=== PATIENT | male | born 1950 | race Caucasian/White ===

== ENCOUNTER → 2018-04-07 13:11 | Outpatient (BNVA) | payer MEDICARE, SELFPAY | PROVIDERS: PCP Specialist/Technologist Athletic Trainer; Referring Provider Specialist/Technologist Athletic Trainer; Visit Provider Physical Therapy Assistant | DX: Z12.11 Encounter for screening for malignant neoplasm of colon (principal); I10 Essential (primary) hypertension ==

== ENCOUNTER 2018-04-28 10:07 | Day surgery (SDC) | payer MEDICARE, SELFPAY ==
--- NOTE | 2018-04-28 06:53 | W.COLOREPORT ---
Date of service: 04/28/18 Time of Service: 11:44 Colonoscopy Report Date of procedure: 04/28/18 Pre-op diagnosis general: Colon Cancer Screening Post-op diagnosis procedure note: other (colorectal polyps) Procedure: Colonoscopy with polypectomy by forceps and hot snare Surgeon: Marta Mejia Anesthesia proc note operative: MAC ([place], FL[employer]ANGING [employer]BER/ ASA 3) Estimated blood loss (mL): 5 Pathology: other (ascending polyps x2, rectal polyp x2) Complications: None Disposition: same day Indications: Mr. Marquez is a pleasant 67 year old male who was seen in the office for a screening colonoscopy. Risks, benefits and complications have been reviewed. Complications include but are not limited to bleeding, pain, perforation, missed small lesion/polyp, sore throat, aspiration and adverse reaction to the medications. Questions were entertained and answered to their satisfaction and they wished to proceed. No guarantees were given or implied. Prep: Miralax/Dulcolax Procedure Start Time: 11:44 Procedure End Time: 12:15 Retraction Time: 24 Findings: 1. Ascending colon polyps x 2 2. proximal rectal polyp x1 3/ distal rectal polyp x1 Procedure Description: After informed consent was obtained the patient was taken to the procedure room and placed in a left decubitous position. Monitors were applied and a time out was done. The patients name, date of , procedure, allergies to medications and metal in their body was reviewed. The patient was then sedated. Once sedated and comfortable a rectal exam was done. External exam was normal. Internal exam revealed a normal sphincter tone and no palpable masses. The prostate was smooth. The scope was then introduced and retro-flexed. No internal hemorrhoids were identified. The scope was then advanced to the cecum without difficulty. The TI and appendiceal orifice were identified. The prep was good. The scope was then slowly retracted over 24 minutes back into the rectum. Polyps were removed in the ascending colon x2 with cold forceps, one in the proximal rectum with hot snare and one in the distal rectum with cold forceps. The scope was removed and the patient was woken up and taken back to Same day surgery in stable condition. The patient tolerated the procedure well and there were no immediate complications. Follow up: The patient should follow up in 3-5 years unless they develop changes in bowel habits or other new gastrointestinal complaints.
--- NOTE | 2018-04-28 06:56 | PDOC.DSDIS_ITS ---
Discharge Plan Disposition Patient Disposition: HOME Condition: Good Discharge Details Reason For Visit: colon Cancer Screening Attending Provider: Marta Mejia Primary Care Provider: Morales Back Home Meds and New Rx's Prescriptions: Continued prednisone 1 mg tablet,delayed release (DR/EC) 1 mg PO DAILY RF: 0 omeprazole 20 mg capsule,delayed release(DR/EC) 20 mg PO DAILY RF: 0 hydroxychloroquine 200 mg tablet 200 mg PO BID RF: 0 Breo Ellipta 100-25 mcg/dose blister with device 1 inh IH DAILY RF: 0 Chantix 0.5 mg tablet 0.5 mg PO DAILY RF: 0 lisinopril 10 MG tablet 10 mg PO QAM RF: 0 bupropion HCl 150 MG tablet extended release 12 hr 1 tab PO BID RF: 0 aspirin [Aspir-81] 81 MG tablet,delayed release (DR/EC) 1 tab PO DAILY RF: 0 cholecalciferol (vitamin D3) 1,000 UNITS tablet 1 tab PO DAILY RF: 0 naproxen sodium [Aleve] 220 MG capsule 2 cap PO BID RF: 0 Discontinued bisacodyl [Dulcolax (bisacodyl)] 5 mg tablet,delayed release (DR/EC) 5 mg PO ONCE Qty: 4 RF: 0 polyethylene glycol 3350 17 gram/dose powder 255 g PO ONCE Qty: 255 RF: 0 Discharge Instructions Instructions: Colonoscopy (DC), Colorectal Polyps (DC) Additional Instructions: Findings: 4 polyps Follow up: 3-5 years Please call if you develop: fevers >101.5 Nausea or Vomiting Abdominal pain that is not transient DAY SURGERY UNIT POST COLONOSCOPY INSTRUCTIONS 1. Because there will be medication in your system for the next 24 hours, you may feel a little sleepy. Your coordination will be affected. Therefore: a. Do not drive or operate dangerous equipment for 24 hours. b. Do not drink alcohol beverages for 24 hours (not even beer). c. Plan to go home and rest for the day. 2. Generally there are no restrictions on your activity after a day or so has gone by, but you may feel a bit fatigued for a few days. 3 After you arrive home you may have a light meal and return to a normal diet as you can tolerate it without feeling sick to your stomach. 4. After surgery, you may feel pain or discomfort. This should be only transie nt, but if it persists please contact your doctor. 5. If there are any questions regarding the findings of your procedure, please feel free to contact your doctor. 6. If you are unable to contact your doctor with a problem, contact the hospital at [phone]. 7. Continue all your regular medications unless directed otherwise. I understand the above instructions and have no questions. Signature of Patient or Responsible Adult Escort Date/Time Name of Responsible Adult Escort Signature of Nurse Date/Time Activity:: Activity as Tolerated Diet:: As Tolerated Discharge Orders Discharge Orders: Discharge Order (Routine); Ordered 04/28/18 Ordered By: Marta Mejia DS: Diagnosis Discharge Diagnosis (1) S/P colonoscopy: Status: Acute (2) Colorectal polyp detected on colonoscopy: Status: Acute
[2018-04-28 10:43] VITALS: BP 158/85; PULSE 61; RESP 16; TEMP 36.6; O2SAT 96
[2018-04-28] MEDS: Lactated Ringers 1,000 ML 80 ML IV (11:07)
--- NOTE | 2018-04-28 11:53 | BOWEL_PTH ---
PATIENT: Rajan Marquez LOC: [facility] U#:[id number] AGE/SX: 67/M ROOM: RE04/28/[address]: Marta Mejia MD : 1950 BED: DIS: 04/28/2018 SPEC #: [id number] RECD: 04/28/18 13:12 STATUS: STACIA RE #: [id number] ARIANE: 04/28/18 11:[address]: Marta Mejia DEPT: Surgical Specimen RECD BY: Elaine Paul ENTERED: 04/28/18 13:14 SP TYPE: Bowel OTHR DR: Morales Back Tissues: 1 - BIOPSY BOWEL 2 - BIOPSY BOWEL 3 - BIOPSY BOWEL Procedures: GROSS AND MICRO LEVEL 4 Comments: [id number]
[2018-04-28 12:49] VITALS: BP 138/70; PULSE 58; RESP 16; TEMP 35.5; O2SAT 98
== END 2018-04-28 13:13 | disposition home or self-care (01) ==
LOC: SUR 10:08
PROVIDERS: PCP Specialist/Technologist Athletic Trainer; Visit Provider Surgery
PROC: 0DJD8ZZ Inspection of Lower Intestinal Tract, Via Natural or Artificial Opening Endoscopic (ICD-10-PCS; CPT 45378; principal; 2018-04-28 10:30)
DX: Z12.11 Encounter for screening for malignant neoplasm of colon (principal); D12.2 Benign neoplasm of ascending colon; D12.8 Benign neoplasm of rectum; K21.9 Gastro-esophageal reflux disease without esophagitis; I10 Essential (primary) hypertension; F17.210 Nicotine dependence, cigarettes, uncomplicated
CPT/HCPCS: 45385; 45380; 88305

== ENCOUNTER 2018-12-12 13:19 | Outpatient (CLI) | payer MEDICARE, SELFPAY ==
[2018-12-12 13:43] LABS: HCT 42.4 % (40.0-50.0); HGB 14.5 g/dL (13.5-17.5)
[2018-12-12 14:20] LABS: Anion Gap 13.5 mmol/L (3-11); BUN 27 mg/dL (7-18); CO2 23.5 mmol/L (21.0-32.0); CREATININE 1.16 mg/dL (0.70-1.30); Calcium 9.5 mg/dL (8.5-10.1); Chloride 104 mmol/L (98-107); Glucose 80 mg/dL (70-100); Potassium 4.1 mmol/L (3.5-5.1); Sodium 141 mmol/L (136-145)
== END 2018-12-12 13:39 ==
PROVIDERS: PCP Specialist/Technologist Athletic Trainer; Visit Provider Specialist/Technologist Athletic Trainer
DX: I10 Essential (primary) hypertension (principal)
CPT/HCPCS: 36415; 80048; 85014; 85018

== ENCOUNTER 2019-09-18 02:08 | Outpatient (CLI) | payer OTHER, SELFPAY ==
--- NOTE | 2019-09-18 10:45 | DI.CTLCSR_ITS ---
EXAM: CT CHEST LUNG CANCER SCREEN CLINICAL HISTORY: The patient reportedly has a History of Smoking 30 pack years and presently smokes or has quit the past 15 years. TECHNIQUE: Imaging Protocol: Axial computed tomography images with coronal and sagittal reformatted images were created and reviewed. Low-dose screening protocol. COMPARISON: No exams were available for comparison FINDINGS: Tracheobronchial tree: Patent where visualized. Mediastinum and Jana: No dominant adenopathy or fluid collection. Pulmonary parenchyma: No consolidation or dominant measurable mass. No architectural distortion. Lung Nodules: 5 millimeter circumscribed nodule left lower lobe. Pleura: No effusion or pneumothorax. Heart: The heart is not dilated. No coronary artery calcifications are seen. Aorta: Thoracic aorta non-dilated. Mild calcification. Upper abdomen: Unremarkable. Bones: Mild degenerative disc changes in the spine.. Soft Tissues: Unremarkable. IMPRESSION: 5 millimeter left lower lobe nodule. Lung RADS Cat 2 - Benign Appearance / Behavior: Nodules with a very low likelihood of becoming a clin ically active cancer due to size or lack of growth Lung-RADS 1.0 CATEGORIES: Category 0 - Prior chest CT exam(s) being located for comparison. Category 1 - Annual screening in 12 months. No nodules or definitely benign nodules. Category 2 - Annual screening in 12 months. Benign appearance. Nodules with low likelihood of becomin g active cancer. Category 3 - 6-month follow-up. Probably benign. Short-term follow-up suggested. Nodules with low lik elihood of becoming active cancer. Category 4A - 3-month follow-up and CT/PET if >8 mm in size. Suspicious finding. Findings which requi re additional testing. Category 4B - Findings which require additional testing and tissue sampling. Suspicious finding. C Added to Any of the Above - History of prior lung cancer screening. S Added to Any of the Above - Significant unexpected other finding. RADIATION DOSE DELIVERED: 95.81mGy.cm Total DLP DATA REPOSITORY: All CT scans at this facility are submitted to the National Radiology Data Registry (NRDR) Dose Index Registry (DIR) with the [employer] (ACR). RADIATION OPTIMIZATION: All CT scans at this facility use at least one of these dose optimization te chniques: automated exposure control; mA and/or kV adjustment per patient size (includes targeted exa ms where dose is matched to clinical indication); or iterative reconstruction.
== END 2019-09-18 02:28 ==
PROVIDERS: PCP Specialist/Technologist Athletic Trainer; Visit Provider Internal Medicine
DX: Z12.2 Encounter for screening for malignant neoplasm of respiratory organs (principal); F17.210 Nicotine dependence, cigarettes, uncomplicated; R91.1 Solitary pulmonary nodule
CPT/HCPCS: G0297

== ENCOUNTER 2020-05-18 09:39 | Outpatient (REF) | payer OTHER, SELFPAY ==
--- OUTSIDE RECORDS SUMMARY | 2020-05-18 09:51 | XMS_ITS ---
:1950 Author Care Team Providers Name Role Phone [facility] Primary Care Provider [phone] Allergies Code Code System Name Reaction Severity Status Onset NKDA ? Medications Name Status Start Date Stop Date ? ? Breo Ellipta 200 mcg-25 mcg/dose powder for inhalation Active ? Not available Inhale 1 puff every day by inhalation route. Flomax 0.4 mg capsule,extended release Active ? Not available Take 1 capsule every day by oral route. fluticasone furoate 100 mcg-vilanterol 25 mcg/dose inhalation po wder Active ? Not available Inhale 1 puff every day by inhalation route. hydroxychloroquine 200 mg tablet Active ? Not available Take 1 tablet every day by oral route. lisinopril 20 mg tablet Active ? Not avai lable Take 1 tablet every day by oral route. Low Dose Aspirin 81 mg tablet,delayed release Active ? Not available Take 1 tablet every day by oral route. omeprazole 20 mg capsule,delayed release Active ? Not available Take 1 capsule every day by oral route. Proair Digihaler 90 mcg/actuation aerosol powder breath act, sen sor Active ? Not available Inhale 2 puffs every 4 hours by inhalation route. sildenafil 50 mg tablet Active ? Not avai lable Take 1 tablet every day by oral route. Vitamin D Active ? Not available Wellbutrin SR 150 mg tablet, 12 hr sustained-release Active ? Not available Take 1 tablet twice a day by oral route. Problems Name Status Onset Date Source ? Adenomatous Polyp of Colon Active 09/08/2019 ? Anxiety Active 09/08/2019 ? Alcohol Abuse Active 09/08/2019 ? Nicotine Dependence Active 09/08/2019 ? Depressive Disorder Active 09/08/2019 ? Attention Deficit Hyperactivity Disorder Active 020 ? Cataract Active 09/08/2019 ? Hearing Loss Active 09/08/2019 ? Hypertensive Disorder Active 09/08/2019 ? Coronary Arteriosclerosis Active 09/08/2019 ? Chronic Obstructive Lung Disease Active 09/08/2019 ? Benign Prostatic Hyperplasia Active 09/08/2019 ? Procedures Date Name Performed by ? 09/10/2019 LDCT, Chest, for Lung Cancer Xray [facility] [address] [place], [place] [address] ([address]) 10/16/2019 LDCT, Chest, for Lung Cancer Xray [facility] [address] [place], [place] [address] (Work [address]) Results Lab Results None recorded. Past Encounters 10/16/2019 Chronic Obstructive Lung Disease; Smoker Kasie Marcus MD: [address] [place] [address] Dr javed [address] [phone], Ph. 09/10/2019 Chronic Obstructive Lung Disease; Smoker Kasie Marcus MD: [address] [place] [address] Dr javed [address] [phone], Ph. Social History Tobacco Smoking Status Heavy Tobacco Smoker (1 PPD) Vaccine List Vaccine Type influenza, injectable, quadrivalent 05/28/2019 pneumococcal conjugate PCV 13 12/08/2015 pneumococcal polysaccharide PPV23 12/27/2011 Tdap 12/27/2011 Plan of Care Reminders Provider Appointments None ? ? recorded. Lab None ? ? recorded. Referral None ? ? recorded. Procedures None ? ? recorded. Surgeries None ? ? recorded. Imaging None ? ? recorded. Vitals 10/16/2019 09:00AM Office 15 Height Weight BMI Blood Pressure 172.72 cm 94 kg 31.5 kg/m2 120/70 mm[Hg] 09/10/2019 10:45AM Office 15 Height Weight BMI Blood Pressure 172.72 cm 97 kg 32.5 kg/m2 130/82 mm[Hg]
[2020-05-18 17:09] LABS: Anion Gap 12.1 mmol/L (3-11); BUN 28 mg/dL (7-18); CO2 24.9 mmol/L (21.0-32.0); CREATININE 1.3 mg/dL (0.70-1.30); Calcium 9.5 mg/dL (8.5-10.1); Calculated LDL 88 mg/dL (<100); Chloride 103 mmol/L (98-107); Cholesterol 148 mg/dL (<200); Estimated GFR 54.57 (mL/min/1.73m2); Glucose 95 mg/dL (74-106); HDL Cholesterol 51 mg/dL (40-60); Potassium 4.4 mmol/L (3.5-5.1); Sodium 140 mmol/L (136-145); Triglyceride 49 mg/dL (<150)
== END 2020-05-18 09:40 | disposition home or self-care (01) ==
LOC: NCHCN 09:39
PROVIDERS: PCP Specialist/Technologist Athletic Trainer; Visit Provider Nurse Practitioner Family
DX: I10 Essential (primary) hypertension (principal); F17.200 Nicotine dependence, unspecified, uncomplicated
CPT/HCPCS: 80048; 80061

== ENCOUNTER 2020-12-02 20:30 | Outpatient (REF) | payer OTHER, SELFPAY ==
[2020-12-02 19:39] LABS: Anion Gap 8.7 mmol/L (3-11); BUN 24 mg/dL (7-18); CO2 26.3 mmol/L (21.0-32.0); Chloride 107 mmol/L (98-107); Glucose 79 mg/dL (74-106); Sodium 142 mmol/L (136-145)
== END 2020-12-02 20:31 | disposition home or self-care (01) ==
LOC: NCHCN 20:30
PROVIDERS: PCP Specialist/Technologist Athletic Trainer; Visit Provider Nurse Practitioner Family
DX: J44.9 Chronic obstructive pulmonary disease, unspecified (principal); I10 Essential (primary) hypertension; R79.89 Other specified abnormal findings of blood chemistry; F17.200 Nicotine dependence, unspecified, uncomplicated
CPT/HCPCS: 80048

== ENCOUNTER 2020-12-23 00:29 | Outpatient (CLI) | payer OTHER, MEDICARE, SELFPAY ==
--- NOTE | 2020-12-23 | DI.CTLCSR_ITS ---
Exam(s) CT CHEST LUNG CANCER SCREEN EXAM: CT CHEST LUNG CANCER SCREEN CLINICAL HISTORY: SCREENING FOR LUNG CA, CURRENT SMOKER, F17.210 TECHNIQUE: Imaging Protocol: Axial computed tomography images with coronal and sagittal reformatted images were created and reviewed COMPARISON: CT CT CHEST LUNG CANCER SCREEN from 09/18/2019 FINDINGS: Tracheobronchial tree: Patent where visualized. Mediastinum and Jana: No dominant adenopathy or fluid collection. Pulmonary parenchyma: No consolidation . Lung Nodules: 2.2 x 2.1 x 2.8 centimeter spiculated mass in the medial left upper lobe. Spicules kristina ear to extend to the pleura which may be mildly thickened medially. Stable 5 millimeter left lower l obe nodule. Pleura: No effusion or pneumothorax. Heart: The heart is not dilated. No coronary artery calcifications are seen. Aorta: Thoracic aorta non-dilated. Upper abdomen: Unremarkable. Bones: Unremarkable for age. Soft Tissues: Unremarkable. IMPRESSION: 2.8 centimeter maximum dimension spiculated mass medial left upper lobe suspicious for lung carcinoma . Category Lung RADS Cat 4B - Suspicious: Findings for which additional diagnostic testing and/or tissu e sampling is recommended Lung-RADS 1.0 CATEGORIES: Category 0 - Prior chest CT exam(s) being located for comparison. Category 1 - Annual screening in 12 months. No nodules or definitely benign nodules. Category 2 - Annual screening in 12 months. Benign appearance. Nodules with low likelihood of becomin g active cancer. Category 3 - 6-month follow-up. Probably benign. Short-term follow-up suggested. Nodules with low lik elihood of becoming active cancer. Category 4A - 3-month follow-up and CT/PET if >8 mm in size. Suspicious finding. Findings which requi re additional testing. Category 4B - Findings which require additional testing and tissue sampling. Modifier S- Potentially clinically significant findings (non lung cancer) RADIATION DOSE DELIVERED: 85mGy.cm Total DLP 1.84mGy CTDIvol DATA REPOSITORY: All CT scans at this facility are submitted to the National Radiology Data Registry (NRDR) Dose Index Registry (DIR) with the [employer] (ACR). RADIATION OPTIMIZATION: All CT scans at this facility use at least one of these dose optimization te chniques: automated exposure control; mA and/or kV adjustment per patient size (includes targeted exa ms where dose is matched to clinical indication); or iterative reconstruction.
== END 2020-12-23 00:49 ==
PROVIDERS: PCP Nurse Practitioner Family; Visit Provider Nurse Practitioner Family
DX: Z12.2 Encounter for screening for malignant neoplasm of respiratory organs (principal); F17.210 Nicotine dependence, cigarettes, uncomplicated; R91.8 Other nonspecific abnormal finding of lung field; J98.4 Other disorders of lung
CPT/HCPCS: 71271

== ENCOUNTER 2021-07-07 01:26 | Outpatient (RCR) | payer MEDICARE, SELFPAY ==
--- NOTE | 2021-07-07 10:50 | HOLTER_ITS ---
APPROVED REPORT Conclusion This is a 48-hour Holter monitor ordered for an irregular heart rate Average heart rate overall was 74, minimum 55, maximum 129 Atrial fibrillation was present 37 percent of the time of the recording. Maximum rate in atrial fibr illation was 137 There was no high-grade AV block, no pauses greater than 3 seconds There were no significant ventricular dysrhythmia There were no apparent patient symptoms
== END 2021-07-08 23:59 | disposition home or self-care (01) ==
LOC: RT 01:26
PROVIDERS: PCP Nurse Practitioner Family; Visit Provider Nurse Practitioner Family
DX: I49.8 Other specified cardiac arrhythmias (principal)
CPT/HCPCS: 93225

== ENCOUNTER 2021-07-13 | Outpatient (RCR) | payer MEDICARE, SELFPAY | END 2021-07-17 12:52 | disposition home or self-care (01) | LOC: RT | PROVIDERS: PCP Nurse Practitioner Family; Referring Provider Nurse Practitioner Family; Visit Provider Internal Medicine Cardiovascular Disease | DX: I49.8 Other specified cardiac arrhythmias (principal); I48.91 Unspecified atrial fibrillation | CPT/HCPCS: 93227; 93226 ==

== ENCOUNTER 2021-07-20 11:54 | Outpatient (REF) | payer MEDICARE, SELFPAY ==
[2021-07-20 19:09] LABS: Abs Immature Grans 0.03 10^3/uL (0.0-0.06); Absolute Basophil Count 0.02 10^3/uL (0.0-0.2); Absolute Lymphocyte Count 1.33 10^3/uL (1.2-3.4); Absolute Neutrophil Count 7.75 10^3/uL (1.2-6.7); Basophils % 0.2; HCT 41.3 % (40.0-50.0); HGB 13.6 g/dL (13.5-17.5); Immature Grans % 0.3; Lymphocytes % 12.8; MCH 29.4 pg (27.0-33.0); MCHC 32.9 % (32.0-36.0); MCV 89 fL (80-95); MPV 9.9 fL (8.0-11.0); Monocytes % 12.5; Neutrophils % 74.2; Platelet Count 342 10^3/uL (130-400); RBC 4.62 10^6/uL (4.36-5.78); RDW 12.3 % (11.8-14.1); RDW-SD 40.2 fL; WBC 10.43 10^3/uL (4.4-10.8)
[2021-07-20 19:31] LABS: ALT 32 U/L (16-63); AST 32 U/L (15-37); Albumin 3.2 g/dL (3.4-5.0); Alkaline Phosphatase 62 U/L (46-116); Anion Gap 12.9 mmol/L (3-11); BUN 17 mg/dL (7-18); Bilirubin, Direct 0.2 mg/dL (0.0-0.2); Bilirubin, Total 0.6 mg/dL (0.2-1.0); CO2 23.1 mmol/L (21.0-32.0); Calcium 9.1 mg/dL (8.5-10.1); Chloride 98 mmol/L (98-107); Glucose 75 mg/dL (74-106); Potassium 4.4 mmol/L (3.5-5.1); Sodium 134 mmol/L (136-145); TSH (W/Ref FT4) 1.05 uIU/mL (0.36-3.74); Total Protein 6.9 g/dL (6.4-8.2)
== END 2021-07-20 11:55 | disposition home or self-care (01) ==
LOC: NCHCN 11:54
PROVIDERS: PCP Nurse Practitioner Family; Visit Provider Nurse Practitioner Family
DX: I48.91 Unspecified atrial fibrillation (principal)
CPT/HCPCS: 80048; 80076; 84443; 85025

== ENCOUNTER 2021-08-10 19:27 | Outpatient (REF) | payer MEDICARE, SELFPAY ==
[2021-08-10 22:30] LABS: PSA, Screening 4.7 ng/mL (<=6.5)
== END 2021-08-10 19:28 | disposition home or self-care (01) ==
LOC: NCHCN 19:27
PROVIDERS: PCP Nurse Practitioner Family; Visit Provider Nurse Practitioner Family
DX: Z12.5 Encounter for screening for malignant neoplasm of prostate (principal); Z00.00 Encounter for general adult medical examination without abnormal findings
CPT/HCPCS: 84153

== ENCOUNTER 2021-09-01 02:37 | Outpatient (CLI) | payer MEDICARE, SELFPAY ==
[2021-09-01] MEDS: Albuterol HFA 18 GM 200 PUFF INH IH (14:08)
[2021-09-01] MEDS: Inhaler, Assist Device 1 EACH MC (14:09)
--- NOTE | 2021-09-01 16:51 | W.PFT ---
Date of service: 09/01/21 Time of Service: 13:05 Pulmonary Function Test Result Requesting Provider Tami Paz Indications: COPD Interpretation Spirometry: Although the FEV1/FVC ratio is normal, mild airflow limitation may be suggested by the flow volume loop and volume time curve. There is no significant bronchodilator response. Lung Volumes: Normal lung volumes Diffusion Capacity: Normal diffusion Airway Pressure: Normal airways resistance. Impression Likely mild airflow obstruction. Clinical Correlation therefore is recommended.
== END 2021-09-01 02:38 | disposition home or self-care (01) ==
LOC: RT 02:38
PROVIDERS: PCP Nurse Practitioner Family; Visit Provider Nurse Practitioner Family
DX: J44.9 Chronic obstructive pulmonary disease, unspecified (principal); R94.2 Abnormal results of pulmonary function studies; R06.09 Other forms of dyspnea; Z86.16 Personal history of COVID-19; F17.210 Nicotine dependence, cigarettes, uncomplicated
CPT/HCPCS: 94060; 94726; 94729

== ENCOUNTER 2021-09-08 00:53 | Outpatient (CLI) | payer MEDICARE, SELFPAY ==
--- NOTE | 2021-09-08 | DI.US_ITS ---
APPROVED REPORT EXAM: Comprehensive 2D, Doppler, and color-flow Echocardiogram Patient Location: Out-Patient Dental Assistant Instructor: Jocelyn Rincon RDCS (AE) Indications: Atrial Fibrillation Other Information Study Quality: Adequate Conclusion Normal left ventricular wall thickness and chamber size. Estimated ejection fraction is 60%. Wall m otion is normal Normal right ventricular size and systolic function Both atria are normal in size There is no structural or hemodynamically significant valvular disease Mildly dilated ascending aorta measuring 3.66 cm Estimated right ventricular systolic pressure is normal at 28 mmHg Wall motion Left Ventricle The left ventricle is normal size. The left ventricular systolic function is normal. The left ventric ular ejection fraction is within the normal range. There is normal left ventricular wall thickness. T here is normal LV segmental wall motion. There is no ventricular septal defect visualized. LVEF is 60 %. Right Ventricle The right ventricle is normal size. The right ventricular systolic function is normal. Atria The left atrium size is normal. The right atrium size is normal. The interatrial septum is intact wit h no evidence for an atrial septal defect. Aortic Valve The aortic valve is normal in structure. Aortic valve is trileaflet. There is no aortic valvular sten osis. No aortic regurgitation is present. Mitral Valve The mitral valve is normal in structure. No evidence of mitral valve stenosis. Trace to mild mitral r egurgitation. Tricuspid Valve The tricuspid valve is normal in structure. There is no tricuspid valve stenosis. Trace tricuspid reg urgitation. Pulmonic Valve The pulmonary valve is normal in structure. There is no pulmonic valvular stenosis. Trace to mild pul hoda regurgitation. Great Vessels The aortic root is normal in size. The ascending aorta is mildly dilated. Aortic arch is normal in ca liber. IVC is normal in size and collapses >50% with inspiration. Pericardium There is no pericardial effusion. 2D Dimensions IVSD d PLAX 1.00 cm M: 0.6-1.2 LV Vol A2C d MOD 92.9 mL LVPW d PLAX 1.03 cm M: 0.6 - 1.2 LV Vol A4C d MOD 115.9 mL LVID d PLAX 5.36 cm M: 4.2 - 5.8 LA vol/ BSA A2C s A-L 18.7 mL/m2 LVDs 3.45 cm M: 2.5 - 4.0 LA vol/ BSA A4C s A-L 18.1 mL/m2 Ao Root d 3.58 cm M: 3.1 - 3.7 LA Vol/ BSA Biplane s A-L 19.0 mL/m2 RA Area A4C 13.96 cm2 LA Area A4C s MOD 13.15 cm2 RA Vol/ BSA A4C s A-L 18.0 mL/m2 LA Area A2C s MOD 13.76 cm2 Ao Asc Diam d 3.66 cm M: 2.6 - 3.4 LV EF A4C MOD 62.4 % LV EF Teichholz 64.1 % LV EF A2C MOD 61.1 % LVEF (Braun's) 59.93 % M: 52 - 72 LV EF Biplane MOD 59.9 % LV Volume 79.38 mL M: 62 - 150 SV 62.52 mL LV Volume Index 41.56 mL/m2 M: 34 - 74 SV Index 32.62 mL/m2 LV Vol Biplane MOD 104.3 mL FS 35.25 % M-Mode TAPSE 2.44 cm (M/F) >1.7 LV Diastology MV E' medial 0.077 (>0.07 m/s) E/A Ratio 0.8 LV E/e MED 8.10 (<14) MV E Vmax 0.63 (0.4-1.3 m/s) MV E' lateral 0.080 (>0.1 m/s) MV A Vmax 0.80 (0.4-1.3 m/s) LV E/e LAT 7.80 (<14) MV E/A Ratio 0.76 MV E/E' medial 8.12 MV E/E' lateral 7.83 Aortic Valve LVOT Area 3.11 cm2 AoV Area Vmax 1.93 cm2 LVOT Vmax 1.01 m/s AoV Area/ BSA (Vmax) 1.00 cm2/m2 LVOT Mean Deepak. 0.67 m/s SENDY Mean Deepak. 1.84 cm2 LVOT Peak Grad 4.1 mmHg SENDY Mean Deepak. Index 0.96 cm2/m2 LVOT Mean Grad 2.1 mmHg LVOT VTI 0.181 m LVOT Diam s 1.95 cm AoV Vmax 1.63 m/s Velocity Ratio 0.61 AoV Mean Depeak. 1.14 m/s AoV Peak Grad 10.6 mmHg LVOT SV 56.28 mL AoV Mean Grad 6.0 mmHg AoV VTI 0.316 m AoV Area VTI 1.78 cm2 AoV Area/ BSA (VTI) 0.93 cm/m2 Mitral Valve MV DT 285 (160-240 msec) MV PHT 83 msec MV Area PHT 2.67 cm2 MV VTI 0.262 m MV Area VTI 2.15 (4.0-6.0 cm2) Pulmonary Valve PV Vmax 1.01 (0.5-1.5 m/s) RVOT Peak Gr. 1.82 mmHg PV Peak Grad 4.1 mmHg RVOT Mean Gr. 0.90 mmHg PV Mean Grad 2.3 mmHg RVOT VTI 0.130 m PV VTI 0.193 m RVOT Vmax 0.68 m/s Tricuspid Valve TR Peak Grad 23.6 mmHg TR Vmax 2.43 m/s
== END 2021-09-08 01:13 ==
PROVIDERS: PCP Nurse Practitioner Family; Visit Provider Nurse Practitioner Family
DX: I48.91 Unspecified atrial fibrillation (principal)
CPT/HCPCS: 93306

== ENCOUNTER → 2021-09-15 09:03 | Outpatient (BNVA) | payer MEDICARE, SELFPAY | PROVIDERS: PCP Nurse Practitioner Family; Referring Provider Nurse Practitioner Family; Visit Provider Internal Medicine Cardiovascular Disease | DX: I48.91 Unspecified atrial fibrillation (principal); I10 Essential (primary) hypertension; C34.92 Malignant neoplasm of unspecified part of left bronchus or lung; R42 Dizziness and giddiness; R00.2 Palpitations | CPT/HCPCS: 93005; 99203 ==

== ENCOUNTER 2021-09-28 11:30 | Outpatient (REF) | payer MEDICARE, SELFPAY ==
[2021-09-28 22:40] LABS: PSA, Diagnostic 2.4 ng/mL (<=6.5)
== END 2021-09-28 11:31 | disposition home or self-care (01) ==
LOC: NCHCN 11:30
PROVIDERS: PCP Nurse Practitioner Family; Visit Provider Nurse Practitioner Family
DX: N40.0 Benign prostatic hyperplasia without lower urinary tract symptoms (principal)
CPT/HCPCS: 84153

== ENCOUNTER → 2021-10-13 12:43 | Outpatient (BNVA) | payer MEDICARE, SELFPAY | PROVIDERS: PCP Nurse Practitioner Family; Referring Provider Nurse Practitioner Family; Visit Provider Internal Medicine Cardiovascular Disease | DX: Z79.01 Long term (current) use of anticoagulants (principal); Z87.891 Personal history of nicotine dependence; I48.91 Unspecified atrial fibrillation; I10 Essential (primary) hypertension | CPT/HCPCS: 99213 ==

== ENCOUNTER 2021-12-05 03:09 | Outpatient (CLI) | payer MEDICARE, SELFPAY ==
[2021-12-07 10:02] LABS: TB Interpretation Negative (Negative); TB1 Ag minus Nil 0.01 IU/ml; TB2 Ag minus Nil 0.01 IU/mL
== END 2021-12-05 03:10 | disposition home or self-care (01) ==
LOC: LBO 03:09
PROVIDERS: PCP Nurse Practitioner Family; Visit Provider Student in an Organized Health Care Education/Training Program
DX: J90 Pleural effusion, not elsewhere classified (principal); C34.92 Malignant neoplasm of unspecified part of left bronchus or lung; Z87.891 Personal history of nicotine dependence
CPT/HCPCS: 36415; 86480

== ENCOUNTER 2021-12-07 02:58 | Outpatient (CLI) | payer MEDICARE, SELFPAY ==
--- NOTE | 2021-12-07 08:15 | DI.RAD_ITS ---
Exam(s) XR CHEST 2V PA LATERAL EXAM: XR CHEST 2V PA LATERAL CLINICAL HISTORY: assess pleural effusion, recurrent,j90 TECHNIQUE: 2D digital imaging was performed of the chest. Two images were obtained. PA and lateral views were obtained. FINDINGS: MEDIASTINUM: Normal. HEART: Normal. PULMONARY VASCULATURE: Normal. LUNGS: Clear. PLEURAL SPACE: There is a persistent left pleural effusion. Its appearance raises a question of a lo culated collection. No right pleural effusion is seen. No pneumothorax is present. BONE:Within normal limits for the patient's age. OTHER FINDINGS:Normal. IMPRESSION: Persistent left pleural effusion which may be loculated. DATA REPOSITORY: RADIATION DOSE DELIVERED:
== END 2021-12-07 03:18 ==
LOC: DI 02:59
PROVIDERS: PCP Nurse Practitioner Family; Visit Provider Student in an Organized Health Care Education/Training Program
DX: J90 Pleural effusion, not elsewhere classified (principal)
CPT/HCPCS: 71046

== ENCOUNTER 2021-12-11 08:59 | Day surgery (SDC) | payer MEDICARE, SELFPAY ==
[2021-12-11 09:30] VITALS: BP 133/74; PULSE 54; RESP 18; TEMP 36.7; O2SAT 100
[2021-12-11] MEDS: Lidocaine 1% Pres-Free 5 ML VIAL IJ (10:47)
--- NOTE | 2021-12-11 10:54 | PAPNONF_PTH ---
PATIENT: Rajan Marquez LOC: [facility] U#:[id number] AGE/SX: 70/M ROOM: RE12/11/[address]: Josephine Sotomayor MD : 1950 BED: DIS: 12/11/2021 SPEC #: [id number] RECD: 12/11/21 12:46 STATUS: STACIA REQ #: [id number] ARIANE: 12/11/21 10:[address]: Josephine Sotomayor [facility]PT: [facility] Cytology RECD BY: Elaine Paul ENTERED: 12/11/21 12:47 SP TYPE: JAMEL ROBERTSON DR: Tami Olivia Tissues: 1 - BODY FLUID CYTO(NOT S/U/N/EM)[facility] Procedures: BODY FLUID CYTO(NOT SPU/UR/NIP/ENDOM)[facility] Comments: [id number] (TOTAL VOLUME = 50 ml, SENT FRESH)
[2021-12-11 11:09] VITALS: BP 147/76; PULSE 55; RESP 18; TEMP 36.5; O2SAT 100
--- NOTE | 2021-12-11 11:15 | DI.RAD_ITS ---
Exam(s) XR PORTABLE CHEST AP EXAM: XR PORTABLE CHEST AP CLINICAL HISTORY: s/p left thoracentesis, trapped lung? TECHNIQUE: 2D digital imaging was performed. CR XR CHEST 2V PA LATERAL from 12/07/2021 FINDINGS: No change in appearance of loculated left pleural effusion and left-sided postsurgical volume loss. Heart size is normal. Right lung is clear. No pneumothorax. IMPRESSION: Stable appearance of loculated left pleural effusion. DATA REPOSITORY: RADIATION DOSE DELIVERED:
--- NOTE | 2021-12-11 11:27 | W.PM.OP ---
Date of service: 12/11/21 Time of Service: 10:30 Operative Note Operative Note PRE-OP DIAGNOSIS: Loculated pleural effusion PROCEDURE: Left Thoracentesis Local 1% Lidocaine, 6cc in total used Procedure Description: Thoracentesis The patient gave written informed consent for the procedure after risks and benefits were explained to him. Patient was brought to the procedure room where his vital signs were taken and were all within normal limits. A complete and OR compliant time out was performed indicating correct patient, site and procedure. Patient was positioned sitting over the side of the bed, leaning forward on a table. I completed an ultrasound of the left lung and found a complex, loculated pleural effusion with small to moderate sized pockets. A decently sized pocket was found and the site was marked. The area was cleaned and draped in normal sterile fashion. The site was anesthetized with 6cc of lidocaine effectively. The catheter was inserted (noting the lung was approximately 5cm from skin) without complication. Pleural fluid was withdrawn that was yellow and transparent with some visible cellularity in appearance. 50cc of fluid was collected in a syringe and an additional 200cc was collected for cytopathology into appropriate bottles. Once the drainage began to slow, the catheter was removed while patient was humming. Pulse ox after the procedure was 97%. The case was terminated and the patient was brought back to [facility] in stable condition. Post procedure chest x-ray was negative for a pneumothorax by my read, but pending radiology read before the patient with be discharged home. Specimens collected: 250cc of pleural fluid of the left lung Tests ordered: Cell diff, bacterial culture, fungal culture, glucose, ldh, flow cytometry, protein, cytopathology Josephine Sotomayor MD Pulmonary & Critical Care
[2021-12-11 11:33] LABS: Clarity Clear; Nucleated Cells 601 uL (0); Source Pleural
[2021-12-11 11:38] LABS: Mononuclear Cells 100 %; Polynuclear Cells 0 %
[2021-12-11 18:49] LABS: Glucose, Fluid 38 mg/dL (See Note)
[2021-12-12 13:22] LABS: Lactate Dehydrogenase (LD), BF 136 U/L
[2021-12-13 10:04] LABS: Protein,Total, BF 2.6 g/dL
[2021-12-13 10:15] LABS: Leukemia/Lymphoma by FC (Blood (See below)
[2022-01-08 10:48] LABS: Fungus Smear No Fungi Seen
== END 2021-12-11 13:00 | disposition home or self-care (01) ==
LOC: SUR 09:02
PROVIDERS: PCP Nurse Practitioner Family; Visit Provider Student in an Organized Health Care Education/Training Program
PROC: (CPT 32554; principal; 2021-12-11 10:30)
DX: J90 Pleural effusion, not elsewhere classified (principal); J94.8 Other specified pleural conditions
CPT/HCPCS: 32554; 87102; 87206; 88185; 71045; 81373; 83615; 84155; 84157; 87070; 87075; 87205; 88104; 88184; 88189; 89051

== ENCOUNTER 2022-01-03 02:00 | Outpatient (CLI) | payer MEDICARE, SELFPAY ==
--- NOTE | 2022-01-03 07:45 | DI.CT_ITS ---
Exam(s) CT CHEST W EXAM: CT CHEST W CLINICAL HISTORY: assess loculated pleural effusion,J90 TECHNIQUE: CT examination of the chest was performed with intravenous infusion of 70 cc of Omnipaque 350. FINDINGS: There is reportedly been a prior left upper lobectomy for lung carcinoma. There is a large left pleu ral effusion, grossly unchanged in appearance comparison with prior examination of October 30 from [facility].. No new pulmonary consolidation or mass. Previously described component of pneumo thorax on the left is no longer visible. There is no evidence of pulmonary embolic disease. There is unremarkable appearance of the thoracic aorta and major branches with no evidence of aneurysm or dissection. There is no mediastinal or hilar adenopathy. Tracheobronchial tree appears intact. No axillary or supraclavicular adenopathy. Visualized portions of the liver, spleen, and kidneys are unremarkable, note is again made of bilater al adrenal nodularity, unchanged from prior study period. IMPRESSION: Stable appearance of left pleural effusion, moderate size .. RADIATION DOSE DELIVERED: 555.87mGy.cm Total DLP 555.87mGy.cm Total DLP !Error CTDIvol DATA REPOSITORY: All CT scans at this facility are submitted to the National Radiology Data Registry (NRDR) Dose Index Registry (DIR) with the [employer] (ACR). RADIATION OPTIMIZATION: All CT scans at this facility use at least one of these dose optimization te chniques: automated exposure control; mA and/or kV adjustment per patient size (includes targeted exa ms where dose is matched to clinical indication); or iterative reconstruction.
[2022-01-03 13:23] LABS: CREATININE 1.2 mg/dL (0.70-1.30); Estimated GFR 64.25 (mL/min/1.73m2)
[2022-01-03] MEDS: Omnipaque 350 MG/ML 500 ML BTL-Imaging package 70 ML IJ (13:47)
[2022-01-03] MEDS: Normal Saline Flush 10 ML SYR IVP (13:48)
== END 2022-01-03 02:20 ==
LOC: DI 02:00
PROVIDERS: PCP Nurse Practitioner Family; Visit Provider Student in an Organized Health Care Education/Training Program
DX: J90 Pleural effusion, not elsewhere classified (principal)
CPT/HCPCS: 71260; 82565

== ENCOUNTER → 2022-01-08 12:46 | Outpatient (BNVA) | payer MEDICARE, SELFPAY | PROVIDERS: PCP Nurse Practitioner Family; Referring Provider Nurse Practitioner Family; Visit Provider Surgery | DX: Z86.010 Personal history of colon polyps (principal); Z12.11 Encounter for screening for malignant neoplasm of colon ==

== ENCOUNTER 2022-01-22 10:45 | Day surgery (SDC) | payer MEDICARE, SELFPAY ==
--- NOTE | 2022-01-22 06:26 | W.COLOREPORT ---
Date of service: 01/22/22 Time of Service: 11:54 Colonoscopy Report Date of procedure: 01/22/22 Pre-op diagnosis general: screening and Hx of polyps Post-op diagnosis procedure note: other (polyps and diverticulosis) Procedure: Colonoscopy with polypectomy Surgeon: Marta Mejia Anesthesia Type: General:No Airway Estimated blood loss (mL): 2 Pathology: other (ascending and descending colon polyp) Complications: None Disposition: same day Indications: It was very nice to meet Konstantin in the office today to discuss his next colonoscopy.? His last one was about 3 years ago when he was diagnosed with 4 tubular adenomas.? In the interim, he has been doing well, with no major changes in his GI history. Risks, benefits and complications have been reviewed. Complications include but are not limited to bleeding, pain, perforation, missed small lesion/polyp, sore throat, aspiration and adverse reaction to the medications. Questions were entertained and answered to their satisfaction and they wished to proceed. No guarantees were given or implied. Prep: Miralax/Dulcolax Procedure Start Time: :54 Procedure End Time: 12:18 Retraction Time: 12 minutes Findings: 2 small polyps mild sigmoid diverticulosis Procedure Description: After informed consent was obtained the patient was taken to the procedure room and placed in a left decubitous position. Monitors were applied and a time out was done. The patients name, date of , procedure, allergies to medications and metal in their body was reviewed. The patient was then sedated. Once sedated and comfortable a rectal exam was done. External exam was normal. Internal exam revealed a normal sphincter tone and no palpable masses. The prostate felt smooth and enlarged. The scope was then introduced and retro-flexed. No internal hemorrhoids, polyps or masses were identified on retro-flexion. The scope was then advanced to the cecum without difficulty. The ileocecal vlave and appendiceal orifice were identified. The prep was good. The scope was then slowly retracted over 12 minutes back into the rectum. Polyps were removed with snare in the descending colon and with forceps in the ascending colon. There was mild sigmoid diverticulosis noted. The scope was removed and the patient was woken up and taken back to Same day surgery in stable condition. The patient tolerated the procedure well and there were no immediate complications.
--- NOTE | 2022-01-22 06:27 | W.PM.DSUDISC ---
Date of service: 01/22/22 Time of Service: 12:28 Discharge Plan Disposition Patient Disposition: HOME Condition: Good Discharge Details Reason For Visit: colonoscopy Attending Provider: Marta Mejia Primary Care Provider: Tami Olivia Home Meds and New Rx's Prescriptions: Continued hydroxychloroquine 200 mg tablet 200 mg PO BID metoprolol succinate 25 mg tablet extended release 24 hr 25 mg PO DAILY Qty: 90 3RF albuterol sulfate [ProAir HFA] 90 mcg/actuation HFA aerosol inhaler 2 puff inhalation Q6H PRN lisinopril 20 mg tablet 20 mg PO DAILY bupropion HCl 150 mg tablet sustained-release 12 hr 150 mg PO QAM tamsulosin 0.4 mg capsule 0.4 mg PO DAILY Spiriva Respimat 2.5 mcg/actuation mist 2 inh inhalation QAM Qty: 12 3RF Xarelto 20 mg tablet 1 tab PO DAILY sildenafil 50 mg tablet 50 tab PO PRN PRN Label Comments: TAKE 1/2 TO 1 TABLET BY MOUTH 30 MINUTES PRIOR TO SEXUAL ACTIVITY NEEDED. MAXIMUM DAILY DOSE 2 Discontinued bisacodyl [Dulcolax (bisacodyl)] 5 mg tablet,delayed release (DR/EC) 5 mg PO ONCE Qty: 4 0RF Rx Instructions: Take according to provider's instructions for colonoscopy prep. polyethylene glycol 3350 17 gram/dose powder 17 g PO ONCE Qty: 238 0RF Rx Instructions: To be taken as directed by prescriber's office for colonoscopy prep. Discharge Instructions Instructions: Colorectal Polyps (DC), Diverticulosis (DC) Additional Instructions: Findings: 2 polyps Diverticulosis Follow up: 3-5 years Please call if you develop: fevers >101.5 Nausea or Vomiting Abdominal pain that is not transient Rectal bleeding that is more then a tbsp A hard abdomen and inability to pass gas DAY SURGERY UNIT POST ENDOSCOPY INSTRUCTIONS Instructions for everyone who is given Anesthesia: For your safety, please do the following for the next 24 Hours: a. Do not drive or operate dangerous equipment b. Do not drink alcohol beverages or use any recreational drugs for the first 24 hours or while taking pain medications. The medications in your body may have a reaction that can be dangerous. c. Do not make any important decisions or sign any important papers 1. Generally there are no restrictions on your activity after a day or so has gone by, but you may feel a bit fatigued for a few days. 2. After you arrive home you may have a light meal and return to a normal diet as you can tolerate it without feeling sick to your stomach. 3. After surgery, you may feel pain or discomfort. This should be only transient, but if it persists please contact your doctor. 4. If there are any questions regarding the findings of your procedure, please feel free to contact your doctor. 6. If you are unable to contact your doctor with a problem, contact the hospital at [phone]. 7. Continue all your regular medications unless directed otherwise. I understand the above instructions and have no questions. Signature of Patient or Responsible Adult Escort Date/Time Name of Responsible Adult Escort Signature of Nurse Date/Time Activity:: Activity as Tolerated Diet:: high fiber diet Discharge Orders Discharge Orders: Discharge Order (Routine); Ordered 01/22/22 Ordered By: Marta Mejia
[2022-01-22 11:15] VITALS: BP 133/96; PULSE 61; RESP 16; TEMP 36.4; O2SAT 99
[2022-01-22] MEDS: Lactated Ringers 1,000 ML 80 ML IV (11:25)
--- NOTE | 2022-01-22 11:29 | W.ANESPRE ---
General Info Date of Service Date Performed: 01/22/22 Height: 5 ft 8 in Weight: 74.8 kg Body Mass Index (BMI): 25.0 Surgical Procedure: Operation Date: 01/22/22 12:20 Proposed Procedure Side Surgeon deven Mejia MD Meds Allergies and Home Medications Allergies Allergy/AdvReac Type Severity Reaction Status Date / Time No Known Allergies Allergy Verified 01/08/22 12:48 Home Medication Medication Instructions Recorded hydroxychloroquine 200 mg tablet 200 mg PO BID 04/04/18 albuterol sulfate 90 mcg/actuation 2 puff inhalation Q6H PRN 05/24/21 aerosol inhaler (ProAir HFA) bupropion HCl 150 mg tablet,12 hr 150 mg PO QAM 05/24/21 sustained-release lisinopril 20 mg tablet 20 mg PO DAILY 05/24/21 tamsulosin 0.4 mg capsule 0.4 mg PO DAILY 05/24/21 metoprolol succinate 25 mg 25 mg PO DAILY #90 tabs 09/15/21 tablet,extended release 24 hr rivaroxaban 20 mg tablet (Xarelto) 1 tab PO DAILY 12/11/21 bisacodyl 5 mg tablet,delayed 5 mg PO ONCE #4 tabs 01/08/22 release (Dulcolax (bisacodyl)) polyethylene glycol 3350 17 17 g PO ONCE #238 grams 01/08/22 gram/dose oral powder tiotropium bromide 2.5 2 inh inhalation QAM #12 grams 01/15/22 mcg/actuation mist for inhalation (Spiriva Respimat) sildenafil 50 mg tablet 50 tab PO PRN PRN 01/19/22 Current Visit Medications: Current Medications Generic Name Dose Route Start Last Admin Trade Name Freq PRN Reason Stop Dose Admin Hyoscyamine Sulfate 0.125 mg 01/22/22 06:28 Hyoscyamine 0.125 Mg Sl/Oral/Chew SL DIRECTED PRN Ringer's Solution 1,000 mls @ 80 mls/hr 01/22/22 06:00 IV 02/18/22 23:59 INFUSION EAGLE IV Miscellaneous Supplies 1 each 01/22/22 06:00 Iv Access IV 02/18/22 23:59 DIRECTED EAGLE Ondansetron HCl 4 mg 01/22/22 06:28 Ondansetron 4 Mg/2 Ml Vial IVP Q4H PRN PRN Nausea / Vomiting Sodium Chloride 0 ml 01/22/22 06:00 Normal Saline Flush 10 Ml Syr IV 02/18/22 23:59 PRN PRN Sodium Chloride 0 ml 01/22/22 06:00 Normal Saline 10 Ml Vial IJ 02/18/22 23:59 DIRECTED PRN Sterile Water 0 ml 01/22/22 06:00 Water,Injection,Sterile 10 Ml Vial IJ 02/18/22 23:59 DIRECTED PRN PFSH Active Problems Active Problems: Problem Status Onset Code Loculated pleural effusion J90 ADHD F90.9 Panic disorder F41.0 Alcohol abuse F10.10 Depression F32.9 Hypertension I10 Smoker F17.200 Encounter for screening colonoscopy Z12.11 S/P colonoscopy ~04/28/18 Z98.890 Colorectal polyp detected on colonoscopy ~04/28/18 K63.5 Retinal hemorrhage H35.60 Non-small cell carcinoma of lung C34.90 Emphysema lung J43.9 COPD (chronic obstructive pulmonary disease) J44.9 Personal history of nicotine dependence Z87.891 Pleural effusion J90 Medical History Medical History Afib BPH (benign prostatic hyperplasia) Cataract Coronary artery disease COVID-19 Elevated serum creatinine Hearing loss, bilateral Nicotine dependence, cigarettes, uncomplicated Oral pharyngeal candidiasis Pain in right wrist Positive DEJON (antinuclear antibody) 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 Gutiérrez 03/2021 lung CA RH Tobacco Smoking/Tobacco Use Status: Former Tobacco Use Alcohol Alcohol Intake: former Substance Use Substance use: Rarely Substance use type: marijuana Vital Signs and Lab Results Vital Signs Most Recent Vital Signs in EMR: Most Recent Vital Signs Temp Pulse Resp BP Pulse Ox 36.4 C L 61 16 133/96 H 99 01/22/22 11:15 01/22/22 11:15 01/22/22 11:15 01/22/22 11:15 01/22/22 11:15 Lab Results Blood Type / Crossmatch: No Data to Display Complete Blood Count: No Data to Display Complete Metabolic Panel: Creatinine 1.2 mg/dL (0.70-1.30) 01/03/22 13:05 Est GFR (CKD-EPI 2020) 64.25 (mL/min/1.73m2) 01/03/22 13:05 Liver Function Panel: No Data to Display Coagulation Panel: No Data to Display Cardiac Panel: No Data to Display Arterial Blood Gas: No Data to Display Venous Blood Gas: No Data to Display Pancreas Panel: No Data to Display Thyroid Panel: No Data to Display Infectious Disease: No Data to Display Blood Cultures: No Data to Display Toxicology Panel: No Data to Display Imaging and Studies Imaging and Studies Study information below may be from another EMR and interpreted by another provider. Please see original notes in EMR for more complete details. EKG Summary: 09/15/2021: Exam: Resting ECG Reason for Exam: afib Patient Location: O HR:87 bpm ECG Measurements Heart Rate 87 AXIS WA 149 P 78 QRSd 99 QRS 58 QT 324 T14 QTc 390 Conclusion Sinus rhythm with premature atrial contractions LVH voltage Late transition Echocardiogram Summary: 09/08/2021: EXAM: Comprehensive 2D, Doppler, and color-flow Echocardiogram Patient Location: Out-Patient Sales And Merchandising Associate: Jocelyn Rincon RDCS (AE) Indications: Atrial Fibrillation Other Information Study Quality: Adequate Conclusion Normal left ventricular wall thickness and chamber size. Estimated ejection fraction is 60%. Wall motion is normal Normal right ventricular size and systolic function Both atria are normal in size There is no structural or hemodynamically significant valvular disease Mildly dilated ascending aorta measuring 3.66 cm Estimated right ventricular systolic pressure is normal at 28 mmHg Pulmonary Function Summary: 09/01/21: Pulmonary Function Test Result Requesting Provider Tami Paz Indications: COPD Interpretation Spirometry: Although the FEV1/FVC ratio is normal, mild airflow limitation may be suggested by the flow volume loop and volume time curve. There is no significant bronchodilator response. Lung Volumes: Normal lung volumes Diffusion Capacity: Normal diffusion Airway Pressure: Normal airways resistance. Impression Likely mild airflow obstruction. Clinical Correlation therefore is recommended Anesthesia Assessment and Plan Anesthesia History Personal History: No History of Anesthesia Complications Family History: No Family History of Anesthesia Complications Exercise Tolerance Exercise Tolerance: Metabolic Equivalents>4 Cardiac & Pulmonary Exam Cardiac Exam: Normal S1/S2 Heart Sounds Pulmonary Exam: Clear Bilateral Breath Sounds Implantable Cardiac Device Does patient have a Pacemaker or an ICD?: No Airway Exam Known Difficult Airway: No Mallampati Class: 2 Mouth Opening: Normal (> 3cm) Thyromental Distance: Greater than 3 cm Facial Hair: Full Ocampo (partial) Neck Range of Motion: Full ROM Neck Circumference: Normal Teeth Condition: Edentulous ASA Classification ASA Score: ASA 3 Emergency Case?: No NPO Status NPO Status: NPO Clears >2 hours, Solids >8 hours Anesthesia Plan Resuscitation Status: Full Code Anesthesia Technique: General Anesthesia Airway Planned: Natural Airway Monitors Used: Standard Monitors
[2022-01-22 11:34] VITALS: BMI 25.0
--- NOTE | 2022-01-22 12:00 | BOWEL_PTH ---
PATIENT: Rajan Marquez LOC: [facility] U#:[id number] AGE/SX: 71/M ROOM: RE01/22/[address]: Marta Mejia MD : 1950 BED: DIS: 01/22/2022 SPEC #: [id number] RECD: 01/22/22 13:04 STATUS: STACIA RANGEL #: [id number] ARIANE: 01/22/22 12:[address]: Marta Mejia DEPT: Surgical Specimen RECD BY: Elaine Paul ENTERED: 01/22/22 13:05 SP TYPE: Bowel OTHR DR: Tami Olivia Tissues: 1 - BIOPSY BOWEL 2 - BIOPSY BOWEL Procedures: GROSS AND MICRO LEVEL 4 Comments: [id number]
[2022-01-22 12:21] VITALS: BP 90/60; PULSE 60; RESP 16; TEMP 36.3; O2SAT 95
[2022-01-22 12:45] VITALS: BP 141/72; PULSE 50; RESP 16; TEMP 36.3; O2SAT 98
--- NOTE | 2022-01-22 13:18 | W.ANESPOSTOP ---
Postoperative Evaluation Date, Time and Location Date Performed: 01/22/22 Time Performed: 12:22 Patient Location: Day Surgery Unit Vital Signs Most Recent Imported Vital Signs: Most Recent Vital Signs Temp Pulse Resp BP Pulse Ox 36.3 C L 60 16 90/60 L 95 01/22/22 12:21 01/22/22 12:21 01/22/22 12:21 01/22/22 12:21 01/22/22 12:21 Pain Score Most Recent Pain Score: Most Recent Pain Score Pain Level 0 01/22/22 12:21 Assessment Mental Status: Awake (Alert & Oriented to Patient Baseline) Airway and Respiratory Function: Patent airway with normal (patient baseline) respiratory exam Cardiovascular Function: Hemodynamically Stable Hydration Status: Adequately Hydrated Nausea & Vomiting: No Nausea or Vomiting Pain: Pt. Denies Any Pain Peripheral Nerve Block: Patient did not receive a nerve block
== END 2022-01-22 13:00 | disposition home or self-care (01) ==
PROVIDERS: PCP Nurse Practitioner Family; Visit Provider Surgery
PROC: 0DJD8ZZ Inspection of Lower Intestinal Tract, Via Natural or Artificial Opening Endoscopic (ICD-10-PCS; CPT 45378; principal; 2022-01-22 12:15)
DX: Z12.11 Encounter for screening for malignant neoplasm of colon (principal); K63.5 Polyp of colon; Z86.010 Personal history of colon polyps; K57.30 Diverticulosis of large intestine without perforation or abscess without bleeding
CPT/HCPCS: 45385; 88305

== ENCOUNTER 2022-02-05 01:42 | Outpatient (CLI) | payer MEDICARE, SELFPAY ==
--- NOTE | 2022-02-05 | DI.US_ITS ---
Exam(s) US THYROID EXAM: US THYROID CLINICAL HISTORY: RT THYROID NODULE E04.1, SEEN ON CT DONE AT [facility] 10/30/21. TECHNIQUE: Ultrasound thyroid performed using standard protocol. FINDINGS: ISTHMUS: 4 mm RIGHT LOBE: Size: 4.9 x 1.5 x 1.6 cm Echogenicity: Normal. Vascularity: Normal. Nodules: 12 millimeter colloid cyst mid right lobe. TR 1. LEFT LOBE: Size: 3.7 x 1.4 x 2 cm Echogenicity: Normal. Vascularity: Normal. Nodules: 12 millimeter spongiform nodule lower left lobe. TR 1. OTHER FINDINGS: None. IMPRESSION: No suspicious thyroid nodules. DATA REPOSITORY:
== END 2022-02-05 02:02 ==
LOC: DI 01:42
PROVIDERS: PCP Nurse Practitioner Family; Visit Provider Nurse Practitioner Family
DX: E04.1 Nontoxic single thyroid nodule (principal)
CPT/HCPCS: 76536

== ENCOUNTER → 2022-03-29 10:47 | Outpatient (BNVA) | payer MEDICARE, SELFPAY | PROVIDERS: PCP Nurse Practitioner Family; Visit Provider Internal Medicine Cardiovascular Disease | DX: I10 Essential (primary) hypertension; I48.92 Unspecified atrial flutter; J90 Pleural effusion, not elsewhere classified; Z79.01 Long term (current) use of anticoagulants | CPT/HCPCS: 93005; 99214 ==

== ENCOUNTER 2022-03-29 11:06 | Outpatient (CLI) | payer MEDICARE, SELFPAY ==
--- NOTE | 2022-03-29 11:00 | RT.EKG_ITS ---
APPROVED REPORT Exam: Resting ECG Reason for Exam: on amiodorone Patient Location: O HR:119 bpm ECG Measurements Heart Rate 119 AXIS AL [id number] P [id number] QRSd 104 QRS 65 QT 341 T 54 QTc 480 Conclusion Atrial flutter with 2:1 AV block...A-rate 245, V-rate> 99 Borderline low voltage, extremity leads...all extremity leads <0.6mV LVH with secondary repolarization abnormality...multi-LVH criteria, abnrm ST-T Borderline prolonged QT interval...QTc >475mS
== END 2022-03-29 11:07 | disposition home or self-care (01) ==
LOC: DI.CARD 11:07
PROVIDERS: PCP Nurse Practitioner Family; Visit Provider Internal Medicine Cardiovascular Disease
DX: I48.91 Unspecified atrial fibrillation (principal); R94.31 Abnormal electrocardiogram [ECG] [EKG]
CPT/HCPCS: 93010

== ENCOUNTER 2022-06-22 16:40 | Outpatient (REF) | payer MEDICARE, SELFPAY ==
--- NOTE | 2022-06-22 13:20 | SKI_PTH ---
PATIENT: Rajan Marquez LOC: [facility] U#:[id number] AGE/SX: 71/M ROOM: RE06/22/[address]: Mandeep Licona DO : 1950 BED: DIS: 06/22/2022 SPEC #: [id number] RECD: 06/25/22 11:37 STATUS: STACIA REQ #: [id number] ARIANE: 06/22/22 13:[address]: Mandeep Licona DEPT: Surgical Specimen RECD BY: Elaine Paul ENTERED: 06/25/22 11:38 SP TYPE: SKI OTHR DR: Tami Olivia Tissues: 1 - SKIN BIOPSY(SHAVE/PUNCH) Procedures: SKIN LEVEL 4 Comments: [id number]
== END 2022-06-22 16:41 | disposition home or self-care (01) ==
LOC: LBN 16:40
PROVIDERS: PCP Nurse Practitioner Family; Visit Provider Otolaryngology Otolaryngology/Facial Plastic Surgery
DX: D49.2 Neoplasm of unspecified behavior of bone, soft tissue, and skin (principal)
CPT/HCPCS: 88305

== ENCOUNTER 2022-06-26 08:46 | Outpatient (CLI) | payer MEDICARE, SELFPAY | END 2022-06-26 08:47 | disposition home or self-care (01) | LOC: ORDER INT 13:12 | PROVIDERS: PCP Nurse Practitioner Family; Referring Provider Nurse Practitioner Family; Visit Provider Internal Medicine Cardiovascular Disease | DX: J43.9 Emphysema, unspecified (principal); J90 Pleural effusion, not elsewhere classified; Z87.891 Personal history of nicotine dependence; Z98.890 Other specified postprocedural states | CPT/HCPCS: 99214 ==

== ENCOUNTER 2022-06-29 02:55 | Outpatient (CLI) | payer MEDICARE, SELFPAY ==
--- NOTE | 2022-06-29 15:12 | PFT_ITS ---
Date of service: 06/29/22 Time of Service: 14:25 Pulmonary Function Test Result Indications: COPD Note: 6 Minute Walk Test Distance walked:600 feet Desaturations: Desaturation to 86% at 4 minutes. Required 3LPM to maintain s aturation >87%. Heart rate changes: No significant changes with walking, patient tachycardic throughout (102-108) Recommendation: 3LPM required with exertion Josephine Sotomayor MD Pulmonary & Critical Care Medicine Clinical Correlation therefore is recommended.
== END 2022-06-29 02:56 | disposition home or self-care (01) ==
LOC: RT 02:56
PROVIDERS: PCP Nurse Practitioner Family; Visit Provider Physician Assistant Surgical
DX: J44.9 Chronic obstructive pulmonary disease, unspecified (principal)
CPT/HCPCS: 94618; 94762

== ENCOUNTER 2022-07-30 11:42 | Inpatient (IN) | payer MEDICARE, SELFPAY ==
[2022-07-30] VITALS (9 sets, daily range): BP systolic 97–133; BP diastolic 57–88; PULSE 93–107; RESP 8–17; TEMP 36.6–37.3; O2SAT 95–99
--- NOTE | 2022-07-30 12:15 | RT.EKG_ITS ---
APPROVED REPORT Exam: Resting ECG Reason for Exam: shortness of breath Patient Location: E HR:104 bpm ECG Measurements Heart Rate 104 AXIS LA 138 P 0 QRSd 120 QRS 110 QT 390 T -45 QTc 512 Conclusion Sinus tachycardia with irregular rate...V-rate 66-114, variation>10% Left atrial enlargement...P, P'>60mS, <-0.15mV V1 Nonspecific intraventricular conduction delay...QRSd >115mS, not LBBB/RBBB Anterior infarct, old...Q >40mS, abnormal ST-T, V2-V5
--- NOTE | 2022-07-30 12:15 | DI.CT_ITS ---
Exam(s) CT HEAD WO EXAM: CT HEAD WO CLINICAL HISTORY: dizziness. TECHNIQUE: Imaging Protocol: Axial computed tomography images with coronal and sagittal reformatted images were created and reviewed COMPARISON: No exams were available for comparison FINDINGS: Ventricles and Extra axial spaces: Normal in size and morphology for the patient's age. Hemorrhage: None. Cerebral parenchyma: There is no evidence of a an acute territorial infarct. There are areas of decr eased attenuation in the white matter consistent with small vessel ischemic disease. Midline shift: None. Brainstem/Cerebellum: Normal. Calvarium: Normal. Visualized Paranasal sinuses/Mastoids: Clear. Soft Tissues: Unremarkable. IMPRESSION: 1. No acute intracranial process. 2. Findings were discussed with the emergency department at 3:44 p.m. on 07/30/2022. RADIATION DOSE DELIVERED: 839.68mGy.cm Total DLP DATA REPOSITORY: All CT scans at this facility are submitted to the National Radiology Data Registry (NRDR) Dose Index Registry (DIR) with the [employer] ([employer]). RADIATION OPTIMIZATION: All CT scans at this facility use at least one of these dose optimization te chniques: automated exposure control; mA and/or kV adjustment per patient size (includes targeted exa ms where dose is matched to clinical indication); or iterative reconstruction.
[2022-07-30 12:23] LABS: Abs Immature Grans 0.02 10^3/uL (0.0-0.06); Absolute Basophil Count 0.03 10^3/uL (0.0-0.2); Absolute Eosinophil Count 0.06 10^3/uL (0.0-0.7); Absolute Lymphocyte Count 0.91 10^3/uL (1.2-3.4); Absolute Monocyte Count 0.66 10^3/uL (0.1-0.8); Absolute Neutrophil Count 6.05 10^3/uL (1.2-6.7); Basophils % 0.4; Eosinophils % 0.8; HCT 46.6 % (40.0-50.0); HGB 14.4 g/dL (13.5-17.5); Immature Grans % 0.3; Lymphocytes % 11.8; MCH 27.4 pg (27.0-33.0); MCHC 30.9 % (32.0-36.0); MCV 89 fL (80-95); MPV 9.3 fL (8.0-11.0); Monocytes % 8.5; Neutrophils % 78.2; Platelet Count 238 10^3/uL (130-400); RBC 5.26 10^6/uL (4.36-5.78); RDW 16.1 % (11.8-14.1); WBC 7.73 10^3/uL (4.4-10.8)
--- NOTE | 2022-07-30 12:24 | ED.GENADUL_ITS ---
Discharge Plan Disposition Patient Disposition: Admit to [facility] Discharge Details Clinical Impression: Pleural effusion, Weakness, Hypoxemia Primary Care Provider: Tami Olivia ED Provider: Yovany Recio Home Meds and New Rx's Prescriptions: No Action albuterol sulfate 0.63 mg/3 mL solution for nebulization 0.63 mg inhalation QID PRN (Reason: shortness of breath or wheezing) Qty: 90 12RF Spiriva Respimat 2.5 mcg/actuation mist 2 inh inhalation QAM Qty: 12 3RF amiodarone 200 mg tablet 200 mg PO DAILY calcium carbonate-vitamin D3 600 mg-20 mcg (800 unit) tablet 1 tab PO DAILY cholecalciferol (vitamin D3) 25 mcg (1,000 unit) capsule 25 mcg PO DAILY acetaminophen [Tylenol Arthritis Pain] 650 mg tablet extended release 1,300 mg PO DAILY metoprolol succinate 50 mg tablet extended release 24 hr 100 mg PO DAILY Qty: 90 3RF albuterol sulfate [ProAir HFA] 90 mcg/actuation HFA aerosol inhaler 2 puff inhalation Q6H PRN bupropion HCl 150 mg tablet sustained-release 12 hr 150 mg PO QAM tamsulosin 0.4 mg capsule 0.4 mg PO DAILY hydroxychloroquine 200 mg tablet 200 mg PO DAILY ferrous sulfate 28 mg iron Tablet 28 mg PO DAILY Spiriva Respimat 2.5 mcg/actuation mist INHALATION Xarelto 20 mg tablet 1 tab PO DAILY sildenafil 50 mg tablet 50 tab PO PRN PRN Patient Comments: TAKE 1/2 TO 1 TABLET BY MOUTH 30 MINUTES PRIOR TO SEXUAL ACTIVITY NEEDED. MAXIMUM DAILY DOSE 2 Medical Decision Making 71-year-old gentleman with history of COPD on home O2 at 3 L nasal cannula, previous squamous cell carcinoma of the lung status post left upper lobe lobectomy at [facility] in 03/2021, loculated pleural effusion status post left thoracotomy and total pulmonary decortication on 05/18/2022, atrial flutter on Xarelto, former smoker, hypertension, hyperlipidemia who is now presenting with weakness. Differential is broad. Certainly this could be from deconditioning from patient's multiple recurrent illnesses and recent hospitalization for large surgical procedure. Other reversible causes remain in the differential. We will check CBC to look for anemia. We will get broad labs look for electrolyte or metabolic cause of the patient's symptoms. I do not think that there is a neurologic cause of the patient's symptoms given the duration of his symptoms and no focal neurologic deficits but given his history of cancer will get CT head to rule out large space occupying lesion in the brain. No chest pain or shortness of breath but will check EKG and cardiac enzymes to look for cardiac causes of the patient's weakness. Will get chest x-ray to rule out pneumonia or pneumothorax. Doubt other cause of the patient's symptoms at present. Will await initial testing and reevaluate. Medical Records Medical records reviewed: Yes I reviewed the patient's medical records. Imaging Data Radiologic Study: Attestation: I personally reviewed and interpreted this imaging study as follows: Imaging: CT Scan Radiologist's impression: ct chest IMPRESSION: 1. No evidence of a pulmonary embolism or thoracic aortic aneurysm. 2. New moderately large right pleural effusion and subjacent infiltrate which may represent atelectasis or pneumonia. 3. Persistent in capsulated left pleural fluid collection.? There is now air within the fluid collection.? Please correlate with patient's procedural/surgical history. 4. New left axillary adenopathy.? Metastatic disease should be considered. 5. Cardiomegaly and findings suggestive of heart right heart failure. 6. Findings were discussed with Dr. Hue Recio at 3:55 p.m. on 07/30/2022. Radiologic Study #2: Attestation: I personally reviewed and interpreted this imaging study as follows: Imaging: CT Scan My impression: ct head unremarkable. Radiologist's impression: ct head unremarkbale Lab Data Lab results reviewed: Yes I reviewed the patient's lab results. Labs: Labs grossly unremarkable ECG Data Attestation: I personally reviewed and interpreted this ECG (s) as follows: (Atrial fibrillation and otherwise unremarkable EKG) Prior ECG tracings: available for review HPI General Date/Time Provider Initiated Documentation: 07/30/22 11:55 . Limitations to Documentation: no limitations . Information obtained by: patient and EMS . HPI Narrative: This is a 71-year-old gentleman with history of COPD on home O2 at 3 L nasal cannula, previous squamous cell carcinoma of the lung status post left upper lobe lobectomy at [facility] in 03/2021, loculated pleural effusion status post left thoracotomy and total pulmonary decortication on 05/18/2022, atrial flutter on Xarelto, former smoker, hypertension, hyperlipidemia who is now presenting with weakness. Says has been getting worse over the last 1 to 2 months and really ever since he had the procedures done at [facility]. Apparently does not feel that his provider at home [facility] can take care of him adequately on his own. He says he always feels short of breath and says this has not gotten worse since his procedure and has actually improved. Says he feels very shaky and weak when standing. No chest pain or new shortness of breath. No abdominal pain, nausea, vomiting. No diarrhea or constipation or any black or bloody stools. Denying any other complaints. Related Data Home Medications Medication Instructions Recorded Confirmed albuterol sulfate 90 mcg/actuation 2 puff inhalation Q6H PRN 05/24/21 07/27/22 aerosol inhaler (ProAir HFA) bupropion HCl 150 mg tablet,12 hr 150 mg PO QAM 05/24/21 07/30/22 sustained-release tamsulosin 0.4 mg capsule 0.4 mg PO DAILY 05/24/21 07/30/22 rivaroxaban 20 mg tablet (Xarelto) 1 tab PO DAILY 12/11/21 07/30/22 sildenafil 50 mg tablet 50 tab PO PRN PRN 01/19/22 07/27/22 hydroxychloroquine 200 mg tablet 200 mg PO DAILY 02/06/22 07/30/22 acetaminophen 650 mg 1,300 mg PO DAILY 03/29/22 07/27/22 tablet,extended release (Tylenol Arthritis Pain) amiodarone 200 mg tablet 200 mg PO DAILY 03/29/22 07/30/22 calcium carbonate 600 mg-vitamin 1 tab PO DAILY 03/29/22 07/27/22 D3 20 mcg (800 unit) tablet cholecalciferol (vitamin D3) 25 25 mcg PO DAILY 03/29/22 07/30/22 mcg (1,000 unit) capsule albuterol sulfate 0.63 mg/3 mL 0.63 mg (3 mL) inhalation QID PRN 06/26/22 07/27/22 solution for nebulization shortness of breath or wheezing #90 mL tiotropium bromide 2.5 2 inh inhalation QAM #12 grams 06/27/22 07/27/22 mcg/actuation mist for inhalation (Spiriva Respimat) metoprolol succinate 50 mg 100 mg PO DAILY #90 tabs 07/27/22 07/30/22 tablet,extended release 24 hr ferrous sulfate 28 mg iron tablet 28 mg PO DAILY 07/30/22 07/30/22 tiotropium bromide 2.5 inhalation 07/30/22 07/30/22 mcg/actuation mist for inhalation (Spiriva Respimat) Previous Rx's Medication Instructions Recorded albuterol sulfate 0.63 mg/3 mL 0.63 mg (3 mL) inhalation QID PRN 06/26/22 solution for nebulization shortness of breath or wheezing #90 mL tiotropium bromide 2.5 2 inh inhalation QAM #12 grams 06/27/22 mcg/actuation mist for inhalation (Spiriva Respimat) metoprolol succinate 50 mg 100 mg PO DAILY #90 tabs 07/27/22 tablet,extended release 24 hr Allergies Allergy/AdvReac Type Severity Reaction Status Date / Time seasonal Allergy Uncoded 07/30/22 12:03 General Stated Complaint: GenMedical NICCI: 3 Review of Systems Constitutional Constitutional: Denies chills, Denies fever(s), Denies headache(s) and Reports weakness Eyes Eyes: Denies change in vision ENT Ears, Nose, Mouth, and Throat: Denies headache(s) and Denies odynophagia Cardiovascular Cardiovascular: Denies chest pain and Denies dyspnea Respiratory Respiratory: Denies dyspnea Gastrointestinal Gastrointestinal: Denies abdominal pain, Denies diarrhea, Denies nausea, Denies odynophagia and Denies vomiting Genitourinary Genitourinary: Denies dysuria Musculoskeletal Musculoskeletal: Denies myalgias Integumentary/Breasts Skin/Breast: Denies changing lesions Neurologic Neurologic: Denies behavioral changes, Denies headache(s) and Reports weakness Psychiatric Psychiatric: Denies behavioral changes Endocrine Endocrine: Denies heat intolerance Hematologic/Lymphatic Hematologic/Lymphatic: Denies lymphadenopathy PFSH All Active Problems (Updated 07/30/22 @ 16:25 by Yovany Recio MD) Pleural effusion (Acute) Weakness (Acute) Hypoxemia (Acute) Alcohol use (Acute) Weakness (Acute) Caregiver stress (Acute) History of lung cancer (Acute) Supplemental oxygen dependent (Acute) Frequent falls (Acute) Advanced care planning/counseling discussion (Acute) Palliative care encounter (Acute) Tachycardia (Acute) Dyspnea and respiratory abnormalities (Acute) S/P thoracotomy (Acute) Atrial flutter (Acute) Loculated pleural effusion (Acute) ADHD (Chronic) Panic disorder (Chronic) Alcohol abuse (Chronic) Depression (Chronic) Hypertension (Chronic) Smoker (Acute) Encounter for screening colonoscopy (Acute) S/P colonoscopy (Acute ~04/28/18) Colorectal polyp detected on colonoscopy (Acute ~04/28/18) Tubular adenoma Retinal hemorrhage (Acute) Emphysema lung (Acute) COPD (chronic obstructive pulmonary disease) (Chronic) Personal history of nicotine dependence (Acute) Pleural effusion (Acute) Medical History Afib Anemia BPH (benign prostatic hyperplasia) Carcinoma of left lung Cataract Chronic pain of right wrist Coronary artery disease COVID-19 Elevated antinuclear antibody (DEJON) level Elevated PSA Elevated serum creatinine Erectile dysfunction Essential tremor Fibrothorax Hearing loss Hearing loss, bilateral History of depression History of elevated antinuclear antibody (DEJON) Long-term use of high-risk medication Lung cancer Nicotine dependence, cigarettes, uncomplicated Non-small cell carcinoma of lung Oral pharyngeal candidiasis Pain in right wrist Pleural effusion, left Positive DEJON (antinuclear antibody) 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) Skin lesion of scalp Squamous cell carcinoma Squamous cell carcinoma of left lung Stool guaiac positive IFOB Thyroid nodule Tobacco dependence Tubular adenoma Tubular adenoma of colon Unintentional weight loss Surgical History History of appendectomy History of colonoscopy (~01/2022) S/P partial lobectomy of lung [facility]ACEL[facility]adi Gutiérrez 03/2021 lung [facility] Social History Smoking/Tobacco Use Status: Former Tobacco Use Quit Date: 12/09/21 Smoking risk assessment performed?: Yes Alcohol Intake: former Drug use: Rarely Substance use type: marijuana Do you feel safe at home: Yes Do you feel safe in your relationship?: Yes Exam Const General: cooperative Nutritional Appearance: average body habitus Orientation: alert, awake and oriented x3 HENMT Head: normal to inspection Ears: external ears normal Mouth: moist mucous membranes Eyes Pupils: PERRL EOM: EOM intact bilaterally and No nystagmus Neck Neck: full ROM and no tracheal deviation Chest Chest: normal inspection of the chest Resp Auscultation: clear to auscultation bilaterally Cardio Rate: regular rate Rhythm: regular rhythm GI Inspection: normal to inspection Palpation: soft, no guarding, not rigid and nontender Back/Spine/Pelvis Back: No no CVA tenderness Thoracic/Lumbar Spine: thoracic and lumbar spine normal to inspection Skin General skin exam: no rashes or lesions noted Neuro General: patient alert, patient awake and patient oriented x3 Cranial Nerves: CN's II-XI intact bilaterally, PERRL and no nystagmus Cognition: normal cognition Motor: muscle tone normal throughout and strength 5/5 throughout Sensory Exam: no sensory deficits noted Extrem General: normal to inspection Course Reevaluation(s) Time: 16:23 Reevaluation: CT head unremarkable and labs and EKG grossly unremarkable. Has a new large right pleural effusion. No hypoxemia that is new at rest. Still on his home 3 L nasal cannula. I had physical therapy evaluate him due to his severe weakness and he has a 1 person assist and cannot go home due to his weakness as he does not have any supports at home. During ambulation it was also noted that he desatted into the 60s but improved on 6 L nasal cannula and then when he was back in bed and resting there was no desaturations. Suspect this may be related to the new right pleural effusion. No role for thoracentesis at this time and certainly suspect that some of this could be due to malignancy. Also has some left axillary lymph nodes concerning for malignancy. Has a small amount of air seen on the left but could be from his surgical procedure chest 2 months ago at [facility]. Do not think that this represents pneumothorax and certainly small enough that it does not need any emergent intervention. Given the significant hypoxemia with ambulation and new right pleural effusion will admit to the hospitalist service for further treatment and monitoring. Dr. vogel accepting. Vital Signs Vital signs: Vital Signs Temperature 36.6 C 07/30/22 11:57 Pulse 94 H 07/30/22 11:57 Respiratory Rate 8 L 07/30/22 11:57 Blood Pressure 133/79 07/30/22 11:57 Pulse Oximetry 96 07/30/22 11:57 Temperature 36.6 C 07/30/22 11:57 Temperature Source Oral 07/30/22 11:57 Pulse 94 H 07/30/22 11:57 Respiratory Rate 8 L 07/30/22 11:57 Respiratory Effort Normal, Incrsd Work of Breathing 07/30/22 12:08 Blood Pressure 133/79 07/30/22 11:57 Blood Pressure Position Supine 07/30/22 11:57 Pulse Oximetry 96 07/30/22 12:08 Oxygen Delivery Method Nasal Cannula 07/30/22 12:08 Oxygen Flow Rate 3 07/30/22 12:08 Pain Level 10 07/30/22 11:57 Lab/Test Results Lab/Test Results: Laboratory Tests Range/Units 07/30/22 07/30/22 07/30/22 12:00 12:00 12:00 WBC (4.4-10.8) 10^3/uL 7.73 RBC (4.36-5.78) 10^6/uL 5.26 Hgb (13.5-17.5) g/dL 14.4 Hct (40.0-50.0) % 46.6 MCV (80-95) fL 89 MCH (27.0-33.0) pg 27.4 MCHC (32.0-36.0) % 30.9 L RDW (11.8-14.1) % 16.1 H Plt Count (130-400) 10^3/uL 238 MPV (8.0-11.0) fL 9.3 Immature Gran % 0.3 Neutrophils % 78.2 Lymphocytes % 11.8 Monocytes % 8.5 Eosinophils % 0.8 Basophils % 0.4 Nucleated RBC % (0.0-0.3) % 0.0 Absolute Neutrophils (1.2-6.7) 10^3/uL 6.05 Absolute Lymphocytes (1.2-3.4) 10^3/uL 0.91 L Absolute Monocytes (0.1-0.8) 10^3/uL 0.66 Absolute Eosinophils (0.0-0.7) 10^3/uL 0.06 Absolute Basophils (0.0-0.2) 10^3/uL 0.03 D-Dimer Cancelled Sodium (136-145) mmol/L 136 Potassium (3.5-5.1) mmol/L 3.8 Chloride (98-107) mmol/L 99 Carbon Dioxide (21.0-32.0) mmol/L 29.2 Anion Gap (3-11) mmol/L 7.8 BUN (7-18) mg/dL 19 H Creatinine (0.70-1.30) mg/dL 1.0 Est GFR (CKD-EPI 2020) (mL/min/1.73m2) 79.97 Glucose (74-106) mg/dL 91 Calcium (8.5-10.1) mg/dL 9.4 Phosphorus (2.6-4.7) mg/dL Magnesium (1.8-2.4) mg/dL 1.9 Total Bilirubin (0.2-1.0) mg/dL 0.9 AST (15-37) U/L 50 H ALT (16-63) U/L 93 H Alkaline Phosphatase (46-116) U/L 97 Creatine Kinase Cancelled Troponin I (<or=60) ng/L < 50 Total Protein (6.4-8.2) g/dL 7.7 Albumin (3.4-5.0) g/dL 3.5 TSH (0.36-3.74) uIU/mL Free T4 (0.76-1.46) ng/dL Add-On Test Request Range/Units 07/30/22 07/30/22 07/30/22 12:00 12:00 12:00 WBC (4.4-10.8) 10^3/uL RBC (4.36-5.78) 10^6/uL Hgb (13.5-17.5) g/dL Hct (40.0-50.0) % MCV (80-95) fL MCH (27.0-33.0) pg MCHC (32.0-36.0) % RDW (11.8-14.1) % Plt Count (130-400) 10^3/uL MPV (8.0-11.0) fL Immature Gran % Neutrophils % Lymphocytes % Monocytes % Eosinophils % Basophils % Nucleated RBC % (0.0-0.3) % Absolute Neutrophils (1.2-6.7) 10^3/uL Absolute Lymphocytes (1.2-3.4) 10^3/uL Absolute Monocytes (0.1-0.8) 10^3/uL Absolute Eosinophils (0.0-0.7) 10^3/uL Absolute Basophils (0.0-0.2) 10^3/uL D-Dimer Sodium (136-145) mmol/L Potassium (3.5-5.1) mmol/L Chloride (98-107) mmol/L Carbon Dioxide (21.0-32.0) mmol/L Anion Gap (3-11) mmol/L BUN (7-18) mg/dL Creatinine (0.70-1.30) mg/dL Est GFR (CKD-EPI 2020) (mL/min/1.73m2) Glucose (74-106) mg/dL Calcium (8.5-10.1) mg/dL Phosphorus (2.6-4.7) mg/dL 2.5 L Magnesium (1.8-2.4) mg/dL Total Bilirubin (0.2-1.0) mg/dL AST (15-37) U/L ALT (16-63) U/L Alkaline Phosphatase (46-116) U/L Creatine Kinase Troponin I (<or=60) ng/L Total Protein (6.4-8.2) g/dL Albumin (3.4-5.0) g/dL TSH (0.36-3.74) uIU/mL 6.02 H Free T4 (0.76-1.46) ng/dL 1.30 Add-On Test Request DONE DONE Range/Units 07/30/22 07/30/22 12:54 13:23 WBC (4.4-10.8) 10^3/uL RBC (4.36-5.78) 10^6/uL Hgb (13.5-17.5) g/dL Hct (40.0-50.0) % MCV (80-95) fL MCH (27.0-33.0) pg MCHC (32.0-36.0) % RDW (11.8-14.1) % Plt Count (130-400) 10^3/uL MPV (8.0-11.0) fL Immature Gran % Neutrophils % Lymphocytes % Monocytes % Eosinophils % Basophils % Nucleated RBC % (0.0-0.3) % Absolute Neutrophils (1.2-6.7) 10^3/uL Absolute Lymphocytes (1.2-3.4) 10^3/uL Absolute Monocytes (0.1-0.8) 10^3/uL Absolute Eosinophils (0.0-0.7) 10^3/uL Absolute Basophils (0.0-0.2) 10^3/uL D-Dimer 1300 H Sodium (136-145) mmol/L Potassium (3.5-5.1) mmol/L Chloride (98-107) mmol/L Carbon Dioxide (21.0-32.0) mmol/L Anion Gap (3-11) mmol/L BUN (7-18) mg/dL Creatinine (0.70-1.30) mg/dL Est GFR (CKD-EPI 2020) (mL/min/1.73m2) Glucose (74-106) mg/dL Calcium (8.5-10.1) mg/dL Phosphorus (2.6-4.7) mg/dL Magnesium (1.8-2.4) mg/dL Total Bilirubin (0.2-1.0) mg/dL AST (15-37) U/L ALT (16-63) U/L Alkaline Phosphatase (46-116) U/L Creatine Kinase Cancelled Troponin I (<or=60) ng/L Total Protein (6.4-8.2) g/dL Albumin (3.4-5.0) g/dL TSH (0.36-3.74) uIU/mL Free T4 (0.76-1.46) ng/dL Add-On Test Request
[2022-07-30 12:46] LABS: ALT 93 U/L (16-63); AST 50 U/L (15-37); Albumin 3.5 g/dL (3.4-5.0); Alkaline Phosphatase 97 U/L (46-116); Anion Gap 7.8 mmol/L (3-11); BUN 19 mg/dL (7-18); Bilirubin, Total 0.9 mg/dL (0.2-1.0); CO2 29.2 mmol/L (21.0-32.0); Calcium 9.4 mg/dL (8.5-10.1); Chloride 99 mmol/L (98-107); Estimated GFR 79.97 (mL/min/1.73m2); Glucose 91 mg/dL (74-106); Magnesium 1.9 mg/dL (1.8-2.4); Potassium 3.8 mmol/L (3.5-5.1); Sodium 136 mmol/L (136-145); Total Protein 7.7 g/dL (6.4-8.2); Troponin I < 50 ng/L (<or=60)
[2022-07-30 13:29] LABS: D-Dimer 1300 ng/mlFEU (<500)
--- NOTE | 2022-07-30 13:30 | DI.CT_ITS ---
Exam(s) CT CHEST PE CTA EXAM: CT CHEST PE CTA CLINICAL HISTORY: shortness of breath.pe suspected, positive d dimer. TECHNIQUE: Imaging Protocol: Axial CT angiography was performed with multi-slice acquisition and mu lti-planar and/or 3D reconstructions. CONTRAST MATERIAL: Intravenous: Omnipaque 350 contrast volume:62 mL COMPARISON: CT CT CHEST W from 01/03/2022 FINDINGS: Tracheobronchial tree: Patent where visualized. The patient appears to have undergone a left lobectom y. Pulmonary parenchyma: No consolidation or dominant measurable mass. No architectural distortion. Sinc e the prior examination, there has developed a moderately large right pleural effusion. There is a s ubjacent infiltrate in the right lower lobe which may represent atelectasis or pneumonia. In the lef t lung, there is again seen a pleural effusion which should be is in capsulated. There is now air-fl uid level in the left loculated fluid collection. The left fluid collection has shown some decrease in size compared to the prior examination. Atelectasis or pneumonia is seen in the left lung. Pulmonary Arteries: No evidence of filling defect to suggest pulmonary emboli. Mediastinum and Jana: No dominant adenopathy or fluid collection. The esophagus is unremarkable. Lymph nodes: There now enlarged left supraclavicular and axillary lymph nodes. The largest lymph nod e measures 2.4 cm. Visualized thyroid gland: Unremarkable. Pleura: No right pneumothorax. Heart: Cardiomegaly. No coronary artery calcifications are seen. No pericardial effusion. Aorta: Thoracic aorta non-dilated. The thoracic aorta is not well opacified for evaluation for dissec tion. Atherosclerosis is present. Upper abdomen: There is contrast seen within the IVC and hepatic veins. This can be seen with right heart failure. Soft tissues: Unremarkable. Bones: Within normal limits for the patient's age.Postsurgical changes are seen in the left ribs. IMPRESSION: 1. No evidence of a pulmonary embolism or thoracic aortic aneurysm. 2. New moderately large right pleural effusion and subjacent infiltrate which may represent atelectas is or pneumonia. 3. Persistent in capsulated left pleural fluid collection. There is now air within the fluid collect ion. Please correlate with patient's procedural/surgical history. 4. New left axillary adenopathy. Metastatic disease should be considered. 5. Cardiomegaly and findings suggestive of heart right heart failure. 6. Findings were discussed with Dr. Hue Recio at 3:55 p.m. on 07/30/2022. RADIATION DOSE DELIVERED: 530.32mGy.cm Total DLP DATA REPOSITORY: All CT scans at this facility are submitted to the National Radiology Data Registry (NRDR) Dose Index Registry (DIR) with the [employer] ([employer]). RADIATION OPTIMIZATION: All CT scans at this facility use at least one of these dose optimization te chniques: automated exposure control; mA and/or kV adjustment per patient size (includes targeted exa ms where dose is matched to clinical indication); or iterative reconstruction.
[2022-07-30 13:41] LABS: Lab Add On Test DONE
[2022-07-30 14:08] LABS: PHOSPHORUS 2.5 mg/dL (2.6-4.7); TSH (W/Ref FT4) 6.02 uIU/mL (0.36-3.74)
[2022-07-30] MEDS: Omnipaque 350 MG/ML 100 ML BTL IJ (15:23)
[2022-07-30] MEDS: Normal Saline - Diluent 50 ML VIAL IJ (15:24)
--- NOTE | 2022-07-30 16:30 | NUR.NOTE ---
Physical Therapy and this tech had pt up walking. pt dropped to 78% on 3L. pt was bumped up to 6L by RN. pt went back up to stating at 96%. Nursing Note:
--- NOTE | 2022-07-30 16:38 | W.PM.HP.N ---
Date of service: 07/30/22 Time of Service: 17:43 Assessment and Plan Assessment and plan (1) Pleural effusion: Status: Acute Assessment and plan: Dr Sotomayor, pulmonary/journeyman pipefitter, consulted and performed bedside POCUS exam. Decreased EF noted. Elevated BNP. Likely a transudate that is secondary to heart failure. Diuresing with lasix. Possible thoracentesis on Thurs if necessary. Formal echocardiogram when available. (2) Caregiver stress: Status: Acute Assessment and plan: He does not feel that his provider at home Eleaonr can take care of him adequately on his own. This is d/t his progressive weakness, shortness of air. Care managment will be involved and we will be working with him on options of care at time of d/c. (3) Atrial flutter: Status: Acute Assessment and plan: Holding Xarelto in anticipation of a possible thoracentesis on Thurs. Cont metoprolol for rate control. (4) COVID-19: Assessment and plan: H/O Covid in May of this year. (5) Non-small cell carcinoma of lung: Assessment and plan: S/P left upper lobe lobectomy. 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 Holding currently d/t QTc prolongation on admission CT. Evaluate QT on telemetry and restart if appropriate. (7) Trapped lung: Status: Acute Assessment and plan: Secondary to mechanical decortication and pleurodesis in May of this year at [facility]. Pulmonary consulted, Dr Sotomayor, and mentions he now has hydropneumothorax that is of little significance. History of Present Illness History of Present Illness Chief Complaint: Weakness Narrative: This is a 71 yo male with a PMH of stage IA3 ARACELI NSCLC, s/p ARACELI lobectomy at [facility] 03/2021, COVID then hospitalized in May at [facility] with loculated L pleural effusion and underwent L thoracotomy and tot. pulmonary decortication, aflutter on Xarelto, HTN, HLD, prev. tobacco abuse disorder. He states progressive weakness since decortication in May. Worsening shortness of air. Denied CP/palpitations, N/V/abd pain, F/C. ED evaluation showed a normal WBC count and Hgb normal. Lytes normal. Creatinine 1.0. CT chest: 1. No evidence of a pulmonary embolism or thoracic aortic aneurysm. 2. New moderately large right pleural effusion and subjacent infiltrate which may represent atelectasis or pneumonia. 3. Persistent in capsulated left pleural fluid collection.? There is now air within the fluid collection.? Please correlate with patient's procedural/surgical history. 4. New left axillary adenopathy.? Metastatic disease should be considered. 5. Cardiomegaly and findings suggestive of heart right heart failure. Admitted for further workup and pulmonary medicine consult. [facility] All Active Problems (Updated 07/31/22 @ 07:01 by Josephine Sotomayor MD) Trapped lung (Acute) Respiratory failure with hypoxia (Acute) Pleural effusion (Acute) Weakness (Acute) Hypoxemia (Acute) Alcohol use (Acute) Weakness (Acute) Caregiver stress (Acute) History of lung cancer (Acute) Supplemental oxygen dependent (Acute) Frequent falls (Acute) Advanced care planning/counseling discussion (Acute) Palliative care encounter (Acute) Tachycardia (Acute) Dyspnea and respiratory abnormalities (Acute) S/P thoracotomy (Acute) Atrial flutter (Acute) Loculated pleural effusion (Acute) ADHD (Chronic) Panic disorder (Chronic) Alcohol abuse (Chronic) Depression (Chronic) Hypertension (Chronic) Smoker (Acute) Encounter for screening colonoscopy (Acute) S/P colonoscopy (Acute ~04/28/18) Colorectal polyp detected on colonoscopy (Acute ~04/28/18) Tubular adenoma Retinal hemorrhage (Acute) Emphysema lung (Acute) COPD (chronic obstructive pulmonary disease) (Chronic) Personal history of nicotine dependence (Acute) Pleural effusion (Acute) Medical History Afib Anemia BPH (benign prostatic hyperplasia) Carcinoma of left lung Cataract Chronic pain of right wrist Coronary artery disease COVID-19 Elevated antinuclear antibody (DEJON) level Elevated PSA Elevated serum creatinine Erectile dysfunction Essential tremor Fibrothorax Hearing loss Hearing loss, bilateral History of depression History of elevated antinuclear antibody (DEJON) Long-term use of high-risk medication Lung cancer Nicotine dependence, cigarettes, uncomplicated Non-small cell carcinoma of lung Oral pharyngeal candidiasis Pain in right wrist Pleural effusion, left Positive DEJON (antinuclear antibody) 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 Gutiérrez 03/2021 lung CA RH Social History Smoking/Tobacco Use Status: Former Tobacco Use Quit Date: 12/09/21 Smoking risk assessment performed?: Yes Alcohol Intake: former Drug use: Rarely Substance use type: marijuana Do you feel safe at home: Yes Do you feel safe in your relationship?: Yes Meds Allergies and Home Medications Allergies Allergy/AdvReac Type Severity Reaction Status Date / Time seasonal Allergy Uncoded 07/30/22 12:03 Home Medications Medication Instructions Recorded Confirmed Type albuterol sulfate 90 mcg/actuation 2 puff inhalation Q6H PRN 05/24/21 07/27/22 History aerosol inhaler (ProAir HFA) bupropion HCl 150 mg tablet,12 hr 150 mg PO QAM 05/24/21 07/30/22 History sustained-release tamsulosin 0.4 mg capsule 0.4 mg PO DAILY 05/24/21 07/30/22 History rivaroxaban 20 mg tablet (Xarelto) 1 tab PO DAILY 12/11/21 07/30/22 History sildenafil 50 mg tablet 50 tab PO PRN PRN 01/19/22 07/27/22 History hydroxychloroquine 200 mg tablet 200 mg PO DAILY 02/06/22 07/30/22 History acetaminophen 650 mg 1,300 mg PO DAILY 03/29/22 07/27/22 History tablet,extended release (Tylenol Arthritis Pain) amiodarone 200 mg tablet 200 mg PO DAILY 03/29/22 07/30/22 History calcium carbonate 600 mg-vitamin 1 tab PO DAILY 03/29/22 07/27/22 History D3 20 mcg (800 unit) tablet cholecalciferol (vitamin D3) 25 25 mcg PO DAILY 03/29/22 07/30/22 History mcg (1,000 unit) capsule albuterol sulfate 0.63 mg/3 mL 0.63 mg (3 mL) inhalation QID PRN 06/26/22 07/27/22 Rx solution for nebulization shortness of breath or wheezing #90 mL tiotropium bromide 2.5 2 inh inhalation QAM #12 grams 06/27/22 07/27/22 Rx mcg/actuation mist for inhalation (Spiriva Respimat) metoprolol succinate 50 mg 100 mg PO DAILY #90 tabs 07/27/22 07/30/22 Rx tablet,extended release 24 hr ferrous sulfate 28 mg iron tablet 28 mg PO DAILY 07/30/22 07/30/22 History tiotropium bromide 2.5 inhalation 07/30/22 07/30/22 History mcg/actuation mist for inhalation (Spiriva Respimat) Exam Narrative Exam Narrative: Gen: NAD, normal respiratory effort, thin. Pleasant and conversant HENT: sclera clear. MMM. Chest: No respiratory distress, normal appearance of chest, bilateral crackles Heart: regular rate and rhythym, no murmur Abdomen: Soft, NT, ND. Extremities: No edema, calf tenderness. Neuro: AAOx3 , Esteban. Psych: speech clear, affect normal. Results Labs 07/30/22 12:00 07/31/22 05:58 Labs: Laboratory Results - last 24 hr 07/30/22 07/30/22 07/30/22 12:00 12:00 12:00 WBC 7.73 RBC 5.26 Hgb 14.4 Hct 46.6 MCV 89 MCH 27.4 MCHC 30.9 L RDW 16.1 H Plt Count 238 MPV 9.3 Immature Gran % 0.3 Neutrophils % 78.2 Lymphocytes % 11.8 Monocytes % 8.5 Eosinophils % 0.8 Basophils % 0.4 Nucleated RBC % 0.0 Absolute Neutrophils 6.05 Absolute Lymphocytes 0.91 L Absolute Monocytes 0.66 Absolute Eosinophils 0.06 Absolute Basophils 0.03 D-Dimer Cancelled Sodium 136 Potassium 3.8 Chloride 99 Carbon Dioxide 29.2 Anion Gap 7.8 BUN 19 H Creatinine 1.0 Est GFR (CKD-EPI 2020) 79.97 Glucose 91 Calcium 9.4 Phosphorus Magnesium 1.9 Total Bilirubin 0.9 AST 50 H ALT 93 H Alkaline Phosphatase 97 Creatine Kinase Cancelled Troponin I < 50 Total Protein 7.7 Albumin 3.5 TSH Free T4 Add-On Test Request 07/30/22 07/30/22 07/30/22 12:00 12:00 12:00 WBC RBC Hgb Hct MCV MCH MCHC RDW Plt Count MPV Immature Gran % Neutrophils % Lymphocytes % Monocytes % Eosinophils % Basophils % Nucleated RBC % Absolute Neutrophils Absolute Lymphocytes Absolute Monocytes Absolute Eosinophils Absolute Basophils D-Dimer Sodium Potassium Chloride Carbon Dioxide Anion Gap BUN Creatinine Est GFR (CKD-EPI 2020) Glucose Calcium Phosphorus 2.5 L Magnesium Total Bilirubin AST ALT Alkaline Phosphatase Creatine Kinase Troponin I Total Protein Albumin TSH 6.02 H Free T4 1.30 Add-On Test Request DONE DONE 07/30/22 07/30/22 12:54 13:23 WBC RBC Hgb Hct MCV MCH MCHC RDW Plt Count MPV Immature Gran % Neutrophils % Lymphocytes % Monocytes % Eosinophils % Basophils % Nucleated RBC % Absolute Neutrophils Absolute Lymphocytes Absolute Monocytes Absolute Eosinophils Absolute Basophils D-Dimer 1300 H Sodium Potassium Chloride Carbon Dioxide Anion Gap BUN Creatinine Est GFR (CKD-EPI 2020) Glucose Calcium Phosphorus Magnesium Total Bilirubin AST ALT Alkaline Phosphatase Creatine Kinase Cancelled Troponin I Cancelled Total Protein Albumin TSH Free T4 Add-On Test Request Last Vital Signs Temp 36.6 C 07/30/22 11:57 Pulse 94 H 07/30/22 11:57 Resp 8 L 07/30/22 11:57 BP 133/79 07/30/22 11:57 Pulse Ox 96 07/30/22 12:08 Time Spent Time spent with Patient: 40-54 minutes Time was spent: preparing to see the patient(eg.review tests), obtaining and/or reviewing separately otained hiistory, ordering medications,tests, procedures, referring, communicating with other health caregivers homecare and indepentently interpreting results
--- NOTE | 2022-07-30 16:43 | NUR.NOTE ---
Pt ambulatory using walker with PT
--- NOTE | 2022-07-30 16:59 | IN_ITS ---
Date of service: 07/30/22 Time of Service: 15:38 PT Notes Visit Reasons: [facility] Inpatient Initial Evaluation Date: 07/30/2022 Referring Doctor: Yovany Recio MD PT Orders: PT CONSULT: Safety consult for D/C Precautions: Fall. Standard. Activity as tolerated. Patient Profile/Admitting Diagnosis: Patient admitted to the ED for assessment of pleural effusion, generalized weakness, and hypoxemia with referral to physical therapy for safety consult for discharge. PMHX: All Active Problems?(Updated 07/30/22 @ 16:25 by Yovany Recio MD) Pleural effusion (Acute) Weakness (Acute) Hypoxemia (Acute) Alcohol use (Acute) Weakness (Acute) Caregiver stress (Acute) History of lung cancer (Acute) Supplemental oxygen dependent (Acute) Frequent falls (Acute) Advanced care planning/counseling discussion (Acute) Palliative care encounter (Acute) Tachycardia (Acute) Dyspnea and respiratory abnormalities (Acute) S/P thoracotomy (Acute) Atrial flutter (Acute) Loculated pleural effusion (Acute) ADHD (Chronic) Panic disorder (Chronic) Alcohol abuse (Chronic) Depression (Chronic) Hypertension (Chronic) Smoker (Acute) Encounter for screening colonoscopy (Acute) S/P colonoscopy (Acute ~04/28/18) Colorectal polyp detected on colonoscopy (Acute ~04/28/18) Tubular adenoma Retinal hemorrhage (Acute) Emphysema lung (Acute) COPD (chronic obstructive pulmonary disease) (Chronic) Personal history of nicotine dependence (Acute) Pleural effusion (Acute) Medical History? Afib Anemia BPH (benign prostatic hyperplasia) Carcinoma of left lung Cataract Chronic pain of right wrist Coronary artery disease COVID-19 Elevated antinuclear antibody (DEJON) level Elevated PSA Elevated serum creatinine Erectile dysfunction Essential tremor Fibrothorax Hearing loss Hearing loss, bilateral History of depression History of elevated antinuclear antibody (DEJON) Long-term use of high-risk medication Lung cancer Nicotine dependence, cigarettes, uncomplicated Non-small cell carcinoma of lung Oral pharyngeal candidiasis Pain in right wrist Pleural effusion, left Positive DEJON (antinuclear antibody) 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 History of appendectomy History of colonoscopy (~01/2022) S/P partial lobectomy of lung [facility]ACELI Dr. Gutiérrez 03/2021 lung CA RH Social History/Home Situation: Lives with a caregiver who, patient and patient's friend says, is trying to get out of the house. This caregiver has done meal preparation, laundry, and all house chores on top of providing needed physical assist for patient prior to today's admission. Equipment Owned/DME: FWW Subjective: Patient admits that he has not been doing too much as he easily gets out of breath and fatigued with smallest of movement, leading to further mobility decline and decubitus. States that his balance has been declining as well which has contributed to his not wanting to stand up and move. Short of breath and felt unstable during ambulation activity. reports pain in bottom where pressure is. Objective: General Observation: Supine in bed. O2 supp at 3 L/min via NC. Mental Status: Alert and oriented as to person, place, time, and purpose. Able to pay attention, focus, and respond appropriately. Pain: 3-4/10 in sacral area at site of tissue injury Vital Signs: Desaturated to as low as 66% on 3 L with ambulation of about 75 feet using FWW ROM: Right Upper Extremity: Shoulder Flexion WFL. Shoulder abduction WFL. Elbow flexion WFL. Wrist flexion WFL. Functional opening and closing of hand WFL. Left Upper Extremity: Shoulder Flexion WFL. Shoulder abduction WFL. Elbow flexion WFL. Wrist flexion WFL. Functional opening and closing of hand WFL. Right Lower Extremity: Hip flexion WFL. Hip abduction WFL. Knee flexion WFL. Ankle dorsiflexion WFL. Ankle plantarflexion WFL. Left Lower Extremity: Hip flexion WFL. Hip abduction WFL. Knee flexion WFL. Ankle dorsiflexion WFL. Ankle plantarflexion WFL. Strength: Right Upper Extremity: Shoulder flexors 4-/5. Shoulder abductors 4-/5. Elbow flexors 4-/5. Elbow extensors 4-/5. Serging Machine Operator strong. Left Upper Extremity: Shoulder flexors 4-/5. Shoulder abductors 4-/5. Elbow flexors 4-/5. Elbow extensors 4-/5. Serging Machine Operator strong. Right Lower Extremity: Hip flexors 3+/5. Hip abductors 3+/5. Knee flexors 4-/5. Knee extensors 4-/5. Ankle dorsiflexors 4-/5. Ankle plantarflexors 4-/5. Left Lower Extremity: Hip flexors 3+/5. Hip abductors 3+/5. Knee flexors 4-/5. Knee extensors 4-/5. Ankle dorsiflexors 4-/5. Ankle plantarflexors 4-/5. Bed Mobility/Transfers: Rolling with moderate assist Supine to sit moderate assist Sit to supine moderate assist Sit to stand moderate assist Stand to sit moderate assist Gait: Instructed patient with level surface ambulation of 75 feet + 75 feet requiring minimal assist. Anjali decreased. Step height and length decreased and asymmetric. Tended to lag behind FWW, felt like he was going to fall forward. Moderately short of breath. Desaturated to 66% on 3 L and needed to be bumped up to 6 L per recommendation of Nurse Carolynn which was able to re-saturate patient back up to above 90%. Balance: Static Sitting: Fair Dynamic Sitting: Fair Static Standing: Fair Dynamic Standing: Fair Special Tests: Mobility Limitations Standardized Measure [facility] AM-PAC 6 clicks Basic Mobility Inpatient Short Form: Raw Score: 12 CMS Score: 69% deficit 4-Stage Balance Test: Unable to maintain any of the 4 positions for 10 seconds indicating high fall risk without assistive device and caregiver assistance Informed Consent/Education: Patient was instructed in purpose of PT consult. DR. Recio and LACEY Mullins apprised about patient's mobility limitations and caregiver needs. Assessment: Patient demonstrates increased risk for falls, generalized weakness, and increased dependence in mobility level which decrease his ability to thrive at home alone. he currently has some caregiving availability issue which will limit his ability to safely stay at home. Patient presents with clinical signs and symptoms consistent with current/admitting diagnoses that have resulted to mobility limitations, gait instability, generalized weakness, and overall ADL decline as demonstrated by the following impairment level findings: 1. Decreased strength to B UE/LE major muscle groups 2. Impaired standing balance 3. Impaired activity tolerance 4. Shortness of breath 5. Need for continuous oxygen 6. Decubitus in gluteal/sacral area Impairments are contributing to the following functional limitations: 1. Decline in bed mobility skills 2. Decline in transfer skills 3. Difficulty with ambulation without assistive device and physical assistance 4. Increased completion time for mobility ADL performance 5. Increased risk for falls 6. Difficulty with managing steps alone safely Patient is assessed as a 11853 moderate complexity based on the following: History: [id number] with past medical history as indicated above Examination: Demonstrable impairment in strength, balance, and mobility level with underlying impairments and functional limitations as exhibited above as well as deficit score of 69% utilizing the [facility] Mobility Inpatient Short Form Presentation: Evolving Decision Makin moderate complexity Goals: N/A. PT evaluation and 1 treatment session only for functional mobility retraining. Plan of Care/Treatment Plan: N/A. PT evaluation and 1 treatment session only for functional mobility retraining. DISCHARGE RECOMMENDATIONS: Home with no services [] [] Home with services [specify] [] Home with outpatient PT [] [] SNF for continued rehabilitation [] [] Care Home Care [] [] SNF versus LTC based on ability to participate and progress [] [X] SNF vs. supervised home setting vs. HHPT based on ability to progress towards goals TREATMENT CODE/TIME: 63984 x 20 minutes, 85278 x 21 minutes beginning at 15:38 PM. Thank you for the opportunity to participate in the care of this patient. Hyacinth Stanley PT, DPT, CLT [facility] [place], [place]
[2022-07-30] MEDS: Rivaroxaban 10 MG TABLET 20 MG PO (18:50)
[2022-07-30 18:59] LABS: Lab Add On Test DONE
[2022-07-30 19:32] LABS: NT-proBNP 19946 pg/mL (<300)
[2022-07-30 19:58] LABS: Procalcitonin 0.1 ng/mL
[2022-07-30] MEDS: Normal Saline Flush 10 ML SYR IVP (20:59)
[2022-07-30] MEDS: Polyethylene Glycol 3350 17 GM PACKET PO (20:59)
[2022-07-31] VITALS (58 sets, daily range): BP systolic 94–126; BP diastolic 64–102; PULSE 74–115; RESP 13–30; TEMP 36.8–37.1; O2SAT 93–99
[2022-07-31] MEDS: Furosemide 100 MG/10 ML VIAL 80 MG IVP ×2 (06:44→16:12)
[2022-07-31] MEDS: Normal Saline Flush 10 ML SYR IVP ×3 (06:45→21:37)
--- NOTE | 2022-07-31 06:52 | W.PULMCON ---
General Date Of Service Date of service: 07/31/22 Time of Service: 06:54 Reason for Consult: Pleural Effusion Assessment and Plan Assessment and plan (1) Pleural effusion: Status: Acute (2) History of lung cancer: Status: Acute (3) Respiratory failure with hypoxia: Status: Acute (4) Trapped lung: Status: Acute (5) Atrial flutter: Status: Acute Assessment and plan: This is a 71 yo admitted for progressive weakness and a new large right sided pleural effusion. On CT scan the pleural space appears simple - similar to the small right sided effusion seen at his last clinic visit. He does have a left trapped lung with hydropneumothorax s/p decortication - completed by his thoracic surgeon Dr. Gutiérrez at [facility]. On POCUS today his EF looks decreased with hypokinesis to akinesis of the septal wall with a generously sized RV. His IVC is plethoric and large. His last echo at [facility] (05/03) was unable to accurately comment on EF due to his tachyarrythmia, but an echo from 09/2021 did not find a decreased EF, which makes me think this is a recent event. Given the focal wall issues, I do worry if he had an ischemic even which lead to this. On assessment of the effusion it appears simple and is certainly amenable to thoracentesis, however I do think it is related to his diminished EF and since he is on Xarelto, any thoracentesis should be delayed for now (given his clinical stability). I recommend continuing to hold his Xarelto and work on diuresis. If the effusion is still large and affecting him clinically, I am willing to do a diagnostic and therapeutic thoracentesis on . Right pleural effusion - hold Xarelto - I am willing to do thoracentesis if needed - decreased EF on POCUS, effusion is likely transdudative with a cardiac etiology Left trapped lung - s/p mechanical decortication and pleurodesis at [facility] - now with hydropneumothorax of little significance A. flutter - again continue to hold Xarelto for now - continue rate control History of Present Illness Narrative: This is a 71 yo whom I see in pulmonary clinic for mild COPD, ARACELI NSCLC s/p lobectomy with recurrent left pleural effusion s/p left decortication with Dr. Gutiérrez at [facility]. On the left he has a trapped lung with hydropneumothorax. He was last seen in my clinic on 06/26/22 and had a POCUS at that time which did find a small right sided effusion, however today he is found to have a large right pleural effusion. He is in respiratory failure, but only requiring 1LPM. He has had an echo 02/2022 that was unable to quantify EF due to tachyarrythmia. His chest CT 04/2022 did demonstrated the hydropneumothorax, so this is chronic. He is still feeling weak but is improved from when he came in. He does have some difficulty breathing. Review of Systems All systems reviewed & are unremarkable except as noted in HPI and below PFSH All Active Problems (Updated 07/31/22 @ 07:01 by Josephine Sotomayor MD) Trapped lung (Acute) Respiratory failure with hypoxia (Acute) Pleural effusion (Acute) Weakness (Acute) Hypoxemia (Acute) Alcohol use (Acute) Weakness (Acute) Caregiver stress (Acute) History of lung cancer (Acute) Supplemental oxygen dependent (Acute) Frequent falls (Acute) Advanced care planning/counseling discussion (Acute) Palliative care encounter (Acute) Tachycardia (Acute) Dyspnea and respiratory abnormalities (Acute) S/P thoracotomy (Acute) Atrial flutter (Acute) Loculated pleural effusion (Acute) ADHD (Chronic) Panic disorder (Chronic) Alcohol abuse (Chronic) Depression (Chronic) Hypertension (Chronic) Smoker (Acute) Encounter for screening colonoscopy (Acute) S/P colonoscopy (Acute ~04/28/18) Colorectal polyp detected on colonoscopy (Acute ~04/28/18) Tubular adenoma Retinal hemorrhage (Acute) Emphysema lung (Acute) COPD (chronic obstructive pulmonary disease) (Chronic) Personal history of nicotine dependence (Acute) Pleural effusion (Acute) Medical History Afib Anemia BPH (benign prostatic hyperplasia) Carcinoma of left lung Cataract Chronic pain of right wrist Coronary artery disease COVID-19 Elevated antinuclear antibody (DEJON) level Elevated PSA Elevated serum creatinine Erectile dysfunction Essential tremor Fibrothorax Hearing loss Hearing loss, bilateral History of depression History of elevated antinuclear antibody (DEJON) Long-term use of high-risk medication Lung cancer Nicotine dependence, cigarettes, uncomplicated Non-small cell carcinoma of lung Oral pharyngeal candidiasis Pain in right wrist Pleural effusion, left Positive DEJON (antinuclear antibody) 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 Gutiérrez 03/2021 lung CA RH Social History Smoking/Tobacco Use Status: Former Tobacco Use Quit Date: 12/09/21 Smoking risk assessment performed?: Yes Alcohol Intake: former Drug use: Rarely Substance use type: marijuana Do you feel safe at home: Yes Do you feel safe in your relationship?: Yes Visit Medication and Allergies Active Medications Generic Name Dose Route Start Last Admin Trade Name Freq PRN Reason Stop Dose Admin Acetaminophen 0 mg 07/30/22 16:43 Acetaminophen 325 Mg Tab PO Q4H PRN PRN Al Hydrox/Mg Hydrox/Simethicone 30 ml 07/30/22 16:43 Mylanta Suspension 30 Ml Cup PO Q2H PRN PRN Albuterol Sulfate 2.5 mg 07/30/22 16:38 Albuterol 2.5 Mg/3 Ml Inh Soln Vial UPD Q2H PRN PRN Amiodarone HCl 200 mg 07/31/22 08:30 Amiodarone 200 Mg Tab PO DAILY EAGLE Bupropion HCl 150 mg 07/31/22 08:30 Bupropion-Cr 150 Mg Tabcr PO QAM EAGLE Cholecalciferol 1,000 units 07/31/22 08:30 Cholecalciferol (Vitamin D3) 1,000 Unit Tab PO DAILY EAGLE Dimethicone/Zinc Oxide 0 gm 07/30/22 16:38 Brittany Protect Cream 142 Gm Tube TP PRN PRN Furosemide 80 mg 07/31/22 06:25 07/31/22 06:44 Furosemide 100 Mg/10 Ml Vial IVP 80 mg BID@0800,1600 EAGLE Administration Iohexol 100 ml 07/30/22 15:30 07/30/22 15:23 Omnipaque 350 Mg/Ml 100 Ml Btl IJ 08/29/22 23:59 100 ml DIRECTED EAGLE Administration Metoprolol Succinate 100 mg 07/31/22 08:30 Metoprolol Cr 50 Mg Tabcr PO DAILY EAGLE Polyethylene Glycol 17 gm 07/30/22 16:38 07/30/22 20:59 Polyethylene Glycol 3350 17 Gm Packet PO 17 gm DAILY PRN PRN Administration Constipation Rivaroxaban 20 mg 07/30/22 17:00 07/30/22 18:50 Rivaroxaban 10 Mg Tablet PO 20 mg DAILY@1700 EAGLE Administration Sodium Chloride 50 ml 07/30/22 15:30 07/30/22 15:24 Normal Saline - Diluent 50 Ml Vial IJ 50 ml .FOR DI USE EAGLE Administration Sodium Chloride 0 ml 07/30/22 20:20 07/31/22 06:45 Normal Saline Flush 10 Ml Syr IVP 20 ml PRN PRN Administration Tamsulosin HCl 0.4 mg 07/31/22 08:30 Tamsulosin 0.4 Mg Capcr PO DAILY EAGLE Tiotropium [place] 1 puff 07/31/22 08:30 Tiotropium [place]-Respimat 10 Puff Inh IH DAILY EAGLE Allergies seasonal Allergy (Uncoded 07/30/22 12:03) Exam Narrative Exam Narrative: Gen: NAD, normal respiratory effort, thin HENT: PERRL Chest: No respiratory distress, normal appearance of chest, bilateral crackles Heart: regular rate and rhythym, no murmurs, rubs or gallops Abdomen: Non-distended, soft, non tender Extremities: No clubbing, edema, cyanosis, rashes Neuro: AAOx3 , non focal Psych: cooperative, appropriate mental affect Results Last Vital Signs Temp 36.9 C 07/31/22 04:05 Pulse 108 H 07/31/22 04:05 Resp 21 07/31/22 04:05 BP 107/79 07/31/22 04:05 Pulse Ox 97 07/31/22 04:05 Labs 07/30/22 12:00 07/31/22 05:58 Labs: Laboratory Results - last 24 hr 07/30/22 07/30/22 07/30/22 12:00 12:00 12:00 WBC 7.73 RBC 5.26 Hgb 14.4 Hct 46.6 MCV 89 MCH 27.4 MCHC 30.9 L RDW 16.1 H Plt Count 238 MPV 9.3 Immature Gran % 0.3 Neutrophils % 78.2 Lymphocytes % 11.8 Monocytes % 8.5 Eosinophils % 0.8 Basophils % 0.4 Nucleated RBC % 0.0 Absolute Neutrophils 6.05 Absolute Lymphocytes 0.91 L Absolute Monocytes 0.66 Absolute Eosinophils 0.06 Absolute Basophils 0.03 D-Dimer Cancelled Sodium 136 Potassium 3.8 Chloride 99 Carbon Dioxide 29.2 Anion Gap 7.8 BUN 19 H Creatinine 1.0 Est GFR (CKD-EPI 2020) 79.97 Glucose 91 Calcium 9.4 Phosphorus Magnesium 1.9 Total Bilirubin 0.9 AST 50 H ALT 93 H Alkaline Phosphatase 97 Creatine Kinase Cancelled Troponin I < 50 NT-Pro-B Natriuret Pep Total Protein 7.7 Albumin 3.5 Procalcitonin TSH Free T4 Add-On Test Request 07/30/22 07/30/22 07/30/22 12:00 12:00 12:00 WBC RBC Hgb Hct MCV MCH MCHC RDW Plt Count MPV Immature Gran % Neutrophils % Lymphocytes % Monocytes % Eosinophils % Basophils % Nucleated RBC % Absolute Neutrophils Absolute Lymphocytes Absolute Monocytes Absolute Eosinophils Absolute Basophils D-Dimer Sodium Potassium Chloride Carbon Dioxide Anion Gap BUN Creatinine Est GFR (CKD-EPI 2020) Glucose Calcium Phosphorus 2.5 L Magnesium Total Bilirubin AST ALT Alkaline Phosphatase Creatine Kinase Troponin I NT-Pro-B Natriuret Pep Total Protein Albumin Procalcitonin TSH 6.02 H Free T4 1.30 Add-On Test Request DONE DONE 07/30/22 07/30/22 07/30/22 12:54 13:23 18:50 WBC RBC Hgb Hct MCV MCH MCHC RDW Plt Count MPV Immature Gran % Neutrophils % Lymphocytes % Monocytes % Eosinophils % Basophils % Nucleated RBC % Absolute Neutrophils Absolute Lymphocytes Absolute Monocytes Absolute Eosinophils Absolute Basophils D-Dimer 1300 H Sodium Potassium Chloride Carbon Dioxide Anion Gap BUN Creatinine Est GFR (CKD-EPI 2020) Glucose Calcium Phosphorus Magnesium Total Bilirubin AST ALT Alkaline Phosphatase Creatine Kinase Cancelled Troponin I Cancelled NT-Pro-B Natriuret Pep Total Protein Albumin Procalcitonin TSH Free T4 Add-On Test Request DONE 07/30/22 07/30/22 18:50 18:50 WBC RBC Hgb Hct MCV MCH MCHC RDW Plt Count MPV Immature Gran % Neutrophils % Lymphocytes % Monocytes % Eosinophils % Basophils % Nucleated RBC % Absolute Neutrophils Absolute Lymphocytes Absolute Monocytes Absolute Eosinophils Absolute Basophils D-Dimer Sodium Potassium Chloride Carbon Dioxide Anion Gap BUN Creatinine Est GFR (CKD-EPI 2020) Glucose Calcium Phosphorus Magnesium Total Bilirubin AST ALT Alkaline Phosphatase Creatine Kinase Troponin I NT-Pro-B Natriuret Pep H Total Protein Albumin Procalcitonin 0.1 TSH Free T4 Add-On Test Request Pocus Exam Limited Cardiac Exam DATE OF EXAM: 07/31/22 TIME OF EXAM: 07:30 PROVIDER THAT PERFORMED THE STUDY: Josephine Sotomayor IS THIS A REPEAT EXAM DURING THIS ENCOUNTER: no REASON FOR EXAM: Dyspnea and Evaluation of LV function VISUALIZED STRUCTURES: four chambers, left atrium, left ventricle, LVOT, right atrium, right ventricle, aortic valve, mitral valve, Interventricular septum and IVC VIEW OBTAINED: Apical 4-Chamber, Parasternal long-axis, Parasternal short-axis and Subxiphoid PERTINENT FINDINGS/IMPRESSION: LV dysfunction, Pericardial effusion (small, non circumferential), Plethoric IVC and RV dilation DIFFERENTIAL DIAGNOSES: CHF exacerbation, HFrEF, past ischemic event? Exam complete Limited Thoracic Lung Exam DATE OF EXAM: 07/31/22 TIME OF EXAM: 07:30 IS THIS A REPEAT EXAM DURING THIS ENCOUNTER: No REASON FOR EXAM: Hypoxia and Other indication: pleural effusion VISUALIZED STRUCTURES: right posterior PERTINENT FINDINGS/IMPRESSION: B-lines/right side and Right pleural effusion (simple appearing) Exam complete
[2022-07-31 07:15] LABS: ALT 67 U/L (16-63); AST 36 U/L (15-37); Albumin 2.8 g/dL (3.4-5.0); Alkaline Phosphatase 80 U/L (46-116); Anion Gap 6.1 mmol/L (3-11); BUN 21 mg/dL (7-18); Bilirubin, Total 0.8 mg/dL (0.2-1.0); CO2 30.9 mmol/L (21.0-32.0); CREATININE 1.1 mg/dL (0.70-1.30); Calcium 8.7 mg/dL (8.5-10.1); Chloride 101 mmol/L (98-107); Estimated GFR 71.32 (mL/min/1.73m2); Glucose 91 mg/dL (74-106); Potassium 4.1 mmol/L (3.5-5.1); Sodium 138 mmol/L (136-145); Total Protein 6.2 g/dL (6.4-8.2)
[2022-07-31 07:49] LABS: INR 1.7 (0.9-1.1); Prothrombin Time 16.8 sec (9.3-11.0)
[2022-07-31] MEDS: Tiotropium Bromide-Respimat 10 PUFF INH 2 PUFF IH (08:22)
--- NOTE | 2022-07-31 08:33 | INITIAL_ITS ---
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 He has a grown daughter who lives in [facility] and 2 grandchildren, ages 16 and 21. Rajan is retired but worked at [employer] for 28 years. He has been ill since March with several hospitalizations and has become weak and deconditioned. He needs some assistance with AFDLs which Eleanor provides. He does not receive any community services. CURRENT FUNCTIONAL STATUS:: Rajan was sitting up in bed when CM met with him. He was polite and agreeable to conversation. Rajan shared that he has been getting progressively weaker, particularly in the last month. He stated that his balance is off and he has fallen. He stated I just can't walk. He informed CM that he is looking forward to PT and would be willing to have home health PT at discharge. Rajan stated that he is not interested in rehab at this time. He feels he can still manage at home with Eleanor's help. ADVANCE DIRECTIVES:: none on file Has patient been provided with info about the portal/API?: Yes Did the patient sign up for the portal?: No CODE STATUS:: Full Code INSURANCE COVERAGE / FINANCIAL ISSUES:: [facility] Medicare Replacement CURRENT HOME/COMMUNITY SERVICES/EQUIPMENT:: none PRIMARY CARE PHYSICIAN:: Tami Paz POTENTIAL DISCHARGE NEEDS:: follow up with community providers and plan of care PATIENT/FAMILY EDUCATION NEEDS:: Review of discharge instructions, limitations, follow up plan, medications, discuss Ask Me Three TRANSPORTATION:: to be determined by disposition PLAN:: Anticipate Rajan will return home with new home health services for nursing and PT. He will follow up with his providers both locally and [place] [facility] [place] transport with a friend. CM will follow and assess for discharge needs. PFSH All Active Problems (Updated 07/31/22 @ 07:01 by Josephine Sotomayor MD) Trapped lung (Acute) Respiratory failure with hypoxia (Acute) Pleural effusion (Acute) Weakness (Acute) Hypoxemia (Acute) Alcohol use (Acute) Weakness (Acute) Caregiver stress (Acute) History of lung cancer (Acute) Supplemental oxygen dependent (Acute) Frequent falls (Acute) Advanced care planning/counseling discussion (Acute) Palliative care encounter (Acute) Tachycardia (Acute) Dyspnea and respiratory abnormalities (Acute) S/P thoracotomy (Acute) Atrial flutter (Acute) Loculated pleural effusion (Acute) ADHD (Chronic) Panic disorder (Chronic) Alcohol abuse (Chronic) Depression (Chronic) Hypertension (Chronic) Smoker (Acute) Encounter for screening colonoscopy (Acute) S/P colonoscopy (Acute ~04/28/18) Colorectal polyp detected on colonoscopy (Acute ~04/28/18) Tubular adenoma Retinal hemorrhage (Acute) Emphysema lung (Acute) COPD (chronic obstructive pulmonary disease) (Chronic) Personal history of nicotine dependence (Acute) Pleural effusion (Acute) Medical History Afib Anemia BPH (benign prostatic hyperplasia) Carcinoma of left lung Cataract Chronic pain of right wrist Coronary artery disease COVID-19 Elevated antinuclear antibody (DEJON) level Elevated PSA Elevated serum creatinine Erectile dysfunction Essential tremor Fibrothorax Hearing loss Hearing loss, bilateral History of depression History of elevated antinuclear antibody (DEJON) Long-term use of high-risk medication Lung cancer Nicotine dependence, cigarettes, uncomplicated Non-small cell carcinoma of lung Oral pharyngeal candidiasis Pain in right wrist Pleural effusion, left Positive DEJON (antinuclear antibody) 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 Gutiérrez 03/2021 lung CA Social History Smoking/Tobacco Use Status: Former Tobacco Use Quit Date: 12/09/21 Smoking risk assessment performed?: Yes Alcohol Intake: former Drug use: Rarely Substance use type: marijuana Do you feel safe at home: Yes Do you feel safe in your relationship?: Yes
[2022-07-31] MEDS: Tamsulosin 0.4 MG CAPCR PO (09:02)
[2022-07-31] MEDS: Cholecalciferol (Vitamin D3) 1,000 UNIT TAB 1000 UNITS PO (09:02)
[2022-07-31] MEDS: Amiodarone 200 MG TAB PO (09:02)
[2022-07-31] MEDS: buPROPion-CR 150 MG TABCR PO (09:02)
[2022-07-31] MEDS: Metoprolol CR 50 MG TABCR 100 MG PO (09:03)
--- NOTE | 2022-07-31 16:33 | PGE_ITS ---
Date of Service Date of service: 07/31/22 Time of Service: 16:33 Assessment and Plan Assessment and plan (1) Pleural effusion: Status: Acute Assessment and plan: Dr Sotomayor, pulmonary/bow maker gift wrapping, consulted and performed bedside POCUS exam. Decreased EF noted. Elevated BNP. Likely a transudate that is secondary to heart failure. Diuresing with lasix. Has diuresed 6+L. LIkely decrease lasix dose in AM. Possible thoracentesis on Thurs if necessary. Formal echocardiogram when available. (2) Caregiver stress: Status: Acute Assessment and plan: He does not feel that his provider at home Eleanor can take care of him adequately on his own. This is d/t his progressive weakness, shortness of air. Care managment will be involved and we will be working with him on options of care at time of d/c. (3) Atrial flutter: Status: Acute Assessment and plan: Holding Xarelto in anticipation of a possible thoracentesis on Thurs. Cont metoprolol for rate control. (4) COVID-19: Assessment and plan: H/O Covid in May of this year. (5) Non-small cell carcinoma of lung: Assessment and plan: S/P left upper lobe lobectomy. 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 Holding currently d/t QTc prolongation on admission CT. Evaluate QT on telemetry and restart if appropriate. (7) Trapped lung: Status: Acute Assessment and plan: Secondary to mechanical decortication and pleurodesis in May of this year at [facility] [place] [place]. Pulmonary consulted, Dr Sotomayor, and mentions he now has hydropneumothorax that is of little significance. Subjective Subjective Patient reports: no new complaints, feels better, tolerating a regular diet and shortness of breath (Improved.); denies nausea or vomiting Exam Narrative Exam Narrative: Gen: NAD, normal respiratory effort, thin. Pleasant and conversant. Lying in bed. HENT: sclera clear. MMM. Chest: No respiratory distress, normal appearance of chest, bilateral crackles Heart: regular rate and rhythym, no murmur Abdomen: Soft, NT, ND. Extremities: No edema, calf tenderness. Neuro: AAOx3 , Esteban. Psych: speech clear, affect normal. Objective Last Vital Signs Temp 37.1 C 07/31/22 16:00 Pulse 87 07/31/22 16:03 Resp 24 07/31/22 16:00 BP 95/71 L 07/31/22 16:03 Pulse Ox 97 07/31/22 16:00 Laboratory Results - last 24 hr 07/30/22 07/30/22 07/30/22 18:50 18:50 18:50 PT INR Sodium Potassium Chloride Carbon Dioxide Anion Gap BUN Creatinine Est GFR (CKD-EPI 2020) Glucose Calcium Total Bilirubin AST ALT Alkaline Phosphatase NT-Pro-B Natriuret Pep 88134 H Total Protein Albumin Procalcitonin 0.1 Add-On Test Request DONE 07/31/22 07/31/22 05:58 07:25 PT 16.8 H INR 1.7 H Sodium 138 Potassium 4.1 Chloride 101 Carbon Dioxide 30.9 Anion Gap 6.1 BUN 21 H Creatinine 1.1 Est GFR (CKD-EPI 2020) 71.32 Glucose 91 Calcium 8.7 Total Bilirubin 0.8 AST 36 ALT 67 H Alkaline Phosphatase 80 NT-Pro-B Natriuret Pep Total Protein 6.2 L Albumin 2.8 L Procalcitonin Add-On Test Request PAWSS Have you Been Recently Intoxicated or Drunk Within the Last 30 days?: No Have you Ever Experienced Previous Episodes of Alcohol Withdrawal?: No Have you ever Experienced Withdrawal Seizures?: No Have you ever Experienced Delirium Tremens(DT)s?: No Have you ever undergone Alcohol Rehabilitation Treatment (i.e, inpt ot outpatient treatment programs)?: No Have you ever Experienced Blackouts?: No Have you ever Combined Alcohol with other Downers within the last 90 days?: No Have you ever Combined Alcohol with any other Substance of Abuse during the last 90 days?: Yes Positive Blood Alcohol level on Presentation? [PCS.BAL]: No Evidence of Increased Autonomic Activity (i.e. HR>120, tremor, sweating, agitation, nausea)?: No Result: 2 Time Spent with Patient Time Spent with Patient: 25-34 minutes Time was spent: preparing to see the patient(eg.review tests), ordering medications,tests, procedures, referring, communicating with other health early breastfeeding care specialist, indepentently interpreting results and counseling the patient
--- NOTE | 2022-07-31 17:06 | CHAPLAIN ---
Rajan was in bed when I visited. His friend Eleanor was with him. I explained my role and offered support.
[2022-07-31] MEDS: Potassium Chloride 20 MEQ TABCR PO (21:37)
[2022-08-01] VITALS (10 sets, daily range): BP systolic 102–110; BP diastolic 58–93; PULSE 60–109; RESP 16–20; TEMP 36.4–36.7; O2SAT 94–99
[2022-08-01 07:22] LABS: Anion Gap 5.2 mmol/L (3-11); BUN 25 mg/dL (7-18); CO2 33.8 mmol/L (21.0-32.0); CREATININE 1.3 mg/dL (0.70-1.30); Chloride 102 mmol/L (98-107); Estimated GFR 58.37 (mL/min/1.73m2); Glucose 116 mg/dL (74-106); Magnesium 1.7 mg/dL (1.8-2.4); Sodium 141 mmol/L (136-145)
[2022-08-01 07:27] LABS: Potassium 2.9 mmol/L (3.5-5.1)
[2022-08-01] MEDS: Cholecalciferol (Vitamin D3) 1,000 UNIT TAB 1000 UNITS PO (07:37)
[2022-08-01] MEDS: Potassium Chloride 20 MEQ TABCR PO ×2 (07:37→21:16)
[2022-08-01] MEDS: buPROPion-CR 150 MG TABCR PO (07:37)
[2022-08-01] MEDS: Tamsulosin 0.4 MG CAPCR PO (07:37)
[2022-08-01] MEDS: Metoprolol CR 50 MG TABCR 100 MG PO (07:37)
[2022-08-01] MEDS: Amiodarone 200 MG TAB PO (07:38)
[2022-08-01] MEDS: Furosemide 40 MG TAB PO (07:40)
[2022-08-01] MEDS: Normal Saline Flush 10 ML SYR IVP ×2 (08:34→10:32)
[2022-08-01] MEDS: POTASSIUM CHLORIDE 20 MEQ/100 ML BAG 50 MEQ IVPB (08:36)
--- NOTE | 2022-08-01 09:14 | NUR.NOTE ---
Potassium replacement: 20 mEqu ; pt unable to tolerate recommended rate, had to reduce to 5mEqu/hr. Nursing Note:
[2022-08-01] MEDS: Tiotropium Bromide-Respimat 10 PUFF INH 2 PUFF IH (09:25)
[2022-08-01] MEDS: POTASSIUM CHLORIDE 20 MEQ/100 ML BAG 25 MEQ IVPB (11:59)
--- NOTE | 2022-08-01 12:33 | PDOC.CMPRO ---
Date of service: 08/01/22 Time of Service: 12:33 Care Management Progress Note Progress Note Text Progress Note Text: S/O: Rajan was lying in bed watching TV when CM met with him. He is pleasant and easy to engage in conversation. Pulmonology is consulted and a thoracentesis is being considered tomorrow, if needed. PT recommends SNF vs. supervised home setting vs. HHPT based on ability to progress towards goals. Pt is agreeable to SNF for STR and shares that his goal is to get strong enough to mow his lawn and work around his house. SNF referrals are pending. A: 71 year old male admitted to [facility] on 07/30/22 for Pleural Effusion, Atrial Flutter P: PT recommends SNF vs. supervised home setting vs. HHPT based on ability to progress towards goals. Anticipate, Rajan will discharge to SNF for STR vs return home with new [facility] RN/PT/OT/FIRE EQUIPMENT OPERATOR services. He will follow up with his providers both locally and at [facility] [place] and will transport with a friend. CM will follow and assess for discharge needs.
--- NOTE | 2022-08-01 16:06 | W.PM.PROGNOT ---
Date of Service Date of service: 08/01/22 Time of Service: 16:06 Assessment and Plan Assessment and plan (1) Pleural effusion: Status: Acute Assessment and plan: Dr Sotomayor, pulmonary/computer forensic examiner, consulted and performed bedside POCUS exam. Decreased EF noted. Elevated BNP. Likely a transudate that is secondary to heart failure. Diuresing well with lasix. Has diuresed 10+L. Changed to po lasix 40mg daily. Possible thoracentesis on Th if necessary. Formal echocardiogram when available. (2) Caregiver stress: Status: Acute Assessment and plan: He does not feel that his provider at home [facility] can take care of him adequately on his own. This is d/t his progressive weakness, shortness of air. Care managment will be involved and we will be working with him on options of care at time of d/c. (3) Atrial flutter: Status: Acute Assessment and plan: Holding Xarelto in anticipation of a possible thoracentesis on Th. Cont metoprolol for rate control. (4) COVID-19: Assessment and plan: H/O Covid in May of this year. (5) Non-small cell carcinoma of lung: Assessment and plan: S/P left upper lobe lobectomy. 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 Holding currently d/t QTc prolongation on admission CT. Evaluate QT on telemetry and restart if appropriate. (7) Trapped lung: Status: Acute Assessment and plan: Secondary to mechanical decortication and pleurodesis in May of this year at [facility]. Pulmonary consulted, Dr Sotomayor, and mentions he now has hydropneumothorax that is of little significance. Subjective Subjective Patient reports: no new complaints, feels better, tolerating a regular diet and afebrile; denies nausea, vomiting or shortness of breath Exam Narrative Exam Narrative: Gen: NAD, normal respiratory effort, thin. Pleasant and conversant. Lying in bed. HENT: sclera clear. MMM. Chest: No respiratory distress, normal appearance of chest, bilateral crackles. Diminished breath sounds on left. Heart: regular rate and rhythm, no murmur Abdomen: Soft, NT, ND. Extremities: No edema, calf tenderness. Neuro: AAOx3 , Esteban. Psych: speech clear, affect normal. Objective Last Vital Signs Temp 36.6 C 08/01/22 15:20 Pulse 109 H 08/01/22 15:20 Resp 18 08/01/22 15:20 BP 106/75 08/01/22 15:20 Pulse Ox 97 08/01/22 15:20 Laboratory Results - last 24 hr 08/01/22 06:25 Sodium 141 Potassium 2.9 L D Chloride 102 Carbon Dioxide 33.8 H Anion Gap 5.2 BUN 25 H Creatinine 1.3 Est GFR (CKD-EPI 2020) 58.37 Glucose 116 H Calcium 9.0 Magnesium 1.7 L PAWSS Have you Been Recently Intoxicated or Drunk Within the Last 30 days?: No Have you Ever Experienced Previous Episodes of Alcohol Withdrawal?: No Have you ever Experienced Withdrawal Seizures?: No Have you ever Experienced Delirium Tremens(DT)s?: No Have you ever undergone Alcohol Rehabilitation Treatment (i.e, inpt ot outpatient treatment programs)?: No Have you ever Experienced Blackouts?: No Have you ever Combined Alcohol with other Downers within the last 90 days?: No Have you ever Combined Alcohol with any other Substance of Abuse during the last 90 days?: Yes Positive Blood Alcohol level on Presentation? [PCS.BAL]: No Evidence of Increased Autonomic Activity (i.e. HR>120, tremor, sweating, agitation, nausea)?: No Result: 2 Time Spent with Patient Time Spent with Patient: 25-34 minutes Time was spent: preparing to see the patient(eg.review tests), ordering medications,tests, procedures, referring, communicating with other health patient care coordinator, indepentently interpreting results and care coordination
[2022-08-01] MEDS: Magnesium Oxide 400 MG TAB PO (21:16)
[2022-08-02] VITALS (7 sets, daily range): BP systolic 98–113; BP diastolic 59–77; PULSE 89–114; RESP 14–20; TEMP 35.3–36.6; O2SAT 96–99
[2022-08-02 06:55] LABS: Anion Gap 5.6 mmol/L (3-11); BUN 27 mg/dL (7-18); CO2 32.4 mmol/L (21.0-32.0); CREATININE 1.2 mg/dL (0.70-1.30); Calcium 8.9 mg/dL (8.5-10.1); Chloride 102 mmol/L (98-107); Estimated GFR 64.25 (mL/min/1.73m2); Glucose 103 mg/dL (74-106); Magnesium 1.7 mg/dL (1.8-2.4); Potassium 3.6 mmol/L (3.5-5.1); Sodium 140 mmol/L (136-145)
--- NOTE | 2022-08-02 07:00 | DI.RAD_ITS ---
Exam(s) XR CHEST 2V PA LATERAL EXAM: XR CHEST 2V PA LATERAL CLINICAL HISTORY: Pleural effusion TECHNIQUE: 2D digital imaging was performed of the chest. Two images were obtained. PA and lateral views were obtained. COMPARISON: CR XR CHEST 2V PA LATERAL from 12/07/[address] CHEST PE CTA from 07/30/2022 FINDINGS: MEDIASTINUM: Normal. HEART: Normal. PULMONARY VASCULATURE: Normal. LUNGS: The right lung is clear. Patchy opacities are seen in the left lung which may represent atele ctasis or infiltrate. PLEURAL SPACE: There is a persistent left effusion. There is a air-fluid level seen in the left renetta thorax. This has a similar appearance to the CT scan of the chest from 07/30/2022. There is blunting of the right costophrenic angle which may represent a tiny right pleural effusion. BONE:Within normal limits for the patient's age. Postsurgical changes are seen of the left ribs. OTHER FINDINGS:Normal. IMPRESSION: 1. Persistent air-fluid collection in the left hemithorax. The patient has known in capsulated left fluid collections. 2. Probable small right pleural effusion. 3. Patchy opacities in the left lung which may represent atelectasis or infiltrate. DATA REPOSITORY: RADIATION DOSE DELIVERED:
--- NOTE | 2022-08-02 07:05 | W.PULMPROG ---
Assessment and Plan Assessment and plan (1) Pleural effusion: Status: Acute (2) History of lung cancer: Status: Acute (3) Respiratory failure with hypoxia: Status: Acute (4) Trapped lung: Status: Acute (5) Atrial flutter: Status: Acute Assessment and plan: This is a 71 yo admitted for progressive weakness and a new large right sided pleural effusion. On CT scan the pleural space appears simple - similar to the small right sided effusion seen at his last clinic visit. He does have a left trapped lung with hydropneumothorax s/p decortication - completed by his thoracic surgeon Dr. Gutiérrez at [facility]. On admission POCUS his EF looked decreased with hypokinesis to akinesis of the septal wall with a generously sized RV. His IVC was plethoric and large. His last echo at [facility] (05/03) was unable to accurately comment on EF due to his tachyarrythmia, but an echo from 09/2021 did not find a decreased EF, which makes me think this is a recent event. Given the focal wall issues, I do worry if he had an ischemic event which lead to this. On my initial assessment of the effusion it appeared simple and was certainly amenable to thoracentesis, however I did think it was related to his diminished EF and since he was on A/C and clinically stable, I opted to recommend diuresis and not perform thoracentesis. On POCUS assessment today of the effusion, it is significantly smaller in size. I do think he should be discharged on a diuretic and have a formal echo completed to confirm my prior POCUS imaging. I recommend he restart his Xarelto as he does not need a thoracentesis at this time. Right pleural effusion - ok to restart Xarelto - effusion has decreased in size - decreased EF on POCUS, effusion is likely transdudative with a cardiac etiology Left trapped lung - s/p mechanical decortication and pleurodesis at [facility] - now with hydropneumothorax of little significance A. flutter - restart Xarelto as above - continue rate control General Date Of Service Date of service: 08/02/22 Time of Service: 07:05 Reason for Consult: Pleural Effusion Subjective Note Note: Walker is feeling well but does complain of sacral pain. He wants to go to rehab to gain his strength and function back. He has been diuresed significantly. Exam Narrative Exam Narrative: Gen: NAD, normal respiratory effort, well-nourished HENT: PERRL Chest: No respiratory distress, normal appearance of chest, clear to auscultation bilaterally, no crackles or wheezes, normal inspiratory effort Heart: regular rate and rhythym, no murmurs, rubs or gallops Abdomen: Non-distended, soft, non tender Extremities: No clubbing, edema Neuro: AAOx3 , non focal Psych: cooperative, appropriate mental affect Objective Last Vital Signs Temp 36.6 C 08/02/22 00:00 Pulse 89 08/02/22 00:00 Resp 20 08/02/22 00:00 BP 98/59 L 08/02/22 00:00 Pulse Ox 96 08/02/22 00:00 Laboratory Results - last 24 hr 08/01/22 06:25 Sodium 141 Potassium 2.9 L D Chloride 102 Carbon Dioxide 33.8 H Anion Gap 5.2 BUN 25 H Creatinine 1.3 Est GFR (CKD-EPI 2020) 58.37 Glucose 116 H Calcium 9.0 Magnesium 1.7 L Results Medications Medications: Active Medications Generic Name Dose Route Start Last Admin Trade Name Freq PRN Reason Stop Dose Admin Acetaminophen 0 mg 07/30/22 16:43 Acetaminophen 325 Mg Tab PO Q4H PRN PRN Al Hydrox/Mg Hydrox/Simethicone 30 ml 07/30/22 16:43 Mylanta Suspension 30 Ml Cup PO Q2H PRN PRN Albuterol Sulfate 2.5 mg 07/30/22 16:38 Albuterol 2.5 Mg/3 Ml Inh Soln Vial UPD Q2H PRN PRN Amiodarone HCl 200 mg 07/31/22 08:30 08/01/22 07:38 Amiodarone 200 Mg Tab PO 200 mg DAILY EAGLE Administration Bupropion HCl 150 mg 07/31/22 08:30 08/01/22 07:37 Bupropion-Cr 150 Mg Tabcr PO 150 mg QAM EAGLE Administration Cholecalciferol 1,000 units 07/31/22 08:30 08/01/22 07:37 Cholecalciferol (Vitamin D3) 1,000 Unit Tab PO 1,000 units DAILY EAGLE Administration Dimethicone/Zinc Oxide 0 gm 07/30/22 16:38 Brittany Protect Cream 142 Gm Tube TP PRN PRN Furosemide 40 mg 08/01/22 08:30 08/01/22 07:40 Furosemide 40 Mg Tab PO 40 mg DAILY EAGLE Administration Magnesium Oxide 400 mg 08/01/22 22:00 08/01/22 21:16 Magnesium Oxide 400 Mg Tab PO 400 mg HS EAGLE Administration Metoprolol Succinate 100 mg 07/31/22 08:30 08/01/22 07:37 Metoprolol Cr 50 Mg Tabcr PO 100 mg DAILY EAGLE Administration Polyethylene Glycol 17 gm 07/30/22 16:38 07/30/22 20:59 Polyethylene Glycol 3350 17 Gm Packet PO 17 gm DAILY PRN PRN Administration Constipation Potassium Chloride 20 meq 07/31/22 20:00 08/01/22 21:16 Potassium Chloride 20 Meq Tabcr PO 20 meq BID EAGLE Administration Sodium Chloride 0 ml 07/30/22 20:20 08/01/22 10:32 Normal Saline Flush 10 Ml Syr IVP 10 ml PRN PRN Administration Tamsulosin HCl 0.4 mg 07/31/22 08:30 08/01/22 07:37 Tamsulosin 0.4 Mg Capcr PO 0.4 mg DAILY EAGLE Administration Tiotropium [place] 2 puff 07/31/22 08:30 08/01/22 09:25 Tiotropium [place]-Respimat 10 Puff Inh IH 2 puffs DAILY EAGLE Administration Allergies seasonal Allergy (Uncoded 07/30/22 12:03) Labs 07/30/22 12:00 08/02/22 06:25 Labs: Laboratory Tests Range/Units 07/30/22 07/30/22 07/30/22 12:00 12:00 12:00 WBC (4.4-10.8) 10^3/uL 7.73 RBC (4.36-5.78) 10^6/uL 5.26 Hgb (13.5-17.5) g/dL 14.4 Hct (40.0-50.0) % 46.6 MCV (80-95) fL 89 MCH (27.0-33.0) pg 27.4 MCHC (32.0-36.0) % 30.9 L RDW (11.8-14.1) % 16.1 H Plt Count (130-400) 10^3/uL 238 MPV (8.0-11.0) fL 9.3 Immature Gran % 0.3 Neutrophils % 78.2 Lymphocytes % 11.8 Monocytes % 8.5 Eosinophils % 0.8 Basophils % 0.4 Nucleated RBC % (0.0-0.3) % 0.0 Absolute Neutrophils (1.2-6.7) 10^3/uL 6.05 Absolute Lymphocytes (1.2-3.4) 10^3/uL 0.91 L Absolute Monocytes (0.1-0.8) 10^3/uL 0.66 Absolute Eosinophils (0.0-0.7) 10^3/uL 0.06 Absolute Basophils (0.0-0.2) 10^3/uL 0.03 PT (9.3-11.0) sec INR (0.9-1.1) D-Dimer Cancelled Sodium (136-145) mmol/L 136 Potassium (3.5-5.1) mmol/L 3.8 Chloride (98-107) mmol/L 99 Carbon Dioxide (21.0-32.0) mmol/L 29.2 Anion Gap (3-11) mmol/L 7.8 BUN (7-18) mg/dL 19 H Creatinine (0.70-1.30) mg/dL 1.0 Est GFR (CKD-EPI 2020) (mL/min/1.73m2) 79.97 Glucose (74-106) mg/dL 91 Calcium (8.5-10.1) mg/dL 9.4 Phosphorus (2.6-4.7) mg/dL Magnesium (1.8-2.4) mg/dL 1.9 Total Bilirubin (0.2-1.0) mg/dL 0.9 AST (15-37) U/L 50 H ALT (16-63) U/L 93 H Alkaline Phosphatase (46-116) U/L 97 Creatine Kinase Cancelled Troponin I (<or=60) ng/L < 50 NT-Pro-B Natriuret Pep (<300) pg/mL Total Protein (6.4-8.2) g/dL 7.7 Albumin (3.4-5.0) g/dL 3.5 Procalcitonin ng/mL TSH (0.36-3.74) uIU/mL Free T4 (0.76-1.46) ng/dL Add-On Test Request Range/Units 0507/30/22 07/30/22 12:00 12:00 12:00 WBC (4.4-10.8) 10^3/uL RBC (4.36-5.78) 10^6/uL Hgb (13.5-17.5) g/dL Hct (40.0-50.0) % MCV (80-95) fL MCH (27.0-33.0) pg MCHC (32.0-36.0) % RDW (11.8-14.1) % Plt Count (130-400) 10^3/uL MPV (8.0-11.0) fL Immature Gran % Neutrophils % Lymphocytes % Monocytes % Eosinophils % Basophils % Nucleated RBC % (0.0-0.3) % Absolute Neutrophils (1.2-6.7) 10^3/uL Absolute Lymphocytes (1.2-3.4) 10^3/uL Absolute Monocytes (0.1-0.8) 10^3/uL Absolute Eosinophils (0.0-0.7) 10^3/uL Absolute Basophils (0.0-0.2) 10^3/uL PT (9.3-11.0) sec INR (0.9-1.1) D-Dimer Sodium (136-145) mmol/L Potassium (3.5-5.1) mmol/L Chloride (98-107) mmol/L Carbon Dioxide (21.0-32.0) mmol/L Anion Gap (3-11) mmol/L BUN (7-18) mg/dL Creatinine (0.70-1.30) mg/dL Est GFR (CKD-EPI 2020) (mL/min/1.73m2) Glucose (74-106) mg/dL Calcium (8.5-10.1) mg/dL Phosphorus (2.6-4.7) mg/dL 2.5 L Magnesium (1.8-2.4) mg/dL Total Bilirubin (0.2-1.0) mg/dL AST (15-37) U/L ALT (16-63) U/L Alkaline Phosphatase (46-116) U/L Creatine Kinase Troponin I (<or=60) ng/L NT-Pro-B Natriuret Pep (<300) pg/mL Total Protein (6.4-8.2) g/dL Albumin (3.4-5.0) g/dL Procalcitonin ng/mL TSH (0.36-3.74) uIU/mL 6.02 H Free T4 (0.76-1.46) ng/dL 1.30 Add-On Test Request DONE DONE Range/Units 07/30/22 07/30/22 07/30/22 12:54 13:23 18:50 WBC (4.4-10.8) 10^3/uL RBC (4.36-5.78) 10^6/uL Hgb (13.5-17.5) g/dL Hct (40.0-50.0) % MCV (80-95) fL MCH (27.0-33.0) pg MCHC (32.0-36.0) % RDW (11.8-14.1) % Plt Count (130-400) 10^3/uL MPV (8.0-11.0) fL Immature Gran % Neutrophils % Lymphocytes % Monocytes % Eosinophils % Basophils % Nucleated RBC % (0.0-0.3) % Absolute Neutrophils (1.2-6.7) 10^3/uL Absolute Lymphocytes (1.2-3.4) 10^3/uL Absolute Monocytes (0.1-0.8) 10^3/uL Absolute Eosinophils (0.0-0.7) 10^3/uL Absolute Basophils (0.0-0.2) 10^3/uL PT (9.3-11.0) sec INR (0.9-1.1) D-Dimer 1300 H Sodium (136-145) mmol/L Potassium (3.5-5.1) mmol/L Chloride (98-107) mmol/L Carbon Dioxide (21.0-32.0) mmol/L Anion Gap (3-11) mmol/L BUN (7-18) mg/dL Creatinine (0.70-1.30) mg/dL Est GFR (CKD-EPI 2020) (mL/min/1.73m2) Glucose (74-106) mg/dL Calcium (8.5-10.1) mg/dL Phosphorus (2.6-4.7) mg/dL Magnesium (1.8-2.4) mg/dL Total Bilirubin (0.2-1.0) mg/dL AST (15-37) U/L ALT (16-63) U/L Alkaline Phosphatase (46-116) U/L Creatine Kinase Cancelled Troponin I (<or=60) ng/L Cancelled NT-Pro-B Natriuret Pep (<300) pg/mL Total Protein (6.4-8.2) g/dL Albumin (3.4-5.0) g/dL Procalcitonin ng/mL TSH (0.36-3.74) uIU/mL Free T4 (0.76-1.46) ng/dL Add-On Test Request DONE Range/Units 07/30/22 07/30/22 07/31/22 18:50 18:50 05:58 WBC (4.4-10.8) 10^3/uL RBC (4.36-5.78) 10^6/uL Hgb (13.5-17.5) g/dL Hct (40.0-50.0) % MCV (80-95) fL MCH (27.0-33.0) pg MCHC (32.0-36.0) % RDW (11.8-14.1) % Plt Count (130-400) 10^3/uL MPV (8.0-11.0) fL Immature Gran % Neutrophils % Lymphocytes % Monocytes % Eosinophils % Basophils % Nucleated RBC % (0.0-0.3) % Absolute Neutrophils (1.2-6.7) 10^3/uL Absolute Lymphocytes (1.2-3.4) 10^3/uL Absolute Monocytes (0.1-0.8) 10^3/uL Absolute Eosinophils (0.0-0.7) 10^3/uL Absolute Basophils (0.0-0.2) 10^3/uL PT (9.3-11.0) sec INR (0.9-1.1) D-Dimer Sodium (136-145) mmol/L 138 Potassium (3.5-5.1) mmol/L 4.1 Chloride (98-107) mmol/L 101 Carbon Dioxide (21.0-32.0) mmol/L 30.9 Anion Gap (3-11) mmol/L 6.1 BUN (7-18) mg/dL 21 H Creatinine (0.70-1.30) mg/dL 1.1 Est GFR (CKD-EPI 2020) (mL/min/1.73m2) 71.32 Glucose (74-106) mg/dL 91 Calcium (8.5-10.1) mg/dL 8.7 Phosphorus (2.6-4.7) mg/dL Magnesium (1.8-2.4) mg/dL Total Bilirubin (0.2-1.0) mg/dL 0.8 AST (15-37) U/L 36 ALT (16-63) U/L 67 H Alkaline Phosphatase (46-116) U/L 80 Creatine Kinase Troponin I (<or=60) ng/L NT-Pro-B Natriuret Pep (<300) pg/mL H Total Protein (6.4-8.2) g/dL 6.2 L Albumin (3.4-5.0) g/dL 2.8 L Procalcitonin ng/mL 0.1 TSH (0.36-3.74) uIU/mL Free T4 (0.76-1.46) ng/dL Add-On Test Request Range/Units 07/31/22 08/01/22 07:25 06:25 WBC (4.4-10.8) 10^3/uL RBC (4.36-5.78) 10^6/uL Hgb (13.5-17.5) g/dL Hct (40.0-50.0) % MCV (80-95) fL MCH (27.0-33.0) pg MCHC (32.0-36.0) % RDW (11.8-14.1) % Plt Count (130-400) 10^3/uL MPV (8.0-11.0) fL Immature Gran % Neutrophils % Lymphocytes % Monocytes % Eosinophils % Basophils % Nucleated RBC % (0.0-0.3) % Absolute Neutrophils (1.2-6.7) 10^3/uL Absolute Lymphocytes (1.2-3.4) 10^3/uL Absolute Monocytes (0.1-0.8) 10^3/uL Absolute Eosinophils (0.0-0.7) 10^3/uL Absolute Basophils (0.0-0.2) 10^3/uL PT (9.3-11.0) sec 16.8 H INR (0.9-1.1) 1.7 H D-Dimer Sodium (136-145) mmol/L 141 Potassium (3.5-5.1) mmol/L 2.9 L D Chloride (98-107) mmol/L 102 Carbon Dioxide (21.0-32.0) mmol/L 33.8 H Anion Gap (3-11) mmol/L 5.2 BUN (7-18) mg/dL 25 H Creatinine (0.70-1.30) mg/dL 1.3 Est GFR (CKD-EPI 2020) (mL/min/1.73m2) 58.37 Glucose (74-106) mg/dL 116 H Calcium (8.5-10.1) mg/dL 9.0 Phosphorus (2.6-4.7) mg/dL Magnesium (1.8-2.4) mg/dL 1.7 L Total Bilirubin (0.2-1.0) mg/dL AST (15-37) U/L ALT (16-63) U/L Alkaline Phosphatase (46-116) U/L Creatine Kinase Troponin I (<or=60) ng/L NT-Pro-B Natriuret Pep (<300) pg/mL Total Protein (6.4-8.2) g/dL Albumin (3.4-5.0) g/dL Procalcitonin ng/mL TSH (0.36-3.74) uIU/mL Free T4 (0.76-1.46) ng/dL Add-On Test Request Pocus Exam Limited Thoracic Lung Exam DATE OF EXAM: 08/02/22 TIME OF EXAM: 08:45 PROVIDER THAT PERFORMED THE STUDY: Josephine Sotomayor IS THIS A REPEAT EXAM DURING THIS ENCOUNTER: Yes Same provider (reassess effusion size) REASON FOR EXAM: Other indication: pleural effusion VISUALIZED STRUCTURES: right posterior PERTINENT FINDINGS/IMPRESSION: Right pleural effusion (decreased in size from prior study) Exam complete
[2022-08-02] MEDS: Tiotropium Bromide-Respimat 10 PUFF INH 2 PUFF IH (07:53)
[2022-08-02] MEDS: Potassium Chloride 20 MEQ TABCR PO ×2 (09:00→20:41)
[2022-08-02] MEDS: Furosemide 40 MG TAB PO (09:00)
[2022-08-02] MEDS: MAGNESIUM SULFATE 2 GM/50 ML BAG IVPB (09:00)
[2022-08-02] MEDS: Tamsulosin 0.4 MG CAPCR PO (09:00)
[2022-08-02] MEDS: buPROPion-CR 150 MG TABCR PO (09:01)
[2022-08-02] MEDS: Cholecalciferol (Vitamin D3) 1,000 UNIT TAB 1000 UNITS PO (09:01)
[2022-08-02] MEDS: Amiodarone 200 MG TAB PO (09:01)
[2022-08-02] MEDS: Metoprolol CR 50 MG TABCR 100 MG PO (09:01)
--- NOTE | 2022-08-02 09:50 | PDOC.CMPRO ---
Date of service: 08/02/22 Time of Service: 09:50 Care Management Progress Note Progress Note Text Progress Note Text: S/O:? Rajan was sitting up in a chair when CM met with him. He was pleasant and engaged easily with CM. Rajan informed CM that he is feeling much better than when he was first admitted. He stated that he is now agreeable to going to rehab. He feels that if he is to be able to walk again, he will have the best opportunity by doing so. Clinically, he is felling better and the pleural effusion has decreased. Anticipate he will be ready for discharge soon. A: 71 year old male admitted to [facility] on 07/30/22 for Pleural Effusion, Atrial Flutter P: PT recommends SNF vs. supervised home setting vs. HHPT based on ability to progress towards goals. Anticipate, Rajan will discharge to SNF for STR vs return home with new [facility] RN/PT/OT/[employer] services. He will follow up with his providers both locally and [place] [facility] [place] transport with a friend. CM will follow and assess for discharge needs.
--- NOTE | 2022-08-02 15:09 | PHA.REVIEW2 ---
Pharmacy Admission Review - Admission Clinical Review (Last Reviewed 07/30/22 @ 12:40 by Yovany Recio MD) Trapped lung (Acute) Respiratory failure with hypoxia (Acute) Pleural effusion (Acute) Weakness (Acute) Hypoxemia (Acute) Caregiver stress (Acute) History of lung cancer (Acute) Atrial flutter (Acute) seasonal Allergy (Uncoded 07/30/22 12:03) Resuscitation Status Full Code Height 5 ft 8 in Weight 67.812 kg - Renal Dosing Renal Dosing: BUN 27 mg/dL (7-18) H 08/02/22 06:25 Creatinine 1.2 mg/dL (0.70-1.30) 08/02/22 06:25 Medications needing adjustments: Reviewed List of meds needing interventions: eCrCl 53.4 ml/min, all current orders dosed appropriately - Anticoagulation Anticoagulation: Hgb 14.4 g/dL (13.5-17.5) 07/30/22 12:00 Hct 46.6 % (40.0-50.0) 07/30/22 12:00 Plt Count 238 10^3/uL (130-400) 07/30/22 12:00 INR 1.7 (0.9-1.1) H 07/31/22 07:25 Creatinine 1.2 mg/dL (0.70-1.30) 08/02/22 06:25 Therapeutic Anticoagulation: Intervened Medications: Rivaroxaban (restarted xarelto per Dr. Sotomayor as thoracentesis was no longer happening) - Opiate Usage Evaluate Pain Scale/Pains Meds: N/A - Relevant Labs Sodium 140 mmol/L (136-145) 08/02/22 06:25 Potassium 3.6 mmol/L (3.5-5.1) 08/02/22 06:25 Chloride 102 mmol/L (98-107) 08/02/22 06:25 Phosphorus 2.5 mg/dL (2.6-4.7) L 07/30/22 12:00 Magnesium 1.7 mg/dL (1.8-2.4) L 08/02/22 06:25 Electrolytes, C-Reactive P, ESR: Reviewed (po mag ordered) - DM Control DM Control: Glucose 103 mg/dL (74-106) 08/02/22 06:25 DM Control: N/A - Cardiac Review Cardiac Review: Troponin I Cancelled 07/30/22 13:23 NT-Pro-B Natriuret Pep 76713 pg/mL (<300) H 07/30/22 18:50 BP, HR, EF%: Reviewed List meds needing interventions: decreased EF, metoprolol er 100mg ordered (was only on 50mg at home per recent cardio note) - Qtc Review QTc: Reviewed If Elevated, List meds needing intervention: QTc 512 on admission -- hydroxychloroquine was held on admission, patient has been on both amiodarone and hydroxychloroquine at home - IV to PO Switch IV Medications: Reviewed - Home Meds Home Med List reviewed: Reviewed - Current meds Current Medication Order Review: Reviewed
--- NOTE | 2022-08-02 16:33 | W.PM.PROGNOT ---
Date of Service Date of service: 08/02/22 Time of Service: 16:33 Assessment and Plan Assessment and plan (1) Pleural effusion: Status: Acute Assessment and plan: In setting of decreased LVEF and the intraventricular septum was not moving well, per Dr Sotomayor. Likely transudative due to heart failure. No formal echocardiography available at [facility] until 08/06/22. Continue PO furosemide. Formal echocardiogram as outpatient. (2) Atrial flutter: Status: Acute Assessment and plan: Continue metoprolol, xarelto. (3) Non-small cell carcinoma of lung: Assessment and plan: S/P left upper lobe lobectomy. F/u as outpatient. 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 His current QTc is 0.48. Resume plaquenil. (5) COVID-19: Assessment and plan: Not on this admission. H/O Covid in May of this year. (6) Trapped lung: Status: Acute Assessment and plan: L lung. h/[place] [facility] Not related to R-sided pleural effusion. F/u as outpatient. (7) Discharge planning issues: Status: Acute Assessment and plan: Full code. C/s PT. Patient has concerns about being able to be taken care of at home. Could be medically dischargeable as early as tomorrow. Discussed with Dr Sotomayor. (8) DVT prophylaxis: Status: Acute Assessment and plan: On therapeutic xarelto. Subjective Subjective Interval history since last seen: Mr Marquez states that he is feeling better. He is on 2 L of O2 by NC saturating 99%. He was on 3L at home. Denies dizziness, chest pain, shortness of breath, nausea. States he hasn't been walking. We agreed I would consult PT. Exam Narrative Exam Narrative: General: pleasant elderly male who is seated in a chair, watching TV HEENT: EOMI, MMM Heart: RRR, no m/r/g Lungs: diminished breath sounds at B bases, R>L Abdomen: soft, nontender, nondistended Extremities: no edema BLEs Objective Last Vital Signs Temp 35.3 C L 08/02/22 14:53 Pulse 107 H 08/02/22 14:53 Resp 18 08/02/22 14:53 BP 100/70 08/02/22 14:53 Pulse Ox 99 08/02/22 14:53 Laboratory Results - last 24 hr 08/02/22 06:25 Sodium 140 Potassium 3.6 Chloride 102 Carbon Dioxide 32.4 H Anion Gap 5.6 BUN 27 H Creatinine 1.2 Est GFR (CKD-EPI 2020) 64.25 Glucose 103 Calcium 8.9 Magnesium 1.7 L PAWSS Have you Been Recently Intoxicated or Drunk Within the Last 30 days?: No Have you Ever Experienced Previous Episodes of Alcohol Withdrawal?: No Have you ever Experienced Withdrawal Seizures?: No Have you ever Experienced Delirium Tremens(DT)s?: No Have you ever undergone Alcohol Rehabilitation Treatment (i.e, inpt ot outpatient treatment programs)?: No Have you ever Experienced Blackouts?: No Have you ever Combined Alcohol with other Downers within the last 90 days?: No Have you ever Combined Alcohol with any other Substance of Abuse during the last 90 days?: Yes Positive Blood Alcohol level on Presentation? [PCS.BAL]: No Evidence of Increased Autonomic Activity (i.e. HR>120, tremor, sweating, agitation, nausea)?: No Result: 2 Time Spent with Patient Time Spent with Patient: 25-34 minutes Time was spent: preparing to see the patient(eg.review tests), obtaining and/or reviewing separately otained hiistory, ordering medications,tests, procedures, referring, communicating with other health career consultant, indepentently interpreting results, counseling the patient and care coordination
[2022-08-02] MEDS: Rivaroxaban 10 MG TABLET 20 MG PO (17:12)
[2022-08-02] MEDS: Hydroxychloroquine 200 MG TAB PO (18:28)
[2022-08-02] MEDS: Normal Saline Flush 10 ML SYR IVP (20:41)
[2022-08-02] MEDS: Magnesium Oxide 400 MG TAB PO (22:04)
[2022-08-03 03:25] VITALS: BP 99/65; PULSE 108; RESP 18; TEMP 36.6; O2SAT 96
[2022-08-03 06:23] LABS: Abs Immature Grans 0.03 10^3/uL (0.0-0.06); Absolute Basophil Count 0.05 10^3/uL (0.0-0.2); Absolute Eosinophil Count 0.32 10^3/uL (0.0-0.7); Absolute Lymphocyte Count 1.32 10^3/uL (1.2-3.4); Absolute Monocyte Count 0.79 10^3/uL (0.1-0.8); Absolute Neutrophil Count 5.46 10^3/uL (1.2-6.7); Basophils % 0.6; HCT 40.2 % (40.0-50.0); HGB 12.9 g/dL (13.5-17.5); Immature Grans % 0.4; Lymphocytes % 16.6; MCH 27.4 pg (27.0-33.0); MCHC 32.1 % (32.0-36.0); MCV 85 fL (80-95); MPV 9.5 fL (8.0-11.0); Monocytes % 9.9; Neutrophils % 68.5; Platelet Count 181 10^3/uL (130-400); RBC 4.71 10^6/uL (4.36-5.78); RDW 15.8 % (11.8-14.1); RDW-SD 49.7 fL; WBC 7.97 10^3/uL (4.4-10.8)
[2022-08-03 06:52] LABS: Anion Gap 6.3 mmol/L (3-11); BUN 27 mg/dL (7-18); C-Reactive Protein 1.23 mg/dL (0.0-0.3); CO2 29.7 mmol/L (21.0-32.0); Calcium 9.1 mg/dL (8.5-10.1); Chloride 100 mmol/L (98-107); Estimated GFR 79.97 (mL/min/1.73m2); Glucose 92 mg/dL (74-106); Magnesium 1.8 mg/dL (1.8-2.4); Potassium 3.9 mmol/L (3.5-5.1); Sodium 136 mmol/L (136-145)
[2022-08-03 07:00] VITALS: PULSE 102
--- NOTE | 2022-08-03 07:13 | W.PULMPROG ---
Assessment and Plan Assessment and plan (1) Pleural effusion: Status: Acute (2) History of lung cancer: Status: Acute (3) Respiratory failure with hypoxia: Status: Acute (4) Trapped lung: Status: Acute (5) Atrial flutter: Status: Acute Assessment and plan: This is a 71 yo admitted for progressive weakness and a new large right sided pleural effusion. On CT scan the pleural space appears simple - similar to the small right sided effusion seen at his last clinic visit. He does have a left trapped lung with hydropneumothorax s/p decortication - completed by his thoracic surgeon Dr. Gutiérrez at [facility]. On admission POCUS his EF looked decreased with hypokinesis to akinesis of the septal wall with a generously sized RV. His IVC was plethoric and large. His last echo at [facility] (05/03) was unable to accurately comment on EF due to his tachyarrythmia, but an echo from 09/2021 did not find a decreased EF, which makes me think this is a recent event. Given the focal wall issues, I do worry if he had an ischemic event which lead to this. On my initial assessment of the effusion it appeared simple and was certainly amenable to thoracentesis, however I did think it was related to his diminished EF and since he was on A/C and clinically stable, I opted to recommend diuresis and not perform thoracentesis. On POCUS assessment today of the effusion, it is significantly smaller in size. I do think he should be discharged on a diuretic and have a formal echo completed to confirm my prior POCUS imaging. If the EF on formal echo is returned to normal, the low EF likely was reflective of a volume overloaded state. Right pleural effusion - effusion has decreased in size - decreased EF on POCUS, effusion is likely transudative with a cardiac etiology - would cut back on diuretic dose given extreme negative balance yesterday - O2 can likely be discontinued Left trapped lung - s/p mechanical decortication and pleurodesis at [facility] - now with hydropneumothorax of little significance A. flutter - Xarelto - continue rate control General Date Of Service Date of service: 08/03/22 Time of Service: 07:13 Reason for Consult: Pleural Effusion Subjective Note Note: Rajan is feeling well and is wondering if it is time for him to go home. He has reservations about his strength and ability to care for himself without assistance at home. I removed his O2 this morning and his O2 sats stayed well over 95%. Exam Narrative Exam Narrative: Gen: NAD, normal respiratory effort, well-nourished HENT: PERRL Chest: No respiratory distress, normal appearance of chest, clear to auscultation bilaterally, no crackles or wheezes, normal inspiratory effort Heart: regular rate and rhythym, no murmurs, rubs or gallops Abdomen: Non-distended, soft, non tender Extremities: No clubbing, edema Neuro: AAOx3 , non focal Psych: cooperative, appropriate mental affect Objective Last Vital Signs Temp 36.6 C 08/03/22 03:25 Pulse 108 H 08/03/22 03:25 Resp 18 08/03/22 03:25 BP 99/65 L 08/03/22 03:25 Pulse Ox 96 08/03/22 03:25 Laboratory Results - last 24 hr 08/02/22 08/03/22 08/03/22 06:25 05:55 05:55 WBC 7.97 RBC 4.71 Hgb 12.9 L Hct 40.2 MCV 85 D MCH 27.4 MCHC 32.1 RDW 15.8 H Plt Count 181 MPV 9.5 Immature Gran % 0.4 Neutrophils % 68.5 Lymphocytes % 16.6 Monocytes % 9.9 Eosinophils % 4.0 Basophils % 0.6 Nucleated RBC % 0.0 Absolute Neutrophils 5.46 Absolute Lymphocytes 1.32 Absolute Monocytes 0.79 Absolute Eosinophils 0.32 Absolute Basophils 0.05 Sodium 140 136 Potassium 3.6 3.9 Chloride 102 100 Carbon Dioxide 32.4 H 29.7 Anion Gap 5.6 6.3 BUN 27 H 27 H Creatinine 1.2 1.0 Est GFR (CKD-EPI 2020) 64.25 79.97 Glucose 103 92 Calcium 8.9 9.1 Magnesium 1.7 L 1.8 C-Reactive Protein 1.23 H Results Medications Medications: Active Medications Generic Name Dose Route Start Last Admin Trade Name Freq PRN Reason Stop Dose Admin Acetaminophen 0 mg 07/30/22 16:43 Acetaminophen 325 Mg Tab PO Q4H PRN PRN Al Hydrox/Mg Hydrox/Simethicone 30 ml 07/30/22 16:43 Mylanta Suspension 30 Ml Cup PO Q2H PRN PRN Albuterol Sulfate 2.5 mg 07/30/22 16:38 Albuterol 2.5 Mg/3 Ml Inh Soln Vial UPD Q2H PRN PRN Amiodarone HCl 200 mg 07/31/22 08:30 08/02/22 09:01 Amiodarone 200 Mg Tab PO 200 mg DAILY [facility] Administration Bupropion HCl 150 mg 07/31/22 08:30 08/02/22 09:01 Bupropion-Cr 150 Mg Tabcr PO 150 mg QAM [facility] Administration Cholecalciferol 1,000 units 07/31/22 08:30 08/02/22 09:01 Cholecalciferol (Vitamin D3) 1,000 Unit Tab PO 1,000 units DAILY [facility] Administration Dimethicone/Zinc Oxide 0 gm 07/30/22 16:38 Brittany Protect Cream 142 Gm Tube TP PRN PRN Furosemide 40 mg 08/01/22 08:30 08/02/22 09:00 Furosemide 40 Mg Tab PO 40 mg DAILY [facility] Administration Hydroxychloroquine Sulfate 200 mg 08/02/22 18:00 08/02/22 18:28 Hydroxychloroquine 200 Mg Tab PO 200 mg DAILY [facility] Administration Magnesium Oxide 400 mg 08/01/22 22:00 08/02/22 22:04 Magnesium Oxide 400 Mg Tab PO 400 mg HS [facility] Administration Metoprolol Succinate 100 mg 07/31/22 08:30 08/02/22 09:01 Metoprolol Cr 50 Mg Tabcr PO 100 mg DAILY [facility] Administration Polyethylene Glycol 17 gm 07/30/22 16:38 07/30/22 20:59 Polyethylene Glycol 3350 17 Gm Packet PO 17 gm DAILY PRN PRN Administration Constipation Potassium Chloride 20 meq 07/31/22 20:00 08/02/22 20:41 Potassium Chloride 20 Meq Tabcr PO 20 meq BID [facility] Administration Rivaroxaban 20 mg 08/02/22 17:00 08/02/22 17:12 Rivaroxaban 10 Mg Tablet PO 20 mg DAILY@1700 [facility] Administration Sodium Chloride 0 ml 07/30/22 20:20 08/02/22 20:41 Normal Saline Flush 10 Ml Syr IVP 10 ml PRN PRN Administration Tamsulosin HCl 0.4 mg 07/31/22 08:30 08/02/22 09:00 Tamsulosin 0.4 Mg Capcr PO 0.4 mg DAILY [facility] Administration Tiotropium Beatrice 2 puff 07/31/22 08:30 08/02/22 07:53 Tiotropium Beatrice-Respimat 10 Puff Inh IH 2 puffs DAILY [facility] Administration Allergies seasonal Allergy (Uncoded 07/30/22 12:03) Labs 08/03/22 05:55 08/03/22 05:55 Labs: Laboratory Tests Range/Units 07/30/22 07/30/22 07/30/22 12:00 12:00 12:00 WBC (4.4-10.8) 10^3/uL 7.73 RBC (4.36-5.78) 10^6/uL 5.26 Hgb (13.5-17.5) g/dL 14.4 Hct (40.0-50.0) % 46.6 MCV (80-95) fL 89 MCH (27.0-33.0) pg 27.4 MCHC (32.0-36.0) % 30.9 L RDW (11.8-14.1) % 16.1 H Plt Count (130-400) 10^3/uL 238 MPV (8.0-11.0) fL 9.3 Immature Gran % 0.3 Neutrophils % 78.2 Lymphocytes % 11.8 Monocytes % 8.5 Eosinophils % 0.8 Basophils % 0.4 Nucleated RBC % (0.0-0.3) % 0.0 Absolute Neutrophils (1.2-6.7) 10^3/uL 6.05 Absolute Lymphocytes (1.2-3.4) 10^3/uL 0.91 L Absolute Monocytes (0.1-0.8) 10^3/uL 0.66 Absolute Eosinophils (0.0-0.7) 10^3/uL 0.06 Absolute Basophils (0.0-0.2) 10^3/uL 0.03 PT (9.3-11.0) sec INR (0.9-1.1) D-Dimer Cancelled Sodium (136-145) mmol/L 136 Potassium (3.5-5.1) mmol/L 3.8 Chloride (98-107) mmol/L 99 Carbon Dioxide (21.0-32.0) mmol/L 29.2 Anion Gap (3-11) mmol/L 7.8 BUN (7-18) mg/dL 19 H Creatinine (0.70-1.30) mg/dL 1.0 Est GFR (CKD-EPI 2020) (mL/min/1.73m2) 79.97 Glucose (74-106) mg/dL 91 Calcium (8.5-10.1) mg/dL 9.4 Phosphorus (2.6-4.7) mg/dL Magnesium (1.8-2.4) mg/dL 1.9 Total Bilirubin (0.2-1.0) mg/dL 0.9 AST (15-37) U/L 50 H ALT (16-63) U/L 93 H Alkaline Phosphatase (46-116) U/L 97 Creatine Kinase Cancelled Troponin I (<or=60) ng/L < 50 C-Reactive Protein (0.0-0.3) mg/dL NT-Pro-B Natriuret Pep (<300) pg/mL Total Protein (6.4-8.2) g/dL 7.7 Albumin (3.4-5.0) g/dL 3.5 Procalcitonin ng/mL TSH (0.36-3.74) uIU/mL Free T4 (0.76-1.46) ng/dL Add-On Test Request Range/Units 07/30/22 07/30/22 07/30/22 12:00 12:00 12:00 WBC (4.4-10.8) 10^3/uL RBC (4.36-5.78) 10^6/uL Hgb (13.5-17.5) g/dL Hct (40.0-50.0) % MCV (80-95) fL MCH (27.0-33.0) pg MCHC (32.0-36.0) % RDW (11.8-14.1) % Plt Count (130-400) 10^3/uL MPV (8.0-11.0) fL Immature Gran % Neutrophils % Lymphocytes % Monocytes % Eosinophils % Basophils % Nucleated RBC % (0.0-0.3) % Absolute Neutrophils (1.2-6.7) 10^3/uL Absolute Lymphocytes (1.2-3.4) 10^3/uL Absolute Monocytes (0.1-0.8) 10^3/uL Absolute Eosinophils (0.0-0.7) 10^3/uL Absolute Basophils (0.0-0.2) 10^3/uL PT (9.3-11.0) sec INR (0.9-1.1) D-Dimer Sodium (136-145) mmol/L Potassium (3.5-5.1) mmol/L Chloride (98-107) mmol/L Carbon Dioxide (21.0-32.0) mmol/L Anion Gap (3-11) mmol/L BUN (7-18) mg/dL Creatinine (0.70-1.30) mg/dL Est GFR (CKD-EPI 2020) (mL/min/1.73m2) Glucose (74-106) mg/dL Calcium (8.5-10.1) mg/dL Phosphorus (2.6-4.7) mg/dL 2.5 L Magnesium (1.8-2.4) mg/dL Total Bilirubin (0.2-1.0) mg/dL AST (15-37) U/L ALT (16-63) U/L Alkaline Phosphatase (46-116) U/L Creatine Kinase Troponin I (<or=60) ng/L C-Reactive Protein (0.0-0.3) mg/dL NT-Pro-B Natriuret Pep (<300) pg/mL Total Protein (6.4-8.2) g/dL Albumin (3.4-5.0) g/dL Procalcitonin ng/mL TSH (0.36-3.74) uIU/mL 6.02 H Free T4 (0.76-1.46) ng/dL 1.30 Add-On Test Request DONE DONE Range/Units 07/30/22 07/30/22 07/30/22 12:54 13:23 18:50 WBC (4.4-10.8) 10^3/uL RBC (4.36-5.78) 10^6/uL Hgb (13.5-17.5) g/dL Hct (40.0-50.0) % MCV (80-95) fL MCH (27.0-33.0) pg MCHC (32.0-36.0) % RDW (11.8-14.1) % Plt Count (130-400) 10^3/uL MPV (8.0-11.0) fL Immature Gran % Neutrophils % Lymphocytes % Monocytes % Eosinophils % Basophils % Nucleated RBC % (0.0-0.3) % Absolute Neutrophils (1.2-6.7) 10^3/uL Absolute Lymphocytes (1.2-3.4) 10^3/uL Absolute Monocytes (0.1-0.8) 10^3/uL Absolute Eosinophils (0.0-0.7) 10^3/uL Absolute Basophils (0.0-0.2) 10^3/uL PT (9.3-11.0) sec INR (0.9-1.1) D-Dimer 1300 H Sodium (136-145) mmol/L Potassium (3.5-5.1) mmol/L Chloride (98-107) mmol/L Carbon Dioxide (21.0-32.0) mmol/L Anion Gap (3-11) mmol/L BUN (7-18) mg/dL Creatinine (0.70-1.30) mg/dL Est GFR (CKD-EPI 2020) (mL/min/1.73m2) Glucose (74-106) mg/dL Calcium (8.5-10.1) mg/dL Phosphorus (2.6-4.7) mg/dL Magnesium (1.8-2.4) mg/dL Total Bilirubin (0.2-1.0) mg/dL AST (15-37) U/L ALT (16-63) U/L Alkaline Phosphatase (46-116) U/L Creatine Kinase Cancelled Troponin I (<or=60) ng/L Cancelled C-Reactive Protein (0.0-0.3) mg/dL NT-Pro-B Natriuret Pep (<300) pg/mL Total Protein (6.4-8.2) g/dL Albumin (3.4-5.0) g/dL Procalcitonin ng/mL TSH (0.36-3.74) uIU/mL Free T4 (0.76-1.46) ng/dL Add-On Test Request DONE Range/Units 07/30/22 07/30/22 07/31/22 18:50 18:50 05:58 WBC (4.4-10.8) 10^3/uL RBC (4.36-5.78) 10^6/uL Hgb (13.5-17.5) g/dL Hct (40.0-50.0) % MCV (80-95) fL MCH (27.0-33.0) pg MCHC (32.0-36.0) % RDW (11.8-14.1) % Plt Count (130-400) 10^3/uL MPV (8.0-11.0) fL Immature Gran % Neutrophils % Lymphocytes % Monocytes % Eosinophils % Basophils % Nucleated RBC % (0.0-0.3) % Absolute Neutrophils (1.2-6.7) 10^3/uL Absolute Lymphocytes (1.2-3.4) 10^3/uL Absolute Monocytes (0.1-0.8) 10^3/uL Absolute Eosinophils (0.0-0.7) 10^3/uL Absolute Basophils (0.0-0.2) 10^3/uL PT (9.3-11.0) sec INR (0.9-1.1) D-Dimer Sodium (136-145) mmol/L 138 Potassium (3.5-5.1) mmol/L 4.1 Chloride (98-107) mmol/L 101 Carbon Dioxide (21.0-32.0) mmol/L 30.9 Anion Gap (3-11) mmol/L 6.1 BUN (7-18) mg/dL 21 H Creatinine (0.70-1.30) mg/dL 1.1 Est GFR (CKD-EPI 2020) (mL/min/1.73m2) 71.32 Glucose (74-106) mg/dL 91 Calcium (8.5-10.1) mg/dL 8.7 Phosphorus (2.6-4.7) mg/dL Magnesium (1.8-2.4) mg/dL Total Bilirubin (0.2-1.0) mg/dL 0.8 AST (15-37) U/L 36 ALT (16-63) U/L 67 H Alkaline Phosphatase (46-116) U/L 80 Creatine Kinase Troponin I (<or=60) ng/L C-Reactive Protein (0.0-0.3) mg/dL NT-Pro-B Natriuret Pep (<300) pg/mL H Total Protein (6.4-8.2) g/dL 6.2 L Albumin (3.4-5.0) g/dL 2.8 L Procalcitonin ng/mL 0.1 TSH (0.36-3.74) uIU/mL Free T4 (0.76-1.46) ng/dL Add-On Test Request Range/Units 07/31/22 08/01/22 08/02/22 07:25 06:25 06:25 WBC (4.4-10.8) 10^3/uL RBC (4.36-5.78) 10^6/uL Hgb (13.5-17.5) g/dL Hct (40.0-50.0) % MCV (80-95) fL MCH (27.0-33.0) pg MCHC (32.0-36.0) % RDW (11.8-14.1) % Plt Count (130-400) 10^3/uL MPV (8.0-11.0) fL Immature Gran % Neutrophils % Lymphocytes % Monocytes % Eosinophils % Basophils % Nucleated RBC % (0.0-0.3) % Absolute Neutrophils (1.2-6.7) 10^3/uL Absolute Lymphocytes (1.2-3.4) 10^3/uL Absolute Monocytes (0.1-0.8) 10^3/uL Absolute Eosinophils (0.0-0.7) 10^3/uL Absolute Basophils (0.0-0.2) 10^3/uL PT (9.3-11.0) sec 16.8 H INR (0.9-1.1) 1.7 H D-Dimer Sodium (136-145) mmol/L 141 140 Potassium (3.5-5.1) mmol/L 2.9 L D 3.6 Chloride (98-107) mmol/L 102 102 Carbon Dioxide (21.0-32.0) mmol/L 33.8 H 32.4 H Anion Gap (3-11) mmol/L 5.2 5.6 BUN (7-18) mg/dL 25 H 27 H Creatinine (0.70-1.30) mg/dL 1.3 1.2 Est GFR (CKD-EPI 2020) (mL/min/1.73m2) 58.37 64.25 Glucose (74-106) mg/dL 116 H 103 Calcium (8.5-10.1) mg/dL 9.0 8.9 Phosphorus (2.6-4.7) mg/dL Magnesium (1.8-2.4) mg/dL 1.7 L 1.7 L Total Bilirubin (0.2-1.0) mg/dL AST (15-37) U/L ALT (16-63) U/L Alkaline Phosphatase (46-116) U/L Creatine Kinase Troponin I (<or=60) ng/L C-Reactive Protein (0.0-0.3) mg/dL NT-Pro-B Natriuret Pep (<300) pg/mL Total Protein (6.4-8.2) g/dL Albumin (3.4-5.0) g/dL Procalcitonin ng/mL TSH (0.36-3.74) uIU/mL Free T4 (0.76-1.46) ng/dL Add-On Test Request Range/Units 08/03/22 08/03/22 05:55 05:55 WBC (4.4-10.8) 10^3/uL 7.97 RBC (4.36-5.78) 10^6/uL 4.71 Hgb (13.5-17.5) g/dL 12.9 L Hct (40.0-50.0) % 40.2 MCV (80-95) fL 85 D MCH (27.0-33.0) pg 27.4 MCHC (32.0-36.0) % 32.1 RDW (11.8-14.1) % 15.8 H Plt Count (130-400) 10^3/uL 181 MPV (8.0-11.0) fL 9.5 Immature Gran % 0.4 Neutrophils % 68.5 Lymphocytes % 16.6 Monocytes % 9.9 Eosinophils % 4.0 Basophils % 0.6 Nucleated RBC % (0.0-0.3) % 0.0 Absolute Neutrophils (1.2-6.7) 10^3/uL 5.46 Absolute Lymphocytes (1.2-3.4) 10^3/uL 1.32 Absolute Monocytes (0.1-0.8) 10^3/uL 0.79 Absolute Eosinophils (0.0-0.7) 10^3/uL 0.32 Absolute Basophils (0.0-0.2) 10^3/uL 0.05 PT (9.3-11.0) sec INR (0.9-1.1) D-Dimer Sodium (136-145) mmol/L 136 Potassium (3.5-5.1) mmol/L 3.9 Chloride (98-107) mmol/L 100 Carbon Dioxide (21.0-32.0) mmol/L 29.7 Anion Gap (3-11) mmol/L 6.3 BUN (7-18) mg/dL 27 H Creatinine (0.70-1.30) mg/dL 1.0 Est GFR (CKD-EPI 2020) (mL/min/1.73m2) 79.97 Glucose (74-106) mg/dL 92 Calcium (8.5-10.1) mg/dL 9.1 Phosphorus (2.6-4.7) mg/dL Magnesium (1.8-2.4) mg/dL 1.8 Total Bilirubin (0.2-1.0) mg/dL AST (15-37) U/L ALT (16-63) U/L Alkaline Phosphatase (46-116) U/L Creatine Kinase Troponin I (<or=60) ng/L C-Reactive Protein (0.0-0.3) mg/dL 1.23 H NT-Pro-B Natriuret Pep (<300) pg/mL Total Protein (6.4-8.2) g/dL Albumin (3.4-5.0) g/dL Procalcitonin ng/mL TSH (0.36-3.74) uIU/mL Free T4 (0.76-1.46) ng/dL Add-On Test Request
[2022-08-03] MEDS: Tiotropium Bromide-Respimat 10 PUFF INH 2 PUFF IH (07:40)
[2022-08-03 07:42] VITALS: O2SAT 98
[2022-08-03 07:48] VITALS: BP 100/72; PULSE 109; RESP 20; TEMP 36.5; O2SAT 97
[2022-08-03] MEDS: Metoprolol CR 50 MG TABCR 100 MG PO (08:37)
[2022-08-03] MEDS: Potassium Chloride 20 MEQ TABCR PO (08:37)
[2022-08-03] MEDS: Cholecalciferol (Vitamin D3) 1,000 UNIT TAB 1000 UNITS PO (08:37)
[2022-08-03] MEDS: Hydroxychloroquine 200 MG TAB PO (08:37)
[2022-08-03] MEDS: Amiodarone 200 MG TAB PO (08:37)
[2022-08-03] MEDS: buPROPion-CR 150 MG TABCR PO (08:37)
[2022-08-03] MEDS: Tamsulosin 0.4 MG CAPCR PO (08:38)
--- NOTE | 2022-08-03 09:07 | CMPROGNOTE_ITS ---
Date of service: 08/03/22 Time of Service: 09:07 Care Management Progress Note Progress Note Text Progress Note Text: S/O:? Rajan was sitting up in a chair when CM met with him. He was pleasant and engaged easily with CM. Rajan stated that he is feeling better and would like to be discharged home. Yesterday Rajan stated that he would like to go to a SNF for short term rehab prior to returning home. While in the ED Rajan was evaluated by PT and they recommended SNF vs home health PT. PT had not seen him as an inpatient as they just received the referral for inpatient assessment yesterday. When they did his evaluation today, the recommendation was for home health PT. A: 71 year old male admitted to [facility] on 07/30/22 for Pleural Effusion, Atrial Flutter P: PT recommended SNF vs. supervised home setting vs. HHPT based on ability to progress towards goals when they evaluated Raajn in the ED. When evaluated again today they recommended home health PT. Rajan will likely discharge home with home health services for nursing and PT. He will follow up with his providers both locally and at [facility] and will transport with a friend. CM will follow and assess for discharge needs.
--- NOTE | 2022-08-03 11:20 | RESPIRATORY ---
Patient wears home oxygen @ 3LPM through [facility].
[2022-08-03 11:24] VITALS: BP 99/70; PULSE 87; RESP 18; TEMP 36.3; O2SAT 97
[2022-08-03 13:05] VITALS: PULSE 103; PULSE 107; O2SAT 94; O2SAT 96; O2SAT 97
--- NOTE | 2022-08-03 14:59 | DSE_ITS ---
Date of service: 08/03/22 Time of Service: 15:03 DS: Diagnosis Discharge Diagnosis (1) Respiratory failure with hypoxia: Status: Resolved (2) CHF (congestive heart failure): Status: Suspected Asessment and Plan: Suspected reduced LVEF based on POCUS; formal echocardiography ordered as outpatient. (3) Pleural effusion: Status: Acute Asessment and Plan: right sided (4) History of lung cancer: Status: Acute (5) Trapped lung: Status: Acute (6) Atrial flutter: Status: Chronic (7) Weakness: Status: Acute Discharge Plan Disposition Patient Disposition: Home W/Home Health Services Condition: Improving Discharge Details Reason For Visit: Pleural Effusion,Acute on Chron Hypoxic Resp Failu Admit Date/Time: 07/30/22 16:38 Admit Provider: Jose Cespedes Attending Provider: Jose Cespedes Primary Care Provider: Tami Olivia [facility] Course Hospital Course: Mr Marquez is a 71 year old male with PMHx of non-small cell lung cancer s/p lobectomy with recurrent L pleural effusions requiring left decortication with residual hydro-pneumothorax and trapped lung, as well as H/o mild COPD (unclear if the patient is on oxygen - he is not sure), atrial flutter on xarelto, amiodarone, who was admitted to [facility] hospitalist service on 07/30/22 with acute hypoxic respiratory failure requiring up to 3L of O2 by CO. He was evaluated by Dr Sotomayor of pulmonology for findings of a new large right pleural effusion, who at the time recommended diuresis and planned for a possible thoracenthesis, holding his xarelto. His POCUS ultrasound of the heart showed a reduced ejection fraction and septal wall hypokinesis, suggesting a possible cardiac etiology to the pleural effusion. Formal echocardiography was not available in our facility this week. The patient responded so well to the diuretic therapy that he had an almost 19 L net negative fluid balance. He is euvolemic today, not requiring oxygen on ambulation, though he may still use it for comfort if he indeed has it at home (our RT is verifying this right now, but that information is not available to me at the time of discharge). He is being discharged home with a p rescription for furosemide 20 mg only if he notices that he has gained 3 lbs in 3 days. He does have a digital scale at home and verbalized understanding of instructions of weighing himself every day and keeping a log of his weights. He is being discharged with a referral for an echocardiogram. He is being ordered new home health nursing to help monitor his volume and respiratory status at home. 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 He should follow up with his PCP in 1-2 weeks and with pulmonology. He should ambulate with a walker. Home health nursing are to draw bloodwork in 1 week (BMP, magnesium); results are to go to the patient's PCP. He is medically stable for discharge home today with above instructions. Care for patient as well as completion of his discharge summary on day of discharge took 60 minutes. Home Meds and New Rx's Prescriptions: New magnesium oxide 400 mg (241.3 mg magnesium) Tablet 400 mg PO HS Qty: 10 0RF potassium chloride [Klor-Con M20] 20 mEq Tablet,Er Particles/Crystals 20 meq PO DIRECTED Qty: 10 0RF Rx Instructions: take 1 tab on days that you take your as needed furosemide furosemide 20 mg tablet 20 mg PO DIRECTED Qty: 10 0RF Rx Instructions: Take 1 tab if you have noticed that you have gained 3 lbs in 3 days. (Also take your potassium on these days). Continued albuterol sulfate 0.63 mg/3 mL solution for nebulization 0.63 mg inhalation QID PRN (Reason: shortness of breath or wheezing) Qty: 90 12RF Spiriva Respimat 2.5 mcg/actuation mist 2 inh inhalation QAM Qty: 12 3RF amiodarone 200 mg tablet 200 mg PO DAILY calcium carbonate-vitamin D3 600 mg-20 mcg (800 unit) tablet 1 tab PO DAILY cholecalciferol (vitamin D3) 25 mcg (1,000 unit) capsule 25 mcg PO DAILY acetaminophen [Tylenol Arthritis Pain] 650 mg tablet extended release 1,300 mg PO DAILY metoprolol succinate 50 mg tablet extended release 24 hr 100 mg PO DAILY Qty: 90 3RF albuterol sulfate [ProAir HFA] 90 mcg/actuation HFA aerosol inhaler 2 puff inhalation Q6H PRN bupropion HCl 150 mg tablet sustained-release 12 hr 150 mg PO QAM tamsulosin 0.4 mg capsule 0.4 mg PO DAILY hydroxychloroquine 200 mg tablet 200 mg PO DAILY ferrous sulfate 28 mg iron Tablet 28 mg PO DAILY Xarelto 20 mg tablet 1 tab PO DAILY sildenafil 50 mg tablet 50 tab PO PRN PRN Patient Comments: TAKE 1/2 TO 1 TABLET BY MOUTH 30 MINUTES PRIOR TO SEXUAL ACTIVITY NEEDED. MAXIMUM DAILY DOSE 2 Discharge Instructions Instructions: Furosemide (By mouth), Heart Failure (DC), Pleural Effusion (DC), Low-Sodium Diet (DC) Additional Instructions: Return to the hospital with any fever, bleeding, chest pain, or worsening shortness of breath. Follow a low sodium diet. Weigh yourself daily and keep a log of your weights. Weigh yourself at the same time every day wearing the same amount of clothes (which could be no clothes). If you have gained 3 lbs in 3 days, take a dose of furosemide 20 mg daily. Take a potassium pill every time you take a dose of furosemide. Ambulate with a walker. Follow up with your PCP in 1-2 weeks. Follow up with your heavy media operator at [facility]. Follow up for an echocardiogram. 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 Home health nursing: bloodwork on 08/10/22: BMP, magnesium. Results to Dr Tami Olivia. Stand Alone Forms: Nursing Discharge Form Referrals: [facility] Diagnosic Imaging [Other] (Please call Saturday to make an appointment for Echocardiogram.) PULMONOLOGY,[facility] [OTHER] - (Please call Saturday to make a follow up appointment with your Pulmonolgist.) Tami Olivia [Primary Care Provider] - 08/16/22 1:00 pm (Your appoitment for 2:30pm on this day has be canceled please go to the 1:00pm appointment) Activity:: Activity as Tolerated Equipment/Supplies:: No Equipment Needed Diet:: Low Sodium Discharge Orders Discharge Orders: Discharge Order (Routine); Ordered 08/03/22 Ordered By: Linda Alicea Other Ambulatory Orders: US echocardiogram (Routine) Timeframe: 1 Week Facility: [facility] - Location: DIAGNOSTIC IMAGING Ordered By: Linda Alicea DS: Summary Time Spent with Patient providing and/or coordinating discharge services: Greater than 30 minutes Status at Discharge Functional status at discharge: uses cane/walker Overall status at discharge: patient is back to baseline Mental Status: mental status grossly normal Speech and Movement: speech and movement normal Mood: congruent mood Affect: normal affect Exam Narrative Exam Narrative: General: pleasant elderly male who is in bed, awake, A&Ox3, appears forgetful HEENT: EOMI, MMM Heart: RRR, no m/r/g, mildly tachycardic (low 100s). Lungs: Improved aeration B - CTAB Abdomen: soft, nontender, nondistended Extremities: no edema BLEs Psych Mental Status: mental status grossly normal Speech and Movement: speech and movement normal Mood: congruent mood Affect: normal affect DS: Data Vitals/I&O Vitals and I&O: Vital Signs Temperature 36.3 C L 08/03/22 11:24 Temperature Source Tympanic 08/03/22 11:24 Pulse 87 08/03/22 11:24 Pulse Rhythm Irregular 08/03/22 07:50 Pulse 96 H 07/31/22 16:00 Respiratory Rate 18 08/03/22 11:24 Respiratory Effort Normal 08/03/22 07:50 Respiratory Depth Shallow 08/03/22 07:50 Respiratory Pattern Normal 08/03/22 07:50 Blood Pressure 99/70 L 08/03/22 11:24 Blood Pressure Mean 98 08/01/22 00:56 Blood Pressure Position Supine 07/31/22 16:00 Pulse Oximetry 97 08/03/22 11:24 Oxygen Delivery Method Room Air 08/03/22 11:24 Oxygen Flow Rate 0 08/03/22 11:24 Pain Level 0 08/03/22 11:24 Comment 1 08/01/22 15:20 Intake & Output 08/02/22 08/03/22 08/03/22 23:59 11:59 23:59 Intake Total 50 / 280 240 / 240 Output Total 7320 / 7820 1375 / 1375 Balance -7270 / -7540 -1135 / -1135 Intake: IV 50 / 100 Oral 240 / 240 Output: Urine 7320 / 7820 1375 / 1375 Other: Urine Color Yellow Straw Urine Appearance Cloudy Clear Urine Odor Normal None Stool Size Large Stool Characteristics Formed Voiding Methods Urinal Diaper Incontinent Data Completed and Pending Completed studies during hospitalization [Text1]: CT head 07/30/22: 1. No acute intracranial process.? CTA cjest 07/30/22: 1. No evidence of a pulmonary embolism or thoracic aortic aneurysm. 2. New moderately large right pleural effusion and subjacent infiltrate which may represent atelectasis or pneumonia. 3. Persistent in capsulated left pleural fluid collection.? There is now air within the fluid collection.? Please correlate with patient's procedural/surgical history. 4. New left axillary adenopathy.? Metastatic disease should be considered. 5. Cardiomegaly and findings suggestive of heart right heart failure. CXR 08/02/22: 1. Persistent air-fluid collection in the left hemithorax.? The patient has known in capsulated left fluid collections. 2. Probable small right pleural effusion. 3. Patchy opacities in the left lung which may represent atelectasis or infiltrate.? Labs on day of discharge: Labs from last 24 hours 08/03/22 08/03/22 05:55 05:55 WBC 7.97 RBC 4.71 Hgb 12.9 L Hct 40.2 MCV 85 D MCH 27.4 MCHC 32.1 RDW 15.8 H Plt Count 181 MPV 9.5 Immature Gran % 0.4 Neutrophils % 68.5 Lymphocytes % 16.6 Monocytes % 9.9 Eosinophils % 4.0 Basophils % 0.6 Nucleated RBC % 0.0 Absolute Neutrophils 5.46 Absolute Lymphocytes 1.32 Absolute Monocytes 0.79 Absolute Eosinophils 0.32 Absolute Basophils 0.05 Sodium 136 Potassium 3.9 Chloride 100 Carbon Dioxide 29.7 Anion Gap 6.3 BUN 27 H Creatinine 1.0 Est GFR (CKD-EPI 2020) 79.97 Glucose 92 Calcium 9.1 Magnesium 1.8 C-Reactive Protein 1.23 H PFSH All Active Problems (Updated 08/03/22 @ 15:46 by Linda Alicea MD) DVT prophylaxis (Acute) Discharge planning issues (Acute) Trapped lung (Acute) Pleural effusion (Acute) Weakness (Acute) Hypoxemia (Acute) Alcohol use (Acute) Weakness (Acute) Caregiver stress (Acute) History of lung cancer (Acute) Supplemental oxygen dependent (Acute) Frequent falls (Acute) Advanced care planning/counseling discussion (Acute) Palliative care encounter (Acute) Tachycardia (Acute) Dyspnea and respiratory abnormalities (Acute) S/P thoracotomy (Acute) Atrial flutter (Chronic) Loculated pleural effusion (Acute) ADHD (Chronic) Panic disorder (Chronic) Alcohol abuse (Chronic) Depression (Chronic) Hypertension (Chronic) Smoker (Acute) Encounter for screening colonoscopy (Acute) S/P colonoscopy (Acute ~04/28/18) Colorectal polyp detected on colonoscopy (Acute ~04/28/18) Tubular adenoma Retinal hemorrhage (Acute) Emphysema lung (Acute) COPD (chronic obstructive pulmonary disease) (Chronic) Personal history of nicotine dependence (Acute) Pleural effusion (Acute) Medical History Afib Anemia BPH (benign prostatic hyperplasia) Carcinoma of left lung Cataract Chronic pain of right wrist Coronary artery disease COVID-19 Elevated antinuclear antibody (DEJON) level Elevated PSA Elevated serum creatinine Erectile dysfunction Essential tremor Fibrothorax Hearing loss Hearing loss, bilateral History of depression History of elevated antinuclear antibody (DEJON) Long-term use of high-risk medication Lung cancer Nicotine dependence, cigarettes, uncomplicated Non-small cell carcinoma of lung Oral pharyngeal candidiasis Pain in right wrist Pleural effusion, left Positive DEJON (antinuclear antibody) 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 Gutiérrez 03/2021 lung CA RH Social History Smoking/Tobacco Use Status: Former Tobacco Use Quit Date: 12/09/21 Smoking risk assessment performed?: Yes Alcohol Intake: former Drug use: Rarely Substance use type: marijuana Do you feel safe at home: Yes Do you feel safe in your relationship?: Yes Time Spent with Patient Time Spent with Patient: 45-69 minutes Time was spent: preparing to see the patient(eg.review tests), obtaining and/or reviewing separately otained hiistory, ordering medications,tests, procedures, referring, communicating with other health healthcare architect, indepentently interpreting results, counseling the patient and care coordination
--- NOTE | 2022-08-03 14:59 | PDOC.HHF2F_ITS ---
Home Health Referral Home Health Orders Clinical synopsis of why skilled professionals are needed: Patient admitted with a pleural effusion, responded to diuresis, felt to be due to CHF. Going home with instructions for daily weights and diuretics if he has gained 3 lbs in 3 days. Nursing to monitor weights, respiratory status. Medical diagnosis necessitation home health referral: CHF, pleural effusion. Registered Nurse: Check all that apply Instruct on new or changed medication(s)/assess compliance: Ordered Assess for exacerbation of medical condition, instruct patient/caregivers on signs and symptoms to report for early detection: Ordered Physical Therapist: Check all that apply Increase strength & endurance for safe mobility at home: Ordered To design/establish home maintenance program: Ordered Fall reduction therapy program for patient with history of frequent falls: Ordered Home safety evaluation and teaching/gait training including stair management (if applicable): Ordered Occupational Therapist: Evaluate and treat for patient unable to perform ADL/IADL/self-care: Ordered Preparation Department Supervisor: Assist with community resources: Ordered Assist with computer terminal operator care planning: Ordered Home Bound Status Requires the aid of supportive device (check all that apply): Walker Describe why leaving home would require a considerable and taxing effort: Requires frequent rest periods Encounter Date and Reason: I certify that a FTF encounter for this patient was performed on August 03, 2022 and that such encounter was related to the primary reason the patient requires home health services. The encounter was conducted in the following manner: * By me as the certifying physician, PRODUCT LISTER, PA or * By an inpatient physician, PRODUCT LISTER or PA during an inpatient stay who communicated findings to me, Certification And Authentication I certify that I composed the above information based on my clinical judgment relating to this patient's medical condition and, if applicable, clinical findings communicated to me by the NPP or inpatient physician who performed the FTF encounter. Name of Provider that will be monitoring home health services: Tami Paz
--- NOTE | 2022-08-10 16:27 | IN_ITS ---
Date of service: 08/03/22 Time of Service: 12:45 PT Notes Visit Reasons: Pleural Effusion,Acute on Chron Hypoxic Resp Failu Physical Therapy Inpatient Initial Evaluation Date: 08/03/2022 Referring Doctor: Linda Alicea MD PT Orders: PT CONSULT: Limited ability Precautions: Fall. Standard. Activity as tolerated. Patient Profile/Admitting Diagnosis:? Patient admitted for assessment of pleural effusion, generalized weakness, and hypoxemia with referral to physical therapy for safety consult for discharge. PMHX: All Active Problems?(Updated 07/30/22 @ 16:25 by Yovany Recio MD) Pleural effusion (Acute) Weakness (Acute) Hypoxemia (Acute) Alcohol use (Acute) Weakness (Acute) Caregiver stress (Acute) History of lung cancer (Acute) Supplemental oxygen dependent (Acute) Frequent falls (Acute) Advanced care planning/counseling discussion (Acute) Palliative care encounter (Acute) Tachycardia (Acute) Dyspnea and respiratory abnormalities (Acute) S/P thoracotomy (Acute) Atrial flutter (Acute) Loculated pleural effusion (Acute) ADHD (Chronic) Panic disorder (Chronic) Alcohol abuse (Chronic) Depression (Chronic) Hypertension (Chronic) Smoker (Acute) Encounter for screening colonoscopy (Acute) S/P colonoscopy (Acute ~04/28/18) Colorectal polyp detected on colonoscopy (Acute ~04/28/18) Tubular adenoma Retinal hemorrhage (Acute) Emphysema lung (Acute) COPD (chronic obstructive pulmonary disease) (Chronic) Personal history of nicotine dependence (Acute) Pleural effusion (Acute) Medical History? Afib Anemia BPH (benign prostatic hyperplasia) Carcinoma of left lung Cataract Chronic pain of right wrist Coronary artery disease COVID-19 Elevated antinuclear antibody (DEJON) level Elevated PSA Elevated serum creatinine Erectile dysfunction Essential tremor Fibrothorax Hearing loss Hearing loss, bilateral History of depression History of elevated antinuclear antibody (DEJON) Long-term use of high-risk medication Lung cancer Nicotine dependence, cigarettes, uncomplicated Non-small cell carcinoma of lung Oral pharyngeal candidiasis Pain in right wrist Pleural effusion, left Positive DEJON (antinuclear antibody) 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 History of appendectomy History of colonoscopy (~01/2022) S/P partial lobectomy of lung [facility] Dr. Gutiérrez 03/2021 lung CA RH Social History/Home Situation: Lives with a caregiver who, patient and patient's friend says, is trying to get out of the house.? This caregiver has done meal preparation,? laundry, and all house chores on top of providing needed physical assist for patient prior to today's admission. Equipment Owned/DME: FWW Subjective: Feels much more confident about going home with services today. Will have caregiver Eleanor providing needed support at home. Agreeable with PT services. Objective: General Observation: Supine in bed.? Mental Status: Alert and oriented as to person, place, time, and purpose. Able to pay attention, focus, and respond appropriately. Pain: Denies Vital Signs: WNL as closley monitored by nursing staff ROM: Right Upper Extremity: ? Shoulder Flexion WFL. Shoulder abduction WFL. Elbow flexion WFL. Wrist flexion WFL. Functional opening and closing of hand WFL. Left Upper Extremity:? Shoulder Flexion WFL. Shoulder abduction WFL. Elbow flexion WFL. Wrist flexion WFL. Functional opening and closing of hand WFL. Right Lower Extremity: Hip flexion WFL. Hip abduction WFL. Knee flexion WFL. Ankle dorsiflexion WFL. Ankle plantarflexion WFL. Left Lower Extremity: Hip flexion WFL. Hip abduction WFL. Knee flexion WFL. Ankle dorsiflexion WFL. Ankle plantarflexion WFL. Strength: Right Upper Extremity: Shoulder flexors 4-/5. Shoulder abductors 4-/5. Elbow flexors 4-/5. Elbow extensors 4-/5. [employer] Consultant strong. Left Upper Extremity: Shoulder flexors 4-/5. Shoulder abductors 4-/5. Elbow flexors 4-/5. Elbow extensors 4-/5. [employer] Consultant strong. Right Lower Extremity: Hip flexors 3+/5. Hip abductors 3+/5. Knee flexors 4-/5. Knee extensors 4-/5. Ankle dorsiflexors 4-/5. Ankle plantarflexors 4-/5. Left Lower Extremity: Hip flexors 3+/5. Hip abductors 3+/5. Knee flexors 4-/5. Knee extensors 4-/5. Ankle dorsiflexors 4-/5. Ankle plantarflexors 4-/5. Bed Mobility/Transfers: Rolling with moderate assist Supine to sit moderate assist Sit to supine moderate assist Sit to stand moderate assist Stand to sit moderate assist Gait: Instructed patient with level surface ambulation of 300 feet requiring stand by assist. Anjali decreased. Step height and length decreased and asymmetric.? Cues provided for walker management.? Balance: Static Sitting: Normal Dynamic Sitting: Normal Static Standing: Fair Dynamic Standing: Fair Special Tests: Mobility Limitations Standardized Measure [facility] 6 clicks Basic Mobility Inpatient Short Form: Raw Score: 22 ? CMS Score: 21% deficit? ? ? 4-Stage Balance Test: Able to maintain feet together for 10 seconds but not so with any of the 3 positions indicating fall risk without assistive device Informed Consent/Education:? Patient was instructed in purpose of PT consult.? Assessment: Patient presents with clinical signs and symptoms consistent with current/admitting diagnoses that have resulted to mobility limitations, gait instability, generalized weakness, and overall ADL decline as demonstrated by the following impairment level findings: 1.? Decreased strength to B UE/LE major muscle groups 2.? Impaired standing balance 3.? Impaired activity tolerance 4.? Decubitus in gluteal/sacral area Impairments are contributing to the following functional limitations: 1.? Difficulty with ambulation without assistive device 2.? Increased completion time for mobility ADL performance 3.? Increased risk for falls 4.? Difficulty with managing steps alone safely Patient is assessed as a 23718 moderate complexity based on the following: History: [id number] with past medical history as indicated above Examination: Demonstrable impairment in strength, balance, and mobility level with underlying impairments and functional limitations as exhibited above as well as deficit score of 21% utilizing the [facility] Mobility Inpatient Short Form Presentation: Evolving Decision Makin moderate complexity Goals: N/A.? PT evaluation and 1 treatment session only for functional mobility retraining. Plan of Care/Treatment Plan: N/A.? PT evaluation and 1 treatment session only for functional mobility retraining. DISCHARGE RECOMMENDATIONS: []?? Home with no services [] [X] ?Home with services. Patient will benefit from home health PT services in order to progress mobility level using least restrictive assistive ambulatory device, assess home safety, identify additional equipment needs, and establish a functional maintenance program that will increase ability of patient to remain at home. [] ? Home with outpatient PT [] [] ? SNF for continued rehabilitation [] [] ? [facility] [] [] ? SNF versus LTC based on ability to participate and progress [] TREATMENT CODE/TIME: 94249 x 27 minutes beginning at 12:45 PM. Thank you for the opportunity to participate in the care of this patient. Hyacinth Stanley PT, DPT, CLT [facility] [place], [place]
== END 2022-08-03 16:38 | disposition home health service (06) | DRG 291 ==
LOC: ER 17:07 → ICU 17:50 → MS 08-01 04:36
PROVIDERS: Internal Medicine; Student in an Organized Health Care Education/Training Program; Admitting Provider Family Medicine; Emergency Provider Student in an Organized Health Care Education/Training Program; PCP Nurse Practitioner Family; Visit Provider Family Medicine
DX: I11.0 Hypertensive heart disease with heart failure (principal); I50.21 Acute systolic (congestive) heart failure; J96.01 Acute respiratory failure with hypoxia; I48.92 Unspecified atrial flutter; J94.8 Other specified pleural conditions; E78.5 Hyperlipidemia, unspecified; R53.1 Weakness; R29.6 Repeated falls; R00.0 Tachycardia, unspecified; F41.0 Panic disorder [episodic paroxysmal anxiety]; F10.10 Alcohol abuse, uncomplicated; J43.9 Emphysema, unspecified; D64.9 Anemia, unspecified; N40.0 Benign prostatic hyperplasia without lower urinary tract symptoms; I25.10 Atherosclerotic heart disease of native coronary artery without angina pectoris; Z90.2 Acquired absence of lung [part of]; Z99.81 Dependence on supplemental oxygen; Z87.891 Personal history of nicotine dependence; Z79.01 Long term (current) use of anticoagulants; Z85.118 Personal history of other malignant neoplasm of bronchus and lung; M65.88 Other synovitis and tenosynovitis, other site; R59.0 Localized enlarged lymph nodes; Z86.16 Personal history of COVID-19
CPT/HCPCS: 36415; 71275; 76604; 80048; 80053; 82550; 84145; 93005; 93308; 94618; 94640; 97162; 97530; 70450; 71046; 83735; 83880; 84100; 84439; 84443; 84484; 85025; 85379; 85610; 86140; 93010; 94664; 94760; 99223; 99232; 99233; 99239; J1940; J3480; J3490

== ENCOUNTER 2022-08-10 00:50 | Outpatient (CLI) | payer MEDICARE, SELFPAY ==
--- NOTE | 2022-08-10 08:00 | DI.US_ITS ---
APPROVED REPORT EXAM: Comprehensive 2D, Doppler, and color-flow Echocardiogram Patient Location: Out-Patient Jig Builder: Lionel Christopher RDMS, RVT Indications: CHF, Pleural effusion Other Information Study Quality: Fair. Technically limited study due to body habitus. Conclusion Normal left ventricular wall thickness. Volume is top normal. There is moderate to severe left vent ricular dysfunction, EF 30 to 35% with global hypokinesis Right ventricle is borderline dilated, appears mildly hypocontractile Both atria are borderline dilated Aortic valve is trileaflet and mildly thickened without stenosis or regurgitation Mildly thickened mitral leaflets, moderate mitral regurgitation Normal tricuspid valve with mild regurgitation. Estimated right ventricular systolic pressure is 25 mmHg Wall motion Left Ventricle The left ventricle is top normal in size. Left ventricular systolic function is moderately to severel y decreased. There is normal left ventricular wall thickness. There is global hypokinesis of the left ventricle. There is no ventricular septal defect visualized. LVEF is 30-35 %. Right Ventricle Right ventricle is borderline dilated. Right ventricle is mildly hypokinetic. The RVSP is 25.0_ mmHg. Atria Left atrium is borderline dilated. Right atrium is borderline dilated. The interatrial septum is inta ct with no evidence for an atrial septal defect. Aortic Valve The aortic valve is mildly thickened Aortic valve is trileaflet. There is no aortic valvular stenosis . No aortic regurgitation is present. Mitral Valve Mildly thickened mitral leaflets No evidence of mitral valve stenosis. Moderate mitral regurgitation . Tricuspid Valve The tricuspid valve is normal in structure. There is no tricuspid valve stenosis. Mild tricuspid regu rgitation. Pulmonic Valve The pulmonary valve is normal in structure. There is no pulmonic valvular stenosis. Mild pulmonic reg urgitation. Great Vessels The aortic root is normal in size. Ascending aorta is not well visualized. Aortic arch is not well vi sualized. IVC is normal in size and collapses >50% with inspiration. Pericardium Trace pericardial effusion. 2D Dimensions IVSD d PLAX 0.95 cm M: 0.6-1.2 LV Vol A4C d MOD 166.2 mL LVPW d PLAX 0.95 cm M: 0.6 - 1.2 LV EF A4C MOD 46.0 % LVID d PLAX 5.53 cm M: 4.2 - 5.8 LVDs 4.55 cm M: 2.5 - 4.0 Ao Root d 3.58 cm M: 3.1 - 3.7 RA Area A4C 19.40 cm2 RA Vol/ BSA A4C s A-L 36.5 mL/m2 LV EF Teichholz 34.7 % LV Volume Index 91.64 mL/m2 M: 34 - 74 FS 16.75 % M-Mode TAPSE 1.54 cm (M/F) >1.7 LV Diastology MV E Vmax 0.86 (0.4-1.3 m/s) Aortic Valve LVOT Area 3.80 cm2 AoV Area Vmax 2.48 cm2 LVOT Vmax 0.53 m/s AoV Area/ BSA (Vmax) 1.37 cm2/m2 LVOT Mean Deepak. 0.42 m/s SENDY Mean Deepak. 2.57 cm2 LVOT Peak Grad 1.1 mmHg SENDY Mean Deepak. Index 1.42 cm2/m2 LVOT Mean Grad 0.7 mmHg LVOT VTI 0.073 m LVOT Diam s 2.15 cm AoV Vmax 0.82 m/s Velocity Ratio 0.65 AoV Mean Deepak. 0.62 m/s AoV Peak Grad 2.7 mmHg LVOT SV 27.79 mL AoV Mean Grad 1.7 mmHg AoV VTI 0.113 m AoV Area VTI 2.46 cm2 AoV Area/ BSA (VTI) 1.35 cm/m2 Mitral Valve MV DT 126 (160-240 msec) MV PHT 37 msec MV Area PHT 6.02 cm2 MV VTI 0.156 m MV Area VTI 1.78 (4.0-6.0 cm2) Pulmonary Valve PV Vmax 0.64 (0.5-1.5 m/s) RVOT Peak Gr. 0.38 mmHg PV Peak Grad 1.6 mmHg RVOT Mean Gr. 0.20 mmHg PV Mean Grad 1.0 mmHg RVOT VTI 0.037 m PV VTI 0.102 m RVOT Vmax 0.31 m/s Tricuspid Valve TR Peak Grad 22.0 mmHg TR Vmax 2.35 m/s RA Pressure 3.00 mmHg RVSP (TR) 25.0 mmHg
== END 2022-08-10 01:10 ==
PROVIDERS: PCP Nurse Practitioner Family; Visit Provider Internal Medicine
DX: I50.9 Heart failure, unspecified (principal); J90 Pleural effusion, not elsewhere classified
CPT/HCPCS: 93306

== ENCOUNTER 2022-08-19 15:25 | Outpatient (REF) | payer MEDICARE, SELFPAY ==
[2022-08-19 17:03] LABS: BUN 24 mg/dL (7-18); CREATININE 0.9 mg/dL (0.70-1.30); Calcium 8.6 mg/dL (8.5-10.1); Chloride 104 mmol/L (98-107); Estimated GFR 90.74 (mL/min/1.73m2); Glucose 83 mg/dL (74-106); NT-proBNP 17193 pg/mL (<300); Potassium 4.1 mmol/L (3.5-5.1); Sodium 139 mmol/L (136-145)
== END 2022-08-19 15:26 | disposition home or self-care (01) ==
LOC: NCHCN 15:25
PROVIDERS: PCP Nurse Practitioner Family; Visit Provider Nurse Practitioner Family
DX: I50.9 Heart failure, unspecified (principal); J96.21 Acute and chronic respiratory failure with hypoxia
CPT/HCPCS: 80048; 83880

== ENCOUNTER 2022-09-04 11:27 | Outpatient (REF) | payer MEDICARE, SELFPAY ==
[2022-09-04 14:52] LABS: Anion Gap 9.4 mmol/L (3-11); BUN 23 mg/dL (7-18); CO2 27.6 mmol/L (21.0-32.0); CREATININE 1.3 mg/dL (0.70-1.30); Calcium 8.9 mg/dL (8.5-10.1); Chloride 104 mmol/L (98-107); Estimated GFR 58.37 (mL/min/1.73m2); Glucose 113 mg/dL (74-106); Potassium 4.3 mmol/L (3.5-5.1); Sodium 141 mmol/L (136-145)
== END 2022-09-04 11:28 | disposition home or self-care (01) ==
LOC: NCHCN 11:27
PROVIDERS: PCP Nurse Practitioner Family; Visit Provider Nurse Practitioner Family
DX: I50.9 Heart failure, unspecified (principal)
CPT/HCPCS: 80048

== ENCOUNTER 2022-09-12 18:34 | Outpatient (REF) | payer MEDICARE, SELFPAY ==
[2022-09-12 19:11] LABS: Anion Gap 9.6 mmol/L (3-11); BUN 27 mg/dL (7-18); CO2 29.4 mmol/L (21.0-32.0); CREATININE 1.4 mg/dL (0.70-1.30); Calcium 9.2 mg/dL (8.5-10.1); Chloride 104 mmol/L (98-107); Glucose 90 mg/dL (74-106); Potassium 4.4 mmol/L (3.5-5.1); Sodium 143 mmol/L (136-145)
== END 2022-09-12 18:35 | disposition home or self-care (01) ==
LOC: NCHCN 18:34
PROVIDERS: PCP Nurse Practitioner Family; Visit Provider Nurse Practitioner Family
DX: I50.9 Heart failure, unspecified (principal)
CPT/HCPCS: 80048

== ENCOUNTER → 2022-09-25 08:39 | Outpatient (BNVA) | payer MEDICARE, SELFPAY | PROVIDERS: PCP Nurse Practitioner Family; Visit Provider Internal Medicine Cardiovascular Disease | DX: I50.9 Heart failure, unspecified (principal); Z79.01 Long term (current) use of anticoagulants; I48.91 Unspecified atrial fibrillation | CPT/HCPCS: 99214 ==

== ENCOUNTER → 2022-09-25 12:52 | Outpatient (BNVA) | payer MEDICARE, SELFPAY | PROVIDERS: PCP Nurse Practitioner Family; Referring Provider Nurse Practitioner Family; Visit Provider Psychiatry & Neurology Neurology | DX: G62.9 Polyneuropathy, unspecified (principal); G25.0 Essential tremor; I10 Essential (primary) hypertension | CPT/HCPCS: 99214 ==

== ENCOUNTER 2022-09-26 17:56 | Outpatient (REF) | payer MEDICARE, SELFPAY ==
[2022-09-26 18:26] LABS: Anion Gap 11.1 mmol/L (3-11); BUN 32 mg/dL (7-18); CO2 24.9 mmol/L (21.0-32.0); CREATININE 1.6 mg/dL (0.70-1.30); Calcium 9.3 mg/dL (8.5-10.1); Chloride 106 mmol/L (98-107); Glucose 79 mg/dL (74-106); Sodium 142 mmol/L (136-145)
[2022-09-26 19:40] LABS: Vitamin B12 360 pg/mL (193-986)
[2022-09-28 13:58] LABS: Albumin 54.6 % (55.8-66.1); Albumin g/dL 3.9 g/dL (3.6-5.2); Total Protein 7.2 g/dL (6.3-8.2)
== END 2022-09-26 17:57 | disposition home or self-care (01) ==
LOC: NCHCN 17:56
PROVIDERS: Psychiatry & Neurology Neurology; PCP Nurse Practitioner Family; Visit Provider Nurse Practitioner Family
DX: I50.9 Heart failure, unspecified (principal)
CPT/HCPCS: 80048; 82607; 84165

== ENCOUNTER 2022-10-09 17:07 | Outpatient (REF) | payer MEDICARE, SELFPAY ==
[2022-10-09 13:40] LABS: Anion Gap 8.8 mmol/L (3-11); BUN 27 mg/dL (7-18); CO2 27.2 mmol/L (21.0-32.0); CREATININE 1.3 mg/dL (0.70-1.30); Chloride 101 mmol/L (98-107); Estimated GFR 58.37 (mL/min/1.73m2); Glucose 103 mg/dL (74-106); Potassium 4.6 mmol/L (3.5-5.1); Sodium 137 mmol/L (136-145)
== END 2022-10-09 17:08 | disposition home or self-care (01) ==
LOC: NCHCN 17:07
PROVIDERS: PCP Nurse Practitioner Family; Visit Provider Nurse Practitioner Family
DX: R79.89 Other specified abnormal findings of blood chemistry (principal)
CPT/HCPCS: 80048

== ENCOUNTER 2022-10-10 08:04 | Outpatient (CLI) | payer MEDICARE, SELFPAY ==
--- NOTE | 2022-10-10 08:00 | RT.EKG_ITS ---
APPROVED REPORT Exam: Resting ECG Reason for Exam: a flutter, tachycardia Patient Location: O HR:90 bpm ECG Measurements Heart Rate 90 AXIS TN [id number] P [id number] QRSd 106 QRS 95 QT 406 T -69 QTc 497 Conclusion Atrial flutter...A-rate 230 Left posterior fascicular block...trm axis(110,210), init force sup Consider left ventricular hypertrophy...(R aVL+S V3) >2.80mV Borderline T abnormalities, inferior leads...T flat/neg, II III aVF Borderline prolonged QT interval...QTc >475mS
== END 2022-10-10 08:05 | disposition home or self-care (01) ==
LOC: DI.CARD 08:05
PROVIDERS: PCP Nurse Practitioner Family; Visit Provider Internal Medicine Cardiovascular Disease
DX: I48.92 Unspecified atrial flutter (principal); R00.0 Tachycardia, unspecified
CPT/HCPCS: 93010

== ENCOUNTER → 2022-10-10 11:21 | Outpatient (BNVA) | payer MEDICARE, SELFPAY | PROVIDERS: PCP Nurse Practitioner Family; Referring Provider Internal Medicine Cardiovascular Disease; Visit Provider Internal Medicine Cardiovascular Disease | DX: I48.91 Unspecified atrial fibrillation (principal); Z79.01 Long term (current) use of anticoagulants; I48.92 Unspecified atrial flutter | CPT/HCPCS: 93005; 99214 ==

== ENCOUNTER → 2022-11-06 01:10 | Outpatient (CLI) | payer MEDICARE, SELFPAY ==
--- NOTE | 2022-11-06 14:05 | DI.US_ITS ---
Exam(s) US RENAL EXAM: US RENAL CLINICAL HISTORY: ELEVATED SERUM CREATININE, R79.89. TECHNIQUE: Veras scale, color and spectral Doppler were used. COMPARISON: CT CT CHEST PE CTA from 07/30/2022 FINDINGS: Renal size in cm: Right: 8.9. Left: 0.7. Echogenicity: Normal. Hydronephrosis: No. Cyst or mass: There is a simple 1.2 x 1.2 x 1.3 cm right renal cyst. No follow-up is recommended. Nephrolithiasis: No. Other findings: None. Bladder:Normal. Ureteral jets: Right: Visualized and unremarkable. Left: Visualized and unremarkable. Prevoid vol:61 cc Postvoid vol:49 cc Prostate: 17 cc Renal color flow: Symmetric and within normal limits. IMPRESSION: Small postvoid urinary bladder residual. DATA REPOSITORY:
== END ==
PROVIDERS: PCP Nurse Practitioner Family; Visit Provider Nurse Practitioner Family
DX: R79.89 Other specified abnormal findings of blood chemistry (principal)
CPT/HCPCS: 76770

== ENCOUNTER → 2022-11-15 13:14 | Outpatient (BNVA) | payer MEDICARE, SELFPAY | PROVIDERS: PCP Nurse Practitioner Family; Referring Provider Nurse Practitioner Family; Visit Provider Psychiatry & Neurology Neurology | DX: G62.9 Polyneuropathy, unspecified (principal); G25.0 Essential tremor; R26.89 Other abnormalities of gait and mobility | CPT/HCPCS: 95908; 99214 ==

== ENCOUNTER → 2022-12-06 02:32 | Outpatient (CLI) | payer MEDICARE, SELFPAY ==
--- NOTE | 2022-12-06 09:15 | DI.MRI_ITS ---
Exam(s) MR CERVICAL SPINE WO EXAM: MR CERVICAL SPINE WO CLINICAL HISTORY: ?myelopathy,imbalance,r26.89 TECHNIQUE: Multiplanar multisequence MRI of the cervical spine was performed without intravenous con trast. COMPARISON: No exams were available for comparison FINDINGS: CERVICOMEDULLARY JUNCTION: Intact with no evidence of cerebellar tonsillar ectopia. No obvious abnor mality of the odontoid process. No evidence of Chiari 1 malformation. CERVICAL SPINAL CORD: There is no abnormal signal in the cervical spinal cord and no evidence of foca l cord atrophy nor focal cord swelling. OSSEOUS:There are no cervical fractures evident. No significant osseous lesions in the cervical vert ebrae. INDIVIDUAL LEVELS: C2-3: No disc herniation nor central canal stenosis. No foraminal stenosis. No facet arthropathy. C3-4: Moderately decreased disc height. There is a subligamentous posterior disc protrusion which ex tends posteriorly 2 millimeters, flattening the thecal sac and contacting the cervical cord. There i s no abnormal cervical cord signal at this level. Mild central spinal canal stenosis. AP measuremen t of the canal is 9 mm at this level.Mild facet degenerative changes. There are no Luschka joint ost eophytes. There is mild bilateral foraminal stenosis. C4-5: Relatively preserved disc height. No disc herniation. Central canal dimensions are lower norm al.There are minimal degenerative changes in the facet joints at this level. No significant foramina l stenosis. C5-6: Mild disc space narrowing. Posteriorly there is small posterolateral right disc protrusion ext ending posteriorly 1 mm and approximately 4 mm wide.. Central canal dimensions are lower normal. AP measurement of the canal at this level is 11 mm. There is some flattening of the thecal sac but not the spinal cord. There are mild degenerative changes in the facet joints. No foraminal stenosis on the left side. Minimal foraminal stenosis on the right side. C6-7: This level exhibits chronic advanced disc space narrowing. Mild annular bulging but without a dominant disc herniation. Central canal dimensions lower normal with AP measurement 10 mm. Facet edie ints exhibit minimal degenerative changes. No significant foraminal stenosis on either side. No Luisana chka joint osteophytes. C7-T1: No disc herniation nor central canal stenosis. No facet arthropathy.No foraminal stenosis. IMPRESSION: 1. Multilevel chronic degenerative disc disease as described above. There is a posterior disc protru soraya at C3-4 level and mild central canal stenosis at this level. Small right-sided disc protrusion at C5-6 level. 2. There is only minimal foraminal narrowing in the cervical spine. No prominent foraminal stenosis. 3. There is no abnormal signal in the cervical spinal cord and no evidence of focal cord swelling nor focal cord atrophy. DATA REPOSITORY:
== END ==
PROVIDERS: PCP Nurse Practitioner Family; Visit Provider Psychiatry & Neurology Neurology
DX: R26.89 Other abnormalities of gait and mobility (principal)
CPT/HCPCS: 72141

== ENCOUNTER 2022-12-12 08:08 | Outpatient (CLI) | payer MEDICARE, SELFPAY ==
--- NOTE | 2022-12-12 08:00 | RT.EKG_ITS ---
APPROVED REPORT Exam: Resting ECG Reason for Exam: afib Patient Location: O HR:50 bpm ECG Measurements Heart Rate 50 AXIS MO 192 P 23 QRSd 107 QRS 83 QT 491 T 74 QTc 448 Conclusion Sinus rhythm...normal P axis, V-rate 50- 99 Borderline right axis deviation...QRS axis ( 81, 90)
== END 2022-12-12 08:09 | disposition home or self-care (01) ==
LOC: DI.CARD 08:09
PROVIDERS: PCP Nurse Practitioner Family; Visit Provider Internal Medicine Cardiovascular Disease
DX: R00.0 Tachycardia, unspecified
CPT/HCPCS: 93010

== ENCOUNTER → 2022-12-12 08:18 | Outpatient (BNVA) | payer MEDICARE, SELFPAY | PROVIDERS: PCP Nurse Practitioner Family; Referring Provider Nurse Practitioner Family; Visit Provider Internal Medicine Cardiovascular Disease | DX: I48.92 Unspecified atrial flutter (principal); I10 Essential (primary) hypertension | CPT/HCPCS: 93005; 99213 ==

== ENCOUNTER → 2022-12-25 08:31 | Outpatient (BNVA) | payer MEDICARE, SELFPAY | PROVIDERS: PCP Nurse Practitioner Family; Visit Provider Internal Medicine Cardiovascular Disease | DX: Z79.01 Long term (current) use of anticoagulants (principal); I11.0 Hypertensive heart disease with heart failure; I50.9 Heart failure, unspecified; I48.92 Unspecified atrial flutter | CPT/HCPCS: 99213 ==

== ENCOUNTER → 2022-12-27 09:26 | Outpatient (BNVA) | payer MEDICARE, SELFPAY | PROVIDERS: PCP Nurse Practitioner Family; Referring Provider Nurse Practitioner Family; Visit Provider Psychiatry & Neurology Neurology | DX: G62.9 Polyneuropathy, unspecified (principal); G25.0 Essential tremor; R26.89 Other abnormalities of gait and mobility; I10 Essential (primary) hypertension; J44.9 Chronic obstructive pulmonary disease, unspecified | CPT/HCPCS: 99213 ==

== ENCOUNTER → 2023-02-27 11:00 | Outpatient (BNVA) | payer MEDICARE, SELFPAY | PROVIDERS: PCP Nurse Practitioner Family; Referring Provider Nurse Practitioner Family; Visit Provider Physician Assistant Surgical | DX: J44.9 Chronic obstructive pulmonary disease, unspecified (principal); J90 Pleural effusion, not elsewhere classified; I50.9 Heart failure, unspecified; J98.19 Other pulmonary collapse; J96.91 Respiratory failure, unspecified with hypoxia; J94.8 Other specified pleural conditions; Z87.891 Personal history of nicotine dependence | CPT/HCPCS: 99214 ==

== ENCOUNTER 2023-03-05 03:33 | Outpatient (CLI) | payer MEDICARE, SELFPAY ==
[2023-03-05 10:11] LABS: ALT 22 U/L (16-63); AST 28 U/L (15-37); Albumin 3.7 g/dL (3.4-5.0); Alkaline Phosphatase 63 U/L (46-116); Anion Gap 10.8 mmol/L (3-11); BUN 18 mg/dL (7-18); Bilirubin, Total 0.6 mg/dL (0.2-1.0); CO2 26.2 mmol/L (21.0-32.0); CREATININE 1.8 mg/dL (0.70-1.30); Calcium 9.4 mg/dL (8.5-10.1); Chloride 103 mmol/L (98-107); Estimated GFR 39.25 (mL/min/1.73m2); Glucose 99 mg/dL (74-106); Potassium 3.9 mmol/L (3.5-5.1); Sodium 140 mmol/L (136-145); TSH (W/Ref FT4) 2.03 uIU/mL (0.36-3.74); Total Protein 7.9 g/dL (6.4-8.2)
== END 2023-03-05 03:34 | disposition home or self-care (01) ==
LOC: LBO 03:34
PROVIDERS: PCP Nurse Practitioner Family; Visit Provider Internal Medicine Cardiovascular Disease
DX: I48.91 Unspecified atrial fibrillation (principal); Z79.899 Other long term (current) drug therapy
CPT/HCPCS: 36415; 80053; 84443

== ENCOUNTER 2023-03-14 12:11 | Outpatient (REF) | payer MEDICARE, SELFPAY ==
[2023-03-14 16:39] LABS: Anion Gap 10.8 mmol/L (3-11); BUN 22 mg/dL (7-18); CO2 25.2 mmol/L (21.0-32.0); CREATININE 1.8 mg/dL (0.70-1.30); Calcium 9.5 mg/dL (8.5-10.1); Chloride 102 mmol/L (98-107); Estimated GFR 39.25 (mL/min/1.73m2); Glucose 96 mg/dL (74-106); Potassium 4.1 mmol/L (3.5-5.1); Sodium 138 mmol/L (136-145)
== END 2023-03-14 12:12 | disposition home or self-care (01) ==
LOC: NCHCN 12:11
PROVIDERS: PCP Nurse Practitioner Family; Visit Provider Nurse Practitioner Family
DX: R79.89 Other specified abnormal findings of blood chemistry (principal); I50.9 Heart failure, unspecified
CPT/HCPCS: 80048

== ENCOUNTER 2023-04-01 16:23 | Outpatient (REF) | payer MEDICARE, SELFPAY ==
[2023-04-01 16:44] LABS: Calcium 10.4 mg/dL (8.5-10.1); Chloride 101 mmol/L (98-107); Potassium 4.5 mmol/L (3.5-5.1); Sodium 138 mmol/L (136-145)
[2023-04-01 17:17] LABS: BUN 23 mg/dL (7-18); CREATININE 1.8 mg/dL (0.70-1.30); Estimated GFR 39.25 (mL/min/1.73m2); Glucose 96 mg/dL (74-106)
[2023-04-01 18:11] LABS: COMMENT (LAB VIEW ONLY) 21.38 mg/dL; Microalb ug/mg Crea 22.9 ug/mg Cr
== END 2023-04-01 16:24 | disposition home or self-care (01) ==
LOC: NCHCN 16:23
PROVIDERS: PCP Nurse Practitioner Family; Visit Provider Nurse Practitioner Family
DX: R94.4 Abnormal results of kidney function studies (principal); R79.89 Other specified abnormal findings of blood chemistry
CPT/HCPCS: 80048; 82043; 82570

== ENCOUNTER 2023-06-12 08:17 | Outpatient (CLI) | payer MEDICARE, SELFPAY ==
--- NOTE | 2023-06-12 08:45 | RT.EKG_ITS ---
APPROVED REPORT Exam: Resting ECG Reason for Exam: EKG Check up Patient Location: O HR:71 bpm ECG Measurements Heart Rate 71 AXIS [place] 186 P -26 QRSd 105 QRS 92 QT 423 T 55 QTc 460 Conclusion Sinus rhythm...normal P axis, V-rate 50- 99 Supraventricular bigeminy...bigeminy string>4 w/ SV complexes Right axis deviation...QRS axis ( 91,269) Consider left ventricular hypertrophy...(R aVL+S V3) >2.80mV
== END 2023-06-12 08:18 | disposition home or self-care (01) ==
LOC: DI.CARD 08:54
PROVIDERS: PCP Nurse Practitioner Family; Visit Provider Internal Medicine Cardiovascular Disease
DX: J44.9 Chronic obstructive pulmonary disease, unspecified
CPT/HCPCS: 93010

== ENCOUNTER → 2023-06-12 08:17 | Outpatient (BNVA) | payer MEDICARE, SELFPAY | PROVIDERS: PCP Nurse Practitioner Family; Referring Provider Nurse Practitioner Family; Visit Provider Internal Medicine Cardiovascular Disease | DX: I48.92 Unspecified atrial flutter (principal); Z79.899 Other long term (current) drug therapy | CPT/HCPCS: 93005; 99214 ==

== ENCOUNTER → 2023-07-04 02:54 | Outpatient (CLI) | payer MEDICARE, SELFPAY ==
--- NOTE | 2023-07-04 08:00 | DI.US_ITS ---
APPROVED REPORT EXAM: Comprehensive 2D, Doppler, and color-flow Echocardiogram Patient Location: Out-Patient Generator Man: Jocelyn Rincon RDCS (AE) Indications: History of CHF, Severely reduced LVEF, Heart failure, Cardiomyopathy Other Information Study Quality: Adequate. Technically limited study due to body habitus. Conclusion Mild concentric left ventricular hypertrophy. Ejection fraction biplane is 45%. Visually it appears 50 to 55%, no segmental wall motion abnormalities Normal right ventricular size and function Both atria are normal in size There are no structural valvular abnormalities Mild mitral regurgitation Mildly dilated aortic root (3.82 cm) and ascending aorta (3.48 cm) Wall motion Left Ventricle The left ventricle is normal size. Left ventricular systolic function is mild to moderately decreased . Mild concentric left ventricular hypertrophy. There is global hypokinesis of the left ventricle. Th ere is no ventricular septal defect visualized. LVEF is 45%. Right Ventricle Right ventricle is grossly normal in size. Right ventricle is mildly hypokinetic. Atria The left atrium size is normal. The right atrium size is normal. The interatrial septum is intact wit h no evidence for an atrial septal defect. Aortic Valve The aortic valve is normal in structure. Aortic valve is trileaflet. There is no aortic valvular sten osis. No aortic regurgitation is present. Mitral Valve The mitral valve is normal in structure. No evidence of mitral valve stenosis. Mild mitral regurgita tion. Tricuspid Valve The tricuspid valve is normal in structure. There is no tricuspid valve stenosis. Trace tricuspid reg urgitation. Unable to assess PA pressure. Pulmonic Valve The pulmonary valve is normal in structure. There is no pulmonic valvular stenosis. Trace pulmonic re gurgitation. Great Vessels Aortic root is mildly dilated. The ascending aorta is mildly dilated. IVC is normal in size and ray apses >50% with inspiration. Pericardium There is no pericardial effusion. 2D Dimensions IVSD d PLAX 1.32 cm M: 0.6-1.2 Ao Root d 3.82 cm M: 3.1 - 3.7 LVPW d PLAX 1.31 cm M: 0.6 - 1.2 Ao Asc Diam d 3.48 cm M: 2.6 - 3.4 LVID d PLAX 4.99 cm M: 4.2 - 5.8 LVDs 3.87 cm M: 2.5 - 4.0 LV EF Teichholz 45.1 % FS 22.47 % LV EDV (Teich) 117.9 mL LV ESV (Teich) 64.8 mL M-Mode TAPSE 2.92 cm (M/F) >1.7 Auto EF LV EDV A4C 121.7 mL LV EDV A2C 145.3 mL LV EDV BP 131.7 mL LV ESV A4C 66.6 mL LV ESV A2C 79.6 mL LV ESV BP 71.5 mL LVEF(%) A4C 45.3 % LVEF(%) A2C 45.2 % LVEF(%) BP 45.7 % LV SV A4C 55.1 ml LV SV A2C 65.7 ml LV SV BP 60.2 ml LV CO A4C 3.3 L/min LV CO A2C 3.7 L/min LV CO BP 3.5 L/min HR A4C 59.02 BPM HR A2C 55.99 BPM LV EDV Index (BP) LA Volume LA Length A4C 5.1 cm LA Length A2C 5.5 cm LA Area A4C s 18.89 cm2 LA Area A2C s 21.26 cm2 LA Vol A4C A-L 59.53 mL LA Vol A2C A-L 69.67 mL LA Vol Biplane A-L 67.0 mL LA Vol/BSA A4C A-L LA Vol/BSA A2C A-L LA Vol/BSA BP A-L 33.2 mL/m2 LA Vol A4C MOD 55.1 mL LA Vol A2C MOD 67.0 mL LA Vol BP MOD 63.0 mL RA Volume RA Area A4C 16.2 cm2 RA ESV A4C (A-L) 42.2mL RA Vol/BSA A4C A-L RA Length A4C 5.3 cm RA ESV A4C (MOD) 39.0mL LV Diastology MV E' medial 0.046 (>0.07 m/s) MV E Vmax 0.61 (0.4-1.3 m/s) MV E/E' MED 13.20 (<14) MV A Vmax 0.75 (0.4-1.3 m/s) MV E' lateral 0.087 (>0.1 m/s) E/A Ratio 0.8 MV E/E' LAT 6.98 (<14) MV E' Average 0.067 m/s MV E/E'(average) 9.13 Aortic Valve AoV Vmax 1.10 m/s LVOT Vmax 0.90 m/s AoV Peak Grad 4.8 mmHg LVOT Peak Grad 3.2 mmHg AoV Area (Vmax) 2.92 cm2 LVOT VTI 0.174 m AoV VTI 0.247 m LVOT Mean Grad 1.8 mmHg AoV Mean Deepak. 0.68 m/s LVOT SV 62.19 mL AoV Mean Grad 2.3 mmHg LVOT Diam s 2.10 cm AoV Area (VTI) 2.51 cm2 Velocity Ratio 0.82 Mitral Valve MV DT 409 (160-240 msec) MV Vmax TIPS 0.73 m/s MV Mean Grad 0.7 (<2mmHg) MV VTI 0.222 m Pulmonary Valve PV Vmax 0.90 (0.5-1.5 m/s) RVOT Vmax 0.66 m/s PV Peak Grad 3.2 mmHg RVOT Peak Gr. 1.8 mmHg PV Mean Deepak 0.67 m/s RVOT VTI 0.157 m PV Mean Grad 2.0 mmHg RVOT Mean Gr. 1.0 mmHg Tricuspid Valve RA Pressure 3.00 mmHg TV S' 0.18 m/s
== END ==
PROVIDERS: PCP Nurse Practitioner Family; Visit Provider Internal Medicine Cardiovascular Disease
DX: I42.9 Cardiomyopathy, unspecified (principal); I50.9 Heart failure, unspecified; Z86.79 Personal history of other diseases of the circulatory system
CPT/HCPCS: 93306

== ENCOUNTER 2023-12-11 08:22 | Outpatient (CLI) | payer MEDICARE, SELFPAY ==
--- NOTE | 2023-12-11 08:30 | RT.EKG_ITS ---
APPROVED REPORT Exam: Resting ECG Reason for Exam: On amiodarone therapy Patient Location: O HR:159 bpm ECG Measurements Heart Rate [address] [id number] P [id number] QRSd 96 QRS 103 QT 299 T -27 QTc 487 Conclusion Atrial fibrillation with rapid V-rate...A-rate 313 Right axis deviation...QRS axis ( 91,269) Borderline T abnormalities, inferior leads...T flat/neg, II III aVF
== END 2023-12-11 08:23 | disposition home or self-care (01) ==
LOC: DI.CARD 08:35
PROVIDERS: PCP Nurse Practitioner Family; Visit Provider Internal Medicine Cardiovascular Disease
DX: Z79.899 Other long term (current) drug therapy (principal)
CPT/HCPCS: 93010

== ENCOUNTER → 2023-12-11 08:22 | Outpatient (BNVA) | payer MEDICARE, SELFPAY | PROVIDERS: PCP Nurse Practitioner Family; Referring Provider Nurse Practitioner Family; Visit Provider Internal Medicine Cardiovascular Disease | DX: R00.0 Tachycardia, unspecified (principal); I50.9 Heart failure, unspecified | CPT/HCPCS: 93005; 99214 ==

== ENCOUNTER 2023-12-11 17:08 | Inpatient (IN) | payer MEDICARE, SELFPAY ==
[2023-12-11] VITALS (145 sets, daily range): BP systolic 97–172; BP diastolic 52–129; PULSE 90–163; RESP 3–46; TEMP 36.7–36.8; O2SAT 77–99
--- NOTE | 2023-12-11 17:15 | DI.RAD_ITS ---
Exam(s) XR PORTABLE CHEST AP EXAM: XR PORTABLE CHEST AP CLINICAL HISTORY: shortness of breath TECHNIQUE: 2D digital imaging was performed of the chest. One image was obtained. An AP view was ob tained. COMPARISON: CR XR CHEST 2V PA LATERAL from 08/02/2022 FINDINGS: Portions of the left lung are obscured by overlying monitoring equipment. MEDIASTINUM: Normal. HEART: Upper limits of normal in size. PULMONARY VASCULATURE: Normal. LUNGS: There is persistent pleural thickening in left hemithorax. No focal consolidating infiltrates are seen. PLEURAL SPACE: Stable left pleural thickening. No pleural effusion or pneumothorax. BONE:Within normal limits for the patient's age. Stable prior rib resections. OTHER FINDINGS:Normal. IMPRESSION: No acute change in appearance of the chest. No focal consolidating infiltrates are present. DATA REPOSITORY: RADIATION DOSE DELIVERED:
--- NOTE | 2023-12-11 17:15 | RT.EKG_ITS ---
APPROVED REPORT Exam: Resting ECG Reason for Exam: afib Patient Location: E HR:158 bpm ECG Measurements Heart Rate 158 AXIS LA 80 P 0 QRSd 94 QRS 98 QT 293 T -60 QTc 475 Conclusion Atrial fibrillation with RVR, rate 158 No STEMI
[2023-12-11] MEDS: Metoprolol 5 MG/5 ML VIAL IVP ×3 (17:26→17:53)
--- OUTSIDE RECORDS SUMMARY | 2023-12-11 17:32 | XMS_ITS | Encounter Summary ---
Author Organization [facility] [place] [address] Care Team Providers Care Dinkey Engine Operator Name Role Phone [email or web address] Primary Care Provider [phone] Reason for Referral * Diagnostic Test (Routine) - New Request Specialty Diagnoses / Procedures Referred By Bert gautam Referred To Contact Cardiology Diagnoses Persistent atrial fibrillation Procedures Transesophageal Echocardiogram (HARSH) Sekou Canales MD [facility] [place] [address] [facility] [place] [address] Referral ID Status Reason Start Date Expiration Date Visits Requested Visits Authorized [id number] New Request Specialty Service Requested 12/11/2023 12/10/2024 1 1 * Diagnostic Test (Routine) - New Request Specialty Diagnoses / Procedures Referred By Bert gautam Referred To Contact Cardiology Diagnoses Persistent atrial fibrillation Procedures Trans Echo (HARSH) with Cardioversion Sekou Canales MD [facility] [place] [address] [facility] [place] [address] Referral ID Status Reason Start Date Expiration Date Visits Requested Visits Authorized [id number] New Request Specialty Service Requested 12/11/2023 12/10/2024 1 1 Encounter Details Date Type Department Care Team (Late st Contact Info) Description 12/11/2023 Orders Only Cardiology at [address] [place] [address] Sekou Canales MD [facility] [place] [address] Persistent atrial fibrillation Social History Tobacco Use Types Packs/Day Years Used Date Smoking Tobacco: Former Cigarettes Smokeless Tobacco: Never Comments:1 ppd for the past year Alcohol Use Standard Drinks/Week Comments Not Currently 0 (1 standard drink = 0.6 oz pur e alcohol) IPV Inpatient Questions Answer Date Recorded Does Anyone Try to Keep You From Having Contact with Others or Doing Things Outside Your Home? no 11/08/2022 Feels Threatened by Someone no 10/11 Feels Unsafe at Home or Work/School no 11/08/2022 Physical Signs of Abuse Present no 11/08/2022 Sex and Gender Information Value Date Recorded Sex Assigned at Not on file Gender Identity Not on file Sexual Orientation Not on file documented as of this encounter Plan of Treatment Scheduled Orders Name Type Priority Associated Diagnoses Order Schedule Trans Echo (HARSH) with Cardioversion Echocardiography Routine Persistent atrial fibrillation Expected: 12/11/2023 (Approximate), Expires: 06/11/2024 SURGICAL CASE REQUEST NO POSTOP PAIN: CARDIOVERSION-ELECTIVE (WRVU 2), TRANSESOPHAGEAL ECHOCARDIOGRAM (WRVU 2.3) Procedures Routine One Time for 1 Occurrences starting 12/11/2023 until 12/11/2023 Transesophageal Echocardiogram (HARSH) Echocardiography Routine Persistent atrial fibrillation Expected: 12/11/2023 (Approximate), Expires: 06/11/2024 Electrophysiology Procedure: ELECTROPHYSIOLOGY PROCEDURE Electrophysiology Routine Persistent atrial fibrillation Ordered: 12/11/2023 Scheduled Procedures Name Priority Associated Diagnoses Date/Ti me ELECTROPHYSIOLOGY PROCEDURE Persistent atrial fibrillation CARDIOVERSION-ELECTIVE (WRVU 2) persistent atrial fibrillation TRANSESOPHAGEAL ECHOCARDIOGR AM (WRVU 2.3) persistent atrial fibrillation documented as of this encounter Visit Diagnoses Diagnosis Persistent atrial fibrillation Atrial fibrillation documented in this encounter Care Teams Dinkey Engine Operator Relationship Specialty Start Date End Date Tami Olivia [address] [place] [address] PCP - General Family Medicine 12/30/20 documented as of this encounter
--- OUTSIDE RECORDS SUMMARY | 2023-12-11 17:32 | XMS_ITS | Clinical Summary ---
Author Organization [facility] Address [facility] [place] [address] Care Team Providers Care Heating Unit Installer Name Role Phone SudhakarJacksonTami Primary Care Provider Allergies Active Allergy Reactions Criticality Noted Date Comments Cat Dander 12/07/2020 Runny eyes and nose Dog Dander 12/07/2020 Runny eyes and nose Medications Medication Sig Dispensed Refills Start Date End Date Status bupropion HCl (WELLBUTRIN ORAL) Take 150 mg by mouth daily. Active tamsulosin (Flomax) 0.4 mg Capsule Take 0.4 mg by mouth daily. Active hydrOXYchloroQUINE (Plaquenil) 200 mg Tablet Take 200 mg by mouth Daily. 04/04/2018 Active albuterol sulfate (Proair Digihaler) 90 mcg/actuation aero powdr breath act w/sensor 4 times daily as needed. Active cholecalciferol, Vitamin D3, (Vitamin D3) 1,000 unit Tablet Take 1 tablet by mouth daily. 11/01/2014 Active UNABLE TO FIND Cbd gummies to help with smoking cessation. Active sildenafiL (VIAGRA) 50 mg Tablet TAKE 1/2 TO 1 TABLET BY MOUTH 30 MINUTES PRIOR TO SEXUAL ACTIVITY NEEDED. MAXIMUM DAILY DOSE 2 10/09/2021 Active acetaminophen (Tylenol) 500 mg Tablet Take 2 tablets by mouth every 6 hours. 30 tablet 1 02/10/2022 Active Spiriva Respimat 2.5 mcg/actuation Mist 01/26/2022 Active AMIOdarone (Paceron) 200 mg Tablet Take 1 tablet by mouth daily. 30 tablet 11 03/05/2022 Active calcium carbonate-vitamin D3 600 mg-20 mcg (800 unit) Tablet Take 1 tablet by mouth daily. 03/29/2022 Active cyanocobalamin, Vitamin B-12, (Vitamin B-12) 1,000 mcg tablet Take 1,000 mcg by mouth daily. Active metoprolol succinate XL (Toprol-XL) 25 mg ER 24 hr tabletIndications:Typi armond atrial flutter,Nonischemic cardiomyopathy Take 1 tablet by mouth daily. 30 tablet 12 12/12/2022 Active rivaroxaban (Xarelto) 15 mg tabletIndications:Pers istent atrial fibrillation Take 1 tablet by mouth daily. 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 Atrial flutter 02/17/2022 Pleural effusion 02/08/2022 Mass of upper lobe of left lung 02/27/2021 ADHD 11/05/2019 COPD (chronic obstructive pulmonary disease) Depression 11/05/2019 Lupus anticoagulant positive 11/05/2019 Palpitations 11/05/2019 Tobacco abuse 11/05/2019 Unspecified osteoarthritis, unspecified site Encounters Date Type Department Care Team Description 12/11/2023 Orders Only Cardiology at [address] [phone] Sekou Canales MD Persistent atrial fibrillation from Last 3 Months Family History Medical History Relation Comments Myocardial Infarction Father Relation Status Comments Father Social History Tobacco Use Types Packs/Day Years Used Date Smoking Tobacco: Former Cigarettes Smokeless Tobacco: Never Tobacco Cessation:Counseling Given: Not Answered Comments:1 ppd for the past year Alcohol Use Standard Drinks/Week Comments Not Currently 0 (1 standard drink = 0.6 oz pur e alcohol) [facility] Inpatient Questions Answer Date Recorded Does Anyone [...] on file Sexual Orientation Not on file Last Filed Vital Signs Vital Sign Reading Time Taken Comments Blood Pressure 113/71 11/08/2022 1:45 PM EDT Pulse 57 11/08/2022 1:45 PM EDT Temperature 36.2 ??C (97.2 ??F) 11/08/2022 1:31 PM ED T Respiratory Rate 16 11/08/2022 1:45 PM EDT Oxygen Saturation 100% 11/08/2022 1:45 PM EDT Inhaled Oxygen Concentration - - Weight 73.1 kg (161 lb 3.2 oz) 11/08/2022 11:10 AM EDT Height 172.7 cm (5' 8) 11/08/2022 11:10 AM EDT Body Mass Index 24.51 11/08/2022 11:10 AM EDT Plan of Treatment Scheduled Procedures Name Priority Associated Diagnoses Date/Ti me ELECTROPHYSIOLOGY PROCEDURE Persistent atrial fibrillation CARDIOVERSION-ELECTIVE (WRVU 2) persistent atrial fibrillation TRANSESOPHAGEAL ECHOCARDIOGR AM (WRVU 2.3) persistent atrial fibrillation Health Maintenance Due Date Last Done Comments CT Colonography 1949 Colonoscopy 1950 Colorectal Cancer Screening 1949 FIT DNA 1949 FIT 1950 Sigmoidoscopy (10 year) with FIT yearly 1949 Sigmoidoscopy 1950 Pneumoccocal Vaccine: 65+ (1 of 2 - PCV) 12/25/1955 Hepatitis C Screening 12/25/1967 Lipid Screening 12/25/1967 Tetanus/Diphtheria/Pertussis Vaccines (1 - Tdap) 12/24 Zoster vaccine (1 of 2) 12/25/1999 Advance Directive 2004 AAA Screen 2014 Covid-19 Vaccine (1 - season) 2023 Influenza (Flu) vaccine (1 o f 1 - Influenza standard series) 11/10/2023 Medical Devices Implanted Type Area Brake Repair Supervisor Device Identifier Shelf Expiration Date Model / Serial / Lot Patch Vascular [id number] Straight Abd Soft Conformable ([id number]) (Aut[employer]) - [id number] Implanted:Qty: 1 on 05/18/2022 by Gilmer Gutiérrez MD at [facility] IMPLANTS Left: Chest Wall [employer] [id number] 12/04/2026 [id number] / [id number] / NA Advance Directives * Attempt Cardiopulmonary Resuscitation - Inpatient (Latest Code Status on File) Date Activated Date Inactivated Comments 11/08/2022 11:53 AM 11/08/2022 4:06 PM Question Answer Comments Code Status decision made by: Patient * Attempt Cardiopulmonary Resuscitation - Inpatient Date Activated Date Inactivated Comments 05/18/2022 2:12 PM 05/24/2022 5:01 PM Question Answer Comments Code Status decision made by: Patient * Attempt Cardiopulmonary Resuscitation - Inpatient Date Activated Date Inactivated Comments 05/18/2022 7:27 AM 05/18/2022 2:12 PM Question Answer Comments Code Status decision made by: Patient * Attempt Cardiopulmonary Resuscitation - Inpatient Date Activated Date Inactivated Comments 02/17/2022 6:51 PM 02/21/2022 3:09 PM Question Answer Comments Code Status decision made by: Patient * Attempt Cardiopulmonary Resuscitation - Inpatient Date Activated Date Inactivated Comments 02/08/2022 3:41 PM 02/10/2022 3:30 PM Question Answer Comments Code Status decision made by: Patient Care Teams Heating Unit Installer Relationship Specialty Start Date End Date Tami Olivia [address] [place] [address] PCP - General Family Medicine 12/30/20
--- OUTSIDE RECORDS SUMMARY | 2023-12-11 17:32 | XMS_ITS | Encounter Summary ---
Author Organization [facility] [place] [address] Care Team Providers Care Cloth Washer Name Role Phone Tami Olivia Primary Care Provider [phone] Reason for Visit * Auth/Cert (Routine) Specialty Diagnoses / Procedures Referred By Bert t Referred To Contact Diagnoses Atrial flutter atrial flutter Procedures PRO CARDIOVERSION ELECTIVE ARRHYTHMIA EXTERNAL CARDIOVERSION-ELECTIVE (WRVU 2) Sekou Canales MD [facility] [place] [address] [facility] Referral ID Status Reason Start Date Expiration Date Visits Re quested Visits Authorized [id number] 1 1 Encounter Details Date Type Department Care Team (Latest Contact Info) Description 11/08/2022 9:15 AM EDT Laboratory Appointment Lab [address] [place] [address] Encounter for monitoring amiodarone therapy; Longstanding persistent atrial fibrillation Social History Tobacco Use Types Packs/Day Years Used Date Smoking Tobacco: Former Cigarettes Smokeless Tobacco: Never Comments:1 ppd for the past year Alcohol Use Standard Drinks/Week Comments Not Currently 0 (1 standard drink = 0.6 oz pur e alcohol) [facility] Inpatient Questions Answer Date Recorded Does [...] of this encounter Plan of Treatment Scheduled Procedures Name Priority Associated Diagnoses Date/Ti tn ELECTROPHYSIOLOGY PROCEDURE Persistent atrial fibrillation CARDIOVERSION-ELECTIVE (WRVU 2) persistent atrial fibrillation TRANSESOPHAGEAL ECHOCARDIOGR AM (WRVU 2.3) persistent atrial fibrillation documented as of this encounter Procedures Procedure Name Priority Date/Time Associated Diagnosis Comments TSH CASCADE Routine 11/08/2022 9:17 AM EDT Encounter for monitoring amiodarone therapy Longstanding persistent atrial fibrillation MAGNESIUM Routine 11/08/2022 9:17 AM EDT Encounter for monitoring amiodarone therapy Longstanding persistent atrial fibrillation COMPREHENSIVE METABOLIC PANEL Routine 11/08/2022 9:17 AM EDT Encounter for monitoring amiodarone therapy Longstanding persistent atrial fibrillation documented in this encounter Results * (ABNORMAL) Comprehensive metabolic panel (non-fasting) (11/08/2022 9:17 AM EDT) Glucose 81 65 - 199 mg/dL [facility] Comment:Diabetes: >=200 mg/d L plus symptoms Blood Urea Nitrogen 25(H) 10 - 20 mg/dL [facility] Creatinine 1.58(H) 0.80 - 1.50 mg/dL [facility] Sodium 138 135 - 145 mmol/L [facility] Potassium 4.5 3.5 - 5.0 mmol/L [facility] Comment: Please note: ??Patients with WBC >100,000 may have falsely elevated Potassium levels. ??For accurate Potassium quantification in these patients send serum separator tube (gold top) for subsequent determinations. ??Contact the Clinical Chemistry Laboratory if there are any questions. Chloride 101 98 - 107 mmol/L [facility] Carbon Dioxide 25 22 - 31 mmol/L [facility] Anion Gap 12 5 - 15 mmol/L [facility] Calcium 9.6 8.5 - 10.5 mg/dL [facility] Protein, Total 7.5 6.1 - 8.0 g/dL [facility] Albumin 4.2 3.2 - 5.2 g/dL [facility] Aspartate Aminotransferase 33 0 - 39 unit/L [facility] Alanine Aminotransferase 32 0 - 55 unit/L [facility] Alkaline Phosphatase 104 40 - 130 unit/L [facility] Bilirubin, Total 0.6 0.2 - 1.3 mg/dL [facility] Est Glomerular Filtration Rate 46(L) >=60 mL/min/1. 73 m?? [facility] Comment: This patient's estimated GFR was calculated using the 2020 CKD-EPI equation. The estimated GFR can vary from the measured GFR by up to 30% in the absence of rapidly changing kidney function. Assessment of the estimated GFR is not appropriate when creatinine concentrations are rapidly changing. For clinical situations in which a more precise estimate of GFR is necessary, consider alternative methods of GFR estimation such as a 24-hour urine creatinine clearance. Assignment of CKD stage 1-5 for patients with an eGFR near the transition point between stages may be based on clinical assessment of muscle mass and symptoms in addition to eGFR. Blood 11/08/2022 9:17 AM EDT 11/08/2022 9:24 AM EDT Narrative Resulting Agency Comment Spec In Lab Sekou Canales MD CHEMISTRY ORDERABLES Performing Organization Address City/[facility] Co de Phone Number [facility] [place] [address] * Magnesium (11/08/2022 9:17 AM EDT) Magnesium 0.90 0.69 - 1.07 mmol/L [facility] Blood 11/08/2022 9:17 AM EDT 11/08/2022 9:24 AM EDT Narrative Resulting Agency Comment Spec In Lab Sekou Canales MD CHEMISTRY ORDERABLES Performing Organization Address [facility] Co de Phone Number [facility] [place] [address] * TSH [place] (11/08/2022 9:17 AM EDT) Thyroid Stimulating Hormone 3.91 0.27 - 4.20 mcIU/mL [facility] Comment: Reference Interval (mcIU/mL): Females: ??First Trimester: 0.23-3.88 ??Second Trimester: 0.22-3.90 ??Third Trimester: 0.44-4.66 Blood 11/08/2022 9:17 AM EDT 11/08/2022 9:24 AM EDT Narrative Resulting Agency Comment Spec In Lab Sekou Canales MD CHEMISTRY ORDERABLES Performing Organization Address City/State/[facility] Co de Phone Number [facility] [place] [address] documented in this encounter Visit Diagnoses Diagnosis Encounter for monitoring amiodarone therapy Encounter for therapeutic drug monitoring Longstanding persistent atrial fibrillation documented in this encounter Care Teams Cloth Washer Relationship Specialty Start Date End Date Tami Olivia [address] [place] [address] PCP - General Family Medicine 12/30/20 documented as of this encounter
--- OUTSIDE RECORDS SUMMARY | 2023-12-11 17:32 | XMS_ITS | Encounter Summary ---
Author Organization [facility] Address [facility] [place] [address] Care Team Providers Care Shipwright Supervisor Name Role Phone Tami Olivia Primary Care Provider [phone] Reason for Visit * Auth/Cert (Routine) Specialty Diagnoses / Procedures Referred By Bert t Referred To Contact Diagnoses Atrial flutter atrial flutter Procedures PRO CARDIOVERSION ELECTIVE ARRHYTHMIA EXTERNAL CARDIOVERSION-ELECTIVE (WRVU 2) Sekou Canales MD [facility] [place] [address] [facility] Referral ID Status Reason Start Date Expiration Date Visits Re quested Visits Authorized [id number] 1 1 Encounter Details Date Type Department Care Team (Late st Contact Info) Description 11/08/2022 11:00 AM EDT Office Visit Cardiology at [address] [place] [address] Elizabet Otero PA [facility] [place] [address] Encounter for monitoring amiodarone therapy; Longstanding persistent atrial fibrillation Social History Tobacco Use Types Packs/Day Years Used Date Smoking Tobacco: Former Cigarettes Smokeless Tobacco: Never Tobacco Cessation:Counseling Given: Not Answered Comments:1 ppd for the past year Alcohol Use Standard Drinks/Week Comments Not Currently 0 (1 standard drink = 0.6 oz pur e alcohol) [facility] Inpatient Questions Answer Date Recorded Does Anyone [...] on file documented as of this encounter Last Filed Vital Signs Vital Sign Reading Time Taken Comments Blood Pressure 120/64 11/08/2022 11:10 AM EDT Pulse 90 11/08/2022 11:10 AM EDT Temperature - - Respiratory Rate - - Oxygen Saturation 100% 11/08/2022 11:10 AM EDT Inhaled Oxygen Concentration - - Weight 73.1 kg (161 lb 3.2 oz) 11/08/2022 11:10 AM EDT Height 172.7 cm (5' 8) 11/08/2022 11:10 AM EDT Body Mass Index 24.51 11/08/2022 11:10 AM EDT documented in this encounter Progress Notes * Elizabet Otero PA - 11/08/2022 10:30 AM EDT Day of Cardioversion History and Physical Subjective: Patient ID: Rajan Marquez is a 71 y.o. male. CC: Presents for pre-cardioversion evaluation HPI: 71 y.o. male with past medical history of ASCVD, persistent atrial fibrillation on Xarelto, HTN, COPD, lung CA s/p left upper lobectomy in March 2021 complicated by pleural effusions s/p chesttube placement and s/p open left thoracotomy and total decortication in May 2022, former smoker, depression, GERD, and BPH, followed by Dr. Sekou Canales, who presents today for elective cardioversion. he has been NPO since 11/07/22 at 18:00. he is anticoagulated with Xarelto (is adamant there have been no missed doses in the last 3 weeks). AC: Xarelto Rate control: Metoprolol succinate 100mg daily Rhythm control: Amiodarone 200mg daily Mr. Marquez met with Dr. Canales in [facility] on 10/10/2022 for evaluation and management of atrial fibrillation and atrial flutter, noting that these are associated with CHF sx and reduced LVEF. Therefore, amiodarone was restarted and plans were made to pursue DCCV. Live independently in [place], [place]. Enjoys riding [employer]. Patient Active Problem List Diagnosis Fibrothorax Atrial flutter Pleural effusion Mass of upper lobe of left lung ADHD COPD (chronic obstructive pulmonary disease) Depression Lupus anticoagulant positive Palpitations Tobacco abuse Unspecified osteoarthritis, unspecified site Medications: Current Outpatient Medications Medication Sig Dispense Refill calcium carbonate-vitamin D3 600 mg-20 mcg (800 unit) Tablet Take 1 tablet by mouth daily. cyanocobalamin, Vitamin B-12, (Vitamin B-12) 1,000 mcg tablet Take 1,000 mcg by mouth daily. AMIOdarone (Paceron) 200 mg Tablet Take 1 tablet by mouth daily. 30 tablet 11 Spiriva Respimat 2.5 mcg/actuation Mist acetaminophen (Tylenol) 500 mg Tablet Take 2 tablets by mouth every 6 hours. 30 tablet 1 rivaroxaban (Xarelto) 20 mg Tablet Take 20 mg by mouth daily. metoprolol succinate XL (Toprol-XL) 25 mg Tablet Sustained Release 24 hr Take 100 mg by mouth daily. sildenafiL (VIAGRA) 50 mg Tablet TAKE 1/2 TO 1 TABLET BY MOUTH 30 MINUTES PRIOR TO SEXUAL ACTIVITY NEEDED. MAXIMUM DAILY DOSE 2 UNABLE TO FIND Cbd gummies to help with smoking cessation. bupropion HCl (WELLBUTRIN ORAL) Take 150 mg by mouth daily. tamsulosin (Flomax) 0.4 mg Capsule Take 0.4 mg by mouth daily. hydrOXYchloroQUINE (Plaquenil) 200 mg Tablet Take 200 mg by mouth Daily. albuterol sulfate (Proair Digihaler) 90 mcg/actuation aero powdr breath act w/sensor 4 times daily as needed. cholecalciferol, Vitamin D3, (Vitamin D3) 1,000 unit Tablet Take 1 tablet by mouth daily. Allergies Allergies Allergen Reactions Cat Dander Runny eyes and nose Dog Dander Runny eyes and nose Objective: Vitals: Vitals: 11/08/22 1110 BP: 120/64 BP Location (NBP): Left arm Patient Position: Sitting BP Cuff Sizes: Adult (25-34 cm) Pulse: 90 SpO2: 100% Weight: 73.1 kg (161 lb 3.2 oz) Height: 172.7 cm (5' 8) Physical Exam: General- No acute distress, sitting comfortably in exam room chair Skin- Warm and dry Cardiovascular- S1/S2, regular rate and irregularly irregular rhythm. Lungs- Clear to auscultation bilaterally Extremities- Pulses equal bilaterally. No edema noted Neuro- A&Ox3 ECG in office today shows atrial flutter vs. coarse atrial fibrillation with a ventricular rate of 89 bpm, QRS 106ms, QT 400ms, QTc 486ms Lab data: Recent Labs 11/08/22 0917 NA 138 K 4.5 CL 101 CO2 25 BUN 25* CREATININE 1.58* GLUCOSE 81 Lab Results Component Value Date MAGNESIUM 0.90 11/08/2022 Lab Results Component Value Date ALT 32 11/08/2022 AST 33 11/08/2022 ALKPHOS 104 11/08/2022 BILITOT 0.6 11/08/2022 Lab Results Component Value Date TSH 3.91 11/08/2022 Assessment and Plan: 71 y.o. male with past medical history of ASCVD, persistent atrial fibrillation on Xarelto, HTN, COPD, lung CA s/p left upper lobectomy in March 2021 complicated by pleural effusions s/p chest tubeplacement and s/p open left thoracotomy and total decortication in May 2022, former smoker, depression, GERD, and BPH, followed by Dr. Sekou Canales, who presents today for elective cardioversion. No contraindication to planned cardioversion today. Plan: 1. The cardioversion procedure was discussed and questions answered. We discussed possible risks including but not limited to: skin irritation or vieira, bradycardia or rhythm abnormalities (arrhythmia), stroke(CVA), aspiration, cardiac arrest. Written consent was obtained and given to Same Day staff for chart placement. 2. Code Status: FULL COD 3. Patient to proceed to Same Day Program 4. Follow up with Dr. Canales in [facility] I appreciate the opportunity to be involved with Mr. Marquez's care. Please do not hesitate to contactEP with any further questions (pager [phone]). STEVE Manley Pager: [phone] documented in this encounter Plan of Treatment Scheduled Procedures Name Priority Associated Diagnoses Date/Ti me ELECTROPHYSIOLOGY PROCEDURE Persistent atrial fibrillation CARDIOVERSION-ELECTIVE (WRVU 2) persistent atrial fibrillation TRANSESOPHAGEAL ECHOCARDIOGR AM (WRVU 2.3) persistent atrial fibrillation documented as of this encounter Procedures Procedure Name Priority Date/Time Associated Diagnosis Comments EKG 12-LEAD Routine 11/08/2022 11:19 AM EDT Encounter for monitoring amiodarone therapy Longstanding persistent atrial fibrillation documented in this encounter Results * EKG 12 Lead (11/08/2022 11:19 AM EDT) Pathologist [facility] Ventricular rate 89 BPM MUSE SYSTEM Atrial Rate 227 BPM MUSE SYSTEM QRS Duration 106 ms MUSE SYSTEM Q-T Interval 400 ms MUSE SYSTEM QTC Calculated (Bezet) 486 ms MUSE SYSTEM Calculated R Gamaliel 101 degrees MUSE SYSTEM Calculated T Gamaliel 60 degrees MUSE SYSTEM INTERPRETATION Atrial flutter with variable A-V block Rightward axis Minimal voltage criteria for LVH, may be normal variant ( Yash product ) Prolonged QT Abnormal ECG When compared with ECG of 21-MAY-2022 07:36, Atrial flutter has replaced Sinus rhythm Inverted T waves have replaced nonspecific T wave abnormality in Inferior leads Confirmed by MD Bob, Sloan ([id number]) on 11/10/2022 3:58:39 PM MUSE SYSTEM 11/08/2022 11:1 9 AM EDT 11/10/2022 3:58 PM EDT Sekou Canales MD ECG ORDERABLES MUSE SYSTEM * TSH [place] (11/08/2022 9:17 AM EDT) Pathologist [facility] Thyroid Stimulating Hormone 3.91 0.27 - 4.20 mcIU/mL [facility] Comment: Reference Interval (mcIU/mL): Females: ??First Trimester: 0.23-3.88 ??Second Trimester: 0.22-3.90 ??Third Trimester: 0.44-4.66 Blood 11/08/2022 9:17 AM EDT 11/08/2022 9:24 AM EDT Narrative Resulting Agency Comment Spec In Lab Sekou Canales MD CHEMISTRY ORDERABLES [facility] [address] * Magnesium (11/08/2022 9:17 AM EDT) Pathologist [facility] Magnesium 0.90 0.69 - 1.07 mmol/L [facility] Blood 11/08/2022 9:17 AM EDT 11/08/2022 9:24 AM EDT Narrative Resulting Agency Comment Spec In Lab Sekou Canales MD CHEMISTRY ORDERABLES [facility] [address] [facility] [address] [place] [address] * (ABNORMAL) Comprehensive metabolic panel (non-fasting) (11/08/2022 9:17 AM EDT) Glucose 81 65 - 199 mg/dL [facility] Comment:Diabetes: >=200 mg/d L plus symptoms Blood Urea Nitrogen 25(H) 10 - 20 mg/dL [facility] Creatinine 1.58(H) 0.80 - 1.50 mg/dL [facility] Sodium 138 135 - 145 mmol/L [facility] Potassium 4.5 3.5 - 5.0 mmol/L [facility] Comment: Please note: ??Patients with WBC >100,000 may have falsely elevated Potassium levels. ??For accurate Potassium quantification in these patients send serum separator tube (gold top) for subsequent determinations. ??Contact the Clinical Chemistry Laboratory if there are any questions. Chloride 101 98 - 107 mmol/L [facility] Carbon Dioxide 25 22 - 31 mmol/L [facility] Anion Gap 12 5 - 15 mmol/L [facility] Calcium 9.6 8.5 - 10.5 mg/dL [facility] Protein, Total 7.5 6.1 - 8.0 g/dL [facility] Albumin 4.2 3.2 - 5.2 g/dL [facility] Aspartate Aminotransferase 33 0 - 39 unit/L [facility] Alanine Aminotransferase 32 0 - 55 unit/L [facility] Alkaline Phosphatase 104 40 - 130 unit/L [facility] Bilirubin, Total 0.6 0.2 - 1.3 mg/dL [facility] Est Glomerular Filtration Rate 46(L) >=60 mL/min/1. 73 m?? [facility] Comment: This patient's estimated GFR was [...] In Lab Sekou Canales MD CHEMISTRY [place] [address] documented in this encounter Visit Diagnoses Diagnosis Encounter for monitoring amiodarone therapy Encounter for therapeutic drug monitoring Longstanding persistent atrial fibrillation documented in this encounter Care Teams Shipwright Supervisor Relationship Specialty Start Date End Date Tami Olivia [address] [place] [address] PCP - General Family Medicine 12/30/20 documented as of this encounter
--- OUTSIDE RECORDS SUMMARY | 2023-12-11 17:32 | XMS_ITS | Encounter Summary ---
Author Organization [facility] [place] [address] Care Team Providers Care Home Health Care Case Manager Name Role Phone Tami Olivia Primary Care Provider [phone] Reason for Visit * Auth/Cert (Routine) Specialty Diagnoses / Procedures Referred By Bert t Referred To Contact Diagnoses Atrial flutter atrial flutter Procedures PRO CARDIOVERSION ELECTIVE ARRHYTHMIA EXTERNAL CARDIOVERSION-ELECTIVE (WRVU 2) Sekou Canales MD [facility] [place] [address] [facility] Referral ID Status Reason Start Date Expiration Date Visits Re quested Visits Authorized [id number] 1 1 Encounter Details Date Type Department Care Team (Late st Contact Info) Description 11/08/2022 12:37 PM EDT Anesthesia [place] [address] Mary Wagoner MD [facility] [place] [address] Shashank Chung MD [facility] [place] [address] Anesthesia Record Procedure Summary Procedure Name Responsible Anesthesiologist Anesthesia Start Time Anesthesia Stop Time CARDIOVERSION-ELECT FIDEL (WRVU 2) Mary Wagoner MD 11/08/22 1237 11/08/22 1257 Events Date Time Event Comment 11/08/2022 1237 AN Verify 1237 Start 1237 An Start Data 1240 Anesthesia Ready 1243 AN Defib Cardioverted wi th 200 joules. Bite block in place for cardioversion. Converted to sinus bradycardia. 1251 an stop data 1255 Recovery or ICU Handoff Lucy ent care was transferred to the destination unit staff after review of the patient's medical history, current anesthetic/surgical status and plan, according to the Provider Handoff Checklist. 1257 Stop 1332 Meds Name Total Propofol 80 mg lactated ringers infusion 100 mL * Agents Name O2 Air N2O O2 Auxiliary Flowmeter 1 * Blood No blood administrations on file. Lines, Drains, and Airways Type Details Placement Removal Incision 05/18/22; 1000; Left ; back; transverse 05/18/22 1000 by Sanket Murphy, RN Chest Tube 05/18/22; 1318; Left ; 28Fr straight 05/18/22 1318 by Sanket Murphy, CHRISTINA (RETIRED) Peripheral IV Line - Single Lumen 11/08/22; 1221; median vein (underside of arm), left; ecte-thf-rcphws catheter system; Anatomical Landmarks; 20 gauge, 1 in length; wbarlow; intradermal injection, tolerated well; 11/08/22; 1405 11/08/22 1221 by Shahram Self RN 11/08/22 1405 by Brittney Austin RN documented in this encounter Social History Tobacco Use Types Packs/Day Years [...] on file documented as of this encounter OR Notes * Anesthesia Postprocedure Evaluation - Mary Wagoner MD - 11/08/2022 1:29 PM EDT Department of Anesthesiology Post-procedure Note Patient: Rajan Marquez Procedure Summary Date: 11/08/22 Room / Location: [facility] MINOR SURGERY 2 / [facility] MAIN OR Anesthesia Start: 1237 Anesthesia Stop: 1257 Procedure: CARDIOVERSION-ELECTIVE (WRVU 2) Diagnosis: (atrial flutter) Surgeons: Sekou Canales MD Responsible Provider: Mary Wagoner MD Anesthesia Type: MAC ASA Status: 3 All Anesthesia Providers: Anesthesiologist: Mray Wagoner MD CO FOUNDER AND CTO: Yosef Cantu CRNA Vitals Value Taken Time BP 98/58 11/08/22 1300 Temp 36.3 ??C (97.3 ??F) 11/08/22 1256 Pulse 56 11/08/22 1328 Resp 14 11/08/22 1328 SpO2 100 % 11/08/22 1328 Pain Level Vitals shown include unvalidated device data. [facility] Level of Consciousness: Conscious but Sleepy Pain Management: Satisfactory Analgesia PONV: None Cardiovascular Status: At Baseline and Hemodynamically Stable Respiratory Status: Stable Respiratory Status and Supplemental O2 (NC or FM) Postoperative Fluid Status: Intravascular EUvolemia Possible Anesthetic Complications: NONE apparent at time of evaluation Final Primary Anesthesia Type: MAC (The anesthetic type performed was the same as planned.) Comments: * Anesthesia Preprocedure Evaluation - Mary Wagoner MD - 11/08/2022 11:00 AM EDT Pre-Anesthesia Evaluation for: Rajan Marquez a 71 y.o. male. Procedure(s): CARDIOVERSION-ELECTIVE (WRVU 2) Patient Active Problem List Diagnosis Date Noted ??? 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 Atrial flutter 02/17/2022 ??? Pleural effusion 02/08/2022 ??? Mass of upper lobe of left lung 02/27/2021 ??? ADHD 11/05/2019 ??? COPD (chronic obstructive pulmonary disease) 11/05/2019 ??? Depression 11/05/2019 ??? Lupus anticoagulant positive 11/05/2019 ??? Palpitations 11/05/2019 ??? Tobacco abuse 11/05/2019 ??? Unspecified osteoarthritis, unspecified site 11/05/2019 Past Medical History: Diagnosis Date ??? BPH (benign prostatic hyperplasia) ??? COPD (chronic obstructive pulmonary disease) ??? Coronary artery disease ??? GERD (gastroesophageal reflux disease) ??? Hypertension ??? Synovitis Past Surgical History: Procedure Laterality Date ??? APPENDECTOMY ??? IR THORACENTESIS LEFT 11/08/2021 IR Thoracentesis Left 11/08/2021 ForRamírez caldera MD [facility] INTERVENTIONL RAD ??? PRO BRONCHOSCOPY, DIAGNOSTIC N/A 03/29/2021 BRONCHOSCOPY, DIAGNOSTIC (WRVU 2.78) performed by Gilmer Gutiérrez MD at [facility] OR ??? PRO BRONCHOSCOPY, DIAGNOSTIC N/A 02/08/2022 BRONCHOSCOPY, DIAGNOSTIC (WRVU 2.78) performed by Gilmer Gtuiérrez MD at [facility] OR ??? PRO BRONCHOSCOPY, DIAGNOSTIC N/A 05/18/2022 BRONCHOSCOPY, DIAGNOSTIC (WRVU 2.53) performed by Gilmer Gutiérrez MD at [facility] OR ??? PRO DECORTICATION, PULMONARY, TOTAL Left 05/18/2022 @THORACOTOMY,DECORTICATION, PULMONARY, TOTAL (WRVU 26.65) performed by Gilmer Gutiérrez MD [facility] OR ? ? PRO INJECTION ANES AGENT &/ STEROID INTERCOSTAL NERVE SINGLE LEVEL Left 03/29/2021 NERVE BLOCK, INTERCOSTAL NERVE (WRVU 1.18) performed by Gilmer Gutiérrez MD at [facility] OR ??? PRO RECONSTRUCT INJURED CHEST Left 05/18/2022 @MAJOR RECONSTRUCTION, CHEST WALL (WRVU 22.51) performed by Gilmer Gutiérrez MD at [facility] OR ??? PRO THORACOSCOPY SURG LOBECTOMY Left 03/29/2021 @THORACOSCOPY,SURGICAL,W\LOBECTOMY,TOTAL OR SEGMENTAL (WRVU 24.64) performed by Johana Gutiérrez MD at [facility] OR ??? PRO THORACOSCOPY WITH BIOPSY OF PLEURA Left 02/08/2022 THORACOSCOPY; WITH BIOPSY(IES) OF PLEURA (WRVU 4.58) performed by Gilmer Gutiérrez MD at [facility] OR ??? PRO THORACOSCOPY WITH MEDIASTINAL AND REGIONAL LYMPHADENECTOMY 03/29/2021 @THORACOSCOPY, SURG; W/MEDIASTINAL& REGIONAL LYMPHADENECTOMY (WRVU 4.12) performed by Gilmer Gutiérrez MD at [facility] MAIN OR ??? PRO THORACOSCOPY WITH WEDGE RESECTION AND ANATOMIC LUNG RESECTN Left 03/29/2021 @THORACOSCOPY, SURG; W/DX WEDGE RESC W/ANATOMIC LUNG RESC (WRVU 3) performed by Johana Gutiérrez MD at [facility] MAIN OR Social History Tobacco Use ??? Smoking status: Former Years: 50.00 Types: Cigarettes ??? Smokeless tobacco: Never ??? Tobacco comments: 1 ppd for the past year Substance Use Topics ??? Alcohol use: Not Currently Social History Substance and Sexual Activity Drug Use Yes ??? Types: Marijuana Comment: OCC Allergies Allergen Reactions ??? Cat Dander Runny eyes and nose ??? Dog Dander Runny eyes and nose Medications: MAR and/or home medications have been reviewed. Physical Exam: Preprocedure Vitals Current as of 11/08/22 1100 No BP, pulse, respiration, SpO2, or temperature recorded. Height: Weight: BMI: IBW: Airway Assessment: Mallampati: II TM distance: >3 FB Neck ROM: full Cardiovascular Assessment: Rhythm: irregular system normal Pulmonary Assessment: unlabored breathing Dental Assessment: Misc Assessment: IV access: Peripheral line Last Filed Perioperative Cognitive Screening Value Time User 4AT TOTAL Score: 1 05/22/2022 9:41 PM Sandro Newton RN Anesthesia Plan: ASA 3 MAC, with a(n) intravenous induction 71 y.o. male s/f cardioversion PMHx: CAD, AFib (amiodarone, rivaroxaban, metoprolol), HTN, COPD (albuterol), mood (bupropion) Allergies: -- Cat Dander -- Runny eyes and nose -- Dog Dander -- Runny eyes and nose Social Hx: no EtOH, daily 1/3 ppd Tobacco, no Marijuana Physical activity: can walk without issue ROS negative for GERD, CP, dizziness. Notes and labs reviewed. Patient personally seen and examined. We discussed benefits, indications, and risks of anesthesia (including but not limited to sore throat, dental injury, nerve injury, possible/prolonged intubation, cardiac, pulmonary, or neurologic event). Risk and benefits of sedation discussed with patient. All efforts will be made to keep patient comfortable and in an unaware sedated state; however, due to the nature of sedation it is possible to hear people talking during the procedure and to be aware of surroundings. Patient instructed to informour team of any needs or discomforts while with us today. Plan MAC, standard ASA monitors, adequate PIV access. Mary Wagoner MD Region - Other Informed Consent: Anesthetic plan and risks discussed with patient. Plan discussed with CO FOUNDER AND CTO and attending. Anesthesia Screening documented in this encounter Plan of Treatment Scheduled Procedures Name Priority Associated Diagnoses Date/Ti me ELECTROPHYSIOLOGY PROCEDURE Persistent atrial fibrillation CARDIOVERSION-ELECTIVE (WRVU 2) persistent atrial fibrillation TRANSESOPHAGEAL ECHOCARDIOGR AM (WRVU 2.3) persistent atrial fibrillation documented as of this encounter Visit Diagnoses Not on filedocumented in this encounter Administered Medications Inactive Administered Medications - up to 3 most recent administrations Medication Order MAR Action Action Date Dose Rate Site lactated ringers infusion 1,000 mL, at 100 mL/hr, Intravenous, CONTINUOUS, Starting on Stephanie 11/08/22 at 1230, Until Stephanie 11/08/22 at 1355, Day of Surgery (Day of Procedure) Restarted 11/08/2022 12:37 PM EDT New Bag 11/08/2022 12:22 PM EDT 1,000 mLs 100 mL/hr propofoL (Diprivan) 10 mg/mL bolus injection (Anesthesia) Intravenous, PRN, Starting on Stephanie 11/08/22 at 1241, Until Stephanie 11/08/22 at 1329, Anesthesia Intra-op Given 11/08/2022 12:43 PM EDT 20 mg Given 11/08/2022 12:41 PM EDT 60 mg documented in this encounter Care Teams Home Health Care Case Manager Relationship Specialty Start Date End Date Tami Olivia [address] [place] [address] PCP - General Family Medicine 12/30/20 documented as of this encounter
--- OUTSIDE RECORDS SUMMARY | 2023-12-11 17:32 | XMS_ITS | Encounter Summary ---
Author Organization [facility] [place] [address] Care Team Providers Care Vice Principal Name Role Phone Tami Olivia Primary Care Provider [phone] Encounter Details Date Type Department Care Team (Late st Contact Info) Description 11/09/2022 Telephone Cardiology at [address] [id number] Jaquelin Murdock Social History Tobacco Use Types Packs/Day Years Used Date Smoking Tobacco: Former Cigarettes Smokeless Tobacco: Never Comments:1 ppd for the past year Alcohol Use Standard Drinks/Week Comments Not Currently 0 (1 standard drink = 0.6 oz pur e alcohol) [facility] Inpatient Questions Answer Date Recorded Does Anyone [...] on file documented as of this encounter Miscellaneous Notes * Telephone Encounter - Jaquelin Murdock - 11/09/2022 3:50 PM EDT Email sent to Hailey Cavanaugh at [facility] asking for pt to be scheduled there for f/up with Dr. Canales. Jaquelin Murdock Sr. Clinical Procedure Grounds Caretaker/EP documented in this encounter Plan of Treatment Scheduled Procedures Name Priority Associated Diagnoses Date/Ti me ELECTROPHYSIOLOGY PROCEDURE Persistent atrial fibrillation CARDIOVERSION-ELECTIVE (WRVU 2) persistent atrial fibrillation TRANSESOPHAGEAL ECHOCARDIOGR AM (WRVU 2.3) persistent atrial fibrillation documented as of this encounter Visit Diagnoses Not on filedocumented in this encounter Care Teams Vice Principal Relationship Specialty Start Date End Date Tami Olivia [address] [place] [address] PCP - General Family Medicine 12/30/20 documented as of this encounter
--- OUTSIDE RECORDS SUMMARY | 2023-12-11 17:32 | XMS_ITS | Encounter Summary ---
Author Organization [facility] Address [facility] [place] [address] Care Team Providers Care Kick Boxer Name Role Phone Tami Olivia Primary Care Provider [phone] Encounter Details Date Type Department Care Team (Latest Contact Info) Description 11/08/2022 Travel Social History Tobacco Use Types Packs/Day Years [...] on filedocumented in this encounter Care Teams Kick Boxer Relationship Specialty Start Date End Date Tami Olivia [address] [place] [address] PCP - General Family Medicine 12/30/20 documented as of this encounter
--- OUTSIDE RECORDS SUMMARY | 2023-12-11 17:32 | XMS_ITS | Encounter Summary ---
Author Organization [facility] Address [facility] [place] [address] Care Team Providers Care Crisis Specialist Name Role Phone Tami Olivia Primary Care Provider [phone] Encounter Details Date Type Department Care Team (Late st Contact Info) Description 12/12/2022 Orders Only Cardiology at [address] [place] [address] Sekou Canales MD [facility] [place] [address] Typical atrial flutter; Nonischemic cardiomyopathy Social History Tobacco Use Types Packs/Day Years Used Date Smoking Tobacco: Former Cigarettes Smokeless Tobacco: Never Comments:1 ppd for the past year Alcohol Use Standard Drinks/Week Comments Not Currently 0 (1 standard drink = 0.6 oz pur e alcohol) [facility] Inpatient Questions Answer Date Recorded Does Anyone [...] Scheduled Procedures Name Priority Associated Diagnoses Date/Ti nj ELECTROPHYSIOLOGY PROCEDURE Persistent atrial fibrillation CARDIOVERSION-ELECTIVE (WRVU 2) persistent atrial fibrillation TRANSESOPHAGEAL ECHOCARDIOGR AM (WRVU 2.3) persistent atrial fibrillation documented as of this encounter Visit Diagnoses Diagnosis Typical atrial flutter Atrial flutter Nonischemic cardiomyopathy Other primary cardiomyopathies documented in this encounter Care Teams Crisis Specialist Relationship Specialty Start Date End Date Tami Olivia [address] [place] [address] PCP - General Family Medicine 12/30/20 documented as of this encounter
--- OUTSIDE RECORDS SUMMARY | 2023-12-11 17:32 | XMS_ITS | Encounter Summary ---
Author Organization [facility] Address [facility] [place] [address] Care Team Providers Care Security Consultant Name Role Phone Tami Olivia Primary Care Provider [phone] Encounter Details Date Type Department Care Team (Late st Contact Info) Description 06/12/2023 Orders Only Cardiology at [address] [place] [address] Sekou Canales MD [facility] [place] [address] Persistent atrial fibrillation Social History Tobacco Use [...] fibrillation documented in this encounter Care Teams Security Consultant Relationship Specialty Start Date End Date Tami Olivia [address] [place] [address] PCP - General Family Medicine 12/30/20 documented as of this encounter
--- OUTSIDE RECORDS SUMMARY | 2023-12-11 17:33 | XMS_ITS | Encounter Summary ---
Author Organization [facility] Address [facility] [place] [address] Care Team Providers Care Laser Set Up Operator Name Role Phone Tami Olivia Primary Care Provider Encounter Details Date Type Department Care Team (Late st Contact Info) Description 10/10/2022 Orders Only Cardiology at [address] [place] [address] Sekou Canales MD [facility] [address] [place] [id number] Typical atrial flutter Social History Tobacco Use Types Packs/Day Years Used Date Smoking Tobacco: Former Cigarettes Smokeless Tobacco: Never Comments:1 ppd for the past year Alcohol Use Standard Drinks/Week Comments Not Currently 0 (1 standard drink = 0.6 oz pur e alcohol) Sex and Gender Information Value Date Recorded Sex Assigned at Not on file Gender Identity Not on file Sexual Orientation Not on file documented as of this encounter Plan of Treatment Scheduled Procedures Name Priority Associated Diagnoses Date/Ti wv ELECTROPHYSIOLOGY PROCEDURE Persistent atrial fibrillation CARDIOVERSION-ELECTIVE (WRVU 2) persistent atrial fibrillation TRANSESOPHAGEAL ECHOCARDIOGR AM (WRVU 2.3) persistent atrial fibrillation documented as of this encounter Visit Diagnoses Diagnosis Typical atrial flutter Atrial flutter documented in this encounter Care Teams Laser Set Up Operator Relationship Specialty Start Date End Date Tami Olivia [address] [place] [address] PCP - General Family Medicine 12/30/20 documented as of this encounter
--- OUTSIDE RECORDS SUMMARY | 2023-12-11 17:33 | XMS_ITS | Encounter Summary ---
Author Organization [facility] Address [facility] [place] [address] Care Team Providers Care Decorating Supervisor Name Role Phone Tami Olivia Primary Care Provider [phone] Reason for Referral * Rehabilitation (Urgent) - Closed Specialty Diagnoses / Procedures Referred By Bert gautam Referred To Contact Rehabilitation Diagnoses Status post lung surgery Camilo Stevenson PA [facility] [place] [address] [facility] [place] [address] Referral ID Status Reason Start Date Expiration Date V isits Requested Visits Authorized [id number] Closed Evaluate and Treat 05/24/2022 05/24/2023 1 1 Reason for Visit * Auth/Cert (Routine) Specialty Diagnoses / Procedures Referred By Bert gautam Referred To Contact Diagnoses 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 Procedures PRO THORACOSCOPY SURG TOT PULM DECORT @ROBOT XI THORACOSCOPY,SURG; W TOTAL DECORTICATION (WRVU 29.13) Gilmer Foster MD [facility] [place] [address] [facility] Referral ID Status Reason Start Date Expiration Date Visits Re quested Visits Authorized [id number] 1 1 Encounter Details Date Type Department Care Team (Latest Contact Info) Description 05/18/2022 6:09 AM EST - 05/24/2022 3:00 PM EDT Hospital Encounter Surgical Unit Level [address] [place] [address] Gilmer Foster MD [facility] [place] [address] Status post lobectomy of lung; Atrial fibrillation, unspecified type; Tachycardia; Status post lung surgery Discharge Disposition: Home Social History Tobacco Use Types Packs/Day Years [...] Sign Reading Time Taken Comments Blood Pressure 122/83 05/24/2022 1:44 PM EDT Pulse 117 05/24/2022 12:44 PM EDT 120 with activity, 117 at end Temperature 36.4 ??C (97.5 ??F) 05/24/2022 1 :44 PM EDT Respiratory Rate 16 05/24/2022 1:44 PM EDT Oxygen Saturation 99% 05/24/2022 1:4 4 PM EDT Inhaled Oxygen Concentration - - Weight 70.6 kg (155 lb 10.3 oz) 05/24/2022 5:45 AM EDT Height 172.7 cm (5' 8) 05/18/2022 7:07 AM EST Body Mass Index 23.67 05/18/2022 7:07 AM EST documented in this encounter Discharge Summaries * Camilo Stevenson PA - 05/24/2022 12:16 PM EDT Images from the original note were not included. Department of Thoracic Surgery - Discharge Summary Patient Name: Rajan Marquez Patient Age: 71 y.o. Birthdate: 1950 Admit date: 05/18/2022 Discharge date: 05/24/2022 Attending Physician: Gilmer Foster MD Discharge Diagnoses (Hospital Problems) and Secondary Diagnoses (Chronic Problems): Active Hospital Problems Diagnosis ??? Fibrothorax Resolved Hospital Problems No resolved problems to display. Active Non-Hospital Problems Diagnosis ??? Atrial flutter ??? Pleural effusion ??? Mass of upper lobe of left lung ??? ADHD ??? COPD (chronic obstructive pulmonary disease) ??? Depression ??? Lupus anticoagulant positive ??? Palpitations ??? Tobacco abuse ??? Unspecified osteoarthritis, unspecified site Operations/Major Procedures: Operations: Case Date: 05/18/2022 Surgeon: Surgeon(s) and Role: * Gilmer Foster MD - Primary * Linda Mustafa PA - Physician Engraver Rubber * Renu Donald PA - Physician Engraver [employer]ber * Morales Armas MD - Resident Procedure: Procedure(s): @THORACOTOMY,DECORTICATION, PULMONARY, TOTAL (WRVU 26.65) BRONCHOSCOPY, DIAGNOSTIC (WRVU 2.53) MODIFIER RIB RESECTION @MAJOR RECONSTRUCTION, CHEST WALL (WRVU 22.51) Other Major Procedures: n/a History of Presentation: Rajan Marquez is a 71 y.o. male just over 1 year removed from a thoracoscopic left upper lobectomy,with a subsequent pleural effusion and now apparent fibrothorax. Hospital Course: Rajan Marquez was admitted to [facility] on 05/18/2022 via the Same Day Program. He was brought to the operating room on 05/18/[address] Gilmer Foster performed surgery as described above. He tolerated the procedure well and was brought to the Post Anesthesia Care Unit for recovery. After a brief period of time he was transferred to the floor for continued rehabilitation. His postoperative course was notable for persistent sinus tachycardia inthe setting of h/o SVT/a fib with baseline HR in the 120s (EKG on POD3 revealed sinus tach) and acute postoperative blood loss anemia with likely hemodilutional component. The left chest tube was disc ontinued on post operative day # 6. A chest Xray after this demonstrated unchanged loculated hydropnemothorax. By postoperative day # 6 he had met all criteria for discharge to home. Pain was controlled on oral medications. He had walked 5 minutes. He was tolerating a regular diet and passing flatus. He voided appropriately after matt removal. Patient reports he has a follow up appointment with cardiology, PCP and pulmonology in the coming weeks. He is aware he needs to maintain those appointments. Vital signs: Vital Signs Temp: 36.7 ??C (98.1 ??F) Temp src: Oral Heart Rate from SpO2: (Abnormal) 122 bpm Heart Rate: (Abnormal) 124 (115 after walking, 123 end at rest, RN aware of vitals.) Heart Rate Source: Monitor Resp: 15 BP: 119/82 MAP (NBP): 94 mmHg BP Method: Automatic Patient Position: Lying SpO2: 94 % O2 Flow Rate (L/min): 1 L/min O2 Device: None (Room air) Admission Wt: 71.53 kg Last Wt: Wt Readings from Last 3 Encounters: 05/24/22 70.6 kg (155 lb 10.3 oz) 04/30/22 72.1 kg (158 lb 15.2 oz) 04/16/22 70.6 kg (155 lb 10.3 oz) Pertinent physical exam findings prior to discharge: Gen: NAD, pleasant, sitting in bed HEENT: normocephalic, atraumatic, EOMI, sclerae anicteric Neck: supple, trachea midline Card: tachycardic on monitor (baseline of 100-110s), no M/R/G appreciated Pulm: CTAB, no wheeze/ronchi/rales appreciated, non-labored breathing on RA Abd: soft, NT, BS+ Ext: warm, dry, no edema Neuro: A&Ox3, CN II-XII grossly intact, nonfocal, conversant Incisions: Left thoracotomy c/d/i, chest tube dressing c/d/i Important Lab Data: Lab Results Component Value Date WBC 6.7 05/24/2022 HGB 8.1 (L) 05/24/2022 HCT 25.8 (L) 05/24/2022 MCV 83.2 05/24/2022 Lab Results Component Value Date NA 138 05/24/2022 K 3.6 05/24/2022 CL 104 05/24/2022 CO2 25 05/24/2022 Lab Results Component Value Date CREATININE 0.91 05/24/2022 Lab Results Component Value Date BUN 18 05/24/2022 No results found for: PREALBUMIN No results for input(s): PT, PTT, INR in the last 168 hours. Studies: Results for orders placed or performed during the hospital encounter of 05/18/22 XR Chest One View (Exam End: 05/18/2022 4:01 PM) Impression Loculated small to moderate left hydropneumothorax with thickened left pleural reflection and new left subcutaneous emphysema. Thank you for letting us participate in the care of this patient. If you are a health care provider and have any questions regarding this report, please contact the number below. For patients who have questions please contact the health critical care unit manager that requested your imaging first. Electronically signed by: Maryann Magallanes MD, [facility] ([phone]), at 05/18/2022 4:02 PM XR Chest PA & Lateral (Generic) (Exam End: 05/19/2022 11:06 AM) Impression Similar partially loculated moderate left hydropneumothorax. Thank you for letting us participate in the care of this patient. If you are a health care provider and have any questions regarding this report, please contact the number below. For patients who have questions please contact the health critical care unit manager that requested your imaging first. Electronically signed by: Savanah Suazo MD, [facility] ([phone]), at 05/19/2022 11:16 AM XR Chest PA & Lateral (Generic) (Exam End: 05/23/2022 7:00 AM) Impression * Apically directed left chest tube in unchanged position with the side-hole projecting external to the rib cage. * Improved air component of left hydropneumothorax. * Persistent diffuse hazy opacification of the left lung. Thank you for letting us participate in the care of this patient. If you are a health care provider and have any questions regarding this report, please contact the number below. For patients who have questions please contact the health critical care unit manager that requested your imaging first. Electronically signed by: Philip Church MD, [facility] ([phone]), at 05/23/2022 7:33 AM XR Chest PA & Lateral (Generic) (Exam End: 05/24/2022 5:35 AM) Impression Unchanged moderate left hydropneumothorax. Hazy opacity at the right lung base and in the left lung likely represents atelectasis. I have personally reviewed the image(s) and the resident's interpretation and agree with the findings, Marcus Edwards MD at 05/24/2022 8:58 AM Thank you for letting us participate in the care of this patient. If you are a health care provider and have any questions regarding this report, please contact the number below. For patients who have questions please contact the health critical care unit manager that requested your imaging first. Electronically signed by: Marcus Edwards MD, [facility] ([phone]), at 05/24/2022 8:58 AM XR Chest PA & Lateral (Generic) (Exam End: 05/24/2022 8:44 AM) Impression 1. Interval removal of the left chest tube with unchanged loculated hydropneumothorax along the left peripheral hemithorax. I have personally reviewed the image(s) and the resident's interpretation and agree with the findings, Marcus Edwards MD at 05/24/2022 10:06 AM Thank you for letting us participate in the care of this patient. If you are a health care provider and have any questions regarding this report, please contact the number below. For patients who have questions please contact the health critical care unit manager that requested your imaging first. Electronically signed by: Marcus Edawrds MD, [facility] ([phone]), at 05/24/2022 10:06 AM Pending Studies and Lab Data: No current labs Discharge Conditions/Prognosis: Stable Discharge to: Home with supervision patient has multiple walkers at home Discharge Medications: Your Medications New Medications Dose Details docusate sodium 100 mg capsule Commonly known as: Colace Take 1 capsule by mouth 3 times daily for 10 days. 100 mg Quantity: 20 capsule Refills: PRN oxyCODONE 5 mg tablet Commonly known as: Roxicodone Take 1 tablet by mouth every 6 hours as needed for Pain. 5 mg Quantity: 30 tablet Refills: 0 senna 8.6 mg tablet Commonly known as: Senokot Take 2 tablets by mouth every evening. 2 tablet Quantity: 60 tablet Refills: PRN Continued medications, unchanged Dose Details acetaminophen 500 mg tablet Commonly known as: Tylenol Take 2 tablets by mouth every 6 hours. 1,000 mg Quantity: 30 tablet Refills: 1 AMIOdarone 200 mg tablet Commonly known as: Pacerone Take 1 tablet by mouth daily. 200 mg Quantity: 30 tablet Refills: 11 cholecalciferol 1,000 unit tablet Commonly known as: Vitamin D3 Take 1 tablet by mouth daily. 1 tablet Refills: 0 hydrOXYchloroQUINE 200 mg tablet Commonly known as: Plaquenil Take 200 mg by mouth Daily. 200 mg Refills: 0 metoprolol succinate XL 25 mg ER 24 hr tablet Commonly known as: Toprol-XL Take 25 mg by mouth daily. 25 mg Refills: 0 Proair Digihaler 90 mcg/actuation Aebs 4 times daily as needed. Generic drug: albuterol sulfate Refills: 0 rivaroxaban 20 mg tablet Commonly known as: Xarelto Take 20 mg by mouth daily. 20 mg Refills: 0 sildenafiL 50 mg tablet Commonly known as: Viagra TAKE 1/2 TO 1 TABLET BY MOUTH 30 MINUTES PRIOR TO SEXUAL ACTIVITY NEEDED. MAXIMUM DAILY DOSE 2 Refills: 0 Spiriva Respimat 2.5 mcg/actuation Mist Generic drug: tiotropium bromide Refills: 0 tamsulosin 0.4 mg Cap Commonly known as: Flomax Take 0.4 mg by mouth daily. 0.4 mg Refills: 0 UNABLE TO FIND Cbd gummies to help with smoking cessation. Refills: 0 WELLBUTRIN ORAL Take 150 mg by mouth daily. 150 mg Refills: 0 Updated Allergies/ADRs: Allergies Allergen Reactions ??? Cat Dander Runny eyes and nose ??? Dog Dander Runny eyes and nose Instructions Given to Patient at Discharge: Patient Instructions Call if you have a fever of greater than 101 degrees, shaking chills, pain not controlled by the medications you were prescribed, develop redness or drainage from your incision site(s), or if you have questions. During normal business hours, Saturday- Saturday 8:00 a.m.-5:00 p.m., please call to speak to a nurse in the Thoracic Clinic at [phone]. After hours or on weekends or holidays please call: [phone] and ask to speak to the Thoracic Surgeon telephone surveyor. Exercise & Activity Level: As you recover from surgery exercise at least 30 minutes a day. Thiscan be broken up into several times a day to achieve this goal at first, but you will be able to work up to doing all 30 minutes at once. Walking, treadmill, stationary bike, elliptical machine or there stationary exercise equipment is appropriate. Take your incentive spirometer home with you. You should use this every hour while awake, 10 times each. This helps you to exercise your respiratory muscles and to breathe deeply. Taking purposeful deep breaths can be just as effective. Do not lift more than 10 pounds for 6-8 weeks (nothing heavier than a gallon of milk) unless otherwise instructed by Thoracic Surgery. Don???t exhaust yourself. Rest between activities as you recoverfrom your procedure. Please keep you Left arm in the sling when you are up and out of bed. Please continue using the sling until your follow up with Dr Foster in 2 weeks. Diet: You should follow a regular, healthy diet. Smoking: If you are a smoker, please avoid smoking. If you are a smoker who needs help quitting, please call the thoracic surgery clinic at [phone]. Driving: No driving for 1 week or while taking narcotic pain medication. Home Medications: Please continue to hold your Xarelto. You may restart your Xarelto starting Saturday05/28/22. New Medications: Oxycodone for break-through pain not controlled by tylenol Shower/Bath: You may shower daily starting 2 days after chest tube removal, no soaking in a bath tub or swimming until your follow-up appointment. Incision care: Wash your incision(s) daily with soap and rinse well, pat dry. Assess for any signs of infection such as increased redness, pain, warmth or drainage. If you had a chest tube, you may remove the dressing over the chest tube site in 2 days after the chest tube was removed and leave it open to the air if it is not draining. Otherwise change the dressing twice a day and as needed. The dressing may remain off once there is no drainage. Drainage from the incision sites: Clear yellow drainage from the incision sites, specifically the chest tube site, is normal. However, if this become larger volume, requiring 5 or more dressing changes in 1-2 hours, you should call to discuss this with one of the thoracic nurses. If you notices worsening pain at the incision sites, redness, swelling, or white/milky/cloudy drainage, please call the office immediately. If you have steri-strips over an incision site, these will remain in place for 7-10 days. You may shower with them, and they will fall off naturally in 7-10 days. If they do not fall off by 10 days, you may remove them. Cough: A dry cough after lung surgery is normal. You may cough up a small amount of blood or blood tinges sputum. This should resolve in 24-48 hours. If it does not or you cough up bright red blood, especially more than a 1-2 tablespoons, please call our office immediately. Pain: Pain after surgery is normal. The goal is for you to be able to tolerate pain so you can complete your daily activities. You may notice a burning or numbness on the side of your incision that may include your breast area. This should improve over time but there may be areas that remain numb. You may use a heating pad set on low or medium, over your incision to help relax the muscles in the area and decrease discomfort. Please take your medication as prescribed. If you are not having good pain control, please call and speak to the nurse in the Thoracic Clinic or the Thoracic Surgeon telephone surveyor after hours. Please take over the counter Tylenol 1000mg every 6 hours and Ibuprofen 600mg every 6 hours, together as instructed, for baseline pain coverage. DO NOT exceed that maximum dosing as listed on the labels. Take the Oxycodone, as prescribed, for pain not controlled by the Tylenol. If your pain is not well controlled with these medications, please call our office. If you take sleep medications or medications for anxiety, you should not take these while taking narcotic pain medications as this can potentially cause decreased breathing. We are unable to refill narcotics after 5 pm or on weekends or holidays. If you need more pain medication please call us before you run out of pills. Please allow 3 days for us to mail a refill for pain medication to you. Narcotic medication is intended for your use only. Do not share with others. If you are given a prescription for narcotics please keep these in a safe place and dispose of properly when you no longerneed these pills. Madelyn Labels 05/18/2022 03/29/2021 Opioid PDMP Section Header. No data exists in this row. [place] PDMP Query Date 05/24/2022 04/01/2021 [place] PDMP Query Date 05/24/2022 04/01/2021 [place] PDMP Query Date 05/24/2022 04/01/2021 Multiple values from one day are sorted in reverse-chronological order Rajan Marquez is being prescribed a prescription opioid for the treatment of acute post-operative pain related to surgery. Rajan Marquez has been advised to take the smallest dose possible to controltheir pain and as their pain improves to take smaller doses and increase the time between doses. In addition to this medication, non-opioid medications have been prescribed for adjunct treatment of their pain. Non-pharmacological treatment such as ice, elevation and activity modification have been recommended as appropriate. The Acute Opioid Therapy Informed Consent form has been completed and sent to medical records for scanning to chart. Please take your medication exactly as prescribed. Read all instructions that come with your medication. ?? Using narcotic pain medication (such as oxycodone, hydromorphone (Dilaudid), morphine, fentanyl,or tramadol) may cause addiction. While addiction is more common in people with a personal or family history of addiction, it can occur in anyone. ?? Taking more than the prescribed amount of medication or using with alcohol or other drugs can cause you to stop breathing resulting in coma, brain damage, or . ?? Opioids (oxycodone, hydromorphone/Dilaudid, morphine, fentanyl, tramadol) can slow reaction time, cause drowsiness, or cloud judgement. It is unsafe for you to drive or operate heavy machinery while taking this medication. ?? Opioids (oxycodone, hydromorphone/Dilaudid, morphine, fentanyl, tramadol) are at risk of being diverted by anyone with access to your home. Opioids should be stored in a safe and secure place, such as a locked cabinet or safe. ?? Unused opioids (oxycodone, hydromorphone/Dilaudid, morphine, fentanyl, tramadol) should be disposed of according to the label or patient information. If there are no specific instructions, medications may be returned to a take- back location or mixed with a small amount of water and an undesirable waste substance such as coffee grounds or cat litter. Sleep: Try to establish normal sleep patterns. Long naps during the day may make it hard for you tosleep at night. Use the pain medication at bedtime for the first week at home if needed. Bowel Movements: After surgery, your bowel movements may not be regular for you, but you should be able to get back to your daily routine quickly. Please make sure to take the stool softeners or mildlaxatives as prescribed to get back to your normal routine. If you do not have a bowel movement formore than 2 days or begin to experience moderate to severe abdominal pain, please call the office. Follow up appointments: You will see Dr Foster in 2 weeks with a chest Xray within one hour of the appointment. A letter will be mailed to you confirming your appointment information. No future appointments. General Instructions None Future Appointments and Orders Future Orders Complete By Expires XR Chest PA & Lateral (Generic) [[id number] Custom] 06/07/2022 12/07/2022 Process Instructions: Scheduling Instructions: Questions: Reason for exam and clinical history: s/p left thoracotomy and decortication Clinical information / bryan questions for radiologist: eval for effusion and/or ptx Where will study be performed?: [facility] Radiology Portable exam?: Stat read required?: Date of injury if applicable: Requested Time: Referral to Pulmonary Rehab [DIF174 Custom] As directed Process Instructions: Scheduling Instructions: Questions: May include the following tests: Breathing Retraining: Diaphragmatic Techniques Provider Contact Information: Primary Care Provider: Tami Olivia [phone] Discharge References/Attachments: Discharge References/Attachments None For questions regarding this document or issues relating to this hospitalization on the Thoracic Surgery Service, please contact Dr. Foster's office at . Signed: STEVE Black 05/24/2022 CC: PCP: Tami Olivia Referring: No referring provider defined for this encounter. documented in this encounter Discharge Instructions * Patient Instructions* Camilo Stevenson PA - 05/23/2022 10:47 AM EDT Images from the original note were not included. Call if you have a fever of greater than 101 degrees, shaking chills, pain not controlled by the medications you were prescribed, develop redness or drainage from your incision site(s), or if you have questions. During normal business hours, Saturday- Saturday 8:00 a.m.-5:00 p.m., please call to speak to a nurse in the Thoracic Clinic at [phone]. After hours or on weekends or holidays please call: [phone] and ask to speak to the Thoracic Surgeon telephone surveyor. Exercise & Activity Level: As you recover from surgery exercise at least 30 minutes a day. Thiscan be broken up into several times a day to achieve this goal at first, but you will be able to work up to doing all 30 minutes at once. Walking, treadmill, stationary bike, elliptical machine or there stationary exercise equipment is appropriate. Take your incentive spirometer home with you. You should use this every hour while awake, 10 times each. This helps you to exercise your respiratory muscles and to breathe deeply. Taking purposeful deep breaths can be just as effective. Do not lift more than 10 pounds for 6-8 weeks (nothing heavier than a gallon of milk) unless otherwise instructed by Thoracic Surgery. Don???t exhaust yourself. Rest between activities as you recoverfrom your procedure. Please keep you Left arm in the sling when you are up and out of bed. Please continue using the sling until your follow up with Dr Foster in 2 weeks. Diet: You should follow a regular, healthy diet. Smoking: If you are a smoker, please avoid smoking. If you are a smoker who needs help quitting, please call the thoracic surgery clinic at [phone]. Driving: No driving for 1 week or while taking narcotic pain medication. Home Medications: Please continue to hold your Xarelto. You may restart your Xarelto starting Saturday05/28/22. New Medications: Oxycodone for break-through pain not controlled by tylenol Shower/Bath: You may shower daily starting 2 days after chest tube removal, no soaking in a bath tub or swimming until your follow-up appointment. Incision care: Wash your incision(s) daily with soap and rinse well, pat dry. Assess for any signs of infection such as increased redness, pain, warmth or drainage. If you had a chest tube, you may remove the dressing over the chest tube site in 2 days after the chest tube was removed and leave it open to the air if it is not draining. Otherwise change the dressing twice a day and as needed. The dressing may remain off once there is no drainage. Drainage from the incision sites: Clear yellow drainage from the incision sites, specifically the chest tube site, is normal. However, if this become larger volume, requiring 5 or more dressing changes in 1-2 hours, you should call to discuss this with one of the thoracic nurses. If you notices worsening pain at the incision sites, redness, swelling, or white/milky/cloudy drainage, please call the office immediately. If you have steri-strips over an incision site, these will remain in place for 7-10 days. You may shower with them, and they will fall off naturally in 7-10 days. If they do not fall off by 10 days, you may remove them. Cough: A dry cough after lung surgery is normal. You may cough up a small amount of blood or blood tinges sputum. This should resolve in 24-48 hours. If it does not or you cough up bright red blood, especially more than a 1-2 tablespoons, please call our office immediately. Pain: Pain after surgery is normal. The goal is for you to be able to tolerate pain so you can complete your daily activities. You may notice a burning or numbness on the side of your incision that may include your breast area. This should improve over time but there may be areas that remain numb. You may use a heating pad set on low or medium, over your incision to help relax the muscles in the area and decrease discomfort. Please take your medication as prescribed. If you are not having good pain control, please call and speak to the nurse in the Thoracic Clinic or the Thoracic Surgeon telephone surveyor after hours. Please take over the counter Tylenol 1000mg every 6 hours and Ibuprofen 600mg every 6 hours, together as instructed, for baseline pain coverage. DO NOT exceed that maximum dosing as listed on the labels. Take the Oxycodone, as prescribed, for pain not controlled by the Tylenol. If your pain is not well controlled with these medications, please call our office. If you take sleep medications or medications for anxiety, you should not take these while taking narcotic pain medications as this can potentially cause decreased breathing. We are unable to refill narcotics after 5 pm or on weekends or holidays. If you need more pain medication please call us before you run out of pills. Please allow 3 days for us to mail a refill for pain medication to you. Narcotic medication is intended for your use only. Do not share with others. If you are given a prescription for narcotics please keep these in a safe place and dispose of properly when you no longerneed these pills. Row Labels 05/18/2022 03/29/2021 Opioid PDMP Section Header. No data exists in this row. [place] PDMP Query Date 05/24/2022 04/01/2021 [place] PDMP Query Date 05/24/2022 04/01/2021 [place] PDMP Query Date 05/24/2022 04/01/2021 Multiple values from one day are sorted in reverse-chronological order Rajan Marquez is being prescribed a prescription opioid for the treatment of acute post-operative pain related to surgery. Rajan Marquez has been advised to take the smallest dose possible to controltheir pain and as their pain improves to take smaller doses and increase the time between doses. In addition to this medication, non-opioid medications have been prescribed for adjunct treatment of their pain. Non-pharmacological treatment such as ice, elevation and activity modification have been recommended as appropriate. The Acute Opioid Therapy Informed Consent form has been completed and sent to medical records for scanning to chart. Please take your medication exactly as prescribed. Read all instructions that come with your medication. Using narcotic pain medication (such as oxycodone, hydromorphone (Dilaudid), morphine, fentanyl, ortramadol) may cause addiction. While addiction is more common in people with a personal or family history of addiction, it can occur in anyone. Taking more than the prescribed amount of medication or using with alcohol or other drugs can causeyou to stop breathing resulting in coma, brain damage, or . Opioids (oxycodone, hydromorphone/Dilaudid, morphine, fentanyl, tramadol) can slow reaction time, cause drowsiness, or cloud judgement. It is unsafe for you to drive or operate heavy machinery while taking this medication. Opioids (oxycodone, hydromorphone/Dilaudid, morphine, fentanyl, tramadol) are at risk of being diverted by anyone with access to your home. Opioids should be stored in a safe and secure place, such as a locked cabinet or safe. Unused opioids (oxycodone, hydromorphone/Dilaudid, morphine, fentanyl, tramadol) should be disposedof according to the label or patient information. If there are no specific instructions, medications may be returned to a take-back location or mixed with a small amount of water and an undesirable waste substance such as coffee grounds or cat litter. Sleep: Try to establish normal sleep patterns. Long naps during the day may make it hard for you tosleep at night. Use the pain medication at bedtime for the first week at home if needed. Bowel Movements: After surgery, your bowel movements may not be regular for you, but you should be able to get back to your daily routine quickly. Please make sure to take the stool softeners or mildlaxatives as prescribed to get back to your normal routine. If you do not have a bowel movement formore than 2 days or begin to experience moderate to severe abdominal pain, please call the office. Follow up appointments: You will see Dr Foster in 2 weeks with a chest Xray within one hour of the appointment. A letter will be mailed to you confirming your appointment information. No future appointments. documented in this encounter Medications at Time of Discharge Medication Sig Dispensed Refills Start Date End Date calcium carbonate-vitamin D3 600 mg-20 mcg (800 unit) Tablet Take 1 tablet by mouth daily. 03/29/2022 AMIOdarone (Paceron) 200 mg Tablet Take 1 tablet by mouth daily. 30 tablet 11 03/05/2022 Spiriva Respimat 2.5 mcg/actuation Mist 01/26/2022 acetaminophen (Tylenol) 500 mg Tablet Take 2 tablets by mouth every 6 hours. 30 tablet 1 02/10/2022 sildenafiL (VIAGRA) 50 mg Tablet TAKE 1/2 TO 1 TABLET BY MOUTH 30 MINUTES PRIOR TO SEXUAL ACTIVITY NEEDED. MAXIMUM DAILY DOSE 2 10/09/2021 UNABLE TO FIND Cbd gummies to help with smoking cessation. bupropion HCl (WELLBUTRIN ORAL) Take 150 mg by mouth daily. tamsulosin (Flomax) 0.4 mg Capsule Take 0.4 mg by mouth daily. hydrOXYchloroQUINE (Plaquenil) 200 mg Tablet Take 200 mg by mouth Daily. 04/04/2018 albuterol sulfate (Proair Digihaler) 90 mcg/actuation aero powdr breath act w/sensor 4 times daily as needed. cholecalciferol, Vitamin D3, (Vitamin D3) 1,000 unit Tablet Take 1 tablet by mouth daily. 11/01/2014 docusate sodium (Colace) 100 mg capsule Take 1 capsule by mouth 3 times daily for 10 days. 20 capsule 05/24/2022 06/03/2022 senna (Senokot) 8.6 mg tablet Take 2 tablets by mouth every evening. 60 tablet 05/24/2022 06/11/2022 oxyCODONE (Roxicodone) 5 mg tablet Take 1 tablet by mouth every 6 hours as needed for Pain. 30 tablet 05/24/2022 11/07/2022 rivaroxaban (Xarelto) 20 mg Tablet Take 20 mg by mouth daily. 06/12/2023 metoprolol succinate XL (Toprol-XL) 25 mg Tablet Sustained Release 24 hr Take 100 mg by mouth daily. 12/12/2022 documented as of this encounter Progress Notes * Cori Motta, RN - 05/24/2022 2:46 PM EDT Pt d/c to home per md order. Patient AOx4 hrr, lung sounds clear, no n/v sob or chest pain at time of discharge. +bs, voiding clear yellow urine. Patient ambulating with cane at this time. Pain well controlled with tylenol. All LDA's removed. All belongings home with patient. Prescriptions sent to pharmacy, all discharge instructions reviewed with patient. All questions answered. Please see flowsheet for full assessment. CORI MOTTA RN * Luis Miguel Perez, PT - 05/24/2022 12:44 PM EDT Physical Therapy Note Treatment Number PT: 3 Patient profile: Rajan Marquez is a 71 y.o. male admitted on 05/18/2022. Pt presented to same day surgery with history of left upper lobectomy ~ 1 year ago, with a chronic left pleural effusion with evidence of lung trapping and a previous biopsy suggesting a fibrothorax per review of MD notes. He underwent 05/18/22: Procedure(s) (LRB): @THORACOTOMY,DECORTICATION, PULMONARY, TOTAL ??(WRVU 26.65) (Left) BRONCHOSCOPY, DIAGNOSTIC ??(WRVU 2.53) (N/A) MODIFIER RIB RESECTION (Left) @MAJOR RECONSTRUCTION, CHEST WALL ??(WRVU 22.51) (Left). ?? He is being managed on , and he has had issues with tachycardia post op, also matt replaced overnight 05/20/22 due to clogging. He has had an air leak in left chest tube and Chest tube remained connected to continuous suction as of 05/21/22. Chest tube to water seat 05/23/22 Interval History: still with tachycardia, chest tube removed today. It was also brought to PT's attention that patient has nursing communication order for Arm in sling when OOB ; asked MD team to clarify orders (WB and ROM) prior to d/c- RN reports team to put orders in d/c summary for activity, ROM, and WB restrictions (as there were no orders in chart). Per d/c summary: As you recover from surgery exercise at least 30 minutes a day. This can be broken up into several times a day to achieve this goal at first, but you will be able to work up to doing all 30 minutes at once. Walking, treadmill, stationary bike, elliptical machine or there stationary exercise equipment is appropriate. Take your incentive spirometer home with you. You should use this every hour while awake, 10 times each. This helps you to exercise your respiratory muscles and to breathe deeply. Taking purposeful deep breaths can be just as effective. ?? Do not lift more than 10 pounds for 6-8 weeks (nothing heavier than a gallon of milk) unless otherwise instructed by Thoracic Surgery. Don???t exhaust yourself. Rest between activities as you recoverfrom your procedure. ?? Please keep you Left arm in the sling when you are up and out of bed. Please continue using the sling until your follow up with Dr Foster in 2 weeks. ?? Social History: Home set-up: Lives in a ranch style home with a basement and his partner. Bathroom Set-up: Walk in or tub shower on the main level, usually uses the tub shower. Stairs: ramp to enter. Baseline Mobility: hasn't been driving recently and has been using a cane for ~ 2 weeks. 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 Enjoys 4-wheeling, kayaking and yard work. Equipment at home: a rolling walker, a rollator walker, 2 canes, shower chair Fall history: 2 falls in the last year- 1 outside when he tripped and 1 inside when he was hurrying. ?? Precautions/Special Considerations: decreased safety awareness with lines and tubes, fall risk. neworder noted for Arm in sling when OOB; asked for ROM and WB clarifications that were to be put in d/c summary (see above)- pt educated to wait for ROM and use of UE until follow up with MD. Activity Orders: ambulate 4x/day, up for meals. Arm in sling when OOB Diet: Regular diet. Mobility and Positioning Recommendations: ?? Pt. To ambulate with cane in right hand with supervision to contact guard. Sling on LUE today. ?? RUE ROM and breathing ther-ex, educated to wait until MD visit for LUE ROM or ther-ex, and use sling when OOB on LUE ?? Please encourage up to chair for meal times as able. Subjective: She will be home, regarding if partner will be home with him. Objective: Patient seen for physical therapy and demonstrated the following: Pain: Reports left side sore at times. Vital Signs: Heart Rate: (!) 117 (120 with activity, 117 at end) BP: (see RN flow sheets) SpO2: 100 % (after walking 92%, end session 99% on RA) O2 Device: None (Room air) ?? Pt in the recliner and dressed when PT arrived, finishing nebulizer treatment; has spoke with Yusef WILSON regarding pt's status and need for updated activity orders; pt educated to avoid strain or use of LUE until MD follow up at this time, and also educated on use of sling when OOB. Pt verbalized understanding. ?? Pt able to hiren left sling in sitting with supervision. ?? Sit to stand with supervision and cues for safety. ?? Supine<->Sit to/from right side of bed with supervision. ?? Pt ambulated 200 ft with cane in right with contact guard to supervision, occ sway with distraction. ?? Stand to sit with supervision and cues for safety. ?? Sitting IS use to 1500ml with cues, AROM of RUE with deep breathing, and sitting ankle pumps, hip flexion, and knee extension. ?? Left in recliner with all needs in reach and aware to call for staff analyst assistance with all mobility. Education: Pt educated on ther-ex, breathing, LUE precautions and sling use- and to wait for LUE activity and ROM progression until MD follow, and to have supervision of staff analyst or family for safetywith all mobility Assessment: Rajan Marquez was seen today for physical therapy [facility] Pt friendly and pleasant and was educated on LUE sling use and limited use of LUE until MD follow up. He demonstrated awareness of sling use and this precaution. He still needs supervision to contact guard with ambulation with a cane in right hand at this time. He plans to d/c home with significant other later today. Recommend supervision with all mobility, and recommended home PT for safetyand mobility progression at home. Team updated on pt's status. Pt expected to d/c home with 01/10 support later today and home services set up. Pt will benefit from ongoing therapeutic interventions to achieve therapy goals. Discharge Recommendations: Based on the current findings, Anticipated Discharge Disposition (PT): home with home health, home with supervision (partner will be home with him) when medically ready for hospital discharge. Consult Recommendations: No other consults recommended at this time. Equipment needs: Anticipated Equipment Needs at Discharge (PT): (to use cane at home, and needs to use sling on LUE when up or OOB.) Physical Therapy Goals: To be achieved by 05/31/22:- (to continue with home PT) 1. Pt. to demonstrate knowledge of safety limitations and precautions and will appropriately request assistance for functional activities and to mobilize. 2. Pt. to demonstrate understanding of AROM and breathing exercises. 3. Pt. to perform bed mobility with modified independence. 4. Pt. to perform Sit<->stand and Stand Pivot transfers with modified independence using least restrictive device. 5. Pt. to ambulate 250 feet with modified independence using least restrictive device. 6. Pt. to ambulate up/down 3 step/stairs using one rail with supervision to prepare for a safe return to the community with support. 7. Family or caregiver to demonstrate understanding of therapeutic interventions to support the care of the patient. Plan: Therapy Frequency (PT): (d/c today with family support and home PT and RN recommended.) Time IN / OUT: 1212 to 1244 Total Minutes, Physical Therapy: 32 ; Billing Code: functional mobility, education, and d/c planning. LUIS MIGUEL PEREZ, PT Pager:[phone] Physical Therapy Inpatient Rehabilitation Department * Radha Cifuentes OTA - 05/24/2022 10:45 AM EDT Occupational Therapy Treatment Note Treatment Number OT: 3 Patient Dx: Patient profile: Rajan Marquez is a 71 y.o. 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 ?? Past Medical History Past Medical History: Diagnosis Date ??? BPH (benign prostatic hyperplasia) ? COPD (chronic obstructive pulmonary disease) ? Coronary artery disease ? GERD (gastroesophageal reflux disease) ? Hypertension ? Synovitis ? Past Surgical History Past Surgical History: Procedure Laterality Date ??? APPENDECTOMY ? IR THORACENTESIS LEFT ?? 11/08/2021 ?? IR Thoracentesis Left 11/08/2021 Forauer, Ramírez Ziegler MD [facility] INTERVENTIONL RAD ??? PRO BRONCHOSCOPY, DIAGNOSTIC N/A 03/29/2021 ?? BRONCHOSCOPY, DIAGNOSTIC (WRVU 2.78) performed by Gilmer Foster MD at [facility] MAIN OR ??? PRO BRONCHOSCOPY, DIAGNOSTIC N/A 02/08/2022 ?? BRONCHOSCOPY, DIAGNOSTIC (WRVU 2.78) performed by Gilmer Foster MD at [facility] MAIN OR ??? PRO BRONCHOSCOPY, DIAGNOSTIC N/A 05/18/2022 ?? BRONCHOSCOPY, DIAGNOSTIC (WRVU 2.53) performed by Gilmer Foster MD at [facility] OR ??? PRO DECORTICATION, PULMONARY, TOTAL Left 05/18/2022 ?? @THORACOTOMY,DECORTICATION, PULMONARY, TOTAL (WRVU 26.65) performed by [facility] OR ? ? PRO INJECTION ANES AGENT &/ STEROID INTERCOSTAL NERVE SINGLE LEVEL Left 03/29/2021 ?? NERVE BLOCK, INTERCOSTAL NERVE (WRVU 1.18) performed by Gilmer Foster MD at [facility] OR ??? PRO RECONSTRUCT INJURED CHEST Left 05/18/2022 ?? @MAJOR RECONSTRUCTION, CHEST WALL (WRVU 22.51) performed by Gilmer Foster MD at [facility] OR ??? PRO THORACOSCOPY SURG LOBECTOMY Left 03/29/2021 ?? @THORACOSCOPY,SURGICAL,W\LOBECTOMY,TOTAL OR SEGMENTAL (WRVU 24.64) performed by Gilmer Foster MD at [facility] OR ??? PRO THORACOSCOPY WITH BIOPSY OF PLEURA Left 02/08/2022 ?? THORACOSCOPY; WITH BIOPSY(IES) OF PLEURA (WRVU 4.58) performed by Gilmer Foster MD at [facility] OR ??? PRO THORACOSCOPY WITH MEDIASTINAL AND REGIONAL LYMPHADENECTOMY ?? 03/29/2021 ?? @THORACOSCOPY, SURG; W/MEDIASTINAL& REGIONAL LYMPHADENECTOMY (WRVU 4.12) performed by Gilmer Foster MD at [facility] OR ??? PRO THORACOSCOPY WITH WEDGE RESECTION AND ANATOMIC LUNG RESECTN Left 03/29/2021 ?? @THORACOSCOPY, SURG; W/DX WEDGE RESC W/ANATOMIC LUNG RESC (WRVU 3) performed by Gilmer Foster MD at [facility] OR ? Social History: Patient lives with significant other, 3 rambunctious pugs and 2 cats Home Setup: Single lvl home, ramp to enter, walk in shower DME: Shower chair, hand held shower, cane, rollator Baseline ADL/Mobility: Mod I w cane, Independent w ADLs. IADLs done by significant other (pt reports she drives, shops, cooks and cleans the house ?? Precautions/Special Considerations: Full code, fall risk, bilateral hard of hearing, LUE sling whenOOB for chest wall reconstruction Interval History: Epidural, matt and chest tube removed S: I'm going home today O: Patient seen for skilled OT treatment, and demonstrated the following: ?? Cognition: ?? Behavior / Mood: alert and cooperative ?? Alert and oriented to: person, place, time and situation ?? Follows commands: multi step ?? Attention: WFL ?? Safety awareness: decreased insight into deficits Self-Care: ?? Donned pants and underwear with setup assist. Able to stand and hike without LOB ?? Donned t-shirt with setup assist ?? Donned socks using figure 4 and donned shoes with setup assist ?? Educated on donning/doffing LUE sling Functional Mobility: ?? Independent supine to sit with increased effort. Pt states he plans to sleep in his recliner chair once he returns home ?? Sit to stand from bed with supervision ?? Ambulated bed to recliner with supervision and no AD, no LOB noted ?? Sit to stand from recliner x2 with supervision ?? Ambulated a household distance using cane in R hand, LUE supported in sling with no LOB. Verbal cues provided for pacing mobility tasks ?? Pt left resting in recliner chair at end of session with all needs within reach. Pt took phone call at end of session therefore therapist excused self Vitals: Stable on RA Pain: Reporting soreness, but no pain Education: Pt/family/caregiver education ongoing regarding: ADL, Exercise, Safety, Functional Mobility, Home Management, Recommendations and Discharge planning. Staff Communication: Patient status, treatment, and mobility recommendations discussed with nursing/other staff. ASSESSMENT: Pt seen today for OT treatment per POC. Performed dressing tasks, sit to stands and functional mobility tasks today. Pt states he has a supportive significant other at home and has a shower chair that he will use. Recommend pt return home with home health when medically ready. Pt will benefit from ongoing therapeutic interventions to achieve pt's and therapy goals Equipment needs at discharge: None Anticipated Discharge Disposition: home with supervision, home with home health Daily schedule / Staff Recommendations: ?? Transfer to recliner chair as appropriate with cane X2 (1 close supervision, 1 for line management) ?? Encourage participation in ADL's by providing set up A on tray table ?? Ambulate around unit with cane X2 for line management Occupational Therapy Goals: To be achieved by 06/04/22. Pt will be Mod I with toileting routine w LRAD Pt will be Independent with sling management Pt will recall and utilize compensatory breathing strategies PRN when engaged in functional tasks Pt will recall 3/3 energy conservation strategies (plan, pace, prioritize) Pt will participate in 2 grooming tasks while standing at sink Therapy Frequency (OT): 1-3 more times Total Minutes, Occupational Therapy: 25 (oh x2 ([id number]) Pager: [phone] GRAEME Velasco 05/24/2022 Occupational Therapy Rehabilitation Department * Katie Molina MD - 05/24/2022 9:00 AM EDT Acute Pain Medicine Service - Epidural Daily Management VITAL SIGNS: Visit Vitals BP 119/82 (BP Location (NBP): Left arm, Patient Position: Lying) Pulse (!) 124 Comment: 115 after walking, 123 end at rest, RN aware of vitals. Temp 36.7 ??C (98.1 ??F) (Oral) Resp 15 Ht 172.7 cm (5' 8) Wt 70.6 kg (155 lb 10.3 oz) SpO2 94% BMI 23.67 kg/m?? Body mass index is 23.67 kg/m??. Labs: WBC Date Value Ref Range Status 05/24/2022 6.7 4.0 - 9.5 x10(3)/mcL Final Hemoglobin Date Value Ref Range Status 05/24/2022 8.1 (L) 13.7 - 16.5 g/dL Final Hematocrit Date Value Ref Range Status 05/24/2022 25.8 (L) 40.5 - 48.5 % Final Platelets Date Value Ref Range Status 05/24/2022 262 145 - 357 x10(3)/mcL Final Operative Procedures: Procedure(s): @THORACOTOMY,DECORTICATION, PULMONARY, TOTAL (WRVU 26.65) BRONCHOSCOPY, DIAGNOSTIC (WRVU 2.53) MODIFIER RIB RESECTION @MAJOR RECONSTRUCTION, CHEST WALL (WRVU 22.51) APS Opioid Administration Hx All administrations since 05/23/2022 are shown below each listed medication. Other Order Route Rate Dose Action Date HYDROmorphone (pf) (10 mcg/mL), BUpivacaine (pf) 0.1% in sodium chloride 0.9% 250 mL epidural Epidural 250 mL Continued Bag 05/24/2022 HYDROmorphone (pf) (10 mcg/mL), BUpivacaine (pf) 0.1% in sodium chloride 0.9% 250 mL epidural Epidural 250 mL New Bag 05/23/2022 APMS EPIDURAL ROUNDIN05/24/2022 9:00 AM Average Numeric Rating Pain Score (0-10): 0 Post-Op Day: 6 Epidural Day: 7 Epidural Infusion (solution): HYDROmorphone 10 mcg/mL and BUpivacaine 0.1% Epidural Infusion Rate: 0 mL per hour PCEA Dose: 3 mL every 20 minutes PRN Out of Bed: Yes Ambulation: Yes Able to Use Incentive Spirometry: Yes Escalation of Care: No Tolerating Regular Diet: Yes Ileus: No Epidural Catheter Removed (Intact unless noted in Comments): Yes 05/24/2022 9:01 AM Mr. Marquez has had his chest tube removed and has tolerated the epidural wean. We removed the epidural without complication. APMA will sign off at this time. IOJ RN, have performed the documentation for this encounter in the presence of and acting as a scribe for Dr. Molina. [facility] Nurse: Oj Don RN Attending Physician:: Katie Molina MD I performed the above scribed service and agree with the accuracy of the note. KATIE MOLINA MD * Luis Miguel Perez, PT - 05/23/2022 1:04 PM EDT Physical Therapy Note Treatment Number PT: 2 Patient profile: Rajan Marquez is a 71 y.o. male admitted on 05/18/2022. Pt presented to same day surgery with history of left upper lobectomy ~ 1 year ago, with a chronic left pleural effusion with evidence of lung trapping and a previous biopsy suggesting a fibrothorax per review of MD notes. He underwent 05/18/22: Procedure(s) (LRB): @THORACOTOMY,DECORTICATION, PULMONARY, TOTAL ??(WRVU 26.65) (Left) BRONCHOSCOPY, DIAGNOSTIC ??(WRVU 2.53) (N/A) MODIFIER RIB RESECTION (Left) @MAJOR RECONSTRUCTION, CHEST WALL ??(WRVU 22.51) (Left). ?? He is being managed on -west, and he has had issues with tachycardia post op, also matt replaced overnight 05/20/22 due to clogging. He has had an air leak in left chest tube and Chest tube remained connected to continuous suction as of 05/21/22. Chest tube to water seat 05/23/22 Interval History: still with tachycardia, chest tube to water seal Social History: Home set-up: Lives in a ranch style home with a basement and his partner. Bathroom Set-up: Walk in or tub shower on the main level, usually uses the tub shower. Stairs: ramp to enter. Baseline Mobility: hasn't been driving recently and has been using a cane for ~ 2 weeks. 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 Enjoys 4-wheeling, kayaking and yard work. Equipment at home: a rolling walker, a rollator walker, 2 canes, shower chair Fall history: 2 falls in the last year- 1 outside when he tripped and 1 inside when he was hurrying. ?? Precautions/Special Considerations: decreased safety awareness with lines and tubes, fall risk. Lines: IV BUEs, epidural, left CT. Matt catheter. Activity Orders: ambulate 4x/day, up for meals. Diet: Regular diet. Mobility and Positioning Recommendations: ?? Pt. To ambulate with rolling walker with contact guard and assist with IV pole and cues for direction. ?? Encourage ROM and breathing ther-ex and more walks with staff daily. ?? Please encourage up to chair for meal times as able. Subjective: Until I feet steadier I am going to use the walker. Objective: Patient seen for physical therapy and demonstrated the following: Pain: No report of pain. Vital Signs: Heart Rate: (!) 124 (115 after walking, 123 end at rest, RN aware of vitals.) BP: (per RN during session 110/77) SpO2: 96 % (97% end post walk.) O2 Device: None (Room air) ?? Pt in the recliner and eager to mobilize after lunch. ?? Sit to stand with supervision and cues for safety. ?? Pt ambulated 200 ft with rolling walker with contact guard, assist with IV pole and cues for gait and not to get too close to rolling walker. ?? Stand to sit with supervision and cues for line management. ?? Sitting IS use to 1500ml with cues, AROM of UEs with deep breathing, and sitting ankle pumps andknee extension. ?? Left in recliner with all needs in reach and aware to call for staff analyst assistance with all mobility. Education: Pt educated on ther-ex, breathing, and to call for assistance with all mobility Assessment: Rajan Marquez was seen today for physical [facility] Pt friendly and agreeable to mobilize with encouragement, but needs assistance with line and tube management and cues for safety. He may be getting chest tube d/c'd tomorrow. He is aware to callfor assistance with mobility, and staff analyst aware of his status. Expect d/c to home with supports inplace when medically stable. Will continue PT to safely progress his mobility and function while heremains in-house. Pt will benefit from ongoing therapeutic interventions to achieve therapy goals. Discharge Recommendations: Based on the current findings, Anticipated Discharge Disposition (PT): home with home health, home with supervision when medically ready for hospital discharge. Consult Recommendations: No other consults recommended at this time. Equipment needs: Anticipated Equipment Needs at Discharge (PT): to be determined Physical Therapy Goals: To be achieved by 05/31/22:-The BELOW GOALS remain ONGOING- ?? 1. Pt. to demonstrate knowledge of safety limitations and precautions and will appropriately request assistance for functional activities and to mobilize. 2. Pt. to demonstrate understanding of AROM and breathing exercises. 3. Pt. to perform bed mobility with modified independence. 4. Pt. to perform Sit<->stand and Stand Pivot transfers with modified independence using least restrictive device. 5. Pt. to ambulate 250 feet with modified independence using least restrictive device. 6. Pt. to ambulate up/down 3 step/stairs using one rail with supervision to prepare for a safe return to the community with support. 7. Family or caregiver to demonstrate understanding of therapeutic interventions to support the care of the patient. Plan: Therapy Frequency (PT): 2-4 times/wk for as outlined in initial evaluation. Time IN / OUT: 1240 to 1304 Total Minutes, Physical Therapy: 24 ; Billing Code: functional mobility LUIS MIGUEL PEREZ, PT Pager:[phone] Physical Therapy Inpatient Rehabilitation Department * Messi Dooley, OT - 05/23/2022 11:50 AM EDT Occupational Therapy Treatment Note Treatment Number OT: 2 Patient Dx: Patient profile: Rajan Marquez is a 71 y.o. 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 ?? Past Medical History Past Medical History: Diagnosis Date ??? BPH (benign prostatic hyperplasia) ? COPD (chronic obstructive pulmonary disease) ? Coronary artery disease ? GERD (gastroesophageal reflux disease) ? Hypertension ? Synovitis ? Past Surgical History Past Surgical History: Procedure Laterality Date ??? APPENDECTOMY ? IR THORACENTESIS LEFT ?? 11/08/2021 ?? IR Thoracentesis Left 11/08/2021 Ramírez Ramirez MD [facility] INTERVENTIONL RAD ??? PRO BRONCHOSCOPY, DIAGNOSTIC N/A 03/29/2021 ?? BRONCHOSCOPY, DIAGNOSTIC (WRVU 2.78) performed by Gilmer Foster MD at [facility] MAIN OR ??? PRO BRONCHOSCOPY, DIAGNOSTIC N/A 02/08/2022 ?? BRONCHOSCOPY, DIAGNOSTIC (WRVU 2.78) performed by Gilmer Foster MD at [facility] MAIN OR ??? PRO BRONCHOSCOPY, DIAGNOSTIC N/A 05/18/2022 ?? BRONCHOSCOPY, DIAGNOSTIC (WRVU 2.53) performed by Gilmer Foster MD at [facility] MAIN OR ??? PRO DECORTICATION, PULMONARY, TOTAL Left 05/18/2022 ?? @THORACOTOMY,DECORTICATION, PULMONARY, TOTAL (WRVU 26.65) performed by Gilmer Foster MDat [facility] MAIN OR ? ? PRO INJECTION ANES AGENT &/ STEROID INTERCOSTAL NERVE SINGLE LEVEL Left 03/29/2021 ?? NERVE BLOCK, INTERCOSTAL NERVE (WRVU 1.18) performed by Gilmer Foster MD at [facility] MAIN OR ??? PRO RECONSTRUCT INJURED CHEST Left 05/18/2022 ?? @MAJOR RECONSTRUCTION, CHEST WALL (WRVU 22.51) performed by Gilmer Foster MD at [facility] OR ??? PRO THORACOSCOPY SURG LOBECTOMY Left 03/29/2021 ?? @THORACOSCOPY,SURGICAL,W\LOBECTOMY,TOTAL OR SEGMENTAL (WRVU 24.64) performed by Gilmer Foster MD at [facility] OR ??? PRO THORACOSCOPY WITH BIOPSY OF PLEURA Left 02/08/2022 ?? THORACOSCOPY; WITH BIOPSY(IES) OF PLEURA (WRVU 4.58) performed by Gilmer Foster MD at [facility] OR ??? PRO THORACOSCOPY WITH MEDIASTINAL AND REGIONAL LYMPHADENECTOMY ?? 03/29/2021 ?? @THORACOSCOPY, SURG; W/MEDIASTINAL& REGIONAL LYMPHADENECTOMY (WRVU 4.12) performed by Gilmer Foster MD at [facility] OR ??? PRO THORACOSCOPY WITH WEDGE RESECTION AND ANATOMIC LUNG RESECTN Left 03/29/2021 ?? @THORACOSCOPY, SURG; W/DX WEDGE RESC W/ANATOMIC LUNG RESC (WRVU 3) performed by iGlmer Foster MD at [facility] OR ? Social History: Patient lives with significant other, 3 rambunctious pugs and 2 cats Home Setup: Single lvl home, ramp to enter, walk in shower DME: Shower chair, hand held shower, cane, rollator Baseline ADL/Mobility: Mod I w cane, Independent w ADLs. IADLs done by significant other (pt reports she drives, shops, cooks and cleans the house ?? Precautions/Special Considerations: Full code, fall risk, chest tube with suction, epidural cath, urethral cath, bilateral hard of hearing Interval History: NSEO S: I slept well last night O: Patient seen for skilled OT treatment, and demonstrated the following: ?? Self-care: ?? Grooming: Supervision (pt brushed teeth and washed face while sitting EOB) ?? Bathing: Supervision (pt washed UB and LB with CHG wipes while sitting EOB) ?? Dressing: Min A (pt donned and doffed hospital gown with assistance for line management) ?? Functional Mobility: ?? Supine to sit: Supervision (pt utilized bed controls independently) ?? Sit to stand: Supervision w FWW ?? Ambulation: Close Supervision w FWW and assistance for line management ?? Stand to sit: Supervision w FWW and verbal cues for safety ?? Cognition: ?? Behavior / Mood: alert and cooperative ?? Alert and oriented to: person, place, time and situation ?? Follows commands: multi step ?? Attention: WFL ?? Safety awareness: decreased insight into deficits ?? Vitals: VSS on RA Pain: Pt reports no pain throughout session Education: Pt/family/caregiver education ongoing regarding: ADL, Exercise, Safety, Functional Mobility, Home Management, Recommendations and Discharge planning. Staff Communication: Patient status, treatment, and mobility recommendations discussed with nursing/other staff. ASSESSMENT: Pt seen for continuation of POC. Pt progressing towards goals but pt continues to require cues for safety d/t lines. RN reports catheter and chest tube to be removed tomorrow which will significantly improve independence. Pt will benefit from ongoing therapeutic interventions to achievept's and therapy goals Equipment needs at discharge: to be determined Anticipated Discharge Disposition: home with home health, home with supervision ??? Daily schedule / Staff Recommendations: Transfer to recliner chair as appropriate with cane X2 (1 close supervision, 1 for line management) ??? Encourage participation in ADL's by providing set up A on tray table Ambulate around unit with cane X2 for line management Occupational Therapy Goals: To be achieved by 06/04/22. Pt will be Mod I with toileting routine w LRAD Pt will be Independent with sling management Pt will recall and utilize compensatory breathing strategies PRN when engaged in functional tasks Pt will recall 3/3 energy conservation strategies (plan, pace, prioritize) Pt will participate in 2 grooming tasks while standing at sink Therapy Frequency (OT): 1-3 more times Total Minutes, Occupational Therapy: 34 ([facility] X2 ([id number])) Pager: [phone] Messi Dooley, OT 05/23/2022 Occupational Therapy Rehabilitation Department * Katie Molina MD - 05/23/2022 10:41 AM EDT Acute Pain Medicine Service - Epidural Daily Management VITAL SIGNS: Visit Vitals BP 119/85 (BP Location (NBP): Left arm, Patient Position: Lying) Pulse (!) 121 Temp 37.1 ??C (98.8 ??F) (Oral) Resp 14 Ht 172.7 cm (5' 8) Wt 73.1 kg (161 lb 2.5 oz) SpO2 94% BMI 24.50 kg/m?? Body mass index is 24.5 kg/m??. Labs: WBC Date Value Ref Range Status 05/23/2022 6.8 4.0 - 9.5 x10(3)/mcL Final Hemoglobin Date Value Ref Range Status 05/23/2022 8.2 (L) 13.7 - 16.5 g/dL Final Hematocrit Date Value Ref Range Status 05/23/2022 26.5 (L) 40.5 - 48.5 % Final Platelets Date Value Ref Range Status 05/23/2022 256 145 - 357 x10(3)/mcL Final Operative Procedures: Procedure(s): @THORACOTOMY,DECORTICATION, PULMONARY, TOTAL (WRVU 26.65) BRONCHOSCOPY, DIAGNOSTIC (WRVU 2.53) MODIFIER RIB RESECTION @MAJOR RECONSTRUCTION, CHEST WALL (WRVU 22.51) APMS EPIDURAL ROUNDIN05/23/2022 10:41 AM Average Numeric Rating Pain Score (0-10): 0 Post-Op Day: 5 Epidural Day: 6 Epidural Infusion (solution): HYDROmorphone 10 mcg/mL and BUpivacaine 0.1% Epidural Infusion Rate: 3 mL per hour PCEA Dose: 3 mL every 20 minutes PRN Out of Bed: Yes Ambulation: Yes Able to Use Incentive Spirometry: Yes Escalation of Care: No Tolerating Regular Diet: Yes Ileus: No Epidural Catheter Removed (Intact unless noted in Comments): No Rajan continues to deny pain and has not used his PCEA in the last 24 hours. He does have some nausea that is intermittent. He is tolerating a diet and endorses ROBF. The epidural dressing is intactand is free from signs of infection. ?? We made no changes to his epidural today and will plan to remove it once the CT has been removed, likely 05/24. Plan was discussed with the surgical team and patient. ?? I, OJ DON RN, have performed the documentation for this encounter in the presence of and acting as a scribe for Dr. Molina. [facility] Nurse: Oj Don RN Resident:: Jakob Dickerson DO Attending Physician:: Katie Molina MD I performed the above scribed service and agree with the accuracy of the note. KATIE MOLINA MD * Camilo Stevenson PA - 05/23/2022 9:19 AM EDT [facility] Department of Thoracic Surgery Inpatient Progress Note Patient Name: Rajan Marquez Patient : 1950 Patient Patient Location: [address] [place] [address] Attending Surgeon: GILMER FOSTER ID: Rajan Marquez is a 71 y.o. male who is 5 Days Post-Op s/p open left thoracotomy and total decortication. 24 Hr Events: - Persistent tachycardia 100s-110s, stable BP, asymptomatic - Hgb stable at 8.2 - No acute events overnight Subjective: Feeling well this morning. No complaints. Pain well controlled. Denies lightheadedness/dizziness, chest pain, back pain, shortness of breath, N/V, abdominal pain, or numbness/weakness of extremities. Passing flatus. Tolerating diet. Has been OOB to chair and walked around the unit yesterday without issue. Vitals: Temp: [36.6 ??C (97.9 ??F)-37.1 ??C (98.8 ??F)] Heart Rate: [121] Resp: [14-19] BP: (109-125)/(77-85) SpO2: [94 %-96 %] Heart Rate from SpO2: [107 bpm-122 bpm] Wt & BMI By Encounter Date Flowsheet Row Admission (Current) from 05/18/2022 in Surgical Unit Level 3 Wing D at [facility] Office Visit from 04/30/2022 in Thoracic [facility] [place] [facility] Weight 73.1 kilograms, or 161 pounds 2.5 ounces 1 05/23/2022 0600 72.1 kilograms, or 158 pounds 15.2 ounces 1 04/30/2022 1533 BMI 23.98 1 05/18/2022 0707 23.98 1 04/30/2022 1533 Physical Exam: General: Laying in bed. NAD. Pleasant. Neuro: Awake and alert. Speech clear and appropriate. Moves all extremities with equal strength, nofocal deficit. Lungs: CTA bilaterally, no wheezes, crackles, rhonchi. Resp effort good, non- labored on RA. Heart: RRR, S1S2, no murmurs, rubs, or gallops. Abdomen: Soft, NTND. Ext: Warm, well perfused. No peripheral edema. 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 No surrounding erythema, tenderness, drainage, or crepitus. Tubes/Lines/Drains: L Pleural CT, Matt, PIV, epidural I/O: I/O last 3 completed shifts: In: 1212.3 [P.O.:1100; I.V.:5; Other:107.3] Out: 3050 [Urine:2700; Other:350] L CT: 230cc/24hr, 80cc/12hr, SS, no air leak, -20 suction Labs: Last 3 wbc, hgb, hct plt Recent Labs 05/23/22 0352 05/22/22 0347 05/21/22 0409 WBC 6.8 7.3 6.7 HGB 8.2* 7.6* 7.9* HCT 26.5* 24.3* 25.6* PLATELET 256 236 226 Last 3 Lytes Recent Labs 05/23/22 0352 05/22/22 0347 05/21/22 0409 NA 135 137 137 K 3.6 3.8 3.5 CL 100 102 103 CO2 27 26 27 BUN 14 14 7* CREATININE 0.94 0.90 0.71* Diagnostics: CXR 05/23/22: Apically directed left chest tube in unchanged position with the side-hole projecting external to the rib cage. Improved air component of left hydropneumothorax. Persistent diffuse hazy opacification of the left lung. ?? Micro: Lung tissue culture (05/18/22): NGTD Assessment: Rajan Marquez is a 71 y.o. male who is 5 Days Post-Op s/p left thoracotomy and total decortication.He has been tachycardic this admission, currently in NSR. He continues to recover well postoperatively with good pain control via epidural (ASP managing). Plan is to remove epidural once chest tube removed. He has been unmotivated to ambulate and spend time out of bed, will heavily encourage that today. Will keep chest tube in place today on water seal given output. Plan: Neuro: Epidural w/ PCEA per APS recommendations. Tylenol, Bupropion CV: Metop, Amio, HDS, monitor vitals Pulm: wean NC as tolerated to maintain SpO >90%, pulm toilet, coughing/DB/IS 10x/hr while awake,albuterol nebs, Spiriva, transition CT to water seal GI: Regular diet, RBOs, Zofran PRN : continue matt, monitor I/Os Heme: SQH ID: periop abx complete, SHELLEY Endo: SHELLEY Rheum: Plaquenil PPx: SQH, SCDs, compression stockings, early ambulation, LUE sling when OOB for chest wall reconstruction Dispo: Floor status, Full code All plans formulated in discussion with and directed by attending thoracic surgeon Dr. Foster. STEVE Black 05/23/2022 Thoracic Surgery Service Pager [phone] * Katie Molina MD - 05/22/2022 9:34 AM EDT Acute Pain Medicine Service - Epidural Daily Management VITAL SIGNS: Visit Vitals BP 118/82 (BP Location (NBP): Left arm, Patient Position: Lying) Pulse (!) 115 Temp 36.5 ??C (97.7 ??F) (Oral) Resp 18 Ht 172.7 cm (5' 8) Wt 77 kg (169 lb 11.2 oz) Comment: bed scale SpO2 93% BMI 25.80 kg/m?? Body mass index is 25.8 kg/m??. Labs: WBC Date Value Ref Range Status 05/22/2022 7.3 4.0 - 9.5 x10(3)/mcL Final Hemoglobin Date Value Ref Range Status 05/22/2022 7.6 (L) 13.7 - 16.5 g/dL Final Hematocrit Date Value Ref Range Status 05/22/2022 24.3 (L) 40.5 - 48.5 % Final Platelets Date Value Ref Range Status 05/22/2022 236 145 - 357 x10(3)/mcL Final Operative Procedures: Procedure(s): @THORACOTOMY,DECORTICATION, PULMONARY, TOTAL (WRVU 26.65) BRONCHOSCOPY, DIAGNOSTIC (WRVU 2.53) MODIFIER RIB RESECTION @MAJOR RECONSTRUCTION, CHEST WALL (WRVU 22.51) [facility] EPIDURAL ROUNDIN05/22/2022 9:34 AM Average Numeric Rating Pain Score (0-10): 0 Post-Op Day: 4 Epidural Day: 5 Epidural Infusion (solution): HYDROmorphone 10 mcg/mL and BUpivacaine 0.1% Epidural Infusion Rate: 3 mL per hour PCEA Dose: 3 mL every 20 minutes PRN Out of Bed: Yes Ambulation: Yes Able to Use Incentive Spirometry: Yes Escalation of Care: No Tolerating Regular Diet: Yes Ileus: No Epidural Catheter Removed (Intact unless noted in Comments): No Rajan continues to deny pain and has not used his PCEA in the last 24 hours. He does have some nausea that is intermittent. He is tolerating a diet and endorses ROBF. The epidural dressing was reinforced on rounds but is free from signs of infection. We made no changes to his epidural today and will plan to remove it once the CT has been removed, likely Tuesday 05/23. Plan was discussed with the surgical team and patient. IOJ RN, have performed the documentation for this encounter in the presence of and acting as a scribe for Dr. Molina. [facility] Nurse: Oj Don RN Resident:: Jakob Dickerson DO Attending Physician:: Katie Molina MD I performed the above scribed service and agree with the accuracy of the note. KATIE MOLINA MD * Renu Donald PA - 05/22/2022 6:40 AM EDT Images from the original note were not included. [facility] Department of Thoracic Surgery Inpatient Progress Note Patient Name: Rajan Marquez Patient : 1950 Patient Patient Location: [address] [place] [address] Attending Surgeon: GILMER FOSTER ID: Rajan Marquez is a 71 y.o. male who is 4 Days Post-Op s/p open left thoracotomy and total decortication. 24 Hr Events: - Persistent tachycardia 100s-110s, stable BP, asymptomatic - Drifting Hgb (7.6), asymptomatic - No acute events overnight Subjective: Feeling well this morning. No complaints. Pain well controlled. Denies lightheadedness/dizziness, chest pain, back pain, shortness of breath, N/V, abdominal pain, or numbness/weakness of extremities. Passing flatus. BM+. Tolerating diet. Has been OOB to chair. Has ambulated around unit w/ PT once yesterday. Vitals: Temp: [36.5 ??C (97.7 ??F)-37 ??C (98.6 ??F)] Heart Rate: [115] Resp: [16-18] BP: (104-121)/(76-85) SpO2: [92 %-96 %] Heart Rate from SpO2: [89 bpm-119 bpm] Wt & BMI By Encounter Date Flowsheet Row Admission (Current) from 05/18/2022 in Surgical Unit Level 3 Wing D at [facility] Office Visit from 04/30/2022 in Thoracic Surgery [place] [facility] Weight 77 kg (169 lb 11.2 oz) [bed scale] 1 05/22/2022 0557 72.1 kg (158 lb 15.2 oz) 1 04/30/2022 1533 BMI 23.98 1 05/18/2022 0707 23.98 1 04/30/2022 1533 Physical Exam: General: Laying in bed. NAD. Pleasant. Neuro: Awake and alert. Speech clear and appropriate. Moves all extremities with equal strength, nofocal deficit. Lungs: CTA bilaterally, no wheezes, crackles, rhonchi. Resp effort good, non- labored on RA. Heart: RRR, S1S2, no murmurs, rubs, or gallops. Abdomen: Soft, NTND. Ext: Warm, well perfused. No peripheral edema. 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 No surrounding erythema, tenderness, drainage, or crepitus. Tubes/Lines/Drains: L Pleural CT, Matt, PIV, epidural I/O: I/O last 3 completed shifts: In: 3374.2 [P.O.:1708; I.V.:1560; Other:106.2] Out: 3940 [Urine:3450; Other:490] L CT: 290cc/24hr, 120cc/12hr, 400cc/previous day, SS, no air leak, -20 suction Labs: Last 3 wbc, hgb, hct plt Recent Labs 05/22/22 0347 05/21/22 0409 05/20/22 0408 WBC 7.3 6.7 7.5 HGB 7.6* 7.9* 8.0* HCT 24.3* 25.6* 25.9* PLATELET 236 226 207 Last 3 Lytes Recent Labs 05/22/22 0347 05/21/22 0409 05/20/22 0408 NA 137 137 133* K 3.8 3.5 3.8 CL 102 103 102 CO2 26 27 23 BUN 14 7* 11 CREATININE 0.90 0.71* 0.79* Diagnostics: No new imaging Micro: Lung tissue culture (05/18/22): NGTD Assessment: Rajan Marquez is a 71 y.o. male who is 4 Days Post-Op s/p left thoracotomy and total decortication.He has been tachycardic this admission, currently in NSR. His left CT has had an intermittent air leak, but that is now resolved. He continues to recover well postoperatively with good pain control via epidural (ASP managing). Plan is to remove epidural once chest tube removed. Slowly drifting hemoglobin, possibly due to net positive fluid balance over the past day and overall admission. Will continue to monitor. He has been unmotivated to ambulate and spend time out of bed, will heavily encourage that today. Keep CT to -20 suction x24 hrs now that air leak resolved. Evaluate with AM CXR tomorrow. Wean O2 as tolerated to maintain SpO2 >90% Heavily encourage patient to mobilize, ambulate, OOB to chair. Work with PT/OT Epidural per APS - HOLD 0600 SQH tomorrow for anticipated removal Maintain matt until epidural removed Lasix 20 IV x1 w/ 20mEq K Acute postoperative blood loss anemia likely with hemodilution component, asymptomatic when ambulating, continue to monitor closely Micro cultures have not been updated since 05/19 - will call micro today to f/u Pulmonary toilet - DB/IS 10x/hr while awake LUE sling when OOB for chest wall reconstruction Plan: Neuro: Epidural w/ PCEA per APS recommendations. Tylenol, Bupropion CV: Metop, Amio, HDS, monitor vitals Pulm: wean NC as tolerated to maintain SpO >90%, pulm toilet, coughing/DB/IS 10x/hr while awake,albuterol nebs, Spiriva, CT to -20 sxn GI: Regular diet, RBOs, Zofran PRN : maintain Matt, monitor I/Os Renal: k prn, lasix 20 IV x1 Heme: SQH, ?resume home Xarelto ID: periop abx complete, SHELLEY Endo: SHELLEY Rheum: Plaquenil PPx: SQH, SCDs, compression stockings, early ambulation Dispo: Floor status, Full code All plans formulated in discussion with and directed by attending thoracic surgeon Dr. Foster. STEVE Patel 05/22/2022 Thoracic Surgery Service Pager [phone] * Devorah Rivera RN - 05/22/2022 4:40 AM EDT OUTCOME EVALUATION NOTE: OUTCOME SUMMARY: Pt A&Ox4, pleasant and cooperative with care. Delirium precautions maintained. Complaints of pain to L CT site- scheduled pain medications and epidural infusion in place. Pain well controlled. Nocomplaints of SOB/PETERSON tolerating RA. CT to continuous sx -20 with continuous air leak, MD aware. Output recorded in eflowsheets. No complaints of N/V. Matt draining selma colored urine. No BM overnight. .Masimo monitoring in place. Pt intermittently tachycardic. Other VSSS. Fall safety precautionsmaintained. Bed alarm on for safety. Call within reach. Hourly rounding performed. PLAN MOVING FORWARD: Pain Control Mobilize CT monitoring INDIVIDUALIZED FALL PREVENTION INTERVENTIONS: Patient-specific fall risk factors per assessment: [current deficits]: Hospital Environment, Pain, Medications Assistance [level of assistance required for transfers and ambulation]: X1 assist with cane Supervision [direct monitoring required during toileting and ADLs]: Eyes on Hands on Surveillance [continuous indirect monitoring]: Marlys, Patient Safety Rounding * Luis Miguel Perez, PT - 05/21/2022 5:48 PM EDT Physical Therapy Evaluation Patient profile: Rajan Marquez is a 71 y.o. male admitted on 05/18/2022. Pt presented to same day surgery with history of left upper lobectomy ~ 1 year ago, with a chronic left pleural effusion with evidence of lung trapping and a previous biopsy suggesting a fibrothorax per review of MD notes. He underwent 05/18/22: Procedure(s) (LRB): @THORACOTOMY,DECORTICATION, PULMONARY, TOTAL (WRVU 26.65) (Left) BRONCHOSCOPY, DIAGNOSTIC (WRVU 2.53) (N/A) MODIFIER RIB RESECTION (Left) @MAJOR RECONSTRUCTION, CHEST WALL (WRVU 22.51) (Left). He is being managed on , and he has had issues with tachycardia post op, also matt replaced overnight 05/20/22 due to clogging. He has had an air leak in left chest tube and Chest tube remainsconnected to continuous suction. Patient with the following active problems: Past Medical History: Diagnosis Date ??? BPH (benign prostatic hyperplasia) ??? COPD (chronic obstructive pulmonary disease) ??? Coronary artery disease ??? GERD (gastroesophageal reflux disease) ??? Hypertension ??? Synovitis Active Non-Hospital Problems Diagnosis ??? Atrial flutter ??? Pleural effusion ??? Mass of upper lobe of left lung ??? ADHD ??? COPD (chronic obstructive pulmonary disease) ??? Depression ??? Lupus anticoagulant positive ??? Palpitations ??? Tobacco abuse ??? Unspecified osteoarthritis, unspecified site Past Surgical History: Procedure Laterality Date ??? APPENDECTOMY ??? IR THORACENTESIS LEFT 11/08/2021 IR Thoracentesis Left 11/08/2021 ForRamírez caldera MD [facility] INTERVENTIONL RAD ??? PRO BRONCHOSCOPY, DIAGNOSTIC N/A 03/29/2021 BRONCHOSCOPY, DIAGNOSTIC (WRVU 2.78) performed by Gilmer Foster MD at [facility] OR ??? PRO BRONCHOSCOPY, DIAGNOSTIC N/A 02/08/2022 BRONCHOSCOPY, DIAGNOSTIC (WRVU 2.78) performed by Gilmer Foster MD at [facility] OR ??? PRO BRONCHOSCOPY, DIAGNOSTIC N/A 05/18/2022 BRONCHOSCOPY, DIAGNOSTIC (WRVU 2.53) performed by Gilmer Foster MD at [facility] OR ??? PRO DECORTICATION, PULMONARY, TOTAL Left 05/18/2022 @THORACOTOMY,DECORTICATION, PULMONARY, TOTAL (WRVU 26.65) performed by Gilmer Foster MD [facility] OR ? ? PRO INJECTION ANES AGENT &/ STEROID INTERCOSTAL NERVE SINGLE LEVEL Left 03/29/2021 NERVE BLOCK, INTERCOSTAL NERVE (WRVU 1.18) performed by Gilmer Foster MD at [facility] OR ??? PRO RECONSTRUCT INJURED CHEST Left 05/18/2022 @MAJOR RECONSTRUCTION, CHEST WALL (WRVU 22.51) performed by Gilmer Foster MD at [facility] OR ??? PRO THORACOSCOPY SURG LOBECTOMY Left 03/29/2021 @THORACOSCOPY,SURGICAL,W\LOBECTOMY,TOTAL OR SEGMENTAL (WRVU 24.64) performed by Johana Foster MD at [facility] OR ??? PRO THORACOSCOPY WITH BIOPSY OF PLEURA Left 02/08/2022 THORACOSCOPY; WITH BIOPSY(IES) OF PLEURA (WRVU 4.58) performed by Gilmer Foster MD at [facility] OR ??? PRO THORACOSCOPY WITH MEDIASTINAL AND REGIONAL LYMPHADENECTOMY 03/29/2021 @THORACOSCOPY, SURG; W/MEDIASTINAL& REGIONAL LYMPHADENECTOMY (WRVU 4.12) performed by Gilmer Foster MD at [facility] MAIN OR ??? PRO THORACOSCOPY WITH WEDGE RESECTION AND ANATOMIC LUNG RESECTN Left 03/29/2021 @THORACOSCOPY, SURG; W/DX WEDGE RESC W/ANATOMIC LUNG RESC (WRVU 3) performed by Johana Foster MD at [facility] MAIN OR Social History: Home set-up: Lives in a ranch style home with a basement and his partner. Bathroom Set-up: Walk in or tub shower on the main level, usually uses the tub shower. Stairs: ramp to enter. Baseline Mobility: hasn't been driving recently and has been using a cane for ~ 2 weeks. 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 Enjoys 4-wheeling, kayaking and yard work. Equipment at home: a rolling walker, a rollator walker, 2 canes, shower chair Fall history: 2 falls in the last year- 1 outside when he tripped and 1 inside when he was hurrying. Precautions/Special Considerations: decreased safety awareness with lines and tubes, fall risk. Lines: IV BUEs, epidural, left CT to suction continuously. Matt catheter. Activity Orders: ambulate 4x/day, up for meals. Diet: Regular diet. Mobility and Positioning Recommendations: ?? Pt. to utilize rolling walker and cues and contact guard of one for ambulation and a 2nd to assist with lines for ambulation and transfers with staff. ?? Please encourage up to chair for meal times as able. ?? Pt encouraged to ambulate frequently with staff, getting into the bathroom for toileting and walking out in the soto >/= 3 times daily as able. Subjective: ???I only have pain if I move.?? Objective: Pt seen for evaluation today. Pain: No pain at rest, and no reports of pain with activity today. Vital Signs: Heart Rate: (108-114 at rest, up to 120's with walking) BP: 111/78 SpO2: 96 % (after rest and walking 98% on RA) O2 Device: None (Room air) Mental Status: alert, oriented to person, place, and time and some cues needed for safety with linemanagement. Vision: reports no need for glasses. Skin: thoracotomy incision was dry, IVs BUEs, matt catheter, CT to suction left side, epidural Musculoskeletal: ROM: AROM of BUEs and BLEs WFLs. Strength: not tested, but appears functional Sensation: intact to light touch. Bed Mobility: Supine to Sit: to right side of bed via rolling with contact guard and assist with lines. Sit to Supine: left sitting EOB eating dinner- so not done- bed alarm on, and RN monitoring. Transfers: Sit to Stand: with contact guard and cues for safety and lines. Stand to Sit: with contact guard and cues Gait: Distance: 200 ft Device used: rolling walker Level of assist: Contact guard and 2nd to assist with lines, verbal cues for direction and safety. Gait mechanics: step to gait, with cues for direction, unsteady with turns. Stairs: not done. Balance: Sitting Static: steady Standing Static: steady with walker Standing Dynamic / Gait: Contact guard with sway with turns. Education: patient has educated on Bed mobility, Transfers, Assistive device/technique, Exercise, Breathing exercises, Positioning, Safety , Precautions/protocol, Equipment use, Gait , Activity pacing/Energy conservation, Home program, Role of therapy, Balance, Discharge planning and to call for staff analyst assistance with all mobility and needs reinforcement. Patient status, treatment, and mobility recommendations discussed with nursing. Ther-ex: AROM reviewed, and IS use to 2000ml with cues. Assessment: Rajan Marquez was seen today for physical therapy evaluation. Patient presenting friendly and cooperative with many lines and tubes in place, he needed cues for safety and assist with line management today. He needed 2 assist with walker for safety with mobility and line management today. He desires to return home with his partner when medically stable and expect steady gains in his mobility and function as he recovers post operatively. Will continue PT to safely progress patient's mobility and function while he remains in-house working toward a safe d/c plan. Discharge Recommendations: Based on the current findings, Anticipated Discharge Disposition (PT): home with supervision, home with home health when medically ready for hospital discharge. Consult Recommendations: No other consults recommended at this time. Equipment needs: Anticipated Equipment Needs at Discharge (PT): to be determined Goals: To be achieved by 05/31/22: 1. Pt. to demonstrate knowledge of safety limitations and precautions and will appropriately request assistance for functional activities and to mobilize. 2. Pt. to demonstrate understanding of AROM and breathing exercises. 3. Pt. to perform bed mobility with modified independence. 4. Pt. to perform Sit<->stand and Stand Pivot transfers with modified independence using least restrictive device. 5. Pt. to ambulate 250 feet with modified independence using least restrictive device. 6. Pt. to ambulate up/down 3 step/stairs using one rail with supervision to prepare for a safe return to the community with support. 7. Family or caregiver to demonstrate understanding of therapeutic interventions to support the care of the patient. Plan: Therapy Frequency (PT): 2-4 times/wk for therapy including balance training, bed mobility training, gait training, home exercise program, manual therapy techniques, motor coordination training,neuromuscular re-education, patient/family education, postural re-education, range of motion, stairtraining, strengthening, stretching, transfer training and d/c planning, functional mobility training, selfcare and home management training. 2017 PT Evaluation Code Rationale: ?? Diagnosis & Pertinent Co-Morbidities, personal factors, and present illness affecting Plan of Care: (see above); Additional personal factors or co- morbidities that impact plan: ?? Total # of Factors: 0 1-2 3+ x ?? Examination of body system impairments, functional limitations and behaviors, and/or participation restrictions. Addressing 1-2 elements Addressing 3 + elements x Addressing 4 + elements ?? Clinical presentation: See assessment above. Stable/Uncomplicated Evolving/Fluctuating Symptoms Unstable/Unpredictable x ?? Clinical decision making of moderate complexity based on pt's functional performance as outlinedin this evaluation. Time IN / OUT: 1717 to 1748 Total Minutes, Physical Therapy: 31 Billing Code: evaluation LUIS MIGUEL PEREZ, PT Pager: [phone] Physical Therapy Inpatient Rehabilitation Department * Karri Ellis MD - 05/21/2022 9:38 AM EDT Acute Pain Medicine Service - Epidural Daily Management VITAL SIGNS: Visit Vitals BP 124/83 (BP Location (NBP): Left arm, Patient Position: Lying) Pulse (!) 109 Temp 36.6 ??C (97.9 ??F) (Oral) Resp 18 Ht 172.7 cm (5' 8) Wt 77.3 kg (170 lb 8 oz) Comment: bed; pt declined getting up at this time SpO2 95% BMI 25.92 kg/m?? Body mass index is 25.92 kg/m??. Labs: WBC Date Value Ref Range Status 05/21/2022 6.7 4.0 - 9.5 x10(3)/mcL Final Hemoglobin Date Value Ref Range Status 05/21/2022 7.9 (L) 13.7 - 16.5 g/dL Final Hematocrit Date Value Ref Range Status 05/21/2022 25.6 (L) 40.5 - 48.5 % Final Platelets Date Value Ref Range Status 05/21/2022 226 145 - 357 x10(3)/mcL Final Operative Procedures: Procedure(s): @THORACOTOMY,DECORTICATION, PULMONARY, TOTAL (WRVU 26.65) BRONCHOSCOPY, DIAGNOSTIC (WRVU 2.53) MODIFIER RIB RESECTION @MAJOR RECONSTRUCTION, CHEST WALL (WRVU 22.51) APS Opioid Administration Hx All administrations since 05/20/2022 are shown below each listed medication. Other Order Route Rate Dose Action Date HYDROmorphone (pf) (10 mcg/mL), BUpivacaine (pf) 0.1% in sodium chloride 0.9% 250 mL epidural Epidural 250 mL New Bag 05/20/2022 Epidural Rate/Dose Change 05/20/2022 APMS EPIDURAL ROUNDIN05/21/2022 9:38 AM Average Numeric Rating Pain Score (0-10): 0 Post-Op Day: 3 Epidural Day: 4 Epidural Infusion (solution): HYDROmorphone 10 mcg/mL and BUpivacaine 0.1% Epidural Infusion Rate: 3 mL per hour PCEA Dose: 3 mL every 20 minutes PRN PIEB Dose: 0 mL every minutes Out of Bed: Yes Ambulation: Yes Able to Use Incentive Spirometry: Yes Escalation of Care: No Tolerating Regular Diet: Yes Ileus: No Epidural Catheter Removed (Intact unless noted in Comments): No Rajan is doing very well. His pain has been well-controlled overnight and he has used his PCEA minimally (3 of 4 doses received in the last 24 hours). Rajan is tolerating a diet and endorses passing flatus. He has also ambulated and OT is working with him now. The epidural insertion site is free from signs of infection and the dressing remains occlusive. Plan: We made no changes to the epidural regimen today and will plan to remove the catheter when his chest tube is removed. I, MESSI HANLEY RN, have performed the documentation for this encounter in the presence of andacting as a scribe for Dr. Karri Ellis. Anesthesia Staff ([facility]) Patient seen and examined on daily rounds. I agree with the above assessment and plan. APMA Nurse: Messi Hanley RN Resident:: Jakob Dickerson DO Attending Physician:: Karri Ellis MD * Renu Donald PA - 05/21/2022 8:11 AM EDT Images from the original note were not included. [facility] Department of Thoracic Surgery Inpatient Progress Note Patient Name: Rajan Marquez Patient : 1950 Patient Patient Location: [address] [place] [address] Attending Surgeon: GILMER FOSTER ID: Rajan Marquez is a 71 y.o. male who is 3 Days Post-Op s/p open left thoracotomy and total decortication. 24hrs/Subjective: - Matt replaced overnight 2/2 clogging; making adequate urine - Continues to be tachycardic 100s-110s; EKG sinus tachycardia - otherwise hemodynamically normal Patient feels well this morning with minimal pain. Reports he hasn't been using his PCEA as it was causing him nausea. Ambulated yesterday. +Flatus/-BM. Vitals: Temp: [36.4 ??C (97.5 ??F)-37.1 ??C (98.8 ??F)] Heart Rate: -- Resp: [16-18] BP: (118-132)/(72-83) SpO2: [93 %-98 %] Heart Rate from SpO2: [99 bpm-118 bpm] Wt & BMI By Encounter Date Flowsheet Row Admission (Current) from 05/18/2022 in Surgical Unit Level 3 Wing D at [facility] Office Visit from 04/30/2022 in Thoracic Surgery at [facility] Weight 77.3 kg (170 lb 8 oz) [bed, pt declined getting up at this time] 1 05/21/2022 0600 72.1 kg (158 lb 15.2 oz) 1 04/30/2022 1533 BMI 23.98 1 05/18/2022 0707 23.98 1 04/30/2022 1533 Physical Exam: Gen: NAD, pleasant, laying in bed HEENT: normocephalic, atraumatic, EOMI, sclerae anicteric Card: Tachycardic, regular rhythm, no M/G/R Pulm: CTAB, non-labored breathing on RA, L CT to -20 with 1 column intermittent airleak appreciated, secured to skin Abd: soft, NT, ND : matt draining CYU Ext: warm, dry, no edema Neuro: A&Ox3, CN II-XII grossly intact, nonfocal, conversant Wounds/Incisions: Left thoracotomy CDI with steri strips. I/O: I/O last 3 completed shifts: In: 3392.4 [P.O.:1150; I.V.:2076.7; Other:165.8] Out: 3655 [Urine:3125; Other:530] CT: Left, 400cc past 24 hours / 320cc day prior Labs: Recent Results (from the past 72 hour(s)) POCT Glucose Result Value Ref Range POC Glucose 93 65 - 199 mg/dL EKG 12 Lead Result Value Ref Range Ventricular rate 115 BPM Atrial Rate 115 BPM P-R Interval 176 ms QRS Duration 106 ms Q-T Interval 356 ms QTC Calculated (Bezet) 492 ms Calculated P [place] 106 degrees Calculated R [place] 71 degrees Calculated T [place] -169 degrees INTERPRETATION Sinus tachycardia Incomplete left bundle block Minimal voltage criteria for LVH, may be normal variant ( Yash product ) Nonspecific ST and T wave abnormality Abnormal ECG When compared with ECG of 21-FEB-2022 06:21, Sinus rhythm has replaced Atrial flutter Incomplete left bundle block is now Present BLOOD GAS 2 ARTERIAL Result Value Ref Range pH Art 7.36 7.35 - 7.45 pCO2 Art 42 35 - 45 mmHg pO2 Art 226 (H) 85 - 104 mmHg HCO3 Art 22.9 20.0 - 26.0 mmol/L BE Art -2.6 -3.0 - 3.0 mmol/L Hgb Blood Gas 9.5 (L) 13.7 - 16.5 g/dL O2HB Art 98.5 (H) 94.0 - 97.0 % COHB Art 1.0 % METHB Art 0.3 <=1.5 % Na Whole Blood 133 (L) 135 - 145 mmol/L K Whole Blood 3.8 3.5 - 5.0 mmol/L ICa Whole Blood 1.18 1.15 - 1.33 mmol/L CL Whole Blood 104 98 - 107 mmol/L Gluc Whole Bld 107 65 - 199 mg/dL Lactate WB 1.5 0.5 - 2.2 mmol/L Tissue culture Specimen: Lung Left pleural grumous Result Value Ref Range Tissue Culture No growth to date. Gram Stain Few Neutrophils seen No microorganisms seen. Anaerobic Culture Specimen: Lung Left pleural grumous Result Value Ref Range Anaerobic Culture No anaerobic organisms isolated to date Surgical Pathology Report Result Value Ref Range Surgical Pathology Report [id number] Location: OR; OR11; A The signing pathologist has (i) examined the relevant preparation(s) for the specimen(s) and (ii) rendered or confirmed the diagnosis(es). . Frozen Section FROZEN SECTION DIAGNOSIS CFS - VISCERAL PLEURAL RIND. FROZEN, excision for frozen section Inflamed pleura, no evidence of malignancy (healthcare sales representative sample) 05/18/22 11:27 Electronically signed by: Malia Lacy MD Verified: 05/18/2022 11:29 Pathologist Performed at: -[facility] Dept. of Pathology, [place] [address] Healthcare Advisory Services Manager: Maria Ines Marrufo MD, GILMA, CARLITOS Certificate: [id number] This intraoperative consultation should be interpreted as a preliminary diagnosis pending review of the entire specimen and special studies, if any. A final Surgical Pathology report will follow this preliminary Frozen Section report(s). Frozen Section FROZEN SECTION DIAGNOSIS AFS - Left pleural rind, excision for frozen section : Chronic pleuritis and fibrin, negative for malignancy 05/18/22 11:20 Electronically signed by: Malia Lacy MD Verified: 05/18/2022 11:25 Pathologist Performed at: [facility] Dept. of Pathology, [place] [address] Healthcare Advisory Services Manager: Maria Ines Marrufo MD, GILMA, [facility] Certificate: [id number] This intraoperative consultation should be interpreted as a preliminary diagnosis pending review of the entire specimen and special studies, if any. A final Surgical Pathology report will follow this preliminary Frozen Section report(s). BLOOD GAS 2 ARTERIAL Result Value Ref Range pH Art 7.34 (L) 7.35 - 7.45 pCO2 Art 42 35 - 45 mmHg pO2 Art 290 (H) 85 - 104 mmHg HCO3 Art 22.2 20.0 - 26.0 mmol/L BE Art -3.5 (L) -3.0 - 3.0 mmol/L Hgb Blood Gas 9.2 (L) 13.7 - 16.5 g/dL O2HB Art 98.5 (H) 94.0 - 97.0 % COHB Art 1.2 % METHB Art 0.3 <=1.5 % Na Whole Blood 133 (L) 135 - 145 mmol/L K Whole Blood 4.2 3.5 - 5.0 mmol/L ICa Whole Blood 1.16 1.15 - 1.33 mmol/L CL Whole Blood 104 98 - 107 mmol/L Gluc Whole Bld 130 65 - 199 mg/dL Lactate WB 1.0 0.5 - 2.2 mmol/L FIO2 Art 50 % Flow Art 1.0 LPM PF Ratio Art 580 ABO/Rh Typing Result Value Ref Range ABORh Type A Pos Antibody screen Result Value Ref Range Ab Screen Interp Negative Expires at 2359 on: 05/21/2022 ABORH Recheck Status Result Value Ref Range ABORH Recheck Order Order Placed ABORH Type Recheck Complete Type and Screen Validity Result Value Ref Range T&S only valid at [facility] Basic Metabolic Panel (non-fasting) Result Value Ref Range Glucose Lvl 117 65 - 199 mg/dL BUN 15 10 - 20 mg/dL Creatinine 0.96 0.80 - 1.50 mg/dL Sodium 138 135 - 145 mmol/L Potassium 4.4 3.5 - 5.0 mmol/L Chloride 106 98 - 107 mmol/L CO2 22 22 - 31 mmol/L Anion Gap 10 5 - 15 mmol/L Calcium 8.3 (L) 8.5 - 10.5 mg/dL Estimated GFR 84 >=60 mL/min/1.73 m?? Hemogram Result Value Ref Range WBC 11.4 (H) 4.0 - 9.5 x10(3)/mcL RBC 3.19 (L) 4.58 - 5.54 x10(6)/mcL Hemoglobin 8.4 (L) 13.7 - 16.5 g/dL Hematocrit 26.5 (L) 40.5 - 48.5 % MCV 83.1 82.9 - 93.1 fL MCH 26.3 (L) 27.5 - 32.1 pg MCHC 31.7 (L) 32.0 - 35.7 g/dL Platelets 289 145 - 357 x10(3)/mcL RDWSD 52.3 (H) 36.0 - 45.0 fL RDWCV 17.2 (H) 11.4 - 13.8 % MPV 8.4 7.6 - 12.9 fL nRBC % Auto 0.0 % nRBC Abs Auto 0.000 0.000 - 0.000 x10(3)/mcL Differential, Automated Result Value Ref Range Neutrophils % 85.2 % Neutr Abs (ANC) 9.74 (H) 1.70 - 6.10 x10(3)/mcL Lymphocytes % 7.3 % Lymphocytes Abs 0.8 (L) 0.9 - 3.2 x10(3)/mcL Monocytes % 6.8 % Monocyte Abs 0.8 0.3 - 0.9 x10(3)/mcL Eosinophils % 0.2 % Eosinophils Abs 0.0 0.0 - 0.4 x10(3)/mcL Basophils % 0.2 % Basophils Abs 0.0 0.0 - 0.1 x10(3)/mcL Immature Gran % 0.30 % Kecia Gran Abs 0.04 0.00 - 0.04 x10(3)/mcL Basic Metabolic Panel (non-fasting) Result Value Ref Range Glucose Lvl 111 65 - 199 mg/dL BUN 13 10 - 20 mg/dL Creatinine 0.93 0.80 - 1.50 mg/dL Sodium 135 135 - 145 mmol/L Potassium 4.8 3.5 - 5.0 mmol/L Chloride 102 98 - 107 mmol/L CO2 24 22 - 31 mmol/L Anion Gap 9 5 - 15 mmol/L Calcium 8.5 8.5 - 10.5 mg/dL Estimated GFR 87 >=60 mL/min/1.73 m?? Hemogram Result Value Ref Range WBC 11.1 (H) 4.0 - 9.5 x10(3)/mcL RBC 3.23 (L) 4.58 - 5.54 x10(6)/mcL Hemoglobin 8.5 (L) 13.7 - 16.5 g/dL Hematocrit 26.8 (L) 40.5 - 48.5 % MCV 83.0 82.9 - 93.1 fL MCH 26.3 (L) 27.5 - 32.1 pg MCHC 31.7 (L) 32.0 - 35.7 g/dL Platelets 245 145 - 357 x10(3)/mcL RDWSD 52.6 (H) 36.0 - 45.0 fL RDWCV 17.3 (H) 11.4 - 13.8 % MPV 8.4 7.6 - 12.9 fL nRBC % Auto 0.0 % nRBC Abs Auto 0.000 0.000 - 0.000 x10(3)/mcL Differential, Automated Result Value Ref Range Neutrophils % 80.9 % Neutr Abs (ANC) 8.95 (H) 1.70 - 6.10 x10(3)/mcL Lymphocytes % 9.3 % Lymphocytes Abs 1.0 0.9 - 3.2 x10(3)/mcL Monocytes % 9.2 % Monocyte Abs 1.0 (H) 0.3 - 0.9 x10(3)/mcL Eosinophils % 0.0 % Eosinophils Abs 0.0 0.0 - 0.4 x10(3)/mcL Basophils % 0.1 % Basophils Abs 0.0 0.0 - 0.1 x10(3)/mcL Immature Gran % 0.50 % Kecia Gran Abs 0.05 (H) 0.00 - 0.04 x10(3)/mcL Basic Metabolic Panel (non-fasting) Result Value Ref Range Glucose Lvl 99 65 - 199 mg/dL BUN 11 10 - 20 mg/dL Creatinine 0.79 (L) 0.80 - 1.50 mg/dL Sodium 133 (L) 135 - 145 mmol/L Potassium 3.8 3.5 - 5.0 mmol/L Chloride 102 98 - 107 mmol/L CO2 23 22 - 31 mmol/L Anion Gap 8 5 - 15 mmol/L Calcium 8.3 (L) 8.5 - 10.5 mg/dL Estimated GFR 94 >=60 mL/min/1.73 m?? Hemogram Result Value Ref Range WBC 7.5 4.0 - 9.5 x10(3)/mcL RBC 3.07 (L) 4.58 - 5.54 x10(6)/mcL Hemoglobin 8.0 (L) 13.7 - 16.5 g/dL Hematocrit 25.9 (L) 40.5 - 48.5 % MCV 84.4 82.9 - 93.1 fL MCH 26.1 (L) 27.5 - 32.1 pg MCHC 30.9 (L) 32.0 - 35.7 g/dL Platelets 207 145 - 357 x10(3)/mcL RDWSD 53.7 (H) 36.0 - 45.0 fL RDWCV 17.4 (H) 11.4 - 13.8 % MPV 8.7 7.6 - 12.9 fL nRBC % Auto 0.0 % nRBC Abs Auto 0.000 0.000 - 0.000 x10(3)/mcL Differential, Automated Result Value Ref Range Neutrophils % 74.7 % Neutr Abs (ANC) 5.59 1.70 - 6.10 x10(3)/mcL Lymphocytes % 12.6 % Lymphocytes Abs 0.9 0.9 - 3.2 x10(3)/mcL Monocytes % 11.9 % Monocyte Abs 0.9 0.3 - 0.9 x10(3)/mcL Eosinophils % 0.0 % Eosinophils Abs 0.0 0.0 - 0.4 x10(3)/mcL Basophils % 0.3 % Basophils Abs 0.0 0.0 - 0.1 x10(3)/mcL Immature Gran % 0.50 % Kecia Gran Abs 0.04 0.00 - 0.04 x10(3)/mcL Basic Metabolic Panel (non-fasting) Result Value Ref Range Glucose Lvl 84 65 - 199 mg/dL BUN 7 (L) 10 - 20 mg/dL Creatinine 0.71 (L) 0.80 - 1.50 mg/dL Sodium 137 135 - 145 mmol/L Potassium 3.5 3.5 - 5.0 mmol/L Chloride 103 98 - 107 mmol/L CO2 27 22 - 31 mmol/L Anion Gap 7 5 - 15 mmol/L Calcium 8.7 8.5 - 10.5 mg/dL Estimated GFR 97 >=60 mL/min/1.73 m?? Hemogram Result Value Ref Range WBC 6.7 4.0 - 9.5 x10(3)/mcL RBC 3.01 (L) 4.58 - 5.54 x10(6)/mcL Hemoglobin 7.9 (L) 13.7 - 16.5 g/dL Hematocrit 25.6 (L) 40.5 - 48.5 % MCV 85.0 82.9 - 93.1 fL MCH 26.2 (L) 27.5 - 32.1 pg MCHC 30.9 (L) 32.0 - 35.7 g/dL Platelets 226 145 - 357 x10(3)/mcL RDWSD 53.6 (H) 36.0 - 45.0 fL RDWCV 17.3 (H) 11.4 - 13.8 % MPV 9.1 7.6 - 12.9 fL nRBC % Auto 0.0 % nRBC Abs Auto 0.000 0.000 - 0.000 x10(3)/mcL Differential, Automated Result Value Ref Range Neutrophils % 72.4 % Neutr Abs (ANC) 4.83 1.70 - 6.10 x10(3)/mcL Lymphocytes % 14.5 % Lymphocytes Abs 1.0 0.9 - 3.2 x10(3)/mcL Monocytes % 12.3 % Monocyte Abs 0.8 0.3 - 0.9 x10(3)/mcL Eosinophils % 0.1 % Eosinophils Abs 0.0 0.0 - 0.4 x10(3)/mcL Basophils % 0.4 % Basophils Abs 0.0 0.0 - 0.1 x10(3)/mcL Immature Gran % 0.30 % Kecia Gran Abs 0.02 0.00 - 0.04 x10(3)/mcL EKG 12 Lead Result Value Ref Range Ventricular rate 118 BPM Atrial Rate 118 BPM P-R Interval 216 ms QRS Duration 106 ms Q-T Interval 324 ms QTC Calculated (Bezet) 454 ms Calculated R [place] 82 degrees Calculated T [place] -102 degrees INTERPRETATION Sinus tachycardia with 1st degree A-V block Minimal voltage criteria for LVH, may be normal variant ( Yash product ) Nonspecific T wave abnormality Abnormal ECG When compared with ECG of 18-MAY-2022 08:00, (unconfirmed) Sinus rhythm has replaced Atrial flutter Incomplete left bundle block is no longer Present Diagnostics: No new imaging Micro: Lung tissue culture (05/18/22): NGTD Assessment: Rajan Marquez is a 71 y.o. male who is 3 Days Post-Op s/p left thoracotomy and total decortication.He has been tachycardic this admission, currently in NSR. He continues to have an intermittent air leak in his left chest tube. Plan: Neuro: Epidural w/ PCEA per APS recommendations. Tylenol, COMMUNITY HEALTH COORDINATOR Bupropion Card: May consider increasing Metoprolol to 25mg BID, amiodarone (200mg daily) Pulm: IS/cough/deep breathe/OOB/ambulate. Continue left CT to -20 suction, monitor output. COMMUNITY HEALTH COORDINATOR spiriva, albuterol FENGI: Stop IVF, Regular diet. RBOs Renal/: Matt in place - will keep until epidural out, monitor UOP Heme: SQH, holding home Xarelto ID: SHELLEY Endo: SHELLEY MSK: COMMUNITY HEALTH COORDINATOR hydroxychloroquine for synovitis PPx: scds; SQH, Ambulate 4x a day. OOB. Other: Left arm in sling when OOB Dispo: full code, floor status All plans formulated in discussion with and directed by attending thoracic surgeon Dr. Foster. STEVE Peñaloza 05/21/2022 Thoracic Surgery Service Pager [phone] * Devorah Rivera RN - 05/21/2022 4:15 AM EDT OUTCOME EVALUATION NOTE: OUTCOME SUMMARY: Pt A&Ox4, pleasant and cooperative with care. Delirium precautions maintained. Complaints of pain to L CT site- scheduled pain medications and epidural infusion in place. Pain well controlled. Nocomplaints of SOB/PETERSON tolerating RA. CT to continuous sx -20 with continuous air leak, aware. Output recorded in eflowsheets. Intermittent nausea at start of shift- prn compazine given with good effect. Overnight patient complaining of bladder feeling full even with matt catheter in place. Bladder scanned for >800 cc; attempted to advance/ adjust catheter; repeat bladder scan 649. paged and ok to exchange catheter. Matt catheter exchanged with goodUO and relief of symptoms. No BM; however patient passing gas- bowel regimen administered will CTM. IVF infusing as ordered.Masimo monitoring in place. Pt intermittently tachycardic. Other VSSS. Fall safety precautions maintained. Bedalarm on for safety. Call within reach. Hourly rounding performed. PLAN MOVING FORWARD: Pain Control Mobilize CT monitoring INDIVIDUALIZED FALL PREVENTION INTERVENTIONS: Patient-specific fall risk factors per assessment: [current deficits]: Hospital Environment, Pain, Medications Assistance [level of assistance required for transfers and ambulation]: X1 assist with cane Supervision [direct monitoring required during toileting and ADLs]: Eyes on Hands on Surveillance [continuous indirect monitoring]: Masimo, Patient Safety Rounding * Karri Ellis MD - 05/20/2022 8:32 AM EDT Acute Pain Medicine Service - Epidural Daily Management VITAL SIGNS: Visit Vitals BP 108/72 (BP Location (NBP): Left arm, Patient Position: Lying) Pulse (!) 109 Temp 36.9 ??C (98.4 ??F) (Oral) Resp 18 Ht 172.7 cm (5' 8) Wt 75.4 kg (166 lb 3.2 oz) SpO2 95% BMI 25.27 kg/m?? Body mass index is 25.27 kg/m??. Labs: WBC Date Value Ref Range Status 05/20/2022 7.5 4.0 - 9.5 x10(3)/mcL Final Hemoglobin Date Value Ref Range Status 05/20/2022 8.0 (L) 13.7 - 16.5 g/dL Final Hematocrit Date Value Ref Range Status 05/20/2022 25.9 (L) 40.5 - 48.5 % Final Platelets Date Value Ref Range Status 05/20/2022 207 145 - 357 x10(3)/mcL Final Operative Procedures: Procedure(s): @THORACOTOMY,DECORTICATION, PULMONARY, TOTAL (WRVU 26.65) BRONCHOSCOPY, DIAGNOSTIC (WRVU 2.53) MODIFIER RIB RESECTION @MAJOR RECONSTRUCTION, CHEST WALL (WRVU 22.51) APS Opioid Administration Hx All administrations since 05/19/2022 are shown below each listed medication. Other Order Route Rate Dose Action Date HYDROmorphone (pf) (10 mcg/mL), BUpivacaine (pf) 0.1% in sodium chloride 0.9% 250 mL epidural Epidural 250 mL New Bag 05/19/2022 APMS EPIDURAL ROUNDING: Average Numeric Rating Pain Score (0-10): 1 Post-Op Day: 2 Epidural Day: 3 Epidural Infusion (solution): HYDROmorphone 10 mcg/mL and BUpivacaine 0.1% Epidural Infusion Rate: 6 mL per hour PCEA Dose: 3 mL every 20 minutes PRN Out of Bed: No Ambulation: No Able to Use Incentive Spirometry: Yes Escalation of Care: No Tolerating Regular Diet: Yes Pain is well controlled. Epidural puncture site is without signs of infection. We will continue current epidural settings given rib resection x [address] indwelling. * Vaughn Davis MD - 05/20/2022 7:39 AM EDT [facility] Department of Thoracic Surgery Inpatient Progress Note Patient Name: Rajan Marquez Patient : 1950 Patient Patient Location: [address] [place] [address] Attending Surgeon: GILMER FOSTER ID: Rajan Marquez is a 71 y.o. male who is 2 Days Post-Op s/p open left thoracotomy and total decortication. 24hrs/Subjective: Pain is well-controlled with epidural, reports that his breathing is improved compared to pre-op. - NAEO - CT w/ 320 cc output (down from 570 previously) - No complaints this morning, nausea reportedly resolved. Vitals: Temp: [36.4 ??C (97.5 ??F)-36.7 ??C (98.1 ??F)] Heart Rate: [109-110] Resp: [16-18] BP: (82-107)/(51-71) SpO2: [97 %-100 %] Heart Rate from SpO2: [78 bpm-110 bpm] Wt & BMI By Encounter Date Flowsheet Row Admission (Current) from 05/18/2022 in Surgical Unit Level 3 Wing D at [facility] Office Visit from 04/30/2022 in Thoracic Surgery [place] [facility] Weight 75.4 kg (166 lb 3.2 oz) 1 05/20/2022 0527 72.1 kg (158 lb 15.2 oz) 1 04/30/2022 1533 BMI 23.98 1 05/18/2022 0707 23.98 1 04/30/2022 1533 Physical Exam: Gen: NAD, pleasant, laying in bed HEENT: normocephalic, atraumatic, EOMI, sclerae anicteric Card: RRR, gallop Pulm: no audible wheeze, non-labored breathing on RA, L CT to -20 with 1 column near-continuous/intermittent airleak appreciated, incision dressing c/d/i Abd: soft, NT, BS+ : matt draining CYU Ext: warm, dry, no edema Neuro: A&Ox3, CN II-XII grossly intact, nonfocal, conversant I/O: I/O last 3 completed shifts: In: 3137.6 [P.O.:600; I.V.:2361; Other:176.6] Out: 1740 [Urine:1100; Other:640] Labs: Recent Results (from the past 72 hour(s)) POCT Glucose Result Value Ref Range POC Glucose 93 65 - 199 mg/dL EKG 12 Lead Result Value Ref Range Ventricular rate 115 BPM Atrial Rate 115 BPM P-R Interval 176 ms QRS Duration 106 ms Q-T Interval 356 ms QTC Calculated (Bezet) 492 ms Calculated P [place] 106 degrees Calculated R [place] 71 degrees Calculated T [place] -169 degrees INTERPRETATION Sinus tachycardia Incomplete left bundle block Minimal voltage criteria for LVH, may be normal variant ( Yash product ) Nonspecific ST and T wave abnormality Abnormal ECG When compared with ECG of 21-FEB-2022 06:21, Sinus rhythm has replaced Atrial flutter Incomplete left bundle block is now Present BLOOD GAS 2 ARTERIAL Result Value Ref Range pH Art 7.36 7.35 - 7.45 pCO2 Art 42 35 - 45 mmHg pO2 Art 226 (H) 85 - 104 mmHg HCO3 Art 22.9 20.0 - 26.0 mmol/L BE Art -2.6 -3.0 - 3.0 mmol/L Hgb Blood Gas 9.5 (L) 13.7 - 16.5 g/dL O2HB Art 98.5 (H) 94.0 - 97.0 % COHB Art 1.0 % METHB Art 0.3 <=1.5 % Na Whole Blood 133 (L) 135 - 145 mmol/L K Whole Blood 3.8 3.5 - 5.0 mmol/L ICa Whole Blood 1.18 1.15 - 1.33 mmol/L CL Whole Blood 104 98 - 107 mmol/L Gluc Whole Bld 107 65 - 199 mg/dL Lactate WB 1.5 0.5 - 2.2 mmol/L Tissue culture Specimen: Lung Left pleural grumous Result Value Ref Range Tissue Culture No growth to date. Gram Stain Few Neutrophils seen No microorganisms seen. Anaerobic Culture Specimen: Lung Left pleural grumous Result Value Ref Range Anaerobic Culture No anaerobic organisms isolated to date Surgical Pathology Report Result Value Ref Range Surgical Pathology Report [id number] Location: OR; OR11; A The signing pathologist has (i) examined the relevant preparation(s) for the specimen(s) and (ii) rendered or confirmed the diagnosis(es). . Frozen Section FROZEN SECTION DIAGNOSIS CFS - VISCERAL PLEURAL RIND. FROZEN, excision for frozen section Inflamed pleura, no evidence of malignancy (healthcare sales representative sample) 05/18/22 11:27 Electronically signed by: Malia Lacy MD Verified: 05/18/2022 11:29 Pathologist Performed at: -[facility] Dept. [place]ology, [place] [address] Healthcare Advisory Services Manager: Maria Ines Marrufo MD, GILMA, CLIA Certificate: [id number] This intraoperative consultation should be interpreted as a preliminary diagnosis pending review of the entire specimen and special studies, if any. A final Surgical Pathology report will follow this preliminary Frozen Section report(s). Frozen Section FROZEN SECTION DIAGNOSIS AFS - Left pleural rind, excision for frozen section : Chronic pleuritis and fibrin, negative for malignancy 05/18/22 11:20 Electronically signed by: Malia Lacy MD Verified: 05/18/2022 11:25 Pathologist Performed at: [facility] Dept. of Pathology, [place] [address] Healthcare Advisory Services Manager: Maria Ines Marrufo MD, GILMA, CLIA Certificate: [id number] This intraoperative consultation should be interpreted as a preliminary diagnosis pending review of the entire specimen and special studies, if any. A final Surgical Pathology report will follow this preliminary Frozen Section report(s). BLOOD GAS 2 ARTERIAL Result Value Ref Range pH Art 7.34 (L) 7.35 - 7.45 pCO2 Art 42 35 - 45 mmHg pO2 Art 290 (H) 85 - 104 mmHg HCO3 Art 22.2 20.0 - 26.0 mmol/L BE Art -3.5 (L) -3.0 - 3.0 mmol/L Hgb Blood Gas 9.2 (L) 13.7 - 16.5 g/dL O2HB Art 98.5 (H) 94.0 - 97.0 % COHB Art 1.2 % METHB Art 0.3 <=1.5 % Na Whole Blood 133 (L) 135 - 145 mmol/L K Whole Blood 4.2 3.5 - 5.0 mmol/L ICa Whole Blood 1.16 1.15 - 1.33 mmol/L CL Whole Blood 104 98 - 107 mmol/L Gluc Whole Bld 130 65 - 199 mg/dL Lactate WB 1.0 0.5 - 2.2 mmol/L FIO2 Art 50 % Flow Art 1.0 LPM PF Ratio Art 580 ABO/Rh Typing Result Value Ref Range ABORh Type A Pos Antibody screen Result Value Ref Range Ab Screen Interp Negative Expires at 2359 on: 05/21/2022 ABORH Recheck Status Result Value Ref Range ABORH Recheck Order Order Placed ABORH Type Recheck Complete Type and Screen Validity Result Value Ref Range T&S only valid at [facility] Basic Metabolic Panel (non-fasting) Result Value Ref Range Glucose Lvl 117 65 - 199 mg/dL BUN 15 10 - 20 mg/dL Creatinine 0.96 0.80 - 1.50 mg/dL Sodium 138 135 - 145 mmol/L Potassium 4.4 3.5 - 5.0 mmol/L Chloride 106 98 - 107 mmol/L CO2 22 22 - 31 mmol/L Anion Gap 10 5 - 15 mmol/L Calcium 8.3 (L) 8.5 - 10.5 mg/dL Estimated GFR 84 >=60 mL/min/1.73 m?? Hemogram Result Value Ref Range WBC 11.4 (H) 4.0 - 9.5 x10(3)/mcL RBC 3.19 (L) 4.58 - 5.54 x10(6)/mcL Hemoglobin 8.4 (L) 13.7 - 16.5 g/dL Hematocrit 26.5 (L) 40.5 - 48.5 % MCV 83.1 82.9 - 93.1 fL MCH 26.3 (L) 27.5 - 32.1 pg MCHC 31.7 (L) 32.0 - 35.7 g/dL Platelets 289 145 - 357 x10(3)/mcL RDWSD 52.3 (H) 36.0 - 45.0 fL RDWCV 17.2 (H) 11.4 - 13.8 % MPV 8.4 7.6 - 12.9 fL nRBC % Auto 0.0 % nRBC Abs Auto 0.000 0.000 - 0.000 x10(3)/mcL Differential, Automated Result Value Ref Range Neutrophils % 85.2 % Neutr Abs (ANC) 9.74 (H) 1.70 - 6.10 x10(3)/mcL Lymphocytes % 7.3 % Lymphocytes Abs 0.8 (L) 0.9 - 3.2 x10(3)/mcL Monocytes % 6.8 % Monocyte Abs 0.8 0.3 - 0.9 x10(3)/mcL Eosinophils % 0.2 % Eosinophils Abs 0.0 0.0 - 0.4 x10(3)/mcL Basophils % 0.2 % Basophils Abs 0.0 0.0 - 0.1 x10(3)/mcL Immature Gran % 0.30 % Kecia Gran Abs 0.04 0.00 - 0.04 x10(3)/mcL Basic Metabolic Panel (non-fasting) Result Value Ref Range Glucose Lvl 111 65 - 199 mg/dL BUN 13 10 - 20 mg/dL Creatinine 0.93 0.80 - 1.50 mg/dL Sodium 135 135 - 145 mmol/L Potassium 4.8 3.5 - 5.0 mmol/L Chloride 102 98 - 107 mmol/L CO2 24 22 - 31 mmol/L Anion Gap 9 5 - 15 mmol/L Calcium 8.5 8.5 - 10.5 mg/dL Estimated GFR 87 >=60 mL/min/1.73 m?? Hemogram Result Value Ref Range WBC 11.1 (H) 4.0 - 9.5 x10(3)/mcL RBC 3.23 (L) 4.58 - 5.54 x10(6)/mcL Hemoglobin 8.5 (L) 13.7 - 16.5 g/dL Hematocrit 26.8 (L) 40.5 - 48.5 % MCV 83.0 82.9 - 93.1 fL MCH 26.3 (L) 27.5 - 32.1 pg MCHC 31.7 (L) 32.0 - 35.7 g/dL Platelets 245 145 - 357 x10(3)/mcL RDWSD 52.6 (H) 36.0 - 45.0 fL RDWCV 17.3 (H) 11.4 - 13.8 % MPV 8.4 7.6 - 12.9 fL nRBC % Auto 0.0 % nRBC Abs Auto 0.000 0.000 - 0.000 x10(3)/mcL Differential, Automated Result Value Ref Range Neutrophils % 80.9 % Neutr Abs (ANC) 8.95 (H) 1.70 - 6.10 x10(3)/mcL Lymphocytes % 9.3 % Lymphocytes Abs 1.0 0.9 - 3.2 x10(3)/mcL Monocytes % 9.2 % Monocyte Abs 1.0 (H) 0.3 - 0.9 x10(3)/mcL Eosinophils % 0.0 % Eosinophils Abs 0.0 0.0 - 0.4 x10(3)/mcL Basophils % 0.1 % Basophils Abs 0.0 0.0 - 0.1 x10(3)/mcL Immature Gran % 0.50 % Kecia Gran Abs 0.05 (H) 0.00 - 0.04 x10(3)/mcL Basic Metabolic Panel (non-fasting) Result Value Ref Range Glucose Lvl 99 65 - 199 mg/dL BUN 11 10 - 20 mg/dL Creatinine 0.79 (L) 0.80 - 1.50 mg/dL Sodium 133 (L) 135 - 145 mmol/L Potassium 3.8 3.5 - 5.0 mmol/L Chloride 102 98 - 107 mmol/L CO2 23 22 - 31 mmol/L Anion Gap 8 5 - 15 mmol/L Calcium 8.3 (L) 8.5 - 10.5 mg/dL Estimated GFR 94 >=60 mL/min/1.73 m?? Hemogram Result Value Ref Range WBC 7.5 4.0 - 9.5 x10(3)/mcL RBC 3.07 (L) 4.58 - 5.54 x10(6)/mcL Hemoglobin 8.0 (L) 13.7 - 16.5 g/dL Hematocrit 25.9 (L) 40.5 - 48.5 % MCV 84.4 82.9 - 93.1 fL MCH 26.1 (L) 27.5 - 32.1 pg MCHC 30.9 (L) 32.0 - 35.7 g/dL Platelets 207 145 - 357 x10(3)/mcL RDWSD 53.7 (H) 36.0 - 45.0 fL RDWCV 17.4 (H) 11.4 - 13.8 % MPV 8.7 7.6 - 12.9 fL nRBC % Auto 0.0 % nRBC Abs Auto 0.000 0.000 - 0.000 x10(3)/mcL Differential, Automated Result Value Ref Range Neutrophils % 74.7 % Neutr Abs (ANC) 5.59 1.70 - 6.10 x10(3)/mcL Lymphocytes % 12.6 % Lymphocytes Abs 0.9 0.9 - 3.2 x10(3)/mcL Monocytes % 11.9 % Monocyte Abs 0.9 0.3 - 0.9 x10(3)/mcL Eosinophils % 0.0 % Eosinophils Abs 0.0 0.0 - 0.4 x10(3)/mcL Basophils % 0.3 % Basophils Abs 0.0 0.0 - 0.1 x10(3)/mcL Immature Gran % 0.50 % Kecia Gran Abs 0.04 0.00 - 0.04 x10(3)/mcL Diagnostics: XR Chest One View Result Date: 05/18/2022 EXAMINATION: XR CHEST ONE VIEW CLINICAL HISTORY: s/p thoracotomy and total decortication evaluate for lung expansion TECHNIQUE: 1 view of the chest COMPARISON: CT scan of the chest April 16, 2022 FINDINGS: Thickened left pleural reflection. Loculated small to moderate left hydropneumothorax. New left subcutaneous emphysema. Left chest tube in place. Chronic left lung volume loss. Right lung clear. Cardiomediastinal silhouette unchanged. Loculated small to moderate left hydropneumothorax with thickened left pleural reflection and new left subcutaneous emphysema. Thank you for letting us participate in the care of this patient. If youare a health care provider and have any questions regarding this report, please contact the number below. For patients who have questions please contact the health critical care unit manager that requested your imaging first. Electronically signed by: Maryann Magallanes MD, [facility] ([phone]), at 05/18/2022 4:02 PM Assessment: Rajan Marquez is a 71 y.o. male who is 2 Days Post-Op s/p robotic, converted to open left thoracotomy and total decortication. He is currently in stable condition and recovering well postoperatively. Maintain posterior CT strict suction and use a sling when OOB for left arm. OOB today x3 with pulmonary toilet. PT consulted. Plan: Neuro: Epidural w/ PCEA. COMMUNITY HEALTH COORDINATOR bupropion Card: HDS, COMMUNITY HEALTH COORDINATOR metoprolol, amiodarone (200mg daily) Pulm: IS/cough/deep breathe/OOB/ambulate. Continue left CT to -20 suction, monitor output. COMMUNITY HEALTH COORDINATOR spiriva, albuterol FENGI: LR @100 ml/hr, Regular diet. RBOs Renal/: Matt in place, monitor UOP Heme: SQH ID: SHELLEY Endo: SHELLEY MSK: COMMUNITY HEALTH COORDINATOR hydroxychloroquine for synovitis PPx: scds; SQH, Ambulate 4x a day. OOB. Dispo: full code, floor status Vaughn Davis MD 05/20/2022 Thoracic Surgery Service Pager [phone] * Karri Ellis MD - 05/19/2022 9:31 AM EST Acute Pain Medicine Service - Epidural Daily Management VITAL SIGNS: Visit Vitals BP (!) 88/64 (BP Location (NBP): Left arm, Patient Position: Lying) Comment: notified Pulse (!) 104 Temp 36.4 ??C (97.5 ??F) (Oral) Resp 18 Ht 172.7 cm (5' 8) Wt 71.5 kg (157 lb 11.2 oz) SpO2 99% BMI 23.98 kg/m?? Body mass index is 23.98 kg/m??. Labs: WBC Date Value Ref Range Status 05/19/2022 11.1 (H) 4.0 - 9.5 x10(3)/mcL Final Hemoglobin Date Value Ref Range Status 05/19/2022 8.5 (L) 13.7 - 16.5 g/dL Final Hematocrit Date Value Ref Range Status 05/19/2022 26.8 (L) 40.5 - 48.5 % Final Platelets Date Value Ref Range Status 05/19/2022 245 145 - 357 x10(3)/mcL Final Operative Procedures: Procedure(s): @THORACOTOMY,DECORTICATION, PULMONARY, TOTAL (WRVU 26.65) BRONCHOSCOPY, DIAGNOSTIC (WRVU 2.53) MODIFIER RIB RESECTION @MAJOR RECONSTRUCTION, CHEST WALL (WRVU 22.51) APS Opioid Administration Hx All administrations since 05/18/2022 are shown below each listed medication. Other Order Route Rate Dose Action Date HYDROmorphone (pf) (10 mcg/mL), BUpivacaine (pf) 0.1% in sodium chloride 0.9% 250 mL epidural Epidural 250 mL New Bag 05/19/2022 Epidural 6 mL/hr New Bag 05/18/2022 HYDROmorphone (pf) (10 mcg/mL), BUpivacaine (pf) 0.1% in sodium chloride 0.9% 250 mL epidural Epidural New Bag 05/18/2022 HYDROmorphone (Dilaudid) (2 mg/mL) injection solution 0.2 mg Epidural 0.2 mg Given 05/18/2022 fentaNYL (PF) (50 mcg/mL) injection 12.5-50 mcg Intravenous 50 mcg Given 05/18/2022 Intravenous 50 mcg Given 05/18/2022 APMS EPIDURAL ROUNDING: Average Numeric Rating Pain Score (0-10): 2 Post-Op Day: 1 Epidural Day: 2 Epidural Infusion (solution): HYDROmorphone 10 mcg/mL and BUpivacaine 0.1% Epidural Infusion Rate: 6 mL per hour PCEA Dose: 3 mL every 20 minutes PRN Out of Bed: No Ambulation: No Able to Use Incentive Spirometry: Yes Escalation of Care: No Tolerating Regular Diet: No Ileus: No Patient had an uneventful night. Epidural catheter insertion site is without signs of infection. Wewill continue current settings. * Morales Armas MD - 05/19/2022 8:15 AM EST [facility] Department of Thoracic Surgery Inpatient Progress Note Patient Name: Rajan Marquez Patient : 1950 Patient Patient Location: [address] [place] [address] Attending Surgeon: GILMER FOSTER ID: Rajan Marquez is a 71 y.o. male who is 1 Day Post-Op s/p open left thoracotomy and total decortication. 24hrs/Subjective: Pain is well-controlled with epidural, reports that his breathing is improved compared to pre-op. - UOP adequate overnight 30-50cc/kg/hr, WBC count and hgb stable - high chest tube output as expected following extensive decortication Vitals: Temp: [36.4 ??C (97.5 ??F)-36.8 ??C (98.2 ??F)] Heart Rate: [104-106] Resp: [13-21] BP: (88-107)/(64-76) SpO2: [94 %-100 %] Heart Rate from SpO2: [87 bpm-110 bpm] Wt & BMI By Encounter Date Flowsheet Row Admission (Current) from 05/18/2022 in Surgical Unit Level 3 Wing D at [facility] Office Visit from 04/30/2022 in Thoracic Surgery [place] [facility] Weight 71.5 kg (157 lb 11.2 oz) 1 05/18/2022 0707 72.1 kg (158 lb 15.2 oz) 1 04/30/2022 1533 BMI 23.98 1 05/18/2022 0707 23.98 1 04/30/2022 1533 Physical Exam: Gen: NAD, pleasant, laying in bed HEENT: normocephalic, atraumatic, EOMI, sclerae anicteric Card: RRR, gallop Pulm: no audible wheeze, non-labored breathing on 2L NC, L CT to -20 with 1 column near-continuous/intermittent airleak appreciated, incision dressing c/d/i Abd: soft, NT, BS+ : matt draining CYU Ext: warm, dry, no edema Neuro: A&Ox3, CN II-XII grossly intact, nonfocal, conversant I/O: I/O last 3 completed shifts: In: 4700.6 [P.O.:200; I.V.:4361; Other:39.6; IV Piggyback:100] Out: 2185 [Urine:1015; Other:570; Blood:600] Labs: Recent Results (from the past 72 hour(s)) POCT Glucose Result Value Ref Range POC Glucose 93 65 - 199 mg/dL EKG 12 Lead Result Value Ref Range Ventricular rate 115 BPM Atrial Rate 115 BPM P-R Interval 176 ms QRS Duration 106 ms Q-T Interval 356 ms QTC Calculated (Bezet) 492 ms Calculated P [place] 106 degrees Calculated R [place] 71 degrees Calculated T [place] -169 degrees INTERPRETATION Sinus tachycardia Incomplete left bundle block Minimal voltage criteria for LVH, may be normal variant ( Yash product ) Nonspecific ST and T wave abnormality Abnormal ECG When compared with ECG of 21-FEB-2022 06:21, Sinus rhythm has replaced Atrial flutter Incomplete left bundle block is now Present BLOOD GAS 2 ARTERIAL Result Value Ref Range pH Art 7.36 7.35 - 7.45 pCO2 Art 42 35 - 45 mmHg pO2 Art 226 (H) 85 - 104 mmHg HCO3 Art 22.9 20.0 - 26.0 mmol/L BE Art -2.6 -3.0 - 3.0 mmol/L Hgb Blood Gas 9.5 (L) 13.7 - 16.5 g/dL O2HB Art 98.5 (H) 94.0 - 97.0 % COHB Art 1.0 % METHB Art 0.3 <=1.5 % Na Whole Blood 133 (L) 135 - 145 mmol/L K Whole Blood 3.8 3.5 - 5.0 mmol/L ICa Whole Blood 1.18 1.15 - 1.33 mmol/L CL Whole Blood 104 98 - 107 mmol/L Gluc Whole Bld 107 65 - 199 mg/dL Lactate WB 1.5 0.5 - 2.2 mmol/L Tissue culture Specimen: Lung Left pleural grumous Result Value Ref Range Tissue Culture No growth to date. Gram Stain Few Neutrophils seen No microorganisms seen. Surgical Pathology Report Result Value Ref Range Surgical Pathology Report [id number] Location: OR; OR11; A The signing pathologist has (i) examined the relevant preparation(s) for the specimen(s) and (ii) rendered or confirmed the diagnosis(es). . Frozen Section FROZEN SECTION DIAGNOSIS CFS - VISCERAL PLEURAL RIND. FROZEN, excision for frozen section Inflamed pleura, no evidence of malignancy (healthcare sales representative sample) 05/18/22 11:27 Electronically signed by: Malia Lacy MD Verified: 05/18/2022 11:29 Pathologist Performed at: [facility] Dept. of Pathology, [place] [address] Healthcare Advisory Services Manager: Maria Ines Marrufo MD, FCLESLY, CLIA Certificate: [id number] This intraoperative consultation should be interpreted as a preliminary diagnosis pending review of the entire specimen and special studies, if any. A final Surgical Pathology report will follow this preliminary Frozen Section report(s). Frozen Section FROZEN SECTION DIAGNOSIS AFS - Left pleural rind, excision for frozen section : Chronic pleuritis and fibrin, negative for malignancy 05/18/22 11:20 Electronically signed by: Malia Lacy MD Verified: 05/18/2022 11:25 Pathologist Performed at: -[facility] [place]. of [place]ology, [place] [address] Healthcare Advisory Services Manager: Maria Ines Marrufo MD, FCAP, CLIA Certificate: [id number] This intraoperative consultation should be interpreted as a preliminary diagnosis pending review of the entire specimen and special studies, if any. A final Surgical Pathology report will follow this preliminary Frozen Section report(s). BLOOD GAS 2 ARTERIAL Result Value Ref Range pH Art 7.34 (L) 7.35 - 7.45 pCO2 Art 42 35 - 45 mmHg pO2 Art 290 (H) 85 - 104 mmHg HCO3 Art 22.2 20.0 - 26.0 mmol/L BE Art -3.5 (L) -3.0 - 3.0 mmol/L Hgb Blood Gas 9.2 (L) 13.7 - 16.5 g/dL O2HB Art 98.5 (H) 94.0 - 97.0 % COHB Art 1.2 % METHB Art 0.3 <=1.5 % Na Whole Blood 133 (L) 135 - 145 mmol/L K Whole Blood 4.2 3.5 - 5.0 mmol/L ICa Whole Blood 1.16 1.15 - 1.33 mmol/L CL Whole Blood 104 98 - 107 mmol/L Gluc Whole Bld 130 65 - 199 mg/dL Lactate WB 1.0 0.5 - 2.2 mmol/L FIO2 Art 50 % Flow Art 1.0 LPM PF Ratio Art 580 ABO/Rh Typing Result Value Ref Range ABORh Type A Pos Antibody screen Result Value Ref Range Ab Screen Interp Negative Expires at 2359 on: 05/21/2022 ABORH Recheck Status Result Value Ref Range ABORH Recheck Order Order Placed ABORH Type Recheck Complete Type and Screen Validity Result Value Ref Range T&S only valid at [facility] Basic Metabolic Panel (non-fasting) Result Value Ref Range Glucose Lvl 117 65 - 199 mg/dL BUN 15 10 - 20 mg/dL Creatinine 0.96 0.80 - 1.50 mg/dL Sodium 138 135 - 145 mmol/L Potassium 4.4 3.5 - 5.0 mmol/L Chloride 106 98 - 107 mmol/L CO2 22 22 - 31 mmol/L Anion Gap 10 5 - 15 mmol/L Calcium 8.3 (L) 8.5 - 10.5 mg/dL Estimated GFR 84 >=60 mL/min/1.73 m?? Hemogram Result Value Ref Range WBC 11.4 (H) 4.0 - 9.5 x10(3)/mcL RBC 3.19 (L) 4.58 - 5.54 x10(6)/mcL Hemoglobin 8.4 (L) 13.7 - 16.5 g/dL Hematocrit 26.5 (L) 40.5 - 48.5 % MCV 83.1 82.9 - 93.1 fL MCH 26.3 (L) 27.5 - 32.1 pg MCHC 31.7 (L) 32.0 - 35.7 g/dL Platelets 289 145 - 357 x10(3)/mcL RDWSD 52.3 (H) 36.0 - 45.0 fL RDWCV 17.2 (H) 11.4 - 13.8 % MPV 8.4 7.6 - 12.9 fL nRBC % Auto 0.0 % nRBC Abs Auto 0.000 0.000 - 0.000 x10(3)/mcL Differential, Automated Result Value Ref Range Neutrophils % 85.2 % Neutr Abs (ANC) 9.74 (H) 1.70 - 6.10 x10(3)/mcL Lymphocytes % 7.3 % Lymphocytes Abs 0.8 (L) 0.9 - 3.2 x10(3)/mcL Monocytes % 6.8 % Monocyte Abs 0.8 0.3 - 0.9 x10(3)/mcL Eosinophils % 0.2 % Eosinophils Abs 0.0 0.0 - 0.4 x10(3)/mcL Basophils % 0.2 % Basophils Abs 0.0 0.0 - 0.1 x10(3)/mcL Immature Gran % 0.30 % Kecia Gran Abs 0.04 0.00 - 0.04 x10(3)/mcL Basic Metabolic Panel (non-fasting) Result Value Ref Range Glucose Lvl 111 65 - 199 mg/dL BUN 13 10 - 20 mg/dL Creatinine 0.93 0.80 - 1.50 mg/dL Sodium 135 135 - 145 mmol/L Potassium 4.8 3.5 - 5.0 mmol/L Chloride 102 98 - 107 mmol/L CO2 24 22 - 31 mmol/L Anion Gap 9 5 - 15 mmol/L Calcium 8.5 8.5 - 10.5 mg/dL Estimated GFR 87 >=60 mL/min/1.73 m?? Hemogram Result Value Ref Range WBC 11.1 (H) 4.0 - 9.5 x10(3)/mcL RBC 3.23 (L) 4.58 - 5.54 x10(6)/mcL Hemoglobin 8.5 (L) 13.7 - 16.5 g/dL Hematocrit 26.8 (L) 40.5 - 48.5 % MCV 83.0 82.9 - 93.1 fL MCH 26.3 (L) 27.5 - 32.1 pg MCHC 31.7 (L) 32.0 - 35.7 g/dL Platelets 245 145 - 357 x10(3)/mcL RDWSD 52.6 (H) 36.0 - 45.0 fL RDWCV 17.3 (H) 11.4 - 13.8 % MPV 8.4 7.6 - 12.9 fL nRBC % Auto 0.0 % nRBC Abs Auto 0.000 0.000 - 0.000 x10(3)/mcL Differential, Automated Result Value Ref Range Neutrophils % 80.9 % Neutr Abs (ANC) 8.95 (H) 1.70 - 6.10 x10(3)/mcL Lymphocytes % 9.3 % Lymphocytes Abs 1.0 0.9 - 3.2 x10(3)/mcL Monocytes % 9.2 % Monocyte Abs 1.0 (H) 0.3 - 0.9 x10(3)/mcL Eosinophils % 0.0 % Eosinophils Abs 0.0 0.0 - 0.4 x10(3)/mcL Basophils % 0.1 % Basophils Abs 0.0 0.0 - 0.1 x10(3)/mcL Immature Gran % 0.50 % Kecia Gran Abs 0.05 (H) 0.00 - 0.04 x10(3)/mcL Diagnostics: XR Chest One View Result Date: 05/18/2022 EXAMINATION: XR CHEST ONE VIEW CLINICAL HISTORY: s/p thoracotomy and total decortication evaluate for lung expansion TECHNIQUE: 1 view of the chest COMPARISON: CT scan of the chest April 16, 2022 FINDINGS: Thickened left pleural reflection. Loculated small to moderate left hydropneumothorax. New left subcutaneous emphysema. Left chest tube in place. Chronic left lung volume loss. Right lung clear. Cardiomediastinal silhouette unchanged. Loculated small to moderate left hydropneumothorax with thickened left pleural reflection and new left subcutaneous emphysema. Thank you for letting us participate in the care of this patient. If youare a health care provider and have any questions regarding this report, please contact the number below. For patients who have questions please contact the health critical care unit manager that requested your imaging first. Electronically signed by: Maryann Magallanes MD, [facility] ([phone]), at 05/18/2022 4:02 PM Assessment: Rajan Marquez is a 71 y.o. male who is 1 Day Post-Op s/p robotic, converted to open left thoracotomy and total decortication. He is currently in stable condition and recovering well postoperatively. Maintain posterior CT strict suction and use a sling when OOB for left arm. Will DC fluids in the afternoon depending on UOP and HR (will also get metop this AM) OOB today x3 with pulmonary toilet. PT consulted. Plan: Neuro: Epidural w/ PCEA. COMMUNITY HEALTH COORDINATOR bupropion Card: HDS, COMMUNITY HEALTH COORDINATOR metoprolol, amiodarone (200mg daily) Pulm: IS/cough/deep breathe/OOB/ambulate. Continue left CT to -20 suction, monitor output. COMMUNITY HEALTH COORDINATOR spiriva, albuterol FENGI: LR @100 ml/hr, Regular diet. RBOs Renal/: Matt in place, monitor UOP Heme: SQH ID: SHELLEY Endo: SHELLEY MSK: COMMUNITY HEALTH COORDINATOR hydroxychloroquine for synovitis PPx: scds; SQH, Ambulate 4x a day. OOB. Dispo: full code, floor status Morales Armas MD 05/19/2022 Thoracic Surgery Service Pager [phone] * Morales Armas MD - 05/18/2022 3:27 PM EST [facility] Department of Thoracic Surgery Inpatient Post Op Check Patient Name: Rajan Marquez Patient : 1950 Patient Patient Location: [address] Attending Surgeon: GILMER FOSTER ID: Rajan Marquez is a 71 y.o. male who is Day of Surgery s/p converted to open left thoracotomy and total decortication. Subjective: No nausea/vomiting, chest pain, SOB, pain well controlled, offers no complaints Vitals: Temp: [36.4 ??C (97.5 ??F)-36.5 ??C (97.7 ??F)] Heart Rate: [105-115] Resp: [17-97] BP: (92-115)/(65-75) SpO2: [96 %-100 %] Heart Rate from SpO2: [105 bpm-107 bpm] Wt & BMI By Encounter Date Flowsheet Row Admission (Current) from 05/18/2022 in PACU at [facility] OfficeVisit from 04/30/2022 in Thoracic Surgery at [facility] Weight 71.5 kg (157 lb 11.2 oz) 1 05/18/2022 0707 72.1 kg (158 lb 15.2 oz) 1 04/30/2022 1533 BMI 23.98 1 05/18/2022 0707 23.98 1 04/30/2022 1533 Physical Exam: Gen: NAD, pleasant, laying in bed HEENT: normocephalic, atraumatic, EOMI, sclerae anicteric Card: RRR on monitor Pulm: no audible wheeze, non-labored breathing on 3L NC, L CT to -20 with 1 column intermittent airleak appreciated, incision dressing c/d/i Abd: soft, NT, BS+ : matt draining CYU Ext: warm, dry, no edema Neuro: A&Ox3, CN II-XII grossly intact, nonfocal, conversant I/O: No intake/output data recorded. Labs: Recent Results (from the past 72 hour(s)) POCT Glucose Result Value Ref Range POC Glucose 93 65 - 199 mg/dL EKG 12 Lead Result Value Ref Range Ventricular rate 115 BPM Atrial Rate 115 BPM P-R Interval 176 ms QRS Duration 106 ms Q-T Interval 356 ms QTC Calculated (Bezet) 492 ms Calculated P [place] 106 degrees Calculated R [place] 71 degrees Calculated T [place] -169 degrees INTERPRETATION Sinus tachycardia Incomplete left bundle block Minimal voltage criteria for LVH, may be normal variant ( Yash product ) Nonspecific ST and T wave abnormality Abnormal ECG When compared with ECG of 21-FEB-2022 06:21, Sinus rhythm has replaced Atrial flutter Incomplete left bundle block is now Present Tissue culture Specimen: Lung Left pleural grumous Result Value Ref Range Gram Stain Few Neutrophils seen No microorganisms seen. Surgical Pathology Report Result Value Ref Range Surgical Pathology Report [id number] Location: OR; OR11; A The signing pathologist has (i) examined the relevant preparation(s) for the specimen(s) and (ii) rendered or confirmed the diagnosis(es). . Frozen Section FROZEN SECTION DIAGNOSIS CFS - VISCERAL PLEURAL RIND. FROZEN, excision for frozen section Inflamed pleura, no evidence of malignancy (healthcare sales representative sample) 05/18/22 11:27 Electronically signed by: Malia Lacy MD Verified: 05/18/2022 11:29 Pathologist Performed at: -[facility] Dept. of Pathology, [place] [id number] Healthcare Advisory Services Manager: Maria Ines Marrufo MD, FCAP, CLIA Certificate: [id number] This intraoperative consultation should be interpreted as a preliminary diagnosis pending review of the entire specimen and special studies, if any. A final Surgical Pathology report will follow this preliminary Frozen Section report(s). Frozen Section FROZEN SECTION DIAGNOSIS AFS - Left pleural rind, excision for frozen section : Chronic pleuritis and fibrin, negative for malignancy 05/18/22 11:20 Electronically signed by: Malia Lacy MD Verified: 05/18/2022 11:25 Pathologist Performed at: -[facility] Dept. of Pathology, [place] [address] Healthcare Advisory Services Manager: Maria Ines Marrufo MD, AP, [place] Certificate: [id number] This intraoperative consultation should be interpreted as a preliminary diagnosis pending review of the entire specimen and special studies, if any. A final Surgical Pathology report will follow this preliminary Frozen Section report(s). ABO/Rh Typing Result Value Ref Range ABORh Type A Pos Antibody screen Result Value Ref Range Ab Screen Interp Negative Expires at 2359 on: 05/21/2022 ABORH Recheck Status Result Value Ref Range ABORH Recheck Order Order Placed ABORH Type Recheck Complete Type and Screen Validity Result Value Ref Range T&S only valid at [facility] H[facility] Basic Metabolic Panel (non-fasting) Result Value Ref Range Glucose Lvl 117 65 - 199 mg/dL BUN 15 10 - 20 mg/dL Creatinine 0.96 0.80 - 1.50 mg/dL Sodium 138 135 - 145 mmol/L Potassium 4.4 3.5 - 5.0 mmol/L Chloride 106 98 - 107 mmol/L CO2 22 22 - 31 mmol/L Anion Gap 10 5 - 15 mmol/L Calcium 8.3 (L) 8.5 - 10.5 mg/dL Estimated GFR 84 >=60 mL/min/1.73 m?? Hemogram Result Value Ref Range WBC 11.4 (H) 4.0 - 9.5 x10(3)/mcL RBC 3.19 (L) 4.58 - 5.54 x10(6)/mcL Hemoglobin 8.4 (L) 13.7 - 16.5 g/dL Hematocrit 26.5 (L) 40.5 - 48.5 % MCV 83.1 82.9 - 93.1 fL MCH 26.3 (L) 27.5 - 32.1 pg MCHC 31.7 (L) 32.0 - 35.7 g/dL Platelets 289 145 - 357 x10(3)/mcL RDWSD 52.3 (H) 36.0 - 45.0 fL RDWCV 17.2 (H) 11.4 - 13.8 % MPV 8.4 7.6 - 12.9 fL nRBC % Auto 0.0 % nRBC Abs Auto 0.000 0.000 - 0.000 x10(3)/mcL Differential, Automated Result Value Ref Range Neutrophils % 85.2 % Neutr Abs (ANC) 9.74 (H) 1.70 - 6.10 x10(3)/mcL Lymphocytes % 7.3 % Lymphocytes Abs 0.8 (L) 0.9 - 3.2 x10(3)/mcL Monocytes % 6.8 % Monocyte Abs 0.8 0.3 - 0.9 x10(3)/mcL Eosinophils % 0.2 % Eosinophils Abs 0.0 0.0 - 0.4 x10(3)/mcL Basophils % 0.2 % Basophils Abs 0.0 0.0 - 0.1 x10(3)/mcL Immature Gran % 0.30 % Kecia Gran Abs 0.04 0.00 - 0.04 x10(3)/mcL Diagnostics: XR Chest One View Result Date: 05/18/2022 EXAMINATION: XR CHEST ONE VIEW CLINICAL HISTORY: s/p thoracotomy and total decortication evaluate for lung expansion TECHNIQUE: 1 view of the chest COMPARISON: CT scan of the chest April 16, 2022 FINDINGS: Thickened left pleural reflection. Loculated small to moderate left hydropneumothorax. New left subcutaneous emphysema. Left chest tube in place. Chronic left lung volume loss. Right lung clear. Cardiomediastinal silhouette unchanged. Loculated small to moderate left hydropneumothorax with thickened left pleural reflection and new left subcutaneous emphysema. Thank you for letting us participate in the care of this patient. If youare a health care provider and have any questions regarding this report, please contact the number below. For patients who have questions please contact the health critical care unit manager that requested your imaging first. Electronically signed by: Maryann Magallanes MD, [facility] ([phone]), at 05/18/2022 4:02 PM Assessment: Rajan Marquez is a 71 y.o. male who is Day of Surgery s/p robotic, converted to open left thoracotomy and total decortication. He is currently in stable condition and recovering well postoperatively.Post op CXR and labs reviewed. Maintain posterior CT strict suction and use a sling when OOB for left arm Plan: Neuro: Epidural w/ PCEA. COMMUNITY HEALTH COORDINATOR bupropion Card: HDS, COMMUNITY HEALTH COORDINATOR metoprolol, amiodarone (200mg daily) Pulm: IS/cough/deep breathe/OOB/ambulate. Continue left CT to -20 suction, monitor output. COMMUNITY HEALTH COORDINATOR spiriva, albuterol FENGI: LR @100 ml/hr, Regular diet. RBOs Renal/: Matt in place, monitor UOP Heme: SQH ID: SHELLEY Endo: SHELLEY MSK: COMMUNITY HEALTH COORDINATOR hydroxychloroquine for synovitis PPx: scds; SQH, Ambulate 4x a day. OOB. Dispo: full code, floor status Vauhgn Davis MD 05/18/2022 Thoracic Surgery Service Pager [phone] * Missy Abdi RN - 05/18/2022 2:31 PM EST Arrived without call out Looked up pnt Came with epidural catheter Gtt not hooked up [address] lai from anesthesia Would like to start Epidural At least at a low level Report from Thoracic Team Strict suction to chest tube 1435 Epidural GTT only started at 3cc Seen also by APS RN Will check in later 1535 Called for CXR 1600 [place] removed Phase II met Feels better After second bolus Seen by Dr Sampson from anesthesia Epidural put to regular settings in light of stable bp and rib removal 1900 comfortable Waiting in line of six rooms that are all dirty 1999 neb tx given Having coffee 2039 report to Mena rm 326 is cleaning When room ready, RN from PACU to travel with documented in this encounter H&P Notes * Linda Mustafa PA - 05/18/2022 7:03 AM EST Patient Name: Rajan Marquez Patient Age: 71 y.o. Birthdate: 1950 Admit date: 05/18/2022 Attending Physician: Gilmer Foster MD Thoracic Surgery Preop NAME: Rajan Marquez DATE: 05/18/22 SURGEON: GILMER FOSTER PROCEDURE: Bronchoscopy, L VATS, robot assisted decortication, possible thoracotomy BRIEF HISTORY: Rajan Marquez is a 71 y.o. male just over 1 year removed from a thoracoscopic left upper lobectomy, with a subsequent pleural effusion and now apparent fibrothorax. He last took his Xarelto (afib) on Saturday05/14/22. He notes new tremors in his b/l UE over the last year for which he has not yet sought out evaluation. There has been no interval medical illness or hospitalizations. Questions have been addressed. Smoking HX: Social History Tobacco Use Smoking Status Former ??? Years: 50.00 ??? Types: Cigarettes Smokeless Tobacco Never Tobacco Comments 1 ppd for the past year PMH: Patient Active Problem List Diagnosis Date Noted ??? Atrial flutter 02/17/2022 ??? Pleural effusion 02/08/2022 ??? Mass of upper lobe of left lung 02/27/2021 ??? ADHD 11/05/2019 ??? COPD (chronic obstructive pulmonary disease) 11/05/2019 ??? Depression 11/05/2019 ??? Lupus anticoagulant positive 11/05/2019 ??? Palpitations 11/05/2019 ??? Tobacco abuse 11/05/2019 ??? Unspecified osteoarthritis, unspecified site 11/05/2019 PSH: Past Surgical History: Procedure Laterality Date ??? APPENDECTOMY ??? IR THORACENTESIS LEFT 11/08/2021 IR Thoracentesis Left 11/08/2021 Ramírez Ramirez MD [facility] INTERVENTIONL RAD ??? PRO BRONCHOSCOPY, DIAGNOSTIC N/A 03/29/2021 BRONCHOSCOPY, DIAGNOSTIC (WRVU 2.78) performed by Gilmer Foster MD at [facility] MAIN OR ??? PRO BRONCHOSCOPY, DIAGNOSTIC N/A 02/08/2022 BRONCHOSCOPY, DIAGNOSTIC (WRVU 2.78) performed by Gilmer Foster MD at [facility] MAIN OR ? ? PRO INJECTION ANES AGENT &/ STEROID INTERCOSTAL NERVE SINGLE LEVEL Left 03/29/2021 NERVE BLOCK, INTERCOSTAL NERVE (WRVU 1.18) performed by Glimer Foster MD at [facility] MAIN OR ??? PRO THORACOSCOPY SURG LOBECTOMY Left 03/29/2021 @THORACOSCOPY,SURGICAL,W\LOBECTOMY,TOTAL OR SEGMENTAL (WRVU 24.64) performed by Johana Foster MD at [facility] MAIN OR ??? PRO THORACOSCOPY WITH BIOPSY OF PLEURA Left 02/08/2022 THORACOSCOPY; WITH BIOPSY(IES) OF PLEURA (WRVU 4.58) [facility]?? PRO THORACOSCOPY WITH MEDIASTINAL AND REGIONAL LYMPHADENECTOMY 03/29/2021 @THORACOSCOPY, SURG; W/MEDIASTINAL& REGIONAL LYMPHADENECTOMY (WRVU 4.12) performed by Gilmer Foster MD at [facility] MAIN OR ??? PRO THORACOSCOPY WITH WEDGE RESECTION AND ANATOMIC LUNG RESECTN Left 03/29/2021 @THORACOSCOPY, SURG; W/DX WEDGE RESC W/ANATOMIC LUNG RESC (WRVU 3) performed by Johana Foster MD at [facility] MAIN OR MEDS: No current facility-administered medications on file prior to encounter. Current Outpatient Medications on File Prior to Encounter Medication Sig Dispense Refill ??? AMIOdarone (Paceron) 200 mg Tablet Take 1 tablet by mouth daily. 30 tablet 11 ??? Spiriva Respimat 2.5 mcg/actuation Mist ??? acetaminophen (Tylenol) 500 mg Tablet Take 2 tablets by mouth every 6 hours. 30 tablet 1 ??? rivaroxaban (Xarelto) 20 mg Tablet Take 20 mg by mouth daily. ??? metoprolol succinate XL (Toprol-XL) 25 mg Tablet Sustained Release 24 hr Take 25 mg by mouth daily. ??? bupropion HCl (WELLBUTRIN ORAL) Take 150 mg by mouth daily. ??? tamsulosin (Flomax) 0.4 mg Capsule Take 0.4 mg by mouth daily. ??? hydrOXYchloroQUINE (Plaquenil) 200 mg Tablet Take 200 mg by mouth Daily. ??? cholecalciferol, Vitamin D3, (Vitamin D3) 1,000 unit Tablet Take 1 tablet by mouth daily. ??? sildenafiL (VIAGRA) 50 mg Tablet TAKE 1/2 TO 1 TABLET BY MOUTH 30 MINUTES PRIOR TO SEXUAL ACTIVITY NEEDED. MAXIMUM DAILY DOSE 2 ??? UNABLE TO FIND Cbd gummies to help with smoking cessation. ??? albuterol sulfate (Proair Digihaler) 90 mcg/actuation aero powdr breath act w/sensor 4 times daily as needed. ALL: Allergies Allergen Reactions ??? Cat Dander Runny eyes and nose ??? Dog Dander Runny eyes and nose Physical Exam Patient Vitals for the past 24 hrs: Temp Pulse Resp BP SpO2 O2 Device 05/18/22 0707 36.5 ??C (97.7 ??F) (Abnormal) 115 (Abnormal) 97 115/75 96 % RA Gen: NAD, pleasant, sitting up in bed HEENT: normocephalic, atraumatic, EOMI, sclerae anicteric. Anisocoria noted (R pupil> L) Neck: supple, trachea midline Card: tachy rate, irregularly irregular rhythm, no M/R/G appreciated Pulm: decreased left base, right base coarse with wheeze that peterson not fully clear with cough, non-labored breathing on RA Abd: soft, NT Ext: warm, dry, no edema- b/l UE tremor Neuro: A&Ox3, CN II-XII grossly intact, nonfocal, conversant LABS: Lab Results Component Value Date WBC 7.8 04/16/2022 RBC 4.54 (L) 04/16/2022 HGB 11.5 (L) 04/16/2022 HCT 36.9 (L) 04/16/2022 MCV 81.3 (L) 04/16/2022 MCH 25.3 (L) 04/16/2022 MCHC 31.2 (L) 04/16/2022 PLATELET 364 (H) 04/16/2022 RDWCV 16.6 (H) 04/16/2022 Lab Results Component Value Date/Time NA 135 04/16/2022 02:10 PM K 4.8 04/16/2022 02:10 PM CL 97 (L) 04/16/2022 02:10 PM CO2 25 04/16/2022 02:10 PM BUN 19 04/16/2022 02:10 PM CREATININE 1.20 04/16/2022 02:10 PM FILM ON PACS: CT chest CONSENT: Yes/EMR - Yes Assessment/Plan: Rajan Marquez is a 71 y.o. male presenting today for planned bronchoscopy, L VATS robotic decortication, likely thoracotomy due to fibrothorax in the setting of prior LULobecotmy with subsequent pleural effusion. Consent signed and confirmed in chart. Questions addressed. Will proce ed with planned surgery. STEVE Sethi 05/18/2022 Thoracic Surgery Service Pager [phone] documented in this encounter Miscellaneous Notes * Care Management Discharge - Kenia Sepulveda RN - 05/24/2022 1:13 PM EDT CARE MANAGEMENT FINAL DISCHARGE NOTE Chart reviewed, care reviewed with primary team and at interdisciplinary rounds. Patient is medically ready for discharge to home w/o services, no needs. Needs for Transition of Care: Plan for discharge is: Home w/o Services Outpatient Agency/Support Group Needs: None Transportation: family or friend will provide Functional status prior to admission: Assistive Equipment Home Environment: Others in the home: significant other, pet(s) (3 small dogs (pugs), 2 cats). Current Living Arrangements: home/apartment/condo. Accessibility Concerns:single story house w/ramp. Current Functional Ability: Independent DME used at home: cane - straight DME Needed at Discharge: none Patient is insured through: Primary Insurance: [facility] MANA[employer]ED MEDICARE Payor: [facility] [employer]IC[employer] / Plan: [facility] MA[employer]ED [employer]IC[facility] COMPLETE / Product Type: *No Producttype* / Secondary Insurance: N/A Prescription Coverage: Yes This plan was formulated with input from patient and team. All are in agreement with plan. Kenia Sepulveda RN-BSN-CM Pager: [phone] * Plan of Care - Raquel Hoffmann - 05/24/2022 7:37 AM EDT OUTCOME EVALUATION NOTE: OUTCOME SUMMARY: Pt A&O x 4, VSS on RA w/ intermittent tachycardia. Last BM was on 05/21/2022. Pt has matt in place. Chest tube water sealed; dressing clean, dry, and intact; dressing changed. Pt's pain controlled with scheduled and PRN pain medication. Epidural continuous; dressing is clean, dry, and intact. Pt cooperative with care and resting between care. Went to x-ray this morning. No adverse events thisshift. Will continue to monitor and help patient reach d/c goals. PLAN MOVING FORWARD: Epidural Chest tube Matt Pain control Mobilize D/c planning INDIVIDUALIZED FALL PREVENTION: Patient is currently a high risk to Fall. Patient educated on bed/chair alarm, demonstrates proper use of call and verbalizes understanding of fall preventions implemented. Patient-specific fall risk factors per assessment: [current deficits]: Chest tube, Matt, IV Sites,Pain, Medications, Hospital Environment. Assistance [level of assistance required for transfers and ambulation]: 1 assist w/ FWW Supervision [direct monitoring required during toileting and ADLs]: Eyes on per unit protocol when OOB/with ADL's Surveillance [continuous indirect monitoring]: Bed Alarm, Masimo, Purposeful Rounding, Nurse Knowledge Exchange Raquel Hoffmann * Plan of Care - Maribell Farias RN - 05/23/2022 6:56 PM EDT OUTCOME EVALUATION NOTE: OUTCOME SUMMARY: Patient's pain controlled with scheduled pain medication and epidural. Patient cooperative with care and resting between care. No adverse events this shift. VS WDL. Patient worked with PT and OT, walked the unit and up to the chair for most of the day. Chest tube atrium exchanged. Chest tube transitioned to water seal. Repeat CXR tomorrow. PLAN MOVING FORWARD: Pain control Mobilize D/c planning INDIVIDUALIZED FALL PREVENTION: Patient is currently a high risk to Fall. Patient educated on bed/chair alarm, demonstrates proper use of call and verbalizes understanding of fall preventions implemented. Patient-specific fall risk factors per assessment: [current deficits]: Pain, Medications, Hospital Environment. Assistance [level of assistance required for transfers and ambulation]: SBA w/ FWW, assistance withdevices. Supervision [direct monitoring required during toileting and ADLs]: Eyes on per unit protocol when OOB/with ADL's, purposeful rounding Surveillance [continuous indirect monitoring]: Masimo * Plan of Care - Sandro Newton RN - 05/23/2022 7:33 AM EDT OUTCOME EVALUATION NOTE: OUTCOME SUMMARY: Pt A&O x 4, VSS on RA, intermittent Tachycardia. Pt matt draining CYU. Pt chest tube draining serosanguinous drainage. Pt's pain controlled with scheduled and PRN pain medication. Pt cooperativewith care and resting between care. No adverse events this shift. Will continue to monitor and helppatient reach d/c goals. PLAN MOVING FORWARD: Epidural Chest xray in AM Chest tube to water seal Amtt care Pain control Mobilize D/c planning INDIVIDUALIZED FALL PREVENTION: Patient is currently a high risk to Fall. Patient educated on bed/chair alarm, demonstrates proper use of call and verbalizes understanding of fall preventions implemented. Patient-specific fall risk factors per assessment: [current deficits]: Chest tube, IV Sites, Pain, Medications, Hospital Environment. Assistance [level of assistance required for transfers and ambulation]: SBA w/ FWW Supervision [direct monitoring required during toileting and ADLs]: Eyes on per unit protocol when OOB/with ADL's Surveillance [continuous indirect monitoring]: Bed Alarm, Masimo, Purposeful Rounding, Nurse Knowledge Exchange Sandro Newton RN * Plan of Care - Maribell Farias RN - 05/22/2022 5:46 PM EDT OUTCOME EVALUATION NOTE: OUTCOME SUMMARY: Patient's pain controlled with scheduled medications and epidural. Patient slept into the afternoon, patient walked to the elevators then back to bed. Patient did not want to get in the chair today. Patient nauseous and had emesis x1, zofran and compazine given with most relief from compazine. Patient cooperative with care and resting between care. No adverse events this shift. VS WDL except intermittent tachycardia when moving around. Plan to DC chest tube and epidural tomorrow. PLAN MOVING FORWARD: Pain control Mobilize D/c planning INDIVIDUALIZED FALL PREVENTION: Patient is currently a high risk to Fall. Patient educated on bed/chair alarm, demonstrates proper use of call and verbalizes understanding of fall preventions implemented. Patient-specific fall risk factors per assessment: [current deficits]: Pain, Medications, Hospital Environment. Assistance [level of assistance required for transfers and ambulation]: SBA w/ FWW, assistance for drain/devices. Supervision [direct monitoring required during toileting and ADLs]: Eyes on per unit protocol when OOB/with ADL's, purposeful rounding Surveillance [continuous indirect monitoring]: Marlys * Plan of Care - Maribell Farias RN - 05/21/2022 5:54 PM EDT OUTCOME EVALUATION NOTE: OUTCOME SUMMARY: Patient's pain controlled with scheduled and PRN pain medication. Patient cooperative with care andresting between care. No adverse events this shift. VS WDL. Patient up to the chair, walked the unit with PT. Had a large BM. PLAN MOVING FORWARD: Pain control Mobilize D/c planning INDIVIDUALIZED FALL PREVENTION: Patient is currently a high risk to Fall. Patient educated on bed/chair alarm, demonstrates proper use of call and verbalizes understanding of fall preventions implemented. Patient-specific fall risk factors per assessment: [current deficits]: Pain, Medications, Hospital Environment. Assistance [level of assistance required for transfers and ambulation]: X1 w/ FWW Supervision [direct monitoring required during toileting and ADLs]: Eyes on per unit protocol when OOB/with ADL's, purposeful rounding Surveillance [continuous indirect monitoring]: Marlys * Initial Assessments - Kenia Sepulveda RN - 05/21/2022 1:46 PM EDT Office of Care Management Initial Assessment Kenia A Taylor, RN reviewed record and discussed patient with Care Team. Source of Information: Team, bedside nurse, medical record, and Patient Introduced self/reviewed role; services accepted. Reason for Hospitalization: left thoracotomy and total decortication Covid Vaccination Status: 1st, 2nd & booster Last COVID test: Lab Results Component Value Date COVID19 Not Detected 03/26/2021 Past medical History: Past Medical History: Diagnosis Date ??? BPH (benign prostatic hyperplasia) ??? COPD (chronic obstructive pulmonary disease) ??? Coronary artery disease ??? GERD (gastroesophageal reflux disease) ??? Hypertension ??? Synovitis Hospitalizations Within the Past 30 Days: no previous admission in last 30 days Current Decision-Making Capacity: Self If AD's have not been completed the following surrogate would be surrogate decision maker per [place] decision making law. (Only good for 180 days) Any patient receiving care in [place] must abide by [place] law. The hierarchy for surrogate decision making is: (a) Patient???s spouse, or civil union partner or common law spouse unless there is a divorce proceeding, separation agreement, or restraining order limiting that person???s relationship with the patient. (b) Any adult son or daughter of the patient. (c) Either parent of the patient. (d) Any adult brother or sister of the patient. (e) Any adult grandchild of the patient. (f) Any grandparent of the patient. (g) Any adult aunt, uncle, niece, or nephew of the patient. (h) A close friend of the patient. (i) The agent with financial power of leasing coordinator or a conservator appointed in accordance with RSA 464-A. (j) The guardian of the patient???s estate. Advance Care Planning: Attempt Cardiopulmonary Resuscitation - Inpatient <no information> -Advanced Directive: No, declines Current Coping/Education/Information Needs: denies needs at this time Current Functional Ability: Assistive Equipment and Assistive Person Functional Status Prior to Admission: Assistive Equipment Prior ADLs & IADLs: Independent with all ADLs & IADLs Home Environment: Others in the home: significant other, pet(s) (3 small dogs (pugs), 2 cats). Current Living Arrangements: home/apartment/condo. Accessibility Concerns:single story house w/ramp. Resource / Environmental Concerns: Resource/Environmental Concerns: none Current DME: cane - straight Home Address confirmed as: [address] [facility] [address] Social & Family Supports: All names listed below confirmed with patient as current and correct Extended Emergency Contact Information Primary Emergency Contact: DAVIN PRADO Mobile Relation: Significant Other Current Care Provided by: self Provides Primary Care For: pet(s) Caregiver if needed: significant other Quality of Family relationships: helpful, involved, supportive Community Resources being provided currently: none Behavioral Health History: none Substance Use/Abuse listed: Social History Tobacco Use Smoking Status Former ??? Years: 50.00 ??? Types: Cigarettes Smokeless Tobacco Never Tobacco Comments 1 ppd for the past year 0 No problems reported 1-2 Low level 3-5 Moderate level 6-8 Substantial level 9- 10 Severe level 0 to 7 points: Low risk 8 to 15 points: Medium risk 16 to 19 points: High risk 20 to 40 points: Addiction likely Other Pertinent/Service Specific Information: none Health/Prescription Coverage: Primary Insurance: [email or web address] MEDICARE Payor: [email or web address] MEDICARE / Plan: [facility] MANAGED MEDICARE COMPLETE / Product Type: *No Producttype* / Secondary Insurance: N/A ; Prescription Coverage: Yes Preferred Pharmacy: [email or web address] [address] Status: Patient is a : No Primary Care Provider confirmed: Tami Olivia [phone] Patient/Caregiver Goals of Treatment: discharge home Potential Needs for Transition of Care: home health care Agency Referrals: I have met with the patient to: ?? discuss discharge planning needs. ?? provide the [facility], Office of Care Management letter from the Healthcare Advisory Services Manager pertaining to rehabreferrals. ?? provide a letter describing our affiliations within the [facility] and educate about their right to choose where referrals are sent. ?? provide a list of Home Health Agencies / Durable Medical Equipment vendors which serve their preferred geographic area. ?? provided patient with [facility] Star Quality Rating handout. They have requested referrals to: [facility] [employer]. [address] [place] [address] Note routed to a Bumper Straightener who will communicate referrals to facilities and provide any required information. Transportation: no concerns Transportation Anticipated: family or friend will provide Concerns to be Addressed: denies needs/concerns at this time Assessment: Patient is admitted to Thoracic service for left thoracotomy and total decortication Plan: continuing CT to [facility]WS r/t air leak and epidural w/Matt. Currently anticipated to d/c Saturday,possibly needing VNA for mini atrium. A member of the Care Management team will continue to monitor progress, follow for continuity of care and assist with transition of care planning. Kenia Sepulveda RN-BSN-CM Pager: [phone] * Initial Assessments - Messi Dooley, OT - 05/21/2022 9:35 AM EDT Occupational Therapy Evaluation Patient profile: Rajan Marquez is a 71 y.o. 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 Past Medical History: Diagnosis Date ??? BPH (benign prostatic hyperplasia) ??? COPD (chronic obstructive pulmonary disease) ??? Coronary artery disease ??? GERD (gastroesophageal reflux disease) ??? Hypertension ??? Synovitis Past Surgical History: Procedure Laterality Date ??? APPENDECTOMY ??? IR THORACENTESIS LEFT 11/08/2021 IR Thoracentesis Left 11/08/2021 Ramírez Ramirez MD [facility] INTERVENTIONL RAD ??? PRO BRONCHOSCOPY, DIAGNOSTIC N/A 03/29/2021 BRONCHOSCOPY, DIAGNOSTIC (WRVU 2.78) performed by Gilmer Foster MD at [facility] MAIN OR ??? PRO BRONCHOSCOPY, DIAGNOSTIC N/A 02/08/2022 BRONCHOSCOPY, DIAGNOSTIC (WRVU 2.78) performed by Gilmer Foster MD at [facility] MAIN OR ??? PRO BRONCHOSCOPY, DIAGNOSTIC N/A 05/18/2022 BRONCHOSCOPY, DIAGNOSTIC (WRVU 2.53) performed by Gilmer Foster MD at [facility] MAIN OR ??? PRO DECORTICATION, PULMONARY, TOTAL Left 05/18/2022 @THORACOTOMY,DECORTICATION, PULMONARY, TOTAL (WRVU 26.65) performed by Gilmer Foster MD [facility] MAIN OR ? ? PRO INJECTION ANES AGENT &/ STEROID INTERCOSTAL NERVE SINGLE LEVEL Left 03/29/2021 NERVE BLOCK, INTERCOSTAL NERVE (WRVU 1.18) performed by Gilmer Foster MD at [facility] MAIN OR ??? PRO RECONSTRUCT INJURED CHEST Left 05/18/2022 @MAJOR RECONSTRUCTION, CHEST WALL (WRVU 22.51) performed by Gilmer Foster MD at [facility] MAIN OR ??? PRO THORACOSCOPY SURG LOBECTOMY Left 03/29/2021 @THORACOSCOPY,SURGICAL,W\LOBECTOMY,TOTAL OR SEGMENTAL (WRVU 24.64) performed by Johana Foster MD at [facility] MAIN OR ??? PRO THORACOSCOPY WITH BIOPSY OF PLEURA Left 02/08/2022 THORACOSCOPY; WITH BIOPSY(IES) OF PLEURA (WRVU 4.58) [facility]?? PRO THORACOSCOPY WITH MEDIASTINAL AND REGIONAL LYMPHADENECTOMY 03/29/2021 @THORACOSCOPY, SURG; W/MEDIASTINAL& REGIONAL LYMPHADENECTOMY (WRVU 4.12) performed by Gilmer Foster MD at [facility] MAIN OR ??? PRO THORACOSCOPY WITH WEDGE RESECTION AND ANATOMIC LUNG RESECTN Left 03/29/2021 @THORACOSCOPY, SURG; W/DX WEDGE RESC W/ANATOMIC LUNG RESC (WRVU 3) performed by Johana Foster MD at [facility] MAIN OR Social History: Patient lives with significant other, 3 rambunctious pugs and 2 cats Home Setup: Single lvl home, ramp to enter, walk in shower DME: Shower chair, hand held shower, cane, rollator Baseline ADL/Mobility: Mod I w cane, Independent w ADLs. IADLs done by significant other (pt reports she drives, shops, cooks and cleans the house Precautions/Special Considerations: Full code, fall risk, chest tube with suction, epidural cath, urethral cath, bilateral hard of hearing Subjective: My significant other is home all the time and takes care of everything in the house. Objective: Seen today for OT evaluation. Cognitive Status/Behavior: ?? Behavior / Mood: alert and cooperative ?? Alert and oriented to: person, place, time and situation ?? Follows commands: multi step ?? Attention: WFL ?? Safety awareness: decreased insight into deficits Vision & Perception: ?? WNL / WFL Communication: WFL B [place] (pt reports hearing aids are no longer working) Range of motion, strength, coordination: Hand dominance: right Bilateral UE: R UE strength 5/5 throughout, L UE 5/5 elbow flx/ext, L UE shoulder flx NA d/t precautions LE limitations: WFL Sensation: Grossly intact Activities of Daily Living: Self-feeding: Independent (pt drink water from cup) Grooming: SUA (pt washed faced and brushed teeth sitting in recliner) Dressing: SBA LB dressing (pt able to don and doff socks sitting EOB) Sling: Total A for donning sling L UE Functional Mobility: Supine to sit: NA Sit to stand: SBA X w cane Ambulation: SBA w cane (pt ambulated to recliner ~6ft from bedside, no LOB noted) Stand to sit: SBA X2 w cane Sit to supine: NA Balance: Sitting balance: Good + Standing balance: Good - Vitals: VSS on RA HR in low 120s throughout asymptomatic Pain: Pt reports discomfort when moving, no numerical value given Skin: R UE IV, Epidural catheter thoracic, incision L chest, incision L lateral abdomen Education: patient have been educated on Role of occupational therapy/rehabilitation, Transfers, ADL, Positioning, Safety, Functional Mobility, Recommendations and Discharge planning and verbalize and demonstrate understanding. Patient status, treatment, and mobility recommendations discussed with nursing. Assessment: Pt has been seen for occupational therapy evaluation. Rajan Marquez presents with the following performance skill deficits and client factors: increased pain, decreased activity tolerance, decreased sitting / standing balance and deconditioning. These performance deficits have led to activity limitations and participation restrictions in the following areas of occupation: dressing, transfers / mobility and leisure. Pt would benefit from further inpatient OT interventions to address performance deficits and maximize participation and independence with occupations of daily living. Equipment needs at discharge: to be determined Anticipated Discharge Dispostion: home with supervision Other Recommendations: ?? Transfer to recliner chair as appropriate with cane X2 (1 close supervision, 1 for line management) ?? Encourage participation in ADL's by providing set up A on tray table ?? Ambulate around unit with cane X2 for line management Other Recommendations: No other consults recommended at this time. Goals: To be achieved by 06/04/22. Pt will be Mod I with toileting routine w LRAD Pt will be Independent with sling management Pt will recall and utilize compensatory breathing strategies PRN when engaged in functional tasks Pt will recall 3/3 energy conservation strategies (plan, pace, prioritize) Pt will participate in 2 grooming tasks while standing at sink Plan: OT: Therapy Frequency (OT): 1-3 more times Planned OT interventions: Adaptive equipment training, ADL, Exercise, Breathing exercises, Functional Mobility, Activity pacing/Energy conservation, Balance, Recommendations and Discharge planning. Total Minutes, Occupational Therapy: 40 (Eval (2537-2033)) 2017 OT Evaluation Code Rationale: ?? Diagnosis & Pertinent Co-Morbidities affecting Plan of Care: see PMHx ?? Occupational Profile & Client History: Brief Expanded Extensive X ?? Assessment of Occupational Performance: 1-3 performance deficits 3-5 performance deficits X 5 + performance deficits ?? Clinical Decision Making: Low Moderate High X Clinical decision making of moderate complexity using standardized patient assessment instrument and measurable assessment of functional outcome. Pager: [phone] Messi Dooley OT 05/21/2022 Occupational Therapy Rehabilitation Department * Plan of Care - Maribell Farias RN - 05/20/2022 6:39 PM EDT OUTCOME EVALUATION NOTE: OUTCOME SUMMARY: This morning patient disoriented to time, re-orientation provided, AAOx4 for the rest of the shift.Patient's pain controlled with epidural. Patient cooperative with care and resting between care. Noadverse events this shift. VS WDL. Patient walked the soto once and was a little unsteady towards the end of the walk. Patient refused a walk this afternoon, encouragement provided. Patient C/O nausea most of the day resulting in poor appetite, zofran given. Chest tube has continuous air leak, aware. Leaking at chest tube insertion site, dressing changed x1. Matt in place. PLAN MOVING FORWARD: Pain control Mobilize D/c planning INDIVIDUALIZED FALL PREVENTION: Patient is currently a high risk to Fall. Patient educated on bed/chair alarm, demonstrates proper use of call and verbalizes understanding of fall preventions implemented. Patient-specific fall risk factors per assessment: [current deficits]: Pain, Medications, Hospital Environment. Assistance [level of assistance required for transfers and ambulation]: X1 w/ cane, left arm sling OOB Supervision [direct monitoring required during toileting and ADLs]: Eyes on per unit protocol when OOB/with ADL's, purposeful rounding Surveillance [continuous indirect monitoring]: Masimo * Care Management - Jose Manuel Salinas RN - 05/20/2022 3:37 PM EDT Weekend RN/CM attempted IA today. Pt with Epidural in for pain mgmt. Not feeling well to discuss dc planning. Pending PT/OT to see patient. Service RN/CM to f/u for IA on 05/21/2022. Jose Manuel Salinas RN RN/CM - Cellphone: [phone] Pager: [phone] Covering Service RN/CM * Plan of Care - Mamta Mccullough RN - 05/19/2022 4:19 PM EST OUTCOME EVALUATION NOTE: OUTCOME SUMMARY: VSS BPs soft (250ml Bolus given) on 2L NC-coughing w/ mild PETERSON; denies CP/N/V; pain well managed with epidural -04/20; dressings intact no HEEL SLUGGER known air leak; making adeq urine; tolerating PO; sling bedside; promoted rest PLAN MOVING FORWARD: Monitor Resp status/Wean O2/RA sat checks CT drain care w/ orders for Strict SUCTION Sling to Left arm OOB Remove matt Pain mgmt DC planning INDIVIDUALIZED FALL PREVENTION INTERVENTIONS: High fall risk Patient-specific fall risk factors per assessment: [current deficits]: Dilaudid epidural; Tubing; Weakness Assistance [level of assistance required for transfers and ambulation]: 1 assist Supervision [direct monitoring required during toileting and ADLs]: Eyes on Surveillance [continuous indirect monitoring]: Masimo; hourly rounding; NKE Patient-specific fall prevention interventions for sensory deficits provided, if applicable: [X] No CARE PLAN GOAL OUTCOME EVALUATION: * Plan of Care - Mena Boyle RN - 05/19/2022 2:10 AM EST OUTCOME EVALUATION NOTE: OUTCOME SUMMARY: Pt arrived VSS BPs stable/soft on 2L NC-coughing w/ mild PETERSON; denies CP/N/V; pain well managed with epidural -04/20; dressings intact no HEEL SLUGGER known air leak; making adeq urine; tolerating PO; sling bedside; promoted rest PLAN MOVING FORWARD: Monitor Resp status/Wean O2/RA sat checks CT drain care w/ orders for Strict SUCTION Sling to Left arm OOB Remove matt Pain mgmt DC planning INDIVIDUALIZED FALL PREVENTION INTERVENTIONS: High fall risk Patient-specific fall risk factors per assessment: [current deficits]: Dilaudid epidural; Tubing; Weakness Assistance [level of assistance required for transfers and ambulation]: 1 assist Supervision [direct monitoring required during toileting and ADLs]: Eyes on Surveillance [continuous indirect monitoring]: Masimo; hourly rounding; NKE Patient-specific fall prevention interventions for sensory deficits provided, if applicable: [X] No CARE PLAN GOAL OUTCOME EVALUATION: * Op Note - Gilmer Foster MD - 05/18/2022 3:42 PM EST [facility] Operative Note Patient Name: Rajan Marquez : [id number] MR#: [id number] Case Date: 05/18/2022 Surgeon: Surgeon(s) and Role: * Gilmer Foster MD - Primary * Linda Mustafa PA - Physician Engraver Rubber * Renu Donald PA - Physician Engraver [employer]ber * Morales Armas MD - Resident Preoperative diagnosis: fibrothorax Postoperative diagnosis: fibrothorax Procedure(s) (LRB): @THORACOTOMY,DECORTICATION, PULMONARY, TOTAL (WRVU 26.65) (Left) BRONCHOSCOPY, DIAGNOSTIC (WRVU 2.53) (N/A) MODIFIER RIB RESECTION (Left) @MAJOR RECONSTRUCTION, CHEST WALL (WRVU 22.51) (Left) Findings: Fibrothorax Anesthesia: General Estimated Blood Loss: 600 mL Specimens removed during surgery: Order Name Source Comment Collection Info Order Time SPECIMEN TO PATHOLOGY fibrothorax Fragments of rib excision 05/18/2022 10:19 AM Number of tissue samples (in container) 1 Time specimen removed from patient: 10:18 AM SPECIMEN TO PATHOLOGY fibrothorax Left pleural rind excision YES, Please perform frozen section 05/18/2022 10:36 AM Number of tissue samples (in container) 1 Time specimen removed from patient: 10:35 AM SPECIMEN TO PATHOLOGY fibrothorax Left pleural rind excision 05/18/2022 10:36 AM Number of tissue samples (in container) 1 Time specimen removed from patient: 10:36 AM SPECIMEN TO PATHOLOGY fibrothorax Left pleural grumous excision 05/18/2022 10:37 AM Number of tissue samples (in container) 1 Time specimen removed from patient: 10:36 [place] [address]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 [place] excision YES, Please perform frozen section No 05/18/2022 10:55 AM Number of tissue samples (in container) 1 Time specimen removed from patient: 10:55 AM Biospecimen to store? No PATHOLOGY ORDER UPDATE 05/18/2022 11:20 AM Additional information: Additional Info Enter requested changes: Left PARIETAL pleural rind eD-H Order Id number [id number] SPECIMEN TO PATHOLOGY fibrothorax Left visceral pleural rind excision 05/18/2022 11:21 AM Number of tissue samples (in container) 1 Time specimen removed from patient: 11:20 AM Drains: 28 [place] chest tube, left Surgical Closure: Primary Closure - skin incision is closed but with open spaces for wires, felipa, drains or other devices Disposition: awakened from anesthesia, extubated and taken to the recovery room in a stable condition, having suffered no apparent untoward event. Condition: doing well without problems (Please see the Surgical Encounter Summary for any Implant and Specimen details pertinent to this patient.) HPI/Surgical Indications: 71-year-old man just over 1 year removed from a left upper lobectomy, with a chronic left pleural effusion with evidence of lung trapping and a previous biopsy suggesting a fibrothorax Procedure Description: The patient was brought to the operating room and placed on the table in supine position. General anesthesia was induced and a double- lumen endotracheal tube was placed. The position of the tube was confirmed bronchoscopically, and diagnostic bronchoscopy was performed. On the right, the examined airways were anatomically normal without endobronchial lesions or excessive secretions. On the left, the upper lobe was surgically absent and the bronchial stump was intact. The lower lobe was patent with some evidence of extrinsic compression. I judged that it was safe and appropriate to proceed with the planned operation. The patient was positioned in the right lateral decub itus, left side up position and the chest was prepped and draped in the standard sterile fashion. [facility] confirmed the patient's identity and the nature and laterality of the procedure to be performed. The chest wall was carefully palpated and the intercostal spaces noted to be markedly contracted, and it was only with difficulty that we were able to pass a finder needle in between ribs at about the posterior axillary line. Significant resistance was encountered and no pleural fluid could be aspirated. I judged that because of the tight rib spaces and inability to aspirate pleural fluid or air that a minimally invasive approach would not be possible. Therefore, a left posterior lateral thoracotomy was made. This was accomplished by placing an incision about a fingerbreadth below the tip of the left scapula and carrying it through the latissimus dorsi muscle. Flaps were raised below the latissimus dorsi and the serratus fascia was then incised. A scapular retractor was placed under the scapula and it was elevated. As expected, the intercostal spaces were so tight that the ribs appear to be touching. We counted about the sixth interspace. The electrocautery wasused to incise the intercostal muscle above and below the sixth rib and this was carried down underneath the rib. The pleural space could not readily be entered because of the thick pleural rind. We made the decision to resect a portion of the sixth rib. The rib was cleared of its muscular attachments and divided with the sliding cribbing setter and then excised in pieces with a rongeur. Through this approach we were able to create adequate space to enter the left hemithorax. The parietal pleura wasthickened and leathery, at least a centimeter thick imparts. Pieces of the parietal pleura were sent for histologic analysis and no malignancy was diagnosed. We carried our dissection through the parietal pleura and into a space posterior to the left lung which contained serrato-colored odorless pleural grumous. Pieces of this material was sent for culture and histology. By debriding the disorganizedtissue in this area we were able to identify what appeared to be a space posterior and lateral to the trapped lower lobe of the left lung. The visceral pleura was thickened and serrato-colored, and even with Valsalva is on the left side no movement of the left lung could be visualized. We judged that it would be necessary to resect a second rib to afford access to the left hemithorax, and so the fifth rib was cleared of its muscular attachments and divided with the sliding cribbing setter. This maneuverpermitted a Finochietto rib blade sharpener to be placed. The remainder of the fibrinous debris was irrigated and suctioned free from the pleural space, and the thick leathery visceral pleura was then incised sharply with a #15 blade scalpel. Through this maneuver we were able to come down to lung parenchyma. We then began a meticulous process of peeling the thickened leathery rind off the visceral surface of the lung. This was accomplished through a combination of sharp dissection and cautery dissection, using the aqua mantis device for hemostasis. We worked posteriorly until we were able to come into a gutter between the posterior aspect of the lower lobe of the left lung and the thoracic aorta.We carried this dissection superiorly until we appeared to reach the top of the lower lobe of the lung. Anteriorly, the visceral pleura was fused to the mediastinal pleura and we carefully decorticate d this way. The view inferiorly was poor. Accordingly, a small incision was made at the proposed chest tube site to permit placement of a thoracoscope. Using the thoracoscope for guidance we were able to continue the dissection of fibrinous debris and pleural rind inferiorly down to the diaphragm. Once the visible portions of the lower lobe of the lung had been totally decorticated we determined that no further dissection was appropriate. The remaining thickened portions of the visceral pleura were incised with the cautery and places to permit better expansion of the lung, and with positive pressure the left lower lobe did appear to expand significantly. A 28 [place] chest tube was placed thr ough the camera port and advanced to the apex of the hemithorax and secured. We assessed the defectmade by resection of the fifth and sixth ribs. Because of the concern for scapular trapping, we elected to patch this defect. A piece of [place] patch was selected and was secured to the fourth and seventh ribs using interrupted 0 Ethibond sutures. The serratus anterior fascia was then reapproximated with 0 Vicryl, and the latissimus dorsi muscle reapproximated in 2 layers with 0 Vicryl. The additional soft tissue layers were closed subcutaneously and a dressing was applied. The patient was then allowed to emerge from anesthesia and was extubated in the operating room without incident. He was transported to the recovery area in stable condition. All of the sponge, needle and instrument counts were correct, and as the attending surgeon I was present and scrubbed at the bedside throughout the case. Due to the absence of a qualified general surgery resident for the majority of this case Iwas assisted by STEVE Brand and STEVE Merrill MD * Brief Op Note - Renu Donald PA - 05/18/2022 2:01 PM EST Brief Operative Note Patient Name: Rajan Marquez : [id number] MR#: [id number] Case Date: 05/18/2022 Surgeon: Surgeon(s) and Role: * Gilmer Foster MD - Primary * Linda Mustafa PA - Physician Engraver Rubber * Renu Donald PA - Physician Engraver Rubber * Morales Armas - Resident Preoperative diagnosis: fibrothorax Postoperative diagnosis: fibrothorax Procedure(s) (LRB): @THORACOTOMY,DECORTICATION, PULMONARY, TOTAL (WRVU 26.65) (Left) BRONCHOSCOPY, DIAGNOSTIC (WRVU 2.53) (N/A) MODIFIER RIB RESECTION (Left) @MAJOR RECONSTRUCTION, CHEST WALL (WRVU 22.51) (Left) Anesthesia: General Findings: Diagnostic bronchoscopy with moderate amount of thick secretions and no evidence of mass or lesion. Attempted to place a robotic port, however the patient's rib spaces were too small and restricted to accommodate a trochar, so VATS was not feasible. A left thoracotomy was performed and a portion of two ribs were excised to provide visibility. This revealed a thick parietal pleural rind and a large amount of grumous which was removed. A total decortication was performed. A sample of visceral pleural rind was sent for frozen section which was consistent with fibrous tissue; no evidence of malignancy. The chest was irrigated with saline and a 28 Fr chest tube was placed into the leftposterior pleural space. Hemostasis was achieved. 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 [place] excision YES, Please perform frozen section No 05/18/2022 10:55 AM Number of tissue samples (in container) 1 Time specimen removed from patient: 10:55 AM Biospecimen to store? 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 Condition: doing well without problems (Please see the Surgical Encounter Summary for any Implant and Specimen details pertinent to this patient.) Surgical Infection Prevention Bundle Used? No STEVE Peñaloza 05/18/22 documented in this encounter Plan of Treatment Scheduled Procedures Name Priority Associated Diagnoses Date/Ti me ELECTROPHYSIOLOGY PROCEDURE Persistent atrial fibrillation CARDIOVERSION-ELECTIVE (WRVU 2) persistent atrial fibrillation TRANSESOPHAGEAL ECHOCARDIOGR AM (WRVU 2.3) persistent atrial fibrillation Scheduled Referrals Name Type Priority Associated Diagnoses Orde r Schedule Referral to Pulmonary Rehab Outpatient Referral Routine Status post lung surgery Ordered: 05/24/2022 documented as of this encounter Procedures Procedure Name Priority Date/Time Associated Diagnosis Comments IMPLANTABLE DEVICES SCAN 05/29/2022 2:19 PM EDT XR CHEST PA AND LATERAL Routine 05/24/2022 8:44 AM EDT XR CHEST PA AND LATERAL Routine 05/24/2022 5:35 AM EDT HEMOGRAM Routine 05/24/2022 3:36 AM EDT DIFFERENTIAL, AUTOMATED Routine 05/24/2022 3:36 AM EDT HC CBC,PLT & AUTO DIFF Routine 05/24/2022 3:36 AM EDT BASIC METABOLIC PANEL Routine 05/24/2022 3:36 AM EDT XR CHEST PA AND LATERAL Routine 05/23/2022 7:00 AM EDT HEMOGRAM Routine 05/23/2022 3:52 AM EDT DIFFERENTIAL, AUTOMATED Routine 05/23/2022 3:52 AM EDT HC CBC,PLT & AUTO DIFF Routine 05/23/2022 3:52 AM EDT BASIC METABOLIC PANEL Routine 05/23/2022 3:52 AM EDT HEMOGRAM Routine 05/22/2022 3:47 AM EDT DIFFERENTIAL, AUTOMATED Routine 05/22/2022 3:47 AM EDT HC CBC,PLT & AUTO DIFF Routine 05/22/2022 3:47 AM EDT BASIC METABOLIC PANEL Routine 05/22/2022 3:47 AM EDT EKG 12-LEAD Routine 05/21/2022 7:36 AM EDT Tachycardia HEMOGRAM Routine 05/21/2022 4:09 AM EDT DIFFERENTIAL, AUTOMATED Routine 05/21/2022 4:09 AM EDT HC VENIPUNCTURE Routine 05/21/2022 4:09 AM EDT BASIC METABOLIC PANEL Routine 05/21/2022 4:09 AM EDT HEMOGRAM Routine 05/20/2022 4:08 AM EDT DIFFERENTIAL, AUTOMATED Routine 05/20/2022 4:08 AM EDT HC VENIPUNCTURE Routine 05/20/2022 4:08 AM EDT BASIC METABOLIC PANEL Routine 05/20/2022 4:08 AM EDT XR CHEST PA AND LATERAL Routine 05/19/2022 11:06 AM EST HEMOGRAM Routine 05/19/2022 3:31 AM EST DIFFERENTIAL, AUTOMATED Routine 05/19/2022 3:31 AM EST HC CBC,PLT & AUTO DIFF Routine 05/19/2022 3:31 AM EST BASIC METABOLIC PANEL Routine 05/19/2022 3:31 AM EST XR CHEST ONE VIEW STAT 05/18/2022 4:0 1 PM EST HEMOGRAM STAT 05/18/2022 2:18 PM EST DIFFERENTIAL, AUTOMATED STAT 05/18/2022 2:18 PM EST HC CBC,PLT & AUTO DIFF STAT 05/18/2022 2:18 PM EST BASIC METABOLIC PANEL STAT 05/18/2022 2:18 PM EST TYPE AND SCREEN VALIDITY STAT 05/18/2022 1:37 PM EST ABORH RECHECK STATUS STAT 05/18/2022 1:37 PM EST ABO/RH TYPING STAT 05/18/2022 1:37 PM EST ANTIBODY SCREEN STAT 05/18/2022 1:37 PM EST TYPE AND SCREEN ([facility]/MARY) STAT 05/18/2022 1:37 PM EST @MAJOR RECONSTRUCTION, CHEST WALL Routine 05/18/2022 1:26 PM EST Status post lobectomy of lung BLOOD GAS ARTERIAL POC Routine 05/18/2022 12:41 PM EST THORACOTOMY,DECORTICA TION, PULMONARY, TOTAL Routine 05/18/2022 11:24 AM EST Status post lobectomy of lung BRONCHOSCOPY,DIAGNOST IC Routine 05/18/2022 11:24 AM EST Status post lobectomy of lung SPECIMEN TO PATHOLOGY Routine 05/18/2022 11:21 AM EST SPECIMEN TO PATHOLOGY STAT 05/18/2022 10:56 AM EST SPECIMEN TO PATHOLOGY Routine 05/18/2022 10:37 AM EST SPECIMEN TO PATHOLOGY Routine 05/18/2022 10:36 AM EST SPECIMEN TO PATHOLOGY STAT 05/18/2022 10:36 AM EST ANAEROBIC CULTURE Routine 05/18/2022 10: 35 AM EST HC TISSUE CULTURE Routine 05/18/2022 10: 35 AM EST TISSUE CULTURE Routine 05/18/2022 10:35 AM EST SURGICAL PATHOLOGY REPORT Routine 05/18/2022 10:19 AM EST SPECIMEN TO PATHOLOGY Routine 05/18/2022 10:19 AM EST BLOOD GAS ARTERIAL POC Routine 05/18/2022 10:17 AM EST Reconstruct Injured Chest ([id number]) 05/18/2022 9:19 AM EST Status post lobectomy of lung MODIFIER RIB RESECTION 05/18/2022 9:19 AM EST Status post lobectomy of lung Bronchoscopy, Diagnostic ([id number]) 05/18/2022 9:19 AM EST Status post lobectomy of lung Decortication, Pulmonary, Total ([id number]) 05/18/2022 9:19 AM EST Status post lobectomy of lung XR FLUORO NO RAD <1HR - OR USE Routine 05/18/2022 9:16 AM EST EKG 12-LEAD STAT 05/18/2022 8:00 AM EST Atrial fibrillation, unspecified type POCT GLUCOSE Routine 05/18/2022 7:29 AM EST documented in this encounter Results * XR Chest PA & Lateral (Generic) (06/11/2022 2:23 PM EDT) Anatomical Region Laterality Modality Chest N/A Digital Radiogra phy Impressions 06/11/2022 4:12 PM EDT 1. ??Similar loculated left hydropneumothorax. 2. ??Pulmonary vascular congestion and interstitial pulmonary edema. I have personally reviewed the image(s) and the resident's interpretation and agree with the findings, Savanah Suazo MD at 06/11/2022 4:12 PM Thank you for letting us participate in the care of this patient. ??If you are a health care provider and have any questions regarding this report, please contact the number below. ??For patients who have questions please contact the health critical care unit manager that requested your imaging first. ? Electronically signed by: Savanah Suazo MD, [facility] ([phone]), at 06/11/2022 4:12 PM Narrative 06/11/2022 4:12 PM EDT EXAMINATION: XR CHEST PA AND LATERAL (GENERIC) CLINICAL HISTORY: s/p left thoracotomy and decortication eval for effusion and/or ptx TECHNIQUE: PA and lateral views of the chest COMPARISON: Chest radiograph 05/24/2022 FINDINGS: Similar loculated left hydropneumothorax along the lateral margin of the left hemithorax. Left lung volume loss with crowding of the bronchovascular markings and ill-defined hazy opacity. On the right there are prominent and somewhat indistinct pulmonary vascular markings and increased right infrahilar opacity. No right pneumothorax or pleural effusion. The cardiomediastinal silhouette is within normal limits. No acute osseous abnormality. Unchanged appearance of posterior left sixth rib resection. Procedure Note Savanah Paredes MD - 06/11/2022 EXAMINATION: XR CHEST PA AND LATERAL (GENERIC) CLINICAL HISTORY: s/p left thoracotomy and decortication eval for effusion and/or ptx TECHNIQUE: PA and lateral views of the chest COMPARISON: Chest radiograph 05/24/2022 FINDINGS: Similar loculated left hydropneumothorax along the lateral margin of theleft hemithorax. Left lung volume loss with crowding of the bronchovascularmarkings and ill-defined hazy opacity. On the right there are prominent andsomewhat indistinct pulmonary vascular markings and increased right infrahilaropacity. No right pneumothorax or pleural effusion. The cardiomediastinalsilhouette is within normal limits. No acute osseous abnormality. Unchanged appearanceof posterior left sixth rib resection. IMPRESSION 1. Similar loculated left hydropneumothorax. 2. Pulmonary vascular congestion and interstitial pulmonary edema. I have personally reviewed the image(s) and the resident's interpretationand agree with the findings, Savanah Suazo MD at 06/11/2022 4:12PM Thank you for letting us participate in the care of this patient. If youare a health care provider and have any questions regarding this report,please contact the number below. For patients who have questions please contactthe health critical care unit manager that requested your imaging first. Electronically signed by: Savanah Suazo MD, [facility] ([phone]), at 06/11/2022 4:12 PM Gilmer Foster MD IMG DX ORDERABLE S * SCAN DOC: IMPLANTABLE DEVICES (05/29/2022 2:19 PM EDT) Narrative 05/29/2022 2:19 PM EDT Ordered by an unspecified provider. Scanning Provider MEDIA MGR SCAN EXT O RDR/RSLT * XR Chest PA & Lateral (Generic) (05/24/2022 8:44 AM EDT) Anatomical Region Laterality Modality Chest N/A Digital Radiogra phy Impressions 05/24/2022 10:06 AM EDT 1. ??Interval removal of the left chest tube with unchanged loculated hydropneumothorax along the left peripheral hemithorax. I have personally reviewed the image(s) and the resident's interpretation and agree with the findings, Marcus Edwards MD at 05/24/2022 10:06 AM Thank you for letting us participate in the care of this patient. ??If you are a health care provider and have any questions regarding this report, please contact the number below. ??For patients who have questions please contact the health critical care unit manager that requested your imaging first. ? Electronically signed by: Marcus Edwards MD, [facility] ([phone]), at 05/24/2022 10:06 AM Narrative 05/24/2022 10:06 AM EDT EXAMINATION: XR CHEST PA AND LATERAL (GENERIC) CLINICAL HISTORY: s/p left thoracotomy and decortication, interval removal of chest tube eval for effusion or ptx TECHNIQUE: PA and lateral views of the chest COMPARISON: Chest radiographs 05/24/2022 0531 FINDINGS: Epidural catheter is in unchanged position. Interval removal of the left pleural catheter with unchanged peripherally loculated hydropneumothorax. No right pneumothorax or pleural effusion. Interval decreased hazy opacity in the right lung base with persistent small region remaining. Cardiomediastinal contours are within normal limits. Unchanged appearance of the left posterior sixth rib resection. No interval osseous findings. Stable small volume of subcutaneous emphysema along the left lateral chest wall. Procedure Note Marcus Edwards MD - 05/24/2022 EXAMINATION: XR CHEST PA AND LATERAL (GENERIC) CLINICAL HISTORY: s/p left thoracotomy and decortication, interval removalof chest tube eval for effusion or ptx TECHNIQUE: PA and lateral views of the chest COMPARISON: Chest radiographs 05/24/2022 0531 FINDINGS: Epidural catheter is in unchanged position. Interval removal of the leftpleural catheter with unchanged peripherally loculated hydropneumothorax. Noright pneumothorax or pleural effusion. Interval decreased hazy opacity in theright lung base with persistent small region remaining. Cardiomediastinalcontours are within normal limits. Unchanged appearance of the left posterior sixthrib resection. No interval osseous findings. Stable small volume ofsubcutaneous emphysema along the left lateral chest wall. IMPRESSION 1. Interval removal of the left chest tube with unchanged loculated hydropneumothorax along the left peripheral hemithorax. I have personally reviewed the image(s) and the resident's interpretationand agree with the findings, Marcus Edwards MD at 05/24/2022 10:06 AM Thank you for letting us participate in the care of this patient. If youare a health care provider and have any questions regarding this report,please contact the number below. For patients who have questions please contactthe health critical care unit manager that requested your imaging first. Electronically signed by: Marcus Edwards MD, [facility]([phone]), at 05/24/2022 10:06 AM Gilmer Foster MD IMG DX ORDERABLE S * XR Chest PA & Lateral (Generic) (05/24/2022 5:35 AM EDT) Anatomical Region Laterality Modality Chest N/A Digital Radiogra phy Impressions 05/24/2022 8:58 AM EDT Unchanged moderate left hydropneumothorax. Hazy opacity at the right lung base and in the left lung likely represents atelectasis. I have personally reviewed the image(s) and the resident's interpretation and agree with the findings, Marcus Edwards MD at 05/24/2022 8:58 AM Thank you for letting us participate in the care of this patient. ??If you are a health care provider and have any questions regarding this report, please contact the number below. ??For patients who have questions please contact the health critical care unit manager that requested your imaging first. ? Electronically signed by: Marcus Edwards MD, [facility] ([phone]), at 05/24/2022 8:58 AM Narrative 05/24/2022 8:58 AM EDT EXAMINATION: XR CHEST PA AND LATERAL (GENERIC) CLINICAL HISTORY: chest tube transitioned to water seal 05/23/2022, please eval for ptx, effusion, interval change TECHNIQUE: AP and lateral views of the chest, 2 images COMPARISON: Chest radiograph 05/23/2022, 05/19/2022, 05/18/2022 FINDINGS: A left apically directed chest tube is present. Epidural catheter is present. The cardiac, mediastinal, and hilar contours are normal. Unchanged hazy opacity of the left lung. Unchanged moderate left hydropneumothorax. Hazy opacity at the right base, unchanged. Unchanged appearance of left rib resection. No interval osseous findings. Procedure Note Marcus Edwards MD - 05/24/2022 EXAMINATION: XR CHEST PA AND LATERAL (GENERIC) CLINICAL HISTORY: chest tube transitioned to water seal 05/23/2022, pleaseeval for ptx, effusion, interval change TECHNIQUE: AP and lateral views of the chest, 2 images COMPARISON: Chest radiograph 05/23/2022, 05/19/2022, 05/18/2022 FINDINGS: A left apically directed chest tube is present. Epidural catheter ispresent. The cardiac, mediastinal, and hilar contours are normal. Unchanged hazyopacity of the left lung. Unchanged moderate left hydropneumothorax. Hazy opacityat the right base, unchanged. Unchanged appearance of left rib resection. Nointerval osseous findings. IMPRESSION Unchanged moderate left hydropneumothorax. Hazy opacity at the right lung base and in the left lung likelyrepresents atelectasis. I have personally reviewed the image(s) and the resident's interpretationand agree with the findings, Marcus Edwards MD at 05/24/2022 8:58 AM Thank you for letting us participate in the care of this patient. If youare a health care provider and have any questions regarding this report,please contact the number below. For patients who have questions please contactthe health critical care unit manager that requested your imaging first. Electronically signed by: Marcus Edwards MD, [facility]([phone]), at 05/24/2022 8:58 AM Gilmer Foster MD IMG DX ORDERABLE S * Differential, Automated (05/24/2022 3:36 AM EDT) Neutrophil % 69.4 % [facility] Neutrophil Absolute 4.63 1.70 - 6.10 x10(3)/[facility] Lymph % 17.4 % [facility] Lymphocytes Abs 1.2 0.9 - 3.2 x10(3)/[facility] Monocyte % 11.1 % [facility] Monocyte Abs 0.7 0.3 - 0.9 x10(3)/[facility] Eos % 1.3 % [facility] Eosinophils Abs 0.1 0.0 - 0.4 x10(3)/[facility] Basophil % 0.7 % [facility] Baso Absolute 0.0 0.0 - 0.1 x10(3)/[facility] Immature Gran % 0.10 % [facility] Comment: Immature granulocytes(IG's)percentage and absolute count will include metamyelocytes, myelocytes, and promyelocytes. Blood smears from CBCs yielding IG's will be scanned manually for concordance. If this scan disagrees with the automated IG or if promyelocytes are noted, a manual differential will be performed. Immature Gran Absolute 0.01 0.00 - 0.04 x10(3)/[facility] Blood 05/24/2022 3:36 AM EDT 05/24/2022 4:02 AM EDT Narrative Resulting Agency Comment Spec In Lab Morales Armas MD HEMATOLOGY ORDERABLE S [facility] [address] * (ABNORMAL) Hemogram (05/24/2022 3:36 AM EDT) White Blood Cell 6.7 4.0 - 9.5 x10(3)/mc L [facility] Red Blood Cell 3.10(L) 4.58 - 5.54 x10(6)/mc L [facility] Hemoglobin 8.1(L) 13.7 - 16.5 g/dL [facility] Hematocrit 25.8(L) 40.5 - 48.5 % [facility] Mean Cell Volume 83.2 82.9 - 93.1 fL [facility] Mean Cell Hemoglobin 26.1(L) 27.5 - 32.1 pg [facility] Mean Cell Hemoglobin Concentration 31.4(L) 32.0 - 35.7 g/dL [facility] Platelet 262 145 - 357 x10(3)/mc L [facility] RDW Standard Deviation 54.4(H) 36.0 - 45.0 fL [facility] RDW coefficient of variation 18.2(H) 11.4 - 13.8 % [facility] Mean Platelet Volume 8.3 7.6 - 12.9 fL [facility] NRBC% auto 0.0 % [facility] NRBC Absolute 0.000 0.000 - 0.000 x10(3)/mc L [facility] Blood 05/24/2022 3:36 AM EDT 05/24/2022 4:02 AM EDT Narrative Resulting Agency Comment Spec In Lab Morales Armas MD HEMATOLOGY ORDERABLE S [facility] [address] * (ABNORMAL) Basic Metabolic Panel (non-fasting) (05/24/2022 3:36 AM EDT) Glucose 99 65 - 199 mg/dL [facility] Comment:Diabetes: >=200 mg/d L plus symptoms Blood Urea Nitrogen 18 10 - 20 mg/dL [facility] Creatinine 0.91 0.80 - 1.50 mg/dL [facility] Sodium 138 135 - 145 mmol/L [facility] Potassium 3.6 3.5 - 5.0 mmol/L [facility] Comment: Please note: ??Patients with WBC >100,000 may have falsely elevated Potassium levels. ??For accurate Potassium quantification in these patients send serum separator tube (gold top) for subsequent determinations. ??Contact the Clinical Chemistry Laboratory if there are any questions. Chloride 104 98 - 107 mmol/L [facility] Carbon Dioxide 25 22 - 31 mmol/L [facility] Anion Gap 9 5 - 15 mmol/L [facility] Calcium 8.3(L) 8.5 - 10.5 mg/dL [facility] Est Glomerular Filtration Rate 90 >=60 mL/min/1. 73 m?? [facility] Comment: This patient's estimated GFR was [...] and symptoms in addition to eGFR. Blood 05/24/2022 3:36 AM EDT 05/24/2022 4:02 AM EDT Narrative Resulting Agency Comment Spec In Lab Gilmer Foster MD CHEMISTRY ORDERA BLES [facility] [address] * XR Chest PA & Lateral (Generic) (05/23/2022 7:00 AM EDT) Anatomical Region Laterality Modality Chest N/A Digital Radiogra phy Impressions 05/23/2022 7:33 AM EDT * ??Apically directed left chest tube in unchanged position with the side-hole projecting external to the rib cage. * ??Improved air component of left hydropneumothorax. * ??Persistent diffuse hazy opacification of the left lung. Thank you for letting us participate in the care of this patient. ??If you are a health care provider and have any questions regarding this report, please contact the number below. ??For patients who have questions please contact the health critical care unit manager that requested your imaging first. ? Electronically signed by: Philip Church MD, [facility] ([phone]), at 05/23/2022 7:33 AM Narrative 05/23/2022 7:33 AM EDT EXAMINATION: XR CHEST PA AND LATERAL (GENERIC) CLINICAL HISTORY: s/p L thoracotomy for total decortication pneumo, effusions, interval changes TECHNIQUE: AP and lateral views of the chest. 3 images COMPARISON: Chest x-ray 05/19/2022 FINDINGS: Apically directed left chest tube in unchanged position with the side-hole projecting external to the rib cage. Improved air component of left hydropneumothorax. Persistent diffuse hazy opacification of the left lung. Unchanged cardiomediastinal silhouette and osseous structures. Unremarkable upper abdomen. Epidural catheter in similar position. Procedure Note Atiya Church MD - 05/23/2022 EXAMINATION: XR CHEST PA AND LATERAL (GENERIC) CLINICAL HISTORY: s/p L thoracotomy for total decortication pneumo, effusions, interval changes TECHNIQUE: AP and lateral views of the chest. 3 images COMPARISON: Chest x-ray 05/19/2022 FINDINGS: Apically directed left chest tube in unchanged position with theside-hole projecting external to the rib cage. Improved air component of left hydropneumothorax. Persistent diffuse hazy opacification of the leftlung. Unchanged cardiomediastinal silhouette and osseous structures.Unremarkable upper abdomen. Epidural catheter in similar position. IMPRESSION * Apically directed left chest tube in unchanged position with theside-hole projecting external to the rib cage. * Improved air component of left hydropneumothorax. * Persistent diffuse hazy opacification of the left lung. Thank you for letting us participate in the care of this patient. If youare a health care provider and have any questions regarding this report,please contact the number below. For patients who have questions please contactthe health critical care unit manager that requested your imaging first. Electronically signed by: Philip Church [facility]([phone]), at 05/23/2022 7:33 AM Gilmer Foster MD IMG DX ORDERABLE S * Differential, Automated (05/23/2022 3:52 AM EDT) Neutrophil % 69.8 % [facility] Neutrophil Absolute 4.74 1.70 - 6.10 x10(3)/[facility] Lymph % 18.7 % [facility] Lymphocytes Abs 1.3 0.9 - 3.2 x10(3)/[facility] Monocyte % 10.2 % [facility] Monocyte Abs 0.7 0.3 - 0.9 x10(3)/[facility] Eos % 0.6 % [facility] Eosinophils Abs 0.0 0.0 - 0.4 x10(3)/[facility] Basophil % 0.4 % [facility] Baso Absolute 0.0 0.0 - 0.1 x10(3)/[facility] Immature Gran % 0.30 % [facility] Comment: Immature granulocytes(IG's)percentage and absolute count will include metamyelocytes, myelocytes, and promyelocytes. Blood smears from CBCs yielding IG's will be scanned manually for concordance. If this scan disagrees with the automated IG or if promyelocytes are noted, a manual differential will be performed. Immature Gran Absolute 0.02 0.00 - 0.04 x10(3)/[facility] Blood 05/23/2022 3:52 AM EDT 05/23/2022 4:08 AM EDT Narrative Resulting Agency Comment Spec In Lab Morales Armas MD HEMATOLOGY ORDERABLE S [facility] [address] * (ABNORMAL) Hemogram (05/23/2022 3:52 AM EDT) White Blood Cell 6.8 4.0 - 9.5 x10(3)/mc L [facility] Red Blood Cell 3.13(L) 4.58 - 5.54 x10(6)/[facility] Hemoglobin 8.2(L) 13.7 - 16.5 g/dL [facility] Hematocrit 26.5(L) 40.5 - 48.5 % [facility] Mean Cell Volume 84.7 82.9 - 93.1 fL [facility] Mean Cell Hemoglobin 26.2(L) 27.5 - 32.1 pg [facility] Mean Cell Hemoglobin Concentration 30.9(L) 32.0 - 35.7 g/dL [facility] Platelet 256 145 - 357 x10(3)/mc L [facility] RDW Standard Deviation 55.4(H) 36.0 - 45.0 fL [facility] RDW coefficient of variation 17.9(H) 11.4 - 13.8 % [facility] Mean Platelet Volume 8.3 7.6 - 12.9 fL [facility] NRBC% auto 0.0 % [facility] NRBC Absolute 0.000 0.000 - 0.000 x10(3)/mc L [facility] Blood 05/23/2022 3:52 AM EDT 05/23/2022 4:08 AM EDT Narrative Resulting Agency Comment Spec In Lab Morales Armas MD HEMATOLOGY ORDERABLE S Performing Organization Address City/State/[facility] Co de Phone Number [facility] [place] [address] * Basic Metabolic Panel (non-fasting) (05/23/2022 3:52 AM EDT) Glucose 99 65 - 199 mg/dL [facility] Comment:Diabetes: >=200 mg/d L plus symptoms Blood Urea Nitrogen 14 10 - 20 mg/dL [facility] Creatinine 0.94 0.80 - 1.50 mg/dL [facility] Sodium 135 135 - 145 mmol/L [facility] Potassium 3.6 3.5 - 5.0 mmol/L [facility] Comment: Please note: ??Patients with WBC >100,000 may have falsely elevated Potassium levels. ??For accurate Potassium quantification in these patients send serum separator tube (gold top) for subsequent determinations. ??Contact the Clinical Chemistry Laboratory if there are any questions. Chloride 100 98 - 107 mmol/L [facility] Carbon Dioxide 27 22 - 31 mmol/L [facility] Anion Gap 8 5 - 15 mmol/L [facility] Calcium 8.6 8.5 - 10.5 mg/dL [facility] Est Glomerular Filtration Rate 86 >=60 mL/min/1. 73 m?? [facility] Comment: This patient's estimated GFR was [...] and symptoms in addition to eGFR. Blood 05/23/2022 3:52 AM EDT 05/23/2022 4:08 AM EDT Narrative Resulting Agency Comment Spec In Lab Gilmer Foster MD CHEMISTRY ORDERA BLES [facility] [address] * Differential, Automated (05/22/2022 3:47 AM EDT) Neutrophil % 72.4 % [facility] Neutrophil Absolute 5.30 1.70 - 6.10 x10(3)/[facility] Lymph % 15.2 % [facility] Lymphocytes Abs 1.1 0.9 - 3.2 x10(3)/[facility] Monocyte % 11.1 % [facility] Monocyte Abs 0.8 0.3 - 0.9 x10(3)/[facility] Eos % 0.5 % [facility] Eosinophils Abs 0.0 0.0 - 0.4 x10(3)/[facility] Basophil % 0.4 % [facility] Baso Absolute 0.0 0.0 - 0.1 x10(3)/[facility] Immature Gran % 0.40 % [facility] Comment: Immature granulocytes(IG's)percentage and absolute count will include metamyelocytes, myelocytes, and promyelocytes. Blood smears from CBCs yielding IG's will be scanned manually for concordance. If this scan disagrees with the automated IG or if promyelocytes are noted, a manual differential will be performed. Immature Gran Absolute 0.03 0.00 - 0.04 x10(3)/mcL [facility] Blood 05/22/2022 3:47 AM EDT 05/22/2022 4:15 AM EDT Narrative Resulting Agency Comment Spec In Lab Morales Armas MD HEMATOLOGY ORDERABLE S [facility] [address] * (ABNORMAL) Hemogram (05/22/2022 3:47 AM EDT) White Blood Cell 7.3 4.0 - 9.5 x10(3)/mc L [facility] Red Blood Cell 2.93(L) 4.58 - 5.54 x10(6)/mc L [facility] Hemoglobin 7.6(L) 13.7 - 16.5 g/dL [facility] Hematocrit 24.3(L) 40.5 - 48.5 % [facility] Mean Cell Volume 82.9 82.9 - 93.1 fL [facility] Mean Cell Hemoglobin 25.9(L) 27.5 - 32.1 pg [facility] Mean Cell Hemoglobin Concentration 31.3(L) 32.0 - 35.7 g/dL [facility] Platelet 236 145 - 357 x10(3)/mc L [facility] RDW Standard Deviation 53.4(H) 36.0 - 45.0 fL [facility] RDW coefficient of variation 17.5(H) 11.4 - 13.8 % [facility] Mean Platelet Volume 8.6 7.6 - 12.9 fL [facility] NRBC% auto 0.0 % [facility] NRBC Absolute 0.000 0.000 - 0.000 x10(3)/mc L [facility] Blood 05/22/2022 3:47 AM EDT 05/22/2022 4:15 AM EDT Narrative Resulting Agency Comment Spec In Lab Morales Armas MD HEMATOLOGY ORDERABLE S [facility] [address] * Basic Metabolic Panel (non-fasting) (05/22/2022 3:47 AM EDT) Glucose 101 65 - 199 mg/dL [facility] Comment:Diabetes: >=200 mg/d L plus symptoms Blood Urea Nitrogen 14 10 - 20 mg/dL [facility] Comment:result rechecked-bm Creatinine 0.90 0.80 - 1.50 mg/dL [facility] Sodium 137 135 - 145 mmol/L [facility] Potassium 3.8 3.5 - 5.0 mmol/L [facility] Comment: Please note: ??Patients with WBC >100,000 may have falsely elevated Potassium levels. ??For accurate Potassium quantification in these patients send serum separator tube (gold top) for subsequent determinations. ??Contact the Clinical Chemistry Laboratory if there are any questions. Chloride 102 98 - 107 mmol/L [facility] Carbon Dioxide 26 22 - 31 mmol/L [facility] Anion Gap 9 5 - 15 mmol/L [facility] Calcium 8.5 8.5 - 10.5 mg/dL [facility] Est Glomerular Filtration Rate 91 >=60 mL/min/1. 73 m?? [facility] Comment: This patient's estimated GFR was [...] and symptoms in addition to eGFR. Blood 05/22/2022 3:47 AM EDT 05/22/2022 4:15 AM EDT Narrative Resulting Agency Comment Spec In Lab Gilmer Foster MD CHEMISTRY ORDERA BLES [facility] [place] [address] * EKG 12 Lead (05/21/2022 7:36 AM EDT) Ventricular rate 118 BPM MUSE SYSTEM Atrial Rate 118 BPM MUSE SYSTEM P-R Interval 216 ms MUSE SYSTEM QRS Duration 106 ms MUSE SYSTEM Q-T Interval 324 ms MUSE SYSTEM QTC Calculated (Bezet) 454 ms MUSE SYSTEM Calculated R [place] 82 degrees MUSE SYSTEM Calculated T [place] -102 degrees MUSE SYSTEM INTERPRETATION Sinus tachycardia with 1st degree A-V block Minimal voltage criteria for LVH, may be normal variant ( Crane product ) Nonspecific T wave abnormality Abnormal ECG When compared with ECG of 18-MAY-2022 08:00, (unconfirmed) Sinus rhythm has replaced Atrial flutter Incomplete left bundle block is no longer Present Confirmed by MD Stacy, Kyrie ([id number]) on 05/21/2022 1:03:09 PM MUSE SYSTEM 05/21/2022 7:36 AM EDT 05/21/2022 1:03 PM EDT Gilmer Foster MD ECG ORDERABLES MUSE SYSTEM * Differential, Automated (05/21/2022 4:09 AM EDT) Pathologist [facility] Neutrophil % 72.4 % [facility] Neutrophil Absolute 4.83 1.70 - 6.10 x10(3)/[facility] Lymph % 14.5 % [facility] Lymphocytes Abs 1.0 0.9 - 3.2 x10(3)/[facility] Monocyte % 12.3 % [facility] Monocyte Abs 0.8 0.3 - 0.9 x10(3)/[facility] Eos % 0.1 % [facility] Eosinophils Abs 0.0 0.0 - 0.4 x10(3)/[facility] Basophil % 0.4 % [facility] Baso Absolute 0.0 0.0 - 0.1 x10(3)/[facility] Immature Gran % 0.30 % [facility] Comment: Immature granulocytes(IG's)percentage and absolute count will include metamyelocytes, myelocytes, and promyelocytes. Blood smears from CBCs yielding IG's will be scanned manually for concordance. If this scan disagrees with the automated IG or if promyelocytes are noted, a manual differential will be performed. Immature Gran Absolute 0.02 0.00 - 0.04 x10(3)/mcL [facility] Blood 05/21/2022 4:09 AM EDT 05/21/2022 5:00 AM EDT Narrative Resulting Agency Comment Spec In Lab Morales Armas MD HEMATOLOGY ORDERABLE S [facility] [address] * (ABNORMAL) Hemogram (05/21/2022 4:09 AM EDT) White Blood Cell 6.7 4.0 - 9.5 x10(3)/mc L [facility] Red Blood Cell 3.01(L) 4.58 - 5.54 x10(6)/mc L [facility] Hemoglobin 7.9(L) 13.7 - 16.5 g/dL [facility] Hematocrit 25.6(L) 40.5 - 48.5 % [facility] Mean Cell Volume 85.0 82.9 - 93.1 fL [facility] Mean Cell Hemoglobin 26.2(L) 27.5 - 32.1 pg [facility] Mean Cell Hemoglobin Concentration 30.9(L) 32.0 - 35.7 g/dL [facility] Platelet 226 145 - 357 x10(3)/mc L [facility] RDW Standard Deviation 53.6(H) 36.0 - 45.0 fL [facility] RDW coefficient of variation 17.3(H) 11.4 - 13.8 % [facility] Mean Platelet Volume 9.1 7.6 - 12.9 fL [facility] NRBC% auto 0.0 % [facility] NRBC Absolute 0.000 0.000 - 0.000 x10(3)/mc L [facility] Blood 05/21/2022 4:09 AM EDT 05/21/2022 5:00 AM EDT Narrative Resulting Agency Comment Spec In Lab Morales Armas MD HEMATOLOGY ORDERABLE S [facility] [address] * (ABNORMAL) Basic Metabolic Panel (non-fasting) (05/21/2022 4:09 AM EDT) Glucose 84 65 - 199 mg/dL [facility] Comment:Diabetes: >=200 mg/d L plus symptoms Blood Urea Nitrogen 7(L) 10 - 20 mg/dL [facility] Creatinine 0.71(L) 0.80 - 1.50 mg/dL [facility] Sodium 137 135 - 145 mmol/L [facility] Potassium 3.5 3.5 - 5.0 mmol/L [facility] Comment: Please note: ??Patients with WBC >100,000 may have falsely elevated Potassium levels. ??For accurate Potassium quantification in these patients send serum separator tube (gold top) for subsequent determinations. ??Contact the Clinical Chemistry Laboratory if there are any questions. Chloride 103 98 - 107 mmol/L [facility] Carbon Dioxide 27 22 - 31 mmol/L [facility] Anion Gap 7 5 - 15 mmol/L [facility] Calcium 8.7 8.5 - 10.5 mg/dL [facility] Est Glomerular Filtration Rate 97 >=60 mL/min/1. 73 m?? [facility] Comment: This patient's estimated GFR was [...] and symptoms in addition to eGFR. Blood 05/21/2022 4:09 AM EDT 05/21/2022 5:00 AM EDT Narrative Resulting Agency Comment Spec In Lab Gilmer Foster MD CHEMISTRY ORDERA BLES Performing Organization Address City/[facility]/ZIP Co de Phone Number [facility] [address] * Differential, Automated (05/20/2022 4:08 AM EDT) Neutrophil % 74.7 % [facility] Neutrophil Absolute 5.59 1.70 - 6.10 x10(3)/[facility] Lymph % 12.6 % [facility] Lymphocytes Abs 0.9 0.9 - 3.2 x10(3)/[facility] Monocyte % 11.9 % [facility] Monocyte Abs 0.9 0.3 - 0.9 x10(3)/[facility] Eos % 0.0 % [facility] Eosinophils Abs 0.0 0.0 - 0.4 x10(3)/[facility] Basophil % 0.3 % [facility] Baso Absolute 0.0 0.0 - 0.1 x10(3)/[facility] Immature Gran % 0.50 % [facility] Comment: Immature granulocytes(IG's)percentage and absolute count will include metamyelocytes, myelocytes, and promyelocytes. Blood smears from CBCs yielding IG's will be scanned manually for concordance. If this scan disagrees with the automated IG or if promyelocytes are noted, a manual differential will be performed. Immature Gran Absolute 0.04 0.00 - 0.04 x10(3)/[facility] Blood 05/20/2022 4:08 AM EDT 05/20/2022 4:48 AM EDT Narrative Resulting Agency Comment Spec In Lab Morales Armas MD HEMATOLOGY ORDERABLE S Performing Organization Address [facility]/[place] [address] * (ABNORMAL) Hemogram (05/20/2022 4:08 AM EDT) White Blood Cell 7.5 4.0 - 9.5 x10(3)/mc L [facility] Red Blood Cell 3.07(L) 4.58 - 5.54 x10(6)/mc L [facility] Hemoglobin 8.0(L) 13.7 - 16.5 g/dL [facility] Hematocrit 25.9(L) 40.5 - 48.5 % [facility] Mean Cell Volume 84.4 82.9 - 93.1 fL [facility] Mean Cell Hemoglobin 26.1(L) 27.5 - 32.1 pg [facility] Mean Cell Hemoglobin Concentration 30.9(L) 32.0 - 35.7 g/dL [facility] Platelet 207 145 - 357 x10(3)/mc L [facility] RDW Standard Deviation 53.7(H) 36.0 - 45.0 fL [facility] RDW coefficient of variation 17.4(H) 11.4 - 13.8 % [facility] Mean Platelet Volume 8.7 7.6 - 12.9 fL [facility] NRBC% auto 0.0 % [facility] NRBC Absolute 0.000 0.000 - 0.000 x10(3)/ L [facility] Blood 05/20/2022 4:08 AM EDT 05/20/2022 4:48 AM EDT Narrative Resulting Agency Comment Spec In Lab Morales Armas MD HEMATOLOGY ORDERABLE S Performing Organization Address City/State/[facility] Co de Phone Number [facility] [address] * (ABNORMAL) Basic Metabolic Panel (non-fasting) (05/20/2022 4:08 AM EDT) Glucose 99 65 - 199 mg/dL [facility] Comment:Diabetes: >=200 mg/d L plus symptoms Blood Urea Nitrogen 11 10 - 20 mg/dL [facility] Creatinine 0.79(L) 0.80 - 1.50 mg/dL [facility] Sodium 133(L) 135 - 145 mmol/L [facility] Potassium 3.8 3.5 - 5.0 mmol/L [facility] Comment: Please note: ??Patients with WBC >100,000 may have falsely elevated Potassium levels. ??For accurate Potassium quantification in these patients send serum separator tube (gold top) for subsequent determinations. ??Contact the Clinical Chemistry Laboratory if there are any questions. Chloride 102 98 - 107 mmol/L [facility] Carbon Dioxide 23 22 - 31 mmol/L [facility] Anion Gap 8 5 - 15 mmol/L [facility] Calcium 8.3(L) 8.5 - 10.5 mg/dL [facility] Est Glomerular Filtration Rate 94 >=60 mL/min/1. 73 m?? [facility] Comment: This patient's estimated GFR was [...] and symptoms in addition to eGFR. Blood 05/20/2022 4:08 AM EDT 05/20/2022 4:48 AM EDT Narrative Resulting Agency Comment Spec In Lab Gilmer Foster MD CHEMISTRY ORDERA [facility] Performing Organization Address City/State/[facility] Co de Phone Number [facility] [address] * XR Chest PA & Lateral (Generic) (05/19/2022 11:06 AM EST) Anatomical Region Laterality Modality Chest N/A Digital Radiogra phy Impressions 05/19/2022 11:16 AM EST Similar partially loculated moderate left hydropneumothorax. Thank you for letting us participate in the care of this patient. ??If you are a health care provider and have any questions regarding this report, please contact the number below. ??For patients who have questions please contact the health critical care unit manager that requested your imaging first. ? Electronically signed by: Savanah Suazo MD, [facility] ([phone]), at 05/19/2022 11:16 AM Narrative 05/19/2022 11:16 AM EST EXAMINATION: XR CHEST PA AND LATERAL (GENERIC) CLINICAL HISTORY: s/p left thoracotomy and total decortication TECHNIQUE: AP and lateral views of the chest COMPARISON: 05/18/2022. FINDINGS: Stable left-sided chest tube. Persistent moderate left hydropneumothorax and mild subcutaneous emphysema. Right lung remains clear. Normal size of the heart and normal width of the mediastinum. Epidural catheter ends in projection onto the thoracic spine. Procedure Note Savanah Paredes MD - 05/19/2022 EXAMINATION: XR CHEST PA AND LATERAL (GENERIC) CLINICAL HISTORY: s/p left thoracotomy and total decortication TECHNIQUE: AP and lateral views of the chest COMPARISON: 05/18/2022. FINDINGS: Stable left-sided chest tube. Persistent moderate left hydropneumothoraxand mild subcutaneous emphysema. Right lung remains clear. Normal size of the heart and normal width ofthe mediastinum. Epidural catheter ends in projection onto the thoracicspine. IMPRESSION Similar partially loculated moderate left hydropneumothorax. Thank you for letting us participate in the care of this patient. If youare a health care provider and have any questions regarding this report,please contact the number below. For patients who have questions please contactthe health critical care unit manager that requested your imaging first. Electronically signed by: Savanah Suazo MD, [facility] ([phone]), at 05/19/2022 11:16 AM Gilmer Foster MD IMG DX ORDERABLE S * (ABNORMAL) Differential, Automated (05/19/2022 3:31 AM EST) [facility] Neutrophil % 80.9 % [facility] Neutrophil Absolute 8.95(H) 1.70 - 6.10 x10(3)/mc L [facility] Lymph % 9.3 % [facility] Lymphocytes Abs 1.0 0.9 - 3.2 x10(3)/mc L [facility] Monocyte % 9.2 % [facility] Monocyte Abs 1.0(H) 0.3 - 0.9 x10(3)/mc L [facility] Eos % 0.0 % [facility] Eosinophils Abs 0.0 0.0 - 0.4 x10(3)/mc L [facility] Basophil % 0.1 % [facility] Baso Absolute 0.0 0.0 - 0.1 x10(3)/mc L [facility] Immature Gran % 0.50 % [facility] Comment: Immature granulocytes(IG's)percentage and absolute count will include metamyelocytes, myelocytes, and promyelocytes. Blood smears from CBCs yielding IG's will be scanned manually for concordance. If this scan disagrees with the automated IG or if promyelocytes are noted, a manual differential will be performed. Immature Gran Absolute 0.05(H) 0.00 - 0.04 x10(3)/mc L [facility] Blood 05/19/2022 3:31 AM EST 05/19/2022 3:56 AM EST Narrative Resulting Agency Comment Spec In Lab Morales Armas MD HEMATOLOGY ORDERABLE S Performing Organization Address City/State/[facility] Co de Phone Number [facility] [address] * (ABNORMAL) Hemogram (05/19/2022 3:31 AM EST) White Blood Cell 11.1(H) 4.0 - 9.5 x10(3)/mc L [facility] Red Blood Cell 3.23(L) 4.58 - 5.54 x10(6)/mc L [facility] Hemoglobin 8.5(L) 13.7 - 16.5 g/dL [facility] Hematocrit 26.8(L) 40.5 - 48.5 % [facility] Mean Cell Volume 83.0 82.9 - 93.1 fL [facility] Mean Cell Hemoglobin 26.3(L) 27.5 - 32.1 pg [facility] Mean Cell Hemoglobin Concentration 31.7(L) 32.0 - 35.7 g/dL [facility] Platelet 245 145 - 357 x10(3)/mc L [facility] RDW Standard Deviation 52.6(H) 36.0 - 45.0 fL [facility] RDW coefficient of variation 17.3(H) 11.4 - 13.8 % [facility] Mean Platelet Volume 8.4 7.6 - 12.9 fL [facility] NRBC% auto 0.0 % [facility] NRBC Absolute 0.000 0.000 - 0.000 x10(3)/mc L [facility] Blood 05/19/2022 3:31 AM EST 05/19/2022 3:56 AM EST Narrative Resulting Agency Comment Spec In Lab Morales Armas MD HEMATOLOGY ORDERABLE S [facility] [place] [address] * Basic Metabolic Panel (non-fasting) (05/19/2022 3:31 AM EST) Glucose 111 65 - 199 mg/dL [facility] Comment:Diabetes: >=200 mg/d L plus symptoms Blood Urea Nitrogen 13 10 - 20 mg/dL [facility] Creatinine 0.93 0.80 - 1.50 mg/dL [facility] Sodium 135 135 - 145 mmol/L [facility] Potassium 4.8 3.5 - 5.0 mmol/L [facility] Comment: Please note: ??Patients with WBC >100,000 may have falsely elevated Potassium levels. ??For accurate Potassium quantification in these patients send serum separator tube (gold top) for subsequent determinations. ??Contact the Clinical Chemistry Laboratory if there are any questions. Chloride 102 98 - 107 mmol/L [facility] Carbon Dioxide 24 22 - 31 mmol/L [facility] Anion Gap 9 5 - 15 mmol/L [facility] Calcium 8.5 8.5 - 10.5 mg/dL [facility] Est Glomerular Filtration Rate 87 >=60 mL/min/1. 73 m?? [facility] Comment: This patient's estimated GFR was [...] and symptoms in addition to eGFR. Blood 05/19/2022 3:31 AM EST 05/19/2022 3:56 AM EST Narrative Resulting Agency Comment Spec In Lab Gilmer Foster MD CHEMISTRY ORDERA JOSIE [facility] [address] * XR Chest One View (05/18/2022 4:01 PM EST) Anatomical Region Laterality Modality Chest N/A Digital Radiogra phy Impressions 05/18/2022 4:02 PM EST Loculated small to moderate left hydropneumothorax with thickened left pleural reflection and new left subcutaneous emphysema. Thank you for letting us participate in the care of this patient. ??If you are a health care provider and have any questions regarding this report, please contact the number below. ??For patients who have questions please contact the health critical care unit manager that requested your imaging first. ? Electronically signed by: Maryann Magallanes MD, [facility] ([phone]), at 05/18/2022 4:02 PM Narrative 05/18/2022 4:02 PM EST EXAMINATION: XR CHEST ONE VIEW CLINICAL HISTORY: s/p thoracotomy and total decortication evaluate for lung expansion TECHNIQUE: 1 view of the chest COMPARISON: CT scan of the chest April 16, 2022 FINDINGS: Thickened left pleural reflection. Loculated small to moderate left hydropneumothorax. New left subcutaneous emphysema. Left chest tube in place. Chronic left lung volume loss. Right lung clear. Cardiomediastinal silhouette unchanged. Procedure Note Maryann Magallanes MD - 05/18/2022 EXAMINATION: XR CHEST ONE VIEW CLINICAL HISTORY: s/p thoracotomy and total decortication evaluate forlung expansion TECHNIQUE: 1 view of the chest COMPARISON: CT scan of the chest April 16, 2022 FINDINGS: Thickened left pleural reflection. Loculated small to moderate left hydropneumothorax. New left subcutaneous emphysema. Left chest tube inplace. Chronic left lung volume loss. Right lung clear. Cardiomediastinalsilhouette unchanged. IMPRESSION Loculated small to moderate left hydropneumothorax with thickened leftpleural reflection and new left subcutaneous emphysema. Thank you for letting us participate in the care of this patient. If youare a health care provider and have any questions regarding this report,please contact the number below. For patients who have questions please contactthe health critical care unit manager that requested your imaging first. Electronically signed by: Maryann Magallanes MD, [facility]([phone]), at 05/18/2022 4:02 PM Gilmer Foster MD IMG DX ORDERABLE S * (ABNORMAL) Differential, Automated (05/18/2022 2:18 PM EST) Neutrophil % 85.2 % [facility] Neutrophil Absolute 9.74(H) 1.70 - 6.10 x10(3)/mc L [facility] Lymph % 7.3 % [facility] Lymphocytes Abs 0.8(L) 0.9 - 3.2 x10(3)/mc L [facility] Monocyte % 6.8 % [facility] Monocyte Abs 0.8 0.3 - 0.9 x10(3)/mc L [facility] Eos % 0.2 % [facility] Eosinophils Abs 0.0 0.0 - 0.4 x10(3)/mc L [facility] Basophil % 0.2 % [facility] Baso Absolute 0.0 0.0 - 0.1 x10(3)/mc L [facility] Immature Gran % 0.30 % [facility] Comment: Immature granulocytes(IG's)percentage and absolute count will include metamyelocytes, myelocytes, and promyelocytes. Blood smears from CBCs yielding IG's will be scanned manually for concordance. If this scan disagrees with the automated IG or if promyelocytes are noted, a manual differential will be performed. Immature Gran Absolute 0.04 0.00 - 0.04 x10(3)/ L [facility] Blood 05/18/2022 2:18 PM EST 05/18/2022 2:30 PM EST Narrative Resulting Agency Comment Spec In Lab Morales Armas MD HEMATOLOGY ORDERABLE S [facility] [address] * (ABNORMAL) Hemogram (05/18/2022 2:18 PM EST) White Blood Cell 11.4(H) 4.0 - 9.5 x10(3)/mc L [facility] Red Blood Cell 3.19(L) 4.58 - 5.54 x10(6)/mc L [facility] Hemoglobin 8.4(L) 13.7 - 16.5 g/dL [facility] Hematocrit 26.5(L) 40.5 - 48.5 % [facility] Mean Cell Volume 83.1 82.9 - 93.1 fL [facility] Mean Cell Hemoglobin 26.3(L) 27.5 - 32.1 pg [facility] Mean Cell Hemoglobin Concentration 31.7(L) 32.0 - 35.7 g/dL [facility] Platelet 289 145 - 357 x10(3)/mc L [facility] RDW Standard Deviation 52.3(H) 36.0 - 45.0 fL [facility] RDW coefficient of variation 17.2(H) 11.4 - 13.8 % [facility] Mean Platelet Volume 8.4 7.6 - 12.9 fL [facility] NRBC% auto 0.0 % [facility] NRBC Absolute 0.000 0.000 - 0.000 x10(3)/mc L [facility] Blood 05/18/2022 2:18 PM EST 05/18/2022 2:30 PM EST Narrative Resulting Agency Comment Spec In Lab Morales Armas MD HEMATOLOGY ORDERABLE S [facility] [place] [address] * (ABNORMAL) Basic Metabolic Panel (non-fasting) (05/18/2022 2:18 PM EST) Glucose 117 65 - 199 mg/dL [facility] Comment:Diabetes: >=200 mg/d L plus symptoms Blood Urea Nitrogen 15 10 - 20 mg/dL [facility] Creatinine 0.96 0.80 - 1.50 mg/dL [facility] Sodium 138 135 - 145 mmol/L [facility] Potassium 4.4 3.5 - 5.0 mmol/L [facility] Comment: Please note: ??Patients with WBC >100,000 may have falsely elevated Potassium levels. ??For accurate Potassium quantification in these patients send serum separator tube (gold top) for subsequent determinations. ??Contact the Clinical Chemistry Laboratory if there are any questions. Chloride 106 98 - 107 mmol/L [facility] Carbon Dioxide 22 22 - 31 mmol/L [facility] Anion Gap 10 5 - 15 mmol/L [facility] Calcium 8.3(L) 8.5 - 10.5 mg/dL [facility] Est Glomerular Filtration Rate 84 >=60 mL/min/1. 73 m?? [facility] Comment: This patient's estimated GFR was [...] and symptoms in addition to eGFR. Blood 05/18/2022 2:18 PM EST 05/18/2022 2:30 PM EST Narrative Resulting Agency Comment Spec In Lab Gilmer Foster MD CHEMISTRY ORDERA BLES Performing Organization Address City/[facility]/ZIP Co de Phone Number [facility] [address] * Type and Screen Validity (05/18/2022 1:37 PM EST) T&S only valid at Count includes the [facility] Comment:This Type and Screen result is only valid at the [facility] Blood 05/18/2022 1:37 PM EST 05/18/2022 1:48 PM EST Narrative Resulting Agency Comment Spec In Lab Gilmer Foster MD BLOOD BANK LAB O RDERABLES Performing Organization Address [facility] Co de Phone Number [facility] [address] * ABORH Recheck Status (05/18/2022 1:37 PM EST) ABORH Recheck Order Order Placed [facility] ABORH Type Recheck Complete [facility] Blood 05/18/2022 1:37 PM EST 05/18/2022 1:48 PM EST Narrative Resulting Agency Comment Spec In Lab Gilmer Foster MD BLOOD BANK LAB O RDERABLES Performing Organization Address City/[facility] Co de Phone Number [facility] [address] * Antibody screen (05/18/2022 1:37 PM EST) Ab Screen Interp Negative [facility] Expires at [id number] on: 05/21/2022 [facility] Blood 05/18/2022 1:37 PM EST 05/18/2022 1:48 PM EST Narrative Resulting Agency Comment Spec In Lab Gilmer Foster MD BLOOD BANK LAB O RDERAJOSIE Performing Organization Address City/[facility]/ZIP Co de Phone Number [facility] [address] * ABO/Rh Typing (05/18/2022 1:37 PM EST) ABORH Type A Pos [facility] Blood 05/18/2022 1:37 PM EST 05/18/2022 1:48 PM EST Narrative Resulting Agency Comment Spec In Lab Gilmer Foster MD BLOOD BANK LAB O SMITH Performing Organization Address [facility] Co de Phone Number [facility] [address] * (ABNORMAL) BLOOD GAS 2 ARTERIAL (05/18/2022 12:41 PM EST) pH, Arterial 7.34(L) 7.35 - 7.45 [facility] PCO2, Arterial 42 35 - 45 mmHg [facility] PO2, Arterial 290(H) 85 - 104 mmHg [facility] Bicarbonate, Arterial 22.2 20.0 - 26.0 mmol/L [facility] Base Excess, Arterial -3.5(L) -3.0 - 3.0 mmol/L [facility] Hgb Blood Gas 9.2(L) 13.7 - 16.5 g/dL [facility] Oxyhemoglobin, Arterial 98.5(H) 94.0 - 97.0 % [facility] Carboxyhemoglob in, Arterial 1.2 % [facility] Comment: Nonsmokers: 0.5-1.5% COHB Smokers: Variable, but usually less than 10% Toxic: 20-30% COHB Lethal: Greater than 60% COHB Methemoglobin, Arterial 0.3 <=1.5 % [facility] Na Whole Blood 133(L) 135 - 145 mmol/L [facility] K Whole Blood 4.2 3.5 - 5.0 mmol/L [facility] Comment: Please note: Patients with WBC >100,000 may have falsely elevated Potassium levels. Contact the Clinical Chemistry Laboratory if there are any questions. ICa Whole Blood 1.16 1.15 - 1.33 mmol/L [facility] Comment: Note: ??Total bilirubin higher than 20 mg/dL may lead to falsely low ionized calcium. CL Whole Blood 104 98 - 107 mmol/L [facility] Gluc Whole Bld 130 65 - 199 mg/dL [facility] Comment:Diabetes: >=200 mg/d L plus symptoms. Lactate WB 1.0 0.5 - 2.2 mmol/L [facility] FIO2 Art 50 % [facility] Flow Art 1.0 LPM [facility] PF Ratio Art 580 [facility] Blood 05/18/2022 12:4 1 PM EST 05/18/2022 12:41 PM EST Gilmer Foster MD POINT OF CARE TE ST ORDERABLES Performing Organization Address [facility] Co de Phone Number [facility] [address] * Specimen to Pathology (05/18/2022 11:21 AM EST) AP Specimen 05/18/2022 11:2 1 AM EST 05/18/2022 11:21 AM EST Narrative [facility] - 05/18/2022 11:21 AM EST Specimen requisition ordered. ??Separate Pathology report to follow Gilmer Foster MD PATHOLOGY/CYTOLO GY ORDERABLES Performing Organization Address [facility] [place] [address] * Specimen to Pathology (05/18/2022 10:56 AM EST) AP Specimen 05/18/2022 10:5 6 AM EST 05/18/2022 10:56 AM EST Narrative [facility] - 05/18/2022 10:56 AM EST Specimen requisition ordered. ??Separate Pathology report to follow Gilmer Foster MD PATHOLOGY/CYTOLO GY ORDERABLES Performing Organization Address [facility] Co de Phone Number [facility] [address] * Specimen to Pathology (05/18/2022 10:37 AM EST) AP Specimen 05/18/2022 10:3 7 AM EST 05/18/2022 10:37 AM EST Narrative [facility] - 05/18/2022 10:37 AM EST Specimen requisition ordered. ??Separate Pathology report to follow Gilmer Foster MD PATHOLOGY/CYTOLO GY ORDERABLES Performing Organization Address [facility] Co de Phone Number [facility] [address] * Specimen to Pathology (05/18/2022 10:36 AM EST) AP Specimen 05/18/2022 10:3 6 AM EST 05/18/2022 10:36 AM EST Narrative [facility] - 05/18/2022 10:36 AM EST Specimen requisition ordered. ??Separate Pathology report to follow Gilmer Foster MD PATHOLOGY/CYTOLO GY ORDERABLES Performing Organization Address [facility] Co de Phone Number [facility] [address] * Specimen to Pathology (05/18/2022 10:36 AM EST) AP Specimen 05/18/2022 10:3 6 AM EST 05/18/2022 10:36 AM EST Narrative [facility] - 05/18/2022 10:36 AM EST Specimen requisition ordered. ??Separate Pathology report to follow Gilmer Foster MD PATHOLOGY/CYTOLO GY ORDERABLES Performing Organization Address [facility] Co de Phone Number [facility] [address] * Anaerobic Culture (05/18/2022 10:35 AM EST) Anaerobic Culture No anaerobic organisms isolated [facility] Lung 05/18/2022 10:3 5 AM EST 05/18/2022 2:17 PM EST Comment:Left pleural grumous Narrative Resulting Agency Comment Spec In Lab Gilmer Foster MD MICROBIOLOGY - G ENERAL ORDERABLES Performing Organization Address City/[facility]/ZIP Co de Phone Number [facility] [address] * Tissue culture (05/18/2022 10:35 AM EST) Tissue Culture No growth [facility] Gram Stain Few Neutrophils seen No microorganisms seen. [facility] Lung 05/18/2022 10:3 5 AM EST 05/18/2022 2:17 PM EST Comment:Left pleural grumous Narrative Resulting Agency Comment Spec In Lab Gilmer Foster MD MICROBIOLOGY - G ENERAL ORDERABLES Performing Organization Address [facility] Co de Phone Number [facility] [address] * Surgical Pathology Report (05/18/2022 10:19 AM EST) Final Diagnosis [id number] ? Location: L3WD; 0326; B The signing pathologist has (i) examined the relevant preparation(s) for the specimen(s) and (ii) rendered or confirmed the diagnosis(es). . ?Surgical Pathology DIAGNOSIS A - Left pleural rind, excision: - Fibrinous and sclerotic pleural rind with associated ?chronic inflammation. - ??There is no evidence of malignancy. B - Left pleural grumous, excision: - Fibrinous and necrotic debris. - ??There is no evidence of malignancy. C - Visceral pleural rind, excision: - Sclerotic pleural rind. - ??There is no evidence of malignancy. D - Fragments of rib, excision: - Bone with maturing trilineage hematopoiesis. - ??There is no evidence of malignancy. E - Left PARIETAL pleural rind, excision: - Fibrinous and sclerotic pleural rind with associated ?chronic inflammation. - ??There is no evidence of malignancy. F - Left visceral pleural rind, excision: - Fibrinous and sclerotic pleural rind with associated ?chronic inflammation. - ??There is no evidence of malignancy. Electronically signed by: ?MD Stephan, Dov Soriano Verified: ??06/04/2022 14:52 ??Pathologist Performed at: ??-[facility] [place], [place] [address] Healthcare Advisory Services Manager: Maria Ines Marrufo MD, AP, ??CLIA Certificate: [id number] SPECIMEN(S) SUBMITTED A - Left pleural rind, excision ?? for frozen section (1) B - Left pleural grumous, excision (1) C - VISCERAL PLEURAL RIND. FROZEN, excision ?for frozen section (1) D - Fragments of rib, excision (1) E - Left PARIETAL pleural rind, excision (1) F - Left visceral pleural rind, excision (1) CLINICAL INFORMATION Fibrothorax SPECIMEN PROCESSING A - Labeled/Fixative: Left pleural rind, fresh for frozen section. Quantity/Size: Fragments, 4.5 x 2.6 x 1.5 cm. Tissue Description: Multiple fragments of emerson-white fibromembranous tissue and adipose tissue. . SPECIMEN PROCESSING Sections/Processin g: The following tissue is submitted for frozen section: A1. Linecasting Machine Keyboard Operator sections in 3 cassettes as follows: ?A1: ??Frozen section remnant ?A2-A3: ??[employer] Machine Keyboard Operator sections B - Labeled/Fixative: Left pleural grumous, fresh. Quantity/Size: Fragments, 7.0 x 5.0 x 1.0 cm in aggregate. Tissue Description: Multiple soft rubbery fragments of white tissue. Sections/Processin g: Linecasting Machine Keyboard Operator sections in 2 cassettes labeled B1-B2. C - Labeled/Fixative: Visceral pleural rind. Frozen, fresh for frozen section. Quantity/Size: Single, 2.7 x 1.9 x 0.2 cm. Tissue Description: Serrato-white membranous soft tissue. Sections/Processin g: The following tissue is submitted for frozen section: C1. [employer]casting Machine Keyboard Operator sections in 2 cassettes as follows: ?C1: ??Frozen section remnant ?C2: ??[employer]casting Machine Keyboard Operator sections D - Labeled/Fixative: Fragments of rib, fresh. Quantity/Size: Fragments, 9.0 x 9.0 x 2.0 cm in aggregate. Tissue Description: Multiple fragments of rib and surrounding connective tissue. Sections/Processin g: Blocks submitted for decalcification: D1. Linecasting Machine Keyboard Operator sections in 1 cassette labeled D1. E - Labeled/Fixative: Left parietal pleural rind, fresh. Quantity/Size: Fragments, 12.5 x 12.5 x 2.0 cm in aggregate. Tissue Description: Multiple fragments of firm rubbery serrato-white tissue with surrounding adipose tissue. Sections/Processin g: Linecasting Machine Keyboard Operator sections in 2 cassettes labeled E1-E2. F - Labeled/Fixative: Left visceral pleural rind, fresh. Quantity/Size: Fragments, 9.0 x 5.0 x 2.0 cm in aggregate. Tissue Description: Fragments of firm rubbery serrato-white tissue. Sections/Processin g: Linecasting Machine Keyboard Operator sections in 2 cassettes labeled F1-F2. ??jnk ?Frozen Section FROZEN SECTION DIAGNOSIS CFS - VISCERAL PLEURAL RIND. FROZEN, excision ?for frozen section Inflamed ??pleura, no evidence of malignancy (healthcare sales representative sample) 05/18/22 11:27 Electronically signed by: ?Malia Lacy MD Verified: ??05/18/2022 11:29 ??Pathologist Performed at: ??-[facility] [place], [place] [address] Healthcare Advisory Services Manager: Maria Ines Marrufo MD, AP, ??CLIA Certificate: [id number] This intraoperative consultation should be interpreted as a preliminary diagnosis pending review of the entire specimen and special studies, if any. A final Surgical Pathology report will follow this preliminary Frozen Section report(s). ?Frozen Section FROZEN SECTION DIAGNOSIS AFS - Left pleural rind, excision ?? for frozen section : Chronic pleuritis and fibrin, negative for malignancy . FROZEN SECTION DIAGNOSIS 05/18/22 11:20 Electronically signed by: ?Malia Lacy MD Verified: ??05/18/2022 11:25 ??Pathologist Performed at: ??-[facility] [place]ology, [place] [address] Healthcare Advisory Services Manager: Maria Ines Marrufo MD, AP, ??CLIA Certificate: [id number] This intraoperative consultation should be interpreted as a preliminary diagnosis pending review of the entire specimen and special studies, if any. A final Surgical Pathology report will follow this preliminary Frozen Section report(s). 06/04/2022 2:52 PM EDT [facility] Frozen Specimen 05/18/2022 1 0:19 AM EST 05/18/2022 10:19 AM EST Pleura 05/18/2022 10:1 9 AM EST 05/18/2022 10:19 AM EST Frozen Specimen 05/18/2022 1 0:19 AM EST 05/18/2022 10:19 AM EST BONE STRUCTURE / Unknown 05/18/2022 10:19 AM EST 05/18/2022 10:19 AM EST Pleura 05/18/2022 10:1 9 AM EST 05/18/2022 10:19 AM EST Pleura 05/18/2022 10:1 9 AM EST 05/18/2022 10:19 AM EST Gilmer Fosetr MD PATHOLOGY/CYTOLO GY ORDERABLES [facility] [address] [place] [address] * Specimen to Pathology (05/18/2022 10:19 AM EST) AP Specimen 05/18/2022 10:1 9 AM EST 05/18/2022 10:19 AM EST Narrative [facility] - 05/18/2022 10:19 AM EST Specimen requisition ordered. ??Separate Pathology report to follow Gilmer Foster MD PATHOLOGY/CYTOLO GY ORDERABLES [facility] [address] * (ABNORMAL) BLOOD GAS 2 ARTERIAL (05/18/2022 10:17 AM EST) pH, Arterial 7.36 7.35 - 7.45 [facility] PCO2, Arterial 42 35 - 45 mmHg [facility] PO2, Arterial 226(H) 85 - 104 mmHg [facility] Bicarbonate, Arterial 22.9 20.0 - 26.0 mmol/L [facility] Base Excess, Arterial -2.6 -3.0 - 3.0 mmol/L [facility] Hgb Blood Gas 9.5(L) 13.7 - 16.5 g/dL [facility] Oxyhemoglobin, Arterial 98.5(H) 94.0 - 97.0 % [facility] Carboxyhemoglob in, Arterial 1.0 % [facility] Comment: Nonsmokers: 0.5-1.5% COHB Smokers: Variable, but usually less than 10% Toxic: 20-30% COHB Lethal: Greater than 60% COHB Methemoglobin, Arterial 0.3 <=1.5 % [facility] Na Whole Blood 133(L) 135 - 145 mmol/L [facility] K Whole Blood 3.8 3.5 - 5.0 mmol/L [facility] Comment: Please note: Patients with WBC >100,000 may have falsely elevated Potassium levels. Contact the Clinical Chemistry Laboratory if there are any questions. ICa Whole Blood 1.18 1.15 - 1.33 mmol/L [facility] Comment: Note: ??Total bilirubin higher than 20 mg/dL may lead to falsely low ionized calcium. CL Whole Blood 104 98 - 107 mmol/L [facility] Gluc Whole Bld 107 65 - 199 mg/dL [facility] Comment:Diabetes: >=200 mg/d L plus symptoms. Lactate WB 1.5 0.5 - 2.2 mmol/L [facility] Blood 05/18/2022 10:1 7 AM EST 05/18/2022 10:17 AM EST Gilmer Foster MD POINT OF CARE TE ST ORDERABLES [facility] [address] * XR Fluoro No Rad <1Hr - OR Use (05/18/2022 9:16 AM EST) Narrative Dicom, Auditing User - 05/18/2022 9:17 AM EST This exam is auto-finalizing. No interpretation was done. Gilmer Foster MD IMG FLUORO ORDER PHILOMENA * EKG 12 Lead (05/18/2022 8:00 AM EST) Ventricular rate 115 BPM MUSE SYSTEM P-R Interval 176 ms MUSE SYSTEM QRS Duration 106 ms MUSE SYSTEM Q-T Interval 356 ms MUSE SYSTEM QTC Calculated (Bezet) 492 ms MUSE SYSTEM Calculated P [place] 106 degrees MUSE SYSTEM Calculated R [place] 71 degrees MUSE SYSTEM Calculated T [place] -169 degrees MUSE SYSTEM INTERPRETATION Atrial flutter Non-specific intra-ventricular conduction delay Minimal voltage criteria for LVH, may be normal variant ( Crane product ) Nonspecific ST and T wave abnormality Abnormal ECG When compared with ECG of 21-FEB-2022 06:21, No significant change was found I personally reviewed the tracing and edited the fellows interpretation Confirmed by fellow Rudi Guzmán ([id number]) on 05/21/2022 4:25:34 AM Confirmed by MD RUST SALVATORE ([id number]) on 05/21/2022 10:56:00 AM MUSE SYSTEM 05/18/2022 8:00 AM EST 05/21/2022 10:56 AM EDT Gilmer Foster MD ECG ORDERABLES MUSE SYSTEM * POCT Glucose (05/18/2022 7:29 AM EST) Glucose, POC 93 65 - 199 mg/dL [facility] Comment: Supplemental ranges: <140 mg/dL before meals <180 mg/dL all other times of the day Blood 05/18/2022 7:29 AM EST 05/18/2022 7:29 AM EST Gilmer Foster MD POINT OF CARE TE ST ORDERABLES [facility] [place] [address] documented in this encounter 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 Other postprocedural status Atrial fibrillation, unspecified type Tachycardia Tachycardia, unspecified Status post lung surgery Other postprocedural status Status post lung surgery Other postprocedural status documented in this encounter Admitting Diagnoses Diagnosis Fibrothorax Pleurisy without mention of effusion or current tuberculosis documented in this encounter Administered Medications Inactive Administered Medications - up to 3 most recent administrations Medication Order MAR Action Action Date Dose Rate Site acetaminophen (Tylenol) tablet 1,000 mg 1,000 mg, Oral, EVERY 6 HOURS SCHEDULED, First dose on Sat05/18/22 at 2000, Until Discontinued, Maximum dose of acetaminophen is 4000 mg from all sources in 24 hours. When ordered for pain, acetaminophen should be given even when other ordered pain medications are indicated., Recovery (Recovery-Hospital Unit), Routine Given 05/24/2022 12:01 PM EDT 1,000 mg Given 05/24/2022 5:45 AM EDT 1,000 mg Given 05/24/2022 12:30 AM EDT 1,000 mg acetaminophen (Tylenol) tablet 975 mg 975 mg, Oral, ONCE, 1 dose, On Sat05/18/22 at 0730, Maximum dose of acetaminophen is 4,000 mg from all sources in 24 hours. When ordered for pain, acetaminophen should be given even when other ordered pain medications are indicated. , Day of Surgery (Day of Procedure), Routine Given 05/18/2022 7:34 AM EST 975 mg albuteroL (Proventil, Ventolin) (2.5 mg/3 mL) (0.083 %) nebulizer solution 2.5 mg 2.5 mg, Nebulization, EVERY 6 HOURS, First dose on Sat05/18/22 at 2000, Until Discontinued, Routine Given 05/24/2022 12:01 PM EDT 2.5 mg Given 05/24/2022 5:45 AM EDT 2.5 mg Given 05/24/2022 12:31 AM EDT 2.5 mg AMIOdarone (Paceron) tablet 200 mg 200 mg, Oral, DAILY, First dose on Sat05/19/22 at 0900, Until Discontinued, Routine Given 05/24/2022 9:01 AM EDT 200 mg Given 05/23/2022 10:14 AM EDT 200 mg Given 05/22/2022 9:38 AM EDT 200 mg buPROPion (Wellbutrin) tablet 150 mg 150 mg, Oral, DAILY, First dose on Sat05/19/22 at 0900, Until Discontinued, Routine Given 05/24/2022 9:01 AM EDT 150 mg Given 05/23/2022 10:14 AM EDT 150 mg Given 05/22/2022 9:38 AM EDT 150 mg docusate sodium (Colace) capsule 100 mg 100 mg, Oral, 3 TIMES DAILY, First dose on Sat05/18/22 at 2100, Until Discontinued, Routine Given 05/24/2022 9:01 AM EDT 100 mg Given 05/23/2022 9:32 PM EDT 100 mg Given 05/23/2022 5:05 PM EDT 100 mg fentaNYL (PF) (50 mcg/mL) injection 12.5-50 mcg 12.5-50 mcg, Intravenous, EVERY 1 MIN PRN, Starting on Sat05/18/22 at 0626, Until Sat05/18/22 at 0917, Pain, for epidural placement only, Start dose 25 mcg (Reduce dose to 12.5 mcg if history of sedation sensitivity). Titration dose: 12.5-50 mcg IV (based on patient response) Intravenous (IV), every 3 minutes to maintain procedural pain less than 2 per pain scale. Maximum dose 50mcg per dose, 250mcg/hour., Routine Given 05/18/2022 9:01 AM EST 50 mcg Given 05/18/2022 8:47 AM EST 50 mcg furosemide (Lasix) (10 mg/mL) injection 20 mg 20 mg, Intravenous, ONCE, 1 dose, On Sat05/22/22 at 0815 Given 05/22/2022 7:50 AM EDT 20 mg heparin (porcine) (5,000 units/1 mL) subcutaneous injection 5,000 Units 5,000 Units, Subcutaneous, INFORMATION SYSTEMS SUPERVISOR TO O.R., 1 dose, On Sat05/18/22 at 0700, May be given without time restriction AFTER placement of an epidural. If administered prior to epidural placement WAIT 6 hours before [address] the epidural., Day of Surgery (Day of Procedure), STAT Given 05/18/2022 9:16 AM EST 5,000 Units Left Arm heparin (porcine) (5,000 units/1 mL) subcutaneous injection 5,000 Units 5,000 Units, Subcutaneous, EVERY 8 HOURS SCHEDULED, First dose on Sat05/18/22 at 2200, Until Discontinued, Routine Given 05/22/2022 5:55 AM EDT 5,000 Units Given 05/21/2022 9:00 PM EDT 5,000 Units Given 05/21/2022 1:03 PM EDT 5,000 Units heparin (porcine) (5,000 units/1 mL) subcutaneous injection 5,000 Units 5,000 Units, Subcutaneous, EVERY 8 HOURS SCHEDULED, 2 doses, First dose (after last modification) on Sat05/22/22 at 1400, Last dose on Sat05/22/22 at 2200, Routine Given 05/22/2022 9:42 PM EDT 5,000 Units Given 05/22/2022 2:03 PM EDT 5,000 Units heparin (porcine) (5,000 units/1 mL) subcutaneous injection 5,000 Units 5,000 Units, Subcutaneous, EVERY 8 HOURS SCHEDULED, 2 doses, First dose (after last modification) on Sat05/23/22 at 1400, Last dose on Sat05/23/22 at 2200, Routine Given 05/23/2022 9:32 PM EDT 5,000 Units Given 05/23/2022 1:09 PM EDT 5,000 Units HYDROmorphone (Dilaudid) (2 mg/mL) injection solution 0.2 mg 0.2 mg, Epidural, ONCE, 1 dose, On Sat05/18/22 at 0645, Routine Given 05/18/2022 9:16 AM EST 0.2 mg HYDROmorphone (pf) (10 mcg/mL), BUpivacaine (pf) 0.1% in sodium chloride 0.9% 250 mL epidural Epidural, Epidural Type: Continuous + PCEA, Continuous Rate: 3 mL/hr, PCEA Dose: 3 mL, PCEA Frequency: Every 20 minutes, Maximum rate for continuous infusion is 16 mL per hour Maximum intermittent bolus is 15 mL Maximum total dose is 30 mL per hour Continuous = basal rate for epidural infusion PCEA (Patient Controlled Epidural Analgesia) = bolus from infusion delivered after patient presses demand button PIEB (Programmed Intermittent Epidural Bolus) = bolus from infusion delivered on a programmed frequency , Recovery (Recovery-Hospital Unit) New Bag 05/18/2022 3:15 PM EST HYDROmorphone (pf) (10 mcg/mL), BUpivacaine (pf) 0.1% in sodium chloride 0.9% 250 mL epidural Epidural, Epidural Type: Continuous + PCEA, Continuous Rate: 6 mL/hr, PCEA Dose: 3 mL, PCEA Frequency: Every 20 minutes, Maximum rate for continuous infusion is 16 mL per hour Maximum intermittent bolus is 15 mL Maximum total dose is 30 mL per hour Continuous = basal rate for epidural infusion PCEA (Patient Controlled Epidural Analgesia) = bolus from infusion delivered after patient presses demand button PIEB (Programmed Intermittent Epidural Bolus) = bolus from infusion delivered on a programmed frequency , Recovery (Recovery-Hospital Unit) New Bag 05/19/2022 7:18 AM EST 250 mLs Bag 05/18/2022 5:00 PM EST 6 mL/hr HYDROmorphone (pf) (10 mcg/mL), BUpivacaine (pf) 0.1% in sodium chloride 0.9% 250 mL epidural Epidural, Epidural Type: Continuous + PCEA, Continuous Rate: 3 mL/hr, PCEA Dose: 3 mL, PCEA Frequency: Every 20 minutes, Maximum rate for continuous infusion is 16 mL per hour Maximum intermittent bolus is 15 mL Maximum total dose is 30 mL per hour Continuous = basal rate for epidural infusion PCEA (Patient Controlled Epidural Analgesia) = bolus from infusion delivered after patient presses demand button PIEB (Programmed Intermittent Epidural Bolus) = bolus from infusion delivered on a programmed frequency , Recovery (Recovery-Hospital Unit) New Bag 05/23/2022 9:29 PM EDT 250 mLs 05/20/2022 11:33 PM EDT 250 mLs Rate/Dose Change 05/20/2022 10:00 AM EDT HYDROmorphone (pf) (10 mcg/mL), BUpivacaine (pf) 0.1% in sodium chloride 0.9% 250 mL epidural Epidural, Epidural Type: PCEA Only, PCEA Dose: 3 mL, PCEA Frequency: Every 20 minutes, Maximum rate for continuous infusion is 16 mL per hour Maximum intermittent bolus is 15 mL Maximum total dose is 30 mL per hour Continuous = basal rate for epidural infusion PCEA (Patient Controlled Epidural Analgesia) = bolus from infusion delivered after patient presses demand button PIEB (Programmed Intermittent Epidural Bolus) = bolus from infusion delivered on a programmed frequency , Recovery (Recovery-Hospital Unit) Continued Bag 05/24/2022 7:37 AM EDT 2 50 mLs hydrOXYchloroQUINE (Plaquenil) tablet 200 mg 200 mg, Oral, DAILY, First dose on 05/19/22 at 0900, Until Discontinued, Routine Given 05/24/2022 9:02 AM EDT 200 mg Given 05/23/2022 10:14 AM EDT 200 mg Given 05/22/2022 9:38 AM EDT 200 mg ibuprofen (Advil) tablet 600 mg 600 mg, Oral, EVERY 6 HOURS PRN, Starting on Stephanie 05/24/22 at 0902, Until Stephanie 05/24/22 at 1701, Pain, Administer orally with milk or food to minimize GI irritation. Maximum dose of 3,200 mg from all sources in 24 hours, Routine lactated Ringers 250 mL IV bolus Intravenous, ONCE, 1 dose, On 05/19/22 at 1630 New Bag 05/19/2022 4:30 PM EST lactated ringers infusion 1,000 mL, at 100 mL/hr, Intravenous, CONTINUOUS, Starting on Sat05/18/22 at 1430, Until Sat05/21/22 at 0722, Recovery (Recovery-Hospital Unit) New Bag 05/20/2022 2:13 PM EDT 1,000 mLs 100 mL/hr New Bag 05/20/2022 6:30 AM EDT 1,000 mLs 100 mL/hr Rate/Dose Verify 05/20/2022 5:00 AM EDT 100 mL/ hr lidocaine (Glydo) 2 % gel 6 mL 6 mL, INTRA-URETHRAL, ONCE, 1 dose, On Sat05/21/22 at 0200, 11 mL for intra-urethral use only, Routine Given 05/21/2022 1:30 AM EDT 6 mLs metoprolol succinate XL (Toprol-XL) tablet 25 mg 25 mg, Oral, DAILY, First dose on Sat05/19/22 at 0900, Until Discontinued, Hold for systolic BP < 90, Routine Given 05/20/2022 9:22 AM EDT 25 mg metoproloL tartrate (Lopressor) tablet 25 mg 25 mg, Oral, EVERY 12 HOURS SCHEDULED (2 times per day), First dose on Sat05/21/22 at 0915, Until Discontinued, Routine Given 05/24/2022 9:01 AM EDT 25 mg Given 05/23/2022 9:32 PM EDT 25 mg Given 05/23/2022 10:14 AM EDT 25 mg midazolam (pf) (Versed) (1 mg/mL) injection 0.5-2 mg 0.5-2 mg, Intravenous, EVERY 1 MIN PRN, Starting on Sat05/18/22 at 0626, Until Sat05/18/22 at 0917, epidural placement only, Start dose 1 mg (Reduce dose to 0.5 mg if history of sedation sensitivity). Titration dose: 0.5 mg-2 mg IV (based on patient response) Intravenous (IV), every 3 minutes PRN to obtain RASS score of -2. Maximum dose 2 mg per dose, 10 mg/hour., Routine Given 05/18/2022 9:01 AM EST 1 mg Given 05/18/2022 8:47 AM EST 2 mg ondansetron (pf) (Zofran) (2 mg/mL) injection 4 mg 4 mg, Intravenous, EVERY 8 HOURS PRN, Starting on 05/19/22 at 1149, Until Stephanie 05/24/22 at 1701, Nausea Given 05/22/2022 7:44 AM EDT 4 mg Given 05/20/2022 11:50 AM EDT 4 mg oxyCODONE (Roxicodone) tablet 5 mg 5 mg, Oral, EVERY 6 HOURS PRN, Starting on Stephanie 05/24/22 at 0902, Until Stephanie 05/24/22 at 1701, Pain, Routine potassium chloride ER (Klor-Con M) tablet 20 mEq 20 mEq, Oral, ONCE, 1 dose, On Sat05/22/22 at 0815, 20 mEq tablet may be dissolved in water for administration, Routine Given 05/22/2022 9:38 AM EDT 20 mEq prochlorperazine (Compazine) (5 mg/mL) injection 10 mg 10 mg, Intravenous, EVERY 6 HOURS PRN, Starting on Sat05/22/22 at 1345, Until Stephanie 05/24/22 at 1701, Nausea, Routine Given 05/22/2022 2:03 PM EDT 10 mg prochlorperazine (Compazine) (5 mg/mL) injection 5 mg 5 mg, Intravenous, ONCE PRN, 1 dose, Starting on 05/19/22 at 0500, Until 05/19/22 at 0512, Nausea, Routine Given 05/19/2022 5:12 AM EST 5 mg prochlorperazine (Compazine) (5 mg/mL) injection 5 mg 5 mg, Intravenous, ONCE PRN, 1 dose, Starting on 05/20/22 at 1850, Until 05/20/22 at 1956, Nausea, Routine Given 05/20/2022 7:56 PM EDT 5 mg senna (Senokot) tablet 17.2 mg 17.2 mg, Oral, EVERY EVENING, First dose on 05/19/22 at 1700, Until Discontinued, Routine Given 05/23/2022 5:05 PM EDT 17.2 mg Given 05/20/2022 6:25 PM EDT 17.2 mg sodium chloride 0.9 % (flush) (BD PosiFlush Normal Saline 0.9) flush 5 mL 5 mL, Intravenous, 2 TIMES DAILY, First dose on Sat05/18/22 at 2100, Until Discontinued, Recovery (Recovery-Hospital Unit), Routine Given 05/24/2022 9:08 AM EDT 5 mLs Given 05/23/2022 9:34 PM EDT 5 mLs Given 05/23/2022 10:14 AM EDT 5 mLs tamsulosin (Flomax) capsule 0.4 mg 0.4 mg, Oral, DAILY, First dose on 05/19/22 at 0900, Until Discontinued, DO NOT CRUSH OR OPEN, Routine Given 05/24/2022 9:02 AM EDT 0.4 mg Given 05/23/2022 10:14 AM EDT 0.4 mg Given 05/22/2022 9:38 AM EDT 0.4 mg tiotropium bromide (Spiriva Respimat) 2.5 mcg/actuation inhaler 2 puff 2 puff, Inhalation, DAILY, First dose on Sat05/18/22 at 2000, Until Discontinued, Must be primed prior to first administration, Routine Given 05/24/2022 9:07 AM EDT 2 puffs Given 05/23/2022 10:14 AM EDT 2 puffs Given 05/22/2022 9:38 AM EDT 2 puffs documented in this encounter Active and Recently Administered Medications Times are shown in EDT. Scheduled Medication Order 05/22/2022 05/23/2022 05/24/2022 acetaminophen (Tylenol) tablet 1,000 mg 1,000 mg, Oral, EVERY 6 HOURS SCHEDULED, First dose on Sat05/18/22 at 2000, Until Discontinued, Maximum dose of acetaminophen is 4000 mg from all sources in 24 hours. When ordered for pain, acetaminophen should be given even when other ordered pain medications are indicated., Recovery (Recovery-Hospital Unit), Routine 0554 (Given - Provider: Devorah Rivera RN)1156 (Not Given - Provider: Maribell Farias RN - Reason: Patient/family refused)1758 (Given - Provider: Maribell Farias RN) 0000 (Not Given - Provider: Sandro Newton RN - Reason: Patient/family refused)0557 (Given - Provider: Sandro Newton RN)1310 (Given - Provider: Maribell Farias RN)1705 (Given - Provider: Maribell Farias RN) 0030 (Given - Provider: Raquel Hoffmann)0545 (Given - Provider: Raquel Hoffmann)1201 (Given - Provider: Cori Motta RN) albuteroL (Proventil, Ventolin) (2.5 mg/3 mL) (0.083 %) nebulizer solution 2.5 mg 2.5 mg, Nebulization, EVERY 6 HOURS, First dose on Sat05/18/22 at 2000, Until Discontinued, Routine 0200 (Not Given - Provider: Devorah Rivera RN - Reason: Patient/family refused)0750 (Given - Provider: Maribell Farias RN)1403 (Given - Provider: Maribell Farias RN)2142 (Given - Provider: Sandro Newton RN) 0557 (Given - Provider: Sandro Newton RN)1309 (Given - Provider: Maribell Farias RN)1706 (Given - Provider: Maribell Farias RN) 0031 (Given - Provider: Raquel Hoffmann)0545 (Given - Provider: Raquel Hoffmann)1201 (Given - Provider: Cori Motta RN) AMIOdarone (Paceron) tablet 200 mg 200 mg, Oral, DAILY, First dose on Sat05/19/22 at 0900, Until Discontinued, Routine 0938 (Given - Provider: Maribell Farias RN) 1014 (Given - Provider: Maribell Farias RN) 0901 (Given - Provider: Cori Motta RN) buPROPion (Wellbutrin) tablet 150 mg 150 mg, Oral, DAILY, First dose on Sat05/19/22 at 0900, Until Discontinued, Routine 0938 (Given - Provider: Maribell Farias RN) 1014 (Given - Provider: Maribell Farias RN) 0901 (Given - Provider: Cori Motta RN) docusate sodium (Colace) capsule 100 mg 100 mg, Oral, 3 TIMES DAILY, First dose on Sat05/18/22 at 2100, Until Discontinued, Routine 0938 (Given - Provider: Maribell Farias RN)1403 (Given - Provider: Maribell Farias RN)2142 (Given - Provider: Sandro Newton RN) 1014 (Given - Provider: Maribell Farias RN)1705 (Given - Provider: Maribell Farias RN)2132 (Given - Provider: Raquel Hoffmann) 0901 (Given - Provider: Cori Motta RN)1500 (Due) furosemide (Lasix) (10 mg/mL) injection 20 mg (COMPLETED) 20 mg, Intravenous, ONCE, 1 dose, On Sat05/22/22 at 0815 0750 (Given - Provider: Maribell Farias RN) heparin (porcine) (5,000 units/1 mL) subcutaneous injection 5,000 Units (CANCELED) 5,000 Units, Subcutaneous, EVERY 8 HOURS SCHEDULED, First dose on Sat05/18/22 at 2200, Until Discontinued, Routine 0555 (Given - Provider: Devorah Rivera RN) heparin (porcine) (5,000 units/1 mL) subcutaneous injection 5,000 Units (COMPLETED) 5,000 Units, Subcutaneous, EVERY 8 HOURS SCHEDULED, 2 doses, First dose (after last modification) on Sat05/22/22 at 1400, Last dose on Sat05/22/22 at 2200, Routine 1403 (Given - Provider: Maribell Farias RN)2141 (Given - Provider: Sandro Newton RN) heparin (porcine) (5,000 units/1 mL) subcutaneous injection 5,000 Units (COMPLETED) 5,000 Units, Subcutaneous, EVERY 8 HOURS SCHEDULED, 2 doses, First dose (after last modification) on Sat05/23/22 at 1400, Last dose on Sat05/23/22 at 2200, Routine 1309 (Given - Provider: Maribell Farias RN)2131 (Given - Provider: Raquel Hoffmann) hydrOXYchloroQUINE (Plaquenil) tablet 200 mg 200 mg, Oral, DAILY, First dose on Sat05/19/22 at 0900, Until Discontinued, Routine 0938 (Given - Provider: Maribell Farias RN) 1014 (Given - Provider: Maribell Farias RN) 0902 (Given - Provider: Cori Motta RN) metoproloL tartrate (Lopressor) tablet 25 mg 25 mg, Oral, EVERY 12 HOURS SCHEDULED (2 times per day), First dose on Sat05/21/22 at 0915, Until Discontinued, Routine 0938 (Given - Provider: Maribell Farias RN)2142 (Given - Provider: Sandro Newton RN) 101 (Given - Provider: Maribell Farias RN)2131 (Given - Provider: Raquel Hoffmann) 0901 (Given - Provider: Cori Motta RN) potassium chloride ER (Klor-Con M) tablet 20 mEq (COMPLETED) 20 mEq, Oral, ONCE, 1 dose, On Sat05/22/22 at 0815, 20 mEq tablet may be dissolved in water for administration, Routine 0938 (Given - Provider: Maribell Farias RN) senna (Senokot) tablet 17.2 mg 17.2 mg, Oral, EVERY EVENING, First dose on Sat05/19/22 at 1700, Until Discontinued, Routine 1747 (Not Given - Provider: Maribell Farias RN - Reason: Patient/family refused) 1705 (Given - Provider: Maribell Farias RN) sodium chloride 0.9 % (flush) (BD PosiFlush Normal Saline 0.9) flush 5 mL 5 mL, Intravenous, 2 TIMES DAILY, First dose on Sat05/18/22 at 2100, Until Discontinued, Recovery (Recovery-Hospital Unit), Routine 0939 (Given - Provider: Maribell Farias RN)2144 (Given - Provider: Sandro Newton, CHRISTINA) 101 (Given - Provider: Maribell Farias, CHRISTINA)2133 (Given - Provider: Raquel Hoffmann) 0908 (Given - Provider: Cori Motta, RN) tamsulosin (Flomax) capsule 0.4 mg 0.4 mg, Oral, DAILY, First dose on Sat05/19/22 at 0900, Until Discontinued, DO NOT CRUSH OR OPEN, Routine 0938 (Given - Provider: Maribell Farias RN) 101 (Given - Provider: Maribell Farias RN) 09 (Given - Provider: Cori Motta, CHRISTINA) tiotropium bromide (Spiriva Respimat) 2.5 mcg/actuation inhaler 2 puff 2 puff, Inhalation, DAILY, First dose on Sat05/18/22 at 2000, Until Discontinued, Must be primed prior to first administration, Routine 0938 (Given - Provider: Maribell Farias RN) 101 (Given - Provider: Maribell Farias RN) 0907 (Given - Provider: Cori Motta, CHRISTINA) Continuous Medication Order 05/22/2022 05/23/2022 05/24/2022 HYDROmorphone (pf) (10 mcg/mL), BUpivacaine (pf) 0.1% in sodium chloride 0.9% 250 mL epidural (CANCELED) Epidural, Epidural Type: Continuous + PCEA, Continuous Rate: 3 mL/hr, PCEA Dose: 3 mL, PCEA Frequency: Every 20 minutes, Maximum rate for continuous infusion is 16 mL per hour Maximum intermittent bolus is 15 mL Maximum total dose is 30 mL per hour Continuous = basal rate for epidural infusion PCEA (Patient Controlled Epidural Analgesia) = bolus from infusion delivered after patient presses demand button PIEB (Programmed Intermittent Epidural Bolus) = bolus from infusion delivered on a programmed frequency , Recovery (Recovery-Hospital Unit) 2128 (New Bag - Provider: Sandro Newton RN) HYDROmorphone (pf) (10 mcg/mL), BUpivacaine (pf) 0.1% in sodium chloride 0.9% 250 mL epidural (CANCELED)(Linked Group 1) Epidural, Epidural Type: PCEA Only, PCEA Dose: 3 mL, PCEA Frequency: Every 20 minutes, Maximum rate for continuous infusion is 16 mL per hour Maximum intermittent bolus is 15 mL Maximum total dose is 30 mL per hour Continuous = basal rate for epidural infusion PCEA (Patient Controlled Epidural Analgesia) = bolus from infusion delivered after patient presses demand button PIEB (Programmed Intermittent Epidural Bolus) = bolus from infusion delivered on a programmed frequency , Recovery (Recovery-Hospital Unit) 0737 (Continued Bag - Provider: Cori Motta RN - Comment: d/c continuous PCEA only)0847 (Stopped - Provider: Kerry Orozco RN) PRN Medication Order 05/22/2022 05/23/2022 05/24/2022 ibuprofen (Advil) tablet 600 mg 600 mg, Oral, EVERY 6 HOURS PRN, Starting on Stephanie 05/24/22 at 0902, Until Stephanie 05/24/22 at 1701, Pain, Administer orally with milk or food to minimize GI irritation. Maximum dose of 3,200 mg from all sources in 24 hours, Routine lidocaine (Xylocaine) 1% (10 mg/mL) injection 3 mg 3 mg (0.3 mL), Subcutaneous, ONCE PRN, 1 dose, Starting on 05/18/22 at 1932, Until Stephanie 05/24/22 at 1701, for discomfort with PIV insertion, Recovery (Recovery-Hospital Unit), Routine ondansetron (pf) (Zofran) (2 mg/mL) injection 4 mg 4 mg, Intravenous, EVERY 8 HOURS PRN, Starting on 05/19/22 at 1149, Until Stephanie 05/24/22 at 1701, Nausea 0744 (Given - Provider: Maribell Farias RN) oxyCODONE (Roxicodone) tablet 5 mg 5 mg, Oral, EVERY 6 HOURS PRN, Starting on Stephanie 05/24/22 at 0902, Until Stephanie 05/24/22 at 1701, Pain, Routine prochlorperazine (Compazine) (5 mg/mL) injection 10 mg 10 mg, Intravenous, EVERY 6 HOURS PRN, Starting on 05/22/22 at 1345, Until Stephanie 05/24/22 at 1701, Nausea, Routine 1403 (Given - Provider: Maribell Farias RN) sodium chloride 0.9 % (flush) (BD PosiFlush Normal Saline 0.9) flush 5-20 mL 5-20 mL, Intravenous, EVERY 1 MIN PRN, Starting on Sat05/18/22 at 1932, Until Stephanie 05/24/22 at 1701, flush, Flush pertains to all indwelling lines. Flush per protocol found in the job aid using the link provided on this medication record., Recovery (Recovery-Hospital Unit), Routine Linked Groups Order Group 1: HYDROmorphone (pf) (10 mcg/mL), BUpivacaine (pf) 0.1% in sodium chloride 0.9% 250 mL epidural (CANCELED)Jump to med Epidural, Epidural Type: PCEA Only, PCEA Dose: 3 mL, PCEA Frequency: Every 20 minutes, Maximum rate for continuous infusion is 16 mL per hour Maximum intermittent bolus is 15 mL Maximum total dose is 30 mL per hour Continuous = basal rate for epidural infusion PCEA (Patient Controlled Epidural Analgesia) = bolus from infusion delivered after patient presses demand button PIEB (Programmed Intermittent Epidural Bolus) = bolus from infusion delivered on a programmed frequency , Recovery (Recovery[facility]Hospital Unit) And Neuraxial shift total and Settings verification (CANCELED) Epidural, 2 Times Daily- Neuraxial Shift Total, First dose (after last modification) on Stephanie 05/24/22 at 1800, Until Discontinued, Recovery (Recovery[facility]Hospital Unit) And Neuraxial (Epidural) bryan (CANCELED) Epidural, CONTINUOUS PRN, Starting on Stephanie 05/24/22 at 0657, Until Stephanie 05/24/22 at 0847, Recovery (Recovery-Hospital Unit) documented in this encounter Care Teams Decorating Supervisor Relationship Specialty Start Date End Date Tami Olivia [address] [place] [address] PCP - General Family Medicine 12/30/20 documented as of this encounter
--- OUTSIDE RECORDS SUMMARY | 2023-12-11 17:33 | XMS_ITS | Encounter Summary ---
Author Organization [facility] [address] [facility] [place] [address] Care Team Providers Care Burlap Man Name Role Phone Tami Olivia Primary Care Provider [phone] Reason for Visit * Reason Onset Date Comments Pre Procedure Call 11/06/2022 Encounter Details Date Type Department Care Team (Late st Contact Info) Description 11/06/2022 Telephone Cardiology at [address] [phone] Jacqueline Henry RN Pre Procedure Call Social History Tobacco Use Types Packs/Day Years [...] encounter Miscellaneous Notes * Telephone Encounter - Jacqueline Henry RN - 11/06/2022 12:42 PM EDTSummary: Pre Procedure Call: Cardioversion REECE RN CARDIOVERSION/DRUG LOAD CHECKLIST Patient Name: Rajan Marquez Patient Providers: Elizabet Otero / Sekou Canales Date Scheduled: 11/08/22 Arrival Time/ Case Time: 9:30 am lab work / 10:30 am appt / 12:30 pm CV Date Patient was Called: 11/06/22 Procedure: Cardioversion Med Instructions: Anticoag Type: Xarelto (rivaroxaban) - confirmed pt taking appropriately & no missed doses within past 21 days DM: N/A Coming from an assisted living facility?: No Special Considerations/Notes: Clear liquids (water, apple juice, luis joe, black coffee/tea) OK up until 2 hrs prior to procedure. NPO after midnight. 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 documented in this encounter Plan of Treatment Scheduled Procedures Name Priority Associated Diagnoses Date/Ti me ELECTROPHYSIOLOGY PROCEDURE Persistent atrial fibrillation CARDIOVERSION-ELECTIVE (WRVU 2) persistent atrial fibrillation TRANSESOPHAGEAL ECHOCARDIOGR AM (WRVU 2.3) persistent atrial fibrillation documented as of this encounter Visit Diagnoses Not on filedocumented in this encounter Care Teams Burlap Man Relationship Specialty Start Date End Date Tami Olivia [address] [place] [address] PCP - General Family Medicine 12/30/20 documented as of this encounter
--- OUTSIDE RECORDS SUMMARY | 2023-12-11 17:33 | XMS_ITS | Encounter Summary ---
Author Organization [facility] Address [facility] [place] [address] Care Team Providers Care News Video Editor Name Role Phone Tami Olivia Primary Care Provider [phone] Encounter Details Date Type Department Care Team (Late st Contact Info) Description 05/25/2022 Telephone Thoracic Surgery at [facility] [place] [phone] Megan Reza, RN Social History Tobacco Use Types Packs/Day Years [...] encounter Miscellaneous Notes * Telephone Encounter - Megan Reza, RN - 05/25/2022 2:46 PM EDTSummary: post op call Thoracic Surgery Nursing Post-operative Follow up: Hx: s/p Bronchoscopy, Left Thoracotomy, total decortication on 05/18/2022, discharged on 05/24/2022with sling to LUE, no heavy lifting 10 lbs, and ROM until FUV, restart XARELTO on Sat05/28/22. POD#: 7 General statement: I am doing ok. We had to change the dressing where that tube was because the dressing was soaked, but we put a dry gauze on it. I am using that sling on my left arm, and I am not lifting anything. Pain: taking extra strength tylenol 1000 mg every 6 hours scheduled and oxycodone 5 mg every 6 hours, if pain is not well controlled by tylenol. Reviewed that he should take his oxycodone on a full stomach to prevent some nausea. HE verbalized understanding. GI: appetite: good Diet: regular Hydration: good Voiding: without any difficulty BM: without any difficulty - LBM 05/24/22 - What is the Bowel regimen: will start taking colace - reviewed that will not go longer than 2 days between BM's, verbalized understanding and read back instructions. Respiratory: using IS as directed, pulling 1500 SOB: denies Difficulty breathing: denies Coughing with or without sputum: denies Oxygen needs: denies Activity: up and about without any difficulty, denies any dizziness or lightheadedness Integumentary: Incisions without any redness, swelling, drainage, fevers, chills, sweats, site hot to touch, bruising and bleeding. Dressings changed due to drainage. Has not showered yet will remove tomorrow , wash with soap and water rinse well and pat dry. Keep open to air, unless drainage noted then use just a dry gauze dressing. Plan: RTC on 06/11/2022 CXR 06/11/2022 Dr. Gutiérrez 06/11/2022 Rajan Marquez is aware of appointments and know to call with any changes, questions or concerns. Plan to call on Saturday05/28/2022. documented in this encounter Plan of Treatment Scheduled Procedures Name Priority Associated Diagnoses Date/Ti me ELECTROPHYSIOLOGY PROCEDURE Persistent atrial fibrillation CARDIOVERSION-ELECTIVE (WRVU 2) persistent atrial fibrillation TRANSESOPHAGEAL ECHOCARDIOGR AM (WRVU 2.3) persistent atrial fibrillation documented as of this encounter Visit Diagnoses Not on filedocumented in this encounter Care Teams News Video Editor Relationship Specialty Start Date End Date Tami Olivia [address] [place] [address] PCP - General Family Medicine 12/30/20 documented as of this encounter
--- OUTSIDE RECORDS SUMMARY | 2023-12-11 17:33 | XMS_ITS | Encounter Summary ---
Author Organization [facility] Address [facility] [place] [address] Care Team Providers Care Home Health Clinical Liaison Name Role Phone Tami Olivia Primary Care Provider [phone] Encounter Details Date Type Department Care Team (Late st Contact Info) Description 06/07/2022 Telephone Thoracic [facility] [place] [phone] Megan Reza, RN Social History Tobacco Use [...] Telephone Encounter - Megan Reza, RN - 06/07/2022 3:11 PM EDT TC to Mr. Marquez Hx:??s/p Bronchoscopy, Left Thoracotomy, total decortication on 05/18/2022, discharged on 05/24/2022 with sling to LUE, no heavy lifting 10 lbs, and ROM until FUV, restart XARELTO??on Sat05/28/22. Unable to reach Mr. Marquez, left a message requesting call back to discuss pain and need for oxycodone. Awaiting call back TC back from Mr. Jimmy Marquez is stating that he is doing well, but continues to have some difficulty at nighttime. He is only taking tylenol 1000 mg every 6 hours and has not tried ibuprofen 600 mg. Reviewed that he shall trial ibuprofen 600 mg together with the tylenol for the rest of the day today as he currently has oxycodone 5 mg , 3 tablets left and he is using them for bedtime. Will call tomorrow to see if he h as any relief with the ibuprofen. documented in this encounter Plan of Treatment Scheduled Procedures Name Priority Associated Diagnoses Date/Ti me ELECTROPHYSIOLOGY PROCEDURE Persistent atrial fibrillation CARDIOVERSION-ELECTIVE (WRVU 2) persistent atrial fibrillation TRANSESOPHAGEAL ECHOCARDIOGR AM (WRVU 2.3) persistent atrial fibrillation documented as of this encounter Visit Diagnoses Not on filedocumented in this encounter Care Teams Home Health Clinical Liaison Relationship Specialty Start Date End Date Tami Olivia [address] [place] [address] PCP - General Family Medicine 12/30/20 documented as of this encounter
--- OUTSIDE RECORDS SUMMARY | 2023-12-11 17:33 | XMS_ITS | Encounter Summary ---
Author Organization [facility] Address [facility] [place] [address] Care Team Providers Care Putty And Patch Worker Name Role Phone Tami Olivia Primary Care Provider [phone] Encounter Details Date Type Department Care Team (Late st Contact Info) Description 05/19/2022 11:59 PM EST Anesthesia Event Surgical Unit Level 3 [place] [phone] Caleb, Karri Sharp MD [facility] [place] [address] Anesthesia Record Procedure Summary Procedure Name Responsible Anesthesiologist Anesthesia Start Time Anesthesia Stop Time Acute Pain Medicine Service (consult) Events No events on file. Meds * Agents No agents on file. * Blood No blood administrations on file. Lines, Drains, and Airways No LDAs on file. documented in this encounter Social History Tobacco [...] on filedocumented in this encounter Care Teams Putty And Patch Worker Relationship Specialty Start Date End Date Tami Olivia [address] [place] [address] PCP - General Family Medicine 12/30/20 documented as of this encounter
--- OUTSIDE RECORDS SUMMARY | 2023-12-11 17:33 | XMS_ITS | Encounter Summary ---
Author Organization [facility] Address [facility] [place] [address] Care Team Providers Care Slots Manager Name Role Phone Tami Olivia Primary Care Provider [phone] Reason for Visit * Auth/Cert (Routine) Specialty Diagnoses / Procedures Referred By Bert t Referred To Contact Diagnoses Atrial flutter atrial flutter Procedures PRO CARDIOVERSION ELECTIVE ARRHYTHMIA EXTERNAL CARDIOVERSION-ELECTIVE (WRVU 2) Sekou Canales MD [facility] [place] [address] [facility] Referral ID Status Reason Start Date Expiration Date Visits Re quested Visits Authorized [id number] 1 1 Encounter Details Date Type Department Care Team (Latest Contact Info) Description 11/08/2022 11:41 AM EDT - 11/08/2022 2:06 PM EDT Hospital Encounter [place] [address] Sekou Canales MD [facility] [place] [address] Typical atrial flutter; Atrial fibrillation, unspecified type Discharge Disposition: Home Social History Tobacco Use Types Packs/Day Years Used Date Smoking Tobacco: Former Cigarettes Smokeless Tobacco: Never Comments:1 ppd for the past year Alcohol Use Standard Drinks/Week Comments Not Currently 0 (1 standard drink = 0.6 oz pur e alcohol) [facility] Inpatient Questions Answer Date Recorded Does [...] EDT Inhaled Oxygen Concentration - - Weight - - Height - - Body Mass Index - - documented in this encounter Discharge Instructions * Discharge Instructions* Brittney Austin RN - 11/08/2022 1:29 PM EDT Images from the original note were not included. CARDIOVERSION INFORMATION What are the risks of cardioversion? Cardioversion is a frequently performed procedure with a low risk of serious side effects. Serious complications occur in less than one out of a hundred patients. These complications include: A very slow heartbeat (bradycardia) A very fast heartbeat (tachycardia) Stroke Pneumonia You may have redness, burning, stinging, or itching on the skin where the pads were placed. If you go home and are uncomfortable, there are several ointments that you can purchase over the counter touse on your skin. For example: Anesthetic ointment, such as Lanacaine Hydrocortisone 1% (steroid) cream in the form of Cortaid or Kericort Some patients report that applying ice packs to the pad sites decreases the discomfort. Call the cardiologists who performed the test if you need a prescription for a stronger medication. What instructions should I follow for the next few days after the cardioversion? Activity: Rest after the procedure. You may be sleepy for several hours. Be careful on the stairs during the remainder of the day; you may be unsteady on your feet. Do not smoke at home if you are alone for 24 hours following your procedure. Do not drive, operate machinery, drink alcoholic beverages, or make important decisions for 24 hours. The medications may change your reaction time or judgment without your awareness. Diet: Follow your regular diet as tolerated. If nausea occurs, start with clear liquids, and progress slowly to your regular diet. Medications: Your heart medications may not be the same after your cardioversion. Check with your doctor about what medicines to take. Follow-up care: If you have return of the symptoms associated with your abnormal heartbeat, contact your doctor. If you need a stronger medicine to treat your skin where the adhesive pads were placed, call the signal apprentice contracts intern at . We will schedule a follow-up appointment with the signal apprentice here, or you will be scheduled to see your local doctor soon. Any specific instructions that apply to you will be given to you prior to discharge from the hospital. If you have any questions about this procedure, call the Cardiology Department at: Saturday through Saturday 8:00 a.m. to 4:30 p.m. documented in this encounter Medications at Time of Discharge Medication Sig Dispensed Refills Start Date End Date calcium carbonate-vitamin D3 600 mg-20 mcg (800 unit) Tablet Take 1 tablet by mouth daily. 03/29/2022 cyanocobalamin, Vitamin B-12, (Vitamin B-12) 1,000 mcg [...] Take 1 tablet by mouth daily. 11/01/2014 rivaroxaban (Xarelto) 20 mg Tablet Take 20 mg by mouth daily. 06/12/2023 metoprolol succinate XL (Toprol-XL) 25 mg Tablet Sustained Release 24 hr Take 100 mg by mouth daily. 12/12/2022 documented as of this encounter Progress Notes * Srini Zhang RN - 11/08/2022 1:02 PM EDT 1255 Pt arrived to SDP recovery via stretcher S/P cardio version. VSS stable, Pt sinus delfina with occasional SVBP's. Pt BP hypotensive, 85/57. Fluids increased by anesthesia. Will continue to monitorpatient. Will notify anesthesia if patient becomes more hypotensive. documented in this encounter H&P Notes * Elizabet Otero PA - 11/08/2022 11:53 AM EDT Patient Name: Rajan Marquez Patient Age: 71 y.o. Birthdate: 1950 Admit date: 11/08/2022 Attending Physician: Sekou Canales MD Please see Elizabet Otero' 11/08/22 clinic note. Patient is anticoagulated with Xarelto, has not missed any doses in at least 3 weeks. Consent signed. No contraindications to today's planned DCCV. AC: Xarelto 20mg nightly Rate control: Metoprolol succinate 100mg daily Rhythm control: Amiodarone 200mg daily STEVE Manley 11:54 AM 11/08/22 documented in this encounter Procedure Notes * Sekou Canales MD - 11/08/2022 12:46 PM EDTAssociated Order(s): CARDIOVERSION-OR Direct Current Cardioversion Procedure Note: Date of Procedure: 11/08/2022 Attending: Sekou Canales MD PA: none Indication: symptomatic, persistent atrial fibrillation Patient Active Problem List Diagnosis Fibrothorax Atrial flutter Pleural effusion Mass of upper lobe of left lung ADHD COPD (chronic obstructive pulmonary disease) Depression Lupus anticoagulant positive Palpitations Tobacco abuse Unspecified osteoarthritis, unspecified site The patient was brought to the procedure room in the fasting state with an intravenous line in place. A time-out was conducted just before the start of the procedure to verify the correct patient andprocedure, and relevant critical information, including allergies. Uninterrupted anticoagulation for the past 3 weeks was confirmed with the patient. After answering all of the patient's questions and assuring informed consent, and with the anesthesiology service assisting with sedation and airway management, the patient transiently was anesthetized. The electrode pads were placed in the following position: ([]) Right anterior, left scapular ([]) Left anterior, left scapular ([]) Right upper parasternal and apical ([X]) Other: AP The patient received #1 synchronized, biphasic discharge(s) at 200 Joules. NSR restored successfully: ([X]) Yes ([]) Yes, but with early relapse ([]) No Complications: The patient subsequently awoke with no memory of the cardioversion, and there were no apparent complications. Provider Instructions: A follow up 12-lead ECG will be obtained. Sekou Canales MD S Cardiac Electrophysiology 11/08/2022 12:47 PM documented in this encounter Miscellaneous Notes * Op Note - Sekou Canales MD - 11/08/2022 12:41 PM EDT Refer to procedure note documented in this encounter Plan of Treatment Scheduled Orders Name Type Priority Associated Diagnoses Orde r Schedule EKG 12 Lead ECG Routine Typical atrial flutter One Time for 1 Occurrences starting 11/08/2022 until 11/08/2022 Scheduled Procedures Name Priority Associated Diagnoses Date/Ti me ELECTROPHYSIOLOGY PROCEDURE Persistent atrial fibrillation CARDIOVERSION-ELECTIVE (WRVU 2) persistent atrial fibrillation TRANSESOPHAGEAL ECHOCARDIOGR AM (WRVU 2.3) persistent atrial fibrillation documented as of this encounter Procedures Procedure Name Priority Date/Time Associated Diagnosis Comments EKG 12-LEAD STAT 11/08/2022 1:18 PM EDT Atrial fibrillation, unspecified type CARDIOVERSION-OR Routine 11/08/2022 12:4 6 PM EDT Cardioversion Elective Arrhythmia External ([id number]) 11/08/2022 12:38 PM EDT atrial flutter documented in this encounter Results * EKG 12 Lead (11/08/2022 1:18 PM EDT) Ventricular rate 47 BPM MUSE SYSTEM Atrial Rate 47 BPM MUSE SYSTEM P-R Interval 210 ms MUSE SYSTEM QRS Duration 104 ms MUSE SYSTEM Q-T Interval 476 ms MUSE SYSTEM QTC Calculated (Bezet) 421 ms MUSE SYSTEM Calculated P [place] 71 degrees MUSE SYSTEM Calculated R [place] 91 degrees MUSE SYSTEM Calculated T [place] 59 degrees MUSE SYSTEM INTERPRETATION Sinus bradycardia with 1st degree A-V block with Premature atrial complexes Rightward axis Borderline ECG When compared with ECG of 08-NOV-2022 11:19, Sinus rhythm has replaced Atrial flutter Vent. rate has decreased BY ??42 BPM QT has shortened Confirmed by MD Bob, Sloan ([id number]) on 11/10/2022 3:59:25 PM MUSE SYSTEM 11/08/2022 1:18 PM EDT 11/10/2022 3:59 PM EDT Sekou Canales MD ECG ORDERABLES MUSE SYSTEM * CARDIOVERSION-OR (11/08/2022 12:46 PM EDT) Narrative Sekou Canales MD - 11/08/2022 12:46 PM EDT Sekou Canales MD ? 11/08/2022 12:47 PM Direct Current Cardioversion Procedure Note: Date of Procedure: 11/08/2022 Attending: Sekou Canales MD PA: none Indication: symptomatic, persistent atrial fibrillation Patient Active Problem List Diagnosis Fibrothorax Atrial flutter Pleural effusion Mass of upper lobe of left lung ADHD COPD (chronic obstructive pulmonary disease) Depression Lupus anticoagulant positive Palpitations Tobacco abuse Unspecified osteoarthritis, unspecified site The patient was brought to the procedure room in the fasting state with an intravenous line in place. A time-out was conducted just before the start of the procedure to verify the correct patient and procedure, and relevant critical information, including allergies. Uninterrupted anticoagulation for the past 3 weeks was confirmed with the patient. After answering all of the patient's questions and assuring informed consent, and with the anesthesiology service assisting with sedation and airway management, the patient transiently was anesthetized. The electrode pads were placed in the following position: ([]) Right anterior, left scapular ([]) Left anterior, left scapular ([]) Right upper parasternal and apical ([X]) Other: AP ? The patient received #1 synchronized, biphasic discharge(s) at 200 Joules. NSR restored successfully: ([X]) Yes ([]) Yes, but with early relapse ([]) No Complications: The patient subsequently awoke with no memory of the cardioversion, and there were no apparent complications. Provider Instructions: A follow up 12-lead ECG will be obtained. Sekou Canales MD [facility] Cardiac Electrophysiology 11/08/2022 12:47 PM Sekou Canales MD GENSURG ORDERS NO PO STOP PAIN QUESTION documented in this encounter Visit Diagnoses Diagnosis Typical atrial flutter Atrial flutter Atrial fibrillation, unspecified type documented in this encounter Administered Medications Inactive [...] 12:22 PM EDT 1,000 mLs 100 mL/hr documented in this encounter Active and Recently Administered Medications Times are shown in EDT. Continuous Medication Order 11/06/2022 11/07/2022 11/08/2022 lactated ringers infusion (CANCELED) 1,000 mL, at 100 mL/hr, Intravenous, CONTINUOUS, Starting on Stephanie 11/08/22 at 1230, Until Stephanie 11/08/22 at 1355, Day of Surgery (Day of Procedure) 1222 (New Bag - Prov ider: Shahram Self RN)1236 (Paused - Provider: Yosef Cantu CRNA - Comment: Switch to gravity)1237 (Restarted - Provider: Yosef Cantu CRNA)1246 (Anesthesia Volume Adjustment - Provider: Yosef Cantu CRNA) documented in this encounter Care Teams Slots Manager Relationship Specialty Start Date End Date Tami Olivia [address] [place] [address] PCP - General Family Medicine 12/30/20 documented as of this encounter
--- OUTSIDE RECORDS SUMMARY | 2023-12-11 17:33 | XMS_ITS | Encounter Summary ---
Author Organization [facility] Address [facility] [place] [address] Care Team Providers Care Slunk Skin Curer Name Role Phone Tami Olivia Primary Care Provider [phone] Reason for Visit * Reason Onset Date Comments Other 05/28/2022 Encounter Details Date Type Department Care Team (Late st Contact Info) Description 05/28/2022 Telephone Thoracic Surgery at [facility] [place] [phone] Megan Reza, RN Other Social History Tobacco Use Types Packs/Day Years [...] Miscellaneous Notes * Telephone Encounter - Megan Reza RN - 05/28/2022 2:24 PM EDTSummary: call to check in TC to Mr. Marquez Hx: s/p Bronchoscopy, Left Thoracotomy, total decortication on 05/18/2022, discharged on 05/24/2022with sling to LUE, no heavy lifting 10 lbs, and ROM until FUV, restart XARELTO on Sat05/28/22. Unable to reach Mr. Marquez, left a message on an identifiable voicemail requesting call back to checkin. Awaiting call back. TC to Mr. Jimmy Marquez is doing much better today. He was able to have a BM with colace. He removed all of his dressings and there is no redness, swelling, drainage. His nausea has subsided as well. He knows to call with any changes, questions or concerns. documented in this encounter Plan of Treatment Scheduled Procedures Name Priority Associated Diagnoses Date/Ti me ELECTROPHYSIOLOGY PROCEDURE Persistent atrial fibrillation CARDIOVERSION-ELECTIVE (WRVU 2) persistent atrial fibrillation TRANSESOPHAGEAL ECHOCARDIOGR AM (WRVU 2.3) persistent atrial fibrillation documented as of this encounter Visit Diagnoses Not on filedocumented in this encounter Care Teams Slunk Skin Curer Relationship Specialty Start Date End Date Tami Olivia [address] [place] [address] PCP - General Family Medicine 12/30/20 documented as of this encounter
--- OUTSIDE RECORDS SUMMARY | 2023-12-11 17:33 | XMS_ITS | Encounter Summary ---
Author Organization [facility] Address [facility] [address] [place] [id number] Care Team Providers Care Liner Assembler Name Role Phone Tami Olivia Primary Care Provider [phone] Reason for Visit * Auth/Cert (Routine) Specialty Diagnoses / Procedures Referred By Bert t Referred To Contact Diagnoses Atrial flutter atrial flutter Procedures PRO CARDIOVERSION ELECTIVE ARRHYTHMIA EXTERNAL CARDIOVERSION-ELECTIVE (WRVU 2) Sekou Canales MD [facility] [place] [address] [facility] Referral ID Status Reason Start Date Expiration Date Visits Re quested Visits Authorized [id number] 1 1 Encounter Details Date Type Department Care Team (Late st Contact Info) Description 11/08/2022 12:30 PM EDT - 11/08/2022 1:00 PM EDT Surgery [place] [address] Sekou Canales MD [facility] [place] [address] CARDIOVERSION-ELECTIVE (WRVU 2) Social History Tobacco Use Types Packs/Day Years Used Date Smoking Tobacco: Former Cigarettes Smokeless Tobacco: Never Comments:1 ppd for the past year Alcohol Use Standard Drinks/Week Comments Not Currently 0 (1 standard drink = 0.6 oz pur e alcohol) [facility] Inpatient Questions Answer Date Recorded Does Anyone [...] Sign Reading Time Taken Comments Blood Pressure 98/58 11/08/2022 1:00 PM EDT Pulse 51 11/08/2022 1:00 PM EDT Temperature 36.3 ??C (97.3 ??F) 11/08/2022 12:56 PM E DT Respiratory Rate 23 11/08/2022 1:00 PM EDT Oxygen Saturation 98% 11/08/2022 1:00 PM EDT Inhaled Oxygen Concentration - - [...] the adhesive pads were placed, call the java web application developer telephone coin box collector at . We will schedule a follow-up appointment with the java web application developer here, or you will be scheduled to [...] 1:02 PM EDT 1255 Pt arrived to [facility] recovery via stretcher S/P cardio version. VSS [...] MD [facility] Cardiac Electrophysiology 11/08/2022 12:47 PM documented in [...] Scheduled Procedures Name Priority Associated Diagnoses Date/Ti ms ELECTROPHYSIOLOGY PROCEDURE Persistent atrial fibrillation CARDIOVERSION-ELECTIVE (WRVU 2) persistent atrial fibrillation TRANSESOPHAGEAL ECHOCARDIOGR AM (WRVU 2.3) persistent atrial fibrillation documented as of this encounter Procedures Procedure Name Priority Date/Time Associated Diagnosis Comments EKG 12-LEAD STAT 11/08/2022 1:18 PM EDT Atrial fibrillation, unspecified type CARDIOVERSION-OR Routine 11/08/2022 12:4 6 PM EDT Cardioversion Elective Arrhythmia External (04109) 11/08/2022 12:38 PM EDT atrial flutter documented in this encounter Results * EKG 12 Lead (11/08/2022 1:18 PM EDT) Ventricular rate 47 BPM MUSE SYSTEM Atrial Rate 47 BPM MUSE SYSTEM P-R Interval 210 ms MUSE SYSTEM QRS Duration 104 ms MUSE SYSTEM Q-T Interval 476 ms MUSE SYSTEM QTC Calculated (Bezet) 421 ms MUSE SYSTEM Calculated P [place] 71 degrees MUSE SYSTEM Calculated R [place] 91 degrees MUSE SYSTEM Calculated T [place] 59 degrees MUSE SYSTEM INTERPRETATION Sinus bradycardia with 1st degree A-V block with Premature atrial complexes Rightward axis Borderline ECG When compared with ECG of 08-NOV-2022 11:19, Sinus rhythm has replaced Atrial flutter Vent. rate has decreased BY ??42 BPM QT has shortened Confirmed by MD Rojas David ([id number]) on 11/10/2022 3:59:25 PM MUSE SYSTEM 11/08/2022 [...] MD S Cardiac Electrophysiology 11/08/2022 12:47 PM Sekou Canales MD GENSURG ORDERS NO PO STOP PAIN QUESTION documented in this encounter Visit Diagnoses Not on filedocumented [...] CRNA) documented in this encounter Care Teams Liner Assembler Relationship Specialty Start Date End Date Tami Olivia [address] [place] [address] PCP - General Family Medicine 12/30/20 documented as of this encounter
--- OUTSIDE RECORDS SUMMARY | 2023-12-11 17:33 | XMS_ITS | Encounter Summary ---
Author [facility] [place] [address] Care Team Providers Care Room Cooler Installer Name Role Phone Tami Olivia Primary Care Provider Encounter Details Date Type Department Care Team (Late st Contact Info) Description 06/08/2022 Telephone [place] [phone] Megan Reza RN Social History Tobacco Use Types Packs/Day [...] on filedocumented in this encounter Care Teams Room Cooler Installer Relationship Specialty Start Date End Date Tami Olivia [address] [place] [address] PCP - General Family Medicine 12/30/20 documented as of this encounter
--- OUTSIDE RECORDS SUMMARY | 2023-12-11 17:33 | XMS_ITS | Encounter Summary ---
Author Organization [facility] Address [facility] [place] [address] Care Team Providers Care Magnet Placer Name Role Phone Tami Olivia Primary Care Provider Encounter Details Date Type Department Care Team (Latest Contact Info) Description 06/11/2022 2:15 PM EDT - 06/11/2022 11:59 PM EDT Hospital Encounter XRay at [address] [place] [place] [address] [facility] [place] [address] Status post lung surgery Discharge Disposition: Home [...] on file documented as of this encounter Medications at Time of Discharge [...] Take 1 tablet by mouth daily. 11/01/2014 oxyCODONE (Roxicodone) 5 mg tablet Take 1 tablet by mouth every 6 hours as needed for Pain. 30 tablet 05/24/2022 11/07/2022 rivaroxaban (Xarelto) 20 mg Tablet Take 20 mg by mouth daily. 06/12/2023 metoprolol succinate XL (Toprol-XL) 25 mg Tablet Sustained Release 24 hr Take 100 mg by mouth daily. 12/12/2022 documented as of this encounter Plan of Treatment Scheduled Procedures Name Priority Associated Diagnoses Date/Ti me ELECTROPHYSIOLOGY PROCEDURE Persistent atrial fibrillation CARDIOVERSION-ELECTIVE (WRVU 2) persistent atrial fibrillation TRANSESOPHAGEAL ECHOCARDIOGR AM (WRVU 2.3) persistent atrial fibrillation documented as of this encounter Procedures Procedure Name Priority Date/Time Associated Diagnosis Comments XR CHEST PA AND LATERAL Routine 06/11/2022 2:23 PM EDT Status post lung surgery documented in this encounter Results * XR [...] who have questions please contact the health healthcare business analyst that requested your imaging first. ? Narrative 06/11/2022 4:12 PM EDT EXAMINATION: XR [...] patients who have questions please contactthe health healthcare business analyst that requested your imaging first. Gilmer Gutiérrez MD IMG DX ORDERABLE S documented in this encounter Visit Diagnoses Diagnosis Status post lung surgery Other postprocedural status documented in this encounter Care Teams Magnet Placer Relationship Specialty Start Date End Date Tami Olivia [address] [place] [address] PCP - General Family Medicine 12/30/20 documented as of this encounter
--- OUTSIDE RECORDS SUMMARY | 2023-12-11 17:33 | XMS_ITS | Encounter Summary ---
Author Organization [facility] [place] [address] Care Team Providers Care Maxillofacial Pathology Name Role Phone Tami Olivia Primary Care Provider [phone] Encounter Details Date Type Department Care Team (Late st Contact Info) Description 08/17/[address] [facility] [place] [phone] Annabella Gustafson RT Social History Tobacco Use Types Packs/Day Years [...] encounter Miscellaneous Notes * Telephone Encounter - Annabella Gustafson RT - 08/17/2022 10:13 AM EDT I called Rajan Marquez and informed him we received a referral for Pulmonary Rehabilitation at [facility]. I inquired about his familiarity with Pulmonary Rehabilitation. He stated they aren't familiar. I informed him Pulmonary Rehabilitation occurs two-three days per week consisting of exercise and education with a goal of decreasing shortness of breath and increasing strength and endurance. He stated he just started having PT come to his home two-three days per week. And anticipates the visit with continue for two weeks. I inquired about his interest in me inquiring about his interest in pulmonary rehab after completion of PT. He was in agreement with this plan. RT Jennifer documented in this encounter Plan of Treatment Scheduled Procedures Name Priority Associated Diagnoses Date/Ti me ELECTROPHYSIOLOGY PROCEDURE Persistent atrial fibrillation CARDIOVERSION-ELECTIVE (WRVU 2) persistent atrial fibrillation TRANSESOPHAGEAL ECHOCARDIOGR AM (WRVU 2.3) persistent atrial fibrillation documented as of this encounter Visit Diagnoses Not on filedocumented in this encounter Care Teams Maxillofacial Pathology Relationship Specialty Start Date End Date Tami Olivia [address] [place] [address] PCP - General Family Medicine 12/30/20 documented as of this encounter
--- OUTSIDE RECORDS SUMMARY | 2023-12-11 17:33 | XMS_ITS | Encounter Summary ---
Author Organization [facility] Address [facility] [place] [address] Care Team Providers Care Damper Worker Name Role Phone Tami Olivia Primary Care Provider [phone] Encounter Details Date Type Department Care Team (Late st Contact Info) Description 05/18/2022 Interpretation Only Radiology [address] [facility] [address] Unknown None Social History Tobacco Use Types Packs/Day Years [...] Procedure Name Priority Date/Time Associated Diagnosis Comments DH OR ENDOSCOPY Routine 05/18/2022 documented in this encounter Results * DH OR Endoscopy (05/18/2022) Anatomical Region Laterality Modality Other 05/18/2022 Narrative 05/18/2022 12:00 AM EST Photographs - Images Procedure Note Unknown - 05/21/2022 Photographs - Images Unknown EA IMAGES documented in this encounter Visit Diagnoses Not on filedocumented in this encounter Care Teams Damper Worker Relationship Specialty Start Date End Date Tami Olivia [address] [place] [address] PCP - General Family Medicine 12/30/20 documented as of this encounter
--- OUTSIDE RECORDS SUMMARY | 2023-12-11 17:33 | XMS_ITS | Encounter Summary ---
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 Pleural effusion Procedures CT Chest w Contrast Gilmer Gutiérrez MD [facility] [place] [address] [facility] [place] [address] Referral ID Status Reason Start Date Expiration Date Visits Requested Visits Authorized [id number] New Request Specialty Service Requested 06/12/2022 12/12/2023 1 1 Encounter Details Date Type Department Care Team (Late st Contact Info) Description 06/11/2022 3:45 PM EDT Office [place] [address] Gilmer Gutiérrez MD [facility] [place] [address] 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; Status post lobectomy of lung; Pleural effusion Social History Tobacco Use Types Packs/Day Years [...] Sign Reading Time Taken Comments Blood Pressure 132/90 06/11/2022 3:02 PM EDT Pulse 122 06/11/2022 3:02 PM EDT Temperature 36.5 ??C (97.7 ??F) 06/11/2022 3:02 PM ED T Respiratory Rate 20 06/11/2022 3:02 PM EDT Oxygen Saturation 98% 06/11/2022 3:02 PM EDT Inhaled Oxygen Concentration - - Weight 70.6 kg (155 lb 10.3 oz) 06/11/2022 3:02 PM EDT Height 172.7 cm (5' 7.99) 06/11/2022 3:02 PM ED T Body Mass Index 23.67 06/11/2022 3:02 PM EDT documented in this encounter Patient Instructions * Patient Instructions* Megan Reza RN - 06/11/2022 3:45 PM EDT Thank you for visiting Dr. Gutiérrez in clinic 06/11/22 Dr. Gutiérrez would like to see you back in clinic in July [address] scan of your chestwith IV contrast. You will receive a letter in the mail/ receive a call to schedule this appointment. Exercise each day for 30 minutes or longer. Daily aerobic exercise for at least 30 minutes will help improve your endurance and improve the breathing capacity of your lungs. This means that you are breathing hard, your heart is beating fast and that you are sweating. Examples of this include walking, biking, swimming, and using a treadmill or stationary bike. Please call Thoracic surgery at with any questions or concerns. documented in this encounter Progress Notes * Gilmer Gutiérrez MD - 06/11/2022 3:45 PM EDT Thoracic surgery Hospital check Chief complaint: Follow-up left thoracotomy and decortication History of present illness: Mr. Marquez is a 71-year-old man who underwent thoracoscopic left upper lobectomy on March 19, 2021 but subsequently developed a loculated pleural effusion. Pleural biopsieson February 08 demonstrated a benign inflammatory process with trapped lung. Ultimately on May 18 we performed a left thoracotomy and total pulmonary decortication. This was a long, difficult operation characterized by the presence of trapped lung and a very thick visceral and parietal pleural rind. He was ultimately discharged home on postoperative day 6 and comes in today for scheduled follow-up. His postoperative pain is largely resolved although he has a persistent area of discomfort and numbness at his incision site. His breathing is modestly improved from preoperative status, although his activity level remains somewhat limited. Overall he is happy with his progress. He denies any infectious symptoms. Current Outpatient Medications on File Prior to Visit Medication Sig Dispense Refill ??? oxyCODONE (Roxicodone) 5 mg tablet Take 1 tablet by mouth every 6 hours as needed for Pain. 30 tablet 0 ??? AMIOdarone (Paceron) 200 mg Tablet Take [...] Take 25 mg by mouth daily. ??? sildenafiL (VIAGRA) 50 mg Tablet TAKE 1/2 TO 1 TABLET BY MOUTH 30 MINUTES PRIOR TO SEXUAL ACTIVITY NEEDED. MAXIMUM DAILY DOSE 2 ??? UNABLE TO FIND Cbd gummies to help with smoking cessation. ??? bupropion HCl (WELLBUTRIN ORAL) Take 150 mg by mouth daily. ??? tamsulosin (Flomax) 0.4 mg Capsule Take 0.4 mg by mouth daily. ??? hydrOXYchloroQUINE (Plaquenil) 200 mg Tablet Take 200 mg by mouth Daily. ??? albuterol sulfate (Proair Digihaler) 90 mcg/actuation aero powdr breath act w/sensor 4 times daily as needed. ??? cholecalciferol, Vitamin D3, (Vitamin D3) 1,000 unit Tablet Take 1 tablet by mouth daily. No current facility-administered medications on file prior to visit. BP 132/90 (BP Location (NBP): Left arm) Pulse (!) 122 Temp 36.5 ??C (97.7 ??F) (Temporal) Resp 20 Ht 172.7 cm (5' 7.99) Wt 70.6 kg (155 lb 10.3 oz) SpO2 98% BMI 23.67 kg/m?? Physical exam: He appears comfortable. His breathing is not obviously labored. He is alert, oriented and in no distress. His lungs are clear with diminished breath sounds at the left base, and his thoracotomy incision is healing well. Imaging: A PA and lateral chest radiograph today demonstrated a persistent loculated pleural effusion, smaller than his preoperative imaging Pathology: I reviewed the patient's pathology results with him. 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 I advised him that continued physical exercise was critical to his ongoing recovery and recommended referral to pulmonary rehab. We will continue oncologic surveillance and he will therefore return for a chest CT in about 3 months. 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 Status post lobectomy of lung Pleural effusion Expected: 07/09/2022 (Approximate), Expires: 12/12/2023 Scheduled Procedures Name Priority Associated Diagnoses Date/Ti me ELECTROPHYSIOLOGY PROCEDURE Persistent atrial fibrillation CARDIOVERSION-ELECTIVE (WRVU 2) persistent atrial fibrillation TRANSESOPHAGEAL ECHOCARDIOGR AM (WRVU 2.3) persistent atrial fibrillation documented as of this encounter Visit Diagnoses Diagnosis 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
--- OUTSIDE RECORDS SUMMARY | 2023-12-11 17:33 | XMS_ITS | Encounter Summary ---
Author Organization [facility] Address [facility] [place] [address] Care Team Providers Care Power Generation Plant Operator Name Role Phone Tami Olivia Primary Care Provider [phone] Reason for Visit * Reason Onset Date Comments Appointment 08/22/2022 CT Encounter Details Date Type Department Care Team (Late st Contact Info) Description 08/22/2022 Telephone [facility] [place] [phone] Ramon Schneider, RN Appointment (CT) Social History Tobacco Use Types Packs/Day Years [...] encounter Miscellaneous Notes * Telephone Encounter - Ramon Schneider RN - 08/22/2022 4:09 PM EDT Spoke to patient and discussed scheduling his CT imaging and follow-up appointment. Patient was provided the contact number to thoracic surgery and then transferred to schedule these appointments. documented in this encounter Plan of Treatment Scheduled Procedures Name Priority Associated Diagnoses Date/Ti vt ELECTROPHYSIOLOGY PROCEDURE Persistent atrial fibrillation CARDIOVERSION-ELECTIVE (WRVU 2) persistent atrial fibrillation TRANSESOPHAGEAL ECHOCARDIOGR AM (WRVU 2.3) persistent atrial fibrillation documented as of this encounter Visit Diagnoses Not on filedocumented in this encounter Care Teams Power Generation Plant Operator Relationship Specialty Start Date End Date Tami Olivia [address] [place] [address] PCP - General Family Medicine 12/30/20 documented as of this encounter
--- OUTSIDE RECORDS SUMMARY | 2023-12-11 17:33 | XMS_ITS | Encounter Summary ---
Author Organization [facility] Address [facility] [place] [address] Care Team Providers Care Recruiting Operations Consultant Name Role Phone Tami Olivia Primary Care Provider [phone] Encounter Details Date Type Department Care Team (Latest Contact Info) Description 06/11/2022 Travel Social History Tobacco Use Types Packs/Day [...] on filedocumented in this encounter Care Teams Recruiting Operations Consultant Relationship Specialty Start Date End Date Tami Olivia [address] [place] [address] PCP - General Family Medicine 12/30/20 documented as of this encounter
--- OUTSIDE RECORDS SUMMARY | 2023-12-11 17:33 | XMS_ITS | Encounter Summary ---
Author Organization [facility] [place] [address] Care Team Providers Care Hide Sorter Name Role Phone Tami Olivia Primary Care Provider [phone] Reason for Referral * Consultation (Routine) - Closed Specialty Diagnoses / Procedures Referred By Contact Referred To Contact Electrophysiology / Cardiology Diagnoses Atrial flutter, unspecified type AFL, on Amio but HR not controlled. Discuss AFL ablation Basilia Joseph MD [address] [place], [place] [id number] [place] [address] Cardiology 1 [place] [address] Referral ID Status Reason Start Date Expiration Date V isits Requested Visits Authorized [id number] Closed Consult, Test & Treat PCP Updated and/or Approved 06/26/2022 06/26/2023 1 1 Encounter Details Date Type Department Care Team (Latest Contact Info) Description 06/26/2022 Transcribe Orders eDH Incoming Referrals [phone] Basilia Joseph MD Atrial flutter, unspecified type Social History Tobacco Use Types Packs/Day Years [...] Scheduled Referrals Name Type Priority Associated Diagnoses Order Schedule Referral to Cardiac Electrophysiology Outpatient Referral Routine Atrial flutter, unspecified type Ordered: 06/26/2022 documented as of this encounter Visit Diagnoses Diagnosis Atrial flutter, unspecified type documented in this encounter Care Teams Hide Sorter Relationship Specialty Start Date End Date Tami Olivia [address] [place] [address] PCP - General Family Medicine 12/30/20 documented as of this encounter
--- OUTSIDE RECORDS SUMMARY | 2023-12-11 17:34 | XMS_ITS | Encounter Summary ---
Author Organization [facility] Address [facility] [place] [address] Care Team Providers Care Copy Technician Name Role Phone Tami Olivia Primary Care Provider [phone] Reason for Visit * Reason Onset Date Comments Post Procedure Call 02/26/2022 Encounter Details Date Type Department Care Team (Late st Contact Info) Description 02/26/2022 Telephone [place] [phone] Megan Reza, RN Post Procedure Call Social History Tobacco Use Types [...] Telephone Encounter - Megan Reza, RN - 02/26/2022 10:31 AM ESTSummary: post op call Thoracic Surgery Nursing Post-operative Follow up: Hx: s/p L VATS Pleura biopsy 02/08/2022, air leak, Xarelto for afib, readmission for malfunctioning mini-atrium and a-fib with RVR on Cardiology service and s/p chest tube removal on 02/19/2022, discharged on 02/20/2022. Unable to reach Mr. Marquez, left a message on identifiable voicemail requesting a call back. Awaitingcall back. TC to Mr. Jimmy Marquez is sore but doing ok. He feels achy more at nighttime. Denies any SOB, difficulty breathing. Notes some cough with very little production. HR was 123 this am while sitting in a chair. I lost my appetite but I am drinking liquids without any difficulty. He has not removed his dressings, but reviewed at length to remove the dressing, get in the shower wash with soap and water rinse well and pat dry. Keep open to air. He verbalized understanding and read back instructions. He denies anyfevers, or chills, redness, swelling or drainage. He is not using his IS and reviewed that he needsto start using this 10 breaths every hour he is awake. I will try. He knows to call with any questions or concerns. documented in this encounter Plan of Treatment Scheduled Procedures Name Priority Associated Diagnoses Date/Ti me ELECTROPHYSIOLOGY PROCEDURE Persistent atrial fibrillation CARDIOVERSION-ELECTIVE (WRVU 2) persistent atrial fibrillation TRANSESOPHAGEAL ECHOCARDIOGR AM (WRVU 2.3) persistent atrial fibrillation documented as of this encounter Visit Diagnoses Not on filedocumented in this encounter Care Teams Copy Technician Relationship Specialty Start Date End Date Tami Olivia [address] [place] [address] PCP - General Family Medicine 12/30/20 documented as of this encounter
--- OUTSIDE RECORDS SUMMARY | 2023-12-11 17:34 | XMS_ITS | Encounter Summary ---
Author Organization [facility] Address [facility] [place] [address] Care Team Providers Care Resource Efficiency Manager Name Role Phone Tami Olivia Primary Care Provider [phone] Encounter Details Date Type Department Care Team (Late st Contact Info) Description 02/22/2022 Telephone Thoracic Surgery at [facility] [place] [phone] Megan Reza, RN Social History Tobacco Use [...] Telephone Encounter - Megan Reza, RN - 02/22/2022 3:45 PM EST Thoracic Surgery Nursing Post-operative Follow up: Hx: s/p L VATS Pleura biopsy 02/08/2022, air leak, Xarelto for afib, readmission for malfunctioning mini-atrium and a-fib with RVR on Cardiology service and s/p chest tube removal on 02/19/2022, discharged on 02/20/2022. Unable to reach Mr. Marquez, left a message requesting call back to check in. Will call tomorrow. documented in this encounter Plan of Treatment Scheduled Procedures Name Priority Associated Diagnoses Date/Ti me ELECTROPHYSIOLOGY PROCEDURE Persistent atrial fibrillation CARDIOVERSION-ELECTIVE (WRVU 2) persistent atrial fibrillation TRANSESOPHAGEAL ECHOCARDIOGR AM (WRVU 2.3) persistent atrial fibrillation documented as of this encounter Visit Diagnoses Not on filedocumented in this encounter Care Teams Resource Efficiency Manager Relationship Specialty Start Date End Date Tami Olivia [address] [place] [address] PCP - General Family Medicine 12/30/20 documented as of this encounter
--- OUTSIDE RECORDS SUMMARY | 2023-12-11 17:34 | XMS_ITS | Encounter Summary ---
Author Organization [facility] Address [facility] [place] [address] Care Team Providers Care Coffee Shop Attendant Name Role Phone Tami Olivia Primary Care Provider [phone] Encounter Details Date Type Department Care Team (Latest Contact Info) Description 04/16/2022 Travel Social History Tobacco Use Types Packs/Day [...] on filedocumented in this encounter Care Teams Coffee Shop Attendant Relationship Specialty Start Date End Date Tami Olivia [address] [place] [address] PCP - General Family Medicine 12/30/20 documented as of this encounter
--- OUTSIDE RECORDS SUMMARY | 2023-12-11 17:34 | XMS_ITS | Encounter Summary ---
Author Organization [facility] Address [facility] [place] [address] Care Team Providers Care Skip Locator Name Role Phone AldairKarleeTami Primary Care Provider [phone] Encounter Details Date Type Department Care Team (Latest Contact Info) Description 03/06/2022 11:37 AM EST - 03/06/2022 11:59 PM [facility] Hospital Encounter XRay at [address] [place] [address] Squamous cell carcinoma of left lung Discharge Disposition: Home Social History Tobacco Use [...] Sig Dispensed Refills Start Date End Date AMIOdarone (Paceron) 200 mg Tablet Take 1 [...] Take 100 mg by mouth daily. 12/12/2022 omeprazole (PriLOSEC) 20 mg Capsule, Delayed Release(E.C.) Take 20 mg by mouth daily. 03/12/2018 05/17/2022 documented as of this encounter Plan of Treatment Scheduled Procedures Name Priority Associated Diagnoses Date/Ti me ELECTROPHYSIOLOGY PROCEDURE Persistent atrial fibrillation CARDIOVERSION-ELECTIVE (WRVU 2) persistent atrial fibrillation TRANSESOPHAGEAL ECHOCARDIOGR AM (WRVU 2.3) persistent atrial fibrillation documented as of this encounter Procedures Procedure Name Priority Date/Time Associated Diagnosis Comments XR CHEST PA AND LATERAL Routine 03/06/2022 11:47 AM EST Squamous cell carcinoma of left lung documented in this encounter Results * XR Chest PA & Lateral (Generic) (03/06/2022 11:47 AM EST) Anatomical Region Laterality Modality Chest N/A Digital Radiogra phy Impressions 03/06/2022 2:27 PM EST Loculated left-sided hydropneumothorax. The air component has increased. Loculated left-sided pleural effusion. New small right pleural effusion. Thank you for letting us participate in the care of this patient. ??If you are a health care provider and have any questions regarding this report, please contact the number below. ??For patients who have questions please contact the health child care leader that requested your imaging first. ? Narrative 03/06/2022 2:27 PM EST EXAMINATION: XR CHEST PA AND LATERAL (GENERIC) CLINICAL HISTORY: s/p left VATS pleural biopsy ?interval change TECHNIQUE: PA and lateral views of the chest COMPARISON: February 20, 2022 FINDINGS: There is overall volume loss in the left hemithorax which is unchanged. A loculated hydropneumothorax is present in the superior portion of the left hemithorax. The size of the component of air has increased. Also present is pleural fluid with a loculated component in the lower aspect of the left hemithorax. There is new slight blunting of the posterior right costophrenic angle. The heart size is normal. Procedure Note Marcus Edwards MD - 03/06/2022 EXAMINATION: XR CHEST PA AND LATERAL (GENERIC) CLINICAL HISTORY: s/p left VATS pleural biopsy ?interval change TECHNIQUE: PA and lateral views of the chest COMPARISON: February 20, 2022 FINDINGS: There is overall volume loss in the left hemithorax which is unchanged.A loculated hydropneumothorax is present in the superior portion of theleft hemithorax. The size of the component of air has increased. Also presentis pleural fluid with a loculated component in the lower aspect of the left hemithorax. There is new slight blunting of the posterior right costophrenic angle. The heart size is normal. IMPRESSION Loculated left-sided hydropneumothorax. The air component has increased. Loculated left-sided pleural effusion. New small right pleural effusion. Thank you for letting us participate in the care of this patient. If youare a health care provider and have any questions regarding this report,please contact the number below. For patients who have questions please contactthe health child care leader that requested your imaging first. Gilmer Gutiérrez MD IMG DX ORDERABLE S documented in this encounter Visit Diagnoses Diagnosis Squamous cell carcinoma of left lung documented in this encounter Care Teams Skip Locator Relationship Specialty Start Date End Date AldairKarleeTami [address] [place] [address] PCP - General Family Medicine 12/30/20 documented as of this encounter
--- OUTSIDE RECORDS SUMMARY | 2023-12-11 17:34 | XMS_ITS | Encounter Summary ---
Author Organization [facility] Address [facility] [place] [address] Care Team Providers Care Brand Engineer Name Role Phone Tami Olivia Primary Care Provider [phone] Reason for Referral * Diagnostic Test (Routine) - Closed Specialty Diagnoses / Procedures Referred By Bert gautam Referred To Contact Radiology Diagnoses Pleural effusion 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 Procedures CT Chest w Contrast Gilmer Gutiérrez MD [facility] [place] [address] [facility] [place] [address] Referral ID Status Reason Start Date Expiration Date V isits Requested Visits Authorized [id number] Closed Specialty Service Requested 03/06/2022 09/05/2023 1 1 Reason for Visit * Reason Comments Follow-up Encounter Details Date Type Department Care Team (Late st Contact Info) Description 03/06/2022 1:00 PM EST Office [place] [address] Gilmer Gutiérrez MD [facility] [place] [address] Pleural effusion; Squamous cell carcinoma of left lung; Status post lobectomy of lung Social History Tobacco Use Types Packs/Day Years [...] Sign Reading Time Taken Comments Blood Pressure 109/74 03/06/2022 12:25 PM EST Pulse 121 03/06/2022 12:25 PM EST Temperature 36.1 ??C (97 ??F) 03/06/2022 12:25 PM EST Respiratory Rate 17 03/06/2022 12:25 PM EST Oxygen Saturation 98% 03/06/2022 12:25 PM EST Inhaled Oxygen Concentration - - Weight 72 kg (158 lb 11.7 oz) 03/06/2022 12:25 P M EST Height 173.3 cm (5' 8.23) 03/06/2022 12:[address] Body Mass Index 23.97 03/06/2022 12:25 PM EST documented in this encounter Patient Instructions * Patient Instructions* Megan Reza RN - 03/06/2022 1:00 PM EST Thank you for visiting Dr. Gutiérrez in clinic 03/06/22 Dr. Gutiérrez would like to see you back in clinic in 4 weeks with a recent CT scan of your chest with IV contrast. You will receive a letter [...] Progress Notes * Gilmer Gutiérrez MD - 03/06/2022 1:00 PM EST Thoracic surgery follow-up visit Chief complaint: Follow-up left pleural effusion, pleural biopsy History of present illness: Mr. Marquez is a 71-year-old man who underwent thoracoscopic left upper lobectomy on March 29, 2021. He developed a recurrent left pleural effusion and on February 08 we obtained a series of pleural biopsies. He had a thick fibrinous rind encasing the left lung. He was disc harged on February 10, but readmitted February 19 to with tachycardia. His chest tube was removedduring this admission and he comes in for follow-up. He continues to experience exertional dyspnea but denies any fevers, chills, chest pain or other concerns Current Outpatient Medications on File Prior to Visit Medication Sig Dispense Refill ??? AMIOdarone (Paceron) [...] ACTIVITY NEEDED. MAXIMUM DAILY DOSE 2 ??? bupropion HCl (WELLBUTRIN ORAL) Take 150 mg by mouth daily. ??? tamsulosin (Flomax) 0.4 mg Capsule Take 0.4 mg by mouth daily. ??? hydrOXYchloroQUINE (Plaquenil) 200 mg Tablet Take 200 mg by mouth Daily. ??? cholecalciferol, Vitamin D3, (Vitamin D3) 1,000 unit Tablet Take 1 tablet by mouth daily. ??? [DISCONTINUED] AMIOdarone (Paceron) 200 mg Tablet Take 2 tablets by mouth 2 times daily for 5 days, THEN 2 tablets daily for 7 days. 34 tablet 0 ??? UNABLE TO FIND Cbd gummies to help with smoking cessation. ??? omeprazole (PriLOSEC) 20 mg Capsule, Delayed Release(E.C.) Take 20 mg by mouth daily. ??? albuterol sulfate (Proair Digihaler) 90 mcg/actuation aero powdr breath act w/sensor 4 times daily as needed. No current facility-administered medications on file prior to visit. BP 109/74 (Patient Position: Sitting) Pulse (!) 121 Temp 36.1 ??C (97 ??F) (Temporal) Resp 17 Ht 173.3 cm (5' 8.23) Wt 72 kg (158 lb 11.7 oz) SpO2 98% BMI 23.97 kg/m?? Imaging: I reviewed with the patient his chest CT dated March 06. This demonstrates a persistentloculated left hydropneumothorax Pathology: I reviewed with the patient his pathology results dated February 08. These demonstrated granulation tissue with mesothelial cells and necrosis without evidence of malignancy Assessment: 71-year-old man with a recurrent left pleural effusion almost 1 year after thoracoscopic left upper lobectomy. I advised him that no clear evidence of malignancy was present and that the most likely explanation for these findings were the sequelae of a previous lung infection. We discussed the fact that his lung was trapped by relatively dense pleural material and that thoracoscopic decortication was unlikely to improve his breathing further. We discussed the options of continuing efforts at improving his conditioning with left thoracotomy and total pulmonary decortication. I recommended he continue to work on exercise for the next 3 to 4 weeks and return in 4 weeks for an IV con trast chest CT. Plan: Return to clinic in 4 weeks for IV contrast chest CT, continue conditioning and pulmonary toilet GILMER GUTIÉRREZ MD documented in this encounter Plan of Treatment Scheduled Procedures Name Priority Associated Diagnoses Date/Ti me ELECTROPHYSIOLOGY PROCEDURE Persistent atrial fibrillation CARDIOVERSION-ELECTIVE (WRVU 2) persistent atrial fibrillation TRANSESOPHAGEAL ECHOCARDIOGR AM (WRVU 2.3) persistent atrial fibrillation documented as of this encounter Results * CT Chest w Contrast (04/16/2022 3:33 PM EST) Anatomical Region Laterality Modality Chest Computed Tomogra phy Impressions 04/16/2022 7:31 PM EST 1. ??Ex vacuo left hydropneumothorax trapped in thickened left pleural rind. 2. ??New right lung geographic groundglass opacities may reflect evolving infectious or inflammatory process. Thank you for letting us participate in the care of this patient. ??If you are a health care provider and have any questions regarding this report, please contact the number below. ??For patients who have questions please contact the health animal care provider that requested your imaging first. ? Electronically signed by: Maryann Magallanes MD, [facility] ([phone]), at 04/16/2022 7:31 PM Narrative 04/16/2022 7:31 PM EST EXAMINATION: CT CHEST W CONTRAST CLINICAL HISTORY: Pleural effusion hx of LULobectomy on 03/29/2021 for Squamous Cell Carcinoma, now s/p L VATS pleural biopsy on 02/08/22, please eval for changes, effusions, other findings TECHNIQUE: Helical CT of the chest after the intravenous administration of contrast, Administered 60.0 ml of OMNIPAQUE 350.00 mg/ml. Thin-section reconstructions as well as coronal and sagittal reformatted images were generated. COMPARISON: January 29, 2022 FINDINGS: Pulmonary parenchyma: Status post left upper lobectomy. Scarring and architectural distortion in the residual left lower lobe. Geographic scattered new groundglass opacities in the right lung. Airways: No central endobronchial abnormality. Pleura: Thickened left pleural rind with chronic left pleural effusion and extra vacuo left apical hydropneumothorax and scattered air bubbles likely representing trapped air-fluid level following chest tube removal. Lymph nodes: Small mediastinal and axillary lymph nodes persist. Heart and vasculature: Normal size of the heart. No significant pericardial effusion. Normal caliber of the thoracic aorta. Other mediastinal structures: Stable leftward shift. Upper abdomen: Stable hyperplastic enlargement of both adrenal glands. Skeletal structures: No significant findings. Procedure Note Maryann Magallanes MD - 04/16/2022 EXAMINATION: CT CHEST W CONTRAST CLINICAL HISTORY: Pleural effusion hx of LULobectomy on 03/29/2021 for Squamous Cell Carcinoma, now s/p LVATS pleural biopsy on 02/08/22, please eval for changes, effusions, otherfindings TECHNIQUE: Helical CT of the chest after the intravenous administrationof contrast, Administered 60.0 ml of OMNIPAQUE 350.00 mg/ml. Thin-section reconstructions as well as coronal and sagittal reformatted images were generated. COMPARISON: January 29, 2022 FINDINGS: Pulmonary parenchyma: Status post left upper lobectomy. Scarring and architectural distortion in the residual left lower lobe. Geographicscattered new groundglass opacities in the right lung. Airways: No central endobronchial abnormality. Pleura: Thickened left pleural rind with chronic left pleural effusion andextra vacuo left apical hydropneumothorax and scattered air bubbles likely representing trapped air-fluid level following chest tube removal. Lymph nodes: Small mediastinal and axillary lymph nodes persist. Heart and vasculature: Normal size of the heart. No significantpericardial effusion. Normal caliber of the thoracic aorta. Other mediastinal structures: Stable leftward shift. Upper abdomen: Stable hyperplastic enlargement of both adrenal glands. Skeletal structures: No significant findings. IMPRESSION 1. Ex vacuo left hydropneumothorax trapped in thickened left pleuralrind. 2. New right lung geographic groundglass opacities may reflect evolving infectious or inflammatory process. Thank you for letting us participate in the care of this patient. If youare a health care provider and have any questions regarding this report,please contact the number below. For patients who have questions please contactthe health animal care provider that requested your imaging first. Gilmer Gutiérrez MD IMG CT ORDERABLE S documented in this encounter Visit Diagnoses Diagnosis Pleural effusion Unspecified pleural effusion 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 Other postprocedural status Pleural effusion Unspecified pleural effusion 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 Other postprocedural status documented in this encounter Care Teams Brand Engineer Relationship Specialty Start Date End Date Tami Olivia [address] [place] [address] PCP - General Family Medicine 12/30/20 documented as of this encounter
--- OUTSIDE RECORDS SUMMARY | 2023-12-11 17:34 | XMS_ITS | Encounter Summary ---
Author Organization [facility] Address [facility] [place] [address] Care Team Providers Care Technology Infusion Specialist Name Role Phone Tami Olivia Primary Care Provider [phone] Encounter Details Date Type Department Care Team (Late st Contact Info) Description 04/16/2022 3:45 PM EST Office Visit Thoracic Surgery at [facility] [place] [address] Gilmer Gutiérrez MD [facility] [place] [address] Pleural effusion; Squamous cell carcinoma of left [...] Sign Reading Time Taken Comments Blood Pressure 95/66 04/16/2022 3:46 PM EST Pulse 114 04/16/2022 3:46 PM EST Temperature 35.9 ??C (96.7 ??F) 04/16/2022 3:46 PM ES T Respiratory Rate 20 04/16/2022 3:46 PM EST Oxygen Saturation 98% 04/16/2022 3:46 PM EST Inhaled Oxygen Concentration - - Weight 70.6 kg (155 lb 10.3 oz) 04/16/2022 3:46 PM EST Height - - Body Mass Index 23.51 03/06/2022 12:25 PM EST documented in this encounter Progress Notes * Yosef Butcher PA - 04/16/2022 3:45 PM EST Thoracic Surgery Outpatient Consultation Note MD Yosef Blanco. ASHLEY Butcher [place], [place] [address] Reason for Visit: Follow up HPI: Rajan Marquez is a 71 y.o. male who is s/p Left VATS ARACELI lobectomy on 03/29/2021, then developed a recurrent Left pleural effusion requiring Left VATS pleural biopsies on 02/08/2022. He was last seen on 03/06/2022, at which time he was recovering well, and since then has been feeling well overall, other than continued fatigue, SOB / PRIEST, cough, as well as some weight loss. Pain has been well controlled. Patient denies fevers, chills, sweats, chest pain, hemoptysis, nausea, vomiting, abdominal pain, edema. Physical Exam: Patient Vitals for the past 24 hrs: Temp Pulse Resp BP SpO2 04/16/22 1546 35.9 ??C (96.7 ??F) (!) 114 20 95/66 98 % Gen: NAD, pleasant, sitting up in chair HEENT: normocephalic, atraumatic, EOMI, sclerae anicteric Neck: supple, trachea midline Card: slightly tachycardic rate, irregular rhythm, no M/R/G appreciated Pulm: diminished throughout on Left, CTA on Right, no wheeze/ronchi/rales appreciated, non-labored breathing on RA Abd: soft, NT, ND, BS+ Ext: warm, dry, no edema Neuro: A&Ox3, nonfocal, conversant Imaging: CT Chest (04/16/2022): Awaiting final read per radiology Assessment: Rajan Marquez is a 71 y.o. male who is s/p Left VATS ARACELI lobectomy on 03/29/2021, then developed a recurrent Left pleural effusion requiring Left VATS pleural biopsies on 02/08/2022. Now with recurrenteffusion on imaging. Plan as outlined below: Plan: 1. Will plan to proceed with robot assisted Left VATS total decortication, possible thoracotomy 2. Will obtain repeat PFTs 3. Recommend minimum of 30 minutes of exercise daily 4. Please call with any questions or concerns at any time Patient was seen and evaluated in conjunction with Dr. Gutiérrez. 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 Marquez is a 71-year-old man who underwent thoracoscopic left upper lobectomy on March 29, 2021, and subsequently developed a loculated left pleural effusion with thoracoscopic pleural biopsies performed on February 08, 2022. The biopsies revealed a benign inflammatory process but the patient's effusion persisted and he remains significantly dyspneic. He comes in today having completed a chest CT. His symptoms are unchanged. Current Outpatient Medications on File Prior to [...] Take 1 tablet by mouth daily. ??? UNABLE TO FIND Cbd gummies to help with smoking cessation. ??? omeprazole (PriLOSEC) 20 mg Capsule, Delayed Release(E.C.) Take 20 mg by mouth daily. Current Facility-Administered Medications on File Prior to Visit Medication Dose Route Frequency Provider Last Rate Last Admin ??? [COMPLETED] iohexoL (Omnipaque) (350 mg/mL) solution 0-200 mL 0-200 mL Intravenous Once PRN Fan March MD 60 mL at 04/16/22 1533 BP 95/66 (BP Location (NBP): Left arm, Patient Position: Sitting) Pulse (!) 114 Temp 35.9 ??C (96.7 ??F) (Temporal) Resp 20 Wt 70.6 kg (155 lb 10.3 oz) SpO2 98% BMI 23.51 kg/m?? Physical exam: His breathing does not appear labored at rest. His right lung is clear whereas the left is diminished. His thoracoscopy incisions have healed acceptably. Imaging: I reviewed the patient's chest CT dated April 16. 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 Iadvised the patient that although this may not be progressive it was unlikely to resolve without surgical intervention. We discussed options including an attempt at palliative Pleurx catheter placement, continued supportive care and formal decortication. The patient's preference is to proceed with surgery. I advised him that although a minimally invasive approach could be attempted, that a thoracotomy was likely to be necessary. We will obtain new pulmonary function testing in anticipation of this procedure. Plan: PFTs, attempted robotic decortication with likely left thoracotomy decortication IGLMER GUTIÉRREZ MD documented in this encounter Plan of Treatment Scheduled Procedures Name Priority Associated Diagnoses Date/Ti ne ELECTROPHYSIOLOGY PROCEDURE Persistent atrial fibrillation CARDIOVERSION-ELECTIVE (WRVU 2) persistent atrial fibrillation TRANSESOPHAGEAL ECHOCARDIOGR AM (WRVU 2.3) persistent atrial fibrillation documented as of this encounter Results * Pulmonary Function Testing (04/30/2022 2:44 PM EST) FVC Actual Pre-BD 2.62 L COMPAS PFT FVC Pre-BD % of Predicted 68 % COMPAS PFT FVC Predicted 3.84 L COMPAS PFT FVC Pre-BD Z-Score -1.99 COMPAS PFT FVC Lower Limits of Normal 2.83 L COMPAS PFT FEV1 Actual Pre-BD 1.94 L COMPAS PFT FEV1 Pre-BD % of Predicted 67 % COMPAS PFT FEV1 Predicted 2.91 L COMPAS PFT FEV1 Pre-BD Z-Score -1.91 COMPAS PFT FEV1 Lower Limits of Normal 2.08 L COMPAS PFT FEV1 / FVC Actual Pre-BD 74 % COMPAS PFT FEV1/FVC Pre-BD Z-Score -0.25 COMPAS PFT FEV1 / FVC LLN 62 % COMPAS PFT [id number] Actual Pre-BD 1.42 L/s COMPAS PFT [id number] Pre-BD % of Predicted 64 % COMPAS PFT GEV28-68 Predicted 2.21 L/s COMPAS PFT LDH22-02 Pre-BD Z-Score -0.94 COMPAS PFT DLCO Hb Actual Pre-BD 16.48 mL/min/mmHg COMPAS PFT DLCO Hb Pre-BD % of Predicted 69 % COMPAS PFT DLCO Hb Pre-BD Z-Score -1.93 COMPAS PFT DLCO Hb Predicted 23.77 mL/min/mmHg COMPAS PFT DLCO UNC ACT PRE-BD 14.83 mL/min/mmHg COMPAS PFT DLCO UNC PRE-BD % of PRED 62 % COMPAS PFT DLCO UNC PRE-BD Z-SCORE -2.43 % COMPAS PFT DLCO UNC Predicted 23.77 mL/min/mmHg COMPAS PFT DLCO/VA Actual Pre-BD 3.35 mL/min/mmHg /L COMPAS PFT DLCO/VA Pre-BD % of Predicted 82 % COMPAS PFT DLCO/VA Pre-BD Z-Score -1.11 COMPAS PFT DLCO/VA Predicted 4.08 mL/min/mmHg /L COMPAS PFT Narrative COMPAS PFT - 04/30/2022 2:44 PM EST FINDINGS: FEV1 and FVC are reduced, FEV1/VC is normal. Diffusion capacity is reduced even when adjusted for hemoglobin of 11.5 g/dL. IMPRESSION: Spirometry suggests a moderate restrictive defect which can be confirmed by measurement of lung volumes, if clinically indicated. ??The decreased diffusing capacity is a nonspecific finding consistent with a variety of cardiopulmonary disorders. ??Compared to the last study on 02/13/21, the FVC decreased by 1.71 L, the FEV1 decreased by 1.51 L and the DLCO decreased by 46%. Procedure Note NEW, GLATT - 05/02/2022 FINDINGS: FEV1 and FVC are reduced, FEV1/VC is normal. Diffusion capacityis reduced even when adjusted for hemoglobin of 11.5 g/dL. IMPRESSION: Spirometry suggests amoderate restrictive defect which can be confirmed by measurement of lung volumes, ifclinically indicated. The decreased diffusing capacity is a nonspecific finding consistent with avariety of cardiopulmonary disorders. Compared to the last study on 02/13/21, the FVCdecreased by 1.71 L, the FEV1 decreased by 1.51 L and the DLCO decreased by 46%. Gilmer Gutiérrez MD PFT ORDERABLES COMPAS PFT documented in this encounter Visit Diagnoses Diagnosis Pleural effusion Unspecified pleural effusion 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 Other postprocedural status Pleural effusion Unspecified pleural effusion 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 Other postprocedural status documented in this encounter Care Teams Technology Infusion Specialist Relationship Specialty Start Date End Date Aldair-Tami Paz [address] [place] [address] PCP - General Family Medicine 12/30/20 documented as of this encounter
--- OUTSIDE RECORDS SUMMARY | 2023-12-11 17:34 | XMS_ITS | Encounter Summary ---
Author Organization [facility] [place] [address] Care Team Providers Care Bank Consultant Name Role Phone Tami Olivia Primary Care Provider [phone] Encounter Details Date Type Department Care Team (Latest Contact Info) Description 04/16/2022 1:30 PM EST Laboratory Appointment Lab [facility]L [facility] [place] [address] Pleural effusion; Squamous cell carcinoma of left [...] Procedure Name Priority Date/Time Associated Diagnosis Comments HEMOGRAM Routine 04/16/2022 2:10 PM EST Pleural effusion Squamous cell carcinoma of left lung DIFFERENTIAL, AUTOMATED Routine 04/16/2022 2:10 PM EST Pleural effusion Squamous cell carcinoma of left lung HC CBC,PLT & AUTO DIFF Routine 04/16/2022 2:10 PM EST Pleural effusion Squamous cell carcinoma of left lung HC VENIPUNCTURE Routine 04/16/2022 2:10 PM EST Pleural effusion Squamous cell carcinoma of left lung documented in this encounter Results * (ABNORMAL) Differential, Automated (04/16/2022 2:10 PM EST) Neutrophil % 70.5 % [facility] Neutrophil Absolute 5.46 1.70 - 6.10 x10(3)/mc L [facility] Lymph % 16.6 % [facility] Lymphocytes Abs 1.3 0.9 - 3.2 x10(3)/mc L [facility] Monocyte % 11.4 % [facility] Monocyte Abs 0.9 0.3 - 0.9 x10(3)/mc L [facility] Eos % 0.1 % [facility] Eosinophils Abs 0.0 0.0 - 0.4 x10(3)/[facility] Basophil % 0.6 % [facility] Baso Absolute 0.0 0.0 - 0.1 x10(3)/[facility] Immature Gran % 0.80 % [facility] Comment: Immature granulocytes(IG's)percentage and absolute count will include metamyelocytes, myelocytes, and promyelocytes. Blood smears from CBCs yielding IG's will be scanned manually for concordance. If this scan disagrees with the automated IG or if promyelocytes are noted, a manual differential will be performed. Immature Gran Absolute 0.06(H) 0.00 - 0.04 x10(3)/ L [facility] Blood 04/16/2022 2:10 PM EST 04/16/2022 2:21 PM EST Narrative Resulting Agency Comment Spec In Lab Gilmer Gutiérrez MD HEMATOLOGY ORDER PHILOMENA [facility] [place] [address] * (ABNORMAL) Hemogram (04/16/2022 2:10 PM EST) White Blood Cell 7.8 4.0 - 9.5 x10(3)/ L [facility] Red Blood Cell 4.54(L) 4.58 - 5.54 x10(6)/mc L [facility] Hemoglobin 11.5(L) 13.7 - 16.5 g/dL [facility] Hematocrit 36.9(L) 40.5 - 48.5 % [facility] Mean Cell Volume 81.3(L) 82.9 - 93.1 fL [facility] Mean Cell Hemoglobin 25.3(L) 27.5 - 32.1 pg [facility] Mean Cell Hemoglobin Concentration 31.2(L) 32.0 - 35.7 g/dL [facility] Platelet 364(H) 145 - 357 x10(3)/mc L [facility] RDW Standard Deviation 48.6(H) 36.0 - 45.0 fL [facility] RDW coefficient of variation 16.6(H) 11.4 - 13.8 % [facility] Mean Platelet Volume 8.6 7.6 - 12.9 fL [facility] NRBC% auto 0.0 % [facility] NRBC Absolute 0.000 0.000 - 0.000 x10(3)/[facility] Blood 04/16/2022 2:10 PM EST 04/16/2022 2:21 PM EST Narrative Resulting Agency Comment Spec In Lab Gilmer Gutiérrez MD HEMATOLOGY ORDER PHILOMENA [facility] [place] [address] * (ABNORMAL) Comprehensive metabolic panel (non-fasting) (04/16/2022 2:10 PM EST) Glucose 98 65 - 199 mg/dL [facility] Comment:Diabetes: >=200 mg/d L plus symptoms Blood Urea Nitrogen 19 10 - 20 mg/dL [facility] Creatinine 1.20 0.80 - 1.50 mg/dL [facility] Sodium 135 135 - 145 mmol/L [facility] Potassium 4.8 3.5 - 5.0 mmol/L [facility] Comment: Please note: ??Patients with WBC >100,000 may have falsely elevated Potassium levels. ??For accurate Potassium quantification in these patients send serum separator tube (gold top) for subsequent determinations. ??Contact the Clinical Chemistry Laboratory if there are any questions. Chloride 97(L) 98 - 107 mmol/L [facility] Carbon Dioxide 25 22 - 31 mmol/L [facility] Anion Gap 13 5 - 15 mmol/L [facility] Calcium 10.7(H) 8.5 - 10.5 mg/dL [facility] Protein, Total 7.3 6.1 - 8.0 g/dL [facility] Albumin 3.8 3.2 - 5.2 g/dL [facility] Aspartate Aminotransferase 11 0 - 39 unit/L [facility] Alanine Aminotransferase 13 0 - 55 unit/L [facility] Alkaline Phosphatase 202(H) 40 - 130 unit/L [facility] Bilirubin, Total 0.5 0.2 - 1.3 mg/dL [facility] Est Glomerular Filtration Rate 64 >=60 mL/min/1. 73 m?? [facility] Comment: This patient's estimated GFR [...] and symptoms in addition to eGFR. Blood 04/16/2022 2:10 PM EST 04/16/2022 2:21 PM EST Narrative Resulting Agency Comment Spec In Lab Gilmer Gutiérrez MD CHEMISTRY ORDERA BLES [facility] [place] [address] documented in this encounter Visit Diagnoses Diagnosis Pleural effusion Unspecified pleural effusion 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 Other postprocedural status documented in this encounter Care Teams Bank Consultant Relationship Specialty Start Date End Date Tami Olivia [address] [place] [address] PCP - General Family Medicine 12/30/20 documented as of this encounter
--- OUTSIDE RECORDS SUMMARY | 2023-12-11 17:34 | XMS_ITS | Encounter Summary ---
Author Organization [facility] Address [facility] [place] [address] Care Team Providers Care Mammography Technologist Name Role Phone Tami Olivia Primary Care Provider [phone] Encounter Details Date Type Department Care Team (Latest Contact Info) Description 04/30/2022 Travel Social History Tobacco Use Types Packs/Day [...] on filedocumented in this encounter Care Teams Mammography Technologist Relationship Specialty Start Date End Date Tami Olivia [address] [place] [address] PCP - General Family Medicine 12/30/20 documented as of this encounter
--- OUTSIDE RECORDS SUMMARY | 2023-12-11 17:34 | XMS_ITS | Encounter Summary ---
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 Procedures CT Chest w Contrast Gilmer Gutiérrez MD [facility] [place] [address] [place] [address] Referral ID Status Reason Start Date Expiration Date V isits Requested Visits Authorized [id number] Closed Specialty Service Requested 03/06/2022 09/05/2023 1 1 Reason for Visit * Diagnostic Test (Routine) - Closed Specialty Diagnoses / Procedures Referred By Bert gautam Referred To Contact Radiology Diagnoses Pleural effusion 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 Procedures CT Chest w Contrast Gilmer Gutiérrez MD [facility] [address] [place] [address] [place] [address] Referral ID Status Reason Start Date Expiration Date V isits Requested Visits Authorized [id number] Closed Specialty Service Requested 03/06/2022 09/05/2023 1 1 Encounter Details Date Type Department Care Team (Latest Contact Info) Description 04/16/2022 2:16 PM EST - 04/16/2022 11:59 PM EST Hospital [place] [id number] Gilmer Gutiérrez MD [facility] [address] [place] [address] Pleural effusion; Squamous cell carcinoma of left lung; Status post lobectomy of lung Discharge Disposition: Home Social History Tobacco [...] Procedure Name Priority Date/Time Associated Diagnosis Comments CT CHEST W CONTRAST Routine 04/16/2022 3 :33 PM EST Pleural effusion 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 ? Electronically signed by: Maryann Magallanes MD, [facility] ([phone]), at 04/16/2022 7:31 PM Narrative 04/16/2022 7:31 [...] patients who have questions please contactthe health day care assistant that requested your imaging first. Electronically signed by: Maryann Magallanes MD, [facility]([phone]), at 04/16/2022 7:31 PM Gilmer Gutiérrez MD IMG CT ORDERABLE S documented in this encounter Visit Diagnoses Diagnosis Pleural effusion Unspecified pleural effusion 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 Other postprocedural status documented in this encounter Administered Medications Inactive Administered Medications - up to 3 most recent administrations Medication Order MAR Action Action Date Dose Rate Site iohexoL (Omnipaque) (350 mg/mL) solution 0-200 mL 0-200 mL, Intravenous, ONCE PRN, 1 dose, Starting on Sat04/16/22 at 1533, Until Sat04/16/22 at 1533, Per Protocol, Warning Vesicant/Irritant Medication , Radiology Contrast, Routine Given 04/16/2022 3:33 PM EST 60 mLs documented in this encounter Care Teams X Ray Equipment Tester Relationship Specialty Start Date End Date Tami Olivia [address] [place] [address] PCP - General Family Medicine 12/30/20 documented as of this encounter
--- OUTSIDE RECORDS SUMMARY | 2023-12-11 17:34 | XMS_ITS | Encounter Summary ---
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 Procedures PRO THORACOSCOPY SURG TOT PULM DECORT @ROBOT XI THORACOSCOPY,SURG; W TOTAL DECORTICATION (WRVU 29.13) Gilmer Gutiérrez MD [facility] [place] [address] [facility] Referral ID Status Reason Start Date Expiration Date Visits Re quested Visits Authorized [id number] 1 1 Encounter Details Date Type Department Care Team (Late st Contact Info) Description 05/18/2022 9:21 AM EST Anesthesia [place] [address] Mary Wagoner MD [facility] [place] [address] Jakob Dickerson DO [facility] [place] [address] Anesthesia Record Procedure Summary Procedure Name Responsible Anesthesiologist Anesthesia Start Time Anesthesia Stop Time @THORACOTOMY,DECORT ICATION, PULMONARY, TOTAL (WRVU 26.65) (Left: Chest) Mary Wagoner MD 05/18/22 0921 05/18/22 1408 Events Date Time Event Comment 05/18/2022 0921 AN Verify 0921 Start 0921 An Start Data 0926 An Induction 0935 An Intubation 0937 Anesthesia Ready 0941 FO Bronchoscopy 0941 An one lung vent 1225 Quick Note Pt found to hav e slipped into a more prone position. We airplaned the OR table left and the nursing team re-secured his left arm to the suspension device. 1342 Extubation/LMA Out 1408 an stop data 1408 Recovery or ICU Handoff Lucy ent care was transferred to the destination unit staff after review of the patient's medical history, current anesthetic/surgical status and plan, according to the Provider Handoff Checklist. 1408 Stop 1513 Meds Name Total Propofol 120 mg Rocuronium 70 mg PHENYLephrine 560 mcg Ondansetron 4 mg PHENYLephrine INF 18,740 mcg Vasopressin 5 Units Ketamine 10 mg/mL 50 mg ceFAZolin (Ancef) 2 g vial a ttach to sodium chloride 0.9% 100 mL Mini-Bag Plus 2 g Esmolol 50 mg Sugammadex 200 mg Lactated Ringers 3,000 mL * Agents Name O2 * Blood No blood administrations on file. Lines, Drains, and Airways Type Details Placement Removal Incision 05/18/22; 1000; Left ; back; transverse 05/18/22 1000 by Sanket Murphy, CHRISTINA Chest Tube 05/18/22; 1318; Left ; 28Fr straight 05/18/22 1318 by Sanket Murphy RN Incision 02/08/22; 1240; Left ; chest; laparoscopic puncture; LDA not present upon assessment; 05/22/22; 0700 02/08/22 1240 by Judie Carrasco RN 05/22/22 0700 by Maribell Farias RN (RETIRED) Peripheral IV Line - Single Lumen 05/18/22; 0733; median cubital vein (antecubital fossa), right; fygv-ovl-pelgxz catheter system; Anatomical Landmarks; 22 gauge; Beth Rodriguez RN; tolerated well; site symptomatic; 05/22/22; 2200 05/18/22 0733 by Nancy Young RN 05/22/22 2200 by Sandro Newton RN Epidural 05/18/22; 0847; thoracic; loss 6, tip T5, 15+cm skin; Dr. Ellis and Dr. Rosenberg; analgesia, continuous infusion; catheter intact, removed with ease; Catheter intact, No complications; 05/24/22; 0848 05/18/22 0847 by Isis Don RN 05/24/22 0848 by Kerry Orozco RN ETT Mask Ventilation: Adjunct (2); ETT Type: Cuffed, Oral; Double Lumen: 41 Fr; Mac Blade: 4; Notes: Asleep, Pre-O2, Stylette; Attempts: 1; Laryngoscopy Grade: 1; ETT Placement Verified By: Capnometry, Visual; Inserted by: jagruti; Removal Date: 05/18/22; Removal Time: 1342 05/18/22 0935 by Sloan Rosa MD 05/18/22 1342 by Sloan Rosa MD Urethral Catheter 05/18/22; 0936; Surg ashia longer than 2 hours; indwelling double lumen catheter; hydrophilic coated; 14; inserted at this facility; 1; 5; 10; (Pt under general anesthesia prior to catheter placement); drainage bag to dependent drainage; 05/24/22; 0800 05/18/22 0936 by Sanket Murphy RN 05/24/22 0800 by Debbie Traore LNA (RETIRED) Peripheral IV Line - Single Lumen 05/18/22; 0936; dorsal arch vein (top of hand), left; csnt-rbn-gmpdto catheter system; Anatomical Landmarks; 16 gauge; nickie; 05/24/22; 1457 05/18/22 0936 by Sloan Rosa MD 05/24/22 1457 by Cori Motta RN documented in this encounter Social History [...] OR Notes * Anesthesia Postprocedure Evaluation - Sloan Rosa MD - 05/18/2022 2:23 PM EST Department of Anesthesiology Post-procedure Note Patient: Rajan Marquez Procedure Summary Date: 05/18/22 Room / Location: [facility] OR [facility] MAIN OR Anesthesia Start: 920 Anesthesia Stop: 1407 Procedures: @THORACOTOMY,DECORTICATION, PULMONARY, TOTAL (WRVU 26.65) (Left: Chest) BRONCHOSCOPY, DIAGNOSTIC (WRVU 2.53) MODIFIER RIB RESECTION (Left) @MAJOR RECONSTRUCTION, CHEST WALL (WRVU 22.51) (Left: Chest) Diagnosis: Status post lobectomy of lung (fibrothorax) Surgeons: Gilmer Gutiérrez MD Responsible Provider: Mary Wagoner MD Anesthesia Type: general ASA Status: 3 All Anesthesia Providers: Anesthesiologist: Mary Wagoner MD Senior Instructor: Sloan Rosa MD Vitals Value Taken Time BP Temp Pulse Resp SpO2 Pain Level Patient Location: PACU/[facility] Level of Consciousness: Awake and Alert Pain Management: Satisfactory Analgesia PONV: None Cardiovascular Status: At Baseline and Hemodynamically Stable Respiratory Status: At Baseline and Supplemental O2 (NC or FM) Postoperative Fluid Status: Possible Anesthetic Complications: NONE apparent at time of evaluation Final Primary Anesthesia Type: General (The anesthetic type performed was the same as planned.) Comments: Sloan Rosa MD * Anesthesia Procedure Notes - Karri Ellis MD - 05/18/2022 9:52 AM EST Associated Order(s): Neuraxial Block Procedure: Neuraxial Block Post-op Pain Control Post-op pain management at the request of surgeon. Type: Epidural The patient was greeted. The sedation plan, its benefits, risks and alternatives were discussed with the patient. The patient has consented to the procedure. The medical history and chart were reviewed. The timeout was performed. Start time: 05/18/2022 8:43 AM End time: 05/18/2022 9:19 AM Baseline Information ([id number] entry for database use): HTN: Yes Patient Prep Position: Prone Prep: Hand Hygiene, Hat, Mask, Sterile Gloves, Gown, Chlorhexidine and Patient Draped Injection technique: continuous Skin Anesthetic Lidocaine 1% 8 ml Procedure Technique Level of needle insertion: L1-2 Needle approach: paramedian Needle Type: Tuohy Gauge: 17 Needle length: 3.5 in Needle insertion depth when CLARE achieved: 6 cm Technique for Loss of Resistance: CLARE saline A 19 guage catheter introduced into the space. Catheter at skin depth: 15 cm Dressing/Secured with: Chlorhexidine Tegaderm, Tegaderm and Tape Number of attempts: 2 Medications: Date/Time: 05/18/2022 8:43 AM Events/Notes Imaging: epidurogram obtained and fluoroscopy guided Level of Epidural Tip via Fluoroscopy: T6-7 Iohexol 300 mgI/mL, 5 mL Events: unable to thread epidural catheter, Initial catheter curled in epidural space, unable to pull back so catheter and tuohy removed. Additional Notes: Patient tolerated procedure well. Initial attempt to thread catheter and catheterkinked thus tuohy and catheter removed. Second attempt at different level and catheter threaded with ease and reassuring AP/lateral epidurogram obtained. Patient was [facility] to [facility] by resident services director in stable condition. Geometry Professor (Caleb) Georgette was present for the entire procedure. PA and Lateral dye study confirmed correct epidural location. Resident/ELECTRONICS ASSEMBLER AND TESTER: Second Resident/ELECTRONICS ASSEMBLER AND TESTER: SRNA: Fellow: Belkis Rosenberg MD Attending Physician: Karri Ellis MD ~~~~~~~~~~~~~~~~~~~~~~~~~~~~~~~~~~~~~~~~~~~~~~~~~~~~~~~~~~~~ * Anesthesia Preprocedure Evaluation - Sloan Rosa MD - 05/17/2022 6:26 PM EST Pre-Anesthesia Evaluation for: Rajan Marquez a 71 y.o. male. Procedure(s): @ROBOT XI THORACOSCOPY,SURG; W TOTAL DECORTICATION (WRVU 29.13) MODIFIER ROBOT,DAVINCI XI Patient Active Problem List Diagnosis Date Noted [...] IR Thoracentesis Left 11/08/2021 Ramírez Ramirez MD [facility] INTERVENTIONL RAD ??? PRO BRONCHOSCOPY, DIAGNOSTIC N/A 03/29/2021 BRONCHOSCOPY, DIAGNOSTIC (WRVU 2.78) performed by Gilmer Gutiérrez MD at [facility] MAIN OR ??? PRO BRONCHOSCOPY, DIAGNOSTIC N/A 02/08/2022 BRONCHOSCOPY, DIAGNOSTIC (WRVU 2.78) performed by Gilmer Gutiérrez MD at [facility] OR ? ? PRO INJECTION ANES AGENT &/ STEROID INTERCOSTAL NERVE SINGLE LEVEL Left 03/29/2021 NERVE BLOCK, INTERCOSTAL NERVE (WRVU 1.18) performed by Gilmer Gutiérrez MD at [facility] MAIN OR ??? PRO THORACOSCOPY SURG LOBECTOMY Left 03/29/2021 @THORACOSCOPY,SURGICAL,W\LOBECTOMY,TOTAL OR SEGMENTAL (WRVU 24.64) performed by Johana Gutiérrez MD at [facility] MAIN OR ??? PRO THORACOSCOPY WITH BIOPSY OF PLEURA Left 02/08/2022 THORACOSCOPY; WITH BIOPSY(IES) OF PLEURA (WRVU 4.58) performed by Gilmer Gutiérrez MD at [facility] OR ??? PRO THORACOSCOPY WITH MEDIASTINAL AND REGIONAL LYMPHADENECTOMY 03/29/2021 @THORACOSCOPY, SURG; W/MEDIASTINAL& REGIONAL LYMPHADENECTOMY (WRVU 4.12) performed by Gilmer Gutiérrez MD at [facility] MAIN OR ??? PRO THORACOSCOPY WITH WEDGE RESECTION AND ANATOMIC LUNG RESECTN Left 03/29/2021 @THORACOSCOPY, SURG; W/DX WEDGE RESC W/ANATOMIC LUNG RESC (WRVU 3) performed by Johana Gutiérrez MD at [facility] MAIN OR Social History Tobacco Use ??? [...] Physical Exam: Preprocedure Vitals Current as of 05/17/221825 No BP, pulse, respiration, SpO2, or temperature recorded. Height: Weight: BMI: IBW: Airway Assessment: Mallampati: II TM distance: >3 FB Neck ROM: full Cardiovascular Assessment: Rhythm: irregular system normal Pulmonary Assessment: unlabored breathing Dental Assessment: Misc Assessment: IV access: Peripheral line Last Filed Perioperative Cognitive Screening Value Time User 4AT TOTAL Score: 0 03/29/2021 8:00 PM Vanessa Salcedo RN Anesthesia Plan: ASA 3 general, with a(n) intravenous induction 71 y.o. male s/p L VATS lobectomy with subsequent persistent pleural effusion (s/p multiple thoracenteses) and fibrothorax, scheduled for robotic left total decortication with potential thoracotomy. Medical History: SCCa s/p L VATS lobectomy, Atrial flutter (amiodarone and rivaroxaban), COPD, CAD,HTN, GERD, BPH Anesthetic History: tolerated GA before; grade 1 DL, 41F double lumen Allergies reviewed Labs reviewed TTE 02/2022: Interpretation Summary Patient is in 2:1 atrial flutter. Left ventricle is normal in size with mild hypertrophy and sigmoid septum. There is probably normal global systolic function; cannot accurately quantify due to signficant tachyarrhythmia. Right ventricle is normal in size and function. Normal left atrial size. No hemodynamically significant valve disease. IVC is non-dilated and non-plethoric. PFT 04/2022: FINDINGS: FEV1 and FVC are reduced, FEV1/VC is normal. Diffusion capacity is reduced even when adjusted for hemoglobin of 11.5 g/dL. IMPRESSION: Spirometry suggests a moderate restrictive defect which can be confirmed by measurement of lung volumes, if clinically indicated. The decreased diffusing capacity is a nonspecific finding consistent with a variety of cardiopulmonary disorders. Compared to the last study on 02/13/21, the FVC decreased by 1.71 L, the FEV1 decreased by 1.51 L and the DLCO decreased by 46%. Anesthetic Plan: GA w/ ETT, arterial line, 2 IVs Jerrod Rosa MD 05/17/2022 Region - Intrathoracic Non-Cardiac Informed Consent: Anesthesia Screening documented in this encounter Miscellaneous Notes * Addendum Note - Sloan Rosa MD - 05/19/2022 8:38 AM EST Addendum created 05/19/22 0838 by Sloan Rosa MD Intraprocedure Meds edited * Addendum Note - Dorys Sampson - 05/18/2022 4:34 PM EST Addendum created 05/18/22 1634 by Dorys Sampson MD Order list changed documented in this encounter Plan of Treatment Scheduled Procedures Name Priority Associated Diagnoses Date/Ti me ELECTROPHYSIOLOGY PROCEDURE Persistent atrial fibrillation CARDIOVERSION-ELECTIVE (WRVU 2) persistent atrial fibrillation TRANSESOPHAGEAL ECHOCARDIOGR AM (WRVU 2.3) persistent atrial fibrillation documented as of this encounter Procedures Procedure Name Priority Date/Time Associated Diagnosis Comments [id number] ONLY Routine 05/18/2022 8:43 AM EST documented in this encounter Results * [id number] ONLY (05/18/2022 8:43 AM EST) Narrative Karri Ellis MD - 05/18/2022 8:43 AM EST Karri Ellis MD ? 05/18/2022 12:59 PM Procedure: ?? Neuraxial Block Post-op Pain Control Post-op pain management at the request of surgeon. Type: Epidural The patient was greeted. The sedation plan, its benefits, risks and alternatives were discussed with the patient. ??The patient has consented to the procedure. ??The medical history and chart were reviewed. ??The timeout was performed. Start time: 05/18/2022 8:43 AM End time: 05/18/2022 9:19 AM Baseline Information (TXQK-[id number]-[id number] entry for database use): HTN: ??Yes Patient Prep Position: Prone Prep: Hand Hygiene, Hat, Mask, Sterile Gloves, Gown, Chlorhexidine and Patient Draped Injection technique: continuous Skin Anesthetic Lidocaine 1% ??8 ml Procedure Technique Level of needle insertion: L1-2 Needle approach: paramedian Needle Type: Tuohy Gauge: 17 Needle length: 3.5 in Needle insertion depth when CLARE achieved: 6 cm Technique for Loss of Resistance: CLARE saline A 19 guage catheter introduced into the space. Catheter at skin depth: 15 cm Dressing/Secured with: Chlorhexidine Tegaderm, Tegaderm and Tape Number of attempts: 2 Medications: Date/Time: ??05/18/2022 8:43 AM Events/Notes Imaging: ??epidurogram obtained and fluoroscopy guided Level of Epidural Tip via Fluoroscopy: T6-7 Iohexol 300 mgI/mL, 5 mL Events: ??unable to thread epidural catheter, Initial catheter curled in epidural space, unable to pull back so catheter and tuohy removed. Additional Notes: ??Patient tolerated procedure well. Initial attempt to thread catheter and catheter kinked thus tuohy and catheter removed. Second attempt at different level and catheter threaded with ease and reassuring AP/lateral epidurogram obtained. Patient was transported to neighboring OR for their procedure by resident services director in stable condition. Geometry Professor (Sites) I was present for the entire procedure. PA and Lateral dye study confirmed correct epidural location. ?? Resident/ELECTRONICS ASSEMBLER AND TESTER: ? Second Resident/ELECTRONICS ASSEMBLER AND TESTER: SRNA: ? Fellow: ?Belkis Rosenberg MD Attending Physician: ? Caleb, Karri Sharp MD ~~~~~~~~~~~~~~~~~~~~~~~~~~~~~~~~~~~~~~~~~~~~~~~~~~~~~~~~~~~~ Karri Sharp [facility] [employer] MANAGER [employer] documented in this encounter Visit Diagnoses Not on filedocumented in this encounter Administered Medications Inactive Administered Medications - up to 3 most recent administrations Medication Order MAR Action Action Date Dose Rate Site ceFAZolin (Ancef) 2 g vial attach to sodium chloride 0.9% 100 mL Mini-Bag Plus 2 g, Intravenous, FIBRE OPTIC CABLE SPLICER TO O.R., 1 dose, On Sat05/18/22 at 0745, Administer over 30 Minutes, Intra-Operative (Intra-Procedure), Indication for (Active or Suspected): Prophylaxis New Bag 05/18/2022 9:40 AM EST 2 g esmoloL (Brevibloc) (10 mg/mL) injection Intravenous, PRN, Starting on Sat05/18/22 at 0934, Until Sat05/18/22 at 1408, Anesthesia Intra-op, Routine Given 05/18/2022 9:34 AM EST 50 mg ketamine (Ketalar) (10 mg/mL) IV bolus injection (Anesthesia) Intravenous, PRN, Starting on Sat05/18/22 at 0957, Until Sat05/18/22 at 1408, Anesthesia Intra-op Given 05/18/2022 10:44 AM EST 20 mg Given 05/18/2022 9:57 AM EST 30 mg lactated ringers infusion Intravenous, CONTINUOUS PRN, Starting on Sat05/18/22 at 0921, Until Sat05/18/22 at 1408, Anesthesia Intra-op New Bag 05/18/2022 9:21 AM EST ondansetron (pf) (Zofran) (2 mg/mL) injection Intravenous, PRN, Starting on Sat05/18/22 at 1336, Until Sat05/18/22 at 1409, Anesthesia Intra-op, Routine Given 05/18/2022 1:36 PM EST 4 mg PHENYLephrine (Maninder-Synephrine) (80 mcg/mL) in sodium chloride 0.9% 250 mL infusion Intravenous, CONTINUOUS PRN, Starting on Sat05/18/22 at 0935, Until Sat05/18/22 at 1408, Anesthesia Intra-op, Routine Rate/Dose Change 05/18/2022 9:48 AM EST 80 mcg/min 60 mL/hr Rate/Dose Change 05/18/2022 9:43 AM EST 60 mcg/min 45 mL/h r Rate/Dose Change 05/18/2022 9:39 AM EST 30 mcg/min 22.5 mL /hr PHENYLephrine in NS (PF) (MANINDER-SYNEPHRINE) 0.8 mg/10 mL (80 mcg/mL) multi-dose injection Syrg Intravenous, PRN, Starting on Sat05/18/22 at 0933, Until Sat05/18/22 at 1408, Anesthesia Intra-op, Routine Given 05/18/2022 9:43 AM EST 160 mcg Given 05/18/2022 9:40 AM EST 160 mcg Given 05/18/2022 9:37 AM EST 160 mcg propofoL (Diprivan) 10 mg/mL bolus injection (Anesthesia) Intravenous, PRN, Starting on Sat05/18/22 at 0930, Until Sat05/18/22 at 1408, Anesthesia Intra-op Given 05/18/2022 9:30 AM EST 120 mg rocuronium (Zemuron) (10 mg/mL) multi-dose injection Intravenous, PRN, Starting on Sat05/18/22 at 0930, Until Sat05/18/22 at 1408, Anesthesia Intra-op, Routine Given 05/18/2022 11:44 AM EST 20 mg Given 05/18/2022 9:30 AM EST 50 mg sugammadex (Bridion) 100 mg/mL injection Intravenous, PRN, Starting on Sat05/18/22 at 1338, Until Sat05/18/22 at 1409, Anesthesia Intra-op, Routine Given 05/18/2022 1:38 PM EST 200 mg vasopressin (Vasostrict) injection Intravenous, PRN, Starting on Sat05/18/22 at 0947, Until Sat05/18/22 at 1408, Anesthesia Intra-op, Routine Given 05/18/2022 12:11 PM EST 1 Units Given 05/18/2022 11:44 AM EST 1 Units Given 05/18/2022 11:09 AM EST 1 Units documented in this encounter Care Teams Lathe Turner Relationship Specialty Start Date End Date Tami Olivia [address] [place] [address] PCP - General Family Medicine 12/30/20 documented as of this encounter
--- OUTSIDE RECORDS SUMMARY | 2023-12-11 17:34 | XMS_ITS | Encounter Summary ---
Author Organization [facility] Address [facility] [place] [address] Care Team Providers Care Research Associate Quality Control Qc Name Role Phone Tami Olivia Primary Care Provider [phone] Encounter Details Date Type Department Care Team (Latest Contact Info) Description 03/06/2022 Travel Social History Tobacco Use Types Packs/Day [...] on filedocumented in this encounter Care Teams Research Associate Quality Control Qc Relationship Specialty Start Date End Date Tami Olivia [address] [place] [address] PCP - General Family Medicine 12/30/20 documented as of this encounter
--- OUTSIDE RECORDS SUMMARY | 2023-12-11 17:34 | XMS_ITS | Encounter Summary ---
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 Procedures PRO THORACOSCOPY SURG TOT PULM DECORT @ROBOT XI THORACOSCOPY,SURG; W TOTAL DECORTICATION (WRVU 29.13) Parth Foster MD [facility] [place] [address] [facility] Referral ID Status Reason Start Date Expiration Date Visits Re quested Visits Authorized [id number] 1 1 Encounter Details Date Type Department Care Team (Late st Contact Info) Description 05/18/2022 8:30 AM EST - 05/18/2022 2:15 PM EST Surgery [place] [address] Parth Foster MD [facility] [place] [address] @THORACOTOMY,DECORTICA TION, PULMONARY, TOTAL (WRVU 26.65) Social History Tobacco Use Types Packs/Day Years [...] Sign Reading Time Taken Comments Blood Pressure 98/65 05/18/2022 2:15 PM EST Pulse 105 05/18/2022 2:15 PM EST Temperature 36.4 ??C (97.5 ??F) 05/18/2022 1:57 PM ES T Respiratory Rate 21 05/18/2022 2:15 PM EST Oxygen Saturation 100% 05/18/2022 2:15 PM EST Inhaled Oxygen Concentration - - Weight 71.5 kg (157 lb 11.2 oz) 05/18/2022 7:07 AM EST Height 172.7 cm (5' 8) 05/18/2022 7:07 [...] date: 05/18/2022 Discharge date: 05/24/2022 Attending Physician: Parth Foster MD Discharge Diagnoses (Hospital Problems) and [...] Date: 05/18/2022 Surgeon: Surgeon(s) and Role: * Parth Foster MD - Primary * Linda Mustafa PA - Physician Groundsman * Renu Donald PA - Physician Groundsman * Morales Armas MD - Resident Procedure: [...] Hospital Course: Rajan Marquez was admitted to [facility] on 05/18/2022 via the Same Day Program. He was brought to the operating room on 05/18/[address] Parth Foster performed surgery as described above. He [...] who have questions please contact the health medicare compliance auditor that requested your imaging first. Electronically signed by: Maryann Magallanes MD, [facility] ([phone]), at 05/18/2022 4:02 PM XR Chest PA & Lateral (Generic) (Exam End: 05/19/2022 11:06 AM) Impression Similar partially loculated moderate left hydropneumothorax. Thank you for letting us participate in the care of this patient. If you are a health care provider and have any questions regarding this report, please contact the number below. For patients who have questions please contact the health medicare compliance auditor that requested your imaging first. Electronically signed by: Savanah Suazo MD, [facility] ([phone]), at 05/19/2022 11:16 AM XR Chest PA [...] who have questions please contact the health medicare compliance auditor that requested your imaging first. Electronically signed by: Philip Church MD, [facility] ([phone]), at 05/23/2022 7:33 AM XR Chest PA [...] who have questions please contact the health medicare compliance auditor that requested your imaging first. Electronically signed by: Marcus Edwards MD, [facility] ([phone]), at 05/24/2022 8:58 AM XR Chest PA [...] who have questions please contact the health medicare compliance auditor that requested your imaging first. Electronically signed by: Marcus Edwards MD, [facility] ([phone]), at 05/24/2022 10:06 AM Pending Studies and [...] a nurse in the Thoracic Clinic at [phone]. After hours or on weekends or holidays please call: [phone] and ask to speak to the Thoracic Surgeon veterinary practitioner. Exercise & Activity Level: As you recover [...] please call the thoracic surgery clinic at [phone]. Driving: No driving for 1 week or [...] the Thoracic Clinic or the Thoracic Surgeon veterinary practitioner after hours. Please take over the counter [...] Expires XR Chest PA & Lateral (Generic) [10890 [id number] Custom] 06/07/2022 12/07/2022 Process Instructions: Scheduling Instructions: Questions: Reason for exam and clinical history: s/p left thoracotomy and decortication Clinical information / bryan questions for radiologist: eval for effusion and/or ptx Where will study be performed?: [facility] Radiology Portable exam?: Stat read required?: Date of injury if applicable: Requested Time: Referral to Pulmonary Rehab [DHD010 Custom] As directed Process Instructions: Scheduling Instructions: Questions: May include the following tests: Breathing Retraining: Diaphragmatic Techniques Provider Contact Information: Primary Care Provider: Tami Olivia [phone] Discharge References/Attachments: Discharge References/Attachments None For questions [...] a nurse in the Thoracic Clinic at [phone]. After hours or on weekends or holidays please call: [phone] and ask to speak to the Thoracic Surgeon veterinary practitioner. Exercise & Activity Level: As you recover [...] please call the thoracic surgery clinic at [phone]. Driving: No driving for 1 week or [...] the Thoracic Clinic or the Thoracic Surgeon veterinary practitioner after hours. Please take over the counter [...] as of this encounter Progress Notes * Deysi Motta, RN - 05/24/2022 2:46 PM EDT [...] answered. Please see flowsheet for full assessment. DEYSI MOTTA RN * Luis Miguel Perez, PT [...] (Left). ?? He is being managed on 3-west, and he has had issues with tachycardia [...] cane for ~ 2 weeks. 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 Enjoys 4-wheeling, kayaking and [...] reach and aware to call for staff services manager assistance with all mobility. Education: Pt educated on ther-ex, breathing, LUE precautions and sling use- and to wait for LUE activity and ROM progression until MD follow, and to have supervision of staff services manager or family for safetywith all mobility Assessment: Rajan Marquez was seen today for physical therapy treatment session for continuation ofPO. Pt friendly and pleasant and was educated [...] status. Pt expected to d/c home with / support later today and home services set [...] and d/c planning. LUIS MIGUEL PEREZ, PT Pager:[phone] Physical Therapy Inpatient Rehabilitation Department * Radha [...] Thoracentesis Left 11/08/2021 Forauer, Ramírez Ziegler MD [facility] INTERVENTIONL RAD ??? PRO BRONCHOSCOPY, DIAGNOSTIC N/A 03/29/2021 ?? BRONCHOSCOPY, DIAGNOSTIC (WRVU 2.78) performed by Parth Foster MD at [facility] OR ??? PRO BRONCHOSCOPY, DIAGNOSTIC N/A 02/08/2022 ?? BRONCHOSCOPY, DIAGNOSTIC (WRVU 2.78) performed by Parth Foster MD at [facility] OR ??? PRO BRONCHOSCOPY, DIAGNOSTIC N/A 05/18/2022 ?? BRONCHOSCOPY, DIAGNOSTIC (WRVU 2.53) performed by Parth Foster MD at [facility] OR ??? PRO DECORTICATION, PULMONARY, TOTAL Left 05/18/2022 ?? @THORACOTOMY,DECORTICATION, PULMONARY, TOTAL (WRVU 26.65) performed by Parth Foster MDat [facility] OR ? ? PRO INJECTION ANES AGENT &/ STEROID INTERCOSTAL NERVE SINGLE LEVEL Left 03/29/2021 ?? NERVE BLOCK, INTERCOSTAL NERVE (WRVU 1.18) performed by Parth Foster MD at [facility] OR ??? PRO RECONSTRUCT INJURED CHEST Left 05/18/2022 ?? @MAJOR RECONSTRUCTION, CHEST WALL (WRVU 22.51) performed by Parth Foster MD at [facility] MAIN OR ??? PRO THORACOSCOPY SURG LOBECTOMY Left 03/29/2021 ?? @THORACOSCOPY,SURGICAL,W\LOBECTOMY,TOTAL OR SEGMENTAL (WRVU 24.64) performed by Parth Foster MD at [facility] MAIN OR ??? PRO THORACOSCOPY WITH BIOPSY OF PLEURA Left 02/08/2022 ?? THORACOSCOPY; WITH BIOPSY(IES) OF PLEURA (WRVU 4.58) performed by Parth Foster MD at [facility] MAIN OR ??? PRO THORACOSCOPY WITH MEDIASTINAL AND REGIONAL LYMPHADENECTOMY ?? 03/29/2021 ?? @THORACOSCOPY, SURG; W/MEDIASTINAL& REGIONAL LYMPHADENECTOMY (WRVU 4.12) performed by Parth Foster MD at [facility] MAIN OR ??? PRO THORACOSCOPY WITH WEDGE RESECTION AND ANATOMIC LUNG RESECTN Left 03/29/2021 ?? @THORACOSCOPY, SURG; W/DX WEDGE RESC W/ANATOMIC LUNG RESC (WRVU 3) performed by Parth Foster MD at [facility] MAIN OR ? Social History: Patient lives with [...] more times Total Minutes, Occupational Therapy: 25 (id [phone]) Pager: [phone] GRAEEM Velasco 05/24/2022 Occupational Therapy Rehabilitation Department * [...] wean. We removed the epidural without complication. APMS will sign off at this time. IOJ RN, have performed the documentation for this encounter in the presence of and acting as a scribe for Dr. Molina. APMS Nurse: Oj Don RN Attending Physician:: Katie [...] (Left). ?? He is being managed on -, and he has had issues with tachycardia [...] cane for ~ 2 weeks. 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 Enjoys 4-wheeling, kayaking and [...] reach and aware to call for staff services manager assistance with all mobility. Education: Pt educated on ther-ex, breathing, and to call for assistance with all mobility Assessment: Rajan Marquez was seen today for physical therapy treatment session for continuation ofPOC. Pt friendly and agreeable to mobilize with encouragement, but needs assistance with line and tube management and cues for safety. He may be getting chest tube d/c'd tomorrow. He is aware to callfor assistance with mobility, and staff services manager aware of his status. Expect d/c to [...] Code: functional mobility LUIS MIGUEL PEREZ, PT Pager:[phone] Physical Therapy Inpatient Rehabilitation Department * Messi [...] ?? 11/08/2021 ?? IR Thoracentesis Left 11/08/2021 Forwerner, Ramírez Ziegler MD [facility] INTERVENTIONL RAD ??? PRO BRONCHOSCOPY, DIAGNOSTIC N/A 03/29/2021 ?? BRONCHOSCOPY, DIAGNOSTIC (WRVU 2.78) performed by Parth Foster MD at [facility] OR ??? PRO BRONCHOSCOPY, DIAGNOSTIC N/A 02/08/2022 ?? BRONCHOSCOPY, DIAGNOSTIC (WRVU 2.78) performed by Parth Foster MD at [facility] OR ??? PRO BRONCHOSCOPY, DIAGNOSTIC N/A 05/18/2022 ?? BRONCHOSCOPY, DIAGNOSTIC (WRVU 2.53) performed by Parth Foster MD at [facility] OR ??? PRO DECORTICATION, PULMONARY, TOTAL Left 05/18/2022 ?? @THORACOTOMY,DECORTICATION, PULMONARY, TOTAL (WRVU 26.65) performed by [facility] OR ? ? PRO INJECTION ANES AGENT &/ STEROID INTERCOSTAL NERVE SINGLE LEVEL Left 03/29/2021 ?? NERVE BLOCK, INTERCOSTAL NERVE (WRVU 1.18) performed by Parth Foster MD at [facility] OR ??? PRO RECONSTRUCT INJURED CHEST Left 05/18/2022 ?? @MAJOR RECONSTRUCTION, CHEST WALL (WRVU 22.51) performed by Parth Foster MD at [facility] OR ??? PRO THORACOSCOPY SURG LOBECTOMY Left 03/29/2021 ?? @THORACOSCOPY,SURGICAL,W\LOBECTOMY,TOTAL OR SEGMENTAL (WRVU 24.64) performed by Parth Foster MD at [facility] OR ??? PRO THORACOSCOPY WITH BIOPSY OF PLEURA Left 02/08/2022 ?? THORACOSCOPY; WITH BIOPSY(IES) OF PLEURA (WRVU 4.58) performed by Parth Foster MD at [facility] MAIN OR ??? PRO THORACOSCOPY WITH MEDIASTINAL AND REGIONAL LYMPHADENECTOMY ?? 03/29/2021 ?? @THORACOSCOPY, SURG; W/MEDIASTINAL& REGIONAL LYMPHADENECTOMY (WRVU 4.12) performed by Parth Foster MD at [facility] MAIN OR ??? PRO THORACOSCOPY WITH WEDGE RESECTION AND ANATOMIC LUNG RESECTN Left 03/29/2021 ?? @THORACOSCOPY, SURG; W/DX WEDGE RESC W/ANATOMIC LUNG RESC (WRVU 3) performed by Parth Foster MD at [facility] MAIN OR ? Social History: Patient lives with [...] sitting EOB) ?? Dressing: Min A (pt [facility] with assistance for line management) ?? Functional [...] more times Total Minutes, Occupational Therapy: 34 ([facility] X2 [phone])) Pager: [phone] Messi Dooley OT 05/23/2022 Occupational Therapy Rehabilitation Department * [...] acting as a scribe for Dr. Molina. [facility] Nurse: Oj Don RN Resident:: Jakob Dickerson DO Attending Physician:: Katie Molina MD I performed the above scribed service and agree with the accuracy of the note. KATIE MOLINA MD * Camilo Stevenson PA - 05/23/2022 9:19 AM EDT [facility] Department of Thoracic Surgery Inpatient Progress Note Patient Name: Rajan Marquez Patient : 1950 Patient Patient Location: [facility]326- Attending Surgeon: PARTH FOSTER ID: Rajan Marquez is a 71 [...] Surgical Unit Level 3 Wing D at [facility] Office Visit from 04/30/2022 in Thoracic Surgery at [facility] Weight 73.1 kilograms, or 161 pounds 2.5 [...] peripheral edema. Incisions: LEFT posterolateral thoracotomy incision GRAEME with sterip strips intact. No surrounding erythema, tenderness, drainage, or crepitus. Tubes/Lines/Drains: L Pleural CT, Matt, PIV, epidural I/O: I/O last 3 completed shifts: In: 1212.3 [P.O.:1100; I.V.:5; Other:107.3] Out: 3050 [Urine:2700; Other:350] L CT: 230cc/24hr, 80cc/12hr, SS, no air leak, -20 suction Labs: Last 3 wbc, hgb, hct plt Recent Labs 05/23/22 0352 05/22/22 03405/21/22 0409 WBC 6.8 7.3 6.7 HGB 8.2* [...] STEVE Black 05/23/2022 Thoracic Surgery Service Pager [phone] * Katie Molina MD - 05/22/2022 9:34 [...] RECONSTRUCTION, CHEST WALL (WRVU 22.51) APMS EPIDURAL ROUNDIN05/22/2022 9:34 AM Average Numeric Rating [...] acting as a scribe for Dr. Molina. [facility] Nurse: Oj Don RN Resident:: Jakob Dickerson DO Attending Physician:: Katie Molina MD I performed the above scribed service and agree with the accuracy of the note. KATIE MOLINA MD * Renu Donald PA - 05/22/2022 6:40 AM EDT Images from the original note were not included. [facility] Department of Thoracic Surgery Inpatient Progress Note Patient Name: Rajan Marquez Patient : 1950 [facility] Attending Surgeon: PARTH FOSTER ID: Rajan Marquez is a 71 [...] Surgical Unit Level 3 Wing D at [facility] Office Visit from 04/30/2022 in Thoracic Surgery at [facility] Weight 77 kg (169 lb 11.2 oz) [...] peripheral edema. Incisions: LEFT posterolateral thoracotomy incision GRAEME with sterip strips intact. No surrounding erythema, [...] 207 Last 3 Lytes Recent Labs 05/22/22 03405/21/22 0409 05/20/22 0408 NA 137 137 133* [...] STEVE Patel 05/22/2022 Thoracic Surgery Service Pager [phone] * Devorah Rivera RN - 05/22/2022 4:40 [...] indirect monitoring]: Masimo, Patient Safety Rounding * Luis Miguel Perez, [...] IR Thoracentesis Left 11/08/2021 Ramírez Ramirez MD [facility] INTERVENTIONL RAD ??? PRO BRONCHOSCOPY, DIAGNOSTIC N/A 03/29/2021 BRONCHOSCOPY, DIAGNOSTIC (WRVU 2.78) performed by Parth Foster MD at [facility] MAIN OR ??? PRO BRONCHOSCOPY, DIAGNOSTIC N/A 02/08/2022 BRONCHOSCOPY, DIAGNOSTIC (WRVU 2.78) performed by Parth Foster MD at [facility] MAIN OR ??? PRO BRONCHOSCOPY, DIAGNOSTIC N/A 05/18/2022 BRONCHOSCOPY, DIAGNOSTIC (WRVU 2.53) performed by Parth Foster MD at [facility] MAIN OR ??? PRO DECORTICATION, PULMONARY, TOTAL Left 05/18/2022 @THORACOTOMY,DECORTICATION, PULMONARY, TOTAL (WRVU 26.65) performed by Parth Foster MD [facility] MAIN OR ? ? PRO INJECTION ANES AGENT &/ STEROID INTERCOSTAL NERVE SINGLE LEVEL Left 03/29/2021 NERVE BLOCK, INTERCOSTAL NERVE (WRVU 1.18) performed by Parth Foster MD at [facility] MAIN OR ??? PRO RECONSTRUCT INJURED CHEST Left 05/18/2022 @MAJOR RECONSTRUCTION, CHEST WALL (WRVU 22.51) performed by Parth Foster MD at [facility] MAIN OR ??? PRO THORACOSCOPY SURG LOBECTOMY Left 03/29/2021 @THORACOSCOPY,SURGICAL,W\LOBECTOMY,TOTAL OR SEGMENTAL (WRVU 24.64) performed by Johana Foster MD at [facility] MAIN OR ??? PRO THORACOSCOPY WITH BIOPSY OF PLEURA Left 02/08/2022 THORACOSCOPY; WITH BIOPSY(IES) OF PLEURA (WRVU 4.58) [facility]?? PRO THORACOSCOPY WITH MEDIASTINAL AND REGIONAL LYMPHADENECTOMY 03/29/2021 @THORACOSCOPY, SURG; W/MEDIASTINAL& REGIONAL LYMPHADENECTOMY (WRVU 4.12) performed by Parth Foster MD at [facility] MAIN OR ??? PRO THORACOSCOPY WITH WEDGE RESECTION AND ANATOMIC LUNG RESECTN Left 03/29/2021 @THORACOSCOPY, SURG; W/DX WEDGE RESC W/ANATOMIC LUNG RESC (WRVU 3) performed by Johana Foster MD at [facility] MAIN OR Social History: Home set-up: Lives in a ranch style home with a basement and his partner. Bathroom Set-up: Walk in or tub shower on the main level, usually uses the tub shower. Stairs: ramp to enter. Baseline Mobility: hasn't been driving recently and has been using a cane for ~ 2 weeks. 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 Enjoys 4-wheeling, kayaking and yard work. Equipment [...] Discharge planning and to call for staff services manager assistance with all mobility and needs reinforcement. [...] Code: evaluation LUIS MIGUEL PEREZ, PT Pager: [phone] Physical Therapy Inpatient Rehabilitation Department * Sites, Karri Sharp MD - 05/21/2022 9:38 AM EDT Acute [...] catheter when his chest tube is removed. IMESSI RN, have performed the documentation for this encounter in the presence of andacting as a scribe for Dr. Karri Ellis. Anesthesia Staff ([facility]) Patient seen and examined on daily rounds. I agree with the above assessment and plan. [facility] Nurse: Messi Vieira RN Resident:: Jakob Dickerson DO Attending Physician:: Karri Ellis MD * Renu Donald PA - 05/21/2022 8:11 AM EDT Images from the original note were not included. [facility] Department of Thoracic Surgery Inpatient Progress Note Patient Name: Rajan Marquez Patient : 1950 [facility] Attending Surgeon: PARTH FOSTER ID: Rajan Marquez is a 71 [...] Surgical Unit Level 3 Wing D at [facility] Office Visit from 04/30/2022 in Thoracic Surgery at [facility] Weight 77.3 kg (170 lb 8 oz) [...] QTC Calculated (Bezet) 492 ms Calculated P Florence 106 degrees Calculated R Florence 71 degrees Calculated T Florence -169 degrees INTERPRETATION Sinus tachycardia Incomplete left bundle block Minimal voltage criteria for LVH, may be normal variant ( Lambert product ) Nonspecific ST and T wave [...] Result Value Ref Range Surgical Pathology Report [id number] Location: OR; OR11; A The signing pathologist has (i) examined the relevant preparation(s) for the specimen(s) and (ii) rendered or confirmed the diagnosis(es). . Frozen Section FROZEN SECTION DIAGNOSIS CFS - VISCERAL PLEURAL RIND. FROZEN, excision for frozen section Inflamed pleura, no evidence of malignancy (route sales representative sample) 05/18/22 11:27 Electronically signed by: Malia Lacy MD Verified: 05/18/2022 11:29 Pathologist Performed at: -[facility] Dept. of Pathology, [place] [address] Groundsman: Maria Ines Marrufo MD, FCAP, CLIA Certificate: [id number] This intraoperative consultation should be interpreted as [...] MD Verified: 05/18/2022 11:25 Pathologist Performed at: -[facility] Dept. of Pathology, [place] [address] Groundsman: Maria Ines Marrufo MD, FCAP, CLIA Certificate: [id number] This intraoperative consultation should be interpreted as [...] Value Ref Range T&S only valid at [facility] Basic Metabolic Panel (non-fasting) Result Value Ref [...] QTC Calculated (Bezet) 454 ms Calculated R Florence 82 degrees Calculated T Florence -102 degrees INTERPRETATION Sinus tachycardia with 1st [...] Epidural w/ PCEA per APS recommendations. Tylenol, ASSOCIATE DIRECTOR OF BIOSTATISTICS Bupropion Card: May consider increasing Metoprolol to 25mg BID, amiodarone (200mg daily) Pulm: IS/cough/deep breathe/OOB/ambulate. Continue left CT to -20 suction, monitor output. ASSOCIATE DIRECTOR OF BIOSTATISTICS spiriva, albuterol FENGI: Stop IVF, Regular diet. RBOs Renal/: Matt in place - will keep until epidural out, monitor UOP Heme: SQH, holding home Xarelto ID: SHELLEY Endo: SHELLEY MSK: ASSOCIATE DIRECTOR OF BIOSTATISTICS hydroxychloroquine for synovitis PPx: scds; SQH, Ambulate 4x a day. OOB. Other: Left arm in sling when OOB Dispo: full code, floor status All plans formulated in discussion with and directed by attending thoracic surgeon Dr. Foster. STEVE Peñaloza 05/21/2022 Thoracic Surgery Service Pager [phone] * Devorah Rivera RN - 05/21/2022 4:15 AM EDT OUTCOME EVALUATION NOTE: OUTCOME SUMMARY: Pt A&Ox4, pleasant and cooperative with care. Delirium precautions maintained. Complaints of pain to L CT site- scheduled pain medications and epidural infusion in place. Pain well controlled. Nocomplaints of SOB/PETERSON tolerating RA. CT to continuous sx -20 with continuous air leak, MD aware. Output recorded in eflowsheets. Intermittent nausea [...] on Hands on Surveillance [continuous indirect monitoring]: Masaakash, Patient Safety Rounding * Karri Ellis MD [...] Davis MD - 05/20/2022 7:39 AM EDT [facility] Department of Thoracic Surgery Inpatient Progress Note Patient Name: Rajan Marquez Patient : 1950 Patient Patient Location: [address] [place] [address] Attending Surgeon: PARTH FOSTER ID: Rajan Marquez is a 71 [...] Surgical Unit Level 3 Wing D at [facility] Office Visit from 04/30/2022 in Thoracic Surgery at [facility] Weight 75.4 kg (166 lb 3.2 oz) [...] QTC Calculated (Bezet) 492 ms Calculated P Florence 106 degrees Calculated R Florence 71 degrees Calculated T Florence -169 degrees INTERPRETATION Sinus tachycardia Incomplete left bundle block Minimal voltage criteria for LVH, may be normal variant ( Lambert product ) Nonspecific ST and T wave [...] Result Value Ref Range Surgical Pathology Report [id number] Location: OR; OR11; A The signing pathologist has (i) examined the relevant preparation(s) for the specimen(s) and (ii) rendered or confirmed the diagnosis(es). . Frozen Section FROZEN SECTION DIAGNOSIS CFS - VISCERAL PLEURAL RIND. FROZEN, excision for frozen section Inflamed pleura, no evidence of malignancy (route sales representative sample) 05/18/22 11:27 Electronically signed by: Malia Lacy MD Verified: 05/18/2022 11:29 Pathologist Performed at: -[facility] Dept. of Pathology, [place] [address] Groundsman: Maria Ines Marrufo MD, FCLESLY, CLIA Certificate: [id number] This intraoperative consultation should be interpreted as [...] MD Verified: 05/18/2022 11:25 Pathologist Performed at: -[facility] Dept. of Pathology, [place] [address] Groundsman: Maria Ines Marrufo MD, AP, CLIA Certificate: [id number] This intraoperative consultation should be interpreted as [...] Value Ref Range T&S only valid at [facility] Hosp Basic Metabolic Panel (non-fasting) Result Value [...] who have questions please contact the health medicare compliance auditor that requested your imaging first. Electronically signed by: Maryann Magallanes MD, [facility] ([phone]), at 05/18/2022 4:02 PM Assessment: Rajan Marquez [...] PT consulted. Plan: Neuro: Epidural w/ PCEA. ASSOCIATE DIRECTOR OF BIOSTATISTICS bupropion Card: HDS, ASSOCIATE DIRECTOR OF BIOSTATISTICS metoprolol, amiodarone (200mg daily) Pulm: IS/cough/deep breathe/OOB/ambulate. Continue left CT to -20 suction, monitor output. ASSOCIATE DIRECTOR OF BIOSTATISTICS spiriva, albuterol FENGI: LR @100 ml/hr, Regular diet. RBOs Renal/: Matt in place, monitor UOP Heme: SQH ID: SHELLEY Endo: SHELLEY MSK: ASSOCIATE DIRECTOR OF BIOSTATISTICS hydroxychloroquine for synovitis PPx: scds; SQH, Ambulate 4x a day. OOB. Dispo: full code, floor status Vaughn Davis MD 05/20/2022 Thoracic Surgery Service Pager [phone] * Karri Ellis MD - 05/19/2022 9:31 AM EST Acute Pain Medicine Service - Epidural Daily Management VITAL SIGNS: Visit Vitals BP (!) 88/64 (BP Location (NBP): Left arm, Patient Position: Lying) Comment: MD notified Pulse (!) 104 Temp 36.4 ??C [...] Armas MD - 05/19/2022 8:15 AM EST [facility] Department of Thoracic Surgery Inpatient Progress Note Patient Name: Rajan Marquez Patient : 1950 Patient Patient Location: [address] [place] [address] Attending Surgeon: PARTH FOSTER ID: Rajan Marquez is a 71 [...] Surgical Unit Level 3 Wing D at [facility] Office Visit from 04/30/2022 in Thoracic Surgery at [facility] Weight 71.5 kg (157 lb 11.2 oz) [...] QTC Calculated (Bezet) 492 ms Calculated P [place] 106 degrees Calculated R [place] 71 degrees Calculated T [place] -169 degrees INTERPRETATION Sinus tachycardia Incomplete left [...] Result Value Ref Range Surgical Pathology Report [id number] Location: OR; OR11; A The signing pathologist has (i) examined the relevant preparation(s) for the specimen(s) and (ii) rendered or confirmed the diagnosis(es). . Frozen Section FROZEN SECTION DIAGNOSIS CFS - VISCERAL PLEURAL RIND. FROZEN, excision for frozen section Inflamed pleura, no evidence of malignancy (route sales representative sample) 05/18/22 11:27 Electronically signed by: Malia Lacy MD Verified: 05/18/2022 11:29 Pathologist Performed at: -[facility] Dept. of Pathology, [place] [address] Groundsman: Maria Ines Marrufo MD, FCAP, [place] Certificate: [id number] This intraoperative consultation should be interpreted as a preliminary diagnosis pending review of the entire specimen and special studies, if any. A final Surgical Pathology report will follow this preliminary Frozen Section report(s). Frozen Section FROZEN SECTION DIAGNOSIS AFS - Left pleural rind, excision for frozen section : Chronic pleuritis and fibrin, negative for malignancy 05/18/22 11:20 Electronically signed by: Regino FLORES, Malia Swann Verified: 05/18/2022 11:25 Pathologist Performed at: -[facility] Dept. of Pathology, [place] [id number] Groundsman: Maria Ines Marrufo MD, [facility] Certificate: [id number] This intraoperative consultation should be interpreted as [...] Value Ref Range T&S only valid at [facility] Hosp Basic Metabolic Panel (non-fasting) Result Value [...] who have questions please contact the health medicare compliance auditor that requested your imaging first. Electronically signed by: Maryann Magallanes MD, [facility] ([phone]), at 05/18/2022 4:02 PM Assessment: Rajan Marquez [...] PT consulted. Plan: Neuro: Epidural w/ PCEA. ASSOCIATE DIRECTOR OF BIOSTATISTICS bupropion Card: HDS, ASSOCIATE DIRECTOR OF BIOSTATISTICS metoprolol, amiodarone (200mg daily) Pulm: IS/cough/deep breathe/OOB/ambulate. Continue left CT to -20 suction, monitor output. ASSOCIATE DIRECTOR OF BIOSTATISTICS spiriva, albuterol FENGI: LR @100 ml/hr, Regular diet. RBOs Renal/: Matt in place, monitor UOP Heme: SQH ID: SHELLEY Endo: SHELLEY MSK: ASSOCIATE DIRECTOR OF BIOSTATISTICS hydroxychloroquine for synovitis PPx: scds; SQH, Ambulate 4x a day. OOB. Dispo: full code, floor status Morales Armas MD 05/19/2022 Thoracic Surgery Service Pager [phone] * Morales Armas MD - 05/18/2022 3:27 PM EST [facility] Department of Thoracic Surgery Inpatient Post Op Check Patient Name: Rajan Marquez Patient : 1950 Patient Patient Location: [address] Attending Surgeon: PARTH FOSTER ID: Rajan Marquez is a 71 [...] Admission (Current) from 05/18/2022 in PACU at [facility] OfficeVisit from 04/30/2022 in Thoracic Surgery at [facility] Weight 71.5 kg (157 lb 11.2 oz) [...] QTC Calculated (Bezet) 492 ms Calculated P Florence 106 degrees Calculated R [place] 71 degrees Calculated T Florence -169 degrees INTERPRETATION Sinus tachycardia Incomplete left bundle block Minimal voltage criteria for LVH, may be normal variant ( Lambert product ) Nonspecific ST and T wave abnormality Abnormal ECG When compared with ECG of 21-FEB-2022 06:21, Sinus rhythm has replaced Atrial flutter Incomplete left bundle block is now Present Tissue culture Specimen: Lung Left pleural grumous Result Value Ref Range Gram Stain Few Neutrophils seen No microorganisms seen. Surgical Pathology Report Result Value Ref Range Surgical Pathology Report [id number] Location: OR; OR11; A The signing pathologist has (i) examined the relevant preparation(s) for the specimen(s) and (ii) rendered or confirmed the diagnosis(es). . Frozen Section FROZEN SECTION DIAGNOSIS CFS - VISCERAL PLEURAL RIND. FROZEN, excision for frozen section Inflamed pleura, no evidence of malignancy (route sales representative sample) 05/18/22 11:27 Electronically signed by: Malia Lacy MD Verified: 05/18/2022 11:29 Pathologist Performed at: -[facility] Dept. of Pathology, [place] [address] Groundsman: Maria Ines Marrufo MD, FCLESLY, CLIA Certificate: [id number] This intraoperative consultation should be interpreted as [...] MD Verified: 05/18/2022 11:25 Pathologist Performed at: -[facility] Dept. of Pathology, [place] [address] Groundsman: Maria Ines Marrufo MD, FCAP, CLIA Certificate: [id number] This intraoperative consultation should be interpreted as a preliminary diagnosis pending review of the entire specimen and special studies, if any. A final Surgical Pathology report will follow this preliminary Frozen Section report(s). ABO/Rh Typing Result Value Ref Range ABORh Type A Pos Antibody screen Result Value Ref Range Ab Screen Interp Negative Expires at 7669 on: 05/21/2022 ABORH Recheck Status Result Value Ref Range ABORH Recheck Order Order Placed ABORH Type Recheck Complete Type and Screen Validity Result Value Ref Range T&S only valid at [facility] Basic Metabolic Panel (non-fasting) Result Value Ref [...] who have questions please contact the health medicare compliance auditor that requested your imaging first. Assessment: Rajan Marquez is a 71 y.o. male who is Day of Surgery s/p robotic, converted to open left thoracotomy and total decortication. He is currently in stable condition and recovering well postoperatively.Post op CXR and labs reviewed. Maintain posterior CT strict suction and use a sling when OOB for left arm Plan: Neuro: Epidural w/ PCEA. ASSOCIATE DIRECTOR OF BIOSTATISTICS bupropion Card: HDS, ASSOCIATE DIRECTOR OF BIOSTATISTICS metoprolol, amiodarone (200mg daily) Pulm: IS/cough/deep breathe/OOB/ambulate. Continue left CT to -20 suction, monitor output. ASSOCIATE DIRECTOR OF BIOSTATISTICS spiriva, albuterol FENGI: LR @100 ml/hr, Regular diet. RBOs Renal/: Matt in place, monitor UOP Heme: SQH ID: SHELLEY Endo: SHELLEY MSK: ASSOCIATE DIRECTOR OF BIOSTATISTICS hydroxychloroquine for synovitis PPx: scds; SQH, Ambulate 4x a day. OOB. Dispo: full code, floor status Vaughn Davis MD 05/18/2022 Thoracic Surgery Service Pager [phone] * Missy Abdi RN - 05/18/2022 2:31 [...] in later 1535 Called for CXR [address] [place] removed Phase II met Feels better After second bolus Seen by Dr Sampson from anesthesia Epidural put to regular settings in light of stable bp and rib removal 1900 comfortable Waiting in line of six rooms that are all dirty 1999 neb tx given Having coffee 2039 report to [facility] 326 is cleaning When room ready, RN from PACU to travel with documented in this encounter H&P Notes * Linda Mustafa PA - 05/18/2022 7:03 AM EST Patient Name: Rajan Marquez Patient Age: 71 y.o. Birthdate: 1950 Admit date: 05/18/2022 Attending Physician: Parth Foster MD Thoracic Surgery Preop NAME: Rajan Marquez DATE: 05/18/22 SURGEON: PARTH FOSTER PROCEDURE: Bronchoscopy, L VATS, robot assisted [...] IR Thoracentesis Left 11/08/2021 Ramírez Ramirez MD [facility] INTERVENTIONL RAD ??? PRO BRONCHOSCOPY, DIAGNOSTIC N/A 03/29/2021 BRONCHOSCOPY, DIAGNOSTIC (WRVU 2.78) performed by Parth Foster MD at [facility] OR ??? PRO BRONCHOSCOPY, DIAGNOSTIC N/A 02/08/2022 BRONCHOSCOPY, DIAGNOSTIC (WRVU 2.78) performed by Parth Foster MD at [facility] OR ? ? PRO INJECTION ANES AGENT &/ STEROID INTERCOSTAL NERVE SINGLE LEVEL Left 03/29/2021 NERVE BLOCK, INTERCOSTAL NERVE (WRVU 1.18) performed by Parth Foster MD at [facility] MAIN OR ??? PRO THORACOSCOPY SURG LOBECTOMY Left 03/29/2021 @THORACOSCOPY,SURGICAL,W\LOBECTOMY,TOTAL OR SEGMENTAL (WRVU 24.64) performed by Johana Foster MD at [facility] MAIN OR ??? PRO THORACOSCOPY WITH BIOPSY OF PLEURA Left 02/08/2022 THORACOSCOPY; WITH BIOPSY(IES) OF PLEURA (WRVU 4.58) performed by Parth Foster MD at [facility] OR ??? PRO THORACOSCOPY WITH MEDIASTINAL AND REGIONAL LYMPHADENECTOMY 03/29/2021 @THORACOSCOPY, SURG; W/MEDIASTINAL& REGIONAL LYMPHADENECTOMY (WRVU 4.12) performed by Parth Foster MD at [facility] MAIN OR ??? PRO THORACOSCOPY WITH WEDGE RESECTION AND ANATOMIC LUNG RESECTN Left 03/29/2021 @THORACOSCOPY, SURG; W/DX WEDGE RESC W/ANATOMIC LUNG RESC (WRVU 3) performed by Johana Foster MD at [facility] MAIN OR MEDS: No current facility-administered medications [...] STEVE Sethi 05/18/2022 Thoracic Surgery Service Pager [phone] documented in this encounter Miscellaneous Notes * [...] none Patient is insured through: Primary Insurance: [employer] MANAGED MEDICARE Payor: AAR MANAGED MEDICARE / Plan: [facility] MA[facility]ICARE COMPLETE / Product Type: *No Producttype* / Secondary Insurance: N/A Prescription Coverage: Yes This plan was formulated with input from patient and team. All are in agreement with plan. Kenia Sepulveda RN-BSN-CM Pager: [phone] * Plan of Care - Raquel Hoffmann [...] Masimo, Purposeful Rounding, Nurse Knowledge Exchange Raquel Loaizaviki * Plan of Care - Maribell Farias [...] in AM Chest tube to water seal Matt care Pain control Mobilize D/c planning INDIVIDUALIZED [...] monitoring]: Masimo * Plan of Care - Maribell Farias [...] Office of Care Management Initial Assessment Kenia Sepulveda RN reviewed record and discussed patient with [...] surrogate would be surrogate decision maker per [place] surrogate decision making law. (Only good for 180 days) Any patient receiving care in [place] must abide by [place] law. The hierarchy for surrogate decision making [...] (i) The agent with financial power of ladle pourer or a conservator appointed in accordance with [...] Environmental Concerns: Resource/Environmental Concerns: none Current DME: [facility] Home Address confirmed as: [address] [place] [id number] Social & Family Supports: All names listed [...] Specific Information: none Health/Prescription Coverage: Primary Insurance: AAR MANAGED MEDICARE Payor: AARP MANAGED MEDICARE / Plan: AARP HMO MANAGED MEDICARE COMPLETE / Product Type: *No Producttype* / Secondary Insurance: N/A ; Prescription Coverage: Yes Preferred Pharmacy: [id number] [address] Status: Patient is a : No Primary Care Provider confirmed: Tami Olivia [phone] Patient/Caregiver Goals of Treatment: discharge home Potential Needs for Transition of Care: home health care Agency Referrals: I have met with the patient to: ?? discuss discharge planning needs. ?? provide the [facility], Office of Care Management letter from the Groundsman pertaining to rehabreferrals. ?? provide a letter describing our affiliations within the [facility] and educate about their right to choose where referrals are sent. ?? provide a list of Home Health Agencies / Durable Medical Equipment vendors which serve their preferred geographic area. ?? provided patient with [facility] Star Quality Rating handout. They have requested referrals to: [facility]. [address] [place] [phone] Note routed to a Medicare Compliance Auditor who will communicate referrals to facilities and [...] of care planning. Kenia Sepulveda RN-BSN-CM Pager: [phone] * Initial Assessments - Messi Dooley, OT [...] THORACENTESIS LEFT 11/08/2021 IR Thoracentesis Left 11/08/2021 Forauer, Ramírez Ziegler MD [facility] INTERVENTIONL RAD ??? PRO BRONCHOSCOPY, DIAGNOSTIC N/A 03/29/2021 BRONCHOSCOPY, DIAGNOSTIC (WRVU 2.78) performed by Parth Foster MD at [facility] MAIN OR ??? PRO BRONCHOSCOPY, DIAGNOSTIC N/A 02/08/2022 BRONCHOSCOPY, DIAGNOSTIC (WRVU 2.78) performed by Parth Foster MD at [facility] MAIN OR ??? PRO BRONCHOSCOPY, DIAGNOSTIC N/A 05/18/2022 BRONCHOSCOPY, DIAGNOSTIC (WRVU 2.53) performed by Parth Foster MD at [facility] MAIN OR ??? PRO DECORTICATION, PULMONARY, TOTAL Left 05/18/2022 @THORACOTOMY,DECORTICATION, PULMONARY, TOTAL (WRVU 26.65) performed by Parth Foster MD [facility] OR ? ? PRO INJECTION ANES AGENT &/ STEROID INTERCOSTAL NERVE SINGLE LEVEL Left 03/29/2021 NERVE BLOCK, INTERCOSTAL NERVE (WRVU 1.18) performed by Parth Foster MD at [facility] OR ??? PRO RECONSTRUCT INJURED CHEST Left 05/18/2022 @MAJOR RECONSTRUCTION, CHEST WALL (WRVU 22.51) performed by Parth Foster MD at [facility] OR ??? PRO THORACOSCOPY SURG LOBECTOMY Left 03/29/2021 @THORACOSCOPY,SURGICAL,W\LOBECTOMY,TOTAL OR SEGMENTAL (WRVU 24.64) performed by Johana Foster MD at [facility] MAIN OR ??? PRO THORACOSCOPY WITH BIOPSY OF PLEURA Left 02/08/2022 THORACOSCOPY; WITH BIOPSY(IES) OF PLEURA (WRVU 4.58) [facility] ??? PRO THORACOSCOPY WITH MEDIASTINAL AND REGIONAL LYMPHADENECTOMY 03/29/2021 @THORACOSCOPY, SURG; W/MEDIASTINAL& REGIONAL LYMPHADENECTOMY (WRVU 4.12) performed by Parth Foster MD at [facility] MAIN OR ??? PRO THORACOSCOPY WITH WEDGE RESECTION AND ANATOMIC LUNG RESECTN Left 03/29/2021 @THORACOSCOPY, SURG; W/DX WEDGE RESC W/ANATOMIC LUNG RESC (WRVU 3) performed by Johana Foster MD at [facility] MAIN OR Social History: Patient lives with [...] ?? WNL / WFL Communication: WFL B [place] (pt reports hearing aids are no longer [...] Discharge planning. Total Minutes, Occupational Therapy: 40 (Tomi ([id number])) 2017 OT Evaluation Code Rationale: ?? Diagnosis [...] and measurable assessment of functional outcome. Pager: [phone] Messi Dooley OT 05/21/2022 Occupational Therapy Rehabilitation [...] given. Chest tube has continuous air leak, MD aware. Leaking at chest tube insertion site, [...] Jose Manuel Salinas RN RN/CM - Cellphone: [phone] Pager: [phone] Covering Service RN/CM * Plan of Care - Mamta Mccullough RN - 05/19/2022 4:19 PM EST OUTCOME EVALUATION NOTE: OUTCOME SUMMARY: VSS BPs soft (250ml Bolus given) on 2L NC-coughing w/ mild PETERSON; denies CP/N/V; pain well managed with epidural 1-2; dressings intact no BIGHT MAKER known air leak; making adeq urine; tolerating [...] denies CP/N/V; pain well managed with epidural 1-2; dressings intact no BIGHT MAKER known air leak; making adeq urine; tolerating [...] GOAL OUTCOME EVALUATION: * Op Note - Parth Foster MD - 05/18/2022 3:42 PM EST [facility] Operative Note Patient Name: Rajan Marqeuz : [id number] MR#: [id number] Case Date: 05/18/2022 Surgeon: Surgeon(s) and Role: * Parth Foster MD - Primary * Linda Mustafa PA - Physician Groundsman * Renu Donald PA - Physician Groundsman * Morales Armas MD - Resident Preoperative [...] 10: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 [facility] surgical timeout confirmed the patient's identity and [...] muscular attachments and divided with the sliding advertising material distributor and then excised in pieces with a [...] muscular attachments and divided with the sliding advertising material distributor. This maneuverpermitted a Finochietto rib waxer tender to be placed. The remainder of the [...] sharp dissection and cautery dissection, using the Stunablea mantis device for hemostasis. We worked posteriorly [...] did appear to expand significantly. A 28 Macanese chest tube was placed thr ough the camera port and advanced to the apex of the hemithorax and secured. We assessed the defectmade by resection of the fifth and sixth ribs. Because of the concern for scapular trapping, we elected to patch this defect. 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 ? Electronically signed by: Savanah Suazo MD, [facility] ([phone]), at 06/11/2022 4:12 PM Narrative 06/11/2022 4:12 [...] patients who have questions please contactthe health medicare compliance auditor that requested your imaging first. Parth Foster MD IMG DX ORDERABLE S * [...] who have questions please contact the health medicare compliance auditor that requested your imaging first. ? Electronically signed by: Marcus Edwards MD, [facility] ([phone]), at 05/24/2022 10:06 AM Narrative 05/24/2022 10:06 [...] patients who have questions please contactthe health medicare compliance auditor that requested your imaging first. Electronically signed by: Marcus Edwards MD, [facility]([phone]), at 05/24/2022 10:06 AM Parth Foster MD IMG DX ORDERABLE S * [...] who have questions please contact the health medicare compliance auditor that requested your imaging first. ? Electronically signed by: Marcus Edwards MD, [facility] ([phone]), at 05/24/2022 8:58 AM Narrative 05/24/2022 8:58 [...] patients who have questions please contactthe health medicare compliance auditor that requested your imaging first. Electronically signed by: Marcus Edwards MD, [facility]([phone]), at 05/24/2022 8:58 AM Parth Foster MD IMG DX ORDERABLE S * Differential, Automated (05/24/2022 3:36 AM EDT) Neutrophil % 69.4 % [facility] Neutrophil Absolute 4.63 1.70 - 6.10 x10(3)/[facility] LAB[facility] Lymph % 17.4 % [facility] Lymphocytes Abs 1.2 0.9 - 3.2 x10(3)/[facility] LABOR[facility]ORY Monocyte % 11.1 % [facility] Monocyte Abs 0.7 0.3 - 0.9 x10(3)/[facility] LABOR[facility]ORY Eos % 1.3 % [facility] Eosinophils Abs 0.1 0.0 - 0.4 x10(3)/[facility] LABOR[facility]ORY Basophil % 0.7 % [facility] Baso Absolute 0.0 0.0 - 0.1 x10(3)/[facility] LABORATORY Immature Gran % 0.10 % [facility] Comment: Immature granulocytes(IG's)percentage and absolute count will include metamyelocytes, myelocytes, and promyelocytes. Blood smears from CBCs yielding IG's will be scanned manually for concordance. If this scan disagrees with the automated IG or if promyelocytes are noted, a manual differential will be performed. Immature Gran Absolute 0.01 0.00 - 0.04 x10(3)/[facility] LABOR[facility] Blood 05/24/2022 3:36 AM EDT 05/24/2022 4:02 AM EDT Narrative Resulting Agency Comment Spec In Lab Morales Armas MD HEMATOLOGY ORDERABLE S [facility] [place] [address] * (ABNORMAL) Hemogram (05/24/2022 3:36 AM EDT) White Blood Cell 6.7 4.0 - 9.5 x10(3)/mc L [facility] Red Blood Cell 3.10(L) 4.58 - 5.54 x10(6)/mc [facility] Hemoglobin 8.1(L) 13.7 - 16.5 g/dL [facility] Hematocrit 25.8(L) 40.5 - 48.5 % [facility] Mean Cell Volume 83.2 82.9 - 93.1 fL [facility] Mean Cell Hemoglobin 26.1(L) 27.5 - 32.1 pg [facility] Mean Cell Hemoglobin Concentration 31.4(L) 32.0 - 35.7 g/dL [facility] Platelet 262 145 - 357 x10(3)/[facility] LABORATORY RDW Standard Deviation 54.4(H) 36.0 - 45.0 fL [facility] RDW coefficient of variation 18.2(H) 11.4 - 13.8 % [facility] Mean Platelet Volume 8.3 7.6 - 12.9 fL [facility] NRBC% auto 0.0 % [facility] NRBC Absolute 0.000 0.000 - 0.000 x10(3)/ L [facility] Blood 05/24/2022 3:36 AM EDT 05/24/2022 4:02 AM EDT Narrative Resulting Agency Comment Spec In Lab Morales Armas MD HEMATOLOGY ORDERABLE S [facility] [place] [address] * (ABNORMAL) Basic Metabolic Panel (non-fasting) (05/24/2022 3:36 AM EDT) Glucose 99 65 - 199 mg/dL [facility] Comment:Diabetes: >=200 mg/d L plus symptoms Blood Urea Nitrogen 18 10 - 20 mg/dL [facility] Creatinine 0.91 0.80 - 1.50 mg/dL [facility] Sodium 138 135 - 145 mmol/L [facility] Potassium 3.6 3.5 - 5.0 mmol/L [facility] Comment: Please note: ??Patients with WBC >100,000 may have falsely elevated Potassium levels. ??For accurate Potassium quantification in these patients send serum separator tube (gold top) for subsequent determinations. ??Contact the Clinical Chemistry Laboratory if there are any questions. Chloride 104 98 - 107 mmol/L [facility] Carbon Dioxide 25 22 - 31 mmol/L [facility] Anion Gap 9 5 - 15 mmol/L [facility] Calcium 8.3(L) 8.5 - 10.5 mg/dL [facility] Est Glomerular Filtration Rate 90 >=60 mL/min/1. 73 m?? [facility] Comment: This patient's estimated GFR [...] Narrative Resulting Agency Comment Spec In Lab Parth Foster MD CHEMISTRY CARMEN GALINDO [facility] [place] [place] [address] * XR Chest PA & Lateral (Generic) [...] who have questions please contact the health medicare compliance auditor that requested your imaging first. ? Electronically signed by: Philip Church MD, [facility] ([phone]), at 05/23/2022 7:33 AM Narrative 05/23/2022 7:33 [...] patients who have questions please contactthe health medicare compliance auditor that requested your imaging first. Parth Foster MD IMG DX ORDERABLE S * Differential, Automated (05/23/2022 3:52 AM EDT) Neutrophil % 69.8 % [facility] [facility] Neutrophil Absolute 4.74 1.70 - 6.10 x10(3)/[facility] LABORATORY Lymph % 18.7 % [facility] Lymphocytes Abs 1.3 0.9 - 3.2 x10(3)/[facility] LABORATORY Monocyte % 10.2 % [facility] Monocyte Abs 0.7 0.3 - 0.9 x10(3)/[facility] LABORATORY Eos % 0.6 % [facility] Eosinophils Abs 0.0 0.0 - 0.4 x10(3)/[facility] LABORATORY Basophil % 0.4 % [facility] Baso Absolute 0.0 0.0 - 0.1 x10(3)/[facility] LABORATORY Immature Gran % 0.30 % [facility] Comment: Immature granulocytes(IG's)percentage and absolute count will include metamyelocytes, myelocytes, and promyelocytes. Blood smears from CBCs yielding IG's will be scanned manually for concordance. If this scan disagrees with the automated IG or if promyelocytes are noted, a manual differential will be performed. Immature Gran Absolute 0.02 0.00 - 0.04 x10(3)/[facility] LABORATORY Blood 05/23/2022 3:52 AM EDT 05/23/2022 4:08 AM EDT Narrative Resulting Agency Comment Spec In Lab Morales Armas MD HEMATOLOGY ORDERABLE S [facility] [place] [address] * (ABNORMAL) Hemogram (05/23/2022 3:52 AM EDT) White Blood Cell 6.8 4.0 - 9.5 x10(3)/mc L [facility] Red Blood Cell 3.13(L) 4.58 - 5.54 x10(6)/mc L [facility] Hemoglobin 8.2(L) 13.7 - 16.5 g/dL [facility] Hematocrit 26.5(L) 40.5 - 48.5 % [facility] Mean Cell Volume 84.7 82.9 - 93.1 fL [facility] Mean Cell Hemoglobin 26.2(L) 27.5 - 32.1 pg [facility] Mean Cell Hemoglobin Concentration 30.9(L) 32.0 - 35.7 g/dL [facility] Platelet 256 145 - 357 x10(3)/mc L [facility] RDW Standard Deviation 55.4(H) 36.0 - 45.0 fL [facility] RDW coefficient of variation 17.9(H) 11.4 - 13.8 % [facility] Mean Platelet Volume 8.3 7.6 - 12.9 fL [facility] NRBC% auto 0.0 % [facility] NRBC Absolute 0.000 0.000 - 0.000 x10(3)/mc L [facility] Blood 05/23/2022 3:52 AM EDT 05/23/2022 4:08 AM EDT Narrative Resulting Agency Comment Spec In Lab Morales Armas MD HEMATOLOGY ORDERABLE S [facility] [place] [address] * Basic Metabolic Panel (non-fasting) (05/23/2022 3:52 AM EDT) Glucose 99 65 - 199 mg/dL [facility] Comment:Diabetes: >=200 mg/d L plus symptoms Blood Urea Nitrogen 14 10 - 20 mg/dL [facility] Creatinine 0.94 0.80 - 1.50 mg/dL [facility] Sodium 135 135 - 145 mmol/L [facility] Potassium 3.6 3.5 - 5.0 mmol/L [facility] Comment: Please note: ??Patients with WBC >100,000 may have falsely elevated Potassium levels. ??For accurate Potassium quantification in these patients send serum separator tube (gold top) for subsequent determinations. ??Contact the Clinical Chemistry Laboratory if there are any questions. Chloride 100 98 - 107 mmol/L [facility] Carbon Dioxide 27 22 - 31 mmol/L [facility] Anion Gap 8 5 - 15 mmol/L [facility] Calcium 8.6 8.5 - 10.5 mg/dL [facility] Est Glomerular Filtration Rate 86 >=60 mL/min/1. 73 m?? [facility] Comment: This patient's estimated GFR [...] Narrative Resulting Agency Comment Spec In Lab Parth Foster MD CHEMISTRY ORDERA BLES Performing Organization Address City/[facility]/ZIP Co de Phone Number [facility] [place] [address] * Differential, Automated (05/22/2022 3:47 AM EDT) Neutrophil % 72.4 % [facility] Neutrophil Absolute 5.30 1.70 - 6.10 x10(3)/[facility] LABORATORY Lymph % 15.2 % [facility] Lymphocytes Abs 1.1 0.9 - 3.2 x10(3)/[facility] LABORATORY Monocyte % 11.1 % [facility] Monocyte Abs 0.8 0.3 - 0.9 x10(3)/[facility] LABORATORY Eos % 0.5 % [facility] Eosinophils Abs 0.0 0.0 - 0.4 x10(3)/[facility] LABORATORY Basophil % 0.4 % [facility] Baso Absolute 0.0 0.0 - 0.1 x10(3)/[facility] LABORATORY Immature Gran % 0.40 % [facility] Comment: Immature granulocytes(IG's)percentage and absolute count will include metamyelocytes, myelocytes, and promyelocytes. Blood smears from CBCs yielding IG's will be scanned manually for concordance. If this scan disagrees with the automated IG or if promyelocytes are noted, a manual differential will be performed. Immature Gran Absolute 0.03 0.00 - 0.04 x10(3)/[facility] LABORATORY Blood 05/22/2022 3:47 AM EDT 05/22/2022 4:15 AM EDT Narrative Resulting Agency Comment Spec In Lab Morales Armas MD HEMATOLOGY ORDERABLE S Performing Organization Address [facility] Co de Phone Number [facility] [place] [address] * (ABNORMAL) Hemogram (05/22/2022 3:47 AM EDT) White Blood Cell 7.3 4.0 - 9.5 x10(3)/mc L [facility] Red Blood Cell 2.93(L) 4.58 - 5.54 x10(6)/mc L [facility] Hemoglobin 7.6(L) 13.7 - 16.5 g/dL [facility] Hematocrit 24.3(L) 40.5 - 48.5 % [facility] Mean Cell Volume 82.9 82.9 - 93.1 fL [facility] Mean Cell Hemoglobin 25.9(L) 27.5 - 32.1 pg [facility] Mean Cell Hemoglobin Concentration 31.3(L) 32.0 - 35.7 g/dL [facility] Platelet 236 145 - 357 x10(3)/mc L [facility] RDW Standard Deviation 53.4(H) 36.0 - 45.0 fL [facility] RDW coefficient of variation 17.5(H) 11.4 - 13.8 % [facility] Mean Platelet Volume 8.6 7.6 - 12.9 fL [facility] NRBC% auto 0.0 % [facility] NRBC Absolute 0.000 0.000 - 0.000 x10(3)/ L [facility] Blood 05/22/2022 3:47 AM EDT 05/22/2022 4:15 AM EDT Narrative Resulting Agency Comment Spec In Lab Morales Armas MD HEMATOLOGY ORDERABLE S Performing Organization Address City/State/[facility] Co de Phone Number [facility] [place] [address] * Basic Metabolic Panel (non-fasting) (05/22/2022 3:47 AM EDT) Glucose 101 65 - 199 mg/dL [facility] Comment:Diabetes: >=200 mg/d L plus symptoms Blood Urea Nitrogen 14 10 - 20 mg/dL [facility] Comment:result rechecked-bm Creatinine 0.90 0.80 - 1.50 mg/dL [facility] Sodium 137 135 - 145 mmol/L [facility] Potassium 3.8 3.5 - 5.0 mmol/L [facility] Comment: Please note: ??Patients with WBC >100,000 may have falsely elevated Potassium levels. ??For accurate Potassium quantification in these patients send serum separator tube (gold top) for subsequent determinations. ??Contact the Clinical Chemistry Laboratory if there are any questions. Chloride 102 98 - 107 mmol/L [facility] Carbon Dioxide 26 22 - 31 mmol/L [facility] Anion Gap 9 5 - 15 mmol/L [facility] Calcium 8.5 8.5 - 10.5 mg/dL [facility] Est Glomerular Filtration Rate 91 >=60 mL/min/1. 73 m?? [facility] Comment: This patient's estimated GFR [...] Narrative Resulting Agency Comment Spec In Lab Parth Foster MD CHEMISTRY ORDERA [facility] [place] [address] * EKG 12 Lead (05/21/2022 7:36 AM EDT) Ventricular rate 118 BPM MUSE SYSTEM Atrial Rate 118 BPM MUSE SYSTEM P-R Interval 216 ms MUSE SYSTEM QRS Duration 106 ms MUSE SYSTEM Q-T Interval 324 ms MUSE SYSTEM QTC Calculated (Bezet) 454 ms MUSE SYSTEM Calculated R [place] 82 degrees MUSE SYSTEM Calculated T [place] -102 degrees MUSE SYSTEM INTERPRETATION Sinus tachycardia with 1st degree A-V block Minimal voltage criteria for LVH, may be normal variant ( Lambert product ) Nonspecific T wave abnormality Abnormal ECG When compared with ECG of 18-MAY-2022 08:00, (unconfirmed) Sinus rhythm has replaced Atrial flutter Incomplete left bundle block is no longer Present Confirmed by MD Stacy, Kyrie ([id number]) on 05/21/2022 1:03:09 PM MUSE SYSTEM 05/21/2022 7:36 AM EDT 05/21/2022 1:03 PM EDT Parth Foster MD ECG ORDERABLES MUSE SYSTEM * Differential, Automated (05/21/2022 4:09 AM EDT) Neutrophil % 72.4 % [facility] Neutrophil Absolute 4.83 1.70 - 6.10 x10(3)/[facility] LABORATORY Lymph % 14.5 % [facility] Lymphocytes Abs 1.0 0.9 - 3.2 x10(3)/[facility] LABORATORY Monocyte % 12.3 % [facility] Monocyte Abs 0.8 0.3 - 0.9 x10(3)/[facility] LABORATORY Eos % 0.1 % [facility] Eosinophils Abs 0.0 0.0 - 0.4 x10(3)/[facility] LABORATORY Basophil % 0.4 % [facility] Baso Absolute 0.0 0.0 - 0.1 x10(3)/[facility] LABORATORY Immature Gran % 0.30 % [facility] Comment: Immature granulocytes(IG's)percentage and absolute count will include metamyelocytes, myelocytes, and promyelocytes. Blood smears from CBCs yielding IG's will be scanned manually for concordance. If this scan disagrees with the automated IG or if promyelocytes are noted, a manual differential will be performed. Immature Gran Absolute 0.02 0.00 - 0.04 x10(3)/[facility] LABORATORY Blood 05/21/2022 4:09 AM EDT 05/21/2022 5:00 AM EDT Narrative Resulting Agency Comment Spec In Lab Morales Armas MD HEMATOLOGY ORDERABLE S [facility] [place] [address] * (ABNORMAL) Hemogram (05/21/2022 4:09 AM EDT) White Blood Cell 6.7 4.0 - 9.5 x10(3)/mc L [facility] Red Blood Cell 3.01(L) 4.58 - 5.54 x10(6)/mc L [facility] Hemoglobin 7.9(L) 13.7 - 16.5 g/dL [facility] Hematocrit 25.6(L) 40.5 - 48.5 % [facility] Mean Cell Volume 85.0 82.9 - 93.1 fL [facility] Mean Cell Hemoglobin 26.2(L) 27.5 - 32.1 pg [facility] Mean Cell Hemoglobin Concentration 30.9(L) 32.0 - 35.7 g/dL [facility] Platelet 226 145 - 357 x10(3)/mc L [facility] RDW Standard Deviation 53.6(H) 36.0 - 45.0 fL [facility] RDW coefficient of variation 17.3(H) 11.4 - 13.8 % [facility] Mean Platelet Volume 9.1 7.6 - 12.9 fL [facility] NRBC% auto 0.0 % [facility] IT[facility] LAB[facility]ATORY NRBC Absolute 0.000 0.000 - 0.000 x10(3)/ L [facility] Blood 05/21/2022 4:09 AM EDT 05/21/2022 5:00 AM EDT Narrative Resulting Agency Comment Spec In Lab Morales Armas MD HEMATOLOGY ORDERABLE S [facility] [place] [address] * (ABNORMAL) Basic Metabolic Panel (non-fasting) (05/21/2022 4:09 AM EDT) Pathologist [facility] Glucose 84 65 - 199 mg/dL [facility] Comment:Diabetes: >=200 mg/d L plus symptoms Blood Urea Nitrogen 7(L) 10 - 20 mg/dL [facility] Creatinine 0.71(L) 0.80 - 1.50 mg/dL [facility] Sodium 137 135 - 145 mmol/L [facility] Potassium 3.5 3.5 - 5.0 mmol/L [facility] Comment: Please note: ??Patients with WBC >100,000 may have falsely elevated Potassium levels. ??For accurate Potassium quantification in these patients send serum separator tube (gold top) for subsequent determinations. ??Contact the Clinical Chemistry Laboratory if there are any questions. Chloride 103 98 - 107 mmol/L [facility] Carbon Dioxide 27 22 - 31 mmol/L [facility] Anion Gap 7 5 - 15 mmol/L [facility] Calcium 8.7 8.5 - 10.5 mg/dL [facility] Est Glomerular Filtration Rate 97 >=60 mL/min/1. 73 m?? [facility] Comment: This patient's estimated GFR [...] Narrative Resulting Agency Comment Spec In Lab Parth Foster MD CHEMISTRY ORDERA [facility] [place] [address] * Differential, Automated (05/20/2022 4:08 AM EDT) Neutrophil % 74.7 % [facility] Neutrophil Absolute 5.59 1.70 - 6.10 x10(3)/[facility] LABORATORY Lymph % 12.6 % [facility] Lymphocytes Abs 0.9 0.9 - 3.2 x10(3)/[facility] LABORATORY Monocyte % 11.9 % [facility] Monocyte Abs 0.9 0.3 - 0.9 x10(3)/[facility] LABORATORY Eos % 0.0 % [facility] Eosinophils Abs 0.0 0.0 - 0.4 x10(3)/[facility] LABORATORY Basophil % 0.3 % [facility] IT[facility] LABORATORY Baso Absolute 0.0 0.0 - 0.1 x10(3)/[facility] LABORATORY Immature Gran % 0.50 % [facility] Comment: Immature granulocytes(IG's)percentage and absolute count will include metamyelocytes, myelocytes, and promyelocytes. Blood smears from CBCs yielding IG's will be scanned manually for concordance. If this scan disagrees with the automated IG or if promyelocytes are noted, a manual differential will be performed. Immature Gran Absolute 0.04 0.00 - 0.04 x10(3)/[facility] LABORATORY Blood 05/20/2022 4:08 AM EDT 05/20/2022 4:48 AM EDT Narrative Resulting Agency Comment Spec In Lab Morales Armas MD HEMATOLOGY ORDERABLE S [facility] [place] [address] * (ABNORMAL) Hemogram (05/20/2022 4:08 AM EDT) White Blood Cell 7.5 4.0 - 9.5 x10(3)/mc L [facility] Red Blood Cell 3.07(L) 4.58 - 5.54 x10(6)/mc L [facility] Hemoglobin 8.0(L) 13.7 - 16.5 g/dL [facility] Hematocrit 25.9(L) 40.5 - 48.5 % [facility] Mean Cell Volume 84.4 82.9 - 93.1 fL [facility] Mean Cell Hemoglobin 26.1(L) 27.5 - 32.1 pg [facility] Mean Cell Hemoglobin Concentration 30.9(L) 32.0 - 35.7 g/dL [facility] Platelet 207 145 - 357 x10(3)/mc L [facility] RDW Standard Deviation 53.7(H) 36.0 - 45.0 fL [facility] RDW coefficient of variation 17.4(H) 11.4 - 13.8 % [facility] Mean Platelet Volume 8.7 7.6 - 12.9 fL [facility] NRBC% auto 0.0 % [facility] ITAL LAB[facility]AT[facility] NRBC Absolute 0.000 0.000 - 0.000 x10(3)/mc L [facility] Blood 05/20/2022 4:08 AM EDT 05/20/2022 4:48 AM EDT Narrative Resulting Agency Comment Spec In Lab Morales Armas MD HEMATOLOGY ORDERABLE S [facility] [address] [facility] [place] [address] * (ABNORMAL) Basic Metabolic Panel (non-fasting) (05/20/2022 4:08 AM EDT) Glucose 99 65 - 199 mg/dL [facility] Comment:Diabetes: >=200 mg/d L plus symptoms Blood Urea Nitrogen 11 10 - 20 mg/dL [facility] Creatinine 0.79(L) 0.80 - 1.50 mg/dL [facility] Sodium 133(L) 135 - 145 mmol/L [facility] Potassium 3.8 3.5 - 5.0 mmol/L [facility] Comment: Please note: ??Patients with WBC >100,000 may have falsely elevated Potassium levels. ??For accurate Potassium quantification in these patients send serum separator tube (gold top) for subsequent determinations. ??Contact the Clinical Chemistry Laboratory if there are any questions. Chloride 102 98 - 107 mmol/L [facility] Carbon Dioxide 23 22 - 31 mmol/L [facility] Anion Gap 8 5 - 15 mmol/L [facility] Calcium 8.3(L) 8.5 - 10.5 mg/dL [facility] Est Glomerular Filtration Rate 94 >=60 mL/min/1. 73 m?? [facility] Comment: This patient's estimated GFR [...] Narrative Resulting Agency Comment Spec In Lab Parth Foster MD CHEMISTRY CARMEN GALINDO [facility] [place] [address] * XR Chest PA & Lateral (Generic) [...] who have questions please contact the health medicare compliance auditor that requested your imaging first. ? Narrative 05/19/2022 11:16 AM EST EXAMINATION: XR [...] patients who have questions please contactthe health medicare compliance auditor that requested your imaging first. Parth Foster MD IMG DX ORDERABLE S * (ABNORMAL) Differential, Automated (05/19/2022 3:31 AM EST) Neutrophil % 80.9 % [facility] Neutrophil Absolute 8.95(H) 1.70 - 6.10 x10(3)/mc L [facility] Lymph % 9.3 % [facility] Lymphocytes Abs 1.0 0.9 - 3.2 x10(3)/mc L [facility] Monocyte % 9.2 % [facility] Monocyte Abs 1.0(H) 0.3 - 0.9 x10(3)/mc L [facility] Eos % 0.0 % [facility] Eosinophils Abs 0.0 0.0 - 0.4 x10(3)/mc L [facility] Basophil % 0.1 % [facility] Baso Absolute 0.0 0.0 - 0.1 x10(3)/mc L [facility] Immature Gran % 0.50 % [facility] Comment: Immature granulocytes(IG's)percentage and absolute count will include metamyelocytes, myelocytes, and promyelocytes. Blood smears from CBCs yielding IG's will be scanned manually for concordance. If this scan disagrees with the automated IG or if promyelocytes are noted, a manual differential will be performed. Immature Gran Absolute 0.05(H) 0.00 - 0.04 x10(3)/mc L [facility] Blood 05/19/2022 3:31 AM EST 05/19/2022 3:56 AM EST Narrative Resulting Agency Comment Spec In Lab Morales Armas MD HEMATOLOGY ORDERABLE S [facility] [place] [address] * (ABNORMAL) Hemogram (05/19/2022 3:31 AM EST) White Blood Cell 11.1(H) 4.0 - 9.5 x10(3)/mc L [facility] Red Blood Cell 3.23(L) 4.58 - 5.54 x10(6)/ L [facility] Hemoglobin 8.5(L) 13.7 - 16.5 g/dL [facility] Hematocrit 26.8(L) 40.5 - 48.5 % [facility] Mean Cell Volume 83.0 82.9 - 93.1 fL [facility] Mean Cell Hemoglobin 26.3(L) 27.5 - 32.1 pg [facility] Mean Cell Hemoglobin Concentration 31.7(L) 32.0 - 35.7 g/dL [facility] Platelet 245 145 - 357 x10(3)/mc L [facility] RDW Standard Deviation 52.6(H) 36.0 - 45.0 fL [facility] RDW coefficient of variation 17.3(H) 11.4 - 13.8 % [facility] Mean Platelet Volume 8.4 7.6 - 12.9 fL [facility] NRBC% auto 0.0 % [facility] ITAL [facility] NRBC Absolute 0.000 0.000 - 0.000 x10(3)/mc L [facility] Blood 05/19/2022 3:31 AM EST 05/19/2022 3:56 AM EST Narrative Resulting Agency Comment Spec In Lab Morales Armas MD HEMATOLOGY ORDERABLE S [facility] [place] [address] * Basic Metabolic Panel (non-fasting) (05/19/2022 3:31 AM EST) Glucose 111 65 - 199 mg/dL [facility] Comment:Diabetes: >=200 mg/d L plus symptoms Blood Urea Nitrogen 13 10 - 20 mg/dL [facility] Creatinine 0.93 0.80 - 1.50 mg/dL [facility] Sodium 135 135 - 145 mmol/L [facility] Potassium 4.8 3.5 - 5.0 mmol/L [facility] Comment: Please note: ??Patients with WBC >100,000 may have falsely elevated Potassium levels. ??For accurate Potassium quantification in these patients send serum separator tube (gold top) for subsequent determinations. ??Contact the Clinical Chemistry Laboratory if there are any questions. Chloride 102 98 - 107 mmol/L [facility] Carbon Dioxide 24 22 - 31 mmol/L [facility] Anion Gap 9 5 - 15 mmol/L [facility] Calcium 8.5 8.5 - 10.5 mg/dL [facility] Est Glomerular Filtration Rate 87 >=60 mL/min/1. 73 m?? [facility] Comment: This patient's estimated GFR [...] Narrative Resulting Agency Comment Spec In Lab Parth Foster MD CHEMISTRY CARMEN GALINDO [facility] [place] [address] * XR Chest One View (05/18/2022 4:01 [...] who have questions please contact the health medicare compliance auditor that requested your imaging first. ? Electronically signed by: Mayrann Magallanes MD, [facility] ([phone]), at 05/18/2022 4:02 PM Narrative 05/18/2022 4:02 [...] patients who have questions please contactthe health medicare compliance auditor that requested your imaging first. Parth Foster MD IMG DX ORDERABLE S * (ABNORMAL) Differential, Automated (05/18/2022 2:18 PM EST) Neutrophil % 85.2 % [facility] Neutrophil Absolute 9.74(H) 1.70 - 6.10 x10(3)/mc L [facility] Lymph % 7.3 % [facility] Lymphocytes Abs 0.8(L) 0.9 - 3.2 x10(3)/mc L [facility] Monocyte % 6.8 % [facility] Monocyte Abs 0.8 0.3 - 0.9 x10(3)/mc L [facility] Eos % 0.2 % [facility] Eosinophils Abs 0.0 0.0 - 0.4 x10(3)/mc L [facility] Basophil % 0.2 % [facility] Baso Absolute 0.0 0.0 - 0.1 x10(3)/mc L [facility] Immature Gran % 0.30 % [facility] Comment: Immature granulocytes(IG's)percentage and absolute count will include metamyelocytes, myelocytes, and promyelocytes. Blood smears from CBCs yielding IG's will be scanned manually for concordance. If this scan disagrees with the automated IG or if promyelocytes are noted, a manual differential will be performed. Immature Gran Absolute 0.04 0.00 - 0.04 x10(3)/mc L [facility] Blood 05/18/2022 2:18 PM EST 05/18/2022 2:30 PM EST Narrative Resulting Agency Comment Spec In Lab Morales Armas MD HEMATOLOGY ORDERABLE S [facility] [place] [address] * (ABNORMAL) Hemogram (05/18/2022 2:18 PM EST) White Blood Cell 11.4(H) 4.0 - 9.5 x10(3)/mc L [facility] Red Blood Cell 3.19(L) 4.58 - 5.54 x10(6)/mc L [facility] Hemoglobin 8.4(L) 13.7 - 16.5 g/dL [facility] Hematocrit 26.5(L) 40.5 - 48.5 % [facility] Mean Cell Volume 83.1 82.9 - 93.1 fL [facility] Mean Cell Hemoglobin 26.3(L) 27.5 - 32.1 pg [facility] Mean Cell Hemoglobin Concentration 31.7(L) 32.0 - 35.7 g/dL [facility] Platelet 289 145 - 357 x10(3)/mc L [facility] RDW Standard Deviation 52.3(H) 36.0 - 45.0 fL [facility] RDW coefficient of variation 17.2(H) 11.4 - 13.8 % [facility] Mean Platelet Volume 8.4 7.6 - 12.9 fL [facility] NRBC% auto 0.0 % [facility] NRBC Absolute 0.000 0.000 - 0.000 x10(3)/mc L [facility] Blood 05/18/2022 2:18 PM EST 05/18/2022 2:30 PM EST Narrative Resulting Agency Comment Spec In Lab Morales Armas MD HEMATOLOGY ORDERABLE S Performing Organization Address City/[facility]/ZIP Co de Phone Number [facility] [place] [address] * (ABNORMAL) Basic Metabolic Panel (non-fasting) (05/18/2022 2:18 PM EST) Glucose 117 65 - 199 mg/dL [facility] Comment:Diabetes: >=200 mg/d L plus symptoms Blood Urea Nitrogen 15 10 - 20 mg/dL [facility] Creatinine 0.96 0.80 - 1.50 mg/dL [facility] Sodium 138 135 - 145 mmol/L [facility] Potassium 4.4 3.5 - 5.0 mmol/L [facility] Comment: Please note: ??Patients with WBC >100,000 may have falsely elevated Potassium levels. ??For accurate Potassium quantification in these patients send serum separator tube (gold top) for subsequent determinations. ??Contact the Clinical Chemistry Laboratory if there are any questions. Chloride 106 98 - 107 mmol/L [facility] Carbon Dioxide 22 22 - 31 mmol/L [facility] Anion Gap 10 5 - 15 mmol/L [facility] Calcium 8.3(L) 8.5 - 10.5 mg/dL [facility] Est Glomerular Filtration Rate 84 >=60 mL/min/1. 73 m?? [facility] Comment: This patient's estimated GFR [...] Narrative Resulting Agency Comment Spec In Lab Parth Foster MD CHEMISTRY ORDERA JOSIE [facility] [place] [address] * Type and Screen Validity (05/18/2022 1:37 PM EST) T&S only valid at [facility] Comment:This Type and Screen result is only valid at the [facility] Blood 05/18/2022 1:37 PM EST 05/18/2022 1:48 PM EST Narrative Resulting Agency Comment Spec In Lab Parth Foster MD BLOOD BANK LAB O RDERABLES Performing Organization Address City/[facility]/ZIP Co de Phone Number [facility] [place] [address] * ABORH Recheck Status (05/18/2022 1:37 PM EST) ABORH Recheck Order Order Placed [facility] ABORH Type Recheck Complete [facility] Blood 05/18/2022 1:37 PM EST 05/18/2022 1:48 PM EST Narrative Resulting Agency Comment Spec In Lab Parth Foster MD BLOOD BANK LAB O RDERABLES Performing Organization Address [facility] Co de Phone Number [facility] [place] [address] * Antibody screen (05/18/2022 1:37 PM EST) Ab Screen Interp Negative [facility] Expires at [id number] on: 05/21/2022 [facility] Blood 05/18/2022 1:37 PM EST 05/18/2022 1:48 PM EST Narrative Resulting Agency Comment Spec In Lab Parth Foster MD BLOOD BANK LAB O RDERABLES Performing Organization Address City/[facility]/ZIP Co de Phone Number [facility] [place] [address] * ABO/Rh Typing (05/18/2022 1:37 PM EST) ABORH Type A Pos [facility] Blood 05/18/2022 1:37 PM EST 05/18/2022 1:48 PM EST Narrative Resulting Agency Comment Spec In Lab Parth Foster MD BLOOD BANK LAB O RDERABLES [facility] [place] [address] * (ABNORMAL) BLOOD GAS 2 ARTERIAL (05/18/2022 12:41 PM EST) pH, Arterial 7.34(L) 7.35 - 7.45 [facility] PCO2, Arterial 42 35 - 45 mmHg [facility] PO2, Arterial 290(H) 85 - 104 mmHg [facility] Bicarbonate, Arterial 22.2 20.0 - 26.0 mmol/L [facility] Base Excess, Arterial -3.5(L) -3.0 - 3.0 mmol/L [facility] Hgb Blood Gas 9.2(L) 13.7 - 16.5 g/dL [facility] Oxyhemoglobin, Arterial 98.5(H) 94.0 - 97.0 % [facility] Carboxyhemoglob in, Arterial 1.2 % [facility] Comment: Nonsmokers: 0.5-1.5% COHB Smokers: Variable, but usually less than 10% Toxic: 20-30% COHB Lethal: Greater than 60% COHB Methemoglobin, Arterial 0.3 <=1.5 % [facility] Na Whole Blood 133(L) 135 - 145 mmol/L [facility] K Whole Blood 4.2 3.5 - 5.0 mmol/L [facility] Comment: Please note: Patients with WBC >100,000 may have falsely elevated Potassium levels. Contact the Clinical Chemistry Laboratory if there are any questions. ICa Whole Blood 1.16 1.15 - 1.33 mmol/L [facility] Comment: Note: ??Total bilirubin higher than 20 mg/dL may lead to falsely low ionized calcium. CL Whole Blood 104 98 - 107 mmol/L [facility] Gluc Whole Bld 130 65 - 199 mg/dL [facility] Comment:Diabetes: >=200 mg/d L plus symptoms. Lactate WB 1.0 0.5 - 2.2 mmol/L [facility] FIO2 Art 50 % [facility] Flow Art 1.0 LPM [facility] PF Ratio Art 580 [facility] Blood 05/18/2022 12:4 1 PM EST 05/18/2022 12:41 PM EST Parth Foster MD POINT OF CARE TE ST ORDERABLES [facility] [place] [address] * Specimen to Pathology (05/18/2022 11:21 AM EST) AP Specimen 05/18/2022 11:2 1 AM EST 05/18/2022 11:21 AM EST Narrative [facility] - 05/18/2022 11:21 AM EST Specimen requisition ordered. ??Separate Pathology report to follow Parth Foster MD PATHOLOGY/CYTOLO GY ORDERABLES Performing Organization Address City/[facility]/ZIP Co de Phone Number [facility] [place] [address] * Specimen to Pathology (05/18/2022 10:56 AM EST) AP Specimen 05/18/2022 10:5 6 AM EST 05/18/2022 10:56 AM EST Narrative [facility] - 05/18/2022 10:56 AM EST Specimen requisition ordered. ??Separate Pathology report to follow Parth Foster MD PATHOLOGY/CYTOLO GY ORDERABLES Performing Organization Address [facility] [place] [address] * Specimen to Pathology (05/18/2022 10:37 AM EST) AP Specimen 05/18/2022 10:3 7 AM EST 05/18/2022 10:37 AM EST Narrative [facility] - 05/18/2022 10:37 AM EST Specimen requisition ordered. ??Separate Pathology report to follow Parth Foster MD PATHOLOGY/CYTOLO GY ORDERABLES Performing Organization Address City/[facility] Co de Phone Number [facility] [place] [address] * Specimen to Pathology (05/18/2022 10:36 AM EST) AP Specimen 05/18/2022 10:3 6 AM EST 05/18/2022 10:36 AM EST Narrative [facility] - 05/18/2022 10:36 AM EST Specimen requisition ordered. ??Separate Pathology report to follow Parth Foster MD PATHOLOGY/CYTOLO GY ORDERABLES Performing Organization Address [facility] Co de Phone Number [facility] [place] [address] * Specimen to Pathology (05/18/2022 10:36 AM EST) AP Specimen 05/18/2022 10:3 6 AM EST 05/18/2022 10:36 AM EST Narrative [facility] - 05/18/2022 10:36 AM EST Specimen requisition ordered. ??Separate Pathology report to follow Parth Foster MD PATHOLOGY/CYTOLO GY ORDERABLES Performing Organization Address [facility] Co de Phone Number [facility] [place] [address] * Anaerobic Culture (05/18/2022 10:35 AM EST) Anaerobic Culture No anaerobic organisms isolated [facility] Lung 05/18/2022 10:3 5 AM EST 05/18/2022 2:17 PM EST Comment:Left pleural grumous Narrative Resulting Agency Comment Spec In Lab Parth Foster MD MICROBIOLOGY - G ENERAL ORDERABLES Performing Organization Address [facility] Co de Phone Number [facility] [place] [address] * Tissue culture (05/18/2022 10:35 AM EST) Tissue Culture No growth [facility] Gram Stain Few Neutrophils seen No microorganisms seen. [facility] Lung 05/18/2022 10:3 5 AM EST 05/18/2022 2:17 PM EST Comment:Left pleural grumous Narrative Resulting Agency Comment Spec In Lab Parth Foster MD MICROBIOLOGY - G ENERAL ORDERABLES Performing Organization Address [facility] Co de Phone Number [facility] [place] [address] * Surgical Pathology Report (05/18/2022 10:19 AM EST) Final Diagnosis [id number] ? Location: [id number]; 0326; B The signing [...] evidence of malignancy. Electronically signed by: ?MD Stephna, Dov Soriano Verified: ??06/04/2022 14:52 ??Pathologist Performed at: ??-[facility] Dept. of Pathology, [place] [address] Groundsman: Maria Ines Marrufo MD, FCAP, ??CLIA Certificate: [id number] SPECIMEN(S) SUBMITTED A - Left pleural rind, [...] tissue is submitted for frozen section: A1. [place] [employer] Work[employer] sections in 3 cassettes as follows: ?A1: ??Frozen section remnant ?A2-A3: ??[place] [employer] sections B - Labeled/Fixative: Left pleural grumous, fresh. Quantity/Size: Fragments, 7.0 x 5.0 x 1.0 cm in aggregate. Tissue Description: Multiple soft rubbery fragments of white tissue. Sections/Processin g: [place] Work[employer] sections in 2 cassettes labeled B1-B2. C - Labeled/Fixative: Visceral pleural rind. Frozen, fresh for frozen section. Quantity/Size: Single, 2.7 x 1.9 x 0.2 cm. Tissue Description: Serrato-white membranous soft tissue. Sections/Processin g: The following tissue is submitted for frozen section: C1. [place] Work[employer] sections in 2 cassettes as follows: ?C1: ??Frozen section remnant ?C2: ??[place] Work[employer] sections D - Labeled/Fixative: Fragments of rib, fresh. Quantity/Size: Fragments, 9.0 x 9.0 x 2.0 cm in aggregate. Tissue Description: Multiple fragments of rib and surrounding connective tissue. Sections/Processin g: Blocks submitted for decalcification: D1. [place] Work[employer] sections in 1 cassette labeled D1. E - Labeled/Fixative: Left parietal pleural rind, fresh. Quantity/Size: Fragments, 12.5 x 12.5 x 2.0 cm in aggregate. Tissue Description: Multiple fragments of firm rubbery serrato-white tissue with surrounding adipose tissue. Sections/Processin g: [place] Work[employer] sections in 2 cassettes labeled E1-E2. F - Labeled/Fixative: Left visceral pleural rind, fresh. Quantity/Size: Fragments, 9.0 x 5.0 x 2.0 cm in aggregate. Tissue Description: Fragments of firm rubbery serrato-white tissue. Sections/Processin g: [place] Work[employer] sections in 2 cassettes labeled F1-F2. ??jnk ?Frozen Section FROZEN SECTION DIAGNOSIS CFS - VISCERAL PLEURAL RIND. FROZEN, excision ?for frozen section Inflamed ??pleura, no evidence of malignancy (route sales representative sample) 05/18/22 11:27 Electronically signed by: ?Malia Lacy MD Verified: ??05/18/2022 11:29 ??Pathologist Performed at: ??-[facility] Dept. of Pathology, [place] [address] Groundsman: Maria Ines Marrufo MD, FCAP, ??CLIA Certificate: [id number] This intraoperative consultation should be interpreted as [...] MD Verified: ??05/18/2022 11:25 ??Pathologist Performed at: ??-[facility] Dept. of Pathology, [place] [address] Groundsman: Maria Ines Marrufo MD, FCAP, ??CLIA Certificate: [id number] This intraoperative consultation should be interpreted as [...] 9 AM EST 05/18/2022 10:19 AM EST Parth Foster MD PATHOLOGY/CYTOLO GY ORDERABLES [facility] [place] [address] [facility] [address] * Specimen to Pathology (05/18/2022 10:19 AM EST) AP Specimen 05/18/2022 10:1 9 AM EST 05/18/2022 10:19 AM EST Narrative [facility] - 05/18/2022 10:19 AM EST Specimen requisition ordered. ??Separate Pathology report to follow Parth Foster MD PATHOLOGY/CYTOLO GY ORDERABLES Performing Organization Address City/[facility]/ZIP Co de Phone Number [facility] [place] [address] * (ABNORMAL) BLOOD GAS 2 ARTERIAL (05/18/2022 10:17 AM EST) pH, Arterial 7.36 7.35 - 7.45 [facility] PCO2, Arterial 42 35 - 45 mmHg [facility] PO2, Arterial 226(H) 85 - 104 mmHg [facility] Bicarbonate, Arterial 22.9 20.0 - 26.0 mmol/L [facility] Base Excess, Arterial -2.6 -3.0 - 3.0 mmol/L [facility] Hgb Blood Gas 9.5(L) 13.7 - 16.5 g/dL [facility] Oxyhemoglobin, Arterial 98.5(H) 94.0 - 97.0 % [facility] Carboxyhemoglob in, Arterial 1.0 % [facility] Comment: Nonsmokers: 0.5-1.5% COHB Smokers: Variable, but usually less than 10% Toxic: 20-30% COHB Lethal: Greater than 60% COHB Methemoglobin, Arterial 0.3 <=1.5 % [facility] Na Whole Blood 133(L) 135 - 145 mmol/L [facility] K Whole Blood 3.8 3.5 - 5.0 mmol/L [facility] Comment: Please note: Patients with WBC >100,000 may have falsely elevated Potassium levels. Contact the Clinical Chemistry Laboratory if there are any questions. ICa Whole Blood 1.18 1.15 - 1.33 mmol/L [facility] Comment: Note: ??Total bilirubin higher than 20 mg/dL may lead to falsely low ionized calcium. CL Whole Blood 104 98 - 107 mmol/L [facility] Gluc Whole Bld 107 65 - 199 mg/dL [facility] Comment:Diabetes: >=200 mg/d L plus symptoms. Lactate WB 1.5 0.5 - 2.2 mmol/L [facility] Blood 05/18/2022 10:1 7 AM EST 05/18/2022 10:17 AM EST Parth Foster MD POINT OF CARE TE ST ORDERABLES Performing Organization Address City/State/[facility] Co de Phone Number [facility] [place] [phone] * XR Fluoro No Rad <1Hr - OR Use (05/18/2022 9:16 AM EST) Narrative Dicom, Auditing User - 05/18/2022 9:17 AM EST This exam is auto-finalizing. No interpretation was done. Parth Foster MD IMG FLUORO ORDER PHILOMENA * EKG 12 Lead (05/18/2022 8:00 AM EST) Ventricular rate 115 BPM MUSE SYSTEM P-R Interval 176 ms MUSE SYSTEM QRS Duration 106 ms MUSE SYSTEM Q-T Interval 356 ms MUSE SYSTEM QTC Calculated (Bezet) 492 ms MUSE SYSTEM Calculated P [place] 106 degrees MUSE SYSTEM Calculated R [place] 71 degrees MUSE SYSTEM Calculated T [place] -169 degrees MUSE SYSTEM INTERPRETATION Atrial flutter Non-specific intra-ventricular conduction delay Minimal voltage criteria for LVH, may be normal variant ( Yash product ) Nonspecific ST and T wave abnormality Abnormal ECG When compared with ECG of 21-FEB-2022 06:21, No significant change was found I personally reviewed the tracing and edited the fellows interpretation Confirmed by fellow Rudi Guzmán ([id number]) on 05/21/2022 4:25:34 AM Confirmed by MD RUST SALVATORE ([id number]) on 05/21/2022 10:56:00 AM MUSE SYSTEM 05/18/2022 8:00 AM EST 05/21/2022 10:56 AM EDT Parth Foster MD ECG ORDERABLES MUSE SYSTEM * POCT Glucose (05/18/2022 7:29 AM EST) Glucose, POC 93 65 - 199 mg/dL [facility] Comment: Supplemental ranges: <140 mg/dL before meals <180 mg/dL all other times of the day Blood 05/18/2022 7:29 AM EST 05/18/2022 7:29 AM EST Parth Foster MD POINT OF CARE TE ST ORDERABLES [facility] [place] [address] documented in this encounter 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 Other postprocedural status Atrial fibrillation, unspecified type Tachycardia Tachycardia, unspecified Status post lung surgery Other postprocedural status Status post lobectomy of lung Other postprocedural status Status post lung surgery [...] Given 05/24/2022 12:30 AM EDT 1,000 mg albuteroL (Proventil, Ventolin) (2.5 mg/3 mL) [...] Given 05/23/2022 5:05 PM EDT 100 mg hydrOXYchloroQUINE (Plaquenil) tablet 200 mg 200 mg, Oral, DAILY, First dose on Sat05/19/22 at 0900, Until Discontinued, Routine Given 05/24/2022 9:02 AM EDT 200 mg Given 05/23/2022 10:14 AM EDT 200 mg Given 05/22/2022 9:38 AM EDT 200 mg ibuprofen (Advil) tablet 600 mg 600 mg, Oral, EVERY 6 HOURS PRN, Starting on Stephanie 05/24/22 at 0902, Until Sat05/24/22 at 1701, Pain, Administer orally with milk or food to minimize GI irritation. Maximum dose of 3,200 mg from all sources in 24 hours, Routine metoproloL tartrate (Lopressor) tablet 25 mg 25 mg, Oral, EVERY 12 HOURS SCHEDULED (2 times per day), First dose on Sat05/21/22 at 0915, Until Discontinued, Routine Given 05/24/2022 9:01 AM EDT 25 mg Given 05/23/2022 9:32 PM EDT 25 mg Given 05/23/2022 10:14 AM EDT 25 mg ondansetron (pf) (Zofran) (2 mg/mL) injection 4 mg 4 mg, Intravenous, EVERY 8 HOURS PRN, Starting on Sat05/19/22 at 1149, Until Sat05/24/22 at 1701, Nausea Given 05/22/2022 7:44 AM EDT 4 mg Given 05/20/2022 11:50 AM EDT 4 mg oxyCODONE (Roxicodone) tablet 5 mg 5 mg, Oral, EVERY 6 HOURS PRN, Starting on Sat05/24/22 at 0902, Until Sat05/24/22 at 1701, Pain, Routine prochlorperazine (Compazine) (5 mg/mL) injection 10 mg 10 mg, Intravenous, EVERY 6 HOURS PRN, Starting on Sat05/22/22 at 1345, Until Sat05/24/22 at 1701, Nausea, Routine Given 05/22/2022 2:03 PM EDT 10 mg senna (Senokot) tablet 17.2 mg 17.2 mg, Oral, EVERY EVENING, First dose on Sat05/19/22 at 1700, Until Discontinued, Routine Given 05/23/2022 [...] - Provider: Raquel Hoffmann)1201 (Given - Provider: Deysi Motta RN) albuteroL (Proventil, Ventolin) (2.5 mg/3 mL) (0.083 %) nebulizer solution 2.5 mg 2.5 mg, Nebulization, EVERY 6 HOURS, First dose on Sat05/18/22 at 2000, Until Discontinued, Routine 0200 (Not Given - Provider: Devorah Rivera RN - Reason: Patient/family refused)0750 (Given - Provider: Maribell Farias RN)1403 (Given - Provider: Maribell Farias RN)2142 (Given - Provider: Snadro Newton RN) 0557 (Given - Provider: Sandro Newton RN)1309 (Given - Provider: Maribell Farias RN)1706 (Given - Provider: Maribell Farias RN) 0031 (Given - Provider: Raquel Hoffmann)0545 (Given - Provider: Raquel Hoffmann)1201 (Given - Provider: Deysi Motta RN) AMIOdarone (Paceron) tablet 200 mg 200 mg, Oral, DAILY, First dose on Sat05/19/22 at 0900, Until Discontinued, Routine 0938 (Given - Provider: Marbiell Farias RN) 1014 (Given - Provider: Maribell Farias RN) 0901 (Given - Provider: Deysi Motta RN) buPROPion (Wellbutrin) tablet 150 mg 150 mg, Oral, DAILY, First dose on Sat05/19/22 at 0900, Until Discontinued, Routine 0938 (Given - Provider: Maribell Farias RN) 1014 (Given - Provider: Maribell Farias RN) 0901 (Given - Provider: Deysi Motta RN) docusate sodium (Colace) capsule 100 mg 100 mg, Oral, 3 TIMES DAILY, First dose on Sat05/18/22 at 2100, Until Discontinued, Routine 0938 (Given - Provider: aMribell Farias RN)1403 (Given - Provider: Maribell Farias RN)2142 (Given - Provider: Sandro Newton RN) 1014 (Given - Provider: Maribell Farias RN)1705 (Given - Provider: Maribell Farias RN)2132 (Given - Provider: Raquel Hoffmann) 0901 (Given - Provider: Deysi Motta RN)1500 (Due) furosemide (Lasix) (10 mg/mL) [...] Routine 1403 (Given - Provider: Maribell Farias RN)2142 (Given - Provider: Sandro Newton RN) heparin [...] Maribell Farias RN) 0902 (Given - Provider: Deysi Motta RN) metoproloL tartrate (Lopressor) tablet 25 mg 25 mg, Oral, EVERY 12 HOURS SCHEDULED (2 times per day), First dose on Sat05/21/22 at 0915, Until Discontinued, Routine 09 (Given - Provider: Maribell Farias RN)2141 (Given - Provider: Sandro Newton RN) 1013 (Given - Provider: Maribell Farias RN)2131 (Given - Provider: Raquel Hoffmann) 09 (Given - Provider: Deysi Motta, CHRISTINA) potassium chloride ER (Klor-Con M) tablet 20 mEq (COMPLETED) 20 mEq, Oral, ONCE, 1 dose, On Sat05/22/22 at 0815, 20 mEq tablet may be dissolved in water for administration, Routine 937 (Given - Provider: Maribell Farias RN) senna (Senokot) tablet 17.2 mg 17.2 mg, Oral, EVERY EVENING, First dose on 05/19/22 at 1700, Until Discontinued, Routine 1747 (Not Given - Provider: Maribell Farias RN - Reason: Patient/family refused) 170 (Given - Provider: Maribell Farias RN) sodium chloride 0.9 % (flush) (BD PosiFlush Normal Saline 0.9) flush 5 mL 5 mL, Intravenous, 2 TIMES DAILY, First dose on Sat05/18/22 at 2100, Until Discontinued, Recovery (Recovery-Hospital Unit), Routine 0939 (Given - Provider: Maribell Farias RN)2144 (Given - Provider: Sandro Newton RN) 1013 (Given - Provider: Maribell Farias RN)2133 (Given - Provider: Raquel Hoffmann) 09 (Given - Provider: Deysi Motta, CHRISTINA) tamsulosin (Flomax) capsule 0.4 mg 0.4 mg, Oral, DAILY, First dose on 05/19/22 at 0900, Until Discontinued, DO NOT CRUSH OR OPEN, Routine 09 (Given - Provider: Maribell Farias RN) 1013 (Given - Provider: Maribell Farias RN) 09 (Given - Provider: Deysi Motta, CHRISTINA) tiotropium bromide (Spiriva Respimat) 2.5 mcg/actuation inhaler 2 puff 2 puff, Inhalation, DAILY, First dose on Sat05/18/22 at 2000, Until Discontinued, Must be primed prior to first administration, Routine 0938 (Given - Provider: Maribell Farias RN) 1014 (Given - Provider: Maribell Farias RN) 0907 (Given - Provider: Deysi Motta RN) Continuous Medication Order 05/22/2022 05/23/2022 05/24/2022 HYDROmorphone [...] (Recovery-Hospital Unit) 0737 (Continued Bag - Provider: Deysi Motta RN - Comment: d/c continuous PCEA only)0883 (Stopped - Provider: Kerry Orozco RN) PRN [...] Subcutaneous, ONCE PRN, 1 dose, Starting on Sat05/18/22 at 1932, Until Stephanie [...] Unit) documented in this encounter Care Teams Account Support Specialist Relationship Specialty Start Date End Date Tami Olivia [address] [place] [address] PCP - General Family Medicine 12/30/20 documented as of this encounter
--- OUTSIDE RECORDS SUMMARY | 2023-12-11 17:34 | XMS_ITS | Encounter Summary ---
Author Organization [facility] Address [facility] [place] [address] Care Team Providers Care Psych Coordinator Name Role Phone Tami Olivia Primary Care Provider Encounter Details Date Type Department Care Team (Late st Contact Info) Description 04/24/2022 Orders [place] [address] Gilmer Gutiérrez MD [facility] [place] [address] Status post lobectomy of lung Social History [...] as of this encounter Visit Diagnoses Diagnosis Status post lobectomy of lung Other postprocedural status documented in this encounter Care Teams Psych Coordinator Relationship Specialty Start Date End Date Tami Olivia [address] [place] [address] PCP - General Family Medicine 12/30/20 documented as of this encounter
--- OUTSIDE RECORDS SUMMARY | 2023-12-11 17:34 | XMS_ITS | Encounter Summary ---
Author Organization [facility] Address [facility] [place] [address] Care Team Providers Care Fish Cutter Name Role Phone Tami Olivia Primary Care Provider [phone] Encounter Details Date Type Department Care Team (Late st Contact Info) Description 04/27/[address] [facility] [place] [phone] Anayeli Brown Social History Tobacco Use Types Packs/Day Years [...] encounter Miscellaneous Notes * Telephone Encounter - Anayeli Brown - 04/27/2022 11:31 AM EST Copied from [facility] #[id number]. Topic: Specialty Dept CRMs - Generic Call >> Apr 27, 2022 10:25 AM Yas Barclay wrote: Specialist: Dr Gutiérrez Relationship (if other than patient-full name): Jen/thorasic Reason for Call: Sched pft 04/30 @230 pm basic bundle/cancer/gino. Pt aware dtl documented in this encounter Plan of Treatment Scheduled Procedures Name Priority Associated Diagnoses Date/Ti me ELECTROPHYSIOLOGY PROCEDURE Persistent atrial fibrillation CARDIOVERSION-ELECTIVE (WRVU 2) persistent atrial fibrillation TRANSESOPHAGEAL ECHOCARDIOGR AM (WRVU 2.3) persistent atrial fibrillation documented as of this encounter Visit Diagnoses Not on filedocumented in this encounter Care Teams Fish Cutter Relationship Specialty Start Date End Date Tami Olivia [address] [place] [address] PCP - General Family Medicine 12/30/20 documented as of this encounter
--- OUTSIDE RECORDS SUMMARY | 2023-12-11 17:34 | XMS_ITS | Encounter Summary ---
Author Organization [facility] Address [facility] [place] [address] Care Team Providers Care Torpedo Shooter Name Role Phone Tami Olivia Primary Care Provider [phone] Reason for Visit * Reason Comments Follow-up Encounter Details Date Type Department Care Team (Late st Contact Info) Description 04/30/2022 3:00 PM EST Office [place] [address] Gilmer Gutiérrez MD 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 Social History Tobacco Use Types Packs/Day [...] Sign Reading Time Taken Comments Blood Pressure 110/80 04/30/2022 3:33 PM EST Pulse 116 04/30/2022 3:33 PM EST Temperature 36.7 ??C (98.1 ??F) 04/30/2022 3:33 PM ES T Respiratory Rate 18 04/30/2022 3:33 PM EST Oxygen Saturation 98% 04/30/2022 3:33 PM EST Inhaled Oxygen Concentration - - Weight 72.1 kg (158 lb 15.2 oz) 04/30/2022 3:33 PM EST Height 173.4 cm (5' 8.27) 04/30/2022 3:33 PM ES T Body Mass Index 23.98 04/30/2022 3:33 PM EST documented in this encounter Patient Instructions * Patient Instructions* Megan Reza, RN - 04/30/2022 3:00 PM EST Thank you for seeing Dr. Gutiérrez in clinic 04/30/22 Dr. Gutiérrez would like you to have a Robotic Decortication of your lung performed. Your procedure is scheduled for Saturday. You will receive a phone call from the OR nurses on May after 2pm through 6 pm. They will confirm your arrival time, reviewwhat medications to take and when to stop eating and drinking We will send you to for preadmission testing. Your procedure will take place in . Bronchoscopy is the term for a procedure in which a scope (thin tube with a light source on the end), is placed through your mouth or nose and into your trachea and large airways. A small amount of tissue from the surface of the area is removed. The removal of the tissue is called a biopsy. Decortication of the lung involves the surgical removal of tough fibrous tissue that has developed around the lung, This tough fibrous rind of tissue makes it difficult for the lung to fully inflate. A video-assisted thoracoscopic surgery, or VATS, involves a range of technologies to enable the removal of tissue through several small cuts in the chest. A tiny camera, light supply and surgical tools are inserted in the incisions and through the body to the surgical site. In RVATS or robot-assisted video-assisted thoracic surgery, the surgeon controls the camera, light source and surgical tools from a console, with the same degree of flexibility and dexterity as if they were held in the surgeon's hand. The tiny size of the instruments and the precision movement of the robotic arms allow the surgeon to operate in small and coin-jo-fkatn places in the chest cavity, and to move carefully around sensitive blood vessels, tissues and organs, enabling more difficult procedures to be performed with RVATS versus open surgery. Before your Surgery: PLEASE WASH WITH EITHER DIAL SOAP or the HIBICLENS SOAP included in this package. You may shower either the night before or the morning of surgery and please place clean clothes on after your shower Exercise: Daily aerobic exercise for at least 30 minutes will help improve your endurance and improve the breathing capacity of your lungs. This means that you are breathing hard, your heart is beating fast and that you are sweating. Examples of this include walking, biking, swimming, and using a treadmill or stationary bike. You will be expected to exercise after surgery as well. Incentive Spirometer: Place the Incentive spirometer in your mouth when you are ready to take a slow deep breath in through your mouth (sucking motion, DO NOT BLOW into the device). Use your incentive spirometer as you were shown in clinic: 6 times daily/10 breaths each time. It is a sucking motion when you take a slow deep breath in, DO NOT BLOW INTO THIS MACHINE You may also bundle the use of the incentive spirometer as well - 30 breaths in the morning and 30 breaths at night. Please keep your incentive spirometer near your favorite chair so that in between commercials you can remember to use it! Take a slow, deep breath in through your mouth. While the piston rises, the indicator on the right should move upwards. It should stay between the 2 arrows for 2 to 4 seconds with each breath. If theindicator does not stay between the arrows, you are breathing either too fast or too slowly. The incentive spirometer will help you expand your lungs and encourage you to breathe deeply and fully. You will use the incentive spirometer as part of your recovery process and to prevent complications such as pneumonia. You take the medication XARELTO. Please take your last dose of XARELTO on Saturday. Starting on Saturday, Please DO NOT TAKE your XARELTO and continue to NOT TAKE your XARELTO until after your procedure. Saturday Saturday Saturday May Saturday Last dose for XARELTO DO NOT TAKE XARELTO DO NOT TAKE XARELTO DO NOT TAKE XARELTO DO NOT TAKE XARELTO If you take a baby aspirin, please continue to take this medication. Please do not take any vitamin supplements, fish oil for 7 days prior to your surgery. Things to bring to your hospital stay. You may bring your cellphone, and assistant research scientist, pajama pants and shirts, under garments, comfy clothes for the ride home (a button down shirt may be the easiest to put on), sneakers or slippers with rubber soles, any toiletries that you prefer over hospital supplied toothbrush, toothpaste, deodorant. Some things to expect during your surgery and while you are in the hospital: You will have a chest tube placed while you are in surgery. A Chest tube is a flexible tube that isused to drain blood, fluid and air from around your lungs after surgery. The tube enters your body between your ribs and goes into the space where the piece of lung was removed. The chest tube will come out a day after surgery, if there is no air leak in your lung. If there is an air leak, the chest tube will stay in until it stops. The nurse and doctor will be watching for the air leak to clear up regularly throughout the day. Post Surgery Instructions at home for bowel regimen: Bowel regimen while at home. Please obtain senna (Senokot) tablets, colace tablets, and Miralax powder. You will need to take senna once a day, colace three times a day and miralax once a day to keep your bowels moving. If you do not have a bowel movement in 2 days you will need to call the office as you will need to obtain either Milk of Magnesia (MOM), Magnesium Citrate, a Fleet's enema or glycerinsuppositories. If you are having diarrhea, then you may back off on the bowel medications. If you are taking narcotics, you need to continue the bowel medications while you are taking the narcotics. Post Surgery Instructions at home for pain medication: Example of what you will be taking for pain control after your surgery. Please make sure that you have Extra strength Tylenol (acetaminophen) and Motrin (ibuprofen) at home before you are discharged Extra strength acetaminophen 1000 mg alternate with ibuprofen 200 mg (2-3 tabs) take both medications together every 6 hours: ex. Schedule - Extra strength acetaminophen 1000 mg and Ibuprofen 200 mg (2-3 tabs) at 8am,then Extra strength acetaminophen 1000 mg and Ibuprofen 200 mg (2-3 tabs) at 2 pm,Extra strength acetaminophen 1000 mg and Ibuprofen 200 mg (2-3 tabs) at 8pm. PLEASE AVOID SOAKING IN ANY BATH TUBS, POOLS, HOT TUBS, Oceans, Lakes, Ponds, Muller or any other device with water for 3 months after your surgery. PLEASE DO NOT FLY FOR AT LEAST 3 weeks to 2 MONTHS after your surgery as well. No heavy lifting greater than 10 pounds for at least 6 weeks after surgery. Please do not go to the chiropractor for at least 3 months after surgery. 's team will see you twice per day while you are in the hospital. Two weeks after you leave the hospital, you will be scheduled to see Dr. Gutiérrez in his clinic and will also have a chest x-ray before you see him on this day. Please call the Thoracic Surgery nurse if you have any questions before or after your surgery at . documented in this encounter Progress Notes * Mendy Moreland PA - 04/30/2022 3:00 PM EST Images from the original note were not included. Thoracic Surgery Attending Outpatient Follow Up Note MD Mendy Fischer PA-C [place] [id number] Reason for Visit: Follow up after PFTs HPI: Rajan Marquez is a 71 y.o. male who is s/p L VATS LULobectomy on March 29 2021, and subsequent LEFT VATS pleural biopsies on February 08 2022 for a recurrent loculated left pleural effusion. Hewas last seen in the thoracic surgery clinic on 04/16/[address] Chest that revealed Ex vacuo left hyd ropneumothorax trapped in thickened left pleural rind. His breathing is unchanged. He continues to feel limited in his daily activities due to his breathing, spending most of the day in a recliner. He does not offer any new complaints and further denies fever/chills, weight loss, cough, hemoptysis, dyspnea at rest, or chest pain. Medications: Current Outpatient Medications on File Prior to [...] Take 0.4 mg by mouth daily. ??? omeprazole (PriLOSEC) 20 mg Capsule, Delayed Release(E.C.) Take 20 mg by mouth daily. ??? hydrOXYchloroQUINE (Plaquenil) 200 mg Tablet Take 200 mg by mouth Daily. ??? albuterol sulfate (Proair Digihaler) 90 mcg/actuation aero powdr breath act w/sensor 4 times daily as needed. ??? cholecalciferol, Vitamin D3, (Vitamin D3) 1,000 unit Tablet Take 1 tablet by mouth daily. No current facility-administered medications on file prior to visit. Physical Exam: There were no vitals taken for this visit. General Appearance: Alert, pleasant, no distress Lungs: Clear to auscultation bilaterally, though diminished throughout on the left. Respirations unlabored, no wheezes, crackles or ronchi. Heart: Tachycardic, regular rate and rhythm, S1 and S2 normal, no murmur, rub, or gallop Extremities: Extremities normal, atraumatic, no cyanosis or edema Wound/Incision: L VATS incisions clean, dry, and intact with evidence of good wound healing Imaging: I have independently visualized the following studies: PFTs (04/30/22) Assessment: Rajan Marquez is a 71 y.o. male who is s/p L VATS LULobectomy on March 29 2021, and subsequent L VATS w/ pleural biopsies on February 08 2022 for a loculated left pleural effusion. At his previous office visit, we discussed options to improve his breathing. These included palliative Pleurx catheter placement, supportive care, or robotic assisted L VATS (likely thoracotomy) for total decortication. His preference at that time was to proceed with surgery, and he has reaffirmed that today. He is aware that a minimally invasive approach will be attempted but it is likely that a thoracotomy will be necessary to complete the surgery. Plan: 1. Plan for robotic assisted LEFT VATS total decortication, likely conversion to open thoracotomy given surgical history on that side. Tentatively scheduled for May 18 2022. 2. Call with any questions or concerns All plans formulated in discussion with and directed by attending thoracic surgeon Dr. Gutiérrez, who the patient was seen in conjunction with in clinic today. Mendy Moreland PA-C 04/30/22 Dept of Thoracic Surgery [facility] * Gilmer Gutiérrez MD - 04/30/2022 3:00 PM EST Thoracic surgery follow-up visit I saw and examined Mr. Marquez with Mendy Moreland and agree with her findings, assessment and plan. Inbrief: Chief complaint: Trapped lung following a left upper lobectomy History of present illness: Mr. Marquez is a 71-year-old man who underwent thoracoscopic left upper lobectomy on March 19, 2021. He developed radiographic evidence of a loculated left pleural effusion and pleural biopsies on February 08, 2022 confirmed a benign inflammatory process with significant trapped lung. His course was complicated by a prolonged air leak. He has significant dyspnea as a result of this finding, and is being evaluated for possible total decortication. At my last visit I recommended pulmonary function testing and he comes in today having completed this study. He reports no changes in his breathing. Current Outpatient Medications on File Prior to Visit Medication Sig Dispense Refill ??? AMIOdarone (Paceron) 200 mg Tablet Take 1 tablet by mouth daily. 30 tablet 11 ??? acetaminophen (Tylenol) 500 mg Tablet Take 2 tablets by mouth every 6 hours. 30 tablet 1 ??? rivaroxaban (Xarelto) 20 mg Tablet Take 20 mg by mouth daily. ??? metoprolol succinate XL (Toprol-XL) 25 mg Tablet Sustained Release 24 hr Take 25 mg by mouth daily. ??? UNABLE TO FIND Cbd gummies to help with smoking cessation. ??? bupropion HCl (WELLBUTRIN ORAL) Take 150 mg by mouth daily. ??? tamsulosin (Flomax) 0.4 mg Capsule Take 0.4 mg by mouth daily. ??? omeprazole (PriLOSEC) 20 mg Capsule, Delayed Release(E.C.) Take 20 mg by mouth daily. ??? hydrOXYchloroQUINE (Plaquenil) 200 mg Tablet Take 200 mg by mouth Daily. ??? albuterol sulfate (Proair Digihaler) 90 mcg/actuation aero powdr breath act w/sensor 4 times daily as needed. ??? cholecalciferol, Vitamin D3, (Vitamin D3) 1,000 unit Tablet Take 1 tablet by mouth daily. ??? Spiriva Respimat 2.5 mcg/actuation Mist ??? sildenafiL (VIAGRA) 50 mg Tablet TAKE 1/2 TO 1 TABLET BY MOUTH 30 MINUTES PRIOR TO SEXUAL ACTIVITY NEEDED. MAXIMUM DAILY DOSE 2 No current facility-administered medications on file prior to visit. BP 110/80 (Patient Position: Sitting) Pulse (!) 116 Temp 36.7 ??C (98.1 ??F) (Temporal) Resp 18 Ht 173.4 cm (5' 8.27) Wt 72.1 kg (158 lb 15.2 oz) SpO2 98% BMI 23.98 kg/m?? Physical exam: He appears comfortable. His breath sounds are diminished on the left. Pulmonary function testing: PFTs dated April 12, 2022 are notable for an FVC of 2.62 (68% predicted) and an FEV1 to FVC ratio 97% predicted. His DLCO is 82% corrected for alveolar volume. Of note, his preoperative FVC was 110% predicted Assessment: 71-year-old man now just over 1 year removed from a thoracoscopic left upper lobectomy,with a subsequent pleural effusion and now apparent fibrothorax. The pattern on his pulmonary function testing show a restrictive deficit consistent with his trapped left lung. I recommended proceeding with an attempt at thoracoscopic decortication with possible conversion to thoracotomy if needed Plan: Robotic left total decortication with potential thoracotomy. 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
--- OUTSIDE RECORDS SUMMARY | 2023-12-11 17:34 | XMS_ITS | Encounter Summary ---
Author Organization [facility] Address [facility] [place] [address] Care Team Providers Care Nps Name Role Phone Tami Olivia Primary Care Provider [phone] Encounter Details Date Type Department Care Team (Late st Contact Info) Description 05/15/2022 Telephone Thoracic Surgery at [facility] [place] [phone] Megan Reza RN Social History Tobacco Use [...] Telephone Encounter - Megan Reza RN - 05/15/2022 10:27 AM ESTSummary: Xarelto hold TC to Mr. Marquez Hx: L VATS LULobectomy on March 29 2021, now with recurrent loculated left pleural effusion scheduled for Thoracoscopic, possible thoracotomy with total decortication on Saturday05/18/2022 on XARELTO. Mr. Marquez is doing well. He has confirmed that his last dose of Xarelto was Saturday. Starting today Saturday he will not take his Xarelto and continue through until after his procedure on Saturday. He knows to call with any questions or concerns. documented in this encounter Plan of Treatment Scheduled Procedures Name Priority Associated Diagnoses Date/Ti me ELECTROPHYSIOLOGY PROCEDURE Persistent atrial fibrillation CARDIOVERSION-ELECTIVE (WRVU 2) persistent atrial fibrillation TRANSESOPHAGEAL ECHOCARDIOGR AM (WRVU 2.3) persistent atrial fibrillation documented as of this encounter Visit Diagnoses Not on filedocumented in this encounter Care Teams Nps Relationship Specialty Start Date End Date Tami Olivia [address] [place] [address] PCP - General Family Medicine 12/30/20 documented as of this encounter
--- OUTSIDE RECORDS SUMMARY | 2023-12-11 17:34 | XMS_ITS | Encounter Summary ---
Author Organization [facility] Address [facility] [place] [address] Care Team Providers Care Cooperative Education Coordinator Name Role Phone Tami Olivia Primary Care Provider Encounter Details Date Type Department Care Team (Late st Contact Info) Description 05/01/2022 Orders Only [facility] [place] [address] Megan Reza, RN Social History Tobacco Use [...] on filedocumented in this encounter Care Teams Cooperative Education Coordinator Relationship Specialty Start Date End Date Tami Olivia [address] [place] [address] PCP - General Family Medicine 12/30/20 documented as of this encounter
--- OUTSIDE RECORDS SUMMARY | 2023-12-11 17:34 | XMS_ITS | Encounter Summary ---
Author Organization [facility] Address [facility] [place] [address] Care Team Providers Care Dining Car Steward Name Role Phone Tami Olivia Primary Care Provider Encounter Details Date Type Department Care Team (Latest Contact Info) Description 04/30/2022 1:50 PM EST - 04/30/2022 11:59 PM EST Hospital Encounter Pulmonology at [facility] [place] [phone] Pleural effusion; Squamous cell carcinoma of left [...] Procedure Name Priority Date/Time Associated Diagnosis Comments COMMON PULMONARY FUNCTION TEST Routine 04/30/2022 2:44 PM EST Pleural effusion 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 documented in this encounter Results * Pulmonary Function Testing [...] / FVC LLN 62 % COMPAS PFT [id number] Actual Pre-BD 1.42 L/s COMPAS PFT [id number] Pre-BD % of Predicted 64 % COMPAS PFT [id number] Predicted 2.21 L/s COMPAS PFT [id number] Pre-BD Z-Score -0.94 COMPAS PFT DLCO Hb [...] DLCO decreased by 46%. Procedure Note NEW, JENNIFER - 05/02/2022 FINDINGS: FEV1 and FVC are [...] status documented in this encounter Care Teams Dining Car Steward Relationship Specialty Start Date End Date Tami Olivia [address] [place] [address] PCP - General Family Medicine 12/30/20 documented as of this encounter
--- OUTSIDE RECORDS SUMMARY | 2023-12-11 17:35 | XMS_ITS | Encounter Summary ---
Author Organization [facility] Address [facility] jenna [place] [id number] Care Team Providers Care Shell Molding Roller Blast Operator Name Role Phone Tami Olivia Primary Care Provider [phone] Reason for Visit * Auth/Cert (Routine) Specialty Diagnoses / Procedures Referred By Bert t Referred To Contact Diagnoses Pleural effusion, not elsewhere classified Malignant neoplasm of unspecified part of left bronchus or lung pleural effusion Procedures PRO THORACOSCOPY WITH BIOPSY OF PLEURA PRO BRONCHOSCOPY, DIAGNOSTIC THORACOSCOPY; WITH BIOPSY(IES) OF PLEURA (WRVU 4.58) BRONCHOSCOPY, DIAGNOSTIC (WRVU 2.78) Gilmer Gutiérrez MD [facility] [place] [address] [facility] Referral ID Status Reason Start Date Expiration Date Visits Re quested Visits Authorized [id number] 1 1 Encounter Details Date Type Department Care Team (Late st Contact Info) Description 02/08/2022 12:01 PM EST Anesthesia [place] [id number] Keerthi Rice MD [facility] [place] [address] Tita Raza MD [facility] [place] [address] Anesthesia Record Procedure Summary Procedure Name Responsible Anesthesiologist Anesthesia Start Time Anesthesia Stop Time THORACOSCOPY; WITH BIOPSY(IES) OF PLEURA (WRVU 4.58) (Left: Chest) Keerthi Rice MD 02/08/22 1201 02/08/22 1401 Events Date Time Event Comment 02/08/2022 1128 1201 AN Verify 1201 Start 1201 An Start Data 1207 An Induction 1212 An Intubation 1217 FO Bronchoscopy 1223 Anesthesia Ready 1223 An one lung vent 1228 An Data Art Pulse ox malpos itioned on patient's finger 1239 Procedure Start 1329 An Dual Lung Vent 1348 Extubation/LMA Out 1351 an stop data 1401 Recovery or ICU Handoff Lucy ent care was transferred to the destination unit staff after review of the patient's medical history, current anesthetic/surgical status and plan, according to the Provider Handoff Checklist. 1401 Stop Meds Name Total fentaNYL 50 mcg Propofol 150 mg Rocuronium 50 mg PHENYLephrine 160 mcg ePHEDrine 20 mg Dexamethasone 8 mg Ondansetron 4 mg Neostigmine 4 mg Glycopyrrolate 0.6 mg Dexmedetomidine 16 mcg PHENYLephrine INF 1,400 mcg ceFAZolin 2 g Succinylcholine 100 mg Lactated Ringers 900 mL * Agents Name O2 Air N2O Sevoflurane (et) * Blood No blood administrations on file. Lines, Drains, and Airways Type Details Placement Removal (RETIRED) Peripheral IV Line - Single Lumen 02/08/22; 1132; brachial vein, right; [id number] catheter system; Anatomical Landmarks; 20 gauge; Kendall VASQUEZ; no longer indicated, catheter/device intact, site care per policy/procedure; 02/10/22; 1258 02/08/22 1132 by Marcus Kong RN 02/10/22 1258 by Malia Paredes RN ETT Mask Ventilation: Adjunct (2); ETT Type: Cuffed; Double Lumen: 41 Fr; Mac Blade: 4; Attempts: 1; Laryngoscopy Grade: 1; ETT Placement Verified By: Auscultation, Capnometry, Visual; Inserted by: MD Ry; Removal Date: 02/08/22; Removal Time: 1348 02/08/22 1217 by Tita Raza MD 02/08/22 1348 by Tita Raza MD Incision 02/08/22; 1240; Left ; chest; laparoscopic puncture; LDA not present upon assessment; 05/22/22; 0700 02/08/22 1240 by Judie Carrasco RN 05/22/22 0700 by Maribell Farias RN Chest Tube 02/08/22; 1329; Left ; lateral; 28 Fr; 02/19/22; 1200 (BY cardio thoracis) 02/08/22 1329 by Judie Carrasco RN 02/19/22 1200 by Naomie Monteiro RN documented in this encounter Social History Tobacco Use Types Packs/Day Years Used Date Smoking Tobacco: Some Days Cigarettes Smokeless Tobacco: Never Comments:1 ppd for the past year Sex and Gender Information Value Date Recorded Sex Assigned at Not on file Gender Identity Not on file Sexual Orientation Not on file documented as of this encounter OR Notes * Anesthesia Postprocedure Evaluation - Tita Raza MD - 02/08/2022 2:01 PM EST Department of Anesthesiology Post-procedure Note Patient: Rajan Marquez Procedure Summary Date: 02/08/22 Room / Location: [facility] OR [address] [place] [address] MAIN OR Anesthesia Start: 1201 Anesthesia Stop: 1401 Procedures: THORACOSCOPY; WITH BIOPSY(IES) OF PLEURA (WRVU 4.58) (Left: Chest) BRONCHOSCOPY, DIAGNOSTIC (WRVU 2.78) Diagnosis: Pleural effusion 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 Patient Location: PACU/[facility] Level of Consciousness: Awake and Alert Pain Management: Satisfactory Analgesia PONV: None Cardiovascular Status: At Baseline and Hemodynamically Stable Respiratory Status: Supplemental O2 (NC or FM) Postoperative Fluid Status: Intravascular EUvolemia Possible Anesthetic Complications: NONE apparent at time of evaluation Final Primary Anesthesia Type: General (The anesthetic type performed was the same as planned.) Comments: Patient awake and conversant on transfer to PACU. Tita Raza MD * Anesthesia Preprocedure Evaluation - Keerthi Rice MD - 02/07/2022 3:48 PM EST Pre-Anesthesia Evaluation for: Rajan Marquez a 71 y.o. male. Procedure(s): THORACOSCOPY; WITH BIOPSY(IES) OF PLEURA (WRVU 4.58) BRONCHOSCOPY, DIAGNOSTIC (WRVU 2.78) Patient Active Problem List Diagnosis Date Noted ??? Mass of upper lobe of left [...] IR Thoracentesis Left 11/08/2021 Ramírez Ramirez MD [facility] INTERVENTIONL RAD ??? PRO BRONCHOSCOPY, DIAGNOSTIC N/A 03/29/2021 BRONCHOSCOPY, DIAGNOSTIC (WRVU 2.78) performed by Gilmer Gutiérrez MD at [facility] MAIN OR ? ? PRO INJECTION ANES AGENT &/ STEROID INTERCOSTAL NERVE SINGLE LEVEL Left 03/29/2021 NERVE BLOCK, INTERCOSTAL NERVE (WRVU 1.18) performed by Gilmer Gutiérrez MD at [facility] MAIN OR ??? PRO THORACOSCOPY SURG LOBECTOMY Left 03/29/2021 @THORACOSCOPY,SURGICAL,W\LOBECTOMY,TOTAL OR SEGMENTAL (WRVU 24.64) performed by Johana Gutiérrez MD at [facility] MAIN OR ??? PRO THORACOSCOPY WITH MEDIASTINAL AND REGIONAL LYMPHADENECTOMY 03/29/2021 @THORACOSCOPY, SURG; W/MEDIASTINAL& REGIONAL LYMPHADENECTOMY (WRVU 4.12) performed by Gilmer Gutiérrez MD at [facility] MAIN OR ??? PRO THORACOSCOPY WITH WEDGE RESECTION AND ANATOMIC LUNG RESECTN Left 03/29/2021 @THORACOSCOPY, SURG; W/DX WEDGE RESC W/ANATOMIC LUNG RESC (WRVU 3) performed by Johana Gutiérrez MD at [facility] MAIN OR Social History Tobacco Use ??? Smoking status: Former Packs/day: 2.00 Years: 50.00 Pack years: 100.00 Types: Cigarettes Quit date: 02/14/2021 Years since quittin.9 ??? Smokeless tobacco: Never ??? Tobacco comments: 1 ppd for the past year Substance Use Topics ??? Alcohol use: Not on file Social History Substance and Sexual Activity Drug Use Not on file Allergies Allergen Reactions ??? Cat Dander Runny eyes and nose ??? Dog Dander Runny eyes and nose Medications: MAR and/or home medications have been reviewed. Physical Exam: Preprocedure Vitals Current as of 02/07/22 1548 No BP, pulse, respiration, SpO2, or temperature recorded. Height: 174.8 cm (5' 8.82) (01/29/22) Weight: 73.5 kg (162 lb 0.6 oz) (01/29/22) BMI: 24.05 IBW: 70.3 kg (154 lb 15.2 oz) Airway Assessment: Mallampati: II TM distance: >3 FB Neck ROM: full Cardiovascular Assessment: Rhythm: regular system normal Pulmonary Assessment: breath sounds clear to auscultation (+) decreased breath sounds pulmonary exam normal Dental Assessment: (+) edentulous, upper dentures and lower dentures Misc Assessment: IV access: Peripheral line Last Filed Perioperative Cognitive Screening Value Time User 4AT TOTAL Score: 0 03/29/2021 8:00 PM Vanessa Salcedo RN Anesthesia Plan: ASA 3 general, with a(n) intravenous induction Preliminary Note prior to patient interview Rajan Marquez is a 71 y.o. male with SCCa of lung s/p DAYSI lobectomy, now with with L pleural effusion s/p thoracentesis x2 presenting for L pleural biopsy with thorascopy and bronchoscopy. PMHx: SCCa s/p L VATS lobectomy, COPD, CAD (on Xarelto, no further information in records), HTN, GERD, BPH Smoking - former smoker, quit 02/2021 - 100 pack-year, Alcohol use - denies , Drug use - denies BMI 24, Ht 174 cm, Wt 73.5 kg Medications: No current facility-administered medications for this encounter. ??? rivaroxaban (Xarelto) 20 mg Tablet ??? metoprolol succinate XL (Toprol-XL) 25 mg Tablet Sustained Release 24 hr ??? sildenafiL (VIAGRA) 50 mg Tablet ??? lisinopriL (Zestril) 10 mg Tablet ??? UNABLE TO FIND ??? bupropion HCl (WELLBUTRIN ORAL) ??? tamsulosin (Flomax) 0.4 mg Capsule ??? omeprazole (PriLOSEC) 20 mg Capsule, Delayed Release(E.C.) ??? hydrOXYchloroQUINE (Plaquenil) 200 mg Tablet ??? fluticasone furoate-vilanteroL (Breo Ellipta) 200-25 mcg/dose Disk with Device ??? albuterol sulfate (Proair Digihaler) 90 mcg/actuation aero powdr breath act w/sensor ??? cholecalciferol, Vitamin D3, (Vitamin D3) 1,000 unit Tablet Allergies: ??? Cat Dander Runny eyes and nose ??? Dog Dander Runny eyes and nose NPO adequate. No other recent illnesses/fevers. Anesthesia Hx: Past airway: previous intubation with multiple attempts - G2V - G4V with Mac 3 -4, Diaz 2 with GENNY . No prior issues with anesthesia. Labs -no recent labs Cardiac studies: EKG 02/2021 - NSR, PACs Stress Test 02/2021 - 4.6 METS with frequent PVCs, PACs - no scar or ischemia PFTs 02/13/21 - normal FEV1, FVC and FEV1/FVC. Normal DLCO Plan is for GA with double lumen ETT, +/- arterial line, standard ASA monitors, and adequate venousaccess. Tita Raza MD 02/07/2022 decorator consultant (Dwayne): chart reviewed, patient interviewed and examined in SDA prior to surgery. Case and Plan discussed. Pt npo>8h, no complications with prior anesthetic. Agree with resident assessment, plan GA with GENNY. Previous surgery comments regarding the airway noted, will have backup fiberoptic and VL available. Region - Intrathoracic Non-Cardiac Informed Consent: Anesthetic plan and risks discussed with patient. Plan discussed with resident. Anesthesia Screening documented in this encounter Plan of Treatment Scheduled Procedures Name Priority Associated Diagnoses Date/Ti ak ELECTROPHYSIOLOGY PROCEDURE Persistent atrial fibrillation CARDIOVERSION-ELECTIVE (WRVU 2) persistent atrial fibrillation TRANSESOPHAGEAL ECHOCARDIOGR AM (WRVU 2.3) persistent atrial fibrillation documented as of this encounter Visit Diagnoses Not on filedocumented in this encounter Administered Medications Inactive Administered Medications - up to 3 most recent administrations Medication Order MAR Action Action Date Dose Rate Site ceFAZolin (Ancef) 1 g in dextrose 5% 50 mL infusion Intravenous, PRN, Starting on Stephanie 02/08/22 at 1234, Until Stephanie 02/08/22 at 1401, Administer over 30 Minutes, Anesthesia Intra-op Given 02/08/2022 12:34 PM EST 2 g dexAMETHasone (Decadron) injection Intravenous, PRN, Starting on Stephanie 02/08/22 at 1223, Until Stephanie 02/08/22 at 1401, Anesthesia Intra-op, Routine Given 02/08/2022 12:23 PM EST 8 mg dexmedeTOMIDine (Precedex) (4 mcg/mL) bolus injection (Anesthsia) Intravenous, PRN, Starting on Stephanie 02/08/22 at 1157, Until Stephanie 02/08/22 at 1401, Anesthesia Intra-op, Routine Given 02/08/2022 12:57 PM EST 8 mcg Given 02/08/2022 11:57 AM EST 8 mcg ePHEDrine sulfate (5 mg/mL) multi-dose injection Intravenous, PRN, Starting on Stephanie 02/08/22 at 1234, Until Stephanie 02/08/22 at 1401, Anesthesia Intra-op, Routine Given 02/08/2022 1:19 PM EST 5 mg Given 02/08/2022 12:42 PM EST 10 mg Given 02/08/2022 12:34 PM EST 5 mg fentaNYL (pf) (50 mcg/mL) multi-dose injection Intravenous, PRN, Starting on Stephanie 02/08/22 at 1217, Until Stephanie 02/08/22 at 1401, Anesthesia Intra-op, Routine Given 02/08/2022 12:07 PM EST 50 mcg glycopyrrolate (Robinul) (0.2 mg/mL) multi-dose injection Intravenous, PRN, Starting on Stephanie 02/08/22 at 1344, Until Stephanie 02/08/22 at 1401, Anesthesia Intra-op, Routine Given 02/08/2022 1:46 PM EST 0.2 mg Given 02/08/2022 1:44 PM EST 0.4 mg lactated ringers infusion Intravenous, CONTINUOUS PRN, Starting on Stephanie 02/08/22 at 1201, Until Stephanie 02/08/22 at 1401, Anesthesia Intra-op New Bag 02/08/2022 12:01 PM EST neostigmine (Bloxiver) (1 mg/mL) injection Intravenous, PRN, Starting on Stephanie 02/08/22 at 1344, Until Stephanie 02/08/22 at 1401, Anesthesia Intra-op, Routine Given 02/08/2022 1:46 PM EST 1 mg Given 02/08/2022 1:44 PM EST 3 mg ondansetron (pf) (Zofran) (2 mg/mL) injection Intravenous, PRN, Starting on Stephanie 02/08/22 at 1348, Until Stephanie 02/08/22 at 1401, Anesthesia Intra-op, Routine Given 02/08/2022 1:48 PM EST 4 mg PHENYLephrine (Maninder-Synephrine) (80 mcg/mL) in sodium chloride 0.9% 250 mL infusion Intravenous, CONTINUOUS PRN, Starting on Stephanie 02/08/22 at 1243, Until Stephanie 02/08/22 at 1401, Anesthesia Intra-op, Routine Rate/Dose Change 02/08/2022 1:15 PM EST 40 mcg/min 30 mL/hr Restarted 02/08/2022 1:05 PM EST 20 mcg/min 15 mL/hr New Bag 02/08/2022 12:43 PM EST 20 mcg/min 15 mL/hr PHENYLephrine in NS (PF) (MANINDER-SYNEPHRINE) 0.8 mg/10 mL (80 mcg/mL) multi-dose injection Syrg Intravenous, PRN, Starting on Stephanie 02/08/22 at 1306, Until Stephanie 02/08/22 at 1401, Anesthesia Intra-op, Routine Given 02/08/2022 1:24 PM EST 80 mcg Given 02/08/2022 1:06 PM EST 80 mcg propofoL (Diprivan) 10 mg/mL bolus injection (Anesthesia) Intravenous, PRN, Starting on Stephanie 02/08/22 at 1207, Until Stephanie 02/08/22 at 1401, Anesthesia Intra-op Given 02/08/2022 12:07 PM EST 150 mg rocuronium (Zemuron) (10 mg/mL) multi-dose injection Intravenous, PRN, Starting on Stephanie 02/08/22 at 1218, Until Stephanie 02/08/22 at 1401, Anesthesia Intra-op, Routine Given 02/08/2022 12:18 PM EST 50 mg succinylcholine (Anectine;Quelicin) (20 mg/mL) injection Intravenous, PRN, Starting on Stephanie 02/08/22 at 1210, Until Stephanie 02/08/22 at 1401, Anesthesia Intra-op, Routine Given 02/08/2022 12:10 PM EST 100 mg documented in this encounter Care Teams Shell Molding Roller Blast Operator Relationship Specialty Start Date End Date Tami Olivia [address] [place] [address] PCP - General Family Medicine 12/30/20 documented as of this encounter
--- OUTSIDE RECORDS SUMMARY | 2023-12-11 17:35 | XMS_ITS | Encounter Summary ---
[facility] [place] [address] Care Team Providers Care Sexton Helper Name Role Phone Tami Olivia Primary Care Provider [phone] Encounter Details Date Type Department Care Team (Latest Contact Info) Description 02/17/2022 Travel Social History Tobacco Use Types Packs/Day [...] on filedocumented in this encounter Care Teams Sexton Helper Relationship Specialty Start Date End Date Tami Olivia [address] [place] [address] PCP - General Family Medicine 12/30/20 documented as of this encounter
--- OUTSIDE RECORDS SUMMARY | 2023-12-11 17:35 | XMS_ITS | Encounter Summary ---
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 Procedures CT Chest w Contrast Gilmer Gutiérrez MD [facility] [place] [address] [facility] [place] [address] Referral ID Status Reason Start Date Expiration Date V isits Requested Visits Authorized [id number] Closed Specialty Service Requested 11/14/2021 05/15/2023 1 1 Reason for Visit * Diagnostic Test (Routine) - Closed Specialty Diagnoses / Procedures Referred By Bert gautam Referred To Contact Radiology Diagnoses 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 12/12/2022 lisinopriL (Zestril) 10 mg Tablet Take 10 mg by mouth daily. 02/21/2022 omeprazole (PriLOSEC) 20 mg Capsule, Delayed Release(E.C.) Take 20 mg by mouth daily. 03/12/2018 05/17/2022 fluticasone furoate-vilanteroL (Breo Ellipta) 200-25 mcg/dose Disk with Device Inhale 1 puff into the lungs Daily. 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 ??If you are a health care provider and have any questions regarding this report, please contact the number below. ??For patients who have questions please contact the health residential child care counselor that requested your imaging first. ? Electronically signed by: Ludivina Cummings MD, [facility] ([phone]), at 01/29/2022 3:05 PM Narrative 01/29/2022 3:05 PM EST EXAMINATION: CT CHEST W CONTRAST CLINICAL HISTORY: Non-small cell lung cancer, post treatment, no evidence of disease hx of LULobectomy on 03/29/2021 for Squamous Cell Carcinoma, please eval for changes, evidence of disease/recurrence TECHNIQUE: : Helical CT of the chest after the intravenous administration of contrast, Administered 60.0 ml of OMNIPAQUE 350.00 mg/ml. Thin-section reconstructions as well as coronal and sagittal reformatted images were generated. COMPARISON: 01/03/2022 and 10/31/2019 FINDINGS: Pulmonary parenchyma stable postsurgical changes LEFT hemithorax status post LEFT upper lobectomy with mild atelectasis due to the pleural effusion. The RIGHT lung is clear Airways: No central endobronchial abnormality. Pleura: Unchanged moderate LEFT effusion. No pneumothorax Lymph nodes: No lymphadenopathy. Heart and vasculature: Normal size of the heart. No significant pericardial effusion. Normal caliber of the thoracic aorta. Other mediastinal structures: No significant findings. Upper abdomen: Unchanged bilateral diffuse adrenal enlargement Skeletal structures: No significant findings. Procedure Note Ludivina Cummings MD - 01/29/2022 EXAMINATION: CT CHEST W CONTRAST CLINICAL HISTORY: Non-small cell lung cancer, post treatment, no evidenceof disease hx of LULobectomy on 03/29/2021 for Squamous Cell Carcinoma, please evalfor changes, evidence of disease/recurrence TECHNIQUE: : Helical CT of the chest after the intravenous administrationof contrast, Administered 60.0 ml of OMNIPAQUE 350.00 mg/ml. Thin-section reconstructions as well as coronal and sagittal reformatted images were generated. COMPARISON: 01/03/2022 and 10/31/2019 FINDINGS: Pulmonary parenchyma stable postsurgical changes LEFT hemithorax statuspost LEFT upper lobectomy with mild atelectasis due to the pleural effusion.The RIGHT lung is clear Airways: No central endobronchial abnormality. Pleura: Unchanged moderate LEFT effusion. No pneumothorax Lymph nodes: No lymphadenopathy. Heart and vasculature: Normal size of the heart. No significantpericardial effusion. Normal caliber of the thoracic aorta. Other mediastinal structures: No significant findings. Upper abdomen: Unchanged bilateral diffuse adrenal enlargement Skeletal structures: No significant findings. IMPRESSION No evidence recurrence Stable moderate pleural effusion Thank you for letting us participate in the care of this patient. If youare a health care provider and have any questions regarding this report,please contact the number below. For patients who have questions please contactthe health residential child care counselor that requested your imaging first. 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 documented in this encounter Administered Medications Inactive Administered Medications - up to 3 most recent administrations Medication Order MAR Action Action Date Dose Rate Site iohexoL (Omnipaque) (350 mg/mL) solution 0-200 mL 0-200 mL, Intravenous, ONCE PRN, 1 dose, Starting on Sat01/29/22 at 1235, Until Sat01/29/22 at 1235, Per Protocol, Warning Vesicant/Irritant Medication , Radiology Contrast, Routine Given 01/29/2022 12:35 PM EST 60 mLs documented in this encounter Care Teams Tripe Washer Relationship Specialty Start Date End Date Tami Olivia [address] [place] [address] PCP - General Family Medicine 12/30/20 documented as of this encounter
--- OUTSIDE RECORDS SUMMARY | 2023-12-11 17:35 | XMS_ITS | Encounter Summary ---
Author Organization [facility] Address [facility] [place] [address] Care Team Providers Care Bucket Chucker Name Role Phone Tami Olivia Primary Care Provider Encounter Details Date Type Department Care Team (Late st Contact Info) Description 11/08/2021 Orders [place] [address] Renu Donald PA [facility] DR [place] [address] Pleural effusion (Primary Dx) Social History Tobacco Use Types Packs/Day Years [...] as of this encounter Visit Diagnoses Diagnosis Pleural effusion- Primary Unspecified pleural effusion documented in this encounter Care Teams Bucket Chucker Relationship Specialty Start Date End Date Tami Olivia [address] [place] [address] PCP - General Family Medicine 12/30/20 documented as of this encounter
--- OUTSIDE RECORDS SUMMARY | 2023-12-11 17:35 | XMS_ITS | Encounter Summary ---
Author Organization [facility] Address [facility] [place] [address] Care Team Providers Care Production Repairer Name Role Phone Tami Olivia Primary Care Provider [phone] [phone] Encounter Details Date Type Department Care Team (Late st Contact Info) Description 01/30/2022 Telephone Thoracic Surgery at [facility] [place] [phone] Amy Corbett, RN Social History Tobacco Use Types Packs/Day Years Used Date Smoking Tobacco: Former Cigarettes 2 50 1 04/17/1970 - 02/14/2021 Smokeless Tobacco: Never Comments:1 ppd for the past year Sex and Gender Information Value Date Recorded Sex Assigned at Not on file Gender Identity Not on file Sexual Orientation Not on file documented as of this encounter Miscellaneous Notes * Telephone Encounter - Amy Corbett RN - 01/30/2022 1:21 PM EST Phone call to patient to schedule his procedure with Dr. Gutiérrez. Reviewed Xarelto hold for 3 full days prior to surgery. He verbalizes understanding. White box mailed with pre-op wash, IS and instructions. They will call when they receive the box with any questions. documented in this encounter Plan of Treatment Scheduled Procedures Name Priority Associated Diagnoses Date/Ti me ELECTROPHYSIOLOGY PROCEDURE Persistent atrial fibrillation CARDIOVERSION-ELECTIVE (WRVU 2) persistent atrial fibrillation TRANSESOPHAGEAL ECHOCARDIOGR AM (WRVU 2.3) persistent atrial fibrillation documented as of this encounter Visit Diagnoses Not on filedocumented in this encounter Care Teams Production Repairer Relationship Specialty Start Date End Date Tami Olivia [address] [place] [address] PCP - General Family Medicine 12/30/20 documented as of this encounter
--- OUTSIDE RECORDS SUMMARY | 2023-12-11 17:35 | XMS_ITS | Encounter Summary ---
Author Organization [facility] Address 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 Pleural effusion Procedures IR Thoracentesis Left Gilmer Gutiérrez MD [facility] [place] [address] [place] [address] Referral ID Status Reason Start Date Expiration Date V isits Requested Visits Authorized [id number] Closed Specialty Service Requested 10/30/2021 05/02/2023 1 1 Reason for Visit * Diagnostic Test (Routine) - Closed Specialty Diagnoses / Procedures Referred By Bert gautam Referred To Contact Radiology Diagnoses 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 Pleural effusion Procedures IR Thoracentesis Left Gilmer Gutiérrez MD [facility] [place] [place] [address] [place] [address] Referral ID Status Reason Start Date Expiration Date V isits Requested Visits Authorized [id number] Closed Specialty Service Requested 10/30/2021 05/02/2023 1 1 Encounter Details Date Type Department Care Team (Latest Contact Info) Description 11/08/2021 10:32 AM EDT - 11/08/2021 11:59 PM EDT Hospital Encounter Radiology at [facility] [place] [address] Gilmer Gutiérrez MD [facility] [place] [address] Squamous cell carcinoma of left lung; Status post lobectomy of lung; Pleural effusion Discharge Disposition: Home Social History Tobacco Use [...] Sign Reading Time Taken Comments Blood Pressure 160/65 11/08/2021 12:25 PM EDT Pulse 58 11/08/2021 12:20 PM EDT Temperature 36.5 ??C (97.7 ??F) 11/08/2021 11:23 AM E DT Respiratory Rate 12 11/08/2021 12:34 PM EDT Oxygen Saturation 97% 11/08/2021 12:25 PM EDT Inhaled Oxygen Concentration - - Weight - - Height - - Body Mass Index - - documented in this encounter Discharge Instructions * Discharge Instructions* Nely Canela RN - 11/08/2021 12:33 PM EDT [facility] Vascular and Interventional Radiology Discharge Instructions Following Your Thoracentesis (drainage of the fluid around your lung) Activity and Diet: Go home and rest quietly for the remainder of the day. You may resume your normal activities tomorrow. You may have received medication during your procedure to help with pain and keep you comfortable. These medications affect judgment and reaction time. Because of the sedation, be careful on stairs, as you may be unsteady on your feet. We recommend that you do not drive, operate equipment, sign any important documents, or smoke unattended for 24 hours following your procedure. Resume your usual diet after the procedure. Bandage: There is a sterile dressing over the puncture site consisting of a small gauze with a clear dressing (Tegaderm). This dressing should be left in place for 24 hours. If the clear dressing becomes loose, you should place tape over the edges to secure it in place. Bathing: Do not take a shower until 24 hours after your procedure; after this time you may shower with the dressing in place, then remove it and pat your skin dry. You may use a bandaid to cover the site if there is any drainage. When to call your healthcare provider: *If you notice bleeding or a bulge from the puncture site. You should apply firm pressure over the site for 10-15 minutes, keeping the site covered. If you are still bleeding after 10-15 minutes, reapply pressure, and have someone drive you to the nearest Emergency Department, or call 911. *If you develop chest pain that is not normal to you, shoulder or back, of if you develop shortnessof breath which is new, or worse than is normal for you, call 911 or go to the Emergency Departmentclosest to you. *If you develop pain, redness, drainage or swelling at or around the puncture site. *If you develop fever equal to or greater than 101F and/or shaking chills. *It is normal for your intravenous site to be slightly tender and red. You may use a warm compress to help with the symptoms. If tenderness or redness persists, or increases, or you notice drainage from the site, please contact your healthcare provider. When to call the Interventional Radiology Department: Please call with any questions or concerns. If it is during regular office hours, please call [phone]. If it is after regular office hours, or on weekends or holidays, please call [phone] and ask to speak to the [employer] television news photographer for Interventional Radiology. Revised 09/05/16 documented in this encounter Medications at Time of Discharge Medication Sig Dispensed Refills Start Date End Date sildenafiL (VIAGRA) 50 mg Tablet TAKE 1/2 [...] Daily. 02/17/2022 documented as of this encounter Progress Notes * Jose Ramon Leigh RN - 11/03/2021 5:44 PM EDT [facility] Name: RAJAN MARQUEZ Date of : 1950 AGE: 70 y.o. Address: [address] [place] [id number] Phone: [phone] (home) Mobile: Telephone Information: Referring Provider: Gilmer Gutiérrez REASON FOR VISIT: Order Questions Answers Where will study be performed? [facility] Radiology [120] What is the purpose of the study? Therapeutic and Diagnostic Reason for exam and clinical history: hx of Left upper Lobectomy for Squamous Cell Carcinoma on 03/29/2021, now with pleural effusion on Left, please perform thoracentesis for pathology/cytology and therapeutic Clinical information / bryan questions for radiologist: hx of Left upper Lobectomy for Squamous Cell Carcinoma on 03/29/2021, now with pleural effusion on Left, please perform thoracentesis for pathology/cytology and therapeutic Is the patient on anticoagulant / antiplatelet therapy ? Other Other meds: RIVAROXABAN Planned procedure: Left thoracentesis Labs to be performed day of procedure: Hemogram Sedation: Fentanyl only Prophylactic antibiotic : None Contrast: No contrast Additional medications for procedure: Lidocaine Consent: Pending Medications to discontinue (and days held): None Case Urgency:: G- Other (non E or F elective cases) Allergies Allergen Reactions ??? Cat Dander Runny eyes and nose ??? Dog Dander Runny eyes and nose Pertinent PMH: Patient Active Problem List Diagnosis Code ??? Mass of upper lobe of left lung R91.8 Date/Procedure Meds Given/Comments 11/08/21 Thoracentesis: 200 mL Fentanyl 100 mcg, IV. Lidocaine 1% local. Laboratory Results: Lab Results Component Value Date CREATININE 1.01 10/30/2021 Lab Results Component Value Date K 4.3 04/01/2021 Lab Results Component Value Date PLATELET 176 04/01/2021 documented in this encounter Plan of Treatment Scheduled Procedures Name Priority Associated Diagnoses Date/Ti me ELECTROPHYSIOLOGY PROCEDURE Persistent atrial fibrillation CARDIOVERSION-ELECTIVE (WRVU 2) persistent atrial fibrillation TRANSESOPHAGEAL ECHOCARDIOGR AM (WRVU 2.3) persistent atrial fibrillation documented as of this encounter Procedures Procedure Name Priority Date/Time Associated Diagnosis Comments IR THORACENTESIS LEFT Routine 11/08/2021 12:32 PM EDT 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 Pleural effusion NON-REMOTE COMPUTER TERMINAL OPERATOR FINAL REPORT Routine 11/08/2021 12:23 PM EDT CELL COUNT BODY FLUID Routine 11/08/2021 12:23 PM EDT CYTOPATHOLOGY NON-GYNECOLOGICAL Routine 11/08/2021 11:09 AM EDT documented in this encounter Results * IR Thoracentesis Left (11/08/2021 12:32 PM EDT) Anatomical Region Laterality Modality Chest Left X-Ray Angiograph y Narrative 11/08/2021 12:32 PM EDT IR Procedure Note Procedure: ?? US guided left thoracentesis History/indication: 70 yr old m patient, s/p left upper VATS lobectomy of stage IA3 mass in March 2021 (squamous cell Ca). Follow-up CT showed a small left effusion. Left thoracentesis is requested. Technique: ?After obtaining informed consent, the left posterior chest was examined with US. A small volume of pleural fluid is present. The posterolateral aspect was prepped and draped in a sterile fashion. 1% lidocaine (<10 cc) was used as local anesthesia. The patient received split doses of intravenous fentanyl from the IR nurse while pulse, pressure, end tidal CO2 parameters and oxygen saturation were continuously monitored. Under US guidance, a 21 gauge needle was advanced into the pleural space with spontaneous return of thin, yellow pleural fluid. Over a 0.018 wire, a 3 Fr inner micropuncture dilator with coaxial mounted Mondecaeh catheter was advanced. A total of 200 cc was removed by syringe aspiration and sent for the requested lab studies. A petroleum dressing was applied after removing the catheter. The patient tolerated the procedure well. Complications: ?None immediate; ??EBL=0 Medications: ??1% lidocaine (<10 cc); fentanyl 100 mcg Findings: 1. ??Small left pleural effusion by US evaluation 2. US guided thoracentesis with removal of 200 cc as above. Attending: ?Ronit Ramirez MD ? I was present during the intraservice time as documented by the IR Nurse. Gilmer Gutiérrez MD IMG IR ORDERABLE S * Non-Account Service Representative Final Report (11/08/2021 12:23 PM EDT) Diagnosis Discussion [id number] ? Location: [facility] The signing pathologist has (i) examined the relevant preparation(s) for the specimen(s) and (ii) rendered or confirmed the diagnosis(es). . ? Non-Account Service Representative Final DIAGNOSIS See Discussion Electronically signed by: ?Rory Sterling MD Verified: ??11/11/2021 11:10 ??Cytopathologis t Performed at: ??-[facility] Dept. of Pathology, [place], [place] DISCUSSION Pleural fluid: left (thoracentesis) - The sample consists predominantly of small lymphocytes and fibrin. Negative for metastatic carcinoma. No cytologically malignant cells seen. (Cell block was examined.) CLINICAL INFORMATION Specimen Source : Pleural fluid: left (thoracentesis) Pertinent Clinical Data and Significant Therapy: Squamous cell carcinoma of lung s/p lobectomy with new pleural fluid Clinical Impression : Pleural fluid Pertinent Radiologic Findings ??: (not provided) Gross Description: Received ??fresh, approximately 180 mL total volume of ?? cloudy, yellow fluid. Total Preparation: Liquid-Based Prep 1; Cell Block 1. 11/11/2021 11:10 AM EDT [facility] LEFT PLEURAL FLUID / Unknown 11/08/2021 12:23 PM EDT 11/08/2021 12:23 PM EDT Gilmer Gutiérrez MD PATHOLOGY/CYTOLO GY ORDERABLES [facility] [place] [address] * Cell Count Body Fluid (11/08/2021 12:23 PM EDT) Body Fluid Source Pleural Fl M [facility] Color, Fld Yellow [facility] Appearance, Fld Clear [facility] WBC Count, Fld 455 <=499 /mcl [facility] Comment: All body fluid results should always be interpreted in light of the total clinical presentation of the patient, including clinical history, data from additional tests and other appropriate information. Polymorphonuclear cells BF % 4 % [facility] Comment: Polymorphonuclear cell percent and absolute values may contain Neutrophils, Eosinophils, and Basophils. Body fluid smear will be scanned manually for concordance. Mononuclear cells BF % 451 % [facility] Comment: Mononuclear cell percent and absolute values may contain Lymphocytes and Monocytes. Body fluid smear will be scanned manually for concordance. Polymorphonuclear cells BF ABS 1 /[facility] Comment: Polymorphonuclear cell percent and absolute values may contain Neutrophils, Eosinophils, and Basophils. Body fluid smear will be scanned manually for concordance. Mononuclear cells BF ABS 99 /[facility] Comment: Mononuclear cell percent and absolute values may contain Lymphocytes and Monocytes. Body fluid smear will be scanned manually for concordance. Pleural Fluid Other / Unknown 11/08/2021 12:23 PM EDT 11/08/2021 1:33 PM EDT Narrative Resulting Agency Comment Spec In Lab Renu WILSON BODY FLUIDS AND STO OLS ORDERABLES Performing Organization Address City/[facility]/ZIP Co de Phone Number [facility] [place] [address] * Cytopathology Non-Gynecological (11/08/2021 11:09 AM EDT) AP Specimen 11/08/2021 11:0 9 AM EDT 11/08/2021 11:09 AM EDT Narrative [facility] - 11/08/2021 11:09 AM EDT Specimen requisition ordered. ??Separate Pathology report to follow Sloan Parker DO PATHOLOGY/CYTOLOGY O RDERABLES Performing Organization Address City/[facility]/ZIP Co de Phone Number [facility] [place] [address] documented in this encounter Visit Diagnoses Diagnosis 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 Other postprocedural status Pleural effusion Unspecified pleural effusion documented in this encounter Administered Medications Inactive Administered Medications - up to 3 most recent administrations Medication Order MAR Action Action Date Dose Rate Site fentaNYL (pf) (50 mcg/mL) multi-dose injection 25-50 mcg 25-50 mcg, Intravenous, EVERY 3 MIN PRN, Starting on Sat11/08/21 at 1133, Until Sat11/08/21 at 1252, Pain, per unit protocol, - Start dose 50 mcg (reduce dose to 25 mcg if history of sedation sensitivity). - Titration dose 25-50 mcg IV, (based on patient response) every 3 minutes PRN, to maintain procedural pain less than 2 per pain Scale. Maximum dose: 50 mcg/dose, 250 mcg/hour For use in Interventional Radiology (IR) only for procedural sedation with direct provider supervision and verbal order., Angio/IR (Day of Procedure), Routine Given 11/08/2021 12:16 PM EDT 25 mcg Given 11/08/2021 12:12 PM EDT 25 mcg Given 11/08/2021 12:07 PM EDT 50 mcg lidocaine (Xylocaine) 1% (10 mg/mL) injection 10 mg 10 mg, Subcutaneous, ONCE, 1 dose, On Sat11/08/21 at 1200, For use in Interventional Radiology (IR) only for procedure with direct provider supervision and verbal order., Angio/IR (Day of Procedure), Routine Given 11/08/2021 12:09 PM EDT 10 mg documented in this encounter Care Teams Customer Solutions Specialist Relationship Specialty Start Date End Date Tami Olivia [address] [place] [address] PCP - General Family Medicine 12/30/20 documented as of this encounter
--- OUTSIDE RECORDS SUMMARY | 2023-12-11 17:35 | XMS_ITS | Encounter Summary ---
Author Organization [facility] [place] [address] Care Team Providers Care Utility Mechanic Supervisor Name Role Phone Tami Olivia Primary Care Provider Reason for Visit * Reason Onset Date Comments Other 11/03/2021 Encounter Details Date Type Department Care Team (Late st Contact Info) Description 11/03/2021 Telephone [place] [phone] Megan Reza RN Other Social History Tobacco Use Types [...] Telephone Encounter - Megan Reza RN - 11/03/2021 2:17 PM EDT TC to Mr. Jimmy Marquez is scheduled for his IR thoracentesis for 11/08/2021 at 10:30 am arrival in radiology receptionist area . He is aware and in agreement with this plan. documented in this encounter Plan of Treatment Scheduled Procedures Name Priority Associated Diagnoses Date/Ti me ELECTROPHYSIOLOGY PROCEDURE Persistent atrial fibrillation CARDIOVERSION-ELECTIVE (WRVU 2) persistent atrial fibrillation TRANSESOPHAGEAL ECHOCARDIOGR AM (WRVU 2.3) persistent atrial fibrillation documented as of this encounter Visit Diagnoses Not on filedocumented in this encounter Care Teams Utility Mechanic Supervisor Relationship Specialty Start Date End Date Tami Olivia [address] [place] [address] PCP - General Family Medicine 12/30/20 documented as of this encounter
--- OUTSIDE RECORDS SUMMARY | 2023-12-11 17:35 | XMS_ITS | Encounter Summary ---
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 Procedures CT Chest w Contrast Gilmer Gutiérrez MD [facility] [address] [facility] [place] [address] Referral ID Status Reason Start Date Expiration Date V isits Requested Visits Authorized [id number] Closed Specialty Service Requested 11/14/2021 05/15/2023 1 1 Encounter Details Date Type Department Care Team (Late st Contact Info) Description 11/14/2021 Orders [place] [address] Gilmer Gutiérrez MD [facility] [place] [address] Status post lobectomy of lung; Primary squamous [...] who have questions please contact the health personal care service provider that requested your imaging first. ? Electronically signed by: Ludivina Cummings MD, [facility] ([phone]), at 01/29/2022 3:05 PM Narrative 01/29/2022 3:05 [...] patients who have questions please contactthe health personal care service provider that requested your imaging first. Electronically signed by: Ludivina Cummings MD, [facility]([phone]), at 01/29/2022 3:05 PM Gilmer Gutiérrez MD IMG CT ORDERABLE S * Creatinine (01/29/2022 11:45 AM EST) Creatinine 1.11 0.80 - 1.50 mg/dL [facility] Est Glomerular Filtration Rate 71 >=60 mL/min/1. 73 m?? [facility] Comment: This patient's estimated GFR [...] and symptoms in addition to eGFR. 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
--- OUTSIDE RECORDS SUMMARY | 2023-12-11 17:35 | XMS_ITS | Encounter Summary ---
Author Organization [facility] Address [facility] [place] [address] Care Team Providers Care Director Pharmaceutical Name Role Phone Tami Olivia Primary Care Provider [phone]- [phone] Reason for Visit * Reason Onset Date Comments Other 02/13/2022 Encounter Details Date Type Department Care Team (Late st Contact Info) Description 02/13/2022 Telephone Thoracic Surgery at [facility] [place] [phone] Megan Reza, RN Other Social History Tobacco [...] Telephone Encounter - Megan Reza RN - 02/13/2022 10:06 AM ESTSummary: post op call TC to Mr. Marquez Hx: s/p L VATS Pleura biopsy 02/08/2022, air leak, Xarelto for afib Unable to reach Mr. Marquez, left a message requesting a call back to check in. Awaiting call back. TC back to Mr. Jimmy Marquez and his friend are doing well. He still has an air leak noted I saw many bubbles. He denies any pain, fevers, chills, sweats, redness, swelling or drainage. He is using his IS more as directed yesterday and pulling [phone]. VNA returning on 02/15/22. Will check in and he will continue to check for his air leak. They knows to call with any questions or concerns. documented in this encounter Plan of Treatment Scheduled Procedures Name Priority Associated Diagnoses Date/Ti me ELECTROPHYSIOLOGY PROCEDURE Persistent atrial fibrillation CARDIOVERSION-ELECTIVE (WRVU 2) persistent atrial fibrillation TRANSESOPHAGEAL ECHOCARDIOGR AM (WRVU 2.3) persistent atrial fibrillation documented as of this encounter Visit Diagnoses Not on filedocumented in this encounter Care Teams Director Pharmaceutical Relationship Specialty Start Date End Date Tami Olivia [address] [place] [address] PCP - General Family Medicine 12/30/20 documented as of this encounter
--- OUTSIDE RECORDS SUMMARY | 2023-12-11 17:35 | XMS_ITS | Encounter Summary ---
Author Organization [facility] [place] [address] Care Team Providers Care Weigher And Crusher Name Role Phone Tami Olivia Primary Care Provider [phone]- [phone] Encounter Details Date Type Department Care Team (Late st Contact Info) Description 02/19/2022 Telephone Thoracic Surgery at [facility] [place] [phone] Megan Reza RN Social History Tobacco Use [...] Telephone Encounter - Megan Reza RN - 02/19/2022 7:31 AM EST Entered in error documented in this encounter Plan of Treatment Scheduled Procedures Name Priority Associated Diagnoses Date/Ti wi ELECTROPHYSIOLOGY PROCEDURE Persistent atrial fibrillation CARDIOVERSION-ELECTIVE (WRVU 2) persistent atrial fibrillation TRANSESOPHAGEAL ECHOCARDIOGR AM (WRVU 2.3) persistent atrial fibrillation documented as of this encounter Visit Diagnoses Not on filedocumented in this encounter Care Teams Weigher And Crusher Relationship Specialty Start Date End Date Tami Olivia [address] [place] [address] PCP - General Family Medicine 12/30/20 documented as of this encounter
--- OUTSIDE RECORDS SUMMARY | 2023-12-11 17:35 | XMS_ITS | Encounter Summary ---
Author Organization [facility] Address [facility] [place] [address] Care Team Providers Care Head Of Mobile Name Role Phone Tami Olivia Primary Care Provider Encounter Details Date Type Department Care Team (Late st Contact Info) Description 01/03/2022 Ancillary Procedure Radiology Library at [facility] KAITLYNN Bright [id number] Gilmer Gutiérrez MD [facility] [place] [address] Social History Tobacco Use Types Packs/Day Years [...] Procedure Name Priority Date/Time Associated Diagnosis Comments FILM LIBRARY STORAGE ONLY CT CHEST Routine 01/03/2022 12:00 AM EDT documented in this encounter Results * Film Library- Storage Only CT Chest (01/03/2022 12:00 AM EDT) Narrative [facility] - 01/04/2022 7:48 PM EDT This exam is auto-finalizing. It's purpose is for storage only. Gilmer Gutiérrez MD IMG FILM LIBRARY ORDERABLES DH RAD [place], [place] documented in this encounter Visit Diagnoses Not on filedocumented in this encounter Care Teams Head Of Mobile Relationship Specialty Start Date End Date Tami Olivia [address] [place] [address] PCP - General Family Medicine 12/30/20 documented as of this encounter
--- OUTSIDE RECORDS SUMMARY | 2023-12-11 17:35 | XMS_ITS | Encounter Summary ---
Author Organization [facility] [place] [address] Care Team Providers Care Contract Graphic Designer Name Role Phone Tami Olivia Primary Care Provider [phone] Encounter Details Date Type Department Care Team (Late st Contact Info) Description 02/12/2022 Telephone Thoracic Surgery at [facility] [place] [id number] Megan Reza, RN Social History Tobacco Use [...] Telephone Encounter - Megan Reza RN - 02/12/2022 2:11 PM EST TC from Basilia VASQUEZ with SHAUNNA Cui is stating that Mr. Marquez was having an irregular heart rate when she first arrived for her visit. HR 140-145, then down to 80. His BP was 94/54 but feeling great. She changed his dressing on hischest tube without any difficulty. He is on metoprolol and rivaroxaban. Will check in tomorrow but he knows to go to the emergency room if he becomes symptomatic. documented in this encounter Plan of Treatment Scheduled Procedures Name Priority Associated Diagnoses Date/Ti tn ELECTROPHYSIOLOGY PROCEDURE Persistent atrial fibrillation CARDIOVERSION-ELECTIVE (WRVU 2) persistent atrial fibrillation TRANSESOPHAGEAL ECHOCARDIOGR AM (WRVU 2.3) persistent atrial fibrillation documented as of this encounter Visit Diagnoses Not on filedocumented in this encounter Care Teams Contract Graphic Designer Relationship Specialty Start Date End Date Tami Olivia [address] [place] [address] PCP - General Family Medicine 12/30/20 documented as of this encounter
--- OUTSIDE RECORDS SUMMARY | 2023-12-11 17:35 | XMS_ITS | Encounter Summary ---
Author Organization [facility] Address [facility] [place] [address] Care Team Providers Care Food Aide Name Role Phone Tami Olivia Primary Care Provider [phone] Encounter Details Date Type Department Care Team (Late st Contact Info) Description 02/19/2022 11:59 PM EST Anesthesia Event [place] [address] Verna Anton MD [facility] DR [place] [address] Anesthesia Record Procedure Summary Procedure Name Responsible Anesthesiologist Anesthesia Start Time Anesthesia Stop Time CARDIOVERSION-ELECT FIDEL (WRVU 2) Events No events on file. Meds * Agents No agents on file. * Blood No blood administrations on file. Lines, Drains, and Airways Type Details Placement Removal Incision 05/18/22; 1000; Left ; back; transverse 05/18/22 1000 by Sanket Murphy, RN Chest Tube 05/18/22; 1318; Left ; 28Fr straight 05/18/22 1318 by Sanket Murphy, RN documented in this encounter Social History [...] of this encounter OR Notes * Anesthesia Preprocedure Evaluation - Verna Anton MD - 02/19/2022 11:51 AM EST Pre-Anesthesia Evaluation for: Rajan Marquez a 71 y.o. male. Procedure(s): CARDIOVERSION-ELECTIVE (WRVU 2.25) Patient Active Problem List Diagnosis Date Noted ??? *Atrial flutter 02/17/2022 ??? Pleural effusion 02/08/2022 ??? [...] Thoracentesis Left 11/08/2021 Forauer, Ramírez Ziegler MD [facility] INTERVENTIONL RAD ??? PRO BRONCHOSCOPY, DIAGNOSTIC N/A 03/29/2021 BRONCHOSCOPY, DIAGNOSTIC (WRVU 2.78) performed by Gilmer Gutiérrez MD at [facility] MAIN OR ??? PRO BRONCHOSCOPY, DIAGNOSTIC N/A 02/08/2022 BRONCHOSCOPY, DIAGNOSTIC (WRVU 2.78) performed by Gilmer Gutiérrez MD at [facility] MAIN OR ? ? PRO INJECTION ANES AGENT &/ STEROID INTERCOSTAL NERVE SINGLE LEVEL Left 03/29/2021 NERVE BLOCK, INTERCOSTAL NERVE (WRVU 1.18) performed by Gilmer Gutiérrez MD at [facility] MAIN OR ??? PRO THORACOSCOPY SURG LOBECTOMY Left 03/29/2021 @THORACOSCOPY,SURGICAL,W\LOBECTOMY,TOTAL OR SEGMENTAL (WRVU 24.64) performed by Johaan Gtuiérrez MD at [facility] MAIN OR ??? PRO THORACOSCOPY WITH BIOPSY OF PLEURA Left 02/08/2022 THORACOSCOPY; WITH BIOPSY(IES) OF PLEURA (WRVU 4.58) [facility] ??? PRO THORACOSCOPY WITH MEDIASTINAL AND REGIONAL LYMPHADENECTOMY 03/29/2021 @THORACOSCOPY, SURG; W/MEDIASTINAL& REGIONAL LYMPHADENECTOMY (WRVU 4.12) performed by Gilmer Gutiérrez MD at [facility] MAIN OR ??? PRO THORACOSCOPY WITH WEDGE RESECTION AND ANATOMIC LUNG RESECTN Left 03/29/2021 @THORACOSCOPY, SURG; W/DX WEDGE RESC W/ANATOMIC LUNG RESC (WRVU 3) performed by Johana Gutiérrez MD at [facility] MAIN OR Social History Tobacco Use [...] Physical Exam: Preprocedure Vitals Current as of 02/19/22 1151 BP: 97/63 Pulse: Resp: 18 SpO2: 98 Temp: Height: 172.7 cm (5' 7.99) (02/18/22) Weight: 72.5 kg (159 lb 13.3 oz) (02/19/22) BMI: 24.31 IBW: 68.4 kg (150 lb 12.1 oz) Last edited 02/19/22 1034 by NF Currently displaying vitals information from multiple entries within 180 minutes of most recent vitals. Anesthesia Physical Exam Last Filed Perioperative Cognitive Screening Value Time User 4AT TOTAL Score: 0 03/29/2021 8:00 PM Vanessa Salcedo RN Anesthesia Plan: ASA 3 general, with a(n) intravenous induction Rajan Marquez is a 71 y.o. patient presenting for cardioversion. 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 Stress Test 02/2021 - 4.6 METS with frequent PVCs, PACs - no scar or ischemia ?? PFTs 02/13/21 - normal FEV1, FVC and FEV1/FVC. Normal DLCO TTE 02/18/2022: Patient is in 2:1 atrial flutter. Left ventricle is normal in size with mild hypertrophy and sigmoid septum. There is probably normal global systolic function; cannot accurately quantify due to signficant tachyarrhythmia. Right ventricle is normal in size and function. Normal left atrial size. No hemodynamically significant valve disease. IVC is non-dilated and non-plethoric. ?? Anesthesia history: 2 handed mask with oral airway, grade 1 view DL with MAC 4. Plan: GA with [place] airway with possible LMA, given history of difficult mask. The patient was informed of the risks, benefits and alternatives of anesthesia. These risks included, but were not limited to, post-operative nausea and/or vomiting, pain, sore throat, dental/lip injury, and other rare but serious complications such as cardiac instability/arrest, neurologic event, awareness, severe allergic reactions, position-related nerve injuries, and need blood transfusions. All questions sought and answered. Region - Other Informed Consent: Anesthetic plan and risks discussed with patient. Use of blood products discussed with patient who consented to blood products. Plan discussed with attending. Anesthesia Screening documented in this encounter Plan of Treatment Scheduled Procedures Name Priority Associated Diagnoses Date/Ti me ELECTROPHYSIOLOGY PROCEDURE Persistent atrial fibrillation CARDIOVERSION-ELECTIVE (WRVU 2) persistent atrial fibrillation TRANSESOPHAGEAL ECHOCARDIOGR AM (WRVU 2.3) persistent atrial fibrillation documented as of this encounter Visit Diagnoses Not on filedocumented in this encounter Care Teams Food Aide Relationship Specialty Start Date End Date Tami Olivia [address] [place] [address] PCP - General Family Medicine 12/30/20 documented as of this encounter
--- OUTSIDE RECORDS SUMMARY | 2023-12-11 17:35 | XMS_ITS | Encounter Summary ---
Author Organization [facility] Address [facility] [place] [address] Care Team Providers Care Detail Supervisor Name Role Phone Tami Olivia Primary Care Provider Encounter Details Date Type Department Care Team (Latest Contact Info) Description 01/29/2022 Travel Social History Tobacco Use Types Packs/Day [...] on filedocumented in this encounter Care Teams Detail Supervisor Relationship Specialty Start Date End Date Tami Olivia [address] [place] [address] PCP - General Family Medicine 12/30/20 documented as of this encounter
--- OUTSIDE RECORDS SUMMARY | 2023-12-11 17:35 | XMS_ITS | Encounter Summary ---
Author Organization [facility] [place] [address] Care Team Providers Care Gem Setter Name Role Phone Tami Olivia Primary Care Provider [phone] Reason for Referral * Home Health Care (Routine) - Closed Specialty Diagnoses / Procedures Referred By Bert gautam Referred To Contact Diagnoses Mass of upper lobe of left lung Tami Olivia [address] [place] [address] [facility] [address] [place] [address] Referral ID Status Reason Start Date Expiration Date V isits Requested Visits Authorized [id number] Closed Consult, Test & Treat 02/19/2022 08/18/2022 999 999 Reason for Visit * Reason Comments Wound Check (Drain problem) * Auth/Cert (Routine) Specialty Diagnoses / Procedures Referred By Bert gautam Referred To Contact Diagnoses Atrial flutter Procedures EMERGENCY Casa Rm MD [facility] [place] [address] [facility] Referral ID Status Reason Start Date Expiration Date Visits Re quested Visits Authorized [id number] 1 1 Encounter Details Date Type Department Care Team (Latest Contact Info) Description 02/17/2022 12:56 PM EST - 02/21/2022 1:04 PM EST Hospital Encounter Intermediate [place] [id number] Sommer Pryor MD [facility] [place] [address] Casa Alarcon MD [facility] [place] [address] Ramon Garcia MD [facility] [place] [address] Atrial flutter (Primary Dx); Mass of upper lobe of left lung Discharge Disposition: Home with VNA Social History Tobacco Use Types Packs/Day Years [...] Sign Reading Time Taken Comments Blood Pressure 108/71 02/21/2022 11:33 AM EST Pulse 125 02/21/2022 11:33 AM EST Temperature 37 ??C (98.6 ??F) 02/21/2022 11: 33 AM EST Respiratory Rate 18 02/21/2022 11:3 3 AM EST Oxygen Saturation 99% 02/21/2022 11: 33 AM EST Inhaled Oxygen Concentration - - Weight 72.9 kg (160 lb 11.5 oz) 02/21/2022 4:21 AM EST Height 172.7 cm (5' 7.99) 02/18/2022 5:00 AM ES T Body Mass Index 24.44 02/18/2022 5:00 AM EST documented in this encounter Discharge Summaries * Rosalie Champagne PA - 02/21/2022 9:52 AM EST Images from the original note were not included. Discharge Summary Patient Name: Rajan Faulkner Patient Age: 71 y.o. Language: Swazi Race: White Ethnicity: Not nor Admit date: 02/17/2022 Discharge date and time: 02/19/2022 Attending Physician: Ramon Garcia MD Discharge Physician: Ramon Garcia MD Follow-up Recommendations for Providers: Rajan Faulkner is a 71 y.o. male who presented to the emergency department for evaluation of his poorly draining left-sided chest tube. He was found to be in asymptomatic atrial flutter with 2:1 conduction with heart rates in the 120s-140s. #Atrial flutter with rapid ventricular response #History of paroxysmal atrial fibrillation -Transthoracic echocardiogram on 02/18/2022 showed likely normal ejection fraction (difficult to assess given tachyarrhythmia) and was without wall motion abnormalities. -Self converted to NSR with PACs on 02/19/22 -Reverted to Aflutter/Afib RVR on 02/19/22 -S/p IV Amiodarone infusion and PO Amiodarone taper on discharge -Discharged with RVR rates 120bpm though patient completely asymptomatic -Continue metoprolol succinate 25mg daily. Continue home Xarelto 20mg daily. -May restart home Lisinopril as an outpatient if blood pressure is hypertensive #Hydropneumothorax -Known to Thoracic Surgery at [facility] -Chest tube removed on 02/19/22 -Follow up with Thoracic Surgery in 2 weeks for repeat CXR Inpatient Provider Contact Information: MD Eren Flores PA-C Elise Bishop-Rimmer, PA-C Cardiovascular Medicine [phone] Discharge Diagnoses (Hospital Problems) and Secondary Diagnoses (Chronic Problems): Active Hospital Problems Diagnosis ??? Atrial flutter Resolved Hospital Problems No resolved problems to display. Active Non-Hospital Problems Diagnosis ??? Pleural effusion ??? Mass of upper lobe of left lung ??? ADHD ??? COPD (chronic obstructive pulmonary disease) ??? Depression ??? Lupus anticoagulant positive ??? Palpitations ??? Tobacco abuse ??? Unspecified osteoarthritis, unspecified site Pertinent Radiographic/Diagnostic Results: Transthoracic Echocardiogram 02/18/2022 Interpretation Summary Patient is in 2:1 atrial flutter. Left ventricle is normal in size with mild hypertrophy and sigmoid septum. There is probably normalglobal systolic function; cannot accurately quantify due to signficant tachyarrhythmia. Right ventricle is normal in size and function. Normal left atrial size. No hemodynamically significant valve disease. IVC is non-dilated and non-plethoric. History of Presentation: Rajan Faulkner is a 71 y.o. male with PMH of ASCVD, Afib ( on Xarelto), HTN, COPD, lung cancer s/p ARACELI resection in 03/2021 c/b pleural effusion, s/p left sided chest tube on 02/08 for recurrent pleural effusion , former smoker, depression, RS3PE, GERD, BPH who presented to the ED for evaluation for chest tube. ?? As per pt he was doing fine since discharged from the hospital on 02/10. His chest tube was draininguntil last night. His fiance try to irrigate and suction it but it didn't work. He called thoracic surgery in the morning who advised him to come to the hospital. Besides the chest tube not draining,he denies chest pain but noticed a lump at the site of chest pain. No fever, chills, chest pain, palpitations, orthopnea, PND or pedal edema reported. ?? In the ED pt was afebrile, HR 140s, BP 120/70-100, 100% on RA. Labs with wbc 10, H&H 11/33, Gsc700, BUN 16, Cr 1. EKG Aflutter with RVR with HR in 140s. ?? Pt received metoprolol 5 mg IV x3 but he remained in Aflutter with 2:1 block. ?? At the time of my evaluation, he denies palpitations, dizziness, lightheadedness, chest pain, shortness of breath, fever, chills. Off note pt held his xarelto for 4 days before surgery on 02/08. Hospital Course: Atrial flutter with RVR History of paroxysmal atrial fibrillation Rajan Faulkner is a 71 y.o. male who was admitted to the cardiology service for evaluation and management of asympomatic atrial flutter with rapid ventricular response. He underwent a rapid bedside echocardiogram where he was originally thought to have a reduced LVEF of ~35%. His heart rates remained in the 120-140s despite IV beta blockade and digitalis loading. Admission ProBNP ~3,000 without appearing in overt heart failure. TSH 1.36. Held his home Xarelto and was placed on therapeutic anticoagulation via IV heparin infusion. Given his lack of symptoms and lack of therapeutic response to rate control, he was admitted to the cardiology service for optimization while awaiting cardioversion. Transthoracic echocardiogram was performed on 02/18/2022 which showed a likely normal ejection fraction (difficult to assess given tachyarrhythmia) and was without wall motion abnormalities. Secondary to reported lapses in his therapeutic anticoagulation surrounding a recent procedure (4 days around 02/08) he was planned for HARSH with cardioversion. On 02/19/22 he self-converted to NSR briefly. Unfortunately he quickly reverted to Afib RVR and intermittent Aflutter RVR with rates persistently 160bpm. As patient self-converted and reverted he underwent anti-arrhythmic strategy with Amiodarone. He was given IV Amiodarone infusion 02/20-02/21 and started on a PO Amiodarone taper on discharge. Hewas instructed to completed Amiodarone 400mg BID x 7 days ; 400mg daily x 7 days ; 200mg daily thereafter. He was discharged with rates 120-130bpm. As he was completely asymptomatic and hemodynamically stable it was determined he would continue his Amiodarone loading at home. If he remains in Aflutter he should undergo cardioversion post Amiodarone load. He was arranged to follow up with Dr. Neeru Vasquez [facility]. He will follow up with his PCP Discharged on Amiodarone tape as above, Toprol 25mg daily, Xarelto 20mg daily, home Lisinopril on hold unless hypertensive as outpatient. ?? Hx of ARACELI lung cancer s/p VATS with recurrent pleural effusion Patient with a history of lung cancer s/p left upper lobectomy in March 2021 complicated by recurrent pleural effusion now s/p chest tube placement on 02/08. He presented to the Emergency Departmentrequesting evaluation of his??dry seal??atrium, as it has not been draining for 1 day prior to admission. Chest tube was placed to a regular atrium on water seal.Thoracic surgery followed for chest tube and effusion management throughout his stay. Interval CXRs ordered as directed by the thoracic team. His chest tube was removed on 02/19/22. He will follow up with the Thoracic Surgery team in 2 weeks for a repeat Chest X-Ray. HTN Remained hemodynamically stable since presentation, despite rapid heart rates. Metoprolol was up-titrated to 12.5mg every 6hrs. His home lisinopril was held to secure more blood pressure room. This remained on hold on discharged. He was continued on his home Toprol 25mg daily ?? Anxiety Continued on his home Wellbutrin. ?? COPD Hx of smoking Quit 1 yr ago, encouraged continued cessation. He was ordered as needed nebulizer for wheezing. Continued home spiriva. ?? BPH: Continued home tamsulosin. GERD: Continued PPI. RS3PE: Continued plaquenil. Functional and Cognitive Status: Baseline Important Studies and Lab Data: Labs: Lab Results Component Value Date WBC 12.3 (H) 02/21/2022 HGB 10.0 (L) 02/21/2022 HCT 30.2 (L) 02/21/2022 PLATELET 310 02/21/2022 No results for input(s): INR in the last 168 hours. Lab Results Component Value Date NA 135 02/21/2022 K 4.0 02/21/2022 CL 101 02/21/2022 CO2 24 02/21/2022 BUN 16 02/21/2022 CREATININE 1.04 02/21/2022 Recent Labs 02/17/22 1350 TSH 1.36 No results for input(s): HA1C in the last 7068 hours. No results for input(s): CK, TROPONINT in the last 168 hours. Pending Studies and Lab Data: None Discharge Conditions/Prognosis: Stable Discharge to: Home Updated Allergies/ADRs: Allergies Allergen Reactions ??? Cat Dander Runny eyes and nose ??? Dog Dander Runny eyes and nose Immunizations Given this Hospitalization: There is no immunization history on file for this patient. Discharge Medications: Your Medications New Medications Dose Details * AMIOdarone 200 mg Tab Commonly known as: Paceron Take 2 tablets by mouth 2 times daily for 5 days, THEN 2 tablets daily for 7 days. Start taking on: February 21, 2022 Quantity: 34 tablet Refills: 0 * AMIOdarone 200 mg Tab Commonly known as: Paceron Take 1 tablet by mouth daily. Start taking on: March 05, 2022 200 mg Quantity: 30 tablet Refills: 11 * This list has 2 medication(s) that are the same as other medications prescribed for you. Read thedirections carefully, and ask your doctor or other care provider to review them with you. Continued medications, unchanged Dose Details acetaminophen 500 mg Tab Commonly known as: Tylenol Take 2 tablets by mouth every 6 hours. 1,000 mg Quantity: 30 tablet Refills: 1 cholecalciferol 1,000 unit Tab Commonly known as: Vitamin D3 Take 1 tablet by mouth daily. 1 tablet Refills: 0 hydrOXYchloroQUINE 200 mg Tab Commonly known as: Plaquenil Take 200 mg by mouth Daily. 200 mg Refills: 0 metoprolol succinate XL 25 mg Tablet sr Commonly known as: Toprol-XL Take 25 mg by mouth daily. 25 mg Refills: 0 omeprazole 20 mg Cpdr Commonly known as: PriLOSEC Take 20 mg by mouth daily. 20 mg Refills: 0 Proair Digihaler 90 mcg/actuation Aebs 4 times daily as needed. Generic drug: albuterol sulfate Refills: 0 rivaroxaban 20 mg Tab Commonly known as: Xarelto Take 20 mg by mouth daily. 20 mg Refills: 0 sildenafiL 50 mg Tab Commonly known as: VIAGRA TAKE 1/2 TO 1 TABLET BY MOUTH [...] by mouth daily. 150 mg Refills: 0 STOPPED Medications docusate sodium 100 mg Cap Commonly known as: Colace fluticasone furoate-vilanteroL 200-25 mcg/dose Dsdv Commonly known as: Breo Ellipta lisinopriL 10 mg Tab Commonly known as: Zestril senna 8.6 mg Tab Commonly known as: Senokot Smoking Status at Discharge: Social History Tobacco Use Smoking Status Former ??? Years: 50.00 ??? Types: Cigarettes Smokeless Tobacco Never Tobacco Comments 1 ppd for the past year Instructions Given to Patient at Discharge: Patient Instructions You were hospitalized for evaluation of your irregular heart rhythm called atrial flutter. Treatingthis condition is important for several reasons. It can cause blood clots, which can travel from your heart to your brain and cause a stroke. If you have a fast heartbeat, you may experience chest pain, shortness of breath, lightheadedness, or an overall weakness. An irregular heartbeat can also increase your risk for heart failure. Your home dose of metoprolol, a medication to slow down your heart beat, was temporarily increased.We held your home Xarelto and started you on a blood thinner called heparin to help prevent blood clots from forming in your heart. You may continue your home Xarelto on discharge. You must continue on Xarelto and it is very important you do not miss any doses. Your community support worker will decide if you should stay on this medication. If you have certain risk factors that put you at higher risk of stroke, it is likely you will continue on this medication life-long. Call your doctor if: Chest pain, dyspnea, pain or swelling in legs occurs, or for weight gain of 2 pounds overnight or 5pounds in 5 days. If you have non-emergent questions, prior to your follow-up visit call: Saturday-Saturday between the hours of 8AM-5PM please call the Cardiology Clinic [phone] to speak with a nurse. All other hours please call the Hospital Service Attendant [phone] and ask to speak to the cable weaver on-call. Follow up Appointments: Doctor Where Phone # Date Time PCP Tami Triana [address] [place] [address] 03/01/22 At 3:30pm Director Of Content Marketing - Dr. [facility] Cardiology [phone] 03/29/22 At 11:00AM Home oxygen therapy: N/A Arrangements for VNA/home care: Yes 1. Please follow up with your Thoracic Surgery team in 2 weeks for a repeat chest X-Ray 2. Please Take Amiodarone 400mg Twice a day for 5 more days. Then take Amiodarone 400mg once per day for 7 days. Then take Amiodarone 200mg once per day until your doctor instructs you to stop this medication. 3. Please do not take your Lisinopril until your doctor tells you to restart this General Instructions Thoracic Surgery Call if you have a fever of greater than 101 degrees, shaking chills, develop redness or drainage from your incision site(s), or if you have questions. During normal business hours, Saturday- Saturday 8:00 a.m.-5:00 p.m., please call to speak to a nurse in the Thoracic Clinic at [phone]. After hours or on weekends or holidays please call: [phone] and ask to speak to the Thoracic Surgeon on c all. Shower/Bath: You may shower daily starting 2 days after chest tube removal, no bathing or swimming until your follow-up appointment. Incision [...] remain off once there is no drainage. If you have steri-strips over an incision site, these will remain in place for 7-10 days. You may shower with them, and they will fall off naturally in 7-10 days. If they do not fall off by 10 days, you may remove them. Future Appointments and Orders Future Appointments and Orders Future Appointments Provider Department Dept Phone 03/06/2022 12:[address] [facility] XRAY ROOM 1 XRay at [facility] Arrive at: Chief Legal Officer Area Please go to Chief Legal Officer Area 3 ([facility] Location). 03/06/2022 1:00 PM Gilmer Foster MD Thoracic Surgery at [facility] Arrive at: Chief Legal Officer Area [phone] Future Orders Complete By Expires Referral to Home Health [REF34 Custom] As directed Process Instructions: If no progress note charted, please enter Clinical details in comments. Scheduling Instructions: Comments: Please evaluate Rajan Faulkner for admission to Home Health. [address] [facility] [address] (home) Date of : 1950 DOCUMENTATION FOR VNA SERVICES (INCLUDING THOSE PATIENTS WITH MEDICARE COVERAGE REQUIRING HOME VNA SERVICES AND/OR HOSPICE SERVICES) PATIENT'S LOCATION: Rajan Faulkner [address] [facility] [address] (home) Cell: Telephone Information: Instructor Industrial Design's Name: Eleanor Prado In discussion with the attending physician, it is certified that this patient is under their care and that they, or a Nurse Practitioner,Clinical Nurse specialist or Physician Junior Accountant who is working directly with them, had a face to face encounter that meets the physician face to face encounter requirements with this patient on 02/19/22 (MD please enter DC date here) The encounter with the patient was in whole, or in part, for the following medical condition, whichis the primary reason for home health care services: atrial fibrillation/aflutter, lung cancer In discussion with the provider, it is certified that, based on their findings, the following services are medically necessary for home health services. To provide the following care/treatments with the clinical findings supporting the need for services as follows: HOME CARE ORDERS: RN ORDERS:Assess chest tube drainage- amount and characteristics. Assess respiratory status. Resumeprevious services. HOME HEALTH CARE AGENCY: [facility]. [address] [place] [address] PHONE: [phone] FAX: [phone] Start of care: 24-48 hours following discharge FOR MEDICARE ONLY: (please delete this section if not Medicare) In discussion with the attending physician, it is certified that the clinical findings support thatthis patient is homebound because absences from home require considerable and taxing effort due to:Medically contraindicated due to infected, draining or complicated wound- chest tube in place. Please note that any additional orders needs or changes will need to be obtained from this patient's PCP: Tami Olivia [address] / [place] [address] All VNA agencies which cover the area of patient's residence have been reviewed, either verbally crow writing, and patient/family have chosen the home health care agency noted Questions: Disciplines Requested: Nursing Discharge References/Attachments None Rosalie Champagne PA-C 02/21/2022 [id number] documented in this encounter Discharge Instructions * Discharge Instructions* Renu Donald PA - 02/19/2022 2:34 PM EST Thoracic Surgery Call if you have a fever of greater than 101 degrees, shaking chills, develop redness or drainage from your incision site(s), or if you have questions. During normal business hours, Saturday- Saturday 8:00 a.m.-5:00 p.m., please call to speak to a nurse in the Thoracic Clinic at [phone]. After hours or on weekends or holidays please call: [phone] and ask to speak to the Thoracic Surgeon on c all. Shower/Bath: You may shower daily starting 2 days after chest tube removal, no bathing or swimming until your follow-up appointment. Incision [...] remain off once there is no drainage. If you have steri-strips over an incision site, these will remain in place for 7-10 days. You may shower with them, and they will fall off naturally in 7-10 days. If they do not fall off by 10 days, you may remove them. * Patient Instructions* Rosalie Champagne PA - 02/18/2022 5:00 PM EST You were hospitalized for evaluation of your irregular heart rhythm called atrial flutter. Treatingthis condition is important for several reasons. It can cause blood clots, which can travel from your heart to your brain and cause a stroke. If you have a fast heartbeat, you may experience chest pain, shortness of breath, lightheadedness, or an overall weakness. An irregular heartbeat can also increase your risk for heart failure. Your home dose of metoprolol, a medication to slow down your heart beat, was temporarily increased.We held your home Xarelto and started you on a blood thinner called heparin to help prevent blood clots from forming in your heart. You may continue your home Xarelto on discharge. You must continue on Xarelto and it is very important you do not miss any doses. Your community support worker will decide if you should stay on this medication. If you have certain risk factors that put you at higher risk of stroke, it is likely you will continue on this medication life-long. Call your doctor if: Chest pain, dyspnea, pain or swelling in legs occurs, or for weight gain of 2 pounds overnight or 5pounds in 5 days. If you have non-emergent questions, prior to your follow-up visit call: Saturday-Saturday between the hours of 8AM-5PM please call the Cardiology Clinic [phone] to speak with a nurse. All other hours please call the Hospital Service Attendant [phone] and ask to speak to the cable weaver on-call. Follow up Appointments: Doctor Where Phone # Date Time PCP Tami Olivia [address] [place] [address] 03/01/22 At 3:30pm Director Of Content Marketing - Dr. [facility] Cardiology [phone] 03/29/22 At 11:00AM Home oxygen therapy: N/A Arrangements for VNA/home care: Yes Please follow up with your Thoracic Surgery team in 2 weeks for a repeat chest X-Ray 2. Please Take Amiodarone 400mg Twice a day for 5 more days. Then take Amiodarone 400mg once per day for 7 days. Then take Amiodarone 200mg once per day until your doctor instructs you to stop this medication. 3. Please do not take your Lisinopril until your doctor tells you to restart this documented in this encounter Medications at Time [...] Take 1 tablet by mouth daily. 11/01/2014 AMIOdarone (Paceron) 200 mg Tablet Take 2 tablets by mouth 2 times daily for 5 days, THEN 2 tablets daily for 7 days. 34 tablet 02/21/2022 03/06/2022 rivaroxaban (Xarelto) 20 mg Tablet Take 20 mg by mouth daily. 06/12/2023 metoprolol succinate XL (Toprol-XL) 25 mg Tablet Sustained Release 24 hr Take 100 mg by mouth daily. 12/12/2022 omeprazole (PriLOSEC) 20 mg Capsule, Delayed Release(E.C.) Take 20 mg by mouth daily. 03/12/2018 05/17/2022 documented as of this encounter Progress Notes * Rosalie Champagne PA - 02/21/2022 7:15 AM EST Inpatient Cardiology Progress Note Patient Name: Rajan Faulkner Service: PAPER MACHINE BACKTENDER / PA Responsible Attending: Ramon Garcia MD Reason for continued hospitalization: Atrial flutter with rapid ventricular response, s/p self-conversion Management of left sided chest tube, removed 02/19/22 Active Problems: Active Hospital Problems Diagnosis ??? Atrial flutter Resolved Hospital Problems No resolved problems to display. Interval History: No acute events overnight. Continues to feel well and would like to go home. No symptoms this morning. No infectious symptoms. Rates remain 120bpm though he is completely asymptomatic. Will plan for discharge to home today. Review of Systems: Review of Systems Constitutional: Positive for fatigue (improved). Negative for chills, diaphoresis and fever. Respiratory: Negative for shortness of breath. Cardiovascular: Negative for chest pain, palpitations and leg swelling. Gastrointestinal: Negative for constipation, diarrhea, nausea and vomiting. Neurological: Negative for dizziness, syncope, speech difficulty and light-headedness. Psychiatric/Behavioral: Negative for agitation and confusion. The patient is not nervous/anxious. All other systems reviewed and are negative. Telemetry: Aflutter rates 120-130bpm Meds: Scheduled Meds: ??? AMIOdarone 400 mg Oral BID ??? metoproloL tartrate 12.5 mg Oral Q6H [place] ??? rivaroxaban 20 mg Oral Daily with dinner ??? acetaminophen 1,000 mg Oral Q6H ??? hydrOXYchloroQUINE 200 mg Oral Daily ??? pantoprazole EC 20 mg Oral Daily ??? tiotropium bromide 2 puff Inhalation Daily ??? tamsulosin 0.4 mg Oral Daily ??? sodium chloride 0.9 % (flush) 5 mL Intravenous BID ??? buPROPion SR 150 mg Oral Daily Continuous Infusions: ??? AMIOdarone 0.501 mg/min (02/21/22 0109) PRN Meds:sodium chloride 0.9 % (flush), lidocaine, nitroGLYcerin, ipratropium-albuteroL Physical Exam: Vital Signs: Last value Range last 12 hrs Temperature Temp: 36.8 ??C (98.2 ??F) Temp: [36.6 ??C (97.9 ??F)-37.1 ??C (98.8 ??F)] Heart Rate Heart Rate: (!) 124 Heart Rate: [124-125] Blood Pressure BP: 109/75 BP: (100-109)/(63-75) Respiratory Rate Resp: 17 Resp: [16-18] SpO2 SpO2: 100 % SpO2: [98 %-100 %] Physical Exam Vitals and nursing note reviewed. Constitutional: General: He is not in acute distress. Appearance: Normal appearance. Eyes: General: Right eye: No discharge. Left eye: No discharge. Extraocular Movements: Extraocular movements intact. Conjunctiva/sclera: Conjunctivae normal. Cardiovascular: Rate and Rhythm: Regular rhythm. Tachycardia present. Pulses: Normal pulses. Heart sounds: No murmur heard. No friction rub. No gallop. Pulmonary: Effort: Pulmonary effort is normal. Breath sounds: No wheezing. Comments: Diminished left sided breath sounds Abdominal: General: Bowel sounds are normal. Palpations: Abdomen is soft. Tenderness: There is no abdominal tenderness. There is no guarding. Musculoskeletal: Right lower leg: No edema. Left lower leg: No edema. Comments: Chest tube dressing site c/d/i ; no erythema or ttp Skin: General: Skin is warm and dry. Neurological: General: No focal deficit present. Mental Status: He is alert and oriented to person, place, and time. Psychiatric: Mood and Affect: Mood normal. Behavior: Behavior normal. Lab Comments: Recent Labs 02/21/22 0356 02/20/22 0429 02/19/22 0401 WBC 12.3* 9.8* 10.9* HGB 10.0* 10.6* 11.7* HCT 30.2* 31.6* 35.4* PLATELET 310 295 279 No results for input(s): INR in the last 168 hours. Recent Labs 02/21/226 02/20/229 02/19/22 0401 NA 135 137 137 K 4.0 3.9 4.3 CL 101 103 101 CO2 24 23 23 BUN 16 20 19 CREATININE 1.04 1.01 1.07 Recent Labs 02/19/22 0401 02/17/22 1350 AST Not Perf 18 ALT 13 12 ALKPHOS 72 67 BILITOT 0.4 0.3 BILIDIR 0.1 -- Recent Labs 02/21/22 0356 02/20/2242802/19/22 0401 02/18/22 0413 02/17/22 1350 CALCIUM 8.9 8.7 9.4 < > 9.6 MAGNESIUM 0.85 0.87 0.82 < > 0.74 PHOS -- -- -- -- 2.8 < > = values in this interval not displayed. No results for input(s): CK, TROPONINT in the last 168 hours. Pertinent Radiographic/Diagnostic Results: Transthoracic Echocardiogram 02/18/2022 Interpretation Summary Patient is in 2:1 atrial flutter. Left ventricle is normal in size with mild hypertrophy and sigmoid septum. There is probably normal global systolic function; cannot accurately quantify due to signficant tachyarrhythmia. Right ventricle is normal in size and function. Normal left atrial size. No hemodynamically significant valve disease. IVC is non-dilated and non-plethoric. ?? Assessment: Rajan Faulkner is a 71 y.o. male with PMH of ASCVD, paroxysmal atrial fibrillation (on Xarelto), history of lung cancer s/p ARACELI resection (03/2021) c/b recurrent pleural effusions (negativecytologyx2) s/p left sided chest tube (02/08/2022), RS3PE, GERD, BPH, COPD, hx of smoking (recently quit 1yr ago), and anxiety who was admitted to the cardiology service for evaluation and management of asympomatic atrial flutter with rapid ventricular response. In the ER POCUS TTE with estimated LVEF of ~35%; on formal TTE 02/18/22 LVEF likely normal global systolic function. Initially planned for HARSH/DCCV on 02/19/22 however he self-converted to NSR briefly though quickly reverted back to Afib/flutter with RVR. Given paroxysmal nature of his arrhythmia amiodarone loading initiated on 02/19/22. Persistently high rates though asymptomatic now s/p IV amiodarone infusion 02/20/-02/21, with rates improving to 120bpm. As he is asymptomatic and hemodynamically stable plan to discharge today 02/21/22. Additionally, his original presentation was secondary to his chest tube not draining properly. Drainage system changed in the ED. Thoracic surgery team following. Chest tube removed 02/19/22, he willfollow up with the thoracic surgery clinic in 2 weeks. Plan: Atrial flutter with RVR History of paroxysmal atrial fibrillation Telemetry monitoring Chest pain protocol Daily weights, monitor I/Os ProBNP ~3,000 S/p metoprolol 5 mg IV x 3 with no significant effect on HR S/p dig load, 250 mcg x1, 125 mcg q6h x 2 doses now discontinued Continue metoprolol 12.5mg Q6hrs TSH 1.36 Defer HARSH/DCCV as paroxysmal D/c heparin gtt 02/19 Continue home Xarelto nightly Cont Amiodarone 400mg BID x 1 week; then 400mg daily x 1 week ; then 200mg daily S/p IV amio infusion 02/20-02/21 (defer bolus 2/2 soft BP) Baseline QtC 435msec in NSR 02/19/22 ?? Hx of ARACELI lung cancer s/p VATS with recurrent pleural effusion Drainage system changed in the ED Thoracic surgery following Interval CXR 02/19 without change Chest tube pulled 02/19/22 Follow up with Thoracic Surg in 2 weeks ?? HTN Hemodynamically stable Continue metoprolol 12.5mg Q6hrs Transition to home Toprol 25mg daily on discharge Holding home lisinopril on discharge ?? Anxiety Continue home Wellbutrin ?? COPD Hx of smoking Quit 1 yr ago, encouraged continued cessation. Nebs prn Continue spiriva ?? BPH: Continue home tamsulosin GERD: Continue PPI RS3PE: Continue plaquenil ; monitor QtC daily Code Status: Full code DVT Prophylaxis: Xarelto Diet: Cardiac Discussed with MD Rosalie Floreshop-Elfego, PA-C 02/21/2022 [id number] Associated attestation - Ramon Garcia MD - 02/21/2022 2:01 PM EST I have seen and examined the patient, have reviewed labs, pertinent images, and EKGs. I agree with the H&P, formulation, and plan as directed by the Rosalie Champagne Patient with improved rate on amiodarone, though still tachycardic. He is without symptoms attributable. Based on this as well as preserved LV function, it would be reasonable to continue amiodarone load at home, and if still with uncontrolled HR, can consider DCCV at that time. Appropriate for discharge today * Nancy Fleming RN - 02/21/2022 6:32 AM EST OUTCOME EVALUATION NOTE: OUTCOME SUMMARY: Pt. Had an uneventful shift. AOx4, no reports of CP or SOB. Denies pain. Remains on RA O2. Stands at bedside to void,. Afib/flutter on tele rates 125-135. See scanned docs. Amiodarone drip running at0.5mg/min. Drsg to left chest Incisions C/D/I. PLAN MOVING FORWARD: . Continue to actively monitor. D/C planning as appropriate INDIVIDUALIZED FALL PREVENTION INTERVENTIONS: Patient-specific fall risk factors per assessment: [current deficits]: tele wires, unfamiliar environment, IV tubing Assistance [level of assistance required for transfers and ambulation]: ind Supervision [direct monitoring required during toileting and ADLs]: ind Surveillance [continuous indirect monitoring]: Tele, vs, labs, I/O Patient-specific fall prevention interventions for sensory deficits provided, if applicable: Room near RN station, Door open, non-skid socks on when OOB. Lighting adjusted for specific tasks/activities. Bed in lowest locked position. CARE PLAN GOAL OUTCOME EVALUATION: Ongoing * Mk Stanford RN - 02/20/2022 7:38 PM EST SHIFT EVALUATION NOTE: SHIFT SUMMARY: Pt AAO x 4 VSS on RA. Pt denies CP or SOB. A-flutter on tele. see scanned documents. XB=[id number], Amiodarone gtt started, Mg+ & K+ repleted. See flowsheet for I/O. Safety precaution applied while in bed/OOB. Call w/in reach. PLAN MOVING FORWARD: D/C home tomorrow Continue to monitor per protocol Discharge planning as appropriate * Malia Nieto MD - 02/20/2022 8:31 AM EST [facility] Department of Thoracic Surgery Inpatient Consultation Note [facility] [address] [place] [address] FAX: Patient Name: Rajan Faulkner Patient : 1950 Patient Patient Location: [address] [place] [address] This consultation request was made by: SOMMER PRYOR, RAMON MEADOWS Consulting thoracic surgery attending: GILMER FOSTER MD HPI: Rajan Faulkner is a 71 y.o. male PMH afib on xarleto (last dose 12 PM), HTN, COPD, lung cancer s/pleft upper lobectomy in March 2021 complicated by recurrent pleural effusion now s/p chest tube placement on 02/08. He presents to the Emergency Department requesting evaluation of his dry seal atrium, as it has not been draining since last night. Per the patient's at bedside, the chest tube has been draining into the atrium, however she has been unable to empty the atrium through the syringe port today, causing backup of fluid into the atrium. The patient has had a persistent air leak since the chest tube was placed, he reports. The ED team changed patient to a regular atrium prior to thoracic surgery eval which showed no evidence of air leak even with provocative maneuvers. No rash,pain, swelling, or drainage from chest tube insertion site. Upon presentation to the ED the patientwas found to be tachycardic to the 140s and in aflutter. The patient denies any complaint of chest pain, shortness of breath, palpitations; no recent fevers, chills, nausea, vomiting, abdominal pain.The patient take metoprolol and Xarelto for his history of paroxysmal atrial fibrillation, denies any missed doses recently. Subjective/ 24 hour: - No acute overnight events - Chest tube removed yesterday Mr. Faulkner reports feeling well this morning. His pain is adequately controlled and feels improved overall with the chest tube removed. He is tolerating a diet without nausea/vomiting. Denies chest pain, shortness of breath, fevers, dizziness. Past Medical History: Patient Active Problem List Diagnosis Date Noted [...] ??? Hypertension ??? Synovitis Past Surgical History: Past Surgical History: Procedure Laterality Date ??? APPENDECTOMY ??? IR THORACENTESIS LEFT 11/08/2021 IR Thoracentesis Left 11/08/[address] [facility] INTERVENTIONL RAD ??? PRO BRONCHOSCOPY, DIAGNOSTIC N/A 03/29/2021 BRONCHOSCOPY, DIAGNOSTIC (WRVU 2.78) performed by Gilmer Foster MD at [facility] MAIN OR ??? PRO BRONCHOSCOPY, DIAGNOSTIC N/A 02/08/2022 BRONCHOSCOPY, DIAGNOSTIC (WRVU 2.78) performed by Gilmer Foster MD at [facility] MAIN OR ? ? PRO INJECTION ANES AGENT &/ STEROID INTERCOSTAL NERVE SINGLE LEVEL Left 03/29/2021 NERVE BLOCK, INTERCOSTAL NERVE (WRVU 1.18) performed by Gilmer Foster MD at [facility] MAIN OR ??? PRO THORACOSCOPY SURG LOBECTOMY Left 03/29/2021 @THORACOSCOPY,SURGICAL,W\LOBECTOMY,TOTAL OR SEGMENTAL (WRVU 24.64) performed by Johana Foster MD at [facility] MAIN OR ??? PRO THORACOSCOPY WITH BIOPSY OF PLEURA Left 02/08/2022 THORACOSCOPY; WITH BIOPSY(IES) OF PLEURA (WRVU 4.58) [facility] ??? PRO THORACOSCOPY WITH MEDIASTINAL AND REGIONAL LYMPHADENECTOMY 03/29/2021 @THORACOSCOPY, SURG; W/MEDIASTINAL& REGIONAL LYMPHADENECTOMY (WRVU 4.12) performed by Gilmer Foster MD at [facility] MAIN OR ??? PRO THORACOSCOPY WITH WEDGE RESECTION AND ANATOMIC LUNG RESECTN Left 03/29/2021 @THORACOSCOPY, SURG; W/DX WEDGE RESC W/ANATOMIC LUNG RESC (WRVU 3) performed by Johana Foster MD at [facility] MAIN OR Medications: Outpatient Medications Marked as Taking for the 02/17/22 encounter (Hospital Encounter) Medication Sig Dispense Refill ??? Spiriva Respimat 2.5 mcg/actuation Mist ??? acetaminophen (Tylenol) 500 mg Tablet Take 2 tablets by mouth every 6 hours. 30 tablet 1 ??? rivaroxaban (Xarelto) 20 mg Tablet Take 20 mg by mouth daily. ??? metoprolol succinate XL (Toprol-XL) 25 mg Tablet Sustained Release 24 hr Take 25 mg by mouth daily. ??? lisinopriL (Zestril) 10 mg Tablet Take 10 mg by mouth daily. ??? bupropion HCl [...] Tablet Take 1 tablet by mouth daily. Allergies: Allergies Allergen Reactions ??? Cat Dander Runny eyes and nose ??? Dog Dander Runny eyes and nose Family History: Family History Problem Relation Age of Onset ??? Myocardial Infarction Father Social History: Social History Socioeconomic History ??? Marital status: Spouse name: Not on file ??? Number of children: Not on file ??? Years of education: Not on file ??? Highest education level: Not on file Occupational History ??? Not on file Tobacco Use ??? Smoking status: Former Years: 50.00 Types: Cigarettes ??? Smokeless tobacco: Never ??? Tobacco comments: 1 ppd for the past year Vaping Use ??? Vaping Use: Never used Substance and Sexual Activity ??? Alcohol use: Not Currently ??? Drug use: Yes Types: Marijuana Comment: OCC ??? Sexual activity: Not Currently Other Topics Concern ??? Not on file Social History Narrative ??? Not on file Social Determinants of Health Financial Resource Strain: Not on file Food Insecurity: Not on file Transportation Needs: Not on file Physical Activity: Not on file Housing Stability: Not on file Review of Systems: Patient denies RI/stroke/TIA/DVT/PE/cancer, problems with kidneys/liver/bleeding/anesthesia, fevers, chills, sweats, weight loss, fatigue, headaches, dizziness, lightheadedness, changes in vision or hearing, chest pain, palpitations, orthopnea, cough, productive cough, hemoptysis, SOB, dyspnea, PRIEST, pleurisy, wheezing, sore throat, dysphagia, odynophagia, nausea, vomiting, hematemesis, abdominal pain, constipation, diarrhea, BRBPR, melena, dysuria, burning, hematuria, paresthesias, cyanosis, edema. Vitals: Temp: [36.7 ??C (98.1 ??F)-37.1 ??C (98.8 ??F)] Heart Rate: [112-139] Resp: [16-18] BP: (95-114)/(51-71) SpO2: [92 %-99 %] Heart Rate from SpO2: [70 bpm-154 bpm] Wt & BMI By Encounter Date Flowsheet Row ED to Hosp-Admission (Current) from 02/17/2022 in Intermediate Cardiac Care Unit [facility] Admission (Discharged) from 02/08/2022 in Short Stay Unit at [facility] Weight 72.7 kg (160 lb 4.4 oz) 1 02/20/2022 0347 73.3 kg (161 lb 9.6 oz) 1 02/10/2022 0531 BMI 24.56 1 02/18/2022 0500 25.39 1 02/08/2022 1110 Physical Exam: Gen: NAD, A0x3 CVS: Irregularly irregular. Pulm: Non-labored breathing on RA. L chest tube dressing in place with minimal drainage. GI: nontender; nondistended MSK: WWP, no edema Neuro: moving all 4 extremities spontaneously, nonfocal Wounds/Incisions: Left VATS incisions CDI with evidence of good wound healing. I/O: I/O last 3 completed shifts: In: 1446.6 [P.O.:890; I.V.:556.6] Out: 1426 [Urine:1375; Other:51] Labs: Recent Results (from the past 72 hour(s)) EKG 12 Lead Result Value Ref Range Ventricular rate 142 BPM Atrial Rate 284 BPM QRS Duration 96 ms Q-T Interval 324 ms QTC Calculated (Bezet) 498 ms Calculated P [place] -101 degrees Calculated R [place] 75 degrees Calculated T [place] -88 degrees INTERPRETATION Atrial flutter with 2:1 A-V conduction Minimal voltage criteria for LVH, may be normal variant ( Pryor product ) Abnormal ECG When compared with ECG of 13-FEB-2021 15:15, Atrial flutter has replaced Sinus rhythm Vent. rate has increased BY [address] now depressed in Inferior leads T wave inversion now evident in Inferior leads Nonspecific T wave abnormality now evident in Lateral leads Confirmed by MD Glenda, Rodger ([id number]) on 02/18/2022 4:23:20 PM Comprehensive metabolic panel (non-fasting) Result Value Ref Range Glucose Lvl 95 65 - 199 mg/dL BUN 16 10 - 20 mg/dL Creatinine 1.04 0.80 - 1.50 mg/dL Sodium 138 135 - 145 mmol/L Potassium 4.2 3.5 - 5.0 mmol/L Chloride 104 98 - 107 mmol/L CO2 23 22 - 31 mmol/L Anion Gap 11 5 - 15 mmol/L Calcium 9.6 8.5 - 10.5 mg/dL Total Protein 6.8 6.1 - 8.0 g/dL Albumin 3.5 3.2 - 5.2 g/dL AST 18 0 - 39 unit/L ALT 12 0 - 55 unit/L Alk Phos 67 40 - 130 unit/L Total Bilirubin 0.3 0.2 - 1.3 mg/dL Estimated GFR 76 >=60 mL/min/1.73 m?? Phosphorus Result Value Ref Range Phosphorus 2.8 2.5 - 4.5 mg/dL Magnesium Result Value Ref Range Magnesium 0.74 0.69 - 1.07 mmol/L Hemogram Result Value Ref Range WBC 10.2 (H) 4.0 - 9.5 x10(3)/mcL RBC 3.99 (L) 4.58 - 5.54 x10(6)/mcL Hemoglobin 11.0 (L) 13.7 - 16.5 g/dL Hematocrit 33.6 (L) 40.5 - 48.5 % MCV 84.2 82.9 - 93.1 fL MCH 27.6 27.5 - 32.1 pg MCHC 32.7 32.0 - 35.7 g/dL Platelets 314 145 - 357 x10(3)/mcL RDWSD 43.4 36.0 - 45.0 fL RDWCV 14.0 (H) 11.4 - 13.8 % MPV 9.2 7.6 - 12.9 fL nRBC % Auto 0.0 % nRBC Abs Auto 0.000 0.000 - 0.000 x10(3)/mcL Differential, Automated Result Value Ref Range Neutrophils % 74.6 % Neutr Abs (ANC) 7.60 (H) 1.70 - 6.10 x10(3)/mcL Lymphocytes % 13.6 % Lymphocytes Abs 1.4 0.9 - 3.2 x10(3)/mcL Monocytes % 10.8 % Monocyte Abs 1.1 (H) 0.3 - 0.9 x10(3)/mcL Eosinophils % 0.3 % Eosinophils Abs 0.0 0.0 - 0.4 x10(3)/mcL Basophils % 0.3 % Basophils Abs 0.0 0.0 - 0.1 x10(3)/mcL Immature Gran % 0.40 % Kecia Gran Abs 0.04 0.00 - 0.04 x10(3)/mcL pro-Brain Natriuretic Peptide Result Value Ref Range ProBNP 3,033 (H) <=124 pg/mL TSH Result Value Ref Range TSH 1.36 0.27 - 4.20 mcIU/mL BMP w/fasting Glucose Result Value Ref Range Glucose Fasting 83 65 - 99 mg/dL BUN 15 10 - 20 mg/dL Creatinine 0.96 0.80 - 1.50 mg/dL Sodium 135 135 - 145 mmol/L Potassium 4.2 3.5 - 5.0 mmol/L Chloride 103 98 - 107 mmol/L CO2 20 (L) 22 - 31 mmol/L Anion Gap 12 5 - 15 mmol/L Calcium 9.3 8.5 - 10.5 mg/dL Estimated GFR 84 >=60 mL/min/1.73 m?? Magnesium Result Value Ref Range Magnesium 0.77 0.69 - 1.07 mmol/L Heparin (unfractionated) Level Result Value Ref Range Heparin UFH Level 0.12 IU/mL Hemogram Result Value Ref Range WBC 9.5 4.0 - 9.5 x10(3)/mcL RBC 4.18 (L) 4.58 - 5.54 x10(6)/mcL Hemoglobin 11.7 (L) 13.7 - 16.5 g/dL Hematocrit 35.8 (L) 40.5 - 48.5 % MCV 85.6 82.9 - 93.1 fL MCH 28.0 27.5 - 32.1 pg MCHC 32.7 32.0 - 35.7 g/dL Platelets 280 145 - 357 x10(3)/mcL RDWSD 43.3 36.0 - 45.0 fL RDWCV 14.0 (H) 11.4 - 13.8 % MPV 9.4 7.6 - 12.9 fL nRBC % Auto 0.0 % nRBC Abs Auto 0.000 0.000 - 0.000 x10(3)/mcL Differential, Automated Result Value Ref Range Neutrophils % 69.7 % Neutr Abs (ANC) 6.60 (H) 1.70 - 6.10 x10(3)/mcL Lymphocytes % 18.0 % Lymphocytes Abs 1.7 0.9 - 3.2 x10(3)/mcL Monocytes % 11.2 % Monocyte Abs 1.1 (H) 0.3 - 0.9 x10(3)/mcL Eosinophils % 0.3 % Eosinophils Abs 0.0 0.0 - 0.4 x10(3)/mcL Basophils % 0.5 % Basophils Abs 0.0 0.0 - 0.1 x10(3)/mcL Immature Gran % 0.30 % Kecia Gran Abs 0.03 0.00 - 0.04 x10(3)/mcL EKG 12 Lead Result Value Ref Range Ventricular rate 145 BPM Atrial Rate 290 BPM QRS Duration 92 ms Q-T Interval 354 ms QTC Calculated (Bezet) 549 ms Calculated P [place] 89 degrees Calculated R [place] 73 degrees Calculated T [place] -131 degrees INTERPRETATION Atrial flutter with 2:1 A-V conduction Minimal voltage criteria for LVH, may be normal variant Abnormal ECG When compared with ECG of 17-FEB-2022 13:18, (unconfirmed) No significant change was found Confirmed by MD Garcia Daniel ([id number]) on 02/18/2022 1:36:02 PM Echocardiogram Transthoracic Result Value Ref Range EF 52 Heparin (unfractionated) Level Result Value Ref Range Heparin UFH Level 0.16 IU/mL Heparin (unfractionated) Level Result Value Ref Range Heparin UFH Level 0.06 IU/mL BMP w/fasting Glucose Result Value Ref Range Glucose Fasting 96 65 - 99 mg/dL BUN 19 10 - 20 mg/dL Creatinine 1.07 0.80 - 1.50 mg/dL Sodium 137 135 - 145 mmol/L Potassium 4.3 3.5 - 5.0 mmol/L Chloride 101 98 - 107 mmol/L CO2 23 22 - 31 mmol/L Anion Gap 13 5 - 15 mmol/L Calcium 9.4 8.5 - 10.5 mg/dL Estimated GFR 74 >=60 mL/min/1.73 m?? Magnesium Result Value Ref Range Magnesium 0.82 0.69 - 1.07 mmol/L Heparin (unfractionated) Level Result Value Ref Range Heparin UFH Level 0.19 IU/mL Hemogram Result Value Ref Range WBC 10.9 (H) 4.0 - 9.5 x10(3)/mcL RBC 4.19 (L) 4.58 - 5.54 x10(6)/mcL Hemoglobin 11.7 (L) 13.7 - 16.5 g/dL Hematocrit 35.4 (L) 40.5 - 48.5 % MCV 84.5 82.9 - 93.1 fL MCH 27.9 27.5 - 32.1 pg MCHC 33.1 32.0 - 35.7 g/dL Platelets 279 145 - 357 x10(3)/mcL RDWSD 43.1 36.0 - 45.0 fL RDWCV 14.0 (H) 11.4 - 13.8 % MPV 10.1 7.6 - 12.9 fL nRBC % Auto 0.0 % nRBC Abs Auto 0.000 0.000 - 0.000 x10(3)/mcL Differential, Automated Result Value Ref Range Neutrophils % 70.0 % Neutr Abs (ANC) 7.63 (H) 1.70 - 6.10 x10(3)/mcL Lymphocytes % 17.6 % Lymphocytes Abs 1.9 0.9 - 3.2 x10(3)/mcL Monocytes % 11.2 % Monocyte Abs 1.2 (H) 0.3 - 0.9 x10(3)/mcL Eosinophils % 0.4 % Eosinophils Abs 0.0 0.0 - 0.4 x10(3)/mcL Basophils % 0.4 % Basophils Abs 0.0 0.0 - 0.1 x10(3)/mcL Immature Gran % 0.40 % Kecia Gran Abs 0.04 0.00 - 0.04 x10(3)/mcL Hepatic Function Panel Result Value Ref Range Total Protein 6.7 6.1 - 8.0 g/dL Albumin 3.3 3.2 - 5.2 g/dL AST Not Perf 0 - 39 ALT 13 0 - 55 unit/L Alk Phos 72 40 - 130 unit/L Total Bilirubin 0.4 0.2 - 1.3 mg/dL Bili, Direct 0.1 0.0 - 0.3 mg/dL EKG 12 Lead Result Value Ref Range Ventricular rate 144 BPM Atrial Rate 300 BPM QRS Duration 90 ms Q-T Interval 332 ms QTC Calculated (Bezet) 514 ms Calculated R [place] 71 degrees Calculated T [place] -130 degrees INTERPRETATION Atrial flutter with variable A-V block Minimal voltage criteria for LVH, may be normal variant ( Yash product ) Abnormal ECG When compared with ECG of 18-FEB-2022 06:25, ST no longer depressed in Inferior leads Nonspecific T wave abnormality, improved in Anterolateral leads EKG 12 Lead Result Value Ref Range Ventricular rate 78 BPM QRS Duration 98 ms Q-T Interval 382 ms QTC Calculated (Bezet) 435 ms Calculated R [place] 90 degrees Calculated T [place] 72 degrees INTERPRETATION Atrial fibrillation Rightward axis Possible Anterior infarct , age undetermined Abnormal ECG When compared with ECG of 19-FEB-2022 06:14, (unconfirmed) Atrial fibrillation has replaced Atrial flutter Vent. rate has decreased BY 66 BPM Nonspecific T wave abnormality no longer evident in Inferior leads T wave inversion now evident in Anterior leads EKG 12 Lead Result Value Ref Range Ventricular rate 121 BPM QRS Duration 108 ms Q-T Interval 326 ms QTC Calculated (Bezet) 462 ms Calculated R [place] 78 degrees Calculated T [place] -112 degrees INTERPRETATION Atrial fibrillation with rapid ventricular response Minimal voltage criteria for LVH, may be normal variant ( Yash product ) Nonspecific T wave abnormality Abnormal ECG When compared with ECG of 19-FEB-2022 09:38, (unconfirmed) Atrial fibrillation has replaced Sinus rhythm Vent. rate has increased BY 43 BPM Nonspecific T wave abnormality now evident in Inferior leads Nonspecific T wave abnormality has replaced inverted T waves in Anterior leads Confirmed by MD Aric, Emre [id number]) on 02/19/2022 2:57:08 PM Heparin (unfractionated) Level Result Value Ref Range Heparin UFH Level 0.22 IU/mL BMP w/fasting Glucose Result Value Ref Range Glucose Fasting 108 (H) 65 - 99 mg/dL BUN 20 10 - 20 mg/dL Creatinine 1.01 0.80 - 1.50 mg/dL Sodium 137 135 - 145 mmol/L Potassium 3.9 3.5 - 5.0 mmol/L Chloride 103 98 - 107 mmol/L CO2 23 22 - 31 mmol/L Anion Gap 11 5 - 15 mmol/L Calcium 8.7 8.5 - 10.5 mg/dL Estimated GFR 79 >=60 mL/min/1.73 m?? Magnesium Result Value Ref Range Magnesium 0.87 0.69 - 1.07 mmol/L Hemogram Result Value Ref Range WBC 9.8 (H) 4.0 - 9.5 x10(3)/mcL RBC 3.80 (L) 4.58 - 5.54 x10(6)/mcL Hemoglobin 10.6 (L) 13.7 - 16.5 g/dL Hematocrit 31.6 (L) 40.5 - 48.5 % MCV 83.2 82.9 - 93.1 fL MCH 27.9 27.5 - 32.1 pg MCHC 33.5 32.0 - 35.7 g/dL Platelets 295 145 - 357 x10(3)/mcL RDWSD 42.9 36.0 - 45.0 fL RDWCV 14.0 (H) 11.4 - 13.8 % MPV 9.2 7.6 - 12.9 fL nRBC % Auto 0.0 % nRBC Abs Auto 0.000 0.000 - 0.000 x10(3)/mcL Differential, Automated Result Value Ref Range Neutrophils % 71.7 % Neutr Abs (ANC) 7.04 (H) 1.70 - 6.10 x10(3)/mcL Lymphocytes % 15.7 % Lymphocytes Abs 1.5 0.9 - 3.2 x10(3)/mcL Monocytes % 11.9 % Monocyte Abs 1.2 (H) 0.3 - 0.9 x10(3)/mcL Eosinophils % 0.2 % Eosinophils Abs 0.0 0.0 - 0.4 x10(3)/mcL Basophils % 0.3 % Basophils Abs 0.0 0.0 - 0.1 x10(3)/mcL Immature Gran % 0.20 % Kecia Gran Abs 0.02 0.00 - 0.04 x10(3)/mcL EKG 12 Lead Result Value Ref Range Ventricular rate 140 BPM Atrial Rate 140 BPM P-R Interval 176 ms QRS Duration 98 ms Q-T Interval 328 ms QTC Calculated (Bezet) 500 ms Calculated R [place] 93 degrees Calculated T [place] -81 degrees INTERPRETATION Sinus tachycardia Rightward axis Minimal voltage criteria for LVH, may be normal variant ( Yash product ) Cannot rule out Inferior infarct , age undetermined Abnormal ECG When compared with ECG of 19-FEB-2022 10:55, Sinus rhythm has replaced Atrial fibrillation ST elevation now present in Inferior leads Diagnostics: Results for orders placed or performed during the hospital encounter of 02/17/22 XR Chest PA & Lateral (Generic) (Exam End: 02/17/2022 2:05 PM) Impression 1. Left chest tube remains in position. 2. There is a small left pneumothorax which has diminished in size. 3. Moderate size left pleural effusion/hemothorax is not significantly changed. Thank you for letting us participate in the care of this patient. If you are a health care provider and have any questions regarding this report, please contact the number below. For patients who have questions please contact the health rn acute care that requested your imaging first. Chest PA & Lateral (Generic) (Exam End: 02/18/2022 6:15 AM) Impression Stable examination with stable position of the left chest tube and no significant interval change of the left hydropneumothorax. I have personally reviewed the image(s) and the resident's interpretation and agree with the findings, Sheeba Woods MD at 02/18/2022 6:41 AM Thank you for letting us participate in the care of this patient. If you are a health care provider and have any questions regarding this report, please contact the number below. For patients who have questions please contact the health rn acute care that requested your imaging first. Chest PA & Lateral (Generic) (Exam End: 02/19/2022 4:53 AM) Impression Stable examination with unchanged size of the left hydropneumothorax. Thank you for letting us participate in the care of this patient. If you are a health care provider and have any questions regarding this report, please contact the number below. For patients who have questions please contact the health rn acute care that requested your imaging first. Micro: None Assessment: Rajan Faulkner is a 71 y.o. male with a PMH afib on xarleto (last dose 02/16 PM), HTN, COPD, lung cancer s/p left upper lobectomy in March 2021 complicated by recurrent pleural effusion now s/p chesttube placement on 02/08. He presented to the Emergency Department with a clogged mini atrium and wasfound to be in afib with RVR. He is now s/p removal of his left chest tube on 02/19/22. Recommendations: 1. Plan for follow up with Dr. Foster in two weeks with a repeat CXR. 2. Keep occlusive chest tube dressing in place for 48 hours, at which point it may be removed and left open to air. Discharge instructions updated. 3. Rest of care per primary team. Thoracic surgery will remain available for questions and concerns. All plans formulated in discussion with and directed by attending thoracic surgeon Dr. Foster. Malia Nieto MD 02/20/2022 Thoracic Surgery Service Pager [phone] * Rosalie Champagne PA - 02/20/2022 7:05 AM EST Images from the original note were not included. Inpatient Cardiology Progress Note Patient Name: Rajan Faulkner Service: PAPER MACHINE BACKTENDER / PA Responsible Attending: Ramon Garcia MD Reason for continued hospitalization: Atrial flutter with rapid ventricular response, awaiting HARSH/DCCV Management of left sided chest tube Active Problems: Active Hospital Problems Diagnosis ??? Atrial flutter Resolved Hospital Problems No resolved problems to display. Interval History: No acute overnight events. Remains in Afib RVR/flutter with rates averaging 140-150bpm at rest. No symptoms. He would like to go home today. No difficulty breathing, SOB, cough, hypoxia. Review of Systems: Review of Systems Constitutional: Positive for fatigue (improved). Negative for chills, diaphoresis and fever. Respiratory: Negative for shortness of breath. Cardiovascular: Negative for chest pain, palpitations and leg swelling. Gastrointestinal: Negative for constipation, diarrhea, nausea and vomiting. Neurological: Negative for dizziness, syncope, speech difficulty and light-headedness. Psychiatric/Behavioral: Negative for agitation and confusion. The patient is not nervous/anxious. All other systems reviewed and are negative. Telemetry: Afib RVR/Atrial flutter with RVR rates 130-150bpm consistently Meds: Scheduled Meds: ??? AMIOdarone 400 mg Oral BID ??? metoproloL tartrate 12.5 mg Oral Q6H EAGLE ??? rivaroxaban 20 mg Oral Daily with dinner ??? acetaminophen 1,000 mg Oral Q6H ??? hydrOXYchloroQUINE 200 mg Oral Daily ??? pantoprazole EC 20 mg Oral Daily ??? tiotropium bromide 2 puff Inhalation Daily ??? tamsulosin 0.4 mg Oral Daily ??? sodium chloride 0.9 % (flush) 5 mL Intravenous BID ??? buPROPion SR 150 mg Oral Daily Continuous Infusions: ??? AMIOdarone PRN Meds:sodium chloride 0.9 % (flush), lidocaine, nitroGLYcerin, ipratropium-albuteroL Physical Exam: Vital Signs: Last value Range last 12 hrs Temperature Temp: 37 ??C (98.6 ??F) Temp: [36.8 ??C (98.2 ??F)-37 ??C (98.6 ??F)] Heart Rate Heart Rate: (!) 139 Heart Rate: [112-139] Blood Pressure BP: 99/59 BP: (95-114)/(59-71) Respiratory Rate Resp: 16 Resp: [16] SpO2 SpO2: 99 % SpO2: [92 %-99 %] Physical Exam Vitals and nursing note reviewed. Constitutional: General: He is not in acute distress. Appearance: Normal appearance. Eyes: General: Right eye: No discharge. Left eye: No discharge. Extraocular Movements: Extraocular movements intact. Conjunctiva/sclera: Conjunctivae normal. Cardiovascular: Rate and Rhythm: Regular rhythm. Tachycardia present. Pulses: Normal pulses. Heart sounds: No murmur heard. No friction rub. No gallop. Pulmonary: Effort: Pulmonary effort is normal. Breath sounds: No wheezing. Comments: Diminished left sided breath sounds Abdominal: General: Bowel sounds are normal. Palpations: Abdomen is soft. Tenderness: There is no abdominal tenderness. There is no guarding. Musculoskeletal: Right lower leg: No edema. Left lower leg: No edema. Skin: General: Skin is warm and dry. Neurological: General: No focal deficit present. Mental Status: He is alert and oriented to person, place, and time. Psychiatric: Mood and Affect: Mood normal. Behavior: Behavior normal. Lab Comments: Recent Labs 02/20/2242802/19/2240002/18/22412 WBC 9.8* 10.9* 9.5 HGB 10.6* 11.7* 11.7* HCT 31.6* 35.4* 35.8* PLATELET 295 279 280 No results for input(s): INR in the last 168 hours. Recent Labs 02/20/2242802/19/22400 02/18/22 0413 NA 137 137 135 K 3.9 4.3 4.2 CL 103 101 103 CO2 23 23 20* BUN 20 19 15 CREATININE 1.01 1.07 0.96 Recent Labs 02/19/22 0401 02/17/22 1350 AST Not Perf 18 ALT 13 12 ALKPHOS 72 67 BILITOT 0.4 0.3 BILIDIR 0.1 -- Recent Labs 02/20/229 02/19/221 02/18/22 0413 02/17/22 1350 CALCIUM 8.7 9.4 9.3 9.6 MAGNESIUM 0.87 0.82 0.77 0.74 PHOS -- -- -- 2.8 No results for input(s): CK, TROPONINT in the last 168 hours. Pertinent Radiographic/Diagnostic Results: Transthoracic Echocardiogram 02/18/2022 Interpretation Summary Patient is in 2:1 atrial flutter. Left ventricle is normal in size with mild hypertrophy and sigmoid septum. There is probably normal global systolic function; cannot accurately quantify due to signficant tachyarrhythmia. Right ventricle is normal in size and function. Normal left atrial size. No hemodynamically significant valve disease. IVC is non-dilated and non-plethoric. ?? Assessment: Rajan Faulkner is a 71 y.o. male with PMH of ASCVD, paroxysmal atrial fibrillation (on Xarelto), history of lung cancer s/p ARACELI resection (03/2021) c/b recurrent pleural effusions (negativecytologyx2) s/p left sided chest tube (02/08/2022), RS3PE, GERD, BPH, COPD, hx of smoking (recently quit 1yr ago), and anxiety who was admitted to the cardiology service for evaluation and management of asympomatic atrial flutter with rapid ventricular response. In the ER POCUS TTE with estimated LVEF of ~35%; on formal TTE 02/18/22 LVEF likely normal global systolic function. Initially planned for HARSH/DCCV on 02/19/22 however he self-converted to NSR briefly though quickly reverted back to Afib/flutter with RVR. Given paroxysmal nature of his arrhythmia amiodarone loading initiated on 02/19/22. Persistently high rates overnight, will plan for IV amiodarone infusion today, and possible discharge to home 02/21/22. Additionally, his original presentation was secondary to his chest tube not draining properly. Drainage system changed in the ED. Thoracic surgery team following. Chest tube removed 02/19/22, he willfollow up with the thoracic surgery clinic in 2 weeks. Plan: Atrial flutter with RVR History of paroxysmal atrial fibrillation Telemetry monitoring Chest pain protocol Daily weights, monitor I/Os ProBNP ~3,000 S/p metoprolol 5 mg IV x 3 with no significant effect on HR S/p dig load, 250 mcg x1, 125 mcg q6h x 2 doses now discontinued Continue metoprolol 12.5mg Q6hrs TSH 1.36 Defer HARSH/DCCV as paroxysmal D/c heparin gtt 02/19 Continue home Xarelto nightly Cont Amiodarone 400mg BID ; start IV amio infusion 02/20 (defer bolus 2/2 soft BP) Baseline QtC 435msec in NSR 02/19/22 ?? Hx of ARACELI lung cancer s/p VATS with recurrent pleural effusion Drainage system changed in the ED Thoracic surgery following Interval CXR 02/19 without change Chest tube pulled 02/19/22 Follow up with Thoracic Surg in 2 weeks ?? HTN Hemodynamically stable Continue metoprolol 12.5mg Q6hrs Holding home lisinopril ?? Anxiety Continue home Wellbutrin ?? COPD Hx of smoking Quit 1 yr ago, encouraged continued cessation. Nebs prn Continue spiriva ?? BPH: Continue home tamsulosin GERD: Continue PPI RS3PE: Continue plaquenil ; monitor QtC daily Code Status: Full code DVT Prophylaxis: Xarelto Diet: Cardiac Discussed with MD Rosalie Flores, PA-C 02/20/2022 [id number] Associated attestation - Ramon Garcia MD - 02/20/2022 1:54 PM EST I have seen and examined the patient, have reviewed labs, pertinent images, and EKGs. I agree with the H&P, formulation, and plan as directed by the Rosalie Champagne Patient continues with non-rate controlled atrial flutter. He is rather asymptomatic. CXR continuesto demonstrate hydropneumothorax. Will IV load with amiodarone today. Because of his asymptomatic status, it would be reasonable to complete the rest of the amiodarone load at home. Once loaded, DCCV can be attempted Anticipate discharge tomorrow * Nancy Fleming RN - 02/20/2022 5:50 AM EST OUTCOME EVALUATION NOTE: OUTCOME SUMMARY: Pt. Had an uneventful shift. AOx4, no reports of CP or SOB. Denies pain. Remains on RA O2. AFIB Rates up to 150 on tele. See scanned docs. PLAN MOVING FORWARD: . Continue to actively monitor. D/C planning as appropriate INDIVIDUALIZED FALL PREVENTION INTERVENTIONS: Patient-specific fall risk factors per assessment: [current deficits]: tele wires, unfamiliar environment Assistance [level of assistance required for transfers and ambulation]: SBA Supervision [direct monitoring required during toileting and ADLs]: SBA Surveillance [continuous indirect monitoring]: Tele, vs, I/O Patient-specific fall prevention interventions for sensory deficits provided, if applicable: Room near RN station, Door open, non-skid socks on when OOB. Lighting adjusted for specific tasks/activities. Bed in lowest locked position. CARE PLAN GOAL OUTCOME EVALUATION: Ongoing * Nancy Fleming RN - 02/19/2022 7:23 AM EST OUTCOME EVALUATION NOTE: OUTCOME SUMMARY: Pt. Had an uneventful shift. AOx4,Pt c/o chest pain see flow sheet. ECG done. Remains on RA O2. Ambulated to bathroom. Aflutter 2:1 rates 136-155 on tele. See scanned docs. heparin running, see mar/results for UFH, titration of heparin drip.NPO for possible cardioversion procedure. Chest tube to left chest to water seal, no leak noted- see flowsheet for output PLAN MOVING FORWARD: . Continue to actively monitor. D/C planning as appropriate INDIVIDUALIZED FALL PREVENTION INTERVENTIONS: Patient-specific fall risk factors per assessment: [current deficits]: Pulse ox, weakness tele wires, unfamiliar environment Assistance [level of assistance required for transfers and ambulation]: sba Supervision [direct monitoring required during toileting and ADLs]: sba Surveillance [continuous indirect monitoring]: Tele,pulse ox, vs, labs, Chest tube Patient-specific fall prevention interventions for sensory deficits provided, if applicable: Room near RN station, Door open, non-skid socks on when OOB. Lighting adjusted for specific tasks/activities. Bed in lowest locked position. CARE PLAN GOAL OUTCOME EVALUATION: Ongoing * Rosalie Champagne PA - 02/19/2022 7:09 AM EST Images from the original note were not included. Inpatient Cardiology Progress Note Patient Name: Rajan Faulkner Service: PAPER MACHINE BACKTENDER / PA Responsible Attending: Ramon Garcia MD Reason for continued hospitalization: Atrial flutter with rapid ventricular response, awaiting HARSH/DCCV Management of left sided chest tube Active Problems: Active Hospital Problems Diagnosis ??? Atrial flutter Resolved Hospital Problems No resolved problems to display. Interval History: No acute events overnight. Remains in Aflutter rates 150bpm. Remains hemodynamically stable. CXR this AM without change in hydropneumothorax. Remains NPO for HARSH/DCCV today. Addendum: self converted into NSR +PACs at approximately 9:30AM. Plan to uptitrate beta blockade, touch base with Thoracic surgery and likely discharge to home this afternoon. Review of Systems: Review of Systems Constitutional: Positive for fatigue. Negative for chills, diaphoresis and fever. Respiratory: Negative for shortness of breath. Cardiovascular: Negative for chest pain, palpitations and leg swelling. Gastrointestinal: Negative for constipation, diarrhea, nausea and vomiting. Neurological: Negative for dizziness, syncope, speech difficulty and light-headedness. Psychiatric/Behavioral: Negative for agitation and confusion. The patient is nervous/anxious. All other systems reviewed and are negative. Telemetry: Atrial flutter with RVR rates 150bpm consistently Meds: Scheduled Meds: ??? metoproloL tartrate 12.5 mg Oral Q6H EAGLE ??? acetaminophen 1,000 mg Oral Q6H ??? hydrOXYchloroQUINE 200 mg Oral Daily ??? pantoprazole EC 20 mg Oral Daily ??? tiotropium bromide 2 puff Inhalation Daily ??? tamsulosin 0.4 mg Oral Daily ??? sodium chloride 0.9 % (flush) 5 mL Intravenous BID ??? buPROPion SR 150 mg Oral Daily Continuous Infusions: ??? heparin (porcine) infusion 1,850 Units/hr (02/19/22 0534) PRN Meds:metoprolol, sodium chloride 0.9 % (flush), lidocaine, nitroGLYcerin, ipratropium-albuteroL, heparin (porcine) infusion AND heparin (porcine) Physical Exam: Vital Signs: Last value Range last 12 hrs Temperature Temp: 36.7 ??C (98.1 ??F) Temp: [36.7 ??C (98.1 ??F)-36.9 ??C (98.4 ??F)] Heart Rate Heart Rate: (!) 153 Heart Rate: [150-153] Blood Pressure BP: (!) 123/100 BP: (90-123)/(71-100) Respiratory Rate Resp: 16 Resp: [16-17] SpO2 SpO2: 99 % SpO2: [97 %-99 %] Physical Exam Vitals and nursing note reviewed. Constitutional: General: He is not in acute distress. Appearance: Normal appearance. Eyes: General: Right eye: No discharge. Left eye: No discharge. Extraocular Movements: Extraocular movements intact. Conjunctiva/sclera: Conjunctivae normal. Cardiovascular: Rate and Rhythm: Regular rhythm. Tachycardia present. Pulses: Normal pulses. Heart sounds: No murmur heard. No friction rub. No gallop. Pulmonary: Effort: Pulmonary effort is normal. Breath sounds: No wheezing. Comments: Diminished left sided breath sounds Abdominal: General: Bowel sounds are normal. Palpations: Abdomen is soft. Tenderness: There is no abdominal tenderness. There is no guarding. Musculoskeletal: Right lower leg: No edema. Left lower leg: No edema. Skin: General: Skin is warm and dry. Neurological: General: No focal deficit present. Mental Status: He is alert and oriented to person, place, and time. Psychiatric: Mood and Affect: Mood normal. Behavior: Behavior normal. Lab Comments: Recent Labs 02/19/22 0401 02/18/22 0413 02/17/22 1350 WBC 10.9* 9.5 10.2* HGB 11.7* 11.7* 11.0* HCT 35.4* 35.8* 33.6* PLATELET 279 280 314 No results for input(s): INR in the last 168 hours. Recent Labs 02/19/22 0401 02/18/22 0413 02/17/22 1350 NA 137 135 138 K 4.3 4.2 4.2 CL 101 103 104 CO2 23 20* 23 BUN 19 15 16 CREATININE 1.07 0.96 1.04 Recent Labs 02/17/22 1350 AST 18 ALT 12 ALKPHOS 67 BILITOT 0.3 Recent Labs 02/19/22 0401 02/18/22 0413 02/17/22 1350 CALCIUM 9.4 9.3 9.6 MAGNESIUM 0.82 0.77 0.74 PHOS -- -- 2.8 No results for input(s): CK, TROPONINT in the last 168 hours. Pertinent Radiographic/Diagnostic Results: Transthoracic Echocardiogram 02/18/2022 Awaiting study Assessment: Rajan Faulkner is a 71 y.o. male with PMH of ASCVD, paroxysmal atrial fibrillation (on Xarelto), history of lung cancer s/p ARACELI resection (03/2021) c/b recurrent pleural effusions (negativecytologyx2) s/p left sided chest tube (02/08/2022), RS3PE, GERD, BPH, COPD, hx of smoking (recently quit 1yr ago), and anxiety who was admitted to the cardiology service for evaluation and management of asympomatic atrial flutter with rapid ventricular response. He underwent a rapid bedside echocardiogram with estimated LVEF of ~35%; will perform formal echocardiogram today. ProBNP ~3,000. Secondary to lapses in his therapeutic anticoagulation, he must undergo CARROLL assessment prior to potential ca rdioversion. Denies any symptoms of this rhythm since presentation. Plan for HARSH/cardioversion; attempting to optimize rate control in the interim. Additionally, his original presentation was secondary to his chest tube not draining properly. Drainage system changed in the ED. Thoracic surgery team following for management of this. CXR this morning with stable hydropneumothorax. Patient converted to NSR this morning and shortly after reverted back to afib RVR. Plan to start Amiodarone for rhythm control. Plan: Atrial flutter with RVR History of paroxysmal atrial fibrillation Telemetry monitoring Chest pain protocol Daily weights, monitor I/Os ProBNP ~3,000 S/p metoprolol 5 mg IV x 3 with no significant effect on HR S/p dig load, 250 mcg x1, 125 mcg q6h x 2 doses. Continue metoprolol 12.5mg Q6hrs TSH 1.36 Defer HARSH/DCCV as paroxysmal Continue heparin gtt -> start Xarelto tonight Start Amiodarone 400mg BID today Baseline QtC 435msec in NSR 02/19/22 ?? Hx of ARACELI lung cancer s/p VATS with recurrent pleural effusion Drainage system changed in the ED Thoracic surgery following Interval CXR 02/19 without change in hydropneumothorax ?? HTN Hemodynamically stable Continue metoprolol 12.5mg Q6hrs Holding home lisinopril ?? Anxiety Continue home Wellbutrin ?? COPD Hx of smoking Quit 1 yr ago, encouraged continued cessation. Nebs prn Continue spiriva ?? BPH: Continue home tamsulosin GERD: Continue PPI RS3PE: Continue plaquenil ; monitor QtC daily Code Status: Full code DVT Prophylaxis: Heparin infusion Diet: Cardiac Discussed with MD Rosalie Flores PA-C 02/19/2022 [id number] Associated attestation - Ramon Garcia MD - 02/19/2022 12:55 PM EST I have seen and examined the patient, have reviewed labs, pertinent images, and EKGs. I agree with the H&P, formulation, and plan as directed by the Rosalie Champagne Patient had remained in 2:1 atrial flutter overnight, without significant issue. He converted himself this AM, but then went into atrial fibrillation with RVR. Because he is paroxysmally in the atrial dysrhythmia, DCCV is not indicated. However, we can now start amiodarone for rate/rhythm control Anticipate home tomorrow * Nancy Fleming RN - 02/19/2022 5:39 AM EST UFH 0.19 see MAR for Heparin drip rate change and PRN heparin bolus * Nancy Fleming RN - 02/19/2022 5:07 AM EST Images from the original note were not included. * Nancy Fleming RN - 02/19/2022 2:10 AM EST Images from the original note were not included. * Naomie Monteiro RN - 02/18/2022 11:46 AM EST 02/18/22 1134 02/18/22 1137 Adult Vital Signs Temp 36.5 ??C (97.7 ??F) -- Temp src Oral -- Heart Rate from SpO2 (!) 155 bpm (asymptomatic) (!) 153 bpm Heart Rate Source -- Monitor BP 94/68 109/67 MAP (NBP) 71 mmHg 75 mmHg BP Method Automatic Automatic BP Location (NBP) Right arm Right arm Patient Position Sitting Sitting Cardiac Rhythm Atrial flutter (2:1) -- Resp 18 -- SpO2 98 % -- Visual Checks Awake;In bed -- Oxygen Therapy O2 Device RA -- Metoprolol PRN not given, order parameters to give not met, Eren Cesar PA Notified, no neworders given, per provider plan is for NPO after MN w/ DCCV tmrw . Naomie Monteiro RN * Eren Cesar PA - 02/18/2022 10:13 AM EST Images from the original note were not included. Inpatient Cardiology Progress Note Patient Name: Rajan Faulkner Service: PAPER MACHINE BACKTENDER / PA Responsible Attending: Ramon Garcia MD Reason for continued hospitalization: Atrial flutter with rapid ventricular response, awaiting HARSH/DCCV Management of left sided chest tube Active Problems: Active Hospital Problems Diagnosis ??? Atrial flutter Resolved Hospital Problems No resolved problems to display. Interval History: Rajan Faulkner arrived to the cardiology service overnight for evaluation and management of atrial flutter with rapid ventricular response. There were lapses in his therapeutic anticoagulation which would warrant CARROLL assessment prior to potential cardioversion. Denies chest pain, dyspnea, and palpitations. Agreeable for continued hospitalization for rate and rhythm management. Review of Systems: Review of Systems Constitutional: Positive for fatigue. Negative for chills, diaphoresis and fever. Respiratory: Negative for shortness of breath. Cardiovascular: Negative for chest pain, palpitations and leg swelling. Gastrointestinal: Negative for constipation, diarrhea, nausea and vomiting. Neurological: Negative for dizziness, syncope, speech difficulty and light-headedness. Psychiatric/Behavioral: Negative for agitation and confusion. The patient is nervous/anxious. All other systems reviewed and are negative. Telemetry: Atrial flutter with rapid ventricular response HR: 120s-140s Meds: Scheduled Meds: ??? metoproloL tartrate 12.5 mg Oral Q6H EAGLE ??? acetaminophen 1,000 mg Oral Q6H ??? hydrOXYchloroQUINE 200 mg Oral Daily ??? pantoprazole EC 20 mg Oral Daily ??? tiotropium bromide 2 puff Inhalation Daily ??? tamsulosin 0.4 mg Oral Daily ??? sodium chloride 0.9 % (flush) 5 mL Intravenous BID ??? buPROPion SR 150 mg Oral Daily Continuous Infusions: ??? heparin (porcine) infusion 1,250 Units/hr (02/18/22 0840) PRN Meds:metoprolol, sodium chloride 0.9 % (flush), lidocaine, nitroGLYcerin, ipratropium-albuteroL, heparin (porcine) infusion AND heparin (porcine) Physical Exam: Vital Signs: Last value Range last 12 hrs Temperature Temp: 36.8 ??C (98.2 ??F) Temp: [36.7 ??C (98.1 ??F)-36.8 ??C (98.2 ??F)] Heart Rate Heart Rate: (!) 146 Heart Rate: [135-146] Blood Pressure BP: 126/62 BP: (102-126)/(58-74) Respiratory Rate Resp: 19 Resp: [16-19] SpO2 SpO2: 97 % SpO2: [97 %-99 %] Physical Exam Vitals and nursing note reviewed. Constitutional: General: He is not in acute distress. Appearance: Normal appearance. Eyes: General: Right eye: No discharge. Left eye: No discharge. Extraocular Movements: Extraocular movements intact. Conjunctiva/sclera: Conjunctivae normal. Cardiovascular: Rate and Rhythm: Regular rhythm. Tachycardia present. Pulses: Normal pulses. Heart sounds: No murmur heard. No friction rub. No gallop. Pulmonary: Effort: Pulmonary effort is normal. Breath sounds: No wheezing. Comments: Diminished left sided breath sounds Abdominal: General: Bowel sounds are normal. Palpations: Abdomen is soft. Tenderness: There is no abdominal tenderness. There is no guarding. Musculoskeletal: Right lower leg: No edema. Left lower leg: No edema. Skin: General: Skin is warm and dry. Neurological: General: No focal deficit present. Mental Status: He is alert and oriented to person, place, and time. Psychiatric: Mood and Affect: Mood normal. Behavior: Behavior normal. Lab Comments: Recent Labs 02/18/22 0413 02/17/22 1350 WBC 9.5 10.2* HGB 11.7* 11.0* HCT 35.8* 33.6* PLATELET 280 314 No results for input(s): INR in the last 168 hours. Recent Labs 02/18/22 0413 02/17/22 1350 NA 135 138 K 4.2 4.2 CL 103 104 CO2 20* 23 BUN 15 16 CREATININE 0.96 1.04 Recent Labs 02/17/22 1350 AST 18 ALT 12 ALKPHOS 67 BILITOT 0.3 Recent Labs 02/18/22 0413 02/17/22 1350 CALCIUM 9.3 9.6 MAGNESIUM 0.77 0.74 PHOS -- 2.8 No results for input(s): CK, TROPONINT in the last 168 hours. Pertinent Radiographic/Diagnostic Results: Transthoracic Echocardiogram 02/18/2022 Awaiting study Assessment: Rajan Faulkner is a 71 y.o. male with PMH of ASCVD, paroxysmal atrial fibrillation (on Xarelto), history of lung cancer s/p ARACELI resection (03/2021) c/b recurrent pleural effusions (negativecytologyx2) s/p left sided chest tube (02/08/2022), RS3PE, GERD, BPH, COPD, hx of smoking (recently quit 1yr ago), and anxiety who was admitted to the cardiology service for evaluation and management of asympomatic atrial flutter with rapid ventricular response. He underwent a rapid bedside echocardiogram with estimated LVEF of ~35%; will perform formal echocardiogram today. ProBNP ~3,000. Secondary to lapses in his therapeutic anticoagulation, he must undergo CARROLL assessment prior to potential ca rdioversion. Denies any symptoms of this rhythm since presentation. Plan for HARSH/cardioversion; will optimize rate control in the interim. Additionally, his original presentation was secondary to his chest tube not draining properly. Drainage system changed in the ED. Thoracic surgery team following for management of this. Plan: Atrial flutter with RVR History of paroxysmal atrial fibrillation Telemetry monitoring Chest pain protocol Daily weights, monitor I/Os ProBNP ~3,000 S/p metoprolol 5 mg IV x 3 with no significant effect on HR S/p dig load, 250 mcg x1, 125 mcg q6h x 2 doses. Continue metoprolol 12.5mg Q6hrs TSH 1.36 Plan for HARSH/DCCV secondary to missed doses of DOAC Holding home Xarelto, starting heparin drip ?? Hx of ARACELI lung cancer s/p VATS with recurrent pleural effusion Drainage system changed in the ED Thoracic surgery following Interval CXR tomorrow morning (02/19), as directed by the thoracic team ?? HTN Hemodynamically stable Continue metoprolol 12.5mg Q6hrs Holding home lisinopril ?? Anxiety Continue home Wellbutrin ?? COPD Hx of smoking Quit 1 yr ago, encouraged continued cessation. Nebs prn Continue spiriva ?? BPH: Continue home tamsulosin GERD: Continue PPI RS3PE: Continue plaquenil Code Status: Full code DVT Prophylaxis: Heparin infusion Discussed with MD Eren Flores PA-C Pager [phone] 02/18/2022 Associated attestation - Ramon Garcia MD - 02/18/2022 12:42 PM EST I have seen and examined the patient, have reviewed labs, pertinent images, and EKGs. I agree with the H&P, formulation, and plan as directed by the Eren Cesar Asymptomatic of atrial flutter. Echocardiography likely with normal function, though difficult to discern with tachyarrhythmia. Proceed with HARSH/DCCV tomorrow (had to hold xarelto for chest tube placement a couple days ago) documented in this encounter H&P Notes * Sarah Barnes MD - 02/17/2022 5:43 PM EST Cardiology History and Physical Patient Name: Rajan Faulkner Date of : 1950 Age: 71 y.o. Hospital Admit Date: 02/17/2022 Inpatient Attending: Dr. Garcia PCP: Tami Olivia Presenting Diagnosis/Chief Complaint: Aflutter with RVR/Chest tube malfunction History of Present Illness: Rajan Faulkner is a 71 y.o. male with PMH of ASCVD, Afib ( on Xarelto), HTN, COPD, lung cancer s/p ARACELI resection in 03/2021 c/b pleural effusion, s/p left sided chest tube on 02/08 for recurrent pleural effusion , former smoker, depression, RS3PE, GERD, BPH who presented to the ED for evaluation for chest tube. As per pt he was doing fine since discharged from the hospital on 02/10. His chest tube was draininguntil last night. His fiance try to irrigate and suction it but it didn't work. He called thoracic surgery in the morning who advised him to come to the hospital. Besides the chest tube not draining,he denies chest pain but noticed a lump at the site of chest pain. No fever, chills, chest pain, palpitations, orthopnea, PND or pedal edema reported. In the ED pt was afebrile, HR 140s, BP 120/70-100, 100% on RA. Labs with wbc 10, H&H 11/33, [id number], BUN 16, Cr 1. EKG Aflutter with RVR with HR in 140s. Pt received metoprolol 5 mg IV x3 but he remained in Aflutter with 2:1 block. At the time of my evaluation, he denies palpitations, dizziness, lightheadedness, chest pain, shortness of breath, fever, chills. Off note pt held his xarelto for 4 days before surgery on 02/08. REVIEW OF SYSTEMS: Constitutional: weight loss, fatigue, weakness. Psychological: Anxiety / Depression Ophthalmic: blurred vision or watery or red eyes. ENT: Negative for ear discharge or running nose or cold or throat swelling. Allergy: negative for itchy/watery eyes Heme: Negative for bleeding, bruising, fatigue, jaundice, night sweats Endocrine: negative for polydipsia/polyuria/ heat intolerance Respiratory: As as HPI CVS: As in HPI GI: No abd pain, change in bowel habits, or black or bloody stools Genitourinary: No dysuria, trouble voiding, or hematuria Neurological: Negative for dizziness, seizures, syncope, facial asymmetry, speech difficulty, light-headedness, numbness and headaches. Hematological: Negative. MSK: negative for joint pain, joint stiffness or joint swelling Psychiatric/Behavioral: Negative. Previous Diagnostics: Stress: 02/2021 IMPRESSION Normal perfusion imaging. No ischemia or scar. Left ventricular function is normal. ?? Echo: Past Medical History: Past Medical History: Diagnosis Date ??? BPH (benign prostatic hyperplasia) ??? COPD (chronic obstructive pulmonary disease) ??? Coronary artery disease ??? GERD (gastroesophageal reflux disease) ??? Hypertension ??? Synovitis Surgical History/Problems: Past Surgical History: Procedure Laterality Date ??? APPENDECTOMY ??? IR THORACENTESIS LEFT 11/08/2021 IR Thoracentesis Left 11/08/[address] [facility] INTERVENTIONL RAD ??? PRO BRONCHOSCOPY, DIAGNOSTIC N/A 03/29/2021 BRONCHOSCOPY, DIAGNOSTIC (WRVU 2.78) performed by Gilmer Foster MD at [facility] MAIN OR ??? PRO BRONCHOSCOPY, DIAGNOSTIC N/A 02/08/2022 BRONCHOSCOPY, DIAGNOSTIC (WRVU 2.78) performed by Gilmer Foster MD at [facility] MAIN OR ? ? PRO INJECTION ANES AGENT &/ STEROID INTERCOSTAL NERVE SINGLE LEVEL Left 03/29/2021 NERVE BLOCK, INTERCOSTAL NERVE (WRVU 1.18) performed by Gilmer Foster MD at [facility] MAIN OR ??? PRO THORACOSCOPY SURG LOBECTOMY Left 03/29/2021 @THORACOSCOPY,SURGICAL,W\LOBECTOMY,TOTAL OR SEGMENTAL (WRVU 24.64) performed by Johana Foster MD at [facility] MAIN OR ??? PRO THORACOSCOPY WITH BIOPSY OF PLEURA Left 02/08/2022 THORACOSCOPY; WITH BIOPSY(IES) OF PLEURA (WRVU 4.58) [facility] ??? PRO THORACOSCOPY WITH MEDIASTINAL AND REGIONAL LYMPHADENECTOMY 03/29/2021 @THORACOSCOPY, SURG; W/MEDIASTINAL& REGIONAL LYMPHADENECTOMY (WRVU 4.12) performed by Gilmer Foster MD at [facility] MAIN OR ??? PRO THORACOSCOPY WITH WEDGE RESECTION AND ANATOMIC LUNG RESECTN Left 03/29/2021 @THORACOSCOPY, SURG; W/DX WEDGE RESC W/ANATOMIC LUNG RESC (WRVU 3) performed by Johana Foster MD at [facility] MAIN OR Significant Family History: Family History Problem Relation Age of Onset ??? Myocardial Infarction Father Social History: Social History Socioeconomic History ??? Marital status: Spouse name: Not on file ??? Number of children: Not on file ??? Years of education: Not on file ??? Highest education level: Not on file Occupational History ??? Not on file Tobacco Use ??? Smoking status: Former Years: 50.00 Types: Cigarettes ??? Smokeless tobacco: Never ??? Tobacco comments: 1 ppd for the past year Vaping Use ??? Vaping Use: Never used Substance and Sexual Activity ??? Alcohol use: Not on file ??? Drug use: Yes Types: Marijuana Comment: OCC ??? Sexual activity: Not on file Other Topics Concern ??? Not on file Social History Narrative ??? Not on file Social Determinants of Health Financial Resource Strain: Not on file Food Insecurity: Not on file Transportation Needs: Not on file Physical Activity: Not on file Housing Stability: Not on file PHYSICAL EXAM: Last set of vital signs: BP 113/84 (BP Location (NBP): Left arm, Patient Position: Lying) Pulse (!) 135 Temp 36.8 ??C (98.2 ??F) (Oral) Resp 22 Ht 172.7 cm (5' 8) Wt 74.8 kg (165 lb) SpO2 97% BMI 25.09 kg/m?? Gen/Constitutional: Comfortable, NAD HEENT: NELLIE, EOMI, No conjunctival pallor or scleral icterus, JVP not elevated Cardiac/CVS: Tachycardic, normal S1/S2. No S3 or S4, no m/g/r Pulm/Chest: CTAB, no wheezing or crackles Abd/GI: Soft., non tender, non distended, BS+ Musculoskeletal: No pitting edema, Pulses palpable B/L, no calf tenderness, swelling, or erythema. Neuro/ATHLETIC TRAINING INTERNSHIP: AAO x 3, No gross motor deficits. No sensory loss. No gait ataxia. Skin/Integumentary: No ulcer or rash Diagnostics: EKG: Aflutter with RVR with 2:1 conduction, HR in the 140s, no other acute changes. No current facility-administered medications on file prior to encounter. Current Outpatient Medications on File Prior to Encounter Medication Sig Dispense Refill ??? Spiriva Respimat 2.5 mcg/actuation Mist ??? acetaminophen (Tylenol) 500 mg Tablet Take 2 tablets by mouth every 6 hours. 30 tablet 1 ??? rivaroxaban (Xarelto) 20 mg Tablet Take 20 mg by mouth daily. ??? metoprolol succinate XL (Toprol-XL) 25 mg Tablet Sustained Release 24 hr Take 25 mg by mouth daily. ??? lisinopriL (Zestril) 10 mg Tablet Take 10 mg by mouth daily. ??? bupropion HCl [...] 1 tablet by mouth daily. ??? [DISCONTINUED] docusate sodium (Colace) 100 mg Capsule Take 1 capsule by mouth 3 times daily for 10 days. 20 capsule 0 ??? [DISCONTINUED] senna (Senokot) 8.6 mg Tablet Take 1 tablet by mouth every evening. 60 tablet 11 ??? sildenafiL (VIAGRA) 50 mg Tablet TAKE 1/2 TO 1 TABLET BY MOUTH 30 MINUTES PRIOR TO SEXUAL ACTIVITY NEEDED. MAXIMUM DAILY DOSE 2 ??? UNABLE TO FIND Cbd gummies to help with smoking cessation. ??? albuterol sulfate (Proair Digihaler) 90 mcg/actuation aero powdr breath act w/sensor 4 times daily as needed. ??? [DISCONTINUED] fluticasone furoate-vilanteroL (Breo Ellipta) 200-25 mcg/dose Disk with Device Inhale 1 puff into the lungs Daily. LABS: Recent Results (from the past 24 hour(s)) Comprehensive metabolic panel (non-fasting) Result Value Ref Range Glucose Lvl 95 65 - 199 mg/dL BUN 16 10 - 20 mg/dL Creatinine 1.04 0.80 - 1.50 mg/dL Sodium 138 135 - 145 mmol/L Potassium 4.2 3.5 - 5.0 mmol/L Chloride 104 98 - 107 mmol/L CO2 23 22 - 31 mmol/L Anion Gap 11 5 - 15 mmol/L Calcium 9.6 8.5 - 10.5 mg/dL Total Protein 6.8 6.1 - 8.0 g/dL Albumin 3.5 3.2 - 5.2 g/dL AST 18 0 - 39 unit/L ALT 12 0 - 55 unit/L Alk Phos 67 40 - 130 unit/L Total Bilirubin 0.3 0.2 - 1.3 mg/dL Estimated GFR 76 >=60 mL/min/1.73 m?? Phosphorus Result Value Ref Range Phosphorus 2.8 2.5 - 4.5 mg/dL Magnesium Result Value Ref Range Magnesium 0.74 0.69 - 1.07 mmol/L Hemogram Result Value Ref Range WBC 10.2 (H) 4.0 - 9.5 x10(3)/mcL RBC 3.99 (L) 4.58 - 5.54 x10(6)/mcL Hemoglobin 11.0 (L) 13.7 - 16.5 g/dL Hematocrit 33.6 (L) 40.5 - 48.5 % MCV 84.2 82.9 - 93.1 fL MCH 27.6 27.5 - 32.1 pg MCHC 32.7 32.0 - 35.7 g/dL Platelets 314 145 - 357 x10(3)/mcL RDWSD 43.4 36.0 - 45.0 fL RDWCV 14.0 (H) 11.4 - 13.8 % MPV 9.2 7.6 - 12.9 fL nRBC % Auto 0.0 % nRBC Abs Auto 0.000 0.000 - 0.000 x10(3)/mcL Differential, Automated Result Value Ref Range Neutrophils % 74.6 % Neutr Abs (ANC) 7.60 (H) 1.70 - 6.10 x10(3)/mcL Lymphocytes % 13.6 % Lymphocytes Abs 1.4 0.9 - 3.2 x10(3)/mcL Monocytes % 10.8 % Monocyte Abs 1.1 (H) 0.3 - 0.9 x10(3)/mcL Eosinophils % 0.3 % Eosinophils Abs 0.0 0.0 - 0.4 x10(3)/mcL Basophils % 0.3 % Basophils Abs 0.0 0.0 - 0.1 x10(3)/mcL Immature Gran % 0.40 % Kecia Gran Abs 0.04 0.00 - 0.04 x10(3)/mcL Assessment and plan: Rajan Faulkner is a 71 y.o. male with PMH of ASCVD, Afib ( on Xarelto), HTN, COPD, lung cancer s/p ARACELI resection in 03/2021 c/b pleural effusion, s/p left sided chest tube on 02/08 for recurrent pleural effusion , former smoker, depression, RS3PE, GERD, BPH who presented to the ED with chest tube not draining. Pt was found to have Aflutter with RVR, otherwise asymptomatic and hemodynamically stable. He will be admitted to cardiology for rate+/- rhythm control. Pt is currently asymptomatic. #Aflutter with RVR: Asymptomatic #Hx of PAF: #? HFrEF: Possibly tachymyopathy. -admit to cardiology -monitor on Tele -s/p metoprolol 5 mg IV x 3 with no significant effect on HR -Given bedside echo showing EF in the 35%-40% range, will try to minimize negative ionotropes -clinically not in heart failure -start dig load, 250 mcg x1, 125 mcg q6h x 2 doses. -continue metoprolol with increase dose -TTE -check TSH -consider non invasive ischemic evaluation once heart rate improves -NPO for possible HARSH/DCCV -hold Xarelto, starting heparin drip -monitor BP #Hx of ARACELI lung cancer s/p VATS with recurrent pleural effusion, now s/p left sided chest pain -appreciate thoracic surgery -drainage system was changed in the ED #HTN: -BP is stable -Hold lisinopril #Anxiety: -continue Wellbutrin #COPD: #Long standing hx of smoking: quit about 1 year ago -nebs prn -continue spiriva #BPH: -continue flomax #GERD: -continue PPI #RS3PE: -continue plaquenil #Code Status: Full #Diet: NPO after midnight #DVT PPx: Hold Xarelto, start heparin drip Sarah Barnes MD 02/17/2022 Pager # [phone] documented in this encounter ED Notes * Belkis Romo RN - 02/17/2022 5:15 PM EST Pts chest tube dressing changed due to being loose. 2 nurses assisted with dressing change, dressing had serous drainage present, moderate amount. Chest tube insertion site noted to have erythema, swelling and tenderness. Pt reports increased pain with dressing removal. Provider Ben called into room to evaluate the insertion site, photographs obtained for chart at this time. Insertion site cleansed using sterile technique, covered with drain sponges and Occlusive dressing. Pt reports the insertion site does not look right, it looks like its coming out. Pt reassured that per the Xray imaging taken today, the chest tube is in place. Thoracic Surgery notified by . Pt transferred to a hospital bed for comfort. * Belkis Romo RN - 02/17/2022 2:59 PM EST Plan of care to involve Cardiology due to elevated HR communicated with patient and spouse. In reviewing patients chart, pt noted to have a HR of 140-145 on 02/12/22 from the visiting nurses. * Belkis Romo RN - 02/17/2022 2:30 PM EST Pt had 3 doses of Metoprolol five minutes apart his heart rate is 137 at this time. * Belkis Romo RN - 02/17/2022 1:47 PM EST Pts reports patient typically has 150-180ml of out per day from his chest tube. Pt confirmed with provider he did take his Metoprolol this morning. * Michelle Contreras MD - 02/17/2022 1:16 PM EST Images from the original note were not included. ED Resident Note HPI: Rajan Faulkner is a 71 y.o. male with recent history of thoracoscopy with pleural biopsy for recurrent left pleural effusion s/p left upper lobectomy for lung cancer who presents to the Emergency Department requesting evaluation of his dry seal atrium, as it has not been draining today. Per the patient's at bedside, the chest tube has been draining into the atrium, however she has been unableto empty the atrium through the syringe port today, causing backup of fluid into the atrium. The patient has had a persistent air leak since the chest tube was placed, he reports. No rash, pain, swelling, or drainage from chest tube insertion site. [facility] page was activated on patient's arrival due to heart rate in the 150s in triage. The patient denies any complaint of chest pain, shortness of breath, palpitations; no recent fevers, chills, nausea, vomiting, abdominal pain. The patient take metoprolol and Xarelto for his history of paroxysmal atrial fibrillation, denies any missed doses recently. There are no other complaints at this time. Pt was seen under the supervision of an attending physician. Review of Systems Constitutional: Negative for chills and fatigue. Respiratory: Negative for shortness of breath. Cardiovascular: Negative for chest pain and palpitations. Gastrointestinal: Negative for nausea and vomiting. Skin: Negative for rash. All other systems reviewed and are negative. Pertinent positives and negatives are included in the HPI, otherwise at least ten systems were reviewed and negative. Past Medical and Surgical Histories, Social History, Medications, Allergies were reviewed in the chart. Vitals: ED Triage Vitals [02/17/22 1253] BP: (!) 125/100 Heart Rate: (!) 142 Resp: 18 Temp: 36.2 ??C (97.1 ??F) Temp src: Temporal SpO2: 100 % O2 Device: RA O2 Flow Rate (L/min): n/a Physical Exam Vitals and nursing note reviewed. Constitutional: General: He is not in acute distress. Appearance: Normal appearance. HENT: Head: Normocephalic and atraumatic. Mouth/Throat: Mouth: Mucous membranes are moist. Eyes: General: No scleral icterus. Cardiovascular: Rate and Rhythm: Regular rhythm. Tachycardia present. Pulses: Normal pulses. Heart sounds: Normal heart sounds. No murmur heard. No friction rub. No gallop. Pulmonary: Effort: Pulmonary effort is normal. No respiratory distress. Breath sounds: No wheezing, rhonchi or rales. Comments: Left chest tube with overlying dressing, small amount of serous drainage on dressing. Tube is sutured in place, slight erythema, exudate at opening; significant induration at site, no fluctuance, no fluid expressed with palpation. Dry seal atrium with ~200 mL serosanguinous appearing fluid, serous fluid tidaling in tube. Abdominal: General: There is no distension. Palpations: Abdomen is soft. Tenderness: There is no abdominal tenderness. There is no guarding or rebound. Musculoskeletal: Right lower leg: No edema. Left lower leg: No edema. Skin: General: Skin is warm and dry. Neurological: General: No focal deficit present. Mental Status: He is alert and oriented to person, place, and time. ED Course: I have reviewed labs and imaging, images and available reports, and they are significant for: Mild leukocytosis 10.2, anemia 11.0, normal platelet count 314. Chemistry, electrolytes unremarkable. Last 3 wbc, hgb, hct plt Recent Labs 02/17/22 1350 11/08/21 1027 WBC 10.2* 8.8 HGB 11.0* 13.1* HCT 33.6* 38.3* PLATELET 314 287 Last 3 Lytes Recent Labs 02/17/22 1350 01/29/22 1145 10/30/21 1301 NA 138 -- -- K 4.2 -- -- CL 104 -- -- CO2 23 -- -- BUN 16 -- -- CREATININE 1.04 1.11 1.01 GLUCOSE 95 -- -- Last Ca, Mg, Phos Recent Labs 02/17/22 1350 CALCIUM 9.6 PHOS 2.8 MAGNESIUM 0.74 EKG atrial flutter with 2:1 conduction rate 142 bpm; QTc 498 ms. No acute ischemic changes noted. XR Chest PA & Lateral (Generic) Final Result 1. Left chest tube remains in position. 2. There is a small left pneumothorax which has diminished in size. 3. Moderate size left pleural effusion/hemothorax is not significantly changed. Course as of 02/17/22 1902 Sat Feb 17, 2022 1430 Patient remains tachycardic to 140s s/p three doses 5 mg metoprolol. Per records, patient was tachycardic to this same range during home health visits this week. Plan for cardiology involvement to discuss further management. 1515 Surgery air intercept controller supervisor for Thoracic will see the patient in the emergency department; they may be able to get the patient a mini-atrium for discharge. Procedures Assessment and Plan: 71 y.o. male with history of lung cancer s/p left upper lobectomy with recurrent pleural effusion presenting from home for mini atrium malfunction following recent thoracoscopy on 02/08. On exam, thepatient was overall well-appearing, in no distress, equal breath sounds bilaterally. On exam, the patient's mini atrium had approximately 200 mL of serosanguinous fluid; the luer lock port on the atri um appeared to be broken and would not draw. The chamber was replaced with a standard sized atrium with immediate output of approximately 10 mL of serous appearing fluid. Chest x-ray showed appropriate positioning of the chest tube, slight decrease in size to pneumothorax compared to prior x-rays, and similar appearance to pleural effusion compared to prior. General Surgery, air intercept controller supervisor for Thoracic Surgery, examined the patient in the ED. They will follow the patient during his admission. The patient was noted to be tachycardic to 150 bpm on arrival, though the patient had no symptoms including chest pain, shortness of breath, palpitations, dizziness. EKG was remarkable for atrial flutter with 2:1 conduction, rate 142 bpm, no ischemic changes noted. There was no change to the patient's heart rate with exchange of his dry seal atrium. He was given three doses of 5 mg Lopressor fiveminutes apart without any change to his heart rate. Per records, the patient was noted to be tachycardic to the 140s at home during nursing visits at home this week, denied any symptoms during this period. Cardiology was consulted regarding the patient's persistent atrial flutter with rates in the 140s. Reviewed bedside echo findings with cardiology at bedside; given concern for diminished EF in setting of tachyarrhythmia, plan for admission for rate/rhythm control. Will plan for formal TTE tomorrow. The patient and his are agreeable with the plan for admission. The visit findings, diagnosis, and care plan were discussed with the patient. Michelle Contreras MD Resident 02/17/221901 Associated attestation - Sommer Pryor MD - 02/19/2022 7:41 AM EST ED ATTENDING ATTESTATION NOTE The patient was seen in conjunction with the resident physician. I have independently performed thekey portions of the history and physical exam. I have reviewed the nursing notes, vital signs, and all diagnostic studies personally including labs, imaging studies and EKGs. I have discussed the details of the case with the resident and agree with the assessment and plan as described in the resident note unless noted otherwise. * Belkis Romo RN - 02/17/2022 1:02 PM EST Provider Ben at bedside, pts heart rate is 143 on ECG, he denies chest pain, denies feeling his heart goes fast. Pt has history of AFIB. Pt reports his dry Seal Chest tube drain is not draining as it should. Visiting nurses changed his dressing last. Pt denies SOB, chills or fever, Pt denies abdominal pain. Per pt he is on the drain due to air leak, he had one lobe removed for Cancer. documented in this encounter Miscellaneous Notes * Plan of Care - Radha Gunn RN - 02/21/2022 12:14 PM EST OUTCOME EVALUATION NOTE: OUTCOME SUMMARY: Patient A&OX3. OOB independently. HR continues to elevate to 130-140's with activity. Denies dizziness/pressure/sob. Amio drip infusing until time of discharge. S.O at bedside. Reviewed dischargepaperwork. IV dc'd. Tele off. Ride home via private car. Summary faxed to [facility] and report called to RN Problem: Adult Inpatient Plan of Care Goal: Plan of Care Review Outcome: Outcome (s) achieved Goal: Patient-Specific Goal (Individualized) Outcome: Outcome (s) achieved Goal: Absence of Hospital-Acquired Illness or Injury Outcome: Outcome (s) achieved Goal: Optimal Comfort and Wellbeing Outcome: Outcome (s) achieved Goal: Readiness for Transition of Care Outcome: Outcome (s) achieved Problem: Dysrhythmia Goal: Normalized Cardiac Rhythm Outcome: Outcome (s) achieved * Care Management Discharge - Gwyn Wellington RN - 02/21/2022 9:54 AM EST CARE MANAGEMENT FINAL DISCHARGE NOTE Chart reviewed, care reviewed with primary team and at interdisciplinary rounds. Patient is medically ready for discharge to home. Needs for Transition of Care: Plan for discharge is: Home w/ Services Home Health Services: Registered Nurse Agency Referrals & Follow-up Care: Contact information for follow-up [facility] [address] [place] [address] [facility] [place] [address] [facility] [id number] Transportation: family/friend (Eleanor) Functional status prior to admission: Independent, Patient Drives Self Home Environment: Others in the home: significant other. Current Living Arrangements: home/apartment/condo. Accessibility Concerns:one level- front porch with two steps to get in. Has a wheelchair ramp from his mother living with him.. Current Functional Ability: Independent DME used at home: none DME Needed at Discharge: none Patient is insured through: Primary Insurance: [employer] MANAGED MEDICARE Payor: AAR MANAGED MEDICARE / [facility] / Product Type: *No Producttype* / Secondary Insurance: N/A Prescription Coverage: Yes This plan was formulated with input from patient, and team. All are in agreement with plan. I have verbally reviewed Medicare Discharge Rights with patient. Patient verbalizes understanding of right to appeal this discharge if feeling not medically ready. Offered a copy of this letter. Gwyn Wellington RN * Plan of Care - Mk Stanford RN - 02/20/2022 7:36 PM EST Problem: Adult Inpatient Plan of Care Goal: Plan of Care Review Outcome: Ongoing (Interventions Implemented as Appropriate) Goal: Patient-Specific Goal (Individualized) Outcome: Ongoing (Interventions Implemented as Appropriate) Goal: Absence of Hospital-Acquired Illness or Injury Outcome: Ongoing (Interventions Implemented as Appropriate) Goal: Optimal Comfort and Wellbeing Outcome: Ongoing (Interventions Implemented as Appropriate) Goal: Readiness for Transition of Care Outcome: Ongoing (Interventions Implemented as Appropriate) Problem: Dysrhythmia Goal: Normalized Cardiac Rhythm Outcome: Ongoing (Interventions Implemented as Appropriate) * Consult Note - Renu Donald PA - 02/19/2022 2:25 PM EST [facility] Department of Thoracic Surgery Inpatient Consultation Note [place] [address] FAX: Patient Name: Rajan Faulkner Patient : 1950 Patient Patient Location: [address] [place] [address] This consultation request was made by: SOMMER PRYOR, RAMON MEADOWS Consulting thoracic surgery attending: GILMER FOSTER MD HPI: Rajan Faulkner is a 71 y.o. male PMH afib on xarleto (last dose 02/16 PM), HTN, COPD, lung cancer s/pleft upper lobectomy in March 2021 complicated by recurrent pleural effusion now s/p chest tube placement on 02/08. He presents to the Emergency Department requesting evaluation of his dry seal atrium, as it has not been draining since last night. Per the patient's at bedside, the chest tube has been draining into the atrium, however she has been unable to empty the atrium through the syringe port today, causing backup of fluid into the atrium. The patient has had a persistent air leak since the chest tube was placed, he reports. The ED team changed patient to a regular atrium prior to thoracic surgery eval which showed no evidence of air leak even with provocative maneuvers. No rash,pain, swelling, or drainage from chest tube insertion site. Upon presentation to the ED the patientwas found to be tachycardic to the 140s and in aflutter. The patient denies any complaint of chest pain, shortness of breath, palpitations; no recent fevers, chills, nausea, vomiting, abdominal pain.The patient take metoprolol and Xarelto for his history of paroxysmal atrial fibrillation, denies any missed doses recently. Subjective/ 24 hour: - Self converted to sinus and then back to afib. Patient ate so did not cardiovert today Patient feels well overall with pain well controlled. Denies n/v, cp, sob, abdominal pain. Past Medical History: Patient Active Problem List Diagnosis Date Noted [...] ??? Hypertension ??? Synovitis Past Surgical History: Past Surgical History: Procedure Laterality Date ??? APPENDECTOMY ??? IR THORACENTESIS LEFT 11/08/2021 IR Thoracentesis Left 11/08/2021 Forauer, Ramírez Ziegler MD [facility] INTERVENTIONL RAD ??? PRO BRONCHOSCOPY, DIAGNOSTIC N/A 03/29/2021 BRONCHOSCOPY, DIAGNOSTIC (WRVU 2.78) performed by Gilmer Foster MD at [facility] OR ??? PRO BRONCHOSCOPY, DIAGNOSTIC N/A 02/08/2022 BRONCHOSCOPY, DIAGNOSTIC (WRVU 2.78) performed by Gilmer Foster MD at [facility] OR ? ? PRO INJECTION ANES AGENT &/ STEROID INTERCOSTAL NERVE SINGLE LEVEL Left 03/29/2021 NERVE BLOCK, INTERCOSTAL NERVE (WRVU 1.18) performed by Gilmer Foster MD at [facility] OR ??? PRO THORACOSCOPY SURG LOBECTOMY Left 03/29/2021 @THORACOSCOPY,SURGICAL,W\LOBECTOMY,TOTAL OR SEGMENTAL (WRVU 24.64) performed by Johana Foster MD at [facility] OR ??? PRO THORACOSCOPY WITH BIOPSY OF PLEURA Left 02/08/2022 THORACOSCOPY; WITH BIOPSY(IES) OF PLEURA (WRVU 4.58) performed by Gilmer Foster MD at [facility] OR ??? PRO THORACOSCOPY WITH MEDIASTINAL AND REGIONAL LYMPHADENECTOMY 03/29/2021 @THORACOSCOPY, SURG; W/MEDIASTINAL& REGIONAL LYMPHADENECTOMY (WRVU 4.12) performed by Gilmer Foster MD at [facility] OR ??? PRO THORACOSCOPY WITH WEDGE RESECTION AND ANATOMIC LUNG RESECTN Left 03/29/2021 @THORACOSCOPY, SURG; W/DX WEDGE RESC W/ANATOMIC LUNG RESC (WRVU 3) performed by Johana Foster MD at [facility] Medications: Outpatient Medications Marked as Taking for the 02/17/22 encounter (Hospital Encounter) Medication Sig Dispense Refill ??? Spiriva Respimat 2.5 mcg/actuation Mist ??? acetaminophen (Tylenol) 500 mg Tablet Take 2 tablets by mouth every 6 hours. 30 tablet 1 ??? rivaroxaban (Xarelto) 20 mg Tablet Take 20 mg by mouth daily. ??? metoprolol succinate XL (Toprol-XL) 25 mg Tablet Sustained Release 24 hr Take 25 mg by mouth daily. ??? lisinopriL (Zestril) 10 mg Tablet Take 10 mg by mouth daily. ??? bupropion HCl [...] Tablet Take 1 tablet by mouth daily. Allergies: Allergies Allergen Reactions ??? Cat Dander Runny eyes and nose ??? Dog Dander Runny eyes and nose Family History: Family History Problem Relation Age of Onset ??? Myocardial Infarction Father Social History: Social History Socioeconomic History ??? Marital status: Spouse name: Not on file ??? Number of children: Not on file ??? Years of education: Not on file ??? Highest education level: Not on file Occupational History ??? Not on file Tobacco Use ??? Smoking status: Former Years: 50.00 Types: Cigarettes ??? Smokeless tobacco: Never ??? Tobacco comments: 1 ppd for the past year Vaping Use ??? Vaping Use: Never used Substance and Sexual Activity ??? Alcohol use: Not Currently ??? Drug use: Yes Types: Marijuana Comment: OCC ??? Sexual activity: Not Currently Other Topics Concern ??? Not on file Social History Narrative ??? Not on file Social Determinants of Health Financial Resource Strain: Not on file Food Insecurity: Not on file Transportation Needs: Not on file Physical Activity: Not on file Housing Stability: Not on file Review of Systems: Patient denies RI/stroke/TIA/DVT/PE/cancer, problems with kidneys/liver/bleeding/anesthesia, fevers, chills, sweats, weight loss, fatigue, headaches, dizziness, lightheadedness, changes in vision or hearing, chest pain, palpitations, orthopnea, cough, productive cough, hemoptysis, SOB, dyspnea, PRIEST, pleurisy, wheezing, sore throat, dysphagia, odynophagia, nausea, vomiting, hematemesis, abdominal pain, constipation, diarrhea, BRBPR, melena, dysuria, burning, hematuria, paresthesias, cyanosis, edema. Vitals: Temp: [36.7 ??C (98.1 ??F)-37 ??C (98.6 ??F)] Heart Rate: [150-153] Resp: [16-18] BP: (90-123)/(59-100) SpO2: [97 %-100 %] Heart Rate from SpO2: [83 bpm-154 bpm] Wt & BMI By Encounter Date Flowsheet Row ED to Hosp-Admission (Current) from 02/17/2022 in Intermediate Cardiac Care Unit [facility] Admission (Discharged) from 02/08/2022 in Short Stay Unit at [facility] Weight 72.5 kg (159 lb 13.3 oz) 1 02/19/2022 0349 73.3 kg (161 lb 9.6 oz) 1 02/10/2022 0531 BMI 24.56 1 02/18/2022 0500 25.39 1 02/08/2022 1110 Physical Exam: Gen: NAD, A0x3 CVS: Regular rate, irregular rhythm Pulm: Non-labored breathing on RA. L chest tube with no air leak on waterseal, thin ss output. Erythema surrounding chest tube insertion site. GI: nontender; nondistended MSK: WWP, no edema Neuro: moving all 4 extremities spontaneously, nonfocal Wounds/Incisions: Left VATS incisions CDI with evidence of good wound healing. I/O: I/O last 3 completed shifts: In: 1023.7 [P.O.:550; I.V.:473.7] Out: 3177 [Urine:2950; Other:227] Chest tube: left, 226cc total, 51 cc overnight Labs: Recent Results (from the past 72 hour(s)) EKG 12 Lead Result Value Ref Range Ventricular rate 142 BPM Atrial Rate 284 BPM QRS Duration 96 ms Q-T Interval 324 ms QTC Calculated (Bezet) 498 ms Calculated P [place] -101 degrees Calculated R [place] 75 degrees Calculated T [place] -88 degrees INTERPRETATION Atrial flutter with 2:1 A-V conduction Minimal voltage criteria for LVH, may be normal variant ( Yash product ) Abnormal ECG When compared with ECG of 13-FEB-2021 15:15, Atrial flutter has replaced Sinus rhythm Vent. rate has increased BY [address] now depressed in Inferior leads T wave inversion now evident in Inferior leads Nonspecific T wave abnormality now evident in Lateral leads Confirmed by MD Glenda, Rodger ([id number]) on 02/18/2022 4:23:20 PM Comprehensive metabolic panel (non-fasting) Result Value Ref Range Glucose Lvl 95 65 - 199 mg/dL BUN 16 10 - 20 mg/dL Creatinine 1.04 0.80 - 1.50 mg/dL Sodium 138 135 - 145 mmol/L Potassium 4.2 3.5 - 5.0 mmol/L Chloride 104 98 - 107 mmol/L CO2 23 22 - 31 mmol/L Anion Gap 11 5 - 15 mmol/L Calcium 9.6 8.5 - 10.5 mg/dL Total Protein 6.8 6.1 - 8.0 g/dL Albumin 3.5 3.2 - 5.2 g/dL AST 18 0 - 39 unit/L ALT 12 0 - 55 unit/L Alk Phos 67 40 - 130 unit/L Total Bilirubin 0.3 0.2 - 1.3 mg/dL Estimated GFR 76 >=60 mL/min/1.73 m?? Phosphorus Result Value Ref Range Phosphorus 2.8 2.5 - 4.5 mg/dL Magnesium Result Value Ref Range Magnesium 0.74 0.69 - 1.07 mmol/L Hemogram Result Value Ref Range WBC 10.2 (H) 4.0 - 9.5 x10(3)/mcL RBC 3.99 (L) 4.58 - 5.54 x10(6)/mcL Hemoglobin 11.0 (L) 13.7 - 16.5 g/dL Hematocrit 33.6 (L) 40.5 - 48.5 % MCV 84.2 82.9 - 93.1 fL MCH 27.6 27.5 - 32.1 pg MCHC 32.7 32.0 - 35.7 g/dL Platelets 314 145 - 357 x10(3)/mcL RDWSD 43.4 36.0 - 45.0 fL RDWCV 14.0 (H) 11.4 - 13.8 % MPV 9.2 7.6 - 12.9 fL nRBC % Auto 0.0 % nRBC Abs Auto 0.000 0.000 - 0.000 x10(3)/mcL Differential, Automated Result Value Ref Range Neutrophils % 74.6 % Neutr Abs (ANC) 7.60 (H) 1.70 - 6.10 x10(3)/mcL Lymphocytes % 13.6 % Lymphocytes Abs 1.4 0.9 - 3.2 x10(3)/mcL Monocytes % 10.8 % Monocyte Abs 1.1 (H) 0.3 - 0.9 x10(3)/mcL Eosinophils % 0.3 % Eosinophils Abs 0.0 0.0 - 0.4 x10(3)/mcL Basophils % 0.3 % Basophils Abs 0.0 0.0 - 0.1 x10(3)/mcL Immature Gran % 0.40 % Kecia Gran Abs 0.04 0.00 - 0.04 x10(3)/mcL pro-Brain Natriuretic Peptide Result Value Ref Range ProBNP 3,033 (H) <=124 pg/mL TSH Result Value Ref Range TSH 1.36 0.27 - 4.20 mcIU/mL BMP w/fasting Glucose Result Value Ref Range Glucose Fasting 83 65 - 99 mg/dL BUN 15 10 - 20 mg/dL Creatinine 0.96 0.80 - 1.50 mg/dL Sodium 135 135 - 145 mmol/L Potassium 4.2 3.5 - 5.0 mmol/L Chloride 103 98 - 107 mmol/L CO2 20 (L) 22 - 31 mmol/L Anion Gap 12 5 - 15 mmol/L Calcium 9.3 8.5 - 10.5 mg/dL Estimated GFR 84 >=60 mL/min/1.73 m?? Magnesium Result Value Ref Range Magnesium 0.77 0.69 - 1.07 mmol/L Heparin (unfractionated) Level Result Value Ref Range Heparin UFH Level 0.12 IU/mL Hemogram Result Value Ref Range WBC 9.5 4.0 - 9.5 x10(3)/mcL RBC 4.18 (L) 4.58 - 5.54 x10(6)/mcL Hemoglobin 11.7 (L) 13.7 - 16.5 g/dL Hematocrit 35.8 (L) 40.5 - 48.5 % MCV 85.6 82.9 - 93.1 fL MCH 28.0 27.5 - 32.1 pg MCHC 32.7 32.0 - 35.7 g/dL Platelets 280 145 - 357 x10(3)/mcL RDWSD 43.3 36.0 - 45.0 fL RDWCV 14.0 (H) 11.4 - 13.8 % MPV 9.4 7.6 - 12.9 fL nRBC % Auto 0.0 % nRBC Abs Auto 0.000 0.000 - 0.000 x10(3)/mcL Differential, Automated Result Value Ref Range Neutrophils % 69.7 % Neutr Abs (ANC) 6.60 (H) 1.70 - 6.10 x10(3)/mcL Lymphocytes % 18.0 % Lymphocytes Abs 1.7 0.9 - 3.2 x10(3)/mcL Monocytes % 11.2 % Monocyte Abs 1.1 (H) 0.3 - 0.9 x10(3)/mcL Eosinophils % 0.3 % Eosinophils Abs 0.0 0.0 - 0.4 x10(3)/mcL Basophils % 0.5 % Basophils Abs 0.0 0.0 - 0.1 x10(3)/mcL Immature Gran % 0.30 % Kecia Gran Abs 0.03 0.00 - 0.04 x10(3)/mcL EKG 12 Lead Result Value Ref Range Ventricular rate 145 BPM Atrial Rate 290 BPM QRS Duration 92 ms Q-T Interval 354 ms QTC Calculated (Bezet) 549 ms Calculated P [place] 89 degrees Calculated R [place] 73 degrees Calculated T [place] -131 degrees INTERPRETATION Atrial flutter with 2:1 A-V conduction Minimal voltage criteria for LVH, may be normal variant Abnormal ECG When compared with ECG of 17-FEB-2022 13:18, (unconfirmed) No significant change was found Confirmed by MD Garcia Daniel ([id number]) on 02/18/2022 1:36:02 PM Echocardiogram Transthoracic Result Value Ref Range EF 52 Heparin (unfractionated) Level Result Value Ref Range Heparin UFH Level 0.16 IU/mL Heparin (unfractionated) Level Result Value Ref Range Heparin UFH Level 0.06 IU/mL BMP w/fasting Glucose Result Value Ref Range Glucose Fasting 96 65 - 99 mg/dL BUN 19 10 - 20 mg/dL Creatinine 1.07 0.80 - 1.50 mg/dL Sodium 137 135 - 145 mmol/L Potassium 4.3 3.5 - 5.0 mmol/L Chloride 101 98 - 107 mmol/L CO2 23 22 - 31 mmol/L Anion Gap 13 5 - 15 mmol/L Calcium 9.4 8.5 - 10.5 mg/dL Estimated GFR 74 >=60 mL/min/1.73 m?? Magnesium Result Value Ref Range Magnesium 0.82 0.69 - 1.07 mmol/L Heparin (unfractionated) Level Result Value Ref Range Heparin UFH Level 0.19 IU/mL Hemogram Result Value Ref Range WBC 10.9 (H) 4.0 - 9.5 x10(3)/mcL RBC 4.19 (L) 4.58 - 5.54 x10(6)/mcL Hemoglobin 11.7 (L) 13.7 - 16.5 g/dL Hematocrit 35.4 (L) 40.5 - 48.5 % MCV 84.5 82.9 - 93.1 fL MCH 27.9 27.5 - 32.1 pg MCHC 33.1 32.0 - 35.7 g/dL Platelets 279 145 - 357 x10(3)/mcL RDWSD 43.1 36.0 - 45.0 fL RDWCV 14.0 (H) 11.4 - 13.8 % MPV 10.1 7.6 - 12.9 fL nRBC % Auto 0.0 % nRBC Abs Auto 0.000 0.000 - 0.000 x10(3)/mcL Differential, Automated Result Value Ref Range Neutrophils % 70.0 % Neutr Abs (ANC) 7.63 (H) 1.70 - 6.10 x10(3)/mcL Lymphocytes % 17.6 % Lymphocytes Abs 1.9 0.9 - 3.2 x10(3)/mcL Monocytes % 11.2 % Monocyte Abs 1.2 (H) 0.3 - 0.9 x10(3)/mcL Eosinophils % 0.4 % Eosinophils Abs 0.0 0.0 - 0.4 x10(3)/mcL Basophils % 0.4 % Basophils Abs 0.0 0.0 - 0.1 x10(3)/mcL Immature Gran % 0.40 % Kecia Gran Abs 0.04 0.00 - 0.04 x10(3)/mcL Hepatic Function Panel Result Value Ref Range Total Protein 6.7 6.1 - 8.0 g/dL Albumin 3.3 3.2 - 5.2 g/dL AST Not Perf 0 - 39 ALT 13 0 - 55 unit/L Alk Phos 72 40 - 130 unit/L Total Bilirubin 0.4 0.2 - 1.3 mg/dL Bili, Direct 0.1 0.0 - 0.3 mg/dL EKG 12 Lead Result Value Ref Range Ventricular rate 144 BPM Atrial Rate 300 BPM QRS Duration 90 ms Q-T Interval 332 ms QTC Calculated (Bezet) 514 ms Calculated R [place] 71 degrees Calculated T [place] -130 degrees INTERPRETATION Atrial flutter with variable A-V block Minimal voltage criteria for LVH, may be normal variant ( Yash product ) Abnormal ECG When compared with ECG of 18-FEB-2022 06:25, ST no longer depressed in Inferior leads Nonspecific T wave abnormality, improved in Anterolateral leads EKG 12 Lead Result Value Ref Range Ventricular rate 78 BPM QRS Duration 98 ms Q-T Interval 382 ms QTC Calculated (Bezet) 435 ms Calculated R [place] 90 degrees Calculated T [place] 72 degrees INTERPRETATION Atrial fibrillation Rightward axis Possible Anterior infarct , age undetermined Abnormal ECG When compared with ECG of 19-FEB-2022 06:14, (unconfirmed) Atrial fibrillation has replaced Atrial flutter Vent. rate has decreased BY 66 BPM Nonspecific T wave abnormality no longer evident in Inferior leads T wave inversion now evident in Anterior leads EKG 12 Lead Result Value Ref Range Ventricular rate 121 BPM QRS Duration 108 ms Q-T Interval 326 ms QTC Calculated (Bezet) 462 ms Calculated R [place] 78 degrees Calculated T [place] -112 degrees INTERPRETATION Atrial fibrillation with rapid ventricular response Minimal voltage criteria for LVH, may be normal variant ( Pryor product ) Nonspecific T wave abnormality Abnormal ECG When compared with ECG of 19-FEB-2022 09:38, (unconfirmed) Atrial fibrillation has replaced Sinus rhythm Vent. rate has increased BY 43 BPM Nonspecific T wave abnormality now evident in Inferior leads Nonspecific T wave abnormality has replaced inverted T waves in Anterior leads Heparin (unfractionated) Level Result Value Ref Range Heparin UFH Level 0.22 IU/mL Diagnostics: Results for orders placed or performed during the hospital encounter of 02/17/22 XR Chest PA & Lateral (Generic) (Exam End: 02/17/2022 2:05 PM) Impression 1. Left chest tube remains in position. 2. There is a small left pneumothorax which has diminished in size. 3. Moderate size left pleural effusion/hemothorax is not significantly changed. Thank you for letting us participate in the care of this patient. If you are a health care provider and have any questions regarding this report, please contact the number below. For patients who have questions please contact the health rn acute care that requested your imaging first. Chest PA & Lateral (Generic) (Exam End: 02/18/2022 6:15 AM) Impression Stable examination with stable position of the left chest tube and no significant interval change of the left hydropneumothorax. I have personally reviewed the image(s) and the resident's interpretation and agree with the findings, Sheeba Woods MD at 02/18/2022 6:41 AM Thank you for letting us participate in the care of this patient. If you are a health care provider and have any questions regarding this report, please contact the number below. For patients who have questions please contact the health rn acute care that requested your imaging first. Chest PA & Lateral (Generic) (Exam End: 02/19/2022 4:53 AM) Impression Stable examination with unchanged size of the left hydropneumothorax. Thank you for letting us participate in the care of this patient. If you are a health care provider and have any questions regarding this report, please contact the number below. For patients who have questions please contact the health rn acute care that requested your imaging first. Micro: None Assessment: Rajan Faulkner is a 71 y.o. male with a PMH afib on xarleto (last dose 02/16 PM), HTN, COPD, lung cancer s/p left upper lobectomy in March 2021 complicated by recurrent pleural effusion now s/p chesttube placement on 02/08. He presented to the Emergency Department with a clogged mini atrium and wasfound to be in afib with RVR. The patient self converted to sinus rhythm today briefly but soon after went back into afib. He hadeaten lunch so cardioversion was deferred. He continues to have no air leak on water seal and minimal output from his chest tube. Recommendations: 1. We will remove chest tube today 2. Keep occlusive chest tube dressing in place for 48 hours, at which point it may be removed and left open to air. Discharge instructions updated. 3. Rest of care per primary team. All plans formulated in discussion with and directed by attending thoracic surgeon Dr. Foster. STEVE Peñaloza 02/19/2022 Thoracic Surgery Service Pager [phone] Associated attestation - Gilmer Foster MD - 02/20/2022 2:52 PM EST I saw and examined the patient with the residents and agree with the findings, assessment and plan.In brief, this 71-year-old man had a persistent air leak after a pleural biopsy. I advised him thathis pathology was negative for malignancy and we removed his chest tube. He will follow-up with me in 2 weeks for a wound check and PA and lateral chest x-ray. GILMER FOSTER MD * Care Management - Gwyn Wellington RN - 02/19/2022 1:56 PM EST OFFICE OF CARE MANAGEMENT PROGRESS NOTE LOS: Hospital Day 2 days Chart reviewed, care reviewed with primary team and at interdisciplinary rounds. Patient continues to meet inpatient level of care related to: Atrial Flutter Decision Maker: Self Functional status prior to admission: Independent, Patient Drives Self Home Environment: Others in the home: significant other. Current Living Arrangements: home/apartment/condo. Accessibility Concerns: one level- front porch with two steps to get in. Has a wheelchair ramp fromhis mother living with him.. Current Functional Ability: Independent DME used at home: none DME Needed at Discharge: TBD Patient is insured through: Primary Insurance: [facility] MANAGED MEDICARE Payor: [facility] MANAGED MEDICARE / Plan: [facility]TE / Product Type: *No Producttype* / Secondary Insurance: N/A Last Physical Therapy Recommendation: with Last Occupational Therapy Recommendation: with Plan for discharge is: Home with family; services to be determined Agency Referrals: Suha ZAMUDIO Transportation: family Barriers to discharge: Discharge planning Plan going forward: Care Management will continue to follow and assist with discharge planning and coordination of care as indicated. Anticipated Date of Discharge: 02/20/2022 Gwyn Wellington RN * Plan of Care - Rosalie Champagne PA - 02/19/2022 8:34 AM EST Images from the original note were not included. HARSH Pre Procedure Note The indications, expected benefits and potential risks of HARSH were reviewed in detail with the patient. The potential for damage to the esophagus,including perforation; aspiration; rarely ; infection; allergic reaction to medications including nausea,vomiting, or rash; bleeding; changes in heart rate or rhythm requiring treatment; changes in breathing requiring treatment, including spasm of the vocal cords or airway passages; decreased level of oxygen in the blood or congestive heart failure; angina pectoris; sore throat; damage to teeth. After a discussion about the above, and having answered all questions posed, the patient was provided with a consent which was reviewed and signed. ASA: 2: Patient with mild systemic disease Mallampati: II: tonsillar pillars are blocked by the tongue Sedation Plan: moderate (conscious sedation) Assessment and Plan: Proceed with HARSH, see progress note from today for further details. STEVE Johnson 02/19/2022 Pager [phone] * Plan of Funmi - Eren Cesar PA - 02/18/2022 3:56 PM EST Images from the original note were not included. HARSH Pre Procedure Note The indications, expected benefits and potential risks of HARSH were reviewed in detail with the patient. The potential for damage to the esophagus,including perforation; aspiration; rarely ; infection; allergic reaction to medications including nausea,vomiting, or rash; bleeding; changes in heart rate or rhythm requiring treatment; changes in breathing requiring treatment, including spasm of the vocal cords or airway passages; decreased level of oxygen in the blood or congestive heart failure; angina pectoris; sore throat; damage to teeth. After a discussion about the above, and having answered all questions posed, the patient was provided with a consent which was reviewed and signed. ASA: 3: Patient with severe systemic disease Mallampati: II: tonsillar pillars are blocked by the tongue Sedation Plan: moderate (conscious sedation) Assessment and Plan: Proceed with HARSH, see progress note from today for further details. STEVE Mack 02/18/2022 Pager [phone] * Initial Assessments - Isa Lew RN - 02/18/2022 2:08 PM EST Office of Care Management Initial Assessment ISA LEW RN reviewed record and discussed patient with Care Team. Source of Information: Team, bedside nurse, medical record, and Patient Introduced self/reviewed role; services accepted. Reason for Hospitalization: issues with his chest tube at home came to hospital to have the issues addressed and he was diagnosed with Atrial flutter with rapid ventricular response, awaiting HARSH/DCCV Management of left sided chest tube- patient had atrium at home that stopped draining. Covid Vaccination Status: 1st, 2nd & booster Last COVID test: Lab Results Component Value Date COVID19 Not Detected 03/26/2021 Past medical History: Past Medical History: Diagnosis Date ??? BPH (benign prostatic hyperplasia) ??? COPD (chronic obstructive pulmonary disease) ??? Coronary artery disease ??? GERD (gastroesophageal reflux disease) ??? Hypertension ??? Synovitis Hospitalizations Within the Past 30 Days: current reason for admission unrelated to previous admission Current Decision-Making Capacity: Self Patient is aware that his significant other would not be the DPOA-H unless he completed ADs. According to the surrogacy law, his daughter would be the DPOA. He is aware of the need to complete the documents if he wanted Eleanor, his significant other as his DPOA. If AD's have not been completed the following surrogate would be surrogate decision maker per [place] surrogate decision making law. (Only good for 180 days) Any patient receiving care in [place] must abide by [place] law. The hierarchy for surrogate decision making [...] (i) The agent with financial power of metal buildings assembler or a conservator appointed in accordance with RSA 464-A. (j) The guardian of the patient???s estate. Advance Care Planning: Attempt Cardiopulmonary Resuscitation - Inpatient <no information> -Advanced Directive: No, declines Current Coping/Education/Information Needs: Current Functional Ability: Independent Functional Status Prior to Admission: Independent, Patient Drives Self Prior ADLs & IADLs: Independent with all ADLs & IADLs Home Environment: Others in the home: significant other. Current Living Arrangements: home/apartment/condo. Accessibility Concerns:one level- front porch with two steps to get in. Has a wheelchair ramp from his mother living with him.. Resource / Environmental Concerns: Resource/Environmental Concerns: none Current DME: none Home Address confirmed as: [address] [place] [phone] Social & Family Supports: All names listed below confirmed with patient as current and correct Extended Emergency Contact Information Primary Emergency Contact: ELEANOR PRADO Mobile Relation: Significant Other Current Care Provided by: spouse/significant other (she helps with chest tube.) Provides Primary Care For: no one Quality of Family relationships: supportive, helpful Community Resources being provided currently: homecare agency- followed by [facility] [place] [address] PHONE: [phone] FAX: [phone] Behavioral Health History: none discussed Substance Use/Abuse listed: Social History Tobacco Use Smoking Status Former ??? Years: 50.00 ??? Types: Cigarettes Smokeless Tobacco Never Tobacco Comments 1 ppd for the past year In the past year have you used an illegal drug or used a prescription medication for non-medical reasons?: No 0 No problems reported 1-2 Low level 3-5 Moderate level 6-8 Substantial level 9- 10 Severe level In the past year have you had 5 or more drinks a day containing alcohol?: No 0 to 7 points: Low risk 8 to 15 points: Medium risk 16 to 19 points: High risk 20 to 40 points: Addiction likely Other Pertinent/Service Specific Information: Health/Prescription Coverage: Primary Insurance: [facility] MANAGED MEDICARE Payor: [facility] MANAGED MEDICARE / Plan: [facility] COMPLETE / Product Type: *No Producttype* / Secondary Insurance: N/A ONLY if patient has Medicare A&B - Does this patient have secondary insurance?: Yes ; Prescription Coverage: Yes Preferred Pharmacy: [id number] - [address] [address] Status: Patient is a : No Primary Care Provider confirmed: Tami Olivia [phone] Patient/Caregiver Goals of Treatment: Potential Needs for Transition of Care: home health care Agency Referrals: Resumption of services with: [facility]. [address] [facility] [address] PHONE: [phone] FAX: [phone] He gets RN services for his atrium. Transportation: no concerns Transportation Anticipated: family or friend will provide Concerns to be Addressed: discharge planning Assessment: Patient is admitted to Cardiology service for Atrial flutter with rapid ventricular response, awaiting HARSH/DCCV Management of left sided chest tube Plan: Send note to RS to upload referral to [facility] for resumption of services. A member of the Care Management team will continue to monitor progress, follow for continuity of care and assist with transition of care planning. Covering pager #[phone] for today. * Consult Note - Bi Baez MD - 02/18/2022 10:08 AM EST [facility] Department of Thoracic Surgery Inpatient Consultation Note [facility] [address] [facility] [address] [place], [place] [address] FAX: Patient Name: Rajan Faulkner Patient : 1950 Patient Patient Location: [address] [place] [address] This consultation request was made by: SOMMER PRYOR, RAMON MEADOWS Consulting thoracic surgery attending: Dr. Tanner HPI: Rajan Faulkner is a 71 y.o. male PMH afib on xarleto (last dose 02/16 PM), HTN, COPD, lung cancer s/pleft upper lobectomy in March 2021 complicated by recurrent pleural effusion now s/p chest tube placement on 02/08. He presents to the Emergency Department requesting evaluation of his dry seal atrium, as it has not been draining since last night. Per the patient's at bedside, the chest tube has been draining into the atrium, however she has been unable to empty the atrium through the syringe port today, causing backup of fluid into the atrium. The patient has had a persistent air leak since the chest tube was placed, he reports. The ED team changed patient to a regular atrium prior to thoracic surgery eval which showed no evidence of air leak even with provocative maneuvers. No rash,pain, swelling, or drainage from chest tube insertion site. Upon presentation to the ED the patientwas found to be tachycardic to the 140s and in aflutter. The patient denies any complaint of chest pain, shortness of breath, palpitations; no recent fevers, chills, nausea, vomiting, abdominal pain.The patient take metoprolol and Xarelto for his history of paroxysmal atrial fibrillation, denies any missed doses recently. Subjective/ 24 hour: - A-fib non responsive to metoprolol. Started on digoxin load and metop contined. Cardiology plans for TTE - Feels well otherwise, Denies fevers, chills, cough, SOB, chest pain, abdominal pain, N/V, diarrhea/ constipation or any other concerns at this time. Past Medical History: Patient Active Problem List Diagnosis Date Noted [...] ??? Hypertension ??? Synovitis Past Surgical History: Past Surgical History: Procedure Laterality Date ??? APPENDECTOMY ??? IR THORACENTESIS LEFT 11/08/2021 IR Thoracentesis Left 11/08/[address] [facility] INTERVENTIONL RAD ??? PRO BRONCHOSCOPY, DIAGNOSTIC N/A 03/29/2021 BRONCHOSCOPY, DIAGNOSTIC (WRVU 2.78) performed by Gilmer Foster MD at [facility] MA[facility] OR ??? PRO BRONCHOSCOPY, DIAGNOSTIC N/A 02/08/2022 BRONCHOSCOPY, DIAGNOSTIC (WRVU 2.78) performed by Gilmer Foster MD at [facility] OR ? ? PRO INJECTION ANES AGENT &/ STEROID INTERCOSTAL NERVE SINGLE LEVEL Left 03/29/2021 NERVE BLOCK, INTERCOSTAL NERVE (WRVU 1.18) performed by Gilmer Foster MD at [facility] OR ??? PRO THORACOSCOPY SURG LOBECTOMY Left 03/29/2021 @THORACOSCOPY,SURGICAL,W\LOBECTOMY,TOTAL OR SEGMENTAL (WRVU 24.64) performed by Johana Foster MD at [facility] MAIN OR ??? PRO THORACOSCOPY WITH BIOPSY OF PLEURA Left 02/08/2022 THORACOSCOPY; WITH BIOPSY(IES) OF PLEURA (WRVU 4.58) performed by Gilmer Foster MD at [facility] OR ??? PRO THORACOSCOPY WITH MEDIASTINAL AND REGIONAL LYMPHADENECTOMY 03/29/2021 @THORACOSCOPY, SURG; W/MEDIASTINAL& REGIONAL LYMPHADENECTOMY (WRVU 4.12) performed by Gilmer Foster MD at [facility] MA[facility] OR ??? PRO THORACOSCOPY WITH WEDGE RESECTION AND ANATOMIC LUNG RESECTN Left 03/29/2021 @THORACOSCOPY, SURG; W/DX WEDGE RESC W/ANATOMIC LUNG RESC (WRVU 3) performed by Johana Foster MD at [facility] MA[facility] OR Medications: Outpatient Medications Marked as Taking for the 02/17/22 encounter (Hospital Encounter) Medication Sig Dispense Refill ??? Spiriva Respimat 2.5 mcg/actuation Mist ??? acetaminophen (Tylenol) 500 mg Tablet Take 2 tablets by mouth every 6 hours. 30 tablet 1 ??? rivaroxaban (Xarelto) 20 mg Tablet Take 20 mg by mouth daily. ??? metoprolol succinate XL (Toprol-XL) 25 mg Tablet Sustained Release 24 hr Take 25 mg by mouth daily. ??? lisinopriL (Zestril) 10 mg Tablet Take 10 mg by mouth daily. ??? bupropion HCl [...] Tablet Take 1 tablet by mouth daily. Allergies: Allergies Allergen Reactions ??? Cat Dander Runny eyes and nose ??? Dog Dander Runny eyes and nose Family History: Family History Problem Relation Age of Onset ??? Myocardial Infarction Father Social History: Social History Socioeconomic History ??? Marital status: Spouse name: Not on file ??? Number of children: Not on file ??? Years of education: Not on file ??? Highest education level: Not on file Occupational History ??? Not on file Tobacco Use ??? Smoking status: Former Years: 50.00 Types: Cigarettes ??? Smokeless tobacco: Never ??? Tobacco comments: 1 ppd for the past year Vaping Use ??? Vaping Use: Never used Substance and Sexual Activity ??? Alcohol use: Not Currently ??? Drug use: Yes Types: Marijuana Comment: OCC ??? Sexual activity: Not Currently Other Topics Concern ??? Not on file Social History Narrative ??? Not on file Social Determinants of Health Financial Resource Strain: Not on file Food Insecurity: Not on file Transportation Needs: Not on file Physical Activity: Not on file Housing Stability: Not on file Review of Systems: Patient denies RI/stroke/TIA/DVT/PE/cancer, problems with kidneys/liver/bleeding/anesthesia, fevers, chills, sweats, weight loss, fatigue, headaches, dizziness, lightheadedness, changes in vision or hearing, chest pain, palpitations, orthopnea, cough, productive cough, hemoptysis, SOB, dyspnea, PRIEST, pleurisy, wheezing, sore throat, dysphagia, odynophagia, nausea, vomiting, hematemesis, abdominal pain, constipation, diarrhea, BRBPR, melena, dysuria, burning, hematuria, paresthesias, cyanosis, edema. Vitals: Temp: [36.2 ??C (97.1 ??F)-37 ??C (98.6 ??F)] Heart Rate: [135-146] Resp: [13-30] BP: (94-125)/(58-100) SpO2: [96 %-100 %] Heart Rate from SpO2: [123 bpm-144 bpm] Wt & BMI By Encounter Date Flowsheet Row ED to Hosp-Admission (Current) from 02/17/2022 in Intermediate Cardiac Care Unit [facility] Admission (Discharged) from 02/08/2022 in Short Stay Unit at [facility] Weight 73.3 kg (161 lb 8 oz) 1 02/18/2022 0500 73.3 kg (161 lb 9.6 oz) 1 02/10/2022 0531 BMI 24.56 1 02/18/2022 0500 25.39 1 02/08/2022 1110 Physical Exam: Gen: NAD, A0x3 CVS: Tachycardic, irregular rhythm Pulm: decreased sounds at L lung base, otherwise breathing comfortably on RA; L chest tube with no air leak on waterseal, thin ss output. Tube palpable under skin at rib insertion site, slight erythema at suture location GI: nontender; nondistended MSK: WWP, no edema Neuro: moving all 4 extremities spontaneously, nonfoca I/O: I/O last 3 completed shifts: In: 0 Out: 1311 [Urine:1275; Other:36] Chest tube: left, 36cc total, 1 cc overnight Labs: Recent Results (from the past 72 hour(s)) EKG 12 Lead Result Value Ref Range Ventricular rate 142 BPM Atrial Rate 284 BPM QRS Duration 96 ms Q-T Interval 324 ms QTC Calculated (Bezet) 498 ms Calculated P [place] -101 degrees Calculated R [place] 75 degrees Calculated T [place] -88 degrees INTERPRETATION Atrial flutter with 2:1 A-V conduction Minimal voltage criteria for LVH, may be normal variant ( Yash product ) Abnormal ECG When compared with ECG of 13-FEB-2021 15:15, Atrial flutter has replaced Sinus rhythm Vent. rate has increased BY [address] now depressed in Inferior leads T wave inversion now evident in Inferior leads Nonspecific T wave abnormality now evident in Lateral leads Comprehensive metabolic panel (non-fasting) Result Value Ref Range Glucose Lvl 95 65 - 199 mg/dL BUN 16 10 - 20 mg/dL Creatinine 1.04 0.80 - 1.50 mg/dL Sodium 138 135 - 145 mmol/L Potassium 4.2 3.5 - 5.0 mmol/L Chloride 104 98 - 107 mmol/L CO2 23 22 - 31 mmol/L Anion Gap 11 5 - 15 mmol/L Calcium 9.6 8.5 - 10.5 mg/dL Total Protein 6.8 6.1 - 8.0 g/dL Albumin 3.5 3.2 - 5.2 g/dL AST 18 0 - 39 unit/L ALT 12 0 - 55 unit/L Alk Phos 67 40 - 130 unit/L Total Bilirubin 0.3 0.2 - 1.3 mg/dL Estimated GFR 76 >=60 mL/min/1.73 m?? Phosphorus Result Value Ref Range Phosphorus 2.8 2.5 - 4.5 mg/dL Magnesium Result Value Ref Range Magnesium 0.74 0.69 - 1.07 mmol/L Hemogram Result Value Ref Range WBC 10.2 (H) 4.0 - 9.5 x10(3)/mcL RBC 3.99 (L) 4.58 - 5.54 x10(6)/mcL Hemoglobin 11.0 (L) 13.7 - 16.5 g/dL Hematocrit 33.6 (L) 40.5 - 48.5 % MCV 84.2 82.9 - 93.1 fL MCH 27.6 27.5 - 32.1 pg MCHC 32.7 32.0 - 35.7 g/dL Platelets 314 145 - 357 x10(3)/mcL RDWSD 43.4 36.0 - 45.0 fL RDWCV 14.0 (H) 11.4 - 13.8 % MPV 9.2 7.6 - 12.9 fL nRBC % Auto 0.0 % nRBC Abs Auto 0.000 0.000 - 0.000 x10(3)/mcL Differential, Automated Result Value Ref Range Neutrophils % 74.6 % Neutr Abs (ANC) 7.60 (H) 1.70 - 6.10 x10(3)/mcL Lymphocytes % 13.6 % Lymphocytes Abs 1.4 0.9 - 3.2 x10(3)/mcL Monocytes % 10.8 % Monocyte Abs 1.1 (H) 0.3 - 0.9 x10(3)/mcL Eosinophils % 0.3 % Eosinophils Abs 0.0 0.0 - 0.4 x10(3)/mcL Basophils % 0.3 % Basophils Abs 0.0 0.0 - 0.1 x10(3)/mcL Immature Gran % 0.40 % Kecia Gran Abs 0.04 0.00 - 0.04 x10(3)/mcL pro-Brain Natriuretic Peptide Result Value Ref Range ProBNP 3,033 (H) <=124 pg/mL TSH Result Value Ref Range TSH 1.36 0.27 - 4.20 mcIU/mL BMP w/fasting Glucose Result Value Ref Range Glucose Fasting 83 65 - 99 mg/dL BUN 15 10 - 20 mg/dL Creatinine 0.96 0.80 - 1.50 mg/dL Sodium 135 135 - 145 mmol/L Potassium 4.2 3.5 - 5.0 mmol/L Chloride 103 98 - 107 mmol/L CO2 20 (L) 22 - 31 mmol/L Anion Gap 12 5 - 15 mmol/L Calcium 9.3 8.5 - 10.5 mg/dL Estimated GFR 84 >=60 mL/min/1.73 m?? Magnesium Result Value Ref Range Magnesium 0.77 0.69 - 1.07 mmol/L Heparin (unfractionated) Level Result Value Ref Range Heparin UFH Level 0.12 IU/mL Hemogram Result Value Ref Range WBC 9.5 4.0 - 9.5 x10(3)/mcL RBC 4.18 (L) 4.58 - 5.54 x10(6)/mcL Hemoglobin 11.7 (L) 13.7 - 16.5 g/dL Hematocrit 35.8 (L) 40.5 - 48.5 % MCV 85.6 82.9 - 93.1 fL MCH 28.0 27.5 - 32.1 pg MCHC 32.7 32.0 - 35.7 g/dL Platelets 280 145 - 357 x10(3)/mcL RDWSD 43.3 36.0 - 45.0 fL RDWCV 14.0 (H) 11.4 - 13.8 % MPV 9.4 7.6 - 12.9 fL nRBC % Auto 0.0 % nRBC Abs Auto 0.000 0.000 - 0.000 x10(3)/mcL Differential, Automated Result Value Ref Range Neutrophils % 69.7 % Neutr Abs (ANC) 6.60 (H) 1.70 - 6.10 x10(3)/mcL Lymphocytes % 18.0 % Lymphocytes Abs 1.7 0.9 - 3.2 x10(3)/mcL Monocytes % 11.2 % Monocyte Abs 1.1 (H) 0.3 - 0.9 x10(3)/mcL Eosinophils % 0.3 % Eosinophils Abs 0.0 0.0 - 0.4 x10(3)/mcL Basophils % 0.5 % Basophils Abs 0.0 0.0 - 0.1 x10(3)/mcL Immature Gran % 0.30 % Kecia Gran Abs 0.03 0.00 - 0.04 x10(3)/mcL EKG 12 Lead Result Value Ref Range Ventricular rate 145 BPM Atrial Rate 290 BPM QRS Duration 92 ms Q-T Interval 354 ms QTC Calculated (Bezet) 549 ms Calculated P [place] 89 degrees Calculated R [place] 73 degrees Calculated T [place] -131 degrees INTERPRETATION Atrial flutter with 2:1 A-V conduction Minimal voltage criteria for LVH, may be normal variant ( Pryor product ) Nonspecific ST and T wave abnormality Abnormal ECG When compared with ECG of 17-FEB-2022 13:18, (unconfirmed) Nonspecific T wave abnormality, worse in Anterolateral leads Diagnostics: Results for orders placed or performed during the hospital encounter of 02/17/22 XR Chest PA & Lateral (Generic) (Exam End: 02/17/2022 2:05 PM) Impression 1. Left chest tube remains in position. 2. There is a small left pneumothorax which has diminished in size. 3. Moderate size left pleural effusion/hemothorax is not significantly changed. Thank you for letting us participate in the care of this patient. If you are a health care provider and have any questions regarding this report, please contact the number below. For patients who have questions please contact the health rn acute care that requested your imaging first. Chest PA & Lateral (Generic) (Exam End: 02/18/2022 6:15 AM) Impression Stable examination with stable position of the left chest tube and no significant interval change of the left hydropneumothorax. I have personally reviewed the image(s) and the resident's interpretation and agree with the findings, Sheeba Woods MD at 02/18/2022 6:41 AM Thank you for letting us participate in the care of this patient. If you are a health care provider and have any questions regarding this report, please contact the number below. For patients who have questions please contact the health rn acute care that requested your imaging first. Micro: None Assessment: Rajan Faulkner is a 71 y.o. male with a PMH afib on xarleto (last dose 02/16 PM), HTN, COPD, lung cancer s/p left upper lobectomy in March 2021 complicated by recurrent pleural effusion now s/p chesttube placement on 02/08. He presented to the Emergency Department requesting evaluation of his dry seal atrium, as it has not been draining for 1 day prior to admission. Chest tube was placed to a regu lar atrium on water seal. He was unfortunately found to be in afib with RVR up to the 140s. Patientadmitted to cardiology. Thoracic surgery will continue to follow and manage chest tube while in house. Recommendations: 1. Continue chest tube to water seal, plan to remove as early as tomorrow since small air leak has resolved 2. Recommend am PA/ Lateral CXR tomorrow (~0500) 2. Thoracic surgery will continue to follow or chest tube management 3. Rest of care per primary team All plans formulated in discussion with and directed by attending thoracic surgeon Dr. Tanner. Bi Baez MD 02/18/2022 Thoracic Surgery Service Pager [phone] Associated attestation - Anthony Tanner MD - 02/23/2022 9:34 AM EST I have seen the patient in person and reviewed the resident's above history and I agree with the details as written. The assessment and plan were formulated in discussion with me and I agree with them as documented. Plan: Seen by me on morning rounds. Still undergoing evaluation by cardiology. No leak in the chesttubes. Awaiting decrease in output. Anthony Tanner MD Thoracic Surgery * Plan of Care - Jakob Hogan MD - 02/17/2022 5:54 PM EST Brief Plan of Care Note Mr. Faulkner is a pleasant 71yo M with history of atrial fibrillation on Xarelto, lung cancer s/p partial pneumonectomy and VATS with recurrent pleural effusions s/p left sided chest tube placement (discharged 02/10) who presented to the ED due to chest tube malfunction where he was incidentally found to be in atrial flutter at a rate of 140 bpm. He was given 3x 5mg IVP doses of lopressor without effect after which cardiology was consulted. A bedside echo performed by the ED resident (good acoustic windows) showed likely a depressed EF to 35%, though endocardium could not be well visualized on this machine. This raised concern for tachymyopathy iso rapid atrial flutter and implied the need for admission, rate/rhythm control, and formal echocardiogram. Notably, he is warm and well perfused without evidence of acute decompensation or volume overload. Recommendations for now: - Digoxin load - Low dose lopressor PO - Xarelto for AC - Formal TTE in AM - Perhaps reasonable to pursue HARSH DCCV + pharmacologic rhythm control strategy Jakob Hogan MD Clinical Specialty Rep [id number] * Consult Note - Lacy Rosario MD - 02/17/2022 1:25 PM EST [facility] Department of Surgery Inpatient Consult Note Consultation Requested by: Ramon Garcia MD History of Present Illness: Rajan Faulkner is a 71 y.o. male PMH afib on xarleto (last dose 02/16 PM), HTN, COPD, lung cancer s/p left upper lobectomy in March 2021 complicated by recurrent pleural effusion now s/p chest tube placement on 02/08. He presents to the Emergency Department requesting evaluation of his dry seal atrium, as it has not been draining since last night. Per the patient's wifeat bedside, the chest tube has been draining into the atrium, however she has been unable to empty the atrium through the syringe port today, causing backup of fluid into the atrium. The patient has had a persistent air leak since the chest tube was placed, he reports. The ED team changed patient to a regular atrium prior to thoracic surgery eval which showed no evidence of air leak even with provocative maneuvers. No rash, pain, swelling, or drainage from chest tube insertion site. Upon presentation to the ED the patient was found to be tachycardic to the 140s and in aflutter. The patient denies any complaint of chest pain, shortness of breath, palpitations; no recent fevers, chills, nausea, vomiting, abdominal pain. The patient take metoprolol and Xarelto for his history of paroxysmal atrial fibrillation, denies any missed doses recently. PMH/PSH: Past Medical History: Diagnosis Date ??? BPH (benign prostatic hyperplasia) ??? COPD (chronic obstructive pulmonary disease) ??? Coronary artery disease ??? GERD (gastroesophageal reflux disease) ??? Hypertension ??? Synovitis Past Surgical History: Procedure Laterality Date ??? APPENDECTOMY ??? IR THORACENTESIS LEFT 11/08/2021 IR Thoracentesis Left 11/08/2021 [address] MD [facility] INTERVENTIONL RAD ??? PRO BRONCHOSCOPY, DIAGNOSTIC N/A 03/29/2021 BRONCHOSCOPY, DIAGNOSTIC (WRVU 2.78) performed by Gilmer Foster MD at [facility] MAIN OR ??? PRO BRONCHOSCOPY, DIAGNOSTIC N/A 02/08/2022 BRONCHOSCOPY, DIAGNOSTIC (WRVU 2.78) performed by Gilmer Foster MD at [facility] MA[facility] OR ? ? PRO INJECTION ANES AGENT &/ STEROID INTERCOSTAL NERVE SINGLE LEVEL Left 03/29/2021 NERVE BLOCK, INTERCOSTAL NERVE (WRVU 1.18) performed by Gilmer Foster MD at [facility] MAIN OR ??? PRO THORACOSCOPY SURG LOBECTOMY Left 03/29/2021 @THORACOSCOPY,SURGICAL,W\LOBECTOMY,TOTAL OR SEGMENTAL (WRVU 24.64) performed by Johana Foster MD at [facility] MAIN OR ??? PRO THORACOSCOPY WITH BIOPSY OF PLEURA Left 02/08/2022 THORACOSCOPY; WITH BIOPSY(IES) OF PLEURA (WRVU 4.58) [facility] ??? PRO THORACOSCOPY WITH MEDIASTINAL AND REGIONAL LYMPHADENECTOMY 03/29/2021 @THORACOSCOPY, SURG; W/MEDIASTINAL& REGIONAL LYMPHADENECTOMY (WRVU 4.12) performed by Gilmer Foster MD at [facility] OR ??? PRO THORACOSCOPY WITH WEDGE RESECTION AND ANATOMIC LUNG RESECTN Left 03/29/2021 @THORACOSCOPY, SURG; W/DX WEDGE RESC W/ANATOMIC LUNG RESC (WRVU 3) performed by Johana Foster MD at [facility] OR Medications No current facility-administered medications on file prior to encounter. Current Outpatient Medications on File Prior to Encounter Medication Sig Dispense Refill ??? Spiriva Respimat 2.5 mcg/actuation Mist ??? acetaminophen (Tylenol) 500 mg Tablet Take 2 tablets by mouth every 6 hours. 30 tablet 1 ??? rivaroxaban (Xarelto) 20 mg Tablet Take 20 mg by mouth daily. ??? metoprolol succinate XL (Toprol-XL) 25 mg Tablet Sustained Release 24 hr Take 25 mg by mouth daily. ??? lisinopriL (Zestril) 10 mg Tablet Take 10 mg by mouth daily. ??? bupropion HCl [...] act w/sensor 4 times daily as needed. Allergies Allergies Allergen Reactions ??? Cat Dander Runny eyes and nose ??? Dog Dander Runny eyes and nose Family History: Family History Problem Relation Age of Onset ??? Myocardial Infarction Father Social History: Social History Socioeconomic History ??? Marital status: Spouse name: Not on file ??? Number of children: Not on file ??? Years of education: Not on file ??? Highest education level: Not on file Occupational History ??? Not on file Tobacco Use ??? Smoking status: Former Years: 50.00 Types: Cigarettes ??? Smokeless tobacco: Never ??? Tobacco comments: 1 ppd for the past year Vaping Use ??? Vaping Use: Never used Substance and Sexual Activity ??? Alcohol use: Not Currently ??? Drug use: Yes Types: Marijuana Comment: OCC ??? Sexual activity: Not Currently Other Topics Concern ??? Not on file Social History Narrative ??? Not on file Social Determinants of Health Financial Resource Strain: Not on file Food Insecurity: Not on file Transportation Needs: Not on file Physical Activity: Not on file Housing Stability: Not on file Review of Systems: As stated above, otherwise ten system review negative Physical Exam: Temp: [36.2 ??C (97.1 ??F)-37 ??C (98.6 ??F)] Heart Rate: [135-144] Resp: [13-30] BP: (94-125)/(63-100) SpO2: [96 %-100 %] Heart Rate from SpO2: [140 bpm-144 bpm] Gen: NAD, A0x3 CVS: Tachycardic, irregular rhythm Pulm: L lung with crackles and decreased sounds at L lung base, otherwise breathing comfortably on RA; L chest tube with no air leak, 30 cc serous drainage in new atrium, on waterseal GI: nontender; nondistended MSK: WWP, no edema Neuro: moving all 4 extremities spontaneously, nonfocal Data independently reviewed: Recent Results (from the past 24 hour(s)) Comprehensive metabolic panel (non-fasting) Result Value Ref Range Glucose Lvl 95 65 - 199 mg/dL BUN 16 10 - 20 mg/dL Creatinine 1.04 0.80 - 1.50 mg/dL Sodium 138 135 - 145 mmol/L Potassium 4.2 3.5 - 5.0 mmol/L Chloride 104 98 - 107 mmol/L CO2 23 22 - 31 mmol/L Anion Gap 11 5 - 15 mmol/L Calcium 9.6 8.5 - 10.5 mg/dL Total Protein 6.8 6.1 - 8.0 g/dL Albumin 3.5 3.2 - 5.2 g/dL AST 18 0 - 39 unit/L ALT 12 0 - 55 unit/L Alk Phos 67 40 - 130 unit/L Total Bilirubin 0.3 0.2 - 1.3 mg/dL Estimated GFR 76 >=60 mL/min/1.73 m?? Phosphorus Result Value Ref Range Phosphorus 2.8 2.5 - 4.5 mg/dL Magnesium Result Value Ref Range Magnesium 0.74 0.69 - 1.07 mmol/L Hemogram Result Value Ref Range WBC 10.2 (H) 4.0 - 9.5 x10(3)/mcL RBC 3.99 (L) 4.58 - 5.54 x10(6)/mcL Hemoglobin 11.0 (L) 13.7 - 16.5 g/dL Hematocrit 33.6 (L) 40.5 - 48.5 % MCV 84.2 82.9 - 93.1 fL MCH 27.6 27.5 - 32.1 pg MCHC 32.7 32.0 - 35.7 g/dL Platelets 314 145 - 357 x10(3)/mcL RDWSD 43.4 36.0 - 45.0 fL RDWCV 14.0 (H) 11.4 - 13.8 % MPV 9.2 7.6 - 12.9 fL nRBC % Auto 0.0 % nRBC Abs Auto 0.000 0.000 - 0.000 x10(3)/mcL Differential, Automated Result Value Ref Range Neutrophils % 74.6 % Neutr Abs (ANC) 7.60 (H) 1.70 - 6.10 x10(3)/mcL Lymphocytes % 13.6 % Lymphocytes Abs 1.4 0.9 - 3.2 x10(3)/mcL Monocytes % 10.8 % Monocyte Abs 1.1 (H) 0.3 - 0.9 x10(3)/mcL Eosinophils % 0.3 % Eosinophils Abs 0.0 0.0 - 0.4 x10(3)/mcL Basophils % 0.3 % Basophils Abs 0.0 0.0 - 0.1 x10(3)/mcL Immature Gran % 0.40 % [place] Gran Abs 0.04 0.00 - 0.04 x10(3)/mcL pro-Brain Natriuretic Peptide Result Value Ref Range ProBNP 3,033 (H) <=124 pg/mL TSH Result Value Ref Range TSH 1.36 0.27 - 4.20 mcIU/mL Imaging: CXR (02/17/22): 1. Left chest tube remains in position. 2. There is a small left pneumothorax which has diminished in size. 3. Moderate size left pleural effusion/hemothorax is not significantly changed. Impression: Rajan Faulkner is a 71 y.o. male PMH afib on xarleto (last dose 02/16 PM), HTN, COPD, lung cancer s/p left upper lobectomy in March 2021 complicated by recurrent pleural effusion now s/p chest tube placement on 02/08. He presents to the Emergency Department requesting evaluation of his dry seal atrium, as it has not been draining since last night. After changing to a new regular sized a trium patient had not issues with chest tube. He was unfortunately found to be in afib with RVR up to the 140s. He received x3 doses of 5 mg IV metop in the ED with transient response. Patient admitted to cardiology. Thoracic surgery will continue to follow and manage chest tube while in house. Agree with keeping chest tube to waterseal, will continue to monitor output for possibility of chest tube removal. Plan for PA/lateral CXR in AM. Plan discussed with thoracic surgery attending, Dr. Tanner. Thank you for this consult. If you have any questions, please page [phone]. [X] Consult service to continue to follow [] Consult service to sign off Lacy Rosario MD 02/18/2022 General Surgery [phone] Associated attestation - Anthony Tanner MD - 02/23/2022 9:33 AM EST I have seen the patient in person and reviewed the resident's above history and I agree with the details as written. The assessment and plan were formulated in discussion with me and I agree with them as documented. Pertinent History: 71y/o male presenting with a malfunctioning mini-atrium. Upon presentation he was found to be in afib with RVR. Pertinent Exam: Older gentleman in NAD. Breathing non-labored. Irregularly irregular. Chest tube inplace. Major issues addressed: Need for admission Plan: Will plan to admit to cardiology for work-up of his aflutter. Chest tube will go to a pleurovac for now. We appreciate the recommendations form our cardiology colleagues. Anthony Tanner MD Thoracic Surgery * ED Triage - Liseth Deshpande RN - 02/17/2022 12:54 PM EST Pt here for chest drain that has air leak and was told to come in for them to change out the drain.Pt denies pain, pt has red drainage in container. Pt tachy to 145 in triage. documented in this encounter Plan of Treatment Scheduled Procedures Name Priority Associated Diagnoses Date/Ti me ELECTROPHYSIOLOGY PROCEDURE Persistent atrial fibrillation CARDIOVERSION-ELECTIVE (WRVU 2) persistent atrial fibrillation TRANSESOPHAGEAL ECHOCARDIOGR AM (WRVU 2.3) persistent atrial fibrillation Scheduled Referrals Name Type Priority Associated Diagnoses Orde r Schedule Referral to Home Health Outpatient Referral Routine Mass of upper lobe of left lung Ordered: 02/19/2022 documented as of this encounter Procedures Procedure Name Priority Date/Time Associated Diagnosis Comments EKG 12-LEAD Routine 02/21/2022 6:21 AM EST Atrial flutter HC VENIPUNCTURE Routine 02/21/2022 3:56 AM EST SCAN, PERIPHERAL BLOOD Routine 3:56 AM EST HEMOGRAM Routine 02/21/2022 3:56 AM EST DIFFERENTIAL, AUTOMATED Routine 02/22/20 3:56 AM EST HC CBC,PLT & AUTO DIFF Routine 3:56 AM EST HC MAGNESIUM, SERUM Routine 02/21/2022 3 :56 AM EST EKG 12-LEAD Routine 02/20/2022 7:59 AM EST Atrial flutter XR CHEST PA AND LATERAL Timed 02/21/20 6:14 AM EST HC VENIPUNCTURE Routine 02/20/2022 4:29 AM EST HEMOGRAM Routine 02/20/2022 4:29 AM EST DIFFERENTIAL, AUTOMATED Routine 02/21/20 4:29 AM EST HC CBC,PLT & AUTO DIFF Routine 4:29 AM EST HC MAGNESIUM, SERUM Routine 02/20/2022 4 :29 AM EST HC UNFRACTIONATED HEPARIN (HEP UFH) Timed 02/19/2022 12:35 PM EST EKG 12-LEAD Routine 02/19/2022 10:55 AM EST Atrial flutter EKG 12-LEAD Routine 02/19/2022 9:38 AM EST Atrial flutter EKG 12-LEAD STAT 02/19/2022 6:14 AM EST Atrial flutter XR CHEST PA AND LATERAL Routine 02/20/20 4:53 AM EST HC UNFRACTIONATED HEPARIN (HEP UFH) Routine 02/19/2022 4:01 AM EST HC VENIPUNCTURE Routine 02/19/2022 4:01 AM EST HEMOGRAM Routine 02/19/2022 4:01 AM EST DIFFERENTIAL, AUTOMATED Routine 02/20/20 4:01 AM EST HC CBC,PLT & AUTO DIFF Routine 4:01 AM EST HC MAGNESIUM, SERUM Routine 02/19/2022 4 :01 AM EST HEPATIC FUNCTION PANEL Routine 4:01 AM EST EKG 12-LEAD STAT 02/19/2022 1:17 AM EST Atrial flutter HC VENIPUNCTURE Timed 02/18/2022 7:08 PM EST HC UNFRACTIONATED HEPARIN (HEP UFH) Timed 02/18/2022 11:26 AM EST ECHO COMPLETE W CONTRAST Routine 02/18/2022 10:31 AM EST Atrial flutter EKG 12-LEAD Routine 02/18/2022 6:25 AM EST Atrial flutter XR CHEST PA AND LATERAL STAT 02/19/20 6:15 AM EST HC VENIPUNCTURE Timed 02/18/2022 4:13 AM EST BMP W/FASTING GLUCOSE Routine 02/18/2022 4:13 AM EST HEMOGRAM Routine 02/18/2022 4:13 AM EST DIFFERENTIAL, AUTOMATED Routine 02/19/20 4:13 AM EST HC CBC,PLT & AUTO DIFF Routine 2 4:13 AM EST HC MAGNESIUM, SERUM Routine 02/18/2022 4 :13 AM EST US CARDIAC (SYNC) Routine 02/17/2022 4:5 1 PM EST XR CHEST PA AND LATERAL STAT 02/18/20 2:05 PM EST HEMOGRAM STAT 02/17/2022 1:50 PM EST DIFFERENTIAL, AUTOMATED STAT 02/18/20 1:50 PM EST HC CBC,PLT & AUTO DIFF STAT 2 1:50 PM EST TSH STAT 02/17/2022 1:50 PM EST HC PHOSPHORUS, SERUM STAT 02/17/2022 1:50 PM EST PRO-BRAIN NATRIURETIC PEPTIDE STAT 02/17/2022 1:50 PM EST HC MAGNESIUM, SERUM STAT 02/17/2022 1 :50 PM EST COMPREHENSIVE METABOLIC PANEL STAT 02/17/2022 1:50 PM EST EKG 12-LEAD STAT 02/17/2022 1:18 PM EST documented in this encounter Results * EKG 12 Lead (02/21/2022 6:21 AM EST) Ventricular rate 124 BPM MUSE SYSTEM Atrial Rate 248 BPM MUSE SYSTEM QRS Duration 104 ms MUSE SYSTEM Q-T Interval 340 ms MUSE SYSTEM QTC Calculated (Bezet) 488 ms MUSE SYSTEM Calculated P [place] 131 degrees MUSE SYSTEM Calculated R [place] 71 degrees MUSE SYSTEM Calculated T [place] -83 degrees MUSE SYSTEM INTERPRETATION Atrial flutter with 2:1 A-V conduction Minimal voltage criteria for LVH, may be normal variant ( Pryor product ) Nonspecific ST abnormality Abnormal ECG When compared with ECG of 20-FEB-2022 07:59, (unconfirmed) No significant change was found I personally reviewed the tracing and edited the fellows interpretation Confirmed by fellow Rudi Guzmán ([id number]) on 02/22/2022 7:13:33 AM Confirmed by MD Rojas David ([id number]) on 02/24/2022 4:32:44 PM MUSE SYSTEM 02/21/2022 6:21 AM EST 02/24/2022 4:32 PM EST Sarah Barnes MD ECG ORDERABLES MUSE SYSTEM * Scan, Peripheral Blood (02/21/2022 3:56 AM EST) Pathologist [facility] Plat estimate Normal [facility] RBC Morphology Abnormal [facility] Ovalocytes 1-5 /HPF [facility] Blood 02/21/2022 3:56 AM EST 02/21/2022 4:30 AM EST Narrative Resulting Agency Comment Spec In Lab Sarah Barnes MD HEMATOLOGY ORDERABLE S Performing Organization Address City/[facility]/ZIP Co de Phone Number [facility] [place] [address] * (ABNORMAL) Differential, Automated (02/21/2022 3:56 AM EST) Neutrophil % 73.9 % [facility] Neutrophil Absolute 9.07(H) 1.70 - 6.10 x10(3)/mc L [facility] Lymph % 12.0 % [facility] Lymphocytes Abs 1.5 0.9 - 3.2 x10(3)/mc L [facility] Monocyte % 13.1 % [facility] Monocyte Abs 1.6(H) 0.3 - 0.9 x10(3)/mc L [facility] Eos % 0.2 % [facility] Eosinophils Abs 0.0 0.0 - 0.4 x10(3)/mc L [facility] Basophil % 0.3 % [facility] Baso Absolute 0.0 0.0 - 0.1 x10(3)/mc L [facility] Immature Gran % 0.50 % [facility] Comment: Immature granulocytes(IG's)percentage and absolute count will include metamyelocytes, myelocytes, and promyelocytes. Blood smears from CBCs yielding IG's will be scanned manually for concordance. If this scan disagrees with the automated IG or if promyelocytes are noted, a manual differential will be performed. Immature Gran Absolute 0.06(H) 0.00 - 0.04 x10(3)/mc L [facility] Blood 02/21/2022 3:56 AM EST 02/21/2022 4:30 AM EST Narrative Resulting Agency Comment Spec In Lab Sarah Barnes MD HEMATOLOGY ORDERABLE S Performing Organization Address City/State/[facility] Co de Phone Number [facility] [place] [address] * (ABNORMAL) Hemogram (02/21/2022 3:56 AM EST) White Blood Cell 12.3(H) 4.0 - 9.5 x10(3)/mc L [facility] Red Blood Cell 3.59(L) 4.58 - 5.54 x10(6)/mc L [facility] Hemoglobin 10.0(L) 13.7 - 16.5 g/dL [facility] Hematocrit 30.2(L) 40.5 - 48.5 % [facility] Mean Cell Volume 84.1 82.9 - 93.1 fL [facility] Mean Cell Hemoglobin 27.9 27.5 - 32.1 pg [facility] Mean Cell Hemoglobin Concentration 33.1 32.0 - 35.7 g/dL [facility] Platelet 310 145 - 357 x10(3)/mc L [facility] RDW Standard Deviation 43.2 36.0 - 45.0 fL [facility] RDW coefficient of variation 13.9(H) 11.4 - 13.8 % [facility] Mean Platelet Volume 9.2 7.6 - 12.[address] [facility] NRBC% auto 0.0 % [facility] NRBC Absolute 0.000 0.000 - 0.000 x10(3)/mc L [facility] Blood 02/21/2022 3:56 AM EST 02/21/2022 4:30 AM EST Narrative Resulting Agency Comment Spec In Lab Sarah Barnes MD HEMATOLOGY ORDERABLE S Performing Organization Address [facility] Co de Phone Number [facility] [place] [address] * Magnesium (02/21/2022 3:56 AM EST) Magnesium 0.85 0.69 - 1.07 mmol/L [facility] Blood 02/21/2022 3:56 AM EST 02/21/2022 4:30 AM EST Narrative Resulting Agency Comment Spec In Lab Sarah Barnes MD CHEMISTRY ORDERABLES Performing Organization Address [facility] de Phone Number [facility] [place] [address] * (ABNORMAL) BMP w/fasting Glucose (02/21/2022 3:56 AM EST) Glucose Fasting 110(H) 65 - 99 mg/dL [facility] Comment: ?Fasting* Glucose Interpretive Criteria Normal ?65-99 mg/dL Impaired Fasting glucose ?100-125 mg/dL Consistent with Diabetes Mellitus ? >or= 126 mg/dL *Fasting is defined as no caloric intake for at least 8 hours In the absence of unequivocal hyperglycemia a plasma glucose value of >or= 126 mg/dL should be repeated on a subsequent day. Diagnosis and Classification of Diabetes Mellitus, Position Statement from the [place] [employer]. ??Diabetes Care, Volume 33, Supplement 1, Mar 2009 Blood Urea Nitrogen 16 10 - 20 mg/dL [facility] Creatinine 1.04 0.80 - 1.50 mg/dL [facility] Sodium 135 135 - 145 mmol/L [facility] Potassium 4.0 3.5 - 5.0 mmol/L [facility] Comment: Please note: ??Patients with WBC >100,000 may have falsely elevated Potassium levels. ??For accurate Potassium quantification in these patients send serum separator tube (gold top) for subsequent determinations. ??Contact the Clinical Chemistry Laboratory if there are any questions. Chloride 101 98 - 107 mmol/L [facility] Carbon Dioxide 24 22 - 31 mmol/L [facility] Anion Gap 10 5 - 15 mmol/L [facility] Calcium 8.9 8.5 - 10.5 mg/dL [facility] Est Glomerular Filtration Rate 76 >=60 mL/min/1. 73 m?? [facility] Comment: This patient's estimated GFR was [...] and symptoms in addition to eGFR. Blood 02/21/2022 3:56 AM EST 02/21/2022 4:30 AM EST Narrative Resulting Agency Comment Spec In Lab Sarah Barnes MD CHEMISTRY ORDERABLES Performing Organization Address City/State/[facility] Co de Phone Number [facility] [place] [address] * EKG 12 Lead (02/20/2022 7:59 AM EST) Ventricular rate 140 BPM MUSE SYSTEM Atrial Rate 140 BPM MUSE SYSTEM P-R Interval 176 ms MUSE SYSTEM QRS Duration 98 ms MUSE SYSTEM Q-T Interval 328 ms MUSE SYSTEM QTC Calculated (Bezet) 500 ms MUSE SYSTEM Calculated R [place] 93 degrees MUSE SYSTEM Calculated T [place] -81 degrees MUSE SYSTEM INTERPRETATION Atrial flutter with 2:1 A-V conduction Left posterior fascicular block Minimal voltage criteria for LVH, may be normal variant ( Pryor product ) Abnormal ECG When compared with ECG of 19-FEB-2022 10:55, Atrial flutter has replaced Atrial fibrillation I personally reviewed the tracing and edited the fellows interpretation Confirmed by fellow Rudi Guzmán ([id number]) on 02/20/2022 4:12:13 PM Confirmed by Cindy Walker ([id number]) on 02/21/2022 7:41:04 AM MUSE SYSTEM 02/20/2022 7:59 AM EST 02/21/2022 7:41 AM EST Ramon Garcia MD ECG ORDERABLES MUSE SYSTEM * XR Chest PA & Lateral (Generic) (02/20/2022 6:14 AM EST) Anatomical Region Laterality Modality Chest N/A Digital Radiogra phy Impressions 02/20/2022 8:52 AM EST 1. ??Redemonstration of left-sided hydropneumothorax with increased small quantity of layering fluid and unchanged small air component. 2. ??Additional unchanged loculated [id number] left pleural effusion. 3. ??Unchanged left lung atelectasis. Thank you for letting us participate in the care of this patient. ??If you are a health care provider and have any questions regarding this report, please contact the number below. ??For patients who have questions please contact the health rn acute care that requested your imaging first. ? Narrative 02/20/2022 8:52 AM EST EXAMINATION: XR CHEST PA AND LATERAL (GENERIC) CLINICAL HISTORY: s/p chest tube removal TECHNIQUE: PA and lateral views of the chest, 2 images COMPARISON: Chest radiograph 02/19/2022 FINDINGS: Status post removal of left-sided chest tube. EKG leads project over the thorax. No focal consolidation in the right lung. Unchanged reticular hazy opacities throughout the left lung. Redemonstration of the hydropneumothorax at the left lung apex with increased fluid component compared to the prior exam with unchanged small air component. Additional unchanged superimposed small to moderate left pleural effusion with basilar and lateral components. Normal size of the cardiomediastinal silhouette and bilateral edy. There is calcification of the aortic arch. Subacute left lateral rib fractures. Procedure Note Yosef Earl MD - 02/20/2022 EXAMINATION: XR CHEST PA AND LATERAL (GENERIC) CLINICAL HISTORY: s/p chest tube removal TECHNIQUE: PA and lateral views of the chest, 2 images COMPARISON: Chest radiograph 02/19/2022 FINDINGS: Status post removal of left-sided chest tube. EKG leads project over the thorax. No focal consolidation in the right lung. Unchanged reticular hazyopacities throughout the left lung. Redemonstration of the hydropneumothorax at theleft lung apex with increased fluid component compared to the prior exam with unchanged small air component. Additional unchanged superimposed smallto moderate left pleural effusion with basilar and lateral components. Normalsize of the cardiomediastinal silhouette and bilateral edy. There iscalcification of the aortic arch. Subacute left lateral rib fractures. IMPRESSION 1. Redemonstration of left-sided hydropneumothorax with increased small quantity of layering fluid and unchanged small air component. 2. Additional unchanged loculated [id number] left pleuraleffusion. 3. Unchanged left lung atelectasis. Thank you for letting us participate in the care of this patient. If youare a health care provider and have any questions regarding this report,please contact the number below. For patients who have questions please contactthe health rn acute care that requested your imaging first. Ramon Garcia MD IMG DX ORDERABLES * (ABNORMAL) Differential, Automated (02/20/2022 4:29 AM EST) Neutrophil % 71.7 % [facility] Neutrophil Absolute 7.04(H) 1.70 - 6.10 x10(3)/ L [facility] Lymph % 15.7 % [facility] Lymphocytes Abs 1.5 0.9 - 3.2 x10(3)/ L [facility] Monocyte % 11.9 % [facility] Monocyte Abs 1.2(H) 0.3 - 0.9 x10(3)/[facility] Eos % 0.2 % [facility] Eosinophils Abs 0.0 0.0 - 0.4 x10(3)/[facility] Basophil % 0.3 % [facility] Baso Absolute 0.0 0.0 - 0.1 x10(3)/[facility] Immature Gran % 0.20 % [facility] Comment: Immature granulocytes(IG's)percentage and absolute count will include metamyelocytes, myelocytes, and promyelocytes. Blood smears from CBCs yielding IG's will be scanned manually for concordance. If this scan disagrees with the automated IG or if promyelocytes are noted, a manual differential will be performed. Immature Gran Absolute 0.02 0.00 - 0.04 x10(3)/[facility] Blood 02/20/2022 4:29 AM EST 02/20/2022 4:47 AM EST Narrative Resulting Agency Comment Spec In Lab Sarah Barnes MD HEMATOLOGY ORDERABLE S [facility] [place] [address] * (ABNORMAL) Hemogram (02/20/2022 4:29 AM EST) White Blood Cell 9.8(H) 4.0 - 9.5 x10(3)/[facility] Red Blood Cell 3.80(L) 4.58 - 5.54 x10(6)/[facility] Hemoglobin 10.6(L) 13.7 - 16.5 g/dL [facility] Hematocrit 31.6(L) 40.5 - 48.5 % [facility] Mean Cell Volume 83.2 82.9 - 93.[address] [facility] Mean Cell Hemoglobin 27.9 27.5 - 32.1 pg [facility] Mean Cell Hemoglobin Concentration 33.5 32.0 - 35.7 g/dL [facility] Platelet 295 145 - 357 x10(3)/mc L [facility] RDW Standard Deviation 42.9 36.0 - 45.0 fL [facility] RDW coefficient of variation 14.0(H) 11.4 - 13.8 % [facility] Mean Platelet Volume 9.2 7.6 - 12.[address] [facility] NRBC% auto 0.0 % [facility] NRBC Absolute 0.000 0.000 - 0.000 x10(3)/ L [facility] Blood 02/20/2022 4:29 AM EST 02/20/2022 4:47 AM EST Narrative Resulting Agency Comment Spec In Lab Sarah Barnes MD HEMATOLOGY ORDERABLE S Performing Organization Address [facility] Co de Phone Number [facility] [place] [address] * Magnesium (02/20/2022 4:29 AM EST) Magnesium 0.87 0.69 - 1.07 mmol/L [facility] Blood 02/20/2022 4:29 AM EST 02/20/2022 4:47 AM EST Narrative Resulting Agency Comment Spec In Lab Sarah Barnes MD CHEMISTRY ORDERABLES Performing Organization Address [facility] de Phone Number [facility] [place] [address] * (ABNORMAL) BMP w/fasting Glucose (02/20/2022 4:29 AM EST) Glucose Fasting 108(H) 65 - 99 mg/dL [facility] Comment: ?Fasting* Glucose Interpretive Criteria Normal ?65-99 mg/dL Impaired Fasting glucose ?100-125 mg/dL Consistent with Diabetes Mellitus ? >or= 126 mg/dL *Fasting is defined as no caloric intake for at least 8 hours In the absence of unequivocal hyperglycemia a plasma glucose value of >or= 126 mg/dL should be repeated on a subsequent day. Diagnosis and Classification of Diabetes Mellitus, Position Statement from the [place] [employer]. ??Diabetes Care, Volume 33, Supplement 1, Mar 2009 Blood Urea Nitrogen 20 10 - 20 mg/dL [facility] Creatinine 1.01 0.80 - 1.50 mg/dL [facility] Sodium 137 135 - 145 mmol/L [facility] Potassium 3.9 3.5 - 5.0 mmol/L [facility] Comment: Please note: ??Patients with WBC >100,000 may have falsely elevated Potassium levels. ??For accurate Potassium quantification in these patients send serum separator tube (gold top) for subsequent determinations. ??Contact the Clinical Chemistry Laboratory if there are any questions. Chloride 103 98 - 107 mmol/L [facility] Carbon Dioxide 23 22 - 31 mmol/L [facility] Anion Gap 11 5 - 15 mmol/L [facility] Calcium 8.7 8.5 - 10.5 mg/dL [facility] Est Glomerular Filtration Rate 79 >=60 mL/min/1. 73 m?? [facility] Comment: This patient's estimated GFR was [...] and symptoms in addition to eGFR. Blood 02/20/2022 4:29 AM EST 02/20/2022 4:47 AM EST Narrative Resulting Agency Comment Spec In Lab Sarah Barnes MD CHEMISTRY ORDERABLES Performing Organization Address City/[facility] Co de Phone Number [facility] [place] [address] * Heparin (unfractionated) Level (02/19/2022 12:35 PM EST) Pathologist [facility] UF Heparin 0.22 IU/mL [facility] Comment: Heparin (anti-Xa) levels should be determined in a plasma sample that has been drawn 6 hours after a dose change to approximate steady-state for continuous heparin infusions. Indication specific Heparin (anti-Xa) levels based on order set selection: Acute DVT or PE treatment: 0.3 ? 0.7 IU/mL Thrombosis Prevention (eg. atrial fibrillation, yvonne-procedural bridging, mechanical valves): 0.3 ? 0.7 IU/mL Acute Coronary Syndrome: 0.3 ? 0.7 IU/mL Stroke Indications: 0.3 ? 0.5 IU/mL Ultra-low intensity (select indications in cardiac surgery): 0.1 ? 0.3 IU/mL Blood 02/19/2022 12:3 5 PM EST 02/19/2022 12:56 PM EST Narrative Resulting Agency Comment Spec In Lab Ramon Garcia MD HEMATOLOGY ORDERABLE S Performing Organization Address [facility] Co de Phone Number [facility] [place] [address] * EKG 12 Lead (02/19/2022 10:55 AM EST) Pathologist [facility] Ventricular rate 121 BPM MUSE SYSTEM QRS Duration 108 ms MUSE SYSTEM Q-T Interval 326 ms MUSE SYSTEM QTC Calculated (Bezet) 462 ms MUSE SYSTEM Calculated R [place] 78 degrees MUSE SYSTEM Calculated T [place] -112 degrees MUSE SYSTEM INTERPRETATION Atrial fibrillation with rapid ventricular response Minimal voltage criteria for LVH, may be normal variant ( Pryor product ) Nonspecific T wave abnormality Abnormal ECG When compared with ECG of 19-FEB-2022 09:38, (unconfirmed) Atrial fibrillation has replaced Sinus rhythm Vent. rate has increased BY ??43 BPM Nonspecific T wave abnormality now evident in Inferior leads Nonspecific T wave abnormality has replaced inverted T waves in Anterior leads Confirmed by MD Aric, Emre ([id number]) on 02/19/2022 2:57:08 PM MUSE SYSTEM 02/19/2022 10:5 5 AM EST 02/19/2022 2:57 PM EST Ramon Garcia MD ECG ORDERABLES Performing Organization Address [facility] Phone Number MUSE SYSTEM * EKG 12 Lead (02/19/2022 9:38 AM EST) Ventricular rate 78 BPM MUSE SYSTEM QRS Duration 98 ms MUSE SYSTEM Q-T Interval 382 ms MUSE SYSTEM QTC Calculated (Bezet) 435 ms MUSE SYSTEM Calculated R [place] 90 degrees MUSE SYSTEM Calculated T [place] 72 degrees MUSE SYSTEM INTERPRETATION Likely Normal sinus rhythm with frequent Premature atrial complexes Rightward axis Abnormal ECG When compared with ECG of 19-FEB-2022 06:14, (unconfirmed ) Patient is now in sinus rhythm Vent. rate has decreased BY ??66 BPM T wave inversion now evident in Anterior leads Confirmed by fellow MD Nielsen Daniel ([id number]) on 02/19/2022 10:47:28 AM Confirmed by MD Corbett Eric ([id number]) on 02/20/2022 9:04:52 AM MUSE SYSTEM 02/19/2022 9:38 AM EST 02/20/2022 9:04 AM EST Sarah Barnes MD ECG ORDERABLES Performing Organization Address [facility] de Phone Number MUSE SYSTEM * EKG 12 Lead (02/19/2022 6:14 AM EST) Ventricular rate 144 BPM MUSE SYSTEM Atrial Rate 300 BPM MUSE SYSTEM QRS Duration 90 ms MUSE SYSTEM Q-T Interval 332 ms MUSE SYSTEM QTC Calculated (Bezet) 514 ms MUSE SYSTEM Calculated R [place] 71 degrees MUSE SYSTEM Calculated T [place] -130 degrees MUSE SYSTEM INTERPRETATION Atrial flutter with variable A-V block Minimal voltage criteria for LVH, may be normal variant ( Pryor product ) Abnormal ECG When compared with ECG of 19-FEB-2022 01:17, (unconfirmed) No significant change was found Confirmed by fellow MD Nielsen Daniel ([id number]) on 02/19/2022 10:45:05 AM Confirmed by MD Corbett Eric ([id number]) on 02/20/2022 9:04:43 AM MUSE SYSTEM 02/19/2022 6:14 AM EST 02/20/2022 9:04 AM EST Ramon Garcia MD ECG ORDERABLES MUSE SYSTEM * XR Chest PA & Lateral (Generic) (02/19/2022 4:53 AM EST) Anatomical Region Laterality Modality Chest N/A Digital Radiogra phy Impressions 02/19/2022 6:55 AM EST Stable examination with unchanged size of the left hydropneumothorax. Thank you for letting us participate in the care of this patient. ??If you are a health care provider and have any questions regarding this report, please contact the number below. ??For patients who have questions please contact the health rn acute care that requested your imaging first. ? Narrative 02/19/2022 6:55 AM EST EXAMINATION: XR CHEST PA AND LATERAL (GENERIC) CLINICAL HISTORY: Left sided chest tube in place. TECHNIQUE: PA and lateral views of the chest COMPARISON: Chest x-ray, February 18, 2022 FINDINGS: The apically direct a left chest tube has tip in unchanged position. Stable left hydropneumothorax, with no appreciable interval change in the air or fluid volume in the left hemithorax. Similar degree left lung volume loss with patchy subsegmental and dependent opacities as before. Right lung remains clear. Cardiac mediastinal silhouette is stable. No interval osseous changes. Procedure Note Sheeba Woods MD - 02/19/2022 EXAMINATION: XR CHEST PA AND LATERAL (GENERIC) CLINICAL HISTORY: Left sided chest tube in place. TECHNIQUE: PA and lateral views of the chest COMPARISON: Chest x-ray, February 18, 2022 FINDINGS: The apically direct a left chest tube has tip in unchanged position.Stable left hydropneumothorax, with no appreciable interval change in the air orfluid volume in the left hemithorax. Similar degree left lung volume loss withpatchy subsegmental and dependent opacities as before. Right lung remainsclear. Cardiac mediastinal silhouette is stable. No interval osseous changes. IMPRESSION Stable examination with unchanged size of the left hydropneumothorax. Thank you for letting us participate in the care of this patient. If youare a health care provider and have any questions regarding this report,please contact the number below. For patients who have questions please contactthe health rn acute care that requested your imaging first. Ramon Garcia MD IMG DX ORDERABLES * Hepatic Function Panel (02/19/2022 4:01 AM EST) Protein, Total 6.7 6.1 - 8.0 g/dL [facility] Albumin 3.3 3.2 - 5.2 g/dL [facility] Aspartate Aminotransferase Not Perf 0 - 39 [facility] Comment: Called by: MM, Read back by: Naomie Monteiro, Date/Time:02/19/22 11:59. Unable to quantitate due to sample hemolysis. ??Sample redraw suggested. Alanine Aminotransferase 13 0 - 55 unit/L [facility] Alkaline Phosphatase 72 40 - 130 unit/L [facility] Bilirubin, Total 0.4 0.2 - 1.3 mg/dL [facility] Bilirubin, Direct 0.1 0.0 - 0.3 mg/dL [facility] Blood Venous Draw / Unknown 02/19/2022 4:01 AM EST 02/19/2022 5:01 AM EST Narrative Resulting Agency Comment Spec In Lab Rosalie WILSON CHEMISTRY ORDER [place] [facility] [place] [address] * (ABNORMAL) Differential, Automated (02/19/2022 4:01 AM EST) Neutrophil % 70.0 % [facility] Neutrophil Absolute 7.63(H) 1.70 - 6.10 x10(3)/mc L [facility] Lymph % 17.6 % [facility] Lymphocytes Abs 1.9 0.9 - 3.2 x10(3)/mc L [facility] Monocyte % 11.2 % [facility] Monocyte Abs 1.2(H) 0.3 - 0.9 x10(3)/ L [facility] Eos % 0.4 % [facility] Eosinophils Abs 0.0 0.0 - 0.4 x10(3)/ L [facility] Basophil % 0.4 % [facility] Baso Absolute 0.0 0.0 - 0.1 x10(3)/ L [facility] Immature Gran % 0.40 % [facility] Comment: Immature granulocytes(IG's)percentage and absolute count will include metamyelocytes, myelocytes, and promyelocytes. Blood smears from CBCs yielding IG's will be scanned manually for concordance. If this scan disagrees with the automated IG or if promyelocytes are noted, a manual differential will be performed. Immature Gran Absolute 0.04 0.00 - 0.04 x10(3)/ L [facility] Blood 02/19/2022 4:01 AM EST 02/19/2022 5:00 AM EST Narrative Resulting Agency Comment Spec In Lab Sarah Barnes MD HEMATOLOGY ORDERABLE S Performing Organization Address City/[facility]/[place] [address] * (ABNORMAL) Hemogram (02/19/2022 4:01 AM EST) White Blood Cell 10.9(H) 4.0 - 9.5 x10(3)/mc L [facility] Red Blood Cell 4.19(L) 4.58 - 5.54 x10(6)/mc L [facility] Hemoglobin 11.7(L) 13.7 - 16.5 g/dL [facility] Hematocrit 35.4(L) 40.5 - 48.5 % [facility] Mean Cell Volume 84.5 82.9 - 93.1 fL [facility] Mean Cell Hemoglobin 27.9 27.5 - 32.1 pg [facility] Mean Cell Hemoglobin Concentration 33.1 32.0 - 35.7 g/dL [facility] Platelet 279 145 - 357 x10(3)/mc L [facility] RDW Standard Deviation 43.1 36.0 - 45.0 fL [facility] RDW coefficient of variation 14.0(H) 11.4 - 13.8 % [facility] Mean Platelet Volume 10.1 7.6 - 12.9 fL [facility] NRBC% auto 0.0 % [facility] NRBC Absolute 0.000 0.000 - 0.000 x10(3)/ L [facility] Blood 02/19/2022 4:01 AM EST 02/19/2022 5:00 AM EST Narrative Resulting Agency Comment Spec In Lab Sarah Barnes MD HEMATOLOGY ORDERABLE S Performing Organization Address City/State/[facility] Co de Phone Number [facility] [place] [address] * Heparin (unfractionated) Level (02/19/2022 4:01 AM EST) UF Heparin 0.19 IU/mL [facility] Comment: Specimen drawn more than one hour prior to testing. Results may not be reliable for heparin monitoring. Result may be falsely low. Heparin (anti-Xa) levels should be determined in a plasma sample that has been drawn 6 hours after a dose change to approximate steady-state for continuous heparin infusions. Indication specific Heparin (anti-Xa) levels based on order set selection: Acute DVT or PE treatment: 0.3 ? 0.7 IU/mL Thrombosis Prevention (eg. atrial fibrillation, yvonne-procedural bridging, mechanical valves): 0.3 ? 0.7 IU/mL Acute Coronary Syndrome: 0.3 ? 0.7 IU/mL Stroke Indications: 0.3 ? 0.5 IU/mL Ultra-low intensity (select indications in cardiac surgery): 0.1 ? 0.3 IU/mL Blood 02/19/2022 4:01 AM EST 02/19/2022 5:00 AM EST Narrative Resulting Agency Comment Spec In Lab Sarah Barnes MD HEMATOLOGY ORDERABLE S Performing Organization Address [facility] de Phone Number [facility] [place] [address] * Magnesium (02/19/2022 4:01 AM EST) Magnesium 0.82 0.69 - 1.07 mmol/L [facility] Blood 02/19/2022 4:01 AM EST 02/19/2022 5:00 AM EST Narrative Resulting Agency Comment Spec In Lab Sarah Barnes MD CHEMISTRY ORDERABLES Performing Organization Address [facility] de Phone Number [facility] [place] [address] * BMP w/fasting Glucose (02/19/2022 4:01 AM EST) Glucose Fasting 96 65 - 99 mg/dL [facility] Comment: ?Fasting* Glucose Interpretive Criteria Normal ?65-99 mg/dL Impaired Fasting glucose ?100-125 mg/dL Consistent with Diabetes Mellitus ? >or= 126 mg/dL *Fasting is defined as no caloric intake for at least 8 hours In the absence of unequivocal hyperglycemia a plasma glucose value of >or= 126 mg/dL should be repeated on a subsequent day. Diagnosis and Classification of Diabetes Mellitus, Position Statement from the [place] [employer]. ??Diabetes Care, Volume 33, Supplement 1, Mar 2009 Blood Urea Nitrogen 19 10 - 20 mg/dL [facility] Creatinine 1.07 0.80 - 1.50 mg/dL [facility] Sodium 137 135 - 145 mmol/L [facility] Potassium 4.3 3.5 - 5.0 mmol/L [facility] Comment: Please note: ??Patients with WBC >100,000 may have falsely elevated Potassium levels. ??For accurate Potassium quantification in these patients send serum separator tube (gold top) for subsequent determinations. ??Contact the Clinical Chemistry Laboratory if there are any questions. Chloride 101 98 - 107 mmol/L [facility] Carbon Dioxide 23 22 - 31 mmol/L [facility] Anion Gap 13 5 - 15 mmol/L [facility] Calcium 9.4 8.5 - 10.5 mg/dL [facility] Est Glomerular Filtration Rate 74 >=60 mL/min/1. 73 m?? [facility] Comment: This patient's estimated GFR was [...] and symptoms in addition to eGFR. Blood 02/19/2022 4:01 AM EST 02/19/2022 5:01 AM EST Narrative Resulting Agency Comment Spec In Lab Sarah Barnes MD CHEMISTRY ORDERABLES [facility] [place] [address] * EKG 12 Lead (02/19/2022 1:17 AM EST) Ventricular rate 137 BPM MUSE SYSTEM Atrial Rate 300 BPM MUSE SYSTEM QRS Duration 96 ms MUSE SYSTEM Q-T Interval 260 ms MUSE SYSTEM QTC Calculated (Bezet) 392 ms MUSE SYSTEM Calculated P [place] 116 degrees MUSE SYSTEM Calculated R [place] 83 degrees MUSE SYSTEM Calculated T [place] -124 degrees MUSE SYSTEM INTERPRETATION Atrial flutter with variable A-V block Nonspecific ST and T wave abnormality Abnormal ECG When compared with ECG of 18-FEB-2022 06:25, No significant change was found Confirmed by fellow MD Nielsen Daniel ([id number]) on 02/19/2022 10:44:39 AM Confirmed by MD Aric, Emre ([id number]) on 02/20/2022 9:04:38 AM MUSE SYSTEM 02/19/2022 1:17 AM EST 02/20/2022 9:04 AM EST Sarah Barnes MD ECG ORDERABLES Performing Organization Address City/[facility]/ZIP Co de Phone Number MUSE SYSTEM * Heparin (unfractionated) Level (02/18/2022 7:08 PM EST) UF Heparin 0.06 IU/mL [facility] Comment: Heparin (anti-Xa) levels should be determined in a plasma sample that has been drawn 6 hours after a dose change to approximate steady-state for continuous heparin infusions. Indication specific Heparin (anti-Xa) levels based on order set selection: Acute DVT or PE treatment: 0.3 ? 0.7 IU/mL Thrombosis Prevention (eg. atrial fibrillation, yvonne-procedural bridging, mechanical valves): 0.3 ? 0.7 IU/mL Acute Coronary Syndrome: 0.3 ? 0.7 IU/mL Stroke Indications: 0.3 ? 0.5 IU/mL Ultra-low intensity (select indications in cardiac surgery): 0.1 ? 0.3 IU/mL Blood 02/18/2022 7:08 PM EST 02/18/2022 7:19 PM EST Narrative Resulting Agency Comment Spec In Lab Ramon Garcia MD HEMATOLOGY ORDERABLE S Performing Organization Address City/[facility]/ZIP Co de Phone Number [facility] [place] [address] * Heparin (unfractionated) Level (02/18/2022 11:26 AM EST) UF Heparin 0.16 IU/mL [facility] Comment: Heparin (anti-Xa) levels should be determined in a plasma sample that has been drawn 6 hours after a dose change to approximate steady-state for continuous heparin infusions. Indication specific Heparin (anti-Xa) levels based on order set selection: Acute DVT or PE treatment: 0.3 ? 0.7 IU/mL Thrombosis Prevention (eg. atrial fibrillation, yvonne-procedural bridging, mechanical valves): 0.3 ? 0.7 IU/mL Acute Coronary Syndrome: 0.3 ? 0.7 IU/mL Stroke Indications: 0.3 ? 0.5 IU/mL Ultra-low intensity (select indications in cardiac surgery): 0.1 ? 0.3 IU/mL Blood 02/18/2022 11:2 6 AM EST 02/18/2022 11:41 AM EST Narrative Resulting Agency Comment Spec In Lab Ramon Garcia MD HEMATOLOGY ORDERABLE S Performing Organization Address City/State/[facility] Co de Phone Number [facility] [place] [address] * ECHO COMPLETE W CONTRAST (02/18/2022 10:31 AM EST) EF 52 HEARTLAB SYSTEM Anatomical Region Laterality Modality Cardiac Other 02/18/2022 9:15 AM EST Narrative 02/18/2022 11:39 AM EST ? Version 2 ? Echocardiogram Report Name: RAJAN FAULKNER W ?Study Date: 02/18/2022 09:15 AMBP: 126/62 mmHg ? Patient Location: [facility] 0[facility] A : 1950 ? Height: 173 cm ? Account: [id number] Age: 71 yrs ? Weight: 73 kg Gender: Male ?BSA: 1.9 m2 Ordering Physician: SARAH BARNES Performed By: CONNOR Rankin Reason For Study: Atrial Flutter Exam Location: [facility]. Interpretation Summary Patient is in 2:1 atrial flutter. Left ventricle is normal in size with mild hypertrophy and sigmoid septum. There is probably normal global systolic function; cannot accurately quantify due to signficant tachyarrhythmia. Right ventricle is normal in size and function. Normal left atrial size. No hemodynamically significant valve disease. IVC is non-dilated and non-plethoric. Procedure Complete-32630. Image enhancement Optison was used for left ventricular opacification. Suboptimal quality. This study is limited because the patient was unable to turn. Tachycardia. Left Ventricle Left ventricle is of normal size. Wall thickness is mildly increased. Moderately increased thickness of the basal septum with no obstruction to LV outflow. There is no ventricular septal defect. Left ventricular systolic function is normal. Left ventricular ejection fraction is estimated visually at 50-55%. There are no segmental wall motion abnormalities. Right Ventricle The right ventricle is probably normal in size. Right ventricular function is probably normal. Left Atrium The left atrium is probably normal. There is no evidence for a patent foramen ovale. Right Atrium The right atrium is not well visualized. Aortic Valve The aortic valve is tricuspid. The aortic valve is mildly thickened. The aortic valve is mildly calcified. There is calcification of the aortic annulus. There is no aortic stenosis. There is trace aortic regurgitation. Mitral Valve Mild thickening of the mitral leaflets. There is no mitral stenosis. There is trace mitral regurgitation. Tricuspid Valve The tricuspid valve is structurally normal. There is no tricuspid stenosis. There is trace tricuspid regurgitation. Pulmonic Valve The pulmonic valve appears to be structurally normal. There is no valvular pulmonic stenosis. There is mild pulmonic valve regurgitation. Great Arteries The aortic root at the level of the sinuses of Valsalva is mildly dilated. The diameter at the level of the sinuses of Valsalva is 4.0 cm. The ascending aorta is mildly dilated. The maximum diameter of the proximal ascending aorta is 3.7 cm. Venous Inferior vena cava is normal in size. Inferior vena cava collapse greater than 50% with respiration. Pericardium/Pleural There is no pericardial effusion. Hemodynamics Pulmonary artery hypertension could not be assessed due to inadequate tricuspid regurgitation jet. The estimated right atrial pressure is 3mmHg. Ejection Fraction ?2D Measurements ? Volumes LV Biplane EF: 47.5 % ? IVSd: 1.6 cm ? EDV Biplane: 68.0 ml ?LVIDd: 4.4 cm ?EDV Biplane Index: 36.5 ?LVIDs: 3.3 cm ?ESV Biplane: 35.7 ml ?LVPWd: 1.3 cm ?ESV Biplane Index: 19.2 ?LV mass(C)d: 255.2 grams ?LV mass(C)dI: 136.8 grams/m2 ?Ao root diam: 4.0 cm ?Ao root diam index: 2.2 ?asc Aorta Diam: 3.7 cm ?LVOT diam: 2.2 cm I ?WMSI = 1.00 ? % Normal = 100 ?Segments ??Size X - Cannot ?? 1 - Normal ?? 2 - ? 3 - Akinetic 4 - ?1-2 ? small Interpret ? Hypokinetic ?Dyskinetic ?? 3-5 ? moderate 5 - ? 6-14 ?large Aneurysmal ?15-16 ?? diffuse Procedure Note Ramon Garcia MD - 02/18/2022 Version 2 Echocardiogram Report Name: RAJAN FAULKNER Study Date: 209:15 AMBP: 126/62 mmHg Patient Location: [id number] A : 1950 Height: 173 cm Account: [id number] Age: 71 yrs Weight: 73 kg Gender: Male BSA: 1.9 m2 Ordering Physician: SARAH BARNES Performed By: CONNOR Rankin Reason For Study: Atrial Flutter Exam Location: [facility]. Interpretation Summary Patient is in 2:1 atrial flutter. Left ventricle is normal in size with mild hypertrophy and sigmoid septum.There is probably normal global systolic function; cannot accurately quantifydue to signficant tachyarrhythmia. Right ventricle is normal in size and function. Normal left atrial size. No hemodynamically significant valve disease. IVC is non-dilated and non-plethoric. Procedure Complete-91197. Image enhancement Optison was used for left ventricular opacification. Suboptimal quality. This study is limited because thepatient was unable to turn. Tachycardia. Left Ventricle Left ventricle is of normal size. Wall thickness is mildly increased.Moderately increased thickness of the basal septum with no obstruction to LV outflow.There is no ventricular septal defect. Left ventricular systolic function isnormal. Left ventricular ejection fraction is estimated visually at 50-55%. Thereare no segmental wall motion abnormalities. Right Ventricle The right ventricle is probably normal in size. Right ventricular functionis probably normal. Left Atrium The left atrium is probably normal. There is no evidence for a patentforamen ovale. Right Atrium The right atrium is not well visualized. Aortic Valve The aortic valve is tricuspid. The aortic valve is mildly thickened. Theaortic valve is mildly calcified. There is calcification of the aortic annulus.There is no aortic stenosis. There is trace aortic regurgitation. Mitral Valve Mild thickening of the mitral leaflets. There is no mitral stenosis. Thereis trace mitral regurgitation. Tricuspid Valve The tricuspid valve is structurally normal. There is no tricuspidstenosis. There is trace tricuspid regurgitation. Pulmonic Valve The pulmonic valve appears to be structurally normal. There is novalvular pulmonic stenosis. There is mild pulmonic valve regurgitation. Great Arteries The aortic root at the level of the sinuses of Valsalva is mildly dilated.The diameter at the level of the sinuses of Valsalva is 4.0 cm. The ascendingaorta is mildly dilated. The maximum diameter of the proximal ascending aorta is3.7 cm. Venous Inferior vena cava is normal in size. Inferior vena cava collapse greaterthan 50% with respiration. Pericardium/Pleural There is no pericardial effusion. Hemodynamics Pulmonary artery hypertension could not be assessed due to inadequatetricuspid regurgitation jet. The estimated right atrial pressure is 3mmHg. Ejection Fraction 2D Measurements Volumes LV Biplane EF: 47.5 % IVSd: 1.6 cm EDV Biplane: 68.0ml LVIDd: 4.4 cm EDV BiplaneIndex: 36.5 LVIDs: 3.3 cm ESV Biplane: 35.7ml LVPWd: 1.3 cm ESV BiplaneIndex: 19.2 LV mass(C)d: 255.2 grams LV mass(C)dI: 136.8 grams/m2 Ao root diam: 4.0 cm Ao root diam index: 2.2 asc Aorta Diam: 3.7 cm LVOT diam: 2.2 cm I WMSI = 1.00 % Normal = 100 SegmentsSize X - Cannot 1 - Normal 2 - 3 - Akinetic 4 - 1-2small Interpret Hypokinetic Dyskinetic 3-5moderate 5 - 6-14large Aneurysmal 15-16diffuse Sarah Barnes MD ECHO ORDERABLES * EKG 12 Lead (02/18/2022 6:25 AM EST) Ventricular rate 145 BPM MUSE SYSTEM Atrial Rate 290 BPM MUSE SYSTEM QRS Duration 92 ms MUSE SYSTEM Q-T Interval 354 ms MUSE SYSTEM QTC Calculated (Bezet) 549 ms MUSE SYSTEM Calculated P [place] 89 degrees MUSE SYSTEM Calculated R [place] 73 degrees MUSE SYSTEM Calculated T [place] -131 degrees MUSE SYSTEM INTERPRETATION Atrial flutter with 2:1 A-V conduction Minimal voltage criteria for LVH, may be normal variant Abnormal ECG When compared with ECG of 17-FEB-2022 13:18, (unconfirmed) No significant change was found Confirmed by MD Garcia Daniel ([id number]) on 02/18/2022 1:36:02 PM MUSE SYSTEM 02/18/2022 6:25 AM EST 02/18/2022 1:36 PM EST Sarah Barnes MD ECG ORDERABLES MUSE SYSTEM * XR Chest PA & Lateral (Generic) (02/18/2022 6:15 AM EST) Anatomical Region Laterality Modality Chest N/A Digital Radiogra phy Impressions 02/18/2022 6:41 AM EST Stable examination with stable position of the left chest tube and no significant interval change of the left hydropneumothorax. I have personally reviewed the image(s) and the resident's interpretation and agree with the findings, Sheeba Woods MD at 02/18/2022 6:41 AM Thank you for letting us participate in the care of this patient. ??If you are a health care provider and have any questions regarding this report, please contact the number below. ??For patients who have questions please contact the health rn acute care that requested your imaging first. ? Narrative 02/18/2022 6:41 AM EST EXAMINATION: XR CHEST PA AND LATERAL (GENERIC) CLINICAL HISTORY: eval chest tube and progression of effusion TECHNIQUE: PA and lateral views of the chest COMPARISON: 02/17/22, chest radiograph FINDINGS: The apically directed left chest has tip oriented towards the left apex. No appreciable interval change in air or fluid component within the left hydropneumothorax. Mild left atelectasis, also unchanged. Right lung is clear. The cardiomediastinal silhouette is stable. Pulmonary vasculature is within normal limits. No interval osseous changes. Procedure Note Sheeba Woods MD - 02/18/2022 EXAMINATION: XR CHEST PA AND LATERAL (GENERIC) CLINICAL HISTORY: eval chest tube and progression of effusion TECHNIQUE: PA and lateral views of the chest COMPARISON: 02/17/22, chest radiograph FINDINGS: The apically directed left chest has tip oriented towards the left apex. No appreciable interval change in air or fluid component within the left hydropneumothorax. Mild left atelectasis, also unchanged. Right lung isclear. The cardiomediastinal silhouette is stable. Pulmonary vasculature iswithin normal limits. No interval osseous changes. IMPRESSION Stable examination with stable position of the left chest tube and no significant interval change of the left hydropneumothorax. I have personally reviewed the image(s) and the resident's interpretationand agree with the findings, Sheeba Woods MD at 02/18/2022 6:41 AM Thank you for letting us participate in the care of this patient. If youare a health care provider and have any questions regarding this report,please contact the number below. For patients who have questions please contactthe health rn acute care that requested your imaging first. Ramon Garcia MD IMG DX ORDERABLES * (ABNORMAL) Differential, Automated (02/18/2022 4:13 AM EST) Neutrophil % 69.7 % [facility] Neutrophil Absolute 6.60(H) 1.70 - 6.10 x10(3)/mc L [facility] Lymph % 18.0 % [facility] Lymphocytes Abs 1.7 0.9 - 3.2 x10(3)/[facility] Monocyte % 11.2 % [facility] Monocyte Abs 1.1(H) 0.3 - 0.9 x10(3)/[facility] Eos % 0.3 % [facility] Eosinophils Abs 0.0 0.0 - 0.4 x10(3)/[facility] Basophil % 0.5 % [facility] Baso Absolute 0.0 0.0 - 0.1 x10(3)/[facility] Immature Gran % 0.30 % [facility] Comment: Immature granulocytes(IG's)percentage and absolute count will include metamyelocytes, myelocytes, and promyelocytes. Blood smears from CBCs yielding IG's will be scanned manually for concordance. If this scan disagrees with the automated IG or if promyelocytes are noted, a manual differential will be performed. Immature Gran Absolute 0.03 0.00 - 0.04 x10(3)/[facility] Blood 02/18/2022 4:13 AM EST 02/18/2022 4:29 AM EST Narrative Resulting Agency Comment Spec In Lab Sarah Barnes MD HEMATOLOGY ORDERABLE S Performing Organization Address City/State/[facility] Co de Phone Number [facility] [place] [address] * (ABNORMAL) Hemogram (02/18/2022 4:13 AM EST) White Blood Cell 9.5 4.0 - 9.5 x10(3)/[facility] Red Blood Cell 4.18(L) 4.58 - 5.54 x10(6)/[facility] Hemoglobin 11.7(L) 13.7 - 16.5 g/dL [facility] Hematocrit 35.8(L) 40.5 - 48.5 % [facility] Mean Cell Volume 85.6 82.9 - 93.1 fL [facility] Mean Cell Hemoglobin 28.0 27.5 - 32.[address] [facility] Mean Cell Hemoglobin Concentration 32.7 32.0 - 35.7 g/dL [facility] Platelet 280 145 - 357 x10(3)/mc L [facility] RDW Standard Deviation 43.3 36.0 - 45.[address] [facility] RDW coefficient of variation 14.0(H) 11.4 - 13.8 % [facility] Mean Platelet Volume 9.4 7.6 - 12.[address] [facility] NRBC% auto 0.0 % [facility] NRBC Absolute 0.000 0.000 - 0.000 x10(3)/mc L [facility] Blood 02/18/2022 4:13 AM EST 02/18/2022 4:29 AM EST Narrative Resulting Agency Comment Spec In Lab Sarah Barnes MD HEMATOLOGY ORDERABLE S Performing Organization Address City/[facility] Co de Phone Number [facility] [place] [address] * Magnesium (02/18/2022 4:13 AM EST) Magnesium 0.77 0.69 - 1.07 mmol/L [facility] Blood 02/18/2022 4:13 AM EST 02/18/2022 4:29 AM EST Narrative Resulting Agency Comment Spec In Lab Sarah Barnes MD CHEMISTRY ORDERABLES Performing Organization Address [facility] de Phone Number [facility] [place] [address] * (ABNORMAL) BMP w/fasting Glucose (02/18/2022 4:13 AM EST) Glucose Fasting 83 65 - 99 mg/dL [facility] Comment: ?Fasting* Glucose Interpretive Criteria Normal ?65-99 mg/dL Impaired Fasting glucose ?100-125 mg/dL Consistent with Diabetes Mellitus ? >or= 126 mg/dL *Fasting is defined as no caloric intake for at least 8 hours In the absence of unequivocal hyperglycemia a plasma glucose value of >or= 126 mg/dL should be repeated on a subsequent day. Diagnosis and Classification of Diabetes Mellitus, Position Statement from the [place] [employer]. ??Diabetes Care, Volume 33, Supplement 1, Mar 2009 Blood Urea Nitrogen 15 10 - 20 mg/dL [facility] Creatinine 0.96 0.80 - 1.50 mg/dL [facility] Sodium 135 135 - 145 mmol/L [facility] Potassium 4.2 3.5 - 5.0 mmol/L [facility] Comment: Please note: ??Patients with WBC >100,000 may have falsely elevated Potassium levels. ??For accurate Potassium quantification in these patients send serum separator tube (gold top) for subsequent determinations. ??Contact the Clinical Chemistry Laboratory if there are any questions. Chloride 103 98 - 107 mmol/L [facility] Carbon Dioxide 20(L) 22 - 31 mmol/L [facility] Anion Gap 12 5 - 15 mmol/L [facility] Calcium 9.3 8.5 - 10.5 mg/dL [facility] Est Glomerular Filtration Rate 84 >=60 mL/min/1. 73 m?? [facility] Comment: This patient's estimated GFR was [...] and symptoms in addition to eGFR. Blood 02/18/2022 4:13 AM EST 02/18/2022 4:29 AM EST Narrative Resulting Agency Comment Spec In Lab Sarah Barnes MD CHEMISTRY ORDERABLES [facility] [place] [address] * Heparin (unfractionated) Level (02/18/2022 4:13 AM EST) UF Heparin 0.12 IU/mL [facility] Comment: Heparin (anti-Xa) levels should be determined in a plasma sample that has been drawn 6 hours after a dose change to approximate steady-state for continuous heparin infusions. Indication specific Heparin (anti-Xa) levels based on order set selection: Acute DVT or PE treatment: 0.3 ? 0.7 IU/mL Thrombosis Prevention (eg. atrial fibrillation, yvonne-procedural bridging, mechanical valves): 0.3 ? 0.7 IU/mL Acute Coronary Syndrome: 0.3 ? 0.7 IU/mL Stroke Indications: 0.3 ? 0.5 IU/mL Ultra-low intensity (select indications in cardiac surgery): 0.1 ? 0.3 IU/mL Blood 02/18/2022 4:13 AM EST 02/18/2022 4:29 AM EST Narrative Resulting Agency Comment Spec In Lab Ramon Garcia MD HEMATOLOGY ORDERABLE S Performing Organization Address City/State/[facility] Co de Phone Number [facility] [place] [address] * US Cardiac (POCUS) (02/17/2022 4:51 PM EST) Anatomical Region Laterality Modality Cardiac Other 02/17/2022 4:51 PM EST Narrative 02/17/2022 4:03 PM EST Exam Information A focused ultrasound exam of the heart was performed to evaluate for pericardial effusion, tamponade, right ventricular strain, severe hypovolemia, as well as gross abnormalities of cardiac anatomy and systolic function.: Indication(s) The ultrasound was performed with the following indications: : Arrhythmia Views The pericardial sac, myocardium, and 4 chambers were identified using the following views: : Parasternal long-axis ,Parasternal short-axis ,Apical 4-chamber Findings LV function:: Moderate Dysfunction (LVEF 30-50%) E-Point Septal Separation (EPSS): ??mm RV function:: Tricuspid Annular Plane Systolic Excursion (TAPSE): ??mm Pericardial effusion: : Absent IVC size:: Window not obtained IVC collapsibility:: Window not obtained Aortic root diameter (measured in PSLX):: Aortic root measurment:: : ??cm Other findings:: Impression Impression:: Decreased EF Other impression:: Confirmatory Study What confirmatory study was done:: Not applicable Results:: CPT Code 47478:Limited Basic Cardiac (50134) Electronically Signed by the following Performing: ?on 16:03 Attending: ?on 16:03 PDF Procedure Note Sommer Pryor MD - 02/21/2022 Exam Information A focused ultrasound exam of the heart was performed to evaluate forpericardial effusion, tamponade, right ventricular strain, severe hypovolemia, as well as grossabnormalities of cardiac anatomy and systolic function.: Indication(s) The ultrasound was performed with the following indications: :Arrhythmia Views The pericardial sac, myocardium, and 4 chambers were identified using thefollowing views: : Parasternal long-axis ,Parasternal short-axis ,Apical 4-chamber Findings LV function:: Moderate Dysfunction (LVEF 30-50%) E-Point Septal Separation (EPSS): mm RV function:: Tricuspid Annular Plane Systolic Excursion (TAPSE): mm Pericardial effusion: : Absent IVC size:: Window not obtained IVC collapsibility:: Window not obtained Aortic root diameter (measured in PSLX):: Aortic root measurment:: : cm Other findings:: Impression Impression:: Decreased EF Other impression:: Confirmatory Study What confirmatory study was done:: Not applicable Results:: CPT Code 36306:Limited Basic Cardiac (09098) Electronically Signed by the following Performing: on 16:03Attending: on 16:03 PDF Sommer Pryor MD EA IMAGES * XR Chest PA & Lateral (Generic) (02/17/2022 2:05 PM EST) Anatomical Region Laterality Modality Chest N/A Digital Radiogra phy Impressions 02/17/2022 2:16 PM EST 1. Left chest tube remains in position. 2. There is a small left pneumothorax which has diminished in size. 3. Moderate size left pleural effusion/hemothorax is not significantly changed. Thank you for letting us participate in the care of this patient. ??If you are a health care provider and have any questions regarding this report, please contact the number below. ??For patients who have questions please contact the health rn acute care that requested your imaging first. ? Narrative 02/17/2022 2:16 PM EST EXAMINATION: XR CHEST PA AND LATERAL (GENERIC) CLINICAL HISTORY: left chest tube, tachycardic TECHNIQUE: AP and lateral upright views of the chest COMPARISON: February 10, 2022 FINDINGS: The right lung remains clear and well-expanded. Left chest tube remains in position with the tip posterior lateral to the aortic arch. Pleural fluid collection remains from the apex to the costophrenic angles. Free air collection has diminished in size. No significant opacity is seen in the left lung. Heart and pulmonary vasculature are not increased. No acute osseous finding. Procedure Note Matias Mata MD - 02/17/2022 EXAMINATION: XR CHEST PA AND LATERAL (GENERIC) CLINICAL HISTORY: left chest tube, tachycardic TECHNIQUE: AP and lateral upright views of the chest COMPARISON: February 10, 2022 FINDINGS: The right lung remains clear and well-expanded. Left chest tube remains in position with the tip posterior lateral to theaortic arch. Pleural fluid collection remains from the apex to the costophrenicangles. Free air collection has diminished in size. No significant opacity is seenin the left lung. Heart and pulmonary vasculature are not increased. No acute osseousfinding. IMPRESSION 1. Left chest tube remains in position. 2. There is a small left pneumothorax which has diminished in size. 3. Moderate size left pleural effusion/hemothorax is not significantlychanged. Thank you for letting us participate in the care of this patient. If youare a health care provider and have any questions regarding this report,please contact the number below. For patients who have questions please contactthe health rn acute care that requested your imaging first. Sommer Pryor MD IMG DX ORDERABLES * TSH (02/17/2022 1:50 PM EST) Pathologist [facility] Thyroid Stimulating Hormone 1.36 0.27 - 4.20 mcIU/mL [facility] Comment: Reference Interval (mcIU/mL): Females: ??First Trimester: 0.23-3.88 ??Second Trimester: 0.22-3.90 ??Third Trimester: 0.44-4.66 Blood Venous Draw / Unknown 02/17/2022 1:50 PM EST 02/17/2022 1:59 PM EST Narrative Resulting Agency Comment Spec In Lab Sarah Barnes MD CHEMISTRY ORDERABLES [facility] [place] [address] * (ABNORMAL) pro-Brain Natriuretic Peptide (02/17/2022 1:50 PM EST) [facility] NT-proBNP 3,033(H) <=124 pg/mL [facility] Blood Venous Draw / Unknown 02/17/2022 1:50 PM EST 02/17/2022 1:59 PM EST Narrative Resulting Agency Comment Spec In Lab Sarah Barnes MD CHEMISTRY ORDERABLES [facility] [place] [address] * (ABNORMAL) Differential, Automated (02/17/2022 1:50 PM EST) Pathologist [facility] Neutrophil % 74.6 % [facility] Neutrophil Absolute 7.60(H) 1.70 - 6.10 x10(3)/mc L [facility] Lymph % 13.6 % [facility] Lymphocytes Abs 1.4 0.9 - 3.2 x10(3)/mc L [facility] Monocyte % 10.8 % [facility] Monocyte Abs 1.1(H) 0.3 - 0.9 x10(3)/ L [facility] Eos % 0.3 % [facility] Eosinophils Abs 0.0 0.0 - 0.4 x10(3)/ L [facility] Basophil % 0.3 % [facility] Baso Absolute 0.0 0.0 - 0.1 x10(3)/ L [facility] Immature Gran % 0.40 % [facility] Comment: Immature granulocytes(IG's)percentage and absolute count will include metamyelocytes, myelocytes, and promyelocytes. Blood smears from CBCs yielding IG's will be scanned manually for concordance. If this scan disagrees with the automated IG or if promyelocytes are noted, a manual differential will be performed. Immature Gran Absolute 0.04 0.00 - 0.04 x10(3)/ L [facility] Blood 02/17/2022 1:50 PM EST 02/17/2022 1:58 PM EST Narrative Resulting Agency Comment Spec In Lab Michelle Contreras MD HEMATOLOGY ORDERABLE S [facility] [place] [address] * (ABNORMAL) Hemogram (02/17/2022 1:50 PM EST) White Blood Cell 10.2(H) 4.0 - 9.5 x10(3)/mc L [facility] Red Blood Cell 3.99(L) 4.58 - 5.54 x10(6)/ L [facility] Hemoglobin 11.0(L) 13.7 - 16.5 g/dL [facility] Hematocrit 33.6(L) 40.5 - 48.5 % [facility] Mean Cell Volume 84.2 82.9 - 93.1 fL [facility] Mean Cell Hemoglobin 27.6 27.5 - 32.1 pg [facility] Mean Cell Hemoglobin Concentration 32.7 32.0 - 35.7 g/dL [facility] Platelet 314 145 - 357 x10(3)/mc L [facility] RDW Standard Deviation 43.4 36.0 - 45.[address] [facility] RDW coefficient of variation 14.0(H) 11.4 - 13.8 % [facility] Mean Platelet Volume 9.2 7.6 - 12.[address] [facility] NRBC% auto 0.0 % [facility] NRBC Absolute 0.000 0.000 - 0.000 x10(3)/mc L [facility] Blood 02/17/2022 1:50 PM EST 02/17/2022 1:58 PM EST Narrative Resulting Agency Comment Spec In Lab Michelle Contreras MD HEMATOLOGY ORDERABLE S Performing Organization Address City/[facility]/ZIP Co de Phone Number [facility] [place] [place] [address] * Magnesium (02/17/2022 1:50 PM EST) Magnesium 0.74 0.69 - 1.07 mmol/L [facility] Blood 02/17/2022 1:50 PM EST 02/17/2022 1:58 PM EST Narrative Resulting Agency Comment Spec In Lab Sommer Pryor MD CHEMISTRY ORDERABLE S Performing Organization Address City/[facility]/ZIP Co de Phone Number [facility] [place] [address] * Phosphorus (02/17/2022 1:50 PM EST) Phosphorus 2.8 2.5 - 4.5 mg/dL [facility] Blood 02/17/2022 1:50 PM EST 02/17/2022 1:58 PM EST Narrative Resulting Agency Comment Spec In Lab Sommer Pryor MD CHEMISTRY ORDERABLE S [facility] [place] [address] * Comprehensive metabolic panel (non-fasting) (02/17/2022 1:50 PM EST) Glucose 95 65 - 199 mg/dL [facility] Comment:Diabetes: >=200 mg/d L plus symptoms Blood Urea Nitrogen 16 10 - 20 mg/dL [facility] Creatinine 1.04 0.80 - 1.50 mg/dL [facility] Sodium 138 135 - 145 mmol/L [facility] Potassium 4.2 3.5 - 5.0 mmol/L [facility] Comment: Please note: ??Patients with WBC >100,000 may have falsely elevated Potassium levels. ??For accurate Potassium quantification in these patients send serum separator tube (gold top) for subsequent determinations. ??Contact the Clinical Chemistry Laboratory if there are any questions. Chloride 104 98 - 107 mmol/L [facility] Carbon Dioxide 23 22 - 31 mmol/L [facility] Anion Gap 11 5 - 15 mmol/L [facility] Calcium 9.6 8.5 - 10.5 mg/dL [facility] Protein, Total 6.8 6.1 - 8.0 g/dL [facility] Albumin 3.5 3.2 - 5.2 g/dL [facility] Aspartate Aminotransferase 18 0 - 39 unit/L [facility] Alanine Aminotransferase 12 0 - 55 unit/L [facility] Alkaline Phosphatase 67 40 - 130 unit/L [facility] Bilirubin, Total 0.3 0.2 - 1.3 mg/dL [facility] Est Glomerular Filtration Rate 76 >=60 mL/min/1. 73 m?? [facility] Comment: This patient's estimated GFR was [...] and symptoms in addition to eGFR. Blood 02/17/2022 1:50 PM EST 02/17/2022 1:58 PM EST Narrative Resulting Agency Comment Spec In Lab Sommer Pryor MD CHEMISTRY ORDERABLE S [facility] [place] [address] * EKG 12 Lead (02/17/2022 1:18 PM EST) Ventricular rate 142 BPM MUSE SYSTEM Atrial Rate 284 BPM MUSE SYSTEM QRS Duration 96 ms MUSE SYSTEM Q-T Interval 324 ms MUSE SYSTEM QTC Calculated (Bezet) 498 ms MUSE SYSTEM Calculated P [place] -101 degrees MUSE SYSTEM Calculated R [place] 75 degrees MUSE SYSTEM Calculated T [place] -88 degrees MUSE SYSTEM INTERPRETATION Atrial flutter with 2:1 A-V conduction Minimal voltage criteria for LVH, may be normal variant ( Pryor product ) Abnormal ECG When compared with ECG of 13-FEB-2021 15:15, Atrial flutter has replaced Sinus rhythm Vent. rate has increased BY ??[address] now depressed in Inferior leads T wave inversion now evident in Inferior leads Nonspecific T wave abnormality now evident in Lateral leads Confirmed by MD Glenda, [facility] ([id number]) on 02/18/2022 4:23:20 PM MUSE SYSTEM 02/17/2022 1:18 PM EST 02/18/2022 4:23 PM EST Sommer Pryor MD ECG ORDERABLES Performing Organization Address [facility] Co de Phone Number MUSE SYSTEM documented in this encounter Visit Diagnoses Diagnosis Atrial flutter- Primary Atrial flutter Mass of upper lobe of left lung documented in this encounter Admitting Diagnoses Diagnosis Atrial flutter documented in this encounter Administered Medications Inactive Administered Medications - up to 3 most recent administrations Medication Order MAR Action Action Date Dose Rate Site acetaminophen (Tylenol) tablet 1,000 mg 1,000 mg, Oral, EVERY 6 HOURS, First dose on 02/17/22 at 2115, Until Discontinued, Maximum dose of acetaminophen is 4000 mg from all sources in 24 hours. When ordered for pain, acetaminophen should be given even when other ordered pain medications are indicated. , Routine Given 02/21/2022 9:14 AM EST 1,000 mg Given 02/21/2022 4:16 AM EST 1,000 mg Given 02/20/2022 9:13 PM EST 1,000 mg AMIOdarone (Nexterone) (1.8 mg/mL) in dextrose (iso-osmotic) infusion 1 mg/min (33.3333 mL/hr, rounded to 33.3 mL/hr), Intravenous, CONTINUOUS, Starting on Sat02/20/22 at 0900, Until Sat02/21/22 at 1509, 1 mg/min for 6 hrs, then 0.5 mg/min for 18 hrs. After first 24 hours, order maintenance dose 0.5 mg/min. Use in-line filter. Warning Vesicant/Irritant Medication New Bag 02/21/2022 1:09 AM EST 0.501 mg/min 16.7 mL/hr Rate/Dose Change 02/20/2022 7:08 PM EST 0.5 mg/min 16.7 mL /hr New Bag 02/20/2022 4:37 PM EST 1 mg/min 33.3 mL/hr AMIOdarone (Paceron) tablet 400 mg 400 mg, Oral, 2 TIMES DAILY, First dose on Sat02/19/22 at 1230, Until Discontinued, Routine Given 02/19/2022 9:00 PM EST 400 mg Given 02/19/2022 11:50 AM EST 400 mg AMIOdarone (Paceron) tablet 400 mg 400 mg, Oral, 2 TIMES DAILY, First dose on Sat02/20/22 at 0930, Until Discontinued, Routine Given 02/21/2022 9:14 AM EST 400 mg Given 02/20/2022 9:13 PM EST 400 mg Given 02/20/2022 8:52 AM EST 400 mg buPROPion SR (Wellbutrin SR) tablet 150 mg 150 mg, Oral, DAILY, First dose on Sat02/18/22 at 0900, Until Discontinued, DO NOT CRUSH OR OPEN, Routine Given 02/21/2022 9:14 AM EST 150 mg Given 02/20/2022 8:19 AM EST 150 mg Given 02/19/2022 9:14 AM EST 150 mg digoxin (LANOXIN) injection 125 mcg 125 mcg, Intravenous, EVERY 6 HOURS, 2 doses, First dose on Sat02/18/22 at 0000, Last dose on Sat02/18/22 at 0600, Routine Given 02/18/2022 6:28 AM ES T 125 mcg Given 02/18/2022 12:29 AM EST 125 mcg digoxin (LANOXIN) injection 250 mcg 250 mcg, Intravenous, ONCE, 1 dose, On 02/17/22 at 1802, Routine Given 02/17/2022 6:52 PM EST 250 mcg heparin (porcine) (1,000 units/mL) injection 0-8,000 Units 0-8,000 Units, Intravenous, BOLUS PER HEPARIN PROTOCOL, Starting on 02/17/22 at 2042, Until Tu02/20/22 at 0638, Per Protocol, START ADJUSTMENT SCHEDULE 6 HOURS AFTER STARTING INFUSION Bolus doses are rounded to the nearest 100 units. If Heparin UFH Level is: - Less than 0.1 international unit/mL: Bolus 70 units/kg (Maximum of 8,000 units) = Bolus 5,200 units - 0.1 - 0.19 International unit/mL: Bolus 35 units/kg (Maximum of 4,000 units) = Bolus 2,600 units - Equal to or greater than 0.2 international unit/mL: No Bolus, Routine Given 02/19/2022 5:35 AM EST 2,600 Units Given 02/18/2022 9:51 PM EST 5,200 Units Given 02/18/2022 12:02 PM EST 2,600 Units heparin (porcine) 50 units/mL in sodium chloride 0.45% 500 mL infusion 0-5,000 Units/hr (0-100 mL/hr), Intravenous, CONTINUOUS, Starting on 02/17/22 at 2130, Until Sat02/19/22 at 1700, Begin infusion at 1,100 units per hr (15 units/kg/hr). Maximum initial infusion rate is 2,000 units/hr Infusion doses are rounded to the nearest 50 units. Target Heparin UFH Level (anti-Xa activity) = 0.3 - 0.7 international unit/mL Start adjustment schedule 6 hours after starting infusion. If Heparin UFH Level is: - Less than 0.1 international unit/mL: Administer PRN bolus and increase rate by 300 units per hr (4 units/kg/hr) - 0.1 - 0.19 international unit/mL: Administer PRN bolus and increase rate by 150 units per hr (2 units/kg/hr) - 0.2 - 0.29 international unit/mL: NO BOLUS and increase rate by 150 units per hr (2 units/kg/hr) - 0.3 - 0.7 international unit/mL: No change - 0.71 - 0.79 international unit/mL: NO BOLUS and decrease rate by 50 units per hr (1 units/kg/hr) - 0.8 - 0.99 international unit/mL: NO BOLUS and decrease rate by 150 units per hr (2 units/kg/hr) - Greater than or equal to 1.00 international unit/mL: Hold infusion for 60 minutes then decrease rate by 200 units per hour (3 units/kg/hr) Repeat Heparin UFH Level 6 hours after initiating heparin. Then 6 hours after each dose adjustment. When 2 consecutive Heparin UFH Level within target range of 0.3 - 0.7 international unit/mL, change Heparin UFH Level to once every 24 hours with A.M. labs while on heparin. RN to order required Heparin UFH Level - Per Protocol, Routine Rate/Dose Change 02/19/2022 1:37 PM EST 2,000 Units/hr 40 mL/hr New Bag 02/19/2022 12:51 PM EST 1,850 Units/hr 37 mL/hr Rate/Dose Verify 02/19/2022 9:13 AM EST 1,850 Units/hr 37 mL/hr hydrOXYchloroQUINE (Plaquenil) tablet 200 mg 200 mg, Oral, DAILY, First dose on Sat02/18/22 at 0900, Until Discontinued, Routine Given 02/21/2022 9:1 4 AM EST 200 mg Given 02/20/2022 8:19 AM EST 200 mg Given 02/19/2022 9:14 AM EST 200 mg ipratropium-albuteroL (Duoneb) 0.5 mg-3 mg(2.5 mg base)/3 mL nebulizer solution 3 mL 3 mL, Nebulization, EVERY 6 HOURS PRN, Starting on 02/17/22 at 2030, Until Sat02/21/22 at 1509, Wheezing, Routine magnesium sulfate 2 g in sterile water 50 mL infusion 2 g, Intravenous, ONCE, 1 dose, On 02/19/22 at 0700, Administer over 120 Minutes New Bag 02/19/2022 6:36 AM EST 2 g 25 mL/hr magnesium sulfate 2 g in sterile water 50 mL infusion 2 g, Intravenous, ONCE, 1 dose, On Sat02/20/22 at 0745, Administer over 120 Minutes New Bag 02/20/2022 8:20 AM EST 2 g 25 mL/hr magnesium sulfate 2 g in sterile water 50 mL infusion 2 g, Intravenous, ONCE, 1 dose, On Sat02/21/22 at 0715, Administer over 120 Minutes New Bag 02/21/2022 6:54 AM EST 2 g 25 mL/hr metoprolol (LOPRESSOR) injection 5 mg 5 mg, Intravenous, EVERY 5 MIN PRN, Starting on 02/17/22 at 1354, Until 02/19/22 at 1010, Elevated Heart Rate, for HR >120 bpm, Hold for BP <110 mmHg systolic Given 02/17/2022 2:26 PM EST 5 mg Given 02/17/2022 2:18 PM EST 5 mg Given 02/17/2022 2:08 PM EST 5 mg metoprolol tartrate (Lopressor) tablet 12.5 mg 12.5 mg, Oral, EVERY 12 HOURS SCHEDULED (2 times per day), First dose on 02/17/22 at 2115, Until Discontinued, Hold for SBP <90 or HR <60, Routine Given 02/17/2022 9:47 PM EST 12.5 mg metoprolol tartrate (Lopressor) tablet 12.5 mg 12.5 mg, Oral, EVERY 6 HOURS SCHEDULED, First dose (after last modification) on 02/18/22 at 0745, Until Discontinued, Hold for SBP <90 or HR <60, Routine Given 02/19/2022 9:14 AM EST 12.5 mg Given 02/19/2022 3:49 AM EST 12.5 mg Given 02/18/2022 9:48 PM EST 12.5 mg metoprolol tartrate (Lopressor) tablet 12.5 mg 12.5 mg, Oral, EVERY 6 HOURS SCHEDULED, First dose (after last modification) on 02/19/22 at 1500, Until Discontinued, Hold if SBP < 90mmHg, Routine Given 02/21/2022 12:51 PM EST 12.5 mg Given 02/21/2022 5:17 AM EST 12.5 mg Given 02/21/2022 12:14 AM EST 12.5 mg pantoprazole EC (Protonix) tablet 20 mg 20 mg, Oral, DAILY, First dose on 02/18/22 at 0900, Until Discontinued Given 02/21/2022 9:13 AM EST 20 mg Given 02/20/2022 8:19 AM EST 20 mg Given 02/19/2022 9:14 AM EST 20 mg perflutren protein-A microsphers (Optison) (0.22 mg/mL) injection 3 mL 3 mL, Intravenous, ONCE PRN, 1 dose, Starting on Sat02/18/22 at 1031, Until 02/18/22 at 1031, prn, Routine Given 02/18/2022 10:31 AM EST 3 mLs potassium chloride ER (K-Dur/Klor-Con) tablet 20 mEq 20 mEq, Oral, ONCE, 1 dose, On Sat02/20/22 at 0815, 20 mEq tablet may be dissolved in water for administration, Routine Given 02/20/2022 8:19 AM EST 20 mEq rivaroxaban (Xarelto) tablet 20 mg 20 mg, Oral, DAILY WITH DINNER, First dose on Sat02/19/22 at 1700, Until Discontinued, Routine, Restricted anticoagulant, choose the most appropriate response: Approved indication of non-valvular atrial fibrillation Given 02/20/2022 4:37 PM EST 20 mg Given 02/19/2022 4:32 PM EST 20 mg sodium chloride 0.9 % (flush) (BD PosiFlush Normal Saline 0.9) flush 5 mL 5 mL, Intravenous, 2 TIMES DAILY, First dose on 02/17/22 at 2115, Until Discontinued, Routine Given 02/21/2022 9:15 AM EST 5 mLs Given 02/20/2022 9:13 PM EST 5 mLs Given 02/20/2022 8:53 AM EST 5 mLs tamsulosin (Flomax) capsule 0.4 mg 0.4 mg, Oral, DAILY, First dose on 02/18/22 at 0900, Until Discontinued, DO NOT CRUSH OR OPEN, Routine Given 02/21/2022 9:14 AM EST 0.4 mg Given 02/20/2022 8:19 AM EST 0.4 mg Given 02/19/2022 9:14 AM EST 0.4 mg tiotropium bromide (Spiriva Respimat) 2.5 mcg/actuation inhaler 2 puff 2 puff, Inhalation, DAILY, First dose on Sun 11/22 at 0900, Until Discontinued, Must be primed prior to first administration, Routine Given 02/21/2022 9:13 AM EST 2 puffs Given 02/20/2022 8:19 AM EST 2 puffs Given 02/19/2022 9:14 AM EST 2 puffs documented in this encounter Active and Recently Administered Medications Times are shown in EST. Scheduled Medication Order 02/19/2022 02/20/2022 02/21/2022 acetaminophen (Tylenol) tablet 1,000 mg 1,000 mg, Oral, EVERY 6 HOURS, First dose on Sat02/17/22 at 2115, Until Discontinued, Maximum dose of acetaminophen is 4000 mg from all sources in 24 hours. When ordered for pain, acetaminophen should be given even when other ordered pain medications are indicated. , Routine 0349 (Given - Provider: Nancy Fleming RN)0914 (Given - Provider: Naomie Monteiro RN)1630 (Given - Provider: Naomie Monteiro RN)2100 (Given - Provider: Nancy Fleming RN) 0345 (Given - Provider: Nancy Fleming RN)0819 (Given - Provider: Mk Stanford RN)1515 (Not Given - Provider: Mk Stanford RN - Reason: Patient/family refused)2112 (Given - Provider: Nancy Fleming RN) 0416 (Given - Provider: Nancy Fleming RN)0914 (Given - Provider: Mk Stanford RN) AMIOdarone (Paceron) tablet 400 mg (CANCELED) 400 mg, Oral, 2 TIMES DAILY, First dose on Sat02/19/22 at 1230, Until Discontinued, Routine 1150 (Given - Provider: Naomie Monteiro RN)2100 (Given - Provider: Nancy Fleming RN) AMIOdarone (Paceron) tablet 400 mg 400 mg, Oral, 2 TIMES DAILY, First dose on Sat02/20/22 at 0930, Until Discontinued, Routine 0852 (Given - Provider: Mk Stanford RN)211 (Given - Provider: Nancy Fleming RN) 0914 (Given - Provider: Mk Stanford RN) buPROPion SR (Wellbutrin SR) tablet 150 mg 150 mg, Oral, DAILY, First dose on Sat02/18/22 at 0900, Until Discontinued, DO NOT CRUSH OR OPEN, Routine 09 (Given - Provider: Naomie Monteiro RN) 0819 (Given - Provider: Mk Stanford RN) 0914 (Given - Provider: Mk Stanford RN) hydrOXYchloroQUINE (Plaquenil) tablet 200 mg 200 mg, Oral, DAILY, First dose on Sat02/18/22 at 0900, Until Discontinued, Routine 09 (Given - Provider: Naomie Monteiro RN) 08 (Given - Provider: Mk Stanford RN) 0914 (Given - Provider: Mk Stanford RN) magnesium sulfate 2 g in sterile water 50 mL infusion (COMPLETED) 2 g, Intravenous, ONCE, 1 dose, On Sat02/19/22 at 0700, Administer over 120 Minutes 0636 (New Bag - Provider: Nancy Fleming RN)0836 (Stopped - Provider: Naomie Monteiro RN) magnesium sulfate 2 g in sterile water 50 mL infusion (COMPLETED) 2 g, Intravenous, ONCE, 1 dose, On Sat02/20/22 at 0745, Administer over 120 Minutes 0820 (New Bag - Provider: Mk Stanford RN)1020 (Stopped - Provider: Mk Stanford RN) magnesium sulfate 2 g in sterile water 50 mL infusion (COMPLETED) 2 g, Intravenous, ONCE, 1 dose, On Sat02/21/22 at 0715, Administer over 120 Minutes 0654 (New Bag - Provider: Nancy Fleming RN)0854 (Stopped - Provider: Mk Stanford RN) metoprolol tartrate (Lopressor) tablet 12.5 mg (CANCELED) 12.5 mg, Oral, EVERY 6 HOURS SCHEDULED, First dose (after last modification) on Sat02/18/22 at 0745, Until Discontinued, Hold for SBP <90 or HR <60, Routine 0349 (Given - Provider: Nancy Fleming RN)09 (Given - Provider: Naomie Monteiro RN) metoprolol tartrate (Lopressor) tablet 12.5 mg 12.5 mg, Oral, EVERY 6 HOURS SCHEDULED, First dose (after last modification) on Sat02/19/22 at 1500, Until Discontinued, Hold if SBP < 90mmHg, Routine 1630 (Given - Provider: Naomie Monteiro RN) 0009 (Given - Provider: Nancy Fleming RN)0531 (Given - Provider: Nancy Fleming RN)1134 (Given - Provider: Mk Stanford RN)1839 (Given - Provider: Mk Stanford RN) 0014 (Given - Provider: Nancy Fleming RN)0517 (Given - Provider: Nancy Fleming RN)1251 (Given - Provider: Radha Gunn, CHRISTINA) pantoprazole EC (Protonix) tablet 20 mg 20 mg, Oral, DAILY, First dose on Sat02/18/22 at 0900, Until Discontinued 0914 (Given - Provider: Naomie Monteiro RN) 0819 (Given - Provider: Mk Stanford RN) 0913 (Given - Provider: Mk Stanford RN) potassium chloride ER (K-Dur/Klor-Con) tablet 20 mEq (COMPLETED) 20 mEq, Oral, ONCE, 1 dose, On Sat02/20/22 at 0815, 20 mEq tablet may be dissolved in water for administration, Routine 0819 (Given - Provider: Mk Stanford RN) rivaroxaban (Xarelto) tablet 20 mg 20 mg, Oral, DAILY WITH DINNER, First dose on Sat02/19/22 at 1700, Until Discontinued, Routine, Restricted anticoagulant, choose the most appropriate response: Approved indication of non-valvular atrial fibrillation 1632 (Given - Provider: Naomie Monteiro RN) 1637 (Given - Provider: Mk Stanford RN) sodium chloride 0.9 % (flush) (BD PosiFlush Normal Saline 0.9) flush 5 mL 5 mL, Intravenous, 2 TIMES DAILY, First dose on 02/17/22 at 2115, Until Discontinued, Routine 0915 (Given - Provider: Naomie Monteiro RN)210 (Given - Provider: Nancy Fleming RN) 0853 (Given - Provider: kM Stanford RN)211 (Given - Provider: Nancy Fleming RN) 0915 (Given - Provider: Mk Stanford RN) tamsulosin (Flomax) capsule 0.4 mg 0.4 mg, Oral, DAILY, First dose on 02/18/22 at 0900, Until Discontinued, DO NOT CRUSH OR OPEN, Routine 913 (Given - Provider: Naomie Monteiro RN) 08 (Given - Provider: Mk Stanford RN) 913 (Given - Provider: Mk Stanford RN) tiotropium bromide (Spiriva Respimat) 2.5 mcg/actuation inhaler 2 puff 2 puff, Inhalation, DAILY, First dose on 02/18/22 at 0900, Until Discontinued, Must be primed prior to first administration, Routine 913 (Given - Provider: Naomie Monteiro RN) 818 (Given - Provider: Mk Stanford RN) 912 (Given - Provider: Mk Stanford RN) Continuous Medication Order 02/19/2022 02/20/2022 02/21/2022 AMIOdarone (Nexterone) (1.8 mg/mL) in dextrose (iso-osmotic) infusion 1 mg/min (33.3333 mL/hr, rounded to 33.3 mL/hr), Intravenous, CONTINUOUS, Starting on Sat02/20/22 at 0900, Until Sat02/21/22 at 1509, 1 mg/min for 6 hrs, then 0.5 mg/min for 18 hrs. After first 24 hours, order maintenance dose 0.5 mg/min. Use in-line filter. Warning Vesicant/Irritant Medication 1134 (New Bag - Provider: Mk Stanford RN)1637 (New Bag - Provider: Mk Stanford RN)1908 (Rate/Dose Change - Provider: Mk Stanford RN) 0109 (New Bag - Provider: Nancy Fleming RN)1213 (Stopped - Provider: Radha Gunn RN - Comment: per Dr. Garcia) heparin (porcine) 50 units/mL in sodium chloride 0.45% 500 mL infusion (CANCELED)(Linked Group 1) 0-5,000 Units/hr (0-100 mL/hr), Intravenous, CONTINUOUS, Starting on 02/17/22 at 2130, Until 02/19/22 at 1700, Begin infusion at 1,100 units per hr (15 units/kg/hr). Maximum initial infusion rate is 2,000 units/hr Infusion doses are rounded to the nearest 50 units. Target Heparin UFH Level (anti-Xa activity) = 0.3 - 0.7 international unit/mL Start adjustment schedule 6 hours after starting infusion. If Heparin UFH Level is: - Less than 0.1 international unit/mL: Administer PRN bolus and increase rate by 300 units per hr (4 units/kg/hr) - 0.1 - 0.19 international unit/mL: Administer PRN bolus and increase rate by 150 units per hr (2 units/kg/hr) - 0.2 - 0.29 international unit/mL: NO BOLUS and increase rate by 150 units per hr (2 units/kg/hr) - 0.3 - 0.7 international unit/mL: No change - 0.71 - 0.79 international unit/mL: NO BOLUS and decrease rate by 50 units per hr (1 units/kg/hr) - 0.8 - 0.99 international unit/mL: NO BOLUS and decrease rate by 150 units per hr (2 units/kg/hr) - Greater than or equal to 1.00 international unit/mL: Hold infusion for 60 minutes then decrease rate by 200 units per hour (3 units/kg/hr) Repeat Heparin UFH Level 6 hours after initiating heparin. Then 6 hours after each dose adjustment. When 2 consecutive Heparin UFH Level within target range of 0.3 - 0.7 international unit/mL, change Heparin UFH Level to once every 24 hours with A.M. labs while on heparin. RN to order required Heparin UFH Level - Per Protocol, Routine 0534 (New Bag - Provider: Nancy Fleming RN)0913 (Rate/Dose Verify - Provider: Naomie Monteiro RN)1251 (New Bag - Provider: Naomie Monteiro RN)1337 (Rate/Dose Change - Provider: Naomie Monteiro RN)1633 (Stopped - Provider: Naomie Monteiro RN) PRN Medication Order 02/19/2022 02/20/2022 02/21/2022 heparin (porcine) (1,000 units/mL) injection 0-8,000 Units (CANCELED)(Linked Group 1) 0-8,000 Units, Intravenous, BOLUS PER HEPARIN PROTOCOL, Starting on 02/17/22 at 2042, Until Sat02/20/22 at 0638, Per Protocol, START ADJUSTMENT SCHEDULE 6 HOURS AFTER STARTING INFUSION Bolus doses are rounded to the nearest 100 units. If Heparin UFH Level is: - Less than 0.1 international unit/mL: Bolus 70 units/kg (Maximum of 8,000 units) = Bolus 5,200 units - 0.1 - 0.19 International unit/mL: Bolus 35 units/kg (Maximum of 4,000 units) = Bolus 2,600 units - Equal to or greater than 0.2 international unit/mL: No Bolus, Routine 0535 (Given - Provider: Nancy Fleming RN) ipratropium-albuteroL (Duoneb) 0.5 mg-3 mg(2.5 mg base)/3 mL nebulizer solution 3 mL 3 mL, Nebulization, EVERY 6 HOURS PRN, Starting on 02/17/22 at 2030, Until Sat02/21/22 at 1509, Wheezing, Routine lidocaine (Xylocaine) 1% (10 mg/mL) injection 3 mg 3 mg (0.3 mL), Subcutaneous, ONCE PRN, 1 dose, Starting on 02/17/22 at 2022, Until Sat02/21/22 at 1509, for discomfort with PIV insertion, Routine nitroGLYcerin (Nitrostat) disintegrating tablet 0.4 mg 0.4 mg, Sublingual, EVERY 5 MIN PRN, Starting on 02/17/22 at 2022, Until Sat02/21/22 at 1509, Chest pain, May repeat every 5 minutes for a total of three doses. Notify provider if chest pain not relieved with nitroglycerin. Do not administer nitroglycerin if the patient has received or taken phosphodiesterase (PDE-5) inhibitors such as sildenafil, tadalafil or vardenafil within the last 24 to 72 hours., Routine sodium chloride 0.9 % (flush) (BD PosiFlush Normal Saline 0.9) flush 5-20 mL 5-20 mL, Intravenous, EVERY 1 MIN PRN, Starting on 02/17/22 at 2022, Until Sat02/21/22 at 1509, flush, Flush pertains to all indwelling lines. Flush per protocol found in the job aid using the link provided on this medication record., Routine Linked Groups Order Group 1: heparin (porcine) 50 units/mL in sodium chloride 0.45% 500 mL infusion (CANCELED)Jump to med 0-5,000 Units/hr (0-100 mL/hr), Intravenous, CONTINUOUS, Starting on 02/17/22 at 2130, Until 02/19/22 at 1700, Begin infusion at 1,100 units per hr (15 units/kg/hr). Maximum initial infusion rate is 2,000 units/hr Infusion doses are rounded to the nearest 50 units. Target Heparin UFH Level (anti-Xa activity) = 0.3 - 0.7 international unit/mL Start adjustment schedule 6 hours after starting infusion. If Heparin UFH Level is: - Less than 0.1 international unit/mL: Administer PRN bolus and increase rate by 300 units per hr (4 units/kg/hr) - 0.1 - 0.19 international unit/mL: Administer PRN bolus and increase rate by 150 units per hr (2 units/kg/hr) - 0.2 - 0.29 international unit/mL: NO BOLUS and increase rate by 150 units per hr (2 units/kg/hr) - 0.3 - 0.7 international unit/mL: No change - 0.71 - 0.79 international unit/mL: NO BOLUS and decrease rate by 50 units per hr (1 units/kg/hr) - 0.8 - 0.99 international unit/mL: NO BOLUS and decrease rate by 150 units per hr (2 units/kg/hr) - Greater than or equal to 1.00 international unit/mL: Hold infusion for 60 minutes then decrease rate by 200 units per hour (3 units/kg/hr) Repeat Heparin UFH Level 6 hours after initiating heparin. Then 6 hours after each dose adjustment. When 2 consecutive Heparin UFH Level within target range of 0.3 - 0.7 international unit/mL, change Heparin UFH Level to once every 24 hours with A.M. labs while on heparin. RN to order required Heparin UFH Level - Per Protocol, Routine And heparin (porcine) (1,000 units/mL) injection 0-8,000 Units (CANCELED)Jump to med 0-8,000 Units, Intravenous, BOLUS PER HEPARIN PROTOCOL, Starting on 02/17/22 at 2042, Until 02/20/22 at 0638, Per Protocol, START ADJUSTMENT SCHEDULE 6 HOURS AFTER STARTING INFUSION Bolus doses are rounded to the nearest 100 units. If Heparin UFH Level is: - Less than 0.1 international unit/mL: Bolus 70 units/kg (Maximum of 8,000 units) = Bolus 5,200 units - 0.1 - 0.19 International unit/mL: Bolus 35 units/kg (Maximum of 4,000 units) = Bolus 2,600 units - Equal to or greater than 0.2 international unit/mL: No Bolus, Routine documented in this encounter Care Teams Gem Setter Relationship Specialty Start Date End Date Tami Olivia [address] [place] [address] PCP - General Family Medicine 12/30/20 documented as of this encounter
--- OUTSIDE RECORDS SUMMARY | 2023-12-11 17:35 | XMS_ITS | Encounter Summary ---
Author Organization [facility] Address [facility] [place] [address] Care Team Providers Care Food Taster Name Role Phone Tami Olivia Primary Care Provider [phone] Reason for Visit * Reason Onset Date Comments Post Procedure Call 02/12/2022 Encounter Details Date Type Department Care Team (Late st Contact Info) Description 02/12/2022 Telephone Thoracic Surgery at [facility] [place] [phone] Megan Reza, RN Post Procedure Call Social [...] Telephone Encounter - Megan Reza, RN - 02/12/2022 12:03 PM ESTSummary: post op call Thoracic Surgery Nursing Post-operative Follow up: Hx: s/p L VATS Pleura biopsy 02/08/2022 POD#: 4 General statement: I am doing well. I did see bubbles on Saturday but did not see any bubbles yesterday in this tube thing. Pain: denies any pain, and not currently taking any medications. GI: appetite: good Diet: regular Hydration: good Voiding: without any difficulty BM: without any difficulty - LBM back to normal - What is the Bowel regimen: not takingany medications - reviewed that will not go longer than 2 days between BM's, verbalized understanding and readback instructions. Respiratory: not using IS as directed, reviewed at length to increase use to 10 breaths every hour while awake. He verbalized and read back instructions. SOB: denies Difficulty breathing: denies Coughing with or without sputum: denies Activity: up and about without any difficulty, denies any dizziness or lightheadedness Integumentary: Incisions without any redness, swelling, drainage, fevers, chills, sweats, site hot to touch, bruising and bleeding. Dressings changed due to drainage. Shower, wash with soap and water rinse well and pat dry. Keep open to air, unless drainage noted. [facility]/Pneumostat: ? Air leak: check for an air leak - Mr. Marquez did not understand how to check for an air leak and reviewed at length how to check. He saw many bubbles with both three coughing and three valsalva maneuvers. He will now check for his air leak at least three times a day. OUTPUT: 150 mls total - removed 60 mls in preparation for his air leak check. Plan: RTC on TBD CXR TBD Dr. Marla Nino Jimmy is aware of appointments and know to call with any questions or concerns. documented in this encounter Plan of Treatment Scheduled Procedures Name Priority Associated Diagnoses Date/Ti me ELECTROPHYSIOLOGY PROCEDURE Persistent atrial fibrillation CARDIOVERSION-ELECTIVE (WRVU 2) persistent atrial fibrillation TRANSESOPHAGEAL ECHOCARDIOGR AM (WRVU 2.3) persistent atrial fibrillation documented as of this encounter Visit Diagnoses Not on filedocumented in this encounter Care Teams Food Taster Relationship Specialty Start Date End Date Tami Olivia [address] [place] [address] PCP - General Family Medicine 12/30/20 documented as of this encounter
--- OUTSIDE RECORDS SUMMARY | 2023-12-11 17:35 | XMS_ITS | Encounter Summary ---
Author Organization [facility] [place] [address] Care Team Providers Care Embedded Software Manager Name Role Phone Tami Olivia Primary Care Provider Encounter Details Date Type Department Care Team (Latest Contact Info) Description 11/08/2021 10:25 AM EDT Laboratory Appointment Lab [address] [place] [address] Squamous cell carcinoma of left lung Social History Tobacco Use [...] Procedure Name Priority Date/Time Associated Diagnosis Comments HC HEMOGRAM Routine 11/08/2021 10:27 AM EDT Squamous cell carcinoma of left lung documented in this encounter Results * (ABNORMAL) Hemogram (11/08/2021 10:27 AM EDT) White Blood Cell 8.8 4.0 - 9.5 x10(3)/mc L [facility] Red Blood Cell 4.28(L) 4.58 - 5.54 x10(6)/mc L [facility] Hemoglobin 13.1(L) 13.7 - 16.5 g/dL [facility] Hematocrit 38.3(L) 40.5 - 48.5 % [facility] Mean Cell Volume 89.5 82.9 - 93.1 fL [facility] Mean Cell Hemoglobin 30.6 27.5 - 32.1 pg [facility] Mean Cell Hemoglobin Concentration 34.2 32.0 - 35.7 g/dL [facility] Platelet 287 145 - 357 x10(3)/mc L [facility] RDW Standard Deviation 43.4 36.0 - 45.0 fL [facility] RDW coefficient of variation 13.2 11.4 - 13.8 % [facility] Mean Platelet Volume 9.3 7.6 - 12.9 [facility] NRBC% auto 0.0 % [facility] NRBC Absolute 0.000 0.000 - 0.000 x10(3)/mc L [facility] Blood 11/08/2021 10:2 7 AM EDT 11/08/2021 10:31 AM EDT Narrative Resulting Agency Comment Spec In Lab Sloan Parker DO HEMATOLOGY ORDERABLE S [facility] [place] [address] documented in this encounter Visit Diagnoses Diagnosis Squamous cell carcinoma of left lung documented in this encounter Care Teams Embedded Software Manager Relationship Specialty Start Date End Date Tami Olivia [address] [place] [address] PCP - General Family Medicine 12/30/20 documented as of this encounter
--- OUTSIDE RECORDS SUMMARY | 2023-12-11 17:35 | XMS_ITS | Encounter Summary ---
Author Organization [facility] Address [facility] [address] [place] [id number] Care Team Providers Care Ironing Machine Operator Name Role Phone Tami Olivia Primary Care Provider [phone] Reason for Visit * Auth/Cert (Routine) Specialty Diagnoses / Procedures Referred By Bert gautam Referred To Contact Diagnoses Pleural effusion, not elsewhere classified Malignant neoplasm of unspecified part of left bronchus or lung pleural effusion Procedures PRO THORACOSCOPY WITH BIOPSY OF PLEURA PRO BRONCHOSCOPY, DIAGNOSTIC THORACOSCOPY; WITH BIOPSY(IES) OF PLEURA (WRVU 4.58) BRONCHOSCOPY, DIAGNOSTIC (WRVU 2.78) Gilmer Foster MD [facility] [place] [address] [facility] Referral ID Status Reason Start Date Expiration Date Visits Re quested Visits Authorized [id number] 1 1 Encounter Details Date Type Department Care Team (Late st Contact Info) Description 02/08/2022 12:15 PM EST - 02/08/2022 3:16 PM EST [place] [address] Gilmer Foster MD [facility] [address] THORACOSCOPY; WITH BIOPSY(IES) OF PLEURA (WRVU 4.58) Social History Tobacco Use Types Packs/Day Years Used Date Smoking Tobacco: Some Days Cigarettes Smokeless Tobacco: Never Tobacco Cessation:Ready to Q uit: Not Asked; Counseling Given: Not Answered Comments:1 ppd for the past year Sex and Gender Information Value Date Recorded Sex Assigned at Not on file Gender Identity Not on file Sexual Orientation Not on file documented as of this encounter Last Filed Vital Signs Vital Sign Reading Time Taken Comments Blood Pressure 135/73 02/08/2022 3:15 PM EST Pulse 60 02/08/2022 3:15 PM EST Temperature 36.8 ??C (98.2 ??F) 02/08/2022 1:56 PM ES T Respiratory Rate 16 02/08/2022 3:15 PM EST Oxygen Saturation 100% 02/08/2022 3:15 PM EST Inhaled Oxygen Concentration - - Weight 75.8 kg (167 lb) 02/08/2022 11:10 AM EST Height 172.7 cm (5' 8) 02/08/2022 11:10 AM EST Body Mass Index 24.57 02/08/2022 11:10 AM EST documented in this encounter Discharge Summaries * Camilo Stevenson PA - 02/10/2022 8:19 AM EST Department of Thoracic Surgery - Discharge Summary Patient Name: Rajan Marquez Patient Age: 71 y.o. Birthdate: 1950 Admit date: 02/08/2022 Discharge date: 02/10/2022 Attending Physician: Gilmer Foster MD Discharge Diagnoses (Hospital Problems) and Secondary Diagnoses (Chronic Problems): Active Hospital Problems Diagnosis ??? Pleural effusion Resolved Hospital Problems No resolved problems to display. Active Non-Hospital Problems Diagnosis ??? Mass of upper lobe of left lung ??? ADHD ??? COPD (chronic obstructive pulmonary disease) ??? Depression ??? Lupus anticoagulant positive ??? Palpitations ??? Tobacco abuse ??? Unspecified osteoarthritis, unspecified site Operations/Major Procedures: Operations: Case Date: 02/08/2022 Surgeon: Surgeon(s) and Role: * Gilmer Foster MD - Primary * Malia Nieto MD - Resident Procedure: Procedure(s): THORACOSCOPY; WITH BIOPSY(IES) OF PLEURA (WRVU 4.58) BRONCHOSCOPY, DIAGNOSTIC (WRVU 2.78) Other Major Procedures: n/a History of Presentation: Rajan Marquez is a 71 y.o. male who underwent thoracoscopic left upper lobectomy who has developed a new left sided pleural effusion. ??This is subsequently been drained twice with negative cytology but has recurred on each occasion. Hospital Course: Rajan Marquez was admitted to [facility] on 02/08/2022 via the SD. He was brought to the operating room on 02/08/[address] Gilmer Foster performed surgery as described above. He tolerated the procedure well and was brought to the Post Anesthesia Care Unit for recovery. After a brief period of time he was transferred to the floor for continued rehabilitation. The right chest tube was noted to have an intermittent 1 column air leak post-operatively. On POD1 the chest tube was placed to water seal. A chest x-ray the following morning on POD2 revealed enlarging left hydropneumothorax. The right chest tube was placed to a mini-atrium on POD2. By postoperative day # 2 he had met all criteria for discharge to home. Pain was controlled on oral medications. He had walked 5 minutes. He was tolerating a regular diet and was passing gas. Vital signs: Vital Signs Temp: 36.7 ??C (98.1 ??F) Temp src: Oral Heart Rate from SpO2: 62 bpm Heart Rate: 64 Heart Rate Source: Monitor Resp: 16 BP: 133/84 MAP (NBP): 84 mmHg BP Method: Automatic Patient Position: Lying SpO2: 96 % O2 Flow Rate (L/min): 5 L/min O2 Device: None (Room air) Admission Wt: 75.75 kg Last Wt: Wt Readings from Last 3 Encounters: 02/10/22 73.3 kg (161 lb 9.6 oz) 01/29/22 73.5 kg (162 lb 0.6 oz) 10/30/21 75.4 kg (166 lb 3.2 oz) Pertinent physical exam findings prior to discharge: Gen: NAD, pleasant, sitting HEENT: normocephalic, atraumatic, EOMI, sclerae anicteric Card: RRR Pulm: CTAB, no wheeze/ronchi/rales appreciated, non-labored breathing on RA, left CT connected to mini-atrium with 1 column intermittent air leak with valsalva Abd: soft, NT, BS+ Ext: warm, dry, no edema Neuro: A&Ox3, CN II-XII grossly intact, nonfocal, conversant Important Lab Data: Lab Results Component Value Date WBC 8.8 11/08/2021 HGB 13.1 (L) 11/08/2021 HCT 38.3 (L) 11/08/2021 MCV 89.5 11/08/2021 Lab Results Component Value Date NA 137 04/01/2021 K 4.3 04/01/2021 CL 104 04/01/2021 CO2 21 (L) 04/01/2021 Lab Results Component Value Date CREATININE 1.11 01/29/2022 Lab Results Component Value Date BUN 22 (H) 04/01/2021 No results found for: PREALBUMIN No results for input(s): PT, PTT, INR in the last 168 hours. Studies: Results for orders placed or performed during the hospital encounter of 02/08/22 XR Chest One View (Exam End: 02/08/2022 2:37 PM) Impression Left-sided chest tube with expected position, moderate left-sided hydropneumothorax, overall volume of fluid is similar to the prior comparison CT. Thank you for letting us participate in the care of this patient. If you are a health care provider and have any questions regarding this report, please contact the number below. For patients who have questions please contact the health pet care associate that requested your imaging first. Chest PA & Lateral (Generic) (Exam End: 02/10/2022 5:23 AM) Impression Enlarging left hydropneumothorax. Thank you for letting us participate in the care of this patient. If you are a health care provider and have any questions regarding this report, please contact the number below. For patients who have questions please contact the health pet care associate that requested your imaging first. Electronically signed by: Maryann Magallanes MD, [facility] ([phone]), at 02/10/2022 8:05 AM Pending Studies and Lab Data: No current labs Discharge Conditions/Prognosis: Stable Discharge to: Home Discharge Medications: Your Medications New Medications Dose Details acetaminophen 500 mg Tab Commonly known as: Tylenol Take 2 tablets by mouth every 6 hours. 1,000 mg Quantity: 30 tablet Refills: 1 docusate sodium 100 mg Cap Commonly known as: Colace Take 1 capsule by mouth 3 times daily for 10 days. 100 mg Quantity: 20 capsule Refills: 0 senna 8.6 mg Tab Commonly known as: Senokot Take 1 tablet by mouth every evening. 1 tablet Quantity: 60 tablet Refills: 11 Continued medications, unchanged Dose Details cholecalciferol 1,000 unit Tab Commonly known as: Vitamin D3 Take 1 tablet by mouth daily. 1 tablet Refills: 0 fluticasone furoate-vilanteroL 200-25 mcg/dose Dsdv Commonly known as: Breo Ellipta Inhale 1 puff into the lungs Daily. 1 puff Refills: 0 hydrOXYchloroQUINE 200 mg Tab Commonly known as: Plaquenil Take 200 mg by mouth Daily. 200 mg Refills: 0 lisinopriL 10 mg Tab Commonly known as: Zestril Take 10 mg by mouth daily. 10 mg Refills: 0 metoprolol succinate XL 25 [...] NEEDED. MAXIMUM DAILY DOSE 2 Refills: 0 tamsulosin 0.4 mg Cap Commonly [...] a nurse in the Thoracic Clinic at [phone]. After hours or on weekends or holidays please call: [phone] and ask to speak to the Thoracic Surgeon on c all. Exercise & Activity Level: As you recover [...] between activities as you recoverfrom your procedure. Diet: You should follow a regular diet. Smoking: If you are a smoker, please avoid smoking. If you are a smoker who needs help quitting, please call the thoracic surgery clinic at [phone]. Driving: No driving for 1 week or while taking narcotic pain medication. New Medications: No new medications. Please continue to take your home medications as prescribed. Take scheduled tylenol for pain. Shower/Bath: You may shower daily starting 2 [...] by 10 days, you may remove them. Pain: Pain after surgery is normal. The [...] the Thoracic Clinic or the Thoracic Surgeon circulation supervisor after hours. Please take over the counter Tylenol 1000mg every 6 hours for baseline pain coverage. Do not exceedmaximum dose on bottle. I If you were not prescribed narcotic pain medication and your pain is not well controlled with Tylenol please call our office during business hours. Non-pharmacological treatment such as ice, elevation and activity modification have been recommended as appropriate. Sleep: Try to establish normal sleep patterns. [...] have a bowel movement formore than 2 days, please call the office. Follow up appointments: Please call the Thoracic Surgery Office once the air leak has resolved in your chest tube. Call our office if you have any questions. [phone] Future Appointments Date Time Provider Department Center 02/10/2022 5:00 AM [facility] DX ROOM 9 Xray [facility] Rad General Instructions Keep the Express Mini in an upright position and make sure the tubing stays firmly attached to the end of your chest tube. If it becomes disconnected you will need to reconnect it immediately and tape it securely. If you cannot get it reconnected you will need to go to the Emergency Room at [facility] immediately. Be sure to not let the tube become kinked as this will makeit impossible for the air in your chest to escape safely via the tube. Check the Atrium Express Mini 500 daily for an air leak by tipping it up and observing for bubbles in the top left corner, as demonstrated while you were in the hospital. If you need to remove the drainage from the Express Mini you can either follow the instructions on the brochure provided with the Mini and empty via the tubing, or use a Leur-lock syringe to empty the chamber. This can be done every several days or daily if necessary. Do not allow the collection chamber to completely fill withfluid or it may start to leak out. Please record the amount removed and contact Dr. Gilmer Cardozo office at [phone] if the amount increases by 200 cc or more from one day to the next.Please contact the surgeon's office if the air leak has stopped prior to your scheduled appointment. You will need to have the chest tube dressings changed every other day and as needed. The visiting nurse can assist you with this. To shower you must keep the Atrium Express Mini collection device OUT of the shower and water. Remove all the dressings at the chest tube insertion site and shower as usual, cleansing around this area with soap and water, rinse well. You should be careful to not pull or tug on the tube. After your shower, dry the insertion area well and apply a fresh dressing. You will likely need a family memberor the VN to help you with the fresh dressing. Date: Time: Drainage Amount: Air leak YES OR NO If the drainage character changes and becomes thick green or yellow, or if the device has come off the chest tube and you have had to replace it, contact the Thoracic Surgery office promptly at [phone]. Opioid PDMP 02/13/2021 [place] PDMP Query Date 04/01/2021 [place] PDMP Query Date 04/01/2021 [place] PDMP Query Date 04/01/2021 Rajan Marquez is being prescribed a prescription [...] to medical records for scanning to chart. Future Appointments and Orders Future Orders Complete By Expires XR Chest PA & Lateral (Generic) [[id number] Custom] 02/23/2022 08/25/2022 Process Instructions: Scheduling Instructions: Questions: Reason for exam and clinical history: s/p left VATS pleural biopsy Clinical information / bryan questions for radiologist: ?interval change Where will study be performed?: [facility] Radiology Portable exam?: Stat read required?: Date of injury if applicable: Requested Time: XR Chest PA & Lateral (Generic) [[id number] Custom] 02/24/2022 (Approximate) 08/26/2022 Process Instructions: Scheduling Instructions: Questions: Reason for exam and clinical history: s/p left vats pleural biopsy Clinical information / bryan questions for radiologist: eval for ptx and or effusion Where will study be performed?: [facility] Radiology Portable exam?: Stat read required?: Date of injury if applicable: Requested Time: Referral to Home Health [REF34 Custom] As directed Process Instructions: If no progress note charted, please enter Clinical details in comments. Scheduling Instructions: Comments: Please evaluate Rajan Marquez for admission to Home Health. [address] [facility] [address] Phone Number: Date of : 1950 Inpatient DOCUMENTATION FOR VNA SERVICES (INCLUDING THOSE PATIENTS WITH MEDICARE COVERAGE REQUIRING HOME VNA SERVICES AND/OR HOSPICE SERVICES) PATIENT'S LOCATION: Rajan Marquez [address] [facility] [address] Geochemical Laboratory Technician's Name: self/family In discussion with the attending physician, it is certified that this patient is under their care and that they, or a Nurse Practitioner,Clinical Nurse specialist or Physician Crabbing Machine Operator who is working directly with them, had a face to face encounter that meets the physician face to face encounter requirements with this patient on 02/10/22 The encounter with the patient was in whole, or in part, for the following medical condition, whichis the primary reason for home health care services: Mini Atrium Service In discussion with the provider, it is certified that, based on their findings, the following services are medically necessary for home health services. To provide the following care/treatments with the clinical findings supporting the need for services as follows: HOME CARE ORDERS: RN ORDERS: Assess wound or incision, vital signs, cardiopulmonary status, nutrition, hydration, elimination, meds effectiveness and management; reinforce education re health issues Express Mini Care: Keep the Express Mini in an upright position and make sure the tubing stays firmly attached to the end of your chest tube. If it becomes disconnected you will need to reconnect it immediately and tape it securely. If you cannot get it reconnected you will need to go to the local Emergency Room or the Emergency Room at [facility] immediately. Check the Atrium Express Mini 500 daily for an air leak by tipping it up and observing for bubbles in the top left corner, as demonstrated while you were in the hospital. If you need to remove the drainage from the Express Mini you can either follow the instructions on the brochure provided with the Mini and empty via the tubing, or use a Leur-lock syringe to empty the chamber. This can be done every several days or daily if necessary. Do not allow the collection chamber to completely fill with fluid or it may start to leak out. Please record the amount removed and contact Dr. Foster's office at if the amount increases by 200cc or more from one day to the next. Please contact his office if the air leak has stopped prior to your scheduled appointment. HOME HEALTH CARE AGENCY: [facility] [address] [facility] [address] PHONE: [phone] FAX: [phone] Start of care: within 24 to 48 hours of discharge Please note that any additional orders needs or changes will need to be obtained from this patient's PCP: Tami ALTMAN [address] / [place] [id number] All VNA agencies which cover the area of patient's residence have been reviewed, either verbally crow writing, and patient/family have chosen the home health care agency noted Questions: Disciplines Requested: Nursing Provider Contact Information: Primary Care Provider: Tami Olivia [phone] Discharge References/Attachments: Discharge References/Attachments None For questions regarding this document or issues relating to this hospitalization on the Thoracic Surgery Service, please contact Dr. Foster's office at . Signed: STEVE Black 02/10/2022 Thoracic Surgery [facility] CC: PCP: Tami Olivia Referring: Tami Olivia [address] [place] [address] documented in this encounter Discharge Instructions * Discharge Instructions* Camilo Stevenson PA - 02/10/2022 8:30 AM EST Keep the Express Mini in an upright position and make sure the tubing stays firmly attached to the end of your chest tube. If it becomes disconnected you will need to reconnect it immediately and tape it securely. If you cannot get it reconnected you will need to go to the Emergency Room at [facility] immediately. Be sure to not let the tube become kinked as this will makeit impossible for the air in your chest to escape safely via the tube. Check the Atrium Express Mini 500 daily for an air leak by tipping it up and observing for bubbles in the top left corner, as demonstrated while you were in the hospital. If you need to remove the drainage from the Express Mini you can either follow the instructions on the brochure provided with the Mini and empty via the tubing, or use a Leur-lock syringe to empty the chamber. This can be done every several days or daily if necessary. Do not allow the collection chamber to completely fill withfluid or it may start to leak out. Please record the amount removed and contact Dr. Gilmer Fosters office at if the amount increases by 200 cc or more from one day to the next.Please contact the surgeon's office if the air leak has stopped prior to your scheduled appointment. You will need to have the chest tube dressings changed every other day and as needed. The visiting nurse can assist you with this. To shower you must keep the Atrium Express Mini collection device OUT of the shower and water. Remove all the dressings at the chest tube insertion site and shower as usual, cleansing around this area with soap and water, rinse well. You should be careful to not pull or tug on the tube. After your shower, dry the insertion area well and apply a fresh dressing. You will likely need a family memberor the VN to help you with the fresh dressing. Date: Time: Drainage Amount: Air leak YES OR NO If the drainage character changes and becomes thick green or yellow, or if the device has come off the chest tube and you have had to replace it, contact the Thoracic Surgery office promptly at [phone]. * Patient Instructions* Camilo Stevenson PA - 02/09/2022 11:12 AM EST Call if you have a fever of greater than 101 degrees, shaking chills, develop redness or drainage from your incision site(s), or if you have questions. During normal business hours, Saturday- Saturday 8:00 a.m.-5:00 p.m., please call to speak to a nurse in the Thoracic Clinic at [phone]. After hours or on weekends or holidays please call: [phone] and ask to speak to the Thoracic Surgeon on c all. Exercise & Activity Level: As you recover [...] between activities as you recoverfrom your procedure. Diet: You should follow a regular diet. Smoking: If you are a smoker, please avoid smoking. If you are a smoker who needs help quitting, please call the thoracic surgery clinic at [phone]. Driving: No driving for 1 week or while taking narcotic pain medication. New Medications: No new medications. Please continue to take your home medications as prescribed. Take scheduled tylenol for pain. Shower/Bath: You may shower daily starting 2 [...] by 10 days, you may remove them. Pain: Pain after surgery is normal. The [...] the Thoracic Clinic or the Thoracic Surgeon circulation supervisor after hours. Please take over the counter Tylenol 1000mg every 6 hours for baseline pain coverage. Do not exceedmaximum dose on bottle. I If you were not prescribed narcotic pain medication and your pain is not well controlled with Tylenol please call our office during business hours. Non-pharmacological treatment such as ice, elevation and activity modification have been recommended as appropriate. Sleep: Try to establish normal sleep patterns. [...] have a bowel movement formore than 2 days, please call the office. Follow up appointments: Please call the Thoracic Surgery Office once the air leak has resolved in your chest tube. Call our office if you have any questions. [phone] Future Appointments Date Time Provider Department Center 02/10/2022 5:00 AM [facility] DX ROOM 9 Xray [facility] Rad documented in this encounter Medications at Time of Discharge Medication Sig Dispensed Refills Start Date End Date Spiriva Respimat 2.5 mcg/actuation Mist 01/26/2022 acetaminophen [...] daily. 11/01/2014 docusate sodium (Colace) 100 mg Capsule Take 1 capsule by mouth 3 times daily for 10 days. 20 capsule 02/10/2022 02/17/2022 senna (Senokot) 8.6 mg Tablet Take 1 tablet by mouth every evening. 60 tablet 11 02/10/2022 02/17/2022 rivaroxaban (Xarelto) 20 mg Tablet Take 20 [...] as of this encounter Progress Notes * Malia Paredes RN - 02/10/2022 1:16 PM EST [facility] Short Stay Unit Discharge Note All relevant discharge milestones have been met by the patent. After Visit Summary and discharge teaching reviewed with the patient. IV access has been discontinued. All personal belongings have been returned to the patient/family upon their departure from the unit. Patient has been discharged to home The patient has been discharged without VNA services. * Juidth Del Angel RN - 02/09/2022 11:04 AM EST Report from Debbie. Arrived to room. CT to water seal with small, known, intermittent air leak. CT dressing with scant sanguineous drainage, L back dsg c/d/i. Oriented to room and placed on monitoring system. Awaiting lunch meal. WC. * Bi Baez MD - 02/09/2022 8:53 AM EST [facility] Department of Thoracic Surgery Inpatient Progress Note Patient Name: Rajan Marquez Patient : 1950 Patient Patient Location: [address] Attending Surgeon: GILMER FOSTER ID: Rajan Marquez is a 71 y.o. male who is 1 Day Post-Op s/p LEFT VATS pleural biopsy 24 Hour Events / Subjective: - NAEON - Chest tube with stable intermittent 1 column air leak - Doing well, does not wish to d/c with chest tube in and likely will stay through tomrorrow Vitals: Temp: [36.6 ??C (97.9 ??F)-36.9 ??C (98.4 ??F)] Heart Rate: [51-60] Resp: [12-20] BP: (114-154)/(61-76) SpO2: [96 %-100 %] Heart Rate from SpO2: [52 bpm-64 bpm] Wt & BMI By Encounter Date Flowsheet Row Admission (Current) from 02/08/2022 [facility] OfficeVisit from 01/29/2022 in Thoracic Surgery at [facility] Weight 75.8 kg (167 lb) 1 02/08/2022 1110 73.5 kg (162 lb 0.6 oz) 1 01/29/2022 1410 BMI 25.39 1 02/08/2022 1110 24.05 1 01/29/2022 1410 Physical Exam: Gen: NAD, pleasant, sitting HEENT: normocephalic, atraumatic, EOMI, sclerae anicteric Card: RRR Pulm: CTAB, no wheeze/ronchi/rales appreciated, non-labored breathing on RA, left CT: to -20 sxn with intermittent 1 column airleak appreciated, serosang output Abd: soft, NT, BS+ Ext: warm, dry, no edema Neuro: A&Ox3, CN II-XII grossly intact, nonfocal, conversant I/O: I/O last 3 completed shifts: In: 1120 [P.O.:220; I.V.:900] Out: 1624 [Urine:1450; Other:162; Blood:12] Chest tube: left side, 162cc total, 127 cc overnight, n/a from yesterday Labs: Recent Results (from the past 72 hour(s)) Fungus culture Pleural Fluid Specimen: Pleural Fluid Pleural fluid Result Value Ref Range Fungus Culture No Fungus isolated to date Body Fluid Culture, Aerobic Specimen: Pleural Fluid Pleural fluid Result Value Ref Range Body Fluid Culture No growth to date. Gram Stain Cytocentrifuge Gram Stain performed No Neutrophils seen. No microorganisms seen. Surgical Pathology Report Result Value Ref Range Surgical Pathology Report [id number] Location: OR; OR22; A The signing pathologist has (i) examined the relevant preparation(s) for the specimen(s) and (ii) rendered or confirmed the diagnosis(es). . Frozen Section FROZEN SECTION DIAGNOSIS AFS - Left pleural biopsy, for frozen section (2 blocks): Atypical cells, cannot exclude malignancy, defer to permanent. 02/08/22 13:26 Electronically signed by: Malia Lacy MD Verified: 02/08/2022 13:50 Pathologist Performed at: -[facility] [place] Dept[place], [place] [address] Help Desk Operator: Maria Ines Marrufo MD, FCAP, CLIA Certificate: [id number] This intraoperative consultation should be interpreted as a preliminary diagnosis pending review of the entire specimen and special studies, if any. A final Surgical Pathology report will follow this preliminary Frozen Section report(s). Diagnostics: Results for orders placed or performed during the hospital encounter of 02/08/22 XR Chest One View (Exam End: 02/08/2022 2:37 PM) Impression Left-sided chest tube with expected position, moderate left-sided hydropneumothorax, overall volume of fluid is similar to the prior comparison CT. Thank you for letting us participate in the care of this patient. If you are a health care provider and have any questions regarding this report, please contact the number below. For patients who have questions please contact the health pet care associate that requested your imaging first. Micro: Procedure Component Value Units Date/Time Fungus culture Pleural Fluid [[id number]] Collected: 02/08/22 1254 Lab Status: Preliminary result Specimen: Pleural Fluid Updated: 02/09/22 0817 Fungus Culture No Fungus isolated to date Body Fluid Culture, Aerobic & Anaerobic Pleural Fluid [[id number]] Collected: 02/08/22 1254 Lab Status: Preliminary result Specimen: Pleural Fluid Updated: 02/09/22 0743 Body Fluid Culture, Aerobic [[id number]] Collected: 02/08/22 1254 Lab Status: Preliminary result Specimen: Pleural Fluid Updated: 02/09/22742 Body Fluid Culture No growth to date. Gram Stain -- Cytocentrifuge Gram Stain performed No Neutrophils seen. No microorganisms seen. Assessment: Rajan Marquez is a 71 y.o. male who is 1 Day Post-Op s/p LEFT VATS pleural biopsy. Doing well post-operatively. Chest tube to water seal on 02/09. Does not wish to d/c with chest tube in and likely will stay through tomorrow, will evaluate chest tube output and air leak throughout the course of today and tomorrow. Plan: Neuro: Tylenol kenrick Card: Toprolol XL 25', Lisinopril 10mg, Monitor vital signs Pulm: OOB, ambulation, ISC, cough, deep breathing, CT to waterseal FENGI: regular diet, bowel regimen, protonix Renal/: monitor urine output, Flomax Heme: Plaquenil ID: SHELLEY Endo: SHELLEY Other: N/A PPx: SCDs Dispo: TBD, possible discharge 02/10. May need VNA for [facility] if air leak not resolved Bi Baez MD 02/09/2022 Thoracic Surgery Service Pager [phone] * Debbie Pride RN - 02/09/2022 8:44 AM EST 0700: Report received from CHRISTINA Mcneal. Pt resting in bed, reporting no pain or nausea. Chest tube to water seal- air leak present. Chest tube dressing with moist serosanguinous drainage, dressing reinforced and team made aware. Pt walked 2 laps around pacu with this RN with no adverse s/s. VSS. 0930: Pt walking unit independently. 1030: Thoracic resident at bedside. No new orders. Report called to CHRISTINA Del Angel. * Elizabet Enrique RN - 02/08/2022 10:32 PM EST 2200: Report received from CHRISTINA Zapien. Pt A&Ox4, VSS on RA. Left CT to -20 LCWS; intermittent airleak. 0630: Pt resting comfortably overnight. Pain well controlled with PO Tylenol. Left CT to -20 LCWS, dressing is CDI. 0700: Report given to REFINING STILL OPERATORDebbie VASQUEZ. Care assumed. * Juanita Sotomayor RN - 02/08/2022 5:45 PM EST 17:45 Break coverage. Pt reports he is comfortable and has no needs at this time. Awaiting inpatient assignment. documented in this encounter H&P Notes * Malia Nieto MD - 02/08/2022 11:30 AM EST Thoracic Surgery Preop NAME: Rajan Maruqez DATE: 02/08/22 SURGEON: GILMER FOSTER PROCEDURE: Left VATS pleural biopsy, possible pleurodesis, bronchoscopy BRIEF HISTORY: Rajan Marquez is a 71 y.o. male who underwent thoracoscopic left upper lobectomy whohas developed a new left sided pleural effusion. This is subsequently been drained twice with negative cytology but has recurred on each occasion. The patient reports no interval change. There has been no interval medical illness or hospitalizations. Questions have been addressed. Smoking HX: Social History Tobacco Use Smoking Status Some Days ??? Years: 50.00 ??? Types: Cigarettes Smokeless [...] IR Thoracentesis Left 11/08/2021 Ramírez Ramirez MD [facility] INTERVENTIONL RAD ??? PRO BRONCHOSCOPY, DIAGNOSTIC N/A 03/29/2021 BRONCHOSCOPY, DIAGNOSTIC (WRVU 2.78) performed by Gilmer Foster MD at [facility] MAIN OR ? ? PRO INJECTION ANES AGENT &/ STEROID INTERCOSTAL NERVE SINGLE LEVEL Left 03/29/2021 NERVE BLOCK, INTERCOSTAL NERVE (WRVU 1.18) performed by Gilmer Foster MD at [facility] OR ??? PRO THORACOSCOPY SURG LOBECTOMY Left 03/29/2021 @THORACOSCOPY,SURGICAL,W\LOBECTOMY,TOTAL OR SEGMENTAL (WRVU 24.64) performed by Johana Foster MD at [facility] OR ??? PRO THORACOSCOPY WITH MEDIASTINAL AND REGIONAL LYMPHADENECTOMY 03/29/2021 @THORACOSCOPY, SURG; W/MEDIASTINAL& REGIONAL LYMPHADENECTOMY (WRVU 4.12) performed by Gilmer Foster MD at [facility] OR ??? PRO THORACOSCOPY WITH WEDGE RESECTION AND ANATOMIC LUNG RESECTN Left 03/29/2021 @THORACOSCOPY, SURG; W/DX WEDGE RESC W/ANATOMIC LUNG RESC (WRVU 3) performed by Johana Foster MD at [facility] OR MEDS: No current facility-administered medications on file prior to encounter. Current Outpatient Medications on File Prior to Encounter Medication Sig Dispense Refill ??? rivaroxaban (Xarelto) 20 mg Tablet Take [...] Take 200 mg by mouth Daily. ??? sildenafiL (VIAGRA) 50 mg Tablet TAKE 1/2 TO 1 TABLET BY MOUTH 30 MINUTES PRIOR TO SEXUAL ACTIVITY NEEDED. MAXIMUM DAILY DOSE 2 ??? UNABLE TO FIND Cbd gummies to help with smoking cessation. ??? fluticasone furoate-vilanteroL (Breo Ellipta) 200-25 mcg/dose Disk with Device Inhale 1 puff into the lungs Daily. ??? albuterol sulfate (Proair Digihaler) 90 mcg/actuation aero powdr breath act w/sensor 4 times daily as needed. ??? cholecalciferol, Vitamin D3, (Vitamin D3) 1,000 unit Tablet Take 1 tablet by mouth daily. ALL: Allergies Allergen Reactions ??? Cat Dander Runny eyes and nose ??? Dog Dander Runny eyes and nose Physical Exam Patient Vitals for the past 24 hrs: Temp Pulse Resp BP SpO2 O2 Device 02/08/22 1110 36.6 ??C (97.9 ??F) 60 18 154/76 100 % RA Gen: NAD, pleasant, sitting up in bed HEENT: normocephalic, atraumatic, EOMI, sclerae anicteric Neck: supple, trachea midline Card: RRR, no M/R/G appreciated Pulm: CTAB, no wheeze/ronchi/rales appreciated, non-labored breathing on RA Abd: soft, NT, BS+ Ext: warm, dry, no edema Neuro: A&Ox3, CN II-XII grossly intact, nonfocal, conversant Site marking: LEFT chest LABS: Lab Results Component Value Date WBC 8.8 11/08/2021 RBC 4.28 (L) 11/08/2021 HGB 13.1 (L) 11/08/2021 HCT 38.3 (L) 11/08/2021 MCV 89.5 11/08/2021 MCH 30.6 11/08/2021 MCHC 34.2 11/08/2021 PLATELET 287 11/08/2021 RDWCV 13.2 11/08/2021 Lab Results Component Value Date/Time NA 137 04/01/2021 03:59 AM K 4.3 04/01/2021 03:59 AM CL 104 04/01/2021 03:59 AM CO2 21 (L) 04/01/2021 03:59 AM BUN 22 (H) 04/01/2021 03:59 AM CREATININE 1.11 01/29/2022 11:45 AM Assessment/Plan: Rajan Marquez is a 71 y.o. male presenting today for planned LEFT VATS pleural biopsy, possible pleurodesis and bronchoscopy. Consent signed and confirmed in chart. Questions addressed. Will proceed with planned surgery. Malia Nieto MD 02/08/2022 Thoracic Surgery Service Pager [phone] documented in this encounter Miscellaneous Notes * Care Management Discharge - Gilmer Sims RN - 02/10/2022 8:32 AM EST CARE MANAGEMENT FINAL DISCHARGE NOTE Chart reviewed, care reviewed with primary team and at interdisciplinary rounds. Patient is medically ready for discharge to home. Needs for Transition of Care: Plan for discharge is: Home w/ Services Outpatient Agency/Support Group Needs: None Home Health Services: Registered Nurse, Wound care, Home with [facility]. Agency Referrals & Follow-up Care: Contact information for follow-up Home Health & Hospice, [address] [facility] [address] Transportation: family or friend will provide Wheelchair van/Ambulance? No Functional status prior to admission: Independent Home Environment: Others in the home: significant other. Current Living Arrangements: home/apartment/condo. Accessibility Concerns:none noted. Current Functional Ability: DME used at home: none DME Needed at Discharge: [facility] Patient is insured through: Primary Insurance: [employer] MANAGED MEDICARE Payor: AAR MANAGED MEDICARE / Plan: [facility] / Product Type: *No Producttype* / Secondary Insurance: N/A Prescription Coverage: Yes This plan was formulated with input from patient, and team. All are in agreement with plan. Natanael Sims RN, BSN Case Management [phone] * Care Management - Melania Salinas RN - 02/09/2022 2:26 PM EST RN/CM has reviewed with provider team. Admit: 02/08/2022 with anticipated discharge: 02/10/2022. Pt remains OBS status at this time. Pending review later today. Christie Pascal) CHRISTINA Salinas RN/CM - Cellphone: [phone] Pager: [phone] Covering Service RN/LACEY * Initial Assessments - Melania Salinas RN - 02/09/2022 7:56 AM EST Office of Care Management Initial Assessment Melania Salinas RN reviewed record and discussed patient with Care Team. Source of Information: Team, bedside nurse, medical record, Patient and Chart Review Introduced self/reviewed role; services accepted. Reason for Hospitalization: Admit Dx: Pleural effusion Surgery date: 02/08 s/p Thoracoscopy and Bronch; loculated pleural effusion Covid Vaccination Status: Last COVID test: Lab Results Component Value [...] surrogate would be surrogate decision maker per [place] surrogate decision making law. (Only good for 180 days) Any patient receiving care in [place] must abide by [place] law. The hierarchy for surrogate decision making [...] (i) The agent with financial power of deputy prosecuting attorney or a conservator appointed in accordance with RSA 464-A. (j) The guardian of the patient???s estate. Advance Care Planning: Attempt Cardiopulmonary Resuscitation - Inpatient <no information> -Advanced Directive: Other (Surrogacy: Eleanor Prado (Significant)) Current Coping/Education/Information Needs: post-op care; dc planning Current Functional Ability: unable to assess (not out of bed yet) Functional Status Prior to Admission: Independent Prior ADLs & IADLs: Independent with all ADLs & IADLs Home Environment: Others in the home: significant other. Current Living Arrangements: home/apartment/condo. Accessibility Concerns:none noted. Resource / Environmental Concerns: Resource/Environmental Concerns: none Current DME: none Home Address confirmed as: [address] [place] [phone] Social & Family Supports: All names listed below confirmed with patient as current and correct Extended Emergency Contact Information Primary Emergency Contact: ELEANOR PRADO Mobile Relation: Significant Other Current Care Provided by: self Provides Primary Care For: no one Caregiver if needed: significant other Quality of Family relationships: supportive Community Resources being provided currently: none Behavioral Health History: Depression Substance Use/Abuse listed: Social History Tobacco Use Smoking Status Some Days ??? Years: 50.00 ??? Types: Cigarettes Smokeless Tobacco Never Tobacco Comments 1 ppd for the past year 0 No problems reported 1-2 Low level 3-5 Moderate level 6-8 Substantial level 9- 10 Severe level 0 to 7 points: Low risk 8 to 15 points: Medium risk 16 to 19 points: High risk 20 to 40 points: Addiction likely Health/Prescription Coverage: Primary Insurance: [facility] MANAGED MEDICARE Payor: AARP MANAGED MEDICARE / Plan: [facility] MANAGED MEDICARE COMPLETE / Product Type: *No Producttype* / Secondary Insurance: N/A ; Prescription Coverage: Yes Preferred Pharmacy: [id number] - [place], [place] - [address] [place] [id number] [place] Status: Patient is a : No Primary Care Provider listed: Tami Olivia [phone] Patient/Caregiver Goals of Treatment: Return home with VNA services - RN and [facility] - if needs to be dc'd with CT in place. Potential Needs for Transition of Care: home health care Agency Referrals: The Patient has been provided a list of Home Health Agencies/DME vendors which serve their preferred geographic area. A letter describing our affiliations was reviewed with them and they were educated about their right to choose where referrals are placed. Patient requests referral to : [facility] [place] [address] PHONE: [phone] FAX: [phone] Expected date of discharge: 02/09/2022 vs 02/10/2022 Referral routed to the Shirring Machine Operator for matching with agency/vendor and to provide any required information. Transportation: no concerns Transportation Anticipated: family or friend will provide Concerns to be Addressed: discharge planning Assessment: Patient is admitted to Thoracic service for surgery Plan: A member of the Care Management team will continue to monitor progress, follow for continuityof care and assist with transition of care planningCecilia Salinas RN (Jonas) RN/CM - Cellphone: [phone] Pager: [phone] Covering Service RN/CM * Op Note - Gilmer Foster MD - 02/08/2022 12:40 PM EST [facility] [place] Note Patient Name: Rajan Marquez : [id number] MR#: [id number] Case Date: 02/08/2022 Surgeon: Surgeon(s) and Role: * Gilmer Foster MD - Primary * Malia Nieto MD - Resident Preoperative diagnosis: pleural effusion Postoperative diagnosis: pleural effusion Procedure(s) (LRB): THORACOSCOPY; WITH BIOPSY(IES) OF PLEURA (WRVU 4.58) (Left) BRONCHOSCOPY, DIAGNOSTIC (WRVU 2.78) (N/A) Findings: Dense pleural rind with associated loculated pleural effusion Anesthesia: General Estimated Blood Loss: 12 mL Specimens removed during surgery: Order Name Source Comment Collection Info Order Time SPECIMEN TO PATHOLOGY Left pleural biopsy OR 22 [id number] pleural effusion Left pleural biopsy biopsy YES, Please perform frozen section 02/08/2022 1:01 PM Number of tissue samples (in container) 1 Time specimen removed from patient: 1:00 PM CYTOPATHOLOGY NON-GYNECOLOGICAL Left pleural fluid OR 22 [id number] 02/08/2022 1:10 PM Pertinent clinical data and significant therapy: pleural effusion Clinical impression: pleural effusion Procedure Type: Other (please specify in Comments Field below) Specimen Type: Pleural fluid (thoracentesis) Description and source of specimen: Left pleural fluid SPECIMEN TO PATHOLOGY Left pleural biopsy OR 22 [id number] pleural effusion Left pleural biopsy biopsy 02/08/2022 1:15 PM Time specimen removed from patient: 1:15 PM Number of tissue samples (in container) 1 Drains: 28 Chadian chest tube, left Surgical Closure: Primary Closure [...] to this patient.) HPI/Surgical Indications: 71-year-old man with a recurrent pleural effusion almost 1 year after thoracoscopic left upper lobectomy Procedure Description: The patient was brought to the operating room and placed on the table in supine position. General anesthesia was induced and he was endotracheally intubated with a double-lumenendotracheal tube. The position of the tube was confirmed bronchoscopically, and diagnostic bronchoscopy was performed. On the right the examined airway was anatomically normal without endobronchial lesions or excessive secretions. On the left, the upper lobe was surgically absent with an intact bronchial stump. The lower lobe airway was anatomically normal. I judged that it was safe and appropriate to proceed with the planned operation. The patient was positioned in the right lateral decubitus, left side up position and the chest was prepped and draped in the standard sterile fashion. A hardstop surgical timeout confirmed the patient's identity as well as the nature and laterality of the procedure to be performed. A finder needle was used to identify a rib space posteriorly several centimeters superior to his previous retraction port where serous fluid could be aspirated. This rib space was anesthetized with lidocaine and an approximately 15 mm incision made and carried down to the ribs. The rib space was tight and the ribs were firmly retracted, and it was only with some difficulty we were able to enter the left hemithorax. Abundant slightly blood-tinged serous fluid was encountered and sent for cytology and cultures. We were then ultimately able to place an 11 mm port through this incision, and then to place the thoracoscope. There was a dense white rind on the parietal pleural surface, whereas the visceral pleural surface had a more friable serrato gelatinous rind and debris coating it. White fibrinous loculations were present. The loculations were broken up with the thoracoscope and the lung gently mobilized to permit placement of a second port anteriorly. The camera was shifted to this port, and visceral and parietal pleural biopsies were obtained. The parietal pleura was incised with the electrocautery to permit a generous biopsy of parietal pleural peel to be removed. Finally, the chest cavity was irrigated copiously with warm normal saline. A 28 Chadian chest tube was placed through the anterior port site and advanced to the apex of the hemithorax. The left lung was ventilated and partially expanded. The incisions were then closed in layers with absorbable suture. The patient was allowed to emerge from anesthesia before being extubated in the operating room without incident and transported to the recovery area in stable condition. All of the relevant counts for the case were correct, and as the attending surgeon I was present and scrubbed at the bedside throughout. GILMER FOSTER MD documented in this encounter Plan of Treatment Scheduled Procedures Name Priority Associated Diagnoses Date/Ti ut ELECTROPHYSIOLOGY PROCEDURE Persistent atrial fibrillation CARDIOVERSION-ELECTIVE (WRVU 2) persistent atrial fibrillation TRANSESOPHAGEAL ECHOCARDIOGR AM (WRVU 2.3) persistent atrial fibrillation Scheduled Referrals Name Type Priority Associated Diagnoses Orde r Schedule Referral to Home Health Outpatient Referral Routine Mass of upper lobe of left lung Ordered: 02/10/2022 documented as of this encounter Procedures Procedure Name Priority Date/Time Associated Diagnosis Comments XR CHEST PA AND LATERAL Routine 02/11/20 5:23 AM EST XR CHEST ONE VIEW STAT 02/08/2022 2:3 7 PM EST SPECIMEN TO PATHOLOGY Routine 02/08/2022 1:15 PM EST NON-TRAVELING SALES REPRESENTATIVE FINAL REPORT Routine 02/08/2022 1:10 PM EST CYTOPATHOLOGY NON-GYNECOLOGICAL Routine 02/08/2022 1:10 PM EST SURGICAL PATHOLOGY REPORT Routine 2021 1:01 PM EST SPECIMEN TO PATHOLOGY STAT 02/08/2022 1:01 PM EST IMMUNOPHENOTYPING FLOW CYTOMETRY (BLOOD) Routine 02/08/2022 12:54 PM EST FLOW CYTOMETRY REPORT Routine 02/08/2022 12:54 PM EST HC CONC. FOR INFECTIOUS AGENTS Routine 02/08/2022 12:54 PM EST HC MYCOBACTERIA CULTURE Routine 02/09/20 12:54 PM EST BODY FLUID CULTURE, AEROBIC Routine 02/08/2022 12:54 PM EST HC FUNGUS CULTURE, MISC SOURCE Routine 02/08/2022 12:54 PM EST Bronchoscopy, Diagnostic ([id number]) 02/08/2022 12:00 PM EST Pleural effusion Squamous cell carcinoma of left lung Thoracoscopy With Biopsy of Pleura 02/08/2022 12:00 PM EST Pleural effusion Squamous cell carcinoma of left lung THORACOSCOPY; WITH BIOPSY(IES) OF PLEURA Routine 02/08/2022 7:07 AM EST Pleural effusion Squamous cell carcinoma of left lung BRONCHOSCOPY,DIAGNOSTIC Routine 02/09/20 7:07 AM EST Pleural effusion Squamous cell carcinoma of [...] who have questions please contact the health pet care associate that requested your imaging first. ? Electronically signed by: Marcus Edwards MD, [facility] ([phone]), at 03/06/2022 2:27 PM Narrative 03/06/2022 2:27 PM EST EXAMINATION: XR [...] patients who have questions please contactthe health pet care associate that requested your imaging first. Electronically signed by: Marcus Edwards MD, [facility]([phone]), at 03/06/2022 2:27 PM Gilmer Foster MD IMG DX ORDERABLE S * XR Chest PA & Lateral (Generic) (02/10/2022 5:23 AM EST) Anatomical Region Laterality Modality Chest N/A Digital Radiogra phy Impressions 02/10/2022 8:05 AM EST Enlarging left hydropneumothorax. Thank you for letting us participate in the care of this patient. ??If you are a health care provider and have any questions regarding this report, please contact the number below. ??For patients who have questions please contact the health pet care associate that requested your imaging first. ? Electronically signed by: Maryann Magallanes MD, [facility] ([phone]), at 02/10/2022 8:05 AM Narrative 02/10/2022 8:05 AM EST EXAMINATION: XR CHEST PA AND LATERAL (GENERIC) CLINICAL HISTORY: s/p left VATS pleural bx ?interval change TECHNIQUE: PA and lateral views of the chest COMPARISON: Chest x-ray December 11 and February 08, 2022 FINDINGS: Solitary posterior apically directed left chest tube remains in satisfactory position. Enlarging left hydrocele pneumothorax. Right lung is clear. Cardiac, mediastinal and hilar contours normal. Procedure Note Maryann Magallanes MD - 02/10/2022 EXAMINATION: XR CHEST PA AND LATERAL (GENERIC) CLINICAL HISTORY: s/p left VATS pleural bx ?interval change TECHNIQUE: PA and lateral views of the chest COMPARISON: Chest x-ray December 11 and February 08, 2022 FINDINGS: Solitary posterior apically directed left chest tube remains insatisfactory position. Enlarging left hydrocele pneumothorax. Right lung is clear.Cardiac, mediastinal and hilar contours normal. IMPRESSION Enlarging left hydropneumothorax. Thank you for letting us participate in the care of this patient. If youare a health care provider and have any questions regarding this report,please contact the number below. For patients who have questions please contactthe health pet care associate that requested your imaging first. Electronically signed by: Maryann Magallanes MD, [facility]([phone]), at 02/10/2022 8:05 AM Gilmer Foster MD IMG DX ORDERABLE S * XR Chest One View (02/08/2022 2:37 PM EST) Anatomical Region Laterality Modality Chest N/A Digital Radiogra phy Impressions 02/08/2022 2:57 PM EST Left-sided chest tube with expected position, moderate left-sided hydropneumothorax, overall volume of fluid is similar to the prior comparison CT. Thank you for letting us participate in the care of this patient. ??If you are a health care provider and have any questions regarding this report, please contact the number below. ??For patients who have questions please contact the health pet care associate that requested your imaging first. ? Narrative 02/08/2022 2:57 PM EST EXAMINATION: XR CHEST ONE VIEW CLINICAL HISTORY: s/p left VATS pleural biopsy, assess for postoperative changes and pneumothorax TECHNIQUE: 1 view of the chest COMPARISON: CT 01/29/2022 FINDINGS: Interval development of hydropneumothorax on the left, air component is small. Overall similar size of the pleural effusion seen on the prior CT. Left apically directed chest tube, tip overlies the left fourth posterior rib. Moderate left-sided thoracic volume loss also similar to prior. Right lung is well expanded and clear. Cardiac and mediastinal contours within normal limits. No central pulmonary vascular congestion. No acute bony abnormality. Procedure Note Jose Aaron MD - 02/08/2022 EXAMINATION: XR CHEST ONE VIEW CLINICAL HISTORY: s/p left VATS pleural biopsy, assess for postoperativechanges and pneumothorax TECHNIQUE: 1 view of the chest COMPARISON: CT 01/29/2022 FINDINGS: Interval development of hydropneumothorax on the left, air component issmall. Overall similar size of the pleural effusion seen on the prior CT. Leftapically directed chest tube, tip overlies the left fourth posterior rib.Moderate left-sided thoracic volume loss also similar to prior. Right lung is well expanded and clear. Cardiac and mediastinal contours within normal limits. No centralpulmonary vascular congestion. No acute bony abnormality. IMPRESSION Left-sided chest tube with expected position, moderate left-sided hydropneumothorax, overall volume of fluid is similar to the priorcomparison CT. Thank you for letting us participate in the care of this patient. If youare a health care provider and have any questions regarding this report,please contact the number below. For patients who have questions please contactthe health pet care associate that requested your imaging first. Gilmer Foster MD IMG DX ORDERABLE S * Specimen to Pathology (02/08/2022 1:15 PM EST) AP Specimen 02/08/2022 1:15 PM EST 02/08/2022 1:15 PM EST [facility] LABORATORY - 02/08/2022 1:15 PM EST Specimen requisition ordered. ??Separate Pathology report to follow Gilmer Foster MD PATHOLOGY/CYTOLO GY ORDERABLES [facility] [place] [address] * Non-Primary Care Nurse Practitioner Final Report (02/08/2022 1:10 PM EST) Diagnosis Discussion [id number] ? Location: [facility]; [facility]; The signing pathologist has (i) examined the relevant preparation(s) for the specimen(s) and (ii) rendered or confirmed the diagnosis(es). . ? Non-Primary Care Nurse Practitioner Final DIAGNOSIS See Discussion Electronically signed by: ?Asher FLORES, Rory Swann Verified: ??02/10/2022 17:36 ??Cytopathologis t Performed at: ??-[facility] Dept. of [place]ology, [place] [address] Help Desk Operator: Maria Ines Marrufo MD, AP, ??CLIA Certificate: [id number] DISCUSSION Pleural fluid: left (thoracentesis) - Predominantly small lymphocytes and fibrin. No cytologically malignant cells seen. (Cell block was examined.) CLINICAL INFORMATION Specimen Source : Pleural fluid: left (thoracentesis) Pertinent Clinical Data and Significant Therapy: Pleural effusion Clinical Impression : Pleural effusion Pertinent Radiologic Findings ??: (not provided) Gross Description: Received ??fresh, approximately 29 mL total volume of cloudy, red fluid, with clots. Total Preparation: Liquid-Based Prep 1; Cell Block 1. 02/10/2022 5:36 PM EST [facility] LABORATORY LEFT PLEURAL FLUID / Unknown 02/08/2022 1:10 PM EST 02/08/2022 1:10 PM EST Gilmer Foster MD PATHOLOGY/CYTOLO GY ORDERABLES Performing Organization Address [facility] Co de Phone Number [facility] [place] [address] * Cytopathology Non-Gynecological (02/08/2022 1:10 PM EST) AP Specimen 02/08/2022 1:10 PM EST 02/08/2022 1:10 PM EST Narrative [facility] LABORATORY - 02/08/2022 1:10 PM EST Specimen requisition ordered. ??Separate Pathology report to follow Gilmer Foster MD PATHOLOGY/CYTOLO GY ORDERABLES Performing Organization Address [facility] Co [place] [address] * Surgical Pathology Report (02/08/2022 1:01 PM EST) Final Diagnosis [id number] ? Location: [facility]; [address] The signing pathologist has (i) examined the relevant preparation(s) for the specimen(s) and (ii) rendered or confirmed the diagnosis(es). . ?Surgical Pathology DIAGNOSIS A - Left pleural biopsy ?? for frozen section - Granulation ??tissue, reactive-type mesothelial cells, necrosis and fibrin, ?(see Discussion.) B - Left pleural biopsy, biopsy ??- Chronic inflammation, fibrous and fibrinous pleuritis. Electronically signed by: ?Marleny Parra DO Verified: ??02/16/2022 10:09 ??Pathologist Performed at: ??-[facility] Dept. of [place]ology, [place] [address] Help Desk Operator: Maria Iens Marrufo MD, FCAP, ??CLIA Certificate: [id number] DISCUSSION No malignancy is identified. ??The morphology of the small vessels appears compatible with granulation type tissue with degenerative changes. ??A vascular neoplasm was considered but appears inconsistent with the appearance. ??An infectious process is a consideration. Clinical correlation required. Dr Rothman, Gita and Regino have reviewed the case and concur. ADDITIONAL STUDIES Immunohistochemistry Studies: Formalin-fixed, paraffin-embedded tissue sections are studied using the polymer technique with appropriate positive and negative controls. ?These IHC studies provide the pathologist with adjunctive diagnostic information. Antibody specificity has been verified by testing antibodies on a series of in-house tissues with known immunohistochemical performance characteristics. The clinical interpretation of any antibody positive staining or its absence is evaluated within the context of clinical presentation, morphology, histopathological criteria and other diagnostic tests. Block ? Antibody ?Result (Positive/Negative) A2 ?FLi1 ?Positive in vessels A2 ?CD31 ?Positive in vessels A2 ?CD34 ?Positive in vessels A2 ?CK7 ? Rare faint cell A2 ?CKAE1/3 ? Rare faint cells. A2 ?CK20 ?Negative A2 ?CDX2 ?Negative A2 ?SOE6sfzw ?Negative A2 ?Calretinin ?Rare positive cell (high background) A2 ?P40 ? Negative SPECIMEN(S) SUBMITTED A - Left pleural biopsy, biopsy (1) ?? for frozen section B - Left pleural biopsy, biopsy (1) CLINICAL INFORMATION Pleural effusion . SPECIMEN PROCESSING A - Labeled/Fixative: Left pleural biopsy, fresh for frozen section. Quantity/Size: ??Multiple, 2.0 x 2.0 x 0.7 cm in aggregate Tissue Description: Soft, serrato-pink tissues Sections/Processing: The specimen is totally submitted for frozen section in 2 cassettes labeled A1-A2. B - Labeled/Fixative: Left pleural biopsy, fresh. Quantity/Size: Multiple, 5.5 x 3.0 x 2.5 cm. Tissue Description: Aggregate of soft, pink-white membranous tissue fragments. Sections/Processing: Infrastructure Design Engineer sections in 2 cassettes labeled B1-B2. ??sns ?Frozen Section FROZEN SECTION DIAGNOSIS AFS - Left pleural biopsy, ?? for frozen section (2 blocks): Atypical cells, cannot exclude malignancy, defer to permanent. 02/08/22 13:26 Electronically signed by: ?Regino FLORES, Malia Swann Verified: ??02/08/2022 13:50 ??Pathologist Performed at: ??-[facility] Dept. of Pathology, [place] [address] Help Desk Operator: Maria Ines Marrufo MD, [facility], ??CLIA Certificate: [id number] This intraoperative consultation should be interpreted as a preliminary diagnosis pending review of the entire specimen and special studies, if any. A final Surgical Pathology report will follow this preliminary Frozen Section report(s). 02/16/2022 10:09 AM EST [facility] LABORATORY Frozen Specimen 02/08/2022 1 :01 PM EST 02/08/2022 1:01 PM EST Pleura 02/08/2022 1:01 PM EST 02/08/2022 1:01 PM EST Gilmer Foster MD PATHOLOGY/CYTOLO GY ORDERABLES [facility] LABORAT[facility] [place] [id number] [facility] [place] [address] * Specimen to Pathology (02/08/2022 1:01 PM EST) AP Specimen 02/08/2022 1:01 PM EST 02/08/2022 1:01 PM EST Narrative [facility] LABORATORY - 02/08/2022 1:01 PM EST Specimen requisition ordered. ??Separate Pathology report to follow Gilmer Foster MD PATHOLOGY/CYTOLO GY ORDERABLES [facility] [place] [address] * Flow Cytometry Report (02/08/2022 12:54 PM EST) Flow Cytometry Report [id number] ? Location: [facility]; [facility]; The signing pathologist has (i) examined the relevant preparation(s) for the specimen(s) and (ii) rendered or confirmed the diagnosis(es). . ?Flow Cytometry DIAGNOSIS Flow cytometric diagnosis: ?? Normal immunophenotyping results. No monotypic B-cell population or phenotypically abnormal T-cell population or increase in blasts is detected. Please see surgical morphology report for final delineation. NOTE: Carcinomas and some lymphomas are not detected by flow analysis. Electronically signed by: ?Mena FLORES, Ruddy Verified: ??02/09/2022 16:30 ??Hematopathologist Performed at: ??-[facility] Dept. of Pathology, [place] [address] Help Desk Operator: Maria Ines Marrufo MD, AP, ??CLIA Certificate: [id number] DISCUSSION Blasts based on CD45 expression and orthogonal light scatter, are not increased. The CD19 positive B-cells have a polytypic expression of surface immunoglobulin light chain ([place]:Lambda ratio at 1.7). The T-cells are an admixture of CD4+ and CD8+ T lymphocytes (ratio of 1.6). No loss or atypical intensity distributions are seen for any nixon T antigen (CD2, 3, 4+8, 5, 7). There is no increase in WY41-fvzyeqoi/CD3-ne g NK cells. Flow analysis is an ancillary study. A definite diagnosis requires correlation with the morphologic features of this process and if necessary, correlation with other ancillary studies like immunohistochemistry , enzyme cytochemistry and/or cyto/ molecular genetics. This test was developed and its performance characteristics determined by the Clinical Flow Cytometry Laboratory at [facility]. It has not been cleared or approved by the U.S. Food and Drug Administration. ??The FDA has determined that such clearance or approval is not necessary. ??This test is used for clinical purposes. ??It should not be regarded as investigational or for research. This laboratory is certified under the Clinical Laboratory Improvement Act of 1988 (CLIA) as qualified to perform high complexity clinical laboratory testing. SPECIMEN PROCESSING [id number] Cells for immunophenotypic analysis were derived from pleural fluid. CD45 vs side scatter gating was utilized to identify a lymphoid analysis region that comprises approximately 58-70% of all cells. The following markers were assessed: CD2, CD3, CD4, CD5, CD7, CD8, CD10, CD19, CD45, CD56, kappa light chain, and lambda light chain. CLINICAL INFORMATION 71 year old ?man ??who underwent thoracoscopic left upper lobectomy who has developed a new left sided pleural effusion ??, which has been drained twice with negative cytology but has ??recurred on each occasion. [facility] LABORATORY 02/08/2022 12:5 4 PM EST Gilmer Foster MD PATHOLOGY/CYTOLO GY ORDERABLES [facility] [place] [address] * Body Fluid Culture, Aerobic (02/08/2022 12:54 PM EST) Body Fluid Culture No growth [facility] Gram Stain Cytocentrifuge Gram Stain performed No Neutrophils seen. No microorganisms seen. [facility] Pleural Fluid 02/08/2022 12: 54 PM EST 02/08/2022 2:17 PM EST Comment:Pleural fluid Narrative Resulting Agency Comment Spec In Lab Gilmer Foster MD MICROBIOLOGY - G ENERAL ORDERABLES Performing Organization Address [place]/[facility] Co de Phone Number [facility] [place] [address] * Immunophenotyping Flow Cytometry (02/08/2022 12:54 PM EST) Immunophenotyping Flow See Comment [facility] Comment: When completed by the Pathologist, the Flow Cytometry Report ([id number]) will display under the Pathology Results section within [facility]. Other 02/08/2022 12:5 4 PM EST 02/08/2022 2:07 PM EST Narrative Resulting Agency Comment Spec In Lab Gilmer Foster MD HEMATOLOGY ORDER PHILOMENA Performing Organization Address [facility] Co de Phone Number [facility] [place] [address] * AFB culture Pleural Fluid (02/08/2022 12:54 PM EST) Acid Fast Bacilli Culture No Acid Fast Bacilli isolated If active tuberculosis is suspected, the patient should be on [employer]. Call Infection Prevention for assistance if needed. [facility] Acid Fast Stain No Acid Fast Bacilli seen [facility] Pleural Fluid 02/08/2022 12: 54 PM EST 02/08/2022 2:17 PM EST Comment:Pleural fluid Narrative Resulting Agency Comment Spec In Lab Gilmer Foster MD MICROBIOLOGY - G ENERAL ORDERABLES Performing Organization Address [place]/[facility] Co de Phone Number [facility] [place] [address] * Fungus culture Pleural Fluid (02/08/2022 12:54 PM EST) Fungus Culture No Fungus isolated [facility] Pleural Fluid 02/08/2022 12: 54 PM EST 02/08/2022 2:17 PM EST Comment:Pleural fluid Narrative Resulting Agency Comment Spec In Lab Gilmer Foster MD MICROBIOLOGY - G ENERAL ORDERABLES [facility] [address] [place] [address] documented in this encounter Visit Diagnoses Diagnosis Pleural effusion- Primary Unspecified pleural effusion 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 Maximum dose of acetaminophen is 4,000 mg from all sources in 24 hours., Day of Surgery (Day of Procedure), Routine Given 02/08/2022 11:25 AM EST 1,000 mg acetaminophen (Tylenol) tablet 1,000 mg 1,000 mg, Oral, EVERY 6 HOURS SCHEDULED, First dose on Stephanie 02/08/22 at 1800, Until Discontinued, Maximum dose of acetaminophen is 4000 mg from all sources in 24 hours. When ordered for pain, acetaminophen should be given even when other ordered pain medications are indicated., Recovery (Recovery-Hospital Unit), Routine Given 02/10/2022 12:00 PM EST 1,000 mg Given 02/10/2022 5:34 AM EST 1,000 mg Given 02/09/2022 11:26 PM EST 1,000 mg BUpivacaine (pf) (Marcaine) (5 mg/mL) 0.5% injection ONCE PRN, Starting on Stephanie 02/08/22 at 1338, Until 02/10/22 at 1530, Intra-Operative (Intra-Procedure), Routine Given 02/08/2022 1:38 PM EST 30 mLs 19- Surgical Site docusate sodium (Colace) capsule 100 mg 100 mg, Oral, 3 TIMES DAILY, First dose on Stephanie 02/08/22 at 2100, Until Discontinued, Routine Given 02/09/2022 9:00 PM EST 100 mg Given 02/09/2022 5:28 PM EST 100 mg Given 02/09/2022 8:27 AM EST 100 mg heparin (porcine) (5,000 units/1 mL) subcutaneous injection 5,000 Units 5,000 Units, Subcutaneous, ELECTROTHERAPIST TO O.R., 1 dose, On Stephanie 02/08/22 at 1130, Not within 60 minutes of placing epidural catheter., Day of Surgery (Day of Procedure), Routine Given 02/08/2022 11:30 AM EST 5,000 Units Abdominal Tissue hydrOXYchloroQUINE (Plaquenil) tablet 200 mg 200 mg, Oral, DAILY, First dose on Sat02/09/22 at 0900, Until Discontinued, Routine Given 02/10/2022 8:36 AM EST 200 mg Given 02/09/2022 8:27 AM EST 200 mg lidocaine (Lidoderm) 5% patch 1 patch 1 patch, Transdermal, EVERY 24 HOURS, First dose on Stephanie 02/08/22 at 1830, Until Discontinued, Apply patch(es) for 12 hours, and then remove for 12 hours., Recovery (Recovery-Hospital Unit), Routine Patch Applied 02/09/2022 5:28 PM EST 1 patch 11- Chest (Left) Patch Applied 02/08/2022 6:21 PM EST 1 patch 19- Surgical Site lidocaine (Lidoderm) 5% patch 2 patch 2 patch, Transdermal, EVERY 24 HOURS, First dose (after last modification) on [facility] 02/10/22 at 1830, Until Discontinued, Apply patch(es) for 12 hours, and then remove for 12 hours., Recovery (Recovery-Hospital Unit), Routine lidocaine (Lidoderm) topical patch REMOVAL Transdermal, EVERY 24 HOURS, First dose (after last modification) on [facility] 02/10/22 at 0615, Until Discontinued, Remove lidocaine 5% patch, Recovery (Recovery-Hospital Unit) lisinopriL (Zestril) tablet 10 mg 10 mg, Oral, DAILY, First dose on Sat02/09/22 at 0900, Until Discontinued, Routine Given 02/10/2022 8:35 AM EST 10 mg Given 02/09/2022 8:27 AM EST 10 mg metoprolol succinate XL (Toprol-XL) tablet 25 mg 25 mg, Oral, DAILY, First dose on Sat02/09/22 at 0900, Until Discontinued, DO NOT CRUSH OR OPEN, Routine Given 02/10/2022 8:36 AM EST 25 mg Given 02/09/2022 8:27 AM EST 25 mg pantoprazole EC (Protonix) tablet 40 mg 40 mg, Oral, DAILY, First dose on Sat02/09/22 at 0900, Until Discontinued, DO NOT CRUSH OR OPEN Given 02/10/2022 8:36 AM EST 40 mg Given 02/09/2022 8:27 AM EST 40 mg senna (Senokot) tablet 17.2 mg 17.2 mg, Oral, EVERY EVENING, First dose on Sat02/09/22 at 1700, Until Discontinued, Routine Given 02/09/2022 5:28 PM EST 17.2 mg sodium chloride 0.9 % (flush) (BD PosiFlush Normal Saline 0.9) flush 5 mL 5 mL, Intravenous, 2 TIMES DAILY, First dose on Sat02/08/22 at 2100, Until Discontinued, Recovery (Recovery-Hospital Unit), Routine Given 02/10/2022 8:37 AM EST 5 mLs Given 02/09/2022 8:28 AM EST 10 mLs Given 02/08/2022 8:47 PM EST 5 mLs tamsulosin (Flomax) capsule 0.4 mg 0.4 mg, Oral, DAILY, First dose on Sat02/09/22 at 0900, Until Discontinued, DO NOT CRUSH OR OPEN, Routine Given 02/10/2022 8:35 AM EST 0.4 mg Given 02/09/2022 8:27 AM EST 0.4 mg tiotropium bromide (Spiriva Respimat) 2.5 mcg/actuation inhaler 2 puff 2 puff, Inhalation, DAILY, First dose on Sat02/09/22 at 1300, Until Discontinued, Must be primed prior to first administration, Routine Given 02/10/2022 8:34 AM EST 2 puffs Given 02/09/2022 12:17 PM EST 2 puffs documented in this encounter Active and Recently Administered Medications Times are shown in EST. Scheduled Medication Order 02/08/2022 02/09/2022 02/10/2022 acetaminophen (Tylenol) tablet 1,000 mg (COMPLETED) 1,000 mg, Oral, ONCE, 1 dose, On Stephanie 02/08/22 at 1130, Administer with SIP of H2O only. Maximum dose of acetaminophen is 4,000 mg from all sources in 24 hours., Day of Surgery (Day of Procedure), Routine 1125 (Given - Provider: Marcus Kong RN) acetaminophen (Tylenol) tablet 1,000 mg 1,000 mg, Oral, EVERY 6 HOURS SCHEDULED, First dose on Stephanie 02/08/22 at 1800, Until Discontinued, Maximum dose of acetaminophen is 4000 mg from all sources in 24 hours. When ordered for pain, acetaminophen should be given even when other ordered pain medications are indicated., Recovery (Recovery-Hospital Unit), Routine 1821 (Given - Provider: Loreta Decker RN)2340 (Given - Provider: Elizabet Enrique RN) 0621 (Given - Provider: Elizabet Enrique RN)1215 (Given - Provider: Judith Del Angel RN)1728 (Given - Provider: Judith Del Angel RN)2326 (Given - Provider: Janny Diaz RN) 0534 (Given - Provider: Janny Diaz RN)1200 (Given - Provider: Malia Paredes RN) docusate sodium (Colace) capsule 100 mg 100 mg, Oral, 3 TIMES DAILY, First dose on Stephanie 02/08/22 at 2100, Until Discontinued, Routine 2100 (Not Given - Provider: Loreta Decker RN - Reason: See comment - Comment: medication not verified, RN messaged and called 1 hour prior to admin.) 0827 (Given - Provider: Debbie Pride RN)1728 (Given - Provider: Judith Del Angel RN)2100 (Given - Provider: Janny Diaz RN) 0900 (Not Given - Provider: Malia Paredes RN - Reason: Patient/family refused) heparin (porcine) (5,000 units/1 mL) subcutaneous injection 5,000 Units (COMPLETED) 5,000 Units, Subcutaneous, ELECTROTHERAPIST TO O.R., 1 dose, On Stephanie 02/08/22 at 1130, Not within 60 minutes of placing epidural catheter., Day of Surgery (Day of Procedure), Routine 1130 (Given - Provider: Marcus Kong RN) hydrOXYchloroQUINE (Plaquenil) tablet 200 mg 200 mg, Oral, DAILY, First dose on Sat02/09/22 at 0900, Until Discontinued, Routine 826 (Given - Provider: Debbie Pride RN) 0836 (Given - Provider: Malia Paredes, CHRISTINA) lidocaine (Lidoderm) 5% patch 1 patch (CANCELED) 1 patch, Transdermal, EVERY 24 HOURS, First dose on Stephanie 02/08/22 at 1830, Until Discontinued, Apply patch(es) for 12 hours, and then remove for 12 hours., Recovery (Recovery-Hospital Unit), Routine 1820 (Patch Applied - Provider: Loreta Decker RN) 1727 (Patch Applied - Provider: Judith Del Angel RN)183 (Not Given - Provider: Judith Del Angel RN - Reason: See comment - Comment: see 1727 administration) lidocaine (Lidoderm) 5% patch 2 patch(Linked Group 1) 2 patch, Transdermal, EVERY 24 HOURS, First dose (after last modification) on 02/10/22 at 1830, Until Discontinued, Apply patch(es) for 12 hours, and then remove for 12 hours., Recovery (Recovery-Hospital Unit), Routine lidocaine (Lidoderm) topical patch REMOVAL(Linked Group 1) Transdermal, EVERY 24 HOURS, First dose (after last modification) on 02/10/22 at 0615, Until Discontinued, Remove lidocaine 5% patch, Recovery (Recovery-Hospital Unit) 0615 (Patch Removed - Provider: Janny Diaz RN) lisinopriL (Zestril) tablet 10 mg 10 mg, Oral, DAILY, First dose on Sat02/09/22 at 0900, Until Discontinued, Routine 826 (Given - Provider: Debbie Pride RN) 0835 (Given - Provider: Malia Paredes RN) metoprolol succinate XL (Toprol-XL) tablet 25 mg 25 mg, Oral, DAILY, First dose on Sat02/09/22 at 0900, Until Discontinued, DO NOT CRUSH OR OPEN, Routine 826 (Given - Provider: Debbie Pride RN) 0836 (Given - Provider: Malia Paredes RN) pantoprazole EC (Protonix) tablet 40 mg 40 mg, Oral, DAILY, First dose on Sat02/09/22 at 0900, Until Discontinued, DO NOT CRUSH OR OPEN 0827 (Given - Provider: Debbie Pride RN) 0836 (Given - Provider: Malia Paredes, CHRISTINA) senna (Senokot) tablet 17.2 mg 17.2 mg, Oral, EVERY EVENING, First dose on Sat02/09/22 at 1700, Until Discontinued, Routine 1728 (Given - Provider: Judith Del Angel RN) sodium chloride 0.9 % (flush) (BD PosiFlush Normal Saline 0.9) flush 5 mL 5 mL, Intravenous, 2 TIMES DAILY, First dose on Stephanie 02/08/22 at 2100, Until Discontinued, Recovery (Recovery-Hospital Unit), Routine 204 (Given - Provider: Loreta Decker RN) 0828 (Given - Provider: Debbie Pride RN)2100 (Not Given - Provider: Janny Diaz RN - Reason: See comment) 0837 (Given - Provider: Malia Paredes, CHRISTINA) tamsulosin (Flomax) capsule 0.4 mg 0.4 mg, Oral, DAILY, First dose on Sat02/09/22 at 0900, Until Discontinued, DO NOT CRUSH OR OPEN, Routine 0827 (Given - Provider: Debbie Pride RN) 0835 (Given - Provider: Malia Paredes RN) tiotropium bromide (Spiriva Respimat) 2.5 mcg/actuation inhaler 2 puff 2 puff, Inhalation, DAILY, First dose on Sat02/09/22 at 1300, Until Discontinued, Must be primed prior to first administration, Routine 1217 (Given - Provider: Judith Del Angel RN) 0834 (Given - Provider: Malia Paredes RN) PRN Medication Order 02/08/2022 02/09/2022 02/10/2022 BUpivacaine (pf) (Marcaine) (5 mg/mL) 0.5% injection (CANCELED) ONCE PRN, Starting on Stephanie 02/08/22 at 1338, Until 02/10/22 at 1530, Intra-Operative (Intra-Procedure), Routine 1338 (Given - Provider: Gilmer Foster MD) lidocaine (Xylocaine) 1% (10 mg/mL) injection 3 mg 3 mg (0.3 mL), Subcutaneous, ONCE PRN, 1 dose, Starting on Stephanie 02/08/22 at 1811, Until 02/10/22 at 1530, for discomfort with PIV insertion, Recovery (Recovery-Hospital Unit), Routine sodium chloride 0.9 % (flush) (BD PosiFlush Normal Saline 0.9) flush 5-20 mL 5-20 mL, Intravenous, EVERY 1 MIN PRN, Starting on Stephanie 02/08/22 at 1811, Until 02/10/22 at 1530, flush, Flush pertains to all indwelling lines. Flush per protocol found in the job aid using the link provided on this medication record., Recovery (Recovery-Hospital Unit), Routine Linked Groups Order Group 1: lidocaine (Lidoderm) 5% patch 2 patchJump to med 2 patch, Transdermal, EVERY 24 HOURS, First dose (after last modification) on 02/10/22 at 1830, Until Discontinued, Apply patch(es) for 12 hours, and then remove for 12 hours., Recovery (Recovery-Hospital Unit), Routine And lidocaine (Lidoderm) topical patch REMOVALJump to med Transdermal, EVERY 24 HOURS, First dose (after last modification) on 02/10/22 at 0615, Until Discontinued, Remove lidocaine 5% patch, Recovery (Recovery-Hospital Unit) documented in this encounter Care Teams Ironing Machine Operator Relationship Specialty Start Date End Date Tami Olivia [address] [place] [address] PCP - General Family Medicine 12/30/20 documented as of this encounter
--- OUTSIDE RECORDS SUMMARY | 2023-12-11 17:35 | XMS_ITS | Encounter Summary ---
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 73 m?? 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
--- OUTSIDE RECORDS SUMMARY | 2023-12-11 17:35 | XMS_ITS | Encounter Summary ---
Author Organization Count Includes [facility] Address [facility] [place] [address] Care Team Providers Care Brand Development Manager Name Role Phone Tami Olivia Primary Care Provider [phone] Reason for Visit * Reason Onset Date Comments Other 02/15/2022 Encounter Details Date Type Department Care Team (Late st Contact Info) Description 02/15/2022 Telephone Thoracic Surgery at [facility] [place] [phone] Megan Reza, RN Other Social History Tobacco [...] Telephone Encounter - Megan Reza RN - 02/16/2022 9:10 AM ESTSummary: call to check in TC to Mr. Marquez Hx:??s/p L VATS Pleura biopsy 02/08/2022, air leak, Xarelto for afib. Mr. Marquez is stating that he is still notes bubbles on both coughing and valsalva maneuvers. He is having some pain near his CT insertion site but denies any fevers, chills, sweats, redness, swelling.There is some external drainage on the dressing but it is no longer saturating the gauze. They continue to remove the fluid to perform the air leak checks with the fluid between 60 and 80 mls. He continues to take tylenol and ibuprofen with good relief of discomfort. They know to continue to check for air leak, increase his use of the IS and ambulate. They know to call with any questions or concerns and will check in on Saturday. documented in this encounter Plan of Treatment Scheduled Procedures Name Priority Associated Diagnoses Date/Ti me ELECTROPHYSIOLOGY PROCEDURE Persistent atrial fibrillation CARDIOVERSION-ELECTIVE (WRVU 2) persistent atrial fibrillation TRANSESOPHAGEAL ECHOCARDIOGR AM (WRVU 2.3) persistent atrial fibrillation documented as of this encounter Visit Diagnoses Not on filedocumented in this encounter Care Teams Brand Development Manager Relationship Specialty Start Date End Date Tami Olivia [address] [place] [address] PCP - General Family Medicine 12/30/20 documented as of this encounter
--- OUTSIDE RECORDS SUMMARY | 2023-12-11 17:35 | XMS_ITS | Encounter Summary ---
Author Organization Formerly [facility] Address [facility] [place] [address] Care Team Providers Care Carpenter Refrigerator Name Role Phone Tami Olivia Primary Care Provider [phone] Encounter Details Date Type Department Care Team (Late st Contact Info) Description 01/29/2022 2:00 PM EST Office Visit Thoracic Surgery at [facility] [place] [address] Gilmer Gutiérrez MD [facility] [place] [address] Pleural effusion; Squamous cell carcinoma of left lung Social [...] Sign Reading Time Taken Comments Blood Pressure 137/57 01/29/2022 2:10 PM EST Pulse 62 01/29/2022 2:10 PM EST Temperature 36.3 ??C (97.3 ??F) 01/29/2022 2:10 PM ES T Respiratory Rate 18 01/29/2022 2:10 PM EST Oxygen Saturation 98% 01/29/2022 2:10 PM EST Inhaled Oxygen Concentration - - Weight 73.5 kg (162 lb 0.6 oz) 01/29/2022 2:10 P M EST Height 174.8 cm (5' 8.82) 01/29/2022 2:10 PM ES T Body Mass Index 24.05 01/29/2022 2:10 PM EST documented in this encounter Patient Instructions * Patient Instructions* Amy Corbett RN - 01/29/2022 2:00 PM EST Thank you for visiting Dr. Gutiérrez in clinic 01/29/22 Dr. Gutiérrez would like to schedule you for your Video Assisted Thoracoscopic Surgery (VATS), Possible Pleurodesis, Possible Pleural Biopsy, Possible PleurX Catheter. Your procedure is scheduled for 02/08/2022. You will receive a phone call from the OR nurses on 02/07/2022 after 2pm through 6 pm. They will confirm your arrival time, review what medications to takeand when to stop eating and drinking. Your procedure will occur in medical reception specialist area 4W. YOU WILL NEED TO STOP YOUR XARELTO FOR 3 DAYS PRIOR TO SURGERY!! LAST DOSE Saturday02/04/2022, Hold Saturday, Saturday, Saturday and the morning of surgery. We will instruct you to re-start when appropriate. A video-assisted thoracoscopic surgery, or VATS, involves a range of technologies to enable the removal of tissue through several small cuts in the chest. A tiny camera, light supply and surgical tools are inserted in the incisions and through the body to the surgical site. Pleurodesis is a procedure that is designed to get the two layers of the lung lining (the pleura - (a thin layer of tissue that covers the lungs and lines the interior wall of the chest cavity) to stick together. This works to obliterate the space between the layers (the pleural cavity) so that fluid (water, blood, or pus) can no longer build up between the layers. Talc pleurodesis is a specific form of chemical pleurodesis. A pleural biopsy is a procedure to remove a sample of tissue from the pleura and then sent to the laboratory for testing. The pleura, is a 2 layer lining that surrounds the lungs. Before your Surgery: PLEASE WASH WITH EITHER DIAL SOAP or the HIBICLENS SOAP included in this package. Please wash your chest, sides and back. You may shower either the night before or the morning of surgery and please place clean clothes on after your shower. Exercise: Daily aerobic exercise for at least [...] and to prevent complications such as pneumonia. Some things to expect during your surgery [...] to clear up regularly throughout the day. POST SURGERY AT HOME INSTRUCTIONS: Example of what you will be taking for pain control after your surgery. Please make sure that you have Tylenol (acetaminophen) and Motrin (ibuprofen) at home before you are discharged : [id number] mg alternate with ibuprofen 200 mg (2-3 tabs) every 3 hours : ex. Schedule - Tylenol 1000 mg at 8am, Ibuprofen 200 mg (2-3 tabs) at 11 am, then tylenol 1000 mg at 2 pm, then ibuprofen 200 mg (2-3 tabs) at 5 pm. Do not exceed more than 4000 mg of tylenol in 24 hour period. POST SURGERY AT HOME INSTRUCTIONS: Bowel regimen while at home. Please obtain senna (Senokot) tablets, colace tablets, and Miralax powder. You will need to take senna once a day, colace three times a day and miralax once a day to keepyour bowels moving. If you do not have a bowel movement in 2 days you will need to call the office as you will need to obtain either Milk of Magnesia (MOM), a Fleet's enema or glycerin suppositories.If you are having diarrhea, then you may back off on the bowel medications. If you are taking narcotics, you need to continue the bowel medications while you are taking the narcotics. Dr. Gomes's team will see you twice per day while you are in the hospital. Two weeks after you leave the hospital, you will be scheduled to see Dr. Gomes in his clinic and will also have a chest x-ray before you see him on this day. Please call the Thoracic Surgery nurse if you have any questions before or after your surgery at . documented in this encounter Progress Notes * Loreta Terrell V, TERRITORY MANAGER GENERAL SALES - 01/29/2022 2:00 PM EST Thoracic Surgery Attending Outpatient Follow Up Note Gilmer Gutiérrez MD [place] [address] FAX: Chief complaint: Follow up LULobectomy, recurrent left pleural effusion HPI: Rajan Marquez is a 71 y.o. male former smoker (100PY history) who is s/p Left VATS LULobectomyon 03/29/2021. He was last seen in clinic in October [address] Chest demonstrating a new left pleural effusion. He underwent a thoracentesis on 11/08/21 with cytology negative for malignancy. He felt his breathing improved after this thoracentesis. He was seen by his carbide tool die maker in December who repeated a CT Chest and noted Left pleural effusion again. She attempted a thoracentesis and was only able to drain a small amount which she thought was due to loculation of the fluid. He presents today for further discussion regarding management of this recurrent Left pleural effusion. Rosa reportsshortness of breath with exertion such as climbing up several flights of stairs. He denies f/c/n/v/CP and is not smoking. Medications: Current Outpatient Medications on File Prior to Visit Medication Sig Dispense Refill ??? rivaroxaban (Xarelto) 20 mg Tablet Take 20 mg by mouth daily. ??? metoprolol succinate XL (Toprol-XL) 25 mg Tablet Sustained Release 24 hr Take 25 mg by mouth daily. ??? sildenafiL (VIAGRA) 50 mg Tablet TAKE 1/2 TO 1 TABLET BY MOUTH 30 MINUTES PRIOR TO SEXUAL ACTIVITY NEEDED. MAXIMUM DAILY DOSE 2 ??? lisinopriL (Zestril) 10 mg Tablet Take 10 mg by mouth daily. ??? UNABLE TO [...] Take 1 tablet by mouth daily. ??? fluticasone furoate-vilanteroL (Breo Ellipta) 200-25 mcg/dose Disk with Device Inhale 1 puff into the lungs Daily. No current facility-administered medications on file prior to visit. Physical Exam: Blood Pressure 137/57 (Patient Position: Sitting) Pulse 62 Temperature 36.3 ??C (97.3 ??F) (Temporal) Respiration 18 Height 174.8 cm (5' 8.82) Weight 73.5 kg (162 lb 0.6 oz) Oxygen Saturation 98% Body Mass Index 24.05 kg/m?? General Appearance: Alert, cooperative, no distress, appears stated age Nk: Supple, symmetrical, trachea midline, no adenopathy Lungs: Clear to auscultation bilaterally, respirations unlabored, no wheezes, crackles or ronchi. Heart: Regular rate and rhythm, S1 and S2 normal, no murmur, rub, or gallop Abdomen: Soft, non-tender, bowel sounds active all four quadrants, no masses, no organomegaly Extremities: Extremities normal, atraumatic, no cyanosis or edema Wound/Incision: Well healed Left VATs incisions Imaging: I have independently visualized the following studies: CT Chest (01/29/2022): No evidence recurrence Stable moderate pleural effusion Assessment: Rajan Marquez is a 71 y.o. 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 He is currently feeling well with no evidence of disease. He CT Chest today demonstrates a recurrent Left pleural effusion. Plan: 1. Plan for Left VATs, pleural biopsy, possible pleurodesis 2. Continue to abstain from smoking 3. Follow up with PCP as scheduled 4. Call with any questions or concerns Loreta Terrell APRN 01/29/22 Thoracic Surgery [facility] * Gilmer Gutiérrez MD - 01/29/2022 2:00 PM EST Thoracic surgery follow-up visit I saw and examined Mr. Marquez with Loreta Terrell APRN, and agree with her findings, assessment and plan. In brief: Chief complaint: Recurrent left pleural effusion following left upper lobectomy History of present illness: Mr. Marquez is a 71-year-old man who underwent thoracoscopic left upper lobectomy on March 29, 2021. When I saw him in October 30 for standard surveillance he had a new leftpleural effusion. This is subsequently been drained twice with negative cytology but has recurred on each occasion. He returns to see me to discuss the left pleural effusion. He reports exertional dyspnea. He has no pain and he is not smoking. Current Outpatient Medications on File Prior to Visit Medication Sig Dispense Refill ??? rivaroxaban (Xarelto) 20 mg Tablet Take 20 mg by mouth daily. ??? metoprolol succinate XL (Toprol-XL) 25 mg Tablet Sustained Release 24 hr Take 25 mg by mouth daily. ??? sildenafiL (VIAGRA) 50 mg Tablet TAKE 1/2 TO 1 TABLET BY MOUTH 30 MINUTES PRIOR TO SEXUAL ACTIVITY NEEDED. MAXIMUM DAILY DOSE 2 ??? lisinopriL (Zestril) 10 mg Tablet Take 10 mg by mouth daily. ??? UNABLE TO [...] Take 1 tablet by mouth daily. ??? fluticasone furoate-vilanteroL (Breo Ellipta) 200-25 mcg/dose Disk with Device Inhale 1 puff into the lungs Daily. No current facility-administered medications on file prior to visit. BP 137/57 (Patient Position: Sitting) Pulse 62 Temp 36.3 ??C (97.3 ??F) (Temporal) Resp 18 Ht 174.8 cm (5' 8.82) Wt 73.5 kg (162 lb 0.6 oz) SpO2 98% BMI 24.05 kg/m?? Physical exam: He appears comfortable. He is alert, oriented and in no distress. He has mildly diminished breath sounds at the left base. His lungs are clear, his heart is regular and his abdomen is not tender or distended Imaging: I reviewed with the patient his chest CT dated January 29, which demonstrates a stable moderate pleural effusion Assessment: 71-year-old man now 10 months removed from a thoracoscopic left upper lobectomy, with arecurrent left pleural effusion. I advised him that although this could be reactive or inflammatoryin nature that a malignant effusion was not completely ruled out by the thoracenteses he has undergone. We discussed various options including continued surveillance, a third attempt at drainage and thoracoscopic pleural biopsy. I recommended thoracoscopic pleural biopsy with possible pleurodesis and he is in agreement. Plan: Left thoracoscopy with pleural biopsy and possible pleurodesis GILMER GUTIÉRREZ MD documented in this encounter Plan of Treatment Scheduled Procedures Name Priority Associated Diagnoses Date/Ti ny ELECTROPHYSIOLOGY PROCEDURE Persistent atrial fibrillation CARDIOVERSION-ELECTIVE (WRVU 2) persistent atrial fibrillation TRANSESOPHAGEAL ECHOCARDIOGR AM (WRVU 2.3) persistent atrial fibrillation documented as of this encounter Results * (ABNORMAL) Comprehensive metabolic panel (non-fasting) (04/16/2022 2:10 PM EST) Glucose 98 65 - 199 mg/dL [facility] Comment:Diabetes: >=200 mg/d L plus symptoms Blood Urea Nitrogen 19 10 - 20 mg/dL [facility] Creatinine 1.20 0.80 - 1.50 mg/dL [facility] Sodium 135 135 - 145 mmol/L [facility] Potassium 4.8 3.5 - 5.0 mmol/L [facility] Comment: Please note: ??Patients with WBC >100,000 may have falsely elevated Potassium levels. ??For accurate Potassium quantification in these patients send serum separator tube (gold top) for subsequent determinations. ??Contact the Clinical Chemistry Laboratory if there are any questions. Chloride 97(L) 98 - 107 mmol/L [facility] Carbon Dioxide 25 22 - 31 mmol/L [facility] Anion Gap 13 5 - 15 mmol/L [facility] Calcium 10.7(H) 8.5 - 10.5 mg/dL [facility] Protein, Total 7.3 6.1 - 8.0 g/dL [facility] Albumin 3.8 3.2 - 5.2 g/dL [facility] Aspartate Aminotransferase 11 0 - 39 unit/L [facility] Alanine Aminotransferase 13 0 - 55 unit/L [facility] Alkaline Phosphatase 202(H) 40 - 130 unit/L [facility] Bilirubin, Total 0.5 0.2 - 1.3 mg/dL [facility] Est Glomerular Filtration Rate 64 >=60 mL/min/1. 73 m?? [facility] Comment: This patient's estimated GFR was [...] Lab Gilmer Gutiérrez MD CHEMISTRY [address]A BLES [facility] [place] [address] documented in this encounter Visit Diagnoses Diagnosis Pleural effusion Unspecified pleural effusion Squamous cell carcinoma of left lung documented in this encounter Care Teams Carpenter Refrigerator Relationship Specialty Start Date End Date Tami Olivia [address] [place] [address] PCP - General Family Medicine 12/30/20 documented as of this encounter
--- OUTSIDE RECORDS SUMMARY | 2023-12-11 17:35 | XMS_ITS | Encounter Summary ---
Author Organization [facility] [place] [address] Care Team Providers Care Medical Laboratory Assistant Name Role Phone aTmi Olivia Primary Care Provider [phone] Reason for Referral * Home Health Care (Routine) - Closed Specialty Diagnoses / Procedures Referred By Bert gautam Referred To Contact Diagnoses Mass of upper lobe of left lung Gilmer Foster MD [facility] [place] [address] Referral ID Status Reason Start Date Expiration Date V isits Requested Visits Authorized [id number] Closed Consult, Test & Treat 02/10/2022 08/09/2022 999 999 Reason for Visit * Auth/Cert (Routine) Specialty Diagnoses / Procedures Referred By Bert gautam Referred To Contact Diagnoses Pleural effusion, not elsewhere classified Malignant neoplasm of unspecified part of left bronchus or lung pleural effusion Procedures PRO THORACOSCOPY WITH BIOPSY OF PLEURA PRO BRONCHOSCOPY, DIAGNOSTIC THORACOSCOPY; WITH BIOPSY(IES) OF PLEURA (WRVU 4.58) BRONCHOSCOPY, DIAGNOSTIC (WRVU 2.78) Gilmer Foster MD [facility] [place] [address] [facility] Referral ID Status Reason Start Date Expiration Date Visits Re quested Visits Authorized [id number] 1 1 Encounter Details Date Type Department Care Team (Latest Contact Info) Description 02/08/2022 10:50 AM EST - 02/10/2022 1:20 AM EST Hospital Encounter [place] [address] Gilmer Foster MD [facility] [place] [address] Pleural effusion; Squamous cell carcinoma of left lung; Mass of upper lobe of left lung [...] Sign Reading Time Taken Comments Blood Pressure 97/60 02/09/2022 11:27 PM EST Pulse 63 02/09/2022 11:27 PM EST Temperature 36.5 ??C (97.7 ??F) 02/09/2022 11:[address] Respiratory Rate 16 02/09/2022 11:27 PM EST Oxygen Saturation 95% 02/09/2022 11:27 PM EST Inhaled Oxygen Concentration - - [...] Hospital Course: Rajan Marquez was admitted to [facility] on 02/08/2022 via the SD. He was [...] have questions please contact the health healthcare project manager that requested your imaging first. Chest PA & Lateral (Generic) (Exam End: 02/10/2022 5:23 AM) Impression Enlarging left hydropneumothorax. Thank you for letting us participate in the care of this patient. If you are a health care provider and have any questions regarding this report, please contact the number below. For patients who have questions please contact the health healthcare project manager that requested your imaging first. Electronically signed by: Maryann Magallanes MD, [facility] ([phone]), at 02/10/2022 8:05 AM Pending Studies and [...] a nurse in the Thoracic Clinic at [phone]. After hours or on weekends or holidays please call: [phone] and ask to speak to the Thoracic [...] please call the thoracic surgery clinic at [phone]. Driving: No driving for 1 week or [...] the Thoracic Clinic or the Thoracic Surgeon nutrition faculty member after hours. Please take over the counter [...] our office if you have any questions. [phone] Future Appointments Date Time Provider Department Center 02/10/2022 5:00 AM [facility] DX ROOM 9 MH Xray [facility] Rad General Instructions Keep the Express Mini in an upright position and make sure the tubing stays firmly attached to the end of your chest tube. If it becomes disconnected you will need to reconnect it immediately and tape it securely. If you cannot get it reconnected you will need to go to the Emergency Room at [facility] immediately. Be sure to not let the [...] and contact Dr. Gilmer Cardozo office at if the amount increases by [...] contact the Thoracic Surgery office promptly at [phone]. Opioid PDMP 02/13/2021 [place] PDMP Query Date [...] Expires XR Chest PA & Lateral (Generic) [[id number] Custom] 02/23/2022 08/25/2022 Process Instructions: Scheduling Instructions: Questions: Reason for exam and clinical history: s/p left VATS pleural biopsy Clinical information / bryan questions for radiologist: ?interval change Where will study be performed?: [facility] Radiology Portable exam?: Stat read required?: Date of injury if applicable: Requested Time: XR Chest PA & Lateral (Generic) [[id number] Custom] 02/24/2022 (Approximate) 08/26/2022 Process Instructions: Scheduling Instructions: Questions: Reason for exam and clinical history: s/p left vats pleural biopsy Clinical information / byran questions for radiologist: eval for ptx and or effusion Where will study be performed?: [facility] Radiology Portable exam?: Stat read required?: Date of injury if applicable: Requested Time: Referral to Home Health [REF34 Custom] As directed Process Instructions: If no progress note charted, please enter Clinical details in comments. Scheduling Instructions: Comments: Please evaluate Rajan Marquez for admission to Home Health. [address] [facility] [address] Phone Number: mobile [phone] Date of : 1950 Inpatient DOCUMENTATION FOR VNA SERVICES (INCLUDING THOSE PATIENTS WITH MEDICARE COVERAGE REQUIRING HOME VNA SERVICES AND/OR HOSPICE SERVICES) PATIENT'S LOCATION: Rajan Bravo [facility] [address] [place] [phone] Cellophaner's Name: self/family In discussion with the attending physician, it is certified that this patient is under their care and that they, or a Nurse Practitioner,Clinical Nurse specialist or Physician Operating Room Scheduler who is working directly with them, had [...] Emergency Room or the Emergency Room at [facility] immediately. Check the Atrium Express Mini 500 [...] your scheduled appointment. HOME HEALTH CARE AGENCY: [facility] [address] [address] [place] [address] PHONE: [phone] FAX: [phone] Start of care: within 24 to 48 hours of discharge Please note that any additional orders needs or changes will need to be obtained from this patient's PCP: Tami Olivia [address] / [place] [address] All VNA agencies which cover the area of patient's residence have been reviewed, either verbally crow writing, and patient/family have chosen the home health care agency noted Questions: Disciplines Requested: Nursing Provider Contact Information: Primary Care Provider: Tami Olivia [phone] Discharge References/Attachments: Discharge References/Attachments None For questions regarding this document or issues relating to this hospitalization on the Thoracic Surgery Service, please contact Dr. Foster's office at . Signed: STEVE Black 02/10/2022 Thoracic Surgery [facility] CC: PCP: Tami Olivia Referring: Tami Olivia [address] [place] [address] documented in this encounter Discharge Instructions * [...] to go to the Emergency Room at [facility] immediately. Be sure to not let the [...] and contact Dr. Gilmer Cardozo office at if the amount increases by [...] contact the Thoracic Surgery office promptly at [phone]. * Patient Instructions* Camilo Stevenson PA - 02/09/2022 11:12 AM EST Call if you have a fever of greater than 101 degrees, shaking chills, develop redness or drainage from your incision site(s), or if you have questions. During normal business hours, Saturday- Saturday 8:00 a.m.-5:00 p.m., please call to speak to a nurse in the Thoracic Clinic at [phone]. After hours or on weekends or holidays please call: [phone] and ask to speak to the Thoracic [...] please call the thoracic surgery clinic at [phone]. Driving: No driving for 1 week or [...] the Thoracic Clinic or the Thoracic Surgeon nutrition faculty member after hours. Please take over the counter [...] our office if you have any questions. [phone] Future Appointments Date Time Provider Department Center 02/10/2022 5:00 AM [facility] DX ROOM 9 Xray [facility] Rad documented in this encounter Medications [...] Paredes RN - 02/10/2022 1:16 PM EST [facility] Short Stay Unit Discharge Note All relevant discharge milestones have been met by the patent. After Visit Summary and discharge teaching reviewed with the patient. IV access has been discontinued. All personal belongings have been returned to the patient/family upon their departure from the unit. Patient has been discharged to home The patient has been discharged without VNA services. * Judith Del Angel RN - 02/09/2022 11:04 AM EST Report from Debbie. Arrived to room. CT to water seal with small, known, intermittent air leak. CT dressing with scant sanguineous drainage, L back dsg c/d/i. Oriented to room and placed on monitoring system. Awaiting lunch meal. WCM. * Bi Baez MD - 02/09/2022 8:53 AM EST [facility] Department of Thoracic Surgery Inpatient Progress Note Patient Name: Rajan Marquez Patient : 1950 Patient Patient Location: [facility] Attending Surgeon: GILMER FOSTER ID: Rajan Marquez [...] Admission (Current) from 02/08/2022 in PACU at [facility] OfficeVisit from 01/29/2022 in Thoracic Surgery at [facility] Weight 75.8 kg (167 lb) 1 02/08/2022 [...] Result Value Ref Range Surgical Pathology Report [id number] Location: OR; OR22; A The signing pathologist has (i) examined the relevant preparation(s) for the specimen(s) and (ii) rendered or confirmed the diagnosis(es). . Frozen Section FROZEN SECTION DIAGNOSIS AFS - Left pleural biopsy, for frozen section (2 blocks): Atypical cells, cannot exclude malignancy, defer to permanent. 02/08/22 13:26 Electronically signed by: Malia Lacy MD Verified: 02/08/2022 13:50 Pathologist Performed at: -[facility] Dept. of Pathology, [place] [address] Raw Finish Mill Operator: Maria Ines Marrufo MD, FCAP, [place] Certificate: [id number] This intraoperative consultation should be interpreted as [...] have questions please contact the health healthcare project manager that requested your imaging first. Micro: Procedure Component Value Units Date/Time Fungus culture Pleural Fluid [[id number]] Collected: 02/08/221253 Lab Status: Preliminary result Specimen: Pleural Fluid Updated: 02/09/22 08 Fungus Culture No Fungus isolated to date Body Fluid Culture, Aerobic & Anaerobic Pleural Fluid [[id number]] Collected: 02/08/221253 Lab Status: Preliminary result Specimen: Pleural Fluid Updated: 02/09/2243 Body Fluid Culture, Aerobic [[id number]] Collected: 02/08/221253 Lab Status: Preliminary result Specimen: Pleural Fluid [...] Baez MD 02/09/2022 Thoracic Surgery Service Pager [phone] * Debbie Pride RN - 02/09/2022 8:44 [...] dressing is CDI. 0700: Report given to LOAD DISPATCHER LOCALDebbie VASQUEZ. Care assumed. * Juanita Sotomayor RN - 02/08/2022 5:45 PM EST 17:45 Break coverage. Pt reports he is comfortable and has no needs at this time. Awaiting inpatient assignment. documented in this encounter H&P Notes * Malia Nieto MD - 02/08/2022 11:30 AM EST Thoracic Surgery Preop NAME: Rajan Marquez DATE: 02/08/22 SURGEON: GILMER FOSTER PROCEDURE: Left [...] IR Thoracentesis Left 11/08/2021 Ramírez Ramirez MD [facility] INTERVENTIONL RAD ??? PRO BRONCHOSCOPY, DIAGNOSTIC N/A 03/29/2021 BRONCHOSCOPY, DIAGNOSTIC (WRVU 2.78) performed by Gilmer Foster MD at [facility] OR ? ? PRO INJECTION ANES [...] Nieto MD 02/08/2022 Thoracic Surgery Service Pager [phone] documented in this encounter Miscellaneous Notes * [...] information for follow-up Home Health & H[facility], [place] [address] [facility] [address] Transportation: family or friend will provide Wheelchair van/Ambulance? No Functional status prior to admission: Independent Home Environment: Others in the home: significant other. Current Living Arrangements: home/apartment/condo. Accessibility Concerns:none noted. Current Functional Ability: DME used at home: none DME Needed at Discharge: Mini atrium Patient is insured through: Primary Insurance: [facility] MANAGED MEDICARE Payor: [facility] MANAGED MEDICARE / Plan: [facility] / Product Type: *No Producttype* / Secondary Insurance: N/A Prescription Coverage: Yes This plan was formulated with input from patient, and team. All are in agreement with plan. Natanael Sims RN, BSN CM Case Management [phone] * Care Management - Melania Salinas RN - 02/09/2022 2:26 PM EST RN/CM has reviewed with provider team. Admit: 02/08/2022 with anticipated discharge: 02/10/2022. Pt remains OBS status at this time. Pending UM review later today. Christie Salinas RN (Jonas) RN/CM - Cellphone: [phone] Pager: [phone] Covering Service RN/CM * Initial Assessments - Melania Salinas RN [...] surrogate would be surrogate decision maker per [place] surrogate decision making law. (Only good for 180 days) Any patient receiving care in [place] must abide by [place] law. The hierarchy for surrogate decision making [...] (i) The agent with financial power of criminal defense attorney or a conservator appointed in accordance [...] Current DME: none Home Address confirmed as: [address] [place] [id number] Social & Family Supports: All names listed [...] points: Addiction likely Health/Prescription Coverage: Primary Insurance: [facility] MANAGED MEDICARE Payor: [employer] MANAGED MEDICARE / Plan: [facility] COMPLETE / Product Type: *No Producttype* / Secondary Insurance: N/A ; Prescription Coverage: Yes Preferred Pharmacy: [id number] - [place], [place] - [address] [place] [id number] [address] Status: Patient is a : No Primary Care Provider listed: Tami Olivia [phone] Patient/Caregiver Goals of Treatment: Return home with [...] are placed. Patient requests referral to : [facility] Blossom Vasquez [facility] [address] PHONE: [phone] FAX: [phone] Expected date of discharge: 02/09/2022 vs 02/10/2022 Referral routed to the Clinic Nurse for matching with agency/vendor and to provide [...] planningCecilia Salinas RN (Jonas) RN/CM - Cellphone: [phone] Pager: [phone] Covering Service RN/CM * Op Note - Gilmer Foster MD - 02/08/2022 12:40 PM EST [facility] Operative Note Patient Name: Rajan Marquez : [id number] MR#: [id number] Case Date: 02/08/2022 Surgeon: Surgeon(s) and Role: [...] SPECIMEN TO PATHOLOGY Left pleural biopsy OR pleural effusion Left pleural biopsy biopsy YES, Please perform frozen section 02/08/2022 1:01 PM Number of tissue samples (in container) 1 Time specimen removed from patient: 1:00 PM CYTOPATHOLOGY NON-GYNECOLOGICAL Left pleural fluid OR 02/08/2022 1:10 PM Pertinent clinical data and significant therapy: pleural effusion Clinical impression: pleural effusion Procedure Type: Other (please specify in Comments Field below) Specimen Type: Pleural fluid (thoracentesis) Description and source of specimen: Left pleural fluid SPECIMEN TO PATHOLOGY Left pleural biopsy OR pleural effusion Left pleural biopsy biopsy 02/08/2022 1:15 PM Time specimen removed from patient: 1:15 PM Number of tissue samples (in container) 1 Drains: 28 Kuwaiti chest tube, left Surgical Closure: Primary Closure [...] copiously with warm normal saline. A 28 Kuwaiti chest tube was placed through the anterior [...] TO PATHOLOGY Routine 02/08/2022 1:15 PM EST NON-BEHAVIOR ANALYST FINAL REPORT Routine 02/08/2022 1:10 PM EST [...] Routine 02/08/2022 12:54 PM EST Bronchoscopy, Diagnostic (14625) 02/08/2022 12:00 PM EST Pleural effusion Squamous [...] have questions please contact the health healthcare project manager that requested your imaging first. ? Electronically signed by: Marcus Edwards MD, [facility] ([phone]), at 03/06/2022 2:27 PM Narrative 03/06/2022 2:27 [...] who have questions please contactthe health healthcare project manager that requested your imaging first. Electronically signed by: Marcus Edwards MD, [facility]([phone]), at 03/06/2022 2:27 PM Gilmer Foster MD [...] have questions please contact the health healthcare project manager that requested your imaging first. ? Electronically signed by: Maryann Magallanes MD, [facility] ([phone]), at 02/10/2022 8:05 AM Narrative 02/10/2022 8:05 [...] who have questions please contactthe health healthcare project manager that requested your imaging first. Electronically signed by: Maryann Magallanes MD, [facility]([phone]), at 02/10/2022 8:05 AM Gilmer Foster MD [...] have questions please contact the health healthcare project manager that requested your imaging first. ? Narrative [...] who have questions please contactthe health healthcare project manager that requested your imaging first. Gilmer Foster MD IMG DX ORDERABLE S * Specimen to Pathology (02/08/2022 1:15 PM EST) AP Specimen 02/08/2022 1:15 PM EST 02/08/2022 1:15 PM EST Narrative [facility] - 02/08/2022 1:15 PM EST Specimen requisition ordered. ??Separate Pathology report to follow Gilmer Foster MD PATHOLOGY/CYTOLO GY ORDERABLES [facility] [place] [address] * Non-Ground Wirer Final Report (02/08/2022 1:10 PM EST) Diagnosis Discussion [id number] ? Location: [facility]; A The signing pathologist has (i) examined the relevant preparation(s) for the specimen(s) and (ii) rendered or confirmed the diagnosis(es). . ? Non-Ground Wirer Final DIAGNOSIS See Discussion Electronically signed by: ?Asher FLORES, Rory Swann Verified: ??02/10/2022 17:36 ??Cytopathologis t Performed at: ??-[facility] Dept. of Pathology, [place] [address] Raw Finish Mill Operator: Maria Ines Marrufo MD, AP, ??CLIA Certificate: [id number] DISCUSSION Pleural fluid: left (thoracentesis) - Predominantly [...] Cell Block 1. 02/10/2022 5:36 PM EST [facility] LEFT PLEURAL FLUID / Unknown 02/08/2022 1:10 PM EST 02/08/2022 1:10 PM EST Gilmer Foster MD PATHOLOGY/CYTOLO GY ORDERABLES Performing Organization Address [facility] de Phone Number [facility] [place] [address] * Cytopathology Non-Gynecological (02/08/2022 1:10 PM EST) AP Specimen 02/08/2022 1:10 PM EST 02/08/2022 1:10 PM EST Narrative [facility] - 02/08/2022 1:10 PM EST Specimen requisition ordered. ??Separate Pathology report to follow Gilmer Foster MD PATHOLOGY/CYTOLO GY ORDERABLES Performing Organization Address [facility] Co de Phone Number [facility] [place] [address] * Surgical Pathology Report (02/08/2022 1:01 PM EST) Final Diagnosis [id number] ? Location: [facility]; The signing pathologist has (i) examined the [...] DO Verified: ??02/16/2022 10:09 ??Pathologist Performed at: ??-[facility] Dept. of Pathology, [place] [address] Raw Finish Mill Operator: Maria Ines Marrufo MD, FCAP, ??CLIA Certificate: [id number] DISCUSSION No malignancy is identified. ??The morphology [...] A2 ?CK20 ?Negative A2 ?CDX2 ?Negative A2 ?ELQ3nhej ?Negative A2 ?Calretinin ?Rare positive cell (high [...] of soft, pink-white membranous tissue fragments. Sections/Processing: Licensed Club Manager sections in 2 cassettes labeled B1-B2. ??sns ?Frozen Section FROZEN SECTION DIAGNOSIS AFS - Left pleural biopsy, ?? for frozen section (2 blocks): Atypical cells, cannot exclude malignancy, defer to permanent. 02/08/22 13:26 Electronically signed by: ?Malia Lacy MD Verified: ??02/08/2022 13:50 ??Pathologist Performed at: ??-[facility] Dept. of Pathology, [place] [address] Raw Finish Mill Operator: Maria Ines Marrufo MD, AP, ??CLIA Certificate: [id number] This intraoperative consultation should be interpreted as a preliminary diagnosis pending review of the entire specimen and special studies, if any. A final Surgical Pathology report will follow this preliminary Frozen Section report(s). 02/16/2022 10:09 AM [facility] Frozen Specimen 02/08/2022 1 :01 PM EST 02/08/2022 1:01 PM EST Pleura 02/08/2022 1:01 PM EST 02/08/2022 1:01 PM EST Gilmer Foster MD PATHOLOGY/CYTOLO GY ORDERABLES Performing Organization Address [facility]/ZIP Co de Phone Number [facility] [place] [address] [facility] [place] [address] * Specimen to Pathology (02/08/2022 1:01 PM EST) AP Specimen 02/08/2022 1:01 PM EST 02/08/2022 1:01 PM EST Narrative [facility] - 02/08/2022 1:01 PM EST Specimen requisition ordered. ??Separate Pathology report to follow Gilmer Foster MD PATHOLOGY/CYTOLO GY ORDERABLES Performing Organization Address City/[facility] de Phone Number [facility] [place] [address] * Flow Cytometry Report (02/08/2022 12:54 PM EST) Flow Cytometry Report [id number] ? Location: [facility]; [address] The signing pathologist has (i) examined [...] detected by flow analysis. Electronically signed by: ?Ruddy San MD Verified: ??02/09/2022 16:30 ??Hematopathologist Performed at: ??-[facility] Dept. of Pathology, [place] [address] Raw Finish Mill Operator: Maria Ines Marrufo MD, FCAP, ??CLIA Certificate: [id number] DISCUSSION Blasts based on CD45 expression and orthogonal light scatter, are not increased. The CD19 positive B-cells have a polytypic expression of surface immunoglobulin light chain ([place]:Lambda ratio at 1.7). The T-cells are an admixture of CD4+ and CD8+ T lymphocytes (ratio of 1.6). No loss or atypical intensity distributions are seen for any nixon T antigen (CD2, 3, 4+8, 5, 7). There is no increase in HL22-qktqrhnh/CD3-ne g NK cells. Flow analysis is an ancillary study. A definite diagnosis requires correlation with the morphologic features of this process and if necessary, correlation with other ancillary studies like immunohistochemistry , enzyme cytochemistry and/or cyto/ molecular genetics. This test was developed and its performance characteristics determined by the Clinical Flow Cytometry Laboratory at [facility]. It has not been cleared or approved [...] high complexity clinical laboratory testing. SPECIMEN PROCESSING [id number] Cells for immunophenotypic analysis were derived from [...] cytology but has ??recurred on each occasion. [facility] 02/08/2022 12:5 4 PM EST Gilmer Foster MD PATHOLOGY/CYTOLO GY ORDERABLES Performing Organization Address [facility]/ZIP Co de Phone Number [facility] [place] [address] * Body Fluid Culture, Aerobic (02/08/2022 12:54 PM EST) Body Fluid Culture No growth [facility] Gram Stain Cytocentrifuge Gram Stain performed No Neutrophils seen. No microorganisms seen. [facility] Pleural Fluid 02/08/2022 12: 54 PM EST 02/08/2022 2:17 PM EST Comment:Pleural fluid Narrative Resulting Agency Comment Spec In Lab Gilmer Foster MD MICROBIOLOGY - G ENERAL ORDERABLES Performing Organization Address [facility] Co de Phone Number [facility] [place] [address] * Immunophenotyping Flow Cytometry (02/08/2022 12:54 PM EST) Immunophenotyping Flow See Comment [facility] Comment: When completed by the Pathologist, the Flow Cytometry Report ([id number]) will display under the Pathology Results section within [facility]. Other 02/08/2022 12:5 4 PM EST 02/08/2022 2:07 PM EST Narrative Resulting Agency Comment Spec In Lab Gilmer Foster MD HEMATOLOGY ORDER PHILOMENA Performing Organization Address City/[facility] Co de Phone Number [facility] [place] [address] * AFB culture Pleural Fluid (02/08/2022 12:54 PM EST) Acid Fast Bacilli Culture No Acid Fast Bacilli isolated If active tuberculosis is suspected, the patient should be on [employer]. Call Infection Prevention for assistance if needed. [facility] Acid Fast Stain No Acid Fast Bacilli seen [facility] Pleural Fluid 02/08/2022 12: 54 PM EST 02/08/2022 2:17 PM EST Comment:Pleural fluid Narrative Resulting Agency Comment Spec In Lab Gilmer Foster MD MICROBIOLOGY - G ENERAL ORDERABLES Performing Organization Address City/[facility]/[place] [address] * Fungus culture Pleural Fluid (02/08/2022 12:54 PM EST) Fungus Culture No Fungus isolated [facility] Pleural Fluid 02/08/2022 12: 54 PM EST 02/08/2022 2:17 PM EST Comment:Pleural fluid Narrative Resulting Agency Comment Spec In Lab Gilmer Foster MD MICROBIOLOGY - G ENERAL ORDERABLES Performing Organization Address [facility] [place] [address] documented in this encounter Visit Diagnoses Diagnosis Pleural effusion- Primary Unspecified pleural effusion Pleural effusion Unspecified pleural effusion Squamous cell carcinoma of left lung Mass of upper lobe of left lung Squamous cell carcinoma of [...] Given 02/09/2022 11:26 PM EST 1,000 mg docusate sodium (Colace) capsule 100 mg 100 mg, Oral, 3 TIMES DAILY, First dose on Sat02/08/22 at 2100, Until Discontinued, Routine Given 02/09/2022 9:00 PM EST 100 mg Given 02/09/2022 5:28 PM EST 100 mg Given 02/09/2022 8:27 AM EST 100 mg heparin (porcine) (5,000 units/1 mL) subcutaneous injection 5,000 Units 5,000 Units, Subcutaneous, GREEN END DEPARTMENT SUPERVISOR TO O.R., 1 dose, On Sat02/08/22 at 1130, Not within 60 minutes of [...] shown in EST. Scheduled Medication Order 02/08/2022 02/09/202202/1002/10/2022 acetaminophen (Tylenol) tablet 1,000 mg (COMPLETED) 1,000 [...] injection 5,000 Units (COMPLETED) 5,000 Units, Subcutaneous, GREEN END DEPARTMENT SUPERVISOR TO O.R., 1 dose, On Stephanie 02/08/22 at 1130, Not within 60 minutes of placing epidural catheter., Day of Surgery (Day of Procedure), Routine 1130 (Given - Provider: Marcus Kong, CHRISTINA) hydrOXYchloroQUINE (Plaquenil) tablet 200 mg 200 mg, [...] for 12 hours., Recovery (Recovery-Hospital Unit), Routine 182 (Patch Applied - Provider: Loreta Decker RN) 1728 (Patch Applied - Provider: Judith Del Angel RN)1830 (Not Given - Provider: Judith Del Angel [...] on Sat02/09/22 at 0900, Until Discontinued, Routine 08 (Given - Provider: Debbie Pride RN) 0835 [...] Routine 1728 (Given - Provider: Judith Del Angel, CHRISTINA) sodium chloride 0.9 % (flush) (BD PosiFlush Normal Saline 0.9) flush 5 mL 5 mL, Intravenous, 2 TIMES DAILY, First dose on Sat02/08/22 at 2100, Until Discontinued, Recovery (Recovery-Hospital Unit), Routine 204 (Given - Provider: Loreta Decker RN) 0828 (Given - Provider: Debbie Pride RN)2100 (Not Given - Provider: Janny Diaz RN - Reason: See comment) 0837 (Given - Provider: Malia Paredes RN) tamsulosin (Flomax) capsule 0.4 mg 0.4 [...] 0.5% injection (CANCELED) ONCE PRN, Starting on Sat02/08/22 at 1338, Until 02/10/22 at 1530, Intra-Operative [...] Unit) documented in this encounter Care Teams Medical Laboratory Assistant Relationship Specialty Start Date End Date Tami Olivia [address] [place] [address] PCP - General Family Medicine 12/30/20 documented as of this encounter
--- OUTSIDE RECORDS SUMMARY | 2023-12-11 17:35 | XMS_ITS | Encounter Summary ---
Author Organization [facility] Address [facility] [place] [address] Care Team Providers Care Dynamics Ax Solution Architect Name Role Phone Tami Olivia Primary Care Provider Encounter Details Date Type Department Care Team (Late st Contact Info) Description 12/07/2021 Ancillary Procedure Radiology Library at [facility] [place] [phone] Tami Olivia [address] [place] [address] Social History Tobacco Use Types Packs/Day Years [...] Associated Diagnosis Comments FILM LIBRARY STORAGE ONLY DX CHEST Routine 12/07/2021 12:00 AM EDT documented in this encounter Results * Film Library- Storage Only DX Chest (12/07/2021 12:00 AM EDT) Narrative [facility] - 12/16/2021 12:57 AM EDT This exam is auto-finalizing. It's purpose is for storage only. Tami Olivia [facility] FILM LIBRARY OR DERABLES DH [place], [place] documented in this encounter Visit Diagnoses Not on filedocumented in this encounter Care Teams Dynamics Ax Solution Architect Relationship Specialty Start Date End Date Tami Olivia [address] [place] [address] PCP - General Family Medicine 12/30/20 documented as of this encounter
--- OUTSIDE RECORDS SUMMARY | 2023-12-11 17:35 | XMS_ITS | Encounter Summary ---
Author Organization [facility] Address [facility] [place] [address] Care Team Providers Care Audio Installer Name Role Phone Tami Olivia Primary Care Provider Encounter Details Date Type Department Care Team (Late st Contact Info) Description 12/11/2021 Ancillary Procedure Radiology Library at [facility] [place] [phone] Tami Olivia [address] [place] [address] Social History Tobacco Use Types [...] FILM LIBRARY STORAGE ONLY DX CHEST Routine 12/11/2021 12:00 AM EDT documented in this encounter Results * Film Library- Storage Only DX Chest (12/11/2021 12:00 AM EDT) Narrative [facility] - 12/16/2021 12:56 AM EDT This exam is auto-finalizing. It's purpose is for storage only. Tami Olivia [facility] FILM LIBRARY OR DERABLES DH [place], [place] documented in this encounter Visit Diagnoses Not on filedocumented in this encounter Care Teams Audio Installer Relationship Specialty Start Date End Date Tami Olivia [address] [place] [address] PCP - General Family Medicine 12/30/20 documented as of this encounter
--- OUTSIDE RECORDS SUMMARY | 2023-12-11 17:35 | XMS_ITS | Encounter Summary ---
Author Organization [facility] Address [facility] [place] [address] Care Team Providers Care Geospatial Program Management Officer Name Role Phone Tami Olivia Primary Care Provider Encounter Details Date Type Department Care Team (Late st Contact Info) Description 11/01/2021 [place] [address] Ramon Manrique PA [facility] DR [place]VENTIONAL [place] [address] Social History Tobacco Use Types Packs/Day Years Used Date Smoking Tobacco: Former Cigarettes 2 50 1 04/17/1970 - 02/14/2021 Smokeless Tobacco: Never Comments:1 ppd for the past year Sex and Gender Information Value Date Recorded Sex Assigned at Not on file Gender Identity Not on file Sexual Orientation Not on file documented as of this encounter H&P Notes * Ramon Manrique PA - 11/01/2021 12:14 PM EDT Images from the original note were not included. Interventional Radiology Focused Pre-procedure H&P: PCP: Tami Olivia Procedure indication: Pleural fluid on chest CT, dyspnea on exertion IR workflow: Procedure request received through the Interventional Radiology eDH order queue. History of present illness: Per chart review, Rajan Marquez is a 70 y.o. male who presents to Interventional Radiology to undergo left thoracentesis in setting of lung squamous cell carcinoma. This is a patient who underwent left upper VATS lobectomy of stage IA3 mass in March 2021 who presented to surveillance followup with CT demonstrating enhancing moderate pleural fluid collection. IR consulted for diagnostic and therapeutic sampling. Medical history notable for CAD on rivaroxaban, tobacco use, COPD, BPH, HTN. Remainder of patient'smedical and surgical history, allergies, medications, and social/family history obtained below as previously outlined in patient's medical record. IR history: none Imaging: Assessment: 70 y.o. male with pleural fluid following left upper lobectomy presenting to Interventional Radiology for thoracentesis. Plan Planned procedure: Left thoracentesis Labs to be performed day of procedure: Hemogram Sedation: Fentanyl only Prophylactic antibiotic : None Contrast: No contrast Additional medications for procedure: Lidocaine Consent: Pending Medications to discontinue (and days held): None Cytopathology presence needed: No Case Urgency:: G- Other (non E or F elective cases) Labs: Lab Results Component Value Date HGB 12.9 (L) 04/01/2021 HCT 38.6 (L) 04/01/2021 WBC 9.8 (H) 04/01/2021 PLATELET 176 04/01/2021 BUN 22 (H) 04/01/2021 CREATININE 1.01 10/30/2021 ALBUMIN 4.4 02/13/2021 BILITOT 0.4 02/13/2021 AST 16 02/13/2021 ALT 14 02/13/2021 ALKPHOS 55 02/13/2021 Allergies: Cat dander and Dog dander Medications: Current Outpatient Medications on File Prior [...] Take 200 mg by mouth Daily. ??? fluticasone furoate-vilanteroL (Breo Ellipta) 200-25 mcg/dose Disk with Device Inhale 1 puff into the lungs Daily. ??? albuterol sulfate (Proair Digihaler) 90 mcg/actuation aero powdr breath act w/sensor 4 times daily as needed. ??? cholecalciferol, Vitamin D3, (Vitamin D3) 1,000 unit Tablet Take 1 tablet by mouth daily. No current facility-administered medications on file prior to visit. Past medical/surgical history: Patient Active Problem List Diagnosis Code ??? Mass of upper lobe of left lung R91.8 Past Medical History: Diagnosis Date ??? BPH (benign prostatic hyperplasia) ??? COPD (chronic obstructive pulmonary disease) ??? Coronary artery disease ??? GERD (gastroesophageal reflux disease) ??? Hypertension ??? Synovitis Past Surgical History: Procedure Laterality Date ??? APPENDECTOMY ??? PRO BRONCHOSCOPY, DIAGNOSTIC N/A 03/29/2021 BRONCHOSCOPY, DIAGNOSTIC (WRVU 2.78) performed by Gilmer Gutiérrez MD at [facility] MAIN OR ? ? PRO INJECTION ANES AGENT &/ STEROID INTERCOSTAL NERVE SINGLE LEVEL Left 03/29/2021 NERVE BLOCK, INTERCOSTAL NERVE (WRVU 1.18) performed by Gilmer Gutiérrez MD at [facility] OR ??? PRO THORACOSCOPY SURG LOBECTOMY Left 03/29/2021 @THORACOSCOPY,SURGICAL,W\LOBECTOMY,TOTAL OR SEGMENTAL (WRVU 24.64) performed by Johana Gutiérrez MD at [facility] MAIN OR ??? PRO THORACOSCOPY WITH MEDIASTINAL AND REGIONAL LYMPHADENECTOMY 03/29/2021 @THORACOSCOPY, SURG; W/MEDIASTINAL& REGIONAL LYMPHADENECTOMY (WRVU 4.12) performed by Gilmer Gutiérrez MD at [facility] OR ??? PRO THORACOSCOPY WITH WEDGE RESECTION AND ANATOMIC LUNG RESECTN Left 03/29/2021 @THORACOSCOPY, SURG; W/DX WEDGE RESC W/ANATOMIC LUNG RESC (WRVU 3) performed by Johana Gutiérrez MD at [facility] OR Social history and habits: Social History Tobacco Use ??? Smoking status: Former Smoker Packs/day: 2.00 Years: 50.00 Pack years: 100.00 Quit date: 02/14/2021 Years since quittin.7 ??? Smokeless tobacco: Never Used ??? Tobacco comment: 1 ppd for the past year Vaping Use ??? Vaping Use: Never used Significant family history: Family History Problem Relation Age of Onset ??? Myocardial Infarction Father Pertinent ROS: as per HPI Physical exam: Pending (to be performed in interventional radiology the day of procedure) ASA: Pending (to be assessed in interventional radiology the day of procedure) Mallampati class: Pending (to be assessed in interventional radiology the day of procedure) 11/01/2021 STEVE Jackson documented in this encounter Plan of Treatment Scheduled Procedures Name Priority Associated Diagnoses Date/Ti me ELECTROPHYSIOLOGY PROCEDURE Persistent atrial fibrillation CARDIOVERSION-ELECTIVE (WRVU 2) persistent atrial fibrillation TRANSESOPHAGEAL ECHOCARDIOGR AM (WRVU 2.3) persistent atrial fibrillation documented as of this encounter Results * (ABNORMAL) Hemogram (11/08/2021 10:27 AM EDT) White Blood Cell 8.8 4.0 - 9.5 x10(3)/mc L [facility] Red Blood Cell 4.28(L) 4.58 - 5.54 x10(6)/mc L [facility] Hemoglobin 13.1(L) 13.7 - 16.5 g/dL [facility] Hematocrit 38.3(L) 40.5 - 48.5 % [facility] Mean Cell Volume 89.5 82.9 - 93.[address] [facility] Mean Cell Hemoglobin 30.6 27.5 - 32.[address] [facility] Mean Cell Hemoglobin Concentration 34.2 32.0 - 35.7 g/dL [facility] Platelet 287 145 - 357 x10(3)/mc L [facility] RDW Standard Deviation 43.4 36.0 - 45.[address] [facility] RDW coefficient of variation 13.2 11.4 - 13.8 % [facility] Mean Platelet Volume 9.3 7.6 - 12.[address] [facility] NRBC% auto 0.0 % [facility] NRBC Absolute 0.000 0.000 - 0.000 x10(3)/mc L [facility] Blood 11/08/2021 10:2 7 AM EDT 11/08/2021 10:31 AM EDT Narrative Resulting Agency Comment Spec In Lab Sloan Parker DO HEMATOLOGY ORDERABLE S [facility] [place] [address] documented in this encounter Visit Diagnoses Diagnosis Squamous cell carcinoma of left lung documented in this encounter Care Teams Geospatial Program Management Officer Relationship Specialty Start Date End Date Tami Olivia [address] [place] [address] PCP - General Family Medicine 12/30/20 documented as of this encounter
--- OUTSIDE RECORDS SUMMARY | 2023-12-11 17:36 | XMS_ITS | Encounter Summary ---
Author Organization [facility] Address [facility] [place] [address] Care Team Providers Care General Worker Name Role Phone Tami Olivia Primary Care Provider [phone] Reason for Visit * Reason Onset Date Comments Prior Authorization 04/14/2021 Molecular ca ncer testing - A covered benefit Encounter Details Date Type Department Care Team (Late st Contact Info) Description 04/14/2021 Telephone [place] [phone] Lesly Bond Prior Authorization (Molecular cancer testing - A covered benefit) Social History Tobacco Use Types Packs/Day Years Used Date Smoking Tobacco: Former Cigarettes 2 50 1 04/17/1970 - 02/14/2021 Smokeless Tobacco: Never Comments:1 ppd for the past year Sex and Gender Information Value Date Recorded Sex Assigned at Not on file Gender Identity Not on file Sexual Orientation Not on file documented as of this encounter Miscellaneous Notes * Telephone Encounter - Lesly Bond - 04/14/2021 4:43 PM EST Molecular cancer testing - A covered benefit: I received an e-mail from [employer] in [employer] ([id number]) requesting coverage review for CPT 19369 which is to be done on the patient's left lung cancer biopsy. Ordering provider is Gilmer Gutiérrez MD. Per a call to [facility] ( ), policy [id number] is an active HMO with a [place] PCP listed. [facility] is in-network. CPT 70619 is a covered benefit with no authorization needed. Ref: Dewey/[id number]. I will e-mail [employer] to let her know CPT 10284 is a covered benefit. documented in this encounter Plan of Treatment Scheduled Procedures Name Priority Associated Diagnoses Date/Ti me ELECTROPHYSIOLOGY PROCEDURE Persistent atrial fibrillation CARDIOVERSION-ELECTIVE (WRVU 2) persistent atrial fibrillation TRANSESOPHAGEAL ECHOCARDIOGR AM (WRVU 2.3) persistent atrial fibrillation documented as of this encounter Visit Diagnoses Not on filedocumented in this encounter Care Teams General Worker Relationship Specialty Start Date End Date Tami Olivia [address] [place] [address] PCP - General Family Medicine 12/30/20 documented as of this encounter
--- OUTSIDE RECORDS SUMMARY | 2023-12-11 17:36 | XMS_ITS | Encounter Summary ---
Author Organization [facility] [place] [address] Care Team Providers Care Wire Rigger Name Role Phone Tami Olivia Primary Care Provider [phone] Encounter Details Date Type Department Care Team (Late st Contact Info) Description 02/27/2021 Telephone Thoracic Surgery at [facility] [place] [phone] Megan Reza RN Social History Tobacco Use [...] Telephone Encounter - Megan Reza RN - 02/27/2021 7:35 AM EST TC to Mr. Marquez Hx: scheduled for Lobectomy on 03/29/2021, check in smoking cessation Mr. Marquez has been smoke free for at least 2 weeks and he is doing great!! HE will continue to use smoking cessation and look forward to his surgery, HE knows to call with any questions or concerns documented in this encounter Plan of Treatment Scheduled Procedures Name Priority Associated Diagnoses Date/Ti me ELECTROPHYSIOLOGY PROCEDURE Persistent atrial fibrillation CARDIOVERSION-ELECTIVE (WRVU 2) persistent atrial fibrillation TRANSESOPHAGEAL ECHOCARDIOGR AM (WRVU 2.3) persistent atrial fibrillation documented as of this encounter Visit Diagnoses Not on filedocumented in this encounter Care Teams Wire Rigger Relationship Specialty Start Date End Date Tami Olivia [address] [place] [address] PCP - General Family Medicine 12/30/20 documented as of this encounter
--- OUTSIDE RECORDS SUMMARY | 2023-12-11 17:36 | XMS_ITS | Encounter Summary ---
Author Organization [facility] Address [facility] [place] [address] Care Team Providers Care Cold Rolling Machine Setter Name Role Phone Tami Olivia Primary Care Provider [phone] Encounter Details Date Type Department Care Team (Latest Contact Info) Description 02/13/2021 2:30 PM EST Clinical Support Tobacco Treatment at [facility] [place] [address] Anali Benítez Cigarette nicotine dependence without complication Social History Tobacco Use Types Packs/Day Years Used Date Smoking Tobacco: Every Day Cigarettes 2 50 Smokeless Tobacco: Never Comments:1 ppd for the past year Sex and Gender Information Value Date Recorded Sex Assigned at Not on file Gender Identity Not on file Sexual Orientation Not on file documented as of this encounter Progress Notes * Anali Benítez - 02/13/2021 2:30 PM EST Met with Mr. Marquez to discuss his interest in quitting tobacco to follow up on our last visit on January 17. Mr. Marquez stated he has not used nicotine patches or lozenges. He wanted to try using CBD gummies [place] was told by a friend that they worked. He is still smoking about 1/2 ppd. His CO level was a 12 compared to a 13 ppm last visit, a statistically insignificant change. I asked Mr. Marquez when he thought he might try the nicotine patches and lozenges. He stated he thought he could try them when he got home. Mr. Marquez is open to a follow up in two days to monitor his progress on nicotine patches. documented in this encounter Plan of Treatment Scheduled Procedures Name Priority Associated Diagnoses Date/Ti me ELECTROPHYSIOLOGY PROCEDURE Persistent atrial fibrillation CARDIOVERSION-ELECTIVE (WRVU 2) persistent atrial fibrillation TRANSESOPHAGEAL ECHOCARDIOGR AM (WRVU 2.3) persistent atrial fibrillation documented as of this encounter Visit Diagnoses Diagnosis Cigarette nicotine dependence without complication Tobacco use disorder documented in this encounter Care Teams Cold Rolling Machine Setter Relationship Specialty Start Date End Date Tami Olivia [address] [place] [address] PCP - General Family Medicine 12/30/20 documented as of this encounter
--- OUTSIDE RECORDS SUMMARY | 2023-12-11 17:36 | XMS_ITS | Encounter Summary ---
Author Organization [facility] Address [facility] [place] [address] Care Team Providers Care Sound Art Instructor Name Role Phone Tami Olivia Primary Care Provider [phone] Encounter Details Date Type Department Care Team (Latest Contact Info) Description 02/13/2021 10:02 AM EST Hospital Encounter Non-[place] [address] [facility] [address] [place] [address] Discharge Disposition: Home Social History Tobacco Use [...] Sig Dispensed Refills Start Date End Date bupropion HCl (WELLBUTRIN ORAL) Take 150 mg [...] times daily for 10 days. 20 capsule 04/01/2021 04/11/2021 acetaminophen (Tylenol) 500 mg Tablet Take 2 tablets by mouth every 6 hours. 30 tablet 1 04/01/2021 10/30/2021 AMIOdarone (PACERONE) 400 mg Tablet Take 1 tablet by mouth every 8 hours. 3 tablet 04/01/2021 04/17/2021 senna (Senokot) 8.6 mg Tablet Take 1 tablet by mouth every evening. 10 tablet 04/01/2021 04/17/2021 oxyCODONE (Roxicodone) 5 mg Tablet Take 1 tablet by mouth every 4 hours as needed for Pain (For pain >4/10 not controlled by tylenol/toradol). 10 tablet 04/01/2021 04/17/2021 lisinopriL (Zestril) 10 mg Tablet Take 10 mg by mouth daily. 02/21/2022 nicotine (Nicoderm CQ) 21 mg/24 hr Patch 24 hr Change 1 patch on the skin every 24 hours. 10/30/2021 lisinopriL (Zestril) 5 mg Tablet Take 10 mg by mouth daily. One tab daily 03/28/2021 aspirin EC 81 mg Tablet, Delayed Release (E.C.) Take 81 mg by mouth daily. 10/30/2021 omeprazole (PriLOSEC) 20 mg Capsule, Delayed Release(E.C.) [...] Procedure Name Priority Date/Time Associated Diagnosis Comments NUCLEAR EXERCISE STRESS CARDIOLOGY Routine 02/13/2021 11:50 AM EST Mass of upper lobe of left lung Pre-operative cardiovascular examination, high risk surgery documented in this encounter Results * Nuclear Exercise Stress Cardiology (02/13/2021 11:50 AM EST) Anatomical Region Laterality Modality Other Gilmer Gutiérrez MD CARDIAC SERVICES ORDERABLES documented in this encounter Visit Diagnoses Not on filedocumented in this encounter Care Teams Sound Art Instructor Relationship Specialty Start Date End Date Tami Olivia [address] [place] [address] PCP - General Family Medicine 12/30/20 documented as of this encounter
--- OUTSIDE RECORDS SUMMARY | 2023-12-11 17:36 | XMS_ITS | Encounter Summary ---
Author Organization [facility] Address [facility] [place] [address] Care Team Providers Care Certified Hyperbaric Technician Name Role Phone Tami Olivia Primary Care Provider [phone] Reason for Visit * Consultation (Urgent) - Closed Specialty Diagnoses / Procedures Referred By Bert gautam Referred To Contact Otolaryngology Diagnoses Pharyngeal lesion PET avid left lateral pharyngeal wall uptake, please eval Patient is scheduled for Left Upper Lobe lung Lobectomy on 03/29/2021, Gilmer Gutiérrez MD [facility] [place] [address] [facility] [address] [place] [phone] Referral ID Status Reason Start Date Expiration Date V isits Requested Visits Authorized [id number] Closed Consult, Test & Treat 02/13/2021 02/13/2022 1 1 Encounter Details Date Type Department Care Team (Late st Contact Info) Description 02/17/2021 2:00 PM EST Office [place] [address] Gunnar Cottrell III, MD [facility] [place] [address] Pharyngeal candidiasis; Mucositis Social History Tobacco Use Types Packs/Day Years [...] Sign Reading Time Taken Comments Blood Pressure - - Pulse - - Temperature - - Respiratory Rate - - Oxygen Saturation - - Inhaled Oxygen Concentration - - Weight 87.1 kg (192 lb) 02/17/2021 1:45 PM EST Height 170.2 cm (5' 7) 02/17/2021 1:45 PM EST Body Mass Index 30.07 02/17/2021 1:45 PM EST documented in this encounter Progress Notes * Gunnar Cottrell III, MD - 02/17/2021 2:00 PM EST Otolaryngology Outpatient Consultation Note Date of Visit: 02/17/2021 Location of Visit: Otolaryngology Clinic, [facility] Patient: Rajan Marquez ([id number]; 1950) Primary Care Provider: Tami Olivia Referring Provider: Gilmer Gutiérrez Reason for Visit: Rajan is a 70 y.o. male seen at the request of Gilmer Gutiérrez in consultation for a pharyngeal lesion noted on PET. History of Present Illness: Rajan reports that he was unaware of any problems until he was asked to come here. He denies throt pain, dysphagia, dysphonia, and hemoptysis. Past Medical History: Past Medical History: Diagnosis Date ??? BPH (benign prostatic hyperplasia) ??? COPD (chronic obstructive pulmonary disease) ??? Coronary artery disease ??? GERD (gastroesophageal reflux disease) ??? Hypertension ??? Synovitis Past Surgical History: Past Surgical History: Procedure Laterality Date ??? APPENDECTOMY Medications: Current Outpatient Medications on File Prior to Visit Medication Sig Dispense Refill ??? UNABLE TO FIND Cbd gummies to help with smoking cessation. ??? lisinopriL (Zestril) 5 mg Tablet Take 10 mg by mouth daily. One tab daily ??? aspirin EC 81 mg Tablet, Delayed Release (E.C.) Take 81 mg by mouth daily. ??? bupropion HCl (WELLBUTRIN ORAL) Take by mouth. ??? tamsulosin (Flomax) 0.4 mg Capsule every 24 hours. ??? omeprazole (PriLOSEC) 20 mg Capsule, Delayed Release(E.C.) Daily. ??? hydrOXYchloroQUINE (Plaquenil) 200 mg Tablet Daily. ??? fluticasone furoate-vilanteroL (Breo Ellipta) 200-25 mcg/dose Disk with Device Daily. ??? albuterol sulfate (Proair Digihaler) 90 mcg/actuation aero powdr breath act w/sensor Every 4 hours. ??? cholecalciferol, Vitamin D3, (Vitamin D3) 1,000 unit Tablet Take 1 tablet by mouth. No current facility-administered medications on file prior to visit. Allergies: Patient has no known allergies. Social History: [place] [id number], Tobacco:Yes Alcohol:Yes Other: Immunizations UTD. Family History: Family History Problem Relation Age of Onset ??? Myocardial Infarction Father Review of Systems: Pertinent positive findings discussed above. No other findings on review of constitutional, visual, cardiovascular, respiratory, gastrointestinal, genitourinary, musculoskeletal, dermatologic, neurological, psychiatric, endocrine, hematologic or immunologic systems. Physical Examination: Vitals: Height 170.2 cm (5' 7), weight 87.1 kg (192 lb). General: No acute distress. Face: Full and symmetric facial movement. No dysmorphic facial features. Eyes: Periocular structures and conjunctiva healthy without lesions. Pupils are equal, round, and reactive to light. Extraocular movement is full and intact. No dysconjugate gaze. No evidence of nystagmus. Ears: Auricles symmetric without lesions. External auditory canals clear. Right tympanic membrane normal, right middle ear normal. Left tympanic membrane normal, left middle ear normal. Nose: Patent anteriorly with adequate airflow, healthy pink mucosa. Septum is midline without significant deviation. Inferior turbinates normal. Mouth: Lips and gingiva pink, moist, without lesions. Dentition healthy. Tongue and floor of mouth soft without lesions or masses. Hard palate without lesions. Pharynx: Soft palate without lesions. Uvula is intact. Oropharynx symmetric.Tonsils soft to palpation. Mild thrush in patches around pharynx. Larynx: Vocal mobility and morphology normal. Neck: Soft, supple, without significant lymphadenopathy. Thyroid gland without masses or asymmetry.Trachea midline without deviation. Lymphatic: Negative for additional peripheral lymphadenopathy or lymphedema. Neurologic: Cranial nerves II-XII intact and symmetric. Procedure - Flexible Fiberoptic Laryngoscopy: Topical anesthetic applied to the nasal cavity. Patient tolerated the procedure well without complication. Findings: Nasal Cavity: Normal Nasopharynx: Normal Oropharynx: Generalized mucositis with several areas of mild thrush. Larynx: Normal vocal mobility and morphology Hypopharynx: Normal Imaging: PET/CT: ?? FINDINGS: ?? HEAD/NECK: Asymmetrically increased FDG uptake in the left lateral pharyngeal wall with no definite CT abnormality. No adenopathy. ?? CHEST: FDG avid spiculated 2.5 cm left upper lobe pulmonary nodule (axial image 61) with small amount of surrounding groundglass opacities, unchanged in size compared to chest CT of 12/23/2020 but increased from subcentimeter size on chest CT of 09/18/2019. ?? CT visualized 5 mm left lower lobe pulmonary nodule (axial image 95), unchanged in size compared to chest CT on 09/18/2019. Sub-5 mm pulmonary nodules in the anterior left upper lobe (axial image 72) and in the anterior right middle lobe (axial image 108), unchanged compared to CT of 09/18/2019 ?? No adenopathy. Coronary and aortic calcifications present. ?? ABDOMEN/PELVIS: Small FDG avid lesion in the posterior left lobe of prostate (axial image 247). No adenopathy. Bilateral nodular enlargement of the adrenals with no abnormal activity. ?? SKELETON/EXTREMITIES: Normal activity in all regions of the axial and visualized appendicular skeleton. ?? IMPRESSION 1. FDG avid spiculated 2.5 cm left upper lobe pulmonary nodule increased from subcentimeter size on CT of 09/18/2019 and highly suspicious for primary lung malignancy. 2. No regional nakul or distant sites of metastasis. 3. CT visualized sub-7 mm pulmonary nodules in the left lower, anterior left upper, and anterior right middle lobes, unchanged in size compared to chest CT of 09/18/2019, favored to represent benign nodules. Attention on follow-up recommended. 4. Small FDG avid lesion in the posterior left lobe of prostate, consistent with focal inflammation versus prostatic malignancy. Please correlate with clinical exam and PSA. 5. Asymmetrically increased FDG uptake in the left lateral pharyngeal wall, with no definite CT abnormality. This may represent asymmetric lymphoid hyperplasia or inflammation, however, a neoplastic process is not excluded. Recommend ENT consultation Impression: No evidence of neoplasia. Mild thrush from incomplete rinsing of inhaler might be the source of the PET findings. Recommendations: Oral rinsing/dargling after inhaler use. documented in this encounter Plan of Treatment Scheduled Procedures Name Priority Associated Diagnoses Date/Ti me ELECTROPHYSIOLOGY PROCEDURE Persistent atrial fibrillation CARDIOVERSION-ELECTIVE (WRVU 2) persistent atrial fibrillation TRANSESOPHAGEAL ECHOCARDIOGR AM (WRVU 2.3) persistent atrial fibrillation Scheduled Referrals Name Type Priority Associated Diagnoses Orde r Schedule Referral to ENT Outpatient Referral Routine Pharyngeal lesion Ordered: 02/13/2021 documented as of this encounter Visit Diagnoses Diagnosis Pharyngeal candidiasis Other candidiasis of other specified sites Mucositis Stomatitis and mucositis, unspecified documented in this encounter Care Teams Certified Hyperbaric Technician Relationship Specialty Start Date End Date Tami Olivia [address] [place] [address] PCP - General Family Medicine 12/30/20 documented as of this encounter
--- OUTSIDE RECORDS SUMMARY | 2023-12-11 17:36 | XMS_ITS | Encounter Summary ---
Author Organization [facility] Address [facility] [place] [address] Care Team Providers Care Rotoprinter Name Role Phone SudhakarJacksonTami Primary Care Provider [phone] Reason for Visit * Reason Onset Date Comments Other 04/11/2021 Encounter Details Date Type Department Care Team (Late st Contact Info) Description 04/11/2021 Telephone Thoracic Surgery at [facility] [place] [phone] Megan Reza RN Other Social History Tobacco [...] Telephone Encounter - Megan Reza RN - 04/11/2021 3:48 PM EST TC to Mr. Marquez Hx: s/p Left VATS LULobectomy on 03/29/2021, discharged home on 04/01/2021. Mr. Marquez is doing ok, my voice is the only thing that is lingering. He denies any pain, SOB, difficulty breathing or issues with his incisions. He continues to use his IS and is pulling 2200. He knows to call with any other questions or concerns and will be seen on Saturday04/17/21. documented in this encounter Plan of Treatment Scheduled Procedures Name Priority Associated Diagnoses Date/Ti me ELECTROPHYSIOLOGY PROCEDURE Persistent atrial fibrillation CARDIOVERSION-ELECTIVE (WRVU 2) persistent atrial fibrillation TRANSESOPHAGEAL ECHOCARDIOGR AM (WRVU 2.3) persistent atrial fibrillation documented as of this encounter Visit Diagnoses Not on filedocumented in this encounter Care Teams Rotoprinter Relationship Specialty Start Date End Date Tami Olivia [address] [place] [address] PCP - General Family Medicine 12/30/20 documented as of this encounter
--- OUTSIDE RECORDS SUMMARY | 2023-12-11 17:36 | XMS_ITS | Encounter Summary ---
Author Organization [facility] Address [facility] [address] Care Team Providers Care Faculty Member Name Role Phone Tami Olivia Primary Care Provider [phone] Reason for Visit * Auth/Cert Specialty Diagnoses / Procedures Referred By Bert gautam Referred To Contact Diagnoses Mass of upper lobe of left lung left upper lobe lung mass Procedures PRO THORACOSCOPY SURG LOBECTOMY PRO BRONCHOSCOPY, DIAGNOSTIC @THORACOSCOPY,SURGICAL,W\LOBECTOMY, TOTAL OR SEGMENTAL (WRVU 24.64) BRONCHOSCOPY, DIAGNOSTIC (WRVU 2.78) Referral ID Status Reason Start Date Expiration Date Visits Re quested Visits Authorized [id number] 1 1 Encounter Details Date Type Department Care Team (Latest Contact Info) Description 03/29/2021 10:54 AM EST - 04/01/2021 3:25 PM EST Hospital Encounter [place] [address] Gilmer Foster MD [facility] [place] [address] Mass of upper lobe of left lung; S/P lobectomy of lung Discharge Disposition: Home Social [...] Sign Reading Time Taken Comments Blood Pressure 120/74 04/01/2021 2:00 PM EST Pulse 66 04/01/2021 2:00 PM EST Temperature 36.6 ??C (97.9 ??F) 04/01/2021 2:00 PM ES T Respiratory Rate 14 04/01/2021 2:00 PM EST Oxygen Saturation 97% 04/01/2021 2:00 PM EST Inhaled Oxygen Concentration - - Weight 100.3 kg (221 lb 1.6 oz) 03/29/2021 8:00 PM EST Height 172.7 cm (5' 8) 03/29/2021 8:00 PM EST Body Mass Index 33.62 03/29/2021 8:00 PM EST documented in this encounter Discharge Summaries * Camilo Stevenson PA - 04/01/2021 1:11 PM EST Images from the original note were not included. Department of Thoracic Surgery - Discharge Summary Patient Name: Rajan Marquez Patient Age: 70 y.o. Birthdate: 1950 Admit date: 03/29/2021 Discharge date: 04/01/21 Attending Physician: Gilmre Foster MD Discharge Diagnoses (Hospital Problems) and Secondary Diagnoses (Chronic Problems): Active Hospital Problems Diagnosis ??? Mass of upper lobe of left lung Resolved Hospital Problems No resolved problems to display. There are no active non-hospital problems to display for this patient. Operations/Major Procedures: Operations: Case Date: 03/29/2021 Surgeon: Surgeon(s) and Role: * Gilmer Foster MD - Primary * Renu Tan PA - Physician Chief Investigator * Say Mo MD - Resident Procedure: Procedure(s): @THORACOSCOPY,SURGICAL,W\LOBECTOMY,TOTAL OR SEGMENTAL (WRVU 24.64) BRONCHOSCOPY, DIAGNOSTIC (WRVU 2.78) @THORACOSCOPY, SURG; W/MEDIASTINAL& REGIONAL LYMPHADENECTOMY (WRVU 4.12) NERVE BLOCK, INTERCOSTAL NERVE (WRVU 1.18) @THORACOSCOPY, SURG; W/DX WEDGE RESC W/ANATOMIC LUNG RESC (WRVU 3) Other Major Procedures: None History of Presentation: Rajan Marquez is a 70 y.o. male with an enlarging, 2.8cm, spiculated, FDG avid, ARACELI lung nodule concerning for primary lung cancer - clinically cT1cN0, stage IA3. Hospital Course: Rajan Marquez was admitted to [facility] on 03/29/2021 via the Same Day Program. He was brought to the operating room on 03/29/[address] Gilmer Foster performed surgery as described above. He tolerated the procedure well and was brought to the Post Anesthesia Care Unit for recovery. After a brief period of time he was transferred to the floor for continued rehabilitation. The left chest tube was discontinued on post operative day # 3. A chest Xray after this demonstrated no apparent PTX, stable CXR. By postoperative day # 3 he had met all criteria for discharge to home. Pain was controlled on oral medications. He had walked 5 minutes. He was tolerating a regular diet and had had a bowel movement. Vital signs: Vital Signs Temp: 36.8 ??C (98.2 ??F) Temp src: Temporal Heart Rate from SpO2: 68 bpm Heart Rate: 66 Heart Rate Source: Monitor Resp: 12 BP: 122/72 MAP (NBP): 86 mmHg BP Method: Automatic BP Location: Left arm Patient Position: Lying SpO2: 96 % O2 Flow Rate (L/min): 2 L/min O2 Device: None (Room air) Admission Wt: 90.27 kg Last Wt: Wt Readings from Last 3 Encounters: 03/29/21 100.3 kg (221 lb 1.6 oz) 02/17/21 87.1 kg (192 lb) 02/13/21 87.1 kg (192 lb) Pertinent physical exam findings prior to discharge: Gen: NAD, pleasant, sitting in bed HEENT: normocephalic, atraumatic, EOMI, sclerae anicteric Neck: supple, trachea midline Card: RRR, no M/R/G appreciated Pulm: CTAB, no wheeze/ronchi/rales appreciated, non-labored breathing on RA Abd: soft, NT, BS+ Ext: warm, dry, no edema Neuro: A&Ox3, CN II-XII grossly intact, nonfocal, conversant Important Lab Data: Lab Results Component Value Date WBC 9.8 (H) 04/01/2021 HGB 12.9 (L) 04/01/2021 HCT 38.6 (L) 04/01/2021 MCV 91.7 04/01/2021 Lab Results Component Value Date NA 137 04/01/2021 K 4.3 04/01/2021 CL 104 04/01/2021 CO2 21 (L) 04/01/2021 Lab Results Component Value Date CREATININE 1.27 04/01/2021 Lab Results Component Value Date BUN 22 (H) 04/01/2021 No results found for: PREALBUMIN No results for input(s): PT, PTT, INR in the last 168 hours. Studies: CXR 04/01/21 No apparent PTX. Stable CXR CXR 03/30/21: Interval development of small left apical pneumothorax. Unexpected finding. CXR 03/29/21: Post LEFT upper lobectomy. No pneumothorax. Bilateral, RIGHT greater than LEFT, increased interstitial/vascular markings; cannot exclude pulmonary vascular hypertension. LEFT pleural chest tube in place. Pending Studies and Lab Data: The patient will need the following test completed on: 02/13/2021 1. XR Chest PA & Lateral (Generic) Diagnosis: Authorizing Provider: Gilmer Foster MD Discharge Conditions/Prognosis: Stable Discharge to: Home Discharge Medications: Your Medications New Medications Dose Details acetaminophen 500 mg Tab Commonly known as: Tylenol Take 2 tablets by mouth every 6 hours. 1,000 mg Quantity: 30 tablet Refills: 1 AMIOdarone 400 mg Tab Commonly known as: PACERONE Take 1 tablet by mouth every 8 hours. 400 mg Quantity: 3 tablet Refills: 0 docusate sodium 100 mg Cap Commonly known as: Colace Take 1 capsule by mouth 3 times daily for 10 days. 100 mg Quantity: 20 capsule Refills: 0 oxyCODONE 5 mg Tab Commonly known as: Roxicodone Take 1 tablet by mouth every 4 hours as needed for Pain (For pain >4/10 not controlled by tylenol/toradol). 5 mg Quantity: 10 tablet Refills: 0 senna 8.6 mg Tab Commonly known as: Senokot Take 1 tablet by mouth every evening. 1 tablet Quantity: 10 tablet Refills: 0 Continued medications, unchanged Dose Details aspirin EC 81 mg Tbec Take 81 mg by mouth daily. 81 mg Refills: 0 cholecalciferol (Vitamin D3) 1,000 unit Tab Commonly known as: Vitamin [...] by mouth daily. 10 mg Refills: 0 nicotine 21 mg/24 hr Pt24 Commonly known as: Nicoderm CQ Change 1 patch on the skin every 24 hours. 1 patch Refills: 0 omeprazole 20 mg Cpdr Commonly known as: PriLOSEC Take 20 mg by mouth daily. 20 mg Refills: 0 Proair Digihaler 90 mcg/actuation Aebs 4 times daily as needed. Generic drug: albuterol sulfate Refills: 0 tamsulosin 0.4 mg Cap Commonly known as: Flomax Take 0.4 mg by mouth daily. 0.4 mg Refills: 0 UNABLE TO FIND Cbd gummies to help with smoking cessation. Refills: 0 WELLBUTRIN ORAL Take 150 mg by mouth daily. 150 mg Refills: 0 Updated Allergies/ADRs: No Known Allergies Instructions Given to Patient at Discharge: Patient Instructions Call if you have a fever of greater than 101 degrees, shaking chills, develop redness or drainage from your incision site(s), or if you have questions. During normal business hours, Saturday- Saturday 8:00 a.m.-5:00 p.m., please call to speak to a nurse in the Thoracic Clinic at [phone]. After hours or on weekends or holidays please call: [phone] and ask to speak to the Thoracic [...] weeks (nothing heavier than a gallon of milk). Don???t exhaust yourself. Rest between activities as you recover from your procedure. Diet: You should follow a regular, healthy diet. Driving: No driving for 1 week or while taking narcotic pain medication. Shower/Bath: You may shower daily starting 2 [...] the Thoracic Clinic or the Thoracic Surgeon online communications manager after hours. Please take over the counter Tylenol (1000 mg) and Ibuprofen (600 mg) together every 6 hours, as instructed, for baseline pain coverage. Do not exceed recommended dosages. Take the Oxycodone, as prescribed, for pain not controlled by the Tylenol and Ibuprofen. We are unable to refill narcotics after [...] properly when you no longerneed these pills. No flowsheet data found. Rajan Marquez is being prescribed a prescription [...] appointments: You will see Dr Foster in two weeks with a chest Xray within one hour of the appointment. A letter will be mailed to you confirming your appointment information. No future appointments. General Instructions None Opioid PDMP 02/13/2021 [place] PDMP Query Date [...] Expires XR Chest PA & Lateral (Generic) [[id number] Custom] 04/15/2021 10/15/2021 Process Instructions: Scheduling Instructions: Questions: Where will study be performed?: [facility] Radiology Portable exam?: Reason for exam and clinical history: s/p LULobectomy Clinical information / bryan questions for radiologist: Stat read required?: Date of injury if applicable: Requested Time: Provider Contact Information: Primary Care Provider: Tami Olivia [phone] Discharge References/Attachments: Discharge References/Attachments None For questions regarding this document or issues relating to this hospitalization on the Thoracic Surgery Service, please contact Dr. Foster's office at . Signed: STEVE Black 04/01/2021 Thoracic Surgery [facility] CC: PCP: Tami Olivia Referring: Tami Olivia [address] [place] [address] documented in this encounter Discharge Instructions * Patient Instructions* Camilo Stevenson PA - 03/31/2021 7:33 AM EST Images from the original note were not included. Call if you have a fever of greater than 101 degrees, shaking chills, develop redness or drainage from your incision site(s), or if you have questions. During normal business hours, Saturday- Saturday 8:00 a.m.-5:00 p.m., please call to speak to a nurse in the Thoracic Clinic at [phone]. After hours or on weekends or holidays please call: [phone] and ask to speak to the Thoracic [...] weeks (nothing heavier than a gallon of milk). Don???t exhaust yourself. Rest between activities as you recover from your procedure. Diet: You should follow a regular, healthy diet. Driving: No driving for 1 week or while taking narcotic pain medication. Shower/Bath: You may shower daily starting 2 [...] the Thoracic Clinic or the Thoracic Surgeon online communications manager after hours. Please take over the counter Tylenol (1000 mg) and Ibuprofen (600 mg) together every 6 hours, as instructed, for baseline pain coverage. Do not exceed recommended dosages. Take the Oxycodone, as prescribed, for pain not controlled by the Tylenol and Ibuprofen. We are unable to refill narcotics after [...] properly when you no longerneed these pills. No flowsheet data found. Rajan Marquez is being prescribed a prescription [...] appointments: You will see Dr Foster in two weeks with a chest Xray within one hour of the appointment. A letter will be mailed to you confirming your appointment information. No future appointments. documented in this encounter Medications at Time of Discharge Medication Sig Dispensed Refills Start Date End Date UNABLE TO FIND Cbd gummies to help [...] on the skin every 24 hours. 10/30/2021 aspirin EC 81 mg Tablet, Delayed Release (E.C.) Take 81 mg by mouth daily. 10/30/2021 omeprazole (PriLOSEC) 20 mg Capsule, Delayed Release(E.C.) Take 20 mg by mouth daily. 03/12/2018 05/17/2022 fluticasone furoate-vilanteroL (Breo Ellipta) 200-25 mcg/dose Disk with Device Inhale 1 puff into the lungs Daily. 02/17/2022 documented as of this encounter Progress Notes * Malia Paredes RN - 04/01/2021 9:07 AM EST [facility] Short Stay Unit Discharge Note All relevant discharge milestones have been met by the patent. After Visit Summary and discharge teaching reviewed with the patient. IV access has been discontinued. All personal belongings have been returned to the patient/family upon their departure from the unit. Patient has been discharged to home The patient has been discharged without VNA services.0900: Ct clamped per MD earlier. MD team now in with Pt. No c/o offered. * Leonora Kingsley RN - 03/31/2021 8:43 PM EST 1900: Assumed care of pt. Monitors on, alarms active and audible. NSR with pac's on telemetry. CT insertion site CDI, draining serosanguinous drainage. Pt. Denies pain at this time. 2015: PVI leaking, pt. Denies pain, Vascular Access paged to assess. 0550: Pt. Rested throughout the night. Pain controlled with PRN's. OOB to bathroom with SBA. * Olamide Bucio RN - 03/31/2021 10:22 AM EST Report received from CHRISTINA Ashley. Patient resting in bed. CT to water seal, site CDI. Up to the bathroom with SBA. 0900: Patient to x ray 1130: Resident at bedside, CT clamped, will have x ray this afternoon 1730: Residents at bedside. Patient placed back on suction 1910: Hand off to CHRISTINA Lea * Linda Mustafa PA - 03/31/2021 8:39 AM EST [facility] Department of Thoracic Surgery Inpatient Progress Note Patient Name: Rajan Marquez Patient : 1950 Patient Patient Location: [facility] Attending Surgeon: GILMER FOSTER ID: Rajan Marquez is a 70 y.o. male who is 2 Days Post-Op s/p LULobectomy for NSCLC on 03/29/2021. Subjective: - CT to WS with small apical ptx noted - ODELL o/n, no complaints this AM other than mild discomfort, denies F/C/N/V/CP/SOB, stable on RA Vitals: Temp: [36.8 ??C (98.2 ??F)-37 ??C (98.6 ??F)] Heart Rate: [61-75] Resp: [18-20] BP: (115-143)/(55-67) SpO2: [94 %-97 %] Heart Rate from SpO2: [60 bpm-75 bpm] Wt & BMI By Encounter Date Flowsheet Row Admission (Current) from 03/29/2021 in Short Stay Unit at [facility] Office Visit from 02/17/2021 in Otolaryngology at [facility] Weight 100.3 kilograms, or 221 pounds 1.6 ounces 1 03/29/20211999 87.1 kilograms, or 192 pounds 1 02/17/2021 1345 BMI 33.61 1 03/29/20211999 30.07 1 02/17/2021 1345 Physical Exam: Gen: NAD, pleasant, sitting upright comfortably in bed, wet cough HEENT: normocephalic, atraumatic, EOMI, sclerae anicteric Neck: supple wide neck, trachea midline Card: Regular rate, no M/R/G appreciated, normotensive Pulm: CTAB, no wheeze/ronchi/rales, very small amount of subcutaneous emphysema over upper chest, non-labored breathing on RA, Left CT to WS with SS output and no air leak noted, incisions c/d/i covered with gauze and tegaderm Abd: soft, NT, ND Ext: warm, dry, no edema Neuro: A&Ox3, nonfocal, conversant I/O: I/O last 3 completed shifts: In: 3425 [P.O.:2770; I.V.:505; Other:150] Out: 2580 [Urine:2310; Other:270] Labs: Recent Results (from the past 72 hour(s)) POCT Glucose Result Value Ref Range POC Glucose 89 65 - 199 mg/dL Surgical Pathology Report Result Value Ref Range Surgical Pathology Report [id number] Location: OR; OR11; A The signing pathologist has (i) examined the relevant preparation(s) for the specimen(s) and (ii) rendered or confirmed the diagnosis(es). . Frozen Section FROZEN SECTION DIAGNOSIS AFS - Left upper lobe wedge, excision (1) for frozen section Positive for non-small cell carcinoma. 03/29/21 13:48 Electronically signed by: Malia Lacy MD Verified: 03/29/2021 13:49 Pathologist Performed at: -[facility] Dept. of Pathology, [place], [place] This intraoperative consultation should be interpreted as a preliminary diagnosis pending review of the entire specimen and special studies, if any. A final Surgical Pathology report will follow this preliminary Frozen Section report(s). Basic Metabolic Panel (non-fasting) Result Value Ref Range Glucose Lvl 138 65 - 199 mg/dL BUN 20 10 - 20 mg/dL Creatinine 1.15 0.80 - 1.50 mg/dL Sodium 136 135 - 145 mmol/L Potassium 3.9 3.5 - 5.0 mmol/L Chloride 103 98 - 107 mmol/L CO2 22 22 - 31 mmol/L Anion Gap 11 5 - 15 mmol/L Calcium 8.9 8.5 - 10.5 mg/dL Estimated GFR 64 >=60 mL/min/1.73 m?? Magnesium Result Value Ref Range Magnesium 0.67 (L) 0.69 - 1.07 mmol/L Phosphorus Result Value Ref Range Phosphorus 3.1 2.5 - 4.5 mg/dL Hemogram Result Value Ref Range WBC 15.8 (H) 4.0 - 9.5 x10(3)/mcL RBC 4.20 (L) 4.58 - 5.54 x10(6)/mcL Hemoglobin 13.1 (L) 13.7 - 16.5 g/dL Hematocrit 37.5 (L) 40.5 - 48.5 % MCV 89.3 82.9 - 93.1 fL MCH 31.2 27.5 - 32.1 pg MCHC 34.9 32.0 - 35.7 g/dL Platelets 183 145 - 357 x10(3)/mcL RDWSD 41.9 36.0 - 45.0 fL RDWCV 12.9 11.4 - 13.8 % MPV 10.3 7.6 - 12.9 fL nRBC % Auto 0.0 % nRBC Abs Auto 0.000 0.000 - 0.000 x10(3)/mcL Differential, Automated Result Value Ref Range Neutrophils % 86.1 % Neutr Abs (ANC) 13.63 (H) 1.70 - 6.10 x10(3)/mcL Lymphocytes % 7.9 % Lymphocytes Abs 1.2 0.9 - 3.2 x10(3)/mcL Monocytes % 5.6 % Monocyte Abs 0.9 0.3 - 0.9 x10(3)/mcL Eosinophils % 0.0 % Eosinophils Abs 0.0 0.0 - 0.4 x10(3)/mcL Basophils % 0.1 % Basophils Abs 0.0 0.0 - 0.1 x10(3)/mcL Immature Gran % 0.30 % Kecia Gran Abs 0.05 (H) 0.00 - 0.04 x10(3)/mcL Basic Metabolic Panel (non-fasting) Result Value Ref Range Glucose Lvl 114 65 - 199 mg/dL BUN 17 10 - 20 mg/dL Creatinine 1.22 0.80 - 1.50 mg/dL Sodium 138 135 - 145 mmol/L Potassium 3.8 3.5 - 5.0 mmol/L Chloride 105 98 - 107 mmol/L CO2 22 22 - 31 mmol/L Anion Gap 11 5 - 15 mmol/L Calcium 8.5 8.5 - 10.5 mg/dL Estimated GFR 59 (L) >=60 mL/min/1.73 m?? Magnesium Result Value Ref Range Magnesium 0.86 0.69 - 1.07 mmol/L Phosphorus Result Value Ref Range Phosphorus 3.2 2.5 - 4.5 mg/dL Hemogram Result Value Ref Range WBC 10.6 (H) 4.0 - 9.5 x10(3)/mcL RBC 3.99 (L) 4.58 - 5.54 x10(6)/mcL Hemoglobin 12.3 (L) 13.7 - 16.5 g/dL Hematocrit 36.1 (L) 40.5 - 48.5 % MCV 90.5 82.9 - 93.1 fL MCH 30.8 27.5 - 32.1 pg MCHC 34.1 32.0 - 35.7 g/dL Platelets 171 145 - 357 x10(3)/mcL RDWSD 43.4 36.0 - 45.0 fL RDWCV 13.2 11.4 - 13.8 % MPV 10.1 7.6 - 12.9 fL nRBC % Auto 0.0 % nRBC Abs Auto 0.000 0.000 - 0.000 x10(3)/mcL Differential, Automated Result Value Ref Range Neutrophils % 71.6 % Neutr Abs (ANC) 7.59 (H) 1.70 - 6.10 x10(3)/mcL Lymphocytes % 18.1 % Lymphocytes Abs 1.9 0.9 - 3.2 x10(3)/mcL Monocytes % 8.7 % Monocyte Abs 0.9 0.3 - 0.9 x10(3)/mcL Eosinophils % 0.6 % Eosinophils Abs 0.1 0.0 - 0.4 x10(3)/mcL Basophils % 0.5 % Basophils Abs 0.0 0.0 - 0.1 x10(3)/mcL Immature Gran % 0.50 % Kecia Gran Abs 0.05 (H) 0.00 - 0.04 x10(3)/mcL Diagnostics: CXR 03/29/2021 IMPRESSION Post LEFT upper lobectomy. No pneumothorax. Bilateral, RIGHT greater than LEFT, increased interstitial/vascular markings; cannot exclude pulmonary vascular hypertension. LEFT pleural chest tube in place. Assessment: Rajan Marquez is a 70 y.o. male who is 2 Days Post-Op s/p LULobectomy on 03/29/2021. He is currentlyin stable condition and recovering well postoperatively. Air leak appears to resolved but given wetcough will obtain CXR to ensure no obstructive mucus plug. Plan: Neuro: tylenol, toradol available for pain. Oxycodone 5 mg Q4H PRN, buproprion 150 mg daily Card: HDS, monitor vitals, tele, amio protocol, ASA 81 mg daily, lisinopril 5 mg daily Pulm: continue Left chest tube to water seal and obtain CXR-> possibly removed CT later today, IS/cough/deep breathe/OOB/ambulate. Albuterol, symbicort FENGI: Regular diet, HLIVF, protonix 40 mg daily, RBOs - senna, colace, zofran PRN Renal/: monitor UOP, flomax Heme: SQH TID ID: n/a Endo: n/a PPx: scds; SQH, Ambulate 4x a day. OOB. Dispo: full code, floor status- possible dc today if CT can be removed STEVE Sethi 03/31/2021 Thoracic Surgery Service Pager [phone] * Debbie Pride RN - 03/30/2021 11:05 AM EST 0700: Report received from CHRISTINA Mendez. Pt resting in bed. Chest tube put to water seal. Pharmacy paged for mag infusion. 0900: Mag has not arrived, pharmacy paged. 1000: PT at bedside. Pt tolerated walking hallways. 1230: Pt to xray. 1330: Team paged with abnormal CXR results, no new orders. * Michaela Butcher PT - 03/30/2021 10:28 AM EST Physical Therapy Evaluation Patient profile: Rajan Marquez is a 70 y.o. male who is 1 Day Post-Op s/p LULobectomy for NSCLC on 03/29/2021. Patient with the following active problems: Past Medical History: Diagnosis Date ??? BPH (benign prostatic hyperplasia) ??? COPD (chronic obstructive pulmonary disease) ??? Coronary artery disease ??? GERD (gastroesophageal reflux disease) ??? Hypertension ??? Synovitis There are no active non-hospital problems to display for this patient. Past Surgical History: Procedure Laterality Date ??? APPENDECTOMY Social History: Home set-up: Pt lives alone in a single level home. Bathroom Set-up: has both a tub-shower and walk-in shower Stairs: none; ramp to enter Baseline Mobility: Pt is fully independent with mobility, ADLs, and IADLs at baseline. 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 He enjoys kayaking and four-wheeling. Equipment at home: walker, cane Fall history: denies Precautions/Special Considerations: at risk to fall, L CT to WS, tele/SpO2 monitoring Activity Orders: ambulate patient 4 times daily Diet: regular Mobility and Positioning Recommendations: ?? Pt. to utilize 1 assist for ambulation and transfers with nursing. ?? Please encourage up to chair for meal times as able. ?? Pt encouraged to ambulate frequently with staff, getting into the bathroom for toileting and walking out in the soto >/= 3 times daily as able. Subjective: ???I feel a little short of breath?? Objective: Pt seen for evaluation today. Pain: Tolerable pain at L CT site Vital Signs: SpO2 91-95% throughout on RA Mental Status: alert, oriented to person, place, and time Vision: no corrective lenses Skin: L CT site not visualized during session. Visible skin appears intact Musculoskeletal: ROM: WFL Strength: WFL Sensation: not formally assessed Bed Mobility: Supine to Sit:SBA with inc time and effort, HOB elevated and use of bed rails Sit to Supine:SBA with inc time and effort, HOB elevated and use of bed rails Transfers: Sit to Stand: CGA with inc effort, BUE pushoff Stand to Sit: SBA, dec ecc control Gait: Distance: ~150' Device used: none Level of assist: CGA Gait mechanics: Demo's dec gait speed, dec step length, wide GENOVEVA and mod trunk sway. No overt LOB. Endorses moderate PRIEST Stairs: NA Balance: Sitting Static: good Sitting Dynamic: good Standing Static: fair Standing Dynamic / Gait: fair Education: patient has been educated on Bed mobility, Transfers, Breathing exercises, Positioning, Safety , Precautions/protocol, Gait , Activity pacing/Energy conservation, Role of therapy, Balance and Discharge planning and verbalizes understanding. Patient status, treatment, and mobility recommendations discussed with nursing. Assessment: Rajan Marquez was seen today for physical therapy evaluation. Pt presents for PT eval s/p LULobectomy for NSCLC, with L CT to WS. He endorses mild pain at chest tube site, but this did not impact participation in eval as outlined above. Upon evaluation, patient presents with impaired balance, impaired activity tolerance, pain, impaired gait mechanics and impaired endurance, resulting in functional limitation. Pt most limited this day by PRIEST, with stable SpO2. He required intermittent standing rest breaks and VCs for PLB. From a functional standpoint, pt could d/c home when medically ready, however will provide additional skilled services while he remains in-house. The pt would benefit from skilled therapy services while in the hospital to maximize functional abilities. Discharge Recommendations: Based on the current findings, Anticipated Discharge Disposition (PT): home when medically ready for hospital discharge. Discharge recommendation is based on the patient's current physical impairments, prior functional status, potential to return to prior level of function, patient motivation, reported home support, potential for functional gains, current level of endurance, reported home environment and anticipated trajectory of progress and may change based on patient progress during this hospitalization. Consult Recommendations: No other consults recommended at this time. Equipment needs: Anticipated Equipment Needs at Discharge (PT): None Goals: To be achieved by 04/04/2021: 1. Pt. to demonstrate knowledge of safety limitations and precautions and will appropriately request assistance for functional activities and to mobilize. 2. Pt. to perform bed mobility independently. 3. Pt. to perform sit<>stand transfers independently. 4. Pt. to ambulate 150 feet independently. Plan: Therapy Frequency (PT): 1-2 more times for therapy including balance training, bed mobility training, gait training and patient/family education. Patient/family understand and agree with plan as stated above. 2017 PT Evaluation Code Rationale: ?? Diagnosis & Pertinent Co-Morbidities, personal factors, and present illness affecting Plan of Care: (see above); Additional personal factors or co- morbidities that impact plan: ?? Total # of Factors: 0 1-2 3+ X ?? Examination of body system impairments, functional limitations and behaviors, and/or participation restrictions. Addressing 1-2 elements Addressing 3 + elements X Addressing 4 + elements ?? Clinical presentation: See assessment above. Stable/Uncomplicated Evolving/Fluctuating Symptoms Unstable/Unpredictable X- PRIEST ?? Clinical decision making of moderate complexity based on pt's functional performance as outlinedin this evaluation. Time IN / OUT: 8872-2613 Total Minutes, Physical Therapy: 25 (mod complexity eval ) Michaela Butcher, PT Pager: [phone] Physical Therapy Inpatient Rehabilitation Department * Sandra Goncalves OT - 03/30/2021 10:05 AM EST Occupational Therapy Evaluation Patient profile: Rajan Marquez is a 70 y.o. male admitted on 03/29/2021 who is 1 Day Post-Op??s/p LULobectomy for NSCLC on 03/29/2021. Past Medical History: Diagnosis Date ??? BPH (benign prostatic hyperplasia) ??? COPD (chronic obstructive pulmonary disease) ??? Coronary artery disease ??? GERD (gastroesophageal reflux disease) ??? Hypertension ??? Synovitis Past Surgical History: Procedure Laterality Date ??? APPENDECTOMY Social History: Home Setup: pt lives alone in a single level house with a ramp to enter. Bathroom has a walk-in shower and tub shower Functional Status: independent with ADLs, IADLs, and functional mobility. 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 Pt drives and stays active with kayaking and four-wheeling Equipment at home: bahman sterling Fall history: denies Precautions/Special Considerations: fall risk, full code, left CT to water seal Subjective: I'm a little short winded Objective: Seen today for OT evaluation in conjunction with PT. ??? Vital Signs o HR: 76 bpm at rest o SpO2: 94-95% on RA at rest and with activity o Appearing SOB; educated on pursed lip breathing technique and pt demonstrated ??? Pain: c/o tolerable pain at site of L CT ??? Cognitive Status/Behavior o Behavior / Mood: alert, cooperative and pleasant o Alert and oriented to: person, place, time and situation o Follows commands: multi step and 100% of the time o Attention: WFL o Safety awareness: WFL ? ? Vision & Perception o WNL/WFL o Able to read white board 10' away and print on badge from 6 away ?? Communication o WFL ??? Musculoskeletal o ROM: BUEs and BLEs WFL o Strength: BUEs and BLEs WFL o Sensation: denies N/T o Skin: appears unremarkable ??? Activities of Daily Living: o Self-feeding: independent as indicated by good BUE ROM, strength, and coordination o Grooming: washed face independently o Dressing: declined to dress LB o Bathing: anticipate SBA o Toileting: declined; anticipate SBA ??? Functional Mobility: o Supine to sit: SBA, HOB elevated, using bed rails o Sit to stand: CGA o Ambulation: 150' with CGA and no device, assist to manage L CT o Stand to sit: CGA o Sit to supine: SBA, HOB elevated, using bed rails ??? Balance o Sitting balance: good o Standing balance: good Education: patient have been educated on Role of occupational therapy/rehabilitation, Transfers, Assistive device/technique, ADL, Breathing exercises, Precautions/Protocol, Functional Mobility, Activity pacing/Energy conservation, Balance, Recommendations and Discharge planning and verbalizes understanding. Patient status, treatment, and mobility recommendations discussed with nursing. Pt returned to bed with all needs met, call within reach, and alarm set. Assessment: Pt has been seen for occupational therapy evaluation in conjunction with PT. Rajan Marquez presents 1 Day Post-Op s/p LULobectomy for NSCLC. He appears PRIEST, although saturating in mid 90son RA. Assist with managing L CT while mobilizing. Educated on pursed lip breathing and demonstrating good carryover. He would benefit from additional education on energy conservation techniques. Plan to see 1-3 more visits while in-house, however will be ready to discharge home with home health once deemed medically ready. Pt would benefit from further inpatient OT interventions to address performance deficits and maximize participation and independence with occupations of daily living. Equipment needs at discharge: shower seat Anticipated Discharge Disposition (OT): home with home health Other Recommendations: ?? Utilize upright chair position using bed features or transfer to recliner chair as appropriate with 1x assist, ambulate as tolerated ?? Encourage participation in ADL's by providing set up A on tray table and physical assist only asneeded Other Recommendations: No other consults recommended at this time Goals: To be achieved by 04/13/2021. Pt will complete LB dressing with mod independence and AE as needed. Pt will complete all aspects of toilet routine (transfer, hygiene, clothing management) with mod independence. Pt will be educated on energy conservation techniques and demonstrate understanding in functional tasks. Plan: OT: Therapy Frequency (OT): 1-3 more times Planned OT interventions: Role of occupational therapy/rehabilitation, Transfers, Assistive device/technique, ADL, Breathing exercises, Precautions/Protocol, Functional Mobility, Activity pacing/Energy conservation, Balance, Recommendations and Discharge planning. Total Minutes, Occupational Therapy: 22 (low complexity eval, 10:05-10:27) 2017 OT Evaluation Code Rationale: ?? Diagnosis & Pertinent Co-Morbidities affecting Plan of Care: see PMHx ?? Occupational Profile & Client History: Brief Expanded Extensive x ?? Assessment of Occupational Performance: 1-3 performance deficits x 3-5 performance deficits 5 + performance deficits ?? Clinical Decision Making: Low Moderate High x Clinical decision making of low complexity using standardized patient assessment instrument and measurable assessment of functional outcome. Sandra Goncalves OTR/L Pager [phone] Occupational Therapy Rehabilitation Department * Yosef Butcher PA - 03/30/2021 9:34 AM EST [facility] Department of Thoracic Surgery Inpatient Progress Note Patient Name: Rajan Marquez Patient : 1950 Patient Patient Location: [address] Attending Surgeon: GILMER FOSTER ID: Rajan Marquez is a 70 y.o. male who is 1 Day Post-Op s/p LULobectomy for NSCLC on 03/29/2021. Subjective: - ODELL o/n, no complaints this AM other than mild discomfort, denies F/C/N/V/CP/SOB, stable on RA Vitals: Temp: [36.3 ??C (97.3 ??F)-37.4 ??C (99.3 ??F)] Heart Rate: [63-80] Resp: [16-21] BP: (110-147)/(56-90) SpO2: [93 %-99 %] Heart Rate from SpO2: [67 bpm-76 bpm] Wt & BMI By Encounter Date Admission (Current) from 03/29/2021 in Short Stay Unit at [facility] Office Visit from 02/17/2021 in Otolaryngology at [facility] [place] Weight 100.3 kg (221 lb 1.6 oz) 1 03/29/20211999 87.1 kg (192 lb) 1 02/17/2021 1345 BMI 33.61 1 03/29/20211999 30.07 1 02/17/2021 1345 Physical Exam: Gen: NAD, pleasant, sitting upright comfortably in bed HEENT: normocephalic, atraumatic, EOMI, sclerae anicteric Neck: supple, trachea midline Card: Regular rate, no M/R/G appreciated, normotensive Pulm: CTAB, no wheeze/ronchi/rales, very small amount of subcutaneous emphysema over upper chest, non-labored breathing on RA, Left CT to -20 sxn with SS output and 1 column intermittent airleak appreciated, incisions c/d/i covered with gauze and tegaderm Abd: soft, NT, ND : matt in place Ext: warm, dry, no edema Neuro: A&Ox3, nonfocal, conversant I/O: I/O last 3 completed shifts: In: 2622 [I.V.:2350; Other:170; IV Piggyback:102] Out: 1680 [Urine:1635; Other:18; Blood:27] Labs: Recent Results (from the past 72 hour(s)) POCT Glucose Result Value Ref Range POC Glucose 89 65 - 199 mg/dL Surgical Pathology Report Result Value Ref Range Surgical Pathology Report [id number] Location: OR; OR11; A The signing pathologist has (i) examined the relevant preparation(s) for the specimen(s) and (ii) rendered or confirmed the diagnosis(es). . Frozen Section FROZEN SECTION DIAGNOSIS AFS - Left upper lobe wedge, excision (1) for frozen section Positive for non-small cell carcinoma. 03/29/21 13:48 Electronically signed by: Malia Lacy MD Verified: 03/29/2021 13:49 Pathologist Performed at: -[facility] [place] Dept. of Pathology, [place], [place] This intraoperative consultation should be interpreted as a preliminary diagnosis pending review of the entire specimen and special studies, if any. A final Surgical Pathology report will follow this preliminary Frozen Section report(s). Basic Metabolic Panel (non-fasting) Result Value Ref Range Glucose Lvl 138 65 - 199 mg/dL BUN 20 10 - 20 mg/dL Creatinine 1.15 0.80 - 1.50 mg/dL Sodium 136 135 - 145 mmol/L Potassium 3.9 3.5 - 5.0 mmol/L Chloride 103 98 - 107 mmol/L CO2 22 22 - 31 mmol/L Anion Gap 11 5 - 15 mmol/L Calcium 8.9 8.5 - 10.5 mg/dL Estimated GFR 64 >=60 mL/min/1.73 m?? Magnesium Result Value Ref Range Magnesium 0.67 (L) 0.69 - 1.07 mmol/L Phosphorus Result Value Ref Range Phosphorus 3.1 2.5 - 4.5 mg/dL Hemogram Result Value Ref Range WBC 15.8 (H) 4.0 - 9.5 x10(3)/mcL RBC 4.20 (L) 4.58 - 5.54 x10(6)/mcL Hemoglobin 13.1 (L) 13.7 - 16.5 g/dL Hematocrit 37.5 (L) 40.5 - 48.5 % MCV 89.3 82.9 - 93.1 fL MCH 31.2 27.5 - 32.1 pg MCHC 34.9 32.0 - 35.7 g/dL Platelets 183 145 - 357 x10(3)/mcL RDWSD 41.9 36.0 - 45.0 fL RDWCV 12.9 11.4 - 13.8 % MPV 10.3 7.6 - 12.9 fL nRBC % Auto 0.0 % nRBC Abs Auto 0.000 0.000 - 0.000 x10(3)/mcL Differential, Automated Result Value Ref Range Neutrophils % 86.1 % Neutr Abs (ANC) 13.63 (H) 1.70 - 6.10 x10(3)/mcL Lymphocytes % 7.9 % Lymphocytes Abs 1.2 0.9 - 3.2 x10(3)/mcL Monocytes % 5.6 % Monocyte Abs 0.9 0.3 - 0.9 x10(3)/mcL Eosinophils % 0.0 % Eosinophils Abs 0.0 0.0 - 0.4 x10(3)/mcL Basophils % 0.1 % Basophils Abs 0.0 0.0 - 0.1 x10(3)/mcL Immature Gran % 0.30 % Kecia Gran Abs 0.05 (H) 0.00 - 0.04 x10(3)/mcL Diagnostics: CXR 03/29/2021 IMPRESSION Post LEFT upper lobectomy. No pneumothorax. Bilateral, RIGHT greater than LEFT, increased interstitial/vascular markings; cannot exclude pulmonary vascular hypertension. LEFT pleural chest tube in place. Assessment: Rajan Marquez is a 70 y.o. male who is 1 Day Post-Op s/p LULobectomy on 03/29/2021. He is currently in stable condition and recovering well postoperatively. Plan: Neuro: tylenol, toradol available for pain. Oxycodone 5 mg Q4H PRN, buproprion 150 mg daily Card: HDS, monitor vitals, tele, amio protocol, ASA 81 mg daily, lisinopril 5 mg daily Pulm: will transition Left chest tube to water seal and obtain CXR around noon, IS/cough/deep breathe/OOB/ambulate. Albuterol, symbicort FENGI: Regular diet, HLIVF, protonix 40 mg daily, RBOs - senna, colace, zofran PRN Renal/: d/c matt, monitor UOP, flomax Heme: SQH TID ID: n/a Endo: n/a PPx: scds; SQH, Ambulate 4x a day. OOB. Dispo: full code, floor status STEVE Lenz 03/30/2021 Thoracic Surgery Service Pager [phone] * Loreta Terrell APRN - 03/30/2021 9:19 AM EST [facility] Department of Thoracic Surgery Inpatient Post Op Check Note Patient Name: Rajan Marquez Patient : 1950 Patient [facility] Attending Surgeon: GILMER FOSTER ID: Rajan Marquez is a 70 y.o. male who is 1 Day Post-Op s/p LULobectomy for NSCLC. Subjective/Last 24 hours: - To OR for above yesterday - Reports pain at his chest tube site this AM, increased with coughing and deep breathing - No nausea/vomiting, chest pain, SOB Vitals: Temp: [36.3 ??C (97.3 ??F)-37.4 ??C (99.3 ??F)] Heart Rate: [63-80] Resp: [16-21] BP: (110-147)/(56-90) SpO2: [93 %-99 %] Heart Rate from SpO2: [67 bpm-76 bpm] Wt & BMI By Encounter Date Flowsheet Row Admission (Current) from 03/29/2021 in Short Stay Unit at [facility] Office Visit from 02/17/2021 in Otolaryngology at [facility] [place] Weight 100.3 kilograms, or 221 pounds 1.6 ounces 1 03/29/20211999 87.1 kilograms, or 192 pounds 1 02/17/2021 1345 BMI 33.61 1 03/29/20211999 30.07 1 02/17/2021 1345 Physical Exam: Gen: NAD, pleasant, sitting upright comfortably in bed HEENT: normocephalic, atraumatic, EOMI, sclerae anicteric Neck: supple, trachea midline Card: Regular rate, normotensive Pulm: non-labored breathing on RA, L CT to -20 sxn with 1 column intermittent airleak appreciated, incisions c/d/i covered with gauze and tegaderm Abd: soft, NT, BS+ : matt in place with 180 cc UOP Ext: warm, dry, no edema Neuro: A&Ox3, CN II-XII grossly intact, nonfocal, conversant L CT with 18 cc thin sanguinous output, L column intermittent AL, to -20 suction I/O: I/O last 3 completed shifts: In: 2622 [I.V.:2350; Other:170; IV Piggyback:102] Out: 1680 [Urine:1635; Other:18; Blood:27] Labs: Recent Results (from the past 72 hour(s)) POCT Glucose Result Value Ref Range POC Glucose 89 65 - 199 mg/dL Surgical Pathology Report Result Value Ref Range Surgical Pathology Report [id number] Location: OR; OR11; A The signing pathologist has (i) examined the relevant preparation(s) for the specimen(s) and (ii) rendered or confirmed the diagnosis(es). . Frozen Section FROZEN SECTION DIAGNOSIS AFS - Left upper lobe wedge, excision (1) for frozen section Positive for non-small cell carcinoma. 03/29/21 13:48 Electronically signed by: Malia Lacy MD Verified: 03/29/2021 13:49 Pathologist Performed at: -[facility] Dept. of Pathology, [place], [place] This intraoperative consultation should be interpreted as a preliminary diagnosis pending review of the entire specimen and special studies, if any. A final Surgical Pathology report will follow this preliminary Frozen Section report(s). Basic Metabolic Panel (non-fasting) Result Value Ref Range Glucose Lvl 138 65 - 199 mg/dL BUN 20 10 - 20 mg/dL Creatinine 1.15 0.80 - 1.50 mg/dL Sodium 136 135 - 145 mmol/L Potassium 3.9 3.5 - 5.0 mmol/L Chloride 103 98 - 107 mmol/L CO2 22 22 - 31 mmol/L Anion Gap 11 5 - 15 mmol/L Calcium 8.9 8.5 - 10.5 mg/dL Estimated GFR 64 >=60 mL/min/1.73 m?? Magnesium Result Value Ref Range Magnesium 0.67 (L) 0.69 - 1.07 mmol/L Phosphorus Result Value Ref Range Phosphorus 3.1 2.5 - 4.5 mg/dL Hemogram Result Value Ref Range WBC 15.8 (H) 4.0 - 9.5 x10(3)/mcL RBC 4.20 (L) 4.58 - 5.54 x10(6)/mcL Hemoglobin 13.1 (L) 13.7 - 16.5 g/dL Hematocrit 37.5 (L) 40.5 - 48.5 % MCV 89.3 82.9 - 93.1 fL MCH 31.2 27.5 - 32.1 pg MCHC 34.9 32.0 - 35.7 g/dL Platelets 183 145 - 357 x10(3)/mcL RDWSD 41.9 36.0 - 45.0 fL RDWCV 12.9 11.4 - 13.8 % MPV 10.3 7.6 - 12.9 fL nRBC % Auto 0.0 % nRBC Abs Auto 0.000 0.000 - 0.000 x10(3)/mcL Differential, Automated Result Value Ref Range Neutrophils % 86.1 % Neutr Abs (ANC) 13.63 (H) 1.70 - 6.10 x10(3)/mcL Lymphocytes % 7.9 % Lymphocytes Abs 1.2 0.9 - 3.2 x10(3)/mcL Monocytes % 5.6 % Monocyte Abs 0.9 0.3 - 0.9 x10(3)/mcL Eosinophils % 0.0 % Eosinophils Abs 0.0 0.0 - 0.4 x10(3)/mcL Basophils % 0.1 % Basophils Abs 0.0 0.0 - 0.1 x10(3)/mcL Immature Gran % 0.30 % Kecia Gran Abs 0.05 (H) 0.00 - 0.04 x10(3)/mcL Diagnostics: Post op CXR (03/29/21) Post LEFT upper lobectomy. No pneumothorax. Bilateral, RIGHT greater than LEFT, increased interstitial/vascular markings; cannot exclude pulmonary vascular hypertension. LEFT pleural chest tube in place. Micro: n/a Assessment: Rajan Marquez is a 70 y.o. male who is 1 Day Post-Op s/p LULobectomy. He is currently in stable condition and recovering well postoperatively. Plan: Neuro: tylenol, toradol available for pain. Oxycodone PRN, bupropion, nicotine patch Card: HDS, monitor vitals, tele, amio protocol, ASA Pulm: IS/cough/deep breathe/OOB/ambulate. Transition L CT to waterseal, monitor output. AM CXR. Albuterol, symbicort FENGI: HLIV, Regular diet. RBOs, PPI, senna, colace, zofran PRN Renal/: DC vernell, monitor UOP, flomax Heme: SQH ID: n/a Endo: n/a PPx: scds; SQH, Ambulate 4x a day. OOB. PT/OT consult Dispo: full code, floor status Loreta Terrell, [employer] 03/30/2021 Thoracic Surgery Service Pager [phone] * Vanessa Salcedo RN - 03/29/2021 10:04 PM EST 1999: Received patient from PACU, patient alert and oriented x4, calm and cooperative, respirationseven and easy, reports pain is okay but worsens with deep breaths and movement. Chest tube set to -20mmHg water seal wall suction with air leak 2129: Patient medicated per 2199: Dr. Rsoario at bedside. 699: Report given to Debbie VASQUEZ. * Lacy Rosario MD - 03/29/2021 10:01 PM EST [facility] Department of Thoracic Surgery Inpatient Post Op Check Note Patient Name: Rajan Marquez Patient : 1950 Patient Patient Location: [address] Attending Surgeon: GILMER FOSTER ID: Rajan Marquez is a 70 y.o. male who is Day of Surgery s/p LULobectomy for NSCLC. Subjective: No nausea/vomiting, chest pain, SOB, pain well controlled, offers no complaints. IS at bedside pulling 1750. Vitals: Temp: [36.3 ??C (97.3 ??F)-37.4 ??C (99.3 ??F)] Heart Rate: [66-80] Resp: [16-21] BP: (110-147)/(56-90) SpO2: [93 %-98 %] Heart Rate from SpO2: [67 bpm-76 bpm] Wt & BMI By Encounter Date Admission (Current) from 03/29/2021 in Short Stay Unit at [facility] Office Visit from 02/17/2021 in Otolaryngology at [facility] [place] Weight 100.3 kg (221 lb 1.6 oz) 1 03/29/20211999 87.1 kg (192 lb) 1 02/17/2021 1345 BMI 33.61 1 03/29/20211999 30.07 1 02/17/2021 1345 Physical Exam: Gen: NAD, pleasant, sitting upright comfortably in bed HEENT: normocephalic, atraumatic, EOMI, sclerae anicteric Neck: supple, trachea midline Card: Regular rate, normotensive Pulm: non-labored breathing on RA, L CT to -20 sxn with 1 column intermittent airleak appreciated, incisions c/d/i covered with gauze and tegaderm Abd: soft, NT, BS+ : matt in place with 180 cc UOP Ext: warm, dry, no edema Neuro: A&Ox3, CN II-XII grossly intact, nonfocal, conversant L CT with 90 cc thin sanguinous output, L column intermittent AL, to -20 suction I/O: I/O last 3 completed shifts: In: 1971 [I.V.:1850; Other:20; IV Piggyback:102] Out: 820 [Urine:775; Other:18; Blood:27] Labs: Recent Results (from the past 72 hour(s)) POCT Glucose Result Value Ref Range POC Glucose 89 65 - 199 mg/dL Surgical Pathology Report Result Value Ref Range Surgical Pathology Report [id number] Location: OR; OR11; A The signing pathologist has (i) examined the relevant preparation(s) for the specimen(s) and (ii) rendered or confirmed the diagnosis(es). . Frozen Section FROZEN SECTION DIAGNOSIS AFS - Left upper lobe wedge, excision (1) for frozen section Positive for non-small cell carcinoma. 03/29/21 13:48 Electronically signed by: Malia Lacy MD Verified: 03/29/2021 13:49 Pathologist Performed at: -[facility] [place] Dept. of Pathology, [place], [place] This intraoperative consultation should be interpreted as a preliminary diagnosis pending review of the entire specimen and special studies, if any. A final Surgical Pathology report will follow this preliminary Frozen Section report(s). Diagnostics: Post op CXR IMPRESSION Post LEFT upper lobectomy. No pneumothorax. Bilateral, RIGHT greater than LEFT, increased interstitial/vascular markings; cannot exclude pulmonary vascular hypertension. LEFT pleural chest tube in place. Micro: n/a Assessment: Rajan Marquez is a 70 y.o. male who is Day of Surgery s/p LULobectomy. He is currently in stable condition and recovering well postoperatively. Plan: Neuro: tylenol, toradol available for pain. Oxycodone PRN, buproprion Card: HDS, monitor vitals, tele, amio protocol, ASA Pulm: IS/cough/deep breathe/OOB/ambulate. Continue L CT to -20 suction, monitor output. AM CXR. Albuterol, symbicort FENGI: LR@50 ml/hr, Regular diet. RBOs, PPI, senna, colace, zofran PRN Renal/: Matt in place, monitor UOP, flomax Heme: SQH ID: n/a Endo: n/a PPx: scds; SQH, Ambulate 4x a day. OOB. Dispo: full code, floor status Lacy Rosario MD 03/29/2021 Thoracic Surgery Service Pager [phone] * Debbie Pride RN - 03/29/2021 5:39 PM EST 1720: RN break relief. Amiodarone drip started. CXR complete. * Isis Cr RN - 03/29/2021 4:44 PM EST Patient arrived from OR in bed, attached to monitors and alarms set appropriately for patient. VSS.Patient alert. CT tube connected to suction. 1829 - amio completed. VSS. 1929 - Report called to CHRISTINA Mendez. Post amiodarone qTC, unchanged. VSS. Patient alert and reportspain is controlled. documented in this encounter H&P Notes * Renu Tan PA - 03/29/2021 8:08 AM EST Patient Name: Rajan Marquez Patient Age: 70 y.o. Birthdate: 1950 Admit date: 03/29/2021 Attending Physician: Gilmer Foster MD Thoracic Surgery Preop NAME: Rajan Marquez DATE: 03/29/21 SURGEON: GILMER FOSTER PROCEDURE: Bronchoscopy, L VATS, robot assisted ARACELI wedge resection, possible LULobectomy with LN sampling BRIEF HISTORY: Rajan Marquez is a 70 y.o. male with an enlarging, 2.8cm, spiculated, FDG avid, ARACELI lung nodule concerning for primary lung cancer - clinically cT1cN0, stage IA3. He is not smoking (quit 03/11/21) and his exhaled CO is 0 ppm. The patient reports no interval change. There has been no interval medical illness or hospitalizations. Questions have been addressed. Smoking HX: Social History Tobacco Use Smoking Status Former Smoker ??? Packs/day: 2.00 ??? Years: 50.00 ??? Pack years: 100.00 ??? Quit date: 02/14/2021 ??? Years since quittin.1 Smokeless Tobacco Never Used Tobacco Comment 1 ppd for the past year PMH: Patient Active Problem List Diagnosis Date Noted ??? Mass of upper lobe of left lung 02/27/2021 PSH: Past Surgical History: Procedure Laterality Date ??? APPENDECTOMY MEDS: No current facility-administered medications on file prior to encounter. Current Outpatient Medications on File Prior to Encounter Medication Sig Dispense Refill ??? lisinopriL (Zestril) 10 mg Tablet Take 10 mg by mouth daily. ??? nicotine (Nicoderm CQ) 21 mg/24 hr Patch 24 hr Change 1 patch on the skin every 24 hours. ??? UNABLE TO FIND Cbd gummies to help with smoking cessation. ??? aspirin EC 81 mg Tablet, Delayed [...] Take 1 tablet by mouth daily. ALL: No Known Allergies Physical Exam No data found. Gen: NAD, pleasant, sitting up in bed HEENT: normocephalic, atraumatic Neck: supple, trachea midline Card: RRR, no M/R/G appreciated Pulm: Lungs CTAB, no wheeze/ronchi/rales appreciated, non-labored breathing on RA Abd: soft, NT, BS+ Ext: warm, dry, no edema Neuro: A&Ox3, CN II-XII grossly intact, nonfocal, conversant LABS: Lab Results Component Value Date WBC 9.6 (H) 02/13/2021 RBC 4.63 02/13/2021 HGB 14.5 02/13/2021 HCT 42.1 02/13/2021 MCV 90.9 02/13/2021 MCH 31.3 02/13/2021 MCHC 34.4 02/13/2021 PLATELET 202 02/13/2021 RDWCV 13.1 02/13/2021 Lab Results Component Value Date/Time NA 142 02/13/2021 03:56 PM K 3.9 02/13/2021 03:56 PM CL 106 02/13/2021 03:56 PM CO2 22 02/13/2021 03:56 PM BUN 21 (H) 02/13/2021 03:56 PM CREATININE 1.02 02/13/2021 03:56 PM FILM ON PACS: Y- CT chest, PET CONSENT: Yes/EMR - Yes Assessment/Plan: Rajan Marquez is a 70 y.o. male presenting today for planned Bronchoscopy, L VATS,robot assisted ARACELI wedge resection, possible LULobectomy with LN sampling due to enlarging, FDG avid ARACELI lesion concerning for malignancy. Consent signed and confirmed in chart. Questions addressed. Will proceed with planned surgery. STEVE Noguera 03/29/2021 Thoracic Surgery Service Pager [phone] documented in this encounter Nursing Notes * Gabi Cotto RN - 03/31/2021 12:04 AM EST 2130-MD Rosario paged and made aware of PVR [phone]. Awaiting call back. 0000-MD Rosario rounding. Plan to get pt up by 0130 to void and will page her with results. 0200-Spoke with MD Rosario about PVR. Plan to no longer do PVRs unless pt feels he did not empty hisbladder. documented in this encounter Miscellaneous Notes * Care Management Discharge - Melania Salinas RN - 03/31/2021 11:33 AM EST CARE MANAGEMENT FINAL DISCHARGE NOTE Chart reviewed, care reviewed with primary team and at interdisciplinary rounds. Patient is anticipated to be medically ready for discharge this weekend. Needs for Transition of Care: Plan for discharge is: Home without services Transportation: family or friend will provide Functional status prior to admission: Independent Home Environment: Others in the home: significant other (Patient lives alone sometimes or with SO).Current Living Arrangements: home/apartment/condo. Accessibility Concerns:one level home, ramp with railings to enter. Current Functional Ability: Independent DME used at home: none DME Needed at Discharge: none anticipated Patient is insured through: Primary Insurance: [employer] MANAGED MEDICARE Payor: [employer] MANAGED MEDICARE / Plan: [employer] HMO MANAGED MEDICARE COMPLETE / Product Type: *No Producttype* / Secondary Insurance: N/A Prescription Coverage: YES Preferred Pharmacy: No Pharmacies Listed This plan was formulated with input from patient and team. All are in agreement with plan. Initial IMM given: 03/30/21 11:18 AM OCM RS to provide DC IMM R. (Jose Manuel) CHRISTINA Salinas RN/CM - Cellphone: [phone] Pager: [phone] Covering Service RN/CM * Initial Assessments - Severino Reyes RN - 03/30/2021 10:03 AM EST Office of Care Management Initial Assessment Severino Reyes RN reviewed record and discussed patient with Care Team. Source of Information: Team, bedside nurse, medical record, and Patient Introduced self/reviewed role; services accepted. Reason for Hospitalization: I had a tumore removed from my left lung 03/29 - s/p LULobectomy for NSCLC 70 y.o. male who is 1 Day Post-Op s/p LULobectomy on 03/29/2021. He is currently in stable condition and recovering well postoperatively Covid Vaccination Status: 1st, 2nd & booster [...] last 30 days Current Decision-Making Capacity: Self Advance Care Planning: Attempt Cardiopulmonary Resuscitation - Inpatient <no information> -Advanced Directive: No, need to discuss (Would like to get paperword for Advance Directives) If AD's have not been completed, Shay Parish, SO, would be surrogate decision maker per [place] surrogate decision making law. (Only good for 180 days) Any patient receiving care at [facility] must abide by [place] law. The hierarchy for surrogate decision making [...] (i) The agent with financial power of billboard poster or a conservator appointed in accordance with RSA 464-A. (j) The guardian of the patient???s estate. Current Coping/Education/Information Needs: patient appears to understand hospital course Current Functional Ability: Assistive Person Functional Status Prior to Admission: Independent Home Environment: Others in the home: significant other (Patient lives alone sometimes or with SO).Current Living Arrangements: home/apartment/condo. Accessibility Concerns:one level home, ramp with railings to enter. Current DME: none Home Address confirmed as: [address] [place] [address] Social & Family Supports: All names listed below confirmed with patient as current and correct Extended Emergency Contact Information Primary Emergency Contact: SHAY PARISH Address: [address] [place] [address] of [facility] Mobile Relation: Life Partner Secondary Emergency Contact: NORBERTO MARY Mobile Relation: Friend Current Care Provided by: self Provides Primary Care For: no one Caregiver if needed: none Quality of Family relationships: supportive Community Resources being provided currently: none Behavioral Health History: anxiety, on medication, not an issue at this time Substance Use/Abuse : Social History Tobacco Use Smoking Status Former Smoker ??? Packs/day: 2.00 ??? Years: 50.00 ??? Pack years: 100.00 ??? Quit date: 02/14/2021 ??? Years since quittin.1 Smokeless Tobacco Never Used Tobacco Comment 1 ppd for the past year 0 No problems reported 1-2 Low level 3-5 Moderate level 6-8 Substantial level 9- 10 Severe level 0 to 7 points: Low risk 8 to 15 points: Medium risk 16 to 19 points: High risk 20 to 40 points: Addiction likely Other Pertinent/Service Specific Information: unclear if patient will have chest tube removed before discharge Health/Prescription Coverage: Primary Insurance: [facility] CoSchedule MEDICARE Payor: [facility] MANAGED MEDICARE / Plan: [facility] MANAGED MEDICARE COMPLETE / Product Type: *No Producttype* / Secondary Insurance: N/A Prescription Coverage: Yes Preferred Pharmacy: No Pharmacies Listed Patient reports he uses [facility], [place], [place] Status: Patient is a : No Primary Care Provider: Tami Olivia [phone] Patient/Caregiver Goals of Treatment: 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 PHONE: [phone] FAX: [phone] Transportation: no concerns Transportation Anticipated: family or friend will provide Concerns to be Addressed: discharge planning (To be determined) Assessment: Patient is admitted to Thoracic Surgery service for s/p LULobectomy for NSCLC 7 Plan: discharge to home tomorrow with possible VNA referral A member of the Care Management team will continue to monitor progress, follow for continuity of care and assist with transition of care planning. Severino Reyes RN CM(remote) Melania Salinas RN CM [phone] * Brief Op Note - Say Mo MD - 03/29/2021 4:35 PM EST Brief Operative Note Patient Name: Rajan Marquez : [id number] MR#: [id number] Case Date: 03/29/2021 Surgeon: Surgeon(s) and Role: * Gilmer Foster MD - Primary * Renu Tan PA - Physician Chief Investigator * Say Mo MD - Resident Preoperative diagnosis: left upper lobe lung mass Postoperative diagnosis: left upper lobe lung mass Procedure(s) (LRB): @THORACOSCOPY,SURGICAL,W\LOBECTOMY,TOTAL OR SEGMENTAL (WRVU 24.64) (Left) BRONCHOSCOPY, DIAGNOSTIC (WRVU 2.78) (N/A) @THORACOSCOPY, SURG; W/MEDIASTINAL& REGIONAL LYMPHADENECTOMY (WRVU 4.12) NERVE BLOCK, INTERCOSTAL NERVE (WRVU 1.18) (Left) @THORACOSCOPY, SURG; W/DX WEDGE RESC W/ANATOMIC LUNG RESC (WRVU 3) (Left) Anesthesia: General Findings: Left upper lobectomy for non-small cell lung carcinoma confirmed on frozen biopsy. AP window node sent for pathology. Complications: None Estimated Blood Loss: 27 mL * No values recorded between 03/29/2021 1:01 PM and 03/29/2021 4:35 PM * Specimens removed during surgery: Order Name Source Comment Collection Info Order Time SPECIMEN TO PATHOLOGY Freeze mass, not margin [id number] left upper lobe lung mass left upper lobe wedge excision YES, Please perform frozen section 03/29/2021 1:18 PM Number of tissue samples (in container) 1 Time specimen removed from patient: 1:18 PM PATHOLOGY ORDER UPDATE [id number] 03/29/2021 1:29 PM Additional information: Additional Info Enter requested changes: Fragment of tumor marked with stitch eD-H Order Id number [id number] SPECIMEN TO PATHOLOGY [id number] left upper lobe lung mass left upper lobectomy resection 03/29/2021 3:39 PM Number of tissue samples (in container) 1 Time specimen removed from patient: 3:36 PM SPECIMEN TO PATHOLOGY [id number] left upper lobe lung mass AP Window lymph node excision 03/29/2021 3:55 PM Number of tissue samples (in container) 1 Time specimen removed from patient: 3:54 PM Fluids: Intraprocedure Crystalloid Total Intake Lactated Ringers 1850.00 mL Dexamethasone 2.00 mL ceFAZolin 100.00 mL Total Intake 1952 mL Output Urine Output 605 mL Blood Loss 27 mL Total Output 632 mL Net Net Volume 1320 mL PRBCs: none (See Anesthesia Record/Report for Other Blood Products) Urine Output: 605 mL Drains: Left 28Fr chest tube Disposition: awakened from anesthesia, extubated and taken to the recovery room in a stable condition, having suffered no apparent untoward event. Condition: doing well without problems (Please see the Surgical Encounter Summary for any Implant and Specimen details pertinent to this patient.) Infection Bundle used? N/A * Op Note - Gilmer Foster MD - 03/29/2021 1:01 PM EST [facility] Operative Note Patient Name: Rajan Marquez : [id number] MR#: [id number] Case Date: 03/29/2021 Surgeon: Surgeon(s) and Role: * Gilmer Foster MD - Primary * Renu Tan PA - Physician Chief Investigator * Say Mo MD - Resident Preoperative diagnosis: left upper lobe lung mass Postoperative diagnosis: left upper lobe lung mass Procedure(s) (LRB): @THORACOSCOPY,SURGICAL,W\LOBECTOMY,TOTAL OR SEGMENTAL (WRVU 24.64) (Left) BRONCHOSCOPY, DIAGNOSTIC (WRVU 2.78) (N/A) @THORACOSCOPY, SURG; W/MEDIASTINAL& REGIONAL LYMPHADENECTOMY (WRVU 4.12) NERVE BLOCK, INTERCOSTAL NERVE (WRVU 1.18) (Left) @THORACOSCOPY, SURG; W/DX WEDGE RESC W/ANATOMIC LUNG RESC (WRVU 3) (Left) Findings: Non-small cell carcinoma of upper lobe of left lung Anesthesia: General Estimated Blood Loss: 27 mL Specimens removed during surgery: Order Name Source Comment Collection Info Order Time SPECIMEN TO PATHOLOGY Freeze mass, not margin [id number] left upper lobe lung mass left upper lobe wedge excision YES, Please perform frozen section 03/29/2021 1:18 PM Number of tissue samples (in container) 1 Time specimen removed from patient: 1:18 PM PATHOLOGY ORDER UPDATE [id number] 03/29/2021 1:29 PM Additional information: Additional Info Enter requested changes: Fragment of tumor marked with stitch eD-H Order Id number [id number] SPECIMEN TO PATHOLOGY [id number] left upper lobe lung mass left upper lobectomy resection 03/29/2021 3:39 PM Number of tissue samples (in container) 1 Time specimen removed from patient: 3:36 PM SPECIMEN TO PATHOLOGY [id number] left upper lobe lung mass AP Window lymph node excision 03/29/2021 3:55 PM Number of tissue samples (in container) 1 Time specimen removed from patient: 3:54 PM Drains: 28 Icelandic chest tube, left Surgical Closure: Primary Closure [...] details pertinent to this patient.) HPI/Surgical Indications: 70-year-old very recent former smoker with a spiculated PET avid left upper lobe lung mass suspicious for carcinoma Procedure Description: The patient was brought to the operating room and placed on the table in supine position. General anesthesia was induced. I assisted the anesthesia team with fiberoptic intubation with a double-lumen endotracheal tube. An orogastric tube was then placed, and I performed diagnostic bronchoscopy. There was a small amount of bleeding from the basal segment bronchus of the lower lobe of the right lung. No endobronchial lesions were seen, and the remainder of the bronchoscopy was unremarkable. I judged that it was safe and appropriate to proceed with the planned operation. The patient was positioned in the right lateral decubitus, left side up position and the chest was prepped and draped in the standard sterile fashion. A hard stop surgical timeout confirmed the patient's identity as well as the nature and laterality of the procedure to be performed. Subdermal bupivacaine was injected and the left hemithorax was entered at the eighth intercostal space at the posterior axillary line. The chest was surveyed for metastatic disease and none was seen. There were a few adhesions tethering the basal segment of the lower lobe to the diaphragm, and the lingula to the mediastinum. A second 13 mm incision was placed posteriorly, and the lung was retracted anteriorly suchthat rib blocks with bupivacaine could be placed from about the 10th to the third interspace. The adhesions between the lingula and the mediastinum were divided with the electrocautery such that the upper lobe of the lung could then be retracted posteriorly, and an approximately 3 cm utility incision was positioned over the hilum of the upper lobe of the left lung. A wound protector was placed. We then carefully palpated the apicoposterior segment of the left upper lobe and identified a large, firm mass in the posterior aspect of the apical portion of the lobe. The mass itself was too large and deep to completely excise in wedge fashion, but using a number of black loads of the thoracoscopic stapler it was possible to excise a wedge of lung parenchyma incorporating a portion of the mass. This was sent for frozen section analysis and confirmed non-small cell carcinoma of the lung. We therefore chose to proceed with the planned lobectomy. The mediastinal pleura overlying the hilum of the upper lobe of the left lung was divided with the electrocautery and the superior pulmonary vein exposed. The pulmonary vein was dissected circumferentially and divided with a serrato load of the thoracoscopic stapler. This maneuver exposed the bronchus to the upper lobe, but also a somewhat abnormallyanterior truncus anterior branch of the pulmonary artery. We dissected around this anterior trunk carefully and stapled and divided it with a serrato load of the stapler. We were then able to turn our att ention to the upper lobe bronchus. There were a few friable inflamed lymph nodes at the bifurcationof the upper lobe bronchus which made dissection somewhat challenging, but we were ultimately able to pass a vascular clamp between the upper lobe bronchus and the interlobar PA and have the tip of it enlarged at the bifurcation of the left mainstem bronchus. The upper lobe bronchus was occluded with a purple load of the thoracoscopic stapler, and after a test inflate confirmed adequate isolationof the left upper lobe the bronchus was divided without difficulty. The bronchial stump was then retracted posteriorly, and a single posterior descending branch of the pulmonary artery was identified. This was dissected circumferentially and stapled and divided. We then completed the anterior portion of the major fissure, which was composed mostly of anthracotic lymph nodes, with the electrocautery to adequately expose a large lingular pulmonary artery branch. This vessel was dissected circumferentially, and then stapled and divided with a serrato load of the stapler. These maneuvers left the upper lobe of the lung tethered only by some posterior parenchymal bridges. A series of firings of the purple load of the thoracoscopic stapler were used to divide these bridges, and the upper lobe of the lung was then placed in an anchor catch bag and retrieved through the wound protector. The chest was irrigated with warm normal saline and hemostasis appeared adequate. The aorticopulmonary window was explored and personal banking representative lymph nodes were resected. After assessing each port site for hemostasis, a 28 Icelandic chest tube was placed through the camera port and advanced to the apex of the hemithorax. The lung was allowed to reexpand under direct vision, and the incisions were closed in layers. The patient was extubated in the operating room without incident and was transported to the recovery area in stable condition. All of the sponge, needle and instrument counts were correct, and as the attending surgeon I was present and scrubbed at the bedside throughout the case. GILMER FOSTER MD documented in this encounter Plan of Treatment Scheduled Procedures Name Priority Associated Diagnoses Date/Ti me ELECTROPHYSIOLOGY PROCEDURE Persistent atrial fibrillation CARDIOVERSION-ELECTIVE (WRVU 2) persistent atrial fibrillation TRANSESOPHAGEAL ECHOCARDIOGR AM (WRVU 2.3) persistent atrial fibrillation documented as of this encounter Procedures Procedure Name Priority Date/Time Associated Diagnosis Comments XR CHEST PA AND LATERAL STAT 04/01/19 12:48 PM EST HEMOGRAM Routine 04/01/2021 3:59 AM EST DIFFERENTIAL, AUTOMATED Routine 04/01/19 3:59 AM EST HC VENIPUNCTURE Routine 04/01/2021 3:59 AM EST HC PHOSPHORUS, SERUM Routine 04/01/2021 3:59 AM EST HC MAGNESIUM, SERUM Routine 04/01/2021 3 :59 AM EST BASIC METABOLIC PANEL Routine 04/01/2021 3:59 AM EST XR CHEST PA AND LATERAL Routine 03/31/19 4:07 PM EST XR CHEST PA AND LATERAL Routine 03/31/19 9:28 AM EST HEMOGRAM Routine 03/31/2021 4:08 AM EST DIFFERENTIAL, AUTOMATED Routine 03/31/19 4:08 AM EST HC CBC,PLT & AUTO DIFF Routine 4:08 AM EST HC PHOSPHORUS, SERUM Routine 03/31/2021 4:08 AM EST HC MAGNESIUM, SERUM Routine 03/31/2021 4 :08 AM EST BASIC METABOLIC PANEL Routine 03/31/2021 4:08 AM EST XR CHEST PA AND LATERAL Routine 03/30/19 12:47 PM EST HEMOGRAM Routine 03/30/2021 4:04 AM EST DIFFERENTIAL, AUTOMATED Routine 03/30/19 4:04 AM EST HC CBC,PLT & AUTO DIFF Routine 4:04 AM EST HC PHOSPHORUS, SERUM Routine 03/30/2021 4:04 AM EST HC MAGNESIUM, SERUM Routine 03/30/2021 4 :04 AM EST BASIC METABOLIC PANEL Routine 03/30/2021 4:04 AM EST XR CHEST ONE VIEW STAT 03/29/2021 5:3 5 PM EST THORACOSCOPY, SURG; W/MEDIASTINAL& REGIONAL LYMPHADENECTOMY Routine 03/29/2021 4:12 PM EST Mass of upper lobe of left lung THORACOSCOPY, SURG; W/DX WEDGE RESC W/ANATOMIC LUNG RESC Routine 03/29/2021 4:12 PM EST Mass of upper lobe of left lung NERVE BLOCK, INTERCOSTAL NERVE Routine 03/29/2021 4:12 PM EST Mass of upper lobe of left lung SPECIMEN TO PATHOLOGY Routine 03/29/2021 3:55 PM EST SPECIMEN TO PATHOLOGY Routine 03/29/2021 3:39 PM EST SOLID TUMOR NGS PANEL Routine 03/29/2021 1:18 PM EST SURGICAL PATHOLOGY REPORT Routine 03/29/2021 1:18 PM EST SPECIMEN TO PATHOLOGY STAT 03/29/2021 1:18 PM EST Thoracoscopy With Wedge Resection And Anatomic Lung Resectn 03/29/2021 12:08 PM EST Mass of upper lobe of left lung Injection Anes Agent &/ Steroid Intercostal Nerve Single Level ([id number]) 03/29/2021 12:08 PM EST Mass of upper lobe of left lung Thoracoscopy With Mediastinal And Regional Lymphadenectomy 03/29/2021 12:08 PM EST Mass of upper lobe of left lung Bronchoscopy, Diagnostic ([id number]) 03/29/2021 12:08 PM EST Mass of upper lobe of left lung Thoracoscopy Surg Lobectomy ([id number]) 03/29/2021 12:08 PM EST Mass of upper lobe of left lung POCT GLUCOSE Routine 03/29/2021 12:02 PM EST THORACOSCOPY,SURGICAL,W \LOBECTOMY,TOTAL OR SEGMENTAL Routine 03/29/2021 11:02 AM EST Mass of upper lobe of left lung BRONCHOSCOPY,DIAGNOSTIC Routine 03/29/19 11:02 AM EST Mass of upper lobe of left lung documented in this encounter Results * XR Chest PA & Lateral (Generic) (04/17/2021 10:48 AM EST) Anatomical Region Laterality Modality Chest N/A Digital Radiogra phy Impressions 04/17/2021 10:54 AM EST Resolved pneumomediastinum and left pneumothorax. Minimal residual body wall air. Small left pleural effusion, with or without small subpulmonic component. Thank you for letting us participate in the care of this patient. ??If you are a health care provider and have any questions regarding this report, please contact the number below. ??For patients who have questions please contact the health director of critical care that requested your imaging first. ? Narrative 04/17/2021 10:54 AM EST EXAMINATION: XR CHEST PA AND LATERAL (GENERIC) CLINICAL HISTORY: s/p LULobectomy TECHNIQUE: PA and lateral views of the chest. COMPARISON: 04/01/2021. FINDINGS: Lateral view is mildly limited by image blurring from respiratory motion at the level of the hemidiaphragms. Left-sided pneumothorax is resolved. Pneumomediastinum is also resolved. Minimal residual body wall air on the left. Right lung is clear. Postoperative volume loss of left lung, with tenting of the right hemidiaphragm and small posteriorly-layering pleural effusion, with or without small subpulmonic component. Unchanged cardiac silhouette and vascular structures. No interval osseous findings. Procedure Note Savanna Lyles MD - 04/17/2021 EXAMINATION: XR CHEST PA AND LATERAL (GENERIC) CLINICAL HISTORY: s/p LULobectomy TECHNIQUE: PA and lateral views of the chest. COMPARISON: 04/01/2021. FINDINGS: Lateral view is mildly limited by image blurring fromrespiratory motion at the level of the hemidiaphragms. Left-sided pneumothorax is resolved. Pneumomediastinum is also resolved.Minimal residual body wall air on the left. Right lung is clear. Postoperativevolume loss of left lung, with tenting of the right hemidiaphragm and small posteriorly-layering pleural effusion, with or without small subpulmonic component. Unchanged cardiac silhouette and vascular structures. Nointerval osseous findings. IMPRESSION Resolved pneumomediastinum and left pneumothorax. Minimal residual body wall air. Small left pleural effusion, with or without small subpulmoniccomponent. Thank you for letting us participate in the care of this patient. If youare a health care provider and have any questions regarding this report,please contact the number below. For patients who have questions please contactthe health director of critical care that requested your imaging first. Electronically signed by: Savanna Lyles MD, [facility]([phone]), at 04/17/2021 10:54 AM Gilmer Foster MD IMG DX ORDERABLE S * XR Chest PA & Lateral (Generic) (04/01/2021 12:48 PM EST) Anatomical Region Laterality Modality Chest N/A Digital Radiogra phy Impressions 04/01/2021 2:47 PM EST 1. ??Small stable pneumothorax is stable status post left chest tube removal. There are stable emphysematous changes in the left chest wall and neck as well as stable mild pneumomediastinum. 2. ??Trace blunting of the costophrenic angle on the left could represent a trace amount of fluid. There is bibasilar atelectasis noted. 3. ??Opacity the right lung base persists and could represent a lung nodule or possibly nipple shadow. Thank you for letting us participate in the care of this patient. ??If you are a health care provider and have any questions regarding this report, please contact the number below. ??For patients who have questions please contact the health director of critical care that requested your imaging first. ? Narrative 04/01/2021 2:47 PM EST EXAMINATION: XR CHEST PA AND LATERAL (GENERIC) CLINICAL HISTORY: s/p chest tube removal reval for PTX TECHNIQUE: PA and lateral views of the chest COMPARISON: 03/31/2021 2 view chest radiograph FINDINGS: Left-sided chest tube has been removed. Unchanged size and appearance of the small residual left apical pneumothorax. Trace blunting of the left costophrenic angle could represent a trace amount of fluid on the frontal view. Bibasilar atelectasis is present. There is increased linear density posteriorly on the lateral view, consistent with some more consolidated linear atelectasis.. Nodular opacity overlies the right anterior fifth rib, as on the prior study though is less pronounced and may represent a nipple shadow. Cardiac and mediastinal contours stable. Mild superior pneumomediastinum. Again seen is marked subcutaneous emphysema within bilateral neck and left thoracic wall. Similar to prior. Procedure Note Howie Braxton MD - 04/01/2021 EXAMINATION: XR CHEST PA AND LATERAL (GENERIC) CLINICAL HISTORY: s/p chest tube removal reval for PTX TECHNIQUE: PA and lateral views of the chest COMPARISON: 03/31/2021 2 view chest radiograph FINDINGS: Left-sided chest tube has been removed. Unchanged size and appearance ofthe small residual left apical pneumothorax. Trace blunting of the leftcostophrenic angle could represent a trace amount of fluid on the frontal view.Bibasilar atelectasis is present. There is increased linear density posteriorly onthe lateral view, consistent with some more consolidated linearatelectasis.. Nodular opacity overlies the right anterior fifth rib, as on the priorstudy though is less pronounced and may represent a nipple shadow. Cardiac and mediastinal contours stable. Mild superiorpneumomediastinum. Again seen is marked subcutaneous emphysema within bilateral neck andleft thoracic wall. Similar to prior. IMPRESSION 1. Small stable pneumothorax is stable status post left chest tuberemoval. There are stable emphysematous changes in the left chest wall and neck aswell as stable mild pneumomediastinum. 2. Trace blunting of the costophrenic angle on the left could represent atrace amount of fluid. There is bibasilar atelectasis noted. 3. Opacity the right lung base persists and could represent a lung noduleor possibly nipple shadow. Thank you for letting us participate in the care of this patient. If youare a health care provider and have any questions regarding this report,please contact the number below. For patients who have questions please contactthe health director of critical care that requested your imaging first. Gilmer Foster MD IMG DX ORDERABLE S * (ABNORMAL) Differential, Automated (04/01/2021 3:59 AM EST) Neutrophil % 74.5 % [facility] Neutrophil Absolute 7.27(H) 1.70 - 6.10 x10(3)/mc L [facility] Lymph % 14.3 % [facility] Lymphocytes Abs 1.4 0.9 - 3.2 x10(3)/mc L [facility] Monocyte % 9.1 % [facility] Monocyte Abs 0.9 0.3 - 0.9 x10(3)/[facility] Eos % 1.4 % [facility] Eosinophils Abs 0.1 0.0 - 0.4 x10(3)/[facility] Basophil % 0.3 % [facility] Baso Absolute 0.0 0.0 - 0.1 x10(3)/[facility] Immature Gran % 0.40 % [facility] Comment: Immature granulocytes(IG's)percentage and absolute count will include metamyelocytes, myelocytes, and promyelocytes. Blood smears from CBCs yielding IG's will be scanned manually for concordance. If this scan disagrees with the automated IG or if promyelocytes are noted, a manual differential will be performed. Immature Gran Absolute 0.04 0.00 - 0.04 x10(3)/[facility] Blood 04/01/2021 3:59 AM EST 04/01/2021 4:11 AM EST Narrative Resulting Agency Comment Spec In Lab Lacy Rosario MD HEMATOLOGY ORDERABLE S [facility] [place] [address] * (ABNORMAL) Hemogram (04/01/2021 3:59 AM EST) White Blood Cell 9.8(H) 4.0 - 9.5 x10(3)/[facility] Red Blood Cell 4.21(L) 4.58 - 5.54 x10(6)/[facility] Hemoglobin 12.9(L) 13.7 - 16.5 g/dL [facility] Hematocrit 38.6(L) 40.5 - 48.5 % [facility] Mean Cell Volume 91.7 82.9 - 93.1 fL [facility] Mean Cell Hemoglobin 30.6 27.5 - 32.1 pg [facility] Mean Cell Hemoglobin Concentration 33.4 32.0 - 35.7 g/dL [facility] Platelet 176 145 - 357 x10(3)/mc L [facility] RDW Standard Deviation 44.7 36.0 - 45.0 [facility] RDW coefficient of variation 13.2 11.4 - 13.8 % [facility] Mean Platelet Volume 10.1 7.6 - 12.9 [facility] NRBC% auto 0.0 % [facility] NRBC Absolute 0.000 0.000 - 0.000 x10(3)/mc L [facility] Blood 04/01/2021 3:59 AM EST 04/01/2021 4:11 AM EST Narrative Resulting Agency Comment Spec In Lab Lacy Rosario MD HEMATOLOGY ORDERABLE S Performing Organization Address City/[facility]/ZIP Co de Phone Number [facility] [place] [address] * Phosphorus (04/01/2021 3:59 AM EST) Phosphorus 3.2 2.5 - 4.5 mg/dL [facility] Blood 04/01/2021 3:59 AM EST 04/01/2021 4:11 AM EST Narrative Resulting Agency Comment Spec In Lab Gilmer Foster MD CHEMISTRY ORDERA BLES Performing Organization Address City/[facility]/ZIP Co de Phone Number [facility] [place] [address] * Magnesium (04/01/2021 3:59 AM EST) Magnesium 0.85 0.69 - 1.07 mmol/L [facility] Blood 04/01/2021 3:59 AM EST 04/01/2021 4:11 AM EST Narrative Resulting Agency Comment Spec In Lab Gilmer Foster MD CHEMISTRY ORDERA BLES [facility] [place] [address] * (ABNORMAL) Basic Metabolic Panel (non-fasting) (04/01/2021 3:59 AM EST) Glucose 107 65 - 199 mg/dL [facility] Comment:Diabetes: >=200 mg/d L plus symptoms Blood Urea Nitrogen 22(H) 10 - 20 mg/dL [facility] Creatinine 1.27 0.80 - 1.50 mg/dL [facility] Sodium 137 135 - 145 mmol/L [facility] Potassium 4.3 3.5 - 5.0 mmol/L [facility] Comment: Please note: ??Patients with WBC >100,000 may have falsely elevated Potassium levels. ??For accurate Potassium quantification in these patients send serum separator tube (gold top) for subsequent determinations. ??Contact the Clinical Chemistry Laboratory if there are any questions. Chloride 104 98 - 107 mmol/L [facility] Carbon Dioxide 21(L) 22 - 31 mmol/L [facility] Anion Gap 12 5 - 15 mmol/L [facility] Calcium 8.8 8.5 - 10.5 mg/dL [facility] Est Glomerular Filtration Rate 56(L) >=60 mL/min/1. 73 m?? [facility] Comment: This patient? s estimated glomerular filtration rate (eGFR) is between 56 mL/min/1.73 m2 (patients with less muscle mass per kg body weight) and 65 mL/min/1.73 m2 (patients with more muscle mass per kg body weight) as determined by the CKD-EPI equation. Assessment of eGFR is not appropriate when creatinine concentrations are rapidly changing. For clinical decisions where creatinine clearance will affect therapy, a 24-hour urine creatinine clearance may be advised. Assignment of CKD stage 1 - 5 for patients with an eGFR near the transition point between stages may be based on clinical assessment of muscle mass and symptoms in addition to eGFR. Blood 04/01/2021 3:59 AM EST 04/01/2021 4:11 AM EST Narrative Resulting Agency Comment Spec In Lab Gilmer Foster MD CHEMISTRY CARMEN GALINDO [facility] [place] [address] * XR Chest PA & Lateral (Generic) (03/31/2021 4:07 PM EST) Anatomical Region Laterality Modality Chest N/A Digital Radiogra phy Impressions 03/31/2021 4:30 PM EST 1. Unchanged position of left-sided chest tube. 2. Unchanged small left apical pneumothorax. 3. Nodule at the right lateral lung, where the right anterior fifth and posterior eighth ribs overlap, not present on the prior comparison CT of 12/23/2020. Thank you for letting us participate in the care of this patient. ??If you are a health care provider and have any questions regarding this report, please contact the number below. ??For patients who have questions please contact the health director of critical care that requested your imaging first. ? Narrative 03/31/2021 4:30 PM EST EXAMINATION: XR CHEST PA AND LATERAL (GENERIC) CLINICAL HISTORY: s/p LULobectomy, s/p [address] clamp trial, please eval for changes/ptx/effusion TECHNIQUE: PA and lateral views of the chest COMPARISON: Earlier, same day FINDINGS: Left-sided chest tube remains at the medial apex. Unchanged size and appearance of the small residual left apical pneumothorax. No pleural effusion. Bibasilar atelectasis is present. Similar to prior. No new airspace consolidation. Nodular opacity overlies the right anterior fifth rib. Cardiac and mediastinal contours normal. Mild superior pneumomediastinum. Again seen is marked subcutaneous emphysema within bilateral neck and left thoracic wall. Similar to prior. Procedure Note Jose Aaron MD - 03/31/2021 EXAMINATION: XR CHEST PA AND LATERAL (GENERIC) CLINICAL HISTORY: s/p LULobectomy, s/p [address] clamp trial, please evalfor changes/ptx/effusion TECHNIQUE: PA and lateral views of the chest COMPARISON: Earlier, same day FINDINGS: Left-sided chest tube remains at the medial apex. Unchanged size andappearance of the small residual left apical pneumothorax. No pleural effusion. Bibasilar atelectasis is present. Similar to prior. No new airspace consolidation. Nodular opacity overlies the right anterior fifth rib. Cardiac and mediastinal contours normal. Mild superiorpneumomediastinum. Again seen is marked subcutaneous emphysema within bilateral neck andleft thoracic wall. Similar to prior. IMPRESSION 1. Unchanged position of left-sided chest tube. 2. Unchanged small left apical pneumothorax. 3. Nodule at the right lateral lung, where the right anterior fifth and posterior eighth ribs overlap, not present on the prior comparison CT of 12/23/2020. Thank you for letting us participate in the care of this patient. If youare a health care provider and have any questions regarding this report,please contact the number below. For patients who have questions please contactthe health director of critical care that requested your imaging first. Loreta Casillas APRN IMG DX ORDERABL ES * XR Chest PA & Lateral (Generic) (03/31/2021 9:28 AM EST) Anatomical Region Laterality Modality Chest N/A Digital Radiogra phy Impressions 03/31/2021 11:31 AM EST 1. ??Slightly decreased size of the small left apical pneumothorax. Unchanged position of the left chest tube. 2. ??Increased subcutaneous emphysema in the left chest wall and bilateral lower neck. I have personally reviewed the image(s) and the resident's interpretation and agree with the findings, Savanah Suazo MD at 03/31/2021 11:31 AM Thank you for letting us participate in the care of this patient. ??If you are a health care provider and have any questions regarding this report, please contact the number below. ??For patients who have questions please contact the health director of critical care that requested your imaging first. ? Electronically signed by: Savanah Suazo MD, [facility] ([phone]), at 03/31/2021 11:31 AM Narrative 03/31/2021 11:31 AM EST EXAMINATION: XR CHEST PA AND LATERAL (GENERIC) CLINICAL HISTORY: Interval changes with chest tube in place TECHNIQUE: PA and lateral views of the chest COMPARISON: 03/30/2021 FINDINGS: Unchanged position of the left chest tube coursing up the posterior pleural space and terminating at the apex. Slight interval decrease in size of the small left apical pneumothorax from 15 mm to 8 mm of separation between the pleural margin and the chest wall. Increased extent of the subcutaneous emphysema, now involving the left chest wall and bilateral lower neck. Chronic elevation of the left hemidiaphragm exaggerated by gaseous distention of the stomach bubble. Mild bibasilar atelectasis. No discrete airspace opacity; however, overlying chest wall emphysema limits evaluation. No pleural effusion. No right pneumothorax. Normal cardiomediastinal silhouette. Resolved pulmonary vascular congestion. Procedure Note Savanah Paredes MD - 03/31/2021 EXAMINATION: XR CHEST PA AND LATERAL (GENERIC) CLINICAL HISTORY: Interval changes with chest tube in place TECHNIQUE: PA and lateral views of the chest COMPARISON: 03/30/2021 FINDINGS: Unchanged position of the left chest tube coursing up the posteriorpleural space and terminating at the apex. Slight interval decrease in size of thesmall left apical pneumothorax from 15 mm to 8 mm of separation between thepleural margin and the chest wall. Increased extent of the subcutaneous emphysema,now involving the left chest wall and bilateral lower neck. Chronic elevationof the left hemidiaphragm exaggerated by gaseous distention of the stomachbubble. Mild bibasilar atelectasis. No discrete airspace opacity; however, overlyingchest wall emphysema limits evaluation. No pleural effusion. No rightpneumothorax. Normal cardiomediastinal silhouette. Resolved pulmonary vascularcongestion. IMPRESSION 1. Slightly decreased size of the small left apical pneumothorax.Unchanged position of the left chest tube. 2. Increased subcutaneous emphysema in the left chest wall and bilaterallower neck. I have personally reviewed the image(s) and the resident's interpretationand agree with the findings, Savanah Suazo MD at 03/31/2021 11:31AM Thank you for letting us participate in the care of this patient. If youare a health care provider and have any questions regarding this report,please contact the number below. For patients who have questions please contactthe health director of critical care that requested your imaging first. Electronically signed by: Savanah Suazo MD, [facility] ([phone]), at 03/31/2021 11:31 AM Gilmer Foster MD IMG DX ORDERABLE S * (ABNORMAL) Differential, Automated (03/31/2021 4:08 AM EST) Neutrophil % 71.6 % [facility] Neutrophil Absolute 7.59(H) 1.70 - 6.10 x10(3)/mc L [facility] Lymph % 18.1 % [facility] Lymphocytes Abs 1.9 0.9 - 3.2 x10(3)/mc L [facility] Monocyte % 8.7 % [facility] Monocyte Abs 0.9 0.3 - 0.9 x10(3)/mc L [facility] Eos % 0.6 % [facility] Eosinophils Abs 0.1 0.0 - 0.4 x10(3)/[facility] Basophil % 0.5 % [facility] Baso Absolute 0.0 0.0 - 0.1 x10(3)/[facility] Immature Gran % 0.50 % [facility] Comment: Immature granulocytes(IG's)percentage and absolute count will include metamyelocytes, myelocytes, and promyelocytes. Blood smears from CBCs yielding IG's will be scanned manually for concordance. If this scan disagrees with the automated IG or if promyelocytes are noted, a manual differential will be performed. Immature Gran Absolute 0.05(H) 0.00 - 0.04 x10(3)/[facility] Blood 03/31/2021 4:08 AM EST 03/31/2021 4:16 AM EST Narrative Resulting Agency Comment Spec In Lab Lacy Rosario MD HEMATOLOGY ORDERABLE S [facility] [place] [address] * (ABNORMAL) Hemogram (03/31/2021 4:08 AM EST) White Blood Cell 10.6(H) 4.0 - 9.5 x10(3)/ L [facility] Red Blood Cell 3.99(L) 4.58 - 5.54 x10(6)/mc L [facility] Hemoglobin 12.3(L) 13.7 - 16.5 g/dL [facility] Hematocrit 36.1(L) 40.5 - 48.5 % [facility] Mean Cell Volume 90.5 82.9 - 93.1 fL [facility] Mean Cell Hemoglobin 30.8 27.5 - 32.1 pg [facility] Mean Cell Hemoglobin Concentration 34.1 32.0 - 35.7 g/dL [facility] Platelet 171 145 - 357 x10(3)/mc L [facility] RDW Standard Deviation 43.4 36.0 - 45.0 [facility] RDW coefficient of variation 13.2 11.4 - 13.8 % [facility] Mean Platelet Volume 10.1 7.6 - 12.9 [facility] NRBC% auto 0.0 % [facility] NRBC Absolute 0.000 0.000 - 0.000 x10(3)/mc L [facility] Blood 03/31/2021 4:08 AM EST 03/31/2021 4:16 AM EST Narrative Resulting Agency Comment Spec In Lab Lacy Rosario MD HEMATOLOGY ORDERABLE S Performing Organization Address City/[facility]/ZIP Co de Phone Number [facility] [place] [address] * Phosphorus (03/31/2021 4:08 AM EST) Phosphorus 3.2 2.5 - 4.5 mg/dL [facility] Blood 03/31/2021 4:08 AM EST 03/31/2021 4:16 AM EST Narrative Resulting Agency Comment Spec In Lab Gilmer Foster MD CHEMISTRY ORDERA BLES Performing Organization Address City/[facility]/ZIP Co de Phone Number [facility] [place] [address] * Magnesium (03/31/2021 4:08 AM EST) Magnesium 0.86 0.69 - 1.07 mmol/L [facility] Blood 03/31/2021 4:08 AM EST 03/31/2021 4:16 AM EST Narrative Resulting Agency Comment Spec In Lab Gilmer Foster MD CHEMISTRY ORDERA BLES Performing Organization Address City/[facility]/ZIP Co de Phone Number [facility] [place] [address] * (ABNORMAL) Basic Metabolic Panel (non-fasting) (03/31/2021 4:08 AM EST) Glucose 114 65 - 199 mg/dL [facility] Comment:Diabetes: >=200 mg/d L plus symptoms Blood Urea Nitrogen 17 10 - 20 mg/dL [facility] Creatinine 1.22 0.80 - 1.50 mg/dL [facility] Sodium 138 135 - 145 mmol/L [facility] Potassium 3.8 3.5 - 5.0 mmol/L [facility] Comment: Please note: ??Patients with WBC >100,000 may have falsely elevated Potassium levels. ??For accurate Potassium quantification in these patients send serum separator tube (gold top) for subsequent determinations. ??Contact the Clinical Chemistry Laboratory if there are any questions. Chloride 105 98 - 107 mmol/L [facility] Carbon Dioxide 22 22 - 31 mmol/L [facility] Anion Gap 11 5 - 15 mmol/L [facility] Calcium 8.5 8.5 - 10.5 mg/dL [facility] Est Glomerular Filtration Rate 59(L) >=60 mL/min/1. 73 m?? [facility] Comment: This patient? s estimated glomerular filtration rate (eGFR) is between 59 mL/min/1.73 m2 (patients with less muscle mass per kg body weight) and 69 mL/min/1.73 m2 (patients with more muscle mass per kg body weight) as determined by the CKD-EPI equation. Assessment of eGFR is not appropriate when creatinine concentrations are rapidly changing. For clinical decisions where creatinine clearance will affect therapy, a 24-hour urine creatinine clearance may be advised. Assignment of CKD stage 1 - 5 for patients with an eGFR near the transition point between stages may be based on clinical assessment of muscle mass and symptoms in addition to eGFR. Blood 03/31/2021 4:08 AM EST 03/31/2021 4:16 AM EST Narrative Resulting Agency Comment Spec In Lab Gilmer Foster MD CHEMISTRY CARMEN GALINDO [facility] [place] [address] * (ABNORMAL) XR Chest PA & Lateral (Generic) (03/30/2021 12:47 PM EST) Anatomical Region Laterality Modality Chest N/A Digital Radiogra phy Impressions 03/30/2021 1:18 PM EST Interval development of small left apical pneumothorax. Unexpected finding. Thank you for letting us participate in the care of this patient. ??If you are a health care provider and have any questions regarding this report, please contact the number below. ??For patients who have questions please contact the health director of critical care that requested your imaging first. ? Narrative 03/30/2021 1:18 PM EST EXAMINATION: XR CHEST PA AND LATERAL (GENERIC) CLINICAL HISTORY: S/P chest tube to water seal after lobectomy TECHNIQUE: PA and lateral views of the chest COMPARISON: Radiographs March 29, [address] chest December 23, 2020 FINDINGS: Apically directed left chest tube is intact in unchanged position. Small pneumothorax is now present. Subcutaneous emphysema over the left hemithorax is more prominent. No right pneumothorax. No pleural effusion or pulmonary parenchymal consolidation. Cardiomediastinal contours are normal. Central pulmonary vasculature remains prominent. No free air below the diaphragm or displaced fracture. 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 Resulting Agency Comment Unexpected Finding Procedure Note Sara Aaron MD - 03/30/2021 EXAMINATION: XR CHEST PA AND LATERAL (GENERIC) CLINICAL HISTORY: S/P chest tube to water seal after lobectomy TECHNIQUE: PA and lateral views of the chest COMPARISON: Radiographs March 29, [address] chest December 23, 2020 FINDINGS: Apically directed left chest tube is intact in unchanged position. Small pneumothorax is now present. Subcutaneous emphysema over the lefthemithorax is more prominent. No right pneumothorax. No pleural effusion or pulmonary parenchymal consolidation. Cardiomediastinal contours are normal. Central pulmonary vasculatureremains prominent. No free air below the diaphragm or displaced fracture. Cervicothoracic spondylosis and bilateral acromioclavicular osteoarthropathy areunchanged. IMPRESSION Interval development of small left apical pneumothorax. Unexpectedfinding. Thank you for letting us participate in the care of this patient. If youare a health care provider and have any questions regarding this report,please contact the number below. For patients who have questions please contactthe health director of critical care that requested your imaging first. Gilmer Foster MD IMG DX ORDERABLE S * (ABNORMAL) Differential, Automated (03/30/2021 4:04 AM EST) Neutrophil % 86.1 % [facility] Neutrophil Absolute 13.63(H) 1.70 - 6.10 x10(3)/mc L [facility] Lymph % 7.9 % [facility] Lymphocytes Abs 1.2 0.9 - 3.2 x10(3)/mc L [facility] Monocyte % 5.6 % [facility] Monocyte Abs 0.9 0.3 - 0.9 x10(3)/mc L [facility] Eos % 0.0 % [facility] Eosinophils Abs 0.0 0.0 - 0.4 x10(3)/mc L [facility] Basophil % 0.1 % [facility] Baso Absolute 0.0 0.0 - 0.1 x10(3)/mc L [facility] Immature Gran % 0.30 % [facility] Comment: Immature granulocytes(IG's)percentage and absolute count will include metamyelocytes, myelocytes, and promyelocytes. Blood smears from CBCs yielding IG's will be scanned manually for concordance. If this scan disagrees with the automated IG or if promyelocytes are noted, a manual differential will be performed. Immature Gran Absolute 0.05(H) 0.00 - 0.04 x10(3)/[facility] Blood 03/30/2021 4:04 AM EST 03/30/2021 4:14 AM EST Narrative Resulting Agency Comment Spec In Lab Lacy Rosario MD HEMATOLOGY ORDERABLE S Performing Organization Address City/State/[facility] Co de Phone Number [facility] [place] [address] * (ABNORMAL) Hemogram (03/30/2021 4:04 AM EST) White Blood Cell 15.8(H) 4.0 - 9.5 x10(3)/[facility] Red Blood Cell 4.20(L) 4.58 - 5.54 x10(6)/[facility] Hemoglobin 13.1(L) 13.7 - 16.5 g/dL [facility] Hematocrit 37.5(L) 40.5 - 48.5 % [facility] Mean Cell Volume 89.3 82.9 - 93.1 fL [facility] Mean Cell Hemoglobin 31.2 27.5 - 32.1 pg [facility] Mean Cell Hemoglobin Concentration 34.9 32.0 - 35.7 g/dL [facility] Platelet 183 145 - 357 x10(3)/[facility] RDW Standard Deviation 41.9 36.0 - 45.0 fL [facility] RDW coefficient of variation 12.9 11.4 - 13.8 % [facility] Mean Platelet Volume 10.3 7.6 - 12.9 fL [facility] NRBC% auto 0.0 % [facility] NRBC Absolute 0.000 0.000 - 0.000 x10(3)/mc L [facility] Blood 03/30/2021 4:04 AM EST 03/30/2021 4:14 AM EST Narrative Resulting Agency Comment Spec In Lab Lacy Rosario MD HEMATOLOGY ORDERABLE S Performing Organization Address City/[facility]/ZIP Co de Phone Number [facility] [address] * Phosphorus (03/30/2021 4:04 AM EST) Phosphorus 3.1 2.5 - 4.5 mg/dL [facility] Blood 03/30/2021 4:04 AM EST 03/30/2021 4:14 AM EST Narrative Resulting Agency Comment Spec In Lab Gilmer Foster MD CHEMISTRY ORDERA BLES Performing Organization Address [facility] Co de Phone Number [facility] [place] [address] * (ABNORMAL) Magnesium (03/30/2021 4:04 AM EST) Magnesium 0.67(L) 0.69 - 1.07 mmol/L [facility] Blood 03/30/2021 4:04 AM EST 03/30/2021 4:14 AM EST Narrative Resulting Agency Comment Spec In Lab Gilmer Foster MD CHEMISTRY ORDERA BLES Performing Organization Address [facility] Co de Phone Number [facility] [place] [address] * Basic Metabolic Panel (non-fasting) (03/30/2021 4:04 AM EST) Glucose 138 65 - 199 mg/dL [facility] Comment:Diabetes: >=200 mg/d L plus symptoms Blood Urea Nitrogen 20 10 - 20 mg/dL [facility] Creatinine 1.15 0.80 - 1.50 mg/dL [facility] Sodium 136 135 - 145 mmol/L [facility] Potassium 3.9 3.5 - 5.0 mmol/L [facility] Comment: Please note: ??Patients with WBC >100,000 may have falsely elevated Potassium levels. ??For accurate Potassium quantification in these patients send serum separator tube (gold top) for subsequent determinations. ??Contact the Clinical Chemistry Laboratory if there are any questions. Chloride 103 98 - 107 mmol/L [facility] Carbon Dioxide 22 22 - 31 mmol/L [facility] Anion Gap 11 5 - 15 mmol/L [facility] Calcium 8.9 8.5 - 10.5 mg/dL [facility] Est Glomerular Filtration Rate 64 >=60 mL/min/1. 73 m?? [facility] Comment: This patient? s estimated glomerular filtration rate (eGFR) is between 64 mL/min/1.73 m2 (patients with less muscle mass per kg body weight) and 74 mL/min/1.73 m2 (patients with more muscle mass per kg body weight) as determined by the CKD-EPI equation. Assessment of eGFR is not appropriate when creatinine concentrations are rapidly changing. For clinical decisions where creatinine clearance will affect therapy, a 24-hour urine creatinine clearance may be advised. Assignment of CKD stage 1 - 5 for patients with an eGFR near the transition point between stages may be based on clinical assessment of muscle mass and symptoms in addition to eGFR. Blood 03/30/2021 4:04 AM EST 03/30/2021 4:14 AM EST Narrative Resulting Agency Comment Spec In Lab Gilmer Foster MD CHEMISTRY ORDERA JOSIE [facility] [place] [address] * XR Chest One View (03/29/2021 5:35 PM EST) Anatomical Region Laterality Modality Chest N/A Digital Radiogra phy Impressions 03/29/2021 5:37 PM EST Post LEFT upper lobectomy. No pneumothorax. Bilateral, RIGHT greater than LEFT, increased interstitial/vascular markings; cannot exclude pulmonary vascular hypertension. LEFT pleural chest tube in place. Thank you for letting us participate in the care of this patient. ??If you are a health care provider and have any questions regarding this report, please contact the number below. ??For patients who have questions please contact the health director of critical care that requested your imaging first. ? Electronically signed by: Casa Sanchez MD, [facility] ([phone]), at 03/29/2021 5:37 PM Narrative 03/29/2021 5:37 PM EST EXAMINATION: XR CHEST ONE VIEW CLINICAL HISTORY: s/p LULobectomy, chest tube in place, eval for ptx/effusion TECHNIQUE: 1 view of the chest COMPARISON: Chest CT from 12/23/2020 FINDINGS: Post LEFT upper lobectomy. No pneumothorax. Bilateral, RIGHT greater than LEFT, increased interstitial/vascular markings; cannot exclude pulmonary vascular hypertension. LEFT pleural chest tube in place. Procedure Note Casa Sanchez MD - 03/29/2021 EXAMINATION: XR CHEST ONE VIEW CLINICAL HISTORY: s/p LULobectomy, chest tube in place, eval forptx/effusion TECHNIQUE: 1 view of the chest COMPARISON: Chest CT from 12/23/2020 FINDINGS: Post LEFT upper lobectomy. No pneumothorax. Bilateral, RIGHT greater than LEFT, increased interstitial/vascularmarkings; cannot exclude pulmonary vascular hypertension. LEFT pleural chest tube in place. IMPRESSION Post LEFT upper lobectomy. No pneumothorax. Bilateral, RIGHT greater than LEFT, increased interstitial/vascularmarkings; cannot exclude pulmonary vascular hypertension. LEFT pleural chest tube in place. Thank you for letting us participate in the care of this patient. If youare a health care provider and have any questions regarding this report,please contact the number below. For patients who have questions please contactthe health director of critical care that requested your imaging first. Electronically signed by: Casa Sanchez MD, [facility]([phone]), at 03/29/2021 5:37 PM Gilmer Foster MD IMG DX ORDERABLE S * Specimen to Pathology (03/29/2021 3:55 PM EST) AP Specimen 03/29/2021 3:55 PM EST 03/29/2021 3:55 PM EST Narrative [facility] - 03/29/2021 3:55 PM EST Specimen requisition ordered. ??Separate Pathology report to follow Gilmer Foster MD PATHOLOGY/CYTOLO GY ORDERABLES Performing Organization Address [facility]/ZIP Co de Phone Number [facility] [address] * Specimen to Pathology (03/29/2021 3:39 PM EST) AP Specimen 03/29/2021 3:39 PM EST 03/29/2021 3:39 PM EST Narrative [facility] - 03/29/2021 3:39 PM EST Specimen requisition ordered. ??Separate Pathology report to follow Gilmer Foster MD PATHOLOGY/CYTOLO GY ORDERABLES Performing Organization Address City/[facility]/[place] [address] * Solid Tumor NGS Panel (03/29/2021 1:18 PM EST) Tissue 03/29/2021 1:18 PM EST 04/10/2021 2:38 PM EST Narrative Resulting Agency Comment Spec In Lab Gilmer Foster MD PATHOLOGY/CYTOLO GY ORDERABLES Performing Organization Address City/[facility]/ZIP Co de Phone Number [facility] [place] [address] * Surgical Pathology Report (03/29/2021 1:18 PM EST) Final Diagnosis [id number] ? Location: [facility]; [facility]; A The signing pathologist has (i) examined the relevant preparation(s) for the specimen(s) and (ii) rendered or confirmed the diagnosis(es). . ? Addendum ADDENDUM DISCUSSION Tissue: ??Left upper lobectomy Tumor Proportion Score (TPS): ?% Expression: 5% Interpretation Table: PD-L1 assay (22C3 pharmDX) for Keytruda Tumor Proportion Score (TPS): ?? PD-L1 Expression (5%) ? <1% ?PD-L1 Negative ? >=1% ? PD-L1 Expression Immunohistochemical assay was performed on paraffin-embedded tissue sections fixed in 10% neutral buffered formalin for 6-72 hours using the polymer system technique with appropriate controls. The assay was performed according to the supervisor alum plant's instructions using Anti-PD-L1 (22C3, pharmDX) antibody. Electronically signed by: ?Eugene FLORES PhD, Alysia Verified: ??04/12/2021 8:54 ?? Pathologist Performed at: ??-[facility] Dept. of Pathology, [place], [place] ?Surgical Pathology DIAGNOSIS A) Left upper lobe, wedge excision: - Squamous cell carcinoma. ?? (See SYNOPTIC REPORT) ? (see Discussion.) B) Left upper lobectomy: - Squamous cell carcinoma. ?? (See SYNOPTIC REPORT) - Nine lymph node, ??negative for malignancy. (0/9) C) AP window lymph node, excision: - One lymph node, ??negative for malignancy. (0/1) Electronically signed by: ?MD Stephan, Dov Soriano Verified: ??04/09/2021 11:33 ??Pathologist Performed at: ??-[facility] Dept. of Pathology, [place], [place] SYNOPTIC Specimen ? Procedure: ??Lobectomy ? Specimen Laterality: ??Left Tumor ? Tumor Focality: ??Single focus ? Tumor Site: ??Upper lobe of lung ? Tumor Size ?Total Tumor Size (size of entire tumor): ??Cannot be determined - Tumor was ? received in two specimens. The largest single diameter measurement is 2.6 ? cm ? Histologic Type: ??Invasive squamous cell carcinoma, non-keratinizing . SYNOPTIC ?Histologic Type Comment: ??With extensive obscuring tumor-associated ? chronic inflammation. ? Histologic Grade: ??G3, poorly differentiated ? Spread Through Air Spaces (PALMA): ??Not identified ? Visceral Pleura Invasion: ??Not identified ? Direct Invasion of Adjacent Structures: ??Not applicable (no adjacent ?structures present) ? Treatment Effect: ??No known presurgical therapy ? Lymphovascular Invasion: ??Not identified Margins ? Margin Status for Invasive Carcinoma: ??All margins negative for invasive ?carcinoma ?Closest Margin(s) to Invasive Carcinoma: ??Parenchymal ? Margin Status for Non-Invasive Tumor: ??All margins negative for non-invasive ?tumor Regional Lymph Nodes ? Lymph Node(s) from Prior Procedures: ??Not included ? Regional Lymph Node Status: ??All regional lymph nodes negative for tumor ? Number of Lymph Nodes Examined: ??10 ?Katty Site(s) Examined: ??5: Subaortic / aortopulmonary (AP) / AP window; ?Left - Hilar nodes from left upper lobectomy specimen, stations not ? specified Pathologic Stage Classification (pTNM, AJCC 8th Edition) ? pT Category: ??pT1c ? pN Category: ??pN0 Comments ? Rare well-formed mucin droplets are seen within carcinoma. These foci are ?favored to represent entrapped grand traverse mucin cells; however, the possibility ?of focal glandular carcinoma differentiation cannot be entirely excluded. Tumor Block(s): ??B7 Normal Block(s): ??C1 [facility] January 2021 Release DISCUSSION Tumor somatic mutation testing and PD-L1 IHC testing have been ordered and will be reported separately. ADDITIONAL STUDIES Whole slide scan: personal banking representative slide(s) EVG stains were evaluated for Blocks B6 and B7. Mucicarmine stains were evaluated for Blocks B7 and B9 Immunohistochemistry Studies: Formalin-fixed, paraffin-embedded tissue sections are [...] criteria and other diagnostic tests. Block ? Antibody/stain ?Result (Positive/Negative) B5 ? TTF1 Dako ?Negative B5 ? p40 ?Positive B5 ? [id number] ? Positive B6 ? [id number] ? Positive B8 ? p40 ?Positive B8 ? TTF1 Dako ?Negative B8 ? Synaptophysin ?Negative B7 ? p40 ?Positive . ADDITIONAL STUDIES B7 ? TTF1 Dako ?Negative SPECIMEN(S) SUBMITTED A - left upper lobe wedge, excision (1) ? for frozen section B - left upper lobectomy, resection (1) C - AP Window lymph node, excision (1) CLINICAL INFORMATION Left upper lobe lung mass, fragment of tumor marked with stitch SPECIMEN PROCESSING A - Labeled/Fixative: Left upper lobe wedge, fresh for frozen section. Quantity/Size: ??Single, 10 x 2 x 2 cm. Tissue Description: Previously disrupted, wedge resection of lung. Pleural Surface: ??Glistening, purple-red. LESION ??Description: Ill-defined nodule. ??Size: 0.7 x 0.5 x 0.5 cm. ??Color: Veras-white. ??Consistency: Firm. ??Location: At area of prior disruption (marked by suture along staple line). ??Closest parenchymal margin: ??0.1 cm to staple line. Parenchyma: Spongy, pink-red. Sections/Processing: The following tissue is submitted for frozen section: FS 1-lesion. [employer] sections in 3 cassettes as follows: ?A1: ??FS1 frozen section remnant/lesion ?A2: ??Closest staple line (including possible residual lesion) ?A3: ??[employer] lung parenchyma adjacent to lesion B - Labeled/Fixative: Left upper lobectomy, fresh. Qty/Size/Weight: ??Single, 23 x 10.5 x 3.5 cm, 274 g. SPECIMEN DESCRIPTION Resection Specimen: Focally disrupted, left, Completion upper lobectomy. Pleural Surface: ??Glistening, purple-red and remarkable for a 4.5 x 1.8 cm area of friable pleural disruption along the apical posterior segment adjacent to the prior wedge staple line. There is a 12.5 cm in length staple line traversing the medial aspect of the specimen. LESION ??Description: Ill-defined friable mass ??Size: 2.6 x 2.0 x 2.0 cm ??Color: Serrato-white ??Consistency: firm to friable ??Location: Peripheral, Apical posterior segment ??Distance to bronchial Margin: 5 cm ??Parenchymal margin: 1.8 cm ??Pleura: Indeterminate grossly Parenchyma: Spongy, red-brown without additional lesion. Lymph Nodes: Multiple, up to 1.5 cm, lobar, peribronchial. Sections/Processing: The area of friable pleural disruption is inked blue [employer] sections in 14 cassettes as follows: ?B1: ??Bronchial margin, en face ?B2: ??Vascular margins, en face ?B3: ??Parenchymal staple margin ?B4: ??Prior wedge staple line ?B5-B7: ??Mass in relation to disrupted pleura (inked blue) ?B8-B9: ??Mass with adjacent uninvolved lung parenchyma . SPECIMEN PROCESSING ?B10: ??[employer] uninvolved lung parenchyma ?B11: ??Single intact lobar lymph node ?B12: ??2 intact lobar lymph nodes ?B13: ??2 intact peribronchial lymph nodes ?B14: ??2 intact candidate peribronchial lymph nodes C - Labeled/Fixative: AP window lymph node, fresh. Quantity/Size: Single, 1.0 x 0.7 x 0.4 cm. Tissue Description: Anthracotic soft tissue fragment. Sections/Processing: Bisected and entirely submitted in 1 cassette labeled C1. ??ajw ?Frozen Section FROZEN SECTION DIAGNOSIS AFS - Left upper lobe wedge, excision (1) ?for frozen section Positive for non-small cell carcinoma. 03/29/21 13:48 Electronically signed by: ?Regino FLORES, Malia Swann Verified: ??03/29/2021 13:49 ??Pathologist Performed at: ??-[facility] Dept. of Pathology, [place], [place] This intraoperative consultation should be interpreted as a preliminary diagnosis pending review of the entire specimen and special studies, if any. A final Surgical Pathology report will follow this preliminary Frozen Section report(s). 04/12/2021 8:54 AM EST [facility] LYMPH NODE SPECIMEN / Unknown 03/29/2021 1:18 PM EST 03/29/2021 1:18 PM EST LUNG STRUCTURE / Unknown 03/29/2021 1:18 PM EST 03/29/2021 1:18 PM EST LYMPH NODE SPECIMEN / Unknown 03/29/2021 1:18 PM EST 03/29/2021 1:18 PM EST Gilmer Foster MD PATHOLOGY/CYTOLO GY ORDERABLES [facility] [place] [address] * Specimen to Pathology (03/29/2021 1:18 PM EST) AP Specimen 03/29/2021 1:18 PM EST 03/29/2021 1:18 PM EST Narrative [facility] - 03/29/2021 1:18 PM EST Specimen requisition ordered. ??Separate Pathology report to follow Gilmer Foster MD PATHOLOGY/CYTOLO GY ORDERABLES [facility] [place] [address] * POCT Glucose (03/29/2021 12:02 PM EST) Glucose, POC 89 65 - 199 mg/dL [facility] Comment: Supplemental ranges: <140 mg/dL before meals <180 mg/dL all other times of the day Blood 03/29/2021 12:0 2 PM EST 03/29/2021 12:02 PM EST Gilmer Foster MD POINT OF CARE TE ST ORDERABLES [facility] [place] [address] documented in this encounter Visit Diagnoses Diagnosis Mass of upper lobe of left lung S/P lobectomy of lung Other postprocedural status Mass of upper lobe of left lung S/P lobectomy of lung Other postprocedural status documented in this encounter Admitting Diagnoses Diagnosis Mass of upper lobe of left lung documented in this encounter Administered Medications Inactive Administered Medications - up to 3 most recent administrations Medication Order MAR Action Action Date Dose Rate Site acetaminophen (Tylenol) tablet 1,000 mg 1,000 mg, Oral, ONCE, 1 dose, On Sat03/29/21 at 1215, Administer with SIP of H2O only., Day of Surgery (Day of Procedure), Routine Given 03/29/2021 12:03 PM EST 1,000 mg acetaminophen (Tylenol) tablet 1,000 mg 1,000 mg, Oral, EVERY 6 HOURS SCHEDULED, First dose on Sat03/29/21 at 1900, Until Discontinued, Maximum dose of acetaminophen is 4000 mg from all sources in 24 hours. When ordered for pain, acetaminophen should be given even when other ordered pain medications are indicated., Recovery (Recovery-Hospital Unit), Routine Given 04/01/2021 12:00 PM EST 1,000 mg Given 04/01/2021 5:39 AM EST 1,000 mg Given 04/01/2021 12:37 AM EST 1,000 mg albuteroL (Proventil) nebulizer solution 2.5 mg 2.5 mg, Nebulization, EVERY 6 HOURS, First dose on Sat03/29/21 at 2130, Until Discontinued, Routine Given 03/31/2021 10:05 PM EST 2.5 mg Given 03/31/2021 2:33 PM EST 2.5 mg Given 03/31/2021 9:07 AM EST 2.5 mg AMIOdarone (Cordarone) 50 mg/mL injection 1 dose, Starting on Sat03/29/21 at 1726, Until Sat03/29/21 at 1728, Debbie Pride: cabinet override Given 03/29/2021 5:28 PM EST 300 mg AMIOdarone (Paceron) tablet 400 mg 400 mg, Oral, EVERY 8 HOURS, 9 doses, First dose on Sat03/30/21 at 0130, Last dose on 04/01/21 at 1730, Routine Given 04/01/2021 9:02 AM EST 400 mg Given 04/01/2021 12:37 AM EST 400 mg Given 03/31/2021 5:53 PM EST 400 mg aspirin EC tablet 81 mg 81 mg, Oral, DAILY, First dose on Sat03/30/21 at 0900, Until Discontinued, Routine Given 04/01/2021 9:00 AM EST 81 mg Given 03/31/2021 9:08 AM EST 81 mg Given 03/30/2021 9:14 AM EST 81 mg budesonide-formoteroL (Symbicort) 160-4.5 mcg/actuation inhaler 2 Inhalation 2 .Inhalation , Inhalation, 2 TIMES DAILY (RESPIRATORY THERAPY), First dose on Sat03/30/21 at 0600, Until Discontinued Given 04/01/2021 5:43 AM EST 2 .Inhalation Given 03/31/2021 5:53 PM EST 2 .Inhalation Given 03/31/2021 6:33 AM EST 2 .Inhalation buPROPion SR (Wellbutrin SR) tablet 150 mg 150 mg, Oral, DAILY, First dose on Sat03/30/21 at 0900, Until Discontinued, DO NOT CRUSH OR OPEN, Routine Given 04/01/2021 9:00 AM EST 150 mg Given 03/31/2021 9:07 AM EST 150 mg Given 03/30/2021 9:14 AM EST 150 mg docusate sodium (Colace) capsule 100 mg 100 mg, Oral, 3 TIMES DAILY, First dose on Sat03/29/21 at 2130, Until Discontinued, Routine Given 04/01/2021 9:00 AM EST 100 mg Given 03/31/2021 8:20 PM EST 100 mg Given 03/31/2021 9:08 AM EST 100 mg heparin (porcine) (5,000 units/1 mL) subcutaneous injection 5,000 Units 5,000 Units, Subcutaneous, HAMPER [employer] MACHINE TO O.R., 1 dose, On Sat03/29/21 at 1215, Please administer in same day prior to procedure Thank you, Day of Surgery (Day of Procedure), STAT Given 03/29/2021 12:04 PM EST 5,000 Units heparin (porcine) (5,000 units/1 mL) subcutaneous injection 5,000 Units 5,000 Units, Subcutaneous, EVERY 8 HOURS SCHEDULED, First dose on Sat03/29/21 at 2200, Until Discontinued, Routine Given 04/01/2021 5:41 AM EST 5,000 Units Given 03/31/2021 10:05 PM EST 5,000 Units Given 03/31/2021 2:34 PM EST 5,000 Units ketorolac (Toradol) (30 mg/mL) injection 15 mg 15 mg, Intravenous, EVERY 8 HOURS PRN, Starting on Sat03/29/21 at 2041, Until 04/01/21 at 1725, Pain, Routine Given 04/01/2021 5:39 AM EST 15 mg Given 03/31/2021 10:09 PM EST 15 mg Given 03/30/2021 8:53 PM EST 15 mg lactated ringers infusion 1,000 mL, at 100 mL/hr, Intravenous, CONTINUOUS, Starting on Sat03/29/21 at 1215, Until Sat03/29/21 at 1955, Day of Surgery (Day of Procedure) New Bag 03/29/2021 6:56 PM EST 1,000 mLs 100 mL/hr lactated ringers infusion 50 mL/hr, Intravenous, CONTINUOUS, Starting on Sat03/29/21 at 1915, Until Stephanie 03/30/21 at 0751, Recovery (Recovery-Hospital Unit) Rate/Dose Verify 03/30/2021 5:00 AM EST 50 mL/hr 50 mL/hr Rate/Dose Verify 03/30/2021 4:00 AM EST 50 mL/hr 50 mL/h r Rate/Dose Verify 03/30/2021 3:00 AM EST 50 mL/hr 50 mL/h r lisinopriL (Zestril) tablet 5 mg 5 mg, Oral, DAILY, First dose on Stephanie 03/30/21 at 1015, Until Discontinued, Routine Given 04/01/2021 9:01 AM EST 5 mg Given 03/31/2021 9:08 AM EST 5 mg Given 03/30/2021 11:39 AM EST 5 mg magnesium sulfate 2 g in sterile water 50 mL infusion 2 g, Intravenous, ONCE, 1 dose, On Sat03/30/21 at 0800, Administer over 120 Minutes New Bag 03/30/2021 11:36 AM EST 2 g 25 mL/hr mometasone (Asmanex) aerosol 2 puff 2 puff (440 mcg), Inhalation, 2 TIMES DAILY, First dose on Sat03/30/21 at 1030, Until Discontinued, Routine, Does the patient have the inspiratory effort to support a dry powder inhaler? Yes Given 04/01/2021 8:59 AM EST 2 puffs Given 03/31/2021 8:20 PM EST 2 puffs Given 03/31/2021 9:07 AM EST 2 puffs nicotine (Nicoderm CQ) 21 mg/24 hr patch 21 mg 21 mg (1 patch), Transdermal, DAILY, First dose on Stephanie 03/30/21 at 0900, Until Discontinued, Apply new patch to nonhairy, clean, dry skin on the upper body or upper outer arm; each patch should be applied to a different site , Routine Patch Applied 04/01/2021 9:01 AM EST 21 mg 04- Shoulder (Right) Patch Applied 03/31/2021 9:08 AM EST 21 mg 10- Arm Upper (Right) Patch Applied 03/30/2021 9:18 AM EST 21 mg 03- Shoulder (Left) nicotine (NICODERM CQ) 21 mg/24 hr patch Patch Removal Transdermal, DAILY, First dose on Sat03/30/21 at 0900, Until Discontinued, Remove nicotine 21 mg/24 hr patch nicotine (NICODERM CQ) 21 mg/24 hr patch Patch Verification Transdermal, 2 TIMES DAILY, First dose on Sat03/30/21 at 1015, Until Discontinued, Verify nicotine 21 mg/24 hr patch oxyCODONE (Roxicodone) tablet 5 mg 5 mg, Oral, EVERY 4 HOURS PRN, Starting on Sat03/29/21 at 1703, Until Sat04/01/21 at 1725, Pain, For pain >4/10 not controlled by tylenol/toradol, Routine Given 03/30/2021 8:53 PM EST 5 mg Given 03/30/2021 9:12 AM EST 5 mg Given 03/29/2021 9:26 PM EST 5 mg pantoprazole EC (Protonix) tablet 40 mg 40 mg, Oral, DAILY, First dose on Sat03/30/21 at 0900, Until Discontinued, DO NOT CRUSH OR OPEN Given 04/01/2021 9:00 AM EST 40 mg Given 03/31/2021 9:08 AM EST 40 mg Given 03/30/2021 9:14 AM EST 40 mg senna (Senokot) tablet 17.2 mg 17.2 mg, Oral, EVERY EVENING, First dose on Sat03/30/21 at 1700, Until Discontinued, Routine Given 03/30/2021 5:11 PM EST 17.2 mg sodium chloride 0.9 % (flush) (BD PosiFlush Normal Saline 0.9) flush 5 mL 5 mL, Intravenous, 2 TIMES DAILY, First dose on Sat03/29/21 at 2100, Until Discontinued, Recovery (Recovery-Hospital Unit), Routine Given 04/01/2021 9:03 AM EST 5 mLs Given 03/31/2021 8:20 PM EST 5 mLs Given 03/31/2021 9:16 AM EST 5 mLs tamsulosin (Flomax) capsule 0.4 mg 0.4 mg, Oral, DAILY, First dose on Sat03/30/21 at 0900, Until Discontinued, DO NOT CRUSH OR OPEN, Routine Given 04/01/2021 9:01 AM EST 0.4 mg Given 03/31/2021 9:08 AM EST 0.4 mg Given 03/30/2021 9:15 AM EST 0.4 mg documented in this encounter Active and Recently Administered Medications Times are shown in EST. Scheduled Medication Order 03/30/2021 03/31/2021 04/01/2021 acetaminophen (Tylenol) tablet 1,000 mg 1,000 mg, Oral, EVERY 6 HOURS SCHEDULED, First dose on Sat03/29/21 at 1900, Until Discontinued, Maximum dose of acetaminophen is 4000 mg from all sources in 24 hours. When ordered for pain, acetaminophen should be given even when other ordered pain medications are indicated., Recovery (Recovery-Hospital Unit), Routine 0034 (Given - Provider: Vanessa Salcedo RN)0618 (Given - Provider: Vanessa Salcedo RN)1139 (Given - Provider: Debbie Pride RN)1710 (Given - Provider: Debbie Pride RN) 0003 (Given - Provider: Gabi Cotto RN)0633 (Given - Provider: Gabi Cotto RN)1153 (Given - Provider: Olamide Bucio RN)1753 (Given - Provider: Olamide Bucio RN) 0037 (Given - Provider: Leonora Kinglsey RN)0539 (Given - Provider: Leonora Kingsley RN)1200 (Given - Provider: Malia Paredes RN) albuteroL (Proventil) nebulizer solution 2.5 mg 2.5 mg, Nebulization, EVERY 6 HOURS, First dose on Sat03/29/21 at 2130, Until Discontinued, Routine 0242 (Not Given - Provider: Vanessa Salcedo RN - Reason: See comment - Comment: patient stated he takes this only in morning, patient verbalized understanding to call if he felt like he needed breathing treatment prior to morning.)0919 (Given - Provider: Debbie Pride RN)1441 (Given - Provider: Debbie Pride RN)2130 (Not Given - Provider: Gabi Cotto RN - Reason: Patient/family refused) 0422 (Given - Provider: Gabi Cotto RN)0907 (Given - Provider: Olamide Bucio RN)1433 (Given - Provider: Olamide Bucio RN)2205 (Given - Provider: Leonora Kingsley RN) 0330 (Not Given - Provider: Leonora Kingsley RN - Reason: Patient/family refused)0930 (Due) AMIOdarone (Paceron) tablet 400 mg(Linked Group 1) 400 mg, Oral, EVERY 8 HOURS, 9 doses, First dose on Stephanie 03/30/21 at 0130, Last dose on 04/01/21 at 1730, Routine 0035 (Given - Provider: Vanessa Salcedo RN)0912 (Given - Provider: Debbie Pride RN)1710 (Given - Provider: Debbie Pride RN) 0144 (Given - Provider: Gabi Cotto RN)0911 (Given - Provider: Olamide Bucio RN)1753 (Given - Provider: Olamide Bucio RN) 0037 (Given - Provider: Leonora Kingsley, CHRISTINA)0902 (Given - Provider: Malia Paredes, CHRISTINA) aspirin EC tablet 81 mg 81 mg, Oral, DAILY, First dose on Sat03/30/21 at 0900, Until Discontinued, Routine 0914 (Given - Provider: Debbie Pride RN) 09 (Given - Provider: Olamide Bucio RN) 0900 (Given - Provider: Malia Paredes, CHRISTINA) budesonide-formoteroL (Symbicort) 160-4.5 mcg/actuation inhaler 2 Inhalation 2 .Inhalation , Inhalation, 2 TIMES DAILY (RESPIRATORY THERAPY), First dose on Sat03/30/21 at 0600, Until Discontinued 0600 (Not Given - Provider: Vanessa Salcedo RN - Reason: Patient/family refused)1711 (Given - Provider: Debbie Pride RN) 0633 (Given - Provider: Gabi Cotto RN)1753 (Given - Provider: Olamide Bucio RN) 0543 (Given - Provider: Leonora Kingsley, CHRISTINA) buPROPion SR (Wellbutrin SR) tablet 150 mg 150 mg, Oral, DAILY, First dose on Sat03/30/21 at 0900, Until Discontinued, DO NOT CRUSH OR OPEN, Routine 0914 (Given - Provider: Debbie Pride RN) 0907 (Given - Provider: Olamide Bucio RN) 0900 (Given - Provider: Malia Paredes, CHRISTINA) docusate sodium (Colace) capsule 100 mg 100 mg, Oral, 3 TIMES DAILY, First dose on Sat03/29/21 at 2130, Until Discontinued, Routine 0914 (Given - Provider: Debbie Pride RN)1440 (Given - Provider: Debbie Pride RN)205 (Given - Provider: Gabi Cotto RN) 09 (Given - Provider: Olamide Bucio RN)1500 (Not Given - Provider: Olamide Bucio RN - Reason: Patient/family refused)2019 (Given - Provider: Leonora Kingsley, CHRISTINA) 0900 (Given - Provider: Malia Paredes, CHRISTINA)1500 (Due) heparin (porcine) (5,000 units/1 mL) subcutaneous injection 5,000 Units 5,000 Units, Subcutaneous, EVERY 8 HOURS SCHEDULED, First dose on Sat03/29/21 at 2200, Until Discontinued, Routine 0618 (Given - Provider: Vanessa Salcedo RN)1350 (Given - Provider: Debbie Pride, CHRISTINA)2358 (Given - Provider: Gabi Cotto, CHRISTINA) 0907 (Given - Provider: Olamide Bucio RN)1434 (Given - Provider: Olamide Bucio RN)2205 (Given - Provider: Leonora Kingsley, CHRISTINA) 0541 (Given - Provider: Leonora Kingsley, CHRISTINA)1400 (Due) lisinopriL (Zestril) tablet 5 mg 5 mg, Oral, DAILY, First dose on Sat03/30/21 at 1015, Until Discontinued, Routine 1139 (Given - Provider: Debbie Pride RN) 0908 (Given - Provider: Olamide Bucio RN) 0901 (Given - Provider: Malia Paredes, CHRISTINA) magnesium sulfate 2 g in sterile water 50 mL infusion (COMPLETED) 2 g, Intravenous, ONCE, 1 dose, On Sat03/30/21 at 0800, Administer over 120 Minutes 1136 (New Bag - Provider: Debbie Pride RN)1336 (Stopped - Provider: Debbie Pride RN) mometasone (Asmanex) aerosol 2 puff 2 puff (440 mcg), Inhalation, 2 TIMES DAILY, First dose on Sat03/30/21 at 1030, Until Discontinued, Routine, Does the patient have the inspiratory effort to support a dry powder inhaler? Yes 1140 (Given - Provider: Debbie Pride RN)2051 (Given - Provider: Gabi Cotto, CHRISTINA) 0907 (Given - Provider: Olamide Bucio RN)2020 (Given - Provider: Leonora Kingsley RN) 0859 (Given - Provider: Malia Paredes RN) nicotine (Nicoderm CQ) 21 mg/24 hr patch 21 mg(Linked Group 2) 21 mg (1 patch), Transdermal, DAILY, First dose on Sat03/30/21 at 0900, Until Discontinued, Apply new patch to nonhairy, clean, dry skin on the upper body or upper outer arm; each patch should be applied to a different site , Routine 917 (Patch Applied - Provider: Debbie Pride RN) 09 (Patch Applied - Provider: Olamide Bucio RN) 900 (Patch Applied - Provider: Malia Paredes RN) nicotine (NICODERM CQ) 21 mg/24 hr patch Patch Removal(Linked Group 2) Transdermal, DAILY, First dose on Sat03/30/21 at 0900, Until Discontinued, Remove nicotine 21 mg/24 hr patch 0900 (Patch Removed - Provider: Debbie Pride RN - Comment: removed earlier by pt per pt) 910 (Patch Removed - Provider: Olamide Bucio RN) 09 (Patch Removed - Provider: Malia Pardees RN) nicotine (NICODERM CQ) 21 mg/24 hr patch Patch Verification(Linked Group 2) Transdermal, 2 TIMES DAILY, First dose on Sat03/30/21 at 1015, Until Discontinued, Verify nicotine 21 mg/24 hr patch 1015 (Patch (dose and location) verified - Provider: Debbie Pride RN)2051 (Patch (dose and location) verified - Provider: Gabi Cotto RN) 0900 (Patch (dose and location) verified - Provider: Olamide Bucio RN)2100 (Patch (dose and location) verified - Provider: Leonora Kingsley RN) 0900 (Due) pantoprazole EC (Protonix) tablet 40 mg 40 mg, Oral, DAILY, First dose on Sat03/30/21 at 0900, Until Discontinued, DO NOT CRUSH OR OPEN 0914 (Given - Provider: Debbie Pride RN) 0908 (Given - Provider: Olamide Bucio RN) 0900 (Given - Provider: Malia Paredes RN) senna (Senokot) tablet 17.2 mg 17.2 mg, Oral, EVERY EVENING, First dose on Stephanie 03/30/21 at 1700, Until Discontinued, Routine 1711 (Given - Provider: Debbie Pride RN) 1700 (Not Given - Provider: Olamide Bucio, CHRISTINA - Reason: Patient/family refused) sodium chloride 0.9 % (flush) (BD PosiFlush Normal Saline 0.9) flush 5 mL 5 mL, Intravenous, 2 TIMES DAILY, First dose on Sat03/29/21 at 2100, Until Discontinued, Recovery (Recovery-Hospital Unit), Routine 0900 (Given - Provider: Debbie Pride, CHRISTINA)2051 (Given - Provider: Gabi Cotto, CHRISTINA) 0916 (Given - Provider: Olamide Bucio, CHRISTINA)2019 (Given - Provider: Leonora Kingsley, CHRISTINA) 09 (Given - Provider: Malia Paredes, CHRISTINA) tamsulosin (Flomax) capsule 0.4 mg 0.4 mg, Oral, DAILY, First dose on Stephanie 03/30/21 at 0900, Until Discontinued, DO NOT CRUSH OR OPEN, Routine 0915 (Given - Provider: Debbie Pride, CHRISTINA) 0908 (Given - Provider: Olamide Bucio, CHRISTINA) 09 (Given - Provider: Malia Paredes, CHRISTINA) Continuous Medication Order 03/30/2021 03/31/2021 04/01/2021 lactated ringers infusion (CANCELED) 50 mL/hr, Intravenous, CONTINUOUS, Starting on Sat03/29/21 at 1915, Until Sat03/30/21 at 0751, Recovery (Recovery-Hospital Unit) 0000 (Rate/Dose Verify - Provider: Vanessa Salcedo, CHRISTINA)0100 (Rate/Dose Verify - Provider: Vanessa Salcedo, CHRISTINA)0200 (Rate/Dose Verify - Provider: Vanessa Salcedo, CHRISTINA)0300 (Rate/Dose Verify - Provider: Vanessa Salcedo, RN)0400 (Rate/Dose Verify - Provider: Vanessa Salcedo, CHRISTINA)0500 (Rate/Dose Verify - Provider: Vanessa Salcedo, CHRISTINA)0751 (Stopped - Provider: Debbie Pride RN) PRN Medication Order 03/30/2021 03/31/2021 04/01/2021 ketorolac (Toradol) (30 mg/mL) injection 15 mg 15 mg, Intravenous, EVERY 8 HOURS PRN, Starting on Sat03/29/21 at 2041, Until 04/01/21 at 1725, Pain, Routine 0915 (Given - Provider: Debbie Pride RN)2052 (Given - Provider: Gabi Cotto RN) 2208 (Given - Provider: Leonora Kingsley, CHRISTINA) 0539 (Given - Provider: Leonora Kingsley RN) lidocaine (Xylocaine) 1% (10 mg/mL) injection 3 mg 3 mg (0.3 mL), Subcutaneous, ONCE PRN, 1 dose, Starting on Sat03/29/21 at 1845, Until 04/01/21 at 1725, for discomfort with PIV insertion, Recovery (Recovery-Hospital Unit), Routine ondansetron (pf) (Zofran) (2 mg/mL) injection 4 mg 4 mg, Intravenous, EVERY 8 HOURS PRN, Starting on Sat03/29/21 at 2041, Until 04/01/21 at 1725, Nausea oxyCODONE (Roxicodone) tablet 5 mg 5 mg, Oral, EVERY 4 HOURS PRN, Starting on Sat03/29/21 at 1703, Until 04/01/21 at 1725, Pain, For pain >4/10 not controlled by tylenol/toradol, Routine 0912 (Given - Provider: Debbie Pride RN)2052 (Given - Provider: Gabi Cotto RN) sodium chloride 0.9 % (flush) (BD PosiFlush Normal Saline 0.9) flush 5-20 mL 5-20 mL, Intravenous, EVERY 1 MIN PRN, Starting on Sat03/29/21 at 1845, Until 04/01/21 at 1725, flush, Flush pertains to all indwelling lines. Flush per protocol found in the job aid using the link provided on this medication record., Recovery (Recovery-Hospital Unit), Routine Linked Groups Order Group 1: AMIOdarone (Cordarone) 300 mg in dextrose 5% 106 mL bolus infusion () 300 mg, Intravenous, at 106 mL/hr, Administer over 1 Hours, ONCE, 1 dose, On Sat03/29/21 at 1730, Administer over 1 hour., Routine Followed by AMIOdarone (Paceron) tablet 400 mgJump to med 400 mg, Oral, EVERY 8 HOURS, 9 doses, First dose on Sat03/30/21 at 0130, Last dose on Sat04/01/21 at 1730, Routine Group 2: nicotine (Nicoderm CQ) 21 mg/24 hr patch 21 mgJump to med 21 mg (1 patch), Transdermal, DAILY, First dose on Sat03/30/21 at 0900, Until Discontinued, Apply new patch to nonhairy, clean, dry skin on the upper body or upper outer arm; each patch should be applied to a different site , Routine And nicotine (NICODERM CQ) 21 mg/24 hr patch Patch VerificationJump to med Transdermal, 2 TIMES DAILY, First dose on Sat03/30/21 at 1015, Until Discontinued, Verify nicotine 21 mg/24 hr patch And nicotine (NICODERM CQ) 21 mg/24 hr patch Patch RemovalJump to med Transdermal, DAILY, First dose on Sat03/30/21 at 0900, Until Discontinued, Remove nicotine 21 mg/24 hr patch documented in this encounter Care Teams Faculty Member Relationship Specialty Start Date End Date Tami Olivia [address] [place] [address] PCP - General Family Medicine 12/30/20 documented as of this encounter
--- OUTSIDE RECORDS SUMMARY | 2023-12-11 17:36 | XMS_ITS | Encounter Summary ---
Author Organization [facility] Address [facility] [place] [address] Care Team Providers Care Grinder Mill Operator Name Role Phone Tami Olivia Primary Care Provider [phone] Encounter Details Date Type Department Care Team (Late st Contact Info) Description 04/04/2021 Telephone Thoracic Surgery at [facility] [place] [phone] Megan Reza RN Social History Tobacco Use [...] Telephone Encounter - Megan Reza RN - 04/04/2021 12:25 PM ESTSummary: post op call Thoracic Surgery Nursing Post-operative Follow up: Hx: s/p Left VATS LULobectomy on 03/29/2021, discharged home on 04/01/2021. POD#: 6 General statement: I am doing great since I have been home and I slept really well last night. My voice is the only thing that is slowly getting better but it does not hurt to talk. He is audibly hoarse, no high pitch noted and no swelling or subcutaneous emphysema noted. Pain: taking extra strength tylenol 1000 mg every 4 hours - reviewed that this timeframe is too close together, reviewed that he can take this extra strength tylenol 1000 mg with the ibuprofen 600 mgevery 6 hours but no sooner. He verbalized understanding and read back instructions. GI: appetite: good Diet: regular Hydration: good Voiding: without any difficulty BM: without any difficulty - LBM daily - What is the Bowel regimen: not taking any medications I have not had any problems - reviewed that will not go longer than 2 days between BM's, verbalized understanding and read back instructions. Respiratory: using IS as directed, pulling 1500 SOB: denies Difficulty breathing: denies Coughing with or without sputum: productive cough with some clear phlegm, occasional darker sputum Activity: up and about without any difficulty, denies any dizziness or lightheadedness Integumentary: Incisions without any redness, swelling, drainage, fevers, chills, sweats, site hot to touch, bruising and bleeding. Dressings not removed reviewed to remove these dressings today. Shower, wash with soap and water rinse well and pat dry. Keep open to air, unless drainage noted. He verbalized understanding. Plan: RTC on 04/17/2021 CXR 04/17/2021 at 10:45 am in lending manager area [address]L Dr. 04/17/2021 at 11:15 am in lending manager area 3K Rajan Marquez is aware of appointments and [...] on filedocumented in this encounter Care Teams Grinder Mill Operator Relationship Specialty Start Date End Date Tami Olivia [address] [place] [address] PCP - General Family Medicine 12/30/20 documented as of this encounter
--- OUTSIDE RECORDS SUMMARY | 2023-12-11 17:36 | XMS_ITS | Encounter Summary ---
Author Organization [facility] Address [facility] [place] [address] Care Team Providers Care Precinct Commanding Officer Name Role Phone Tami Olivia Primary Care Provider [phone] Reason for Visit * Reason Onset Date Comments Results 03/27/2021 Negative Covid f or Pre-op Encounter Details Date Type Department Care Team (Late st Contact Info) Description 03/27/2021 Telephone Public Health at [facility] [place] [phone] Gabriela Milligan RN Results (Negative Covid for Pre-op) Social History Tobacco Use Types Packs/Day Years Used Date Smoking Tobacco: Former Cigarettes 2 50 1 04/17/1970 - 02/14/2021 Smokeless Tobacco: Never Comments:1 ppd for the past year Sex and Gender Information Value Date Recorded Sex Assigned at Not on file Gender Identity Not on file Sexual Orientation Not on file documented as of this encounter Miscellaneous Notes * Telephone Encounter - Gabriela Milligan RN - 03/27/2021 5:45 PM EST Called patient to advise of negative Covid 19 test results. Testing was requested for asymptomatic reasons. All questions from patient have been addressed. documented in this encounter Plan of Treatment Scheduled Procedures Name Priority Associated Diagnoses Date/Ti me ELECTROPHYSIOLOGY PROCEDURE Persistent atrial fibrillation CARDIOVERSION-ELECTIVE (WRVU 2) persistent atrial fibrillation TRANSESOPHAGEAL ECHOCARDIOGR AM (WRVU 2.3) persistent atrial fibrillation documented as of this encounter Visit Diagnoses Not on filedocumented in this encounter Care Teams Precinct Commanding Officer Relationship Specialty Start Date End Date Tami Olivia [address] [place] [address] PCP - General Family Medicine 12/30/20 documented as of this encounter
--- OUTSIDE RECORDS SUMMARY | 2023-12-11 17:36 | XMS_ITS | Encounter Summary ---
Author Organization [facility] Address [facility] [place] [address] Care Team Providers Care Generator Worker Name Role Phone SudhakarJacksonTami Primary Care Provider Encounter Details Date Type Department Care Team (Latest Contact Info) Description 04/17/2021 10:34 AM EST - 04/17/2021 11:59 PM [facility] Hospital Encounter XRay at [address] [place] [address] S/P lobectomy of lung Discharge Disposition: Home [...] Take 1 tablet by mouth daily. 11/01/2014 acetaminophen (Tylenol) 500 mg Tablet Take 2 tablets by mouth every 6 hours. 30 tablet 1 04/01/2021 10/30/2021 lisinopriL (Zestril) 10 mg Tablet Take 10 [...] Comments XR CHEST PA AND LATERAL Routine 04/17/2021 10:48 AM EST S/P lobectomy of lung documented in this encounter [...] who have questions please contact the health adult caregiver that requested your imaging first. ? Narrative [...] patients who have questions please contactthe health adult caregiver that requested your imaging first. Gilmer Gutiérrez MD IMG DX ORDERABLE S documented in this encounter Visit Diagnoses Diagnosis S/P lobectomy of lung Other postprocedural status documented in this encounter Care Teams Generator Worker Relationship Specialty Start Date End Date Tami Olivia [address] [place] [address] PCP - General Family Medicine 12/30/20 documented as of this encounter
--- OUTSIDE RECORDS SUMMARY | 2023-12-11 17:36 | XMS_ITS | Encounter Summary ---
Author Organization [facility] Address [facility] [place] [address] Care Team Providers Care Geological Aide Name Role Phone Tami Olivia Primary Care Provider [phone] Reason for Visit * Auth/Cert Specialty Diagnoses / Procedures Referred By Bert gautam Referred To Contact Diagnoses Mass of upper lobe of left lung left upper lobe lung mass Procedures PRO THORACOSCOPY SURG LOBECTOMY PRO BRONCHOSCOPY, DIAGNOSTIC @THORACOSCOPY,SURGICAL,W\LOBECTOMY, TOTAL OR SEGMENTAL (WRVU 24.64) BRONCHOSCOPY, DIAGNOSTIC (WRVU 2.78) Referral ID Status Reason Start Date Expiration Date Visits Re quested Visits Authorized [id number] 1 1 Encounter Details Date Type Department Care Team (Late st Contact Info) Description 03/29/2021 12:00 PM EST - 03/29/2021 4:45 PM EST Surgery [place] [address] Gilmer Foster MD [facility] [place] [address] @THORACOSCOPY,SURGICAL ,W\LOBECTOMY,TOTAL OR SEGMENTAL (WRVU 24.64) Social History Tobacco Use Types Packs/Day Years [...] Sign Reading Time Taken Comments Blood Pressure 147/90 03/29/2021 11:46 AM EST Pulse 66 03/29/2021 11:46 AM EST Temperature 37.3 ??C (99.1 ??F) 03/29/2021 11:[address] Respiratory Rate 18 03/29/2021 11:46 AM EST Oxygen Saturation 97% 03/29/2021 4:45 PM EST Inhaled Oxygen Concentration - - Weight 90.3 kg (199 lb) 03/29/2021 11:46 AM EST Height 173.4 cm (5' 8.25) 03/29/2021 11:[address] Body Mass Index 33.62 03/29/2021 8:00 PM EST documented in this encounter Discharge Summaries * Camilo Stevenson PA - 04/01/2021 1:11 PM EST Images from the original note were not included. Department of Thoracic Surgery - Discharge Summary Patient Name: Rajan Marquez Patient Age: 70 y.o. Birthdate: 1950 Admit date: 03/29/2021 Discharge date: 04/01/21 Attending Physician: Gilmer Foster MD Discharge Diagnoses [...] Primary * Renu Tan PA - Physician Construction Rep * Say Mo MD - Resident Procedure: [...] Hospital Course: Rajan Marquez was admitted to [facility] on 03/29/2021 via the Same Day Program. [...] a nurse in the Thoracic Clinic at [phone]. After hours or on weekends or holidays please call: [phone] and ask to speak to the Thoracic [...] the Thoracic Clinic or the Thoracic Surgeon addiction professional after hours. Please take over the counter [...] Expires XR Chest PA & Lateral (Generic) [[id number] Custom] 04/15/2021 10/15/2021 Process Instructions: Scheduling Instructions: Questions: Where will study be performed?: [facility] Radiology Portable exam?: Reason for exam and clinical history: s/p LULobectomy Clinical information / bryan questions for radiologist: Stat read required?: Date of injury if applicable: Requested Time: Provider Contact Information: Primary Care Provider: Tami Olivia [phone] Discharge References/Attachments: Discharge References/Attachments None For questions regarding this document or issues relating to this hospitalization on the Thoracic Surgery Service, please contact Dr. Foster's office at . Signed: STEVE Black 04/01/2021 Thoracic Surgery [facility] CC: PCP: Tami Olivia Referring: Tami Olivia [address] [place] [address] documented in this encounter Discharge Instructions * [...] a nurse in the Thoracic Clinic at [phone]. After hours or on weekends or holidays please call: [phone] and ask to speak to the Thoracic [...] the Thoracic Clinic or the Thoracic Surgeon addiction professional after hours. Please take over the counter [...] Paredes RN - 04/01/2021 9:07 AM EST [facility] Short Stay Unit Discharge Note All [...] PRN's. OOB to bathroom with SBA. * Olamied Bucio RN - 03/31/2021 10:22 AM EST [...] Mustafa PA - 03/31/2021 8:39 AM EST [facility] Department of Thoracic Surgery Inpatient Progress Note Patient Name: Rajan Marquez Patient : 1950 Patient Patient Location: [facility] Attending Surgeon: GILMER FOSTER ID: Rajan Marquez [...] from 03/29/2021 in Short Stay Unit at [facility] Office Visit from 02/17/2021 in Otolaryngology at [facility] Weight 100.3 kilograms, or 221 pounds 1.6 [...] Result Value Ref Range Surgical Pathology Report [id number] Location: OR; OR11; A The signing pathologist has (i) examined the relevant preparation(s) for the specimen(s) and (ii) rendered or confirmed the diagnosis(es). . Frozen Section FROZEN SECTION DIAGNOSIS AFS - Left upper lobe wedge, excision (1) for frozen section Positive for non-small cell carcinoma. 03/29/21 13:48 Electronically signed by: Malia Lacy MD Verified: 03/29/2021 13:49 Pathologist Performed at: -[facility] Dept. of Pathology, [place], [place] This intraoperative consultation should be interpreted [...] STEVE Sethi 03/31/2021 Thoracic Surgery Service Pager [phone] * Debbie Pride RN - 03/30/2021 11:05 [...] outlinedin this evaluation. Time IN / OUT: 3827-5219 Total Minutes, Physical Therapy: 25 (mod complexity eval ) Michaela Butcher, PT Pager: [phone] Physical Therapy Inpatient Rehabilitation Department * Sandra [...] of functional outcome. Sandra Goncalves OTR/L Pager [phone] Occupational Therapy Rehabilitation Department * Yosef Butcher PA - 03/30/2021 9:34 AM EST [facility] Department of Thoracic Surgery Inpatient Progress Note Patient Name: Rajan Marquez Patient : 1950 Patient Patient Location: [address] Attending Surgeon: GILMER FOSTER ID: Rajan [...] from 03/29/2021 in Short Stay Unit at [facility] Office Visit from 02/17/2021 in Otolaryngology at [facility] Weight 100.3 kg (221 lb 1.6 oz) [...] Result Value Ref Range Surgical Pathology Report [id number] Location: OR; OR11; A The signing pathologist has (i) examined the relevant preparation(s) for the specimen(s) and (ii) rendered or confirmed the diagnosis(es). . Frozen Section FROZEN SECTION DIAGNOSIS AFS - Left upper lobe wedge, excision (1) for frozen section Positive for non-small cell carcinoma. 03/29/21 13:48 Electronically signed by: Malia Lacy MD Verified: 03/29/2021 13:49 Pathologist Performed at: -[facility] Dept. of Pathology, [place], [place] This intraoperative consultation should be interpreted [...] OOB. Dispo: full code, floor status STEVE Lezn 03/30/2021 Thoracic Surgery Service Pager [phone] * Loreta Terrell APRN - 03/30/2021 9:19 AM EST [facility] Department of Thoracic Surgery Inpatient Post Op Check Note Patient Name: Rajan Marquez Patient : 1950 Patient Patient Location: [facility] Attending Surgeon: GILMER FOSTER ID: Rajan Marquez [...] from 03/29/2021 in Short Stay Unit at [facility] Office Visit from 02/17/2021 in Otolaryngology at [facility] Weight 100.3 kilograms, or 221 pounds 1.6 [...] Result Value Ref Range Surgical Pathology Report [id number] Location: OR; OR11; A The signing pathologist has (i) examined the relevant preparation(s) for the specimen(s) and (ii) rendered or confirmed the diagnosis(es). . Frozen Section FROZEN SECTION DIAGNOSIS AFS - Left upper lobe wedge, excision (1) for frozen section Positive for non-small cell carcinoma. 03/29/21 13:48 Electronically signed by: Malia Lacy MD Verified: 03/29/2021 13:49 Pathologist Performed at: -[facility] Dept. of Pathology, [place], [place] This intraoperative consultation should be interpreted [...] PPI, senna, colace, zofran PRN Renal/: DC matt, monitor UOP, flomax Heme: SQH ID: n/a Endo: n/a PPx: scds; SQH, Ambulate 4x a day. OOB. PT/OT consult Dispo: full code, floor status Loreta Terrell, BOX TOE STITCHER 03/30/2021 Thoracic Surgery Service Pager [phone] * Vanessa Salcedo RN - 03/29/2021 10:04 PM EST 1999: Received patient from PACU, patient alert and oriented x4, calm and cooperative, respirationseven and easy, reports pain is okay but worsens with deep breaths and movement. Chest tube set to -20mmHg water seal wall suction with air leak 2129: Patient medicated per MAY. 2199: Dr. Rosario at bedside. 699: Report given to Debbie VASQUEZ. * Lacy Rosario MD - 03/29/2021 10:01 PM EST [facility] Department of Thoracic Surgery Inpatient Post Op Check Note Patient Name: Rajan Marquez Patient : 1950 Patient Patient Location: [address] Attending Surgeon: GILMER FOSTER ID: Rajan [...] from 03/29/2021 in Short Stay Unit at [facility] Office Visit from 02/17/2021 in Otolaryngology at [facility] Weight 100.3 kg (221 lb 1.6 oz) [...] Result Value Ref Range Surgical Pathology Report [id number] Location: OR; OR11; A The signing pathologist has (i) examined the relevant preparation(s) for the specimen(s) and (ii) rendered or confirmed the diagnosis(es). . Frozen Section FROZEN SECTION DIAGNOSIS AFS - Left upper lobe wedge, excision (1) for frozen section Positive for non-small cell carcinoma. 03/29/21 13:48 Electronically signed by: Malia Lacy MD Verified: 03/29/2021 13:49 Pathologist Performed at: -[facility] Dept. of Pathology, [place], [place] This intraoperative consultation should be interpreted [...] Rosario MD 03/29/2021 Thoracic Surgery Service Pager [phone] * Debbie Pride RN - 03/29/2021 5:39 PM EST 1720: RN break relief. Amiodarone drip started. CXR complete. * Isis Cr RN - 03/29/2021 4:44 PM EST Patient arrived from OR in bed, attached to monitors and alarms set appropriately for patient. VSS.Patient alert. CT tube connected to suction. 1829 - IV amio completed. VSS. 1929 - Report called [...] STEVE Noguera 03/29/2021 Thoracic Surgery Service Pager [phone] documented in this encounter Nursing Notes * [...] MEDICARE Payor: AAR MANAGED MEDICARE / Plan: AAR HMO MANAGED MEDICARE COMPLETE / Product Type: *No Producttype* / Secondary Insurance: N/A Prescription Coverage: YES Preferred Pharmacy: No Pharmacies Listed This plan was formulated with input from patient and team. All are in agreement with plan. Initial IMM given: 03/30/21 11:18 AM OCM RS to provide DC IMM R. (Jose Manuel) CHRISTINA Salinas RN/CM - Cellphone: [phone] Pager: [phone] Covering Service RN/CM * Initial Assessments - [...] SO, would be surrogate decision maker per [place] surrogate decision making law. (Only good for 180 days) Any patient receiving care at [facility] must abide by [place] law. The hierarchy for surrogate decision making [...] (i) The agent with financial power of family law attorney or a conservator appointed in accordance [...] Current DME: none Home Address confirmed as: [address] [place] [address] Social & Family Supports: All names listed below confirmed with patient as current and correct Extended Emergency Contact Information Primary Emergency Contact: SHAY PARISH Address: [address] [place] [address] Mobile Relation: Life Partner Secondary Emergency Contact: [...] removed before discharge Health/Prescription Coverage: Primary Insurance: [facility] [place] MEDICARE Payor: [facility] MANAGED MEDICARE / Plan: [facility] MA[facility] COMPLETE / Product Type: *No Producttype* / Secondary Insurance: N/A Prescription Coverage: Yes Preferred Pharmacy: No Pharmacies Listed Patient reports he uses [facility], [place], [place] Status: Patient is a : No Primary Care Provider: Tami Olivia [phone] Patient/Caregiver Goals of Treatment: 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 PHONE: [phone] FAX: [phone] Transportation: no concerns Transportation Anticipated: family or [...] Reyes RN CM(remote) Melania Salinas RN CM [phone] * Brief Op Note - Say Mo MD - 03/29/2021 4:35 PM EST Brief Operative Note Patient Name: Rajan Marquez : [id number] MR#: [id number] Case Date: 03/29/2021 Surgeon: Surgeon(s) and Role: * Gilmer Foster MD - Primary * Renu Tan PA - Physician Construction Rep * Say Mo MD - Resident Preoperative [...] SPECIMEN TO PATHOLOGY Freeze mass, not margin 90579 left upper lobe lung mass left upper lobe wedge excision YES, Please perform frozen section 03/29/2021 1:18 PM Number of tissue samples (in container) 1 Time specimen removed from patient: 1:18 PM PATHOLOGY ORDER UPDATE [id number] 03/29/2021 1:29 PM Additional information: Additional Info Enter requested changes: Fragment of tumor marked with stitch eD-H Order Id number [id number] SPECIMEN TO PATHOLOGY 73588 left upper lobe lung mass left upper lobectomy resection 03/29/2021 3:39 PM Number of tissue samples (in container) 1 Time specimen removed from patient: 3:36 PM SPECIMEN TO PATHOLOGY 47037 left upper lobe lung mass AP Window [...] Foster MD - 03/29/2021 1:01 PM EST [facility] Operative Note Patient Name: Rajan Marquez : [id number] MR#: [id number] Case Date: 03/29/2021 Surgeon: Surgeon(s) and Role: * Gilmer Foster MD - Primary * Renu Tan PA - Physician Construction Rep * Say Mo MD - Resident Preoperative [...] SPECIMEN TO PATHOLOGY Freeze mass, not margin 68971 left upper lobe lung mass left upper lobe wedge excision YES, Please perform frozen section 03/29/2021 1:18 PM Number of tissue samples (in container) 1 Time specimen removed from patient: 1:18 PM PATHOLOGY ORDER UPDATE [id number] 03/29/2021 1:29 PM Additional information: Additional Info Enter requested changes: Fragment of tumor marked with stitch eD-H Order Id number [id number] SPECIMEN TO PATHOLOGY 61927 left upper lobe lung mass left upper lobectomy resection 03/29/2021 3:39 PM Number of tissue samples (in container) 1 Time specimen removed from patient: 3:36 PM SPECIMEN TO PATHOLOGY 45538 left upper lobe lung mass AP Window lymph node excision 03/29/2021 3:55 PM Number of tissue samples (in container) 1 Time specimen removed from patient: 3:54 PM Drains: 28 Bulgarian chest tube, left Surgical Closure: Primary Closure [...] adequate. The aorticopulmonary window was explored and pharmaceutical specialty representative lymph nodes were resected. After assessing each port site for hemostasis, a 28 Bulgarian chest tube was placed through the camera [...] Agent &/ Steroid Intercostal Nerve Single Level (20294) 03/29/2021 12:08 PM EST Mass of upper lobe of left lung Thoracoscopy With Mediastinal And Regional Lymphadenectomy 03/29/2021 12:08 PM EST Mass of upper lobe of left lung Bronchoscopy, Diagnostic (58887) 03/29/2021 12:08 PM EST Mass of upper lobe of left lung Thoracoscopy Surg Lobectomy (29091) 03/29/2021 12:08 PM EST Mass of upper [...] who have questions please contact the health restorative care technician that requested your imaging first. ? Narrative [...] patients who have questions please contactthe health restorative care technician that requested your imaging first. Gilmer Foster [...] who have questions please contact the health restorative care technician that requested your imaging first. ? Narrative [...] patients who have questions please contactthe health restorative care technician that requested your imaging first. Gilmer Foster MD IMG DX ORDERABLE S * (ABNORMAL) Differential, Automated (04/01/2021 3:59 AM EST) Neutrophil % 74.5 % [facility] Neutrophil Absolute 7.27(H) 1.70 - 6.10 x10(3)/mc L [facility] Lymph % 14.3 % [facility] Lymphocytes Abs 1.4 0.9 - 3.2 x10(3)/mc L [facility] Monocyte % 9.1 % [facility] Monocyte Abs 0.9 0.3 - 0.9 x10(3)/[facility] Eos % 1.4 % [facility] Eosinophils Abs 0.1 0.0 - 0.4 x10(3)/[facility] Basophil % 0.3 % [facility] Baso Absolute 0.0 0.0 - 0.1 x10(3)/[facility] Immature Gran % 0.40 % [facility] Comment: Immature granulocytes(IG's)percentage and absolute count will include metamyelocytes, myelocytes, and promyelocytes. Blood smears from CBCs yielding IG's will be scanned manually for concordance. If this scan disagrees with the automated IG or if promyelocytes are noted, a manual differential will be performed. Immature Gran Absolute 0.04 0.00 - 0.04 x10(3)/[facility] Blood 04/01/2021 3:59 AM EST 04/01/2021 4:11 AM EST Narrative Resulting Agency Comment Spec In Lab Lacy Rosario MD HEMATOLOGY ORDERABLE S [facility] [place] [address] * (ABNORMAL) Hemogram (04/01/2021 3:59 AM EST) White Blood Cell 9.8(H) 4.0 - 9.5 x10(3)/[facility] Red Blood Cell 4.21(L) 4.58 - 5.54 x10(6)/[facility] Hemoglobin 12.9(L) 13.7 - 16.5 g/dL [facility] Hematocrit 38.6(L) 40.5 - 48.5 % [facility] Mean Cell Volume 91.7 82.9 - 93.1 fL [facility] Mean Cell Hemoglobin 30.6 27.5 - 32.1 pg [facility] Mean Cell Hemoglobin Concentration 33.4 32.0 - 35.7 g/dL [facility] Platelet 176 145 - 357 x10(3)/mc L [facility] RDW Standard Deviation 44.7 36.0 - 45.0 fL [facility] RDW coefficient of variation 13.2 11.4 - 13.8 % [facility] Mean Platelet Volume 10.1 7.6 - 12.9 fL [facility] NRBC% auto 0.0 % [facility] NRBC Absolute 0.000 0.000 - 0.000 x10(3)/mc L [facility] Blood 04/01/2021 3:59 AM EST 04/01/2021 4:11 AM EST Narrative Resulting Agency Comment Spec In Lab Lacy Rosario MD HEMATOLOGY ORDERABLE S Performing Organization Address City/[facility]/ZIP Co de Phone Number [facility] [place] [address] * Phosphorus (04/01/2021 3:59 AM EST) Phosphorus 3.2 2.5 - 4.5 mg/dL [facility] Blood 04/01/2021 3:59 AM EST 04/01/2021 4:11 AM EST Narrative Resulting Agency Comment Spec In Lab Gilmer Foster MD CHEMISTRY ORDERA BLES Performing Organization Address City/[facility]/ZIP Co de Phone Number [facility] [place] [address] * Magnesium (04/01/2021 3:59 AM EST) Magnesium 0.85 0.69 - 1.07 mmol/L [facility] Blood 04/01/2021 3:59 AM EST 04/01/2021 4:11 AM EST Narrative Resulting Agency Comment Spec In Lab Gilmer Foster MD CHEMISTRY ORDERA BLES [facility] [place] [address] * (ABNORMAL) Basic Metabolic Panel (non-fasting) (04/01/2021 3:59 AM EST) Glucose 107 65 - 199 mg/dL [facility] Comment:Diabetes: >=200 mg/d L plus symptoms Blood Urea Nitrogen 22(H) 10 - 20 mg/dL [facility] Creatinine 1.27 0.80 - 1.50 mg/dL [facility] Sodium 137 135 - 145 mmol/L [facility] Potassium 4.3 3.5 - 5.0 mmol/L [facility] Comment: Please note: ??Patients with WBC >100,000 may have falsely elevated Potassium levels. ??For accurate Potassium quantification in these patients send serum separator tube (gold top) for subsequent determinations. ??Contact the Clinical Chemistry Laboratory if there are any questions. Chloride 104 98 - 107 mmol/L [facility] Carbon Dioxide 21(L) 22 - 31 mmol/L [facility] Anion Gap 12 5 - 15 mmol/L [facility] Calcium 8.8 8.5 - 10.5 mg/dL [facility] Est Glomerular Filtration Rate 56(L) >=60 mL/min/1. 73 m?? [facility] Comment: This patient? s estimated glomerular [...] Lab Gilmer Foster MD CHEMISTRY CARMEN GALINDO [facility] [address] * XR Chest PA & Lateral (Generic) [...] who have questions please contact the health restorative care technician that requested your imaging first. ? Narrative [...] patients who have questions please contactthe health restorative care technician that requested your imaging first. Loreta Terrell V, MORTEZA IMG DX ORDERABL ES * XR Chest [...] who have questions please contact the health restorative care technician that requested your imaging first. ? Electronically signed by: Savanah Suazo MD, [facility] ([phone]), at 03/31/2021 11:31 AM Narrative 03/31/2021 11:31 [...] patients who have questions please contactthe health restorative care technician that requested your imaging first. Gilmer Foster MD IMG DX ORDERABLE S * (ABNORMAL) Differential, Automated (03/31/2021 4:08 AM EST) Neutrophil % 71.6 % [facility] Neutrophil Absolute 7.59(H) 1.70 - 6.10 x10(3)/mc L [facility] Lymph % 18.1 % [facility] Lymphocytes Abs 1.9 0.9 - 3.2 x10(3)/mc L [facility] Monocyte % 8.7 % [facility] Monocyte Abs 0.9 0.3 - 0.9 x10(3)/mc L [facility] Eos % 0.6 % [facility] Eosinophils Abs 0.1 0.0 - 0.4 x10(3)/[facility] Basophil % 0.5 % [facility] Baso Absolute 0.0 0.0 - 0.1 x10(3)/[facility] Immature Gran % 0.50 % [facility] Comment: Immature granulocytes(IG's)percentage and absolute count will include metamyelocytes, myelocytes, and promyelocytes. Blood smears from CBCs yielding IG's will be scanned manually for concordance. If this scan disagrees with the automated IG or if promyelocytes are noted, a manual differential will be performed. Immature Gran Absolute 0.05(H) 0.00 - 0.04 x10(3)/[facility] Blood 03/31/2021 4:08 AM EST 03/31/2021 4:16 AM EST Narrative Resulting Agency Comment Spec In Lab Lacy Rosario MD HEMATOLOGY ORDERABLE S [facility] [place] [address] * (ABNORMAL) Hemogram (03/31/2021 4:08 AM EST) White Blood Cell 10.6(H) 4.0 - 9.5 x10(3)/ L [facility] Red Blood Cell 3.99(L) 4.58 - 5.54 x10(6)/mc L [facility] Hemoglobin 12.3(L) 13.7 - 16.5 g/dL [facility] Hematocrit 36.1(L) 40.5 - 48.5 % [facility] Mean Cell Volume 90.5 82.9 - 93.1 fL [facility] Mean Cell Hemoglobin 30.8 27.5 - 32.1 pg [facility] Mean Cell Hemoglobin Concentration 34.1 32.0 - 35.7 g/dL [facility] Platelet 171 145 - 357 x10(3)/mc L [facility] RDW Standard Deviation 43.4 36.0 - 45.0 [facility] RDW coefficient of variation 13.2 11.4 - 13.8 % [facility] Mean Platelet Volume 10.1 7.6 - 12.9 [facility] NRBC% auto 0.0 % [facility] NRBC Absolute 0.000 0.000 - 0.000 x10(3)/mc L [facility] Blood 03/31/2021 4:08 AM EST 03/31/2021 4:16 AM EST Narrative Resulting Agency Comment Spec In Lab Lacy Rosario MD HEMATOLOGY ORDERABLE S Performing Organization Address City/[facility]/ZIP Co de Phone Number [facility] [place] [place] [address] * Phosphorus (03/31/2021 4:08 AM EST) Phosphorus 3.2 2.5 - 4.5 mg/dL [facility] Blood 03/31/2021 4:08 AM EST 03/31/2021 4:16 AM EST Narrative Resulting Agency Comment Spec In Lab Gilmer Foster MD CHEMISTRY ORDERA BLES Performing Organization Address City/[facility]/ZIP Co de Phone Number [facility] [place] [address] * Magnesium (03/31/2021 4:08 AM EST) Magnesium 0.86 0.69 - 1.07 mmol/L [facility] Blood 03/31/2021 4:08 AM EST 03/31/2021 4:16 AM EST Narrative Resulting Agency Comment Spec In Lab Gilmer Foster MD CHEMISTRY ORDERA BLES [facility] [place] [place] [address] * (ABNORMAL) Basic Metabolic Panel (non-fasting) (03/31/2021 4:08 AM EST) Glucose 114 65 - 199 mg/dL [facility] Comment:Diabetes: >=200 mg/d L plus symptoms Blood Urea Nitrogen 17 10 - 20 mg/dL [facility] Creatinine 1.22 0.80 - 1.50 mg/dL [facility] Sodium 138 135 - 145 mmol/L [facility] Potassium 3.8 3.5 - 5.0 mmol/L [facility] Comment: Please note: ??Patients with WBC >100,000 may have falsely elevated Potassium levels. ??For accurate Potassium quantification in these patients send serum separator tube (gold top) for subsequent determinations. ??Contact the Clinical Chemistry Laboratory if there are any questions. Chloride 105 98 - 107 mmol/L [facility] Carbon Dioxide 22 22 - 31 mmol/L [facility] Anion Gap 11 5 - 15 mmol/L [facility] Calcium 8.5 8.5 - 10.5 mg/dL [facility] Est Glomerular Filtration Rate 59(L) >=60 mL/min/1. 73 m?? [facility] Comment: This patient? s estimated glomerular [...] Resulting Agency Comment Spec In Lab Gilmer M Wamego MD CHEMISTRY CARMEN GALINDO [facility] [place] [place] [address] * (ABNORMAL) XR Chest PA & Lateral [...] who have questions please contact the health restorative care technician that requested your imaging first. ? Electronically signed by: Sara Aaron MD, [facility] ([phone]), at 03/30/2021 1:18 PM Narrative 03/30/2021 1:18 PM EST EXAMINATION: XR [...] patients who have questions please contactthe health restorative care technician that requested your imaging first. Gilmer Foster MD IMG DX ORDERABLE S * (ABNORMAL) Differential, Automated (03/30/2021 4:04 AM EST) Neutrophil % 86.1 % [facility] Neutrophil Absolute 13.63(H) 1.70 - 6.10 x10(3)/mc L [facility] Lymph % 7.9 % [facility] Lymphocytes Abs 1.2 0.9 - 3.2 x10(3)/mc L [facility] Monocyte % 5.6 % [facility] Monocyte Abs 0.9 0.3 - 0.9 x10(3)/mc L [facility] Eos % 0.0 % [facility] Eosinophils Abs 0.0 0.0 - 0.4 x10(3)/mc L [facility] Basophil % 0.1 % [facility] Baso Absolute 0.0 0.0 - 0.1 x10(3)/mc L [facility] Immature Gran % 0.30 % [facility] Comment: Immature granulocytes(IG's)percentage and absolute count will include metamyelocytes, myelocytes, and promyelocytes. Blood smears from CBCs yielding IG's will be scanned manually for concordance. If this scan disagrees with the automated IG or if promyelocytes are noted, a manual differential will be performed. Immature Gran Absolute 0.05(H) 0.00 - 0.04 x10(3)/[facility] Blood 03/30/2021 4:04 AM EST 03/30/2021 4:14 AM EST Narrative Resulting Agency Comment Spec In Lab Lacy Rosario MD HEMATOLOGY ORDERABLE S [facility] [place] [address] * (ABNORMAL) Hemogram (03/30/2021 4:04 AM EST) White Blood Cell 15.8(H) 4.0 - 9.5 x10(3)/[facility] Red Blood Cell 4.20(L) 4.58 - 5.54 x10(6)/[facility] Hemoglobin 13.1(L) 13.7 - 16.5 g/dL [facility] Hematocrit 37.5(L) 40.5 - 48.5 % [facility] Mean Cell Volume 89.3 82.9 - 93.1 fL [facility] Mean Cell Hemoglobin 31.2 27.5 - 32.1 pg [facility] Mean Cell Hemoglobin Concentration 34.9 32.0 - 35.7 g/dL [facility] Platelet 183 145 - 357 x10(3)/[facility] RDW Standard Deviation 41.9 36.0 - 45.0 fL [facility] RDW coefficient of variation 12.9 11.4 - 13.8 % [facility] Mean Platelet Volume 10.3 7.6 - 12.9 fL [facility] NRBC% auto 0.0 % [facility] NRBC Absolute 0.000 0.000 - 0.000 x10(3)/mc L [facility] Blood 03/30/2021 4:04 AM EST 03/30/2021 4:14 AM EST Narrative Resulting Agency Comment Spec In Lab Lacy Rosario MD HEMATOLOGY ORDERABLE S Performing Organization Address City/[facility]/ZIP Co de Phone Number [facility] [place] [address] * Phosphorus (03/30/2021 4:04 AM EST) Phosphorus 3.1 2.5 - 4.5 mg/dL [facility] Blood 03/30/2021 4:04 AM EST 03/30/2021 4:14 AM EST Narrative Resulting Agency Comment Spec In Lab Gilmer Foster MD CHEMISTRY ORDERA BLES Performing Organization Address [facility] Co de Phone Number [facility] [place] [place] [address] * (ABNORMAL) Magnesium (03/30/2021 4:04 AM EST) Magnesium 0.67(L) 0.69 - 1.07 mmol/L [facility] Blood 03/30/2021 4:04 AM EST 03/30/2021 4:14 AM EST Narrative Resulting Agency Comment Spec In Lab Gilmer Foster MD CHEMISTRY ORDERA BLES Performing Organization Address [facility] Co de Phone Number [facility] [place] [place] [address] * Basic Metabolic Panel (non-fasting) (03/30/2021 4:04 AM EST) Glucose 138 65 - 199 mg/dL [facility] Comment:Diabetes: >=200 mg/d L plus symptoms Blood Urea Nitrogen 20 10 - 20 mg/dL [facility] Creatinine 1.15 0.80 - 1.50 mg/dL [facility] Sodium 136 135 - 145 mmol/L [facility] Potassium 3.9 3.5 - 5.0 mmol/L [facility] Comment: Please note: ??Patients with WBC >100,000 may have falsely elevated Potassium levels. ??For accurate Potassium quantification in these patients send serum separator tube (gold top) for subsequent determinations. ??Contact the Clinical Chemistry Laboratory if there are any questions. Chloride 103 98 - 107 mmol/L [facility] Carbon Dioxide 22 22 - 31 mmol/L [facility] Anion Gap 11 5 - 15 mmol/L [facility] Calcium 8.9 8.5 - 10.5 mg/dL [facility] Est Glomerular Filtration Rate 64 >=60 mL/min/1. 73 m?? [facility] Comment: This patient? s estimated glomerular [...] Spec In Lab Gilmer Foster MD CHEMISTRY ORDERClemencia GALINDO [facility] [place] [address] * XR Chest One View (03/29/2021 5:35 [...] who have questions please contact the health restorative care technician that requested your imaging first. ? Electronically signed by: Casa Sanchez MD, [facility] ([phone]), at 03/29/2021 5:37 PM Narrative 03/29/2021 5:37 [...] patients who have questions please contactthe health restorative care technician that requested your imaging first. Electronically signed by: Casa Sanchez MD, [facility]([phone]), at 03/29/2021 5:37 PM Gilmer Foster MD IMG DX ORDERABLE S * Specimen to Pathology (03/29/2021 3:55 PM EST) AP Specimen 03/29/2021 3:55 PM EST 03/29/2021 3:55 PM EST Narrative [facility] - 03/29/2021 3:55 PM EST Specimen requisition ordered. ??Separate Pathology report to follow Gilmer Foster MD PATHOLOGY/CYTOLO GY ORDERABLES Performing Organization Address [facility] Co de Phone Number [facility] [place] [address] * Specimen to Pathology (03/29/2021 3:39 PM EST) AP Specimen 03/29/2021 3:39 PM EST 03/29/2021 3:39 PM EST Narrative [facility] - 03/29/2021 3:39 PM EST Specimen requisition ordered. ??Separate Pathology report to follow Gilmer Foster MD PATHOLOGY/CYTOLO GY ORDERABLES Performing Organization Address City/[facility] [place] [address] * Solid Tumor NGS Panel (03/29/2021 1:18 PM EST) Tissue 03/29/2021 1:18 PM EST 04/10/2021 2:38 PM EST Narrative Resulting Agency Comment Spec In Lab Gilmer Foster MD PATHOLOGY/CYTOLO GY ORDERABLES Performing Organization Address City/[facility]/ZIP Co de Phone Number [facility] [place] [address] * Surgical Pathology Report (03/29/2021 1:18 PM EST) Final Diagnosis [id number] ? Location: [facility]; 11; A The signing pathologist has (i) examined [...] The assay was performed according to the licensed club manager's instructions using Anti-PD-L1 (22C3, pharmDX) antibody. Electronically signed by: ?Eugene FLORES PhD, Alysia Verified: ??04/12/2021 8:54 ?? Pathologist Performed at: ??-[facility] Dept. of Pathology, [place], [place] ?Surgical Pathology DIAGNOSIS A) Left upper [...] Soriano Verified: ??04/09/2021 11:33 ??Pathologist Performed at: ??-[facility] Dept. of Pathology, [place], [place] SYNOPTIC Specimen ? Procedure: ??Lobectomy ? [...] These foci are ?favored to represent entrapped nikolai mucin cells; however, the possibility ?of focal glandular carcinoma differentiation cannot be entirely excluded. Tumor Block(s): ??B7 Normal Block(s): ??C1 [facility] January 2021 Release DISCUSSION Tumor somatic mutation testing and PD-L1 IHC testing have been ordered and will be reported separately. ADDITIONAL STUDIES Whole slide scan: pharmaceutical specialty representative slide(s) EVG stains were evaluated for [...] ?Negative B5 ? p40 ?Positive B5 ? [id number] ? Positive B6 ? [id number] ? Positive B8 ? p40 ?Positive B8 [...] is submitted for frozen section: FS 1-lesion. Bomb Loader sections in 3 cassettes as follows: ?A1: ??FS1 frozen section remnant/lesion ?A2: ??Closest staple line (including possible residual lesion) ?A3: ??Bomb Loader lung parenchyma adjacent to lesion B - [...] of friable pleural disruption is inked blue Bomb Loader sections in 14 cassettes as follows: ?B1: ??Bronchial margin, en face ?B2: ??Vascular margins, en face ?B3: ??Parenchymal staple margin ?B4: ??Prior wedge staple line ?B5-B7: ??Mass in relation to disrupted pleura (inked blue) ?B8-B9: ??Mass with adjacent uninvolved lung parenchyma . SPECIMEN PROCESSING ?B10: ??Bomb Loader uninvolved lung parenchyma ?B11: ??Single intact lobar [...] Swann Verified: ??03/29/2021 13:49 ??Pathologist Performed at: ??-[facility] Dept. of Pathology, [place], [place] This intraoperative consultation should be interpreted as a preliminary diagnosis pending review of the entire specimen and special studies, if any. A final Surgical Pathology report will follow this preliminary Frozen Section report(s). 04/12/2021 8:54 AM EST [facility] LYMPH NODE SPECIMEN / Unknown 03/29/2021 1:18 PM EST 03/29/2021 1:18 PM EST LUNG STRUCTURE / Unknown 03/29/2021 1:18 PM EST 03/29/2021 1:18 PM EST LYMPH NODE SPECIMEN / Unknown 03/29/2021 1:18 PM EST 03/29/2021 1:18 PM EST Gilmer Foster MD PATHOLOGY/CYTOLO GY ORDERABLES [facility] [place] [place] [address] * Specimen to Pathology (03/29/2021 1:18 PM EST) AP Specimen 03/29/2021 1:18 PM EST 03/29/2021 1:18 PM EST Narrative [facility] - 03/29/2021 1:18 PM EST Specimen requisition ordered. ??Separate Pathology report to follow Gilmer Foster MD PATHOLOGY/CYTOLO GY ORDERABLES [facility] [place] [address] * POCT Glucose (03/29/2021 12:02 PM EST) Glucose, POC 89 65 - 199 mg/dL [facility] Comment: Supplemental ranges: <140 mg/dL before meals <180 mg/dL all other times of the day Blood 03/29/2021 12:0 2 PM EST 03/29/2021 12:02 PM EST Gilmer Foster MD POINT OF CARE TE ST ORDERABLES [facility] [place] [address] documented in this encounter Visit Diagnoses Diagnosis Mass of upper lobe of left lung S/P lobectomy of lung Other postprocedural status Mass of upper lobe of left lung Mass of upper lobe [...] 03/31/2021 9:07 AM EST 2.5 mg AMIOdarone (Paceron) tablet 400 mg 400 [...] Given 03/31/2021 6:33 AM EST 2 .Inhalation BUpivacaine (pf) (Marcaine) (5 mg/mL) 0.5% injection ONCE PRN, Starting on Sat03/29/21 at 1305, Until Sat04/01/21 at 1725, Intra-Operative (Intra-Procedure), Routine Given 03/29/2021 4:16 PM EST 11 mLs Given 03/29/2021 1:05 PM EST 19 mLs buPROPion SR (Wellbutrin SR) tablet 150 mg [...] Routine Given 04/01/2021 5:41 AM EST 5,000 Unit s Given 03/31/2021 10:05 PM EST 5,000 Units Given 03/31/2021 2:34 PM EST 5,000 Units ketorolac (Toradol) (30 mg/mL) injection 15 mg 15 mg, Intravenous, EVERY 8 HOURS PRN, Starting on Sat03/29/21 at 2041, Until 04/01/21 at 1725, Pain, Routine Given 04/01/2021 5:39 AM EST 15 mg Given 03/31/2021 10:09 PM EST 15 mg Given 03/30/2021 8:53 PM EST 15 mg lisinopriL (Zestril) tablet 5 mg 5 mg, Oral, DAILY, First dose on Sat03/30/21 at 1015, Until Discontinued, Routine Given 04/01/2021 9:01 AM EST 5 mg Given 03/31/2021 9:08 AM EST 5 mg Given 03/30/2021 11:39 AM EST 5 mg mometasone (Asmanex) aerosol 2 puff 2 puff [...] Vanessa Salcedo RN)1139 (Given - Provider: Debbie Pride, CHRISTINA)1710 (Given - Provider: Debbie Pride RN) 0003 (Given - Provider: Gabi Cotto RN)0633 (Given - Provider: Gabi Cotto RN)1153 (Given - Provider: Olamide Bucio RN)1753 (Given - Provider: Olamide Bucio RN) 0037 (Given - Provider: Leonora Kingsley RN)0539 (Given - Provider: Leonora Kingsley RN)1200 [...] Debbie Pride RN)1441 (Given - Provider: Debbie Pride, CHRISTINA)2130 (Not Given - Provider: Gabi Cotto RN [...] 1730, Routine 0035 (Given - Provider: Vanessa Salcedo, CHRISTINA)0912 (Given - Provider: Debbie Pride RN)1710 (Given - Provider: Debbie Pride, CHRISTINA) 0144 (Given - Provider: Gabi Cotto, CHRISTINA)09 (Given - Provider: Olamide Bucio, CHRISTINA)175 (Given - Provider: Olamide Bucio RN) 003 (Given - Provider: Leonora Kingsley, CHRISTINA)0902 (Given - Provider: Malia Paredes, CHRISTINA) aspirin EC tablet 81 mg 81 mg, Oral, DAILY, First dose on Stephanie 03/30/21 at 0900, Until Discontinued, Routine 0914 (Given - Provider: Debbie Pride RN) 0908 (Given - Provider: Olamide Bucio, CHRISTINA) 0900 (Given - Provider: Malia Paredes, CHRISTINA) budesonide-formoteroL (Symbicort) 160-4.5 mcg/actuation inhaler 2 Inhalation 2 .Inhalation , Inhalation, 2 TIMES DAILY (RESPIRATORY THERAPY), First dose on Stephanie 03/30/21 at 0600, Until Discontinued 0600 (Not Given - Provider: Vanessa Salcedo RN - Reason: Patient/family refused)171 (Given - Provider: Debbie Pride, CHRISTINA) 0633 (Given - Provider: Gabi Cotto, CHRISTINA)175 (Given - Provider: Olamide Bucio RN) 0543 (Given - Provider: Leonora Kingsley, CHRISTINA) buPROPion SR (Wellbutrin SR) tablet 150 mg 150 mg, Oral, DAILY, First dose on Stephanie [...] Debbie Pride RN)1440 (Given - Provider: Debbie Pride, CHRISTINA)205 (Given - Provider: Gabi Cotto RN) 0908 (Given - Provider: Olamide Bucio RN)1500 (Not Given - Provider: Olamide Bucio RN - Reason: Patient/family refused)2020 (Given - Provider: Leonora Kingsley RN) 0900 (Given - Provider: Malia Paredes RN)1500 (Due) heparin (porcine) (5,000 units/1 mL) subcutaneous [...] Bucio RN) 0901 (Given - Provider: Malia Paredes RN) magnesium sulfate 2 g in sterile [...] Debbie Pride RN)2051 (Given - Provider: Gabi Cotto RN) 09 (Given - Provider: Olamide Bucio RN)2019 (Given - Provider: Leonora Kingsley RN) 0859 [...] Comment: removed earlier by pt per pt) 09 (Patch Removed - Provider: Olamide Bucio RN) 0900 (Patch Removed - Provider: Malia Paredes RN) nicotine (NICODERM [...] (dose and location) verified - Provider: Leonora Kingsley, RN) 0900 (Due) pantoprazole EC (Protonix) tablet 40 mg 40 mg, Oral, DAILY, First dose on Sat03/30/21 at 0900, Until Discontinued, DO NOT CRUSH OR OPEN 0914 (Given - Provider: Debbie Pride RN) 0908 (Given - Provider: Olamide Bucio RN) 09 (Given - Provider: Malia Paredes, CHRISTINA) senna (Senokot) tablet 17.2 mg 17.2 mg, Oral, EVERY EVENING, First dose on Sat03/30/21 at 1700, Until Discontinued, Routine 171 (Given - Provider: Debbie Pride RN) 1700 (Not Given - Provider: Olamide Bucio RN - Reason: Patient/family refused) sodium chloride 0.9 % (flush) (BD PosiFlush Normal Saline 0.9) flush 5 mL 5 mL, Intravenous, 2 TIMES DAILY, First dose on Sat03/29/21 at 2100, Until Discontinued, Recovery (Recovery-Hospital Unit), Routine 0900 (Given - Provider: Debbie Pride RN)2051 (Given - Provider: Gabi Cotto RN) 0916 (Given - Provider: Olamide Bucio RN)2019 (Given - Provider: Leonora Kingsley, CHRISTINA) 09 (Given - Provider: Malia Paredes, CHRISTINA) tamsulosin (Flomax) capsule 0.4 mg 0.4 mg, Oral, DAILY, First dose on Sat03/30/21 at 0900, Until Discontinued, DO NOT CRUSH OR OPEN, Routine 0915 (Given - Provider: Debbie Pride RN) 09 (Given - Provider: Olamide Bucio RN) 09 (Given - Provider: Malia Paredes, CHRISTINA) Continuous Medication Order 03/30/2021 03/31/2021 04/01/2021 lactated ringers infusion (CANCELED) 50 mL/hr, Intravenous, CONTINUOUS, Starting on Sat03/29/21 at 1915, Until Sat03/30/21 at 0751, Recovery (Recovery-Hospital Unit) 0000 (Rate/Dose Verify - Provider: Vanessa Salcedo RN)0100 (Rate/Dose Verify - Provider: Vanessa Salcedo RN)0200 (Rate/Dose Verify - Provider: Vanessa Salcedo RN)0300 (Rate/Dose Verify - Provider: Vanessa Salcedo RN)0400 (Rate/Dose Verify - Provider: Vanessa Salcedo RN)0500 (Rate/Dose Verify - Provider: Vanessa Salcedo RN)0751 (Stopped - Provider: Debbie Pride RN) PRN [...] PRN, Starting on Sat03/29/21 at 1845, Until Sat04/01/21 at 1725, flush, Flush pertains to all [...] patch documented in this encounter Care Teams Geological Aide Relationship Specialty Start Date End Date CorwinRomaTami [address] [place] [address] PCP - General Family Medicine 12/30/20 documented as of this encounter
--- OUTSIDE RECORDS SUMMARY | 2023-12-11 17:36 | XMS_ITS | Encounter Summary ---
Author Organization [facility] Address [facility] [place] [address] Care Team Providers Care Hse Manager Name Role Phone Tami Olivia Primary Care Provider [phone] Reason for Visit * Auth/Cert Specialty Diagnoses / Procedures Referred By Bert gautam Referred To Contact Diagnoses Mass of upper lobe of left lung left upper lobe lung mass Procedures PRO THORACOSCOPY SURG LOBECTOMY PRO BRONCHOSCOPY, DIAGNOSTIC @THORACOSCOPY,SURGICAL,W\LOBECTOMY, TOTAL OR SEGMENTAL (WRVU 24.64) BRONCHOSCOPY, DIAGNOSTIC (WRVU 2.78) Referral ID Status Reason Start Date Expiration Date Visits Re quested Visits Authorized [id number] 1 1 Encounter Details Date Type Department Care Team (Late st Contact Info) Description 03/29/2021 12:09 PM EST Anesthesia Event [place] [address] Anali Dubon MD [facility] DR [place] [address] Anesthesia Record Procedure Summary Procedure Name Responsible Anesthesiologist Anesthesia Start Time Anesthesia Stop Time @THORACOSCOPY,SURGI KRYSTLE,W\LOBECTOMY,TOT AL OR SEGMENTAL (WRVU 24.64) (Left: Chest) Anali Dubon MD 03/29/21 1209 03/29/21 1653 Events Date Time Event Comment 03/29/2021 1155 1209 AN Verify 1209 Start 1209 An Start Data 1212 An Induction 1220 An Intubation 1221 FO Bronchoscopy 1234 Anesthesia Ready 1247 FO Bronchoscopy 1251 An one lung vent 1252 Procedure Start 1607 An Dual Lung Vent 1627 Procedure Stop 1638 Extubation/LMA Out 1642 an stop data 1651 Recovery or ICU Handoff Lucy ent care was transferred to the destination unit staff after review of the patient's medical history, current anesthetic/surgical status and plan, according to the Provider Handoff Checklist. 1652 Stop Meds Name Total IV Lidocaine 100 mg Propofol 370 mg Rocuronium 140 mg PHENYLephrine 160 mcg ePHEDrine 20 mg Dexamethasone 8 mg Neostigmine 4 mg Glycopyrrolate 0.6 mg PHENYLephrine INF 8,940 mcg ceFAZolin 2 g Dexmedetomidine 28 mcg ketorolac (Toradol) (30 mg/mL) injection 15 mg Lactated Ringers 900 mL Lactated Ringers 950 mL * Agents Name O2 Air N2O Sevoflurane (et) * Blood No blood administrations on file. Lines, Drains, and Airways Type Details Placement Removal (RETIRED) Peripheral IV Line - Single Lumen 02/10/21; 0802; median cubital vein (antecubital fossa), left; vwph-qvp-xiisae catheter system; Anatomical Landmarks; 20 gauge; Rosy; LDA not present upon assessment; 03/29/21; 185802/10/21 0802 by Cornelia Del Castillo 03/29/21 185 by Isis Cr, CHRISTINA Urethral Catheter 03/29/21; Surgery lo nger than 2 hours; indwelling double lumen catheter; hydrophilic coated; 14; inserted at this facility; 1; 5; 10; drainage bag to dependent drainage; 03/30/21; 0900 03/29/21 0000 by Sanket Murphy RN 03/30/21 0900 by Debbie Pride, RN ETT Mask Ventilation: Adjunct (2); ETT Type: Cuffed, Oral; Double Lumen: 39 Fr; Diaz Blade: 2; Indirect: Video; Notes: Asleep, Pre-O2; Attempts: 3; Laryngoscopy Grade: n/a; ETT Placement Verified By: Auscultation, Capnometry, Visual; Inserted by: Kerry FLORES; Removal Date: 03/29/21; Removal Time: 163703/29/21 1220 by Sommer Payne MD 03/29/21 1638 by Sommer Payne MD Arterial Line 03/29/21; 1231; radi al artery, right; 20 gauge; Anatomical Landmarks, Guidewire; continuous blood pressure monitoring; Kerry FLORES; Sterile Prep, Sterile Gloves; no longer indicated; 03/29/21; 1900 03/29/21 1231 by Sommer Payne MD 03/29/21 1900 by Isis Cr RN Incision 03/29/21; 1307; Left ; flank; laparoscopic punctures (specify); LDA not present upon assessment; 02/08/22 03/29/21 1307 by Sanket Murphy, CHRISTINA 02/08/22 0000 by Judie Carrasco RN (RETIRED) Peripheral IV Line - Single Lumen 03/29/21; 1341; metacarpal vein (top of hand), left; ermi-uea-vulsir catheter system; Anatomical Landmarks; 18 gauge; Kerry FLORES; removed per policy/procedure, site care per policy/procedure, site symptomatic, catheter/device intact; 03/31/21; 205503/29/21 1341 by Sommer Payne MD 03/31/212055 by Zora Bob RN Chest Tube 03/29/21; 1600; Left ; 28Fr Straight; 02/08/22 (Chest tube not present) 03/29/21 1600 by Sanket Murphy, CHRISTINA 02/08/22 0000 by Judie Carrasco RN documented in this encounter Social History [...] OR Notes * Anesthesia Postprocedure Evaluation - Sommer Payne MD - 03/29/2021 4:56 PM EST Department of Anesthesiology Post-procedure Note Patient: Rajan Marquez Procedure Summary Date: 03/29/21 Room / Location: [facility] Anesthesia Start: 1209 Anesthesia Stop: 165 Procedures: @THORACOSCOPY,SURGICAL,W\LOBECTOMY,TOTAL OR SEGMENTAL (WRVU 24.64) (Left Chest) BRONCHOSCOPY, DIAGNOSTIC (WRVU 2.78) (N/A ) @THORACOSCOPY, SURG; W/MEDIASTINAL& REGIONAL LYMPHADENECTOMY (WRVU 4.12) (Chest) NERVE BLOCK, INTERCOSTAL NERVE (WRVU 1.18) (Left ) @THORACOSCOPY, SURG; W/DX WEDGE RESC W/ANATOMIC LUNG RESC (WRVU 3) (Left Chest) Diagnosis: Mass of upper lobe of left lung (left upper lobe lung mass) Surgeons: Gilmer Gutiérrez MD Responsible Provider: Anali Dubon MD Anesthesia Type: general ASA Status: 2 All Anesthesia Providers: Anesthesiologist: Anali Dubon MD Traffic Sign Supervisor: Sommer Payne MD Vitals Value Taken Time BP 123/56 03/29/21 1646 Temp 36.3 ??C (97.3 ??F) 03/29/21 1646 Pulse 73 03/29/21 1656 Resp 17 03/29/21 1656 SpO2 96 % 03/29/21 1656 Pain Level Vitals shown include unvalidated device data. Patient Location: PACU/[facility] Level of Consciousness: Awake and Alert Pain Management: Satisfactory Analgesia PONV: None Cardiovascular Status: At Baseline and Hemodynamically Stable Respiratory Status: Supplemental O2 (NC or FM) Postoperative Fluid Status: Intravascular EUvolemia Possible Anesthetic Complications: NONE apparent at time of evaluation Final Primary Anesthesia Type: General (The anesthetic type performed was the same as planned.) Comments: Sommer Payne MD * Anesthesia Preprocedure Evaluation - Sommer Payne MD - 03/29/2021 6:40 AM EST Pre-Anesthesia Evaluation for: Rajan Marquez a 70 y.o. male. Procedure(s): @THORACOSCOPY,SURGICAL,W\LOBECTOMY,TOTAL OR SEGMENTAL (WRVU 24.64) BRONCHOSCOPY, DIAGNOSTIC (WRVU 2.78) Patient Active Problem List Diagnosis Date Noted ??? Mass of upper lobe of left lung 02/27/2021 Past Medical History: Diagnosis Date ??? BPH (benign prostatic hyperplasia) ??? COPD (chronic obstructive pulmonary disease) ??? Coronary artery disease ??? GERD (gastroesophageal reflux disease) ??? Hypertension ??? Synovitis Past Surgical History: Procedure Laterality Date ??? APPENDECTOMY Social History Tobacco Use ??? Smoking status: Former Smoker Packs/day: 2.00 Years: 50.00 Pack years: 100.00 Quit date: 02/14/2021 Years since quittin.1 ??? Smokeless tobacco: Never Used ??? Tobacco comment: 1 ppd for the past year Substance Use Topics ??? Alcohol use: Not on file Social History Substance and Sexual Activity Drug Use Not on file No Known Allergies Medications: MAR and/or home medications have been reviewed. Physical Exam: Preprocedure Vitals Current as of 03/29/21 0640 No BP, pulse, respiration, SpO2, or temperature recorded. Height: 172.1 cm (5' 7.75) (02/13/21) Weight: 87.1 kg (192 lb) (02/13/21) BMI: 29.41 IBW: 67.8 kg (149 lb 8.9 oz) Airway Assessment: Mallampati: II TM distance: >3 FB Neck ROM: full Cardiovascular Assessment: Rhythm: regular Rate: normal (-) murmur Pulmonary Assessment: breath sounds clear to auscultation (-) wheezes Dental Assessment: (+) lower dentures and upper dentures Misc Assessment: Patient is wearing No contact(s). Last Filed Perioperative Cognitive Screening None Anesthesia Plan: ASA 2 general, with a(n) intravenous induction 70 y.o. 87kg (BMI 30) man with COPD, HTN, mild GERD, and ARACELI spiculated mass presenting for thoracoscopic ARACELI wedge resection, possible lobectomy. PET identified an FDG avid region in the lateral pharyngeal wall which was evaluated by ENT and presumed to be due to mild thrush. Tolerated GA in the past (appendectomy). No family history of anesthetic complications, bleeding orclotting disorders. No airway records available. Patient underwent nuclear stress exercise test 02/13/21 (TERI protocol). A chieved 70% of predictedfor age and gender. 4.6 METS achieved with frequent PVCs, PACs and nonsustained SVT runs. No evidence of ischemia or scar. EKG 02/13/21: sinus rhythm with PACs PFTs 02/13/21: normal FEV1, FVC and FEV1/FVC. Normal DLCO Appropriately NPO. Discussed risks and benefits of general anesthesia, arterial line, and possible central line. Discussed risks of emergence and/or postoperative delirium. Region - Intrathoracic Non-Cardiac Informed Consent: Anesthetic plan and risks discussed with patient. Use of blood products discussed with patient who consented to blood products. Plan discussed with resident and attending. Anesthesia Screening documented in this encounter Plan of Treatment Scheduled Procedures Name Priority Associated Diagnoses Date/Ti ks ELECTROPHYSIOLOGY PROCEDURE Persistent atrial fibrillation CARDIOVERSION-ELECTIVE (WRVU [...] 50 mL infusion Intravenous, PRN, Starting on Sat03/29/21 at 1239, Until Sat03/29/21 at 1656, Administer over 30 Minutes, Anesthesia Intra-op Given 03/29/2021 12:39 PM EST 2 g dexamethasone (Decadron) injection Intravenous, PRN, Starting on Sat03/29/21 at 1458, Until Sat03/29/21 at 1656, Anesthesia Intra-op, Routine Given 03/29/2021 2:58 PM EST 8 mg dexmedetomidine (Precedex) (4 mcg/mL) bolus injection (Anesthsia) Intravenous, PRN, Starting on Sat03/29/21 at 1453, Until Sat03/29/21 at 1656, Anesthesia Intra-op, Routine Given 03/29/2021 3:31 PM EST 8 mcg Given 03/29/2021 3:05 PM EST 4 mcg Given 03/29/2021 2:53 PM EST 8 mcg ePHEDrine sulfate (5 mg/mL) multi-dose injection Intravenous, PRN, Starting on Sat03/29/21 at 1421, Until Sat03/29/21 at 1656, Anesthesia Intra-op, Routine Given 03/29/2021 3:19 PM EST 10 mg Given 03/29/2021 2:18 PM EST 10 mg glycopyrrolate (Robinul) (0.2 mg/mL) multi-dose injection Intravenous, PRN, Starting on Sat03/29/21 at 1613, Until Sat03/29/21 at 1656, Anesthesia Intra-op, Routine Given 03/29/2021 4:13 PM EST 0.6 mg ketorolac (Toradol) (30 mg/mL) injection Intravenous, PRN, Starting on Sat03/29/21 at 1616, Until Sat03/29/21 at 1656, Anesthesia Intra-op, Routine Given 03/29/2021 4:16 PM EST 15 mg lactated ringers infusion Intravenous, CONTINUOUS PRN, Starting on Sat03/29/21 at 1209, Until Sat03/29/21 at 1656, Anesthesia Intra-op New Bag 03/29/2021 12:58 PM EST New Bag 03/29/2021 12:09 PM EST lactated ringers infusion Intravenous, CONTINUOUS PRN, Starting on Sat03/29/21 at 1253, Until Sat03/29/21 at 1656, Anesthesia Intra-op New Bag 03/29/2021 4:18 PM EST New Bag 03/29/2021 12:53 PM EST lidocaine (pf) (Xylocaine) (20 mg/mL) 2% injection syringe Intravenous, PRN, Starting on Sat03/29/21 at 1212, Until Sat03/29/21 at 1656, Anesthesia Intra-op, Routine Given 03/29/2021 12:12 PM EST 100 mg neostigmine (Bloxiver) (1 mg/mL) injection Intravenous, PRN, Starting on Sat03/29/21 at 1613, Until Sat03/29/21 at 1656, Anesthesia Intra-op, Routine Given 03/29/2021 4:13 PM EST 4 mg PHENYLephrine (Maninder-Synephrine) (80 mcg/mL) in sodium chloride 0.9% 250 mL infusion Intravenous, CONTINUOUS PRN, Starting on Sat03/29/21 at 1308, Until Sat03/29/21 at 1656, Anesthesia Intra-op, Routine Rate/Dose Change 03/29/2021 4:22 PM EST 20 mcg/min 15 mL/hr Rate/Dose Change 03/29/2021 4:01 PM EST 40 mcg/min 30 mL/h r Rate/Dose Change 03/29/2021 3:53 PM EST 60 mcg/min 45 mL/h r PHENYLephrine in NS (PF) (MANINDER-SYNEPHRINE) 0.8 mg/10 mL (80 mcg/mL) multi-dose injection Syrg Intravenous, PRN, Starting on Sat03/29/21 at 1309, Until Sat03/29/21 at 1656, Anesthesia Intra-op, Routine Given 03/29/2021 1:09 PM EST 160 mcg propofoL (Diprivan) 10 mg/mL bolus injection (Anesthesia) Intravenous, PRN, Starting on Sat03/29/21 at 1212, Until Sat03/29/21 at 1656, Anesthesia Intra-op Given 03/29/2021 3:40 PM EST 20 mg Given 03/29/2021 3:34 PM EST 50 mg Given 03/29/2021 12:24 PM EST 100 mg rocuronium (Zemuron) (10 mg/mL) multi-dose injection Intravenous, PRN, Starting on Sat03/29/21 at 1436, Until Sat03/29/21 at 1656, Anesthesia Intra-op, Routine Given 03/29/2021 3:34 PM EST 10 mg Given 03/29/2021 2:58 PM EST 10 mg Given 03/29/2021 2:36 PM EST 20 mg documented in this encounter Care Teams Hse Manager Relationship Specialty Start Date End Date Tami Olivia [address] [place] [address] PCP - General Family Medicine 12/30/20 documented as of this encounter
--- OUTSIDE RECORDS SUMMARY | 2023-12-11 17:36 | XMS_ITS | Encounter Summary ---
Author Organization [facility] [place] [address] Care Team Providers Care Blender Machine Operator Name Role Phone Tami Olivia Primary Care Provider [phone] Reason for Referral * Diagnostic Test (Routine) - Closed Specialty Diagnoses / Procedures Referred By Bert gautam Referred To Contact Radiology Diagnoses 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 Pleural effusion Procedures IR Thoracentesis Left Gilmer Gutiérrez MD [facility] [place] [address] [place] [address] Referral ID Status Reason Start Date Expiration Date V isits Requested Visits Authorized [id number] Closed Specialty Service Requested 10/30/2021 05/02/2023 1 1 Reason for Visit * Reason Comments Follow-up Encounter Details Date Type Department Care Team (Late st Contact Info) Description 10/30/2021 2:30 PM EDT Office [place] [id number] Gilmer Gutiérrez MD [facility] [place] [address] Squamous cell carcinoma of left lung; Status [...] Sign Reading Time Taken Comments Blood Pressure 157/75 10/30/2021 2:43 PM EDT Pulse 55 10/30/2021 2:43 PM EDT Temperature 36.3 ??C (97.3 ??F) 10/30/2021 2:43 PM ED T Respiratory Rate 16 10/30/2021 2:43 PM EDT Oxygen Saturation 98% 10/30/2021 2:43 PM EDT Inhaled Oxygen Concentration - - Weight 75.4 kg (166 lb 3.2 oz) 10/30/2021 2:43 P M EDT Height 174.3 cm (5' 8.62) 10/30/2021 2:43 PM ED T Body Mass Index 24.81 10/30/2021 2:43 PM EDT documented in this encounter Progress Notes * Yosef Butcher PA - 10/30/2021 2:30 PM EDT Thoracic Surgery Attending Outpatient Follow Up Note MD Yosef Fischer. ASHLEY Butcher [place] [address] FAX: Reason for Visit: Follow up s/p ARACELI lobectomy HPI: Rajan Marquez is a 70 y.o. male former smoker (100PY history) who is s/p Left VATS LULobectomy on 03/29/2021 who presents today for follow up for surveillance. Patient reports his previous surgical pain has resolved, reports his has some intermittent PRIEST but can pretty much do what I want to do. Reports he has continued to abstain from smoking. He denies interval hospitalizations, surgeries and illnesses as well as F/C/N/V/CP/SOB. Medications: Current Outpatient Medications on File Prior [...] Take 1 tablet by mouth daily. ??? acetaminophen (Tylenol) 500 mg Tablet Take 2 tablets by mouth every 6 hours. (Patient not taking: Reported on 10/30/2021) 30 tablet 1 ??? nicotine (Nicoderm CQ) 21 mg/24 hr Patch 24 hr Change 1 patch on the skin every 24 hours. ??? aspirin EC 81 mg Tablet, Delayed Release (E.C.) Take 81 mg by mouth daily. Current Facility-Administered Medications on File Prior to Visit Medication Dose Route Frequency Provider Last Rate Last Admin ??? [COMPLETED] iohexoL (Omnipaque) (350 mg/mL) solution 0-200 mL 0-200 mL Intravenous Once PRN Kathleen Kemp MD 60 mL at 10/30/21 1428 Physical Exam: BP 157/75 (Patient Position: Sitting) Pulse 55 Temp 36.3 ??C (97.3 ??F) (Temporal) Resp 16 Ht 174.3 cm (5' 8.62) Wt 75.4 kg (166 lb 3.2 oz) SpO2 98% BMI 24.81 kg/m?? General Appearance: Alert, cooperative, no distress, appears stated age Nk: Supple, symmetrical, trachea midline, no adenopathy Lungs: Diminished throughout on Left greatest at base, clear to auscultation on Right, respirationsunlabored, no wheezes, crackles or ronchi appreciated Heart: Regular rate and rhythm, S1 and S2 normal, no murmur, rub, or gallop appreciated Abdomen: Soft, non-tender, non-distended, BS+ Extremities: Extremities normal, atraumatic, no cyanosis or edema Wound/Incision: Well healed Left chest incisions Imaging: We have independently visualized the following studies: CT Chest (10/30/2021): Final read pending per radiology. On our review, [id number] Left pleural effusion appreciated, no new nodules appreciated. Assessment: Rajan Marquez is a 70 y.o. 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 He is currently feeling well, however [id number] Left pleural effusion appreciated on CT today, plan as outlined below: Plan: 1. Will refer patient to IR for Left thoracentesis with cytology, RTC afterwards for discussion 2. Recommend minimum of 30 minutes of exercise daily 3. Continue to abstain from smoking 4. Please call with any questions or concerns at any time * Gilmer Gutiérrez MD - 10/30/2021 2:30 PM EDT Thoracic surgery follow-up visit I saw and examined Mr. Marquez with STEVE Hamlin, and agree with his findings, assessment and plan. In brief: Chief complaint: Follow-up left upper lobectomy History of present illness: Mr. Marquez is a 70-year-old man who underwent thoracoscopic left upper lobectomy on March 29, 2021. He comes in today for scheduled follow-up. He reports a good functionalrecovery and is not smoking. Current Outpatient Medications on [...] medications on file prior to visit. BP 157/75 (Patient Position: Sitting) Pulse 55 Temp 36.3 ??C (97.3 ??F) (Temporal) Resp 16 Ht 174.3 cm (5' 8.62) Wt 75.4 kg (166 lb 3.2 oz) SpO2 98% BMI 24.81 kg/m?? Physical exam: He appears well. He has no neurologic deficits and no palpable adenopathy. There arediminished breath sounds at the left base whereas the right lung is clear. Imaging: His chest CT dated October 30 demonstrates a new moderate to large left pleural effusion Assessment: 70-year-old man now 7 months removed from a thoracoscopic left upper lobectomy, with a left pleural effusion seen on his routine chest CT. I advised him that this could represent a malignant process and that drainage with cytology was indicated. If the effusion resolves after a single drainage we may continue to follow him radiographically. If the effusion has benign histology but recurs a thoracoscopic pleural evaluation may be required. I did advise him that if malignant cells arefound in the pleural effusion he would require systemic therapy. Plan: Ultrasound-guided drainage of left pleural effusion, with further plans to be determined GILMER GUTIÉRREZ MD documented in this encounter Plan of Treatment Scheduled Procedures Name Priority Associated Diagnoses Date/Ti me ELECTROPHYSIOLOGY PROCEDURE Persistent atrial fibrillation CARDIOVERSION-ELECTIVE (WRVU 2) persistent atrial fibrillation TRANSESOPHAGEAL ECHOCARDIOGR AM (WRVU 2.3) persistent atrial fibrillation documented as of this encounter Results * IR Thoracentesis Left [...] Fr inner micropuncture dilator with coaxial mounted Yueh catheter was advanced. A total of 200 [...] Gilmer Gutiérrez MD IMG IR ORDERABLE S documented in this encounter Visit Diagnoses Diagnosis 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 Other postprocedural status Pleural effusion Unspecified pleural effusion 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 Other postprocedural status Pleural effusion Unspecified pleural effusion documented in this encounter Care Teams Blender Machine Operator Relationship Specialty Start Date End Date Tami Olivia [address] [place] [address] PCP - General Family Medicine 12/30/20 documented as of this encounter
--- OUTSIDE RECORDS SUMMARY | 2023-12-11 17:36 | XMS_ITS | Encounter Summary ---
Author Organization [facility] Address [facility] [place] [address] Care Team Providers Care Industrial Accountant Name Role Phone Tami Olivia Primary Care Provider [phone] Reason for Visit * Auth/Cert Specialty Diagnoses / Procedures Referred By Bert gautam Referred To Contact Diagnoses Mass of upper lobe of left lung left upper lobe lung mass Procedures PRO THORACOSCOPY SURG LOBECTOMY PRO BRONCHOSCOPY, DIAGNOSTIC @THORACOSCOPY,SURGICAL,W\LOBECTOMY, TOTAL OR SEGMENTAL (WRVU 24.64) BRONCHOSCOPY, DIAGNOSTIC (WRVU 2.78) Referral ID Status Reason Start Date Expiration Date Visits Re quested Visits Authorized [id number] 1 1 Encounter Details Date Type Department Care Team (Late st Contact Info) Description 03/26/2021 11:30 AM EST Public [place] [address] COVID-19 ruled out Social History Tobacco Use Types Packs/Day Years [...] Procedure Name Priority Date/Time Associated Diagnosis Comments COVID-19 PCR Routine 03/26/2021 2:51 PM EST COVID-19 ruled out documented in this encounter Results * COVID-19 PCR (03/26/2021 2:51 PM EST) SARS-CoV-2 RNA Not Detected Not Detected [facility] Comment: This result should be interpreted in combination with the clinical observations, patient history and epidemiological information in making a final diagnosis. For testing of asymptomatic individuals, assay performance characteristics and clinical utility have not been evaluated. Testing for SARS-CoV-2 (Severe acute respiratory syndrome coronavirus 2, formerly known as 2019 novel coronavirus or 2019-nCoV) to aid in the diagnosis of COVID-19 is performed using the [employer] m SARS-CoV-2 Assay as authorized by the FDA Emergency Use Authorization (EUA). This EUA assay is intended for In-vitro Diagnostic (IVD) use with respiratory specimens such as nasopharyngeal swabs collected from individuals during the acute phase of infection. This assay is performed based on the instructions for use provided by [employer] and additional guidance provided by CDC and FDA. Testing is performed in the [facility] within the Department of Pathology and Laboratory Medicine at [facility], certified under the Clinical Laboratory Improvement Amendments of 1988 (CLIA), 42 U.S.C. 263a, to perform high complexity tests. Assay performance has been verified according to clinical laboratory regulatory requirements for use with specimens collected from individuals suspected of COVID-19. Test results are provided above. A result of Not Detected indicates that the viral RNA target is not present above the limit of detection, but does not preclude SARS-CoV-2 infection. False negative results may occur if a specimen is improperly collected, transported or handled; if amplification inhibitors are present; or if inadequate numbers of viral particles are present in the specimen. When a diagnostic test is negative, the possibility of a false negative result should be considered in the context of a patient's recent exposures and the presence of clinical signs and symptoms consistent with COVID-19. A result of Detected indicates that RNA from SARS-CoV-2 was detected and the patient is infected. As required or requested by public health authorities, positive specimens may be sent for additional testing. Positive and negative predictive values for this test are highly dependent on disease prevalence. A result of Invalid indicates that neither the viral RNA targets nor the internal control target was detected. An invalid result suggests the presence of inhibitors. Recollection and re-testing is recommended in the case of an invalid result. CDC COVID-19 criteria for testing on human specimens and clinical management guidance information are available at the CDC Coronavirus Disease 2019 (COVID-19) webpage under Information for Healthcare Professionals (https://www.cdc.gov/coronavirus/2019-ncov/hcp/index.html) Additional information about this and other EUA tests can be found in provider and patient fact sheets at the following FDA website: https://www.fda.gov/medical-devices/nswzfqqqycz-akiqiej-5638-aaeww-40-unfnfpook- use-a jspuqytqxluug-eaqgcnp-osppivk/seabh-jtlgwplqjdy-izvl SARS-CoV-2 RNA Source TOOLING ENGINEER Swab [facility] Nasopharyngeal Swab 03/26/19 2:51 PM EST 03/26/2021 2:51 PM EST Comment:Symptoms->Asymptomat ic Narrative Resulting Agency Comment Spec In Lab Gilmer Gutiérrez MD [facility] CARMEN GALINDO Performing Organization Address City/State/[facility] Co de Phone Number [facility] [place] [phone] documented in this encounter Visit Diagnoses Diagnosis COVID-19 ruled out documented in this encounter Care Teams Industrial Accountant Relationship Specialty Start Date End Date Tami Olivia [address] [place] [address] PCP - General Family Medicine 12/30/20 documented as of this encounter
--- OUTSIDE RECORDS SUMMARY | 2023-12-11 17:36 | XMS_ITS | Encounter Summary ---
Author Organization [facility] Address [facility] [place] [address] Care Team Providers Care Blast Furnace Checker Name Role Phone Tami Olivia Primary Care Provider [phone] Reason for Referral * Diagnostic Test (Routine) - Closed Specialty Diagnoses / Procedures Referred By Bert gautam Referred To Contact Radiology Diagnoses 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 Procedures CT Chest w Contrast Gilmer Gutiérrez MD [facility] DR THORACIC [place] [address] [facility] [place] [address] Referral ID Status Reason Start Date Expiration Date V isits Requested Visits Authorized [id number] Closed Specialty Service Requested 04/17/2021 10/15/2022 1 1 Encounter Details Date Type Department Care Team (Late st Contact Info) Description 04/17/2021 11:30 AM EST Office [place] [phone] Gilmer Gutiérrez MD [facility] DR THORACIC [place] [address] Squamous cell carcinoma of left [...] Sign Reading Time Taken Comments Blood Pressure 146/74 04/17/2021 11:00 AM EST Pulse 67 04/17/2021 11:00 AM EST Temperature 36.3 ??C (97.3 ??F) 04/17/2021 1 1:00 AM EST Respiratory Rate 20 04/17/2021 11:0 0 AM EST Oxygen Saturation 97% 04/17/2021 11: 00 AM EST Inhaled Oxygen Concentration - - Weight 92.9 kg (204 lb 12.8 oz) 022 11:00 AM EST Height 172.7 cm (5' 7.99) 04/17/2021 1 1:00 AM EST Body Mass Index 31.15 04/17/2021 11:00 AM EST documented in this encounter Patient Instructions * Patient Instructions* Megan Reza RN - 04/17/2021 11:48 AM EST Thank you for visiting Dr. Gutiérrez in clinic 04/17/21 Dr. Gutiérrez would like to see you back in clinic in 6 months with a recent CT scan of your [...] Progress Notes * Gilmer Gutiérrez MD - 04/17/2021 11:30 AM EST Thoracic surgery Hospital check Chief complaint: Follow-up left upper lobectomy History of present illness: Mr. Marquez is a 70-year-old man with a 177-jyen-ddmt smoking history referred to me for a 2.8 cm left upper lobe lung nodule who underwent thoracoscopic left upper lobectomyon Do 19. The procedure was uncomplicated and he was discharged home on postoperative day 3. He comes in today for scheduled follow-up. He reports minimal pain, and his dyspnea is tolerable. Hisactivity level is improving and he denies any infectious symptoms. Overall he is happy with his progress. Current Outpatient Medications on File Prior to Visit Medication Sig Dispense Refill ??? acetaminophen (Tylenol) 500 mg Tablet Take 2 tablets by mouth every 6 hours. 30 tablet 1 ??? lisinopriL (Zestril) 10 mg Tablet Take [...] tablet by mouth daily. ??? [DISCONTINUED] AMIOdarone (PACERONE) 400 mg Tablet Take 1 tablet by mouth every 8 hours. 3 tablet 0 ??? [DISCONTINUED] senna (Senokot) 8.6 mg Tablet Take 1 tablet by mouth every evening. 10 tablet 0 ??? [DISCONTINUED] oxyCODONE (Roxicodone) 5 mg Tablet Take 1 tablet by mouth every 4 hours as needed for Pain (For pain >4/10 not controlled by tylenol/toradol). 10 tablet 0 ??? UNABLE TO FIND Cbd gummies to help with smoking cessation. No current facility-administered medications on file prior to visit. BP 146/74 (BP Location (NBP): Left arm) Pulse 67 Temp 36.3 ??C (97.3 ??F) (Temporal) Resp 20 Ht 172.7 cm (5' 7.99) Wt 92.9 kg (204 lb 12.8 oz) SpO2 97% BMI 31.15 kg/m?? Physical exam: He appears well. He is alert, oriented and in no distress. His lungs are clear, his heart is regular and his abdomen is nontender and nondistended. Imaging: A PA and lateral chest radiograph obtained today demonstrates no significant effusion or pneumothorax Pathology: I reviewed the patient's pathology results with him. 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 He is recovering well from his left upper lobectomy, and I advised him that no further treatmentwas indicated. I recommended standard surveillance with an IV contrast chest CT in 6 months. Plan: Return to clinic in 6 months for IV contrast chest CT MD GILMER MANLEY MD documented in this encounter Plan of Treatment Scheduled Procedures Name Priority Associated Diagnoses Date/Ti me ELECTROPHYSIOLOGY PROCEDURE Persistent atrial fibrillation CARDIOVERSION-ELECTIVE (WRVU 2) persistent atrial fibrillation TRANSESOPHAGEAL ECHOCARDIOGR AM (WRVU 2.3) persistent atrial fibrillation documented as of this encounter Results * (ABNORMAL) CT Chest w Contrast (10/30/2021 2:29 PM EDT) Anatomical Region Laterality Modality Chest Computed Tomogra phy 10/30/2021 2:47 PM EDT Impressions 10/30/2021 4:47 PM EDT 1. ??Postoperative changes status post left upper lobectomy and resection of previously seen left upper lobe spiculated nodule without evidence of disease recurrence. 2. ??Small to moderate left pleural effusion. Several foci of air near the apex of the left hemithorax indicates that this is a hydropneumothorax. An empyema should be considered. Unexpected finding. 3. ??New 9 mm right thyroid lobe hypodense nodule. Consider ultrasound for further evaluation. I have personally reviewed the image(s) and the resident's interpretation and agree with the findings, Marcus Edwards MD at 10/30/2021 4:47 PM Thank you for letting us participate in the care of this patient. ??If you are a health care provider and have any questions regarding this report, please contact the number below. ??For patients who have questions please contact the health physician assistant primary care that requested your imaging first. ? Narrative 10/30/2021 4:47 PM EDT EXAMINATION: CT CHEST W CONTRAST CLINICAL HISTORY: Non-small cell lung cancer, post treatment, no evidence of disease hx of LULobectomy on 03/29/2021 for Squamous Cell Carcinoma, please eval for changes, evidence of disease/recurrence TECHNIQUE: 3.75 mm thick axial contiguous sections were obtained through the chest via helical acquisition after the intravenous administration of contrast, Administered 60.0 ml of OMNIPAQUE 350.00 mg/ml. Thin-section reconstructions as well as coronal and sagittal reformatted images were generated. COMPARISON: PET/CT 02/10/2021 CT chest 12/23/2020 Chest radiographs April 17, 2021 FINDINGS: Pulmonary parenchyma: Postoperative changes status post left upper lobectomy and resection of previously seen 2.5 cm left upper lobe spiculated pulmonary nodule. No new pulmonary nodules. No evidence of disease recurrence. Airways: There is minimal mucous stranding within the trachea. Pleura: Small to moderate left pleural effusion with foci of gas at the left apex. No right pleural effusion. Lymph nodes: No enlarged lymph nodes. Heart, pericardium, and great vessels: The heart is normal in size and without pericardial effusion. Normal course and caliber of the abdominal aorta. Other mediastinal structures: No significant findings. Lower neck: New 9 mm right thyroid lobe hypodense nodule (series 3 image 11). Upper abdomen: Stable right 16 mm and left 29 mm adrenal nodules. Body wall soft tissues: No significant findings. Skeletal structures: Unchanged 7 mm sclerotic lesion within the posterior right eighth rib, likely a bone island. Chronic appearing fracture deformities of the left lateral eighth and ninth ribs. Resulting Agency Comment Unexpected Finding Gilmer Gutiérrez MD IMG CT ORDERABLE S * Creatinine (10/30/2021 1:01 PM EDT) Creatinine 1.01 0.80 - 1.50 mg/dL [facility] Est Glomerular Filtration Rate 80 >=60 mL/min/1. 73 m?? [facility] Comment: This patient's estimated GFR [...] and symptoms in addition to eGFR. Blood 10/30/2021 1:01 PM EDT 10/30/2021 1:41 PM EDT Narrative Resulting Agency Comment Spec In Lab Gilmer Gutiérrez MD CHEMISTRY ORDERA BLES [facility] [place] [address] documented in this encounter Visit Diagnoses Diagnosis 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 Other postprocedural status 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 Other postprocedural status documented in this encounter Care Teams Blast Furnace Checker Relationship Specialty Start Date End Date Tami Olivia [address] [place] [address] PCP - General Family Medicine 12/30/20 documented as of this encounter
--- OUTSIDE RECORDS SUMMARY | 2023-12-11 17:36 | XMS_ITS | Encounter Summary ---
Author Organization [facility] Address [facility] [place] [address] Care Team Providers Care Food Service Order Clerk Name Role Phone Tami Olivia Primary Care Provider [phone] Encounter Details Date Type Department Care Team (Late st Contact Info) Description 03/09/2021 Telephone Public Health at [facility] [place] [phone] Tamika West Social History Tobacco Use Types Packs/Day Years Used Date Smoking Tobacco: Former Cigarettes 2 50 1 04/17/1970 - 02/14/2021 Smokeless Tobacco: Never Comments:1 ppd for the past year Sex and Gender Information Value Date Recorded Sex Assigned at Not on file Gender Identity Not on file Sexual Orientation Not on file documented as of this encounter Miscellaneous Notes * Telephone Encounter - Tamika West - 03/14/2021 1:02 PM EST 1. ASK: TRAVEL ???Have you travelled outside of [place] ([place], [place], [place], [place], [place], [place]) in the past 14 days??? 2. ASK: EXPOSURE Have you been in contact with anyone suspected or confirmed to have COVID-19 in the past 14 days??? 3. ASK: SYMPTOMS Do you have any new or worsening symptoms on this list that are not related to another medical condition? Fever or chills ?? Cough ?? Shortness of breath or difficulty breathing ?? Fatigue ?? Muscle or body aches ?? Headache ?? Loss of taste or smell ?? Sore throat ?? Congestion or runny nose ?? Nausea or vomiting ?? Diarrhea If 'Yes' to any of the questions above Transfer patient to the Covid-19 Hotline Number ([phone]) for further instructions. If 'No' to all of the questions above Is this the first test for Covid 19 Yes If no, please list date of previous test, result, and type of test (Molecular, Antigen, Antibody orunknown): Resides in Nursing/prison or other residential setting No Employee or Household Member of Employee No Healthcare Worker No Telephone call placed/received to schedule Covid 19 testing with patient. Ordering provider: Dr. Gilmer Gutiérrez Testing Facility: [facility] Date of Testin03/26/2021 Time of Testin:30am Symptoms: No Give directions to testing facility. All passengers in the vehicle MUST wear a mask. Leave dogs/pets at home or have them crated/behind a net. * Telephone Encounter - Sayda Ortega - 03/09/2021 3:16 PM EST 03/09 - Rajan will check [facility] to see if he can have COVID test on 03/26 prior to his surgery on 03/29. Rajan will call back on 03/13 with information. * Telephone Encounter - Tamika West - 03/09/2021 2:56 PM EST LM, pt needs a pre-op covid test on 03/26 for a procedure on 03/29 documented in this encounter Plan of Treatment Scheduled Procedures Name Priority Associated Diagnoses Date/Ti me ELECTROPHYSIOLOGY PROCEDURE Persistent atrial fibrillation CARDIOVERSION-ELECTIVE (WRVU 2) persistent atrial fibrillation TRANSESOPHAGEAL ECHOCARDIOGR AM (WRVU 2.3) persistent atrial fibrillation documented as of this encounter Visit Diagnoses Not on filedocumented in this encounter Care Teams Food Service Order Clerk Relationship Specialty Start Date End Date Tami Olivia [address] [place] [address] PCP - General Family Medicine 12/30/20 documented as of this encounter
--- OUTSIDE RECORDS SUMMARY | 2023-12-11 17:36 | XMS_ITS | Encounter Summary ---
Author Organization [facility] [place] [address] Care Team Providers Care Office Assistant Receptionist Name Role Phone Tami Olivia Primary Care Provider Encounter Details Date Type Department Care Team (Latest Contact Info) Description 10/30/2021 1:00 PM EDT Laboratory Appointment Lab [address] [place] [address] Squamous cell carcinoma of left lung; Status [...] Name Priority Date/Time Associated Diagnosis Comments HC CREATININE STAT 10/30/2021 1:01 PM EDT 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 documented in this encounter Results * Creatinine (10/30/2021 1:01 PM EDT) Creatinine 1.01 0.80 - 1.50 mg/dL [facility] Est Glomerular Filtration Rate 80 >=60 mL/min/1. 73 m?? [facility] Comment: This patient's estimated GFR [...] Lab Gilmer Gutiérrez [place] [address] documented in this encounter Visit Diagnoses Diagnosis 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 Other postprocedural status documented in this encounter Care Teams Office Assistant Receptionist Relationship Specialty Start Date End Date Tami Olivia [address] [place] [address] PCP - General Family Medicine 12/30/20 documented as of this encounter
--- OUTSIDE RECORDS SUMMARY | 2023-12-11 17:36 | XMS_ITS | Encounter Summary ---
Author Organization [facility] Address [facility] [place] [address] Care Team Providers Care Bridge Toll Collector Name Role Phone SudhakarJacksonTami Primary Care Provider [phone] Reason for Referral * Diagnostic Test (Routine) - Closed Specialty Diagnoses / Procedures Referred By Bert gautam Referred To Contact Radiology Diagnoses 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 Procedures CT Chest w Contrast Gilmer Gutiérrez MD [facility] [place] [address] [facility] [place] [address] Referral ID Status Reason Start Date Expiration Date V isits Requested Visits Authorized [id number] Closed Specialty Service Requested 04/17/2021 10/15/2022 1 1 Reason for Visit * Diagnostic Test (Routine) - Closed Specialty Diagnoses / Procedures Referred By Bert gautam Referred To Contact Radiology Diagnoses 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 Procedures CT Chest w Contrast Gilmer Gutiérrez MD [facility] [place] [address] [facility] [place] [address] Referral ID Status Reason Start Date Expiration Date V isits Requested Visits Authorized [id number] Closed Specialty Service Requested 04/17/2021 10/15/2022 1 1 Encounter Details Date Type Department Care Team (Latest Contact Info) Description 10/30/2021 1:06 PM EDT - 10/30/2021 11:59 PM EDT Hospital [place] [phone] Gilmer Gutiérrez MD [facility] [place] [address] Squamous cell carcinoma of left lung; Status [...] Diagnosis Comments CT CHEST W CONTRAST Routine 10/30/2021 2 :29 PM EDT 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 documented in this encounter Results * (ABNORMAL) CT Chest [...] have questions please contact the health healthcare manager that requested your imaging first. ? Electronically signed by: Marcus Edwards MD, [facility] ([phone]), at 10/30/2021 4:47 PM Narrative 10/30/2021 4:47 PM EDT EXAMINATION: CT [...] Intravenous, ONCE PRN, 1 dose, Starting on 10/30/22 at 1418, Until Sat10/30/21 at 1429, Per Protocol, Warning Vesicant/Irritant Medication , Radiology Contrast, Routine Given 10/30/2021 2:29 PM EDT 60 mLs documented in this encounter Care Teams Bridge Toll Collector Relationship Specialty Start Date End Date Tami Olivia [address] [place] [address] PCP - General Family Medicine 12/30/20 documented as of this encounter
--- OUTSIDE RECORDS SUMMARY | 2023-12-11 17:37 | XMS_ITS | Encounter Summary ---
Author Organization [facility] Address [address] [place] [address] Care Team Providers Care Skilled Helper Name Role Phone Tami Olivia Primary Care Provider [phone] Encounter Details Date Type Department Care Team (Late st Contact Info) Description 12/11/2021 Lab Requisition [facility] Pathology & Laboratory Medicine - [address] [id number] Josephine Sotomayor MD [address] [facility], Level 5 [place] [phone] Pleural effusion, not elsewhere classified; Malignant neoplasm of unspecified part of left bronchus or lung (HCC-CMS) Social History Tobacco Use Types Packs/Day Years Used Date Smoking Tobacco: Every Day Cigarettes 0.5 59.8 Started: 1966 Smokeless Tobacco: Never Comments:decreasing his inta ke 1ppd down to 10 cigaretts daily Alcohol Use Standard Drinks/Week Comments Never 0 (1 standard drink = 0.6 oz pur e alcohol) AUDIT-C Answer Date Recorded Q1: How often do you have a drink containing alc ohol? Never 11/05/2019 Q2: How many drinks containi ng alcohol do you have on a typical day when you are drinking? Not asked 11/05/2019 Q3: How often do you have six or more drinks on one occasion? Never 11/05/2019 Interpersonal Safety Answer Date Record ed Physically Hurt Never 10/11/2019 Verbally Threaten Not on file 10/11/2019 Sex and Gender Information Value Date Recorded Sex Assigned at Not on file Gender Identity Male 11/05/2019 8:00 EDT Sexual Orientation Not on file documented as of this encounter Functional Status Functional Status Response Date of Assess ment Because of a physical, menta l, or emotional condition, does this person have difficulty doing errands alone such as visiting a doctor's office or shopping? No 12/04/2019 Cognitive Status Response Date of Assessm ent Because of a physical, menta l, or emotional condition, does this person have serious difficulty concentrating, remembering, or making decisions? No 12/04/2019 documented as of this encounter Plan of Treatment Not on file documented as of this encounter Procedures Procedure Name Priority Date/Time Associated Diagnosis Comments LEUKEMIA/LYMPHOMA PANEL BY FLOW CYTOMETRY Today 12/11/2021 11:00 EDT documented in this encounter Results * LEUKEMIA/LYMPHOMA PANEL BY FLOW CYTOMETRY (12/11/2021 11:00 EDT) Final Immunophenotypic Interpretation Pleural fluid, flow cytometric analysis: - No immunophenotypic evidence of a clonal cell population. See comment. 2 10:12 [facility] Comment The cytospin from the tube is acellular and non-diagnotic. However, the flow study reveals adequately labor representative numbers of lymphocytes. The results of flow cytometry show no immunophenotypic evidence of involvement by a clonal lymphoproliferativ e. 2 10:12 [facility] Attestation By the signature below, the attending physician certifies that they have 1) personally conducted a gross and/or microscopic examination of the described specimen(s), and/or personally interpreted the results of laboratory testing of the described specimen(s), and 2) personally rendered or confirmed the above diagnosis. 2 10:12 [facility] at 1012 Clinical History 70 yo male with pleural effusion. 2 10:12 [facility] Description Morphology of a cytospin slide prepared from the sample has been reviewed. The specimen consists of pleural fluid that has been prepared using ammonium chloride lysing agent. Gating is performed using CD45 fluorescence and side scatter. Cellular viability (assessed by 7-AAD exclusion) is excellent (99%) among cells with CD45 and side scatter properties typical of lymphocytes and excellent (99%) among CD45+ events overall. Scatter plots incorporating all of the markers have been interpreted and evaluated for the presence or absence of abnormal cell populations. Only pertinent abnormal findings are included. If not otherwise addressed all other markers were normal/negative. A majority of the lymphoid cells are T-lymphocytes (CD3+CD5+) with CD4+ and CD8+ subsets represented in normal ratio. The remaining lymphocytes are B-lymphocytes (CD19+CD20+). Among the B-cells, both kappa+ and lambda+ subsets are represented in normal ratio. The remainder of the CD45+ events is predominantly of myeloid lineage. There are no blasts. 2 10:12 [facility] Flow Markers CD10, CD19, CD20, CD3, CD4, CD45, CD5, CD8, [place], and Lambda 2 10:12 [facility] FDA Disclaimer This test was developed and its performance characteristics determined by the Department of Pathology and Laboratory Medicine, [place], [place] It has not been cleared or approved by the U.S. Food and Drug Administration. FDA does not require this test to go through premarket FDA review. This test is used for clinical purposes. It should not be regarded as investigational or for research. This laboratory is certified under the Clinical Laboratory Improvement Amendments (CLIA) as qualified to perform high complexity clinical laboratory testing. 2 10:12 [facility] Sample Analyzed Date and Time 12/12/2021 1115 2 10:12 [facility] Scanned Images 2 10:12 [facility] ZZUNK PLEURAL FLUID / Unknown 12/11/2021 11:00 EDT 12/12/2021 8:18 EDT Josephine Sotomayor MD PATHOLOGY ORDERABLES [facility] [address] [place] [address] documented in this encounter Visit Diagnoses Diagnosis Pleural effusion, not elsewhere classified Malignant neoplasm of unspecified part of left bronchus or lung (HCC-CMS) documented in this encounter Care Teams Skilled Helper Relationship Specialty Start Date End Date Tami Olivia [address] [place] [id number] PCP - General 12/04/19 documented as of this encounter
--- OUTSIDE RECORDS SUMMARY | 2023-12-11 17:37 | XMS_ITS | Referral Summary ---
Author Organization [facility] Address [address] [place] [address] Care Team Providers Care Junior Assistant Manager Name Role Phone Tami Olivia Primary Care Provider [phone] Allergies Active Allergy Reactions Criticality Noted Date Comments Cat Dander 12/07/2020 Runny eyes and nose Dog Dander 12/07/2020 Runny eyes and nose Medications Medication Sig Dispensed Refills Start Date End Date Status albuterol 90 mcg/actuation inhaler 2 puff(s) inhaled 4 times a day Active aspirin 81 mg EC tablet 1 tab(s) orally once a day Active buPROPion (WELLBUTRIN XL) 150 mg XL tablet 1 tab(s) orally every 24 hours Active fluticasone furoate-vilanteroL 100-25 mcg/dose blister with device 1 puff(s) inhaled once a day Active lisinopriL (PRINIVIL) 20 mg tablet 1 tab(s) orally once a day Active omeprazole (PRILOSEC) 20 mg capsule 1 cap(s) orally once a day Active TAMSulosin (FLOMAX) 0.4 mg capsule every 24 hours. Activ e ergocalciferol, vitamin D2, (VITAMIN D ORAL) 1 Tablet daily. 1 tab daily Active SPIRIVA RESPIMAT 2.5 mcg/actuation inhalation mist 01/26/2022 Active metoprolol SUCCinate (TOPROL-XL) 25 mg tablet Take 25 mg by mouth daily. 03/11/2022 Active amiodarone (PACERONE) 200 mg tablet Take 200 mg by mouth daily. 03/05/2022 Active sildenafil citrate (VIAGRA) 50 mg tablet TAKE 1/2 TO 1 TABLET BY MOUTH 30 MINUTES PRIOR TO SEXUAL ACTIVITY NEEDED. MAXIMUM DAILY DOSE 2 10/09/2021 Active rivaroxaban (XARELTO) 20 mg tablet tablet Take 20 mg by mouth daily. Active acetaminophen (TYLENOL) 500 mg tablet Take 1,000 mg by mouth every 6 hours. 02/10/2022 Active hydroxychloroquine (PLAQUENIL) 200 mg tabletIndications:RS 3PE syndrome TAKE 1 TABLET BY MOUTH ONCE DAILY 90 Tablet 3 05/08/2023 Active Active Problems Problem Noted Date Diagnosed Date Lupus anticoagulant positive 11/05/2019 Unspecified osteoarthritis, unspecified site Palpitations 11/05/2019 COPD (chronic obstructive pulmonary disease) ([facility]) 11/05/2019 ADHD 11/05/2019 Depression 11/05/2019 Tobacco abuse 11/05/2019 Social History Tobacco Use Types Packs/Day Years Used Date Smoking Tobacco: Every Day Cigarettes 0.5 59.8 Started: 1965 Smokeless Tobacco: Never Tobacco Cessation:Ready to Q uit: Not Asked; Counseling Given: Not Answered Comments:decreasing his intake 1ppd down to 10 cigaretts daily Alcohol [...] 8:00 EDT Sexual Orientation Not on file Last Filed Vital Signs Vital Sign Reading Time Taken Comments Blood Pressure 106/64 04/20/2022 1130 EST Pulse 92 04/20/2022 1130 EST Temperature 36.3 ??C (97.3 ??F) 04/20/2022 1130 EST Respiratory Rate 18 12/07/2020 1319 EDT Oxygen Saturation 97% 12/07/2020 1319 EDT Inhaled Oxygen Concentration - - Weight 70.3 kg (155 lb) 04/20/2022 1130 EST Height 173.4 cm (5' 8.25) 04/20/2022 1130 EST Body Mass Index 23.4 04/20/2022 1130 EST Functional Status Functional Status Response Date of [...] concentrating, remembering, or making decisions? No 12/04/2019 Plan of Treatment Not on file Care Teams Junior Assistant Manager Relationship Specialty Start Date End Date Tami Olivia [address] [place] [id number] PCP - General 12/04/19
--- OUTSIDE RECORDS SUMMARY | 2023-12-11 17:37 | XMS_ITS | Encounter Summary ---
Author Organization [facility] Address [address] [place] [address] Care Team Providers Care Consumer Product Advisor Name Role Phone Tami Olivia Primary Care Provider [phone] Encounter Details Date Type Department Care Team (Late st Contact Info) Description 12/06/2021 Lab Requisition [facility] Pathology & Laboratory Medicine - [facility] [address] [place] [address] Outr Resulting Lab, Provider Social History Tobacco Use Types Packs/Day Years [...] Procedure Name Priority Date/Time Associated Diagnosis Comments QUANTIFERON MITOGEN (PERFORMABLE) Today 12/05/2021 13:56 EDT QUANTIFERON TB2 (PERFORMABLE) Today 12/05/2021 13:56 EDT QUANTIFERON TB1 (PERFORMABLE) Today 12/05/2021 13:56 EDT QUANTIFERON NIL (PERFORMABLE) Today 12/05/2021 13:56 EDT QUANTIFERON INTERPRETATION (PERFORMABLE) Today 12/05/2021 13:56 EDT QUANTIFERON TB GOLD PLUS Routine 12/05/2021 13:56 EDT documented in this encounter Results * QUANTIFERON INTERPRETATION (PERFORMABLE) (12/05/2021 13:56 EDT) [facility] Quantiferon Interpretation Negative Negative 12/07/2021 9:59 EDT [facility] Comment:No interferon-gamma response to M. tuberculosis antigens was detected. ??Infection with M. tuberculosis is unlikely. A single negative result does not exclude infection with M. tuberculosis. ??In patients at high risk for M. tuberculosis infection, a second test should be considered. TB1 Ag minus Nil 0.01 IU/ml 12/08/19 22 9:59 EDT [facility] TB2 Ag minus Nil 0.01 IU/mL 12/08/19 9:59 EDT [facility] Blood VENOUS BLOOD / Unknown 12/05/2021 13:56 EDT 12/07/2021 9:55 EDT Narrative [facility] - 12/07/2021 9:59 EDT Results were obtained with the [employer] QuantiFERON-TB Gold Plus CLIA. New platform in use 11/16/2020 Provider Outr Resulting Lab IMMUNOLOGY A ND SEROLOGY ORDERABLES [facility] [address] [place] [address] * QUANTIFERON MITOGEN (PERFORMABLE) (12/05/2021 13:56 EDT) Blood VENOUS BLOOD / Unknown 12/05/2021 13:56 EDT 12/06/2021 16:51 EDT Provider Outr Resulting Lab IMMUNOLOGY A ND SEROLOGY ORDERABLES Performing Organization Address [facility] Co de Phone Number [facility] [address] [place] [address] * QUANTIFERON TB2 (PERFORMABLE) (12/05/2021 13:56 EDT) Blood VENOUS BLOOD / Unknown 12/05/2021 13:56 EDT 12/06/2021 16:51 EDT Provider Outr Resulting Lab IMMUNOLOGY A ND SEROLOGY ORDERABLES Performing Organization Address [facility] Co de Phone Number [facility] [address] [place] [address] * QUANTIFERON TB1 (PERFORMABLE) (12/05/2021 13:56 EDT) Blood VENOUS BLOOD / Unknown 12/05/2021 13:56 EDT 12/06/2021 16:51 EDT Provider Outr Resulting Lab IMMUNOLOGY A ND SEROLOGY ORDERABLES Performing Organization Address [facility] Co de Phone Number [facility] [address] [place] [address] * QUANTIFERON NIL (PERFORMABLE) (12/05/2021 13:56 EDT) Blood VENOUS BLOOD / Unknown 12/05/2021 13:56 EDT 12/06/2021 16:51 EDT Provider Outr Resulting Lab IMMUNOLOGY A ND SEROLOGY ORDERABLES Performing Organization Address [facility] Co de Phone Number [facility] [address] [place] [address] documented in this encounter Visit Diagnoses Not on filedocumented in this encounter Care Teams Consumer Product Advisor Relationship Specialty Start Date End Date Tami Olivia [address] [place] [id number] PCP - General 12/04/19 documented as of this encounter
--- OUTSIDE RECORDS SUMMARY | 2023-12-11 17:37 | XMS_ITS | Encounter Summary ---
Author Organization [facility] Address [facility] [place] [address] Care Team Providers Care Riveter Helper Name Role Phone Tami Olivia Primary Care Provider [phone] Reason for Visit * Diagnostic Test (Routine) - Specialty Diagnoses / Procedures Referred By Bert gautam Referred To Contact Radiology Diagnoses Mass of upper lobe of left lung Pre-operative cardiovascular examination, high risk surgery Procedures NM Exercise Stress and Rest Myocardial Perfusion Gilmer Gutiérrez MD [facility] [place] [address] [facility] [place] [address] Referral ID Status Reason Start Date Expiration Date Visits Requested Visits Authorized [id number] Specialty Service Requested 02/09/2021 03/26/2021 4 4 Encounter Details Date Type Department Care Team (Latest Contact Info) Description 02/13/2021 10:03 AM EST - 02/13/2021 12:[address] [facility] Hospital [place] [phone] Gilmer Gutiérrez MD [facility] [place] [address] Discharge Disposition: Home Social History Tobacco Use [...] Procedure Name Priority Date/Time Associated Diagnosis Comments NM EXERCISE STRESS AND REST MYOCARDIAL PERFUSION Routine 02/13/2021 11:47 AM EST Mass of upper lobe of left lung Pre-operative cardiovascular examination, high risk surgery documented in this encounter Results * NM Exercise Stress and Rest Myocardial Perfusion (02/13/2021 11:47 AM EST) Anatomical Region Laterality Modality Nuclear Medicine Impressions 02/13/2021 3:29 PM EST Normal perfusion imaging. No ischemia or scar. ??Left ventricular function is normal. Preliminary report signed by: Ramon Nielsen at 02/13/2021 3:11 PM I have personally reviewed the image(s) and the resident's interpretation and agree with the findings, DARIO GOLDSMITH MD at 02/13/2021 3:29 PM Thank you for letting us participate in the care of this patient. ??If you are a health care provider and have any questions regarding this report, please contact the number below. ??For patients who have questions please contact the health health care coach that requested your imaging first. ? Electronically signed by: DARIO GOLDSMITH MD, [facility] ([phone]), at 02/13/2021 3:29 PM Narrative 02/13/2021 3:29 PM EST EXAMINATION: NM EXERCISE STRESS AND REST MYOCARDIAL PERFUSION CLINICAL HISTORY: 70 y/o with PMH of HTN, COPD, CAD, tobacco use, IDDM who was discovered to have a 2.8 cm spiculated nodule in the upper lobe of the left lung, in need of cardiac evaluation prior to high risk thoracic surgery TECHNIQUE: During rest, 7.8 mCi of technetium-99 sestamibi were administered intravenously. Approximately 15 minutes later, SPECT images of the heart were obtained with reconstruction in the short, vertical long and horizontal long axes. The patient was then exercised to 4.6 METS to a peak heart rate of 187 bpm which is 125 % of the maximum predicted heart rate. ??26.3 mCi of technetium-99m sestamibi was then administered intravenously and the patient was exercised for one and one half additional minutes. Images of the heart were then again obtained with SPECT reconstruction. A low dose CT scan was acquired for the purpose of attenuation correction. Please see dedicated report for incidental CT findings COMPARISON: None FINDINGS: No fixed or reversible perfusion defects are present. Functional analysis: Myocardial function: There is normal wall motion and wall thickening. Left ventricular ejection fraction: 63 % (normal greater than 50%) Procedure Note Dario Goldsmith MD - 02/13/2021 EXAMINATION: NM EXERCISE STRESS AND REST MYOCARDIAL PERFUSION CLINICAL HISTORY: 70 y/o with PMH of HTN, COPD, CAD, tobacco use, IDDM whowas discovered to have a 2.8 cm spiculated nodule in the upper lobe of theleft lung, in need of cardiac evaluation prior to high risk thoracic surgery TECHNIQUE: During rest, 7.8 mCi of technetium-99 sestamibi wereadministered intravenously. Approximately 15 minutes later, SPECT images of the heartwere obtained with reconstruction in the short, vertical long and horizontallong axes. The patient was then exercised to 4.6 METS to a peak heart rate of 187 bpmwhich is 125 % of the maximum predicted heart rate. 26.3 mCi oftechnetium-99m sestamibi was then administered intravenously and the patient wasexercised for one and one half additional minutes. Images of the heart were then again obtained with SPECT reconstruction. A low dose CT scan was acquired for the purpose of attenuationcorrection. Please see dedicated report for incidental CT findings COMPARISON: None FINDINGS: No fixed or reversible perfusion defects are present. Functional analysis: Myocardial function: There is normal wall motion and wall thickening. Left ventricular ejection fraction: 63 % (normal greater than 50%) IMPRESSION Normal perfusion imaging. No ischemia or scar. Left ventricular function is normal. Preliminary report signed by: Ramon Nielsen at 02/13/2021 3:11 PM I have personally reviewed the image(s) and the resident's interpretationand agree with the findings, DARIO GOLDSMITH MD at 02/13/2021 3:29 PM Thank you for letting us participate in the care of this patient. If youare a health care provider and have any questions regarding this report,please contact the number below. For patients who have questions please contactthe health health care coach that requested your imaging first. Electronically signed by: DARIO GOLDSMITH MD, [facility]([phone]), at 02/13/2021 3:29 PM Gilmer Gutiérrez MD IMG NM ORDERABLE S documented in this encounter Visit Diagnoses Not on filedocumented in this encounter Administered Medications Inactive Administered Medications - up to 3 most recent administrations Medication Order MAR Action Action Date Dose Rate Site technetium (Tc-99m) sestamibi injection 0-30 mCi 0-30 mCi, Intravenous, 2 TIMES DAILY PRN, 2 doses, Starting on Sat02/13/21 at 1025, Until Sat02/13/21 at 1140, Per Protocol, Radiology Contrast, Routine Given 02/13/2021 11:40 AM EST 26.3 mCi Given 02/13/2021 10:20 AM EST 7.8 mCi documented in this encounter Care Teams Riveter Helper Relationship Specialty Start Date End Date Tami Olivia [address] [place] [address] PCP - General Family Medicine 12/30/20 documented as of this encounter
--- OUTSIDE RECORDS SUMMARY | 2023-12-11 17:37 | XMS_ITS | Encounter Summary ---
Author Organization [facility] [place] [address] Care Team Providers Care Developer Trading Systems Name Role Phone Tami Olivia Primary Care Provider Encounter Details Date Type Department Care Team (Late st Contact Info) Description 01/23/2021 [facility]phone [facility] [place] [address] Anali Benítez Social History Tobacco Use Types Packs/Day Years [...] on filedocumented in this encounter Care Teams Developer Trading Systems Relationship Specialty Start Date End Date Tami Olivia [address] [place] [address] PCP - General Family Medicine 12/30/20 documented as of this encounter
--- OUTSIDE RECORDS SUMMARY | 2023-12-11 17:37 | XMS_ITS | Encounter Summary ---
Author Organization [facility] Address [address] [place] [address] Care Team Providers Care Gold And Silver Assayer Name Role Phone Tami Olivia Primary Care Provider [phone] Reason for Visit * Reason Comments Medications Refill Encounter Details Date Type Department Care Team (Late st Contact Info) Description 04/09/2023 Refill [facility] Rheumatology [address], [place] [id number] Mena Ng MD [address] [facility] [address] [place] [address] Medications Refill Social History Tobacco Use Types Packs/Day Years [...] No 12/04/2019 documented as of this encounter Ordered Prescriptions Prescription Sig Dispensed Refills Start Date End Da te hydroxychloroquine (PLAQUENIL) 200 mg tabletIndications:RS3PE syndrome TAKE 1 TABLET BY MOUTH ONCE DAILY 90 Tablet 3 04/10/2023 05/08/2023 documented in this encounter Miscellaneous Notes * Telephone Encounter - Vanessa Luevano RN - 04/10/2023 0942 EST Last visit note reviewed and follow-up visit as recommended. Eye exam up to date. Refill for Plaquenil sent per protocol. documented in this encounter Plan of Treatment Not on file documented as of this encounter Visit Diagnoses Diagnosis RS3PE syndrome- Primary Polymyalgia rheumatica documented in this encounter Discontinued Medications Medication Sig Discontinue Reason Start Date End Da te hydrOXYchloroQUINE (PLAQUENIL) 200 mg tabletIndications:RS3PE syndrome TAKE 1 TABLET BY MOUTH DAILY 04/20/2022 04/10/2023 documented as of this encounter Care Teams Gold And Silver Assayer Relationship Specialty Start Date End Date Tami Olivia [address] [place] [address] PCP - General 12/04/19 documented as of this encounter
--- OUTSIDE RECORDS SUMMARY | 2023-12-11 17:37 | XMS_ITS | Encounter Summary ---
Author Organization [facility] Address [address] [place] [address] Care Team Providers Care Synchro Assembler Name Role Phone Tami Olivia Primary Care Provider [phone] Reason for Visit * Reason Comments Follow-up RS3PE syndrome Encounter Details Date Type Department Care Team (Late st Contact Info) Description 12/07/2020 13:15 EDT Office Visit [facility] [address] [place] [address] Mena Ng MD [address] [facility] [address] [place] [id number] RS3PE syndrome (Primary Dx) Social History Tobacco Use Types Packs/Day Years Used Date Smoking Tobacco: Every Day Cigarettes 0.5 59.8 Started: 1965 Smokeless Tobacco: Never Tobacco Cessation:Ready to Q uit: Yes Comments:decreasing his intake 1ppd down to 10 [...] Sign Reading Time Taken Comments Blood Pressure 172/82 12/07/2020 1319 EDT Pulse 66 12/07/2020 1319 EDT Temperature 36.2 ??C (97.2 ??F) 12/07/2020 1319 EDT Respiratory Rate 18 12/07/2020 1319 EDT Oxygen Saturation 97% 12/07/2020 1319 EDT Inhaled Oxygen Concentration - - Weight 91.3 kg (201 lb 3.2 oz) 12/07/2020 1319 E DT Height 173.4 cm (5' 8.25) 12/07/2020 1319 EDT Body Mass Index 30.37 12/07/2020 1319 EDT documented in this encounter Functional Status Functional Status Response [...] No 12/04/2019 documented as of this encounter Patient Instructions * Patient Instructions* Mena Ng MD - 12/07/2020 13:15 EDT Reduce the hydroxychloroquine to 1 pill a day Eye exam recommended once a year Call if flare ups Good job cutting on cigarettes documented in this encounter Ordered Prescriptions Prescription Sig Dispensed Refills Start Date End Da te hydrOXYchloroQUINE (PLAQUENIL) 200 mg tabletIndications:RS3PE syndrome 1 tab daily 90 Tablet 3 12/07/2020 10/16/2021 hydrOXYchloroQUINE (PLAQUENIL) 200 mg tablet 1 tab daily 90 Tablet 3 12/07/2020 12/07/2020 documented in this encounter Progress Notes * Mena Ng MD - 12/07/2020 1315 EDT Division of Rheumatology and Clinical Immunology Chief Complaint Patient presents with ??? Follow-up RS3PE syndrome Rheumatology problem list Tobacco abuse PMR -?RS3PE -Dr Riddle -RF neg -CCP neg -hydroxychloroquine ADHD COPD HPI: Doing well. Last visit with ophthalmology was when he had cataract surgery, thinks this was a couple years ago.Has not made an appointment for Plaquenil screening. No adverse effects from Plaquenil. No flareups of hand pain or stiffness. Was paddling in his kayak and active outdoors all summer. Feels well. Open to decreasing his dose of hydroxychloroquine. Endorses no painful or swollen joints or flareups. Blood pressure up just a bit today, however, was entirely normal last week when he saw his primary. Working to quit smoking. Down to 10 cigarettes a day. Has patches and nicotine gum which are helpful. His home partner smokes, she is also trying to quit. Denies skin rash sun sensitivity vision changes nausea or other side effects from meds or other systemic concerns at this time. Weight has been stable. Allergies include: Cat dander and Dog dander Current Outpatient Medications Medication ??? albuterol 90 mcg/actuation inhaler ??? aspirin 81 mg EC tablet ??? buPROPion (WELLBUTRIN XL) 150 mg XL tablet ??? ergocalciferol, vitamin D2, (VITAMIN D ORAL) ??? fluticasone furoate-vilanteroL 100-25 mcg/dose blister with device ??? hydrOXYchloroQUINE (PLAQUENIL) 200 mg tablet ??? lisinopriL (PRINIVIL) 20 mg tablet ??? omeprazole (PRILOSEC) 20 mg capsule ??? TAMSulosin (FLOMAX) 0.4 mg capsule No current facility-administered medications for this visit. Past Medical History: Diagnosis Date ??? Conductive hearing loss, bilateral ROS Negative except as in hpi. PHYSICAL EXAMINATION: BP (!) 172/82 (BP Cuff Location: Right arm, BP Patient Position: Sitting, BP Cuff Sizes: Adult, long) Pulse 66 Temp 36.2 ??C (97.2 ??F) Resp 18 Ht 173.4 cm (68.25) Wt 91.3 kg (201 lb 3.2 oz) SpO2 97% BMI 30.37 kg/m?? Physical Exam Vitals and nursing note reviewed. Constitutional: Appearance: Normal appearance. HENT: Head: Normocephalic and atraumatic. Nose: Nose normal. Cardiovascular: Rate and Rhythm: Normal rate and regular rhythm. Pulmonary: Effort: Pulmonary effort is normal. Breath sounds: Normal breath sounds. Musculoskeletal: Cervical back: Normal range of motion. Comments: No synovitis bilateral hands. Slight hyperextension right fourth PIP elbows and shouldersunremarkable. Right hip externally rotated minimal tenderness. Skin: General: Skin is warm and dry. Neurological: General: No focal deficit present. Mental Status: He is alert and oriented to person, place, and time. Psychiatric: Mood and Affect: Mood normal. ASSESSMENT AND PLAN Patient is a 69-year-old gentleman with a history of RS 3 PE, bilateral hand pain. Patient doing well. No flareup of synovitis or joint pain -Reduce hydroxychloroquine to 200 mg daily -Return appointment 1 year if doing well at that time could explore the possibility of discontinuing hydroxychloroquine altogether. -Reviewed that patient should contact me for any flareup of symptoms High risk medication -He had an eye exam prior to cataract surgery couple of years ago -Encouraged him to organize to ensure that he has a hydroxychloroquine screening -Reviewed need for regular eye exams, year 1, 5 years later and then annually. Impressions, diagnosis, treatment plan were reviewed. Patient questions and concerns were reviewed and answered. Patient agreeable to plan of care and will call if any addition concerns or questions arise. Mena Ng MD 12/07/2020 13:28 documented in this encounter Plan of Treatment Not on file documented as of this encounter Visit Diagnoses Diagnosis RS3PE syndrome- Primary Polymyalgia rheumatica documented in this encounter Discontinued Medications Medication Sig Discontinue Reason Start Date End Da te aspirin (ADULT LOW DOSE ASPIRIN) 81 mg EC tablet every 24 hours. Duplicate order 021 calcium carbonate-vitamin D3 600 mg(1,500mg) -800 unit tablet 1 tab(s) orally once daily Duplicate order 12/07/2020 hydrOXYchloroQUINE (PLAQUENIL) 200 mg tablet TAKE 2 TABLETS ORALLY ONCE A DAY Order modification 08/12/2020 12/07/2020 hydrOXYchloroQUINE (PLAQUENIL) 200 mg tablet 1 tab daily Reorder 12/07/2020 12/07/2020 documented as of this encounter Historical Medications * This list may reflect changes made after this encounter. Medication Sig Dispensed Refills Start Date End Date ergocalciferol, vitamin D2, (VITAMIN D ORAL) 1 Tablet daily. 1 tab daily TAMSulosin (FLOMAX) 0.4 mg capsule every 24 hours. aspirin (ADULT LOW DOSE ASPIRIN) 81 mg EC tablet every 24 hours. 12/07/2020 added in this encounter Care Teams Synchro Assembler Relationship Specialty Start Date End Date Tami Olivia [address] [place] [id number] PCP - General 12/04/19 documented as of this encounter
--- OUTSIDE RECORDS SUMMARY | 2023-12-11 17:37 | XMS_ITS | Encounter Summary ---
Author Organization [facility] Address [address] [place] [address] Care Team Providers Care Broadband Engineer Name Role Phone Tami Olivia Primary Care Provider [phone] Encounter Details Date Type Department Care Team (Late st Contact Info) Description 06/25/2022 Lab Requisition [facility] Pathology & Laboratory Medicine - [place] [address] [place] [address] Mandeep Licona, [address] [place] [address] Neoplasm of unspecified behavior of bone, soft tissue, and skin Social History Tobacco Use Types Packs/Day Years [...] Procedure Name Priority Date/Time Associated Diagnosis Comments SURGICAL PATHOLOGY Today 06/22/2022 13 :20 EDT Neoplasm of unspecified behavior of bone, soft tissue, and skin documented in this encounter Results * SURGICAL PATHOLOGY (06/22/2022 13:20 EDT) Note to Patient The following pathology results have been interpreted by your pathologist and may be available to you before your health provider has had the opportunity to review them. Please allow time for your provider to receive these results and explore management options, if applicable. 06/26/2022 15:23 [facility] Final Diagnosis A. SKIN OF SCALP, LEFT ANTERIOR, SHAVE BIOPSIES: - Seborrheic keratosis, pigmented. 06/26/2022 15:23 [facility] Attestation By the signature below, the attending physician certifies that they have 1) personally conducted a gross and/or microscopic examination of the described specimen(s), and/or personally interpreted the results of laboratory testing of the described specimen(s), and 2) personally rendered or confirmed the above diagnosis. 06/26/2022 15:23 [facility] at 1523 Clinical History Clinical diagnosis code: D49.2 06/26/2022 15:23 [facility] Gross Description A. Received in formalin labelled with proper patient identification (initials D, M) and left anterior scalp are 2 irregular shave biopsies of transparent serrato-white to reticulated brown-emerson skin (1.4 x 1.1 by less than 0.1 cm and 1.2 x 0.4 by less than 0.1 cm). The margins are inked blue. The larger tissue is trisected and entirely submitted in A1 and the smaller tissue is submitted intact in A2. Kelin Aleisha 06/26/2022 7:48 06/26/2022 15:23 EDT [facility] Performing Lab [facility] 06/26/2022 15:23 EDT [facility] Scanned Images 06/26/2022 15:23 EDT [facility] Tissue TISSUE SPECIMEN FROM SKIN / Unknown 06/22/2022 13:20 EDT 06/25/2022 21:37 EDT Mandeep Licona DO PATHOLOGY ORDER [facility] [address] [place] [address] documented in this encounter Visit Diagnoses Diagnosis Neoplasm of unspecified behavior of bone, soft tissue, and skin documented in this encounter Care Teams Broadband Engineer Relationship Specialty Start Date End Date Tami Olivia [address] [place] [address] PCP - General 12/04/19 documented as of this encounter
--- OUTSIDE RECORDS SUMMARY | 2023-12-11 17:37 | XMS_ITS | Encounter Summary ---
Author Organization [facility] Address [facility] [place] [address] Care Team Providers Care Utility Spray Operator Name Role Phone Tami Olivia Primary Care Provider [phone] Reason for Visit * Diagnostic Test (Routine) - Closed Specialty Diagnoses / Procedures Referred By Bert gautam Referred To Contact Radiology Diagnoses Mass of upper lobe of left lung Pre-operative cardiovascular examination, high risk surgery Procedures NM PET CT Skull Base to Mid-thigh Gilmer Gutiérrez MD [facility] [address] TH[place]AC[place] [address] [facility] [place] [address] Referral ID Status Reason Start Date Expiration Date V isits Requested Visits Authorized [id number] Closed Specialty Service Requested 01/27/2021 03/13/2021 1 1 Encounter Details Date Type Department Care Team (Latest Contact Info) Description 02/10/2021 8:42 AM EST - 02/10/2021 11:59 PM [facility] Encounter [place] [phone] Gilmer Gutiérrez MD [facility] [address] THORACIC [place] [address] Discharge Disposition: Home Social History [...] Take 1 tablet by mouth daily. 11/01/2014 lisinopriL (Zestril) 5 mg Tablet Take 10 [...] Name Priority Date/Time Associated Diagnosis Comments NM PET CT SKULL BASE TO MID-THIGH ([facility]) Routine 02/10/2021 10:29 AM EST Mass of upper lobe of left lung Pre-operative cardiovascular examination, high risk surgery POCT GLUCOSE Routine 02/10/2021 9:13 AM EST documented in this encounter Results * POCT Glucose (02/10/2021 9:13 AM EST) Glucose, POC 90 65 - 199 mg/dL [facility] Comment: Supplemental ranges: <140 mg/dL before meals <180 mg/dL all other times of the day Blood 02/10/2021 9:13 AM EST 02/10/2021 9:13 AM EST Gilmer Gutiérrez MD POINT OF CARE TE ST ORDERABLES [facility] [place] [address] documented in this encounter Visit Diagnoses Not on filedocumented in this encounter Care Teams Utility Spray Operator Relationship Specialty Start Date End Date Tami Olivia [address] [place] [address] PCP - General Family Medicine 12/30/20 documented as of this encounter
--- OUTSIDE RECORDS SUMMARY | 2023-12-11 17:37 | XMS_ITS | Encounter Summary ---
Author Organization [facility] [place] [address] Care Team Providers Care Nursing Staff Development Coordinator Name Role Phone Tami Olivia Primary Care Provider [phone] Encounter Details Date Type Department Care Team (Late st Contact Info) Description 01/17/2021 Notes [place] [address] Anali Benítez Social History Tobacco Use Types Packs/Day Years Used Date Smoking Tobacco: Every Day Cigarettes 2 50 Smokeless Tobacco: Never Comments:1 ppd for the past year Sex and Gender Information Value Date Recorded Sex Assigned at Not on file Gender Identity Not on file Sexual Orientation Not on file documented as of this encounter Progress Notes * Anali Benítez - 01/17/2021 4:53 PM EST .. Anali Benítez, [place]TT[place] [address] [email or web address] HPI: Rajan Marquez is a 70 y.o. male who is being seen today for tobacco cessation. Date: 01/17/2021 Name: Rajan Marquez Date of : 1950 There are no problems to display for this patient. Past Medical History: Diagnosis Date ??? BPH (benign prostatic hyperplasia) ??? COPD (chronic obstructive pulmonary disease) ??? Coronary artery disease ??? GERD (gastroesophageal reflux disease) ??? Hypertension ??? Synovitis Past Surgical History: Procedure Laterality Date ??? APPENDECTOMY Current Outpatient Medications on File Prior to Visit Medication Sig Dispense Refill ??? lisinopriL (Zestril) 5 mg Tablet Take [...] facility-administered medications on file prior to visit. Not on File Social History Tobacco Use ??? Smoking status: Current Every Day Smoker Packs/day: 2.00 Years: 50.00 Pack years: 100.00 ??? Smokeless tobacco: Never Used ??? Tobacco comment: 1 ppd for the past year Substance Use Topics ??? Alcohol use: Not on file Family History Problem Relation Age of Onset ??? Myocardial Infarction Father Type of tobacco used: () Smokeless tobacco () e-cigarette (X) Cigarettes Brand currently smoking: pickens Current amount: 1ppd Age initiated: 10yrs Years smoked: 59 Previous quit attempts and methods: quit for 2 months Most recent quit attempt: ? Are there other smokers in the home: yes Are there children in the home: no What will be different this time:has to quit Positive aspects of smoking: relaxing Negative aspects of smoking: health reasons, money Reasons for quitting:health Concerns about quitting:no Concerns about weight gain: no Triggers for smoking: meals, driving Ready to set a quit date: soon Readiness: Importance scale: 10 Confidence scale: 6 Support systems include: Stage of Change: Precontemplation: Contemplation: Preparation:X Action: Maintenance: NICOTINE DEPENDENCE 0 Points 1Points 2 Points 3 Points Score 1.How soon after waking do you smoke your first cigarette? After 60 minutes 31- 60 minutes minutes 6-30 minutes Within 5 minutes 3 2. Do you find it difficult to refrain from smoking in places where it is forbidden? (ex. spiritism) No Yes 0 3. Which cigarette would you hate to give up? All others The first one in the morning 1 4. How many cigarette do you smoke a day? 10 or less 11-20 21-30 30 or more 0 Do you smoke more frequently during the first hour after waking than the rest of the day? No Yes 1 6. Do you smoke if you are so ill that you are in bed all day? 0 Classification: 5 Moderate 0-2 Very low 3-4 Low 5 Moderate 6-7 High 8-10 Very high Assessment/Plan: Mr. Marquez has a Fagerstrom Score of 5 indicating a moderate dependence on Nicotine.I reviewed the physiology of addiction as well as apparent health risks specific to the patient. I discussed the options for treatment including NRT, Zyban and Chantix. I reviewed possible side effects of therapy. I stressed that medication alone is not optimum but used in conjunction with behavioral counseling will add to success for cessation. The patient decided that the best course of action is to try the nicotine patches. I reviewed the correct way to use the Nicotine patch, changing the place where it is put it on the skin daily, and proper disposal, to keep it out of reach of children or pets. I warned that some patients experience vivid dreams on the patch and instructed that if this were to happen the patch should be removed at bedtime and replaced each morning. The patient should be sure to leave a nicotine lozenge at the bedside to use first thing every morning. The patient will be on 21 mg patch for two weeks or as long as necessary to reduce urges.If at any point after tapering the patient has an increased craving they should go back to the higher dose foranother two weeks then try to decrease again. I instructed Mr. Randolph the correct use of the Nicotine lozenge and explained that the nicotine would be absorbed through the mucous membranes of the mouth, at a specific pH or acidity. Therefore they should not eat or drink anything except water for 15 minutes before or during use of the lozenge or the nicotine would not be absorbed and the medication won't help . The patient understands it should not be chewed or swallowed whole or in pieces. The maximum number of lozenges to be used in a dayis 20. Most people who use the Nicotine patch plus lozenges generally use about 4-5 lozenges a day.The patient has been instructed to use the lozenge upon awakening, 30 minutes before meals and at bedtime at a minimum. It can also be used every 1-2 hours in between. The lozenge should be used whenthere is a strong urge to smoke, instead of smoking. I reviewed several tips for helping with quitting including the 4 D's, using straws cut the length of cigarettes, cinnamon sticks, flavored toothpicks, sugar free candy, etc. We discussed the importance of exercise, especially walking. The patient has been provided with a [facility] Smoking Cessation packet. The patient has my card with mycontact information and has been encouraged to call with additional questions or concerns. The patient also has the Quit line number and the smokefree txt information. Patient has been advised to contact me if any unusual symptoms occur. A follow up clinic appointment has been made for Tuesday 01/23 CO Monitor Reading First Visit 13Subsequent visit I also discussed the meaning of elevated CO measurements and explained that this level would returnto normal within 24-48 hours of quitting smoking. Next steps: Anali Benítez 01/17/21 Tobacco Treatment Program [facility] documented in this encounter Plan of Treatment Scheduled Procedures Name Priority Associated Diagnoses Date/Ti me ELECTROPHYSIOLOGY PROCEDURE Persistent atrial fibrillation CARDIOVERSION-ELECTIVE (WRVU 2) persistent atrial fibrillation TRANSESOPHAGEAL ECHOCARDIOGR AM (WRVU 2.3) persistent atrial fibrillation documented as of this encounter Visit Diagnoses Not on filedocumented in this encounter Care Teams Nursing Staff Development Coordinator Relationship Specialty Start Date End Date Tami Olivia [address] [place] [address] PCP - General Family Medicine 12/30/20 documented as of this encounter
--- OUTSIDE RECORDS SUMMARY | 2023-12-11 17:37 | XMS_ITS | Encounter Summary ---
Author Organization [facility] Address [address] [place] [address] Care Team Providers Care Regional Psychiatric Director Name Role Phone Tami Olivia Primary Care Provider [phone] Encounter Details Date Type Department Care Team (Late st Contact Info) Description 01/22/2022 Lab Requisition [facility] Pathology & Laboratory Medicine - [facility] [address] [place] [address] Gab Mejia MD [address] [place] [address] [address] [place], [place] [id number] Encounter for other general examination Social History Tobacco Use Types Packs/Day Years [...] Date/Time Associated Diagnosis Comments SURGICAL PATHOLOGY Today 01/22/2022 12 :00 EST Encounter for other general examination documented in this encounter Results * SURGICAL PATHOLOGY (01/22/2022 12:00 EST) Note to Patient The following pathology results have been interpreted by your pathologist and may be available to you before your health provider has had the opportunity to review them. Please allow time for your provider to receive these results and explore management options, if applicable. 01/23/2022 16:55 [facility] Final Diagnosis A. COLON, DESCENDING, POLYP, BIOPSY: - Tubular adenoma. B. COLON, ASCENDING, POLYPS X2, BIOPSY: - Tubular adenomas. 01/23/2022 16:55 [facility] Attestation By the signature below, the attending physician certifies that they have 1) personally conducted a gross and/or microscopic examination of the described specimen(s), and/or personally interpreted the results of laboratory testing of the described specimen(s), and 2) personally rendered or confirmed the above diagnosis. 01/23/2022 16:55 [facility] at 1655 Clinical History Hx of colon polyps 01/23/2022 16:55 [facility] Gross Description A. Received in formalin labelled with proper patient identification (initials D, M) and descending colon polyp are two serrato tissues (0.6 x 0.2 x 0.1 cm and 0.4 x 0.1 x 0.1 cm). Entirely submitted in A1. B. Received in formalin labelled with proper patient identification (initials D, M) and ascending colon polyp x2 are two serrato tissues (0.4 x 0.1 x 0.1 cm and 0.3 x 0.1 x 0.1 cm). Entirely submitted in B1. ISIDRA CHALOR 01/23/2022 5:43 01/23/2022 16:55 EST [facility] Performing Lab [facility] 01/23/2022 16:55 EST [facility] Scanned Images 01/23/2022 16:55 EST [facility] Tissue POLYP OF COLON / Unknown 01/22/2022 12:00 EST 01/22/2022 16:51 EST Tissue specimen (specimen) POLYP OF COLON / Unknown 01/22/2022 12:00 EST 01/22/2022 16:51 EST Gab Mejia MD PATHOLOGY ORDERA JOSIE [facility] [address] [place] [address] documented in this encounter Visit Diagnoses Diagnosis Encounter for other general examination documented in this encounter Care Teams Regional Psychiatric Director Relationship Specialty Start Date End Date Tami Olivia [address] [place], [place] [id number] PCP - General 12/04/19 documented as of this encounter
--- OUTSIDE RECORDS SUMMARY | 2023-12-11 17:37 | XMS_ITS | Encounter Summary ---
Author Organization [facility] Address [facility] [place] [address] Care Team Providers Care School Transportation Director Name Role Phone Unavailable Primary Care Provider Unavailabl e Encounter Details Date Type Department Care Team (Late st Contact Info) Description 09/18/2019 Ancillary Procedure Radiology Library at [facility] K[place]NN Bright [phone] Kasie Marcus MD [address] [place] [id number] Social History Tobacco Use Types Packs/Day Years Used Date Smoking Tobacco: Never Assessed Sex and Gender Information Value Date Recorded [...] FILM LIBRARY STORAGE ONLY CT CHEST Routine 09/18/2019 12:00 AM EDT documented in this encounter Results * Film Library- Storage Only CT Chest (09/18/2019 12:00 AM EDT) Narrative THU JIMENEZ - 12/30/2020 10:46 AM EDT This exam is auto-finalizing. It's purpose is for storage only. Kasie Marcus MD IMG FILM LIBRARY ORDERABLES [place]NN Hunt documented in this encounter Visit Diagnoses Not on filedocumented in this encounter
--- OUTSIDE RECORDS SUMMARY | 2023-12-11 17:37 | XMS_ITS | Encounter Summary ---
Author Organization [facility] Address [facility] [place] [address] Care Team Providers Care Heritage Consultant Name Role Phone Tami Olivia Primary Care Provider [phone] Encounter Details Date Type Department Care Team (Latest Contact Info) Description 02/13/2021 12:56 PM EST - 02/13/2021 11:59 PM EST Hospital Encounter Pulmonology at [facility] [place] [phone] Mass of upper lobe of left lung; Pre-operative cardiovascular examination, high risk surgery Discharge Disposition: Home Social History Tobacco [...] Scheduled Procedures Name Priority Associated Diagnoses Date/Ti oh ELECTROPHYSIOLOGY PROCEDURE Persistent atrial fibrillation CARDIOVERSION-ELECTIVE (WRVU 2) persistent atrial fibrillation TRANSESOPHAGEAL ECHOCARDIOGR AM (WRVU 2.3) persistent atrial fibrillation documented as of this encounter Procedures Procedure Name Priority Date/Time Associated Diagnosis Comments COMMON PULMONARY FUNCTION TEST Routine 02/13/2021 1:29 PM EST Mass of upper lobe of left lung Pre-operative cardiovascular examination, high risk surgery documented in this encounter Results * Pulmonary Function Testing (02/13/2021 1:29 PM EST) FVC Actual Pre-BD 4.33 L COMPAS PFT FVC Pre-BD % of Predicted 110 % COMPAS PFT FVC Predicted 3.94 L COMPAS PFT FVC Pre-BD Z-Score 0.62 COMPAS PFT FVC Lower Limits of Normal 2.91 L COMPAS PFT FEV1 Actual Pre-BD 3.45 L COMPAS PFT FEV1 Pre-BD % of Predicted 115 % COMPAS PFT FEV1 Predicted 2.99 L COMPAS PFT FEV1 Pre-BD Z-Score 0.95 COMPAS PFT FEV1 Lower Limits of Normal 2.15 L COMPAS PFT FEV1 / FVC Actual Pre-BD 80 % COMPAS PFT FEV1/FVC Pre-BD Z-Score 0.53 COMPAS PFT FEV1 / FVC LLN 63 % COMPAS PFT [id number] Actual Pre-BD 3.63 L/s COMPAS PFT [id number] Pre-BD % of Predicted 159 % COMPAS PFT [id number] Predicted 2.29 L/s COMPAS PFT [id number] Pre-BD Z-Score 1.24 COMPAS PFT DLCO Hb Actual Pre-BD 27.24 mL/min/mmHg COMPAS PFT DLCO Hb Pre-BD % of Predicted 112 % COMPAS PFT DLCO Hb Pre-BD Z-Score 0.67 COMPAS PFT DLCO Hb Predicted 24.29 mL/min/mmHg COMPAS PFT DLCO UNC ACT PRE-BD 27.24 mL/min/mmHg COMPAS PFT DLCO UNC PRE-BD % of PRED 112 % COMPAS PFT DLCO UNC PRE-BD Z-SCORE 0.67 % COMPAS PFT DLCO UNC Predicted 24.29 mL/min/mmHg COMPAS PFT DLCO/VA Actual Pre-BD 3.51 mL/min/mmHg /L COMPAS PFT DLCO/VA Pre-BD % of Predicted 86 % COMPAS PFT DLCO/VA Pre-BD Z-Score -0.88 COMPAS PFT DLCO/VA Predicted 4.09 mL/min/mmHg /L COMPAS PFT Narrative COMPAS PFT - 02/13/2021 1:29 PM EST FINDINGS: FEV1, FVC, and FEV1/VC are within normal limits. Diffusion capacity is normal. IMPRESSION: Normal spirometry. No diffusion impairment. Procedure Note Unknown - 02/14/2021 FINDINGS: FEV1, FVC, and FEV1/VC are within normal limits. Diffusioncapacity is normal. IMPRESSION: Normal spirometry. No diffusion impairment. Gilmer Gutiérrez MD PFT ORDERABLES COMPAS PFT documented in this encounter Visit Diagnoses Diagnosis Mass of upper lobe of left lung Pre-operative cardiovascular examination, high risk surgery Pre-operative cardiovascular examination documented in this encounter Care Teams Heritage Consultant Relationship Specialty Start Date End Date Tami Olivia [address] [place] [address] PCP - General Family Medicine 12/30/20 documented as of this encounter
--- OUTSIDE RECORDS SUMMARY | 2023-12-11 17:37 | XMS_ITS | Encounter Summary ---
Author Organization [facility] Address [address] [place] [address] Care Team Providers Care Solar Sales Consultant Name Role Phone Tami Olivia Primary Care Provider [phone] Encounter Details Date Type Department Care Team (Late st Contact Info) Description 12/12/2021 Lab Requisition [facility] Pathology & Laboratory Medicine - [address] [id number] Josephine Sotomayor MD [address] [facility] [place] [address] Encounter for other general examination Social History [...] Procedure Name Priority Date/Time Associated Diagnosis Comments NON GAS METER INSTALLER HELPER/FNA CYTOLOGY Today 12/11/2021 10:54 EDT Encounter for other general examination documented in this encounter Results * NON GAS METER INSTALLER HELPER/FNA CYTOLOGY (12/11/2021 10:54 EDT) Note to Patient The following pathology results have been interpreted by your pathologist and may be available to you before your health provider has had the opportunity to review them. Please allow time for your provider to receive these results and explore management options, if applicable. 12/12/2021 10:41 [facility] Final Diagnosis A. PLEURAL FLUID, LATERALITY NOT SPECIFIED, CYTOLOGIC EVALUATION: - Negative for malignant epithelial cells. - Hypocellular specimen composed of predominantly small lymphocytes. See comment. 12/12/2021 10:41 [facility] Diagnosis Comment Please see the concurrent flow cytometry ([id number]) for characterization of the lymphocytes. 12/12/2021 10:41 [facility] Attestation By the signature below, the attending physician certifies that they have personally conducted a gross and/or microscopic examination of the described specimens and rendered or confirmed the above diagnosis. 12/12/2021 10:41 [facility] at 1041 Clinical History Pleural effusion 12/12/2021 10:41 [facility] Gross Description A. 50cc's of clear yellow fluid were received and processed by selective cellular enhancement technique. 12/12/2021 10:41 [facility] Performing Lab [facility] 10:41 [facility] Scanned Images 12/12/2021 10:41 EDT [facility] Fluid PLEURAL FLUID / Unknown 12/11/2021 10:54 EDT 12/12/2021 6:39 EDT Josephine Sotomayor MD PATHOLOGY ORDERABLES [facility] [address] [place] [address] documented in this encounter Visit Diagnoses Diagnosis Encounter for other general examination documented in this encounter Care Teams Solar Sales Consultant Relationship Specialty Start Date End Date Tami Olivia [address] [place] [id number] PCP - General 12/04/19 documented as of this encounter
--- OUTSIDE RECORDS SUMMARY | 2023-12-11 17:37 | XMS_ITS | Encounter Summary ---
Author Organization [facility] Address [address] [place] [address] Care Team Providers Care Cash Clerk Name Role Phone Tami Olivia Primary Care Provider [phone] Reason for Visit * Reason Onset Date Comments Appointment Related 02/20/2022 Encounter Details Date Type Department Care Team (Late st Contact Info) Description 02/20/2022 Telephone [facility] [place] [address] [place] [address] Mena Ng MD [address] [facility] [address] [place] [phone] Appointment Related Social History Tobacco Use Types Packs/Day Years [...] No 12/04/2019 documented as of this encounter Miscellaneous Notes * Telephone Encounter - Jo Ann Pryor - 02/20/2022 1053 EST Pt had to cancel appt on 02/[address] Ng, he has been admitted at [facility]. Appt has been rescheduled to April. documented in this encounter Plan of Treatment Not on file documented as of this encounter Visit Diagnoses Not on filedocumented in this encounter Care Teams Cash Clerk Relationship Specialty Start Date End Date Tami Olivia [address] [place] [id number] PCP - General 12/04/19 documented as of this encounter
--- OUTSIDE RECORDS SUMMARY | 2023-12-11 17:37 | XMS_ITS | Encounter Summary ---
Author Organization [facility] Address [address] [place] [address] Care Team Providers Care Safety Risk Lead Name Role Phone Tami Olivia Primary Care Provider [phone] Encounter Details Date Type Department Care Team (Late st Contact Info) Description 09/28/2021 Lab Requisition [facility] Pathology & Laboratory Medicine - [facility] [address] [place] [address] Outr Resulting Lab, Provider Social History Tobacco [...] No 12/04/2019 Cognitive Status Response Date of Assess ent Because of a physical, menta l, or emotional condition, does this person have serious difficulty concentrating, remembering, or making decisions? No 12/04/2019 documented as of this encounter Plan of Treatment Not on file documented as of this encounter Procedures Procedure Name Priority Date/Time Associated Diagnosis Comments PSA TOTAL, DIAGNOSTIC Routine 09/28/2021 10:40 EDT documented in this encounter Results * PSA TOTAL, DIAGNOSTIC (09/28/2021 10:40 EDT) PSA 2.4 <=6.5 ng/mL 09/28/2021 22:36 EDT [facility] Blood VENOUS BLOOD / Unknown 09/28/2021 10:40 EDT 09/28/2021 21:24 EDT Narrative [facility] - 09/28/2021 22:36 EDT NOTE: Serum PSA concentration should not be interpreted as absolute evidence for the presence or absence of malignant disease. Assayed on Siemens ADVIA Sidewalkaur XPT using chemiluminescent technology.??Values obtained by using different assay methods cannot be used interchangeably. Provider Outr Resulting Lab CHEMISTRY & BLOOD GAS ORDERABLES [facility] [address] [place] [address] documented in this encounter Visit Diagnoses Not on filedocumented in this encounter Care Teams Safety Risk Lead Relationship Specialty Start Date End Date Tami Olivia [address] [place] [address] PCP - General 12/04/19 documented as of this encounter
--- OUTSIDE RECORDS SUMMARY | 2023-12-11 17:37 | XMS_ITS | Encounter Summary ---
Author Organization [facility] Address [facility] [place] [address] Care Team Providers Care Cognos Tm1 Developer Name Role Phone SudhakarJacksonTami Primary Care Provider [phone] Reason for Visit * Diagnostic Test (Routine) - Specialty Diagnoses / Procedures Referred By Bert gautam Referred To Contact Radiology Diagnoses Mass of upper lobe of left lung Pre-operative cardiovascular examination, high risk surgery Procedures NM Exercise Stress and Rest Myocardial Perfusion Gilmer Gutiérrez MD [facility] [place] [address] [place] [address] Referral ID Status Reason Start Date Expiration Date Visits Requested Visits Authorized [id number] Specialty Service Requested 02/09/2021 03/26/2021 4 4 Encounter Details Date Type Department Care Team (Latest Contact Info) Description 02/13/2021 10:02 AM [facility] Hospital Encounter [place] [address] Gilmer Gutiérrez MD [facility] [place] [address] Discharge Disposition: Home Social History [...] who have questions please contact the health career development facilitator that requested your imaging first. ? Electronically signed by: DARIO GOLDSMITH MD, [facility] ([phone]), at 02/13/2021 3:29 PM Narrative 02/13/2021 3:29 [...] patients who have questions please contactthe health career development facilitator that requested your imaging first. Electronically signed by: DARIO GOLDSMITH MD, [facility]([phone]), at 02/13/2021 3:29 PM Gilmer Gutiérrez MD IMG NM ORDERABLE S documented in this encounter Visit Diagnoses Not on filedocumented in this encounter Care Teams Cognos Tm1 Developer Relationship Specialty Start Date End Date Tami Olivia [address] [place] [address] PCP - General Family Medicine 12/30/20 documented as of this encounter
--- OUTSIDE RECORDS SUMMARY | 2023-12-11 17:37 | XMS_ITS | Encounter Summary ---
Author Organization [facility] Address [address] [place] [address] Care Team Providers Care Electrical Calibrator Name Role Phone Tami Olivia Primary Care Provider [phone] Reason for Visit * Reason Onset Date Comments Other Medications Refill 11/06/2019 Encounter Details Date Type Department Care Team (Late st Contact Info) Description 11/05/2019 Refill [facility] Rheumatology [address] [place] [address] Mena Ng MD [address] [facility] [address] [place] [phone] Other; Medications Refill Social History Tobacco Use Types Packs/Day Years Used Date Smoking Tobacco: Every Day Cigarettes Smokeless Tobacco: Never Alcohol Use Standard Drinks/Week Comments Never 0 [...] on file documented as of this encounter Ordered Prescriptions Prescription Sig Dispensed Refills Start Date End Da te hydrOXYchloroQUINE (PLAQUENIL) 200 mg tablet TAKE 2 TABLETS ORALLY ONCE A DAY 180 Tab 3 11/06/2019 08/12/2020 documented in this encounter Plan of Treatment Not on file documented as of this encounter Visit Diagnoses Not on filedocumented in this encounter Discontinued Medications Medication Sig Discontinue Reason Start Date End Da te hydrOXYchloroQUINE (PLAQUENIL) 200 mg tablet Take 400 mg by mouth daily. 11/06/2019 documented as of this encounter Care Teams Electrical Calibrator Relationship Specialty Start Date End Date Tami Olivia [address] [place] [address] PCP - General 12/04/19 documented as of this encounter
--- OUTSIDE RECORDS SUMMARY | 2023-12-11 17:37 | XMS_ITS | Encounter Summary ---
Author Organization [facility] Address [facility] [place] [address] Care Team Providers Care Beck Tender Name Role Phone Tami Olivia Primary Care Provider [phone] Reason for Referral * Consultation (Urgent) - Closed Specialty Diagnoses / Procedures Referred By Bert gautam Referred To Contact Otolaryngology Diagnoses Pharyngeal lesion PET avid left lateral pharyngeal wall uptake, please eval Patient is scheduled for Left Upper Lobe lung Lobectomy on 03/29/2021, Gilmer Gutiérrez MD [facility] [place] [address] [facility] [address] [place] [phone] Referral ID Status Reason Start Date Expiration Date V isits Requested Visits Authorized [id number] Closed Consult, Test & Treat 02/13/2021 02/13/2022 1 1 Encounter Details Date Type Department Care Team (Late st Contact Info) Description 02/13/2021 2:15 PM EST Office [place] [address] Gilmer Gutiérrez MD [facility] [place] [address] Mass of upper lobe of left lung; Prostate enlargement; Pharyngeal lesion Social History Tobacco Use Types Packs/Day Years [...] Sign Reading Time Taken Comments Blood Pressure 148/86 02/13/2021 1:54 PM EST Pulse 57 02/13/2021 1:54 PM EST Temperature 36.4 ??C (97.5 ??F) 02/13/2021 1:54 PM ES T Respiratory Rate 18 02/13/2021 1:54 PM EST Oxygen Saturation 97% 02/13/2021 1:54 PM EST Inhaled Oxygen Concentration - - Weight 87.1 kg (192 lb) 02/13/2021 1:54 PM EST Height 172.1 cm (5' 7.75) 02/13/2021 1:54 PM ES T Body Mass Index 29.41 02/13/2021 1:54 PM EST documented in this encounter Patient Instructions * Patient Instructions* Megan Reza RN - 02/13/2021 2:15 PM EST Thank you for visiting Dr. Gutiérrez in clinic 02/13/[address] Gutiérrez has recommended you have wedge resection with possible Lobectomy of your lung. Your procedure is scheduled for Saturday. You will receive a phone call from theOR nurses on Saturday after 2pm through 6 pm. They will confirm your arrival time,review what medications to take and when to stop eating and drinking. Your procedure will occur in temporary receptionist area 4W. Please park in the parking garage and you will come into the [facility] center on level 4. Go straight, all the way to the end of the soto, that is Same day surgery wooden desk also temporary receptionist area 4W. Bronchoscopy is the term for a procedure in which a scope (thin tube with a light source on the end), is placed through your mouth or nose and into your trachea and large airways. A small amount of tissue from the surface of the area is removed. The removal of the tissue is called a biopsy. A lobectomy is when a surgeon removed a lobe of your lung. A video-assisted thoracoscopic surgery, or VATS, involves a range of technologies to enable the removal of tissue through several small cutsin the chest. A tiny camera, light supply and surgical tools are inserted in the incisions and through the body to the surgical site. Thoracoscopy allows the surgeon to see inside your chest. In this procedure, the surgeon makes one or more small incisions between your ribs. A tube with a tiny video camera is then inserted into your chest cavity -- a procedure sometimes called video-assisted thoracoscopic surgery (VATS). Special surgical tools allow your surgeon to cut away small pieces of tissue for testing A thoracotomy is a 3 to 8 inch incision made on your chest. It can extend to your back. Some muscleis cut and the ribs are spread apart. The size and location of the incision depends on the part of the lung being removed. Before your Surgery: PLEASE WASH WITH HIBICLENS SOAP included in this package. Please wash your chest, sides and back. You may shower either the night before or the morning of surgery and please place clean clothes on after your shower. ?? Exercise: Daily aerobic exercise for at least [...] in clinic: 6 times daily/10 breaths each time (total of at least 60 breaths in a day). It is a sucking motion when you [...] to prevent complications such as pneumonia. You will be having a COVID test prior to your Surgery. THIS MAY BE A RAPID TEST ON THE DAY OF SURGERY. You will receive a phone call from the [employer] Hotline [phone] prior to your surgery to schedule you an appointment. Please call the [employer] Hotline number with any questions or concerns. Some things to expect during your surgery and while you are in the hospital: You will leave the operating room with a urinary catheter. The catheter is usually removed a day ortwo after surgery. You will have a chest tube placed [...] to clear up regularly throughout the day. You may also have a dry cough after surgery. This may last a few days to a few weeks. Please make sure that you are drinking and staying hydrated. You may take some cough drops or over the counter cough medicine. Please call the office if you have any questions or concerns. Post Surgery Instructions at home: Bowel regimen while at home. Please obtain [...] taking the narcotics. Post Surgery Instructions at home: Example of what you will be taking for pain control after your surgery. Please make sure that you have Extra strength Tylenol (acetaminophen) and Motrin (ibuprofen) at home before you are discharged Extra strength acetaminophen 1000 mg alternate with ibuprofen 200 mg (2-3 tabs) every 3 hours or take both medications together every 6 hours: ex. Schedule - Extra strength acetaminophen 1000 mg at 8am, Ibuprofen 200 mg (2-3 tabs) at 11 am, then Extra strength acetaminophen 1000 mg at 2 pm, then ibuprofen 200 mg (2- 3 tabs) at 5 pm. Do not exceed more than 4000 mg of Extra strength acetaminophen in [address] Gutiérrez's team will see you twice per day while you are in the hospital. Two weeks after youleave the hospital, you will be scheduled to see Dr. Gutiérrez in his clinic and will also have a chest x-ray before you see him on this day. Please call the Thoracic Surgery nurse if you have any questions before or after your surgery at . documented in this encounter Progress Notes * Matt Wan PA - 02/13/2021 2:15 PM EST Images from the original note were not included. Thoracic Surgery Attending Outpatient Follow Up Note MD Matt Fischer PA-C [place] [id number] FAX: Chief Complaint: Follow-up for spiculated 2.8 cm ARACELI lung nodule concerning for primary lung malignancy HPI: Rajan Marquez is a 70 y.o. male with an approximate 100 PY smoking history (2 ppd x 50 years, smoking 1 ppd for the past year) and PMHx significant for CAD, hypertension, COPD, depression, GERD,BPH, and synovitis presenting today in follow-up regarding a spiculated 2.8 cm left upper lobe lungnodule suspicious for primary lung malignancy. He was last seen by us on 01/16/21, at which time plan was to proceed with PET/CT and brain MRI for staging, NM cardiac stress test, and PFTs. He presents today having completed the workup to review the results and establish a treatment plan. ?? Overall, Rajan Marquez reports that he is feeling well. He denies any interval illnesses or hospitalizations. He denies fever, chills, nausea, vomiting, change in appetite, unintentional weight loss,or flulike symptoms. He reports that he has cut down on smoking, currently smoking 1/2 ppd utilizing CBD gummies; he has not tried nicotine patches yet. Medications: Current Outpatient Medications on File Prior [...] unit Tablet Take 1 tablet by mouth. Current Facility-Administered Medications on File Prior to Visit Medication Dose Route Frequency Provider Last Rate Last Admin ??? [COMPLETED] technetium (Tc-99m) sestamibi injection 0-30 mCi 0-30 mCi Intravenous BID Fei Maciel MD 26.3 mCi at 02/13/21 1140 Physical Exam: BP 148/86 (Patient Position: Sitting) Pulse 57 Temp 36.4 ??C (97.5 ??F) (Temporal) Resp 18 Ht 172.1 cm (5' 7.75) Wt 87.1 kg (192 lb) SpO2 97% BMI 29.41 kg/m?? General Appearance: Alert, cooperative, no distress, appears stated age Nk: Supple, symmetrical, trachea midline, no adenopathy Lungs: Clear to auscultation bilaterally, respirations unlabored, No wheezes, crackles or ronchi. Heart: Regular rate and rhythm, S1 and S2 normal, I-II/ systolic murmur appreciated. No R/G appreciated Abdomen: Soft, non-tender, bowel sounds active all four quadrants, no masses, no organomegaly Extremities: Extremities normal, atraumatic, no cyanosis or edema Wound/Incision: Clean, dry, intact, with evidence of good wound healing Imaging: We have independently visualized the following studies: CT Lung Cancer Screening (09/18/2019): ? CT Lung Cancer Screening (12/23/2020): EKG (01/16/21): Sinus rhythm with Premature atrial complexes Rightward axis Borderline ECG ?? MRI Brain (02/10/21): IMPRESSION No evidence of metastatic disease. PET/CT (02/10/21): 1. FDG avid spiculated 2.5 cm left [...] neoplastic process is not excluded. Recommend ENT consultation. 6. Unexpected finding. PFTs (02/13/21): Assessment: Rajan Marquez is a 70 y.o. male with an enlarging, spiculated ARACELI lung nodule concerning for primary lung cancer - clinically cT1cN0, stage IA3. Plan: 1. F/u on results of today's NM cardiac stress test 2. PSA for further evaluation of FDG avid left prostate gland - If his PSA is elevated he will needa referral to urology prior to surgery. If his PSA is WNL, he may see urology after his surgery. 3. Referral to ENT for further evaluation of FDG avid left pharyngeal wall 4. Plan for bronchoscopy, left VATS ARACELI wedge resection, possible LULobectomy and MLND 5. Encourage smoking cessation - pt met with our smoking cessation specialist today. He is motivated to quit smoking and is agreeable to trying nicotine patches. He understands that he needs to be smoke-free for 2 weeks prior to surgery. He will need a CO test the morning of surgery. 6. Minimum of 30 minutes of physical activity daily 7. Call with questions/concerns All plans formulated in discussion with and directed by attending thoracic surgeon Dr. Gutiérrez. STEVE Arriaga 02/13/21 Thoracic Surgery [facility] * Gilmer Gutiérrez MD - 02/13/2021 2:15 PM EST Thoracic surgery follow-up visit I saw and examined Mr. Marquez with STEVE Brooks, and agree with her findings, assessment and plan. In brief: Chief complaint: Spiculated left upper lobe lung nodule History of present illness: Mr. Marquez is a 70-year-old man with a [id number] smoking history referred initially for a 2.8 cm left upper lobe lung nodule. I saw him on January 16 and recommended a work-up including PET CT, brain MRI, cardiac stress test and pulmonary function testing. He comes in today having completed these tests with no new symptoms to report. He has cut down his smoking to 1/2 pack/day. Current Outpatient Medications on File Prior to [...] unit Tablet Take 1 tablet by mouth. Current Facility-Administered Medications on File Prior to Visit Medication Dose Route Frequency Provider Last Rate Last Admin ??? [COMPLETED] technetium (Tc-99m) sestamibi injection 0-30 mCi 0-30 mCi Intravenous BID PRN Fei Larson MD 26.3 mCi at 02/13/21 1140 BP 148/86 (Patient Position: Sitting) Pulse 57 Temp 36.4 ??C (97.5 ??F) (Temporal) Resp 18 Ht 172.1 cm (5' 7.75) Wt 87.1 kg (192 lb) SpO2 97% BMI 29.41 kg/m?? Physical exam: He appears comfortable. He has no neurologic deficits. He has no palpable adenopathy. His lungs are clear. Imaging: PET/CT and brain MRI were obtained on February 10. The brain MRI demonstrated no metastaticdisease. The PET/CT demonstrated FDG uptake in the nodule of concern, and in addition small areas of uptake in the left lobe of the prostate and in the left lateral pharyngeal wall Pulmonary function testing: PFTs dated February 13 are notable for an FEV1 of 3.45 (115% predicted) and a corrected DLCO 86% predicted Cardiac stress test: Cardiac stress test was negative for ischemia or scar Assessment: 70-year-old smoker with a spiculated left upper lobe lung nodule. The nodule is highly concerning for an early stage lung cancer. In addition, he has abnormalities in the prostate and left lateral pharyngeal wall on his PET CT. His pulmonary function testing and cardiac evaluation are adequate to support a wedge resection with possible lobectomy if indicated. I recommended a PSA due to the prostate lesion, and referral to an lumber hacker for direct examination of the pharynx. Pending the results of these tests, if he is able to completely quit smoking, we would proceed with thoracoscopic wedge resection and possible lobectomy if a malignancy is diagnosed. Plan: Check PSA level, ENT referral, possible thoracoscopic wedge resection with lobectomy if indicated GILMER GUTIÉRREZ MD documented in this encounter Plan of Treatment Scheduled Procedures Name Priority Associated Diagnoses Date/Ti ak ELECTROPHYSIOLOGY PROCEDURE Persistent atrial fibrillation CARDIOVERSION-ELECTIVE (WRVU 2) persistent atrial fibrillation TRANSESOPHAGEAL ECHOCARDIOGR AM (WRVU 2.3) persistent atrial fibrillation Scheduled Referrals Name Type Priority Associated Diagnoses Orde r Schedule Referral to ENT Outpatient Referral Routine Pharyngeal lesion Ordered: 02/13/2021 documented as of this encounter Procedures Procedure Name Priority Date/Time Associated Diagnosis Comments HEMOGRAM Routine 02/13/2021 3:56 PM EST Mass of upper lobe of left lung DIFFERENTIAL, AUTOMATED Routine 02/13/2021 3:56 PM EST Mass of upper lobe of left lung HC CBC,PLT & AUTO DIFF Routine 3:56 PM EST Mass of upper lobe of left lung HC VENIPUNCTURE Routine 02/13/2021 3:56 PM EST Prostate enlargement COMPREHENSIVE METABOLIC PANEL Routine 02/13/2021 3:56 PM EST Mass of upper lobe of left lung EKG 12-LEAD Routine 02/13/2021 3:15 PM EST Mass of upper lobe of left lung documented in this encounter Results * (ABNORMAL) Differential, Automated (02/13/2021 3:56 PM EST) Neutrophil % 68.8 % [facility] Neutrophil Absolute 6.59(H) 1.70 - 6.10 x10(3)/mc L [facility] Lymph % 23.4 % [facility] Lymphocytes Abs 2.2 0.9 - 3.2 x10(3)/mc L [facility] Monocyte % 6.8 % [facility] Monocyte Abs 0.6 0.3 - 0.9 x10(3)/mc L [facility] Eos % 0.3 % [facility] Eosinophils Abs 0.0 0.0 - 0.4 x10(3)/[facility] Basophil % 0.5 % [facility] Baso Absolute 0.0 0.0 - 0.1 x10(3)/[facility] Immature Gran % 0.20 % [facility] Comment: Immature granulocytes(IG's)percentage and absolute count will include metamyelocytes, myelocytes, and promyelocytes. Blood smears from CBCs yielding IG's will be scanned manually for concordance. If this scan disagrees with the automated IG or if promyelocytes are noted, a manual differential will be performed. Immature Gran Absolute 0.02 0.00 - 0.04 x10(3)/[facility] Blood 02/13/2021 3:56 PM EST 02/13/2021 4:15 PM EST Narrative Resulting Agency Comment Spec In Lab Gilmer Gutiérrez MD HEMATOLOGY ORDER PHILOMENA [facility] [place] [address] * (ABNORMAL) Hemogram (02/13/2021 3:56 PM EST) White Blood Cell 9.6(H) 4.0 - 9.5 x10(3)/[facility] Red Blood Cell 4.63 4.58 - 5.54 x10(6)/[facility] Hemoglobin 14.5 13.7 - 16.5 g/dL [facility] Hematocrit 42.1 40.5 - 48.5 % [facility] Mean Cell Volume 90.9 82.9 - 93.1 fL [facility] Mean Cell Hemoglobin 31.3 27.5 - 32.1 pg [facility] Mean Cell Hemoglobin Concentration 34.4 32.0 - 35.7 g/dL [facility] Platelet 202 145 - 357 x10(3)/[facility] RDW Standard Deviation 43.0 36.0 - 45.0 [facility] RDW coefficient of variation 13.1 11.4 - 13.8 % [facility] Mean Platelet Volume 10.3 7.6 - 12.9 [facility] NRBC% auto 0.0 % [facility] NRBC Absolute 0.000 0.000 - 0.000 x10(3)/mc L [facility] Blood 02/13/2021 3:56 PM EST 02/13/2021 4:15 PM EST Narrative Resulting Agency Comment Spec In Lab Gilmer Gutiérrez MD HEMATOLOGY ORDER PHILOMENA Performing Organization Address [facility] Co de Phone Number [facility] [place] [address] * PSA (Ultrasensitive) (02/13/2021 3:56 PM EST) [facility] Prostate Specific Antigen (Ultrasensitive ) 2.71 0.00 - 4.00 ng/mL [facility] Comment: PLEASE NOTE: The above reference interval is intended for healthy males with an intact prostate. Values within this reference interval may indicate recurrence in men who have undergone radical prostatectomy. Blood 02/13/2021 3:56 PM EST 02/13/2021 4:15 PM EST Narrative Resulting Agency Comment Spec In Lab Gilmer Gutiérrez MD CHEMISTRY ORDERA BLES Performing Organization Address City/[facility]/ZIP Co de Phone Number [facility] [place] [address] * (ABNORMAL) Comprehensive metabolic panel (non-fasting) (02/13/2021 3:56 PM EST) [facility] Glucose 81 65 - 199 mg/dL [facility] Comment:Diabetes: >=200 mg/d L plus symptoms Blood Urea Nitrogen 21(H) 10 - 20 mg/dL [facility] Creatinine 1.02 0.80 - 1.50 mg/dL [facility] Sodium 142 135 - 145 mmol/L [facility] Potassium 3.9 3.5 - 5.0 mmol/L [facility] Comment: Please note: ??Patients with WBC >100,000 may have falsely elevated Potassium levels. ??For accurate Potassium quantification in these patients send serum separator tube (gold top) for subsequent determinations. ??Contact the Clinical Chemistry Laboratory if there are any questions. Chloride 106 98 - 107 mmol/L [facility] Carbon Dioxide 22 22 - 31 mmol/L [facility] Anion Gap 14 5 - 15 mmol/L [facility] Calcium 9.9 8.5 - 10.5 mg/dL [facility] Protein, Total 7.1 6.1 - 8.0 g/dL [facility] Albumin 4.4 3.2 - 5.2 g/dL [facility] Aspartate Aminotransferase 16 0 - 39 unit/L [facility] Alanine Aminotransferase 14 0 - 55 unit/L [facility] Alkaline Phosphatase 55 40 - 130 unit/L [facility] Bilirubin, Total 0.4 0.2 - 1.3 mg/dL [facility] Est Glomerular Filtration Rate 74 >=60 mL/min/1. 73 m?? [facility] Comment: This patient? s estimated glomerular filtration rate (eGFR) is between 74 mL/min/1.73 m2 (patients with less muscle mass per kg body weight) and 85 mL/min/1.73 m2 (patients with more muscle mass [...] and symptoms in addition to eGFR. Blood 02/13/2021 3:56 PM EST 02/13/2021 4:15 PM EST Narrative Resulting Agency Comment Spec In Lab Gilmer Gutiérrez MD CHEMISTRY ORDERA BLES Performing Organization Address City/[facility]/ZIP Co de Phone Number [facility] [place] [address] * EKG 12 Lead (02/13/2021 3:15 PM EST) Ventricular rate 73 BPM MUSE SYSTEM Atrial Rate 73 BPM MUSE SYSTEM P-R Interval 170 ms MUSE SYSTEM QRS Duration 104 ms MUSE SYSTEM Q-T Interval 390 ms MUSE SYSTEM QTC Calculated (Bezet) 429 ms MUSE SYSTEM Calculated P [place] 83 degrees MUSE SYSTEM Calculated R [place] 88 degrees MUSE SYSTEM Calculated T [place] 57 degrees MUSE SYSTEM INTERPRETATION Sinus rhythm with Premature atrial complexes Otherwise normal ECG When compared with ECG of 16-JAN-2021 14:36, No significant change was found Confirmed by MD Chaka, Srini Cottrell ([id number]) on 02/16/2021 9:29:07 AM MUSE SYSTEM 02/13/2021 3:15 PM EST 02/16/2021 9:29 AM EST Gilmer Gutiérrez MD ECG ORDERABLES Performing Organization Address [facility] Co de Phone Number MUSE SYSTEM documented in this encounter Visit Diagnoses Diagnosis Mass of upper lobe of left lung Prostate enlargement Hypertrophy of prostate without urinary obstruction and other lower urinary tract symptoms (LUTS) Pharyngeal lesion Unspecified disease of pharynx documented in this encounter Care Teams Beck Tender Relationship Specialty Start Date End Date Tami Olivia [address] [place] [address] PCP - General Family Medicine 12/30/20 documented as of this encounter
--- OUTSIDE RECORDS SUMMARY | 2023-12-11 17:37 | XMS_ITS | Encounter Summary ---
Author Organization [facility] Address [facility] [place] [address] Care Team Providers Care Head Of Partner Development Name Role Phone SudhakarJacksonTami Primary Care Provider [phone] Reason for Referral * Diagnostic Test (Routine) - Closed Specialty Diagnoses / Procedures Referred By Bert gautam Referred To Contact Radiology Diagnoses Mass of upper lobe of left lung Pre-operative cardiovascular examination, high risk surgery Procedures MRI Brain wwo Contrast (Generic) Gilmer Gutiérrez MD [facility] [place] [address] [place] [address] Referral ID Status Reason Start Date Expiration Date V isits Requested Visits Authorized [id number] Closed Specialty Service Requested 01/16/2021 07/16/2022 1 1 Reason for Visit * Diagnostic Test (Routine) - Closed Specialty Diagnoses / Procedures Referred By Bert gautam Referred To Contact Radiology Diagnoses Mass of upper lobe of left lung Pre-operative cardiovascular examination, high risk surgery Procedures MRI Brain wwo Contrast (Generic) Gilmer Gutiérrez MD [facility] [place] [address] [place] [address] Referral ID Status Reason Start Date Expiration Date V isits Requested Visits Authorized [id number] Closed Specialty Service Requested 01/16/2021 07/16/2022 1 1 Encounter Details Date Type Department Care Team (Latest Contact Info) Description 02/10/2021 7:42 AM EST - 02/10/2021 8:40 AM EST Hospital Encounter MRI at [facility] [place] [address] Gilmer Gutiérrez MD [facility] [place] [address] Mass of upper lobe of left lung; [...] Procedure Name Priority Date/Time Associated Diagnosis Comments MRI BRAIN WWO CONTRAST (GENERIC) Routine 02/10/2021 8:41 AM EST Mass of upper lobe of left lung Pre-operative cardiovascular examination, high risk surgery documented in this encounter Results * MRI Brain wwo Contrast (Generic) (02/10/2021 8:41 AM EST) Anatomical Region Laterality Modality Head Magnetic Resonan ce Impressions 02/10/2021 3:23 PM EST No evidence of metastatic disease. Thank you for letting us participate in the care of this patient. ??If you are a health care provider and have any questions regarding this report, please contact the number below. ??For patients who have questions please contact the health customer care specialist that requested your imaging first. ? Narrative 02/10/2021 3:23 PM EST EXAMINATION: MRI BRAIN WWO CONTRAST (GENERIC) CLINICAL HISTORY: Metastatic disease evaluation - Include more detail below hx of 2.8 cm ARACELI lung mass, please eval for metastatic disease TECHNIQUE: MRI of the brain was performed before and after the intravenous administration of 19cc Dotarem. COMPARISON: None FINDINGS: No intracranial hemorrhage, mass, mass effect, hydrocephalus, midline shift, or acute infarction. The parenchyma is normally formed and the subarachnoid spaces are normal. Minimal number of T2 bright white matter foci which are nonspecific but most consistent with minimal chronic small vessel disease. No marrow signal abnormality. The visualized soft tissues of the face and orbits are grossly normal. There is no abnormal enhancement. Procedure Note Ness Murillo MD - 02/10/2021 EXAMINATION: MRI BRAIN WWO CONTRAST (GENERIC) CLINICAL HISTORY: Metastatic disease evaluation - Include more detailbelow hx of 2.8 cm ARACELI lung mass, please eval for metastatic disease TECHNIQUE: MRI of the brain was performed before and after the intravenousadministration of 19cc Dotarem. COMPARISON: None FINDINGS: No intracranial hemorrhage, mass, mass effect, hydrocephalus, midlineshift, or acute infarction. The parenchyma is normally formed and the subarachnoidspaces are normal. Minimal number of T2 bright white matter foci which arenonspecific but most consistent with minimal chronic small vessel disease. No marrowsignal abnormality. The visualized soft tissues of the face and orbits aregrossly normal. There is no abnormal enhancement. IMPRESSION No evidence of metastatic disease. Thank you for letting us participate in the care of this patient. If youare a health care provider and have any questions regarding this report,please contact the number below. For patients who have questions please contactthe health customer care specialist that requested your imaging first. Gilmer Gutiérrez MD IMG MRI ORDERABL ES documented in this encounter Visit Diagnoses Diagnosis Mass of upper lobe of left lung Pre-operative cardiovascular examination, high risk surgery Pre-operative cardiovascular examination documented in this encounter Administered Medications Inactive Administered Medications - up to 3 most recent administrations Medication Order MAR Action Action Date Dose Rate Site gadoterate meglumine (Dotarem) (0.5 mMol/mL) injection solution 0-100 mL 0-100 mL, Intravenous, ONCE PRN, 1 dose, Starting on Sat02/10/21 at 0810, Until Sat02/10/21 at 0827, Per Protocol, Radiology Contrast, Routine Given 02/10/2021 8:27 AM EST 19 mLs documented in this encounter Care Teams Head Of Partner Development Relationship Specialty Start Date End Date Tami Olivia [address] [place] [address] PCP - General Family Medicine 12/30/20 documented as of this encounter
--- OUTSIDE RECORDS SUMMARY | 2023-12-11 17:37 | XMS_ITS | Encounter Summary ---
Author Organization [facility] Address [facility] [place] [address] Care Team Providers Care Auto Radiator Mechanic Name Role Phone SudhakarJacksonTami Primary Care Provider [phone] Reason for Referral * Diagnostic Test (Routine) - Specialty Diagnoses / Procedures Referred By Bert t Referred To Contact Radiology Diagnoses Mass of upper lobe of left lung Pre-operative cardiovascular examination, high risk surgery Procedures NM Exercise Stress and Rest Myocardial Perfusion Gilmer Gutiérrez MD [facility] [place] [address] [place] [address] Referral ID Status Reason Start Date Expiration Date Visits Requested Visits Authorized [id number] Specialty Service Requested 02/09/2021 03/26/2021 4 4 Reason for Visit * Diagnostic Test (Routine) - Specialty Diagnoses / Procedures Referred By Bert t Referred To Contact Radiology Diagnoses Mass of upper lobe of left lung Pre-operative cardiovascular examination, high risk surgery Procedures NM Exercise Stress and Rest Myocardial Perfusion Gilmer Gutiérrez MD [facility] [place] [address] [place] [address] Referral ID Status Reason Start Date Expiration Date Visits Requested Visits Authorized [id number] Specialty Service Requested 02/09/2021 03/26/2021 4 4 Encounter Details Date Type Department Care Team (Latest Contact Info) Description 02/13/2021 10:01 AM EST Hospital Encounter Nuclear Medicine at [facility] [place] [phone] Gilmer Gutiérrez MD [facility]AC[facility] [address] Mass of upper lobe of left lung; [...] who have questions please contact the health careers adviser that requested your imaging first. ? Electronically signed by: DARIO GOLDSMITH MD, [facility] ([phone]), at 02/13/2021 3:29 PM Narrative 02/13/2021 3:29 [...] patients who have questions please contactthe health careers adviser that requested your imaging first. Electronically signed by: DARIO GOLDSMITH MD, [facility]([phone]), at 02/13/2021 3:29 PM Gilmer Gutiérrez MD [facility] [facility] [place] ORDERABLE S documented in this encounter [...] TIMES DAILY PRN, 2 doses, Starting on 02/13/21 at 1025, Until 02/13/21 at 1140, Per Protocol, Radiology Contrast, Routine Given 02/13/2021 11:40 AM EST 26.3 mCi Given 02/13/2021 10:20 AM EST 7.8 mCi documented in this encounter Care Teams Auto Radiator Mechanic Relationship Specialty Start Date End Date Tami Olivia [address] [place] [address] PCP - General Family Medicine 12/30/20 documented as of this encounter
--- OUTSIDE RECORDS SUMMARY | 2023-12-11 17:37 | XMS_ITS | Encounter Summary ---
Author Organization [facility] Address [address] [place] [address] Care Team Providers Care Check Writing Machine Operator Name Role Phone Tami Olivia Primary Care Provider [phone] Encounter Details Date Type Department Care Team (Late st Contact Info) Description 12/11/2021 Lab Requisition [facility] Pathology & Laboratory Medicine - [facility] [address] [place] [address] Outr Resulting Lab, Provider Social History Tobacco [...] Procedure Name Priority Date/Time Associated Diagnosis Comments FUNGUS CULTURE/SMEAR Routine 12/11/2021 11:00 EDT documented in this encounter Results * FUNGUS CULTURE/SMEAR (12/11/2021 11:00 EDT) Organism ID No fungi isolated 01/08/2022 10:43 EDT [facility] Fungal Smear No Fungi Seen 01/08/2022 10:43 EDT [facility] Fluid PLEURAL / Unknown 12/11/2021 11:00 EDT 12/11/2021 17:43 EDT Provider Outr Resulting Lab MICROBIOLOGY - GENERAL ORDERABLES Performing Organization Address City/State[facility] Co de Phone Number [facility] [address] [place] [address] documented in this encounter Visit Diagnoses Not on filedocumented in this encounter Care Teams Check Writing Machine Operator Relationship Specialty Start Date End Date Tami Olivia [address] [place] [id number] PCP - General 12/04/19 documented as of this encounter
--- OUTSIDE RECORDS SUMMARY | 2023-12-11 17:37 | XMS_ITS | Encounter Summary ---
Author Organization [facility] Address [address] [place] [address] Care Team Providers Care Spice Blender Name Role Phone Tami Olivia Primary Care Provider [phone] Encounter Details Date Type Department Care Team (Late st Contact Info) Description 08/10/2021 Lab Requisition [facility] Pathology & Laboratory Medicine - [facility] [address] [place] [address] Outr Resulting Lab, Provider Social History Tobacco [...] Associated Diagnosis Comments PSA TOTAL, DIAGNOSTIC Routine 08/10/2021 12:55 EDT documented in this encounter Results * PSA TOTAL, DIAGNOSTIC (08/10/2021 12:55 EDT) PSA 4.7 <=6.5 ng/mL 08/10/2021 22:25 EDT [facility] Blood VENOUS BLOOD / Unknown 08/10/2021 12:55 EDT 08/10/2021 21:07 EDT Narrative [facility] - 08/10/2021 22:25 EDT NOTE: Serum PSA concentration should not be interpreted as absolute evidence for the presence or absence of malignant disease. Assayed on Siemens ADVIA Corelyticsaur XPT using chemiluminescent technology.??Values obtained by using different assay methods cannot be used interchangeably. Provider Outr Resulting Lab CHEMISTRY & BLOOD GAS ORDERABLES [facility] [address] [place] [address] documented in this encounter Visit Diagnoses Not on filedocumented in this encounter Care Teams Spice Blender Relationship Specialty Start Date End Date Tami Olivia [address] [place] [id number] PCP - General 12/04/19 documented as of this encounter
--- OUTSIDE RECORDS SUMMARY | 2023-12-11 17:37 | XMS_ITS | Encounter Summary ---
Author Organization [facility] Address [facility] [address] [place] [address] Care Team Providers Care Embossing Machine Operator Helper Name Role Phone Unavailable Primary Care Provider Unavailabl e Encounter Details Date Type Department Care Team (Late st Contact Info) Description 12/23/2020 Ancillary Procedure Radiology Library at [facility] [place] [phone] Kasie Marcus MD [address] [place] [phone] Social History Tobacco Use Types Packs/Day Years [...] FILM LIBRARY STORAGE ONLY CT CHEST Routine 12/23/2020 12:00 AM EDT documented in this encounter Results * Film Library- Storage Only CT Chest (12/23/2020 12:00 AM EDT) Narrative THU JIMENEZ - 12/30/2020 10:45 AM EDT This exam is auto-finalizing. It's purpose is for storage only. Kasie Marcus MD IMG FILM LIBRARY ORDERABLES [place] documented in this encounter Visit Diagnoses Not on filedocumented in this encounter
--- OUTSIDE RECORDS SUMMARY | 2023-12-11 17:37 | XMS_ITS | Clinical Summary ---
Author Organization [facility] Address [address] [place] [address] Care Team Providers Care [employer] Teacher Name Role Phone Tami Olivia Primary Care Provider [phone] Allergies Active Allergy Reactions Criticality Noted Date [...] Palpitations 11/05/2019 COPD (chronic obstructive pulmonary disease) ([facility]) 11/05/2019 ADHD 11/05/2019 Depression 11/05/2019 Tobacco abuse 11/05/2019 Medical History Medical History Date Comments Conductive hearing loss, bilateral Family History Medical History Relation Comments Diabetes Father Heart Disease Father Heart Disease Mother Relation Status Comments Father Mother Social History Tobacco Use Types Packs/Day Years [...] 8:00 EDT Sexual Orientation Not on file Obstetrics History Last Filed Vital Signs Vital Sign Reading [...] Body Mass Index 23.4 04/20/2022 1130 EST Plan of Treatment Health Maintenance Due Date Last Done Comments Copd Action Plan 1950 Hepatitis C Screen 1950 Lung Function Test (Spirometry) 1950 RSV Immunization ( o r 60+ Years) (1 - 1-dose 60+ series) 2009 Fall Risk Screening 12/03/2020 12/04/2019 COVID-19 Vaccine (2022-24 season) 2022 Lung Cancer Screening 04/16/2023 04/16/2022, 022 Care Teams [employer] Teacher Relationship Specialty Start Date End Date Tami Olivia [address] [place] [id number] PCP - General 12/04/19
--- OUTSIDE RECORDS SUMMARY | 2023-12-11 17:37 | XMS_ITS | Encounter Summary ---
Author Organization [facility] Address [address] [place] [address] Care Team Providers Care Degreasing Wheel Operator Name Role Phone Tami Olivia Primary Care Provider [phone] Encounter Details Date Type Department Care Team (Late st Contact Info) Description 09/27/2022 Lab Requisition [facility] Pathology & Laboratory Medicine - [facility] [address] [place] [address] Outr Resulting Lab, Provider Social History Tobacco [...] Procedure Name Priority Date/Time Associated Diagnosis Comments SPEP, INCLUDES QUANTITATION OF MONOCLONAL SPIKE PERFORMABLE Today 09/26/2022 12:30 EDT SPEP, INCLUDES QUANTITATION OF MONOCLONAL SPIKE Routine 09/26/2022 12:30 EDT PROTEIN, TOTAL Today 09/26/2022 12:30 EDT documented in this encounter Results * (ABNORMAL) SPEP, INCLUDES QUANTITATION OF MONOCLONAL SPIKE PERFORMABLE (09/26/2022 12:30 EDT) Albumin % 54.6(L) 55.8 - 66.1 % 09/28/2022 13:53 [facility] Albumin g/dL 3.9 3.6 - 5.2 g/dL 09/28/2022 13:53 [facility] Alpha-1 % 5.1(H) 2.9 - 4.9 % 09/28/2022 13:53 [facility] Alpha-1 g/dL 0.40 0.15 - 0.40 g/dL 09/28/2022 13:53 [facility] Alpha-2 % 12.0(H) 7.1 - 11.8 % 09/28/2022 13:53 [facility] Alpha-2 g/dL 0.90 0.50 - 1.00 g/dL 09/28/2022 13:53 [facility] Beta % 13.3(H) 8.4 - 13.1 % 09/28/2022 13:53 [facility] Beta g/dL 1.00 0.60 - 1.20 g/dL 09/28/2022 13:53 [facility] Gamma % 15.0 11.1 - 18.8 % 09/28/2022 13:53 [facility] Gamma g/dL 1.10 0.60 - 1.60 g/dL 09/28/2022 13:53 EDT [facility] SPEP Comment No apparent monoclonal protein seen on serum electrophoresis 09/28/2022 13:53 EDT [facility] Comment:See scanned/suppleme ntary report. Total Protein 7.2 6.3 - 8.2 g/dL 09/28/2022 13:53 EDT [facility] Blood VENOUS BLOOD / Unknown 09/26/2022 12:30 EDT 09/27/2022 18:12 EDT Provider Outr Resulting Lab CHEMISTRY & BLOOD GAS ORDERABLES Performing Organization Address [facility] de Phone Number [facility] [address] [place] [address] * PROTEIN, TOTAL (09/26/2022 12:30 EDT) Blood VENOUS BLOOD / Unknown 09/26/2022 12:30 EDT 09/27/2022 18:12 EDT Provider Outr Resulting Lab CHEMISTRY & BLOOD GAS ORDERABLES Performing Organization Address [facility] Co de Phone Number [facility] [address] [place] [address] documented in this encounter Visit Diagnoses Not on filedocumented in this encounter Care Teams Degreasing Wheel Operator Relationship Specialty Start Date End Date Tami Olivia [address] [place] [id number] PCP - General 12/04/19 documented as of this encounter
--- OUTSIDE RECORDS SUMMARY | 2023-12-11 17:37 | XMS_ITS | Encounter Summary ---
Author Organization [facility] Address [facility] [place] [address] Care Team Providers Care Clinic Licensed Practical Nurse Name Role Phone SudhakarJacksonTami Primary Care Provider [phone] Reason for Referral * Diagnostic Test (Routine) - Closed Specialty Diagnoses / Procedures Referred By Bert gautam Referred To Contact Radiology Diagnoses Mass of upper lobe of left lung Pre-operative cardiovascular examination, high risk surgery Procedures MRI Brain wwo Contrast (Generic) Gilmer Foster MD [facility] [place] [address] [place] [address] Referral ID Status Reason Start Date Expiration Date V isits Requested Visits Authorized [id number] Closed Specialty Service Requested 01/16/2021 07/16/2022 1 1 * Diagnostic Test (Routine) - Specialty Diagnoses / Procedures Referred By Bert gautam Referred To Contact Radiology Diagnoses Mass of upper lobe of left lung Pre-operative cardiovascular examination, high risk surgery Procedures NM Exercise Stress and Rest Myocardial Perfusion Gilmer Foster MD [facility] [place] [address] [facility] [place] [address] Referral ID Status Reason Start Date Expiration Date Visits Requested Visits Authorized [id number] Specialty Service Requested 02/09/2021 03/26/2021 4 4 * Diagnostic Test (Routine) - Closed Specialty Diagnoses / Procedures Referred By Contac t Referred To Contact Radiology Diagnoses Mass of upper lobe of left lung Pre-operative cardiovascular examination, high risk surgery Procedures NM Exercise Stress CT Component Gilmer Foster MD [facility] [place] [address] [place] [address] Referral ID Status Reason Start Date Expiration Date V isits Requested Visits Authorized [id number] Closed Specialty Service Requested 02/09/2021 03/26/2021 1 1 * Diagnostic Test (Routine) - Closed Specialty Diagnoses / Procedures Referred By Contac t Referred To Contact Radiology Diagnoses Mass of upper lobe of left lung Pre-operative cardiovascular examination, high risk surgery Procedures NM PET CT Skull Base to Mid-thigh Gilmer Foster MD [facility] [place] [address] [place] [address] Referral ID Status Reason Start Date Expiration Date V isits Requested Visits Authorized [id number] Closed Specialty Service Requested 01/27/2021 03/13/2021 1 1 Reason for Visit * Reason Comments Advice Only * Consultation (Urgent) - Closed Specialty Diagnoses / Procedures Referred By Contac t Referred To Contact Thoracic Surgery Diagnoses Other nonspecific abnormal finding of lung field Nicotine dependence, unspecified, uncomplicated Other nonspecific abnormal finding of lung field Tami Olivia [address] [place] [address] [facility] Thoracic Surg [address] [place] [id number] Referral ID Status Reason Start Date Expiration Date V isits Requested Visits Authorized [id number] Closed Consult, Test & Treat Connection [facility] PCP Updated and/or Approved 12/30/2020 12/30/2021 6 6 Encounter Details Date Type Department Care Team (Latest Contact Info) Description 01/16/2021 1:45 PM EST Office Visit [place] [address] Gilmer Foster MD [facility] [place] [address] Mass of upper lobe of left lung; Pre-operative cardiovascular examination, high risk surgery; Irregular cardiac rhythm Social History Tobacco Use Types Packs/Day Years [...] Sign Reading Time Taken Comments Blood Pressure 144/100 01/16/2021 1:38 PM EST Pulse - - Temperature - - Respiratory Rate 13 01/16/2021 1:38 PM EST Oxygen Saturation 97% 01/16/2021 1:38 PM EST Inhaled Oxygen Concentration - - Weight 94.3 kg (208 lb) 01/16/2021 1:38 PM EST Height - - Body Mass Index - - documented in this encounter Patient Instructions * Patient Instructions* Megan Reza RN - 01/16/2021 1:45 PM EST Thank you for visiting Dr. Foster in clinic 01/16/21 Dr. Foster would like to see you back in clinic in with a recent PET scan, MRI of your Brain, Nuclear Medicine Stress Test and Pulmonary Function Test. You will check in for you PET scan at Schedule Clerk area 3Z. Please refrain from eating or drinking anything except water for 6 hours before. You may take your oral diabetic medications, but PLEASE do not take your long acting insulin injection for 6 hours prior to your PET scan. Please do not eat any GUM or MINTS or use toothpaste either. Please do not perform any heavy exercise such as jogging, skiing, tennis, etc. for at least 24 hours prior If you do eat or drink anything, your test will be canceled and rescheduled for a later date. You will check in for your MRI at Schedule Clerk area 3Z. Please remember to remove all jewelry and nailpolish prior to your appointment. You are scheduled for a radionuclide Stress Test and it is very important for you to follow these instructions to prepare for this test. *Do not consume anything with caffeine for 12 hours before the test. Examples of drugs containing caffeine: ? Some over the counter pain pills, such as Anacin, Excedrin, Midol Gelprin ? Some non narcotic pain pills, such as Fiorinal and Fioricet ? Some over the counter stimulants, such as No Doz, Vivarin, Caffedrine Examples of drinks or food with caffeine included: ? Coffee and tea ? Marce and most soft drinks (those without caffeine that you may drink are clubb soda, sparkling water, luis joe, sprite and tonic water) ? Chocolate in drinks or food Do not drink liquids that say ???decaffeinated?? or ???decaf?? since they often contain small amounts of caffeine. Do not drink herbal teas since some of them contain caffeine. *Do not perform any heavy exercise, such as jogging or tennis, for at least 24 hours before the test. *Do not smoke for 3 hours before the test. *Do not eat or drink anything (except your medicines with a sip of water) for three hours before your test. Food causes some changes in the electrocardiogram (ECG) and the radionuclide images that make them hard to interpret. Also you can have nausea when you exercise after eating. *Take your usual medicines wit a sip of water before the test unless your doctor tells you not to. If you have been asked to omit any of your medicines, bring them with you so you can take them whentold to do so. Please bring with you a current list of the medicines you are currently taking. *Dress in clothes that are comfortable for exercising. Men are asked to remove all clothing from the waist up and wear a hospital gown during the test. Women coming from home are asked to wear a short sleeved, loose fitting t-shirt and pants. The shirt and bra can be kept on during the exercise test and scans. If you are a patient in the hospital, johnie moeller top and bottoms. All persons should bring with them: ? Socks ? Comfortable walking shoes ? Eyeglasses, if needed for reading ? Hearing aid If you weigh more than 300 pounds please call [phone] weekdays 8 to 4pm and tell the appointment secretary receptionist. This information will help us choose the best way to schedule your test. *If you have diabetes and take insulin, tell the secretary receptionist scheduling your appointment. We need to work out the best time to schedule your exercise test around your insulin and meals. Also talk with your doctor about the dose of insulin you should take on the day of the test. Exercise lowers your blood sugar, as does insulin, so we want to make sure you don???t get symptoms of hypoglycemia (low blood sugar). *If you are having the type of test where your heart is stressed with a medicine instead of exercise, stop any theophylline containing medications for 72 hours before the test. Examples of these drugs are: ? Aggrenox ? Dipyridamole ? Elixophyllin ? Persantine ? Primatene tablets ? Quibron ? Slo-phyllin ? Tomi-Dur ? Uniphyl If you cannot stop your theophylline containing medications before the test, talk with your doctor. If you need to cancel the test for any reason or even think you won???t be able to make your appointment, call us at least 24 hours in advance at . This office is open Saturday through Saturday 8:00 am to 5:00pm. Please check in at the 3 medical receptionist medical assistant desk on the day of your test. You will be having a stress test. A stress test shows how well your heart works with increased demands on it. You will check in for your stress test at Schedule Clerk area 3Z. You must refrain from eatingor drinking anything for 3 hours prior to your check in time. Additionally, you must refrain from eating or drinking any item that may contain caffeine for 12 hours prior to your check in time. This includes NO GUM. MINTS, TIC TACS - ANY FOOD. Our nurse will contact you with special instructions regarding your daily medications, if they need to be taken differently prior to the testing. Failure to adhere to these guidelines will result in your testing being canceled and rescheduled to a later date. Pulmonary function tests (PFTs) are noninvasive tests that show how well the lungs are working. Thetests measure lung volume, capacity, rates of flow, and gas exchange. This information can help your healthcare provider diagnose and decide the treatment of certain lung disorders. You will check [facility] Schedule Clerk area 5C for your Pulmonary Function Testing. This testing will take less than one hour. ?? Exercise each day for 30 minutes or [...] in this encounter Progress Notes * Gilmer Foster MD - 01/16/2021 1:45 PM EST Thoracic surgery new patient evaluation I saw and examined Mr. Marquez with STEVE Brooks, and agree with her findings, assessment and plan. In brief: Chief complaint: Left upper lobe lung nodule History of present illness: Mr. Marquez is a 70-year-old man with a [id number] smoking history who had a screening chest CT due to his tobacco use in December 2020 and was discovered to have a 2.8 cm spiculated nodule in the upper lobe of the left lung. He is referred to me for further evaluation. The nodule is asymptomatic. He continues to smoke 1 pack of cigarettes per day. Past Medical History: Diagnosis Date ??? BPH (benign prostatic hyperplasia) ??? COPD (chronic obstructive pulmonary disease) ??? Coronary artery disease ??? GERD (gastroesophageal reflux disease) ??? Hypertension ??? Synovitis There is no problem list on file for this patient. Past Surgical History: Procedure Laterality Date ??? APPENDECTOMY Social History Socioeconomic History ??? Marital status: Spouse name: Not on file ??? Number of children: Not on file ??? Years of education: Not on file ??? Highest education level: Not on file Occupational History ??? Not on file Tobacco Use ??? Smoking status: Current Every Day Smoker Packs/day: 2.00 Years: 50.00 Pack years: 100.00 ??? Smokeless tobacco: Never Used ??? Tobacco comment: 1 ppd for the past year Vaping Use ??? Vaping Use: Never used Substance and Sexual Activity ??? Alcohol use: Not on file ??? Drug use: Not on file ??? Sexual activity: Not on file Other Topics Concern ??? Not on file Social History Narrative ??? Not on file Social Determinants of Health Financial Resource Strain: Not on file Food Insecurity: Not on file Transportation Needs: Not on file Physical Activity: Not on file Housing Stability: Not on file Current Outpatient Medications on File Prior to Visit Medication Sig Dispense Refill ??? lisinopriL (Zestril) 5 mg Tablet Take 10 mg by mouth daily. One tab daily ??? aspirin EC 81 mg Tablet, Delayed Release (E.C.) Take 81 mg by mouth daily. ??? bupropion HCl (WELLBUTRIN ORAL) Take by mouth. ??? omeprazole (PriLOSEC) 20 mg Capsule, Delayed Release(E.C.) Daily. ??? hydrOXYchloroQUINE (Plaquenil) 200 mg Tablet Daily. ??? cholecalciferol, Vitamin D3, (Vitamin D3) 1,000 unit Tablet Take 1 tablet by mouth. ??? tamsulosin (Flomax) 0.4 mg Capsule every 24 hours. ??? fluticasone furoate-vilanteroL (Breo Ellipta) 200-25 mcg/dose Disk with Device Daily. ??? albuterol sulfate (Proair Digihaler) 90 mcg/actuation aero powdr breath act w/sensor Every 4 hours. No current facility-administered medications on file prior to visit. BP (!) 144/100 (Patient Position: Sitting) Resp 13 Wt 94.3 kg (208 lb) SpO2 97% Physical exam: He appears comfortable. He has no neurologic deficits. He has no palpable adenopathy. His lungs are clear, his heart is regular and his abdomen is nontender and nondistended. Imaging: I reviewed with the patient his screening chest CT dated December 23 which demonstrates a spiculated 2.8 cm left upper lobe lung nodule highly suspicious for adenocarcinoma. In retrospect there is a tiny nodule at this location on his previous CT dated September 17 Assessment: 70-year-old man with a spiculated left upper lobe lung nodule demonstrating growth overa 1 year period. He is a current cigarette smoker although his functional status is adequate. I recommended completing his staging work-up with a PET/CT and brain MRI, and functional assessment with pulmonary function testing and cardiac stress test. Plans for further staging tests versus surgical management versus stereotactic radiation therapy will be made from there. Plan: PET/CT, brain MRI, pulmonary function testing, cardiac stress test GILMER FOSTER MD documented in this encounter H&P Notes * Matt Wan PA - 01/16/2021 1:45 PM EST Images from the original note were not included. Thoracic Surgery Outpatient Consultation Note MD Matt Fischer PA [place] [address] Date of Consultation: 01/16/2021 This consultation has been requested by PCP: Tami Olivia Referring Physician: Tami Olivia [address] [place] [id number] Purpose for Consultation: Spiculated 2.8 cm ARACELI lung nodule concerning for primary lung malignancy HPI: Rajan Marquez is a 70 y.o. male with an approximate 100 PY smoking history (2 ppd x 50 years, currently smoking 1 ppd for the past year) and PMHx significant for CAD, hypertension, COPD, depression, GERD, BPH, and synovitis presenting with a spiculated 2.8 cm left upper lobe lung nodule suspicious for primary lung malignancy. Lung cancer screening CT scan in 2019 showed a 5 mm LLL lung nodule. Screening CT scan in 12/2020 showed stability of the LLL subcentimeter nodule, however there was a new2.8 cm spiculated nodule in the ARACELI. He has been referred to us for further evaluation. Overall, Rajan Marquez reports that he is feeling well. He denies fever, chills, nausea, vomiting, change in appetite, unintentional weight loss, or flulike symptoms. Past Medical History: Past Medical History: Diagnosis Date ??? BPH (benign prostatic hyperplasia) ??? COPD (chronic obstructive pulmonary disease) ??? Coronary artery disease ??? GERD (gastroesophageal reflux disease) ??? Hypertension ??? Synovitis Past Surgical History: Past Surgical History: Procedure Laterality Date ??? APPENDECTOMY Medications: Outpatient Medications Marked as Taking for the 01/16/21 encounter (Office Visit) with Gilmer Foster MD Medication Sig Dispense Refill ??? lisinopriL (Zestril) 5 mg Tablet Take 10 mg by mouth daily. One tab daily ??? aspirin EC 81 mg Tablet, Delayed Release (E.C.) Take 81 mg by mouth daily. ??? bupropion HCl (WELLBUTRIN ORAL) Take by mouth. ??? omeprazole (PriLOSEC) 20 mg Capsule, Delayed Release(E.C.) Daily. ??? hydrOXYchloroQUINE (Plaquenil) 200 mg Tablet Daily. ??? cholecalciferol, Vitamin D3, (Vitamin D3) 1,000 unit Tablet Take 1 tablet by mouth. Allergies: Not on File Family History: Family History Problem Relation Age of Onset ??? Myocardial Infarction Father Social History: Social History Socioeconomic History ??? Marital status: Spouse name: Not on file ??? Number of children: Not on file ??? Years of education: Not on file ??? Highest education level: Not on file Occupational History ??? Not on file Tobacco Use ??? Smoking status: Current Every Day Smoker Packs/day: 2.00 Years: 50.00 Pack years: 100.00 ??? Smokeless tobacco: Never Used ??? Tobacco comment: 1 ppd for the past year Vaping Use ??? Vaping Use: Never used Substance and Sexual Activity ??? Alcohol use: Not on file ??? Drug use: Not on file ??? Sexual activity: Not on file Other Topics Concern ??? Not on file Social History Narrative ??? Not on file Social Determinants of Health Financial Resource Strain: Not on file Food Insecurity: Not on file Transportation Needs: Not on file Physical Activity: Not on file Housing Stability: Not on file Review of Systems: Pertinent positives as documented per HPI. Patient denies WA/stroke/TIA/DVT/PE/cancer, problems with kidneys/liver/bleeding/anesthesia, fevers, chills, sweats, weight loss, fatigue, headaches, dizziness, lightheadedness, changes in vision or hearing, chest pain, palpitations, orthopnea, cough, productive cough, hemoptysis, SOB, dyspnea, PRIEST, pleurisy, wheezing, sore throat, dysphagia, odynophagia, nausea, vomiting, hematemesis, abdominal pain, constipation, diarrhea, BRBPR, melena, dysuria, burning, hematuria, paresthesias, cyanosis, edema. Physical Exam: BP (!) 144/100 (Patient Position: Sitting) Resp 13 Wt 94.3 kg (208 lb) SpO2 97% General Appearance: Alert, cooperative, no distress, appears stated age HEENT: PERRL, MMM, non-icteric Neck: Supple, symmetrical, trachea midline, no adenopathy; thyroid: not enlarged, symmetric, no tenderness/mass/nodules; no carotid bruit or JVD Lungs: Clear to auscultation bilaterally, No wheezes, crackles or ronchi, non- labored breathing on RA Heart: Ectopic beats noted, I-II/ systolic murmur appreciated. No R/G appreciated Abdomen: Soft, non-tender, non-distended, BS+ Extremities: Extremities normal, no cyanosis, clubbing. No edema Neurologic: Alert, oriented, conversant, nonfocal. Musculoskeletal: 5/5 throughout with normal gait Diagnostics: We have independently visualized all relevant imaging studies, including: CT Lung Cancer Screening (09/18/2019): CT Lung Cancer Screening (12/23/2020): Assessment: Rajan Marquez is a 70 y.o. male with an enlarging, spiculated ARACELI lung nodule concerning for primary lung cancer - clinically cT1cN0, stage IA3. Plan of Management: 1. PET/CT for staging 2. Brain MRI for staging given size of 2.8 cm 3. EKG to evaluate ectopic beats heard on today's physical exam 4. PFTs 5. Cardiac stress test for perioperative risk assessment given his age and comorbidities 6. Encouraged smoking cessation - Rajan Marquez states that he is motivated to quit, and he will meet with our smoking cessation specialist later today. 7. Recommend minimum of 30 minutes of exercise daily 8. Please call with any questions or concerns at any time 9. Follow-up after the above have been completed to review the results and establish a treatment plan. All plans formulated in discussion with and directed by attending thoracic surgeon Dr. Foster. STEVE Arriaga 01/16/2021 Thoracic Surgery [facility] documented in this encounter Plan of [...] lung Pre-operative cardiovascular examination, high risk surgery EKG 12-LEAD Routine 01/16/2021 2:36 PM EST Mass of upper lobe of left lung Pre-operative cardiovascular examination, high risk surgery Irregular cardiac rhythm documented in this encounter Results * Pulmonary [...] / FVC LLN 63 % COMPAS PFT [id number] Actual Pre-BD 3.63 L/s COMPAS PFT [id number] Pre-BD % of Predicted 159 % COMPAS PFT [id number] Predicted 2.29 L/s COMPAS PFT [id number] Pre-BD Z-Score 1.24 COMPAS PFT DLCO Hb [...] IMPRESSION: Normal spirometry. No diffusion impairment. Gilmer Foster MD PFT ORDERABLES COMPAS PFT * NM Exercise Stress CT Component (02/13/2021 12:09 PM EST) Anatomical Region Laterality Modality Nuclear Medicine Narrative 02/13/2021 4:12 PM EST EXAMINATION: NM EXERCISE STRESS CT COMPONENT CLINICAL HISTORY: Study performed for attenuation correction of the myocardial perfusion scan. TECHNIQUE: A limited field of view, non-contrast, non-breath hold, low dose CT scan of the region surrounding the myocardium was performed for the purpose of attenuation correction of the myocardial perfusion scan. COMPARISON: None INCIDENTAL CT FINDINGS: Mild aortic calcification. Thank you for letting us participate in the care of this patient. ??If you are a health care provider and have any questions regarding this report, please contact the number below. ??For patients who have questions please contact the health medicare insurance specialist that requested your imaging first. ? Electronically signed by: Marcus Edwards MD, [facility] ([phone]), at 02/13/2021 4:12 PM Procedure Note Marcus Edwards MD - 02/13/2021 EXAMINATION: NM EXERCISE STRESS CT COMPONENT CLINICAL HISTORY: Study performed for attenuation correction of themyocardial perfusion scan. TECHNIQUE: A limited field of view, non-contrast, non-breath hold, lowdose CT scan of the region surrounding the myocardium was performed for thepurpose of attenuation correction of the myocardial perfusion scan. COMPARISON: None INCIDENTAL CT FINDINGS: Mild aortic calcification. Thank you for letting us participate in the care of this patient. If youare a health care provider and have any questions regarding this report,please contact the number below. For patients who have questions please contactthe health medicare insurance specialist that requested your imaging first. Electronically signed by: Marcus Edwards MD, [facility]([phone]), at 02/13/2021 4:12 PM Gilmer Foster MD IMG NM ORDERABLE S * Nuclear Exercise Stress Cardiology (02/13/2021 11:50 AM EST) Anatomical Region Laterality Modality Other Gilmer Foster MD CARDIAC SERVICES ORDERABLES * NM Exercise Stress and Rest Myocardial Perfusion (02/13/2021 11:47 AM EST) Anatomical Region Laterality Modality Nuclear Medicine Impressions 02/13/2021 3:29 PM EST Normal perfusion imaging. No ischemia or scar. ??Left ventricular function is normal. Preliminary report signed by: Ramon Nielsen at 02/13/2021 3:11 PM I have personally reviewed the image(s) and the resident's interpretation and agree with the findings, TIERA TORRES MD at 02/13/2021 3:29 PM Thank you for letting us participate in the care of this patient. ??If you are a health care provider and have any questions regarding this report, please contact the number below. ??For patients who have questions please contact the health medicare insurance specialist that requested your imaging first. ? Electronically signed by: TIERA TORRES MD, [facility] ([phone]), at 02/13/2021 3:29 PM Narrative 02/13/2021 3:29 [...] % (normal greater than 50%) Procedure Note Tiera Torres MD - 02/13/2021 EXAMINATION: NM EXERCISE STRESS [...] the resident's interpretationand agree with the findings, TIERA TORRES MD at 02/13/2021 3:29 PM Thank you for letting us participate in the care of this patient. If youare a health care provider and have any questions regarding this report,please contact the number below. For patients who have questions please contactthe health medicare insurance specialist that requested your imaging first. Electronically signed by: TIERA TORRES MD, [facility]([phone]), at 02/13/2021 3:29 PM Gilmer Foster MD IMG NM ORDERABLE S * (ABNORMAL) NM PET CT Skull Base to Mid-thigh (02/10/2021 10:29 AM EST) Anatomical Region Laterality Modality Positron Emissio n Tomography (PET) Impressions 02/10/2021 3:25 PM EST 1. ??FDG avid spiculated 2.5 cm left upper lobe pulmonary nodule increased from subcentimeter size on CT of 09/18/2019 and highly suspicious for primary lung malignancy. 2. ??No regional nakul or distant sites of metastasis. 3. ??CT visualized sub-7 mm pulmonary nodules in the left lower, anterior left upper, and anterior right middle lobes, unchanged in size compared to chest CT of 09/18/2019, favored to represent benign nodules. Attention on follow-up recommended. 4. ??Small FDG avid lesion in the posterior left lobe of prostate, consistent with focal inflammation versus prostatic malignancy. Please correlate with clinical exam and PSA. 5. ??Asymmetrically increased FDG uptake in the left lateral pharyngeal wall, with no definite CT abnormality. This may represent asymmetric lymphoid hyperplasia or inflammation, however, a neoplastic process is not excluded. Recommend ENT consultation. 6. ??Unexpected finding. I have personally reviewed the image(s) and the resident's interpretation and agree with the findings, Fei Larson MD at 02/10/2021 3:25 PM Thank you for letting us participate in the care of this patient. ??If you are a health care provider and have any questions regarding this report, please contact the number below. ??For patients who have questions please contact the health medicare insurance specialist that requested your imaging first. ? Electronically signed by: Fei Larson MD, [facility] ([phone]), at 02/10/2021 3:25 PM Narrative 02/10/2021 3:25 PM EST EXAMINATION: NM PET CT STANDARD SKULL BASE TO MID-THIGH CLINICAL HISTORY: 70-year-old male with left upper lobe mass presenting for metastatic disease evaluation TECHNIQUE: Following IV injection of 77-mdaerl-5-deoxyglucose (FDG) a standard uptake of approximately 60 minutes, a noncontrast CT scan followed by a PET scan were acquired from the base of the skull to mid thighs. The noncontrast CT was used for anatomic localization and photon attenuation correction of the PET scan. Blood glucose level: 90 mg/dL FDG dose: 14.1 mCi COMPARISON: Chest CT on 12/23/2020 and 09/18/2019 FINDINGS: HEAD/NECK: Asymmetrically increased FDG uptake in the left lateral pharyngeal wall with no definite CT abnormality. No adenopathy. CHEST: FDG avid spiculated 2.5 cm left upper lobe pulmonary nodule (axial image 61) with small amount of surrounding groundglass opacities, unchanged in size compared to chest CT of 12/23/2020 but increased from subcentimeter size on chest CT of 09/18/2019. CT visualized 5 mm left lower lobe pulmonary nodule (axial image 95), unchanged in size compared to chest CT on 09/18/2019. Sub-5 mm pulmonary nodules in the anterior left upper lobe (axial image 72) and in the anterior right middle lobe (axial image 108), unchanged compared to CT of 09/18/2019 No adenopathy. Coronary and aortic calcifications present. ABDOMEN/PELVIS: Small FDG avid lesion in the posterior left lobe of prostate (axial image 247). No adenopathy. Bilateral nodular enlargement of the adrenals with no abnormal activity. SKELETON/EXTREMITIES: Normal activity in all regions of the axial and visualized appendicular skeleton. Resulting Agency Comment Unexpected Finding Gilmer Foster MD IMG PET ORDERABL ES * MRI Brain wwo Contrast (Generic) (02/10/2021 [...] have questions please contact the health medicare insurance specialist that requested your imaging first. ? Electronically signed by: Ness Murillo MD, [facility] ([phone]), at 02/10/2021 3:23 PM Narrative 02/10/2021 3:23 PM EST EXAMINATION: MRI [...] who have questions please contactthe health medicare insurance specialist that requested your imaging first. Electronically signed by: Ness Murillo MD, [facility]([phone]), at 02/10/2021 3:23 PM Gilmer Foster MD IMG MRI ORDERABL ES * EKG 12 Lead (01/16/2021 2:36 PM EST) Ventricular rate 81 BPM MUSE SYSTEM Atrial Rate 81 BPM MUSE SYSTEM P-R Interval 168 ms MUSE SYSTEM QRS Duration 104 ms MUSE SYSTEM Q-T Interval 402 ms MUSE SYSTEM QTC Calculated (Bezet) 466 ms MUSE SYSTEM Calculated P [place] 79 degrees MUSE SYSTEM Calculated R [place] 99 degrees MUSE SYSTEM Calculated T [place] 15 degrees MUSE SYSTEM INTERPRETATION Sinus rhythm with Premature atrial complexes Rightward axis Borderline ECG No previous ECGs available Confirmed by Cindy Walker ([id number]) on 01/16/2021 6:40:13 PM MUSE SYSTEM 01/16/2021 2:36 PM EST 01/16/2021 6:40 PM EST Gilmer Foster MD ECG ORDERABLES MUSE SYSTEM documented in this encounter Visit Diagnoses Diagnosis Mass of upper lobe of left lung Pre-operative cardiovascular examination, high risk surgery Pre-operative cardiovascular examination Irregular cardiac rhythm Cardiac dysrhythmia, unspecified Mass of upper lobe of left lung Pre-operative cardiovascular examination, high risk surgery Pre-operative cardiovascular examination Mass of upper lobe of left lung Pre-operative cardiovascular examination, high risk surgery Pre-operative cardiovascular examination Mass of upper lobe of left lung Pre-operative cardiovascular examination, high risk surgery Pre-operative cardiovascular examination Mass of upper lobe of left lung Pre-operative cardiovascular examination, high risk surgery Pre-operative cardiovascular examination Mass of upper lobe of left lung Pre-operative cardiovascular examination, high risk surgery Pre-operative cardiovascular examination documented in this encounter Care Teams Clinic Licensed Practical Nurse Relationship Specialty Start Date End Date KobejaylamarTami Desir [address] [place] [address] PCP - General Family Medicine 12/30/20 documented as of this encounter
--- OUTSIDE RECORDS SUMMARY | 2023-12-11 17:37 | XMS_ITS | Encounter Summary ---
Author Organization [facility] Address [address] [place] [address] Care Team Providers Care Refinery Operator Name Role Phone Tami Olivia Primary Care Provider [phone] Reason for Visit * Reason Onset Date Comments Medications Refill 05/10/2020 Encounter Details Date Type Department Care Team (Late st Contact Info) Description 05/10/2020 Refill [facility] [place] [address] [place], [place] [id number] Rowena Ornelas MD [address] [facility] [address] [place] [phone] Medications Refill Social History Tobacco Use Types [...] on filedocumented in this encounter Care Teams Refinery Operator Relationship Specialty Start Date End Date Tami Olivia [address] [place] [id number] PCP - General 12/04/19 documented as of this encounter
--- OUTSIDE RECORDS SUMMARY | 2023-12-11 17:37 | XMS_ITS | Encounter Summary ---
Author Organization [facility] Address [address] [place] [address] Care Team Providers Care Spike Maker Name Role Phone Tami Olivia Primary Care Provider [phone] Reason for Visit * Reason Comments Medication Management Doing well, no com plaints. Encounter Details Date Type Department Care Team (Late st Contact Info) Description 05/08/2023 13:15 EST Office Visit [facility] [place] Rheumatology [address] [place], [place] [id number] Mena Ng MD [address] [facility] [address] [place] [phone] RS3PE syndrome (Primary Dx); High risk medication use Social History Tobacco Use Types Packs/Day Years [...] * Patient Instructions* Mena Ng MD - 05/08/2023 13:15 EST 1 Continue hydroxychloroquine at 200 mg a day Eye exam every year See you in August 2024 Please call if there are any changes or concerns. documented in this encounter Ordered Prescriptions Prescription Sig Dispensed Refills Start Date End Da te hydroxychloroquine (PLAQUENIL) 200 mg tabletIndications:RS3PE syndrome TAKE 1 TABLET BY MOUTH ONCE DAILY 90 Tablet 3 05/08/2023 documented in this encounter Progress Notes * Mena Ng MD - 05/08/2023 1315 EST [facility] [place] -Rheumatology follow up Chief Complaint Patient presents with Medication Management Doing well, no complaints. Rheumatology problem list Tobacco abuse PMR -?RS3PE -Dr Riddle -RF neg -CCP neg -hydroxychloroquine 200 mg/day Hard of hearing COPD Squamous Cell Carcinoma of the left lung [place] [place]/20[place]-lobectomy -recurrent left pleural effusion. HPI Doing well Has regained a lot of strength since cancer dx Had a fib in summer, ablation successful Minimal sob His arthritis and skin are stable No swelling in hands. No mouth sores. Eye exam in 2022 stable Allergies include: Cat dander and Dog dander Current Outpatient Medications Medication acetaminophen (TYLENOL) 500 mg tablet albuterol 90 mcg/actuation inhaler amiodarone (PACERONE) 200 mg tablet aspirin 81 mg EC tablet buPROPion (WELLBUTRIN XL) 150 mg XL tablet ergocalciferol, vitamin D2, (VITAMIN D ORAL) fluticasone furoate-vilanteroL 100-25 mcg/dose blister with device hydroxychloroquine (PLAQUENIL) 200 mg tablet lisinopriL (PRINIVIL) 20 mg tablet metoprolol SUCCinate (TOPROL-XL) 25 mg tablet omeprazole (PRILOSEC) 20 mg capsule rivaroxaban (XARELTO) 20 mg tablet tablet sildenafil citrate (VIAGRA) 50 mg tablet SPIRIVA RESPIMAT 2.5 mcg/actuation inhalation mist TAMSulosin (FLOMAX) 0.4 mg capsule No current facility-administered medications for this visit. Past Medical History: Diagnosis Date Conductive hearing loss, bilateral ROS Negative except as in hpi. PHYSICAL EXAMINATION: There were no vitals taken for this visit. Physical Exam Vitals and nursing note reviewed. Constitutional: Appearance: He is ill-appearing. Comments: thin HENT: Head: Normocephalic and atraumatic. Nose: Nose normal. Eyes: Conjunctiva/sclera: Conjunctivae normal. Cardiovascular: Rate and Rhythm: Normal rate. Pulmonary: Comments: Decreased bs on left side. No rectations. Musculoskeletal: Cervical back: Normal range of motion. Comments: No synovitis bilateral hands. Slight hyperextension right fourth PIP elbows and shouldersunremarkable. Right hip externally rotated minimal tenderness. Skin: General: Skin is warm and dry. Neurological: General: No focal deficit present. Mental Status: He is alert and oriented to person, place, and time. Comments: Intention tremor. Psychiatric: Mood and Affect: Mood normal. Behavior: Behavior normal. ASSESSMENT AND PLAN Rajan Marquez is a 72 y.o. male with RS#PE, dx with heather lung cancer in 03/2021 Has recurrent pleural effusion, + APLAB. On hydroxychloroquine with his arthritis stable continue 200 mg /day. Previously weight adjusted, has regained weight but will keep at this dose. RS3PE -recent dx lung ca in 2021 -hydroxychloroquine 200 mg a day -Plaquenil prescribed per current guidelines. Dose 5mg/Kg or less. On for > 5 years rx 200 mg/day annual eye exam uptodate RTC 18 months. Mena Ng MD 05/08/2023 13:07 documented in this encounter Plan of Treatment Not on file documented as of this encounter Visit Diagnoses Diagnosis RS3PE syndrome- Primary Polymyalgia rheumatica High risk medication use Encounter for long-term (current) use of other medications documented in this encounter Discontinued Medications Medication Sig Discontinue Reason Start Date End Da te hydroxychloroquine (PLAQUENIL) 200 mg tabletIndications:RS3PE syndrome TAKE 1 TABLET BY MOUTH ONCE DAILY Reorder 04/10/2023 05/08/2023 documented as of this encounter Care Teams Spike Maker Relationship Specialty Start Date End Date Tami Olivia [address] [place] [id number] PCP - General 12/04/19 documented as of this encounter
--- OUTSIDE RECORDS SUMMARY | 2023-12-11 17:37 | XMS_ITS | Encounter Summary ---
Author Organization [facility] Address [address] [place] [address] Care Team Providers Care Business Support Coordinator Name Role Phone Tami Olivia Primary Care Provider [phone] Reason for Visit * Reason Comments Other Encounter Details Date Type Department Care Team (Late st Contact Info) Description 10/14/2021 Refill [facility] [place] [address] [place] [address] Mena Ng MD [address] [facility] [address] [place] [address] Other Social History Tobacco Use Types Packs/Day [...] syndrome TAKE 1 TABLET BY MOUTH DAILY 90 Tablet 3 10/16/2021 04/20/2022 documented in this encounter Miscellaneous Notes * Telephone Encounter - Renu Son RN - 10/16/2021 0848 EDT Last visit note reviewed and follow up scheduled for 12/07/21. Labs up to date. Refill sent as noted. documented in this encounter Plan of Treatment Not on file documented as of this encounter Visit Diagnoses Diagnosis RS3PE syndrome- Primary Polymyalgia rheumatica documented in this encounter Discontinued Medications Medication Sig Discontinue Reason Start Date End Da te hydrOXYchloroQUINE (PLAQUENIL) 200 mg tabletIndications:RS3PE syndrome 1 tab daily 12/07/2020 10/16/2021 documented as of this encounter Care Teams Business Support Coordinator Relationship Specialty Start Date End Date Tami Olivia [address] [place] [id number] PCP - General 12/04/19 documented as of this encounter
--- OUTSIDE RECORDS SUMMARY | 2023-12-11 17:37 | XMS_ITS | Encounter Summary ---
Author Organization [facility] Address [facility] [place] [address] Care Team Providers Care Customer Care Agent Name Role Phone SudhakarJacksonTami Primary Care Provider [phone] Reason for Referral * Diagnostic Test (Routine) - Closed Specialty Diagnoses / Procedures Referred By Contac t Referred To Contact Radiology Diagnoses Mass of upper lobe of left lung Pre-operative cardiovascular examination, high risk surgery Procedures NM PET CT Skull Base to Mid-thigh Gilmer Gutiérrez MD [facility] [place] [address] [place] [address] Referral ID Status Reason Start Date Expiration Date V isits Requested Visits Authorized [id number] Closed Specialty Service Requested 01/27/2021 03/13/2021 1 1 Reason for Visit * Diagnostic Test (Routine) - Closed Specialty Diagnoses / Procedures Referred By Contac t Referred To Contact Radiology Diagnoses Mass of upper lobe of left lung Pre-operative cardiovascular examination, high risk surgery Procedures NM PET CT Skull Base to Mid-thigh Gilmer Gutiérrez MD [facility] [place] [address] [place] [address] Referral ID Status Reason Start Date Expiration Date V isits Requested Visits Authorized [id number] Closed Specialty Service Requested 01/27/2021 03/13/2021 1 1 Encounter Details Date Type Department Care Team (Latest Contact Info) Description 02/10/2021 8:41 AM EST Hospital Encounter [place] [phone] Gilmer Gutiérrez MD [facility] [place] [address] Mass of upper lobe of left lung; [...] surgery documented in this encounter Results * (ABNORMAL) NM PET CT Skull Base [...] who have questions please contact the health home health aide caregiver that requested your imaging first. ? Narrative 02/10/2021 3:25 PM EST EXAMINATION: NM PET CT STANDARD SKULL BASE TO MID-THIGH CLINICAL HISTORY: 70-year-old male with left upper lobe mass presenting for metastatic disease evaluation TECHNIQUE: Following IV injection of 21-baskdq-3-deoxyglucose (FDG) a standard uptake of approximately 60 [...] skeleton. Resulting Agency Comment Unexpected Finding Gilmer Gutiérrez MD IMG PET ORDERABL ES documented in this encounter Visit Diagnoses Diagnosis Mass of upper lobe of left lung Pre-operative cardiovascular examination, high risk surgery Pre-operative cardiovascular examination documented in this encounter Administered Medications Inactive Administered Medications - up to 3 most recent administrations Medication Order MAR Action Action Date Dose Rate Site fludeoxyglucose (F-18) FDG injection 0-20 mCi 0-20 mCi, Intravenous, ONCE PRN, 1 dose, Starting on Sat02/10/21 at 0919, Until Sat02/10/21 at 0915, Per Protocol, Radiology Contrast, Routine Given 02/10/2021 9:15 AM EST 14.1 mCi Left Arm documented in this encounter Care Teams Customer Care Agent Relationship Specialty Start Date End Date Tami Olivia [address] [place] [address] PCP - General Family Medicine 12/30/20 documented as of this encounter
--- OUTSIDE RECORDS SUMMARY | 2023-12-11 17:37 | XMS_ITS | Encounter Summary ---
Author Organization [facility] Address [address] [place] [address] Care Team Providers Care Child Support Agent Name Role Phone Tami Olivia Primary Care Provider [phone] Reason for Visit * Reason Comments Follow-up RS3PE syndrome, hand + joint pain - 1yr. Pt states feeling good as far as RA. Has had cancer, feeling very weak. New pharmacy-check? Encounter Details Date Type Department Care Team (Late st Contact Info) Description 04/20/2022 11:45 EST Office Visit [facility] Rheumatology [address] [place], [place] [phone] Mena Ng MD [address] [facility] [place] [address] RS3PE syndrome (Primary Dx); RS3PE syndrome Social History Tobacco Use Types Packs/Day Years [...] (97.3 ??F) 04/20/2022 1130 EST Respiratory Rate - - Oxygen Saturation - - Inhaled Oxygen Concentration - - Weight 70.3 kg (155 lb) 04/20/2022 1130 EST Height 173.4 cm (5' 8.25) 04/20/2022 1130 EST Body Mass Index 23.4 04/20/2022 1130 EST documented in this encounter Functional Status Functional [...] * Patient Instructions* Mena Ng MD - 04/20/2022 11:45 EST Continue Hydroxychloroquine at one pill a day See you in a year. documented in this encounter Ordered Prescriptions Prescription Sig Dispensed Refills Start Date End Da te hydrOXYchloroQUINE (PLAQUENIL) 200 mg tabletIndications:RS3PE syndrome TAKE 1 TABLET BY MOUTH DAILY 90 Tablet 3 04/20/2022 04/10/2023 documented in this encounter Progress Notes * Mena Ng MD - 04/20/2022 1145 EST [facility] [place] -Rheumatology follow up Chief Complaint Patient presents with ??? Follow-up RS3PE syndrome, hand + joint pain - 1yr. Pt states feeling good as far as RA. Has had cancer, feeling very weak. New pharmacy-check? Rheumatology problem list Tobacco abuse PMR -?RS3PE -Dr Riddle -RF neg -CCP neg -hydroxychloroquine 200 mg/day Hard of hearing COPD Squamous Cell [place] [place]obectomy -recurrent left pleural effusion. HPI Rajan Marquez is here in follow up . New diagnosis of squamous cell [place] lung [place]20[place] [facility] Allergies include: Cat dander and Dog dander Current Outpatient Medications Medication ??? acetaminophen (TYLENOL) 500 mg tablet ??? albuterol 90 mcg/actuation inhaler ??? amiodarone (PACERONE) 200 mg tablet ??? aspirin 81 mg EC tablet ??? buPROPion (WELLBUTRIN XL) 150 mg XL tablet ??? ergocalciferol, vitamin D2, (VITAMIN D ORAL) ??? fluticasone furoate-vilanteroL 100-25 mcg/dose blister with device ??? hydrOXYchloroQUINE (PLAQUENIL) 200 mg tablet ??? lisinopriL (PRINIVIL) 20 mg tablet ??? metoprolol SUCCinate (TOPROL-XL) 25 mg tablet ??? omeprazole (PRILOSEC) 20 mg capsule ??? rivaroxaban (XARELTO) 20 mg tablet tablet ??? sildenafil citrate (VIAGRA) 50 mg tablet ??? SPIRIVA RESPIMAT 2.5 mcg/actuation inhalation mist ??? TAMSulosin (FLOMAX) 0.4 mg capsule No current facility-administered medications for this visit. Past Medical History: Diagnosis Date ??? Conductive hearing loss, bilateral ROS Negative except as in hpi. PHYSICAL EXAMINATION: BP 106/64 (BP Cuff Location: Right arm, BP Cuff Sizes: Adult, regular) Pulse 92 Temp 36.3 ??C (97.3 ??F) Ht 173.4 cm (68.25) Wt 70.3 kg (155 lb) BMI 23.40 kg/m?? Physical Exam Vitals and nursing note [...] ASSESSMENT AND PLAN Rajan Marquez is a 71 y.o. male with RS#PE, dx with heather lung cancer in 03/2021 Has recurrent pleural effusion, + APLAB. On hydroxychloroquine with his arthritis stable. RS3PE -recent dx lung ca in 2021 -200 mg a day -rtc in one year -Plaquenil prescribed per current guidelines. Dose 5mg/Kg or less. On for > 5 years rx 200 mg/day annual eye exam uptodate RTC one year Mena Ng MD 04/20/2022 11:55 documented in this encounter Plan of Treatment Not on file documented as of this encounter Visit Diagnoses Diagnosis RS3PE syndrome- Primary Polymyalgia rheumatica documented in this encounter Discontinued Medications Medication Sig Discontinue Reason Start Date End Da te hydrOXYchloroQUINE (PLAQUENIL) 200 mg tabletIndications:RS3PE syndrome TAKE 1 TABLET BY MOUTH DAILY Reorder 10/16/2021 04/20/2022 documented as of this encounter Historical Medications * This list may reflect changes made after this encounter. Medication Sig Dispensed Refills Start Date End Date acetaminophen (TYLENOL) 500 mg tablet Take 1,000 mg by mouth every 6 hours. 02/10/2022 rivaroxaban (XARELTO) 20 mg tablet tablet Take 20 mg by mouth daily. sildenafil citrate (VIAGRA) 50 mg tablet TAKE 1/2 TO 1 TABLET BY MOUTH 30 MINUTES PRIOR TO SEXUAL ACTIVITY NEEDED. MAXIMUM DAILY DOSE 2 10/09/2021 amiodarone (PACERONE) 200 mg tablet Take 200 mg by mouth daily. 03/05/2022 metoprolol SUCCinate (TOPROL-XL) 25 mg tablet Take 25 mg by mouth daily. 03/11/2022 SPIRIVA RESPIMAT 2.5 mcg/actuation inhalation mist 01/26/2022 added in this encounter Care Teams Child Support Agent Relationship Specialty Start Date End Date Tami Olivia [address] [place] [id number] PCP - General 12/04/19 documented as of this encounter
--- OUTSIDE RECORDS SUMMARY | 2023-12-11 17:37 | XMS_ITS | Encounter Summary ---
Author Organization [facility] Address [address] [place] [address] Care Team Providers Care Post Acute Care Registered Nurse Name Role Phone Tami Olivia Primary Care Provider [phone] Reason for Visit * Reason Comments Follow-up Lupus anti coag posi tive; feels a lot better; pain is weather dependent. Encounter Details Date Type Department Care Team (Late st Contact Info) Description 12/04/2019 9:45 EDT Office Visit [facility] Rheumatology [address] [place] [address] Mena Ng MD [address] [place] [address] RS3PE syndrome (Primary Dx); Encounter for long-term (current) use of medications Social History Tobacco Use Types Packs/Day Years [...] Sign Reading Time Taken Comments Blood Pressure 144/84 12/04/2019937 EDT Pulse 60 12/04/2019937 EDT Temperature 36 ??C (96.8 ??F) 12/04/2019937 EDT Respiratory Rate - - Oxygen Saturation - - Inhaled Oxygen Concentration - - Weight 94.8 kg (209 lb) 12/04/2019937 EDT Height 173.4 cm (5' 8.25) 12/04/2019937 EDT Body Mass Index 31.55 12/04/2019937 EDT documented in this encounter Functional Status [...] * Patient Instructions* Mena Ng MD - 12/04/2019 9:45 EDT Continue hydroxychloroquine Eye exam every year, Dana eye is fine See you in a year. Call if problems [facility] Patient Instructions hydroxychloroquine Pronunciation: shaina drox ee NAZARIOOR oh kwin Brand: Plaquenil What is the most important information I should know about hydroxychloroquine? Hydroxychloroquine can cause dangerous effects on your heart, especially if you also use certain other medicines. Seek emergency medical attention if you have fast or pounding heartbeats and sudden dizziness (like you might pass out). Taking hydroxychloroquine long-term or at high doses may cause irreversible damage to the retina ofyour eye that could progress to permanent vision problems. Stop taking hydroxychloroquine and call your doctor at once if you have blurred vision, trouble focusing, distorted vision, blind spots, trouble reading, changes in your color vision, increased sensitivity to light. What is hydroxychloroquine? Hydroxychloroquine is used to treat or prevent malaria, a disease caused by parasites that enter the body through the bite of a mosquito. Hydroxychloroquine is not effective against all strains of malaria, or against malaria in areas where the infection has been resistant to a similar drug called chloroquine. Hydroxychloroquine is also used to treat symptoms of rheumatoid arthritis and discoid or systemic lupus erythematosus. Hydroxychloroquine may also be used for purposes not listed in this medication guide. What should I discuss with my healthcare provider before taking hydroxychloroquine? You should not use this medicine if you are allergic to hydroxychloroquine or chloroquine. High doses or long-term use of hydroxychloroquine may cause irreversible damage to your retina (themembrane layer inside your eye that helps produce vision). This could progress to permanent vision problems. The risk of retinal damage is higher in people with pre-existing eye problems, kidney disease, or people who also take tamoxifen. Tell your doctor if you have ever had: ?? vision changes or damage to your retina caused by an anti-malaria medication; ?? heart disease, heart rhythm disorder (such as long QT syndrome); ?? diabetes; ?? a stomach disorder; ?? an allergy to quinine; ?? liver or kidney disease; ?? psoriasis; ?? alcoholism; ?? porphyria (a genetic enzyme disorder that causes symptoms affecting the skin or nervous system);or ?? a genetic enzyme deficiency called vvfmdlr-1-vojpdanir dehydrogenase (G6PD) deficiency. Tell your doctor if you are or plan to become . Malaria is more likely to cause serious illness or in a woman. Having malaria during may also increase the risk of miscarriage, stillbirth, premature delivery, and low weight. It is not known whether hydroxychloroquine will harm an unborn baby. If you are , ask your doctor about the risks of traveling to areas where malaria is common (such as [place], [place],and [place]). It may not be safe to breastfeed while using this medicine. Ask your doctor about any risk. Hydroxychloroquine is not approved for treating lupus or rheumatoid arthritis in anyone younger than 18 years old. How should I take hydroxychloroquine? Follow all directions on your prescription label and read all medication guides or instruction sheets. Use the medicine exactly as directed. Take hydroxychloroquine with a meal or a glass of milk unless your doctor tells you otherwise. To treat lupus or arthritis, hydroxychloroquine is usually taken daily. To prevent malaria: Hydroxychloroquine is usually taken once per week on the same day each week. Start taking the medicine 2 weeks before entering an area where malaria is common. Keep taking the medicine during your stay and for at least 4 weeks after you leave the area. To treat malaria: Hydroxychloroquine is usually given as one high dose followed by smaller doses during the next 2 days in a row. Use this medicine for the full prescribed length of time, even if your symptoms quickly improve. Call your doctor as soon as possible if you have been exposed to malaria, or if you have fever or other symptoms of illness during or after a stay in an area where malaria is common. Use protective clothing, insect repellents, and mosquito netting around your bed to further preventmosquito bites that could cause malaria. No medication is 100% effective in treating or preventing all types of malaria. Talk with your doctor if you have fever, vomiting, or diarrhea during your treatment. While using hydroxychloroquine, you may need frequent medical tests and vision exams. Store at room temperature away from moisture, heat, and light. What happens if I miss a dose? Call your doctor for instructions if you miss a dose. What happens if I overdose? Seek emergency medical attention or call the Poison Help line at . An overdose of hydroxychloroquine can be fatal, and must be treated quickly. Overdose symptoms may include drowsiness, vision changes, seizure, slow heart rate, weak pulse, pounding heartbeats, sudden dizziness, fainting, shortness of breath, or slow breathing (breathing may stop). Keep this medicine out of the reach of children. A hydroxychloroquine overdose can be fatal to a child who accidentally swallows this medicine. What should I avoid while taking hydroxychloroquine? This medicine may cause blurred vision and may impair your reactions. Avoid driving or hazardous activity until you know how this medicine will affect you. Avoid taking an antacid or Kaopectate (kaolin-pectin) within 4 hours before or 4 hours after you take hydroxychloroquine. What are the possible side effects of hydroxychloroquine? Get emergency medical help if you have signs of an allergic reaction (hives, difficult breathing, swelling in your face or throat) or a severe skin reaction (fever, sore throat, burning eyes, skin pain, red or purple skin rash with blistering and peeling). Also seek emergency medical attention if you have symptoms of a serious heart problem: fast or pounding heartbeats, fluttering in your chest, shortness of breath, and sudden dizziness (like you mightpass out). Call your doctor at once if you have: ?? a seizure; ?? yellowing of your eyes; ?? ringing in your ears, trouble hearing; ?? unusual mood changes; ?? severe muscle weakness, loss of coordination, underactive reflexes; ?? low blood cell counts --fever, chills, tiredness, sore throat, mouth sores, easy bruising, unusual bleeding, pale skin, cold hands and feet, feeling light- headed or short of breath; ?? low blood sugar --headache, hunger, sweating, irritability, dizziness, fast heart rate, and feeling anxious or shaky; or ?? a serious drug reaction that can affect many parts of your body --skin rash, fever, swollen glands, muscle aches, severe weakness, unusual bruising, or yellowing of your skin or eyes. Taking hydroxychloroquine long-term or at high doses may cause irreversible damage to the retina ofyour eye. Stop taking hydroxychloroquine and tell your doctor if you have: ?? blurred vision, trouble focusing, trouble reading; ?? distorted vision, blind spots; ?? changes in your color vision; ?? hazy or cloudy vision; ?? seeing light flashes or streaks, seeing halos around lights; or ?? increased sensitivity to light. Common side effects may include: ?? headache, dizziness; ?? nausea, vomiting, stomach pain; ?? loss of appetite, weight loss; ?? feeling nervous or irritable; ?? skin rash or itching; or ?? hair loss. This is not a complete list of side effects and others may occur. Call your doctor for medical advice about side effects. You may report side effects to FDA at 8-719-BJY-8975. What other drugs will affect hydroxychloroquine? Hydroxychloroquine can cause a serious heart problem. Your risk may be higher if you also use certain other medicines for infections, asthma, heart problems, high blood pressure, depression, mental illness, cancer, malaria, or HIV. Tell your doctor about all your other medicines, especially: ?? cimetidine; ?? cyclosporine; ?? methotrexate; ?? praziquantel; ?? tamoxifen; ?? heart rhythm medicine; ?? insulin or oral diabetes medicine; or ?? seizure medication. This list is not complete. Other drugs may affect hydroxychloroquine, including prescription and xvur-fzt-skyvzqd medicines, vitamins, and herbal products. Not all possible drug interactions are listed here. Where can I get more information? Your pharmacist can provide more information about hydroxychloroquine. Remember, keep this and all other medicines out of the reach of children, never share your medicines with others, and use this medication only for the indication prescribed. Every effort has been made to ensure that the information provided by [employer]. ('[employer]') is accurate, up-to-date, and complete, but no guarantee is made to that effect. Drug information contained herein may be time sensitive. [employer] information has been compiled for use by healthcare practitioners and consumers in the [place] and therefore [employer] does not warrant that uses outside of the [place] are appropriate, unless specifically indicated otherwise. [employer] drug information does not endorse drugs, diagnose patients or recommend therapy. [employer] drug information isan informational resource designed to assist licensed healthcare practitioners in caring for their p atients and/or to serve consumers viewing this service as a supplement to, and not a substitute for, the expertise, skill, knowledge and judgment of healthcare practitioners. The absence of a warningfor a given drug or drug combination in no way should be construed to indicate that the drug or drug combination is safe, effective or appropriate for any given patient. [employer] does not assume any responsibility for any aspect of healthcare administered with the aid of information [employer] provides. The information contained herein is not intended to cover all possible uses, directions, precautions, warnings, drug interactions, allergic reactions, or adverse effects. If you have questions about the drugs you are taking, check with your doctor, nurse or pharmacist. Copyright 8193-2627 [employer]. Version: 10.02. Revision date: 08/24/2019. Care instructions adapted under license by [facility]. If you have questions about a medical condition or this instruction, always ask your healthcare professional. [employer] disclaims any warranty or liability for your use of this information. documented in this encounter Progress Notes * Lance Wilson - 12/04/2019 0945 EDT Division of Rheumatology and Clinical Immunology Chief Complaint Patient presents with ??? Follow-up Lupus anti coag positive; feels a lot better; pain is weather dependent. HPI: Rajan Marquez is a 68 yo male with COPD, 40+ py smoking history, HTN and lupus anti-coagulase positive serology who presents for a medication follow-up visit for hydroxychloroquine. Patient has been taking hydroxychloroquine for 6 months, denies experiencing joint pain, stiffness or swelling except after being very active or with changes in the weather. Denies adverse medication events, including rash, nausea or skin darkening. 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 Patient states that a little over 2 years ago he began experiencing pain, swelling and stiffness in his ankles, legs and fingers, was evaluated by Dr Fernandez, and that his symptomsimproved dramatically after initiating therapy with prednisone. He reports that he weaned off prednisone and started taking hydroxychloroquine approximately 6 months ago. In addition to taking lisinopril for HTN and Wellbutrin for mood, patient reports taking 2 droppersof CBD oil PO every morning for the last 6 months, which he feels greatly improves his arthralgias. Patient states that he has retired from [employer] in [place], [place], felt that he was going crazy staying at home all the time, and has since started working at [employer] in [place], [place] for 4 hours a day. Current Outpatient Medications Medication ??? albuterol 90 mcg/actuation inhaler ??? aspirin 81 mg EC tablet ??? buPROPion (WELLBUTRIN XL) 150 mg XL tablet ??? calcium carbonate-vitamin D3 600 mg(1,500mg) -800 unit tablet ??? fluticasone furoate-vilanteroL 100-25 mcg/dose blister with device ??? hydrOXYchloroQUINE (PLAQUENIL) 200 mg tablet ??? lisinopriL (PRINIVIL) 20 mg tablet ??? omeprazole (PRILOSEC) 20 mg capsule No current facility-administered medications for this visit. Allergies include: Patient has no known allergies. Past Medical History: Diagnosis Date ??? Conductive hearing loss, bilateral No past surgical history on file. Social History Socioeconomic History ??? Marital status: Spouse name: Not on file ??? Number of children: Not on file ??? Years of education: Not on file ??? Highest education level: Not on file Occupational History ??? Not on file Social Needs ??? Financial resource strain: Not on file ??? Food insecurity Worry: Not on file Inability: Not on file ??? Transportation needs Medical: Not on file Non-medical: Not on file Tobacco Use ??? Smoking status: Current Every Day Smoker Packs/day: 1.00 Types: Cigarettes ??? Smokeless tobacco: Never Used Substance and Sexual Activity ??? Alcohol use: Never Frequency: Never Binge frequency: Never ??? Drug use: Not on file ??? Sexual activity: Not on file Lifestyle ??? Physical activity Days per week: Not on file Minutes per session: Not on file ??? Stress: Not on file Relationships ??? Social connections Talks on phone: Not on file Gets together: Not on file Attends muslim service: Not on file Active member of club or organization: Not on file Attends meetings of clubs or organizations: Not on file Relationship status: Not on file ??? Intimate partner violence Fear of current or ex partner: Not on file Emotionally abused: Not on file Physically abused: Not on file Forced sexual activity: Not on file Other Topics Concern ??? Not on file Social History Narrative ??? Not on file ROS Negative except as in hpi. Complete 12 point ros obtained PHYSICAL EXAMINATION: Blood pressure (!) 144/84, pulse 60, temperature 36 ??C (96.8 ??F), height 173.4 cm (68.25), weight 94.8 kg (209 lb). Patient is pleasant and well appearing elderly male Eyes: no iritis, no inflammation. ENT: Mucous membranes moist. No nasal discharge. Hearing aids in place. NECK: normal extension and lateral rotation without pain. No grossly enlarged thyroid CHEST: Bilateral wheezes on inspiration and expiration in all lung dave. CARDIOVASCULAR: Regular rate and rhythm. There is no peripheral edema. Warm finger tips and toes. No digital ulcers. SKIN: No psoriasis. No nail fold pitting. No nodules. No rashes. ABDOMEN: Non distended. JOINTS: Hands: No degenerative changes. No synovitis and normal ROM in the MCPs, Wrists Elbows: normal ROM Shoulders: normal ROM Hips: normal ROM Knees: Normal ROM Ankles: normal ROM, no effusion NEUROLOGICAL Gait: patient takes small steps, appears stiff when walking No assistive devices Fluent speech which is easy to understand PSYCH: pleasant and appropriate. Well groomed. Mildly increased latency in answering questions. Patient appears to have difficulty recollecting specifics of past events, including the timing and symptoms of his disease as compared to medical record. 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 I have personally performed my own physical exam and medical decision making. I have verified and agree with (or, as indicated, have edited) the medical student's documentation. and Supervising Physician Mena gN MD 12/07/2019 13:23 My edits are in bold above. Lance Wilson 12/04/2019 11:05 documented in this encounter Plan of Treatment Not on file documented as of this encounter Visit Diagnoses Diagnosis RS3PE syndrome- Primary Polymyalgia rheumatica Encounter for long-term (current) use of medications Encounter for long-term (current) use of other medications documented in this encounter Discontinued Medications Medication Sig Discontinue Reason Start Date End Da te predniSONE (DELTASONE) 2.5 mg tablet 1 tab(s) orally once a day Therapy completed 12/04/2019 documented as of this encounter Care Teams Post Acute Care Registered Nurse Relationship Specialty Start Date End Date Tami Olivia [address] [place] [id number] PCP - General 12/04/19 documented as of this encounter
--- OUTSIDE RECORDS SUMMARY | 2023-12-11 17:37 | XMS_ITS | Encounter Summary ---
Author Organization [facility] Address [address] [place] [address] Care Team Providers Care System Analyst Name Role Phone Tami Olivia Primary Care Provider [phone] Encounter Details Date Type Department Care Team (Late st Contact Info) Description 12/11/2021 Lab Requisition [facility] Pathology & Laboratory Medicine - [facility] [address] [place] [address] Outr Resulting Lab, Provider Social History Tobacco [...] Procedure Name Priority Date/Time Associated Diagnosis Comments GLUCOSE, FLUID Routine 12/11/2021 11:00 EDT documented in this encounter Results * GLUCOSE, FLUID (12/11/2021 11:00 EDT) Glucose, Fluid 38 See Note mg/dL 12/11/2021 18:45 EDT [facility] Comment: Reference range unavailable. Clinical correlation required. This Fluid Glucose assay was developed and its performance characteristics determined by [facility]. ??It has not been cleared or approved by the US Food and Drug Administration. Fluid PLEURAL FLUID / Unknown 12/11/2021 11:00 EDT 12/11/2021 17:43 EDT Provider Outr Resulting Lab GEN LAB UNIT COLLECT ORDERABLES [facility] [address] [place] [address] documented in this encounter Visit Diagnoses Not on filedocumented in this encounter Care Teams System Analyst Relationship Specialty Start Date End Date Tami Olivia [address] [place] [address] PCP - General 12/04/19 documented as of this encounter
--- OUTSIDE RECORDS SUMMARY | 2023-12-11 17:37 | XMS_ITS | Encounter Summary ---
Author Organization [facility] Address [facility] [place] [address] Care Team Providers Care Campground Manager Name Role Phone Tami Olivia Primary Care Provider [phone] Reason for Referral * Diagnostic Test (Routine) - Closed Specialty Diagnoses / Procedures Referred By Contac t Referred To Contact Radiology Diagnoses Mass of upper lobe of left lung Pre-operative cardiovascular examination, high risk surgery Procedures NM Exercise Stress CT Component Gilmer Gutiérrez MD [facility] [place] [address] [place] [address] Referral ID Status Reason Start Date Expiration Date V isits Requested Visits Authorized [id number] Closed Specialty Service Requested 02/09/2021 03/26/2021 1 1 Reason for Visit * Diagnostic Test (Routine) - Closed Specialty Diagnoses / Procedures Referred By Contac t Referred To Contact Radiology Diagnoses Mass of upper lobe of left lung Pre-operative cardiovascular examination, high risk surgery Procedures NM Exercise Stress CT Component Gilmer Gutiérrez MD [facility] [place] [address] [place] [address] Referral ID Status Reason Start Date Expiration Date V isits Requested Visits Authorized [id number] Closed Specialty Service Requested 02/09/2021 03/26/2021 1 1 Encounter Details Date Type Department Care Team (Latest Contact Info) Description 02/13/2021 10:03 AM EST - 02/13/2021 12:55 PM EST Hospital Encounter [place] [address] Gilmer Gutiérrez MD [facility] [place] [address] Mass of upper lobe of left lung; [...] Date/Time Associated Diagnosis Comments NM EXERCISE STRESS CT COMPONENT Routine 02/13/2021 12:09 PM EST Mass of upper lobe of left lung Pre-operative cardiovascular examination, high risk surgery documented in this encounter Results * NM Exercise Stress CT Component (02/13/2021 [...] have questions please contact the health careers counsellor that requested your imaging first. ? Procedure Note Marcus Edwards MD - 02/13/2021 [...] who have questions please contactthe health careers counsellor that requested your imaging first. Gilmer Gutiérrez MD IMG NM ORDERABLE S documented in this encounter Visit Diagnoses Diagnosis Mass of upper lobe of left lung Pre-operative cardiovascular examination, high risk surgery Pre-operative cardiovascular examination documented in this encounter Care Teams Campground Manager Relationship Specialty Start Date End Date Tami Olivia [address] [place] [address] PCP - General Family Medicine 12/30/20 documented as of this encounter
--- OUTSIDE RECORDS SUMMARY | 2023-12-11 17:37 | XMS_ITS | Encounter Summary ---
Author Organization [facility] Address [address] [place] [address] Care Team Providers Care Shake Sawyer Name Role Phone Tami Olivia Primary Care Provider [phone] Reason for Visit * Reason Onset Date Comments Other 08/12/2020 Encounter Details Date Type Department Care Team (Late st Contact Info) Description 08/12/2020 Telephone [facility] [place] [address] [place] [address] Mena Ng MD [address] [facility] [address] [place] [address] Other Social History Tobacco Use [...] ORALLY ONCE A DAY 180 Tab 3 08/12/2020 12/07/2020 documented in this encounter Miscellaneous Notes * Telephone Encounter - Renu Son, RN - 08/12/2020 1034 EDT Last visit note reviewed and follow up scheduled for 12/07/20. Refill sent as noted to [facility]. [facility] no longer listed on his pharmacy list. * Telephone Encounter - Leonor Rodriguez - 08/12/2020 0946 EDT Patient wants [facility] removed and HCQ should go through [facility] only- When I click on HCQ it shows [facility] but on his demographics [facility] is listed documented in this encounter Plan of Treatment Not on file documented as of this encounter Visit Diagnoses Not on filedocumented in this encounter Discontinued Medications Medication Sig Discontinue Reason Start Date End Da te hydrOXYchloroQUINE (PLAQUENIL) 200 mg tablet TAKE 2 TABLETS ORALLY ONCE A DAY Reorder 11/06/2019 08/12/2020 documented as of this encounter Care Teams Shake Sawyer Relationship Specialty Start Date End Date Tami Olivia [address] [place] [address] PCP - General 12/04/19 documented as of this encounter
--- OUTSIDE RECORDS SUMMARY | 2023-12-11 17:38 | XMS_ITS | Encounter Summary ---
Author Organization [facility] Address [address] [place] [address] Care Team Providers Care Violin Tutor Name Role Phone Tiffany Gutierres SENIOR MARKET INTELLIGENCE CONSULTANT Primary Care Provider [phone] Encounter Details Date Type Department Care Team (Late st Contact Info) Description 04/28/2018 Results Only [facility] [phone] Aby Winston MD [address] [place] [address] [place] [address] Social History Tobacco Use Types Packs/Day Years Used Date Smoking Tobacco: Never Assessed Sex and Gender Information Value Date Recorded Sex Assigned at Not on file Gender Identity Male 11/05/2019 8:00 EDT Sexual Orientation Not on file documented as of this encounter Plan of Treatment Not on file documented as of this encounter Procedures Procedure Name Priority Date/Time Associated Diagnosis Comments SURGICAL PATHOLOGY Routine 04/28/2018 16 :05 EST documented in this encounter Results * SURGICAL PATHOLOGY (04/28/2018 16:05 EST) Pathology Report: SURGICAL PATHOLOGY REPORT Reports generated via electronic interface contain original data; however they are lacking the format of the original report. Caution should be taken when reading/interpret ing unformatted reports. Name: ? RAJAN MARQUEZ ? Accession #: ? [id number] ? : ? 1950 (Age: 67) ??M ? Collect Date: ? 04/28/2018 ? Location: ? [facility] ? Receive Date: ? 04/28/2018 ? Provider: ABY WINSTON MD Copy to: [facility] ? Final Pathologic Diagnosis: A. COLON, ASCENDING, POLYP, BIOPSY: - Fragments of tubular adenomas. B. RECTUM, POLYP, #1, BIOPSY: - ??Fragments of tubular adenoma(s) with histologic features of prolapse. C. RECTUM, POLYP, #2, BIOPSY: - ??Fragments of tubular adenoma. Document reviewed and electronically signed by: TAYLA ADAME MD Report ??Date: 04/30/2018 09:07 By the signature above, the attending physician certifies that he/she has personally conducted a gross and/or microscopic examination of the described specimens and rendered or confirmed the above diagnosis. Specimen(s) Received: A. ??Ascending colon polyps x2 B. ??Rectal polyp #1 C. ??Rectal polyp #2 Clinical History: Colorectal screening Gross Description: A. ?Received in formalin labelled with proper patient identification (initials D, M) and ascending colon polyps x2 are two serrato nodular tissues averaging 0.2 x 0.2 x 0.2 cm. Entirely submitted in A1. B. ?Received in formalin labelled with proper patient identification (initials D, M) and rectal polyp #1 is a serrato-red lobulated polyp, 0.8 x 0.7 x 0.6 cm. The polyp is bisected and entirely submitted in B1. Received in the same container is a serrato irregular tissue, 0.3 x 0.2 x 0.2 cm. Entirely submitted in B2. C. ?Received in formalin labelled with proper patient identification (initials D, M) and rectal polyp #2 is a serrato irregular tissue, 0.3 x 0.2 x 0.2 cm. Entirely submitted in C1. STEVE Sellers (ASCP) 04/28/2018 4:41 PM End of Report [facility] 04/28/2018 16:0 5 EST 04/28/2018 16:05 EST Aby Winston MD PATHOLOGY ORDERClemencia GALINDO [facility] [address] [place] [address] documented in this encounter Visit Diagnoses Not on filedocumented in this encounter Care Teams Violin Tutor Relationship Specialty Start Date End Date Tiffany Gutierres, SENIOR MARKET INTELLIGENCE CONSULTANT [address] [place] [phone] PCP - General 02/07/12 11/04/19 documented as of this encounter
--- OUTSIDE RECORDS SUMMARY | 2023-12-11 17:38 | XMS_ITS | Encounter Summary ---
Author Organization [facility] Address [address] [place] [address] Care Team Providers Care Wrestling Coach Name Role Phone Unknown, Provider Primary Care Provider [phone] Encounter Details Date Type Department Care Team (Late st Contact Info) Description 02/05/2012 Results Only [facility] ([facility] [address], [place] [id number] Марина Mann MD [address] [place] [id number] Social History Tobacco Use Types Packs/Day Years [...] Date/Time Associated Diagnosis Comments SURGICAL PATHOLOGY Routine 02/05/2012 0:00 EST documented in this encounter Results * SURGICAL PATHOLOGY (02/05/2012 0:00 EST) Pathology Report: SURGICAL PATHOLOGY REPORT Reports generated via electronic interface contain original data; however they are lacking the format of the original report. Caution should be taken when reading/interpreti ng unformatted reports. Name: ? RAJAN MARQUEZ ? Accession #: ? [id number] ? : ? 1950 (Age: 61) ??M ? Collect Date: ? 02/05/2012 ? Location: ? [facility] ? Receive Date: ? 02/06/2012 ? Provider: МАРИНА MANN MD Copy to: IRIS ROY BLOCK PRESS OPERATOR ? Final Pathologic Diagnosis: ? Skin of ear, left external, shave biopsy: - Fibroepithelial polyp (soft fibroma). Microscopic Description: ? Sections are of a pedunculated portion of skin. ??The epidermis is relatively unremarkable. ??Within the dermis, there is loose fibrous tissue with stellate fibroblasts. ??There are lobules of mature adipose tissue. ??(Dr. Iglesias)/[facility] Document reviewed and electronically signed by: RICARDO IGLESIAS MD Report ??Date: 02/08/2012 16:35 By the signature above, the attending physician certifies that he/she has personally conducted a gross and/or microscopic examination of the described specimens and rendered or confirmed the above diagnosis. Specimen(s) Received: ? Excision skin tag L ext ear Clinical History: ? Not listed Gross Description: ? Received in formalin labelled Jimmy, Rajan and skin tag L ext ear is a 1.2 x 1.0 x 0.9 cm ovoid serrato-white, focally serrato-emerson, smooth, focally cobblestoned and hairbearing nodule. ??The specimen is serially sectioned and entirely submitted as (A1) and (A2). (Ronit Juarez)/[facility] End of Report RAYNA KUMAR 02/05/2012 02/06/2012 19: 45 EST Марина Mann MD PATHOLOGY ORDERABLES RAYNA KUMAR [address] [place] [address] documented in this encounter Visit Diagnoses Not on filedocumented in this encounter Care Teams Wrestling Coach Relationship Specialty Start Date End Date Unknown, Provider, PCP - General 02/06/12 02/06/12 documented as of this encounter
--- OUTSIDE RECORDS SUMMARY | 2023-12-11 17:38 | XMS_ITS | Encounter Summary ---
Author Organization [facility] Address [address] [place] [address] Care Team Providers Care Private Chef Name Role Phone Unavailable Primary Care Provider Unavailabl e Encounter Details Date Type Department Care Team (Late st Contact Info) Description 11/05/2019 [facility] Rheumatology [address] [place] [address] Jeannie Hurtado RN Social History Tobacco Use Types Packs/Day [...] Diagnoses Not on filedocumented in this encounter Historical Medications * This list may reflect changes made after this encounter. Medication Sig Dispensed Refills Start Date End Date omeprazole (PRILOSEC) 20 mg capsule 1 cap(s) orally once a day lisinopriL (PRINIVIL) 20 mg tablet 1 tab(s) orally once a day fluticasone furoate-vilanteroL 100-25 mcg/dose blister with device 1 puff(s) inhaled once a day buPROPion (WELLBUTRIN XL) 150 mg XL tablet 1 tab(s) orally every 24 hours aspirin 81 mg EC tablet 1 tab(s) orally once a day albuterol 90 mcg/actuation inhaler 2 puff(s) inhaled 4 times a day predniSONE (DELTASONE) 2.5 mg tablet 1 tab(s) orally once a day 12/04/2019 hydrOXYchloroQUINE (PLAQUENIL) 200 mg tablet Take 400 mg by mouth daily. 11/06/2019 calcium carbonate-vitamin D3 600 mg(1,500mg) -800 unit tablet 1 tab(s) orally once daily 12/07/2020 added in this encounter
--- OUTSIDE RECORDS SUMMARY | 2023-12-11 17:38 | XMS_ITS | Encounter Summary ---
Author Organization [facility] Address [address] [place] [address] Care Team Providers Care Qa Tester Name Role Phone Tiffany Gutierres CASINO FLOOR RUNNER Primary Care Provider [phone] Encounter Details Date Type Department Care Team (Latest Contact Info) Description 04/28/2018 13:26 EST - 04/28/2018 23:59 EST Hospital Encounter [address] [address] Unknown, Provider, Discharge Disposition: Home or Self Care Social History Tobacco Use Types Packs/Day Years Used Date Smoking Tobacco: Never Assessed Sex and Gender Information Value Date Recorded Sex Assigned at Not on file Gender Identity Male 11/05/2019 8:00 EDT Sexual Orientation Not on file documented as of this encounter Discharge Disposition Disposition Code Departure Means Destination Home or Self Nursing Home documented in this encounter Plan of Treatment Not on file documented as of this encounter Visit Diagnoses Not on filedocumented in this encounter Care Teams Qa Tester Relationship Specialty Start Date End Date Tiffany Gutierres NP [address] [place] [phone] PCP - General 02/07/12 11/04/19 documented as of this encounter
[2023-12-11 17:49] LABS: Abs Immature Grans 0.04 10^3/uL (0.0-0.06); Absolute Basophil Count 0.06 10^3/uL (0.0-0.2); Absolute Eosinophil Count 0.01 10^3/uL (0.0-0.7); Absolute Lymphocyte Count 0.97 10^3/uL (1.2-3.4); Absolute Monocyte Count 0.71 10^3/uL (0.1-0.8); Absolute Neutrophil Count 7.82 10^3/uL (1.2-6.7); Basophils % 0.6 %; Eosinophils % 0.1 %; HCT 43.1 % (40.0-50.0); HGB 14.1 g/dL (13.5-17.5); Immature Grans % 0.4 %; Lymphocytes % 10.1 %; MCH 31.5 pg (27.0-33.0); MCHC 32.7 % (32.0-36.0); MCV 96 fL (80-95); MPV 9.5 fL (8.0-11.0); Monocytes % 7.4 %; Neutrophils % 81.4 %; Platelet Count 250 10^3/uL (130-400); RBC 4.47 10^6/uL (4.36-5.78); RDW 14.2 % (11.8-14.1); RDW-SD 49.9 fL; WBC 9.61 10^3/uL (4.4-10.8)
[2023-12-11] MEDS: Furosemide 40 MG/4 ML VIAL IVP ×2 (17:53→19:13)
[2023-12-11 18:09] LABS: ALT 21 U/L (16-63); AST 30 U/L (15-37); Albumin 3.8 g/dL (3.4-5.0); Alkaline Phosphatase 72 U/L (46-116); Anion Gap 11.3 mmol/L (3-11); BUN 9 mg/dL (7-18); Bilirubin, Total 1.56 mg/dL (0.2-1.0); CO2 23.7 mmol/L (21.0-32.0); CREATININE 1.4 mg/dL (0.70-1.30); Calcium 9.5 mg/dL (8.5-10.1); Chloride 101 mmol/L (98-107); Estimated GFR 53.07 (mL/min/1.73m2); Glucose 98 mg/dL (74-106); Magnesium 1.8 mg/dL (1.8-2.4); Potassium 3.9 mmol/L (3.5-5.1); Sodium 136 mmol/L (136-145); TSH (W/Ref FT4) 2.07 uIU/mL (0.36-3.74); Total Protein 8.1 g/dL (6.4-8.2); Troponin I 58 ng/L (<or=76)
[2023-12-11] MEDS: dilTIAZem 25 MG/5 ML VIAL 20 MG IVP (18:23)
[2023-12-11 18:36] LABS: NT-proBNP 3958 pg/mL (<300)
[2023-12-11] MEDS: Albuterol 2.5 MG/3 ML INH SOLN VIAL UPD (18:41)
[2023-12-11 18:43] LABS: Troponin I 63 ng/L (<or=76)
[2023-12-11] MEDS: dilTIAZem 125 MG in Normal Saline 100 ML IV (19:12)
[2023-12-11 19:15] LABS: BE (Venous) -1 mmol/L (-2-3); HCO3 (Venous) 25 mmol/L (23-28); O2 Sat (Venous) 50 %; TCO2 (Venous) 23 mmol/L (24-29); pCO2 (Venous) 48 mmHg (41-51); pH (Venous) 7.33 (7.31-7.41); pO2 (Venous) 31 mmHg
[2023-12-11] MEDS: Levalbuterol 1.25 MG/3 ML UPD VIAL (20:10)
[2023-12-11] MEDS: Metoprolol 50 MG TAB PO (21:24)
[2023-12-11] MEDS: Heparin in 0.45% NaCl 25,000 UNIT/250 ML BAG 10 UNIT IV ×2 (21:38→23:27)
--- NOTE | 2023-12-11 21:40 | ED.GENADUL_ITS ---
Discharge Plan Disposition Patient Disposition: Home Condition: Stable Discharge Details Clinical Impression: Atrial fibrillation, CHF (congestive heart failure) Primary Care Provider: Tami Olivia ED Provider: Elaine Cotton Home Meds and New Rx's Prescriptions: No Action albuterol sulfate 0.63 mg/3 mL solution for nebulization 0.63 mg inhalation QID PRN (Reason: shortness of breath or wheezing) Qty: 90 12RF amiodarone 200 mg tablet 200 mg PO DAILY Spiriva Respimat 2.5 mcg/actuation mist 2 inh inhalation QAM Qty: 12 3RF calcium carbonate-vitamin D3 600 mg-20 mcg (800 unit) tablet 1 tab PO DAILY cholecalciferol (vitamin D3) 25 mcg (1,000 unit) capsule 25 mcg PO DAILY acetaminophen [Tylenol Arthritis Pain] 650 mg tablet extended release 1,300 mg PO DAILY cyanocobalamin (vitamin B-12) 1,000 mcg capsule 1,000 mcg PO DAILY metoprolol succinate 25 mg tablet extended release 24 hr 25 mg PO DAILY furosemide 40 mg tablet 40 mg PO DAILY albuterol sulfate [ProAir HFA] 90 mcg/actuation HFA aerosol inhaler 2 puff inhalation Q6H PRN bupropion HCl 150 mg tablet sustained-release 12 hr 150 mg PO QAM tamsulosin 0.4 mg capsule 0.4 mg PO DAILY hydroxychloroquine 200 mg tablet 200 mg PO DAILY spironolactone 25 mg tablet 25 mg PO DAILY magnesium oxide 400 mg (241.3 mg magnesium) Tablet 400 mg PO HS Qty: 10 0RF Xarelto 20 mg tablet 1 tab PO DAILY HPI General Date/Time Provider Initiated Documentation: 12/11/23 17:10 . HPI Narrative: This 72-year-old gentleman with history of CHF, hydropneumothorax, atrial fibrillation, COPD presents with report of shortness of breath that is worsening over the past couple weeks. He self discontinued his Xarelto, amiodarone, and metoprolol because he was feeling better . He saw his bend sorter today who thought he was in heart failure and sent him here for assessment. Patient states he is having a little trouble breathing per patient. He states he is unaware when his rhythm is poorly controlled. He denies any pleuritic chest pain or any chest pain at all. He denies any weight gain or peripheral edema. Denies any recent illnesses. He denies any alcohol use. Related Data Home Medications ?Medication ?Instructions ?Recorded ?Confirmed albuterol sulfate 90 mcg/actuation 2 puff inhalation Q6H PRN 05/24/21 12/11/23 aerosol inhaler (ProAir HFA) bupropion HCl 150 mg tablet,12 hr 150 mg PO QAM 05/24/21 12/11/23 sustained-release tamsulosin 0.4 mg capsule 0.4 mg PO DAILY 05/24/21 12/11/23 rivaroxaban 20 mg tablet (Xarelto) 1 tab PO DAILY 12/11/21 12/11/23 hydroxychloroquine 200 mg tablet 200 mg PO DAILY 02/06/22 12/11/23 acetaminophen 650 mg 1,300 mg PO DAILY 03/29/22 12/11/23 tablet,extended release (Tylenol Arthritis Pain) calcium carbonate 600 mg-vitamin 1 tab PO DAILY 03/29/22 12/11/23 D3 20 mcg (800 unit) tablet cholecalciferol (vitamin D3) 25 25 mcg PO DAILY 03/29/22 12/11/23 mcg (1,000 unit) capsule albuterol sulfate 0.63 mg/3 mL 0.63 mg (3 mL) inhalation QID PRN 06/26/2205/04 solution for nebulization shortness of breath or wheezing #90 mL magnesium oxide 400 mg (241.3 mg 400 mg PO HS #10 tabs 08/03/22 12/11/23 magnesium) tablet spironolactone 25 mg tablet 25 mg PO DAILY 08/20/22 12/11/23 cyanocobalamin (vitamin B-12) 1,000 mcg PO DAILY 10/10/22 12/11/23 1,000 mcg capsule amiodarone 200 mg tablet 200 mg PO DAILY 11/15/22 12/11/23 furosemide 40 mg tablet 40 mg PO DAILY 12/07/22 12/11/23 metoprolol succinate 25 mg 25 mg PO DAILY 12/25/22 12/11/23 tablet,extended release 24 hr tiotropium bromide 2.5 2 inh inhalation QAM #12 grams 02/27/23 12/11/23 mcg/actuation mist for inhalation (Spiriva Respimat) Previous Rx's ?Medication ?Instructions ?Recorded albuterol sulfate 0.63 mg/3 mL 0.63 mg (3 mL) inhalation QID PRN 06/26/22 solution for nebulization shortness of breath or wheezing #90 mL magnesium oxide 400 mg (241.3 mg 400 mg PO HS #10 tabs 08/03/22 magnesium) tablet tiotropium bromide 2.5 2 inh inhalation QAM #12 grams 02/27/23 mcg/actuation mist for inhalation (Spiriva Respimat) Allergies Allergy/AdvReac Type Severity Reaction Status Date / Time seasonal Allergy Other (See Uncoded 12/11/23 18:15 Comment) General Stated Complaint: Arrhythmia NICCI: 2 Exam Narrative Exam Narrative: Alert and oriented 72-year-old male in acute distress, Rales throughout, respiratory distress, moderate, irregularly irregular rhythm, no abdominal tenderness, no peripheral edema, no calf swelling or tenderness, distal pulses intact alert and oriented x 4 Course Vital Signs Vital signs: Vital Signs Pulse Oximetry 90 L 12/11/23 17:21 Temperature 36.8 C 12/11/23 17:23 Pulse 155 H 12/11/23 21:01 Pulse 155 H 12/11/23 21:10 Respiratory Rate 29 H 12/11/23 21:10 Respiratory Effort Short of Breath 12/11/23 17:25 Blood Pressure 97/68 L 12/11/23 21:01 Blood Pressure Mean 77 12/11/23 21:01 Pulse Oximetry 96 12/11/23 21:10 Oxygen Delivery Method Bi-pap 12/11/23 20:10 Oxygen Flow Rate 5 12/11/23 18:42 Fraction of Inspired Oxygen (FIO2) 30 12/11/23 19:00 Comment placed on nc 2 l o2 94% 12/11/23 17:23 Lab/Test Results Lab/Test Results: Laboratory Tests Range/Units 12/11/23 12/11/23 12/11/23 17:23 18:19 19:07 WBC (4.4-10.8) 10^3/uL 9.61 RBC (4.36-5.78) 10^6/uL 4.47 Hgb (13.5-17.5) g/dL 14.1 Hct (40.0-50.0) % 43.1 MCV (80-95) fL 96 H MCH (27.0-33.0) pg 31.5 MCHC (32.0-36.0) % 32.7 RDW (11.8-14.1) % 14.2 H Plt Count (130-400) 10^3/uL 250 MPV (8.0-11.0) fL 9.5 Immature Gran % % 0.4 Neutrophils % % 81.4 Lymphocytes % % 10.1 Monocytes % % 7.4 Eosinophils % % 0.1 Basophils % % 0.6 Nucleated RBC % (0.0-0.3) % 0.0 Absolute Neutrophils (1.2-6.7) 10^3/uL 7.82 H Absolute Lymphocytes (1.2-3.4) 10^3/uL 0.97 L Absolute Monocytes (0.1-0.8) 10^3/uL 0.71 Absolute Eosinophils (0.0-0.7) 10^3/uL 0.01 Absolute Basophils (0.0-0.2) 10^3/uL 0.06 VBG pH (7.31-7.41) 7.33 VBG pCO2 (41-51) mmHg 48 VBG pO2 mmHg 31 VBG HCO3 (23-28) mmol/L 25 VBG Total CO2 (24-29) mmol/L 23 L VBG O2 Saturation % 50 VBG Base Excess (-2-3) mmol/L -1 Sodium (136-145) mmol/L 136 Potassium (3.5-5.1) mmol/L 3.9 Chloride (98-107) mmol/L 101 Carbon Dioxide (21.0-32.0) mmol/L 23.7 Anion Gap (3-11) mmol/L 11.3 H BUN (7-18) mg/dL 9 Creatinine (0.70-1.30) mg/dL 1.4 H Est GFR (CKD-EPI 2020) (mL/min/1.73m2) 53.07 Glucose (74-106) mg/dL 98 Calcium (8.5-10.1) mg/dL 9.5 Magnesium (1.8-2.4) mg/dL 1.8 Total Bilirubin (0.2-1.0) mg/dL 1.56 H AST (15-37) U/L 30 ALT (16-63) U/L 21 Alkaline Phosphatase (46-116) U/L 72 Troponin I (<or=76) ng/L 58 63 NT-Pro-B Natriuret Pep (<300) pg/mL 3958 H Total Protein (6.4-8.2) g/dL 8.1 Albumin (3.4-5.0) g/dL 3.8 TSH (0.36-3.74) uIU/mL 2.07 Medical Decision Making 72-year-old male presenting in acute respiratory distress with atrial fibrillation and RVR. Self discontinued all of his medications. X-ray concerning for volume overload status. No obvious infiltrates and no card iomegaly noted. Low clinical suspicion for pulmonary embolism. Electrolytes and troponin within normal limits. Patient secondary to likely CHF was given three 5 mg dose doses of metoprolol without any effect. He was subsequently given Lasix 40 mg as blood pressure was on the low end of normal and then given 20 mg of diltiazem. Patient had 5 minutes of controlled rhythm and returned back into the 150s for rate. He feels marked improvement after BiPAP was placed secondary to acute respiratory distress likely in the setting of CHF although I did consider COPD as patient does have this diagnosis, he did not have any change in his symptoms with 2 doses of albuterol. He has had approximately 1500 cc of output and his heart rate is actually improving. He initially was started on diltiazem drip and was at 15 mg without significant change in rhythm rate. Patient is on 12/13 for up, he has had 80 mg of IV Lasix and received approximately an hour and 1/2 infusion of diltiazem. I have paged cardiology and they called back approximately 2 hours later I spoke with Dr. [address] who recommends discontinuing the diltiazem and starting p.o. metoprolol and they will accept patient in transfer tomorrow, Dr. Gray is to be the accepting. Patient wishes to be full CODE STATUS. At time of reassessment he is resting comfortably marked improvement in his symptoms and is agreeable to admission to this facility. Quality:SDOH Health Related Social Needs: No Data to Display Critical Care Time Critical Care Time Attestation: 45 minutes of critical care time secondary to A-fib with RVR and CHF requiring BiPAP, rate control medications, metoprolol, diltiazem, imaging interpretation and review, cardiology consultation, telemetry monitoring, diagnostic lab interpretation and review, admission to the hospital likely transfer to tertiary care hospital [facility] All Active Problems (Updated 12/11/23 @ 21:51 by Tod Engle MD) Depression (Chronic) Acute respiratory failure with hypoxemia (Acute) HFrEF (heart failure with reduced ejection fraction) (Acute) Atrial fibrillation with RVR (Acute) CHF (congestive heart failure) (Chronic) Atrial fibrillation (Chronic) On amiodarone therapy (Acute) Imbalance (Acute) Peripheral neuropathy (Acute) Hydropneumothorax (Acute) Trapped lung (Acute) Pleural effusion (Acute) Weakness (Acute) Hypoxemia (Acute) Alcohol use (Acute) Weakness (Acute) Caregiver stress (Acute) History of lung cancer (Acute) Supplemental oxygen dependent (Acute) Frequent falls (Acute) Advanced care planning/counseling discussion (Acute) Tachycardia (Acute) Dyspnea and respiratory abnormalities (Acute) S/P thoracotomy (Acute) Atrial flutter (Chronic) Loculated pleural effusion (Acute) ADHD (Chronic) Panic disorder (Chronic) Alcohol abuse (Chronic) Depression (Chronic) Hypertension (Chronic) Smoker (Acute) Encounter for screening colonoscopy (Acute) S/P colonoscopy (Acute ~04/28/18) Colorectal polyp detected on colonoscopy (Acute ~04/28/18) Tubular adenoma Retinal hemorrhage (Acute) Emphysema lung (Acute) COPD (chronic obstructive pulmonary disease) (Chronic) Personal history of nicotine dependence (Acute) Pleural effusion (Acute) Medical History Palliative care encounter History of depression Tobacco dependence Chronic pain of right wrist Elevated antinuclear antibody (DEJON) level Hearing loss Tubular adenoma of colon Lung cancer Skin lesion of scalp Essential tremor Anemia Fibrothorax History of elevated antinuclear antibody (DEJON) Tubular adenoma Carcinoma of left lung Long-term use of high-risk medication Erectile dysfunction Elevated PSA Thyroid nodule Pleural effusion, left Nicotine dependence, cigarettes, uncomplicated Non-small cell carcinoma of lung Squamous cell carcinoma of left lung BPH (benign prostatic hyperplasia) Elevated serum creatinine Oral pharyngeal candidiasis Squamous cell carcinoma Afib Cardioversion [facility] 11/08/2022 COVID-19 Unintentional weight loss Positive DEJON (antinuclear antibody) Stool guaiac positive IFOB Coronary artery disease Cataract Pain in right wrist Positive anaplasmosis titer Hearing loss, 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 Gutiérrez 03/2021 lung CA Social History Smoking/Tobacco Use Status: Former Tobacco Use Quit Date: 12/09/21 Smoking risk assessment performed?: Yes Alcohol Intake: former Drug use: Rarely Substance use type: marijuana Do you feel safe at home: Yes Do you feel safe in your relationship?: Yes
--- NOTE | 2023-12-11 21:41 | W.PM.HP.N ---
Date of service: 12/11/23 Time of Service: 21:45 Assessment and Plan Assessment and plan (1) Atrial fibrillation with RVR: Status: Acute Assessment and plan: -Patient found to be in fib RVR during cardiology visit earlier in the morning of admission -Heart rate in the emergency department up to the 150s -While in the emergency department patient received total of 15 mg IV Lopressor, and 20 mg IV Dilt -likely due to patient being noncompliant having not taken his anticoagulant or amiodarone for the last 3 weeks -Care discussed with [facility] cardiology who made the following recommendations: -Do not give any IV rate control medications, it is ok for patients rate to remain elevated overnight -Continue p.o. Lopressor 50 mg every 6 hours -Start heparin drip -N.p.o. at midnight all in preparation for transfer and [facility] cardioversion on the morning of , 12/12/2023 (2) HFrEF (heart failure with reduced ejection fraction): Status: Acute Assessment and plan: - Likely secondary to fib RVR as noted above -Patient was given a total of 120 mg IV Lasix in the emergency department with about 1500 mL urine output -Continue to monitor urine output and give additional Lasix as needed (3) Acute respiratory failure with hypoxemia: Status: Acute Assessment and plan: - Likely secondary to febrile ER and acute exacerbation of HFrEF as noted above -Patient placed on BiPAP for comfort with significant improvement -Will recommend continuing BiPAP overnight (4) COPD (chronic obstructive pulmonary disease): Status: Chronic Assessment and plan: - Without acute exacerbation History of Present Illness History of Present Illness Chief Complaint: shortness of breath Narrative: 72-year-old male with past medical history of A-fib on Xarelto and amiodarone, history of tachycardia induced cardiomyopathy, COPD, depression, who has not been taking any of his home medications for about 3 weeks presents to the emergency department complaints of shortness of breath. Patient seen his pewter caster earlier this morning and stated the patient was back in atrial fibrillation with rapid ventricular rate and stated he had not taken any of his medication over the last 3 weeks. Additionally, he was also short of breath and was likely in congestive heart failure and was told to present to the emergency department for further evaluation. Patient denies any lightheadedness, dizziness, chest pain, nausea vomiting or diarrhea. In the emergency department the patient was noted as having a heart rate in the 150s, blood pressure with systolics in the 170s, tachypnea with respiratory rates in the low 40s, and acute hypoxic respiratory failure with a pulse ox of 77% for which the patient was placed on BiPAP 12/13. CBC was unremarkable, CMP showed an elevated total bilirubin of 1.56, proBNP was 3958, and chest x-ray did not show any acute findings. While in the emergency department the patient received IV metoprolol totaling 15 mg, and a diltiazem bolus of 20 mg IV and was placed on a diltiazem drip. Additionally, he received a total of 120 mg of IV Lasix which did result in significant urine output of about 1.5 L. Emergency room PA consulted [facility] cardiology who accepted the patient for transfer under the care of Dr. Gray, but stated patient would not be able to transfer until tomorrow morning, , 12/12/2023 due to bed capacity. They recommended this time that diltiazem drip be discontinued, patient be started on a heparin drip, and that he be n.p.o. at midnight and continue 50 mg of p.o. Lopressor every 6 hour in preparation for [facility] cardioversion upon transfer. Which time emergency room PA paged hospitalist for admission for patient with A-fib RVR, acute exacerbation of HFrEF likely due to tachycardia induced cardiomyopathy, and acute hypoxic respiratory failure. Review of Systems All systems reviewed & are unremarkable except as noted in HPI and below PFSH All Active Problems (Updated 12/11/23 @ 21:51 by Tod Engle MD) Depression (Chronic) Acute respiratory failure with hypoxemia (Acute) HFrEF (heart failure with reduced ejection fraction) (Acute) Atrial fibrillation with RVR (Acute) CHF (congestive heart failure) (Chronic) Atrial fibrillation (Chronic) On amiodarone therapy (Acute) Imbalance (Acute) Peripheral neuropathy (Acute) Hydropneumothorax (Acute) Trapped lung (Acute) Pleural effusion (Acute) Weakness (Acute) Hypoxemia (Acute) Alcohol use (Acute) Weakness (Acute) Caregiver stress (Acute) History of lung cancer (Acute) Supplemental oxygen dependent (Acute) Frequent falls (Acute) Advanced care planning/counseling discussion (Acute) Tachycardia (Acute) Dyspnea and respiratory abnormalities (Acute) S/P thoracotomy (Acute) Atrial flutter (Chronic) Loculated pleural effusion (Acute) ADHD (Chronic) Panic disorder (Chronic) Alcohol abuse (Chronic) Depression (Chronic) Hypertension (Chronic) Smoker (Acute) Encounter for screening colonoscopy (Acute) S/P colonoscopy (Acute ~04/28/18) Colorectal polyp detected on colonoscopy (Acute ~04/28/18) Tubular adenoma Retinal hemorrhage (Acute) Emphysema lung (Acute) COPD (chronic obstructive pulmonary disease) (Chronic) Personal history of nicotine dependence (Acute) Pleural effusion (Acute) Medical History Palliative care encounter History of depression Tobacco dependence Chronic pain of right wrist Elevated antinuclear antibody (DEJON) level Hearing loss Tubular adenoma of colon Lung cancer Skin lesion of scalp Essential tremor Anemia Fibrothorax History of elevated antinuclear antibody (DEJON) Tubular adenoma Carcinoma of left lung Long-term use of high-risk medication Erectile dysfunction Elevated PSA Thyroid nodule Pleural effusion, left Nicotine dependence, cigarettes, uncomplicated Non-small cell carcinoma of lung Squamous cell carcinoma of left lung BPH (benign prostatic hyperplasia) Elevated serum creatinine Oral pharyngeal candidiasis Squamous cell carcinoma Afib Cardioversion [facility] 11/08/2022 COVID-19 Unintentional weight loss Positive DEJON (antinuclear antibody) Stool guaiac positive IFOB Coronary artery disease Cataract Pain in right wrist Positive anaplasmosis titer Hearing loss, 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) Surgical History History of colonoscopy (~01/2022) History of appendectomy S/P partial lobectomy of lung [facility] ARACELIYadi Gutiérrez 03/2021 lung CA RH Social History Smoking/Tobacco Use Status: Former Tobacco Use Quit Date: 12/09/21 Smoking risk assessment performed?: Yes Alcohol Intake: former Drug use: Rarely Substance use type: marijuana Do you feel safe at home: Yes Do you feel safe in your relationship?: Yes Meds Allergies and Home Medications Allergies Allergy/AdvReac Type Severity Reaction Status Date / Time seasonal Allergy Other (See Uncoded 12/11/23 18:15 Comment) Home Medications ?Medication ?Instructions ?Recorded ?Confirmed ?Type albuterol sulfate 90 mcg/actuation 2 puff inhalation Q6H PRN 05/24/21 12/11/23 History aerosol inhaler (ProAir HFA) bupropion HCl 150 mg tablet,12 hr 150 mg PO QAM 05/24/21 12/11/23 History sustained-release tamsulosin 0.4 mg capsule 0.4 mg PO DAILY 05/24/21 12/11/23 History rivaroxaban 20 mg tablet (Xarelto) 1 tab PO DAILY 12/11/21 12/11/23 History hydroxychloroquine 200 mg tablet 200 mg PO DAILY 02/06/22 12/11/23 History acetaminophen 650 mg 1,300 mg PO DAILY 03/29/22 12/11/23 History tablet,extended release (Tylenol Arthritis Pain) calcium carbonate 600 mg-vitamin 1 tab PO DAILY 03/29/22 12/11/23 History D3 20 mcg (800 unit) tablet cholecalciferol (vitamin D3) 25 25 mcg PO DAILY 03/29/22 12/11/23 History mcg (1,000 unit) capsule albuterol sulfate 0.63 mg/3 mL 0.63 mg (3 mL) inhalation QID PRN 06/26/22 12/11/23 Rx solution for nebulization shortness of breath or wheezing #90 mL magnesium oxide 400 mg (241.3 mg 400 mg PO HS #10 tabs 08/03/22 12/11/23 Rx magnesium) tablet spironolactone 25 mg tablet 25 mg PO DAILY 08/20/22 12/11/23 History cyanocobalamin (vitamin B-12) 1,000 mcg PO DAILY 10/10/22 12/11/23 History 1,000 mcg capsule amiodarone 200 mg tablet 200 mg PO DAILY 11/15/22 12/11/23 History furosemide 40 mg tablet 40 mg PO DAILY 12/07/22 12/11/23 History metoprolol succinate 25 mg 25 mg PO DAILY 12/25/22 12/11/23 History tablet,extended release 24 hr tiotropium bromide 2.5 2 inh inhalation QAM #12 grams 02/27/23 12/11/23 Rx mcg/actuation mist for inhalation (Spiriva Respimat) Exam Narrative Exam Narrative: Well-appearing older gentleman laying in bed in no acute distress with BiPAP mask on, heart irregularly irregular with rates in the 140s, lungs with minimal bilateral diffuse crackles, abdomen soft, nontender, nondistended Results Labs 12/11/23 17:23 12/11/23 17:23 Labs: Laboratory Results - last 24 hr 12/11/23 12/11/23 12/11/23 17:23 18:19 19:07 WBC 9.61 RBC 4.47 Hgb 14.1 Hct 43.1 MCV 96 H MCH 31.5 MCHC 32.7 RDW 14.2 H Plt Count 250 MPV 9.5 Immature Gran % 0.4 Neutrophils % 81.4 Lymphocytes % 10.1 Monocytes % 7.4 Eosinophils % 0.1 Basophils % 0.6 Nucleated RBC % 0.0 Absolute Neutrophils 7.82 H Absolute Lymphocytes 0.97 L Absolute Monocytes 0.71 Absolute Eosinophils 0.01 Absolute Basophils 0.06 VBG pH 7.33 VBG pCO2 48 VBG pO2 31 VBG HCO3 25 VBG Total CO2 23 L VBG O2 Saturation 50 VBG Base Excess -1 Sodium 136 Potassium 3.9 Chloride 101 Carbon Dioxide 23.7 Anion Gap 11.3 H BUN 9 Creatinine 1.4 H Est GFR (CKD-EPI 2020) 53.07 Glucose 98 Calcium 9.5 Magnesium 1.8 Total Bilirubin 1.56 H AST 30 ALT 21 Alkaline Phosphatase 72 Troponin I 58 63 NT-Pro-B Natriuret Pep 3958 H Total Protein 8.1 Albumin 3.8 TSH 2.07 Last Vital Signs Temp 98.2 F 12/11/23 17:23 Pulse 155 H 12/11/23 21:01 Resp 29 H 12/11/23 21:10 BP 97/68 L 12/11/23 21:01 Pulse Ox 96 12/11/23 21:10 Time Spent Time spent with Patient: >75 minutes Time was spent: preparing to see the patient(eg.review tests), obtaining and/or reviewing separately otained hiistory, ordering medications,tests, procedures, referring, communicating with other health direct care provider, indepentently interpreting results, counseling the patient and care coordination
[2023-12-11 21:59] LABS: PTT Activated 22.6 sec (23.6-32.8)
--- OUTSIDE RECORDS SUMMARY | 2023-12-11 22:57 | XMS_ITS | Encounter Summary ---
Author Organization [facility] Address [facility] [place] [address] Care Team Providers Care Wood Form Builder Name Role Phone Tami Olivia Primary Care Provider [phone] Encounter Details Date Type Department Care Team (Late st Contact Info) Description 12/11/2023 [place] [address] Social History Tobacco Use Types Packs/Day Years [...] as of this encounter Plan of Treatment Upcoming Encounters Date Type Department Care Team (Late st Contact Info) Description 12/12/2023 Hospital Encounter Heart and Vascular Unit Level 3 [place] [address] Tiera Goldsmith MD [facility] [address] [place] [id number] Scheduled Procedures Name Priority Associated Diagnoses Date/Ti me ELECTROPHYSIOLOGY PROCEDURE Persistent atrial fibrillation CARDIOVERSION-ELECTIVE (WRVU 2) persistent atrial fibrillation TRANSESOPHAGEAL ECHOCARDIOGR AM (WRVU 2.3) persistent atrial fibrillation documented as of this encounter Procedures Procedure Name Priority Date/Time Associated Diagnosis Comments MISC EXTERNAL CARDIOLOGY RESULT Routine 12/11/2023 6:19 PM EDT documented in this encounter Results * External Cardiology Result (12/11/2023 6:19 PM EDT) Anatomical Region Laterality Modality Other Historical Provider EXTERNAL CARDIOLO GY RESULT documented in this encounter Visit Diagnoses Not on filedocumented in this encounter Care Teams Wood Form Builder Relationship Specialty Start Date End Date Tami Olivia [address] [place] [address] PCP - General Family Medicine 12/30/20 documented as of this encounter
--- OUTSIDE RECORDS SUMMARY | 2023-12-11 22:57 | XMS_ITS | Clinical Summary ---
Author Organization [facility] Address [facility] [place] [address] Care Team Providers Care Natural Sciences Professor Name Role Phone [email or web address] Primary Care Provider [...] Date Type Department Care Team Description 12/11/2023 [place] [address] Charbel Cerrato MD 12/11/2023 External [place] [address] 12/11/2023 Orders Only Cardiology at [address] [phone] Sekou Canales MD Persistent atrial fibrillation from [...] drink = 0.6 oz pur e alcohol) [facility] Inpatient Questions Answer Date Recorded Does Anyone [...] 11/08/2022 11:10 AM EDT Plan of Treatment Upcoming Encounters Date Type Department Care Team (Late st Contact Info) Description 12/12/2023 Hospital Encounter Heart and Vascular Unit Level 3 [place] [address] [facility] [place] [address] Scheduled Procedures Name Priority Associated Diagnoses Date/Ti [...] Directive 2004 AAA Screen 2014 Covid-19 Vaccine ( season) 2023 Influenza (Flu) vaccine (1 o f 1 - Influenza standard series) 11/10/2023 Medical Devices Implanted Type Area Sheet Metal Smith Device Identifier Shelf Expiration Date Model / Serial / Lot Patch Vascular [id number] Straight Abd Soft Conformable ([id number]) ([employer]) - [id number] Implanted:Qty: 1 on 05/18/2022 by Gilmer Gutiérrez MD at [facility] IMPLANTS Left: Chest Wall [employer] [id number] 12/04/2026 [id number] / [id number] / NA Procedures Procedure Name Priority Date/Time Associated Diagnosis Comments MISC EXTERNAL CARDIOLOGY RESULT Routine 12/11/2023 6:19 PM EDT from Last 3 Months Results * External Cardiology Result (12/11/2023 6:19 PM EDT) Anatomical Region Laterality Modality Other Historical Provider EXTERNAL CARDIOLO GY RESULT from Last 3 Months Advance Directives * Attempt Cardiopulmonary Resuscitation - [...] Status decision made by: Patient Care Teams Natural Sciences Professor Relationship Specialty Start Date End Date Tami Olivia [address] [place] [address] PCP - General Family Medicine 12/30/20
--- OUTSIDE RECORDS SUMMARY | 2023-12-11 22:57 | XMS_ITS | Encounter Summary ---
Author Organization [facility] Address [facility] [place] [address] Care Team Providers Care Oceanic Sciences Professor Name Role Phone Tami Olivia Primary Care Provider [phone] Encounter Details Date Type Department Care Team (Late st Contact Info) Description 12/11/[address] [facility] [place] [phone] Charbel Cerrato MD [facility] [place] [place] [address] Social History Tobacco Use Types Packs/Day Years [...] encounter Miscellaneous Notes * Telephone Encounter - Charbel Cerrato MD - 12/11/2023 9:20 PM EDT 72M with AF who self-dc'ed his amio, metop and xarelto 3 weeks ago, and presented to ED today with AF RVR. Per provider there, he is in heart failure with elevated pBNP, CXR with pulmonary edema. They are calling with questions on how to rate contgrol. They currently have him on a dilt drip and have given dilt ivp once, he remains tachycardic. I asked that they stop the dilt entirely, as it is contraindicated in decompensated HF. Unclear whether this is entirely rate driven or now a tachymyopathy. I asked that they start metop tartrate 50 po q6h and continue to hold amio, as he's been off AC for 3 weeks at least. He'll be transferred for further evaluation.l documented in this encounter Plan of Treatment Upcoming Encounters Date Type Department Care Team (Late st Contact Info) Description 12/12/2023 Hospital Encounter Heart and Vascular Unit Level 3 [place] [address] Tiera Goldsmith MD [facility] [address] Scheduled Procedures Name Priority Associated Diagnoses Date/Ti me ELECTROPHYSIOLOGY PROCEDURE Persistent atrial fibrillation CARDIOVERSION-ELECTIVE (WRVU 2) persistent atrial fibrillation TRANSESOPHAGEAL ECHOCARDIOGR AM (WRVU 2.3) persistent atrial fibrillation documented as of this encounter Visit Diagnoses Not on filedocumented in this encounter Care Teams Oceanic Sciences Professor Relationship Specialty Start Date End Date Tami Olivia [address] [place] [address] PCP - General Family Medicine 12/30/20 documented as of this encounter
--- OUTSIDE RECORDS SUMMARY | 2023-12-11 22:58 | XMS_ITS | Encounter Summary ---
Author Organization Formerly [facility] Address [facility] [place] [address] Care Team Providers Care Automobile Or Truck Rental Dispatcher Name Role Phone Tami Olivia Primary Care Provider [phone] Reason for Referral * Rehabilitation (Urgent) - Closed Specialty Diagnoses / Procedures Referred By Bert gautam Referred To Contact Rehabilitation Diagnoses Status post lung surgery Camilo Stevenson PA [facility] [place] [address] [facility] [place] [address] Referral ID Status Reason Start Date Expiration Date V isits Requested Visits Authorized [id number] Closed Evaluate and Treat 05/24/2022 05/24/2023 1 1 Reason for Visit * Auth/Cert (Routine) Specialty Diagnoses / Procedures Referred By Bert gautam Referred To Contact Diagnoses 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 Procedures PRO THORACOSCOPY SURG TOT PULM DECORT @ROBOT XI THORACOSCOPY,SURG; W TOTAL DECORTICATION (WRVU 29.13) Gilmer Foster MD [facility] [place] [address] [facility] Referral ID Status Reason Start Date Expiration Date Visits Re quested Visits Authorized [id number] 1 1 Encounter Details Date Type Department Care Team (Latest Contact Info) Description 05/18/2022 6:09 AM EST - 05/24/2022 3:00 PM EDT Hospital Encounter Surgical Unit Level 3 [place] [address] Gilmer Foster MD [facility] [place] [address] Status post lobectomy of lung; Atrial fibrillation, [...] Primary * Linda Mustafa PA - Physician Portable Irrigation Operator * Renu Donald PA - Physician Portable Irrigation Operator * Morales Armas MD - Resident Procedure: [...] Hospital Course: Rajan Marquez was admitted to [facility] on 05/18/2022 via the Same Day Program. [...] have questions please contact the health home care coordinator that requested your imaging first. Electronically signed by: Maryann Magallanes MD, [facility] ([phone]), at 05/18/2022 4:02 PM XR Chest PA & Lateral (Generic) (Exam End: 05/19/2022 11:06 AM) Impression Similar partially loculated moderate left hydropneumothorax. Thank you for letting us participate in the care of this patient. If you are a health care provider and have any questions regarding this report, please contact the number below. For patients who have questions please contact the health home care coordinator that requested your imaging first. Electronically signed by: Savanah Suazo MD, [facility] ([phone]), at 05/19/2022 11:16 AM XR Chest PA [...] have questions please contact the health home care coordinator that requested your imaging first. Electronically signed by: Philip Church MD, [facility] ([phone]), at 05/23/2022 7:33 AM XR Chest PA [...] have questions please contact the health home care coordinator that requested your imaging first. Electronically signed by: Marcus Edwards MD, [facility] ([phone]), at 05/24/2022 8:58 AM XR Chest PA [...] have questions please contact the health home care coordinator that requested your imaging first. Electronically signed by: Marcus Edwards MD, [facility] ([phone]), at 05/24/2022 10:06 AM Pending Studies and [...] a nurse in the Thoracic Clinic at [phone]. After hours or on weekends or holidays please call: [phone] and ask to speak to the Thoracic Surgeon rn utilization management um. Exercise & Activity Level: As you recover [...] please call the thoracic surgery clinic at [phone]. Driving: No driving for 1 week or [...] the Thoracic Clinic or the Thoracic Surgeon rn utilization management um after hours. Please take over the counter [...] Expires XR Chest PA & Lateral (Generic) [02169 [id number] Custom] 06/07/2022 12/07/2022 Process Instructions: Scheduling Instructions: Questions: Reason for exam and clinical history: s/p left thoracotomy and decortication Clinical information / bryan questions for radiologist: eval for effusion and/or ptx Where will study be performed?: [facility] Radiology Portable exam?: Stat read required?: Date of injury if applicable: Requested Time: Referral to Pulmonary Rehab [NIZ340 Custom] As directed Process Instructions: Scheduling Instructions: Questions: May include the following tests: Breathing Retraining: Diaphragmatic Techniques Provider Contact Information: Primary Care Provider: Tami Olivia [phone] Discharge References/Attachments: Discharge References/Attachments None For questions [...] a nurse in the Thoracic Clinic at [phone]. After hours or on weekends or holidays please call: [phone] and ask to speak to the Thoracic Surgeon rn utilization management um. Exercise & Activity Level: As you recover [...] please call the thoracic surgery clinic at [phone]. Driving: No driving for 1 week or [...] the Thoracic Clinic or the Thoracic Surgeon rn utilization management um after hours. Please take over the counter [...] cane for ~ 2 weeks. 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 Enjoys 4-wheeling, kayaking and [...] reach and aware to call for staff nurse assistance with all mobility. Education: Pt educated on ther-ex, breathing, LUE precautions and sling use- and to wait for LUE activity and ROM progression until MD follow, and to have supervision of staff nurse or family for safetywith all mobility Assessment: Rajan Marquez was seen today [facility] Pt friendly and pleasant and was educated [...] and d/c planning. LUIS MIGUEL PEREZ, PT Pager:[phone] Physical Therapy Inpatient Rehabilitation Department * Radha [...] Thoracentesis Left 11/08/2021 Forauer, Ramírez Ziegler MD [facility] INTERVENTIONL RAD ??? PRO BRONCHOSCOPY, DIAGNOSTIC N/A 03/29/2021 ?? BRONCHOSCOPY, DIAGNOSTIC (WRVU 2.78) performed by Gilmer Foster MD at [facility] MAIN OR ??? PRO BRONCHOSCOPY, DIAGNOSTIC N/A 02/08/2022 ?? BRONCHOSCOPY, DIAGNOSTIC (WRVU 2.78) performed by Gilmer Foster MD at [facility] MAIN OR ??? PRO BRONCHOSCOPY, DIAGNOSTIC N/A 05/18/2022 ?? BRONCHOSCOPY, DIAGNOSTIC (WRVU 2.53) performed by Gilmer Foster MD at [facility] OR ??? PRO DECORTICATION, PULMONARY, TOTAL Left 05/18/2022 ?? @THORACOTOMY,DECORTICATION, PULMONARY, TOTAL (WRVU 26.65) performed by Gilmer Foster MDat [facility] OR ? ? PRO INJECTION ANES AGENT &/ STEROID INTERCOSTAL NERVE SINGLE LEVEL Left 03/29/2021 ?? NERVE BLOCK, INTERCOSTAL NERVE (WRVU 1.18) performed by Gilmer Foster MD at [facility] OR ??? PRO RECONSTRUCT INJURED CHEST Left 05/18/2022 ?? @MAJOR RECONSTRUCTION, CHEST WALL (WRVU 22.51) performed by Gilmer Foster MD at [facility] OR ??? PRO THORACOSCOPY SURG LOBECTOMY Left 03/29/2021 ?? @THORACOSCOPY,SURGICAL,W\LOBECTOMY,TOTAL OR SEGMENTAL (WRVU 24.64) performed by Gilmer Foster MD at [facility] OR ??? PRO THORACOSCOPY WITH BIOPSY OF PLEURA Left 02/08/2022 ?? THORACOSCOPY; WITH BIOPSY(IES) OF PLEURA (WRVU 4.58) performed by Gilmer Foster MD at [facility] OR ??? PRO THORACOSCOPY WITH MEDIASTINAL AND REGIONAL LYMPHADENECTOMY ?? 03/29/2021 ?? @THORACOSCOPY, SURG; W/MEDIASTINAL& REGIONAL LYMPHADENECTOMY (WRVU 4.12) performed by Gilmer Foster MD at [facility] OR ??? PRO THORACOSCOPY WITH WEDGE RESECTION AND ANATOMIC LUNG RESECTN Left 03/29/2021 ?? @THORACOSCOPY, SURG; W/DX WEDGE RESC W/ANATOMIC LUNG RESC (WRVU 3) performed by Gilmer Foster MD at [facility] OR ? Social History: Patient lives with [...] more times Total Minutes, Occupational Therapy: 25 (pa x2 ([phone]) Pager: [phone] GRAEME Velasco 05/24/2022 Occupational Therapy Rehabilitation Department [...] wean. We removed the epidural without complication. APIL will sign off at this time. IOJ RN, have performed the documentation for this encounter in the presence of and acting as a scribe for Dr. Molina. [facility] Nurse: Oj Don RN Attending Physician:: Katie [...] cane for ~ 2 weeks. 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 Enjoys 4-wheeling, kayaking and [...] reach and aware to call for staff nurse assistance with all mobility. Education: Pt educated on ther-ex, breathing, and to call for assistance with all mobility Assessment: Rajan Marquez was seen today for [facility] Pt friendly and agreeable to mobilize with encouragement, but needs assistance with line and tube management and cues for safety. He may be getting chest tube d/c'd tomorrow. He is aware to callfor assistance with mobility, and staff nurse aware of his status. Expect d/c to [...] Code: functional mobility LUIS MIGUEL PEREZ, PT Pager:[phone] Physical Therapy Inpatient Rehabilitation Department * Messi [...] IR Thoracentesis Left 11/08/2021 Ramírez Ramirez MD [facility] INTERVENTIONL RAD ??? PRO BRONCHOSCOPY, DIAGNOSTIC N/A 03/29/2021 ?? BRONCHOSCOPY, DIAGNOSTIC (WRVU 2.78) performed by Gilmer Foster MD at [facility] MAIN OR ??? PRO BRONCHOSCOPY, DIAGNOSTIC N/A 02/08/2022 ?? BRONCHOSCOPY, DIAGNOSTIC (WRVU 2.78) performed by Gilmer Foster MD at [facility] MAIN OR ??? PRO BRONCHOSCOPY, DIAGNOSTIC N/A 05/18/2022 ?? BRONCHOSCOPY, DIAGNOSTIC (WRVU 2.53) performed by Gilmer Foster MD at [facility] MAIN OR ??? PRO DECORTICATION, PULMONARY, TOTAL Left 05/18/2022 ?? @THORACOTOMY,DECORTICATION, PULMONARY, TOTAL (WRVU 26.65) performed by Gilmer Foster MDat [facility] MAIN OR ? ? PRO INJECTION ANES AGENT &/ STEROID INTERCOSTAL NERVE SINGLE LEVEL Left 03/29/2021 ?? NERVE BLOCK, INTERCOSTAL NERVE (WRVU 1.18) performed by Gilmer Foster MD at [facility] MAIN OR ??? PRO RECONSTRUCT INJURED CHEST Left 05/18/2022 ?? @MAJOR RECONSTRUCTION, CHEST WALL (WRVU 22.51) performed by Gilmer Foster MD at [facility] OR ??? PRO THORACOSCOPY SURG LOBECTOMY Left 03/29/2021 ?? @THORACOSCOPY,SURGICAL,W\LOBECTOMY,TOTAL OR SEGMENTAL (WRVU 24.64) performed by Gilmer Foster MD at [facility] OR ??? PRO THORACOSCOPY WITH BIOPSY OF PLEURA Left 02/08/2022 ?? THORACOSCOPY; WITH BIOPSY(IES) OF PLEURA (WRVU 4.58) performed by Gilmer Foster MD at [facility] OR ??? PRO THORACOSCOPY WITH MEDIASTINAL AND REGIONAL LYMPHADENECTOMY ?? 03/29/2021 ?? @THORACOSCOPY, SURG; W/MEDIASTINAL& REGIONAL LYMPHADENECTOMY (WRVU 4.12) performed by Gilmer Foster MD at [facility] OR ??? PRO THORACOSCOPY WITH WEDGE RESECTION AND ANATOMIC LUNG RESECTN Left 03/29/2021 ?? @THORACOSCOPY, SURG; W/DX WEDGE RESC W/ANATOMIC LUNG RESC (WRVU 3) performed by Gilmer Foster MD at [facility] OR ? Social History: Patient lives with [...] more times Total Minutes, Occupational Therapy: 34 ([facility] X2 ([phone])) Pager: [phone] Messi Dooley, OT 05/23/2022 Occupational Therapy Rehabilitation [...] acting as a scribe for Dr. Molina. [facility] Nurse: Oj Don RN Resident:: Jakob Dickerson DO Attending Physician:: Katie Molina MD I performed the above scribed service and agree with the accuracy of the note. KATIE MOLINA MD * Camilo Stevenson PA - 05/23/2022 9:19 AM EDT [facility] Department of Thoracic Surgery Inpatient Progress Note Patient Name: Rajan Marquez Patient : 1950 Patient Patient Location: [address] [place] [address] Attending Surgeon: GILMER FOSTER ID: Rajan Marquez [...] Surgical Unit Level 3 Wing D at [facility] Office Visit from 04/30/2022 in Thoracic [facility] [place] [facility] Weight 73.1 kilograms, or 161 pounds 2.5 [...] peripheral edema. Incisions: LEFT posterolateral thoracotomy incision PAPER GUILLOTINE OPERATOR with sterip strips intact. No surrounding erythema, [...] STEVE Black 05/23/2022 Thoracic Surgery Service Pager [phone] * Katie Molina MD - 05/22/2022 9:34 [...] RESECTION @MAJOR RECONSTRUCTION, CHEST WALL (WRVU 22.51) [facility] EPIDURAL ROUNDIN05/22/2022 9:34 AM Average Numeric Rating [...] acting as a scribe for Dr. Molina. [facility] Nurse: Oj Don RN Resident:: Jakob Dickerson DO Attending Physician:: Katie Molina MD I performed the above scribed service and agree with the accuracy of the note. KATIE MOLINA MD * Renu Donald PA - 05/22/2022 6:40 AM EDT Images from the original note were not included. [facility] Department of Thoracic Surgery Inpatient Progress Note Patient Name: Rajan Marquez Patient : 1950 Patient Patient Location: [address] [place] [address] Attending Surgeon: GILMER FOSTER ID: Rajan Marquez [...] Surgical Unit Level 3 Wing D at [facility] Office Visit from 04/30/2022 in [facility]acic [facility] [place] [facility] Weight 77 kg (169 lb 11.2 oz) [...] peripheral edema. Incisions: LEFT posterolateral thoracotomy incision PAPER GUILLOTINE OPERATOR with sterip strips intact. No surrounding erythema, [...] STEVE Patel 05/22/2022 Thoracic Surgery Service Pager [phone] * Devorah Rivera RN - 05/22/2022 4:40 [...] IR Thoracentesis Left 11/08/2021 ForRamírez caldera MD [facility] INTERVENTIONL RAD ??? PRO BRONCHOSCOPY, DIAGNOSTIC N/A 03/29/2021 BRONCHOSCOPY, DIAGNOSTIC (WRVU 2.78) performed by Gilmer Foster MD at [facility] OR ??? PRO BRONCHOSCOPY, DIAGNOSTIC N/A 02/08/2022 BRONCHOSCOPY, DIAGNOSTIC (WRVU 2.78) performed by Gilmer Foster MD at [facility] OR ??? PRO BRONCHOSCOPY, DIAGNOSTIC N/A 05/18/2022 BRONCHOSCOPY, DIAGNOSTIC (WRVU 2.53) performed by Gilmer Foster MD at [facility] OR ??? PRO DECORTICATION, PULMONARY, TOTAL Left 05/18/2022 @THORACOTOMY,DECORTICATION, PULMONARY, TOTAL (WRVU 26.65) performed by [facility] ? ? PRO INJECTION ANES AGENT &/ STEROID INTERCOSTAL NERVE SINGLE LEVEL Left 03/29/2021 NERVE BLOCK, INTERCOSTAL NERVE (WRVU 1.18) performed by Gilmer Foster MD at [facility] OR ??? PRO RECONSTRUCT INJURED CHEST Left 05/18/2022 @MAJOR RECONSTRUCTION, CHEST WALL (WRVU 22.51) performed by Gilmer Foster MD at [facility] OR ??? PRO THORACOSCOPY SURG LOBECTOMY Left 03/29/2021 @THORACOSCOPY,SURGICAL,W\LOBECTOMY,TOTAL OR SEGMENTAL (WRVU 24.64) performed by Johana Foster MD at [facility] OR ??? PRO THORACOSCOPY WITH BIOPSY OF PLEURA Left 02/08/2022 THORACOSCOPY; WITH BIOPSY(IES) OF PLEURA (WRVU 4.58) performed by Gilmer Foster MD at [facility] OR ??? PRO THORACOSCOPY WITH MEDIASTINAL AND REGIONAL LYMPHADENECTOMY 03/29/2021 @THORACOSCOPY, SURG; W/MEDIASTINAL& REGIONAL LYMPHADENECTOMY (WRVU 4.12) performed by Gilmer Foster MD at [facility] MAIN OR ??? PRO THORACOSCOPY WITH WEDGE RESECTION AND ANATOMIC LUNG RESECTN Left 03/29/2021 @THORACOSCOPY, SURG; W/DX WEDGE RESC W/ANATOMIC LUNG RESC (WRVU 3) performed by Johana Foster MD at [facility] MAIN OR Social History: Home set-up: Lives in a ranch style home with a basement and his partner. Bathroom Set-up: Walk in or tub shower on the main level, usually uses the tub shower. Stairs: ramp to enter. Baseline Mobility: hasn't been driving recently and has been using a cane for ~ 2 weeks. 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 Enjoys 4-wheeling, kayaking and [...] Discharge planning and to call for staff nurse assistance with all mobility and needs reinforcement. [...] Code: evaluation LUIS MIGUEL PEREZ, PT Pager: [phone] Physical Therapy Inpatient Rehabilitation Department * Karri [...] doses received in the last 24 hours). aRjan is tolerating a diet and endorses passing [...] scribe for Dr. Karri Ellis. Anesthesia Staff ([facility]) Patient seen and examined on daily rounds. I agree with the above assessment and plan. APIL Nurse: Messi Hanley RN Resident:: Jakob Dickerson DO Attending Physician:: Karri Ellis MD * Renu Donald PA - 05/21/2022 8:11 AM EDT Images from the original note were not included. [facility] Department of Thoracic Surgery Inpatient Progress Note Patient Name: Rajan Marquez Patient : 1950 Patient Patient Location: [address] [place] [address] Attending Surgeon: GILMER FOSTER ID: Rajan Marquez [...] Surgical Unit Level 3 Wing D at [facility] Office Visit from 04/30/2022 in [facility]acic [facility] [place] [facility] Weight 77.3 kg (170 lb 8 oz) [...] QTC Calculated (Bezet) 492 ms Calculated P Jasper 106 degrees Calculated R Jasper 71 degrees Calculated T Jasper -169 degrees INTERPRETATION Sinus tachycardia Incomplete left [...] Result Value Ref Range Surgical Pathology Report [id number] Location: OR; OR11; A The signing pathologist has (i) examined the relevant preparation(s) for the specimen(s) and (ii) rendered or confirmed the diagnosis(es). . Frozen Section FROZEN SECTION DIAGNOSIS CFS - VISCERAL PLEURAL RIND. FROZEN, excision for frozen section Inflamed pleura, no evidence of malignancy (warehouse representative sample) 05/18/22 11:27 Electronically signed by: Malia Lacy MD Verified: 05/18/2022 11:29 Pathologist Performed at: -[facility] Dept. of Pathology, [place] [address] Liner Machine Operator Helper: Maria Ines Marrufo MD, GILMA, CARLITOS Certificate: [id number] This intraoperative consultation should be interpreted as [...] MD Verified: 05/18/2022 11:25 Pathologist Performed at: [facility] Dept. of Pathology, [place] [address] Liner Machine Operator Helper: Maria Ines Marrufo MD, GILMA, [facility] Certificate: [id number] This intraoperative consultation should be interpreted as [...] Value Ref Range T&S only valid at [facility] H[facility] Basic Metabolic Panel (non-fasting) Result Value [...] QTC Calculated (Bezet) 454 ms Calculated R Jasper 82 degrees Calculated T Jasper -102 degrees INTERPRETATION Sinus tachycardia with 1st [...] Epidural w/ PCEA per APS recommendations. Tylenol, PARTNER MARKETING INTERN Bupropion Card: May consider increasing Metoprolol to 25mg BID, amiodarone (200mg daily) Pulm: IS/cough/deep breathe/OOB/ambulate. Continue left CT to -20 suction, monitor output. PARTNER MARKETING INTERN spiriva, albuterol FENGI: Stop IVF, Regular diet. RBOs Renal/: Matt in place - will keep until epidural out, monitor UOP Heme: SQH, holding home Xarelto ID: SHELLEY Endo: SHELLEY MSK: PARTNER MARKETING INTERN hydroxychloroquine for synovitis PPx: scds; SQH, Ambulate 4x a day. OOB. Other: Left arm in sling when OOB Dispo: full code, floor status All plans formulated in discussion with and directed by attending thoracic surgeon Dr. Foster. STEVE Peñaloza 05/21/2022 Thoracic Surgery Service Pager [phone] * Devorah Rivera RN - 05/21/2022 4:15 [...] Davis MD - 05/20/2022 7:39 AM EDT [facility] Department of Thoracic Surgery Inpatient Progress Note Patient Name: Rajan Marquez Patient : 1950 Patient Patient Location: [address] [place] [address] Attending Surgeon: GILMER FOSTER ID: Rajan Marquez [...] Surgical Unit Level 3 Wing D at [facility] Office Visit from 04/30/2022 in Thoracic Surgery [place] [facility] Weight 75.4 kg (166 lb 3.2 oz) [...] QTC Calculated (Bezet) 492 ms Calculated P Jasper 106 degrees Calculated R Jasper 71 degrees Calculated T Jasper -169 degrees INTERPRETATION Sinus tachycardia Incomplete left [...] Result Value Ref Range Surgical Pathology Report [id number] Location: OR; OR11; A The signing pathologist has (i) examined the relevant preparation(s) for the specimen(s) and (ii) rendered or confirmed the diagnosis(es). . Frozen Section FROZEN SECTION DIAGNOSIS CFS - VISCERAL PLEURAL RIND. FROZEN, excision for frozen section Inflamed pleura, no evidence of malignancy (warehouse representative sample) 05/18/22 11:27 Electronically signed by: Malia Lacy MD Verified: 05/18/2022 11:29 Pathologist Performed at: -[facility] Dept. of Pathology, [place] [address] Liner Machine Operator Helper: Maria Ines Marrufo MD, GILMA, CLIA Certificate: [id number] This intraoperative consultation should be interpreted as [...] MD Verified: 05/18/2022 11:25 Pathologist Performed at: [facility] Dept. of Pathology, [place] [address] Liner Machine Operator Helper: Maria Ines Marrufo MD, GILMA, CLIA Certificate: [id number] This intraoperative consultation should be interpreted as [...] Value Ref Range T&S only valid at [facility] Basic Metabolic Panel (non-fasting) Result Value [...] have questions please contact the health home care coordinator that requested your imaging first. Electronically signed by: Maryann Magallanes MD, [facility] ([phone]), at 05/18/2022 4:02 PM Assessment: Rajan Marquez [...] PT consulted. Plan: Neuro: Epidural w/ PCEA. PARTNER MARKETING INTERN bupropion Card: HDS, PARTNER MARKETING INTERN metoprolol, amiodarone (200mg daily) Pulm: IS/cough/deep breathe/OOB/ambulate. Continue left CT to -20 suction, monitor output. PARTNER MARKETING INTERN spiriva, albuterol FENGI: LR @100 ml/hr, Regular diet. RBOs Renal/: Matt in place, monitor UOP Heme: SQH ID: SHELLEY Endo: SHELLEY MSK: PARTNER MARKETING INTERN hydroxychloroquine for synovitis PPx: scds; SQH, Ambulate 4x a day. OOB. Dispo: full code, floor status Vaughn Davis MD 05/20/2022 Thoracic Surgery Service Pager [phone] * Karri Ellis MD - 05/19/2022 9:31 [...] Armas MD - 05/19/2022 8:15 AM EST [facility] Department of Thoracic Surgery Inpatient Progress Note Patient Name: Rajan Marquez Patient : 1950 Patient Patient Location: [address] [place] [address] Attending Surgeon: GILMER FOSTER ID: Rajan Marquez [...] Surgical Unit Level 3 Wing D at [facility] Office Visit from 04/30/2022 in [facility]acic Surgery [place] [facility] Weight 71.5 kg (157 lb 11.2 oz) [...] QTC Calculated (Bezet) 492 ms Calculated P Jasper 106 degrees Calculated R Jasper 71 degrees Calculated T Jasper -169 degrees INTERPRETATION Sinus tachycardia Incomplete left [...] Result Value Ref Range Surgical Pathology Report [id number] Location: OR; OR11; A The signing pathologist has (i) examined the relevant preparation(s) for the specimen(s) and (ii) rendered or confirmed the diagnosis(es). . Frozen Section FROZEN SECTION DIAGNOSIS CFS - VISCERAL PLEURAL RIND. FROZEN, excision for frozen section Inflamed pleura, no evidence of malignancy (warehouse representative sample) 05/18/22 11:27 Electronically signed by: Malia Lacy MD Verified: 05/18/2022 11:29 Pathologist Performed at: [facility] Dept. of Pathology, [place] [address] Liner Machine Operator Helper: Maria Ines Marrufo MD, FCLESLY, CLIA Certificate: [id number] This intraoperative consultation should be interpreted as [...] MD Verified: 05/18/2022 11:25 Pathologist Performed at: -[facility] Dept. of Pathology, [place] [address] Liner Machine Operator Helper: aMria Ines Marrufo MD, FCAP, CLIA Certificate: [id number] This intraoperative consultation should be interpreted as [...] Value Ref Range T&S only valid at [facility] Basic Metabolic Panel (non-fasting) Result Value [...] have questions please contact the health home care coordinator that requested your imaging first. Electronically signed by: Maryann Magallanes MD, [facility] ([phone]), at 05/18/2022 4:02 PM Assessment: Rajan Marquez [...] PT consulted. Plan: Neuro: Epidural w/ PCEA. PARTNER MARKETING INTERN bupropion Card: HDS, PARTNER MARKETING INTERN metoprolol, amiodarone (200mg daily) Pulm: IS/cough/deep breathe/OOB/ambulate. Continue left CT to -20 suction, monitor output. PARTNER MARKETING INTERN spiriva, albuterol FENGI: LR @100 ml/hr, Regular diet. RBOs Renal/: Matt in place, monitor UOP Heme: SQH ID: SHELLEY Endo: SHELLEY MSK: PARTNER MARKETING INTERN hydroxychloroquine for synovitis PPx: scds; SQH, Ambulate 4x a day. OOB. Dispo: full code, floor status Morales Armas MD 05/19/2022 Thoracic Surgery Service Pager [phone] * Morales Armas MD - 05/18/2022 3:27 PM EST [facility] Department of Thoracic Surgery Inpatient Post Op Check Patient Name: Rajan Marquez Patient : 1950 Patient Patient Location: [address] Attending Surgeon: GILMER FOSTER ID: Rajan [...] Admission (Current) from 05/18/2022 in PACU at [facility] OfficeVisit from 04/30/2022 in Thoracic Surgery at [facility] Weight 71.5 kg (157 lb 11.2 oz) [...] QTC Calculated (Bezet) 492 ms Calculated P Jasper 106 degrees Calculated R Jasper 71 degrees Calculated T Jasper -169 degrees INTERPRETATION Sinus tachycardia Incomplete left [...] Result Value Ref Range Surgical Pathology Report [id number] Location: OR; OR11; A The signing pathologist has (i) examined the relevant preparation(s) for the specimen(s) and (ii) rendered or confirmed the diagnosis(es). . Frozen Section FROZEN SECTION DIAGNOSIS CFS - VISCERAL PLEURAL RIND. FROZEN, excision for frozen section Inflamed pleura, no evidence of malignancy (warehouse representative sample) 05/18/22 11:27 Electronically signed by: Malia Lacy MD Verified: 05/18/2022 11:29 Pathologist Performed at: -[facility] Dept. of Pathology, [place] [id number] Liner Machine Operator Helper: Maria Ines Marrufo MD, FCAP, CLIA Certificate: [id number] This intraoperative consultation should be interpreted as [...] MD Verified: 05/18/2022 11:25 Pathologist Performed at: -[facility] Dept. of Pathology, [place] [address] Liner Machine Operator Helper: Maria Ines Marrufo MD, AP, [place] Certificate: [id number] This intraoperative consultation should be interpreted as [...] Value Ref Range T&S only valid at [facility] Hosp Basic Metabolic Panel (non-fasting) Result Value [...] have questions please contact the health home care coordinator that requested your imaging first. Electronically signed by: Maryann Magallanes MD, [facility] ([phone]), at 05/18/2022 4:02 PM Assessment: Rajan Marquez is a 71 y.o. male who is Day of Surgery s/p robotic, converted to open left thoracotomy and total decortication. He is currently in stable condition and recovering well postoperatively.Post op CXR and labs reviewed. Maintain posterior CT strict suction and use a sling when OOB for left arm Plan: Neuro: Epidural w/ PCEA. PARTNER MARKETING INTERN bupropion Card: HDS, PARTNER MARKETING INTERN metoprolol, amiodarone (200mg daily) Pulm: IS/cough/deep breathe/OOB/ambulate. Continue left CT to -20 suction, monitor output. PARTNER MARKETING INTERN spiriva, albuterol FENGI: LR @100 ml/hr, Regular diet. RBOs Renal/: Matt in place, monitor UOP Heme: SQH ID: SHELLEY Endo: SHELLEY MSK: PARTNER MARKETING INTERN hydroxychloroquine for synovitis PPx: scds; SQH, Ambulate 4x a day. OOB. Dispo: full code, floor status Vaughn Davis MD 05/18/2022 Thoracic Surgery Service Pager [phone] * Missy Abdi RN - 05/18/2022 2:31 [...] in later 1535 Called for CXR [address] removed Phase II met Feels better After [...] IR Thoracentesis Left 11/08/2021 Ramírez Ramirez MD [facility] INTERVENTIONL RAD ??? PRO BRONCHOSCOPY, DIAGNOSTIC N/A 03/29/2021 BRONCHOSCOPY, DIAGNOSTIC (WRVU 2.78) performed by Gilmer Foster MD at [facility] MAIN OR ??? PRO BRONCHOSCOPY, DIAGNOSTIC N/A 02/08/2022 BRONCHOSCOPY, DIAGNOSTIC (WRVU 2.78) performed by Gilmer Foster MD at [facility] MAIN OR ? ? PRO INJECTION ANES AGENT &/ STEROID INTERCOSTAL NERVE SINGLE LEVEL Left 03/29/2021 NERVE BLOCK, INTERCOSTAL NERVE (WRVU 1.18) performed by Gilmer Foster MD at [facility] MAIN OR ??? PRO THORACOSCOPY SURG LOBECTOMY Left 03/29/2021 @THORACOSCOPY,SURGICAL,W\LOBECTOMY,TOTAL OR SEGMENTAL (WRVU 24.64) performed by Johana Foster MD at [facility] MAIN OR ??? PRO THORACOSCOPY WITH BIOPSY OF PLEURA Left 02/08/2022 THORACOSCOPY; WITH BIOPSY(IES) OF PLEURA (WRVU 4.58) [facility]?? PRO THORACOSCOPY WITH MEDIASTINAL AND REGIONAL LYMPHADENECTOMY 03/29/2021 @THORACOSCOPY, SURG; W/MEDIASTINAL& REGIONAL LYMPHADENECTOMY (WRVU 4.12) performed by Gilmer Foster MD at [facility] MAIN OR ??? PRO THORACOSCOPY WITH WEDGE RESECTION AND ANATOMIC LUNG RESECTN Left 03/29/2021 @THORACOSCOPY, SURG; W/DX WEDGE RESC W/ANATOMIC LUNG RESC (WRVU 3) performed by Johana Foster MD at [facility] MAIN OR MEDS: No current facility-administered [...] STEVE Sethi 05/18/2022 Thoracic Surgery Service Pager [phone] documented in this encounter Miscellaneous Notes * [...] none Patient is insured through: Primary Insurance: [facility]NA[facility]ED MEDICARE Payor: [facility]NA[facility]ED MEDICARE / Plan: [facility] COM[facility]TE / Product Type: *No Producttype* / Secondary Insurance: N/A Prescription Coverage: Yes This plan was formulated with input from patient and team. All are in agreement with plan. Kenia Sepulveda RN-BSN-CM Pager: [phone] * Plan of Care - Raquel Hoffmann [...] of Care Management Initial Assessment Kenia A Nogales, RN reviewed record and discussed patient with [...] surrogate would be surrogate decision maker per [place] decision making law. (Only good for 180 days) Any patient receiving care in [place] must abide by [place] law. The hierarchy for surrogate decision making [...] (i) The agent with financial power of workers compensation attorney or a conservator appointed in accordance [...] straight Home Address confirmed as: [address] [address] Social & Family Supports: All names listed [...] Specific Information: none Health/Prescription Coverage: Primary Insurance: [employer] MEDICARE Payor: [employer] MEDICARE / Plan: [facility] MANAGED MEDICARE COMPLETE / Product Type: *No Producttype* / Secondary Insurance: N/A ; Prescription Coverage: Yes Preferred Pharmacy: [email or web address] [address] [address] Status: Patient is a : No Primary Care Provider confirmed: Tami Olivia [phone] Patient/Caregiver Goals of Treatment: discharge home Potential Needs for Transition of Care: home health care Agency Referrals: I have met with the patient to: ?? discuss discharge planning needs. ?? provide the [facility], Office of Care Management letter from the Liner Machine Operator Helper pertaining to rehabreferrals. ?? provide a letter describing our affiliations within the [facility] and educate about their right to choose where referrals are sent. ?? provide a list of Home Health Agencies / Durable Medical Equipment vendors which serve their preferred geographic area. ?? provided patient with [facility] Star Quality Rating handout. They have requested referrals to: [facility] [employer] [address] [place] [address] Note routed to a Bariatric Surgeon who will communicate referrals to facilities and [...] of care planning. Kenia Sepulveda RN-BSN-CM Pager: [phone] * Initial Assessments - Messi Dooley, OT [...] IR Thoracentesis Left 11/08/2021 Ramírez Ramirez MD [facility] INTERVENTIONL RAD ??? PRO BRONCHOSCOPY, DIAGNOSTIC N/A 03/29/2021 BRONCHOSCOPY, DIAGNOSTIC (WRVU 2.78) performed by Gilmer Foster MD at [facility] MAIN OR ??? PRO BRONCHOSCOPY, DIAGNOSTIC N/A 02/08/2022 BRONCHOSCOPY, DIAGNOSTIC (WRVU 2.78) performed by Gilmer Foster MD at [facility] MAIN OR ??? PRO BRONCHOSCOPY, DIAGNOSTIC N/A 05/18/2022 BRONCHOSCOPY, DIAGNOSTIC (WRVU 2.53) performed by Gilmer Foster MD at [facility] MAIN OR ??? PRO DECORTICATION, PULMONARY, TOTAL Left 05/18/2022 @THORACOTOMY,DECORTICATION, PULMONARY, TOTAL (WRVU 26.65) performed by Gilmer Foster MD [facility] MAIN OR ? ? PRO INJECTION ANES AGENT &/ STEROID INTERCOSTAL NERVE SINGLE LEVEL Left 03/29/2021 NERVE BLOCK, INTERCOSTAL NERVE (WRVU 1.18) performed by Gilmer Foster MD at [facility] MAIN OR ??? PRO RECONSTRUCT INJURED CHEST Left 05/18/2022 @MAJOR RECONSTRUCTION, CHEST WALL (WRVU 22.51) performed by Gilmer Foster MD at [facility] MAIN OR ??? PRO THORACOSCOPY SURG LOBECTOMY Left 03/29/2021 @THORACOSCOPY,SURGICAL,W\LOBECTOMY,TOTAL OR SEGMENTAL (WRVU 24.64) performed by Johana Foster MD at [facility] MAIN OR ??? PRO THORACOSCOPY WITH BIOPSY OF PLEURA Left 02/08/2022 THORACOSCOPY; WITH BIOPSY(IES) OF PLEURA (WRVU 4.58) [facility] ??? PRO THORACOSCOPY WITH MEDIASTINAL AND REGIONAL LYMPHADENECTOMY 03/29/2021 @THORACOSCOPY, SURG; W/MEDIASTINAL& REGIONAL LYMPHADENECTOMY (WRVU 4.12) performed by Gilmer Foster MD at [facility] MAIN OR ??? PRO THORACOSCOPY WITH WEDGE RESECTION AND ANATOMIC LUNG RESECTN Left 03/29/2021 @THORACOSCOPY, SURG; W/DX WEDGE RESC W/ANATOMIC LUNG RESC (WRVU 3) performed by Johana Foster MD at [facility] MAIN OR Social History: Patient lives [...] ?? WNL / WFL Communication: WFL B [place] (pt reports hearing aids are no longer [...] planning. Total Minutes, Occupational Therapy: 40 (Eval ([id number])) 2017 OT Evaluation Code Rationale: ?? Diagnosis [...] and measurable assessment of functional outcome. Pager: [phone] Messi Dooley OT 05/21/2022 Occupational Therapy Rehabilitation [...] Jose Manuel Salinas RN RN/CM - Cellphone: [phone] Pager: [phone] Covering Service RN/CM * Plan of Care - Mamta Mccullough RN - 05/19/2022 4:19 PM EST OUTCOME EVALUATION NOTE: OUTCOME SUMMARY: VSS BPs soft (250ml Bolus given) on 2L NC-coughing w/ mild PETERSON; denies CP/N/V; pain well managed with epidural -04/20; dressings intact no KENNEL TECHNICIAN known air leak; making adeq urine; tolerating [...] managed with epidural -04/20; dressings intact no KENNEL TECHNICIAN known air leak; making adeq urine; tolerating [...] Foster MD - 05/18/2022 3:42 PM EST [facility] Operative Note Patient Name: Rajan Marquez : [id number] MR#: [id number] Case Date: 05/18/2022 Surgeon: Surgeon(s) and Role: * Gilmer Foster MD - Primary * Linda Mustafa PA - Physician Portable Irrigation Operator * Renu Donald PA - Physician Portable Irrigation Operator * Morales Armas MD - Resident Preoperative [...] 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 [facility] confirmed the patient's identity [...] muscular attachments and divided with the sliding tribal council member and then excised in pieces with a [...] muscular attachments and divided with the sliding tribal council member. This maneuverpermitted a Finochietto rib driller hand to be placed. The remainder of the [...] did appear to expand significantly. A 28 [place] chest tube was placed thr ough the camera port and advanced to the apex of the hemithorax and secured. We assessed the defectmade by resection of the fifth and sixth ribs. Because of the concern for scapular trapping, we elected to patch this defect. 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 Left visceral pleural [...] Vascular Unit Level 3 [place] [address] Tiera Goldsmith MD [facility] [place] [address] Scheduled Procedures Name Priority Associated Diagnoses Date/Ti [...] 05/18/2022 1:37 PM EST TYPE AND SCREEN (MC/CGP/MARY) STAT 05/18/2022 1:37 PM EST @MAJOR RECONSTRUCTION, [...] 05/18/2022 10:17 AM EST Reconstruct Injured Chest (10625) 05/18/2022 9:19 AM EST Status post lobectomy of lung MODIFIER RIB RESECTION 05/18/2022 9:19 AM EST Status post lobectomy of lung Bronchoscopy, Diagnostic (43640) 05/18/2022 9:19 AM EST Status post lobectomy of lung Decortication, Pulmonary, Total (12372) 05/18/2022 9:19 AM EST Status post lobectomy [...] have questions please contact the health home care coordinator that requested your imaging first. ? Electronically signed by: Savanah Suazo MD, [facility] ([phone]), at 06/11/2022 4:12 PM Narrative 06/11/2022 4:12 [...] resection. Procedure Note Savanah Paredes MD - 04/03/2023 EXAMINATION: XR CHEST PA AND LATERAL (GENERIC) [...] patients who have questions please contactthe health home care coordinator that requested your imaging first. Gilmer Foster [...] have questions please contact the health home care coordinator that requested your imaging first. ? Electronically signed by: Marcus Edwards MD, [facility] ([phone]), at 05/24/2022 10:06 AM Narrative 05/24/2022 10:06 [...] patients who have questions please contactthe health home care coordinator that requested your imaging first. Electronically signed by: Marcus Edwards MD, [facility]([phone]), at 05/24/2022 10:06 AM Gilmer Foster MD [...] have questions please contact the health home care coordinator that requested your imaging first. ? Electronically signed by: Marcus Edwards MD, [facility] ([phone]), at 05/24/2022 8:58 AM Narrative 05/24/2022 8:58 [...] patients who have questions please contactthe health home care coordinator that requested your imaging first. Electronically signed by: Marcus Edwards MD, [facility]([phone]), at 05/24/2022 8:58 AM Gilmer Foster MD IMG DX ORDERABLE S * Differential, Automated (05/24/2022 3:36 AM EDT) Neutrophil % 69.4 % [facility] Neutrophil Absolute 4.63 1.70 - 6.10 x10(3)/[facility] Lymph % 17.4 % [facility] Lymphocytes Abs 1.2 0.9 - 3.2 x10(3)/[facility] Monocyte % 11.1 % [facility] Monocyte Abs 0.7 0.3 - 0.9 x10(3)/[facility] Eos % 1.3 % [facility] Eosinophils Abs 0.1 0.0 - 0.4 x10(3)/[facility] Basophil % 0.7 % [facility] Baso Absolute 0.0 0.0 - 0.1 x10(3)/[facility] Immature Gran % 0.10 % [facility] Comment: Immature granulocytes(IG's)percentage and absolute count will include metamyelocytes, myelocytes, and promyelocytes. Blood smears from CBCs yielding IG's will be scanned manually for concordance. If this scan disagrees with the automated IG or if promyelocytes are noted, a manual differential will be performed. Immature Gran Absolute 0.01 0.00 - 0.04 x10(3)/[facility] Blood 05/24/2022 3:36 AM EDT 05/24/2022 4:02 AM EDT Narrative Resulting Agency Comment Spec In Lab Morales Armas MD HEMATOLOGY ORDERABLE S [facility] [place] [place] [address] * (ABNORMAL) Hemogram (05/24/2022 3:36 AM EDT) White Blood Cell 6.7 4.0 - 9.5 x10(3)/mc L [facility] Red Blood Cell 3.10(L) 4.58 - 5.54 x10(6)/mc L [facility] Hemoglobin 8.1(L) 13.7 - 16.5 g/dL [facility] Hematocrit 25.8(L) 40.5 - 48.5 % [facility] Mean Cell Volume 83.2 82.9 - 93.1 fL [facility] Mean Cell Hemoglobin 26.1(L) 27.5 - 32.1 pg [facility] Mean Cell Hemoglobin Concentration 31.4(L) 32.0 - 35.7 g/dL [facility] Platelet 262 145 - 357 x10(3)/mc L [facility] RDW Standard Deviation 54.4(H) 36.0 - 45.0 fL [facility] RDW coefficient of variation 18.2(H) 11.4 - 13.8 % [facility] Mean Platelet Volume 8.3 7.6 - 12.9 fL [facility] NRBC% auto 0.0 % [facility] NRBC Absolute 0.000 0.000 - 0.000 x10(3)/mc L [facility] Blood 05/24/2022 3:36 AM EDT 05/24/2022 4:02 AM EDT Narrative Resulting Agency Comment Spec In Lab Morales Armas MD HEMATOLOGY ORDERABLE S [facility] [place] [address] * (ABNORMAL) Basic Metabolic Panel (non-fasting) (05/24/2022 [...] In Lab Gilmer Foster MD CHEMISTRY ORDERA [facility] Organization Address City/State/[facility] Co de Phone Number [facility] [place] [address] * XR Chest PA & Lateral (Generic) [...] have questions please contact the health home care coordinator that requested your imaging first. ? Electronically signed by: Philip Church MD, [facility] ([phone]), at 05/23/2022 7:33 AM Narrative 05/23/2022 7:33 [...] patients who have questions please contactthe health home care coordinator that requested your imaging first. Electronically signed by: Philip Church MD, [facility]([phone]), at 05/23/2022 7:33 AM Gilmer Foster MD IMG DX ORDERABLE S * Differential, Automated (05/23/2022 3:52 AM EDT) Neutrophil % 69.8 % [facility] Neutrophil Absolute 4.74 1.70 - 6.10 x10(3)/[facility] Lymph % 18.7 % [facility] Lymphocytes Abs 1.3 0.9 - 3.2 x10(3)/[facility] Monocyte % 10.2 % [facility] Monocyte Abs 0.7 0.3 - 0.9 x10(3)/[facility] Eos % 0.6 % [facility] Eosinophils Abs 0.0 0.0 - 0.4 x10(3)/[facility] Basophil % 0.4 % [facility] Baso Absolute 0.0 0.0 - 0.1 x10(3)/[facility] Immature Gran % 0.30 % [facility] Comment: Immature granulocytes(IG's)percentage and absolute count will include metamyelocytes, myelocytes, and promyelocytes. Blood smears from CBCs yielding IG's will be scanned manually for concordance. If this scan disagrees with the automated IG or if promyelocytes are noted, a manual differential will be performed. Immature Gran Absolute 0.02 0.00 - 0.04 x10(3)/[facility] Blood 05/23/2022 3:52 AM EDT 05/23/2022 4:08 AM EDT Narrative Resulting Agency Comment Spec In Lab Morales Armas MD HEMATOLOGY ORDERABLE S [facility] [place] [address] * (ABNORMAL) Hemogram (05/23/2022 3:52 AM EDT) [...] Platelet Volume 8.3 7.6 - 12.9 fL [facility] NRBC% auto 0.0 % [facility] NRBC Absolute 0.000 0.000 - 0.000 x10(3)/ L [facility] Blood 05/23/2022 3:52 AM EDT 05/23/2022 4:08 AM EDT Narrative Resulting Agency Comment Spec In Lab Morales Armas MD HEMATOLOGY ORDERABLE S [facility] [place] [address] * Basic Metabolic Panel (non-fasting) (05/23/2022 3:52 AM EDT) Glucose 99 65 - 199 mg/dL [facility] Comment:Diabetes: >=200 mg/d L plus symptoms Blood Urea Nitrogen 14 10 - 20 mg/dL [facility] Creatinine 0.94 0.80 - 1.50 mg/dL [facility] Sodium 135 135 - 145 [...] In Lab Gilmer Foster MD CHEMISTRY ORDERA [facility] [place] [address] * Differential, Automated (05/22/2022 3:47 AM EDT) Neutrophil % 72.4 % [facility] Neutrophil Absolute 5.30 1.70 - 6.10 x10(3)/[facility] Lymph % 15.2 % [facility] Lymphocytes Abs 1.1 0.9 - 3.2 x10(3)/[facility] Monocyte % 11.1 % [facility] Monocyte Abs 0.8 0.3 - 0.9 x10(3)/[facility] Eos % 0.5 % [facility] Eosinophils Abs 0.0 0.0 - 0.4 x10(3)/[facility] Basophil % 0.4 % [facility] Baso Absolute 0.0 0.0 - 0.1 x10(3)/[facility] Immature Gran % 0.40 % [facility] Comment: Immature granulocytes(IG's)percentage and absolute count will include metamyelocytes, myelocytes, and promyelocytes. Blood smears from CBCs yielding IG's will be scanned manually for concordance. If this scan disagrees with the automated IG or if promyelocytes are noted, a manual differential will be performed. Immature Gran Absolute 0.03 0.00 - 0.04 x10(3)/[facility] Blood 05/22/2022 3:47 AM EDT 05/22/2022 4:15 AM EDT Narrative Resulting Agency Comment Spec In Lab Morales Armas MD HEMATOLOGY ORDERABLE S [facility] [place] [address] * (ABNORMAL) Hemogram (05/22/2022 3:47 AM EDT) [...] of variation 17.5(H) 11.4 - 13.8 % [facility] Mean Platelet Volume 8.6 7.6 - 12.9 fL [facility] NRBC% auto 0.0 % [facility] NRBC Absolute 0.000 0.000 - 0.000 x10(3)/mc L [facility] Blood 05/22/2022 3:47 AM EDT 05/22/2022 4:15 AM EDT Narrative Resulting Agency Comment Spec In Lab Morales Armas MD HEMATOLOGY ORDERABLE S [facility] [place] [address] * Basic Metabolic Panel (non-fasting) (05/22/2022 3:47 [...] MD CHEMISTRY ORDERA BLES Performing Organization Address City/[facility]/ZIP Co de Phone Number [facility] [place] [address] * EKG 12 Lead (05/21/2022 7:36 AM EDT) Ventricular rate 118 BPM MUSE SYSTEM Atrial Rate 118 BPM MUSE SYSTEM P-R Interval 216 ms MUSE SYSTEM QRS Duration 106 ms MUSE SYSTEM Q-T Interval 324 ms MUSE SYSTEM QTC Calculated (Bezet) 454 ms MUSE SYSTEM Calculated R [place] 82 degrees MUSE SYSTEM Calculated T [place] -102 degrees MUSE SYSTEM INTERPRETATION Sinus tachycardia with 1st degree A-V block Minimal voltage criteria for LVH, may be normal variant ( [place] product ) Nonspecific T wave abnormality Abnormal ECG When compared with ECG of 18-MAY-2022 08:00, (unconfirmed) Sinus rhythm has replaced Atrial flutter Incomplete left bundle block is no longer Present Confirmed by MD Stacy, Kyrie ([id number]) on 05/21/2022 1:03:09 PM MUSE SYSTEM 05/21/2022 7:36 AM EDT 05/21/2022 1:03 PM EDT Gilmer Foster MD ECG ORDERABLES Performing Organization Address City/[facility]/ZIP Co de Phone Number MUSE SYSTEM * Differential, Automated (05/21/2022 4:09 AM EDT) Neutrophil % 72.4 % [facility] Neutrophil Absolute 4.83 1.70 - 6.10 x10(3)/[facility] Lymph % 14.5 % [facility] [facility] Lymphocytes Abs 1.0 0.9 - 3.2 x10(3)/[facility] LABORATORY Monocyte % 12.3 % [facility] Monocyte Abs 0.8 0.3 - 0.9 x10(3)/[facility] Eos % 0.1 % [facility] Eosinophils Abs 0.0 0.0 - 0.4 x10(3)/[facility] Basophil % 0.4 % [facility] Baso Absolute 0.0 0.0 - 0.1 x10(3)/[facility] LABORATORY Immature Gran % 0.30 % [facility] Comment: Immature granulocytes(IG's)percentage and absolute count will include metamyelocytes, myelocytes, and promyelocytes. Blood smears from CBCs yielding IG's will be scanned manually for concordance. If this scan disagrees with the automated IG or if promyelocytes are noted, a manual differential will be performed. Immature Gran Absolute 0.02 0.00 - 0.04 x10(3)/[facility] LABORATORY Blood 05/21/2022 4:09 AM EDT 05/21/2022 5:00 AM EDT Narrative Resulting Agency Comment Spec In Lab Morales Armas MD HEMATOLOGY ORDERABLE S [facility] [place] [address] * (ABNORMAL) Hemogram (05/21/2022 4:09 AM EDT) White Blood Cell 6.7 4.0 - 9.5 x10(3)/mc L [facility] Red Blood Cell 3.01(L) 4.58 - 5.54 x10(6)/ L [facility] Hemoglobin 7.9(L) 13.7 - 16.5 g/dL [facility] Hematocrit 25.6(L) 40.5 - 48.5 % [facility] Mean Cell Volume 85.0 82.9 - 93.1 fL [facility] Mean Cell Hemoglobin 26.2(L) 27.5 - 32.1 pg [facility] Mean Cell Hemoglobin Concentration 30.9(L) 32.0 - 35.7 g/dL [facility] Platelet 226 145 - 357 x10(3)/ L [facility] RDW Standard Deviation 53.6(H) 36.0 - 45.0 fL [facility] RDW coefficient of variation 17.3(H) 11.4 - 13.8 % [facility] Mean Platelet Volume 9.1 7.6 - 12.9 fL [facility] NRBC% auto 0.0 % [facility] NRBC Absolute 0.000 0.000 - 0.000 x10(3)/mc L [facility] Blood 05/21/2022 4:09 AM EDT 05/21/2022 5:00 AM EDT Narrative Resulting Agency Comment Spec In Lab Morales Armas MD HEMATOLOGY ORDERABLE S [facility] [place] [place] [address] * (ABNORMAL) Basic Metabolic Panel (non-fasting) (05/21/2022 4:09 AM EDT) Glucose 84 65 - 199 mg/dL [facility] [...] Lab Gilmer Foster MD CHEMISTRY ORDERA BLES [facility] [place] [place] [address] * Differential, Automated (05/20/2022 4:08 AM EDT) Neutrophil % 74.7 % [facility] Neutrophil Absolute 5.59 1.70 - 6.10 x10(3)/[facility] Lymph % 12.6 % [facility] Lymphocytes Abs 0.9 0.9 - 3.2 x10(3)/[facility] Monocyte % 11.9 % [facility] Monocyte Abs 0.9 0.3 - 0.9 x10(3)/[facility] Eos % 0.0 % [facility] Eosinophils Abs 0.0 0.0 - 0.4 x10(3)/[facility] Basophil % 0.3 % [facility] Baso Absolute 0.0 0.0 - 0.1 x10(3)/[facility] Immature Gran % 0.50 % [facility] Comment: Immature granulocytes(IG's)percentage and absolute count will include metamyelocytes, myelocytes, and promyelocytes. Blood smears from CBCs yielding IG's will be scanned manually for concordance. If this scan disagrees with the automated IG or if promyelocytes are noted, a manual differential will be performed. Immature Gran Absolute 0.04 0.00 - 0.04 x10(3)/[facility] Blood 05/20/2022 4:08 AM EDT 05/20/2022 4:48 AM EDT Narrative Resulting Agency Comment Spec In Lab Morales Armas MD HEMATOLOGY ORDERABLE S [facility] [place] [place] [address] * (ABNORMAL) Hemogram (05/20/2022 4:08 AM EDT) [...] of variation 17.4(H) 11.4 - 13.8 % [facility] Mean Platelet Volume 8.7 7.6 - 12.9 fL [facility] NRBC% auto 0.0 % [facility] NRBC Absolute 0.000 0.000 - 0.000 x10(3)/mc L [facility] Blood 05/20/2022 4:08 AM EDT 05/20/2022 4:48 AM EDT Narrative Resulting Agency Comment Spec In Lab Morales Armas MD HEMATOLOGY ORDERABLE S [facility] [place] [address] * (ABNORMAL) Basic Metabolic Panel (non-fasting) (05/20/2022 [...] Lab Gilmer Foster MD CHEMISTRY ORDERA BLES [facility] [place] [address] * XR Chest PA & Lateral (Generic) [...] have questions please contact the health home care coordinator that requested your imaging first. ? Electronically signed by: Savanah Suazo MD, [facility] ([phone]), at 05/19/2022 11:16 AM Narrative 05/19/2022 11:16 [...] patients who have questions please contactthe health home care coordinator that requested your imaging first. Gilmer Foster MD IMG DX ORDERABLE S * (ABNORMAL) Differential, Automated (05/19/2022 3:31 AM EST) Neutrophil % 80.9 % [facility] Neutrophil Absolute 8.95(H) 1.70 - 6.10 x10(3)/mc L [facility] Lymph % 9.3 % [facility] Lymphocytes Abs 1.0 0.9 - 3.2 x10(3)/mc L [facility] Monocyte % 9.2 % [facility] Monocyte Abs 1.0(H) 0.3 - 0.9 x10(3)/mc L [facility] Eos % 0.0 % [facility] Eosinophils Abs 0.0 0.0 - 0.4 x10(3)/mc L [facility] Basophil % 0.1 % [facility] Baso Absolute 0.0 0.0 - 0.1 [...] MD HEMATOLOGY ORDERABLE S [facility] [place] [address] * (ABNORMAL) Hemogram (05/19/2022 3:31 AM EST) White Blood Cell 11.1(H) 4.0 - 9.5 x10(3)/mc L [facility] Red Blood Cell 3.23(L) 4.58 - 5.54 x10(6)/mc L [facility] Hemoglobin 8.5(L) 13.7 [...] [facility] NRBC% auto 0.0 % [facility] NRBC Absolute 0.000 0.000 - 0.000 x10(3)/ L [facility] Blood 05/19/2022 3:31 AM EST 05/19/2022 3:56 AM EST Narrative Resulting Agency Comment Spec In Lab Morales Armas MD HEMATOLOGY ORDERABLE S Performing Organization Address City/State/[facility] Co de Phone Number [facility] [place] [address] * Basic Metabolic Panel (non-fasting) (05/19/2022 3:31 [...] In Lab Gilmer Foster MD CHEMISTRY ORDERA [facility] [place] [place] [address] * XR Chest One View (05/18/2022 4:01 [...] have questions please contact the health home care coordinator that requested your imaging first. ? Electronically signed by: Maryann Magallanes MD, [facility] ([phone]), at 05/18/2022 4:02 PM Narrative 05/18/2022 4:02 [...] patients who have questions please contactthe health home care coordinator that requested your imaging first. Electronically signed by: Maryann Magallanes MD, [facility]([phone]), at 05/18/2022 4:02 PM Gilmer Foster MD IMG DX ORDERABLE S * (ABNORMAL) Differential, Automated (05/18/2022 2:18 PM EST) [facility] Neutrophil % 85.2 % [facility] Neutrophil Absolute 9.74(H) 1.70 - 6.10 x10(3)/mc L [facility] Lymph % 7.3 % [facility] Lymphocytes Abs 0.8(L) 0.9 - 3.2 x10(3)/mc L [facility] Monocyte % 6.8 % [facility] Monocyte Abs 0.8 0.3 - 0.9 x10(3)/[facility] LABORATORY Eos % 0.2 % [facility] Eosinophils Abs 0.0 0.0 - 0.4 x10(3)/ L [facility] Basophil % 0.2 % [facility] Baso Absolute 0.0 0.0 - 0.1 x10(3)/[facility] LABORATORY Immature Gran % 0.30 % [facility] Comment: Immature granulocytes(IG's)percentage and absolute count will include metamyelocytes, myelocytes, and promyelocytes. Blood smears from CBCs yielding IG's will be scanned manually for concordance. If this scan disagrees with the automated IG or if promyelocytes are noted, a manual differential will be performed. Immature Gran Absolute 0.04 0.00 - 0.04 x10(3)/ L [facility] Blood 05/18/2022 2:18 PM EST 05/18/2022 2:30 PM EST Narrative Resulting Agency Comment Spec In Lab Morales Armas MD HEMATOLOGY ORDERABLE S Performing Organization Address City/State/[facility] Co de Phone Number [facility] [place] [address] * (ABNORMAL) Hemogram (05/18/2022 2:18 PM EST) White Blood Cell 11.4(H) 4.0 - 9.5 x10(3)/ L [facility] Red Blood Cell 3.19(L) 4.58 - 5.54 x10(6)/mc L [facility] Hemoglobin 8.4(L) 13.7 - 16.5 g/dL [facility] Hematocrit 26.5(L) 40.5 - 48.5 % [facility] Mean Cell Volume 83.1 82.9 [...] Platelet Volume 8.4 7.6 - 12.9 fL [facility] NRBC% auto 0.0 % [facility] NRBC Absolute 0.000 0.000 - 0.000 x10(3)/mc L [facility] Blood 05/18/2022 2:18 PM EST 05/18/2022 2:30 PM EST Narrative Resulting Agency Comment Spec In Lab Morales Armas MD HEMATOLOGY ORDERABLE S [facility] [place] [address] * (ABNORMAL) Basic Metabolic Panel (non-fasting) (05/18/2022 [...] MD CHEMISTRY ORDERA BLES Performing Organization Address [facility] Co de Phone Number [facility] [place] [address] * Type and Screen Validity (05/18/2022 1:37 PM EST) T&S only valid at [facility] Comment:This Type and Screen result is only valid at the [facility] Blood 05/18/2022 1:37 PM EST 05/18/2022 1:48 PM EST Narrative Resulting Agency Comment Spec In Lab Gilmer Foster MD BLOOD BANK LAB O RDERABLES Performing Organization Address [facility]/ZIP Co de Phone Number [facility] [place] [address] * ABORH Recheck Status (05/18/2022 1:37 PM EST) ABORH Recheck Order Order Placed [facility] ABORH Type Recheck Complete [facility] Blood 05/18/2022 1:37 PM EST 05/18/2022 1:48 PM EST Narrative Resulting Agency Comment Spec In Lab Gilmer Foster MD BLOOD BANK LAB O RDERABLES Performing Organization Address City/[facility]/ZIP Co de Phone Number [facility] [place] [address] * Antibody screen (05/18/2022 1:37 PM EST) Pathologist [facility] Ab Screen Interp Negative [facility] Expires at [id number] on: 05/21/2022 [facility] Blood 05/18/2022 1:37 PM EST 05/18/2022 1:48 PM EST Narrative Resulting Agency Comment Spec In Lab Gilmer Foster MD BLOOD BANK LAB O RDERABLES Performing Organization Address City/[facility]/ZIP Co de Phone Number [facility] [place] [address] * ABO/Rh Typing (05/18/2022 1:37 PM EST) Pathologist [facility] ABORH Type A Pos [facility] Blood 05/18/2022 1:37 PM EST 05/18/2022 1:48 PM EST Narrative Resulting Agency Comment Spec In Lab Gilmer Foster MD BLOOD BANK LAB O RDERABLES Performing Organization Address [facility] Co de Phone Number [facility] [place] [address] * (ABNORMAL) BLOOD GAS 2 ARTERIAL (05/18/2022 [...] HOSPITAL LABOR[facility]ORY Carboxyhemoglob in, Arterial 1.2 % [facility] Comment: Nonsmokers: 0.5-1.5% COHB Smokers: Variable, but usually less than 10% Toxic: 20-30% COHB Lethal: Greater than 60% COHB Methemoglobin, Arterial 0.3 <=1.5 % [facility] Na Whole Blood 133(L) 135 - 145 mmol/L [facility] K Whole Blood 4.2 3.5 - 5.0 mmol/L [facility] Comment: Please note: Patients with WBC >100,000 may have falsely elevated Potassium levels. Contact the Clinical Chemistry Laboratory if there are any questions. ICa Whole Blood 1.16 1.15 - 1.33 mmol/L [facility] Comment: Note: ??Total bilirubin higher than 20 mg/dL may lead to falsely low ionized calcium. CL Whole Blood 104 98 - 107 mmol/L [facility] Gluc Whole Bld 130 65 - 199 mg/dL [facility] Comment:Diabetes: >=200 mg/d L plus symptoms. Lactate WB 1.0 0.5 - 2.2 mmol/L [facility] FIO2 Art 50 % [facility] Flow Art 1.0 LPM [facility] PF Ratio Art 580 [facility] Blood 05/18/2022 12:4 1 PM EST 05/18/2022 12:41 PM EST Gilmer Foster MD POINT OF CARE TE ST ORDERABLES Performing Organization Address City/[facility]/ZIP Co de Phone Number [facility] [place] [address] * Specimen to Pathology (05/18/2022 11:21 AM EST) AP Specimen 05/18/2022 11:2 1 AM EST 05/18/2022 11:21 AM EST Narrative [facility] - 05/18/2022 11:21 AM EST Specimen requisition ordered. ??Separate Pathology report to follow Gilmer Foster MD PATHOLOGY/CYTOLO GY ORDERABLES [facility] [place] [address] * Specimen to Pathology (05/18/2022 10:56 AM EST) AP Specimen 05/18/2022 10:5 6 AM EST 05/18/2022 10:56 AM EST Narrative [facility] - 05/18/2022 10:56 AM EST Specimen requisition ordered. ??Separate Pathology report to follow Gilmer Foster MD PATHOLOGY/[place] [address] * Specimen to Pathology (05/18/2022 10:37 AM EST) AP Specimen 05/18/2022 10:3 7 AM EST 05/18/2022 10:37 AM EST Narrative [facility] - 05/18/2022 10:37 AM EST Specimen requisition ordered. ??Separate Pathology report to follow Gilmer Foster MD PATHOLOGY/CYTOLO GY ORDERABLES Performing Organization Address [facility] [place] [address] * Specimen to Pathology (05/18/2022 10:36 AM EST) AP Specimen 05/18/2022 10:3 6 AM EST 05/18/2022 10:36 AM EST Narrative [facility] - 05/18/2022 10:36 AM EST Specimen requisition ordered. ??Separate Pathology report to follow Gilmer Foster MD PATHOLOGY/CYTOLO GY ORDERABLES Performing Organization Address [facility] Co de Phone Number [facility] [place] [address] * Specimen to Pathology (05/18/2022 10:36 AM EST) AP Specimen 05/18/2022 10:3 6 AM EST 05/18/2022 10:36 AM EST Narrative [facility] - 05/18/2022 10:36 AM EST Specimen requisition ordered. ??Separate Pathology report to follow Gilmer Foster MD PATHOLOGY/CYTOLO GY ORDERABLES Performing Organization Address City/[facility] Co de Phone Number [facility] [place] [address] * Anaerobic Culture (05/18/2022 10:35 AM EST) Anaerobic Culture No anaerobic organisms isolated [facility] Lung 05/18/2022 10:3 5 AM EST 05/18/2022 2:17 PM EST Comment:Left pleural grumous Narrative Resulting Agency Comment Spec In Lab Gilmer Foster MD MICROBIOLOGY - G ENERAL ORDERABLES Performing Organization Address [facility] Co de Phone Number [facility] [place] [address] * Tissue culture (05/18/2022 10:35 AM EST) Tissue Culture No growth [facility] Gram Stain Few Neutrophils seen No microorganisms seen. [facility] Lung 05/18/2022 10:3 5 AM EST 05/18/2022 2:17 PM EST Comment:Left pleural grumous Narrative Resulting Agency Comment Spec In Lab Gilmer Foster MD MICROBIOLOGY - G ENERAL ORDERABLES Performing Organization Address [facility] de Phone Number [facility] [place] [address] * Surgical Pathology Report (05/18/2022 10:19 AM EST) Final Diagnosis [id number] ? Location: [id number]; 0326; B The signing [...] Soriano Verified: ??06/04/2022 14:52 ??Pathologist Performed at: ??[facility] [place], [place] [address] Liner Machine Operator Helper: Maria Ines Marrufo MD, FCAP, ??CLIA Certificate: [id number] SPECIMEN(S) SUBMITTED A - Left pleural rind, [...] tissue is submitted for frozen section: A1. Deep Submergence Vehicle Operator sections in 3 cassettes as follows: ?A1: ??Frozen section remnant ?A2-A3: ??Deep Submergence Vehicle Operator sections B - Labeled/Fixative: Left pleural grumous, fresh. Quantity/Size: Fragments, 7.0 x 5.0 x 1.0 cm in aggregate. Tissue Description: Multiple soft rubbery fragments of white tissue. Sections/Processin g: Deep Submergence Vehicle Operator sections in 2 cassettes labeled B1-B2. C - Labeled/Fixative: Visceral pleural rind. Frozen, fresh for frozen section. Quantity/Size: Single, 2.7 x 1.9 x 0.2 cm. Tissue Description: Serrato-white membranous soft tissue. Sections/Processin g: The following tissue is submitted for frozen section: C1. Deep Submergence Vehicle Operator sections in 2 cassettes as follows: ?C1: ??Frozen section remnant ?C2: ??Deep Submergence Vehicle Operator sections D - Labeled/Fixative: Fragments of rib, fresh. Quantity/Size: Fragments, 9.0 x 9.0 x 2.0 cm in aggregate. Tissue Description: Multiple fragments of rib and surrounding connective tissue. Sections/Processin g: Blocks submitted for decalcification: D1. Deep Submergence Vehicle Operator sections in 1 cassette labeled D1. E - Labeled/Fixative: Left parietal pleural rind, fresh. Quantity/Size: Fragments, 12.5 x 12.5 x 2.0 cm in aggregate. Tissue Description: Multiple fragments of firm rubbery serrato-white tissue with surrounding adipose tissue. Sections/Processin g: Deep Submergence Vehicle Operator sections in 2 cassettes labeled E1-E2. F - Labeled/Fixative: Left visceral pleural rind, fresh. Quantity/Size: Fragments, 9.0 x 5.0 x 2.0 cm in aggregate. Tissue Description: Fragments of firm rubbery serrato-white tissue. Sections/Processin g: Deep Submergence Vehicle Operator sections in 2 cassettes labeled F1-F2. ??jnk ?Frozen Section FROZEN SECTION DIAGNOSIS CFS - VISCERAL PLEURAL RIND. FROZEN, excision ?for frozen section Inflamed ??pleura, no evidence of malignancy (warehouse representative sample) 05/18/22 11:27 Electronically signed by: ?Malia Lacy MD Verified: ??05/18/2022 11:29 ??Pathologist Performed at: ??[facility] [place], [place] [id number] Liner Machine Operator Helper: Maria Ines Marrufo MD, AP, ??CLIA Certificate: [id number] This intraoperative consultation should be interpreted as [...] MD Verified: ??05/18/2022 11:25 ??Pathologist Performed at: ??[facility] [place], [place] [address] Liner Machine Operator Helper: Maria Ines Marrufo MD, FCAP, ??CLIA Certificate: [id number] This intraoperative consultation should be interpreted as a preliminary diagnosis pending review of the entire specimen and special studies, if any. A final Surgical Pathology report will follow this preliminary Frozen Section report(s). 06/04/2022 2:52 PM EDT [facility] Frozen Specimen 05/18/2022 1 0:19 [...] AM EST 05/18/2022 10:19 AM EST Gilmer Foster MD PATHOLOGY/CYTOLO GY ORDERABLES Performing Organization Address City/State/[facility] Co de Phone Number [facility] [place] [place] [address] [facility] [place] [address] * Specimen to Pathology (05/18/2022 10:19 AM EST) AP Specimen 05/18/2022 10:1 9 AM EST 05/18/2022 10:19 AM EST Narrative [facility] - 05/18/2022 10:19 AM EST Specimen requisition ordered. ??Separate Pathology report to follow Gilmer Foster MD PATHOLOGY/CYTOLO GY ORDERABLES [facility] [place] [place] [address] * (ABNORMAL) BLOOD GAS 2 ARTERIAL (05/18/2022 [...] % [facility] Carboxyhemoglob in, Arterial 1.0 % [facility] Comment: Nonsmokers: 0.5-1.5% COHB Smokers: Variable, but usually less than 10% Toxic: 20-30% COHB Lethal: Greater than 60% COHB Methemoglobin, Arterial 0.3 <=1.5 % [facility] Na Whole Blood 133(L) 135 - 145 mmol/L [facility] K Whole Blood 3.8 3.5 - 5.0 mmol/L [facility] [...] mmol/L [facility] Gluc Whole Bld 107 65 - 199 mg/dL [facility] Comment:Diabetes: >=200 mg/d L plus symptoms. Lactate WB 1.5 0.5 - 2.2 mmol/L [facility] Blood 05/18/2022 10:1 7 AM EST 05/18/2022 10:17 AM EST Gilmer Foster MD POINT OF CARE TE ST ORDERABLES [facility] [place] [address] * XR Fluoro No Rad <1Hr - [...] (Bezet) 492 ms MUSE SYSTEM Calculated P Jasper 106 degrees MUSE SYSTEM Calculated R Jasper 71 degrees MUSE SYSTEM Calculated T Jasper -169 degrees MUSE SYSTEM INTERPRETATION Atrial flutter Non-specific intra-ventricular conduction delay Minimal voltage criteria for LVH, may be normal variant ( [place] product ) Nonspecific ST and T wave abnormality Abnormal ECG When compared with ECG of 21-FEB-2022 06:21, No significant change was found I personally reviewed the tracing and edited the fellows interpretation Confirmed by fellow Rudi Guzmán ([id number]) on 05/21/2022 4:25:34 AM Confirmed by MD RUST SALVATORE ([id number]) on 05/21/2022 10:56:00 AM MUSE SYSTEM 05/18/2022 8:00 AM EST 05/21/2022 10:56 AM EDT Gilmer Foster MD ECG ORDERABLES MUSE SYSTEM * POCT Glucose (05/18/2022 7:29 AM EST) Glucose, POC 93 65 - 199 mg/dL [facility] Comment: Supplemental ranges: <140 mg/dL before meals <180 mg/dL all other times of the day Blood 05/18/2022 7:29 AM EST 05/18/2022 7:29 AM EST Gilmer Foster MD POINT OF [place] [address] documented in this encounter Visit Diagnoses Diagnosis [...] 20 mg, Intravenous, ONCE, 1 dose, On Tu05/22/22 at 0815 Given 05/22/2022 7:50 AM EDT 20 mg heparin (porcine) (5,000 units/1 mL) subcutaneous injection 5,000 Units 5,000 Units, Subcutaneous, TRANSACTION PROCESSOR TO O.R., 1 dose, On Sat05/18/22 at [...] Bag 05/19/2022 7:18 AM EST 250 mLs New Bag 05/18/2022 5:00 PM EST 6 mL/hr [...] Bag 05/23/2022 9:29 PM EDT 250 mLs New Bag 05/20/2022 11:33 PM EDT 250 mLs Rate/Dose [...] 25 mg, Oral, DAILY, First dose on 05/19/22 at 0900, Until Discontinued, Hold for systolic [...] Inhalation, DAILY, First dose on Sat05/18/22 at 1999, Until Discontinued, Must be primed prior to [...] HOURS SCHEDULED, First dose on Sat05/18/22 at 1999, Until Discontinued, Maximum dose of acetaminophen is [...] 6 HOURS, First dose on Sat05/18/22 at 1999, Until Discontinued, Routine 0200 (Not Given - [...] on 05/19/22 at 0900, Until Discontinued, Routine 0938 (Given - Provider: Maribell Farias RN) 1014 (Given - Provider: Maribell Fraias RN) 0901 (Given - Provider: Cori Motta RN) buPROPion (Wellbutrin) tablet 150 mg 150 mg, Oral, DAILY, First dose on 05/19/22 at 0900, Until Discontinued, Routine 0938 (Given [...] Routine 1309 (Given - Provider: Maribell Farias RN)213 (Given - Provider: Raquel Hoffmann) hydrOXYchloroQUINE (Plaquenil) [...] RN)2144 (Given - Provider: Sandro Newton RN) 101 (Given - Provider: Maribell Farias RN)2133 (Given - Provider: Raquel Hoffmann) 0908 (Given - Provider: Cori Motta, CHRISTINA) tamsulosin (Flomax) capsule 0.4 mg 0.4 mg, Oral, DAILY, First dose on Sat05/19/22 at 0900, Until Discontinued, DO NOT CRUSH OR OPEN, Routine 09 (Given - Provider: Maribell Farias RN) 101 (Given - Provider: Maribell Farias RN) 0902 (Given - Provider: Cori Motta, CHRISTINA) tiotropium bromide (Spiriva Respimat) 2.5 mcg/actuation inhaler 2 puff 2 puff, Inhalation, DAILY, First dose on Sat05/18/22 at 2000, Until Discontinued, Must be primed prior to first administration, Routine 0938 (Given - Provider: Maribell Farias RN) 101 (Given - Provider: Maribell Farias RN) 0907 (Given - Provider: Cori Motta RN) Continuous Medication Order 05/22/2022 05/23/2022 [...] a programmed frequency , Recovery (Recovery-Hospital Unit) 2129 (New Bag - Provider: Sandro Newton RN) [...] Starting on Stephanie 05/24/22 at 0657, Until Sat05/24/22 at 0847, Recovery (Recovery-Hospital Unit) documented in this encounter Care Teams Automobile Or Truck Rental Dispatcher Relationship Specialty Start Date End Date Tami Olivia [address] [place] [address] PCP - General Family Medicine 12/30/20 documented as of this encounter
--- OUTSIDE RECORDS SUMMARY | 2023-12-11 22:58 | XMS_ITS | Encounter Summary ---
Author Organization [facility] [place] [address] Care Team Providers Care Drafting Layout Man Name Role Phone Tami Olivia Primary Care Provider [phone] Reason for Visit * Reason Onset Date Comments Pre Procedure Call 11/06/2022 Encounter Details Date Type Department Care Team (Late st Contact Info) Description 11/06/2022 Telephone Cardiology at [address] [phone] Jacqueline Henry RN Pre Procedure Call Social [...] to procedure. NPO after midnight. Understands that driver starting gate is needed to transport them upon discharge. documented in this encounter Plan of Treatment Upcoming Encounters Date Type Department Care Team (Late st Contact Info) Description 12/12/2023 Hospital Encounter Heart and Vascular Unit Level 3 [place] [address] Tiera Goldsmith MD [facility] [place] [address] Scheduled Procedures Name Priority Associated Diagnoses Date/Ti me ELECTROPHYSIOLOGY PROCEDURE Persistent atrial fibrillation CARDIOVERSION-ELECTIVE (WRVU 2) persistent atrial fibrillation TRANSESOPHAGEAL ECHOCARDIOGR AM (WRVU 2.3) persistent atrial fibrillation documented as of this encounter Visit Diagnoses Not on filedocumented in this encounter Care Teams Drafting Layout Man Relationship Specialty Start Date End Date Tami Olivia [address] [place] [address] PCP - General Family Medicine 12/30/20 documented as of this encounter
--- OUTSIDE RECORDS SUMMARY | 2023-12-11 22:58 | XMS_ITS | Encounter Summary ---
Author Organization [facility] Address [facility] [place] [address] Care Team Providers Care Machine Helper Name Role Phone Tami Olivia Primary Care Provider [phone] Reason for Visit * Auth/Cert (Routine) Specialty Diagnoses / Procedures Referred By Bert t Referred To Contact Diagnoses Atrial flutter atrial flutter Procedures PRO CARDIOVERSION ELECTIVE ARRHYTHMIA EXTERNAL CARDIOVERSION-ELECTIVE (WRVU 2) Sekou Canales MD [facility] [place] [address] [facility] Referral ID Status Reason Start Date Expiration Date Visits Re quested Visits Authorized [id number] 1 1 Encounter Details Date Type Department Care Team (Late st Contact Info) Description 11/08/2022 11:00 AM EDT Office Visit Cardiology at [address] [place] [address] Elizabet Otero PA [facility] [place] [address] Encounter for monitoring amiodarone therapy; Longstanding persistent atrial fibrillation Social History Tobacco Use Types Packs/Day Years Used Date Smoking Tobacco: Former Cigarettes Smokeless Tobacco: Never Tobacco Cessation:Counseling Given: Not Answered Comments:1 ppd for the past year Alcohol Use Standard Drinks/Week Comments Not Currently 0 (1 standard drink = 0.6 oz pur e alcohol) [facility] Inpatient Questions Answer Date Recorded Does Anyone [...] Mr. Marquez met with Dr. Canales in [facility] on 10/10/2022 for evaluation and management of atrial fibrillation and atrial flutter, noting that these are associated with CHF sx and reduced LVEF. Therefore, amiodarone was restarted and plans were made to pursue DCCV. Live independently in [place], [place]. Enjoys riding [employer]. Patient Active Problem List Diagnosis Fibrothorax Atrial [...] 4. Follow up with Dr. Canales in [facility] I appreciate the opportunity to be involved with Mr. Marquez's care. Please do not hesitate to contactEP with any further questions (pager [phone]). STEVE Manley Pager: [phone] documented in this encounter Plan of Treatment Upcoming Encounters Date Type Department Care Team (Late Contact Info) Description 12/12/2023 Hospital Encounter Heart and Vascular Unit Level 3 [place] [address] Tiera Goldsmith MD [facility] [place] [address] Scheduled Procedures Name Priority Associated Diagnoses Date/Ti [...] EKG 12 Lead (11/08/2022 11:19 AM EDT) Ventricular rate 89 BPM MUSE SYSTEM Atrial Rate 227 BPM MUSE SYSTEM QRS Duration 106 ms MUSE SYSTEM Q-T Interval 400 ms MUSE SYSTEM QTC Calculated (Bezet) 486 ms MUSE SYSTEM Calculated R [place] 101 degrees MUSE SYSTEM Calculated T [place] 60 degrees MUSE SYSTEM INTERPRETATION Atrial flutter with variable A-V block Rightward axis Minimal voltage criteria for LVH, may be normal variant ( [place] product ) Prolonged QT Abnormal ECG When compared with ECG of 21-MAY-2022 07:36, Atrial flutter has replaced Sinus rhythm Inverted T waves have replaced nonspecific T wave abnormality in Inferior leads Confirmed by MD Bob, Sloan ([id number]) on 11/10/2022 3:58:39 PM MUSE SYSTEM 11/08/2022 11:1 9 AM EDT 11/10/2022 3:58 PM EDT Sekou Canales MD ECG ORDERABLES MUSE SYSTEM * TSH Stanton (11/08/2022 9:17 AM EDT) Thyroid Stimulating Hormone 3.91 0.27 - 4.20 mcIU/mL [facility] Comment: Reference Interval (mcIU/mL): Females: ??First Trimester: 0.23-3.88 ??Second Trimester: 0.22-3.90 ??Third Trimester: 0.44-4.66 Blood 11/08/2022 9:17 AM EDT 11/08/2022 9:24 AM EDT Narrative Resulting Agency Comment Spec In Lab Sekou Canales MD CHEMISTRY ORDERABLES Performing Organization Address [facility] Co de Phone Number [facility] [place] [address] * Magnesium (11/08/2022 9:17 AM EDT) Magnesium 0.90 0.69 - 1.07 mmol/L [facility] Blood 11/08/2022 9:17 AM EDT 11/08/2022 9:24 AM EDT Narrative Resulting Agency Comment Spec In Lab Sekou Canales MD CHEMISTRY ORDERABLES Performing Organization Address [facility] de Phone Number [facility] [place] [address] * (ABNORMAL) Comprehensive metabolic panel (non-fasting) (11/08/2022 9:17 AM EDT) Glucose 81 65 - 199 mg/dL [facility] Comment:Diabetes: >=200 mg/d L plus symptoms Blood Urea Nitrogen 25(H) 10 - 20 mg/dL [facility] Creatinine 1.58(H) 0.80 - 1.50 mg/dL [facility] Sodium 138 135 - 145 mmol/L [facility] Potassium 4.5 3.5 - 5.0 mmol/L [facility] Comment: Please note: ??Patients with WBC >100,000 may have falsely elevated Potassium levels. ??For accurate Potassium quantification in these patients send serum separator tube (gold top) for subsequent determinations. ??Contact the Clinical Chemistry Laboratory if there are any questions. Chloride 101 98 - 107 mmol/L [facility] Carbon Dioxide 25 22 - 31 mmol/L [facility] Anion Gap 12 5 - 15 mmol/L [facility] Calcium 9.6 8.5 - 10.5 mg/dL [facility] Protein, Total 7.5 6.1 - 8.0 g/dL [facility] Albumin 4.2 3.2 - 5.2 g/dL [facility] Aspartate Aminotransferase 33 0 - 39 unit/L [facility] Alanine Aminotransferase 32 0 - 55 unit/L [facility] Alkaline Phosphatase 104 40 - 130 unit/L [facility] Bilirubin, Total 0.6 0.2 - 1.3 mg/dL [facility] Est Glomerular Filtration Rate 46(L) >=60 mL/min/1. 73 m?? [facility] Comment: This patient's estimated GFR was [...] In Lab Sekou Canales MD CHEMISTRY ORDERABLES [facility] [place] [address] documented in this encounter Visit Diagnoses Diagnosis Encounter for monitoring amiodarone therapy Encounter for therapeutic drug monitoring Longstanding persistent atrial fibrillation documented in this encounter Care Teams Machine Helper Relationship Specialty Start Date End Date Tami Olivia [address] [place] [address] PCP - General Family Medicine 12/30/20 documented as of this encounter
--- OUTSIDE RECORDS SUMMARY | 2023-12-11 22:58 | XMS_ITS | Encounter Summary ---
Author Organization [facility] Address [facility] [place] [address] Care Team Providers Care County Court Judge Name Role Phone Tami Olivia Primary Care Provider [phone] Encounter Details Date Type Department Care Team [...] Vascular Unit Level 3 [place] [address] Tiera Goldsmith MD [facility] [place] [address] Scheduled Procedures Name Priority Associated Diagnoses Date/Ti me ELECTROPHYSIOLOGY PROCEDURE Persistent atrial fibrillation CARDIOVERSION-ELECTIVE (WRVU 2) persistent atrial fibrillation TRANSESOPHAGEAL ECHOCARDIOGR AM (WRVU 2.3) persistent atrial fibrillation documented as of this encounter Visit Diagnoses Not on filedocumented in this encounter Care Teams County Court Judge Relationship Specialty Start Date End Date Tami Olivia [address] [place] [address] PCP - General Family Medicine 12/30/20 documented as of this encounter
--- OUTSIDE RECORDS SUMMARY | 2023-12-11 22:58 | XMS_ITS | Encounter Summary ---
Author Organization [facility] Address [facility] [address] [place] [id number] Care Team Providers Care Warehouse Puller Name Role Phone Tami Olivia Primary Care Provider [phone] Reason for Visit * Auth/Cert (Routine) Specialty Diagnoses / Procedures Referred By Bert t Referred To Contact Diagnoses Atrial flutter atrial flutter Procedures PRO CARDIOVERSION ELECTIVE ARRHYTHMIA EXTERNAL CARDIOVERSION-ELECTIVE (WRVU 2) Sekou Canales MD [facility] [place] [address] [facility] Referral ID Status Reason Start Date Expiration Date Visits Re quested Visits Authorized [id number] 1 1 Encounter Details Date Type Department Care Team (Late st Contact Info) Description 11/08/2022 12:30 PM EDT - 11/08/2022 1:00 PM EDT Surgery [place] [address] Sekou Canales MD [facility] [place] [address] CARDIOVERSION-ELECTIVE (WRVU 2) Social History Tobacco Use Types Packs/Day Years Used Date Smoking Tobacco: Former Cigarettes Smokeless Tobacco: Never Comments:1 ppd for the past year Alcohol Use Standard Drinks/Week Comments Not Currently 0 (1 standard drink = 0.6 oz pur e alcohol) [facility] Inpatient Questions Answer Date Recorded Does [...] the adhesive pads were placed, call the gun repair clerk inclusion special education teacher at . We will schedule a follow-up appointment with the gun repair clerk here, or you will be scheduled to [...] 1:02 PM EDT 1255 Pt arrived to [facility] recovery via stretcher S/P cardio version. VSS [...] Vascular Unit Level 3 [place] [address] Tiera Goldsmith MD [facility] [place] [address] Scheduled Orders Name Type Priority Associated Diagnoses [...] 6 PM EDT Cardioversion Elective Arrhythmia External ([id number]) 11/08/2022 12:38 PM EDT atrial flutter documented in this encounter Results * EKG 12 Lead (11/08/2022 1:18 PM EDT) Ventricular rate 47 BPM MUSE SYSTEM Atrial Rate 47 BPM MUSE SYSTEM P-R Interval 210 ms MUSE SYSTEM QRS Duration 104 ms MUSE SYSTEM Q-T Interval 476 ms MUSE SYSTEM QTC Calculated (Bezet) 421 ms MUSE SYSTEM Calculated P [place] 71 degrees MUSE SYSTEM Calculated R [place] 91 degrees MUSE SYSTEM Calculated T [place] 59 degrees MUSE SYSTEM INTERPRETATION Sinus bradycardia with 1st degree A-V block with Premature atrial complexes Rightward axis Borderline ECG When compared with ECG of 08-NOV-2022 11:19, Sinus rhythm has replaced Atrial flutter Vent. rate has decreased BY ??42 BPM QT has shortened Confirmed by MD Bob, Sloan ([id number]) on 11/10/2022 3:59:25 PM MUSE SYSTEM 11/08/2022 [...] CRNA) documented in this encounter Care Teams Warehouse Puller Relationship Specialty Start Date End Date Tami Olivia [address] [place] [address] PCP - General Family Medicine 12/30/20 documented as of this encounter
--- OUTSIDE RECORDS SUMMARY | 2023-12-11 22:58 | XMS_ITS | Encounter Summary ---
Author Organization [facility] Address [facility] [place] [address] Care Team Providers Care Machine Stapler Name Role Phone Tami Olivia Primary Care Provider [phone] Reason for Visit * Reason Onset Date Comments Other 05/28/2022 Encounter Details Date Type Department Care Team (Late st Contact Info) Description 05/28/2022 Telephone Thoracic Surgery at [facility] [place] [address] Megan Reza, RN Other Social History Tobacco [...] Vascular Unit Level 3 [place] [address] Tiera Goldsmith MD [facility] [place] [address] Scheduled Procedures Name Priority Associated Diagnoses Date/Ti me ELECTROPHYSIOLOGY PROCEDURE Persistent atrial fibrillation CARDIOVERSION-ELECTIVE (WRVU 2) persistent atrial fibrillation TRANSESOPHAGEAL ECHOCARDIOGR AM (WRVU 2.3) persistent atrial fibrillation documented as of this encounter Visit Diagnoses Not on filedocumented in this encounter Care Teams Machine Stapler Relationship Specialty Start Date End Date Tami Olivia [address] [place] [address] PCP - General Family Medicine 12/30/20 documented as of this encounter
--- OUTSIDE RECORDS SUMMARY | 2023-12-11 22:58 | XMS_ITS | Encounter Summary ---
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 Status post lobectomy of lung Pleural effusion Procedures CT Chest w Contrast Gilmer Gutiérrez MD [facility] [place] [address] [facility] [place] [address] Referral ID Status Reason Start Date Expiration Date Visits Requested Visits Authorized [id number] New Request Specialty Service Requested 06/12/2022 12/12/2023 1 1 Encounter Details Date Type Department Care Team (Late st Contact Info) Description 06/11/2022 3:45 PM EDT Office Visit [place] [address] Gilmer Gutiérrez MD [facility] [place] [address] Primary squamous cell carcinoma of [...] Vascular Unit Level 3 [place] [address] Tiera Goldsmith MD [facility] [place] [address] Scheduled Orders Name Type Priority Associated Diagnoses [...] effusion documented in this encounter Care Teams Warehouse Technician Relationship Specialty Start Date End Date Tami Olivia [address] [place] [address] PCP - General Family Medicine 12/30/20 documented as of this encounter
--- OUTSIDE RECORDS SUMMARY | 2023-12-11 22:58 | XMS_ITS | Encounter Summary ---
Author Organization [facility] Address [facility] [place] [address] Care Team Providers Care Assembler Crimper Name Role Phone Tami Olivia Primary Care Provider [phone] Encounter Details Date Type Department Care Team (Latest Contact Info) Description 06/11/2022 2:15 PM EDT - 06/11/2022 11:59 PM EDT Hospital Encounter XRay at [address] [place] [address] Gilmer Gutiérrez MD [facility] [place] [address] Status post lung surgery Discharge Disposition: Home [...] Vascular Unit Level 3 [place] [address] Tiera Goldsmith MD [facility] [place] [address] Scheduled Procedures Name Priority Associated Diagnoses Date/Ti [...] who have questions please contact the health memory care program resident that requested your imaging first. ? Electronically signed by: Savanah Suazo MD, [facility] ([phone]), at 06/11/2022 4:12 PM Narrative 06/11/2022 4:12 [...] patients who have questions please contactthe health memory care program resident that requested your imaging first. Electronically signed by: Savanah Suazo MD, [facility] ([phone]), at 06/11/2022 4:12 PM Gilmer Gutiérrez MD IMG DX ORDERABLE S documented in this encounter Visit Diagnoses Diagnosis Status post lung surgery Other postprocedural status documented in this encounter Care Teams Assembler Crimper Relationship Specialty Start Date End Date Tami Olivia [address] [place] [address] PCP - General Family Medicine 12/30/20 documented as of this encounter
--- OUTSIDE RECORDS SUMMARY | 2023-12-11 22:58 | XMS_ITS | Encounter Summary ---
Author Organization [facility] Address [facility] [place] [address] Care Team Providers Care Overcoil Stepper Name Role Phone Tami Olivia Primary Care Provider [phone] Encounter Details Date Type Department Care Team (Late st Contact Info) Description 10/10/2022 Orders Only Cardiology at [address] [phone] Sekou Canales MD [facility] [place] [address] Typical atrial flutter Social History Tobacco Use [...] Vascular Unit Level 3 [place] [address] Tiera Goldsmith MD [facility] [place] [address] Scheduled Procedures Name Priority Associated Diagnoses Date/Ti me ELECTROPHYSIOLOGY PROCEDURE Persistent atrial fibrillation CARDIOVERSION-ELECTIVE (WRVU 2) persistent atrial fibrillation TRANSESOPHAGEAL ECHOCARDIOGR AM (WRVU 2.3) persistent atrial fibrillation documented as of this encounter Visit Diagnoses Diagnosis Typical atrial flutter Atrial flutter documented in this encounter Care Teams Overcoil Stepper Relationship Specialty Start Date End Date Tami Olivia [address] [place] [address] PCP - General Family Medicine 12/30/20 documented as of this encounter
--- OUTSIDE RECORDS SUMMARY | 2023-12-11 22:58 | XMS_ITS | Encounter Summary ---
Author Organization [facility] Address [facility] [place] [address] Care Team Providers Care Tactical Intelligence Officer Name Role Phone Tami Olivia Primary Care Provider [phone] Encounter Details Date Type Department Care Team (Late st Contact Info) Description 06/12/2023 Orders Only Cardiology at [address] [address] Sekou Canales MD [facility] [place] [address] Persistent atrial fibrillation Social History Tobacco Use [...] Vascular Unit Level 3 [place] [address] Tiera Goldsmith MD [facility] [place] [address] Scheduled Procedures Name Priority Associated Diagnoses Date/Ti me ELECTROPHYSIOLOGY PROCEDURE Persistent atrial fibrillation CARDIOVERSION-ELECTIVE (WRVU 2) persistent atrial fibrillation TRANSESOPHAGEAL ECHOCARDIOGR AM (WRVU 2.3) persistent atrial fibrillation documented as of this encounter Visit Diagnoses Diagnosis Persistent atrial fibrillation Atrial fibrillation documented in this encounter Care Teams Tactical Intelligence Officer Relationship Specialty Start Date End Date Tami Olivia [address] [place] [address] PCP - General Family Medicine 12/30/20 documented as of this encounter
--- OUTSIDE RECORDS SUMMARY | 2023-12-11 22:58 | XMS_ITS | Encounter Summary ---
Author Organization [facility] Address [facility] [place] [address] Care Team Providers Care Living Nurse Name Role Phone Tami Olivia Primary Care Provider [phone] Encounter Details Date Type Department Care Team (Late st Contact Info) Description 06/08/2022 Telephone [place] [address] Megan Reza RN Social History Tobacco Use [...] Vascular Unit Level 3 [place] [address] Tiera Goldsmith MD [facility] [place] [address] Scheduled Procedures Name Priority Associated Diagnoses Date/Ti me ELECTROPHYSIOLOGY PROCEDURE Persistent atrial fibrillation CARDIOVERSION-ELECTIVE (WRVU 2) persistent atrial fibrillation TRANSESOPHAGEAL ECHOCARDIOGR AM (WRVU 2.3) persistent atrial fibrillation documented as of this encounter Visit Diagnoses Not on filedocumented in this encounter Care Teams Living Nurse Relationship Specialty Start Date End Date Tami Olivia [address] [place], [place] [address] PCP - General Family Medicine 12/30/20 documented as of this encounter
--- OUTSIDE RECORDS SUMMARY | 2023-12-11 22:58 | XMS_ITS | Encounter Summary ---
Author Organization [facility] [place] [address] Care Team Providers Care General Helper Name Role Phone Tami Olivia Primary Care Provider [phone] Encounter Details Date Type Department Care Team (Late st Contact Info) Description 08/17/2022 Telephone Pulmonology at [facility] [place] [address] [address] Gustafson RT Social History Tobacco Use [...] received a referral for Pulmonary Rehabilitation at [facility]. I inquired about his familiarity with Pulmonary [...] Vascular Unit Level 3 [place] [address] Tiera Goldsmith MD [facility] [place] [address] Scheduled Procedures Name Priority Associated Diagnoses Date/Ti mi ELECTROPHYSIOLOGY PROCEDURE Persistent atrial fibrillation CARDIOVERSION-ELECTIVE (WRVU 2) persistent atrial fibrillation TRANSESOPHAGEAL ECHOCARDIOGR AM (WRVU 2.3) persistent atrial fibrillation documented as of this encounter Visit Diagnoses Not on filedocumented in this encounter Care Teams General Helper Relationship Specialty Start Date End Date Tami Olivia [address] [place] [address] PCP - General Family Medicine 12/30/20 documented as of this encounter
--- OUTSIDE RECORDS SUMMARY | 2023-12-11 22:58 | XMS_ITS | Encounter Summary ---
Author Organization [facility] [place] [address] Care Team Providers Care Plant Operator/Shift Supervisor Name Role Phone Tami Olivia Primary Care Provider +1 [phone] Encounter Details Date Type Department Care Team (Late st Contact Info) Description 11/09/2022 Telephone Cardiology at [address] [phone] Jaquelin Murdock Social History Tobacco Use Types [...] EDT Email sent to Hailey Cavanaugh at [facility] Special[facility] asking for pt to be scheduled there for f/up with Dr. Canales. Jaquelin Murdock Sr. Clinical Procedure Vault Service Mechanic/EP documented in this encounter Plan of Treatment Upcoming Encounters Date Type Department Care Team (Late st Contact Info) Description 12/12/2023 Hospital Encounter Heart and Vascular Unit Level 3 [place] [address] Tiera Goldsmith MD [facility] [place] [address] Scheduled Procedures Name Priority Associated Diagnoses Date/Ti me ELECTROPHYSIOLOGY PROCEDURE Persistent atrial fibrillation CARDIOVERSION-ELECTIVE (WRVU 2) persistent atrial fibrillation TRANSESOPHAGEAL ECHOCARDIOGR AM (WRVU 2.3) persistent atrial fibrillation documented as of this encounter Visit Diagnoses Not on filedocumented in this encounter Care Teams Plant Operator/Shift Supervisor Relationship Specialty Start Date End Date Tami Olivia [address] [place] [address] PCP - General Family Medicine 12/30/20 documented as of this encounter
--- OUTSIDE RECORDS SUMMARY | 2023-12-11 22:58 | XMS_ITS | Encounter Summary ---
Author Organization [facility] Address [facility] [place] [address] Care Team Providers Care Valve Repairer Reclamation Name Role Phone Tami Olivia Primary Care Provider [phone] Encounter Details Date Type Department Care Team [...] Vascular Unit Level 3 [place] [address] Tiera Goldsmith MD [facility] [place] [address] Scheduled Procedures Name Priority Associated Diagnoses Date/Ti me ELECTROPHYSIOLOGY PROCEDURE Persistent atrial fibrillation CARDIOVERSION-ELECTIVE (WRVU 2) persistent atrial fibrillation TRANSESOPHAGEAL ECHOCARDIOGR AM (WRVU 2.3) persistent atrial fibrillation documented as of this encounter Visit Diagnoses Not on filedocumented in this encounter Care Teams Valve Repairer Reclamation Relationship Specialty Start Date End Date Tami Olivia [address] [place] [address] PCP - General Family Medicine 12/30/20 documented as of this encounter
--- OUTSIDE RECORDS SUMMARY | 2023-12-11 22:58 | XMS_ITS | Encounter Summary ---
Author Organization [facility] [place] [address] Care Team Providers Care Reporter Anchor Name Role Phone SudhakarJacksonTami Primary Care Provider [phone] Reason for Referral * Diagnostic Test (Routine) - New Request Specialty Diagnoses / Procedures Referred By Bert gautam Referred To Contact Cardiology Diagnoses Persistent atrial fibrillation Procedures Transesophageal Echocardiogram (HARSH) Sekou Canales MD [facility] [place] [address] [facility] [place] [address] Referral ID Status Reason Start Date Expiration Date Visits Requested Visits Authorized [id number] New Request Specialty Service Requested 12/11/2023 12/10/2024 1 1 * Diagnostic Test (Routine) - New Request Specialty Diagnoses / Procedures Referred By Bert gautam Referred To Contact Cardiology Diagnoses Persistent atrial fibrillation Procedures Trans Echo (HARSH) with Cardioversion Sekou Canales MD [facility] [place] [address] [facility] [place] [address] Referral ID Status Reason Start Date Expiration Date Visits Requested Visits Authorized [id number] New Request Specialty Service Requested 12/11/2023 12/10/2024 1 1 Encounter Details Date Type Department Care Team (Late st Contact Info) Description 12/11/2023 Orders Only Cardiology at [address] [address] Sekou Canales MD [facility] [place] [address] Persistent atrial fibrillation Social History Tobacco Use Types Packs/Day Years Used Date Smoking Tobacco: Former Cigarettes Smokeless Tobacco: Never Comments:1 ppd for the past year Alcohol Use Standard Drinks/Week Comments Not Currently 0 (1 standard drink = 0.6 oz pur e alcohol) [facility] Inpatient Questions Answer Date Recorded [...] Vascular Unit Level 3 [place] [address] Tiera Goldsmith MD [facility] [place] [address] Scheduled Orders Name Type Priority Associated Diagnoses [...] fibrillation documented in this encounter Care Teams Reporter Anchor Relationship Specialty Start Date End Date Tami Olivia [address] [place] [address] PCP - General Family Medicine 12/30/20 documented as of this encounter
--- OUTSIDE RECORDS SUMMARY | 2023-12-11 22:58 | XMS_ITS | Encounter Summary ---
Author Organization [facility] Address [facility] [place] [address] Care Team Providers Care Narrow Gauge Brakeman Name Role Phone Tami Olivia Primary Care Provider [phone] Encounter Details Date Type Department Care Team (Late st Contact Info) Description 05/25/2022 Telephone Thoracic Surgery at [facility] [place] [phone] Megan Reza, RN Social History Tobacco Use [...] Vascular Unit Level 3 [place] [address] Tiera Goldsmith MD [facility] [place] [address] Scheduled Procedures Name Priority Associated Diagnoses Date/Ti me ELECTROPHYSIOLOGY PROCEDURE Persistent atrial fibrillation CARDIOVERSION-ELECTIVE (WRVU 2) persistent atrial fibrillation TRANSESOPHAGEAL ECHOCARDIOGR AM (WRVU 2.3) persistent atrial fibrillation documented as of this encounter Visit Diagnoses Not on filedocumented in this encounter Care Teams Narrow Gauge Brakeman Relationship Specialty Start Date End Date Tami Olivia: [phone] [address] [place] [address] PCP - General Family Medicine 12/30/20 documented as of this encounter
--- OUTSIDE RECORDS SUMMARY | 2023-12-11 22:58 | XMS_ITS | Encounter Summary ---
Author Organization [facility] Address [facility] [place] [address] Care Team Providers Care Licensed Reactor Operator Name Role Phone Tami Olivia Primary Care Provider [phone] [phone] Encounter Details Date Type Department Care Team (Late st Contact Info) Description 12/12/2022 Orders Only Cardiology at [address] [address] Sekou Canales MD [facility] [address] Typical atrial flutter; Nonischemic cardiomyopathy Social History [...] Vascular Unit Level 3 [place] [address] Tiera Goldsmith MD [facility] [place] [address] Scheduled Procedures Name Priority Associated Diagnoses Date/Ti me ELECTROPHYSIOLOGY PROCEDURE Persistent atrial fibrillation CARDIOVERSION-ELECTIVE (WRVU 2) persistent atrial fibrillation TRANSESOPHAGEAL ECHOCARDIOGR AM (WRVU 2.3) persistent atrial fibrillation documented as of this encounter Visit Diagnoses Diagnosis Typical atrial flutter Atrial flutter Nonischemic cardiomyopathy Other primary cardiomyopathies documented in this encounter Care Teams Licensed Reactor Operator Relationship Specialty Start Date End Date Tami Olivia [address] [place] [address] PCP - General Family Medicine 12/30/20 documented as of this encounter
--- OUTSIDE RECORDS SUMMARY | 2023-12-11 22:58 | XMS_ITS | Encounter Summary ---
Author Organization [facility] [place] [address] Care Team Providers Care Aircraft Steel Fabricator Name Role Phone Tami Olivia Primary Care Provider [phone] Reason for Referral * Consultation (Routine) - Closed Specialty Diagnoses / Procedures Referred By Contact Referred To Contact Electrophysiology / Cardiology Diagnoses Atrial flutter, unspecified type AFL, on Amio but HR not controlled. Discuss AFL ablation Basilia Joseph MD [address] [place], [place] [address] [place] [address] [address] [place] [phone] Referral ID Status Reason Start Date Expiration Date V isits Requested Visits Authorized [id number] Closed Consult, Test & Treat PCP Updated and/or Approved 06/26/2022 06/26/2023 1 1 Encounter Details Date Type Department Care Team (Latest Contact Info) Description 06/26/2022 Transcribe Orders eDH Incoming Referrals [phone] Basilia Joseph MD Atrial flutter, unspecified type [...] Upcoming Encounters Date Type Department Care Team ([facility] st Contact Info) Description 12/12/2023 Hospital Encounter Heart and Vascular Unit Level 3 [place] [address] Tiera Goldsmith MD [facility] [place] [address] Scheduled Procedures Name Priority Associated Diagnoses Date/Ti [...] type documented in this encounter Care Teams Aircraft Steel Fabricator Relationship Specialty Start Date End Date Tami Olivia [address] [place] [address] PCP - General Family Medicine 12/30/20 documented as of this encounter
--- OUTSIDE RECORDS SUMMARY | 2023-12-11 22:58 | XMS_ITS | Encounter Summary ---
Author Organization [facility] [place] [place] [address] Care Team Providers Care Oil Sales And Service Rep Name Role Phone Tami Olivia Primary Care Provider [phone] Reason for Visit * Auth/Cert (Routine) Specialty Diagnoses / Procedures Referred By Bert t Referred To Contact Diagnoses Atrial flutter atrial flutter Procedures PRO CARDIOVERSION ELECTIVE ARRHYTHMIA EXTERNAL CARDIOVERSION-ELECTIVE (WRVU 2) Sekou Canales MD [facility] [place] [address] [facility] Referral ID Status Reason Start Date Expiration Date Visits Re quested Visits Authorized [id number] 1 1 Encounter Details Date Type Department Care Team (Latest Contact Info) Description 11/08/2022 9:15 AM EDT Laboratory Appointment Lab [address] [place] [address] Encounter for monitoring amiodarone therapy; Longstanding persistent [...] Vascular Unit Level 3 [place] [phone] Tiera Goldsmith MD [facility] [place] [address] Scheduled Procedures Name Priority Associated Diagnoses Date/Ti [...] EDT) Glucose 81 65 - 199 mg/dL [facility] Comment:Diabetes: >=200 mg/d L plus symptoms Blood Urea Nitrogen 25(H) 10 - 20 mg/dL [facility] Creatinine 1.58(H) 0.80 - 1.50 mg/dL [facility] Sodium 138 135 - 145 mmol/L [facility] Potassium 4.5 3.5 - 5.0 mmol/L [facility] Comment: Please note: ??Patients with WBC >100,000 may have falsely elevated Potassium levels. ??For accurate Potassium quantification in these patients send serum separator tube (gold top) for subsequent determinations. ??Contact the Clinical Chemistry Laboratory if there are any questions. Chloride 101 98 - 107 mmol/L [facility] Carbon Dioxide 25 22 - 31 mmol/L [facility] Anion Gap 12 5 - 15 mmol/L [facility] Calcium 9.6 8.5 - 10.5 mg/dL [facility] Protein, Total 7.5 6.1 - 8.0 g/dL [facility] Albumin 4.2 3.2 - 5.2 g/dL [facility] Aspartate Aminotransferase 33 0 - 39 unit/L [facility] Alanine Aminotransferase 32 0 - 55 unit/L [facility] Alkaline Phosphatase 104 40 - 130 unit/L [facility] Bilirubin, Total 0.6 0.2 - 1.3 mg/dL [facility] Est Glomerular Filtration Rate 46(L) >=60 mL/min/1. 73 m?? [facility] Comment: This patient's estimated GFR [...] In Lab Sekou Canales MD CHEMISTRY ORDERABLES [facility] [place] [address] * Magnesium (11/08/2022 9:17 AM EDT) Magnesium 0.90 0.69 - 1.07 mmol/L [facility] Blood 11/08/2022 9:17 AM EDT 11/08/2022 9:24 AM EDT Narrative Resulting Agency Comment Spec In Lab Sekou Canales MD CHEMISTRY ORDERABLES [facility] [place] [address] * TSH [place] (11/08/2022 9:17 AM EDT) Thyroid Stimulating Hormone 3.91 0.27 - 4.20 mcIU/mL [facility] Comment: Reference Interval (mcIU/mL): Females: ??First Trimester: 0.23-3.88 ??Second Trimester: 0.22-3.90 ??Third Trimester: 0.44-4.66 Blood 11/08/2022 9:17 AM EDT 11/08/2022 9:24 AM EDT Narrative Resulting Agency Comment Spec In Lab Sekou Canales MD CHEMISTRY ORDERABLES [facility] [place] [address] documented in this encounter Visit Diagnoses Diagnosis Encounter for monitoring amiodarone therapy Encounter for therapeutic drug monitoring Longstanding persistent atrial fibrillation documented in this encounter Care Teams Oil Sales And Service Rep Relationship Specialty Start Date End Date Tami Olivia [address] [place] [address] PCP - General Family Medicine 12/30/20 documented as of this encounter
--- OUTSIDE RECORDS SUMMARY | 2023-12-11 22:58 | XMS_ITS | Encounter Summary ---
Author Organization [facility] Address [facility] [place] [address] Care Team Providers Care Credit Portfolio Advisor Name Role Phone Tami Olivia Primary Care Provider [phone] Encounter Details Date Type Department Care Team (Late st Contact Info) Description 06/07/2022 Telephone Thoracic Surgery at [facility] [place] [phone] Megan Reza, RN Social History Tobacco Use [...] Vascular Unit Level 3 [place] [address] Tiera Goldsmith MD [facility] [place] [address] Scheduled Procedures Name Priority Associated Diagnoses Date/Ti me ELECTROPHYSIOLOGY PROCEDURE Persistent atrial fibrillation CARDIOVERSION-ELECTIVE (WRVU 2) persistent atrial fibrillation TRANSESOPHAGEAL ECHOCARDIOGR AM (WRVU 2.3) persistent atrial fibrillation documented as of this encounter Visit Diagnoses Not on filedocumented in this encounter Care Teams Credit Portfolio Advisor Relationship Specialty Start Date End Date Tami Olivia [address] [place] [address] PCP - General Family Medicine 12/30/20 documented as of this encounter
--- OUTSIDE RECORDS SUMMARY | 2023-12-11 22:58 | XMS_ITS | Encounter Summary ---
Author Organization [facility] Address [facility] [place] [address] Care Team Providers Care Utility Operator Yarn Name Role Phone Tami Olivia Primary Care Provider [phone] Reason for Visit * Reason Onset Date Comments Appointment 08/22/2022 CT Encounter Details Date Type Department Care Team (Late st Contact Info) Description 08/22/2022 Telephone [place] [phone] Ramon Schneider, RN Appointment (CT) Social History [...] Vascular Unit Level 3 [place] [phone] Tiera Goldsmith MD [facility] [place] [address] Scheduled Procedures Name Priority Associated Diagnoses Date/Ti me ELECTROPHYSIOLOGY PROCEDURE Persistent atrial fibrillation CARDIOVERSION-ELECTIVE (WRVU 2) persistent atrial fibrillation TRANSESOPHAGEAL ECHOCARDIOGR AM (WRVU 2.3) persistent atrial fibrillation documented as of this encounter Visit Diagnoses Not on filedocumented in this encounter Care Teams Utility Operator Yarn Relationship Specialty Start Date End Date Tami Olivia [address] [place] [address] PCP - General Family Medicine 12/30/20 documented as of this encounter
--- OUTSIDE RECORDS SUMMARY | 2023-12-11 22:58 | XMS_ITS | Encounter Summary ---
Author Organization [facility] Address [facility] [place] [address] Care Team Providers Care Web Development Director Name Role Phone Tami Olivia Primary Care Provider [phone] Reason for Visit * Auth/Cert (Routine) Specialty Diagnoses / Procedures Referred By Bert t Referred To Contact Diagnoses Atrial flutter atrial flutter Procedures PRO CARDIOVERSION ELECTIVE ARRHYTHMIA EXTERNAL CARDIOVERSION-ELECTIVE (WRVU 2) Sekou Canales MD [facility] [place] [address] [facility] Referral ID Status Reason Start Date Expiration Date Visits Re quested Visits Authorized [id number] 1 1 Encounter Details Date Type Department Care Team (Latest Contact Info) Description 11/08/2022 11:41 AM EDT - 11/08/2022 2:06 PM EDT Hospital Encounter [place] [address] Sekou Canales MD [facility] [place] [address] Typical atrial flutter; Atrial fibrillation, unspecified type Discharge Disposition: Home Social History Tobacco Use Types Packs/Day Years Used Date Smoking Tobacco: Former Cigarettes Smokeless Tobacco: Never Comments:1 ppd for the past year Alcohol Use Standard Drinks/Week Comments Not Currently 0 (1 standard drink = 0.6 oz pur e alcohol) [facility] Inpatient Questions Answer Date Recorded Does Anyone [...] the adhesive pads were placed, call the instructional designer personal financial advisor at . We will schedule a follow-up appointment with the instructional designer here, or you will be scheduled to [...] Vascular Unit Level 3 [place] [address] Tiera Goldsmith MD [facility] [place] [address] Scheduled Orders Name Type Priority Associated Diagnoses [...] 6 PM EDT Cardioversion Elective Arrhythmia External (59481) 11/08/2022 12:38 PM EDT atrial flutter documented in this encounter Results * EKG 12 Lead (11/08/2022 1:18 PM EDT) Ventricular rate 47 BPM MUSE SYSTEM Atrial Rate 47 BPM MUSE SYSTEM P-R Interval 210 ms MUSE SYSTEM QRS Duration 104 ms MUSE SYSTEM Q-T Interval 476 ms MUSE SYSTEM QTC Calculated (Bezet) 421 ms MUSE SYSTEM Calculated P Criders 71 degrees MUSE SYSTEM Calculated R Criders 91 degrees MUSE SYSTEM Calculated T Criders 59 degrees MUSE SYSTEM INTERPRETATION Sinus bradycardia with 1st degree A-V block with Premature atrial complexes Rightward axis Borderline ECG When compared with ECG of 08-NOV-2022 11:19, Sinus rhythm has replaced Atrial flutter Vent. rate has decreased BY ??42 BPM QT has shortened Confirmed by MD Bob, Sloan ([id number]) on 11/10/2022 3:59:25 PM MUSE SYSTEM 11/08/2022 [...] CRNA) documented in this encounter Care Teams Web Development Director Relationship Specialty Start Date End Date Tami Olivia [address] [place] [address] PCP - General Family Medicine 12/30/20 documented as of this encounter
--- OUTSIDE RECORDS SUMMARY | 2023-12-11 22:58 | XMS_ITS | Encounter Summary ---
Author Organization [facility] [place] [address] Care Team Providers Care Logistics Lead Name Role Phone Tami Olivia Primary Care Provider [phone] Reason for Visit * Auth/Cert (Routine) Specialty Diagnoses / Procedures Referred By Bert t Referred To Contact Diagnoses Atrial flutter atrial flutter Procedures PRO CARDIOVERSION ELECTIVE ARRHYTHMIA EXTERNAL CARDIOVERSION-ELECTIVE (WRVU 2) Sekou Canales MD [facility] [place] [address] [facility] Referral ID Status Reason Start Date Expiration Date Visits Re quested Visits Authorized [id number] 1 1 Encounter Details Date Type Department Care Team (Late st Contact Info) Description 11/08/2022 12:37 PM EDT Anesthesia [place] [address] Mary Wagoner MD [facility] [place] [address] Shashank Chung MD [facility] [place] [address] Anesthesia Record Procedure Summary Procedure Name Responsible [...] 1221; median vein (underside of arm), left; mzxl-yis-iydlfc catheter system; Anatomical Landmarks; 20 gauge, 1 [...] Procedure Summary Date: 11/08/22 Room / Location: [facility] / [facility] OR Anesthesia Start: 1237 Anesthesia Stop: 1257 Procedure: CARDIOVERSION-ELECTIVE (WRVU 2) Diagnosis: (atrial flutter) Surgeons: Sekou Canales MD Responsible Provider: Mary Wagoner MD Anesthesia Type: MAC ASA Status: 3 All Anesthesia Providers: Anesthesiologist: Mary Wagoner MD SUPERVISOR BOILER REPAIR: Yosef Cantu CRNA Vitals Value Taken Time BP 98/58 11/08/22 1300 Temp 36.3 ??C (97.3 ??F) 11/08/22 1256 Pulse 56 11/08/22 1328 Resp 14 11/08/22 1328 SpO2 100 % 11/08/22 1328 Pain Level Vitals shown include unvalidated device data. [facility] Level of Consciousness: Conscious but Sleepy Pain [...] IR Thoracentesis Left 11/08/2021 ForRamírez caldera MD [facility] ??? PRO BRONCHOSCOPY, DIAGNOSTIC N/A 03/29/2021 BRONCHOSCOPY, DIAGNOSTIC (WRVU 2.78) performed by Gilmer Gutiérrez MD at [facility] OR ??? PRO BRONCHOSCOPY, DIAGNOSTIC N/A 02/08/2022 BRONCHOSCOPY, DIAGNOSTIC (WRVU 2.78) performed by Gilmer Gutiérrez MD at [facility] OR ??? PRO BRONCHOSCOPY, DIAGNOSTIC N/A 05/18/2022 BRONCHOSCOPY, DIAGNOSTIC (WRVU 2.53) performed by Gilmer Gutiérrez MD at [facility] OR ??? PRO DECORTICATION, PULMONARY, TOTAL Left 05/18/2022 @THORACOTOMY,DECORTICATION, PULMONARY, TOTAL (WRVU 26.65) performed by Gilmer Gutiérrez MD [facility] OR ? ? PRO INJECTION ANES AGENT &/ STEROID INTERCOSTAL NERVE SINGLE LEVEL Left 03/29/2021 NERVE BLOCK, INTERCOSTAL NERVE (WRVU 1.18) performed by Gilmer Gutiérrez MD at [facility] OR ??? PRO RECONSTRUCT INJURED CHEST Left 05/18/2022 @MAJOR RECONSTRUCTION, CHEST WALL (WRVU 22.51) performed by Gilmer Gutiérrez MD at [facility] OR ??? PRO THORACOSCOPY SURG LOBECTOMY Left 03/29/2021 @THORACOSCOPY,SURGICAL,W\LOBECTOMY,TOTAL OR SEGMENTAL (WRVU 24.64) performed by Johana Gutiérrez MD at [facility] OR ??? PRO THORACOSCOPY WITH BIOPSY OF PLEURA Left 02/08/2022 THORACOSCOPY; WITH BIOPSY(IES) OF PLEURA (WRVU 4.58) performed by Gilmer Gutiérrez MD at [facility] OR ??? PRO THORACOSCOPY WITH MEDIASTINAL AND REGIONAL LYMPHADENECTOMY 03/29/2021 @THORACOSCOPY, SURG; W/MEDIASTINAL& REGIONAL LYMPHADENECTOMY (WRVU 4.12) performed by Gilmer Gutiérrez MD at [facility] OR ??? PRO THORACOSCOPY WITH WEDGE RESECTION AND ANATOMIC LUNG RESECTN Left 03/29/2021 @THORACOSCOPY, SURG; W/DX WEDGE RESC W/ANATOMIC LUNG RESC (WRVU 3) performed by Johana Gutiérrez MD at [facility] OR Social History Tobacco Use ??? [...] risks discussed with patient. Plan discussed with SUPERVISOR BOILER REPAIR and attending. Anesthesia Screening documented in this encounter Plan of Treatment Upcoming Encounters Date Type Department Care Team (Late st Contact Info) Description 12/12/2023 Hospital Encounter Heart and Vascular Unit Level 3 [place] [address] Tiera Goldsmith MD [facility] [place] [address] Scheduled Procedures Name Priority Associated [...] mg documented in this encounter Care Teams Logistics Lead Relationship Specialty Start Date End Date Tami Olivia [address] [place] [address] PCP - General Family Medicine 12/30/20 documented as of this encounter
--- OUTSIDE RECORDS SUMMARY | 2023-12-11 22:59 | XMS_ITS | Encounter Summary ---
Author Organization [facility] Address [facility] [place] [address] Care Team Providers Care Drama Teacher Name Role Phone Tami Olivia Primary Care Provider [phone] Encounter Details Date Type Department Care Team [...] Vascular Unit Level 3 [place] [address] Tiera Goldsmith MD [facility] [place] [address] Scheduled Procedures Name Priority Associated Diagnoses Date/Ti me ELECTROPHYSIOLOGY PROCEDURE Persistent atrial fibrillation CARDIOVERSION-ELECTIVE (WRVU 2) persistent atrial fibrillation TRANSESOPHAGEAL ECHOCARDIOGR AM (WRVU 2.3) persistent atrial fibrillation documented as of this encounter Visit Diagnoses Not on filedocumented in this encounter Care Teams Drama Teacher Relationship Specialty Start Date End Date Tami Olivia [address] [place] [address] PCP - General Family Medicine 12/30/20 documented as of this encounter
--- OUTSIDE RECORDS SUMMARY | 2023-12-11 22:59 | XMS_ITS | Encounter Summary ---
Author Organization [facility] Address [facility] [place] [address] Care Team Providers Care Labor Crew Supervisor Name Role Phone Tami Olivia Primary Care Provider [phone] Encounter Details Date Type Department Care Team (Late st Contact Info) Description 02/22/2022 Telephone Thoracic Surgery at [facility] [place] [id number] Megan Reza, RN Social History Tobacco Use [...] Vascular Unit Level 3 [place] [address] Tiera Goldsmith MD [facility] [place] [address] Scheduled Procedures Name Priority Associated Diagnoses Date/Ti me ELECTROPHYSIOLOGY PROCEDURE Persistent atrial fibrillation CARDIOVERSION-ELECTIVE (WRVU 2) persistent atrial fibrillation TRANSESOPHAGEAL ECHOCARDIOGR AM (WRVU 2.3) persistent atrial fibrillation documented as of this encounter Visit Diagnoses Not on filedocumented in this encounter Care Teams Labor Crew Supervisor Relationship Specialty Start Date End Date Tami Olivia [address] [place] [address] PCP - General Family Medicine 12/30/20 documented as of this encounter
--- OUTSIDE RECORDS SUMMARY | 2023-12-11 22:59 | XMS_ITS | Encounter Summary ---
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 Procedures PRO THORACOSCOPY SURG TOT PULM DECORT @ROBOT XI THORACOSCOPY,SURG; W TOTAL DECORTICATION (WRVU 29.13) Parth Foster MD [facility] [place] [address] [facility] Referral ID Status Reason Start Date Expiration Date Visits Re quested Visits Authorized [id number] 1 1 Encounter Details Date Type Department Care Team (Late st Contact Info) Description 05/18/2022 8:30 AM EST - 05/18/2022 2:15 PM EST Surgery [place] [address] Parth Foster MD [facility] [place] [address] @THORACOTOMY,DECORTICA TION, PULMONARY, TOTAL (WRVU 26.65) Social [...] Primary * Linda Mustafa PA - Physician Claims Account Specialist * Renu Donald PA - Physician Claims Account Specialist * Morales Armas MD - Resident Procedure: [...] admitted to [facility] on 05/18/2022 via the Same Day Program. [...] who have questions please contact the health resident care director that requested your imaging first. Electronically signed by: Maryann Magallanes MD, [facility] ([phone]), at 05/18/2022 4:02 PM XR Chest PA & Lateral (Generic) (Exam End: 05/19/2022 11:06 AM) Impression Similar partially loculated moderate left hydropneumothorax. Thank you for letting us participate in the care of this patient. If you are a health care provider and have any questions regarding this report, please contact the number below. For patients who have questions please contact the health resident care director that requested your imaging first. Electronically signed by: Savanah Suazo MD, [facility] ([phone]), at 05/19/2022 11:16 AM XR Chest PA [...] who have questions please contact the health resident care director that requested your imaging first. Electronically signed by: Philip Church MD, [facility] ([phone]), at 05/23/2022 7:33 AM XR Chest PA [...] who have questions please contact the health resident care director that requested your imaging first. Electronically signed by: Marcus Edwards MD, [facility] ([phone]), at 05/24/2022 8:58 AM XR Chest PA [...] who have questions please contact the health resident care director that requested your imaging first. Electronically signed by: Marcus Edwards MD, [facility] ([phone]), at 05/24/2022 10:06 AM Pending Studies and [...] a nurse in the Thoracic Clinic at [phone]. After hours or on weekends or holidays please call: [phone] and ask to speak to the Thoracic Surgeon corrosion control engineer. Exercise & Activity Level: As you recover [...] please call the thoracic surgery clinic at [phone]. Driving: No driving for 1 week or [...] the Thoracic Clinic or the Thoracic Surgeon corrosion control engineer after hours. Please take over the counter [...] Expires XR Chest PA & Lateral (Generic) [[id number] Custom] 06/07/2022 12/07/2022 Process Instructions: Scheduling Instructions: Questions: Reason for exam and clinical history: s/p left thoracotomy and decortication Clinical information / bryan questions for radiologist: eval for effusion and/or ptx Where will study be performed?: [facility] Radiology Portable exam?: Stat read required?: Date of injury if applicable: Requested Time: Referral to Pulmonary Rehab [[id number] Custom] As directed Process Instructions: Scheduling Instructions: Questions: May include the following tests: Breathing Retraining: Diaphragmatic Techniques Provider Contact Information: Primary Care Provider: Tami Olivia [phone] Discharge References/Attachments: Discharge References/Attachments None For questions [...] a nurse in the Thoracic Clinic at [phone]. After hours or on weekends or holidays please call: [phone] and ask to speak to the Thoracic Surgeon corrosion control engineer. Exercise & Activity Level: As you recover [...] please call the thoracic surgery clinic at [phone]. Driving: No driving for 1 week or [...] the Thoracic Clinic or the Thoracic Surgeon corrosion control engineer after hours. Please take over the counter [...] cane for ~ 2 weeks. 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 Enjoys 4-wheeling, kayaking and [...] in reach and aware to call for nursing staff development coordinator assistance with all mobility. Education: Pt educated on ther-ex, breathing, LUE precautions and sling use- and to wait for LUE activity and ROM progression until MD follow, and to have supervision of nursing staff development coordinator or family for safetywith all mobility Assessment: [...] and d/c planning. LUIS MIGUEL PEREZ, PT Pager:[phone] Physical Therapy Inpatient Rehabilitation Department * Radha [...] Thoracentesis Left 11/08/2021 Forauer, Ramírez Ziegler MD [facility] INTERVENTIONL RAD ??? PRO BRONCHOSCOPY, DIAGNOSTIC N/A 03/29/2021 ?? BRONCHOSCOPY, DIAGNOSTIC (WRVU 2.78) performed by Parth Foster MD at [facility] OR ??? PRO BRONCHOSCOPY, DIAGNOSTIC N/A 02/08/2022 ?? BRONCHOSCOPY, DIAGNOSTIC (WRVU 2.78) performed by Parth Foster MD at [facility] OR ??? PRO BRONCHOSCOPY, DIAGNOSTIC N/A 05/18/2022 ?? BRONCHOSCOPY, DIAGNOSTIC (WRVU 2.53) performed by Parth Foster MD at [facility] OR ??? PRO DECORTICATION, PULMONARY, TOTAL Left 05/18/2022 ?? @THORACOTOMY,DECORTICATION, PULMONARY, TOTAL (WRVU 26.65) performed by Parth Foster MDat [facility] OR ? ? PRO INJECTION ANES AGENT &/ STEROID INTERCOSTAL NERVE SINGLE LEVEL Left 03/29/2021 ?? NERVE BLOCK, INTERCOSTAL NERVE (WRVU 1.18) performed by Parth Foster MD at [facility] OR ??? PRO RECONSTRUCT INJURED CHEST Left 05/18/2022 ?? @MAJOR RECONSTRUCTION, CHEST WALL (WRVU 22.51) performed by Parth Foster MD at [facility] MAIN OR ??? PRO THORACOSCOPY SURG LOBECTOMY Left 03/29/2021 ?? @THORACOSCOPY,SURGICAL,W\LOBECTOMY,TOTAL OR SEGMENTAL (WRVU 24.64) performed by Parth Foster MD at [facility] MAIN OR ??? PRO THORACOSCOPY WITH BIOPSY OF PLEURA Left 02/08/2022 ?? THORACOSCOPY; WITH BIOPSY(IES) OF PLEURA (WRVU 4.58) performed by Parth Foster MD at [facility] MAIN OR ??? PRO THORACOSCOPY WITH MEDIASTINAL AND REGIONAL LYMPHADENECTOMY ?? 03/29/2021 ?? @THORACOSCOPY, SURG; W/MEDIASTINAL& REGIONAL LYMPHADENECTOMY (WRVU 4.12) performed by Parth Foster MD at [facility] MAIN OR ??? PRO THORACOSCOPY WITH WEDGE RESECTION AND ANATOMIC LUNG RESECTN Left 03/29/2021 ?? @THORACOSCOPY, SURG; W/DX WEDGE RESC W/ANATOMIC LUNG RESC (WRVU 3) performed by Parth Foster MD at [facility] MAIN OR ? Social History: Patient lives [...] more times Total Minutes, Occupational Therapy: 25 (md x2 ([phone]) Pager: [phone] GRAEME Velasco 05/24/2022 Occupational Therapy Rehabilitation Department [...] cane for ~ 2 weeks. 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 Enjoys 4-wheeling, kayaking and [...] in reach and aware to call for nursing staff development coordinator assistance with all mobility. Education: Pt educated [...] aware to callfor assistance with mobility, and nursing staff development coordinator aware of his status. Expect d/c to [...] Code: functional mobility LUIS MIGUEL PEREZ, PT Pager:[phone] Physical Therapy Inpatient Rehabilitation Department * Messi [...] Thoracentesis Left 11/08/2021 Forwerner, Ramírez Ziegler MD [facility] INTERVENTIONL RAD ??? PRO BRONCHOSCOPY, DIAGNOSTIC N/A 03/29/2021 ?? BRONCHOSCOPY, DIAGNOSTIC (WRVU 2.78) performed by Parth Foster MD at [facility] OR ??? PRO BRONCHOSCOPY, DIAGNOSTIC N/A 02/08/2022 ?? BRONCHOSCOPY, DIAGNOSTIC (WRVU 2.78) performed by Parth Foster MD at [facility] OR ??? PRO BRONCHOSCOPY, DIAGNOSTIC N/A 05/18/2022 ?? BRONCHOSCOPY, DIAGNOSTIC (WRVU 2.53) performed by Parth Foster MD at [facility] OR ??? PRO DECORTICATION, PULMONARY, TOTAL Left 05/18/2022 ?? @THORACOTOMY,DECORTICATION, PULMONARY, TOTAL (WRVU 26.65) performed by Parth Foster MDat [facility] OR ? ? PRO INJECTION ANES AGENT &/ STEROID INTERCOSTAL NERVE SINGLE LEVEL Left 03/29/2021 ?? NERVE BLOCK, INTERCOSTAL NERVE (WRVU 1.18) performed by Parth Foster MD at [facility] OR ??? PRO RECONSTRUCT INJURED CHEST Left 05/18/2022 ?? @MAJOR RECONSTRUCTION, CHEST WALL (WRVU 22.51) performed by Parth Foster MD at [facility] OR ??? PRO THORACOSCOPY SURG LOBECTOMY Left 03/29/2021 ?? @THORACOSCOPY,SURGICAL,W\LOBECTOMY,TOTAL OR SEGMENTAL (WRVU 24.64) performed by Parth Foster MD at [facility] OR ??? PRO THORACOSCOPY WITH BIOPSY OF PLEURA Left 02/08/2022 ?? THORACOSCOPY; WITH BIOPSY(IES) OF PLEURA (WRVU 4.58) performed by Parth Foster MD at [facility] MAIN OR ??? PRO THORACOSCOPY WITH MEDIASTINAL AND REGIONAL LYMPHADENECTOMY ?? 03/29/2021 ?? @THORACOSCOPY, SURG; W/MEDIASTINAL& REGIONAL LYMPHADENECTOMY (WRVU 4.12) performed by Parth Foster MD at [facility] MAIN OR ??? PRO THORACOSCOPY WITH WEDGE RESECTION AND ANATOMIC LUNG RESECTN Left 03/29/2021 ?? @THORACOSCOPY, SURG; W/DX WEDGE RESC W/ANATOMIC LUNG RESC (WRVU 3) performed by Parth Foster MD at [facility] MAIN OR ? Social History: Patient lives [...] sitting EOB) ?? Dressing: Min A (pt [facility] with assistance for line management) [...] Total Minutes, Occupational Therapy: 34 ([facility] X2 ([phone])) Pager: [phone] Messi Dooley OT 05/23/2022 Occupational Therapy Rehabilitation [...] acting as a scribe for Dr. Molina. [facility] Nurse: Oj Don RN Resident:: Jakob Dickerson DO Attending Physician:: Katie Molina MD I performed the above scribed service and agree with the accuracy of the note. KATIE MOLINA MD * Camilo Stevenson PA - 05/23/2022 9:19 AM EDT [facility] Department of Thoracic Surgery Inpatient Progress Note Patient Name: Rajan Marquez Patient : 1950 Patient Patient Location: [facility]- Attending Surgeon: PARTH FOSTER ID: Rajan Marquez [...] Surgical Unit Level [address] [facility] Office Visit from 04/30/2022 in Thoracic Surgery at [facility] Weight 73.1 kilograms, or 161 pounds 2.5 [...] STEVE Black 05/23/2022 Thoracic Surgery Service Pager [phone] * Katie Molina MD - 05/22/2022 9:34 [...] acting as a scribe for Dr. Molina. [facility] Nurse: Oj Don RN Resident:: Jakob Dickerson DO Attending Physician:: Katie Molina MD I performed the above scribed service and agree with the accuracy of the note. KATIE MOLINA MD * Renu Donald PA - 05/22/2022 6:40 AM EDT Images from the original note were not included. [facility] Department of Thoracic Surgery Inpatient Progress Note Patient Name: Rajan Marquez Patient : 1950 [facility] Attending Surgeon: PARTH FOSTER ID: Rajan Marquez [...] Surgical Unit Level [address] [facility] Office Visit from 04/30/2022 in Thoracic Surgery at [facility] Weight 77 kg (169 lb 11.2 oz) [...] STEVE Patel 05/22/2022 Thoracic Surgery Service Pager [phone] * Devorah Rivera RN - 05/22/2022 4:40 [...] IR Thoracentesis Left 11/08/2021 Ramírez Ramirez MD [facility] INTERVENTIONL RAD ??? PRO BRONCHOSCOPY, DIAGNOSTIC N/A 03/29/2021 BRONCHOSCOPY, DIAGNOSTIC (WRVU 2.78) performed by Parth Foster MD at [facility] MAIN OR ??? PRO BRONCHOSCOPY, DIAGNOSTIC N/A 02/08/2022 BRONCHOSCOPY, DIAGNOSTIC (WRVU 2.78) performed by Parth Foster MD at [facility] MAIN OR ??? PRO BRONCHOSCOPY, DIAGNOSTIC N/A 05/18/2022 BRONCHOSCOPY, DIAGNOSTIC (WRVU 2.53) performed by Parth Foster MD at [facility] MAIN OR ??? PRO DECORTICATION, PULMONARY, TOTAL Left 05/18/2022 @THORACOTOMY,DECORTICATION, PULMONARY, TOTAL (WRVU 26.65) performed by Parth Foster MD [facility] MAIN OR ? ? PRO INJECTION ANES AGENT &/ STEROID INTERCOSTAL NERVE SINGLE LEVEL Left 03/29/2021 NERVE BLOCK, INTERCOSTAL NERVE (WRVU 1.18) performed by Parth Foster MD at [facility] MAIN OR ??? PRO RECONSTRUCT INJURED CHEST Left 05/18/2022 @MAJOR RECONSTRUCTION, CHEST WALL (WRVU 22.51) performed by Parth Foster MD at [facility] MAIN OR ??? PRO THORACOSCOPY SURG LOBECTOMY Left 03/29/2021 @THORACOSCOPY,SURGICAL,W\LOBECTOMY,TOTAL OR SEGMENTAL (WRVU 24.64) performed by Johana Foster MD at [facility] MAIN OR ??? PRO THORACOSCOPY WITH BIOPSY OF PLEURA Left 02/08/2022 THORACOSCOPY; WITH BIOPSY(IES) OF PLEURA (WRVU 4.58) [facility] ??? PRO THORACOSCOPY WITH MEDIASTINAL AND REGIONAL LYMPHADENECTOMY 03/29/2021 @THORACOSCOPY, SURG; W/MEDIASTINAL& REGIONAL LYMPHADENECTOMY (WRVU 4.12) performed by Parth Foster MD at [facility] MAIN OR ??? PRO THORACOSCOPY WITH WEDGE RESECTION AND ANATOMIC LUNG RESECTN Left 03/29/2021 @THORACOSCOPY, SURG; W/DX WEDGE RESC W/ANATOMIC LUNG RESC (WRVU 3) performed by Johana Foster MD at [facility] MAIN OR Social History: Home set-up: Lives in a ranch style home with a basement and his partner. Bathroom Set-up: Walk in or tub shower on the main level, usually uses the tub shower. Stairs: ramp to enter. Baseline Mobility: hasn't been driving recently and has been using a cane for ~ 2 weeks. 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 Enjoys 4-wheeling, kayaking and yard work. Equipment [...] Balance, Discharge planning and to call for nursing staff development coordinator assistance with all mobility and needs reinforcement. [...] Code: evaluation LUIS MIGUEL PEREZ, PT Pager: [phone] Physical Therapy Inpatient Rehabilitation Department * Sites, [...] scribe for Dr. Karri Ellis. Anesthesia Staff ([facility]) Patient seen and examined on daily rounds. I agree with the above assessment and plan. [facility] Nurse: Messi Vieira RN Resident:: Jakob Dickerson DO Attending Physician:: Karri Ellis MD * Renu Donald PA - 05/21/2022 8:11 AM EDT Images from the original note were not included. [facility] Department of Thoracic Surgery Inpatient Progress Note Patient Name: Rajan Marquez Patient : 1950 [facility] Attending Surgeon: PARTH FOSTER ID: Rajan Marquez [...] Surgical Unit Level [address] [facility] Office Visit from 04/30/2022 in Thoracic Surgery at [facility] Weight 77.3 kg (170 lb 8 oz) [...] QTC Calculated (Bezet) 492 ms Calculated P Anderson 106 degrees Calculated R Anderson 71 degrees Calculated T Anderson -169 degrees INTERPRETATION Sinus tachycardia Incomplete left bundle block Minimal voltage criteria for LVH, may be normal variant ( [place] product ) Nonspecific ST and T wave [...] Result Value Ref Range Surgical Pathology Report [id number] Location: OR; OR11; A The signing pathologist has (i) examined the relevant preparation(s) for the specimen(s) and (ii) rendered or confirmed the diagnosis(es). . Frozen Section FROZEN SECTION DIAGNOSIS CFS - VISCERAL PLEURAL RIND. FROZEN, excision for frozen section Inflamed pleura, no evidence of malignancy (delivery representative sample) 05/18/22 11:27 Electronically signed by: Malia Lacy MD Verified: 05/18/2022 11:29 Pathologist Performed at: -[facility] Dept. of Pathology, [place] [address] Quality Assurance Monitor Body: Maria Ines Marrufo MD, FCAP, CLIA Certificate: [id number] This intraoperative consultation should be interpreted as [...] MD Verified: 05/18/2022 11:25 Pathologist Performed at: -[facility] Dept. of Pathology, [place] [address] Quality Assurance Monitor Body: Maria Ines Marrufo MD, FCAP, CLIA Certificate: [id number] This intraoperative consultation should be interpreted as [...] Value Ref Range T&S only valid at [facility] Basic Metabolic Panel (non-fasting) Result Value [...] QTC Calculated (Bezet) 454 ms Calculated R Anderson 82 degrees Calculated T Anderson -102 degrees INTERPRETATION Sinus tachycardia with 1st [...] Epidural w/ PCEA per APS recommendations. Tylenol, PAPER BOX MAKER Bupropion Card: May consider increasing Metoprolol to 25mg BID, amiodarone (200mg daily) Pulm: IS/cough/deep breathe/OOB/ambulate. Continue left CT to -20 suction, monitor output. PAPER BOX MAKER spiriva, albuterol FENGI: Stop IVF, Regular diet. RBOs Renal/: Matt in place - will keep until epidural out, monitor UOP Heme: SQH, holding home Xarelto ID: SHELLEY Endo: SHELLEY MSK: PAPER BOX MAKER hydroxychloroquine for synovitis PPx: scds; SQH, Ambulate 4x a day. OOB. Other: Left arm in sling when OOB Dispo: full code, floor status All plans formulated in discussion with and directed by attending thoracic surgeon Dr. Foster. STEVE Peñaloza 05/21/2022 Thoracic Surgery Service Pager [phone] * Devorah Rivera RN - 05/21/2022 4:15 [...] Davis MD - 05/20/2022 7:39 AM EDT [facility] Department of Thoracic Surgery Inpatient Progress Note Patient Name: Rajan Marquez Patient : 1950 Patient Patient Location: [address] [place] [address] Attending Surgeon: PARTH FOSTER ID: Rajan Marquez [...] Surgical Unit Level [address] [facility] Office Visit from 04/30/2022 in Thoracic Surgery at [facility] Weight 75.4 kg (166 lb 3.2 oz) [...] QTC Calculated (Bezet) 492 ms Calculated P Anderson 106 degrees Calculated R Anderson 71 degrees Calculated T Anderson -169 degrees INTERPRETATION Sinus tachycardia Incomplete left bundle block Minimal voltage criteria for LVH, may be normal variant ( [place] product ) Nonspecific ST and T wave [...] Result Value Ref Range Surgical Pathology Report [id number] Location: OR; OR11; A The signing pathologist has (i) examined the relevant preparation(s) for the specimen(s) and (ii) rendered or confirmed the diagnosis(es). . Frozen Section FROZEN SECTION DIAGNOSIS CFS - VISCERAL PLEURAL RIND. FROZEN, excision for frozen section Inflamed pleura, no evidence of malignancy (delivery representative sample) 05/18/22 11:27 Electronically signed by: Malia Lacy MD Verified: 05/18/2022 11:29 Pathologist Performed at: -[facility] Dept. of Pathology, [place] [address] Quality Assurance Monitor Body: Maria Ines Marrufo MD, FCLESLY, CLIA Certificate: [id number] This intraoperative consultation should be interpreted as [...] MD Verified: 05/18/2022 11:25 Pathologist Performed at: -[facility] Dept. of Pathology, [place] [address] Quality Assurance Monitor Body: Maria Ines Marrufo MD, AP, CLIA Certificate: [id number] This intraoperative consultation should be interpreted as [...] Value Ref Range T&S only valid at [facility] Hosp Basic Metabolic Panel (non-fasting) Result Value [...] who have questions please contact the health resident care director that requested your imaging first. Electronically signed by: Maryann Magallanes MD, [facility] ([phone]), at 05/18/2022 4:02 PM Assessment: Rajan Marquez [...] PT consulted. Plan: Neuro: Epidural w/ PCEA. PAPER BOX MAKER bupropion Card: HDS, PAPER BOX MAKER metoprolol, amiodarone (200mg daily) Pulm: IS/cough/deep breathe/OOB/ambulate. Continue left CT to -20 suction, monitor output. PAPER BOX MAKER spiriva, albuterol FENGI: LR @100 ml/hr, Regular diet. RBOs Renal/: Matt in place, monitor UOP Heme: SQH ID: SHELLEY Endo: SHELLEY MSK: PAPER BOX MAKER hydroxychloroquine for synovitis PPx: scds; SQH, Ambulate 4x a day. OOB. Dispo: full code, floor status Vaughn Davis MD 05/20/2022 Thoracic Surgery Service Pager [phone] * Karri Ellis MD - 05/19/2022 9:31 [...] infection. Wewill continue current settings. * Morales Arams MD - 05/19/2022 8:15 AM EST [facility] Department of Thoracic Surgery Inpatient Progress Note Patient Name: Rajan Marquez Patient : 1950 Patient Patient Location: [address] [place] [address] Attending Surgeon: PARTH FOSTER ID: Rajan Marquez [...] Surgical Unit Level [address] [facility] Office Visit from 04/30/2022 in Thoracic Surgery at [facility] Weight 71.5 kg (157 lb 11.2 oz) [...] QTC Calculated (Bezet) 492 ms Calculated P Anderson 106 degrees Calculated R Anderson 71 degrees Calculated T Anderson -169 degrees INTERPRETATION Sinus tachycardia Incomplete left [...] Result Value Ref Range Surgical Pathology Report [id number] Location: OR; OR11; A The signing pathologist has (i) examined the relevant preparation(s) for the specimen(s) and (ii) rendered or confirmed the diagnosis(es). . Frozen Section FROZEN SECTION DIAGNOSIS CFS - VISCERAL PLEURAL RIND. FROZEN, excision for frozen section Inflamed pleura, no evidence of malignancy (delivery representative sample) 05/18/22 11:27 Electronically signed by: Malia Lacy MD Verified: 05/18/2022 11:29 Pathologist Performed at: -[facility] Dept. of Pathology, [place] [address] Quality Assurance Monitor Body: Maria Ines Marrufo MD, FCAP, [place] Certificate: [id number] This intraoperative consultation should be interpreted as [...] Swann Verified: 05/18/2022 11:25 Pathologist Performed at: -[facility] Dept. of Pathology, [place] [id number] Quality Assurance Monitor Body: Maria Ines Marrufo MD, [facility] Certificate: [id number] This intraoperative consultation should be interpreted as [...] Value Ref Range T&S only valid at [facility] Hosp Basic Metabolic Panel (non-fasting) Result Value [...] who have questions please contact the health resident care director that requested your imaging first. Electronically signed by: Maryann Magallanes MD, [facility] ([phone]), at 05/18/2022 4:02 PM Assessment: Rajan Marquez [...] PT consulted. Plan: Neuro: Epidural w/ PCEA. PAPER BOX MAKER bupropion Card: HDS, PAPER BOX MAKER metoprolol, amiodarone (200mg daily) Pulm: IS/cough/deep breathe/OOB/ambulate. Continue left CT to -20 suction, monitor output. PAPER BOX MAKER spiriva, albuterol FENGI: LR @100 ml/hr, Regular diet. RBOs Renal/: Matt in place, monitor UOP Heme: SQH ID: SHELLEY Endo: SHELLEY MSK: PAPER BOX MAKER hydroxychloroquine for synovitis PPx: scds; SQH, Ambulate 4x a day. OOB. Dispo: full code, floor status Morales Armas MD 05/19/2022 Thoracic Surgery Service Pager [phone] * Morales Armas MD - 05/18/2022 3:27 PM EST [facility] Department of Thoracic Surgery Inpatient Post Op Check Patient Name: Rajan Marquez Patient : 1950 Patient Patient Location: [address] Attending Surgeon: PARTH FOSTER ID: Rajan [...] Admission (Current) from 05/18/[address] [facility] OfficeVisit from 04/30/2022 in Thoracic Surgery at [facility] Weight 71.5 kg (157 lb 11.2 oz) [...] QTC Calculated (Bezet) 492 ms Calculated P Anderson 106 degrees Calculated R Anderson 71 degrees Calculated T Anderson -169 degrees INTERPRETATION Sinus tachycardia Incomplete left bundle block Minimal voltage criteria for LVH, may be normal variant ( [place] product ) Nonspecific ST and T wave abnormality Abnormal ECG When compared with ECG of 21-FEB-2022 06:21, Sinus rhythm has replaced Atrial flutter Incomplete left bundle block is now Present Tissue culture Specimen: Lung Left pleural grumous Result Value Ref Range Gram Stain Few Neutrophils seen No microorganisms seen. Surgical Pathology Report Result Value Ref Range Surgical Pathology Report [id number] Location: OR; OR11; A The signing pathologist has (i) examined the relevant preparation(s) for the specimen(s) and (ii) rendered or confirmed the diagnosis(es). . Frozen Section FROZEN SECTION DIAGNOSIS CFS - VISCERAL PLEURAL RIND. FROZEN, excision for frozen section Inflamed pleura, no evidence of malignancy (delivery representative sample) 05/18/22 11:27 Electronically signed by: Malia Lacy MD Verified: 05/18/2022 11:29 Pathologist Performed at: -[facility] Dept. of Pathology, [place] [address] Quality Assurance Monitor Body: Maria Ines Marrufo MD, FCLESLY, CLIA Certificate: [id number] This intraoperative consultation should be interpreted as [...] MD Verified: 05/18/2022 11:25 Pathologist Performed at: -[facility] Dept. of Pathology, [place] [address] Quality Assurance Monitor Body: Maria Ines Marrufo MD, FCAP, CLIA Certificate: [id number] This intraoperative consultation should be interpreted as a preliminary diagnosis pending review of the entire specimen and special studies, if any. A final Surgical Pathology report will follow this preliminary Frozen Section report(s). ABO/Rh Typing Result Value Ref Range ABORh Type A Pos Antibody screen Result Value Ref Range Ab Screen Interp Negative Expires at 5669 on: 05/21/2022 ABORH Recheck Status Result Value Ref Range ABORH Recheck Order Order Placed ABORH Type Recheck Complete Type and Screen Validity Result Value Ref Range T&S only valid at [facility] Basic Metabolic Panel (non-fasting) Result Value [...] who have questions please contact the health resident care director that requested your imaging first. Electronically signed by: Maryann Magallanes MD, Radiology [place] ([phone]), at 05/18/2022 4:02 PM Assessment: Rajan Marquez is a 71 y.o. male who is Day of Surgery s/p robotic, converted to open left thoracotomy and total decortication. He is currently in stable condition and recovering well postoperatively.Post op CXR and labs reviewed. Maintain posterior CT strict suction and use a sling when OOB for left arm Plan: Neuro: Epidural w/ PCEA. PAPER BOX MAKER bupropion Card: HDS, PAPER BOX MAKER metoprolol, amiodarone (200mg daily) Pulm: IS/cough/deep breathe/OOB/ambulate. Continue left CT to -20 suction, monitor output. PAPER BOX MAKER spiriva, albuterol FENGI: LR @100 ml/hr, Regular diet. RBOs Renal/: Matt in place, monitor UOP Heme: SQH ID: SHELLEY Endo: SHELLEY MSK: PAPER BOX MAKER hydroxychloroquine for synovitis PPx: scds; SQH, Ambulate 4x a day. OOB. Dispo: full code, floor status Vaughn Davis MD 05/18/2022 Thoracic Surgery Service Pager [phone] * Missy Abdi RN - 05/18/2022 2:31 [...] in later 1535 Called for CXR 1600 [place] removed Phase II met Feels better After second bolus Seen by Dr Sampson from anesthesia Epidural put to regular settings in light of stable bp and rib removal 1900 comfortable Waiting in line of six rooms that are all dirty 1999 neb tx given Having coffee 2039 report to [facility] 326 is cleaning When room ready, RN [...] IR Thoracentesis Left 11/08/2021 Ramírez Ramirez MD [facility] INTERVENTIONL RAD ??? PRO BRONCHOSCOPY, DIAGNOSTIC N/A 03/29/2021 BRONCHOSCOPY, DIAGNOSTIC (WRVU 2.78) performed by Parth Foster MD at [facility] OR ??? PRO BRONCHOSCOPY, DIAGNOSTIC N/A 02/08/2022 BRONCHOSCOPY, DIAGNOSTIC (WRVU 2.78) performed by Parth Foster MD at [facility] OR ? ? PRO INJECTION ANES AGENT &/ STEROID INTERCOSTAL NERVE SINGLE LEVEL Left 03/29/2021 NERVE BLOCK, INTERCOSTAL NERVE (WRVU 1.18) performed by Parth Foster MD at [facility] MAIN OR ??? PRO THORACOSCOPY SURG LOBECTOMY Left 03/29/2021 @THORACOSCOPY,SURGICAL,W\LOBECTOMY,TOTAL OR SEGMENTAL (WRVU 24.64) performed by Johana Foster MD at [facility] MAIN OR ??? PRO THORACOSCOPY WITH BIOPSY OF PLEURA Left 02/08/2022 THORACOSCOPY; WITH BIOPSY(IES) OF PLEURA (WRVU 4.58) performed by Parth Foster MD at [facility] OR ??? PRO THORACOSCOPY WITH MEDIASTINAL AND REGIONAL LYMPHADENECTOMY 03/29/2021 @THORACOSCOPY, SURG; W/MEDIASTINAL& REGIONAL LYMPHADENECTOMY (WRVU 4.12) performed by Parth Foster MD at [facility] MAIN OR ??? PRO THORACOSCOPY WITH WEDGE RESECTION AND ANATOMIC LUNG RESECTN Left 03/29/2021 @THORACOSCOPY, SURG; W/DX WEDGE RESC W/ANATOMIC LUNG RESC (WRVU 3) performed by Johana Foster MD at [facility] MAIN OR MEDS: No current facility-administered [...] STEVE Sethi 05/18/2022 Thoracic Surgery Service Pager [phone] documented in this encounter Miscellaneous Notes * [...] none Patient is insured through: Primary Insurance: [employer] MANAGED MEDICARE Payor: AAR MANAGED MEDICARE / Plan: [facility] COM[facility] / Product Type: *No Producttype* / Secondary Insurance: N/A Prescription Coverage: Yes This plan was formulated with input from patient and team. All are in agreement with plan. Kenia Sepulveda RN-BSN-CM Pager: [phone] * Plan of Care - Raquel Hoffmann [...] surrogate would be surrogate decision maker per [place] surrogate decision making law. (Only good for 180 days) Any patient receiving care in [place] must abide by [place] law. The hierarchy for surrogate decision making [...] (i) The agent with financial power of mergers and acquisitions attorney or a conservator appointed in accordance [...] Environmental Concerns: Resource/Environmental Concerns: none Current DME: [facility] Home Address confirmed as: [address] [place] [id number] Social & Family Supports: All names listed [...] N/A ; Prescription Coverage: Yes Preferred Pharmacy: [id number] [address] Status: Patient is a : No Primary Care Provider confirmed: Tami Olivia [phone] Patient/Caregiver Goals of Treatment: discharge home Potential Needs for Transition of Care: home health care Agency Referrals: I have met with the patient to: ?? discuss discharge planning needs. ?? provide the [facility], Office of Care Management letter from the Quality Assurance Monitor Body pertaining to rehabreferrals. ?? provide a letter describing our affiliations within the [facility] and educate about their right to choose where referrals are sent. ?? provide a list of Home Health Agencies / Durable Medical Equipment vendors which serve their preferred geographic area. ?? provided patient with [facility] Star Quality Rating handout. They have requested referrals to: [facility]. [address] [place] [id number] Note routed to a Pocket Setter who will communicate referrals to facilities and [...] of care planning. Kenia Sepulveda RN-BSN-CM Pager: [phone] * Initial Assessments - Messi Dooley, OT [...] Thoracentesis Left 11/08/2021 Forauer, Ramírez Ziegler MD [facility] INTERVENTIONL RAD ??? PRO BRONCHOSCOPY, DIAGNOSTIC N/A 03/29/2021 BRONCHOSCOPY, DIAGNOSTIC (WRVU 2.78) performed by Parth Foster MD at [facility] MAIN OR ??? PRO BRONCHOSCOPY, DIAGNOSTIC N/A 02/08/2022 BRONCHOSCOPY, DIAGNOSTIC (WRVU 2.78) performed by Parth Foster MD at [facility] MAIN OR ??? PRO BRONCHOSCOPY, DIAGNOSTIC N/A 05/18/2022 BRONCHOSCOPY, DIAGNOSTIC (WRVU 2.53) performed by Parth Foster MD at [facility] MAIN OR ??? PRO DECORTICATION, PULMONARY, TOTAL Left 05/18/2022 @THORACOTOMY,DECORTICATION, PULMONARY, TOTAL (WRVU 26.65) performed by Parth Foster MD [facility] OR ? ? PRO INJECTION ANES AGENT &/ STEROID INTERCOSTAL NERVE SINGLE LEVEL Left 03/29/2021 NERVE BLOCK, INTERCOSTAL NERVE (WRVU 1.18) performed by Parth Foster MD at [facility] OR ??? PRO RECONSTRUCT INJURED CHEST Left 05/18/2022 @MAJOR RECONSTRUCTION, CHEST WALL (WRVU 22.51) performed by Parth Foster MD at [facility] OR ??? PRO THORACOSCOPY SURG LOBECTOMY Left 03/29/2021 @THORACOSCOPY,SURGICAL,W\LOBECTOMY,TOTAL OR SEGMENTAL (WRVU 24.64) performed by Johana Foster MD at [facility] MAIN OR ??? PRO THORACOSCOPY WITH BIOPSY OF PLEURA Left 02/08/2022 THORACOSCOPY; WITH BIOPSY(IES) OF PLEURA (WRVU 4.58) [facility] ??? PRO THORACOSCOPY WITH MEDIASTINAL AND REGIONAL LYMPHADENECTOMY 03/29/2021 @THORACOSCOPY, SURG; W/MEDIASTINAL& REGIONAL LYMPHADENECTOMY (WRVU 4.12) performed by Parth Foster MD at [facility] MAIN OR ??? PRO THORACOSCOPY WITH WEDGE RESECTION AND ANATOMIC LUNG RESECTN Left 03/29/2021 @THORACOSCOPY, SURG; W/DX WEDGE RESC W/ANATOMIC LUNG RESC (WRVU 3) performed by Johana Foster MD at [facility] MAIN OR Social History: Patient lives [...] ?? WNL / WFL Communication: WFL B [place] (pt reports hearing aids are no longer [...] planning. Total Minutes, Occupational Therapy: 40 (Tomi ([id number])) 2017 OT Evaluation Code Rationale: ?? Diagnosis [...] and measurable assessment of functional outcome. Pager: [phone] Messi Dooley OT 05/21/2022 Occupational Therapy Rehabilitation [...] Jose Manuel Salinas RN RN/CM - Cellphone: [phone] Pager: [phone] Covering Service RN/CM * Plan of Care - Mamta Mccullough RN - 05/19/2022 4:19 PM EST OUTCOME EVALUATION NOTE: OUTCOME SUMMARY: VSS BPs soft (250ml Bolus given) on 2L NC-coughing w/ mild PETERSON; denies CP/N/V; pain well managed with epidural 1-2; dressings intact no INTERLINE CLERK known air leak; making adeq urine; tolerating [...] managed with epidural 1-2; dressings intact no INTERLINE CLERK known air leak; making adeq urine; tolerating [...] Foster MD - 05/18/2022 3:42 PM EST [facility] Operative Note Patient Name: Rajan Marquez : [id number] MR#: [id number] Case Date: 05/18/2022 Surgeon: Surgeon(s) and Role: * Parth Foster MD - Primary * Linda Mustafa PA - Physician Claims Account Specialist * Renu Donald PA - Physician Claims Account Specialist * Morales Armas MD - Resident Preoperative [...] 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 [facility] surgical timeout confirmed the patient's identity [...] muscular attachments and divided with the sliding manager of distribution and then excised in pieces with a [...] muscular attachments and divided with the sliding manager of distribution. This maneuverpermitted a Finochietto rib railroad surveyor to be placed. The remainder of the [...] sharp dissection and cautery dissection, using the Xirrusa mantis device for hemostasis. We worked posteriorly [...] did appear to expand significantly. A 28 Trinidadian chest tube was placed thr ough the camera port and advanced to the apex of the hemithorax and secured. We assessed the defectmade by resection of the fifth and sixth ribs. Because of the concern for scapular trapping, we elected to patch this defect. 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 Left visceral pleural [...] Vascular Unit Level 3 [place] [address] Tiera Goldsmith MD [facility] [place] [address] Scheduled Procedures Name Priority Associated Diagnoses Date/Ti [...] 05/18/2022 10:17 AM EST Reconstruct Injured Chest (73953) 05/18/2022 9:19 AM EST Status post lobectomy of lung MODIFIER RIB RESECTION 05/18/2022 9:19 AM EST Status post lobectomy of lung Bronchoscopy, Diagnostic (58587) 05/18/2022 9:19 AM EST Status post lobectomy of lung Decortication, Pulmonary, Total (57061) 05/18/2022 9:19 AM EST Status post lobectomy [...] who have questions please contact the health resident care director that requested your imaging first. ? Electronically signed by: Savanah Suazo MD, [facility] ([phone]), at 06/11/2022 4:12 PM Narrative 06/11/2022 4:12 [...] patients who have questions please contactthe health resident care director that requested your imaging first. Parth Foster [...] who have questions please contact the health resident care director that requested your imaging first. ? Electronically signed by: Marcus Edwards MD, [facility] ([phone]), at 05/24/2022 10:06 AM Narrative 05/24/2022 10:06 [...] patients who have questions please contactthe health resident care director that requested your imaging first. Electronically signed by: Marcus Edwards MD, [facility]([phone]), at 05/24/2022 10:06 AM Parth Foster MD [...] who have questions please contact the health resident care director that requested your imaging first. ? Electronically signed by: Marcus Edwards MD, [facility] ([phone]), at 05/24/2022 8:58 AM Narrative 05/24/2022 8:58 [...] patients who have questions please contactthe health resident care director that requested your imaging first. Parth Foster MD IMG DX ORDERABLE S * Differential, Automated (05/24/2022 3:36 AM EDT) Neutrophil % 69.4 % [facility] Neutrophil Absolute 4.63 1.70 - 6.10 x10(3)/[facility] LABOR[facility] Lymph % 17.4 % [facility] Lymphocytes Abs 1.2 0.9 - 3.2 x10(3)/[facility] LABOR[facility] Monocyte % 11.1 % [facility] Monocyte Abs 0.7 0.3 - 0.9 x10(3)/[facility] Eos % 1.3 % [facility] Eosinophils Abs 0.1 0.0 - 0.4 x10(3)/[facility] Basophil % 0.7 % [facility] Baso Absolute 0.0 0.0 - 0.1 x10(3)/[facility] LABORATORY Immature Gran % 0.10 % [facility] Comment: Immature granulocytes(IG's)percentage and absolute count will include metamyelocytes, myelocytes, and promyelocytes. Blood smears from CBCs yielding IG's will be scanned manually for concordance. If this scan disagrees with the automated IG or if promyelocytes are noted, a manual differential will be performed. Immature Gran Absolute 0.01 0.00 - 0.04 x10(3)/[facility] LABORATORY Blood 05/24/2022 3:36 AM EDT 05/24/2022 4:02 AM EDT Narrative Resulting Agency Comment Spec In Lab Morales Armas MD HEMATOLOGY ORDERABLE S [facility] [place] [address] * (ABNORMAL) Hemogram (05/24/2022 3:36 AM EDT) White Blood Cell 6.7 4.0 - 9.5 x10(3)/mc L [facility] Red Blood Cell 3.10(L) 4.58 - 5.54 x10(6)/mc L [facility] Hemoglobin 8.1(L) 13.7 - 16.5 g/dL [facility] Hematocrit 25.8(L) 40.5 - 48.5 % [facility] Mean Cell Volume 83.2 82.9 - 93.1 fL [facility] Mean Cell Hemoglobin 26.1(L) 27.5 - 32.1 pg [facility] Mean Cell Hemoglobin Concentration 31.4(L) 32.0 - 35.7 g/dL [facility] Platelet 262 145 - 357 x10(3)/mc L [facility] RDW Standard Deviation 54.4(H) 36.0 - 45.0 fL [facility] RDW coefficient of variation 18.2(H) 11.4 - 13.8 % [facility] Mean Platelet Volume 8.3 7.6 - 12.9 fL [facility] NRBC% auto 0.0 % [facility] NRBC Absolute 0.000 0.000 - 0.000 x10(3)/mc L [facility] Blood 05/24/2022 3:36 AM EDT 05/24/2022 4:02 AM EDT Narrative Resulting Agency Comment Spec In Lab Morales Armas MD HEMATOLOGY ORDERABLE S [facility] [place] [address] * (ABNORMAL) Basic Metabolic Panel (non-fasting) (05/24/2022 3:36 AM EDT) Glucose 99 65 - 199 mg/dL [facility] Comment:Diabetes: >=200 mg/d L plus symptoms Blood Urea Nitrogen 18 10 - 20 mg/dL [facility] Creatinine 0.91 0.80 - 1.50 mg/dL [facility] Sodium 138 135 - 145 mmol/L [facility] Potassium 3.6 3.5 - 5.0 mmol/L [facility] Comment: Please note: ??Patients with WBC >100,000 may have falsely elevated Potassium levels. ??For accurate Potassium quantification in these patients send serum separator tube (gold top) for subsequent determinations. ??Contact the Clinical Chemistry Laboratory if there are any questions. Chloride 104 98 - 107 mmol/L [facility] Carbon Dioxide 25 22 - 31 mmol/L [facility] Anion Gap 9 5 - 15 mmol/L [facility] Calcium 8.3(L) 8.5 - 10.5 mg/dL [facility] Est Glomerular Filtration Rate 90 >=60 mL/min/1. 73 m?? [facility] Comment: This patient's estimated GFR was [...] In Lab Parth Foster MD CHEMISTRY ORDERA BLEBetsy [facility] [place] [address] * XR Chest PA & Lateral (Generic) [...] who have questions please contact the health resident care director that requested your imaging first. ? Electronically signed by: Philip Church MD, [facility] ([phone]), at 05/23/2022 7:33 AM Narrative 05/23/2022 7:33 [...] patients who have questions please contactthe health resident care director that requested your imaging first. Parth Foster MD IMG DX ORDERABLE S * Differential, Automated (05/23/2022 3:52 AM EDT) Neutrophil % 69.8 % [facility] Neutrophil Absolute 4.74 1.70 - 6.10 x10(3)/mcL [facility] Lymph % 18.7 % [facility] Lymphocytes Abs 1.3 0.9 - 3.2 x10(3)/[facility] Monocyte % 10.2 % [facility] Monocyte Abs 0.7 0.3 - 0.9 x10(3)/[facility] Eos % 0.6 % [facility] Eosinophils Abs 0.0 0.0 - 0.4 x10(3)/[facility] Basophil % 0.4 % [facility] Baso Absolute 0.0 0.0 - 0.1 x10(3)/[facility] Immature Gran % 0.30 % [facility] Comment: Immature granulocytes(IG's)percentage and absolute count will include metamyelocytes, myelocytes, and promyelocytes. Blood smears from CBCs yielding IG's will be scanned manually for concordance. If this scan disagrees with the automated IG or if promyelocytes are noted, a manual differential will be performed. Immature Gran Absolute 0.02 0.00 - 0.04 x10(3)/[facility] Blood 05/23/2022 3:52 AM EDT 05/23/2022 4:08 AM EDT Narrative Resulting Agency Comment Spec In Lab Morales Armas MD HEMATOLOGY ORDERABLE S [facility] [place] [address] * (ABNORMAL) Hemogram (05/23/2022 3:52 AM EDT) White Blood Cell 6.8 4.0 - 9.5 x10(3)/mc L [facility] Red Blood Cell 3.13(L) 4.58 - 5.54 x10(6)/mc L [facility] Hemoglobin 8.2(L) 13.7 - 16.5 g/dL [facility] Hematocrit 26.5(L) 40.5 - 48.5 % [facility] Mean Cell Volume 84.7 82.9 - 93.1 fL [facility] Mean Cell Hemoglobin 26.2(L) 27.5 - 32.1 pg [facility] Mean Cell Hemoglobin Concentration 30.9(L) 32.0 - 35.7 g/dL [facility] Platelet 256 145 - 357 x10(3)/mc L [facility] RDW Standard Deviation 55.4(H) 36.0 - 45.0 fL [facility] RDW coefficient of variation 17.9(H) 11.4 - 13.8 % [facility] Mean Platelet Volume 8.3 7.6 - 12.9 fL [facility] NRBC% auto 0.0 % [facility] NRBC Absolute 0.000 0.000 - 0.000 x10(3)/mc L [facility] Blood 05/23/2022 3:52 AM EDT 05/23/2022 4:08 AM EDT Narrative Resulting Agency Comment Spec In Lab Morales Armas MD HEMATOLOGY ORDERABLE S [facility] [place] [address] * Basic Metabolic Panel (non-fasting) (05/23/2022 3:52 AM EDT) Glucose 99 65 - 199 mg/dL [facility] Comment:Diabetes: >=200 mg/d L plus symptoms Blood Urea Nitrogen 14 10 - 20 mg/dL [facility] Creatinine 0.94 0.80 - 1.50 mg/dL [facility] Sodium 135 135 - 145 mmol/L [facility] Potassium 3.6 3.5 - 5.0 mmol/L [facility] Comment: Please note: ??Patients with WBC >100,000 may have falsely elevated Potassium levels. ??For accurate Potassium quantification in these patients send serum separator tube (gold top) for subsequent determinations. ??Contact the Clinical Chemistry Laboratory if there are any questions. Chloride 100 98 - 107 mmol/L [facility] Carbon Dioxide 27 22 - 31 mmol/L [facility] Anion Gap 8 5 - 15 mmol/L [facility] Calcium 8.6 8.5 - 10.5 mg/dL [facility] Est Glomerular Filtration Rate 86 >=60 mL/min/1. 73 m?? [facility] Comment: This patient's estimated GFR [...] Narrative Resulting Agency Comment Spec In Lab Parht Foster MD CHEMISTRY ORDERA BLES [facility] [place] [address] * Differential, Automated (05/22/2022 3:47 AM EDT) Neutrophil % 72.4 % [facility] Neutrophil Absolute 5.30 1.70 - 6.10 x10(3)/[facility] Lymph % 15.2 % [facility] Lymphocytes Abs 1.1 0.9 - 3.2 x10(3)/[facility] Monocyte % 11.1 % [facility] Monocyte Abs 0.8 0.3 - 0.9 x10(3)/[facility] Eos % 0.5 % [facility] Eosinophils Abs 0.0 0.0 - 0.4 x10(3)/[facility] Basophil % 0.4 % [facility] Baso Absolute 0.0 0.0 - 0.1 x10(3)/[facility] Immature Gran % 0.40 % [facility] Comment: Immature granulocytes(IG's)percentage and absolute count will include metamyelocytes, myelocytes, and promyelocytes. Blood smears from CBCs yielding IG's will be scanned manually for concordance. If this scan disagrees with the automated IG or if promyelocytes are noted, a manual differential will be performed. Immature Gran Absolute 0.03 0.00 - 0.04 x10(3)/[facility] Blood 05/22/2022 3:47 AM EDT 05/22/2022 4:15 AM EDT Narrative Resulting Agency Comment Spec In Lab Morales Armas MD HEMATOLOGY ORDERABLE S [facility] [place] [address] * (ABNORMAL) Hemogram (05/22/2022 3:47 AM EDT) White Blood Cell 7.3 4.0 - 9.5 x10(3)/mc L [facility] Red Blood Cell 2.93(L) 4.58 - 5.54 x10(6)/mc L [facility] Hemoglobin 7.6(L) 13.7 - 16.5 g/dL [facility] Hematocrit 24.3(L) 40.5 - 48.5 % [facility] Mean Cell Volume 82.9 82.9 - 93.1 fL [facility] Mean Cell Hemoglobin 25.9(L) 27.5 - 32.1 pg [facility] Mean Cell Hemoglobin Concentration 31.3(L) 32.0 - 35.7 g/dL [facility] Platelet 236 145 - 357 x10(3)/mc L [facility] RDW Standard Deviation 53.4(H) 36.0 - 45.0 fL [facility] RDW coefficient of variation 17.5(H) 11.4 - 13.8 % [facility] Mean Platelet Volume 8.6 7.6 - 12.9 fL [facility] NRBC% auto 0.0 % [facility] NRBC Absolute 0.000 0.000 - 0.000 x10(3)/mc L [facility] Blood 05/22/2022 3:47 AM EDT 05/22/2022 4:15 AM EDT Narrative Resulting Agency Comment Spec In Lab Morales Armas MD HEMATOLOGY ORDERABLE S Performing Organization Address City/[facility]/ZIP Co de Phone Number [facility] [place] [address] * Basic Metabolic Panel (non-fasting) (05/22/2022 3:47 AM EDT) Glucose 101 65 - 199 mg/dL [facility] Comment:Diabetes: >=200 mg/d L plus symptoms Blood Urea Nitrogen 14 10 - 20 mg/dL [facility] Comment:result rechecked-bm Creatinine 0.90 0.80 - 1.50 mg/dL [facility] Sodium 137 135 - 145 mmol/L [facility] Potassium 3.8 3.5 - 5.0 mmol/L [facility] Comment: Please note: ??Patients with WBC >100,000 may have falsely elevated Potassium levels. ??For accurate Potassium quantification in these patients send serum separator tube (gold top) for subsequent determinations. ??Contact the Clinical Chemistry Laboratory if there are any questions. Chloride 102 98 - 107 mmol/L [facility] Carbon Dioxide 26 22 - 31 mmol/L [facility] Anion Gap 9 5 - 15 mmol/L [facility] Calcium 8.5 8.5 - 10.5 mg/dL [facility] Est Glomerular Filtration Rate 91 >=60 mL/min/1. 73 m?? [facility] Comment: This patient's estimated GFR was [...] Lab Parth Foster MD CHEMISTRY ORDERA JOSIE [facility] [place] [address] * EKG 12 Lead (05/21/2022 7:36 AM EDT) Ventricular rate 118 BPM MUSE SYSTEM Atrial Rate 118 BPM MUSE SYSTEM P-R Interval 216 ms MUSE SYSTEM QRS Duration 106 ms MUSE SYSTEM Q-T Interval 324 ms MUSE SYSTEM QTC Calculated (Bezet) 454 ms MUSE SYSTEM Calculated R Anderson 82 degrees MUSE SYSTEM Calculated T Anderson -102 degrees MUSE SYSTEM INTERPRETATION Sinus tachycardia [...] 4:09 AM EDT) Neutrophil % 72.4 % [facility] Neutrophil Absolute 4.83 1.70 - 6.10 x10(3)/[facility] LABORAT[facility] Lymph % 14.5 % [facility] Lymphocytes Abs 1.0 0.9 - 3.2 x10(3)/[facility] Monocyte % 12.3 % [facility] Monocyte Abs 0.8 0.3 - 0.9 x10(3)/[facility] Eos % 0.1 % [facility] Eosinophils Abs 0.0 0.0 - 0.4 x10(3)/[facility] Basophil % 0.4 % [facility] Baso Absolute 0.0 0.0 - 0.1 x10(3)/[facility] LABORATORY Immature Gran % 0.30 % [facility] Comment: Immature granulocytes(IG's)percentage and absolute count will include metamyelocytes, myelocytes, and promyelocytes. Blood smears from CBCs yielding IG's will be scanned manually for concordance. If this scan disagrees with the automated IG or if promyelocytes are noted, a manual differential will be performed. Immature Gran Absolute 0.02 0.00 - 0.04 x10(3)/mcL [facility] Blood 05/21/2022 4:09 AM EDT 05/21/2022 5:00 AM EDT Narrative Resulting Agency Comment Spec In Lab Morales Armas MD HEMATOLOGY ORDERABLE S Performing Organization Address City/[facility]/ZIP Co de Phone Number [facility] [place] [address] * (ABNORMAL) Hemogram (05/21/2022 4:09 AM EDT) White Blood Cell 6.7 4.0 - 9.5 x10(3)/mc L [facility] Red Blood Cell 3.01(L) 4.58 - 5.54 x10(6)/mc L [facility] Hemoglobin 7.9(L) 13.7 - 16.5 g/dL [facility] Hematocrit 25.6(L) 40.5 - 48.5 % [facility] Mean Cell Volume 85.0 82.9 - 93.1 fL [facility] Mean Cell Hemoglobin 26.2(L) 27.5 - 32.1 pg [facility] Mean Cell Hemoglobin Concentration 30.9(L) 32.0 - 35.7 g/dL [facility] Platelet 226 145 - 357 x10(3)/mc L [facility] RDW Standard Deviation 53.6(H) 36.0 - 45.0 fL [facility] RDW coefficient of variation 17.3(H) 11.4 - 13.8 % [facility] Mean Platelet Volume 9.1 7.6 - 12.9 fL [facility] NRBC% auto 0.0 % [facility] NRBC Absolute 0.000 0.000 - 0.000 x10(3)/mc L [facility] Blood 05/21/2022 4:09 AM EDT 05/21/2022 5:00 AM EDT Narrative Resulting Agency Comment Spec In Lab Morales Armas MD HEMATOLOGY ORDERABLE S Performing Organization Address City/[facility]/ZIP Co de Phone Number [facility] [place] [address] * (ABNORMAL) Basic Metabolic Panel (non-fasting) (05/21/2022 4:09 AM EDT) Glucose 84 65 - 199 mg/dL [facility] Comment:Diabetes: >=200 mg/d L plus symptoms Blood Urea Nitrogen 7(L) 10 - 20 mg/dL [facility] Creatinine 0.71(L) 0.80 - 1.50 mg/dL [facility] Sodium 137 135 - 145 mmol/L [facility] Potassium 3.5 3.5 - 5.0 mmol/L [facility] Comment: Please note: ??Patients with WBC >100,000 may have falsely elevated Potassium levels. ??For accurate Potassium quantification in these patients send serum separator tube (gold top) for subsequent determinations. ??Contact the Clinical Chemistry Laboratory if there are any questions. Chloride 103 98 - 107 mmol/L [facility] Carbon Dioxide 27 22 - 31 mmol/L [facility] Anion Gap 7 5 - 15 mmol/L [facility] Calcium 8.7 8.5 - 10.5 mg/dL [facility] Est Glomerular Filtration Rate 97 >=60 mL/min/1. 73 m?? [facility] Comment: This patient's estimated GFR was [...] Lab Parth Foster MD CHEMISTRY ORDERA BLES [facility] [place] [address] * Differential, Automated (05/20/2022 4:08 AM EDT) Neutrophil % 74.7 % [facility] Neutrophil Absolute 5.59 1.70 - 6.10 x10(3)/[facility] LABORAT[facility] Lymph % 12.6 % [facility] Lymphocytes Abs 0.9 0.9 - 3.2 x10(3)/[facility] Monocyte % 11.9 % [facility] Monocyte Abs 0.9 0.3 - 0.9 x10(3)/[facility] Eos % 0.0 % [facility] Eosinophils Abs 0.0 0.0 - 0.4 x10(3)/[facility] Basophil % 0.3 % [facility] Baso Absolute 0.0 0.0 - 0.1 x10(3)/[facility] Immature Gran % 0.50 % [facility] Comment: Immature granulocytes(IG's)percentage and absolute count will include metamyelocytes, myelocytes, and promyelocytes. Blood smears from CBCs yielding IG's will be scanned manually for concordance. If this scan disagrees with the automated IG or if promyelocytes are noted, a manual differential will be performed. Immature Gran Absolute 0.04 0.00 - 0.04 x10(3)/[facility] LAB[facility] Blood 05/20/2022 4:08 AM EDT 05/20/2022 4:48 AM EDT Narrative Resulting Agency Comment Spec In Lab Morales Armas MD HEMATOLOGY ORDERABLE S [facility] [place] [address] * (ABNORMAL) Hemogram (05/20/2022 4:08 AM EDT) White Blood Cell 7.5 4.0 - 9.5 x10(3)/mc L [facility] Red Blood Cell 3.07(L) 4.58 - 5.54 x10(6)/mc L [facility] Hemoglobin 8.0(L) 13.7 - 16.5 g/dL [facility] Hematocrit 25.9(L) 40.5 - 48.5 % [facility] Mean Cell Volume 84.4 82.9 - 93.1 fL [facility] Mean Cell Hemoglobin 26.1(L) 27.5 - 32.1 pg [facility] Mean Cell Hemoglobin Concentration 30.9(L) 32.0 - 35.7 g/dL [facility] Platelet 207 145 - 357 x10(3)/mc L [facility] RDW Standard Deviation 53.7(H) 36.0 - 45.0 fL [facility] RDW coefficient of variation 17.4(H) 11.4 - 13.8 % [facility] Mean Platelet Volume 8.7 7.6 - 12.9 fL [facility] NRBC% auto 0.0 % [facility] NRBC Absolute 0.000 0.000 - 0.000 x10(3)/mc L [facility] Blood 05/20/2022 4:08 AM EDT 05/20/2022 4:48 AM EDT Narrative Resulting Agency Comment Spec In Lab Morales Armas MD HEMATOLOGY ORDERABLE S [facility] [place] [address] * (ABNORMAL) Basic Metabolic Panel (non-fasting) (05/20/2022 4:08 AM EDT) Glucose 99 65 - 199 mg/dL [facility] Comment:Diabetes: >=200 mg/d L plus symptoms Blood Urea Nitrogen 11 10 - 20 mg/dL [facility] Creatinine 0.79(L) 0.80 - 1.50 mg/dL [facility] Sodium 133(L) 135 - 145 mmol/L [facility] Potassium 3.8 3.5 - 5.0 mmol/L [facility] Comment: Please note: ??Patients with WBC >100,000 may have falsely elevated Potassium levels. ??For accurate Potassium quantification in these patients send serum separator tube (gold top) for subsequent determinations. ??Contact the Clinical Chemistry Laboratory if there are any questions. Chloride 102 98 - 107 mmol/L [facility] Carbon Dioxide 23 22 - 31 mmol/L [facility] Anion Gap 8 5 - 15 mmol/L [facility] Calcium 8.3(L) 8.5 - 10.5 mg/dL [facility] Est Glomerular Filtration Rate 94 >=60 mL/min/1. 73 m?? [facility] Comment: This patient's estimated GFR was [...] Lab Parth Foster MD CHEMISTRY ORDERA JOSIE Performing Organization Address City/State/[facility] Co de Phone Number [facility] [place] [address] * XR Chest PA & Lateral (Generic) [...] who have questions please contact the health resident care director that requested your imaging first. ? Electronically signed by: Savanah Suazo MD, [facility] ([phone]), at 05/19/2022 11:16 AM Narrative 05/19/2022 11:16 [...] patients who have questions please contactthe health resident care director that requested your imaging first. Parth Foster MD IMG DX ORDERABLE S * (ABNORMAL) Differential, Automated (05/19/2022 3:31 AM EST) Neutrophil % 80.9 % [facility] Neutrophil Absolute 8.95(H) 1.70 - 6.10 x10(3)/mc L [facility] Lymph % 9.3 % [facility] Lymphocytes Abs 1.0 0.9 - 3.2 x10(3)/mc L [facility] Monocyte % 9.2 % [facility] Monocyte Abs 1.0(H) 0.3 - 0.9 x10(3)/mc L [facility] Eos % 0.0 % [facility] Eosinophils Abs 0.0 0.0 - 0.4 x10(3)/mc L [facility] Basophil % 0.1 % [facility] Baso Absolute 0.0 0.0 - 0.1 x10(3)/mc L [facility] Immature Gran % 0.50 % [facility] Comment: Immature granulocytes(IG's)percentage and absolute count will include metamyelocytes, myelocytes, and promyelocytes. Blood smears from CBCs yielding IG's will be scanned manually for concordance. If this scan disagrees with the automated IG or if promyelocytes are noted, a manual differential will be performed. Immature Gran Absolute 0.05(H) 0.00 - 0.04 x10(3)/ L [facility] Blood 05/19/2022 3:31 AM EST 05/19/2022 3:56 AM EST Narrative Resulting Agency Comment Spec In Lab Morales Armas MD HEMATOLOGY ORDERABLE S Performing Organization Address City/State/[facility] Co de Phone Number [facility] [place] [address] * (ABNORMAL) Hemogram (05/19/2022 3:31 AM EST) White Blood Cell 11.1(H) 4.0 - 9.5 x10(3)/mc L [facility] Red Blood Cell 3.23(L) 4.58 - 5.54 x10(6)/ L [facility] Hemoglobin 8.5(L) 13.7 - 16.5 g/dL [facility] Hematocrit 26.8(L) 40.5 - 48.5 % [facility] Mean Cell Volume 83.0 82.9 - 93.1 fL [facility] Mean Cell Hemoglobin 26.3(L) 27.5 - 32.1 pg [facility] Mean Cell Hemoglobin Concentration 31.7(L) 32.0 - 35.7 g/dL [facility] Platelet 245 145 - 357 x10(3)/mc L [facility] RDW Standard Deviation 52.6(H) 36.0 - 45.0 fL [facility] RDW coefficient of variation 17.3(H) 11.4 - 13.8 % [facility] Mean Platelet Volume 8.4 7.6 - 12.9 fL [facility] NRBC% auto 0.0 % [facility] NRBC Absolute 0.000 0.000 - 0.000 x10(3)/mc L [facility] Blood 05/19/2022 3:31 AM EST 05/19/2022 3:56 AM EST Narrative Resulting Agency Comment Spec In Lab Morales Armas MD HEMATOLOGY ORDERABLE S [facility] [place] [address] * Basic Metabolic Panel (non-fasting) (05/19/2022 3:31 AM EST) Glucose 111 65 - 199 mg/dL [facility] Comment:Diabetes: >=200 mg/d L plus symptoms Blood Urea Nitrogen 13 10 - 20 mg/dL [facility] Creatinine 0.93 0.80 - 1.50 mg/dL [facility] Sodium 135 135 - 145 mmol/L [facility] Potassium 4.8 3.5 - 5.0 mmol/L [facility] Comment: Please note: ??Patients with WBC >100,000 may have falsely elevated Potassium levels. ??For accurate Potassium quantification in these patients send serum separator tube (gold top) for subsequent determinations. ??Contact the Clinical Chemistry Laboratory if there are any questions. Chloride 102 98 - 107 mmol/L [facility] Carbon Dioxide 24 22 - 31 mmol/L [facility] Anion Gap 9 5 - 15 mmol/L [facility] Calcium 8.5 8.5 - 10.5 mg/dL [facility] Est Glomerular Filtration Rate 87 >=60 mL/min/1. 73 m?? [facility] Comment: This patient's estimated GFR was [...] Lab Parth Foster MD CHEMISTRY CARMEN GALINDO [facility] [place] [address] * XR Chest One View (05/18/2022 4:01 [...] who have questions please contact the health resident care director that requested your imaging first. ? Electronically signed by: Maryann Magallanes MD, [facility] [place] ([phone]), at 05/18/2022 4:02 PM Narrative 05/18/2022 4:02 [...] patients who have questions please contactthe health resident care director that requested your imaging first. Parth Foster MD IMG DX ORDERABLE S * (ABNORMAL) Differential, Automated (05/18/2022 2:18 PM EST) Neutrophil % 85.2 % [facility] Neutrophil Absolute 9.74(H) 1.70 - 6.10 x10(3)/mc L [facility] Lymph % 7.3 % [facility] Lymphocytes Abs 0.8(L) 0.9 - 3.2 x10(3)/mc L [facility] Monocyte % 6.8 % [facility] Monocyte Abs 0.8 0.3 - 0.9 x10(3)/mc L [facility] Eos % 0.2 % [facility] Eosinophils Abs 0.0 0.0 - 0.4 x10(3)/mc L [facility] Basophil % 0.2 % [facility] Baso Absolute 0.0 0.0 - 0.1 x10(3)/mc L [facility] Immature Gran % 0.30 % [facility] Comment: Immature granulocytes(IG's)percentage and absolute count will include metamyelocytes, myelocytes, and promyelocytes. Blood smears from CBCs yielding IG's will be scanned manually for concordance. If this scan disagrees with the automated IG or if promyelocytes are noted, a manual differential will be performed. Immature Gran Absolute 0.04 0.00 - 0.04 x10(3)/mc L [facility] Blood 05/18/2022 2:18 PM EST 05/18/2022 2:30 PM EST Narrative Resulting Agency Comment Spec In Lab Morales Armas MD HEMATOLOGY ORDERABLE S [facility] [place] [address] * (ABNORMAL) Hemogram (05/18/2022 2:18 PM EST) White Blood Cell 11.4(H) 4.0 - 9.5 x10(3)/mc L [facility] Red Blood Cell 3.19(L) 4.58 - 5.54 x10(6)/mc L [facility] Hemoglobin 8.4(L) 13.7 - 16.5 g/dL [facility] Hematocrit 26.5(L) 40.5 - 48.5 % [facility] Mean Cell Volume 83.1 82.9 - 93.1 fL [facility] Mean Cell Hemoglobin 26.3(L) 27.5 - 32.1 pg [facility] Mean Cell Hemoglobin Concentration 31.7(L) 32.0 - 35.7 g/dL [facility] Platelet 289 145 - 357 x10(3)/mc L [facility] RDW Standard Deviation 52.3(H) 36.0 - 45.0 fL [facility] RDW coefficient of variation 17.2(H) 11.4 - 13.8 % [facility] Mean Platelet Volume 8.4 7.6 - 12.9 fL [facility] NRBC% auto 0.0 % [facility] NRBC Absolute 0.000 0.000 - 0.000 x10(3)/mc L [facility] Blood 05/18/2022 2:18 PM EST 05/18/2022 2:30 PM EST Narrative Resulting Agency Comment Spec In Lab Morales Armas MD HEMATOLOGY ORDERABLE S [facility] [place] [address] * (ABNORMAL) Basic Metabolic Panel (non-fasting) (05/18/2022 2:18 PM EST) Glucose 117 65 - 199 mg/dL [facility] Comment:Diabetes: >=200 mg/d L plus symptoms Blood Urea Nitrogen 15 10 - 20 mg/dL [facility] Creatinine 0.96 0.80 - 1.50 mg/dL [facility] Sodium 138 135 - 145 mmol/L [facility] Potassium 4.4 3.5 - 5.0 mmol/L [facility] Comment: Please note: ??Patients with WBC >100,000 may have falsely elevated Potassium levels. ??For accurate Potassium quantification in these patients send serum separator tube (gold top) for subsequent determinations. ??Contact the Clinical Chemistry Laboratory if there are any questions. Chloride 106 98 - 107 mmol/L [facility] Carbon Dioxide 22 22 - 31 mmol/L [facility] Anion Gap 10 5 - 15 mmol/L [facility] Calcium 8.3(L) 8.5 - 10.5 mg/dL [facility] Est Glomerular Filtration Rate 84 >=60 mL/min/1. 73 m?? [facility] Comment: This patient's estimated GFR was [...] MD CHEMISTRY ORDERA BLES Performing Organization Address City/[facility]/ZIP Co de Phone Number [facility] [place] [address] * Type and Screen Validity (05/18/2022 1:37 PM EST) T&S only valid at [facility] Comment:This Type and Screen result is only valid at the [facility] Blood 05/18/2022 1:37 PM EST 05/18/2022 1:48 PM EST Narrative Resulting Agency Comment Spec In Lab Parth Foster MD BLOOD BANK LAB O RDERABLES Performing Organization Address [facility] Co de Phone Number [facility] [place] [address] * ABORH Recheck Status (05/18/2022 1:37 PM EST) ABORH Recheck Order Order Placed [facility] ABORH Type Recheck Complete [facility] Blood 05/18/2022 1:37 PM EST 05/18/2022 1:48 PM EST Narrative Resulting Agency Comment Spec In Lab Parth Foster MD BLOOD BANK LAB O RDERABLES Performing Organization Address City/[facility]/ZIP Co de Phone Number [facility] [place] [address] * Antibody screen (05/18/2022 1:37 PM EST) Ab Screen Interp Negative [facility] Expires at [id number] on: 05/21/2022 [facility] Blood 05/18/2022 1:37 PM EST 05/18/2022 1:48 PM EST Narrative Resulting Agency Comment Spec In Lab Parth Foster MD BLOOD BANK LAB O RDERABLES Performing Organization Address City/[facility]/ZIP Co de Phone Number [facility] [place] [address] * ABO/Rh Typing (05/18/2022 1:37 PM EST) ABORH Type A Pos [facility] Blood 05/18/2022 1:37 PM EST 05/18/2022 1:48 PM EST Narrative Resulting Agency Comment Spec In Lab Parth Foster MD BLOOD BANK LAB O RDERABLES [facility] [place] [address] * (ABNORMAL) BLOOD GAS 2 ARTERIAL (05/18/2022 12:41 PM EST) pH, Arterial 7.34(L) 7.35 - 7.45 [facility] PCO2, Arterial 42 35 - 45 mmHg [facility] PO2, Arterial 290(H) 85 - 104 mmHg [facility] Bicarbonate, Arterial 22.2 20.0 - 26.0 mmol/L [facility] Base Excess, Arterial -3.5(L) -3.0 - 3.0 mmol/L [facility] Hgb Blood Gas 9.2(L) 13.7 - 16.5 g/dL [facility] Oxyhemoglobin, Arterial 98.5(H) 94.0 - 97.0 % [facility] Carboxyhemoglob in, Arterial 1.2 % [facility] Comment: Nonsmokers: 0.5-1.5% COHB Smokers: Variable, but usually less than 10% Toxic: 20-30% COHB Lethal: Greater than 60% COHB Methemoglobin, Arterial 0.3 <=1.5 % [facility] Na Whole Blood 133(L) 135 - 145 mmol/L [facility] K Whole Blood 4.2 3.5 - 5.0 mmol/L [facility] Comment: Please note: Patients with WBC >100,000 may have falsely elevated Potassium levels. Contact the Clinical Chemistry Laboratory if there are any questions. ICa Whole Blood 1.16 1.15 - 1.33 mmol/L [facility] Comment: Note: ??Total bilirubin higher than 20 mg/dL may lead to falsely low ionized calcium. CL Whole Blood 104 98 - 107 mmol/L [facility] Gluc Whole Bld 130 65 - 199 mg/dL [facility] Comment:Diabetes: >=200 mg/d L plus symptoms. Lactate WB 1.0 0.5 - 2.2 mmol/L [facility] FIO2 Art 50 % [facility] Flow Art 1.0 LPM [facility] PF Ratio Art 580 [facility] Blood 05/18/2022 12:4 1 PM EST 05/18/2022 12:41 PM EST Parth Foster MD POINT OF CARE TE ST ORDERABLES [facility] [place] [address] * Specimen to Pathology (05/18/2022 11:21 AM EST) AP Specimen 05/18/2022 11:2 1 AM EST 05/18/2022 11:21 AM EST Narrative [facility] - 05/18/2022 11:21 AM EST Specimen requisition ordered. ??Separate Pathology report to follow Parth Foster MD PATHOLOGY/CYTOLO GY ORDERABLES Performing Organization Address [facility] Co de Phone Number [facility] [place] [address] * Specimen to Pathology (05/18/2022 10:56 AM EST) AP Specimen 05/18/2022 10:5 6 AM EST 05/18/2022 10:56 AM EST Narrative [facility] - 05/18/2022 10:56 AM EST Specimen requisition ordered. ??Separate Pathology report to follow Parth Foster MD PATHOLOGY/CYTOLO GY ORDERABLES [facility] [place] [address] * Specimen to Pathology (05/18/2022 10:37 AM EST) AP Specimen 05/18/2022 10:3 7 AM EST 05/18/2022 10:37 AM EST Narrative [facility] - 05/18/2022 10:37 AM EST Specimen requisition ordered. ??Separate Pathology report to follow Parth Foster MD PATHOLOGY/CYTOLO GY ORDERABLES Performing Organization Address [facility] Co de Phone Number [facility] [place] [address] * Specimen to Pathology (05/18/2022 10:36 AM EST) AP Specimen 05/18/2022 10:3 6 AM EST 05/18/2022 10:36 AM EST Narrative [facility] - 05/18/2022 10:36 AM EST Specimen requisition ordered. ??Separate Pathology report to follow Parth Foster MD PATHOLOGY/CYTOLO GY ORDERABLES Performing Organization Address [facility] [place] [place] [address] * Specimen to Pathology (05/18/2022 10:36 AM EST) AP Specimen 05/18/2022 10:3 6 AM EST 05/18/2022 10:36 AM EST Narrative [facility] - 05/18/2022 10:36 AM EST Specimen requisition ordered. ??Separate Pathology report to follow Parth Foster MD PATHOLOGY/CYTOLO GY ORDERABLES Performing Organization Address [facility] Co de Phone Number [facility] [place] [address] * Anaerobic Culture (05/18/2022 10:35 AM EST) Anaerobic Culture No anaerobic organisms isolated [facility] Lung 05/18/2022 10:3 5 AM EST 05/18/2022 2:17 PM EST Comment:Left pleural grumous Narrative Resulting Agency Comment Spec In Lab Parth Foster MD MICROBIOLOGY - G ENERAL ORDERABLES Performing Organization Address [facility] Co de Phone Number [facility] [place] [address] * Tissue culture (05/18/2022 10:35 AM EST) Tissue Culture No growth [facility] Gram Stain Few Neutrophils seen No microorganisms seen. [facility] Lung 05/18/2022 10:3 5 AM EST 05/18/2022 2:17 PM EST Comment:Left pleural grumous Narrative Resulting Agency Comment Spec In Lab Parth Foster MD MICROBIOLOGY - G ENERAL ORDERABLES [facility] [place] [address] * Surgical Pathology Report (05/18/2022 10:19 AM EST) Final Diagnosis [id number] ? Location: L3WD; 0326; B The signing [...] Soriano Verified: ??06/04/2022 14:52 ??Pathologist Performed at: ??-[facility] Dept. of Pathology, [place] [address] Quality Assurance Monitor Body: Maria Ines Marrufo MD, FCAP, ??CLIA Certificate: [id number] SPECIMEN(S) SUBMITTED A - Left pleural rind, [...] tissue is submitted for frozen section: A1. Doughnut Batter Mixer sections in 3 cassettes as follows: ?A1: ??Frozen section remnant ?A2-A3: ??Doughnut Batter Mixer sections B - Labeled/Fixative: Left pleural grumous, fresh. Quantity/Size: Fragments, 7.0 x 5.0 x 1.0 cm in aggregate. Tissue Description: Multiple soft rubbery fragments of white tissue. Sections/Processin g: Doughnut Batter Mixer sections in 2 cassettes labeled B1-B2. C - Labeled/Fixative: Visceral pleural rind. Frozen, fresh for frozen section. Quantity/Size: Single, 2.7 x 1.9 x 0.2 cm. Tissue Description: Serrato-white membranous soft tissue. Sections/Processin g: The following tissue is submitted for frozen section: C1. Doughnut Batter Mixer sections in 2 cassettes as follows: ?C1: ??Frozen section remnant ?C2: ??Doughnut Batter Mixer sections D - Labeled/Fixative: Fragments of rib, fresh. Quantity/Size: Fragments, 9.0 x 9.0 x 2.0 cm in aggregate. Tissue Description: Multiple fragments of rib and surrounding connective tissue. Sections/Processin g: Blocks submitted for decalcification: D1. Doughnut Batter Mixer sections in 1 cassette labeled D1. E - Labeled/Fixative: Left parietal pleural rind, fresh. Quantity/Size: Fragments, 12.5 x 12.5 x 2.0 cm in aggregate. Tissue Description: Multiple fragments of firm rubbery serrato-white tissue with surrounding adipose tissue. Sections/Processin g: Doughnut Batter Mixer sections in 2 cassettes labeled E1-E2. F - Labeled/Fixative: Left visceral pleural rind, fresh. Quantity/Size: Fragments, 9.0 x 5.0 x 2.0 cm in aggregate. Tissue Description: Fragments of firm rubbery serrato-white tissue. Sections/Processin g: Doughnut Batter Mixer sections in 2 cassettes labeled F1-F2. ??jnk ?Frozen Section FROZEN SECTION DIAGNOSIS CFS - VISCERAL PLEURAL RIND. FROZEN, excision ?for frozen section Inflamed ??pleura, no evidence of malignancy (delivery representative sample) 05/18/22 11:27 Electronically signed by: ?Malia Lacy MD Verified: ??05/18/2022 11:29 ??Pathologist Performed at: ??-[facility] Dept. of Pathology, [place] [address] Quality Assurance Monitor Body: Maria Ines Marruof MD, FCAP, ??CLIA Certificate: [id number] This intraoperative consultation should be interpreted as [...] MD Verified: ??05/18/2022 11:25 ??Pathologist Performed at: ??-[facility] Dept. of Pathology, [place] [address] Quality Assurance Monitor Body: Maria Ines Marrufo MD, FCAP, ??CLIA Certificate: [id number] This intraoperative consultation should be interpreted as a preliminary diagnosis pending review of the entire specimen and special studies, if any. A final Surgical Pathology report will follow this preliminary Frozen Section report(s). 06/04/2022 2:52 PM EDT [facility] Frozen Specimen 05/18/2022 1 0:19 [...] EST Parth Foster MD PATHOLOGY/CYTOLO GY ORDERABLES [facility] [address] [place] [address] * Specimen to Pathology (05/18/2022 10:19 AM EST) AP Specimen 05/18/2022 10:1 9 AM EST 05/18/2022 10:19 AM EST Narrative [facility] - 05/18/2022 10:19 AM EST Specimen requisition ordered. ??Separate Pathology report to follow Parth Foster MD PATHOLOGY/CYTOLO GY ORDERABLES [facility] [place] [address] * (ABNORMAL) BLOOD GAS 2 ARTERIAL (05/18/2022 10:17 AM EST) pH, Arterial 7.36 7.35 - 7.45 [facility] PCO2, Arterial 42 35 - 45 mmHg [facility] PO2, Arterial 226(H) 85 - 104 mmHg [facility] Bicarbonate, Arterial 22.9 20.0 - 26.0 mmol/L [facility] Base Excess, Arterial -2.6 -3.0 - 3.0 mmol/L [facility] Hgb Blood Gas 9.5(L) 13.7 - 16.5 g/dL [facility] Oxyhemoglobin, Arterial 98.5(H) 94.0 - 97.0 % [facility] Carboxyhemoglob in, Arterial 1.0 % [facility] Comment: Nonsmokers: 0.5-1.5% COHB Smokers: Variable, but usually less than 10% Toxic: 20-30% COHB Lethal: Greater than 60% COHB Methemoglobin, Arterial 0.3 <=1.5 % [facility] Na Whole Blood 133(L) 135 - 145 mmol/L [facility] K Whole Blood 3.8 3.5 - 5.0 mmol/L [facility] Comment: Please note: Patients with WBC >100,000 may have falsely elevated Potassium levels. Contact the Clinical Chemistry Laboratory if there are any questions. ICa Whole Blood 1.18 1.15 - 1.33 mmol/L [facility] Comment: Note: ??Total bilirubin higher than 20 mg/dL may lead to falsely low ionized calcium. CL Whole Blood 104 98 - 107 mmol/L [facility] Gluc Whole Bld 107 65 - 199 mg/dL [facility] Comment:Diabetes: >=200 mg/d L plus symptoms. Lactate WB 1.5 0.5 - 2.2 mmol/L [facility] Blood 05/18/2022 10:1 7 AM EST 05/18/2022 10:17 AM EST Parth Foster MD POINT OF CARE TE ST ORDERABLES [facility] [place] [address] * XR Fluoro No Rad <1Hr - [...] (Bezet) 492 ms MUSE SYSTEM Calculated P Anderson 106 degrees MUSE SYSTEM Calculated R Anderson 71 degrees MUSE SYSTEM Calculated T Anderson -169 degrees MUSE SYSTEM INTERPRETATION Atrial flutter Non-specific intra-ventricular conduction delay Minimal voltage criteria for LVH, may be normal variant ( [place] product ) Nonspecific ST and T wave abnormality Abnormal ECG When compared with ECG of 21-FEB-2022 06:21, No significant change was found I personally reviewed the tracing and edited the fellows interpretation Confirmed by fellow Rudi Guzmán ([id number]) on 05/21/2022 4:25:34 AM Confirmed by MD YOCASTA, DANIELLE ([id number]) on 05/21/2022 10:56:00 AM MUSE SYSTEM 05/18/2022 8:00 AM EST 05/21/2022 10:56 AM EDT Parth Foster MD ECG ORDERABLES MUSE SYSTEM * POCT Glucose (05/18/2022 7:29 AM EST) Glucose, POC 93 65 - 199 mg/dL [facility] Comment: Supplemental ranges: <140 mg/dL before meals <180 mg/dL all other times of the day Blood 05/18/2022 7:29 AM EST 05/18/2022 7:29 AM EST Parth Foster MD POINT OF CARE TE ST ORDERABLES [facility] [place] [address] documented in this encounter Visit Diagnoses Diagnosis [...] medications are indicated., Recovery (Recovery-Hospital Unit), Routine 6369 (Given - Provider: Devorah Rivera RN)0104 (Not Given - Provider: Maribell Farias RN [...] Routine 1309 (Given - Provider: Maribell Farias RN)2132 (Given - Provider: Raquel Hoffmann) hydrOXYchloroQUINE (Plaquenil) tablet 200 mg 200 mg, Oral, DAILY, First dose on Sat05/19/22 at 0900, Until Discontinued, Routine 09 (Given - Provider: Maribell Farias RN) 101 (Given - Provider: Maribell Farias RN) 901 (Given - Provider: Deysi Motta RN) metoproloL tartrate (Lopressor) tablet 25 mg 25 mg, Oral, EVERY 12 HOURS SCHEDULED (2 times per day), First dose on Sat05/21/22 at 0915, Until Discontinued, Routine 09 (Given - Provider: Maribell Farias RN)2141 (Given - Provider: Sandro Newton, CHRISTINA) 1013 (Given - Provider: Maribell Farias RN)2131 (Given - Provider: Raquel Hoffmann) 09 (Given - Provider: Deysi Motta RN) potassium chloride ER (Klor-Con M) tablet 20 mEq (COMPLETED) 20 mEq, Oral, ONCE, 1 dose, On Sat05/22/22 at 0815, 20 mEq tablet may be dissolved in water for administration, Routine 09 (Given - Provider: Maribell Farias RN) senna [...] 2100, Until Discontinued, Recovery (Recovery-Hospital Unit), Routine 09 (Given - Provider: Maribell Farias RN)2144 (Given - Provider: Sandro Newton RN) 1013 (Given - Provider: Maribell Farias RN)2133 (Given - Provider: Raquel Hoffmann) 09 (Given - Provider: Deysi Motta RN) tamsulosin (Flomax) capsule 0.4 mg 0.4 mg, Oral, DAILY, First dose on Sat05/19/22 at 0900, Until Discontinued, DO NOT CRUSH OR OPEN, Routine 0938 (Given - Provider: Maribell Farias, CHRISTINA) 1014 (Given - Provider: Maribell Farias RN) 09 (Given - Provider: Deysi Motta, RN) tiotropium bromide (Spiriva Respimat) 2.5 mcg/actuation inhaler 2 puff 2 puff, Inhalation, DAILY, First dose on Sat05/18/22 at 2000, Until Discontinued, Must be primed prior to first administration, Routine 0938 (Given - Provider: Maribell Farias RN) 1014 (Given - Provider: Maribell Farias RN) 09 (Given - Provider: Deysi Motta, CHRISTINA) Continuous Medication Order 05/22/2022 05/23/2022 [...] Intravenous, EVERY 6 HOURS PRN, Starting on Tu05/22/22 at 1345, Until Stephanie 05/24/22 at 1701, Nausea, Routine 1403 (Given - Provider: Maribell Farias RN) sodium chloride 0.9 % (flush) (BD PosiFlush Normal Saline 0.9) flush 5-20 mL 5-20 mL, Intravenous, EVERY 1 MIN PRN, Starting on 05/18/22 at 1932, Until Stephanie [...] Unit) documented in this encounter Care Teams Certified Midwife Relationship Specialty Start Date End Date Tami Olivia [address] [place] [address] PCP - General Family Medicine 12/30/20 documented as of this encounter
--- OUTSIDE RECORDS SUMMARY | 2023-12-11 22:59 | XMS_ITS | Encounter Summary ---
Author Organization [facility] [place] [address] Care Team Providers Care Encoding Machine Operator Name Role Phone Tami Olivia Primary Care Provider [phone] Encounter Details Date Type Department Care Team (Late st Contact Info) Description 04/27/2022 [place] [address] Anayeli Brown Social History Tobacco Use Types [...] - 04/27/2022 11:31 AM EST Copied from [facility] #[id number]. Topic: Specialty Dept CRMs - Generic Call [...] Vascular Unit Level 3 [place] [address] Tiera Goldsmith MD [facility] [place] [address] Scheduled Procedures Name Priority Associated Diagnoses Date/Ti me ELECTROPHYSIOLOGY PROCEDURE Persistent atrial fibrillation CARDIOVERSION-ELECTIVE (WRVU 2) persistent atrial fibrillation TRANSESOPHAGEAL ECHOCARDIOGR AM (WRVU 2.3) persistent atrial fibrillation documented as of this encounter Visit Diagnoses Not on filedocumented in this encounter Care Teams Encoding Machine Operator Relationship Specialty Start Date End Date Tami Olivia [address] [place] [address] PCP - General Family Medicine 12/30/20 documented as of this encounter
--- OUTSIDE RECORDS SUMMARY | 2023-12-11 22:59 | XMS_ITS | Encounter Summary ---
Author Organization [facility] Address [facility] [place] [address] Care Team Providers Care Account Manager Trainee Name Role Phone Tami Olivia Primary Care Provider [phone] Encounter Details Date Type Department Care Team (Late st Contact Info) Description 05/18/2022 Interpretation Only Radiology [address] [place] [address] [place] [address] Unknown None Social History Tobacco Use Types [...] Vascular Unit Level 3 [place] [address] Tiera Goldsmith MD [facility] [place] [address] Scheduled Procedures Name Priority Associated Diagnoses Date/Ti [...] on filedocumented in this encounter Care Teams Account Manager Trainee Relationship Specialty Start Date End Date Aldair-Tami Paz [address] [place] [address] PCP - General Family Medicine 12/30/20 documented as of this encounter
--- OUTSIDE RECORDS SUMMARY | 2023-12-11 22:59 | XMS_ITS | Encounter Summary ---
Author Organization [facility] Address [facility] [place] [address] Care Team Providers Care Exploration Geologist Name Role Phone Tami Olivia Primary Care Provider [phone] Reason for Visit * Reason Onset Date Comments Post Procedure Call 02/26/2022 Encounter Details Date Type Department Care Team (Late st Contact Info) Description 02/26/2022 Telephone [place] [phone] Megan Reza, RN Post Procedure Call Social [...] Vascular Unit Level 3 [place] [address] Tiera Goldsmith MD [facility] [place] [address] Scheduled Procedures Name Priority Associated Diagnoses Date/Ti me ELECTROPHYSIOLOGY PROCEDURE Persistent atrial fibrillation CARDIOVERSION-ELECTIVE (WRVU 2) persistent atrial fibrillation TRANSESOPHAGEAL ECHOCARDIOGR AM (WRVU 2.3) persistent atrial fibrillation documented as of this encounter Visit Diagnoses Not on filedocumented in this encounter Care Teams Exploration Geologist Relationship Specialty Start Date End Date Tami Olivia [address] [place] [address] PCP - General Family Medicine 12/30/20 documented as of this encounter
--- OUTSIDE RECORDS SUMMARY | 2023-12-11 22:59 | XMS_ITS | Encounter Summary ---
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 Procedures CT Chest w Contrast Gilmer Gutiérrez MD [facility] [place] [address] [facility] [place] [address] Referral ID Status Reason Start Date Expiration Date V isits Requested Visits Authorized [id number] Closed Specialty Service Requested 03/06/2022 09/05/2023 1 1 Reason for Visit * Reason Comments Follow-up Encounter Details Date Type Department Care Team (Late st Contact Info) Description 03/06/2022 1:00 PM EST Office Visit [place] [address] Gilmer Gutiérrez MD [facility] [place] [address] Pleural effusion; Squamous cell carcinoma [...] Vascular Unit Level 3 [place] [address] Tiera Goldsmith MD [facility] [place] [address] Scheduled Procedures Name Priority Associated Diagnoses Date/Ti [...] questions please contact the health health care manager that requested your imaging first. ? Electronically signed by: Maryann Magallanes MD, [facility] ([phone]), at 04/16/2022 7:31 PM Narrative 04/16/2022 7:31 [...] have questions please contactthe health health care manager that requested your imaging first. 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
--- OUTSIDE RECORDS SUMMARY | 2023-12-11 22:59 | XMS_ITS | Encounter Summary ---
Author Organization [facility] Address [facility] [place] [address] Care Team Providers Care Environmental Compliance Inspector Name Role Phone Tami Olivia Primary Care Provider [phone] Encounter Details Date Type Department Care Team (Latest Contact Info) Description 04/30/2022 1:50 PM EST - 04/30/2022 11:59 PM EST Hospital Encounter Pulmonology at [facility] [place] [phone] Pleural effusion; Squamous cell carcinoma of left [...] Vascular Unit Level 3 [place] [address] Tiera Goldsmith MD [facility] [address] Scheduled Procedures Name Priority Associated Diagnoses Date/Ti [...] / FVC LLN 62 % COMPAS PFT [id number] Actual Pre-BD 1.42 L/s COMPAS PFT QXP28-99 Pre-BD % of Predicted 64 % COMPAS PFT [id number] Predicted 2.21 L/s COMPAS PFT CZV63-65 Pre-BD Z-Score -0.94 COMPAS PFT DLCO Hb [...] status documented in this encounter Care Teams Environmental Compliance Inspector Relationship Specialty Start Date End Date Tami Olivia [address] [place] [address] PCP - General Family Medicine 12/30/20 documented as of this encounter
--- OUTSIDE RECORDS SUMMARY | 2023-12-11 22:59 | XMS_ITS | Encounter Summary ---
Author Organization [facility] Address [facility] [place] [address] Care Team Providers Care Timber Framer Name Role Phone Tami Olivia Primary Care Provider [phone] Encounter Details Date Type Department Care Team (Late st Contact Info) Description 05/15/2022 Telephone Thoracic Surgery at [facility] [place] [address] Megan Reza RN Social History Tobacco Use [...] Vascular Unit Level 3 [place] [phone] Tiera Goldsmith MD [facility] [place] [address] Scheduled Procedures Name Priority Associated Diagnoses Date/Ti va ELECTROPHYSIOLOGY PROCEDURE Persistent atrial fibrillation CARDIOVERSION-ELECTIVE (WRVU 2) persistent atrial fibrillation TRANSESOPHAGEAL ECHOCARDIOGR AM (WRVU 2.3) persistent atrial fibrillation documented as of this encounter Visit Diagnoses Not on filedocumented in this encounter Care Teams Timber Framer Relationship Specialty Start Date End Date Tami Olivia [address] [place] [address] PCP - General Family Medicine 12/30/20 documented as of this encounter
--- OUTSIDE RECORDS SUMMARY | 2023-12-11 22:59 | XMS_ITS | Encounter Summary ---
Author Organization [facility] Address [facility] [place] [address] Care Team Providers Care Metal Miner Blasting Name Role Phone Tami Olivia Primary Care Provider [phone] Encounter Details Date Type Department Care Team [...] Vascular Unit Level 3 [place] [address] [facility] [place] [address] Scheduled Procedures Name Priority Associated Diagnoses Date/Ti me ELECTROPHYSIOLOGY PROCEDURE Persistent atrial fibrillation CARDIOVERSION-ELECTIVE (WRVU 2) persistent atrial fibrillation TRANSESOPHAGEAL ECHOCARDIOGR AM (WRVU 2.3) persistent atrial fibrillation documented as of this encounter Visit Diagnoses Not on filedocumented in this encounter Care Teams Metal Miner Blasting Relationship Specialty Start Date End Date Tami Olivia [address] [place] [address] PCP - General Family Medicine 12/30/20 documented as of this encounter
--- OUTSIDE RECORDS SUMMARY | 2023-12-11 22:59 | XMS_ITS | Encounter Summary ---
Author Organization [facility] Address [facility] [place] [address] Care Team Providers Care Carbon Furnace Operator Name Role Phone Tami Olivia Primary Care Provider [phone] Reason for Visit * Reason Comments Follow-up Encounter Details Date Type Department Care Team (Late st Contact Info) Description 04/30/2022 3:00 PM EST Office [place] [address] Gilmer Gutiérrez MD [facility] [place] [address] Primary squamous cell carcinoma of upper lobe [...] the surgeon to operate in small and xatk-bu-bhplw places in the chest cavity, and to [...] stay. You may bring your cellphone, and billing specialist, pajama pants and shirts, under garments, comfy [...] Follow Up Note MD Mendy Fischer PA-C [place] [address] Reason for Visit: Follow up after PFTs [...] Moreland PA-C 04/30/22 Dept of Thoracic Surgery [facility] * Gilmer Gutiérrez MD - 04/30/2022 3:00 [...] Unit Level 3 [place] [address] Tiera Goldsmith MD [facility] [place] [address] Scheduled Procedures Name Priority Associated Diagnoses Date/Ti me ELECTROPHYSIOLOGY PROCEDURE Persistent atrial fibrillation CARDIOVERSION-ELECTIVE (WRVU 2) persistent atrial fibrillation TRANSESOPHAGEAL ECHOCARDIOGR AM (WRVU 2.3) persistent atrial fibrillation documented as of this encounter Visit Diagnoses Diagnosis 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
--- OUTSIDE RECORDS SUMMARY | 2023-12-11 22:59 | XMS_ITS | Encounter Summary ---
Author Organization [facility] Address [facility] [place] [address] Care Team Providers Care Plodding Machine Operator Name Role Phone Tami Olivia Primary Care Provider [phone] Encounter Details Date Type Department Care Team (Late st Contact Info) Description 05/19/2022 11:59 PM EST Anesthesia Event Surgical Unit Level 3 [place] [address] Karri Ellis MD [facility] DR [place] [address] Anesthesia Record Procedure Summary Procedure Name Responsible [...] Vascular Unit Level 3 [place] [address] Tiera Goldsmith MD [facility] [place] [address] Scheduled Procedures Name Priority Associated Diagnoses Date/Ti me ELECTROPHYSIOLOGY PROCEDURE Persistent atrial fibrillation CARDIOVERSION-ELECTIVE (WRVU 2) persistent atrial fibrillation TRANSESOPHAGEAL ECHOCARDIOGR AM (WRVU 2.3) persistent atrial fibrillation documented as of this encounter Visit Diagnoses Not on filedocumented in this encounter Care Teams Plodding Machine Operator Relationship Specialty Start Date End Date Tami Olivia [address] [place] [address] PCP - General Family Medicine 12/30/20 documented as of this encounter
--- OUTSIDE RECORDS SUMMARY | 2023-12-11 22:59 | XMS_ITS | Encounter Summary ---
Author Organization [facility] Address [facility] [place] [address] Care Team Providers Care Syrup Blender Name Role Phone Tami Olivia Primary Care Provider [phone] Encounter Details Date Type Department Care Team (Late st Contact Info) Description 04/16/2022 3:45 PM EST Office Visit Thoracic Surgery at [facility] [place] [address] Gilmer Gutiérrez MD [facility] [place] [address] Pleural effusion; Squamous cell carcinoma of left [...] Consultation Note MD Yosef Blanco. ASHLEY Butcher [place], [place] [address] Reason for Visit: Follow up HPI: Rajan [...] Dr. Gutiérrez. STEVE Lenz 04/16/2022 Thoracic Surgery [facility] * Gilmer Gutiérrez MD - 04/16/2022 3:45 [...] robotic decortication with likely left thoracotomy decortication GILMER GUTIÉRREZ MD documented in this encounter Plan of Treatment Upcoming Encounters Date Type Department Care Team (Late st Contact Info) Description 12/12/2023 Hospital Encounter Heart and Vascular Unit Level 3 [place] [address] Tiera Goldsmith MD [facility] [place] [address] Scheduled Procedures Name Priority Associated Diagnoses Date/Ti [...] / FVC LLN 62 % COMPAS PFT GVI79-51 Actual Pre-BD 1.42 L/s COMPAS PFT OUF48-83 Pre-BD % of Predicted 64 % COMPAS PFT BFC66-83 Predicted 2.21 L/s COMPAS PFT SHA81-72 Pre-BD Z-Score -0.94 COMPAS PFT DLCO Hb [...] status documented in this encounter Care Teams Syrup Blender Relationship Specialty Start Date End Date Kobejayce-Tami Paz [address] [place] [address] PCP - General Family Medicine 12/30/20 documented as of this encounter
--- OUTSIDE RECORDS SUMMARY | 2023-12-11 22:59 | XMS_ITS | Encounter Summary ---
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 Procedures PRO THORACOSCOPY SURG TOT PULM DECORT @ROBOT XI THORACOSCOPY,SURG; W TOTAL DECORTICATION (WRVU 29.13) Gilmer Gutiérrez MD [facility] [place] [address] [facility] Referral ID Status Reason Start Date Expiration Date Visits Re quested Visits Authorized [id number] 1 1 Encounter Details Date Type Department Care Team (Late st Contact Info) Description 05/18/2022 9:21 AM EST Anesthesia [place] [address] Mary Wagoner MD [facility] [place] [address] Jakob Dickerson DO [facility] [place] [address] Anesthesia Record Procedure Summary Procedure Name Responsible [...] 0733; median cubital vein (antecubital fossa), right; hsdx-ggo-kkktoi catheter system; Anatomical Landmarks; 22 gauge; Beth Rodriguez RN; tolerated well; site symptomatic; 05/22/22; 2200 05/18/22 0733 by Nancy Young RN 05/22/22 2200 by Sandro Newton RN Epidural 05/18/22; 0847; thoracic; loss 6, tip T5, 15+cm skin; Dr. lElis and Dr. Rosenberg; analgesia, continuous infusion; catheter [...] dependent drainage; 05/24/22; 0800 05/18/22 0936 by aSnket Murphy RN 05/24/22 0800 by Debbie Traore LNA (RETIRED) Peripheral IV Line - Single Lumen 05/18/22; 0936; dorsal arch vein (top of hand), left; tnxy-irf-beabts catheter system; Anatomical Landmarks; 16 gauge; nickie; [...] Procedure Summary Date: 05/18/22 Room / Location: [facility] OR [facility] MAIN OR Anesthesia Start: 920 Anesthesia Stop: 1407 Procedures: @THORACOTOMY,DECORTICATION, PULMONARY, TOTAL (WRVU 26.65) (Left: Chest) BRONCHOSCOPY, DIAGNOSTIC (WRVU 2.53) MODIFIER RIB RESECTION (Left) @MAJOR RECONSTRUCTION, CHEST WALL (WRVU 22.51) (Left: Chest) Diagnosis: Status post lobectomy of lung (fibrothorax) Surgeons: Gilmer Gutiérrez MD Responsible Provider: Mary Wagoner MD Anesthesia Type: general ASA Status: 3 All Anesthesia Providers: Anesthesiologist: Mary Wagoner MD Meat Slicer: Sloan Rosa MD Vitals Value Taken Time BP Temp Pulse Resp SpO2 Pain Level Patient Location: PACU/[facility] [...] End time: 05/18/2022 9:19 AM Baseline Information ([id number] entry for database use): HTN: Yes Patient [...] AP/lateral epidurogram obtained. Patient was transported to [facility] procedure by president and chief commercial officer in stable condition. Soil Engineer (Caleb) Georgette was present for the entire procedure. PA and Lateral dye study confirmed correct epidural location. Resident/ELECTRO MECHANICAL ENGINEER: Second Resident/ELECTRO MECHANICAL ENGINEER: SRNA: Fellow: Belkis Rosenberg MD Attending Physician: [...] IR Thoracentesis Left 11/08/2021 Ramírez Ramirez MD [facility] INTERVENTIONL RAD ??? PRO BRONCHOSCOPY, DIAGNOSTIC N/A 03/29/2021 BRONCHOSCOPY, DIAGNOSTIC (WRVU 2.78) performed by Gilmer Gutiérrez MD at [facility] MAIN OR ??? PRO BRONCHOSCOPY, DIAGNOSTIC N/A 02/08/2022 BRONCHOSCOPY, DIAGNOSTIC (WRVU 2.78) performed by Gilmer Gtuiérrez MD at [facility] OR ? ? PRO INJECTION ANES AGENT &/ STEROID INTERCOSTAL NERVE SINGLE LEVEL Left 03/29/2021 NERVE BLOCK, INTERCOSTAL NERVE (WRVU 1.18) performed by Gilmer Gutiérrez MD at [facility] MAIN OR ??? PRO THORACOSCOPY SURG LOBECTOMY Left 03/29/2021 @THORACOSCOPY,SURGICAL,W\LOBECTOMY,TOTAL OR SEGMENTAL (WRVU 24.64) performed by Johana Gutiérrez MD at [facility] MAIN OR ??? PRO THORACOSCOPY WITH BIOPSY OF PLEURA Left 02/08/2022 THORACOSCOPY; WITH BIOPSY(IES) OF PLEURA (WRVU 4.58) performed by Gilmer Gutiérrez MD at [facility] OR ??? PRO THORACOSCOPY WITH MEDIASTINAL AND REGIONAL LYMPHADENECTOMY 03/29/2021 @THORACOSCOPY, SURG; W/MEDIASTINAL& REGIONAL LYMPHADENECTOMY (WRVU 4.12) performed by Gilmer Gutiérrez MD at [facility] MAIN OR ??? PRO THORACOSCOPY WITH WEDGE RESECTION AND ANATOMIC LUNG RESECTN Left 03/29/2021 @THORACOSCOPY, SURG; W/DX WEDGE RESC W/ANATOMIC LUNG RESC (WRVU 3) performed by Johana Gutiérrez MD at [facility] MAIN OR Social History Tobacco Use [...] 05/19/2022 8:38 AM EST Addendum created 05/19/22 08 by Sloan Rosa MD Intraprocedure Meds edited * Addendum Note - Dorys Sampson - 05/18/2022 4:34 PM EST Addendum created 05/18/22 163 by Dorys Sampson MD Order list changed documented in this encounter Plan of Treatment Upcoming Encounters Date Type Department Care Team (Late st Contact Info) Description 12/12/2023 Hospital Encounter Heart and Vascular Unit Level 3 [place] [address] Tiera Goldsmith MD [facility] [place] [address] Scheduled Procedures Name Priority Associated Diagnoses Date/Ti me ELECTROPHYSIOLOGY PROCEDURE Persistent atrial fibrillation CARDIOVERSION-ELECTIVE (WRVU 2) persistent atrial fibrillation TRANSESOPHAGEAL ECHOCARDIOGR AM (WRVU 2.3) persistent atrial fibrillation documented as of this encounter Procedures Procedure Name Priority Date/Time Associated Diagnosis Comments [id number] ONLY Routine 05/18/2022 8:43 AM EST documented in this encounter Results * [id number] ONLY (05/18/2022 8:43 AM EST) Narrative Sites, Karri Sharp MD - 05/18/2022 8:43 AM EST Sites, Karri Sharp MD ? 05/18/2022 12:59 PM Procedure: ?? [...] End time: 05/18/2022 9:19 AM Baseline Information ([id number] entry for database use): HTN: ??Yes Patient [...] AP/lateral epidurogram obtained. Patient was transported to [facility] OR for their procedure by president and chief commercial officer in stable condition. Soil Engineer (Caleb) I was present for the entire procedure. PA and Lateral dye study confirmed correct epidural location. ?? Resident/ELECTRO MECHANICAL ENGINEER: ? Second Resident/ELECTRO MECHANICAL ENGINEER: SRNA: ? Fellow: ?Belkis Rosenberg MD Attending Physician: ? Caleb, Karri Sharp MD ~~~~~~~~~~~~~~~~~~~~~~~~~~~~~~~~~~~~~~~~~~~~~~~~~~~~~~~~~~~~ Karri Ellis MD [facility] documented in this encounter Visit Diagnoses Not on filedocumented in this encounter Administered Medications Inactive Administered Medications - up to 3 most recent administrations Medication Order MAR Action Action Date Dose Rate Site ceFAZolin (Ancef) 2 g vial attach to sodium chloride 0.9% 100 mL Mini-Bag Plus 2 g, Intravenous, INSTALLATION & MAINTENANCE EXECUTIVE TO O.R., 1 dose, On Sat05/18/22 at [...] Units documented in this encounter Care Teams Special Education Classroom Aide Relationship Specialty Start Date End Date Tami Olivia [address] [place] [address] PCP - General Family Medicine 12/30/20 documented as of this encounter
--- OUTSIDE RECORDS SUMMARY | 2023-12-11 22:59 | XMS_ITS | Encounter Summary ---
Author Organization [facility] Address [facility] [place] [address] Care Team Providers Care Bar Welder Name Role Phone Tami Olivia Primary Care Provider [phone] Encounter Details Date Type Department Care Team (Late st Contact Info) Description 05/01/2022 Orders [place] [address] Megan Reza RN Social History Tobacco Use [...] Vascular Unit Level 3 [place] [address] Tiera Goldsmith MD [facility] [place] [address] Scheduled Procedures Name Priority Associated Diagnoses Date/Ti me ELECTROPHYSIOLOGY PROCEDURE Persistent atrial fibrillation CARDIOVERSION-ELECTIVE (WRVU 2) persistent atrial fibrillation TRANSESOPHAGEAL ECHOCARDIOGR AM (WRVU 2.3) persistent atrial fibrillation documented as of this encounter Visit Diagnoses Not on filedocumented in this encounter Care Teams Bar Welder Relationship Specialty Start Date End Date Tami Olivia [address] [place], [place] [address] PCP - General Family Medicine 12/30/20 documented as of this encounter
--- OUTSIDE RECORDS SUMMARY | 2023-12-11 22:59 | XMS_ITS | Encounter Summary ---
Author Organization [facility] Address [facility] [place] [address] Care Team Providers Care Senior Tax Analyst Name Role Phone Tami Olivia Primary Care Provider [phone] Encounter Details Date Type Department Care Team (Latest Contact Info) Description 04/16/2022 1:30 PM EST Laboratory Appointment Lab 3L [place] [address] Pleural effusion; Squamous cell carcinoma of left [...] Vascular Unit Level 3 [place] [address] Tiera Goldsmith MD [facility] [place] [address] Scheduled Procedures Name Priority Associated Diagnoses Date/Ti [...] 2:10 PM EST) Neutrophil % 70.5 % [facility] Neutrophil Absolute 5.46 1.70 - 6.10 x10(3)/mc L [facility] Lymph % 16.6 % [facility] Lymphocytes Abs 1.3 0.9 - 3.2 x10(3)/mc L [facility] Monocyte % 11.4 % [facility] Monocyte Abs 0.9 0.3 - 0.9 x10(3)/mc L [facility] Eos % 0.1 % [facility] Eosinophils Abs 0.0 0.0 - 0.4 x10(3)/mc L [facility] Basophil % 0.6 % [facility] Baso Absolute 0.0 0.0 - 0.1 x10(3)/mc L [facility] Immature Gran % 0.80 % [facility] Comment: Immature granulocytes(IG's)percentage and absolute count will include metamyelocytes, myelocytes, and promyelocytes. Blood smears from CBCs yielding IG's will be scanned manually for concordance. If this scan disagrees with the automated IG or if promyelocytes are noted, a manual differential will be performed. Immature Gran Absolute 0.06(H) 0.00 - 0.04 x10(3)/mc L [facility] Blood 04/16/2022 2:10 PM EST 04/16/2022 2:21 PM EST Narrative Resulting Agency Comment Spec In Lab Gilmer Gutiérrez MD HEMATOLOGY ORDER PHILOMENA [facility] [place] [address] * (ABNORMAL) Hemogram (04/16/2022 2:10 PM EST) White Blood Cell 7.8 4.0 - 9.5 x10(3)/mc L [facility] Red Blood Cell 4.54(L) 4.58 - 5.54 x10(6)/mc L [facility] Hemoglobin 11.5(L) 13.7 - 16.5 g/dL [facility] Hematocrit 36.9(L) 40.5 - 48.5 % [facility] Mean Cell Volume 81.3(L) 82.9 - 93.1 fL [facility] Mean Cell Hemoglobin 25.3(L) 27.5 - 32.1 pg [facility] Mean Cell Hemoglobin Concentration 31.2(L) 32.0 - 35.7 g/dL [facility] Platelet 364(H) 145 - 357 x10(3)/mc L [facility] RDW Standard Deviation 48.6(H) 36.0 - 45.0 fL [facility] RDW coefficient of variation 16.6(H) 11.4 - 13.8 % [facility] Mean Platelet Volume 8.6 7.6 - 12.9 fL [facility] NRBC% auto 0.0 % [facility] NRBC Absolute 0.000 0.000 - 0.000 x10(3)/ L [facility] Blood 04/16/2022 2:10 PM EST 04/16/2022 2:21 PM EST Narrative Resulting Agency Comment Spec In Lab Gilmer Gutiérrez MD HEMATOLOGY ORDER PHILOMENA [facility] [place] [address] * (ABNORMAL) Comprehensive metabolic panel (non-fasting) (04/16/2022 2:10 PM EST) Glucose 98 65 - 199 mg/dL [facility] Comment:Diabetes: >=200 mg/d L plus symptoms Blood Urea Nitrogen 19 10 - 20 mg/dL [facility] Creatinine 1.20 0.80 - 1.50 mg/dL [facility] Sodium 135 135 - 145 mmol/L [facility] Potassium 4.8 3.5 - 5.0 mmol/L [facility] Comment: Please note: ??Patients with WBC >100,000 may have falsely elevated Potassium levels. ??For accurate Potassium quantification in these patients send serum separator tube (gold top) for subsequent determinations. ??Contact the Clinical Chemistry Laboratory if there are any questions. Chloride 97(L) 98 - 107 mmol/L [facility] Carbon Dioxide 25 22 - 31 mmol/L [facility] Anion Gap 13 5 - 15 mmol/L [facility] Calcium 10.7(H) 8.5 - 10.5 mg/dL [facility] Protein, Total 7.3 6.1 - 8.0 g/dL [facility] Albumin 3.8 3.2 - 5.2 g/dL [facility] Aspartate Aminotransferase 11 0 - 39 unit/L [facility] Alanine Aminotransferase 13 0 - 55 unit/L [facility] Alkaline Phosphatase 202(H) 40 - 130 unit/L [facility] Bilirubin, Total 0.5 0.2 - 1.3 mg/dL [facility] Est Glomerular Filtration Rate 64 >=60 mL/min/1. 73 m?? 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
--- OUTSIDE RECORDS SUMMARY | 2023-12-11 22:59 | XMS_ITS | Encounter Summary ---
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 Procedures CT Chest w Contrast Gilmer Gutiérrez MD [facility] [place] [address] [facility] [place] [address] Referral ID Status Reason Start Date Expiration Date V isits Requested Visits Authorized [id number] Closed Specialty Service Requested 03/06/2022 09/05/2023 1 1 Reason for Visit * Diagnostic Test (Routine) - Closed Specialty Diagnoses / Procedures Referred By Bert gautam Referred To Contact Radiology Diagnoses Pleural effusion 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 Procedures CT Chest w Contrast Gilmer Gutiérrez MD [facility] [place] [address] [facility] [place] [address] Referral ID Status Reason Start Date Expiration Date V isits Requested Visits Authorized [id number] Closed Specialty Service Requested 03/06/2022 09/05/2023 1 1 Encounter Details Date Type Department Care Team (Latest Contact Info) Description 04/16/2022 2:16 PM EST - 04/16/2022 11:59 PM EST Hospital [place] [phone] Gilmer Gutiérrez MD [facility] [place] [address] Pleural effusion; Squamous cell carcinoma of left [...] Vascular Unit Level 3 [place] [address] Tiera Goldsmith MD [facility] [place] [place] [address] Scheduled Procedures Name Priority Associated Diagnoses Date/Ti [...] who have questions please contact the health hearing care professional that requested your imaging first. ? Electronically signed by: Maryann Magallanes MD, [facility] ([phone]), at 04/16/2022 7:31 PM Narrative 04/16/2022 7:31 [...] patients who have questions please contactthe health hearing care professional that requested your imaging first. Gilmer Gutiérrez [...] mLs documented in this encounter Care Teams Nca Certified Concierge Relationship Specialty Start Date End Date Tami Olivia [address] [place] [address] PCP - General Family Medicine 10/22/21 documented as of this encounter
--- OUTSIDE RECORDS SUMMARY | 2023-12-11 22:59 | XMS_ITS | Encounter Summary ---
Author Organization [facility] Address [facility] [place] [address] Care Team Providers Care Senior Net Web Developer Name Role Phone Tmai Olivia Primary Care Provider [phone] Encounter Details Date Type Department Care Team [...] Vascular Unit Level 3 [place] [address] Tiera Goldsmith MD [facility] [place] [address] Scheduled Procedures Name Priority Associated Diagnoses Date/Ti me ELECTROPHYSIOLOGY PROCEDURE Persistent atrial fibrillation CARDIOVERSION-ELECTIVE (WRVU 2) persistent atrial fibrillation TRANSESOPHAGEAL ECHOCARDIOGR AM (WRVU 2.3) persistent atrial fibrillation documented as of this encounter Visit Diagnoses Not on filedocumented in this encounter Care Teams Senior Net Web Developer Relationship Specialty Start Date End Date Tami Olivia [address] [place] [address] PCP - General Family Medicine 12/30/20 documented as of this encounter
--- OUTSIDE RECORDS SUMMARY | 2023-12-11 22:59 | XMS_ITS | Encounter Summary ---
Author Organization [facility] Address [facility] [place] [address] Care Team Providers Care Tablet Making Machine Operator Name Role Phone Tami Olivia Primary Care Provider Encounter Details Date Type Department Care Team (Late st Contact Info) Description 04/24/2022 Orders Only [place] [address] Gilmer Gutiérrez MD [facility] [place] [address] Status post lobectomy of lung Social History [...] Vascular Unit Level 3 [place] [address] Tiera Goldsmith MD [facility] [place] [address] Scheduled Procedures Name Priority Associated Diagnoses Date/Ti me ELECTROPHYSIOLOGY PROCEDURE Persistent atrial fibrillation CARDIOVERSION-ELECTIVE (WRVU 2) persistent atrial fibrillation TRANSESOPHAGEAL ECHOCARDIOGR AM (WRVU 2.3) persistent atrial fibrillation documented as of this encounter Visit Diagnoses Diagnosis Status post lobectomy of lung Other postprocedural status documented in this encounter Care Teams Tablet Making Machine Operator Relationship Specialty Start Date End Date Tami Olivia [address] [place] [address] PCP - General Family Medicine 12/30/20 documented as of this encounter
--- OUTSIDE RECORDS SUMMARY | 2023-12-11 22:59 | XMS_ITS | Encounter Summary ---
Author Organization [facility] Address [facility] [place] [address] Care Team Providers Care Railroad Wheels And Axle Inspector Name Role Phone AldairKarleeTami Primary Care Provider [phone] Encounter Details Date Type Department Care Team (Latest Contact Info) Description 03/06/2022 11:37 AM EST - 03/06/2022 11:59 PM [facility] Hospital Encounter XRay at [address] [place] [address] Squamous cell carcinoma of left lung Discharge [...] Vascular Unit Level 3 [place] [address] Tiera Goldsmith MD [facility] [place] [address] Scheduled Procedures Name Priority Associated Diagnoses Date/Ti [...] have questions please contact the health home day care provider that requested your imaging first. ? Electronically signed by: Marcus Edwards MD, [facility] ([phone]), at 03/06/2022 2:27 PM Narrative 03/06/2022 2:27 [...] who have questions please contactthe health home day care provider that requested your imaging first. Electronically signed by: Marcus Edwards MD, [facility]([phone]), at 03/06/2022 2:27 PM Gilmer Gutiérrez MD IMG DX ORDERABLE S documented in this encounter Visit Diagnoses Diagnosis Squamous cell carcinoma of left lung documented in this encounter Care Teams Railroad Wheels And Axle Inspector Relationship Specialty Start Date End Date Tami Olivia [address] [place] [address] PCP - General Family Medicine 12/30/20 documented as of this encounter
--- OUTSIDE RECORDS SUMMARY | 2023-12-11 23:00 | XMS_ITS | Encounter Summary ---
Author Organization [facility] Address [facility] [place] [address] Care Team Providers Care See Wheeler Name Role Phone Tami Olivia Primary Care Provider [phone] Reason for Visit * Reason Onset Date Comments Other 02/15/2022 Encounter Details Date Type Department Care Team (Late st Contact Info) Description 02/15/2022 Telephone Thoracic Surgery at [facility] [place] [phone] Megan Reza, RN Other Social History Tobacco [...] Vascular Unit Level 3 [place] [phone] Tiera Goldsmith MD [facility] [place] [address] Scheduled Procedures Name Priority Associated Diagnoses Date/Ti me ELECTROPHYSIOLOGY PROCEDURE Persistent atrial fibrillation CARDIOVERSION-ELECTIVE (WRVU 2) persistent atrial fibrillation TRANSESOPHAGEAL ECHOCARDIOGR AM (WRVU 2.3) persistent atrial fibrillation documented as of this encounter Visit Diagnoses Not on filedocumented in this encounter Care Teams See Wheeler Relationship Specialty Start Date End Date Tami Olivia [address] [place] [address] PCP - General Family Medicine 12/30/20 documented as of this encounter
--- OUTSIDE RECORDS SUMMARY | 2023-12-11 23:00 | XMS_ITS | Encounter Summary ---
Author Organization [facility] [place] [address] Care Team Providers Care Sap Director Name Role Phone Tami Olivia Primary Care Provider Encounter Details Date Type Department Care Team (Late st Contact Info) Description 02/12/2022 Telephone [place] [address] Megan Reza RN Social History [...] Vascular Unit Level 3 [place] [address] Tiera Goldsmith MD [facility] [place] [address] Scheduled Procedures Name Priority Associated Diagnoses Date/Ti me ELECTROPHYSIOLOGY PROCEDURE Persistent atrial fibrillation CARDIOVERSION-ELECTIVE (WRVU 2) persistent atrial fibrillation TRANSESOPHAGEAL ECHOCARDIOGR AM (WRVU 2.3) persistent atrial fibrillation documented as of this encounter Visit Diagnoses Not on filedocumented in this encounter Care Teams Sap Director Relationship Specialty Start Date End Date Tami Olivia [address] [place] [address] PCP - General Family Medicine 12/30/20 documented as of this encounter
--- OUTSIDE RECORDS SUMMARY | 2023-12-11 23:00 | XMS_ITS | Encounter Summary ---
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 Procedures CT Chest w Contrast Gilmer Gutiérrez MD [facility] [place] [address] [facility] [place] [address] Referral ID Status Reason Start Date Expiration Date V isits Requested Visits Authorized [id number] Closed Specialty Service Requested 11/14/2021 05/15/2023 1 1 Reason for Visit * Diagnostic Test (Routine) - Closed Specialty Diagnoses / Procedures Referred By Bert gautam Referred To Contact Radiology Diagnoses 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 Procedures CT Chest w Contrast Gilmer Gutiérrez MD [facility] [place] [address] [facility] [place] [address] Referral ID Status Reason Start Date Expiration Date V isits Requested Visits Authorized [id number] Closed Specialty Service Requested 11/14/2021 05/15/2023 1 1 Encounter Details Date Type Department Care Team (Latest Contact Info) Description 01/29/2022 12:10 PM EST - 01/29/2022 11:59 PM EST Hospital Encounter CT Scan at [facility] [place] [phone] Gilmer Gutiérrez MD [facility] DR THORACIC [place] [address] Status post lobectomy of lung; Primary squamous [...] Vascular Unit Level 3 [place] [address] Tiera Goldsmith MD [facility] [place] [address] Scheduled Procedures Name Priority Associated Diagnoses Date/Ti [...] who have questions please contact the health managed care analyst that requested your imaging first. ? Electronically signed by: Ludivina Cummings MD, [facility] ([phone]), at 01/29/2022 3:05 PM Narrative 01/29/2022 3:05 [...] patients who have questions please contactthe health managed care analyst that requested your imaging first. Electronically signed by: Ludivina Cumimngs MD, [facility]([phone]), at 01/29/2022 3:05 PM Gilmer Gutiérrez MD [...] mLs documented in this encounter Care Teams Certified Scrum Master Relationship Specialty Start Date End Date Tami Olivia [address] [place] [address] PCP - General Family Medicine 12/30/20 documented as of this encounter
--- OUTSIDE RECORDS SUMMARY | 2023-12-11 23:00 | XMS_ITS | Encounter Summary ---
Author Organization [facility] Address [facility] [place] [address] Care Team Providers Care Analytics Developer Name Role Phone Tami Olivia Primary Care Provider [phone] Reason for Visit * Reason Onset Date Comments Post Procedure Call 02/12/2022 Encounter Details Date Type Department Care Team (Late st Contact Info) Description 02/12/[address] [facility] [place] [phone] Megan Reza, RN Post Procedure Call Social [...] RTC on TBD CXR TBD Dr. Marla Tolentino Mica Marquez is aware of appointments and know to call with any questions or concerns. documented in this encounter Plan of Treatment Upcoming Encounters Date Type Department Care Team (Late st Contact Info) Description 12/12/2023 Hospital Encounter Heart and Vascular Unit Level 3 [place] [address] Tiera Goldsmith MD [facility] [address] Scheduled Procedures Name Priority Associated Diagnoses Date/Ti ri ELECTROPHYSIOLOGY PROCEDURE Persistent atrial fibrillation CARDIOVERSION-ELECTIVE (WRVU 2) persistent atrial fibrillation TRANSESOPHAGEAL ECHOCARDIOGR AM (WRVU 2.3) persistent atrial fibrillation documented as of this encounter Visit Diagnoses Not on filedocumented in this encounter Care Teams Analytics Developer Relationship Specialty Start Date End Date Tami Olivia [address] [place] [address] PCP - General Family Medicine 12/30/20 documented as of this encounter
--- OUTSIDE RECORDS SUMMARY | 2023-12-11 23:00 | XMS_ITS | Encounter Summary ---
Author Organization [facility] Address [facility] [place] [address] Care Team Providers Care Char Filter Tank Tender Head Name Role Phone Tami Olivia Primary Care Provider [phone] Encounter Details Date Type Department Care Team (Late st Contact Info) Description 02/19/2022 11:59 PM EST Anesthesia Event [place] [address] Verna Anton MD [facility] [place] [address] Anesthesia Record Procedure Summary Procedure Name Responsible [...] Thoracentesis Left 11/08/2021 Forauer, Ramírez Ziegler MD [facility] INTERVENTIONL RAD ??? PRO BRONCHOSCOPY, DIAGNOSTIC N/A 03/29/2021 BRONCHOSCOPY, DIAGNOSTIC (WRVU 2.78) performed by Gilmer Gutiérrez MD at [facility] MAIN OR ??? PRO BRONCHOSCOPY, DIAGNOSTIC N/A 02/08/2022 BRONCHOSCOPY, DIAGNOSTIC (WRVU 2.78) performed by Gilmer Gutiérrez MD at [facility] MAIN OR ? ? PRO INJECTION ANES AGENT &/ STEROID INTERCOSTAL NERVE SINGLE LEVEL Left 03/29/2021 NERVE BLOCK, INTERCOSTAL NERVE (WRVU 1.18) performed by Gilmer Gutiérrez MD at [facility] MAIN OR ??? PRO THORACOSCOPY SURG LOBECTOMY Left 03/29/2021 @THORACOSCOPY,SURGICAL,W\LOBECTOMY,TOTAL OR SEGMENTAL (WRVU 24.64) performed by Johana Gutiérrez MD at [facility] MAIN OR ??? PRO THORACOSCOPY WITH BIOPSY OF PLEURA Left 02/08/2022 THORACOSCOPY; WITH BIOPSY(IES) OF PLEURA (WRVU 4.58) [facility] ??? PRO THORACOSCOPY WITH MEDIASTINAL AND REGIONAL LYMPHADENECTOMY 03/29/2021 @THORACOSCOPY, SURG; W/MEDIASTINAL& REGIONAL LYMPHADENECTOMY (WRVU 4.12) performed by Gilmer Gutiérrez MD at [facility] MAIN OR ??? PRO THORACOSCOPY WITH WEDGE RESECTION AND ANATOMIC LUNG RESECTN Left 03/29/2021 @THORACOSCOPY, SURG; W/DX WEDGE RESC W/ANATOMIC LUNG RESC (WRVU 3) performed by Johana Gutiérrez MD at [facility] MAIN OR Social History Tobacco Use [...] DL with MAC 4. 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, given history [...] Vascular Unit Level 3 [place] [phone] Tiera Goldsmith MD [facility] [place] [address] Scheduled Procedures Name Priority Associated Diagnoses Date/Ti me ELECTROPHYSIOLOGY PROCEDURE Persistent atrial fibrillation CARDIOVERSION-ELECTIVE (WRVU 2) persistent atrial fibrillation TRANSESOPHAGEAL ECHOCARDIOGR AM (WRVU 2.3) persistent atrial fibrillation documented as of this encounter Visit Diagnoses Not on filedocumented in this encounter Care Teams Char Filter Tank Tender Head Relationship Specialty Start Date End Date Tami Olivia [address] [place] [address] PCP - General Family Medicine 12/30/20 documented as of this encounter
--- OUTSIDE RECORDS SUMMARY | 2023-12-11 23:00 | XMS_ITS | Encounter Summary ---
Author Organization [facility] Address [facility] [address] [place] [id number] Care Team Providers Care Watch Manufacturing Supervisor Name Role Phone Tami Olivia Primary Care Provider [phone] Reason for Visit * Auth/Cert (Routine) Specialty Diagnoses / Procedures Referred By Bert gautam Referred To Contact Diagnoses Pleural effusion, not elsewhere classified Malignant neoplasm of unspecified part of left bronchus or lung pleural effusion Procedures PRO THORACOSCOPY WITH BIOPSY OF PLEURA PRO BRONCHOSCOPY, DIAGNOSTIC THORACOSCOPY; WITH BIOPSY(IES) OF PLEURA (WRVU 4.58) BRONCHOSCOPY, DIAGNOSTIC (WRVU 2.78) Gilmer Foster MD [facility] [place] [address] [facility] Referral ID Status Reason Start Date Expiration Date Visits Re quested Visits Authorized [id number] 1 1 Encounter Details Date Type Department Care Team (Late st Contact Info) Description 02/08/2022 12:15 PM EST - 02/08/2022 3:16 PM EST Surgery [place] [address] Gilmer Foster MD [facility] [place] [address] THORACOSCOPY; WITH BIOPSY(IES) OF PLEURA (WRVU 4.58) [...] Hospital Course: Rajan Marquez was admitted to [facility] on 02/08/2022 via the [place]. He was [...] who have questions please contact the health geriatric care manager that requested your imaging first. Chest PA & Lateral (Generic) (Exam End: 02/10/2022 5:23 AM) Impression Enlarging left hydropneumothorax. Thank you for letting us participate in the care of this patient. If you are a health care provider and have any questions regarding this report, please contact the number below. For patients who have questions please contact the health geriatric care manager that requested your imaging first. Electronically signed by: Maryann Magallanes MD, [facility] ([phone]), at 02/10/2022 8:05 AM Pending Studies and [...] a nurse in the Thoracic Clinic at [phone]. After hours or on weekends or holidays please call: [phone] and ask to speak to the Thoracic [...] please call the thoracic surgery clinic at [phone]. Driving: No driving for 1 week or [...] the Thoracic Clinic or the Thoracic Surgeon composition stone applicator after hours. Please take over the counter [...] our office if you have any questions. [phone] Future Appointments Date Time Provider Department Center 02/10/2022 5:00 AM [facility] DX ROOM 9 Xray [facility] Rad General Instructions Keep the Express Mini in an upright position and make sure the tubing stays firmly attached to the end of your chest tube. If it becomes disconnected you will need to reconnect it immediately and tape it securely. If you cannot get it reconnected you will need to go to the Emergency Room at [facility] immediately. Be sure to not let the [...] and contact Dr. Gilmer Cardozo office at [phone] if the amount increases by 200 cc [...] contact the Thoracic Surgery office promptly at [phone]. Opioid PDMP 02/13/2021 [place] PDMP Query Date [...] Expires XR Chest PA & Lateral (Generic) [[id number] Custom] 02/23/2022 08/25/2022 Process Instructions: Scheduling Instructions: Questions: Reason for exam and clinical history: s/p left VATS pleural biopsy Clinical information / bryan questions for radiologist: ?interval change Where will study be performed?: [facility] Radiology Portable exam?: Stat read required?: Date of injury if applicable: Requested Time: XR Chest PA & Lateral (Generic) [[id number] Custom] 02/24/2022 (Approximate) 08/26/2022 Process Instructions: Scheduling Instructions: Questions: Reason for exam and clinical history: s/p left vats pleural biopsy Clinical information / bryan questions for radiologist: eval for ptx and or effusion Where will study be performed?: [facility] Radiology Portable exam?: Stat read required?: Date of injury if applicable: Requested Time: Referral to Home Health [REF34 Custom] As directed Process Instructions: If no progress note charted, please enter Clinical details in comments. Scheduling Instructions: Comments: Please evaluate Rajan Marquez for admission to Home Health. [address] [facility] [place] [address] Phone Number: Date of : 1950 Inpatient DOCUMENTATION FOR VNA SERVICES (INCLUDING THOSE PATIENTS WITH MEDICARE COVERAGE REQUIRING HOME VNA SERVICES AND/OR HOSPICE SERVICES) PATIENT'S LOCATION: Rajan Marquez [address] [facility] [address] Lay Out Carpenter's Name: self/family In discussion with the attending physician, it is certified that this patient is under their care and that they, or a Nurse Practitioner,Clinical Nurse specialist or Physician Lock Installer who is working directly with them, had [...] Emergency Room or the Emergency Room at [facility] immediately. Check the Atrium Express Mini 500 [...] your scheduled appointment. HOME HEALTH CARE AGENCY: [facility] [place] [facility] [address] PHONE: [phone] FAX: [phone] Start of care: within 24 to 48 hours of discharge Please note that any additional orders needs or changes will need to be obtained from this patient's PCP: Tami ALTMAN [address] / [place] [id number] All VNA agencies which cover the area of patient's residence have been reviewed, either verbally crow writing, and patient/family have chosen the home health care agency noted Questions: Disciplines Requested: Nursing Provider Contact Information: Primary Care Provider: Tami Olivia [phone] Discharge References/Attachments: Discharge References/Attachments None For questions regarding this document or issues relating to this hospitalization on the Thoracic Surgery Service, please contact Dr. Foster's office at . Signed: STEVE Black 02/10/2022 Thoracic Surgery [facility] CC: PCP: Tami Olivia Referring: Tami Olivia [address] [place] [address] documented in this encounter Discharge Instructions * [...] to go to the Emergency Room at [facility] immediately. Be sure to not let the [...] and contact Dr. Gilmer Fosters office at [phone] if the amount increases by 200 cc [...] contact the Thoracic Surgery office promptly at [phone]. * Patient Instructions* Camilo Stevenson PA - 02/09/2022 11:12 AM EST Call if you have a fever of greater than 101 degrees, shaking chills, develop redness or drainage from your incision site(s), or if you have questions. During normal business hours, Saturday- Saturday 8:00 a.m.-5:00 p.m., please call to speak to a nurse in the Thoracic Clinic at [phone]. After hours or on weekends or holidays please call: [phone] and ask to speak to the Thoracic [...] please call the thoracic surgery clinic at [phone]. Driving: No driving for 1 week or [...] the Thoracic Clinic or the Thoracic Surgeon composition stone applicator after hours. Please take over the counter [...] our office if you have any questions. [phone] Future Appointments Date Time Provider Department Center 02/10/2022 5:00 AM [facility] DX ROOM 9 Xray [facility] Rad documented in this encounter Medications [...] Paredes RN - 02/10/2022 1:16 PM EST [facility] Short Stay Unit Discharge Note All [...] Baez MD - 02/09/2022 8:53 AM EST [facility] Department of Thoracic Surgery Inpatient Progress Note Patient Name: Rajan Marquez Patient : 1950 Patient Patient Location: [address] Attending Surgeon: GILMER FOSTER ID: Rajan [...] Admission (Current) from 02/08/2022 in PACU at [facility] OfficeVisit from 01/29/2022 in Thoracic Surgery at [facility] Weight 75.8 kg (167 lb) 1 02/08/2022 [...] Result Value Ref Range Surgical Pathology Report [id number] Location: OR; OR22; A The signing pathologist has (i) examined the relevant preparation(s) for the specimen(s) and (ii) rendered or confirmed the diagnosis(es). . Frozen Section FROZEN SECTION DIAGNOSIS AFS - Left pleural biopsy, for frozen section (2 blocks): Atypical cells, cannot exclude malignancy, defer to permanent. 02/08/22 13:26 Electronically signed by: Malia Lacy MD Verified: 02/08/2022 13:50 Pathologist Performed at: -[facility] Dept. of Pathology, [place] [address] Log Inspector: Maria Ines Marrufo MD, FCAP, CLIA Certificate: [id number] This intraoperative consultation should be interpreted as [...] who have questions please contact the health geriatric care manager that requested your imaging first. Micro: Procedure Component Value Units Date/Time Fungus culture Pleural Fluid [[id number]] Collected: 02/08/22 1254 Lab Status: Preliminary result Specimen: Pleural Fluid Updated: 02/09/22 0817 Fungus Culture No Fungus isolated to date Body Fluid Culture, Aerobic & Anaerobic Pleural Fluid [[id number]] Collected: 02/08/22 1254 Lab Status: Preliminary result Specimen: Pleural Fluid Updated: 02/09/22 0743 Body Fluid Culture, Aerobic [[id number]] Collected: 02/08/22 1254 Lab Status: Preliminary result [...] Baez MD 02/09/2022 Thoracic Surgery Service Pager [phone] * Debbie Pride RN - 02/09/2022 8:44 [...] dressing is CDI. 0700: Report given to NAIL ASSEMBLY MACHINE OPERATORDebbie VASQUEZ. Care assumed. * Juanita Sotomayor [...] IR Thoracentesis Left 11/08/2021 Ramírez Ramirez MD [facility] INTERVENTIONL RAD ??? PRO BRONCHOSCOPY, DIAGNOSTIC N/A 03/29/2021 BRONCHOSCOPY, DIAGNOSTIC (WRVU 2.78) performed by Gilmer Foster MD at [facility] MAIN OR ? ? PRO INJECTION ANES AGENT &/ STEROID INTERCOSTAL NERVE SINGLE LEVEL Left 03/29/2021 NERVE BLOCK, INTERCOSTAL NERVE (WRVU 1.18) performed by Gilmer Foster MD at [facility] OR ??? PRO THORACOSCOPY SURG LOBECTOMY Left 03/29/2021 @THORACOSCOPY,SURGICAL,W\LOBECTOMY,TOTAL OR SEGMENTAL (WRVU 24.64) performed by Johana Foster MD at [facility] OR ??? PRO THORACOSCOPY WITH MEDIASTINAL AND REGIONAL LYMPHADENECTOMY 03/29/2021 @THORACOSCOPY, SURG; W/MEDIASTINAL& REGIONAL LYMPHADENECTOMY (WRVU 4.12) performed by Gilmer Foster MD at [facility] OR ??? PRO THORACOSCOPY WITH WEDGE RESECTION AND ANATOMIC LUNG RESECTN Left 03/29/2021 @THORACOSCOPY, SURG; W/DX WEDGE RESC W/ANATOMIC LUNG RESC (WRVU 3) performed by Johana Foster MD at [facility] OR MEDS: No current facility-administered medications on [...] Nieto MD 02/08/2022 Thoracic Surgery Service Pager [phone] documented in this encounter Miscellaneous Notes * [...] information for follow-up Home Health & Hospice, [address] [facility] [address] Transportation: family or friend will provide Wheelchair van/Ambulance? No Functional status prior to admission: Independent Home Environment: Others in the home: significant other. Current Living Arrangements: home/apartment/condo. Accessibility Concerns:none noted. Current Functional Ability: DME used at home: none DME Needed at Discharge: Mini atrium Patient is insured through: Primary Insurance: [employer] MANAGED MEDICARE Payor: AAR MANAGED MEDICARE / Plan: [facility] MANA[facility]ED [facility]IC[facility] COMPLETE / Product Type: *No Producttype* / Secondary Insurance: N/A Prescription Coverage: Yes This plan was formulated with input from patient, and team. All are in agreement with plan. Natanael Sims RN, BSN Case Management [phone] * Care Management - Melania Salinas RN - 02/09/2022 2:26 PM EST RN/CM has reviewed with provider team. Admit: 02/08/2022 with anticipated discharge: 02/10/2022. Pt remains OBS status at this time. Pending review later today. Christie Pascal) CHRISTINA Salinas RN/CM - Cellphone: [phone] Pager: [phone] Covering Service RN/LACEY * Initial Assessments - [...] surrogate would be surrogate decision maker per [place] surrogate decision making law. (Only good for 180 days) Any patient receiving care in [place] must abide by [place] law. The hierarchy for surrogate decision making [...] Current DME: none Home Address confirmed as: [address] [place] [id number] Social & Family Supports: All names listed [...] points: Addiction likely Health/Prescription Coverage: Primary Insurance: [facility] MANAGED MEDICARE Payor: AARP MANAGED MEDICARE / Plan: [facility] MANAGED MEDICARE COMPLETE / Product Type: *No Producttype* / Secondary Insurance: N/A ; Prescription Coverage: Yes Preferred Pharmacy: [facility] - [place], [place] - [address] [place] [id number] [place] Status: Patient is a : No Primary Care Provider listed: Tami Olivia [phone] Patient/Caregiver Goals of Treatment: Return home with [...] are placed. Patient requests referral to : [facility] [place] [address] PHONE: [phone] FAX: [phone] Expected date of discharge: 02/09/2022 vs 02/10/2022 Referral routed to the [employer] Person for matching with agency/vendor and to provide [...] planningCecilia Salinas RN (Jonas) RN/CM - Cellphone: [phone] Pager: [phone] Covering Service RN/CM * Op Note - Gilmer Foster MD - 02/08/2022 12:40 PM EST [facility] Operative Note Patient Name: Rajan Marquez : [id number] MR#: [id number] Case Date: 02/08/2022 Surgeon: Surgeon(s) and Role: [...] TO PATHOLOGY Left pleural [place] 22 [id number] pleural effusion Left pleural biopsy biopsy YES, Please perform frozen section 02/08/2022 1:01 PM Number of tissue samples (in container) 1 Time specimen removed from patient: 1:00 PM CYTOPATHOLOGY NON-GYNECOLOGICAL Left pleural fluid OR 22 [id number] 02/08/2022 1:10 PM Pertinent clinical data and significant therapy: pleural effusion Clinical impression: pleural effusion Procedure Type: Other (please specify in Comments Field below) Specimen Type: Pleural fluid (thoracentesis) Description and source of specimen: Left pleural fluid SPECIMEN TO PATHOLOGY Left pleural biopsy OR 22 [id number] pleural effusion Left pleural biopsy biopsy 02/08/2022 1:15 PM Time specimen removed from patient: 1:15 PM Number of tissue samples (in container) 1 Drains: 28 Filipino chest tube, left Surgical Closure: Primary Closure [...] copiously with warm normal saline. A 28 Filipino chest tube was placed through the anterior [...] Vascular Unit Level 3 [place] [address] Tiera Goldsmith MD [facility] [place] [address] Scheduled Procedures Name Priority Associated Diagnoses Date/Ti dc ELECTROPHYSIOLOGY PROCEDURE Persistent atrial fibrillation CARDIOVERSION-ELECTIVE (WRVU [...] TO PATHOLOGY Routine 02/08/2022 1:15 PM EST NON-WAITER/WAITRESS ROOM SERVICE FINAL REPORT Routine 02/08/2022 1:10 PM EST [...] Routine 02/08/2022 12:54 PM EST Bronchoscopy, Diagnostic ([id number]) 02/08/2022 12:00 PM EST Pleural effusion Squamous [...] who have questions please contact the health geriatric care manager that requested your imaging first. [...] patients who have questions please contactthe health geriatric care manager that requested your imaging first. Gilmer [...] who have questions please contact the health geriatric care manager that requested your imaging first. ? Electronically signed by: Maryann Magallanes MD, [facility] ([phone]), at 02/10/2022 8:05 AM Narrative 02/10/2022 8:05 [...] patients who have questions please contactthe health geriatric care manager that requested your imaging first. Gilmer [...] who have questions please contact the health geriatric care manager that requested your imaging first. [...] patients who have questions please contactthe health geriatric care manager that requested your imaging first. Gilmer Foster MD IMG DX ORDERABLE S * Specimen to Pathology (02/08/2022 1:15 PM EST) AP Specimen 02/08/2022 1:15 PM EST 02/08/2022 1:15 PM EST Narrative [facility] - 02/08/2022 1:15 PM EST Specimen requisition ordered. ??Separate Pathology report to follow Gilmer Foster MD PATHOLOGY/CYTOLO GY ORDERABLES [facility] [place] [address] * Non-Pipe Coverer Helper Final Report (02/08/2022 1:10 PM EST) Diagnosis Discussion [id number] ? Location: [facility]; [address] The signing pathologist has (i) examined the relevant preparation(s) for the specimen(s) and (ii) rendered or confirmed the diagnosis(es). . ? Non-Pipe Coverer Helper Final DIAGNOSIS See Discussion Electronically signed by: ?Asher FLORES, Rory Swann Verified: ??02/10/2022 17:36 ??Cytopathologis t Performed at: ??-[facility] Dept. of Pathology, [place] [address] Log Inspector: Maria Ines Marrufo MD, FCAP, ??CLIA Certificate: [id number] DISCUSSION Pleural fluid: left (thoracentesis) - Predominantly [...] Cell Block 1. 02/10/2022 5:36 PM EST [facility] LEFT PLEURAL FLUID / Unknown 02/08/2022 1:10 PM EST 02/08/2022 1:10 PM EST Gilmer Foster MD PATHOLOGY/CYTOLO GY ORDERABLES Performing Organization Address [facility] Co de Phone Number [facility] [place] [address] * Cytopathology Non-Gynecological (02/08/2022 1:10 PM EST) AP Specimen 02/08/2022 1:10 PM EST 02/08/2022 1:10 PM EST Narrative [facility] - 02/08/2022 1:10 PM EST Specimen requisition ordered. ??Separate Pathology report to follow Gilmer Foster MD PATHOLOGY/CYTOLO GY ORDERABLES Performing Organization Address [facility] de Phone Number [facility] [place] [address] * Surgical Pathology Report (02/08/2022 1:01 PM EST) Final Diagnosis [id number] ? Location: [facility]; [facility]; The signing pathologist has (i) examined the [...] DO Verified: ??02/16/2022 10:09 ??Pathologist Performed at: ??-[facility] Dept. of Pathology, [place] [address] Log Inspector: Maria Ines Marrufo MD, AP, ??CLIA Certificate: [id number] DISCUSSION No malignancy is identified. ??The morphology [...] A2 ?CK20 ?Negative A2 ?CDX2 ?Negative A2 ?GLX3vdqa ?Negative A2 ?Calretinin ?Rare positive cell (high [...] of soft, pink-white membranous tissue fragments. Sections/Processing: Clinical Practitioner sections in 2 cassettes labeled B1-B2. ??sns ?Frozen Section FROZEN SECTION DIAGNOSIS AFS - Left pleural biopsy, ?? for frozen section (2 blocks): Atypical cells, cannot exclude malignancy, defer to permanent. 02/08/22 13:26 Electronically signed by: ?Malia Lacy MD Verified: ??02/08/2022 13:50 ??Pathologist Performed at: ??-[facility] Dept. of Pathology, [place] [address] Log Inspector: Maria Ines Marrufo MD, FCAP, ??CLIA Certificate: [id number] This intraoperative consultation should be interpreted as a preliminary diagnosis pending review of the entire specimen and special studies, if any. A final Surgical Pathology report will follow this preliminary Frozen Section report(s). 02/16/2022 10:09 AM EST [facility] Frozen Specimen 02/08/2022 1 :01 PM EST 02/08/2022 1:01 PM EST Pleura 02/08/2022 1:01 PM EST 02/08/2022 1:01 PM EST Gilmer Foster MD PATHOLOGY/CYTOLO GY ORDERABLES Performing Organization Address City/[facility]/ZIP Co de Phone Number [facility] [address] [place] [address] * Specimen to Pathology (02/08/2022 1:01 PM EST) AP Specimen 02/08/2022 1:01 PM EST 02/08/2022 1:01 PM EST Narrative [facility] - 02/08/2022 1:01 PM EST Specimen requisition ordered. ??Separate Pathology report to follow Gilmer Foster MD PATHOLOGY/CYTOLO GY ORDERABLES Performing Organization Address City/[facility] Co de Phone Number [facility] [place] [address] * Flow Cytometry Report (02/08/2022 12:54 PM EST) Flow Cytometry Report [id number] ? Location: [facility]; [facility]; The signing pathologist has (i) examined the [...] Ruddy Verified: ??02/09/2022 16:30 ??Hematopathologist Performed at: ??-[facility] Dept. of Pathology, [place] [address] Log Inspector: Maria Ines Marrufo MD, AP, ??CLIA Certificate: [id number] DISCUSSION Blasts based on CD45 expression and orthogonal light scatter, are not increased. The CD19 positive B-cells have a polytypic expression of surface immunoglobulin light chain ([place]:Lambda ratio at 1.7). The T-cells are an admixture of CD4+ and CD8+ T lymphocytes (ratio of 1.6). No loss or atypical intensity distributions are seen for any nixon T antigen (CD2, 3, 4+8, 5, 7). There is no increase in KZ99-kplsijpd/CD3-ne g NK cells. Flow analysis is an ancillary study. A definite diagnosis requires correlation with the morphologic features of this process and if necessary, correlation with other ancillary studies like immunohistochemistry , enzyme cytochemistry and/or cyto/ molecular genetics. This test was developed and its performance characteristics determined by the Clinical Flow Cytometry Laboratory at [facility]. It has not been cleared or [...] high complexity clinical laboratory testing. SPECIMEN PROCESSING [id number] Cells for immunophenotypic analysis were derived from [...] cytology but has ??recurred on each occasion. [facility] 02/08/2022 12:5 4 PM EST Gilmer Foster MD PATHOLOGY/CYTOLO GY ORDERABLES [facility] [place] [address] * Body Fluid Culture, Aerobic (02/08/2022 12:54 PM EST) Body Fluid Culture No growth [facility] Gram Stain Cytocentrifuge Gram Stain performed No Neutrophils seen. No microorganisms seen. [facility] Pleural Fluid 02/08/2022 12: 54 PM EST 02/08/2022 2:17 PM EST Comment:Pleural fluid Narrative Resulting Agency Comment Spec In Lab Gilmer Foster MD MICROBIOLOGY - G ENERAL ORDERABLES Performing Organization Address City/[facility]/[place] [address] * Immunophenotyping Flow Cytometry (02/08/2022 12:54 PM EST) Immunophenotyping Flow See Comment [facility] Comment: When completed by the Pathologist, the Flow Cytometry Report ([id number]) will display under the Pathology Results section within [facility]. Other 02/08/2022 12:5 4 PM EST 02/08/2022 2:07 PM EST Narrative Resulting Agency Comment Spec In Lab Gilmer Foster MD HEMATOLOGY ORDER PHILOMENA Performing Organization Address City/[facility]/ZIP Co de Phone Number [facility] [place] [address] * AFB culture Pleural Fluid (02/08/2022 12:54 PM EST) Acid Fast Bacilli Culture No Acid Fast Bacilli isolated If active tuberculosis is suspected, the patient should be on [employer]CA[employer]IONS. Call Infection Prevention for assistance if needed. [facility] Acid Fast Stain No Acid Fast Bacilli seen [facility] Pleural Fluid 02/08/2022 12: 54 PM EST 02/08/2022 2:17 PM EST Comment:Pleural fluid Narrative Resulting Agency Comment Spec In Lab Gilmer Foster MD MICROBIOLOGY - G ENERAL ORDERABLES [facility] [place] [address] * Fungus culture Pleural Fluid (02/08/2022 12:54 PM EST) Fungus Culture No Fungus isolated [facility] Pleural Fluid 02/08/2022 12: 54 PM EST 02/08/2022 2:17 PM EST Comment:Pleural fluid Narrative Resulting Agency Comment Spec In Lab Gilmer Foster MD MICROBIOLOGY - G ENERAL ORDERABLES Performing Organization Address [facility] Co de Phone Number [facility] [place] [address] documented in this encounter Visit Diagnoses Diagnosis [...] subcutaneous injection 5,000 Units 5,000 Units, Subcutaneous, MAINTENANCE ELECTRICIAN TO O.R., 1 dose, On Stephanie 02/08/22 [...] Diaz RN) 0900 (Not Given - Provider: Mlaia Paredes RN - Reason: Patient/family refused) heparin (porcine) (5,000 units/1 mL) subcutaneous injection 5,000 Units (COMPLETED) 5,000 Units, Subcutaneous, MAINTENANCE ELECTRICIAN TO O.R., 1 dose, On Stephanie 02/08/22 at 1130, Not within 60 minutes of placing epidural catheter., Day of Surgery (Day of Procedure), Routine 1130 (Given - Provider: Marcus Kong, CHRISTINA) hydrOXYchloroQUINE (Plaquenil) tablet 200 mg 200 mg, Oral, DAILY, First dose on Sat02/09/22 at 0900, Until Discontinued, Routine 0827 (Given - Provider: Debbie Pride, CHRISTINA) 0836 (Given - Provider: Malia Paredes, CHRISTINA) lidocaine (Lidoderm) 5% patch 1 patch (CANCELED) 1 patch, Transdermal, EVERY 24 HOURS, First dose on Stephanie 02/08/22 at 1830, Until Discontinued, Apply patch(es) for 12 hours, and then remove for 12 hours., Recovery (Recovery-Hospital Unit), Routine 1821 (Patch Applied - Provider: Loreta Decker RN) 1728 (Patch Applied - Provider: Judith Del Angel RN)1830 (Not Given - Provider: Judith Del Angel RN - Reason: See comment - Comment: see 1728 administration) lidocaine (Lidoderm) 5% patch 2 patch(Linked Group 1) 2 patch, Transdermal, EVERY 24 HOURS, First dose (after last modification) on [facility] 02/10/22 at 1830, Until Discontinued, Apply patch(es) for 12 hours, and then remove for 12 hours., Recovery (Recovery-Hospital Unit), Routine lidocaine (Lidoderm) topical patch REMOVAL(Linked Group 1) Transdermal, EVERY 24 HOURS, First dose (after last modification) on [facility] 02/10/22 at 0615, Until Discontinued, Remove lidocaine 5% patch, Recovery (Recovery-Hospital Unit) 0615 (Patch Removed - Provider: Janny Diaz RN) lisinopriL (Zestril) tablet 10 mg 10 mg, Oral, DAILY, First dose on Sat02/09/22 at 0900, Until Discontinued, Routine 0827 (Given - Provider: Debbie Pride RN) 0835 (Given - Provider: Malia Paredes, CHRISTINA) metoprolol succinate XL (Toprol-XL) tablet 25 mg 25 mg, Oral, DAILY, First dose on Sat02/09/22 at 0900, Until Discontinued, DO NOT CRUSH OR OPEN, Routine 08 (Given - Provider: Debbie Pride RN) 0836 (Given - Provider: Malia Paredes RN) pantoprazole EC (Protonix) tablet 40 mg 40 mg, Oral, DAILY, First dose on Sat02/09/22 at 0900, Until Discontinued, DO NOT CRUSH OR OPEN 08 (Given - Provider: Debbie Pride RN) 0836 (Given - Provider: Malia Paredes RN) senna [...] 2100, Until Discontinued, Recovery (Recovery-Hospital Unit), Routine 2046 (Given - Provider: Loreta Decker RN) 0828 (Given - Provider: Debbie Pride RN)2100 (Not Given - Provider: Janny Diaz RN - Reason: See comment) 0837 (Given - Provider: Malia Paredes RN) tamsulosin (Flomax) capsule 0.4 mg 0.4 mg, Oral, DAILY, First dose on Sat02/09/22 at 0900, Until Discontinued, DO NOT CRUSH OR OPEN, Routine 08 (Given - Provider: Debbie Pride [...] Unit) documented in this encounter Care Teams Watch Manufacturing Supervisor Relationship Specialty Start Date End Date Tami Olivia [address] [place] [address] PCP - General Family Medicine 12/30/20 documented as of this encounter
--- OUTSIDE RECORDS SUMMARY | 2023-12-11 23:00 | XMS_ITS | Encounter Summary ---
[facility] Address [facility] [place] [address] Care Team Providers Care Industrial Health And Safety Professor Name Role Phone Tami Olivia Primary Care Provider Encounter Details Date Type Department Care Team (Late st Contact Info) Description 01/30/2022 Telephone [place] [address] Amy Corbett RN Social History Tobacco Use Types Packs/Day [...] Vascular Unit Level 3 [place] [address] Tiera Goldsmith MD [facility] [place] [address] Scheduled Procedures Name Priority Associated Diagnoses Date/Ti me ELECTROPHYSIOLOGY PROCEDURE Persistent atrial fibrillation CARDIOVERSION-ELECTIVE (WRVU 2) persistent atrial fibrillation TRANSESOPHAGEAL ECHOCARDIOGR AM (WRVU 2.3) persistent atrial fibrillation documented as of this encounter Visit Diagnoses Not on filedocumented in this encounter Care Teams Industrial Health And Safety Professor Relationship Specialty Start Date End Date Tami Olivia [address] [place] [address] PCP - General Family Medicine 12/30/20 documented as of this encounter
--- OUTSIDE RECORDS SUMMARY | 2023-12-11 23:00 | XMS_ITS | Encounter Summary ---
Author Organization [facility] [place] [address] Care Team Providers Care Guest Services Officer Name Role Phone Tami Olivia Primary Care Provider [phone] Reason for Referral * Home Health Care (Routine) - Closed Specialty Diagnoses / Procedures Referred By Bert gautam Referred To Contact Diagnoses Mass of upper lobe of left lung Tami Olivia [address] [place] [address] [facility] [address] [place] [address] Referral ID Status Reason Start Date Expiration Date V isits Requested Visits Authorized [id number] Closed Consult, Test & Treat 02/19/2022 08/18/2022 999 999 Reason for Visit * Reason Comments Wound Check (Drain problem) * Auth/Cert (Routine) Specialty Diagnoses / Procedures Referred By Bert gautam Referred To Contact Diagnoses Atrial flutter Procedures EMERGENCY Casa Rm MD [facility] [place] [address] [facility] Referral ID Status Reason Start Date Expiration Date Visits Re quested Visits Authorized [id number] 1 1 Encounter Details Date Type Department Care Team (Latest Contact Info) Description 02/17/2022 12:56 PM EST - 02/21/2022 1:04 PM EST Hospital Encounter Inter[place] [id number] Vazquez Pryor MD [facility] [place] [address] Casa Alarcon MD [facility] [place] [address] Ramon Garcia MD [facility] [place] [address] Atrial flutter (Primary Dx); Mass of upper [...] Rajan Faulkner Patient Age: 71 y.o. Language: Martiniquais Race: White Ethnicity: Not nor Admit date: [...] hypertensive #Hydropneumothorax -Known to Thoracic Surgery at [facility] -Chest tube removed on 02/19/22 -Follow up with Thoracic Surgery in 2 weeks for repeat CXR Inpatient Provider Contact Information: MD Eren Flores PA-C Elise Bishop-Rimmer, PA-C Cardiovascular Medicine [phone] Discharge Diagnoses (Hospital Problems) and Secondary Diagnoses [...] RA. Labs with wbc 10, H&H 11/33, Gxp168, BUN 16, Cr 1. EKG Aflutter with [...] to follow up with Dr. Neeru Vasquez [facility]. He will follow up with [...] you do not miss any doses. Your registered nurse behavioral health will decide if you should stay on [...] of 8AM-5PM please call the Cardiology Clinic [phone] to speak with a nurse. All other hours please call the Hospital Mill Operator Helper [phone] and ask to speak to the sales representative groceries on-call. Follow up Appointments: Doctor Where Phone # Date Time PCP Tami Triana [address] [place] [address] 03/01/22 At 3:30pm Trailer Truck Driver - Dr. oJseph [facility] Cardiology [phone] 03/29/22 At 11:00AM Home oxygen therapy: N/A [...] a nurse in the Thoracic Clinic at [phone]. After hours or on weekends or holidays please call: [phone] and ask to speak to the Thoracic [...] Provider Department Dept Phone 03/06/2022 12:30 PM [facility] DB XRAY ROOM 1 XRay at [facility] Arrive at: Rehabilitation Inspector Area Please go to Rehabilitation Inspector Area 3 ([place] Location). 03/06/2022 1:00 PM Parth Foster MD Thoracic Surgery at [facility] Arrive at: Rehabilitation Inspector Area [phone] Future Orders Complete By Expires Referral to Home Health [REF34 Custom] As directed Process Instructions: If no progress note charted, please enter Clinical details in comments. Scheduling Instructions: Comments: Please evaluate Rajan Faulkner for admission to Home Health. [address] [facility] [address] (home) Date of : 1950 DOCUMENTATION FOR VNA SERVICES (INCLUDING THOSE PATIENTS WITH MEDICARE COVERAGE REQUIRING HOME VNA SERVICES AND/OR HOSPICE SERVICES) PATIENT'S LOCATION: Rajan Faulkner [address] [facility] [address] (home) Cell: Telephone Information: Jowl Trimmer's Name: Eleanor Prado In discussion with the attending physician, it is certified that this patient is under their care and that they, or a Nurse Practitioner,Clinical Nurse specialist or Physician Forestry Laborer who is working directly with them, had [...] status. Resumeprevious services. HOME HEALTH CARE AGENCY: [facility]. [address] [place] [address] PHONE: [phone] FAX: [phone] Start of care: 24-48 hours following discharge [...] Tami Olivia [address] / [place] [address] All VNA agencies which cover the area [...] a nurse in the Thoracic Clinic at [phone]. After hours or on weekends or holidays please call: [phone] and ask to speak to the Thoracic [...] you do not miss any doses. Your registered nurse behavioral health will decide if you should stay on [...] of 8AM-5PM please call the Cardiology Clinic [phone] to speak with a nurse. All other hours please call the Hospital Mill Operator Helper [phone] and ask to speak to the sales representative groceries on-call. Follow up Appointments: Doctor Where Phone # Date Time PCP Tami Olivia [address] [place] [address] 03/01/22 At 3:30pm Trailer Truck Driver - Dr. Joseph [facility] Cardiology [phone] 03/29/22 At 11:00AM Home oxygen therapy: N/A [...] Progress Note Patient Name: Rajan Faulkner Service: DATA KEYER / PA Responsible Attending: Ramon Garcia MD [...] SOB. A-flutter on tele. see scanned documents. HI=871r, Amiodarone gtt started, Mg+ & K+ repleted. See flowsheet for I/O. Safety precaution applied while in bed/OOB. Call w/in reach. PLAN MOVING FORWARD: D/C home tomorrow Continue to monitor per protocol Discharge planning as appropriate * Malia Nieto MD - 02/20/2022 8:[address] [facility] Department of Thoracic Surgery Inpatient Consultation Note [facility]ly [facility] [place] [address] FAX: Patient Name: Rajan Faulkner Patient : 1950 Patient Patient Location: [address] [place] [address] This consultation request was made by: VAZQUEZ PRYOR, RAMON MEADOWS Consulting thoracic surgery attending: PARTH FOSTER MD HPI: Rajan Faulkner is a [...] IR Thoracentesis Left 11/08/2021 Ramírez Ramirez MD [facility] INTERVENTIONL RAD ??? PRO BRONCHOSCOPY, DIAGNOSTIC N/A 03/29/2021 BRONCHOSCOPY, DIAGNOSTIC (WRVU 2.78) performed by Parth Foster MD at [facility] MAIN OR ??? PRO BRONCHOSCOPY, DIAGNOSTIC N/A 02/08/2022 BRONCHOSCOPY, DIAGNOSTIC (WRVU 2.78) performed by Parth Foster MD at [facility] MAIN OR ? ? PRO INJECTION ANES AGENT &/ STEROID INTERCOSTAL NERVE SINGLE LEVEL Left 03/29/2021 NERVE BLOCK, INTERCOSTAL NERVE (WRVU 1.18) performed by Parth Foster MD at [facility] MAIN OR ??? PRO THORACOSCOPY SURG LOBECTOMY Left 03/29/2021 @THORACOSCOPY,SURGICAL,W\LOBECTOMY,TOTAL OR SEGMENTAL (WRVU 24.64) performed by Johana Foster MD at [facility] MAIN OR ??? PRO THORACOSCOPY WITH BIOPSY OF PLEURA Left 02/08/2022 THORACOSCOPY; WITH BIOPSY(IES) OF PLEURA (WRVU 4.58) [facility] ??? PRO THORACOSCOPY WITH MEDIASTINAL AND REGIONAL LYMPHADENECTOMY 03/29/2021 @THORACOSCOPY, SURG; W/MEDIASTINAL& REGIONAL LYMPHADENECTOMY (WRVU 4.12) performed by Parth Foster MD at [facility] MAIN OR ??? PRO THORACOSCOPY WITH WEDGE RESECTION AND ANATOMIC LUNG RESECTN Left 03/29/2021 @THORACOSCOPY, SURG; W/DX WEDGE RESC W/ANATOMIC LUNG RESC (WRVU 3) performed by Johana Foster MD at [facility] MAIN OR Medications: Outpatient Medications Marked [...] on file Review of Systems: Patient denies MT/stroke/TIA/DVT/PE/cancer, problems with kidneys/liver/bleeding/anesthesia, fevers, chills, sweats, weight [...] from 02/17/2022 in Intermediate Cardiac Care Unit [facility] Admission (Discharged) from 02/08/2022 in Short Stay Unit at [facility] Weight 72.7 kg (160 lb 4.4 oz) [...] QTC Calculated (Bezet) 498 ms Calculated P Elora -101 degrees Calculated R Elora 75 degrees Calculated T Elora -88 degrees INTERPRETATION Atrial flutter with 2:1 A-V conduction Minimal voltage criteria for LVH, may be normal variant ( Lowgap product ) Abnormal ECG When compared with ECG of 13-FEB-2021 15:15, Atrial flutter has replaced Sinus rhythm Vent. rate has increased BY [address] now depressed in Inferior leads T wave inversion now evident in Inferior leads Nonspecific T wave abnormality now evident in Lateral leads Confirmed by MD Glenda, Rodger ([id number]) on 02/18/2022 4:23:20 PM Comprehensive metabolic panel [...] QTC Calculated (Bezet) 549 ms Calculated P Elora 89 degrees Calculated R Elora 73 degrees Calculated T Elora -131 degrees INTERPRETATION Atrial flutter with 2:1 A-V conduction Minimal voltage criteria for LVH, may be normal variant Abnormal ECG When compared with ECG of 17-FEB-2022 13:18, (unconfirmed) No significant change was found Confirmed by MD Garcia Daniel ([id number]) on 02/18/2022 1:36:02 PM Echocardiogram Transthoracic Result [...] QTC Calculated (Bezet) 514 ms Calculated R Elora 71 degrees Calculated T Elora -130 degrees INTERPRETATION Atrial flutter with variable [...] QTC Calculated (Bezet) 435 ms Calculated R Elora 90 degrees Calculated T Elora 72 degrees INTERPRETATION Atrial fibrillation Rightward axis [...] QTC Calculated (Bezet) 462 ms Calculated R Elora 78 degrees Calculated T Elora -112 degrees INTERPRETATION Atrial fibrillation with rapid [...] QTC Calculated (Bezet) 500 ms Calculated R Elora 93 degrees Calculated T Elora -81 degrees INTERPRETATION Sinus tachycardia Rightward axis [...] who have questions please contact the health plant care worker that requested your imaging first. Electronically signed by: Matias Mata MD, [facility] ([phone]), at 02/17/2022 2:16 PM XR Chest PA & Lateral (Generic) [...] who have questions please contact the health plant care worker that requested your imaging first. Electronically signed by: Sheeba Woods MD, [facility] ([phone]), at 02/18/2022 6:41 AM XR Chest PA & Lateral (Generic) (Exam End: 02/19/2022 4:53 AM) Impression Stable examination with unchanged size of the left hydropneumothorax. Thank you for letting us participate in the care of this patient. If you are a health care provider and have any questions regarding this report, please contact the number below. For patients who have questions please contact the health plant care worker that requested your imaging first. Electronically signed by: Sheeba Woods MD, [facility] ([phone]), at 02/19/2022 6:55 AM Micro: None Assessment: Rajan Faulkner is a [...] Nieto MD 02/20/2022 Thoracic Surgery Service Pager [phone] * Rosalie Champagne PA - 02/20/2022 7:05 AM EST Images from the original note were not included. Inpatient Cardiology Progress Note Patient Name: Rajan Faulkner Service: DATA KEYER / PA Responsible Attending: Ramon Garcia MD [...] Progress Note Patient Name: Rajan Faulkner Service: DATA KEYER / PA Responsible Attending: Ramon Garcia MD [...] Progress Note Patient Name: Rajan Faulkner Service: DATA KEYER / PA Responsible Attending: Ramon Garcia MD [...] Discussed with MD Eren Flores PA-C Pager [phone] 02/18/2022 Associated attestation - Ramon Garcia MD [...] documented in this encounter H&P Notes * Ankita Barnes MD - 02/17/2022 5:43 PM EST [...] RA. Labs with wbc 10, H&H 11/33, Qpc341, BUN 16, Cr 1. EKG Aflutter with [...] IR Thoracentesis Left 11/08/2021 Ramírez Ramirez MD [facility] INTERVENTIONL RAD ??? PRO BRONCHOSCOPY, DIAGNOSTIC N/A 03/29/2021 BRONCHOSCOPY, DIAGNOSTIC (WRVU 2.78) performed by Parth Foster MD at [facility] MAIN OR ??? PRO BRONCHOSCOPY, DIAGNOSTIC N/A 02/08/2022 BRONCHOSCOPY, DIAGNOSTIC (WRVU 2.78) performed by Parth Foster MD at [facility] MAIN OR ? ? PRO INJECTION ANES AGENT &/ STEROID INTERCOSTAL NERVE SINGLE LEVEL Left 03/29/2021 NERVE BLOCK, INTERCOSTAL NERVE (WRVU 1.18) performed by Parth Foster MD at [facility] MAIN OR ??? PRO THORACOSCOPY SURG LOBECTOMY Left 03/29/2021 @THORACOSCOPY,SURGICAL,W\LOBECTOMY,TOTAL OR SEGMENTAL (WRVU 24.64) performed by Johana Foster MD at [facility] MAIN OR ??? PRO THORACOSCOPY WITH BIOPSY OF PLEURA Left 02/08/2022 THORACOSCOPY; WITH BIOPSY(IES) OF PLEURA (WRVU 4.58) [facility] ??? PRO THORACOSCOPY WITH MEDIASTINAL AND REGIONAL LYMPHADENECTOMY 03/29/2021 @THORACOSCOPY, SURG; W/MEDIASTINAL& REGIONAL LYMPHADENECTOMY (WRVU 4.12) performed by Parth Foster MD at [facility] MAIN OR ??? PRO THORACOSCOPY WITH WEDGE RESECTION AND ANATOMIC LUNG RESECTN Left 03/29/2021 @THORACOSCOPY, SURG; W/DX WEDGE RESC W/ANATOMIC LUNG RESC (WRVU 3) performed by Johana Foster MD at [facility] MAIN OR Significant Family History: Family [...] B/L, no calf tenderness, swelling, or erythema. Neuro/AUTO PARTS MANAGER: AAO x 3, No gross motor deficits. [...] #DVT PPx: Hold Xarelto, start heparin drip Ankita Barnes MD 02/17/2022 Pager # [phone] documented in this encounter ED Notes * [...] left pleural effusion/hemothorax is not significantly changed. Electronically signed by: Matias Mata MD, [facility] ([phone]), at 02/17/2022 2:16 PM ED Course as of 02/17/22 1902 Sat Feb 17, 2022 1430 Patient remains tachycardic to 140s s/p three doses 5 mg metoprolol. Per records, patient was tachycardic to this same range during home health visits this week. Plan for cardiology involvement to discuss further management. 1515 Surgery location director for Thoracic will see the patient in [...] pleural effusion compared to prior. General Surgery, location director for Thoracic Surgery, examined the patient in [...] Contreras MD Resident 02/17/221901 Associated attestation - Vazquez Pryor MD - 02/19/2022 7:41 AM EST [...] & Follow-up Care: Contact information for follow-up [facility] [address] [place] [address] Home [facility], [place] [address] [facility] [address] Transportation: family/friend (Eleanor) Functional status prior to [...] MEDICARE Payor: AAR MANAGED MEDICARE / [facility]TE / Product Type: [...] Donald PA - 02/19/2022 2:[address] [facility] Department of Thoracic Surgery Inpatient Consultation Note [place] [address] FAX: Patient Name: Rajan Faulkner Patient : 1950 Patient Patient Location: [address] [place] [address] This consultation request was made by: VAZQUEZ PRYOR, RAMON MEADOWS Consulting thoracic surgery attending: PARTH FOSTER MD HPI: Rajan Faulkner is a [...] Thoracentesis Left 11/08/2021 Forauer, Ramírez Ziegler MD [facility] INTERVENTIONL RAD ??? PRO BRONCHOSCOPY, DIAGNOSTIC N/A 03/29/2021 BRONCHOSCOPY, DIAGNOSTIC (WRVU 2.78) performed by Parth Foster MD at [facility] OR ??? PRO BRONCHOSCOPY, DIAGNOSTIC N/A 02/08/2022 BRONCHOSCOPY, DIAGNOSTIC (WRVU 2.78) performed by Parth Foster MD at [facility] OR ? ? PRO INJECTION ANES AGENT &/ STEROID INTERCOSTAL NERVE SINGLE LEVEL Left 03/29/2021 NERVE BLOCK, INTERCOSTAL NERVE (WRVU 1.18) performed by Parth Foster MD at [facility] OR ??? PRO THORACOSCOPY SURG LOBECTOMY Left 03/29/2021 @THORACOSCOPY,SURGICAL,W\LOBECTOMY,TOTAL OR SEGMENTAL (WRVU 24.64) performed by Johana Foster MD at [facility] OR ??? PRO THORACOSCOPY WITH BIOPSY OF PLEURA Left 02/08/2022 THORACOSCOPY; WITH BIOPSY(IES) OF PLEURA (WRVU 4.58) performed by Parth Foster MD at [facility] OR ??? PRO THORACOSCOPY WITH MEDIASTINAL AND REGIONAL LYMPHADENECTOMY 03/29/2021 @THORACOSCOPY, SURG; W/MEDIASTINAL& REGIONAL LYMPHADENECTOMY (WRVU 4.12) performed by Parth Foster MD at [facility] OR ??? PRO THORACOSCOPY WITH WEDGE RESECTION AND ANATOMIC LUNG RESECTN Left 03/29/2021 @THORACOSCOPY, SURG; W/DX WEDGE RESC W/ANATOMIC LUNG RESC (WRVU 3) performed by Johana Foster MD at [facility] Medications: Outpatient Medications Marked as Taking for [...] on file Review of Systems: Patient denies MT/stroke/TIA/DVT/PE/cancer, problems with kidneys/liver/bleeding/anesthesia, fevers, chills, sweats, weight [...] from 02/17/2022 in Intermediate Cardiac Care Unit [facility] Admission (Discharged) from 02/08/2022 in Short Stay Unit at [facility] Weight 72.5 kg (159 lb 13.3 oz) [...] QTC Calculated (Bezet) 498 ms Calculated P Elora -101 degrees Calculated R Elora 75 degrees Calculated T Elora -88 degrees INTERPRETATION Atrial flutter with 2:1 [...] Lateral leads Confirmed by MD Glenda, Rodger ([id number]) on 02/18/2022 4:23:20 PM Comprehensive metabolic panel [...] QTC Calculated (Bezet) 549 ms Calculated P Elora 89 degrees Calculated R Elora 73 degrees Calculated T Elora -131 degrees INTERPRETATION Atrial flutter with 2:1 A-V conduction Minimal voltage criteria for LVH, may be normal variant Abnormal ECG When compared with ECG of 17-FEB-2022 13:18, (unconfirmed) No significant change was found Confirmed by MD Garcia Daniel ([id number]) on 02/18/2022 1:36:02 PM Echocardiogram Transthoracic Result [...] QTC Calculated (Bezet) 514 ms Calculated R Elora 71 degrees Calculated T Elora -130 degrees INTERPRETATION Atrial flutter with variable [...] QTC Calculated (Bezet) 435 ms Calculated R Elora 90 degrees Calculated T Elora 72 degrees INTERPRETATION Atrial fibrillation Rightward axis [...] QTC Calculated (Bezet) 462 ms Calculated R Elora 78 degrees Calculated T Elora -112 degrees INTERPRETATION Atrial fibrillation with rapid ventricular response Minimal voltage criteria for LVH, may be normal variant ( Lowgap product ) Nonspecific T wave abnormality Abnormal [...] who have questions please contact the health plant care worker that requested your imaging first. Electronically signed by: Matias Mata MD, [facility] ([phone]), at 02/17/2022 2:16 PM XR Chest PA & Lateral (Generic) [...] who have questions please contact the health plant care worker that requested your imaging first. Electronically signed by: Sheeba Woods MD, [facility] ([phone]), at 02/18/2022 6:41 AM XR Chest PA & Lateral (Generic) (Exam End: 02/19/2022 4:53 AM) Impression Stable examination with unchanged size of the left hydropneumothorax. Thank you for letting us participate in the care of this patient. If you are a health care provider and have any questions regarding this report, please contact the number below. For patients who have questions please contact the health plant care worker that requested your imaging first. Electronically signed by: Sheeba Woods MD, [facility] ([phone]), at 02/19/2022 6:55 AM Micro: None Assessment: Rajan Faulkner is a [...] STEVE Peñaloza 02/19/2022 Thoracic Surgery Service Pager [phone] Associated attestation - Parth Foster MD - 02/20/2022 2:52 PM EST [...] check and PA and lateral chest x-ray. PARTH FOSTER MD * Care Management - Gwyn [...] TBD Patient is insured through: Primary Insurance: [facility] MANAGED MEDICARE Payor: [facility] MANAGED MEDICARE / [facility]: [facility] / Product Type: [...] for further details. STEVE Johnson 02/19/2022 Pager [phone] * Plan of Funmi - Eren Cesar [...] for further details. STEVE Mack 02/18/2022 Pager [phone] * Initial Assessments - Isa Lew RN [...] surrogate would be surrogate decision maker per [place] surrogate decision making law. (Only good for 180 days) Any patient receiving care in [place] must abide by [place] law. The hierarchy for surrogate decision making [...] (i) The agent with financial power of staff attorney or a conservator appointed in accordance [...] Current DME: none Home Address confirmed as: [address] [place] [id number] Social & Family Supports: All names listed below confirmed with patient as current and correct Extended Emergency Contact Information Primary Emergency Contact: ELEANOR RPADO Mobile Relation: Significant Other Current Care Provided by: spouse/significant other (she helps with chest tube.) Provides Primary Care For: no one Quality of Family relationships: supportive, helpful Community Resources being provided currently: homecare agency- followed by [facility] [place] [address] PHONE: [phone] FAX: [phone] Behavioral Health History: none discussed Substance Use/Abuse [...] Pertinent/Service Specific Information: Health/Prescription Coverage: Primary Insurance: [facility] MANAGED MEDICARE Payor: [facility] MANAGED MEDICARE / [facility]: [facility]TE / Product Type: *No Producttype* / Secondary Insurance: N/A ONLY if patient has Medicare A&B - Does this patient have secondary insurance?: Yes ; Prescription Coverage: Yes Preferred Pharmacy: [id number] - [address] [address] Status: Patient is a : No Primary Care Provider confirmed: Tami Olivia [phone] Patient/Caregiver Goals of Treatment: Potential Needs for Transition of Care: home health care Agency Referrals: Resumption of services with: [facility]. [address] [facility] [address] PHONE: [phone] FAX: [phone] He gets RN services for his atrium. [...] with transition of care planning. Covering pager #[phone] for today. * Consult Note - Bi Baez MD - 02/18/2022 10:[address] [facility] Department of Thoracic Surgery Inpatient Consultation Note [facility] [address] [place], [place] [address] FAX: Patient Name: Rajan Faulkner Patient : 1950 Patient Patient Location: [address] [place] [address] This consultation request was made by: VAZQUEZ PRYOR, RAMON MEADOWS Consulting thoracic surgery attending: [...] IR Thoracentesis Left 11/08/2021 Ramírez Ramirez MD [facility] INTERVENTIONL RAD ??? PRO BRONCHOSCOPY, DIAGNOSTIC N/A 03/29/2021 BRONCHOSCOPY, DIAGNOSTIC (WRVU 2.78) performed by Parth Foster MD at [facility] MAIN OR ??? PRO BRONCHOSCOPY, DIAGNOSTIC N/A 02/08/2022 BRONCHOSCOPY, DIAGNOSTIC (WRVU 2.78) performed by Parth Foster MD at [facility] OR ? ? PRO INJECTION ANES AGENT &/ STEROID INTERCOSTAL NERVE SINGLE LEVEL Left 03/29/2021 NERVE BLOCK, INTERCOSTAL NERVE (WRVU 1.18) performed by Parth Foster MD at [facility] OR ??? PRO THORACOSCOPY SURG LOBECTOMY Left 03/29/2021 @THORACOSCOPY,SURGICAL,W\LOBECTOMY,TOTAL OR SEGMENTAL (WRVU 24.64) performed by Johana Foster MD at [facility] MAIN OR ??? PRO THORACOSCOPY WITH BIOPSY OF PLEURA Left 02/08/2022 THORACOSCOPY; WITH BIOPSY(IES) OF PLEURA (WRVU 4.58) performed by Parth Foster MD at [facility] OR ??? PRO THORACOSCOPY WITH MEDIASTINAL AND REGIONAL LYMPHADENECTOMY 03/29/2021 @THORACOSCOPY, SURG; W/MEDIASTINAL& REGIONAL LYMPHADENECTOMY (WRVU 4.12) performed by Parth Foster MD at [facility] MAIN OR ??? PRO THORACOSCOPY WITH WEDGE RESECTION AND ANATOMIC LUNG RESECTN Left 03/29/2021 @THORACOSCOPY, SURG; W/DX WEDGE RESC W/ANATOMIC LUNG RESC (WRVU 3) performed by Johana Foster MD at [facility] MAIN OR Medications: Outpatient Medications Marked [...] on file Review of Systems: Patient denies MT/stroke/TIA/DVT/PE/cancer, problems with kidneys/liver/bleeding/anesthesia, fevers, chills, sweats, weight [...] from 02/17/2022 in Intermediate Cardiac Care Unit [facility] Admission (Discharged) from 02/08/2022 in Short Stay Unit at [facility] Weight 73.3 kg (161 lb 8 oz) [...] QTC Calculated (Bezet) 498 ms Calculated P Elora -101 degrees Calculated R Elora 75 degrees Calculated T Elora -88 degrees INTERPRETATION Atrial flutter with 2:1 [...] QTC Calculated (Bezet) 549 ms Calculated P Elora 89 degrees Calculated R Elora 73 degrees Calculated T Elora -131 degrees INTERPRETATION Atrial flutter with 2:1 A-V conduction Minimal voltage criteria for LVH, may be normal variant ( Lowgap product ) Nonspecific ST and T wave [...] who have questions please contact the health plant care worker that requested your imaging first. Electronically signed by: Matias Mata MD, [facility] ([phone]), at 02/17/2022 2:16 PM XR Chest PA & Lateral (Generic) [...] who have questions please contact the health plant care worker that requested your imaging first. Electronically signed by: Sheeba Woods MD, [facility] ([phone]), at 02/18/2022 6:41 AM Micro: None Assessment: Rajan Faulkner is a [...] Baez MD 02/18/2022 Thoracic Surgery Service Pager [phone] Associated attestation - Anthony Tanner MD - [...] pharmacologic rhythm control strategy Jakob Hogan MD [employer] [id number] * Consult Note - Lacy Rosario MD - 02/17/2022 1:[address] [facility] Department of Surgery Inpatient Consult [...] IR Thoracentesis Left 11/08/2021 Ramírez Ramirez MD [facility] INTERVENTIONL RAD ??? PRO BRONCHOSCOPY, DIAGNOSTIC N/A 03/29/2021 BRONCHOSCOPY, DIAGNOSTIC (WRVU 2.78) performed by Parth Foster MD at [facility] MAIN OR ??? PRO BRONCHOSCOPY, DIAGNOSTIC N/A 02/08/2022 BRONCHOSCOPY, DIAGNOSTIC (WRVU 2.78) performed by Parth Foster MD at [facility] MAIN OR ? ? PRO INJECTION ANES AGENT &/ STEROID INTERCOSTAL NERVE SINGLE LEVEL Left 03/29/2021 NERVE BLOCK, INTERCOSTAL NERVE (WRVU 1.18) performed by Parth Foster MD at [facility] MAIN OR ??? PRO THORACOSCOPY SURG LOBECTOMY Left 03/29/2021 @THORACOSCOPY,SURGICAL,W\LOBECTOMY,TOTAL OR SEGMENTAL (WRVU 24.64) performed by Johana Foster MD at [facility] MAIN OR ??? PRO THORACOSCOPY WITH BIOPSY OF PLEURA Left 02/08/2022 THORACOSCOPY; WITH BIOPSY(IES) OF PLEURA (WRVU 4.58) [facility]?? PRO THORACOSCOPY WITH MEDIASTINAL AND REGIONAL LYMPHADENECTOMY 03/29/2021 @THORACOSCOPY, SURG; W/MEDIASTINAL& REGIONAL LYMPHADENECTOMY (WRVU 4.12) performed by Parth Foster MD at [facility] OR ??? PRO THORACOSCOPY WITH WEDGE RESECTION AND ANATOMIC LUNG RESECTN Left 03/29/2021 @THORACOSCOPY, SURG; W/DX WEDGE RESC W/ANATOMIC LUNG RESC (WRVU 3) performed by Johana Foster MD at [facility] OR Medications No current facility-administered medications on [...] If you have any questions, please page [phone]. [X] Consult service to continue to follow [...] Vascular Unit Level 3 [place] [address] Tiera Goldsmith MD [facility] [place] [address] [address] Scheduled Procedures Name Priority Associated Diagnoses Date/Ti [...] HC CBC,PLT & AUTO DIFF Routine 2 4:29 AM EST HC MAGNESIUM, SERUM Routine [...] EST HC CBC,PLT & AUTO DIFF Routine 4:13 AM EST HC MAGNESIUM, SERUM Routine 02/18/2022 4 :13 AM EST US CARDIAC (SYNC) Routine 02/17/2022 4:5 1 PM EST XR CHEST PA AND LATERAL STAT 02/18/20 2:05 PM EST HEMOGRAM STAT 02/17/2022 1:50 PM EST DIFFERENTIAL, AUTOMATED STAT 02/18/20 1:50 PM EST HC CBC,PLT & AUTO DIFF STAT 1:50 PM EST TSH STAT 02/17/2022 1:50 PM EST HC PHOSPHORUS, SERUM STAT 02/17/2022 1:50 PM EST PRO-BRAIN NATRIURETIC PEPTIDE STAT 02/17/2022 1:50 PM EST HC MAGNESIUM, SERUM STAT 02/17/2022 1 :50 PM EST COMPREHENSIVE METABOLIC PANEL STAT 02/17/2022 1:50 PM EST EKG 12-LEAD STAT 02/17/2022 1:18 PM EST documented in this encounter Results * EKG 12 Lead (02/21/2022 6:21 AM EST) Pathologist [facility] [place] Ventricular rate 124 BPM MUSE SYSTEM Atrial Rate 248 BPM MUSE SYSTEM QRS Duration 104 ms MUSE SYSTEM Q-T Interval 340 ms MUSE SYSTEM QTC Calculated (Bezet) 488 ms MUSE SYSTEM Calculated P [place] 131 degrees MUSE SYSTEM Calculated R [place] 71 degrees MUSE SYSTEM Calculated T [place] -83 degrees MUSE SYSTEM INTERPRETATION Atrial flutter with 2:1 A-V conduction Minimal voltage criteria for LVH, may be normal variant ( Lowgap product ) Nonspecific ST abnormality Abnormal ECG When compared with ECG of 20-FEB-2022 07:59, (unconfirmed) No significant change was found I personally reviewed the tracing and edited the fellows interpretation Confirmed by fellow Rudi Guzmán ([id number]) on 02/22/2022 7:13:33 AM Confirmed by MD Bob, Sloan ([id number]) on 02/24/2022 4:32:44 PM MUSE SYSTEM 02/21/2022 6:21 AM EST 02/24/2022 4:32 PM EST Ankita Barnes MD ECG ORDERABLES MUSE SYSTEM * Scan, Peripheral Blood (02/21/2022 3:56 AM EST) Pathologist [facility] [place] Plat estimate Normal [facility] RBC Morphology Abnormal [facility] Ovalocytes 1-5 /HPF [facility] Blood 02/21/2022 3:56 AM EST 02/21/2022 4:30 AM EST Narrative Resulting Agency Comment Spec In Lab Ankita Barnes MD HEMATOLOGY ORDERABLE S [facility] [place] [address] * (ABNORMAL) Differential, Automated (02/21/2022 3:56 AM EST) Pathologist [facility] [place] Neutrophil % 73.9 % [facility] Neutrophil Absolute 9.07(H) 1.70 - 6.10 x10(3)/mc L [facility] Lymph % 12.0 % [facility] Lymphocytes Abs 1.5 0.9 - 3.2 x10(3)/mc L [facility] Monocyte % 13.1 % [facility] ITAL LABOR[facility] Monocyte Abs 1.6(H) 0.3 - 0.9 x10(3)/ L [facility] Eos % 0.2 % [facility] Eosinophils Abs 0.0 0.0 - 0.4 x10(3)/[facility] LABORATORY Basophil % 0.3 % [facility] ITAL LABORATORY Baso Absolute 0.0 0.0 - 0.1 x10(3)/[facility] LABORATORY Immature Gran % 0.50 % [facility] Comment: Immature granulocytes(IG's)percentage and absolute count will include metamyelocytes, myelocytes, and promyelocytes. Blood smears from CBCs yielding IG's will be scanned manually for concordance. If this scan disagrees with the automated IG or if promyelocytes are noted, a manual differential will be performed. Immature Gran Absolute 0.06(H) 0.00 - 0.04 x10(3)/[facility] LABORATORY Blood 02/21/2022 3:56 AM EST 02/21/2022 4:30 AM EST Narrative Resulting Agency Comment Spec In Lab Ankita Barnes MD HEMATOLOGY ORDERABLE S Performing Organization Address City/State/[facility] Co de Phone Number [facility] [place] [address] * (ABNORMAL) Hemogram (02/21/2022 3:56 AM EST) White Blood Cell 12.3(H) 4.0 - 9.5 x10(3)/ L [facility] Red Blood Cell 3.59(L) 4.58 - 5.54 x10(6)/[facility] LABORATORY Hemoglobin 10.0(L) 13.7 - 16.5 g/dL [facility] Hematocrit 30.2(L) 40.5 - 48.5 % [facility] Mean Cell Volume 84.1 82.9 - 93.1 fL [facility] Mean Cell Hemoglobin 27.9 27.5 - 32.1 pg [facility] Mean Cell Hemoglobin Concentration 33.1 32.0 - 35.7 g/dL [facility] Platelet 310 145 - 357 x10(3)/mc L [facility] RDW Standard Deviation 43.2 36.0 - 45.0 fL [facility] RDW coefficient of variation 13.9(H) 11.4 - 13.8 % [facility] Mean Platelet Volume 9.2 7.6 - 12.9 fL [facility] NRBC% auto 0.0 % [facility] NRBC Absolute 0.000 0.000 - 0.000 x10(3)/mc L [facility] Blood 02/21/2022 3:56 AM EST 02/21/2022 4:30 AM EST Narrative Resulting Agency Comment Spec In Lab Ankita Barnes MD HEMATOLOGY ORDERABLE S Performing Organization Address [facility] Co de Phone Number [facility] [place] [address] * Magnesium (02/21/2022 3:56 AM EST) Magnesium 0.85 0.69 - 1.07 mmol/L [facility] Blood 02/21/2022 3:56 AM EST 02/21/2022 4:30 AM EST Narrative Resulting Agency Comment Spec In Lab Ankita Barnes MD CHEMISTRY ORDERABLES Performing Organization Address [facility] Phone Number [facility] [place] [address] * (ABNORMAL) BMP w/fasting Glucose (02/21/2022 3:56 AM EST) Glucose Fasting 110(H) 65 - 99 mg/dL [facility] Comment: ?Fasting* Glucose Interpretive Criteria Normal [...] of Diabetes Mellitus, Position Statement from the [place] [employer]. ??Diabetes Care, Volume 33, Supplement 1, Mar 2009 Blood Urea Nitrogen 16 10 - 20 mg/dL [facility] Creatinine 1.04 0.80 - 1.50 mg/dL [facility] Sodium 135 135 - 145 mmol/L [facility] Potassium 4.0 3.5 - 5.0 mmol/L [facility] Comment: Please note: ??Patients with WBC >100,000 may have falsely elevated Potassium levels. ??For accurate Potassium quantification in these patients send serum separator tube (gold top) for subsequent determinations. ??Contact the Clinical Chemistry Laboratory if there are any questions. Chloride 101 98 - 107 mmol/L [facility] Carbon Dioxide 24 22 - 31 mmol/L [facility] Anion Gap 10 5 - 15 mmol/L [facility] Calcium 8.9 8.5 - 10.5 mg/dL [facility] Est Glomerular Filtration Rate 76 >=60 mL/min/1. 73 m?? [facility] Comment: This patient's estimated GFR was [...] Narrative Resulting Agency Comment Spec In Lab Ankita Barnes MD CHEMISTRY ORDERABLES [facility] [place] [address] * EKG 12 Lead (02/20/2022 7:59 AM EST) Ventricular rate 140 BPM MUSE SYSTEM Atrial Rate 140 BPM MUSE SYSTEM P-R Interval 176 ms MUSE SYSTEM QRS Duration 98 ms MUSE SYSTEM Q-T Interval 328 ms MUSE SYSTEM QTC Calculated (Bezet) 500 ms MUSE SYSTEM Calculated R [place] 93 degrees MUSE SYSTEM Calculated T [place] -81 degrees MUSE SYSTEM INTERPRETATION Atrial flutter with 2:1 A-V conduction Left posterior fascicular block Minimal voltage criteria for LVH, may be normal variant ( Lowgap product ) Abnormal ECG When compared with ECG of 19-FEB-2022 10:55, Atrial flutter has replaced Atrial fibrillation I personally reviewed the tracing and edited the fellows interpretation Confirmed by fellow Rudi Guzmán ([id number]) on 02/20/2022 4:12:13 PM Confirmed by Cindy [...] small air component. 2. ??Additional unchanged loculated [id number] left pleural effusion. 3. ??Unchanged left lung atelectasis. Thank you for letting us participate in the care of this patient. ??If you are a health care provider and have any questions regarding this report, please contact the number below. ??For patients who have questions please contact the health plant care worker that requested your imaging first. ? Electronically signed by: Yosef Earl MD, [facility] ([phone]), at 02/20/2022 8:52 AM Narrative 02/20/2022 8:52 AM EST EXAMINATION: XR [...] small air component. 2. Additional unchanged loculated [id number]-[id number] left pleuraleffusion. 3. Unchanged left lung atelectasis. Thank you for letting us participate in the care of this patient. If youare a health care provider and have any questions regarding this report,please contact the number below. For patients who have questions please contactthe health plant care worker that requested your imaging first. Ramon Garcia MD IMG DX ORDERABLES * (ABNORMAL) Differential, Automated (02/20/2022 4:29 AM EST) Neutrophil % 71.7 % [facility] Neutrophil Absolute 7.04(H) 1.70 - 6.10 x10(3)/mc L [facility] Lymph % 15.7 % [facility] Lymphocytes Abs 1.5 0.9 - 3.2 x10(3)/ L [facility] Monocyte % 11.9 % [facility] Monocyte Abs 1.2(H) 0.3 - 0.9 x10(3)/ L [facility] Eos % 0.2 % [facility] Eosinophils Abs 0.0 0.0 - 0.4 x10(3)/mc L [facility] Basophil % 0.3 % [facility] Baso Absolute 0.0 0.0 - 0.1 x10(3)/mc L [facility] Immature Gran % 0.20 % [facility] Comment: Immature granulocytes(IG's)percentage and absolute count will include metamyelocytes, myelocytes, and promyelocytes. Blood smears from CBCs yielding IG's will be scanned manually for concordance. If this scan disagrees with the automated IG or if promyelocytes are noted, a manual differential will be performed. Immature Gran Absolute 0.02 0.00 - 0.04 x10(3)/mc L [facility] Blood 02/20/2022 4:29 AM EST 02/20/2022 4:47 AM EST Narrative Resulting Agency Comment Spec In Lab Ankita Barnes MD HEMATOLOGY ORDERABLE S [facility] [place] [address] * (ABNORMAL) Hemogram (02/20/2022 4:29 AM EST) White Blood Cell 9.8(H) 4.0 - 9.5 x10(3)/mc L [facility] Red Blood Cell 3.80(L) 4.58 - 5.54 x10(6)/mc L [facility] Hemoglobin 10.6(L) 13.7 - 16.5 g/dL [facility] Hematocrit 31.6(L) 40.5 - 48.5 % [facility] Mean Cell Volume 83.2 82.9 - 93.1 fL [facility] Mean Cell Hemoglobin 27.9 27.5 - 32.1 pg [facility] Mean Cell Hemoglobin Concentration 33.5 32.0 - 35.7 g/dL [facility] Platelet 295 145 - 357 x10(3)/mc L [facility] RDW Standard Deviation 42.9 36.0 - 45.0 fL [facility] RDW coefficient of variation 14.0(H) 11.4 - 13.8 % [facility] Mean Platelet Volume 9.2 7.6 - 12.9 fL [facility] NRBC% auto 0.0 % [facility] IT[facility] LAB[facility] NRBC Absolute 0.000 0.000 - 0.000 x10(3)/ L [facility] Blood 02/20/2022 4:29 AM EST 02/20/2022 4:47 AM EST Narrative Resulting Agency Comment Spec In Lab Ankita Barnes MD HEMATOLOGY ORDERABLE S Performing Organization Address City/[facility]/ZIP Co de Phone Number [facility] [place] [address] * Magnesium (02/20/2022 4:29 AM EST) Magnesium 0.87 0.69 - 1.07 mmol/L [facility] Blood 02/20/2022 4:29 AM EST 02/20/2022 4:47 AM EST Narrative Resulting Agency Comment Spec In Lab Ankita Barnes MD CHEMISTRY ORDERABLES [facility] [place] [address] * (ABNORMAL) BMP w/fasting Glucose (02/20/2022 4:29 AM EST) [facility] Signature Glucose Fasting 108(H) 65 - 99 mg/dL [facility] Comment: ?Fasting* Glucose Interpretive Criteria Normal [...] of Diabetes Mellitus, Position Statement from the [place] [employer]. ??Diabetes Care, Volume 33, Supplement 1, Mar 2009 Blood Urea Nitrogen 20 10 - 20 mg/dL [facility] Creatinine 1.01 0.80 - 1.50 mg/dL [facility] Sodium 137 135 - 145 mmol/L [facility] Potassium 3.9 3.5 - 5.0 mmol/L [facility] Comment: Please note: ??Patients with WBC >100,000 may have falsely elevated Potassium levels. ??For accurate Potassium quantification in these patients send serum separator tube (gold top) for subsequent determinations. ??Contact the Clinical Chemistry Laboratory if there are any questions. Chloride 103 98 - 107 mmol/L [facility] Carbon Dioxide 23 22 - 31 mmol/L [facility] Anion Gap 11 5 - 15 mmol/L [facility] Calcium 8.7 8.5 - 10.5 mg/dL [facility] Est Glomerular Filtration Rate 79 >=60 mL/min/1. 73 m?? [facility] Comment: This patient's estimated GFR was [...] Narrative Resulting Agency Comment Spec In Lab Ankita Barnes MD CHEMISTRY ORDERABLES Performing Organization Address [facility] Co de Phone Number [facility] [place] [address] * Heparin (unfractionated) Level (02/19/2022 12:35 PM EST) Pathologist [facility] [place] UF Heparin 0.22 IU/mL [facility] Comment: Heparin (anti-Xa) [...] MD HEMATOLOGY ORDERABLE S Performing Organization Address [facility] Co de Phone Number [facility] [place] [address] * EKG 12 Lead (02/19/2022 10:55 AM EST) Ventricular rate 121 BPM MUSE SYSTEM QRS Duration 108 ms MUSE SYSTEM Q-T Interval 326 ms MUSE SYSTEM QTC Calculated (Bezet) 462 ms MUSE SYSTEM Calculated R [place]ora 78 degrees MUSE SYSTEM Calculated T [place] -112 degrees MUSE SYSTEM INTERPRETATION Atrial fibrillation [...] waves in Anterior leads Confirmed by MD Corbett Eric ([id number]) on 02/19/2022 2:57:08 PM MUSE SYSTEM 02/19/2022 10:5 5 AM EST 02/19/2022 2:57 PM EST Ramon Garcia MD ECG ORDERABLES MUSE SYSTEM * EKG 12 Lead (02/19/2022 9:38 AM EST) Ventricular rate 78 BPM MUSE SYSTEM QRS Duration 98 ms MUSE SYSTEM Q-T Interval 382 ms MUSE SYSTEM QTC Calculated (Bezet) 435 ms MUSE SYSTEM Calculated R [place] 90 degrees MUSE SYSTEM Calculated T [place] 72 degrees MUSE SYSTEM INTERPRETATION Likely Normal sinus rhythm with frequent Premature atrial complexes Rightward axis Abnormal ECG When compared with ECG of 19-FEB-2022 06:14, (unconfirmed ) Patient is now in sinus rhythm Vent. rate has decreased BY ??66 BPM T wave inversion now evident in Anterior leads Confirmed by fellow MD Nielsen Daniel ([id number]) on 02/19/2022 10:47:28 AM Confirmed by MD Corbett Eric ([id number]) on 02/20/2022 9:04:52 AM MUSE SYSTEM 02/19/2022 9:38 AM EST 02/20/2022 9:04 AM EST Ankita Barnes MD ECG ORDERABLES MUSE SYSTEM * EKG 12 Lead (02/19/2022 6:14 AM EST) Ventricular rate 144 BPM MUSE SYSTEM Atrial Rate 300 BPM MUSE SYSTEM QRS Duration 90 ms MUSE SYSTEM Q-T Interval 332 ms MUSE SYSTEM QTC Calculated (Bezet) 514 ms MUSE SYSTEM Calculated R [place] 71 degrees MUSE SYSTEM Calculated T [place] -130 degrees MUSE SYSTEM INTERPRETATION Atrial flutter with variable A-V block Minimal voltage criteria for LVH, may be normal variant ( Lowgap product ) Abnormal ECG When compared with ECG of 19-FEB-2022 01:17, (unconfirmed) No significant change was found Confirmed by fellow MD Morales, Ramon ([id number]) on 02/19/2022 10:45:05 AM Confirmed by MD Aric, Emre ([id number]) on 02/20/2022 9:04:43 AM MUSE SYSTEM [...] who have questions please contact the health plant care worker that requested your imaging first. ? Electronically signed by: Sheeba Woods MD, [facility] ([phone]), at 02/19/2022 6:55 AM Narrative 02/19/2022 6:55 AM EST EXAMINATION: XR [...] patients who have questions please contactthe health plant care worker that requested your imaging first. Ramon Garcia MD IMG DX ORDERABLES * Hepatic Function Panel (02/19/2022 4:01 AM EST) Protein, Total 6.7 6.1 - 8.0 g/dL [facility] Albumin 3.3 3.2 - 5.2 g/dL [facility] Aspartate Aminotransferase Not Perf 0 - 39 [facility] Comment: Called by: FRANCISCO, Read back by: Naomie Monteiro, Date/Time:02/19/22 11:59. Unable to quantitate due to sample hemolysis. ??Sample redraw suggested. Alanine Aminotransferase 13 0 - 55 unit/L [facility] Alkaline Phosphatase 72 40 - 130 unit/L [facility] Bilirubin, Total 0.4 0.2 - 1.3 mg/dL [facility] Bilirubin, Direct 0.1 0.0 - 0.3 mg/dL [facility] Blood Venous Draw / Unknown 02/19/2022 4:01 AM EST 02/19/2022 5:01 AM EST Narrative Resulting Agency Comment Spec In Lab Rosalie WILSON CHEMISTRY ORDER PHILOMENA [facility] [place] [address] * (ABNORMAL) Differential, Automated (02/19/2022 4:01 AM EST) Neutrophil % 70.0 % [facility] Neutrophil Absolute 7.63(H) 1.70 - 6.10 x10(3)/mc L [facility] Lymph % 17.6 % [facility] Lymphocytes Abs 1.9 0.9 - 3.2 x10(3)/mc L [facility] Monocyte % 11.2 % [facility] Monocyte Abs 1.2(H) 0.3 - 0.9 x10(3)/mc L [facility] Eos % 0.4 % [facility] Eosinophils Abs 0.0 0.0 - 0.4 x10(3)/mc L [facility] Basophil % 0.4 % [facility] Baso Absolute 0.0 0.0 - 0.1 x10(3)/mc L [facility] Immature Gran % 0.40 % [facility] Comment: Immature granulocytes(IG's)percentage and absolute count will include metamyelocytes, myelocytes, and promyelocytes. Blood smears from CBCs yielding IG's will be scanned manually for concordance. If this scan disagrees with the automated IG or if promyelocytes are noted, a manual differential will be performed. Immature Gran Absolute 0.04 0.00 - 0.04 x10(3)/mc L [facility] Blood 02/19/2022 4:01 AM EST 02/19/2022 5:00 AM EST Narrative Resulting Agency Comment Spec In Lab Ankita Barnes MD HEMATOLOGY ORDERABLE S [facility] [place] [address] * (ABNORMAL) Hemogram (02/19/2022 4:01 AM EST) White Blood Cell 10.9(H) 4.0 - 9.5 x10(3)/mc L [facility] Red Blood Cell 4.19(L) 4.58 - 5.54 x10(6)/mc L [facility] Hemoglobin 11.7(L) 13.7 - 16.5 g/dL [facility] Hematocrit 35.4(L) 40.5 - 48.5 % [facility] Mean Cell Volume 84.5 82.9 - 93.1 fL [facility] Mean Cell Hemoglobin 27.9 27.5 - 32.1 pg [facility] Mean Cell Hemoglobin Concentration 33.1 32.0 - 35.7 g/dL [facility] Platelet 279 145 - 357 x10(3)/mc L [facility] RDW Standard Deviation 43.1 36.0 - 45.0 fL [facility] RDW coefficient of variation 14.0(H) 11.4 - 13.8 % [facility] Mean Platelet Volume 10.1 7.6 - 12.9 fL [facility] NRBC% auto 0.0 % [facility] NRBC Absolute 0.000 0.000 - 0.000 x10(3)/ L [facility] Blood 02/19/2022 4:01 AM EST 02/19/2022 5:00 AM EST Narrative Resulting Agency Comment Spec In Lab Ankita Barnes MD HEMATOLOGY ORDERABLE S [facility] [place] [address] * Heparin (unfractionated) Level (02/19/2022 4:01 AM EST) UF Heparin 0.19 IU/mL [facility] Comment: Specimen drawn more than [...] Narrative Resulting Agency Comment Spec In Lab Ankita Barnes MD HEMATOLOGY ORDERABLE S Performing Organization Address [facility] Co de Phone Number [facility] [place] [address] * Magnesium (02/19/2022 4:01 AM EST) Magnesium 0.82 0.69 - 1.07 mmol/L [facility] Blood 02/19/2022 4:01 AM EST 02/19/2022 5:00 AM EST Narrative Resulting Agency Comment Spec In Lab Ankita Barnes MD CHEMISTRY ORDERABLES Performing Organization Address [facility] de Phone Number [facility] [place] [address] * BMP w/fasting Glucose (02/19/2022 4:01 AM EST) Glucose Fasting 96 65 - 99 mg/dL [facility] Comment: ?Fasting* Glucose Interpretive Criteria Normal [...] of Diabetes Mellitus, Position Statement from the [place] [employer]. ??Diabetes Care, Volume 33, Supplement 1, Mar 2009 Blood Urea Nitrogen 19 10 - 20 mg/dL [facility] Creatinine 1.07 0.80 - 1.50 mg/dL [facility] Sodium 137 135 - 145 mmol/L [facility] Potassium 4.3 3.5 - 5.0 mmol/L [facility] Comment: Please note: ??Patients with WBC >100,000 may have falsely elevated Potassium levels. ??For accurate Potassium quantification in these patients send serum separator tube (gold top) for subsequent determinations. ??Contact the Clinical Chemistry Laboratory if there are any questions. Chloride 101 98 - 107 mmol/L [facility] Carbon Dioxide 23 22 - 31 mmol/L [facility] Anion Gap 13 5 - 15 mmol/L [facility] Calcium 9.4 8.5 - 10.5 mg/dL [facility] Est Glomerular Filtration Rate 74 >=60 mL/min/1. 73 m?? [facility] Comment: This patient's estimated GFR was [...] Narrative Resulting Agency Comment Spec In Lab Ankita Barnes MD CHEMISTRY ORDERABLES [facility] [place] [address] * EKG 12 Lead (02/19/2022 1:17 AM EST) Ventricular rate 137 BPM MUSE SYSTEM Atrial Rate 300 BPM MUSE SYSTEM QRS Duration 96 ms MUSE SYSTEM Q-T Interval 260 ms MUSE SYSTEM QTC Calculated (Bezet) 392 ms MUSE SYSTEM Calculated P Elora 116 degrees MUSE SYSTEM Calculated R Elora 83 degrees MUSE SYSTEM Calculated T Elora -124 degrees MUSE SYSTEM INTERPRETATION Atrial flutter with variable A-V block Nonspecific ST and T wave abnormality Abnormal ECG When compared with ECG of 18-FEB-2022 06:25, No significant change was found Confirmed by fellow MD Morales, Ramon ([id number]) on 02/19/2022 10:44:39 AM Confirmed by MD Aric, Emre ([id number]) on 02/20/2022 9:04:38 AM MUSE SYSTEM 02/19/2022 1:17 AM EST 02/20/2022 9:04 AM EST Ankita Barnes MD ECG ORDERABLES Performing Organization Address City/[facility]/ZIP Co de Phone Number MUSE SYSTEM * Heparin (unfractionated) Level (02/18/2022 7:08 PM EST) UF Heparin 0.06 IU/mL [facility] Comment: Heparin (anti-Xa) [...] Lab Ramon Garcia MD HEMATOLOGY ORDERABLE S [facility] [place] [address] * Heparin (unfractionated) Level (02/18/2022 11:26 AM EST) Pathologist [facility] [place] UF Heparin 0.16 IU/mL [facility] Comment: Heparin (anti-Xa) levels should be [...] Lab Ramon Garcia MD HEMATOLOGY ORDERABLE S [facility] [place] [address] * ECHO COMPLETE W CONTRAST (02/18/2022 10:31 AM EST) Pathologist [facility] [place] EF 52 HEARTLAB SYSTEM Anatomical Region Laterality Modality Cardiac Other 02/18/2022 9:15 AM EST Narrative 02/18/2022 11:39 AM EST ? Version 2 ? Echocardiogram Report Name: RAJAN FAULKNER ?Study Date: 02/18/2022 09:15 AMBP: 126/62 mmHg ? Patient Location: [place] [id number] A : 1950 ? Height: 173 cm ? Account: [id number] Age: 71 yrs ? Weight: 73 kg Gender: Male ?BSA: 1.9 m2 Ordering Physician: ANKITA BARNES Performed By: CONNOR Rankin Reason For Study: Atrial Flutter Exam Location: [facility]. Interpretation Summary Patient is in 2:1 atrial flutter. Left ventricle is normal in size with mild hypertrophy and sigmoid septum. There is probably normal global systolic function; cannot accurately quantify due to signficant tachyarrhythmia. Right ventricle is normal in size and function. Normal left atrial size. No hemodynamically significant valve disease. IVC is non-dilated and non-plethoric. Procedure Complete-[id number]. Image enhancement Optison was used for left [...] Date: 209:15 AMBP: 126/62 mmHg Patient Location: [id number] A : 1950 Height: 173 cm Account: [id number] Age: 71 yrs Weight: 73 kg Gender: Male BSA: 1.9 m2 Ordering Physician: ANKITA BARNES Performed By: CONNOR Rankin Reason For Study: Atrial Flutter Exam Location: [facility]. Interpretation Summary Patient is in 2:1 atrial flutter. Left ventricle is normal in size with mild hypertrophy and sigmoid septum.There is probably normal global systolic function; cannot accurately quantifydue to signficant tachyarrhythmia. Right ventricle is normal in size and function. Normal left atrial size. No hemodynamically significant valve disease. IVC is non-dilated and non-plethoric. Procedure Complete-[id number]. Image enhancement Optison was used for left [...] Dyskinetic 3-5moderate 5 - 6-14large Aneurysmal 15-16diffuse Ankita Barnes MD ECHO ORDERABLES * EKG 12 Lead (02/18/2022 6:25 AM EST) Ventricular rate 145 BPM MUSE SYSTEM Atrial Rate 290 BPM MUSE SYSTEM QRS Duration 92 ms MUSE SYSTEM Q-T Interval 354 ms MUSE SYSTEM QTC Calculated (Bezet) 549 ms MUSE SYSTEM Calculated P Elora 89 degrees MUSE SYSTEM Calculated R Elora 73 degrees MUSE SYSTEM Calculated T Elora -131 degrees MUSE SYSTEM INTERPRETATION Atrial flutter with 2:1 A-V conduction Minimal voltage criteria for LVH, may be normal variant Abnormal ECG When compared with ECG of 17-FEB-2022 13:18, (unconfirmed) No significant change was found Confirmed by MD Radha, Ramon ([id number]) on 02/18/2022 1:36:02 PM MUSE SYSTEM 02/18/2022 6:25 AM EST 02/18/2022 1:36 PM EST Ankita Barnes MD ECG ORDERABLES MUSE SYSTEM * [...] who have questions please contact the health plant care worker that requested your imaging first. ? Electronically signed by: Sheeba Woods MD, [facility] ([phone]), at 02/18/2022 6:41 AM Narrative 02/18/2022 6:41 AM EST EXAMINATION: XR [...] patients who have questions please contactthe health plant care worker that requested your imaging first. Ramon Garcia MD IMG DX ORDERABLES * (ABNORMAL) Differential, Automated (02/18/2022 4:13 AM EST) Neutrophil % 69.7 % [facility] Neutrophil Absolute 6.60(H) 1.70 - 6.10 x10(3)/mc L [facility] Lymph % 18.0 % [facility] Lymphocytes Abs 1.7 0.9 - 3.2 x10(3)/mc L [facility] Monocyte % 11.2 % [facility] Monocyte Abs 1.1(H) 0.3 - 0.9 x10(3)/mc L [facility] Eos % 0.3 % [facility] Eosinophils Abs 0.0 0.0 - 0.4 x10(3)/mc L [facility] Basophil % 0.5 % [facility] Baso Absolute 0.0 0.0 - 0.1 x10(3)/mc L [facility] Immature Gran % 0.30 % [facility] Comment: Immature granulocytes(IG's)percentage and absolute count will include metamyelocytes, myelocytes, and promyelocytes. Blood smears from CBCs yielding IG's will be scanned manually for concordance. If this scan disagrees with the automated IG or if promyelocytes are noted, a manual differential will be performed. Immature Gran Absolute 0.03 0.00 - 0.04 x10(3)/mc L [facility] Blood 02/18/2022 4:13 AM EST 02/18/2022 4:29 AM EST Narrative Resulting Agency Comment Spec In Lab Ankita Barnes MD HEMATOLOGY ORDERABLE S [facility] [place] [address] * (ABNORMAL) Hemogram (02/18/2022 4:13 AM EST) White Blood Cell 9.5 4.0 - 9.5 x10(3)/mc L [facility] Red Blood Cell 4.18(L) 4.58 - 5.54 x10(6)/mc L [facility] Hemoglobin 11.7(L) 13.7 - 16.5 g/dL [facility] Hematocrit 35.8(L) 40.5 - 48.5 % [facility] Mean Cell Volume 85.6 82.9 - 93.1 fL [facility] Mean Cell Hemoglobin 28.0 27.5 - 32.1 pg [facility] Mean Cell Hemoglobin Concentration 32.7 32.0 - 35.7 g/dL [facility] Platelet 280 145 - 357 x10(3)/mc L [facility] RDW Standard Deviation 43.3 36.0 - 45.0 fL [facility] RDW coefficient of variation 14.0(H) 11.4 - 13.8 % [facility] Mean Platelet Volume 9.4 7.6 - 12.9 fL [facility] NRBC% auto 0.0 % [facility] NRBC Absolute 0.000 0.000 - 0.000 x10(3)/ L [facility] Blood 02/18/2022 4:13 AM EST 02/18/2022 4:29 AM EST Narrative Resulting Agency Comment Spec In Lab Ankita Barnes MD HEMATOLOGY ORDERABLE S Performing Organization Address City/[facility] Co de Phone Number [facility] [place] [address] * Magnesium (02/18/2022 4:13 AM EST) Magnesium 0.77 0.69 - 1.07 mmol/L [facility] Blood 02/18/2022 4:13 AM EST 02/18/2022 4:29 AM EST Narrative Resulting Agency Comment Spec In Lab Ankita Barnes MD CHEMISTRY ORDERABLES [facility] [place] [address] * (ABNORMAL) BMP w/fasting Glucose (02/18/2022 4:13 AM EST) Glucose Fasting 83 65 - 99 mg/dL [facility] Comment: ?Fasting* Glucose Interpretive Criteria Normal [...] of Diabetes Mellitus, Position Statement from the [place] [employer]. ??Diabetes Care, Volume 33, Supplement 1, Mar 2009 Blood Urea Nitrogen 15 10 - 20 mg/dL [facility] Creatinine 0.96 0.80 - 1.50 mg/dL [facility] Sodium 135 135 - 145 mmol/L [facility] Potassium 4.2 3.5 - 5.0 mmol/L [facility] Comment: Please note: ??Patients with WBC >100,000 may have falsely elevated Potassium levels. ??For accurate Potassium quantification in these patients send serum separator tube (gold top) for subsequent determinations. ??Contact the Clinical Chemistry Laboratory if there are any questions. Chloride 103 98 - 107 mmol/L [facility] Carbon Dioxide 20(L) 22 - 31 mmol/L [facility] Anion Gap 12 5 - 15 mmol/L [facility] Calcium 9.3 8.5 - 10.5 mg/dL [facility] Est Glomerular Filtration Rate 84 >=60 mL/min/1. 73 m?? [facility] Comment: This patient's estimated GFR was [...] Narrative Resulting Agency Comment Spec In Lab Ankita Barnes MD CHEMISTRY ORDERABLES Performing Organization Address [facility] Co de Phone Number [facility] [place] [address] * Heparin (unfractionated) Level (02/18/2022 4:13 AM EST) UF Heparin 0.12 IU/mL [facility] Comment: Heparin (anti-Xa) [...] MD HEMATOLOGY ORDERABLE S Performing Organization Address [facility] Co de Phone Number [facility] [place] [address] * US Cardiac (POCUS) (02/17/2022 4:51 PM [...] was done:: Not applicable Results:: CPT Code 77679:Limited Basic Cardiac (81177) Electronically Signed by the following Performing: ?on 16:03 Attending: ?on 16:03 PDF Procedure Note Vazquez Pryor MD - 02/21/2022 Exam Information A [...] was done:: Not applicable Results:: CPT Code 23269:Limited Basic Cardiac (26216) Electronically Signed by the following Performing: on 16:03Attending: on 16:03 PDF Vazquez Pryor MD [facility] IMAGES * XR Chest [...] who have questions please contact the health plant care worker that requested your imaging first. ? Electronically signed by: Matias Mata MD, [facility] ([phone]), at 02/17/2022 2:16 PM Narrative 02/17/2022 2:16 PM EST EXAMINATION: XR [...] patients who have questions please contactthe health plant care worker that requested your imaging first. Electronically signed by: Matias Mata MD, [facility]([phone]), at 02/17/2022 2:16 PM Vazquez Pryor MD IMG DX ORDERABLES * TSH (02/17/2022 1:50 PM EST) Thyroid Stimulating Hormone 1.36 0.27 - 4.20 mcIU/mL [facility] Comment: Reference Interval (mcIU/mL): Females: ??First Trimester: 0.23-3.88 ??Second Trimester: 0.22-3.90 ??Third Trimester: 0.44-4.66 Blood Venous Draw / Unknown 02/17/2022 1:50 PM EST 02/17/2022 1:59 PM EST Narrative Resulting Agency Comment Spec In Lab Ankita Barnes MD CHEMISTRY ORDERABLES [facility] [place] [address] * (ABNORMAL) pro-Brain Natriuretic Peptide (02/17/2022 1:50 PM EST) NT-proBNP 3,033(H) <=124 pg/mL [facility] Blood Venous Draw / Unknown 02/17/2022 1:50 PM EST 02/17/2022 1:59 PM EST Narrative Resulting Agency Comment Spec In Lab Ankita Barnes [place] [address] * (ABNORMAL) Differential, Automated (02/17/2022 1:50 PM EST) Neutrophil % 74.6 % [facility] Neutrophil Absolute 7.60(H) 1.70 - 6.10 x10(3)/mc L [facility] Lymph % 13.6 % [facility] Lymphocytes Abs 1.4 0.9 - 3.2 x10(3)/mc L [facility] Monocyte % 10.8 % [facility] Monocyte Abs 1.1(H) 0.3 - 0.9 x10(3)/ L [facility] Eos % 0.3 % [facility] Eosinophils Abs 0.0 0.0 - 0.4 x10(3)/[facility] Basophil % 0.3 % [facility] Baso Absolute 0.0 0.0 - 0.1 x10(3)/mc L [facility] Immature Gran % 0.40 % [facility] Comment: Immature granulocytes(IG's)percentage and absolute count will include metamyelocytes, myelocytes, and promyelocytes. Blood smears from CBCs yielding IG's will be scanned manually for concordance. If this scan disagrees with the automated IG or if promyelocytes are noted, a manual differential will be performed. Immature Gran Absolute 0.04 0.00 - 0.04 x10(3)/mc L [facility] Blood 02/17/2022 1:50 PM EST 02/17/2022 1:58 PM EST Narrative Resulting Agency Comment Spec In Lab Michelle Contreras MD [place] [address] * (ABNORMAL) Hemogram (02/17/2022 1:50 PM EST) White Blood Cell 10.2(H) 4.0 - 9.5 x10(3)/mc L [facility] Red Blood Cell 3.99(L) 4.58 - 5.54 x10(6)/ L [facility] Hemoglobin 11.0(L) 13.7 - 16.5 g/dL [facility] Hematocrit 33.6(L) 40.5 - 48.5 % [facility] Mean Cell Volume 84.2 82.9 - 93.1 fL [facility] Mean Cell Hemoglobin 27.6 27.5 - 32.1 pg [facility] Mean Cell Hemoglobin Concentration 32.7 32.0 - 35.7 g/dL [facility] Platelet 314 145 - 357 x10(3)/mc L [facility] RDW Standard Deviation 43.4 36.0 - 45.0 fL [facility] RDW coefficient of variation 14.0(H) 11.4 - 13.8 % [facility] Mean Platelet Volume 9.2 7.6 - 12.9 fL [facility] NRBC% auto 0.0 % [facility] NRBC Absolute 0.000 0.000 - 0.000 x10(3)/ L [facility] Blood 02/17/2022 1:50 PM EST 02/17/2022 1:58 PM EST Narrative Resulting Agency Comment Spec In Lab Michelle Contreras MD HEMATOLOGY ORDERABLE S Performing Organization Address City/[facility] Co de Phone Number [facility] [place] [address] * Magnesium (02/17/2022 1:50 PM EST) Magnesium 0.74 0.69 - 1.07 mmol/L [facility] Blood 02/17/2022 1:50 PM EST 02/17/2022 1:58 PM EST Narrative Resulting Agency Comment Spec In Lab Vazquez Pryor MD CHEMISTRY ORDERABLE S Performing Organization Address City/[facility] Co de Phone Number [facility] [place] [address] * Phosphorus (02/17/2022 1:50 PM EST) Phosphorus 2.8 2.5 - 4.5 mg/dL [facility] Blood 02/17/2022 1:50 PM EST 02/17/2022 1:58 PM EST Narrative Resulting Agency Comment Spec In Lab Vazquez Pryor MD CHEMISTRY ORDERABLE S [facility] [place] [address] * Comprehensive metabolic panel (non-fasting) (02/17/2022 1:50 PM EST) Glucose 95 65 - 199 mg/dL [facility] Comment:Diabetes: >=200 mg/d L plus symptoms Blood Urea Nitrogen 16 10 - 20 mg/dL [facility] Creatinine 1.04 0.80 - 1.50 mg/dL [facility] Sodium 138 135 - 145 mmol/L [facility] Potassium 4.2 3.5 - 5.0 mmol/L [facility] Comment: Please note: ??Patients with WBC >100,000 may have falsely elevated Potassium levels. ??For accurate Potassium quantification in these patients send serum separator tube (gold top) for subsequent determinations. ??Contact the Clinical Chemistry Laboratory if there are any questions. Chloride 104 98 - 107 mmol/L [facility] Carbon Dioxide 23 22 - 31 mmol/L [facility] Anion Gap 11 5 - 15 mmol/L [facility] Calcium 9.6 8.5 - 10.5 mg/dL [facility] Protein, Total 6.8 6.1 - 8.0 g/dL [facility] Albumin 3.5 3.2 - 5.2 g/dL [facility] Aspartate Aminotransferase 18 0 - 39 unit/L [facility] Alanine Aminotransferase 12 0 - 55 unit/L [facility] Alkaline Phosphatase 67 40 - 130 unit/L [facility] Bilirubin, Total 0.3 0.2 - 1.3 mg/dL [facility] Est Glomerular Filtration Rate 76 >=60 mL/min/1. 73 m?? [facility] Comment: This patient's estimated GFR was [...] Narrative Resulting Agency Comment Spec In Lab Vazquez Pryor MD CHEMISTRY ORDERABLE S Performing Organization Address City/[facility]/ZIP Co de Phone Number [facility] [place] [address] * EKG 12 Lead (02/17/2022 1:18 PM EST) Ventricular rate 142 BPM MUSE SYSTEM Atrial Rate 284 BPM MUSE SYSTEM QRS Duration 96 ms MUSE SYSTEM Q-T Interval 324 ms MUSE SYSTEM QTC Calculated (Bezet) 498 ms MUSE SYSTEM Calculated P Elora -101 degrees MUSE SYSTEM Calculated R [place]ora 75 degrees MUSE SYSTEM Calculated T Elora -88 degrees MUSE SYSTEM INTERPRETATION Atrial flutter with 2:1 A-V conduction Minimal voltage criteria for LVH, may be normal variant ( Lowgap product ) Abnormal ECG When compared with ECG of 13-FEB-2021 15:15, Atrial flutter has replaced Sinus rhythm Vent. rate has increased BY ??[address] now depressed in Inferior leads T wave inversion now evident in Inferior leads Nonspecific T wave abnormality now evident in Lateral leads Confirmed by MD Glenda, Rodger ([id number]) on 02/18/2022 4:23:20 PM MUSE SYSTEM 02/17/2022 1:18 PM EST 02/18/2022 4:23 PM EST Vazquez Pryor MD ECG ORDERABLES Performing Organization Address City/[facility] Co de Phone Number MUSE SYSTEM documented [...] 6 HOURS, 2 doses, First dose on 02/18/22 at 0000, Last dose on 02/18/22 at 0600, Routine Given 02/18/2022 6:28 AM [...] 200 mg, Oral, DAILY, First dose on 02/18/22 at 0900, Until Discontinued, Routine Given 02/21/2022 9:1 4 AM EST 200 mg Given 02/20/2022 8:19 AM EST 200 mg Given 02/19/2022 9:14 AM EST 200 mg ipratropium-albuteroL (Duoneb) 0.5 mg-3 mg(2.5 mg base)/3 mL nebulizer solution 3 mL 3 mL, Nebulization, EVERY 6 HOURS PRN, Starting on 12/10/22 at 2030, Until Sat02/21/22 at 1509, Wheezing, Routine magnesium sulfate 2 g in sterile water 50 mL infusion 2 g, Intravenous, ONCE, 1 dose, On Sat02/19/22 at 0700, Administer over 120 Minutes New [...] Intravenous, EVERY 5 MIN PRN, Starting on Sat02/17/22 at 1354, Until Sat02/19/22 at 1010, Elevated Heart Rate, for HR >120 bpm, Hold for BP <110 mmHg systolic Given 02/17/2022 2:26 PM EST 5 mg Given 02/17/2022 2:18 PM EST 5 mg Given 02/17/2022 2:08 PM EST 5 mg metoprolol tartrate (Lopressor) tablet 12.5 mg 12.5 mg, Oral, EVERY 12 HOURS SCHEDULED (2 times per day), First dose on Sat02/17/22 at 2115, Until Discontinued, Hold for SBP [...] dose on Sat02/18/22 at 0900, Until Discontinued Given 02/21/2022 9:13 AM EST 20 mg Given 02/20/2022 8:19 AM EST 20 mg Given 02/19/2022 9:14 AM EST 20 mg perflutren protein-A microsphers (Optison) (0.22 mg/mL) injection 3 mL 3 mL, Intravenous, ONCE PRN, 1 dose, Starting on Sat02/18/22 at 1031, Until Sat02/18/22 at 1031, prn, Routine Given 02/18/2022 10:31 [...] Provider: Mk Stanford RN - Reason: Patient/family refused)2113 (Given - Provider: Nancy Fleming RN) 0416 (Given - Provider: Nancy Fleming RN)0914 (Given - Provider: Mk Stanford RN) AMIOdarone (Paceron) tablet 400 mg (CANCELED) 400 mg, Oral, 2 TIMES DAILY, First dose on 02/19/22 at 1230, Until Discontinued, Routine 1150 (Given - Provider: Naomie Monteiro RN)2100 (Given - Provider: Nancy Fleming, CHRISTINA) AMIOdarone (Paceron) tablet 400 mg 400 mg, Oral, 2 TIMES DAILY, First dose on Sat02/20/22 at 0930, Until Discontinued, Routine 0852 (Given - Provider: Mk Stanford RN)2112 (Given - Provider: Nancy Fleming RN) 0914 [...] on Sat02/18/22 at 0900, Until Discontinued, Routine 913 (Given - Provider: Naomie Monteiro [...] Fleming RN)0914 (Given - Provider: Naomie Monteiro RN) metoprolol [...] Nancy Fleming RN)1251 (Given - Provider: Radha Gunn RN) pantoprazole EC (Protonix) tablet 20 mg 20 [...] Routine 0915 (Given - Provider: Naomie Monteiro RN)2100 (Given - Provider: Nancy Fleming, CHRISTINA) 0853 (Given - Provider: Mk Stanford RN)2112 (Given - Provider: Nancy Fleming, CHRISTINA) 0915 (Given - Provider: Mk Stanford RN) tamsulosin (Flomax) capsule 0.4 mg 0.4 mg, Oral, DAILY, First dose on 02/18/22 at 0900, Until Discontinued, DO NOT CRUSH OR OPEN, Routine 0914 (Given - Provider: Naomie Monteiro RN) 08 (Given - Provider: Mk Stanford RN) 0914 (Given - Provider: Mk Stanford RN) tiotropium bromide (Spiriva Respimat) 2.5 mcg/actuation inhaler 2 puff 2 puff, Inhalation, DAILY, First dose on 02/18/22 at 0900, Until Discontinued, Must be primed prior to first administration, Routine 0914 (Given - Provider: Naomie Monteiro RN) 0819 (Given - Provider: Mk Stanford RN) 0913 (Given - Provider: Mk Stanford RN) Continuous [...] Heparin UFH Level - Per Protocol, Routine 0570 (New Bag - Provider: Nancy Fleming RN)0949 (Rate/Dose Verify - Provider: Naomie Monteiro RN)1251 [...] 1 MIN PRN, Starting on 02/17/22 at 2023, Until 02/21/22 at 1509, flush, Flush pertains to all [...] Routine documented in this encounter Care Teams Guest Services Officer Relationship Specialty Start Date End Date Aldair-Tami Paz [address] [place] [address] PCP - General Family Medicine 12/30/20 documented as of this encounter
--- OUTSIDE RECORDS SUMMARY | 2023-12-11 23:00 | XMS_ITS | Encounter Summary ---
Author Organization [facility] Address [facility] [place] [address] Care Team Providers Care Waste Specialist Name Role Phone Tami Olivia Primary Care Provider [phone] Reason for Visit * Reason Onset Date Comments Other 02/13/2022 Encounter Details Date Type Department Care Team (Late st Contact Info) Description 02/13/2022 Telephone Thoracic Surgery at [facility] [place] [phone] Megan Reza, RN Other Social History Tobacco [...] IS more as directed yesterday and pulling [phone]. [facility] returning on 02/15/22. Will check in and he will continue to check for his air leak. They knows to call with any questions or concerns. documented in this encounter Plan of Treatment Upcoming Encounters Date Type Department Care Team (Late st Contact Info) Description 12/12/2023 Hospital Encounter Heart and Vascular Unit Level 3 [place] [address] Tiera Goldsmith MD [facility] [place] [address] Scheduled Procedures Name Priority Associated Diagnoses Date/Ti me ELECTROPHYSIOLOGY PROCEDURE Persistent atrial fibrillation CARDIOVERSION-ELECTIVE (WRVU 2) persistent atrial fibrillation TRANSESOPHAGEAL ECHOCARDIOGR AM (WRVU 2.3) persistent atrial fibrillation documented as of this encounter Visit Diagnoses Not on filedocumented in this encounter Care Teams Waste Specialist Relationship Specialty Start Date End Date Tami Olivia [address] [place] [address] PCP - General Family Medicine 12/30/20 documented as of this encounter
--- OUTSIDE RECORDS SUMMARY | 2023-12-11 23:00 | XMS_ITS | Encounter Summary ---
Author Organization [facility] Address [facility] [address] [place] [id number] Care Team Providers Care Milk Deliverer Name Role Phone Tami Olivia Primary Care Provider [phone] Reason for Visit * Auth/Cert (Routine) Specialty Diagnoses / Procedures Referred By Bert t Referred To Contact Diagnoses Pleural effusion, not elsewhere classified Malignant neoplasm of unspecified part of left bronchus or lung pleural effusion Procedures PRO THORACOSCOPY WITH BIOPSY OF PLEURA PRO BRONCHOSCOPY, DIAGNOSTIC THORACOSCOPY; WITH BIOPSY(IES) OF PLEURA (WRVU 4.58) BRONCHOSCOPY, DIAGNOSTIC (WRVU 2.78) Gilmer Gutiérrez MD [facility] [place] [address] [facility] Referral ID Status Reason Start Date Expiration Date Visits Re quested Visits Authorized [id number] 1 1 Encounter Details Date Type Department Care Team (Late st Contact Info) Description 02/08/2022 12:01 PM EST Anesthesia Event [place] [phone] Keerthi Rice MD [facility] [place] [address] Tita Raza MD [facility] [place] [address] Anesthesia Record Procedure Summary Procedure Name Responsible [...] Single Lumen 02/08/22; 1132; brachial vein, right; [id number] catheter system; Anatomical Landmarks; 20 gauge; Kendall [...] Procedure Summary Date: 02/08/22 Room / Location: [facility] OR [address] [place] [address] MAIN OR Anesthesia Start: 1201 Anesthesia Stop: 1401 Procedures: THORACOSCOPY; WITH BIOPSY(IES) OF PLEURA (WRVU 4.58) (Left: Chest) BRONCHOSCOPY, DIAGNOSTIC (WRVU 2.78) Diagnosis: Pleural effusion 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 Patient Location: PACU/[facility] Level of Consciousness: Awake and Alert Pain [...] IR Thoracentesis Left 11/08/2021 Ramírez Ramirez MD [facility] INTERVENTIONL RAD ??? PRO BRONCHOSCOPY, DIAGNOSTIC N/A 03/29/2021 BRONCHOSCOPY, DIAGNOSTIC (WRVU 2.78) performed by Gilmer Gutiérrez MD at [facility] MAIN OR ? ? PRO INJECTION ANES AGENT &/ STEROID INTERCOSTAL NERVE SINGLE LEVEL Left 03/29/2021 NERVE BLOCK, INTERCOSTAL NERVE (WRVU 1.18) performed by Gilmer Gutiérrez MD at [facility] MAIN OR ??? PRO THORACOSCOPY SURG LOBECTOMY Left 03/29/2021 @THORACOSCOPY,SURGICAL,W\LOBECTOMY,TOTAL OR SEGMENTAL (WRVU 24.64) performed by Johana Gutiérrez MD at [facility] MAIN OR ??? PRO THORACOSCOPY WITH MEDIASTINAL AND REGIONAL LYMPHADENECTOMY 03/29/2021 @THORACOSCOPY, SURG; W/MEDIASTINAL& REGIONAL LYMPHADENECTOMY (WRVU 4.12) performed by Gilmer Gutiérrez MD at [facility] MAIN OR ??? PRO THORACOSCOPY WITH WEDGE RESECTION AND ANATOMIC LUNG RESECTN Left 03/29/2021 @THORACOSCOPY, SURG; W/DX WEDGE RESC W/ANATOMIC LUNG RESC (WRVU 3) performed by Johana Gutiérrez MD at [facility] MAIN OR Social History Tobacco Use [...] and adequate venousaccess. Tita Raza MD 02/07/2022 maintenance repairer (Dwayne): chart reviewed, patient interviewed and examined [...] Vascular Unit Level 3 [place] [address] Tiera Goldsmith MD [facility] [place] [address] Scheduled Procedures Name Priority Associated Diagnoses Date/Ti [...] mg documented in this encounter Care Teams Milk Deliverer Relationship Specialty Start Date End Date Tami Olivia [address] [place] [address] PCP - General Family Medicine 12/30/20 documented as of this encounter
--- OUTSIDE RECORDS SUMMARY | 2023-12-11 23:00 | XMS_ITS | Encounter Summary ---
Author Organization [facility] [place] [address] Care Team Providers Care Venture Capital Analyst Name Role Phone Tami Olivia Primary [...] Vascular Unit Level 3 [place] [address] Tiera Goldsmith MD [facility] [place] [address] Scheduled Procedures Name Priority Associated Diagnoses Date/Ti me ELECTROPHYSIOLOGY PROCEDURE Persistent atrial fibrillation CARDIOVERSION-ELECTIVE (WRVU 2) persistent atrial fibrillation TRANSESOPHAGEAL ECHOCARDIOGR AM (WRVU 2.3) persistent atrial fibrillation documented as of this encounter Visit Diagnoses Not on filedocumented in this encounter Care Teams Venture Capital Analyst Relationship Specialty Start Date End Date Tami Olivia [address] [place] [address] PCP - General Family Medicine 12/30/20 documented as of this encounter
--- OUTSIDE RECORDS SUMMARY | 2023-12-11 23:00 | XMS_ITS | Encounter Summary ---
Author Organization [facility] Address [facility] [place] [address] Care Team Providers Care Philosophy Faculty Member Name Role Phone Tami Olivia Primary Care Provider [phone] Encounter Details Date Type Department Care Team [...] Vascular Unit Level 3 [place] [phone] Tiera Goldsmith MD [facility] [place] [address] Scheduled Procedures Name Priority Associated Diagnoses Date/Ti wy ELECTROPHYSIOLOGY PROCEDURE Persistent atrial fibrillation CARDIOVERSION-ELECTIVE (WRVU 2) persistent atrial fibrillation TRANSESOPHAGEAL ECHOCARDIOGR AM (WRVU 2.3) persistent atrial fibrillation documented as of this encounter Visit Diagnoses Not on filedocumented in this encounter Care Teams Philosophy Faculty Member Relationship Specialty Start Date End Date Tami Olivia [address] [place] [address] PCP - General Family Medicine 12/30/20 documented as of this encounter
--- OUTSIDE RECORDS SUMMARY | 2023-12-11 23:00 | XMS_ITS | Encounter Summary ---
Author Organization [facility] [place] [address] Care Team Providers Care Day Care Home Provider Name Role Phone Tami Olivia Primary Care Provider [phone] Reason for Referral * Home Health Care (Routine) - Closed Specialty Diagnoses / Procedures Referred By Bert gautam Referred To Contact Diagnoses Mass of upper lobe of left lung Gilmer Foster MD [facility] [place] [address] Referral ID Status Reason Start Date Expiration Date V isits Requested Visits Authorized [id number] Closed Consult, Test & Treat 02/10/2022 08/09/2022 [...] BRONCHOSCOPY, DIAGNOSTIC (WRVU 2.78) Gilmer Foster MD [facility] [address] [facility] Referral ID Status Reason Start Date Expiration Date Visits Re quested Visits Authorized [id number] 1 1 Encounter Details Date Type Department Care Team (Latest Contact Info) Description 02/08/2022 10:50 AM EST - 02/10/2022 1:20 AM EST Hospital Encounter [place] [address] Gilmer Foster MD [facility] [place] [address] Pleural effusion; Squamous cell carcinoma of left [...] Hospital Course: Rajan Marquez was admitted to [facility] on 02/08/2022 via the [place]. [...] questions please contact the health day care teacher that requested your imaging first. Chest PA & Lateral (Generic) (Exam End: 02/10/2022 5:23 AM) Impression Enlarging left hydropneumothorax. Thank you for letting us participate in the care of this patient. If you are a health care provider and have any questions regarding this report, please contact the number below. For patients who have questions please contact the health day care teacher that requested your imaging first. Electronically signed by: Maryann Magallanes MD, [facility] ([phone]), at 02/10/2022 8:05 AM Pending Studies and [...] a nurse in the Thoracic Clinic at [phone]. After hours or on weekends or holidays please call: [phone] and ask to speak to the Thoracic [...] please call the thoracic surgery clinic at [phone]. Driving: No driving for 1 week or [...] the Thoracic Clinic or the Thoracic Surgeon cook mayonnaise after hours. Please take over the counter [...] our office if you have any questions. [phone] Future Appointments Date Time Provider Department Center 02/10/2022 5:[address] [facility] DX ROOM [address] [facility] Rad General Instructions Keep the Express Mini in an upright position and make sure the tubing stays firmly attached to the end of your chest tube. If it becomes disconnected you will need to reconnect it immediately and tape it securely. If you cannot get it reconnected you will need to go to the Emergency Room at [facility] immediately. Be sure to not [...] contact the Thoracic Surgery office promptly at [phone]. Opioid PDMP 02/13/2021 [place] PDMP Query Date [...] Expires XR Chest PA & Lateral (Generic) [[id number] Custom] 02/23/2022 08/25/2022 Process Instructions: Scheduling Instructions: Questions: Reason for exam and clinical history: s/p left VATS pleural biopsy Clinical information / bryan questions for radiologist: ?interval change Where will study be performed?: [facility] Radiology Portable exam?: Stat read required?: Date of injury if applicable: Requested Time: XR Chest PA & Lateral (Generic) [[id number] Custom] 02/24/2022 (Approximate) 08/26/2022 Process Instructions: Scheduling Instructions: Questions: Reason for exam and clinical history: s/p left vats pleural biopsy Clinical information / bryan questions for radiologist: eval for ptx and or effusion Where will study be performed?: [facility] Radiology Portable exam?: Stat read required?: Date of injury if applicable: Requested Time: Referral to Home Health [REF34 Custom] As directed Process Instructions: If no progress note charted, please enter Clinical details in comments. Scheduling Instructions: Comments: Please evaluate Rajan Marquez for admission to Home Health. [address] [facility] [address] Phone Number: mobile [phone] Date of : 1950 Inpatient DOCUMENTATION FOR VNA SERVICES (INCLUDING THOSE PATIENTS WITH MEDICARE COVERAGE REQUIRING HOME VNA SERVICES AND/OR HOSPICE SERVICES) PATIENT'S LOCATION: Rajan Bravo [facility] [address] [place] [phone] [employer] Precinct's Name: self/family In discussion with the attending physician, it is certified that this patient is under their care and that they, or a Nurse Practitioner,Clinical Nurse specialist or Physician Junior Sales Assistant who is working directly with them, had [...] Emergency Room or the Emergency Room at [facility] immediately. Check the Atrium Express [...] your scheduled appointment. HOME HEALTH CARE AGENCY: [facility] [place] [address] [place] [address] PHONE: [phone] FAX: [phone] Start of care: within 24 to 48 hours of discharge Please note that any additional orders needs or changes will need to be obtained from this patient's PCP: Tami Olivia [address] / [place] [address] All VNA agencies which cover the area of patient's residence have been reviewed, either verbally crow writing, and patient/family have chosen the home health care agency noted Questions: Disciplines Requested: Nursing Provider Contact Information: Primary Care Provider: Tami Olivia [phone] Discharge References/Attachments: Discharge References/Attachments None For questions regarding this document or issues relating to this hospitalization on the Thoracic Surgery Service, please contact Dr. Foster's office at . Signed: STEVE Black 02/10/2022 Thoracic Surgery [facility] CC: PCP: Tami Olivia Referring: Tami Olivia [address] [place] [address] documented in this encounter Discharge Instructions * [...] to go to the Emergency Room at [facility] immediately. Be sure to not [...] and contact Dr. Gilmer Cardozo office at [phone] if the amount increases by [phone] cc [...] contact the Thoracic Surgery office promptly at [phone]. * Patient Instructions* Camilo Stevenson PA - 02/09/2022 11:12 AM EST Call if you have a fever of greater than 101 degrees, shaking chills, develop redness or drainage from your incision site(s), or if you have questions. During normal business hours, Saturday- Saturday 8:00 a.m.-5:00 p.m., please call to speak to a nurse in the Thoracic Clinic at [phone]. After hours or on weekends or holidays please call: [phone] and ask to speak to the Thoracic [...] please call the thoracic surgery clinic at [phone]. Driving: No driving for 1 week or [...] the Thoracic Clinic or the Thoracic Surgeon cook mayonnaise after hours. Please take over the counter [...] our office if you have any questions. [phone] Future Appointments Date Time Provider Department Center 02/10/2022 5:[address] [facility] DX ROOM [address] [facility] Rad documented in this encounter Medications [...] Paredes RN - 02/10/2022 1:[address] [facility] Short Stay Unit Discharge Note All [...] Baez MD - 02/09/2022 8:53 AM EST [facility] Department of Thoracic Surgery Inpatient Progress Note Patient Name: Rajan Marquez Patient : 1950 Patient Patient Location: [facility] Attending Surgeon: GILMER FOSTER ID: Rajan Marquez [...] OfficeVisit from 01/29/2022 in Thoracic Surgery at [facility] Weight 75.8 kg [...] Result Value Ref Range Surgical Pathology Report [id number] Location: OR; OR22; A The signing pathologist has (i) examined the relevant preparation(s) for the specimen(s) and (ii) rendered or confirmed the diagnosis(es). . Frozen Section FROZEN SECTION DIAGNOSIS AFS - Left pleural biopsy, for frozen section (2 blocks): Atypical cells, cannot exclude malignancy, defer to permanent. 02/08/22 13:26 Electronically signed by: Malia Lacy MD Verified: 02/08/2022 13:50 Pathologist Performed at: -[facility] Dept. of Pathology, [place] [address] News Analyst: Maria Ines Marrufo MD, FCAP, [place] Certificate: [id number] This intraoperative consultation should be interpreted as [...] questions please contact the health day care teacher that requested your imaging first. Micro: Procedure Component Value Units Date/Time Fungus culture Pleural Fluid [[id number]] Collected: 02/08/221253 Lab Status: Preliminary result Specimen: Pleural Fluid Updated: 02/09/22 08 Fungus Culture No Fungus isolated to date Body Fluid Culture, Aerobic & Anaerobic Pleural Fluid [[id number]] Collected: 02/08/221253 Lab Status: Preliminary result Specimen: Pleural Fluid Updated: 02/09/2243 Body Fluid Culture, Aerobic [[id number]] Collected: 02/08/221253 Lab Status: Preliminary result Specimen: [...] Baez MD 02/09/2022 Thoracic Surgery Service Pager [phone] * Debbie Pride RN - 02/09/2022 8:44 [...] dressing is CDI. 0700: Report given to SUPERVISOR HAND WORKERSDebbie VASQUEZ. Care assumed. * Juanita Sotomayor RN [...] Thoracentesis Left 11/08/[address] [facility] INTERVENTIONL RAD ??? PRO BRONCHOSCOPY, DIAGNOSTIC N/A 03/29/2021 BRONCHOSCOPY, DIAGNOSTIC (WRVU 2.78) performed by Gilmer Foster MD at [facility] OR ? ? PRO INJECTION ANES AGENT &/ STEROID INTERCOSTAL NERVE SINGLE LEVEL Left 03/29/2021 NERVE BLOCK, INTERCOSTAL NERVE (WRVU 1.18) performed by Gilmer Foster MD at [facility] OR ??? PRO THORACOSCOPY SURG LOBECTOMY Left 03/29/2021 @THORACOSCOPY,SURGICAL,W\LOBECTOMY,TOTAL OR SEGMENTAL (WRVU 24.64) performed by Johana Foster MD at [facility] OR ??? PRO THORACOSCOPY WITH MEDIASTINAL AND REGIONAL LYMPHADENECTOMY 03/29/2021 @THORACOSCOPY, SURG; W/MEDIASTINAL& REGIONAL LYMPHADENECTOMY (WRVU 4.12) performed by Gilmer Foster MD at [facility] OR ??? PRO THORACOSCOPY WITH WEDGE RESECTION AND ANATOMIC LUNG RESECTN Left 03/29/2021 @THORACOSCOPY, SURG; W/DX WEDGE RESC W/ANATOMIC LUNG RESC (WRVU 3) performed by Johana Foster MD at [facility] OR MEDS: No current facility-administered medications on [...] Nieto MD 02/08/2022 Thoracic Surgery Service Pager [phone] documented in this encounter Miscellaneous Notes * [...] information for follow-up [facility] Health [facility] H[facility], [place] [address] [facility] [address] Transportation: family or friend will provide Wheelchair van/Ambulance? No Functional status prior to admission: Independent Home Environment: Others in the home: significant other. Current Living Arrangements: home/apartment/condo. Accessibility Concerns:none noted. Current Functional Ability: DME used at home: none DME Needed at Discharge: Mini atrium Patient is insured through: Primary Insurance: [facility] MANAGED MEDICARE Payor: [facility] MANAGED MEDICARE / [facility] / Product Type: *No Producttype* / Secondary Insurance: N/A Prescription Coverage: Yes This plan was formulated with input from patient, and team. All are in agreement with plan. Natanael Sims RN, BSN CM Case Management [phone] * Care Management - Melania Salinas RN - 02/09/2022 2:26 PM EST RN/CM has reviewed with provider team. Admit: 02/08/2022 with anticipated discharge: 02/10/2022. Pt remains OBS status at this time. Pending UM review later today. Christie Salinas RN (Jonas) RN/CM - Cellphone: [phone] Pager: [phone] Covering Service RN/CM * Initial Assessments - [...] surrogate would be surrogate decision maker per [place] surrogate decision making law. (Only good for 180 days) Any patient receiving care in [place] must abide by [place] law. The hierarchy for surrogate decision making [...] (i) The agent with financial power of state's attorney or a conservator appointed in accordance [...] Current DME: none Home Address confirmed as: [address] [place] [address] Social & Family Supports: All names listed [...] points: Addiction likely Health/Prescription Coverage: Primary Insurance: [facility] MANAGED MEDICARE Payor: [facility] MANAGED MEDICARE / Plan: [facility] COMPLETE / Product Type: *No Producttype* / Secondary Insurance: N/A ; Prescription Coverage: Yes Preferred Pharmacy: [facility] - [place], [place] - [address] [place] [id number] [place] Status: Patient is a : No Primary Care Provider listed: Tami Olivia [phone] Patient/Caregiver Goals of Treatment: Return home with [...] are placed. Patient requests referral to : [facility] [address] Vas[address] [facility] [address] PHONE: [phone] FAX: [phone] Expected date of discharge: 02/09/2022 vs 02/10/2022 Referral routed to the Supervisor [employer] for matching with agency/vendor and to provide [...] planningCecilia Salinas RN (Jonas) RN/CM - Cellphone: [phone] Pager: [phone] Covering Service RN/CM * Op Note - Gilmer Foster MD - 02/08/2022 12:40 PM EST [facility] Operative Note Patient Name: Rajan Marquez : [id number] MR#: [id number] Case Date: 02/08/2022 Surgeon: Surgeon(s) and Role: [...] tissue samples (in container) 1 Drains: 28 Panamanian chest tube, left Surgical Closure: Primary Closure [...] copiously with warm normal saline. A 28 Panamanian chest tube was placed through the anterior [...] Vascular Unit Level 3 [place] [address] Tiera Goldsmith MD [facility] [place] [address] Scheduled Procedures Name Priority Associated Diagnoses Date/Ti [...] TO PATHOLOGY Routine 02/08/2022 1:15 PM EST NON-OR SCRUB TECH FINAL REPORT Routine 02/08/2022 1:10 PM EST [...] Routine 02/08/2022 12:54 PM EST Bronchoscopy, Diagnostic (17148) 02/08/2022 12:00 PM EST Pleural effusion Squamous [...] questions please contact the health day care teacher that requested your imaging first. ? Narrative [...] have questions please contactthe health day care teacher that requested your imaging first. Gilmer Foster [...] questions please contact the health day care teacher that requested your imaging first. ? Electronically signed by: Maryann Magallanes MD, [facility] ([phone]), at 02/10/2022 8:05 AM Narrative 02/10/2022 8:05 [...] have questions please contactthe health day care teacher that requested your imaging first. Gilmer Foster [...] questions please contact the health day care teacher that requested your imaging first. ? Narrative [...] have questions please contactthe health day care teacher that requested your imaging first. Gilmer Foster MD IMG DX ORDERABLE S * Specimen to Pathology (02/08/2022 1:15 PM EST) AP Specimen 02/08/2022 1:15 PM EST 02/08/2022 1:15 PM EST Narrative [facility] - 02/08/2022 1:15 PM EST Specimen requisition ordered. ??Separate Pathology report to follow Gilmer Foster MD PATHOLOGY/CYTOLO GY ORDERABLES [facility] [place] [address] * Non-Nurse Staff Industrial Final Report (02/08/2022 1:10 PM EST) Diagnosis Discussion [id number] ? Location: [facility]; The signing pathologist has (i) examined the relevant preparation(s) for the specimen(s) and (ii) rendered or confirmed the diagnosis(es). . ? Non-Nurse Staff Industrial Final DIAGNOSIS See Discussion Electronically signed by: ?Asher FLORES, Rory Swann Verified: ??02/10/2022 17:36 ??Cytopathologis t Performed at: ??-[facility] Dept. of Pathology, [place] [address] News Analyst: Maria Ines Marrufo MD, [facility], ??[place] Certificate: [id number] DISCUSSION Pleural fluid: left (thoracentesis) - Predominantly [...] Cell Block 1. 02/10/2022 5:36 PM EST [facility] LEFT PLEURAL FLUID / Unknown 02/08/2022 1:10 PM EST 02/08/2022 1:10 PM EST Gilmer Foster MD PATHOLOGY/CYTOLO GY ORDERABLES Performing Organization Address [facility] Co de Phone Number [facility] [place] [phone] * Cytopathology Non-Gynecological (02/08/2022 1:10 PM EST) AP Specimen 02/08/2022 1:10 PM EST 02/08/2022 1:10 PM EST Narrative [facility] - 02/08/2022 1:10 PM EST Specimen requisition ordered. ??Separate Pathology report to follow Gilmer Foster MD PATHOLOGY/CYTOLO GY ORDERABLES Performing Organization Address [facility] Co de Phone Number [facility] [place] [phone] * Surgical Pathology Report (02/08/2022 1:01 PM EST) Final Diagnosis [id number] ? Location: [facility]; A The signing pathologist has (i) examined [...] DO Verified: ??02/16/2022 10:09 ??Pathologist Performed at: ??-[facility] Dept. of Pathology, [place] [address] News Analyst: Maria Ines Marrufo MD, FCAP, ??CLIA Certificate: [id number] DISCUSSION No malignancy is identified. ??The morphology [...] A2 ?CK20 ?Negative A2 ?CDX2 ?Negative A2 ?RSJ8vpvj ?Negative A2 ?Calretinin ?Rare positive cell (high [...] of soft, pink-white membranous tissue fragments. Sections/Processing: Software Security Consultant sections in 2 cassettes labeled B1-B2. ??sns ?Frozen Section FROZEN SECTION DIAGNOSIS AFS - Left pleural biopsy, ?? for frozen section (2 blocks): Atypical cells, cannot exclude malignancy, defer to permanent. 02/08/22 13:26 Electronically signed by: ?Malia Lacy MD Verified: ??02/08/2022 13:50 ??Pathologist Performed at: ??-[facility] Dept. of Pathology, [place] [address] News Analyst: Maria Ines Marrufo MD, FCAP, ??CLIA Certificate: [id number] This intraoperative consultation should be interpreted as a preliminary diagnosis pending review of the entire specimen and special studies, if any. A final Surgical Pathology report will follow this preliminary Frozen Section report(s). 02/16/2022 10:09 AM EST [facility] Frozen Specimen 02/08/2022 1 :01 PM EST 02/08/2022 1:01 PM EST Pleura 02/08/2022 1:01 PM EST 02/08/2022 1:01 PM EST Gilmer Foster MD PATHOLOGY/CYTOLO GY ORDERABLES [facility] [place] [address] * Specimen to Pathology (02/08/2022 1:01 PM EST) AP Specimen 02/08/2022 1:01 PM EST 02/08/2022 1:01 PM EST Narrative [facility] - 02/08/2022 1:01 PM EST Specimen requisition ordered. ??Separate Pathology report to follow Gilmer Foster MD PATHOLOGY/CYTOLO GY ORDERABLES [facility] [place] [address] * Flow Cytometry Report (02/08/2022 12:54 PM EST) Pathologist [facility] Flow Cytometry Report [id number] ? Location: [facility]; A The signing pathologist has (i) examined [...] MD Verified: ??02/09/2022 16:30 ??Hematopathologist Performed at: ??-[facility] Dept. of Pathology, [place] [address] News Analyst: Maria Ines Marrufo MD, FCAP, ??CLIA Certificate: [id number] DISCUSSION Blasts based on CD45 expression and orthogonal light scatter, are not increased. The CD19 positive B-cells have a polytypic expression of surface immunoglobulin light chain (Robert Lee:Lambda ratio at 1.7). The T-cells are an admixture of CD4+ and CD8+ T lymphocytes (ratio of 1.6). No loss or atypical intensity distributions are seen for any nixon T antigen (CD2, 3, 4+8, 5, 7). There is no increase in QL44-agsdykbe/CD3-ne g NK cells. Flow analysis is an ancillary study. A definite diagnosis requires correlation with the morphologic features of this process and if necessary, correlation with other ancillary studies like immunohistochemistry , enzyme cytochemistry and/or cyto/ molecular genetics. This test was developed and its performance characteristics determined by the Clinical Flow Cytometry Laboratory at [facility]. It has not been cleared or approved [...] high complexity clinical laboratory testing. SPECIMEN PROCESSING [id number] Cells for immunophenotypic analysis were derived from [...] cytology but has ??recurred on each occasion. [facility] 02/08/2022 12:5 4 PM EST Gilmer Foster MD PATHOLOGY/CYTOLO GY ORDERABLES Performing Organization Address [facility] Co de Phone Number [facility] [place] [address] * Body Fluid Culture, Aerobic (02/08/2022 12:54 PM EST) Body Fluid Culture No growth [facility] Gram Stain Cytocentrifuge Gram Stain performed No Neutrophils seen. No microorganisms seen. [facility] Pleural Fluid 02/08/2022 12: 54 PM EST 02/08/2022 2:17 PM EST Comment:Pleural fluid Narrative Resulting Agency Comment Spec In Lab Gilmer Foster MD MICROBIOLOGY - G ENERAL ORDERABLES Performing Organization Address [facility] de Phone Number [facility] [place] [address] * Immunophenotyping Flow Cytometry (02/08/2022 12:54 PM EST) Immunophenotyping Flow See Comment [facility] Comment: When completed by the Pathologist, the Flow Cytometry Report ([id number]) will display under the Pathology Results section within [facility]. Other 02/08/2022 12:5 4 PM EST 02/08/2022 2:07 PM EST Narrative Resulting Agency Comment Spec In Lab Gilmer Foster MD HEMATOLOGY ORDER PHILOMENA Performing Organization Address [facility] Co de Phone Number [facility] [place] [address] * AFB culture Pleural Fluid (02/08/2022 12:54 PM EST) Acid Fast Bacilli Culture No Acid Fast Bacilli isolated If active tuberculosis is suspected, the patient should be on [employer] PRECAUTIONS. Call Infection Prevention for assistance if needed. [facility] Acid Fast Stain No Acid Fast Bacilli seen [facility] Pleural Fluid 02/08/2022 12: 54 PM EST 02/08/2022 2:17 PM EST Comment:Pleural fluid Narrative Resulting Agency Comment Spec In Lab Gilmer Foster MD MICROBIOLOGY - [place] [address] * Fungus culture Pleural Fluid (02/08/2022 12:54 PM EST) Fungus Culture No Fungus isolated [facility] Pleural Fluid 02/08/2022 12: 54 PM EST 02/08/2022 2:17 PM EST Comment:Pleural fluid Narrative Resulting Agency Comment Spec In Lab Gilmer Foster MD MICROBIOLOGY - G ENERAL ORDERABLES Performing Organization Address City/[facility]/ZIP [place] [address] documented in this encounter Visit Diagnoses Diagnosis [...] subcutaneous injection 5,000 Units 5,000 Units, Subcutaneous, UNIONMELT OPERATOR TO O.R., 1 dose, On Stephanie 02/08/22 [...] medications are indicated., Recovery (Recovery-Hospital Unit), Routine 182 (Given - Provider: Loreta Decker RN)2340 (Given [...] injection 5,000 Units (COMPLETED) 5,000 Units, Subcutaneous, UNIONMELT OPERATOR TO O.R., 1 dose, On Stephanie 02/08/22 at 1130, Not within 60 minutes of placing epidural catheter., Day of Surgery (Day of Procedure), Routine 1130 (Given - Provider: Marcus Kong, CHRISTINA) hydrOXYchloroQUINE (Plaquenil) tablet 200 mg 200 mg, Oral, DAILY, First dose on Sat02/09/22 at 0900, Until Discontinued, Routine 08 (Given - Provider: Debbie Pride RN) 0836 (Given - Provider: Malia Paredes RN) lidocaine (Lidoderm) 5% patch 1 patch (CANCELED) [...] HOURS, First dose (after last modification) on [facility] 02/10/22 at 1830, Until Discontinued, Apply patch(es) for 12 hours, and then remove for 12 hours., Recovery (Recovery-Hospital Unit), Routine lidocaine (Lidoderm) topical patch REMOVAL(Linked Group 1) Transdermal, EVERY 24 HOURS, First dose (after last modification) on [facility] 02/10/22 at 0615, Until Discontinued, Remove [...] on Sat02/09/22 at 1700, Until Discontinued, Routine 172 (Given - Provider: Judith Del Angel RN) [...] Routine 1217 (Given - Provider: Judith Del Angel, CHRISTINA) 0834 (Given - Provider: Malia Paredes RN) [...] Unit) documented in this encounter Care Teams Day Care Home Provider Relationship Specialty Start Date End Date Tami Olivia [address] [place] [address] PCP - General Family Medicine 12/30/20 documented as of this encounter
--- OUTSIDE RECORDS SUMMARY | 2023-12-11 23:00 | XMS_ITS | Encounter Summary ---
Author Organization [facility] Address [facility] [place] [address] Care Team Providers Care Steel Rule Die Maker Name Role Phone Tami Olivia Primary Care Provider [phone] Encounter Details Date Type Department Care Team (Late st Contact Info) Description 01/29/2022 2:00 PM EST Office Visit Thoracic Surgery at [facility] [place] [address] Gilmer Gutiérrez MD [facility] [place] [address] Pleural effusion; Squamous cell carcinoma of left [...] and drinking. Your procedure will occur in music grapher area 4W. YOU WILL NEED TO STOP [...] at home before you are discharged : [id number] mg alternate with ibuprofen 200 mg (2-3 [...] encounter Progress Notes * Loreta Terrell V, EDGE BONDER - 01/29/2022 2:00 PM EST Thoracic Surgery Attending Outpatient Follow Up Note Gilmer Gutiérrez MD [place] [address] FAX: Chief complaint: Follow up LULobectomy, recurrent [...] this thoracentesis. He was seen by his principal engineer in December who repeated a CT Chest [...] concerns Loreta Terrell APRN 01/29/22 Thoracic Surgery [facility] * Gilmer Gutiérrez MD - 01/29/2022 2:00 [...] Vascular Unit Level 3 [place] [address] Tiera Goldsmith MD [facility] [place] [place] [address] Scheduled Procedures Name Priority Associated Diagnoses Date/Ti me ELECTROPHYSIOLOGY PROCEDURE Persistent atrial fibrillation CARDIOVERSION-ELECTIVE (WRVU 2) persistent atrial fibrillation TRANSESOPHAGEAL ECHOCARDIOGR AM (WRVU 2.3) persistent atrial fibrillation documented as of this encounter Results * (ABNORMAL) Comprehensive metabolic panel (non-fasting) (04/16/2022 2:10 PM EST) Glucose 98 65 - 199 mg/dL [facility] Comment:Diabetes: >=200 mg/d L plus symptoms Blood Urea Nitrogen 19 10 - 20 mg/dL [facility] Creatinine 1.20 0.80 - 1.50 mg/dL [facility] Sodium 135 135 - 145 mmol/L [facility] Potassium 4.8 3.5 - 5.0 mmol/L [facility] Comment: Please note: ??Patients with WBC >100,000 may have falsely elevated Potassium levels. ??For accurate Potassium quantification in these patients send serum separator tube (gold top) for subsequent determinations. ??Contact the Clinical Chemistry Laboratory if there are any questions. Chloride 97(L) 98 - 107 mmol/L [facility] Carbon Dioxide 25 22 - 31 mmol/L [facility] Anion Gap 13 5 - 15 mmol/L [facility] Calcium 10.7(H) 8.5 - 10.5 mg/dL [facility] Protein, Total 7.3 6.1 - 8.0 g/dL [facility] Albumin 3.8 3.2 - 5.2 g/dL [facility] Aspartate Aminotransferase 11 0 - 39 unit/L [facility] Alanine Aminotransferase 13 0 - 55 unit/L [facility] Alkaline Phosphatase 202(H) 40 - 130 unit/L [facility] Bilirubin, Total 0.5 0.2 - 1.3 mg/dL [facility] Est Glomerular Filtration Rate 64 >=60 mL/min/1. 73 m?? [facility] Comment: This patient's estimated GFR was [...] Lab Gilmer Gutiérrez MD CHEMISTRY ORDERA BLES [facility] [place] [address] documented in this encounter Visit Diagnoses Diagnosis Pleural effusion Unspecified pleural effusion Squamous cell carcinoma of left lung documented in this encounter Care Teams Steel Rule Die Maker Relationship Specialty Start Date End Date Tami Olivia [address] [place] [address] PCP - General Family Medicine 12/30/20 documented as of this encounter
--- OUTSIDE RECORDS SUMMARY | 2023-12-11 23:00 | XMS_ITS | Encounter Summary ---
Author Organization [facility] Address [facility] [place] [address] Care Team Providers Care Accreditation Manager Name Role Phone Tami Olivia Primary Care Provider Encounter Details Date Type Department Care Team (Latest Contact Info) Description 01/29/2022 12:00 PM EST Laboratory Appointment Lab [address] [place] [phone] Status post lobectomy of lung; Primary squamous [...] Vascular Unit Level 3 [place] [address] Tiera Goldsmith MD [facility] [place] [address] Scheduled Procedures Name Priority Associated Diagnoses Date/Ti [...] EST) Creatinine 1.11 0.80 - 1.50 mg/dL [facility] Est Glomerular Filtration Rate 71 >=60 mL/min/1. 73 m?? 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
--- OUTSIDE RECORDS SUMMARY | 2023-12-11 23:00 | XMS_ITS | Encounter Summary ---
Author Organization [facility] Address [facility] [place] [address] Care Team Providers Care Bar Helper Name Role Phone Tami Olivia Primary Care Provider [phone] Encounter Details Date Type Department Care Team (Late st Contact Info) Description 02/19/2022 Telephone [place] [address] Megan Reza RN Social History [...] Miscellaneous Notes * Telephone Encounter - Megan Reaz RN - 02/19/2022 7:31 AM EST Entered in error documented in this encounter Plan of Treatment Upcoming Encounters Date Type Department Care Team (Late st Contact Info) Description 12/12/2023 Hospital Encounter Heart and Vascular Unit Level 3 [place] [address] Tiera Goldsmith MD [facility] [place] [address] Scheduled Procedures Name Priority Associated Diagnoses Date/Ti me ELECTROPHYSIOLOGY PROCEDURE Persistent atrial fibrillation CARDIOVERSION-ELECTIVE (WRVU 2) persistent atrial fibrillation TRANSESOPHAGEAL ECHOCARDIOGR AM (WRVU 2.3) persistent atrial fibrillation documented as of this encounter Visit Diagnoses Not on filedocumented in this encounter Care Teams Bar Helper Relationship Specialty Start Date End Date Tami Olivia [address] [place] [address] PCP - General Family Medicine 12/30/20 documented as of this encounter
--- OUTSIDE RECORDS SUMMARY | 2023-12-11 23:01 | XMS_ITS | Encounter Summary ---
Author Organization [facility] Address [facility] [place] [address] Care Team Providers Care Sketch Liner Name Role Phone [email or web address] Primary Care Provider [phone] Reason for Referral * Diagnostic Test (Routine) - Closed Specialty Diagnoses / Procedures Referred By Bert gautam Referred To Contact Radiology Diagnoses 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 Procedures CT Chest w Contrast Gilmer Gutiérrez MD [facility] [place] [address] [facility] [place] [address] Referral ID Status Reason Start Date Expiration Date V isits Requested Visits Authorized [id number] Closed Specialty Service Requested 04/17/2021 10/15/2022 1 1 Reason for Visit * Diagnostic Test (Routine) - Closed Specialty Diagnoses / Procedures Referred By Bert gautam Referred To Contact Radiology Diagnoses 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 Procedures CT Chest w Contrast Gilmer Gutiérrez MD [facility] [place] [address] [facility] [place] [address] Referral ID Status Reason Start Date Expiration Date V isits Requested Visits Authorized [id number] Closed Specialty Service Requested 04/17/2021 10/15/2022 1 1 Encounter Details Date Type Department Care Team (Latest Contact Info) Description 10/30/2021 1:06 PM EDT - 10/30/2021 11:59 PM EDT Hospital [place] [phone] Gilmer Gutiérrez MD [facility] [address] [place] [address] Squamous cell carcinoma of left lung; Status [...] Vascular Unit Level 3 [place] [address] Tiera Goldsmith MD [facility] [place] [address] Scheduled Procedures Name Priority Associated Diagnoses Date/Ti [...] have questions please contact the health healthcare educator that requested your imaging first. ? Electronically signed by: Marcus Edwards MD, [facility] ([phone]), at 10/30/2021 4:47 PM Narrative 10/30/2021 4:47 [...] ribs. Resulting Agency Comment Unexpected Finding Gilmer M Washington MD IMG CT ORDERABLE S documented in [...] Intravenous, ONCE PRN, 1 dose, Starting on Sat10/30/21 at 1418, Until Sat10/30/21 at 1429, Per Protocol, Warning Vesicant/Irritant Medication , Radiology Contrast, Routine Given 10/30/2021 2:29 PM EDT 60 mLs documented in this encounter Care Teams Sketch Liner Relationship Specialty Start Date End Date Tami Olivia [address] [place] [address] PCP - General Family Medicine 12/30/20 documented as of this encounter
--- OUTSIDE RECORDS SUMMARY | 2023-12-11 23:01 | XMS_ITS | Encounter Summary ---
Author Organization [facility] Address [facility] [place] [address] Care Team Providers Care Gerentological Physiotherapist Name Role Phone Tami Olivia Primary Care Provider [phone] Reason for Visit * Auth/Cert Specialty Diagnoses / Procedures Referred By Bert gautam Referred To Contact Diagnoses Mass of upper lobe of left lung left upper lobe lung mass Procedures PRO THORACOSCOPY SURG LOBECTOMY PRO BRONCHOSCOPY, DIAGNOSTIC @THORACOSCOPY,SURGICAL,W\LOBECTOMY, TOTAL OR SEGMENTAL (WRVU 24.64) BRONCHOSCOPY, DIAGNOSTIC (WRVU 2.78) Referral ID Status Reason Start Date Expiration Date Visits Re quested Visits Authorized [id number] 1 1 Encounter Details Date Type Department Care Team (Latest Contact Info) Description 03/29/2021 10:54 AM EST - 04/01/2021 3:25 PM EST Hospital Encounter [place] [address] Gilmer Foster MD [facility] [place] [address] Mass of upper lobe of left lung; [...] Primary * Renu Tan PA - Physician Transit Planner * Say Mo MD - Resident Procedure: [...] Hospital Course: Rajan Marquez was admitted to [facility] on 03/29/2021 via the Same Day Program. [...] a nurse in the Thoracic Clinic at [phone]. After hours or on weekends or holidays please call: [phone] and ask to speak to the Thoracic [...] the Thoracic Clinic or the Thoracic Surgeon reservations sales agent after hours. Please take over the counter [...] Expires XR Chest PA & Lateral (Generic) [[id number] Custom] 04/15/2021 10/15/2021 Process Instructions: Scheduling Instructions: Questions: Where will study be performed?: [facility] Radiology Portable exam?: Reason for exam and clinical history: s/p LULobectomy Clinical information / bryan questions for radiologist: Stat read required?: Date of injury if applicable: Requested Time: Provider Contact Information: Primary Care Provider: Tami Olivia [phone] Discharge References/Attachments: Discharge References/Attachments None For questions regarding this document or issues relating to this hospitalization on the Thoracic Surgery Service, please contact Dr. Foster's office at . Signed: STEVE Black 04/01/2021 Thoracic Surgery [facility] CC: PCP: Tami Olivia Referring: Tami Olivia [address] [place] [address] documented in this encounter Discharge Instructions * [...] a nurse in the Thoracic Clinic at [phone]. After hours or on weekends or holidays please call: [phone] and ask to speak to the Thoracic [...] the Thoracic Clinic or the Thoracic Surgeon reservations sales agent after hours. Please take over the counter [...] Paredes RN - 04/01/2021 9:07 AM EST [facility] Short Stay Unit Discharge Note [...] Mustafa PA - 03/31/2021 8:39 AM EST [facility] Department of Thoracic Surgery Inpatient Progress Note Patient Name: Rajan Marquez Patient : 1950 Patient Patient Location: [facility] Attending Surgeon: GILMER FOSTER ID: Rajan [...] from 03/29/2021 in Short Stay Unit at [facility] Office Visit from 02/17/2021 in Otolaryngology at [facility] Weight 100.3 kilograms, or 221 pounds 1.6 [...] Result Value Ref Range Surgical Pathology Report [id number] Location: OR; OR11; A The signing pathologist has (i) examined the relevant preparation(s) for the specimen(s) and (ii) rendered or confirmed the diagnosis(es). . Frozen Section FROZEN SECTION DIAGNOSIS AFS - Left upper lobe wedge, excision (1) for frozen section Positive for non-small cell carcinoma. 03/29/21 13:48 Electronically signed by: Malia Lacy MD Verified: 03/29/2021 13:49 Pathologist Performed at: -[facility] Dept. of Pathology, [place], [place] This intraoperative consultation should be interpreted [...] STEVE Sethi 03/31/2021 Thoracic Surgery Service Pager [phone] * Debbie Pride RN - 03/30/2021 11:05 [...] outlinedin this evaluation. Time IN / OUT: 4291-6522 Total Minutes, Physical Therapy: 25 (mod complexity eval ) Michaela Butcher, PT Pager: [phone] Physical Therapy Inpatient Rehabilitation Department * Sandra [...] of functional outcome. Sandra Goncalves OTR/L Pager [phone] Occupational Therapy Rehabilitation Department * Yosef Butcher PA - 03/30/2021 9:34 AM EST [facility] Department of Thoracic Surgery Inpatient Progress Note Patient Name: Rajan Marquez Patient : 1950 Patient Patient Location: [address] Attending Surgeon: GILMER FOSTER ID: Rajan [...] from 03/29/2021 in Short Stay Unit at [facility] Office Visit from 02/17/2021 in Otolaryngology at [facility] Weight 100.3 kg (221 lb 1.6 oz) [...] Result Value Ref Range Surgical Pathology Report [id number] Location: OR; OR11; A The signing pathologist has (i) examined the relevant preparation(s) for the specimen(s) and (ii) rendered or confirmed the diagnosis(es). . Frozen Section FROZEN SECTION DIAGNOSIS AFS - Left upper lobe wedge, excision (1) for frozen section Positive for non-small cell carcinoma. 03/29/21 13:48 Electronically signed by: Malia Lacy MD Verified: 03/29/2021 13:49 Pathologist Performed at: -[facility] Dept. of Pathology, [place], [place] This intraoperative consultation should be interpreted [...] STEVE Lenz 03/30/2021 Thoracic Surgery Service Pager [phone] * Loreta Terrell APRN - 03/30/2021 9:19 AM EST [facility] Department of Thoracic Surgery Inpatient Post Op Check Note Patient Name: Rajan Marquez Patient : 1950 Patient Patient Location: [facility]- Attending Surgeon: GILMER FOSTER ID: Rajan Marquez [...] from 03/29/2021 in Short Stay Unit at [facility] Office Visit from 02/17/2021 in Otolaryngology at [facility] Weight 100.3 kilograms, or 221 pounds 1.6 [...] Result Value Ref Range Surgical Pathology Report [id number] Location: OR; OR11; A The signing pathologist has (i) examined the relevant preparation(s) for the specimen(s) and (ii) rendered or confirmed the diagnosis(es). . Frozen Section FROZEN SECTION DIAGNOSIS AFS - Left upper lobe wedge, excision (1) for frozen section Positive for non-small cell carcinoma. 03/29/21 13:48 Electronically signed by: Malia Lacy MD Verified: 03/29/2021 13:49 Pathologist Performed at: -[facility] Dept. of Pathology, [place], [place] This intraoperative consultation should be interpreted [...] Dispo: full code, floor status Loreta Terrell, TALENT ACQUISITION DIRECTOR 03/30/2021 Thoracic Surgery Service Pager [phone] * Vanessa Salcedo RN - 03/29/2021 10:04 PM EST 1999: Received patient from PACU, patient alert and oriented x4, calm and cooperative, respirationseven and easy, reports pain is okay but worsens with deep breaths and movement. Chest tube set to -20mmHg water seal wall suction with air leak 2129: Patient medicated per 2199: Dr. Rosario at bedside. 699: Report given to Debbie VASQUEZ. * Lacy Rosario MD - 03/29/2021 10:01 PM EST [facility] Department of Thoracic Surgery Inpatient Post Op Check Note Patient Name: Rajan Marquez Patient : 1950 Patient Patient Location: [address] Attending Surgeon: GILMER FOSTER ID: Rajan [...] from 03/29/2021 in Short Stay Unit at [facility] Office Visit from 02/17/2021 in Otolaryngology at [facility] Weight 100.3 kg (221 lb 1.6 oz) [...] Result Value Ref Range Surgical Pathology Report [id number] Location: OR; OR11; A The signing pathologist has (i) examined the relevant preparation(s) for the specimen(s) and (ii) rendered or confirmed the diagnosis(es). . Frozen Section FROZEN SECTION DIAGNOSIS AFS - Left upper lobe wedge, excision (1) for frozen section Positive for non-small cell carcinoma. 03/29/21 13:48 Electronically signed by: Malia Lacy MD Verified: 03/29/2021 13:49 Pathologist Performed at: -[facility] Dept. of Pathology, [place], [place] This intraoperative consultation should be interpreted [...] Rosario MD 03/29/2021 Thoracic Surgery Service Pager [phone] * Debbie Pride RN - 03/29/2021 5:39 [...] STEVE Noguera 03/29/2021 Thoracic Surgery Service Pager [phone] documented in this encounter Nursing Notes * [...] provide DC IMM R. (Jose Manuel) CHRISTINA Salians RN/CM - Cellphone: [phone] Pager: [phone] Covering Service RN/CM * Initial Assessments - [...] SO, would be surrogate decision maker per [place] surrogate decision making law. (Only good for 180 days) Any patient receiving care at [facility] must abide by [place] law. The hierarchy for surrogate decision making [...] (i) The agent with financial power of varnisher apprentice or a conservator appointed in accordance with [...] Current DME: none Home Address confirmed as: [address] [place] [address] Social & Family Supports: All names listed below confirmed with patient as current and correct Extended Emergency Contact Information Primary Emergency Contact: SHAY PARISH Address: [address] [place] [address] [address] [facility] Mobile Relation: Life Partner Secondary Emergency Contact: [...] removed before discharge Health/Prescription Coverage: Primary Insurance: [facility] [employer] MEDICARE Payor: [facility] MANAGED MEDICARE / Plan: [facility] MANAGED MEDICARE COMPLETE / Product Type: *No Producttype* / Secondary Insurance: N/A Prescription Coverage: Yes Preferred Pharmacy: No Pharmacies Listed Patient reports he uses [facility], [place], [place] Status: Patient is a : No Primary Care Provider: Tami Olivia [phone] Patient/Caregiver Goals of Treatment: 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 PHONE: [phone] FAX: [phone] Transportation: no concerns Transportation Anticipated: family or [...] Reyes RN CM(remote) Melania Salinas RN CM [phone] * Brief Op Note - Say Mo MD - 03/29/2021 4:35 PM EST Brief Operative Note Patient Name: Rajan Marquez : [id number] MR#: [id number] Case Date: 03/29/2021 Surgeon: Surgeon(s) and Role: * Gilmer Foster MD - Primary * Renu Tan PA - Physician Transit Planner * Say Mo MD - Resident Preoperative [...] SPECIMEN TO PATHOLOGY Freeze mass, not margin 72826 left upper lobe lung mass left upper lobe wedge excision YES, Please perform frozen section 03/29/2021 1:18 PM Number of tissue samples (in container) 1 Time specimen removed from patient: 1:18 PM PATHOLOGY ORDER UPDATE [id number] 03/29/2021 1:29 PM Additional information: Additional Info Enter requested changes: Fragment of tumor marked with stitch eD-H Order Id number [id number] SPECIMEN TO PATHOLOGY 39103 left upper lobe lung mass left upper lobectomy resection 03/29/2021 3:39 PM Number of tissue samples (in container) 1 Time specimen removed from patient: 3:36 PM SPECIMEN TO PATHOLOGY 01979 left upper lobe lung mass AP Window [...] Foster MD - 03/29/2021 1:01 PM EST [facility] Operative Note Patient Name: Rajan Marquez : [id number] MR#: [id number] Case Date: 03/29/2021 Surgeon: Surgeon(s) and Role: * Gilmer Foster MD - Primary * Renu Tan PA - Physician Transit Planner * Say Mo MD - Resident Preoperative [...] SPECIMEN TO PATHOLOGY Freeze mass, not margin 58684 left upper lobe lung mass left upper lobe wedge excision YES, Please perform frozen section 03/29/2021 1:18 PM Number of tissue samples (in container) 1 Time specimen removed from patient: 1:18 PM PATHOLOGY ORDER UPDATE [id number] 03/29/2021 1:29 PM Additional information: Additional Info Enter requested changes: Fragment of tumor marked with stitch eD-H Order Id number [id number] SPECIMEN TO PATHOLOGY 82130 left upper lobe lung mass left upper lobectomy resection 03/29/2021 3:39 PM Number of tissue samples (in container) 1 Time specimen removed from patient: 3:36 PM SPECIMEN TO PATHOLOGY 05843 left upper lobe lung mass AP Window lymph node excision 03/29/2021 3:55 PM Number of tissue samples (in container) 1 Time specimen removed from patient: 3:54 PM Drains: 28 Croatian chest tube, left Surgical Closure: Primary Closure [...] adequate. The aorticopulmonary window was explored and medical field representative lymph nodes were resected. After assessing each port site for hemostasis, a 28 Croatian chest tube was placed through the camera [...] Vascular Unit Level 3 Wing B at [facility] [place] [address] Tiera Goldsmith MD [facility] [place] [address] Scheduled Procedures Name Priority Associated Diagnoses Date/Ti [...] Agent &/ Steroid Intercostal Nerve Single Level (28084) 03/29/2021 12:08 PM EST Mass of upper lobe of left lung Thoracoscopy With Mediastinal And Regional Lymphadenectomy 03/29/2021 12:08 PM EST Mass of upper lobe of left lung Bronchoscopy, Diagnostic (95471) 03/29/2021 12:08 PM EST Mass of upper lobe of left lung Thoracoscopy Surg Lobectomy (39142) 03/29/2021 12:08 PM EST Mass of upper [...] have questions please contact the health director career services that requested your imaging first. ? Narrative [...] who have questions please contactthe health director career services that requested your imaging first. Electronically signed by: Savanna Lyles MD[facility]([phone]), at 04/17/2021 10:54 AM Gilmer Foster MD [...] have questions please contact the health director career services that requested your imaging first. ? Narrative [...] who have questions please contactthe health director career services that requested your imaging first. Gilmer Foster MD IMG DX ORDERABLE S * (ABNORMAL) Differential, Automated (04/01/2021 3:59 AM EST) Pathologist [facility] Neutrophil % 74.5 % [facility] Neutrophil Absolute 7.27(H) 1.70 - 6.10 x10(3)/ L [facility] Lymph % 14.3 % [facility] Lymphocytes Abs 1.4 0.9 - 3.2 x10(3)/ L [facility] Monocyte % 9.1 % [facility] Monocyte Abs 0.9 0.3 - 0.9 x10(3)/ L [facility] Eos % 1.4 % [facility] Eosinophils Abs 0.1 0.0 - 0.4 x10(3)/[facility] Basophil % 0.3 % [facility] Baso Absolute 0.0 0.0 - 0.1 x10(3)/[facility] Immature Gran % 0.40 % [facility] Comment: Immature granulocytes(IG's)percentage and absolute count will include metamyelocytes, myelocytes, and promyelocytes. Blood smears from CBCs yielding IG's will be scanned manually for concordance. If this scan disagrees with the automated IG or if promyelocytes are noted, a manual differential will be performed. Immature Gran Absolute 0.04 0.00 - 0.04 x10(3)/ L [facility] Blood 04/01/2021 3:59 AM EST 04/01/2021 4:11 AM EST Narrative Resulting Agency Comment Spec In Lab Lacy Rosario MD HEMATOLOGY ORDERABLE S [facility] [place] [address] * (ABNORMAL) Hemogram (04/01/2021 3:59 AM EST) [facility] White Blood Cell 9.8(H) 4.0 - 9.5 x10(3)/ L [facility] Red Blood Cell 4.21(L) 4.58 - 5.54 x10(6)/mc L [facility] Hemoglobin 12.9(L) 13.7 - 16.5 g/dL [facility] Hematocrit 38.6(L) 40.5 - 48.5 % [facility] Mean Cell Volume 91.7 82.9 - 93.1 fL [facility] Mean Cell Hemoglobin 30.6 27.5 - 32.1 pg [facility] Mean Cell Hemoglobin Concentration 33.4 32.0 - 35.7 g/dL [facility] Platelet 176 145 - 357 x10(3)/mc L [facility] RDW Standard Deviation 44.7 36.0 - 45.0 [facility] RDW coefficient of variation 13.2 11.4 - 13.8 % [facility] Mean Platelet Volume 10.1 7.6 - 12.9 fL [facility] NRBC% auto 0.0 % [facility] NRBC Absolute 0.000 0.000 - 0.000 x10(3)/mc L [facility] Blood 04/01/2021 3:59 AM EST 04/01/2021 4:11 AM EST Narrative Resulting Agency Comment Spec In Lab Lacy Rosario MD HEMATOLOGY ORDERABLE S Performing Organization Address City/[facility]/[place] [address] * Phosphorus (04/01/2021 3:59 AM EST) Phosphorus 3.2 2.5 - 4.5 mg/dL [facility] Blood 04/01/2021 3:59 AM EST 04/01/2021 4:11 AM EST Narrative Resulting Agency Comment Spec In Lab Gilmer Foster MD CHEMISTRY ORDERA BLES [facility] [place] [address] * Magnesium (04/01/2021 3:59 AM EST) Magnesium 0.85 0.69 - 1.07 mmol/L [facility] Blood 04/01/2021 3:59 AM EST 04/01/2021 4:11 AM EST Narrative Resulting Agency Comment Spec In Lab Gilmer Foster MD CHEMISTRY ORDERA BLES [facility] [place] [address] * (ABNORMAL) Basic Metabolic Panel (non-fasting) (04/01/2021 3:59 AM EST) Glucose 107 65 - 199 mg/dL [facility] Comment:Diabetes: >=200 mg/d L plus symptoms Blood Urea Nitrogen 22(H) 10 - 20 mg/dL [facility] Creatinine 1.27 0.80 - 1.50 mg/dL [facility] Sodium 137 135 - 145 mmol/L [facility] Potassium 4.3 3.5 - 5.0 mmol/L [facility] Comment: Please note: ??Patients with WBC >100,000 may have falsely elevated Potassium levels. ??For accurate Potassium quantification in these patients send serum separator tube (gold top) for subsequent determinations. ??Contact the Clinical Chemistry Laboratory if there are any questions. Chloride 104 98 - 107 mmol/L [facility] Carbon Dioxide 21(L) 22 - 31 mmol/L [facility] Anion Gap 12 5 - 15 mmol/L [facility] Calcium 8.8 8.5 - 10.5 mg/dL [facility] Est Glomerular Filtration Rate 56(L) >=60 mL/min/1. 73 m?? [facility] Comment: This patient? s estimated [...] Lab Gilmer Foster MD CHEMISTRY CARMEN GALINDO [facility] [place] [address] * XR Chest PA & Lateral (Generic) [...] have questions please contact the health director career services that requested your imaging first. ? Narrative [...] who have questions please contactthe health director career services that requested your imaging first. Loreta Casillas [...] have questions please contact the health director career services that requested your imaging first. ? Narrative 03/31/2021 11:31 AM EST EXAMINATION: XR [...] who have questions please contactthe health director career services that requested your imaging first. Electronically signed by: Savanah Suazo MD, [facility] ([phone]), at 03/31/2021 11:31 AM Gilmer Foster MD IMG DX ORDERABLE S * (ABNORMAL) Differential, Automated (03/31/2021 4:08 AM EST) Neutrophil % 71.6 % [facility] Neutrophil Absolute 7.59(H) 1.70 - 6.10 x10(3)/[facility] Lymph % 18.1 % [facility] Lymphocytes Abs 1.9 0.9 - 3.2 x10(3)/[facility] Monocyte % 8.7 % [facility] Monocyte Abs 0.9 0.3 - 0.9 x10(3)/[facility] Eos % 0.6 % [facility] Eosinophils Abs 0.1 0.0 - 0.4 x10(3)/[facility] Basophil % 0.5 % [facility] Baso Absolute 0.0 0.0 - 0.1 x10(3)/[facility] Immature Gran % 0.50 % [facility] Comment: Immature granulocytes(IG's)percentage and absolute count will include metamyelocytes, myelocytes, and promyelocytes. Blood smears from CBCs yielding IG's will be scanned manually for concordance. If this scan disagrees with the automated IG or if promyelocytes are noted, a manual differential will be performed. Immature Gran Absolute 0.05(H) 0.00 - 0.04 x10(3)/[facility] Blood 03/31/2021 4:08 AM EST 03/31/2021 4:16 AM EST Narrative Resulting Agency Comment Spec In Lab Lacy Rosario MD HEMATOLOGY ORDERABLE S [facility] [place] [address] * (ABNORMAL) Hemogram (03/31/2021 4:08 AM EST) White Blood Cell 10.6(H) 4.0 - 9.5 x10(3)/[facility] Red Blood Cell 3.99(L) 4.58 - 5.54 x10(6)/[facility] Hemoglobin 12.3(L) 13.7 - 16.5 g/dL [facility] Hematocrit 36.1(L) 40.5 - 48.5 % [facility] Mean Cell Volume 90.5 82.9 - 93.1 fL [facility] Mean Cell Hemoglobin 30.8 27.5 - 32.1 pg [facility] Mean Cell Hemoglobin Concentration 34.1 32.0 - 35.7 g/dL [facility] Platelet 171 145 - 357 x10(3)/mc L [facility] RDW Standard Deviation 43.4 36.0 - 45.0 [facility] RDW coefficient of variation 13.2 11.4 - 13.8 % [facility] Mean Platelet Volume 10.1 7.6 - 12.9 [facility] NRBC% auto 0.0 % [facility] NRBC Absolute 0.000 0.000 - 0.000 x10(3)/mc L [facility] Blood 03/31/2021 4:08 AM EST 03/31/2021 4:16 AM EST Narrative Resulting Agency Comment Spec In Lab Lacy Rosario MD HEMATOLOGY ORDERABLE S Performing Organization Address City/[facility]/ZIP Co de Phone Number [facility] [place] [address] * Phosphorus (03/31/2021 4:08 AM EST) Phosphorus 3.2 2.5 - 4.5 mg/dL [facility] Blood 03/31/2021 4:08 AM EST 03/31/2021 4:16 AM EST Narrative Resulting Agency Comment Spec In Lab Gilmer Foster MD CHEMISTRY ORDERA BLES Performing Organization Address City/[facility]/ZIP Co de Phone Number [facility] [place] [address] * Magnesium (03/31/2021 4:08 AM EST) Magnesium 0.86 0.69 - 1.07 mmol/L [facility] Blood 03/31/2021 4:08 AM EST 03/31/2021 4:16 AM EST Narrative Resulting Agency Comment Spec In Lab Gilmer Foster MD CHEMISTRY ORDERA BLES [facility] [place] [address] * (ABNORMAL) Basic Metabolic Panel (non-fasting) (03/31/2021 4:08 AM EST) Glucose 114 65 - 199 mg/dL [facility] Comment:Diabetes: >=200 mg/d L plus symptoms Blood Urea Nitrogen 17 10 - 20 mg/dL [facility] Creatinine 1.22 0.80 - 1.50 mg/dL [facility] Sodium 138 135 - 145 mmol/L [facility] Potassium 3.8 3.5 - 5.0 mmol/L [facility] Comment: Please note: ??Patients with WBC >100,000 may have falsely elevated Potassium levels. ??For accurate Potassium quantification in these patients send serum separator tube (gold top) for subsequent determinations. ??Contact the Clinical Chemistry Laboratory if there are any questions. Chloride 105 98 - 107 mmol/L [facility] LABORATORY Carbon Dioxide 22 22 - 31 mmol/L [facility] Anion Gap 11 5 - 15 mmol/L [facility] Calcium 8.5 8.5 - 10.5 mg/dL [facility] Est Glomerular Filtration Rate 59(L) >=60 mL/min/1. 73 m?? [facility] Comment: This patient? s estimated [...] Lab Gilmer Foster MD CHEMISTRY CARMEN GALINDO [facility] [place] [address] * (ABNORMAL) XR Chest PA & Lateral [...] have questions please contact the health director career services that requested your imaging first. ? Narrative [...] who have questions please contactthe health director career services that requested your imaging first. Gilmer Foster MD IMG DX ORDERABLE S * (ABNORMAL) Differential, Automated (03/30/2021 4:04 AM EST) Neutrophil % 86.1 % [facility] Neutrophil Absolute 13.63(H) 1.70 - 6.10 x10(3)/mc L [facility] Lymph % 7.9 % [facility] Lymphocytes Abs 1.2 0.9 - 3.2 x10(3)/mc L [facility] Monocyte % 5.6 % [facility] Monocyte Abs 0.9 0.3 - 0.9 x10(3)/[facility] LABOR[facility] Eos % 0.0 % [facility] Eosinophils Abs 0.0 0.0 - 0.4 x10(3)/[facility] LABOR[facility]ORY Basophil % 0.1 % [facility] Baso Absolute 0.0 0.0 - 0.1 x10(3)/[facility] LABORATORY Immature Gran % 0.30 % [facility] Comment: Immature granulocytes(IG's)percentage and absolute count will include metamyelocytes, myelocytes, and promyelocytes. Blood smears from CBCs yielding IG's will be scanned manually for concordance. If this scan disagrees with the automated IG or if promyelocytes are noted, a manual differential will be performed. Immature Gran Absolute 0.05(H) 0.00 - 0.04 x10(3)/[facility] LAB[facility] Blood 03/30/2021 4:04 AM EST 03/30/2021 4:14 AM EST Narrative Resulting Agency Comment Spec In Lab Lacy Rosario MD HEMATOLOGY ORDERABLE S Performing Organization Address City/State/[facility] Co de Phone Number [facility] [place] [address] * (ABNORMAL) Hemogram (03/30/2021 4:04 AM EST) White Blood Cell 15.8(H) 4.0 - 9.5 x10(3)/[facility] LABORATORY Red Blood Cell 4.20(L) 4.58 - 5.54 x10(6)/[facility] LAB[facility] Hemoglobin 13.1(L) 13.7 - 16.5 g/dL [facility] Hematocrit 37.5(L) 40.5 - 48.5 % [facility] Mean Cell Volume 89.3 82.9 - 93.1 fL [facility] Mean Cell Hemoglobin 31.2 27.5 - 32.1 pg [facility] Mean Cell Hemoglobin Concentration 34.9 32.0 - 35.7 g/dL [facility] Platelet 183 145 - 357 x10(3)/mc L [facility] RDW Standard Deviation 41.9 36.0 - 45.0 [facility] RDW coefficient of variation 12.9 11.4 - 13.8 % [facility] Mean Platelet Volume 10.3 7.6 - 12.9 [facility]ORY NRBC% auto 0.0 % [facility] NRBC Absolute 0.000 0.000 - 0.000 x10(3)/mc L [facility] Blood 03/30/2021 4:04 AM EST 03/30/2021 4:14 AM EST Narrative Resulting Agency Comment Spec In Lab Lacy Rosario MD HEMATOLOGY ORDERABLE S Performing Organization Address City/[facility]/ZIP Co de Phone Number [facility] [place] [address] * Phosphorus (03/30/2021 4:04 AM EST) Phosphorus 3.1 2.5 - 4.5 mg/dL [facility] Blood 03/30/2021 4:04 AM EST 03/30/2021 4:14 AM EST Narrative Resulting Agency Comment Spec In Lab Gilmer Foster MD CHEMISTRY ORDERA BLES Performing Organization Address City/[facility]/ZIP Co de Phone Number [facility] [place] [address] * (ABNORMAL) Magnesium (03/30/2021 4:04 AM EST) Magnesium 0.67(L) 0.69 - 1.07 mmol/L [facility] Blood 03/30/2021 4:04 AM EST 03/30/2021 4:14 AM EST Narrative Resulting Agency Comment Spec In Lab Gilmer Foster MD CHEMISTRY ORDERA DARRYLS [facility] [place] [address] * Basic Metabolic Panel (non-fasting) (03/30/2021 4:04 AM EST) Glucose 138 65 - 199 mg/dL [facility] Comment:Diabetes: >=200 mg/d L plus symptoms Blood Urea Nitrogen 20 10 - 20 mg/dL [facility] Creatinine 1.15 0.80 - 1.50 mg/dL [facility] Sodium 136 135 - 145 mmol/L [facility] Potassium 3.9 3.5 - 5.0 mmol/L [facility] Comment: Please note: ??Patients with WBC >100,000 may have falsely elevated Potassium levels. ??For accurate Potassium quantification in these patients send serum separator tube (gold top) for subsequent determinations. ??Contact the Clinical Chemistry Laboratory if there are any questions. Chloride 103 98 - 107 mmol/L [facility] Carbon Dioxide 22 22 - 31 mmol/L [facility] Anion Gap 11 5 - 15 mmol/L [facility] Calcium 8.9 8.5 - 10.5 mg/dL [facility] Est Glomerular Filtration Rate 64 >=60 mL/min/1. 73 m?? [facility] Comment: This patient? s estimated [...] Lab Gilmer Foster MD CHEMISTRY CARMEN GALINDO [facility] [place] [address] * XR Chest One View (03/29/2021 5:35 [...] have questions please contact the health director career services that requested your imaging first. ? Narrative 03/29/2021 5:37 PM EST EXAMINATION: XR [...] who have questions please contactthe health director career services that requested your imaging first. Gilmer Foster MD IMG DX ORDERABLE S * Specimen to Pathology (03/29/2021 3:55 PM EST) AP Specimen 03/29/2021 3:55 PM EST 03/29/2021 3:55 PM EST Narrative [facility] - 03/29/2021 3:55 PM EST Specimen requisition ordered. ??Separate Pathology report to follow Gilmer Foster MD PATHOLOGY/CYTOLO GY ORDERABLES [facility] [place] [address] * Specimen to Pathology (03/29/2021 3:39 PM EST) AP Specimen 03/29/2021 3:39 PM EST 03/29/2021 3:39 PM EST Narrative [facility] - 03/29/2021 3:39 PM EST Specimen requisition ordered. ??Separate Pathology report to follow Gilmer Foster MD PATHOLOGY/CYTOLO GY ORDERABLES [facility] [place] [address] * Solid Tumor NGS Panel (03/29/2021 1:18 PM EST) Tissue 03/29/2021 1:18 PM EST 04/10/2021 2:38 PM EST Narrative Resulting Agency Comment Spec In Lab Gilmer Foster MD PATHOLOGY/CYTOLO GY ORDERABLES Performing Organization Address [facility]/State/ZIP Co de Phone Number [facility] [address] * Surgical Pathology Report (03/29/2021 1:18 PM EST) Final Diagnosis [id number] ? Location: [facility]; [facility]; The signing pathologist has (i) examined [...] The assay was performed according to the education and outreach coordinator's instructions using Anti-PD-L1 (22C3, pharmDX) antibody. Electronically signed by: ?Eugene FLORES PhD, Alysia Verified: ??04/12/2021 8:54 ?? Pathologist Performed at: ??-[facility] Dept. of Pathology, [place], [place] ?Surgical Pathology DIAGNOSIS A) Left upper [...] Soriano Verified: ??04/09/2021 11:33 ??Pathologist Performed at: ??-[facility] Dept. of Pathology, [place], [place] SYNOPTIC Specimen ? Procedure: ??Lobectomy ? [...] These foci are ?favored to represent entrapped gakona mucin cells; however, the possibility ?of focal glandular carcinoma differentiation cannot be entirely excluded. Tumor Block(s): ??B7 Normal Block(s): ??C1 [facility] January 2021 Release DISCUSSION Tumor somatic mutation testing and PD-L1 IHC testing have been ordered and will be reported separately. ADDITIONAL STUDIES Whole slide scan: medical field representative slide(s) EVG stains were evaluated for [...] ?Negative B5 ? p40 ?Positive B5 ? [id number] ? Positive B6 ? [id number] ? Positive B8 ? p40 ?Positive B8 [...] is submitted for frozen section: FS 1-lesion. Bread Icer sections in 3 cassettes as follows: ?A1: ??FS1 frozen section remnant/lesion ?A2: ??Closest staple line (including possible residual lesion) ?A3: ??Bread Icer lung parenchyma adjacent to lesion B - [...] of friable pleural disruption is inked blue Bread Icer sections in 14 cassettes as follows: ?B1: ??Bronchial margin, en face ?B2: ??Vascular margins, en face ?B3: ??Parenchymal staple margin ?B4: ??Prior wedge staple line ?B5-B7: ??Mass in relation to disrupted pleura (inked blue) ?B8-B9: ??Mass with adjacent uninvolved lung parenchyma . SPECIMEN PROCESSING ?B10: ??Bread Icer uninvolved lung parenchyma ?B11: ??Single intact lobar [...] Swann Verified: ??03/29/2021 13:49 ??Pathologist Performed at: ??-[facility] Dept. of Pathology, [place], [place] This intraoperative consultation should be interpreted as a preliminary diagnosis pending review of the entire specimen and special studies, if any. A final Surgical Pathology report will follow this preliminary Frozen Section report(s). 04/12/2021 8:54 AM EST [facility] LYMPH NODE SPECIMEN / Unknown 03/29/2021 1:18 PM EST 03/29/2021 1:18 PM EST LUNG STRUCTURE / Unknown 03/29/2021 1:18 PM EST 03/29/2021 1:18 PM EST LYMPH NODE SPECIMEN / Unknown 03/29/2021 1:18 PM EST 03/29/2021 1:18 PM EST Gilmer Foster MD PATHOLOGY/CYTOLO GY ORDERABLES Performing Organization Address City/State/[facility] Co de Phone Number [facility] [place] [address] * Specimen to Pathology (03/29/2021 1:18 PM EST) AP Specimen 03/29/2021 1:18 PM EST 03/29/2021 1:18 PM EST Narrative [facility] - 03/29/2021 1:18 PM EST Specimen requisition ordered. ??Separate Pathology report to follow Gilmer Foster MD PATHOLOGY/CYTOLO GY ORDERABLES [facility] [place] [address] * POCT Glucose (03/29/2021 12:02 PM EST) Glucose, POC 89 65 - 199 mg/dL [facility] Comment: Supplemental ranges: <140 mg/dL before meals <180 mg/dL all other times of the day Blood 03/29/2021 12:0 2 PM EST 03/29/2021 12:02 PM EST Gilmer Foster MD POINT OF CARE TE ST ORDERABLES Performing Organization Address [facility] Co de Phone Number [facility] [place] [address] documented in this encounter Visit Diagnoses Diagnosis [...] at 1726, Until Sat03/29/21 at 1728, Debbie Pirde: cabinet override Given 03/29/2021 5:28 PM EST 300 mg AMIOdarone (Paceron) tablet 400 mg 400 mg, Oral, EVERY 8 HOURS, 9 doses, First dose on Sat03/30/21 at 0130, Last dose on Sat04/01/21 at 1730, Routine Given 04/01/2021 9:02 AM [...] subcutaneous injection 5,000 Units 5,000 Units, Subcutaneous, DIRECTOR OF OPTIMIZATION TO O.R., 1 dose, On Sat03/29/21 at [...] 5 mg, Oral, DAILY, First dose on [facility] 03/30/21 at 1015, Until Discontinued, Routine Given 04/01/2021 9:01 AM EST 5 mg Given 03/31/2021 9:08 AM EST 5 mg Given 03/30/2021 11:39 AM EST 5 mg magnesium sulfate 2 g in sterile water 50 mL infusion 2 g, Intravenous, ONCE, 1 dose, On [facility] 03/30/21 at 0800, Administer over 120 Minutes New Bag 03/30/2021 11:36 AM EST 2 g 25 mL/hr mometasone (Asmanex) aerosol 2 puff 2 puff (440 mcg), Inhalation, 2 TIMES DAILY, First dose on [facility] 03/30/21 at 1030, Until Discontinued, Routine, Does the patient have the inspiratory effort to support a dry powder inhaler? Yes Given 04/01/2021 8:59 AM EST 2 puffs Given 03/31/2021 8:20 PM EST 2 puffs Given 03/31/2021 9:07 AM EST 2 puffs nicotine (Nicoderm CQ) 21 mg/24 hr patch 21 mg 21 mg (1 patch), Transdermal, DAILY, First dose on [facility] 03/30/21 at 0900, Until Discontinued, Apply new [...] Patch Removal Transdermal, DAILY, First dose on [facility] 03/30/21 at 0900, Until Discontinued, Remove nicotine 21 mg/24 hr patch nicotine (NICODERM CQ) 21 mg/24 hr patch Patch Verification Transdermal, 2 TIMES DAILY, First dose on [facility] 03/30/21 at 1015, Until Discontinued, Verify nicotine 21 [...] Olamide Bucio RN)1753 (Given - Provider: Olamide Bucio, CHRISTINA) 0037 (Given - Provider: Leonora Kingsley, CHRISTINA)0902 [...] RN) 0633 (Given - Provider: Gabi Cotto RN)175 (Given - Provider: Olamide Bucio RN) 0543 (Given - Provider: Leonora Kingsley, CHRISTINA) buPROPion SR (Wellbutrin SR) tablet 150 mg 150 mg, Oral, DAILY, First dose on Stephanie 03/30/21 at 0900, Until Discontinued, DO NOT CRUSH OR OPEN, Routine 0914 (Given - Provider: Debbie Pride RN) 0907 (Given - Provider: Olamide Bucio RN) 0900 (Given - Provider: Malia Paredes RN) docusate sodium (Colace) capsule 100 mg 100 mg, Oral, 3 TIMES DAILY, First dose on Sat03/29/21 at 2130, Until Discontinued, Routine 0914 (Given - Provider: Debbie Pride RN)1440 (Given - Provider: Debbie Pride RN)2052 (Given - Provider: Gabi Cotto, CHRISTINA) 0908 (Given - Provider: Olamide Bucio RN)1500 (Not Given - Provider: Olamide Bucio RN - Reason: Patient/family refused)2020 (Given - Provider: Leonora Kingsley, CHRISTINA) 0900 (Given - Provider: Malia Paredes, CHRISTINA)1500 (Due) heparin (porcine) (5,000 units/1 mL) subcutaneous injection 5,000 Units 5,000 Units, Subcutaneous, EVERY 8 HOURS SCHEDULED, First dose on Sat03/29/21 at 2200, Until Discontinued, Routine 0618 (Given - Provider: Vanessa Salcedo RN)1350 (Given - Provider: Debbie Pride RN)2358 (Given - Provider: Gabi Cotto RN) 0907 (Given - Provider: Olamide Bucio RN)1434 [...] Inhalation, 2 TIMES DAILY, First dose on [facility] 03/30/21 at 1030, Until Discontinued, Routine, Does the patient have the inspiratory effort to support a dry powder inhaler? Yes 1140 (Given - Provider: Debbie Pride RN)2051 (Given - Provider: Gabi Cotto, CHRISTINA) 09 (Given - Provider: Olamide Bucio RN)2019 (Given - Provider: Leonora Kingsley, CHRISTINA) 0859 (Given - Provider: Malia Paredes RN) [...] (Patch Applied - Provider: Olamide Bucio RN) 09 (Patch Applied - Provider: Malia Paredes RN) nicotine (NICODERM CQ) 21 mg/24 hr patch Patch Removal(Linked Group 2) Transdermal, DAILY, First dose on Sat03/30/21 at 0900, Until Discontinued, Remove nicotine 21 mg/24 hr patch 09 (Patch Removed - Provider: Debbie Pride RN - Comment: removed earlier by pt per pt) 0911 (Patch Removed - Provider: Olamide Bucio RN) [...] and location) verified - Provider: Olamide Bucio RN)2099 (Patch (dose and location) verified - Provider: Leonora Kingsley RN) 0900 (Due) pantoprazole EC (Protonix) tablet 40 mg 40 mg, Oral, DAILY, First dose on Stephanie 03/30/21 at 0900, Until Discontinued, DO NOT CRUSH OR OPEN 0914 (Given - Provider: Debbie Pride RN) 0908 (Given - Provider: Olamide Bucio RN) 0900 (Given - Provider: Malia Paredes, CHRISTINA) senna (Senokot) tablet 17.2 mg 17.2 mg, Oral, EVERY EVENING, First dose on Sat03/30/21 at 1700, Until Discontinued, Routine 1711 (Given [...] RN)2051 (Given - Provider: Gabi Cotto, CHRISTINA) 09 (Given - Provider: Olamide Bucio RN)2019 (Given - Provider: Leonora Kingsley RN) 0903 (Given - Provider: Malia Paredes, CHRISTINA) tamsulosin [...] Salcedo, CHRISTINA)0100 (Rate/Dose Verify - Provider: Vanessa Salcedo RN)0200 [...] Cotto RN) 2208 (Given - Provider: Leonora Kingsley RN) 538 (Given - Provider: Leonora Kingsley RN) lidocaine [...] patch documented in this encounter Care Teams Gerentological Physiotherapist Relationship Specialty Start Date End Date Tami Olivia [address] [place] [address] PCP - General Family Medicine 12/30/20 documented as of this encounter
--- OUTSIDE RECORDS SUMMARY | 2023-12-11 23:01 | XMS_ITS | Encounter Summary ---
Author Organization [facility] Address [facility] [place] [address] Care Team Providers Care Area Relief Pilot Name Role Phone SudhakarJacksonTami Primary Care Provider Encounter Details Date Type Department Care Team (Latest Contact Info) Description 04/17/2021 10:34 AM EST - 04/17/2021 11:[address] [facility] Hospital Encounter XRay at [address] [place] [address] S/P lobectomy of lung Discharge Disposition: Home [...] Vascular Unit Level 3 [place] [address] Tiera Goldsmith MD [facility] [place] [address] Scheduled Procedures Name Priority Associated Diagnoses Date/Ti [...] status documented in this encounter Care Teams Area Relief Pilot Relationship Specialty Start Date End Date Tami Olivia [address] [place] [address] PCP - General Family Medicine 12/30/20 documented as of this encounter
--- OUTSIDE RECORDS SUMMARY | 2023-12-11 23:01 | XMS_ITS | Encounter Summary ---
Author Organization [facility] Address [facility] [place] [address] Care Team Providers Care Electrical Cad Designer Name Role Phone Tami Olivia Primary Care Provider [phone] Reason for Visit * Reason Onset Date Comments Other 04/11/2021 Encounter Details Date Type Department Care Team (Late st Contact Info) Description 04/11/2021 Telephone Thoracic Surgery at [facility] [place] [phone] Megan Reza RN Other Social History Tobacco [...] Vascular Unit Level 3 [place] [id number] Tiera Goldsmith MD [facility] [place] [address] Scheduled Procedures Name Priority Associated Diagnoses Date/Ti me ELECTROPHYSIOLOGY PROCEDURE Persistent atrial fibrillation CARDIOVERSION-ELECTIVE (WRVU 2) persistent atrial fibrillation TRANSESOPHAGEAL ECHOCARDIOGR AM (WRVU 2.3) persistent atrial fibrillation documented as of this encounter Visit Diagnoses Not on filedocumented in this encounter Care Teams Electrical Cad Designer Relationship Specialty Start Date End Date Tami Olivia [address] [place] [address] PCP - General Family Medicine 12/30/20 documented as of this encounter
--- OUTSIDE RECORDS SUMMARY | 2023-12-11 23:01 | XMS_ITS | Encounter Summary ---
Author Organization [facility] Address [facility] [place] [address] Care Team Providers Care Web Application Tester Name Role Phone Tami Olivia Primary Care Provider [phone] Reason for Visit * Reason Onset Date Comments Prior Authorization 04/14/2021 Molecular ca ncer testing - A covered benefit Encounter Details Date Type Department Care Team (Late st Contact Info) Description 04/14/2021 Telephone [place] [phone] Lesly Bond Prior Authorization (Molecular cancer testing [...] received an e-mail from [employer] in [employer] and [employer] ([id number]) requesting coverage review for CPT 09535 which is to be done on the patient's left lung cancer biopsy. Ordering provider is Gilmer Gutiérrez MD. Per a call to [facility] ( ), policy [id number] is an active HMO with a [place] PCP listed. [facility] is in-network. CPT 10381 is a covered benefit with no authorization needed. Ref: Dewey/[id number]. I will e-mail [employer] to let her know CPT 39400 is a covered benefit. documented in this encounter Plan of Treatment Upcoming Encounters Date Type Department Care Team (Late st Contact Info) Description 12/12/2023 Hospital Encounter Heart and Vascular Unit Level 3 [place] [address] Tiera Goldsmith MD [facility] [place] [address] Scheduled Procedures Name Priority Associated Diagnoses Date/Ti me ELECTROPHYSIOLOGY PROCEDURE Persistent atrial fibrillation CARDIOVERSION-ELECTIVE (WRVU 2) persistent atrial fibrillation TRANSESOPHAGEAL ECHOCARDIOGR AM (WRVU 2.3) persistent atrial fibrillation documented as of this encounter Visit Diagnoses Not on filedocumented in this encounter Care Teams Web Application Tester Relationship Specialty Start Date End Date Tami Olivia [address] [place] [address] PCP - General Family Medicine 12/30/20 documented as of this encounter
--- OUTSIDE RECORDS SUMMARY | 2023-12-11 23:01 | XMS_ITS | Encounter Summary ---
Author Organization [facility] Address [facility] [place] [address] Care Team Providers Care First Aid Teacher Name Role Phone Tami Olivia Primary Care Provider [phone] Reason for Visit * Auth/Cert Specialty Diagnoses / Procedures Referred By Bert gautam Referred To Contact Diagnoses Mass of upper lobe of left lung left upper lobe lung mass Procedures PRO THORACOSCOPY SURG LOBECTOMY PRO BRONCHOSCOPY, DIAGNOSTIC @THORACOSCOPY,SURGICAL,W\LOBECTOMY, TOTAL OR SEGMENTAL (WRVU 24.64) BRONCHOSCOPY, DIAGNOSTIC (WRVU 2.78) Referral ID Status Reason Start Date Expiration Date Visits Re quested Visits Authorized [id number] 1 1 Encounter Details Date Type Department Care Team (Late st Contact Info) Description 03/29/2021 12:00 PM EST - 03/29/2021 4:45 PM EST [place] [address] Gilmer Foster MD [facility] [place] [address] @THORACOSCOPY,SURGICAL ,W\LOBECTOMY,TOTAL OR SEGMENTAL (WRVU 24.64) Social [...] Primary * Renu Tan PA - Physician Assistant Manager Trainee * Say Mo MD - Resident Procedure: [...] Hospital Course: Rajan Marquez was admitted to [facility] on 03/29/2021 via the Same Day [...] a nurse in the Thoracic Clinic at [phone]. After hours or on weekends or holidays please call: [phone] and ask to speak to the Thoracic [...] the Thoracic Clinic or the Thoracic Surgeon contract engineer after hours. Please take over the [...] Expires XR Chest PA & Lateral (Generic) [[id number] Custom] 04/15/2021 10/15/2021 Process Instructions: Scheduling Instructions: Questions: Where will study be performed?: [facility] Radiology Portable exam?: Reason for exam and clinical history: s/p LULobectomy Clinical information / bryan questions for radiologist: Stat read required?: Date of injury if applicable: Requested Time: Provider Contact Information: Primary Care Provider: Tami Olivia [phone] Discharge References/Attachments: Discharge References/Attachments None For questions regarding this document or issues relating to this hospitalization on the Thoracic Surgery Service, please contact Dr. Foster's office at . Signed: STEVE Black 04/01/2021 Thoracic Surgery [facility] CC: PCP: Tami Olivia Referring: Tami Olivia [address] [place] [address] documented in this encounter Discharge Instructions * [...] a nurse in the Thoracic Clinic at [phone]. After hours or on weekends or holidays please call: [phone] and ask to speak to the Thoracic [...] the Thoracic Clinic or the Thoracic Surgeon contract engineer after hours. Please take over the [...] Paredes RN - 04/01/2021 9:07 AM EST [facility] Short Stay Unit Discharge Note [...] Mustafa PA - 03/31/2021 8:39 AM EST [facility] Department of Thoracic Surgery Inpatient Progress Note Patient Name: Rajan Marquez Patient : 1950 Patient Patient Location: [facility] Attending Surgeon: GILMER FOSTER ID: Rajan Marquez [...] from 03/29/2021 in Short Stay Unit at [facility] Office Visit from 02/17/2021 in Otolaryngology at [facility] [place] Weight 100.3 kilograms, or 221 pounds 1.6 [...] Result Value Ref Range Surgical Pathology Report [id number] Location: OR; OR11; A The signing pathologist has (i) examined the relevant preparation(s) for the specimen(s) and (ii) rendered or confirmed the diagnosis(es). . Frozen Section FROZEN SECTION DIAGNOSIS AFS - Left upper lobe wedge, excision (1) for frozen section Positive for non-small cell carcinoma. 03/29/21 13:48 Electronically signed by: Malia Lacy MD Verified: 03/29/2021 13:49 Pathologist Performed at: -[facility] [place] Dept. of Pathology, [place], [place] This intraoperative consultation should be interpreted [...] STEVE Sethi 03/31/2021 Thoracic Surgery Service Pager [phone] * Debbie Pride RN - 03/30/2021 11:05 [...] outlinedin this evaluation. Time IN / OUT: 8119-9248 Total Minutes, Physical Therapy: 25 (mod complexity eval ) Michaela Butcher, PT Pager: [phone] Physical Therapy Inpatient Rehabilitation Department * Sandra [...] of functional outcome. Sandra Goncalves OTR/L Pager [phone] Occupational Therapy Rehabilitation Department * Yosef Butcher PA - 03/30/2021 9:34 AM EST [facility] Department of Thoracic Surgery Inpatient Progress Note Patient Name: Rajan Marquez Patient : 1950 Patient Patient Location: [address] Attending Surgeon: GILMER FOSTER ID: Rajan [...] from 03/29/2021 in Short Stay Unit at [facility] Office Visit from 02/17/2021 in Otolaryngology at [facility] [place] Weight 100.3 kg (221 lb 1.6 oz) [...] Result Value Ref Range Surgical Pathology Report [id number] Location: OR; OR11; A The signing pathologist has (i) examined the relevant preparation(s) for the specimen(s) and (ii) rendered or confirmed the diagnosis(es). . Frozen Section FROZEN SECTION DIAGNOSIS AFS - Left upper lobe wedge, excision (1) for frozen section Positive for non-small cell carcinoma. 03/29/21 13:48 Electronically signed by: Malia Lacy MD Verified: 03/29/2021 13:49 Pathologist Performed at: -[facility] [place] Dept. of Pathology, [place], [place] This intraoperative consultation should be interpreted [...] STEVE Lenz 03/30/2021 Thoracic Surgery Service Pager [phone] * Loreta Terrell APRN - 03/30/2021 9:19 AM EST [facility] Department of Thoracic Surgery Inpatient Post Op Check Note Patient Name: Rajan Marquez Patient : 1950 Patient Patient Location: [facility] Attending Surgeon: GILMER FOSTER ID: Rajan Marquez [...] from 03/29/2021 in Short Stay Unit at [facility] Office Visit from 02/17/2021 in Otolaryngology at [facility] [place] Weight 100.3 kilograms, or 221 pounds 1.6 [...] Result Value Ref Range Surgical Pathology Report [id number] Location: OR; OR11; A The signing pathologist has (i) examined the relevant preparation(s) for the specimen(s) and (ii) rendered or confirmed the diagnosis(es). . Frozen Section FROZEN SECTION DIAGNOSIS AFS - Left upper lobe wedge, excision (1) for frozen section Positive for non-small cell carcinoma. 03/29/21 13:48 Electronically signed by: Malia Lacy MD Verified: 03/29/2021 13:49 Pathologist Performed at: -[facility] [place] Dept. of Pathology, [place], [place] This intraoperative consultation should be interpreted [...] Dispo: full code, floor status Loreta Terrell, INSOLE PRESSER 03/30/2021 Thoracic Surgery Service Pager [phone] * Vanessa Salcedo RN - 03/29/2021 10:04 [...] Rosario MD - 03/29/2021 10:01 PM EST [facility] Department of Thoracic Surgery Inpatient Post Op Check Note Patient Name: Rajan Marquez Patient : 1950 Patient Patient Location: [address] Attending Surgeon: GILMER FOSTER ID: Rajan [...] from 03/29/2021 in Short Stay Unit at [facility] Office Visit from 02/17/2021 in Otolaryngology at [facility] [place] Weight 100.3 kg (221 lb 1.6 oz) [...] Result Value Ref Range Surgical Pathology Report [id number] Location: OR; OR11; A The signing pathologist has (i) examined the relevant preparation(s) for the specimen(s) and (ii) rendered or confirmed the diagnosis(es). . Frozen Section FROZEN SECTION DIAGNOSIS AFS - Left upper lobe wedge, excision (1) for frozen section Positive for non-small cell carcinoma. 03/29/21 13:48 Electronically signed by: Malia Lacy MD Verified: 03/29/2021 13:49 Pathologist Performed at: -[facility] [place] [place] Dept. of Pathology, [place], [place] This intraoperative consultation should be interpreted [...] Rosario MD 03/29/2021 Thoracic Surgery Service Pager [phone] * Debbie Pride RN - 03/29/2021 5:39 [...] STEVE Noguera 03/29/2021 Thoracic Surgery Service Pager [phone] documented in this encounter Nursing Notes * Gabi Cotto RN - 03/31/2021 12:04 AM EST 2130-MD Rosario paged and made aware of PVR [phone]. Awaiting call back. 0000-MD oRsario rounding. Plan to get pt up by [...] (Jose Manuel) CHRISTINA Salinas RN/CM - Cellphone: [phone] Pager: [phone] Covering Service RN/CM * Initial Assessments - [...] SO, would be surrogate decision maker per [place] surrogate decision making law. (Only good for 180 days) Any patient receiving care at [facility] [place] [place] must abide by [place] law. The hierarchy [...] (i) The agent with financial power of attorney law clerk or a conservator appointed in accordance with [...] Current DME: none Home Address confirmed as: [address] [place] [address] Social & Family Supports: All names listed below confirmed with patient as current and correct Extended Emergency Contact Information Primary Emergency Contact: SHAY PARISH Address: [address] [place] [address] Mobile Relation: Life Partner Secondary Emergency Contact: [...] removed before discharge Health/Prescription Coverage: Primary Insurance: [facility] [employer] MEDICARE Payor: [facility] MANAGED MEDICARE / Plan: [facility] MANA[facility] COMPLETE / Product Type: *No Producttype* / Secondary Insurance: N/A Prescription Coverage: Yes Preferred Pharmacy: No Pharmacies Listed Patient reports he uses 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 PHONE: [phone] FAX: [phone] Transportation: no concerns Transportation Anticipated: family or [...] Reyes RN CM(remote) Melania Salinas RN CM [phone] * Brief Op Note - Say Mo MD - 03/29/2021 4:35 PM EST Brief Operative Note Patient Name: Rajan Marquez : [id number] MR#: [id number] Case Date: 03/29/2021 Surgeon: Surgeon(s) and Role: * Gilmer Foster MD - Primary * Renu Tan PA - Physician Assistant Manager Trainee * Say Mo MD - Resident Preoperative [...] SPECIMEN TO PATHOLOGY Freeze mass, not margin 27409 left upper lobe lung mass left upper lobe wedge excision YES, Please perform frozen section 03/29/2021 1:18 PM Number of tissue samples (in container) 1 Time specimen removed from patient: 1:18 PM PATHOLOGY ORDER UPDATE [id number] 03/29/2021 1:29 PM Additional information: Additional Info Enter requested changes: Fragment of tumor marked with stitch eD-H Order Id number [id number] SPECIMEN TO PATHOLOGY 29790 left upper lobe lung mass left upper lobectomy resection 03/29/2021 3:39 PM Number of tissue samples (in container) 1 Time specimen removed from patient: 3:36 PM SPECIMEN TO PATHOLOGY 57026 left upper lobe lung mass AP Window [...] Foster MD - 03/29/2021 1:01 PM EST [facility] [place] [place] Operative Note Patient Name: Rajan Marquez : [id number] MR#: [id number] Case Date: 03/29/2021 Surgeon: Surgeon(s) and Role: * Gilmer Foster MD - Primary * Renu Tan PA - Physician Assistant Manager Trainee * Say Mo MD - Resident Preoperative [...] SPECIMEN TO PATHOLOGY Freeze mass, not margin 26600 left upper lobe lung mass left upper lobe wedge excision YES, Please perform frozen section 03/29/2021 1:18 PM Number of tissue samples (in container) 1 Time specimen removed from patient: 1:18 PM PATHOLOGY ORDER UPDATE [id number] 03/29/2021 1:29 PM Additional information: Additional Info Enter requested changes: Fragment of tumor marked with stitch eD-H Order Id number [id number] SPECIMEN TO PATHOLOGY 50796 left upper lobe lung mass left upper lobectomy resection 03/29/2021 3:39 PM Number of tissue samples (in container) 1 Time specimen removed from patient: 3:36 PM SPECIMEN TO PATHOLOGY 45910 left upper lobe lung mass AP Window lymph node excision 03/29/2021 3:55 PM Number of tissue samples (in container) 1 Time specimen removed from patient: 3:54 PM Drains: 28 Swedish chest tube, left Surgical Closure: Primary Closure [...] adequate. The aorticopulmonary window was explored and customer counter representative lymph nodes were resected. After assessing each port site for hemostasis, a 28 Swedish chest tube was placed through the camera [...] Vascular Unit Level 3 Wing B at [facility] [place] [address] Tiera Goldsmith MD [facility] [place] [address] Scheduled Procedures Name Priority Associated Diagnoses Date/Ti [...] Agent &/ Steroid Intercostal Nerve Single Level (75037) 03/29/2021 12:08 PM EST Mass of upper lobe of left lung Thoracoscopy With Mediastinal And Regional Lymphadenectomy 03/29/2021 12:08 PM EST Mass of upper lobe of left lung Bronchoscopy, Diagnostic (22842) 03/29/2021 12:08 PM EST Mass of upper lobe of left lung Thoracoscopy Surg Lobectomy (49753) 03/29/2021 12:08 PM EST Mass of upper [...] have questions please contact the health career technical education instructor that requested your imaging first. ? Electronically signed by: Savanna Lyles MD, [facility] ([phone]), at 04/17/2021 10:54 AM Narrative 04/17/2021 10:54 AM EST EXAMINATION: XR [...] who have questions please contactthe health career technical education instructor that requested your imaging first. Electronically signed by: Savanna Lyles [facility]([phone]), at 04/17/2021 10:54 AM Gilmer Foster MD [...] have questions please contact the health career technical education instructor that requested your imaging first. ? Electronically signed by: Howie Braxton [facility] ([phone]), at 04/01/2021 2:47 PM Narrative 04/01/2021 2:47 PM EST EXAMINATION: XR [...] who have questions please contactthe health career technical education instructor that requested your imaging first. Electronically signed by: Howie Braxton [facility]([phone]), at 04/01/2021 2:47 PM Gilmer Foster MD IMG DX ORDERABLE S * (ABNORMAL) Differential, Automated (04/01/2021 3:59 AM EST) Pathologist [facility] Neutrophil % 74.5 % [facility] Neutrophil Absolute 7.27(H) 1.70 - 6.10 x10(3)/ L [facility] Lymph % 14.3 % [facility] Lymphocytes Abs 1.4 0.9 - 3.2 x10(3)/ L [facility] Monocyte % 9.1 % [facility] Monocyte Abs 0.9 0.3 - 0.9 x10(3)/ L [facility] Eos % 1.4 % [facility] Eosinophils Abs 0.1 0.0 - 0.4 x10(3)/[facility] Basophil % 0.3 % [facility] Baso Absolute 0.0 0.0 - 0.1 x10(3)/[facility] Immature Gran % 0.40 % [facility] Comment: Immature granulocytes(IG's)percentage and absolute count will include metamyelocytes, myelocytes, and promyelocytes. Blood smears from CBCs yielding IG's will be scanned manually for concordance. If this scan disagrees with the automated IG or if promyelocytes are noted, a manual differential will be performed. Immature Gran Absolute 0.04 0.00 - 0.04 x10(3)/ L [facility] Blood 04/01/2021 3:59 AM EST 04/01/2021 4:11 AM EST Narrative Resulting Agency Comment Spec In Lab Lacy Rosario MD HEMATOLOGY ORDERABLE S [facility] [place] [address] * (ABNORMAL) Hemogram (04/01/2021 3:59 AM EST) Pathologist [facility] White Blood Cell 9.8(H) 4.0 - 9.5 x10(3)/ L [facility] Red Blood Cell 4.21(L) 4.58 - 5.54 x10(6)/mc L [facility] Hemoglobin 12.9(L) 13.7 - 16.5 g/dL [facility] Hematocrit 38.6(L) 40.5 - 48.5 % [facility] Mean Cell Volume 91.7 82.9 - 93.1 fL [facility] Mean Cell Hemoglobin 30.6 27.5 - 32.1 pg [facility] Mean Cell Hemoglobin Concentration 33.4 32.0 - 35.7 g/dL [facility] Platelet 176 145 - 357 x10(3)/mc L [facility] RDW Standard Deviation 44.7 36.0 - 45.0 [facility] RDW coefficient of variation 13.2 11.4 - 13.8 % [facility] Mean Platelet Volume 10.1 7.6 - 12.9 [facility] NRBC% auto 0.0 % [facility] NRBC Absolute 0.000 0.000 - 0.000 x10(3)/mc L [facility] Blood 04/01/2021 3:59 AM EST 04/01/2021 4:11 AM EST Narrative Resulting Agency Comment Spec In Lab Lacy Rosario MD HEMATOLOGY ORDERABLE S Performing Organization Address City/[facility]/[place] [address] * Phosphorus (04/01/2021 3:59 AM EST) Phosphorus 3.2 2.5 - 4.5 mg/dL [facility] Blood 04/01/2021 3:59 AM EST 04/01/2021 4:11 AM EST Narrative Resulting Agency Comment Spec In Lab Gilmer Foster MD CHEMISTRY ORDERA BLES [facility] [place] [address] * Magnesium (04/01/2021 3:59 AM EST) Magnesium 0.85 0.69 - 1.07 mmol/L [facility] Blood 04/01/2021 3:59 AM EST 04/01/2021 4:11 AM EST Narrative Resulting Agency Comment Spec In Lab Gilmer Foster MD CHEMISTRY ORDERA BLES [facility] [place] [address] * (ABNORMAL) Basic Metabolic Panel (non-fasting) (04/01/2021 3:59 AM EST) Glucose 107 65 - 199 mg/dL [facility] Comment:Diabetes: >=200 mg/d L plus symptoms Blood Urea Nitrogen 22(H) 10 - 20 mg/dL [facility] Creatinine 1.27 0.80 - 1.50 mg/dL [facility] Sodium 137 135 - 145 mmol/L [facility] Potassium 4.3 3.5 - 5.0 mmol/L [facility] Comment: Please note: ??Patients with WBC >100,000 may have falsely elevated Potassium levels. ??For accurate Potassium quantification in these patients send serum separator tube (gold top) for subsequent determinations. ??Contact the Clinical Chemistry Laboratory if there are any questions. Chloride 104 98 - 107 mmol/L [facility] Carbon Dioxide 21(L) 22 - 31 mmol/L [facility] Anion Gap 12 5 - 15 mmol/L [facility] Calcium 8.8 8.5 - 10.5 mg/dL [facility] Est Glomerular Filtration Rate 56(L) >=60 mL/min/1. 73 m?? [facility] Comment: This patient? s estimated [...] Spec In Lab Gilmer Foster MD CHEMISTRY DAINA JOSIE [facility] [place] [address] * XR Chest PA & Lateral (Generic) [...] have questions please contact the health career technical education instructor that requested your imaging first. ? Electronically signed by: Jose Aaron MD, [facility] ([phone]), at 03/31/2021 4:30 PM Narrative 03/31/2021 4:30 PM EST EXAMINATION: XR [...] who have questions please contactthe health career technical education instructor that requested your imaging first. Electronically signed by: Jose Aaron MD, [facility]([phone]), at 03/31/2021 4:30 PM Loreta Terrell V, MORTEZA IMG DX ORDERABL [...] have questions please contact the health career technical education instructor that requested your imaging first. ? Electronically signed by: Savanah Suazo MD, [facility] ([phone]), at 03/31/2021 11:31 AM Narrative 03/31/2021 11:31 [...] who have questions please contactthe health career technical education instructor that requested your imaging first. Gilmer Foster MD IMG DX ORDERABLE S * (ABNORMAL) Differential, Automated (03/31/2021 4:08 AM EST) Neutrophil % 71.6 % [facility] Neutrophil Absolute 7.59(H) 1.70 - 6.10 x10(3)/[facility] Lymph % 18.1 % [facility] Lymphocytes Abs 1.9 0.9 - 3.2 x10(3)/[facility] Monocyte % 8.7 % [facility] Monocyte Abs 0.9 0.3 - 0.9 x10(3)/[facility] Eos % 0.6 % [facility] Eosinophils Abs 0.1 0.0 - 0.4 x10(3)/[facility] Basophil % 0.5 % [facility] Baso Absolute 0.0 0.0 - 0.1 x10(3)/[facility] Immature Gran % 0.50 % [facility] Comment: Immature granulocytes(IG's)percentage and absolute count will include metamyelocytes, myelocytes, and promyelocytes. Blood smears from CBCs yielding IG's will be scanned manually for concordance. If this scan disagrees with the automated IG or if promyelocytes are noted, a manual differential will be performed. Immature Gran Absolute 0.05(H) 0.00 - 0.04 x10(3)/[facility] Blood 03/31/2021 4:08 AM EST 03/31/2021 4:16 AM EST Narrative Resulting Agency Comment Spec In Lab Lacy Rosario MD HEMATOLOGY ORDERABLE S [facility] [place] [address] * (ABNORMAL) Hemogram (03/31/2021 4:08 AM EST) White Blood Cell 10.6(H) 4.0 - 9.5 x10(3)/[facility] Red Blood Cell 3.99(L) 4.58 - 5.54 x10(6)/[facility] Hemoglobin 12.3(L) 13.7 - 16.5 g/dL [facility] Hematocrit 36.1(L) 40.5 - 48.5 % [facility] Mean Cell Volume 90.5 82.9 - 93.1 fL [facility] Mean Cell Hemoglobin 30.8 27.5 - 32.1 pg [facility] Mean Cell Hemoglobin Concentration 34.1 32.0 - 35.7 g/dL [facility] Platelet 171 145 - 357 x10(3)/mc L [facility] RDW Standard Deviation 43.4 36.0 - 45.0 [facility] RDW coefficient of variation 13.2 11.4 - 13.8 % [facility] Mean Platelet Volume 10.1 7.6 - 12.9 [facility] NRBC% auto 0.0 % [facility] NRBC Absolute 0.000 0.000 - 0.000 x10(3)/mc L [facility] Blood 03/31/2021 4:08 AM EST 03/31/2021 4:16 AM EST Narrative Resulting Agency Comment Spec In Lab Lacy Rosario MD HEMATOLOGY ORDERABLE S Performing Organization Address City/[facility]/ZIP Co de Phone Number [facility] [place] [address] * Phosphorus (03/31/2021 4:08 AM EST) Phosphorus 3.2 2.5 - 4.5 mg/dL [facility] Blood 03/31/2021 4:08 AM EST 03/31/2021 4:16 AM EST Narrative Resulting Agency Comment Spec In Lab Gilmer Foster MD CHEMISTRY ORDERA BLES Performing Organization Address City/[facility]/ZIP Co de Phone Number [facility] [place] [address] * Magnesium (03/31/2021 4:08 AM EST) Magnesium 0.86 0.69 - 1.07 mmol/L [facility] Blood 03/31/2021 4:08 AM EST 03/31/2021 4:16 AM EST Narrative Resulting Agency Comment Spec In Lab Gilmer Foster MD CHEMISTRY ORDERA BLES [facility] [place] [address] * (ABNORMAL) Basic Metabolic Panel (non-fasting) (03/31/2021 4:08 AM EST) Glucose 114 65 - 199 mg/dL [facility] Comment:Diabetes: >=200 mg/d L plus symptoms Blood Urea Nitrogen 17 10 - 20 mg/dL [facility] Creatinine 1.22 0.80 - 1.50 mg/dL [facility] Sodium 138 135 - 145 mmol/L [facility] Potassium 3.8 3.5 - 5.0 mmol/L [facility] Comment: Please note: ??Patients with WBC >100,000 may have falsely elevated Potassium levels. ??For accurate Potassium quantification in these patients send serum separator tube (gold top) for subsequent determinations. ??Contact the Clinical Chemistry Laboratory if there are any questions. Chloride 105 98 - 107 mmol/L [facility] Carbon Dioxide 22 22 - 31 mmol/L [facility] Anion Gap 11 5 - 15 mmol/L [facility] Calcium 8.5 8.5 - 10.5 mg/dL [facility] Est Glomerular Filtration Rate 59(L) >=60 mL/min/1. 73 m?? [facility] Comment: This patient? s estimated [...] In Lab Gilmer Foster MD CHEMISTRY CARMEN GAILNDO [facility] [place] [address] * (ABNORMAL) XR Chest PA & Lateral [...] have questions please contact the health career technical education instructor that requested your imaging first. ? Narrative [...] who have questions please contactthe health career technical education instructor that requested your imaging first. Electronically signed by: Sara Aaron MD, [facility]([phone]), at 03/30/2021 1:18 PM Gilmer Foster MD IMG DX ORDERABLE S * (ABNORMAL) Differential, Automated (03/30/2021 4:04 AM EST) Neutrophil % 86.1 % [facility] Neutrophil Absolute 13.63(H) 1.70 - 6.10 x10(3)/mc L [facility] Lymph % 7.9 % [facility] Lymphocytes Abs 1.2 0.9 - 3.2 x10(3)/mc L [facility] Monocyte % 5.6 % [facility] Monocyte Abs 0.9 0.3 - 0.9 x10(3)/ L [facility] Eos % 0.0 % [facility] Eosinophils Abs 0.0 0.0 - 0.4 x10(3)/[facility] Basophil % 0.1 % [facility] Baso Absolute 0.0 0.0 - 0.1 x10(3)/[facility] Immature Gran % 0.30 % [facility] Comment: Immature granulocytes(IG's)percentage and absolute count will include metamyelocytes, myelocytes, and promyelocytes. Blood smears from CBCs yielding IG's will be scanned manually for concordance. If this scan disagrees with the automated IG or if promyelocytes are noted, a manual differential will be performed. Immature Gran Absolute 0.05(H) 0.00 - 0.04 x10(3)/[facility] Blood 03/30/2021 4:04 AM EST 03/30/2021 4:14 AM EST Narrative Resulting Agency Comment Spec In Lab Lacy Rosario MD HEMATOLOGY ORDERABLE S Performing Organization Address City/State/[facility] Co de Phone Number [facility] [place] [address] * (ABNORMAL) Hemogram (03/30/2021 4:04 AM EST) White Blood Cell 15.8(H) 4.0 - 9.5 x10(3)/[facility] Red Blood Cell 4.20(L) 4.58 - 5.54 x10(6)/[facility] Hemoglobin 13.1(L) 13.7 - 16.5 g/dL [facility] Hematocrit 37.5(L) 40.5 - 48.5 % [facility] Mean Cell Volume 89.3 82.9 - 93.1 fL [facility] Mean Cell Hemoglobin 31.2 27.5 - 32.1 pg [facility] Mean Cell Hemoglobin Concentration 34.9 32.0 - 35.7 g/dL [facility] Platelet 183 145 - 357 x10(3)/mc L [facility] RDW Standard Deviation 41.9 36.0 - 45.0 [facility] RDW coefficient of variation 12.9 11.4 - 13.8 % [facility] Mean Platelet Volume 10.3 7.6 - 12.9 fL [facility] NRBC% auto 0.0 % [facility] NRBC Absolute 0.000 0.000 - 0.000 x10(3)/mc L [facility] Blood 03/30/2021 4:04 AM EST 03/30/2021 4:14 AM EST Narrative Resulting Agency Comment Spec In Lab Lacy Rosario MD HEMATOLOGY ORDERABLE S Performing Organization Address City/[facility]/ZIP Co de Phone Number [facility] [place] [address] * Phosphorus (03/30/2021 4:04 AM EST) Phosphorus 3.1 2.5 - 4.5 mg/dL [facility] Blood 03/30/2021 4:04 AM EST 03/30/2021 4:14 AM EST Narrative Resulting Agency Comment Spec In Lab Gilmer Foster MD CHEMISTRY ORDERA BLES [facility] [place] [address] * (ABNORMAL) Magnesium (03/30/2021 4:04 AM EST) Magnesium 0.67(L) 0.69 - 1.07 mmol/L [facility] Blood 03/30/2021 4:04 AM EST 03/30/2021 4:14 AM EST Narrative Resulting Agency Comment Spec In Lab Gilmer Foster MD CHEMISTRY ORDERA BLES [facility] [place] [address] * Basic Metabolic Panel (non-fasting) (03/30/2021 4:04 AM EST) Glucose 138 65 - 199 mg/dL [facility] Comment:Diabetes: >=200 mg/d L plus symptoms Blood Urea Nitrogen 20 10 - 20 mg/dL [facility] Creatinine 1.15 0.80 - 1.50 mg/dL [facility] Sodium 136 135 - 145 mmol/L [facility] Potassium 3.9 3.5 - 5.0 mmol/L [facility] Comment: Please note: ??Patients with WBC >100,000 may have falsely elevated Potassium levels. ??For accurate Potassium quantification in these patients send serum separator tube (gold top) for subsequent determinations. ??Contact the Clinical Chemistry Laboratory if there are any questions. Chloride 103 98 - 107 mmol/L [facility] Carbon Dioxide 22 22 - 31 mmol/L [facility] Anion Gap 11 5 - 15 mmol/L [facility] Calcium 8.9 8.5 - 10.5 mg/dL [facility] Est Glomerular Filtration Rate 64 >=60 mL/min/1. 73 m?? [facility] Comment: This patient? s estimated [...] Lab Gilmer Foster MD CHEMISTRY CARMEN GALINDO [facility] One [facility] [address] * XR Chest One View (03/29/2021 5:35 [...] have questions please contact the health career technical education instructor that requested your imaging first. ? Narrative [...] who have questions please contactthe health career technical education instructor that requested your imaging first. Electronically signed by: Casa Sanchez MD, [facility]([phone]), at 03/29/2021 5:37 PM Gilmer Foster MD IMG DX ORDERABLE S * Specimen to Pathology (03/29/2021 3:55 PM EST) AP Specimen 03/29/2021 3:55 PM EST 03/29/2021 3:55 PM EST Narrative [facility] - 03/29/2021 3:55 PM EST Specimen requisition ordered. ??Separate Pathology report to follow Gilmer Foster MD PATHOLOGY/CYTOLO GY ORDERABLES [facility] [place] [address] * Specimen to Pathology (03/29/2021 3:39 PM EST) AP Specimen 03/29/2021 3:39 PM EST 03/29/2021 3:39 PM EST Narrative [facility] - 03/29/2021 3:39 PM EST Specimen requisition ordered. ??Separate Pathology report to follow Gilmer Foster MD PATHOLOGY/CYTOLO GY ORDERABLES [facility] [place] [address] * Solid Tumor NGS Panel (03/29/2021 1:18 PM EST) Tissue 03/29/2021 1:18 PM EST 04/10/2021 2:38 PM EST Narrative Resulting Agency Comment Spec In Lab Gilmer Foster MD PATHOLOGY/CYTOLO GY ORDERABLES [facility] [place] [address] * Surgical Pathology Report (03/29/2021 1:18 PM EST) Final Diagnosis [id number] ? Location: [facility]; [facility]; The signing pathologist has (i) examined the [...] The assay was performed according to the metal engineering process worker's instructions using Anti-PD-L1 (22C3, pharmDX) antibody. Electronically signed by: ?Eugene FLORES PhD, Alysia Verified: ??04/12/2021 8:54 ?? Pathologist Performed at: ??-[facility] [place] Dept. of Pathology, [place], [place] ?Surgical Pathology DIAGNOSIS A) Left upper [...] Soriano Verified: ??04/09/2021 11:33 ??Pathologist Performed at: ??-[facility] [place] Dept. of Pathology, [place], [place] SYNOPTIC Specimen ? Procedure: ??Lobectomy ? [...] These foci are ?favored to represent entrapped lac vieux mucin cells; however, the possibility ?of focal glandular carcinoma differentiation cannot be entirely excluded. Tumor Block(s): ??B7 Normal Block(s): ??C1 [facility] January 2021 Release DISCUSSION Tumor somatic mutation testing and PD-L1 IHC testing have been ordered and will be reported separately. ADDITIONAL STUDIES Whole slide scan: customer counter representative slide(s) EVG stains were evaluated for [...] ?Negative B5 ? p40 ?Positive B5 ? [id number] ? Positive B6 ? [id number] ? Positive B8 ? p40 ?Positive B8 [...] is submitted for frozen section: FS 1-lesion. Hemodialysis Lab Technician sections in 3 cassettes as follows: ?A1: ??FS1 frozen section remnant/lesion ?A2: ??Closest staple line (including possible residual lesion) ?A3: ??Hemodialysis Lab Technician lung parenchyma adjacent to lesion B - [...] of friable pleural disruption is inked blue Hemodialysis Lab Technician sections in 14 cassettes as follows: ?B1: ??Bronchial margin, en face ?B2: ??Vascular margins, en face ?B3: ??Parenchymal staple margin ?B4: ??Prior wedge staple line ?B5-B7: ??Mass in relation to disrupted pleura (inked blue) ?B8-B9: ??Mass with adjacent uninvolved lung parenchyma . SPECIMEN PROCESSING ?B10: ??Hemodialysis Lab Technician uninvolved lung parenchyma ?B11: ??Single intact lobar [...] Swann Verified: ??03/29/2021 13:49 ??Pathologist Performed at: ??-[facility] [place] Dept. of Pathology, [place], [place] This intraoperative consultation should be interpreted as a preliminary diagnosis pending review of the entire specimen and special studies, if any. A final Surgical Pathology report will follow this preliminary Frozen Section report(s). 04/12/2021 8:54 AM EST [facility] LYMPH NODE SPECIMEN / Unknown 03/29/2021 1:18 PM EST 03/29/2021 1:18 PM EST LUNG STRUCTURE / Unknown 03/29/2021 1:18 PM EST 03/29/2021 1:18 PM EST LYMPH NODE SPECIMEN / Unknown 03/29/2021 1:18 PM EST 03/29/2021 1:18 PM EST Gilmer Foster MD PATHOLOGY/CYTOLO GY ORDERABLES Performing Organization Address City/State/[facility] Co de Phone Number [facility] [place] [address] * Specimen to Pathology (03/29/2021 1:18 PM EST) AP Specimen 03/29/2021 1:18 PM EST 03/29/2021 1:18 PM EST Narrative [facility] - 03/29/2021 1:18 PM EST Specimen requisition ordered. ??Separate Pathology report to follow Gilmer Foster MD PATHOLOGY/CYTOLO GY ORDERABLES [facility] [place] [address] * POCT Glucose (03/29/2021 12:02 PM EST) Glucose, POC 89 65 - 199 mg/dL [facility] Comment: Supplemental ranges: <140 mg/dL before meals <180 mg/dL all other times of the day Blood 03/29/2021 12:0 2 PM EST 03/29/2021 12:02 PM EST Gilmer Foster MD POINT OF CARE TE ST ORDERABLES Performing Organization Address [place]/[facility]/ZIP Co de Phone Number [facility] [place] [address] documented in this encounter Visit Diagnoses Diagnosis [...] PRN, Starting on Sat03/29/21 at 2041, Until Sat04/01/21 at 1725, Pain, Routine Given 04/01/2021 5:39 [...] RN)1710 (Given - Provider: Debbie Pride, CHRISTINA) 0003 (Given - Provider: Gabi Cotto RN)0633 [...] RN)2205 (Given - Provider: Leonora Kingsley, CHRISTINA) 0330 (Not Given - Provider: Leonora Kingsley [...] Discontinued 0600 (Not Given - Provider: Vanessa aSlcedo RN - Reason: Patient/family refused)1711 (Given - [...] Debbie Pride RN)2358 (Given - Provider: Gabi Cotto, CHRISTINA) 0907 [...] Bucio RN) 09 (Given - Provider: Malia Paredes RN) magnesium sulfate 2 g in sterile water 50 mL infusion (COMPLETED) 2 g, Intravenous, ONCE, 1 dose, On Stephanie 03/30/21 at 0800, Administer over 120 Minutes 1136 [...] RN) 09 (Patch Removed - Provider: Malia Paredes RN) nicotine (NICODERM CQ) 21 mg/24 hr patch Patch Verification(Linked Group 2) Transdermal, 2 TIMES DAILY, First dose on Sat03/30/21 at 1015, Until Discontinued, Verify nicotine 21 mg/24 hr patch 1015 (Patch (dose and location) verified - Provider: Debbie Pride RN)2051 (Patch (dose and location) verified - Provider: Gabi Cotto, CHRISTINA) 899 (Patch (dose and location) verified - Provider: Olamide Bucio RN)2099 (Patch (dose and location) verified - Provider: Leonora Kingsley, RN) 09 (Due) pantoprazole EC (Protonix) tablet 40 mg [...] RN)2051 (Given - Provider: Gabi Cotto, CHRISTINA) 0916 (Given - Provider: Olamide Bucio, CHRISTINA)2019 (Given - Provider: Leonora Kingsley, CHRISTINA) 0903 (Given - Provider: Malia Paredes, CHRISTINA) tamsulosin (Flomax) capsule 0.4 mg 0.4 mg, Oral, DAILY, First dose on Sat03/30/21 at 0900, Until Discontinued, DO NOT CRUSH OR OPEN, Routine 0915 (Given - Provider: Debbie Pride RN) 0908 (Given - Provider: Olamide Bucio RN) 0901 (Given - Provider: Malia Paredes RN) Continuous Medication Order 03/30/2021 03/31/2021 04/01/2021 lactated ringers infusion (CANCELED) 50 mL/hr, Intravenous, CONTINUOUS, Starting on Sat03/29/21 at 1915, Until Stephanie 03/30/21 at 0751, Recovery (Recovery-Hospital Unit) 0000 (Rate/Dose [...] Kingsley, CHRISTINA) 0539 (Given - Provider: Leonora Kingsley, CHRISTINA) lidocaine (Xylocaine) 1% (10 mg/mL) injection 3 mg 3 mg (0.3 mL), Subcutaneous, ONCE PRN, 1 dose, Starting on Sat03/29/21 at 1845, Until 04/01/21 at 1725, for discomfort with PIV insertion, Recovery (Recovery-Hospital Unit), Routine ondansetron (pf) (Zofran) (2 mg/mL) injection 4 mg 4 mg, Intravenous, EVERY 8 HOURS PRN, Starting on Sat03/29/21 at 2041, Until Sat04/01/21 at 1725, Nausea oxyCODONE (Roxicodone) tablet 5 mg 5 mg, Oral, EVERY 4 HOURS PRN, Starting on Sat03/29/21 at 1703, Until Sat04/01/21 at 1725, Pain, For pain >4/10 not controlled by tylenol/toradol, Routine 911 (Given - Provider: Debbie Pride RN)2052 (Given [...] to med Transdermal, DAILY, First dose on Stephanie 03/30/21 at 0900, Until Discontinued, Remove nicotine 21 mg/24 hr patch documented in this encounter Care Teams First Aid Teacher Relationship Specialty Start Date End Date Tami Olivia [address] [place] [address] PCP - General Family Medicine 12/30/20 documented as of this encounter
--- OUTSIDE RECORDS SUMMARY | 2023-12-11 23:01 | XMS_ITS | Encounter Summary ---
Author Organization [facility] Address [facility] [place] [address] Care Team Providers Care Inside Sales Manager Name Role Phone Tami Olivia Primary Care Provider Encounter Details Date Type Department Care Team (Late st Contact Info) Description 12/11/2021 Ancillary Procedure Radiology Library at [facility] [place] [phone] Tami Olivia [address] [place] [address] Social History Tobacco Use Types [...] Vascular Unit Level 3 Wing [facility] [place] [phone] Tiera Goldsmith MD [facility] [place] [address] Scheduled Procedures Name Priority Associated Diagnoses Date/Ti [...] DX Chest (12/11/2021 12:00 AM EDT) Narrative BARBARA - 12/16/2021 12:56 AM EDT This exam is auto-finalizing. It's purpose is for storage only. Tami Olivia [facility] FILM LIBRARY OR DERABLES Performing Organization Address City/State/[facility] Co de Phone Number [place], [place] documented in this encounter Visit Diagnoses Not on filedocumented in this encounter Care Teams Inside Sales Manager Relationship Specialty Start Date End Date Tami Olivia [address] [place] [address] PCP - General Family Medicine 12/30/20 documented as of this encounter
--- OUTSIDE RECORDS SUMMARY | 2023-12-11 23:01 | XMS_ITS | Encounter Summary ---
Author Organization [facility] Address [facility] [place] [address] Care Team Providers Care Cementer Hand Name Role Phone Tami Olivia Primary Care Provider Encounter Details Date Type Department Care Team (Latest Contact Info) Description 10/30/2021 1:00 PM EDT Laboratory Appointment Lab [address] [place] [phone] Squamous cell carcinoma of left lung; Status [...] Vascular Unit Level 3 [place] [phone] Tiera Goldsmith MD [facility] [place] [address] Scheduled Procedures Name Priority Associated Diagnoses Date/Ti [...] EDT) Creatinine 1.01 0.80 - 1.50 mg/dL [facility] Est Glomerular Filtration Rate 80 >=60 mL/min/1. 73 m?? [facility] Comment: This patient's estimated [...] Lab Gilmer Gutiérrez MD CHEMISTRY ORDERA BLES [facility] [place] [address] documented in this encounter Visit Diagnoses Diagnosis 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 Other postprocedural status documented in this encounter Care Teams Cementer Hand Relationship Specialty Start Date End Date Tami Olivia [address] [place] [address] PCP - General Family Medicine 12/30/20 documented as of this encounter
--- OUTSIDE RECORDS SUMMARY | 2023-12-11 23:01 | XMS_ITS | Encounter Summary ---
Author Organization [facility] Address [facility] [place] [address] Care Team Providers Care Manager Perioperative Name Role Phone Tami Olivia Primary Care Provider [phone] Encounter Details Date Type Department Care Team (Latest Contact Info) Description 11/08/2021 10:25 AM EDT Laboratory Appointment Lab [address] [place] [phone] Squamous cell carcinoma of left lung Social [...] Vascular Unit Level 3 [place] [phone] Tiera Goldsmith MD [facility] [place] [address] Scheduled Procedures Name Priority Associated Diagnoses Date/Ti [...] White Blood Cell 8.8 4.0 - 9.5 x10(3)/ L [facility] Red Blood Cell 4.28(L) 4.58 - 5.54 x10(6)/mc L [facility] Hemoglobin 13.1(L) 13.7 - 16.5 g/dL [facility] Hematocrit 38.3(L) 40.5 - 48.5 % [facility] Mean Cell Volume 89.5 82.9 - 93.1 fL [facility] Mean Cell Hemoglobin 30.6 27.5 - 32.1 pg [facility] Mean Cell Hemoglobin Concentration 34.2 32.0 - 35.7 g/dL [facility] Platelet 287 145 - 357 x10(3)/[facility] RDW Standard Deviation 43.4 36.0 - 45.0 [facility] RDW coefficient of variation 13.2 11.4 - 13.8 % [facility] Mean Platelet Volume 9.3 7.6 - 12.9 [facility] NRBC% auto 0.0 % [facility] NRBC Absolute 0.000 0.000 - 0.000 x10(3)/[facility] Blood 11/08/2021 10:2 7 AM EDT 11/08/2021 10:31 AM EDT Narrative Resulting Agency Comment Spec In Lab Sloan Parker DO HEMATOLOGY ORDERABLE S [facility] [place] [address] documented in this encounter Visit Diagnoses Diagnosis Squamous cell carcinoma of left lung documented in this encounter Care Teams Manager Perioperative Relationship Specialty Start Date End Date Tami Olivia [address] [place] [address] PCP - General Family Medicine 12/30/20 documented as of this encounter
--- OUTSIDE RECORDS SUMMARY | 2023-12-11 23:01 | XMS_ITS | Encounter Summary ---
Author Organization [facility] [place] [address] Care Team Providers Care Mule Driver Name Role Phone Tami Olivia Primary Care Provider [phone] Reason for Referral * Diagnostic Test (Routine) - Closed Specialty Diagnoses / Procedures Referred By Bert gautam Referred To Contact Radiology Diagnoses 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 Pleural effusion Procedures IR Thoracentesis Left Gilmer Gutiérrez MD [facility] [address] [place] [address] Referral ID Status Reason Start Date Expiration Date V isits Requested Visits Authorized [id number] Closed Specialty Service Requested 10/30/2021 05/02/2023 1 1 Reason for Visit * Reason Comments Follow-up Encounter Details Date Type Department Care Team (Late st Contact Info) Description 10/30/2021 2:30 PM EDT Office Visit [place] [phone] Gilmer Gutiérrez MD [facility] [place] [address] Squamous cell carcinoma of left [...] Up Note MD Yosef Fischer. ASHLEY Butcher [place] [address] FAX: Reason for Visit: Follow up s/p [...] Kathleen Kemp MD 60 mL at 10/30/21 1427 Physical Exam: BP 157/75 (Patient Position: Sitting) [...] read pending per radiology. On our review, [id number] Left pleural effusion appreciated, no new nodules appreciated. Assessment: Rajan Marquez is a 70 y.o. 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 He is currently feeling well, however [id number] Left pleural effusion appreciated on CT today, [...] Vascular Unit Level 3 [place] [phone] Tiera Goldsmith MD [facility] [place] [address] Scheduled Procedures Name Priority Associated Diagnoses Date/Ti [...] effusion documented in this encounter Care Teams Mule Driver Relationship Specialty Start Date End Date Tami Olivia [address] [place] [address] PCP - General Family Medicine 12/30/20 documented as of this encounter
--- OUTSIDE RECORDS SUMMARY | 2023-12-11 23:01 | XMS_ITS | Encounter Summary ---
Author Organization [facility] Address [facility] [place] [address] Care Team Providers Care Hospitality Specialist Name Role Phone Tami Olivia Primary Care Provider [phone] Encounter Details Date Type Department Care Team (Late st Contact Info) Description 04/04/2021 Telephone Thoracic Surgery at [facility] [place] [phone] Megan Reza RN Social History Tobacco Use [...] 04/17/2021 CXR 04/17/2021 at 10:45 am in entry level receptionist area 3L 04/17/2021 at 11:15 am in entry level receptionist area 3K Rajan Marquez is aware of appointments and know to call with any questions or concerns. documented in this encounter Plan of Treatment Upcoming Encounters Date Type Department Care Team (Late st Contact Info) Description 12/12/2023 Hospital Encounter Heart and Vascular Unit Level 3 [place] [phone] Tiera Goldsmith MD [facility] [place] [address] Scheduled Procedures Name Priority Associated Diagnoses Date/Ti me ELECTROPHYSIOLOGY PROCEDURE Persistent atrial fibrillation CARDIOVERSION-ELECTIVE (WRVU 2) persistent atrial fibrillation TRANSESOPHAGEAL ECHOCARDIOGR AM (WRVU 2.3) persistent atrial fibrillation documented as of this encounter Visit Diagnoses Not on filedocumented in this encounter Care Teams Hospitality Specialist Relationship Specialty Start Date End Date Tami Olivia [address] [place] [address] PCP - General Family Medicine 12/30/20 documented as of this encounter
--- OUTSIDE RECORDS SUMMARY | 2023-12-11 23:01 | XMS_ITS | Encounter Summary ---
Author Organization [facility] Address [facility] [place] [address] Care Team Providers Care Optical Instrument Inspector Name Role Phone Tami Olivia Primary Care Provider Reason for Visit * Reason Onset Date Comments Other 11/03/2021 Encounter Details Date Type Department Care Team (Late st Contact Info) Description 11/03/2021 Telephone [place] [address] Megan Reza RN Other Social History Tobacco [...] for 11/08/2021 at 10:30 am arrival in medical secretary receptionist area 3. He is aware and in agreement with this plan. documented in this encounter Plan of Treatment Upcoming Encounters Date Type Department Care Team (Late st Contact Info) Description 12/12/2023 Hospital Encounter Heart and Vascular Unit Level 3 [place] [address] Tiera Goldsmith MD [facility] [place] [address] Scheduled Procedures Name Priority Associated Diagnoses Date/Ti me ELECTROPHYSIOLOGY PROCEDURE Persistent atrial fibrillation CARDIOVERSION-ELECTIVE (WRVU 2) persistent atrial fibrillation TRANSESOPHAGEAL ECHOCARDIOGR AM (WRVU 2.3) persistent atrial fibrillation documented as of this encounter Visit Diagnoses Not on filedocumented in this encounter Care Teams Optical Instrument Inspector Relationship Specialty Start Date End Date Tami Olivia [address] [place] [address] PCP - General Family Medicine 12/30/20 documented as of this encounter
--- OUTSIDE RECORDS SUMMARY | 2023-12-11 23:01 | XMS_ITS | Encounter Summary ---
Author Organization [facility] Address [facility] [place] [address] Care Team Providers Care Supervisor [employer] Name Role Phone Tami Olivia Primary Care Provider [phone] Reason for Referral * Diagnostic Test (Routine) - Closed Specialty Diagnoses / Procedures Referred By Bert gautam Referred To Contact Radiology Diagnoses 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 Procedures CT Chest w Contrast Gilmer Gutiérrez MD [facility] [place] [address] [facility] [place] [address] Referral ID Status Reason Start Date Expiration Date V isits Requested Visits Authorized [id number] Closed Specialty Service Requested 04/17/2021 10/15/2022 1 1 Encounter Details Date Type Department Care Team (Late st Contact Info) Description 04/17/2021 11:30 AM EST Office [place] [phone] Gilmer Gutiérrez MD [facility] [place] [address] Squamous cell carcinoma of left [...] Marquez is a 70-year-old man with a [id number] smoking history referred to me for a [...] Vascular Unit Level 3 [place] [address] Tiera Goldsmith MD [facility] [place] [address] Scheduled Procedures Name Priority Associated Diagnoses Date/Ti [...] questions please contact the health child care associate that requested your imaging first. ? Electronically signed by: Marcus Edwards MD, [facility] ([phone]), at 10/30/2021 4:47 PM Narrative 10/30/2021 4:47 [...] EDT) Creatinine 1.01 0.80 - 1.50 mg/dL [facility] Est Glomerular Filtration Rate 80 >=60 mL/min/1. 73 m?? [facility] Comment: This patient's estimated GFR [...] Lab Gilmer Gutiérrez MD CHEMISTRY ORDERA BLES [facility] [place] [address] documented in this encounter Visit Diagnoses Diagnosis 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 Other postprocedural status 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 Other postprocedural status documented in this encounter Care Teams Supervisor [employer] Relationship Specialty Start Date End Date Tami Olivia [address] [place] [address] PCP - General Family Medicine 12/30/20 documented as of this encounter
--- OUTSIDE RECORDS SUMMARY | 2023-12-11 23:01 | XMS_ITS | Encounter Summary ---
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 Pleural effusion Procedures IR Thoracentesis Left Gilmer Gutiérrez MD [facility] [place] [address] [place] [address] Referral ID Status Reason Start Date Expiration Date V isits Requested Visits Authorized [id number] Closed Specialty Service Requested 10/30/2021 05/02/2023 1 1 Reason for Visit * Diagnostic Test (Routine) - Closed Specialty Diagnoses / Procedures Referred By Bert gautam Referred To Contact Radiology Diagnoses 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 Pleural effusion Procedures IR Thoracentesis Left Gilmer Gutiérrez MD [facility] [place] [address] [place] [address] Referral ID Status Reason Start Date Expiration Date V isits Requested Visits Authorized [id number] Closed Specialty Service Requested 10/30/2021 05/02/2023 1 1 Encounter Details Date Type Department Care Team (Latest Contact Info) Description 11/08/2021 10:32 AM EDT - 11/08/2021 11:59 PM EDT Hospital Encounter Radiology at [facility] [place] [address] Gilmer Gutiérrez MD [facility] [place] [address] Squamous cell carcinoma of left lung; Status [...] Canela RN - 11/08/2021 12:33 PM EDT [facility] Vascular and Interventional Radiology Discharge Instructions Following [...] is during regular office hours, please call [phone]. If it is after regular office hours, or on weekends or holidays, please call [phone] and ask to speak to the Precision Dancer ribbon sweatband operator for Interventional Radiology. Revised 09/05/16 documented in [...] of : 1950 AGE: 70 y.o. Address: [address] [place] [address] Phone: [phone] (home) Mobile: Telephone Information: Referring Provider: Gilmer Gutiérrez REASON FOR VISIT: Order Questions Answers Where will study be performed? [facility] Radiology [120] What is the purpose of [...] Vascular Unit Level 3 [place] [address] Tiera Goldsmith MD [facility] [place] [address] Scheduled Procedures Name Priority Associated Diagnoses Date/Ti me ELECTROPHYSIOLOGY PROCEDURE Persistent atrial fibrillation CARDIOVERSION-ELECTIVE (WRVU 2) persistent atrial fibrillation TRANSESOPHAGEAL ECHOCARDIOGR AM (WRVU 2.3) persistent atrial fibrillation documented as of this encounter Procedures Procedure Name Priority Date/Time Associated Diagnosis Comments IR THORACENTESIS LEFT Routine 11/08/2021 12:32 PM EDT 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 Location: 3 The signing pathologist has (i) examined the relevant preparation(s) for the specimen(s) and (ii) rendered or confirmed the diagnosis(es). . ? Non-Program Advocate Final DIAGNOSIS See Discussion Electronically signed by: ?Asher FLORES, Rory Swann Verified: ??11/11/2021 11:10 ??Cytopathologis t Performed at: ??-[facility] [place], [place], [place] DISCUSSION Pleural fluid: left (thoracentesis) - [...] Cell Block 1. 11/11/2021 11:10 AM EDT [facility] LEFT PLEURAL FLUID / Unknown 11/08/2021 12:23 PM EDT 11/08/2021 12:23 PM EDT Gilmer Gutiérrez MD PATHOLOGY/CYTOLO GY ORDERABLES [facility] [place] [address] * Cell Count Body Fluid (11/08/2021 12:23 PM EDT) Body Fluid Source Pleural Fl M [facility] Color, Fld Yellow [facility] Appearance, Fld Clear [facility] WBC Count, Fld 455 <=499 /[facility] Comment: All body fluid results should always be interpreted in light of the total clinical presentation of the patient, including clinical history, data from additional tests and other appropriate information. Polymorphonuclear cells BF % 4 % [facility] Comment: Polymorphonuclear cell percent and absolute values may contain Neutrophils, Eosinophils, and Basophils. Body fluid smear will be scanned manually for concordance. Mononuclear cells BF % 451 % [facility] Comment: Mononuclear cell percent and absolute values may contain Lymphocytes and Monocytes. Body fluid smear will be scanned manually for concordance. Polymorphonuclear cells BF ABS 1 /[facility] Comment: Polymorphonuclear cell percent and absolute values may contain Neutrophils, Eosinophils, and Basophils. Body fluid smear will be scanned manually for concordance. Mononuclear cells BF ABS 99 /[facility] Comment: Mononuclear cell percent and absolute values may contain Lymphocytes and Monocytes. Body fluid smear will be scanned manually for concordance. Pleural Fluid Other / Unknown 11/08/2021 12:23 PM EDT 11/08/2021 1:33 PM EDT Narrative Resulting Agency Comment Spec In Lab Renu WILSON BODY FLUIDS AND STO OLS ORDERABLES Performing Organization Address City/[facility]/ZIP Co de Phone Number [facility] [place] [address] * Cytopathology Non-Gynecological (11/08/2021 11:09 AM EDT) AP Specimen 11/08/2021 11:0 9 AM EDT 11/08/2021 11:09 AM EDT Narrative [facility] - 11/08/2021 11:09 AM EDT Specimen requisition ordered. ??Separate Pathology report to follow Sloan Parker DO PATHOLOGY/CYTOLOGY O RDERABLES Performing Organization Address City/[facility]/ZIP Co de Phone Number [facility] [place] [address] documented in this encounter Visit Diagnoses Diagnosis [...] mg documented in this encounter Care Teams Racing Board Marker Relationship Specialty Start Date End Date Tami Olivia [address] [place] [address] PCP - General Family Medicine 12/30/20 documented as of this encounter
--- OUTSIDE RECORDS SUMMARY | 2023-12-11 23:01 | XMS_ITS | Encounter Summary ---
Author Organization [facility] Address [facility] [place] [address] Care Team Providers Care Design Coordinator Name Role Phone Tami Olivia Primary Care Provider Encounter Details Date Type Department Care Team (Late st Contact Info) Description 12/07/2021 Ancillary Procedure Radiology Library at [facility] [place] [phone] Tami Olivia [address] [place] [address] Social History Tobacco Use Types [...] Vascular Unit Level 3 Wing B at [facility] [place] [phone] Tiera Goldsmith MD [facility] [place] [address] Scheduled Procedures Name Priority Associated Diagnoses Date/Ti [...] DX Chest (12/07/2021 12:00 AM EDT) Narrative BARBARA - 12/16/2021 12:57 AM EDT This exam is auto-finalizing. It's purpose is for storage only. Tami Olivia [facility] FILM LIBRARY OR DERABLES Performing Organization Address City/State/[facility] Co de Phone Number [place], [place] documented in this encounter Visit Diagnoses Not on filedocumented in this encounter Care Teams Design Coordinator Relationship Specialty Start Date End Date Tami Olivia [address] [place] [address] PCP - General Family Medicine 12/30/20 documented as of this encounter
--- OUTSIDE RECORDS SUMMARY | 2023-12-11 23:01 | XMS_ITS | Encounter Summary ---
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 Procedures CT Chest w Contrast Gilmer Gutiérrez MD [facility] [place] [address] [facility] [place] [address] Referral ID Status Reason Start Date Expiration Date V isits Requested Visits Authorized [id number] Closed Specialty Service Requested 11/14/2021 05/15/2023 1 1 Encounter Details Date Type Department Care Team (Late st Contact Info) Description 11/14/2021 Orders Only [place] [address] Gilmer Gutiérrez MD [facility] [place] [address] Status post lobectomy of lung; Primary squamous [...] Vascular Unit Level 3 [place] [address] Tiera Goldsmith MD [facility] [place] [address] Scheduled Procedures Name Priority Associated Diagnoses Date/Ti [...] questions please contact the health child care group leader that requested your imaging first. ? Narrative 01/29/2022 3:05 PM EST EXAMINATION: CT [...] have questions please contactthe health child care group leader that requested your imaging first. Gilmer Gutiérrez MD IMG CT ORDERABLE S * Creatinine (01/29/2022 11:45 AM EST) Creatinine 1.11 0.80 - 1.50 mg/dL [facility] Est Glomerular Filtration Rate 71 >=60 mL/min/1. 73 m?? 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
--- OUTSIDE RECORDS SUMMARY | 2023-12-11 23:01 | XMS_ITS | Encounter Summary ---
Author Organization [facility] Address [facility] [place] [address] Care Team Providers Care Journal Clerk Name Role Phone Tami Olivia Primary Care Provider Encounter Details Date Type Department Care Team (Late st Contact Info) Description 11/08/2021 Orders [place] [phone] Renu Donald PA [facility] [address] Pleural effusion (Primary Dx) Social History Tobacco [...] Vascular Unit Level 3 [place] [address] Tiera Goldsmith MD [facility] [place] [address] Scheduled Procedures Name Priority Associated Diagnoses Date/Ti me ELECTROPHYSIOLOGY PROCEDURE Persistent atrial fibrillation CARDIOVERSION-ELECTIVE (WRVU 2) persistent atrial fibrillation TRANSESOPHAGEAL ECHOCARDIOGR AM (WRVU 2.3) persistent atrial fibrillation documented as of this encounter Visit Diagnoses Diagnosis Pleural effusion- Primary Unspecified pleural effusion documented in this encounter Care Teams Journal Clerk Relationship Specialty Start Date End Date Aldair-Tami Paz [address] [place] [address] PCP - General Family Medicine 12/30/20 documented as of this encounter
--- OUTSIDE RECORDS SUMMARY | 2023-12-11 23:01 | XMS_ITS | Encounter Summary ---
Author Organization [facility] Address [facility] [place] [address] Care Team Providers Care Pet Care Attendant Name Role Phone Tami Olivia Primary Care Provider Encounter Details Date Type Department Care Team (Late st Contact Info) Description 11/01/2021 Notes [place] [address] Ramon Manrique PA [facility] [place] [address] Social History Tobacco Use Types Packs/Day Years [...] 2.78) performed by Gilmer Gutiérrez MD at [facility] MAIN OR ? ? PRO INJECTION ANES AGENT &/ STEROID INTERCOSTAL NERVE SINGLE LEVEL Left 03/29/2021 NERVE BLOCK, INTERCOSTAL NERVE (WRVU 1.18) performed by Gilmer Gutiérrez MD at [facility] OR ??? PRO THORACOSCOPY SURG LOBECTOMY Left 03/29/2021 @THORACOSCOPY,SURGICAL,W\LOBECTOMY,TOTAL OR SEGMENTAL (WRVU 24.64) performed by Johana Gutiérrez MD at [facility] MAIN OR ??? PRO THORACOSCOPY WITH MEDIASTINAL AND REGIONAL LYMPHADENECTOMY 03/29/2021 @THORACOSCOPY, SURG; W/MEDIASTINAL& REGIONAL LYMPHADENECTOMY (WRVU 4.12) performed by Gilmer Gutiérrez MD at [facility] OR ??? PRO THORACOSCOPY WITH WEDGE RESECTION AND ANATOMIC LUNG RESECTN Left 03/29/2021 @THORACOSCOPY, SURG; W/DX WEDGE RESC W/ANATOMIC LUNG RESC (WRVU 3) performed by Johana Gutiérrez MD at [facility] OR Social history and habits: Social History [...] Vascular Unit Level 3 [place] [phone] Tiera Goldsmith MD [facility] [place] [address] Scheduled Procedures Name Priority Associated Diagnoses Date/Ti dc ELECTROPHYSIOLOGY PROCEDURE Persistent atrial fibrillation CARDIOVERSION-ELECTIVE (WRVU 2) persistent atrial fibrillation TRANSESOPHAGEAL ECHOCARDIOGR AM (WRVU 2.3) persistent atrial fibrillation documented as of this encounter Results * (ABNORMAL) Hemogram (11/08/2021 10:27 AM EDT) White Blood Cell 8.8 4.0 - 9.5 x10(3)/mc L [facility] Red Blood Cell 4.28(L) 4.58 - 5.54 x10(6)/mc L [facility] Hemoglobin 13.1(L) 13.7 - 16.5 g/dL [facility] Hematocrit 38.3(L) 40.5 - 48.5 % [facility] Mean Cell Volume 89.5 82.9 - 93.1 fL [facility] Mean Cell Hemoglobin 30.6 27.5 - 32.1 pg [facility] Mean Cell Hemoglobin Concentration 34.2 32.0 - 35.7 g/dL [facility] Platelet 287 145 - 357 x10(3)/mc L [facility] RDW Standard Deviation 43.4 36.0 - 45.0 fL [facility] RDW coefficient of variation 13.2 11.4 - 13.8 % [facility] Mean Platelet Volume 9.3 7.6 - 12.9 fL [facility] NRBC% auto 0.0 % [facility] NRBC Absolute 0.000 0.000 - 0.000 x10(3)/mc L [facility] Blood 11/08/2021 10:2 7 AM EDT 11/08/2021 10:31 AM EDT Narrative Resulting Agency Comment Spec In Lab Sloan Parker DO HEMATOLOGY ORDERABLE S [facility] [place] [address] documented in this encounter Visit Diagnoses Diagnosis Squamous cell carcinoma of left lung documented in this encounter Care Teams Pet Care Attendant Relationship Specialty Start Date End Date Tami Olivia [address] [place] [address] PCP - General Family Medicine 12/30/20 documented as of this encounter
--- OUTSIDE RECORDS SUMMARY | 2023-12-11 23:01 | XMS_ITS | Encounter Summary ---
Author Organization [facility] Address [facility] [place] [address] Care Team Providers Care Medical Records Tech Name Role Phone Tami Olivia Primary Care Provider Encounter Details Date Type Department Care Team (Late st Contact Info) Description 01/03/2022 Ancillary Procedure Radiology Library at [facility] [place] [phone] Gilmer Gutiérrez MD [facility] [place] [address] Social History Tobacco Use Types Packs/Day Years [...] 3 Wing B [place] [address] Tiera Goldsmith MD [facility] [place] [address] Scheduled Procedures Name Priority Associated Diagnoses Date/Ti [...] CT Chest (01/03/2022 12:00 AM EDT) Narrative THU JIMENEZ - 01/04/2022 7:48 PM EDT This exam is auto-finalizing. It's purpose is for storage only. Gilmer Gutiérrez MD IMG FILM LIBRARY ORDERABLES Performing Organization Address City/State/[facility] Co de Phone Number [place], [place] documented in this encounter Visit Diagnoses Not on filedocumented in this encounter Care Teams Medical Records Tech Relationship Specialty Start Date End Date Tami Olivia [address] [place] [address] PCP - General Family Medicine 12/30/20 documented as of this encounter
--- OUTSIDE RECORDS SUMMARY | 2023-12-11 23:02 | XMS_ITS | Encounter Summary ---
Author Organization [facility] Address [facility] [place] [address] Care Team Providers Care Entry Writer Name Role Phone Tami Olivia Primary Care Provider Reason for Visit * Reason Onset Date Comments Results 03/27/2021 Negative Covid f or Pre-op Encounter Details Date Type Department Care Team (Late st Contact Info) Description 03/27/2021 Telephone [place] [address] Gabriela Milligan RN Results (Negative Covid for [...] Vascular Unit Level 3 [place] [phone] Tiera Goldsmith MD [facility] [place] [address] Scheduled Procedures Name Priority Associated Diagnoses Date/Ti me ELECTROPHYSIOLOGY PROCEDURE Persistent atrial fibrillation CARDIOVERSION-ELECTIVE (WRVU 2) persistent atrial fibrillation TRANSESOPHAGEAL ECHOCARDIOGR AM (WRVU 2.3) persistent atrial fibrillation documented as of this encounter Visit Diagnoses Not on filedocumented in this encounter Care Teams Entry Writer Relationship Specialty Start Date End Date Tami Olivia [address] [place] [address] PCP - General Family Medicine 12/30/20 documented as of this encounter
--- OUTSIDE RECORDS SUMMARY | 2023-12-11 23:02 | XMS_ITS | Encounter Summary ---
Author Organization [facility] Address [address] [place] [address] Care Team Providers Care Patch Press Operator Name Role Phone Tami Olivia Primary Care Provider [phone] Encounter Details Date Type Department Care Team (Late st Contact Info) Description 09/27/2022 Lab Requisition [facility] Pathology & Laboratory Medicine - [facility] [address] [place] [address] Outr Resulting Lab, Provider Social History Tobacco [...] 54.6(L) 55.8 - 66.1 % 09/28/2022 13:53 [facility] Albumin g/dL 3.9 3.6 - 5.2 g/dL 09/28/2022 13:53 [facility] Alpha-1 % 5.1(H) 2.9 - 4.9 % 09/28/2022 13:53 [facility] Alpha-1 g/dL 0.40 0.15 - 0.40 g/dL 09/28/2022 13:53 [facility] Alpha-2 % 12.0(H) 7.1 - 11.8 % 09/28/2022 13:53 [facility] Alpha-2 g/dL 0.90 0.50 - 1.00 g/dL 09/28/2022 13:53 [facility] Beta % 13.3(H) 8.4 - 13.1 % 09/28/2022 13:53 [facility] Beta g/dL 1.00 0.60 - 1.20 g/dL 09/28/2022 13:53 [facility] Gamma % 15.0 11.1 - 18.8 % 09/28/2022 13:53 [facility] Gamma g/dL 1.10 0.60 - 1.60 g/dL 09/28/2022 13:53 EDT [facility] SPEP Comment No apparent monoclonal protein seen on serum electrophoresis 09/28/2022 13:53 EDT [facility] Comment:See scanned/suppleme ntary report. Total Protein 7.2 6.3 - 8.2 g/dL 09/28/2022 13:53 EDT [facility] Blood VENOUS BLOOD / Unknown 09/26/2022 12:30 EDT 09/27/2022 18:12 EDT Provider Outr Resulting Lab CHEMISTRY & BLOOD GAS ORDERABLES Performing Organization Address [facility] de Phone Number [facility] [address] [place] [address] * PROTEIN, TOTAL (09/26/2022 12:30 EDT) Blood VENOUS BLOOD / Unknown 09/26/2022 12:30 EDT 09/27/2022 18:12 EDT Provider Outr Resulting Lab CHEMISTRY & BLOOD GAS ORDERABLES Performing Organization Address [facility] Co de Phone Number [facility] [address] [place] [address] documented in this encounter Visit Diagnoses Not on filedocumented in this encounter Care Teams Patch Press Operator Relationship Specialty Start Date End Date Tami Olivia [address] [place] [address] PCP - General 12/04/19 documented as of this encounter
--- OUTSIDE RECORDS SUMMARY | 2023-12-11 23:02 | XMS_ITS | Encounter Summary ---
Author Organization [facility] Address [address] [place] [address] Care Team Providers Care Census Enumerator Name Role Phone Tami Olivia Primary Care Provider [phone] Encounter Details Date Type Department Care Team (Late st Contact Info) Description 01/22/2022 Lab Requisition [facility] Pathology & Laboratory Medicine - [facility] [address] [place] [address] Gab Mejia MD [address] [place] [address] [address] [place], [place] [id number] Encounter for other general examination Social History [...] explore management options, if applicable. 01/23/2022 16:55 [facility] Final Diagnosis A. COLON, DESCENDING, POLYP, BIOPSY: - Tubular adenoma. B. COLON, ASCENDING, POLYPS X2, BIOPSY: - Tubular adenomas. 01/23/2022 16:55 [facility] Attestation By the signature below, the attending physician certifies that they have 1) personally conducted a gross and/or microscopic examination of the described specimen(s), and/or personally interpreted the results of laboratory testing of the described specimen(s), and 2) personally rendered or confirmed the above diagnosis. 01/23/2022 16:55 [facility] at 1655 Clinical History Hx of colon polyps 01/23/2022 16:55 [facility] Gross Description A. [...] ISIDRA CHALOR 01/23/2022 5:43 01/23/2022 16:55 EST [facility] Performing Lab [facility] 01/23/2022 16:55 EST [facility] Scanned Images 01/23/2022 16:55 EST [facility] Tissue POLYP OF COLON / Unknown 01/22/2022 12:00 EST 01/22/2022 16:51 EST Tissue specimen (specimen) POLYP OF COLON / Unknown 01/22/2022 12:00 EST 01/22/2022 16:51 EST Gab Mejia MD PATHOLOGY ORDERA JOSIE [facility] [address] [place] [address] documented in this encounter Visit Diagnoses Diagnosis Encounter for other general examination documented in this encounter Care Teams Census Enumerator Relationship Specialty Start Date End Date aTmi Olivia [address] [place], [place] [address] PCP - General 12/04/19 documented as of this encounter
--- OUTSIDE RECORDS SUMMARY | 2023-12-11 23:02 | XMS_ITS | Encounter Summary ---
Author Organization [facility] Address [address] [place] [address] Care Team Providers Care Nuclear Physician Name Role Phone Tami Olivia Primary Care Provider [phone] Encounter Details Date Type Department Care Team (Late st Contact Info) Description 06/25/2022 Lab Requisition [facility] Pathology & Laboratory Medicine - [facility] [place] [address] [place] [address] Mandeep Licona, [address] [place] [address] Neoplasm of unspecified behavior of bone, soft [...] explore management options, if applicable. 06/26/2022 15:23 [facility] Final Diagnosis A. SKIN OF SCALP, LEFT ANTERIOR, SHAVE BIOPSIES: - Seborrheic keratosis, pigmented. 06/26/2022 15:23 [facility] Attestation By the signature below, the attending physician certifies that they have 1) personally conducted a gross and/or microscopic examination of the described specimen(s), and/or personally interpreted the results of laboratory testing of the described specimen(s), and 2) personally rendered or confirmed the above diagnosis. 06/26/2022 15:23 [facility] at 1523 Clinical History Clinical diagnosis code: D49.2 06/26/2022 15:23 [facility] Gross Description A. Received in [...] Kelin Aleisha 06/26/2022 7:48 06/26/2022 15:23 EDT [facility] Performing Lab [facility] 06/26/2022 15:23 EDT [facility] Scanned Images 06/26/2022 15:23 EDT [facility] Tissue TISSUE SPECIMEN FROM SKIN / Unknown 06/22/2022 13:20 EDT 06/25/2022 21:37 EDT Mandeep Licona DO PATHOLOGY ORDER [place] [facility] [address] [place] [address] documented in this encounter Visit Diagnoses Diagnosis Neoplasm of unspecified behavior of bone, soft tissue, and skin documented in this encounter Care Teams Nuclear Physician Relationship Specialty Start Date End Date Tami Olivia [address] [place] [address] PCP - General 12/04/19 documented as of this encounter
--- OUTSIDE RECORDS SUMMARY | 2023-12-11 23:02 | XMS_ITS | Encounter Summary ---
Author Organization [facility] Address [address] [place] [address] Care Team Providers Care Plating Tank Operator Apprentice Name Role Phone Tami Olivia Primary Care Provider [phone] Encounter Details Date Type Department Care Team (Late st Contact Info) Description 12/12/2021 Lab Requisition [facility] Pathology & Laboratory Medicine - [address] [id number] Josephine Sotomayor MD [address] [facility], [address] [place] [address] Encounter for other general examination [...] Name Priority Date/Time Associated Diagnosis Comments NON OPTICAL GOODS DRILLING MACHINE OPERATOR/FNA CYTOLOGY Today 12/11/2021 10:54 EDT Encounter for other general examination documented in this encounter Results * NON OPTICAL GOODS DRILLING MACHINE OPERATOR/FNA CYTOLOGY (12/11/2021 10:54 EDT) Note to Patient The following pathology results have been interpreted by your pathologist and may be available to you before your health provider has had the opportunity to review them. Please allow time for your provider to receive these results and explore management options, if applicable. 12/12/2021 10:41 [facility] Final Diagnosis A. PLEURAL FLUID, LATERALITY NOT SPECIFIED, CYTOLOGIC EVALUATION: - Negative for malignant epithelial cells. - Hypocellular specimen composed of predominantly small lymphocytes. See comment. 12/12/2021 10:41 [facility] Diagnosis Comment Please see the concurrent flow cytometry ([id number]) for characterization of the lymphocytes. 12/12/2021 10:41 [facility] Attestation By the signature below, the attending physician certifies that they have personally conducted a gross and/or microscopic examination of the described specimens and rendered or confirmed the above diagnosis. 12/12/2021 10:41 [facility] at 1041 Clinical History Pleural effusion 12/12/2021 10:41 [facility] Gross Description A. 50cc's of clear yellow fluid were received and processed by selective cellular enhancement technique. 12/12/2021 10:41 [facility] Performing Lab [facility] 10:41 [facility] Scanned Images 12/12/2021 10:41 EDT [facility] Fluid PLEURAL FLUID / Unknown 12/11/2021 10:54 EDT 12/12/2021 6:39 EDT Josephine Sotomayor MD PATHOLOGY ORDERABLES [facility] [address] [place] [address] documented in this encounter Visit Diagnoses Diagnosis Encounter for other general examination documented in this encounter Care Teams Plating Tank Operator Apprentice Relationship Specialty Start Date End Date Tami Olivia [address] [place] [address] PCP - General 12/04/19 documented as of this encounter
--- OUTSIDE RECORDS SUMMARY | 2023-12-11 23:02 | XMS_ITS | Encounter Summary ---
Author Organization [facility] Address [facility] [place] [address] Care Team Providers Care Operating Table Assembler Name Role Phone Tami Olivia Primary Care Provider [phone] Encounter Details Date Type Department Care Team (Latest Contact Info) Description 02/13/2021 2:30 PM EST Clinical Support Tobacco Treatment at [facility] [place] [address] Anali Benítez Cigarette nicotine dependence without complication [...] Vascular Unit Level 3 [place] [id number] Tiera Goldsmith MD [facility] [place] [address] Scheduled Procedures Name Priority Associated Diagnoses Date/Ti me ELECTROPHYSIOLOGY PROCEDURE Persistent atrial fibrillation CARDIOVERSION-ELECTIVE (WRVU 2) persistent atrial fibrillation TRANSESOPHAGEAL ECHOCARDIOGR AM (WRVU 2.3) persistent atrial fibrillation documented as of this encounter Visit Diagnoses Diagnosis Cigarette nicotine dependence without complication Tobacco use disorder documented in this encounter Care Teams Operating Table Assembler Relationship Specialty Start Date End Date Tami Olivia [address] [place] [address] PCP - General Family Medicine 12/30/20 documented as of this encounter
--- OUTSIDE RECORDS SUMMARY | 2023-12-11 23:02 | XMS_ITS | Encounter Summary ---
Author Organization [facility] Address [facility] [place] [address] Care Team Providers Care Roads Superintendent Name Role Phone Unavailable Primary Care Provider Unavailabl e Encounter Details Date Type Department Care Team (Late st Contact Info) Description 09/18/2019 Ancillary Procedure Radiology Library at [facility] [place] [place] [phone] Kasie Marcus MD [address] [place] [id number] Social History Tobacco Use Types Packs/Day Years [...] Vascular Unit Level 3 [place] [phone] Tiera Goldsmith MD [facility] [address] [place], [place] [phone] Scheduled Procedures Name Priority Associated Diagnoses Date/Ti [...] Kasie Marcus MD IMG FILM LIBRARY ORDERABLES Performing Organization Address City/State/[facility] Co de Phone Number THU JIMENEZ [place], [place] documented in this encounter Visit Diagnoses Not on filedocumented in this encounter
--- OUTSIDE RECORDS SUMMARY | 2023-12-11 23:02 | XMS_ITS | Encounter Summary ---
Author Organization [facility] Address [facility] [place] [address] Care Team Providers Care Manager Banking Name Role Phone Tami Olivia Primary Care Provider [phone] Reason for Visit * Diagnostic Test (Routine) - Closed Specialty Diagnoses / Procedures Referred By Bert gautam Referred To Contact Radiology Diagnoses Mass of upper lobe of left lung Pre-operative cardiovascular examination, high risk surgery Procedures NM PET CT Skull Base to Mid-thigh Gilmer Gutiérrez MD [facility] [place] [address] [facility] [place] [address] Referral ID Status Reason Start Date Expiration Date V isits Requested Visits Authorized [id number] Closed Specialty Service Requested 01/27/2021 03/13/2021 1 1 Encounter Details Date Type Department Care Team (Latest Contact Info) Description 02/10/2021 8:42 AM EST - 02/10/2021 11:59 PM [facility] Hospital Encounter [place] [phone] Gilmer Gutiérrez MD [facility] [place] [address] Discharge Disposition: Home Social History [...] Vascular Unit Level 3 [place] [address] Tiera Goldsmith MD [facility] [place] [address] Scheduled Procedures Name Priority Associated Diagnoses Date/Ti [...] Glucose, POC 90 65 - 199 mg/dL [facility] Comment: Supplemental ranges: <140 mg/dL before meals <180 mg/dL all other times of the day Blood 02/10/2021 9:13 AM EST 02/10/2021 9:13 AM EST Gilmer Gutiérrez MD POINT OF CARE TE ST ORDERABLES [facility] [address] documented in this encounter Visit Diagnoses Not on filedocumented in this encounter Care Teams Manager Banking Relationship Specialty Start Date End Date Tami Olivia [address] [place] [address] PCP - General Family Medicine 12/30/20 documented as of this encounter
--- OUTSIDE RECORDS SUMMARY | 2023-12-11 23:02 | XMS_ITS | Encounter Summary ---
Author Organization [facility] Address [facility] [place] [address] Care Team Providers Care Center Punch Operator Name Role Phone SudhakarJacksonTami Primary Care Provider [phone] Reason for Referral * Diagnostic Test (Routine) - Closed Specialty Diagnoses / Procedures Referred By Bert gautam Referred To Contact Radiology Diagnoses Mass of upper lobe of left lung Pre-operative cardiovascular examination, high risk surgery Procedures MRI Brain wwo Contrast (Generic) Gilmer Foster MD [facility] [place] [address] [place] [address] Referral ID Status Reason Start Date Expiration Date V isits Requested Visits Authorized [id number] Closed Specialty Service Requested 01/16/2021 07/16/2022 1 1 * Diagnostic Test (Routine) - Specialty Diagnoses / Procedures Referred By Bert gautam Referred To Contact Radiology Diagnoses Mass of upper lobe of left lung Pre-operative cardiovascular examination, high risk surgery Procedures NM Exercise Stress and Rest Myocardial Perfusion Gilmer Foster MD [facility] [place] [address] [facility] [place] [address] Referral ID Status Reason Start Date Expiration Date Visits Requested Visits Authorized [id number] Specialty Service Requested 02/09/2021 03/26/2021 4 4 * Diagnostic Test (Routine) - Closed Specialty Diagnoses / Procedures Referred By Contac t Referred To Contact Radiology Diagnoses Mass of upper lobe of left lung Pre-operative cardiovascular examination, high risk surgery Procedures NM Exercise Stress CT Component Gilmer Foster MD [facility] [place] [address] [place] [address] Referral ID Status Reason Start Date Expiration Date V isits Requested Visits Authorized [id number] Closed Specialty Service Requested 02/09/2021 03/26/2021 1 1 * Diagnostic Test (Routine) - Closed Specialty Diagnoses / Procedures Referred By Contac t Referred To Contact Radiology Diagnoses Mass of upper lobe of left lung Pre-operative cardiovascular examination, high risk surgery Procedures NM PET CT Skull Base to Mid-thigh Gilmer Foster MD [facility] [place] [address] [place] [address] Referral ID Status Reason Start Date Expiration Date V isits Requested Visits Authorized [id number] Closed Specialty Service Requested 01/27/2021 03/13/2021 1 1 Reason for Visit * Reason Comments Advice Only * Consultation (Urgent) - Closed Specialty Diagnoses / Procedures Referred By Contac t Referred To Contact Thoracic Surgery Diagnoses Other nonspecific abnormal finding of lung field Nicotine dependence, unspecified, uncomplicated Other nonspecific abnormal finding of lung field Tami Olivia [address] [place] [address] [facility] Thoracic Surg [address] [place] [phone] Referral ID Status Reason Start Date Expiration Date V isits Requested Visits Authorized [id number] Closed Consult, Test [facility] Treat [facility] PCP Updated and/or Approved 12/30/2020 12/30/2021 6 6 Encounter Details Date Type Department Care Team (Latest Contact Info) Description 01/16/2021 1:45 PM EST Office [place] [address] Gilmer Foster MD [facility] [place] [address] Mass of upper lobe of left lung; [...] check in for you PET scan at [facility]. Please refrain from eating or [...] will check in for your MRI at [facility]. Please remember to remove all [...] weigh more than 300 pounds please call [phone] weekdays 8 to 4pm and tell the appointment paralegal legal secretary. This information will help us choose the best way to schedule your test. *If you have diabetes and take insulin, tell the paralegal legal secretary scheduling your appointment. We need to work [...] 5:00pm. Please check in at the 3 gaming host desk on the day of your test. You will be having a stress test. A stress test shows how well your heart works with increased demands on it. You will check in for your stress test at [facility]. You must refrain from eatingor [...] of certain lung disorders. You will check pending sale to [facility] for your Pulmonary Function Testing. [...] Marquez is a 70-year-old man with a 097-kaob-baum smoking history who had a screening chest [...] Outpatient Consultation Note MD Matt Fischer PA [place] [address] Date of Consultation: 01/16/2021 This consultation has been requested by PCP: Tami Olivia Referring Physician: Tami Olivia [address] [place] [id number] Purpose for Consultation: Spiculated 2.8 cm ARACELI [...] positives as documented per HPI. Patient denies IN/stroke/TIA/DVT/PE/cancer, problems with kidneys/liver/bleeding/anesthesia, fevers, chills, sweats, weight [...] STEVE Arriaga 01/16/2021 Thoracic Surgery [facility] documented in this encounter Plan of Treatment Upcoming Encounters Date Type Department Care Team (Late st Contact Info) Description 12/12/2023 Hospital Encounter Heart and Vascular Unit Level 3 [place] [phone] Tiera Torres MD [facility] [place] [address] Scheduled Procedures Name Priority Associated Diagnoses Date/Ti [...] / FVC LLN 63 % COMPAS PFT [id number] Actual Pre-BD 3.63 L/s COMPAS PFT [id number] Pre-BD % of Predicted 159 % COMPAS PFT ANO87-16 Predicted 2.29 L/s COMPAS PFT UBL63-73 Pre-BD Z-Score 1.24 COMPAS PFT DLCO Hb [...] who have questions please contact the health childcare center administrator that requested your imaging first. ? Procedure [...] patients who have questions please contactthe health childcare center administrator that requested your imaging first. Gilmer Foster MD IMG NM ORDERABLE S [...] who have questions please contact the health childcare center administrator that requested your imaging first. ? Narrative 02/13/2021 3:29 PM EST EXAMINATION: NM [...] patients who have questions please contactthe health childcare center administrator that requested your imaging first. Gilmer Foster MD IMG NM ORDERABLE S [...] who have questions please contact the health childcare center administrator that requested your imaging first. ? Narrative 02/10/2021 3:25 PM EST EXAMINATION: NM PET CT STANDARD SKULL BASE TO MID-THIGH CLINICAL HISTORY: 70-year-old male with left upper lobe mass presenting for metastatic disease evaluation TECHNIQUE: Following IV injection of 76-hiabdx-8-deoxyglucose (FDG) a standard uptake of approximately 60 [...] who have questions please contact the health childcare center administrator that requested your imaging first. ? Narrative [...] patients who have questions please contactthe health childcare center administrator that requested your imaging first. Gilmer Foster MD IMG MRI ORDERABL ES * EKG 12 Lead (01/16/2021 2:36 PM EST) Ventricular rate 81 BPM MUSE SYSTEM Atrial Rate 81 BPM MUSE SYSTEM P-R Interval 168 ms MUSE SYSTEM QRS Duration 104 ms MUSE SYSTEM Q-T Interval 402 ms MUSE SYSTEM QTC Calculated (Bezet) 466 ms MUSE SYSTEM Calculated P [place] 79 degrees MUSE SYSTEM Calculated R [place] 99 degrees MUSE SYSTEM Calculated T [place] 15 degrees MUSE SYSTEM INTERPRETATION Sinus rhythm with Premature atrial complexes Rightward axis Borderline ECG No previous ECGs available Confirmed by Cindy Walker ([email or web address]) on 01/16/2021 6:40:13 PM MUSE SYSTEM 01/16/2021 [...] examination documented in this encounter Care Teams Center Punch Operator Relationship Specialty Start Date End Date Tami Olivia [address] [place] [address] PCP - General Family Medicine 12/30/20 documented as of this encounter
--- OUTSIDE RECORDS SUMMARY | 2023-12-11 23:02 | XMS_ITS | Encounter Summary ---
Author Organization [facility] Address [facility] [place] [address] Care Team Providers Care Assistant Media Planner Name Role Phone SudhakarJacksonTami Primary Care Provider [phone] Reason for Referral * Diagnostic Test (Routine) - Specialty Diagnoses / Procedures Referred By Bert t Referred To Contact Radiology Diagnoses Mass of upper lobe of left lung Pre-operative cardiovascular examination, high risk surgery Procedures NM Exercise Stress and Rest Myocardial Perfusion Gilmer Gutiérrez MD [facility] [address] [place] [address] [place] [address] Referral ID Status Reason Start Date Expiration Date Visits Requested Visits Authorized [id number] Specialty Service Requested 02/09/2021 03/26/2021 4 4 Reason for Visit * Diagnostic Test (Routine) - Specialty Diagnoses / Procedures Referred By Bert t Referred To Contact Radiology Diagnoses Mass of upper lobe of left lung Pre-operative cardiovascular examination, high risk surgery Procedures NM Exercise Stress and Rest Myocardial Perfusion Gilmer Gutiérrez MD [facility] [address] [place] [address] [place] [address] Referral ID Status Reason Start Date Expiration Date Visits Requested Visits Authorized [id number] Specialty Service Requested 02/09/2021 03/26/2021 4 4 Encounter Details Date Type Department Care Team (Latest Contact Info) Description 02/13/2021 10:01 AM EST Hospital Encounter Nuclear Medicine at [facility] [place] [id number] Gilmer Gutiérrez MD [facility] DR THORACIC SURG[place] [address] Mass of upper lobe of left lung; [...] Vascular Unit Level 3 [place] [address] Dario Goldsmith MD [facility] [place] [address] Scheduled Procedures Name Priority Associated Diagnoses Date/Ti sd ELECTROPHYSIOLOGY PROCEDURE Persistent atrial fibrillation CARDIOVERSION-ELECTIVE (WRVU [...] have questions please contact the health career services representative that requested your imaging first. ? Electronically signed by: DARIO GOLDSMITH MD, [facility] ([phone]), at 02/13/2021 3:29 PM Narrative 02/13/2021 3:29 [...] who have questions please contactthe health career services representative that requested your imaging first. Electronically signed by: DARIO GOLDSMITH MD, [facility]([phone]), at 02/13/2021 3:29 PM Gilmer Gutiérrez MD [...] mCi documented in this encounter Care Teams Assistant Media Planner Relationship Specialty Start Date End Date Tami Olivia [address] [place] [address] PCP - General Family Medicine 12/30/20 documented as of this encounter
--- OUTSIDE RECORDS SUMMARY | 2023-12-11 23:02 | XMS_ITS | Encounter Summary ---
Author Organization [facility] Address [facility] [place] [address] Care Team Providers Care Boil Off Worker Name Role Phone SudhakarJacksonTami Primary Care Provider [phone] Reason for Referral * Diagnostic Test (Routine) - Closed Specialty Diagnoses / Procedures Referred By Contac t Referred To Contact Radiology Diagnoses Mass of upper lobe of left lung Pre-operative cardiovascular examination, high risk surgery Procedures NM PET CT Skull Base to Mid-thigh Gilmer Gutiérrez MD [facility] [place] [address] [place] [address] Referral ID Status Reason Start Date Expiration Date V isits Requested Visits Authorized [id number] Closed Specialty Service Requested 01/27/2021 03/13/2021 1 1 Reason for Visit * Diagnostic Test (Routine) - Closed Specialty Diagnoses / Procedures Referred By Contac t Referred To Contact Radiology Diagnoses Mass of upper lobe of left lung Pre-operative cardiovascular examination, high risk surgery Procedures NM PET CT Skull Base to Mid-thigh Gilmer Gutiérrez MD [facility] [place] [address] [place] [address] Referral ID Status Reason Start Date Expiration Date V isits Requested Visits Authorized [id number] Closed Specialty Service Requested 01/27/2021 03/13/2021 1 1 Encounter Details Date Type Department Care Team (Latest Contact Info) Description 02/10/2021 8:41 AM EST Hospital Encounter [place] [address] Gilmer Gutiérrez MD [facility] [place] [address] Mass of upper lobe of left lung; [...] Unit Level 3 [place] [address] Tiera Goldsmith MD [facility] [place] [address] Scheduled Procedures Name Priority Associated Diagnoses Date/Ti [...] questions please contact the health resident care coordinator that requested your imaging first. ? Narrative 02/10/2021 3:25 PM EST EXAMINATION: NM PET CT STANDARD SKULL BASE TO MID-THIGH CLINICAL HISTORY: 70-year-old male with left upper lobe mass presenting for metastatic disease evaluation TECHNIQUE: Following IV injection of 45-odprop-2-deoxyglucose (FDG) a standard uptake of approximately 60 [...] Arm documented in this encounter Care Teams Boil Off Worker Relationship Specialty Start Date End Date Tami Olivia [address] [place] [address] PCP - General Family Medicine 12/30/20 documented as of this encounter
--- OUTSIDE RECORDS SUMMARY | 2023-12-11 23:02 | XMS_ITS | Referral Summary ---
Author Organization [facility] Address [address] [place] [address] Care Team Providers Care Library Circulation Department Chief Name Role Phone Tami Olivia Primary Care Provider [phone] Allergies Active Allergy Reactions Criticality Noted Date [...] Palpitations 11/05/2019 COPD (chronic obstructive pulmonary disease) ([facility]) 11/05/2019 ADHD 11/05/2019 Depression 11/05/2019 Tobacco [...] of Treatment Not on file Care Teams Library Circulation Department Chief Relationship Specialty Start Date End Date Tami Olivia [address] [place] [address] PCP - General 12/04/19
--- OUTSIDE RECORDS SUMMARY | 2023-12-11 23:02 | XMS_ITS | Encounter Summary ---
Author Organization [facility] Address [address] [place] [address] Care Team Providers Care Ship Officer Name Role Phone Tami Olivia Primary Care Provider [phone] Reason for Visit * Reason Comments Medication Management Doing well, no com plaints. Encounter Details Date Type Department Care Team (Late st Contact Info) Description 05/08/2023 13:15 EST Office Visit [facility] Rheumatology [address] [place], [place] [id number] Mena Ng MD [address] [facility] [address] [place] [address] RS3PE syndrome (Primary Dx); High risk medication [...] Mena Ng MD - 05/08/2023 1315 EST [facility] -Rheumatology follow up Chief Complaint Patient presents with Medication Management Doing well, no complaints. 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 HPI Doing [...] documented as of this encounter Care Teams Ship Officer Relationship Specialty Start Date End Date Tami Olivia [address] [place] [address] PCP - General 12/04/19 documented as of this encounter
--- OUTSIDE RECORDS SUMMARY | 2023-12-11 23:02 | XMS_ITS | Encounter Summary ---
Author Organization [facility] Address [address] [place] [address] Care Team Providers Care Spring Floor Service Worker Name Role Phone Tami Olivia Primary Care Provider [phone] Encounter Details Date Type Department Care Team (Late st Contact Info) Description 12/11/2021 Lab Requisition [facility] Pathology & Laboratory Medicine - [facility] [address] [place] [address] Outr Resulting Lab, Provider Social History Tobacco [...] ID No fungi isolated 01/08/2022 10:[address] [facility] Fungal Smear No Fungi Seen 01/08/2022 10:[address] [facility] Fluid PLEURAL / Unknown 12/11/2021 11:00 EDT 12/11/2021 17:43 EDT Provider Outr Resulting Lab MICROBIOLOGY - GENERAL ORDERABLES Performing Organization Address City/State/[facility] Co de Phone Number [facility] [address] [place] [address] documented in this encounter Visit Diagnoses Not on filedocumented in this encounter Care Teams Spring Floor Service Worker Relationship Specialty Start Date End Date Tami Olivia [address] [place] [address] PCP - General 12/04/19 documented as of this encounter
--- OUTSIDE RECORDS SUMMARY | 2023-12-11 23:02 | XMS_ITS | Encounter Summary ---
Author Organization [facility] Address [facility] [place] [address] Care Team Providers Care Silver Miner Name Role Phone Tami Olivia Primary Care Provider [phone] Reason for Visit * Consultation (Urgent) - Closed Specialty Diagnoses / Procedures Referred By Bert gautam Referred To Contact Otolaryngology Diagnoses Pharyngeal lesion PET avid left lateral pharyngeal wall uptake, please eval Patient is scheduled for Left Upper Lobe lung Lobectomy on 03/29/2021, Gilmer Gutiérrez MD [facility] [place] [address] [facility] Otolaryngology [address] [place] [phone] Referral ID Status Reason Start Date Expiration Date V isits Requested Visits Authorized [id number] Closed Consult, Test & Treat 02/13/2021 02/13/2022 1 1 Encounter Details Date Type Department Care Team (Late st Contact Info) Description 02/17/2021 2:00 PM EST Office [place] [address] Gunnar Cottrell III, MD [facility] [place] [address] Pharyngeal candidiasis; Mucositis Social History [...] Visit: 02/17/2021 Location of Visit: Otolaryngology Clinic, [facility] Patient: Rajan Marquez ([id number]; 1950) Primary Care Provider: Tami Olivia Referring [...] no known allergies. Social History: Lives in [place] [address], Tobacco:Yes Alcohol:Yes Other: Immunizations UTD. Family History: [...] Unit Level 3 [place] [phone] Tiera Goldsmith MD [facility] [place] [address] Scheduled Procedures Name Priority Associated Diagnoses Date/Ti [...] unspecified documented in this encounter Care Teams Silver Miner Relationship Specialty Start Date End Date Tami Olivia [address] [place] [address] PCP - General Family Medicine 12/30/20 documented as of this encounter
--- OUTSIDE RECORDS SUMMARY | 2023-12-11 23:02 | XMS_ITS | Encounter Summary ---
Author Organization [facility] Address [address] [place] [address] Care Team Providers Care Wrist Closer Name Role Phone Tami Olivia Primary Care Provider [phone] Reason for Visit * Reason Onset Date Comments Appointment Related 02/20/2022 Encounter Details Date Type Department Care Team (Late st Contact Info) Description 02/20/2022 Telephone [facility] Rheumatology [address] [place] [address] Mena Ng MD [address] [facility] [address] [place] [phone] Appointment Related Social History Tobacco Use Types [...] Dr. Ng, he has been admitted at [facility]. Appt has been rescheduled to April. documented in this encounter Plan of Treatment Not on file documented as of this encounter Visit Diagnoses Not on filedocumented in this encounter Care Teams Wrist Closer Relationship Specialty Start Date End Date Tami Olivia [address] [place] [address] PCP - General 12/04/19 documented as of this encounter
--- OUTSIDE RECORDS SUMMARY | 2023-12-11 23:02 | XMS_ITS | Encounter Summary ---
Author Organization [facility] Address [facility] [place] [address] Care Team Providers Care Short Haul Driver Name Role Phone Tami Olivia Primary Care Provider [phone] Reason for Referral * Diagnostic Test (Routine) - Closed Specialty Diagnoses / Procedures Referred By Contac t Referred To Contact Radiology Diagnoses Mass of upper lobe of left lung Pre-operative cardiovascular examination, high risk surgery Procedures NM Exercise Stress CT Component Gilmer Gutiérrez MD [facility] [place] [address] [place] [address] Referral ID Status Reason Start Date Expiration Date V isits Requested Visits Authorized [id number] Closed Specialty Service Requested 02/09/2021 03/26/2021 1 1 Reason for Visit * Diagnostic Test (Routine) - Closed Specialty Diagnoses / Procedures Referred By Contac t Referred To Contact Radiology Diagnoses Mass of upper lobe of left lung Pre-operative cardiovascular examination, high risk surgery Procedures NM Exercise Stress CT Component Gilmer Gutiérrez MD [facility] [place] [address] [place] [address] Referral ID Status Reason Start Date Expiration Date V isits Requested Visits Authorized [id number] Closed Specialty Service Requested 02/09/2021 03/26/2021 1 1 Encounter Details Date Type Department Care Team (Latest Contact Info) Description 02/13/2021 10:03 AM EST - 02/13/2021 12:55 PM EST Hospital Encounter [place] [address] Gilmer Gutiérrez MD [facility] [place] [address] Mass of upper lobe of left lung; [...] Vascular Unit Level 3 [place] [address] Tiera Goldsmith MD [facility] [place] [address] Scheduled Procedures Name Priority Associated Diagnoses Date/Ti [...] auditor that requested your imaging first. ? Procedure [...] compliance auditor that requested your imaging first. Gilmer Gutiérrez MD IMG NM ORDERABLE S documented in this encounter Visit Diagnoses Diagnosis Mass of upper lobe of left lung Pre-operative cardiovascular examination, high risk surgery Pre-operative cardiovascular examination documented in this encounter Care Teams Short Haul Driver Relationship Specialty Start Date End Date Tami Olivia [address] [place] [address] PCP - General Family Medicine 12/30/20 documented as of this encounter
--- OUTSIDE RECORDS SUMMARY | 2023-12-11 23:02 | XMS_ITS | Encounter Summary ---
Author Organization [facility] Address [facility] [place] [address] Care Team Providers Care Color Depositing Machine Tender Name Role Phone Unavailable Primary Care Provider Unavailabl e Encounter Details Date Type Department Care Team (Late st Contact Info) Description 12/23/2020 Ancillary Procedure Radiology Library at [facility] [place] [address] Kasie Marcus MD [address] [place] [phone] Social History Tobacco Use Types Packs/Day Years [...] Vascular Unit Level 3 [place] [address] Tiera Goldsmith MD [facility] [address] [place], [place] [phone] Scheduled Procedures Name Priority Associated Diagnoses Date/Ti [...] Chest (12/23/2020 12:00 AM EDT) Narrative [facility] - 12/30/2020 10:45 AM EDT This exam is auto-finalizing. It's purpose is for storage only. Kasie Marcus MD IMG FILM LIBRARY ORDERABLES Performing Organization Address City/State/[facility] Co de Phone Number [place], [place] documented in this encounter Visit Diagnoses Not on filedocumented in this encounter
--- OUTSIDE RECORDS SUMMARY | 2023-12-11 23:02 | XMS_ITS | Encounter Summary ---
Author Organization [facility] Address [facility] [place] [address] Care Team Providers Care Golf Range Attendant Name Role Phone Tami Olivia Primary Care Provider [phone] Encounter Details Date Type Department Care Team (Late st Contact Info) Description 03/09/2021 Telephone [facility] at [facility] [place] [phone] Tamika [place] Social History Tobacco Use Types [...] ASK: TRAVEL ???Have you travelled outside of [place] ([place], [place], [place], [place], [place], [place]) in the past 14 days??? 2. ASK: [...] Transfer patient to the Covid-19 Hotline Number ([phone]) for further instructions. If 'No' to all of the questions above Is this the first test for Covid 19 Yes If no, please list date of previous test, result, and type of test (Molecular, Antigen, Antibody orunknown): Resides in Nursing/custodial or other residential setting No Employee or Household Member of Employee No Healthcare Worker No Telephone call placed/received to schedule Covid 19 testing with patient. Ordering provider: Dr. Gilmer Gutiérrez Testing Facility: [facility] Date of Testin03/26/2021 Time of Testin:30am Symptoms: No Give directions to testing facility. All passengers in the vehicle MUST wear a mask. Leave dogs/pets at home or have them crated/behind a net. * Telephone Encounter - Sayda Ortega - 03/09/2021 3:16 PM EST 03/09 - Rajan will check [facility] to see if he can have COVID [...] Vascular Unit Level 3 [place] [phone] Tiera Goldsmith MD [facility] [place] [address] Scheduled Procedures Name Priority Associated Diagnoses Date/Ti me ELECTROPHYSIOLOGY PROCEDURE Persistent atrial fibrillation CARDIOVERSION-ELECTIVE (WRVU 2) persistent atrial fibrillation TRANSESOPHAGEAL ECHOCARDIOGR AM (WRVU 2.3) persistent atrial fibrillation documented as of this encounter Visit Diagnoses Not on filedocumented in this encounter Care Teams Golf Range Attendant Relationship Specialty Start Date End Date Tami Olivia [address] [place] [address] PCP - General Family Medicine 12/30/20 documented as of this encounter
--- OUTSIDE RECORDS SUMMARY | 2023-12-11 23:02 | XMS_ITS | Encounter Summary ---
Author Organization [facility] Address [facility] [place] [address] Care Team Providers Care Black Belt Name Role Phone Tami Olivia Primary Care Provider [phone] Reason for Referral * Consultation (Urgent) - Closed Specialty Diagnoses / Procedures Referred By Bert gautam Referred To Contact Otolaryngology Diagnoses Pharyngeal lesion PET avid left lateral pharyngeal wall uptake, please eval Patient is scheduled for Left Upper Lobe lung Lobectomy on 03/29/2021, Gilmer Gutiérrez MD [facility] [place] [address] [facility] Otolaryngology [address] [place] [id number] Referral ID Status Reason Start Date Expiration Date V isits Requested Visits Authorized [id number] Closed Consult, Test & Treat 02/13/2021 02/13/2022 1 1 Encounter Details Date Type Department Care Team (Late st Contact Info) Description 02/13/2021 2:15 PM EST Office [place] [address] Gilmer Gutiérrez MD [facility] [place] [address] Mass of upper lobe of [...] this encounter Patient Instructions * Patient Instructions* eMgan Reza RN - 02/13/2021 2:15 PM EST [...] and drinking. Your procedure will occur in beet end supervisor area 4W. Please park in the parking garage and you will come into the [facility] on level 4. Go straight, all the way to the end of the soto, that is Same day surgery wooden desk also beet end supervisor area 4W. Bronchoscopy is the term for [...] will receive a phone call from the [employer] Hotline [phone] prior to your surgery to schedule you an appointment. Please call the [employer] Hotline number with any questions or concerns. [...] Follow Up Note MD Matt Fischer PA-C [place] [id number] FAX: Chief Complaint: Follow-up for spiculated 2.8 [...] Dr. Gutiérrez. STEVE Arriaga 02/13/21 Thoracic Surgery [facility] * Gilmer Gutiérrez MD - 02/13/2021 2:15 PM EST Thoracic surgery follow-up visit I saw and examined Mr. Marquez with STEVE Brooks, and agree with her findings, assessment and plan. In brief: Chief complaint: Spiculated left upper lobe lung nodule History of present illness: Mr. Marquez is a 70-year-old man with a [id number] smoking history referred initially for a 2.8 [...] the prostate lesion, and referral to an filing machine operator for direct examination of the pharynx. Pending [...] Vascular Unit Level 3 [place] [address] Tiera Goldsmith MD [facility] [place] [address] Scheduled Procedures Name Priority Associated Diagnoses Date/Ti [...] 3:56 PM EST) Neutrophil % 68.8 % [facility] Neutrophil Absolute 6.59(H) 1.70 - 6.10 x10(3)/mc L [facility] Lymph % 23.4 % [facility] Lymphocytes Abs 2.2 0.9 - 3.2 x10(3)/[facility] Monocyte % 6.8 % [facility] Monocyte Abs 0.6 0.3 - 0.9 x10(3)/[facility] Eos % 0.3 % [facility] Eosinophils Abs 0.0 0.0 - 0.4 x10(3)/[facility] Basophil % 0.5 % [facility] Baso Absolute 0.0 0.0 - 0.1 x10(3)/[facility] Immature Gran % 0.20 % [facility] Comment: Immature granulocytes(IG's)percentage and absolute count will include metamyelocytes, myelocytes, and promyelocytes. Blood smears from CBCs yielding IG's will be scanned manually for concordance. If this scan disagrees with the automated IG or if promyelocytes are noted, a manual differential will be performed. Immature Gran Absolute 0.02 0.00 - 0.04 x10(3)/[facility] Blood 02/13/2021 3:56 PM EST 02/13/2021 4:15 PM EST Narrative Resulting Agency Comment Spec In Lab Gilmer Gutiérrez MD HEMATOLOGY ORDER PHILOMENA Performing Organization Address City/State/[facility] Co de Phone Number [facility] [place] [address] * (ABNORMAL) Hemogram (02/13/2021 3:56 PM EST) White Blood Cell 9.6(H) 4.0 - 9.5 x10(3)/[facility] Red Blood Cell 4.63 4.58 - 5.54 x10(6)/[facility] Hemoglobin 14.5 13.7 - 16.5 g/dL [facility] Hematocrit 42.1 40.5 - 48.5 % [facility] Mean Cell Volume 90.9 82.9 - 93.1 fL [facility] Mean Cell Hemoglobin 31.3 27.5 - 32.1 pg [facility] Mean Cell Hemoglobin Concentration 34.4 32.0 - 35.7 g/dL [facility] Platelet 202 145 - 357 x10(3)/mc L [facility] RDW Standard Deviation 43.0 36.0 - 45.0 fL [facility] RDW coefficient of variation 13.1 11.4 - 13.8 % [facility] Mean Platelet Volume 10.3 7.6 - 12.9 fL [facility] NRBC% auto 0.0 % [facility] NRBC Absolute 0.000 0.000 - 0.000 x10(3)/mc L [facility] Blood 02/13/2021 3:56 PM EST 02/13/2021 4:15 PM EST Narrative Resulting Agency Comment Spec In Lab Gilmer Gutiérrez MD HEMATOLOGY ORDER PHILOMENA Performing Organization Address [facility] [place] [facility] Co de Phone Number [facility] [place] [address] * PSA (Ultrasensitive) (02/13/2021 3:56 PM EST) Prostate Specific Antigen (Ultrasensitive ) 2.71 0.00 - 4.00 ng/mL [facility] Comment: PLEASE NOTE: The above reference interval is intended for healthy males with an intact prostate. Values within this reference interval may indicate recurrence in men who have undergone radical prostatectomy. Blood 02/13/2021 3:56 PM EST 02/13/2021 4:15 PM EST Narrative Resulting Agency Comment Spec In Lab Gilmer Gutiérrez MD CHEMISTRY ORDERA BLES Performing Organization Address City/[facility]/ZIP Co de Phone Number [facility] [place] [address] * (ABNORMAL) Comprehensive metabolic panel (non-fasting) (02/13/2021 3:56 PM EST) Glucose 81 65 - 199 mg/dL [facility] Comment:Diabetes: >=200 mg/d L plus symptoms Blood Urea Nitrogen 21(H) 10 - 20 mg/dL [facility] Creatinine 1.02 0.80 - 1.50 mg/dL [facility] Sodium 142 135 - 145 mmol/L [facility] Potassium 3.9 3.5 - 5.0 mmol/L [facility] Comment: Please note: ??Patients with WBC >100,000 may have falsely elevated Potassium levels. ??For accurate Potassium quantification in these patients send serum separator tube (gold top) for subsequent determinations. ??Contact the Clinical Chemistry Laboratory if there are any questions. Chloride 106 98 - 107 mmol/L [facility] Carbon Dioxide 22 22 - 31 mmol/L [facility] Anion Gap 14 5 - 15 mmol/L [facility] Calcium 9.9 8.5 - 10.5 mg/dL [facility] Protein, Total 7.1 6.1 - 8.0 g/dL [facility] Albumin 4.4 3.2 - 5.2 g/dL [facility] Aspartate Aminotransferase 16 0 - 39 unit/L [facility] Alanine Aminotransferase 14 0 - 55 unit/L [facility] Alkaline Phosphatase 55 40 - 130 unit/L [facility] Bilirubin, Total 0.4 0.2 - 1.3 mg/dL [facility] Est Glomerular Filtration Rate 74 >=60 mL/min/1. 73 m?? [facility] Comment: This patient? s estimated [...] MD CHEMISTRY ORDERA BLES Performing Organization Address City/[facility] Co de Phone Number [facility] [place] [address] * EKG 12 Lead (02/13/2021 3:15 PM EST) Ventricular rate 73 BPM MUSE SYSTEM Atrial Rate 73 BPM MUSE SYSTEM P-R Interval 170 ms MUSE SYSTEM QRS Duration 104 ms MUSE SYSTEM Q-T Interval 390 ms MUSE SYSTEM QTC Calculated (Bezet) 429 ms MUSE SYSTEM Calculated P [place] 83 degrees MUSE SYSTEM Calculated R [place] 88 degrees MUSE SYSTEM Calculated T [place] 57 degrees MUSE SYSTEM INTERPRETATION Sinus rhythm with Premature atrial complexes Otherwise normal ECG When compared with ECG of 16-JAN-2021 14:36, No significant change was found Confirmed by MD Chaka, Srini Cottrell ([id number]) on 02/16/2021 9:29:07 AM MUSE SYSTEM 02/13/2021 3:15 PM EST 02/16/2021 9:29 AM EST Gilmer Gutiérrez MD ECG ORDERABLES Performing Organization Address [facility] [place] [facility] Co de Phone Number MUSE SYSTEM documented in this encounter Visit Diagnoses Diagnosis Mass of upper lobe of left lung Prostate enlargement Hypertrophy of prostate without urinary obstruction and other lower urinary tract symptoms (LUTS) Pharyngeal lesion Unspecified disease of pharynx documented in this encounter Care Teams Black Belt Relationship Specialty Start Date End Date Tami Olivia [address] [place] [address] PCP - General Family Medicine 12/30/20 documented as of this encounter
--- OUTSIDE RECORDS SUMMARY | 2023-12-11 23:02 | XMS_ITS | Encounter Summary ---
Author Organization [facility] Address [facility] [place] [address] Care Team Providers Care Resaw Tailer Name Role Phone Tami Olivia Primary Care Provider Encounter Details Date Type Department Care Team (Late st Contact Info) Description 02/27/2021 Telephone [place] [address] Megan Reza RN Social History [...] Vascular Unit Level 3 [place] [address] Tiera Goldsmith MD [facility] [place] [address] Scheduled Procedures Name Priority Associated Diagnoses Date/Ti me ELECTROPHYSIOLOGY PROCEDURE Persistent atrial fibrillation CARDIOVERSION-ELECTIVE (WRVU 2) persistent atrial fibrillation TRANSESOPHAGEAL ECHOCARDIOGR AM (WRVU 2.3) persistent atrial fibrillation documented as of this encounter Visit Diagnoses Not on filedocumented in this encounter Care Teams Resaw Tailer Relationship Specialty Start Date End Date Tami Olivia [address] [place] [address] PCP - General Family Medicine 12/30/20 documented as of this encounter
--- OUTSIDE RECORDS SUMMARY | 2023-12-11 23:02 | XMS_ITS | Encounter Summary ---
Author Organization [facility] Address [facility] [place] [address] Care Team Providers Care Milling Planer Operator Name Role Phone SudhakarJacksonTami Primary Care Provider [phone] Reason for Visit * Diagnostic Test (Routine) - Specialty Diagnoses / Procedures Referred By Bert gautam Referred To Contact Radiology Diagnoses Mass of upper lobe of left lung Pre-operative cardiovascular examination, high risk surgery Procedures NM Exercise Stress and Rest Myocardial Perfusion Gilmer Gutiérrez MD [facility] [place] [address] [place] [address] Referral ID Status Reason Start Date Expiration Date Visits Requested Visits Authorized [id number] Specialty Service Requested 02/09/2021 03/26/2021 4 4 Encounter Details Date Type Department Care Team (Latest Contact Info) Description 02/13/2021 10:02 AM [facility] Hospital Encounter [place] [address] Gilmer Gutiérrez MD [facility] [place] [address] Discharge Disposition: Home Social History [...] Vascular Unit Level 3 [place] [address] Dario Goldsmith MD [facility] [place] [address] Scheduled Procedures Name Priority Associated Diagnoses Date/Ti [...] signed by: DARIO GOLDSMITH MD, [facility] ([phone]), at 02/13/2021 3:29 PM Narrative 02/13/2021 3:29 [...] the resident's interpretationand agree with the findings, DRAIO GOLDSMITH MD at 02/13/2021 3:29 PM Thank you for letting us participate in the care of this patient. If youare a health care provider and have any questions regarding this report,please contact the number below. For patients who have questions please contactthe health director of critical care that requested your imaging first. Electronically signed by: DARIO GOLDSMITH MD, [facility]([phone]), at 02/13/2021 3:29 PM Gilmer Gutiérrez MD IMG NM ORDERABLE S documented in this encounter Visit Diagnoses Not on filedocumented in this encounter Care Teams Milling Planer Operator Relationship Specialty Start Date End Date Tami Olivia [address] [place] [address] PCP - General Family Medicine 12/30/20 documented as of this encounter
--- OUTSIDE RECORDS SUMMARY | 2023-12-11 23:02 | XMS_ITS | Clinical Summary ---
Author Organization [facility] Address [address] [place] [address] Care Team Providers Care Bioinformatics Support Specialist Name Role Phone Tami Olivia Primary Care Provider [phone] Allergies Active Allergy Reactions Criticality Noted Date [...] Palpitations 11/05/2019 COPD (chronic obstructive pulmonary disease) ([facility]) 11/05/2019 ADHD 11/05/2019 Depression 11/05/2019 Tobacco abuse [...] Cancer Screening 04/16/2023 04/16/2022, 022 Care Teams Bioinformatics Support Specialist Relationship Specialty Start Date End Date Tami Olivia [address] [place] [address] PCP - General 12/04/19
--- OUTSIDE RECORDS SUMMARY | 2023-12-11 23:02 | XMS_ITS | Encounter Summary ---
Author Organization [facility] Address [address] [place] [address] Care Team Providers Care Syrup Filterer Name Role Phone Tami Olivia Primary Care Provider [phone] Reason for Visit * Reason Comments Medications Refill Encounter Details Date Type Department Care Team (Late st Contact Info) Description 04/09/2023 Refill [facility] Rheumatology [address], [place] [id number] Mena Ng MD [address] [facility] [address] [place] [address] Medications Refill Social History Tobacco [...] documented as of this encounter Care Teams Syrup Filterer Relationship Specialty Start Date End Date Tami Olivia [address] [place] [address] PCP - General 12/04/19 documented as of this encounter
--- OUTSIDE RECORDS SUMMARY | 2023-12-11 23:02 | XMS_ITS | Encounter Summary ---
Author Organization [facility] Address [facility] [place] [address] Care Team Providers Care Industrial Service Technician Name Role Phone Tami Olivia Primary Care Provider [phone] Encounter Details Date Type Department Care Team (Latest Contact Info) Description 02/13/2021 10:02 AM EST Hospital Encounter Non-In[place] [address] Gilmer Gutiérrez MD [facility] [place] [address] Discharge Disposition: Home Social History Tobacco Use [...] Vascular Unit Level 3 [place] [address] Tiera Goldsmith MD [facility] [place] [address] Scheduled Procedures Name Priority Associated [...] filedocumented in this encounter Care Teams Industrial Service Technician Relationship Specialty Start Date End Date Tami Olivia [address] [place] [address] PCP - General Family Medicine 12/30/20 documented as of this encounter
--- OUTSIDE RECORDS SUMMARY | 2023-12-11 23:02 | XMS_ITS | Encounter Summary ---
Author Organization [facility] Address [facility] [place] [address] Care Team Providers Care Paralegal Specialist Name Role Phone Tami Olivia Primary Care Provider Encounter Details Date Type Department Care Team (Late st Contact Info) Description 01/23/2021 Telephone [place] [address] Anali Benítez Social History Tobacco Use Types [...] Vascular Unit Level 3 [place] [address] Tiera Goldsmith MD [facility] [place] [address] Scheduled Procedures Name Priority Associated Diagnoses Date/Ti me ELECTROPHYSIOLOGY PROCEDURE Persistent atrial fibrillation CARDIOVERSION-ELECTIVE (WRVU 2) persistent atrial fibrillation TRANSESOPHAGEAL ECHOCARDIOGR AM (WRVU 2.3) persistent atrial fibrillation documented as of this encounter Visit Diagnoses Not on filedocumented in this encounter Care Teams Paralegal Specialist Relationship Specialty Start Date End Date Tami Olivia [address] [place] [address] PCP - General Family Medicine 12/30/20 documented as of this encounter
--- OUTSIDE RECORDS SUMMARY | 2023-12-11 23:02 | XMS_ITS | Encounter Summary ---
Author Organization [facility] Address [facility] [place] [address] Care Team Providers Care Acura Sales Consultant Name Role Phone Tami Olivia Primary Care Provider [phone] Reason for Visit * Auth/Cert Specialty Diagnoses / Procedures Referred By Bert gautam Referred To Contact Diagnoses Mass of upper lobe of left lung left upper lobe lung mass Procedures PRO THORACOSCOPY SURG LOBECTOMY PRO BRONCHOSCOPY, DIAGNOSTIC @THORACOSCOPY,SURGICAL,W\LOBECTOMY, TOTAL OR SEGMENTAL (WRVU 24.64) BRONCHOSCOPY, DIAGNOSTIC (WRVU 2.78) Referral ID Status Reason Start Date Expiration Date Visits Re quested Visits Authorized [id number] 1 1 Encounter Details Date Type Department Care Team (Late st Contact Info) Description 03/29/2021 12:09 PM EST Anesthesia Event [place] [address] Anali Dubon MD [facility] [place] [address] Anesthesia Record Procedure Summary Procedure Name Responsible [...] 0802; median cubital vein (antecubital fossa), left; hvwp-rhs-lswpvh catheter system; Anatomical Landmarks; 20 gauge; Rosy; [...] 1341; metacarpal vein (top of hand), left; hlgq-waq-evprhb catheter system; Anatomical Landmarks; 18 gauge; Kerry [...] Procedure Summary Date: 03/29/21 Room / Location: [facility] MAIN OR Anesthesia Start: 1209 Anesthesia Stop: [...] (left upper lobe lung mass) Surgeons: Gilmer Guitérrez MD Responsible Provider: Anali Dubon MD Anesthesia Type: general ASA Status: 2 All Anesthesia Providers: Anesthesiologist: Anali Dubon MD Cable Spooler: Sommer Payne MD Vitals Value Taken Time BP 123/56 03/29/21 1646 Temp 36.3 ??C (97.3 ??F) 03/29/21 1646 Pulse 73 03/29/21 1656 Resp 17 03/29/21 1656 SpO2 96 % 03/29/21 1656 Pain Level Vitals shown include unvalidated device data. Patient Location: PACU/[facility] Level of Consciousness: Awake and Alert [...] Unit Level 3 [place] [address] Tiera Goldsmith MD [facility] [place] [address] Scheduled Procedures Name Priority Associated Diagnoses Date/Ti [...] mg documented in this encounter Care Teams Acura Sales Consultant Relationship Specialty Start Date End Date Tami Olivia [address] [facility] [address] PCP - General Family Medicine 12/30/20 documented as of this encounter
--- OUTSIDE RECORDS SUMMARY | 2023-12-11 23:02 | XMS_ITS | Encounter Summary ---
Author Organization [facility] Address [facility] [place] [address] Care Team Providers Care Automatic Lump Making Machine Tender Name Role Phone SudhakarJacksonTami Primary Care Provider [phone] Reason for Referral * Diagnostic Test (Routine) - Closed Specialty Diagnoses / Procedures Referred By Bert gautam Referred To Contact Radiology Diagnoses Mass of upper lobe of left lung Pre-operative cardiovascular examination, high risk surgery Procedures MRI Brain wwo Contrast (Generic) Gilmer Gutiérrez MD [facility] [place] [address] [place] [address] Referral ID Status Reason Start Date Expiration Date V isits Requested Visits Authorized [id number] Closed Specialty Service Requested 01/16/2021 07/16/2022 1 1 Reason for Visit * Diagnostic Test (Routine) - Closed Specialty Diagnoses / Procedures Referred By Bert gautam Referred To Contact Radiology Diagnoses Mass of upper lobe of left lung Pre-operative cardiovascular examination, high risk surgery Procedures MRI Brain wwo Contrast (Generic) Gilmer Gutiérrez MD [facility] [place] [address] [place] [address] Referral ID Status Reason Start Date Expiration Date V isits Requested Visits Authorized [id number] Closed Specialty Service Requested 01/16/2021 07/16/2022 1 1 Encounter Details Date Type Department Care Team (Latest Contact Info) Description 02/10/2021 7:42 AM EST - 02/10/2021 8:40 AM EST Hospital [place] [address] Gilmer Gutiérrez MD [facility] [place] [address] Mass of upper lobe of left lung; [...] Vascular Unit Level 3 [place] [address] Tiera Goldsmith MD [facility] [place] [address] Scheduled Procedures Name Priority Associated Diagnoses Date/Ti [...] questions please contact the health resident care manager rn that requested your imaging first. ? Narrative [...] have questions please contactthe health resident care manager rn that requested your imaging first. Electronically signed by: Ness Murillo MD, [facility]([phone]), at 02/10/2021 3:23 PM Gilmer Gutiérrez MD IMG MRI ORDERABL ES [...] mLs documented in this encounter Care Teams Automatic Lump Making Machine Tender Relationship Specialty Start Date End Date Tami Olivia [address] [place] [address] PCP - General Family Medicine 12/30/20 documented as of this encounter
--- OUTSIDE RECORDS SUMMARY | 2023-12-11 23:02 | XMS_ITS | Encounter Summary ---
Author Organization [facility] Address [facility] [place] [address] Care Team Providers Care Textile Worker Name Role Phone Tami Olivia Primary Care Provider [phone] Encounter Details Date Type Department Care Team (Latest Contact Info) Description 02/13/2021 12:56 PM EST - 02/13/2021 11:59 PM EST Hospital Encounter Pulmonology at [facility] [place] [address] Mass of upper lobe of left lung; [...] Vascular Unit Level 3 [place] [address] Tiera Goldsmith MD [facility] [place] [address] Scheduled Procedures Name Priority Associated [...] / FVC LLN 63 % COMPAS PFT [id number] Actual Pre-BD 3.63 L/s COMPAS PFT MFP32-50 Pre-BD % of Predicted 159 % COMPAS PFT DAY28-24 Predicted 2.29 L/s COMPAS PFT HOZ52-72 Pre-BD Z-Score 1.24 COMPAS PFT DLCO Hb [...] examination documented in this encounter Care Teams Textile Worker Relationship Specialty Start Date End Date Tami Olivia [address] [place] [address] PCP - General Family Medicine 12/30/20 documented as of this encounter
--- OUTSIDE RECORDS SUMMARY | 2023-12-11 23:02 | XMS_ITS | Encounter Summary ---
Author Organization [facility] Address [facility] [place] [address] Care Team Providers Care Boat Deckhand Name Role Phone Tami Olivia Primary Care Provider [phone] Reason for Visit * Auth/Cert Specialty Diagnoses / Procedures Referred By Bert gautam Referred To Contact Diagnoses Mass of upper lobe of left lung left upper lobe lung mass Procedures PRO THORACOSCOPY SURG LOBECTOMY PRO BRONCHOSCOPY, DIAGNOSTIC @THORACOSCOPY,SURGICAL,W\LOBECTOMY, TOTAL OR SEGMENTAL (WRVU 24.64) BRONCHOSCOPY, DIAGNOSTIC (WRVU 2.78) Referral ID Status Reason Start Date Expiration Date Visits Re quested Visits Authorized [id number] 1 1 Encounter Details Date Type Department Care Team (Late st Contact Info) Description 03/26/2021 11:30 AM [facility] [place] [address] COVID-19 ruled out Social History Tobacco Use [...] Vascular Unit Level 3 [place] [phone] Tiera Goldsmith MD [facility] [place] [address] Scheduled Procedures Name Priority Associated Diagnoses Date/Ti [...] EST) SARS-CoV-[address] Not Detected [facility] Comment: This result should be [...] diagnosis of COVID-19 is performed using the [employer] m SARS-CoV-2 Assay as authorized by the FDA Emergency Use Authorization (EUA). This EUA assay is intended for In-vitro Diagnostic (IVD) use with respiratory specimens such as nasopharyngeal swabs collected from individuals during the acute phase of infection. This assay is performed based on the instructions for use provided by [employer] and additional guidance provided by CDC and FDA. Testing is performed in the [facility] within the Department of Pathology and Laboratory Medicine at [facility], certified under the Clinical Laboratory Improvement Amendments [...] fact sheets at the following FDA website: https://www.fda.gov/medical-devices/rccgyvmszta-oolbjye-9189-msbfu-37-lstsjmirv- use-a wvxyfxiltugzm-qkifepw-qdnjdlz/wghdb-wvootgclrll-huxi SARS-CoV-2 RNA Source ORDER DISPATCHER Swab [facility] Nasopharyngeal Swab 03/26/19 2:51 PM EST 03/26/2021 2:51 PM EST Comment:Symptoms->Asymptomat ic Narrative Resulting Agency Comment Spec In Lab Gilmer Gutiérrez MD MOLECULAR CARMEN GALINDO [facility] [place] [address] documented in this encounter Visit Diagnoses Diagnosis COVID-19 ruled out documented in this encounter Care Teams Boat Deckhand Relationship Specialty Start Date End Date Tami Olivia [address] [place] [address] PCP - General Family Medicine 12/30/20 documented as of this encounter
--- OUTSIDE RECORDS SUMMARY | 2023-12-11 23:02 | XMS_ITS | Encounter Summary ---
Author Organization [facility] Address [address] [place] [address] Care Team Providers Care Credit Reporter Name Role Phone Tami Olivia Primary Care Provider [phone] Reason for Visit * Reason Comments Follow-up RS3PE syndrome, hand + joint pain - 1yr. Pt states feeling good as far as RA. Has had cancer, feeling very weak. New pharmacy-check? Encounter Details Date Type Department Care Team (Late st Contact Info) Description 04/20/2022 11:45 EST Office Visit [facility] Rheumatology [address] [place], [place] [id number] Mena Ng MD [address] [facility] [place] [address] RS3PE syndrome (Primary Dx); RS3PE [...] Mena Ng MD - 04/20/2022 1145 EST [facility] -Rheumatology follow up [...] Squamous Cell Carcinoma of the left lung -[facility] 03/2021-lobectomy -recurrent left pleural effusion. HPI Rajan Marquez is here in follow up . New diagnosis of squamous cell ca of lung in 02/2022 at [facility] Allergies include: Cat dander and Dog dander [...] eye exam uptodate RTC one year Mena gN MD 04/20/2022 11:55 documented in this encounter [...] 01/26/2022 added in this encounter Care Teams Credit Reporter Relationship Specialty Start Date End Date Tami Olivia [address] [place] [address] PCP - General 12/04/19 documented as of this encounter
--- OUTSIDE RECORDS SUMMARY | 2023-12-11 23:02 | XMS_ITS | Encounter Summary ---
Author Organization [facility] Address [facility] [place] [address] Care Team Providers Care Fish Processor Name Role Phone Tami Olivia Primary Care Provider [phone] Reason for Visit * Diagnostic Test (Routine) - Specialty Diagnoses / Procedures Referred By Bert gautam Referred To Contact Radiology Diagnoses Mass of upper lobe of left lung Pre-operative cardiovascular examination, high risk surgery Procedures NM Exercise Stress and Rest Myocardial Perfusion Gilmer Gutiérrez MD [facility] [place] [address] [place] [address] Referral ID Status Reason Start Date Expiration Date Visits Requested Visits Authorized [id number] Specialty Service Requested 02/09/2021 03/26/2021 4 4 Encounter Details Date Type Department Care Team (Latest Contact Info) Description 02/13/2021 10:03 AM EST - 02/13/2021 12:55 PM [facility] Hospital Encounter [place] [phone] Gilmer Gutiérrez MD [facility] [place] [address] Discharge Disposition: Home Social History [...] Vascular Unit Level 3 Wing B at [facility] [place] [address] Dario Goldsmith MD [facility] [place] [address] Scheduled Procedures Name Priority Associated Diagnoses Date/Ti [...] have questions please contact the health director long term care that requested your imaging first. ? Electronically signed by: DARIO GOLDSMITH MD, [facility] ([phone]), at 02/13/2021 3:29 PM Narrative 02/13/2021 3:29 [...] who have questions please contactthe health director long term care that requested your imaging first. Electronically signed by: DARIO GOLDSMITH MD, [facility]([phone]), at 02/13/2021 3:29 PM Gilmer Gutiérrez MD [...] mCi documented in this encounter Care Teams Fish Processor Relationship Specialty Start Date End Date Tami Olivia [address] [place] [address] PCP - General Family Medicine 12/30/20 documented as of this encounter
--- OUTSIDE RECORDS SUMMARY | 2023-12-11 23:02 | XMS_ITS | Encounter Summary ---
Author Organization [facility] [place] [address] Care Team Providers Care Back Winder Name Role Phone Tami Olivia Primary Care Provider [phone] Encounter Details Date Type Department Care Team (Late st Contact Info) Description 01/17/2021 Notes [place] [address] Anali Benítez Social History Tobacco Use Types [...] .. Anali Benítez, [place]TT[place] [address] [email or web address] HPI: Rajan Marquez is a 70 [...] () e-cigarette (X) Cigarettes Brand currently smoking: [place] Current amount: 1ppd Age initiated: 10yrs Years [...] in places where it is forbidden? (ex. advent) No Yes 0 3. Which cigarette would [...] The patient has been provided with a [facility] Smoking Cessation packet. The patient has my [...] Anali Benítez 01/17/21 Tobacco Treatment Program [facility] documented in this encounter Plan of Treatment Upcoming Encounters Date Type Department Care Team (Late st Contact Info) Description 12/12/2023 Hospital Encounter Heart and Vascular Unit Level 3 [place] [address] Tiera Goldsmith MD [facility] [place] [address] Scheduled Procedures Name Priority Associated Diagnoses Date/Ti me ELECTROPHYSIOLOGY PROCEDURE Persistent atrial fibrillation CARDIOVERSION-ELECTIVE (WRVU 2) persistent atrial fibrillation TRANSESOPHAGEAL ECHOCARDIOGR AM (WRVU 2.3) persistent atrial fibrillation documented as of this encounter Visit Diagnoses Not on filedocumented in this encounter Care Teams Back Winder Relationship Specialty Start Date End Date Tami Olivia [address] [place] [address] PCP - General Family Medicine 12/30/20 documented as of this encounter
--- OUTSIDE RECORDS SUMMARY | 2023-12-11 23:03 | XMS_ITS | Encounter Summary ---
Author Organization [facility] Address [address] [place] [address] Care Team Providers Care Ammonia Distiller Name Role Phone Unknown, Provider Primary Care Provider [phone] Encounter Details Date Type Department Care Team (Late st Contact Info) Description 02/05/2012 Results Only [facility] Laboratory Services - [facility] ([facility]) [address] [place], [place] [address] Марина Mann MD [address] [place] [address] Social History Tobacco Use Types Packs/Day Years [...] ? RAJAN MARQUEZ ? Accession #: ? [id number] ? : ? 1950 (Age: 61) ??M ? Collect Date: ? 02/05/2012 ? Location: ? [facility] ? Receive Date: ? 02/06/2012 ? Provider: МАРИНА MANN MD Copy to: IRIS ROY EXTRUSION LINE OPERATOR ? Final Pathologic Diagnosis: ? Skin of ear, left external, shave biopsy: - Fibroepithelial polyp (soft fibroma). Microscopic Description: ? Sections are of a pedunculated portion of skin. ??The epidermis is relatively unremarkable. ??Within the dermis, there is loose fibrous tissue with stellate fibroblasts. ??There are lobules of mature adipose tissue. ??(Dr. Iglesias)/[facility] Document reviewed and electronically signed by: [...] entirely submitted as (A1) and (A2). (Ronit Juarez)/[facility] End of Report RAYNA KUMAR 02/05/2012 02/06/2012 19: 45 EST Марина Mann MD PATHOLOGY ORDERABLES RAYNA KUMAR [address] [place] [address] documented in this encounter Visit Diagnoses Not on filedocumented in this encounter Care Teams Ammonia Distiller Relationship Specialty Start Date End Date Unknown, Provider, PCP - General 02/06/12 02/06/12 documented as of this encounter
--- OUTSIDE RECORDS SUMMARY | 2023-12-11 23:03 | XMS_ITS | Encounter Summary ---
Author Organization [facility] Address [address] [place] [address] Care Team Providers Care Brewmaster Name Role Phone Tami Olivia Primary Care Provider [phone] Encounter Details Date Type Department Care Team (Late st Contact Info) Description 08/10/[address] [facility] Pathology & [facility] [address] [place] [address] Outr Resulting Lab, Provider Social History Tobacco [...] PSA 4.7 <=6.5 ng/mL 08/10/2021 22:25 EDT [facility] Blood VENOUS BLOOD / Unknown 08/10/2021 12:55 EDT 08/10/2021 21:07 EDT Narrative [facility] - 08/10/2021 22:25 EDT NOTE: Serum PSA concentration should not be interpreted as absolute evidence for the presence or absence of malignant disease. Assayed on Siemens [employer]IA InGaugeItaur XPT using chemiluminescent technology.??Values obtained by using different assay methods cannot be used interchangeably. Provider Outr Resulting Lab CHEMISTRY & BLOOD GAS ORDERABLES [facility] [address] [place] [address] documented in this encounter Visit Diagnoses Not on filedocumented in this encounter Care Teams Brewmaster Relationship Specialty Start Date End Date Tami Olivia [address] [place] [address] PCP - General 12/04/19 documented as of this encounter
--- OUTSIDE RECORDS SUMMARY | 2023-12-11 23:03 | XMS_ITS | Encounter Summary ---
Author Organization [facility] Address [address] [place] [address] Care Team Providers Care Jail Officer Name Role Phone Tami Olivia Primary Care Provider [phone] Encounter Details Date Type Department Care Team (Late st Contact Info) Description 09/28/2021 Lab Requisition [facility] Pathology & Laboratory Medicine - [facility] [address] [place] [address] Outr Resulting Lab, Provider Social History Tobacco [...] PSA 2.4 <=6.5 ng/mL 09/28/2021 22:36 EDT [facility] Blood VENOUS BLOOD / Unknown 09/28/2021 10:40 EDT 09/28/2021 21:24 EDT Narrative [facility] - 09/28/2021 22:36 EDT NOTE: Serum PSA concentration should not be interpreted as absolute evidence for the presence or absence of malignant disease. Assayed on Siemens [employer]VIA [employer] XPT using chemiluminescent technology.??Values obtained by using different assay methods cannot be used interchangeably. Provider Outr Resulting Lab CHEMISTRY & BLOOD GAS ORDERABLES [facility] [address] [place] [address] documented in this encounter Visit Diagnoses Not on filedocumented in this encounter Care Teams Jail Officer Relationship Specialty Start Date End Date Tami Olivia [address] [place] [address] PCP - General 12/04/19 documented as of this encounter
--- OUTSIDE RECORDS SUMMARY | 2023-12-11 23:03 | XMS_ITS | Encounter Summary ---
Author Organization [facility] Address [address] [place] [address] Care Team Providers Care Etl Data Architect Name Role Phone Tami Olivia Primary Care Provider [phone] Reason for Visit * Reason Onset Date Comments Medications Refill 05/10/2020 Encounter Details Date Type Department Care Team (Late st Contact Info) Description 05/10/2020 Refill [facility] Rheumatology [address] [place], [place] [phone] Rowena Ornelas MD [address] [facility] [address] [place] [phone] Medications Refill Social History Tobacco Use Types [...] on filedocumented in this encounter Care Teams Etl Data Architect Relationship Specialty Start Date End Date Tami Olivia [address] [place] [address] PCP - General 12/04/19 documented as of this encounter
--- OUTSIDE RECORDS SUMMARY | 2023-12-11 23:03 | XMS_ITS | Encounter Summary ---
Author Organization [facility] Address [address] [place] [address] Care Team Providers Care City Dispatcher Name Role Phone Tami Olivia Primary Care Provider [phone] Reason for Visit * Reason Comments Follow-up RS3PE syndrome Encounter Details Date Type Department Care Team (Late st Contact Info) Description 12/07/2020 13:[address] [facility] Rheumatology [address] [place] [address] Mena Ng MD [address] [facility] [address] [place] [phone] RS3PE syndrome (Primary Dx) Social History Tobacco [...] 12/07/2020 added in this encounter Care Teams City Dispatcher Relationship Specialty Start Date End Date Tami Olivia [address] [place] [address] PCP - General 12/04/19 documented as of this encounter
--- OUTSIDE RECORDS SUMMARY | 2023-12-11 23:03 | XMS_ITS | Encounter Summary ---
Author Organization [facility] Address [address] [place] [address] Care Team Providers Care Radiotelegraph Operator Name Role Phone Tami Olivia Primary Care Provider [phone] Encounter Details Date Type Department Care Team (Late st Contact Info) Description 12/11/2021 Lab Requisition [facility] Pathology & Laboratory Medicine - [facility] [address] [place] [address] Outr Resulting Lab, Provider Social History Tobacco [...] 38 See Note mg/dL 12/11/2021 18:45 EDT [facility] Comment: Reference range unavailable. Clinical correlation required. This Fluid Glucose assay was developed and its performance characteristics determined by [facility]. ??It has not been cleared or approved by the US Food and Drug Administration. Fluid PLEURAL FLUID / Unknown 12/11/2021 11:00 EDT 12/11/2021 17:43 EDT Provider Outr Resulting Lab GEN LAB UNIT COLLECT ORDERABLES [facility] [address] [place] [address] documented in this encounter Visit Diagnoses Not on filedocumented in this encounter Care Teams Radiotelegraph Operator Relationship Specialty Start Date End Date Tami Olivia [address] [place] [address] PCP - General 12/04/19 documented as of this encounter
--- OUTSIDE RECORDS SUMMARY | 2023-12-11 23:03 | XMS_ITS | Encounter Summary ---
Author Organization [facility] Address [address] [place] [address] Care Team Providers Care Sap Portal Developer Name Role Phone Tiffany Gutierres NUT ROASTER Primary Care Provider [phone] Encounter Details Date Type Department Care Team (Late st Contact Info) Description 04/28/2018 Results Only [facility] [phone] Aby Winston MD [address] [place] [address] [place] [address] Social History Tobacco Use Types [...] ? RAJAN MARQUEZ ? Accession #: ? [id number] ? : ? 1950 (Age: 67) ??M [...] (ASCP) 04/28/2018 4:41 PM End of Report [facility] 04/28/2018 16:0 5 EST 04/28/2018 16:05 EST Aby Winston MD PATHOLOGY ORDERClemencia GALINDO [facility] [address] [place] [address] documented in this encounter Visit Diagnoses Not on filedocumented in this encounter Care Teams Sap Portal Developer Relationship Specialty Start Date End Date Tiffany Gutierres, NUT ROASTER [address] [place] [phone] PCP - General 02/07/12 11/04/19 documented as of this encounter
--- OUTSIDE RECORDS SUMMARY | 2023-12-11 23:03 | XMS_ITS | Encounter Summary ---
Author Organization [facility] Address [address] [place] [address] Care Team Providers Care Educational Aide Name Role Phone Tami Olivia Primary Care Provider [phone] Reason for Visit * Reason Onset Date Comments Other Medications Refill 11/06/2019 Encounter Details Date Type Department Care Team (Late st Contact Info) Description 11/05/2019 Refill [facility] [address] [place] [address] Mena Ng MD [address] [facility] [address] [place] [phone] Other; Medications Refill Social History Tobacco Use [...] documented as of this encounter Care Teams Educational Aide Relationship Specialty Start Date End Date Tami Olivia [address] [place] [address] PCP - General 12/04/19 documented as of this encounter
--- OUTSIDE RECORDS SUMMARY | 2023-12-11 23:03 | XMS_ITS | Encounter Summary ---
Author Organization [facility] Address [address] [place] [address] Care Team Providers Care Technical Implementation Lead Name Role Phone Unavailable Primary Care Provider Unavailabl e Encounter Details Date Type Department Care Team (Late st Contact Info) Description 11/05/2019 Abstract [facility] Rheumatology [address] [place] [address] Jeannie Hurtado RN Social History Tobacco Use [...]
--- OUTSIDE RECORDS SUMMARY | 2023-12-11 23:03 | XMS_ITS | Encounter Summary ---
Author Organization [facility] Address [address] [place] [address] Care Team Providers Care Parish Nurse Name Role Phone Tiffany Gutierres DAT INSTRUCTOR Primary Care Provider [phone] Encounter Details Date Type Department Care Team (Latest Contact Info) Description 04/28/2018 13:26 EST - 04/28/2018 23:59 EST Hospital Encounter [address] [address] Unknown, Provider, Discharge Disposition: Home or Self Care Social History Tobacco Use Types Packs/Day Years Used Date Smoking Tobacco: Never Assessed Sex and Gender Information Value Date Recorded Sex Assigned at Not on file Gender Identity Male 11/05/2019 8:00 EDT Sexual Orientation Not on file documented as of this encounter Discharge Disposition Disposition Code Departure Means Destination Home or Self Senior Living documented in this encounter Plan of Treatment Not on file documented as of this encounter Visit Diagnoses Not on filedocumented in this encounter Care Teams Parish Nurse Relationship Specialty Start Date End Date Tiffany Gutierres NP [address] [place] [phone] PCP - General 02/07/12 11/04/19 documented as of this encounter
--- OUTSIDE RECORDS SUMMARY | 2023-12-11 23:03 | XMS_ITS | Encounter Summary ---
Author Organization [facility] Address [address] [place] [address] Care Team Providers Care Supervisor Tubing Name Role Phone Tami Olivia Primary Care Provider [phone] Reason for Visit * Reason Comments Follow-up Lupus anti coag posi tive; feels a lot better; pain is weather dependent. Encounter Details Date Type Department Care Team (Late st Contact Info) Description 12/04/2019 9:45 EDT Office Visit [facility] Rheumatology [address] [place] [address] Mena Ng MD [address] [facility] [address] [place] [address] RS3PE syndrome (Primary Dx); Encounter [...] you in a year. Call if problems [facility] Patient Instructions hydroxychloroquine Pronunciation: shaina drox ee [...] system);or ?? a genetic enzyme deficiency called uwtnaed-2-vrfwptcdy dehydrogenase (G6PD) deficiency. Tell your doctor if [...] may report side effects to FDA at 5-015-XOR-5045. What other drugs will affect hydroxychloroquine? Hydroxychloroquine [...] drugs may affect hydroxychloroquine, including prescription and yphj-ilc-hdaxgqm medicines, vitamins, and herbal products. Not all [...] to ensure that the information provided by [employer] ('[employer]') is accurate, up-to-date, and complete, but no guarantee is made to that effect. Drug information contained herein may be time sensitive. [employer] information has been compiled for use by healthcare practitioners and consumers in the [place] and therefore [employer] does not warrant that uses outside of the [place] are appropriate, unless specifically indicated otherwise. [employer] drug information does not endorse drugs, diagnose patients or recommend therapy. [employer] drug information isan informational resource designed to [...] effective or appropriate for any given patient. [employer] does not assume any responsibility for any aspect of healthcare administered with the aid of information [employer] provides. The information contained herein is not intended to cover all possible uses, directions, precautions, warnings, drug interactions, allergic reactions, or adverse effects. If you have questions about the drugs you are taking, check with your doctor, nurse or pharmacist. Copyright 6829-4914 [employer] Version: 10.02. Revision date: 08/24/2019. Care instructions adapted under license by [facility]. If you have questions about a medical condition or this instruction, always ask your healthcare professional. [employer] disclaims any warranty or liability for your [...] that he has not been to the cottage parent recently. Patient states that a little over [...] Patient states that he has retired from [employer] in [place], [place], felt that he was going crazy staying at home all the time, and has since started working at [employer] in [place], [place] for 4 hours a day. Current [...] file Gets together: Not on file Attends adventist service: Not on file Active member of [...] medical student's documentation. and Supervising Physician Mena Ng MD 12/07/2019 13:23 My edits are in [...] documented as of this encounter Care Teams Supervisor Tubing Relationship Specialty Start Date End Date Tami Olivia [address] [place] [address] PCP - General 12/04/19 documented as of this encounter
--- OUTSIDE RECORDS SUMMARY | 2023-12-11 23:03 | XMS_ITS | Encounter Summary ---
Author Organization [facility] Address [address] [place] [address] Care Team Providers Care Handle Bender Name Role Phone Tami Olivia Primary Care Provider [phone] Reason for Visit * Reason Onset Date Comments Other 08/12/2020 Encounter Details Date Type Department Care Team (Late st Contact Info) Description 08/12/2020 Telephone [facility] - [facility] Rheumatology [address] [place] [address] Mena Ng MD [address] [facility] [address] [place] [address] Other Social History Tobacco Use [...] Rodriguez - 08/12/2020 0946 EDT Patient wants [facility] removed and HCQ should go through [...] documented as of this encounter Care Teams Handle Bender Relationship Specialty Start Date End Date Tami Olivia [address] [place] [address] PCP - General 12/04/19 documented as of this encounter
--- OUTSIDE RECORDS SUMMARY | 2023-12-11 23:03 | XMS_ITS | Encounter Summary ---
Author Organization [facility] Address [address] [place] [address] Care Team Providers Care Jack Strip Assembler Name Role Phone Tami Olivia Primary Care Provider [phone] Encounter Details Date Type Department Care Team (Late st Contact Info) Description 12/11/2021 Lab Requisition [facility] Pathology & Laboratory Medicine - [address] [address] Josephine Sotomayor MD [address] [facility], [address] [place] [id number] Pleural effusion, not elsewhere classified; Malignant neoplasm [...] clonal cell population. See comment. 2 10:12 [facility] Comment The cytospin from the tube is acellular and non-diagnotic. However, the flow study reveals adequately benefits representative numbers of lymphocytes. The results of flow cytometry show no immunophenotypic evidence of involvement by a clonal lymphoproliferativ e. 2 10:12 [facility] Attestation By the signature below, the attending physician certifies that they have 1) personally conducted a gross and/or microscopic examination of the described specimen(s), and/or personally interpreted the results of laboratory testing of the described specimen(s), and 2) personally rendered or confirmed the above diagnosis. 2 10:12 [facility] at 1012 Clinical History 70 yo male with pleural effusion. 2 10:12 [facility] Description Morphology of a cytospin [...] lineage. There are no blasts. 2 10:12 [facility] Flow Markers CD10, CD19, CD20, CD3, CD4, CD45, CD5, CD8, [place], and Lambda 2 10:12 [facility] FDA Disclaimer This test was developed and its performance characteristics determined by the Department of Pathology and Laboratory Medicine, [place], [place] It has not been cleared or [...] high complexity clinical laboratory testing. 2 10:12 [facility] Sample Analyzed Date and Time 12/12/2021 1115 2 10:12 [facility] Scanned Images 2 10:12 [facility] ZZUNK PLEURAL FLUID / Unknown 12/11/2021 11:00 EDT 12/12/2021 8:18 EDT Josephine Sotomayor MD PATHOLOGY ORDERABLES [facility] [address] [place] [address] documented in this encounter Visit Diagnoses Diagnosis Pleural effusion, not elsewhere classified Malignant neoplasm of unspecified part of left bronchus or lung (HCC-CMS) documented in this encounter Care Teams Jack Strip Assembler Relationship Specialty Start Date End Date Tami Olivia [address] [place] [id number] PCP - General 12/04/19 documented as of this encounter
--- OUTSIDE RECORDS SUMMARY | 2023-12-11 23:03 | XMS_ITS | Encounter Summary ---
Author Organization [facility] Address [address] [place] [address] Care Team Providers Care Date Night Sitter Name Role Phone Tami Olivia Primary Care Provider [phone] Encounter Details Date Type Department Care Team (Late st Contact Info) Description 12/06/2021 Lab Requisition [facility] Pathology & Laboratory Medicine - [facility] [address] [place] [address] Outr Resulting Lab, Provider Social History Tobacco [...] * QUANTIFERON INTERPRETATION (PERFORMABLE) (12/05/2021 13:56 EDT) [facility] Quantiferon Interpretation Negative Negative 12/07/2021 9:59 EDT [facility] Comment:No interferon-gamma response to M. tuberculosis antigens was detected. ??Infection with M. tuberculosis is unlikely. A single negative result does not exclude infection with M. tuberculosis. ??In patients at high risk for M. tuberculosis infection, a second test should be considered. TB1 Ag minus Nil 0.01 IU/ml 12/08/19 22 9:59 EDT [facility] TB2 Ag minus Nil 0.01 IU/mL 12/08/19 9:59 EDT [facility] Blood VENOUS BLOOD / Unknown 12/05/2021 13:56 EDT 12/07/2021 9:55 EDT Narrative [facility] - 12/07/2021 9:59 EDT Results were obtained with the [employer] QuantiFERON-TB Gold Plus CLIA. New platform in use 11/16/2020 Provider Outr Resulting Lab IMMUNOLOGY A ND SEROLOGY ORDERABLES [facility] [address] [place] [address] * QUANTIFERON MITOGEN (PERFORMABLE) (12/05/2021 13:56 EDT) Blood VENOUS BLOOD / Unknown 12/05/2021 13:56 EDT 12/06/2021 16:51 EDT Provider Outr Resulting Lab IMMUNOLOGY A ND SEROLOGY ORDERABLES Performing Organization Address [facility] Co de Phone Number [facility] [address] [place] [address] * QUANTIFERON TB2 (PERFORMABLE) (12/05/2021 13:56 EDT) Blood VENOUS BLOOD / Unknown 12/05/2021 13:56 EDT 12/06/2021 16:51 EDT Provider Outr Resulting Lab IMMUNOLOGY A ND SEROLOGY ORDERABLES Performing Organization Address [facility] Co de Phone Number [facility] [address] [place] [address] * QUANTIFERON TB1 (PERFORMABLE) (12/05/2021 13:56 EDT) Blood VENOUS BLOOD / Unknown 12/05/2021 13:56 EDT 12/06/2021 16:51 EDT Provider Outr Resulting Lab IMMUNOLOGY A ND SEROLOGY ORDERABLES Performing Organization Address [facility] Co de Phone Number [facility] [address] [place] [id number] * QUANTIFERON NIL (PERFORMABLE) (12/05/2021 13:56 EDT) Blood VENOUS BLOOD / Unknown 12/05/2021 13:56 EDT 12/06/2021 16:51 EDT Provider Outr Resulting Lab IMMUNOLOGY A ND SEROLOGY ORDERABLES Performing Organization Address [facility] Co de Phone Number [facility] [address] [place] [address] documented in this encounter Visit Diagnoses Not on filedocumented in this encounter Care Teams Date Night Sitter Relationship Specialty Start Date End Date Tami Olivia [address] [place] [id number] PCP - General 12/04/19 documented as of this encounter
--- OUTSIDE RECORDS SUMMARY | 2023-12-11 23:03 | XMS_ITS | Encounter Summary ---
Author Organization [facility] Address [address] [place] [address] Care Team Providers Care Residential Treatment Counselor Name Role Phone Tami Olivia Primary Care Provider [phone] Reason for Visit * Reason Comments Other Encounter Details Date Type Department Care Team (Late st Contact Info) Description 10/14/[address] [facility] Rheumatology [address] [place] [address] Mena Ng MD [address] [facility] [address] [place] [address] Other Social History Tobacco Use [...] documented as of this encounter Care Teams Residential Treatment Counselor Relationship Specialty Start Date End Date Tami Olivia [address] [place] [id number] PCP - General 12/04/19 documented as of this encounter
[2023-12-12] VITALS (48 sets, daily range): BP systolic 94–130; BP diastolic 67–103; PULSE 127–160; RESP 10–37; TEMP 36.6–37.1; O2SAT 87–97
[2023-12-12 03:22] LABS: PTT Activated 53.1 sec (23.6-32.8)
--- NOTE | 2023-12-12 04:30 | RT.EKG_ITS ---
APPROVED REPORT Exam: Resting ECG Reason for Exam: rhythm change to ST Patient Location: I HR:150 bpm ECG Measurements Heart Rate 150 AXIS LA [id number] P 0 QRSd 103 QRS 101 QT 308 T -87 QTc 487 Conclusion Probably atrial flutter Right axis deviation...QRS axis ( 91,269) Nonspecific T abnormalities, lateral leads...T <-0.10mV, I aVL V5 V6
[2023-12-12] MEDS: Metoprolol 50 MG TAB PO ×2 (05:56→12:26)
[2023-12-12 06:39] LABS: HCT 40.7 % (40.0-50.0); HGB 13.5 g/dL (13.5-17.5); MCH 31.5 pg (27.0-33.0); MCHC 33.2 % (32.0-36.0); MCV 95 fL (80-95); Platelet Count 240 10^3/uL (130-400); RBC 4.29 10^6/uL (4.36-5.78); RDW 14.1 % (11.8-14.1); RDW-SD 49.4 fL; WBC 12.02 10^3/uL (4.4-10.8)
[2023-12-12 07:00] LABS: ALT 17 U/L (16-63); AST 25 U/L (15-37); Albumin 3.6 g/dL (3.4-5.0); Alkaline Phosphatase 71 U/L (46-116); Anion Gap 12.3 mmol/L (3-11); BUN 13 mg/dL (7-18); Bilirubin, Total 1.38 mg/dL (0.2-1.0); CO2 24.7 mmol/L (21.0-32.0); CREATININE 1.4 mg/dL (0.70-1.30); Calcium 9.5 mg/dL (8.5-10.1); Chloride 102 mmol/L (98-107); Estimated GFR 53.07 (mL/min/1.73m2); Glucose 117 mg/dL (74-106); Potassium 3.6 mmol/L (3.5-5.1); Sodium 139 mmol/L (136-145); Total Protein 7.8 g/dL (6.4-8.2)
--- NOTE | 2023-12-12 12:32 | INITIAL_ITS ---
Date of service: 12/12/23 Time of Service: 12:32 Care Management Initial Assmt Initial Assessment Reason for Hospitalization: acute exacerbation of HFrEF, afib RVR Functional Status/Living Situation Patient Presentation: Tyrel was seen at his cardiologists office yesterday, and was sent to the ED because he was found to be in afib RVR at his visit. In the ED, HR was noted to be up in the 150s. HR continues at that rate, as consult with [facility] stated - Do not give any IV rate control medications, it is ok for patients rate to remain elevated overnight. He has been accepted to [facility] cardiology service, but is awaiting a bed. When CM met with Tyrel, he was in the bed with HOB elevated. He was wearing an O2 mask. He was pleasant and agreeable to talking. Tyrel stated that he really doesn't feel poorly, just a little short of breath. Tyrel is aware that he is being transferred to [facility] today. Together Tyrel and LACEY updated his HIPAA form. Copy was given to the [employer], and the original placed in scanning. Town of Residence: [place] Resides with: Alone (with his cat) Significant Other/Family: Local (daughter Karla Brown lives locally. 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 He will not do that again. Said he can afford them, just didn't want to pay that high sparks. Per cardiology note, often not taking his meds because they are not at his girlfriends house.) Advance Directives Advance Directives: Do you have an Advance Directive: N 09/25/22 14:45 AD On File at [facility]: N 09/25/22 14:45 Date Asked 12/11/23 12/11/23 17:29 AD Date Reviewed COLST On File at [facility] COLST Date Scanned Code Status Resuscitation Status Full Code Code Status Comment: COLST form signed by Dr. Pennington 08/23/22 scanned in chart states No CPR, but trial of intubation. Copy of COLST in chart given to provider by CM. Insurance Coverage/Financial Issues Insurance: [facility] [employer] care MCR replacement Financial Issues: denies, but patient does have patient assistance at [facility] for 100% Care Team Visit Care Team Role Provider Type Taim Olivia Primary Care Provider NURSE PRACTITIONER STEVE Holliday Emergency Provider [facility] RN DIALYSIS Tod Engle MD Admit Provider [facility] STAFF PHYSICIAN Attending Provider Other: Basilia Joseph, hop farmer Discharge Potential Discharge Needs: PCP F/U Appt and Other (cardiology f/u) Anticipated Barriers to Discharge: Medical Status Patient/Family Education Needs: Review discharge instructions, discuss Ask Me Three Transportation: EMS Plan: Rajan will be transferred to [facility] for continuation of care and for a HARSH cardioversion. He is aware of the plan. CM will continue to follow through transfer. PFSH All Active Problems (Updated 12/11/23 @ 21:51 by Tod Engle MD) Depression (Chronic) Acute respiratory failure with hypoxemia (Acute) HFrEF (heart failure with reduced ejection fraction) (Acute) Atrial fibrillation with RVR (Acute) CHF (congestive heart failure) (Chronic) Atrial fibrillation (Chronic) On amiodarone therapy (Acute) Imbalance (Acute) Peripheral neuropathy (Acute) Hydropneumothorax (Acute) Trapped lung (Acute) Pleural effusion (Acute) Weakness (Acute) Hypoxemia (Acute) Alcohol use (Acute) Weakness (Acute) Caregiver stress (Acute) History of lung cancer (Acute) Supplemental oxygen dependent (Acute) Frequent falls (Acute) Advanced care planning/counseling discussion (Acute) Tachycardia (Acute) Dyspnea and respiratory abnormalities (Acute) S/P thoracotomy (Acute) Atrial flutter (Chronic) Loculated pleural effusion (Acute) ADHD (Chronic) Panic disorder (Chronic) Alcohol abuse (Chronic) Depression (Chronic) Hypertension (Chronic) Smoker (Acute) Encounter for screening colonoscopy (Acute) S/P colonoscopy (Acute ~04/28/18) Colorectal polyp detected on colonoscopy (Acute ~04/28/18) Tubular adenoma Retinal hemorrhage (Acute) Emphysema lung (Acute) COPD (chronic obstructive pulmonary disease) (Chronic) Personal history of nicotine dependence (Acute) Pleural effusion (Acute) Medical History Palliative care encounter History of depression Tobacco dependence Chronic pain of right wrist Elevated antinuclear antibody (DEJON) level Hearing loss Tubular adenoma of colon Lung cancer Skin lesion of scalp Essential tremor Anemia Fibrothorax History of elevated antinuclear antibody (DEJON) Tubular adenoma Carcinoma of left lung Long-term use of high-risk medication Erectile dysfunction Elevated PSA Thyroid nodule Pleural effusion, left Nicotine dependence, cigarettes, uncomplicated Non-small cell carcinoma of lung Squamous cell carcinoma of left lung BPH (benign prostatic hyperplasia) Elevated serum creatinine Oral pharyngeal candidiasis Squamous cell carcinoma Afib Cardioversion [facility] 11/08/2022 COVID-19 Unintentional weight loss Positive DEJON (antinuclear antibody) Stool guaiac positive IFOB Coronary artery disease Cataract Pain in right wrist Positive anaplasmosis titer Hearing loss, 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 Gutiérrez 03/2021 lung CA RH Social History Smoking/Tobacco Use Status: Former Tobacco Use Quit Date: 12/09/21 Smoking risk assessment performed?: Yes Alcohol Intake: former Drug use: Rarely Substance use type: marijuana Housing: house Do you feel safe at home: Yes Do you feel safe in your relationship?: Yes Readmission Within the Past 30 Days Yes or No: No SDOH(Care Management) Screening Will the Patient Participate in the Screening?: Yes Do you worry about having a steady place to live?: no In the past 12 months, have you had to go without electric, gas, oil or water in your home?: no Have you or anyone in your house had to go without enough food to eat?: no Has lack of transportation kept you from medical appointments or from doing things needed for daily living?: no Has anyone in your support network made you feel unsafe for any reason?: no Health Related Social Needs Health related social needs details: denies
--- NOTE | 2023-12-12 14:00 | W.PM.HP.N ---
Date of service: 12/12/23 Time of Service: 07:45 History of Present Illness History of Present Illness Chief Complaint: shortness of breath Narrative: December 12, 2023 From Admission Note Dec 11, 2023 72-year-old male with past medical history of A-fib on Xarelto and amiodarone, history of tachycardia induced cardiomyopathy, COPD, depression, who has not been taking any of his home medications for about 3 weeks presents to the emergency department complaints of shortness of breath. Patient seen his clinical education manager earlier this morning and stated the patient was back in atrial fibrillation with rapid ventricular rate and stated he had not taken any of his medication over the last 3 weeks. Additionally, he was also short of breath and was likely in congestive heart failure and was told to present to the emergency department for further evaluation. Patient denies any lightheadedness, dizziness, chest pain, nausea vomiting or diarrhea. In the emergency department the patient was noted as having a heart rate in the 150s, blood pressure with systolics in the 170s, tachypnea with respiratory rates in the low 40s, and acute hypoxic respiratory failure with a pulse ox of 77% for which the patient was placed on BiPAP 12/13. CBC was unremarkable, CMP showed an elevated total bilirubin of 1.56, proBNP was 3958, and chest x-ray did not show any acute findings. While in the emergency department the patient received IV metoprolol totaling 15 mg, and a diltiazem bolus of 20 mg IV and was placed on a diltiazem drip. Additionally, he received a total of 120 mg of IV Lasix which did result in significant urine output of about 1.5 L. Emergency room PA consulted [facility] cardiology who accepted the patient for transfer under the care of Dr. Gray, but stated patient would not be able to transfer until tomorrow morning, , 12/12/2023 due to bed capacity. They recommended this time that diltiazem drip be discontinued, patient be started on a heparin drip, and that he be n.p.o. at midnight and continue 50 mg of p.o. Lopressor every 6 hour in preparation for [facility] cardioversion upon transfer. Which time emergency room STEVE paged hospitalist for admission for patient with A-fib RVR, acute exacerbation of HFrEF likely due to tachycardia induced cardiomyopathy, and acute hypoxic respiratory failure. PFSH All Active Problems (Updated 12/11/23 @ 21:51 by Tod Engle MD) Depression (Chronic) Acute respiratory failure with hypoxemia (Acute) HFrEF (heart failure with reduced ejection fraction) (Acute) Atrial fibrillation with RVR (Acute) CHF (congestive heart failure) (Chronic) Atrial fibrillation (Chronic) On amiodarone therapy (Acute) Imbalance (Acute) Peripheral neuropathy (Acute) Hydropneumothorax (Acute) Trapped lung (Acute) Pleural effusion (Acute) Weakness (Acute) Hypoxemia (Acute) Alcohol use (Acute) Weakness (Acute) Caregiver stress (Acute) History of lung cancer (Acute) Supplemental oxygen dependent (Acute) Frequent falls (Acute) Advanced care planning/counseling discussion (Acute) Tachycardia (Acute) Dyspnea and respiratory abnormalities (Acute) S/P thoracotomy (Acute) Atrial flutter (Chronic) Loculated pleural effusion (Acute) ADHD (Chronic) Panic disorder (Chronic) Alcohol abuse (Chronic) Depression (Chronic) Hypertension (Chronic) Smoker (Acute) Encounter for screening colonoscopy (Acute) S/P colonoscopy (Acute ~04/28/18) Colorectal polyp detected on colonoscopy (Acute ~04/28/18) Tubular adenoma Retinal hemorrhage (Acute) Emphysema lung (Acute) COPD (chronic obstructive pulmonary disease) (Chronic) Personal history of nicotine dependence (Acute) Pleural effusion (Acute) Medical History Palliative care encounter History of depression Tobacco dependence Chronic pain of right wrist Elevated antinuclear antibody (DEJON) level Hearing loss Tubular adenoma of colon Lung cancer Skin lesion of scalp Essential tremor Anemia Fibrothorax History of elevated antinuclear antibody (DEJON) Tubular adenoma Carcinoma of left lung Long-term use of high-risk medication Erectile dysfunction Elevated PSA Thyroid nodule Pleural effusion, left Nicotine dependence, cigarettes, uncomplicated Non-small cell carcinoma of lung Squamous cell carcinoma of left lung BPH (benign prostatic hyperplasia) Elevated serum creatinine Oral pharyngeal candidiasis Squamous cell carcinoma Afib Cardioversion [facility] [place] 11/08/2022 COVID-19 Unintentional weight loss Positive DEJON (antinuclear antibody) Stool guaiac positive IFOB Coronary artery disease Cataract Pain in right wrist Positive anaplasmosis titer Hearing loss, 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 Gutiérrez 03/2021 lung CA RH Social History Smoking/Tobacco Use Status: Former Tobacco Use Quit Date: 12/09/21 Smoking risk assessment performed?: Yes Alcohol Intake: former Drug use: Rarely Substance use type: marijuana Housing: house Do you feel safe at home: Yes Do you feel safe in your relationship?: Yes Meds Allergies and Home Medications Allergies Allergy/AdvReac Type Severity Reaction Status Date / Time seasonal Allergy Other (See Uncoded 12/11/23 18:15 Comment) Home Medications ?Medication ?Instructions ?Recorded ?Confirmed ?Type albuterol sulfate 90 mcg/actuation 2 puff inhalation Q6H PRN 05/24/21 12/11/23 History aerosol inhaler (ProAir HFA) bupropion HCl 150 mg tablet,12 hr 150 mg PO QAM 05/24/21 12/11/23 History sustained-release tamsulosin 0.4 mg capsule 0.4 mg PO DAILY 05/24/21 12/11/23 History rivaroxaban 20 mg tablet (Xarelto) 1 tab PO DAILY 12/11/21 12/11/23 History hydroxychloroquine 200 mg tablet 200 mg PO DAILY 02/06/22 12/11/23 History acetaminophen 650 mg 1,300 mg PO DAILY 03/29/22 12/11/23 History tablet,extended release (Tylenol Arthritis Pain) calcium carbonate 600 mg-vitamin 1 tab PO DAILY 03/29/22 12/11/23 History D3 20 mcg (800 unit) tablet cholecalciferol (vitamin D3) 25 25 mcg PO DAILY 03/29/22 12/11/23 History mcg (1,000 unit) capsule albuterol sulfate 0.63 mg/3 mL 0.63 mg (3 mL) inhalation QID PRN 06/26/22 12/11/23 Rx solution for nebulization shortness of breath or wheezing #90 mL magnesium oxide 400 mg (241.3 mg 400 mg PO HS #10 tabs 08/03/22 12/11/23 Rx magnesium) tablet spironolactone 25 mg tablet 25 mg PO DAILY 08/20/22 12/11/23 History cyanocobalamin (vitamin B-12) 1,000 mcg PO DAILY 10/10/22 12/11/23 History 1,000 mcg capsule amiodarone 200 mg tablet 200 mg PO DAILY 11/15/22 12/11/23 History furosemide 40 mg tablet 40 mg PO DAILY 12/07/22 12/11/23 History metoprolol succinate 25 mg 25 mg PO DAILY 12/25/22 12/11/23 History tablet,extended release 24 hr tiotropium bromide 2.5 2 inh inhalation QAM #12 grams 02/27/23 12/11/23 Rx mcg/actuation mist for inhalation (Spiriva Respimat) Results Labs 12/12/23 05:56 12/12/23 05:56 Labs: Laboratory Results - last 24 hr 12/11/23 12/11/23 12/11/23 17:23 18:19 19:07 WBC 9.61 RBC 4.47 Hgb 14.1 Hct 43.1 MCV 96 H MCH 31.5 MCHC 32.7 RDW 14.2 H Plt Count 250 MPV 9.5 Immature Gran % 0.4 Neutrophils % 81.4 Lymphocytes % 10.1 Monocytes % 7.4 Eosinophils % 0.1 Basophils % 0.6 Nucleated RBC % 0.0 Absolute Neutrophils 7.82 H Absolute Lymphocytes 0.97 L Absolute Monocytes 0.71 Absolute Eosinophils 0.01 Absolute Basophils 0.06 APTT VBG pH 7.33 VBG pCO2 48 VBG pO2 31 VBG HCO3 25 VBG Total CO2 23 L VBG O2 Saturation 50 VBG Base Excess -1 Sodium 136 Potassium 3.9 Chloride 101 Carbon Dioxide 23.7 Anion Gap 11.3 H BUN 9 Creatinine 1.4 H Est GFR (CKD-EPI 2020) 53.07 Glucose 98 Calcium 9.5 Magnesium 1.8 Total Bilirubin 1.56 H AST 30 ALT 21 Alkaline Phosphatase 72 Troponin I 58 63 NT-Pro-B Natriuret Pep 3958 H Total Protein 8.1 Albumin 3.8 TSH 2.07 12/11/23 12/11/23 12/12/23 21:40 23:19 03:03 WBC RBC Hgb Hct MCV MCH MCHC RDW Plt Count MPV Immature Gran % Neutrophils % Lymphocytes % Monocytes % Eosinophils % Basophils % Nucleated RBC % Absolute Neutrophils Absolute Lymphocytes Absolute Monocytes Absolute Eosinophils Absolute Basophils APTT 22.6 L Cancelled 53.1 H VBG pH VBG pCO2 VBG pO2 VBG HCO3 VBG Total CO2 VBG O2 Saturation VBG Base Excess Sodium Potassium Chloride Carbon Dioxide Anion Gap BUN Creatinine Est GFR (CKD-EPI 2020) Glucose Calcium Magnesium Total Bilirubin AST ALT Alkaline Phosphatase Troponin I NT-Pro-B Natriuret Pep Total Protein Albumin TSH 12/12/23 12/12/23 05:56 09:40 WBC 12.02 H RBC 4.29 L Hgb 13.5 Hct 40.7 MCV 95 MCH 31.5 MCHC 33.2 RDW 14.1 Plt Count 240 MPV 10.0 Immature Gran % Neutrophils % Lymphocytes % Monocytes % Eosinophils % Basophils % Nucleated RBC % Absolute Neutrophils Absolute Lymphocytes Absolute Monocytes Absolute Eosinophils Absolute Basophils APTT 42.0 H VBG pH VBG pCO2 VBG pO2 VBG HCO3 VBG Total CO2 VBG O2 Saturation VBG Base Excess Sodium 139 Potassium 3.6 Chloride 102 Carbon Dioxide 24.7 Anion Gap 12.3 H BUN 13 Creatinine 1.4 H Est GFR (CKD-EPI 2020) 53.07 Glucose 117 H Calcium 9.5 Magnesium Total Bilirubin 1.38 H AST 25 ALT 17 Alkaline Phosphatase 71 Troponin I NT-Pro-B Natriuret Pep Total Protein 7.8 Albumin 3.6 TSH Last Vital Signs Temp 36.7 C 12/12/23 12:30 Pulse 149 H 12/12/23 13:18 Resp 26 H 12/12/23 13:18 BP 114/89 12/12/23 12:28 Pulse Ox 94 12/12/23 13:19
[2023-12-12] MEDS: Heparin in 0.45% NaCl 25,000 UNIT/250 ML BAG 11.5 UNIT IV (14:03)
[2023-12-12] MEDS: Furosemide 40 MG/4 ML VIAL IVP ×2 (14:27→16:05)
[2023-12-12] MEDS: Normal Saline Flush 10 ML SYR (14:28)
--- NOTE | 2023-12-12 16:13 | CHAPLAIN ---
Rajan was resting in bed when I visited. He said he isn't feeling too bad. He's waiting for a cardiac bed to open up at [facility] [place]. His girlfriend will be visiting later, after she stops at Rajan's home to take care of his cat. His daughter, Karla, is his HCA.
--- NOTE | 2023-12-12 16:30 | DSE_ITS ---
Date of service: 12/12/23 Time of Service: 07:45 DS: Diagnosis Discharge Diagnosis (1) Atrial fibrillation with RVR: Status: Acute Asessment and Plan: Continues on heparin drip For transfer to [facility] [place] for cardiology evaluation transesophageal echocardiogram and possible cardioversion Patient's heart rate has been in the 140s to 150s since admission last night. He is tolerating this well at this time. (2) HFrEF (heart failure with reduced ejection fraction): Status: Acute Asessment and Plan: Aggressive diuresis with greater than 3.5 L in last 24 hours Patient's pulmonary status has improved significantly secondary to the aggressive diuresis Matt catheter remains in place patient was recently readministered furosemide. (3) Acute respiratory failure with hypoxemia: Status: Acute Asessment and Plan: Patient 1 from BiPAP to nasal cannula now to room air He has history of COPD. No signs of pneumonia or pulmonary infection Improved status since admission and diuresis (4) COPD (chronic obstructive pulmonary disease): Status: Chronic Asessment and Plan: Stable at this time (5) Non compliance w medication regimen: Status: Acute Asessment and Plan: Patient self discontinued his therapy approximately 3 weeks ago due to cost of medications and feeling well at that time. Is reviewed with the patient in detail that he should not stop medicines electively without consultation with his physician. Discharge Plan Disposition Patient Disposition: Transfer-Acute Inpatient Care Specific Acute In Facility: [facility] Condition: Fair Discharge Details Reason For Visit: Acute exacerbation HFrEF, a-fib RVR, acute hypoxic Admit Date/Time: 12/11/23 21:41 Admit Provider: Tod Engle Attending Provider: Tod Engle Primary Care Provider: Tami Olivia Hospital Course Hospital Course: December 12, 2023 Patient received aggressive diuresis since admission. However it is greater than 3.5 L over 24 hours. Hypoxia has improved and he is removed from BiPAP support to nasal cannula support to room air. Transfer for being arranged for transfer from acute care facility to acute care facility for transesophageal echocardiogram for evaluation prior to possible cardioversion. It is reviewed with the patient on multiple occasions how important it is for him to continue his medicines. He self discontinued medications due to cost and the fact that he was feeling fine when he discontinued the medicines. No fevers chills nausea vomiting or diarrhea. His heart rate has been in the 150s since he was admitted to the hospital, he has no chest pain and appears clinically stable. He has been on Heparin drip since admission and will be transferred on heparin drip. From Admission Note Dec 11, 2023 72-year-old male with past medical history of A-fib on Xarelto and amiodarone, history of tachycardia induced cardiomyopathy, COPD, depression, who has not been taking any of his home medications for about 3 weeks presents to the emergency department complaints of shortness of breath. Patient seen his neck pinner earlier this morning and stated the patient was back in atrial fibrillation with rapid ventricular rate and stated he had not taken any of his medication over the last 3 weeks. Additionally, he was also short of breath and was likely in congestive heart failure and was told to present to the emergency department for further evaluation. Patient denies any lightheadedness, dizziness, chest pain, nausea vomiting or diarrhea. In the emergency department the patient was noted as having a heart rate in the 150s, blood pressure with systolics in the 170s, tachypnea with respiratory rates in the low 40s, and acute hypoxic respiratory failure with a pulse ox of 77% for which the patient was placed on BiPAP 12/13. CBC was unremarkable, CMP showed an elevated total bilirubin of 1.56, proBNP was 3958, and chest x-ray did not show any acute findings. While in the emergency department the patient received IV metoprolol totaling 15 mg, and a diltiazem bolus of 20 mg IV and was placed on a diltiazem drip. Additionally, he received a total of 120 mg of IV Lasix which did result in significant urine output of about 1.5 L. Emergency room PA consulted [facility] cardiology who accepted the patient for transfer under the care of Dr. Gray, but stated patient would not be able to transfer until tomorrow morning, , 12/12/2023 due to bed capacity. They recommended this time that diltiazem drip be discontinued, patient be started on a heparin drip, and that he be n.p.o. at midnight and continue 50 mg of p.o. Lopressor every 6 hour in preparation for [facility] cardioversion upon transfer. Which time emergency room PA paged hospitalist for admission for patient with A-fib RVR, acute exacerbation of HFrEF likely due to tachycardia induced cardiomyopathy, and acute hypoxic respiratory failure. Home Meds and New Rx's Prescriptions: No Action albuterol sulfate 0.63 mg/3 mL solution for nebulization 0.63 mg inhalation QID PRN (Reason: shortness of breath or wheezing) Qty: 90 12RF amiodarone 200 mg tablet 200 mg PO DAILY Spiriva Respimat 2.5 mcg/actuation mist 2 inh inhalation QAM Qty: 12 3RF calcium carbonate-vitamin D3 600 mg-20 mcg (800 unit) tablet 1 tab PO DAILY cholecalciferol (vitamin D3) 25 mcg (1,000 unit) capsule 25 mcg PO DAILY acetaminophen [Tylenol Arthritis Pain] 650 mg tablet extended release 1,300 mg PO DAILY cyanocobalamin (vitamin B-12) 1,000 mcg capsule 1,000 mcg PO DAILY metoprolol succinate 25 mg tablet extended release 24 hr 25 mg PO DAILY furosemide 40 mg tablet 40 mg PO DAILY albuterol sulfate [ProAir HFA] 90 mcg/actuation HFA aerosol inhaler 2 puff inhalation Q6H PRN bupropion HCl 150 mg tablet sustained-release 12 hr 150 mg PO QAM tamsulosin 0.4 mg capsule 0.4 mg PO DAILY hydroxychloroquine 200 mg tablet 200 mg PO DAILY spironolactone 25 mg tablet 25 mg PO DAILY magnesium oxide 400 mg (241.3 mg magnesium) Tablet 400 mg PO HS Qty: 10 0RF Xarelto 20 mg tablet 1 tab PO DAILY Discharge Instructions Activity:: bedrest Equipment/Supplies:: transfer on Heparin drip Diet:: npo Discharge Orders Discharge Orders: Discharge Order (Routine); Ordered 12/12/23 Ordered By: Jose J Chacon DS: Summary Time Spent with Patient providing and/or coordinating discharge services: Greater than 30 minutes Status at Discharge Functional status at discharge: bed bound Overall status at discharge: patient is not back to baseline Mental Status: mental status grossly normal Speech and Movement: speech and movement normal Mood: congruent mood Affect: normal affect Quality:SDOH Health Related Social Needs: Health related social needs inadequate housing Health related social needs details denies Health related social needs details: denies Exam Narrative Exam Narrative: Patient is alert and oriented x 3 and in no acute distress HEENT: Neck supple, MM pink and moist, conjunctiva non-injected, sclera non- icteric, Pupils equal and reactive to light symmetrically No thyromegaly. No carotid bruit CHEST: Bilaterally symmetrical with inspiration and expiration. No use of accessory muscles of respiration. No nasal flaring. RESP: + bibasilar rales, good air exchange bilaterraly COR: tachycardic. distant tones. ABDOMEN: Soft, non tender diffusely, normally active bowel sounds diffusely, No hepatosplenomegaly, No abdominal bruit, no masses, no tenderness on deep ab dominal palpation. G/U: deferred Rectal: deferred MUSCULOSKELETAL: Bilaterally symmetrical, no muscle belly tenderness or mass DERMIS: Skin warm and dry, no ulcers or rashes, EXTREMITIES: No cyanosis, clubbing or edema, no gross deformities of the large or small joints of the upper or lower extremities. NEUROLOGICAL: Cranial nerves intact II-XII without notable deficit, No peripheral neurosensory or motor deficits noted. LYMPH: No anterior or posterior cervical, no supraclavicular, No axillary, no epitrochlear or femoral lymphadenopathy. Psych Mental Status: mental status grossly normal Speech and Movement: speech and movement normal Mood: congruent mood Affect: normal affect DS: Data Vitals/I&O Vitals and I&O: Vital Signs Temperature 36.7 C 12/12/23 12:30 Temperature Source Temporal Artery Scan 12/12/23 12:30 Pulse 149 H 12/12/23 13:18 Pulse 150 H 12/12/23 12:28 Respiratory Rate 26 H 12/12/23 13:18 Respiratory Effort Short of Breath 12/11/23 23:42 Respiratory Depth Normal 12/11/23 23:42 Respiratory Pattern Normal 12/11/23 23:42 Blood Pressure 114/89 12/12/23 12:28 Blood Pressure Mean 96 12/12/23 12:28 Pulse Oximetry 94 12/12/23 13:19 Oxygen Delivery Method Room Air 12/12/23 13:19 Oxygen Flow Rate 0 12/12/23 13:19 Fraction of Inspired Oxygen (FIO2) 30 12/12/23 13:18 Pain Level 0 12/11/23 23:42 Comment Bipap settings 12/1312/12/23 12:30 Intake & Output 12/11/23 12/12/23 12/12/23 23:59 11:59 23:59 Intake Total 23.666 / 23.666 113.333 / 150.900 37.567 / 150.900 Output Total 1974 550 / 1100 550 / 1100 Balance -1951.334 / -1951.334 -436.667 / -949.100 -512.433 / -949.100 Weight 85.2 kg 84.4 kg Intake: IV 23.666 / 23.666 113.333 / 150.900 37.567 / 150.900 Output: Urine 1974 550 / 1100 550 / 1100 Other: Urine Color Straw Yellow Yellow Urine Appearance Clear Sediment Clear Comment matt had been leaking and uncomfortable, cath adjusted and is now patent and without discomfort. A large amount of urine leaked onto bedding and patient's gown. Voiding Methods Urinal # Voids 1 Data Completed and Pending Labs on day of discharge: Labs from last 24 hours 12/12/23 12/12/23 12/12/23 16:50 09:40 05:56 WBC 12.02 H RBC 4.29 L Hgb 13.5 Hct 40.7 MCV 95 MCH 31.5 MCHC 33.2 RDW 14.1 Plt Count 240 MPV 10.0 Immature Gran % Neutrophils % Lymphocytes % Monocytes % Eosinophils % Basophils % Nucleated RBC % Absolute Neutrophils Absolute Lymphocytes Absolute Monocytes Absolute Eosinophils Absolute Basophils APTT Pending 42.0 H VBG pH VBG pCO2 VBG pO2 VBG HCO3 VBG Total CO2 VBG O2 Saturation VBG Base Excess Sodium 139 Potassium 3.6 Chloride 102 Carbon Dioxide 24.7 Anion Gap 12.3 H BUN 13 Creatinine 1.4 H Est GFR (CKD-EPI 2020) 53.07 Glucose 117 H Calcium 9.5 Magnesium Total Bilirubin 1.38 H AST 25 ALT 17 Alkaline Phosphatase 71 Troponin I NT-Pro-B Natriuret Pep Total Protein 7.8 Albumin 3.6 TSH Amiodarone Desethylamiodarone 12/12/23 12/11/23 12/11/23 03:03 23:19 21:40 WBC RBC Hgb Hct MCV MCH MCHC RDW Plt Count MPV Immature Gran % Neutrophils % Lymphocytes % Monocytes % Eosinophils % Basophils % Nucleated RBC % Absolute Neutrophils Absolute Lymphocytes Absolute Monocytes Absolute Eosinophils Absolute Basophils APTT 53.1 H Cancelled 22.6 L VBG pH VBG pCO2 VBG pO2 VBG HCO3 VBG Total CO2 VBG O2 Saturation VBG Base Excess Sodium Potassium Chloride Carbon Dioxide Anion Gap BUN Creatinine Est GFR (CKD-EPI 2020) Glucose Calcium Magnesium Total Bilirubin AST ALT Alkaline Phosphatase Troponin I NT-Pro-B Natriuret Pep Total Protein Albumin TSH Amiodarone Desethylamiodarone 12/11/23 12/11/23 12/11/23 19:07 18:19 17:23 WBC 9.61 RBC 4.47 Hgb 14.1 Hct 43.1 MCV 96 H MCH 31.5 MCHC 32.7 RDW 14.2 H Plt Count 250 MPV 9.5 Immature Gran % 0.4 Neutrophils % 81.4 Lymphocytes % 10.1 Monocytes % 7.4 Eosinophils % 0.1 Basophils % 0.6 Nucleated RBC % 0.0 Absolute Neutrophils 7.82 H Absolute Lymphocytes 0.97 L Absolute Monocytes 0.71 Absolute Eosinophils 0.01 Absolute Basophils 0.06 APTT VBG pH 7.33 VBG pCO2 48 VBG pO2 31 VBG HCO3 25 VBG Total CO2 23 L VBG O2 Saturation 50 VBG Base Excess -1 Sodium 136 Potassium 3.9 Chloride 101 Carbon Dioxide 23.7 Anion Gap 11.3 H BUN 9 Creatinine 1.4 H Est GFR (CKD-EPI 2020) 53.07 Glucose 98 Calcium 9.5 Magnesium 1.8 Total Bilirubin 1.56 H AST 30 ALT 21 Alkaline Phosphatase 72 Troponin I 63 58 NT-Pro-B Natriuret Pep 3958 H Total Protein 8.1 Albumin 3.8 TSH 2.07 Amiodarone Pending Desethylamiodarone Pending [facility] All Active Problems (Updated 12/12/23 @ 16:32 by Jose J Chacon DO) Non compliance w medication regimen (Acute) Depression (Chronic) Acute respiratory failure with hypoxemia (Acute) HFrEF (heart failure with reduced ejection fraction) (Acute) Atrial fibrillation with RVR (Acute) CHF (congestive heart failure) (Chronic) Atrial fibrillation (Chronic) On amiodarone therapy (Acute) Imbalance (Acute) Peripheral neuropathy (Acute) Hydropneumothorax (Acute) Trapped lung (Acute) Pleural effusion (Acute) Weakness (Acute) Hypoxemia (Acute) Alcohol use (Acute) Weakness (Acute) Caregiver stress (Acute) History of lung cancer (Acute) Supplemental oxygen dependent (Acute) Frequent falls (Acute) Advanced care planning/counseling discussion (Acute) Tachycardia (Acute) Dyspnea and respiratory abnormalities (Acute) S/P thoracotomy (Acute) Atrial flutter (Chronic) Loculated pleural effusion (Acute) ADHD (Chronic) Panic disorder (Chronic) Alcohol abuse (Chronic) Depression (Chronic) Hypertension (Chronic) Smoker (Acute) Encounter for screening colonoscopy (Acute) S/P colonoscopy (Acute ~04/28/18) Colorectal polyp detected on colonoscopy (Acute ~04/28/18) Tubular adenoma Retinal hemorrhage (Acute) Emphysema lung (Acute) COPD (chronic obstructive pulmonary disease) (Chronic) Personal history of nicotine dependence (Acute) Pleural effusion (Acute) Medical History Palliative care encounter History of depression Tobacco dependence Chronic pain of right wrist Elevated antinuclear antibody (DEJON) level Hearing loss Tubular adenoma of colon Lung cancer Skin lesion of scalp Essential tremor Anemia Fibrothorax History of elevated antinuclear antibody (DEJON) Tubular adenoma Carcinoma of left lung Long-term use of high-risk medication Erectile dysfunction Elevated PSA Thyroid nodule Pleural effusion, left Nicotine dependence, cigarettes, uncomplicated Non-small cell carcinoma of lung Squamous cell carcinoma of left lung BPH (benign prostatic hyperplasia) Elevated serum creatinine Oral pharyngeal candidiasis Squamous cell carcinoma Afib Cardioversion [facility] [place] 11/08/2022 COVID-19 Unintentional weight loss Positive DEJON (antinuclear antibody) Stool guaiac positive IFOB Coronary artery disease Cataract Pain in right wrist Positive anaplasmosis titer Hearing loss, 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) Surgical History History of colonoscopy (~01/2022) History of appendectomy S/P partial lobectomy of lung [facility] [place] ARACELIYadi Gutiérrez 03/2021 lung CA RH Social History Smoking/Tobacco Use Status: Former Tobacco Use Quit Date: 12/09/21 Smoking risk assessment performed?: Yes Alcohol Intake: former Drug use: Rarely Substance use type: marijuana Housing: house Do you feel safe at home: Yes Do you feel safe in your relationship?: Yes Time Spent with Patient Time Spent with Patient: 70-84 minutes4 Time was spent: preparing to see the patient(eg.review tests), obtaining and/or reviewing separately otained hiistory, ordering medications,tests, procedures, referring, communicating with other health acute care physical therapist, indepentently interpreting results, counseling the patient, care coordination and other (compl etion of transfer forms, coordination with staff)
== END 2023-12-12 17:36 | disposition short-term general hospital (02) | DRG 308 ==
LOC: ER 22:54 → ICU 22:56
PROVIDERS: Admitting Provider Family Medicine; Emergency Provider Physician Assistant; PCP Nurse Practitioner Family; Visit Provider Family Medicine
DX: I48.91 Unspecified atrial fibrillation (principal); I50.23 Acute on chronic systolic (congestive) heart failure; J96.01 Acute respiratory failure with hypoxia; I11.0 Hypertensive heart disease with heart failure; J44.9 Chronic obstructive pulmonary disease, unspecified; Z91.A48 Caregiver's other noncompliance with patient's medication regimen for other reason; Z79.01 Long term (current) use of anticoagulants; F32.A Depression, unspecified; I42.8 Other cardiomyopathies; Z79.899 Other long term (current) drug therapy; G62.9 Polyneuropathy, unspecified; R53.1 Weakness; Z99.81 Dependence on supplemental oxygen; Z85.118 Personal history of other malignant neoplasm of bronchus and lung; R29.6 Repeated falls; F10.10 Alcohol abuse, uncomplicated; Z90.2 Acquired absence of lung [part of]; Z87.891 Personal history of nicotine dependence
CPT/HCPCS: 00123; 36415; 80053; 80151; 82805; 85027; 93005; 94640; 96365; 96366; 96367; 96375; 96376; 99291; 71045; 83735; 83880; 84443; 84484; 85025; 85730; 93010; 94660; 99223; 99239; J1644; J1940; J7613; J7614

== ENCOUNTER 2023-12-24 02:34 | Outpatient (CLI) | payer MEDICARE, SELFPAY ==
[2023-12-24 11:19] LABS: ALT 24 U/L (16-63); AST 27 U/L (15-37); Albumin 3.5 g/dL (3.4-5.0); Alkaline Phosphatase 68 U/L (46-116); Anion Gap 5.7 mmol/L (3-11); BUN 34 mg/dL (7-18); Bilirubin, Total 0.96 mg/dL (0.2-1.0); CO2 32.3 mmol/L (21.0-32.0); CREATININE 1.6 mg/dL (0.70-1.30); Calcium 9.9 mg/dL (8.5-10.1); Chloride 102 mmol/L (98-107); Estimated GFR 45.21 (mL/min/1.73m2); Glucose 101 mg/dL (74-106); Potassium 4.3 mmol/L (3.5-5.1); Sodium 140 mmol/L (136-145); TSH (W/Ref FT4) 3.22 uIU/mL (0.36-3.74); Total Protein 8.1 g/dL (6.4-8.2)
== END 2023-12-24 02:35 | disposition home or self-care (01) ==
LOC: LBO 02:34
PROVIDERS: Internal Medicine Cardiovascular Disease; PCP Nurse Practitioner Family; Visit Provider Nurse Practitioner Family
DX: Z79.899 Other long term (current) drug therapy (principal); I10 Essential (primary) hypertension; I48.92 Unspecified atrial flutter; R00.0 Tachycardia, unspecified
CPT/HCPCS: 36415; 80053; 84443

== ENCOUNTER 2023-12-26 15:55 | Outpatient (CLI) | payer MEDICARE, SELFPAY ==
--- OUTSIDE RECORDS SUMMARY | 2023-12-26 15:57 | XMS_ITS | Encounter Summary ---
Author Organization [facility] [place] [address] Care Team Providers Care Director Software Development Name Role Phone Tami Olivia Primary Care Provider [phone] Reason for Visit * Auth/Cert (Routine) Specialty Diagnoses / Procedures Referred By Bert gautam Referred To Contact Diagnoses Atrial flutter Atrial fibrillation Procedures EMERGENCY IPI Tiera Goldsmith MD [facility] [address] [facility] Referral ID Status Reason Start Date Expiration Date Visits Re quested Visits Authorized [id number] 1 1 Encounter Details Date Type Department Care Team (Late st Contact Info) Description 12/13/2023 10:46 AM EDT Anesthesia Event [place] [address] Joseph Boogie MD [facility] [place] [address] Lance Graham CRNA [facility] [place] [address] Anesthesia Record Procedure Summary Procedure Name Responsible Anesthesiologist Anesthesia Start Time Anesthesia Stop Time TRANSESOPHAGEAL ECHOCARDIOGRAM (WRVU 2.3) Joseph Boogie MD 12/13/23 1046 12/13/23 1132 Events Date Time Event Comment 12/13/2023 1046 AN Verify 1046 Start 1046 An Start Data 1050 Anesthesia Ready 1100 1127 an stop data 1132 Recovery or ICU Handoff Lucy ent care was transferred to the destination unit staff after review of the patient's medical history, current anesthetic/surgical status and plan, according to the Provider Handoff Checklist. 1132 Stop Meds Name Total propofoL 50 mg propofol INF 151.69 mg PHENYLephrine INF 1,770 mcg ePHEDrine 10 mg sodium chloride 0.9% 100 mL * Agents Name O2 Air N2O O2 Auxiliary Flowmeter 1 * Blood No blood administrations on file. 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) ; median cubital vein (antecubital fossa), right; LDA not present upon assessment; 12/14/23; 0958 12/12/232019 by Clifton Francois RN 12/14/23 0958 by Sravanthi Tran RN 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; 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) ; median cubital vein (antecubital fossa), left; LDA not present upon assessment; 12/14/23; 0958 12/12/232041 by Clifton Francois RN 12/14/23 0958 by Sravanthi Tran RN documented in this encounter Social History Tobacco Use Types Packs/Day Years Used Date Smoking Tobacco: Former Cigarettes Smokeless Tobacco: Never Comments:1 ppd for the past year Alcohol Use Standard Drinks/Week Comments Not Currently 0 (1 standard drink = 0.6 oz pur e alcohol) Housing Stability Vital Sign Answer Sin e Recorded In the last 12 months, was t here a time when you were not able to pay the mortgage or rent on time? Not on file 12/13/2023 In the past 12 months, how m any times have you moved where you were living? 0 12/13/2023 [facility] were you homeless or living in a halfway (including now)? No 12/13/2023 DH IPV Inpatient Questions Answer Date Recorded Does Anyone Try to Keep You From Having Contact with Others or Doing Things Outside Your Home? no 12/12/2023 Feels Threatened by Someone no 05/2023 Feels Unsafe at Home or Work/School no 12/12/2023 Physical Signs of Abuse Present no 12/12/2023 Sex and Gender Information Value Date Recorded Sex Assigned at Not on file Gender Identity Not on file Sexual Orientation Not on file documented as of this encounter OR Notes * Anesthesia Postprocedure Evaluation - Joseph Boogie MD - 12/13/2023 11:44 AM EDT Department of Anesthesiology Post-procedure Note Patient: Rajan Marquez Procedure Summary Date: 12/13/23 Room / Location: [facility] / [facility] Anesthesia Start: 104 Anesthesia Stop: 1126 Procedures: TRANSESOPHAGEAL ECHOCARDIOGRAM (WRVU 2.3) CARDIOVERSION-ELECTIVE (WRVU 2) Diagnosis: (typical aflutter) Surgeons: Srini Null MD Responsible Provider: Joseph Boogie MD Anesthesia Type: MAC ASA Status: 3 All Anesthesia Providers: Anesthesiologist: Joseph Boogie MD ACCOUNTANT COST: Lance Graham CRNA Vitals Value Taken Time BP 98/66 12/13/23 1140 Temp 36.1 ??C (97 ??F) 12/13/23 1128 Pulse 140 12/13/23 1143 Resp 27 12/13/23 1143 SpO2 94 % 12/13/23 1143 Pain Level Vitals shown include unfiled device data. Patient [facility] Level of Consciousness: Conscious but Sleepy Pain Management: Pain Being Addressed PONV: None Cardiovascular Status: At Baseline Respiratory Status: At Baseline Postoperative Fluid Status: Intravascular EUvolemia Possible Anesthetic Complications: NONE apparent at time of evaluation Final Primary Anesthesia Type: MAC (The anesthetic type performed was the same as planned.) Comments: * Anesthesia Preprocedure Evaluation - Joseph Boogie MD - 12/13/2023 10:28 AM EDT Pre-Anesthesia Evaluation for: Rajan Marquez a 72 y.o. male. Procedure(s): TRANSESOPHAGEAL ECHOCARDIOGRAM (WRVU 2.3) CARDIOVERSION-ELECTIVE (WRVU 2) Patient Active Problem List Diagnosis Date Noted ??? Atherosclerosis of coronary artery 12/12/2023 ??? Caregiver stress 12/12/2023 ??? Cataract 12/12/2023 ??? Colorectal polyp detected on colonoscopy 12/12/2023 ??? Dyspnea and respiratory abnormalities 12/12/2023 ??? Advanced care planning/counseling discussion 12/12/2023 ??? Palliative care encounter 12/12/2023 ??? Hearing loss, bilateral 12/12/2023 ??? History of appendectomy 12/12/2023 ??? History of lung cancer 12/12/2023 ??? Hypertension 12/12/2023 ??? Panic disorder 12/12/2023 ??? Trapped lung 12/12/2023 ??? Emphysema lung 12/12/2023 ??? Supplemental oxygen dependent 12/12/2023 ??? S/P thoracotomy 12/12/2023 ??? S/P colonoscopy 12/12/2023 ??? Stool guaiac positive 12/12/2023 ??? 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 Retinal hemorrhage 12/12/2023 ??? Positive DEJON (antinuclear antibody) 12/12/2023 ??? Personal history of nicotine dependence 12/12/2023 ??? Hypoxemia 12/12/2023 ??? *Atrial flutter 02/17/2022 ??? Pleural effusion 02/08/2022 ??? ADHD 11/05/2019 ??? COPD (chronic obstructive pulmonary disease) 11/05/2019 ??? Depression 11/05/2019 ??? Palpitations 11/05/2019 ??? Tobacco abuse 11/05/2019 ??? Unspecified osteoarthritis, unspecified site 11/05/2019 Past Medical History: Diagnosis Date ??? BPH (benign prostatic hyperplasia) ??? COPD (chronic obstructive pulmonary disease) ??? Coronary artery disease ??? 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 GERD (gastroesophageal reflux disease) ??? Hypertension ??? Lupus anticoagulant positive 11/05/2019 ??? Mass of upper lobe of left lung 02/27/2021 ??? Synovitis Past Surgical History: Procedure Laterality Date ??? APPENDECTOMY ??? IR THORACENTESIS LEFT 11/08/2021 IR Thoracentesis Left 11/08/2021 Forauer, Ramírez Ziegler MD [facility] ??? PRO BRONCHOSCOPY, DIAGNOSTIC N/A 03/29/2021 BRONCHOSCOPY, DIAGNOSTIC (WRVU 2.78) performed by Gilmer Gutiérrez MD at [facility] OR ??? PRO BRONCHOSCOPY, DIAGNOSTIC N/A 02/08/2022 BRONCHOSCOPY, DIAGNOSTIC (WRVU 2.78) performed by Gilmer Gutiérrez MD at [facility] OR ??? PRO BRONCHOSCOPY, DIAGNOSTIC N/A 05/18/2022 BRONCHOSCOPY, DIAGNOSTIC (WRVU 2.53) performed by Gilmer Gutiérrez MD at [facility] OR ??? PRO CARDIOVERSION ELECTIVE ARRHYTHMIA EXTERNAL N/A 11/08/2022 CARDIOVERSION-ELECTIVE (WRVU 2) performed by Sekou Canales MD at [facility] OR ??? PRO DECORTICATION, PULMONARY, TOTAL Left 05/18/2022 @THORACOTOMY,DECORTICATION, PULMONARY, TOTAL (WRVU 26.65) performed by Gilmer Gutiérrez MD [facility] OR ? ? PRO INJECTION ANES AGENT &/ STEROID INTERCOSTAL NERVE SINGLE LEVEL Left 03/29/2021 NERVE BLOCK, INTERCOSTAL NERVE (WRVU 1.18) performed by Gilmer Gutiérrez MD at [facility] OR ??? PRO RECONSTRUCT INJURED CHEST Left 05/18/2022 @MAJOR RECONSTRUCTION, CHEST WALL (WRVU 22.51) performed by Gilmer Gutiérrez MD at [facility] OR ??? PRO THORACOSCOPY SURG LOBECTOMY Left 03/29/2021 @THORACOSCOPY,SURGICAL,W\LOBECTOMY,TOTAL OR SEGMENTAL (WRVU 24.64) performed by Johana Gutiérrez MD at [facility] OR ??? PRO THORACOSCOPY WITH BIOPSY OF PLEURA Left 02/08/2022 THORACOSCOPY; WITH BIOPSY(IES) OF PLEURA (WRVU 4.58) [facility] ??? PRO THORACOSCOPY WITH MEDIASTINAL AND REGIONAL LYMPHADENECTOMY 03/29/2021 @THORACOSCOPY, SURG; W/MEDIASTINAL& REGIONAL LYMPHADENECTOMY (WRVU 4.12) performed by Glimer Gutiérrez MD at [facility] OR ??? PRO THORACOSCOPY WITH WEDGE RESECTION AND ANATOMIC LUNG RESECTN Left 03/29/2021 @THORACOSCOPY, SURG; W/DX WEDGE RESC W/ANATOMIC LUNG RESC (WRVU 3) performed by Johana Gutiérrez MD at [facility] Social History Tobacco Use ??? Smoking status: Former Types: Cigarettes ??? Smokeless tobacco: Never ??? [...] Physical Exam: Preprocedure Vitals Current as of 12/13/23 1028 BP: 118/74 Pulse: 129 Resp: 17 SpO2: 94 Temp: 36.7 ??C (98 ??F) Height: 172.7 cm (5' 8) (12/12/23) Weight: 80.9 kg (178 lb 6.4 oz) (12/13/23) BMI: 27.13 IBW: 68.4 kg (150 lb 12.1 oz) Last edited 12/13/23 0733 by MM Airway Assessment: Mallampati: II TM distance: <3 FB Neck ROM: limited Cardiovascular Assessment: Rhythm: regular Rate: normal Pulmonary Assessment: breath sounds clear to auscultation Dental Assessment: (+) upper dentures and lower dentures Misc Assessment: Last Filed Perioperative Cognitive Screening Value Time User 4AT TOTAL Score: 1 05/22/2022 9:41 Sandro Cash RN Anesthesia Plan: ASA 3 MAC, with a(n) intravenous induction Patient is a 72-year-old male with history of coronary artery disease, COPD and GERD who is now scheduled for HARSH and cardioversion under anesthesia. He has a history of a flutter. He is n.p.o. sincehas not take any meds this morning denies any recent URI. Consent was obtained risk explained. Region - Other Informed Consent: Anesthetic plan and risks discussed with patient. Plan discussed with ACCOUNTANT COST and attending. Anesthesia Screening documented in this encounter Plan of Treatment Upcoming Encounters Date Type Department Care Team (Late st Contact Info) Description 01/20/2024 10:40 AM EST Office Visit Cardiology at [address] [address] Chrissy Zepeda APRN [facility] [place] [address] Scheduled Procedures Name Priority Associated Diagnoses Date/Ti me CARDIOVERSION-ELECTIVE (WRVU 2) atrial flutter ELECTROPHYSIOLOGY PROCEDURE Persistent atrial fibrillation CARDIOVERSION-ELECTIVE (WRVU 2) persistent atrial fibrillation TRANSESOPHAGEAL ECHOCARDIOGR AM (WRVU 2.3) persistent atrial fibrillation documented as of this encounter Visit Diagnoses Not on filedocumented in this encounter Administered Medications Inactive Administered Medications - up to 3 most recent administrations Medication Order MAR Action Action Date Dose Rate Site ePHEDrine sulfate (5 mg/mL) multi-dose injection Intravenous, PRN, Starting on Sat12/13/23 at 1050, Until Sat12/13/23 at 1127, Anesthesia Intra-op, Routine Given 12/13/2023 10:50 AM EDT 10 mg PHENYLephrine (Maninder-Synephrine) (80 mcg/mL) in sodium chloride 0.9% 250 mL infusion Intravenous, CONTINUOUS PRN, Starting on Sat12/13/23 at 1051, Until Sat12/13/23 at 1127, Anesthesia Intra-op, Routine Rate/Dose Change 12/13/2023 11:18 AM EDT 30 mcg/min 22.5 mL/hr New Bag 12/13/2023 10:51 AM EDT 60 mcg/min 45 mL/hr propofoL (Diprivan) (10 mg/mL) infusion Intravenous, CONTINUOUS PRN, Starting on Sat12/13/23 at 1052, Until Sat12/13/23 at 1127, Anesthesia Intra-op, Routine New Bag 12/13/2023 10:52 AM EDT 75 mcg/kg/min 36.405 mL/hr propofoL (Diprivan) 10 mg/mL bolus injection (Anesthesia) Intravenous, PRN, Starting on Sat12/13/23 at 1052, Until Sat12/13/23 at 1127, Anesthesia Intra-op Given 12/13/2023 10:57 AM EDT 10 mg Given 12/13/2023 10:55 AM EDT 10 mg Given 12/13/2023 10:52 AM EDT 30 mg sodium chloride 0.9% infusion Intravenous, CONTINUOUS PRN, Starting on Sat12/13/23 at 1046, Until Sat12/13/23 at 1127, Anesthesia Intra-op New Bag 12/13/2023 10:46 AM EDT documented in this encounter Care Teams Director Software Development Relationship Specialty Start Date End Date Tami Olivia [address] [place] [address] PCP - General Family Medicine 12/30/20 documented as of this encounter
--- OUTSIDE RECORDS SUMMARY | 2023-12-26 15:57 | XMS_ITS | Encounter Summary ---
Author Organization [facility] Address [facility] [place] [address] Care Team Providers Care Production Support Analyst Name Role Phone Tami Olivia Primary Care Provider [phone] Encounter Details Date Type Department Care Team (Late st Contact Info) Description 12/12/2022 Orders Only Cardiology at [address] [address] Sekou Canales MD [facility] [place] [address] Typical atrial flutter; Nonischemic cardiomyopathy [...] 10:40 AM EST Office Visit Cardiology at [address] [address] Chrissy Zepeda APRN [facility] [place] [address] Scheduled Procedures Name Priority Associated Diagnoses Date/Ti me CARDIOVERSION-ELECTIVE (WRVU 2) atrial flutter ELECTROPHYSIOLOGY PROCEDURE Persistent atrial fibrillation CARDIOVERSION-ELECTIVE (WRVU 2) persistent atrial fibrillation TRANSESOPHAGEAL ECHOCARDIOGR AM (WRVU 2.3) persistent atrial fibrillation documented as of this encounter Visit Diagnoses Diagnosis Typical atrial flutter Atrial flutter Nonischemic cardiomyopathy Other primary cardiomyopathies documented in this encounter Care Teams Production Support Analyst Relationship Specialty Start Date End Date Tami Olivia [address] [place] [address] PCP - General Family Medicine 12/30/20 documented as of this encounter
--- OUTSIDE RECORDS SUMMARY | 2023-12-26 15:57 | XMS_ITS | Encounter Summary ---
Author Organization [facility] Address [facility] [place] [address] Care Team Providers Care Telemetry Monitor Name Role Phone SudhakarJacksonTami Primary Care Provider [phone] Reason for Referral * Consultation (Routine) - Authorized Specialty Diagnoses / Procedures Referred By Bert gautam Referred To Contact Cardiology Diagnoses Congestive heart failure, unspecified HF chronicity, unspecified heart failure type Layo Starr MD [facility] [place] [address] [facility] [place] [address] Referral ID Status Reason Start Date Expiration Date Visits Requested Visits Authorized [id number] Authorized Consult, Test & Treat 12/16/2023 12/15/2024 36 36 * Diagnostic Test (Routine) - Pending Review Specialty Diagnoses / Procedures Referred By Bert gautam Referred To Contact Cardiology Diagnoses Typical atrial flutter Procedures Trans Echo (HARSH) with Cardioversion Layo Starr MD [facility] [place] [address] [facility] [place] [address] Referral ID Status Reason Start Date Expiration Date Visits Requested Visits Authorized [id number] Pending Review Specialty Service Requested 12/16/2023 12/15/2024 1 1 Reason for Visit * Auth/Cert (Routine) Specialty Diagnoses / Procedures Referred By Contac t Referred To Contact Diagnoses Atrial flutter Atrial fibrillation Procedures EMERGENCY IPI Tiera Goldsmith MD [facility] [place] [address] [facility] Referral ID Status Reason Start Date Expiration Date Visits Re quested Visits Authorized [id number] 1 1 Encounter Details Date Type Department Care Team (Late st Contact Info) Description 12/12/2023 6:10 PM EDT - 12/16/2023 2:32 PM EDT Hospital Encounter Heart and Vascular Unit Level [address] [place] [id number] Tiera Goldsmith MD [facility] [place] [address] Layo Starr MD [facility] [place] [address] Typical atrial flutter; Congestive heart failure, unspecified HF chronicity, unspecified heart failure type Discharge Disposition: Home Social History Tobacco [...] any time in the past 12 m [facility], were you homeless or living in a senior care (including now)? No 12/13/2023 DH IPV Inpatient [...] Sign Reading Time Taken Comments Blood Pressure 120/77 12/16/2023 11:33 AM EDT Pulse 83 12/16/2023 11:33 AM EDT Temperature 36.7 ??C (98.1 ??F) 12/16/2023 1 1:33 AM EDT Respiratory Rate 16 12/16/2023 11:3 3 AM EDT Oxygen Saturation 97% 12/16/2023 11: 33 AM EDT Inhaled Oxygen Concentration - - Weight 81.6 kg (179 lb 12.8 oz) 12/16/2023 6:37 AM EDT Height 172.7 cm (5' 8) 12/12/2023 6:15 PM EDT Body Mass Index 27.34 12/12/2023 6:15 PM EDT documented in this encounter Discharge Summaries * Layo Starr MD - 12/16/2023 1:38 PM EDT Images from the original note were not included. Discharge Summary Patient Name: Rajan Faulkner Patient Age: 72 y.o. Language: Slovenian Admit date: 12/12/2023 Discharge date and time: 12/16/2023 1:41 PM Attending Physician: Layo Starr MD Discharge Physician: Layo Starr MD Follow-up Recommendations for Providers: Patient presented with atrial fibrillation with RVR, status post HARSH-which showed heavy smoke in the left atrial appendage concerning for CARROLL thrombus, no cardioversion was performed. 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 Patient is being discharged on metoprolol to tartrate 100 mg twice daily digoxin 250 mcg daily. Needs closer monitor digoxin levels due to drug to drug interaction with Plaquenil. Dig level ordered to be checked in a week. Patient will need HARSH and likely cardioversion if resolution of CARROLL thrombus in about 4 weeks. HARSH with cardioversion order has been placed upon discharge. Patient was diagnosed with systolic heart failure exacerbation, discharging on Lasix milligrams daily, will need dose titration daily. Patient's dry weight prior to discharge was 81.6 kg. Suspecting likely nonischemic cardiomyopathy, will need repeat 2D echocardiogram in about 3 months,started on GDMT with losartan 25 mg daily, spironolactone 25 mg daily, needs optimization of GDMT as outpatient. Can metoprolol tartrate to succinate results as outpatient are under control. Patient had issues with medication compliance, part of it was affordability, case management was consulted in-house to help with this medications. PCP to follow-up on that. Patient did have mild acute kidney injury on presentation which I suspect is secondary to diuresis,prior to discharge, will need close outpatient follow-up/BMP. Inpatient Provider Contact Information: Layo Starr MD Pager #[phone] Discharge Diagnoses (Hospital Problems) and Secondary Diagnoses (Chronic Problems): Active Hospital Problems Diagnosis Atrial flutter Resolved Hospital Problems No resolved problems to display. 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 Hospital Course: # Atrial flutter/atrial fibrillation in RVR-heart rate is improving # Left atrial appendage thrombus Patient was a transfer from outside hospital, noted his initial heart rates to be in 150s, was not atrial flutter with 2 is to 1 AV block. He was initially started on Cardizem drip, given low EF, Cardizem drip was discontinued and was started on beta-estefania. Patient was supposed to be on metoprolol, amiodarone and Xarelto outpatient however patient stoppedtaking his medications at least for the last 6 months, noted that cost was an issue, case management was consulted to help with patient's medications upon discharge. Held adding antiarrhythmic agents at this time due to risk of pharmacologic cardioversion and CVA. Started the patient on metoprolol tartrate 50 mg every 6 hours, 12/13/2023, switched to 100 mg twicedaily, 12/15/2023 Also started the patient on digoxin loading dose, noted that patient is on Plaquenil that could interact with digoxin, started maintenance dose at 250 mcg daily, 12/14/2023. Digoxin level of 1.0 priorto discharge. Ordered HARSH cardioversion, however noted that there was heavy smoke in the left atrial appendage, was unable to rule out thrombus and hence cardioversion was not performed. [id number],, started on Lovenox 1 mg/kg body weight twice daily, 12/13/2023. Transitioned to Xarelto 15 mg BID for 21 days followed by 20 mg nightly. Discussed the case with EP and general cardiology, 12/13/2023-recommending repeat HARSH in about 3 to 4 weeks to evaluate for resolution of CARROLL thrombus and cardioversion # Acute systolic heart failure exacerbation-likely triggered by atrial fibrillation # Cardiomyopathy, tachycardia related cardiomyopathy, EF of 29% # Acute hypoxic respiratory failure Patient was diuresed with IV outside hospital, on clinical examination on day 2, patient is euvolemic. Was initially on IV diuresis, transition to Lasix 40 mg daily upon discharge. Discussed with the patient to take extra dose of 40 mg of Lasix if more than 2 pounds weight gain 24 to 48 hours versus 5pounds in 5 days. 2D echocardiogram, 12/13/2023-shows LVEF of 29%, global hypokinesis with regional variation. RV systolic function is mildly decreased, mild to moderate MR. can consider transitioning metoprolol to succinate as outpatient. No prior ischemic evaluation, discussed with cardiology about ischemic workup, given this is likelytachycardia induced cardiomyopathy, recommending to hold off on ischemic evaluation at this time, repeat 2D echocardiogram in about 3 months and needs reevaluated for the need of ischemic workup. Started on losartan 25 mg daily and spironolactone 25 mg daily in-house, patient tolerated well, tocontinue the same upon discharge, needs optimization of GDMT as outpatient. LDL of 71. TSH of 0.85. # Hypokalemia # Likely acute kidney injury # Hypomagnesemia Patient's baseline creatinine about a year ago was around 0.9, creatinine on presentation 1.58, creatinine prior to presentation 1.16. Needs close outpatient follow-up Patient seen and evaluated prior to discharge at bedside. No acute events overnight, patient deniesany chest pain, shortness of breath, lightheadedness, dizziness, nausea or vomiting. Has been tolerating p.o. patient's heart rates have ranging 60s to 80s this a.m. Continues to be in A-fib/flutter.Is hemodynamically stable for discharge Physical examination General-alert and oriented x 3, not in acute respiratory distress HEENT-atraumatic normocephalic, pupils bilaterally equal and reactive Heart-S1-S2 present, irregular in rate and rhythm, no murmurs gallops or rubs Respiratory-bilateral breath sounds normal, no rhonchi or wheeze Abdomen- soft, non tender, + BS Neuro- No focal neurological deficits Extremities- B/L Pulses 2+, no edema Skin- normal Functional and Cognitive Status: good Important Studies and Lab Data: Labs: Lab Results Component Value Date WBC 9.96 (H) 12/16/2023 WBC 6.7 05/24/2022 HGB 14.7 12/16/2023 HGB 8.1 (L) 05/24/2022 HCT 43.2 12/16/2023 HCT 25.8 (L) 05/24/2022 PLATELET 241 12/16/2023 PLATELET 262 05/24/2022 Recent Labs 12/12/232040 INR 1.2 Lab Results Component Value Date NA 137 12/16/2023 NA 138 11/08/2022 K 3.8 12/16/2023 K 4.5 11/08/2022 CL 100 12/16/2023 CL 101 11/08/2022 CO2 25 12/16/2023 CO2 25 11/08/2022 BUN 25 (H) 12/16/2023 BUN 25 (H) 11/08/2022 CREATININE 1.18 12/16/2023 CREATININE 1.58 (H) 11/08/2022 Recent Labs 12/12/232040 TSH 0.85 No results for input(s): HA1C in the last 7068 hours. No results for input(s): CK, TROPONINTHS in the last 168 hours. Lab Results Component Value Date CHLPL 141 12/13/2023 HDL 54 12/13/2023 TRIG 83 12/13/2023 LDLCHOL 71 12/13/2023 Studies: Stress Testin02/13/2021 IMPRESSION Normal perfusion imaging. No ischemia or scar. Left ventricular function is normal. Echocardiogram: 12/13/2023 Interpretation Summary Left ventricle is of normal size. Wall thickness is mildly increased. The left ventricular ejection fraction is 29% by Braun's biplane. There is global hypokinesis with regional variation. The right ventricle is probably normal in size. Right ventricular systolic function is mildly decreased. There is mild to moderate mitral regurgitation. EKG: Atrial flutter with 2 is to 1 AV block, rightward axis, LVH, nonspecific T wave abnormalities. Telemetry: In atrial fibrillation however rates have significantly improved, currently ranging between 80s to 90s, intermittently/occasionally in 120-140s. Imaging: No results found for this visit on 12/12/23 (from the past 24 hour(s)). 2D echocardiogram, 12/13/2023, interpretation Summary Left ventricle is of normal size. Wall thickness is mildly increased. The left ventricular ejection fraction is 29% by Braun's biplane. There is global hypokinesis with regional variation. The right ventricle is probably normal in size. Right ventricular systolic function is mildly decreased. There is mild to moderate mitral regurgitation. Pending Studies and Lab Data: none Discharge Conditions/Prognosis: good Discharge to: home Updated Allergies/ADRs: Allergies Allergen Reactions Cat Dander Runny eyes and nose Dog Dander Runny eyes and nose Immunizations Given this Hospitalization: There is no immunization history on file for this patient. Discharge Medications: Your Medications New Medications Dose Details albuteroL 90 mcg/actuation inhaler (HFA) Inhale 2 puffs into the lungs every 6 hours as needed for Wheezing. Use with Spacer Replaces: Proair Digihaler 90 mcg/actuation inhaler (DPI with sensor) 2 puff Quantity: 2 each Refills: 0 digoxin 125 mcg (0.125 mg) tablet Commonly known as: Lanoxin Take 2 tablets by mouth daily. 250 mcg Quantity: 90 tablet Refills: 0 furosemide 40 mg tablet Commonly known as: Lasix Take 1 tablet by mouth daily. 40 mg Quantity: 90 tablet Refills: 0 losartan 25 mg tablet Commonly known as: Cozaar Take 1 tablet by mouth daily. 25 mg Quantity: 90 tablet Refills: 0 metoprolol tartrate 100 mg tablet Commonly known as: Lopressor Take 1 tablet by mouth 2 times daily. 100 mg Quantity: 180 tablet Refills: 0 spironolactone 25 mg tablet Commonly known as: Aldactone Take 1 tablet by mouth daily. 25 mg Quantity: 90 tablet Refills: 0 Continued medications with new dosing Dose Details * rivaroxaban 15 mg tablet Commonly known as: Xarelto Take 1 tablet by mouth 2 times daily for 21 days. What changed: when to take this 15 mg Quantity: 42 tablet Refills: 0 * rivaroxaban 20 mg tablet Commonly known as: Xarelto Take 1 tablet by mouth nightly. Start taking on: January 07, 2024 What changed: You were already taking a medication with the same name, and this prescription was added. Make sure you understand how and when to take each. 20 mg Quantity: 90 tablet Refills: 3 Spiriva Respimat 2.5 mcg/actuation inhaler Inhale 1 puff into the lungs daily. Generic drug: tiotropium What changed: how much to take how to take this when to take this 1 puff Quantity: 2 each Refills: 0 * This list has 2 medication(s) that are the same as other medications prescribed for you. Read thedirections carefully, and ask your doctor or other care provider to review them with you. Continued medications, unchanged Dose Details cholecalciferoL 1,000 unit tablet Commonly known as: Vitamin D3 Take 1 tablet by mouth daily. 1 tablet Refills: 0 cyanocobalamin (Vitamin B-12) 1,000 mcg tablet Commonly known as: Vitamin B-12 Take 1,000 mcg by mouth daily. 1,000 mcg Refills: 0 hydrOXYchloroQUINE 200 mg tablet Commonly known as: Plaquenil Take 200 mg by mouth Daily. 200 mg Refills: 0 tamsulosin 0.4 mg capsule Commonly known as: Flomax Take 0.4 mg by mouth daily. 0.4 mg Refills: 0 STOPPED Medications acetaminophen 500 mg tablet Commonly known as: Tylenol AMIOdarone 200 mg tablet Commonly known as: Pacerone calcium carbonate-vitamin D3 600 mg-20 mcg (800 unit) Tablet metoprolol succinate XL 25 mg ER 24 hr tablet Commonly known as: Toprol-XL Proair Digihaler 90 mcg/actuation inhaler (DPI with sensor) Generic drug: albuterol sulfate Replaced by: albuteroL 90 mcg/actuation inhaler (HFA) sildenafiL 50 mg tablet Commonly known as: Viagra UNABLE TO FIND WELLBUTRIN ORAL Smoking Status at Discharge: Social History Tobacco Use Smoking Status Former Types: Cigarettes Smokeless Tobacco Never Tobacco Comments 1 ppd for the past year Instructions Given to Patient at Discharge: Patient Instructions Hospital course You were admitted to [facility] for elevated heart rate and shortness of breath. You were diagnosed with congestive heart failure and atrial fibrillation. Looks like you are not taking your medications like to you should for the last few months now, which is the the reason for your presentation. We wanted to shock your heart to get to normal heart rhythm. you went for a procedure called transesophageal echocardiogram, we apparently saw a possibility of blood clot in one of the small chambers of the heart called left atrial appendage. Hence the procedure was aborted andwe did not show shock your heart as this could have caused stroke. Cardiology team was consulted, re commended against any antiarrhythmic drugs or cardioversion at this time. You were started on a medication called digoxin and your heart rates have been doing well, you will continue to take that medication. Also you were started on Xarelto, you will be taking 15 mg twice a day for 21 days followedby 20 mg nightly. You did have ultrasound of your heart which shows decreased pumping function of your heart about, about 30% which we think is likely related to atrial fibrillation. Will need to take your medications as prescribed and will need to follow-up with cardiology as outpatient in about 3to 4 weeks. We will likely schedule you for a repeat procedure resolution of the blood clot and cons ider shocking/cardioversion at that time. You will also get a repeat ultrasound of the heart in about 3 months to look for improvement in heart function. You were put on a diuretic, Lasix 40 mg daily, you will continue to take the diuretics as needed. If you notice any swelling in your legs or weight gain of 2 pounds overnight or 5 pounds in 5 days, you will take extra dose of Lasix 40 mg x 1 andcall your doctor about it. Call your doctor if: Chest pain, palpitations, dyspnea, pain or swelling in legs occurs, or for weight gain of 2 pounds overnight or 5 pounds in 5 days. If you have non-emergent questions, prior to your follow-up visit call: Saturday-Saturday between the hours of 8AM-5PM please call the Cardiology Clinic [phone] to speak with a nurse. All other hours please call the Hospital Commissioning Manager [phone] and ask to speak to the cardiovascular hospitalist on-call. For any emergent questions, please call 911 or visit your nearest emergency department/urgent care center Return to work: One week Driving: No driving for 48 hours after cath Follow up Appointments: Doctor Where Phone # Date Time PCP Tami Triana [address] [place] [address] Dec, , 11.30 PM Corrections Unit Supervisor [facility] [phone] Jan 19Saturday 10.40 AM Diet-2 g salt, 2 L/day fluid restriction Activity-as tolerated. General Instructions None Future Appointments and Orders Future Appointments and Orders Future Appointments Provider Department Dept Phone 01/20/2024 10:40 AM Chrissy Zepeda APRN Cardiology at [facility] Arrive at: [employer] Logger Area [phone] Future Orders Complete By Expires Digoxin level [LAB23 Custom] 12/22/2023 06/22/2024 Process Instructions: Scheduling Instructions: Comments: Questions: Trans Echo (HARSH) with Cardioversion [ECH19 Custom] 01/15/2024 07/16/2024 Process Instructions: PATIENT INSTRUCTIONS: You should have nothing to eat or drink for at least 6 hours before this test. You will be sedated for this procedure and will need someone to drive you home. Scheduling Instructions: Questions: Where will study be performed?: [facility] Does the patient have difficulty swallowing?: No Does the patient have esophageal problems?: No Is a 3D HARSH needed? (If Yes, provide indication in comment section): Referral to Cardiac Rehab [CPW985 Custom] As directed Process Instructions: If no progress note charted, please enter Clinical details in comments. Scheduling Instructions: Questions: My question or request is: cardiomyopathy Discharge References/Attachments None More than 30 minutes were spent on this discharge including documentation, [id number] time with patient, patient education, order booker, and coordination pharmacy, follow-up and other patient care. Layo Starr MD 12/16/2023 1:42 PM documented in this encounter Discharge Instructions * Patient Instructions* Layo Starr MD - 12/15/2023 4:55 PM EDT Hospital course You were admitted to [facility] for elevated heart rate and shortness of breath. You were diagnosed with congestive heart failure and atrial fibrillation. Looks like you are not taking your medications like to you should for the last few months now, which is the the reason for your presentation. We wanted to shock your heart to get to normal heart rhythm. you went for a procedure called transesophageal echocardiogram, we apparently saw a possibility of blood clot in one of the small chambers of the heart called left atrial appendage. Hence the procedure was aborted andwe did not show shock your heart as this could have caused stroke. Cardiology team was consulted, re commended against any antiarrhythmic drugs or cardioversion at this time. You were started on a medication called digoxin and your heart rates have been doing well, you will continue to take that medication. Also you were started on Xarelto, you will be taking 15 mg twice a day for 21 days followedby 20 mg nightly. You did have ultrasound of your heart which shows decreased pumping function of your heart about, about 30% which we think is likely related to atrial fibrillation. Will need to take your medications as prescribed and will need to follow-up with cardiology as outpatient in about 3to 4 weeks. We will likely schedule you for a repeat procedure resolution of the blood clot and cons ider shocking/cardioversion at that time. You will also get a repeat ultrasound of the heart in about 3 months to look for improvement in heart function. You were put on a diuretic, Lasix 40 mg daily, you will continue to take the diuretics as needed. If you notice any swelling in your legs or weight gain of 2 pounds overnight or 5 pounds in 5 days, you will take extra dose of Lasix 40 mg x 1 andcall your doctor about it. Call your doctor if: Chest pain, palpitations, dyspnea, pain or swelling in legs occurs, or for weight gain of 2 pounds overnight or 5 pounds in 5 days. If you have non-emergent questions, prior to your follow-up visit call: Saturday-Saturday between the hours of 8AM-5PM please call the Cardiology Clinic [phone] to speak with a nurse. All other hours please call the Hospital Commissioning Manager [phone] and ask to speak to the cardiovascular hospitalist on-call. For any emergent questions, please call 911 or visit your nearest emergency department/urgent care center Return to work: One week Driving: No driving for 48 hours after cath Follow up Appointments: Doctor Where Phone # Date Time PCP Tami Triana [address] [place] [id number] Dec, , 11.30 PM Corrections Unit Supervisor [facility] [phone] Jan 19Saturday 10.40 AM Diet-2 g salt, 2 L/day fluid restriction Activity-as tolerated. documented in this encounter Medications at Time of Discharge Medication Sig Dispensed Refills Start Date End Date cyanocobalamin, Vitamin B-12, (Vitamin B-12) 1,000 mcg tablet Take 1,000 mcg by mouth daily. tamsulosin (Flomax) 0.4 mg Capsule Take 0.4 mg by mouth daily. hydrOXYchloroQUINE (Plaquenil) 200 mg Tablet Take 200 mg by mouth Daily. 04/04/2018 cholecalciferol, Vitamin D3, (Vitamin D3) 1,000 unit Tablet Take 1 tablet by mouth daily. 11/01/2014 albuteroL 90 mcg/actuation inhaler (HFA) Inhale 2 puffs into the lungs every 6 hours as needed for Wheezing. Use with Spacer 2 each 12/16/2023 rivaroxaban (Xarelto) 15 mg tablet Take 1 tablet by mouth 2 times daily for 21 days. 42 tablet 12/16/2023 01/06/2024 rivaroxaban (Xarelto) 20 mg tablet Take 1 tablet by mouth nightly. 90 tablet 3 01/07/2024 Spiriva Respimat 2.5 mcg/actuation inhaler Inhale 1 puff into the lungs daily. 2 each 12/16/2023 digoxin (Lanoxin) 125 mcg (0.125 mg) tablet Take 2 tablets by mouth daily. 90 tablet 12/16/2023 furosemide (Lasix) 40 mg tablet Take 1 tablet by mouth daily. 90 tablet 12/16/2023 losartan (Cozaar) 25 mg tablet Take 1 tablet by mouth daily. 90 tablet 12/16/2023 metoprolol tartrate (Lopressor) 100 mg tablet Take 1 tablet by mouth 2 times daily. 180 tablet 12/16/2023 spironolactone (Aldactone) 25 mg tablet Take 1 tablet by mouth daily. 90 tablet 12/16/2023 documented as of this encounter Progress Notes * Layo Starr MD - 12/15/2023 2:23 PM EDT [facility] 2 - [facility] DAILY PROGRESS NOTE Page [phone] to reach a provider 01/10 Admit Date: 12/12/2023 Encounter Date December 15, 2023 Anticipated Discharge Date: 12/16/2023 Hospital Day: 3 Active Hospital Problems Diagnosis Atrial flutter Resolved Hospital Problems No resolved problems to display. 24 Hour Events/Subjective: No acute events overnight. Patient feeling significantly better. Denies any chest pain, shortness of breath, cough potation's,lightheadedness dizziness, nausea or vomiting. Has been tolerating p.o. Yesterday afternoon patient's heart rates were again high in 120s to 130s, given extra dose of 125 mcg of digoxin in addition to 125 mcg that he received yesterday morning. Increased the maintenance to 250 mcg daily. Medications: Scheduled Meds: metoproloL tartrate 100 mg Oral 2 times per day losartan 25 mg Oral Daily furosemide 40 mg Oral Daily rivaroxaban 20 mg Oral QPM digoxin 250 mcg Oral Daily potassium chloride ER 40 mEq Oral Daily cyanocobalamin (Vitamin B-12) 1,000 mcg Oral Daily hydrOXYchloroQUINE 200 mg Oral Daily tiotropium 2 puff Inhalation Daily tamsulosin 0.4 mg Oral Daily sodium chloride 0.9 % (flush) 5 mL Intravenous BID famotidine 20 mg Oral BID docusate sodium 100 mg Oral BID spironolactone 25 mg Oral Daily Continuous Infusions: PRN Meds:.albuteroL, sodium chloride 0.9 % (flush), lidocaine, nitroGLYcerin, acetaminophen, zolpidem, LORazepam, bisacodyL, magnesium hydroxide, metoproloL Objective: Last value Range last 24 hrs Temp: 36.6 ??C (97.9 ??F) Temp: [36.6 ??C (97.8 ??F)-37.3 ??C (99.2 ??F)] Heart Rate: 91 Heart Rate from SpO2: (!) 39 bpm Heart Rate: [74-111] BP: (!) 127/96 BP: (94-127)/(64-96) Resp: 15 Resp: [15-18] SpO2: 94 % SpO2: [93 %-96 %] Height: 172.7 cm (5' 8) Weight: 81.6 kg (179 lb 12.8 oz) BMI (Calculated): 27.24 BMI Classification: Over Weight Admit weight: 81.28 kg Patient Vitals for the past 168 hrs: Weight 12/15/23 0332 81.6 kg (179 lb 12.8 oz) 12/14/23 0708 80.9 kg (178 lb 6.4 oz) 12/13/23 0542 80.9 kg (178 lb 6.4 oz) 12/12/23 1815 81.3 kg (179 lb 3.2 oz) Intake/Output Summary (Last 24 hours) at 12/15/2023 1423 Last data filed at 12/15/2023 0642 Gross per 24 hour Intake 550 ml Output 300 ml Net 250 ml Physical Exam: General-alert and oriented x 3, not in acute respiratory distress HEENT-atraumatic normocephalic, pupils bilaterally equal and reactive, no jugular venous distention Heart-S1-S2 present, irregular in rate and rhythm, no murmurs gallops or rubs Respiratory-normal breath sounds, no crackles heard today. Abdomen- soft, non tender, + BS Neuro- No focal neurological deficits Extremities- B/L Pulses 2+, no edema Skin- normal Labs: Recent Labs 12/15/2323012/14/2330112/12/232041 WBC 9.33 12.68* 10.33* HGB 14.2 13.9 15.1 HCT 42.5 42.4 45.4 PLATELET 223 214 236 MCV 93.6* 94.4* 95.0* Recent Labs 12/15/2323012/14/2330112/13/23 0755 12/12/232040 NA 138 137 140 139 CL 100 97* 99 96* CO2 27 28 28 20* K 3.7 3.2* 3.3* 3.5 MAGNESIUM 1.03 0.74 -- 0.86 PHOS -- -- -- 3.6 CALCIUM 9.2 9.3 9.3 9.9 BUN 27* 31* 25* 21* CREATININE 1.16 1.33 1.31 1.28 Coags Recent Labs 12/12/232040 INR 1.2 PT 13.2* PTT 32 Cardiac Markers Recent Labs 12/12/232040 PROBNP 6,282* Endocrine Recent Labs 12/12/232040 TSH 0.85 Recent Labs 12/13/23 022 CHLPL 141 TRIG 83 HDL 54 LDLCHOL 71 Recent Labs 12/15/2323012/14/2330112/13/23 0755 GLUCOSE 109 107 106 Stress Testin02/13/2021 IMPRESSION Normal perfusion imaging. No ischemia or scar. Left ventricular function is normal. Echocardiogram: 12/13/2023 Interpretation Summary Left ventricle is of normal size. Wall thickness is mildly increased. The left ventricular ejection fraction is 29% by Braun's biplane. There is global hypokinesis with regional variation. The right ventricle is probably normal in size. Right ventricular systolic function is mildly decreased. There is mild to moderate mitral regurgitation. EKG: Atrial flutter with 2 is to 1 AV block, rightward axis, LVH, nonspecific T wave abnormalities. Telemetry: In atrial fibrillation however rates have significantly improved, currently ranging between 80s to 90s, intermittently/occasionally in 120-140s. Imaging: No results found for this visit on 12/12/23 (from the past 24 hour(s)). 2D echocardiogram, 12/13/2023, interpretation Summary Left ventricle is of normal size. Wall thickness is mildly increased. The left ventricular ejection fraction is 29% by Braun's biplane. There is global hypokinesis with regional variation. The right ventricle is probably normal in size. Right ventricular systolic function is mildly decreased. There is mild to moderate mitral regurgitation. Assessment: Rajan Faulkner is a 72 y.o. 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 Plan: # Atrial flutter/atrial fibrillation in RVR-heart rate is improving # Left atrial appendage thrombus Patient was a transfer from outside hospital, noted his initial heart rates to be in 150s, was not atrial flutter with 2 is to 1 AV block. He was initially started on Cardizem drip, given low EF, Cardizem drip was discontinued and was started on beta-estefania. Patient was supposed to be on metoprolol, amiodarone and Xarelto outpatient however patient stoppedtaking his medications at least for the last 6 months, noted that cost was effective, case management was consulted to help with patient's medications upon discharge. Will hold off on adding antiarrhythmic agents at this time due to risk of pharmacologic cardioversion and CVA. Started the patient on metoprolol tartrate 50 mg every 6 hours, 12/13/2023, switched to 100 mg twicedaily, 12/15/2023 Also started the patient on digoxin loading dose, noted that patient is on Plaquenil that could interact with digoxin, started maintenance dose at 250 mcg daily, 12/14/2023. Digoxin level of 1.0 today. Ordered HARSH cardioversion, however noted that there was heavy smoke in the left atrial appendage, was unable to rule out thrombus and hence cardioversion was not performed. [id number],, started on Lovenox 1 mg/kg body weight twice daily, 12/13/2023. Transitioned to Xarelto 15 mg BID for 21 days followed by 20 mg nightly. Discussed the case with EP and general cardiology, 12/13/2023-recommending repeat HARSH in about 3 to 4 weeks to evaluate for resolution of CARROLL thrombus and cardioversion # Acute systolic heart failure exacerbation-likely triggered by atrial fibrillation # Cardiomyopathy, tachycardia related cardiomyopathy, EF of 29% # Acute hypoxic respiratory failure Patient was diuresed with IV outside hospital, on clinical examination today, patient is euvolemic. Was on Lasix 40 mg IV twice daily, discontinued and started the patient on Lasix 40 mg daily. 2D echocardiogram, 12/13/2023-shows LVEF of 29%, global hypokinesis with regional variation. RV systolic function is mildly decreased, mild to moderate MR. Will consider transitioning metoprolol to succinate once heart rate stabilized. No prior ischemic evaluation, discussed with cardiology about ischemic workup, given this is likelytachycardia induced cardiomyopathy, recommending to hold off on ischemic evaluation at this time, repeat 2D echocardiogram in about 3 months and needs reevaluated for the need of ischemic workup. Started on losartan 25 mg daily, 12/14/2023 continue with spironolactone 25 mg daily-patient tolerating the medications. LDL of 71. TSH of 0.85. # Hypokalemia # Likely acute kidney injury # Hypomagnesemia Patient's baseline creatinine about a year ago was around 0.9, creatinine on presentation 1.58, creatinine today 1.16, will continue to closely monitor. Repleted potassium and magnesium. # Status post left sixth rib resection # Chronic loculated left hydropneumothorax # COPD #RS3PE Cont with plaquenil 200 mg daily. Continue his breathing treatments. Diet: Cardiac diet 2 GM NA; 2000 mL FLUID DVT Prophylaxis: DOAC Code status: Attempt Cardiopulmonary Resuscitation - Inpatient Disposition: Discharge Location: AM-PAC Basic Mobility Raw Score: 23 PT: OT: PCP Tami Olivia [phone] Disposition-discharge tomorrow. Layo Starr MD 12/15/2023 2:23 PM * Tita Ford MSW - 12/15/2023 11:46 AM EDT SOCIAL WORK NOTE SW met with Pt at request of provider team for assistance completing an Advance Directive. SW introduced self, role; services accepted. Met with the patient and his significant other Melania. The patient believes he has a completed Advance Directive at home listing his daughter and son as decision makers. He would like to make changes and take his daughter and son off as decision makers if that is what it listed, he was unsure what his current Advance Directive listed as other wishes as well. Melania will be returning home tonight and will bring the Advance Directive in tomorrow to update or make the change the patient is requesting. A new copy of the [place] Advance Directive was left for review and in the event that the patient wants to make a lot of changes to the existing form. Patient and significant other educated on the purpose of the Advance Directive and process to change or update it. Tita Ford [facility] Office of Case Management-Gas Meter Checker Clinical Gas Meter Checker ED CDU SDP Pager [phone] * Layo Starr MD - 12/14/2023 11:10 AM EDT CV HOSPITALIST 2 - [facility] DAILY PROGRESS NOTE Page [phone] to reach a provider 01/10 Admit Date: 12/12/2023 Encounter Date December 14, 2023 Anticipated Discharge Date: 12/15/2023 Hospital Day: 2 Active Hospital Problems Diagnosis Atrial flutter Resolved Hospital Problems No resolved problems to display. 24 Hour Events/Subjective: No acute events overnight. Patient feeling significantly better. Denies any chest pain, shortness of breath, cough potation's,lightheadedness dizziness, nausea or vomiting. Has been tolerating p.o. Family present at bedside. We did discuss about fluid heart rates today with metoprolol and digoxin, plan is to closely monitoring for the next 24 hours, transitioning to Xarelto tonight. Also patient admits to talking to case management yesterday in regards to assistance for his medications upon di scharge. Medications: Scheduled Meds: digoxin 125 mcg Oral Daily losartan 25 mg Oral Daily furosemide 40 mg Oral Daily rivaroxaban 20 mg Oral QPM metoproloL tartrate 50 mg Oral Q6H [place] potassium chloride ER 40 mEq Oral Daily cyanocobalamin (Vitamin B-12) 1,000 mcg Oral Daily hydrOXYchloroQUINE 200 mg Oral Daily tiotropium 2 puff Inhalation Daily tamsulosin 0.4 mg Oral Daily sodium chloride 0.9 % (flush) 5 mL Intravenous BID famotidine 20 mg Oral BID docusate sodium 100 mg Oral BID spironolactone 25 mg Oral Daily Continuous Infusions: PRN Meds:.albuteroL, sodium chloride 0.9 % (flush), lidocaine, nitroGLYcerin, acetaminophen, zolpidem, LORazepam, bisacodyL, magnesium hydroxide, metoproloL Objective: Last value Range last 24 hrs Temp: 36.9 ??C (98.4 ??F) Temp: [36.1 ??C (97 ??F)-37.3 ??C (99.1 ??F)] Heart Rate: 87 Heart Rate from SpO2: (!) 39 bpm Heart Rate: [80-138] BP: 113/75 BP: (98-127)/(66-112) Resp: 18 Resp: [18-30] SpO2: 98 % SpO2: [91 %-98 %] Height: 172.7 cm (5' 8) Weight: 80.9 kg (178 lb 6.4 oz) BMI (Calculated): 27.24 BMI Classification: Over Weight Admit weight: 81.28 kg Patient Vitals for the past 168 hrs: Weight 12/14/23 0708 80.9 kg (178 lb 6.4 oz) 12/13/23 0542 80.9 kg (178 lb 6.4 oz) 12/12/23 1815 81.3 kg (179 lb 3.2 oz) Intake/Output Summary (Last 24 hours) at 12/14/2023 1110 Last data filed at 12/14/2023 0905 Gross per 24 hour Intake 1760 ml Output 1475 ml Net 285 ml Physical Exam: General-alert and oriented x 3, not in acute respiratory distress HEENT-atraumatic normocephalic, pupils bilaterally equal and reactive, no jugular venous distention Heart-S1-S2 present, irregular in rate and rhythm, no murmurs gallops or rubs Respiratory-normal breath sounds, no crackles heard today. Abdomen- soft, non tender, + BS Neuro- No focal neurological deficits Extremities- B/L Pulses 2+, no edema Skin- normal Labs: Recent Labs 12/14/23 0302 12/12/232041 WBC 12.68* 10.33* HGB 13.9 15.1 HCT 42.4 45.4 PLATELET 214 236 MCV 94.4* 95.0* Recent Labs 12/14/23 0302 12/13/23 0755 12/12/232040 NA 137 140 139 CL 97* 99 96* CO2 28 28 20* K 3.2* 3.3* 3.5 MAGNESIUM 0.74 -- 0.86 PHOS -- -- 3.6 CALCIUM 9.3 9.3 9.9 BUN 31* 25* 21* CREATININE 1.33 1.31 1.28 Coags Recent Labs 12/12/232040 INR 1.2 PT 13.2* PTT 32 Cardiac Markers Recent Labs 12/12/232040 PROBNP 6,282* Endocrine Recent Labs 12/12/232040 TSH 0.85 Recent Labs 12/13/23 0222 CHLPL 141 TRIG 83 HDL 54 LDLCHOL 71 Recent Labs 12/14/23 0302 12/13/23 0755 12/12/232040 GLUCOSE 107 106 114 Stress Testin02/13/2021 IMPRESSION Normal perfusion imaging. No ischemia or scar. Left ventricular function is normal. Echocardiogram: 12/13/2023 Interpretation Summary Left ventricle is of normal size. Wall thickness is mildly increased. The left ventricular ejection fraction is 29% by Braun's biplane. There is global hypokinesis with regional variation. The right ventricle is probably normal in size. Right ventricular systolic function is mildly decreased. There is mild to moderate mitral regurgitation. EKG: Atrial flutter with 2 is to 1 AV block, rightward axis, LVH, nonspecific T wave abnormalities. Telemetry: In atrial fibrillation however rates have significantly improved, currently ranging between 80s to 90s, intermittently/occasionally in 130s. Imaging: No results found for this visit on 12/12/23 (from the past 24 hour(s)). 2D echocardiogram, 12/13/2023, interpretation Summary Left ventricle is of normal size. Wall thickness is mildly increased. The left ventricular ejection fraction is 29% by Braun's biplane. There is global hypokinesis with regional variation. The right ventricle is probably normal in size. Right ventricular systolic function is mildly decreased. There is mild to moderate mitral regurgitation. Assessment: Rajan Faulkner is a 72 y.o. 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 Plan: # Atrial flutter/atrial fibrillation in RVR-heart rate is improving # Left atrial appendage thrombus Patient was a transfer from outside hospital, noted his initial heart rates to be in 150s, was not atrial flutter with 2 is to 1 AV block. He was initially started on Cardizem drip, given low EF, Cardizem drip was discontinued and was started on beta-estefania. Patient was supposed to be on metoprolol, amiodarone and Xarelto outpatient however patient stoppedtaking his medications at least for the last 6 months, noted that cost was effective, case management was consulted to help with patient's medications upon discharge. Will hold off on adding antiarrhythmic agents at this time due to risk of pharmacologic cardioversion and CVA. Started the patient on metoprolol tartrate 50 mg every 6 hours, 12/13/2023, will switch to 100 mg twice daily starting this evening. Also started the patient on digoxin loading dose, noted that patient is on Plaquenil that could interact with digoxin, started maintenance dose at 250 mcg daily today. Will order dig levels in AM. Ordered HARSH cardioversion, however noted that there was heavy smoke in the left atrial appendage, was unable to rule out thrombus and hence cardioversion was not performed. [id number],, started on Lovenox 1 mg/kg body weight twice daily, 12/13/2023 will transition to Xarelto 20 mg nightly starting today. Discussed the case with EP and general cardiology, 12/13/2023-recommending repeat HARSH in about 3 to 4 weeks to evaluate for resolution of CARROLL thrombus and cardioversion # Acute systolic heart failure exacerbation-likely triggered by atrial fibrillation # Cardiomyopathy, tachycardia related cardiomyopathy, EF of 29% # Acute hypoxic respiratory failure Patient was diuresed with IV outside hospital, on clinical examination today, patient is euvolemic. Was on Lasix 40 mg IV twice daily, discontinued and started the patient on Lasix 40 mg daily. 2D echocardiogram, 12/13/2023-shows LVEF of 29%, global hypokinesis with regional variation. RV systolic function is mildly decreased, mild to moderate MR. Will consider transitioning metoprolol to succinate once heart rate stabilized. No prior ischemic evaluation, discussed with cardiology about ischemic workup, given this is likelytachycardia induced cardiomyopathy, recommending to hold off on ischemic evaluation at this time, repeat 2D echocardiogram in about 3 months and needs reevaluated for the need of ischemic workup. Will start the patient on losartan 25 mg daily today. Continue with spironolactone 25 mg daily, LDL of 71. TSH of 0.85. # Hypokalemia # Likely acute kidney injury # Hypomagnesemia Patient's baseline creatinine about a year ago was around 0.9, creatinine on presentation 1.58, creatinine today 1.33, will continue to closely monitor. Repleted potassium and magnesium. # Status post left sixth rib resection # Chronic loculated left hydropneumothorax # COPD #RS3PE Cont with plaquenil 200 mg daily. Continue his breathing treatments. Diet: Cardiac diet 2 GM NA; 2000 mL FLUID DVT Prophylaxis: DOAC Code status: Attempt Cardiopulmonary Resuscitation - Inpatient Disposition: Discharge Location: AM-[facility] Basic Mobility Raw Score: 23 PT: OT: PCP Tami Olivia [phone] Disposition-likely discharge in the next 24 to 48 hours. Layo Starr MD 12/14/2023 11:10 AM * Tamika Nair - 12/13/2023 5:32 PM EDT Pt is A&Ox4. VSS and pt denies SOB and/or CP. Pt went for HARSH cardioversion - was not cardioverted, see provider notes from 12/12. Significant other at bedside. Digoxin IVP started for rate control. * Rowena Olivares RN - 12/13/2023 11:49 AM EDT 1125 pt admitted to PACU s/p HARSH. Monitors attached and alarms set. Report received from covering RNRoxane. Pt awake cooperative with care. WCM * Layo Starr MD - 12/13/2023 11:39 AM EDT CV HOSPITALIST 2 - [facility] DAILY PROGRESS NOTE Page [phone] to reach a provider 01/10 Admit Date: 12/12/2023 Encounter Date December 13, 2023 Anticipated Discharge Date: 12/15/2023 Hospital Day: 1 Active Hospital Problems Diagnosis Atrial flutter Resolved Hospital Problems No resolved problems to display. 24 Hour Events/Subjective: No acute events overnight. 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 He is status post cardioversion sometime last year. Given he was doing well he decided to stop taking his metoprolol amiodarone and Xarelto. Over the last few weeks has been noticing progressive shortness of breath however has gotten significantly worse in the last 3 weeks. Denies any palpitations, lightheadedness dizziness or syncopal event. Also denies any chest pain, nausea vomiting, focal weakness or paresthesias. We did discuss about need for cardioversion, patient agreed and consented for the procedure. Medications: Scheduled Meds: [Transfer Hold] metoproloL tartrate 50 mg Oral Q6H [facility] [Transfer Hold] enoxaparin 80 mg Subcutaneous 2 times per day digoxin 375 mcg Intravenous Once Followed by digoxin 187.5 mcg Intravenous Q6H [Transfer Hold] cyanocobalamin (Vitamin B-12) 1,000 mcg Oral Daily [Transfer Hold] hydrOXYchloroQUINE 200 mg Oral Daily [Transfer Hold] tiotropium 2 puff Inhalation Daily [Transfer Hold] tamsulosin 0.4 mg Oral Daily [Transfer Hold] sodium chloride 0.9 % (flush) 5 mL Intravenous BID [Transfer Hold] famotidine 20 mg Oral BID [Transfer Hold] docusate sodium 100 mg Oral BID [Transfer Hold] furosemide 40 mg Intravenous BID [Transfer Hold] spironolactone 25 mg Oral Daily Continuous Infusions: PRN Meds:.lidocaine, [Transfer Hold] albuteroL, [Transfer Hold] sodium chloride 0.9 % (flush), [Transfer Hold] lidocaine, [Transfer Hold] nitroGLYcerin, [Transfer Hold] acetaminophen, [Transfer Hold]zolpidem, [Transfer Hold] LORazepam, [Transfer Hold] bisacodyL, [Transfer Hold] magnesium hydroxide, [Transfer Hold] metoproloL Objective: Last value Range last 24 hrs Temp: 36.1 ??C (97 ??F) Temp: [36.1 ??C (97 ??F)-36.7 ??C (98 ??F)] Heart Rate: (!) 138 Heart Rate: [104-166] BP: (!) 127/112 BP: (102-127)/(74-112) Resp: 23 Resp: [17-23] SpO2: 96 % SpO2: [93 %-97 %] Height: 172.7 cm (5' 8) Weight: 80.9 kg (178 lb 6.4 oz) BMI (Calculated): 27.24 BMI Classification: Over Weight Admit weight: 81.28 kg Patient Vitals for the past 168 hrs: Weight 12/13/23 0542 80.9 kg (178 lb 6.4 oz) 12/12/23 1815 81.3 kg (179 lb 3.2 oz) Intake/Output Summary (Last 24 hours) at 12/13/2023 1139 Last data filed at 12/13/2023 1125 Gross per 24 hour Intake 542 ml Output 1075 ml Net -533 ml Physical Exam: General-alert and oriented x 3, not in acute respiratory distress HEENT-atraumatic normocephalic, pupils bilaterally equal and reactive, no jugular venous distention Heart-S1-S2 present, irregular in rate and rhythm, no murmurs gallops or rubs Respiratory-minimal bibasilar crackles. Abdomen- soft, non tender, + BS Neuro- No focal neurological deficits Extremities- B/L Pulses 2+, no edema Skin- normal Labs: Recent Labs 12/12/232041 WBC 10.33* HGB 15.1 HCT 45.4 PLATELET 236 MCV 95.0* Recent Labs 12/13/23 0755 12/12/232040 NA 140 139 CL 99 96* CO2 28 20* K 3.3* 3.5 MAGNESIUM -- 0.86 PHOS -- 3.6 CALCIUM 9.3 9.9 BUN 25* 21* CREATININE 1.31 1.28 Coags Recent Labs 12/12/232040 INR 1.2 PT 13.2* PTT 32 Cardiac Markers Recent Labs 12/12/232040 PROBNP 6,282* Endocrine Recent Labs 12/12/232040 TSH 0.85 Recent Labs 12/13/23 0222 CHLPL 141 TRIG 83 HDL 54 LDLCHOL 71 Recent Labs 12/13/23 0755 12/12/232040 GLUCOSE 106 114 Stress Testin02/13/2021 IMPRESSION Normal perfusion imaging. No ischemia or scar. Left ventricular function is normal. Echocardiogram: 12/13/2023 Interpretation Summary Left ventricle is of normal size. Wall thickness is mildly increased. The left ventricular ejection fraction is 29% by Braun's biplane. There is global hypokinesis with regional variation. The right ventricle is probably normal in size. Right ventricular systolic function is mildly decreased. There is mild to moderate mitral regurgitation. EKG: Atrial flutter with 2 is to 1 AV block, rightward axis, LVH, nonspecific T wave abnormalities. Telemetry: Atrial flutter/fibrillation in RVR Telemetry: I have personally reviewed and interpreted the telemetry from the last 24 hours. Resultsshow atrial fibrillation and flutter, heart rates up to 160s.. Imaging: Results for orders placed or performed during the hospital encounter of 12/12/23 (from the past 24 hour(s)) XR Chest PA & Lateral (Generic) (Exam End: 12/12/2023 10:47 PM) Result Value WORKSTATION ID [id number] Impression Improved aeration both lungs with decreased volume of loculated chronic left hydropneumothorax. Thank you for letting us participate in the care of this patient. If you are a health care provider and have any questions regarding this report, please contact the number below. For patients who have questions please contact the health career resource specialist that requested your imaging first. Electronically signed by: Maryann Magallanes MD, [facility] ([phone]), at 12/13/2023 2:25 AM 2D echocardiogram, 12/13/2023, interpretation Summary Left ventricle is of normal size. Wall thickness is mildly increased. The left ventricular ejection fraction is 29% by Braun's biplane. There is global hypokinesis with regional variation. The right ventricle is probably normal in size. Right ventricular systolic function is mildly decreased. There is mild to moderate mitral regurgitation. Assessment: Rajan Faulkner is a 72 y.o. 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 Plan: # Atrial flutter/atrial fibrillation in RVR Patient was a transfer from outside hospital, noted his initial heart rates to be in 150s, was not atrial flutter with 2 is to 1 AV block. He was initially started on Cardizem drip, given low EF, Cardizem drip was discontinued and was started on beta-estefania. Patient was supposed to be on metoprolol, amiodarone and Xarelto outpatient however patient tells me that he was doing well and hence he decided to stop taking his medications at least for the last 6months. Will hold off on adding antiarrhythmic agents at this time due to risk of pharmacologic cardioversion and CVA. Started the patient on metoprolol tartrate 50 mg every 6 hours this a.m., his heart rates continuesto be uncontrolled but patient is feeling significant improvement in his symptoms. Ordered HARSH cardioversion, however noted that there was heavy smoke in the left atrial appendage, was unable to rule out thrombus and hence cardioversion was not performed. In addition to metoprolol, will start the patient on digoxin loading dose. Will also consult general cardiology further recommendations. [id number], will hold off on Xarelto, started on Lovenox 1 mg/kg body weight twice daily, will transition to DOAC if no plan for any procedures. 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 Is currently on Lasix 40 mg IV twice daily, will continue and consider transitioning to oral Lasix 40 mg p.o. twice daily. 2D echocardiogram, 12/13/2023-shows LVEF of 29%, global hypokinesis with regional variation. RV systolic function is mildly decreased, mild to moderate MR. Will consider transitioning metoprolol to succinate once heart rate stabilized. No prior ischemic evaluation, will discuss with cardiology about need for left heart catheterization. Blood pressures are currently ranging between 90s to 120s systolic. Once hemodynamically more stable, will consider starting him on GDMT, on admission spironolactone 25 mg daily has been started, will continue. LDL of 71. TSH of 0.85. # Hypokalemia # Likely acute kidney injury Patient's baseline creatinine about a year ago was around 0.9, creatinine on presentation 1.58, creatinine today 1.31, will continue to closely monitor. Added potassium chloride 40 mg daily. # Status post left sixth rib resection # Chronic loculated left hydropneumothorax # COPD #RS3PE Cont with plaquenil 200 mg daily. Continue his breathing treatments. Diet: NPO diet (Give Meds) DVT Prophylaxis: LMWH DOAC Code status: Attempt Cardiopulmonary Resuscitation - Inpatient Disposition: Discharge Location: [facility] Basic Mobility Raw Score: 20 PT: OT: PCP Tami Olivia [phone] Layo Starr MD 12/13/2023 11:58 AM Addendum: Discussed the case with general cardiology team-recommending to hold off on ischemic workup at thistime, agree that this could be more tachycardia related cardiomyopathy. In regards to his atrial fibrillation/flutter, discussed the case with the EP team-agree to continue with p.o. metoprolol 50 every 6 hours and digoxin loading dose, and have no other options at this time. Also recommended serial TTE's, every 1 month, to look for resolution of CARROLL smoke and in that case can consider antiarrhythmic drugs/cardioversion. Layo Starr MD 12/13/2023 1:41 PM * Layo Starr MD - 12/13/2023 9:37 AM EDT Images from the original note were not included. [facility] Pre-Procedure H&P and Pre-Sedation Assessment Rajan Faulkner is a 72 y.o. male referred for HARSH cardioversion. There have been no significant changes in health status since the prior H&P documented within the past 30 days. Bleeding concerns: No Kidney disease: No Diabetes: No DAPT Status (if applicable): No Anticoagulation status: Patient was supposed to be on Xarelto however has not been taking it for the last 6 months. He was started on Xarelto in house, however noted that the night dose was not given, started him on Lovenox 1 mg/kg twice daily every 12 hours, will transition to Xarelto if plan for no procedures. NPO status: N.p.o. since midnight Alcohol History: No Prior issues with sedation/anesthesia/airway: No Medical and surgical history reviewed and updated as appropriate. Allergies Allergen Reactions Cat Dander Runny eyes and nose Dog Dander Runny eyes and nose Current Facility-Administered Medications for the 12/12/23 encounter (Hospital Encounter) Medication Dose Route Frequency Provider Last Rate Last Admin sodium chloride 0.9% infusion 1,000 mL Intravenous Continuous Sekou Canales MD Outpatient Medications Marked as Taking for the 12/12/23 encounter (Hospital Encounter) Medication Sig Dispense Refill rivaroxaban (Xarelto) 15 mg tablet Take 1 tablet by mouth daily. 90 tablet 3 metoprolol succinate XL (Toprol-XL) 25 mg ER 24 hr tablet Take 1 tablet by mouth daily. 30 tablet 12 calcium carbonate-vitamin D3 600 mg-20 mcg (800 unit) Tablet Take 1 tablet by mouth daily. cyanocobalamin, Vitamin B-12, (Vitamin B-12) 1,000 mcg tablet Take 1,000 mcg by mouth daily. AMIOdarone (Paceron) 200 mg Tablet Take 1 tablet by mouth daily. 30 tablet 11 Spiriva Respimat 2.5 mcg/actuation Mist bupropion HCl (WELLBUTRIN ORAL) Take 150 mg by mouth daily. tamsulosin (Flomax) 0.4 mg Capsule Take 0.4 mg by mouth daily. hydrOXYchloroQUINE (Plaquenil) 200 mg Tablet Take 200 mg by mouth Daily. albuterol sulfate (Proair Digihaler) 90 mcg/actuation aero powdr breath act w/sensor 4 times daily as needed. cholecalciferol, Vitamin D3, (Vitamin D3) 1,000 unit Tablet Take 1 tablet by mouth daily. BP 118/74 (BP Location (NBP): Right arm, Patient Position: Lying) Pulse (!) 129 Temp 36.7 ??C (98 ??F) (Oral) Resp 17 Ht 172.7 cm (5' 8) Wt 80.9 kg (178 lb 6.4 oz) SpO2 94% BMI 27.13 kg/m?? @LASTWEIGHT1@ PE NAD CV: Irregular in RR, S1 S2 physiologic, no JVD Pulm: Non-labored, minimal bibasilar crackles. Abd: soft, NT, ND, +BS, no bruits Vasc: 2+ bilat radial with favorable Fortunato's test on the R, 2+ bilat femoral pulses w/o bruits, 2+ bilat DP pulses Extr: wwp, no edema ASA: 2: Patient with mild systemic disease Mallampati: II: tonsillar pillars are blocked by the tongue Labs reviewed and notable for: Lab Results Component Value Date WBC 10.33 (H) 12/12/2023 HGB 15.1 12/12/2023 HCT 45.4 12/12/2023 MCV 95.0 (H) 12/12/2023 PLATELET 236 12/12/2023 Lab Results Component Value Date CREATININE 1.31 12/13/2023 BUN 25 (H) 12/13/2023 NA 140 12/13/2023 K 3.3 (L) 12/13/2023 CL 99 12/13/2023 CO2 28 12/13/2023 Lab Results Component Value Date INR 1.2 12/12/2023 Stress Testin02/13/2021 IMPRESSION Normal perfusion imaging. No ischemia or scar. Left ventricular function is normal. Echocardiogram: 12/13/2023 Interpretation Summary Left ventricle is of normal size. Wall thickness is mildly increased. The left ventricular ejection fraction is 29% by Braun's biplane. There is global hypokinesis with regional variation. The right ventricle is probably normal in size. Right ventricular systolic function is mildly decreased. There is mild to moderate mitral regurgitation. EKG: Atrial flutter with 2 is to 1 AV block, rightward axis, LVH, nonspecific T wave abnormalities. Telemetry: Atrial flutter/fibrillation in RVR A/P 72 y.o. male here for afib/flutter with RVR, needing HARSH cardioversion HARSH-DCCV consent A discussion was held reviewing the benefits and attendant risks of transesophageal echocardiogram and cardioversion. The risks included, but are not limited to: stroke; damage to the esophagus, including perforation; aspiration; rarely ; infection; allergic reaction to medications including nausea, vomiting, or rash; bleeding; changes in heart rate or rhythm requiring treatment including temporary pacemaker placement; recurrence of the abnormal heart rhythm; changes in breathing requiringtreatment, including spasm of the vocal cords or airway passages; decreased level of oxygen in the blood or congestive heart failure; angina pectoris; chest muscle soreness; redness and irritation ofthe skin; sore throat; damage to teeth. After a discussion about the above, and having answered allquestions posed, the patient was provided with a consent which was reviewed and signed. - Proceed as planned - Consent reviewed and signed - No apparent contraindication to planned procedure - Sedation plan: moderate/conscious sedation OR as per Anesthesia - FULL CODE - Patient to return to inpatient bed following procedure completion Layo Starr MD 12/13/2023 9:44 AM documented in this encounter H&P Notes * Ning Bolivar MD - 12/12/2023 7:42 PM EDT Cardiology Admission H&P Patient Name: Rajan Faulkner Date of : 1950 Age: 72 y.o. Hospital Admit Date: 12/12/2023 Inpatient Attending: Tiera Goldsmith MD PCP: Tami Olivia Presenting Diagnosis/Chief Complaint: dyspnea Active Problem List: Active Hospital Problems Diagnosis Atrial flutter Resolved Hospital Problems No resolved problems to display. History of Present Illness: Rajan Faulkner is a 72 y.o. male PMH afib (on Xarelto, amiodarone, metoprolol until several weeks ago, patient unsure when he stopped taking them) and tachycardia induced cardiomyopathy, COPD, and depression, former alcohol use disorder. He says that he went off his meds because he felt fine and didnot think he needed to take so many medications. He also has financial concerns about cost of his meds. The patient presents with progressive dyspnea of at least 3 weeks duration and saw his cardiologistearlier on the monring of 12/11/23 and was found to be in atrial fibrillation again w/ rapid rates. When patient presented to the ED at [facility] in [place], [place] he was found to be in acute respiratory failure d/t acutely decompenasated CHF. He was tachycardic in the 150's and tachypneic and hypoxicw/ SPO2 77%. He was treated w/ BIPAP, iv lasix and bolused w/ iv diltiazem and put on diltiazem drip. [facility] cardi[facility] was consulted for transfer and patient was accepted for transfer to Dr. Gray for HARSH and cardioversion but d/t lack of bed availability, patient was hospitalized overnight at [facility]. He was begun on heparin drip and his cardizem dripped was weaned off and patient was put on lopressor 50 mg po q6h. He has now been transferred to [facility] cardiology for HARSH and DCC. 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 GERD (gastroesophageal reflux disease) Hypertension Lupus anticoagulant positive 11/05/2019 Mass of upper lobe of left lung 02/27/2021 Synovitis Surgical History/Problems: Past Surgical History: Procedure Laterality Date APPENDECTOMY IR THORACENTESIS LEFT 11/08/2021 IR Thoracentesis Left 11/08/2021 Ramírez Ramirez MD [facility] INTERVENTIONL RAD PRO BRONCHOSCOPY, DIAGNOSTIC N/A 03/29/2021 BRONCHOSCOPY, DIAGNOSTIC (WRVU 2.78) performed by Gilmer Gutiérrez MD at [facility] MAIN OR PRO BRONCHOSCOPY, DIAGNOSTIC N/A 02/08/2022 BRONCHOSCOPY, DIAGNOSTIC (WRVU 2.78) performed by Gilmer Gutiérrez MD at [facility] MAIN OR PRO BRONCHOSCOPY, DIAGNOSTIC N/A 05/18/2022 BRONCHOSCOPY, DIAGNOSTIC (WRVU 2.53) performed by Gilmer Gutiérrez MD at [facility] MAIN OR PRO CARDIOVERSION ELECTIVE ARRHYTHMIA EXTERNAL N/A 11/08/2022 CARDIOVERSION-ELECTIVE (WRVU 2) performed by Sekou Canales MD at [facility] MAIN OR PRO DECORTICATION, PULMONARY, TOTAL Left 05/18/2022 @THORACOTOMY,DECORTICATION, PULMONARY, TOTAL (WRVU 26.65) performed by Gilmer Gutiérrez MD [facility] MAIN OR PRO INJECTION ANES AGENT &/ STEROID INTERCOSTAL NERVE SINGLE LEVEL Left 03/29/2021 NERVE BLOCK, INTERCOSTAL NERVE (WRVU 1.18) performed by Gilmer Gutiérrez MD at [facility] MAIN OR PRO RECONSTRUCT INJURED CHEST Left 05/18/2022 @MAJOR RECONSTRUCTION, CHEST WALL (WRVU 22.51) performed by Gilmer Gutiérrez MD at [facility] MAIN OR PRO THORACOSCOPY SURG LOBECTOMY Left 03/29/2021 @THORACOSCOPY,SURGICAL,W\LOBECTOMY,TOTAL OR SEGMENTAL (WRVU 24.64) performed by Johana Gutiérrez MD at [facility] MAIN OR PRO THORACOSCOPY WITH BIOPSY OF PLEURA Left 02/08/2022 THORACOSCOPY; WITH BIOPSY(IES) OF PLEURA (WRVU 4.58) [facility] THORACOSCOPY WITH MEDIASTINAL AND REGIONAL LYMPHADENECTOMY 03/29/2021 @THORACOSCOPY, SURG; W/MEDIASTINAL& REGIONAL LYMPHADENECTOMY (WRVU 4.12) performed by Gilmer Gutiérrez MD at [facility] MAIN OR PRO THORACOSCOPY WITH WEDGE RESECTION AND ANATOMIC LUNG RESECTN Left 03/29/2021 @THORACOSCOPY, SURG; W/DX WEDGE RESC W/ANATOMIC LUNG RESC (WRVU 3) performed by Johana Gutiérrez MD at [facility] MAIN OR Significant Family History: Family History Problem Relation Age of Onset Myocardial Infarction Father Social History: Social History Socioeconomic History Marital status: Spouse name: Not on file Number of children: Not on file Years of education: Not on file Highest education level: Not on file Occupational History Not on file Tobacco Use Smoking status: Former Types: Cigarettes Smokeless tobacco: Never Tobacco comments: 1 ppd for the past year Vaping Use Vaping status: Never Used Substance and Sexual Activity Alcohol use: Not Currently Drug use: Yes Types: Marijuana Comment: OCC Sexual activity: Not Currently Other Topics Concern Not on file Social History Narrative Not on file Social Determinants of Health Financial Resource Strain: Not on file Food Insecurity: Not on file Transportation Needs: Not on file Physical Activity: Not on file Intimate Partner Violence: Not At Risk (12/12/2023) IPV Inpatient Questions Prevent Contact with Others: no Feels Threatened by Someone: no Feels Unsafe at Home: no Physical Signs of Abuse Present: no Housing Stability: Not on file REVIEW OF SYSTEMS: Review of Systems Constitutional: Positive for fatigue. HENT: Negative. Eyes: Negative. Respiratory: Positive for shortness of breath and wheezing. Negative for chest tightness. Cardiovascular: Negative for chest pain, palpitations and leg swelling. Gastrointestinal: Negative. Endocrine: Negative. Genitourinary: Negative. Musculoskeletal: Negative. Skin: Negative. Allergic/Immunologic: Negative. Neurological: Negative. Hematological: Negative. Psychiatric/Behavioral: Negative. Medications: Facility-Administered Medications Prior to Admission Medication Dose Route Frequency Provider Last Rate Last Admin sodium chloride 0.9% infusion 1,000 mL Intravenous Continuous Sekou Canales MD Medications Prior to Admission Medication Sig Dispense Refill Last Dose rivaroxaban (Xarelto) 15 mg tablet Take 1 tablet by mouth daily. 90 tablet 3 12/12/2023 metoprolol succinate XL (Toprol-XL) 25 mg ER 24 hr tablet Take 1 tablet by mouth daily. 30 tablet 12 12/12/2023 calcium carbonate-vitamin D3 600 mg-20 mcg (800 unit) Tablet Take 1 tablet by mouth daily. 12/12/2023 cyanocobalamin, Vitamin B-12, (Vitamin B-12) 1,000 mcg tablet Take 1,000 mcg by mouth daily. 12/12/2023 AMIOdarone (Paceron) 200 mg Tablet Take 1 tablet by mouth daily. 30 tablet 11 12/12/2023 Spiriva Respimat 2.5 mcg/actuation Mist 12/12/2023 bupropion HCl (WELLBUTRIN ORAL) Take 150 mg by mouth daily. 12/12/2023 tamsulosin (Flomax) 0.4 mg Capsule Take 0.4 mg by mouth daily. 12/12/2023 hydrOXYchloroQUINE (Plaquenil) 200 mg Tablet Take 200 mg by mouth Daily. 12/12/2023 albuterol sulfate (Proair Digihaler) 90 mcg/actuation aero powdr breath act w/sensor 4 times daily as needed. Past Week cholecalciferol, Vitamin D3, (Vitamin D3) 1,000 unit Tablet Take 1 tablet by mouth daily. 12/12/2023 acetaminophen (Tylenol) 500 mg Tablet Take 2 tablets by mouth every 6 hours. 30 tablet 1 More than a month [DISCONTINUED] sildenafiL (VIAGRA) 50 mg Tablet TAKE 1/2 TO 1 TABLET BY MOUTH 30 MINUTES PRIOR TO SEXUAL ACTIVITY NEEDED. MAXIMUM DAILY DOSE 2 [DISCONTINUED] UNABLE TO FIND Cbd gummies to help with smoking cessation. Allergies: Allergies Allergen Reactions Cat Dander Runny eyes and nose Dog Dander Runny eyes and nose PHYSICAL EXAM: Last set of vital signs: BP 125/79 (BP Location (NBP): Right arm, Patient Position: Lying) Pulse (!) 104 Temp 36.4 ??C (97.6 ??F) (Oral) Resp 18 Ht 172.7 cm (5' 8) Wt 81.3 kg (179 lb 3.2 oz) SpO2 93% BMI 27.25 kg/m?? Physical Exam Constitutional: Appearance: Normal appearance. He is normal weight. HENT: Head: Normocephalic and atraumatic. Nose: Nose normal. Mouth/Throat: Mouth: Mucous membranes are moist. Pharynx: Oropharynx is clear. Eyes: Extraocular Movements: Extraocular movements intact. Conjunctiva/sclera: Conjunctivae normal. Pupils: Pupils are equal, round, and reactive to light. Neck: Vascular: No carotid bruit. Cardiovascular: Rate and Rhythm: Tachycardia present. Rhythm irregular. Pulses: Normal pulses. Heart sounds: Normal heart sounds. Pulmonary: Effort: No respiratory distress. Breath sounds: Wheezing and rales present. Chest: Chest wall: No tenderness. Abdominal: General: Abdomen is flat. Bowel sounds are normal. Palpations: Abdomen is soft. Musculoskeletal: General: Normal range of motion. Cervical back: Normal range of motion and neck supple. No tenderness. Skin: General: Skin is warm and dry. Capillary Refill: Capillary refill takes less than 2 seconds. Neurological: General: No focal deficit present. Mental Status: He is alert. Mental status is at baseline. He is disoriented. Psychiatric: Mood and Affect: Mood normal. Behavior: Behavior normal. Thought Content: Thought content normal. Judgment: Judgment normal. Diagnostics: Bedside POCUS exam demonstrates diffuse bilateral B lines w/ lower lung zone predominance c/w increased interstitial edema Echo demonstrates severe LV dysfunction w/ MR, global, RV does not appear to be dilated and overallRV function appears to be preserved, IVC does not appear to be plethoric LABS: Recent Results (from the past 24 hour(s)) Basic Metabolic Panel Result Value Ref Range Glucose 114 65 - 199 mg/dL Blood Urea Nitrogen 21 (H) 10 - 20 mg/dL Creatinine 1.28 0.80 - 1.50 mg/dL Sodium 139 135 - 145 mMol/L Potassium 3.5 3.5 - 5.0 mMol/L Chloride 96 (L) 98 - 107 mMol/L Carbon Dioxide 20 (L) 22 - 31 mMol/L Anion Gap 23 (H) 5 - 15 mMol/L Calcium 9.9 8.5 - 10.5 mg/dL Est Glomerular Filtration Rate - Male 59 mL/min/1.73 m?? Magnesium Result Value Ref Range Magnesium 0.86 0.69 - 1.07 mMol/L Phosphorus Result Value Ref Range Phosphorus 3.6 2.5 - 4.5 mg/dL TSH Result Value Ref Range Thyroid Stimulating Hormone 0.85 0.27 - 4.20 mcIU/mL pro-Brain Natriuretic Peptide Result Value Ref Range NT-proBNP 6,282 (H) <=124 pg/mL Prothrombin Time Result Value Ref Range Prothrombin Time 13.2 (H) 9.4 - 12.5 sec International Normalization Ratio 1.2 <=4.9 Hepatic Function Panel Result Value Ref Range Albumin 4.5 3.2 - 5.2 g/dL Aspartate Aminotransferase Alanine Aminotransferase 14 0 - 55 unit/L Alkaline Phosphatase 71 40 - 130 unit/L Bilirubin, Total 1.3 <=1.3 mg/dL Bilirubin, Direct 0.4 (H) 0.0 - 0.3 mg/dL Protein, Total 8.2 (H) 6.1 - 8.0 g/dL APTT Result Value Ref Range Partial Thromboplastin Time 32 25 - 37 sec CBC (with Diff) Result Value Ref Range White Blood Cell 10.33 (H) 4.00 - 9.50 x10(3)/mcL Red Blood Cell 4.78 4.58 - 5.54 x10(6)/mcL Hemoglobin 15.1 13.7 - 16.5 g/dL Hematocrit 45.4 40.5 - 48.5 % Mean Cell Volume 95.0 (H) 82.9 - 93.1 fL Mean Cell Hemoglobin 31.6 27.5 - 32.1 pg Mean Cell Hemoglobin Concentration 33.3 32.0 - 35.7 g/dL Platelet 236 145 - 357 x10(3)/mcL Mean Platelet Volume 9.8 7.6 - 12.9 fL RDW Standard Deviation 50.2 (H) 36.0 - 45.0 fL RDW coefficient of variation 14.4 (H) 11.4 - 13.8 % NRBC% auto 0.0 % NRBC Absolute <0.01 <0.01 x10(3)/mcL Neutrophil % 76.7 % Neutrophil Absolute (ANC) - Automated 7.92 (H) 1.70 - 6.10 x10(3)/mcL Lymph % 11.5 % Lymph Absolute 1.19 0.90 - 3.20 x10(3)/mcL Monocyte % 11.2 % Monocyte Absolute 1.16 (H) 0.30 - 0.90 x10(3)/mcL Eos % 0.0 % Eos Absolute <0.04 0.00 - 0.40 x10(3)/mcL Basophil % 0.4 % Baso Absolute 0.04 0.00 - 0.10 x10(3)/mcL Immature Gran % 0.2 % Immature Gran Absolute <0.04 0.00 - 0.04 x10(3)/mcL ASSESSMENT: Atrial flutter/atrial fibrillation: currently appears to be atrial flutter at rates in the 150's Acute on chronic HFrEF COPD TREATMENT PLAN: Will continue metoprolol, I have reordered his prior dose of Toprol XL but also have given him someiv and po lopressor acutely to control his rapid rates, continue Xarelto (will give dose tonight), make him NPO after midnight for HARSH and DCC tomorrow. Patient needs to maintain compliance w/ use ofhis meds. He understands this now. I have put him on scheduled iv lasix for his acute CHF and added spironolactone Continue home meds for his COPD (Spiriva, albuterol prn). Provider: Ning Bolivar MD Provider #: [id number] 12/13/2023 documented in this encounter Nursing Notes * Clark Cuello RN - 12/13/2023 11:20 AM EDT 1120 DCCV not preformed do to findings of HARSH documented in this encounter Miscellaneous Notes * Care Management Discharge - Shayy Graham RN - 12/16/2023 2:32 PM EDT CARE MANAGEMENT FINAL DISCHARGE NOTE Chart reviewed, care reviewed with primary team and at interdisciplinary rounds. Patient is medically ready for discharge to home with his significant other via private vehicle. Needs for Transition of Care: Plan for discharge is: Home w/o Services Outpatient Agency/Support Group Needs: None Transportation: family or friend will provide Functional status prior to admission: Assistive Equipment Home Environment: Others in the home: significant other, pet(s), alone (Pt owns his own home but often stays with his SO or SO stays with him. Pt also has a cat named Amalia). Current Living Arrangements: home/apartment/condo. Accessibility Concerns:One level home, 2 steps porch and another 2 steps to front door. Pt has a wheelchair ramp that he takes from garage to main level of home.. Current Functional Ability: Independent DME used at home: cane - straight, oxygen, shower chair, respiratory supplies, walker - rollator, other (see comments) (Pt states he has a stair lift to get from his garage to the main floor of his home) DME Needed at Discharge: none Pt was interested in cutting his medication costs. RNCM spoke with [facility], original quote was over $600, but they were able to bring costs down to $330. Pt was notified and he states he isable to afford this cost. Pt will olive picker medications at [facility] on way home. Patient is insured through: Primary Insurance: [employer] MANAGED MEDICARE Payor: [employer] MANAGED MEDICARE / Plan: [employer] HMO MANAGED MEDICARE COMPLETE / Product Type: *No Producttype* / Secondary Insurance: N/A Prescription Coverage: Yes This plan was formulated with input from patient, and team. All are in agreement with plan. Shayy Graham RN * Plan of Care - Brittney Jackson RN - 12/16/2023 2:04 AM EDT OUTCOME EVALUATION NOTE: OUTCOME SUMMARY: Oriented times 4. Afib rates mostly 60s-100s. On room air. Continues to have soreness at site of previous L antecubital IV, though soreness is improving; using heat packs and tylenol. No reports of chest pain. PLAN MOVING FORWARD: Continue monitoring daily weights and I&Os. INDIVIDUALIZED FALL PREVENTION INTERVENTIONS: Patient-specific fall risk factors per assessment: [current deficits]: slightly unsteady gait. Assistance [level of assistance required for transfers and ambulation]: SBA Supervision [direct monitoring required during toileting and ADLs]: independent Surveillance [continuous indirect monitoring]: Telemetry Patient-specific fall prevention interventions for sensory deficits provided, if applicable: [X] N/A CPG GOAL OUTCOME EVALUATION: Problem: Adult Inpatient Plan of Care Goal: [...] Rhythm Outcome: Ongoing (Interventions Implemented as Appropriate) Problem: Adjustment to Illness (Heart Failure) Goal: Optimal Coping Outcome: Ongoing (Interventions Implemented as Appropriate) Problem: Cardiac Output Decreased (Heart Failure) Goal: Optimal Cardiac Output Outcome: Ongoing (Interventions Implemented as Appropriate) Problem: Dysrhythmia (Heart Failure) Goal: Stable Heart Rate and Rhythm Outcome: Ongoing (Interventions Implemented as Appropriate) Problem: Fluid Imbalance (Heart Failure) Goal: Fluid Balance Outcome: Ongoing (Interventions Implemented as Appropriate) Problem: Functional Ability Impaired (Heart Failure) Goal: Optimal Functional Ability Outcome: Ongoing (Interventions Implemented as Appropriate) Problem: Oral Intake Inadequate (Heart Failure) Goal: Optimal Nutrition Intake Outcome: Ongoing (Interventions Implemented as Appropriate) Problem: Respiratory Compromise (Heart Failure) Goal: Effective Oxygenation and Ventilation Outcome: Ongoing (Interventions Implemented as Appropriate) Problem: Sleep Disordered Breathing (Heart Failure) Goal: Effective Breathing Pattern During Sleep Outcome: Ongoing (Interventions Implemented as Appropriate) * Plan of Care - Ewa Palencia RN - 12/15/2023 5:44 PM EDT OUTCOME EVALUATION NOTE: OUTCOME SUMMARY: Pt is not in distress, HR 90-125 for the most of the day, medication doses adjusted to achieve results. PLAN MOVING FORWARD: Possible d/c home on saturday INDIVIDUALIZED FALL PREVENTION INTERVENTIONS: Patient-specific fall risk factors per assessment: [current deficits]: none Assistance [level of assistance required for transfers and ambulation]: independent Supervision [direct monitoring required during toileting and ADLs]: independent Surveillance [continuous indirect monitoring]: telemetry Patient-specific fall prevention interventions for sensory deficits provided, if applicable: CPG GOAL OUTCOME EVALUATION: ongoing * Plan of Care - Brittney Jackson RN - 12/15/2023 12:59 AM EDT OUTCOME EVALUATION NOTE: OUTCOME SUMMARY: Oriented times 4. VS stable. Afib rates 70s-100s w/ occasional PVCs. Breathing comfortably on room air. No reports of CP or other symptoms. PLAN MOVING FORWARD: Continue to monitor I&Os and daily weights. INDIVIDUALIZED FALL PREVENTION INTERVENTIONS: Patient-specific fall risk factors per assessment: [current deficits]: Unsteady gait, generalized weakness Assistance [level of assistance required for transfers and ambulation]: standby Supervision [direct monitoring required during toileting and ADLs]: standby Surveillance [continuous indirect monitoring]: Telemetry Patient-specific fall prevention interventions for sensory deficits provided, if applicable: [X] N/A CPG GOAL OUTCOME EVALUATION: Problem: Adult Inpatient Plan of Care Goal: [...] Rhythm Outcome: Ongoing (Interventions Implemented as Appropriate) Problem: Adjustment to Illness (Heart Failure) Goal: Optimal Coping Outcome: Ongoing (Interventions Implemented as Appropriate) Problem: Cardiac Output Decreased (Heart Failure) Goal: Optimal Cardiac Output Outcome: Ongoing (Interventions Implemented as Appropriate) Problem: Dysrhythmia (Heart Failure) Goal: Stable Heart Rate and Rhythm Outcome: Ongoing (Interventions Implemented as Appropriate) Problem: Fluid Imbalance (Heart Failure) Goal: Fluid Balance Outcome: Ongoing (Interventions Implemented as Appropriate) Problem: Functional Ability Impaired (Heart Failure) Goal: Optimal Functional Ability Outcome: Ongoing (Interventions Implemented as Appropriate) Problem: Oral Intake Inadequate (Heart Failure) Goal: Optimal Nutrition Intake Outcome: Ongoing (Interventions Implemented as Appropriate) Problem: Respiratory Compromise (Heart Failure) Goal: Effective Oxygenation and Ventilation Outcome: Ongoing (Interventions Implemented as Appropriate) Problem: Sleep Disordered Breathing (Heart Failure) Goal: Effective Breathing Pattern During Sleep Outcome: Ongoing (Interventions Implemented as Appropriate) * Plan of Care - Teresa Morelos RN - 12/14/2023 6:00 PM EDT Problem: Adult Inpatient Plan of Care Goal: [...] Rhythm Outcome: Ongoing (Interventions Implemented as Appropriate) Problem: Adjustment to Illness (Heart Failure) Goal: Optimal Coping Outcome: Ongoing (Interventions Implemented as Appropriate) Problem: Cardiac Output Decreased (Heart Failure) Goal: Optimal Cardiac Output Outcome: Ongoing (Interventions Implemented as Appropriate) Problem: Dysrhythmia (Heart Failure) Goal: Stable Heart Rate and Rhythm Outcome: Ongoing (Interventions Implemented as Appropriate) Problem: Fluid Imbalance (Heart Failure) Goal: Fluid Balance Outcome: Ongoing (Interventions Implemented as Appropriate) Problem: Functional Ability Impaired (Heart Failure) Goal: Optimal Functional Ability Outcome: Ongoing (Interventions Implemented as Appropriate) Problem: Oral Intake Inadequate (Heart Failure) Goal: Optimal Nutrition Intake Outcome: Ongoing (Interventions Implemented as Appropriate) Problem: Respiratory Compromise (Heart Failure) Goal: Effective Oxygenation and Ventilation Outcome: Ongoing (Interventions Implemented as Appropriate) Problem: Sleep Disordered Breathing (Heart Failure) Goal: Effective Breathing Pattern During Sleep Outcome: Ongoing (Interventions Implemented as Appropriate) * Plan of Care - Brittney Jackson RN - 12/14/2023 5:24 AM EDT OUTCOME EVALUATION NOTE: OUTCOME SUMMARY: Oriented times 4. Afib on telemetry w/ rates mostly 90s-110s. On 2L O2. S.O. spent the night in patient's room. PLAN MOVING FORWARD: Continue to monitor daily weights and Is and Os, and monitor HR/response to cardiac meds. INDIVIDUALIZED FALL PREVENTION INTERVENTIONS: Patient-specific fall risk factors per assessment: [current deficits]: unfamiliar environment, mildgeneralized weakness Assistance [level of assistance required for transfers and ambulation]: Standby Supervision [direct monitoring required during toileting and ADLs]: independent Surveillance [continuous indirect monitoring]: Telemetry and pulse ox. Patient-specific fall prevention interventions for sensory deficits provided, if applicable: [X] N/A CPG GOAL OUTCOME EVALUATION: Problem: Adult Inpatient Plan of Care Goal: [...] Rhythm Outcome: Ongoing (Interventions Implemented as Appropriate) Problem: Adjustment to Illness (Heart Failure) Goal: Optimal Coping Outcome: Ongoing (Interventions Implemented as Appropriate) Problem: Cardiac Output Decreased (Heart Failure) Goal: Optimal Cardiac Output Outcome: Ongoing (Interventions Implemented as Appropriate) Problem: Dysrhythmia (Heart Failure) Goal: Stable Heart Rate and Rhythm Outcome: Ongoing (Interventions Implemented as Appropriate) Problem: Fluid Imbalance (Heart Failure) Goal: Fluid Balance Outcome: Ongoing (Interventions Implemented as Appropriate) Problem: Functional Ability Impaired (Heart Failure) Goal: Optimal Functional Ability Outcome: Ongoing (Interventions Implemented as Appropriate) Problem: Oral Intake Inadequate (Heart Failure) Goal: Optimal Nutrition Intake Outcome: Ongoing (Interventions Implemented as Appropriate) Problem: Respiratory Compromise (Heart Failure) Goal: Effective Oxygenation and Ventilation Outcome: Ongoing (Interventions Implemented as Appropriate) Problem: Sleep Disordered Breathing (Heart Failure) Goal: Effective Breathing Pattern During Sleep Outcome: Ongoing (Interventions Implemented as Appropriate) * Care Management - Debbie Lozano MSW - 12/13/2023 3:54 PM EDT Social Work Response to Consult Consult: Nursing consult to Social Work Ordered at: 12/13/23924 Reason for Consult: Financial resources Social Work Response: ELEMENTARY ELL TEACHER met with patient to provide support and follow up on social work consult.Patient shares that two of his medications - his blood thinner and one of his inhalers - are very expensive. Patient is interested in learning about assistance programs as the one inhaler alone costshim $800/month. Patient shares he goes to [facility] in [place] for the blood thinner and the inhaler because they are a bit cheaper. Per patient, he gets his other medications at [facility] in [place]. ELEMENTARY ELL TEACHER spoke with the Medication Assistance team and learned about two assistance programs for pt's inhalers, one for Breo and one for Spiriva. ELEMENTARY ELL TEACHER provided patient with applications for both programs and explained that his PCP would have to help him complete them. MIA also informed patient that his doctor would talk with him about options for his blood thinner. Patient appreciative of information and assistance and denies other social work needs at this time. Follow Up Needed: None at this time. Social work will remain available for support as needed. MIA Harley, [facility] Care Management, [phone] * Initial Assessments - Debbie Lozano MSW - 12/13/2023 2:23 PM EDT Office of Care Management Initial Assessment MIA Diallo reviewed record and discussed patient with Care Team. Source of Information: Team, bedside nurse, medical record, and Patient Debbie Lozano Introduced self/reviewed role; services accepted. 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 (Only good for 180 days) Patient states he has an AD at [facility] listing his SO Melania Leonard ([phone]) as decision maker. Patient also has a daughter, Karla Brown ([phone]), but says she is not listed on new AD's. Any patient receiving care in [place] must abide by [place] law. The hierarchy for surrogate decision making is: (a) Patient???s spouse or civil union partner unless there is a divorce proceeding, separation [...] (i) The agent with financial power of customer service advisor or a conservator appointed in accordance with RSA 464-A. (j) The guardian of the patient???s estate. Advance Care Planning: Attempt Cardiopulmonary Resuscitation - Inpatient <no information> -Advanced Directive: No, need to discuss (Pt would like to complete AD's while in the hospital, wants Melania Leonard to be his health care agent) Current Coping/Education/Information Needs: Pt shares he is waiting to talk to the team about next steps Current Functional Ability: unable to assess Functional Status Prior to Admission: Assistive Equipment Home Environment: Others in the home: significant other, pet(s), alone (Pt owns his own home but often stays with his SO or SO stays with him. Pt also has a cat named Amalia). Current Living Arrangements: home/apartment/condo. Accessibility Concerns:One level home, 2 steps porch and another 2 steps to front door. Pt has a wheelchair ramp that he takes from garage to main level of home.. In the last 12 months, was there a time when you were not able to pay the mortgage or rent on time?: (Need follow up) In the past 12 months, how many times have you moved where you were living?: 0 At any time in the past 12 months, were you homeless or living in a senior care (including now)?: No Resource / Environmental Concerns: Resource/Environmental Concerns: other (see comments) (Pt reports two of his medications are very expensive, states that he pays mon to get a better deal on those) Current DME: cane - straight, oxygen, shower chair, respiratory supplies, walker - rollator, other (see comments) (Pt states he has a stair lift to get from his garage to the main floor of his home) Home Address confirmed as: [address] [place] [id number] Social & Family Supports: Extended Emergency Contact Information Primary Emergency Contact: Melania Leonard Mobile Relation: Significant Other Current Care Provided by: self Provides Primary Care For: pet(s) Has an alternative caregiver been identified?: Pt's SO Melania Leonard is helping to care for pt's cat while he is in the hospital Caregiver if needed: significant other Quality of Family relationships: helpful, supportive Community Resources being provided currently: none Behavioral Health History: Patient reports history of depression. Pt takes Wellbutrin, shares that he finds this helpful Substance Use/Abuse listed: Social History Tobacco Use Smoking Status Former Types: Cigarettes Smokeless Tobacco Never Tobacco Comments [...] points: Addiction likely Other Pertinent/Service Specific Information: Patient reports he uses [facility] for oxygen and respiratory supplies. Pt also reports that he gets his two most expensive medications at [facility] in [place] and pays mon because it is cheaper. Health/Prescription Coverage: Primary Insurance: [facility] MANAGED MEDICARE Payor: [facility] MANAGED MEDICARE / Plan: [facility] MANAGED MEDICARE COMPLETE / Product Type: *No Producttype* / Secondary Insurance: N/A ; Prescription Coverage: Yes Preferred Pharmacy: [facility] [place], [place] - [address] [place] [id number] [place] Status: Patient is a : No Primary Care Provider confirmed: Tami Olivia [phone] Patient/Caregiver Goals of Treatment: Return home with SO Potential Needs for Transition of Care: unable to assess Agency Referrals: Pending hospital course Transportation: no concerns Transportation Anticipated: family or friend will provide Concerns to be Addressed: discharge planning Assessment: Patient is admitted to Cardiology service for atrial flutter. Pt is a 72 yo male who lives in a one level home in [place], [place]. Per patient, he plans to stay with his SO Melania Leonard at discharge. Patient reports that two of his medications are very expensive. One is an inhaler and costs about $800/month, and the other is a blood thinner. Patient states he gets most of his medications at [facility] in [place], but goes to [facility] in [place] for the inhaler and blood thinner. Patient shares he stopped drinking several years ago. Per patient he hasn't had alcohol in about three years and feels much more engaged with life. Patient also shares that he worked for [email or web address] for 38 years before retiring. Plan going forward: ELEMENTARY ELL TEACHER will look into medication assistance programs for pt. ELEMENTARY ELL TEACHER will also make referral for AD. Care Management team will continue to follow and assist with discharge planing and coordination of care as indicated. MIA Harley, [facility] Care Management, [phone] * Brief Op Note - Ronni Morales MD - 12/13/2023 11:29 AM EDT Preliminary HARSH Procedure Note: Patient Name: Rajan Faulkner : [id number] MR#: [id number] Case Date: 12/13/2023 Commissioning Manager: Surgeons and Role: * Srini Null MD - Primary * Ronni Morales MD - Fellow - Assisting * Jakob Hogan MD - Fellow - Assisting Preoperative diagnosis: typical aflutter Postoperative diagnosis: typical aflutter Procedure(s) performed: HARSH A time-out was conducted prior to the start of the procedure to verify the correct patient and procedure, procedure location, and all relevant critical information. Preliminary findings: Heavy smoke in the left atrial appendage, unable to rule out thrombus. Cardioversion was not performed. The patient tolerated the procedures smoothly and was transferred to PACU in stable condition. No evident early complications. Full report to follow. Ronni Morales MD documented in this encounter Plan of Treatment Upcoming Encounters Date Type Department Care Team (Late st Contact Info) Description 01/20/2024 10:40 AM EST Office Visit Cardiology at [address] [phone] Chrissy Zepeda APRN [facility] [place] [address] Scheduled Orders Name Type Priority Associated Diagnoses Order Schedule SURGICAL CASE REQUEST NO POSTOP PAIN: CARDIOVERSION-ELECTIVE (WRVU 2) Procedures Routine One Time for 1 Occurrences starting 12/13/2023 until 12/13/2023 Trans Echo (HARSH) with Cardioversion Echocardiography Routine Typical atrial flutter Expected: 01/15/2024, Expires: 07/16/2024 Digoxin level Lab Routine Typical atrial flutter Expected: 12/22/2023, Expires: 06/22/2024 Scheduled Procedures Name Priority Associated Diagnoses Date/Ti me CARDIOVERSION-ELECTIVE (WRVU 2) atrial flutter ELECTROPHYSIOLOGY PROCEDURE Persistent atrial fibrillation CARDIOVERSION-ELECTIVE (WRVU 2) persistent atrial fibrillation TRANSESOPHAGEAL ECHOCARDIOGR AM (WRVU 2.3) persistent atrial fibrillation Scheduled Referrals Name Type Priority Associated Diagnoses Orde r Schedule Referral to Cardiac Rehab Outpatient Referral Routine Congestive heart failure, unspecified HF chronicity, unspecified heart failure type Ordered: 12/16/2023 documented as of this encounter Procedures Procedure Name Priority Date/Time Associated Diagnosis Comments ECG SCAN 12/17/2023 12:00 AM EDT DIGOXIN LEVEL Routine 12/16/2023 7:43 AM EDT CBC (WITH DIFF) Routine 12/16/2023 2:16 AM EDT MAGNESIUM Routine 12/16/2023 2:16 AM EDT BASIC METABOLIC PANEL Routine 12/16/2023 2:16 AM EDT CBC (WITH DIFF) Routine 12/15/2023 2:31 AM EDT MAGNESIUM Routine 12/15/2023 2:31 AM EDT DIGOXIN LEVEL Routine 12/15/2023 2:31 AM EDT BASIC METABOLIC PANEL Routine 12/15/2023 2:31 AM EDT DIGOXIN LEVEL Routine 12/14/2023 8:08 AM EDT CBC (WITH DIFF) Routine 12/14/2023 3:02 AM EDT MAGNESIUM Routine 12/14/2023 3:02 AM EDT BASIC METABOLIC PANEL Routine 12/14/2023 3:02 AM EDT HARSH W LMTD SPECTRAL DOPPLER COLOR DOPPLER Routine 12/13/2023 12:02 PM EDT Typical atrial flutter Cardioversion Elective Arrhythmia External ([id number]) 12/13/2023 10:38 AM EDT typical aflutter HARSH complete wo contrast ([id number]) 12/13/2023 10:38 AM EDT typical aflutter ECHO COMPLETE W CONTRAST Routine 12/13/2023 9:18 AM EDT Typical atrial flutter Congestive heart failure, unspecified HF chronicity, unspecified heart failure type BASIC METABOLIC PANEL Routine 12/13/2023 7:55 AM EDT LIPID PANEL (REFLEX DIRECT LDL) Routine 12/13/2023 2:22 AM EDT XR CHEST PA AND LATERAL Routine 12/12/2023 10:47 PM EDT CBC (WITH DIFF) Routine 12/12/2023 8:42 PM EDT HC PARTIAL THROMBOPLASTIN TIME Routine 12/12/2023 8:41 PM EDT PROTHROMBIN TIME Routine 12/12/2023 8:41 PM EDT TSH Routine 12/12/2023 8:41 PM EDT PHOSPHORUS Routine 12/12/2023 8:41 PM EDT PRO-BRAIN NATRIURETIC PEPTIDE Routine 12/12/2023 8:41 PM EDT MAGNESIUM Routine 12/12/2023 8:41 PM EDT HEPATIC FUNCTION PANEL Routine 8:41 PM EDT BASIC METABOLIC PANEL Routine 12/12/2023 8:41 PM EDT EKG 12-LEAD STAT 12/12/2023 6:31 PM EDT Typical atrial flutter documented in this encounter Results * Scan Doc: ECG (12/17/2023 12:00 AM EDT) Narrative 12/17/2023 12:00 AM EDT Ordered by an unspecified provider. Scanning Provider MEDIA MGR SCAN EXT O RDR/RSLT * Digoxin level (12/16/2023 7:43 AM EDT) Pathologist [facility] Digoxin 1.0 0.8 - 2.0 mcg/L 12/16/2023 8:54 AM EDT [facility] Blood VENOUS BLOOD SPECIMEN / Unknown IP Care Team Draw / Unknown 12/16/2023 7:43 AM EDT 12/16/2023 8:06 AM EDT Layo Starr MD CHEMISTRY ORDERABLES [facility] [place] [address] * Magnesium (12/16/2023 2:16 AM EDT) [facility] Magnesium 0.92 0.69 - 1.07 mMol/L 12/16/2023 3:05 AM EDT [facility] Blood VENOUS BLOOD SPECIMEN / Unknown IP Care Team Draw / Unknown 12/16/2023 2:16 AM EDT 12/16/2023 2:35 AM EDT Layo Starr MD CHEMISTRY ORDERABLES [facility] [place] [address] * (ABNORMAL) CBC (with Diff) (12/16/2023 2:16 AM EDT) [facility] White Blood Cell 9.96(H) 4.00 - 9.50 x10(3)/mc L 12/16/2023 2:42 AM EDT [facility] Red Blood Cell 4.66 4.58 - 5.54 x10(6)/mc L 12/16/2023 2:42 AM EDT [facility] Hemoglobin 14.7 13.7 - 16.5 g/dL 12/16/2023 2:42 AM EDT [facility] Hematocrit 43.2 40.5 - 48.5 % 12/16/2023 2:42 AM [facility] Mean Cell Volume 92.7 82.9 - 93.1 fL 12/16/2023 2:42 AM [facility] Mean Cell Hemoglobin 31.5 27.5 - 32.1 pg 12/16/2023 2:42 AM [facility] Mean Cell Hemoglobin Concentration 34.0 32.0 - 35.7 g/dL 12/16/2023 2:42 AM [facility] Platelet 241 145 - 357 x10(3)/mc L 12/16/2023 2:42 AM [facility] Mean Platelet Volume 9.7 7.6 - 12.9 fL 12/16/2023 2:42 AM [facility] RDW Standard Deviation 46.5(H) 36.0 - 45.0 fL 12/16/2023 2:42 AM [facility] RDW coefficient of variation 13.8 11.4 - 13.8 % 12/16/2023 2:42 AM [facility] NRBC% auto 0.0 % 12/16/2023 2:42 AM [facility] NRBC Absolute <0.01 <0.01 x10(3)/mc L 12/16/2023 2:42 AM [facility] Neutrophil % 68.8 % 12/16/2023 2:42 AM [facility] Neutrophil Absolute (ANC) - Automated 6.85(H) 1.70 - 6.10 x10(3)/mc L 12/16/2023 2:42 AM [facility] Lymph % 18.0 % 12/16/2023 2:42 AM [facility] Lymph Absolute 1.79 0.90 - 3.20 x10(3)/mc L 12/16/2023 2:42 AM [facility] Monocyte % 11.4 % 12/16/2023 2:42 AM [facility] Monocyte Absolute 1.14(H) 0.30 - 0.90 x10(3)/mc L 12/16/2023 2:42 AM EDT [facility] Eos % 1.0 % 12/16/2023 2:42 AM EDT [facility] Eos Absolute 0.10 0.00 - 0.40 x10(3)/mc L 12/16/2023 2:42 AM EDT [facility] Basophil % 0.6 % 12/16/2023 2:42 AM EDT [facility] Baso Absolute 0.06 0.00 - 0.10 x10(3)/mc L 12/16/2023 2:42 AM EDT [facility] Immature Gran % 0.2 % 2:42 AM EDT [facility] Immature Gran Absolute <0.04 0.00 - 0.04 x10(3)/mc L 12/16/2023 2:42 AM EDT [facility] Blood VENOUS BLOOD SPECIMEN / Unknown IP Care Team Draw / Unknown 12/16/2023 2:16 AM EDT 12/16/2023 2:35 AM EDT Layo Starr MD HEMATOLOGY ORDERABLE S [facility] [place] [address] * (ABNORMAL) Basic Metabolic Panel (12/16/2023 2:16 AM EDT) Glucose 101 65 - 199 mg/dL 12/16/2023 3:05 AM EDT [facility] Comment:Glucose Concentratio n >=200 mg/dL plus symptoms is consistent with Diabetes Mellitus. Blood Urea Nitrogen 25(H) 10 - 20 mg/dL 12/16/2023 3:05 AM EDT [facility] Creatinine 1.18 0.80 - 1.50 mg/dL 12/16/2023 3:05 AM EDT [facility] Sodium 137 135 - 145 mMol/L 12/16/2023 3:[facility] Potassium 3.8 3.5 - 5.0 mMol/L 12/16/2023 3:05 AM [facility] Chloride 100 98 - 107 mMol/L 12/16/2023 3:[facility] Carbon Dioxide 25 22 - 31 mMol/L 12/16/2023 3:05 [facility] Anion Gap 12 5 - 15 mMol/L 12/16/2023 3:05 AM [facility] Calcium 9.3 8.5 - 10.5 mg/dL 12/16/2023 3:05 AM [facility] Est Glomerular Filtration Rate - Male 65 mL/min/1. 73 m?? 12/16/2023 3:05 AM [facility] Comment: This patient's estimated [...] urine creatinine clearance. Assignment of CKD stage 1 - 5 for patients with an eGFR near the transition point between stages may be based on clinical assessment of muscle mass and symptoms in addition to eGFR. Link: eGFR Calculator [employer] Blood VENOUS BLOOD SPECIMEN / Unknown IP Care Team Draw / Unknown 12/16/2023 2:16 AM EDT 12/16/2023 2:35 AM EDT Layo Starr MD CHEMISTRY ORDERABLES [facility] [place] [address] * Magnesium (12/15/2023 2:31 AM EDT) Magnesium 1.03 0.69 - 1.07 mMol/L 12/15/2023 3:20 AM EDT [facility] Blood VENOUS BLOOD SPECIMEN / Unknown IP Care Team Draw / Unknown 12/15/2023 2:31 AM EDT 12/15/2023 2:47 AM EDT Layo Starr MD CHEMISTRY ORDERABLES [facility] [place] [address] * (ABNORMAL) CBC (with Diff) (12/15/2023 2:31 AM EDT) White Blood Cell 9.33 4.00 - 9.50 x10(3)/mc L 12/15/2023 2:56 AM EDT [facility] Red Blood Cell 4.54(L) 4.58 - 5.54 x10(6)/mc L 12/15/2023 2:56 AM EDT [facility] Hemoglobin 14.2 13.7 - 16.5 g/dL 12/15/2023 2:56 AM EDT [facility] Hematocrit 42.5 40.5 - 48.5 % 12/15/2023 2:56 AM EDT [facility] Mean Cell Volume 93.6(H) 82.9 - 93.1 fL 12/15/2023 2:56 AM EDT [facility] Mean Cell Hemoglobin 31.3 27.5 - 32.1 pg 12/15/2023 2:56 AM EDT [facility] Mean Cell Hemoglobin Concentration 33.4 32.0 - 35.7 g/dL 12/15/2023 2:56 AM EDT [facility] Platelet 223 145 - 357 x10(3)/mc L 12/15/2023 2:56 AM EDT [facility] Mean Platelet Volume 9.8 7.6 - 12.9 fL 12/15/2023 2:56 AM EDT [facility] RDW Standard Deviation 48.0(H) 36.0 - 45.0 fL 12/15/2023 2:56 AM EDT [facility] RDW coefficient of variation 13.9(H) 11.4 - 13.8 % 12/15/2023 2:56 AM [facility] NRBC% auto 0.0 % 12/15/2023 2:56 AM [facility] NRBC Absolute <0.01 <0.01 x10(3)/mc L 12/15/2023 2:56 AM [facility] Neutrophil % 70.1 % 12/15/2023 2:56 AM [facility] Neutrophil Absolute (ANC) - Automated 6.54(H) 1.70 - 6.10 x10(3)/mc L 12/15/2023 2:56 AM [facility] Lymph % 14.6 % 12/15/2023 2:56 AM [facility] Lymph Absolute 1.36 0.90 - 3.20 x10(3)/mc L 12/15/2023 2:56 AM [facility] Monocyte % 13.5 % 12/15/2023 2:56 AM [facility] Monocyte Absolute 1.26(H) 0.30 - 0.90 x10(3)/mc L 12/15/2023 2:56 AM [facility] Eos % 1.1 % 12/15/2023 2:56 AM [facility] Eos Absolute 0.10 0.00 - 0.40 x10(3)/mc L 12/15/2023 2:56 AM [facility] Basophil % 0.5 % 12/15/2023 2:56 AM [facility] Baso Absolute 0.05 0.00 - 0.10 x10(3)/mc L 12/15/2023 2:56 AM [facility] Immature Gran % 0.2 % 2:56 AM [facility] Immature Gran Absolute <0.04 0.00 - 0.04 x10(3)/mc L 12/15/2023 2:56 AM EDT [facility] Blood VENOUS BLOOD SPECIMEN / Unknown IP Care Team Draw / Unknown 12/15/2023 2:31 AM EDT 12/15/2023 2:47 AM EDT Layo Starr MD HEMATOLOGY ORDERABLE S [facility] [place] [address] * (ABNORMAL) Basic Metabolic Panel (12/15/2023 2:31 AM EDT) Glucose 109 65 - 199 mg/dL 12/15/2023 3:20 AM EDT [facility] Comment:Glucose Concentratio n >=200 mg/dL plus symptoms is consistent with Diabetes Mellitus. Blood Urea Nitrogen 27(H) 10 - 20 mg/dL 12/15/2023 3:20 AM [facility] Creatinine 1.16 0.80 - 1.50 mg/dL 12/15/2023 3:20 AM [facility] Sodium 138 135 - 145 mMol/L 12/15/2023 3:20 AM [facility] Potassium 3.7 3.5 - 5.0 mMol/L 12/15/2023 3:20 AM [facility] Chloride 100 98 - 107 mMol/L 12/15/2023 3:20 AM [facility] Carbon Dioxide 27 22 - 31 mMol/L 12/15/2023 3:20 AM [facility] Anion Gap 11 5 - 15 mMol/L 12/15/2023 3:20 AM [facility] Calcium 9.2 8.5 - 10.5 mg/dL 12/15/2023 3:20 AM [facility] Est Glomerular Filtration Rate - Male 67 mL/min/1. 73 m?? 12/15/2023 3:20 AM [facility] Comment: This patient's estimated GFR was calculated using the 2021 CKD-EPI equation. The estimated GFR can vary [...] urine creatinine clearance. Assignment of CKD stage 1 - 5 for patients with an eGFR near the transition point between stages may be based on clinical assessment of muscle mass and symptoms in addition to eGFR. Link: eGFR Calculator [employer] Blood VENOUS BLOOD SPECIMEN / Unknown IP Care Team Draw / Unknown 12/15/2023 2:31 AM EDT 12/15/2023 2:47 AM EDT Layo Starr MD CHEMISTRY ORDERABLES Performing Organization Address City/[facility]/ZIP Co de Phone Number [facility] [place] [address] * Digoxin level (12/15/2023 2:31 AM EDT) Digoxin 1.0 0.8 - 2.0 mcg/L 12/15/2023 3:16 AM EDT [facility] Blood VENOUS BLOOD SPECIMEN / Unknown IP Care Team Draw / Unknown 12/15/2023 2:31 AM EDT 12/15/2023 2:47 AM EDT Layo Starr MD CHEMISTRY ORDERABLES Performing Organization Address City/[facility]/ZIP Co de Phone Number [facility] [place] [address] * Digoxin level (12/14/2023 8:08 AM EDT) Digoxin 0.9 0.8 - 2.0 mcg/L 12/14/2023 9:05 AM EDT [facility] Blood VENOUS BLOOD SPECIMEN / Unknown IP Care Team Draw / Unknown 12/14/2023 8:08 AM EDT 12/14/2023 8:25 AM EDT Layo Starr MD CHEMISTRY ORDERABLES [facility] [place] [address] * Magnesium (12/14/2023 3:02 AM EDT) [facility] Magnesium 0.74 0.69 - 1.07 mMol/L 12/14/2023 3:52 AM EDT [facility] Blood VENOUS BLOOD SPECIMEN / Unknown IP Care Team Draw / Unknown 12/14/2023 3:02 AM EDT 12/14/2023 3:22 AM EDT Layo Walter FLORES CHEMISTRY ORDERABLES Performing Organization Address [facility]/ZIP Co de Phone Number [facility] [place] [address] * (ABNORMAL) CBC (with Diff) (12/14/2023 3:02 AM EDT) [facility] White Blood Cell 12.68(H) 4.00 - 9.50 x10(3)/mc L 12/14/2023 3:[facility] Red Blood Cell 4.49(L) 4.58 - 5.54 x10(6)/mc L 12/14/2023 3:31 AM [facility] Hemoglobin 13.9 13.7 - 16.5 g/dL 12/14/2023 3:31 AM [facility] Hematocrit 42.4 40.5 - 48.5 % 12/14/2023 3:31 AM EDT [facility] Mean Cell Volume 94.4(H) 82.9 - 93.1 fL 12/14/2023 3:31 AM [facility] Mean Cell Hemoglobin 31.0 27.5 - 32.1 pg 12/14/2023 3:31 AM [facility] Mean Cell Hemoglobin Concentration 32.8 32.0 - 35.7 g/dL 12/14/2023 3:31 AM [facility] Platelet 214 145 - 357 x10(3)/mc L 12/14/2023 3:31 AM [facility] Mean Platelet Volume 9.9 7.6 - 12.9 fL 12/14/2023 3:31 AM [facility] RDW Standard Deviation 48.6(H) 36.0 - 45.0 fL 12/14/2023 3:31 AM [facility] RDW coefficient of variation 13.9(H) 11.4 - 13.8 % 12/14/2023 3:31 AM [facility] NRBC% auto 0.0 % 12/14/2023 3:31 AM [facility] NRBC Absolute <0.01 <0.01 x10(3)/mc L 12/14/2023 3:31 AM [facility] Neutrophil % 79.3 % 12/14/2023 3:31 AM [facility] Neutrophil Absolute (ANC) - Automated 10.06(H) 1.70 - 6.10 x10(3)/mc L 12/14/2023 3:31 AM [facility] Lymph % 8.5 % 12/14/2023 3:31 AM [facility] Lymph Absolute 1.08 0.90 - 3.20 x10(3)/mc L 12/14/2023 3:31 AM [facility] Monocyte % 11.3 % 12/14/2023 3:31 AM [facility] Monocyte Absolute 1.43(H) 0.30 - 0.90 x10(3)/mc L 12/14/2023 3:31 AM [facility] Eos % 0.1 % 12/14/2023 3:31 AM [facility] Eos Absolute <0.04 0.00 - 0.40 x10(3)/mc L 12/14/2023 3:31 AM [facility] Basophil % 0.4 % 12/14/2023 3:31 AM [facility] Baso Absolute 0.05 0.00 - 0.10 x10(3)/mc L 12/14/2023 3:31 AM EDT [facility] Immature Gran % 0.4 % 3:31 AM EDT [facility] Immature Gran Absolute 0.05(H) 0.00 - 0.04 x10(3)/mc L 12/14/2023 3:31 AM EDT [facility] Blood VENOUS BLOOD SPECIMEN / Unknown IP Care Team Draw / Unknown 12/14/2023 3:02 AM EDT 12/14/2023 3:22 AM EDT Layo Starr MD HEMATOLOGY ORDERABLE S [facility] [place] [address] * (ABNORMAL) Basic Metabolic Panel (12/14/2023 3:02 AM EDT) Glucose 107 65 - 199 mg/dL 12/14/2023 3:52 AM EDT [facility] Comment:Glucose Concentratio n >=200 mg/dL plus symptoms is consistent with Diabetes Mellitus. Blood Urea Nitrogen 31(H) 10 - 20 mg/dL 12/14/2023 3:52 AM EDT [facility] Creatinine 1.33 0.80 - 1.50 mg/dL 12/14/2023 3:52 AM EDT [facility] Sodium 137 135 - 145 mMol/L 12/14/2023 3:52 AM EDT [facility] Potassium 3.2(L) 3.5 - 5.0 mMol/L 12/14/2023 3:52 AM EDT [facility] Chloride 97(L) 98 - 107 mMol/L 12/14/2023 3:52 [facility] Carbon Dioxide 28 22 - 31 mMol/L 12/14/2023 3:52 AM EDT [facility] Anion Gap 12 5 - 15 mMol/L 12/14/2023 3:52 AM EDT [facility] Calcium 9.3 8.5 - 10.5 mg/dL 12/14/2023 3:52 AM EDT [facility] Est Glomerular Filtration Rate - Male 56 mL/min/1. 73 m?? 12/14/2023 3:52 AM EDT [facility] Comment: This patient's estimated [...] urine creatinine clearance. Assignment of CKD stage 1 - 5 for patients with an eGFR near the transition point between stages may be based on clinical assessment of muscle mass and symptoms in addition to eGFR. Link: eGFR Calculator [employer] Blood VENOUS BLOOD SPECIMEN / Unknown IP Care Team Draw / Unknown 12/14/2023 3:02 AM EDT 12/14/2023 3:22 AM EDT Layo Starr MD CHEMISTRY ORDERABLES Performing Organization Address City/State/[facility] Co de Phone Number [facility] [place] [address] * HARSH W LMTD SPECTRAL DOPPLER COLOR DOPPLER (12/13/2023 12:02 PM EDT) Anatomical Region Laterality Modality Cardiac Other 12/13/2023 10:1 2 AM EDT Narrative 12/13/2023 12:29 PM EDT ? Transesophageal Echocardiogram Report Name: LUCIE, ARJAN W ?Study Date: 12/13/2023 10:12 AM ? Patient Location: ^[facility]2^A : 1950 ? Account: [id number] Age: 72 yrs Gender: Male Ordering Physician: LAYO STARR Referring Physician: DEBORAH CHA Performed By: Ronni Morales MD Reason For Study: pre cardioversion Exam Location: [facility]. Interpretation Summary 1. There is heavy smoke in the left atrial appendage and spontaneous contrast in the left atria. Low left atrial appendage velocities. Cardioversion was not performed. 2. There is moderate global LV dysfunction with a visually estimated LVEF of 25- 30% with beat to beat variability. 3. Normal RV size and function. 4. There is mild to moderate mitral regurgitation with beat to beat variability. No other hemodynamically significant valve disease. 5. Compared to the TTE performed 12/13/2023, findings are similar. Procedure There were no complications during the procedure. After suitable sedation by anesthesia, the probe was inserted without difficulty. A complete HARSH study was performed under deep sedation with anesthesia provided by the anesthesiology service. Standard views were obtained in the transgastric, mid esophageal, and basal planes using a multiplane transesophageal echo probe. Additional evaluation with color flow Doppler and limited spectral Doppler was performed. Informed consent from the patient in writing. The risks and benefits of the procedure were explained in detail to the patient, including but not limited to the risk of aspiration, dysphagia, and esophageal perforation. Patient agreed to proceed. Left Ventricle Left ventricle is of normal size. Left ventricular systolic function is moderately reduced. Left ventricular ejection fraction is estimated visually at 25-30%. Right Ventricle The right ventricle is of normal size. Right ventricular systolic function is normal. Left Atrium Spontaneous contrast is present in the left atrium and in the left atrial appendage. The left atrium is mildly dilated. There is no evidence for a patent foramen ovale. Pulsed wave Doppler of the left atrial appendage demonstrates low emptying velocity which suggests elevated thrombotic risk. Right Atrium The right atrium is mildly dilated. Aortic Valve The aortic valve is tricuspid. 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 There is no aortic stenosis. There is no aortic regurgitation. Mitral Valve The mitral valve is structurally normal. There is no mitral stenosis. There is mild to moderate mitral regurgitation. Tricuspid Valve The tricuspid valve is structurally normal. There is no tricuspid regurgitation. Pulmonic Valve The pulmonic valve appears to be structurally and functionally normal. Great Arteries The aortic root is of normal size. No abnormalities are identified. Ascending aorta is normal in size. Ascending Plaque grade 3: (atheroma </= 5mm). Pericardium/Pleural There is no pericardial effusion. ? 2D Measurements ?Ao root diam: 3.8 cm ?asc Aorta Diam: 3.5 cm Doppler MR ERO: 0.39 cm2 MR PISA radius: 0.68 cm MR volume: 26.8 ml Procedure Note Srini Null MD - 12/13/2023 Transesophageal Echocardiogram Report Name: RAJAN FAULKNER Study Date: 0:12 AM Patient Location:[facility]A : 1950 Account: [id number] Age: 72 yrs Gender: Male Ordering Physician: LAYO STARR Referring Physician: DEBORAH CHA Performed By: Ronni Morales MD Reason For Study: pre cardioversion Exam Location: [facility]. Interpretation Summary 1. There is heavy smoke in the left atrial appendage and spontaneouscontrast in the left atria. Low left atrial appendage velocities. Cardioversion wasnot performed. 2. There is moderate global LV dysfunction with a visually estimated LVEFof 25- 30% with beat to beat variability. 3. Normal RV size and function. 4. There is mild to moderate mitral regurgitation with beat to beatvariability. No other hemodynamically significant valve disease. 5. Compared to the TTE performed 12/13/2023, findings are similar. Procedure There were no complications during the procedure. After suitable sedationby anesthesia, the probe was inserted without difficulty. A complete TEEstudy was performed under deep sedation with anesthesia provided by theanesthesiology service. Standard views were obtained in the transgastric, mid esophageal,and basal planes using a multiplane transesophageal echo probe. Additionalevaluation with color flow Doppler and limited spectral Doppler was performed.Informed consent from the patient in writing. The risks and benefits of theprocedure were explained in detail to the patient, including but not limited to the riskof aspiration, dysphagia, and esophageal perforation. Patient agreed toproceed. Left Ventricle Left ventricle is of normal size. Left ventricular systolic function ismoderately reduced. Left ventricular ejection fraction is estimated visually at25-30%. Right Ventricle The right ventricle is of normal size. Right ventricular systolic functionis normal. Left Atrium Spontaneous contrast is present in the left atrium and in the leftatrial appendage. The left atrium is mildly dilated. There is no evidence for apatent foramen ovale. Pulsed wave Doppler of the left atrial appendagedemonstrates low emptying velocity which suggests elevated thrombotic risk. Right Atrium The right atrium is mildly dilated. Aortic Valve The aortic valve is tricuspid. Filamentous strands on the aortic valvesuggest the presence of a Lambl's excrescence. There is no aortic stenosis. There isno aortic regurgitation. Mitral Valve The mitral valve is structurally normal. There is no mitral stenosis.There is mild to moderate mitral regurgitation. Tricuspid Valve The tricuspid valve is structurally normal. There is no tricuspidregurgitation. Pulmonic Valve The pulmonic valve appears to be structurally and functionally normal. Great Arteries The aortic root is of normal size. No abnormalities are identified.Ascending aorta is normal in size. Ascending Plaque grade 3: (atheroma </= 5mm). Pericardium/Pleural There is no pericardial effusion. 2D Measurements Ao root diam: 3.8 cm asc Aorta Diam: 3.5 cm Doppler MR ERO: 0.39 cm2 MR PISA radius: 0.68 cm MR volume: 26.8 ml Layo Starr MD ECHO ORDERABLES * ECHO COMPLETE W CONTRAST (12/13/2023 9:18 AM EDT) Anatomical Region Laterality Modality Cardiac Other 12/13/2023 7:07 AM EDT Narrative 12/13/2023 9:27 AM EDT [address] [place] [address] ? Echocardiogram Report Name: RAJAN FAULKNER W ?Study Date: 12/13/2023 07:07 AMBP: 121/89 mmHg ? Patient Location: ^471^A : 1950 ? Height: 173 cm ? Account: [id number] Age: 72 yrs ? Weight: 81 kg Gender: Male ?BSA: 1.9 m2 Ordering Physician: NING BOLIVAR Referring Physician: DEBORAH CHA Performed By: CONNOR Liao Reason For Study: atrial flutter,chf Exam Location: [facility]. Interpretation Summary Left ventricle is of normal size. Wall thickness is mildly increased. The left ventricular ejection fraction is 29% by Braun's biplane. There is global hypokinesis with regional variation. The right ventricle is probably normal in size. Right ventricular systolic function is mildly decreased. There is mild to moderate mitral regurgitation. Procedure Complete-46703. Image enhancement Definity was used for left ventricular opacification. Suboptimal quality. Left Ventricle Left ventricle is of normal size. Wall thickness is mildly increased. The left ventricular ejection fraction is 29% by Braun's biplane. There is global hypokinesis with regional variation. Right Ventricle The right ventricle is not well visualized. The right ventricle is probably normal in size. Right ventricular systolic function is mildly decreased. Left Atrium The left atrium is mildly dilated. No abnormality of the interatrial septum is identified. Right Atrium The right atrium is mildly dilated. Aortic Valve The aortic valve is tricuspid. The aortic valve is mildly thickened. There is calcification of the aortic annulus. There is no aortic stenosis. There is trace aortic regurgitation. Mitral Valve The mitral valve is structurally normal. There is mitral annular calcification. There is mild to moderate mitral regurgitation. Tricuspid Valve The tricuspid valve is structurally and functionally normal. There is mild tricuspid regurgitation. Pulmonic Valve The pulmonic valve appears to be structurally and functionally normal. There is trace pulmonic valve regurgitation. Great Arteries The diameter at the level of the sinuses of Valsalva is 3.8 cm. The maximum diameter of the proximal ascending aorta is 3.3 cm. No abnormalities of the pulmonary artery are identified. Venous Inferior vena cava is not well visualized. Pericardium/Pleural The pericardium appears normal. Hemodynamics Unable to assess diastolic function. Ejection Fraction ?2D Measurements ? Volumes EF(MOD-bp): 29.6 % ?IVSd: 1.2 cm ? LAV(MOD- bp) Indexed: ?LVIDd: 5.2 cm ?LVIDs: 4.2 cm ?38.9 ml/m2 ?LVPWd: 1.3 cm ?RA A4Cs_phl: 23.6 cm2 ? EDV(MOD-bp) Indexed: ?RWT: 0.50 {ratio} ?LV mass(C)d: 266.9 grams ? 66.5 ml/m2 ?LV mass(C)dI: 136.9 grams/m2 ?? ESV(MOD- bp) Indexed: ?Ao root diam: 3.8 cm ? 46.8 ml/m2 ?Ao root diam index: 2.0 ?SV(LVOT): 36.4 ml ?asc Aorta Diam: 3.3 cm ?LVOT diam: 2.2 cm ?SI(LVOT): 18.7 ml/m2 ?TAPSE_phl: 1.9 cm Doppler LV V1 VTI: 9.9 cm Ao V2 VTI: 20.5 cm Ao Max Deepak: 138.3 cm/sec Ao valve max: 7.8 mmHg Ao valve mean: 2.9 mmHg SENDY(I,D): 1.8 cm2 Dimensionless index Aov: 0.48 Procedure Note Emre Corbett MD - 12/13/2023 [address] [place] [address] Echocardiogram Report Name: RAJAN FAULKNER Study Date: 407:07 AMBP: 121/89 mmHg Patient Location:[facility]^A : 1950 Height: 173 cm Account: [id number] Age: 72 yrs Weight: 81 kg Gender: Male BSA: 1.9 m2 Ordering Physician: NING BOLIVAR Referring Physician: DEBORAH CHA Performed By: CONNOR Liao Reason For Study: atrial flutter,chf Exam Location: [facility]. Interpretation Summary Left ventricle is of normal size. Wall thickness is mildly increased. Theleft ventricular ejection fraction is 29% by Braun's biplane. There isglobal hypokinesis with regional variation. The right ventricle is probably normal in size. Right ventricularsystolic function is mildly decreased. There is mild to moderate mitral regurgitation. Procedure Complete-[id number]. Image enhancement Definity was used for left ventricular opacification. Suboptimal quality. Left Ventricle Left ventricle is of normal size. Wall thickness is mildly increased. Theleft ventricular ejection fraction is 29% by Braun's biplane. There isglobal hypokinesis with regional variation. Right Ventricle The right ventricle is not well visualized. The right ventricle isprobably normal in size. Right ventricular systolic function is mildly decreased. Left Atrium The left atrium is mildly dilated. No abnormality of the interatrialseptum is identified. Right Atrium The right atrium is mildly dilated. Aortic Valve The aortic valve is tricuspid. The aortic valve is mildly thickened. Thereis calcification of the aortic annulus. There is no aortic stenosis. There istrace aortic regurgitation. Mitral Valve The mitral valve is structurally normal. There is mitral annularcalcification. There is mild to moderate mitral regurgitation. Tricuspid Valve The tricuspid valve is structurally and functionally normal. There ismild tricuspid regurgitation. Pulmonic Valve The pulmonic valve appears to be structurally and functionally normal.There is trace pulmonic valve regurgitation. Great Arteries The diameter at the level of the sinuses of Valsalva is 3.8 cm. Themaximum diameter of the proximal ascending aorta is 3.3 cm. No abnormalities ofthe pulmonary artery are identified. Venous Inferior vena cava is not well visualized. Pericardium/Pleural The pericardium appears normal. Hemodynamics Unable to assess diastolic function. Ejection Fraction 2D Measurements Volumes EF(MOD-bp): 29.6 % IVSd: 1.2 cm LAV(MOD-bp)Indexed: LVIDd: 5.2 cm LVIDs: 4.2 cm 38.9 ml/m2 LVPWd: 1.3 cm RA A4Cs_phl: 23.6cm2 EDV(MOD-bp)Indexed: RWT: 0.50 {ratio} LV mass(C)d: 266.9 grams 66.5 ml/m2 LV mass(C)dI: 136.9 grams/m2 ESV(MOD-bp)Indexed: Ao root diam: 3.8 cm 46.8 ml/m2 Ao root diam index: 2.0 SV(LVOT): 36.4ml asc Aorta Diam: 3.3 cm LVOT diam: 2.2 cm SI(LVOT): 18.7ml/m2 TAPSE_phl: 1.9 cm Doppler LV V1 VTI: 9.9 cm Ao V2 VTI: 20.5 cm Ao Max Deepak: 138.3 cm/sec Ao valve max: 7.8 mmHg Ao valve mean: 2.9 mmHg SENDY(I,D): 1.8 cm2 Dimensionless index Aov: 0.48 Ning Bolivar MD ECHO ORDERAB LES * (ABNORMAL) Basic Metabolic Panel (12/13/2023 7:55 AM EDT) Glucose 106 65 - 199 mg/dL 12/13/2023 8:38 AM [facility] Comment:Glucose Concentratio n >=200 mg/dL plus symptoms is consistent with Diabetes Mellitus. Blood Urea Nitrogen 25(H) 10 - 20 mg/dL 12/13/2023 8:38 AM [facility] [facility] Creatinine 1.31 0.80 - 1.50 mg/dL 12/13/2023 8:38 AM [facility] Sodium 140 135 - 145 mMol/L 12/13/2023 8:38 AM [facility] Potassium 3.3(L) 3.5 - 5.0 mMol/L 12/13/2023 8:38 AM [facility] Chloride 99 98 - 107 mMol/L 12/13/2023 8:38 AM [facility] Carbon Dioxide 28 22 - 31 mMol/L 12/13/2023 8:38 AM [facility] Anion Gap 13 5 - 15 mMol/L 12/13/2023 8:38 AM [facility] Calcium 9.3 8.5 - 10.5 mg/dL 12/13/2023 8:38 AM [facility] Est Glomerular Filtration Rate - Male 57 mL/min/1. 73 m?? 12/13/2023 8:38 AM [facility] Comment: This patient's estimated [...] urine creatinine clearance. Assignment of CKD stage 1 - 5 for patients with an eGFR near the transition point between stages may be based on clinical assessment of muscle mass and symptoms in addition to eGFR. Link: eGFR Calculator [employer] Blood VENOUS BLOOD SPECIMEN / Unknown IP Care Team Draw / Unknown 12/13/2023 7:55 AM EDT 12/13/2023 7:59 AM EDT Layo Starr MD CHEMISTRY ORDERABLES [facility] [place] [address] * Lipid Panel (Reflex Direct LDL) (12/13/2023 2:22 AM EDT) Cholesterol, Total 141 mg/dL 12/13/2023 3:05 AM [facility] Comment: Desirable: < 200 mg/dL Borderline High: 200 - 239 mg/dL High: > or = 240 mg/dL Triglyceride 83 mg/dL 12/13/2023 3:05 AM [facility] Comment: Normal: <150 mg/dL Borderline High: 150-199 mg/dL High: 200-499 mg/dL Very High: > or =500 mg/dL HDL Cholesterol 54 mg/dL 3:05 AM [facility] Comment:Males: High Risk: <4 0 mg/dL LDL Cholesterol 71 mg/dL 3:05 AM [facility] Comment: Desirable: <100 mg/dL Above Desirable: 100-129 mg/dL Borderline High: 130-159 mg/dL High: 160-189 mg/dL Very High: > or =190 mg/dL Note: LDL calculation updated to the NIH LDL formula as of 10/13/2023 Non-HDL Cholesterol 87 mg/dL 12/13/2023 3:05 AM EDT [facility] Comment: Desirable: <130 mg/dL Above Desirable: 130-159 mg/dL Borderline High: 160-189 mg/dL High: 190-219 mg/dL Very High: > or = 220 mg/dL Blood VENOUS BLOOD SPECIMEN / Unknown IP Care Team Draw / Unknown 12/13/2023 2:22 AM EDT 12/13/2023 2:35 AM EDT Narrative [facility] - 12/13/2023 3:05 AM EDT It is important to review the results of your lipid panel with your health care provider. You can compare your lipid results to the ranges below and whether they are in the desirable range. These ranges are only meant to be used for people without known cardiac disease, history of stroke, or peripheral vascular disease (blockages in the leg arteries or diabetes). If you have one of these conditions, your desirable LDL-C (bad cholesterol) will likely be even lower. ?? ACC/AHA Guidelines (most recently Matt et al. JAC 12/12/21): * For individuals with atherosclerotic cardiovascular disease (ASCVD) or LDL >=190 mg/dL, use a high-intensity statin(40-80 mg atorvastatin or 20-40 mg rosuvastatin with goal >=50% LDL reduction) * For individuals with diabetes, age 40-75 without ASCVD, moderate-intensity statin (goal 30-49% LDL reduction); consider high intensity statin for those with increased risk. * For adults without diabetes or ASCVD, aged 40-75 with LDL 70-189 mg/dL, estimate 10 year ASCVD risk with smartphrase ??.ASCVDRISK ??or Dynamed Decisions. If 10 year risk is 7.5%-19.9% (intermediate risk), consider moderate intensity statin based on risk enhancers and patient preference. Consider coronary artery calcium test (CT)if there is concern regarding the benefit of a statin. If ten year risk is >=20%, initiate high-intensity statin. * Evaluate for secondary causes of Triglycerides >500 mg/dL or LDL >190 mg/dL. * Lifestyle modification is a critical component of ASCVD risk reduction. * If not reaching LDL goals on maximally tolerated statin, consider ezetimibe and/or a PCSK9 inhibitor: ?* Target for primary prevention: LDL<100 ?* Target for those with ASCVD or diabetes and 10-year risk >=20%: LDL<70 ?* Target for those with very high risk ASCVD: LDL<55 (Very high risk being the presence of 2 or more of: recent acute coronary syndrome, past ? myocardial infarction, ischemic stroke, symptomatic peripheral artery disease) Ning Bolivar MD CHEMISTRY OR DERABLES [facility] [place] [address] * XR Chest PA & Lateral (Generic) (12/12/2023 10:47 PM EDT) Pathologist [employer] WORKSTATION ID [id number] RAD Anatomical Region Laterality Modality Chest N/A Digital Radiogra phy Impressions 12/13/2023 2:25 AM EDT Improved aeration both lungs with decreased volume of loculated chronic left hydropneumothorax. Thank you for letting us participate in the care of this patient. ??If you are a health care provider and have any questions regarding this report, please contact the number below. ??For patients who have questions please contact the health career resource specialist that requested your imaging first. ? Electronically signed by: Maryann Magallanes MD, [facility] ([phone]), at 12/13/2023 2:25 AM Narrative 12/13/2023 2:25 AM EDT EXAMINATION: XR CHEST PA AND LATERAL (GENERIC) CLINICAL HISTORY: dyspnea, COPD TECHNIQUE: PA and lateral views of the chest COMPARISON: June 11, 2022 FINDINGS: Improved aeration both lungs with decreased volume of loculated chronic left hydropneumothorax. No right pleural effusion or pneumothorax. Cardiac, mediastinal and hilar contours are within normal limits. Status post posterior left rib resection. Procedure Note Maryann Magallanes MD - 12/13/2023 EXAMINATION: XR CHEST PA AND LATERAL (GENERIC) CLINICAL HISTORY: dyspnea, COPD TECHNIQUE: PA and lateral views of the chest COMPARISON: June 11, 2022 FINDINGS: Improved aeration both lungs with decreased volume of loculated chronicleft hydropneumothorax. No right pleural effusion or pneumothorax. Cardiac, mediastinal and hilar contours are within normal limits. Status post posterior left rib resection. IMPRESSION Improved aeration both lungs with decreased volume of loculated chronicleft hydropneumothorax. Thank you for letting us participate in the care of this patient. If youare a health care provider and have any questions regarding this report,please contact the number below. For patients who have questions please contactthe health career resource specialist that requested your imaging first. Electronically signed by: Maryann Magallanes MD, [facility]([phone]), at 12/13/2023 2:25 AM Ning Bolivar MD IMG DX ORDER PHILOMENA * (ABNORMAL) CBC (with Diff) (12/12/2023 8:42 PM EDT) White Blood Cell 10.33(H) 4.00 - 9.50 x10(3)/mc L 12/12/2023 9:12 PM EDT [facility] Red Blood Cell 4.78 4.58 - 5.54 x10(6)/mc L 12/12/2023 9:12 PM EDT [facility] Hemoglobin 15.1 13.7 - 16.5 g/dL 12/12/2023 9:12 PM [facility] Hematocrit 45.4 40.5 - 48.5 % 12/12/2023 9:12 PM [facility] Mean Cell Volume 95.0(H) 82.9 - 93.1 fL 12/12/2023 9:12 PM [facility] Mean Cell Hemoglobin 31.6 27.5 - 32.1 pg 12/12/2023 9:12 PM [facility] Mean Cell Hemoglobin Concentration 33.3 32.0 - 35.7 g/dL 12/12/2023 9:12 PM [facility] Platelet 236 145 - 357 x10(3)/mc L 12/12/2023 9:12 PM [facility] Mean Platelet Volume 9.8 7.6 - 12.9 fL 12/12/2023 9:12 PM [facility] RDW Standard Deviation 50.2(H) 36.0 - 45.0 fL 12/12/2023 9:12 PM [facility] RDW coefficient of variation 14.4(H) 11.4 - 13.8 % 12/12/2023 9:12 PM [facility] NRBC% auto 0.0 % 12/12/2023 9:12 PM [facility] NRBC Absolute <0.01 <0.01 x10(3)/mc L 12/12/2023 9:12 PM [facility] Neutrophil % 76.7 % 12/12/2023 9:12 PM [facility] Neutrophil Absolute (ANC) - Automated 7.92(H) 1.70 - 6.10 x10(3)/mc L 12/12/2023 9:12 PM [facility] Lymph % 11.5 % 12/12/2023 9:12 PM [facility] Lymph Absolute 1.19 0.90 - 3.20 x10(3)/mc L 12/12/2023 9:12 PM EDT [facility] Monocyte % 11.2 % 12/12/2023 9:12 PM EDT [facility] Monocyte Absolute 1.16(H) 0.30 - 0.90 x10(3)/mc L 12/12/2023 9:12 PM EDT [facility] Eos % 0.0 % 12/12/2023 9:12 PM EDT [facility] Eos Absolute <0.04 0.00 - 0.40 x10(3)/mc L 12/12/2023 9:12 PM EDT [facility] Basophil % 0.4 % 12/12/2023 9:12 PM EDT [facility] Baso Absolute 0.04 0.00 - 0.10 x10(3)/mc L 12/12/2023 9:12 PM EDT [facility] Immature Gran % 0.2 % 9:12 PM EDT [facility] Immature Gran Absolute <0.04 0.00 - 0.04 x10(3)/mc L 12/12/2023 9:12 PM EDT [facility] Blood VENOUS BLOOD SPECIMEN / Unknown Venipuncture / Unknown 12/12/2023 8:42 PM EDT 12/12/2023 8:46 PM EDT Ning Bolivar MD HEMATOLOGY O RDERABLES [facility] [place] [address] * APTT (12/12/2023 8:41 PM EDT) Partial Thromboplastin Time 32 25 - 37 sec 12/12/2023 9:22 PM EDT [facility] Comment: The PTT is NOT appropriate for heparin monitoring. Use the Anti-Xa level for heparin monitoring (HEP UFH) or LMWH monitoring (HEP LMW). A PTT less than 37 seconds generally indicates adequate hemostasis. Blood VENOUS BLOOD SPECIMEN / Unknown Venipuncture / Unknown 12/12/2023 8:41 PM EDT 12/12/2023 8:46 PM EDT Ning Bolivar MD HEMATOLOGY O RDERABLES Performing Organization Address City/[facility]/ZIP Co de Phone Number [facility] [place] [address] * (ABNORMAL) Hepatic Function Panel (12/12/2023 8:41 PM EDT) Pathologist [facility] Albumin 4.5 3.2 - 5.2 g/dL 12/13/2023 2:11 AM EDT [facility] Aspartate Aminotransferase 12/13/2023 2:11 AM EDT [facility] Comment:Unable to report due to hemolysis. Alanine Aminotransferase 14 0 - 55 unit/L 12/13/2023 2:11 AM EDT [facility] Alkaline Phosphatase 71 40 - 130 unit/L 12/13/2023 2:11 AM EDT [facility] Bilirubin, Total 1.3 <=1.3 mg/dL 12/13/2023 2:11 AM EDT [facility] Bilirubin, Direct 0.4(H) 0.0 - 0.3 mg/dL 12/13/2023 2:11 AM EDT [facility] Protein, Total 8.2(H) 6.1 - 8.0 g/dL 12/13/2023 2:11 AM EDT [facility] Blood VENOUS BLOOD SPECIMEN / Unknown Venipuncture / Unknown 12/12/2023 8:41 PM EDT 12/12/2023 8:46 PM EDT Ning Bolivar MD CHEMISTRY OR DERABLES Performing Organization Address City/[facility]/ZIP Co de Phone Number [facility] [place] [address] * (ABNORMAL) Prothrombin Time (12/12/2023 8:41 PM EDT) Prothrombin Time 13.2(H) 9.4 - 12.5 sec 12/12/2023 9:22 PM EDT [facility] International Normalization Ratio 1.2 <=4.9 12/12/2023 9:22 PM EDT [facility] Comment: An INR < 2.0 indicates adequate procoagulant activity for hemostasis in most patients without underlying bleeding disorders, though the INR may not adequately reflect hemostatic capacity in patients with liver disease and synthetic impairment. The recommended target INR range for therapeutic anticoagulation is 2.0 - 3.0 for most applications, though lower and higher ranges may be appropriate depending on clinical circumstances. Blood VENOUS BLOOD SPECIMEN / Unknown Venipuncture / Unknown 12/12/2023 8:41 PM EDT 12/12/2023 8:46 PM EDT Ning Bolivar MD HEMATOLOGY O RDERABLES Performing Organization Address City/[facility]/ZIP Co de Phone Number [facility] [place] [address] * (ABNORMAL) pro-Brain Natriuretic Peptide (12/12/2023 8:41 PM EDT) [facility] NT-proBNP 6,282(H) <=124 pg/mL 12/13/2023 1:41 AM EDT [facility] Blood VENOUS BLOOD SPECIMEN / Unknown Venipuncture / Unknown 12/12/2023 8:41 PM EDT 12/12/2023 8:46 PM EDT Ning Bolivar MD CHEMISTRY OR DERABLES [facility] [place] [address] * TSH (12/12/2023 8:41 PM EDT) [facility] Thyroid Stimulating Hormone 0.85 0.27 - 4.20 mcIU/mL 12/13/2023 1:41 AM EDT [facility] Blood VENOUS BLOOD SPECIMEN / Unknown Venipuncture / Unknown 12/12/2023 8:41 PM EDT 12/12/2023 8:46 PM EDT Ning Bolivar MD CHEMISTRY OR DERABLES Performing Organization Address [facility] Co de Phone Number [facility] [place] [address] * Phosphorus (12/12/2023 8:41 PM EDT) Phosphorus 3.6 2.5 - 4.5 mg/dL 12/13/2023 1:43 AM EDT [facility] Blood VENOUS BLOOD SPECIMEN / Unknown Venipuncture / Unknown 12/12/2023 8:41 PM EDT 12/12/2023 8:46 PM EDT Ning Bolivar MD CHEMISTRY OR DERABLES Performing Organization Address [facility] Co de Phone Number [facility] [place] [address] * Magnesium (12/12/2023 8:41 PM EDT) Magnesium 0.86 0.69 - 1.07 mMol/L 12/13/2023 1:43 AM EDT [facility] Blood VENOUS BLOOD SPECIMEN / Unknown Venipuncture / Unknown 12/12/2023 8:41 PM EDT 12/12/2023 8:46 PM EDT Ning Bolivar MD CHEMISTRY OR DERABLES Performing Organization Address City/[facility] Co de Phone Number [facility] [place] [address] * (ABNORMAL) Basic Metabolic Panel (12/12/2023 8:41 PM EDT) Glucose 114 65 - 199 mg/dL 12/13/2023 1:55 AM EDT [facility] Comment:Glucose Concentratio n >=200 mg/dL plus symptoms is consistent with Diabetes Mellitus. Blood Urea Nitrogen 21(H) 10 - 20 mg/dL 12/13/2023 1:55 AM [facility] Creatinine 1.28 0.80 - 1.50 mg/dL 12/13/2023 1:55 AM [facility] Sodium 139 135 - 145 mMol/L 12/13/2023 1:55 AM [facility] Potassium 3.5 3.5 - 5.0 mMol/L 12/13/2023 1:55 AM [facility] Chloride 96(L) 98 - 107 mMol/L 12/13/2023 1:55 AM [facility] Carbon Dioxide 20(L) 22 - 31 mMol/L 12/13/2023 1:55 AM [facility] Anion Gap 23(H) 5 - 15 mMol/L 12/13/2023 1:55 AM [facility] Calcium 9.9 8.5 - 10.5 mg/dL 12/13/2023 1:55 AM [facility] Est Glomerular Filtration Rate - Male 59 mL/min/1. 73 m?? 12/13/2023 1:55 AM [facility] Comment: This patient's estimated [...] urine creatinine clearance. Assignment of CKD stage 1 - 5 for patients with an eGFR near the transition point between stages may be based on clinical assessment of muscle mass and symptoms in addition to eGFR. Link: eGFR Calculator [employer] Blood VENOUS BLOOD SPECIMEN / Unknown Venipuncture / Unknown 12/12/2023 8:41 PM EDT 12/12/2023 8:46 PM EDT Ning Bolivar MD CHEMISTRY OR DERABLES [facility] [place] [address] * EKG 12 Lead (12/12/2023 6:31 PM EDT) Ventricular rate 153 BPM MUSE SYSTEM Atrial Rate 306 BPM MUSE SYSTEM QRS Duration 96 ms MUSE SYSTEM Q-T Interval 300 ms MUSE SYSTEM QTC Calculated (Bezet) 479 ms MUSE SYSTEM Calculated R [place] 100 degrees MUSE SYSTEM Calculated T [place] -112 degrees MUSE SYSTEM INTERPRETATION Atrial flutter with 2:1 A-V conduction Rightward axis Minimal voltage criteria for LVH, may be normal variant ( Yash product ) Nonspecific T wave abnormality Abnormal ECG When compared with ECG of 08-NOV-2022 13:18, Atrial flutter has replaced Sinus rhythm Vent. rate has increased BY 106 BPM Confirmed by MD YOCASTA, DANIELLE ([id number]) on 12/12/2023 9:43:38 PM MUSE SYSTEM 12/12/2023 6:31 PM EDT 12/12/2023 9:43 PM EDT Tiera Goldsmith MD ECG ORDERABLES MUSE SYSTEM documented in this encounter Visit Diagnoses Diagnosis Atrial flutter- Primary Typical atrial flutter Atrial flutter Congestive heart failure, unspecified HF chronicity, unspecified heart failure type documented in this encounter Admitting Diagnoses Diagnosis Atrial flutter documented in this encounter Administered Medications Inactive Administered Medications - up to 3 most recent administrations Medication Order MAR Action Action Date Dose Rate Site acetaminophen (Tylenol) tablet 650 mg 650 mg, Oral, EVERY 4 HOURS PRN, Starting on Stephanie 12/12/23 at 2025, Until 12/16/23 at 1632, Pain, Headaches, Maximum dose of acetaminophen is 4,000 mg from all sources in 24 hours., Routine Given 12/15/2023 7:47 PM EDT 650 mg Given 12/14/2023 8:24 PM EDT 650 mg albuteroL 90 mcg/actuation inhaler 2 puff 2 puff, Inhalation, EVERY 6 HOURS PRN, Starting on Stephanie 12/12/23 at 2025, Until 12/16/23 at 1632, Wheezing, Routine, Is there a contraindication to the patient receiving this medication as a nebulizer? No, Nebulizers typically cost 5-10 times less than inhalers, making them more cost effective treatment options for most patients. If the patient can receive a nebulizer but you would like to continue ordering an inhaler, please explain why. patient request Given 12/15/2023 8:56 PM EDT 2 puffs Given 12/15/2023 2:23 PM EDT 2 puffs cyanocobalamin (Vitamin B-12) (Vitamin B-12) tablet 1,000 mcg 1,000 mcg, Oral, DAILY, First dose on Stephanie 12/12/23 at 2045, Until Discontinued, Routine Given 12/16/2023 8:36 AM EDT 1,000 mcg Given 12/15/2023 8:11 AM EDT 1,000 mcg Given 12/14/2023 9:02 AM EDT 1,000 mcg digoxin (LANOXIN) injection 187.5 mcg 187.5 mcg, Intravenous, EVERY 6 HOURS, 2 doses, First dose on Sat12/13/23 at 1745, Last dose on Sat12/13/23 at 2345, Routine Given 12/14/2023 12:43 A M EDT 187.5 mcg Given 12/13/2023 6:05 PM EDT 187.5 mcg digoxin (LANOXIN) injection 375 mcg 375 mcg, Intravenous, ONCE, 1 dose, On Sat12/13/23 at 1230, STAT Given 12/13/2023 1:34 PM EDT 375 mcg digoxin (Lanoxin) tablet 125 mcg 125 mcg, Oral, DAILY, First dose on 12/14/23 at 0900, Until Discontinued, Routine Given 12/14/2023 9:04 AM EDT 125 mcg digoxin (Lanoxin) tablet 125 mcg 125 mcg, Oral, ONCE, 1 dose, On 12/14/23 at 1730, Routine Given 12/14/2023 5:53 PM EDT 125 mcg digoxin (Lanoxin) tablet 250 mcg 250 mcg, Oral, DAILY, First dose (after last modification) on Sat12/15/23 at 0900, Until Discontinued, Routine Given 12/16/2023 10:11 AM EDT 250 mcg Given 12/15/2023 8:10 AM EDT 250 mcg docusate sodium (Colace) capsule 100 mg 100 mg, Oral, 2 TIMES DAILY, First dose on [facility] 12/12/23 at 2100, Until Discontinued, Routine Given 12/14/2023 9:05 AM EDT 100 mg Given 12/13/2023 8:44 PM EDT 100 mg Given 12/13/2023 8:56 AM EDT 100 mg enoxaparin (Lovenox) (80 mg/0.8 mL) subcutaneous injection 80 mg 80 mg, Subcutaneous, EVERY 12 HOURS SCHEDULED (2 times per day), First dose on Sat12/13/23 at 0900, Until Discontinued, Routine Given 12/13/2023 8:45 PM EDT 80 mg Given 12/13/2023 8:57 AM EDT 80 mg enoxaparin (Lovenox) (80 mg/0.8 mL) subcutaneous injection 80 mg 80 mg, Subcutaneous, EVERY 12 HOURS SCHEDULED (2 times per day), 1 dose, First dose (after last modification) on [facility] 12/14/23 at 0900, Routine Given 12/14/2023 9:05 AM EDT 80 mg famotidine (Pepcid) tablet 20 mg 20 mg, Oral, 2 TIMES DAILY, First dose on [facility] 12/12/23 at 2100, Until Discontinued, Routine Given 12/16/2023 8:35 AM EDT 20 mg Given 12/15/2023 9:00 PM EDT 20 mg Given 12/15/2023 8:10 AM EDT 20 mg furosemide (Lasix) (10 mg/mL) injection 40 mg 40 mg, Intravenous, 2 TIMES DAILY, First dose on [facility] 12/12/23 at 2015, Until Discontinued Given 12/13/2023 6:05 PM EDT 4 0 mg Given 12/13/2023 8:57 AM EDT 40 mg Given 12/12/2023 8:52 PM EDT 40 mg furosemide (Lasix) tablet 40 mg 40 mg, Oral, DAILY, First dose (after last modification) on 12/14/23 at 0900, Until Discontinued, Routine Given 12/16/2023 8:36 AM EDT 40 mg Given 12/15/2023 8:10 AM EDT 40 mg Given 12/14/2023 9:01 AM EDT 40 mg hydrOXYchloroQUINE (Plaquenil) tablet 200 mg 200 mg, Oral, DAILY, First dose on Sat12/13/23 at 0900, Until Discontinued, Routine Given 12/16/2023 8:36 AM EDT 200 mg Given 12/15/2023 8:10 AM EDT 200 mg Given 12/14/2023 9:02 AM EDT 200 mg losartan (Cozaar) tablet 25 mg 25 mg, Oral, DAILY, First dose on 12/14/23 at 0900, Until Discontinued, Routine Given 12/16/2023 8:35 AM EDT 25 mg Given 12/15/2023 8:10 AM EDT 25 mg Given 12/14/2023 9:02 AM EDT 25 mg magnesium sulfate 1 g in dextrose 5% 100 mL infusion 1 g, Intravenous, ONCE, 1 dose, On 12/14/23 at 0445, Administer over 60 Minutes New Bag 12/14/2023 5:45 AM EDT 1 g 100 mL/hr magnesium sulfate 2 g in sterile water 50 mL infusion 2 g, Intravenous, ONCE, 1 dose, On 12/14/23 at 0815, Administer over 120 Minutes Restarted 12/14/2023 10:20 AM EDT 25 mL/hr New Bag 12/14/2023 9:05 AM EDT 2 g 25 mL/hr metoprolol (LOPRESSOR) injection 5 mg 5 mg, Intravenous, EVERY 5 MIN PRN, Starting on Stephanie 12/12/23 at 1946, Until 12/16/23 at 1632, Elevated Heart Rate, prn sustained HR >130 bpm Given 12/13/2023 4: 25 AM EDT 5 mg Given 12/12/2023 9:30 PM EDT 5 mg Given 12/12/2023 8:43 PM EDT 5 mg metoprolol tartrate (Lopressor) tablet 100 mg 100 mg, Oral, EVERY 12 HOURS SCHEDULED (2 times per day), First dose (after last modification) on 12/15/23 at 2100, Until Discontinued, Hold for SBP<90 mmHg and HR<60, Routine Given 12/16/2023 8:35 AM EDT 100 mg Given 12/15/2023 9:01 PM EDT 100 mg metoproloL tartrate (Lopressor) tablet 25 mg 25 mg, Oral, ONCE, 1 dose, On Stephanie 12/12/23 at 2000, Routine Given 12/12/2023 8:43 PM EDT 25 mg metoprolol tartrate (Lopressor) tablet 50 mg 50 mg, Oral, EVERY 6 HOURS SCHEDULED, First dose (after last modification) on Sat12/13/23 at 0745, Until Discontinued, Routine Given 12/15/2023 6:32 AM EDT 50 mg Given 12/15/2023 12:19 AM EDT 50 mg Given 12/14/2023 5:03 PM EDT 50 mg metoprolol tartrate (Lopressor) tablet 50 mg 50 mg, Oral, ONCE, 1 dose, On Sat12/15/23 at 0815, Routine Given 12/15/2023 8:10 AM EDT 50 mg perflutren lipid microspheres (Definity) injection 0.5 mL 0.5 mL, Intravenous, ONCE PRN, 1 dose, Starting on Sat12/13/23 at 0919, Until Sat12/13/23 at 0920, Other, Routine Given 12/13/2023 9:20 AM EDT 0.5 mLs potassium chloride 10 mEq in sterile water 100 mL infusion 10 mEq, Intravenous, EVERY 2 HOURS, 2 doses, First dose on Sat12/13/23 at 0230, Last dose on Sat12/13/23 at 0430, Administer over 60 Minutes, Doses of 20 mEq or greater require a Central Line Warning Vesicant/Irritant Medication New Bag 12/13/2023 3:31 AM EDT 10 mEq 100 mL/hr New Bag 12/13/2023 2:22 AM EDT 10 mEq 100 mL/hr potassium chloride ER (Klor-Con M) crystal tablet 20 mEq 20 mEq, Oral, ONCE, 1 dose, On Sat12/14/23 at 0700, potassium chloride ER particle/crystal tablets (Klor-Con M) may be broken in half and each half swallowed separately. Tablets can be dissolved in ~4 ounces of water; allow ~2 minutes to dissolve, stir well and drink immediately. Do not crush, chew, or suck on tablet., Routine Given 12/14/2023 9:02 AM EDT 20 mEq potassium chloride ER (Klor-Con M) crystal tablet 40 mEq 40 mEq, Oral, DAILY, First dose on Sat12/13/23 at 1215, Until Discontinued, potassium chloride ER particle/crystal tablets (Klor-Con M) may be broken in half and each half swallowed separately. Tablets can be dissolved in ~4 ounces of water; allow ~2 minutes to dissolve, stir well and drink immediately. Do not crush, chew, or suck on tablet., Routine Given 12/16/2023 8:36 AM EDT 40 mEq Given 12/15/2023 8:10 AM EDT 40 mEq Given 12/14/2023 9:04 AM EDT 40 mEq rivaroxaban (Xarelto) tablet 15 mg 15 mg, Oral, 2 TIMES DAILY, 42 doses, First dose on 12/15/23 at 1700, Last dose on 01/05/24 at 0900, Take with food., Routine, rivaroxaban (Xarelto) Indication: Other Indication, Please document indication (see Lexicomp for detailed information on dosages and warnings/precautions): CARROLL thrombus and afib Given 12/16/2023 8:36 AM EDT 15 mg Given 12/15/2023 4:11 PM EDT 15 mg rivaroxaban (Xarelto) tablet 20 mg 20 mg, Oral, EVERY EVENING, First dose on 12/14/23 at 1700, Until Discontinued, Routine, rivaroxaban (Xarelto) Indication: Non-Valvular Atrial Fibrillation Given 12/14/2023 5:03 PM EDT 20 mg sodium chloride 0.9 % (flush) (BD PosiFlush Normal Saline 0.9) flush 5 mL 5 mL, Intravenous, 2 TIMES DAILY, First dose on Stephanie 12/12/23 at 2100, Until Discontinued, Routine Given 12/16/2023 8:37 AM EDT 5 mLs Given 12/15/2023 9:02 PM EDT 5 mLs Given 12/15/2023 8:11 AM EDT 5 mLs spironolactone (Aldactone) tablet 25 mg 25 mg, Oral, DAILY, First dose on Stephanie 12/12/23 at 2045, Until Discontinued, DO NOT SPLIT, CRUSH OR OPEN, Routine Given 12/16/2023 8:36 AM EDT 25 mg Given 12/15/2023 8:10 AM EDT 25 mg Given 12/14/2023 9:01 AM EDT 25 mg tamsulosin (Flomax) capsule 0.4 mg 0.4 mg, Oral, DAILY, First dose on Sat12/13/23 at 0900, Until Discontinued, DO NOT CRUSH OR CHEW, Routine Given 12/16/2023 8:36 AM EDT 0.4 mg Given 12/15/2023 8:10 AM EDT 0.4 mg Given 12/14/2023 9:04 AM EDT 0.4 mg tiotropium (Spiriva Respimat) 2.5 mcg/actuation inhaler 2 puff 2 puff, Inhalation, DAILY, First dose on Sat12/13/23 at 0900, Until Discontinued, Must be primed prior to first administration, Routine Given 12/16/2023 8:36 AM EDT 2 puffs Given 12/15/2023 8:11 AM EDT 2 puffs Given 12/14/2023 9:05 AM EDT 2 puffs documented in this encounter Active and Recently Administered Medications Times are shown in EDT. Scheduled Medication Order 12/14/2023 12/15/2023 12/16/2023 cyanocobalamin (Vitamin B-12) (Vitamin B-12) tablet 1,000 mcg 1,000 mcg, Oral, DAILY, First dose on Stephanie 12/12/23 at 2045, Until Discontinued, Routine 0902 (Given - Provider: Gregory Lizarraga RN) 0811 (Given - Provider: Ewa Palencia RN) 0836 (Given - Provider: Ewa Palencia RN) digoxin (LANOXIN) injection 187.5 mcg (COMPLETED)(Linked Group 1) 187.5 mcg, Intravenous, EVERY 6 HOURS, 2 doses, First dose on Sat12/13/23 at 1745, Last dose on Sat12/13/23 at 2345, Routine 0043 (Given - Provider: Brittney Jackson RN) digoxin (Lanoxin) tablet 125 mcg (CANCELED) 125 mcg, Oral, DAILY, First dose on 12/14/23 at 0900, Until Discontinued, Routine 0904 (Given - Provider: Gregory Lizarraga RN) digoxin (Lanoxin) tablet 125 mcg (COMPLETED) 125 mcg, Oral, ONCE, 1 dose, On 12/14/23 at 1730, Routine 1753 (Given - Provider: Teresa Morelos RN) digoxin (Lanoxin) tablet 250 mcg 250 mcg, Oral, DAILY, First dose (after last modification) on 12/15/23 at 0900, Until Discontinued, Routine 08 (Given - Provider: Ewa Palencia RN) 101 (Given - Provider: Ewa Palencia RN) docusate sodium (Colace) capsule 100 mg 100 mg, Oral, 2 TIMES DAILY, First dose on Stephanie 12/12/23 at 2100, Until Discontinued, Routine 904 (Given - Provider: Gregory Lizarraga RN)2099 (Not Given - Provider: Brittney Jackson RN - Reason: See comment - Comment: patient reports 3 loose stools today) 08 (Not Given - Provider: Ewa Palencia RN - Reason: Patient/family refused)2099 (Not Given - Provider: Brittney Jackson RN - Reason: Patient/family refused) 09 (Not Given - Provider: Ewa Palencia RN - Reason: Patient/family refused) enoxaparin (Lovenox) (80 mg/0.8 mL) subcutaneous injection 80 mg (COMPLETED) 80 mg, Subcutaneous, EVERY 12 HOURS SCHEDULED (2 times per day), 1 dose, First dose (after last modification) on 12/14/23 at 0900, Routine 09 (Given - Provider: Gregory Lizarraga RN) famotidine (Pepcid) tablet 20 mg 20 mg, Oral, 2 TIMES DAILY, First dose on Stephanie 12/12/23 at 2100, Until Discontinued, Routine 09 (Given - Provider: Gregory Lizarraga RN)2023 (Given - Provider: Brittney Jackson RN) 08 (Given - Provider: Ewa Palencia RN)2099 (Given - Provider: Brittney Jackson RN) 0835 (Given - Provider: Eaw Palencia RN) furosemide (Lasix) tablet 40 mg 40 mg, Oral, DAILY, First dose (after last modification) on 12/14/23 at 0900, Until Discontinued, Routine 09 (Given - Provider: Gregory Lizarraga RN) 0810 (Given - Provider: Ewa Palencia RN) 0836 (Given - Provider: Ewa Palencia RN) hydrOXYchloroQUINE (Plaquenil) tablet 200 mg 200 mg, Oral, DAILY, First dose on Sat12/13/23 at 0900, Until Discontinued, Routine 0902 (Given - Provider: Gregory Lizarraga RN) 0810 (Given - Provider: Ewa Palencia RN) 0836 (Given - Provider: Ewa Palencia, CHRISTINA) losartan (Cozaar) tablet 25 mg 25 mg, Oral, DAILY, First dose on Sat12/14/23 at 0900, Until Discontinued, Routine 0902 (Given - Provider: Gregory Lizarraga RN) 0810 (Given - Provider: Ewa Palencia, CHRISTINA) 0835 (Given - Provider: Ewa Palencia, CHRISTINA) magnesium sulfate 1 g in dextrose 5% 100 mL infusion (COMPLETED) 1 g, Intravenous, ONCE, 1 dose, On 12/14/23 at 0445, Administer over 60 Minutes 0545 (New Bag - Provider: Brittney Jackson RN)0645 (Stopped - Provider: Brittney Jackson RN) magnesium sulfate 2 g in sterile water 50 mL infusion (COMPLETED) 2 g, Intravenous, ONCE, 1 dose, On 12/14/23 at 0815, Administer over 120 Minutes 0905 (New Bag - Provider: Gregory Lizarraga RN)0930 (Hold - Provider: Gregory Lizarraga RN - Reason: Loss of access - Comment: loss of access)1020 (Restarted - Provider: Gregory Lizarraga RN)1105 (Stopped - Provider: Teresa Morelos RN) metoprolol tartrate (Lopressor) tablet 100 mg 100 mg, Oral, EVERY 12 HOURS SCHEDULED (2 times per day), First dose (after last modification) on Sat12/15/23 at 2100, Until Discontinued, Hold for SBP<90 mmHg and HR<60, Routine 2101 (Given - Provider: Brittney Jackson RN) 0835 (Given - Provider: Ewa Palencia RN) metoprolol tartrate (Lopressor) tablet 50 mg (CANCELED) 50 mg, Oral, EVERY 6 HOURS SCHEDULED, First dose (after last modification) on Sat12/13/23 at 0745, Until Discontinued, Routine 0043 (Given - Provider: Brittney Jackson RN)0549 (Given - Provider: Brittney Jackson RN)1211 (Given - Provider: Teresa Morelos RN)1703 (Given - Provider: Teresa Morelos RN) 0019 (Given - Provider: Brittney Jackson RN)0632 (Given - Provider: Brittney Jackson RN) metoprolol tartrate (Lopressor) tablet 50 mg (COMPLETED) 50 mg, Oral, ONCE, 1 dose, On 12/15/23 at 0815, Routine 0810 (Given - Provider: Ewa Palencia RN) potassium chloride ER (Klor-Con M) crystal tablet 20 mEq (COMPLETED) 20 mEq, Oral, ONCE, 1 dose, On 12/14/23 at 0700, potassium chloride ER particle/crystal tablets (Klor-Con M) may be broken in half and each half swallowed separately. Tablets can be dissolved in ~4 ounces of water; allow ~2 minutes to dissolve, stir well and drink immediately. Do not crush, chew, or suck on tablet., Routine 0902 (Given - Provider: Gregory Lizarraga RN) potassium chloride ER (Klor-Con M) crystal tablet 40 mEq 40 mEq, Oral, DAILY, First dose on Sat12/13/23 at 1215, Until Discontinued, potassium chloride ER particle/crystal tablets (Klor-Con M) may be broken in half and each half swallowed separately. Tablets can be dissolved in ~4 ounces of water; allow ~2 minutes to dissolve, stir well and drink immediately. Do not crush, chew, or suck on tablet., Routine 0904 (Given - Provider: Gregory Lizarraga RN) 0810 (Given - Provider: Ewa Palencia RN) 0836 (Given - Provider: Ewa Palencia RN) rivaroxaban (Xarelto) tablet 15 mg 15 mg, Oral, 2 TIMES DAILY, 42 doses, First dose on 12/15/23 at 1700, Last dose on 01/05/24 at 0900, Take with food., Routine, rivaroxaban (Xarelto) Indication: Other Indication, Please document indication (see Lexicomp for detailed information on dosages and warnings/precautions): CARROLL thrombus and afib 1611 (Given - Provider: Ewa Palencia RN) 0836 (Given - Provider: Ewa Palencia RN) rivaroxaban (Xarelto) tablet 20 mg (CANCELED) 20 mg, Oral, EVERY EVENING, First dose on Sat12/14/23 at 1700, Until Discontinued, Routine, rivaroxaban (Xarelto) Indication: Non-Valvular Atrial Fibrillation 1702 (Given - Provider: Teresa Morelos RN) sodium chloride 0.9 % (flush) (BD PosiFlush Normal Saline 0.9) flush 5 mL 5 mL, Intravenous, 2 TIMES DAILY, First dose on Sat12/12/23 at 2100, Until Discontinued, Routine 905 (Given - Provider: Gregory Lizarraga RN)2028 (Given - Provider: Brittney Jackson RN) 08 (Given - Provider: Ewa Palencia RN)2101 (Given - Provider: Brittney Jackson RN) 0837 (Given - Provider: Ewa Palencia RN) spironolactone (Aldactone) tablet 25 mg 25 mg, Oral, DAILY, First dose on Sat12/12/23 at 2045, Until Discontinued, DO NOT SPLIT, CRUSH OR OPEN, Routine 09 (Given - Provider: Gregory Lizarraga RN) 08 (Given - Provider: Ewa Palencia RN) 0836 (Given - Provider: Ewa Palencia RN) tamsulosin (Flomax) capsule 0.4 mg 0.4 mg, Oral, DAILY, First dose on Sat12/13/23 at 0900, Until Discontinued, DO NOT CRUSH OR CHEW, Routine 09 (Given - Provider: Gregory Lizarraga RN) 08 (Given - Provider: Ewa Palencia RN) 0836 (Given - Provider: Ewa Palencia RN) tiotropium (Spiriva Respimat) 2.5 mcg/actuation inhaler 2 puff 2 puff, Inhalation, DAILY, First dose on Sat12/13/23 at 0900, Until Discontinued, Must be primed prior to first administration, Routine 09 (Given - Provider: Gregory Lizarraga RN) 08 (Given - Provider: Ewa Palencia RN) 0836 (Given - Provider: Ewa Palencia RN) PRN Medication Order 12/14/2023 12/15/2023 12/16/2023 acetaminophen (Tylenol) tablet 650 mg 650 mg, Oral, EVERY 4 HOURS PRN, Starting on Stephanie 12/12/23 at 2025, Until 12/16/23 at 1632, Pain, Headaches, Maximum dose of acetaminophen is 4,000 mg from all sources in 24 hours., Routine 2023 (Given - Provider: Brittney Jackson, CHRISTINA) 1946 (Given - Provider: Brittney Jackson, CHRISTINA) albuteroL 90 mcg/actuation inhaler 2 puff 2 puff, Inhalation, EVERY 6 HOURS PRN, Starting on Stephanie 12/12/23 at 2025, Until 12/16/23 at 1632, Wheezing, Routine, Is there a contraindication to the patient receiving this medication as a nebulizer? No, Nebulizers typically cost 5-10 times less than inhalers, making them more cost effective treatment options for most patients. If the patient can receive a nebulizer but you would like to continue ordering an inhaler, please explain why. patient request 1422 (Given - Provider: Ewa Palencia RN)2055 (Given - Provider: Brittney Jackson, CHRISTINA) bisacodyL (Dulcolax) suppository 10 mg 10 mg, Rectal, DAILY PRN, Starting on Stephanie 12/12/23 at 2025, Until 12/16/23 at 1632, Constipation, Administer if needed per patient's routine or if no bowel movement within 48 hours to achieve: (1) One bowel movement every 48 hours, AND (2) Without straining. If multiple PRN bowel medications ordered, start with magnesium hydroxide, then bisacodyL. Multiple medications may be given concomitantly for constipation., Routine lidocaine (Xylocaine) 1% (10 mg/mL) injection 3 mg 3 mg (0.3 mL), Subcutaneous, ONCE PRN, 1 dose, Starting on Stephanie 12/12/23 at 2025, Until 12/16/23 at 1632, for discomfort with PIV insertion, Routine LORazepam (Ativan) tablet 0.5 mg 0.5 mg, Oral, EVERY 6 HOURS PRN, Starting on Stephanie 24 at 2025, Until Sat12/16/23 at 1632, Anxiety, Routine magnesium hydroxide (Milk of Magnesia) (80mg/mL) oral liquid 2,400 mg 2,400 mg (30 mL), Oral, DAILY PRN, Starting on Sat12/12/23 at 2025, Until Sat12/16/23 at 1632, Constipation, 30 mL regular (400 mg/5 mL) = 10 mL concentrate (2400 mg/10 mL), Routine metoprolol (LOPRESSOR) injection 5 mg 5 mg, Intravenous, EVERY 5 MIN PRN, Starting on Sat12/12/23 at 1946, Until Sat12/16/23 at 1632, Elevated Heart Rate, prn sustained HR >130 bpm nitroGLYcerin (Nitrostat) disintegrating tablet 0.4 mg 0.4 mg, Sublingual, EVERY 5 MIN PRN, Starting on Sat12/12/23 at 2025, Until Sat12/16/23 at 1632, Chest pain, May repeat every 5 minutes for a total of three doses. Notify provider if chest pain not relieved with nitroGLYcerin. Do not administer nitroGLYcerin if the patient has received or taken phosphodiesterase (PDE-5) inhibitors such as sildenafiL, tadalafiL or vardenafiL within the last 24 to 72 hours., Routine sodium chloride 0.9 % (flush) (BD PosiFlush Normal Saline 0.9) flush 5-20 mL 5-20 mL, Intravenous, EVERY 1 MIN PRN, Starting on Sat12/12/23 at 2025, Until Sat12/16/23 at 1632, flush, Flush pertains to all indwelling lines. Flush per protocol found in the job aid using the link provided on this medication record., Routine zolpidem (Ambien) tablet 5 mg 5 mg, Oral, NIGHTLY PRN, Starting on Sat12/12/23 at 2025, Until Sat12/16/23 at 1632, Sleep, insomnia, Routine Linked Groups Order Group 1: digoxin (LANOXIN) injection 375 mcg (COMPLETED) 375 mcg, Intravenous, ONCE, 1 dose, On Sat12/13/23 at 1230, STAT Followed by digoxin (LANOXIN) injection 187.5 mcg (COMPLETED)Jump to med 187.5 mcg, Intravenous, EVERY 6 HOURS, 2 doses, First dose on Sat12/13/23 at 1745, Last dose on Sat12/13/23 at 2345, Routine documented in this encounter Care Teams Telemetry Monitor Relationship Specialty Start Date End Date Tami Olivia [address] [place] [address] PCP - General Family Medicine 12/30/20 documented as of this encounter
--- OUTSIDE RECORDS SUMMARY | 2023-12-26 15:57 | XMS_ITS | Encounter Summary ---
Author Organization [facility] [place] [address] Care Team Providers Care Jewel Supervisor Name Role Phone Taim Olivia Primary Care Provider [phone] Encounter Details Date Type Department Care Team (Late st Contact Info) Description 12/11/2023 [place] [id number] Social History Tobacco Use Types [...] any time in the [facility] were you homeless or living in a fpc (including now)? No 12/13/2023 IPV Inpatient Questions Answer Date Recorded Does [...] 10:40 AM EST Office Visit Cardiology at [address] [id number] Chrissy Zepeda APRN [facility] [place] [address] Scheduled Procedures Name Priority Associated Diagnoses Date/Ti [...] Anatomical Region Laterality Modality Other Historical Provider MD EXTERNAL CARDIOLO GY RESULT documented in this encounter Visit Diagnoses Not on filedocumented in this encounter Care Teams Jewel Supervisor Relationship Specialty Start Date End Date Tami Olivia [address] [place] [address] PCP - General Family Medicine 12/30/20 documented as of this encounter
--- OUTSIDE RECORDS SUMMARY | 2023-12-26 15:57 | XMS_ITS | Encounter Summary ---
Author Organization [facility] [place] [address] Care Team Providers Care Mobile Lab Technician Name Role Phone Tami Olivia Primary Care Provider [phone] Reason for Visit * Auth/Cert (Routine) Specialty Diagnoses / Procedures Referred By Bert t Referred To Contact Diagnoses Atrial flutter Atrial fibrillation Procedures EMERGENCY IPI Tiera Goldsmith MD [facility] [place] [address] [facility] Referral ID Status Reason Start Date Expiration Date Visits Re quested Visits Authorized [id number] 1 1 Encounter Details Date Type Department Care Team (Late st Contact Info) Description 12/13/2023 10:45 AM EDT - 12/13/2023 11:45 AM EDT Surgery Main Operating Room [facility] [place] [address] Srini Null MD [facility] [place] [address] TRANSESOPHAGEAL ECHOCARDIOGRAM (WRVU 2.3) Social History Tobacco Use Types Packs/Day Years [...] any time in the past 12 [facility], were you homeless or living in a usp (including now)? No 12/13/2023 DH IPV Inpatient [...] Sign Reading Time Taken Comments Blood Pressure 98/70 12/13/2023 11:45 AM EDT Pulse 133 12/13/2023 11:45 AM EDT Temperature 36.1 ??C (97 ??F) 12/13/2023 11:28 AM EDT Respiratory Rate 26 12/13/2023 11:45 AM EDT Oxygen Saturation 91% 12/13/2023 11:45 AM EDT Inhaled Oxygen Concentration - - Weight 80.9 kg (178 lb 6.4 oz) 12/13/2023 5:42 A M EDT Height 172.7 cm (5' 8) 12/12/2023 6:15 PM EDT Body Mass Index 27.34 12/12/2023 6:15 PM EDT documented in this encounter Discharge Summaries * Layo Starr MD - 12/16/2023 1:38 PM EDT Images from the original note were not included. Discharge Summary Patient Name: Rajan Faulkner Patient Age: 72 y.o. Language: Armenian Admit date: 12/12/2023 Discharge date and time: [...] Provider Contact Information: Layo Starr MD Pager #[phone] Discharge Diagnoses (Hospital Problems) and Secondary Diagnoses [...] thrombus and hence cardioversion was not performed. [id number]:3,, started on Lovenox 1 mg/kg body weight [...] Instructions Hospital course You were admitted to [facility] for elevated heart rate and shortness [...] of 8AM-5PM please call the Cardiology Clinic [phone] to speak with a nurse. All other hours please call the Hospital Acetylene Plant Operator [phone] and ask to speak to the cardiovascular hospitalist on-call. For any emergent questions, please call 911 or visit your nearest emergency department/urgent care center Return to work: One week Driving: No driving for 48 hours after cath Follow up Appointments: Doctor Where Phone # Date Time PCP Tami Olivia [address] [place] [address] Dec, , 11.30 PM Electronic Instrument Trades Worker [facility] Cardiology Clinic [phone] Jan 19Saturday 10.40 AM Diet-2 g salt, 2 L/day fluid restriction Activity-as tolerated. General Instructions None Future Appointments and Orders Future Appointments and Orders Future Appointments Provider Department Dept Phone 01/20/2024 10:40 AM Chrissy Zepeda APRN Cardiology at [facility] Arrive at: It Senior Analyst Area [phone] Future Orders Complete By Expires Digoxin level [...] Instructions: Questions: Where will study be performed?: [facility] Clinics Does the patient have difficulty swallowing?: No Does the patient have esophageal problems?: No Is a 3D HARSH needed? (If Yes, provide indication in comment section): Referral to Cardiac Rehab [[id number] Custom] As directed Process Instructions: If no progress note charted, please enter Clinical details in comments. Scheduling Instructions: Questions: My question or request is: cardiomyopathy Discharge References/Attachments None More than 30 minutes were spent on this discharge including documentation, [id number] time with patient, patient education, circuit recorder, and coordination pharmacy, follow-up and other patient care. Layo Starr MD 12/16/2023 1:42 PM documented in this encounter Discharge Instructions * Patient Instructions* Layo Starr MD - 12/15/2023 4:55 PM EDT Hospital course You were admitted to [facility] for elevated heart rate and shortness [...] of 8AM-5PM please call the Cardiology Clinic [phone] to speak with a nurse. All other hours please call the Hospital Acetylene Plant Operator [phone] and ask to speak to the cardiovascular hospitalist on-call. For any emergent questions, please call 911 or visit your nearest emergency department/urgent care center Return to work: One week Driving: No driving for 48 hours after cath Follow up Appointments: Doctor Where Phone # Date Time PCP Tami Olivai [address] [place] [address] Dec, 11.30 PM Electronic Instrument Trades Worker [facility] Cardiology 4A Clinic [phone] Jan 19Saturday 10.40 AM Diet-2 g salt, [...] 2:23 PM EDT [facility] H[facility]PITALIST 2 - [facility] DAILY PROGRESS NOTE Page [phone] to reach a provider 01/10 Admit Date: [...] HDL 54 LDLCHOL 71 Recent Labs 12/15/2323012/14/2330112/13/23 075 GLUCOSE 109 107 106 Stress Testin02/13/2021 IMPRESSION [...] thrombus and hence cardioversion was not performed. [id number]:3,, started on Lovenox 1 mg/kg body weight [...] Score: 23 PT: OT: PCP Tami Olivia [phone] Disposition-discharge tomorrow. Layo Starr MD 12/15/2023 2:23 [...] is requesting. A new copy of the [place] Advance Directive was left for review and in the event that the patient wants to make a lot of changes to the existing form. Patient and significant other educated on the purpose of the Advance Directive and process to change or update it. Tita Ford [facility] Office of Case Management-Mortgage Protection Specialist Clinical Mortgage Protection Specialist ED CDU SDP Pager [phone] * Layo Starr MD - 12/14/2023 11:10 AM EDT CV HOSPITALIST 2 - [facility] DAILY PROGRESS NOTE Page [phone] to reach a provider 01/10 Admit Date: [...] regards to assistance for his medications upon flory yan. Medications: Scheduled Meds: digoxin 125 mcg Oral [...] no edema Skin- normal Labs: Recent Labs 12/14/2330112/12/232041 WBC 12.68* 10.33* HGB 13.9 15.1 HCT 42.4 45.4 PLATELET 214 236 MCV 94.4* 95.0* Recent Labs 12/14/2330112/13/23 0755 12/12/232040 NA 137 140 139 CL 97* 99 96* CO2 28 28 20* K 3.2* 3.3* 3.5 MAGNESIUM 0.74 -- 0.86 PHOS -- -- 3.6 CALCIUM 9.3 9.3 9.9 BUN 31* 25* 21* CREATININE 1.33 1.31 1.28 Coags Recent Labs 12/12/232040 INR 1.2 PT 13.2* PTT 32 Cardiac Markers Recent Labs 12/12/232040 PROBNP 6,282* Endocrine Recent Labs 12/12/232040 TSH 0.85 Recent Labs 12/13/23221 CHLPL 141 TRIG 83 HDL 54 LDLCHOL 71 Recent Labs 12/14/23 03012/13/23 0755 12/12/232040 GLUCOSE 107 106 114 Stress [...] thrombus and hence cardioversion was not performed. OZMWP2Nkzs:3,, started on Lovenox 1 mg/kg body weight [...] Score: 23 PT: OT: PCP Tami Olivia [phone] Disposition-likely discharge in the next 24 to 48 hours. Layo Starr MD 12/14/2023 11:10 AM * Joanie Tamika M - 12/13/2023 5:32 PM EDT Pt is [...] 11:39 AM EDT CV HOSPITALIST 2 - [facility] DAILY PROGRESS NOTE Page [phone] to reach a provider 01/10 Admit Date: 12/12/2023 Encounter Date December 13, 2023 Anticipated Discharge Date: 12/15/2023 Hospital Day: 1 Active Hospital Problems Diagnosis Atrial flutter Resolved Hospital Problems No resolved problems to display. 24 Hour Events/Subjective: No acute events overnight. Patient tells me that he was diagnosed with atrial fibrillation about 3 years ago, did see his trade specialist about 6 months ago. He is status [...] Hold] metoproloL tartrate 50 mg Oral Q6H [place] [Transfer Hold] enoxaparin 80 mg Subcutaneous 2 [...] 83 HDL 54 LDLCHOL 71 Recent Labs 12/13/2375412/12/232040 GLUCOSE 106 114 Stress Testin02/13/2021 IMPRESSION Normal [...] 12/12/2023 10:47 PM) Result Value WORKSTATION ID [id number] Impression Improved aeration both lungs with decreased volume of loculated chronic left hydropneumothorax. Thank you for letting us participate in the care of this patient. If you are a health care provider and have any questions regarding this report, please contact the number below. For patients who have questions please contact the health direct care counselor that requested your imaging first. Electronically signed by: Maryann Magallanes MD, [facility] ([phone]), at 12/13/2023 2:25 AM 2D echocardiogram, 12/13/2023, [...] Will also consult general cardiology further recommendations. [id number]:3, will hold off on Xarelto, started on [...] Discharge Location: AM-PAC Basic Mobility Raw Score: 20 PT: OT: PCP Tami Olivia [phone] Layo Starr MD 12/13/2023 11:58 AM Addendum: [...] Starr MD 12/13/2023 1:41 PM * Layo Satrr MD - 12/13/2023 9:37 AM EDT Images from the original note were not included. [facility] Pre-Procedure H&P and Pre-Sedation Assessment Rajan [...] When patient presented to the ED at [facility] in [place], [place] he was found to be in acute respiratory failure d/t acutely decompenasated CHF. He was tachycardic in the 150's and tachypneic and hypoxicw/ SPO2 77%. He was treated w/ BIPAP, iv lasix and bolused w/ iv diltiazem and put on diltiazem drip. [facility] cardiology was consulted for transfer and patient was accepted for transfer to Dr. Gray for HARSH and cardioversion but d/t lack of bed availability, patient was hospitalized overnight at [facility]. He was begun on heparin drip and his cardizem dripped was weaned off and patient was put on lopressor 50 mg po q6h. He has now been transferred to [facility] cardiology for HARSH and DCC. Past Medical [...] IR Thoracentesis Left 11/08/2021 Ramírez Ramirez MD [facility] INTERVENTIONL RAD PRO BRONCHOSCOPY, DIAGNOSTIC N/A 03/29/2021 BRONCHOSCOPY, DIAGNOSTIC (WRVU 2.78) performed by Gilmer Gutiérrez MD at [facility] MAIN OR PRO BRONCHOSCOPY, DIAGNOSTIC N/A 02/08/2022 BRONCHOSCOPY, DIAGNOSTIC (WRVU 2.78) performed by Gilmer Gutiérrez MD at [facility] MAIN OR PRO BRONCHOSCOPY, DIAGNOSTIC N/A 05/18/2022 BRONCHOSCOPY, DIAGNOSTIC (WRVU 2.53) performed by Gilmer Gutiérrez MD at [facility] MAIN OR PRO CARDIOVERSION ELECTIVE ARRHYTHMIA EXTERNAL N/A 11/08/2022 CARDIOVERSION-ELECTIVE (WRVU 2) performed by Sekou Canales MD at [facility] MAIN OR PRO DECORTICATION, PULMONARY, TOTAL Left 05/18/2022 @THORACOTOMY,DECORTICATION, PULMONARY, TOTAL (WRVU 26.65) performed by Gilmer Gutiérrez MD [facility] MAIN OR PRO INJECTION ANES AGENT &/ STEROID INTERCOSTAL NERVE SINGLE LEVEL Left 03/29/2021 NERVE BLOCK, INTERCOSTAL NERVE (WRVU 1.18) performed by Gilmer Gutiérrez MD at [facility] MAIN OR PRO RECONSTRUCT INJURED CHEST Left 05/18/2022 @MAJOR RECONSTRUCTION, CHEST WALL (WRVU 22.51) performed by Gilmer Gutiérrez MD at [facility] MAIN OR PRO THORACOSCOPY SURG LOBECTOMY Left 03/29/2021 @THORACOSCOPY,SURGICAL,W\LOBECTOMY,TOTAL OR SEGMENTAL (WRVU 24.64) performed by Johana Gutiérrez MD at [facility] MAIN OR PRO THORACOSCOPY WITH BIOPSY OF PLEURA Left 02/08/2022 THORACOSCOPY; WITH BIOPSY(IES) OF PLEURA (WRVU 4.58) performed by Gilmer [facility]rez [facility] PRO THORACOSCOPY WITH MEDIASTINAL AND REGIONAL LYMPHADENECTOMY 03/29/2021 @THORACOSCOPY, SURG; W/MEDIASTINAL& REGIONAL LYMPHADENECTOMY (WRVU 4.12) performed by Gilmer Gutiérrez MD at [facility] MAIN OR PRO THORACOSCOPY WITH WEDGE RESECTION AND ANATOMIC LUNG RESECTN Left 03/29/2021 @THORACOSCOPY, SURG; W/DX WEDGE RESC W/ANATOMIC LUNG RESC (WRVU 3) performed by Johana Gutiérrez MD at [facility] MAIN OR Significant Family History: Family [...] cutting his medication costs. RNCM spoke with [email or web address], original quote was over $600, but they were able to bring costs down to $330. Pt was notified and he states he isable to afford this cost. [facility] [address] [facility]. Patient is insured through: Primary Insurance: AAR MANAGED MEDICARE Payor: AARP [...] Nursing consult to Social Work Ordered at: 12/13/23 0925 Reason for Consult: Financial resources Social Work Response: MANAGER GAS met with patient to provide support and follow up on social work consult.Patient shares that two of his medications - his blood thinner and one of his inhalers - are very expensive. Patient is interested in learning about assistance programs as the one inhaler alone costshim $800/month. Patient shares he goes to [facility] in [place] for the blood thinner and the inhaler because they are a bit cheaper. Per patient, he gets his other medications at [facility] in [place]. MANAGER GAS spoke with the Medication Assistance team and learned about two assistance programs for pt's inhalers, one for Breo and one for Spiriva. MANAGER GAS provided patient with applications for both programs and explained that his PCP would have to help him complete them. MANAGER GAS also informed patient that his doctor would talk with him about options for his blood thinner. Patient appreciative of information and assistance and denies other social work needs at this time. Follow Up Needed: None at this time. Social work will remain available for support as needed. MIA Harley, [facility] Care Management, [phone] * Initial Assessments - [...] surrogate would be surrogate decision maker per [place] surrogate decision making law. (Only good for 180 days) Patient states he has an AD at [facility] listing his SO Melania Leonard ([phone]) as decision maker. Patient also has a daughter, Karla Brown ([phone]), but says she is not listed on new AD's. Any patient receiving care in [place] must abide by [place] law. The hierarchy for surrogate decision making [...] (i) The agent with financial power of assistant prosecuting attorney or a conservator appointed in [...] were you homeless or living in a usp (including now)?: No Resource / Environmental Concerns: [...] of his home) Home Address confirmed as: [address] [place] [phone] Social & Family Supports: Extended Emergency Contact Information Primary Emergency Contact: LeonardMelania Mobile Relation: Significant Other Current Care Provided [...] most expensive medications at [facility] in [place] and pays mon because it is cheaper. Health/Prescription Coverage: Primary Insurance: [facility] MANAGED MEDICARE Payor: AARP MANAGED MEDICARE / Plan: [facility] H[facility] MANAGED MEDICARE COMPLETE / Product Type: *No Producttype* / Secondary Insurance: N/A ; Prescription Coverage: Yes Preferred Pharmacy: [facility] [address] [address] [place] Status: Patient is a : No Primary Care Provider confirmed: Tami Olivia [phone] Patient/Caregiver Goals of Treatment: Return home with SO Potential Needs for Transition of Care: unable to assess Agency Referrals: Pending hospital course Transportation: no concerns Transportation Anticipated: family or friend will provide Concerns to be Addressed: discharge planning Assessment: Patient is admitted to Cardiology service for atrial flutter. Pt is a 72 yo male who lives in a one level home in [place], [place]. Per patient, he plans to stay with his SO Melania Leonard at discharge. Patient reports that two of his medications are very expensive. One is an inhaler and costs about $800/month, and the other is a blood thinner. Patient states he gets most of his medications at [facility] in [place], but goes to [facility] in [place] for the inhaler and blood thinner. Patient shares he stopped drinking several years ago. Per patient he hasn't had alcohol in about three years and feels much more engaged with life. Patient also shares that he worked for [employer] for 38 years before retiring. Plan going forward: MANAGER GAS will look into medication assistance programs for pt. MANAGER GAS will also make referral for AD. Care Management team will continue to follow and assist with discharge planing and coordination of care as indicated. MIA Harley, [facility] Care Management, [phone] * Brief Op Note - Ronni Morales MD - 12/13/2023 11:29 AM EDT Preliminary HARSH Procedure Note: Patient Name: Rajan Faulkner : [id number] MR#: [id number] Case Date: 12/13/2023 Acetylene Plant Operator: Surgeons and Role: * Srini Null MD [...] 10:40 AM EST Office Visit Cardiology at [address] [phone] Chrissy Zepeda APRN [facility] [place] [address] Scheduled Orders Name Type Priority Associated Diagnoses [...] Typical atrial flutter Cardioversion Elective Arrhythmia External (85714) 12/13/2023 10:38 AM EDT typical aflutter HARSH complete wo contrast (93333) 12/13/2023 10:38 AM EDT typical aflutter ECHO [...] Digoxin level (12/16/2023 7:43 AM EDT) Pathologist [facility] Digoxin 1.0 0.8 - 2.0 mcg/L 12/16/2023 8:54 AM EDT [facility] Blood VENOUS BLOOD SPECIMEN / Unknown IP Care Team Draw / Unknown 12/16/2023 7:43 AM EDT 12/16/2023 8:06 AM EDT Layo Starr MD CHEMISTRY ORDERABLES [facility] [place] [address] * Magnesium (12/16/2023 2:16 AM EDT) Pathologist [facility] Magnesium 0.92 0.69 - 1.07 mMol/L 12/16/2023 3:05 AM EDT [facility] Blood VENOUS BLOOD SPECIMEN / Unknown IP Care Team Draw / Unknown 12/16/2023 2:16 AM EDT 12/16/2023 2:35 AM EDT Layo Starr MD CHEMISTRY ORDERABLES [facility] [place] [address] * (ABNORMAL) CBC (with Diff) (12/16/2023 2:16 AM EDT) Pathologist [facility] White Blood Cell 9.96(H) 4.00 - 9.50 x10(3)/mc L 12/16/2023 2:42 AM EDT [facility] Red Blood Cell 4.66 4.58 - 5.54 x10(6)/mc L 12/16/2023 2:42 AM [facility] Hemoglobin 14.7 13.7 - 16.5 g/dL 12/16/2023 2:42 AM [facility] Hematocrit 43.2 40.5 - 48.5 % 12/16/2023 2:42 AM [facility] Mean Cell Volume 92.7 82.9 - 93.1 fL 12/16/2023 2:42 AM [facility] Mean Cell Hemoglobin 31.5 27.5 - 32.1 pg 12/16/2023 2:42 AM [facility] Mean Cell Hemoglobin Concentration 34.0 32.0 - 35.7 g/dL 12/16/2023 2:42 AM [facility] Platelet 241 145 - 357 x10(3)/mc L 12/16/2023 2:42 AM [facility] Mean Platelet Volume 9.7 7.6 - 12.9 fL 12/16/2023 2:42 AM [facility] RDW Standard Deviation 46.5(H) 36.0 - 45.0 fL 12/16/2023 2:42 AM [facility] RDW coefficient of variation 13.8 11.4 - 13.8 % 12/16/2023 2:42 AM [facility] NRBC% auto 0.0 % 12/16/2023 2:42 AM [facility] NRBC Absolute <0.01 <0.01 x10(3)/mc L 12/16/2023 2:42 AM [facility] Neutrophil % 68.8 % 12/16/2023 2:42 AM [facility] Neutrophil Absolute (ANC) - Automated 6.85(H) 1.70 - 6.10 x10(3)/mc L 12/16/2023 2:42 AM [facility] Lymph % 18.0 % 12/16/2023 2:42 AM EDT [facility] Lymph Absolute 1.79 0.90 - 3.20 x10(3)/mc L 12/16/2023 2:42 AM EDT [facility] Monocyte % 11.4 % 12/16/2023 2:42 AM EDT [facility] Monocyte Absolute 1.14(H) 0.30 - 0.90 x10(3)/mc L 12/16/2023 2:42 AM EDT [facility] Eos % 1.0 % 12/16/2023 2:42 AM EDT [facility] Eos Absolute 0.10 0.00 - 0.40 x10(3)/mc L 12/16/2023 2:42 AM EDT [facility] Basophil % 0.6 % 12/16/2023 2:42 AM EDT [facility] Baso Absolute 0.06 0.00 - 0.10 x10(3)/mc L 12/16/2023 2:42 AM EDT [facility] Immature Gran % 0.2 % 2:42 AM EDT [facility] Immature Gran Absolute <0.04 0.00 - 0.04 x10(3)/mc L 12/16/2023 2:42 AM EDT [facility] Blood VENOUS BLOOD SPECIMEN / Unknown IP Care Team Draw / Unknown 12/16/2023 2:16 AM EDT 12/16/2023 2:35 AM EDT Layo Starr MD HEMATOLOGY ORDERABLE S [facility] [place] [address] * (ABNORMAL) Basic Metabolic Panel (12/16/2023 2:16 AM EDT) Glucose 101 65 - 199 mg/dL 12/16/2023 3:05 AM EDT [facility] Comment:Glucose Concentratio n >=200 mg/dL plus symptoms is consistent with Diabetes Mellitus. Blood Urea Nitrogen 25(H) 10 - 20 mg/dL 12/16/2023 3:05 AM [facility] Creatinine 1.18 0.80 - 1.50 mg/dL 12/16/2023 3:05 AM [facility] Sodium 137 135 - 145 mMol/L 12/16/2023 3:05 AM [facility] Potassium 3.8 3.5 - 5.0 mMol/L 12/16/2023 3:05 AM [facility] Chloride 100 98 - 107 mMol/L 12/16/2023 3:05 AM [facility] Carbon Dioxide 25 22 - 31 mMol/L 12/16/2023 3:05 AM [facility] Anion Gap 12 5 - 15 mMol/L 12/16/2023 3:05 AM [facility] Calcium 9.3 8.5 - 10.5 mg/dL 12/16/2023 3:05 AM [facility] Est Glomerular Filtration Rate - Male 65 mL/min/1. 73 m?? 12/16/2023 3:05 AM [facility] Comment: This patient's estimated GFR was [...] AM EDT Layo Starr MD CHEMISTRY ORDERABLES [facility] [place] [address] * Magnesium (12/15/2023 2:31 AM EDT) Pathologist [facility] Magnesium 1.03 0.69 - 1.07 mMol/L 12/15/2023 3:20 AM EDT [facility] Blood VENOUS BLOOD SPECIMEN / Unknown IP Care Team Draw / Unknown 12/15/2023 2:31 AM EDT 12/15/2023 2:47 AM EDT Layo Starr MD CHEMISTRY ORDERABLES [facility] [place] [address] * (ABNORMAL) CBC (with Diff) (12/15/2023 2:31 AM EDT) [facility] [place] White Blood Cell 9.33 4.00 - 9.50 x10(3)/mc L 12/15/2023 2:56 AM EDT [facility] Red Blood Cell 4.54(L) 4.58 - 5.54 x10(6)/mc L 12/15/2023 2:56 AM EDT [facility] Hemoglobin 14.2 13.7 - 16.5 g/dL 12/15/2023 2:56 AM EDT [facility] Hematocrit 42.5 40.5 - 48.5 % 12/15/2023 2:56 AM EDT [facility] Mean Cell Volume 93.6(H) 82.9 - 93.1 fL 12/15/2023 2:56 AM EDT [facility] Mean Cell Hemoglobin 31.3 27.5 - 32.1 pg 12/15/2023 2:56 AM EDT [facility] Mean Cell Hemoglobin Concentration 33.4 32.0 - 35.7 g/dL 12/15/2023 2:56 AM EDT [facility] Platelet 223 145 - 357 x10(3)/mc L 12/15/2023 2:56 AM [facility] Mean Platelet Volume 9.8 7.6 - 12.9 fL 12/15/2023 2:56 AM [facility] RDW Standard Deviation 48.0(H) 36.0 - 45.0 fL 12/15/2023 2:56 AM [facility] RDW coefficient of variation 13.9(H) 11.4 - 13.8 % 12/15/2023 2:56 AM [facility] NRBC% auto 0.0 % 12/15/2023 2:56 AM [facility] NRBC Absolute <0.01 <0.01 x10(3)/mc L 12/15/2023 2:56 AM [facility] Neutrophil % 70.1 % 12/15/2023 2:56 AM [facility] Neutrophil Absolute (ANC) - Automated 6.54(H) 1.70 - 6.10 x10(3)/mc L 12/15/2023 2:56 AM [facility] Lymph % 14.6 % 12/15/2023 2:56 AM [facility] [facility] Lymph Absolute 1.36 0.90 - 3.20 x10(3)/mc L 12/15/2023 2:56 AM [facility] Monocyte % 13.5 % 12/15/2023 2:56 AM [facility] Monocyte Absolute 1.26(H) 0.30 - 0.90 x10(3)/mc L 12/15/2023 2:56 AM [facility] Eos % 1.1 % 12/15/2023 2:56 AM [facility] Eos Absolute 0.10 0.00 - 0.40 x10(3)/mc L 12/15/2023 2:56 AM [facility] Basophil % 0.5 % 12/15/2023 2:56 AM [facility] Baso Absolute 0.05 0.00 - 0.10 x10(3)/mc L 12/15/2023 2:56 AM EDT [facility] Immature Gran % 0.2 % 2:56 AM EDT [facility] Immature Gran Absolute <0.04 0.00 - 0.04 x10(3)/mc L 12/15/2023 2:56 AM EDT [facility] Blood VENOUS BLOOD SPECIMEN / Unknown IP Care Team Draw / Unknown 12/15/2023 2:31 AM EDT 12/15/2023 2:47 AM EDT Layo Starr MD HEMATOLOGY ORDERABLE S [facility] [address] * (ABNORMAL) Basic Metabolic Panel (12/15/2023 2:31 AM EDT) Glucose 109 65 - 199 mg/dL 12/15/2023 3:20 AM [facility] Comment:Glucose Concentratio n >=200 mg/dL plus symptoms is consistent with Diabetes Mellitus. Blood Urea Nitrogen 27(H) 10 - 20 mg/dL 12/15/2023 3:20 AM [facility] Creatinine 1.16 0.80 - 1.50 mg/dL 12/15/2023 3:20 AM [facility] Sodium 138 135 - 145 mMol/L 12/15/2023 3:20 AM [facility] Potassium 3.7 3.5 - 5.0 mMol/L 12/15/2023 3:20 AM [facility] Chloride 100 98 - 107 mMol/L 12/15/2023 3:20 AM [facility] Carbon Dioxide 27 22 - 31 mMol/L 12/15/2023 3:20 AM [facility] Anion Gap 11 5 - 15 mMol/L 12/15/2023 3:20 AM [facility] Calcium 9.2 8.5 - 10.5 mg/dL 12/15/2023 3:20 AM EDT [facility] Est Glomerular Filtration Rate - Male 67 mL/min/1. 73 m?? 12/15/2023 3:20 AM EDT [facility] Comment: This patient's [...] AM EDT Layo Starr MD CHEMISTRY ORDERABLES [facility] [place] [address] * Digoxin level (12/15/2023 2:31 AM EDT) Digoxin 1.0 0.8 - 2.0 mcg/L 12/15/2023 3:16 AM EDT [facility] Blood VENOUS BLOOD SPECIMEN / Unknown IP Care Team Draw / Unknown 12/15/2023 2:31 AM EDT 12/15/2023 2:47 AM EDT Layo Starr MD CHEMISTRY ORDERABLES [facility] [place] [address] * Digoxin level (12/14/2023 8:08 AM EDT) Digoxin 0.9 0.8 - 2.0 mcg/L 12/14/2023 9:05 AM EDT [facility] Blood VENOUS BLOOD SPECIMEN / Unknown IP Care Team Draw / Unknown 12/14/2023 8:08 AM EDT 12/14/2023 8:25 AM EDT Layo Starr MD CHEMISTRY ORDERABLES Performing Organization Address City/[facility]/ZIP Co de Phone Number [facility] [place] [address] * Magnesium (12/14/2023 3:02 AM EDT) Pathologist [facility] Magnesium 0.74 0.69 - 1.07 mMol/L 12/14/2023 3:52 AM EDT [facility] Blood VENOUS BLOOD SPECIMEN / Unknown IP Care Team Draw / Unknown 12/14/2023 3:02 AM EDT 12/14/2023 3:22 AM EDT Layo Starr MD CHEMISTRY ORDERABLES [facility] [place] [address] * (ABNORMAL) CBC (with Diff) (12/14/2023 3:02 AM EDT) Pathologist [facility] White Blood Cell 12.68(H) 4.00 - 9.50 x10(3)/mc L 12/14/2023 3:31 AM EDT [facility] Red Blood Cell 4.49(L) 4.58 - 5.54 x10(6)/mc L 12/14/2023 3:31 AM EDT [facility] Hemoglobin 13.9 13.7 - 16.5 g/dL 12/14/2023 3:31 AM EDT [facility] Hematocrit 42.4 40.5 - 48.5 % 12/14/2023 3:31 AM EDT [facility] Mean Cell Volume 94.4(H) 82.9 - 93.1 fL 12/14/2023 3:31 AM EDT [facility] Mean Cell Hemoglobin 31.0 27.5 - 32.1 pg 12/14/2023 3:31 AM [facility] Mean Cell Hemoglobin Concentration 32.8 32.0 - 35.7 g/dL 12/14/2023 3:31 AM [facility] Platelet 214 145 - 357 x10(3)/mc L 12/14/2023 3:31 AM [facility] Mean Platelet Volume 9.9 7.6 - 12.9 fL 12/14/2023 3:31 AM [facility] RDW Standard Deviation 48.6(H) 36.0 - 45.0 fL 12/14/2023 3:31 AM [facility] RDW coefficient of variation 13.9(H) 11.4 - 13.8 % 12/14/2023 3:31 AM [facility] NRBC% auto 0.0 % 12/14/2023 3:31 AM [facility] NRBC Absolute <0.01 <0.01 x10(3)/mc L 12/14/2023 3:31 AM [facility] Neutrophil % 79.3 % 12/14/2023 3:31 AM [facility] Neutrophil Absolute (ANC) - Automated 10.06(H) 1.70 - 6.10 x10(3)/mc L 12/14/2023 3:31 AM [facility] Lymph % 8.5 % 12/14/2023 3:31 AM [facility] Lymph Absolute 1.08 0.90 - 3.20 x10(3)/mc L 12/14/2023 3:31 AM [facility] Monocyte % 11.3 % 12/14/2023 3:31 AM [facility] Monocyte Absolute 1.43(H) 0.30 - 0.90 x10(3)/mc L 12/14/2023 3:31 AM [facility] Eos % 0.1 % 12/14/2023 3:31 AM EDT [facility] Eos Absolute <0.04 0.00 - 0.40 x10(3)/mc L 12/14/2023 3:31 AM EDT [facility] Basophil % 0.4 % 12/14/2023 3:31 AM EDT [facility] Baso Absolute 0.05 0.00 - 0.10 x10(3)/mc L 12/14/2023 3:31 AM EDT [facility] Immature Gran % 0.4 % 3:31 AM EDT [facility] Immature Gran Absolute 0.05(H) 0.00 - 0.04 x10(3)/mc L 12/14/2023 3:31 AM EDT [facility] Blood VENOUS BLOOD SPECIMEN / Unknown IP Care Team Draw / Unknown 12/14/2023 3:02 AM EDT 12/14/2023 3:22 AM EDT Layo Starr MD HEMATOLOGY ORDERABLE S [facility] [place] [address] * (ABNORMAL) Basic Metabolic Panel (12/14/2023 3:02 AM EDT) Glucose 107 65 - 199 mg/dL 12/14/2023 3:52 AM EDT [facility] Comment:Glucose Concentratio n >=200 mg/dL plus symptoms is consistent with Diabetes Mellitus. Blood Urea Nitrogen 31(H) 10 - 20 mg/dL 12/14/2023 3:52 AM EDT [facility] Creatinine 1.33 0.80 - 1.50 mg/dL 12/14/2023 3:52 AM EDT [facility] Sodium 137 135 - 145 mMol/L 12/14/2023 3:52 AM EDT [facility] Potassium 3.2(L) 3.5 - 5.0 mMol/L 12/14/2023 3:52 AM EDT [facility] Chloride 97(L) 98 - 107 mMol/L 12/14/2023 3:52 AM EDT [facility] Carbon Dioxide 28 22 - 31 mMol/L 12/14/2023 3:52 AM EDT [facility] Anion Gap 12 5 - 15 mMol/L 12/14/2023 3:52 AM EDT [facility] Calcium 9.3 8.5 - 10.5 mg/dL 12/14/2023 3:52 AM EDT [facility] Est Glomerular Filtration Rate - Male 56 mL/min/1. 73 m?? 12/14/2023 3:52 AM EDT [facility] Comment: This patient's [...] AM EDT Layo Starr MD CHEMISTRY ORDERABLES [facility] [place] [address] * HARSH W LMTD SPECTRAL DOPPLER COLOR DOPPLER (12/13/2023 12:02 PM EDT) Anatomical Region Laterality Modality Cardiac Other 12/13/2023 10:1 2 AM EDT Narrative 12/13/2023 12:29 PM EDT ? Transesophageal Echocardiogram Report Name: RAJAN FAULKNER ?Study Date: 12/13/2023 10:12 AM ? Patient Location: ^[facility]^A : 1950 ? Account: [id number] Age: 72 yrs Gender: Male Ordering Physician: LAYO STARR Referring Physician: DEBORAH CHA Performed By: Ronni Morales MD Reason For Study: pre cardioversion Exam Location: [facility]. Interpretation Summary 1. There is heavy [...] RAJAN FAULKNER Study Date: 0:12 AM Patient Location:[facility]^A : 1950 Account: [id number] Age: 72 yrs Gender: Male Ordering Physician: LAYO STARR Referring Physician: DEBORAH CHA Performed By: Ronni Morales MD Reason For Study: pre cardioversion Exam Location: [facility]. Interpretation Summary 1. There is heavy [...] AM EDT Narrative 12/13/2023 9:27 AM EDT [address] [place] [address] ? Echocardiogram Report Name: RAJAN FAULKNER W ?Study Date: 12/13/2023 07:07 AMBP: 121/89 mmHg ? Patient Location: ^471^A : 1950 ? Height: 173 cm ? Account: [id number] Age: 72 yrs ? Weight: 81 kg Gender: Male ?BSA: 1.9 m2 Ordering Physician: NING BOLIVAR Referring Physician: DEBORAH CHA Performed By: CONNOR Liao Reason For Study: atrial flutter,chf Exam Location: [facility]. Interpretation Summary Left ventricle is of normal size. Wall thickness is mildly increased. The left ventricular ejection fraction is 29% by Braun's biplane. There is global hypokinesis with regional variation. The right ventricle is probably normal in size. Right ventricular systolic function is mildly decreased. There is mild to moderate mitral regurgitation. Procedure Complete-[id number]. Image enhancement Definity was used for left [...] Note Emre Corbett MD - 12/13/2023 [address] [place] [id number] Echocardiogram Report Name: RAJAN FAULKNER Study Date: 407:07 AMBP: 121/89 mmHg Patient Location:[facility] : 1950 Height: 173 cm Account: [id number] Age: 72 yrs Weight: 81 kg Gender: Male BSA: 1.9 m2 Ordering Physician: NING BOLIVAR Referring Physician: DEBORAH CHA Performed By: CONNOR Liao Reason For Study: atrial flutter,chf Exam Location: [facility]. Interpretation Summary Left ventricle is of normal size. Wall thickness is mildly increased. Theleft ventricular ejection fraction is 29% by Braun's biplane. There isglobal hypokinesis with regional variation. The right ventricle is probably normal in size. Right ventricularsystolic function is mildly decreased. There is mild to moderate mitral regurgitation. Procedure Complete-[id number]. Image enhancement Definity was used for left [...] 65 - 199 mg/dL 12/13/2023 8:38 AM [facility] Comment:Glucose Concentratio n >=200 mg/dL plus symptoms is consistent with Diabetes Mellitus. Blood Urea Nitrogen 25(H) 10 - 20 mg/dL 12/13/2023 8:38 AM T [facility] Creatinine 1.31 0.80 - 1.50 mg/dL 12/13/2023 8:38 AM [facility] Sodium 140 135 - 145 mMol/L 12/13/2023 8:38 AM [facility] Potassium 3.3(L) 3.5 - 5.0 mMol/L 12/13/2023 8:38 AM [facility] Chloride 99 98 - 107 mMol/L 12/13/2023 8:38 AM [facility] Carbon Dioxide 28 22 - 31 mMol/L 12/13/2023 8:38 AM EDT [facility] Anion Gap 13 5 - 15 mMol/L 12/13/2023 8:38 AM EDT [facility] Calcium 9.3 8.5 - 10.5 mg/dL 12/13/2023 8:38 AM EDT [facility] Est Glomerular Filtration Rate - Male 57 mL/min/1. 73 m?? 12/13/2023 8:38 AM EDT [facility] Comment: This patient's [...] AM EDT Layo Starr MD CHEMISTRY ORDERABLES [facility] [place] [address] * Lipid Panel (Reflex Direct LDL) (12/13/2023 2:22 AM EDT) [facility] Cholesterol, Total 141 mg/dL 12/13/2023 3:05 AM EDT [facility] Comment: Desirable: < 200 mg/dL Borderline High: 200 - 239 mg/dL High: > or = 240 mg/dL Triglyceride 83 mg/dL 12/13/2023 3:05 AM EDT [facility] Comment: Normal: <150 mg/dL Borderline High: 150-199 mg/dL High: 200-499 mg/dL Very High: > or =500 mg/dL HDL Cholesterol 54 mg/dL 10/04/202 4 3:05 AM [facility] Comment:Males: High Risk: <4 0 mg/dL LDL Cholesterol 71 mg/dL 3:05 AM [facility] Comment: Desirable: <100 mg/dL Above Desirable: 100-129 mg/dL Borderline High: 130-159 mg/dL High: 160-189 mg/dL Very High: > or =190 mg/dL Note: LDL calculation updated to the NIH LDL formula as of 10/13/2023 Non-HDL Cholesterol 87 mg/dL 12/13/2023 3:05 AM [facility] Comment: Desirable: <130 mg/dL Above Desirable: 130-159 mg/dL Borderline High: 160-189 mg/dL High: 190-219 mg/dL Very High: > or = 220 mg/dL Blood VENOUS BLOOD SPECIMEN / Unknown IP Care Team Draw / Unknown 12/13/2023 2:22 AM EDT 12/13/2023 2:35 AM EDT [facility] - 12/13/2023 3:05 AM EDT It [...] ACC/AHA Guidelines (most recently Matt et al. JACC 12/12/21): * For individuals with atherosclerotic cardiovascular [...] disease) Ning Bolivar MD CHEMISTRY OR DERABLES [facility] [place] [address] * XR Chest PA & Lateral (Generic) (12/12/2023 10:47 PM EDT) [employer] WORKSTATION ID [id number] RAD Anatomical Region Laterality Modality Chest N/A [...] who have questions please contact the health direct care counselor that requested your imaging first. ? Electronically signed by: Maryann Magallanes MD, [facility] ([phone]), at 12/13/2023 2:25 AM Narrative 12/13/2023 2:25 [...] patients who have questions please contactthe health direct care counselor that requested your imaging first. Electronically signed by: Maryann Magallanes MD, [facility]([phone]), at 12/13/2023 2:25 AM Ning Bolivar MD IMG DX ORDER PHILOMENA * (ABNORMAL) CBC (with Diff) (12/12/2023 8:42 PM EDT) White Blood Cell 10.33(H) 4.00 - 9.50 x10(3)/mc L 12/12/2023 9:12 PM [facility] Red Blood Cell 4.78 4.58 - 5.54 x10(6)/mc L 12/12/2023 9:12 PM [facility] Hemoglobin 15.1 13.7 - 16.5 g/dL 12/12/2023 9:12 PM [facility] Hematocrit 45.4 40.5 - 48.5 % 12/12/2023 9:12 PM [facility] Mean Cell Volume 95.0(H) 82.9 - 93.1 fL 12/12/2023 9:12 PM [facility] Mean Cell Hemoglobin 31.6 27.5 - 32.1 pg 12/12/2023 9:12 PM [facility] Mean Cell Hemoglobin Concentration 33.3 32.0 - 35.7 g/dL 12/12/2023 9:12 PM [facility] Platelet 236 145 - 357 x10(3)/mc L 12/12/2023 9:12 PM [facility] Mean Platelet Volume 9.8 7.6 - 12.9 fL 12/12/2023 9:12 PM [facility] RDW Standard Deviation 50.2(H) 36.0 - 45.0 fL 12/12/2023 9:12 PM [facility] RDW coefficient of variation 14.4(H) 11.4 - 13.8 % 12/12/2023 9:12 PM [facility] NRBC% auto 0.0 % 12/12/2023 9:12 PM [facility] NRBC Absolute <0.01 <0.01 x10(3)/mc L 12/12/2023 9:12 PM [facility] Neutrophil % 76.7 % 12/12/2023 9:12 PM [facility] Neutrophil Absolute (ANC) - Automated 7.92(H) 1.70 - 6.10 x10(3)/mc L 12/12/2023 9:12 PM EDT [facility] Lymph % 11.5 % 12/12/2023 9:12 PM EDT [facility] Lymph Absolute 1.19 0.90 - 3.20 x10(3)/mc L 12/12/2023 9:12 PM EDT [facility] Monocyte % 11.2 % 12/12/2023 9:12 PM EDT [facility] Monocyte Absolute 1.16(H) 0.30 - 0.90 x10(3)/mc L 12/12/2023 9:12 PM EDT [facility] Eos % 0.0 % 12/12/2023 9:12 PM EDT [facility] Eos Absolute <0.04 0.00 - 0.40 x10(3)/mc L 12/12/2023 9:12 PM EDT [facility] Basophil % 0.4 % 12/12/2023 9:12 PM EDT [facility] Baso Absolute 0.04 0.00 - 0.10 x10(3)/mc L 12/12/2023 9:12 PM EDT [facility] Immature Gran % 0.2 % 9:12 PM EDT [facility] Immature Gran Absolute <0.04 0.00 - 0.04 x10(3)/mc L 12/12/2023 9:12 PM EDT [facility] Blood VENOUS BLOOD SPECIMEN / Unknown Venipuncture / Unknown 12/12/2023 8:42 PM EDT 12/12/2023 8:46 PM EDT Ning Bolivar MD HEMATOLOGY O RDERABLES [facility] [place] [address] * APTT (12/12/2023 8:41 PM EDT) [facility] Partial Thromboplastin Time 32 25 - 37 sec 12/12/2023 9:22 PM EDT [facility] Comment: The PTT is NOT appropriate for heparin monitoring. Use the Anti-Xa level for heparin monitoring (HEP UFH) or LMWH monitoring (HEP LMW). A PTT less than 37 seconds generally indicates adequate hemostasis. Blood VENOUS BLOOD SPECIMEN / Unknown Venipuncture / Unknown 12/12/2023 8:41 PM EDT 12/12/2023 8:46 PM EDT Ning Bolivar MD HEMATOLOGY O RDERABLES [facility] [place] [address] * (ABNORMAL) Hepatic Function Panel (12/12/2023 8:41 PM EDT) [facility] Albumin 4.5 3.2 - 5.2 g/dL 12/13/2023 2:11 AM EDT [facility] Aspartate Aminotransferase 12/13/2023 2:11 AM EDT [facility] Comment:Unable to report due to hemolysis. Alanine Aminotransferase 14 0 - 55 unit/L 12/13/2023 2:11 AM EDT [facility] Alkaline Phosphatase 71 40 - 130 unit/L 12/13/2023 2:11 AM EDT [facility] Bilirubin, Total 1.3 <=1.3 mg/dL 12/13/2023 2:11 AM EDT [facility] Bilirubin, Direct 0.4(H) 0.0 - 0.3 mg/dL 12/13/2023 2:11 AM EDT [facility] Protein, Total 8.2(H) 6.1 - 8.0 g/dL 12/13/2023 2:11 AM EDT [facility] Blood VENOUS BLOOD SPECIMEN / Unknown Venipuncture / Unknown 12/12/2023 8:41 PM EDT 12/12/2023 8:46 PM EDT Ning Bolivar MD CHEMISTRY OR DERABLES [facility] [place] [address] * (ABNORMAL) Prothrombin Time (12/12/2023 8:41 PM EDT) Prothrombin Time 13.2(H) 9.4 - 12.5 sec 12/12/2023 9:22 PM EDT [facility] International Normalization Ratio 1.2 <=4.9 12/12/2023 9:22 PM EDT [facility] Comment: An INR < 2.0 indicates [...] MD HEMATOLOGY O RDERABLES Performing Organization Address [facility]/ZIP Co de Phone Number [facility] [place] [address] * (ABNORMAL) pro-Brain Natriuretic Peptide (12/12/2023 8:41 PM EDT) NT-proBNP 6,282(H) <=124 pg/mL 12/13/2023 1:41 AM EDT [facility] Blood VENOUS BLOOD SPECIMEN / Unknown Venipuncture / Unknown 12/12/2023 8:41 PM EDT 12/12/2023 8:46 PM EDT Ning Bolivar MD CHEMISTRY OR DERABLES [facility] [place] [address] * TSH (12/12/2023 8:41 PM EDT) Thyroid Stimulating Hormone 0.85 0.27 - 4.20 mcIU/mL 12/13/2023 1:41 AM EDT [facility] Blood VENOUS BLOOD SPECIMEN / Unknown Venipuncture / Unknown 12/12/2023 8:41 PM EDT 12/12/2023 8:46 PM EDT Ning Bolivar MD CHEMISTRY OR DERABLES [facility] [place] [address] * Phosphorus (12/12/2023 8:41 PM EDT) Phosphorus 3.6 2.5 - 4.5 mg/dL 12/13/2023 1:43 AM EDT [facility] Blood VENOUS BLOOD SPECIMEN / Unknown Venipuncture / Unknown 12/12/2023 8:41 PM EDT 12/12/2023 8:46 PM EDT Ning Bolivar MD CHEMISTRY OR DERABLES Performing Organization Address City/[facility]/ZIP Co de Phone Number [facility] [place] [address] * Magnesium (12/12/2023 8:41 PM EDT) Magnesium 0.86 0.69 - 1.07 mMol/L 12/13/2023 1:43 AM EDT [facility] Blood VENOUS BLOOD SPECIMEN / Unknown Venipuncture / Unknown 12/12/2023 8:41 PM EDT 12/12/2023 8:46 PM EDT Ning Bolivar MD CHEMISTRY OR DERABLES [facility] [place] [address] * (ABNORMAL) Basic Metabolic Panel (12/12/2023 8:41 PM EDT) Glucose 114 65 - 199 mg/dL 12/13/2023 1:55 AM [facility] Comment:Glucose Concentratio n >=200 mg/dL plus symptoms is consistent with Diabetes Mellitus. Blood Urea Nitrogen 21(H) 10 - 20 mg/dL 12/13/2023 1:55 AM [facility] Creatinine 1.28 0.80 - 1.50 mg/dL 12/13/2023 1:55 AM [facility] Sodium 139 135 - 145 mMol/L 12/13/2023 1:55 AM [facility] Potassium 3.5 3.5 - 5.0 mMol/L 12/13/2023 1:55 AM [facility] Chloride 96(L) 98 - 107 mMol/L 12/13/2023 1:55 AM [facility] Carbon Dioxide 20(L) 22 - 31 mMol/L 12/13/2023 1:55 AM [facility] Anion Gap 23(H) 5 - 15 mMol/L 12/13/2023 1:55 AM [facility] Calcium 9.9 8.5 - 10.5 mg/dL 12/13/2023 1:55 AM [facility] Est Glomerular Filtration Rate - Male 59 mL/min/1. 73 m?? 12/13/2023 1:55 AM [facility] Comment: This patient's estimated GFR was [...] EDT Ning Bolivar MD CHEMISTRY OR DERABLES [facility] [place] [address] * EKG 12 Lead (12/12/2023 6:31 PM EDT) Ventricular rate 153 BPM MUSE SYSTEM Atrial Rate 306 BPM MUSE SYSTEM QRS Duration 96 ms MUSE SYSTEM Q-T Interval 300 ms MUSE SYSTEM QTC Calculated (Bezet) 479 ms MUSE SYSTEM Calculated R Reserve 100 degrees MUSE SYSTEM Calculated T Reserve -112 degrees MUSE SYSTEM INTERPRETATION Atrial flutter with 2:1 A-V conduction Rightward axis Minimal voltage criteria for LVH, may be normal variant ( Nitro product ) Nonspecific T wave abnormality Abnormal ECG When compared with ECG of 08-NOV-2022 13:18, Atrial flutter has replaced Sinus rhythm Vent. rate has increased BY 106 BPM Confirmed by MD YOCASTA, DANIELLE ([id number]) on 12/12/2023 9:43:38 PM MUSE SYSTEM 12/12/2023 6:31 PM EDT 12/12/2023 9:43 PM EDT Tiera Goldsmith MD ECG ORDERABLES MUSE SYSTEM documented in this encounter Visit Diagnoses Not on filedocumented in this encounter Admitting Diagnoses Diagnosis Atrial flutter documented in this encounter Administered Medications Inactive Administered Medications - up to 3 most recent administrations Medication Order MAR Action Action Date Dose Rate Site acetaminophen (Tylenol) tablet 650 mg 650 mg, Oral, EVERY 4 HOURS PRN, Starting on Stephanie 12/12/23 at 2026, Until 12/16/23 at 1632, Pain, Headaches, Maximum dose of acetaminophen is 4,000 mg from all sources in 24 hours., Routine Given 12/15/2023 7:47 PM EDT 650 mg Given 12/14/2023 8:24 PM EDT 650 mg albuteroL 90 mcg/actuation inhaler 2 puff 2 puff, Inhalation, EVERY 6 HOURS PRN, Starting on Stephanie 12/12/23 at 2026, Until 12/16/23 at 1632, Wheezing, Routine, Is [...] 12/14/2023 9:02 AM EDT 1,000 mcg digoxin (Lanoxin) tablet 250 mcg 250 mcg, Oral, DAILY, First dose (after last modification) on Garita 12/15/23 at 0900, Until Discontinued, Routine Given 12/16/2023 10:11 AM EDT 250 mcg Given 12/15/2023 8:10 AM EDT 250 mcg docusate sodium (Colace) capsule 100 mg 100 mg, Oral, 2 TIMES DAILY, First dose on Stephanie 12/12/23 at 2100, Until Discontinued, Routine Given 12/14/2023 9:05 AM EDT 100 mg Given 12/13/2023 8:44 PM EDT 100 mg Given 12/13/2023 8:56 AM EDT 100 mg famotidine (Pepcid) tablet 20 mg 20 mg, Oral, 2 TIMES DAILY, First dose on Stephanie 12/12/23 at 2100, Until Discontinued, Routine Given 12/16/2023 8:35 AM EDT 20 mg Given 12/15/2023 9:00 PM EDT 20 mg Given 12/15/2023 8:10 AM EDT 20 mg furosemide (Lasix) tablet 40 mg 40 mg, Oral, DAILY, First dose (after last modification) on [facility] 12/14/23 at 0900, Until Discontinued, Routine Given [...] Given 12/14/2023 9:02 AM EDT 200 mg lidocaine (Xylocaine) 5 % ointment PRN, Starting on Sat12/13/23 at 1046, Until Sat12/13/23 at 1217, Intra-Operative (Intra-Procedure) Given 12/13/2023 10:46 AM EDT 1 inch 20-Other (document i n comment section) losartan (Cozaar) tablet 25 mg 25 mg, Oral, DAILY, First dose on Sat12/14/23 at 0900, Until Discontinued, Routine Given 12/16/2023 8:35 AM EDT 25 mg Given 12/15/2023 8:10 AM EDT 25 mg Given 12/14/2023 9:02 AM EDT 25 mg metoprolol (LOPRESSOR) injection 5 mg 5 mg, [...] Given 12/15/2023 9:01 PM EDT 100 mg potassium chloride ER (Klor-Con M) crystal tablet [...] on 12/15/23 at 1700, Last dose on Sat01/05/24 at 0900, Take with food., Routine, rivaroxaban (Xarelto) Indication: Other Indication, Please document indication (see Lexicomp for detailed information on dosages and warnings/precautions): CARROLL thrombus and afib Given 12/16/2023 8:36 AM EDT 15 mg Given 12/15/2023 4:11 PM EDT 15 mg sodium chloride 0.9 % (flush) (BD PosiFlush Normal Saline 0.9) flush 5 mL 5 mL, Intravenous, 2 TIMES DAILY, First dose on Sat12/12/23 at 2100, Until Discontinued, Routine Given 12/16/2023 [...] on Sat12/15/23 at 0900, Until Discontinued, Routine 0810 (Given - Provider: Ewa Palencia RN) 1011 (Given - Provider: Ewa Palencia RN) docusate [...] Brittney Jackson RN - Reason: Patient/family refused) 899 (Not Given - Provider: Ewa Palencia RN - Reason: Patient/family refused) enoxaparin (Lovenox) (80 mg/0.8 mL) subcutaneous injection 80 mg (COMPLETED) 80 mg, Subcutaneous, EVERY 12 HOURS SCHEDULED (2 times per day), 1 dose, First dose (after last modification) on 12/14/23 at 0900, Routine 904 (Given - Provider: Gregory Lizarraga RN) famotidine (Pepcid) tablet 20 mg 20 mg, Oral, 2 TIMES DAILY, First dose on Stephanie 12/12/23 at 2100, Until Discontinued, Routine 903 (Given - Provider: Gregory Lizarraga RN)2023 (Given - Provider: Brittney Jackson RN) 08 (Given - Provider: Ewa Palencia RN)2099 (Given - Provider: Brittney Jackson RN) 0835 (Given - Provider: Ewa Palencia RN) furosemide (Lasix) tablet 40 mg 40 mg, Oral, DAILY, First dose (after last modification) on 12/14/23 at 0900, Until Discontinued, Routine 09 (Given - Provider: Gregory Lizarraga RN) 08 (Given - Provider: Ewa Palencia RN) 0836 (Given - Provider: Ewa Palencia RN) hydrOXYchloroQUINE (Plaquenil) tablet 200 mg 200 mg, Oral, DAILY, First dose on Sat12/13/23 at 0900, Until Discontinued, Routine 09 (Given - Provider: Gregory Lizarraga RN) 0810 (Given - Provider: Ewa Palencia RN) 0836 (Given - Provider: Ewa Palencia RN) losartan (Cozaar) tablet 25 mg 25 mg, Oral, DAILY, First dose on 12/14/23 at 0900, Until Discontinued, Routine 0902 (Given - Provider: Gregory Lizarraga RN) 0810 (Given - Provider: Ewa Palencia RN) 0835 (Given - Provider: Ewa Palencia RN) magnesium sulfate 1 g in dextrose 5% [...] Morelos RN) 0019 (Given - Provider: Brittney Jackson, CHRISTINA)0632 (Given - Provider: Brittney Jackson, CHRISTINA) metoprolol tartrate (Lopressor) tablet 50 mg (COMPLETED) [...] crush, chew, or suck on tablet., Routine 09 (Given - Provider: Gregory Lizarraga RN) potassium chloride ER (Klor-Con M) crystal tablet 40 mEq 40 mEq, Oral, DAILY, First dose on 12/13/23 at 1215, Until Discontinued, potassium chloride ER [...] Gregory Lizarraga RN)2028 (Given - Provider: Brittney Jackson, CHRISTINA) 810 (Given - Provider: Ewa Palencia, CHRISTINA)2101 (Given - Provider: Brittney Jackson, CHRISTINA) 0837 (Given - Provider: Ewa Palencia, CHRISTINA) spironolactone (Aldactone) tablet 25 mg 25 mg, Oral, DAILY, First dose on Stephanie 12/12/23 at 2045, Until Discontinued, DO NOT SPLIT, CRUSH OR OPEN, Routine 900 (Given - Provider: Gregory Lizarraga RN) 08 (Given - Provider: Ewa Palencia, CHRISTINA) 0836 (Given - Provider: Ewa Palencia, CHRISTINA) tamsulosin (Flomax) capsule 0.4 mg 0.4 mg, Oral, DAILY, First dose on Sat12/13/23 at 0900, Until Discontinued, DO NOT CRUSH OR CHEW, Routine 09 (Given - Provider: Gregory Lizarraga RN) 08 (Given - Provider: Ewa Palencia RN) 0836 (Given - Provider: Ewa Palencia, CHRISTINA) tiotropium (Spiriva Respimat) 2.5 mcg/actuation inhaler 2 puff 2 puff, Inhalation, DAILY, First dose on Sat12/13/23 at 0900, Until Discontinued, Must be primed prior to first administration, Routine 904 (Given - Provider: Gregory Lizarraga RN) 08 (Given - Provider: Ewa Palencia RN) 0836 (Given - Provider: Ewa Palencia RN) PRN Medication Order 12/14/2023 12/15/2023 12/16/2023 acetaminophen (Tylenol) tablet 650 mg 650 mg, Oral, EVERY 4 HOURS PRN, Starting on Tsephanie 12/12/23 at 2025, Until 12/16/23 at 1632, Pain, Headaches, Maximum dose of acetaminophen is 4,000 mg from all sources in 24 hours., Routine 2023 (Given - Provider: Brittney Jackson, RN) 1946 (Given - Provider: Brittney Jackson, CHRISTINA) [...] Starting on Stephanie 12/12/23 at 2025, Until Sat12/16/23 at 1632, Constipation, Administer if needed per [...] Starting on Stephanie 12/12/23 at 2025, Until Sat12/16/23 at 1632, for discomfort with PIV insertion, Routine LORazepam (Ativan) tablet 0.5 mg 0.5 mg, Oral, EVERY 6 HOURS PRN, Starting on Stephanie 12/12/23 at 2025, Until 12/16/23 at 1632, Anxiety, Routine magnesium hydroxide (Milk of Magnesia) (80mg/mL) oral liquid 2,400 mg 2,400 mg (30 mL), Oral, DAILY PRN, Starting on Sat12/12/23 at 2025, Until Sat12/16/23 at 1632, Constipation, 30 mL regular (400 mg/5 mL) = 10 mL concentrate (2400 mg/10 mL), Routine metoprolol (LOPRESSOR) injection 5 mg 5 mg, Intravenous, EVERY 5 MIN PRN, Starting on Sat12/12/23 at 194, Until Sat12/16/23 at 1632, Elevated Heart Rate, [...] Routine documented in this encounter Care Teams Mobile Lab Technician Relationship Specialty Start Date End Date Tami Olivia [address] [place] [address] PCP - General Family Medicine 12/30/20 documented as of this encounter
--- OUTSIDE RECORDS SUMMARY | 2023-12-26 15:57 | XMS_ITS | Encounter Summary ---
Author Organization On License Of [facility] Address [facility] [place] [address] Care Team Providers Care Supervisor Lending Activities Name Role Phone Tami Olivia Primary Care Provider [phone] Encounter Details Date Type Department Care Team (Latest Contact Info) Description 11/08/2022 Travel Social History Tobacco Use Types Packs/Day Years Used Date Smoking Tobacco: Former Cigarettes Smokeless Tobacco: Never Comments:1 ppd for the past year Alcohol Use Standard Drinks/Week Comments Not Currently 0 (1 standard drink = 0.6 oz pur e alcohol) [facility] Inpatient Questions Answer Date Recorded Does [...] 10:40 AM EST Office Visit Cardiology at [address] [place] [address] Chrissy Zepeda APRN [facility] [place] [address] Scheduled Procedures Name Priority Associated Diagnoses Date/Ti me CARDIOVERSION-ELECTIVE (WRVU 2) atrial flutter ELECTROPHYSIOLOGY PROCEDURE Persistent atrial fibrillation CARDIOVERSION-ELECTIVE (WRVU 2) persistent atrial fibrillation TRANSESOPHAGEAL ECHOCARDIOGR AM (WRVU 2.3) persistent atrial fibrillation documented as of this encounter Visit Diagnoses Not on filedocumented in this encounter Care Teams Supervisor Lending Activities Relationship Specialty Start Date End Date Tami Olivia [address] [place] [address] PCP - General Family Medicine 12/30/20 documented as of this encounter
--- OUTSIDE RECORDS SUMMARY | 2023-12-26 15:57 | XMS_ITS | Clinical Summary ---
Author Organization [facility] Address [facility] [place] [address] Care Team Providers Care Surgical Nurse Practitioner Name Role Phone SudhakarJacksonTami Primary Care Provider Allergies Active Allergy Reactions Criticality Noted Date Comments Cat Dander 12/07/2020 Runny eyes and nose Dog Dander 12/07/2020 Runny eyes and nose Medications Medication Sig Dispensed Refills Start Date End Date Status tamsulosin (Flomax) 0.4 mg Capsule Take 0.4 mg by mouth daily. Active hydrOXYchloroQUINE (Plaquenil) 200 mg Tablet Take 200 mg by mouth Daily. 04/04/2018 Active cholecalciferol, Vitamin D3, (Vitamin D3) 1,000 unit Tablet Take 1 tablet by mouth daily. 11/01/2014 Active cyanocobalamin, Vitamin B-12, (Vitamin B-12) 1,000 mcg tablet Take 1,000 mcg by mouth daily. Active albuteroL 90 mcg/actuation inhaler (HFA) Inhale 2 puffs into the lungs every 6 hours as needed for Wheezing. Use with Spacer 2 each 12/16/2023 Active rivaroxaban (Xarelto) 15 mg tablet Take 1 tablet by mouth 2 times daily for 21 days. 42 tablet 12/16/2023 01/06/2024 Active rivaroxaban (Xarelto) 20 mg tablet Take 1 tablet by mouth nightly. 90 tablet 3 01/07/2024 Active Spiriva Respimat 2.5 mcg/actuation inhaler Inhale 1 puff into the lungs daily. 2 each 12/16/2023 Active digoxin (Lanoxin) 125 mcg (0.125 mg) tablet Take 2 tablets by mouth daily. 90 tablet 12/16/2023 Active furosemide (Lasix) 40 mg tablet Take 1 tablet by mouth daily. 90 tablet 12/16/2023 Active losartan (Cozaar) 25 mg tablet Take 1 tablet by mouth daily. 90 tablet 12/16/2023 Active metoprolol tartrate (Lopressor) 100 mg tablet Take 1 tablet by mouth 2 times daily. 180 tablet 12/16/2023 Active spironolactone (Aldactone) 25 mg tablet Take 1 tablet by mouth daily. 90 tablet 12/16/2023 Active Active Problems Problem Noted Date Diagnosed Date Atherosclerosis of coronary artery 12/12/2023 Caregiver stress 12/12/2023 Cataract 12/12/2023 Colorectal polyp detected on colonoscopy 024 Dyspnea and respiratory abnormalities 12/12/2023 Advanced care planning/counseling discussion 05/2023 Palliative care encounter 12/12/2023 Hearing loss, bilateral 12/12/2023 History of appendectomy 12/12/2023 History of lung cancer 12/12/2023 Hypertension 12/12/2023 Panic disorder 12/12/2023 Trapped lung 12/12/2023 Emphysema lung 12/12/2023 Supplemental oxygen dependent 12/12/2023 S/P thoracotomy 12/12/2023 S/P colonoscopy 12/12/2023 Stool guaiac positive 12/12/2023 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) 12/12/2023 Retinal hemorrhage 12/12/2023 Positive DEJON (antinuclear antibody) 12/12/2023 Personal history of nicotine dependence 12/12/19 24 Hypoxemia 12/12/2023 Atrial flutter 02/17/2022 Pleural effusion 02/08/2022 ADHD 11/05/2019 COPD (chronic obstructive pulmonary disease) Depression 11/05/2019 Palpitations 11/05/2019 Tobacco abuse 11/05/2019 Unspecified osteoarthritis, unspecified site Resolved Problems Problem Noted Date Diagnosed Date Resolved Date 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 Mass of upper lobe of left lung 02/27/2021 12/12/2023 Lupus anticoagulant positive 11/05/2019 12/12/2023 Encounters Date Type Department Care Team Description 12/13/2023 10:46 AM EDT Anesthesia Event [place] [address] Joseph Boogie MD Margulies, Jacob A, CRNA 12/13/2023 10:45 AM EDT - 12/13/2023 11:45 AM EDT Surgery Main Operating Room [address] Srini Null MD TRANSESOPHAGEAL ECHOCARDIOGRAM (WRVU 2.3) 12/12/2023 6:10 PM EDT - 12/16/2023 2:32 PM EDT Hospital Encounter Heart and Vascular Unit Level 4 Wing B at [place] [address] Tiera Goldsmith MD Vinod, Poornima, MD Typical atrial flutter; Congestive heart failure, unspecified HF chronicity, unspecified heart failure type Discharge Disposition: Home 12/11/2023 Telephone Cardiology [place] [address] Charbel Cerrato MD 12/11/2023 External Results Administration [place] [phone] 12/11/2023 Orders Only Cardiology at [address] Sekou Canales MD Persistent atrial fibrillation from [...] any time in the past 12 m [facility], were you homeless or living in a residential (including now)? No 12/13/2023 [facility] Inpatient Questions Answer Date Recorded Does Anyone [...] Mass Index 27.34 12/12/2023 6:15 PM EDT Plan of Treatment Upcoming Encounters Date Type Department Care Team (Late st Contact Info) Description 01/20/2024 10:40 AM EST Office Visit Cardiology at [address] [phone] Chrissy Zepeda APRN [facility] [address] Scheduled Procedures Name Priority Associated Diagnoses Date/Ti [...] - PCV) 12/25/1955 Hepatitis C Screening 12/25/1967 Tetanus/Diphtheria/Pertussis Vaccines (1 - Tdap) 12/24 Zoster vaccine (1 of 2) 12/25/1999 AAA Screen 2014 Covid-19 Vaccine (1 - 2022-24 season) 2023 Influenza (Flu) vaccine (1 o f 1 - Influenza standard series) 11/10/2023 Lipid Screening 12/12/2028 12/13/2023 Medical Devices Implanted Type Area Certified Surgical Technologist Device Identifier Shelf Expiration Date Model / Serial / Lot Patch Vascular [id number] Straight Abd Soft Conformable ([id number]) (Autore[employer]) - [id number] Implanted:Qty: 1 on 05/18/2022 by Gilmer Gutiérrez MD at [facility] IMPLANTS Left: Chest Wall [employer] AN [id number] 12/04/2026 [id number] / [id number] / NA Procedures Procedure Name Priority Date/Time Associated Diagnosis Comments ECG SCAN 12/17/2023 12:00 AM EDT SCAN DOC: TELEMETRY STRIPS 12/16/2023 8:50 AM EDT DIGOXIN LEVEL Routine 12/16/2023 7:43 AM EDT MAGNESIUM Routine 12/16/2023 2:16 AM EDT CBC (WITH DIFF) Routine 12/16/2023 2:16 AM EDT BASIC METABOLIC PANEL Routine 12/16/2023 2:16 AM EDT SCAN DOC: TELEMETRY STRIPS 12/15/2023 9:39 PM EDT SCAN DOC: TELEMETRY STRIPS 12/15/2023 8:19 PM EDT SCAN DOC: TELEMETRY STRIPS 12/15/2023 4:58 PM EDT SCAN DOC: TELEMETRY STRIPS 12/15/2023 7:34 AM EDT DIGOXIN LEVEL Routine 12/15/2023 2:31 AM EDT MAGNESIUM Routine 12/15/2023 2:31 AM EDT CBC (WITH DIFF) Routine 12/15/2023 2:31 AM EDT BASIC METABOLIC PANEL Routine 12/15/2023 2:31 AM EDT SCAN DOC: TELEMETRY STRIPS 12/14/2023 9:27 PM EDT SCAN DOC: TELEMETRY STRIPS 12/14/2023 8:10 PM EDT SCAN DOC: TELEMETRY STRIPS 12/14/2023 4:47 PM EDT SCAN DOC: TELEMETRY STRIPS 12/14/2023 8:42 AM EDT DIGOXIN LEVEL Routine 12/14/2023 8:08 AM EDT MAGNESIUM Routine 12/14/2023 3:02 AM EDT CBC (WITH DIFF) Routine 12/14/2023 3:02 AM EDT BASIC METABOLIC PANEL Routine 12/14/2023 3:02 AM EDT SCAN DOC: TELEMETRY STRIPS 12/14/2023 1:01 AM EDT SCAN DOC: TELEMETRY STRIPS 12/13/2023 8:48 PM EDT SCAN DOC: TELEMETRY STRIPS 12/13/2023 12:26 PM EDT SCAN DOC: TELEMETRY STRIPS 12/13/2023 12:19 PM EDT HARSH W LMTD SPECTRAL DOPPLER COLOR DOPPLER Routine 12/13/2023 12:02 PM EDT Typical atrial flutter SCAN DOC: TELEMETRY STRIPS 12/13/2023 11:44 AM EDT Cardioversion Elective Arrhythmia External (42029) 12/13/2023 10:38 AM EDT typical aflutter HARSH complete wo contrast ([id number]) 12/13/2023 10:38 AM EDT typical aflutter ECHO COMPLETE W CONTRAST Routine 12/13/2023 9:18 AM EDT Typical atrial flutter Congestive heart failure, unspecified HF chronicity, unspecified heart failure type SCAN DOC: TELEMETRY STRIPS 12/13/2023 8:49 AM EDT SCAN DOC: TELEMETRY STRIPS 12/13/2023 8:41 AM EDT SCAN DOC: TELEMETRY STRIPS 12/13/2023 8:41 AM EDT BASIC METABOLIC PANEL Routine 12/13/2023 7:55 AM EDT SCAN DOC: TELEMETRY STRIPS 12/13/2023 7:34 AM EDT SCAN DOC: TELEMETRY STRIPS 12/13/2023 7:34 AM EDT LIPID PANEL (REFLEX DIRECT LDL) Routine 12/13/2023 2:22 AM EDT SCAN DOC: TELEMETRY STRIPS 12/12/2023 11:40 PM EDT XR CHEST PA AND LATERAL Routine 12/12/2023 10:47 PM EDT SCAN DOC: TELEMETRY STRIPS 12/12/2023 9:38 PM EDT CBC (WITH DIFF) Routine 12/12/2023 8:42 PM EDT HC PARTIAL THROMBOPLASTIN TIME Routine 12/12/2023 8:41 PM EDT HEPATIC FUNCTION PANEL Routine 8:41 PM EDT PROTHROMBIN TIME Routine 12/12/2023 8:41 PM EDT PRO-BRAIN NATRIURETIC PEPTIDE Routine 12/12/2023 8:41 PM EDT TSH Routine 12/12/2023 8:41 PM EDT PHOSPHORUS Routine 12/12/2023 8:41 PM EDT MAGNESIUM Routine 12/12/2023 8:41 PM EDT BASIC METABOLIC PANEL Routine 12/12/2023 8:41 PM EDT EKG 12-LEAD Routine 12/12/2023 6:31 PM EDT EKG 12-LEAD STAT 12/12/2023 6:31 PM EDT Typical atrial flutter SCAN DOC: TELEMETRY STRIPS 12/12/2023 6:27 PM EDT SCAN DOC: TELEMETRY STRIPS 12/12/2023 6:24 PM EDT [facility] [place] EXTERNAL CARDIOLOGY RESULT Routine 12/11/2023 6:19 PM EDT from Last 3 Months Results * Scan Doc: ECG (12/17/2023 12:00 AM EDT) Narrative 12/17/2023 12:00 AM EDT Ordered by an unspecified provider. Scanning Provider MEDIA MGR SCAN EXT O RDR/RSLT * Scan Doc: Telemetry Strips (12/16/2023 8:50 AM EDT) Only the most recent of23 resultswithin the time period is included. Narrative 12/16/2023 8:50 AM EDT Ordered by an unspecified provider. Scanning Provider MEDIA MGR SCAN EXT O RDR/RSLT * Digoxin level (12/16/2023 7:43 AM EDT) Only the most recent of3 resultswithin the time period is included. Digoxin 1.0 0.8 - 2.0 mcg/L 12/16/2023 8:[address] [facility] Blood VENOUS BLOOD SPECIMEN / Unknown IP Care Team Draw / Unknown 12/16/2023 7:43 AM EDT 12/16/2023 8:06 AM EDT Layo Starr MD CHEMISTRY ORDERABLES [facility] [place] [address] * (ABNORMAL) CBC (with Diff) (12/16/2023 2:16 AM EDT) Only the most recent of4 resultswithin the time period is included. [facility] White Blood Cell 9.96(H) 4.00 - 9.50 x10(3)/mc L 12/16/2023 2:[address] [facility] Red Blood Cell 4.66 4.58 - 5.54 x10(6)/mc L 12/16/2023 2:[address] [facility] Hemoglobin 14.7 13.7 - 16.5 g/dL 12/16/2023 2:42 AM [facility] Hematocrit 43.2 40.5 - 48.5 % 12/16/2023 2:[address] [facility] Mean Cell Volume 92.7 82.9 - 93.1 fL 12/16/2023 2:42 AM [facility] Mean Cell Hemoglobin 31.5 27.5 - 32.1 pg 12/16/2023 2:[address] [facility] Mean Cell Hemoglobin Concentration 34.0 32.0 - 35.7 g/dL 12/16/2023 2:[facility] Platelet 241 145 - 357 x10(3)/mc L 12/16/2023 2:[address] [facility] Mean Platelet Volume 9.7 7.6 - 12.9 fL 12/16/2023 2:42 AM [facility] RDW Standard Deviation 46.5(H) 36.0 - 45.0 fL 12/16/2023 2:42 AM [facility] RDW coefficient of variation 13.8 11.4 - 13.8 % 12/16/2023 2:42 AM [facility] NRBC% auto 0.0 % 12/16/2023 2:42 AM [facility] NRBC Absolute <0.01 <0.01 x10(3)/mc L 12/16/2023 2:42 AM [facility] Neutrophil % 68.8 % 12/16/2023 2:42 AM [facility] Neutrophil Absolute (ANC) - Automated 6.85(H) 1.70 - 6.10 x10(3)/mc L 12/16/2023 2:42 AM [facility] Lymph % 18.0 % 12/16/2023 2:42 AM [facility] Lymph Absolute 1.79 0.90 - 3.20 x10(3)/mc L 12/16/2023 2:42 AM [facility] Monocyte % 11.4 % 12/16/2023 2:42 AM [facility] Monocyte Absolute 1.14(H) 0.30 - 0.90 x10(3)/mc L 12/16/2023 2:42 AM [facility] Eos % 1.0 % 12/16/2023 2:42 AM [facility] Eos Absolute 0.10 0.00 - 0.40 x10(3)/mc L 12/16/2023 2:42 AM [facility] Basophil % 0.6 % 12/16/2023 2:42 AM [facility] Baso Absolute 0.06 0.00 - 0.10 x10(3)/mc L 12/16/2023 2:[address] [facility] Immature Gran % 0.2 % 2:[address] [facility] Immature Gran Absolute <0.04 0.00 - 0.04 x10(3)/mc L 12/16/2023 2:[address] [facility] Blood VENOUS BLOOD SPECIMEN / Unknown IP Care Team Draw / Unknown 12/16/2023 2:16 AM EDT 12/16/2023 2:35 AM EDT Layo Starr MD HEMATOLOGY ORDERABLE S Performing Organization Address City/[facility] Co de Phone Number [facility] [place] [address] * Magnesium (12/16/2023 2:16 AM EDT) Only the most recent of4 resultswithin the time period is included. Magnesium 0.92 0.69 - 1.07 mMol/L 12/16/2023 3:[address] [facility] Blood VENOUS BLOOD SPECIMEN / Unknown IP Care Team Draw / Unknown 12/16/2023 2:16 AM EDT 12/16/2023 2:35 AM EDT Layo Starr MD CHEMISTRY ORDERABLES Performing Organization Address City/[facility] Co de Phone Number [facility] [place] [address] * (ABNORMAL) Basic Metabolic Panel (12/16/2023 2:16 AM EDT) Only the most recent of5 resultswithin the time period is included. Glucose 101 65 - 199 mg/dL 12/16/2023 3:[address] [facility] Comment:Glucose Concentratio n >=200 mg/dL plus symptoms is consistent with Diabetes Mellitus. Blood Urea Nitrogen 25(H) 10 - 20 mg/dL 12/16/2023 3:[address] [facility] Creatinine 1.18 0.80 - 1.50 mg/dL 12/16/2023 3:05 AM [facility] Sodium 137 135 - 145 mMol/L 12/16/2023 3:05 AM [facility] Potassium 3.8 3.5 - 5.0 mMol/L 12/16/2023 3:05 AM [facility] Chloride 100 98 - 107 mMol/L 12/16/2023 3:05 AM [facility] Carbon Dioxide 25 22 - 31 mMol/L 12/16/2023 3:05 AM [facility] Anion Gap 12 5 - 15 mMol/L 12/16/2023 3:05 AM [facility] Calcium 9.3 8.5 - 10.5 mg/dL 12/16/2023 3:05 AM [facility] Est Glomerular Filtration Rate - Male 65 mL/min/1. 73 m?? 12/16/2023 3:05 AM [facility] Comment: This patient's estimated GFR [...] AM EDT Layo Starr MD CHEMISTRY ORDERABLES [facility] [place] [address] * HARSH W LMTD SPECTRAL DOPPLER COLOR DOPPLER (12/13/2023 12:02 PM EDT) Anatomical Region Laterality Modality Cardiac Other 12/13/2023 10:1 2 AM EDT Narrative 12/13/2023 12:29 PM EDT ? Transesophageal Echocardiogram Report Name: RAJAN FAULKNER W ?Study Date: 12/13/2023 10:12 AM ? Patient Location: ^ORMN2^A : 1950 ? Account: [id number] Age: 72 yrs Gender: Male Ordering Physician: LAYO STARR Referring Physician: DEBORAH CHA Performed By: Ronni Morales MD Reason For Study: pre cardioversion Exam Location: [facility]. Interpretation Summary 1. There is heavy [...] RAJAN FAULKNER Study Date: 0:12 AM Patient Location:^ORMN2^A : 1950 Account: [id number] Age: 72 yrs Gender: Male Ordering Physician: LAYO STARR Referring Physician: DEBORAH CHA Performed By: Ronni Morales MD Reason For Study: pre cardioversion Exam Location: [facility]. Interpretation Summary 1. There is heavy [...] AM EDT Narrative 12/13/2023 9:27 AM EDT [address] [place] [address] ? Echocardiogram Report Name: RAJAN FAULKNER ?Study Date: 12/13/2023 07:07 AMBP: 121/89 mmHg ? Patient Location: ^471^A : 1950 ? Height: 173 cm ? Account: [id number] Age: 72 yrs ? Weight: 81 kg Gender: Male ?BSA: 1.9 m2 Ordering Physician: NING BOLIVAR Referring Physician: DEBORAH CHA Performed By: CONNOR Liao Reason For Study: atrial flutter,chf Exam Location: [facility]. Interpretation Summary Left ventricle is of normal size. Wall thickness is mildly increased. The left ventricular ejection fraction is 29% by Braun's biplane. There is global hypokinesis with regional variation. The right ventricle is probably normal in size. Right ventricular systolic function is mildly decreased. There is mild to moderate mitral regurgitation. Procedure Complete-36220. Image enhancement Definity was used for left [...] Note Emre Corbett MD - 12/13/2023 1 [place] [id number] Echocardiogram Report Name: RAJAN FAULKNER Study Date: 407:07 AMBP: 121/89 mmHg Patient Location:[facility] : 1950 Height: 173 cm Account: [id number] Age: 72 yrs Weight: 81 kg Gender: Male BSA: 1.9 m2 Ordering Physician: NING BOLIVAR Referring Physician: DEBORAH CHA Performed By: CONNOR Liao Reason For Study: atrial flutter,chf Exam Location: [facility]. Interpretation Summary Left ventricle is of normal size. Wall thickness is mildly increased. Theleft ventricular ejection fraction is 29% by Braun's biplane. There isglobal hypokinesis with regional variation. The right ventricle is probably normal in size. Right ventricularsystolic function is mildly decreased. There is mild to moderate mitral regurgitation. Procedure Complete-[id number]. Image enhancement Definity was used for left [...] Ning Bolivar MD ECHO ORDERAB LES * Lipid Panel (Reflex Direct LDL) (12/13/2023 2:22 AM EDT) [facility] Cholesterol, Total 141 mg/dL 12/13/2023 3:[address] [facility] Comment: Desirable: < 200 mg/dL Borderline High: 200 - 239 mg/dL High: > or = 240 mg/dL Triglyceride 83 mg/dL 12/13/2023 3:[address] [facility] Comment: Normal: <150 mg/dL Borderline High: 150-199 mg/dL High: 200-499 mg/dL Very High: > or =500 mg/dL HDL Cholesterol 54 mg/dL 3:[address] [facility] Comment:Males: High Risk: <4 0 mg/dL LDL Cholesterol 71 mg/dL 3:[address] [facility] Comment: Desirable: <100 mg/dL Above Desirable: 100-129 mg/dL Borderline High: 130-159 mg/dL High: 160-189 mg/dL Very High: > or =190 mg/dL Note: LDL calculation updated to the NIH LDL formula as of 10/13/2023 Non-HDL Cholesterol 87 mg/dL 12/13/2023 3:[address] [facility] Comment: Desirable: <130 mg/dL Above Desirable: 130-159 mg/dL Borderline High: 160-189 mg/dL High: 190-219 mg/dL Very High: > or = 220 mg/dL Blood VENOUS BLOOD SPECIMEN / Unknown IP Care Team Draw / Unknown 12/13/2023 2:22 AM EDT 12/13/2023 2:35 AM EDT [facility] - 12/13/2023 3:05 AM EDT It [...] ACC/AHA Guidelines (most recently Matt et [facility]. [facility] 12/12/21): * For individuals with atherosclerotic cardiovascular [...] disease) Ning Bolivar MD CHEMISTRY OR DERABLES [facility] [place] [address] * XR Chest PA & Lateral (Generic) (12/12/2023 10:47 PM EDT) [employer] WORKSTATION ID [id number] RAD Anatomical Region Laterality Modality Chest N/A [...] have questions please contact the health healthcare management consultant that requested your imaging first. ? Electronically signed by: Maryann Magallanes MD, [facility] ([phone]), at 12/13/2023 2:25 AM Narrative 12/13/2023 2:25 [...] who have questions please contactthe health healthcare management consultant that requested your imaging first. Electronically signed by: Maryann Magallanes MD, [facility]([phone]), at 12/13/2023 2:25 AM Ning Bolivar MD IMG DX ORDER PHILOMENA * APTT (12/12/2023 8:41 PM EDT) [facility] Partial Thromboplastin Time 32 25 - 37 sec 12/12/2023 9:22 PM EDT [facility] Comment: The PTT is NOT appropriate for heparin monitoring. Use the Anti-Xa level for heparin monitoring (HEP UFH) or LMWH monitoring (HEP LMW). A PTT less than 37 seconds generally indicates adequate hemostasis. Blood VENOUS BLOOD SPECIMEN / Unknown Venipuncture / Unknown 12/12/2023 8:41 PM EDT 12/12/2023 8:46 PM EDT Ning Bolivar MD HEMATOLOGY O RDERABLES Performing Organization Address City/[facility] Co de Phone Number [facility] [place] [address] * (ABNORMAL) Prothrombin Time (12/12/2023 8:41 PM EDT) Prothrombin Time 13.2(H) 9.4 - 12.5 sec 12/12/2023 9:[address] [facility] International Normalization Ratio 1.2 <=4.9 12/12/2023 9:[address] [facility] Comment: An INR < 2.0 [...] PM EDT Ning Bolivar MD HEMATOLOGY O RDERAJOSIE Performing Organization Address City/[facility]/ZIP Co de Phone Number [facility] [place] [address] * TSH (12/12/2023 8:41 PM EDT) Thyroid Stimulating Hormone 0.85 0.27 - 4.20 mcIU/mL 12/13/2023 1:[address] [facility] Blood VENOUS BLOOD SPECIMEN / Unknown Venipuncture / Unknown 12/12/2023 8:41 PM EDT 12/12/2023 8:46 PM EDT Ning Bolivar MD CHEMISTRY OR DERABLES [facility] [place] [address] * Phosphorus (12/12/2023 8:41 PM EDT) Phosphorus 3.6 2.5 - 4.5 mg/dL 12/13/2023 1:[address] [facility] Blood VENOUS BLOOD SPECIMEN / Unknown Venipuncture / Unknown 12/12/2023 8:41 PM EDT 12/12/2023 8:46 PM EDT Ning Bolivar MD CHEMISTRY OR DERABLES Performing Organization Address City/[facility]/ZIP Co de Phone Number [facility] [place] [address] * (ABNORMAL) pro-Brain Natriuretic Peptide (12/12/2023 8:41 PM EDT) NT-proBNP 6,282(H) <=124 pg/mL 12/13/2023 1:[address] [facility] Blood VENOUS BLOOD SPECIMEN / Unknown Venipuncture / Unknown 12/12/2023 8:41 PM EDT 12/12/2023 8:46 PM EDT Ning Bolivar MD CHEMISTRY OR DERABLES [facility] [place] [address] * (ABNORMAL) Hepatic Function Panel (12/12/2023 8:41 PM EDT) Albumin 4.5 3.2 - 5.2 g/dL 12/13/2023 2:[address] [facility] Aspartate Aminotransferase 12/13/2023 2:[address] [facility] Comment:Unable to report due to hemolysis. Alanine Aminotransferase 14 0 - 55 unit/L 12/13/2023 2:[address] [facility] Alkaline Phosphatase 71 40 - 130 unit/L 12/13/2023 2:[address] [facility] Bilirubin, Total 1.3 <=1.3 mg/dL 12/13/2023 2:[address] [facility] Bilirubin, Direct 0.4(H) 0.0 - 0.3 mg/dL 12/13/2023 2:[address] [facility] Protein, Total 8.2(H) 6.1 - 8.0 g/dL 12/13/2023 2:[address] [facility] Blood VENOUS BLOOD SPECIMEN / Unknown Venipuncture / Unknown 12/12/2023 8:41 PM EDT 12/12/2023 8:46 PM EDT Ning Bolivar MD CHEMISTRY OR DERABLES [facility] [place] [phone] * EKG 12 Lead (12/12/2023 6:31 PM EDT) Ventricular rate 153 BPM MUSE SYSTEM Atrial Rate 306 BPM MUSE SYSTEM QRS Duration 96 ms MUSE SYSTEM Q-T Interval 300 ms MUSE SYSTEM QTC Calculated (Bezet) 479 ms MUSE SYSTEM Calculated R [place] 100 degrees MUSE SYSTEM Calculated T [place] -112 degrees MUSE SYSTEM INTERPRETATION Atrial flutter with 2:1 A-V conduction Rightward axis Minimal voltage criteria for LVH, may be normal variant ( [place] product ) Nonspecific T wave abnormality Abnormal ECG When compared with ECG of 08-NOV-2022 13:18, Atrial flutter has replaced Sinus rhythm Vent. rate has increased BY 106 BPM Confirmed by MD RUST SALVATORE ([id number]) on 12/12/2023 9:43:38 PM MUSE SYSTEM 12/12/2023 6:31 PM EDT 12/12/2023 9:43 PM EDT Tiera Goldsmith MD ECG ORDERABLES MUSE SYSTEM * External Cardiology Result (12/11/2023 6:19 PM EDT) Anatomical Region Laterality Modality Other Historical Provider EXTERNAL CARDIOLO GY RESULT from Last 3 Months Advance Directives Documents on File Type Date Recorded Patient Vice President Diversity Expl anation Advance Directives and Livin g Will 12/16/2023 8:45 AM * Attempt Cardiopulmonary Resuscitation - Inpatient (Latest Code Status on File) Date Activated Date Inactivated Comments 12/12/2023 7:42 PM 12/16/2023 4:37 PM Question Answer Comments Code Status decision made by: Patient Content of discussion: per patient, he h as rescinded his prior advanced directive from 08/23/2022, he requests full code * Attempt Cardiopulmonary Resuscitation - Inpatient Date Activated Date Inactivated Comments 12/12/2023 6:50 PM 12/12/2023 7:42 PM Question Answer Comments Code Status decision made by: Patient Content of discussion: per patient requests * Attempt Cardiopulmonary Resuscitation - Inpatient Date Activated Date Inactivated Comments 11/08/2022 11:53 [...] Status decision made by: Patient Care Teams Surgical Nurse Practitioner Relationship Specialty Start Date End Date Tami Olivia [address] [place] [address] PCP - General Family Medicine 12/30/20
--- OUTSIDE RECORDS SUMMARY | 2023-12-26 15:57 | XMS_ITS | Encounter Summary ---
Author Organization [facility] Address [place] [address] Care Team Providers Care Radio Time Buyer Name Role Phone SudhakarJacksonTami Primary Care Provider [phone] Reason for Referral * Diagnostic Test (Routine) - New Request Specialty Diagnoses / Procedures Referred By Bert gautam Referred To Contact Cardiology Diagnoses Persistent atrial fibrillation Procedures Transesophageal Echocardiogram (HARSH) Sekou Canales MD [facility] [place] [address] [facility] [place] [address] Referral ID Status Reason Start Date Expiration Date Visits Requested Visits Authorized [id number] New Request Specialty Service Requested 12/11/2023 12/10/2024 1 1 * Diagnostic Test (Routine) - New Request Specialty Diagnoses / Procedures Referred By Bert t Referred To Contact Cardiology Diagnoses Persistent atrial fibrillation Procedures Trans Echo (HARSH) with Cardioversion Sekou Canales MD [facility] [place] [address] [facility] [place] [address] Referral ID Status Reason Start Date Expiration Date Visits Requested Visits Authorized [id number] New Request Specialty Service Requested 12/11/2023 12/10/2024 1 1 Encounter Details Date Type Department Care Team (Late st Contact Info) Description 12/11/2023 Orders Only Cardiology at [address] [phone] Sekou Canales MD [facility] [place] [address] Persistent atrial fibrillation Social History Tobacco Use Types Packs/Day Years Used Date Smoking Tobacco: Former Cigarettes Smokeless Tobacco: Never Comments:1 ppd for the past year Alcohol Use Standard Drinks/Week Comments Not Currently 0 (1 standard drink = 0.6 oz pur e alcohol) [facility] Inpatient Questions Answer Date Recorded Does Anyone [...] 10:40 AM EST Office Visit Cardiology at [address] [phone] Chrissy Zepeda APRN [facility] [place] [address] Scheduled Orders Name Type Priority Associated Diagnoses [...] fibrillation documented in this encounter Care Teams Radio Time Buyer Relationship Specialty Start Date End Date Tami Olivia [address] [place] [address] PCP - General Family Medicine 12/30/20 documented as of this encounter
--- OUTSIDE RECORDS SUMMARY | 2023-12-26 15:57 | XMS_ITS | Encounter Summary ---
Author Organization [facility] [place] [address] Care Team Providers Care Family Consumer Science Teacher Name Role Phone Tami Olivia Primary Care Provider [phone] Encounter Details Date Type Department Care Team (Late st Contact Info) Description 11/09/2022 Telephone Cardiology at [address] [address] Jaquelin Murdock Social History Tobacco Use Types [...] EDT Email sent to Hailey Cavanaugh at [facility] asking for pt to be scheduled there for f/up with Dr. Canales. Jaquelin Murdock Sr. Clinical Procedure Deputy/EP documented in this encounter Plan of Treatment Upcoming Encounters Date Type Department Care Team (Late st Contact Info) Description 01/20/2024 10:40 AM EST Office Visit Cardiology at [address] [phone] Chrissy Zepeda, MORTEZA [facility] [place] [address] Scheduled Procedures Name Priority Associated Diagnoses Date/Ti me CARDIOVERSION-ELECTIVE (WRVU 2) atrial flutter ELECTROPHYSIOLOGY PROCEDURE Persistent atrial fibrillation CARDIOVERSION-ELECTIVE (WRVU 2) persistent atrial fibrillation TRANSESOPHAGEAL ECHOCARDIOGR AM (WRVU 2.3) persistent atrial fibrillation documented as of this encounter Visit Diagnoses Not on filedocumented in this encounter Care Teams Family Consumer Science Teacher Relationship Specialty Start Date End Date Tami Olivia [address] [place] [address] PCP - General Family Medicine 12/30/20 documented as of this encounter
--- OUTSIDE RECORDS SUMMARY | 2023-12-26 15:57 | XMS_ITS | Encounter Summary ---
Author Organization [facility] Address [facility] [place] [address] Care Team Providers Care Bow Repairer Custom Name Role Phone Tami Olivia Primary Care Provider [phone] Encounter Details Date Type Department Care Team (Late st Contact Info) Description 12/11/2023 Telephone Cardiology [facility] [place] [phone] Charbel Cerrato MD [facility] [address] Social History Tobacco Use Types Packs/Day Years [...] 10:40 AM EST Office Visit Cardiology at [address] [address] Chrissy Zepeda APRN [facility] [place] [address] Scheduled Procedures Name Priority Associated Diagnoses Date/Ti me CARDIOVERSION-ELECTIVE (WRVU 2) atrial flutter ELECTROPHYSIOLOGY PROCEDURE Persistent atrial fibrillation CARDIOVERSION-ELECTIVE (WRVU 2) persistent atrial fibrillation TRANSESOPHAGEAL ECHOCARDIOGR AM (WRVU 2.3) persistent atrial fibrillation documented as of this encounter Visit Diagnoses Not on filedocumented in this encounter Care Teams Bow Repairer Custom Relationship Specialty Start Date End Date Tami Olivia [address] [place] [address] PCP - General Family Medicine 12/30/20 documented as of this encounter
--- OUTSIDE RECORDS SUMMARY | 2023-12-26 15:57 | XMS_ITS | Encounter Summary ---
Author Organization [facility] Address [facility] [place] [address] Care Team Providers Care Office Machines Wirer Name Role Phone Tami Olivia Primary Care Provider [phone] Encounter Details Date Type Department Care Team (Late st Contact Info) Description 06/12/2023 Orders Only Cardiology at [address] [phone] Sekou Canales MD [facility] [address] [place], [place] [id number] Persistent atrial fibrillation Social History Tobacco Use [...] AM EST Office Visit Cardiology at [address] [phone] Chrissy Zepeda APRN [facility] [place] [address] Scheduled Procedures Name Priority Associated Diagnoses Date/Ti me CARDIOVERSION-ELECTIVE (WRVU 2) atrial flutter ELECTROPHYSIOLOGY PROCEDURE Persistent atrial fibrillation CARDIOVERSION-ELECTIVE (WRVU 2) persistent atrial fibrillation TRANSESOPHAGEAL ECHOCARDIOGR AM (WRVU 2.3) persistent atrial fibrillation documented as of this encounter Visit Diagnoses Diagnosis Persistent atrial fibrillation Atrial fibrillation documented in this encounter Care Teams Office Machines Wirer Relationship Specialty Start Date End Date Tami Olivia [address] [place] [address] PCP - General Family Medicine 12/30/20 documented as of this encounter
--- OUTSIDE RECORDS SUMMARY | 2023-12-26 15:58 | XMS_ITS | Encounter Summary ---
Author Organization [facility] Address [facility] [place] [address] Care Team Providers Care Storage Battery Inspector And Tester Name Role Phone Tami Olivia Primary Care Provider [phone] Encounter Details Date Type Department Care Team (Latest Contact Info) Description 06/11/2022 2:15 PM EDT - 06/11/2022 11:59 PM EDT Hospital Encounter XRay at [address] [place] [address] Gilmer Gutiérrez MD [facility] [place] [address] Status post lung surgery Discharge Disposition: Home [...] Sig Dispensed Refills Start Date End Date tamsulosin (Flomax) 0.4 mg Capsule Take 0.4 mg by mouth daily. hydrOXYchloroQUINE (Plaquenil) 200 mg Tablet Take 200 mg by mouth Daily. 04/04/2018 cholecalciferol, Vitamin D3, (Vitamin D3) 1,000 unit Tablet Take 1 tablet by mouth daily. 11/01/2014 calcium carbonate-vitamin D3 600 mg-20 mcg (800 unit) Tablet Take 1 tablet by mouth daily. 03/29/2022 12/16/2023 AMIOdarone (Paceron) 200 mg Tablet Take 1 tablet by mouth daily. 30 tablet 11 03/05/2022 12/16/2023 bupropion HCl (WELLBUTRIN ORAL) Take 150 mg by mouth daily. 12/16/2023 albuterol sulfate (Proair Digihaler) 90 mcg/actuation aero powdr breath act w/sensor 4 times daily as needed. 12/16/2023 oxyCODONE (Roxicodone) 5 mg tablet Take 1 tablet by mouth every 6 hours as needed for Pain. 30 tablet 05/24/2022 11/07/2022 Spiriva Respimat 2.5 mcg/actuation Mist 01/26/2022 acetaminophen (Tylenol) 500 mg Tablet Take 2 tablets by mouth every 6 hours. 30 tablet 1 02/10/2022 12/16/2023 rivaroxaban (Xarelto) 20 mg Tablet Take 20 mg by mouth daily. 06/12/2023 metoprolol succinate XL (Toprol-XL) 25 mg Tablet Sustained Release 24 hr Take 100 mg by mouth daily. 12/12/2022 sildenafiL (VIAGRA) 50 mg Tablet TAKE 1/2 TO 1 TABLET BY MOUTH 30 MINUTES PRIOR TO SEXUAL ACTIVITY NEEDED. MAXIMUM DAILY DOSE 2 10/09/2021 12/12/2023 UNABLE TO FIND Cbd gummies to help with smoking cessation. 12/12/2023 documented as of this encounter Plan of Treatment Upcoming Encounters Date Type Department Care Team (Late st Contact Info) Description 01/20/2024 10:40 AM EST Office Visit Cardiology at [address] [phone] Chrissy Zepeda APRN [facility] [place] [address] Scheduled Procedures Name Priority Associated Diagnoses Date/Ti [...] who have questions please contact the health attending ambulatory care that requested your imaging first. ? Electronically signed by: Savanah Suazo MD, [facility] ([phone]), at 06/11/2022 4:12 PM Narrative 06/11/2022 4:12 [...] patients who have questions please contactthe health attending ambulatory care that requested your imaging first. Electronically signed by: Savanah Suazo MD, [facility] ([phone]), at 06/11/2022 4:12 PM Gilmer Gutiérrez MD IMG DX ORDERABLE S documented in this encounter Visit Diagnoses Diagnosis Status post lung surgery Other postprocedural status documented in this encounter Care Teams Storage Battery Inspector And Tester Relationship Specialty Start Date End Date Tami Olivia [address] [place] [address] PCP - General Family Medicine 12/30/20 documented as of this encounter
--- OUTSIDE RECORDS SUMMARY | 2023-12-26 15:58 | XMS_ITS | Encounter Summary ---
Author Organization [facility] Address [facility] [place] [address] Care Team Providers Care Division Officer Weapons Department Name Role Phone Tami Olivia Primary Care Provider [phone] Reason for Visit * Auth/Cert (Routine) Specialty Diagnoses / Procedures Referred By Bert t Referred To Contact Diagnoses Atrial flutter atrial flutter Procedures PRO CARDIOVERSION ELECTIVE ARRHYTHMIA EXTERNAL CARDIOVERSION-ELECTIVE (WRVU 2) Sekou Canales MD [facility] [place] [address] [facility] Referral ID Status Reason Start Date Expiration Date Visits Re quested Visits Authorized [id number] 1 1 Encounter Details Date Type Department Care Team (Late st Contact Info) Description 11/08/2022 12:30 PM EDT - 11/08/2022 1:00 PM EDT Surgery [place] [address] Sekou Canales MD [facility] [place] [address] CARDIOVERSION-ELECTIVE (WRVU 2) Social History Tobacco Use Types Packs/Day Years Used Date Smoking Tobacco: Former Cigarettes Smokeless Tobacco: Never Comments:1 ppd for the past year Alcohol Use Standard Drinks/Week Comments Not Currently 0 (1 standard drink = 0.6 oz pur e alcohol) [facility] Inpatient Questions Answer Date Recorded Does Anyone [...] the adhesive pads were placed, call the supervisor pastry control valve technician at . We will schedule a follow-up appointment with the supervisor pastry here, or you will be scheduled to [...] w/sensor 4 times daily as needed. 12/16/2023 Spiriva Respimat 2.5 mcg/actuation Mist 01/26/2022 acetaminophen [...] cessation. 12/12/2023 documented as of this encounter Progress Notes [...] 10:40 AM EST Office Visit Cardiology at [address] [phone] Chrissy Zepeda APRN [facility] [place] [address] Scheduled Orders Name Type Priority Associated Diagnoses [...] 6 PM EDT Cardioversion Elective Arrhythmia External ([id number]) 11/08/2022 12:38 PM EDT atrial flutter documented in this encounter Results * EKG 12 Lead (11/08/2022 1:18 PM EDT) Ventricular rate 47 BPM MUSE SYSTEM Atrial Rate 47 BPM MUSE SYSTEM P-R Interval 210 ms MUSE SYSTEM QRS Duration 104 ms MUSE SYSTEM Q-T Interval 476 ms MUSE SYSTEM QTC Calculated (Bezet) 421 ms MUSE SYSTEM Calculated P Crawford 71 degrees MUSE SYSTEM Calculated R Crawford 91 degrees MUSE SYSTEM Calculated T Crawford 59 degrees MUSE SYSTEM INTERPRETATION Sinus bradycardia with 1st degree A-V block with Premature atrial complexes Rightward axis Borderline ECG When compared with ECG of 08-NOV-2022 11:19, Sinus rhythm has replaced Atrial flutter Vent. rate has decreased BY ??42 BPM QT has shortened Confirmed by MD Bob, Sloan ([id number]) on 11/10/2022 3:59:25 PM MUSE SYSTEM 11/08/2022 [...] CRNA) documented in this encounter Care Teams Division Officer Weapons Department Relationship Specialty Start Date End Date Tami Olivia [address] [place] [address] PCP - General Family Medicine 12/30/20 documented as of this encounter
--- OUTSIDE RECORDS SUMMARY | 2023-12-26 15:58 | XMS_ITS | Encounter Summary ---
Author Organization [facility] [place] [place] [address] Care Team Providers Care Mail Order Biller Name Role Phone Tami Olivia Primary Care Provider [phone] Reason for Referral * Consultation (Routine) - Closed Specialty Diagnoses / Procedures Referred By Contact Referred To Contact Electrophysiology / Cardiology Diagnoses Atrial flutter, unspecified type AFL, on Amio but HR not controlled. Discuss AFL ablation Basilia Joseph MD [address] [place] [address] [facility] Cardiology [address] [place] [phone] Referral ID Status Reason Start Date Expiration Date V isits Requested Visits Authorized [id number] Closed Consult, Test & Treat PCP Updated and/or Approved 06/26/2022 06/26/2023 1 1 Encounter Details Date Type Department Care Team (Latest Contact Info) Description 06/26/2022 Transcribe Orders eDH Incoming Referrals [phone] Basilia Joseph MD Atrial flutter, unspecified type [...] Upcoming Encounters Date Type Department Care Team ([facility] st Contact Info) Description 01/20/2024 10:40 AM EST Office Visit Cardiology at [address] [phone] Chrissy Zepeda, MORTEZA [facility] [place] [address] Scheduled Procedures Name Priority Associated Diagnoses Date/Ti [...] type documented in this encounter Care Teams Mail Order Biller Relationship Specialty Start Date End Date Tami Olivia [address] [place] [address] PCP - General Family Medicine 12/30/20 documented as of this encounter
--- OUTSIDE RECORDS SUMMARY | 2023-12-26 15:58 | XMS_ITS | Encounter Summary ---
Author Organization [facility] Address [facility] [place] [address] Care Team Providers Care Production Line Technician Name Role Phone Tami Olivia Primary Care Provider [phone] Encounter Details Date Type Department Care Team (Late st Contact Info) Description 05/25/2022 Telephone Thoracic Surgery at [facility] [place] [phone] Megan Reza, RN Social History Tobacco Use [...] 10:40 AM EST Office Visit Cardiology at [address] [phone] Chrissy Zepeda APRN [facility] [place] [address] Scheduled Procedures Name Priority Associated Diagnoses Date/Ti me CARDIOVERSION-ELECTIVE (WRVU 2) atrial flutter ELECTROPHYSIOLOGY PROCEDURE Persistent atrial fibrillation CARDIOVERSION-ELECTIVE (WRVU 2) persistent atrial fibrillation TRANSESOPHAGEAL ECHOCARDIOGR AM (WRVU 2.3) persistent atrial fibrillation documented as of this encounter Visit Diagnoses Not on filedocumented in this encounter Care Teams Production Line Technician Relationship Specialty Start Date End Date Menapace-Tami Paz [address] [place] [address] PCP - General Family Medicine 12/30/20 documented as of this encounter
--- OUTSIDE RECORDS SUMMARY | 2023-12-26 15:58 | XMS_ITS | Encounter Summary ---
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 lobectomy of lung Pleural effusion Procedures CT Chest w Contrast Gilmer Gutiérrez MD [facility] [place] [place] [address] [facility] [place] [address] Referral ID Status Reason Start Date Expiration Date V isits Requested Visits Authorized [id number] Closed Specialty Service Requested 06/12/2022 12/12/2023 1 1 Encounter Details Date Type Department Care Team (Late st Contact Info) Description 06/11/2022 3:45 PM EDT Office [place] [address] Gilmer Gutiérrez MD [facility] [place] [address] Primary squamous cell carcinoma of [...] 10:40 AM EST Office Visit Cardiology at [address] [phone] Chrissy Zepeda APRN [facility] [place] [address] Scheduled Orders Name Type Priority Associated Diagnoses [...] effusion documented in this encounter Care Teams Roadability Machine Operator Relationship Specialty Start Date End Date Tami Olivia [address] [place] [address] PCP - General Family Medicine 12/30/20 documented as of this encounter
--- OUTSIDE RECORDS SUMMARY | 2023-12-26 15:58 | XMS_ITS | Encounter Summary ---
Author Organization [facility] Address [facility] [place] [address] Care Team Providers Care Construction Quality Control Manager Name Role Phone Tami Olivia Primary Care Provider [phone] Reason for Visit * Reason Onset Date Comments Appointment 08/22/2022 CT Encounter Details Date Type Department Care Team (Late st Contact Info) Description 08/22/2022 Telephone [place] [phone] Ramon Schneider, RN Appointment (CT) Social History [...] 10:40 AM EST Office Visit Cardiology at [address] [phone] Chrissy Zepeda, OUTSIDE PLANT CABLE ENGINEER [facility] CARDIOLOGY [place], [place] [phone] Scheduled Procedures Name Priority Associated Diagnoses Date/Ti me CARDIOVERSION-ELECTIVE (WRVU 2) atrial flutter ELECTROPHYSIOLOGY PROCEDURE Persistent atrial fibrillation CARDIOVERSION-ELECTIVE (WRVU 2) persistent atrial fibrillation TRANSESOPHAGEAL ECHOCARDIOGR AM (WRVU 2.3) persistent atrial fibrillation documented as of this encounter Visit Diagnoses Not on filedocumented in this encounter Care Teams Construction Quality Control Manager Relationship Specialty Start Date End Date Tami Olivia [address] [place] [address] PCP - General Family Medicine 12/30/20 documented as of this encounter
--- OUTSIDE RECORDS SUMMARY | 2023-12-26 15:58 | XMS_ITS | Encounter Summary ---
Author Organization [facility] Address [facility] [place] [address] Care Team Providers Care Workday Senior Associate Name Role Phone Tami Olivia Primary Care Provider [phone] Reason for Referral * Rehabilitation (Urgent) - Closed Specialty Diagnoses / Procedures Referred By Bert gautam Referred To Contact Rehabilitation Diagnoses Status post lung surgery Camilo Stevenson PA 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 [place] [address] [facility] Referral ID Status Reason Start Date Expiration Date Visits Re quested Visits Authorized [id number] 1 1 Encounter Details Date Type Department Care Team (Latest Contact Info) Description 05/18/2022 6:09 AM EST - 05/24/2022 3:00 PM EDT Hospital Encounter Surgical Unit Level 3 [place] [address] [facility] [address] [place]AC[place] [address] Status post lobectomy of lung; Atrial fibrillation, [...] Primary * Linda Mustafa PA - Physician Tung Nut Grower * Renu Donald PA - Physician Tung Nut Grower * Morales Armas MD - Resident Procedure: [...] Hospital Course: Rajan Marquez was admitted to [facility] on 05/18/2022 via the Same Day Program. [...] who have questions please contact the health progressive care nurse that requested your imaging first. Electronically signed by: Maryann Magallanes MD, [facility] ([phone]), at 05/18/2022 4:02 PM XR Chest PA & Lateral (Generic) (Exam End: 05/19/2022 11:06 AM) Impression Similar partially loculated moderate left hydropneumothorax. Thank you for letting us participate in the care of this patient. If you are a health care provider and have any questions regarding this report, please contact the number below. For patients who have questions please contact the health progressive care nurse that requested your imaging first. Electronically signed by: Savanah Suazo MD, [facility] ([phone]), at 05/19/2022 11:16 AM XR Chest PA [...] who have questions please contact the health progressive care nurse that requested your imaging first. Electronically signed by: Philip Church MD, [facility] ([phone]), at 05/23/2022 7:33 AM XR Chest PA [...] who have questions please contact the health progressive care nurse that requested your imaging first. Electronically signed by: Marcus Edwards MD, [facility] ([phone]), at 05/24/2022 8:58 AM XR Chest PA [...] who have questions please contact the health progressive care nurse that requested your imaging first. Electronically signed by: Marcus Edwards MD, [facility] ([phone]), at 05/24/2022 10:06 AM Pending Studies and [...] a nurse in the Thoracic Clinic at [phone]. After hours or on weekends or holidays please call: [phone] and ask to speak to the Thoracic Surgeon brand activation manager. Exercise & Activity Level: As you recover [...] sling until your follow up with Dr oFster in 2 weeks. Diet: You should follow a regular, healthy diet. Smoking: If you are a smoker, please avoid smoking. If you are a smoker who needs help quitting, please call the thoracic surgery clinic at [phone]. Driving: No driving for 1 week or [...] the Thoracic Clinic or the Thoracic Surgeon brand activation manager after hours. Please take over the [...] Expires XR Chest PA & Lateral (Generic) [[id number] Custom] 06/07/2022 12/07/2022 Process Instructions: Scheduling Instructions: Questions: Reason for exam and clinical history: s/p left thoracotomy and decortication Clinical information / bryan questions for radiologist: eval for effusion and/or ptx Where will study be performed?: [facility] Radiology Portable exam?: Stat read required?: Date of injury if applicable: Requested Time: Referral to Pulmonary Rehab [[id number] Custom] As directed Process Instructions: Scheduling Instructions: Questions: May include the following tests: Breathing Retraining: Diaphragmatic Techniques Provider Contact Information: Primary Care Provider: Tami Olivia [phone] Discharge References/Attachments: Discharge References/Attachments None For questions [...] a nurse in the Thoracic Clinic at [phone]. After hours or on weekends or holidays please call: [phone] and ask to speak to the Thoracic Surgeon brand activation manager. Exercise & Activity Level: As you recover [...] please call the thoracic surgery clinic at [phone]. Driving: No driving for 1 week or [...] the Thoracic Clinic or the Thoracic Surgeon brand activation manager after hours. Please take over the [...] w/sensor 4 times daily as needed. 12/16/2023 docusate sodium (Colace) 100 mg capsule Take [...] cane for ~ 2 weeks. 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 Enjoys 4-wheeling, kayaking and [...] in reach and aware to call for administrative staff supervisor assistance with all mobility. Education: Pt educated on ther-ex, breathing, LUE precautions and sling use- and to wait for LUE activity and ROM progression until MD follow, and to have supervision of administrative staff supervisor or family for safetywith all mobility Assessment: Rajan Marquez was seen today [facility] Pt friendly and pleasant and was [...] and d/c planning. LUIS MIGUEL PEREZ, PT Pager:[phone] Physical Therapy Inpatient Rehabilitation Department * Radha [...] IR Thoracentesis Left 11/08/2021 Ramírez Ramirez MD [facility] INTERVENTIONL RAD ??? PRO BRONCHOSCOPY, DIAGNOSTIC N/A 03/29/2021 ?? BRONCHOSCOPY, DIAGNOSTIC (WRVU 2.78) performed by Gilmer Foster MD at [facility] MAIN OR ??? PRO BRONCHOSCOPY, DIAGNOSTIC N/A 02/08/2022 ?? BRONCHOSCOPY, DIAGNOSTIC (WRVU 2.78) performed by Gilmer Foster MD at [facility] OR ??? PRO BRONCHOSCOPY, DIAGNOSTIC N/A 05/18/2022 ?? BRONCHOSCOPY, DIAGNOSTIC (WRVU 2.53) performed by Gilmer Foster MD at [facility] OR ??? PRO DECORTICATION, PULMONARY, TOTAL Left 05/18/2022 ?? @THORACOTOMY,DECORTICATION, PULMONARY, TOTAL (WRVU 26.65) performed by Gilmer Foster MDat [facility] OR ? ? PRO INJECTION ANES AGENT &/ STEROID INTERCOSTAL NERVE SINGLE LEVEL Left 03/29/2021 ?? NERVE BLOCK, INTERCOSTAL NERVE (WRVU 1.18) performed by Gilmer Foster MD at [facility] OR ??? PRO RECONSTRUCT INJURED CHEST Left 05/18/2022 ?? @MAJOR RECONSTRUCTION, CHEST WALL (WRVU 22.51) performed by Gilmer Foster MD at [facility] OR ??? PRO THORACOSCOPY SURG LOBECTOMY Left 03/29/2021 ?? @THORACOSCOPY,SURGICAL,W\LOBECTOMY,TOTAL OR SEGMENTAL (WRVU 24.64) performed by Gilmer Foster MD at [facility] OR ??? PRO THORACOSCOPY WITH BIOPSY OF PLEURA Left 02/08/2022 ?? THORACOSCOPY; WITH BIOPSY(IES) OF PLEURA (WRVU 4.58) performed by Gilmer Foster MD at [facility] OR ??? PRO THORACOSCOPY WITH MEDIASTINAL AND REGIONAL LYMPHADENECTOMY ?? 03/29/2021 ?? @THORACOSCOPY, SURG; W/MEDIASTINAL& REGIONAL LYMPHADENECTOMY (WRVU 4.12) performed by Gilmer Foster MD at [facility] OR ??? PRO THORACOSCOPY WITH WEDGE RESECTION AND ANATOMIC LUNG RESECTN Left 03/29/2021 ?? @THORACOSCOPY, SURG; W/DX WEDGE RESC W/ANATOMIC LUNG RESC (WRVU 3) performed by Gilmer Foster MD at [facility] OR ? Social History: Patient [...] more times Total Minutes, Occupational Therapy: 25 (or x2 ([phone]) Pager: [phone] GRAEME Velasco 05/24/2022 Occupational Therapy Rehabilitation Department [...] wean. We removed the epidural without complication. [facility] will sign off at this time. IOJ RN, have performed the documentation for this encounter in the presence of and acting as a scribe for Dr. Molina. [facility] Nurse: Oj Don RN Attending Physician:: Katie [...] cane for ~ 2 weeks. 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 Enjoys 4-wheeling, kayaking and [...] in reach and aware to call for administrative staff supervisor assistance with all mobility. Education: Pt educated [...] aware to callfor assistance with mobility, and administrative staff supervisor aware of his status. Expect d/c to [...] Code: functional mobility LUIS MIGUEL PEREZ, PT Pager:[phone] Physical Therapy Inpatient Rehabilitation Department * Messi [...] IR Thoracentesis Left 11/08/2021 Ramírez Ramirez MD [facility] INTERVENTIONL RAD ??? PRO BRONCHOSCOPY, DIAGNOSTIC N/A 03/29/2021 ?? BRONCHOSCOPY, DIAGNOSTIC (WRVU 2.78) performed by Gilmer Foster MD at [facility] MAIN OR ??? PRO BRONCHOSCOPY, DIAGNOSTIC N/A 02/08/2022 ?? BRONCHOSCOPY, DIAGNOSTIC (WRVU 2.78) performed by Gilmer Foster MD at [facility] MAIN OR ??? PRO BRONCHOSCOPY, DIAGNOSTIC N/A 05/18/2022 ?? BRONCHOSCOPY, DIAGNOSTIC (WRVU 2.53) performed by Gilmer Foster MD at [facility] MAIN OR ??? PRO DECORTICATION, PULMONARY, TOTAL Left 05/18/2022 ?? @THORACOTOMY,DECORTICATION, PULMONARY, TOTAL (WRVU 26.65) performed by Gilmer Foster MDat [facility] MAIN OR ? ? PRO INJECTION ANES AGENT &/ STEROID INTERCOSTAL NERVE SINGLE LEVEL Left 03/29/2021 ?? NERVE BLOCK, INTERCOSTAL NERVE (WRVU 1.18) performed by Gilmer Foster MD at [facility] MAIN OR ??? PRO RECONSTRUCT INJURED CHEST Left 05/18/2022 ?? @MAJOR RECONSTRUCTION, CHEST WALL (WRVU 22.51) performed by Gilmer Foster MD at [facility] OR ??? PRO THORACOSCOPY SURG LOBECTOMY Left 03/29/2021 ?? @THORACOSCOPY,SURGICAL,W\LOBECTOMY,TOTAL OR SEGMENTAL (WRVU 24.64) performed by Gilmer Foster MD at [facility] MAIN OR ??? PRO THORACOSCOPY WITH BIOPSY OF PLEURA Left 02/08/2022 ?? THORACOSCOPY; WITH BIOPSY(IES) OF PLEURA (WRVU 4.58) performed by Gilmer Foster MD at [facility] OR ??? PRO THORACOSCOPY WITH MEDIASTINAL AND REGIONAL LYMPHADENECTOMY ?? 03/29/2021 ?? @THORACOSCOPY, SURG; W/MEDIASTINAL& REGIONAL LYMPHADENECTOMY (WRVU 4.12) performed by Gilmer Foster MD at [facility] OR ??? PRO THORACOSCOPY WITH WEDGE RESECTION AND ANATOMIC LUNG RESECTN Left 03/29/2021 ?? @THORACOSCOPY, SURG; W/DX WEDGE RESC W/ANATOMIC LUNG RESC (WRVU 3) performed by Gilmer Foster MD at [facility] OR ? Social History: Patient [...] more times Total Minutes, Occupational Therapy: 34 ([facility] X2 ([phone])) Pager: [phone] Messi Dooley, TRAN 05/23/2022 Occupational Therapy Rehabilitation Department * Katie [...] acting as a scribe for Dr. Molina. [facility] Nurse: Oj Don RN Resident:: Jakob Dickerson DO Attending Physician:: Katie Molina MD I performed the above scribed service and agree with the accuracy of the note. KATIE MOLINA MD * Camilo Stevenson PA - 05/23/2022 9:19 AM EDT [facility] Department of Thoracic Surgery Inpatient Progress Note Patient Name: Rajan Marquez Patient : 1950 Patient Patient Location: [address] [place] [address] Attending Surgeon: GILMER FOSTER ID: Rajan Marquez [...] Surgical Unit Level 3 Wing D at [facility] Office Visit from 04/30/2022 in [place]acic [place] [facility] Weight 73.1 kilograms, or 161 pounds 2.5 [...] STEVE Black 05/23/2022 Thoracic Surgery Service Pager [phone] * Katie Molina MD - 05/22/2022 9:34 [...] RESECTION @MAJOR RECONSTRUCTION, CHEST WALL (WRVU 22.51) [facility] EPIDURAL ROUNDIN05/22/2022 9:34 AM Average Numeric Rating [...] Catheter Removed (Intact unless noted in Comments): Cici Tolentino continues to deny pain and has not [...] discussed with the surgical team and patient. OJ Palomino RN, have performed the documentation for this encounter in the presence of and acting as a scribe for Dr. Molina. [facility] Nurse: Oj Don RN Resident:: Jakob Dickerson DO Attending Physician:: Katie Molina MD I performed the above scribed service and agree with the accuracy of the note. KATIE MOLINA MD * Renu Donald PA - 05/22/2022 6:40 AM EDT Images from the original note were not included. [facility] Department of Thoracic Surgery Inpatient Progress Note Patient Name: Rajan Marquez Patient : 1950 [facility] [place] Attending Surgeon: GILMER FOSTER ID: Rajan Marquez [...] Surgical Unit Level 3 Wing D at [facility] Office Visit from 04/30/2022 in [facility]acic Surgery at [facility] Weight 77 kg (169 lb 11.2 oz) [...] peripheral edema. Incisions: LEFT posterolateral thoracotomy incision EMAIL MARKETING SPECIALIST with sterip strips intact. No surrounding erythema, [...] STEVE Patel 05/22/2022 Thoracic Surgery Service Pager [phone] * Devorah Rivera RN - 05/22/2022 4:40 [...] Thoracentesis Left 11/08/2021 Forauer, Ramírez Ziegler MD [facility] INTERVENTIONL RAD ??? PRO BRONCHOSCOPY, DIAGNOSTIC N/A 03/29/2021 BRONCHOSCOPY, DIAGNOSTIC (WRVU 2.78) performed by Gilmer Foster MD at [facility] OR ??? PRO BRONCHOSCOPY, DIAGNOSTIC N/A 02/08/2022 BRONCHOSCOPY, DIAGNOSTIC (WRVU 2.78) performed by Gilmer Foster MD at [facility] OR ??? PRO BRONCHOSCOPY, DIAGNOSTIC N/A 05/18/2022 BRONCHOSCOPY, DIAGNOSTIC (WRVU 2.53) performed by Gilmer Foster MD at [facility] OR ??? PRO DECORTICATION, PULMONARY, TOTAL Left 05/18/2022 @THORACOTOMY,DECORTICATION, PULMONARY, TOTAL (WRVU 26.65) performed by Gilmer Foster MD [facility] OR ? ? PRO INJECTION ANES AGENT &/ STEROID INTERCOSTAL NERVE SINGLE LEVEL Left 03/29/2021 NERVE BLOCK, INTERCOSTAL NERVE (WRVU 1.18) performed by Gilmer Foster MD at [facility] OR ??? PRO RECONSTRUCT INJURED CHEST Left 05/18/2022 @MAJOR RECONSTRUCTION, CHEST WALL (WRVU 22.51) performed by Gilmer Foster MD at [facility] OR ??? PRO THORACOSCOPY SURG LOBECTOMY Left 03/29/2021 @THORACOSCOPY,SURGICAL,W\LOBECTOMY,TOTAL OR SEGMENTAL (WRVU 24.64) performed by Johana Foster MD at [facility] OR ??? PRO THORACOSCOPY WITH BIOPSY OF PLEURA Left 02/08/2022 THORACOSCOPY; WITH BIOPSY(IES) OF PLEURA (WRVU 4.58) [facility] ??? PRO THORACOSCOPY WITH MEDIASTINAL AND REGIONAL LYMPHADENECTOMY 03/29/2021 @THORACOSCOPY, SURG; W/MEDIASTINAL& REGIONAL LYMPHADENECTOMY (WRVU 4.12) performed by Gilmer Foster MD at [facility] MAIN OR ??? PRO THORACOSCOPY WITH WEDGE RESECTION AND ANATOMIC LUNG RESECTN Left 03/29/2021 @THORACOSCOPY, SURG; W/DX WEDGE RESC W/ANATOMIC LUNG RESC (WRVU 3) performed by Johana Foster MD at [facility] MAIN OR Social History: Home set-up: Lives in a ranch style home with a basement and his partner. Bathroom Set-up: Walk in or tub shower on the main level, usually uses the tub shower. Stairs: ramp to enter. Baseline Mobility: hasn't been driving recently and has been using a cane for ~ 2 weeks. 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 Enjoys 4-wheeling, kayaking and yard work. Equipment [...] Balance, Discharge planning and to call for administrative staff supervisor assistance with all mobility and needs reinforcement. [...] Code: evaluation LUIS MIGUEL PEREZ, PT Pager: [phone] Physical Therapy Inpatient Rehabilitation Department * Sites, [...] scribe for Dr. Karri Ellis. Anesthesia Staff ([facility]) Patient seen and examined on daily rounds. I agree with the above assessment and plan. [facility] Nurse: Messi Vieira RN Resident:: Jakob Dickerson DO Attending Physician:: Karri Ellis MD * Renu Donald PA - 05/21/2022 8:11 AM EDT Images from the original note were not included. [facility] Department of Thoracic Surgery Inpatient Progress Note Patient Name: Rajan Marquez Patient : 1950 Patient Patient Location: [address] [place] [address] Attending Surgeon: GILMER FOSTER ID: Rajan Marquez [...] Surgical Unit Level 3 Wing D at [facility] Office Visit from 04/30/2022 in [place]acic Surgery [place] [facility] Weight 77.3 kg (170 lb 8 oz) [...] QTC Calculated (Bezet) 492 ms Calculated P [place] 106 degrees Calculated R [place] 71 degrees Calculated T [place] -169 degrees INTERPRETATION Sinus tachycardia Incomplete left [...] Result Value Ref Range Surgical Pathology Report [id number] Location: OR; OR11; A The signing pathologist has (i) examined the relevant preparation(s) for the specimen(s) and (ii) rendered or confirmed the diagnosis(es). . Frozen Section FROZEN SECTION DIAGNOSIS CFS - VISCERAL PLEURAL RIND. FROZEN, excision for frozen section Inflamed pleura, no evidence of malignancy (automotive leasing sales representative sample) 05/18/22 11:27 Electronically signed by: Malia Lacy MD Verified: 05/18/2022 11:29 Pathologist Performed at: -[facility] Dept. of Pathology, [place] [address] Water/Wastewater Engineer: Maria Ines Marrufo MD, FCAP, [place] Certificate: [id number] This intraoperative consultation should be interpreted as [...] MD Verified: 05/18/2022 11:25 Pathologist Performed at: -[facility] Dept. of Pathology, [place] [id number] Water/Wastewater Engineer: Maria Ines Marrufo MD, AP, [facility] Certificate: [id number] This intraoperative consultation should be interpreted as [...] Value Ref Range T&S only valid at [facility] Basic Metabolic Panel (non-fasting) Result Value [...] QTC Calculated (Bezet) 454 ms Calculated R [place] 82 degrees Calculated T [place] -102 degrees INTERPRETATION Sinus tachycardia with 1st degree A-V block Minimal voltage criteria for LVH, may be normal variant ( [place] product ) Nonspecific T wave abnormality Abnormal [...] Epidural w/ PCEA per APS recommendations. Tylenol, ROSE GRADER Bupropion Card: May consider increasing Metoprolol to 25mg BID, amiodarone (200mg daily) Pulm: IS/cough/deep breathe/OOB/ambulate. Continue left CT to -20 suction, monitor output. ROSE GRADER spiriva, albuterol FENGI: Stop IVF, Regular diet. RBOs Renal/: Matt in place - will keep until epidural out, monitor UOP Heme: SQH, holding home Xarelto ID: SHELLEY Endo: SHELLEY MSK: ROSE GRADER hydroxychloroquine for synovitis PPx: scds; SQH, Ambulate 4x a day. OOB. Other: Left arm in sling when OOB Dispo: full code, floor status All plans formulated in discussion with and directed by attending thoracic surgeon Dr. Foster. STEVE Peñaloza 05/21/2022 Thoracic Surgery Service Pager [phone] * Devorah Rivera RN - 05/21/2022 4:15 [...] indirect monitoring]: Marlys, Patient Safety Rounding * Karri Ellis MD [...] Davis MD - 05/20/2022 7:39 AM EDT [facility] Department of Thoracic Surgery Inpatient Progress Note Patient Name: Rajan Marquez Patient : 1950 Patient Patient Location: [address] [place] [address] Attending Surgeon: GILMER FOSTER ID: Rajan Marquez [...] Surgical Unit Level 3 Wing D at [facility] Office Visit from 04/30/2022 in Thoracic Surgery at [facility] Weight 75.4 kg (166 lb 3.2 oz) [...] QTC Calculated (Bezet) 492 ms Calculated P [place] 106 degrees Calculated R [place] 71 degrees Calculated T [place] -169 degrees INTERPRETATION Sinus tachycardia Incomplete left [...] Result Value Ref Range Surgical Pathology Report [id number] Location: OR; OR11; A The signing pathologist has (i) examined the relevant preparation(s) for the specimen(s) and (ii) rendered or confirmed the diagnosis(es). . Frozen Section FROZEN SECTION DIAGNOSIS CFS - VISCERAL PLEURAL RIND. FROZEN, excision for frozen section Inflamed pleura, no evidence of malignancy (automotive leasing sales representative sample) 05/18/22 11:27 Electronically signed by: Malia Lacy MD Verified: 05/18/2022 11:29 Pathologist Performed at: [facility] Dept. of Pathology, [place] [address] Water/Wastewater Engineer: Maria Ines Marrufo MD, FCAP, [place] Certificate: [id number] This intraoperative consultation should be interpreted as [...] MD Verified: 05/18/2022 11:25 Pathologist Performed at: [facility] Dept. of Pathology, [place] [id number] Water/Wastewater Engineer: Maria Ines Marrufo MD, AP, [place] Certificate: [id number] This intraoperative consultation should be interpreted as [...] Value Ref Range T&S only valid at [facility] Basic Metabolic Panel (non-fasting) Result Value [...] who have questions please contact the health progressive care nurse that requested your imaging first. Electronically signed by: Maryann Magallanes MD, [facility] ([phone]), at 05/18/2022 4:02 PM Assessment: Rajan Marquez [...] PT consulted. Plan: Neuro: Epidural w/ PCEA. ROSE GRADER bupropion Card: HDS, ROSE GRADER metoprolol, amiodarone (200mg daily) Pulm: IS/cough/deep breathe/OOB/ambulate. Continue left CT to -20 suction, monitor output. ROSE GRADER spiriva, albuterol FENGI: LR @100 ml/hr, Regular diet. RBOs Renal/: Matt in place, monitor UOP Heme: SQH ID: SHELLEY Endo: SHELLEY MSK: ROSE GRADER hydroxychloroquine for synovitis PPx: scds; SQH, Ambulate 4x a day. OOB. Dispo: full code, floor status Vaughn Davis MD 05/20/2022 Thoracic Surgery Service Pager [phone] * Caleb, Karri Sharp MD - 05/19/2022 9:31 AM EST Acute [...] Armas MD - 05/19/2022 8:15 AM EST [facility] Department of Thoracic Surgery Inpatient Progress Note Patient Name: Rajan Marquez Patient : 1950 [facility] [place] Attending Surgeon: GILMER FOSTER ID: Rajan Marquez [...] Surgical Unit Level 3 Wing D at [facility] Office Visit from 04/30/2022 in [facility]acic Surgery [place] [facility] Weight 71.5 kg (157 lb 11.2 oz) [...] QTC Calculated (Bezet) 492 ms Calculated P [place] 106 degrees Calculated R [place] 71 degrees Calculated T [place] -169 degrees INTERPRETATION Sinus tachycardia Incomplete left [...] Result Value Ref Range Surgical Pathology Report [id number] Location: OR; OR11; A The signing pathologist has (i) examined the relevant preparation(s) for the specimen(s) and (ii) rendered or confirmed the diagnosis(es). . Frozen Section FROZEN SECTION DIAGNOSIS CFS - VISCERAL PLEURAL RIND. FROZEN, excision for frozen section Inflamed pleura, no evidence of malignancy (automotive leasing sales representative sample) 05/18/22 11:27 Electronically signed by: Malia Lacy MD Verified: 05/18/2022 11:29 Pathologist Performed at: -[facility] Dept. of Pathology, [place] [address] Water/Wastewater Engineer: Maria Ines Marrufo MD, FCLESLY, CLIA Certificate: [id number] This intraoperative consultation should be interpreted as [...] MD Verified: 05/18/2022 11:25 Pathologist Performed at: -[facility] Dept. of Pathology, [place] [address] Water/Wastewater Engineer: Maria Ines Marrufo MD, FCAP, CLIA Certificate: [id number] This intraoperative consultation should be interpreted as [...] Value Ref Range T&S only valid at [facility] Basic Metabolic Panel (non-fasting) Result Value [...] who have questions please contact the health progressive care nurse that requested your imaging first. Assessment: Rajan [...] PT consulted. Plan: Neuro: Epidural w/ PCEA. ROSE GRADER bupropion Card: HDS, ROSE GRADER metoprolol, amiodarone (200mg daily) Pulm: IS/cough/deep breathe/OOB/ambulate. Continue left CT to -20 suction, monitor output. ROSE GRADER spiriva, albuterol FENGI: LR @100 ml/hr, Regular diet. RBOs Renal/: Matt in place, monitor UOP Heme: SQH ID: SHELLEY Endo: SHELLEY MSK: ROSE GRADER hydroxychloroquine for synovitis PPx: scds; SQH, Ambulate 4x a day. OOB. Dispo: full code, floor status Morales Armas MD 05/19/2022 Thoracic Surgery Service Pager [phone] * Morales Armas MD - 05/18/2022 3:27 PM EST [facility] Department of Thoracic Surgery Inpatient Post Op Check Patient Name: Rajan Marquez Patient : 1950 Patient Patient Location: [address] Attending Surgeon: GILMER FOSTER ID: Rajan [...] Admission (Current) from 05/18/2022 in PACU at [facility] OfficeVisit from 04/30/2022 in Thoracic Surgery at [facility] Weight 71.5 kg (157 lb 11.2 oz) [...] QTC Calculated (Bezet) 492 ms Calculated P [place] 106 degrees Calculated R [place] 71 degrees Calculated T [place] -169 degrees INTERPRETATION Sinus tachycardia Incomplete left bundle block Minimal voltage criteria for LVH, may be normal variant ( [place] product ) Nonspecific ST and T wave abnormality Abnormal ECG When compared with ECG of 21-FEB-2022 06:21, Sinus rhythm has replaced Atrial flutter Incomplete left bundle block is now Present Tissue culture Specimen: Lung Left pleural grumous Result Value Ref Range Gram Stain Few Neutrophils seen No microorganisms seen. Surgical Pathology Report Result Value Ref Range Surgical Pathology Report [id number] Location: OR; OR11; A The signing pathologist has (i) examined the relevant preparation(s) for the specimen(s) and (ii) rendered or confirmed the diagnosis(es). . Frozen Section FROZEN SECTION DIAGNOSIS CFS - VISCERAL PLEURAL RIND. FROZEN, excision for frozen section Inflamed pleura, no evidence of malignancy (automotive leasing sales representative sample) 05/18/22 11:27 Electronically signed by: Malia Lacy MD Verified: 05/18/2022 11:29 Pathologist Performed at: -[facility] Dept. of [place]ology, [place] [address] Water/Wastewater Engineer: Maria Ines Marrufo MD, FCAP, CLIA Certificate: [id number] This intraoperative consultation should be interpreted as [...] MD Verified: 05/18/2022 11:25 Pathologist Performed at: -[facility] Dept. of [place]ology, [place] [address] Water/Wastewater Engineer: Maria Ines Marrufo MD, FCAP, CLIA Certificate: [id number] This intraoperative consultation should be interpreted as [...] Value Ref Range T&S only valid at [facility] Hosp Basic Metabolic Panel (non-fasting) Result Value [...] who have questions please contact the health progressive care nurse that requested your imaging first. Electronically signed by: Maryann Magallanes MD, [facility] ([phone]), at 05/18/2022 4:02 PM Assessment: Rajan Marquez is a 71 y.o. male who is Day of Surgery s/p robotic, converted to open left thoracotomy and total decortication. He is currently in stable condition and recovering well postoperatively.Post op CXR and labs reviewed. Maintain posterior CT strict suction and use a sling when OOB for left arm Plan: Neuro: Epidural w/ PCEA. ROSE GRADER bupropion Card: HDS, ROSE GRADER metoprolol, amiodarone (200mg daily) Pulm: IS/cough/deep breathe/OOB/ambulate. Continue left CT to -20 suction, monitor output. ROSE GRADER spiriva, albuterol FENGI: LR @100 ml/hr, Regular diet. RBOs Renal/: Matt in place, monitor UOP Heme: SQH ID: SHELLEY Endo: SHELLEY MSK: ROSE GRADER hydroxychloroquine for synovitis PPx: scds; SQH, Ambulate 4x a day. OOB. Dispo: full code, floor status Vaughn Davis MD 05/18/2022 Thoracic Surgery Service Pager [phone] * Missy Abdi RN - 05/18/2022 2:31 [...] in later 1535 Called for CXR 1600 Peg removed Phase II met Feels better After [...] IR Thoracentesis Left 11/08/2021 Ramírez Ramirez MD [facility] INTERVENTIONL RAD ??? PRO BRONCHOSCOPY, DIAGNOSTIC N/A 03/29/2021 BRONCHOSCOPY, DIAGNOSTIC (WRVU 2.78) performed by Gilmer Foster MD at [facility] MAIN OR ??? PRO BRONCHOSCOPY, DIAGNOSTIC N/A 02/08/2022 BRONCHOSCOPY, DIAGNOSTIC (WRVU 2.78) performed by Gilmer Foster MD at [facility] MAIN OR ? ? PRO INJECTION ANES AGENT &/ STEROID INTERCOSTAL NERVE SINGLE LEVEL Left 03/29/2021 NERVE BLOCK, INTERCOSTAL NERVE (WRVU 1.18) performed by Gilmer Foster MD at [facility] MAIN OR ??? PRO THORACOSCOPY SURG LOBECTOMY Left 03/29/2021 @THORACOSCOPY,SURGICAL,W\LOBECTOMY,TOTAL OR SEGMENTAL (WRVU 24.64) performed by Johana Foster MD at [facility] OR ??? PRO THORACOSCOPY WITH BIOPSY OF PLEURA Left 02/08/2022 THORACOSCOPY; WITH BIOPSY(IES) OF PLEURA (WRVU 4.58) performed by Gilmer Foster MD at [facility] OR ??? PRO THORACOSCOPY WITH MEDIASTINAL AND REGIONAL LYMPHADENECTOMY 03/29/2021 @THORACOSCOPY, SURG; W/MEDIASTINAL& REGIONAL LYMPHADENECTOMY (WRVU 4.12) performed by Gilmer Foster MD at [facility] OR ??? PRO THORACOSCOPY WITH WEDGE RESECTION AND ANATOMIC LUNG RESECTN Left 03/29/2021 @THORACOSCOPY, SURG; W/DX WEDGE RESC W/ANATOMIC LUNG RESC (WRVU 3) performed by Johana Foster MD at [facility] OR MEDS: No current facility-administered medications [...] STEVE Sethi 05/18/2022 Thoracic Surgery Service Pager [phone] documented in this encounter Miscellaneous Notes * [...] none Patient is insured through: Primary Insurance: AAR MANAGED MEDICARE Payor: AAR MANAGED MEDICARE / Plan: [facility] COMPLETE / Product Type: *No Producttype* / Secondary Insurance: N/A Prescription Coverage: Yes This plan was formulated with input from patient and team. All are in agreement with plan. Kenia Sepulveda RN-BSN-CM Pager: [phone] * Plan of Care - Raquel Hoffmann [...] ADL's, purposeful rounding Surveillance [continuous indirect monitoring]: Clarao * Plan of Care - Maribell Farias [...] rounding Surveillance [continuous indirect monitoring]: Masimo * Initial Assessments - Kenia Sepulveda RN [...] surrogate would be surrogate decision maker per [place] decision making law. (Only good for 180 days) Any patient receiving care in [place] must abide by [place] law. The hierarchy for surrogate decision making [...] (i) The agent with financial power of burn out tender lace or a conservator appointed in accordance with [...] cane - straight Home Address confirmed as: [address] [facility] [address] Social & Family Supports: All names listed [...] Specific Information: none Health/Prescription Coverage: Primary Insurance: [employer] MANAGED MEDICARE Payor: [employer] MANAGED MEDICARE / Plan: [facility] MANAGED MEDICARE COMPLETE / Product Type: *No Producttype* / Secondary Insurance: N/A ; Prescription Coverage: Yes Preferred Pharmacy: [facility] [address] [address] [place] Status: Patient is a : No Primary Care Provider confirmed: Tami Olivia [phone] Patient/Caregiver Goals of Treatment: discharge home Potential Needs for Transition of Care: home health care Agency Referrals: I have met with the patient to: ?? discuss discharge planning needs. ?? provide the [facility], Office of Care Management letter from the Water/Wastewater Engineer pertaining to rehabreferrals. ?? provide a letter describing our affiliations within the [facility] and educate about their right to choose where referrals are sent. ?? provide a list of Home Health Agencies / Durable Medical Equipment vendors which serve their preferred geographic area. ?? provided patient with [facility] Star Quality Rating handout. They have requested referrals to: [facility]. [address] [place] [address] Note routed to a Maintenance Foreman who will communicate referrals to facilities and [...] of care planning. Kenia Sepulveda RN-BSN-CM Pager: [phone] * Initial Assessments - Messi Dooley, OT [...] IR Thoracentesis Left 11/08/2021 Ramírez Ramirez MD [facility] INTERVENTIONL RAD ??? PRO BRONCHOSCOPY, DIAGNOSTIC N/A 03/29/2021 BRONCHOSCOPY, DIAGNOSTIC (WRVU 2.78) performed by Gilmer Foster MD at [facility] MAIN OR ??? PRO BRONCHOSCOPY, DIAGNOSTIC N/A 02/08/2022 BRONCHOSCOPY, DIAGNOSTIC (WRVU 2.78) performed by Gilmer Foster MD at [facility] MAIN OR ??? PRO BRONCHOSCOPY, DIAGNOSTIC N/A 05/18/2022 BRONCHOSCOPY, DIAGNOSTIC (WRVU 2.53) performed by Gilmer Foster MD at [facility] MAIN OR ??? PRO DECORTICATION, PULMONARY, TOTAL Left 05/18/2022 @THORACOTOMY,DECORTICATION, PULMONARY, TOTAL (WRVU 26.65) performed by Gilmer Foster MD [facility] MAIN OR ? ? PRO INJECTION ANES AGENT &/ STEROID INTERCOSTAL NERVE SINGLE LEVEL Left 03/29/2021 NERVE BLOCK, INTERCOSTAL NERVE (WRVU 1.18) performed by Gilmer Foster MD at [facility] MAIN OR ??? PRO RECONSTRUCT INJURED CHEST Left 05/18/2022 @MAJOR RECONSTRUCTION, CHEST WALL (WRVU 22.51) performed by Gilmer Foster MD at [facility] MAIN OR ??? PRO THORACOSCOPY SURG LOBECTOMY Left 03/29/2021 @THORACOSCOPY,SURGICAL,W\LOBECTOMY,TOTAL OR SEGMENTAL (WRVU 24.64) performed by Johana Foster MD at [facility] MAIN OR ??? PRO THORACOSCOPY WITH BIOPSY OF PLEURA Left 02/08/2022 THORACOSCOPY; WITH BIOPSY(IES) OF PLEURA (WRVU 4.58) [facility] ??? PRO THORACOSCOPY WITH MEDIASTINAL AND REGIONAL LYMPHADENECTOMY 03/29/2021 @THORACOSCOPY, SURG; W/MEDIASTINAL& REGIONAL LYMPHADENECTOMY (WRVU 4.12) performed by Gilmer Foster MD at [facility] MAIN OR ??? PRO THORACOSCOPY WITH WEDGE RESECTION AND ANATOMIC LUNG RESECTN Left 03/29/2021 @THORACOSCOPY, SURG; W/DX WEDGE RESC W/ANATOMIC LUNG RESC (WRVU 3) performed by Johana Foster MD at [facility] OR Social History: Patient lives with significant [...] ?? WNL / WFL Communication: WFL B [facility] (pt reports hearing aids are no longer [...] planning. Total Minutes, Occupational Therapy: 40 (Eval ([id number])) 2017 OT Evaluation Code Rationale: ?? Diagnosis [...] and measurable assessment of functional outcome. Pager: [phone] Messi Dooley OT 05/21/2022 Occupational Therapy Rehabilitation Department * Plan of Care - Marbiell Farias RN - 05/20/2022 6:39 PM EDT [...] rounding Surveillance [continuous indirect monitoring]: Marlys * Care Management - Jose Manuel Salinas RN - 05/20/2022 3:37 PM EDT Weekend RN/CM attempted IA today. Pt with Epidural in for pain mgmt. Not feeling well to discuss dc planning. Pending PT/OT to see patient. Service RN/CM to f/u for IA on 05/21/2022. Jose Manuel Salinas RN RN/CM - Cellphone: [phone] Pager: [phone] Covering Service RN/CM * Plan of Care - Mamta Mccullough RN - 05/19/2022 4:19 PM EST OUTCOME EVALUATION NOTE: OUTCOME SUMMARY: VSS BPs soft (250ml Bolus given) on 2L NC-coughing w/ mild PETERSON; denies CP/N/V; pain well managed with epidural 1-2; dressings intact no VP PRODUCT MANAGEMENT known air leak; making adeq urine; tolerating [...] managed with epidural -04/20; dressings intact no VP PRODUCT MANAGEMENT known air leak; making adeq urine; tolerating [...] Foster MD - 05/18/2022 3:42 PM EST [facility] Operative Note Patient Name: Rajan Marquez : [id number] MR#: [id number] Case Date: 05/18/2022 Surgeon: Surgeon(s) and Role: * Gilmer Foster MD - Primary * Linda Mustafa PA - Physician Tung Nut Grower * Renu Donald PA - Physician Tung Nut Grower * Morales Armas MD - Resident Preoperative [...] 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 [facility] surgical timeout confirmed the patient's identity and [...] muscular attachments and divided with the sliding overhead distribution engineer and then excised in pieces with a [...] muscular attachments and divided with the sliding overhead distribution engineer. This maneuverpermitted a Finochietto rib gun synchronizer to be placed. The remainder of the [...] did appear to expand significantly. A 28 Barbadian chest tube was placed thr ough the camera port and advanced to the apex of the hemithorax and secured. We assessed the defectmade by resection of the fifth and sixth ribs. Because of the concern for scapular trapping, we elected to patch this defect. 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 [place] [address] Scheduled Procedures Name Priority Associated Diagnoses Date/Ti [...] 05/18/2022 10:17 AM EST Reconstruct Injured Chest (32072) 05/18/2022 9:19 AM EST Status post lobectomy of lung MODIFIER RIB RESECTION 05/18/2022 9:19 AM EST Status post lobectomy of lung Bronchoscopy, Diagnostic (71495) 05/18/2022 9:19 AM EST Status post lobectomy of lung Decortication, Pulmonary, Total (22098) 05/18/2022 9:19 AM EST Status post lobectomy [...] who have questions please contact the health progressive care nurse that requested your imaging first. ? Electronically signed by: Savanah Suazo MD, [facility] ([phone]), at 06/11/2022 4:12 PM Narrative 06/11/2022 4:12 [...] patients who have questions please contactthe health progressive care nurse that requested your imaging first. Gilmer Foster [...] who have questions please contact the health progressive care nurse that requested your imaging first. ? Electronically signed by: Marcus Edwards MD, [facility] ([phone]), at 05/24/2022 10:06 AM Narrative 05/24/2022 10:06 [...] patients who have questions please contactthe health progressive care nurse that requested your imaging first. Electronically signed by: Marcus Edwards MD, [facility]([phone]), at 05/24/2022 10:06 AM Gilmer Foster MD [...] who have questions please contact the health progressive care nurse that requested your imaging first. ? Electronically signed by: Marcus Edwards MD, [facility] ([phone]), at 05/24/2022 8:58 AM Narrative 05/24/2022 8:58 [...] patients who have questions please contactthe health progressive care nurse that requested your imaging first. Electronically signed by: Marcus Edwards MD, [facility]([phone]), at 05/24/2022 8:58 AM Gilmer Foster MD IMG DX ORDERABLE S * Differential, Automated (05/24/2022 3:36 AM EDT) Neutrophil % 69.4 % [facility] Neutrophil Absolute 4.63 1.70 - 6.10 x10(3)/[facility] Lymph % 17.4 % [facility] Lymphocytes Abs 1.2 0.9 - 3.2 x10(3)/[facility] Monocyte % 11.1 % [facility] Monocyte Abs 0.7 0.3 - 0.9 x10(3)/[facility] Eos % 1.3 % [facility] Eosinophils Abs 0.1 0.0 - 0.4 x10(3)/[facility] Basophil % 0.7 % [facility] Baso Absolute 0.0 0.0 - 0.1 x10(3)/[facility] Immature Gran % 0.10 % [facility] Comment: Immature granulocytes(IG's)percentage and absolute count will include metamyelocytes, myelocytes, and promyelocytes. Blood smears from CBCs yielding IG's will be scanned manually for concordance. If this scan disagrees with the automated IG or if promyelocytes are noted, a manual differential will be performed. Immature Gran Absolute 0.01 0.00 - 0.04 x10(3)/[facility] Blood 05/24/2022 3:36 AM EDT 05/24/2022 4:02 AM EDT Narrative Resulting Agency Comment Spec In Lab Morales Armas MD HEMATOLOGY ORDERABLE S [facility] [place] [address] * (ABNORMAL) Hemogram (05/24/2022 3:36 AM EDT) White Blood Cell 6.7 4.0 - 9.5 x10(3)/mc L [facility] Red Blood Cell 3.10(L) 4.58 - 5.54 x10(6)/mc L [facility] Hemoglobin 8.1(L) 13.7 - 16.5 g/dL [facility] Hematocrit 25.8(L) 40.5 - 48.5 % [facility] Mean Cell Volume 83.2 82.9 - 93.1 fL [facility] Mean Cell Hemoglobin 26.1(L) 27.5 - 32.1 pg [facility] Mean Cell Hemoglobin Concentration 31.4(L) 32.0 - 35.7 g/dL [facility] Platelet 262 145 - 357 x10(3)/mc L [facility] RDW Standard Deviation 54.4(H) 36.0 - 45.0 fL [facility] RDW coefficient of variation 18.2(H) 11.4 - 13.8 % [facility] Mean Platelet Volume 8.3 7.6 - 12.9 fL [facility] NRBC% auto 0.0 % [facility] NRBC Absolute 0.000 0.000 - 0.000 x10(3)/ L [facility] Blood 05/24/2022 3:36 AM EDT 05/24/2022 4:02 AM EDT Narrative Resulting Agency Comment Spec In Lab Morales Armas MD HEMATOLOGY ORDERABLE S [facility] [place] [address] * (ABNORMAL) Basic Metabolic Panel (non-fasting) (05/24/2022 3:36 AM EDT) Glucose 99 65 - 199 mg/dL [facility] Comment:Diabetes: >=200 mg/d L plus symptoms Blood Urea Nitrogen 18 10 - 20 mg/dL [facility] Creatinine 0.91 0.80 - 1.50 mg/dL [facility] Sodium 138 135 - 145 mmol/L [facility] Potassium 3.6 3.5 - 5.0 mmol/L [facility] Comment: Please note: ??Patients with WBC >100,000 may have falsely elevated Potassium levels. ??For accurate Potassium quantification in these patients send serum separator tube (gold top) for subsequent determinations. ??Contact the Clinical Chemistry Laboratory if there are any questions. Chloride 104 98 - 107 mmol/L [facility] Carbon Dioxide 25 22 - 31 mmol/L [facility] Anion Gap 9 5 - 15 mmol/L [facility] Calcium 8.3(L) 8.5 - 10.5 mg/dL [facility] Est Glomerular Filtration Rate 90 >=60 mL/min/1. 73 m?? [facility] [...] Narrative Resulting Agency Comment Spec In Lab iGlmer Foster MD CHEMISTRY ORDERA BLES [facility] [place] [address] * XR Chest PA & Lateral (Generic) [...] who have questions please contact the health progressive care nurse that requested your imaging first. ? Electronically signed by: Philip Church MD, [facility] ([phone]), at 05/23/2022 7:33 AM Narrative 05/23/2022 7:33 [...] patients who have questions please contactthe health progressive care nurse that requested your imaging first. Gilmer Foster MD IMG DX ORDERABLE S * Differential, Automated (05/23/2022 3:52 AM EDT) Neutrophil % 69.8 % [facility] Neutrophil Absolute 4.74 1.70 - 6.10 x10(3)/[facility] LABOR[facility] Lymph % 18.7 % [facility] Lymphocytes Abs 1.3 0.9 - 3.2 x10(3)/[facility] Monocyte % 10.2 % [facility] Monocyte Abs 0.7 0.3 - 0.9 x10(3)/[facility] Eos % 0.6 % [facility] Eosinophils Abs 0.0 0.0 - 0.4 x10(3)/[facility] Basophil % 0.4 % [facility] Baso Absolute 0.0 0.0 - 0.1 x10(3)/[facility] Immature Gran % 0.30 % [facility] Comment: Immature granulocytes(IG's)percentage and absolute count will include metamyelocytes, myelocytes, and promyelocytes. Blood smears from CBCs yielding IG's will be scanned manually for concordance. If this scan disagrees with the automated IG or if promyelocytes are noted, a manual differential will be performed. Immature Gran Absolute 0.02 0.00 - 0.04 x10(3)/[facility] Blood 05/23/2022 3:52 AM EDT 05/23/2022 4:08 AM EDT Narrative Resulting Agency Comment Spec In Lab Morales Armas MD HEMATOLOGY ORDERABLE S [facility] [place] [address] * (ABNORMAL) Hemogram (05/23/2022 3:52 AM EDT) White Blood Cell 6.8 4.0 - 9.5 x10(3)/mc L [facility] Red Blood Cell 3.13(L) 4.58 - 5.54 x10(6)/mc L [facility] Hemoglobin 8.2(L) 13.7 - 16.5 g/dL [facility] Hematocrit 26.5(L) 40.5 - 48.5 % [facility] Mean Cell Volume 84.7 82.9 - 93.1 fL [facility] Mean Cell Hemoglobin 26.2(L) 27.5 - 32.1 pg [facility] Mean Cell Hemoglobin Concentration 30.9(L) 32.0 - 35.7 g/dL [facility] Platelet 256 145 - 357 x10(3)/mc L [facility] RDW Standard Deviation 55.4(H) 36.0 - 45.0 fL [facility] RDW coefficient of variation 17.9(H) 11.4 - 13.8 % [facility] Mean Platelet Volume 8.3 7.6 - 12.9 fL [facility] NRBC% auto 0.0 % [facility] NRBC Absolute 0.000 0.000 - 0.000 x10(3)/ L [facility] Blood 05/23/2022 3:52 AM EDT 05/23/2022 4:08 AM EDT Narrative Resulting Agency Comment Spec In Lab Morales Armas MD HEMATOLOGY ORDERABLE S [facility] [place] [address] * Basic Metabolic Panel (non-fasting) (05/23/2022 3:52 AM EDT) Glucose 99 65 - 199 mg/dL [facility] Comment:Diabetes: >=200 mg/d L plus symptoms Blood Urea Nitrogen 14 10 - 20 mg/dL [facility] Creatinine 0.94 0.80 - 1.50 mg/dL [facility] Sodium 135 135 - 145 mmol/L [facility] Potassium 3.6 3.5 - 5.0 mmol/L [facility] Comment: Please note: ??Patients with WBC >100,000 may have falsely elevated Potassium levels. ??For accurate Potassium quantification in these patients send serum separator tube (gold top) for subsequent determinations. ??Contact the Clinical Chemistry Laboratory if there are any questions. Chloride 100 98 - 107 mmol/L [facility] Carbon Dioxide 27 22 - 31 mmol/L [facility] Anion Gap 8 5 - 15 mmol/L [facility] Calcium 8.6 8.5 - 10.5 mg/dL [facility] Est Glomerular Filtration Rate 86 >=60 mL/min/1. 73 m?? [facility] Lab Gilmer Foster MD CHEMISTRY ORDERA BLES [facility] [place] [address] * Differential, Automated (05/22/2022 3:47 AM EDT) Neutrophil % 72.4 % [facility] Neutrophil Absolute 5.30 1.70 - 6.10 x10(3)/mcL [facility] Lymph % 15.2 % [facility] Lymphocytes Abs 1.1 0.9 - 3.2 x10(3)/[facility] Monocyte % 11.1 % [facility] Monocyte Abs 0.8 0.3 - 0.9 x10(3)/[facility] Eos % 0.5 % [facility] Eosinophils Abs 0.0 0.0 - 0.4 x10(3)/[facility] Basophil % 0.4 % [facility] Baso Absolute 0.0 0.0 - 0.1 x10(3)/[facility] Immature Gran % 0.40 % [facility] Comment: Immature granulocytes(IG's)percentage and absolute count will include metamyelocytes, myelocytes, and promyelocytes. Blood smears from CBCs yielding IG's will be scanned manually for concordance. If this scan disagrees with the automated IG or if promyelocytes are noted, a manual differential will be performed. Immature Gran Absolute 0.03 0.00 - 0.04 x10(3)/[facility] Blood 05/22/2022 3:47 AM EDT 05/22/2022 4:15 AM EDT Narrative Resulting Agency Comment Spec In Lab Morales Armas MD HEMATOLOGY ORDERABLE S [facility] [place] [address] * (ABNORMAL) Hemogram (05/22/2022 3:47 AM EDT) White Blood Cell 7.3 4.0 - 9.5 x10(3)/mc L [facility] Red Blood Cell 2.93(L) 4.58 - 5.54 x10(6)/mc L [facility] Hemoglobin 7.6(L) 13.7 - 16.5 g/dL [facility] Hematocrit 24.3(L) 40.5 - 48.5 % [facility] Mean Cell Volume 82.9 82.9 - 93.1 fL [facility] Mean Cell Hemoglobin 25.9(L) 27.5 - 32.1 pg [facility] Mean Cell Hemoglobin Concentration 31.3(L) 32.0 - 35.7 g/dL [facility] Platelet 236 145 - 357 x10(3)/mc L [facility] RDW Standard Deviation 53.4(H) 36.0 - 45.0 fL [facility] RDW coefficient of variation 17.5(H) 11.4 - 13.8 % [facility] Mean Platelet Volume 8.6 7.6 - 12.9 fL [facility] NRBC% auto 0.0 % [facility] NRBC Absolute 0.000 0.000 - 0.000 x10(3)/mc L [facility] Blood 05/22/2022 3:47 AM EDT 05/22/2022 4:15 AM EDT Narrative Resulting Agency Comment Spec In Lab Morales Armas MD HEMATOLOGY ORDERABLE S [facility] [place] [address] * Basic Metabolic Panel (non-fasting) (05/22/2022 3:47 AM EDT) Glucose 101 65 - 199 mg/dL [facility] Comment:Diabetes: >=200 mg/d L plus symptoms Blood Urea Nitrogen 14 10 - 20 mg/dL [facility] Comment:result rechecked-bm Creatinine 0.90 0.80 - 1.50 mg/dL [facility] Sodium 137 135 - 145 mmol/L [facility] Potassium 3.8 3.5 - 5.0 mmol/L [facility] Comment: Please note: ??Patients with WBC >100,000 may have falsely elevated Potassium levels. ??For accurate Potassium quantification in these patients send serum separator tube (gold top) for subsequent determinations. ??Contact the Clinical Chemistry Laboratory if there are any questions. Chloride 102 98 - 107 mmol/L [facility] Carbon Dioxide 26 22 - 31 mmol/L [facility] Anion Gap 9 5 - 15 mmol/L [facility] Calcium 8.5 8.5 - 10.5 mg/dL [facility] Est Glomerular Filtration Rate 91 >=60 mL/min/1. 73 m?? [facility] Comment: This patient's estimated GFR [...] MD CHEMISTRY ORDERA BLES Performing Organization Address City/[facility]/ZIP Co de Phone Number [facility] [place] [address] * EKG 12 Lead (05/21/2022 7:36 AM EDT) Ventricular rate 118 BPM MUSE SYSTEM Atrial Rate 118 BPM MUSE SYSTEM P-R Interval 216 ms MUSE SYSTEM QRS Duration 106 ms MUSE SYSTEM Q-T Interval 324 ms MUSE SYSTEM QTC Calculated (Bezet) 454 ms MUSE SYSTEM Calculated R [place] 82 degrees MUSE SYSTEM Calculated T [place] -102 degrees MUSE SYSTEM INTERPRETATION Sinus tachycardia [...] Foster MD ECG ORDERABLES Performing Organization Address City/[facility]/ZIP Co de Phone Number MUSE SYSTEM * Differential, Automated (05/21/2022 4:09 AM EDT) Neutrophil % 72.4 % [facility] Neutrophil Absolute 4.83 1.70 - 6.10 x10(3)/[facility] Lymph % 14.5 % [facility] Lymphocytes Abs 1.0 0.9 - 3.2 x10(3)/[facility] Monocyte % 12.3 % [facility] Monocyte Abs 0.8 0.3 - 0.9 x10(3)/[facility] Eos % 0.1 % [facility] Eosinophils Abs 0.0 0.0 - 0.4 x10(3)/[facility] Basophil % 0.4 % [facility] Baso Absolute 0.0 0.0 - 0.1 x10(3)/[facility] Immature Gran % 0.30 % [facility] Comment: Immature granulocytes(IG's)percentage and absolute count will include metamyelocytes, myelocytes, and promyelocytes. Blood smears from CBCs yielding IG's will be scanned manually for concordance. If this scan disagrees with the automated IG or if promyelocytes are noted, a manual differential will be performed. Immature Gran Absolute 0.02 0.00 - 0.04 x10(3)/[facility] Blood 05/21/2022 4:09 AM EDT 05/21/2022 5:00 AM EDT Narrative Resulting Agency Comment Spec In Lab Morales Armas MD HEMATOLOGY ORDERABLE S [facility] [place] [address] * (ABNORMAL) Hemogram (05/21/2022 4:09 AM EDT) White Blood Cell 6.7 4.0 - 9.5 x10(3)/mc L [facility] Red Blood Cell 3.01(L) 4.58 - 5.54 x10(6)/mc L [facility] Hemoglobin 7.9(L) 13.7 - 16.5 g/dL [facility] Hematocrit 25.6(L) 40.5 - 48.5 % [facility] Mean Cell Volume 85.0 82.9 - 93.1 fL [facility] Mean Cell Hemoglobin 26.2(L) 27.5 - 32.1 pg [facility] Mean Cell Hemoglobin Concentration 30.9(L) 32.0 - 35.7 g/dL [facility] Platelet 226 145 - 357 x10(3)/mc L [facility] RDW Standard Deviation 53.6(H) 36.0 - 45.0 fL [facility] RDW coefficient of variation 17.3(H) 11.4 - 13.8 % [facility] Mean Platelet Volume 9.1 7.6 - 12.9 fL [facility] NRBC% auto 0.0 % [facility] NRBC Absolute 0.000 0.000 - 0.000 x10(3)/mc L [facility] Blood 05/21/2022 4:09 AM EDT 05/21/2022 5:00 AM EDT Narrative Resulting Agency Comment Spec In Lab Morales Armas MD HEMATOLOGY ORDERABLE S Performing Organization Address City/State/[facility] Co de Phone Number [facility] [place] [address] * (ABNORMAL) Basic Metabolic Panel (non-fasting) (05/21/2022 4:09 AM EDT) Glucose 84 65 - 199 mg/dL [facility] Comment:Diabetes: >=200 mg/d L plus symptoms Blood Urea Nitrogen 7(L) 10 - 20 mg/dL [facility] Creatinine 0.71(L) 0.80 - 1.50 mg/dL [facility] Sodium 137 135 - 145 mmol/L [facility] Potassium 3.5 3.5 - 5.0 mmol/L [facility] Comment: Please note: ??Patients with WBC >100,000 may have falsely elevated Potassium levels. ??For accurate Potassium quantification in these patients send serum separator tube (gold top) for subsequent determinations. ??Contact the Clinical Chemistry Laboratory if there are any questions. Chloride 103 98 - 107 mmol/L [facility] Carbon Dioxide 27 22 - 31 mmol/L [facility] Anion Gap 7 5 - 15 mmol/L [facility] Calcium 8.7 8.5 - 10.5 mg/dL [facility] Est Glomerular Filtration Rate 97 >=60 mL/min/1. 73 m?? [facility] [...] Lab Gilmer Foster MD CHEMISTRY ORDERA BLES [facility] [place] [address] * Differential, Automated (05/20/2022 4:08 AM EDT) Neutrophil % 74.7 % [facility] Neutrophil Absolute 5.59 1.70 - 6.10 x10(3)/[facility] Lymph % 12.6 % [facility] Lymphocytes Abs 0.9 0.9 - 3.2 x10(3)/[facility] Monocyte % 11.9 % [facility] Monocyte Abs 0.9 0.3 - 0.9 x10(3)/[facility] Eos % 0.0 % [facility] Eosinophils Abs 0.0 0.0 - 0.4 x10(3)/[facility] Basophil % 0.3 % [facility] Baso Absolute 0.0 0.0 - 0.1 x10(3)/[facility] Immature Gran % 0.50 % [facility] Comment: Immature granulocytes(IG's)percentage and absolute count will include metamyelocytes, myelocytes, and promyelocytes. Blood smears from CBCs yielding IG's will be scanned manually for concordance. If this scan disagrees with the automated IG or if promyelocytes are noted, a manual differential will be performed. Immature Gran Absolute 0.04 0.00 - 0.04 x10(3)/mcL [facility] Blood 05/20/2022 4:08 AM EDT 05/20/2022 4:48 AM EDT Narrative Resulting Agency Comment Spec In Lab Morales Armas MD HEMATOLOGY ORDERABLE S [facility] [place] [address] * (ABNORMAL) Hemogram (05/20/2022 4:08 AM EDT) White Blood Cell 7.5 4.0 - 9.5 x10(3)/mc L [facility] Red Blood Cell 3.07(L) 4.58 - 5.54 x10(6)/mc L [facility] Hemoglobin 8.0(L) 13.7 - 16.5 g/dL [facility] Hematocrit 25.9(L) 40.5 - 48.5 % [facility] Mean Cell Volume 84.4 82.9 - 93.1 fL [facility] Mean Cell Hemoglobin 26.1(L) 27.5 - 32.1 pg [facility] Mean Cell Hemoglobin Concentration 30.9(L) 32.0 - 35.7 g/dL [facility] Platelet 207 145 - 357 x10(3)/mc L [facility] RDW Standard Deviation 53.7(H) 36.0 - 45.0 fL [facility] RDW coefficient of variation 17.4(H) 11.4 - 13.8 % [facility] Mean Platelet Volume 8.7 7.6 - 12.9 fL [facility] NRBC% auto 0.0 % [facility] NRBC Absolute 0.000 0.000 - 0.000 x10(3)/mc L [facility] Blood 05/20/2022 4:08 AM EDT 05/20/2022 4:48 AM EDT Narrative Resulting Agency Comment Spec In Lab Morales Armas MD HEMATOLOGY ORDERABLE S [facility] [place] [address] * (ABNORMAL) Basic Metabolic Panel (non-fasting) (05/20/2022 4:08 AM EDT) Glucose 99 65 - 199 mg/dL [facility] Comment:Diabetes: >=200 mg/d L plus symptoms Blood Urea Nitrogen 11 10 - 20 mg/dL [facility] Creatinine 0.79(L) 0.80 - 1.50 mg/dL [facility] Sodium 133(L) 135 - 145 mmol/L [facility] Potassium 3.8 3.5 - 5.0 mmol/L [facility] Comment: Please note: ??Patients with WBC >100,000 may have falsely elevated Potassium levels. ??For accurate Potassium quantification in these patients send serum separator tube (gold top) for subsequent determinations. ??Contact the Clinical Chemistry Laboratory if there are any questions. Chloride 102 98 - 107 mmol/L [facility] Carbon Dioxide 23 22 - 31 mmol/L [facility] Anion Gap 8 5 - 15 mmol/L [facility] Calcium 8.3(L) 8.5 - 10.5 mg/dL [facility] Est Glomerular Filtration Rate 94 >=60 mL/min/1. 73 m?? [facility] [...] Lab Gilmer Foster MD CHEMISTRY ORDERA BLES [facility] [place] [address] * XR Chest PA & Lateral (Generic) [...] who have questions please contact the health progressive care nurse that requested your imaging first. ? Electronically signed by: Savanah Suazo MD, [facility] ([phone]), at 05/19/2022 11:16 AM Narrative 05/19/2022 11:16 [...] patients who have questions please contactthe health progressive care nurse that requested your imaging first. Gilmer Foster MD IMG DX ORDERABLE S * (ABNORMAL) Differential, Automated (05/19/2022 3:31 AM EST) Neutrophil % 80.9 % [facility] Neutrophil Absolute 8.95(H) 1.70 - 6.10 x10(3)/mc L [facility] Lymph % 9.3 % [facility] Lymphocytes Abs 1.0 0.9 - 3.2 x10(3)/ L [facility] Monocyte % 9.2 % [facility] Monocyte Abs 1.0(H) 0.3 - 0.9 x10(3)/mc L [facility] Eos % 0.0 % [facility] Eosinophils Abs 0.0 0.0 - 0.4 x10(3)/mc L [facility] Basophil % 0.1 % [facility] Baso Absolute 0.0 0.0 - 0.1 x10(3)/mc L [facility] Immature Gran % 0.50 % [facility] Comment: Immature granulocytes(IG's)percentage and absolute count will include metamyelocytes, myelocytes, and promyelocytes. Blood smears from CBCs yielding IG's will be scanned manually for concordance. If this scan disagrees with the automated IG or if promyelocytes are noted, a manual differential will be performed. Immature Gran Absolute 0.05(H) 0.00 - 0.04 x10(3)/mc L [facility] Blood 05/19/2022 3:31 AM EST 05/19/2022 3:56 AM EST Narrative Resulting Agency Comment Spec In Lab Morales Armas MD HEMATOLOGY ORDERABLE S [facility] [place] [address] * (ABNORMAL) Hemogram (05/19/2022 3:31 AM EST) White Blood Cell 11.1(H) 4.0 - 9.5 x10(3)/mc L [facility] Red Blood Cell 3.23(L) 4.58 - 5.54 x10(6)/mc L [facility] Hemoglobin 8.5(L) 13.7 - 16.5 g/dL [facility] Hematocrit 26.8(L) 40.5 - 48.5 % [facility] Mean Cell Volume 83.0 82.9 - 93.1 fL [facility] Mean Cell Hemoglobin 26.3(L) 27.5 - 32.1 pg [facility] Mean Cell Hemoglobin Concentration 31.7(L) 32.0 - 35.7 g/dL [facility] Platelet 245 145 - 357 x10(3)/mc L [facility] RDW Standard Deviation 52.6(H) 36.0 - 45.0 fL [facility] RDW coefficient of variation 17.3(H) 11.4 - 13.8 % [facility] Mean Platelet Volume 8.4 7.6 - 12.9 fL [facility] NRBC% auto 0.0 % [facility] NRBC Absolute 0.000 0.000 - 0.000 x10(3)/ L [facility] Blood 05/19/2022 3:31 AM EST 05/19/2022 3:56 AM EST Narrative Resulting Agency Comment Spec In Lab Morales Armas MD HEMATOLOGY ORDERABLE S [facility] [place] [address] * Basic Metabolic Panel (non-fasting) (05/19/2022 3:31 AM EST) Glucose 111 65 - 199 mg/dL [facility] Comment:Diabetes: >=200 mg/d L plus symptoms Blood Urea Nitrogen 13 10 - 20 mg/dL [facility] Creatinine 0.93 0.80 - 1.50 mg/dL [facility] [...] questions. Chloride 102 98 - 107 mmol/L [facility] Carbon Dioxide 24 22 - 31 mmol/L [facility] Anion Gap 9 5 - 15 mmol/L [facility] Calcium 8.5 8.5 - 10.5 mg/dL [facility] Est Glomerular Filtration Rate 87 >=60 mL/min/1. 73 m?? [facility] [...] In Lab Gilmer Foster MD CHEMISTRY ORDERA [facility] [place] [address] * XR Chest One [facility] (05/18/2022 4:01 [...] who have questions please contact the health progressive care nurse that requested your imaging first. ? Electronically signed by: Maryann Magallanes MD, [facility] ([phone]), at 05/18/2022 4:02 PM Narrative 05/18/2022 4:02 [...] patients who have questions please contactthe health progressive care nurse that requested your imaging first. Electronically signed by: Maryann Magallanes MD, [facility]([phone]), at 05/18/2022 4:02 PM Gilmer Foster MD IMG DX ORDERABLE S * (ABNORMAL) Differential, Automated (05/18/2022 2:18 PM EST) Pathologist [facility] Neutrophil % 85.2 % [facility] Neutrophil Absolute 9.74(H) 1.70 - 6.10 x10(3)/mc L [facility] Lymph % 7.3 % [facility] Lymphocytes Abs 0.8(L) 0.9 - 3.2 x10(3)/mc L [facility] Monocyte % 6.8 % [facility] Monocyte Abs 0.8 0.3 - 0.9 x10(3)/mc L [facility] Eos % 0.2 % [facility] Eosinophils Abs 0.0 0.0 - 0.4 x10(3)/mc L [facility] Basophil % 0.2 % [facility] Baso Absolute 0.0 0.0 - 0.1 x10(3)/mc L [facility] Immature Gran % 0.30 % [facility] Comment: Immature granulocytes(IG's)percentage and absolute count will include metamyelocytes, myelocytes, and promyelocytes. Blood smears from CBCs yielding IG's will be scanned manually for concordance. If this scan disagrees with the automated IG or if promyelocytes are noted, a manual differential will be performed. Immature Gran Absolute 0.04 0.00 - 0.04 x10(3)/mc L [facility] Blood 05/18/2022 2:18 PM EST 05/18/2022 2:30 PM EST Narrative Resulting Agency Comment Spec In Lab Morales Armas MD HEMATOLOGY ORDERABLE S [facility] [place] [address] * (ABNORMAL) Hemogram (05/18/2022 2:18 PM EST) White Blood Cell 11.4(H) 4.0 - 9.5 x10(3)/mc L [facility] Red Blood Cell 3.19(L) 4.58 - 5.54 x10(6)/mc L [facility] Hemoglobin 8.4(L) 13.7 - 16.5 g/dL [facility] Hematocrit 26.5(L) 40.5 - 48.5 % [facility] Mean Cell Volume 83.1 82.9 - 93.1 fL [facility] Mean Cell Hemoglobin 26.3(L) 27.5 - 32.1 pg [facility] Mean Cell Hemoglobin Concentration 31.7(L) 32.0 - 35.7 g/dL [facility] Platelet 289 145 - 357 x10(3)/mc L [facility] RDW Standard Deviation 52.3(H) 36.0 - 45.0 fL [facility] RDW coefficient of variation 17.2(H) 11.4 - 13.8 % [facility] Mean Platelet Volume 8.4 7.6 - 12.9 fL [facility] NRBC% auto 0.0 % [facility] NRBC Absolute 0.000 0.000 - 0.000 x10(3)/mc L [facility] Blood 05/18/2022 2:18 PM EST 05/18/2022 2:30 PM EST Narrative Resulting Agency Comment Spec In Lab Morales Armas MD HEMATOLOGY ORDERABLE S [facility] [place] [address] * (ABNORMAL) Basic Metabolic Panel (non-fasting) (05/18/2022 2:18 PM EST) Glucose 117 65 - 199 mg/dL [facility] Comment:Diabetes: >=200 mg/d L plus symptoms Blood Urea Nitrogen 15 10 - 20 mg/dL [facility] Creatinine 0.96 0.80 - 1.50 mg/dL [facility] Sodium 138 135 - 145 mmol/L [facility] Potassium 4.4 3.5 - 5.0 mmol/L [facility] Comment: Please note: ??Patients with WBC >100,000 may have falsely elevated Potassium levels. ??For accurate Potassium quantification in these patients send serum separator tube (gold top) for subsequent determinations. ??Contact the Clinical Chemistry Laboratory if there are any questions. Chloride 106 98 - 107 mmol/L [facility] Carbon Dioxide 22 22 - 31 mmol/L [facility] Anion Gap 10 5 - 15 mmol/L [facility] Calcium 8.3(L) 8.5 - 10.5 mg/dL [facility] Est Glomerular Filtration Rate 84 >=60 mL/min/1. 73 m?? [facility] [...] MD CHEMISTRY ORDERA BLES Performing Organization Address City/[facility]/ZIP Co de Phone Number [facility] [place] [address] * Type and Screen Validity (05/18/2022 1:37 PM EST) T&S only valid at [facility] Comment:This Type and Screen result is only valid at the [facility] Blood 05/18/2022 1:37 PM EST 05/18/2022 1:48 PM EST Narrative Resulting Agency Comment Spec In Lab Gilmer Foster MD BLOOD BANK LAB O RDERABLES Performing Organization Address City/[facility]/ZIP Co de Phone Number [facility] [place] [address] * ABOR[facility] Recheck Status (05/18/2022 1:37 PM EST) [facility] Recheck Order Order Placed [facility] ABORH Type Recheck Complete [facility] Blood 05/18/2022 1:37 PM EST 05/18/2022 1:48 PM EST Narrative Resulting Agency Comment Spec In Lab Gilmer Foster MD BLOOD BANK LAB O RDERABLES Performing Organization Address City/[facility]/ZIP Co de Phone Number [facility] [place] [address] * Antibody screen (05/18/2022 1:37 PM EST) Ab Screen Interp Negative [facility] Expires at [id number] on: 05/21/2022 [facility] Blood 05/18/2022 1:37 PM EST 05/18/2022 1:48 PM EST Narrative Resulting Agency Comment Spec In Lab Gilmer Foster MD BLOOD BANK LAB O RDERABLES Performing Organization Address City/[facility]/ZIP Co de Phone Number [facility] [place] [address] * ABO/Rh Typing (05/18/2022 1:37 PM EST) ABORH Type A Pos [facility] Blood 05/18/2022 1:37 PM EST 05/18/2022 1:48 PM EST Narrative Resulting Agency Comment Spec In Lab Gilmer Foster MD BLOOD BANK LAB O RDERABLES Performing Organization Address [place] [facility] Co de Phone Number [facility] [place] [address] * (ABNORMAL) BLOOD GAS 2 ARTERIAL (05/18/2022 12:41 PM EST) pH, Arterial 7.34(L) 7.35 - 7.45 [facility] PCO2, Arterial 42 35 - 45 mmHg [facility] PO2, Arterial 290(H) 85 - 104 mmHg [facility] Bicarbonate, Arterial 22.2 20.0 - 26.0 mmol/L [facility] Base Excess, Arterial -3.5(L) -3.0 - 3.0 mmol/L [facility] Hgb Blood Gas 9.2(L) 13.7 - 16.5 g/dL [facility] Oxyhemoglobin, Arterial 98.5(H) 94.0 - 97.0 % [facility] Carboxyhemoglob in, Arterial 1.2 % [facility] Comment: Nonsmokers: 0.5-1.5% COHB Smokers: Variable, but usually less than 10% Toxic: 20-30% COHB Lethal: Greater than 60% COHB Methemoglobin, Arterial 0.3 <=1.5 % [facility] Na Whole Blood 133(L) 135 - 145 mmol/L [facility] K Whole Blood 4.2 3.5 - 5.0 mmol/L [facility] Comment: Please note: Patients with WBC >100,000 may have falsely elevated Potassium levels. Contact the Clinical Chemistry Laboratory if there are any questions. ICa Whole Blood 1.16 1.15 - 1.33 mmol/L [facility] Comment: Note: ??Total bilirubin higher than 20 mg/dL may lead to falsely low ionized calcium. CL Whole Blood 104 98 - 107 mmol/L [facility] Gluc Whole Bld 130 65 - 199 mg/dL [facility] Comment:Diabetes: >=200 mg/d L plus symptoms. Lactate WB 1.0 0.5 - 2.2 mmol/L [facility] FIO2 Art 50 % [facility] Flow Art 1.0 LPM [facility] PF Ratio Art 580 [facility] Blood 05/18/2022 12:4 1 PM EST 05/18/2022 12:41 PM EST Gilmer Foster MD POINT OF CARE TE ORDERABLES [facility] [place] [address] * Specimen to Pathology (05/18/2022 11:21 AM EST) AP Specimen 05/18/2022 11:2 1 AM EST 05/18/2022 11:21 AM EST Narrative [facility] - 05/18/2022 11:21 AM EST Specimen requisition ordered. ??Separate Pathology report to follow Gilmer Foster MD PATHOLOGY/CYTOLO GY ORDERABLES [facility] [place] [address] * Specimen to Pathology (05/18/2022 10:56 AM EST) AP Specimen 05/18/2022 10:5 6 AM EST 05/18/2022 10:56 AM EST Narrative [facility] - 05/18/2022 10:56 AM EST Specimen requisition ordered. ??Separate Pathology report to follow Gilmer Foster MD PATHOLOGY/CYTOLO GY ORDERABLES [facility] [place] [address] * Specimen to Pathology (05/18/2022 10:37 AM EST) AP Specimen 05/18/2022 10:3 7 AM EST 05/18/2022 10:37 AM EST Narrative [facility] - 05/18/2022 10:37 AM EST Specimen requisition ordered. ??Separate Pathology report to follow Gilmer Foster MD PATHOLOGY/CYTOLO GY ORDERABLES Performing Organization Address City/[facility]/ZIP Co de Phone Number [facility] [place] [address] * Specimen to Pathology (05/18/2022 10:36 AM EST) AP Specimen 05/18/2022 10:3 6 AM EST 05/18/2022 10:36 AM EST Narrative [facility] - 05/18/2022 10:36 AM EST Specimen requisition ordered. ??Separate Pathology report to follow Gilmer Foster MD PATHOLOGY/CYTOLO GY ORDERABLES Performing Organization Address City/[facility]/ZIP Co de Phone Number [facility] [place] [address] * Specimen to Pathology (05/18/2022 10:36 AM EST) AP Specimen 05/18/2022 10:3 6 AM EST 05/18/2022 10:36 AM EST Narrative [facility] - 05/18/2022 10:36 AM EST Specimen requisition ordered. ??Separate Pathology report to follow Gilmer Foster MD PATHOLOGY/CYTOLO GY ORDERABLES Performing Organization Address [facility] Co de Phone Number [facility] [place] [address] * Anaerobic Culture (05/18/2022 10:35 AM EST) Anaerobic Culture No anaerobic organisms isolated [facility] Lung 05/18/2022 10:3 5 AM EST 05/18/2022 2:17 PM EST Comment:Left pleural grumous Narrative Resulting Agency Comment Spec In Lab Gilmer Foster MD MICROBIOLOGY - G ENERAL ORDERABLES Performing Organization Address [facility] [place] [address] * Tissue culture (05/18/2022 10:35 AM EST) Tissue Culture No growth [facility] Gram Stain Few Neutrophils seen No microorganisms seen. [facility] Lung 05/18/2022 10:3 5 AM EST 05/18/2022 2:17 PM EST Comment:Left pleural grumous Narrative Resulting Agency Comment Spec In Lab Gilmer Foster MD MICROBIOLOGY - G ENERAL ORDERABLES Performing Organization Address [facility] de Phone Number [facility] [place] [address] * Surgical Pathology Report (05/18/2022 10:19 AM EST) Final Diagnosis [id number] ? Location: L3WD; 0326; B The signing [...] Soriano Verified: ??06/04/2022 14:52 ??Pathologist Performed at: ??-[facility] [place], [place] [address] Water/Wastewater Engineer: Maria Ines Marrufo MD, FCAP, ??CLIA Certificate: [id number] SPECIMEN(S) SUBMITTED A - Left pleural rind, [...] tissue is submitted for frozen section: A1. Cell Technician sections in 3 cassettes as follows: ?A1: ??Frozen section remnant ?A2-A3: ??Cell Technician sections B - Labeled/Fixative: Left pleural grumous, fresh. Quantity/Size: Fragments, 7.0 x 5.0 x 1.0 cm in aggregate. Tissue Description: Multiple soft rubbery fragments of white tissue. Sections/Processin g: Cell Technician sections in 2 cassettes labeled B1-B2. C - Labeled/Fixative: Visceral pleural rind. Frozen, fresh for frozen section. Quantity/Size: Single, 2.7 x 1.9 x 0.2 cm. Tissue Description: Serrato-white membranous soft tissue. Sections/Processin g: The following tissue is submitted for frozen section: C1. Cell Technician sections in 2 cassettes as follows: ?C1: ??Frozen section remnant ?C2: ??Cell Technician sections D - Labeled/Fixative: Fragments of rib, fresh. Quantity/Size: Fragments, 9.0 x 9.0 x 2.0 cm in aggregate. Tissue Description: Multiple fragments of rib and surrounding connective tissue. Sections/Processin g: Blocks submitted for decalcification: D1. Cell Technician sections in 1 cassette labeled D1. E - Labeled/Fixative: Left parietal pleural rind, fresh. Quantity/Size: Fragments, 12.5 x 12.5 x 2.0 cm in aggregate. Tissue Description: Multiple fragments of firm rubbery serrato-white tissue with surrounding adipose tissue. Sections/Processin g: Cell Technician sections in 2 cassettes labeled E1-E2. F - Labeled/Fixative: Left visceral pleural rind, fresh. Quantity/Size: Fragments, 9.0 x 5.0 x 2.0 cm in aggregate. Tissue Description: Fragments of firm rubbery serrato-white tissue. Sections/Processin g: Cell Technician sections in 2 cassettes labeled F1-F2. ??jnk ?Frozen Section FROZEN SECTION DIAGNOSIS CFS - VISCERAL PLEURAL RIND. 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, [place] [address] Water/Wastewater Engineer: Maria Ines Marrufo MD, FCAP, ??CLIA Certificate: [id number] This intraoperative consultation should be interpreted as [...] MD Verified: ??05/18/2022 11:25 ??Pathologist Performed at: ??-[facility] [place], [place] [address] Water/Wastewater Engineer: Maria Ines Marrufo MD, FCAP, ??CLIA Certificate: [id number] This intraoperative consultation should be interpreted as [...] EST Gilmer Foster MD PATHOLOGY/CYTOLO GY ORDERABLES [facility] [place] [id number] [place] [address] * Specimen to Pathology (05/18/2022 10:19 AM EST) AP Specimen 05/18/2022 10:1 9 AM EST 05/18/2022 10:19 AM EST Narrative [facility] - 05/18/2022 10:19 AM EST Specimen requisition ordered. ??Separate Pathology report to follow Gilmer Foster MD PATHOLOGY/CYTOLO GY ORDERABLES [facility] [place] [address] * (ABNORMAL) BLOOD GAS 2 ARTERIAL (05/18/2022 10:17 AM EST) pH, Arterial 7.36 7.35 - 7.45 [facility] PCO2, Arterial 42 35 - 45 mmHg [facility] PO2, Arterial 226(H) 85 - 104 mmHg [facility] Bicarbonate, Arterial 22.9 20.0 - 26.0 mmol/L [facility] Base Excess, Arterial -2.6 -3.0 - 3.0 mmol/L [facility] Hgb Blood Gas 9.5(L) 13.7 - 16.5 g/dL [facility] Oxyhemoglobin, Arterial 98.5(H) 94.0 - 97.0 % [facility] Carboxyhemoglob in, Arterial 1.0 % [facility] Comment: Nonsmokers: 0.5-1.5% COHB Smokers: Variable, but usually less than 10% Toxic: 20-30% COHB Lethal: Greater than 60% COHB Methemoglobin, Arterial 0.3 <=1.5 % [facility] Na Whole Blood 133(L) 135 - 145 mmol/L [facility] K Whole Blood 3.8 3.5 - 5.0 mmol/L [facility] Comment: Please note: Patients with WBC >100,000 may have falsely elevated Potassium levels. Contact the Clinical Chemistry Laboratory if there are any questions. ICa Whole Blood 1.18 1.15 - 1.33 mmol/L [facility] Comment: Note: ??Total bilirubin higher than 20 mg/dL may lead to falsely low ionized calcium. CL Whole Blood 104 98 - 107 mmol/L [facility] Gluc Whole Bld 107 65 - 199 mg/dL [facility] Comment:Diabetes: >=200 mg/d L plus symptoms. Lactate WB 1.5 0.5 - 2.2 mmol/L [facility] Blood 05/18/2022 10:1 7 AM EST 05/18/2022 10:17 AM EST Gilmer Foster MD POINT OF CARE TE ST ORDERABLES Performing Organization Address [facility] de Phone Number [facility] [place] [address] * XR Fluoro No Rad <1Hr - [...] (Bezet) 492 ms MUSE SYSTEM Calculated P [place] 106 degrees MUSE SYSTEM Calculated R [place] 71 degrees MUSE SYSTEM Calculated T [place] -169 degrees MUSE SYSTEM INTERPRETATION Atrial flutter Non-specific intra-ventricular conduction delay Minimal voltage criteria for LVH, may be normal variant ( [place] product ) Nonspecific ST and T wave abnormality Abnormal ECG When compared with ECG of 21-FEB-2022 06:21, No significant change was found I personally reviewed the tracing and edited the fellows interpretation Confirmed by fellow Rudi Guzmán ([id number]) on 05/21/2022 4:25:34 AM Confirmed by MD RUST SALVATORE ([id number]) on 05/21/2022 10:56:00 AM MUSE SYSTEM 05/18/2022 8:00 AM EST 05/21/2022 10:56 AM EDT Gilmer Foster MD ECG ORDERABLES MUSE SYSTEM * POCT Glucose (05/18/2022 7:29 AM EST) Glucose, POC 93 65 - 199 mg/dL [facility] Comment: Supplemental ranges: <140 mg/dL before meals <180 mg/dL all other times of the day Blood 05/18/2022 7:29 AM EST 05/18/2022 7:29 AM EST Gilmer Foster MD POINT OF CARE TE ST ORDERABLES [facility] [place] [address] documented in this encounter Visit Diagnoses Diagnosis [...] subcutaneous injection 5,000 Units 5,000 Units, Subcutaneous, DOG HANDLER OR TRAINER TO O.R., 1 dose, On Sat05/18/22 at [...] Maribell Farias RN)2142 (Given - Provider: Sandro Newton, CHRISTINA) 0557 (Given - Provider: Sandro Newton, CHRISTINA)1309 (Given - Provider: Maribell Farias RN)1706 (Given - Provider: Maribell Farias RN) 0031 (Given - Provider: Raquel Hoffmann)0545 (Given - Provider: Raquel Hoffmann)1201 (Given - Provider: Cori Motta, CHRISTINA) AMIOdarone (Paceron) tablet 200 mg 200 mg, [...] Maribell Farias RN)2142 (Given - Provider: Sandro Newton, CHRISTINA) 1014 (Given - Provider: Maribell Farias RN)1705 [...] Routine 1403 (Given - Provider: Maribell Farias RN)214 (Given - Provider: Sandro Newton RN) heparin [...] RN) 1014 (Given - Provider: Maribell Farias RN)213 (Given - Provider: Raquel Hoffmann) 0901 (Given [...] RN) 101 (Given - Provider: Maribell Farias RN)213 (Given - Provider: Raquel Hoffmann) 0908 (Given - Provider: Cori Motta RN) tamsulosin (Flomax) capsule 0.4 mg 0.4 mg, Oral, DAILY, First dose on Sat05/19/22 at 0900, Until Discontinued, DO NOT CRUSH OR OPEN, Routine 0938 (Given - Provider: Maribell Farias RN) 101 (Given - Provider: Maribell Farias RN) 0902 (Given - Provider: Cori Motta RN) tiotropium bromide (Spiriva Respimat) 2.5 mcg/actuation inhaler 2 puff 2 puff, Inhalation, DAILY, First dose on Sat05/18/22 at 2000, Until Discontinued, Must be primed prior to first administration, Routine 0938 (Given - Provider: Maribell Farias RN) 1014 (Given - Provider: Maribell Farias RN) 0907 (Given - Provider: Cori oMtta RN) Continuous Medication Order 05/22/2022 05/23/2022 05/24/2022 [...] a programmed frequency , Recovery (Recovery-Hospital Unit) 212 (New Bag - Provider: Sandro Newton RN) [...] Unit) documented in this encounter Care Teams Workday Senior Associate Relationship Specialty Start Date End Date Tami Olivia [address] [place] [address] PCP - General Family Medicine 12/30/20 documented as of this encounter
--- OUTSIDE RECORDS SUMMARY | 2023-12-26 15:58 | XMS_ITS | Encounter Summary ---
Author Organization [facility] [place] [address] Care Team Providers Care Environmental Attorney Name Role Phone Tami Olivia Primary Care Provider [phone] Reason for Visit * Auth/Cert (Routine) Specialty Diagnoses / Procedures Referred By Bert t Referred To Contact Diagnoses Atrial flutter atrial flutter Procedures PRO CARDIOVERSION ELECTIVE ARRHYTHMIA EXTERNAL CARDIOVERSION-ELECTIVE (WRVU 2) Sekou Canales MD [facility] [place] [address] [facility] Referral ID Status Reason Start Date Expiration Date Visits Re quested Visits Authorized [id number] 1 1 Encounter Details Date Type Department Care Team (Late st Contact Info) Description 11/08/2022 12:37 PM EDT Anesthesia Event [place] [address] Mary Wagoner MD [facility] [place] [address] Shashank Chung MD [facility] [place] [address] Anesthesia Record Procedure Summary Procedure Name Responsible [...] transverse; 12/15/23; 1710 05/18/22 1000 by Sanket Murphy, CHRISTINA 12/15/23 1710 by Ewa Palencia, CHRISTINA Chest Tube 05/18/22; 1318; Left ; 28Fr straight; 12/15/23; 1710 05/18/22 1318 by Sanket Murphy, CHRISTINA 12/15/23 1710 by Ewa Palencia, CHRISTINA (RETIRED) Peripheral IV Line - Single Lumen 11/08/22; 1221; median vein (underside of arm), left; [id number] catheter system; Anatomical Landmarks; 20 gauge, 1 [...] Procedure Summary Date: 11/08/22 Room / Location: [facility] MINOR SURGERY 2 / [facility] MAIN OR Anesthesia Start: 1237 Anesthesia Stop: 1257 Procedure: CARDIOVERSION-ELECTIVE (WRVU 2) Diagnosis: (atrial flutter) Surgeons: Sekou Canales MD Responsible Provider: Mary Wagoner MD Anesthesia Type: MAC ASA Status: 3 All Anesthesia Providers: Anesthesiologist: Mary Wagoner MD MACHINE CASTINGS PLASTERER: Yosef Cantu CRNA Vitals Value Taken Time BP 98/58 11/08/22 1300 Temp 36.3 ??C (97.3 ??F) 11/08/22 1256 Pulse 56 11/08/22 1328 Resp 14 11/08/22 1328 SpO2 100 % 11/08/22 1328 Pain Level Vitals shown include unvalidated device data. Patient Location: PACU/[facility] Level of Consciousness: Conscious but Sleepy Pain [...] Thoracentesis Left 11/08/2021 Forauer, Ramírez Ziegler MD [facility] INTERVENTIONL RAD ??? PRO BRONCHOSCOPY, DIAGNOSTIC N/A 03/29/2021 BRONCHOSCOPY, DIAGNOSTIC (WRVU 2.78) performed by Gilmer Gutiérrez MD at [facility] OR ??? PRO BRONCHOSCOPY, DIAGNOSTIC N/A 02/08/2022 BRONCHOSCOPY, DIAGNOSTIC (WRVU 2.78) performed by Gilmer Gutiérrez MD at [facility] OR ??? PRO BRONCHOSCOPY, DIAGNOSTIC N/A 05/18/2022 BRONCHOSCOPY, DIAGNOSTIC (WRVU 2.53) performed by Gilmer Gutiérrez MD at [facility] OR ??? PRO DECORTICATION, PULMONARY, TOTAL Left 05/18/2022 @THORACOTOMY,DECORTICATION, PULMONARY, TOTAL (WRVU 26.65) performed by Gilmer Gutiérrez MD [facility] OR ? ? PRO INJECTION ANES AGENT &/ STEROID INTERCOSTAL NERVE SINGLE LEVEL Left 03/29/2021 NERVE BLOCK, INTERCOSTAL NERVE (WRVU 1.18) performed by Gilmer Gutiérrez MD at [facility] OR ??? PRO RECONSTRUCT INJURED CHEST Left 05/18/2022 @MAJOR RECONSTRUCTION, CHEST WALL (WRVU 22.51) performed by Gilmer Gutiérrez MD at [facility] OR ??? PRO THORACOSCOPY SURG LOBECTOMY Left 03/29/2021 @THORACOSCOPY,SURGICAL,W\LOBECTOMY,TOTAL OR SEGMENTAL (WRVU 24.64) performed by Johana Gutiérrez MD at [facility] OR ??? PRO THORACOSCOPY WITH BIOPSY OF PLEURA Left 02/08/2022 THORACOSCOPY; WITH BIOPSY(IES) OF PLEURA (WRVU 4.58) [facility] ??? PRO THORACOSCOPY WITH MEDIASTINAL AND REGIONAL LYMPHADENECTOMY 03/29/2021 @THORACOSCOPY, SURG; W/MEDIASTINAL& REGIONAL LYMPHADENECTOMY (WRVU 4.12) performed by Gilmer Gutiérrez MD at [facility] MAIN OR ??? PRO THORACOSCOPY WITH WEDGE RESECTION AND ANATOMIC LUNG RESECTN Left 03/29/2021 @THORACOSCOPY, SURG; W/DX WEDGE RESC W/ANATOMIC LUNG RESC (WRVU 3) performed by Johana Gutiérrez MD at [facility] MAIN OR Social History Tobacco Use ??? [...] risks discussed with patient. Plan discussed with MACHINE CASTINGS PLASTERER and attending. Anesthesia Screening documented in this encounter Plan of Treatment Upcoming Encounters Date Type Department Care Team (Late st Contact Info) Description 01/20/2024 10:40 AM EST Office Visit Cardiology at [address] [address] Chrissy Zepeda APRN [facility] [place] [address] Scheduled Procedures Name Priority Associated Diagnoses Date/Ti [...] mg documented in this encounter Care Teams Environmental Attorney Relationship Specialty Start Date End Date Tami Olivia [address] [place] [address] PCP - General Family Medicine 12/30/20 documented as of this encounter
--- OUTSIDE RECORDS SUMMARY | 2023-12-26 15:58 | XMS_ITS | Encounter Summary ---
Author Organization [facility] [place] [address] Care Team Providers Care Allergist Immunologist Name Role Phone Tami Olivia Primary Care Provider [phone] Encounter Details Date Type Department Care Team [...] 10:40 AM EST Office Visit Cardiology at [address] [address] Chrissy Zepeda APRN [facility] [place] [address] Scheduled Procedures Name Priority Associated Diagnoses Date/Ti me CARDIOVERSION-ELECTIVE (WRVU 2) atrial flutter ELECTROPHYSIOLOGY PROCEDURE Persistent atrial fibrillation CARDIOVERSION-ELECTIVE (WRVU 2) persistent atrial fibrillation TRANSESOPHAGEAL ECHOCARDIOGR AM (WRVU 2.3) persistent atrial fibrillation documented as of this encounter Visit Diagnoses Not on filedocumented in this encounter Care Teams Allergist Immunologist Relationship Specialty Start Date End Date Tami Olivia [address] [place] [address] PCP - General Family Medicine 12/30/20 documented as of this encounter
--- OUTSIDE RECORDS SUMMARY | 2023-12-26 15:58 | XMS_ITS | Encounter Summary ---
Author Organization [facility] Address [facility] [place] [address] Care Team Providers Care Clinique Counter Manager Name Role Phone Tami Olivia Primary Care Provider [phone] Encounter Details Date Type Department Care Team (Late st Contact Info) Description 06/08/2022 Telephone [place] [phone] Megan Reza RN Social History Tobacco Use [...] AM EST Office Visit Cardiology at [address] [phone] Chrissy Zepeda, [facility] [place] [address] Scheduled Procedures Name Priority Associated Diagnoses Date/Ti me CARDIOVERSION-ELECTIVE (WRVU 2) atrial flutter ELECTROPHYSIOLOGY PROCEDURE Persistent atrial fibrillation CARDIOVERSION-ELECTIVE (WRVU 2) persistent atrial fibrillation TRANSESOPHAGEAL ECHOCARDIOGR AM (WRVU 2.3) persistent atrial fibrillation documented as of this encounter Visit Diagnoses Not on filedocumented in this encounter Care Teams Clinique Counter Manager Relationship Specialty Start Date End Date Tami Olivia [address] [place] [address] PCP - General Family Medicine 12/30/20 documented as of this encounter
--- OUTSIDE RECORDS SUMMARY | 2023-12-26 15:58 | XMS_ITS | Encounter Summary ---
Author Organization [facility] [place] [address] Care Team Providers Care Yard Inspector Name Role Phone Tami Olivia Primary Care Provider [phone] Encounter Details Date Type Department Care Team (Late st Contact Info) Description 08/17/2022 Telephone Pulmonology at [facility] [place] [phone] Annabella Gustafson RT Social History Tobacco Use [...] 08/17/2022 10:13 AM EDT I called Rajan Lopezyo and informed him we received a referral for Pulmonary Rehabilitation at [facility]. I inquired about his familiarity with [...] 10:40 AM EST Office Visit Cardiology at [address] [phone] Chrissy Zepeda, M[facility] [place] [address] Scheduled Procedures Name Priority Associated Diagnoses Date/Ti me CARDIOVERSION-ELECTIVE (WRVU 2) atrial flutter ELECTROPHYSIOLOGY PROCEDURE Persistent atrial fibrillation CARDIOVERSION-ELECTIVE (WRVU 2) persistent atrial fibrillation TRANSESOPHAGEAL ECHOCARDIOGR AM (WRVU 2.3) persistent atrial fibrillation documented as of this encounter Visit Diagnoses Not on filedocumented in this encounter Care Teams Yard Inspector Relationship Specialty Start Date End Date Tami Olivia [address] [place] [address] PCP - General Family Medicine 12/30/20 documented as of this encounter
--- OUTSIDE RECORDS SUMMARY | 2023-12-26 15:58 | XMS_ITS | Encounter Summary ---
[facility] Organization [facility] Address [facility] [place] [address] Care Team Providers Care Boiler Out Name Role Phone Tami Olivia Primary Care Provider [phone] [phone] Encounter Details Date Type Department Care Team (Late st Contact Info) Description 10/10/2022 Orders Only Cardiology at [address] [phone] Sekou Canales MD [facility] [place] [address] Typical atrial flutter Social History Tobacco Use [...] 10:40 AM EST Office Visit Cardiology at [address] [phone] Chrissy Zepeda APRN [facility] [place] [address] Scheduled Procedures Name Priority Associated Diagnoses Date/Ti me CARDIOVERSION-ELECTIVE (WRVU 2) atrial flutter ELECTROPHYSIOLOGY PROCEDURE Persistent atrial fibrillation CARDIOVERSION-ELECTIVE (WRVU 2) persistent atrial fibrillation TRANSESOPHAGEAL ECHOCARDIOGR AM (WRVU 2.3) persistent atrial fibrillation documented as of this encounter Visit Diagnoses Diagnosis Typical atrial flutter Atrial flutter documented in this encounter Care Teams Boiler Out Relationship Specialty Start Date End Date Tami Olivia [address] [place] [address] PCP - General Family Medicine 12/30/20 documented as of this encounter
--- OUTSIDE RECORDS SUMMARY | 2023-12-26 15:58 | XMS_ITS | Encounter Summary ---
Author Organization [facility] Address [facility] [place] [address] Care Team Providers Care Bolt Maker Name Role Phone Tami Olivia Primary Care Provider [phone] Reason for Visit * Auth/Cert (Routine) Specialty Diagnoses / Procedures Referred By Bert t Referred To Contact Diagnoses Atrial flutter atrial flutter Procedures PRO CARDIOVERSION ELECTIVE ARRHYTHMIA EXTERNAL CARDIOVERSION-ELECTIVE (WRVU 2) Sekou Canales MD [facility] [place] [address] [facility] Referral ID Status Reason Start Date Expiration Date Visits Re quested Visits Authorized [id number] 1 1 Encounter Details Date Type Department Care Team (Late st Contact Info) Description 11/08/2022 11:00 AM EDT Office Visit Cardiology at [address] [place] [address] Elizabet Otero PA [facility] [place] [address] Encounter for monitoring amiodarone therapy; Longstanding persistent atrial fibrillation Social History Tobacco Use Types Packs/Day Years Used Date Smoking Tobacco: Former Cigarettes Smokeless Tobacco: Never Tobacco Cessation:Counseling Given: Not Answered Comments:1 ppd for the past year Alcohol Use Standard Drinks/Week Comments Not Currently 0 (1 standard drink = 0.6 oz pur e alcohol) [facility] Inpatient Questions Answer Date Recorded Does [...] Mr. Marquez met with Dr. Canales in [facility] on 10/10/2022 for evaluation and management of atrial fibrillation and atrial flutter, noting that these are associated with CHF sx and reduced LVEF. Therefore, amiodarone was restarted and plans were made to pursue DCCV. Live independently in [place], [place]. Enjoys riding [employer]. Patient Active Problem List Diagnosis Fibrothorax Atrial [...] 4. Follow up with Dr. Canales in [facility] I appreciate the opportunity to be involved with Mr. Marquez's care. Please do not hesitate to contactEP with any further questions (pager [phone]). STEVE Manley Pager: [phone] documented in this encounter Plan of Treatment Upcoming Encounters Date Type Department Care Team ([facility] Contact Info) Description 01/20/2024 10:40 AM EST Office Visit Cardiology at [address] [phone] Chrissy Zepeda, SILO ERECTOR [facility] [place] [address] Scheduled Procedures Name Priority Associated Diagnoses Date/Ti [...] (Bezet) 486 ms MUSE SYSTEM Calculated R [place] 101 degrees MUSE SYSTEM Calculated T [place] 60 degrees MUSE SYSTEM INTERPRETATION Atrial flutter with variable A-V block Rightward axis Minimal voltage criteria for LVH, may be normal variant ( [place]ta product ) Prolonged QT Abnormal ECG When compared with ECG of 21-MAY-2022 07:36, Atrial flutter has replaced Sinus rhythm Inverted T waves have replaced nonspecific T wave abnormality in Inferior leads Confirmed by MD Bob, Sloan ([id number]) on 11/10/2022 3:58:39 PM MUSE SYSTEM 11/08/2022 11:1 9 AM EDT 11/10/2022 3:58 PM EDT Sekou Canales MD ECG ORDERABLES MUSE SYSTEM * [facility]SH [place] (11/08/2022 9:17 AM EDT) Thyroid Stimulating Hormone 3.91 0.27 - 4.20 mcIU/mL [facility] Comment: Reference Interval (mcIU/mL): Females: ??First Trimester: 0.23-3.88 ??Second Trimester: 0.22-3.90 ??Third Trimester: 0.44-4.66 Blood 11/08/2022 9:17 AM EDT 11/08/2022 9:24 AM EDT Narrative Resulting Agency Comment Spec In Lab Sekou Canales MD CHEMISTRY ORDERABLES Performing Organization Address City/[facility] Co de Phone Number [facility] [place] [address] * Magnesium (11/08/2022 9:17 AM EDT) Magnesium 0.90 0.69 - 1.07 mmol/L [facility] Blood 11/08/2022 9:17 AM EDT 11/08/2022 9:24 AM EDT Narrative Resulting Agency Comment Spec In Lab Sekou Canales MD CHEMISTRY ORDERABLES Performing Organization Address [facility] de Phone Number [facility] [place] [address] * (ABNORMAL) Comprehensive metabolic panel (non-fasting) (11/08/2022 9:17 AM EDT) Glucose 81 65 - 199 mg/dL [facility] Comment:Diabetes: >=200 mg/d L plus symptoms Blood Urea Nitrogen 25(H) 10 - 20 mg/dL [facility] Creatinine 1.58(H) 0.80 - 1.50 mg/dL [facility] Sodium 138 135 - 145 mmol/L [facility] Potassium 4.5 3.5 - 5.0 mmol/L [facility] Comment: Please note: ??Patients with WBC >100,000 may have falsely elevated Potassium levels. ??For accurate Potassium quantification in these patients send serum separator tube (gold top) for subsequent determinations. ??Contact the Clinical Chemistry Laboratory if there are any questions. Chloride 101 98 - 107 mmol/L [facility] Carbon Dioxide 25 22 - 31 mmol/L [facility] Anion Gap 12 5 - 15 mmol/L [facility] Calcium 9.6 8.5 - 10.5 mg/dL [facility] Protein, Total 7.5 6.1 - 8.0 g/dL [facility] Albumin 4.2 3.2 - 5.2 g/dL [facility] Aspartate Aminotransferase 33 0 - 39 unit/L [facility] Alanine Aminotransferase 32 0 - 55 unit/L [facility] Alkaline Phosphatase 104 40 - 130 unit/L [facility] Bilirubin, Total 0.6 0.2 - 1.3 mg/dL [facility] Est Glomerular Filtration Rate 46(L) >=60 mL/min/1. 73 m?? [facility] Comment: This patient's estimated GFR was [...] In Lab Sekou Canales MD CHEMISTRY ORDERABLES [facility] [place] [phone] documented in this encounter Visit Diagnoses Diagnosis Encounter for monitoring amiodarone therapy Encounter for therapeutic drug monitoring Longstanding persistent atrial fibrillation documented in this encounter Care Teams Bolt Maker Relationship Specialty Start Date End Date Tami Olivia [address] [place] [address] PCP - General Family Medicine 12/30/20 documented as of this encounter
--- OUTSIDE RECORDS SUMMARY | 2023-12-26 15:58 | XMS_ITS | Encounter Summary ---
Author Organization [facility] [place] [address] Care Team Providers Care Furnace Caretaker Name Role Phone Tami Olivia Primary Care Provider [phone] Reason for Visit * Auth/Cert (Routine) Specialty Diagnoses / Procedures Referred By Bert t Referred To Contact Diagnoses Atrial flutter atrial flutter Procedures PRO CARDIOVERSION ELECTIVE ARRHYTHMIA EXTERNAL CARDIOVERSION-ELECTIVE (WRVU 2) Sekou Canales MD [facility] [place] [address] [facility] Referral ID Status Reason Start Date Expiration Date Visits Re quested Visits Authorized [id number] 1 1 Encounter Details Date Type Department Care Team (Latest Contact Info) Description 11/08/2022 9:15 AM EDT Laboratory Appointment Lab [address] [place] [address] Encounter for monitoring amiodarone therapy; Longstanding persistent [...] 10:40 AM EST Office Visit Cardiology at [address] [place] [address] Chrissy Zepeda APRN [facility] [place] [address] Scheduled Procedures Name Priority Associated Diagnoses Date/Ti [...] EDT) Glucose 81 65 - 199 mg/dL [facility] Comment:Diabetes: >=200 mg/d L plus symptoms Blood Urea Nitrogen 25(H) 10 - 20 mg/dL [facility] Creatinine 1.58(H) 0.80 - 1.50 mg/dL [facility] Sodium 138 135 - 145 mmol/L [facility] Potassium 4.5 3.5 - 5.0 mmol/L [facility] Comment: Please note: ??Patients with WBC >100,000 may have falsely elevated Potassium levels. ??For accurate Potassium quantification in these patients send serum separator tube (gold top) for subsequent determinations. ??Contact the Clinical Chemistry Laboratory if there are any questions. Chloride 101 98 - 107 mmol/L [facility] Carbon Dioxide 25 22 - 31 mmol/L [facility] Anion Gap 12 5 - 15 mmol/L [facility] Calcium 9.6 8.5 - 10.5 mg/dL [facility] Protein, Total 7.5 6.1 - 8.0 g/dL [facility] Albumin 4.2 3.2 - 5.2 g/dL [facility] Aspartate Aminotransferase 33 0 - 39 unit/L [facility] Alanine Aminotransferase 32 0 - 55 unit/L [facility] Alkaline Phosphatase 104 40 - 130 unit/L [facility] Bilirubin, Total 0.6 0.2 - 1.3 mg/dL [facility] Est Glomerular Filtration Rate 46(L) >=60 mL/min/1. 73 m?? [facility] Comment: This patient's estimated GFR [...] In Lab Sekou Canales MD CHEMISTRY ORDERABLES [facility] [address] * Magnesium (11/08/2022 9:17 AM EDT) Magnesium 0.90 0.69 - 1.07 mmol/L [facility] Blood 11/08/2022 9:17 AM EDT 11/08/2022 9:24 AM EDT Narrative Resulting Agency Comment Spec In Lab Sekou Canales MD CHEMISTRY ORDERABLES [facility] [address] * TSH [place] (11/08/2022 9:17 AM EDT) Thyroid Stimulating Hormone 3.91 0.27 - 4.20 mcIU/mL [facility] Comment: Reference Interval (mcIU/mL): Females: ??First Trimester: 0.23-3.88 ??Second Trimester: 0.22-3.90 ??Third Trimester: 0.44-4.66 Blood 11/08/2022 9:17 AM EDT 11/08/2022 9:24 AM EDT Narrative Resulting Agency Comment Spec In Lab Sekou Canales MD CHEMISTRY ORDERABLES [facility] [place] [address] documented in this encounter Visit Diagnoses Diagnosis Encounter for monitoring amiodarone therapy Encounter for therapeutic drug monitoring Longstanding persistent atrial fibrillation documented in this encounter Care Teams Furnace Caretaker Relationship Specialty Start Date End Date Tami Olivia [address] [place] [address] PCP - General Family Medicine 12/30/20 documented as of this encounter
--- OUTSIDE RECORDS SUMMARY | 2023-12-26 15:58 | XMS_ITS | Encounter Summary ---
Author Organization [facility] [place] [address] Care Team Providers Care Diagnostic Medical Sonographer Name Role Phone Tami Olivia Primary Care Provider [phone] Reason for Visit * Reason Onset Date Comments Pre Procedure Call 11/06/2022 Encounter Details Date Type Department Care Team (Late st Contact Info) Description 11/06/2022 Telephone Cardiology at [address] [phone] Jacqueline Henry RN Pre Procedure Call Social [...] to procedure. NPO after midnight. Understands that sales route driver helper is needed to transport them upon discharge. documented in this encounter Plan of Treatment Upcoming Encounters Date Type Department Care Team (Late st Contact Info) Description 01/20/2024 10:40 AM EST Office Visit Cardiology at [address] [phone] Chrissy Zepeda APRN [facility] [place] [address] Scheduled Procedures Name Priority Associated Diagnoses Date/Ti me CARDIOVERSION-ELECTIVE (WRVU 2) atrial flutter ELECTROPHYSIOLOGY PROCEDURE Persistent atrial fibrillation CARDIOVERSION-ELECTIVE (WRVU 2) persistent atrial fibrillation TRANSESOPHAGEAL ECHOCARDIOGR AM (WRVU 2.3) persistent atrial fibrillation documented as of this encounter Visit Diagnoses Not on filedocumented in this encounter Care Teams Diagnostic Medical Sonographer Relationship Specialty Start Date End Date Tami Olivia [address] [place] [address] PCP - General Family Medicine 12/30/20 documented as of this encounter
--- OUTSIDE RECORDS SUMMARY | 2023-12-26 15:58 | XMS_ITS | Encounter Summary ---
Author Organization [facility] Address [facility] [place] [address] Care Team Providers Care Sales And Service Technician Name Role Phone Tami Olivia Primary Care Provider [phone] Reason for Visit * Auth/Cert (Routine) Specialty Diagnoses / Procedures Referred By Bert t Referred To Contact Diagnoses Atrial flutter atrial flutter Procedures PRO CARDIOVERSION ELECTIVE ARRHYTHMIA EXTERNAL CARDIOVERSION-ELECTIVE (WRVU 2) Sekou Canales MD [facility] [place] [place] [address] [facility] Referral ID Status Reason Start Date Expiration Date Visits Re quested Visits Authorized [id number] 1 1 Encounter Details Date Type Department Care Team (Latest Contact Info) Description 11/08/2022 11:41 AM EDT - 11/08/2022 2:06 PM EDT Hospital Encounter [place] [address] Sekou Canales MD [facility] [place] [address] Typical atrial flutter; Atrial fibrillation, unspecified type [...] the adhesive pads were placed, call the learn to swim instructor sewer contractor at . We will schedule a follow-up appointment with the learn to swim instructor here, or you will be scheduled to [...] 12/16/2023 Spiriva Respimat 2.5 mcg/actuation Mist 01/26/2022 4 acetaminophen (Tylenol) 500 mg Tablet Take 2 [...] 1:02 PM EDT 1255 Pt arrived to [facility] recovery via stretcher S/P cardio version. VSS [...] 10:40 AM EST Office Visit Cardiology at [address] [place] [address] Chrissy Zepeda APRN [facility] [place] [address] Scheduled Orders Name Type Priority Associated Diagnoses [...] 6 PM EDT Cardioversion Elective Arrhythmia External ([id number]) 11/08/2022 12:38 PM EDT atrial flutter documented in this encounter Results * EKG 12 Lead (11/08/2022 1:18 PM EDT) Ventricular rate 47 BPM MUSE SYSTEM Atrial Rate 47 BPM MUSE SYSTEM P-R Interval 210 ms MUSE SYSTEM QRS Duration 104 ms MUSE SYSTEM Q-T Interval 476 ms MUSE SYSTEM QTC Calculated (Bezet) 421 ms MUSE SYSTEM Calculated P [place] 71 degrees MUSE SYSTEM Calculated R [place] 91 degrees MUSE SYSTEM Calculated T [place] 59 degrees MUSE SYSTEM INTERPRETATION Sinus bradycardia with 1st degree A-V block with Premature atrial complexes Rightward axis Borderline ECG When compared with ECG of 08-NOV-2022 11:19, Sinus rhythm has replaced Atrial flutter Vent. rate has decreased BY ??42 BPM QT has shortened Confirmed by MD Bob, Sloan ([id number]) on 11/10/2022 3:59:25 PM MUSE SYSTEM 11/08/2022 [...] CRNA) documented in this encounter Care Teams Sales And Service Technician Relationship Specialty Start Date End Date Tami Olivia [address] [place] [address] PCP - General Family Medicine 12/30/20 documented as of this encounter
--- OUTSIDE RECORDS SUMMARY | 2023-12-26 15:58 | XMS_ITS | Encounter Summary ---
Author Organization [facility] Address [facility] [place] [address] Care Team Providers Care Farmhand Name Role Phone Tami Olivia Primary Care Provider Encounter Details Date Type Department Care Team (Late st Contact Info) Description 05/19/2022 11:59 PM EST Anesthesia Event Surgical Unit Level 3 [place] [address] [facility] [place] [address] Anesthesia Record Procedure Summary Procedure [...] 10:40 AM EST Office Visit Cardiology at [address] [phone] [facility] [place] [address] Scheduled Procedures Name Priority Associated Diagnoses Date/Ti me CARDIOVERSION-ELECTIVE (WRVU 2) atrial flutter ELECTROPHYSIOLOGY PROCEDURE Persistent atrial fibrillation CARDIOVERSION-ELECTIVE (WRVU 2) persistent atrial fibrillation TRANSESOPHAGEAL ECHOCARDIOGR AM (WRVU 2.3) persistent atrial fibrillation documented as of this encounter Visit Diagnoses Not on filedocumented in this encounter Care Teams Farmhand Relationship Specialty Start Date End Date Tami Olivia [address] [place] [address] PCP - General Family Medicine 12/30/20 documented as of this encounter
--- OUTSIDE RECORDS SUMMARY | 2023-12-26 15:58 | XMS_ITS | Encounter Summary ---
Author Organization [facility] Address [facility] [place] [address] Care Team Providers Care General Medical Practitioner Name Role Phone Tami Olivia Primary Care Provider [phone] Encounter Details Date Type Department Care Team (Late st Contact Info) Description 06/07/2022 Telephone [place] [phone] Megan Reza, RN Social History Tobacco Use [...] 10:40 AM EST Office Visit Cardiology at [address] [phone] Chrissy Zepeda APRN [facility] [place] [address] Scheduled Procedures Name Priority Associated Diagnoses Date/Ti me CARDIOVERSION-ELECTIVE (WRVU 2) atrial flutter ELECTROPHYSIOLOGY PROCEDURE Persistent atrial fibrillation CARDIOVERSION-ELECTIVE (WRVU 2) persistent atrial fibrillation TRANSESOPHAGEAL ECHOCARDIOGR AM (WRVU 2.3) persistent atrial fibrillation documented as of this encounter Visit Diagnoses Not on filedocumented in this encounter Care Teams General Medical Practitioner Relationship Specialty Start Date End Date Tami Olivia [address] [place] [address] PCP - General Family Medicine 12/30/20 documented as of this encounter
--- OUTSIDE RECORDS SUMMARY | 2023-12-26 15:58 | XMS_ITS | Encounter Summary ---
Author Organization [facility] Address [facility] [place] [address] Care Team Providers Care Rn Relief Charge Name Role Phone Tami Olivia Primary Care Provider [phone] Reason for Visit * Reason Onset Date Comments Other 05/28/2022 Encounter Details Date Type Department Care Team (Late st Contact Info) Description 05/28/2022 Telephone Thoracic Surgery at [facility] [phone] Megan Reza, RN Other Social History Tobacco [...] 10:40 AM EST Office Visit Cardiology at [address] [phone] Chrissy Zepeda APRN [facility] [place] [address] Scheduled Procedures Name Priority Associated Diagnoses Date/Ti me CARDIOVERSION-ELECTIVE (WRVU 2) atrial flutter ELECTROPHYSIOLOGY PROCEDURE Persistent atrial fibrillation CARDIOVERSION-ELECTIVE (WRVU 2) persistent atrial fibrillation TRANSESOPHAGEAL ECHOCARDIOGR AM (WRVU 2.3) persistent atrial fibrillation documented as of this encounter Visit Diagnoses Not on filedocumented in this encounter Care Teams Rn Relief Charge Relationship Specialty Start Date End Date Tami Olivia [address] [place] [address] PCP - General Family Medicine 12/30/20 documented as of this encounter
--- OUTSIDE RECORDS SUMMARY | 2023-12-26 15:59 | XMS_ITS | Encounter Summary ---
Author Organization [facility] Address [facility] [place] [address] Care Team Providers Care Home Supervisor Name Role Phone Tami Olivia Primary Care Provider [phone] Reason for Visit * Reason Onset Date Comments Post Procedure Call 02/26/2022 Encounter Details Date Type Department Care Team (Late st Contact Info) Description 02/26/2022 Telephone Thoracic Surgery at [facility] [place] [phone] Megan Reza, RN Post Procedure Call Social [...] 10:40 AM EST Office Visit Cardiology at [address] [phone] Chrissy Zepeda APRN [facility] [place] [address] Scheduled Procedures Name Priority Associated Diagnoses Date/Ti me CARDIOVERSION-ELECTIVE (WRVU 2) atrial flutter ELECTROPHYSIOLOGY PROCEDURE Persistent atrial fibrillation CARDIOVERSION-ELECTIVE (WRVU 2) persistent atrial fibrillation TRANSESOPHAGEAL ECHOCARDIOGR AM (WRVU 2.3) persistent atrial fibrillation documented as of this encounter Visit Diagnoses Not on filedocumented in this encounter Care Teams Home Supervisor Relationship Specialty Start Date End Date Tami Olivia [address] [place] [address] PCP - General Family Medicine 12/30/20 documented as of this encounter
--- OUTSIDE RECORDS SUMMARY | 2023-12-26 15:59 | XMS_ITS | Encounter Summary ---
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 Procedures CT Chest w Contrast Gilmer Gutiérrez MD [facility] [place] [address] [facility] [place] [address] Referral ID Status Reason Start Date Expiration Date V isits Requested Visits Authorized [id number] Closed Specialty Service Requested 03/06/2022 09/05/2023 1 1 Reason for Visit * Diagnostic Test (Routine) - Closed Specialty Diagnoses / Procedures Referred By Bert gautam Referred To Contact Radiology Diagnoses Pleural effusion 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 Procedures CT Chest w Contrast Gilmer Gutiérrez MD [facility] [place] [address] [facility] [place] [address] Referral ID Status Reason Start Date Expiration Date V isits Requested Visits Authorized [id number] Closed Specialty Service Requested 03/06/2022 09/05/2023 1 1 Encounter Details Date Type Department Care Team (Latest Contact Info) Description 04/16/2022 2:16 PM EST - 04/16/2022 11:59 PM EST Hospital [place] [phone] Gilmer Gutiérrez MD [facility] [place] [address] Pleural effusion; Squamous cell carcinoma of left [...] gummies to help with smoking cessation. 12/12/2023 omeprazole (PriLOSEC) 20 mg Capsule, Delayed Release(E.C.) Take 20 mg by mouth daily. 03/12/2018 05/17/2022 documented as of this encounter Plan of Treatment Upcoming Encounters Date Type Department Care Team (Late st Contact Info) Description 01/20/2024 10:40 AM EST Office Visit Cardiology at [address] [address] Chrissy Zepeda APRN [facility] [place] [address] Scheduled Procedures Name Priority Associated Diagnoses Date/Ti [...] have questions please contact the health child caregiver private home that requested your imaging first. ? Electronically signed by: Maryann Magallanes MD, [facility] ([phone]), at 04/16/2022 7:31 PM Narrative 04/16/2022 7:31 [...] who have questions please contactthe health child caregiver private home that requested your imaging first. Electronically signed by: Maryann Magallanes MD, [facility]([phone]), at 04/16/2022 7:31 PM Gilmer Gutiérrez MD [...] mLs documented in this encounter Care Teams Paralegal Relationship Specialty Start Date End Date KobejaylamarTami Desir [address] [place] [address] PCP - General Family Medicine 12/30/20 documented as of this encounter
--- OUTSIDE RECORDS SUMMARY | 2023-12-26 15:59 | XMS_ITS | Encounter Summary ---
Author Organization [facility] [place] [address] Care Team Providers Care Combat Engineer Name Role Phone Tami Olivia Primary Care Provider [phone] [phone] Encounter Details Date Type Department Care Team [...] 10:40 AM EST Office Visit Cardiology at [address] [address] Chrissy Zepeda APRN [facility] [place] [address] Scheduled Procedures Name Priority Associated Diagnoses Date/Ti me CARDIOVERSION-ELECTIVE (WRVU 2) atrial flutter ELECTROPHYSIOLOGY PROCEDURE Persistent atrial fibrillation CARDIOVERSION-ELECTIVE (WRVU 2) persistent atrial fibrillation TRANSESOPHAGEAL ECHOCARDIOGR AM (WRVU 2.3) persistent atrial fibrillation documented as of this encounter Visit Diagnoses Not on filedocumented in this encounter Care Teams Combat Engineer Relationship Specialty Start Date End Date Tami Olivia [address] [place] [address] PCP - General Family Medicine 12/30/20 documented as of this encounter
--- OUTSIDE RECORDS SUMMARY | 2023-12-26 15:59 | XMS_ITS | Encounter Summary ---
Author Organization [facility] Address [facility] [place] [address] Care Team Providers Care Supervisor Post Wave Name Role Phone SudhakarJacksonTami Primary Care Provider [phone] [phone] Encounter Details Date Type Department Care Team (Latest Contact Info) Description 03/06/2022 11:37 AM EST - 03/06/2022 11:59 PM [facility] Hospital Encounter XRay at [address] [place] [address] Squamous cell carcinoma of left lung Discharge [...] 11/01/2014 AMIOdarone (Paceron) 200 mg Tablet Take 1 [...] AM EST Office Visit Cardiology at [address] [address] Chrissy Zepeda, FIXED ASSETS ACCOUNTANT [facility] [place] [address] Scheduled Procedures Name Priority Associated Diagnoses Date/Ti [...] who have questions please contact the health cardiac care nurse that requested your imaging first. ? Electronically signed by: Marcus Edwards MD, [facility] ([phone]), at 03/06/2022 2:27 PM Narrative 03/06/2022 2:27 [...] patients who have questions please contactthe health cardiac care nurse that requested your imaging first. Electronically signed by: Marcus Edwards MD, [facility]([phone]), at 03/06/2022 2:27 PM Gilmer Gutiérrez MD IMG DX ORDERABLE S documented in this encounter Visit Diagnoses Diagnosis Squamous cell carcinoma of left lung documented in this encounter Care Teams Supervisor Post Wave Relationship Specialty Start Date End Date Tami Olivia [address] [place] [address] PCP - General Family Medicine 12/30/20 documented as of this encounter
--- OUTSIDE RECORDS SUMMARY | 2023-12-26 15:59 | XMS_ITS | Encounter Summary ---
Author Organization [facility] [place] [address] Care Team Providers Care Traffic Officer Name Role Phone Tami Olivia Primary Care Provider +1 [phone] Encounter Details Date Type Department Care Team (Late st Contact Info) Description 02/22/2022 Telephone [place] [phone] Megan Reza, RN Social History Tobacco Use [...] 10:40 AM EST Office Visit Cardiology at [address] [address] Chrissy Zepeda, MORTEZA [facility] [place] [address] Scheduled Procedures Name Priority Associated Diagnoses Date/Ti me CARDIOVERSION-ELECTIVE (WRVU 2) atrial flutter ELECTROPHYSIOLOGY PROCEDURE Persistent atrial fibrillation CARDIOVERSION-ELECTIVE (WRVU 2) persistent atrial fibrillation TRANSESOPHAGEAL ECHOCARDIOGR AM (WRVU 2.3) persistent atrial fibrillation documented as of this encounter Visit Diagnoses Not on filedocumented in this encounter Care Teams Traffic Officer Relationship Specialty Start Date End Date Tami Olivia [address] [place] [address] PCP - General Family Medicine 12/30/20 documented as of this encounter
--- OUTSIDE RECORDS SUMMARY | 2023-12-26 15:59 | XMS_ITS | Encounter Summary ---
Author Organization [facility] Address [facility] [place] [address] Care Team Providers Care School Bus Attendant Name Role Phone Tami Olivia Primary Care Provider [phone] [phone] Encounter Details Date Type Department Care Team (Late st Contact Info) Description 05/18/2022 Interpretation Only Radiology [address] [place] [address] KAITLYNN Bright [phone] Unknown None Social History Tobacco Use Types [...] 10:40 AM EST Office Visit Cardiology at [address] [phone] Chrissy Zepeda, LABORATORY COORDINATOR [facility] [place] [address] Scheduled Procedures Name Priority Associated Diagnoses Date/Ti [...] on filedocumented in this encounter Care Teams School Bus Attendant Relationship Specialty Start Date End Date Aldair-Tami Paz [address] [place] [address] PCP - General Family Medicine 12/30/20 documented as of this encounter
--- OUTSIDE RECORDS SUMMARY | 2023-12-26 15:59 | XMS_ITS | Encounter Summary ---
Author Organization [facility] Address [place] [address] Care Team Providers Care Truer Pinion And Wheel Name Role Phone Tami Olivia Primary Care Provider +1 [phone] Encounter Details Date Type Department Care Team (Late st Contact Info) Description 05/01/2022 Orders [place] [phone] Megan Reza RN Social History Tobacco Use [...] AM EST Office Visit Cardiology at [address] [phone] Chrissy Zepeda, NURSES ASSISTANT [facility] [address] Scheduled Procedures Name Priority Associated Diagnoses Date/Ti me CARDIOVERSION-ELECTIVE (WRVU 2) atrial flutter ELECTROPHYSIOLOGY PROCEDURE Persistent atrial fibrillation CARDIOVERSION-ELECTIVE (WRVU 2) persistent atrial fibrillation TRANSESOPHAGEAL ECHOCARDIOGR AM (WRVU 2.3) persistent atrial fibrillation documented as of this encounter Visit Diagnoses Not on filedocumented in this encounter Care Teams Truer Pinion And Wheel Relationship Specialty Start Date End Date Tami Olivia [address] [place] [address] PCP - General Family Medicine 12/30/20 documented as of this encounter
--- OUTSIDE RECORDS SUMMARY | 2023-12-26 15:59 | XMS_ITS | Encounter Summary ---
Author Organization [facility] [place] [address] Care Team Providers Care It Help Desk Associate Name Role Phone Tami Olivia Primary Care Provider [phone] [phone] Encounter Details Date Type Department Care Team (Late st Contact Info) Description 04/27/2022 Telephone [place] [address] Anayeli Brown Social History Tobacco [...] 11:31 AM EST Copied from [facility] #[id number]. Topic: Specialty Dept CRMs - Generic Call [...] AM EST Office Visit Cardiology at [address] [phone] Chrissy Zepead, MORTEZA [facility] [place] [address] Scheduled Procedures Name Priority Associated Diagnoses Date/Ti me CARDIOVERSION-ELECTIVE (WRVU 2) atrial flutter ELECTROPHYSIOLOGY PROCEDURE Persistent atrial fibrillation CARDIOVERSION-ELECTIVE (WRVU 2) persistent atrial fibrillation TRANSESOPHAGEAL ECHOCARDIOGR AM (WRVU 2.3) persistent atrial fibrillation documented as of this encounter Visit Diagnoses Not on filedocumented in this encounter Care Teams It Help Desk Associate Relationship Specialty Start Date End Date Tami Olivia [address] [place] [address] PCP - General Family Medicine 12/30/20 documented as of this encounter
--- OUTSIDE RECORDS SUMMARY | 2023-12-26 15:59 | XMS_ITS | Encounter Summary ---
Author Organization [facility] Address [facility] [place] [address] Care Team Providers Care Grocery Shopper Name Role Phone Tami Olivia Primary Care Provider +1 [phone] Encounter Details Date Type Department Care Team (Late st Contact Info) Description 05/15/2022 Telephone Thoracic Surgery at [facility] [place] [phone] Megan Reza RN Social History Tobacco Use [...] AM EST Office Visit Cardiology at [address] [address] Chrissy Zepeda, MORTEZA [facility] [place] [address] Scheduled Procedures Name Priority Associated Diagnoses Date/Ti me CARDIOVERSION-ELECTIVE (WRVU 2) atrial flutter ELECTROPHYSIOLOGY PROCEDURE Persistent atrial fibrillation CARDIOVERSION-ELECTIVE (WRVU 2) persistent atrial fibrillation TRANSESOPHAGEAL ECHOCARDIOGR AM (WRVU 2.3) persistent atrial fibrillation documented as of this encounter Visit Diagnoses Not on filedocumented in this encounter Care Teams Grocery Shopper Relationship Specialty Start Date End Date Tami Olivia [address] [place] [address] PCP - General Family Medicine 12/30/20 documented as of this encounter
--- OUTSIDE RECORDS SUMMARY | 2023-12-26 15:59 | XMS_ITS | Encounter Summary ---
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 Procedures CT Chest w Contrast Gilmer Gutiérrez MD [facility] [place] [address] [facility] [place] [address] Referral ID Status Reason Start Date Expiration Date V isits Requested Visits Authorized [id number] Closed Specialty Service Requested 03/06/2022 09/05/2023 1 1 Reason for Visit * Reason Comments Follow-up Encounter Details Date Type Department Care Team (Late st Contact Info) Description 03/06/2022 1:00 PM EST Office Visit [place] [phone] Gilmer Gutiérrez MD [facility] [place] [address] Pleural effusion; Squamous cell carcinoma [...] AM EST Office Visit Cardiology at [address] [phone] Chrissy Zepeda APRN [facility] [place] [address] Scheduled Procedures Name Priority Associated Diagnoses Date/Ti [...] who have questions please contact the health floor care technician that requested your imaging first. ? Electronically signed by: Maryann Magallanes MD, [facility] ([phone]), at 04/16/2022 7:31 PM Narrative 04/16/2022 7:31 [...] patients who have questions please contactthe health floor care technician that requested your imaging first. 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
--- OUTSIDE RECORDS SUMMARY | 2023-12-26 15:59 | XMS_ITS | Encounter Summary ---
Author Organization [facility] Address [facility] [place] [address] Care Team Providers Care Help Desk Assistant Name Role Phone Tami Olivia Primary Care Provider +1 [phone] Encounter Details Date Type Department Care Team (Late st Contact Info) Description 04/24/2022 Orders Only [place] [phone] Gilmer Gutiérrez MD [facility] [place] [address] Status post lobectomy of lung Social History [...] 10:40 AM EST Office Visit Cardiology at [address] [phone] Chrissy Zepeda APRN [facility] [place] [address] Scheduled Procedures Name Priority Associated Diagnoses Date/Ti me CARDIOVERSION-ELECTIVE (WRVU 2) atrial flutter ELECTROPHYSIOLOGY PROCEDURE Persistent atrial fibrillation CARDIOVERSION-ELECTIVE (WRVU 2) persistent atrial fibrillation TRANSESOPHAGEAL ECHOCARDIOGR AM (WRVU 2.3) persistent atrial fibrillation documented as of this encounter Visit Diagnoses Diagnosis Status post lobectomy of lung Other postprocedural status documented in this encounter Care Teams Help Desk Assistant Relationship Specialty Start Date End Date Tami Olivia [address] [place] [address] PCP - General Family Medicine 12/30/20 documented as of this encounter
--- OUTSIDE RECORDS SUMMARY | 2023-12-26 15:59 | XMS_ITS | Encounter Summary ---
Author Organization Count Includes [facility] [address] Care Team Providers Care Home Office Claims Examiner Name Role Phone Tami Olivia Primary Care Provider [phone] [phone] Encounter Details Date Type Department Care Team [...] AM EST Office Visit Cardiology at [address] [address] Chrissy Zepeda APRN [facility] [place] [address] Scheduled Procedures Name Priority Associated Diagnoses Date/Ti me CARDIOVERSION-ELECTIVE (WRVU 2) atrial flutter ELECTROPHYSIOLOGY PROCEDURE Persistent atrial fibrillation CARDIOVERSION-ELECTIVE (WRVU 2) persistent atrial fibrillation TRANSESOPHAGEAL ECHOCARDIOGR AM (WRVU 2.3) persistent atrial fibrillation documented as of this encounter Visit Diagnoses Not on filedocumented in this encounter Care Teams Home Office Claims Examiner Relationship Specialty Start Date End Date Tami Olivia [address] [place] [address] PCP - General Family Medicine 12/30/20 documented as of this encounter
--- OUTSIDE RECORDS SUMMARY | 2023-12-26 15:59 | XMS_ITS | Encounter Summary ---
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 Procedures PRO THORACOSCOPY SURG TOT PULM DECORT @ROBOT XI THORACOSCOPY,SURG; W TOTAL DECORTICATION (WRVU 29.13) Parth Foster MD [facility] [place] [address] [facility] Referral ID Status Reason Start Date Expiration Date Visits Re quested Visits Authorized [id number] 1 1 Encounter Details Date Type Department Care Team (Late st Contact Info) Description 05/18/2022 8:30 AM EST - 05/18/2022 2:15 PM EST Surgery [place] [address] Parth Foster MD [facility] [place] [address] @THORACOTOMY,DECORTICA TION, PULMONARY, TOTAL (WRVU 26.65) Social [...] Primary * Linda Mustafa PA - Physician Enzyme Chemist * Renu Donald PA - Physician Enzyme Chemist * Morales Arams MD - Resident Procedure: Procedure(s): @THORACOTOMY,DECORTICATION, PULMONARY, TOTAL (WRVU 26.65) BRONCHOSCOPY, DIAGNOSTIC (WRVU 2.53) MODIFIER RIB RESECTION @MAJOR RECONSTRUCTION, CHEST WALL (WRVU 22.51) Other Major Procedures: n/a History of Presentation: Rajan Marquez is a 71 y.o. male just over 1 year removed from a thoracoscopic left upper lobectomy,with a subsequent pleural effusion and now apparent fibrothorax. Hospital Course: Rajan Marquez was admitted to [facility] on 05/18/2022 via the Same Day Program. [...] questions please contact the health day care supervisor that requested your imaging first. Electronically signed by: Maryann Magallanes MD, [facility] ([phone]), at 05/18/2022 4:02 PM XR Chest PA [...] questions please contact the health day care supervisor that requested your imaging first. Electronically signed by: Savanah Suazo MD, [facility] ([phone]), at 05/19/2022 11:16 AM XR Chest PA [...] questions please contact the health day care supervisor that requested your imaging first. Electronically signed by: Philip Church MD, [facility] ([phone]), at 05/23/2022 7:33 AM XR Chest PA [...] questions please contact the health day care supervisor that requested your imaging first. Electronically signed by: Marcus Edwards MD, [facility] ([phone]), at 05/24/2022 8:58 AM XR Chest PA [...] questions please contact the health day care supervisor that requested your imaging first. Electronically signed by: Marcus Edwards MD, [facility] ([phone]), at 05/24/2022 10:06 AM Pending Studies and [...] a nurse in the Thoracic Clinic at [phone]. After hours or on weekends or holidays please call: [phone] and ask to speak to the Thoracic Surgeon onsite case manager. Exercise & Activity Level: As you [...] please call the thoracic surgery clinic at [phone]. Driving: No driving for 1 week or [...] the Thoracic Clinic or the Thoracic Surgeon onsite case manager after hours. Please take over the [...] Expires XR Chest PA & Lateral (Generic) [[id number] Custom] 06/07/2022 12/07/2022 Process Instructions: Scheduling Instructions: Questions: Reason for exam and clinical history: s/p left thoracotomy and decortication Clinical information / bryan questions for radiologist: eval for effusion and/or ptx Where will study be performed?: [facility] Radiology Portable exam?: Stat read required?: Date of injury if applicable: Requested Time: Referral to Pulmonary Rehab [[id number] Custom] As directed Process Instructions: Scheduling Instructions: Questions: May include the following tests: Breathing Retraining: Diaphragmatic Techniques Provider Contact Information: Primary Care Provider: Tami Olivia [phone] Discharge References/Attachments: Discharge References/Attachments None For questions [...] a nurse in the Thoracic Clinic at [phone]. After hours or on weekends or holidays please call: [phone] and ask to speak to the Thoracic Surgeon onsite case manager. Exercise & Activity Level: As you [...] please call the thoracic surgery clinic at [phone]. Driving: No driving for 1 week or [...] the Thoracic Clinic or the Thoracic Surgeon onsite case manager after hours. Please take over the [...] cane for ~ 2 weeks. 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 Enjoys 4-wheeling, kayaking and [...] reach and aware to call for staff registered nurse assistance with all mobility. Education: Pt educated on ther-ex, breathing, LUE precautions and sling use- and to wait for LUE activity and ROM progression until MD follow, and to have supervision of staff registered nurse or family for safetywith all mobility Assessment: Rajan Marquez was seen today [facility]. Pt friendly and pleasant and was [...] and d/c planning. LUIS MIGUEL PEREZ, PT Pager:[phone] Physical Therapy Inpatient Rehabilitation Department * Radha [...] IR Thoracentesis Left 11/08/2021 Ramírez Ramirez MD [facility] INTERVENTIONL RAD ??? PRO BRONCHOSCOPY, DIAGNOSTIC N/A 03/29/2021 ?? BRONCHOSCOPY, DIAGNOSTIC (WRVU 2.78) performed by Parth Foster MD at [facility] MAIN OR ??? PRO BRONCHOSCOPY, DIAGNOSTIC N/A 02/08/2022 ?? BRONCHOSCOPY, DIAGNOSTIC (WRVU 2.78) performed by aPrth Foster MD at [facility] OR ??? PRO BRONCHOSCOPY, DIAGNOSTIC N/A 05/18/2022 ?? BRONCHOSCOPY, DIAGNOSTIC (WRVU 2.53) performed by Parth Foster MD at [facility] OR ??? PRO DECORTICATION, PULMONARY, TOTAL Left 05/18/2022 ?? @THORACOTOMY,DECORTICATION, PULMONARY, TOTAL (WRVU 26.65) performed by Parth Foster MDat [facility] OR ? ? PRO INJECTION ANES AGENT &/ STEROID INTERCOSTAL NERVE SINGLE LEVEL Left 03/29/2021 ?? NERVE BLOCK, INTERCOSTAL NERVE (WRVU 1.18) performed by Parth Foster MD at [facility] MAIN OR ??? PRO RECONSTRUCT INJURED CHEST Left 05/18/2022 ?? @MAJOR RECONSTRUCTION, CHEST WALL (WRVU 22.51) performed by Parth Foster MD at [facility] MAIN OR ??? PRO THORACOSCOPY SURG LOBECTOMY Left 03/29/2021 ?? @THORACOSCOPY,SURGICAL,W\LOBECTOMY,TOTAL OR SEGMENTAL (WRVU 24.64) performed by Parth Foster MD at [facility] MAIN OR ??? PRO THORACOSCOPY WITH BIOPSY OF PLEURA Left 02/08/2022 ?? THORACOSCOPY; WITH BIOPSY(IES) OF PLEURA (WRVU 4.58) performed by Parth Foster MD at [facility] MAIN OR ??? PRO THORACOSCOPY WITH MEDIASTINAL AND REGIONAL LYMPHADENECTOMY ?? 03/29/2021 ?? @THORACOSCOPY, SURG; W/MEDIASTINAL& REGIONAL LYMPHADENECTOMY (WRVU 4.12) performed by Parth Foster MD at [facility] OR ??? PRO THORACOSCOPY WITH WEDGE RESECTION AND ANATOMIC LUNG RESECTN Left 03/29/2021 ?? @THORACOSCOPY, SURG; W/DX WEDGE RESC W/ANATOMIC LUNG RESC (WRVU 3) performed by Parth Foster MD at [facility] OR ? Social History: Patient [...] more times Total Minutes, Occupational Therapy: 25 (hi x2 ([phone]) Pager: [phone] GRAEME Velasco 05/24/2022 Occupational Therapy Rehabilitation Department [...] APMS will sign off at this time. IOJ, RN, have performed the documentation for this [...] cane for ~ 2 weeks. 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 Enjoys 4-wheeling, kayaking and yard work. Equipment [...] reach and aware to call for staff registered nurse assistance with all mobility. Education: Pt educated on ther-ex, breathing, and to call for assistance with all mobility Assessment: Rajan Marquez was seen today for physical [facility] Pt friendly and agreeable to mobilize with encouragement, but needs assistance with line and tube management and cues for safety. He may be getting chest tube d/c'd tomorrow. He is aware to callfor assistance with mobility, and staff registered nurse aware of his status. Expect d/c [...] Code: functional mobility LUIS MIGUEL PEREZ, PT Pager:[phone] Physical Therapy Inpatient Rehabilitation Department * Messi [...] ?? 11/08/2021 ?? IR Thoracentesis Left 11/08/2021 ForRamírez caldera MD [facility] INTERVENTIONL RAD ??? PRO BRONCHOSCOPY, DIAGNOSTIC N/A 03/29/2021 ?? BRONCHOSCOPY, DIAGNOSTIC (WRVU 2.78) performed by Parth Foster MD at [facility] MAIN OR ??? PRO BRONCHOSCOPY, DIAGNOSTIC N/A 02/08/2022 ?? BRONCHOSCOPY, DIAGNOSTIC (WRVU 2.78) performed by Parth Foster MD at [facility] OR ??? PRO BRONCHOSCOPY, DIAGNOSTIC N/A 05/18/2022 ?? BRONCHOSCOPY, DIAGNOSTIC (WRVU 2.53) performed by Parth Foster MD at [facility] OR ??? PRO DECORTICATION, PULMONARY, TOTAL Left 05/18/2022 ?? @THORACOTOMY,DECORTICATION, PULMONARY, TOTAL (WRVU 26.65) performed by Parth Foster MDat [facility] OR ? ? PRO INJECTION ANES AGENT &/ STEROID INTERCOSTAL NERVE SINGLE LEVEL Left 03/29/2021 ?? NERVE BLOCK, INTERCOSTAL NERVE (WRVU 1.18) performed by Parth Foster MD at [facility] OR ??? PRO RECONSTRUCT INJURED CHEST Left 05/18/2022 ?? @MAJOR RECONSTRUCTION, CHEST WALL (WRVU 22.51) performed by Parth Foster MD at [facility] MAIN OR ??? PRO THORACOSCOPY SURG LOBECTOMY Left 03/29/2021 ?? @THORACOSCOPY,SURGICAL,W\LOBECTOMY,TOTAL OR SEGMENTAL (WRVU 24.64) performed by Parth Foster MD at [facility] MAIN OR ??? PRO THORACOSCOPY WITH BIOPSY OF PLEURA Left 02/08/2022 ?? THORACOSCOPY; WITH BIOPSY(IES) OF PLEURA (WRVU 4.58) performed by Parth Foster MD at [facility] MAIN OR ??? PRO THORACOSCOPY WITH MEDIASTINAL AND REGIONAL LYMPHADENECTOMY ?? 03/29/2021 ?? @THORACOSCOPY, SURG; W/MEDIASTINAL& REGIONAL LYMPHADENECTOMY (WRVU 4.12) performed by Parth Foster MD at [facility] MAIN OR ??? PRO THORACOSCOPY WITH WEDGE RESECTION AND ANATOMIC LUNG RESECTN Left 03/29/2021 ?? @THORACOSCOPY, SURG; W/DX WEDGE RESC W/ANATOMIC LUNG RESC (WRVU 3) performed by Parth Foster MD at [facility] MAIN OR ? Social History: Patient [...] Dressing: Min A (pt donned and doffed [facility] gown with assistance for line management) [...] more times Total Minutes, Occupational Therapy: 34 ([facility] X2 ([phone])) Pager: [phone] Messi Dooley OT 05/23/2022 Occupational Therapy Rehabilitation [...] RESECTION @MAJOR RECONSTRUCTION, CHEST WALL (WRVU 22.51) [facility] EPIDURAL ROUNDIN05/23/2022 10:41 AM Average Numeric Rating [...] acting as a scribe for Dr. Molina. [facility] Nurse: Oj Don RN Resident:: Jakob Dickerson DO Attending Physician:: Katie Molina MD I performed the above scribed service and agree with the accuracy of the note. KATIE MOLINA MD * Camilo Stevenson PA - 05/23/2022 9:19 AM EDT [facility] Department of Thoracic Surgery Inpatient Progress Note Patient Name: Rajan Marquez Patient : 1950 Patient Patient Location: [address] [place] [address] Attending Surgeon: PARTH FOSTER ID: Rajan Marquez [...] Visit from 04/30/2022 in Thoracic Surgery at [facility] Weight 73.1 kilograms, or 161 pounds 2.5 [...] peripheral edema. 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 No surrounding [...] STEVE Black 05/23/2022 Thoracic Surgery Service Pager [phone] * Katie Molina MD - 05/22/2022 9:34 [...] RESECTION @MAJOR RECONSTRUCTION, CHEST WALL (WRVU 22.51) [facility] EPIDURAL ROUNDIN05/22/2022 9:34 AM Average Numeric [...] acting as a scribe for Dr. Molina. [facility] Nurse: Oj Don RN Resident:: Jakob Dickerson DO Attending Physician:: Katie Molina MD I performed the above scribed service and agree with the accuracy of the note. KATIE MOLINA MD * Renu Donald PA - 05/22/2022 6:40 AM EDT Images from the original note were not included. [facility] Department of Thoracic Surgery Inpatient Progress Note Patient Name: Rajan Marquez Patient : 1950 Patient Patient Location: [address] [place] [address] Attending Surgeon: PARTH FOSTER ID: Rajan Marquez [...] Visit from 04/30/2022 in Thoracic Surgery at [facility] Weight 77 kg (169 lb 11.2 oz) [...] peripheral edema. 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 No surrounding erythema, tenderness, drainage, or crepitus. Tubes/Lines/Drains: L Pleural CT, Matt, PIV, epidural I/O: I/O last 3 completed shifts: In: 8714.2 [P.O.:1708; I.V.:1560; Other:106.2] Out: 3940 [Urine:3450; Other:490] L CT: 290cc/24hr, 120cc/12hr, 400cc/previous day, SS, no air leak, -20 suction Labs: Last 3 wbc, hgb, hct plt Recent Labs 05/22/22 0347 05/21/22 0409 05/20/22 0408 WBC 7.3 6.7 7.5 HGB 7.6* 7.9* 8.0* HCT 24.3* 25.6* 25.9* PLATELET 236 226 207 Last 3 Lytes Recent Labs 05/22/2234605/21/2240805/20/22 040 NA 137 137 133* K 3.8 3.5 [...] STEVE Patel 05/22/2022 Thoracic Surgery Service Pager [phone] * Devorah Rivera RN - 05/22/2022 4:40 AM EDT OUTCOME EVALUATION NOTE: OUTCOME SUMMARY: Pt A&Ox4, pleasant and cooperative with care. Delirium precautions maintained. Complaints of pain to L CT site- scheduled pain medications and epidural infusion in place. Pain well controlled. Nocomplaints of SOB/PETERSON tolerating RA. CT to continuous sx -20 with continuous air leak, aware. Output recorded in eflowsheets. No complaints [...] on Hands on Surveillance [continuous indirect monitoring]: aMrlys, Patient Safety Rounding * Chris Luis Miguel Yadi, PT - 05/21/2022 5:48 PM EDT Physical [...] IR Thoracentesis Left 11/08/2021 Ramírez Ramirez MD [facility] INTERVENTIONL RAD ??? PRO BRONCHOSCOPY, DIAGNOSTIC N/A 03/29/2021 BRONCHOSCOPY, DIAGNOSTIC (WRVU 2.78) performed by Parth Foster MD at [facility] MAIN OR ??? PRO BRONCHOSCOPY, DIAGNOSTIC N/A 02/08/2022 BRONCHOSCOPY, DIAGNOSTIC (WRVU 2.78) performed by Parth Foster MD at [facility] MAIN OR ??? PRO BRONCHOSCOPY, DIAGNOSTIC N/A 05/18/2022 BRONCHOSCOPY, DIAGNOSTIC (WRVU 2.53) performed by Parth Foster MD at [facility] MAIN OR ??? PRO DECORTICATION, PULMONARY, TOTAL Left 05/18/2022 @THORACOTOMY,DECORTICATION, PULMONARY, TOTAL (WRVU 26.65) performed by Parth Foster MD [facility] MAIN OR ? ? PRO INJECTION ANES AGENT &/ STEROID INTERCOSTAL NERVE SINGLE LEVEL Left 03/29/2021 NERVE BLOCK, INTERCOSTAL NERVE (WRVU 1.18) performed by Parth Foster MD at [facility] MAIN OR ??? PRO RECONSTRUCT INJURED CHEST Left 05/18/2022 @MAJOR RECONSTRUCTION, CHEST WALL (WRVU 22.51) performed by Parth Foster MD at [facility] MAIN OR ??? PRO THORACOSCOPY SURG LOBECTOMY Left 03/29/2021 @THORACOSCOPY,SURGICAL,W\LOBECTOMY,TOTAL OR SEGMENTAL (WRVU 24.64) performed by Johana Foster MD at [facility] MAIN OR ??? PRO THORACOSCOPY WITH BIOPSY OF PLEURA Left 02/08/2022 THORACOSCOPY; WITH BIOPSY(IES) OF PLEURA (WRVU 4.58) [facility]?? PRO THORACOSCOPY WITH MEDIASTINAL AND REGIONAL LYMPHADENECTOMY 03/29/2021 @THORACOSCOPY, SURG; W/MEDIASTINAL& REGIONAL LYMPHADENECTOMY (WRVU 4.12) performed by Parth Foster MD at [facility] MAIN OR ??? PRO THORACOSCOPY WITH WEDGE RESECTION AND ANATOMIC LUNG RESECTN Left 03/29/2021 @THORACOSCOPY, SURG; W/DX WEDGE RESC W/ANATOMIC LUNG RESC (WRVU 3) performed by Johana Foster MD at [facility] MAIN OR Social History: Home set-up: Lives in a ranch style home with a basement and his partner. Bathroom Set-up: Walk in or tub shower on the main level, usually uses the tub shower. Stairs: ramp to enter. Baseline Mobility: hasn't been driving recently and has been using a cane for ~ 2 weeks. 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 Enjoys 4-wheeling, kayaking and [...] Discharge planning and to call for staff registered nurse assistance with all mobility and needs [...] Code: evaluation LUIS MIGUEL PEREZ, PT Pager: [phone] Physical Therapy Inpatient Rehabilitation Department * Sites, [...] New Bag 05/20/2022 Epidural Rate/Dose Change 05/20/2022 [facility] EPIDURAL ROUNDIN05/21/2022 9:38 AM Average Numeric Rating [...] catheter when his chest tube is removed. MESSI Palomino RN, have performed the documentation for this encounter in the presence of andacting as a scribe for Dr. Karri Ellis. Anesthesia Staff ([facility]) Patient seen and examined on daily rounds. I agree with the above assessment and plan. [facility] Nurse: Messi Vieira RN Resident:: Jakob Dickerson DO Attending Physician:: Karri Ellis MD * Renu Donald PA - 05/21/2022 8:11 AM EDT Images from the original note were not included. [facility] Department of Thoracic Surgery Inpatient Progress Note Patient Name: Rajan Marquez Patient : 1950 Patient Patient Location: [address] [place] [address] Attending Surgeon: PARTH FOSTER ID: Rajan Marquez [...] Visit from 04/30/2022 in Thoracic Surgery at [facility] Weight 77.3 kg (170 lb 8 oz) [...] QTC Calculated (Bezet) 492 ms Calculated P Doddridge 106 degrees Calculated R Doddridge 71 degrees Calculated T Doddridge -169 degrees INTERPRETATION Sinus tachycardia Incomplete left bundle block Minimal voltage criteria for LVH, may be normal variant ( [place] product ) Nonspecific ST and T wave [...] Result Value Ref Range Surgical Pathology Report [id number] Location: OR; OR11; A The signing pathologist has (i) examined the relevant preparation(s) for the specimen(s) and (ii) rendered or confirmed the diagnosis(es). . Frozen Section FROZEN SECTION DIAGNOSIS CFS - VISCERAL PLEURAL RIND. 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 of Pathology, [place] [address] Dispatch Supervisor: Maria Ines Marrufo MD, FCAP, CLIA Certificate: [id number] This intraoperative consultation should be interpreted as [...] MD Verified: 05/18/2022 11:25 Pathologist Performed at: -[facility] Dept. of Pathology, [place] [address] Dispatch Supervisor: Maria Ines Marrufo MD, FCAP, CLIA Certificate: [id number] This intraoperative consultation should be interpreted as [...] Value Ref Range T&S only valid at [facility] Hosp Basic Metabolic Panel (non-fasting) Result Value [...] QTC Calculated (Bezet) 454 ms Calculated R Doddridge 82 degrees Calculated T Doddridge -102 degrees INTERPRETATION Sinus tachycardia with 1st [...] Epidural w/ PCEA per APS recommendations. Tylenol, CCU NURSE Bupropion Card: May consider increasing Metoprolol to 25mg BID, amiodarone (200mg daily) Pulm: IS/cough/deep breathe/OOB/ambulate. Continue left CT to -20 suction, monitor output. CCU NURSE spiriva, albuterol FENGI: Stop IVF, Regular diet. RBOs Renal/: Matt in place - will keep until epidural out, monitor UOP Heme: SQH, holding home Xarelto ID: SHELLEY Endo: SHELLEY MSK: CCU NURSE hydroxychloroquine for synovitis PPx: scds; SQH, Ambulate 4x a day. OOB. Other: Left arm in sling when OOB Dispo: full code, floor status All plans formulated in discussion with and directed by attending thoracic surgeon Dr. Foster. STEVE Peñaloza 05/21/2022 Thoracic Surgery Service Pager [phone] * Devorah Rivera RN - 05/21/2022 4:15 [...] indirect monitoring]: Marlys, Patient Safety Rounding * Caleb, Karri Sharp MD - 05/20/2022 8:32 AM EDT Acute [...] Davis MD - 05/20/2022 7:39 AM EDT [facility] Department of Thoracic Surgery Inpatient Progress Note Patient Name: Rajan Marquez Patient : 1950 Patient Patient Location: [address] [place] [address] Attending Surgeon: PATRH FOSTER ID: Rajan Marquez is a 71 [...] Visit from 04/30/2022 in Thoracic Surgery at [facility] Weight 75.4 kg (166 lb 3.2 oz) [...] QTC Calculated (Bezet) 492 ms Calculated P Doddridge 106 degrees Calculated R Doddridge 71 degrees Calculated T Doddridge -169 degrees INTERPRETATION Sinus tachycardia Incomplete left bundle block Minimal voltage criteria for LVH, may be normal variant ( [place] product ) Nonspecific ST and T wave [...] Result Value Ref Range Surgical Pathology Report [id number] Location: OR; OR11; A The signing pathologist has (i) examined the relevant preparation(s) for the specimen(s) and (ii) rendered or confirmed the diagnosis(es). . Frozen Section FROZEN SECTION DIAGNOSIS CFS - VISCERAL PLEURAL RIND. FROZEN, excision for frozen section Inflamed pleura, no evidence of malignancy (agricultural sales representative sample) 05/18/22 11:27 Electronically signed by: Malia Lacy MD Verified: 05/18/2022 11:29 Pathologist Performed at: [facility] Dept. of Pathology, [place] [address] Dispatch Supervisor: Maria Ines Marrufo MD, FCLESLY, CLIA Certificate: [id number] This intraoperative consultation should be interpreted as [...] MD Verified: 05/18/2022 11:25 Pathologist Performed at: [facility] Dept. of Pathology, [place] [address] Dispatch Supervisor: Maria Ines Marrufo MD, FCAP, CLIA Certificate: [id number] This intraoperative consultation should be interpreted as [...] Value Ref Range T&S only valid at [facility] Hosp Basic Metabolic Panel (non-fasting) Result Value [...] questions please contact the health day care supervisor that requested your imaging first. Electronically signed by: Maryann Magallanes MD, [facility] ([phone]), at 05/18/2022 4:02 PM Assessment: Rajan Marquez [...] PT consulted. Plan: Neuro: Epidural w/ PCEA. CCU NURSE bupropion Card: HDS, CCU NURSE metoprolol, amiodarone (200mg daily) Pulm: IS/cough/deep breathe/OOB/ambulate. Continue left CT to -20 suction, monitor output. CCU NURSE spiriva, albuterol FENGI: LR @100 ml/hr, Regular diet. RBOs Renal/: Matt in place, monitor UOP Heme: SQH ID: SHELLEY Endo: SHELLEY MSK: CCU NURSE hydroxychloroquine for synovitis PPx: scds; SQH, Ambulate 4x a day. OOB. Dispo: full code, floor status Vaughn Davis MD 05/20/2022 Thoracic Surgery Service Pager [phone] * Sites, Karri Sharp MD - 05/19/2022 9:31 AM [...] Armas MD - 05/19/2022 8:15 AM EST [facility] Department of Thoracic Surgery Inpatient Progress Note Patient Name: Rajan Marquez Patient : 1950 Patient Patient Location: [facility]B Attending Surgeon: PARTH FOSTER ID: Rajan Marquez [...] Visit from 04/30/2022 in Thoracic Surgery at [facility] Weight 71.5 kg (157 lb 11.2 oz) [...] QTC Calculated (Bezet) 492 ms Calculated P Doddridge 106 degrees Calculated R Doddridge 71 degrees Calculated T Doddridge -169 degrees INTERPRETATION Sinus tachycardia Incomplete left [...] Result Value Ref Range Surgical Pathology Report [id number] Location: OR; OR11; A The signing pathologist has (i) examined the relevant preparation(s) for the specimen(s) and (ii) rendered or confirmed the diagnosis(es). . Frozen Section FROZEN SECTION DIAGNOSIS CFS - VISCERAL PLEURAL RIND. 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 of Pathology, [place] [address] Dispatch Supervisor: Maria Ines Marrufo MD, FCAP, [place] Certificate: [id number] This intraoperative consultation should be interpreted as [...] MD Verified: 05/18/2022 11:25 Pathologist Performed at: -[facility] Dept. of Pathology, [place] [address] Dispatch Supervisor: Maria Ines Marrufo MD, FCAP, [place] Certificate: [id number] This intraoperative consultation should be interpreted as [...] Value Ref Range T&S only valid at [facility] Basic Metabolic Panel (non-fasting) Result Value [...] questions please contact the health day care supervisor that requested your imaging first. Electronically signed by: Maryann Magallanes MD, [facility] ([phone]), at 05/18/2022 4:02 PM Assessment: Rajan Marquez [...] PT consulted. Plan: Neuro: Epidural w/ PCEA. CCU NURSE bupropion Card: HDS, CCU NURSE metoprolol, amiodarone (200mg daily) Pulm: IS/cough/deep breathe/OOB/ambulate. Continue left CT to -20 suction, monitor output. CCU NURSE spiriva, albuterol FENGI: LR @100 ml/hr, Regular diet. RBOs Renal/: Matt in place, monitor UOP Heme: SQH ID: SHELLEY Endo: SHELLEY MSK: CCU NURSE hydroxychloroquine for synovitis PPx: scds; SQH, Ambulate 4x a day. OOB. Dispo: full code, floor status Morales Armas MD 05/19/2022 Thoracic Surgery Service Pager [phone] * Morales Armas MD - 05/18/2022 3:27 PM EST [facility] Department of Thoracic Surgery Inpatient Post Op Check Patient Name: Rajan Marquez Patient : 1950 Patient Patient Location: [address] Attending Surgeon: PARTH FOSTER ID: Rajan [...] OfficeVisit from 04/30/2022 in Thoracic Surgery at [facility] Weight 71.5 kg (157 lb 11.2 oz) [...] QTC Calculated (Bezet) 492 ms Calculated P Doddridge 106 degrees Calculated R Doddridge 71 degrees Calculated T Doddridge -169 degrees INTERPRETATION Sinus tachycardia Incomplete left [...] Result Value Ref Range Surgical Pathology Report [id number] Location: OR; OR11; A The signing pathologist has (i) examined the relevant preparation(s) for the specimen(s) and (ii) rendered or confirmed the diagnosis(es). . Frozen Section FROZEN SECTION DIAGNOSIS CFS - VISCERAL PLEURAL RIND. 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 of Pathology, [place] [address] Dispatch Supervisor: Maria Ines Marrufo MD, GILMA, CLSOPHIA Certificate: [id number] This intraoperative consultation should be interpreted as [...] MD Verified: 05/18/2022 11:25 Pathologist Performed at: -[facility] Dept. of Pathology, [place] [address] Dispatch Supervisor: Maria Ines Marrufo MD, GILMA, CLIA Certificate: [id number] This intraoperative consultation should be interpreted as [...] Value Ref Range T&S only valid at [facility] Basic Metabolic Panel (non-fasting) Result Value Ref [...] questions please contact the health day care supervisor that requested your imaging first. Electronically signed by: Maryann Magallanes MD, [facility] ([phone]), at 05/18/2022 4:02 PM Assessment: Rajan Marquez is a 71 y.o. male who is Day of Surgery s/p robotic, converted to open left thoracotomy and total decortication. He is currently in stable condition and recovering well postoperatively.Post op CXR and labs reviewed. Maintain posterior CT strict suction and use a sling when OOB for left arm Plan: Neuro: Epidural w/ PCEA. CCU NURSE bupropion Card: HDS, CCU NURSE metoprolol, amiodarone (200mg daily) Pulm: IS/cough/deep breathe/OOB/ambulate. Continue left CT to -20 suction, monitor output. CCU NURSE spiriva, albuterol FENGI: LR @100 ml/hr, Regular diet. RBOs Renal/: Matt in place, monitor UOP Heme: SQH ID: SHELLEY Endo: SHELLEY MSK: CCU NURSE hydroxychloroquine for synovitis PPx: scds; SQH, Ambulate 4x a day. OOB. Dispo: full code, floor status Vaughn Davis MD 05/18/2022 Thoracic Surgery Service Pager [phone] * Missy Abdi RN - 05/18/2022 2:31 [...] Having coffee 2039 report to [facility] 326 is cleaning When room ready, [...] IR Thoracentesis Left 11/08/2021 Ramírez Ramirez MD [facility] INTERVENTIONL RAD ??? PRO BRONCHOSCOPY, DIAGNOSTIC N/A 03/29/2021 BRONCHOSCOPY, DIAGNOSTIC (WRVU 2.78) performed by Parth Foster MD at [facility] OR ??? PRO BRONCHOSCOPY, DIAGNOSTIC N/A 02/08/2022 BRONCHOSCOPY, DIAGNOSTIC (WRVU 2.78) performed by Parth Foster MD at [facility] OR ? ? PRO INJECTION ANES AGENT &/ STEROID INTERCOSTAL NERVE SINGLE LEVEL Left 03/29/2021 NERVE BLOCK, INTERCOSTAL NERVE (WRVU 1.18) performed by Parth Foster MD at [facility] OR ??? PRO THORACOSCOPY SURG LOBECTOMY Left 03/29/2021 @THORACOSCOPY,SURGICAL,W\LOBECTOMY,TOTAL OR SEGMENTAL (WRVU 24.64) performed by Johana Foster MD at [facility] OR ??? PRO THORACOSCOPY WITH BIOPSY OF PLEURA Left 02/08/2022 THORACOSCOPY; WITH BIOPSY(IES) OF PLEURA (WRVU 4.58) performed by Parth Foster MD at [facility] OR ??? PRO THORACOSCOPY WITH MEDIASTINAL AND REGIONAL LYMPHADENECTOMY 03/29/2021 @THORACOSCOPY, SURG; W/MEDIASTINAL& REGIONAL LYMPHADENECTOMY (WRVU 4.12) performed by Parth Foster MD at [facility] MAIN OR ??? PRO THORACOSCOPY WITH WEDGE RESECTION AND ANATOMIC LUNG RESECTN Left 03/29/2021 @THORACOSCOPY, SURG; W/DX WEDGE RESC W/ANATOMIC LUNG RESC (WRVU 3) performed by Johana Foster MD at [facility] MAIN OR MEDS: No current facility-administered [...] STEVE Sethi 05/18/2022 Thoracic Surgery Service Pager [phone] documented in this encounter Miscellaneous Notes * [...] through: Primary Insurance: [employer] MANAGED MEDICARE Payor: Wish MANAGED MEDICARE / [facility]: [facility] / Product Type: *No Producttype* / Secondary Insurance: N/A Prescription Coverage: Yes This plan was formulated with input from patient and team. All are in agreement with plan. Kenia Sepulveda RN-BSN-CM Pager: [phone] * Plan of Care - Raquel Hoffmann [...] Masimo, Purposeful Rounding, Nurse Knowledge Exchange Raquel Daopito * Plan of Care - Maribell Farias [...] rounding Surveillance [continuous indirect monitoring]: Clarao * Initial Assessments - Kenia Sepulveda RN [...] surrogate would be surrogate decision maker per [place] surrogate decision making law. (Only good for 180 days) Any patient receiving care in [place] must abide by [place] law. The hierarchy for surrogate decision making [...] (i) The agent with financial power of traffic law attorney or a conservator appointed in [...] straight Home Address confirmed as: [place] [address] [facility] [id number] Social & Family Supports: All names listed [...] Specific Information: none Health/Prescription Coverage: Primary Insurance: [facility] MANAGED MEDICARE Payor: AAR MANAGED MEDICARE / Plan: [facility] COM[facility]TE / Product Type: *No Producttype* / Secondary Insurance: N/A ; Prescription Coverage: Yes Preferred Pharmacy: [id number] - [place], [place] - [address] [place] [id number] [place] Status: Patient is a : No Primary Care Provider confirmed: Tami Olivia [phone] Patient/Caregiver Goals of Treatment: discharge home Potential Needs for Transition of Care: home health care Agency Referrals: I have met with the patient to: ?? discuss discharge planning needs. ?? provide the [facility], Office of Care Management letter from the Dispatch Supervisor pertaining to rehabreferrals. ?? provide a letter describing our affiliations within the [facility] and educate about their right to choose where referrals are sent. ?? provide a list of Home Health Agencies / Durable Medical Equipment vendors which serve their preferred geographic area. ?? provided patient with [facility] Star Quality Rating handout. They have requested referrals to: [facility] [address] [place] [phone] Note routed to a College Athlete who will communicate referrals to facilities and [...] of care planning. Kenia Sepulveda RN-BSN-CM Pager: [phone] * Initial Assessments - Messi Dooley, OT [...] IR Thoracentesis Left 11/08/2021 Ramírez Ramirez MD [facility] INTERVENTIONL RAD ??? PRO BRONCHOSCOPY, DIAGNOSTIC N/A 03/29/2021 BRONCHOSCOPY, DIAGNOSTIC (WRVU 2.78) performed by Parth Foster MD at [facility] OR ??? PRO BRONCHOSCOPY, DIAGNOSTIC N/A 02/08/2022 BRONCHOSCOPY, DIAGNOSTIC (WRVU 2.78) performed by Parth Foster MD at [facility] OR ??? PRO BRONCHOSCOPY, DIAGNOSTIC N/A 05/18/2022 BRONCHOSCOPY, DIAGNOSTIC (WRVU 2.53) performed by Parth Foster MD at [facility] OR ??? PRO DECORTICATION, PULMONARY, TOTAL Left 05/18/2022 @THORACOTOMY,DECORTICATION, PULMONARY, TOTAL (WRVU 26.65) performed by Parth Foster MD [facility] OR ? ? PRO INJECTION ANES AGENT &/ STEROID INTERCOSTAL NERVE SINGLE LEVEL Left 03/29/2021 NERVE BLOCK, INTERCOSTAL NERVE (WRVU 1.18) performed by Parth Foster MD at [facility] MAIN OR ??? PRO RECONSTRUCT INJURED CHEST Left 05/18/2022 @MAJOR RECONSTRUCTION, CHEST WALL (WRVU 22.51) performed by Parth Foster MD at [facility] MAIN OR ??? PRO THORACOSCOPY SURG LOBECTOMY Left 03/29/2021 @THORACOSCOPY,SURGICAL,W\LOBECTOMY,TOTAL OR SEGMENTAL (WRVU 24.64) performed by Johana Foster MD at [facility] MAIN OR ??? PRO THORACOSCOPY WITH BIOPSY OF PLEURA Left 02/08/2022 THORACOSCOPY; WITH BIOPSY(IES) OF PLEURA (WRVU 4.58) [facility] ??? PRO THORACOSCOPY WITH MEDIASTINAL AND REGIONAL LYMPHADENECTOMY 03/29/2021 @THORACOSCOPY, SURG; W/MEDIASTINAL& REGIONAL LYMPHADENECTOMY (WRVU 4.12) performed by Parth Foster MD at [facility] MAIN OR ??? PRO THORACOSCOPY WITH WEDGE RESECTION AND ANATOMIC LUNG RESECTN Left 03/29/2021 @THORACOSCOPY, SURG; W/DX WEDGE RESC W/ANATOMIC LUNG RESC (WRVU 3) performed by Johana Foster MD at [facility] MAIN OR Social History: Patient lives [...] ?? WNL / WFL Communication: WFL B [facility] (pt reports hearing aids are no [...] planning. Total Minutes, Occupational Therapy: 40 (Tomi ([id number])) 2017 OT Evaluation Code Rationale: ?? Diagnosis [...] and measurable assessment of functional outcome. Pager: [phone] Messi Dooley OT 05/21/2022 Occupational Therapy Rehabilitation [...] Jose Manuel Salinas RN RN/CM - Cellphone: [phone] Pager: [phone] Covering Service RN/CM * Plan of Care - Mamta Mccullough RN - 05/19/2022 4:19 PM EST OUTCOME EVALUATION NOTE: OUTCOME SUMMARY: VSS BPs soft (250ml Bolus given) on 2L NC-coughing w/ mild PETERSON; denies CP/N/V; pain well managed with epidural -04/20; dressings intact no PROTECTIVE SIGNAL SUPERINTENDENT known air leak; making adeq urine; tolerating [...] managed with epidural -04/20; dressings intact no PROTECTIVE SIGNAL SUPERINTENDENT known air leak; making adeq urine; tolerating [...] Foster MD - 05/18/2022 3:42 PM EST [facility] Operative Note Patient Name: Rajan Marquez : [id number] MR#: [id number] Case Date: 05/18/2022 Surgeon: Surgeon(s) and Role: * Parth Foster MD - Primary * Linda Mustafa PA - Physician Enzyme Chemist * Renu Donald PA - Physician Enzyme Chemist * Morales Armas MD - Resident Preoperative [...] 10: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 [facility] surgical timeout confirmed the patient's identity [...] muscular attachments and divided with the sliding distributing clerk and then excised in pieces with a [...] muscular attachments and divided with the sliding distributing clerk. This maneuverpermitted a [facility] rib derrick barge operator to be placed. The remainder of the [...] sharp dissection and cautery dissection, using the CashSentinelis device for hemostasis. We worked posteriorly until [...] did appear to expand significantly. A 28 Greenlandic chest tube was placed thr ough the camera port and advanced to the apex of the hemithorax and secured. We assessed the defectmade by resection of the fifth and sixth ribs. Because of the concern for scapular trapping, we elected to patch this defect. 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 Left visceral pleural [...] 10:40 AM EST Office Visit Cardiology at [address] [place] [address] Chrissy Zepeda APRN [facility] [place] [address] Scheduled Procedures Name Priority Associated Diagnoses Date/Ti [...] 05/18/2022 10:17 AM EST Reconstruct Injured Chest (71400) 05/18/2022 9:19 AM EST Status post lobectomy of lung MODIFIER RIB RESECTION 05/18/2022 9:19 AM EST Status post lobectomy of lung Bronchoscopy, Diagnostic (90760) 05/18/2022 9:19 AM EST Status post lobectomy of lung Decortication, Pulmonary, Total (55260) 05/18/2022 9:19 AM EST Status post lobectomy [...] questions please contact the health day care supervisor that requested your imaging first. ? Electronically signed by: Savanah Suazo MD, [facility] ([phone]), at 06/11/2022 4:12 PM Narrative 06/11/2022 4:12 [...] have questions please contactthe health day care supervisor that requested your imaging first. Parth Foster [...] questions please contact the health day care supervisor that requested your imaging first. ? Electronically signed by: Marcus Edwards MD, [facility] ([phone]), at 05/24/2022 10:06 AM Narrative 05/24/2022 10:06 [...] have questions please contactthe health day care supervisor that requested your imaging first. Electronically signed by: Marcus Edwards MD, [facility]([phone]), at 05/24/2022 10:06 AM Parth Foster MD [...] questions please contact the health day care supervisor that requested your imaging first. ? Electronically signed by: Marcus Edwards MD, [facility] ([phone]), at 05/24/2022 8:58 AM Narrative 05/24/2022 8:58 [...] have questions please contactthe health day care supervisor that requested your imaging first. Electronically signed by: Marcus Edwards MD, [facility]([phone]), at 05/24/2022 8:58 AM Parth Foster MD IMG DX ORDERABLE S * Differential, Automated (05/24/2022 3:36 AM EDT) Neutrophil % 69.4 % [facility] Neutrophil Absolute 4.63 1.70 - 6.10 x10(3)/[facility] Lymph % 17.4 % [facility] Lymphocytes Abs 1.2 0.9 - 3.2 x10(3)/[facility] Monocyte % 11.1 % [facility] Monocyte Abs 0.7 0.3 - 0.9 x10(3)/[facility] Eos % 1.3 % [facility] Eosinophils Abs 0.1 0.0 - 0.4 x10(3)/[facility] Basophil % 0.7 % [facility] Baso Absolute 0.0 0.0 - 0.1 x10(3)/[facility] Immature Gran % 0.10 % [facility] Comment: Immature granulocytes(IG's)percentage and absolute count will include metamyelocytes, myelocytes, and promyelocytes. Blood smears from CBCs yielding IG's will be scanned manually for concordance. If this scan disagrees with the automated IG or if promyelocytes are noted, a manual differential will be performed. Immature Gran Absolute 0.01 0.00 - 0.04 x10(3)/[facility] Blood 05/24/2022 3:36 AM EDT 05/24/2022 4:02 AM EDT Narrative Resulting Agency Comment Spec In Lab Morales Armas MD HEMATOLOGY ORDERABLE S [facility] [place] [address] * (ABNORMAL) Hemogram (05/24/2022 3:36 AM EDT) White Blood Cell 6.7 4.0 - 9.5 x10(3)/mc L [facility] Red Blood Cell 3.10(L) 4.58 - 5.54 x10(6)/mc L [facility] Hemoglobin 8.1(L) 13.7 - 16.5 g/dL [facility] Hematocrit 25.8(L) 40.5 - 48.5 % [facility] Mean Cell Volume 83.2 82.9 - 93.1 fL [facility] Mean Cell Hemoglobin 26.1(L) 27.5 - 32.1 pg [facility] Mean Cell Hemoglobin Concentration 31.4(L) 32.0 - 35.7 g/dL [facility] Platelet 262 145 - 357 x10(3)/mc L [facility] RDW Standard Deviation 54.4(H) 36.0 - 45.0 fL [facility] RDW coefficient of variation 18.2(H) 11.4 - 13.8 % [facility] Mean Platelet Volume 8.3 7.6 - 12.9 fL [facility] NRBC% auto 0.0 % [facility] NRBC Absolute 0.000 0.000 - 0.000 x10(3)/mc L [facility] Blood 05/24/2022 3:36 AM EDT 05/24/2022 4:02 AM EDT Narrative Resulting Agency Comment Spec In Lab Morales Armas MD HEMATOLOGY ORDERABLE S Performing Organization Address City/State/[facility] Co de Phone Number [facility] [place] [address] * (ABNORMAL) Basic Metabolic Panel (non-fasting) (05/24/2022 3:36 AM EDT) Glucose 99 65 - 199 mg/dL [facility] Comment:Diabetes: >=200 mg/d L plus symptoms Blood Urea Nitrogen 18 10 - 20 mg/dL [facility] Creatinine 0.91 0.80 - 1.50 mg/dL [facility] Sodium 138 135 - 145 mmol/L [facility] Potassium 3.6 3.5 - 5.0 mmol/L [facility] Comment: Please note: ??Patients with WBC >100,000 may have falsely elevated Potassium levels. ??For accurate Potassium quantification in these patients send serum separator tube (gold top) for subsequent determinations. ??Contact the Clinical Chemistry Laboratory if there are any questions. Chloride 104 98 - 107 mmol/L [facility] Carbon Dioxide 25 22 - 31 mmol/L [facility] Anion Gap 9 5 - 15 mmol/L [facility] Calcium 8.3(L) 8.5 - 10.5 mg/dL [facility] Est Glomerular Filtration Rate 90 >=60 mL/min/1. 73 m?? [facility] Comment: This patient's estimated GFR was [...] Lab Parth Foster MD CHEMISTRY ORDERA JOSIE [facility] [place] [address] * XR Chest PA & Lateral (Generic) [...] questions please contact the health day care supervisor that requested your imaging first. ? Electronically signed by: Philip Church MD, [facility] ([phone]), at 05/23/2022 7:33 AM Narrative 05/23/2022 7:33 [...] have questions please contactthe health day care supervisor that requested your imaging first. Parth Foster MD IMG DX ORDERABLE S * Differential, Automated (05/23/2022 3:52 AM EDT) Neutrophil % 69.8 % [facility] Neutrophil Absolute 4.74 1.70 - 6.10 x10(3)/[facility] Lymph % 18.7 % [facility] Lymphocytes Abs 1.3 0.9 - 3.2 x10(3)/[facility] Monocyte % 10.2 % [facility] Monocyte Abs 0.7 0.3 - 0.9 x10(3)/[facility] Eos % 0.6 % [facility] Eosinophils Abs 0.0 0.0 - 0.4 x10(3)/[facility] Basophil % 0.4 % [facility] Baso Absolute 0.0 0.0 - 0.1 x10(3)/[facility] Immature Gran % 0.30 % [facility] Comment: Immature granulocytes(IG's)percentage and absolute count will include metamyelocytes, myelocytes, and promyelocytes. Blood smears from CBCs yielding IG's will be scanned manually for concordance. If this scan disagrees with the automated IG or if promyelocytes are noted, a manual differential will be performed. Immature Gran Absolute 0.02 0.00 - 0.04 x10(3)/[facility] Blood 05/23/2022 3:52 AM EDT 05/23/2022 4:08 AM EDT Narrative Resulting Agency Comment Spec In Lab Morales Armas MD HEMATOLOGY ORDERABLE S [facility] [place] [address] * (ABNORMAL) Hemogram (05/23/2022 3:52 AM EDT) White Blood Cell 6.8 4.0 - 9.5 x10(3)/mc L [facility] Red Blood Cell 3.13(L) 4.58 - 5.54 x10(6)/mc L [facility] Hemoglobin 8.2(L) 13.7 - 16.5 g/dL [facility] Hematocrit 26.5(L) 40.5 - 48.5 % [facility] Mean Cell Volume 84.7 82.9 - 93.1 fL [facility] Mean Cell Hemoglobin 26.2(L) 27.5 - 32.1 pg [facility] Mean Cell Hemoglobin Concentration 30.9(L) 32.0 - 35.7 g/dL [facility] Platelet 256 145 - 357 x10(3)/mc L [facility] RDW Standard Deviation 55.4(H) 36.0 - 45.0 fL [facility] RDW coefficient of variation 17.9(H) 11.4 - 13.8 % [facility] Mean Platelet Volume 8.3 7.6 - 12.9 fL [facility] NRBC% auto 0.0 % [facility] NRBC Absolute 0.000 0.000 - 0.000 x10(3)/mc L [facility] Blood 05/23/2022 3:52 AM EDT 05/23/2022 4:08 AM EDT Narrative Resulting Agency Comment Spec In Lab Morales Armas MD HEMATOLOGY ORDERABLE S [facility] [place] [address] * Basic Metabolic Panel (non-fasting) (05/23/2022 3:52 AM EDT) Glucose 99 65 - 199 mg/dL [facility] Comment:Diabetes: >=200 mg/d L plus symptoms Blood Urea Nitrogen 14 10 - 20 mg/dL [facility] Creatinine 0.94 0.80 - 1.50 mg/dL [facility] Sodium 135 135 - 145 mmol/L [facility] Potassium 3.6 3.5 - 5.0 mmol/L [facility] Comment: Please note: ??Patients with WBC >100,000 may have falsely elevated Potassium levels. ??For accurate Potassium quantification in these patients send serum separator tube (gold top) for subsequent determinations. ??Contact the Clinical Chemistry Laboratory if there are any questions. Chloride 100 98 - 107 mmol/L [facility] Carbon Dioxide 27 22 - 31 mmol/L [facility] Anion Gap 8 5 - 15 mmol/L [facility] Calcium 8.6 8.5 - 10.5 mg/dL [facility] Est Glomerular Filtration Rate 86 >=60 mL/min/1. 73 m?? [facility] Comment: This patient's estimated GFR was [...] In Lab Parth Foster MD CHEMISTRY ORDERA [facility] Performing Organization Address City/State/[facility] Co de Phone Number [facility] [place] [address] * Differential, Automated (05/22/2022 3:47 AM EDT) Neutrophil % 72.4 % [facility] Neutrophil Absolute 5.30 1.70 - 6.10 x10(3)/[facility] Lymph % 15.2 % [facility] Lymphocytes Abs 1.1 0.9 - 3.2 x10(3)/[facility] Monocyte % 11.1 % [facility] Monocyte Abs 0.8 0.3 - 0.9 x10(3)/[facility] Eos % 0.5 % [facility] Eosinophils Abs 0.0 0.0 - 0.4 x10(3)/[facility] Basophil % 0.4 % [facility] Baso Absolute 0.0 0.0 - 0.1 x10(3)/[facility] Immature Gran % 0.40 % [facility] Comment: Immature granulocytes(IG's)percentage and absolute count will include metamyelocytes, myelocytes, and promyelocytes. Blood smears from CBCs yielding IG's will be scanned manually for concordance. If this scan disagrees with the automated IG or if promyelocytes are noted, a manual differential will be performed. Immature Gran Absolute 0.03 0.00 - 0.04 x10(3)/mcL [facility] Blood 05/22/2022 3:47 AM EDT 05/22/2022 4:15 AM EDT Narrative Resulting Agency Comment Spec In Lab Morales Armas MD HEMATOLOGY ORDERABLE S [facility] [place] [address] * (ABNORMAL) Hemogram (05/22/2022 3:47 AM EDT) White Blood Cell 7.3 4.0 - 9.5 x10(3)/mc L [facility] Red Blood Cell 2.93(L) 4.58 - 5.54 x10(6)/mc L [facility] Hemoglobin 7.6(L) 13.7 - 16.5 g/dL [facility] Hematocrit 24.3(L) 40.5 - 48.5 % [facility] Mean Cell Volume 82.9 82.9 - 93.1 fL [facility] Mean Cell Hemoglobin 25.9(L) 27.5 - 32.1 pg [facility] Mean Cell Hemoglobin Concentration 31.3(L) 32.0 - 35.7 g/dL [facility] Platelet 236 145 - 357 x10(3)/mc L [facility] RDW Standard Deviation 53.4(H) 36.0 - 45.0 fL [facility] RDW coefficient of variation 17.5(H) 11.4 - 13.8 % [facility] Mean Platelet Volume 8.6 7.6 - 12.9 fL [facility] NRBC% auto 0.0 % [facility] NRBC Absolute 0.000 0.000 - 0.000 x10(3)/mc L [facility] Blood 05/22/2022 3:47 AM EDT 05/22/2022 4:15 AM EDT Narrative Resulting Agency Comment Spec In Lab Morales Armas MD HEMATOLOGY ORDERABLE S Performing Organization Address [facility] Co de Phone Number [facility] [place] [address] * Basic Metabolic Panel (non-fasting) (05/22/2022 3:47 AM EDT) Glucose 101 65 - 199 mg/dL [facility] Comment:Diabetes: >=200 mg/d L plus symptoms Blood Urea Nitrogen 14 10 - 20 mg/dL [facility] Comment:result rechecked-bm Creatinine 0.90 0.80 - 1.50 mg/dL [facility] Sodium 137 135 - 145 mmol/L [facility] Potassium 3.8 3.5 - 5.0 mmol/L [facility] Comment: Please note: ??Patients with WBC >100,000 may have falsely elevated Potassium levels. ??For accurate Potassium quantification in these patients send serum separator tube (gold top) for subsequent determinations. ??Contact the Clinical Chemistry Laboratory if there are any questions. Chloride 102 98 - 107 mmol/L [facility] Carbon Dioxide 26 22 - 31 mmol/L [facility] Anion Gap 9 5 - 15 mmol/L [facility] Calcium 8.5 8.5 - 10.5 mg/dL [facility] Est Glomerular Filtration Rate 91 >=60 mL/min/1. 73 m?? [facility] Comment: This patient's estimated GFR was [...] MD CHEMISTRY ORDERA BLES Performing Organization Address [facility]/ZIP Co de Phone Number [facility] [place] [address] * EKG 12 Lead (05/21/2022 7:36 AM EDT) Ventricular rate 118 BPM MUSE SYSTEM Atrial Rate 118 BPM MUSE SYSTEM P-R Interval 216 ms MUSE SYSTEM QRS Duration 106 ms MUSE SYSTEM Q-T Interval 324 ms MUSE SYSTEM QTC Calculated (Bezet) 454 ms MUSE SYSTEM Calculated R [place] 82 degrees MUSE SYSTEM Calculated T [place] -102 degrees MUSE SYSTEM INTERPRETATION Sinus tachycardia [...] Differential, Automated (05/21/2022 4:09 AM EDT) Pathologist [facility] Neutrophil % 72.4 % [facility] Neutrophil Absolute 4.83 1.70 - 6.10 x10(3)/[facility] Lymph % 14.5 % [facility] Lymphocytes Abs 1.0 0.9 - 3.2 x10(3)/[facility] Monocyte % 12.3 % [facility] Monocyte Abs 0.8 0.3 - 0.9 x10(3)/[facility] Eos % 0.1 % [facility] Eosinophils Abs 0.0 0.0 - 0.4 x10(3)/[facility] Basophil % 0.4 % [facility] Baso Absolute 0.0 0.0 - 0.1 x10(3)/[facility] Immature Gran % 0.30 % [facility] Comment: Immature granulocytes(IG's)percentage and absolute count will include metamyelocytes, myelocytes, and promyelocytes. Blood smears from CBCs yielding IG's will be scanned manually for concordance. If this scan disagrees with the automated IG or if promyelocytes are noted, a manual differential will be performed. Immature Gran Absolute 0.02 0.00 - 0.04 x10(3)/mcL [facility] Blood 05/21/2022 4:09 AM EDT 05/21/2022 5:00 AM EDT Narrative Resulting Agency Comment Spec In Lab Morales Armas MD HEMATOLOGY ORDERABLE S [facility] [place] [address] * (ABNORMAL) Hemogram (05/21/2022 4:09 AM EDT) White Blood Cell 6.7 4.0 - 9.5 x10(3)/mc L [facility] Red Blood Cell 3.01(L) 4.58 - 5.54 x10(6)/mc L [facility] Hemoglobin 7.9(L) 13.7 - 16.5 g/dL [facility] Hematocrit 25.6(L) 40.5 - 48.5 % [facility] Mean Cell Volume 85.0 82.9 - 93.1 fL [facility] Mean Cell Hemoglobin 26.2(L) 27.5 - 32.1 pg [facility] Mean Cell Hemoglobin Concentration 30.9(L) 32.0 - 35.7 g/dL [facility] Platelet 226 145 - 357 x10(3)/mc L [facility] RDW Standard Deviation 53.6(H) 36.0 - 45.0 fL [facility] RDW coefficient of variation 17.3(H) 11.4 - 13.8 % [facility] Mean Platelet Volume 9.1 7.6 - 12.9 fL [facility] NRBC% auto 0.0 % [facility] NRBC Absolute 0.000 0.000 - 0.000 x10(3)/mc L [facility] Blood 05/21/2022 4:09 AM EDT 05/21/2022 5:00 AM EDT Narrative Resulting Agency Comment Spec In Lab Morales Armas MD HEMATOLOGY ORDERABLE S [facility] [place] [address] * (ABNORMAL) Basic Metabolic Panel (non-fasting) (05/21/2022 4:09 AM EDT) Glucose 84 65 - 199 mg/dL [facility] Comment:Diabetes: >=200 mg/d L plus symptoms Blood Urea Nitrogen 7(L) 10 - 20 mg/dL [facility] Creatinine 0.71(L) 0.80 - 1.50 mg/dL [facility] Sodium 137 135 - 145 mmol/L [facility] Potassium 3.5 3.5 - 5.0 mmol/L [facility] Comment: Please note: ??Patients with WBC >100,000 may have falsely elevated Potassium levels. ??For accurate Potassium quantification in these patients send serum separator tube (gold top) for subsequent determinations. ??Contact the Clinical Chemistry Laboratory if there are any questions. Chloride 103 98 - 107 mmol/L [facility] Carbon Dioxide 27 22 - 31 mmol/L [facility] Anion Gap 7 5 - 15 mmol/L [facility] Calcium 8.7 8.5 - 10.5 mg/dL [facility] Est Glomerular Filtration Rate 97 >=60 mL/min/1. 73 m?? [facility] Comment: This patient's estimated GFR was [...] Lab Parth Foster [place] [address] * Differential, Automated (05/20/2022 4:08 AM EDT) Pathologist [facility] Neutrophil % 74.7 % [facility] Neutrophil Absolute 5.59 1.70 - 6.10 x10(3)/[facility] Lymph % 12.6 % [facility] Lymphocytes Abs 0.9 0.9 - 3.2 x10(3)/[facility] Monocyte % 11.9 % [facility] Monocyte Abs 0.9 0.3 - 0.9 x10(3)/[facility] Eos % 0.0 % [facility] Eosinophils Abs 0.0 0.0 - 0.4 x10(3)/[facility] Basophil % 0.3 % [facility] Baso Absolute 0.0 0.0 - 0.1 x10(3)/[facility] Immature Gran % 0.50 % [facility] Comment: Immature granulocytes(IG's)percentage and absolute count will include metamyelocytes, myelocytes, and promyelocytes. Blood smears from CBCs yielding IG's will be scanned manually for concordance. If this scan disagrees with the automated IG or if promyelocytes are noted, a manual differential will be performed. Immature Gran Absolute 0.04 0.00 - 0.04 x10(3)/[facility] Blood 05/20/2022 4:08 AM EDT 05/20/2022 4:48 AM EDT Narrative Resulting Agency Comment Spec In Lab Morales Armas [place] [address] * (ABNORMAL) Hemogram (05/20/2022 4:08 AM EDT) White Blood Cell 7.5 4.0 - 9.5 x10(3)/mc L [facility] Red Blood Cell 3.07(L) 4.58 - 5.54 x10(6)/mc L [facility] Hemoglobin 8.0(L) 13.7 - 16.5 g/dL [facility] Hematocrit 25.9(L) 40.5 - 48.5 % [facility] Mean Cell Volume 84.4 82.9 - 93.1 fL [facility] Mean Cell Hemoglobin 26.1(L) 27.5 - 32.1 pg [facility] Mean Cell Hemoglobin Concentration 30.9(L) 32.0 - 35.7 g/dL [facility] Platelet 207 145 - 357 x10(3)/mc L [facility] RDW Standard Deviation 53.7(H) 36.0 - 45.0 fL [facility] RDW coefficient of variation 17.4(H) 11.4 - 13.8 % [facility] Mean Platelet Volume 8.7 7.6 - 12.9 fL [facility] NRBC% auto 0.0 % [facility] NRBC Absolute 0.000 0.000 - 0.000 x10(3)/mc L [facility] Blood 05/20/2022 4:08 AM EDT 05/20/2022 4:48 AM EDT Narrative Resulting Agency Comment Spec In Lab Morales Armas MD HEMATOLOGY ORDERABLE S [facility] [place] [address] * (ABNORMAL) Basic Metabolic Panel (non-fasting) (05/20/2022 4:08 AM EDT) Glucose 99 65 - 199 mg/dL [facility] Comment:Diabetes: >=200 mg/d L plus symptoms Blood Urea Nitrogen 11 10 - 20 mg/dL [facility] Creatinine 0.79(L) 0.80 - 1.50 mg/dL [facility] Sodium 133(L) 135 - 145 mmol/L [facility] Potassium 3.8 3.5 - 5.0 mmol/L [facility] Comment: Please note: ??Patients with WBC >100,000 may have falsely elevated Potassium levels. ??For accurate Potassium quantification in these patients send serum separator tube (gold top) for subsequent determinations. ??Contact the Clinical Chemistry Laboratory if there are any questions. Chloride 102 98 - 107 mmol/L [facility] Carbon Dioxide 23 22 - 31 mmol/L [facility] Anion Gap 8 5 - 15 mmol/L [facility] Calcium 8.3(L) 8.5 - 10.5 mg/dL [facility] Est Glomerular Filtration Rate 94 >=60 mL/min/1. 73 m?? [facility] Comment: This patient's estimated GFR was [...] In Lab Parth Foster MD CHEMISTRY ORDERA [facility] Performing Organization Address City/State/[facility] Co de Phone Number [facility] [place] [address] * XR Chest PA & Lateral (Generic) [...] questions please contact the health day care supervisor that requested your imaging first. ? Electronically signed by: Savanah Suazo MD, [facility] ([phone]), at 05/19/2022 11:16 AM Narrative 05/19/2022 11:16 [...] have questions please contactthe health day care supervisor that requested your imaging first. Parth Foster MD IMG DX ORDERABLE S * (ABNORMAL) Differential, Automated (05/19/2022 3:31 AM EST) Neutrophil % 80.9 % [facility] Neutrophil Absolute 8.95(H) 1.70 - 6.10 x10(3)/mc L [facility] Lymph % 9.3 % [facility] Lymphocytes Abs 1.0 0.9 - 3.2 x10(3)/[facility] Monocyte % 9.2 % [facility] Monocyte Abs 1.0(H) 0.3 - 0.9 x10(3)/[facility] Eos % 0.0 % [facility] Eosinophils Abs 0.0 0.0 - 0.4 x10(3)/[facility] Basophil % 0.1 % [facility] Baso Absolute 0.0 0.0 - 0.1 x10(3)/[facility] Immature Gran % 0.50 % [facility] Comment: Immature granulocytes(IG's)percentage and absolute count will include metamyelocytes, myelocytes, and promyelocytes. Blood smears from CBCs yielding IG's will be scanned manually for concordance. If this scan disagrees with the automated IG or if promyelocytes are noted, a manual differential will be performed. Immature Gran Absolute 0.05(H) 0.00 - 0.04 x10(3)/[facility] Blood 05/19/2022 3:31 AM EST 05/19/2022 3:56 AM EST Narrative Resulting Agency Comment Spec In Lab Morales Armas MD HEMATOLOGY ORDERABLE S [facility] [place] [address] * (ABNORMAL) Hemogram (05/19/2022 3:31 AM EST) White Blood Cell 11.1(H) 4.0 - 9.5 x10(3)/ L [facility] Red Blood Cell 3.23(L) 4.58 - 5.54 x10(6)/[facility] Hemoglobin 8.5(L) 13.7 - 16.5 g/dL [facility] Hematocrit 26.8(L) 40.5 - 48.5 % [facility] Mean Cell Volume 83.0 82.9 - 93.1 fL [facility] Mean Cell Hemoglobin 26.3(L) 27.5 - 32.1 pg [facility] Mean Cell Hemoglobin Concentration 31.7(L) 32.0 - 35.7 g/dL [facility] Platelet 245 145 - 357 x10(3)/mc L [facility] RDW Standard Deviation 52.6(H) 36.0 - 45.0 fL [facility] RDW coefficient of variation 17.3(H) 11.4 - 13.8 % [facility] Mean Platelet Volume 8.4 7.6 - 12.9 fL [facility] NRBC% auto 0.0 % [facility] NRBC Absolute 0.000 0.000 - 0.000 x10(3)/mc L [facility] Blood 05/19/2022 3:31 AM EST 05/19/2022 3:56 AM EST Narrative Resulting Agency Comment Spec In Lab Morales Armas MD HEMATOLOGY ORDERABLE S Performing Organization Address City/State/[facility] Co de Phone Number [facility] [place] [address] * Basic Metabolic Panel (non-fasting) (05/19/2022 3:31 AM EST) Glucose 111 65 - 199 mg/dL [facility] Comment:Diabetes: >=200 mg/d L plus symptoms Blood Urea Nitrogen 13 10 - 20 mg/dL [facility] Creatinine 0.93 0.80 - 1.50 mg/dL [facility] Sodium 135 135 - 145 mmol/L [facility] Potassium 4.8 3.5 - 5.0 mmol/L [facility] Comment: Please note: ??Patients with WBC >100,000 may have falsely elevated Potassium levels. ??For accurate Potassium quantification in these patients send serum separator tube (gold top) for subsequent determinations. ??Contact the Clinical Chemistry Laboratory if there are any questions. Chloride 102 98 - 107 mmol/L [facility] Carbon Dioxide 24 22 - 31 mmol/L [facility] Anion Gap 9 5 - 15 mmol/L [facility] Calcium 8.5 8.5 - 10.5 mg/dL [facility] Est Glomerular Filtration Rate 87 >=60 mL/min/1. 73 m?? [facility] Comment: This patient's estimated GFR [...] Lab Parth Foster [place] [address] * XR Chest One View (05/18/2022 4:01 [...] questions please contact the health day care supervisor that requested your imaging first. ? Electronically signed by: Maryann Magallanes MD, [facility] ([phone]), at 05/18/2022 4:02 PM Narrative 05/18/2022 4:02 [...] have questions please contactthe health day care supervisor that requested your imaging first. Parth Foster MD IMG DX ORDERABLE S * (ABNORMAL) Differential, Automated (05/18/2022 2:18 PM EST) Neutrophil % 85.2 % [facility] Neutrophil Absolute 9.74(H) 1.70 - 6.10 x10(3)/mc L [facility] Lymph % 7.3 % [facility] Lymphocytes Abs 0.8(L) 0.9 - 3.2 x10(3)/mc L [facility] Monocyte % 6.8 % [facility] Monocyte Abs 0.8 0.3 - 0.9 x10(3)/mc L [facility] Eos % 0.2 % [facility] Eosinophils Abs 0.0 0.0 - 0.4 x10(3)/mc L [facility] Basophil % 0.2 % [facility] Baso Absolute 0.0 0.0 - 0.1 x10(3)/mc L [facility] Immature Gran % 0.30 % [facility] Comment: Immature granulocytes(IG's)percentage and absolute count will include metamyelocytes, myelocytes, and promyelocytes. Blood smears from CBCs yielding IG's will be scanned manually for concordance. If this scan disagrees with the automated IG or if promyelocytes are noted, a manual differential will be performed. Immature Gran Absolute 0.04 0.00 - 0.04 x10(3)/ L [facility] Blood 05/18/2022 2:18 PM EST 05/18/2022 2:30 PM EST Narrative Resulting Agency Comment Spec In Lab Morales Armas MD HEMATOLOGY ORDERABLE S Performing Organization Address City/State/[facility] Co de Phone Number [facility] [place] [address] * (ABNORMAL) Hemogram (05/18/2022 2:18 PM EST) White Blood Cell 11.4(H) 4.0 - 9.5 x10(3)/mc L [facility] Red Blood Cell 3.19(L) 4.58 - 5.54 x10(6)/ L [facility] Hemoglobin 8.4(L) 13.7 - 16.5 g/dL [facility] Hematocrit 26.5(L) 40.5 - 48.5 % [facility] Mean Cell Volume 83.1 82.9 - 93.1 fL [facility] Mean Cell Hemoglobin 26.3(L) 27.5 - 32.1 pg [facility] Mean Cell Hemoglobin Concentration 31.7(L) 32.0 - 35.7 g/dL [facility] Platelet 289 145 - 357 x10(3)/ L [facility] RDW Standard Deviation 52.3(H) 36.0 - 45.0 fL [facility] RDW coefficient of variation 17.2(H) 11.4 - 13.8 % [facility] Mean Platelet Volume 8.4 7.6 - 12.9 fL [facility] NRBC% auto 0.0 % [facility] NRBC Absolute 0.000 0.000 - 0.000 x10(3)/mc L [facility] Blood 05/18/2022 2:18 PM EST 05/18/2022 2:30 PM EST Narrative Resulting Agency Comment Spec In Lab Morales Armas MD HEMATOLOGY ORDERABLE S [facility] [place] [address] * (ABNORMAL) Basic Metabolic Panel (non-fasting) (05/18/2022 2:18 PM EST) Glucose 117 65 - 199 mg/dL [facility] [facility] Comment:Diabetes: >=200 mg/d L plus symptoms Blood Urea Nitrogen 15 10 - 20 mg/dL [facility] Creatinine 0.96 0.80 - 1.50 mg/dL [facility] Sodium 138 135 - 145 mmol/L [facility] Potassium 4.4 3.5 - 5.0 mmol/L [facility] Comment: Please note: ??Patients with WBC >100,000 may have falsely elevated Potassium levels. ??For accurate Potassium quantification in these patients send serum separator tube (gold top) for subsequent determinations. ??Contact the Clinical Chemistry Laboratory if there are any questions. Chloride 106 98 - 107 mmol/L [facility] Carbon Dioxide 22 22 - 31 mmol/L [facility] Anion Gap 10 5 - 15 mmol/L [facility] Calcium 8.3(L) 8.5 - 10.5 mg/dL [facility] Est Glomerular Filtration Rate 84 >=60 mL/min/1. 73 m?? [facility] Comment: This patient's estimated GFR was [...] MD CHEMISTRY ORDERA BLES Performing Organization Address [facility]/ZIP Co de Phone Number [facility] [place] [address] * Type and Screen Validity (05/18/2022 1:37 PM EST) T&S only valid at [facility] Comment:This Type and Screen result is only valid at the [facility] Blood 05/18/2022 1:37 PM EST 05/18/2022 1:48 PM EST Narrative Resulting Agency Comment Spec In Lab Parth Foster MD BLOOD BANK LAB O RDERABLES Performing Organization Address City/[facility]/ZIP Co de Phone Number [facility] [place] [address] * ABORH Recheck Status (05/18/2022 1:37 PM EST) ABORH Recheck Order Order Placed [facility] ABORH Type Recheck Complete [facility] Blood 05/18/2022 1:37 PM EST 05/18/2022 1:48 PM EST Narrative Resulting Agency Comment Spec In Lab Parth Foster MD BLOOD BANK LAB O RDERABLES Performing Organization Address City/[facility] Co de Phone Number [facility] [place] [address] * Antibody screen (05/18/2022 1:37 PM EST) Ab Screen Interp Negative [facility] Expires at [id number] on: 05/21/2022 [facility] Blood 05/18/2022 1:37 PM EST 05/18/2022 1:48 PM EST Narrative Resulting Agency Comment Spec In Lab Parth Foster MD BLOOD BANK LAB O RDERABLES [facility] [place] [address] * ABO/Rh Typing (05/18/2022 1:37 PM EST) ABORH Type A Pos [facility] Blood 05/18/2022 1:37 PM EST 05/18/2022 1:48 PM EST Narrative Resulting Agency Comment Spec In Lab Parth Foster MD BLOOD BANK LAB O RDERABLES Performing Organization Address City/[facility] Co de Phone Number [facility] [place] [address] * (ABNORMAL) BLOOD GAS 2 ARTERIAL (05/18/2022 12:41 PM EST) pH, Arterial 7.34(L) 7.35 - 7.45 [facility] PCO2, Arterial 42 35 - 45 mmHg [facility] PO2, Arterial 290(H) 85 - 104 mmHg [facility] Bicarbonate, Arterial 22.2 20.0 - 26.0 mmol/L [facility] Base Excess, Arterial -3.5(L) -3.0 - 3.0 mmol/L [facility] Hgb Blood Gas 9.2(L) 13.7 - 16.5 g/dL [facility] Oxyhemoglobin, Arterial 98.5(H) 94.0 - 97.0 % [facility] Carboxyhemoglob in, Arterial 1.2 % [facility] Comment: Nonsmokers: 0.5-1.5% COHB Smokers: Variable, but usually less than 10% Toxic: 20-30% COHB Lethal: Greater than 60% COHB Methemoglobin, Arterial 0.3 <=1.5 % [facility] Na Whole Blood 133(L) 135 - 145 mmol/L [facility] K Whole Blood 4.2 3.5 - 5.0 mmol/L [facility] Comment: Please note: Patients with WBC >100,000 may have falsely elevated Potassium levels. Contact the Clinical Chemistry Laboratory if there are any questions. ICa Whole Blood 1.16 1.15 - 1.33 mmol/L [facility] Comment: Note: ??Total bilirubin higher than 20 mg/dL may lead to falsely low ionized calcium. CL Whole Blood 104 98 - 107 mmol/L [facility] Gluc Whole Bld 130 65 - 199 mg/dL [facility] Comment:Diabetes: >=200 mg/d L plus symptoms. Lactate WB 1.0 0.5 - 2.2 mmol/L [facility] FIO2 Art 50 % [facility] Flow Art 1.0 LPM [facility] PF Ratio Art 580 [facility] Blood 05/18/2022 12:4 1 PM EST 05/18/2022 12:41 PM EST Parth Foster MD POINT OF CARE TE ST ORDERABLES Performing Organization Address [facility] Co de Phone Number [facility] [place] [address] * Specimen to Pathology (05/18/2022 11:21 AM EST) AP Specimen 05/18/2022 11:2 1 AM EST 05/18/2022 11:21 AM EST Narrative [facility] - 05/18/2022 11:21 AM EST Specimen requisition ordered. ??Separate Pathology report to follow Parth Foster MD PATHOLOGY/CYTOLO GY ORDERABLES Performing Organization Address [facility] Co de Phone Number [facility] [place] [address] * Specimen to Pathology (05/18/2022 10:56 AM EST) AP Specimen 05/18/2022 10:5 6 AM EST 05/18/2022 10:56 AM EST Narrative [facility] - 05/18/2022 10:56 AM EST Specimen requisition ordered. ??Separate Pathology report to follow Parth Foster MD PATHOLOGY/CYTOLO GY ORDERABLES Performing Organization Address [facility] Co de Phone Number [facility] [place] [address] * Specimen to Pathology (05/18/2022 10:37 AM EST) AP Specimen 05/18/2022 10:3 7 AM EST 05/18/2022 10:37 AM EST Narrative [facility] - 05/18/2022 10:37 AM EST Specimen requisition ordered. ??Separate Pathology report to follow Parth Foster MD PATHOLOGY/CYTOLO GY ORDERABLES Performing Organization Address [facility] Co de Phone Number [facility] [place] [address] * Specimen to Pathology (05/18/2022 10:36 AM EST) AP Specimen 05/18/2022 10:3 6 AM EST 05/18/2022 10:36 AM EST Narrative [facility] - 05/18/2022 10:36 AM EST Specimen requisition ordered. ??Separate Pathology report to follow Parth Fsoter MD PATHOLOGY/CYTOLO GY ORDERABLES Performing Organization Address [facility] Co de Phone Number [facility] [place] [address] * Specimen to Pathology (05/18/2022 10:36 AM EST) AP Specimen 05/18/2022 10:3 6 AM EST 05/18/2022 10:36 AM EST Narrative [facility] - 05/18/2022 10:36 AM EST Specimen requisition ordered. ??Separate Pathology report to follow Parth Foster MD PATHOLOGY/CYTOLO GY ORDERABLES Performing Organization Address [facility] Co de Phone Number [facility] [place] [address] * Anaerobic Culture (05/18/2022 10:35 AM EST) Anaerobic Culture No anaerobic organisms isolated [facility] Lung 05/18/2022 10:3 5 AM EST 05/18/2022 2:17 PM EST Comment:Left pleural grumous Narrative Resulting Agency Comment Spec In Lab Parth Foster MD MICROBIOLOGY - G ENERAL ORDERABLES Performing Organization Address [facility] Co de Phone Number [facility] [place] [address] * Tissue culture (05/18/2022 10:35 AM EST) Tissue Culture No growth [facility] Gram Stain Few Neutrophils seen No microorganisms seen. [facility] Lung 05/18/2022 10:3 5 AM EST 05/18/2022 2:17 PM EST Comment:Left pleural grumous Narrative Resulting Agency Comment Spec In Lab Parth Foster MD MICROBIOLOGY - G ENERAL ORDERABLES [facility] [place] [address] * Surgical Pathology Report (05/18/2022 10:19 AM EST) Final Diagnosis [id number] ? Location: [id number]; 0326; B The signing [...] Soriano Verified: ??06/04/2022 14:52 ??Pathologist Performed at: ??-[facility] Dept. of Pathology, [place] [address] Dispatch Supervisor: Maria Ines Marrufo MD, AP, ??CLIA Certificate: [id number] SPECIMEN(S) SUBMITTED A - Left pleural rind, [...] tissue is submitted for frozen section: A1. Med Surg Nurse sections in 3 cassettes as follows: ?A1: ??Frozen section remnant ?A2-A3: ??Med Surg Nurse sections B - Labeled/Fixative: Left pleural grumous, fresh. Quantity/Size: Fragments, 7.0 x 5.0 x 1.0 cm in aggregate. Tissue Description: Multiple soft rubbery fragments of white tissue. Sections/Processin g: Med Surg Nurse sections in 2 cassettes labeled B1-B2. C - Labeled/Fixative: Visceral pleural rind. Frozen, fresh for frozen section. Quantity/Size: Single, 2.7 x 1.9 x 0.2 cm. Tissue Description: Serrato-white membranous soft tissue. Sections/Processin g: The following tissue is submitted for frozen section: C1. Med Surg Nurse sections in 2 cassettes as follows: ?C1: ??Frozen section remnant ?C2: ??Med Surg Nurse sections D - Labeled/Fixative: Fragments of rib, fresh. Quantity/Size: Fragments, 9.0 x 9.0 x 2.0 cm in aggregate. Tissue Description: Multiple fragments of rib and surrounding connective tissue. Sections/Processin g: Blocks submitted for decalcification: D1. Med Surg Nurse sections in 1 cassette labeled D1. E - Labeled/Fixative: Left parietal pleural rind, fresh. Quantity/Size: Fragments, 12.5 x 12.5 x 2.0 cm in aggregate. Tissue Description: Multiple fragments of firm rubbery serrato-white tissue with surrounding adipose tissue. Sections/Processin g: Med Surg Nurse sections in 2 cassettes labeled E1-E2. F - Labeled/Fixative: Left visceral pleural rind, fresh. Quantity/Size: Fragments, 9.0 x 5.0 x 2.0 cm in aggregate. Tissue Description: Fragments of firm rubbery serrato-white tissue. Sections/Processin g: Med Surg Nurse sections in 2 cassettes labeled F1-F2. ??jnk ?Frozen Section FROZEN SECTION DIAGNOSIS CFS - VISCERAL PLEURAL RIND. 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 of Pathology, [place] [address] Dispatch Supervisor: Maria Ines Marrufo MD, FCAP, ??CLIA Certificate: [id number] This intraoperative consultation should be interpreted as [...] MD Verified: ??05/18/2022 11:25 ??Pathologist Performed at: ??-[facility] Dept. of Pathology, [place] [address] Dispatch Supervisor: Maria Ines Marrufo MD, FCAP, ??CLIA Certificate: [id number] This intraoperative consultation should be interpreted as a preliminary diagnosis pending review of the entire specimen and special studies, if any. A final Surgical Pathology report will follow this preliminary Frozen Section report(s). 06/04/2022 2:52 PM EDT [facility] Frozen Specimen 05/18/2022 1 0:19 AM [...] EST Parth Foster MD PATHOLOGY/CYTOLO GY ORDERABLES Performing Organization Address City/[facility]/ZIP Co de Phone Number [facility] [address] [place] [address] * Specimen to Pathology (05/18/2022 10:19 AM EST) AP Specimen 05/18/2022 10:1 9 AM EST 05/18/2022 10:19 AM EST Narrative [facility] - 05/18/2022 10:19 AM EST Specimen requisition ordered. ??Separate Pathology report to follow Parth Foster MD PATHOLOGY/CYTOLO GY ORDERABLES [facility] [place] [address] * (ABNORMAL) BLOOD GAS 2 ARTERIAL (05/18/2022 10:17 AM EST) pH, Arterial 7.36 7.35 - 7.45 [facility] PCO2, Arterial 42 35 - 45 mmHg [facility] PO2, Arterial 226(H) 85 - 104 mmHg [facility] Bicarbonate, Arterial 22.9 20.0 - 26.0 mmol/L [facility] Base Excess, Arterial -2.6 -3.0 - 3.0 mmol/L [facility] Hgb Blood Gas 9.5(L) 13.7 - 16.5 g/dL [facility] Oxyhemoglobin, Arterial 98.5(H) 94.0 - 97.0 % [facility] Carboxyhemoglob in, Arterial 1.0 % [facility] Comment: Nonsmokers: 0.5-1.5% COHB Smokers: Variable, but usually less than 10% Toxic: 20-30% COHB Lethal: Greater than 60% COHB Methemoglobin, Arterial 0.3 <=1.5 % [facility] Na Whole Blood 133(L) 135 - 145 mmol/L [facility] K Whole Blood 3.8 3.5 - 5.0 mmol/L [facility] Comment: Please note: Patients with WBC >100,000 may have falsely elevated Potassium levels. Contact the Clinical Chemistry Laboratory if there are any questions. ICa Whole Blood 1.18 1.15 - 1.33 mmol/L [facility] Comment: Note: ??Total bilirubin higher than 20 mg/dL may lead to falsely low ionized calcium. CL Whole Blood 104 98 - 107 mmol/L [facility] Gluc Whole Bld 107 65 - 199 mg/dL [facility] Comment:Diabetes: >=200 mg/d L plus symptoms. Lactate WB 1.5 0.5 - 2.2 mmol/L [facility] Blood 05/18/2022 10:1 7 AM EST 05/18/2022 10:17 AM EST Parth Foster MD POINT OF CARE [facility] ORDERABLES [facility] [place] [address] * XR Fluoro No Rad <1Hr - [...] (Bezet) 492 ms MUSE SYSTEM Calculated P Doddridge 106 degrees MUSE SYSTEM Calculated R Doddridge 71 degrees MUSE SYSTEM Calculated T Doddridge -169 degrees MUSE SYSTEM INTERPRETATION Atrial flutter Non-specific intra-ventricular conduction delay Minimal voltage criteria for LVH, may be normal variant ( [place] product ) Nonspecific ST and T wave abnormality Abnormal ECG When compared with ECG of 21-FEB-2022 06:21, No significant change was found I personally reviewed the tracing and edited the fellows interpretation Confirmed by fellow Rudi Guzmán ([id number]) on 05/21/2022 4:25:34 AM Confirmed by MD RUST SALVATORE ([id number]) on 05/21/2022 10:56:00 AM MUSE SYSTEM 05/18/2022 8:00 AM EST 05/21/2022 10:56 AM EDT Parth Foster MD ECG ORDERABLES MUSE SYSTEM * POCT Glucose (05/18/2022 7:29 AM EST) Glucose, POC 93 65 - 199 mg/dL [facility] Comment: Supplemental ranges: <140 mg/dL before meals <180 mg/dL all other times of the day Blood 05/18/2022 7:29 AM EST 05/18/2022 7:29 AM EST Parth Foster MD POINT OF CARE TE ST ORDERABLES [facility] [place] [address] documented in this encounter Visit Diagnoses Diagnosis [...] on Sat05/18/22 at 1999, Until Discontinued, Routine Given 05/24/2022 12:01 PM [...] Provider: Raquel Hoffmann)1201 (Given - Provider: Deysi Motta, CHRISTINA) AMIOdarone (Paceron) tablet 200 mg [...] Farias RN) 09 (Given - Provider: Deysi Motta RN) metoproloL tartrate (Lopressor) tablet 25 mg 25 mg, Oral, EVERY 12 HOURS SCHEDULED (2 times per day), First dose on Sat05/21/22 at 0915, Until Discontinued, Routine 0938 (Given - Provider: Maribell Farias RN)214 (Given - Provider: Sandro Newton RN) 1013 [...] RN) 1013 (Given - Provider: Maribell Farias RN)213 (Given - Provider: Raquel Hoffmann) 0908 (Given - Provider: Deysi Motta, CHRISTINA) tamsulosin (Flomax) capsule 0.4 mg 0.4 mg, Oral, DAILY, First dose on 05/19/22 at 0900, Until Discontinued, DO NOT CRUSH OR OPEN, Routine 0938 (Given - Provider: Maribell Farias RN) 1014 (Given - Provider: Maribell Farias RN) 0902 (Given - Provider: Deysi Motta, CHRISTINA) tiotropium [...] Unit) documented in this encounter Care Teams Component Inspector Relationship Specialty Start Date End Date Tami Olivia [address] [place] [address] PCP - General Family Medicine 12/30/20 documented as of this encounter
--- OUTSIDE RECORDS SUMMARY | 2023-12-26 15:59 | XMS_ITS | Encounter Summary ---
Author Organization [facility] Address [facility] [place] [address] Care Team Providers Care Dockworker Name Role Phone Tami Olivia Primary Care Provider [phone] Encounter Details Date Type Department Care Team (Latest Contact Info) Description 04/30/2022 1:50 PM EST - 04/30/2022 11:59 PM EST Hospital Encounter Pulmonology at [facility] [place] [phone] Pleural effusion; Squamous cell carcinoma of left [...] 10:40 AM EST Office Visit Cardiology at [address] [phone] Chrissy Zepeda APRN [facility] [place] [address] Scheduled Procedures Name Priority Associated Diagnoses Date/Ti [...] / FVC LLN 62 % COMPAS PFT [id number] Actual Pre-BD 1.42 L/s COMPAS PFT UDS20-04 Pre-BD % of Predicted 64 % COMPAS PFT JXI47-03 Predicted 2.21 L/s COMPAS PFT MFX40-35 Pre-BD Z-Score -0.94 COMPAS PFT DLCO Hb [...] status documented in this encounter Care Teams Dockworker Relationship Specialty Start Date End Date Tami Olivia [address] [place] [address] PCP - General Family Medicine 12/30/20 documented as of this encounter
--- OUTSIDE RECORDS SUMMARY | 2023-12-26 15:59 | XMS_ITS | Encounter Summary ---
Author Organization [facility] Address [facility] [place] [address] Care Team Providers Care Petroleum Products Sales Representative Name Role Phone Tami Olivia Primary Care Provider [phone] Reason for Visit * Reason Comments Follow-up Encounter Details Date Type Department Care Team (Late st Contact Info) Description 04/30/2022 3:00 PM EST Office Visit [place] [address] Gilmer Gutiérrez MD [facility] [place] [address] Primary squamous cell carcinoma of upper lobe [...] the surgeon to operate in small and [id number] places in the chest cavity, and to [...] stay. You may bring your cellphone, and textile technical officer, pajama pants and shirts, under garments, comfy [...] Follow Up Note MD Mendy Fischer PA-C [place] [address] Reason for Visit: Follow up after PFTs [...] Moreland PA-C 04/30/22 Dept of Thoracic Surgery [facility] * Gilmer Gutiérrez MD - 04/30/2022 [...] 10:40 AM EST Office Visit Cardiology at [address] [phone] Chrissy Zepeda, ROUTE SUPERVISOR [facility] [place] [address] Scheduled Procedures Name Priority Associated Diagnoses Date/Ti me CARDIOVERSION-ELECTIVE (WRVU 2) atrial flutter ELECTROPHYSIOLOGY PROCEDURE Persistent atrial fibrillation CARDIOVERSION-ELECTIVE (WRVU 2) persistent atrial fibrillation TRANSESOPHAGEAL ECHOCARDIOGR AM (WRVU 2.3) persistent atrial fibrillation documented as of this encounter Visit Diagnoses Diagnosis 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
--- OUTSIDE RECORDS SUMMARY | 2023-12-26 15:59 | XMS_ITS | Encounter Summary ---
Author Organization [facility] Address [facility] [place] [address] Care Team Providers Care Spa Consultant Name Role Phone Tami Olivia Primary Care Provider [phone] Encounter Details Date Type Department Care Team (Late st Contact Info) Description 04/16/2022 3:45 PM EST Office Visit Thoracic Surgery at [facility] [place] [place] [address] Gilmer Gutiérrez MD [facility] [place] [address] Pleural effusion; Squamous cell carcinoma of left [...] Consultation Note MD Yosef Blanco. ASHLEY Butcher [place] [address] Reason for Visit: Follow up HPI: Rajan [...] Dr. Gutiérrez. STEVE Lenz 04/16/2022 Thoracic Surgery [facility] * Gilmer Gutiérrez MD - 04/16/2022 3:45 [...] AM EST Office Visit Cardiology at [address] [phone] Chrissy Zepeda, MORTEZA [facility] [place] [address] Scheduled Procedures Name Priority Associated Diagnoses Date/Ti [...] / FVC LLN 62 % COMPAS PFT [id number] Actual Pre-BD 1.42 L/s COMPAS PFT [id number] Pre-BD % of Predicted 64 % COMPAS PFT IFK80-87 Predicted 2.21 L/s COMPAS PFT [id number] Pre-BD Z-Score -0.94 COMPAS PFT DLCO Hb [...] status documented in this encounter Care Teams Spa Consultant Relationship Specialty Start Date End Date Kobeapalamar-JacksonRomaTami [address] [place] [address] PCP - General Family Medicine 12/30/20 documented as of this encounter
--- OUTSIDE RECORDS SUMMARY | 2023-12-26 15:59 | XMS_ITS | Encounter Summary ---
Author Organization [facility] Address [facility] [place] [address] Care Team Providers Care Rigging Slinger Name Role Phone Tami Olivia Primary Care Provider [phone] Encounter Details Date Type Department Care Team (Latest Contact Info) Description 04/16/2022 1:30 PM EST Laboratory Appointment Lab [address] [place] [phone] Pleural effusion; Squamous cell carcinoma of left [...] AM EST Office Visit Cardiology at [address] [phone] Chrissy Zepeda APRN [facility] [place] [address] Scheduled Procedures Name Priority Associated Diagnoses Date/Ti [...] 2:10 PM EST) Neutrophil % 70.5 % [facility] Neutrophil Absolute 5.46 1.70 - 6.10 x10(3)/mc L [facility] Lymph % 16.6 % [facility] Lymphocytes Abs 1.3 0.9 - 3.2 x10(3)/mc L [facility] Monocyte % 11.4 % [facility] Monocyte Abs 0.9 0.3 - 0.9 x10(3)/mc L [facility] Eos % 0.1 % [facility] Eosinophils Abs 0.0 0.0 - 0.4 x10(3)/mc L [facility] Basophil % 0.6 % [facility] Baso Absolute 0.0 0.0 - 0.1 x10(3)/mc L [facility] Immature Gran % 0.80 % [facility] Comment: Immature granulocytes(IG's)percentage and absolute count will include metamyelocytes, myelocytes, and promyelocytes. Blood smears from CBCs yielding IG's will be scanned manually for concordance. If this scan disagrees with the automated IG or if promyelocytes are noted, a manual differential will be performed. Immature Gran Absolute 0.06(H) 0.00 - 0.04 x10(3)/mc L [facility] Blood 04/16/2022 2:10 PM EST 04/16/2022 2:21 PM EST Narrative Resulting Agency Comment Spec In Lab Gilmer Gutiérrez MD HEMATOLOGY ORDER PHILOMENA [facility] [place] [address] * (ABNORMAL) Hemogram (04/16/2022 2:10 PM EST) White Blood Cell 7.8 4.0 - 9.5 x10(3)/mc L [facility] Red Blood Cell 4.54(L) 4.58 - 5.54 x10(6)/mc L [facility] Hemoglobin 11.5(L) 13.7 - 16.5 g/dL [facility] Hematocrit 36.9(L) 40.5 - 48.5 % [facility] Mean Cell Volume 81.3(L) 82.9 - 93.1 fL [facility] Mean Cell Hemoglobin 25.3(L) 27.5 - 32.1 pg [facility] Mean Cell Hemoglobin Concentration 31.2(L) 32.0 - 35.7 g/dL [facility] Platelet 364(H) 145 - 357 x10(3)/mc L [facility] RDW Standard Deviation 48.6(H) 36.0 - 45.0 fL [facility] RDW coefficient of variation 16.6(H) 11.4 - 13.8 % [facility] Mean Platelet Volume 8.6 7.6 - 12.9 fL [facility] NRBC% auto 0.0 % [facility] NRBC Absolute 0.000 0.000 - 0.000 x10(3)/ L [facility] Blood 04/16/2022 2:10 PM EST 04/16/2022 2:21 PM EST Narrative Resulting Agency Comment Spec In Lab Gilmer Gutiérrez MD HEMATOLOGY ORDER PHILOMENA [facility] [place] [address] * (ABNORMAL) Comprehensive metabolic panel (non-fasting) (04/16/2022 2:10 PM EST) Glucose 98 65 - 199 mg/dL [facility] Comment:Diabetes: >=200 mg/d L plus symptoms Blood Urea Nitrogen 19 10 - 20 mg/dL [facility] Creatinine 1.20 0.80 - 1.50 mg/dL [facility] Sodium 135 135 - 145 mmol/L [facility] Potassium 4.8 3.5 - 5.0 mmol/L [facility] Comment: Please note: ??Patients with WBC >100,000 may have falsely elevated Potassium levels. ??For accurate Potassium quantification in these patients send serum separator tube (gold top) for subsequent determinations. ??Contact the Clinical Chemistry Laboratory if there are any questions. Chloride 97(L) 98 - 107 mmol/L [facility] Carbon Dioxide 25 22 - 31 mmol/L [facility] Anion Gap 13 5 - 15 mmol/L [facility] Calcium 10.7(H) 8.5 - 10.5 mg/dL [facility] Protein, Total 7.3 6.1 - 8.0 g/dL [facility] Albumin 3.8 3.2 - 5.2 g/dL [facility] Aspartate Aminotransferase 11 0 - 39 unit/L [facility] Alanine Aminotransferase 13 0 - 55 unit/L [facility] Alkaline Phosphatase 202(H) 40 - 130 unit/L [facility] Bilirubin, Total 0.5 0.2 - 1.3 mg/dL [facility] Est Glomerular Filtration Rate 64 >=60 mL/min/1. 73 m?? [facility] Comment: This patient's estimated GFR [...] Lab Gilmer Gutiérrez MD CHEMISTRY ORDERA JOS[facility] Organization Address City/State/ZIP Co de Phone Number [facility] [place] [address] documented in this encounter Visit Diagnoses Diagnosis Pleural effusion Unspecified pleural effusion 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 Other postprocedural status documented in this encounter Care Teams Rigging Slinger Relationship Specialty Start Date End Date Tami Olivia [address] [place] [address] PCP - General Family Medicine 12/30/20 documented as of this encounter
--- OUTSIDE RECORDS SUMMARY | 2023-12-26 15:59 | XMS_ITS | Encounter Summary ---
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 Procedures PRO THORACOSCOPY SURG TOT PULM DECORT @ROBOT XI THORACOSCOPY,SURG; W TOTAL DECORTICATION (WRVU 29.13) Gilmer Gutiérrez MD [facility] [place] [address] [facility] Referral ID Status Reason Start Date Expiration Date Visits Re quested Visits Authorized [id number] 1 1 Encounter Details Date Type Department Care Team (Late st Contact Info) Description 05/18/2022 9:21 AM EST Anesthesia Event [place] [address] Mary Wagoner MD [facility] DR ANEST[place] [address] Jakob Dickerson DO [facility] DR [place] [address] Anesthesia Record Procedure Summary Procedure Name Responsible [...] and Airways Type Details Placement Removal Incision 02/08/22; 1240; Left ; chest; laparoscopic puncture; LDA not present upon assessment; 05/22/22; 0700 02/08/22 1240 by Judie Carrasco RN 05/22/22 0700 by Maribell Farias RN (RETIRED) Peripheral IV Line - Single Lumen 05/18/22; 0733; median cubital vein (antecubital fossa), right; [id number] catheter system; Anatomical Landmarks; 22 gauge; Beth [...] dorsal arch vein (top of hand), left; [id number]-[id number] catheter system; Anatomical Landmarks; 16 gauge; nickie; 05/24/22; 1457 05/18/22 0936 by Sloan Rosa MD 05/24/22 1457 by Cori Motta RN Incision 05/18/22; 1000; Left ; back; transverse; 12/15/23; 1710 05/18/22 1000 by Sanket Murphy RN 12/15/23 1710 by Ewa Palencia RN Chest Tube 05/18/22; 1318; Left ; 28Fr straight; 12/15/23; 1710 05/18/22 1318 by Sanket Murphy RN 12/15/23 1710 by Ewa Palencia RN documented in this encounter Social History [...] Procedure Summary Date: 05/18/22 Room / Location: [address] MAIN OR Anesthesia Start: 920 Anesthesia Stop: 1407 Procedures: @THORACOTOMY,DECORTICATION, PULMONARY, TOTAL (WRVU 26.65) (Left: Chest) BRONCHOSCOPY, DIAGNOSTIC (WRVU 2.53) MODIFIER RIB RESECTION (Left) @MAJOR RECONSTRUCTION, CHEST WALL (WRVU 22.51) (Left: Chest) Diagnosis: Status post lobectomy of lung (fibrothorax) Surgeons: Gilmer Gutiérrez MD Responsible Provider: Mary Wagoner MD Anesthesia Type: general ASA Status: 3 All Anesthesia Providers: Anesthesiologist: Mary Wagoner MD Communications Professional: Sloan Rosa MD Vitals Value Taken Time BP Temp Pulse Resp SpO2 Pain Level Patient Location: PACU/[facility] Level of Consciousness: Awake and Alert [...] End time: 05/18/2022 9:19 AM Baseline Information ([id number] entry for database use): HTN: Yes Patient [...] obtained. Patient was transported to [facility] OR formerly [facility] procedure by vice president integrated in stable condition. Qc Lab Technician (Caleb) I was present for the entire procedure. PA and Lateral dye study confirmed correct epidural location. Resident/BRACE MAKER: Second Resident/BRACE MAKER: SRNA: Fellow: Belkis Rosenberg MD Attending Physician: Karri Ellis MD ~~~~~~~~~~~~~~~~~~~~~~~~~~~~~~~~~~~~~~~~~~~~~~~~~~~~~~~~~~~~ * Anesthesia Preprocedure Evaluation - Sloan Rosa MD - 05/17/2022 6:26 PM EST Pre-Anesthesia Evaluation for: Rajan Marquez a 71 y.o. male. Procedure(s): @ROBOT XI THORACOSCOPY,SURG; W TOTAL DECORTICATION (WRVU 29.13) MODIFIER ROBOT,TAMIAI XI Patient Active Problem List Diagnosis Date [...] IR Thoracentesis Left 11/08/2021 Ramírez Ramirez MD [facility] INTERVENTIONL RAD ??? PRO BRONCHOSCOPY, DIAGNOSTIC N/A 03/29/2021 BRONCHOSCOPY, DIAGNOSTIC (WRVU 2.78) performed by Gilmer Gutiérrez MD at [facility] OR ??? PRO BRONCHOSCOPY, DIAGNOSTIC N/A 02/08/2022 BRONCHOSCOPY, DIAGNOSTIC (WRVU 2.78) performed by Gilmer Gutiérrez MD at [facility] OR ? ? PRO [...] by Gilmer Gutiérrez MD at [facility] OR ??? PRO THORACOSCOPY WITH MEDIASTINAL AND REGIONAL LYMPHADENECTOMY 03/29/2021 @THORACOSCOPY, SURG; W/MEDIASTINAL& REGIONAL LYMPHADENECTOMY (WRVU 4.12) performed by Gilmer Gutiérrez MD at [facility] MAIN OR ??? PRO THORACOSCOPY WITH WEDGE RESECTION AND ANATOMIC LUNG RESECTN Left 03/29/2021 @THORACOSCOPY, SURG; W/DX WEDGE RESC W/ANATOMIC LUNG RESC (WRVU 3) performed by Johana Gutiérrez MD at [facility] MAIN OR Social History Tobacco Use [...] Physical Exam: Preprocedure Vitals Current as of 05/17/22 1826 No BP, pulse, respiration, SpO2, or temperature recorded. Height: Weight: BMI: IBW: Airway Assessment: Mallampati: II TM distance: >3 FB Neck ROM: full Cardiovascular Assessment: Rhythm: irregular system normal Pulmonary Assessment: unlabored breathing Dental Assessment: Misc Assessment: IV access: Peripheral line Last Filed Perioperative Cognitive Screening Value Time User 4AT TOTAL Score: 0 03/29/2021 8:00 PM Vanessa Salcedo, RN Anesthesia Plan: ASA 3 general, with [...] Meds edited * Addendum Note - Dorys Sampsno - 05/18/2022 4:34 PM EST Addendum created 05/18/22 1634 by Dorys Sampson MD Order list changed documented in this encounter Plan of Treatment Upcoming Encounters Date Type Department Care Team (Late st Contact Info) Description 01/20/2024 10:40 AM EST Office Visit Cardiology at [address] [phone] Chrissy Zepeda APRN [facility] [place] [address] Scheduled Procedures Name Priority Associated Diagnoses Date/Ti me CARDIOVERSION-ELECTIVE (WRVU 2) atrial flutter ELECTROPHYSIOLOGY PROCEDURE Persistent atrial fibrillation CARDIOVERSION-ELECTIVE (WRVU 2) persistent atrial fibrillation TRANSESOPHAGEAL ECHOCARDIOGR AM (WRVU 2.3) persistent atrial fibrillation documented as of this encounter Procedures Procedure Name Priority Date/Time Associated Diagnosis Comments [id number] ONLY Routine 05/18/2022 8:43 AM EST documented in this encounter Results * [id number] ONLY (05/18/2022 8:43 AM EST) Narrative Sites, [...] End time: 05/18/2022 9:19 AM Baseline Information ([id number] entry for database use): HTN: ??Yes Patient [...] to neighboring OR for their procedure by vice president integrated in stable condition. Qc Lab Technician (Caleb) I was present for the entire procedure. PA and Lateral dye study confirmed correct epidural location. ?? Resident/BRACE MAKER: ? Second Resident/BRACE MAKER: SRNA: ? Fellow: ?Belkis Rosenberg MD Attending Physician: ? Caleb, Karri Sharp MD ~~~~~~~~~~~~~~~~~~~~~~~~~~~~~~~~~~~~~~~~~~~~~~~~~~~~~~~~~~~~ Karri Ellis MD [employer] [facility] documented in this encounter Visit Diagnoses Not on filedocumented in this encounter Administered Medications Inactive Administered Medications - up to 3 most recent administrations Medication Order MAR Action Action Date Dose Rate Site ceFAZolin (Ancef) 2 g vial attach to sodium chloride 0.9% 100 mL Mini-Bag Plus 2 g, Intravenous, STRIP POLISHER TO O.R., 1 dose, On Sat05/18/22 at [...] Units documented in this encounter Care Teams Hydraulic Mechanic Relationship Specialty Start Date End Date Tami Olivia [address] [place] [address] PCP - General Family Medicine 12/30/20 documented as of this encounter
--- OUTSIDE RECORDS SUMMARY | 2023-12-26 15:59 | XMS_ITS | Encounter Summary ---
Author Organization [facility] [place] [address] Care Team Providers Care Tours Captain Name Role Phone Tami Olivia Primary Care Provider [phone] Encounter Details Date Type Department Care Team [...] 10:40 AM EST Office Visit Cardiology at [address] [phone] Chrissy Zepeda APRN [facility] [place] [address] Scheduled Procedures Name Priority Associated Diagnoses Date/Ti me CARDIOVERSION-ELECTIVE (WRVU 2) atrial flutter ELECTROPHYSIOLOGY PROCEDURE Persistent atrial fibrillation CARDIOVERSION-ELECTIVE (WRVU 2) persistent atrial fibrillation TRANSESOPHAGEAL ECHOCARDIOGR AM (WRVU 2.3) persistent atrial fibrillation documented as of this encounter Visit Diagnoses Not on filedocumented in this encounter Care Teams Tours Captain Relationship Specialty Start Date End Date Tami Olivia [address] [place] [address] PCP - General Family Medicine 12/30/20 documented as of this encounter
--- OUTSIDE RECORDS SUMMARY | 2023-12-26 16:00 | XMS_ITS | Encounter Summary ---
Author Organization [facility] Address [facility] [place] [address] Care Team Providers Care Wing Coverer Name Role Phone Tami Olivia Primary Care Provider [phone] Reason for Visit * Auth/Cert (Routine) Specialty Diagnoses / Procedures Referred By Bert t Referred To Contact Diagnoses Pleural effusion, not elsewhere classified Malignant neoplasm of unspecified part of left bronchus or lung pleural effusion Procedures PRO THORACOSCOPY WITH BIOPSY OF PLEURA PRO BRONCHOSCOPY, DIAGNOSTIC THORACOSCOPY; WITH BIOPSY(IES) OF PLEURA (WRVU 4.58) BRONCHOSCOPY, DIAGNOSTIC (WRVU 2.78) Gilmer Foster MD [facility] [place] [address] [facility] Referral ID Status Reason Start Date Expiration Date Visits Re quested Visits Authorized [id number] 1 1 Encounter Details Date Type Department Care Team (Late st Contact Info) Description 02/08/2022 12:15 PM EST - 02/08/2022 3:16 PM EST Surgery [place] [address] Gilmer Foster MD [facility] [place] [address] THORACOSCOPY; WITH BIOPSY(IES) OF PLEURA (WRVU 4.58) [...] Hospital Course: Rajan Marquez was admitted to [facility] on 02/08/2022 via the SD. [...] questions please contact the health personal care worker that requested your imaging first. Electronically signed by: Jose Aaron MD, [facility] ([phone]), at 02/08/2022 2:57 PM XR Chest PA & Lateral (Generic) (Exam End: 02/10/2022 5:23 AM) Impression Enlarging left hydropneumothorax. Thank you for letting us participate in the care of this patient. If you are a health care provider and have any questions regarding this report, please contact the number below. For patients who have questions please contact the health personal care worker that requested your imaging first. Electronically signed by: Maryann Magallanes MD, [facility] ([phone]), at 02/10/2022 8:05 AM Pending Studies and [...] a nurse in the Thoracic Clinic at [phone]. After hours or on weekends or holidays please call: [phone] and ask to speak to the Thoracic [...] please call the thoracic surgery clinic at [phone]. Driving: No driving for 1 week or [...] the Thoracic Clinic or the Thoracic Surgeon rangelands conservation laborer after hours. Please take over the counter [...] our office if you have any questions. [phone] Future Appointments Date Time Provider Department Center 02/10/2022 5:00 AM [facility] DX ROOM 9 Xray [facility] Rad General Instructions Keep the Express Mini in an upright position and make sure the tubing stays firmly attached to the end of your chest tube. If it becomes disconnected you will need to reconnect it immediately and tape it securely. If you cannot get it reconnected you will need to go to the Emergency Room at [facility] immediately. Be sure to not [...] contact the Thoracic Surgery office promptly at [phone]. Opioid PDMP 02/13/2021 [place] PDMP Query Date [...] Expires XR Chest PA & Lateral (Generic) [[id number] Custom] 02/23/2022 08/25/2022 Process Instructions: Scheduling Instructions: Questions: Reason for exam and clinical history: s/p left VATS pleural biopsy Clinical information / bryan questions for radiologist: ?interval change Where will study be performed?: [facility] Radiology Portable exam?: Stat read required?: Date of injury if applicable: Requested Time: XR Chest PA & Lateral (Generic) [[id number] Custom] 02/24/2022 (Approximate) 08/26/2022 Process Instructions: Scheduling Instructions: Questions: Reason for exam and clinical history: s/p left vats pleural biopsy Clinical information / bryan questions for radiologist: eval for ptx and or effusion Where will study be performed?: [facility] Radiology Portable exam?: Stat read required?: Date of injury if applicable: Requested Time: Referral to Home Health [REF34 Custom] As directed Process Instructions: If no progress note charted, please enter Clinical details in comments. Scheduling Instructions: Comments: Please evaluate Rajan Marquez for admission to Home Health. 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 Check the Atrium Express [...] your scheduled appointment. HOME HEALTH CARE AGENCY: [facility]. [address] [facility] [address] PHONE: [phone] FAX: [phone] Start of care: within 24 to 48 hours of discharge Please note that any additional orders needs or changes will need to be obtained from this patient's PCP: Tami ALTMAN [address] / [place] [id number] All VNA agencies which cover the area of patient's residence have been reviewed, either verbally crow writing, and patient/family have chosen the home health care agency noted Questions: Disciplines Requested: Nursing Provider Contact Information: Primary Care Provider: Tami Olivia [phone] Discharge References/Attachments: Discharge References/Attachments None For questions regarding this document or issues relating to this hospitalization on the Thoracic Surgery Service, please contact Dr. Foster's office at . Signed: STEVE Black 02/10/2022 Thoracic Surgery [facility] CC: PCP: Tami Olivia Referring: Tami Olivia [address] [place] [address] documented in this encounter Discharge Instructions * [...] to go to the Emergency Room at [facility] immediately. Be sure to not [...] contact the Thoracic Surgery office promptly at [phone]. * Patient Instructions* Camilo Stevenson PA - 02/09/2022 11:12 AM EST Call if you have a fever of greater than 101 degrees, shaking chills, develop redness or drainage from your incision site(s), or if you have questions. During normal business hours, Saturday- Saturday 8:00 a.m.-5:00 p.m., please call to speak to a nurse in the Thoracic Clinic at [phone]. After hours or on weekends or holidays please call: [phone] and ask to speak to the Thoracic [...] please call the thoracic surgery clinic at [phone]. Driving: No driving for 1 week or [...] the Thoracic Clinic or the Thoracic Surgeon rangelands conservation laborer after hours. Please take over the counter [...] our office if you have any questions. [phone] Future Appointments Date Time Provider Department Center 02/10/2022 5:00 AM [facility] DX ROOM 9 Xray [facility] Rad documented in this encounter Medications at Time of Discharge Medication Sig Dispensed Refills Start Date End Date tamsulosin (Flomax) 0.4 mg Capsule Take 0.4 mg by mouth daily. hydrOXYchloroQUINE (Plaquenil) 200 mg Tablet Take 200 mg by mouth Daily. 04/04/2018 cholecalciferol, Vitamin D3, (Vitamin D3) 1,000 unit Tablet Take 1 tablet by mouth daily. 11/01/2014 bupropion HCl (WELLBUTRIN ORAL) Take 150 mg by mouth daily. 12/16/2023 albuterol sulfate (Proair Digihaler) 90 mcg/actuation aero powdr breath act w/sensor 4 times daily as needed. 12/16/2023 Spiriva Respimat 2.5 mcg/actuation Mist 01/26/2022 acetaminophen (Tylenol) 500 mg Tablet Take 2 tablets by mouth every 6 hours. 30 tablet 1 02/10/2022 12/16/2023 docusate sodium (Colace) 100 mg Capsule Take [...] NEEDED. MAXIMUM DAILY DOSE 2 10/09/2021 12/12/2023 lisinopriL (Zestril) 10 mg Tablet Take 10 mg by mouth daily. 02/21/2022 UNABLE TO FIND Cbd gummies to help with smoking cessation. 12/12/2023 omeprazole (PriLOSEC) 20 mg Capsule, Delayed Release(E.C.) Take 20 mg by mouth daily. 03/12/2018 05/17/2022 fluticasone furoate-vilanteroL (Breo Ellipta) 200-25 mcg/dose Disk with Device Inhale 1 puff into the lungs Daily. 02/17/2022 documented as of this encounter Progress Notes * Malia Paredes RN - 02/10/2022 1:16 PM EST [facility] Short Stay Unit Discharge Note All [...] - 02/09/2022 11:04 AM EST Report from [facility]. Arrived to room. CT to water seal with small, known, intermittent air leak. CT dressing with scant sanguineous drainage, L back dsg c/d/i. Oriented to room and placed on monitoring system. Awaiting lunch meal. [facility]. * Bi Baez MD - 02/09/2022 8:53 AM EST [facility] Department of Thoracic Surgery Inpatient Progress Note Patient Name: Rajan Marquez Patient : 1950 Patient Patient Location: [facility]- Attending Surgeon: GILMER FOSTER ID: Rajan Mica Marquez is a 71 y.o. male who [...] Admission (Current) from 02/08/2022 in PACU at [facility] OfficeVisit from 01/29/2022 in Thoracic Surgery at [facility] Weight 75.8 kg (167 lb) 1 02/08/2022 [...] Result Value Ref Range Surgical Pathology Report [id number] Location: OR; OR22; A The signing pathologist has (i) examined the relevant preparation(s) for the specimen(s) and (ii) rendered or confirmed the diagnosis(es). . Frozen Section FROZEN SECTION DIAGNOSIS AFS - Left pleural biopsy, for frozen section (2 blocks): Atypical cells, cannot exclude malignancy, defer to permanent. 02/08/22 13:26 Electronically signed by: Malia Lacy MD Verified: 02/08/2022 13:50 Pathologist Performed at: -[facility] Dept. of Pathology, [place] [address] Rn Family: Maria Ines Marrufo MD, FCAP, CLIA Certificate: [id number] This intraoperative consultation should be interpreted as [...] questions please contact the health personal care worker that requested your imaging first. Electronically signed by: Jose Aaron MD, [facility] ([phone]), at 02/08/2022 2:57 PM Micro: Procedure Component Value Units Date/Time Fungus culture Pleural Fluid [[id number]] Collected: 02/08/22 1254 Lab Status: Preliminary result Specimen: Pleural Fluid Updated: 02/09/22 08 Fungus Culture No Fungus isolated to date Body Fluid Culture, Aerobic & Anaerobic Pleural Fluid [[id number]] Collected: 02/08/221253 Lab Status: Preliminary result Specimen: Pleural Fluid Updated: 02/09/22742 Body Fluid Culture, Aerobic [[id number]] Collected: 02/08/221253 Lab Status: Preliminary result Specimen: [...] Baez MD 02/09/2022 Thoracic Surgery Service Pager [phone] * Debbie Pride RN - 02/09/2022 8:44 [...] dressing is CDI. 0700: Report given to SYSTEMS AUDITORDebbie VASQUEZ. Care assumed. * Juanita Sotomayor RN [...] IR Thoracentesis Left 11/08/2021 Ramírez Ramirez MD [facility] INTERVENTIONL RAD ??? PRO BRONCHOSCOPY, DIAGNOSTIC N/A 03/29/2021 BRONCHOSCOPY, DIAGNOSTIC (WRVU 2.78) performed by Gilmer Foster MD at [facility] MAIN OR ? ? PRO INJECTION ANES AGENT &/ STEROID INTERCOSTAL NERVE SINGLE LEVEL Left 03/29/2021 NERVE BLOCK, INTERCOSTAL NERVE (WRVU 1.18) performed by Gilmer Foster MD at [facility] OR ??? PRO THORACOSCOPY SURG LOBECTOMY Left 03/29/2021 @THORACOSCOPY,SURGICAL,W\LOBECTOMY,TOTAL OR SEGMENTAL (WRVU 24.64) performed by Johana Foster MD at [facility] OR ??? PRO THORACOSCOPY WITH MEDIASTINAL AND REGIONAL LYMPHADENECTOMY 03/29/2021 @THORACOSCOPY, SURG; W/MEDIASTINAL& REGIONAL LYMPHADENECTOMY (WRVU 4.12) performed by Gilmer Foster MD at [facility] OR ??? PRO THORACOSCOPY WITH WEDGE RESECTION AND ANATOMIC LUNG RESECTN Left 03/29/2021 @THORACOSCOPY, SURG; W/DX WEDGE RESC W/ANATOMIC LUNG RESC (WRVU 3) performed by Johana Foster MD at [facility] OR MEDS: No current facility-administered medications [...] Nieto MD 02/08/2022 Thoracic Surgery Service Pager [phone] documented in this encounter Miscellaneous Notes * [...] information for follow-up Home [facility] H[facility], [place] [address] [place] [address] Transportation: family or friend will provide Wheelchair van/Ambulance? No Functional status prior to admission: Independent Home Environment: Others in the home: significant other. Current Living Arrangements: home/apartment/condo. Accessibility Concerns:none noted. Current Functional Ability: DME used at home: none DME Needed at Discharge: Mini atrium Patient is insured through: Primary Insurance: [employer] MANAGED MEDICARE Payor: [employer] MANAGED MEDICARE / Plan: AAR HMO MANAGED MEDICARE COMPLETE / Product Type: *No Producttype* / Secondary Insurance: N/A Prescription Coverage: Yes This plan was formulated with input from patient, and team. All are in agreement with plan. Natanael Sims RN, BSN Case Management [phone] * Care Management - Melania Salinas RN - 02/09/2022 2:26 PM EST RN/CM has reviewed with provider team. Admit: 02/08/2022 with anticipated discharge: 02/10/2022. Pt remains OBS status at this time. Pending UM review later today. Christie Salinas RN (Jonas) RN/CM - Cellphone: [phone] Pager: [phone] Covering Service RN/LACEY * Initial Assessments - [...] surrogate would be surrogate decision maker per [place] surrogate decision making law. (Only good for 180 days) Any patient receiving care in [place] must abide by [place] law. The hierarchy for surrogate decision making [...] (i) The agent with financial power of contract attorney or a conservator appointed in accordance [...] DME: none Home Address confirmed as: [address] [place] [address] Social & Family Supports: All names listed [...] points: Addiction likely Health/Prescription Coverage: Primary Insurance: [facility] MANAGED MEDICARE Payor: [facility] MANAGED MEDICARE / Plan: [facility] COM[facility]TE / Product Type: *No Producttype* / Secondary Insurance: N/A ; Prescription Coverage: Yes Preferred Pharmacy: [facility] - [place], [place] - [address] [place] [id number] Status: Patient is a : No Primary Care Provider listed: Tami BullockjaylamarKarlee [phone] Patient/Caregiver Goals of Treatment: Return home with [...] are placed. Patient requests referral to : [facility] [place] [address] PHONE: [phone] FAX: [phone] Expected date of discharge: 02/09/2022 vs 02/10/2022 Referral routed to the Business Development Sales Executive for matching with agency/vendor and to provide [...] planningCecilia Salinas RN (Jonas) RN/CM - Cellphone: [phone] Pager: [phone] Covering Service RN/CM * Op Note - Gilmer Foster MD - 02/08/2022 12:40 PM EST [facility] Operative Note Patient Name: Rajan Marquez : [id number] MR#: [id number] Case Date: 02/08/2022 Surgeon: Surgeon(s) and Role: [...] tissue samples (in container) 1 Drains: 28 Ghanaian chest tube, left Surgical Closure: Primary Closure [...] copiously with warm normal saline. A 28 Ghanaian chest tube was placed through the anterior [...] 10:40 AM EST Office Visit Cardiology at [address] [address] Chrissy Zepeda APRN [facility] [place] [address] Scheduled Procedures Name Priority Associated Diagnoses Date/Ti [...] TO PATHOLOGY Routine 02/08/2022 1:15 PM EST NON-TEACHER MUSIC FINAL REPORT Routine 02/08/2022 1:10 PM EST [...] Routine 02/08/2022 12:54 PM EST Bronchoscopy, Diagnostic (54269) 02/08/2022 12:00 PM EST Pleural effusion Squamous [...] questions please contact the health personal care worker that requested your imaging first. ? Electronically signed by: Marcus Edwards MD, [facility] ([phone]), at 03/06/2022 2:27 PM Narrative 03/06/2022 2:27 [...] have questions please contactthe health personal care worker that requested your imaging first. Electronically signed by: Marcus Edwards MD, [facility]([phone]), at 03/06/2022 2:27 PM Gilmer Foster MD [...] questions please contact the health personal care worker that requested your imaging first. ? Electronically signed by: Maryann Magallanes MD, [facility] ([phone]), at 02/10/2022 8:05 AM Narrative 02/10/2022 8:05 [...] have questions please contactthe health personal care worker that requested your imaging first. Electronically signed by: Maryann Magallanes MD, [facility]([phone]), at 02/10/2022 8:05 AM Gilmer Foster MD [...] questions please contact the health personal care worker that requested your imaging first. ? Electronically signed by: Jose Aaron MD, [facility] ([phone]), at 02/08/2022 2:57 PM Narrative 02/08/2022 2:57 PM EST EXAMINATION: XR [...] have questions please contactthe health personal care worker that requested your imaging first. Electronically signed by: Jose Aaron MD, [facility]([phone]), at 02/08/2022 2:57 PM Gilmer Foster MD IMG DX ORDERABLE S * Specimen to Pathology (02/08/2022 1:15 PM EST) AP Specimen 02/08/2022 1:15 PM EST 02/08/2022 1:15 PM EST Narrative [facility] - 02/08/2022 1:15 PM EST Specimen requisition ordered. ??Separate Pathology report to follow Gilmer Foster MD PATHOLOGY/CYTOLO GY ORDERABLES [facility] [place] [address] * Non-Railway Switch Operator Final Report (02/08/2022 1:10 PM EST) Diagnosis Discussion [id number] ? Location: [facility]; The signing pathologist has (i) examined the relevant preparation(s) for the specimen(s) and (ii) rendered or confirmed the diagnosis(es). . ? Non-Railway Switch Operator Final DIAGNOSIS See Discussion Electronically signed by: ?Asher FLORES, Rory Swann Verified: ??02/10/2022 17:36 ??Cytopathologis t Performed at: ??-[facility] Dept. of Pathology, [place] [address] Rn Family: Maria Ines Marrufo MD, FCAP, ??CLIA Certificate: [id number] DISCUSSION Pleural fluid: left (thoracentesis) - Predominantly [...] Cell Block 1. 02/10/2022 5:36 PM EST [facility] LEFT PLEURAL FLUID / Unknown 02/08/2022 1:10 PM EST 02/08/2022 1:10 PM EST Gilmer Foster MD PATHOLOGY/CYTOLO GY ORDERABLES Performing Organization Address [facility] Co de Phone Number [facility] [place] [address] * Cytopathology Non-Gynecological (02/08/2022 1:10 PM EST) AP Specimen 02/08/2022 1:10 PM EST 02/08/2022 1:10 PM EST Narrative [facility] - 02/08/2022 1:10 PM EST Specimen requisition ordered. ??Separate Pathology report to follow Gilmer Foster MD PATHOLOGY/CYTOLO GY ORDERABLES Performing Organization Address [facility] Co de Phone Number [facility] [place] [address] * Surgical Pathology Report (02/08/2022 1:01 PM EST) Final Diagnosis [id number] ? Location: [facility]; A The signing pathologist has (i) examined [...] DO Verified: ??02/16/2022 10:09 ??Pathologist Performed at: ??-[facility] Dept. of Pathology, [place] [address] Rn Family: Maria Ines Marrufo MD, FCAP, ??CLIA Certificate: [id number] DISCUSSION No malignancy is identified. ??The morphology [...] A2 ?CK20 ?Negative A2 ?CDX2 ?Negative A2 ?JVM6tcod ?Negative A2 ?Calretinin ?Rare positive cell (high [...] of soft, pink-white membranous tissue fragments. Sections/Processing: Stockroom Coordinator sections in 2 cassettes labeled B1-B2. ??sns ?Frozen Section FROZEN SECTION DIAGNOSIS AFS - Left pleural biopsy, ?? for frozen section (2 blocks): Atypical cells, cannot exclude malignancy, defer to permanent. 02/08/22 13:26 Electronically signed by: ?Malia Lacy MD Verified: ??02/08/2022 13:50 ??Pathologist Performed at: ??-[facility] Dept. of Pathology, [place] [address] Rn Family: Maria Ines Marrufo MD, FCAP, ??CLIA Certificate: [id number] This intraoperative consultation should be interpreted as a preliminary diagnosis pending review of the entire specimen and special studies, if any. A final Surgical Pathology report will follow this preliminary Frozen Section report(s). 02/16/2022 10:09 AM EST [facility] Frozen Specimen 02/08/2022 1 :01 PM EST 02/08/2022 1:01 PM EST Pleura 02/08/2022 1:01 PM EST 02/08/2022 1:01 PM EST Gilmer Foster MD PATHOLOGY/CYTOLO GY ORDERABLES Performing Organization Address [facility] Co de Phone Number [facility] [place] [address] [facility] [place] [address] * Specimen to Pathology (02/08/2022 1:01 PM EST) AP Specimen 02/08/2022 1:01 PM EST 02/08/2022 1:01 PM EST Narrative [facility] - 02/08/2022 1:01 PM EST Specimen requisition ordered. ??Separate Pathology report to follow Gilmer Foster MD PATHOLOGY/CYTOLO GY ORDERABLES Performing Organization Address [facility] Co de Phone Number [facility] [place] [address] * Flow Cytometry Report (02/08/2022 12:54 PM EST) Flow Cytometry Report [id number] ? Location: [facility]; [address] The signing pathologist has (i) examined [...] Ruddy Verified: ??02/09/2022 16:30 ??Hematopathologist Performed at: ??-[facility] Dept. of Pathology, [place] [address] Rn Family: Maria Ines Marrufo MD, FCAP, ??CLIA Certificate: [id number] DISCUSSION Blasts based on CD45 expression and orthogonal light scatter, are not increased. The CD19 positive B-cells have a polytypic expression of surface immunoglobulin light chain (Moline:Lambda ratio at 1.7). The T-cells are an admixture of CD4+ and CD8+ T lymphocytes (ratio of 1.6). No loss or atypical intensity distributions are seen for any nixon T antigen (CD2, 3, 4+8, 5, 7). There is no increase in QM46-mmrvlaow/CD3-ne g NK cells. Flow analysis is an ancillary study. A definite diagnosis requires correlation with the morphologic features of this process and if necessary, correlation with other ancillary studies like immunohistochemistry , enzyme cytochemistry and/or cyto/ molecular genetics. This test was developed and its performance characteristics determined by the Clinical Flow Cytometry Laboratory at [facility]. It has not been cleared or [...] high complexity clinical laboratory testing. SPECIMEN PROCESSING [id number] Cells for immunophenotypic analysis were derived from [...] cytology but has ??recurred on each occasion. [facility] 02/08/2022 12:5 4 PM EST Gilmer Foster MD PATHOLOGY/CYTOLO GY ORDERABLES Performing Organization Address [facility] Co de Phone Number [facility] [place] [address] * Body Fluid Culture, Aerobic (02/08/2022 12:54 PM EST) Body Fluid Culture No growth [facility] Gram Stain Cytocentrifuge Gram Stain performed No Neutrophils seen. No microorganisms seen. [facility] Pleural Fluid 02/08/2022 12: 54 PM EST 02/08/2022 2:17 PM EST Comment:Pleural fluid Narrative Resulting Agency Comment Spec In Lab Gilmer Foster MD MICROBIOLOGY - G ENERAL ORDERABLES Performing Organization Address [facility] [place] [address] * Immunophenotyping Flow Cytometry (02/08/2022 12:54 PM EST) Immunophenotyping Flow See Comment [facility] [facility] Comment: When completed by the Pathologist, the Flow Cytometry Report ([id number]) will display under the Pathology Results section within [facility]. Other 02/08/2022 12:5 4 PM EST 02/08/2022 2:07 PM EST Narrative Resulting Agency Comment Spec In Lab Gilmer Foster MD HEMATOLOGY ORDER PHILOMENA Performing Organization Address City/[facility] Co de Phone Number [facility] [place] [address] * AFB culture Pleural Fluid (02/08/2022 12:54 PM EST) Acid Fast Bacilli Culture No Acid Fast Bacilli isolated If active tuberculosis is suspected, the patient should be on [employer]. Call Infection Prevention for assistance if needed. [facility] Acid Fast Stain No Acid Fast Bacilli seen [facility] Pleural Fluid 02/08/2022 12: 54 PM EST 02/08/2022 2:17 PM EST Comment:Pleural fluid Narrative Resulting Agency Comment Spec In Lab Gilmer Foster MD MICROBIOLOGY - G ENERAL ORDERABLES Performing Organization Address City/[facility]/[place] [address] * Fungus culture Pleural Fluid (02/08/2022 12:54 PM EST) Fungus Culture No Fungus isolated [facility] Pleural Fluid 02/08/2022 12: 54 PM EST 02/08/2022 2:17 PM EST Comment:Pleural fluid Narrative Resulting Agency Comment Spec In Lab Gilmer Foster MD MICROBIOLOGY - G [facility] ORDERABLES Performing Organization Address [facility] de Phone Number [facility] [place] [address] documented in this encounter Visit Diagnoses Diagnosis [...] subcutaneous injection 5,000 Units 5,000 Units, Subcutaneous, AREA MANAGER TO O.R., 1 dose, On Stephanie 02/08/22 [...] RN) 0900 (Not Given - Provider: Malia Paredes, CHRISTINA - Reason: Patient/family refused) heparin (porcine) (5,000 units/1 mL) subcutaneous injection 5,000 Units (COMPLETED) 5,000 Units, Subcutaneous, AREA MANAGER TO O.R., 1 dose, On Stephanie 02/08/22 at 1130, Not within 60 minutes of placing epidural catheter., Day of Surgery (Day of Procedure), Routine 1130 (Given - Provider: Marcus Kong, CHRISTINA) hydrOXYchloroQUINE (Plaquenil) tablet 200 mg 200 mg, Oral, DAILY, First dose on Sat02/09/22 at 0900, Until Discontinued, Routine 0827 (Given - Provider: Debbie Pride, CHRISTINA) 0836 (Given - Provider: Malia Paredes RN) [...] Angel, CHRISTINA) 0834 (Given - Provider: Malia Paredes, CHRISTINA) PRN Medication Order 02/08/2022 02/09/2022 02/10/2022 BUpivacaine [...] Unit) documented in this encounter Care Teams Wing Coverer Relationship Specialty Start Date End Date Tami Olivia [address] [place] [address] PCP - General Family Medicine 12/30/20 documented as of this encounter
--- OUTSIDE RECORDS SUMMARY | 2023-12-26 16:00 | XMS_ITS | Encounter Summary ---
Author Organization Formerly [facility] Address [facility] [place] [address] Care Team Providers Care Sessions Clerk Name Role Phone Tami Olivia Primary Care Provider [phone]- [phone] Encounter Details Date Type Department Care Team [...] 10:40 AM EST Office Visit Cardiology at [address] [phone] Chrissy Zepeda, MANAGER DEPARTMENT [facility] [place] [address] Scheduled Procedures Name Priority Associated Diagnoses Date/Ti me CARDIOVERSION-ELECTIVE (WRVU 2) atrial flutter ELECTROPHYSIOLOGY PROCEDURE Persistent atrial fibrillation CARDIOVERSION-ELECTIVE (WRVU 2) persistent atrial fibrillation TRANSESOPHAGEAL ECHOCARDIOGR AM (WRVU 2.3) persistent atrial fibrillation documented as of this encounter Visit Diagnoses Not on filedocumented in this encounter Care Teams Sessions Clerk Relationship Specialty Start Date End Date Tami Olivia [address] [place] [address] PCP - General Family Medicine 12/30/20 documented as of this encounter
--- OUTSIDE RECORDS SUMMARY | 2023-12-26 16:00 | XMS_ITS | Encounter Summary ---
Author Organization [facility] Address [facility] [place] [address] Care Team Providers Care Concrete Spreader Name Role Phone Tami Olivia Primary Care Provider [phone]- [phone] Reason for Visit * Reason Onset Date Comments Other 02/15/2022 Encounter Details Date Type Department Care Team (Late st Contact Info) Description 02/15/2022 Telephone Thoracic Surgery at [facility] [place] [phone] Megan Reza, RN Other Social History Tobacco [...] Telephone Encounter - Megan Reza, RN - 02/16/2022 9:10 AM ESTSummary: call [...] 10:40 AM EST Office Visit Cardiology at [address] [address] Chrissy Zepeda APRN [facility] [place] [address] Scheduled Procedures Name Priority Associated Diagnoses Date/Ti me CARDIOVERSION-ELECTIVE (WRVU 2) atrial flutter ELECTROPHYSIOLOGY PROCEDURE Persistent atrial fibrillation CARDIOVERSION-ELECTIVE (WRVU 2) persistent atrial fibrillation TRANSESOPHAGEAL ECHOCARDIOGR AM (WRVU 2.3) persistent atrial fibrillation documented as of this encounter Visit Diagnoses Not on filedocumented in this encounter Care Teams Concrete Spreader Relationship Specialty Start Date End Date Tami Olivia [address] [place] [address] PCP - General Family Medicine 12/30/20 documented as of this encounter
--- OUTSIDE RECORDS SUMMARY | 2023-12-26 16:00 | XMS_ITS | Encounter Summary ---
Author Organization [facility] Address [facility] [place] [address] Care Team Providers Care Health Manager Name Role Phone Tami Olivia Primary Care Provider [phone] [phone] Encounter Details Date Type Department Care Team (Latest Contact Info) Description 01/29/2022 12:00 PM EST Laboratory Appointment Lab [address] [place] [phone] Status post lobectomy of lung; Primary squamous [...] 10:40 AM EST Office Visit Cardiology at [address] [phone] Chrissy Zepeda, MORTEZA [facility] [place] [address] Scheduled Procedures Name Priority Associated Diagnoses Date/Ti [...] EST) Creatinine 1.11 0.80 - 1.50 mg/dL [facility] Est Glomerular Filtration Rate 71 >=60 mL/min/1. 73 m?? 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
--- OUTSIDE RECORDS SUMMARY | 2023-12-26 16:00 | XMS_ITS | Encounter Summary ---
Author Organization [facility] Address [facility] [address] [place] [id number] Care Team Providers Care Splunk Dashboard Developer Name Role Phone Tami Olivia Primary Care Provider [phone] Reason for Visit * Auth/Cert (Routine) Specialty [...] [facility] [place] [address] [facility] Referral ID Status Reason Start Date Expiration Date Visits Re quested Visits Authorized [id number] 1 1 Encounter Details Date Type Department Care Team (Late st Contact Info) Description 02/08/2022 12:01 PM EST Anesthesia [place] [phone] Keerthi Rice MD [facility] [place] [address] Tita Raza MD [facility] [place] [address] Anesthesia Record Procedure Summary Procedure Name Responsible [...] Single Lumen 02/08/22; 1132; brachial vein, right; [id number]-liktsa catheter system; Anatomical Landmarks; 20 gauge; Kendall [...] Procedure Summary Date: 02/08/22 Room / Location: [facility] OR [address] [place] [address] MAIN OR Anesthesia Start: 1201 Anesthesia Stop: 1401 Procedures: THORACOSCOPY; WITH BIOPSY(IES) OF PLEURA (WRVU 4.58) (Left: Chest) BRONCHOSCOPY, DIAGNOSTIC (WRVU 2.78) Diagnosis: Pleural effusion Squamous cell carcinoma of left lung (pleural effusion) Surgeons: Gilmer Gutiérrez MD Responsible Provider: Keerthi Rice MD Anesthesia Type: general ASA Status: 3 All Anesthesia Providers: Anesthesiologist: Keerthi Rice MD Sports Medicine Physician: Tita Raza MD Vitals Value Taken Time BP 125/71 02/08/22 1400 Temp Pulse 57 02/08/22 1401 Resp 16 02/08/22 1401 SpO2 99 % 02/08/22 1401 Pain Level Vitals shown include unvalidated device data. Patient Location: PACU/[facility] Level of Consciousness: Awake and Alert [...] IR Thoracentesis Left 11/08/2021 Ramírez Ramirez MD [facility] INTERVENTIONL RAD ??? PRO BRONCHOSCOPY, DIAGNOSTIC N/A 03/29/2021 BRONCHOSCOPY, DIAGNOSTIC (WRVU 2.78) performed by Gilmer Gutiérrez MD at [facility] MAIN OR ? ? PRO INJECTION ANES AGENT &/ STEROID INTERCOSTAL NERVE SINGLE LEVEL Left 03/29/2021 NERVE BLOCK, INTERCOSTAL NERVE (WRVU 1.18) performed by Gilmer Gutiérrez MD at [facility] MAIN OR ??? PRO THORACOSCOPY SURG LOBECTOMY Left 03/29/2021 @THORACOSCOPY,SURGICAL,W\LOBECTOMY,TOTAL OR SEGMENTAL (WRVU 24.64) performed by Johana Gutiérrez MD at [facility] MAIN OR ??? PRO THORACOSCOPY WITH MEDIASTINAL AND REGIONAL LYMPHADENECTOMY 03/29/2021 @THORACOSCOPY, SURG; W/MEDIASTINAL& REGIONAL LYMPHADENECTOMY (WRVU 4.12) performed by Gilmer Gutiérrez MD at [facility] MAIN OR ??? PRO THORACOSCOPY WITH WEDGE RESECTION AND ANATOMIC LUNG RESECTN Left 03/29/2021 @THORACOSCOPY, SURG; W/DX WEDGE RESC W/ANATOMIC LUNG RESC (WRVU 3) performed by Johana Gutiérrez MD at [facility] MAIN OR Social History Tobacco [...] and adequate venousaccess. Tita Raza MD 02/07/2022 chart snatcher (Dwayne): chart reviewed, patient interviewed and examined [...] 10:40 AM EST Office Visit Cardiology at [address] [phone] Chrissy Zepeda APRN [facility] [place] [address] Scheduled Procedures Name Priority Associated Diagnoses Date/Ti [...] mg documented in this encounter Care Teams Splunk Dashboard Developer Relationship Specialty Start Date End Date Tami Olivia [address] [place] [address] PCP - General Family Medicine 12/30/20 documented as of this encounter
--- OUTSIDE RECORDS SUMMARY | 2023-12-26 16:00 | XMS_ITS | Encounter Summary ---
Author Organization [facility] [place] [address] Care Team Providers Care Service Parts Coordinator Name Role Phone Tami Olivia Primary Care Provider [phone] [phone] Encounter Details Date Type Department Care Team (Late st Contact Info) Description 02/19/2022 Telephone [place] [phone] Megan Reza RN Social History [...] AM EST Office Visit Cardiology at [address] [phone] Chrissy Zepeda APRN [facility] [place] [address] Scheduled Procedures Name Priority Associated Diagnoses Date/Ti me CARDIOVERSION-ELECTIVE (WRVU 2) atrial flutter ELECTROPHYSIOLOGY PROCEDURE Persistent atrial fibrillation CARDIOVERSION-ELECTIVE (WRVU 2) persistent atrial fibrillation TRANSESOPHAGEAL ECHOCARDIOGR AM (WRVU 2.3) persistent atrial fibrillation documented as of this encounter Visit Diagnoses Not on filedocumented in this encounter Care Teams Service Parts Coordinator Relationship Specialty Start Date End Date Tami Olivia [address] [place] [address] PCP - General Family Medicine 12/30/20 documented as of this encounter
--- OUTSIDE RECORDS SUMMARY | 2023-12-26 16:00 | XMS_ITS | Encounter Summary ---
Author Organization [facility] [place] [address] Care Team Providers Care External Grinder Tool Name Role Phone Tami Olivia Primary Care Provider [phone] Encounter Details Date Type Department Care Team (Late st Contact Info) Description 01/30/2022 Telephone [place] [phone] Amy Corbett, RN Social History Tobacco Use [...] AM EST Office Visit Cardiology at [address] [phone] Chrissy Zepeda APRN [facility] [place] [address] Scheduled Procedures Name Priority Associated Diagnoses Date/Ti me CARDIOVERSION-ELECTIVE (WRVU 2) atrial flutter ELECTROPHYSIOLOGY PROCEDURE Persistent atrial fibrillation CARDIOVERSION-ELECTIVE (WRVU 2) persistent atrial fibrillation TRANSESOPHAGEAL ECHOCARDIOGR AM (WRVU 2.3) persistent atrial fibrillation documented as of this encounter Visit Diagnoses Not on filedocumented in this encounter Care Teams External Grinder Tool Relationship Specialty Start Date End Date Tami Olivia [address] [place] [address] PCP - General Family Medicine 12/30/20 documented as of this encounter
--- OUTSIDE RECORDS SUMMARY | 2023-12-26 16:00 | XMS_ITS | Encounter Summary ---
Author Organization [facility] [place] [address] Care Team Providers Care Radiation Oncology Therapist Name Role Phone Tami Olivia Primary Care Provider [phone] Encounter Details Date Type Department Care Team (Late st Contact Info) Description 02/12/2022 Telephone [place] [address] Megan Reza, RN Social History Tobacco Use [...] AM EST Office Visit Cardiology at [address] [phone] Chrissy Zepeda APRN [facility] [place] [address] Scheduled Procedures Name Priority Associated Diagnoses Date/Ti me CARDIOVERSION-ELECTIVE (WRVU 2) atrial flutter ELECTROPHYSIOLOGY PROCEDURE Persistent atrial fibrillation CARDIOVERSION-ELECTIVE (WRVU 2) persistent atrial fibrillation TRANSESOPHAGEAL ECHOCARDIOGR AM (WRVU 2.3) persistent atrial fibrillation documented as of this encounter Visit Diagnoses Not on filedocumented in this encounter Care Teams Radiation Oncology Therapist Relationship Specialty Start Date End Date Tami Olivia [address] [place] [address] PCP - General Family Medicine 12/30/20 documented as of this encounter
--- OUTSIDE RECORDS SUMMARY | 2023-12-26 16:00 | XMS_ITS | Encounter Summary ---
Author Organization [facility] Address [facility] [place] [address] Care Team Providers Care Box Spinner Name Role Phone Tami Olivia Primary Care Provider [phone] Encounter Details Date Type Department Care Team (Late st Contact Info) Description 02/19/2022 11:59 PM EST Anesthesia Event Main [place] [phone] Verna Anton MD [facility] [place] [address] Anesthesia Record Procedure Summary Procedure Name Responsible [...] IR Thoracentesis Left 11/08/2021 ForRamírez caldera MD [facility] INTERVENTIONL RAD [...] 4.58) performed by Gilmer Gutiérrez MD at [facility] OR ??? PRO THORACOSCOPY WITH MEDIASTINAL AND [...] DL with MAC 4. Plan: GA with modoc airway with possible LMA, given history of [...] 10:40 AM EST Office Visit Cardiology at [address] [phone] Chrissy Zepeda, MORTEZA [facility] [place] [address] Scheduled Procedures Name Priority Associated Diagnoses Date/Ti me CARDIOVERSION-ELECTIVE (WRVU 2) atrial flutter ELECTROPHYSIOLOGY PROCEDURE Persistent atrial fibrillation CARDIOVERSION-ELECTIVE (WRVU 2) persistent atrial fibrillation TRANSESOPHAGEAL ECHOCARDIOGR AM (WRVU 2.3) persistent atrial fibrillation documented as of this encounter Visit Diagnoses Not on filedocumented in this encounter Care Teams Box Spinner Relationship Specialty Start Date End Date Tami Olivia [address] [place] [address] PCP - General Family Medicine 12/30/20 documented as of this encounter
--- OUTSIDE RECORDS SUMMARY | 2023-12-26 16:00 | XMS_ITS | Encounter Summary ---
Author Organization [facility] Address [facility] [address] Care Team Providers Care Wardrobe Manager Name Role Phone Tami Olivia Primary Care Provider [phone] Reason for Visit * Reason Onset Date Comments Other 02/13/2022 Encounter Details Date Type Department Care Team (Late st Contact Info) Description 02/13/2022 Telephone Thoracic Surgery at [facility] [place] [phone] Megan Reza, RN Other Social History Tobacco [...] Telephone Encounter - Megan Reza, RN - 02/13/2022 10:06 AM ESTSummary: post [...] IS more as directed yesterday and pulling [phone]. [facility] returning on 02/15/22. Will check in and he will continue to check for his air leak. They knows to call with any questions or concerns. documented in this encounter Plan of Treatment Upcoming Encounters Date Type Department Care Team (Late st Contact Info) Description 01/20/2024 10:40 AM EST Office Visit Cardiology at [address] [phone] Chrissy Zepeda APRN [facility] [place] [address] Scheduled Procedures Name Priority Associated Diagnoses Date/Ti me CARDIOVERSION-ELECTIVE (WRVU 2) atrial flutter ELECTROPHYSIOLOGY PROCEDURE Persistent atrial fibrillation CARDIOVERSION-ELECTIVE (WRVU 2) persistent atrial fibrillation TRANSESOPHAGEAL ECHOCARDIOGR AM (WRVU 2.3) persistent atrial fibrillation documented as of this encounter Visit Diagnoses Not on filedocumented in this encounter Care Teams Wardrobe Manager Relationship Specialty Start Date End Date Tami Olivia [address] [place] [address] PCP - General Family Medicine 12/30/20 documented as of this encounter
--- OUTSIDE RECORDS SUMMARY | 2023-12-26 16:00 | XMS_ITS | Encounter Summary ---
Author Organization [facility] [place] [address] Care Team Providers Care Senior Court Office Assistant Name Role Phone Tami Olivia Primary [...] AM EST Office Visit Cardiology at [address] [phone] Chrissy Zepeda APRN [place] [address] Scheduled Procedures Name Priority Associated Diagnoses Date/Ti me CARDIOVERSION-ELECTIVE (WRVU 2) atrial flutter ELECTROPHYSIOLOGY PROCEDURE Persistent atrial fibrillation CARDIOVERSION-ELECTIVE (WRVU 2) persistent atrial fibrillation TRANSESOPHAGEAL ECHOCARDIOGR AM (WRVU 2.3) persistent atrial fibrillation documented as of this encounter Visit Diagnoses Not on filedocumented in this encounter Care Teams Senior Court Office Assistant Relationship Specialty Start Date End Date Tami Olivia [address] [place] [address] PCP - General Family Medicine 12/30/20 documented as of this encounter
--- OUTSIDE RECORDS SUMMARY | 2023-12-26 16:00 | XMS_ITS | Encounter Summary ---
Author Organization [facility] [place] [address] Care Team Providers Care Blood Bank Technician Name Role Phone Tami Olivia Primary Care Provider [phone] Reason for Referral * Home Health Care (Routine) - Closed Specialty Diagnoses / Procedures Referred By Bert gautam Referred To Contact Diagnoses Mass of upper lobe of left lung Tami Olivia [address] [place] [address] [facility] [address] [place] [address] Referral ID Status Reason Start Date Expiration Date V isits Requested Visits Authorized [id number] Closed Consult, Test & Treat 02/19/2022 08/18/2022 999 999 Reason for Visit * Reason Comments Wound Check (Drain problem) * Auth/Cert (Routine) Specialty Diagnoses / Procedures Referred By Bert t Referred To Contact Diagnoses Atrial flutter Procedures EMERGENCY Casa Rm MD [facility] [place] [address] [facility] Referral ID Status Reason Start Date Expiration Date Visits Re quested Visits Authorized [id number] 1 1 Encounter Details Date Type Department Care Team (Latest Contact Info) Description 02/17/2022 12:56 PM EST - 02/21/2022 1:04 PM EST Hospital Encounter Intermediate [place] [id number] Sommer Pryor MD [facility] [place] [address] Casa Alarcon MD [facility] [place] [address] Ramon Garcia MD [facility] [place] [address] Atrial flutter (Primary Dx); Mass of upper [...] Rajan Faulkner Patient Age: 71 y.o. Language: Turkish Race: White Ethnicity: Not nor Admit date: [...] hypertensive #Hydropneumothorax -Known to Thoracic Surgery at [facility] -Chest tube removed on 02/19/22 -Follow up with Thoracic Surgery in 2 weeks for repeat CXR Inpatient Provider Contact Information: MD Eren Flores PA-C Elise Bishop-Rimmer, PA-C Cardiovascular Medicine [phone] Discharge Diagnoses (Hospital Problems) and Secondary Diagnoses [...] RA. Labs with wbc 10, H&H 11/33, Nal210, BUN 16, Cr 1. EKG Aflutter with [...] to follow up with Dr. Neeru Vasquez [facility]. He will follow up with his PCP [...] you do not miss any doses. Your assistant sales center manager will decide if you should stay on [...] of 8AM-5PM please call the Cardiology Clinic [phone] to speak with a nurse. All other hours please call the Hospital Records Supervisor [phone] and ask to speak to the truck safety inspector on-call. Follow up Appointments: Doctor Where Phone # Date Time PCP Tami Olivia [address] [place] [address] 03/01/22 At 3:30pm Dialysis Chief Equipment Technician - [facility] Cardiology [phone] 03/29/22 At 11:00AM Home oxygen therapy: N/A [...] a nurse in the Thoracic Clinic at [phone]. After hours or on weekends or holidays please call: [phone] and ask to speak to the Thoracic [...] Provider Department Dept Phone 03/06/2022 12:30 PM [facility] PILY XRAY ROOM 1 XRay at [facility] Arrive at: [facility] Please go to [facility] 3L ([place] Location). 03/06/2022 1:00 PM Gilmer Foster MD Thoracic Surgery at [facility] Arrive at: [facility] [phone] Future Orders Complete By Expires Referral to Home Health [REF34 Custom] As directed Process Instructions: If no progress note charted, please enter Clinical details in comments. Scheduling Instructions: Comments: Please evaluate Rajan Faulkner for admission to Home Health. [address] [facility] [address] (home) Date of : 1950 DOCUMENTATION FOR VNA SERVICES (INCLUDING THOSE PATIENTS WITH MEDICARE COVERAGE REQUIRING HOME VNA SERVICES AND/OR HOSPICE SERVICES) PATIENT'S LOCATION: Rajan Faulkner [address] [facility] [address] (home) Cell: Telephone Information: Hydroelectric Plant Electrical Engineer's Name: Eleanor Prado In discussion with the attending physician, it is certified that this patient is under their care and that they, or a Nurse Practitioner,Clinical Nurse specialist or Physician Head Charrer who is working directly with them, had [...] status. Resumeprevious services. HOME HEALTH CARE AGENCY: [facility]. [address] [place] [address] PHONE: [phone] FAX: [phone] Start of care: 24-48 hours following discharge [...] Tami Olivia [address] / [place] [address] All VNA agencies which cover the area [...] a nurse in the Thoracic Clinic at [phone]. After hours or on weekends or holidays please call: [phone] and ask to speak to the Thoracic [...] you do not miss any doses. Your assistant sales center manager will decide if you should stay on [...] of 8AM-5PM please call the Cardiology Clinic [phone] to speak with a nurse. All other hours please call the Hospital Records Supervisor [phone] and ask to speak to the truck safety inspector on-call. Follow up Appointments: Doctor Where Phone # Date Time PCP Tami Olivia [address] [place] [address] 03/01/22 At 3:30pm Dialysis Chief Equipment Technician - [facility] Cardiology [phone] 03/29/22 At 11:00AM Home oxygen therapy: N/A [...] w/sensor 4 times daily as needed. 12/16/2023 AMIOdarone (Paceron) 200 mg Tablet Take 2 tablets by mouth 2 times daily for 5 days, THEN 2 tablets daily for 7 days. 34 tablet 02/21/2022 03/06/2022 Spiriva Respimat 2.5 mcg/actuation Mist 01/26/2022 acetaminophen [...] Progress Note Patient Name: Rajan Faulkner Service: WETLAND SCIENTIST / PA Responsible Attending: Ramon Garcia MD [...] Behavior: Behavior normal. Lab Comments: Recent Labs 02/21/226 02/20/2242802/19/22 0401 WBC 12.3* 9.8* 10.9* HGB 10.0* [...] 0.4 0.3 BILIDIR 0.1 -- Recent Labs 02/21/2235502/20/2242802/19/221 02/18/22 0413 02/17/22 1350 CALCIUM 8.9 8.7 [...] Diet: Cardiac Discussed with MD Rosalie Flores, ASHLEY 02/21/2022 [id number] Associated attestation - Ramon Garcia [...] SOB. A-flutter on tele. see scanned documents. NJ=[id number], Amiodarone gtt started, Mg+ & K+ repleted. See flowsheet for I/O. Safety precaution applied while in bed/OOB. Call w/in reach. PLAN MOVING FORWARD: D/C home tomorrow Continue to monitor per protocol Discharge planning as appropriate * Malia Nieto MD - 02/20/2022 8:31 AM EST [facility] Department of Thoracic Surgery Inpatient Consultation Note [place], [place] [address] FAX: Patient Name: Rajan Faulkner Patient : 1950 Patient Patient Location: [address] [place] [address] This consultation request was made by: SOMMER [...] Thoracentesis Left 11/08/2021 Ramírez Ramirez MD [facility] INTERVENTIONL RAD ??? PRO BRONCHOSCOPY, DIAGNOSTIC N/A 03/29/2021 BRONCHOSCOPY, DIAGNOSTIC (WRVU 2.78) performed by Gilmer Foster MD at [facility] MAIN OR ??? PRO BRONCHOSCOPY, DIAGNOSTIC N/A 02/08/2022 BRONCHOSCOPY, DIAGNOSTIC (WRVU 2.78) performed by Gilmer Foster MD at [facility] MAIN OR ? ? PRO INJECTION ANES AGENT &/ STEROID INTERCOSTAL NERVE SINGLE LEVEL Left 03/29/2021 NERVE BLOCK, INTERCOSTAL NERVE (WRVU 1.18) performed by Gilmer Foster MD at [facility] MAIN OR ??? PRO THORACOSCOPY SURG LOBECTOMY Left 03/29/2021 @THORACOSCOPY,SURGICAL,W\LOBECTOMY,TOTAL OR SEGMENTAL (WRVU 24.64) performed by Johana Foster MD at [facility] MAIN OR ??? PRO THORACOSCOPY WITH BIOPSY OF PLEURA Left 02/08/2022 THORACOSCOPY; WITH BIOPSY(IES) OF PLEURA (WRVU 4.58) performed by Gilmer Foster MD at [facility] OR ??? PRO THORACOSCOPY WITH MEDIASTINAL AND REGIONAL LYMPHADENECTOMY 03/29/2021 @THORACOSCOPY, SURG; W/MEDIASTINAL& REGIONAL LYMPHADENECTOMY (WRVU 4.12) performed by Gilmer Foster MD at [facility] MAIN OR ??? PRO THORACOSCOPY WITH WEDGE RESECTION AND ANATOMIC LUNG RESECTN Left 03/29/2021 @THORACOSCOPY, SURG; W/DX WEDGE RESC W/ANATOMIC LUNG RESC (WRVU 3) performed by Johana Foster MD at [facility] OR Medications: Outpatient Medications Marked as Taking [...] on file Review of Systems: Patient denies ND/stroke/TIA/DVT/PE/cancer, problems with kidneys/liver/bleeding/anesthesia, fevers, chills, sweats, weight [...] from 02/17/2022 in Intermediate Cardiac Care Unit [facility] Admission (Discharged) from 02/08/2022 in Short Stay Unit at [facility] Weight 72.7 kg (160 lb 4.4 [...] QTC Calculated (Bezet) 498 ms Calculated P [place] -101 degrees Calculated R [place] 75 degrees Calculated T [place] -88 degrees INTERPRETATION Atrial flutter with 2:1 A-V conduction Minimal voltage criteria for LVH, may be normal variant ( Leoma product ) Abnormal ECG When compared with ECG of 13-FEB-2021 15:15, Atrial flutter has replaced Sinus rhythm Vent. rate has increased BY [address] now depressed in Inferior leads T wave inversion now evident in Inferior leads Nonspecific T wave abnormality now evident in Lateral leads Confirmed by MD Glenda, Rodger ([id number]) on 02/18/2022 4:23:20 PM Comprehensive metabolic panel [...] QTC Calculated (Bezet) 549 ms Calculated P [place] 89 degrees Calculated R [place] 73 degrees Calculated T [place] -131 degrees INTERPRETATION Atrial flutter with 2:1 A-V conduction Minimal voltage criteria for LVH, may be normal variant Abnormal ECG When compared with ECG of 17-FEB-2022 13:18, (unconfirmed) No significant change was found Confirmed by MD Radha, Ramon ([id number]) on 02/18/2022 1:36:02 PM Echocardiogram Transthoracic Result [...] QTC Calculated (Bezet) 514 ms Calculated R [place] 71 degrees Calculated T [place] -130 degrees INTERPRETATION Atrial flutter with variable A-V block Minimal voltage criteria for LVH, may be normal variant ( Leoma product ) Abnormal ECG When compared with ECG of 18-FEB-2022 06:25, ST no longer depressed in Inferior leads Nonspecific T wave abnormality, improved in Anterolateral leads EKG 12 Lead Result Value Ref Range Ventricular rate 78 BPM QRS Duration 98 ms Q-T Interval 382 ms QTC Calculated (Bezet) 435 ms Calculated R [place] 90 degrees Calculated T [place] 72 degrees INTERPRETATION Atrial fibrillation Rightward axis [...] QTC Calculated (Bezet) 462 ms Calculated R [place] 78 degrees Calculated T [place] -112 degrees INTERPRETATION Atrial fibrillation with rapid [...] Anterior leads Confirmed by MD Aric, Emre ([id number]) on 02/19/2022 2:57:08 PM Heparin (unfractionated) Level [...] QTC Calculated (Bezet) 500 ms Calculated R [place] 93 degrees Calculated T [place] -81 degrees INTERPRETATION Sinus tachycardia Rightward axis [...] who have questions please contact the health nursing care partner that requested your imaging first. Electronically signed by: Matias Mata MD, [facility] ([phone]), at 02/17/2022 2:16 PM XR Chest PA [...] who have questions please contact the health nursing care partner that requested your imaging first. Electronically signed by: Sheeba Woods MD, [facility] ([phone]), at 02/18/2022 6:41 AM XR Chest PA [...] who have questions please contact the health nursing care partner that requested your imaging first. Electronically signed by: Sheeba Woods MD, [facility] ([phone]), at 02/19/2022 6:55 AM Micro: None Assessment: [...] Nieto MD 02/20/2022 Thoracic Surgery Service Pager [phone] * Rosalie Champagne PA - 02/20/2022 7:05 AM EST Images from the original note were not included. Inpatient Cardiology Progress Note Patient Name: Rajan Faulkner Service: WETLAND SCIENTIST / PA Responsible Attending: Ramon Garcia MD [...] Behavior: Behavior normal. Lab Comments: Recent Labs 02/20/22 0429 02/19/22 0401 02/18/22 0413 WBC 9.8* 10.9* 9.5 HGB 10.6* 11.7* 11.7* HCT 31.6* 35.4* 35.8* PLATELET 295 279 280 No results for input(s): INR in the last 168 hours. Recent Labs 02/20/2242802/19/221 02/18/223 NA 137 137 135 K 3.9 4.3 4.2 CL 103 101 103 CO2 23 23 20* BUN 20 19 15 CREATININE 1.01 1.07 0.96 Recent Labs 02/19/22 0401 02/17/22 1350 AST Not Perf 18 ALT 13 12 ALKPHOS 72 67 BILITOT 0.4 0.3 BILIDIR 0.1 -- Recent Labs 02/20/2242802/19/2240002/18/223 02/17/22 1350 CALCIUM 8.7 9.4 9.3 9.6 [...] Xarelto Diet: Cardiac Discussed with MD Rosalie Flores PA-C 02/20/2022 p2266 Associated attestation - Ramon [...] Progress Note Patient Name: Rajan Faulkner Service: WETLAND SCIENTIST / PA Responsible Attending: Ramon Garcia MD [...] infusion Diet: Cardiac Discussed with MD Rosalie Flores, ASHLEY 02/19/2022 [id number] Associated attestation - Ramon Garcia [...] Progress Note Patient Name: Rajan Faulkner Service: WETLAND SCIENTIST / PA Responsible Attending: Ramon Garcia MD [...] Discussed with MD Eren Flores PA-C Pager [phone] 02/18/2022 Associated attestation - Ramon Garcia MD [...] RA. Labs with wbc 10, H&H 11/33, Gjz907, BUN 16, Cr 1. EKG Aflutter with [...] Thoracentesis Left 11/08/2021 Ramírez Ramirez MD [facility] INTERVENTIONL RAD ??? PRO BRONCHOSCOPY, DIAGNOSTIC N/A 03/29/2021 BRONCHOSCOPY, DIAGNOSTIC (WRVU 2.78) performed by Gilmer Foster MD at [facility] MAIN OR ??? PRO BRONCHOSCOPY, DIAGNOSTIC N/A 02/08/2022 BRONCHOSCOPY, DIAGNOSTIC (WRVU 2.78) performed by Gilmer Foster MD at [facility] MAIN OR ? ? PRO INJECTION ANES AGENT &/ STEROID INTERCOSTAL NERVE SINGLE LEVEL Left 03/29/2021 NERVE BLOCK, INTERCOSTAL NERVE (WRVU 1.18) performed by Gilmer Foster MD at [facility] MAIN OR ??? PRO THORACOSCOPY SURG LOBECTOMY Left 03/29/2021 @THORACOSCOPY,SURGICAL,W\LOBECTOMY,TOTAL OR SEGMENTAL (WRVU 24.64) performed by Johana Foster MD at [facility] MAIN OR ??? PRO THORACOSCOPY WITH BIOPSY OF PLEURA Left 02/08/2022 THORACOSCOPY; WITH BIOPSY(IES) OF PLEURA (WRVU 4.58) [facility] ??? PRO THORACOSCOPY WITH MEDIASTINAL AND REGIONAL LYMPHADENECTOMY 03/29/2021 @THORACOSCOPY, SURG; W/MEDIASTINAL& REGIONAL LYMPHADENECTOMY (WRVU 4.12) performed by Gilmer Foster MD at [facility] MAIN OR ??? PRO THORACOSCOPY WITH WEDGE RESECTION AND ANATOMIC LUNG RESECTN Left 03/29/2021 @THORACOSCOPY, SURG; W/DX WEDGE RESC W/ANATOMIC LUNG RESC (WRVU 3) performed by Johana Foster MD at [facility] MAIN OR Significant Family History: Family History [...] B/L, no calf tenderness, swelling, or erythema. 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 [...] drip Sarah Barnes MD 02/17/2022 Pager # [phone] documented in this encounter ED Notes * [...] changed. Electronically signed by: Matias Mata MD, [facility] ([phone]), at 02/17/2022 2:16 PM ED Course as of 02/17/22 1902 Sat Feb 17, 2022 1430 Patient remains tachycardic to 140s s/p three doses 5 mg metoprolol. Per records, patient was tachycardic to this same range during home health visits this week. Plan for cardiology involvement to discuss further management. 1515 Surgery air traffic control specialist center for Thoracic will see the patient in [...] effusion compared to prior. General Surgery, air traffic control specialist center for Thoracic Surgery, examined the patient in [...] home via private car. Summary faxed to A and report called to RN Problem: Adult [...] & Follow-up Care: Contact information for follow-up [facility] [address] [place] [address] Home Health [facility] H[facility], [place] [address] [facility] [address] Transportation: family/friend (Eleanor) Functional status prior to [...] MEDICARE Payor: AARP MANAGED MEDICARE / [facility]: [facility] / Product Type: *No [...] Donald PA - 02/19/2022 2:25 PM EST [facility] Department of Thoracic Surgery Inpatient Consultation Note [facility] [address] [place] [address] FAX: Patient Name: Rajan Faulkner Patient : 1950 Patient Patient Location: [address] [place] [address] This consultation request was made by: SOMMER [...] Left 11/08/2021 Forauer, Ramírez Ziegler MD [facility] INTERVENTIONL RAD ??? PRO BRONCHOSCOPY, DIAGNOSTIC N/A 03/29/2021 BRONCHOSCOPY, DIAGNOSTIC (WRVU 2.78) performed by Gilmer Foster MD at [facility] OR ??? PRO BRONCHOSCOPY, DIAGNOSTIC N/A 02/08/2022 BRONCHOSCOPY, DIAGNOSTIC (WRVU 2.78) performed by Gilmer Foster MD at [facility] OR ? ? PRO INJECTION ANES AGENT &/ STEROID INTERCOSTAL NERVE SINGLE LEVEL Left 03/29/2021 NERVE BLOCK, INTERCOSTAL NERVE (WRVU 1.18) performed by Gilmer Foster MD at [facility] OR ??? PRO THORACOSCOPY SURG LOBECTOMY Left 03/29/2021 @THORACOSCOPY,SURGICAL,W\LOBECTOMY,TOTAL OR SEGMENTAL (WRVU 24.64) performed by Johana Foster MD at [facility] OR ??? PRO THORACOSCOPY WITH BIOPSY OF PLEURA Left 02/08/2022 THORACOSCOPY; WITH BIOPSY(IES) OF PLEURA (WRVU 4.58) performed by Gilmer Foster MD at [facility] OR ??? PRO THORACOSCOPY WITH MEDIASTINAL AND REGIONAL LYMPHADENECTOMY 03/29/2021 @THORACOSCOPY, SURG; W/MEDIASTINAL& REGIONAL LYMPHADENECTOMY (WRVU 4.12) performed by Gilmer Foster MD at [facility] OR ??? PRO THORACOSCOPY WITH WEDGE RESECTION AND ANATOMIC LUNG RESECTN Left 03/29/2021 @THORACOSCOPY, SURG; W/DX WEDGE RESC W/ANATOMIC LUNG RESC (WRVU 3) performed by Johana Foster MD at [facility] Medications: Outpatient Medications Marked as [...] on file Review of Systems: Patient denies ND/stroke/TIA/DVT/PE/cancer, problems with kidneys/liver/bleeding/anesthesia, fevers, chills, sweats, weight [...] from 02/17/2022 in Intermediate Cardiac Care Unit [facility] Admission (Discharged) from 02/08/2022 in Short Stay Unit at [facility] Weight 72.5 kg (159 lb 13.3 [...] QTC Calculated (Bezet) 498 ms Calculated P [place] -101 degrees Calculated R [place] 75 degrees Calculated T [place] -88 degrees INTERPRETATION Atrial flutter with 2:1 A-V conduction Minimal voltage criteria for LVH, may be normal variant ( Leoma product ) Abnormal ECG When compared with ECG of 13-FEB-2021 15:15, Atrial flutter has replaced Sinus rhythm Vent. rate has increased BY [address] now depressed in Inferior leads T wave inversion now evident in Inferior leads Nonspecific T wave abnormality now evident in Lateral leads Confirmed by MD Glenda, Rodger ([id number]) on 02/18/2022 4:23:20 PM Comprehensive metabolic panel [...] QTC Calculated (Bezet) 549 ms Calculated P [place] 89 degrees Calculated R [place] 73 degrees Calculated T [place] -131 degrees INTERPRETATION Atrial flutter with 2:1 A-V conduction Minimal voltage criteria for LVH, may be normal variant Abnormal ECG When compared with ECG of 17-FEB-2022 13:18, (unconfirmed) No significant change was found Confirmed by MD Garcia Daniel ([id number]) on 02/18/2022 1:36:02 PM Echocardiogram Transthoracic Result [...] QTC Calculated (Bezet) 514 ms Calculated R [place] 71 degrees Calculated T [place] -130 degrees INTERPRETATION Atrial flutter with variable A-V block Minimal voltage criteria for LVH, may be normal variant ( Leoma product ) Abnormal ECG When compared with ECG of 18-FEB-2022 06:25, ST no longer depressed in Inferior leads Nonspecific T wave abnormality, improved in Anterolateral leads EKG 12 Lead Result Value Ref Range Ventricular rate 78 BPM QRS Duration 98 ms Q-T Interval 382 ms QTC Calculated (Bezet) 435 ms Calculated R [place] 90 degrees Calculated T [place] 72 degrees INTERPRETATION Atrial fibrillation Rightward axis [...] QTC Calculated (Bezet) 462 ms Calculated R [place] 78 degrees Calculated T [place] -112 degrees INTERPRETATION Atrial fibrillation with rapid [...] who have questions please contact the health nursing care partner that requested your imaging first. Electronically signed by: Matias Mata MD, [facility] ([phone]), at 02/17/2022 2:16 PM XR Chest PA [...] who have questions please contact the health nursing care partner that requested your imaging first. Electronically signed by: Sheeba Woods MD, [facility] ([phone]), at 02/18/2022 6:41 AM XR Chest PA [...] who have questions please contact the health nursing care partner that requested your imaging first. Electronically signed by: Sheeba Woods MD, [facility] ([phone]), at 02/19/2022 6:55 AM Micro: None Assessment: [...] STEVE Peñaloza 02/19/2022 Thoracic Surgery Service Pager [phone] Associated attestation - Gilmer Foster MD - [...] TBD Patient is insured through: Primary Insurance: AAR MANAGED MEDICARE Payor: AARP MANAGED MEDICARE / [facility]: [facility]PLETE / Product Type: *No Producttype* / Secondary Insurance: N/A Last Physical Therapy Recommendation: with Last Occupational Therapy Recommendation: with Plan for discharge is: Home with family; services to be determined Agency Referrals: [facility] Transportation: family Barriers to discharge: Discharge planning [...] for further details. STEVE Johnson 02/19/2022 Pager [phone] * Plan of Care - Eren Cesar PA - 02/18/2022 3:56 [...] for further details. STEVE Mack 02/18/2022 Pager [phone] * Initial Assessments - Isa Lew RN [...] surrogate would be surrogate decision maker per [place] surrogate decision making law. (Only good for 180 days) Any patient receiving care in [place] must abide by [place] law. The hierarchy for surrogate decision making [...] (i) The agent with financial power of patent attorney or a conservator appointed in accordance [...] Current DME: none Home Address confirmed as: [address] [facility] [address] Social & Family Supports: All names listed below confirmed with patient as current and correct Extended Emergency Contact Information Primary Emergency Contact: ELEANOR PRADO Mobile Relation: Significant Other Current Care Provided by: spouse/significant other (she helps with chest tube.) Provides Primary Care For: no one Quality of Family relationships: supportive, helpful Community Resources being provided currently: homecare agency- followed by [facility]. [address] [facility] [place] [address] PHONE: [phone] FAX: [phone] Behavioral Health History: none discussed Substance Use/Abuse [...] Pertinent/Service Specific Information: Health/Prescription Coverage: Primary Insurance: [employer] MEDICARE Payor: [employer] MEDICARE / Plan: [facility] COMPLETE / Product Type: *No Producttype* / Secondary Insurance: N/A ONLY if patient has Medicare A&B - Does this patient have secondary insurance?: Yes ; Prescription Coverage: Yes Preferred Pharmacy: [facility] [address] [address] [place] Status: Patient is a : No Primary Care Provider confirmed: Tami Olivia [phone] Patient/Caregiver Goals of Treatment: Potential Needs for Transition of Care: home health care Agency Referrals: Resumption of services with: [facility]. [address] [facility] [address] PHONE: [phone] FAX: [phone] He gets RN services for his atrium. [...] with transition of care planning. Covering pager #[phone] for today. * Consult Note - Bi Baez MD - 02/18/2022 10:08 AM EST [facility] Department of Thoracic Surgery Inpatient Consultation Note [facility] [place], [place] [address] FAX: Patient Name: Rajan Faulkner Patient : 1950 Patient Patient Location: [address] [place] [address] This consultation request was made by: SOMMER [...] Left 11/08/2021 Forauer, Ramírez Ziegler MD [facility] INTERVENTIONL RAD ??? PRO BRONCHOSCOPY, DIAGNOSTIC N/A 03/29/2021 BRONCHOSCOPY, DIAGNOSTIC (WRVU 2.78) performed by Gilmer Foster MD at [facility] MAIN OR ??? PRO BRONCHOSCOPY, DIAGNOSTIC N/A 02/08/2022 BRONCHOSCOPY, DIAGNOSTIC (WRVU 2.78) performed by Gilmer Foster MD at [facility] MAIN OR ? ? PRO INJECTION ANES AGENT &/ STEROID INTERCOSTAL NERVE SINGLE LEVEL Left 03/29/2021 NERVE BLOCK, INTERCOSTAL NERVE (WRVU 1.18) performed by Gilmer Foster MD at [facility] MAIN OR ??? PRO THORACOSCOPY SURG LOBECTOMY Left 03/29/2021 @THORACOSCOPY,SURGICAL,W\LOBECTOMY,TOTAL OR SEGMENTAL (WRVU 24.64) performed by Johana Foster MD at [facility] MAIN OR ??? PRO THORACOSCOPY WITH BIOPSY OF PLEURA Left 02/08/2022 THORACOSCOPY; WITH BIOPSY(IES) OF PLEURA (WRVU 4.58) [facility] ??? PRO THORACOSCOPY WITH MEDIASTINAL AND REGIONAL LYMPHADENECTOMY 03/29/2021 @THORACOSCOPY, SURG; W/MEDIASTINAL& REGIONAL LYMPHADENECTOMY (WRVU 4.12) performed by Gilmer Foster MD at [facility] MAIN OR ??? PRO THORACOSCOPY WITH WEDGE RESECTION AND ANATOMIC LUNG RESECTN Left 03/29/2021 @THORACOSCOPY, SURG; W/DX WEDGE RESC W/ANATOMIC LUNG RESC (WRVU 3) performed by Johana Foster MD at [facility] MAIN OR Medications: Outpatient Medications Marked as [...] on file Review of Systems: Patient denies ND/stroke/TIA/DVT/PE/cancer, problems with kidneys/liver/bleeding/anesthesia, fevers, chills, sweats, weight [...] from 02/17/2022 in Intermediate Cardiac Care Unit [facility] Admission (Discharged) from 02/08/2022 in Short Stay Unit at [facility] Weight 73.3 kg (161 lb 8 [...] QTC Calculated (Bezet) 498 ms Calculated P [place] -101 degrees Calculated R [place] 75 degrees Calculated T [place] -88 degrees INTERPRETATION Atrial flutter with 2:1 [...] QTC Calculated (Bezet) 549 ms Calculated P [place] 89 degrees Calculated R [place] 73 degrees Calculated T [place] -131 degrees INTERPRETATION Atrial flutter with 2:1 [...] who have questions please contact the health nursing care partner that requested your imaging first. Electronically signed by: Matias Mata MD, [facility] ([phone]), at 02/17/2022 2:16 PM XR Chest PA [...] who have questions please contact the health nursing care partner that requested your imaging first. Electronically signed by: Sheeba Woods MD, [facility] ([phone]), at 02/18/2022 6:41 AM Micro: None Assessment: [...] Baez MD 02/18/2022 Thoracic Surgery Service Pager [phone] Associated attestation - Anthony Tanner MD - [...] pharmacologic rhythm control strategy Jakob Hogan MD Bending Shed Worker [id number] * Consult Note - Lacy Rosario MD - 02/17/2022 1:25 PM EST [facility] Department of Surgery Inpatient Consult Note Consultation [...] THORACENTESIS LEFT 11/08/2021 IR Thoracentesis Left 11/08/2021 Ashley, Ramírez Ziegler MD [facility] INTERVENTIONL RAD ??? PRO BRONCHOSCOPY, DIAGNOSTIC N/A 03/29/2021 BRONCHOSCOPY, DIAGNOSTIC (WRVU 2.78) performed by Gilmer Foster MD at [facility] MAIN OR ??? PRO BRONCHOSCOPY, DIAGNOSTIC N/A 02/08/2022 BRONCHOSCOPY, DIAGNOSTIC (WRVU 2.78) performed by Gilmer Foster MD at [facility] OR ? ? PRO INJECTION ANES AGENT &/ STEROID INTERCOSTAL NERVE SINGLE LEVEL Left 03/29/2021 NERVE BLOCK, INTERCOSTAL NERVE (WRVU 1.18) performed by Gilmer Foster MD at [facility] OR ??? PRO THORACOSCOPY SURG LOBECTOMY Left 03/29/2021 @THORACOSCOPY,SURGICAL,W\LOBECTOMY,TOTAL OR SEGMENTAL (WRVU 24.64) performed by Johana Foster MD at [facility] OR ??? PRO THORACOSCOPY WITH BIOPSY OF PLEURA Left 02/08/2022 THORACOSCOPY; WITH BIOPSY(IES) OF PLEURA (WRVU 4.58) performed by Gilmer Foster MD at [facility] OR ??? PRO THORACOSCOPY WITH MEDIASTINAL AND REGIONAL LYMPHADENECTOMY 03/29/2021 @THORACOSCOPY, SURG; W/MEDIASTINAL& REGIONAL LYMPHADENECTOMY (WRVU 4.12) performed by Gilmer Foster MD at [facility] OR ??? PRO THORACOSCOPY WITH WEDGE RESECTION AND ANATOMIC LUNG RESECTN Left 03/29/2021 @THORACOSCOPY, SURG; W/DX WEDGE RESC W/ANATOMIC LUNG RESC (WRVU 3) performed by Johana Foster MD at [facility] OR Medications No current facility-administered medications [...] If you have any questions, please page [phone]. [X] Consult service to continue to follow [...] AM EST Office Visit Cardiology at [address] [id number] Chrissy Zepeda APRN [facility] [place] [address] Scheduled Procedures Name Priority Associated Diagnoses Date/Ti [...] HC CBC,PLT & AUTO DIFF Routine 2 3:56 AM EST HC MAGNESIUM, SERUM Routine [...] (Bezet) 488 ms MUSE SYSTEM Calculated P [place] 131 degrees MUSE SYSTEM Calculated R [place] 71 degrees MUSE SYSTEM Calculated T [place] -83 degrees MUSE SYSTEM INTERPRETATION Atrial flutter with 2:1 A-V conduction Minimal voltage criteria for LVH, may be normal variant ( Yash product ) Nonspecific ST abnormality Abnormal ECG When compared with ECG of 20-FEB-2022 07:59, (unconfirmed) No significant change was found I personally reviewed the tracing and edited the fellows interpretation Confirmed by fellow Rudi Guzmán ([id number]) on 02/22/2022 7:13:33 AM Confirmed by MD Rojas David ([id number]) on 02/24/2022 4:32:44 PM MUSE SYSTEM 02/21/2022 6:21 AM EST 02/24/2022 4:32 PM EST Sarah Barnes MD ECG ORDERABLES MUSE SYSTEM * Scan, Peripheral Blood (02/21/2022 3:56 AM EST) Pathologist [facility] Plat estimate Normal [facility] RBC Morphology Abnormal [facility] Ovalocytes 1-5 /HPF [facility] HOSP ITAL [facility]OR[facility] Blood 02/21/2022 3:56 AM EST 02/21/2022 4:30 AM EST Narrative Resulting Agency Comment Spec In Lab Sarah Barnes MD HEMATOLOGY ORDERABLE S [facility] [place] [address] * (ABNORMAL) Differential, Automated (02/21/2022 3:56 AM EST) Pathologist [facility] Neutrophil % 73.9 % [facility] Neutrophil Absolute 9.07(H) 1.70 - 6.10 x10(3)/mc L [facility] Lymph % 12.0 % [facility] Lymphocytes Abs 1.5 0.9 - 3.2 x10(3)/mc L [facility] Monocyte % 13.1 % [facility] Monocyte Abs 1.6(H) 0.3 - 0.9 x10(3)/mc L [facility] Eos % 0.2 % [facility] Eosinophils Abs 0.0 0.0 - 0.4 x10(3)/ L [facility] Basophil % 0.3 % [facility] Baso Absolute 0.0 0.0 - 0.1 x10(3)/ L [facility] Immature Gran % 0.50 % [facility] Comment: Immature granulocytes(IG's)percentage and absolute count will include metamyelocytes, myelocytes, and promyelocytes. Blood smears from CBCs yielding IG's will be scanned manually for concordance. If this scan disagrees with the automated IG or if promyelocytes are noted, a manual differential will be performed. Immature Gran Absolute 0.06(H) 0.00 - 0.04 x10(3)/ L [facility] Blood 02/21/2022 3:56 AM EST 02/21/2022 4:30 AM EST Narrative Resulting Agency Comment Spec In Lab Sarah Barnes MD HEMATOLOGY ORDERABLE S Performing Organization Address City/State/[facility] Co de Phone Number [facility] [address] * (ABNORMAL) Hemogram (02/21/2022 3:56 AM EST) White Blood Cell 12.3(H) 4.0 - 9.5 x10(3)/mc L [facility] Red Blood Cell 3.59(L) 4.58 - 5.54 x10(6)/ L [facility] Hemoglobin 10.0(L) 13.7 - 16.5 g/dL [facility] Hematocrit 30.2(L) 40.5 - 48.5 % [facility] Mean Cell Volume 84.1 82.9 - 93.1 fL [facility] Mean Cell Hemoglobin 27.9 27.5 - 32.1 pg [facility] Mean Cell Hemoglobin Concentration 33.1 32.0 - 35.7 g/dL [facility] Platelet 310 145 - 357 x10(3)/mc L [facility] RDW Standard Deviation 43.2 36.0 - 45.0 fL [facility] RDW coefficient of variation 13.9(H) 11.4 - 13.8 % [facility] Mean Platelet Volume 9.2 7.6 - 12.9 fL [facility] NRBC% auto 0.0 % [facility] NRBC Absolute 0.000 0.000 - 0.000 x10(3)/mc L [facility] Blood 02/21/2022 3:56 AM EST 02/21/2022 4:30 AM EST Narrative Resulting Agency Comment Spec In Lab Sarah Barnes MD HEMATOLOGY ORDERABLE S Performing Organization Address [facility] de Phone Number [facility] [address] * Magnesium (02/21/2022 3:56 AM EST) Magnesium 0.85 0.69 - 1.07 mmol/L [facility] Blood 02/21/2022 3:56 AM EST 02/21/2022 4:30 AM EST Narrative Resulting Agency Comment Spec In Lab Sarah Barnes MD CHEMISTRY ORDERABLES Performing Organization Address [facility] de Phone Number [facility] [address] * (ABNORMAL) BMP w/fasting Glucose (02/21/2022 3:56 AM EST) Glucose Fasting 110(H) 65 - 99 mg/dL [facility] Comment: ?Fasting* Glucose Interpretive Criteria Normal [...] of Diabetes Mellitus, Position Statement from the [place] [employer]. ??Diabetes Care, Volume 33, Supplement 1, Mar 2009 Blood Urea Nitrogen 16 10 - 20 mg/dL [facility] Creatinine 1.04 0.80 - 1.50 mg/dL [facility] Sodium 135 135 - 145 mmol/L [facility] Potassium 4.0 3.5 - 5.0 mmol/L [facility] Comment: Please note: ??Patients with WBC >100,000 may have falsely elevated Potassium levels. ??For accurate Potassium quantification in these patients send serum separator tube (gold top) for subsequent determinations. ??Contact the Clinical Chemistry Laboratory if there are any questions. Chloride 101 98 - 107 mmol/L [facility] Carbon Dioxide 24 22 - 31 mmol/L [facility] Anion Gap 10 5 - 15 mmol/L [facility] Calcium 8.9 8.5 - 10.5 mg/dL [facility] Est Glomerular Filtration Rate 76 >=60 mL/min/1. 73 m?? [facility] Comment: This patient's estimated [...] In Lab Sarah Barnes MD CHEMISTRY ORDERABLES [facility] [place] [address] * EKG 12 Lead (02/20/2022 7:59 AM EST) Ventricular rate 140 BPM MUSE SYSTEM Atrial Rate 140 BPM MUSE SYSTEM P-R Interval 176 ms MUSE SYSTEM QRS Duration 98 ms MUSE SYSTEM Q-T Interval 328 ms MUSE SYSTEM QTC Calculated (Bezet) 500 ms MUSE SYSTEM Calculated R [place] 93 degrees MUSE SYSTEM Calculated T [place] -81 degrees MUSE SYSTEM INTERPRETATION Atrial flutter with 2:1 A-V conduction Left posterior fascicular block Minimal voltage criteria for LVH, may be normal variant ( Leoma product ) Abnormal ECG When compared with ECG of 19-FEB-2022 10:55, Atrial flutter has replaced Atrial fibrillation I personally reviewed the tracing and edited the fellows interpretation Confirmed by fellow Rudi Guzmán ([id number]) on 02/20/2022 4:12:13 PM Confirmed by Cindy Walker ([id number]) on 02/21/2022 7:41:04 AM MUSE SYSTEM 02/20/2022 [...] small air component. 2. ??Additional unchanged loculated tkcez-[id number] left pleural effusion. 3. ??Unchanged left lung atelectasis. Thank you for letting us participate in the care of this patient. ??If you are a health care provider and have any questions regarding this report, please contact the number below. ??For patients who have questions please contact the health nursing care partner that requested your imaging first. ? Electronically signed by: Yosef Earl MD, [facility] ([phone]), at 02/20/2022 8:52 AM Narrative 02/20/2022 8:52 [...] small air component. 2. Additional unchanged loculated qqhyx-ey-zwkxgtsa left pleuraleffusion. 3. Unchanged left lung atelectasis. Thank you for letting us participate in the care of this patient. If youare a health care provider and have any questions regarding this report,please contact the number below. For patients who have questions please contactthe health nursing care partner that requested your imaging first. Ramon Garcia MD IMG DX ORDERABLES * (ABNORMAL) Differential, Automated (02/20/2022 4:29 AM EST) Neutrophil % 71.7 % [facility] Neutrophil Absolute 7.04(H) 1.70 - 6.10 x10(3)/mc L [facility] Lymph % 15.7 % [facility] Lymphocytes Abs 1.5 0.9 - 3.2 x10(3)/mc L [facility] Monocyte % 11.9 % [facility] Monocyte Abs 1.2(H) 0.3 - 0.9 x10(3)/mc L [facility] Eos % 0.2 % [facility] Eosinophils Abs 0.0 0.0 - 0.4 x10(3)/mc L [facility] Basophil % 0.3 % [facility] Baso Absolute 0.0 0.0 - 0.1 x10(3)/mc L [facility] Immature Gran % 0.20 % [facility] Comment: Immature granulocytes(IG's)percentage and absolute count will include metamyelocytes, myelocytes, and promyelocytes. Blood smears from CBCs yielding IG's will be scanned manually for concordance. If this scan disagrees with the automated IG or if promyelocytes are noted, a manual differential will be performed. Immature Gran Absolute 0.02 0.00 - 0.04 x10(3)/mc L [facility] Blood 02/20/2022 4:29 AM EST 02/20/2022 4:47 AM EST Narrative Resulting Agency Comment Spec In Lab Sarah Barnes MD HEMATOLOGY ORDERABLE S [facility] [place] [address] * (ABNORMAL) Hemogram (02/20/2022 4:29 AM EST) White Blood Cell 9.8(H) 4.0 - 9.5 x10(3)/mc L [facility] Red Blood Cell 3.80(L) 4.58 - 5.54 x10(6)/mc L [facility] Hemoglobin 10.6(L) 13.7 - 16.5 g/dL [facility] Hematocrit 31.6(L) 40.5 - 48.5 % [facility] Mean Cell Volume 83.2 82.9 - 93.1 fL [facility] Mean Cell Hemoglobin 27.9 27.5 - 32.1 pg [facility] Mean Cell Hemoglobin Concentration 33.5 32.0 - 35.7 g/dL [facility] Platelet 295 145 - 357 x10(3)/mc L [facility] RDW Standard Deviation 42.9 36.0 - 45.0 fL [facility] RDW coefficient of variation 14.0(H) 11.4 - 13.8 % [facility] Mean Platelet Volume 9.2 7.6 - 12.9 fL [facility] NRBC% auto 0.0 % [facility] NRBC Absolute 0.000 0.000 - 0.000 x10(3)/mc L [facility] Blood 02/20/2022 4:29 AM EST 02/20/2022 4:47 AM EST Narrative Resulting Agency Comment Spec In Lab Sarah Barnes MD HEMATOLOGY ORDERABLE S [facility] [address] * Magnesium (02/20/2022 4:29 AM EST) Magnesium 0.87 0.69 - 1.07 mmol/L [facility] Blood 02/20/2022 4:29 AM EST 02/20/2022 4:47 AM EST Narrative Resulting Agency Comment Spec In Lab Sarah Barnes MD CHEMISTRY ORDERABLES [facility] [place] [address] * (ABNORMAL) BMP w/fasting Glucose (02/20/2022 4:29 AM EST) Glucose Fasting 108(H) 65 - 99 mg/dL [facility] Comment: ?Fasting* Glucose Interpretive Criteria Normal [...] of Diabetes Mellitus, Position Statement from the [place] [employer]. ??Diabetes Care, Volume 33, Supplement 1, Mar 2009 Blood Urea Nitrogen 20 10 - 20 mg/dL [facility] Creatinine 1.01 0.80 - 1.50 mg/dL [facility] Sodium 137 135 - 145 mmol/L [facility] Potassium 3.9 3.5 - 5.0 mmol/L [facility] Comment: Please note: ??Patients with WBC >100,000 may have falsely elevated Potassium levels. ??For accurate Potassium quantification in these patients send serum separator tube (gold top) for subsequent determinations. ??Contact the Clinical Chemistry Laboratory if there are any questions. Chloride 103 98 - 107 mmol/L [facility] Carbon Dioxide 23 22 - 31 mmol/L [facility] Anion Gap 11 5 - 15 mmol/L [facility] Calcium 8.7 8.5 - 10.5 mg/dL [facility] Est Glomerular Filtration Rate 79 >=60 mL/min/1. 73 m?? [facility] Comment: This [...] Barnes MD CHEMISTRY ORDERABLES Performing Organization Address [facility] Co de Phone Number [facility] [place] [address] * Heparin (unfractionated) Level (02/19/2022 12:35 PM EST) UF Heparin 0.22 IU/mL [facility] Comment: Heparin (anti-Xa) levels [...] MD HEMATOLOGY ORDERABLE S Performing Organization Address [facility] Co de Phone Number [facility] [place] [address] * EKG 12 Lead (02/19/2022 10:55 AM EST) Ventricular rate 121 BPM MUSE SYSTEM QRS Duration 108 ms MUSE SYSTEM Q-T Interval 326 ms MUSE SYSTEM QTC Calculated (Bezet) 462 ms MUSE SYSTEM Calculated R [place] 78 degrees MUSE SYSTEM Calculated T [place] -112 degrees MUSE SYSTEM INTERPRETATION Atrial fibrillation with rapid ventricular response Minimal voltage criteria for LVH, may be normal variant ( Leoma product ) Nonspecific T wave abnormality Abnormal [...] Garcia MD ECG ORDERABLES Performing Organization Address [facility] Phone Number MUSE SYSTEM * EKG 12 Lead (02/19/2022 9:38 AM EST) Ventricular rate 78 BPM MUSE SYSTEM QRS Duration 98 ms MUSE SYSTEM Q-T Interval 382 ms MUSE SYSTEM QTC Calculated (Bezet) 435 ms MUSE SYSTEM Calculated R [place] 90 degrees MUSE SYSTEM Calculated T [place] 72 degrees MUSE SYSTEM INTERPRETATION Likely Normal sinus rhythm with frequent Premature atrial complexes Rightward axis Abnormal ECG When compared with ECG of 19-FEB-2022 06:14, (unconfirmed ) Patient is now in sinus rhythm Vent. rate has decreased BY ??66 BPM T wave inversion now evident in Anterior leads Confirmed by fellow MD Nielsen Daniel ([id number]) on 02/19/2022 10:47:28 AM Confirmed by MD Corbett Eric ([id number]) on 02/20/2022 9:04:52 AM MUSE SYSTEM 02/19/2022 9:38 AM EST 02/20/2022 9:04 AM EST Sarah Barnes MD ECG ORDERABLES Performing Organization Address [facility] Co nc Phone Number MUSE SYSTEM * EKG 12 Lead (02/19/2022 6:14 AM EST) Ventricular rate 144 BPM MUSE SYSTEM Atrial Rate 300 BPM MUSE SYSTEM QRS Duration 90 ms MUSE SYSTEM Q-T Interval 332 ms MUSE SYSTEM QTC Calculated (Bezet) 514 ms MUSE SYSTEM Calculated R [place] 71 degrees MUSE SYSTEM Calculated T [place] -130 degrees MUSE SYSTEM INTERPRETATION Atrial flutter with variable A-V block Minimal voltage criteria for LVH, may be normal variant ( Yash product ) Abnormal ECG When compared with ECG of 19-FEB-2022 01:17, (unconfirmed) No significant change was found Confirmed by fellow MD Morales, Ramon ([id number]) on 02/19/2022 10:45:05 AM Confirmed by MD Aric, Emre ([id number]) on 02/20/2022 9:04:43 AM MUSE SYSTEM 02/19/2022 [...] who have questions please contact the health nursing care partner that requested your imaging first. ? Electronically signed by: Sheeba Woods MD, [facility] ([phone]), at 02/19/2022 6:55 AM Narrative 02/19/2022 6:55 [...] patients who have questions please contactthe health nursing care partner that requested your imaging first. Ramon Garcia MD IMG DX ORDERABLES * Hepatic Function Panel (02/19/2022 4:01 AM EST) Protein, Total 6.7 6.1 - 8.0 g/dL [facility] Albumin 3.3 3.2 - 5.2 g/dL [facility] Aspartate Aminotransferase Not Perf 0 - 39 [facility] Comment: Called by: FRANCISCO, Read back by: Naomie Monteiro, Date/Time:02/19/22 11:59. Unable to quantitate due to sample hemolysis. ??Sample redraw suggested. Alanine Aminotransferase 13 0 - 55 unit/L [facility] Alkaline Phosphatase 72 40 - 130 unit/L [facility] Bilirubin, Total 0.4 0.2 - 1.3 mg/dL [facility] Bilirubin, Direct 0.1 0.0 - 0.3 mg/dL [facility] Blood Venous Draw / Unknown 02/19/2022 4:01 AM EST 02/19/2022 5:01 AM EST Narrative Resulting Agency Comment Spec In Lab Rosalie WILSON CHEMISTRY ORDER [place] [facility] [place] [address] * (ABNORMAL) Differential, Automated (02/19/2022 4:01 AM EST) Neutrophil % 70.0 % [facility] Neutrophil Absolute 7.63(H) 1.70 - 6.10 x10(3)/mc L [facility] Lymph % 17.6 % [facility] Lymphocytes Abs 1.9 0.9 - 3.2 x10(3)/mc L [facility] Monocyte % 11.2 % [facility] Monocyte Abs 1.2(H) 0.3 - 0.9 x10(3)/mc L [facility] Eos % 0.4 % [facility] Eosinophils Abs 0.0 0.0 - 0.4 x10(3)/mc L [facility] Basophil % 0.4 % [facility] Baso Absolute 0.0 0.0 - 0.1 x10(3)/mc L [facility] Immature Gran % 0.40 % [facility] Comment: Immature granulocytes(IG's)percentage and absolute count will include metamyelocytes, myelocytes, and promyelocytes. Blood smears from CBCs yielding IG's will be scanned manually for concordance. If this scan disagrees with the automated IG or if promyelocytes are noted, a manual differential will be performed. Immature Gran Absolute 0.04 0.00 - 0.04 x10(3)/mc L [facility] Blood 02/19/2022 4:01 AM EST 02/19/2022 5:00 AM EST Narrative Resulting Agency Comment Spec In Lab Sarah Barnes MD HEMATOLOGY ORDERABLE S Performing Organization Address City/[facility]/ZIP Co de Phone Number [facility] [place] [address] * (ABNORMAL) Hemogram (02/19/2022 4:01 AM EST) White Blood Cell 10.9(H) 4.0 - 9.5 x10(3)/mc L [facility] Red Blood Cell 4.19(L) 4.58 - 5.54 x10(6)/mc L [facility] Hemoglobin 11.7(L) 13.7 - 16.5 g/dL [facility] Hematocrit 35.4(L) 40.5 - 48.5 % [facility] Mean Cell Volume 84.5 82.9 - 93.1 fL [facility] Mean Cell Hemoglobin 27.9 27.5 - 32.1 pg [facility] Mean Cell Hemoglobin Concentration 33.1 32.0 - 35.7 g/dL [facility] Platelet 279 145 - 357 x10(3)/mc L [facility] RDW Standard Deviation 43.1 36.0 - 45.0 fL [facility] RDW coefficient of variation 14.0(H) 11.4 - 13.8 % [facility] Mean Platelet Volume 10.1 7.6 - 12.9 fL [facility] NRBC% auto 0.0 % [facility] NRBC Absolute 0.000 0.000 - 0.000 x10(3)/mc L [facility] Blood 02/19/2022 4:01 AM EST 02/19/2022 5:00 AM EST Narrative Resulting Agency Comment Spec In Lab Sarah Barnes MD HEMATOLOGY ORDERABLE S Performing Organization Address City/[facility]/ZIP Co de Phone Number [facility] [place] [address] * Heparin (unfractionated) Level (02/19/2022 4:01 AM EST) Pathologist [facility] UF Heparin 0.19 IU/mL [facility] Comment: Specimen drawn more than one [...] Lab Sarah Barnes MD HEMATOLOGY ORDERABLE S [facility] [place] [address] * Magnesium (02/19/2022 4:01 AM EST) [facility] Magnesium 0.82 0.69 - 1.07 mmol/L [facility] Blood 02/19/2022 4:01 AM EST 02/19/2022 5:00 AM EST Narrative Resulting Agency Comment Spec In Lab Sarah Barnes MD CHEMISTRY ORDERABLES [facility] [place] [address] * BMP w/fasting Glucose (02/19/2022 4:01 AM EST) Pathologist [facility] Glucose Fasting 96 65 - 99 mg/dL [facility] Comment: ?Fasting* Glucose Interpretive Criteria Normal [...] of Diabetes Mellitus, Position Statement from the [place] [employer]. ??Diabetes Care, Volume 33, Supplement 1, Mar 2009 Blood Urea Nitrogen 19 10 - 20 mg/dL [facility] Creatinine 1.07 0.80 - 1.50 mg/dL [facility] Sodium 137 135 - 145 mmol/L [facility] Potassium 4.3 3.5 - 5.0 mmol/L [facility] Comment: Please note: ??Patients with WBC >100,000 may have falsely elevated Potassium levels. ??For accurate Potassium quantification in these patients send serum separator tube (gold top) for subsequent determinations. ??Contact the Clinical Chemistry Laboratory if there are any questions. Chloride 101 98 - 107 mmol/L [facility] Carbon Dioxide 23 22 - 31 mmol/L [facility] Anion Gap 13 5 - 15 mmol/L [facility] Calcium 9.4 8.5 - 10.5 mg/dL [facility] Est Glomerular Filtration Rate 74 >=60 mL/min/1. 73 m?? [facility] Comment: This patient's estimated [...] Narrative Resulting Agency Comment Spec In Lab Ikram Ullah MD CHEMISTRY ORDERABLES [facility] [place] [address] * EKG 12 Lead (02/19/2022 1:17 AM EST) Ventricular rate 137 BPM MUSE SYSTEM Atrial Rate 300 BPM MUSE SYSTEM QRS Duration 96 ms MUSE SYSTEM Q-T Interval 260 ms MUSE SYSTEM QTC Calculated (Bezet) 392 ms MUSE SYSTEM Calculated P [place] 116 degrees MUSE SYSTEM Calculated R [place] 83 degrees MUSE SYSTEM Calculated T [place] -124 degrees MUSE SYSTEM INTERPRETATION Atrial flutter with variable A-V block Nonspecific ST and T wave abnormality Abnormal ECG When compared with ECG of 18-FEB-2022 06:25, No significant change was found Confirmed by fellow MD Morales, Ramon ([id number]) on 02/19/2022 10:44:39 AM Confirmed by MD Aric, Emre ([id number]) on 02/20/2022 9:04:38 AM MUSE SYSTEM 02/19/2022 1:17 AM EST 02/20/2022 9:04 AM EST Sarah Barnes MD ECG ORDERABLES Performing Organization Address City/[facility] Co de Phone Number MUSE SYSTEM * Heparin (unfractionated) Level (02/18/2022 7:08 PM EST) UF Heparin 0.06 IU/mL [facility] Comment: Heparin (anti-Xa) levels [...] MD HEMATOLOGY ORDERABLE S Performing Organization Address City/[facility]/ZIP Co de Phone Number [facility] [place] [address] * Heparin (unfractionated) Level (02/18/2022 11:26 AM EST) UF Heparin 0.16 IU/mL [facility] Comment: Heparin (anti-Xa) levels should be [...] MD HEMATOLOGY ORDERABLE S Performing Organization Address [facility] Co de Phone Number [facility] [place] [address] * ECHO COMPLETE W CONTRAST (02/18/2022 10:31 AM EST) EF 52 HEARTLAB SYSTEM Anatomical Region Laterality Modality Cardiac Other 02/18/2022 9:15 AM EST Narrative 02/18/2022 11:39 AM EST ? Version 2 ? Echocardiogram Report Name: RAJAN FAULKNER ?Study Date: 02/18/2022 09:15 AMBP: 126/62 mmHg ? [facility] : 1950 ? Height: 173 cm ? Account: [id number] Age: 71 yrs ? Weight: 73 kg Gender: Male ?BSA: 1.9 m2 Ordering Physician: SARAH BARNES Performed By: CONNOR Rankin Reason For Study: Atrial Flutter Exam Location: [facility]. Interpretation Summary Patient is in 2:1 atrial flutter. Left ventricle is normal in size with mild hypertrophy and sigmoid septum. There is probably normal global systolic function; cannot accurately quantify due to signficant tachyarrhythmia. Right ventricle is normal in size and function. Normal left atrial size. No hemodynamically significant valve disease. IVC is non-dilated and non-plethoric. Procedure Complete-[id number]. Image enhancement Optison was used for left [...] Date: 209:15 AMBP: 126/62 mmHg Patient Location: [address] : 1950 Height: 173 cm Account: [id number] Age: 71 yrs Weight: 73 kg Gender: Male BSA: 1.9 m2 Ordering Physician: SARAH BARNES Performed By: CONNOR Rankin Reason For Study: Atrial Flutter Exam Location: [facility]. Interpretation Summary Patient is in 2:1 atrial flutter. Left ventricle is normal in size with mild hypertrophy and sigmoid septum.There is probably normal global systolic function; cannot accurately quantifydue to signficant tachyarrhythmia. Right ventricle is normal in size and function. Normal left atrial size. No hemodynamically significant valve disease. IVC is non-dilated and non-plethoric. Procedure Complete-[id number]. Image enhancement Optison was used for left [...] (Bezet) 549 ms MUSE SYSTEM Calculated P [place] 89 degrees MUSE SYSTEM Calculated R [place] 73 degrees MUSE SYSTEM Calculated T [place] -131 degrees MUSE SYSTEM INTERPRETATION Atrial flutter with 2:1 A-V conduction Minimal voltage criteria for LVH, may be normal variant Abnormal ECG When compared with ECG of 17-FEB-2022 13:18, (unconfirmed) No significant change was found Confirmed by MD Radha, Ramon ([id number]) on 02/18/2022 1:36:02 PM MUSE SYSTEM 02/18/2022 [...] who have questions please contact the health nursing care partner that requested your imaging first. ? Electronically signed by: Sheeba Woods MD, [facility] ([phone]), at 02/18/2022 6:41 AM Narrative 02/18/2022 6:41 [...] patients who have questions please contactthe health nursing care partner that requested your imaging first. Ramon Garcia MD IMG DX ORDERABLES * (ABNORMAL) Differential, Automated (02/18/2022 4:13 AM EST) Neutrophil % 69.7 % [facility] Neutrophil Absolute 6.60(H) 1.70 - 6.10 x10(3)/mc L [facility] Lymph % 18.0 % [facility] Lymphocytes Abs 1.7 0.9 - 3.2 x10(3)/mc L [facility] Monocyte % 11.2 % [facility] Monocyte Abs 1.1(H) 0.3 - 0.9 x10(3)/mc L [facility] Eos % 0.3 % [facility] Eosinophils Abs 0.0 0.0 - 0.4 x10(3)/mc L [facility] Basophil % 0.5 % [facility] Baso Absolute 0.0 0.0 - 0.1 x10(3)/mc L [facility] Immature Gran % 0.30 % [facility] Comment: Immature granulocytes(IG's)percentage and absolute count will include metamyelocytes, myelocytes, and promyelocytes. Blood smears from CBCs yielding IG's will be scanned manually for concordance. If this scan disagrees with the automated IG or if promyelocytes are noted, a manual differential will be performed. Immature Gran Absolute 0.03 0.00 - 0.04 x10(3)/mc L [facility] Blood 02/18/2022 4:13 AM EST 02/18/2022 4:29 AM EST Narrative Resulting Agency Comment Spec In Lab Sarah Barnes MD HEMATOLOGY ORDERABLE S [facility] [place] [address] * (ABNORMAL) Hemogram (02/18/2022 4:13 AM EST) White Blood Cell 9.5 4.0 - 9.5 x10(3)/mc L [facility] Red Blood Cell 4.18(L) 4.58 - 5.54 x10(6)/mc L [facility] Hemoglobin 11.7(L) 13.7 - 16.5 g/dL [facility] Hematocrit 35.8(L) 40.5 - 48.5 % [facility] Mean Cell Volume 85.6 82.9 - 93.1 fL [facility] Mean Cell Hemoglobin 28.0 27.5 - 32.1 pg [facility] Mean Cell Hemoglobin Concentration 32.7 32.0 - 35.7 g/dL [facility] Platelet 280 145 - 357 x10(3)/mc L [facility] RDW Standard Deviation 43.3 36.0 - 45.0 fL [facility] RDW coefficient of variation 14.0(H) 11.4 - 13.8 % [facility] Mean Platelet Volume 9.4 7.6 - 12.9 fL [facility] NRBC% auto 0.0 % [facility] NRBC Absolute 0.000 0.000 - 0.000 x10(3)/ L [facility] Blood 02/18/2022 4:13 AM EST 02/18/2022 4:29 AM EST Narrative Resulting Agency Comment Spec In Lab Sarah Barnes MD HEMATOLOGY ORDERABLE S Performing Organization Address City/State/[facility] Co de Phone Number [facility] [place] [address] * Magnesium (02/18/2022 4:13 AM EST) Magnesium 0.77 0.69 - 1.07 mmol/L [facility] Blood 02/18/2022 4:13 AM EST 02/18/2022 4:29 AM EST Narrative Resulting Agency Comment Spec In Lab Sarah Barnes MD CHEMISTRY ORDERABLES [facility] [place] [place] [address] * (ABNORMAL) BMP w/fasting Glucose (02/18/2022 4:13 AM EST) Glucose Fasting 83 65 - 99 mg/dL [facility] Comment: ?Fasting* Glucose Interpretive Criteria Normal [...] of Diabetes Mellitus, Position Statement from the [place] [employer]. ??Diabetes Care, Volume 33, Supplement 1, Mar 2009 Blood Urea Nitrogen 15 10 - 20 mg/dL [facility] Creatinine 0.96 0.80 - 1.50 mg/dL [facility] Sodium 135 135 - 145 mmol/L [facility] Potassium 4.2 3.5 - 5.0 mmol/L [facility] Comment: Please note: ??Patients with WBC >100,000 may have falsely elevated Potassium levels. ??For accurate Potassium quantification in these patients send serum separator tube (gold top) for subsequent determinations. ??Contact the Clinical Chemistry Laboratory if there are any questions. Chloride 103 98 - 107 mmol/L [facility] Carbon Dioxide 20(L) 22 - 31 mmol/L [facility] Anion Gap 12 5 - 15 mmol/L [facility] Calcium 9.3 8.5 - 10.5 mg/dL [facility] Est Glomerular Filtration Rate 84 >=60 mL/min/1. 73 m?? [facility] Comment: This patient's estimated [...] Barnes MD CHEMISTRY ORDERABLES Performing Organization Address [facility]/ZIP Co de Phone Number [facility] [place] [address] * Heparin (unfractionated) Level (02/18/2022 4:13 AM EST) UF Heparin 0.12 IU/mL [facility] Comment: Heparin (anti-Xa) levels [...] MD HEMATOLOGY ORDERABLE S Performing Organization Address [facility] Co de Phone Number [facility] [address] * US Cardiac (POCUS) (02/17/2022 4:51 PM [...] was done:: Not applicable Results:: CPT Code 64298:Limited Basic Cardiac (76897) Electronically Signed by the following Performing: ?on [...] was done:: Not applicable Results:: CPT Code 91610:Limited Basic Cardiac (20120) Electronically Signed by the following Performing: on [...] who have questions please contact the health nursing care partner that requested your imaging first. ? Electronically signed by: Matias Mata MD, [facility] ([phone]), at 02/17/2022 2:16 PM Narrative 02/17/2022 2:16 [...] patients who have questions please contactthe health nursing care partner that requested your imaging first. Sommer Pryor MD IMG DX ORDERABLES * TSH (02/17/2022 1:50 PM EST) Pathologist [facility] Thyroid Stimulating Hormone 1.36 0.27 - 4.20 mcIU/mL [facility] Comment: Reference Interval (mcIU/mL): Females: ??First Trimester: 0.23-3.88 ??Second Trimester: 0.22-3.90 ??Third Trimester: 0.44-4.66 Blood Venous Draw / Unknown 02/17/2022 1:50 PM EST 02/17/2022 1:59 PM EST Narrative Resulting Agency Comment Spec In Lab Sarah Barnes MD CHEMISTRY ORDERABLES [facility] [address] * (ABNORMAL) pro-Brain Natriuretic Peptide (02/17/2022 1:50 PM EST) NT-proBNP 3,033(H) <=124 pg/mL [facility] Blood Venous Draw / Unknown 02/17/2022 1:50 PM EST 02/17/2022 1:59 PM EST Narrative Resulting Agency Comment Spec In Lab Sarah Barnes MD CHEMISTRY [place] [address] * (ABNORMAL) Differential, Automated (02/17/2022 1:50 PM EST) Neutrophil % 74.6 % [facility] Neutrophil Absolute 7.60(H) 1.70 - 6.10 x10(3)/mc L [facility] Lymph % 13.6 % [facility] Lymphocytes Abs 1.4 0.9 - 3.2 x10(3)/mc L [facility] Monocyte % 10.8 % [facility] Monocyte Abs 1.1(H) 0.3 - 0.9 x10(3)/mc L [facility] Eos % 0.3 % [facility] Eosinophils Abs 0.0 0.0 - 0.4 x10(3)/mc L [facility] Basophil % 0.3 % [facility] Baso Absolute 0.0 0.0 - 0.1 x10(3)/mc L [facility] Immature Gran % 0.40 % [facility] Comment: Immature granulocytes(IG's)percentage and absolute count will include metamyelocytes, myelocytes, and promyelocytes. Blood smears from CBCs yielding IG's will be scanned manually for concordance. If this scan disagrees with the automated IG or if promyelocytes are noted, a manual differential will be performed. Immature Gran Absolute 0.04 0.00 - 0.04 x10(3)/mc L [facility] Blood 02/17/2022 1:50 PM EST 02/17/2022 1:58 PM EST Narrative Resulting Agency Comment Spec In Lab Michelle Contreras MD HEMATOLOGY ORDERABLE S Performing Organization Address City/[facility]/ZIP [place] [address] * (ABNORMAL) Hemogram (02/17/2022 1:50 PM EST) White Blood Cell 10.2(H) 4.0 - 9.5 x10(3)/mc L [facility] Red Blood Cell 3.99(L) 4.58 - 5.54 x10(6)/mc L [facility] Hemoglobin 11.0(L) 13.7 - 16.5 g/dL [facility] Hematocrit 33.6(L) 40.5 - 48.5 % [facility] Mean Cell Volume 84.2 82.9 - 93.1 fL [facility] Mean Cell Hemoglobin 27.6 27.5 - 32.1 pg [facility] Mean Cell Hemoglobin Concentration 32.7 32.0 - 35.7 g/dL [facility] Platelet 314 145 - 357 x10(3)/mc L [facility] RDW Standard Deviation 43.4 36.0 - 45.0 fL [facility] RDW coefficient of variation 14.0(H) 11.4 - 13.8 % [facility] Mean Platelet Volume 9.2 7.6 - 12.9 fL [facility] NRBC% auto 0.0 % [facility] NRBC Absolute 0.000 0.000 - 0.000 x10(3)/ L [facility] Blood 02/17/2022 1:50 PM EST 02/17/2022 1:58 PM EST Narrative Resulting Agency Comment Spec In Lab Michelle Contreras MD HEMATOLOGY ORDERABLE S [facility] [place] [address] * Magnesium (02/17/2022 1:50 PM EST) Magnesium 0.74 0.69 - 1.07 mmol/L [facility] Blood 02/17/2022 1:50 PM EST 02/17/2022 1:58 PM EST Narrative Resulting Agency Comment Spec In Lab Sommer Pryor MD CHEMISTRY ORDERABLE S [facility] [place] [address] * Phosphorus (02/17/2022 1:50 PM EST) Phosphorus 2.8 2.5 - 4.5 mg/dL [facility] Blood 02/17/2022 1:50 PM EST 02/17/2022 1:58 PM EST Narrative Resulting Agency Comment Spec In Lab Sommer Pryor MD CHEMISTRY ORDERABLE S [facility] [address] * Comprehensive metabolic panel (non-fasting) (02/17/2022 1:50 PM EST) Glucose 95 65 - 199 mg/dL [facility] Comment:Diabetes: >=200 mg/d L plus symptoms Blood Urea Nitrogen 16 10 - 20 mg/dL [facility] Creatinine 1.04 0.80 - 1.50 mg/dL [facility] Sodium 138 135 - 145 mmol/L [facility] Potassium 4.2 3.5 - 5.0 mmol/L [facility] Comment: Please note: ??Patients with WBC >100,000 may have falsely elevated Potassium levels. ??For accurate Potassium quantification in these patients send serum separator tube (gold top) for subsequent determinations. ??Contact the Clinical Chemistry Laboratory if there are any questions. Chloride 104 98 - 107 mmol/L [facility] Carbon Dioxide 23 22 - 31 mmol/L [facility] Anion Gap 11 5 - 15 mmol/L [facility] Calcium 9.6 8.5 - 10.5 mg/dL [facility] Protein, Total 6.8 6.1 - 8.0 g/dL [facility] Albumin 3.5 3.2 - 5.2 g/dL [facility] Aspartate Aminotransferase 18 0 - 39 unit/L [facility] Alanine Aminotransferase 12 0 - 55 unit/L [facility] Alkaline Phosphatase 67 40 - 130 unit/L [facility] Bilirubin, Total 0.3 0.2 - 1.3 mg/dL [facility] Est Glomerular Filtration Rate 76 >=60 mL/min/1. 73 m?? [facility] Comment: This patient's estimated [...] Lab Sommer Pryor MD CHEMISTRY ORDERABLE S [facility] [place] [address] * EKG 12 Lead (02/17/2022 1:18 PM EST) Ventricular rate 142 BPM MUSE SYSTEM Atrial Rate 284 BPM MUSE SYSTEM QRS Duration 96 ms MUSE SYSTEM Q-T Interval 324 ms MUSE SYSTEM QTC Calculated (Bezet) 498 ms MUSE SYSTEM Calculated P [place] -101 degrees MUSE SYSTEM Calculated R [place] 75 degrees MUSE SYSTEM Calculated T [place] -88 degrees MUSE SYSTEM INTERPRETATION Atrial flutter with 2:1 A-V conduction Minimal voltage criteria for LVH, may be normal variant ( [place]oma product ) Abnormal ECG When compared with ECG of 13-FEB-2021 15:15, Atrial flutter has replaced Sinus rhythm Vent. rate has increased BY ??[address] now depressed in Inferior leads T wave inversion now evident in Inferior leads Nonspecific T wave abnormality now evident in Lateral leads Confirmed by MD Glenda, Rodger ([id number]) on 02/18/2022 4:23:20 PM MUSE SYSTEM 02/17/2022 1:18 PM EST 02/18/2022 4:23 PM EST Sommer Pryor MD ECG ORDERABLES MUSE SYSTEM documented in [...] 150 mg, Oral, DAILY, First dose on 02/18/22 [...] Routine 0852 (Given - Provider: Mk Stanford RN)2113 (Given - Provider: Nancy Fleming, CHRISTINA) 0914 (Given - Provider: Mk Stanford RN) [...] on Sat02/18/22 at 0900, Until Discontinued, Routine 0914 (Given - Provider: Naomie Monteiro [...] RN)2100 (Given - Provider: Nancy Fleming RN) 0853 (Given - Provider: Mk Stanford RN)2112 [...] Routine documented in this encounter Care Teams Blood Bank Technician Relationship Specialty Start Date End Date Tami Olivia [address] [place] [address] PCP - General Family Medicine 12/30/20 documented as of this encounter
--- OUTSIDE RECORDS SUMMARY | 2023-12-26 16:00 | XMS_ITS | Encounter Summary ---
Author Organization [facility] [place] [address] Care Team Providers Care Welt Sole Layer Name Role Phone SudhakarJacksonTami Primary Care Provider [phone] Reason for Referral * Home Health Care (Routine) - Closed Specialty Diagnoses / Procedures Referred By Bert gautam Referred To Contact Diagnoses Mass of upper lobe of left lung Gilmer Foster MD [facility] [address] Referral ID Status Reason Start Date Expiration Date V isits Requested Visits Authorized [id number] Closed Consult, Test & Treat 02/10/2022 08/09/2022 [...] DIAGNOSTIC (WRVU 2.78) Gilmer Foster MD [facility] [address] [facility] Referral ID Status Reason Start Date Expiration Date Visits Re quested Visits Authorized [id number] 1 1 Encounter Details Date Type Department Care Team (Latest Contact Info) Description 02/08/2022 10:50 AM EST - 02/10/2022 1:20 AM EST Hospital Encounter [place] [address] Gilmer Foster MD [facility] [place] [address] Pleural effusion; Squamous cell carcinoma of left [...] Hospital Course: Rajan Marquez was admitted to [facility] on 02/08/2022 via the SD. He [...] who have questions please contact the health respiratory care practitioner that requested your imaging first. Chest PA & Lateral (Generic) (Exam End: 02/10/2022 5:23 AM) Impression Enlarging left hydropneumothorax. Thank you for letting us participate in the care of this patient. If you are a health care provider and have any questions regarding this report, please contact the number below. For patients who have questions please contact the health respiratory care practitioner that requested your imaging first. Electronically signed by: Maryann Magallanes MD, [facility] ([phone]), at 02/10/2022 8:05 AM Pending Studies and [...] a nurse in the Thoracic Clinic at [phone]. After hours or on weekends or holidays please call: [phone] and ask to speak to the Thoracic [...] please call the thoracic surgery clinic at [phone]. Driving: No driving for 1 week or [...] the Thoracic Clinic or the Thoracic Surgeon bus and sys integration senior manager after hours. Please take over the [...] our office if you have any questions. [phone] Future Appointments Date Time Provider Department Center 02/10/2022 5:00 AM [facility] DX ROOM 9 MH Xray [facility] Rad General Instructions Keep the Express Mini in an upright position and make sure the tubing stays firmly attached to the end of your chest tube. If it becomes disconnected you will need to reconnect it immediately and tape it securely. If you cannot get it reconnected you will need to go to the Emergency Room at [facility] immediately. Be sure to not let [...] contact the Thoracic Surgery office promptly at [phone]. Opioid PDMP 02/13/2021 [place] PDMP Query Date [...] Expires XR Chest PA & Lateral (Generic) [[id number] Custom] 02/23/2022 08/25/2022 Process Instructions: Scheduling Instructions: Questions: Reason for exam and clinical history: s/p left VATS pleural biopsy Clinical information / bryan questions for radiologist: ?interval change Where will study be performed?: [facility] Radiology Portable exam?: Stat read required?: Date of injury if applicable: Requested Time: XR Chest PA & Lateral (Generic) [[id number] Custom] 02/24/2022 (Approximate) 08/26/2022 Process Instructions: Scheduling Instructions: Questions: Reason for exam and clinical history: s/p left vats pleural biopsy Clinical information / bryan questions for radiologist: eval for ptx and or effusion Where will study be performed?: [facility] Radiology Portable exam?: Stat read required?: Date of injury if applicable: Requested Time: Referral to Home Health [REF34 Custom] As directed Process Instructions: If no progress note charted, please enter Clinical details in comments. Scheduling Instructions: Comments: Please evaluate Rajan Marquez for admission to Home Health. [address] [facility] [address] Phone Number: mobile [phone] Date of : 1950 Inpatient DOCUMENTATION FOR VNA SERVICES (INCLUDING THOSE PATIENTS WITH MEDICARE COVERAGE REQUIRING HOME VNA SERVICES AND/OR HOSPICE SERVICES) PATIENT'S LOCATION: Rajan [address]ravo [facility] [address] [place] [phone] Signing Agent's Name: self/family In discussion with the attending physician, it is certified that this patient is under their care and that they, or a Nurse Practitioner,Clinical Nurse specialist or Physician Paper Products Printer who is working directly with them, had [...] Emergency Room or the Emergency Room at [facility] immediately. Check the Atrium Express Mini [...] your scheduled appointment. HOME HEALTH CARE AGENCY: [facility] [address] [place] [address] PHONE: [phone] FAX: [phone] Start of care: within 24 to 48 hours of discharge Please note that any additional orders needs or changes will need to be obtained from this patient's PCP: Tami Olivia [address] / [place] [address] All VNA agencies which cover the area of patient's residence have been reviewed, either verbally crow writing, and patient/family have chosen the home health care agency noted Questions: Disciplines Requested: Nursing Provider Contact Information: Primary Care Provider: Tami Olivia [phone] Discharge References/Attachments: Discharge References/Attachments None For questions regarding this document or issues relating to this hospitalization on the Thoracic Surgery Service, please contact Dr. Foster's office at . Signed: STEVE Black 02/10/2022 Thoracic Surgery [facility] CC: PCP: Tami Olivia Referring: Tami Olivia [address] [place] [address] documented in this encounter Discharge Instructions * [...] to go to the Emergency Room at [facility] immediately. Be sure to not let [...] and contact Dr. Gilmer Cardozo office at [phone] if the amount increases by [phone] cc [...] contact the Thoracic Surgery office promptly at [phone]. * Patient Instructions* Camilo Stevenson PA - 02/09/2022 11:12 AM EST Call if you have a fever of greater than 101 degrees, shaking chills, develop redness or drainage from your incision site(s), or if you have questions. During normal business hours, Saturday- Saturday 8:00 a.m.-5:00 p.m., please call to speak to a nurse in the Thoracic Clinic at [phone]. After hours or on weekends or holidays please call: [phone] and ask to speak to the Thoracic [...] please call the thoracic surgery clinic at [phone]. Driving: No driving for 1 week or [...] the Thoracic Clinic or the Thoracic Surgeon bus and sys integration senior manager after hours. Please take over the [...] our office if you have any questions. [phone] Future Appointments Date Time Provider Department Center 02/10/2022 5:00 AM [facility] DX ROOM 9 Xray [facility] Rad documented in this encounter Medications [...] Paredes RN - 02/10/2022 1:16 PM EST [facility] Short Stay Unit Discharge Note All [...] monitoring system. Awaiting lunch meal. WCM. * Kenycigeorgette, Bi Horton MD - 02/09/2022 8:53 AM EST [facility] Department of Thoracic Surgery Inpatient Progress Note Patient Name: Rajan Marquez Patient : 1950 Patient [facility] Attending Surgeon: GILMER FOSTER ID: Rajan Marquez [...] Admission (Current) from 02/08/2022 in PACU at [facility] OfficeVisit from 01/29/2022 in Thoracic Surgery at [facility] Weight 75.8 kg (167 lb) 1 02/08/2022 [...] Result Value Ref Range Surgical Pathology Report [id number] Location: OR; OR22; A The signing pathologist has (i) examined the relevant preparation(s) for the specimen(s) and (ii) rendered or confirmed the diagnosis(es). . Frozen Section FROZEN SECTION DIAGNOSIS AFS - Left pleural biopsy, for frozen section (2 blocks): Atypical cells, cannot exclude malignancy, defer to permanent. 02/08/22 13:26 Electronically signed by: Malia Lacy MD Verified: 02/08/2022 13:50 Pathologist Performed at: -[facility] Dept. of Pathology, [place] [address] Operations Clerk: Maria Ines Marrufo MD, FCAP, CLIA Certificate: [id number] This intraoperative consultation should be interpreted as [...] who have questions please contact the health respiratory care practitioner that requested your imaging first. Micro: Procedure Component Value Units Date/Time Fungus culture Pleural Fluid [[id number]] Collected: 02/08/22 125 Lab Status: Preliminary result Specimen: Pleural Fluid Updated: 02/09/22 0817 Fungus Culture No Fungus isolated to date Body Fluid Culture, Aerobic & Anaerobic Pleural Fluid [[id number]] Collected: 02/08/221253 Lab Status: Preliminary result Specimen: Pleural Fluid Updated: 02/09/22 0743 Body Fluid Culture, Aerobic [[id number]] Collected: 02/08/221253 Lab Status: Preliminary result Specimen: Pleural Fluid Updated: 02/09/22 0743 Body Fluid Culture No growth to date. [...] Baez MD 02/09/2022 Thoracic Surgery Service Pager [phone] Debbie Lou RN - 02/09/2022 8:44 AM EST 0700: [...] dressing is CDI. 0700: Report given to EXPRESS MANAGERDebbie VASQUEZ. Care assumed. * Juanita Sotomayor RN [...] Thoracentesis Left 11/08/2021 Ashley, Ramírez Ziegler MD [facility] INTERVENTIONL RAD ??? PRO BRONCHOSCOPY, DIAGNOSTIC N/A 03/29/2021 BRONCHOSCOPY, DIAGNOSTIC (WRVU 2.78) performed by Gilmer Foster MD at [facility] OR ? ? PRO INJECTION ANES AGENT &/ STEROID INTERCOSTAL NERVE SINGLE LEVEL Left 03/29/2021 NERVE BLOCK, INTERCOSTAL NERVE (WRVU 1.18) performed by Gilmer Foster MD at [facility] OR ??? PRO THORACOSCOPY SURG LOBECTOMY Left 03/29/2021 @THORACOSCOPY,SURGICAL,W\LOBECTOMY,TOTAL OR SEGMENTAL (WRVU 24.64) performed by Johana Foster MD at [facility] OR ??? PRO THORACOSCOPY WITH MEDIASTINAL AND REGIONAL LYMPHADENECTOMY 03/29/2021 @THORACOSCOPY, SURG; W/MEDIASTINAL& REGIONAL LYMPHADENECTOMY (WRVU 4.12) performed by Gilmer Foster MD at [facility] OR ??? PRO THORACOSCOPY WITH WEDGE RESECTION AND ANATOMIC LUNG RESECTN Left 03/29/2021 @THORACOSCOPY, SURG; W/DX WEDGE RESC W/ANATOMIC LUNG RESC (WRVU 3) performed by Johana Foster MD at [facility] OR MEDS: No current facility-administered [...] Nieto MD 02/08/2022 Thoracic Surgery Service Pager [phone] documented in this encounter Miscellaneous Notes * [...] information for follow-up Home Health & H[facility]ice, [place] [address] Transportation: family or friend will provide Wheelchair van/Ambulance? No Functional status prior to admission: Independent Home Environment: Others in the home: significant other. Current Living Arrangements: home/apartment/condo. Accessibility Concerns:none noted. Current Functional Ability: DME used at home: none DME Needed at Discharge: Mini atrium Patient is insured through: Primary Insurance: AAR MANAGED MEDICARE Payor: AAR MANAGED MEDICARE / Plan: AAR HMO MANAGED MEDICARE COMPLETE / Product Type: *No Producttype* / Secondary Insurance: N/A Prescription Coverage: Yes This plan was formulated with input from patient, and team. All are in agreement with plan. Natanael Sims RN, BSN CM Case Management [phone] * Care Management - Melania Salinas RN - 02/09/2022 2:26 PM EST RN/CM has reviewed with provider team. Admit: 02/08/2022 with anticipated discharge: 02/10/2022. Pt remains OBS status at this time. Pending UM review later today. Christie Salinas RN (Jonas) RN/CM - Cellphone: [phone] Pager: [phone] Covering Service RN/CM * Initial Assessments - [...] surrogate would be surrogate decision maker per [place] surrogate decision making law. (Only good for 180 days) Any patient receiving care in [place] must abide by [place] law. The hierarchy for surrogate decision making [...] (i) The agent with financial power of divorce attorney or a conservator appointed in accordance [...] Current DME: none Home Address confirmed as: [address] [place] [id number] Social & Family Supports: All names listed [...] points: Addiction likely Health/Prescription Coverage: Primary Insurance: [facility] MANAGED MEDICARE Payor: AAR MANAGED MEDICARE / [facility]: [facility] COMPLETE / Product Type: *No Producttype* / Secondary Insurance: N/A ; Prescription Coverage: Yes Preferred Pharmacy: [facility] [place], [place] - [address] [place] [phone] Annabella Status: Patient is a : No Primary Care Provider listed: Tami Olivia [phone] Patient/Caregiver Goals of Treatment: Return home with [...] are placed. Patient requests referral to : [facility] [address] [place] [address] PHONE: [phone] FAX: [phone] Expected date of discharge: 02/09/2022 vs 02/10/2022 Referral routed to the Bone Drier Operator for matching with agency/vendor and to [...] planningCecilia Salinas RN (Jonas) RN/CM - Cellphone: [phone] Pager: [phone] Covering Service RN/CM * Op Note - Gilmer Foster MD - 02/08/2022 12:40 PM EST [facility] Operative Note Patient Name: Rajan Marquez : [id number] MR#: [id number] Case Date: 02/08/2022 Surgeon: Surgeon(s) and Role: [...] tissue samples (in container) 1 Drains: 28 Upper Sorbian chest tube, left Surgical Closure: Primary Closure [...] copiously with warm normal saline. A 28 Upper Sorbian chest tube was placed through the anterior [...] 10:40 AM EST Office Visit Cardiology at [address] [place] [address] Chrissy Zepeda APRN [facility] [place] [address] Scheduled Procedures Name Priority Associated Diagnoses Date/Ti [...] TO PATHOLOGY Routine 02/08/2022 1:15 PM EST NON-ENVIRONMENTAL CONSERVATION OFFICER FINAL REPORT Routine 02/08/2022 1:10 PM EST CYTOPATHOLOGY NON-GYNECOLOGICAL Routine 02/08/2022 1:10 PM EST SURGICAL PATHOLOGY REPORT Routine 2021 1:01 PM EST SPECIMEN TO PATHOLOGY STAT 02/08/2022 1:01 PM EST IMMUNOPHENOTYPING FLOW CYTOMETRY (BLOOD) Routine 02/08/2022 12:54 PM EST FLOW CYTOMETRY REPORT Routine 02/08/2022 12:54 PM EST HC CONC. FOR INFECTIOUS AGENTS Routine 02/08/2022 12:54 PM EST HC MYCOBACTERIA CULTURE Routine 02/09/20 22 12:54 PM EST BODY FLUID CULTURE, AEROBIC Routine 02/08/2022 12:54 PM EST HC FUNGUS CULTURE, MISC SOURCE Routine 02/08/2022 12:54 PM EST Bronchoscopy, Diagnostic ([id number]) 02/08/2022 12:00 PM EST Pleural effusion Squamous [...] who have questions please contact the health respiratory care practitioner that requested your imaging first. ? Electronically signed by: Marcus Edwards MD, [facility] ([phone]), at 03/06/2022 2:27 PM Narrative 03/06/2022 2:27 [...] patients who have questions please contactthe health respiratory care practitioner that requested your imaging first. Electronically signed by: Marcus Edwards MD, [facility]([phone]), at 03/06/2022 2:27 PM Gilmer Foster MD [...] who have questions please contact the health respiratory care practitioner that requested your imaging first. ? Electronically signed by: Maryann Magallanes MD, [facility] ([phone]), at 02/10/2022 8:05 AM Narrative 02/10/2022 8:05 [...] patients who have questions please contactthe health respiratory care practitioner that requested your imaging first. Electronically signed by: Maryann Magallanes MD, [facility]([phone]), at 02/10/2022 8:05 AM Gilmer Foster MD [...] who have questions please contact the health respiratory care practitioner that requested your imaging first. ? Narrative [...] congestion. No acute bony abnormality. Procedure Note Jsoe Aaron MD - 02/08/2022 EXAMINATION: XR CHEST [...] patients who have questions please contactthe health respiratory care practitioner that requested your imaging first. Gilmer Foster MD IMG DX ORDERABLE S * Specimen to Pathology (02/08/2022 1:15 PM EST) AP Specimen 02/08/2022 1:15 PM EST 02/08/2022 1:15 PM EST Narrative [facility] - 02/08/2022 1:15 PM EST Specimen requisition ordered. ??Separate Pathology report to follow Gilmer Foster MD PATHOLOGY/CYTOLO GY ORDERABLES [facility] [place] [address] * Non-Baggage Inspector Final Report (02/08/2022 1:10 PM EST) Diagnosis Discussion [id number] ? Location: [facility]; [facility]; The signing pathologist has (i) examined the relevant preparation(s) for the specimen(s) and (ii) rendered or confirmed the diagnosis(es). . ? Non-Baggage Inspector Final DIAGNOSIS See Discussion Electronically signed by: ?Asher FLORES, Rory Swann Verified: ??02/10/2022 17:36 ??Cytopathologis t Performed at: ??-[facility] Dept. of Pathology, [place] [address] Operations Clerk: Maria Ines Marrufo MD, AP, ??CLIA Certificate: [id number] DISCUSSION Pleural fluid: left (thoracentesis) - Predominantly [...] Block 1. 02/10/2022 5:36 PM EST [facility] LEFT PLEURAL FLUID / Unknown 02/08/2022 1:10 PM EST 02/08/2022 1:10 PM EST Gilmer Foster MD PATHOLOGY/CYTOLO GY ORDERABLES Performing Organization Address [facility] Co de Phone Number [facility] [place] [address] * Cytopathology Non-Gynecological (02/08/2022 1:10 PM EST) AP Specimen 02/08/2022 1:10 PM EST 02/08/2022 1:10 PM EST Narrative [facility] - 02/08/2022 1:10 PM EST Specimen requisition ordered. ??Separate Pathology report to follow Gilmer Foster MD PATHOLOGY/CYTOLO GY ORDERABLES Performing Organization Address [facility]/ZIP Co de Phone Number [facility] [place] [address] * Surgical Pathology Report (02/08/2022 1:01 PM EST) Final Diagnosis [id number] ? Location: [facility]; [facility]; A The signing pathologist has (i) [...] DO Verified: ??02/16/2022 10:09 ??Pathologist Performed at: ??-[facility] Dept. of Pathology, [place] [address] Operations Clerk: Maria Ines Marrufo MD, AP, ??CLIA Certificate: [id number] DISCUSSION No malignancy is identified. ??The morphology of the small vessels appears compatible with granulation type tissue with degenerative changes. ??A vascular neoplasm was considered but appears inconsistent with the appearance. ??An infectious process is a consideration. Clinical correlation required. Gita Martínez and Regino have reviewed the case and [...] A2 ?CK20 ?Negative A2 ?CDX2 ?Negative A2 ?EBP8rdon ?Negative A2 ?Calretinin ?Rare positive cell (high [...] of soft, pink-white membranous tissue fragments. Sections/Processing: Truss Maker sections in 2 cassettes labeled B1-B2. ??sns ?Frozen Section FROZEN SECTION DIAGNOSIS AFS - Left pleural biopsy, ?? for frozen section (2 blocks): Atypical cells, cannot exclude malignancy, defer to permanent. 02/08/22 13:26 Electronically signed by: ?Malia Lacy MD Verified: ??02/08/2022 13:50 ??Pathologist Performed at: ??-[facility] Dept. of Pathology, [place] [address] Operations Clerk: Maria Ines Marrufo MD, FCAP, ??CLIA Certificate: [id number] This intraoperative consultation should be interpreted as a preliminary diagnosis pending review of the entire specimen and special studies, if any. A final Surgical Pathology report will follow this preliminary Frozen Section report(s). 02/16/2022 10:09 AM EST [facility] Frozen Specimen 02/08/2022 1 :01 PM EST 02/08/2022 1:01 PM EST Pleura 02/08/2022 1:01 PM EST 02/08/2022 1:01 PM EST Gilmer Foster MD PATHOLOGY/CYTOLO GY ORDERABLES Performing Organization Address City/[facility]/ZIP Co de Phone Number [facility] [address] [place] [address] * Specimen to Pathology (02/08/2022 1:01 PM EST) AP Specimen 02/08/2022 1:01 PM EST 02/08/2022 1:01 PM EST Narrative [facility] - 02/08/2022 1:01 PM EST Specimen requisition ordered. ??Separate Pathology report to follow Gilmer Foster MD PATHOLOGY/CYTOLO GY ORDERABLES [facility] [place] [address] * Flow Cytometry Report (02/08/2022 12:54 PM EST) Flow Cytometry Report [id number] ? Location: U; 08; A The signing pathologist has (i) examined [...] Ruddy Verified: ??02/09/2022 16:30 ??Hematopathologist Performed at: ??-[facility] Dept. of Pathology, [place] [address] Operations Clerk: Maria Ines Marrufo MD, FCAP, ??CLIA Certificate: [id number] DISCUSSION Blasts based on CD45 expression and orthogonal light scatter, are not increased. The CD19 positive B-cells have a polytypic expression of surface immunoglobulin light chain ([place]:Lambda ratio at 1.7). The T-cells are an admixture of CD4+ and CD8+ T lymphocytes (ratio of 1.6). No loss or atypical intensity distributions are seen for any nixon T antigen (CD2, 3, 4+8, 5, 7). There is no increase in JL24-wwqhxguz/CD3-ne g NK cells. Flow analysis is an ancillary study. A definite diagnosis requires correlation with the morphologic features of this process and if necessary, correlation with other ancillary studies like immunohistochemistry , enzyme cytochemistry and/or cyto/ molecular genetics. This test was developed and its performance characteristics determined by the Clinical Flow Cytometry Laboratory at [facility]. It has not been cleared or [...] high complexity clinical laboratory testing. SPECIMEN PROCESSING [id number] Cells for immunophenotypic analysis were derived from [...] but has ??recurred on each occasion. [facility] 02/08/2022 12:5 4 PM EST Gilmer Foster MD PATHOLOGY/CYTOLO GY ORDERABLES Performing Organization Address [facility] [place] [address] * Body Fluid Culture, Aerobic (02/08/2022 12:54 PM EST) Body Fluid Culture No growth [facility] Gram Stain Cytocentrifuge Gram Stain performed No Neutrophils seen. No microorganisms seen. [facility] Pleural Fluid 02/08/2022 12: 54 PM EST 02/08/2022 2:17 PM EST Comment:Pleural fluid Narrative Resulting Agency Comment Spec In Lab Gilmer Foster MD MICROBIOLOGY - G ENERAL ORDERABLES Performing Organization Address [facility] Co de Phone Number [facility] [place] [address] * Immunophenotyping Flow Cytometry (02/08/2022 12:54 PM EST) Immunophenotyping Flow See Comment [facility] Comment: When completed by the Pathologist, the Flow Cytometry Report ([id number]) will display under the Pathology Results section within [facility]. Other 02/08/2022 12:5 4 PM EST 02/08/2022 2:07 PM EST Narrative Resulting Agency Comment Spec In Lab Gilmer Foster MD HEMATOLOGY ORDER PHILOMENA Performing Organization Address City/[facility] Co de Phone Number [facility] [place] [address] * AFB culture Pleural Fluid (02/08/2022 12:54 PM EST) Acid Fast Bacilli Culture No Acid Fast Bacilli isolated If active tuberculosis is suspected, the patient should be on [employer]. Call Infection Prevention for assistance if needed. [facility] Acid Fast Stain No Acid Fast Bacilli seen [facility] Pleural Fluid 02/08/2022 12: 54 PM EST 02/08/2022 2:17 PM EST Comment:Pleural fluid Narrative Resulting Agency Comment Spec In Lab Gilmer Foster MD MICROBIOLOGY - G ENERAL ORDERABLES Performing Organization Address City/[facility] Co de Phone Number [facility] [place] [address] * Fungus culture Pleural Fluid (02/08/2022 12:54 PM EST) Fungus Culture No Fungus isolated [facility] Pleural Fluid 02/08/2022 12: 54 PM EST 02/08/2022 2:17 PM EST Comment:Pleural fluid Narrative Resulting Agency Comment Spec In Lab Gilmer Foster MD MICROBIOLOGY - G ENERAL ORDERABLES Performing Organization Address [facility] [place] [address] documented in this encounter Visit Diagnoses Diagnosis [...] subcutaneous injection 5,000 Units 5,000 Units, Subcutaneous, MFG ASSOC TO O.R., 1 dose, On Stephanie 02/08/22 [...] HOURS, First dose (after last modification) on Sat02/10/22 at 1830, Until Discontinued, Apply patch(es) for [...] 40 mg, Oral, DAILY, First dose on 02/09/22 at 0900, Until Discontinued, DO NOT CRUSH OR OPEN Given 02/10/2022 8:36 AM EST 40 mg Given 02/09/2022 8:27 AM EST 40 mg senna (Senokot) tablet 17.2 mg 17.2 mg, Oral, EVERY EVENING, First dose on 02/09/22 at 1700, Until Discontinued, Routine Given 02/09/2022 [...] 0.4 mg, Oral, DAILY, First dose on 02/09/22 at 0900, Until Discontinued, DO NOT CRUSH [...] Provider: Loreta Decker RN)2340 (Given - Provider: Elizaebt Enrique RN) 0621 (Given - Provider: Elizabet [...] injection 5,000 Units (COMPLETED) 5,000 Units, Subcutaneous, MFG ASSOC TO O.R., 1 dose, On Stephanie 02/08/22 [...] Unit) 0615 (Patch Removed - Provider: Janny Diaz, CHRISTINA) lisinopriL (Zestril) tablet 10 mg 10 mg, [...] 2046 (Given - Provider: Loreta Decker RN) 08 (Given - Provider: Debbie Pride RN)2100 (Not [...] Unit) documented in this encounter Care Teams Welt Sole Layer Relationship Specialty Start Date End Date Tami Olivia [address] [place] [address] PCP - General Family Medicine 12/30/20 documented as of this encounter
--- OUTSIDE RECORDS SUMMARY | 2023-12-26 16:00 | XMS_ITS | Encounter Summary ---
Author Organization [facility] Address [facility] [place] [address] Care Team Providers Care Compensation Business Partner Name Role Phone Tami Olivia Primary Care Provider [phone] Reason for Visit * Reason Onset Date Comments Post Procedure Call 02/12/2022 Encounter Details Date Type Department Care Team (Late st Contact Info) Description 02/12/2022 Telephone Thoracic Surgery at [facility] [place] [phone] Megan Reza, RN Post Procedure Call Social [...] 10:40 AM EST Office Visit Cardiology at [address] [address] Chrissy Zepeda APRN [facility] [place] [address] Scheduled Procedures Name Priority Associated Diagnoses Date/Ti me CARDIOVERSION-ELECTIVE (WRVU 2) atrial flutter ELECTROPHYSIOLOGY PROCEDURE Persistent atrial fibrillation CARDIOVERSION-ELECTIVE (WRVU 2) persistent atrial fibrillation TRANSESOPHAGEAL ECHOCARDIOGR AM (WRVU 2.3) persistent atrial fibrillation documented as of this encounter Visit Diagnoses Not on filedocumented in this encounter Care Teams Compensation Business Partner Relationship Specialty Start Date End Date Tami Olivia [address] [place] [address] PCP - General Family Medicine 12/30/20 documented as of this encounter
--- OUTSIDE RECORDS SUMMARY | 2023-12-26 16:01 | XMS_ITS | Encounter Summary ---
Author Organization [facility] Address [facility] [place] [address] Care Team Providers Care Finishing Department Supervisor Name Role Phone Tami Olivia Primary Care Provider [phone] Encounter Details Date Type Department Care Team (Latest Contact Info) Description 11/08/2021 10:25 AM EDT Laboratory Appointment Lab [address] [place] [phone] Squamous cell carcinoma of left lung Social [...] AM EST Office Visit Cardiology at [address] [phone] Chrissy Zepeda, TRANSITIONS MANAGER [facility] [place] [address] Scheduled Procedures Name Priority Associated Diagnoses Date/Ti [...] Cell 8.8 4.0 - 9.5 x10(3)/ L [facility] Red Blood Cell 4.28(L) 4.58 - 5.54 x10(6)/[facility] Hemoglobin 13.1(L) 13.7 - 16.5 g/dL [facility] Hematocrit 38.3(L) 40.5 - 48.5 % [facility] Mean Cell Volume 89.5 82.9 - 93.1 fL [facility] Mean Cell Hemoglobin 30.6 27.5 - 32.1 pg [facility] Mean Cell Hemoglobin Concentration 34.2 32.0 - 35.7 g/dL [facility] Platelet 287 145 - 357 x10(3)/[facility] LABORATORY RDW Standard Deviation 43.4 36.0 - 45.0 [facility] LABORATORY RDW coefficient of variation 13.2 11.4 - 13.8 % [facility] Mean Platelet Volume 9.3 7.6 - 12.9 fL [facility] NRBC% auto 0.0 % [facility] NRBC Absolute 0.000 0.000 - 0.000 x10(3)/[facility] Blood 11/08/2021 10:2 7 AM EDT 11/08/2021 10:31 AM EDT Narrative Resulting Agency Comment Spec In Lab Sloan Parker DO HEMATOLOGY ORDERABLE S [facility] [place] [address] documented in this encounter Visit Diagnoses Diagnosis Squamous cell carcinoma of left lung documented in this encounter Care Teams Finishing Department Supervisor Relationship Specialty Start Date End Date Tami Olivia [address] [place] [address] PCP - General Family Medicine 12/30/20 documented as of this encounter
--- OUTSIDE RECORDS SUMMARY | 2023-12-26 16:01 | XMS_ITS | Encounter Summary ---
Author Organization [facility] Address [facility] [place] [address] Care Team Providers Care Pvc Loader Name Role Phone SudhakarJacksonTami Primary Care Provider [phone] Reason for Referral * Diagnostic Test (Routine) - Closed Specialty Diagnoses / Procedures Referred By Bert gautam Referred To Contact Radiology Diagnoses 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 Pleural effusion Procedures IR Thoracentesis Left Gilmer Gutiérrez MD [facility] [place] [address] [place] [address] Referral ID Status Reason Start Date Expiration Date V isits Requested Visits Authorized [id number] Closed Specialty Service Requested 10/30/2021 05/02/2023 1 1 Reason for Visit * Diagnostic Test (Routine) - Closed Specialty Diagnoses / Procedures Referred By Bert gautam Referred To Contact Radiology Diagnoses 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 Pleural effusion Procedures IR Thoracentesis Left Gilmer Gutiérrez MD [facility] [place] [address] [place] [address] Referral ID Status Reason Start Date Expiration Date V isits Requested Visits Authorized [id number] Closed Specialty Service Requested 10/30/2021 05/02/2023 1 1 Encounter Details Date Type Department Care Team (Latest Contact Info) Description 11/08/2021 10:32 AM EDT - 11/08/2021 11:59 PM EDT Hospital Encounter Radiology at [facility] [place] [address] Gilmer Gutiérrez MD [facility] [place] [address] Squamous cell carcinoma of left lung; Status [...] Canela RN - 11/08/2021 12:33 PM EDT [facility] Vascular and Interventional Radiology Discharge Instructions Following [...] is during regular office hours, please call [phone]. If it is after regular office hours, or on weekends or holidays, please call [phone] and ask to speak to the Hoisting Engine Operator electronic security specialist for Interventional Radiology. Revised 09/05/16 documented in [...] w/sensor 4 times daily as needed. 12/16/2023 rivaroxaban (Xarelto) 20 mg Tablet Take [...] of : 1950 AGE: 70 y.o. Address: [address] [place] [address] Phone: [phone] (home) Mobile: Telephone Information: Referring Provider: Gilmer Gutiérrez REASON FOR VISIT: Order Questions Answers Where will study be performed? [facility] Radiology [120] What is the [...] 10:40 AM EST Office Visit Cardiology at [address] [address] Chrissy Zepeda APRN [facility] [place] [address] Scheduled Procedures Name Priority Associated Diagnoses Date/Ti [...] Status post lobectomy of lung Pleural effusion NON-MACHINE FEEDER FLOORPERSON FINAL REPORT Routine 11/08/2021 12:23 PM EDT [...] Gutiérrez MD IMG IR ORDERABLE S * Non-Airplane Refueler Final Report (11/08/2021 12:23 PM EDT) Diagnosis Discussion [id number] ? Location: [facility] The signing pathologist has (i) examined the relevant preparation(s) for the specimen(s) and (ii) rendered or confirmed the diagnosis(es). . ? Non-Airplane Refueler Final DIAGNOSIS See Discussion Electronically signed by: ?Rory Sterling MD Verified: ??11/11/2021 11:10 ??Cytopathologis t Performed at: ??-[facility] Dept. of Pathology, [place], [place] DISCUSSION Pleural fluid: left (thoracentesis) - [...] Cell Block 1. 11/11/2021 11:10 AM EDT [facility] LEFT PLEURAL FLUID / Unknown 11/08/2021 12:23 PM EDT 11/08/2021 12:23 PM EDT Gilmer Gutiérrez MD PATHOLOGY/CYTOLO GY ORDERABLES [facility] [place] [address] * Cell Count Body Fluid (11/08/2021 12:23 PM EDT) Body Fluid Source Pleural Fl M [facility] Color, Fld Yellow [facility] Appearance, Fld Clear [facility] WBC Count, Fld 455 <=499 /[facility] LABORATORY Comment: All body fluid results should always be interpreted in light of the total clinical presentation of the patient, including clinical history, data from additional tests and other appropriate information. Polymorphonuclear cells BF % 4 % [facility] Comment: Polymorphonuclear cell percent and absolute values may contain Neutrophils, Eosinophils, and Basophils. Body fluid smear will be scanned manually for concordance. Mononuclear cells BF % 451 % [facility] Comment: Mononuclear cell percent and absolute values may contain Lymphocytes and Monocytes. Body fluid smear will be scanned manually for concordance. Polymorphonuclear cells BF ABS 1 /[facility] LABORATORY Comment: Polymorphonuclear cell percent and absolute values may contain Neutrophils, Eosinophils, and Basophils. Body fluid smear will be scanned manually for concordance. Mononuclear cells BF ABS 99 /[facility] LABORATORY Comment: Mononuclear cell percent and absolute values may contain Lymphocytes and Monocytes. Body fluid smear will be scanned manually for concordance. Pleural Fluid Other / Unknown 11/08/2021 12:23 PM EDT 11/08/2021 1:33 PM EDT Narrative Resulting Agency Comment Spec In Lab Renu WILSON BODY FLUIDS AND STO OLS ORDERABLES Performing Organization Address City/[facility]/[place] [address] * Cytopathology Non-Gynecological (11/08/2021 11:09 AM EDT) AP Specimen 11/08/2021 11:0 9 AM EDT 11/08/2021 11:09 AM EDT Narrative [facility] - 11/08/2021 11:09 AM EDT Specimen requisition ordered. ??Separate Pathology report to follow Sloan Parker DO PATHOLOGY/CYTOLOGY O RDERAB[place] [address] documented in this encounter Visit Diagnoses Diagnosis [...] mg documented in this encounter Care Teams Pvc Loader Relationship Specialty Start Date End Date Tami Olivia [address] [place] [address] PCP - General Family Medicine 12/30/20 documented as of this encounter
--- OUTSIDE RECORDS SUMMARY | 2023-12-26 16:01 | XMS_ITS | Encounter Summary ---
Author Organization [facility] Address [facility] [place] [address] Care Team Providers Care Security System Technician Name Role Phone Tami Olivia Primary Care Provider Encounter Details Date Type Department Care Team (Late st Contact Info) Description 12/07/2021 Ancillary Procedure Radiology Library at [facility] [place] [place] [address] Tami Olivia [address] [place], [place] [id number] Social History Tobacco Use Types Packs/Day Years [...] 10:40 AM EST Office Visit Cardiology at [address] [place] [phone] Chrissy Zepeda APRN [facility] [place] [address] Scheduled Procedures Name Priority Associated Diagnoses Date/Ti [...] DX Chest (12/07/2021 12:00 AM EDT) Narrative [facility] - 12/16/2021 12:57 AM EDT This exam is auto-finalizing. It's purpose is for storage only. Tami Olivia [facility] FILM LIBRARY OR DERABLES Performing Organization Address City/State/[facility] Co de Phone Number [place], [place] documented in this encounter Visit Diagnoses Not on filedocumented in this encounter Care Teams Security System Technician Relationship Specialty Start Date End Date Tami Olivia [address] [place] [address] PCP - General Family Medicine 12/30/20 documented as of this encounter
--- OUTSIDE RECORDS SUMMARY | 2023-12-26 16:01 | XMS_ITS | Encounter Summary ---
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 [place] [place] [address] [facility] [place] [address] Referral ID Status Reason Start Date Expiration Date V isits Requested Visits Authorized [id number] Closed Specialty Service Requested 11/14/2021 05/15/2023 1 1 Encounter Details Date Type Department Care Team (Late st Contact Info) Description 11/14/2021 Orders Only [place] [address] [address]érrez MD [facility] [place] [address] Status post lobectomy of lung; Primary squamous [...] AM EST Office Visit Cardiology at [address] [address] [facility] [place] [address] Scheduled Procedures Name Priority Associated Diagnoses Date/Ti [...] who have questions please contact the health primary care sales representative that requested your imaging first. ? Narrative [...] patients who have questions please contactthe health primary care sales representative that requested your imaging first. Gilmer Gutiérrez MD IMG CT ORDERABLE S * Creatinine (01/29/2022 11:45 AM EST) Creatinine 1.11 0.80 - 1.50 mg/dL [facility] Est Glomerular Filtration Rate 71 >=60 mL/min/1. 73 m?? 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
--- OUTSIDE RECORDS SUMMARY | 2023-12-26 16:01 | XMS_ITS | Encounter Summary ---
Author Organization [facility] Address [facility] [place] [address] Care Team Providers Care Rail Transportation Tabeler Name Role Phone Tami Olivia Primary Care Provider [phone] Encounter Details Date Type Department Care Team (Latest Contact Info) Description 10/30/2021 1:00 PM EDT Laboratory Appointment Lab [address] [place] [phone] Squamous cell carcinoma of left lung; Status [...] 10:40 AM EST Office Visit Cardiology at [address] [phone] Chrisys Zepeda, [facility] [place] [address] Scheduled Procedures Name Priority Associated Diagnoses Date/Ti [...] EDT) Creatinine 1.01 0.80 - 1.50 mg/dL [facility] Est Glomerular Filtration Rate 80 >=60 mL/min/1. 73 m?? [facility] Comment: This patient's [...] Lab Gilmer Gutiérrez MD CHEMISTRY ORDERA JOSIE [facility] [place] [address] documented in this encounter Visit Diagnoses Diagnosis 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 Other postprocedural status documented in this encounter Care Teams Rail Transportation Tabeler Relationship Specialty Start Date End Date Tami Olivia [address] [place] [address] PCP - General Family Medicine 12/30/20 documented as of this encounter
--- OUTSIDE RECORDS SUMMARY | 2023-12-26 16:01 | XMS_ITS | Encounter Summary ---
Author Organization [facility] Address [facility] [place] [address] Care Team Providers Care Nurse Unit Manager Name Role Phone Tami Olivia Primary Care Provider [phone] Encounter Details Date Type Department Care Team (Late st Contact Info) Description 11/08/2021 Orders [place] [phone] Renu Donald PA [facility] [place] [address] Pleural effusion (Primary Dx) Social History Tobacco [...] AM EST Office Visit Cardiology at [address] [phone] Chrissy Zepeda APRN [facility] [place] [address] Scheduled Procedures Name Priority Associated Diagnoses Date/Ti me CARDIOVERSION-ELECTIVE (WRVU 2) atrial flutter ELECTROPHYSIOLOGY PROCEDURE Persistent atrial fibrillation CARDIOVERSION-ELECTIVE (WRVU 2) persistent atrial fibrillation TRANSESOPHAGEAL ECHOCARDIOGR AM (WRVU 2.3) persistent atrial fibrillation documented as of this encounter Visit Diagnoses Diagnosis Pleural effusion- Primary Unspecified pleural effusion documented in this encounter Care Teams Nurse Unit Manager Relationship Specialty Start Date End Date Tami Olivia [address] [place] [address] PCP - General Family Medicine 12/30/20 documented as of this encounter
--- OUTSIDE RECORDS SUMMARY | 2023-12-26 16:01 | XMS_ITS | Encounter Summary ---
Author Organization [facility] Address [facility] [place] [address] Care Team Providers Care Specialist Managers Name Role Phone Tami Olivia Primary Care Provider [phone] Reason for Visit * Reason Onset Date Comments Prior Authorization 04/14/2021 Molecular ca ncer testing - A covered benefit Encounter Details Date Type Department Care Team (Late st Contact Info) Description 04/14/2021 Telephone [place] [phone] Lesly Bond Prior Authorization (Molecular cancer testing [...] received an e-mail from [employer] in [employer] and [employer] ([id number]) requesting coverage review for CPT 25306 which is to be done on the patient's left lung cancer biopsy. Ordering provider is Gilmer Gutiérrez MD. Per a call to [facility] ( ), policy [id number] is an active HMO with a [place] PCP listed. [facility] is in-network. CPT 80590 is a covered benefit with no authorization needed. Ref: [id number]. I will e-mail [employer] to let her know CPT 02741 is a covered benefit. documented in this encounter Plan of Treatment Upcoming Encounters Date Type Department Care Team (Late st Contact Info) Description 01/20/2024 10:40 AM EST Office Visit Cardiology at [address] [address] Chrissy Zepeda, [facility] [place] [address] Scheduled Procedures Name Priority Associated Diagnoses Date/Ti me CARDIOVERSION-ELECTIVE (WRVU 2) atrial flutter ELECTROPHYSIOLOGY PROCEDURE Persistent atrial fibrillation CARDIOVERSION-ELECTIVE (WRVU 2) persistent atrial fibrillation TRANSESOPHAGEAL ECHOCARDIOGR AM (WRVU 2.3) persistent atrial fibrillation documented as of this encounter Visit Diagnoses Not on filedocumented in this encounter Care Teams Specialist Managers Relationship Specialty Start Date End Date Tami Olivia [address] [place] [address] PCP - General Family Medicine 12/30/20 documented as of this encounter
--- OUTSIDE RECORDS SUMMARY | 2023-12-26 16:01 | XMS_ITS | Encounter Summary ---
Author Organization [facility] Address [facility] [place] [address] Care Team Providers Care Director Mortgage Name Role Phone Tami Olivia Primary Care Provider [phone] Reason for Visit * Reason Onset Date Comments Other 04/11/2021 Encounter Details Date Type Department Care Team (Late st Contact Info) Description 04/11/2021 Telephone Thoracic Surgery at [facility] [place] [phone] Megan Reza RN Other Social History Tobacco [...] 10:40 AM EST Office Visit Cardiology at [address] [address] Chrissy Zepeda APRN [facility] [place] [address] Scheduled Procedures Name Priority Associated Diagnoses Date/Ti me CARDIOVERSION-ELECTIVE (WRVU 2) atrial flutter ELECTROPHYSIOLOGY PROCEDURE Persistent atrial fibrillation CARDIOVERSION-ELECTIVE (WRVU 2) persistent atrial fibrillation TRANSESOPHAGEAL ECHOCARDIOGR AM (WRVU 2.3) persistent atrial fibrillation documented as of this encounter Visit Diagnoses Not on filedocumented in this encounter Care Teams Director Mortgage Relationship Specialty Start Date End Date Tami Olivia [address] [place] [address] PCP - General Family Medicine 12/30/20 documented as of this encounter
--- OUTSIDE RECORDS SUMMARY | 2023-12-26 16:01 | XMS_ITS | Encounter Summary ---
Author Organization [facility] [place] [address] Care Team Providers Care Layout Designer Name Role Phone Tami Olivia Primary Care Provider [phone] Reason for Visit * Reason Onset Date Comments Other 11/03/2021 Encounter Details Date Type Department Care Team (Late st Contact Info) Description 11/03/2021 Telephone [place] [phone] Megan Reza RN Other Social History Tobacco [...] for 11/08/2021 at 10:30 am arrival in call center receptionist area 3. He is aware and in agreement with this plan. documented in this encounter Plan of Treatment Upcoming Encounters Date Type Department Care Team (Late st Contact Info) Description 01/20/2024 10:40 AM EST Office Visit Cardiology at [address] [phone] Chrissy Zepeda SPECIAL FORCES ENGINEER [employer] [facility] [place] [address] Scheduled Procedures Name Priority Associated Diagnoses Date/Ti me CARDIOVERSION-ELECTIVE (WRVU 2) atrial flutter ELECTROPHYSIOLOGY PROCEDURE Persistent atrial fibrillation CARDIOVERSION-ELECTIVE (WRVU 2) persistent atrial fibrillation TRANSESOPHAGEAL ECHOCARDIOGR AM (WRVU 2.3) persistent atrial fibrillation documented as of this encounter Visit Diagnoses Not on filedocumented in this encounter Care Teams Layout Designer Relationship Specialty Start Date End Date Tami Olivia [address] [place] [address] PCP - General Family Medicine 12/30/20 documented as of this encounter
--- OUTSIDE RECORDS SUMMARY | 2023-12-26 16:01 | XMS_ITS | Encounter Summary ---
Author Organization Replaced By [facility] Address [facility] [place] [address] Care Team Providers Care Fitness Worker Name Role Phone SudhakarJacksonTami Primary Care Provider [phone] Reason for Referral * Diagnostic Test (Routine) - Closed Specialty Diagnoses / Procedures Referred By Bert gautam Referred To Contact Radiology Diagnoses 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 Procedures CT Chest w Contrast Gilmer Gutiérrez MD [facility] [place] [address] [facility] [place] [address] Referral ID Status Reason Start Date Expiration Date V isits Requested Visits Authorized [id number] Closed Specialty Service Requested 04/17/2021 10/15/2022 1 1 Reason for Visit * Diagnostic Test (Routine) - Closed Specialty Diagnoses / Procedures Referred By Bert gautam Referred To Contact Radiology Diagnoses 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 Procedures CT Chest w Contrast Gilmer Gutiérrez MD [facility] [place] [address] [facility] [place] [address] Referral ID Status Reason Start Date Expiration Date V isits Requested Visits Authorized [id number] Closed Specialty Service Requested 04/17/2021 10/15/2022 1 1 Encounter Details Date Type Department Care Team (Latest Contact Info) Description 10/30/2021 1:06 PM EDT - 10/30/2021 11:59 PM EDT Hospital Encounter CT Scan at [facility] [id number] Gilmer Gutiérrez MD [facility] [place] [address] Squamous cell carcinoma of left lung; Status [...] 10:40 AM EST Office Visit Cardiology at [address] [address] Chrissy Zepeda APRN [facility] [place] [address] Scheduled Procedures Name Priority Associated Diagnoses Date/Ti [...] ? Electronically signed by: Marcus Edwards MD, [facility] ([phone]), at 10/30/2021 4:47 PM Narrative 10/30/2021 4:47 [...] mLs documented in this encounter Care Teams Fitness Worker Relationship Specialty Start Date End Date Tami Olivia [address] [place] [address] PCP - General Family Medicine 12/30/20 documented as of this encounter
--- OUTSIDE RECORDS SUMMARY | 2023-12-26 16:01 | XMS_ITS | Encounter Summary ---
Author Organization [facility] Address [facility] [place] [address] Care Team Providers Care Bead Worker Sewing Name Role Phone SudhakarJacksonTami Primary Care Provider [phone] Encounter Details Date Type Department Care Team (Latest Contact Info) Description 04/17/2021 10:34 AM EST - 04/17/2021 11:59 PM [facility] Hospital Encounter XRay at [address] [place] [address] S/P lobectomy of lung Discharge Disposition: Home [...] w/sensor 4 times daily as needed. 12/16/2023 acetaminophen (Tylenol) 500 mg Tablet Take 2 tablets by mouth every 6 hours. 30 tablet 1 04/01/2021 10/30/2021 lisinopriL (Zestril) 10 mg Tablet Take 10 mg by mouth daily. 02/21/2022 nicotine (Nicoderm CQ) 21 mg/24 hr Patch 24 hr Change 1 patch on the skin every 24 hours. 10/30/2021 UNABLE TO FIND Cbd gummies to help with smoking cessation. 12/12/2023 aspirin EC 81 mg Tablet, Delayed Release [...] AM EST Office Visit Cardiology at [address] [address] Chrissy Zepeda, NON PROFIT DIRECTOR [facility] [place] [address] Scheduled Procedures Name Priority Associated Diagnoses Date/Ti [...] questions please contact the health animal care attendant that requested your imaging first. ? Electronically signed by: Savanna Lyles MD, [facility] ([phone]), at 04/17/2021 10:54 AM Narrative 04/17/2021 10:54 [...] have questions please contactthe health animal care attendant that requested your imaging first. Electronically signed by: Savanna Lyles MD, [facility]([phone]), at 04/17/2021 10:54 AM Gilmer Gutiérrez MD IMG DX ORDERABLE S documented in this encounter Visit Diagnoses Diagnosis S/P lobectomy of lung Other postprocedural status documented in this encounter Care Teams Bead Worker Sewing Relationship Specialty Start Date End Date Tami Olivia [address] [place] [address] PCP - General Family Medicine 12/30/20 documented as of this encounter
--- OUTSIDE RECORDS SUMMARY | 2023-12-26 16:01 | XMS_ITS | Encounter Summary ---
Author Organization [facility] Address [facility] [place] [address] Care Team Providers Care Mri Special Procedures Technologist Name Role Phone Tami Olivia Primary Care Provider [phone] Encounter Details Date Type Department Care Team (Late st Contact Info) Description 12/11/2021 Ancillary Procedure Radiology Library at [facility] [place] [address] Tami Olivia [address] [place], [place] [id number] Social History Tobacco Use Types Packs/Day Years [...] 10:40 AM EST Office Visit Cardiology at [address] [place] [phone] Chrissy Zepeda APRN [facility] [place] [address] Scheduled Procedures Name Priority Associated Diagnoses Date/Ti [...] DX Chest (12/11/2021 12:00 AM EDT) Narrative [facility] - 12/16/2021 12:56 AM EDT This exam is auto-finalizing. It's purpose is for storage only. Tami Olivia [facility]RARY OR DERABLES Performing Organization Address City/State/[facility] Co de Phone Number [place], [place] documented in this encounter Visit Diagnoses Not on filedocumented in this encounter Care Teams Mri Special Procedures Technologist Relationship Specialty Start Date End Date Tami Olivia [address] [place] [address] PCP - General Family Medicine 12/30/20 documented as of this encounter
--- OUTSIDE RECORDS SUMMARY | 2023-12-26 16:01 | XMS_ITS | Encounter Summary ---
Author Organization [facility] Address [facility] [place] [address] Care Team Providers Care Dispatcher Chief Coal Slurry Name Role Phone Tami Olivia Primary Care Provider [phone] Encounter Details Date Type Department Care Team (Late st Contact Info) Description 01/29/2022 2:00 PM EST Office Visit Thoracic Surgery at [facility] [place] [address] Gilmer Gutiérrez MD [facility] [place] [address] Pleural effusion; Squamous cell carcinoma of left [...] and drinking. Your procedure will occur in cashier receptionist area 4W. YOU WILL NEED TO STOP [...] at home before you are discharged : [id number] mg alternate with ibuprofen 200 mg (2-3 [...] encounter Progress Notes * Loreta Terrell V, CRACKER AND COOKIE MACHINE OPERATOR - 01/29/2022 2:00 PM EST Thoracic Surgery Attending Outpatient Follow Up Note Gilmer Gutiérrez MD [place], [place] [address] FAX: Chief complaint: Follow up LULobectomy, recurrent [...] this thoracentesis. 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 who repeated a CT Chest [...] concerns Loreta Terrell APRN 01/29/22 Thoracic Surgery [facility] * Gilmer Gutiérrez MD - 01/29/2022 2:00 [...] 10:40 AM EST Office Visit Cardiology at [address] [address] Chrissy Zepeda APRN [facility] [place] [address] Scheduled Procedures Name Priority Associated Diagnoses Date/Ti me CARDIOVERSION-ELECTIVE (WRVU 2) atrial flutter ELECTROPHYSIOLOGY PROCEDURE Persistent atrial fibrillation CARDIOVERSION-ELECTIVE (WRVU 2) persistent atrial fibrillation TRANSESOPHAGEAL ECHOCARDIOGR AM (WRVU 2.3) persistent atrial fibrillation documented as of this encounter Results * (ABNORMAL) Comprehensive metabolic panel (non-fasting) (04/16/2022 2:10 PM EST) Glucose 98 65 - 199 mg/dL [facility] Comment:Diabetes: >=200 mg/d L plus symptoms Blood Urea Nitrogen 19 10 - 20 mg/dL [facility] Creatinine 1.20 0.80 - 1.50 mg/dL [facility] Sodium 135 135 - 145 mmol/L [facility] Potassium 4.8 3.5 - 5.0 mmol/L [facility] Comment: Please note: ??Patients with WBC >100,000 may have falsely elevated Potassium levels. ??For accurate Potassium quantification in these patients send serum separator tube (gold top) for subsequent determinations. ??Contact the Clinical Chemistry Laboratory if there are any questions. Chloride 97(L) 98 - 107 mmol/L [facility] Carbon Dioxide 25 22 - 31 mmol/L [facility] Anion Gap 13 5 - 15 mmol/L [facility] Calcium 10.7(H) 8.5 - 10.5 mg/dL [facility] Protein, Total 7.3 6.1 - 8.0 g/dL [facility] Albumin 3.8 3.2 - 5.2 g/dL [facility] Aspartate Aminotransferase 11 0 - 39 unit/L [facility] Alanine Aminotransferase 13 0 - 55 unit/L [facility] Alkaline Phosphatase 202(H) 40 - 130 unit/L [facility] Bilirubin, Total 0.5 0.2 - 1.3 mg/dL [facility] Est Glomerular Filtration Rate 64 >=60 mL/min/1. 73 m?? [facility] Comment: This patient's estimated [...] In Lab Gilmer Gutiérrez MD CHEMISTRY ORDERA BLEBetsy [facility] [place] [address] documented in this encounter Visit Diagnoses Diagnosis Pleural effusion Unspecified pleural effusion Squamous cell carcinoma of left lung documented in this encounter Care Teams Dispatcher Chief Coal Slurry Relationship Specialty Start Date End Date Tami Olivia [address] [place] [address] PCP - General Family Medicine 12/30/20 documented as of this encounter
--- OUTSIDE RECORDS SUMMARY | 2023-12-26 16:01 | XMS_ITS | Encounter Summary ---
Author Organization [facility] Address [facility] [place] [address] Care Team Providers Care Flower Planter Name Role Phone Tami Olivia Primary Care Provider [phone] Reason for Visit * Auth/Cert Specialty Diagnoses / Procedures Referred By Bert gautam Referred To Contact Diagnoses Mass of upper lobe of left lung left upper lobe lung mass Procedures PRO THORACOSCOPY SURG LOBECTOMY PRO BRONCHOSCOPY, DIAGNOSTIC @THORACOSCOPY,SURGICAL,W\LOBECTOMY, TOTAL OR SEGMENTAL (WRVU 24.64) BRONCHOSCOPY, DIAGNOSTIC (WRVU 2.78) Referral ID Status Reason Start Date Expiration Date Visits Re quested Visits Authorized [id number] 1 1 Encounter Details Date Type Department Care Team (Latest Contact Info) Description 03/29/2021 10:54 AM EST - 04/01/2021 3:25 PM EST Hospital Encounter [place] [address] Gilmer Foster MD [facility] [address] TH[place]ACIC [place] [address] Mass of upper lobe of left lung; [...] Primary * Renu Tan PA - Physician Screen Room Operator * Say Mo MD - Resident Procedure: [...] Hospital Course: Rajan Marquez was admitted to [facility] on 03/29/2021 via the Same Day [...] a nurse in the Thoracic Clinic at [phone]. After hours or on weekends or holidays please call: [phone] and ask to speak to the Thoracic [...] the Thoracic Clinic or the Thoracic Surgeon suction roller after hours. Please take over the counter [...] Expires XR Chest PA & Lateral (Generic) [[id number] Custom] 04/15/2021 10/15/2021 Process Instructions: Scheduling Instructions: Questions: Where will study be performed?: [facility] Radiology Portable exam?: Reason for exam and clinical history: s/p LULobectomy Clinical information / bryan questions for radiologist: Stat read required?: Date of injury if applicable: Requested Time: Provider Contact Information: Primary Care Provider: Tami Olivia [phone] Discharge References/Attachments: Discharge References/Attachments None For questions regarding this document or issues relating to this hospitalization on the Thoracic Surgery Service, please contact Dr. Foster's office at . Signed: STEVE Black 04/01/2021 Thoracic Surgery [facility] CC: PCP: Tami Olivia Referring: Tami Olivia [address] [place] [address] documented in this encounter Discharge Instructions * [...] a nurse in the Thoracic Clinic at [phone]. After hours or on weekends or holidays please call: [phone] and ask to speak to the Thoracic [...] the Thoracic Clinic or the Thoracic Surgeon suction roller after hours. Please take over the counter [...] needed. 12/16/2023 docusate sodium (Colace) 100 mg Capsule [...] Paredes RN - 04/01/2021 9:07 AM EST [facility] Short Stay Unit Discharge Note All relevant [...] drainage. Pt. Denies pain at this time. 2014: PVI leaking, pt. Denies pain, Vascular Access [...] Mustafa PA - 03/31/2021 8:39 AM EST [facility] Department of Thoracic Surgery Inpatient Progress Note Patient Name: Rajan Marquez Patient : 1950 Patient Patient Location: [address] Attending Surgeon: GILMER FOSTER ID: Rajan [...] from 03/29/2021 in Short Stay Unit at [facility] Office Visit from 02/17/2021 in [facility]olaryngology at [facility] Weight 100.3 kilograms, or 221 pounds 1.6 [...] Result Value Ref Range Surgical Pathology Report [id number] Location: OR; OR11; A The signing pathologist has (i) examined the relevant preparation(s) for the specimen(s) and (ii) rendered or confirmed the diagnosis(es). . Frozen Section FROZEN SECTION DIAGNOSIS AFS - Left upper lobe wedge, excision (1) for frozen section Positive for non-small cell carcinoma. 03/29/21 13:48 Electronically signed by: Malia Lacy MD Verified: 03/29/2021 13:49 Pathologist Performed at: -[facility] Dept. of Pathology, [place], [place] This intraoperative consultation should be interpreted [...] STEVE Sethi 03/31/2021 Thoracic Surgery Service Pager [phone] * Debbie Pride RN - 03/30/2021 11:05 [...] outlinedin this evaluation. Time IN / OUT: 5536-1810 Total Minutes, Physical Therapy: 25 (mod complexity eval ) Michaela Butcher, PT Pager: [phone] Physical Therapy Inpatient Rehabilitation Department * Sandra Goncalves, OT - 03/30/2021 10:05 AM EST Occupational [...] Occupational Therapy: 22 (low complexity eval, 10:05-10:27) 2016 OT Evaluation Code Rationale: ?? Diagnosis & [...] of functional outcome. Sandra Goncalves OTR/L Pager [phone] Occupational Therapy Rehabilitation Department * Yosef Butcher PA - 03/30/2021 9:34 AM EST [facility] Department of Thoracic Surgery Inpatient Progress Note Patient Name: Rajan Marquez Patient : 1950 Patient Patient Location: [address] Attending Surgeon: GILMER FOSTER ID: Rajan [...] from 03/29/2021 in Short Stay Unit at [facility] Office Visit from 02/17/2021 in Otolaryngology at [facility] Weight 100.3 kg (221 lb 1.6 oz) [...] Result Value Ref Range Surgical Pathology Report [id number] Location: OR; OR11; A The signing pathologist has (i) examined the relevant preparation(s) for the specimen(s) and (ii) rendered or confirmed the diagnosis(es). . Frozen Section FROZEN SECTION DIAGNOSIS AFS - Left upper lobe wedge, excision (1) for frozen section Positive for non-small cell carcinoma. 03/29/21 13:48 Electronically signed by: Tafe MD, Malia Peterson: 03/29/2021 13:49 Pathologist Performed at: -[facility] Dept. of Pathology, [place], [place] This intraoperative consultation should be interpreted [...] STEVE Lenz 03/30/2021 Thoracic Surgery Service Pager [phone] * Loreta Terrell APRN - 03/30/2021 9:19 AM EST [facility] Department of Thoracic Surgery Inpatient Post Op Check Note Patient Name: Rajan Marquez Patient : 1950 Patient [address] Attending Surgeon: GILMER FOSTER ID: Rajan Marquez [...] from 03/29/2021 in Short Stay Unit at [facility] Office Visit from 02/17/2021 in Otolaryngology at [facility] Weight 100.3 kilograms, or 221 pounds 1.6 [...] I/O: I/O last 3 completed shifts: In: 262 [I.V.:2350; Other:170; IV Piggyback:102] Out: 1680 [Urine:1635; Other:18; Blood:27] Labs: Recent Results (from the past 72 hour(s)) POCT Glucose Result Value Ref Range POC Glucose 89 65 - 199 mg/dL Surgical Pathology Report Result Value Ref Range Surgical Pathology Report [id number] Location: OR; OR11; A The signing pathologist has (i) examined the relevant preparation(s) for the specimen(s) and (ii) rendered or confirmed the diagnosis(es). . Frozen Section FROZEN SECTION DIAGNOSIS AFS - Left upper lobe wedge, excision (1) for frozen section Positive for non-small cell carcinoma. 03/29/21 13:48 Electronically signed by: Malia Lacy MD Verified: 03/29/2021 13:49 Pathologist Performed at: -[facility] Dept. of Pathology, [place], [place] This intraoperative consultation should be interpreted [...] RBOs, PPI, senna, colace, zofran PRN Renal/: ULISES matt, monitor UOP, flomax Heme: SQH ID: n/a Endo: n/a PPx: scds; SQH, Ambulate 4x a day. OOB. PT/OT consult Dispo: full code, floor status Loreta Terrell APRN 03/30/2021 Thoracic Surgery Service Pager [phone] * Vanessa Salcedo RN - 03/29/2021 10:04 [...] Rosario MD - 03/29/2021 10:01 PM EST [facility] Department of Thoracic Surgery Inpatient Post Op Check Note Patient Name: Rajan Marquez Patient : 1950 Patient Patient Location: [address] Attending Surgeon: GILMER FOSTER ID: Rajan [...] from 03/29/2021 in Short Stay Unit at [facility] Office Visit from 02/17/2021 in Otolaryngology at [facility] Weight 100.3 kg (221 lb 1.6 oz) [...] I/O: I/O last 3 completed shifts: In: 1972 [I.V.:1850; Other:20; IV Piggyback:102] Out: 820 [Urine:775; Other:18; Blood:27] Labs: Recent Results (from the past 72 hour(s)) POCT Glucose Result Value Ref Range POC Glucose 89 65 - 199 mg/dL Surgical Pathology Report Result Value Ref Range Surgical Pathology Report [id number] Location: OR; OR11; A The signing pathologist has (i) examined the relevant preparation(s) for the specimen(s) and (ii) rendered or confirmed the diagnosis(es). . Frozen Section FROZEN SECTION DIAGNOSIS AFS - Left upper lobe wedge, excision (1) for frozen section Positive for non-small cell carcinoma. 03/29/21 13:48 Electronically signed by: Malia Lacy MD Verified: 03/29/2021 13:49 Pathologist Performed at: -[facility] Dept. of Pathology, [place], [place] This intraoperative consultation should be interpreted [...] Rosario MD 03/29/2021 Thoracic Surgery Service Pager [phone] * Debbie Pride RN - 03/29/2021 5:39 [...] STEVE Noguera 03/29/2021 Thoracic Surgery Service Pager [phone] documented in this encounter Nursing Notes * [...] anticipated Patient is insured through: Primary Insurance: [facility] MANAGED MEDICARE Payor: [facility] MANAGED MEDICARE / Plan: [facility]IC[facility] COMPLETE / Product Type: *No Producttype* / Secondary Insurance: N/A Prescription Coverage: YES Preferred Pharmacy: No Pharmacies Listed This plan was formulated with input from patient and team. All are in agreement with plan. Initial IMM given: 03/30/21 11:18 AM OCM RS to provide DC IMM R. (Jose Manuel) CHRISTINA Salinas RN/CM - Cellphone: [phone] Pager: [phone] Covering Service RN/CM * Initial Assessments - [...] SO, would be surrogate decision maker per [place] surrogate decision making law. (Only good for 180 days) Any patient receiving care at [facility] must abide by [place] law. The hierarchy for surrogate decision making [...] (i) The agent with financial power of trial attorney or a conservator appointed in accordance [...] Current DME: none Home Address confirmed as: [address] [place] [address] Social & Family Supports: All names listed below confirmed with patient as current and correct Extended Emergency Contact Information Primary Emergency Contact: SHAY PARISH Address: [address] [place] [address] of [facility] Mobile Relation: Life Partner Secondary Emergency Contact: USMANNORBERTO Mobile Relation: Friend Current Care Provided by: [...] removed before discharge Health/Prescription Coverage: Primary Insurance: [facility] MANAGED MEDICARE Payor: [facility] MANAGED MEDICARE / Plan: [facility] MANAGED MEDICARE COMPLETE / Product Type: *No Producttype* / Secondary Insurance: N/A Prescription Coverage: Yes Preferred Pharmacy: No Pharmacies Listed Patient reports he uses [facility], [place], [place] Status: Patient is a : No Primary Care Provider: Taim Olivia [phone] Patient/Caregiver Goals of Treatment: 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 PHONE: [phone] FAX: [phone] Transportation: no concerns Transportation Anticipated: family or [...] Reyes RN CM(remote) Melania Salinas RN CM [phone] * Brief Op Note - Say Mo MD - 03/29/2021 4:35 PM EST Brief Operative Note Patient Name: Rajan Marquez : [id number] MR#: [id number] Case Date: 03/29/2021 Surgeon: Surgeon(s) and Role: * Gilmer Foster MD - Primary * Renu Tan PA - Physician Screen Room Operator * Say Mo MD - Resident Preoperative [...] SPECIMEN TO PATHOLOGY Freeze mass, not margin 15343 left upper lobe lung mass left upper lobe wedge excision YES, Please perform frozen section 03/29/2021 1:18 PM Number of tissue samples (in container) 1 Time specimen removed from patient: 1:18 PM PATHOLOGY ORDER UPDATE [id number] 03/29/2021 1:29 PM Additional information: Additional Info Enter requested changes: Fragment of tumor marked with stitch eD-H Order Id number [id number] SPECIMEN TO PATHOLOGY [id number] left upper lobe lung mass left upper lobectomy resection 03/29/2021 3:39 PM Number of tissue samples (in container) 1 Time specimen removed from patient: 3:36 PM SPECIMEN TO PATHOLOGY 05369 left upper lobe lung mass AP Window [...] Foster MD - 03/29/2021 1:01 PM EST [facility] Operative Note Patient Name: Rajan Marquez : [id number] MR#: [id number] Case Date: 03/29/2021 Surgeon: Surgeon(s) and Role: * Gilmer Foster MD - Primary * Renu Tan PA - Physician Screen Room Operator * Say Mo MD - Resident Preoperative [...] SPECIMEN TO PATHOLOGY Freeze mass, not margin 40395 left upper lobe lung mass left upper lobe wedge excision YES, Please perform frozen section 03/29/2021 1:18 PM Number of tissue samples (in container) 1 Time specimen removed from patient: 1:18 PM PATHOLOGY ORDER UPDATE [id number] 03/29/2021 1:29 PM Additional information: Additional Info Enter requested changes: Fragment of tumor marked with stitch eD-H Order Id number [id number] SPECIMEN TO PATHOLOGY [id number] left upper lobe lung mass left upper lobectomy resection 03/29/2021 3:39 PM Number of tissue samples (in container) 1 Time specimen removed from patient: 3:36 PM SPECIMEN TO PATHOLOGY 72878 left upper lobe lung mass AP Window lymph node excision 03/29/2021 3:55 PM Number of tissue samples (in container) 1 Time specimen removed from patient: 3:54 PM Drains: 28 [place] Islander chest tube, left Surgical Closure: Primary Closure [...] adequate. The aorticopulmonary window was explored and event sales representative lymph nodes were resected. After assessing each port site for hemostasis, a 28 [place] Islander chest tube was placed through the camera [...] 10:40 AM EST Office Visit Cardiology at [address] [place] [address] Chrissy Zepeda, [facility] [place] [address] Scheduled Procedures Name Priority Associated Diagnoses Date/Ti [...] Agent &/ Steroid Intercostal Nerve Single Level (63531) 03/29/2021 12:08 PM EST Mass of upper lobe of left lung Thoracoscopy With Mediastinal And Regional Lymphadenectomy 03/29/2021 12:08 PM EST Mass of upper lobe of left lung Bronchoscopy, Diagnostic (57547) 03/29/2021 12:08 PM EST Mass of upper lobe of left lung Thoracoscopy Surg Lobectomy (55005) 03/29/2021 12:08 PM EST Mass of upper [...] ? Electronically signed by: Savanna Lyles MD, [facility] ([phone]), at 04/17/2021 10:54 AM Narrative 04/17/2021 10:54 [...] first. Electronically signed by: Savanna Lyles MD, [facility]([phone]), at 04/17/2021 10:54 AM Gilmer Foster MD [...] assistant that requested your imaging first. ? Narrative [...] care assistant that requested your imaging first. Gilmer Foster MD IMG DX ORDERABLE S * (ABNORMAL) Differential, Automated (04/01/2021 3:59 AM EST) Neutrophil % 74.5 % [facility] Neutrophil Absolute 7.27(H) 1.70 - 6.10 x10(3)/ L [facility] Lymph % 14.3 % [facility] Lymphocytes Abs 1.4 0.9 - 3.2 x10(3)/ L [facility] Monocyte % 9.1 % [facility] Monocyte Abs 0.9 0.3 - 0.9 x10(3)/[facility] Eos % 1.4 % [facility] Eosinophils Abs 0.1 0.0 - 0.4 x10(3)/[facility] Basophil % 0.3 % [facility] Baso Absolute 0.0 0.0 - 0.1 x10(3)/ L [facility] Immature Gran % 0.40 % [facility] Comment: Immature granulocytes(IG's)percentage and absolute count will include metamyelocytes, myelocytes, and promyelocytes. Blood smears from CBCs yielding IG's will be scanned manually for concordance. If this scan disagrees with the automated IG or if promyelocytes are noted, a manual differential will be performed. Immature Gran Absolute 0.04 0.00 - 0.04 x10(3)/ L [facility] Blood 04/01/2021 3:59 AM EST 04/01/2021 4:11 AM EST Narrative Resulting Agency Comment Spec In Lab Lacy Rosario MD HEMATOLOGY ORDERABLE S [facility] [place] [address] * (ABNORMAL) Hemogram (04/01/2021 3:59 AM EST) White Blood Cell 9.8(H) 4.0 - 9.5 x10(3)/ L [facility] Red Blood Cell 4.21(L) 4.58 - 5.54 x10(6)/ L [facility] Hemoglobin 12.9(L) 13.7 - 16.5 g/dL [facility] Hematocrit 38.6(L) 40.5 - 48.5 % [facility] Mean Cell Volume 91.7 82.9 - 93.1 fL [facility] Mean Cell Hemoglobin 30.6 27.5 - 32.1 pg [facility] Mean Cell Hemoglobin Concentration 33.4 32.0 - 35.7 g/dL [facility] Platelet 176 145 - 357 x10(3)/[facility] RDW Standard Deviation 44.7 36.0 - 45.0 [facility] RDW coefficient of variation 13.2 11.4 - 13.8 % [facility] Mean Platelet Volume 10.1 7.6 - 12.9 [facility] NRBC% auto 0.0 % [facility] NRBC Absolute 0.000 0.000 - 0.000 x10(3)/[facility] Blood 04/01/2021 3:59 AM EST 04/01/2021 4:11 AM EST Narrative Resulting Agency Comment Spec In Lab Lacy Rosario MD HEMATOLOGY ORDERABLE S [facility] [place] [address] * Phosphorus (04/01/2021 3:59 AM EST) Phosphorus 3.2 2.5 - 4.5 mg/dL [facility] Blood 04/01/2021 3:59 AM EST 04/01/2021 4:11 AM EST Narrative Resulting Agency Comment Spec In Lab Gilmer Foster MD CHEMISTRY ORDERA BLES [facility] [place] [address] * Magnesium (04/01/2021 3:59 AM EST) Magnesium 0.85 0.69 - 1.07 mmol/L [facility] Blood 04/01/2021 3:59 AM EST 04/01/2021 4:11 AM EST Narrative Resulting Agency Comment Spec In Lab Gilmer Foster MD CHEMISTRY ORDERA BLES Performing Organization Address [facility]/ZIP Co de Phone Number [facility] [place] [address] * (ABNORMAL) Basic Metabolic Panel (non-fasting) (04/01/2021 3:59 AM EST) Pathologist [facility] Glucose 107 65 - 199 mg/dL [facility] Comment:Diabetes: >=200 mg/d L plus symptoms Blood Urea Nitrogen 22(H) 10 - 20 mg/dL [facility] Creatinine 1.27 0.80 - 1.50 mg/dL [facility] Sodium 137 135 - 145 mmol/L [facility] Potassium 4.3 3.5 - 5.0 mmol/L [facility] Comment: Please note: ??Patients with WBC >100,000 may have falsely elevated Potassium levels. ??For accurate Potassium quantification in these patients send serum separator tube (gold top) for subsequent determinations. ??Contact the Clinical Chemistry Laboratory if there are any questions. Chloride 104 98 - 107 mmol/L [facility] Carbon Dioxide 21(L) 22 - 31 mmol/L [facility] Anion Gap 12 5 - 15 mmol/L [facility] Calcium 8.8 8.5 - 10.5 mg/dL [facility] Est Glomerular Filtration Rate 56(L) >=60 mL/min/1. 73 m?? [facility] Comment: This patient? s estimated [...] Lab Gilmer Foster MD CHEMISTRY ORDERA JOSIE [facility] [place] [address] * XR Chest PA & Lateral (Generic) [...] ? Electronically signed by: Jose Aaron MD, [facility] ([phone]), at 03/31/2021 4:30 PM Narrative 03/31/2021 4:30 [...] care assistant that requested your imaging first. Loreta Xander Casillas, ICT CUSTOMER SUPPORT OFFICER IMG DX ORDERABL ES * XR Chest [...] ? Electronically signed by: Savanah Suazo MD, [facility] ([phone]), at 03/31/2021 11:31 AM Narrative 03/31/2021 11:31 [...] signed by: Savanah Suazo MD, [facility] ([phone]), at 03/31/2021 11:31 AM Gilmer Foster MD IMG DX ORDERABLE S * (ABNORMAL) Differential, Automated (03/31/2021 4:08 AM EST) Neutrophil % 71.6 % [facility] Neutrophil Absolute 7.59(H) 1.70 - 6.10 x10(3)/ L [facility] Lymph % 18.1 % [facility] Lymphocytes Abs 1.9 0.9 - 3.2 x10(3)/ L [facility] Monocyte % 8.7 % [facility] Monocyte Abs 0.9 0.3 - 0.9 x10(3)/ L [facility] Eos % 0.6 % [facility] Eosinophils Abs 0.1 0.0 - 0.4 x10(3)/[facility] Basophil % 0.5 % [facility] Baso Absolute 0.0 0.0 - 0.1 x10(3)/[facility] Immature Gran % 0.50 % [facility] Comment: Immature granulocytes(IG's)percentage and absolute count will include metamyelocytes, myelocytes, and promyelocytes. Blood smears from CBCs yielding IG's will be scanned manually for concordance. If this scan disagrees with the automated IG or if promyelocytes are noted, a manual differential will be performed. Immature Gran Absolute 0.05(H) 0.00 - 0.04 x10(3)/[facility] Blood 03/31/2021 4:08 AM EST 03/31/2021 4:16 AM EST Narrative Resulting Agency Comment Spec In Lab Lacy Rosario MD HEMATOLOGY ORDERABLE S [facility] [place] [address] * (ABNORMAL) Hemogram (03/31/2021 4:08 AM EST) Pathologist [facility] White Blood Cell 10.6(H) 4.0 - 9.5 x10(3)/[facility] Red Blood Cell 3.99(L) 4.58 - 5.54 x10(6)/mc L [facility] Hemoglobin 12.3(L) 13.7 - 16.5 g/dL [facility] Hematocrit 36.1(L) 40.5 - 48.5 % [facility] Mean Cell Volume 90.5 82.9 - 93.1 fL [facility] Mean Cell Hemoglobin 30.8 27.5 - 32.1 pg [facility] Mean Cell Hemoglobin Concentration 34.1 32.0 - 35.7 g/dL [facility] Platelet 171 145 - 357 x10(3)/mc L [facility] RDW Standard Deviation 43.4 36.0 - 45.0 fL [facility] RDW coefficient of variation 13.2 11.4 - 13.8 % [facility] Mean Platelet Volume 10.1 7.6 - 12.9 fL [facility] NRBC% auto 0.0 % [facility] NRBC Absolute 0.000 0.000 - 0.000 x10(3)/mc L [facility] Blood 03/31/2021 4:08 AM EST 03/31/2021 4:16 AM EST Narrative Resulting Agency Comment Spec In Lab Lacy Rosario MD HEMATOLOGY ORDERABLE S [facility] [place] [address] * Phosphorus (03/31/2021 4:08 AM EST) Phosphorus 3.2 2.5 - 4.5 mg/dL [facility] Blood 03/31/2021 4:08 AM EST 03/31/2021 4:16 AM EST Narrative Resulting Agency Comment Spec In Lab Gilmer Foster MD CHEMISTRY ORDERA BLES [facility] [place] [address] * Magnesium (03/31/2021 4:08 AM EST) Magnesium 0.86 0.69 - 1.07 mmol/L [facility] Blood 03/31/2021 4:08 AM EST 03/31/2021 4:16 AM EST Narrative Resulting Agency Comment Spec In Lab Gilmer Foster MD CHEMISTRY ORDERA BLES [facility] [place] [address] * (ABNORMAL) Basic Metabolic Panel (non-fasting) (03/31/2021 4:08 AM EST) Pathologist [facility] Glucose 114 65 - 199 mg/dL [facility] Comment:Diabetes: >=200 mg/d L plus symptoms Blood Urea Nitrogen 17 10 - 20 mg/dL [facility] Creatinine 1.22 0.80 - 1.50 mg/dL [facility] Sodium 138 135 - 145 mmol/L [facility] Potassium 3.8 3.5 - 5.0 mmol/L [facility] Comment: Please note: ??Patients with WBC >100,000 may have falsely elevated Potassium levels. ??For accurate Potassium quantification in these patients send serum separator tube (gold top) for subsequent determinations. ??Contact the Clinical Chemistry Laboratory if there are any questions. Chloride 105 98 - 107 mmol/L [facility] Carbon Dioxide 22 22 - 31 mmol/L [facility] Anion Gap 11 5 - 15 mmol/L [facility] Calcium 8.5 8.5 - 10.5 mg/dL [facility] Est Glomerular Filtration Rate 59(L) >=60 mL/min/1. 73 m?? [facility] Comment: This patient? s estimated [...] Lab Gilmer Foster MD CHEMISTRY ORDERA BLES [facility] [place] [address] * (ABNORMAL) XR Chest PA & Lateral [...] ? Electronically signed by: Sara Aaron MD, [facility] ([phone]), at 03/30/2021 1:18 PM Narrative 03/30/2021 1:18 [...] care assistant that requested your imaging first. Gilmer Foster MD IMG DX ORDERABLE S * (ABNORMAL) Differential, Automated (03/30/2021 4:04 AM EST) Neutrophil % 86.1 % [facility] Neutrophil Absolute 13.63(H) 1.70 - 6.10 x10(3)/mc L [facility] Lymph % 7.9 % [facility] Lymphocytes Abs 1.2 0.9 - 3.2 x10(3)/mc L [facility] Monocyte % 5.6 % [facility] Monocyte Abs 0.9 0.3 - 0.9 x10(3)/[facility] Eos % 0.0 % [facility] Eosinophils Abs 0.0 0.0 - 0.4 x10(3)/[facility] Basophil % 0.1 % [facility] Baso Absolute 0.0 0.0 - 0.1 x10(3)/[facility] LAB[facility] Immature Gran % 0.30 % [facility] Comment: Immature granulocytes(IG's)percentage and absolute count will include metamyelocytes, myelocytes, and promyelocytes. Blood smears from CBCs yielding IG's will be scanned manually for concordance. If this scan disagrees with the automated IG or if promyelocytes are noted, a manual differential will be performed. Immature Gran Absolute 0.05(H) 0.00 - 0.04 x10(3)/[facility] Blood 03/30/2021 4:04 AM EST 03/30/2021 4:14 AM EST Narrative Resulting Agency Comment Spec In Lab Lacy Rosario MD HEMATOLOGY ORDERABLE S [facility] [place] [address] * (ABNORMAL) Hemogram (03/30/2021 4:04 AM EST) White Blood Cell 15.8(H) 4.0 - 9.5 x10(3)/[facility] Red Blood Cell 4.20(L) 4.58 - 5.54 x10(6)/[facility] Hemoglobin 13.1(L) 13.7 - 16.5 g/dL [facility] Hematocrit 37.5(L) 40.5 - 48.5 % [facility] Mean Cell Volume 89.3 82.9 - 93.1 fL [facility] Mean Cell Hemoglobin 31.2 27.5 - 32.1 pg [facility] Mean Cell Hemoglobin Concentration 34.9 32.0 - 35.7 g/dL [facility] Platelet 183 145 - 357 x10(3)/mc L [facility] RDW Standard Deviation 41.9 36.0 - 45.0 fL [facility] RDW coefficient of variation 12.9 11.4 - 13.8 % [facility] Mean Platelet Volume 10.3 7.6 - 12.9 fL [facility] NRBC% auto 0.0 % [facility] NRBC Absolute 0.000 0.000 - 0.000 x10(3)/mc L [facility] Blood 03/30/2021 4:04 AM EST 03/30/2021 4:14 AM EST Narrative Resulting Agency Comment Spec In Lab Lacy Rosario MD HEMATOLOGY ORDERABLE S Performing Organization Address City/[facility]/ZIP Co de Phone Number [facility] [place] [address] * Phosphorus (03/30/2021 4:04 AM EST) Phosphorus 3.1 2.5 - 4.5 mg/dL [facility] Blood 03/30/2021 4:04 AM EST 03/30/2021 4:14 AM EST Narrative Resulting Agency Comment Spec In Lab Gilmer Foster MD CHEMISTRY ORDERA BLES Performing Organization Address City/[facility]/ZIP Co de Phone Number [facility] [place] [address] * (ABNORMAL) Magnesium (03/30/2021 4:04 AM EST) Magnesium 0.67(L) 0.69 - 1.07 mmol/L [facility] Blood 03/30/2021 4:04 AM EST 03/30/2021 4:14 AM EST Narrative Resulting Agency Comment Spec In Lab Gilmer Foster MD CHEMISTRY ORDERA BLES [facility] [place] [address] * Basic Metabolic Panel (non-fasting) (03/30/2021 4:04 AM EST) Glucose 138 65 - 199 mg/dL [facility] Comment:Diabetes: >=200 mg/d L plus symptoms Blood Urea Nitrogen 20 10 - 20 mg/dL [facility] Creatinine 1.15 0.80 - 1.50 mg/dL [facility] Sodium 136 135 - 145 mmol/L [facility] Potassium 3.9 3.5 - 5.0 mmol/L [facility] Comment: Please note: ??Patients with WBC >100,000 may have falsely elevated Potassium levels. ??For accurate Potassium quantification in these patients send serum separator tube (gold top) for subsequent determinations. ??Contact the Clinical Chemistry Laboratory if there are any questions. Chloride 103 98 - 107 mmol/L [facility] Carbon Dioxide 22 22 - 31 mmol/L [facility] Anion Gap 11 5 - 15 mmol/L [facility] Calcium 8.9 8.5 - 10.5 mg/dL [facility] Est Glomerular Filtration Rate 64 >=60 mL/min/1. 73 m?? [facility] Comment: This patient? s estimated [...] Lab Gilmer Foster MD CHEMISTRY CARMEN GALINDO [facility] [place] [address] * XR Chest One View (03/29/2021 5:35 [...] ? Electronically signed by: Casa Sanchez MD, [facility] ([phone]), at 03/29/2021 5:37 PM Narrative 03/29/2021 5:37 [...] first. Electronically signed by: Casa Sanchez MD, [facility]([phone]), at 03/29/2021 5:37 PM Gilmer Foster MD IMG DX ORDERABLE S * Specimen to Pathology (03/29/2021 3:55 PM EST) AP Specimen 03/29/2021 3:55 PM EST 03/29/2021 3:55 PM EST Narrative [facility] - 03/29/2021 3:55 PM EST Specimen requisition ordered. ??Separate Pathology report to follow Gilmer Foster MD PATHOLOGY/CYTOLO GY ORDERABLES Performing Organization Address [facility] Co de Phone Number [facility] [place] [address] * Specimen to Pathology (03/29/2021 3:39 PM EST) AP Specimen 03/29/2021 3:39 PM EST 03/29/2021 3:39 PM EST Narrative [facility] - 03/29/2021 3:39 PM EST Specimen requisition ordered. ??Separate Pathology report to follow Gilmer Foster MD PATHOLOGY/CYTOLO GY ORDERABLES Performing Organization Address [facility]/ZIP Co de Phone Number [facility] [place] [address] * Solid Tumor NGS Panel (03/29/2021 1:18 PM EST) Tissue 03/29/2021 1:18 PM EST 04/10/2021 2:38 PM EST Narrative Resulting Agency Comment Spec In Lab Gilmer Foster MD PATHOLOGY/CYTOLO GY ORDERABLES Performing Organization Address [facility] de Phone Number [facility] [place] [address] * Surgical Pathology Report (03/29/2021 1:18 PM EST) Final Diagnosis [id number] ? Location: [facility]; [address] The signing pathologist has (i) [...] The assay was performed according to the fire lieutenant marine's instructions using Anti-PD-L1 (22C3, pharmDX) antibody. Electronically signed by: ?Eugene FLORES PhD, Alysia Verified: ??04/12/2021 8:54 ?? Pathologist Performed at: ??-[facility], [place], [place] ?Surgical Pathology DIAGNOSIS A) Left upper [...] Soriano Verified: ??04/09/2021 11:33 ??Pathologist Performed at: ??-[facility], [place], [place] SYNOPTIC Specimen ? Procedure: ??Lobectomy ? [...] These foci are ?favored to represent entrapped capitan grande band mucin cells; however, the possibility ?of focal glandular carcinoma differentiation cannot be entirely excluded. Tumor Block(s): ??B7 Normal Block(s): ??C1 [facility] January 2021 Release DISCUSSION Tumor somatic mutation testing and PD-L1 IHC testing have been ordered and will be reported separately. ADDITIONAL STUDIES Whole slide scan: event sales representative slide(s) EVG stains were evaluated for [...] ?Negative B5 ? p40 ?Positive B5 ? [id number] ? Positive B6 ? [id number] ? Positive B8 ? p40 ?Positive B8 [...] is submitted for frozen section: FS 1-lesion. Building Economist sections in 3 cassettes as follows: ?A1: ??FS1 frozen section remnant/lesion ?A2: ??Closest staple line (including possible residual lesion) ?A3: ??Building Economist lung parenchyma adjacent to lesion B - [...] of friable pleural disruption is inked blue Building Economist sections in 14 cassettes as follows: ?B1: ??Bronchial margin, en face ?B2: ??Vascular margins, en face ?B3: ??Parenchymal staple margin ?B4: ??Prior wedge staple line ?B5-B7: ??Mass in relation to disrupted pleura (inked blue) ?B8-B9: ??Mass with adjacent uninvolved lung parenchyma . SPECIMEN PROCESSING ?B10: ??Building Economist uninvolved lung parenchyma ?B11: ??Single intact lobar [...] Swann Verified: ??03/29/2021 13:49 ??Pathologist Performed at: ??-[facility]. [facility], [place], [place] This intraoperative consultation should be interpreted as a preliminary diagnosis pending review of the entire specimen and special studies, if any. A final Surgical Pathology report will follow this preliminary Frozen Section report(s). 04/12/2021 8:54 AM EST [facility] LYMPH NODE SPECIMEN / Unknown 03/29/2021 1:18 PM EST 03/29/2021 1:18 PM EST LUNG STRUCTURE / Unknown 03/29/2021 1:18 PM EST 03/29/2021 1:18 PM EST LYMPH NODE SPECIMEN / Unknown 03/29/2021 1:18 PM EST 03/29/2021 1:18 PM EST Gilmer Foster MD PATHOLOGY/CYTOLO GY ORDERABLES [facility] [place] [address] * Specimen to Pathology (03/29/2021 1:18 PM EST) AP Specimen 03/29/2021 1:18 PM EST 03/29/2021 1:18 PM EST Narrative [facility] - 03/29/2021 1:18 PM EST Specimen requisition ordered. ??Separate Pathology report to follow Gilmer Foster MD PATHOLOGY/CYTOLO GY ORDERABLES Performing Organization Address City/[facility]/ZIP Co de Phone Number [facility] [place] [address] * POCT Glucose (03/29/2021 12:02 PM EST) Glucose, POC 89 65 - 199 mg/dL [facility] Comment: Supplemental ranges: <140 mg/dL before meals <180 mg/dL all other times of the day Blood 03/29/2021 12:0 2 PM EST 03/29/2021 12:02 PM EST Gilmer Foster MD POINT OF CARE TE ST ORDERABLES Performing Organization Address [facility] Co de Phone Number [facility] [place] [address] documented in this encounter Visit Diagnoses Diagnosis [...] on Sat03/30/21 at 0130, Last dose on [facility] 04/01/21 at 1730, Routine Given 04/01/2021 9:02 [...] subcutaneous injection 5,000 Units 5,000 Units, Subcutaneous, MEDICAL FACILITIES SECTION DIRECTOR TO O.R., 1 dose, On Sat03/29/21 at [...] 5 mg, Oral, DAILY, First dose on [facility] 03/30/21 at 1015, Until Discontinued, Routine Given 04/01/2021 9:01 AM EST 5 mg Given 03/31/2021 9:08 AM EST 5 mg Given 03/30/2021 11:39 AM EST 5 mg magnesium sulfate 2 g in sterile water 50 mL infusion 2 g, Intravenous, ONCE, 1 dose, On [facility] 03/30/21 at 0800, Administer over 120 Minutes New Bag 03/30/2021 11:36 AM EST 2 g 25 mL/hr mometasone (Asmanex) aerosol 2 puff 2 puff (440 mcg), Inhalation, 2 TIMES DAILY, First dose on [facility] 03/30/21 at 1030, Until Discontinued, Routine, Does the patient have the inspiratory effort to support a dry powder inhaler? Yes Given 04/01/2021 8:59 AM EST 2 puffs Given 03/31/2021 8:20 PM EST 2 puffs Given 03/31/2021 9:07 AM EST 2 puffs nicotine (Nicoderm CQ) 21 mg/24 hr patch 21 mg 21 mg (1 patch), Transdermal, DAILY, First dose on [facility] 03/30/21 at 0900, Until Discontinued, Apply new [...] Patch Removal Transdermal, DAILY, First dose on [facility] 03/30/21 at 0900, Until Discontinued, Remove nicotine [...] RN) 0330 (Not Given - Provider: Leonora Kingsley, CHRISTINA - Reason: Patient/family refused)0930 (Due) AMIOdarone (Paceron) tablet 400 mg(Linked Group 1) 400 mg, Oral, EVERY 8 HOURS, 9 doses, First dose on Stephanie 03/30/21 at 0130, Last dose on 04/01/21 at 1730, Routine 0035 (Given - Provider: Vanessa Salcedo, CHRISTINA)0912 (Given - Provider: Debbie Pride RN)1710 (Given - Provider: Debbie Pride, CHRISTINA) 0144 (Given - Provider: Gabi Cotto, CHRISTINA)0911 (Given - Provider: Olamide Bucio, CHRISTINA)175 (Given - Provider: Olamide Bucio RN) 0037 [...] Reason: Patient/family refused)1711 (Given - Provider: Debbie Pride, CHRISTINA) 0633 (Given - Provider: Gabi Cotto, CHRISTINA)1753 (Given - Provider: Olamide Bucio, CHRISTINA) 0543 (Given - Provider: Leonora Kingsley, CHRISTINA) [...] Pride RN)1440 (Given - Provider: Debbie Pride, CHRISTINA)2052 (Given - Provider: Gabi Cotto RN) 0908 [...] RN)2019 (Given - Provider: Leonora Kingsley, CHRISTINA) 0903 [...] RN)2052 (Given - Provider: Gabi Cotto, CHRISTINA) 2208 (Given - Provider: Leonora Kingsley, CHRISTINA) [...] patch documented in this encounter Care Teams Flower Planter Relationship Specialty Start Date End Date Corwin Tami [address] [place] [address] PCP - General Family Medicine 12/30/20 documented as of this encounter
--- OUTSIDE RECORDS SUMMARY | 2023-12-26 16:01 | XMS_ITS | Encounter Summary ---
Author Organization [facility] Address [facility] [place] [address] Care Team Providers Care Geospatial Imagery Intelligence Analyst Name Role Phone Tami Olivia Primary Care Provider [phone] Encounter Details Date Type Department Care Team (Late st Contact Info) Description 11/01/2021 [place] [address] Ramon Manrique PA [facility] DR INTERVENTIONAL RADIOLOGY [place] [id number] Social History Tobacco Use Types Packs/Day Years [...] 2.78) performed by Gilmer Gutiérrez MD at [facility] MAIN OR ? ? PRO INJECTION ANES AGENT &/ STEROID INTERCOSTAL NERVE SINGLE LEVEL Left 03/29/2021 NERVE BLOCK, INTERCOSTAL NERVE (WRVU 1.18) performed by Gilmer Gutiérrez MD at [facility] OR ??? PRO THORACOSCOPY SURG LOBECTOMY Left 03/29/2021 @THORACOSCOPY,SURGICAL,W\LOBECTOMY,TOTAL OR SEGMENTAL (WRVU 24.64) performed by Johana Gutiérrez MD at [facility] MAIN OR ??? PRO THORACOSCOPY WITH MEDIASTINAL AND REGIONAL LYMPHADENECTOMY 03/29/2021 @THORACOSCOPY, SURG; W/MEDIASTINAL& REGIONAL LYMPHADENECTOMY (WRVU 4.12) performed by Gilmer Gutiérrez MD at [facility] OR ??? PRO THORACOSCOPY WITH WEDGE RESECTION AND ANATOMIC LUNG RESECTN Left 03/29/2021 @THORACOSCOPY, SURG; W/DX WEDGE RESC W/ANATOMIC LUNG RESC (WRVU 3) performed by Johana Gutiérrez MD at [facility] OR Social history and habits: Social History [...] 10:40 AM EST Office Visit Cardiology at [address] [address] Chrissy Zepeda LEADERSHIP RECRUITER [facility] [place] [address] Scheduled Procedures Name Priority Associated Diagnoses Date/Ti me CARDIOVERSION-ELECTIVE (WRVU 2) atrial flutter ELECTROPHYSIOLOGY PROCEDURE Persistent atrial fibrillation CARDIOVERSION-ELECTIVE (WRVU 2) persistent atrial fibrillation TRANSESOPHAGEAL ECHOCARDIOGR AM (WRVU 2.3) persistent atrial fibrillation documented as of this encounter Results * (ABNORMAL) Hemogram (11/08/2021 10:27 AM EDT) White Blood Cell 8.8 4.0 - 9.5 x10(3)/mc L [facility] Red [...] CENTER LABORATORY Platelet 287 145 - 357 x10(3)/mc L [facility] RDW Standard Deviation 43.4 36.0 - 45.0 fL [facility] RDW coefficient of variation 13.2 11.4 - 13.8 % [facility] Mean Platelet Volume 9.3 7.6 - 12.9 fL [facility] NRBC% auto 0.0 % [facility] NRBC Absolute 0.000 0.000 - 0.000 x10(3)/mc L [facility] Blood 11/08/2021 10:2 7 AM EDT 11/08/2021 10:31 AM EDT Narrative Resulting Agency Comment Spec In Lab Sloan Parker DO HEMATOLOGY ORDERABLE S [facility] [place] [address] documented in this encounter Visit Diagnoses Diagnosis Squamous cell carcinoma of left lung documented in this encounter Care Teams Geospatial Imagery Intelligence Analyst Relationship Specialty Start Date End Date Tami Olivia [address] [place] [address] PCP - General Family Medicine 12/30/20 documented as of this encounter
--- OUTSIDE RECORDS SUMMARY | 2023-12-26 16:01 | XMS_ITS | Encounter Summary ---
Author Organization [facility] Address [facility] [place] [address] Care Team Providers Care Medical Care Manager Name Role Phone Tami Olivia Primary Care Provider [phone] Reason for Referral * Diagnostic Test (Routine) - Closed Specialty Diagnoses / Procedures Referred By Bert gautam Referred To Contact Radiology Diagnoses 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 Pleural effusion Procedures IR Thoracentesis Left Gilmer Gutiérrez MD [facility] [place] [address] [place] [address] Referral ID Status Reason Start Date Expiration Date V isits Requested Visits Authorized [id number] Closed Specialty Service Requested 10/30/2021 05/02/2023 1 1 Reason for Visit * Reason Comments Follow-up Encounter Details Date Type Department Care Team (Late st Contact Info) Description 10/30/2021 2:30 PM EDT Office [place] [phone] Gilmer Gutiérrez MD [facility] [place] [address] Squamous cell carcinoma of left [...] Up Note MD Yosef Fischer. ASHLEY Butcher [place] [address] FAX: Reason for Visit: Follow up s/p [...] Kathleen Kemp MD 60 mL at 10/30/21 5736 Physical Exam: BP 157/75 (Patient Position: Sitting) [...] read pending per radiology. On our review, [id number] Left pleural effusion appreciated, no new nodules appreciated. Assessment: Rajan Marquez is a 70 y.o. 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 He is currently feeling well, however [id number] Left pleural effusion appreciated on CT today, [...] AM EST Office Visit Cardiology at [address] [place] [address] Chrissy Zepeda APRN [facility] [place] [address] Scheduled Procedures Name Priority Associated Diagnoses Date/Ti [...] Fr inner micropuncture dilator with coaxial mounted Mobivityeh catheter was advanced. A total of 200 [...] effusion documented in this encounter Care Teams Medical Care Manager Relationship Specialty Start Date End Date Tami Olivia [address] [place] [address] PCP - General Family Medicine 12/30/20 documented as of this encounter
--- OUTSIDE RECORDS SUMMARY | 2023-12-26 16:01 | XMS_ITS | Encounter Summary ---
Author Organization [facility] Address [facility] [place] [address] Care Team Providers Care Operations Assistant Name Role Phone Tami Olivia Primary Care Provider Encounter Details Date Type Department Care Team (Late st Contact Info) Description 01/03/2022 Ancillary Procedure Radiology Library at [facility] [place] [phone] Gilmer Gutiérrez MD [facility] [place] [address] Social History Tobacco Use Types Packs/Day Years [...] AM EST Office Visit Cardiology at [address] [place] [phone] Chrissy Zepeda APRN [facility] [place] [address] Scheduled Procedures Name Priority Associated Diagnoses Date/Ti [...] CT Chest (01/03/2022 12:00 AM EDT) Narrative [facility] - 01/04/2022 7:48 PM EDT This exam is auto-finalizing. It's purpose is for storage only. Gilmer Gutiérrez MD IMG FILM LIBRARY ORDERABLES Performing Organization Address City/State/[facility] Co de Phone Number [place], [place] documented in this encounter Visit Diagnoses Not on filedocumented in this encounter Care Teams Operations Assistant Relationship Specialty Start Date End Date Tami Olivia [address] [place] [address] PCP - General Family Medicine 12/30/20 documented as of this encounter
--- OUTSIDE RECORDS SUMMARY | 2023-12-26 16:01 | XMS_ITS | Encounter Summary ---
Author Organization [facility] Address [facility] [place] [address] Care Team Providers Care Scale Balancer Name Role Phone Tami Olivia Primary Care Provider [phone] Encounter Details Date Type Department Care Team (Late st Contact Info) Description 04/04/2021 Telephone Thoracic Surgery at [facility] [place] [phone] Megan Reza RN Social History Tobacco Use [...] 04/17/2021 CXR 04/17/2021 at 10:45 am in bottom liquor attendant area 3L 04/17/2021 at 11:15 am in bottom liquor attendant area 3K Rajan Marquez is aware of appointments and know to call with any questions or concerns. documented in this encounter Plan of Treatment Upcoming Encounters Date Type Department Care Team (Late st Contact Info) Description 01/20/2024 10:40 AM EST Office Visit Cardiology at [address] [address] Chrissy Zepeda APRN [facility] [place] [address] Scheduled Procedures Name Priority Associated Diagnoses Date/Ti me CARDIOVERSION-ELECTIVE (WRVU 2) atrial flutter ELECTROPHYSIOLOGY PROCEDURE Persistent atrial fibrillation CARDIOVERSION-ELECTIVE (WRVU 2) persistent atrial fibrillation TRANSESOPHAGEAL ECHOCARDIOGR AM (WRVU 2.3) persistent atrial fibrillation documented as of this encounter Visit Diagnoses Not on filedocumented in this encounter Care Teams Scale Balancer Relationship Specialty Start Date End Date Tami Olivia [address] [place] [address] PCP - General Family Medicine 12/30/20 documented as of this encounter
--- OUTSIDE RECORDS SUMMARY | 2023-12-26 16:01 | XMS_ITS | Encounter Summary ---
Author Organization [facility] Address [facility] [place] [address] Care Team Providers Care Rehabilitation Tech Name Role Phone Tami Olivia Primary Care Provider [phone] Reason for Referral * Diagnostic Test (Routine) - Closed Specialty Diagnoses / Procedures Referred By Bert gautam Referred To Contact Radiology Diagnoses 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 Procedures CT Chest w Contrast Gilmer Gutiérrez MD [facility] [place] [address] [facility] [place] [address] Referral ID Status Reason Start Date Expiration Date V isits Requested Visits Authorized [id number] Closed Specialty Service Requested 04/17/2021 10/15/2022 1 1 Encounter Details Date Type Department Care Team (Late st Contact Info) Description 04/17/2021 11:30 AM EST Office [place] [phone] Gilmer Gutiérrez MD [facility] [place] [address] Squamous cell carcinoma of left lung; Status [...] Marquez is a 70-year-old man with a [id number] smoking history referred to me for a 2.8 cm left upper lobe lung nodule who underwent thoracoscopic left upper lobectomyon March 29. The procedure was uncomplicated and he was [...] AM EST Office Visit Cardiology at [address] [address] Chrissy Zepeda, MORTEZA [facility] [place] [address] Scheduled Procedures Name Priority Associated Diagnoses Date/Ti [...] who have questions please contact the health livestock caretaker that requested your imaging first. ? Narrative [...] EDT) Creatinine 1.01 0.80 - 1.50 mg/dL [facility] Est Glomerular Filtration Rate 80 >=60 mL/min/1. 73 m?? [facility] Comment: This patient's estimated GFR [...] Resulting Agency Comment Spec In Lab iGlmer Gutiérrez MD CHEMISTRY ORDERA [place] [address] documented in this encounter Visit Diagnoses Diagnosis 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 Other postprocedural status 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 Other postprocedural status documented in this encounter Care Teams Rehabilitation Tech Relationship Specialty Start Date End Date Tami Olivia [address] [place] [address] PCP - General Family Medicine 12/30/20 documented as of this encounter
--- OUTSIDE RECORDS SUMMARY | 2023-12-26 16:01 | XMS_ITS | Encounter Summary ---
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 [address] [place] [address] Referral ID Status Reason Start Date Expiration Date V isits Requested Visits Authorized [id number] Closed Specialty Service Requested 11/14/2021 05/15/2023 1 1 Encounter Details Date Type Department Care Team (Latest Contact Info) Description 01/29/2022 12:10 PM EST - 01/29/2022 11:59 PM EST Hospital Encounter CT Scan at [facility] [place] [address] Gilmer Gutiérrez MD [facility] [place] [address] Status post lobectomy of lung; Primary squamous [...] 12/16/2023 Spiriva Respimat 2.5 mcg/actuation Mist 01/26/2022 rivaroxaban (Xarelto) 20 mg Tablet Take 20 [...] AM EST Office Visit Cardiology at [address] [place] [address] Chrissy Zepeda APRN [facility] [place] [address] Scheduled Procedures Name Priority Associated Diagnoses Date/Ti [...] have questions please contact the health career orientation teacher that requested your imaging first. ? Electronically signed by: Ludivina Cummings MD, [facility] ([phone]), at 01/29/2022 3:05 PM Narrative 01/29/2022 3:05 [...] who have questions please contactthe health career orientation teacher that requested your imaging first. Electronically signed by: Ludivina Cummings MD, [facility]([phone]), at 01/29/2022 3:05 PM Gilmer Gutiérrez MD [...] mLs documented in this encounter Care Teams Reweaver Relationship Specialty Start Date End Date Tami Olivia [address] [place] [address] PCP - General Family Medicine 12/30/20 documented as of this encounter
--- OUTSIDE RECORDS SUMMARY | 2023-12-26 16:02 | XMS_ITS | Encounter Summary ---
Author Organization [facility] Address [facility] [address] [place] [id number] Care Team Providers Care Animal Care Taker Name Role Phone Tami Olivia Primary Care Provider [phone] Reason for Visit * Consultation (Urgent) - Closed Specialty Diagnoses / Procedures Referred By Bert gautam Referred To Contact Otolaryngology Diagnoses Pharyngeal lesion PET avid left lateral pharyngeal wall uptake, please eval Patient is scheduled for Left Upper Lobe lung Lobectomy on 03/29/2021, Gilmer Gutiérrez MD [facility] [place] [address] [facility] Otolaryngology [address] [place] [phone] Referral ID Status Reason Start Date Expiration Date V isits Requested Visits Authorized [id number] Closed Consult, Test & Treat 02/13/2021 02/13/2022 1 1 Encounter Details Date Type Department Care Team (Late st Contact Info) Description 02/17/2021 2:00 PM EST Office [place] [address] Gunnar Cottrell III, MD [facility] [place] [place] [address] Pharyngeal candidiasis; Mucositis Social History [...] Visit: 02/17/2021 Location of Visit: Otolaryngology Clinic, [facility] Patient: Rajan Marquez ([id number]; 1950) Primary Care Provider: Tami Olivia Referring [...] no known allergies. Social History: Lives in [place] [address], Tobacco:Yes Alcohol:Yes Other: Immunizations UTD. Family History: [...] 10:40 AM EST Office Visit Cardiology at [address] [address] Chrissy Zepeda APRN [facility] [place] [place] [address] Scheduled Procedures Name Priority Associated Diagnoses Date/Ti [...] unspecified documented in this encounter Care Teams Animal Care Taker Relationship Specialty Start Date End Date Tami Olivia [address] [place] [address] PCP - General Family Medicine 12/30/20 documented as of this encounter
--- OUTSIDE RECORDS SUMMARY | 2023-12-26 16:02 | XMS_ITS | Encounter Summary ---
Author Organization [facility] Address [facility] [place] [address] Care Team Providers Care Grapple Yarder Operator Name Role Phone Tami Olivia Primary Care Provider [phone] Encounter Details Date Type Department Care Team (Late st Contact Info) Description 03/09/2021 Telephone Public Health at [facility] [place] [phone] Tamika [place] Social History Tobacco Use Types [...] ASK: TRAVEL ???Have you travelled outside of [place] ([place], [place], [place], [place], [place], [place]) in the past 14 days??? 2. [...] Transfer patient to the Covid-19 Hotline Number ([phone]) for further instructions. If 'No' to all of the questions above Is this the first test for Covid 19 Yes If no, please list date of previous test, result, and type of test (Molecular, Antigen, Antibody orunknown): Resides in Nursing/retirement or other residential setting No Employee or Household Member of Employee No Healthcare Worker No Telephone call placed/received to schedule Covid 19 testing with patient. Ordering provider: Dr. Gilmer Gutiérrez Testing Facility: [facility] Date of Testin03/26/2021 Time of Testin:30am Symptoms: No Give directions to testing facility. All passengers in the vehicle MUST wear a mask. Leave dogs/pets at home or have them crated/behind a net. * Telephone Encounter - Sayda Ortega - 03/09/2021 3:16 PM EST 03/09 - Rajan will check [facility] to see if he can have COVID [...] AM EST Office Visit Cardiology at [address] [place] [address] Chrissy Zepeda APRN [facility] [place] [address] Scheduled Procedures Name Priority Associated Diagnoses Date/Ti me CARDIOVERSION-ELECTIVE (WRVU 2) atrial flutter ELECTROPHYSIOLOGY PROCEDURE Persistent atrial fibrillation CARDIOVERSION-ELECTIVE (WRVU 2) persistent atrial fibrillation TRANSESOPHAGEAL ECHOCARDIOGR AM (WRVU 2.3) persistent atrial fibrillation documented as of this encounter Visit Diagnoses Not on filedocumented in this encounter Care Teams Grapple Yarder Operator Relationship Specialty Start Date End Date Tami Olivia [address] [place] [address] PCP - General Family Medicine 12/30/20 documented as of this encounter
--- OUTSIDE RECORDS SUMMARY | 2023-12-26 16:02 | XMS_ITS | Encounter Summary ---
Author Organization [facility] Address [facility] [place] [address] Care Team Providers Care Freight Traffic Consultant Name Role Phone Tami Olivia Primary Care Provider [phone] Reason for Referral * Consultation (Urgent) - Closed Specialty Diagnoses / Procedures Referred By Bert gautam Referred To Contact Otolaryngology Diagnoses Pharyngeal lesion PET avid left lateral pharyngeal wall uptake, please eval Patient is scheduled for Left Upper Lobe lung Lobectomy on 03/29/2021, Gilmer Gutiérrez MD [facility] [address] [place] [address] [facility] Otolaryngology [address] [place] [phone] Referral ID Status Reason Start Date Expiration Date V isits Requested Visits Authorized [id number] Closed Consult, Test & Treat 02/13/2021 02/13/2022 1 1 Encounter Details Date Type Department Care Team (Late st Contact Info) Description 02/13/2021 2:15 PM EST Office [place] [address] Gilmer Gutiérrez MD [facility] DR [place] [address] Mass of upper lobe of [...] and drinking. Your procedure will occur in field care manager area 4W. Please park in the parking garage and you will come into the [facility] on level 4. Go straight, all the way to the end of the soto, that is Same day surgery wooden desk also field care manager area 4W. Bronchoscopy is the term for [...] will receive a phone call from the [facility] Hotline [phone] prior to your surgery to schedule you an appointment. Please call the [facility] Hotline number with any questions or concerns. [...] Follow Up Note MD Matt Fischer PA-C [place] [address] FAX: Chief Complaint: Follow-up for spiculated 2.8 [...] Plan: 1. F/u on results of today's RI cardiac stress test 2. PSA for further [...] Dr. Gutiérrez. STEVE Arriaga 02/13/21 Thoracic Surgery [facility] * Gilmer Gutiérrez MD - 02/13/2021 2:15 PM EST Thoracic surgery follow-up visit I saw and examined Mr. Marquez with STEVE Brooks, and agree with her findings, assessment and plan. In brief: Chief complaint: Spiculated left upper lobe lung nodule History of present illness: Mr. Marquez is a 70-year-old man with a [id number] smoking history referred initially for a 2.8 [...] the prostate lesion, and referral to an hot punch press operator for direct examination of the pharynx. [...] AM EST Office Visit Cardiology at [address] [place] [address] Chrissy Zepeda APRN [facility] [place] [address] Scheduled Procedures Name Priority Associated Diagnoses Date/Ti [...] 3:56 PM EST) Neutrophil % 68.8 % [facility] Neutrophil Absolute 6.59(H) 1.70 - 6.10 x10(3)/[facility] Lymph % 23.4 % [facility] Lymphocytes Abs 2.2 0.9 - 3.2 x10(3)/[facility] Monocyte % 6.8 % [facility] Monocyte Abs 0.6 0.3 - 0.9 x10(3)/[facility] Eos % 0.3 % [facility] Eosinophils Abs 0.0 0.0 - 0.4 x10(3)/[facility] Basophil % 0.5 % [facility] Baso Absolute 0.0 0.0 - 0.1 x10(3)/[facility] Immature Gran % 0.20 % [facility] Comment: Immature granulocytes(IG's)percentage and absolute count will include metamyelocytes, myelocytes, and promyelocytes. Blood smears from CBCs yielding IG's will be scanned manually for concordance. If this scan disagrees with the automated IG or if promyelocytes are noted, a manual differential will be performed. Immature Gran Absolute 0.02 0.00 - 0.04 x10(3)/[facility] Blood 02/13/2021 3:56 PM EST 02/13/2021 4:15 PM EST Narrative Resulting Agency Comment Spec In Lab Gilmer Gutiérrez MD HEMATOLOGY ORDER PHILOMENA [facility] [place] [address] * (ABNORMAL) Hemogram (02/13/2021 3:56 PM EST) White Blood Cell 9.6(H) 4.0 - 9.5 x10(3)/[facility] Red Blood Cell 4.63 4.58 - 5.54 x10(6)/[facility] Hemoglobin 14.5 13.7 - 16.5 g/dL [facility] Hematocrit 42.1 40.5 - 48.5 % [facility] Mean Cell Volume 90.9 82.9 - 93.1 fL [facility] Mean Cell Hemoglobin 31.3 27.5 - 32.1 pg [facility] Mean Cell Hemoglobin Concentration 34.4 32.0 - 35.7 g/dL [facility] Platelet 202 145 - 357 x10(3)/mc L [facility] RDW Standard Deviation 43.0 36.0 - 45.0 [facility] RDW coefficient of variation 13.1 11.4 - 13.8 % [facility] Mean Platelet Volume 10.3 7.6 - 12.9 [facility] NRBC% auto 0.0 % [facility] NRBC Absolute 0.000 0.000 - 0.000 x10(3)/mc L [facility] Blood 02/13/2021 3:56 PM EST 02/13/2021 4:15 PM EST Narrative Resulting Agency Comment Spec In Lab Gilmer Gutiérrez MD HEMATOLOGY ORDER PHILOMENA Performing Organization Address [facility] Co de Phone Number [facility] [place] [address] * PSA (Ultrasensitive) (02/13/2021 3:56 PM EST) Prostate Specific Antigen (Ultrasensitive ) 2.71 0.00 - 4.00 ng/mL [facility] Comment: PLEASE NOTE: The above reference interval is intended for healthy males with an intact prostate. Values within this reference interval may indicate recurrence in men who have undergone radical prostatectomy. Blood 02/13/2021 3:56 PM EST 02/13/2021 4:15 PM EST Narrative Resulting Agency Comment Spec In Lab Gilmer Gutiérrez MD CHEMISTRY ORDERA BLES Performing Organization Address City/[facility]/ZIP Co de Phone Number [facility] [place] [address] * (ABNORMAL) Comprehensive metabolic panel (non-fasting) (02/13/2021 3:56 PM EST) Glucose 81 65 - 199 mg/dL [facility] Comment:Diabetes: >=200 mg/d L plus symptoms Blood Urea Nitrogen 21(H) 10 - 20 mg/dL [facility] Creatinine 1.02 0.80 - 1.50 mg/dL [facility] Sodium 142 135 - 145 mmol/L [facility] Potassium 3.9 3.5 - 5.0 mmol/L [facility] Comment: Please note: ??Patients with WBC >100,000 may have falsely elevated Potassium levels. ??For accurate Potassium quantification in these patients send serum separator tube (gold top) for subsequent determinations. ??Contact the Clinical Chemistry Laboratory if there are any questions. Chloride 106 98 - 107 mmol/L [facility] Carbon Dioxide 22 22 - 31 mmol/L [facility] Anion Gap 14 5 - 15 mmol/L [facility] Calcium 9.9 8.5 - 10.5 mg/dL [facility] Protein, Total 7.1 6.1 - 8.0 g/dL [facility] Albumin 4.4 3.2 - 5.2 g/dL [facility] Aspartate Aminotransferase 16 0 - 39 unit/L [facility] Alanine Aminotransferase 14 0 - 55 unit/L [facility] Alkaline Phosphatase 55 40 - 130 unit/L [facility] Bilirubin, Total 0.4 0.2 - 1.3 mg/dL [facility] Est Glomerular Filtration Rate 74 >=60 mL/min/1. 73 m?? [facility] Comment: This patient? s estimated [...] Lab Gilmer Gutiérrez MD CHEMISTRY ORDERA BLES [facility] [place] [address] * EKG 12 Lead (02/13/2021 3:15 PM EST) Ventricular rate 73 BPM MUSE SYSTEM Atrial Rate 73 BPM MUSE SYSTEM P-R Interval 170 ms MUSE SYSTEM QRS Duration 104 ms MUSE SYSTEM Q-T Interval 390 ms MUSE SYSTEM QTC Calculated (Bezet) 429 ms MUSE SYSTEM Calculated P Denton 83 degrees MUSE SYSTEM Calculated R [place]enton 88 degrees MUSE SYSTEM Calculated T Denton 57 degrees MUSE SYSTEM INTERPRETATION Sinus rhythm with Premature atrial complexes Otherwise normal ECG When compared with ECG of 16-JAN-2021 14:36, No significant change was found Confirmed by MD Chaka, Srini Cottrell ([id number]) on 02/16/2021 9:29:07 AM MUSE SYSTEM 02/13/2021 3:15 PM EST 02/16/2021 9:29 AM EST Gilmer Gutiérrez MD ECG ORDERABLES Performing Organization Address [facility] Co de Phone Number MUSE SYSTEM documented in this encounter Visit Diagnoses Diagnosis Mass of upper lobe of left lung Prostate enlargement Hypertrophy of prostate without urinary obstruction and other lower urinary tract symptoms (LUTS) Pharyngeal lesion Unspecified disease of pharynx documented in this encounter Care Teams Freight Traffic Consultant Relationship Specialty Start Date End Date Tami Olivia [address] [place] [address] PCP - General Family Medicine 12/30/20 documented as of this encounter
--- OUTSIDE RECORDS SUMMARY | 2023-12-26 16:02 | XMS_ITS | Encounter Summary ---
Author Organization [facility] Address [facility] [place] [address] Care Team Providers Care Customer Acquisition Manager Name Role Phone Tami Olivia Primary Care Provider [phone] Encounter Details Date Type Department Care Team (Late st Contact Info) Description 01/23/2021 Telephone [place] [phone] Anali Benítez Social History Tobacco Use Types [...] 10:40 AM EST Office Visit Cardiology at [address] [phone] Chrissy Zepeda, MORTEZA [facility] [place] [address] Scheduled Procedures Name Priority Associated Diagnoses Date/Ti me CARDIOVERSION-ELECTIVE (WRVU 2) atrial flutter ELECTROPHYSIOLOGY PROCEDURE Persistent atrial fibrillation CARDIOVERSION-ELECTIVE (WRVU 2) persistent atrial fibrillation TRANSESOPHAGEAL ECHOCARDIOGR AM (WRVU 2.3) persistent atrial fibrillation documented as of this encounter Visit Diagnoses Not on filedocumented in this encounter Care Teams Customer Acquisition Manager Relationship Specialty Start Date End Date Tami Olivia [address] [place] [address] PCP - General Family Medicine 12/30/20 documented as of this encounter
--- OUTSIDE RECORDS SUMMARY | 2023-12-26 16:02 | XMS_ITS | Encounter Summary ---
Author Organization [facility] Address [place] [address] Care Team Providers Care Machine Plate Stacker Name Role Phone Tami Olivia Primary Care Provider [phone] Reason for Referral * Diagnostic Test (Routine) - Closed Specialty Diagnoses / Procedures Referred By Bert gautam Referred To Contact Radiology Diagnoses Mass of upper lobe of left lung Pre-operative cardiovascular examination, high risk surgery Procedures MRI Brain wwo Contrast (Generic) Gilmer Gutiérrez MD [facility] [place] [address] [place] [address] Referral ID Status Reason Start Date Expiration Date V isits Requested Visits Authorized [id number] Closed Specialty Service Requested 01/16/2021 07/16/2022 1 1 Reason for Visit * Diagnostic Test (Routine) - Closed Specialty Diagnoses / Procedures Referred By Contlisa t Referred To Contact Radiology Diagnoses Mass of upper lobe of left lung Pre-operative cardiovascular examination, high risk surgery Procedures MRI Brain wwo Contrast (Generic) Gilmer Gutiérrez MD [facility] [place] [address] [place] [address] Referral ID Status Reason Start Date Expiration Date V isits Requested Visits Authorized [id number] Closed Specialty Service Requested 01/16/2021 07/16/2022 1 1 Encounter Details Date Type Department Care Team (Latest Contact Info) Description 02/10/2021 7:42 AM EST - 02/10/2021 8:40 AM EST Hospital En[place] [address] Gilmer Gutiérrez MD [facility] [place] [address] Mass of upper lobe of left lung; [...] w/sensor 4 times daily as needed. 12/16/2023 lisinopriL (Zestril) 5 mg Tablet Take 10 [...] AM EST Office Visit Cardiology at [address] [address] Chrissy Zepeda APRN [facility] [place] [address] Scheduled Procedures Name Priority Associated Diagnoses Date/Ti [...] who have questions please contact the health hospice care consultant that requested your imaging first. ? Electronically signed by: Ness Murillo MD, [facility] ([phone]), at 02/10/2021 3:23 PM Narrative 02/10/2021 3:23 [...] patients who have questions please contactthe health hospice care consultant that requested your imaging first. Electronically signed by: Ness Murillo MD, [facility]([phone]), at 02/10/2021 3:23 PM Gilmer Gutiérrez MD [...] mLs documented in this encounter Care Teams Machine Plate Stacker Relationship Specialty Start Date End Date Tami Olivia [address] [place] [address] PCP - General Family Medicine 12/30/20 documented as of this encounter
--- OUTSIDE RECORDS SUMMARY | 2023-12-26 16:02 | XMS_ITS | Encounter Summary ---
Author Organization [facility] Address [facility] [place] [address] Care Team Providers Care Mounter Sousaphones Name Role Phone Tami Olivia Primary Care Provider [phone] [phone] Encounter Details Date Type Department Care Team (Latest Contact Info) Description 02/13/2021 2:30 PM EST Clinical Support Tobacco Treatment at [facility] [place] [address] Anali Benítez Cigarette nicotine dependence without complication [...] 10:40 AM EST Office Visit Cardiology at [address] [address] Chrissy Zepeda, [facility] [place] [address] Scheduled Procedures Name Priority Associated Diagnoses Date/Ti me CARDIOVERSION-ELECTIVE (WRVU 2) atrial flutter ELECTROPHYSIOLOGY PROCEDURE Persistent atrial fibrillation CARDIOVERSION-ELECTIVE (WRVU 2) persistent atrial fibrillation TRANSESOPHAGEAL ECHOCARDIOGR AM (WRVU 2.3) persistent atrial fibrillation documented as of this encounter Visit Diagnoses Diagnosis Cigarette nicotine dependence without complication Tobacco use disorder documented in this encounter Care Teams Mounter Sousaphones Relationship Specialty Start Date End Date Tami Olivia [address] [place] [address] PCP - General Family Medicine 12/30/20 documented as of this encounter
--- OUTSIDE RECORDS SUMMARY | 2023-12-26 16:02 | XMS_ITS | Encounter Summary ---
Author Organization [facility] Address [facility] [place] [address] Care Team Providers Care Wireless Telegrapher Name Role Phone Tami Olivia Primary Care Provider [phone] Reason for Referral * Diagnostic Test (Routine) - Closed Specialty Diagnoses / Procedures Referred By Contac t Referred To Contact Radiology Diagnoses Mass of upper lobe of left lung Pre-operative cardiovascular examination, high risk surgery Procedures NM Exercise Stress CT Component Gilmer Gutiérrez MD [facility] [place] [address] [place] [address] Referral ID Status Reason Start Date Expiration Date V isits Requested Visits Authorized [id number] Closed Specialty Service Requested 02/09/2021 03/26/2021 1 1 Reason for Visit * Diagnostic Test (Routine) - Closed Specialty Diagnoses / Procedures Referred By Contac t Referred To Contact Radiology Diagnoses Mass of upper lobe of left lung Pre-operative cardiovascular examination, high risk surgery Procedures NM Exercise Stress CT Component Gilmer Gutiérrez MD [facility] [place] [address] [place] [address] Referral ID Status Reason Start Date Expiration Date V isits Requested Visits Authorized [id number] Closed Specialty Service Requested 02/09/2021 03/26/2021 1 1 Encounter Details Date Type Department Care Team (Latest Contact Info) Description 02/13/2021 10:03 AM EST - 02/13/2021 12:55 PM EST Hospital En[place] [address] Gilmer Gutiérrez MD [facility] [place] [address] Mass of upper lobe of left lung; [...] AM EST Office Visit Cardiology at [address] [phone] Chrissy Zepeda APRN [facility] [place] [address] Scheduled Procedures Name Priority Associated Diagnoses Date/Ti [...] have questions please contact the health medicare sales representative that requested your imaging first. ? Electronically signed by: Marcus Edwards MD, [facility] ([phone]), at 02/13/2021 4:12 PM Procedure Note Marcus [...] who have questions please contactthe health medicare sales representative that requested your imaging first. Electronically signed by: Marcus Edwards MD, [facility]([phone]), at 02/13/2021 4:12 PM Gilmer Gutiérrez MD [facility] [place] ORDERABLE S documented in this encounter Visit Diagnoses Diagnosis Mass of upper lobe of left lung Pre-operative cardiovascular examination, high risk surgery Pre-operative cardiovascular examination documented in this encounter Care Teams Wireless Telegrapher Relationship Specialty Start Date End Date Tami Olivia [address] [place] [address] PCP - General Family Medicine 12/30/20 documented as of this encounter
--- OUTSIDE RECORDS SUMMARY | 2023-12-26 16:02 | XMS_ITS | Referral Summary ---
Author Organization [facility] Address [address] [place] [address] Care Team Providers Care Air Cargo Specialist Supervisor Name Role Phone Tami Olivia Primary Care Provider [phone] Allergies Active Allergy Reactions Criticality Noted Date [...] Palpitations 11/05/2019 COPD (chronic obstructive pulmonary disease) ([facility]) 11/05/2019 ADHD 11/05/2019 Depression 11/05/2019 [...] of Treatment Not on file Care Teams Air Cargo Specialist Supervisor Relationship Specialty Start Date End Date Tami Olivia [address] [place] [address] PCP - General 12/04/19
--- OUTSIDE RECORDS SUMMARY | 2023-12-26 16:02 | XMS_ITS | Encounter Summary ---
Author Organization [facility] Address [facility] [place] [address] Care Team Providers Care Java Developer With Security Clearance Name Role Phone SudhakarJacksonTami Primary Care Provider [phone] Reason for Visit * Diagnostic Test (Routine) - Specialty Diagnoses / Procedures Referred By Bert gautam Referred To Contact Radiology Diagnoses Mass of upper lobe of left lung Pre-operative cardiovascular examination, high risk surgery Procedures NM Exercise Stress and Rest Myocardial Perfusion Gilmer Gutiérrez MD [facility] [address] [place]AC[place] [address] [facility] [place] [address] Referral ID Status Reason Start Date Expiration Date Visits Requested Visits Authorized [id number] Specialty Service Requested 02/09/2021 03/26/2021 4 4 Encounter Details Date Type Department Care Team (Latest Contact Info) Description 02/13/2021 10:02 AM EST Hospital Encounter [place] [address] Gilmer Gutiérrez MD [facility] [address] THORACIC [place] [address] Discharge Disposition: Home Social History [...] 10:40 AM EST Office Visit Cardiology at [address] [place] [address] Chrissy Zepeda APRN [facility] [place] [place] [address] Scheduled Procedures Name Priority Associated Diagnoses Date/Ti [...] who have questions please contact the health occasional caregiver that requested your imaging first. ? Electronically signed by: DARIO GOLDSMITH MD, [facility] ([phone]), at 02/13/2021 3:29 PM Narrative 02/13/2021 3:29 [...] patients who have questions please contactthe health occasional caregiver that requested your imaging first. Electronically signed by: DARIO GOLDSMITH MD, [facility]([phone]), at 02/13/2021 3:29 PM Gilmer Gutiérrez MD [facility] [place] ORDERABLE S documented in this encounter Visit Diagnoses Not on filedocumented in this encounter Care Teams Java Developer With Security Clearance Relationship Specialty Start Date End Date Tami Olivia [address] [place] [address] PCP - General Family Medicine 12/30/20 documented as of this encounter
--- OUTSIDE RECORDS SUMMARY | 2023-12-26 16:02 | XMS_ITS | Encounter Summary ---
Author Organization [facility] Address [facility] [place] [address] Care Team Providers Care Business Strategy Manager Name Role Phone Tami Olivia Primary Care Provider [phone] Encounter Details Date Type Department Care Team (Latest Contact Info) Description 02/13/2021 10:02 AM EST Hospital Encounter Non-Invasive [place] [address] Gilmer Gutiérrez MD [facility] [place] [address] Discharge Disposition: Home Social History Tobacco Use [...] AM EST Office Visit Cardiology at [address] [phone] Chrissy Zepeda APRN [facility] [place] [address] Scheduled Procedures Name Priority Associated Diagnoses Date/Ti [...] on filedocumented in this encounter Care Teams Business Strategy Manager Relationship Specialty Start Date End Date Tami Olivia [address] [place] [address] PCP - General Family Medicine 12/30/20 documented as of this encounter
--- OUTSIDE RECORDS SUMMARY | 2023-12-26 16:02 | XMS_ITS | Clinical Summary ---
Author Organization [facility] Address [address] [place] [address] Care Team Providers Care Manager Fine Dining Name Role Phone Tami Olivia Primary Care Provider +1 [phone] Allergies Active Allergy Reactions Criticality Noted Date [...] Palpitations 11/05/2019 COPD (chronic obstructive pulmonary disease) ([facility]) 11/05/2019 ADHD 11/05/2019 Depression 11/05/2019 Tobacco [...] Cancer Screening 04/16/2023 04/16/2022, 022 Care Teams Manager Fine Dining Relationship Specialty Start Date End Date Tami Olivia [address] [place] [address] PCP - General 12/04/19
--- OUTSIDE RECORDS SUMMARY | 2023-12-26 16:02 | XMS_ITS | Encounter Summary ---
Author Organization [facility] Address [facility] [place] [address] Care Team Providers Care Grades 1 6 Tutor Name Role Phone Tami Olivia Primary Care Provider [phone] Reason for Referral * Diagnostic Test (Routine) - Closed Specialty Diagnoses / Procedures Referred By Bert gautam Referred To Contact Radiology Diagnoses Mass of upper lobe of left lung Pre-operative cardiovascular examination, high risk surgery Procedures MRI Brain wwo Contrast (Generic) Gilmer Foster MD [facility] [place] [address] [place] [address] Referral ID Status Reason Start Date Expiration Date V isits Requested Visits Authorized [id number] Closed Specialty Service Requested 01/16/2021 07/16/2022 1 1 * Diagnostic Test (Routine) - Specialty Diagnoses / Procedures Referred By Bert gautam Referred To Contact Radiology Diagnoses Mass of upper lobe of left lung Pre-operative cardiovascular examination, high risk surgery Procedures NM Exercise Stress and Rest Myocardial Perfusion Gilmer Foster MD [facility] [place] [address] [facility] [place] [address] Referral ID Status Reason Start Date Expiration Date Visits Requested Visits Authorized [id number] Specialty Service Requested 02/09/2021 03/26/2021 4 4 * Diagnostic Test (Routine) - Closed Specialty Diagnoses / Procedures Referred By Contac t Referred To Contact Radiology Diagnoses Mass of upper lobe of left lung Pre-operative cardiovascular examination, high risk surgery Procedures NM Exercise Stress CT Component Gilmer Foster MD [facility] [place] [address] [place] [address] Referral ID Status Reason Start Date Expiration Date V isits Requested Visits Authorized [id number] Closed Specialty Service Requested 02/09/2021 03/26/2021 1 1 * Diagnostic Test (Routine) - Closed Specialty Diagnoses / Procedures Referred By Contac t Referred To Contact Radiology Diagnoses Mass of upper lobe of left lung Pre-operative cardiovascular examination, high risk surgery Procedures NM PET CT Skull Base to Mid-thigh Gilmer Foster MD [facility] [place] [address] [place] [address] Referral ID Status Reason Start Date Expiration Date V isits Requested Visits Authorized [id number] Closed Specialty Service Requested 01/27/2021 03/13/2021 1 1 Reason for Visit * Reason Comments Advice Only * Consultation (Urgent) - Closed Specialty Diagnoses / Procedures Referred By Contac t Referred To Contact Thoracic Surgery Diagnoses Other nonspecific abnormal finding of lung field Nicotine dependence, unspecified, uncomplicated Other nonspecific abnormal finding of lung field Tami Olivia [address] [place] [address] [facility] Surg [address] [place] [phone] Referral ID Status Reason Start Date Expiration Date V isits Requested Visits Authorized [id number] Closed Consult, [facility] PCP Updated and/or Approved 12/30/2020 12/30/2021 6 6 Encounter Details Date Type Department Care Team (Latest Contact Info) Description 01/16/2021 1:45 PM EST Office [place] [address] Gilmer Foster MD [facility] [place] [address] Mass of upper lobe of left lung; [...] check in for you PET scan at [facility]. Please refrain from eating or [...] will check in for your MRI at [facility]. Please remember to remove all [...] weigh more than 300 pounds please call [phone] weekdays 8 to 4pm and tell the appointment fishing guide. This information will help us choose the best way to schedule your test. *If you have diabetes and take insulin, tell the fishing guide scheduling your appointment. We need to work [...] 5:00pm. Please check in at the 3 executive receptionist desk on the day of your test. You will be having a stress test. A stress test shows how well your heart works with increased demands on it. You will check in for your stress test at [facility]. You must refrain from eatingor [...] of certain lung disorders. You will check [facility] for your Pulmonary Function Testing. [...] Marquez is a 70-year-old man with a [id number] smoking history who had a screening chest [...] Outpatient Consultation Note MD Matt Fischer [place] [address] Date of Consultation: 01/16/2021 This consultation has been requested by PCP: Tami Olivia Referring Physician: Tami Olivia [address] [place] [id number] Purpose for Consultation: Spiculated 2.8 cm ARACELI [...] positives as documented per HPI. Patient denies RI/stroke/TIA/DVT/PE/cancer, problems with kidneys/liver/bleeding/anesthesia, fevers, [...] Dr. Foster. STEVE Arriaga 01/16/2021 Thoracic Surgery [facility] documented in this encounter Plan of Treatment Upcoming Encounters Date Type Department Care Team (Late st Contact Info) Description 01/20/2024 10:40 AM EST Office Visit Cardiology at [address] [place] [address] Chrissy Zepeda APRN [facility] [place] [address] Scheduled Procedures Name Priority Associated Diagnoses Date/Ti [...] / FVC LLN 63 % COMPAS PFT RSV28-52 Actual Pre-BD 3.63 L/s COMPAS PFT ULA65-87 Pre-BD % of Predicted 159 % COMPAS PFT TDZ85-93 Predicted 2.29 L/s COMPAS PFT RQS94-97 Pre-BD Z-Score 1.24 COMPAS PFT DLCO Hb [...] questions please contact the health home care consultant that requested your imaging first. ? Electronically signed by: Marcus Edwards MD, [facility] ([phone]), at 02/13/2021 4:12 PM Procedure Note Marcus [...] have questions please contactthe health home care consultant that requested your imaging first. Electronically signed by: Marcus Edwards MD, [facility]([phone]), at 02/13/2021 4:12 PM Gilmer Foster MD [...] questions please contact the health home care consultant that requested your imaging first. ? Electronically signed by: TIERA TORRES MD, [facility] ([phone]), at 02/13/2021 3:29 PM Narrative 02/13/2021 3:29 [...] have questions please contactthe health home care consultant that requested your imaging first. Electronically signed by: TIERA TORRES MD, [facility]([phone]), at 02/13/2021 3:29 PM Gilmer Foster MD [...] questions please contact the health home care consultant that requested your imaging first. ? Electronically signed by: Fei Larson MD, [facility] ([phone]), at 02/10/2021 3:25 PM Narrative 02/10/2021 3:25 PM EST EXAMINATION: NM PET CT STANDARD SKULL BASE TO MID-THIGH CLINICAL HISTORY: 70-year-old male with left upper lobe mass presenting for metastatic disease evaluation TECHNIQUE: Following IV injection of 79-xqfwsu-9-deoxyglucose (FDG) a standard uptake of approximately 60 [...] questions please contact the health home care consultant that requested your imaging first. ? Electronically signed by: Ness Murillo MD, [facility] ([phone]), at 02/10/2021 3:23 PM Narrative 02/10/2021 3:23 [...] have questions please contactthe health home care consultant that requested your imaging first. Electronically signed by: Ness Murillo MD, [facility]([phone]), at 02/10/2021 3:23 PM Gilmer Foster MD IMG MRI ORDERABL ES * EKG 12 Lead (01/16/2021 2:36 PM EST) Ventricular rate 81 BPM MUSE SYSTEM Atrial Rate 81 BPM MUSE SYSTEM P-R Interval 168 ms MUSE SYSTEM QRS Duration 104 ms MUSE SYSTEM Q-T Interval 402 ms MUSE SYSTEM QTC Calculated (Bezet) 466 ms MUSE SYSTEM Calculated P [place] 79 degrees MUSE SYSTEM Calculated R [place] 99 degrees MUSE SYSTEM Calculated T [place] 15 degrees MUSE SYSTEM INTERPRETATION Sinus rhythm with Premature atrial complexes Rightward axis Borderline ECG No previous ECGs available Confirmed by Cindy Walker (Sanket) on 01/16/2021 6:40:13 PM MUSE SYSTEM 01/16/2021 [...] examination documented in this encounter Care Teams Grades 1 6 Tutor Relationship Specialty Start Date End Date Tami Olivia [address] [place] [address] PCP - General Family Medicine 12/30/20 documented as of this encounter
--- OUTSIDE RECORDS SUMMARY | 2023-12-26 16:02 | XMS_ITS | Encounter Summary ---
Author Organization [facility] Address [facility] [place] [address] Care Team Providers Care Continuous Pickling Line Pickler Name Role Phone Tami Olivia Primary Care Provider [phone] Encounter Details Date Type Department Care Team (Latest Contact Info) Description 02/13/2021 12:56 PM EST - 02/13/2021 11:59 PM EST Hospital Encounter Pulmonology at [facility] [place] [phone] Mass of upper lobe of left lung; [...] gummies to help with smoking cessation. 12/12/2023 lisinopriL (Zestril) 5 mg Tablet Take 10 [...] AM EST Office Visit Cardiology at [address] [phone] Chrissy Zepeda APRN [facility] [place] [address] Scheduled Procedures Name Priority Associated Diagnoses Date/Ti [...] / FVC LLN 63 % COMPAS PFT RHA25-59 Actual Pre-BD 3.63 L/s COMPAS PFT LYX42-30 Pre-BD % of Predicted 159 % COMPAS PFT QKO96-49 Predicted 2.29 L/s COMPAS PFT YZZ53-15 Pre-BD Z-Score 1.24 COMPAS PFT DLCO Hb [...] examination documented in this encounter Care Teams Continuous Pickling Line Pickler Relationship Specialty Start Date End Date Tami Olivia [address] [place] [address] PCP - General Family Medicine 12/30/20 documented as of this encounter
--- OUTSIDE RECORDS SUMMARY | 2023-12-26 16:02 | XMS_ITS | Encounter Summary ---
Author Organization [facility] Address [facility] [place] [address] Care Team Providers Care Rent And Housing Investigator Name Role Phone Tami Olivia Primary Care Provider [phone] Reason for Visit * Auth/Cert Specialty Diagnoses / Procedures Referred By Bert gautam Referred To Contact Diagnoses Mass of upper lobe of left lung left upper lobe lung mass Procedures PRO THORACOSCOPY SURG LOBECTOMY PRO BRONCHOSCOPY, DIAGNOSTIC @THORACOSCOPY,SURGICAL,W\LOBECTOMY, TOTAL OR SEGMENTAL (WRVU 24.64) BRONCHOSCOPY, DIAGNOSTIC (WRVU 2.78) Referral ID Status Reason Start Date Expiration Date Visits Re quested Visits Authorized [id number] 1 1 Encounter Details Date Type Department Care Team (Late st Contact Info) Description 03/29/2021 12:00 PM EST - 03/29/2021 4:45 PM EST [place] [id number] Gilmer Foster MD [facility] [place] [address] @THORACOSCOPY,SURGICAL ,W\LOBECTOMY,TOTAL OR SEGMENTAL (WRVU 24.64) Social [...] Primary * Renu Tan PA - Physician Human Resources Intern * Say Mo MD - Resident Procedure: [...] Rajan Marquez was admitted to [facility] on 03/29/2021 via the Same Day Program. [...] a nurse in the Thoracic Clinic at [phone]. After hours or on weekends or holidays please call: [phone] and ask to speak to the Thoracic [...] the Thoracic Clinic or the Thoracic Surgeon division chief after hours. Please take over the counter [...] Expires XR Chest PA & Lateral (Generic) [[id number] Custom] 04/15/2021 10/15/2021 Process Instructions: Scheduling Instructions: Questions: Where will study be performed?: [facility] Radiology Portable exam?: Reason for exam and clinical history: s/p LULobectomy Clinical information / bryan questions for radiologist: Stat read required?: Date of injury if applicable: Requested Time: Provider Contact Information: Primary Care Provider: Tami Olivia [phone] Discharge References/Attachments: Discharge References/Attachments None For questions regarding this document or issues relating to this hospitalization on the Thoracic Surgery Service, please contact Dr. Foster's office at . Signed: STEVE Black 04/01/2021 Thoracic Surgery [facility] CC: PCP: Tami Olivia Referring: Tami Olivia [address] [place] [address] documented in this encounter Discharge Instructions * [...] a nurse in the Thoracic Clinic at [phone]. After hours or on weekends or holidays please call: [phone] and ask to speak to the Thoracic [...] the Thoracic Clinic or the Thoracic Surgeon division chief after hours. Please take over the counter [...] Paredes RN - 04/01/2021 9:07 AM EST [facility] Short Stay Unit Discharge Note All [...] back on suction 1910: Hand off to Leonora, RN * Linda Mustafa PA - 03/31/2021 8:39 AM EST [facility] Department of Thoracic Surgery Inpatient Progress Note Patient Name: Rajan Marquez Patient : 1950 Patient Patient Location: [address] Attending Surgeon: GILMER FOSTER ID: Rajan [...] from 03/29/2021 in Short Stay Unit at [facility] Office Visit from 02/17/2021 in Otolaryngology at [facility] Weight 100.3 kilograms, or 221 pounds 1.6 [...] Result Value Ref Range Surgical Pathology Report [id number] Location: OR; OR11; A The signing pathologist has (i) examined the relevant preparation(s) for the specimen(s) and (ii) rendered or confirmed the diagnosis(es). . Frozen Section FROZEN SECTION DIAGNOSIS AFS - Left upper lobe wedge, excision (1) for frozen section Positive for non-small cell carcinoma. 03/29/21 13:48 Electronically signed by: Malia Lacy MD Verified: 03/29/2021 13:49 Pathologist Performed at: -[facility] Dept. of Pathology, [place], [place] This intraoperative consultation should be interpreted [...] STEVE Sethi 03/31/2021 Thoracic Surgery Service Pager [phone] * Debbie Pride RN - 03/30/2021 11:05 [...] outlinedin this evaluation. Time IN / OUT: 6056-1098 Total Minutes, Physical Therapy: 25 (mod complexity eval ) Michaela Butcher, PT Pager: [phone] Physical Therapy Inpatient Rehabilitation Department * Sandra [...] of functional outcome. Sandra Goncalves OTR/L Pager [phone] Occupational Therapy Rehabilitation Department * Yosef Butcher PA - 03/30/2021 9:34 AM EST [facility] Department of Thoracic Surgery Inpatient Progress Note Patient Name: Rajan Marquez Patient : 1950 Patient Patient Location: [address] Attending Surgeon: GILMER FOSTER ID: Rajan [...] from 03/29/2021 in Short Stay Unit at [facility] Office Visit from 02/17/2021 in Otolaryngology at [facility] Weight 100.3 kg (221 lb 1.6 oz) [...] Result Value Ref Range Surgical Pathology Report [id number] Location: OR; OR11; A The signing pathologist has (i) examined the relevant preparation(s) for the specimen(s) and (ii) rendered or confirmed the diagnosis(es). . Frozen Section FROZEN SECTION DIAGNOSIS AFS - Left upper lobe wedge, excision (1) for frozen section Positive for non-small cell carcinoma. 03/29/21 13:48 Electronically signed by: Malia Lacy MD Verified: 03/29/2021 13:49 Pathologist Performed at: -[facility] Dept. of Pathology, [place], [place] This intraoperative consultation should be interpreted [...] STEVE Lenz 03/30/2021 Thoracic Surgery Service Pager [phone] * Loreta Terrell APRN - 03/30/2021 9:19 AM EST [facility] Department of Thoracic Surgery Inpatient Post Op Check Note Patient Name: Rajan Marquez Patient : 1950 Patient Patient Location: [facility] Attending Surgeon: GILMER FOSTER ID: Rajan Marquez [...] from 03/29/2021 in Short Stay Unit at [facility] Office Visit from 02/17/2021 in Otolaryngology at [facility] Weight 100.3 kilograms, or 221 pounds 1.6 [...] I/O: I/O last 3 completed shifts: In: 2621 [I.V.:2350; Other:170; IV Piggyback:102] Out: 1680 [Urine:1635; Other:18; Blood:27] Labs: Recent Results (from the past 72 hour(s)) POCT Glucose Result Value Ref Range POC Glucose 89 65 - 199 mg/dL Surgical Pathology Report Result Value Ref Range Surgical Pathology Report [id number] Location: OR; OR11; A The signing pathologist has (i) examined the relevant preparation(s) for the specimen(s) and (ii) rendered or confirmed the diagnosis(es). . Frozen Section FROZEN SECTION DIAGNOSIS AFS - Left upper lobe wedge, excision (1) for frozen section Positive for non-small cell carcinoma. 03/29/21 13:48 Electronically signed by: Malia Lacy MD Verified: 03/29/2021 13:49 Pathologist Performed at: -[facility] Dept. of Pathology, [place], [place] This intraoperative consultation should be interpreted [...] Terrell APRN 03/30/2021 Thoracic Surgery Service Pager [phone] * Vanessa Salcedo RN - 03/29/2021 10:04 [...] Rosario MD - 03/29/2021 10:01 PM EST [facility] Department of Thoracic Surgery Inpatient Post Op Check Note Patient Name: Rajan Marquez Patient : 1950 Patient Patient Location: [address] Attending Surgeon: GILMER FOSTER ID: Rajan [...] from 03/29/2021 in Short Stay Unit at [facility] Office Visit from 02/17/2021 in Otolaryngology at [facility] Weight 100.3 kg (221 lb 1.6 oz) [...] Result Value Ref Range Surgical Pathology Report [id number] Location: OR; OR11; A The signing pathologist has (i) examined the relevant preparation(s) for the specimen(s) and (ii) rendered or confirmed the diagnosis(es). . Frozen Section FROZEN SECTION DIAGNOSIS AFS - Left upper lobe wedge, excision (1) for frozen section Positive for non-small cell carcinoma. 03/29/21 13:48 Electronically signed by: Malia Lacy MD Verified: 03/29/2021 13:49 Pathologist Performed at: -[facility] Dept. of Pathology, [place], [place] This intraoperative consultation should be interpreted [...] Rosario MD 03/29/2021 Thoracic Surgery Service Pager [phone] * Debbie Pride RN - 03/29/2021 5:39 [...] STEVE Noguera 03/29/2021 Thoracic Surgery Service Pager [phone] documented in this encounter Nursing Notes * [...] anticipated Patient is insured through: Primary Insurance: AAR MANAGED MEDICARE Payor: AAR MANAGED MEDICARE / [facility]IC[facility] COMPLETE / Product Type: *No Producttype* / Secondary Insurance: N/A Prescription Coverage: YES Preferred Pharmacy: No Pharmacies Listed This plan was formulated with input from patient and team. All are in agreement with plan. Initial IMM given: 03/30/21 11:18 AM OCM RS to provide DC IMM R. (Jose Manuel) CHRISTINA Salinas RN/CM - Cellphone: [phone] Pager: [phone] Covering Service RN/CM * Initial Assessments - [...] SO, would be surrogate decision maker per [place] surrogate decision making law. (Only good for 180 days) Any patient receiving care at [facility] must abide by [place] law. The hierarchy [...] (i) The agent with financial power of catalyst operator gasoline or a conservator appointed in accordance with [...] Current DME: none Home Address confirmed as: [address] [place] [address] Social & Family Supports: All names listed below confirmed with patient as current and correct Extended Emergency Contact Information Primary Emergency Contact: SHAY PARISH Address: [address] [place] [address] of [facility] [place] Relation: Life Partner Secondary Emergency [...] removed before discharge Health/Prescription Coverage: Primary Insurance: [facility] MANAGED MEDICARE Payor: [facility] MANAGED MEDICARE / Plan: [facility] MANAGED MEDICARE COMPLETE / Product Type: *No Producttype* / Secondary Insurance: N/A Prescription Coverage: Yes Preferred Pharmacy: No Pharmacies Listed Patient reports he uses [facility], [place], [place] Status: Patient is a : No Primary Care Provider: Tami Olivia [phone] Patient/Caregiver Goals of Treatment: 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 PHONE: [phone] FAX: [phone] Transportation: no concerns Transportation Anticipated: family or [...] Reyes RN CM(remote) Melania Salinas RN CM [phone] * Brief Op Note - Say Mo MD - 03/29/2021 4:35 PM EST Brief Operative Note Patient Name: Rajan Marquez : [id number] MR#: [id number] Case Date: 03/29/2021 Surgeon: Surgeon(s) and Role: * Gilmer Foster MD - Primary * Renu Tan PA - Physician Human Resources Intern * Say Mo MD - Resident Preoperative [...] SPECIMEN TO PATHOLOGY Freeze mass, not margin 74865 left upper lobe lung mass left upper lobe wedge excision YES, Please perform frozen section 03/29/2021 1:18 PM Number of tissue samples (in container) 1 Time specimen removed from patient: 1:18 PM PATHOLOGY ORDER UPDATE [id number] 03/29/2021 1:29 PM Additional information: Additional Info Enter requested changes: Fragment of tumor marked with stitch eD-H Order Id number [id number] SPECIMEN TO PATHOLOGY 62311 left upper lobe lung mass left upper lobectomy resection 03/29/2021 3:39 PM Number of tissue samples (in container) 1 Time specimen removed from patient: 3:36 PM SPECIMEN TO PATHOLOGY 56614 left upper lobe lung mass AP Window [...] Foster MD - 03/29/2021 1:01 PM EST [facility] Operative Note Patient Name: Rajan Marquez : [id number] MR#: [id number] Case Date: 03/29/2021 Surgeon: Surgeon(s) and Role: * Gilmer Foster MD - Primary * Renu Tan PA - Physician Human Resources Intern * Say Mo MD - Resident Preoperative [...] SPECIMEN TO PATHOLOGY Freeze mass, not margin 26892 left upper lobe lung mass left upper lobe wedge excision YES, Please perform frozen section 03/29/2021 1:18 PM Number of tissue samples (in container) 1 Time specimen removed from patient: 1:18 PM PATHOLOGY ORDER UPDATE [id number] 03/29/2021 1:29 PM Additional information: Additional Info Enter requested changes: Fragment of tumor marked with stitch eD-H Order Id number [id number] SPECIMEN TO PATHOLOGY 15880 left upper lobe lung mass left upper lobectomy resection 03/29/2021 3:39 PM Number of tissue samples (in container) 1 Time specimen removed from patient: 3:36 PM SPECIMEN TO PATHOLOGY 24793 left upper lobe lung mass AP Window lymph node excision 03/29/2021 3:55 PM Number of tissue samples (in container) 1 Time specimen removed from patient: 3:54 PM Drains: 28 [address] [place] chest tube, left Surgical Closure: Primary Closure [...] adequate. The aorticopulmonary window was explored and software sales representative lymph nodes were resected. After assessing each port site for hemostasis, a [address] [place] chest tube was placed through the camera [...] AM EST Office Visit Cardiology at [address] [id number] Chrissy Zepeda APRN [facility] [place] [address] Scheduled Procedures Name Priority Associated Diagnoses Date/Ti [...] Agent &/ Steroid Intercostal Nerve Single Level (71464) 03/29/2021 12:08 PM EST Mass of upper lobe of left lung Thoracoscopy With Mediastinal And Regional Lymphadenectomy 03/29/2021 12:08 PM EST Mass of upper lobe of left lung Bronchoscopy, Diagnostic (51727) 03/29/2021 12:08 PM EST Mass of upper lobe of left lung Thoracoscopy Surg Lobectomy (59058) 03/29/2021 12:08 PM EST Mass of upper [...] questions please contact the health health care sanitary technician that requested your imaging first. ? Electronically signed by: Savanna Lyles MD, [facility] ([phone]), at 04/17/2021 10:54 AM Narrative 04/17/2021 10:54 [...] have questions please contactthe health health care sanitary technician that requested your imaging first. Electronically signed by: Savanna Lyles MD, [facility]([phone]), at 04/17/2021 10:54 AM Gilmer Foster MD [...] questions please contact the health health care sanitary technician that requested your imaging first. ? [...] have questions please contactthe health health care sanitary technician that requested your imaging first. Gilmer Foster MD IMG DX ORDERABLE S * (ABNORMAL) Differential, Automated (04/01/2021 3:59 AM EST) Neutrophil % 74.5 % [facility] Neutrophil Absolute 7.27(H) 1.70 - 6.10 x10(3)/ L [facility] Lymph % 14.3 % [facility] Lymphocytes Abs 1.4 0.9 - 3.2 x10(3)/ L [facility] Monocyte % 9.1 % [facility] Monocyte Abs 0.9 0.3 - 0.9 x10(3)/[facility] Eos % 1.4 % [facility] Eosinophils Abs 0.1 0.0 - 0.4 x10(3)/[facility] Basophil % 0.3 % [facility] Baso Absolute 0.0 0.0 - 0.1 x10(3)/[facility] Immature Gran % 0.40 % [facility] Comment: Immature granulocytes(IG's)percentage and absolute count will include metamyelocytes, myelocytes, and promyelocytes. Blood smears from CBCs yielding IG's will be scanned manually for concordance. If this scan disagrees with the automated IG or if promyelocytes are noted, a manual differential will be performed. Immature Gran Absolute 0.04 0.00 - 0.04 x10(3)/ L [facility] Blood 04/01/2021 3:59 AM EST 04/01/2021 4:11 AM EST Narrative Resulting Agency Comment Spec In Lab Lacy Rosario MD HEMATOLOGY ORDERABLE S [facility] [place] [address] * (ABNORMAL) Hemogram (04/01/2021 3:59 AM EST) White Blood Cell 9.8(H) 4.0 - 9.5 x10(3)/ L [facility] Red Blood Cell 4.21(L) 4.58 - 5.54 x10(6)/ L [facility] Hemoglobin 12.9(L) 13.7 - 16.5 g/dL [facility] Hematocrit 38.6(L) 40.5 - 48.5 % [facility] Mean Cell Volume 91.7 82.9 - 93.1 fL [facility] Mean Cell Hemoglobin 30.6 27.5 - 32.1 pg [facility] Mean Cell Hemoglobin Concentration 33.4 32.0 - 35.7 g/dL [facility] Platelet 176 145 - 357 x10(3)/[facility] RDW Standard Deviation 44.7 36.0 - 45.0 [facility] RDW coefficient of variation 13.2 11.4 - 13.8 % [facility] Mean Platelet Volume 10.1 7.6 - 12.9 [facility] NRBC% auto 0.0 % [facility] NRBC Absolute 0.000 0.000 - 0.000 x10(3)/[facility] Blood 04/01/2021 3:59 AM EST 04/01/2021 4:11 AM EST Narrative Resulting Agency Comment Spec In Lab Lacy Rosario MD HEMATOLOGY ORDERABLE S [facility] [place] [address] * Phosphorus (04/01/2021 3:59 AM EST) Phosphorus 3.2 2.5 - 4.5 mg/dL [facility] Blood 04/01/2021 3:59 AM EST 04/01/2021 4:11 AM EST Narrative Resulting Agency Comment Spec In Lab Gilmer Foster MD CHEMISTRY ORDERA BLES [facility] [place] [address] * Magnesium (04/01/2021 3:59 AM EST) Magnesium 0.85 0.69 - 1.07 mmol/L [facility] Blood 04/01/2021 3:59 AM EST 04/01/2021 4:11 AM EST Narrative Resulting Agency Comment Spec In Lab Gilmer Foster MD CHEMISTRY ORDERA BLES Performing Organization Address [facility]/ZIP Co de Phone Number [facility] [place] [address] * (ABNORMAL) Basic Metabolic Panel (non-fasting) (04/01/2021 3:59 AM EST) Glucose 107 65 - 199 mg/dL [facility] Comment:Diabetes: >=200 mg/d L plus symptoms Blood Urea Nitrogen 22(H) 10 - 20 mg/dL [facility] Creatinine 1.27 0.80 - 1.50 mg/dL [facility] Sodium 137 135 - 145 mmol/L [facility] Potassium 4.3 3.5 - 5.0 mmol/L [facility] Comment: Please note: ??Patients with WBC >100,000 may have falsely elevated Potassium levels. ??For accurate Potassium quantification in these patients send serum separator tube (gold top) for subsequent determinations. ??Contact the Clinical Chemistry Laboratory if there are any questions. Chloride 104 98 - 107 mmol/L [facility] Carbon Dioxide 21(L) 22 - 31 mmol/L [facility] Anion Gap 12 5 - 15 mmol/L [facility] Calcium 8.8 8.5 - 10.5 mg/dL [facility] Est Glomerular Filtration Rate 56(L) >=60 mL/min/1. 73 m?? [facility] Comment: This patient? s estimated [...] Lab Gilmer Foster MD CHEMISTRY DAINA JOSIE [facility] [place] [address] * XR Chest PA & Lateral (Generic) [...] questions please contact the health health care sanitary technician that requested your imaging first. ? [...] have questions please contactthe health health care sanitary technician that requested your imaging first. Loreta Xander Casillas, MAIL DISTRIBUTION SCHEME EXAMINER IMG DX ORDERABL ES * XR Chest [...] questions please contact the health health care sanitary technician that requested your imaging first. ? Electronically signed by: Savanah Suazo MD, [facility] ([phone]), at 03/31/2021 11:31 AM Narrative 03/31/2021 11:31 [...] have questions please contactthe health health care sanitary technician that requested your imaging first. Electronically signed by: Savanah Suazo MD, [facility] ([phone]), at 03/31/2021 11:31 AM Gilmer Foster MD IMG DX ORDERABLE S * (ABNORMAL) Differential, Automated (03/31/2021 4:08 AM EST) Neutrophil % 71.6 % [facility] Neutrophil Absolute 7.59(H) 1.70 - 6.10 x10(3)/ L [facility] Lymph % 18.1 % [facility] Lymphocytes Abs 1.9 0.9 - 3.2 x10(3)/ L [facility] Monocyte % 8.7 % [facility] Monocyte Abs 0.9 0.3 - 0.9 x10(3)/ L [facility] Eos % 0.6 % [facility] Eosinophils Abs 0.1 0.0 - 0.4 x10(3)/[facility] Basophil % 0.5 % [facility] Baso Absolute 0.0 0.0 - 0.1 x10(3)/[facility] Immature Gran % 0.50 % [facility] Comment: Immature granulocytes(IG's)percentage and absolute count will include metamyelocytes, myelocytes, and promyelocytes. Blood smears from CBCs yielding IG's will be scanned manually for concordance. If this scan disagrees with the automated IG or if promyelocytes are noted, a manual differential will be performed. Immature Gran Absolute 0.05(H) 0.00 - 0.04 x10(3)/ L [facility] Blood 03/31/2021 4:08 AM EST 03/31/2021 4:16 AM EST Narrative Resulting Agency Comment Spec In Lab Lacy Rosario MD HEMATOLOGY ORDERABLE S [facility] [place] [address] * (ABNORMAL) Hemogram (03/31/2021 4:08 AM EST) [facility] White Blood Cell 10.6(H) 4.0 - 9.5 x10(3)/[facility] Red Blood Cell 3.99(L) 4.58 - 5.54 x10(6)/mc L [facility] Hemoglobin 12.3(L) 13.7 - 16.5 g/dL [facility] Hematocrit 36.1(L) 40.5 - 48.5 % [facility] Mean Cell Volume 90.5 82.9 - 93.1 fL [facility] Mean Cell Hemoglobin 30.8 27.5 - 32.1 pg [facility] Mean Cell Hemoglobin Concentration 34.1 32.0 - 35.7 g/dL [facility] Platelet 171 145 - 357 x10(3)/mc L [facility] RDW Standard Deviation 43.4 36.0 - 45.0 fL [facility] RDW coefficient of variation 13.2 11.4 - 13.8 % [facility] Mean Platelet Volume 10.1 7.6 - 12.9 fL [facility] NRBC% auto 0.0 % [facility] NRBC Absolute 0.000 0.000 - 0.000 x10(3)/mc L [facility] Blood 03/31/2021 4:08 AM EST 03/31/2021 4:16 AM EST Narrative Resulting Agency Comment Spec In Lab Lacy Rosario MD HEMATOLOGY ORDERABLE S Performing Organization Address City/[facility]/ZIP Co de Phone Number [facility] [place] [address] * Phosphorus (03/31/2021 4:08 AM EST) Phosphorus 3.2 2.5 - 4.5 mg/dL [facility] Blood 03/31/2021 4:08 AM EST 03/31/2021 4:16 AM EST Narrative Resulting Agency Comment Spec In Lab Gilmer Foster MD CHEMISTRY ORDERA BLES [facility] [place] [address] * Magnesium (03/31/2021 4:08 AM EST) Magnesium 0.86 0.69 - 1.07 mmol/L [facility] Blood 03/31/2021 4:08 AM EST 03/31/2021 4:16 AM EST Narrative Resulting Agency Comment Spec In Lab Gilmer Foster MD CHEMISTRY ORDERA JOSIE [facility] [place] [address] * (ABNORMAL) Basic Metabolic Panel (non-fasting) (03/31/2021 4:08 AM EST) Pathologist [facility] Glucose 114 65 - 199 mg/dL [facility] Comment:Diabetes: >=200 mg/d L plus symptoms Blood Urea Nitrogen 17 10 - 20 mg/dL [facility] Creatinine 1.22 0.80 - 1.50 mg/dL [facility] Sodium 138 135 - 145 mmol/L [facility] Potassium 3.8 3.5 - 5.0 mmol/L [facility] Comment: Please note: ??Patients with WBC >100,000 may have falsely elevated Potassium levels. ??For accurate Potassium quantification in these patients send serum separator tube (gold top) for subsequent determinations. ??Contact the Clinical Chemistry Laboratory if there are any questions. Chloride 105 98 - 107 mmol/L [facility] Carbon Dioxide 22 22 - 31 mmol/L [facility] Anion Gap 11 5 - 15 mmol/L [facility] Calcium 8.5 8.5 - 10.5 mg/dL [facility] Est Glomerular Filtration Rate 59(L) >=60 mL/min/1. 73 m?? [facility] Comment: This patient? s estimated [...] Lab Gilmer Foster MD CHEMISTRY ORDERA BLES [facility] [place] [address] * (ABNORMAL) XR Chest PA & Lateral [...] questions please contact the health health care sanitary technician that requested your imaging first. ? [...] have questions please contactthe health health care sanitary technician that requested your imaging first. Gilmer Foster MD IMG DX ORDERABLE S * (ABNORMAL) Differential, Automated (03/30/2021 4:04 AM EST) Neutrophil % 86.1 % [facility] Neutrophil Absolute 13.63(H) 1.70 - 6.10 x10(3)/mc L [facility] Lymph % 7.9 % [facility] Lymphocytes Abs 1.2 0.9 - 3.2 x10(3)/mc L [facility] Monocyte % 5.6 % [facility] Monocyte Abs 0.9 0.3 - 0.9 x10(3)/[facility] Eos % 0.0 % [facility] Eosinophils Abs 0.0 0.0 - 0.4 x10(3)/[facility] Basophil % 0.1 % [facility] Baso Absolute 0.0 0.0 - 0.1 x10(3)/[facility] Immature Gran % 0.30 % [facility] Comment: Immature granulocytes(IG's)percentage and absolute count will include metamyelocytes, myelocytes, and promyelocytes. Blood smears from CBCs yielding IG's will be scanned manually for concordance. If this scan disagrees with the automated IG or if promyelocytes are noted, a manual differential will be performed. Immature Gran Absolute 0.05(H) 0.00 - 0.04 x10(3)/[facility] Blood 03/30/2021 4:04 AM EST 03/30/2021 4:14 AM EST Narrative Resulting Agency Comment Spec In Lab Lacy Rosario MD HEMATOLOGY ORDERABLE S [facility] [place] [address] * (ABNORMAL) Hemogram (03/30/2021 4:04 AM EST) White Blood Cell 15.8(H) 4.0 - 9.5 x10(3)/[facility] Red Blood Cell 4.20(L) 4.58 - 5.54 x10(6)/[facility] Hemoglobin 13.1(L) 13.7 - 16.5 g/dL [facility] Hematocrit 37.5(L) 40.5 - 48.5 % [facility] Mean Cell Volume 89.3 82.9 - 93.1 fL [facility] Mean Cell Hemoglobin 31.2 27.5 - 32.1 pg [facility] Mean Cell Hemoglobin Concentration 34.9 32.0 - 35.7 g/dL [facility] Platelet 183 145 - 357 x10(3)/mc L [facility] RDW Standard Deviation 41.9 36.0 - 45.0 [facility] RDW coefficient of variation 12.9 11.4 - 13.8 % [facility] Mean Platelet Volume 10.3 7.6 - 12.9 fL [facility] NRBC% auto 0.0 % [facility] NRBC Absolute 0.000 0.000 - 0.000 x10(3)/mc L [facility] Blood 03/30/2021 4:04 AM EST 03/30/2021 4:14 AM EST Narrative Resulting Agency Comment Spec In Lab Lacy Rosario MD HEMATOLOGY ORDERABLE S Performing Organization Address City/[facility]/ZIP Co de Phone Number [facility] [place] [address] * Phosphorus (03/30/2021 4:04 AM EST) Phosphorus 3.1 2.5 - 4.5 mg/dL [facility] Blood 03/30/2021 4:04 AM EST 03/30/2021 4:14 AM EST Narrative Resulting Agency Comment Spec In Lab Gilmer Foster MD CHEMISTRY ORDERA BLES Performing Organization Address City/[facility]/ZIP Co de Phone Number [facility] [place] [address] * (ABNORMAL) Magnesium (03/30/2021 4:04 AM EST) Magnesium 0.67(L) 0.69 - 1.07 mmol/L [facility] Blood 03/30/2021 4:04 AM EST 03/30/2021 4:14 AM EST Narrative Resulting Agency Comment Spec In Lab Gilmer Foster MD CHEMISTRY ORDERA BLES [facility] [place] [address] * Basic Metabolic Panel (non-fasting) (03/30/2021 4:04 AM EST) Glucose 138 65 - 199 mg/dL [facility] Comment:Diabetes: >=200 mg/d L plus symptoms Blood Urea Nitrogen 20 10 - 20 mg/dL [facility] Creatinine 1.15 0.80 - 1.50 mg/dL [facility] Sodium 136 135 - 145 mmol/L [facility] Potassium 3.9 3.5 - 5.0 mmol/L [facility] Comment: Please note: ??Patients with WBC >100,000 may have falsely elevated Potassium levels. ??For accurate Potassium quantification in these patients send serum separator tube (gold top) for subsequent determinations. ??Contact the Clinical Chemistry Laboratory if there are any questions. Chloride 103 98 - 107 mmol/L [facility] Carbon Dioxide 22 22 - 31 mmol/L [facility] Anion Gap 11 5 - 15 mmol/L [facility] Calcium 8.9 8.5 - 10.5 mg/dL [facility] Est Glomerular Filtration Rate 64 >=60 mL/min/1. 73 m?? [facility] Comment: This patient? s estimated [...] Lab Gilmer Foster MD CHEMISTRY CARMEN GALINDO [facility] [place] [address] * XR Chest One View (03/29/2021 5:35 [...] questions please contact the health health care sanitary technician that requested your imaging first. ? Electronically signed by: Casa Sanchez MD, [facility] ([phone]), at 03/29/2021 5:37 PM Narrative 03/29/2021 5:37 [...] have questions please contactthe health health care sanitary technician that requested your imaging first. Electronically signed by: Casa Sanchez MD, [facility]([phone]), at 03/29/2021 5:37 PM Gilmer Foster MD IMG DX ORDERABLE S * Specimen to Pathology (03/29/2021 3:55 PM EST) AP Specimen 03/29/2021 3:55 PM EST 03/29/2021 3:55 PM EST Narrative [facility] - 03/29/2021 3:55 PM EST Specimen requisition ordered. ??Separate Pathology report to follow Gilmer Foster MD PATHOLOGY/CYTOLO GY ORDERABLES [facility] [place] [address] * Specimen to Pathology (03/29/2021 3:39 PM EST) AP Specimen 03/29/2021 3:39 PM EST 03/29/2021 3:39 PM EST Narrative [facility] - 03/29/2021 3:39 PM EST Specimen requisition ordered. ??Separate Pathology report to follow Gilmer Foster MD PATHOLOGY/CYTOLO GY ORDERABLES [facility] [place] [address] * Solid Tumor NGS Panel (03/29/2021 1:18 PM EST) Tissue 03/29/2021 1:18 PM EST 04/10/2021 2:38 PM EST Narrative Resulting Agency Comment Spec In Lab Gilmer Foster MD PATHOLOGY/CYTOLO GY ORDERABLES Performing Organization Address [facility] Co de Phone Number [facility] [place] [address] * Surgical Pathology Report (03/29/2021 1:18 PM EST) Final Diagnosis [id number] ? Location: [facility]; [address] The signing pathologist has (i) examined [...] The assay was performed according to the sport psychologist's instructions using Anti-PD-L1 (22C3, pharmDX) antibody. Electronically signed by: ?Eugene FLORES PhD, Alysia Verified: ??04/12/2021 8:54 ?? Pathologist Performed at: ??-[facility] Dept. of Pathology, [place], [place] ?Surgical Pathology DIAGNOSIS A) Left upper [...] Soriano Verified: ??04/09/2021 11:33 ??Pathologist Performed at: ??-[facility] Dept. of Pathology, [place], [place] SYNOPTIC Specimen ? Procedure: ??Lobectomy ? [...] These foci are ?favored to represent entrapped [place] mucin cells; however, the possibility ?of focal glandular carcinoma differentiation cannot be entirely excluded. Tumor Block(s): ??B7 Normal Block(s): ??C1 [facility] January 2021 Release DISCUSSION Tumor somatic mutation testing and PD-L1 IHC testing have been ordered and will be reported separately. ADDITIONAL STUDIES Whole slide scan: software sales representative slide(s) EVG stains were evaluated [...] ?Negative B5 ? p40 ?Positive B5 ? [id number] ? Positive B6 ? [id number] ? Positive B8 ? p40 ?Positive B8 [...] is submitted for frozen section: FS 1-lesion. Traffic Signal Repairer sections in 3 cassettes as follows: ?A1: ??FS1 frozen section remnant/lesion ?A2: ??Closest staple line (including possible residual lesion) ?A3: ??Traffic Signal Repairer lung parenchyma adjacent to lesion B - [...] of friable pleural disruption is inked blue Traffic Signal Repairer sections in 14 cassettes as follows: ?B1: ??Bronchial margin, en face ?B2: ??Vascular margins, en face ?B3: ??Parenchymal staple margin ?B4: ??Prior wedge staple line ?B5-B7: ??Mass in relation to disrupted pleura (inked blue) ?B8-B9: ??Mass with adjacent uninvolved lung parenchyma . SPECIMEN PROCESSING ?B10: ??Traffic Signal Repairer uninvolved lung parenchyma ?B11: ??Single intact lobar [...] Swann Verified: ??03/29/2021 13:49 ??Pathologist Performed at: ??-[facility] Dept. of Pathology, [place], [place] This intraoperative consultation should be interpreted as a preliminary diagnosis pending review of the entire specimen and special studies, if any. A final Surgical Pathology report will follow this preliminary Frozen Section report(s). 04/12/2021 8:54 AM EST [facility] LYMPH NODE SPECIMEN / Unknown 03/29/2021 1:18 PM EST 03/29/2021 1:18 PM EST LUNG STRUCTURE / Unknown 03/29/2021 1:18 PM EST 03/29/2021 1:18 PM EST LYMPH NODE SPECIMEN / Unknown 03/29/2021 1:18 PM EST 03/29/2021 1:18 PM EST Gilmer Foster MD PATHOLOGY/CYTOLO GY ORDERABLES [facility] [place] [address] * Specimen to Pathology (03/29/2021 1:18 PM EST) AP Specimen 03/29/2021 1:18 PM EST 03/29/2021 1:18 PM EST Narrative [facility] - 03/29/2021 1:18 PM EST Specimen requisition ordered. ??Separate Pathology report to follow Gilmer Foster MD PATHOLOGY/CYTOLO GY ORDERABLES [facility] [place] [address] * POCT Glucose (03/29/2021 12:02 PM EST) Glucose, POC 89 65 - 199 mg/dL [facility] Comment: Supplemental ranges: <140 mg/dL before meals <180 mg/dL all other times of the day Blood 03/29/2021 12:0 2 PM EST 03/29/2021 12:02 PM EST Gilmer Foster MD POINT OF CARE TE ST ORDERABLES Performing Organization Address [facility] Co de Phone Number [facility] [place] [address] documented in this encounter Visit Diagnoses Diagnosis [...] RN) 0037 (Given - Provider: Leonora Kingsley, CHRISTINA)0539 (Given - Provider: Leonora Kingsley, CHRISTINA)1200 (Given - Provider: Malia Paredes RN) albuteroL [...] like he needed breathing treatment prior to morning.)918 (Given - Provider: Debbie Pride RN)1441 (Given - Provider: Debbie Pride RN)2130 (Not Given - Provider: Gabi Cotto RN - Reason: Patient/family refused) 0422 (Given - Provider: Gabi Cotto RN)0907 (Given - Provider: Olamide Bucio, CHRISTINA)1433 (Given - Provider: Olamide Bucio RN)2205 (Given [...] Pride RN) 0144 (Given - Provider: Gabi Cotto, CHRISTINA)0911 (Given - Provider: Olamide Bucio RN)1753 (Given [...] Pride RN) 0633 (Given - Provider: Gabi Cotto, CHRISTINA)1753 (Given - Provider: Olamide Bucio RN) 0543 [...] RN)205 (Given - Provider: Gabi Cotto RN) 0908 [...] Stephanie 03/30/21 at 1015, Until Discontinued, Routine 1139 (Given [...] applied to a different site , Routine 0918 (Patch Applied - Provider: Debbie Pride RN) 09 (Patch Applied - Provider: Olamide Bucio RN) 09 (Patch Applied - Provider: Malia Paredes RN) nicotine (NICODERM CQ) 21 mg/24 hr patch Patch Removal(Linked Group 2) Transdermal, DAILY, First dose on Stephanie 03/30/21 [...] location) verified - Provider: Gabi Cotto RN) 899 (Patch (dose and location) verified - Provider: Olamide Bucio RN)2099 (Patch (dose and location) verified - Provider: Leonora Kingsley, CHRISTINA) 09 (Due) pantoprazole EC (Protonix) tablet 40 [...] Salcedo RN)0100 (Rate/Dose Verify - Provider: Vanessa Slacedo RN)0200 (Rate/Dose Verify - Provider: Vanessa Salcedo [...] tylenol/toradol, Routine 911 (Given - Provider: Debbie Pride, RN)2052 (Given - Provider: Gabi Cotto RN) [...] patch documented in this encounter Care Teams Rent And Housing Investigator Relationship Specialty Start Date End Date Tami Olivia [address] [place] [address] PCP - General Family Medicine 12/30/20 documented as of this encounter
--- OUTSIDE RECORDS SUMMARY | 2023-12-26 16:02 | XMS_ITS | Encounter Summary ---
Author Organization [facility] Address [facility] [place] [address] Care Team Providers Care Furniture Mover Name Role Phone SudhakarJacksonTami Primary Care Provider [phone] Reason for Referral * Diagnostic Test (Routine) - Closed Specialty Diagnoses / Procedures Referred By Contac t Referred To Contact Radiology Diagnoses Mass of upper lobe of left lung Pre-operative cardiovascular examination, high risk surgery Procedures NM PET CT Skull Base to Mid-thigh Gilmer Gutiérrez MD [facility] [place] [address] [place] [address] Referral ID Status Reason Start Date Expiration Date V isits Requested Visits Authorized [id number] Closed Specialty Service Requested 01/27/2021 03/13/2021 1 1 Reason for Visit * Diagnostic Test (Routine) - Closed Specialty Diagnoses / Procedures Referred By Contac t Referred To Contact Radiology Diagnoses Mass of upper lobe of left lung Pre-operative cardiovascular examination, high risk surgery Procedures NM PET CT Skull Base to Mid-thigh Gilmer Gutiérrez MD [facility] [place] [address] [place] [address] Referral ID Status Reason Start Date Expiration Date V isits Requested Visits Authorized [id number] Closed Specialty Service Requested 01/27/2021 03/13/2021 1 1 Encounter Details Date Type Department Care Team (Latest Contact Info) Description 02/10/2021 8:41 AM EST Hospital Encounter [place] [address] Gilmer Gutiérrez MD [facility] [place] [address] Mass of upper lobe of left lung; [...] 10:40 AM EST Office Visit Cardiology at [address] [place] [address] Chrissy Zepeda APRN [facility] [place] [address] Scheduled Procedures Name Priority Associated Diagnoses Date/Ti [...] who have questions please contact the health lawn care specialist that requested your imaging first. ? Electronically signed by: Fei Larson MD, [facility] ([phone]), at 02/10/2021 3:25 PM Narrative 02/10/2021 3:25 PM EST EXAMINATION: NM PET CT STANDARD SKULL BASE TO MID-THIGH CLINICAL HISTORY: 70-year-old male with left upper lobe mass presenting for metastatic disease evaluation TECHNIQUE: Following IV injection of 62-qkxuck-9-deoxyglucose (FDG) a standard uptake of approximately 60 [...] Arm documented in this encounter Care Teams Furniture Mover Relationship Specialty Start Date End Date Tami Olivia [address] [place] [address] PCP - General Family Medicine 12/30/20 documented as of this encounter
--- OUTSIDE RECORDS SUMMARY | 2023-12-26 16:02 | XMS_ITS | Encounter Summary ---
Author Organization [facility] Address [facility] [place] [address] Care Team Providers Care Distribution Systems Serviceperson Name Role Phone Tami Olivia Primary Care Provider [phone] Reason for Visit * Auth/Cert Specialty Diagnoses / Procedures Referred By Bert gautam Referred To Contact Diagnoses Mass of upper lobe of left lung left upper lobe lung mass Procedures PRO THORACOSCOPY SURG LOBECTOMY PRO BRONCHOSCOPY, DIAGNOSTIC @THORACOSCOPY,SURGICAL,W\LOBECTOMY, TOTAL OR SEGMENTAL (WRVU 24.64) BRONCHOSCOPY, DIAGNOSTIC (WRVU 2.78) Referral ID Status Reason Start Date Expiration Date Visits Re quested Visits Authorized [id number] 1 1 Encounter Details Date Type Department Care Team (Late st Contact Info) Description 03/26/2021 11:30 AM EST Public [place] [phone] COVID-19 ruled out Social History Tobacco Use [...] AM EST Office Visit Cardiology at [address] [phone] Chrissy Zepeda, [facility] [place] [address] Scheduled Procedures Name Priority Associated Diagnoses Date/Ti [...] EST) SARS-CoV-2 RNA Not Detected Not Detected [facility] Comment: This result should be interpreted [...] diagnosis of COVID-19 is performed using the [employer] m SARS-CoV-2 Assay as authorized by the FDA Emergency Use Authorization (EUA). This EUA assay is intended for In-vitro Diagnostic (IVD) use with respiratory specimens such as nasopharyngeal swabs collected from individuals during the acute phase of infection. This assay is performed based on the instructions for use provided by [employer] and additional guidance provided by CDC and FDA. Testing is performed in the [facility] Laboratory within the Department of Pathology and Laboratory Medicine at [facility], certified under the Clinical Laboratory [...] fact sheets at the following FDA website: https://www.fda.gov/medical-devices/uqyvqnjazzi-qyxydnr-5189-xjhmg-61-auimgxtpm- use-a emqfhuejhdfkj-kpnteir-kpsjdss/babfh-iqijjrpwxrd-iabt SARS-CoV-2 RNA Source AERONAUTICAL ENGINEERING TEACHER Swab [facility] Nasopharyngeal Swab 03/26/19 2:51 PM EST 03/26/2021 2:51 PM EST Comment:Symptoms->Asymptomat ic Narrative Resulting Agency Comment Spec In Lab Gilmer Gutiérrez MD MOLECULAR CARMEN GALINDO [facility] [place] [address] documented in this encounter Visit Diagnoses Diagnosis COVID-19 ruled out documented in this encounter Care Teams Distribution Systems Serviceperson Relationship Specialty Start Date End Date Tami Olivia [address] [place] [address] PCP - General Family Medicine 12/30/20 documented as of this encounter
--- OUTSIDE RECORDS SUMMARY | 2023-12-26 16:02 | XMS_ITS | Encounter Summary ---
Author Organization [facility] Address [facility] [place] [address] Care Team Providers Care Rn Primary Care Name Role Phone SudhakarJacksonTami Primary Care Provider [phone] Reason for Referral * Diagnostic Test (Routine) - Specialty Diagnoses / Procedures Referred By Bert t Referred To Contact Radiology Diagnoses Mass of upper lobe of left lung Pre-operative cardiovascular examination, high risk surgery Procedures NM Exercise Stress and Rest Myocardial Perfusion Gilmer Gutiérrez MD [facility] [place] [address] [place] [address] Referral ID Status Reason Start Date Expiration Date Visits Requested Visits Authorized [id number] Specialty Service Requested 02/09/2021 03/26/2021 4 4 Reason for Visit * Diagnostic Test (Routine) - Specialty Diagnoses / Procedures Referred By Contlisa t Referred To Contact Radiology Diagnoses Mass of upper lobe of left lung Pre-operative cardiovascular examination, high risk surgery Procedures NM Exercise Stress and Rest Myocardial Perfusion Gilmer Gutiérrez MD [facility] [place] [address] [place] [address] Referral ID Status Reason Start Date Expiration Date Visits Requested Visits Authorized [id number] Specialty Service Requested 02/09/2021 03/26/2021 4 4 Encounter Details Date Type Department Care Team (Latest Contact Info) Description 02/13/2021 10:01 AM EST Hospital Encounter Nuclear Medicine at [facility] [place] [phone] Gilmer Gutiérrez MD [facility] DR THORACIC SURGERY [place] [address] Mass of upper lobe of left lung; [...] AM EST Office Visit Cardiology at [address] [address] Chrissy Zepeda APRN [facility] [place] [address] Scheduled Procedures Name Priority Associated Diagnoses Date/Ti [...] who have questions please contact the health wound care coordinator that requested your imaging first. [...] patients who have questions please contactthe health wound care coordinator that requested your imaging first. Gilmer Gutiérrez [...] mCi documented in this encounter Care Teams Rn Primary Care Relationship Specialty Start Date End Date Tami Olivia [address] [place] [address] PCP - General Family Medicine 12/30/20 documented as of this encounter
--- OUTSIDE RECORDS SUMMARY | 2023-12-26 16:02 | XMS_ITS | Encounter Summary ---
Author Organization [facility] [place] [address] Care Team Providers Care Manufacturing Job Titles Name Role Phone Unavailable Primary Care Provider Unavailabl e Encounter Details Date Type Department Care Team (Late st Contact Info) Description 12/23/2020 Ancillary Procedure Radiology Library at [facility] [place] [address] Kasie Marcus MD [address] [place] [id number] Social History Tobacco Use Types Packs/Day Years [...] AM EST Office Visit Cardiology at [address] [place] [address] Chrissy Zepeda, [facility] [place] [address] Scheduled Procedures Name Priority Associated Diagnoses Date/Ti [...] Kasie Marcus MD IMG FILM LIBRARY ORDERABLES THU JIMENEZ [place] documented in this encounter Visit Diagnoses Not on filedocumented in this encounter
--- OUTSIDE RECORDS SUMMARY | 2023-12-26 16:02 | XMS_ITS | Encounter Summary ---
Author Organization [facility] [place] [address] Care Team Providers Care Dictionary Editor Name Role Phone Tami Olivia Primary Care Provider [phone] Encounter Details Date Type Department Care Team (Late st Contact Info) Description 02/27/2021 Telephone [place] [address] Megan Reza RN Social History [...] AM EST Office Visit Cardiology at [address] [address] Chrissy Zepeda APRN [facility] [place] [address] Scheduled Procedures Name Priority Associated Diagnoses Date/Ti me CARDIOVERSION-ELECTIVE (WRVU 2) atrial flutter ELECTROPHYSIOLOGY PROCEDURE Persistent atrial fibrillation CARDIOVERSION-ELECTIVE (WRVU 2) persistent atrial fibrillation TRANSESOPHAGEAL ECHOCARDIOGR AM (WRVU 2.3) persistent atrial fibrillation documented as of this encounter Visit Diagnoses Not on filedocumented in this encounter Care Teams Dictionary Editor Relationship Specialty Start Date End Date Tami Olivia [address] [place] [address] PCP - General Family Medicine 12/30/20 documented as of this encounter
--- OUTSIDE RECORDS SUMMARY | 2023-12-26 16:02 | XMS_ITS | Encounter Summary ---
Author Organization [facility] Address [facility] [place] [address] Care Team Providers Care Girl Friday Name Role Phone Tami Olivia Primary Care Provider [phone] Reason for Visit * Diagnostic Test (Routine) - Closed Specialty Diagnoses / Procedures Referred By Bert gautam Referred To Contact Radiology Diagnoses Mass of upper lobe of left lung Pre-operative cardiovascular examination, high risk surgery Procedures NM PET CT Skull Base to Mid-thigh Gilmer Gutiérrez MD [facility] [place] [address] [facility] [place] [address] Referral ID Status Reason Start Date Expiration Date V isits Requested Visits Authorized [id number] Closed Specialty Service Requested 01/27/2021 03/13/2021 1 1 Encounter Details Date Type Department Care Team (Latest Contact Info) Description 02/10/2021 8:42 AM EST - 02/10/2021 11:59 PM [facility] Hospital Encounter [place] [phone] Gilmer Gutiérrez MD [facility] [place] [address] Discharge Disposition: Home Social History [...] 10:40 AM EST Office Visit Cardiology at [address] [address] Chrissy Zepeda, MORTEZA [facility] [place] [address] Scheduled Procedures Name Priority Associated Diagnoses Date/Ti [...] Glucose, POC 90 65 - 199 mg/dL [facility] Comment: Supplemental ranges: <140 mg/dL before meals <180 mg/dL all other times of the day Blood 02/10/2021 9:13 AM EST 02/10/2021 9:13 AM EST Gilmer Gutiérrez MD POINT OF CARE TE ST ORDERABLES [facility] [place] [address] documented in this encounter Visit Diagnoses Not on filedocumented in this encounter Care Teams Girl Friday Relationship Specialty Start Date End Date Tami Olivia [address] [place] [address] PCP - General Family Medicine 12/30/20 documented as of this encounter
--- OUTSIDE RECORDS SUMMARY | 2023-12-26 16:02 | XMS_ITS | Encounter Summary ---
[facility] Address [facility] [place] [address] Care Team Providers Care Information Specialist Name Role Phone Tami Olivia Primary Care Provider [phone] Encounter Details Date Type Department Care Team (Late st Contact Info) Description 01/17/2021 Notes [place] [address] Anali Benítez Social History Tobacco Use Types [...] .. Anali Benítez, CTT[place] [address] [email or web address] HPI: Rajan Marquez is a 70 y.o. [...] () e-cigarette (X) Cigarettes Brand currently smoking: wilber Current amount: 1ppd Age initiated: 10yrs Years [...] in places where it is forbidden? (ex. mormonism) No Yes 0 3. Which cigarette would [...] The patient has been provided with a [facility] Smoking Cessation packet. The patient has my [...] steps: Anali Benítez 01/17/21 Tobacco Treatment Program [facility] documented in this encounter Plan of Treatment Upcoming Encounters Date Type Department Care Team (Late st Contact Info) Description 01/20/2024 10:40 AM EST Office Visit Cardiology at [address] [place] [address] Chrissy Zepeda APRN [facility] [place] [address] Scheduled Procedures Name Priority Associated Diagnoses Date/Ti me CARDIOVERSION-ELECTIVE (WRVU 2) atrial flutter ELECTROPHYSIOLOGY PROCEDURE Persistent atrial fibrillation CARDIOVERSION-ELECTIVE (WRVU 2) persistent atrial fibrillation TRANSESOPHAGEAL ECHOCARDIOGR AM (WRVU 2.3) persistent atrial fibrillation documented as of this encounter Visit Diagnoses Not on filedocumented in this encounter Care Teams Information Specialist Relationship Specialty Start Date End Date Tami Olivia [address] [place] [address] PCP - General Family Medicine 12/30/20 documented as of this encounter
--- OUTSIDE RECORDS SUMMARY | 2023-12-26 16:02 | XMS_ITS | Encounter Summary ---
Author Organization [facility] Address [facility] [place] [address] Care Team Providers Care Garment Worker Name Role Phone Tami Olivia Primary Care Provider [phone] Reason for Visit * Auth/Cert Specialty Diagnoses / Procedures Referred By Bert gautam Referred To Contact Diagnoses Mass of upper lobe of left lung left upper lobe lung mass Procedures PRO THORACOSCOPY SURG LOBECTOMY PRO BRONCHOSCOPY, DIAGNOSTIC @THORACOSCOPY,SURGICAL,W\LOBECTOMY, TOTAL OR SEGMENTAL (WRVU 24.64) BRONCHOSCOPY, DIAGNOSTIC (WRVU 2.78) Referral ID Status Reason Start Date Expiration Date Visits Re quested Visits Authorized [id number] 1 1 Encounter Details Date Type Department Care Team (Late st Contact Info) Description 03/29/2021 12:09 PM EST Anesthesia Event [place] [address] Anali Dubon MD [facility] [place] [address] Anesthesia Record Procedure Summary Procedure Name Responsible [...] 1638 Extubation/LMA Out 1642 an stop data 1652 Recovery or ICU Handoff Lucy ent care was transferred to the destination unit staff after review of the patient's medical history, current anesthetic/surgical status and plan, according to the Provider Handoff Checklist. 1653 Stop Meds Name Total IV Lidocaine 100 [...] 0802; median cubital vein (antecubital fossa), left; xlaw-waw-oshafm catheter system; Anatomical Landmarks; 20 gauge; Rosy; [...] upon assessment; 02/08/22 03/29/21 1307 by Sanket Murphy RN 02/08/22 0000 by Judie Carrasco RN (RETIRED) Peripheral IV Line - Single Lumen 03/29/21; 1341; metacarpal vein (top of hand), left; lvmu-pza-rnwajr catheter system; Anatomical Landmarks; 18 gauge; Kerry FLORES; removed per policy/procedure, site care per policy/procedure, site symptomatic, catheter/device intact; 03/31/21; 205503/29/21 1341 by Sommer Payne MD 03/31/212055 by Zora oBb RN Chest Tube 03/29/21; 1600; Left ; [...] Procedure Summary Date: 03/29/21 Room / Location: [facility] OR [address] [place] [address] MAIN OR Anesthesia Start: 1209 Anesthesia Stop: [...] All Anesthesia Providers: Anesthesiologist: Anali Dubon MD Biller: Sommer Payne MD Vitals Value Taken Time BP 123/56 03/29/21 1646 Temp 36.3 ??C (97.3 ??F) 03/29/21 1646 Pulse 73 03/29/21 1656 Resp 17 03/29/21 1656 SpO2 96 % 03/29/21 1656 Pain Level Vitals shown include unvalidated device data. Patient Location: PACU/[facility] Level of Consciousness: Awake and [...] AM EST Office Visit Cardiology at [address] [address] Chrissy Zepeda APRN [facility] [place] [address] Scheduled Procedures Name Priority Associated Diagnoses Date/Ti [...] mg documented in this encounter Care Teams Garment Worker Relationship Specialty Start Date End Date Tami Olivia [address] [place] [address] PCP - General Family Medicine 12/30/20 documented as of this encounter
--- OUTSIDE RECORDS SUMMARY | 2023-12-26 16:02 | XMS_ITS | Encounter Summary ---
Author Organization [facility] Address [facility] [place] [address] Care Team Providers Care Hide Sorter Name Role Phone SudhakarJacksonTami Primary Care Provider [phone] Reason for Visit * Diagnostic Test (Routine) - Specialty Diagnoses / Procedures Referred By Bert gautam Referred To Contact Radiology Diagnoses Mass of upper lobe of left lung Pre-operative cardiovascular examination, high risk surgery Procedures NM Exercise Stress and Rest Myocardial Perfusion Gilmer Gutiérrez MD [facility] [place] [address] [facility] [place] [address] Referral ID Status Reason Start Date Expiration Date Visits Requested Visits Authorized [id number] Specialty Service Requested 02/09/2021 03/26/2021 4 4 Encounter Details Date Type Department Care Team (Latest Contact Info) Description 02/13/2021 10:03 AM EST - 02/13/2021 12:55 PM [facility] Hospital Encounter [place] [address] Gilmer Gutiérrez MD [facility] [place] [address] Discharge Disposition: Home Social History [...] 10:40 AM EST Office Visit Cardiology at [address] [address] Chrissy Zepeda, MORTEZA [facility] [place] [address] Scheduled Procedures Name Priority Associated Diagnoses Date/Ti [...] who have questions please contact the health landcare facilitator that requested your imaging first. ? Electronically signed by: DARIO GOLDSMITH MD, [facility] ([phone]), at 02/13/2021 3:29 PM Narrative 02/13/2021 3:29 [...] patients who have questions please contactthe health landcare facilitator that requested your imaging first. Electronically signed by: DARIO GOLDSMITH MD, [facility]([phone]), at 02/13/2021 3:29 PM Gilmer Gutiérrez MD [...] mCi documented in this encounter Care Teams Hide Sorter Relationship Specialty Start Date End Date Tami Olivia [address] [place] [address] PCP - General Family Medicine 12/30/20 documented as of this encounter
--- OUTSIDE RECORDS SUMMARY | 2023-12-26 16:02 | XMS_ITS | Encounter Summary ---
Author Organization [facility] Address [facility] [place] [address] Care Team Providers Care Event Marketing Representative Name Role Phone Tami Olivia Primary Care Provider [phone] Reason for Visit * Reason Onset Date Comments Results 03/27/2021 Negative Covid f or Pre-op Encounter Details Date Type Department Care Team (Late st Contact Info) Description 03/27/2021 Telephone [place] [address] Gabriela Milligan, RN Results (Negative Covid for Pre-op) Social [...] 10:40 AM EST Office Visit Cardiology at [address] [phone] Chrissy Zepeda, SOFTWARE TEST MANAGER [facility] [address] [place], [place] [phone] Scheduled Procedures Name Priority Associated Diagnoses Date/Ti me CARDIOVERSION-ELECTIVE (WRVU 2) atrial flutter ELECTROPHYSIOLOGY PROCEDURE Persistent atrial fibrillation CARDIOVERSION-ELECTIVE (WRVU 2) persistent atrial fibrillation TRANSESOPHAGEAL ECHOCARDIOGR AM (WRVU 2.3) persistent atrial fibrillation documented as of this encounter Visit Diagnoses Not on filedocumented in this encounter Care Teams Event Marketing Representative Relationship Specialty Start Date End Date Tami Olivia [address] [place] [address] PCP - General Family Medicine 12/30/20 documented as of this encounter
--- OUTSIDE RECORDS SUMMARY | 2023-12-26 16:02 | XMS_ITS | Encounter Summary ---
Author Organization [facility] [place] [address] Care Team Providers Care Senior Oracle Adf Developer Name Role Phone Unavailable Primary Care Provider Unavailabl e Encounter Details Date Type Department Care Team (Late st Contact Info) Description 09/18/2019 Ancillary Procedure Radiology Library [facility] [place] [address] Kasie Marcus MD [address] [place] [address] [id number] Social History Tobacco Use Types Packs/Day Years [...] AM EST Office Visit Cardiology at [address] [place] [address] Chrissy Zepeda, WAISTLINE [facility] [place] [address] Scheduled Procedures Name Priority Associated Diagnoses Date/Ti [...] CT Chest (09/18/2019 12:00 AM EDT) Narrative RAD - 12/30/2020 10:46 AM EDT This exam is auto-finalizing. It's purpose is for storage only. Kasie Marcus MD IMG FILM LIBRARY ORDERABLES Performing Organization Address City/State/[facility] Co de Phone Number BARBARA [place], [place] documented in this encounter Visit Diagnoses Not on filedocumented in this encounter
--- OUTSIDE RECORDS SUMMARY | 2023-12-26 16:03 | XMS_ITS | Encounter Summary ---
Author Organization [facility] Address [address] [place] [address] Care Team Providers Care Antitank Assault Gunner Name Role Phone Tami Olivia Primary Care Provider [phone] Reason for Visit * Reason Comments Follow-up RS3PE syndrome, hand + joint pain - 1yr. Pt states feeling good as far as RA. Has had cancer, feeling very weak. New pharmacy-check? Encounter Details Date Type Department Care Team (Late st Contact Info) Description 04/20/2022 11:45 EST Office Visit [facility] Rheumatology [address] [place], [place] [phone] Mena Ng MD [address] [facility] [address] [place] [address] RS3PE syndrome (Primary Dx); RS3PE [...] Mena Ng MD - 04/20/2022 1145 EST [facility] -[place]heumatology follow up [...] Carcinoma of the left lung [place] [place]-lobectomy -recurrent left pleural effusion. HPI Rajan Marquez is here in follow up . New diagnosis of squamous cell ca of lung in 02/2022 at [facility] Allergies include: Cat dander and Dog dander [...] 01/26/2022 added in this encounter Care Teams Antitank Assault Gunner Relationship Specialty Start Date End Date Tami Olivia [address] [place] [address] PCP - General 12/04/19 documented as of this encounter
--- OUTSIDE RECORDS SUMMARY | 2023-12-26 16:03 | XMS_ITS | Encounter Summary ---
Author Organization [facility] Address [address] [place] [address] Care Team Providers Care Airline Ticket Agent Name Role Phone Tiffany Gutierres TRANSFORMER REPAIRER Primary Care Provider [phone] Encounter Details Date Type Department Care Team (Latest Contact Info) Description 04/28/2018 13:26 EST - 04/28/2018 23:59 EST Hospital Encounter [address] [address] Unknown, Provider, Discharge Disposition: Home or Self Care Social History Tobacco Use Types Packs/Day Years Used Date Smoking Tobacco: Never Assessed Sex and Gender Information Value Date Recorded Sex Assigned at Not on file Gender Identity Male 11/05/2019 8:00 EDT Sexual Orientation Not on file documented as of this encounter Discharge Disposition Disposition Code Departure Means Destination Home or Self Senior Care documented in this encounter Plan of Treatment Not on file documented as of this encounter Visit Diagnoses Not on filedocumented in this encounter Care Teams Airline Ticket Agent Relationship Specialty Start Date End Date Tiffany Gutierres NP [address] [place] [phone] PCP - General 02/07/12 11/04/19 documented as of this encounter
--- OUTSIDE RECORDS SUMMARY | 2023-12-26 16:03 | XMS_ITS | Encounter Summary ---
Author Organization [facility] Address [address] [place] [address] Care Team Providers Care Preschool Teacher Aide Name Role Phone Tami Olivia Primary Care Provider [phone] Reason for Visit * Reason Onset Date Comments Medications Refill 05/10/2020 Encounter Details Date Type Department Care Team (Late st Contact Info) Description 05/10/2020 Refill [facility] Rhe[facility] [address] [place], [place] [phone] Rowena Ornelas MD [address] [facility] [address] [place] [phone] Medications Refill Social History Tobacco Use Types [...] on filedocumented in this encounter Care Teams Preschool Teacher Aide Relationship Specialty Start Date End Date Tami Olivia [address] [place] [address] PCP - General 12/04/19 documented as of this encounter
--- OUTSIDE RECORDS SUMMARY | 2023-12-26 16:03 | XMS_ITS | Encounter Summary ---
Author Organization [facility] Address [address] [place] [address] Care Team Providers Care Bone Crusher Name Role Phone Tami Olivia Primary Care Provider [phone] Encounter Details Date Type Department Care Team (Late st Contact Info) Description 08/10/2021 Lab Requisition [facility] Pathology & Laboratory Medicine - [facility] [address] [place] [address] Outr Resulting Lab, Provider Social History Tobacco [...] PSA 4.7 <=6.5 ng/mL 08/10/2021 22:[address] [facility] Blood VENOUS BLOOD / Unknown 08/10/2021 12:55 EDT 08/10/2021 21:[address] [facility] - 08/10/2021 22:25 EDT NOTE: Serum PSA concentration should not be interpreted as absolute evidence for the presence or absence of malignant disease. Assayed on Siemens ADVIA MedVentiveaur XPT using chemiluminescent technology.??Values obtained by using different assay methods cannot be used interchangeably. Provider Outr Resulting Lab CHEMISTRY & BLOOD GAS ORDERABLES [facility] [address] [place] [address] documented in this encounter Visit Diagnoses Not on filedocumented in this encounter Care Teams Bone Crusher Relationship Specialty Start Date End Date Tami Olivia [address] [place] [address] PCP - General 12/04/19 documented as of this encounter
--- OUTSIDE RECORDS SUMMARY | 2023-12-26 16:03 | XMS_ITS | Encounter Summary ---
Author Organization [facility] Address [address] [place] [address] Care Team Providers Care Supervisor Histology Name Role Phone Unavailable Primary Care Provider Unavailabl e Encounter Details Date Type Department Care Team (Late st Contact Info) Description 11/05/2019 Abstract [facility] [address] [place] [address] Jeannie Hurtado RN Social History Tobacco Use [...]
--- OUTSIDE RECORDS SUMMARY | 2023-12-26 16:03 | XMS_ITS | Encounter Summary ---
Author Organization [facility] Address [address] [place] [address] Care Team Providers Care Block Placer Name Role Phone Tami Olivia Primary Care Provider [phone] Encounter Details Date Type Department Care Team (Late st Contact Info) Description 12/12/2021 Lab Requisition [facility] Pathology & Laboratory Medicine - [address] [phone] Josephine Sotomayor MD [address] [facility] [place] [address] Encounter for other general examination [...] Name Priority Date/Time Associated Diagnosis Comments NON PLASTIC TUBING INSULATION SUPERVISOR/FNA CYTOLOGY Today 12/11/2021 10:54 EDT Encounter for other general examination documented in this encounter Results * NON PLASTIC TUBING INSULATION SUPERVISOR/FNA CYTOLOGY (12/11/2021 10:54 EDT) Note to Patient The following pathology results have been interpreted by your pathologist and may be available to you before your health provider has had the opportunity to review them. Please allow time for your provider to receive these results and explore management options, if applicable. 12/12/2021 10:41 [facility] Final Diagnosis A. PLEURAL FLUID, LATERALITY NOT SPECIFIED, CYTOLOGIC EVALUATION: - Negative for malignant epithelial cells. - Hypocellular specimen composed of predominantly small lymphocytes. See comment. 12/12/2021 10:41 [facility] Diagnosis Comment Please see the concurrent flow cytometry ([id number]) for characterization of the lymphocytes. 12/12/2021 10:41 [facility] Attestation By the signature below, the attending physician certifies that they have personally conducted a gross and/or microscopic examination of the described specimens and rendered or confirmed the above diagnosis. 12/12/2021 10:41 [facility] at 1041 Clinical History Pleural effusion 12/12/2021 10:41 [facility] Gross Description A. 50cc's of clear yellow fluid were received and processed by selective cellular enhancement technique. 12/12/2021 10:41 [facility] Performing Lab [facility] 10:41 [facility] Scanned Images 12/12/2021 10:41 EDT [facility] Fluid PLEURAL FLUID / Unknown 12/11/2021 10:54 EDT 12/12/2021 6:39 EDT Josephine Sotomayor MD PATHOLOGY ORDERABLES [facility] [address] [place] [address] documented in this encounter Visit Diagnoses Diagnosis Encounter for other general examination documented in this encounter Care Teams Block Placer Relationship Specialty Start Date End Date Tami Olivia [address] [place] [address] PCP - General 12/04/19 documented as of this encounter
--- OUTSIDE RECORDS SUMMARY | 2023-12-26 16:03 | XMS_ITS | Encounter Summary ---
Author Organization [facility] Address [address] [place] [address] Care Team Providers Care Conference And Event Organiser Name Role Phone Tami Olivia Primary Care Provider [phone] Reason for Visit * Reason Comments Follow-up RS3PE syndrome Encounter Details Date Type Department Care Team (Late st Contact Info) Description 12/07/2020 13:15 EDT Office Visit [facility] [place] [address] [place] [address] Mena Ng MD [address] [facility] [address] [place] [phone] RS3PE syndrome (Primary Dx) Social History Tobacco [...] 12/07/2020 added in this encounter Care Teams Conference And Event Organiser Relationship Specialty Start Date End Date Tami Olivia [address] [place] [address] PCP - General 12/04/19 documented as of this encounter
--- OUTSIDE RECORDS SUMMARY | 2023-12-26 16:03 | XMS_ITS | Encounter Summary ---
Author Organization [facility] Address [address] [place] [address] Care Team Providers Care Analysis Intern Name Role Phone Tami Olivia Primary Care Provider [phone] Encounter Details Date Type Department Care Team (Late st Contact Info) Description 12/11/2021 Lab Requisition [facility] Pathology & Laboratory Medicine - [facility] [address] [place] [address] Outr Resulting Lab, Provider Social History Tobacco [...] ID No fungi isolated 01/08/2022 10:43 EDT [facility] Fungal Smear No Fungi Seen 01/08/2022 10:43 EDT [facility] Fluid PLEURAL / Unknown 12/11/2021 11:00 EDT 12/11/2021 17:43 EDT Provider Outr Resulting Lab MICROBIOLOGY - GENERAL ORDERABLES Performing Organization Address City/State/[place] Co de Phone Number [facility] [address] [place] [address] documented in this encounter Visit Diagnoses Not on filedocumented in this encounter Care Teams Analysis Intern Relationship Specialty Start Date End Date Tami Olivia [address] [place] [address] PCP - General 12/04/19 documented as of this encounter
--- OUTSIDE RECORDS SUMMARY | 2023-12-26 16:03 | XMS_ITS | Encounter Summary ---
Author Organization [facility] Address [address] [place] [address] Care Team Providers Care Electric Motor Repair Supervisor Name Role Phone Tami Olivia Primary Care Provider [phone] Reason for Visit * Reason Comments Other Encounter Details Date Type Department Care Team (Late st Contact Info) Description 10/14/2021 Refill [facility] Rheumatology [address] [place] [address] Mena Ng MD [address] [facility] [address] [place] [address] Other Social History Tobacco Use [...] documented as of this encounter Care Teams Electric Motor Repair Supervisor Relationship Specialty Start Date End Date Tami Olivia [address] [place] [address] PCP - General 12/04/19 documented as of this encounter
--- OUTSIDE RECORDS SUMMARY | 2023-12-26 16:03 | XMS_ITS | Encounter Summary ---
Author Organization [facility] Address [address] [place] [address] Care Team Providers Care Director Global Intelligence Name Role Phone Tami Olivia Primary Care Provider [phone] Encounter Details Date Type Department Care Team (Late st Contact Info) Description 09/27/2022 Lab Requisition [facility] Pathology & Laboratory Medicine - [facility] [address] [place] [address] Outr Resulting Lab, Provider Social History Tobacco [...] 54.6(L) 55.8 - 66.1 % 09/28/2022 13:53 [facility] Albumin g/dL 3.9 3.6 - 5.2 g/dL 09/28/2022 13:53 [facility] Alpha-1 % 5.1(H) 2.9 - 4.9 % 09/28/2022 13:53 [facility] Alpha-1 g/dL 0.40 0.15 - 0.40 g/dL 09/28/2022 13:53 [facility] Alpha-2 % 12.0(H) 7.1 - 11.8 % 09/28/2022 13:53 [facility] Alpha-2 g/dL 0.90 0.50 - 1.00 g/dL 09/28/2022 13:53 [facility] Beta % 13.3(H) 8.4 - 13.1 % 09/28/2022 13:53 [facility] Beta g/dL 1.00 0.60 - 1.20 g/dL 09/28/2022 13:53 [facility] Gamma % 15.0 11.1 - 18.8 % 09/28/2022 13:53 [facility] Gamma g/dL 1.10 0.60 - 1.60 g/dL 09/28/2022 13:[address] [facility] SPEP Comment No apparent monoclonal protein seen on serum electrophoresis 09/28/2022 13:[address] [facility] Comment:See scanned/suppleme ntary report. Total Protein 7.2 6.3 - 8.2 g/dL 09/28/2022 13:[address] [facility] Blood VENOUS BLOOD / Unknown 09/26/2022 12:30 EDT 09/27/2022 18:12 EDT Provider Outr Resulting Lab CHEMISTRY & BLOOD GAS ORDERABLES Performing Organization Address [facility] de Phone Number [facility] [address] [place] [address] * PROTEIN, TOTAL (09/26/2022 12:30 EDT) Blood VENOUS BLOOD / Unknown 09/26/2022 12:30 EDT 09/27/2022 18:12 EDT Provider Outr Resulting Lab CHEMISTRY & BLOOD GAS ORDERABLES Performing Organization Address [facility] Co de Phone Number [facility] [address] [place] [address] documented in this encounter Visit Diagnoses Not on filedocumented in this encounter Care Teams Director Global Intelligence Relationship Specialty Start Date End Date Tami Olivia [address] [place] [address] PCP - General 12/04/19 documented as of this encounter
--- OUTSIDE RECORDS SUMMARY | 2023-12-26 16:03 | XMS_ITS | Encounter Summary ---
Author Organization [facility] Address [address] [place] [address] Care Team Providers Care Medical Writer Name Role Phone Tami Olivia Primary Care Provider [phone] Reason for Visit * Reason Comments Medications Refill Encounter Details Date Type Department Care Team (Late st Contact Info) Description 04/09/2023 Refill [facility] Rheumatology [address] [place], [place] [id number] Mena Ng MD [address] [facility] [address] [place] [address] Medications Refill Social History Tobacco [...] documented as of this encounter Care Teams Medical Writer Relationship Specialty Start Date End Date Tami Olivia [address] [place] [address] PCP - General 12/04/19 documented as of this encounter
--- OUTSIDE RECORDS SUMMARY | 2023-12-26 16:03 | XMS_ITS | Encounter Summary ---
Author Organization [facility] Address [address] [place] [address] Care Team Providers Care Spreading Machine Operator Name Role Phone Tami Olivia Primary Care Provider [phone] Encounter Details Date Type Department Care Team (Late st Contact Info) Description 12/11/2021 Lab Requisition [facility] Pathology & Laboratory Medicine - [facility] [address] [place] [address] Outr Resulting Lab, Provider Social History Tobacco [...] 38 See Note mg/dL 12/11/2021 18:45 EDT [facility] Comment: Reference range unavailable. Clinical correlation required. This Fluid Glucose assay was developed and its performance characteristics determined by [facility]. ??It has not been cleared or approved by the US Food and Drug Administration. Fluid PLEURAL FLUID / Unknown 12/11/2021 11:00 EDT 12/11/2021 17:43 EDT Provider Outr Resulting Lab GEN LAB UNIT COLLECT ORDERABLES [facility] [address] [place] [address] documented in this encounter Visit Diagnoses Not on filedocumented in this encounter Care Teams Spreading Machine Operator Relationship Specialty Start Date End Date Tami Olivia [address] [place] [address] PCP - General 12/04/19 documented as of this encounter
--- OUTSIDE RECORDS SUMMARY | 2023-12-26 16:03 | XMS_ITS | Encounter Summary ---
Author Organization [facility] Address [address] [place] [address] Care Team Providers Care Color Card Maker Name Role Phone Tami Olivia Primary Care Provider [phone] Reason for Visit * Reason Onset Date Comments Other Medications Refill 11/06/2019 Encounter Details Date Type Department Care Team (Late st Contact Info) Description 11/05/2019 Refill [facility] Rheumatology [address] [place] [address] Mena Ng MD [address] [facility] [address] [place] [phone] Other; Medications Refill Social History Tobacco Use [...] documented as of this encounter Care Teams Color Card Maker Relationship Specialty Start Date End Date Tami Olivia [address] [place] [address] PCP - General 12/04/19 documented as of this encounter
--- OUTSIDE RECORDS SUMMARY | 2023-12-26 16:03 | XMS_ITS | Encounter Summary ---
Author Organization [facility] Address [address] [place] [address] Care Team Providers Care Automotive Maintenance Technician Name Role Phone Tami Olivia Primary Care Provider [phone] Encounter Details Date Type Department Care Team (Late st Contact Info) Description 12/06/2021 Lab Requisition [facility] Pathology & Laboratory Medicine - [facility] [address] [place] [address] Outr Resulting Lab, Provider Social History Tobacco [...] * QUANTIFERON INTERPRETATION (PERFORMABLE) (12/05/2021 13:56 EDT) [facility] Quantiferon Interpretation Negative Negative 12/07/2021 9:59 EDT [facility] Comment:No interferon-gamma response to M. tuberculosis antigens was detected. ??Infection with M. tuberculosis is unlikely. A single negative result does not exclude infection with M. tuberculosis. ??In patients at high risk for M. tuberculosis infection, a second test should be considered. TB1 Ag minus Nil 0.01 IU/ml 12/08/19 22 9:59 EDT [facility] TB2 Ag minus Nil 0.01 IU/mL 12/08/19 9:59 EDT [facility] Blood VENOUS BLOOD / Unknown 12/05/2021 13:56 EDT 12/07/2021 9:55 EDT Narrative [facility] - 12/07/2021 9:59 EDT Results were obtained with the [employer] QuantiFERON-TB Gold Plus CLIA. New platform in use 11/16/2020 Provider Outr Resulting Lab IMMUNOLOGY A ND SEROLOGY ORDERABLES [facility] [address] [place] [address] * QUANTIFERON MITOGEN (PERFORMABLE) (12/05/2021 13:56 EDT) Blood VENOUS BLOOD / Unknown 12/05/2021 13:56 EDT 12/06/2021 16:51 EDT Provider Outr Resulting Lab IMMUNOLOGY A ND SEROLOGY ORDERABLES Performing Organization Address [facility] Co de Phone Number [facility] [address] [place] [address] * QUANTIFERON TB2 (PERFORMABLE) (12/05/2021 13:56 EDT) Blood VENOUS BLOOD / Unknown 12/05/2021 13:56 EDT 12/06/2021 16:51 EDT Provider Outr Resulting Lab IMMUNOLOGY A ND SEROLOGY ORDERABLES Performing Organization Address [facility] Co de Phone Number [facility] [address] [place] [address] * QUANTIFERON TB1 (PERFORMABLE) (12/05/2021 13:56 EDT) Blood VENOUS BLOOD / Unknown 12/05/2021 13:56 EDT 12/06/2021 16:51 EDT Provider Outr Resulting Lab IMMUNOLOGY A ND SEROLOGY ORDERABLES Performing Organization Address [facility] Co de Phone Number [facility] [address] [place] [address] * QUANTIFERON NIL (PERFORMABLE) (12/05/2021 13:56 EDT) Blood VENOUS BLOOD / Unknown 12/05/2021 13:56 EDT 12/06/2021 16:51 EDT Provider Outr Resulting Lab IMMUNOLOGY A ND SEROLOGY ORDERABLES Performing Organization Address [facility] Co de Phone Number [facility] [address] [place] [address] documented in this encounter Visit Diagnoses Not on filedocumented in this encounter Care Teams Automotive Maintenance Technician Relationship Specialty Start Date End Date Tami Olivia [address] [place] [address] PCP - General 12/04/19 documented as of this encounter
--- OUTSIDE RECORDS SUMMARY | 2023-12-26 16:03 | XMS_ITS | Encounter Summary ---
Author Organization [facility] Address [address] [place] [address] Care Team Providers Care Drier Operator Name Role Phone Tami Olivia Primary Care Provider [phone] Encounter Details Date Type Department Care Team (Late st Contact Info) Description 01/22/2022 Lab Requisition [facility] Pathology & Laboratory Medicine - [facility] [address] [place] [address] Gab Mejia MD [address] [place] [address] [address] [place], [place] [address] Encounter for other general examination Social History [...] explore management options, if applicable. 01/23/2022 16:55 [facility] Final Diagnosis A. COLON, DESCENDING, POLYP, BIOPSY: - Tubular adenoma. B. COLON, ASCENDING, POLYPS X2, BIOPSY: - Tubular adenomas. 01/23/2022 16:55 [facility] Attestation By the signature below, the attending physician certifies that they have 1) personally conducted a gross and/or microscopic examination of the described specimen(s), and/or personally interpreted the results of laboratory testing of the described specimen(s), and 2) personally rendered or confirmed the above diagnosis. 01/23/2022 16:55 [facility] at 1655 Clinical History Hx of colon polyps 01/23/2022 16:55 [facility] Gross Description A. Received [...] ISIDRA CHALOR 01/23/2022 5:43 01/23/2022 16:55 EST [facility] Performing Lab [facility] 01/23/2022 16:55 EST [facility] Scanned Images 01/23/2022 16:55 EST [facility] Tissue POLYP OF COLON / Unknown 01/22/2022 12:00 EST 01/22/2022 16:51 EST Tissue specimen (specimen) POLYP OF COLON / Unknown 01/22/2022 12:00 EST 01/22/2022 16:51 EST Gab Mejia MD PATHOLOGY ORDERA JOSIE [facility] [address] [place] [address] documented in this encounter Visit Diagnoses Diagnosis Encounter for other general examination documented in this encounter Care Teams Drier Operator Relationship Specialty Start Date End Date Tami Olivia [address] [place], [place] [address] PCP - General 12/04/19 documented as of this encounter
--- OUTSIDE RECORDS SUMMARY | 2023-12-26 16:03 | XMS_ITS | Encounter Summary ---
Author Organization [facility] Address [address] [place] [address] Care Team Providers Care Window Glazier Name Role Phone Tami Olivia Primary Care Provider [phone] Encounter Details Date Type Department Care Team (Late st Contact Info) Description 06/25/2022 Lab Requisition [facility] Pathology & Laboratory Medicine - [facility] [place] [address] [place] [address] Mandeep Licona, [address] [place] [address] Neoplasm of unspecified behavior of bone, soft [...] explore management options, if applicable. 06/26/2022 15:23 [facility] Final Diagnosis A. SKIN OF SCALP, LEFT ANTERIOR, SHAVE BIOPSIES: - Seborrheic keratosis, pigmented. 06/26/2022 15:23 [facility] Attestation By the signature below, the attending physician certifies that they have 1) personally conducted a gross and/or microscopic examination of the described specimen(s), and/or personally interpreted the results of laboratory testing of the described specimen(s), and 2) personally rendered or confirmed the above diagnosis. 06/26/2022 15:23 [facility] at 1523 Clinical History Clinical diagnosis code: D49.2 06/26/2022 15:23 [facility] Gross Description A. [...] Kelin Aleisha 06/26/2022 7:48 06/26/2022 15:23 EDT [facility] Performing Lab [facility] 06/26/2022 15:23 EDT [facility] Scanned Images 06/26/2022 15:23 EDT [facility] Tissue TISSUE SPECIMEN FROM SKIN / Unknown 06/22/2022 13:20 EDT 06/25/2022 21:37 EDT Mandeep Licona DO PATHOLOGY ORDER PHILOMENA [facility] [address] [place] [address] documented in this encounter Visit Diagnoses Diagnosis Neoplasm of unspecified behavior of bone, soft tissue, and skin documented in this encounter Care Teams Window Glazier Relationship Specialty Start Date End Date Tami Olivia [address] [place] [address] PCP - General 12/04/19 documented as of this encounter
--- OUTSIDE RECORDS SUMMARY | 2023-12-26 16:03 | XMS_ITS | Encounter Summary ---
Author Organization [facility] Address [address] [place] [address] Care Team Providers Care Lawn Service Manager Name Role Phone Tami Olivia Primary Care Provider [phone] Reason for Visit * Reason Comments Medication Management Doing well, no com plaints. Encounter Details Date Type Department Care Team (Late st Contact Info) Description 05/08/2023 13:15 EST Office Visit [facility] Rheumatology [address] [place], [place] [phone] Mena Ng MD 130 [facility] [address] [place] [phone] RS3PE syndrome (Primary Dx); High risk medication [...] documented in this encounter Progress Notes * Mnea Ng MD - 05/08/2023 1315 EST [facility] -Rheumatology follow up Chief Complaint Patient presents with Medication Management Doing well, no complaints. 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 HPI Doing [...] documented as of this encounter Care Teams Lawn Service Manager Relationship Specialty Start Date End Date Tami Olivia [address] [place] [address] PCP - General 12/04/19 documented as of this encounter
--- OUTSIDE RECORDS SUMMARY | 2023-12-26 16:03 | XMS_ITS | Encounter Summary ---
Author Organization [facility] Address [address] [place] [address] Care Team Providers Care Pad Machine Feeder Name Role Phone Tami Olivia Primary Care Provider [phone] Encounter Details Date Type Department Care Team (Late st Contact Info) Description 12/11/2021 Lab Requisition [facility] Pathology & Laboratory Medicine - [address] [address] Josephine Sotomayor MD [address] [facility] [place] [phone] Pleural effusion, not elsewhere classified; Malignant neoplasm [...] clonal cell population. See comment. 2 10:12 [facility] Comment The cytospin from the tube is acellular and non-diagnotic. However, the flow study reveals adequately sales representatives numbers of lymphocytes. The results of flow cytometry show no immunophenotypic evidence of involvement by a clonal lymphoproliferativ e. 2 10:12 [facility] Attestation By the signature below, the attending physician certifies that they have 1) personally conducted a gross and/or microscopic examination of the described specimen(s), and/or personally interpreted the results of laboratory testing of the described specimen(s), and 2) personally rendered or confirmed the above diagnosis. 2 10:12 [facility] at 1012 Clinical History 70 yo male with pleural effusion. 2 10:12 [facility] Description Morphology of a [...] lineage. There are no blasts. 2 10:12 [facility] Flow Markers CD10, CD19, CD20, CD3, CD4, CD45, CD5, CD8, [place], and Lambda 2 10:12 [facility] FDA Disclaimer This test was developed and its performance characteristics determined by the Department of Pathology and Laboratory Medicine, [place] It has not been cleared or [...] high complexity clinical laboratory testing. 2 10:12 [facility] Sample Analyzed Date and Time 12/12/2021 1115 2 10:12 [facility] Scanned Images 2 10:12 [facility] ZZUNK PLEURAL FLUID / Unknown 12/11/2021 11:00 EDT 12/12/2021 8:18 EDT Josephine Sotomayor MD PATHOLOGY ORDERABLES [facility] [address] [place] [address] documented in this encounter Visit Diagnoses Diagnosis Pleural effusion, not elsewhere classified Malignant neoplasm of unspecified part of left bronchus or lung (HCC-CMS) documented in this encounter Care Teams Pad Machine Feeder Relationship Specialty Start Date End Date Tami Olivia [address] [place] [address] PCP - General 12/04/19 documented as of this encounter
--- OUTSIDE RECORDS SUMMARY | 2023-12-26 16:03 | XMS_ITS | Encounter Summary ---
Author Organization [facility] Address [address] [place] [address] Care Team Providers Care Scaffold Erector Name Role Phone Tami Olivia Primary Care Provider [phone] Reason for Visit * Reason Comments Follow-up Lupus anti coag posi tive; feels a lot better; pain is weather dependent. Encounter Details Date Type Department Care Team (Late st Contact Info) Description 12/04/2019 9:45 EDT Office Visit [facility] Rheumatology [address] [place] [address] Mena Ng MD [address] [facility] [address] [place] [address] RS3PE syndrome (Primary Dx); Encounter [...] you in a year. Call if problems [facility] Patient Instructions hydroxychloroquine Pronunciation: shaina drox ee [...] system);or ?? a genetic enzyme deficiency called tdphoay-8-cohikuxvx dehydrogenase (G6PD) deficiency. Tell your doctor if [...] may report side effects to FDA at 2-864-RGH-0063. What other drugs will affect hydroxychloroquine? Hydroxychloroquine [...] drugs may affect hydroxychloroquine, including prescription and ramv-zeh-iauwrsn medicines, vitamins, and herbal products. Not all [...] to ensure that the information provided by [employer]. ('[employer]') is accurate, up-to-date, and complete, but no guarantee is made to that effect. Drug information contained herein may be time sensitive. [employer] information has been compiled for use by healthcare practitioners and consumers in the [place] and therefore [employer] does not warrant that uses outside of the [place] are appropriate, unless specifically indicated otherwise. [employer] drug information does not endorse drugs, diagnose patients or recommend therapy. [employer] drug information isan informational resource designed to [...] effective or appropriate for any given patient. [employer] does not assume any responsibility for any aspect of healthcare administered with the aid of information [employer] provides. The information contained herein is not intended to cover all possible uses, directions, precautions, warnings, drug interactions, allergic reactions, or adverse effects. If you have questions about the drugs you are taking, check with your doctor, nurse or pharmacist. Copyright 1555-0442 [employer]. Version: 10.02. Revision date: 08/24/2019. Care instructions adapted under license by [facility]. If you have questions about a medical condition or this instruction, always ask your healthcare professional. [employer] disclaims any warranty or liability for your [...] that he has not been to the animal rehabilitator recently. Patient states that a little over [...] Patient states that he has retired from [employer] in [place], [place], felt that he was going crazy staying at home all the time, and has since started working at [employer] in [place], [place] for 4 hours a day. Current [...] file Gets together: Not on file Attends orthodoxy service: Not on file Active member of [...] documented as of this encounter Care Teams Scaffold Erector Relationship Specialty Start Date End Date Tami Olivia [address] [place] [address] PCP - General 12/04/19 documented as of this encounter
--- OUTSIDE RECORDS SUMMARY | 2023-12-26 16:03 | XMS_ITS | Encounter Summary ---
Author Organization [facility] Address [address] [place] [address] Care Team Providers Care Ash Collector Name Role Phone Unknown, Provider Primary Care Provider Encounter Details Date Type Department Care Team (Late st Contact Info) Description 02/05/2012 Results Only [facility] Laboratory Services - [facility] ([facility]) [address], [place] [address] Марина Mann MD [address] [place] [id number] Social History Tobacco Use Types Packs/Day Years [...] ? RAJAN MARQUEZ ? Accession #: ? [id number] ? : ? 1950 (Age: 61) ??M ? Collect Date: ? 02/05/2012 ? Location: ? [facility] ? Receive Date: ? 02/06/2012 ? Provider: МАРИНА MANN MD Copy to: IRIS ROY BASEBALL INSPECTOR AND REPAIRER ? Final Pathologic Diagnosis: ? Skin of ear, left external, shave biopsy: - Fibroepithelial polyp (soft fibroma). Microscopic Description: ? Sections are of a pedunculated portion of skin. ??The epidermis is relatively unremarkable. ??Within the dermis, there is loose fibrous tissue with stellate fibroblasts. ??There are lobules of mature adipose tissue. ??(Dr. Iglesias)/[facility] Document reviewed and electronically signed by: RICARDO [...] entirely submitted as (A1) and (A2). (Ronit Juarez)/[facility] End of Report RAYNA KUMAR 02/05/2012 02/06/2012 19: 45 EST Марина Mann MD PATHOLOGY ORDERABLES RAYNA KUMAR [address] [place] [address] documented in this encounter Visit Diagnoses Not on filedocumented in this encounter Care Teams Ash Collector Relationship Specialty Start Date End Date Unknown, Provider, PCP - General 02/06/12 02/06/12 documented as of this encounter
--- OUTSIDE RECORDS SUMMARY | 2023-12-26 16:03 | XMS_ITS | Encounter Summary ---
Author Organization [facility] Address [address] [place] [address] Care Team Providers Care Specimen Preparation Assistant Name Role Phone Tami Olivia Primary Care Provider [phone] Reason for Visit * Reason Onset Date Comments Appointment Related 02/20/2022 Encounter Details Date Type Department Care Team (Late st Contact Info) Description 02/20/2022 Telephone [facility] Rheumatology [address] [place] [address] Mena Ng MD [address] [facility] [address] [place] [phone] Appointment Related Social History Tobacco Use Types [...] Dr. Ng, he has been admitted at [facility]. Appt has been rescheduled to April. documented in this encounter Plan of Treatment Not on file documented as of this encounter Visit Diagnoses Not on filedocumented in this encounter Care Teams Specimen Preparation Assistant Relationship Specialty Start Date End Date Tami Olivia [address] [place] [id number] PCP - General 12/04/19 documented as of this encounter
--- OUTSIDE RECORDS SUMMARY | 2023-12-26 16:03 | XMS_ITS | Encounter Summary ---
Author Organization [facility] Address [address] [place] [address] Care Team Providers Care Power Hammer Operator Name Role Phone Tiffany Gutierres [employer] SALES REPRESENTATIVE Primary Care Provider [phone] Encounter Details Date Type Department Care Team (Late st Contact Info) Description 04/28/2018 Results Only [facility] [phone] Aby Winston MD [address] [place] [address] [place] [address] Social History Tobacco Use Types [...] ? RAJAN MARQUEZ ? Accession #: ? [id number] ? : ? 1950 (Age: 67) ??M [...] (ASCP) 04/28/2018 4:41 PM End of Report [facility] 04/28/2018 16:0 5 EST 04/28/2018 16:05 EST Aby Winston MD PATHOLOGY ORDERClemencia GALINDO [facility] [address] [place] [address] documented in this encounter Visit Diagnoses Not on filedocumented in this encounter Care Teams Power Hammer Operator Relationship Specialty Start Date End Date Tiffany Gutierres, SEC[employer] SALES REPRESENTATIVE [address] [place] [phone] PCP - General 02/07/12 11/04/19 documented as of this encounter
--- OUTSIDE RECORDS SUMMARY | 2023-12-26 16:03 | XMS_ITS | Encounter Summary ---
Author Organization [facility] Address [address] [place] [address] Care Team Providers Care Lens Silverer Name Role Phone Tami Olivia Primary Care Provider [phone] Encounter Details Date Type Department Care Team (Late st Contact Info) Description 09/28/2021 Lab Requisition [facility] Pathology & Laboratory Medicine - [facility] [address] [place] [address] Outr Resulting Lab, Provider Social History Tobacco [...] PSA 2.4 <=6.5 ng/mL 09/28/2021 22:36 EDT [facility] Blood VENOUS BLOOD / Unknown 09/28/2021 10:40 EDT 09/28/2021 21:24 EDT Narrative [facility] - 09/28/2021 22:36 EDT NOTE: Serum PSA concentration should not be interpreted as absolute evidence for the presence or absence of malignant disease. Assayed on Siemens ADVIA Angiodroidaur XPT using chemiluminescent technology.??Values obtained by using different assay methods cannot be used interchangeably. Provider Outr Resulting Lab CHEMISTRY & BLOOD GAS ORDERABLES [facility] [address] [place] [address] documented in this encounter Visit Diagnoses Not on filedocumented in this encounter Care Teams Lens Silverer Relationship Specialty Start Date End Date Tami Olivia [address] [place] [id number] PCP - General 12/04/19 documented as of this encounter
--- OUTSIDE RECORDS SUMMARY | 2023-12-26 16:03 | XMS_ITS | Encounter Summary ---
Author Organization [facility] Address [address] [place] [address] Care Team Providers Care Keno Clerk Name Role Phone Tami Olivia Primary Care Provider [phone] Reason for Visit * Reason Onset Date Comments Other 08/12/2020 Encounter Details Date Type Department Care Team (Late st Contact Info) Description 08/12/2020 Telephone [facility] Rheumatology [address] [place] [address] Mena Ng MD [address] [facility] [address] [place] [phone] Other Social History Tobacco Use [...] documented as of this encounter Care Teams Keno Clerk Relationship Specialty Start Date End Date Tami Olivia [address] [place] [address] PCP - General 12/04/19 documented as of this encounter
[2023-12-26 16:11] LABS: Digoxin 1.92 ng/mL (0.90-2.00)
== END 2023-12-26 15:56 | disposition home or self-care (01) ==
LOC: LBO 15:55
PROVIDERS: PCP Nurse Practitioner Family; Visit Provider Nurse Practitioner Family
DX: I48.91 Unspecified atrial fibrillation (principal)
CPT/HCPCS: 36415; 80162

== ENCOUNTER 2023-12-31 22:40 | Outpatient (CLI) | payer MEDICARE, SELFPAY ==
[2023-12-31 17:14] LABS: Digoxin 1.38 ng/mL (0.90-2.00)
--- OUTSIDE RECORDS SUMMARY | 2023-12-31 22:44 | XMS_ITS | Encounter Summary ---
Author Organization [facility] Address [facility] [place] [address] Care Team Providers Care Customs Collector Name Role Phone Tami Olivia Primary Care Provider [phone] Encounter Details Date Type Department Care Team (Late st Contact Info) Description 12/31/2023 Notes Only Cardiac Rehab [facility] [place] [phone] Michaela Haile RN Social History Tobacco Use Types Packs/Day [...] any time in the past 12 [facility], were you homeless or living in a intermediate (including now)? No 12/13/2023 IPV Inpatient Questions [...] as of this encounter Progress Notes * Michaela Haile RN - 12/31/2023 9:44 AM EDT Cardiac rehab referral received on this patient from Dr. Watson. DX: HFrEF Patient lives near [facility], referral sent there. documented in this encounter Plan of Treatment Upcoming Encounters Date Type Department Care Team (Late st Contact Info) Description 01/20/2024 10:40 AM EST Office Visit Cardiology at [address] [phone] Chrissy Zepeda APRN [facility] [place] [address] Scheduled Procedures Name Priority Associated Diagnoses Date/Ti me CARDIOVERSION-ELECTIVE (WRVU 2) atrial flutter ELECTROPHYSIOLOGY PROCEDURE Persistent atrial fibrillation CARDIOVERSION-ELECTIVE (WRVU 2) persistent atrial fibrillation TRANSESOPHAGEAL ECHOCARDIOGR AM (WRVU 2.3) persistent atrial fibrillation documented as of this encounter Visit Diagnoses Not on filedocumented in this encounter Care Teams Customs Collector Relationship Specialty Start Date End Date Tami Olivia [address] [place] [address] PCP - General Family Medicine 12/30/20 documented as of this encounter
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
--- OUTSIDE RECORDS SUMMARY | 2023-12-31 22:45 | XMS_ITS | Encounter Summary ---
Author Organization [facility] [place] [address] Care Team Providers Care Gauger Chief Name Role Phone Tami Olivia Primary Care Provider [phone] Reason for Visit * Reason Onset Date Comments Pre Procedure Call 11/06/2022 Encounter Details Date Type Department Care Team (Late st Contact Info) Description 11/06/2022 Telephone Cardiology at [address] [phone] Jacqueline Henry RN Pre Procedure Call Social [...] to procedure. NPO after midnight. Understands that electric pile driver operator is needed to transport them upon discharge. documented in this encounter Plan of Treatment Upcoming Encounters Date Type Department Care Team (Late st Contact Info) Description 01/20/2024 10:40 AM EST Office Visit Cardiology at [address] [phone] Chrissy Zepeda APRN [facility] [place] [address] Scheduled Procedures Name Priority Associated Diagnoses Date/Ti me CARDIOVERSION-ELECTIVE (WRVU 2) atrial flutter ELECTROPHYSIOLOGY PROCEDURE Persistent atrial fibrillation CARDIOVERSION-ELECTIVE (WRVU 2) persistent atrial fibrillation TRANSESOPHAGEAL ECHOCARDIOGR AM (WRVU 2.3) persistent atrial fibrillation documented as of this encounter Visit Diagnoses Not on filedocumented in this encounter Care Teams Gauger Chief Relationship Specialty Start Date End Date Tami Olivia [address] [place] [address] PCP - General Family Medicine 12/30/20 documented as of this encounter
--- OUTSIDE RECORDS SUMMARY | 2023-12-31 22:45 | XMS_ITS | Encounter Summary ---
Author Organization [facility] [place] [address] Care Team Providers Care Rn Neurology Name Role Phone Tami Olivia Primary Care Provider [phone] Encounter Details Date Type Department Care Team (Late st Contact Info) Description 11/09/2022 Telephone Cardiology at [address] [phone] Jaquelin Murdock Social History Tobacco Use Types Packs/Day Years Used Date Smoking Tobacco: Former Cigarettes Smokeless Tobacco: Never Comments:1 ppd for the past year Alcohol Use Standard Drinks/Week Comments Not Currently 0 (1 standard drink = 0.6 oz pur e alcohol) [facility] Inpatient Questions Answer Date Recorded Does Anyone [...] Email sent to Hailey Cavanaugh at [facility] asking for pt to be scheduled there for f/up with Dr. Canales. Jaquelin Murdock Sr. Clinical Procedure [place]ad/EP documented in this encounter Plan of Treatment Upcoming Encounters Date Type Department Care Team (Late st Contact Info) Description 01/20/2024 10:40 AM EST Office Visit Cardiology at [address] [phone] Chrissy Zepeda, [facility] [place] [address] Scheduled Procedures Name Priority Associated Diagnoses Date/Ti me CARDIOVERSION-ELECTIVE (WRVU 2) atrial flutter ELECTROPHYSIOLOGY PROCEDURE Persistent atrial fibrillation CARDIOVERSION-ELECTIVE (WRVU 2) persistent atrial fibrillation TRANSESOPHAGEAL ECHOCARDIOGR AM (WRVU 2.3) persistent atrial fibrillation documented as of this encounter Visit Diagnoses Not on filedocumented in this encounter Care Teams Rn Neurology Relationship Specialty Start Date End Date Tami Olivia [address] [place] [address] PCP - General Family Medicine 12/30/20 documented as of this encounter
--- OUTSIDE RECORDS SUMMARY | 2023-12-31 22:45 | XMS_ITS | Encounter Summary ---
Author Organization [facility] Address [facility] [place] [address] Care Team Providers Care Senior Talent Management Consultant Name Role Phone Tami Olivia Primary Care Provider [phone] Reason for Visit * Reason Onset Date Comments Appointment 08/22/2022 CT Encounter Details Date Type Department Care Team (Late st Contact Info) Description 08/22/2022 Telephone [place] [phone] Ramon Schneider, RN Appointment (CT) Social History [...] AM EST Office Visit Cardiology at [address] [phone] Chrissy Zepeda, NEON SIGN SERVICER [facility] CARDI[facility] [place], [place] [id number] Scheduled Procedures Name Priority Associated Diagnoses Date/Ti me CARDIOVERSION-ELECTIVE (WRVU 2) atrial flutter ELECTROPHYSIOLOGY PROCEDURE Persistent atrial fibrillation CARDIOVERSION-ELECTIVE (WRVU 2) persistent atrial fibrillation TRANSESOPHAGEAL ECHOCARDIOGR AM (WRVU 2.3) persistent atrial fibrillation documented as of this encounter Visit Diagnoses Not on filedocumented in this encounter Care Teams Senior Talent Management Consultant Relationship Specialty Start Date End Date Tami Olivia [address] [place] [address] PCP - General Family Medicine 12/30/20 documented as of this encounter
--- OUTSIDE RECORDS SUMMARY | 2023-12-31 22:45 | XMS_ITS | Encounter Summary ---
Author Organization [facility] Address [facility] [place] [address] Care Team Providers Care Data Officer Name Role Phone Tami Olivia Primary Care Provider [phone] Encounter Details Date Type Department Care Team (Late st Contact Info) Description 06/12/2023 Orders Only Cardiology at [address] [phone] Sekou Canales MD [facility] [address] [place], [place] [id number] Persistent atrial fibrillation Social History Tobacco Use [...] AM EST Office Visit Cardiology at [address] [phone] Chrissy Zepeda APRN [facility] [place] [address] Scheduled Procedures Name Priority Associated Diagnoses Date/Ti me CARDIOVERSION-ELECTIVE (WRVU 2) atrial flutter ELECTROPHYSIOLOGY PROCEDURE Persistent atrial fibrillation CARDIOVERSION-ELECTIVE (WRVU 2) persistent atrial fibrillation TRANSESOPHAGEAL ECHOCARDIOGR AM (WRVU 2.3) persistent atrial fibrillation documented as of this encounter Visit Diagnoses Diagnosis Persistent atrial fibrillation Atrial fibrillation documented in this encounter Care Teams Data Officer Relationship Specialty Start Date End Date Tami Olivia [address] [place] [address] PCP - General Family Medicine 12/30/20 documented as of this encounter
--- OUTSIDE RECORDS SUMMARY | 2023-12-31 22:45 | XMS_ITS | Encounter Summary ---
Author Organization [facility] Address [facility] [place] [address] Care Team Providers Care Car Installations Supervisor Name Role Phone Tami Olivia Primary Care Provider [phone] Reason for Visit * Auth/Cert (Routine) Specialty Diagnoses / Procedures Referred By Bert t Referred To Contact Diagnoses Atrial flutter atrial flutter Procedures PRO CARDIOVERSION ELECTIVE ARRHYTHMIA EXTERNAL CARDIOVERSION-ELECTIVE (WRVU 2) Sekou Canales MD [facility] [place] [address] [facility] [[email or web address]] Referral ID Status Reason Start Date Expiration Date Visits Re quested Visits Authorized [id number] 1 1 Encounter Details Date Type Department Care Team (Late st Contact Info) Description 11/08/2022 11:00 AM EDT Office Visit Cardiology at [address] [place] [place] [address] Elizabet Otero PA [facility] [place] [address] Encounter for monitoring amiodarone therapy; Longstanding persistent atrial fibrillation Social History Tobacco Use Types Packs/Day Years Used Date Smoking Tobacco: Former Cigarettes Smokeless Tobacco: Never Tobacco Cessation:Counseling Given: Not Answered Comments:1 ppd for the past year Alcohol Use Standard Drinks/Week Comments Not Currently 0 (1 standard drink = 0.6 oz pur e alcohol) [facility] Inpatient Questions Answer Date Recorded Does [...] documented in this encounter Progress Notes * Elizbaet Otero PA - 11/08/2022 10:30 AM EDT [...] Mr. Marquez met with Dr. Canales in [facility] on 10/10/2022 for evaluation and management of atrial fibrillation and atrial flutter, noting that these are associated with CHF sx and reduced LVEF. Therefore, amiodarone was restarted and plans were made to pursue DCCV. Live independently in [place], [place]. Enjoys riding [employer]. Patient Active Problem List Diagnosis Fibrothorax Atrial [...] 4. Follow up with Dr. Canales in [facility] I appreciate the opportunity to be involved with Mr. Marquez's care. Please do not hesitate to contactEP with any further questions (pager [phone]). STEVE Manley Pager: [phone] documented in this encounter Plan of Treatment Upcoming Encounters Date Type Department Care Team ([facility] Contact Info) Description 01/20/2024 10:40 AM EST Office Visit Cardiology at [address] [address] Chrissy Zepeda, VACUUM CLEANER OPERATOR [facility] [place] [address] Scheduled Procedures Name Priority Associated Diagnoses Date/Ti [...] (Bezet) 486 ms MUSE SYSTEM Calculated R Deport 101 degrees MUSE SYSTEM Calculated T Deport 60 degrees MUSE SYSTEM INTERPRETATION Atrial flutter with variable A-V block Rightward axis Minimal voltage criteria for LVH, may be normal variant ( [place] product ) Prolonged QT Abnormal ECG When compared with ECG of 21-MAY-2022 07:36, Atrial flutter has replaced Sinus rhythm Inverted T waves have replaced nonspecific T wave abnormality in Inferior leads Confirmed by MD Bob, Sloan ([id number]) on 11/10/2022 3:58:39 PM MUSE SYSTEM 11/08/2022 11:1 9 AM EDT 11/10/2022 3:58 PM EDT Sekou Canales MD ECG ORDERABLES MUSE SYSTEM * [facility] [place] (11/08/2022 9:17 AM EDT) Thyroid Stimulating Hormone 3.91 0.27 - 4.20 mcIU/mL [facility] Comment: Reference Interval (mcIU/mL): Females: ??First Trimester: 0.23-3.88 ??Second Trimester: 0.22-3.90 ??Third Trimester: 0.44-4.66 Blood 11/08/2022 9:17 AM EDT 11/08/2022 9:24 AM EDT Narrative Resulting Agency Comment Spec In Lab Sekou Canales MD CHEMISTRY ORDERABLES Performing Organization Address City/[facility] Co de Phone Number [facility] [place] [address] * Magnesium (11/08/2022 9:17 AM EDT) Magnesium 0.90 0.69 - 1.07 mmol/L [facility] Blood 11/08/2022 9:17 AM EDT 11/08/2022 9:24 AM EDT Narrative Resulting Agency Comment Spec In Lab Sekou Canales MD CHEMISTRY ORDERABLES Performing Organization Address [facility] de Phone Number [facility] [place] [address] * (ABNORMAL) Comprehensive metabolic panel (non-fasting) (11/08/2022 9:17 AM EDT) Glucose 81 65 - 199 mg/dL [facility] Comment:Diabetes: >=200 mg/d L plus symptoms Blood Urea Nitrogen 25(H) 10 - 20 mg/dL [facility] Creatinine 1.58(H) 0.80 - 1.50 mg/dL [facility] Sodium 138 135 - 145 mmol/L [facility] Potassium 4.5 3.5 - 5.0 mmol/L [facility] Comment: Please note: ??Patients with WBC >100,000 may have falsely elevated Potassium levels. ??For accurate Potassium quantification in these patients send serum separator tube (gold top) for subsequent determinations. ??Contact the Clinical Chemistry Laboratory if there are any questions. Chloride 101 98 - 107 mmol/L [facility] Carbon Dioxide 25 22 - 31 mmol/L [facility] Anion Gap 12 5 - 15 mmol/L [facility] Calcium 9.6 8.5 - 10.5 mg/dL [facility] Protein, Total 7.5 6.1 - 8.0 g/dL [facility] Albumin 4.2 3.2 - 5.2 g/dL [facility] Aspartate Aminotransferase 33 0 - 39 unit/L [facility] Alanine Aminotransferase 32 0 - 55 unit/L [facility] Alkaline Phosphatase 104 40 - 130 unit/L [facility] Bilirubin, Total 0.6 0.2 - 1.3 mg/dL [facility] Est Glomerular Filtration Rate 46(L) >=60 mL/min/1. 73 m?? [facility] [...] In Lab Sekou Canales MD CHEMISTRY ORDERABLES [facility] [place] [phone] documented in this encounter Visit Diagnoses Diagnosis Encounter for monitoring amiodarone therapy Encounter for therapeutic drug monitoring Longstanding persistent atrial fibrillation documented in this encounter Care Teams Car Installations Supervisor Relationship Specialty Start Date End Date Tami Olivia [address] [place] [address] PCP - General Family Medicine 12/30/20 documented as of this encounter
--- OUTSIDE RECORDS SUMMARY | 2023-12-31 22:45 | XMS_ITS | Encounter Summary ---
Author Organization [facility] Address [facility] [place] [address] Care Team Providers Care Prism Measurer Name Role Phone Tami Olivia Primary Care Provider [phone] Reason for Referral * Consultation (Routine) - Closed Specialty Diagnoses / Procedures Referred By Bert gautam Referred To Contact Diagnoses Congestive heart failure, unspecified HF chronicity, unspecified heart failure type Layo Starr MD [facility] [address] Cardiac Rehab, [address] [place] [address] Referral ID Status Reason Start Date Expiration Date V isits Requested Visits Authorized [id number] Closed Consult, Test & Treat 12/16/2023 12/15/2024 36 36 * Diagnostic Test (Routine) - Pending Review Specialty Diagnoses / Procedures Referred By Bert gautam Referred To Contact Cardiology Diagnoses Typical atrial flutter Procedures Trans Echo (HARSH) with Cardioversion Layo Starr MD [facility] [address] [facility] [place] [address] Referral ID Status Reason Start Date Expiration Date Visits Requested Visits Authorized [id number] Pending Review Specialty Service Requested 12/16/2023 12/15/2024 1 1 Reason for Visit * Auth/Cert (Routine) Specialty Diagnoses / Procedures Referred By Contac t Referred To Contact Diagnoses Atrial flutter Atrial fibrillation Procedures EMERGENCY IPI Tiera Goldsmith MD [facility] [address] [facility] Referral ID Status Reason Start Date Expiration Date Visits Re quested Visits Authorized [id number] 1 1 Encounter Details Date Type Department Care Team (Late st Contact Info) Description 12/12/2023 6:10 PM EDT - 12/16/2023 2:32 PM EDT Hospital Encounter Heart and Vascular Unit Level 4 [place] [id number] Tiera Goldsmith MD [facility] [address] Layo Starr MD [facility] [address] Typical atrial flutter; Congestive heart failure, unspecified [...] any time in the past 12 m [facility], were you homeless or living in a residential (including now)? No 12/13/2023 DH IPV Inpatient [...] Rajan Faulkner Patient Age: 72 y.o. Language: Russian Admit date: 12/12/2023 Discharge date and time: [...] Provider Contact Information: Layo Starr MD Pager #[phone] Discharge Diagnoses (Hospital Problems) and Secondary Diagnoses [...] thrombus and hence cardioversion was not performed. [id number],, started on Lovenox 1 mg/kg body weight [...] Instructions Hospital course You were admitted to [facility] for elevated heart rate and shortness of [...] of 8AM-5PM please call the Cardiology Clinic [phone] to speak with a nurse. All other hours please call the Hospital Branch Service Specialist [phone] and ask to speak to the cardiovascular hospitalist on-call. For any emergent questions, please call 911 or visit your nearest emergency department/urgent care center Return to work: One week Driving: No driving for 48 hours after cath Follow up Appointments: Doctor Where Phone # Date Time PCP Tami Triana [address] [place] [address] Dec, , 11.30 PM Assembler [employer] [facility] Cardiology Clinic [phone] Jan 19Saturday 10.40 AM Diet-2 g salt, 2 L/day fluid restriction Activity-as tolerated. General Instructions None Future Appointments and Orders Future Appointments and Orders Future Appointments Provider Department Dept Phone 01/20/2024 10:40 AM Chrissy Zepeda APRN Cardiology at [facility] Arrive at: [facility] [phone] Future Orders Complete By Expires Digoxin level [...] Instructions: Questions: Where will study be performed?: [facility] Clinics Does the patient have difficulty swallowing?: No Does the patient have esophageal problems?: No Is a 3D HARSH needed? (If Yes, provide indication in comment section): Referral to Cardiac Rehab [[id number] Custom] As directed Process Instructions: If no progress note charted, please enter Clinical details in comments. Scheduling Instructions: Questions: My question or request is: cardiomyopathy Discharge References/Attachments None More than 30 minutes were spent on this discharge including documentation, [id number] time with patient, patient education, radiology orderly, and coordination pharmacy, follow-up and other patient care. Layo Starr MD 12/16/2023 1:42 PM documented in this encounter Discharge Instructions * Patient Instructions* Layo Starr MD - 12/15/2023 4:55 PM EDT Hospital course You were admitted to [facility] for elevated heart rate and shortness of [...] of 8AM-5PM please call the Cardiology Clinic [phone] to speak with a nurse. All other hours please call the Hospital Branch Service Specialist [phone] and ask to speak to the cardiovascular hospitalist on-call. For any emergent questions, please call 911 or visit your nearest emergency department/urgent care center Return to work: One week Driving: No driving for 48 hours after cath Follow up Appointments: Doctor Where Phone # Date Time PCP Tami Triana [address] [place] [phone] Dec, , 11.30 PM Assembl[employer] [facility] Cardiology 4A Clinic [phone] Jan 19Saturday 10.40 AM Diet-2 g salt, 2 L/day fluid restriction Activity-as tolerated. documented in this encounter Medications at Time of Discharge Medication Sig Dispensed Refills Start Date End Date albuteroL 90 mcg/actuation inhaler (HFA) Inhale 2 [...] tablet by mouth daily. 90 tablet 12/16/2023 cyanocobalamin, Vitamin B-12, (Vitamin B-12) 1,000 mcg tablet Take 1,000 mcg by mouth daily. tamsulosin (Flomax) 0.4 mg Capsule Take 0.4 mg by mouth daily. hydrOXYchloroQUINE (Plaquenil) 200 mg Tablet Take 200 mg by mouth Daily. 04/04/2018 cholecalciferol, Vitamin D3, (Vitamin D3) 1,000 unit Tablet Take 1 tablet by mouth daily. 11/01/2014 documented as of this encounter Progress Notes * Layo Starr MD - 12/15/2023 2:23 PM EDT CV HOSPITALIST 2 - [facility] DAILY PROGRESS NOTE Page [phone] to reach a provider 01/10 Admit Date: [...] thrombus and hence cardioversion was not performed. [id number]:3,, started on Lovenox 1 mg/kg body weight [...] Score: 23 PT: OT: PCP Tami Olivia [phone] Disposition-discharge tomorrow. Layo Starr MD 12/15/2023 2:23 [...] is requesting. A new copy of the [place] Advance Directive was left for review and in the event that the patient wants to make a lot of changes to the existing form. Patient and significant other educated on the purpose of the Advance Directive and process to change or update it. Tita Ford [facility] Office of Case Management-Barrel Lapper Clinical Barrel Lapper ED CDU SDP Pager [phone] * Layo Starr MD - 12/14/2023 11:10 AM EDT CV HOSPITALIST 2 - [facility] DAILY PROGRESS NOTE Page [phone] to reach a provider 01/10 Admit Date: [...] [facility] Medications: Scheduled Meds: digoxin 125 mcg Oral [...] is mild to moderate mitral regurgitation. Assessment: aRjan Faulkner is a 72 y.o. male with [...] thrombus and hence cardioversion was not performed. [id number]:3,, started on Lovenox 1 mg/kg body weight [...] Cardiopulmonary Resuscitation - Inpatient Disposition: Discharge Location: [facility] Basic Mobility Raw Score: 23 PT: OT: PCP Tami Olivia [phone] Disposition-likely discharge in the next 24 to [...] 11:39 AM EDT CV HOSPITALIST 2 - [facility] DAILY PROGRESS NOTE Page [phone] to reach a provider 01/10 Admit Date: 12/12/2023 Encounter Date December 13, 2023 Anticipated Discharge Date: 12/15/2023 Hospital Day: Active Hospital Problems Diagnosis Atrial flutter Resolved Hospital Problems No resolved problems to display. 24 Hour Events/Subjective: No acute events overnight. Patient tells me that he was diagnosed with atrial fibrillation about 3 years ago, did see his missile technician about 6 months ago. He is status [...] no edema Skin- normal Labs: Recent Labs 12/12/23 2042 WBC 10.33* HGB 15.1 HCT 45.4 PLATELET [...] 12/12/2023 10:47 PM) Result Value WORKSTATION ID [id number] Impression Improved aeration both lungs with decreased volume of loculated chronic left hydropneumothorax. Thank you for letting us participate in the care of this patient. If you are a health care provider and have any questions regarding this report, please contact the number below. For patients who have questions please contact the health home care assistant that requested your imaging first. Electronically signed by: Maryann Magallanes MD, [facility] ([phone]), at 12/13/2023 2:25 AM 2D echocardiogram, 12/13/2023, [...] Will also consult general cardiology further recommendations. [id number], will hold off on Xarelto, started on [...] Cardiopulmonary Resuscitation - Inpatient Disposition: Discharge Location: [facility] Basic Mobility Raw Score: 20 PT: OT: PCP Tami Olivia [phone] Layo Starr MD 12/13/2023 11:58 AM Addendum: [...] from the original note were not included. [facility] Pre-Procedure H&P and Pre-Sedation Assessment Rajan Faulkner [...] When patient presented to the ED at [facility] in [place], [place] he was found to be in acute respiratory failure d/t acutely decompenasated CHF. He was tachycardic in the 150's and tachypneic and hypoxicw/ SPO2 77%. He was treated w/ BIPAP, iv lasix and bolused w/ iv diltiazem and put on diltiazem drip. [facility] cardiology was consulted for transfer and patient was accepted for transfer to Dr. Gray for HARSH and cardioversion but d/t lack of bed availability, patient was hospitalized overnight at [facility]. He was begun on heparin drip and his cardizem dripped was weaned off and patient was put on lopressor 50 mg po q6h. He has now been transferred to [facility] cardiology for HARSH and DCC. Past Medical [...] IR Thoracentesis Left 11/08/2021 Ramírez Ramirez MD [facility] INTERVENTIONL RAD PRO BRONCHOSCOPY, DIAGNOSTIC N/A 03/29/2021 BRONCHOSCOPY, DIAGNOSTIC (WRVU 2.78) performed by Gilmer Gutiérrez MD at [facility] MAIN OR PRO BRONCHOSCOPY, DIAGNOSTIC N/A 02/08/2022 BRONCHOSCOPY, DIAGNOSTIC (WRVU 2.78) performed by Gilmer Gutiérrez MD at [facility] MAIN OR PRO BRONCHOSCOPY, DIAGNOSTIC N/A 05/18/2022 BRONCHOSCOPY, DIAGNOSTIC (WRVU 2.53) performed by Gilmer Gutiérrez MD at [facility] MAIN OR PRO CARDIOVERSION ELECTIVE ARRHYTHMIA EXTERNAL N/A 11/08/2022 CARDIOVERSION-ELECTIVE (WRVU 2) performed by Sekou Canales MD at [facility] MAIN OR PRO DECORTICATION, PULMONARY, TOTAL Left 05/18/2022 @THORACOTOMY,DECORTICATION, PULMONARY, TOTAL (WRVU 26.65) performed by Gilmer Gutiérrez MD [facility] MAIN OR PRO INJECTION ANES AGENT &/ STEROID INTERCOSTAL NERVE SINGLE LEVEL Left 03/29/2021 NERVE BLOCK, INTERCOSTAL NERVE (WRVU 1.18) performed by Gilmer Gutiérrez MD at [facility] MAIN OR PRO RECONSTRUCT INJURED CHEST Left 05/18/2022 @MAJOR RECONSTRUCTION, CHEST WALL (WRVU 22.51) performed by Gilmer Gutiérrez MD at [facility] MAIN OR PRO THORACOSCOPY SURG LOBECTOMY Left 03/29/2021 @THORACOSCOPY,SURGICAL,W\LOBECTOMY,TOTAL OR SEGMENTAL (WRVU 24.64) performed by Johana Gutiérrez MD at [facility] MAIN OR PRO THORACOSCOPY WITH BIOPSY OF PLEURA Left 02/08/2022 THORACOSCOPY; WITH BIOPSY(IES) OF PLEURA (WRVU 4.58) performed by [facility] PRO THORACOSCOPY WITH MEDIASTINAL AND REGIONAL LYMPHADENECTOMY 03/29/2021 @THORACOSCOPY, SURG; W/MEDIASTINAL& REGIONAL LYMPHADENECTOMY (WRVU 4.12) performed by Gilmer Gutiérrez MD at [facility] MAIN OR PRO THORACOSCOPY WITH WEDGE RESECTION AND ANATOMIC LUNG RESECTN Left 03/29/2021 @THORACOSCOPY, SURG; W/DX WEDGE RESC W/ANATOMIC LUNG RESC (WRVU 3) performed by Johana Gutiérrez MD at [facility] MAIN OR Significant Family History: Family [...] in this encounter Nursing Notes * Clark Cuello, RN - 12/13/2023 11:20 AM EDT 1120 [...] cutting his medication costs. RNCM spoke with [facility], original quote was over $600, but they were able to bring costs down to $330. Pt was notified and he states he isable to afford this cost. Pt will picker and sorter load and unload medications at [facility] on [address]. Patient is insured through: Primary Insurance: AAR MANAGED MEDICARE Payor: AAR MANAGED MEDICARE / [facility] COMPLETE / Product Type: [...] for Consult: Financial resources Social Work Response: CAR LOADER met with patient to provide support and follow up on social work consult.Patient shares that two of his medications - his blood thinner and one of his inhalers - are very expensive. Patient is interested in learning about assistance programs as the one inhaler alone costshim $800/month. Patient shares he goes to [facility] in [place] for the blood thinner and the inhaler because they are a bit cheaper. Per patient, he gets his other medications at [facility] in [place]. CAR LOADER spoke with the Medication Assistance team and learned about two assistance programs for pt's inhalers, one for Breo and one for Spiriva. CAR LOADER provided patient with applications for both programs and explained that his PCP would have to help him complete them. CAR LOADER also informed patient that his doctor would talk with him about options for his blood thinner. Patient appreciative of information and assistance and denies other social work needs at this time. Follow Up Needed: None at this time. Social work will remain available for support as needed. MIA Harley, [facility] Care Management, [phone] * Initial [...] surrogate would be surrogate decision maker per [place] surrogate decision making law. (Only good for 180 days) Patient states he has an AD at [facility] listing his SO Melania Leonard ([phone]) as decision maker. Patient also has a daughter, Karla Brown ([phone]), but says she is not listed on new AD's. Any patient receiving care in [place] must abide by [place] law. The hierarchy for surrogate decision making [...] The agent with financial power of attorney at law or a conservator appointed in accordance with [...] homeless or living in a residential (including now)?: No Resource / Environmental Concerns: [...] of his home) Home Address confirmed as: [address] [place] [phone] Social & Family Supports: Extended Emergency Contact [...] most expensive medications at [facility] in [place] and pays mon because it is cheaper. Health/Prescription Coverage: Primary Insurance: AAR MANAGED MEDICARE Payor: AARP MANAGED MEDICARE / Plan: [facility] COMPLETE / Product Type: *No Producttype* / Secondary Insurance: N/A ; Prescription Coverage: Yes Preferred Pharmacy: [facility] [place], [place] - [address] [place] [id number] Status: Patient is a : No Primary Care Provider confirmed: Tami Olivia [phone] Patient/Caregiver Goals of Treatment: Return home with SO Potential Needs for Transition of Care: unable to assess Agency Referrals: Pending hospital course Transportation: no concerns Transportation Anticipated: family or friend will provide Concerns to be Addressed: discharge planning Assessment: Patient is admitted to Cardiology service for atrial flutter. Pt is a 72 yo male who lives in a one level home in [place], [place]. Per patient, he plans to stay with his SO Melania Leonard at discharge. Patient reports that two of his medications are very expensive. One is an inhaler and costs about $800/month, and the other is a blood thinner. Patient states he gets most of his medications at [facility] in [place], but goes to [facility] in [place] for the inhaler and blood thinner. Patient shares he stopped drinking several years ago. Per patient he hasn't had alcohol in about three years and feels much more engaged with life. Patient also shares that he worked for [employer] for 38 years before retiring. Plan going forward: CAR LOADER will look into medication assistance programs for pt. CAR LOADER will also make referral for AD. Care Management team will continue to follow and assist with discharge planing and coordination of care as indicated. MIA Harley, [facility] Care Management, [phone] * Brief Op Note - Ronni Morales MD - 12/13/2023 11:29 AM EDT Preliminary HARSH Procedure Note: Patient Name: Rajan Faulkner : [id number] MR#: [id number] Case Date: 12/13/2023 Branch Service Specialist: Surgeons and Role: * Srini Null MD [...] AM EST Office Visit Cardiology at [address] [phone] Chrissy Zepeda APRN [facility] [address] Scheduled Orders Name Type Priority Associated Diagnoses [...] Typical atrial flutter Cardioversion Elective Arrhythmia External (80838) 12/13/2023 10:38 AM EDT typical aflutter HARSH complete wo contrast (04888) 12/13/2023 10:38 AM EDT typical aflutter ECHO [...] * Digoxin level (12/16/2023 7:43 AM EDT) [facility] Digoxin 1.0 0.8 - 2.0 mcg/L 12/16/2023 8:54 AM EDT [facility] Blood VENOUS BLOOD SPECIMEN / Unknown IP Care Team Draw / Unknown 12/16/2023 7:43 AM EDT 12/16/2023 8:06 AM EDT Layo Starr MD CHEMISTRY ORDERABLES [facility] [place] [address] * Magnesium (12/16/2023 2:16 AM EDT) [facility] Magnesium 0.92 0.69 - 1.07 mMol/L 12/16/2023 3:05 AM EDT [facility] Blood VENOUS BLOOD SPECIMEN / Unknown IP Care Team Draw / Unknown 12/16/2023 2:16 AM EDT 12/16/2023 2:35 AM EDT Layo Starr MD CHEMISTRY ORDERABLES [facility] [place] [address] * (ABNORMAL) CBC (with Diff) (12/16/2023 2:16 AM EDT) [facility] White Blood Cell 9.96(H) 4.00 - 9.50 x10(3)/mc L 12/16/2023 2:42 AM EDT [facility] Red Blood Cell 4.66 4.58 - 5.54 x10(6)/mc L 12/16/2023 2:42 AM EDT [facility] Hemoglobin 14.7 13.7 - 16.5 g/dL 12/16/2023 2:42 AM EDT [facility] Hematocrit 43.2 40.5 - 48.5 % 12/16/2023 2:42 AM [facility] Mean Cell Volume 92.7 82.9 - 93.1 fL 12/16/2023 2:42 AM [facility] Mean Cell Hemoglobin 31.5 27.5 - 32.1 pg 12/16/2023 2:42 AM [facility] Mean Cell Hemoglobin Concentration 34.0 32.0 - 35.7 g/dL 12/16/2023 2:42 AM [facility] Platelet 241 145 - 357 x10(3)/mc L 12/16/2023 2:42 AM [facility] Mean Platelet Volume 9.7 7.6 - 12.9 fL 12/16/2023 2:42 AM [facility] RDW Standard Deviation 46.5(H) 36.0 - 45.0 fL 12/16/2023 2:42 AM [facility] RDW coefficient of variation 13.8 11.4 - 13.8 % 12/16/2023 2:42 AM [facility] NRBC% auto 0.0 % 12/16/2023 2:42 AM [facility] NRBC Absolute <0.01 <0.01 x10(3)/mc L 12/16/2023 2:42 AM [facility] Neutrophil % 68.8 % 12/16/2023 2:42 AM [facility] Neutrophil Absolute (ANC) - Automated 6.85(H) 1.70 - 6.10 x10(3)/mc L 12/16/2023 2:42 AM [facility] Lymph % 18.0 % 12/16/2023 2:42 AM [facility] Lymph Absolute 1.79 0.90 - 3.20 x10(3)/mc L 12/16/2023 2:42 AM [facility] Monocyte % 11.4 % 12/16/2023 2:42 AM [facility] Monocyte Absolute 1.14(H) 0.30 - 0.90 x10(3)/mc L 12/16/2023 2:42 AM EDT [facility] Eos % 1.0 % 12/16/2023 2:42 AM EDT [facility] Eos Absolute 0.10 0.00 - 0.40 x10(3)/mc L 12/16/2023 2:42 AM EDT [facility] Basophil % 0.6 % 12/16/2023 2:42 AM EDT [facility] Baso Absolute 0.06 0.00 - 0.10 x10(3)/mc L 12/16/2023 2:42 AM EDT [facility] Immature Gran % 0.2 % 2:42 AM EDT [facility] Immature Gran Absolute <0.04 0.00 - 0.04 x10(3)/mc L 12/16/2023 2:42 AM EDT [facility] Blood VENOUS BLOOD SPECIMEN / Unknown IP Care Team Draw / Unknown 12/16/2023 2:16 AM EDT 12/16/2023 2:35 AM EDT Layo Starr MD HEMATOLOGY ORDERABLE S [facility] [place] [address] * (ABNORMAL) Basic Metabolic Panel (12/16/2023 2:16 AM EDT) Glucose 101 65 - 199 mg/dL 12/16/2023 3:05 AM EDT [facility] Comment:Glucose Concentratio n >=200 mg/dL plus symptoms is consistent with Diabetes Mellitus. Blood Urea Nitrogen 25(H) 10 - 20 mg/dL 12/16/2023 3:05 AM EDT [facility] Creatinine 1.18 0.80 - 1.50 mg/dL 12/16/2023 3:05 AM EDT [facility] Sodium 137 135 - 145 mMol/L 12/16/2023 3:05 AM [facility] Potassium 3.8 3.5 - 5.0 mMol/L 12/16/2023 3:05 AM [facility] Chloride 100 98 - 107 mMol/L 12/16/2023 3:05 AM [facility] Carbon Dioxide 25 22 - 31 mMol/L 12/16/2023 3:05 AM [facility] Anion Gap 12 5 - 15 mMol/L 12/16/2023 3:05 AM [facility] Calcium 9.3 8.5 - 10.5 mg/dL 12/16/2023 3:05 AM [facility] Est Glomerular Filtration Rate - Male 65 mL/min/1. 73 m?? 12/16/2023 3:05 AM [facility] Comment: This patient's estimated [...] AM EDT Layo Starr MD CHEMISTRY ORDERABLES [facility] [place] [address] * Magnesium (12/15/2023 2:31 AM EDT) Magnesium 1.03 0.69 - 1.07 mMol/L 12/15/2023 3:20 AM EDT [facility] Blood VENOUS BLOOD SPECIMEN / Unknown IP Care Team Draw / Unknown 12/15/2023 2:31 AM EDT 12/15/2023 2:47 AM EDT Layo Starr MD CHEMISTRY ORDERABLES [facility] [place] [address] * (ABNORMAL) CBC (with Diff) (12/15/2023 2:31 AM EDT) White Blood Cell 9.33 4.00 - 9.50 x10(3)/mc L 12/15/2023 2:56 AM EDT [facility] Red Blood Cell 4.54(L) 4.58 - 5.54 x10(6)/mc L 12/15/2023 2:56 AM [facility] Hemoglobin 14.2 13.7 - 16.5 g/dL 12/15/2023 2:56 AM T [facility] Hematocrit 42.5 40.5 - 48.5 % 12/15/2023 2:56 AM [facility] Mean Cell Volume 93.6(H) 82.9 - 93.1 fL 12/15/2023 2:56 AM [facility] Mean Cell Hemoglobin 31.3 27.5 - 32.1 pg 12/15/2023 2:56 AM [facility] Mean Cell Hemoglobin Concentration 33.4 32.0 - 35.7 g/dL 12/15/2023 2:56 AM [facility] Platelet 223 145 - 357 x10(3)/mc L 12/15/2023 2:56 AM [facility] Mean Platelet Volume 9.8 7.6 - 12.9 fL 12/15/2023 2:56 AM [facility] RDW Standard Deviation 48.0(H) 36.0 - 45.0 fL 12/15/2023 2:56 AM [facility] RDW coefficient of variation 13.9(H) 11.4 - 13.8 % 12/15/2023 2:56 AM [facility] NRBC% auto 0.0 % 12/15/2023 2:56 AM [facility] NRBC Absolute <0.01 <0.01 x10(3)/mc L 12/15/2023 2:56 AM [facility] Neutrophil % 70.1 % 12/15/2023 2:56 AM [facility] Neutrophil Absolute (ANC) - Automated 6.54(H) 1.70 - 6.10 x10(3)/mc L 12/15/2023 2:56 AM [facility] Lymph % 14.6 % 12/15/2023 2:56 AM [facility] Lymph Absolute 1.36 0.90 - 3.20 x10(3)/mc L 12/15/2023 2:56 AM [facility] Monocyte % 13.5 % 12/15/2023 2:56 AM [facility] Monocyte Absolute 1.26(H) 0.30 - 0.90 x10(3)/mc L 12/15/2023 2:56 AM [facility] Eos % 1.1 % 12/15/2023 2:56 AM [facility] Eos Absolute 0.10 0.00 - 0.40 x10(3)/mc L 12/15/2023 2:56 AM [facility] Basophil % 0.5 % 12/15/2023 2:56 AM [facility] Baso Absolute 0.05 0.00 - 0.10 x10(3)/mc L 12/15/2023 2:56 AM [facility] Immature Gran % 0.2 % 2:56 AM [facility] Immature Gran Absolute <0.04 0.00 - 0.04 x10(3)/mc L 12/15/2023 2:56 AM EDT [facility] Blood VENOUS BLOOD SPECIMEN / Unknown IP Care Team Draw / Unknown 12/15/2023 2:31 AM EDT 12/15/2023 2:47 AM EDT Layo Starr MD HEMATOLOGY ORDERABLE S [facility] [place] [address] * (ABNORMAL) Basic Metabolic Panel (12/15/2023 2:31 AM EDT) Glucose 109 65 - 199 mg/dL 12/15/2023 3:20 AM EDT [facility] Comment:Glucose Concentratio n >=200 mg/dL plus symptoms is consistent with Diabetes Mellitus. Blood Urea Nitrogen 27(H) 10 - 20 mg/dL 12/15/2023 3:20 AM T [facility] Creatinine 1.16 0.80 - 1.50 mg/dL 12/15/2023 3:20 AM [facility] Sodium 138 135 - 145 mMol/L 12/15/2023 3:20 AM [facility] Potassium 3.7 3.5 - 5.0 mMol/L 12/15/2023 3:20 AM [facility] Chloride 100 98 - 107 mMol/L 12/15/2023 3:20 AM [facility] Carbon Dioxide 27 22 - 31 mMol/L 12/15/2023 3:20 AM [facility] Anion Gap 11 5 - 15 mMol/L 12/15/2023 3:20 AM [facility] Calcium 9.2 8.5 - 10.5 mg/dL 12/15/2023 3:20 AM [facility] Est Glomerular Filtration Rate - Male 67 mL/min/1. 73 m?? 12/15/2023 3:20 AM [facility] Comment: This patient's estimated [...] Starr MD CHEMISTRY ORDERABLES Performing Organization Address City/[facility]/ZIP Co de Phone Number [facility] [place] [address] * Digoxin level (12/15/2023 2:31 AM EDT) Digoxin 1.0 0.8 - 2.0 mcg/L 12/15/2023 3:16 AM EDT [facility] Blood VENOUS BLOOD SPECIMEN / Unknown IP Care Team Draw / Unknown 12/15/2023 2:31 AM EDT 12/15/2023 2:47 AM EDT Layo Starr MD CHEMISTRY ORDERABLES [facility] [place] [address] * Digoxin level (12/14/2023 8:08 AM EDT) Digoxin 0.9 0.8 - 2.0 mcg/L 12/14/2023 9:05 AM EDT [facility] Blood VENOUS BLOOD SPECIMEN / Unknown IP Care Team Draw / Unknown 12/14/2023 8:08 AM EDT 12/14/2023 8:25 AM EDT Layo Starr MD CHEMISTRY ORDERABLES [facility] [place] [address] * Magnesium (12/14/2023 3:02 AM EDT) [facility] Magnesium 0.74 0.69 - 1.07 mMol/L 12/14/2023 3:52 AM EDT [facility] Blood VENOUS BLOOD SPECIMEN / Unknown IP Care Team Draw / Unknown 12/14/2023 3:02 AM EDT 12/14/2023 3:22 AM EDT Layo Starr MD CHEMISTRY ORDERABLES Performing Organization Address City/[facility]/ZIP Co de Phone Number [facility] [place] [address] * (ABNORMAL) CBC (with Diff) (12/14/2023 3:02 AM EDT) [facility] White Blood Cell 12.68(H) 4.00 - 9.50 x10(3)/mc L 12/14/2023 3:31 AM EDT [facility] Red Blood Cell 4.49(L) 4.58 - 5.54 x10(6)/mc L 12/14/2023 3:31 AM EDT [facility] Hemoglobin 13.9 13.7 - 16.5 g/dL 12/14/2023 3:31 AM EDT [facility] Hematocrit 42.4 40.5 - 48.5 % 12/14/2023 3:31 AM EDT [facility] Mean Cell Volume 94.4(H) 82.9 - 93.1 fL 12/14/2023 [facility] Mean Cell Hemoglobin 31.0 27.5 - 32.1 pg 12/14/2023 3:31 AM EDT [facility] Mean Cell Hemoglobin Concentration 32.8 32.0 - 35.7 g/dL 12/14/2023 3:31 AM EDT [facility] Platelet 214 145 - 357 x10(3)/mc L 12/14/2023 3:31 AM [facility] Mean Platelet Volume 9.9 7.6 - 12.9 fL 12/14/2023 3:31 AM [facility] RDW Standard Deviation 48.6(H) 36.0 - 45.0 fL 12/14/2023 3:31 AM [facility] RDW coefficient of variation 13.9(H) 11.4 - 13.8 % 12/14/2023 3:31 AM [facility] NRBC% auto 0.0 % 12/14/2023 3:31 AM [facility] NRBC Absolute <0.01 <0.01 x10(3)/mc L 12/14/2023 3:31 AM [facility] Neutrophil % 79.3 % 12/14/2023 3:31 AM [facility] Neutrophil Absolute (ANC) - Automated 10.06(H) 1.70 - 6.10 x10(3)/mc L 12/14/2023 3:31 AM [facility] Lymph % 8.5 % 12/14/2023 3:31 AM [facility] Lymph Absolute 1.08 0.90 - 3.20 x10(3)/mc L 12/14/2023 3:31 AM [facility] Monocyte % 11.3 % 12/14/2023 3:31 AM [facility] Monocyte Absolute 1.43(H) 0.30 - 0.90 x10(3)/mc L 12/14/2023 3:31 AM [facility] Eos % 0.1 % 12/14/2023 3:31 AM [facility] Eos Absolute <0.04 0.00 - 0.40 x10(3)/mc L 12/14/2023 3:31 AM [facility] Basophil % 0.4 % 12/14/2023 3:31 AM [facility] Baso Absolute 0.05 0.00 - 0.10 x10(3)/mc L 12/14/2023 3:31 AM EDT [facility] Immature Gran % 0.4 % 3:31 AM EDT [facility] Immature Gran Absolute 0.05(H) 0.00 - 0.04 x10(3)/mc L 12/14/2023 3:31 AM EDT [facility] Blood VENOUS BLOOD SPECIMEN / Unknown IP Care Team Draw / Unknown 12/14/2023 3:02 AM EDT 12/14/2023 3:22 AM EDT Layo Starr MD HEMATOLOGY ORDERABLE S [facility] [place] [address] * (ABNORMAL) Basic Metabolic Panel (12/14/2023 3:02 AM EDT) Glucose 107 65 - 199 mg/dL 12/14/2023 3:52 AM [facility] Comment:Glucose Concentratio n >=200 mg/dL plus symptoms is consistent with Diabetes Mellitus. Blood Urea Nitrogen 31(H) 10 - 20 mg/dL 12/14/2023 3:52 AM [facility] Creatinine 1.33 0.80 - 1.50 mg/dL 12/14/2023 3:52 AM EDT [facility] Sodium 137 135 - 145 mMol/L 12/14/2023 3:[facility] Potassium 3.2(L) 3.5 - 5.0 mMol/L 12/14/2023 3:52 [facility] Chloride 97(L) 98 - 107 mMol/L 12/14/2023 3:52 [facility] Carbon Dioxide 28 22 - 31 mMol/L 12/14/2023 3:52 AM [facility] Anion Gap 12 5 - 15 mMol/L 12/14/2023 3:52 AM EDT [facility] Calcium 9.3 8.5 - 10.5 mg/dL 12/14/2023 3:52 AM EDT [facility] Est Glomerular Filtration Rate - Male 56 mL/min/1. 73 m?? 12/14/2023 3:52 AM EDT [facility] Comment: This patient's [...] Starr MD CHEMISTRY ORDERABLES Performing Organization Address City/State/[facility] Co de Phone Number [facility] [place] [address] * HARSH W LMTD SPECTRAL DOPPLER COLOR DOPPLER (12/13/2023 12:02 PM EDT) Anatomical Region Laterality Modality Cardiac Other 12/13/2023 10:1 2 AM EDT Narrative 12/13/2023 12:29 PM EDT ? Transesophageal Echocardiogram Report Name: RAJAN FAULKNER ?Study Date: 12/13/2023 10:12 AM ? Patient Location: ^ORMN2^A : 1950 ? Account: [id number] Age: 72 yrs Gender: Male Ordering Physician: LAYO STARR Referring Physician: DEBORAH CHA Performed By: Ronni Morales MD Reason For Study: pre cardioversion Exam Location: [facility]. Interpretation Summary 1. There is heavy smoke [...] RAJAN FAULKNER Study Date: 0:12 AM Patient Location:ORMN2^A : 1950 Account: [id number] Age: 72 yrs Gender: Male Ordering Physician: LAYO STARR Referring Physician: DEBORAH CHA Performed By: Ronni Morales MD Reason For Study: pre cardioversion Exam Location: [facility]. Interpretation Summary 1. There is heavy smoke [...] AM EDT Narrative 12/13/2023 9:27 AM EDT [address] [place] [address] ? Echocardiogram Report Name: RAJAN FAULKNER W ?Study Date: 12/13/2023 07:07 AMBP: 121/89 mmHg ? Patient Location: ^471^A : 1950 ? Height: 173 cm ? Account: [id number] Age: 72 yrs ? Weight: 81 kg Gender: Male ?BSA: 1.9 m2 Ordering Physician: NING BOLIVAR Referring Physician: DEBORAH CHA Performed By: CONNOR Liao Reason For Study: atrial flutter,chf Exam Location: [facility]. Interpretation Summary Left ventricle is of normal size. Wall thickness is mildly increased. The left ventricular ejection fraction is 29% by Braun's biplane. There is global hypokinesis with regional variation. The right ventricle is probably normal in size. Right ventricular systolic function is mildly decreased. There is mild to moderate mitral regurgitation. Procedure Complete-[id number]. Image enhancement Definity was used for left [...] Note Emre Corbett MD - 12/13/2023 [address] [place] [address] Echocardiogram Report Name: RAJAN FAULKNER Study Date: 407:07 AMBP: 121/89 mmHg Patient Location:[facility] : 1950 Height: 173 cm Account: [id number] Age: 72 yrs Weight: 81 kg Gender: Male BSA: 1.9 m2 Ordering Physician: NING BOLIVAR Referring Physician: DEBORAH CHA Performed By: CONNOR Liao Reason For Study: atrial flutter,chf Exam Location: [facility]. Interpretation Summary Left ventricle is of normal size. Wall thickness is mildly increased. Theleft ventricular ejection fraction is 29% by Braun's biplane. There isglobal hypokinesis with regional variation. The right ventricle is probably normal in size. Right ventricularsystolic function is mildly decreased. There is mild to moderate mitral regurgitation. Procedure Complete-[id number]. Image enhancement Definity was used for left [...] 65 - 199 mg/dL 12/13/2023 8:38 AM [facility] Comment:Glucose Concentratio n >=200 mg/dL plus symptoms is consistent with Diabetes Mellitus. Blood Urea Nitrogen 25(H) 10 - 20 mg/dL 12/13/2023 8:38 AM [facility] Creatinine 1.31 0.80 - 1.50 mg/dL 12/13/2023 8:38 AM [facility] Sodium 140 135 - 145 mMol/L 12/13/2023 8:38 AM [facility] Potassium 3.3(L) 3.5 - 5.0 mMol/L 12/13/2023 8:38 AM [facility] Chloride 99 98 - 107 mMol/L 12/13/2023 8:38 AM [facility] Carbon Dioxide 28 22 - 31 mMol/L 12/13/2023 8:38 AM [facility] Anion Gap 13 5 - 15 mMol/L 12/13/2023 8:38 AM [facility] Calcium 9.3 8.5 - 10.5 mg/dL 12/13/2023 8:38 AM EDT [facility] Est Glomerular Filtration Rate - Male 57 mL/min/1. 73 m?? 12/13/2023 8:38 AM [facility] Comment: This patient's estimated [...] AM EDT Layo Starr MD CHEMISTRY ORDERABLES [facility] [place] [address] * Lipid Panel (Reflex Direct LDL) (12/13/2023 2:22 AM EDT) Pathologist [facility] Cholesterol, Total 141 mg/dL 12/13/2023 3:[facility] Comment: Desirable: < 200 mg/dL Borderline High: 200 - 239 mg/dL High: > or = 240 mg/dL Triglyceride 83 mg/dL 12/13/2023 3:05 AM [facility] Comment: Normal: <150 mg/dL Borderline High: 150-199 mg/dL High: 200-499 mg/dL Very High: > or =500 mg/dL HDL Cholesterol 54 mg/dL 3:05 AM [facility] Comment:Males: High Risk: <4 0 mg/dL LDL Cholesterol 71 mg/dL 4 3:05 AM [facility] Comment: Desirable: <100 mg/dL Above Desirable: 100-129 mg/dL Borderline High: 130-159 mg/dL High: 160-189 mg/dL Very High: > or =190 mg/dL Note: LDL calculation updated to the NIH LDL formula as of 10/13/2023 Non-HDL Cholesterol 87 mg/dL 12/13/2023 3:05 AM EDT [facility] Comment: Desirable: <130 mg/dL Above Desirable: 130-159 mg/dL Borderline High: 160-189 mg/dL High: 190-219 mg/dL Very High: > or = 220 mg/dL Blood VENOUS BLOOD SPECIMEN / Unknown IP Care Team Draw / Unknown 12/13/2023 2:22 AM EDT 12/13/2023 2:35 AM EDT [facility] - 12/13/2023 3:05 AM EDT It [...] ACC/AHA Guidelines (most recently Matt et al. [facility] 12/12/21): * For individuals with atherosclerotic cardiovascular [...] disease) Ning Bolivar MD CHEMISTRY OR DERABLES Performing Organization Address City/State/[facility] Co de Phone Number [facility] [place] [address] * XR Chest PA & Lateral (Generic) (12/12/2023 10:47 PM EDT) Pathologist [employer] WORKSTATION ID [id number] RAD Anatomical Region Laterality Modality Chest N/A [...] questions please contact the health home care assistant that requested your imaging first. ? Electronically signed by: Maryann Magallanes MD, [facility] ([phone]), at 12/13/2023 2:25 AM Narrative 12/13/2023 2:25 [...] have questions please contactthe health home care assistant that requested your imaging first. Electronically signed by: Maryann Magallanes MD[facility]([phone]), at 12/13/2023 2:25 AM Ning Bolivar MD IMG DX ORDER PHILOMENA * (ABNORMAL) CBC (with Diff) (12/12/2023 8:42 PM EDT) White Blood Cell 10.33(H) 4.00 - 9.50 x10(3)/mc L 12/12/2023 9:12 PM EDT [facility] Red Blood Cell 4.78 4.58 - 5.54 x10(6)/mc L 12/12/2023 9:12 PM [facility] Hemoglobin 15.1 13.7 - 16.5 g/dL 12/12/2023 9:12 PM [facility] Hematocrit 45.4 40.5 - 48.5 % 12/12/2023 9:12 PM [facility] Mean Cell Volume 95.0(H) 82.9 - 93.1 fL 12/12/2023 9:12 PM [facility] Mean Cell Hemoglobin 31.6 27.5 - 32.1 pg 12/12/2023 9:12 PM [facility] Mean Cell Hemoglobin Concentration 33.3 32.0 - 35.7 g/dL 12/12/2023 9:12 PM [facility] Platelet 236 145 - 357 x10(3)/mc L 12/12/2023 9:12 PM [facility] Mean Platelet Volume 9.8 7.6 - 12.9 fL 12/12/2023 9:12 PM [facility] RDW Standard Deviation 50.2(H) 36.0 - 45.0 fL 12/12/2023 9:12 PM [facility] RDW coefficient of variation 14.4(H) 11.4 - 13.8 % 12/12/2023 9:12 PM [facility] NRBC% auto 0.0 % 12/12/2023 9:12 PM [facility] NRBC Absolute <0.01 <0.01 x10(3)/mc L 12/12/2023 9:12 PM [facility] Neutrophil % 76.7 % 12/12/2023 9:12 PM [facility] Neutrophil Absolute (ANC) - Automated 7.92(H) 1.70 - 6.10 x10(3)/mc L 12/12/2023 9:12 PM [facility] Lymph % 11.5 % 12/12/2023 9:12 PM [facility] Lymph Absolute 1.19 0.90 - 3.20 x10(3)/mc L 12/12/2023 9:12 PM EDT [facility] Monocyte % 11.2 % 12/12/2023 9:12 PM EDT [facility] Monocyte Absolute 1.16(H) 0.30 - 0.90 x10(3)/mc L 12/12/2023 9:12 PM EDT [facility] Eos % 0.0 % 12/12/2023 9:12 PM EDT [facility] Eos Absolute <0.04 0.00 - 0.40 x10(3)/mc L 12/12/2023 9:12 PM EDT [facility] Basophil % 0.4 % 12/12/2023 9:12 PM EDT [facility] Baso Absolute 0.04 0.00 - 0.10 x10(3)/mc L 12/12/2023 9:12 PM EDT [facility] Immature Gran % 0.2 % 9:12 PM EDT [facility] Immature Gran Absolute <0.04 0.00 - 0.04 x10(3)/mc L 12/12/2023 9:12 PM EDT [facility] Blood VENOUS BLOOD SPECIMEN / Unknown Venipuncture / Unknown 12/12/2023 8:42 PM EDT 12/12/2023 8:46 PM EDT Ning Bolivar MD HEMATOLOGY O RDERABLES [facility] [place] [address] * APTT (12/12/2023 8:41 PM EDT) Partial Thromboplastin Time 32 25 - 37 sec 12/12/2023 9:22 PM EDT [facility] Comment: The PTT is NOT appropriate for heparin monitoring. Use the Anti-Xa level for heparin monitoring (HEP UFH) or LMWH monitoring (HEP LMW). A PTT less than 37 seconds generally indicates adequate hemostasis. Blood VENOUS BLOOD SPECIMEN / Unknown Venipuncture / Unknown 12/12/2023 8:41 PM EDT 12/12/2023 8:46 PM EDT Ning Bolivar MD HEMATOLOGY O RDERABLES Performing Organization Address City/[facility]/ZIP Co de Phone Number [facility] [place] [address] * (ABNORMAL) Hepatic Function Panel (12/12/2023 8:41 PM EDT) Albumin 4.5 3.2 - 5.2 g/dL 12/13/2023 2:11 AM EDT [facility] Aspartate Aminotransferase 12/13/2023 2:11 AM EDT [facility] Comment:Unable to report due to hemolysis. Alanine Aminotransferase 14 0 - 55 unit/L 12/13/2023 2:11 AM EDT [facility] Alkaline Phosphatase 71 40 - 130 unit/L 12/13/2023 2:11 AM EDT [facility] Bilirubin, Total 1.3 <=1.3 mg/dL 12/13/2023 2:11 AM EDT [facility] Bilirubin, Direct 0.4(H) 0.0 - 0.3 mg/dL 12/13/2023 2:11 AM EDT [facility] Protein, Total 8.2(H) 6.1 - 8.0 g/dL 12/13/2023 2:11 AM EDT [facility] Blood VENOUS BLOOD SPECIMEN / Unknown Venipuncture / Unknown 12/12/2023 8:41 PM EDT 12/12/2023 8:46 PM EDT Ning Bolivar MD CHEMISTRY OR DERABLES Performing Organization Address City/[facility]/ZIP Co de Phone Number [facility] [place] [address] * (ABNORMAL) Prothrombin Time (12/12/2023 8:41 PM EDT) Pathologist [facility] Prothrombin Time 13.2(H) 9.4 - 12.5 sec 12/12/2023 9:22 PM EDT [facility] International Normalization Ratio 1.2 <=4.9 12/12/2023 9:22 PM EDT [facility] Comment: An INR < 2.0 [...] EDT Ning Bolivar MD HEMATOLOGY O RDERABLES [facility] [place] [address] * (ABNORMAL) pro-Brain Natriuretic Peptide (12/12/2023 8:41 PM EDT) [facility] NT-proBNP 6,282(H) <=124 pg/mL 12/13/2023 1:41 AM EDT [facility] Blood VENOUS BLOOD SPECIMEN / Unknown Venipuncture / Unknown 12/12/2023 8:41 PM EDT 12/12/2023 8:46 PM EDT Ning Bolivar MD CHEMISTRY OR DERABLES [facility] [place] [address] * TSH (12/12/2023 8:41 PM EDT) [facility] Thyroid Stimulating Hormone 0.85 0.27 - 4.20 mcIU/mL 12/13/2023 1:41 AM EDT [facility] Blood VENOUS BLOOD SPECIMEN / Unknown Venipuncture / Unknown 12/12/2023 8:41 PM EDT 12/12/2023 8:46 PM EDT Ning Bolivar MD CHEMISTRY OR DERABLES Performing Organization Address City/[facility]/ZIP Co de Phone Number [facility] [place] [address] * Phosphorus (12/12/2023 8:41 PM EDT) Phosphorus 3.6 2.5 - 4.5 mg/dL 12/13/2023 1:43 AM EDT [facility] Blood VENOUS BLOOD SPECIMEN / Unknown Venipuncture / Unknown 12/12/2023 8:41 PM EDT 12/12/2023 8:46 PM EDT Ning Bolivar MD CHEMISTRY OR DERABLES Performing Organization Address [facility] Co de Phone Number [facility] [place] [address] * Magnesium (12/12/2023 8:41 PM EDT) Magnesium 0.86 0.69 - 1.07 mMol/L 12/13/2023 1:43 AM EDT [facility] Blood VENOUS BLOOD SPECIMEN / Unknown Venipuncture / Unknown 12/12/2023 8:41 PM EDT 12/12/2023 8:46 PM EDT Ning Bolivar MD CHEMISTRY OR DERABLES Performing Organization Address City/[facility]/ZIP Co de Phone Number [facility] [place] [address] * (ABNORMAL) Basic Metabolic Panel (12/12/2023 8:41 PM EDT) Glucose 114 65 - 199 mg/dL 12/13/2023 1:55 AM EDT [facility] Comment:Glucose Concentratio n >=200 mg/dL plus symptoms is consistent with Diabetes Mellitus. Blood Urea Nitrogen 21(H) 10 - 20 mg/dL 12/13/2023 1:55 AM [facility] Creatinine 1.28 0.80 - 1.50 mg/dL 12/13/2023 1:55 AM [facility] Sodium 139 135 - 145 mMol/L 12/13/2023 1:55 AM [facility] Potassium 3.5 3.5 - 5.0 mMol/L 12/13/2023 1:55 AM [facility] Chloride 96(L) 98 - 107 mMol/L 12/13/2023 1:55 AM [facility] Carbon Dioxide 20(L) 22 - 31 mMol/L 12/13/2023 1:55 AM [facility] Anion Gap 23(H) 5 - 15 mMol/L 12/13/2023 1:55 AM [facility] Calcium 9.9 8.5 - 10.5 mg/dL 12/13/2023 1:55 AM [facility] Est Glomerular Filtration Rate - Male 59 mL/min/1. 73 m?? 12/13/2023 1:55 AM [facility] Comment: This patient's estimated [...] EDT Ning Bolivar MD CHEMISTRY OR DERABLES [facility] [place] [address] * EKG 12 Lead (12/12/2023 6:31 PM EDT) Ventricular rate 153 BPM MUSE SYSTEM Atrial Rate 306 BPM MUSE SYSTEM QRS Duration 96 ms MUSE SYSTEM Q-T Interval 300 ms MUSE SYSTEM QTC Calculated (Bezet) 479 ms MUSE SYSTEM Calculated R [place] 100 degrees MUSE SYSTEM Calculated T [place] -112 degrees MUSE SYSTEM INTERPRETATION Atrial flutter with 2:1 A-V conduction Rightward axis Minimal voltage criteria for LVH, may be normal variant ( [place] product ) Nonspecific T wave abnormality Abnormal ECG When compared with ECG of 08-NOV-2022 13:18, Atrial flutter has replaced Sinus rhythm Vent. rate has increased BY 106 BPM Confirmed by MD YOCASTA, DANIELLE () on 12/12/2023 9:43:38 PM MUSE SYSTEM 12/12/2023 [...] on 12/15/23 at 0900, Until Discontinued, Routine Given [...] dose, First dose (after last modification) on [facility] 12/14/23 at 0900, Routine Given [...] Intravenous, 2 TIMES DAILY, First dose on [facility] 12/12/23 at 2015, Until Discontinued Given 12/13/2023 [...] Comment: patient reports 3 loose stools today) 809 (Not Given - Provider: Ewa Palencia RN [...] Palencia RN) 0835 (Given - Provider: Ewa Palencia, CHRISTINA) [...] Brittney Jackson RN)1211 (Given - Provider: Teresa Morelos, CHRISTINA)1703 (Given - Provider: Teresa Morelos RN) 0019 [...] tablet., Routine 0902 (Given - Provider: Gregory Lizarrgaa RN) potassium chloride ER (Klor-Con M) crystal [...] 09 (Given - Provider: Gregory Lizarraga RN) 0811 (Given - Provider: Ewa Palencia, CHRISTINA) 0836 (Given - Provider: Ewa Palencia, RN) PRN Medication Order 12/14/2023 12/15/2023 12/16/2023 acetaminophen (Tylenol) tablet 650 mg 650 mg, Oral, EVERY 4 HOURS PRN, Starting on Stephanie 12/12/23 at 2025, Until 12/16/23 at 1632, Pain, Headaches, Maximum dose of acetaminophen is 4,000 mg from all sources in 24 hours., Routine 2023 (Given - Provider: Brittney Jackson, CHRISTINA) 1946 (Given - Provider: Brittney Jackson, RN) albuteroL 90 mcg/actuation inhaler 2 puff 2 [...] EVERY 6 HOURS PRN, Starting on Stephanie 10/3/24 at 2025, Until Sat12/16/23 at 1632, Anxiety, Routine magnesium hydroxide (Milk of Magnesia) (80mg/mL) oral liquid 2,400 mg 2,400 mg (30 mL), Oral, DAILY PRN, Starting on Stephanie 12/12/23 at 2025, Until Sat12/16/23 at 1632, Constipation, 30 mL regular (400 mg/5 mL) = 10 mL concentrate (2400 mg/10 mL), Routine metoprolol (LOPRESSOR) injection 5 mg 5 mg, Intravenous, EVERY 5 MIN PRN, Starting on Stephanie 12/12/23 at 194, Until Sat12/16/23 at 1632, Elevated [...] Routine documented in this encounter Care Teams Prism Measurer Relationship Specialty Start Date End Date Tami Olivia [address] [place] [address] PCP - General Family Medicine 12/30/20 documented as of this encounter
--- OUTSIDE RECORDS SUMMARY | 2023-12-31 22:45 | XMS_ITS | Encounter Summary ---
Author Organization [facility] [place] [address] Care Team Providers Care Tier Lift Operator Name Role Phone Tami Olivia Primary Care Provider [phone] Reason for Visit * Auth/Cert (Routine) Specialty Diagnoses / Procedures Referred By Bert t Referred To Contact Diagnoses Atrial flutter atrial flutter Procedures PRO CARDIOVERSION ELECTIVE ARRHYTHMIA EXTERNAL CARDIOVERSION-ELECTIVE (WRVU 2) Sekou Canales MD [facility] [place] [address] [facility] Referral ID Status Reason Start Date Expiration Date Visits Re quested Visits Authorized [id number] 1 1 Encounter Details Date Type Department Care Team (Late st Contact Info) Description 11/08/2022 12:37 PM EDT Anesthesia [place] [address] Mary Wagoner MD [facility] [place] [address] Shashank Chung MD [facility] [place] [address] Anesthesia Record Procedure Summary Procedure Name Responsible [...] 1221; median vein (underside of arm), left; tahm-tmt-coozzf catheter system; Anatomical Landmarks; 20 gauge, 1 [...] Procedure Summary Date: 11/08/22 Room / Location: [facility] MINOR SURGERY 2 / [facility] MAIN OR Anesthesia Start: 1237 Anesthesia Stop: 1257 Procedure: CARDIOVERSION-ELECTIVE (WRVU 2) Diagnosis: (atrial flutter) Surgeons: Sekou Canales MD Responsible Provider: Mary Wagoner MD Anesthesia Type: MAC ASA Status: 3 All Anesthesia Providers: Anesthesiologist: Mary Wagoner MD HUMAN RESOURCES ADVISOR: Yosef Cantu CRNA Vitals Value Taken Time BP 98/58 11/08/22 1300 Temp 36.3 ??C (97.3 ??F) 11/08/22 1256 Pulse 56 11/08/22 1328 Resp 14 11/08/22 1328 SpO2 100 % 11/08/22 1328 Pain Level Vitals shown include unvalidated device data. Patient Location: PACU/[facility] Level of Consciousness: Conscious but Sleepy [...] Thoracentesis Left 11/08/2021 Forauer, Ramírez Ziegler MD [facility] INTERVENTIONL RAD ??? PRO BRONCHOSCOPY, DIAGNOSTIC N/A 03/29/2021 BRONCHOSCOPY, DIAGNOSTIC (WRVU 2.78) performed by Gilmer Gutiérrez MD at [facility] OR ??? PRO BRONCHOSCOPY, DIAGNOSTIC N/A 02/08/2022 BRONCHOSCOPY, DIAGNOSTIC (WRVU 2.78) performed by Gilmer Gutiérrez MD at [facility] OR ??? PRO BRONCHOSCOPY, DIAGNOSTIC N/A 05/18/2022 BRONCHOSCOPY, DIAGNOSTIC (WRVU 2.53) performed by Gilmer Gutiérrez MD at [facility] OR ??? PRO DECORTICATION, PULMONARY, TOTAL Left 05/18/2022 @THORACOTOMY,DECORTICATION, PULMONARY, TOTAL (WRVU 26.65) performed by Gilmer Gutiérrez MD [facility] OR ? ? PRO INJECTION ANES AGENT &/ STEROID INTERCOSTAL NERVE SINGLE LEVEL Left 03/29/2021 NERVE BLOCK, INTERCOSTAL NERVE (WRVU 1.18) performed by Gilmer Gutiérrez MD at [facility] OR ??? PRO RECONSTRUCT INJURED CHEST Left 05/18/2022 @MAJOR RECONSTRUCTION, CHEST WALL (WRVU 22.51) performed by Gilmer Gutiérrez MD at [facility] OR ??? PRO THORACOSCOPY SURG LOBECTOMY Left 03/29/2021 @THORACOSCOPY,SURGICAL,W\LOBECTOMY,TOTAL OR SEGMENTAL (WRVU 24.64) performed by Johana Gutiérrez MD at [facility] OR ??? PRO THORACOSCOPY WITH BIOPSY OF PLEURA Left 02/08/2022 THORACOSCOPY; WITH BIOPSY(IES) OF PLEURA (WRVU 4.58) performed [facility] ??? PRO THORACOSCOPY WITH MEDIASTINAL AND REGIONAL LYMPHADENECTOMY 03/29/2021 @THORACOSCOPY, SURG; W/MEDIASTINAL& REGIONAL LYMPHADENECTOMY (WRVU 4.12) performed by Gilmer Gutiérrez MD at [facility] MAIN OR ??? PRO THORACOSCOPY WITH WEDGE RESECTION AND ANATOMIC LUNG RESECTN Left 03/29/2021 @THORACOSCOPY, SURG; W/DX WEDGE RESC W/ANATOMIC LUNG RESC (WRVU 3) performed by Johana Gutiérrez MD at [facility] MAIN OR Social History Tobacco Use ??? [...] risks discussed with patient. Plan discussed with HUMAN RESOURCES ADVISOR and attending. Anesthesia Screening documented in this encounter Plan of Treatment Upcoming Encounters Date Type Department Care Team (Late st Contact Info) Description 01/20/2024 10:40 AM EST Office Visit Cardiology at [address] [address] Chrissy Zepeda APRN [facility] [place] [address] Scheduled Procedures Name Priority Associated Diagnoses Date/Ti [...] mg documented in this encounter Care Teams Tier Lift Operator Relationship Specialty Start Date End Date Tami Olivia [address] [place] [address] PCP - General Family Medicine 12/30/20 documented as of this encounter
--- OUTSIDE RECORDS SUMMARY | 2023-12-31 22:45 | XMS_ITS | Encounter Summary ---
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 Discuss AFL ablation Basilia Joseph MD [address] [place] [id number] [facility] Cardiology [address] [place] [phone] Referral ID Status Reason Start Date Expiration Date V isits Requested Visits Authorized [id number] Closed Consult, Test & Treat PCP Updated and/or Approved 06/26/2022 06/26/2023 1 1 Encounter Details Date Type Department Care Team (Latest Contact Info) Description 06/26/2022 Transcribe Orders eDH Incoming Referrals [phone] Basilia Joseph MD Atrial flutter, unspecified type [...] Upcoming Encounters Date Type Department Care Team ([facility] st Contact Info) Description 01/20/2024 10:40 AM EST Office Visit Cardiology at [address] [address] Chrissy Zepeda, [facility] [place] [address] Scheduled Procedures Name Priority Associated Diagnoses Date/Ti [...] type documented in this encounter Care Teams Youth Court Judge Relationship Specialty Start Date End Date Tami Olivia [address] [place] [address] PCP - General Family Medicine 12/30/20 documented as of this encounter
--- OUTSIDE RECORDS SUMMARY | 2023-12-31 22:45 | XMS_ITS | Encounter Summary ---
Author Organization [facility] [place] [address] Care Team Providers Care Pharmacy District Manager Name Role Phone Tami Olivia Primary Care Provider [phone] Reason for Visit * Auth/Cert (Routine) Specialty Diagnoses / Procedures Referred By Bert gautam Referred To Contact Diagnoses Atrial flutter Atrial fibrillation Procedures EMERGENCY IPI Tiera Goldsmith MD [facility] [place] [address] [facility] Referral ID Status Reason Start Date Expiration Date Visits Re quested Visits Authorized [id number] 1 1 Encounter Details Date Type Department Care Team (Late st Contact Info) Description 12/13/2023 10:46 AM EDT Anesthesia Event [place] [address] Joseph Boogie MD [facility] [place] [address] Lance Graham CRNA [facility] [place] [address] Anesthesia Record Procedure Summary Procedure Name Responsible [...] by Jaimie Lopez RN 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; 2019 (rn staffing) ; median cubital vein (antecubital fossa), right; LDA not present upon assessment; 12/14/23; 0958 12/12/232019 by Clifton Francois RN 12/14/23 0958 by Sravanthi Tran RN 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; 2041 (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 No 12/13/2023 DH IPV Inpatient [...] Procedure Summary Date: 12/13/23 Room / Location: [facility] MINOR SURGERY 2 / [facility] MAIN OR Anesthesia Start: 104 Anesthesia Stop: 1126 Procedures: TRANSESOPHAGEAL ECHOCARDIOGRAM (WRVU 2.3) CARDIOVERSION-ELECTIVE (WRVU 2) Diagnosis: (typical aflutter) Surgeons: Srini Null MD Responsible Provider: Joseph Boogie MD Anesthesia Type: MAC ASA Status: 3 All Anesthesia Providers: Anesthesiologist: Joseph Boogie MD PORCELAIN BUILDUP ASSISTANT: Lance Graham CRNA Vitals Value Taken Time BP 98/66 12/13/23 1140 Temp 36.1 ??C (97 ??F) 12/13/23 1128 Pulse 140 12/13/23 1143 Resp 27 12/13/23 1143 SpO2 94 % 12/13/23 1143 Pain Level Vitals shown include unfiled device data. Patient Location: PACU/[facility] Level of Consciousness: Conscious but Sleepy [...] Thoracentesis Left 11/08/2021 Forauer, Ramírez Ziegler MD [facility] INTERVENTIONL RAD ??? PRO BRONCHOSCOPY, DIAGNOSTIC N/A 03/29/2021 BRONCHOSCOPY, DIAGNOSTIC (WRVU 2.78) performed by Gilmer Gutiérrez MD at [facility] OR ??? PRO BRONCHOSCOPY, DIAGNOSTIC N/A 02/08/2022 BRONCHOSCOPY, DIAGNOSTIC (WRVU 2.78) performed by Gilmer Gutiérrez MD at [facility] OR ??? PRO BRONCHOSCOPY, DIAGNOSTIC N/A 05/18/2022 BRONCHOSCOPY, DIAGNOSTIC (WRVU 2.53) performed by Gilmer Gutiérrez MD at [facility] OR ??? PRO CARDIOVERSION ELECTIVE ARRHYTHMIA EXTERNAL N/A 11/08/2022 CARDIOVERSION-ELECTIVE (WRVU 2) performed by Sekou Canales MD at [facility] OR ??? PRO DECORTICATION, PULMONARY, TOTAL Left 05/18/2022 @THORACOTOMY,DECORTICATION, PULMONARY, TOTAL (WRVU 26.65) performed by Gilmer Gutiérrez MD [facility] OR ? ? PRO INJECTION ANES AGENT &/ STEROID INTERCOSTAL NERVE SINGLE LEVEL Left 03/29/2021 NERVE BLOCK, INTERCOSTAL NERVE (WRVU 1.18) performed by Gilmer Gutiérrez MD at [facility] OR ??? PRO RECONSTRUCT INJURED CHEST Left 05/18/2022 @MAJOR RECONSTRUCTION, CHEST WALL (WRVU 22.51) performed by Gilmer Gutiérrez MD at [facility] OR ??? PRO THORACOSCOPY SURG LOBECTOMY Left 03/29/2021 @THORACOSCOPY,SURGICAL,W\LOBECTOMY,TOTAL OR SEGMENTAL (WRVU 24.64) performed by Johana Gutiérrez MD at [facility] MAIN OR ??? PRO THORACOSCOPY WITH BIOPSY OF PLEURA Left 02/08/2022 THORACOSCOPY; WITH BIOPSY(IES) OF PLEURA (WRVU 4.58) [facility] ??? PRO THORACOSCOPY WITH MEDIASTINAL AND REGIONAL LYMPHADENECTOMY 03/29/2021 @THORACOSCOPY, SURG; W/MEDIASTINAL& REGIONAL LYMPHADENECTOMY (WRVU 4.12) performed by Gilmer Gutiérrez MD at [facility] MAIN OR ??? PRO THORACOSCOPY WITH WEDGE RESECTION AND ANATOMIC LUNG RESECTN Left 03/29/2021 @THORACOSCOPY, SURG; W/DX WEDGE RESC W/ANATOMIC LUNG RESC (WRVU 3) performed by Johana Gutiérrez MD at [facility] MAIN OR Social History Tobacco Use [...] risks discussed with patient. Plan discussed with PORCELAIN BUILDUP ASSISTANT and attending. Anesthesia Screening documented in this encounter Plan of Treatment Upcoming Encounters Date Type Department Care Team (Late st Contact Info) Description 01/20/2024 10:40 AM EST Office Visit Cardiology at [address] [address] Chrissy Zepeda APRN [facility] [place] [address] Scheduled Procedures Name Priority Associated Diagnoses Date/Ti [...] EDT documented in this encounter Care Teams Pharmacy District Manager Relationship Specialty Start Date End Date Tami Olivia [address] [place] [address] PCP - General Family Medicine 12/30/20 documented as of this encounter
--- OUTSIDE RECORDS SUMMARY | 2023-12-31 22:45 | XMS_ITS | Encounter Summary ---
Author Organization [facility] [place] [address] Care Team Providers Care Field Gauger Name Role Phone Tami Olivia Primary Care Provider [phone] Encounter Details Date Type Department Care Team (Late st Contact Info) Description 12/11/2023 External [place] [address] Social History Tobacco Use Types [...] any time in the past 12 m [facility], were you homeless or living in a skilled nursing (including now)? No 12/13/2023 IPV Inpatient Questions [...] AM EST Office Visit Cardiology at [address] [address] Chrissy Zepeda APRN [facility] [place] [address] Scheduled Procedures Name Priority Associated Diagnoses Date/Ti [...] on filedocumented in this encounter Care Teams Field Gauger Relationship Specialty Start Date End Date Tami Olivia [address] [place] [address] PCP - General Family Medicine 12/30/20 documented as of this encounter
--- OUTSIDE RECORDS SUMMARY | 2023-12-31 22:45 | XMS_ITS | Encounter Summary ---
Author Organization [facility] Address [facility] [place] [address] Care Team Providers Care Fire Protection Fabricator Name Role Phone Tami Olivia Primary Care Provider [phone] Encounter Details Date Type Department Care Team (Late st Contact Info) Description 12/12/2022 Orders Only Cardiology at [address] [address] Sekou Canales MD [facility] [place] [address] Typical atrial flutter; Nonischemic cardiomyopathy [...] AM EST Office Visit Cardiology at [address] [phone] Chrissy Zepeda APRN [facility] [place] [address] Scheduled Procedures Name Priority Associated Diagnoses Date/Ti me CARDIOVERSION-ELECTIVE (WRVU 2) atrial flutter ELECTROPHYSIOLOGY PROCEDURE Persistent atrial fibrillation CARDIOVERSION-ELECTIVE (WRVU 2) persistent atrial fibrillation TRANSESOPHAGEAL ECHOCARDIOGR AM (WRVU 2.3) persistent atrial fibrillation documented as of this encounter Visit Diagnoses Diagnosis Typical atrial flutter Atrial flutter Nonischemic cardiomyopathy Other primary cardiomyopathies documented in this encounter Care Teams Fire Protection Fabricator Relationship Specialty Start Date End Date Tami Olivia [address] [place] [address] PCP - General Family Medicine 12/30/20 documented as of this encounter
--- OUTSIDE RECORDS SUMMARY | 2023-12-31 22:45 | XMS_ITS | Encounter Summary ---
Author Organization [facility] [place] [address] Care Team Providers Care Operations Dispatcher Name Role Phone Tami Olivia Primary Care Provider [phone] Reason for Visit * Auth/Cert (Routine) Specialty Diagnoses / Procedures Referred By Bert t Referred To Contact Diagnoses Atrial flutter Atrial fibrillation Procedures EMERGENCY IPI Tiera Goldsmith MD [facility] [place] [address] [facility] Referral ID Status Reason Start Date Expiration Date Visits Re quested Visits Authorized [id number] 1 1 Encounter Details Date Type Department Care Team (Late st Contact Info) Description 12/13/2023 10:45 AM EDT - 12/13/2023 11:45 AM EDT Surgery Main Operating Room [facility] [address] Srini Null MD [facility] [place] [address] TRANSESOPHAGEAL ECHOCARDIOGRAM (WRVU 2.3) Social History Tobacco [...] [facility] the [facility] were you homeless or living in a alf (including now)? No 12/13/2023 DH IPV Inpatient [...] Rajan Faulkner Patient Age: 72 y.o. Language: Upper Sorbian Admit date: 12/12/2023 Discharge date and time: [...] Provider Contact Information: Layo Starr MD Pager #[phone] Discharge Diagnoses (Hospital Problems) and Secondary Diagnoses [...] thrombus and hence cardioversion was not performed. [id number]:3,, started on Lovenox 1 mg/kg body weight [...] Instructions Hospital course You were admitted to [facility] for elevated heart rate [...] of 8AM-5PM please call the Cardiology Clinic [phone] to speak with a nurse. All other hours please call the Hospital Band Instrument Repairer [phone] and ask to speak to the cardiovascular hospitalist on-call. For any emergent questions, please call 911 or visit your nearest emergency department/urgent care center Return to work: One week Driving: No driving for 48 hours after cath Follow up Appointments: Doctor Where Phone # Date Time PCP Tami Olivia [address] [place] [address] Dec, , 11.30 PM Heat Reader [facility] Cardiology Clinic [phone] Jan 19Saturday 10.40 AM Diet-2 g salt, 2 L/day fluid restriction Activity-as tolerated. General Instructions None Future Appointments and Orders Future Appointments and Orders Future Appointments Provider Department Dept Phone 01/20/2024 10:40 AM Chrissy Zepeda APRN Cardiology at [facility] Arrive at: Rn Enterostomal Area [phone] Future Orders Complete By Expires Digoxin level [...] Instructions: Questions: Where will study be performed?: [facility] Clinics Does the patient have difficulty swallowing?: No Does the patient have esophageal problems?: No Is a 3D HARSH needed? (If Yes, provide indication in comment section): Referral to Cardiac Rehab [TCC201 Custom] As directed Process Instructions: If no progress note charted, please enter Clinical details in comments. Scheduling Instructions: Questions: My question or request is: cardiomyopathy Discharge References/Attachments None More than 30 minutes were spent on this discharge including documentation, [id number] time with patient, patient education, order detailer, and coordination pharmacy, follow-up and other patient care. Layo Starr MD 12/16/2023 1:42 PM documented in this encounter Discharge Instructions * Patient Instructions* Layo Starr MD - 12/15/2023 4:55 PM EDT Hospital course You were admitted to [facility] for elevated heart rate [...] of 8AM-5PM please call the Cardiology Clinic [phone] to speak with a nurse. All other hours please call the Hospital Band Instrument Repairer [phone] and ask to speak to the cardiovascular hospitalist on-call. For any emergent questions, please call 911 or visit your nearest emergency department/urgent care center Return to work: One week Driving: No driving for 48 hours after cath Follow up Appointments: Doctor Where Phone # Date Time PCP Tami Olivia [address] [place] [address] Dec, 11.30 PM Heat Reader [facility] Cardiology 4A Clinic [phone] Jan 19Saturday 10.40 AM Diet-2 g salt, [...] 2:23 PM EDT [facility]ITAL[facility] 2 - [facility] DAILY PROGRESS NOTE Page [phone] to reach a provider 01/10 Admit Date: [...] thrombus and hence cardioversion was not performed. [id number]:3,, started on Lovenox 1 mg/kg body weight [...] Score: 23 PT: OT: PCP Tami Olivia [phone] Disposition-discharge tomorrow. Layo Starr MD 12/15/2023 2:23 [...] is requesting. A new copy of the [place] Advance Directive was left for review and in the event that the patient wants to make a lot of changes to the existing form. Patient and significant other educated on the purpose of the Advance Directive and process to change or update it. Tita Ford [facility] Office of Case Management-Makeup Artist Clinical Makeup Artist ED CDU SDP Pager [phone] * Layo Starr MD - 12/14/2023 11:10 AM EDT [facility] - [facility] DA[facility] PROGRESS NOTE Page [phone] to reach a provider 01/10 Admit Date: [...] thrombus and hence cardioversion was not performed. [id number]:3,, started on Lovenox 1 mg/kg body weight [...] Score: 23 PT: OT: PCP Tami Olivia [phone] Disposition-likely discharge in the next 24 to [...] 11:39 AM EDT [facility] - [facility] DAILY PROGRESS NOTE Page [phone] to reach a provider 01/10 Admit Date: 12/12/2023 Encounter Date December 13, 2023 Anticipated Discharge Date: 12/15/2023 Hospital Day: 1 Active Hospital Problems Diagnosis Atrial flutter Resolved Hospital Problems No resolved problems to display. 24 Hour Events/Subjective: No acute events overnight. Patient tells me that he was diagnosed with atrial fibrillation about 3 years ago, did see his insole doubler about 6 months ago. He is status [...] 12/12/2023 10:47 PM) Result Value WORKSTATION ID [id number] Impression Improved aeration both lungs with decreased [...] signed by: Maryann Magallanes MD, [facility] ([phone]), at 12/13/2023 2:25 AM 2D echocardiogram, 12/13/2023, [...] Will also consult general cardiology further recommendations. [id number]:3, will hold off on Xarelto, started on [...] Score: 20 PT: OT: PCP Tami Olivia [phone] Layo Starr MD 12/13/2023 11:58 AM Addendum: [...] from the original note were not included. [facility] Pre-Procedure H&P and Pre-Sedation Assessment Rajan [...] When patient presented to the ED at [facility] in [place], [place] he was found to be in acute respiratory failure d/t acutely decompenasated CHF. He was tachycardic in the 150's and tachypneic and hypoxicw/ SPO2 77%. He was treated w/ BIPAP, iv lasix and bolused w/ iv diltiazem and put on diltiazem drip. [facility] cardiology was consulted for transfer and patient was accepted for transfer to Dr. Gray for HARSH and cardioversion but d/t lack of bed availability, patient was hospitalized overnight at [facility]. He was begun on heparin drip and his cardizem dripped was weaned off and patient was put on lopressor 50 mg po q6h. He has now been transferred to [facility] cardiology for HARSH and DCC. Past Medical [...] IR Thoracentesis Left 11/08/2021 Ramírez Ramirez MD [facility] INTERVENTIONL RAD PRO BRONCHOSCOPY, DIAGNOSTIC N/A 03/29/2021 BRONCHOSCOPY, DIAGNOSTIC (WRVU 2.78) performed by Gilmer Gutiérrez MD at [facility] MAIN OR PRO BRONCHOSCOPY, DIAGNOSTIC N/A 02/08/2022 BRONCHOSCOPY, DIAGNOSTIC (WRVU 2.78) performed by Gilmer Gutiérrez MD at [facility] MAIN OR PRO BRONCHOSCOPY, DIAGNOSTIC N/A 05/18/2022 BRONCHOSCOPY, DIAGNOSTIC (WRVU 2.53) performed by Gilmer Gutiérrez MD at [facility] MAIN OR PRO CARDIOVERSION ELECTIVE ARRHYTHMIA EXTERNAL N/A 11/08/2022 CARDIOVERSION-ELECTIVE (WRVU 2) performed by Sekou Canales MD at [facility] MAIN OR PRO DECORTICATION, PULMONARY, TOTAL Left 05/18/2022 @THORACOTOMY,DECORTICATION, PULMONARY, TOTAL (WRVU 26.65) performed by Gilmer Gutiérrez MD [facility] MAIN OR PRO INJECTION ANES AGENT &/ STEROID INTERCOSTAL NERVE SINGLE LEVEL Left 03/29/2021 NERVE BLOCK, INTERCOSTAL NERVE (WRVU 1.18) performed by Gilmer Gutiérrez MD at [facility] MAIN OR PRO RECONSTRUCT INJURED CHEST Left 05/18/2022 @MAJOR RECONSTRUCTION, CHEST WALL (WRVU 22.51) performed by Gilmer Gutiérrez MD at [facility] MAIN OR PRO THORACOSCOPY SURG LOBECTOMY Left 03/29/2021 @THORACOSCOPY,SURGICAL,W\LOBECTOMY,TOTAL OR SEGMENTAL (WRVU 24.64) performed by Johana Gutiérrez MD at [facility] MAIN OR PRO THORACOSCOPY WITH BIOPSY OF PLEURA Left 02/08/2022 THORACOSCOPY; WITH BIOPSY(IES) OF PLEURA (WRVU 4.58) performed [facility] PRO THORACOSCOPY WITH MEDIASTINAL AND REGIONAL LYMPHADENECTOMY 03/29/2021 @THORACOSCOPY, SURG; W/MEDIASTINAL& REGIONAL LYMPHADENECTOMY (WRVU 4.12) performed by Gilmer Gutiérrez MD at [facility] MAIN OR PRO THORACOSCOPY WITH WEDGE RESECTION AND ANATOMIC LUNG RESECTN Left 03/29/2021 @THORACOSCOPY, SURG; W/DX WEDGE RESC W/ANATOMIC LUNG RESC (WRVU 3) performed by Johana Gutiérrez MD at [facility] MAIN OR Significant Family History: Family History [...] cutting his medication costs. RNCM spoke with [facility], original quote was over $600, but they were able to bring costs down to $330. Pt was notified and he states he isable to afford this cost. 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 Patient is insured [...] for Consult: Financial resources Social Work Response: SOLE STITCHER HAND met with patient to provide support and follow up on social work consult.Patient shares that two of his medications - his blood thinner and one of his inhalers - are very expensive. Patient is interested in learning about assistance programs as the one inhaler alone costshim $800/month. Patient shares he goes to [facility] in [place] for the blood thinner and the inhaler because they are a bit cheaper. Per patient, he gets his other medications at [facility] in [place]. SOLE STITCHER HAND spoke with the Medication Assistance team and learned about two assistance programs for pt's inhalers, one for Breo and one for Spiriva. SOLE STITCHER HAND provided patient with applications for both programs and explained that his PCP would have to help him complete them. SOLE STITCHER HAND also informed patient that his doctor would talk with him about options for his blood thinner. Patient appreciative of information and assistance and denies other social work needs at this time. Follow Up Needed: None at this time. Social work will remain available for support as needed. MIA Harley, [facility] Care Management, [phone] * Initial Assessments - [...] Patient states he has an AD at [facility] listing his SO Melania Leonard ([phone]) as decision maker. Patient also has a daughter, Karla Brown ([phone]), but says she is not listed on new AD's. Any patient receiving care in [place] must abide by [place] law. The hierarchy [...] (i) The agent with financial power of united states attorney or a conservator appointed in accordance [...] homeless or living in a alf (including now)?: No Resource / Environmental Concerns: [...] of his home) Home Address confirmed as: [address] [place] [phone] Social & Family Supports: Extended Emergency Contact [...] most expensive medications at [facility] in [place] and pays mon because it is cheaper. Health/Prescription Coverage: Primary Insurance: [facility] MANAGED MEDICARE Payor: AARP MANAGED MEDICARE / Plan: [facility] HMO MANAGED MEDICARE COMPLETE / Product Type: *No Producttype* / Secondary Insurance: N/A ; Prescription Coverage: Yes Preferred Pharmacy: [facility] [address] [address] [place] Status: Patient is a : No Primary Care Provider confirmed: Tami Olivia [phone] Patient/Caregiver Goals of Treatment: Return home with SO Potential Needs for Transition of Care: unable to assess Agency Referrals: Pending hospital course Transportation: no concerns Transportation Anticipated: family or friend will provide Concerns to be Addressed: discharge planning Assessment: Patient is admitted to Cardiology service for atrial flutter. Pt is a 72 yo male who lives in a one level home in [place], [place]. Per patient, he plans to stay with his SO Melania Leonard at discharge. Patient reports that two of his medications are very expensive. One is an inhaler and costs about $800/month, and the other is a blood thinner. Patient states he gets most of his medications at [facility] in [place], but goes to [facility] in [place] for the inhaler and blood thinner. Patient shares he stopped drinking several years ago. Per patient he hasn't had alcohol in about three years and feels much more engaged with life. Patient also shares that he worked for [employer] for 38 years before retiring. Plan going forward: SOLE STITCHER HAND will look into medication assistance programs for pt. SOLE STITCHER HAND will also make referral for AD. Care Management team will continue to follow and assist with discharge planing and coordination of care as indicated. MIA Harley, [facility] Care Management, [phone] * Brief Op Note - Ronni Morales MD - 12/13/2023 11:29 AM EDT Preliminary HARSH Procedure Note: Patient Name: Rajan Faulkner : [id number] MR#: [id number] Case Date: 12/13/2023 Band Instrument Repairer: Surgeons and Role: * Srini Null MD [...] AM EST Office Visit Cardiology at [address] [phone] Chrissy Zepeda APRN [facility] [place] [address] Scheduled Orders Name Type Priority Associated Diagnoses [...] Typical atrial flutter Cardioversion Elective Arrhythmia External (23356) 12/13/2023 10:38 AM EDT typical aflutter HARSH complete wo contrast (20413) 12/13/2023 10:38 AM EDT typical aflutter ECHO [...] Digoxin level (12/16/2023 7:43 AM EDT) Pathologist [facility] Digoxin 1.0 0.8 - 2.0 mcg/L 12/16/2023 8:54 AM EDT [facility] Blood VENOUS BLOOD SPECIMEN / Unknown IP Care Team Draw / Unknown 12/16/2023 7:43 AM EDT 12/16/2023 8:06 AM EDT Layo Starr MD CHEMISTRY ORDERABLES [facility] [place] [address] * Magnesium (12/16/2023 2:16 AM EDT) Pathologist [facility] Magnesium 0.92 0.69 - 1.07 mMol/L 12/16/2023 3:05 AM EDT [facility] Blood VENOUS BLOOD SPECIMEN / Unknown IP Care Team Draw / Unknown 12/16/2023 2:16 AM EDT 12/16/2023 2:35 AM EDT Layo Starr MD CHEMISTRY ORDERABLES [facility] [place] [address] * (ABNORMAL) CBC (with Diff) (12/16/2023 2:16 AM EDT) Pathologist [facility] White Blood Cell 9.96(H) 4.00 - 9.50 x10(3)/mc L 12/16/2023 2:42 AM EDT [facility] Red Blood Cell 4.66 4.58 - 5.54 x10(6)/mc L 12/16/2023 2:42 AM [facility] Hemoglobin 14.7 13.7 - 16.5 g/dL 12/16/2023 2:42 AM [facility] Hematocrit 43.2 40.5 - 48.5 % 12/16/2023 2:42 AM [facility] Mean Cell Volume 92.7 82.9 - 93.1 fL 12/16/2023 2:42 AM [facility] Mean Cell Hemoglobin 31.5 27.5 - 32.1 pg 12/16/2023 2:42 AM [facility] Mean Cell Hemoglobin Concentration 34.0 32.0 - 35.7 g/dL 12/16/2023 2:42 AM [facility] Platelet 241 145 - 357 x10(3)/mc L 12/16/2023 2:42 AM [facility] Mean Platelet Volume 9.7 7.6 - 12.9 fL 12/16/2023 2:42 AM [facility] RDW Standard Deviation 46.5(H) 36.0 - 45.0 fL 12/16/2023 2:42 AM [facility] RDW coefficient of variation 13.8 11.4 - 13.8 % 12/16/2023 2:42 AM [facility] NRBC% auto 0.0 % 12/16/2023 2:42 AM [facility] NRBC Absolute <0.01 <0.01 x10(3)/mc L 12/16/2023 2:42 AM [facility] Neutrophil % 68.8 % 12/16/2023 2:42 AM [facility] Neutrophil Absolute (ANC) - Automated 6.85(H) 1.70 - 6.10 x10(3)/mc L 12/16/2023 2:42 AM [facility] Lymph % 18.0 % 12/16/2023 2:42 AM EDT [facility] Lymph Absolute 1.79 0.90 - 3.20 x10(3)/mc L 12/16/2023 2:42 AM EDT [facility] Monocyte % 11.4 % 12/16/2023 2:42 AM EDT [facility] Monocyte Absolute 1.14(H) 0.30 - 0.90 x10(3)/mc L 12/16/2023 2:42 AM EDT [facility] Eos % 1.0 % 12/16/2023 2:42 AM EDT [facility] Eos Absolute 0.10 0.00 - 0.40 x10(3)/mc L 12/16/2023 2:42 AM EDT [facility] Basophil % 0.6 % 12/16/2023 2:42 AM EDT [facility] Baso Absolute 0.06 0.00 - 0.10 x10(3)/mc L 12/16/2023 2:42 AM EDT [facility] Immature Gran % 0.2 % 2:42 AM EDT [facility] Immature Gran Absolute <0.04 0.00 - 0.04 x10(3)/mc L 12/16/2023 2:42 AM EDT [facility] Blood VENOUS BLOOD SPECIMEN / Unknown IP Care Team Draw / Unknown 12/16/2023 2:16 AM EDT 12/16/2023 2:35 AM EDT Layo Starr MD HEMATOLOGY ORDERABLE S [facility] [place] [address] * (ABNORMAL) Basic Metabolic Panel (12/16/2023 2:16 AM EDT) Glucose 101 65 - 199 mg/dL 12/16/2023 3:05 AM EDT [facility] Comment:Glucose Concentratio n >=200 mg/dL plus symptoms is consistent with Diabetes Mellitus. Blood Urea Nitrogen 25(H) 10 - 20 mg/dL 12/16/2023 3:05 AM [facility] Creatinine 1.18 0.80 - 1.50 mg/dL 12/16/2023 3:05 AM [facility] Sodium 137 135 - 145 mMol/L 12/16/2023 3:05 AM [facility] Potassium 3.8 3.5 - 5.0 mMol/L 12/16/2023 3:05 AM [facility] Chloride 100 98 - 107 mMol/L 12/16/2023 3:05 AM [facility] Carbon Dioxide 25 22 - 31 mMol/L 12/16/2023 3:05 AM [facility] Anion Gap 12 5 - 15 mMol/L 12/16/2023 3:05 AM [facility] Calcium 9.3 8.5 - 10.5 mg/dL 12/16/2023 3:05 AM [facility] Est Glomerular Filtration Rate - Male 65 mL/min/1. 73 m?? 12/16/2023 3:05 AM [facility] Comment: This patient's estimated GFR [...] AM EDT Layo Starr MD CHEMISTRY ORDERABLES [facility] [place] [address] * Magnesium (12/15/2023 2:31 AM EDT) Pathologist [facility] Magnesium 1.03 0.69 - 1.07 mMol/L 12/15/2023 3:20 AM EDT [facility] Blood VENOUS BLOOD SPECIMEN / Unknown IP Care Team Draw / Unknown 12/15/2023 2:31 AM EDT 12/15/2023 2:47 AM EDT Layo Starr MD CHEMISTRY ORDERABLES [facility] [place] [address] * (ABNORMAL) CBC (with Diff) (12/15/2023 2:31 AM EDT) [facility] White Blood Cell 9.33 4.00 - 9.50 x10(3)/mc L 12/15/2023 2:56 AM EDT [facility] Red Blood Cell 4.54(L) 4.58 - 5.54 x10(6)/mc L 12/15/2023 2:56 AM EDT [facility] Hemoglobin 14.2 13.7 - 16.5 g/dL 12/15/2023 2:56 AM EDT [facility] Hematocrit 42.5 40.5 - 48.5 % 12/15/2023 2:56 AM EDT [facility] Mean Cell Volume 93.6(H) 82.9 - 93.1 fL 12/15/2023 2:56 AM EDT [facility] Mean Cell Hemoglobin 31.3 27.5 - 32.1 pg 12/15/2023 2:56 AM EDT [facility] Mean Cell Hemoglobin Concentration 33.4 32.0 - 35.7 g/dL 12/15/2023 2:56 AM EDT [facility] Platelet 223 145 - 357 x10(3)/mc L 12/15/2023 2:56 AM [facility] Mean Platelet Volume 9.8 7.6 - 12.9 fL 12/15/2023 2:56 AM [facility] RDW Standard Deviation 48.0(H) 36.0 - 45.0 fL 12/15/2023 2:56 AM [facility] RDW coefficient of variation 13.9(H) 11.4 - 13.8 % 12/15/2023 2:56 AM [facility] NRBC% auto 0.0 % 12/15/2023 2:56 AM [facility] NRBC Absolute <0.01 <0.01 x10(3)/mc L 12/15/2023 2:56 AM [facility] Neutrophil % 70.1 % 12/15/2023 2:56 AM [facility] Neutrophil Absolute (ANC) - Automated 6.54(H) 1.70 - 6.10 x10(3)/mc L 12/15/2023 2:56 AM [facility] Lymph % 14.6 % 12/15/2023 2:56 AM [facility] Lymph Absolute 1.36 0.90 - 3.20 x10(3)/mc L 12/15/2023 2:56 AM [facility] Monocyte % 13.5 % 12/15/2023 2:56 AM [facility] Monocyte Absolute 1.26(H) 0.30 - 0.90 x10(3)/mc L 12/15/2023 2:56 AM [facility] Eos % 1.1 % 12/15/2023 2:56 AM [facility] Eos Absolute 0.10 0.00 - 0.40 x10(3)/mc L 12/15/2023 2:56 AM [facility] Basophil % 0.5 % 12/15/2023 2:56 AM [facility] Baso Absolute 0.05 0.00 - 0.10 x10(3)/mc L 12/15/2023 2:56 AM EDT [facility] Immature Gran % 0.2 % 2:56 AM EDT [facility] Immature Gran Absolute <0.04 0.00 - 0.04 x10(3)/mc L 12/15/2023 2:56 AM EDT [facility] Blood VENOUS BLOOD SPECIMEN / Unknown IP Care Team Draw / Unknown 12/15/2023 2:31 AM EDT 12/15/2023 2:47 AM EDT Layo Starr MD HEMATOLOGY ORDERABLE S [facility] [place] [address] * (ABNORMAL) Basic Metabolic Panel (12/15/2023 2:31 AM EDT) Glucose 109 65 - 199 mg/dL 12/15/2023 3:20 AM [facility] Comment:Glucose Concentratio n >=200 mg/dL plus symptoms is consistent with Diabetes Mellitus. Blood Urea Nitrogen 27(H) 10 - 20 mg/dL 12/15/2023 3:20 AM [facility] Creatinine 1.16 0.80 - 1.50 mg/dL 12/15/2023 3:20 AM [facility] Sodium 138 135 - 145 mMol/L 12/15/2023 3:20 AM [facility] Potassium 3.7 3.5 - 5.0 mMol/L 12/15/2023 3:20 AM [facility] Chloride 100 98 - 107 mMol/L 12/15/2023 3:20 AM [facility] Carbon Dioxide 27 22 - 31 mMol/L 12/15/2023 3:20 AM [facility] Anion Gap 11 5 - 15 mMol/L 12/15/2023 3:20 AM [facility] Calcium 9.2 8.5 - 10.5 mg/dL 12/15/2023 3:20 AM EDT [facility] Est Glomerular Filtration Rate - Male 67 mL/min/1. 73 m?? 12/15/2023 3:20 AM EDT [facility] Comment: This patient's estimated GFR [...] AM EDT Layo Starr MD CHEMISTRY ORDERABLES [facility] [place] [address] * Digoxin level (12/15/2023 2:31 AM EDT) Digoxin 1.0 0.8 - 2.0 mcg/L 12/15/2023 3:16 AM EDT [facility] Blood VENOUS BLOOD SPECIMEN / Unknown IP Care Team Draw / Unknown 12/15/2023 2:31 AM EDT 12/15/2023 2:47 AM EDT Layo Starr MD CHEMISTRY ORDERABLES [facility] [place] [address] * Digoxin level (12/14/2023 8:08 AM EDT) Digoxin 0.9 0.8 - 2.0 mcg/L 12/14/2023 9:05 AM EDT [facility] Blood VENOUS BLOOD SPECIMEN / Unknown IP Care Team Draw / Unknown 12/14/2023 8:08 AM EDT 12/14/2023 8:25 AM EDT Layo Starr MD CHEMISTRY ORDERABLES Performing Organization Address City/[facility]/ZIP Co de Phone Number [facility] [place] [address] * Magnesium (12/14/2023 3:02 AM EDT) Pathologist [facility] Magnesium 0.74 0.69 - 1.07 mMol/L 12/14/2023 3:52 AM EDT [facility] Blood VENOUS BLOOD SPECIMEN / Unknown IP Care Team Draw / Unknown 12/14/2023 3:02 AM EDT 12/14/2023 3:22 AM EDT Layo Starr MD CHEMISTRY ORDERABLES [facility] [place] [address] * (ABNORMAL) CBC (with Diff) (12/14/2023 3:02 AM EDT) Pathologist [facility] White Blood Cell 12.68(H) 4.00 - 9.50 x10(3)/mc L 12/14/2023 3:31 AM EDT [facility] Red Blood Cell 4.49(L) 4.58 - 5.54 x10(6)/mc L 12/14/2023 3:31 AM EDT [facility] Hemoglobin 13.9 13.7 - 16.5 g/dL 12/14/2023 3:31 AM EDT [facility] Hematocrit 42.4 40.5 - 48.5 % 12/14/2023 3:31 AM EDT [facility] Mean Cell Volume 94.4(H) 82.9 - 93.1 fL 12/14/2023 3:31 AM EDT [facility] Mean Cell Hemoglobin 31.0 27.5 - 32.1 pg 12/14/2023 3:31 AM [facility] Mean Cell Hemoglobin Concentration 32.8 32.0 - 35.7 g/dL 12/14/2023 3:31 AM [facility] Platelet 214 145 - 357 x10(3)/mc L 12/14/2023 3:31 AM [facility] Mean Platelet Volume 9.9 7.6 - 12.9 fL 12/14/2023 3:31 AM [facility] RDW Standard Deviation 48.6(H) 36.0 - 45.0 fL 12/14/2023 3:31 AM [facility] RDW coefficient of variation 13.9(H) 11.4 - 13.8 % 12/14/2023 3:31 AM [facility] NRBC% auto 0.0 % 12/14/2023 3:31 AM [facility] NRBC Absolute <0.01 <0.01 x10(3)/mc L 12/14/2023 3:31 AM [facility] Neutrophil % 79.3 % 12/14/2023 3:31 AM [facility] Neutrophil Absolute (ANC) - Automated 10.06(H) 1.70 - 6.10 x10(3)/mc L 12/14/2023 3:31 AM [facility] Lymph % 8.5 % 12/14/2023 3:31 AM [facility] Lymph Absolute 1.08 0.90 - 3.20 x10(3)/mc L 12/14/2023 3:31 AM [facility] Monocyte % 11.3 % 12/14/2023 3:31 AM [facility] Monocyte Absolute 1.43(H) 0.30 - 0.90 x10(3)/mc L 12/14/2023 3:31 AM [facility] Eos % 0.1 % 12/14/2023 3:31 AM EDT [facility] Eos Absolute <0.04 0.00 - 0.40 x10(3)/mc L 12/14/2023 3:31 AM EDT [facility] Basophil % 0.4 % 12/14/2023 3:31 AM EDT [facility] Baso Absolute 0.05 0.00 - 0.10 x10(3)/mc L 12/14/2023 3:31 AM EDT [facility] Immature Gran % 0.4 % 3:31 AM EDT [facility] Immature Gran Absolute 0.05(H) 0.00 - 0.04 x10(3)/mc L 12/14/2023 3:31 AM EDT [facility] Blood VENOUS BLOOD SPECIMEN / Unknown IP Care Team Draw / Unknown 12/14/2023 3:02 AM EDT 12/14/2023 3:22 AM EDT Layo Starr MD HEMATOLOGY ORDERABLE S [facility] [place] [address] * (ABNORMAL) Basic Metabolic Panel (12/14/2023 3:02 AM EDT) Glucose 107 65 - 199 mg/dL 12/14/2023 3:52 AM EDT [facility] Comment:Glucose Concentratio n >=200 mg/dL plus symptoms is consistent with Diabetes Mellitus. Blood Urea Nitrogen 31(H) 10 - 20 mg/dL 12/14/2023 3:52 AM EDT [facility] Creatinine 1.33 0.80 - 1.50 mg/dL 12/14/2023 3:52 AM EDT [facility] Sodium 137 135 - 145 mMol/L 12/14/2023 3:52 AM EDT [facility] Potassium 3.2(L) 3.5 - 5.0 mMol/L 12/14/2023 3:52 AM EDT [facility] Chloride 97(L) 98 - 107 mMol/L 12/14/2023 3:52 AM EDT [facility] Carbon Dioxide 28 22 - 31 mMol/L 12/14/2023 3:52 AM EDT [facility] Anion Gap 12 5 - 15 mMol/L 12/14/2023 3:52 AM EDT [facility] Calcium 9.3 8.5 - 10.5 mg/dL 12/14/2023 3:52 AM EDT [facility] Est Glomerular Filtration Rate - Male 56 mL/min/1. 73 m?? 12/14/2023 3:52 AM EDT [facility] Comment: This patient's estimated GFR [...] AM EDT Layo Starr MD CHEMISTRY ORDERABLES [facility] [place] [address] * HARSH W LMTD SPECTRAL DOPPLER COLOR DOPPLER (12/13/2023 12:02 PM EDT) Anatomical Region Laterality Modality Cardiac Other 12/13/2023 10:1 2 AM EDT Narrative 12/13/2023 12:29 PM EDT ? Transesophageal Echocardiogram Report Name: RAJAN FAULKNER ?Study Date: 12/13/2023 10:12 AM ? Patient Location: ^[facility]^A : 1950 ? Account: [id number] Age: 72 yrs Gender: Male Ordering Physician: LAYO STARR Referring Physician: DEBORAH CHA Performed By: Ronni Morales MD Reason For Study: pre cardioversion Exam Location: [facility]. Interpretation Summary 1. There [...] RAJAN FAULKNER Study Date: 0:12 AM Patient Location:[facility]^A : 1950 Account: [id number] Age: 72 yrs Gender: Male Ordering Physician: LAYO STARR Referring Physician: DEBORAH CHA Performed By: Ronni Morales MD Reason For Study: pre cardioversion Exam Location: [facility]. Interpretation Summary 1. There [...] AM EDT Narrative 12/13/2023 9:27 AM EDT [address] [place] [address] ? Echocardiogram Report Name: RAJAN FAULKNER W ?Study Date: 12/13/2023 07:07 AMBP: 121/89 mmHg ? Patient Location: ^471^A : 1950 ? Height: 173 cm ? Account: [id number] Age: 72 yrs ? Weight: 81 kg Gender: Male ?BSA: 1.9 m2 Ordering Physician: NING BOLIVAR Referring Physician: DEBORAH CHA Performed By: CONNOR Liao Reason For Study: atrial flutter,chf Exam Location: [facility]. Interpretation Summary Left ventricle is of normal size. Wall thickness is mildly increased. The left ventricular ejection fraction is 29% by Braun's biplane. There is global hypokinesis with regional variation. The right ventricle is probably normal in size. Right ventricular systolic function is mildly decreased. There is mild to moderate mitral regurgitation. Procedure Complete-72594. Image enhancement Definity was used for left [...] Note Emre Corbett MD - 12/13/2023 [address] [place] [id number] Echocardiogram Report Name: RAJAN FAULKNER Study Date: 407:07 AMBP: 121/89 mmHg Patient Location:[facility] : 1950 Height: 173 cm Account: [id number] Age: 72 yrs Weight: 81 kg Gender: Male BSA: 1.9 m2 Ordering Physician: NING BOLIVAR Referring Physician: DEBORAH CHA Performed By: CONNOR Liao Reason For Study: atrial flutter,chf Exam Location: [facility]. Interpretation Summary Left ventricle is of normal size. Wall thickness is mildly increased. Theleft ventricular ejection fraction is 29% by Braun's biplane. There isglobal hypokinesis with regional variation. The right ventricle is probably normal in size. Right ventricularsystolic function is mildly decreased. There is mild to moderate mitral regurgitation. Procedure Complete-[id number]. Image enhancement Definity was used for left [...] 65 - 199 mg/dL 12/13/2023 8:38 AM [facility] Comment:Glucose Concentratio n >=200 mg/dL plus symptoms is consistent with Diabetes Mellitus. Blood Urea Nitrogen 25(H) 10 - 20 mg/dL 12/13/2023 8:38 AM T [facility] Creatinine 1.31 0.80 - 1.50 mg/dL 12/13/2023 8:38 AM [facility] Sodium 140 135 - 145 mMol/L 12/13/2023 8:38 AM [facility] Potassium 3.3(L) 3.5 - 5.0 mMol/L 12/13/2023 8:38 AM [facility] Chloride 99 98 - 107 mMol/L 12/13/2023 8:38 AM [facility] Carbon Dioxide 28 22 - 31 mMol/L 12/13/2023 8:38 AM EDT [facility] Anion Gap 13 5 - 15 mMol/L 12/13/2023 8:38 AM EDT [facility] Calcium 9.3 8.5 - 10.5 mg/dL 12/13/2023 8:38 AM EDT [facility] Est Glomerular Filtration Rate - Male 57 mL/min/1. 73 m?? 12/13/2023 8:38 AM EDT [facility] Comment: This patient's estimated GFR [...] AM EDT Layo Starr MD CHEMISTRY ORDERABLES [facility] [place] [address] * Lipid Panel (Reflex Direct LDL) (12/13/2023 2:22 AM EDT) [facility] Cholesterol, Total 141 mg/dL 12/13/2023 3:05 AM EDT [facility] Comment: Desirable: < 200 mg/dL Borderline High: 200 - 239 mg/dL High: > or = 240 mg/dL Triglyceride 83 mg/dL 12/13/2023 3:05 AM EDT [facility] Comment: Normal: <150 mg/dL Borderline High: 150-199 mg/dL High: 200-499 mg/dL Very High: > or =500 mg/dL HDL Cholesterol 54 mg/dL 10/04/202 4 3:05 AM [facility] Comment:Males: High Risk: <4 0 mg/dL LDL Cholesterol 71 mg/dL 3:05 AM [facility] Comment: Desirable: <100 mg/dL Above Desirable: 100-129 mg/dL Borderline High: 130-159 mg/dL High: 160-189 mg/dL Very High: > or =190 mg/dL Note: LDL calculation updated to the NIH LDL formula as of 10/13/2023 Non-HDL Cholesterol 87 mg/dL 12/13/2023 3:05 AM [facility] Comment: Desirable: <130 mg/dL Above Desirable: 130-159 mg/dL Borderline High: 160-189 mg/dL High: 190-219 mg/dL Very High: > or = 220 mg/dL Blood VENOUS BLOOD SPECIMEN / Unknown IP Care Team Draw / Unknown 12/13/2023 2:22 AM EDT 12/13/2023 2:35 AM EDT [facility] - 12/13/2023 3:05 AM EDT It [...] disease) Ning Bolivar MD CHEMISTRY OR DERABLES [facility] [place] [address] * XR Chest PA & Lateral (Generic) (12/12/2023 10:47 PM EDT) [employer] WORKSTATION ID [id number] RAD Anatomical Region Laterality Modality Chest N/A [...] signed by: Maryann Magallanes MD, [facility] ([phone]), at 12/13/2023 2:25 AM Narrative 12/13/2023 2:25 [...] have questions please contactthe health child care associate that requested your imaging first. Electronically signed by: Maryann Magallanes MD, [facility]([phone]), at 12/13/2023 2:25 AM Ning Bolivar MD IMG DX ORDER [place] * (ABNORMAL) CBC (with Diff) (12/12/2023 8:42 PM EDT) White Blood Cell 10.33(H) 4.00 - 9.50 x10(3)/mc L 12/12/2023 9:12 PM [facility] Red Blood Cell 4.78 4.58 - 5.54 x10(6)/mc L 12/12/2023 9:12 PM [facility] Hemoglobin 15.1 13.7 - 16.5 g/dL 12/12/2023 9:12 PM [facility] Hematocrit 45.4 40.5 - 48.5 % 12/12/2023 9:12 PM [facility] Mean Cell Volume 95.0(H) 82.9 - 93.1 fL 12/12/2023 9:12 PM [facility] Mean Cell Hemoglobin 31.6 27.5 - 32.1 pg 12/12/2023 9:12 PM [facility] Mean Cell Hemoglobin Concentration 33.3 32.0 - 35.7 g/dL 12/12/2023 9:12 PM [facility] Platelet 236 145 - 357 x10(3)/mc L 12/12/2023 9:12 PM [facility] Mean Platelet Volume 9.8 7.6 - 12.9 fL 12/12/2023 9:12 PM [facility] RDW Standard Deviation 50.2(H) 36.0 - 45.0 fL 12/12/2023 9:12 PM [facility] RDW coefficient of variation 14.4(H) 11.4 - 13.8 % 12/12/2023 9:12 PM [facility] NRBC% auto 0.0 % 12/12/2023 9:12 PM [facility] NRBC Absolute <0.01 <0.01 x10(3)/mc L 12/12/2023 9:12 PM [facility] Neutrophil % 76.7 % 12/12/2023 9:12 PM [facility] Neutrophil Absolute (ANC) - Automated 7.92(H) 1.70 - 6.10 x10(3)/mc L 12/12/2023 9:12 PM EDT [facility] Lymph % 11.5 % 12/12/2023 9:12 PM EDT [facility] Lymph Absolute 1.19 0.90 - 3.20 x10(3)/mc L 12/12/2023 9:12 PM EDT [facility] Monocyte % 11.2 % 12/12/2023 9:12 PM EDT [facility] Monocyte Absolute 1.16(H) 0.30 - 0.90 x10(3)/mc L 12/12/2023 9:12 PM EDT [facility] Eos % 0.0 % 12/12/2023 9:12 PM EDT [facility] Eos Absolute <0.04 0.00 - 0.40 x10(3)/mc L 12/12/2023 9:12 PM EDT [facility] Basophil % 0.4 % 12/12/2023 9:12 PM EDT [facility] Baso Absolute 0.04 0.00 - 0.10 x10(3)/mc L 12/12/2023 9:12 PM EDT [facility] Immature Gran % 0.2 % 9:12 PM EDT [facility] Immature Gran Absolute <0.04 0.00 - 0.04 x10(3)/mc L 12/12/2023 9:12 PM EDT [facility] Blood VENOUS BLOOD SPECIMEN / Unknown Venipuncture / Unknown 12/12/2023 8:42 PM EDT 12/12/2023 8:46 PM EDT Ning Bolivar MD HEMATOLOGY O RDERABLES [facility] [place] [address] * APTT (12/12/2023 8:41 PM EDT) [facility] Partial Thromboplastin Time 32 25 - 37 sec 12/12/2023 9:22 PM EDT [facility] Comment: The PTT is NOT appropriate for heparin monitoring. Use the Anti-Xa level for heparin monitoring (HEP UFH) or LMWH monitoring (HEP LMW). A PTT less than 37 seconds generally indicates adequate hemostasis. Blood VENOUS BLOOD SPECIMEN / Unknown Venipuncture / Unknown 12/12/2023 8:41 PM EDT 12/12/2023 8:46 PM EDT Ning Bolivar MD HEMATOLOGY O RDERABLES [facility] [place] [address] * (ABNORMAL) Hepatic Function Panel (12/12/2023 8:41 PM EDT) [facility] Albumin 4.5 3.2 - 5.2 g/dL 12/13/2023 2:11 AM EDT [facility] Aspartate Aminotransferase 12/13/2023 2:11 AM EDT [facility] Comment:Unable to report due to hemolysis. Alanine Aminotransferase 14 0 - 55 unit/L 12/13/2023 2:11 AM EDT [facility] Alkaline Phosphatase 71 40 - 130 unit/L 12/13/2023 2:11 AM EDT [facility] Bilirubin, Total 1.3 <=1.3 mg/dL 12/13/2023 2:11 AM EDT [facility] Bilirubin, Direct 0.4(H) 0.0 - 0.3 mg/dL 12/13/2023 2:11 AM EDT [facility] Protein, Total 8.2(H) 6.1 - 8.0 g/dL 12/13/2023 2:11 AM EDT [facility] Blood VENOUS BLOOD SPECIMEN / Unknown Venipuncture / Unknown 12/12/2023 8:41 PM EDT 12/12/2023 8:46 PM EDT Ning Bolivar MD CHEMISTRY OR DERABLES [facility] [place] [address] * (ABNORMAL) Prothrombin Time (12/12/2023 8:41 PM EDT) Prothrombin Time 13.2(H) 9.4 - 12.5 sec 12/12/2023 9:22 PM EDT [facility] International Normalization Ratio 1.2 <=4.9 12/12/2023 9:22 PM EDT [facility] Comment: An INR < 2.0 [...] MD HEMATOLOGY O RDERABLES Performing Organization Address [facility]/ZIP Co de Phone Number [facility] [place] [address] * (ABNORMAL) pro-Brain Natriuretic Peptide (12/12/2023 8:41 PM EDT) NT-proBNP 6,282(H) <=124 pg/mL 12/13/2023 1:41 AM EDT [facility] Blood VENOUS BLOOD SPECIMEN / Unknown Venipuncture / Unknown 12/12/2023 8:41 PM EDT 12/12/2023 8:46 PM EDT Ning Bolivar MD CHEMISTRY OR DERABLES [facility] [place] [address] * TSH (12/12/2023 8:41 PM EDT) Thyroid Stimulating Hormone 0.85 0.27 - 4.20 mcIU/mL 12/13/2023 1:41 AM EDT [facility] Blood VENOUS BLOOD SPECIMEN / Unknown Venipuncture / Unknown 12/12/2023 8:41 PM EDT 12/12/2023 8:46 PM EDT Ning Bolivar MD CHEMISTRY OR DERABLES [facility] [place] [address] * Phosphorus (12/12/2023 8:41 PM EDT) Phosphorus 3.6 2.5 - 4.5 mg/dL 12/13/2023 1:43 AM EDT [facility] Blood VENOUS BLOOD SPECIMEN / Unknown Venipuncture / Unknown 12/12/2023 8:41 PM EDT 12/12/2023 8:46 PM EDT Ning Bolivar MD CHEMISTRY OR DERABLES Performing Organization Address City/[facility]/ZIP Co de Phone Number [facility] [place] [address] * Magnesium (12/12/2023 8:41 PM EDT) Magnesium 0.86 0.69 - 1.07 mMol/L 12/13/2023 1:43 AM EDT [facility] Blood VENOUS BLOOD SPECIMEN / Unknown Venipuncture / Unknown 12/12/2023 8:41 PM EDT 12/12/2023 8:46 PM EDT Ning Bolivar MD CHEMISTRY OR DERABLES [facility] [place] [address] * (ABNORMAL) Basic Metabolic Panel (12/12/2023 8:41 PM EDT) Glucose 114 65 - 199 mg/dL 12/13/2023 1:55 AM [facility] Comment:Glucose Concentratio n >=200 mg/dL plus symptoms is consistent with Diabetes Mellitus. Blood Urea Nitrogen 21(H) 10 - 20 mg/dL 12/13/2023 1:55 AM [facility] Creatinine 1.28 0.80 - 1.50 mg/dL 12/13/2023 1:55 AM [facility] Sodium 139 135 - 145 mMol/L 12/13/2023 1:55 AM [facility] Potassium 3.5 3.5 - 5.0 mMol/L 12/13/2023 1:55 AM [facility] Chloride 96(L) 98 - 107 mMol/L 12/13/2023 1:55 AM [facility] Carbon Dioxide 20(L) 22 - 31 mMol/L 12/13/2023 1:55 AM [facility] Anion Gap 23(H) 5 - 15 mMol/L 12/13/2023 1:55 AM [facility] Calcium 9.9 8.5 - 10.5 mg/dL 12/13/2023 1:55 AM [facility] Est Glomerular Filtration Rate - Male 59 mL/min/1. 73 m?? 12/13/2023 1:55 AM [facility] Comment: This patient's estimated GFR [...] EDT Ning Bolivar MD CHEMISTRY OR DERABLES [facility] [place] [address] * EKG 12 Lead (12/12/2023 6:31 PM EDT) Ventricular rate 153 BPM MUSE SYSTEM Atrial Rate 306 BPM MUSE SYSTEM QRS Duration 96 ms MUSE SYSTEM Q-T Interval 300 ms MUSE SYSTEM QTC Calculated (Bezet) 479 ms MUSE SYSTEM Calculated R [place] 100 degrees MUSE SYSTEM Calculated T [place] -112 degrees MUSE SYSTEM INTERPRETATION Atrial flutter with 2:1 A-V conduction Rightward axis Minimal voltage criteria for LVH, may be normal variant ( [place] product ) Nonspecific T wave abnormality Abnormal [...] DAILY, First dose (after last modification) on [place] 12/15/23 at 0900, Until Discontinued, Routine Given [...] DAILY, First dose (after last modification) on [facility] 12/14/23 at 0900, Until Discontinued, Routine Given [...] Routine documented in this encounter Care Teams Operations Dispatcher Relationship Specialty Start Date End Date Tami Olivia [address] [place] [address] PCP - General Family Medicine 12/30/20 documented as of this encounter
--- OUTSIDE RECORDS SUMMARY | 2023-12-31 22:45 | XMS_ITS | Encounter Summary ---
Author Organization [facility] Address [facility] [place] [address] Care Team Providers Care Splash Line Operator Name Role Phone Tami Olivia Primary Care Provider [phone] Encounter Details Date Type Department Care Team (Latest Contact Info) Description 11/08/2022 Travel Social History Tobacco Use Types Packs/Day Years Used Date Smoking Tobacco: Former Cigarettes Smokeless Tobacco: Never Comments:1 ppd for the past year Alcohol Use Standard Drinks/Week Comments Not Currently 0 (1 standard drink = 0.6 oz pur e alcohol) [facility] Inpatient Questions Answer Date Recorded [...] 10:40 AM EST Office Visit Cardiology at [address] [place] [address] Chrissy Zepeda APRN [facility] [place] [address] Scheduled Procedures Name Priority Associated Diagnoses Date/Ti me CARDIOVERSION-ELECTIVE (WRVU 2) atrial flutter ELECTROPHYSIOLOGY PROCEDURE Persistent atrial fibrillation CARDIOVERSION-ELECTIVE (WRVU 2) persistent atrial fibrillation TRANSESOPHAGEAL ECHOCARDIOGR AM (WRVU 2.3) persistent atrial fibrillation documented as of this encounter Visit Diagnoses Not on filedocumented in this encounter Care Teams Splash Line Operator Relationship Specialty Start Date End Date Tami Olivia [address] [place] [address] PCP - General Family Medicine 12/30/20 documented as of this encounter
--- OUTSIDE RECORDS SUMMARY | 2023-12-31 22:45 | XMS_ITS | Encounter Summary ---
Author Organization [facility] [place] [address] Care Team Providers Care Mine Captain Name Role Phone Tami Olivia Primary Care Provider [phone] Encounter Details Date Type Department Care Team (Late st Contact Info) Description 08/17/2022 Telephone Pulmonology at [facility] [place] [phone] Annabella Gustafson RT Social History Tobacco Use [...] received a referral for Pulmonary Rehabilitation at [facility]. I inquired about his familiarity with Pulmonary [...] AM EST Office Visit Cardiology at [address] [address] Chrissy Zepeda, [facility] [place] [place] [address] Scheduled Procedures Name Priority Associated Diagnoses Date/Ti me CARDIOVERSION-ELECTIVE (WRVU 2) atrial flutter ELECTROPHYSIOLOGY PROCEDURE Persistent atrial fibrillation CARDIOVERSION-ELECTIVE (WRVU 2) persistent atrial fibrillation TRANSESOPHAGEAL ECHOCARDIOGR AM (WRVU 2.3) persistent atrial fibrillation documented as of this encounter Visit Diagnoses Not on filedocumented in this encounter Care Teams Mine Captain Relationship Specialty Start Date End Date Tami Olivia [address] [place] [address] PCP - General Family Medicine 12/30/20 documented as of this encounter
--- OUTSIDE RECORDS SUMMARY | 2023-12-31 22:45 | XMS_ITS | Encounter Summary ---
Author Organization [facility] Address [facility] [place] [address] Care Team Providers Care Macaroni Press Operator Name Role Phone Tami Olivia Primary Care Provider [phone] Encounter Details Date Type Department Care Team (Late st Contact Info) Description 12/11/[address] [facility] [place] [phone] Charbel Cerrato MD [facility] [place] [address] Social History Tobacco Use Types Packs/Day Years [...] AM EST Office Visit Cardiology at [address] [phone] Chrissy Zepeda APRN [facility] [place] [address] Scheduled Procedures Name Priority Associated Diagnoses Date/Ti me CARDIOVERSION-ELECTIVE (WRVU 2) atrial flutter ELECTROPHYSIOLOGY PROCEDURE Persistent atrial fibrillation CARDIOVERSION-ELECTIVE (WRVU 2) persistent atrial fibrillation TRANSESOPHAGEAL ECHOCARDIOGR AM (WRVU 2.3) persistent atrial fibrillation documented as of this encounter Visit Diagnoses Not on filedocumented in this encounter Care Teams [employer] Relationship Specialty Start Date End Date Tami Olivia [address] [place] [address] PCP - General Family Medicine 12/30/20 documented as of this encounter
--- OUTSIDE RECORDS SUMMARY | 2023-12-31 22:45 | XMS_ITS | Encounter Summary ---
Author Organization [facility] Address [facility] [place] [address] Care Team Providers Care Business Assistant Name Role Phone SudhakarJacksonTami Primary Care Provider [phone] Reason for Referral * Diagnostic Test (Routine) - New Request Specialty Diagnoses / Procedures Referred By Bert gautam Referred To Contact Cardiology Diagnoses Persistent atrial fibrillation Procedures Transesophageal Echocardiogram (HARSH) Sekou Canales MD [facility] [place] [address] [facility] [place] [address] Referral ID Status Reason Start Date Expiration Date Visits Requested Visits Authorized [id number] New Request Specialty Service Requested 12/11/2023 12/10/2024 1 1 * Diagnostic Test (Routine) - New Request Specialty Diagnoses / Procedures Referred By Bert t Referred To Contact Cardiology Diagnoses Persistent atrial fibrillation Procedures Trans Echo (HARSH) with Cardioversion Sekou Canales MD [facility] [place] [address] [facility] [place] [address] Referral ID Status Reason Start Date Expiration Date Visits Requested Visits Authorized [id number] New Request Specialty Service Requested 12/11/2023 12/10/2024 1 1 Encounter Details Date Type Department Care Team (Late st Contact Info) Description 12/11/2023 Orders Only Cardiology at [address] [phone] Sekou Canales MD [facility] [place] [address] Persistent atrial fibrillation Social History Tobacco Use Types Packs/Day Years Used Date Smoking Tobacco: Former Cigarettes Smokeless Tobacco: Never Comments:1 ppd for the past year Alcohol Use Standard Drinks/Week Comments Not Currently 0 (1 standard drink = 0.6 oz pur e alcohol) [facility] Inpatient Questions Answer Date Recorded Does Anyone [...] 10:40 AM EST Office Visit Cardiology at [address] [address] Chrissy Zepeda APRN [facility] [place] [address] Scheduled Orders Name Type Priority Associated Diagnoses [...] fibrillation documented in this encounter Care Teams Business Assistant Relationship Specialty Start Date End Date Tami Olivia [address] [place] [address] PCP - General Family Medicine 12/30/20 documented as of this encounter
--- OUTSIDE RECORDS SUMMARY | 2023-12-31 22:45 | XMS_ITS | Encounter Summary ---
Author Organization [facility] Address [facility] [place] [address] Care Team Providers Care Independent Contractor Name Role Phone Tami Olivia Primary Care Provider [phone] Reason for Visit * Auth/Cert (Routine) Specialty Diagnoses / Procedures Referred By Bret t Referred To Contact Diagnoses Atrial flutter atrial flutter Procedures PRO CARDIOVERSION ELECTIVE ARRHYTHMIA EXTERNAL CARDIOVERSION-ELECTIVE (WRVU 2) Sekou Canales MD [facility] [place] [address] [facility] Referral ID Status Reason Start Date Expiration Date Visits Re quested Visits Authorized [id number] 1 1 Encounter Details Date Type Department Care Team (Latest Contact Info) Description 11/08/2022 11:41 AM EDT - 11/08/2022 2:06 PM EDT Hospital Encounter [place] [address] Sekou Canales MD [facility] [place] [address] Typical atrial flutter; Atrial fibrillation, unspecified type Discharge Disposition: Home Social History Tobacco Use Types Packs/Day Years Used Date Smoking Tobacco: Former Cigarettes Smokeless Tobacco: Never Comments:1 ppd for the past year Alcohol Use Standard Drinks/Week Comments Not Currently 0 (1 standard drink = 0.6 oz pur e alcohol) [facility] Inpatient Questions Answer Date Recorded [...] the adhesive pads were placed, call the grease worker contact and service clerks supervisor at . We will schedule a follow-up appointment with the grease worker here, or you will be scheduled to [...] mouth daily. 30 tablet 11 03/05/2022 12/16/2023 Spiriva Respimat 2.5 mcg/actuation Mist 01/26/2022 [...] gummies to help with smoking cessation. 12/12/2023 bupropion HCl (WELLBUTRIN ORAL) Take 150 mg by mouth daily. 12/16/2023 albuterol sulfate (Proair Digihaler) 90 mcg/actuation aero powdr breath act w/sensor 4 times daily as needed. 12/16/2023 documented as of this encounter Progress [...] 10:40 AM EST Office Visit Cardiology at [address] [place] [address] Chrissy Zepeda APRN [facility] [place] [address] Scheduled Orders Name Type Priority Associated Diagnoses [...] 6 PM EDT Cardioversion Elective Arrhythmia External ([id number]) 11/08/2022 12:38 PM EDT atrial flutter documented in this encounter Results * EKG 12 Lead (11/08/2022 1:18 PM EDT) Ventricular rate 47 BPM MUSE SYSTEM Atrial Rate 47 BPM MUSE SYSTEM P-R Interval 210 ms MUSE SYSTEM QRS Duration 104 ms MUSE SYSTEM Q-T Interval 476 ms MUSE SYSTEM QTC Calculated (Bezet) 421 ms MUSE SYSTEM Calculated P [place] 71 degrees MUSE SYSTEM Calculated R [place] 91 degrees MUSE SYSTEM Calculated T [place] 59 degrees MUSE SYSTEM INTERPRETATION Sinus bradycardia with 1st degree A-V block with Premature atrial complexes Rightward axis Borderline ECG When compared with ECG of 08-NOV-2022 11:19, Sinus rhythm has replaced Atrial flutter Vent. rate has decreased BY ??42 BPM QT has shortened Confirmed by MD Bob, Sloan ([id number]) on 11/10/2022 3:59:25 PM MUSE SYSTEM 11/08/2022 [...] CRNA) documented in this encounter Care Teams Independent Contractor Relationship Specialty Start Date End Date Tami Olivia [address] [place] [address] PCP - General Family Medicine 12/30/20 documented as of this encounter
--- OUTSIDE RECORDS SUMMARY | 2023-12-31 22:45 | XMS_ITS | Encounter Summary ---
Author Organization [place] [address] Care Team Providers Care Time Study Analyst Name Role Phone Tami Olivia Primary Care Provider [phone] Encounter Details Date Type Department Care Team [...] AM EST Office Visit Cardiology at [address] [address] Chrissy Zepeda APRN [facility] [place] [address] Scheduled Procedures Name Priority Associated Diagnoses Date/Ti me CARDIOVERSION-ELECTIVE (WRVU 2) atrial flutter ELECTROPHYSIOLOGY PROCEDURE Persistent atrial fibrillation CARDIOVERSION-ELECTIVE (WRVU 2) persistent atrial fibrillation TRANSESOPHAGEAL ECHOCARDIOGR AM (WRVU 2.3) persistent atrial fibrillation documented as of this encounter Visit Diagnoses Not on filedocumented in this encounter Care Teams Time Study Analyst Relationship Specialty Start Date End Date Tami Olivia [address] [place] [address] PCP - General Family Medicine 12/30/20 documented as of this encounter
--- OUTSIDE RECORDS SUMMARY | 2023-12-31 22:45 | XMS_ITS | Encounter Summary ---
Author Organization [facility] Address [facility] [place] [address] Care Team Providers Care Rail Car Repair Carman Name Role Phone Tami Olivia Primary Care Provider [phone] Reason for Visit * Auth/Cert (Routine) Specialty Diagnoses / Procedures Referred By Bert t Referred To Contact Diagnoses Atrial flutter atrial flutter Procedures PRO CARDIOVERSION ELECTIVE ARRHYTHMIA EXTERNAL CARDIOVERSION-ELECTIVE (WRVU 2) Sekou Canales MD [facility] [place] [address] [facility] Referral ID Status Reason Start Date Expiration Date Visits Re quested Visits Authorized [id number] 1 1 Encounter Details Date Type Department Care Team (Late st Contact Info) Description 11/08/2022 12:30 PM EDT - 11/08/2022 1:00 PM EDT [place] [address] Sekou Canales MD [facility] [place] [address] CARDIOVERSION-ELECTIVE (WRVU 2) Social History Tobacco Use Types Packs/Day Years Used Date Smoking Tobacco: Former Cigarettes Smokeless Tobacco: Never Comments:1 ppd for the past year Alcohol Use Standard Drinks/Week Comments Not Currently 0 (1 standard drink = 0.6 oz pur e alcohol) [facility] Inpatient Questions Answer Date Recorded Does Anyone [...] the adhesive pads were placed, call the child health associate program manager environmental planning at . We will schedule a follow-up appointment with the child health associate here, or you will be scheduled to [...] AM EST Office Visit Cardiology at [address] [address] Chrissy Zepeda APRN [facility] [place] [address] Scheduled Orders Name Type Priority Associated Diagnoses [...] 6 PM EDT Cardioversion Elective Arrhythmia External ([id number]) 11/08/2022 12:38 PM EDT atrial flutter documented in this encounter Results * EKG 12 Lead (11/08/2022 1:18 PM EDT) Ventricular rate 47 BPM MUSE SYSTEM Atrial Rate 47 BPM MUSE SYSTEM P-R Interval 210 ms MUSE SYSTEM QRS Duration 104 ms MUSE SYSTEM Q-T Interval 476 ms MUSE SYSTEM QTC Calculated (Bezet) 421 ms MUSE SYSTEM Calculated P [place] 71 degrees MUSE SYSTEM Calculated R [place] 91 degrees MUSE SYSTEM Calculated T [place] 59 degrees MUSE SYSTEM INTERPRETATION Sinus bradycardia with 1st degree A-V block with Premature atrial complexes Rightward axis Borderline ECG When compared with ECG of 08-NOV-2022 11:19, Sinus rhythm has replaced Atrial flutter Vent. rate has decreased BY ??42 BPM QT has shortened Confirmed by MD Bob, Sloan ([id number]) on 11/10/2022 3:59:25 PM MUSE SYSTEM 11/08/2022 [...] CRNA) documented in this encounter Care Teams Rail Car Repair Carman Relationship Specialty Start Date End Date Tami Olivia [address] [place] [address] PCP - General Family Medicine 12/30/20 documented as of this encounter
--- OUTSIDE RECORDS SUMMARY | 2023-12-31 22:45 | XMS_ITS | Encounter Summary ---
Author Organization [facility] Address [facility] [place] [address] Care Team Providers Care Practice Clinician Name Role Phone Tami Olivia Primary Care Provider [phone] Encounter Details Date Type Department Care Team (Late st Contact Info) Description 10/10/2022 Orders Only Cardiology at [address] [phone] Sekou Canales MD [facility] [place] [address] Typical atrial flutter Social History Tobacco Use [...] AM EST Office Visit Cardiology at [address] [phone] Chrissy Zepeda APRN [facility] [place] [address] Scheduled Procedures Name Priority Associated Diagnoses Date/Ti me CARDIOVERSION-ELECTIVE (WRVU 2) atrial flutter ELECTROPHYSIOLOGY PROCEDURE Persistent atrial fibrillation CARDIOVERSION-ELECTIVE (WRVU 2) persistent atrial fibrillation TRANSESOPHAGEAL ECHOCARDIOGR AM (WRVU 2.3) persistent atrial fibrillation documented as of this encounter Visit Diagnoses Diagnosis Typical atrial flutter Atrial flutter documented in this encounter Care Teams Practice Clinician Relationship Specialty Start Date End Date Tami Olivia [address] [place] [address] PCP - General Family Medicine 12/30/20 documented as of this encounter
--- OUTSIDE RECORDS SUMMARY | 2023-12-31 22:45 | XMS_ITS | Encounter Summary ---
Author Organization [facility] [place] [address] Care Team Providers Care Centrifugal Extractor Operator Name Role Phone Tami Olivia Primary Care Provider [phone] Reason for Visit * Auth/Cert (Routine) Specialty Diagnoses / Procedures Referred By Bert t Referred To Contact Diagnoses Atrial flutter atrial flutter Procedures PRO CARDIOVERSION ELECTIVE ARRHYTHMIA EXTERNAL CARDIOVERSION-ELECTIVE (WRVU 2) Sekou Canales MD [facility] [place] [address] [facility] Referral ID Status Reason Start Date Expiration Date Visits Re quested Visits Authorized [id number] 1 1 Encounter Details Date Type Department Care Team (Latest Contact Info) Description 11/08/2022 9:15 AM EDT Laboratory Appointment Lab [address] [place] [address] Encounter for monitoring amiodarone therapy; Longstanding persistent [...] 10:40 AM EST Office Visit Cardiology at [address] [place] [address] Chrissy Zepeda APRN [facility] [place] [address] Scheduled Procedures Name Priority Associated Diagnoses Date/Ti [...] EDT) Glucose 81 65 - 199 mg/dL [facility] Comment:Diabetes: >=200 mg/d L plus symptoms Blood Urea Nitrogen 25(H) 10 - 20 mg/dL [facility] Creatinine 1.58(H) 0.80 - 1.50 mg/dL [facility] Sodium 138 135 - 145 mmol/L [facility] Potassium 4.5 3.5 - 5.0 mmol/L [facility] Comment: Please note: ??Patients with WBC >100,000 may have falsely elevated Potassium levels. ??For accurate Potassium quantification in these patients send serum separator tube (gold top) for subsequent determinations. ??Contact the Clinical Chemistry Laboratory if there are any questions. Chloride 101 98 - 107 mmol/L [facility] Carbon Dioxide 25 22 - 31 mmol/L [facility] Anion Gap 12 5 - 15 mmol/L [facility] Calcium 9.6 8.5 - 10.5 mg/dL [facility] Protein, Total 7.5 6.1 - 8.0 g/dL [facility] Albumin 4.2 3.2 - 5.2 g/dL [facility] Aspartate Aminotransferase 33 0 - 39 unit/L [facility] Alanine Aminotransferase 32 0 - 55 unit/L [facility] Alkaline Phosphatase 104 40 - 130 unit/L [facility] Bilirubin, Total 0.6 0.2 - 1.3 mg/dL [facility] Est Glomerular Filtration Rate 46(L) >=60 mL/min/1. 73 m?? [facility] Comment: This patient's estimated GFR was [...] In Lab Sekou Canales MD CHEMISTRY ORDERABLES [facility] [address] * Magnesium (11/08/2022 9:17 AM EDT) Magnesium 0.90 0.69 - 1.07 mmol/L [facility] Blood 11/08/2022 9:17 AM EDT 11/08/2022 9:24 AM EDT Narrative Resulting Agency Comment Spec In Lab Sekou Canales MD CHEMISTRY ORDERABLES [facility] [place] [address] * TSH [place] (11/08/2022 9:17 AM EDT) Thyroid Stimulating Hormone 3.91 0.27 - 4.20 mcIU/mL [facility] Comment: Reference Interval (mcIU/mL): Females: ??First Trimester: 0.23-3.88 ??Second Trimester: 0.22-3.90 ??Third Trimester: 0.44-4.66 Blood 11/08/2022 9:17 AM EDT 11/08/2022 9:24 AM EDT Narrative Resulting Agency Comment Spec In Lab Sekou Canales MD CHEMISTRY ORDERABLES [facility] [place] [address] documented in this encounter Visit Diagnoses Diagnosis Encounter for monitoring amiodarone therapy Encounter for therapeutic drug monitoring Longstanding persistent atrial fibrillation documented in this encounter Care Teams Centrifugal Extractor Operator Relationship Specialty Start Date End Date Tami Olivia [address] [place] [address] PCP - General Family Medicine 12/30/20 documented as of this encounter
--- OUTSIDE RECORDS SUMMARY | 2023-12-31 22:46 | XMS_ITS | Encounter Summary ---
Author Organization [facility] Address [facility] [place] [address] Care Team Providers Care Machine Precision Etcher Name Role Phone Tami Olivia Primary Care Provider [phone] Encounter Details Date Type Department Care Team (Late st Contact Info) Description 05/18/2022 Interpretation Only Radiology [address] [place] [address] KAITLYNN Bright [phone] Unknown None Social History Tobacco Use Types [...] AM EST Office Visit Cardiology at [address] [phone] Chrissy Zepeda, WORKERS' COMPENSATION CLAIMS SUPERVISOR [facility] [place] [address] Scheduled Procedures Name Priority Associated Diagnoses Date/Ti [...] filedocumented in this encounter Care Teams Machine Precision Etcher Relationship Specialty Start Date End Date Aldair-Tami Paz [address] [place] [address] PCP - General Family Medicine 12/30/20 documented as of this encounter
--- OUTSIDE RECORDS SUMMARY | 2023-12-31 22:46 | XMS_ITS | Encounter Summary ---
Author Organization [facility] Address [facility] [place] [address] Care Team Providers Care Internet Researcher Name Role Phone Tami Olivia Primary Care Provider [phone] Encounter Details Date Type Department Care Team (Late st Contact Info) Description 06/08/2022 Telephone [place] [phone] Megan Reza RN Social History Tobacco Use [...] AM EST Office Visit Cardiology at [address] [phone] Chrissy Zepeda, [facility] [place] [address] Scheduled Procedures Name Priority Associated Diagnoses Date/Ti me CARDIOVERSION-ELECTIVE (WRVU 2) atrial flutter ELECTROPHYSIOLOGY PROCEDURE Persistent atrial fibrillation CARDIOVERSION-ELECTIVE (WRVU 2) persistent atrial fibrillation TRANSESOPHAGEAL ECHOCARDIOGR AM (WRVU 2.3) persistent atrial fibrillation documented as of this encounter Visit Diagnoses Not on filedocumented in this encounter Care Teams Internet Researcher Relationship Specialty Start Date End Date Tami Olivia [address] [place] [address] PCP - General Family Medicine 12/30/20 documented as of this encounter
--- OUTSIDE RECORDS SUMMARY | 2023-12-31 22:46 | XMS_ITS | Encounter Summary ---
Author Organization [facility] Address [facility] [place] [address] Care Team Providers Care Product Design Engineer Name Role Phone Tami Olivia Primary Care Provider [phone] Encounter Details Date Type Department Care Team (Late st Contact Info) Description 06/07/2022 Telephone [place] [phone] Megan Reza, RN Social History Tobacco Use [...] AM EST Office Visit Cardiology at [address] [address] Chrissy Zepeda APRN [facility] [place] [address] Scheduled Procedures Name Priority Associated Diagnoses Date/Ti me CARDIOVERSION-ELECTIVE (WRVU 2) atrial flutter ELECTROPHYSIOLOGY PROCEDURE Persistent atrial fibrillation CARDIOVERSION-ELECTIVE (WRVU 2) persistent atrial fibrillation TRANSESOPHAGEAL ECHOCARDIOGR AM (WRVU 2.3) persistent atrial fibrillation documented as of this encounter Visit Diagnoses Not on filedocumented in this encounter Care Teams Product Design Engineer Relationship Specialty Start Date End Date Tami Olivia [address] [place] [address] PCP - General Family Medicine 12/30/20 documented as of this encounter
--- OUTSIDE RECORDS SUMMARY | 2023-12-31 22:46 | XMS_ITS | Encounter Summary ---
Author Organization [facility] Address [facility] [place] [address] Care Team Providers Care Rotary Driller Helper Name Role Phone Tami Olivia Primary Care Provider [phone] Encounter Details Date Type Department Care Team (Latest Contact Info) Description 06/11/2022 2:15 PM EDT - 06/11/2022 11:59 PM EDT Hospital Encounter XRay at [address] [place] [address] Gilmer Gutiérrez MD [facility] [address] Status post lung surgery Discharge Disposition: Home [...] 1 tablet by mouth daily. 03/29/2022 12/16/2023 oxyCODONE (Roxicodone) 5 mg tablet Take 1 tablet by mouth every 6 hours as needed for Pain. 30 tablet 05/24/2022 11/07/2022 AMIOdarone (Paceron) 200 mg Tablet Take 1 [...] needed. 12/16/2023 documented as of this encounter Plan of Treatment Upcoming Encounters Date Type Department Care Team (Late st Contact Info) Description 01/20/2024 10:40 AM EST Office Visit Cardiology at [address] [address] Chrissy Zepeda APRN [facility] [place] [address] Scheduled Procedures Name Priority Associated Diagnoses Date/Ti [...] questions please contact the health managed care manager that requested your imaging first. [...] have questions please contactthe health managed care manager that requested your imaging first. Electronically signed by: Savanah Suazo MD, [facility] ([phone]), at 06/11/2022 4:12 PM Gilmer Gutiérrez MD IMG DX ORDERABLE S documented in this encounter Visit Diagnoses Diagnosis Status post lung surgery Other postprocedural status documented in this encounter Care Teams Rotary Driller Helper Relationship Specialty Start Date End Date Tami Olivia [address] [place] [address] PCP - General Family Medicine 12/30/20 documented as of this encounter
--- OUTSIDE RECORDS SUMMARY | 2023-12-31 22:46 | XMS_ITS | Encounter Summary ---
Author Organization [facility] Address [facility] [place] [address] Care Team Providers Care Off Premise Service Representative Name Role Phone Tami Olivia Primary Care Provider [phone] Reason for Visit * Reason Onset Date Comments Other 05/28/2022 Encounter Details Date Type Department Care Team (Late st Contact Info) Description 05/28/2022 Telephone Thoracic Surgery at [facility] [place] [phone] Megan Reza, RN Other Social History Tobacco [...] AM EST Office Visit Cardiology at [address] [phone] Chrissy Zepeda APRN [facility] [place] [address] Scheduled Procedures Name Priority Associated Diagnoses Date/Ti me CARDIOVERSION-ELECTIVE (WRVU 2) atrial flutter ELECTROPHYSIOLOGY PROCEDURE Persistent atrial fibrillation CARDIOVERSION-ELECTIVE (WRVU 2) persistent atrial fibrillation TRANSESOPHAGEAL ECHOCARDIOGR AM (WRVU 2.3) persistent atrial fibrillation documented as of this encounter Visit Diagnoses Not on filedocumented in this encounter Care Teams Off Premise Service Representative Relationship Specialty Start Date End Date Tami Olivia [address] [place] [address] PCP - General Family Medicine 12/30/20 documented as of this encounter
--- OUTSIDE RECORDS SUMMARY | 2023-12-31 22:46 | XMS_ITS | Encounter Summary ---
Author Organization [facility] Address [facility] [place] [address] Care Team Providers Care Garage Laborer Name Role Phone Tami Olivia Primary Care Provider [phone] Encounter Details Date Type Department Care Team (Late st Contact Info) Description 05/25/2022 Telephone Thoracic Surgery at [facility] [place] [phone] Megan Reza, RN Social History Tobacco Use [...] 10:40 AM EST Office Visit Cardiology at [address] [phone] Chrissy Zepeda APRN [facility] [place] [address] Scheduled Procedures Name Priority Associated Diagnoses Date/Ti me CARDIOVERSION-ELECTIVE (WRVU 2) atrial flutter ELECTROPHYSIOLOGY PROCEDURE Persistent atrial fibrillation CARDIOVERSION-ELECTIVE (WRVU 2) persistent atrial fibrillation TRANSESOPHAGEAL ECHOCARDIOGR AM (WRVU 2.3) persistent atrial fibrillation documented as of this encounter Visit Diagnoses Not on filedocumented in this encounter Care Teams Garage Laborer Relationship Specialty Start Date End Date Menapace-Tami Paz [address] [place] [address] PCP - General Family Medicine 12/30/20 documented as of this encounter
--- OUTSIDE RECORDS SUMMARY | 2023-12-31 22:46 | XMS_ITS | Encounter Summary ---
Author Organization [facility] Address [facility] [place] [address] Care Team Providers Care Edge Drummer Name Role Phone Tami Olivia Primary Care Provider [phone] Encounter Details Date Type Department Care Team (Late st Contact Info) Description 05/19/2022 11:59 PM EST Anesthesia Event Surgical Unit Level 3 [place] [address] Karri Ellis MD [facility] [place] [address] Anesthesia Record Procedure Summary Procedure [...] AM EST Office Visit Cardiology at [address] [address] Chrissy Zepeda APRN [facility] [place] [address] Scheduled Procedures Name Priority Associated Diagnoses Date/Ti me CARDIOVERSION-ELECTIVE (WRVU 2) atrial flutter ELECTROPHYSIOLOGY PROCEDURE Persistent atrial fibrillation CARDIOVERSION-ELECTIVE (WRVU 2) persistent atrial fibrillation TRANSESOPHAGEAL ECHOCARDIOGR AM (WRVU 2.3) persistent atrial fibrillation documented as of this encounter Visit Diagnoses Not on filedocumented in this encounter Care Teams Edge Drummer Relationship Specialty Start Date End Date Tami Olivia [address] [place] [address] PCP - General Family Medicine 12/30/20 documented as of this encounter
--- OUTSIDE RECORDS SUMMARY | 2023-12-31 22:46 | XMS_ITS | Encounter Summary ---
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 [place] [address] Referral ID Status Reason Start Date Expiration Date V isits Requested Visits Authorized [id number] Closed Specialty Service Requested 06/12/2022 12/12/2023 1 1 Encounter Details Date Type Department Care Team (Late st Contact Info) Description 06/11/2022 3:45 PM EDT Office [place] [address] Gilmer Gutiérrez MD [facility] [place] [address] Primary squamous cell carcinoma of [...] AM EST Office Visit Cardiology at [address] [phone] Chrissy Zepeda APRN [facility] [place] [address] Scheduled Orders Name Type Priority Associated Diagnoses [...] effusion documented in this encounter Care Teams Snowboard Designer Relationship Specialty Start Date End Date Tami Olivia [address] [place] [address] PCP - General Family Medicine 12/30/20 documented as of this encounter
--- OUTSIDE RECORDS SUMMARY | 2023-12-31 22:46 | XMS_ITS | Encounter Summary ---
Author Organization [facility] Address [facility] [place] [address] Care Team Providers Care Incident Response Engineer Name Role Phone Tami Olivia Primary Care Provider [phone] Reason for Referral * Rehabilitation (Urgent) - Closed Specialty Diagnoses / Procedures Referred By Bert gautam Referred To Contact Rehabilitation Diagnoses Status post lung surgery Camilo Stevenson PA [facility] [place] [address] [facility] [place] [address] Referral ID Status Reason Start Date Expiration Date V isits Requested Visits Authorized [id number] Closed Evaluate and Treat 05/24/2022 05/24/2023 1 1 Reason for Visit * Auth/Cert (Routine) Specialty Diagnoses / Procedures Referred By Bert gautam Referred To Contact Diagnoses 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 Procedures PRO THORACOSCOPY SURG TOT PULM DECORT @ROBOT XI THORACOSCOPY,SURG; W TOTAL DECORTICATION (WRVU 29.13) Gilmer Foster MD [facility] [address] [facility] Referral ID Status Reason Start Date Expiration Date Visits Re quested Visits Authorized [id number] 1 1 Encounter Details Date Type Department Care Team (Latest Contact Info) Description 05/18/2022 6:09 AM EST - 05/24/2022 3:00 PM EDT Hospital Encounter Surgical Unit Level 3 [place] [address] Gilmer Foster MD [facility] [place] [address] Status post lobectomy of lung; Atrial fibrillation, [...] Primary * Linda Mustafa PA - Physician Gardening Manager * Renu Donald PA - Physician Gardening Manager * Morales Armas MD - Resident Procedure: [...] Hospital Course: Rajan Marquez was admitted to [place] on 05/18/2022 via the Same Day Program. [...] who have questions please contact the health prompt care rn that requested your imaging first. Electronically signed by: Maryann Magallanes MD, [facility] ([phone]), at 05/18/2022 4:02 PM XR Chest PA & Lateral (Generic) (Exam End: 05/19/2022 11:06 AM) Impression Similar partially loculated moderate left hydropneumothorax. Thank you for letting us participate in the care of this patient. If you are a health care provider and have any questions regarding this report, please contact the number below. For patients who have questions please contact the health prompt care rn that requested your imaging first. Chest PA [...] who have questions please contact the health prompt care rn that requested your imaging first. Chest PA [...] who have questions please contact the health prompt care rn that requested your imaging first. Chest PA [...] who have questions please contact the health prompt care rn that requested your imaging first. Pending Studies and Lab Data: No current [...] a nurse in the Thoracic Clinic at [phone]. After hours or on weekends or holidays please call: [phone] and ask to speak to the Thoracic Surgeon medication aid. Exercise & Activity Level: As you recover [...] please call the thoracic surgery clinic at [phone]. Driving: No driving for 1 week or [...] the Thoracic Clinic or the Thoracic Surgeon medication aid after hours. Please take over the counter [...] Expires XR Chest PA & Lateral (Generic) [[id number] Custom] 06/07/2022 12/07/2022 Process Instructions: Scheduling Instructions: Questions: Reason for exam and clinical history: s/p left thoracotomy and decortication Clinical information / bryan questions for radiologist: eval for effusion and/or ptx Where will study be performed?: [facility] Radiology Portable exam?: Stat read required?: Date of injury if applicable: Requested Time: Referral to Pulmonary Rehab [CIC111 Custom] As directed Process Instructions: Scheduling Instructions: Questions: May include the following tests: Breathing Retraining: Diaphragmatic Techniques Provider Contact Information: Primary Care Provider: Tami Olivia [phone] Discharge References/Attachments: Discharge References/Attachments None For questions [...] a nurse in the Thoracic Clinic at [phone]. After hours or on weekends or holidays please call: [phone] and ask to speak to the Thoracic Surgeon medication aid. Exercise & Activity Level: As you recover [...] please call the thoracic surgery clinic at [phone]. Driving: No driving for 1 week or [...] the Thoracic Clinic or the Thoracic Surgeon medication aid after hours. Please take over the counter [...] 1 tablet by mouth daily. 03/29/2022 12/16/2023 docusate sodium (Colace) 100 mg capsule [...] cane for ~ 2 weeks. 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 Enjoys 4-wheeling, kayaking and [...] in reach and aware to call for medical staff physician assistance with all mobility. Education: Pt educated on ther-ex, breathing, LUE precautions and sling use- and to wait for LUE activity and ROM progression until MD follow, and to have supervision of medical staff physician or family for safetywith all mobility Assessment: Rajan Marquez was seen today for physical therapy [facility] Pt friendly and pleasant [...] and d/c planning. LUIS MIGUEL PEREZ, PT Pager:[phone] Physical Therapy Inpatient Rehabilitation Department * Radha [...] IR Thoracentesis Left 11/08/2021 Ramírez Ramirez MD [facility] INTERVENTIONL RAD ??? PRO BRONCHOSCOPY, DIAGNOSTIC N/A 03/29/2021 ?? BRONCHOSCOPY, DIAGNOSTIC (WRVU 2.78) performed by Gilmer Foster MD at [facility] MAIN OR ??? PRO BRONCHOSCOPY, DIAGNOSTIC N/A 02/08/2022 ?? BRONCHOSCOPY, DIAGNOSTIC (WRVU 2.78) performed by Gilmer Foster MD at [facility] OR ??? PRO BRONCHOSCOPY, DIAGNOSTIC N/A 05/18/2022 ?? BRONCHOSCOPY, DIAGNOSTIC (WRVU 2.53) performed by Gilmer Foster MD at [facility] OR ??? PRO DECORTICATION, PULMONARY, TOTAL Left 05/18/2022 ?? @THORACOTOMY,DECORTICATION, PULMONARY, TOTAL (WRVU 26.65) performed by Gilmer Foster MDat [facility] OR ? ? PRO INJECTION ANES AGENT &/ STEROID INTERCOSTAL NERVE SINGLE LEVEL Left 03/29/2021 ?? NERVE BLOCK, INTERCOSTAL NERVE (WRVU 1.18) performed by Gilmer Foster MD at [facility] OR ??? PRO RECONSTRUCT INJURED CHEST Left 05/18/2022 ?? @MAJOR RECONSTRUCTION, CHEST WALL (WRVU 22.51) performed by Gilmer Foster MD at [facility] OR ??? PRO THORACOSCOPY SURG LOBECTOMY Left 03/29/2021 ?? @THORACOSCOPY,SURGICAL,W\LOBECTOMY,TOTAL OR SEGMENTAL (WRVU 24.64) performed by Gilmer Foster MD at [facility] OR ??? PRO THORACOSCOPY WITH BIOPSY OF PLEURA Left 02/08/2022 ?? THORACOSCOPY; WITH BIOPSY(IES) OF PLEURA (WRVU 4.58) performed by Gilmer Foster MD at [facility] OR ??? PRO THORACOSCOPY WITH MEDIASTINAL AND REGIONAL LYMPHADENECTOMY ?? 03/29/2021 ?? @THORACOSCOPY, SURG; W/MEDIASTINAL& REGIONAL LYMPHADENECTOMY (WRVU 4.12) performed by Gilmer Foster MD at [facility] OR ??? PRO THORACOSCOPY WITH WEDGE RESECTION AND ANATOMIC LUNG RESECTN Left 03/29/2021 ?? @THORACOSCOPY, SURG; W/DX WEDGE RESC W/ANATOMIC LUNG RESC (WRVU 3) performed by Gilmer Foster MD at [facility] OR ? Social History: Patient lives [...] more times Total Minutes, Occupational Therapy: 25 (wv x2 ([phone]) Pager: [phone] GRAEME Velasco 05/24/2022 Occupational Therapy Rehabilitation Department [...] wean. We removed the epidural without complication. [facility] will sign off at this time. IOJ RN, have performed the documentation for this encounter in the presence of and acting as a scribe for Dr. Molina. [facility] Nurse: Oj Don RN Attending Physician:: [...] cane for ~ 2 weeks. 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 Enjoys 4-wheeling, kayaking and [...] in reach and aware to call for medical staff physician assistance with all mobility. Education: Pt educated [...] aware to callfor assistance with mobility, and medical staff physician aware of his status. Expect d/c to [...] Code: functional mobility LUIS MIGUEL PEREZ, PT Pager:[phone] Physical Therapy Inpatient Rehabilitation Department * Messi [...] IR Thoracentesis Left 11/08/2021 Ramírez Ramirez MD [facility] INTERVENTIONL RAD ??? PRO BRONCHOSCOPY, DIAGNOSTIC N/A 03/29/2021 ?? BRONCHOSCOPY, DIAGNOSTIC (WRVU 2.78) performed by Gilmer Foster MD at [facility] MAIN OR ??? PRO BRONCHOSCOPY, DIAGNOSTIC N/A 02/08/2022 ?? BRONCHOSCOPY, DIAGNOSTIC (WRVU 2.78) performed by Gilmer Foster MD at [facility] MAIN OR ??? PRO BRONCHOSCOPY, DIAGNOSTIC N/A 05/18/2022 ?? BRONCHOSCOPY, DIAGNOSTIC (WRVU 2.53) performed by Gilmer Foster MD at [facility] MAIN OR ??? PRO DECORTICATION, PULMONARY, TOTAL Left 05/18/2022 ?? @THORACOTOMY,DECORTICATION, PULMONARY, TOTAL (WRVU 26.65) performed by Gilmer Foster MDat [facility] MAIN OR ? ? PRO INJECTION ANES AGENT &/ STEROID INTERCOSTAL NERVE SINGLE LEVEL Left 03/29/2021 ?? NERVE BLOCK, INTERCOSTAL NERVE (WRVU 1.18) performed by Gilmer Foster MD at [facility] MAIN OR ??? PRO RECONSTRUCT INJURED CHEST Left 05/18/2022 ?? @MAJOR RECONSTRUCTION, CHEST WALL (WRVU 22.51) performed by Gilmer Foster MD at [facility] OR ??? PRO THORACOSCOPY SURG LOBECTOMY Left 03/29/2021 ?? @THORACOSCOPY,SURGICAL,W\LOBECTOMY,TOTAL OR SEGMENTAL (WRVU 24.64) performed by Gilmer Foster MD at [facility] MAIN OR ??? PRO THORACOSCOPY WITH BIOPSY OF PLEURA Left 02/08/2022 ?? THORACOSCOPY; WITH BIOPSY(IES) OF PLEURA (WRVU 4.58) performed by Gilmer Foster MD at [facility] OR ??? PRO THORACOSCOPY WITH MEDIASTINAL AND REGIONAL LYMPHADENECTOMY ?? 03/29/2021 ?? @THORACOSCOPY, SURG; W/MEDIASTINAL& REGIONAL LYMPHADENECTOMY (WRVU 4.12) performed by Gilmer Foster MD at [facility] OR ??? PRO THORACOSCOPY WITH WEDGE RESECTION AND ANATOMIC LUNG RESECTN Left 03/29/2021 ?? @THORACOSCOPY, SURG; W/DX WEDGE RESC W/ANATOMIC LUNG RESC (WRVU 3) performed by Gilmer Foster MD at [facility] OR ? Social History: Patient lives [...] more times Total Minutes, Occupational Therapy: 34 ([facility] X2 ([phone])) Pager: [phone] Messi Dooley, TRAN 05/23/2022 Occupational Therapy Rehabilitation [...] acting as a scribe for Dr. Molina. [facility] Nurse: Oj Don RN Resident:: Jakob Dickerson DO Attending Physician:: Katie Molina MD I performed the above scribed service and agree with the accuracy of the note. KATIE MOLINA MD * Camilo Stevenson PA - 05/23/2022 9:19 AM EDT [facility] Department of Thoracic Surgery Inpatient Progress Note Patient Name: Rajan Marquez Patient : 1950 Patient Patient Location: [address] [place] [address] Attending Surgeon: GILMER FOSTER ID: Rajan Marquez [...] Surgical Unit Level 3 Wing D at [facility] Office Visit from 04/30/2022 in Thoracic Surgery at [facility] Weight 73.1 kilograms, or 161 pounds 2.5 [...] STEVE Black 05/23/2022 Thoracic Surgery Service Pager [phone] * Katie Molina MD - 05/22/2022 9:34 [...] RESECTION @MAJOR RECONSTRUCTION, CHEST WALL (WRVU 22.51) [facility] EPIDURAL ROUNDIN05/22/2022 9:34 AM Average Numeric [...] acting as a scribe for Dr. Molina. [facility] Nurse: Oj Don RN Resident:: Jakob Dickerson DO Attending Physician:: Katie Molina MD I performed the above scribed service and agree with the accuracy of the note. KATIE MOLINA MD * Renu Donald PA - 05/22/2022 6:40 AM EDT Images from the original note were not included. [facility] Department of Thoracic Surgery Inpatient Progress Note Patient Name: Rajan Marquez Patient : 1950 [facility] Attending Surgeon: GILMER FOSTER ID: Rajan Marquez [...] Surgical Unit Level 3 Wing D at [facility] Office Visit from 04/30/2022 in Thoracic Surgery at [facility] Weight 77 kg (169 lb 11.2 oz) [...] peripheral edema. 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 No surrounding [...] ?resume home Xarelto ID: periop abx complete, SHELLYE Endo: SHELLEY Rheum: Plaquenil PPx: SQH, SCDs, compression stockings, early ambulation Dispo: Floor status, Full code All plans formulated in discussion with and directed by attending thoracic surgeon Dr. Foster. STEVE Patel 05/22/2022 Thoracic Surgery Service Pager [phone] * Devorah Rivera RN - 05/22/2022 4:40 [...] Thoracentesis Left 11/08/2021 Forauer, Ramírez Ziegler MD [facility] INTERVENTIONL RAD ??? PRO BRONCHOSCOPY, DIAGNOSTIC N/A 03/29/2021 BRONCHOSCOPY, DIAGNOSTIC (WRVU 2.78) performed by Gilmer Foster MD at [facility] OR ??? PRO BRONCHOSCOPY, DIAGNOSTIC N/A 02/08/2022 BRONCHOSCOPY, DIAGNOSTIC (WRVU 2.78) performed by Gilmer Foster MD at [facility] OR ??? PRO BRONCHOSCOPY, DIAGNOSTIC N/A 05/18/2022 BRONCHOSCOPY, DIAGNOSTIC (WRVU 2.53) performed by Gilmer Foster MD at [facility] OR ??? PRO DECORTICATION, PULMONARY, TOTAL Left 05/18/2022 @THORACOTOMY,DECORTICATION, PULMONARY, TOTAL (WRVU 26.65) performed by Gilmer Foster MD [facility] OR ? ? PRO INJECTION ANES AGENT &/ STEROID INTERCOSTAL NERVE SINGLE LEVEL Left 03/29/2021 NERVE BLOCK, INTERCOSTAL NERVE (WRVU 1.18) performed by Gilmer Foster MD at [facility] OR ??? PRO RECONSTRUCT INJURED CHEST Left 05/18/2022 @MAJOR RECONSTRUCTION, CHEST WALL (WRVU 22.51) performed by Gilmer Foster MD at [facility] OR ??? PRO THORACOSCOPY SURG LOBECTOMY Left 03/29/2021 @THORACOSCOPY,SURGICAL,W\LOBECTOMY,TOTAL OR SEGMENTAL (WRVU 24.64) performed by Johana Foster MD at [facility] OR ??? PRO THORACOSCOPY WITH BIOPSY OF PLEURA Left 02/08/2022 THORACOSCOPY; WITH BIOPSY(IES) OF PLEURA (WRVU 4.58) [facility] ??? PRO THORACOSCOPY WITH MEDIASTINAL AND REGIONAL LYMPHADENECTOMY 03/29/2021 @THORACOSCOPY, SURG; W/MEDIASTINAL& REGIONAL LYMPHADENECTOMY (WRVU 4.12) performed by Gilmer Foster MD at [facility] MAIN OR ??? PRO THORACOSCOPY WITH WEDGE RESECTION AND ANATOMIC LUNG RESECTN Left 03/29/2021 @THORACOSCOPY, SURG; W/DX WEDGE RESC W/ANATOMIC LUNG RESC (WRVU 3) performed by Johana Foster MD at [facility] MAIN OR Social History: Home set-up: Lives in a ranch style home with a basement and his partner. Bathroom Set-up: Walk in or tub shower on the main level, usually uses the tub shower. Stairs: ramp to enter. Baseline Mobility: hasn't been driving recently and has been using a cane for ~ 2 weeks. 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 Enjoys 4-wheeling, kayaking and yard work. Equipment [...] Balance, Discharge planning and to call for medical staff physician assistance with all mobility and needs reinforcement. [...] Code: evaluation LUIS MIGUEL PEREZ, PT Pager: [phone] Physical Therapy Inpatient Rehabilitation Department * Sites, [...] scribe for Dr. Karri Ellis. Anesthesia Staff ([facility]) Patient seen and examined on daily rounds. I agree with the above assessment and plan. [facility] Nurse: Messi Vieira RN Resident:: Jakob Dickerson DO Attending Physician:: Karri Ellis MD * Renu Donald PA - 05/21/2022 8:11 AM EDT Images from the original note were not included. [facility] Department of Thoracic Surgery Inpatient Progress Note Patient Name: Rajan Marquez Patient : 1950 Patient Patient Location: [address] [place] [address] Attending Surgeon: GILMER FOSTER ID: Rajan Marquez [...] Surgical Unit Level 3 Wing D at [facility] Office Visit from 04/30/2022 in Thoracic Surgery at [facility] Weight 77.3 kg (170 lb 8 oz) [...] QTC Calculated (Bezet) 492 ms Calculated P [place] 106 degrees Calculated R [place] 71 degrees Calculated T [place] -169 degrees INTERPRETATION Sinus tachycardia Incomplete left [...] Result Value Ref Range Surgical Pathology Report [id number] Location: OR; OR11; A The signing pathologist has (i) examined the relevant preparation(s) for the specimen(s) and (ii) rendered or confirmed the diagnosis(es). . Frozen Section FROZEN SECTION DIAGNOSIS CFS - VISCERAL PLEURAL RIND. FROZEN, excision for frozen section Inflamed pleura, no evidence of malignancy (artists' booking representative sample) 05/18/22 11:27 Electronically signed by: Malia Lacy MD Verified: 05/18/2022 11:29 Pathologist Performed at: -[facility] Dept. of Pathology, [place] [address] Brim Raiser: Maria Ines Marrufo MD, FCAP, [place] Certificate: [id number] This intraoperative consultation should be interpreted as [...] MD Verified: 05/18/2022 11:25 Pathologist Performed at: -[facility] Dept. of Pathology, [place] [id number] Brim Raiser: Maria Ines Marrufo MD, AP, [facility] Certificate: [id number] This intraoperative consultation should be interpreted as [...] Value Ref Range T&S only valid at [facility] Hosp Basic Metabolic Panel (non-fasting) Result Value [...] QTC Calculated (Bezet) 454 ms Calculated R [place] 82 degrees Calculated T [place] -102 degrees INTERPRETATION Sinus tachycardia with 1st degree A-V block Minimal voltage criteria for LVH, may be normal variant ( [place] product ) Nonspecific T wave abnormality Abnormal [...] Epidural w/ PCEA per APS recommendations. Tylenol, TISSUE COORDINATOR Bupropion Card: May consider increasing Metoprolol to 25mg BID, amiodarone (200mg daily) Pulm: IS/cough/deep breathe/OOB/ambulate. Continue left CT to -20 suction, monitor output. TISSUE COORDINATOR spiriva, albuterol FENGI: Stop IVF, Regular diet. RBOs Renal/: Matt in place - will keep until epidural out, monitor UOP Heme: SQH, holding home Xarelto ID: SHELLEY Endo: SHELLEY MSK: TISSUE COORDINATOR hydroxychloroquine for synovitis PPx: scds; SQH, Ambulate 4x a day. OOB. Other: Left arm in sling when OOB Dispo: full code, floor status All plans formulated in discussion with and directed by attending thoracic surgeon Dr. Foster. STEVE Peñaloza 05/21/2022 Thoracic Surgery Service Pager [phone] * Devorah Rivera RN - 05/21/2022 4:15 [...] Davis MD - 05/20/2022 7:39 AM EDT [facility] Department of Thoracic Surgery Inpatient Progress Note Patient Name: Rajan Marquez Patient : 1950 Patient Patient Location: [address] [place] [address] Attending Surgeon: GILMER FOSTER ID: Rajan Marquez [...] Surgical Unit Level 3 Wing D at [facility] Office Visit from 04/30/2022 in Thoracic Surgery at [facility] Weight 75.4 kg (166 lb 3.2 oz) [...] QTC Calculated (Bezet) 492 ms Calculated P [place] 106 degrees Calculated R [place] 71 degrees Calculated T [place] -169 degrees INTERPRETATION Sinus tachycardia Incomplete left [...] Result Value Ref Range Surgical Pathology Report [id number] Location: OR; OR11; A The signing pathologist has (i) examined the relevant preparation(s) for the specimen(s) and (ii) rendered or confirmed the diagnosis(es). . Frozen Section FROZEN SECTION DIAGNOSIS CFS - VISCERAL PLEURAL RIND. FROZEN, excision for frozen section Inflamed pleura, no evidence of malignancy (artists' booking representative sample) 05/18/22 11:27 Electronically signed by: Malia Lacy MD Verified: 05/18/2022 11:29 Pathologist Performed at: [facility] Dept. of Pathology, [place] [address] Brim Raiser: Maria Ines Marrufo MD, FCAP, [place] Certificate: [id number] This intraoperative consultation should be interpreted as [...] MD Verified: 05/18/2022 11:25 Pathologist Performed at: [facility] Dept. of Pathology, [place] [id number] Brim Raiser: Maria Ines Marrufo MD, AP, [place] Certificate: [id number] This intraoperative consultation should be interpreted as [...] Value Ref Range T&S only valid at [facility] Hosp Basic Metabolic Panel (non-fasting) Result Value [...] who have questions please contact the health prompt care rn that requested your imaging first. Electronically signed by: Maryann Magallanes MD, [facility] ([phone]), at 05/18/2022 4:02 PM Assessment: Rajan Marquez [...] PT consulted. Plan: Neuro: Epidural w/ PCEA. TISSUE COORDINATOR bupropion Card: HDS, TISSUE COORDINATOR metoprolol, amiodarone (200mg daily) Pulm: IS/cough/deep breathe/OOB/ambulate. Continue left CT to -20 suction, monitor output. TISSUE COORDINATOR spiriva, albuterol FENGI: LR @100 ml/hr, Regular diet. RBOs Renal/: Matt in place, monitor UOP Heme: SQH ID: SHELLEY Endo: SHELLEY MSK: TISSUE COORDINATOR hydroxychloroquine for synovitis PPx: scds; SQH, Ambulate 4x a day. OOB. Dispo: full code, floor status Vaughn Davis MD 05/20/2022 Thoracic Surgery Service Pager [phone] * Caleb, Karri Sharp MD - 05/19/2022 [...] Armas MD - 05/19/2022 8:15 AM EST [facility] Department of Thoracic Surgery Inpatient Progress Note Patient Name: Rajan Marquez Patient : 1950 [facility] Attending Surgeon: GILMER FOSTER ID: Rajan Marquez [...] Surgical Unit Level 3 Wing D at [facility] Office Visit from 04/30/2022 in Thoracic Surgery at [facility] Weight 71.5 kg (157 lb 11.2 oz) [...] QTC Calculated (Bezet) 492 ms Calculated P [place] 106 degrees Calculated R [place] 71 degrees Calculated T [place] -169 degrees INTERPRETATION Sinus tachycardia Incomplete left [...] Result Value Ref Range Surgical Pathology Report [id number] Location: OR; OR11; A The signing pathologist has (i) examined the relevant preparation(s) for the specimen(s) and (ii) rendered or confirmed the diagnosis(es). . Frozen Section FROZEN SECTION DIAGNOSIS CFS - VISCERAL PLEURAL RIND. FROZEN, excision for frozen section Inflamed pleura, no evidence of malignancy (artists' booking representative sample) 05/18/22 11:27 Electronically signed by: Malia Lacy MD Verified: 05/18/2022 11:29 Pathologist Performed at: -[facility] Dept. of Pathology, [place] [address] Brim Raiser: Maria Ines Marrufo MD, FCLESLY, CLIA Certificate: [id number] This intraoperative consultation should be interpreted as [...] MD Verified: 05/18/2022 11:25 Pathologist Performed at: -[facility] Dept. of Pathology, [place] [address] Brim Raiser: Maria Ines Marrufo MD, FCAP, CLIA Certificate: [id number] This intraoperative consultation should be interpreted as [...] Value Ref Range T&S only valid at [facility] Basic Metabolic Panel (non-fasting) Result Value [...] who have questions please contact the health prompt care rn that requested your imaging first. Assessment: Rajan [...] PT consulted. Plan: Neuro: Epidural w/ PCEA. TISSUE COORDINATOR bupropion Card: HDS, TISSUE COORDINATOR metoprolol, amiodarone (200mg daily) Pulm: IS/cough/deep breathe/OOB/ambulate. Continue left CT to -20 suction, monitor output. TISSUE COORDINATOR spiriva, albuterol FENGI: LR @100 ml/hr, Regular diet. RBOs Renal/: Matt in place, monitor UOP Heme: SQH ID: SHELLEY Endo: SHELLEY MSK: TISSUE COORDINATOR hydroxychloroquine for synovitis PPx: scds; SQH, Ambulate 4x a day. OOB. Dispo: full code, floor status Morales Armas MD 05/19/2022 Thoracic Surgery Service Pager [phone] * Morales Armas MD - 05/18/2022 3:27 PM EST [facility] Department of Thoracic Surgery Inpatient Post Op Check Patient Name: Rajan Marquez Patient : 1950 Patient Patient Location: [address] Attending Surgeon: GILMER FOSTER ID: Rajan [...] Admission (Current) from 05/18/2022 in PACU at [facility] OfficeVisit from 04/30/2022 in Thoracic Surgery at [facility] Weight 71.5 kg (157 lb 11.2 oz) [...] QTC Calculated (Bezet) 492 ms Calculated P [place] 106 degrees Calculated R [place] 71 degrees Calculated T [place] -169 degrees INTERPRETATION Sinus tachycardia Incomplete left bundle block Minimal voltage criteria for LVH, may be normal variant ( [place] product ) Nonspecific ST and T wave abnormality Abnormal ECG When compared with ECG of 21-FEB-2022 06:21, Sinus rhythm has replaced Atrial flutter Incomplete left bundle block is now Present Tissue culture Specimen: Lung Left pleural grumous Result Value Ref Range Gram Stain Few Neutrophils seen No microorganisms seen. Surgical Pathology Report Result Value Ref Range Surgical Pathology Report [id number] Location: OR; OR11; A The signing pathologist has (i) examined the relevant preparation(s) for the specimen(s) and (ii) rendered or confirmed the diagnosis(es). . Frozen Section [place]ZEN SECTION DIAGNOSIS CFS - VISCERAL PLEURAL RIND. FROZEN, excision for frozen section Inflamed pleura, no evidence of malignancy (artists' booking representative sample) 05/18/22 11:27 Electronically signed by: Malia Lacy MD Verified: 05/18/2022 11:29 Pathologist Performed at: -[facility] Dept. of Pathology, [place] [address] Brim Raiser: Maria Ines Marrufo MD, FCAP, CLIA Certificate: [id number] This intraoperative consultation should be interpreted as [...] MD Verified: 05/18/2022 11:25 Pathologist Performed at: -[facility] Dept. of Pathology, [place] [address] Brim Raiser: Maria Ines Marrufo MD, FCAP, CLIA Certificate: [id number] This intraoperative consultation should be interpreted as [...] Value Ref Range T&S only valid at [facility] Hosp Basic Metabolic Panel (non-fasting) Result Value [...] who have questions please contact the health prompt care rn that requested your imaging first. Electronically signed by: Maryann Magallanes MD, [facility] ([phone]), at 05/18/2022 4:02 PM Assessment: Rajan Marquez is a 71 y.o. male who is Day of Surgery s/p robotic, converted to open left thoracotomy and total decortication. He is currently in stable condition and recovering well postoperatively.Post op CXR and labs reviewed. Maintain posterior CT strict suction and use a sling when OOB for left arm Plan: Neuro: Epidural w/ PCEA. TISSUE COORDINATOR bupropion Card: HDS, TISSUE COORDINATOR metoprolol, amiodarone (200mg daily) Pulm: IS/cough/deep breathe/OOB/ambulate. Continue left CT to -20 suction, monitor output. TISSUE COORDINATOR spiriva, albuterol FENGI: LR @100 ml/hr, Regular diet. RBOs Renal/: Matt in place, monitor UOP Heme: SQH ID: SHELLEY Endo: SHELLEY MSK: TISSUE COORDINATOR hydroxychloroquine for synovitis PPx: scds; SQH, Ambulate 4x a day. OOB. Dispo: full code, floor status Vaughn Davis MD 05/18/2022 Thoracic Surgery Service Pager [phone] * Missy Abdi RN - 05/18/2022 2:31 [...] IR Thoracentesis Left 11/08/2021 Ramírez Ramirez MD [facility] INTERVENTIONL RAD ??? PRO BRONCHOSCOPY, DIAGNOSTIC N/A 03/29/2021 BRONCHOSCOPY, DIAGNOSTIC (WRVU 2.78) performed by Gilmer Foster MD at [facility] MAIN OR ??? PRO BRONCHOSCOPY, DIAGNOSTIC N/A 02/08/2022 BRONCHOSCOPY, DIAGNOSTIC (WRVU 2.78) performed by Gilmer Foster MD at [facility] MAIN OR ? ? PRO INJECTION ANES AGENT &/ STEROID INTERCOSTAL NERVE SINGLE LEVEL Left 03/29/2021 NERVE BLOCK, INTERCOSTAL NERVE (WRVU 1.18) performed by Gilmer Foster MD at [facility] MAIN OR ??? PRO THORACOSCOPY SURG LOBECTOMY Left 03/29/2021 @THORACOSCOPY,SURGICAL,W\LOBECTOMY,TOTAL OR SEGMENTAL (WRVU 24.64) performed by Johana Foster MD at [facility] OR ??? PRO THORACOSCOPY WITH BIOPSY OF PLEURA Left 02/08/2022 THORACOSCOPY; WITH BIOPSY(IES) OF PLEURA (WRVU 4.58) performed by Gilmer Foster MD at [facility] OR ??? PRO THORACOSCOPY WITH MEDIASTINAL AND REGIONAL LYMPHADENECTOMY 03/29/2021 @THORACOSCOPY, SURG; W/MEDIASTINAL& REGIONAL LYMPHADENECTOMY (WRVU 4.12) performed by Gilmer Foster MD at [facility] OR ??? PRO THORACOSCOPY WITH WEDGE RESECTION AND ANATOMIC LUNG RESECTN Left 03/29/2021 @THORACOSCOPY, SURG; W/DX WEDGE RESC W/ANATOMIC LUNG RESC (WRVU 3) performed by Johana Foster MD at [facility] OR MEDS: No current facility-administered medications [...] STEVE Sethi 05/18/2022 Thoracic Surgery Service Pager [phone] documented in this encounter Miscellaneous Notes * [...] MEDICARE Payor: [facility] MANAGED MEDICARE / Plan: [facility] / Product Type: *No Producttype* / Secondary Insurance: N/A Prescription Coverage: Yes This plan was formulated with input from patient and team. All are in agreement with plan. Kenia Sepulveda RN-BSN-CM Pager: [phone] * Plan of Care - Raquel Hoffmann [...] surrogate would be surrogate decision maker per [place] decision making law. (Only good for 180 days) Any patient receiving care in [place] must abide by [place] law. The hierarchy for surrogate decision making [...] (i) The agent with financial power of commercial attorney or a conservator appointed in accordance [...] straight Home Address confirmed as: [address] [facility] [address] Social & Family Supports: All names listed [...] Specific Information: none Health/Prescription Coverage: Primary Insurance: [facility] MANAGED MEDICARE Payor: [facility] MANAGED MEDICARE / Plan: [facility] COM[facility]TE / Product Type: *No Producttype* / Secondary Insurance: N/A ; Prescription Coverage: Yes Preferred Pharmacy: [facility] [address] [address] [place] Status: Patient is a : No Primary Care Provider confirmed: Tami Olivia [phone] Patient/Caregiver Goals of Treatment: discharge home Potential Needs for Transition of Care: home health care Agency Referrals: I have met with the patient to: ?? discuss discharge planning needs. ?? provide the [facility], Office of Care Management letter from the Brim Raiser pertaining to rehabreferrals. ?? provide a letter describing our affiliations within the [facility] and educate about their right to choose where referrals are sent. ?? provide a list of Home Health Agencies / Durable Medical Equipment vendors which serve their preferred geographic area. ?? provided patient with [facility] Star Quality Rating handout. They have requested referrals to: [facility]. [address] [place] [address] Note routed to a Umbrella Finisher who will communicate referrals to facilities and [...] of care planning. Kenia Sepulveda RN-BSN-CM Pager: [phone] * Initial Assessments - Messi Dooley, OT [...] IR Thoracentesis Left 11/08/2021 Ramírez Ramirez MD [facility] INTERVENTIONL RAD ??? PRO BRONCHOSCOPY, DIAGNOSTIC N/A 03/29/2021 BRONCHOSCOPY, DIAGNOSTIC (WRVU 2.78) performed by Gilmer Foster MD at [facility] MAIN OR ??? PRO BRONCHOSCOPY, DIAGNOSTIC N/A 02/08/2022 BRONCHOSCOPY, DIAGNOSTIC (WRVU 2.78) performed by Gilmer Foster MD at [facility] MAIN OR ??? PRO BRONCHOSCOPY, DIAGNOSTIC N/A 05/18/2022 BRONCHOSCOPY, DIAGNOSTIC (WRVU 2.53) performed by Gilmer Foster MD at [facility] MAIN OR ??? PRO DECORTICATION, PULMONARY, TOTAL Left 05/18/2022 @THORACOTOMY,DECORTICATION, PULMONARY, TOTAL (WRVU 26.65) performed by Gilmer Foster MD [facility] MAIN OR ? ? PRO INJECTION ANES AGENT &/ STEROID INTERCOSTAL NERVE SINGLE LEVEL Left 03/29/2021 NERVE BLOCK, INTERCOSTAL NERVE (WRVU 1.18) performed by Gilmer Foster MD at [facility] MAIN OR ??? PRO RECONSTRUCT INJURED CHEST Left 05/18/2022 @MAJOR RECONSTRUCTION, CHEST WALL (WRVU 22.51) performed by Gilmer Foster MD at [facility] MAIN OR ??? PRO THORACOSCOPY SURG LOBECTOMY Left 03/29/2021 @THORACOSCOPY,SURGICAL,W\LOBECTOMY,TOTAL OR SEGMENTAL (WRVU 24.64) performed by Johana Foster MD at [facility] MAIN OR ??? PRO THORACOSCOPY WITH BIOPSY OF PLEURA Left 02/08/2022 THORACOSCOPY; WITH BIOPSY(IES) OF PLEURA (WRVU 4.58) [facility] ??? PRO THORACOSCOPY WITH MEDIASTINAL AND REGIONAL LYMPHADENECTOMY 03/29/2021 @THORACOSCOPY, SURG; W/MEDIASTINAL& REGIONAL LYMPHADENECTOMY (WRVU 4.12) performed by Gilmer Foster MD at [facility] MAIN OR ??? PRO THORACOSCOPY WITH WEDGE RESECTION AND ANATOMIC LUNG RESECTN Left 03/29/2021 @THORACOSCOPY, SURG; W/DX WEDGE RESC W/ANATOMIC LUNG RESC (WRVU 3) performed by Johana Foster MD at [facility] OR Social History: Patient lives with [...] ?? WNL / WFL Communication: WFL B [facility] (pt reports hearing aids are no [...] planning. Total Minutes, Occupational Therapy: 40 (Eval ([id number])) 2017 OT Evaluation Code Rationale: ?? Diagnosis [...] and measurable assessment of functional outcome. Pager: [phone] Messi Dooley OT 05/21/2022 Occupational Therapy Rehabilitation [...] Jose Manuel Salinas RN RN/CM - Cellphone: [phone] Pager: [phone] Covering Service RN/CM * Plan of Care - Mamta Mccullough RN - 05/19/2022 4:19 PM EST OUTCOME EVALUATION NOTE: OUTCOME SUMMARY: VSS BPs soft (250ml Bolus given) on 2L NC-coughing w/ mild [place]; denies CP/N/V; pain well managed with epidural 1-2; dressings intact no OPTIMIZATION ANALYST known air leak; making adeq urine; tolerating [...] managed with epidural -04/20; dressings intact no OPTIMIZATION ANALYST known air leak; making adeq urine; tolerating [...] Foster MD - 05/18/2022 3:42 PM EST [facility] Operative Note Patient Name: Rajan Marquez : [id number] MR#: [id number] Case Date: 05/18/2022 Surgeon: Surgeon(s) and Role: * Gilmer Foster MD - Primary * Linda Mustafa PA - Physician Gardening Manager * Renu Donald PA - Physician Gardening Manager * Morales Armas MD - Resident Preoperative [...] 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 [facility] surgical timeout confirmed the patient's identity and [...] muscular attachments and divided with the sliding window/distribution clerk and then excised in pieces with [...] muscular attachments and divided with the sliding window/distribution clerk. This maneuverpermitted a Finochietto rib flight communications officer to be placed. The remainder of the [...] did appear to expand significantly. A 28 [place] chest tube was placed thr ough the camera port and advanced to the apex of the hemithorax and secured. We assessed the defectmade by resection of the fifth and sixth ribs. Because of the concern for scapular trapping, we elected to patch this defect. 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 Left visceral pleural [...] 10:40 AM EST Office Visit Cardiology at [address] [address] Chrissy Zepeda APRN [facility] [place] [address] Scheduled Procedures Name Priority Associated Diagnoses Date/Ti [...] 05/18/2022 10:17 AM EST Reconstruct Injured Chest (41368) 05/18/2022 9:19 AM EST Status post lobectomy of lung MODIFIER RIB RESECTION 05/18/2022 9:19 AM EST Status post lobectomy of lung Bronchoscopy, Diagnostic ([id number]) 05/18/2022 9:19 AM EST Status post lobectomy of lung Decortication, Pulmonary, Total (75342) 05/18/2022 9:19 AM EST Status post lobectomy [...] who have questions please contact the health prompt care rn that requested your imaging first. ? [...] patients who have questions please contactthe health prompt care rn that requested your imaging first. Electronically signed by: Savanah Suazo MD, [facility] ([phone]), at 06/11/2022 4:12 PM Gilmer Foster MD [...] who have questions please contact the health prompt care rn that requested your imaging first. ? Narrative 05/24/2022 10:06 AM EDT EXAMINATION: XR [...] patients who have questions please contactthe health prompt care rn that requested your imaging first. Gilmer Foster [...] who have questions please contact the health prompt care rn that requested your imaging first. ? Narrative 05/24/2022 8:58 AM EDT EXAMINATION: XR [...] patients who have questions please contactthe health prompt care rn that requested your imaging first. Gilmer Foster MD IMG DX ORDERABLE S * Differential, Automated (05/24/2022 3:36 AM EDT) Neutrophil % 69.4 % [facility] Neutrophil Absolute 4.63 1.70 - 6.10 x10(3)/[facility] Lymph % 17.4 % [facility] Lymphocytes Abs 1.2 0.9 - 3.2 x10(3)/[facility] Monocyte % 11.1 % [facility] Monocyte Abs 0.7 0.3 - 0.9 x10(3)/[facility] Eos % 1.3 % [facility] Eosinophils Abs 0.1 0.0 - 0.4 x10(3)/[facility] Basophil % 0.7 % [facility] Baso Absolute 0.0 0.0 - 0.1 x10(3)/[facility] Immature Gran % 0.10 % [facility] Comment: Immature granulocytes(IG's)percentage and absolute count will include metamyelocytes, myelocytes, and promyelocytes. Blood smears from CBCs yielding IG's will be scanned manually for concordance. If this scan disagrees with the automated IG or if promyelocytes are noted, a manual differential will be performed. Immature Gran Absolute 0.01 0.00 - 0.04 x10(3)/[facility] Blood 05/24/2022 3:36 AM EDT 05/24/2022 4:02 AM EDT Narrative Resulting Agency Comment Spec In Lab Morales Armas MD HEMATOLOGY ORDERABLE S [facility] [place] [address] * (ABNORMAL) Hemogram (05/24/2022 3:36 AM EDT) White Blood Cell 6.7 4.0 - 9.5 x10(3)/mc L [facility] Red Blood Cell 3.10(L) 4.58 - 5.54 x10(6)/mc L [facility] Hemoglobin 8.1(L) 13.7 - 16.5 g/dL [facility] Hematocrit 25.8(L) 40.5 - 48.5 % [facility] Mean Cell Volume 83.2 82.9 - 93.1 fL [facility] Mean Cell Hemoglobin 26.1(L) 27.5 - 32.1 pg [facility] Mean Cell Hemoglobin Concentration 31.4(L) 32.0 - 35.7 g/dL [facility] Platelet 262 145 - 357 x10(3)/mc L [facility] RDW Standard Deviation 54.4(H) 36.0 - 45.0 fL [facility] RDW coefficient of variation 18.2(H) 11.4 - 13.8 % [facility] Mean Platelet Volume 8.3 7.6 - 12.9 fL [facility] NRBC% auto 0.0 % [facility] NRBC Absolute 0.000 0.000 - 0.000 x10(3)/ L [facility] Blood 05/24/2022 3:36 AM EDT 05/24/2022 4:02 AM EDT Narrative Resulting Agency Comment Spec In Lab Morales Armas MD HEMATOLOGY ORDERABLE S [facility] [place] [address] * (ABNORMAL) Basic Metabolic Panel (non-fasting) (05/24/2022 3:36 AM EDT) Glucose 99 65 - 199 mg/dL [facility] Comment:Diabetes: >=200 mg/d L plus symptoms Blood Urea Nitrogen 18 10 - 20 mg/dL [facility] Creatinine 0.91 0.80 - 1.50 mg/dL [facility] Sodium 138 135 - 145 mmol/L [facility] Potassium 3.6 3.5 - 5.0 mmol/L [facility] Comment: Please note: ??Patients with WBC >100,000 may have falsely elevated Potassium levels. ??For accurate Potassium quantification in these patients send serum separator tube (gold top) for subsequent determinations. ??Contact the Clinical Chemistry Laboratory if there are any questions. Chloride 104 98 - 107 mmol/L [facility] Carbon Dioxide 25 22 - 31 mmol/L [facility] Anion Gap 9 5 - 15 mmol/L [facility] Calcium 8.3(L) 8.5 - 10.5 mg/dL [facility] Est Glomerular Filtration Rate 90 >=60 mL/min/1. 73 m?? [facility] Comment: This patient's estimated GFR [...] Lab Gilmer Foster MD CHEMISTRY ORDERA BLES [facility] [place] [address] * XR Chest PA & Lateral (Generic) [...] who have questions please contact the health prompt care rn that requested your imaging first. ? Narrative 05/23/2022 7:33 AM EDT EXAMINATION: XR [...] patients who have questions please contactthe health prompt care rn that requested your imaging first. Gilmer Foster MD IMG DX ORDERABLE S * Differential, Automated (05/23/2022 3:52 AM EDT) Neutrophil % 69.8 % [facility] Neutrophil Absolute 4.74 1.70 - 6.10 x10(3)/[facility] Lymph % 18.7 % [facility] Lymphocytes Abs 1.3 0.9 - 3.2 x10(3)/[facility] Monocyte % 10.2 % [facility] Monocyte Abs 0.7 0.3 - 0.9 x10(3)/[facility] Eos % 0.6 % [facility] Eosinophils Abs 0.0 0.0 - 0.4 x10(3)/[facility] Basophil % 0.4 % [facility] Baso Absolute 0.0 0.0 - 0.1 x10(3)/[facility] Immature Gran % 0.30 % [facility] Comment: Immature granulocytes(IG's)percentage and absolute count will include metamyelocytes, myelocytes, and promyelocytes. Blood smears from CBCs yielding IG's will be scanned manually for concordance. If this scan disagrees with the automated IG or if promyelocytes are noted, a manual differential will be performed. Immature Gran Absolute 0.02 0.00 - 0.04 x10(3)/[facility] Blood 05/23/2022 3:52 AM EDT 05/23/2022 4:08 AM EDT Narrative Resulting Agency Comment Spec In Lab Morales Armas MD HEMATOLOGY ORDERABLE S [facility] [place] [address] * (ABNORMAL) Hemogram (05/23/2022 3:52 AM EDT) White Blood Cell 6.8 4.0 - 9.5 x10(3)/mc L [facility] Red Blood Cell 3.13(L) 4.58 - 5.54 x10(6)/mc L [facility] Hemoglobin 8.2(L) 13.7 - 16.5 g/dL [facility] Hematocrit 26.5(L) 40.5 - 48.5 % [facility] Mean Cell Volume 84.7 82.9 - 93.1 fL [facility] Mean Cell Hemoglobin 26.2(L) 27.5 - 32.1 pg [facility] Mean Cell Hemoglobin Concentration 30.9(L) 32.0 - 35.7 g/dL [facility] Platelet 256 145 - 357 x10(3)/mc L [facility] RDW Standard Deviation 55.4(H) 36.0 - 45.0 fL [facility] RDW coefficient of variation 17.9(H) 11.4 - 13.8 % [facility] Mean Platelet Volume 8.3 7.6 - 12.9 fL [facility] NRBC% auto 0.0 % [facility] NRBC Absolute 0.000 0.000 - 0.000 x10(3)/ L [facility] Blood 05/23/2022 3:52 AM EDT 05/23/2022 4:08 AM EDT Narrative Resulting Agency Comment Spec In Lab Morales Armas MD HEMATOLOGY ORDERABLE S [facility] [place] [address] * Basic Metabolic Panel (non-fasting) (05/23/2022 3:52 AM EDT) Glucose 99 65 - 199 mg/dL [facility] Comment:Diabetes: >=200 mg/d L plus symptoms Blood Urea Nitrogen 14 10 - 20 mg/dL [facility] Creatinine 0.94 0.80 - 1.50 mg/dL [facility] Sodium 135 135 - 145 mmol/L [facility] Potassium 3.6 3.5 - 5.0 mmol/L [facility] Comment: Please note: ??Patients with WBC >100,000 may have falsely elevated Potassium levels. ??For accurate Potassium quantification in these patients send serum separator tube (gold top) for subsequent determinations. ??Contact the Clinical Chemistry Laboratory if there are any questions. Chloride 100 98 - 107 mmol/L [facility] Carbon Dioxide 27 22 - 31 mmol/L [facility] Anion Gap 8 5 - 15 mmol/L [facility] Calcium 8.6 8.5 - 10.5 mg/dL [facility] Est Glomerular Filtration Rate 86 >=60 mL/min/1. 73 m?? [facility] Comment: This patient's estimated GFR [...] Lab Gilmer Foster MD CHEMISTRY ORDERA BLES [facility] [place] [address] * Differential, Automated (05/22/2022 3:47 AM EDT) Neutrophil % 72.4 % [facility] Neutrophil Absolute 5.30 1.70 - 6.10 x10(3)/mcL [facility] Lymph % 15.2 % [facility] Lymphocytes Abs 1.1 0.9 - 3.2 x10(3)/[facility] Monocyte % 11.1 % [facility] Monocyte Abs 0.8 0.3 - 0.9 x10(3)/[facility] Eos % 0.5 % [facility] Eosinophils Abs 0.0 0.0 - 0.4 x10(3)/[facility] Basophil % 0.4 % [facility] Baso Absolute 0.0 0.0 - 0.1 x10(3)/[facility] Immature Gran % 0.40 % [facility] Comment: Immature granulocytes(IG's)percentage and absolute count will include metamyelocytes, myelocytes, and promyelocytes. Blood smears from CBCs yielding IG's will be scanned manually for concordance. If this scan disagrees with the automated IG or if promyelocytes are noted, a manual differential will be performed. Immature Gran Absolute 0.03 0.00 - 0.04 x10(3)/[facility] Blood 05/22/2022 3:47 AM EDT 05/22/2022 4:15 AM EDT Narrative Resulting Agency Comment Spec In Lab Morales Armas MD HEMATOLOGY ORDERABLE S [facility] [place] [address] * (ABNORMAL) Hemogram (05/22/2022 3:47 AM EDT) White Blood Cell 7.3 4.0 - 9.5 x10(3)/mc L [facility] Red Blood Cell 2.93(L) 4.58 - 5.54 x10(6)/mc L [facility] Hemoglobin 7.6(L) 13.7 - 16.5 g/dL [facility] Hematocrit 24.3(L) 40.5 - 48.5 % [facility] Mean Cell Volume 82.9 82.9 - 93.1 fL [facility] Mean Cell Hemoglobin 25.9(L) 27.5 - 32.1 pg [facility] Mean Cell Hemoglobin Concentration 31.3(L) 32.0 - 35.7 g/dL [facility] Platelet 236 145 - 357 x10(3)/mc L [facility] RDW Standard Deviation 53.4(H) 36.0 - 45.0 fL [facility] [facility] RDW coefficient of variation 17.5(H) 11.4 - 13.8 % [facility] Mean Platelet Volume 8.6 7.6 - 12.9 fL [facility] NRBC% auto 0.0 % [facility] ITAL LABORATORY NRBC Absolute 0.000 0.000 - 0.000 x10(3)/mc L [facility] Blood 05/22/2022 3:47 AM EDT 05/22/2022 4:15 AM EDT Narrative Resulting Agency Comment Spec In Lab Morales Armas MD HEMATOLOGY ORDERABLE S [facility] [place] [address] * Basic Metabolic Panel (non-fasting) (05/22/2022 3:47 AM EDT) Glucose 101 65 - 199 mg/dL [facility] Comment:Diabetes: >=200 mg/d L plus symptoms Blood Urea Nitrogen 14 10 - 20 mg/dL [facility] Comment:result rechecked-bm Creatinine 0.90 0.80 - 1.50 mg/dL [facility] Sodium 137 135 - 145 mmol/L [facility] Potassium 3.8 3.5 - 5.0 mmol/L [facility] Comment: Please note: ??Patients with WBC >100,000 may have falsely elevated Potassium levels. ??For accurate Potassium quantification in these patients send serum separator tube (gold top) for subsequent determinations. ??Contact the Clinical Chemistry Laboratory if there are any questions. Chloride 102 98 - 107 mmol/L [facility] Carbon Dioxide 26 22 - 31 mmol/L [facility] Anion Gap 9 5 - 15 mmol/L [facility] Calcium 8.5 8.5 - 10.5 mg/dL [facility] Est Glomerular Filtration Rate 91 >=60 mL/min/1. 73 m?? [facility] Comment: This patient's estimated [...] CHEMISTRY ORDERA BLES Performing Organization Address City/[facility]/ZIP Co de Phone Number [facility] [place] [address] * EKG 12 Lead (05/21/2022 7:36 AM EDT) Ventricular rate 118 BPM MUSE SYSTEM Atrial Rate 118 BPM MUSE SYSTEM P-R Interval 216 ms MUSE SYSTEM QRS Duration 106 ms MUSE SYSTEM Q-T Interval 324 ms MUSE SYSTEM QTC Calculated (Bezet) 454 ms MUSE SYSTEM Calculated R [place] 82 degrees MUSE SYSTEM Calculated T [place] -102 degrees MUSE SYSTEM INTERPRETATION Sinus tachycardia [...] Foster MD ECG ORDERABLES Performing Organization Address City/[facility]/ZIP Co de Phone Number MUSE SYSTEM * Differential, Automated (05/21/2022 4:09 AM EDT) Neutrophil % 72.4 % [facility] Neutrophil Absolute 4.83 1.70 - 6.10 x10(3)/[facility] LABORATORY Lymph % 14.5 % [facility] Lymphocytes Abs 1.0 0.9 - 3.2 x10(3)/[facility] LABORATORY Monocyte % 12.3 % [facility] Monocyte Abs 0.8 0.3 - 0.9 x10(3)/[facility] LABORATORY Eos % 0.1 % [facility] Eosinophils Abs 0.0 0.0 - 0.4 x10(3)/[facility] LABORATORY Basophil % 0.4 % [facility] Baso Absolute 0.0 0.0 - 0.1 x10(3)/[facility] LABORATORY Immature Gran % 0.30 % [facility] Comment: Immature granulocytes(IG's)percentage and absolute count will include metamyelocytes, myelocytes, and promyelocytes. Blood smears from CBCs yielding IG's will be scanned manually for concordance. If this scan disagrees with the automated IG or if promyelocytes are noted, a manual differential will be performed. Immature Gran Absolute 0.02 0.00 - 0.04 x10(3)/[facility] LABORATORY Blood 05/21/2022 4:09 AM EDT 05/21/2022 5:00 AM EDT Narrative Resulting Agency Comment Spec In Lab Morales Armas MD HEMATOLOGY ORDERABLE S [facility] [place] [address] * (ABNORMAL) Hemogram (05/21/2022 4:09 AM EDT) White Blood Cell 6.7 4.0 - 9.5 x10(3)/mc L [facility] Red Blood Cell 3.01(L) 4.58 - 5.54 x10(6)/mc L [facility] Hemoglobin 7.9(L) 13.7 - 16.5 g/dL [facility] Hematocrit 25.6(L) 40.5 - 48.5 % [facility] Mean Cell Volume 85.0 82.9 - 93.1 fL [facility] Mean Cell Hemoglobin 26.2(L) 27.5 - 32.1 pg [facility] Mean Cell Hemoglobin Concentration 30.9(L) 32.0 - 35.7 g/dL [facility] Platelet 226 145 - 357 x10(3)/mc L [facility] RDW Standard Deviation 53.6(H) 36.0 - 45.0 fL [facility] RDW coefficient of variation 17.3(H) 11.4 - 13.8 % [facility] Mean Platelet Volume 9.1 7.6 - 12.9 fL [facility] NRBC% auto 0.0 % [facility] ITAL LABORATORY NRBC Absolute 0.000 0.000 - 0.000 x10(3)/mc L [facility] Blood 05/21/2022 4:09 AM EDT 05/21/2022 5:00 AM EDT Narrative Resulting Agency Comment Spec In Lab Morales Armas MD HEMATOLOGY ORDERABLE S Performing Organization Address City/State/[facility] Co de Phone Number [facility] [place] [address] * (ABNORMAL) Basic Metabolic Panel (non-fasting) (05/21/2022 4:09 AM EDT) Glucose 84 65 - 199 mg/dL [facility] Comment:Diabetes: >=200 mg/d L plus symptoms Blood Urea Nitrogen 7(L) 10 - 20 mg/dL [facility] Creatinine 0.71(L) 0.80 - 1.50 mg/dL [facility] Sodium 137 135 - 145 mmol/L [facility] Potassium 3.5 3.5 - 5.0 mmol/L [facility] Comment: Please note: ??Patients with WBC >100,000 may have falsely elevated Potassium levels. ??For accurate Potassium quantification in these patients send serum separator tube (gold top) for subsequent determinations. ??Contact the Clinical Chemistry Laboratory if there are any questions. Chloride 103 98 - 107 mmol/L [facility] Carbon Dioxide 27 22 - 31 mmol/L [facility] Anion Gap 7 5 - 15 mmol/L [facility] Calcium 8.7 8.5 - 10.5 mg/dL [facility] Est Glomerular Filtration Rate 97 >=60 mL/min/1. 73 m?? [facility] Comment: This patient's estimated GFR [...] Lab Gilmer Foster MD CHEMISTRY ORDERA BLES [facility] [place] [address] * Differential, Automated (05/20/2022 4:08 AM EDT) Neutrophil % 74.7 % [facility] Neutrophil Absolute 5.59 1.70 - 6.10 x10(3)/[facility] LABORATORY Lymph % 12.6 % [facility] Lymphocytes Abs 0.9 0.9 - 3.2 x10(3)/[facility] LABORATORY Monocyte % 11.9 % [facility] Monocyte Abs 0.9 0.3 - 0.9 x10(3)/[facility] LABORATORY Eos % 0.0 % [facility] Eosinophils Abs 0.0 0.0 - 0.4 x10(3)/[facility] LABORATORY Basophil % 0.3 % [facility] Baso Absolute 0.0 0.0 - 0.1 x10(3)/[facility] LABORATORY Immature Gran % 0.50 % [facility] Comment: Immature granulocytes(IG's)percentage and absolute count will include metamyelocytes, myelocytes, and promyelocytes. Blood smears from CBCs yielding IG's will be scanned manually for concordance. If this scan disagrees with the automated IG or if promyelocytes are noted, a manual differential will be performed. Immature Gran Absolute 0.04 0.00 - 0.04 x10(3)/mcL [facility] Blood 05/20/2022 4:08 AM EDT 05/20/2022 4:48 AM EDT Narrative Resulting Agency Comment Spec In Lab Morales Armas MD HEMATOLOGY ORDERABLE S [facility] [place] [address] * (ABNORMAL) Hemogram (05/20/2022 4:08 AM EDT) White Blood Cell 7.5 4.0 - 9.5 x10(3)/mc L [facility] Red Blood Cell 3.07(L) 4.58 - 5.54 x10(6)/mc L [facility] Hemoglobin 8.0(L) 13.7 - 16.5 g/dL [facility] Hematocrit 25.9(L) 40.5 - 48.5 % [facility] Mean Cell Volume 84.4 82.9 - 93.1 fL [facility] Mean Cell Hemoglobin 26.1(L) 27.5 - 32.1 pg [facility] Mean Cell Hemoglobin Concentration 30.9(L) 32.0 - 35.7 g/dL [facility] Platelet 207 145 - 357 x10(3)/mc L [facility] RDW Standard Deviation 53.7(H) 36.0 - 45.0 fL [facility] RDW coefficient of variation 17.4(H) 11.4 - 13.8 % [facility] Mean Platelet Volume 8.7 7.6 - 12.9 fL [facility] NRBC% auto 0.0 % [facility] NRBC Absolute 0.000 0.000 - 0.000 x10(3)/mc L [facility] Blood 05/20/2022 4:08 AM EDT 05/20/2022 4:48 AM EDT Narrative Resulting Agency Comment Spec In Lab Morales Armas MD HEMATOLOGY ORDERABLE S [facility] [place] [address] * (ABNORMAL) Basic Metabolic Panel (non-fasting) (05/20/2022 4:08 AM EDT) Glucose 99 65 - 199 mg/dL [facility] Comment:Diabetes: >=200 mg/d L plus symptoms Blood Urea Nitrogen 11 10 - 20 mg/dL [facility] Creatinine 0.79(L) 0.80 - 1.50 mg/dL [facility] Sodium 133(L) 135 - 145 mmol/L [facility] Potassium 3.8 3.5 - 5.0 mmol/L [facility] Comment: Please note: ??Patients with WBC >100,000 may have falsely elevated Potassium levels. ??For accurate Potassium quantification in these patients send serum separator tube (gold top) for subsequent determinations. ??Contact the Clinical Chemistry Laboratory if there are any questions. Chloride 102 98 - 107 mmol/L [facility] Carbon Dioxide 23 22 - 31 mmol/L [facility] Anion Gap 8 5 - 15 mmol/L [facility] Calcium 8.3(L) 8.5 - 10.5 mg/dL [facility] Est Glomerular Filtration Rate 94 >=60 mL/min/1. 73 m?? [facility] Comment: This patient's estimated GFR [...] Lab Gilmer Foster MD CHEMISTRY ORDERA BLES [facility] [place] [address] * XR Chest PA & Lateral (Generic) [...] who have questions please contact the health prompt care rn that requested your imaging first. ? [...] patients who have questions please contactthe health prompt care rn that requested your imaging first. Electronically signed by: Savanah Suazo MD, [facility] ([phone]), at 05/19/2022 11:16 AM Gilmer Foster MD IMG DX ORDERABLE S * (ABNORMAL) Differential, Automated (05/19/2022 3:31 AM EST) Neutrophil % 80.9 % [facility] Neutrophil Absolute 8.95(H) 1.70 - 6.10 x10(3)/mc L [facility] Lymph % 9.3 % [facility] Lymphocytes Abs 1.0 0.9 - 3.2 x10(3)/ L [facility] Monocyte % 9.2 % [facility] Monocyte Abs 1.0(H) 0.3 - 0.9 x10(3)/mc L [facility] Eos % 0.0 % [facility] Eosinophils Abs 0.0 0.0 - 0.4 x10(3)/mc L [facility] Basophil % 0.1 % [facility] Baso Absolute 0.0 0.0 - 0.1 x10(3)/mc L [facility] Immature Gran % 0.50 % [facility] Comment: Immature granulocytes(IG's)percentage and absolute count will include metamyelocytes, myelocytes, and promyelocytes. Blood smears from CBCs yielding IG's will be scanned manually for concordance. If this scan disagrees with the automated IG or if promyelocytes are noted, a manual differential will be performed. Immature Gran Absolute 0.05(H) 0.00 - 0.04 x10(3)/mc L [facility] Blood 05/19/2022 3:31 AM EST 05/19/2022 3:56 AM EST Narrative Resulting Agency Comment Spec In Lab Morales Armas MD HEMATOLOGY ORDERABLE S [facility] [place] [address] * (ABNORMAL) Hemogram (05/19/2022 3:31 AM EST) White Blood Cell 11.1(H) 4.0 - 9.5 x10(3)/mc L [facility] Red Blood Cell 3.23(L) 4.58 - 5.54 x10(6)/mc L [facility] Hemoglobin 8.5(L) 13.7 - 16.5 g/dL [facility] Hematocrit 26.8(L) 40.5 - 48.5 % [facility] Mean Cell Volume 83.0 82.9 - 93.1 fL [facility] Mean Cell Hemoglobin 26.3(L) 27.5 - 32.1 pg [facility] Mean Cell Hemoglobin Concentration 31.7(L) 32.0 - 35.7 g/dL [facility] Platelet 245 145 - 357 x10(3)/mc L [facility] RDW Standard Deviation 52.6(H) 36.0 - 45.0 fL [facility] RDW coefficient of variation 17.3(H) 11.4 - 13.8 % [facility] Mean Platelet Volume 8.4 7.6 - 12.9 fL [facility] NRBC% auto 0.0 % [facility]ORAT[facility] NRBC Absolute 0.000 0.000 - 0.000 x10(3)/ L [facility] Blood 05/19/2022 3:31 AM EST 05/19/2022 3:56 AM EST Narrative Resulting Agency Comment Spec In Lab Morales Armas MD HEMATOLOGY ORDERABLE S [facility] [place] [address] * Basic Metabolic Panel (non-fasting) (05/19/2022 3:31 AM EST) Glucose 111 65 - 199 mg/dL [facility] Comment:Diabetes: >=200 mg/d L plus symptoms Blood Urea Nitrogen 13 10 - 20 mg/dL [facility] Creatinine 0.93 0.80 - 1.50 mg/dL [facility] Sodium 135 135 - 145 mmol/L [facility] Potassium 4.8 3.5 - 5.0 mmol/L [facility] Comment: Please note: ??Patients with WBC >100,000 may have falsely elevated Potassium levels. ??For accurate Potassium quantification in these patients send serum separator tube (gold top) for subsequent determinations. ??Contact the Clinical Chemistry Laboratory if there are any questions. Chloride 102 98 - 107 mmol/L [facility] Carbon Dioxide 24 22 - 31 mmol/L [facility] Anion Gap 9 5 - 15 mmol/L [facility] Calcium 8.5 8.5 - 10.5 mg/dL [facility] Est Glomerular Filtration Rate 87 >=60 mL/min/1. 73 m?? [facility] Comment: This patient's estimated GFR [...] In Lab Gilmer Foster MD CHEMISTRY ORDERA [facility] [place] [address] * XR Chest One [place] (05/18/2022 4:01 [...] who have questions please contact the health prompt care rn that requested your imaging first. ? Electronically signed by: Maryann Magallanes MD, [facility] ([phone]), at 05/18/2022 4:02 PM Narrative 05/18/2022 4:02 [...] patients who have questions please contactthe health prompt care rn that requested your imaging first. Electronically signed by: Maryann Magallanes MD, [facility]([phone]), at 05/18/2022 4:02 PM Gilmer Foster MD IMG DX ORDERABLE S * (ABNORMAL) Differential, Automated (05/18/2022 2:18 PM EST) Pathologist [facility] Neutrophil % 85.2 % [facility] Neutrophil Absolute 9.74(H) 1.70 - 6.10 x10(3)/mc L [facility] Lymph % 7.3 % [facility] Lymphocytes Abs 0.8(L) 0.9 - 3.2 x10(3)/mc L [facility] Monocyte % 6.8 % [facility] Monocyte Abs 0.8 0.3 - 0.9 x10(3)/mc L [facility] Eos % 0.2 % [facility] Eosinophils Abs 0.0 0.0 - 0.4 x10(3)/mc L [facility] Basophil % 0.2 % [facility] Baso Absolute 0.0 0.0 - 0.1 x10(3)/mc L [facility] Immature Gran % 0.30 % [facility] Comment: Immature granulocytes(IG's)percentage and absolute count will include metamyelocytes, myelocytes, and promyelocytes. Blood smears from CBCs yielding IG's will be scanned manually for concordance. If this scan disagrees with the automated IG or if promyelocytes are noted, a manual differential will be performed. Immature Gran Absolute 0.04 0.00 - 0.04 x10(3)/mc L [facility] Blood 05/18/2022 2:18 PM EST 05/18/2022 2:30 PM EST Narrative Resulting Agency Comment Spec In Lab Morales Armas MD HEMATOLOGY ORDERABLE S [facility] [place] [address] * (ABNORMAL) Hemogram (05/18/2022 2:18 PM EST) White Blood Cell 11.4(H) 4.0 - 9.5 x10(3)/mc L [facility] Red Blood Cell 3.19(L) 4.58 - 5.54 x10(6)/mc L [facility] Hemoglobin 8.4(L) 13.7 - 16.5 g/dL [facility] Hematocrit 26.5(L) 40.5 - 48.5 % [facility] Mean Cell Volume 83.1 82.9 - 93.1 fL [facility] Mean Cell Hemoglobin 26.3(L) 27.5 - 32.1 pg [facility] Mean Cell Hemoglobin Concentration 31.7(L) 32.0 - 35.7 g/dL [facility] Platelet 289 145 - 357 x10(3)/mc L [facility] RDW Standard Deviation 52.3(H) 36.0 - 45.0 fL [facility] RDW coefficient of variation 17.2(H) 11.4 - 13.8 % [facility] Mean Platelet Volume 8.4 7.6 - 12.9 fL [facility] NRBC% auto 0.0 % [facility] NRBC Absolute 0.000 0.000 - 0.000 x10(3)/mc L [facility] Blood 05/18/2022 2:18 PM EST 05/18/2022 2:30 PM EST Narrative Resulting Agency Comment Spec In Lab Morales Armas MD HEMATOLOGY ORDERABLE S [facility] [place] [address] * (ABNORMAL) Basic Metabolic Panel (non-fasting) (05/18/2022 2:18 PM EST) Glucose 117 65 - 199 mg/dL [facility] Comment:Diabetes: >=200 mg/d L plus symptoms Blood Urea Nitrogen 15 10 - 20 mg/dL [facility] Creatinine 0.96 0.80 - 1.50 mg/dL [facility] Sodium 138 135 - 145 mmol/L [facility] Potassium 4.4 3.5 - 5.0 mmol/L [facility] Comment: Please note: ??Patients with WBC >100,000 may have falsely elevated Potassium levels. ??For accurate Potassium quantification in these patients send serum separator tube (gold top) for subsequent determinations. ??Contact the Clinical Chemistry Laboratory if there are any questions. Chloride 106 98 - 107 mmol/L [facility] Carbon Dioxide 22 22 - 31 mmol/L [facility] Anion Gap 10 5 - 15 mmol/L [facility] Calcium 8.3(L) 8.5 - 10.5 mg/dL [facility] Est Glomerular Filtration Rate 84 >=60 mL/min/1. 73 m?? [facility] Comment: This patient's estimated GFR [...] CHEMISTRY ORDERA BLES Performing Organization Address City/[facility]/ZIP Co de Phone Number [facility] [place] [address] * Type and Screen Validity (05/18/2022 1:37 PM EST) T&S only valid at [facility] Comment:This Type and Screen result is only valid at the [facility] Blood 05/18/2022 1:37 PM EST 05/18/2022 1:48 PM EST Narrative Resulting Agency Comment Spec In Lab Gilmer Foster MD BLOOD BANK LAB O RDERABLES Performing Organization Address City/[facility]/ZIP Co de Phone Number [facility] [place] [address] * ABORH Recheck Status (05/18/2022 1:37 PM EST) ABORH Recheck Order Order Placed [facility] ABORH Type Recheck Complete [facility] Blood 05/18/2022 1:37 PM EST 05/18/2022 1:48 PM EST Narrative Resulting Agency Comment Spec In Lab Gilmer Foster MD BLOOD BANK LAB O RDERABLES Performing Organization Address City/[facility]/ZIP Co de Phone Number [facility] [place] [address] * Antibody screen (05/18/2022 1:37 PM EST) Ab Screen Interp Negative [facility] Expires at [id number] on: 05/21/2022 [facility] Blood 05/18/2022 1:37 PM EST 05/18/2022 1:48 PM EST Narrative Resulting Agency Comment Spec In Lab Gilmer Foster MD BLOOD BANK LAB O RDERABLES Performing Organization Address City/[facility]/ZIP Co de Phone Number [facility] [place] [address] * ABO/Rh Typing (05/18/2022 1:37 PM EST) ABORH Type A Pos [facility] Blood 05/18/2022 1:37 PM EST 05/18/2022 1:48 PM EST Narrative Resulting Agency Comment Spec In Lab Gilmer Foster MD BLOOD BANK LAB O RDERABLES Performing Organization Address City/[facility] Co de Phone Number [facility] [place] [address] * (ABNORMAL) BLOOD GAS 2 ARTERIAL (05/18/2022 12:41 PM EST) pH, Arterial 7.34(L) 7.35 - 7.45 [facility] PCO2, Arterial 42 35 - 45 mmHg [facility] PO2, Arterial 290(H) 85 - 104 mmHg [facility] Bicarbonate, Arterial 22.2 20.0 - 26.0 mmol/L [facility] Base Excess, Arterial -3.5(L) -3.0 - 3.0 mmol/L [facility] Hgb Blood Gas 9.2(L) 13.7 - 16.5 g/dL [facility] Oxyhemoglobin, Arterial 98.5(H) 94.0 - 97.0 % [facility] Carboxyhemoglob in, Arterial 1.2 % [facility] Comment: Nonsmokers: 0.5-1.5% COHB Smokers: Variable, but usually less than 10% Toxic: 20-30% COHB Lethal: Greater than 60% COHB Methemoglobin, Arterial 0.3 <=1.5 % [facility] Na Whole Blood 133(L) 135 - 145 mmol/L [facility] K Whole Blood 4.2 3.5 - 5.0 mmol/L [facility] Comment: Please note: Patients with WBC >100,000 may have falsely elevated Potassium levels. Contact the Clinical Chemistry Laboratory if there are any questions. ICa Whole Blood 1.16 1.15 - 1.33 mmol/L [facility] Comment: Note: ??Total bilirubin higher than 20 mg/dL may lead to falsely low ionized calcium. CL Whole Blood 104 98 - 107 mmol/L [facility] Gluc Whole Bld 130 65 - 199 mg/dL [facility] Comment:Diabetes: >=200 mg/d L plus symptoms. Lactate WB 1.0 0.5 - 2.2 mmol/L [facility] FIO2 Art 50 % [facility] Flow Art 1.0 LPM [facility] PF Ratio Art 580 [facility] Blood 05/18/2022 12:4 1 PM EST 05/18/2022 12:41 PM EST Gilmer Foster MD POINT OF CARE TE ORDERABLES [facility] [place] [address] * Specimen to Pathology (05/18/2022 11:21 AM EST) AP Specimen 05/18/2022 11:2 1 AM EST 05/18/2022 11:21 AM EST Narrative [facility] - 05/18/2022 11:21 AM EST Specimen requisition ordered. ??Separate Pathology report to follow Gilmer Foster MD PATHOLOGY/CYTOLO GY ORDERABLES [facility] [place] [address] * Specimen to Pathology (05/18/2022 10:56 AM EST) AP Specimen 05/18/2022 10:5 6 AM EST 05/18/2022 10:56 AM EST Narrative [facility] - 05/18/2022 10:56 AM EST Specimen requisition ordered. ??Separate Pathology report to follow Gilmer Foster MD PATHOLOGY/CYTOLO GY ORDERABLES [facility] [place] [address] * Specimen to Pathology (05/18/2022 10:37 AM EST) AP Specimen 05/18/2022 10:3 7 AM EST 05/18/2022 10:37 AM EST Narrative [facility] - 05/18/2022 10:37 AM EST Specimen requisition ordered. ??Separate Pathology report to follow Gilmer Foster MD PATHOLOGY/CYTOLO GY ORDERABLES Performing Organization Address City/[facility]/ZIP Co de Phone Number [facility] [place] [address] * Specimen to Pathology (05/18/2022 10:36 AM EST) AP Specimen 05/18/2022 10:3 6 AM EST 05/18/2022 10:36 AM EST Narrative [facility] - 05/18/2022 10:36 AM EST Specimen requisition ordered. ??Separate Pathology report to follow Gilmer Foster MD PATHOLOGY/CYTOLO GY ORDERABLES Performing Organization Address City/[facility]/ZIP Co de Phone Number [facility] [place] [address] * Specimen to Pathology (05/18/2022 10:36 AM EST) AP Specimen 05/18/2022 10:3 6 AM EST 05/18/2022 10:36 AM EST Narrative [facility] - 05/18/2022 10:36 AM EST Specimen requisition ordered. ??Separate Pathology report to follow Gilmer Foster MD PATHOLOGY/CYTOLO GY ORDERABLES Performing Organization Address [facility] [facility] Co de Phone Number [facility] [place] [address] * Anaerobic Culture (05/18/2022 10:35 AM EST) Anaerobic Culture No anaerobic organisms isolated [facility] Lung 05/18/2022 10:3 5 AM EST 05/18/2022 2:17 PM EST Comment:Left pleural grumous Narrative Resulting Agency Comment Spec In Lab Gilmer Foster MD MICROBIOLOGY - G ENERAL ORDERABLES Performing Organization Address [facility] [place] [address] * Tissue culture (05/18/2022 10:35 AM EST) Tissue Culture No growth [facility] Gram Stain Few Neutrophils seen No microorganisms seen. [facility] Lung 05/18/2022 10:3 5 AM EST 05/18/2022 2:17 PM EST Comment:Left pleural grumous Narrative Resulting Agency Comment Spec In Lab Gilmer Foster MD MICROBIOLOGY - G ENERAL ORDERABLES Performing Organization Address [facility] de Phone Number [facility] [place] [address] * Surgical Pathology Report (05/18/2022 10:19 AM EST) Final Diagnosis [id number] ? Location: [id number]; 0326; B The signing [...] Soriano Verified: ??06/04/2022 14:52 ??Pathologist Performed at: ??-[facility] Dept. of Pathology, [place] [address] Brim Raiser: Maria Ines Marrufo MD, FCAP, ??CLIA Certificate: [id number] SPECIMEN(S) SUBMITTED A - Left pleural rind, [...] tissue is submitted for frozen section: A1. Ethnology Professor sections in 3 cassettes as follows: ?A1: ??Frozen section remnant ?A2-A3: ??Ethnology Professor sections B - Labeled/Fixative: Left pleural grumous, fresh. Quantity/Size: Fragments, 7.0 x 5.0 x 1.0 cm in aggregate. Tissue Description: Multiple soft rubbery fragments of white tissue. Sections/Processin g: Ethnology Professor sections in 2 cassettes labeled B1-B2. C - Labeled/Fixative: Visceral pleural rind. Frozen, fresh for frozen section. Quantity/Size: Single, 2.7 x 1.9 x 0.2 cm. Tissue Description: Serrato-white membranous soft tissue. Sections/Processin g: The following tissue is submitted for frozen section: C1. Ethnology Professor sections in 2 cassettes as follows: ?C1: ??Frozen section remnant ?C2: ??Ethnology Professor sections D - Labeled/Fixative: Fragments of rib, fresh. Quantity/Size: Fragments, 9.0 x 9.0 x 2.0 cm in aggregate. Tissue Description: Multiple fragments of rib and surrounding connective tissue. Sections/Processin g: Blocks submitted for decalcification: D1. Ethnology Professor sections in 1 cassette labeled D1. E - Labeled/Fixative: Left parietal pleural rind, fresh. Quantity/Size: Fragments, 12.5 x 12.5 x 2.0 cm in aggregate. Tissue Description: Multiple fragments of firm rubbery serrato-white tissue with surrounding adipose tissue. Sections/Processin g: Ethnology Professor sections in 2 cassettes labeled E1-E2. F - Labeled/Fixative: Left visceral pleural rind, fresh. Quantity/Size: Fragments, 9.0 x 5.0 x 2.0 cm in aggregate. Tissue Description: Fragments of firm rubbery serrato-white tissue. Sections/Processin g: Ethnology Professor sections in 2 cassettes labeled F1-F2. ??jnk ?Frozen Section FROZEN SECTION DIAGNOSIS CFS - VISCERAL PLEURAL RIND. FROZEN, excision ?for frozen section Inflamed ??pleura, no evidence of malignancy (artists' booking representative sample) 05/18/22 11:27 Electronically signed by: ?Malia Lacy MD Verified: ??05/18/2022 11:29 ??Pathologist Performed at: ??-[facility] Dept. of Pathology, [place] [address] Brim Raiser: Maria Ines Marrufo MD, FCAP, ??CLIA Certificate: [id number] This intraoperative consultation should be interpreted as [...] MD Verified: ??05/18/2022 11:25 ??Pathologist Performed at: ??-[facility] Dept. of Pathology, [place] [address] Brim Raiser: Maria Ines Marrufo MD, FCAP, ??CLIA Certificate: [id number] This intraoperative consultation should be interpreted as a preliminary diagnosis pending review of the entire specimen and special studies, if any. A final Surgical Pathology report will follow this preliminary Frozen Section report(s). 06/04/2022 2:52 PM EDT [facility] Frozen Specimen 05/18/2022 1 [...] EST Gilmer Foster MD PATHOLOGY/CYTOLO GY ORDERABLES [facility] [place] [id number] [facility] [place] [address] * Specimen to Pathology (05/18/2022 10:19 AM EST) AP Specimen 05/18/2022 10:1 9 AM EST 05/18/2022 10:19 AM EST Narrative [facility] - 05/18/2022 10:19 AM EST Specimen requisition ordered. ??Separate Pathology report to follow Gilmer Foster MD PATHOLOGY/CYTOLO GY ORDERABLES [facility] [place] [address] * (ABNORMAL) BLOOD GAS 2 ARTERIAL (05/18/2022 10:17 AM EST) pH, Arterial 7.36 7.35 - 7.45 [facility] PCO2, Arterial 42 35 - 45 mmHg [facility] PO2, Arterial 226(H) 85 - 104 mmHg [facility] Bicarbonate, Arterial 22.9 20.0 - 26.0 mmol/L [facility] Base Excess, Arterial -2.6 -3.0 - 3.0 mmol/L [facility] Hgb Blood Gas 9.5(L) 13.7 - 16.5 g/dL [facility] Oxyhemoglobin, Arterial 98.5(H) 94.0 - 97.0 % [facility] Carboxyhemoglob in, Arterial 1.0 % [facility] Comment: Nonsmokers: 0.5-1.5% COHB Smokers: Variable, but usually less than 10% Toxic: 20-30% COHB Lethal: Greater than 60% COHB Methemoglobin, Arterial 0.3 <=1.5 % [facility] Na Whole Blood 133(L) 135 - 145 mmol/L [facility] K Whole Blood 3.8 3.5 - 5.0 mmol/L [facility] Comment: Please note: Patients with WBC >100,000 may have falsely elevated Potassium levels. Contact the Clinical Chemistry Laboratory if there are any questions. ICa Whole Blood 1.18 1.15 - 1.33 mmol/L [facility] Comment: Note: ??Total bilirubin higher than 20 mg/dL may lead to falsely low ionized calcium. CL Whole Blood 104 98 - 107 mmol/L [facility] Gluc Whole Bld 107 65 - 199 mg/dL [facility] Comment:Diabetes: >=200 mg/d L plus symptoms. Lactate WB 1.5 0.5 - 2.2 mmol/L [facility] Blood 05/18/2022 10:1 7 AM EST 05/18/2022 10:17 AM EST Gilmer Foster MD POINT OF CARE TE ST ORDERABLES Performing Organization Address [facility] de Phone Number [facility] [place] [address] * XR Fluoro No Rad <1Hr - [...] (Bezet) 492 ms MUSE SYSTEM Calculated P [place] 106 degrees MUSE SYSTEM Calculated R [place] 71 degrees MUSE SYSTEM Calculated T [place] -169 degrees MUSE SYSTEM INTERPRETATION Atrial flutter Non-specific intra-ventricular conduction delay Minimal voltage criteria for LVH, may be normal variant ( [place] product ) Nonspecific ST and T wave abnormality Abnormal ECG When compared with ECG of 21-FEB-2022 06:21, No significant change was found I personally reviewed the tracing and edited the fellows interpretation Confirmed by fellow Rudi Guzmán ([id number]) on 05/21/2022 4:25:34 AM Confirmed by MD RUST SALVATORE ([id number]) on 05/21/2022 10:56:00 AM MUSE SYSTEM 05/18/2022 8:00 AM EST 05/21/2022 10:56 AM EDT Gilmer Foster MD ECG ORDERABLES MUSE SYSTEM * POCT Glucose (05/18/2022 7:29 AM EST) Glucose, POC 93 65 - 199 mg/dL [facility] Comment: Supplemental ranges: <140 mg/dL before meals <180 mg/dL all other times of the day Blood 05/18/2022 7:29 AM EST 05/18/2022 7:29 AM EST Gilmer Foster MD POINT OF CARE TE ST ORDERABLES [facility] [place] [address] documented in this encounter Visit Diagnoses Diagnosis [...] subcutaneous injection 5,000 Units 5,000 Units, Subcutaneous, ARTIST RELATIONSHIP MANAGER TO O.R., 1 dose, On Sat05/18/22 at [...] Unit) documented in this encounter Care Teams Incident Response Engineer Relationship Specialty Start Date End Date Tami Olivia [address] [place] [address] PCP - General Family Medicine 12/30/20 documented as of this encounter
--- OUTSIDE RECORDS SUMMARY | 2023-12-31 22:47 | XMS_ITS | Encounter Summary ---
Author Organization [facility] Address [facility] [place] [address] Care Team Providers Care Director Process Improvement Name Role Phone AldairKarleeTami Primary Care Provider [phone] Encounter Details Date Type Department Care Team (Latest Contact Info) Description 03/06/2022 11:37 AM EST - 03/06/2022 11:59 PM [facility] Hospital Encounter XRay at [address] [place] [address] Squamous cell carcinoma of left lung Discharge [...] Take 150 mg by mouth daily. 12/16/2023 omeprazole (PriLOSEC) 20 mg Capsule, Delayed Release(E.C.) Take 20 mg by mouth daily. 03/12/2018 05/17/2022 albuterol sulfate (Proair Digihaler) 90 mcg/actuation aero powdr breath act w/sensor 4 times daily as needed. 12/16/2023 documented as of this encounter Plan of Treatment Upcoming Encounters Date Type Department Care Team (Late st Contact Info) Description 01/20/2024 10:40 AM EST Office Visit Cardiology at [address] [phone] Chrissy Zepeda, [facility] [place] [address] Scheduled Procedures Name Priority Associated Diagnoses Date/Ti [...] have questions please contact the health career center director that requested your imaging first. ? Electronically signed by: Marcus Edwards MD, [facility] ([phone]), at 03/06/2022 2:27 PM Narrative 03/06/2022 2:27 [...] who have questions please contactthe health career center director that requested your imaging first. Electronically signed by: Marcus Edwards MD, [facility]([phone]), at 03/06/2022 2:27 PM Gilmer Gutiérrez MD IMG DX ORDERABLE S documented in this encounter Visit Diagnoses Diagnosis Squamous cell carcinoma of left lung documented in this encounter Care Teams Director Process Improvement Relationship Specialty Start Date End Date Tami Olivia [address] [place] [address] PCP - General Family Medicine 12/30/20 documented as of this encounter
--- OUTSIDE RECORDS SUMMARY | 2023-12-31 22:47 | XMS_ITS | Encounter Summary ---
Author Organization [facility] Address [facility] [place] [address] Care Team Providers Care Scouring Train Operator Chief Name Role Phone Tami Olivia Primary Care Provider [phone] Encounter Details Date Type Department Care Team (Late st Contact Info) Description 04/24/2022 Orders Only [place] [phone] MD [facility] [place] [address] Status post lobectomy of lung Social History [...] AM EST Office Visit Cardiology at [address] [id number] Chrissy Zepeda APRN [facility] [address] Scheduled Procedures Name Priority Associated Diagnoses Date/Ti me CARDIOVERSION-ELECTIVE (WRVU 2) atrial flutter ELECTROPHYSIOLOGY PROCEDURE Persistent atrial fibrillation CARDIOVERSION-ELECTIVE (WRVU 2) persistent atrial fibrillation TRANSESOPHAGEAL ECHOCARDIOGR AM (WRVU 2.3) persistent atrial fibrillation documented as of this encounter Visit Diagnoses Diagnosis Status post lobectomy of lung Other postprocedural status documented in this encounter Care Teams Scouring Train Operator Chief Relationship Specialty Start Date End Date Tami Olivia [address] [place] [address] PCP - General Family Medicine 12/30/20 documented as of this encounter
--- OUTSIDE RECORDS SUMMARY | 2023-12-31 22:47 | XMS_ITS | Encounter Summary ---
Author Organization [facility] Address [facility] [place] [address] Care Team Providers Care Cluster Bore Operator Name Role Phone Tami Olivia Primary Care Provider [phone] Encounter Details Date Type Department Care Team (Late st Contact Info) Description 05/15/2022 Telephone [address] [facility] [place] [phone] Megan Reza RN Social History Tobacco Use [...] AM EST Office Visit Cardiology at [address] [phone] Chrissy Zepeda, [facility] [place] [address] Scheduled Procedures Name Priority Associated Diagnoses Date/Ti me CARDIOVERSION-ELECTIVE (WRVU 2) atrial flutter ELECTROPHYSIOLOGY PROCEDURE Persistent atrial fibrillation CARDIOVERSION-ELECTIVE (WRVU 2) persistent atrial fibrillation TRANSESOPHAGEAL ECHOCARDIOGR AM (WRVU 2.3) persistent atrial fibrillation documented as of this encounter Visit Diagnoses Not on filedocumented in this encounter Care Teams Cluster Bore Operator Relationship Specialty Start Date End Date Tami Olivia [address] [place] [address] PCP - General Family Medicine 12/30/20 documented as of this encounter
--- OUTSIDE RECORDS SUMMARY | 2023-12-31 22:47 | XMS_ITS | Encounter Summary ---
Author Organization [facility] [place] [address] Care Team Providers Care Workers Compensation Analyst Name Role Phone Tami Olivia Primary Care Provider [phone] Encounter Details Date Type Department Care Team [...] 10:40 AM EST Office Visit Cardiology at [address] [phone] Chrissy Zepeda APRN [facility] [place] [address] Scheduled Procedures Name Priority Associated Diagnoses Date/Ti me CARDIOVERSION-ELECTIVE (WRVU 2) atrial flutter ELECTROPHYSIOLOGY PROCEDURE Persistent atrial fibrillation CARDIOVERSION-ELECTIVE (WRVU 2) persistent atrial fibrillation TRANSESOPHAGEAL ECHOCARDIOGR AM (WRVU 2.3) persistent atrial fibrillation documented as of this encounter Visit Diagnoses Not on filedocumented in this encounter Care Teams Workers Compensation Analyst Relationship Specialty Start Date End Date Tami Olivia [address] [place] [address] PCP - General Family Medicine 12/30/20 documented as of this encounter
--- OUTSIDE RECORDS SUMMARY | 2023-12-31 22:47 | XMS_ITS | Encounter Summary ---
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 Procedures PRO THORACOSCOPY SURG TOT PULM DECORT @ROBOT XI THORACOSCOPY,SURG; W TOTAL DECORTICATION (WRVU 29.13) Parth Foster MD [facility] [place] [address] [facility] Referral ID Status Reason Start Date Expiration Date Visits Re quested Visits Authorized [id number] 1 1 Encounter Details Date Type Department Care Team (Late st Contact Info) Description 05/18/2022 8:30 AM EST - 05/18/2022 2:15 PM EST [place] [address] Parth Foster MD [facility] [place] [address] @THORACOTOMY,DECORTICA TION, PULMONARY, TOTAL (WRVU 26.65) Social [...] Primary * Linda Mustafa PA - Physician Professor Of Music * Renu Donald PA - Physician Professor Of Music * Morales Armas MD - Resident Procedure: [...] Hospital Course: Rajan Marquez was admitted to [facility] on 05/18/2022 via the Same Day [...] have questions please contact the health hospice patient care secretary that requested your imaging first. Electronically signed by: Maryann Magallanes MD, [facility] ([phone]), at 05/18/2022 4:02 PM XR Chest PA & Lateral (Generic) (Exam End: 05/19/2022 11:06 AM) Impression Similar partially loculated moderate left hydropneumothorax. Thank you for letting us participate in the care of this patient. If you are a health care provider and have any questions regarding this report, please contact the number below. For patients who have questions please contact the health hospice patient care secretary that requested your imaging first. Electronically signed by: Savanah Suazo MD, [facility] ([phone]), at 05/19/2022 11:16 AM XR Chest PA [...] have questions please contact the health hospice patient care secretary that requested your imaging first. Electronically signed by: Philip Church MD, [facility] ([phone]), at 05/23/2022 7:33 AM XR Chest PA [...] have questions please contact the health hospice patient care secretary that requested your imaging first. Electronically signed by: Marcus Edwards MD, [facility] ([phone]), at 05/24/2022 8:58 AM XR Chest PA [...] have questions please contact the health hospice patient care secretary that requested your imaging first. Electronically signed by: Marcus Edwards MD, [facility] ([phone]), at 05/24/2022 10:06 AM Pending Studies and [...] a nurse in the Thoracic Clinic at [phone]. After hours or on weekends or holidays please call: [phone] and ask to speak to the Thoracic Surgeon commercial drone software developer. Exercise & Activity Level: As you recover [...] please call the thoracic surgery clinic at [phone]. Driving: No driving for 1 week or [...] the Thoracic Clinic or the Thoracic Surgeon commercial drone software developer after hours. Please take over the counter [...] Expires XR Chest PA & Lateral (Generic) [[id number] Custom] 06/07/2022 12/07/2022 Process Instructions: Scheduling Instructions: Questions: Reason for exam and clinical history: s/p left thoracotomy and decortication Clinical information / bryan questions for radiologist: eval for effusion and/or ptx Where will study be performed?: [facility] Radiology Portable exam?: Stat read required?: Date of injury if applicable: Requested Time: Referral to Pulmonary Rehab [SMB701 Custom] As directed Process Instructions: Scheduling Instructions: Questions: May include the following tests: Breathing Retraining: Diaphragmatic Techniques Provider Contact Information: Primary Care Provider: Tami Olivia [phone] Discharge References/Attachments: Discharge References/Attachments None For questions [...] a nurse in the Thoracic Clinic at [phone]. After hours or on weekends or holidays please call: [phone] and ask to speak to the Thoracic Surgeon commercial drone software developer. Exercise & Activity Level: As you recover [...] please call the thoracic surgery clinic at [phone]. Driving: No driving for 1 week or [...] the Thoracic Clinic or the Thoracic Surgeon commercial drone software developer after hours. Please take over the counter [...] cane for ~ 2 weeks. 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 Enjoys 4-wheeling, kayaking and [...] in reach and aware to call for field staff assistance with all mobility. Education: Pt educated on ther-ex, breathing, LUE precautions and sling use- and to wait for LUE activity and ROM progression until MD follow, and to have supervision of field staff or family for safetywith all mobility Assessment: Rajan Marquez was [facility] today [facility] Pt friendly and pleasant and was [...] and d/c planning. LUIS MIGUEL PEREZ, PT Pager:[phone] Physical Therapy Inpatient Rehabilitation Department * Radha [...] IR Thoracentesis Left 11/08/2021 Ramírez Ramirez MD [facility] INTERVENTIONL RAD ??? PRO BRONCHOSCOPY, DIAGNOSTIC N/A 03/29/2021 ?? BRONCHOSCOPY, DIAGNOSTIC (WRVU 2.78) performed by Parth Foster MD at [facility] MAIN OR ??? PRO BRONCHOSCOPY, DIAGNOSTIC N/A 02/08/2022 ?? BRONCHOSCOPY, DIAGNOSTIC (WRVU 2.78) performed by Parth Foster MD at [facility] OR ??? PRO BRONCHOSCOPY, DIAGNOSTIC N/A 05/18/2022 ?? BRONCHOSCOPY, DIAGNOSTIC (WRVU 2.53) performed by Parth Foster MD at [facility] OR ??? PRO DECORTICATION, PULMONARY, TOTAL Left 05/18/2022 ?? @THORACOTOMY,DECORTICATION, PULMONARY, TOTAL (WRVU 26.65) performed by Parth Foster MDat [facility] OR ? ? PRO INJECTION ANES AGENT &/ STEROID INTERCOSTAL NERVE SINGLE LEVEL Left 03/29/2021 ?? NERVE BLOCK, INTERCOSTAL NERVE (WRVU 1.18) performed by Parth Foster MD at [facility] MAIN OR ??? PRO RECONSTRUCT INJURED CHEST Left 05/18/2022 ?? @MAJOR RECONSTRUCTION, CHEST WALL (WRVU 22.51) performed by Parth Foster MD at [facility] MAIN OR ??? PRO THORACOSCOPY SURG LOBECTOMY Left 03/29/2021 ?? @THORACOSCOPY,SURGICAL,W\LOBECTOMY,TOTAL OR SEGMENTAL (WRVU 24.64) performed by Parth Foster MD at [facility] MAIN OR ??? PRO THORACOSCOPY WITH BIOPSY OF PLEURA Left 02/08/2022 ?? THORACOSCOPY; WITH BIOPSY(IES) OF PLEURA (WRVU 4.58) performed by Parth Foster MD at [facility] MAIN OR ??? PRO THORACOSCOPY WITH MEDIASTINAL AND REGIONAL LYMPHADENECTOMY ?? 03/29/2021 ?? @THORACOSCOPY, SURG; W/MEDIASTINAL& REGIONAL LYMPHADENECTOMY (WRVU 4.12) performed by Parth Foster MD at [facility] OR ??? PRO THORACOSCOPY WITH WEDGE RESECTION AND ANATOMIC LUNG RESECTN Left 03/29/2021 ?? @THORACOSCOPY, SURG; W/DX WEDGE RESC W/ANATOMIC LUNG RESC (WRVU 3) performed by Parth Foster MD at [facility] OR ? Social History: Patient [...] Total Minutes, Occupational Therapy: 25 (id [phone]) Pager: [phone] GRAEME Velasco 05/24/2022 Occupational Therapy Rehabilitation Department [...] a scribe for Dr. Molina. APMS Nurse: jO Don RN Attending Physician:: Katie Molina MD [...] cane for ~ 2 weeks. 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 Enjoys 4-wheeling, kayaking and yard work. Equipment [...] in reach and aware to call for field staff assistance with all mobility. Education: Pt educated on ther-ex, breathing, and to call for assistance with all mobility Assessment: Rajan Marquez was seen today [facility] Pt friendly and agreeable to mobilize with encouragement, but needs assistance with line and tube management and cues for safety. He may be getting chest tube d/c'd tomorrow. He is aware to callfor assistance with mobility, and field staff aware of his status. Expect d/c to [...] Code: functional mobility LUIS MIGUEL PEREZ, PT Pager:[phone] Physical Therapy Inpatient Rehabilitation Department * Messi [...] IR Thoracentesis Left 11/08/2021 ForRamírez caldera MD [facility] INTERVENTIONL RAD ??? PRO BRONCHOSCOPY, DIAGNOSTIC N/A 03/29/2021 ?? BRONCHOSCOPY, DIAGNOSTIC (WRVU 2.78) performed by Parth Foster MD at [facility] MAIN OR ??? PRO BRONCHOSCOPY, DIAGNOSTIC N/A 02/08/2022 ?? BRONCHOSCOPY, DIAGNOSTIC (WRVU 2.78) performed by Parth Foster MD at [facility] OR ??? PRO BRONCHOSCOPY, DIAGNOSTIC N/A 05/18/2022 ?? BRONCHOSCOPY, DIAGNOSTIC (WRVU 2.53) performed by Parth Foster MD at [facility] OR ??? PRO DECORTICATION, PULMONARY, TOTAL Left 05/18/2022 ?? @THORACOTOMY,DECORTICATION, PULMONARY, TOTAL (WRVU 26.65) performed by Parth Foster MDat [facility] OR ? ? PRO INJECTION ANES AGENT &/ STEROID INTERCOSTAL NERVE SINGLE LEVEL Left 03/29/2021 ?? NERVE BLOCK, INTERCOSTAL NERVE (WRVU 1.18) performed by Parth Foster MD at [facility] OR ??? PRO RECONSTRUCT INJURED CHEST Left 05/18/2022 ?? @MAJOR RECONSTRUCTION, CHEST WALL (WRVU 22.51) performed by Parth Foster MD at [facility] MAIN OR ??? PRO THORACOSCOPY SURG LOBECTOMY Left 03/29/2021 ?? @THORACOSCOPY,SURGICAL,W\LOBECTOMY,TOTAL OR SEGMENTAL (WRVU 24.64) performed by Parth Foster MD at [facility] MAIN OR ??? PRO THORACOSCOPY WITH BIOPSY OF PLEURA Left 02/08/2022 ?? THORACOSCOPY; WITH BIOPSY(IES) OF PLEURA (WRVU 4.58) performed by Parth Foster MD at [facility] MAIN OR ??? PRO THORACOSCOPY WITH MEDIASTINAL AND REGIONAL LYMPHADENECTOMY ?? 03/29/2021 ?? @THORACOSCOPY, SURG; W/MEDIASTINAL& REGIONAL LYMPHADENECTOMY (WRVU 4.12) performed by Parth Foster MD at [facility] MAIN OR ??? PRO THORACOSCOPY WITH WEDGE RESECTION AND ANATOMIC LUNG RESECTN Left 03/29/2021 ?? @THORACOSCOPY, SURG; W/DX WEDGE RESC W/ANATOMIC LUNG RESC (WRVU 3) performed by Parth Foster MD at [facility] MAIN OR ? Social History: [...] Dressing: Min A (pt donned and doffed [facility] gown with assistance for line management) ?? [...] more times Total Minutes, Occupational Therapy: 34 ([facility] X2 [phone])) Pager: [phone] Messi Dooley OT 05/23/2022 Occupational Therapy Rehabilitation [...] RESECTION @MAJOR RECONSTRUCTION, CHEST WALL (WRVU 22.51) [facility] EPIDURAL ROUNDIN05/23/2022 10:41 AM Average Numeric Rating [...] acting as a scribe for Dr. Molina. [facility] Nurse: Oj Don RN Resident:: Jakob Dickerson DO Attending Physician:: Katie Molina MD I performed the above scribed service and agree with the accuracy of the note. KATIE MOLINA MD * Camilo Stevenson PA - 05/23/2022 9:[address] [facility] Department of Thoracic Surgery Inpatient Progress Note Patient Name: Rajan Marquez Patient : 1950 Patient Patient Location: [address] [place] [address] Attending Surgeon: PARTH FOSTER ID: Rajan Marquez [...] Visit from 04/30/2022 in Thoracic Surgery at [facility] Weight 73.1 kilograms, or 161 pounds 2.5 [...] peripheral edema. Incisions: LEFT posterolateral thoracotomy incision PHYSICS INSTRUCTOR with sterip strips intact. No surrounding erythema, [...] STEVE Black 05/23/2022 Thoracic Surgery Service Pager [phone] * Katie Molina MD - 05/22/2022 9:34 [...] RESECTION @MAJOR RECONSTRUCTION, CHEST WALL (WRVU 22.51) [facility] EPIDURAL ROUNDIN05/22/2022 9:34 AM Average Numeric Rating [...] acting as a scribe for Dr. Molina. [facility] Nurse: Oj Don RN Resident:: Jakob Dickerson DO Attending Physician:: Katie Molina MD I performed the above scribed service and agree with the accuracy of the note. KATIE MOLINA MD * Renu Donald PA - 05/22/2022 6:40 AM EDT Images from the original note were not included. [facility] Department of Thoracic Surgery Inpatient Progress Note Patient Name: Rajan Marquez Patient : 1950 Patient Patient Location: [address] [place] [address] Attending Surgeon: PARTH FOSTER ID: Rajan Marquez [...] Visit from 04/30/2022 in Thoracic Surgery at [facility] Weight 77 kg (169 lb 11.2 oz) [...] peripheral edema. Incisions: LEFT posterolateral thoracotomy incision PHYSICS INSTRUCTOR with sterip strips intact. No surrounding erythema, tenderness, drainage, or crepitus. Tubes/Lines/Drains: L Pleural CT, Matt, PIV, epidural I/O: I/O last 3 completed shifts: In: 2454.2 [P.O.:1708; I.V.:1560; Other:106.2] Out: 3940 [Urine:3450; Other:490] [...] STEVE Patel 05/22/2022 Thoracic Surgery Service Pager [phone] * Devorah Rivera RN - 05/22/2022 4:40 [...] indirect monitoring]: Marlys, Patient Safety Rounding * Chris Luis Miguel [...] IR Thoracentesis Left 11/08/2021 Ramírez Ramirez MD [facility] INTERVENTIONL RAD ??? PRO BRONCHOSCOPY, DIAGNOSTIC N/A 03/29/2021 BRONCHOSCOPY, DIAGNOSTIC (WRVU 2.78) performed by Parth Foster MD at [facility] MAIN OR ??? PRO BRONCHOSCOPY, DIAGNOSTIC N/A 02/08/2022 BRONCHOSCOPY, DIAGNOSTIC (WRVU 2.78) performed by Parth Foster MD at [facility] MAIN OR ??? PRO BRONCHOSCOPY, DIAGNOSTIC N/A 05/18/2022 BRONCHOSCOPY, DIAGNOSTIC (WRVU 2.53) performed by Parth Foster MD at [facility] MAIN OR ??? PRO DECORTICATION, PULMONARY, TOTAL Left 05/18/2022 @THORACOTOMY,DECORTICATION, PULMONARY, TOTAL (WRVU 26.65) performed by Parth Foster MD [facility] MAIN OR ? ? PRO INJECTION ANES AGENT &/ STEROID INTERCOSTAL NERVE SINGLE LEVEL Left 03/29/2021 NERVE BLOCK, INTERCOSTAL NERVE (WRVU 1.18) performed by Parth Foster MD at [facility] MAIN OR ??? PRO RECONSTRUCT INJURED CHEST Left 05/18/2022 @MAJOR RECONSTRUCTION, CHEST WALL (WRVU 22.51) performed by Parth Foster MD at [facility] MAIN OR ??? PRO THORACOSCOPY SURG LOBECTOMY Left 03/29/2021 @THORACOSCOPY,SURGICAL,W\LOBECTOMY,TOTAL OR SEGMENTAL (WRVU 24.64) performed by Johana Foster MD at [facility] MAIN OR ??? PRO THORACOSCOPY WITH BIOPSY OF PLEURA Left 02/08/2022 THORACOSCOPY; WITH BIOPSY(IES) OF PLEURA (WRVU 4.58) [facility]?? PRO THORACOSCOPY WITH MEDIASTINAL AND REGIONAL LYMPHADENECTOMY 03/29/2021 @THORACOSCOPY, SURG; W/MEDIASTINAL& REGIONAL LYMPHADENECTOMY (WRVU 4.12) performed by Parth Foster MD at [facility] MAIN OR ??? PRO THORACOSCOPY WITH WEDGE RESECTION AND ANATOMIC LUNG RESECTN Left 03/29/2021 @THORACOSCOPY, SURG; W/DX WEDGE RESC W/ANATOMIC LUNG RESC (WRVU 3) performed by Johana Foster MD at [facility] MAIN OR Social History: Home set-up: Lives in a ranch style home with a basement and his partner. Bathroom Set-up: Walk in or tub shower on the main level, usually uses the tub shower. Stairs: ramp to enter. Baseline Mobility: hasn't been driving recently and has been using a cane for ~ 2 weeks. 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 Enjoys 4-wheeling, kayaking and [...] Balance, Discharge planning and to call for field staff assistance with all mobility and needs reinforcement. [...] Code: evaluation LUIS MIGUEL PEREZ, PT Pager: [phone] Physical Therapy Inpatient Rehabilitation Department * Sites, [...] New Bag 05/20/2022 Epidural Rate/Dose Change 05/20/2022 [facility] EPIDURAL ROUNDIN05/21/2022 9:38 AM Average Numeric Rating [...] scribe for Dr. Karri Ellis. Anesthesia Staff ([facility]) Patient seen and examined on daily rounds. I agree with the above assessment and plan. [facility] Nurse: Messi Vieira RN Resident:: Jakob Dickerson DO Attending Physician:: Karri Ellis MD * Renu Donald PA - 05/21/2022 8:11 AM EDT Images from the original note were not included. [facility] Department of Thoracic Surgery Inpatient Progress Note Patient Name: Rajan Marquez Patient : 1950 Patient Patient Location: [address] [place] [address] Attending Surgeon: PARTH FOSTER ID: Rajan Marquez [...] Visit from 04/30/2022 in Thoracic Surgery at [facility] Weight 77.3 kg (170 lb 8 oz) [...] QTC Calculated (Bezet) 492 ms Calculated P [place] 106 degrees Calculated R [place] 71 degrees Calculated T [place] -169 degrees INTERPRETATION Sinus tachycardia Incomplete left bundle block Minimal voltage criteria for LVH, may be normal variant ( [place] product ) Nonspecific ST and T wave [...] Result Value Ref Range Surgical Pathology Report [id number] Location: OR; OR11; A The signing pathologist has (i) examined the relevant preparation(s) for the specimen(s) and (ii) rendered or confirmed the diagnosis(es). . Frozen Section FROZEN SECTION DIAGNOSIS CFS - VISCERAL PLEURAL RIND. FROZEN, excision for frozen section Inflamed pleura, no evidence of malignancy (claims customer service representative sample) 05/18/22 11:27 Electronically signed by: Malia Lacy MD Verified: 05/18/2022 11:29 Pathologist Performed at: -[facility] Dept. of Pathology, [place] [address] Paver: Maria Ines Marrufo MD, FCAP, CLIA Certificate: [id number] This intraoperative consultation should be interpreted as [...] MD Verified: 05/18/2022 11:25 Pathologist Performed at: -[facility] Dept. of Pathology, [place] [address] Paver: Maria Ines Marrufo MD, FCAP, CLIA Certificate: [id number] This intraoperative consultation should be interpreted as [...] Value Ref Range T&S only valid at [facility] Hosp Basic Metabolic Panel (non-fasting) Result Value [...] QTC Calculated (Bezet) 454 ms Calculated R [place] 82 degrees Calculated T [place] -102 degrees INTERPRETATION Sinus tachycardia with 1st [...] Epidural w/ PCEA per APS recommendations. Tylenol, FREIGHT RATE CLERK Bupropion Card: May consider increasing Metoprolol to 25mg BID, amiodarone (200mg daily) Pulm: IS/cough/deep breathe/OOB/ambulate. Continue left CT to -20 suction, monitor output. FREIGHT RATE CLERK spiriva, albuterol FENGI: Stop IVF, Regular diet. RBOs Renal/: Matt in place - will keep until epidural out, monitor UOP Heme: SQH, holding home Xarelto ID: SHELLEY Endo: SHELLEY MSK: FREIGHT RATE CLERK hydroxychloroquine for synovitis PPx: scds; SQH, Ambulate 4x a day. OOB. Other: Left arm in sling when OOB Dispo: full code, floor status All plans formulated in discussion with and directed by attending thoracic surgeon Dr. Foster. STEVE Peñaloza 05/21/2022 Thoracic Surgery Service Pager [phone] * Devorah Rivera RN - 05/21/2022 4:15 [...] Davis MD - 05/20/2022 7:[address] [facility] Department of Thoracic Surgery Inpatient Progress Note Patient Name: Rajan Marquez Patient : 1950 Patient Patient Location: [address] [place] [address] Attending Surgeon: PARTH FOSTER ID: Rajan Marquez [...] Visit from 04/30/2022 in Thoracic Surgery at [facility] Weight 75.4 kg (166 lb 3.2 oz) [...] QTC Calculated (Bezet) 492 ms Calculated P [place] 106 degrees Calculated R [place] 71 degrees Calculated T [place] -169 degrees INTERPRETATION Sinus tachycardia Incomplete left bundle block Minimal voltage criteria for LVH, may be normal variant ( [place] product ) Nonspecific ST and T wave [...] Result Value Ref Range Surgical Pathology Report [id number] Location: OR; OR11; A The signing pathologist has (i) examined the relevant preparation(s) for the specimen(s) and (ii) rendered or confirmed the diagnosis(es). . Frozen Section FROZEN SECTION DIAGNOSIS CFS - VISCERAL PLEURAL RIND. FROZEN, excision for frozen section Inflamed pleura, no evidence of malignancy (claims customer service representative sample) 05/18/22 11:27 Electronically signed by: Malia Lacy MD Verified: 05/18/2022 11:29 Pathologist Performed at: [facility] Dept. of Pathology, [place] [address] Paver: Maria Ines Marrufo MD, FCLESLY, CLIA Certificate: [id number] This intraoperative consultation should be interpreted as [...] MD Verified: 05/18/2022 11:25 Pathologist Performed at: [facility] Dept. of Pathology, [place] [address] Paver: Maria Ines Marrufo MD, FCAP, CLIA Certificate: [id number] This intraoperative consultation should be interpreted as [...] Value Ref Range T&S only valid at [facility] Hosp Basic Metabolic Panel (non-fasting) Result Value [...] have questions please contact the health hospice patient care secretary that requested your imaging first. Electronically signed by: Maryann Magallanes MD, [facility] ([phone]), at 05/18/2022 4:02 PM Assessment: Rajan Marquez [...] PT consulted. Plan: Neuro: Epidural w/ PCEA. FREIGHT RATE CLERK bupropion Card: HDS, FREIGHT RATE CLERK metoprolol, amiodarone (200mg daily) Pulm: IS/cough/deep breathe/OOB/ambulate. Continue left CT to -20 suction, monitor output. FREIGHT RATE CLERK spiriva, albuterol FENGI: LR @100 ml/hr, Regular diet. RBOs Renal/: Matt in place, monitor UOP Heme: SQH ID: SHELLEY Endo: SHELLEY MSK: FREIGHT RATE CLERK hydroxychloroquine for synovitis PPx: scds; SQH, Ambulate 4x a day. OOB. Dispo: full code, floor status Vaughn Davis MD 05/20/2022 Thoracic Surgery Service Pager [phone] * Sites, Karri Sharp MD - 05/19/2022 [...] Armas MD - 05/19/2022 8:[address] [facility] Department of Thoracic Surgery Inpatient Progress Note Patient Name: Rajan Marquez Patient : 1950 Patient Patient Location: [facility]B Attending Surgeon: PARTH FOSTER ID: Rajan Marquez [...] Visit from 04/30/2022 in Thoracic Surgery at [facility] Weight 71.5 kg (157 lb 11.2 oz) [...] QTC Calculated (Bezet) 492 ms Calculated P [place] 106 degrees Calculated R [place] 71 degrees Calculated T [place] -169 degrees INTERPRETATION Sinus tachycardia Incomplete left [...] Result Value Ref Range Surgical Pathology Report [id number] Location: OR; OR11; A The signing pathologist has (i) examined the relevant preparation(s) for the specimen(s) and (ii) rendered or confirmed the diagnosis(es). . Frozen Section FROZEN SECTION DIAGNOSIS CFS - VISCERAL PLEURAL RIND. FROZEN, excision for frozen section Inflamed pleura, no evidence of malignancy (claims customer service representative sample) 05/18/22 11:27 Electronically signed by: Malia Lacy MD Verified: 05/18/2022 11:29 Pathologist Performed at: -[facility] Dept. of Pathology, [place] [address] Paver: Maria Ines Marrufo MD, FCAP, [place] Certificate: [id number] This intraoperative consultation should be interpreted as [...] MD Verified: 05/18/2022 11:25 Pathologist Performed at: -[facility] Dept. of Pathology, [place] [address] Paver: Maria Ines Marrufo MD, FCAP, [place] Certificate: [id number] This intraoperative consultation should be interpreted as [...] Value Ref Range T&S only valid at [facility] Hosp Basic Metabolic Panel (non-fasting) Result Value [...] have questions please contact the health hospice patient care secretary that requested your imaging first. Electronically signed by: Maryann Magallanes MD, [facility] ([phone]), at 05/18/2022 4:02 PM Assessment: Rajan Marquez [...] PT consulted. Plan: Neuro: Epidural w/ PCEA. FREIGHT RATE CLERK bupropion Card: HDS, FREIGHT RATE CLERK metoprolol, amiodarone (200mg daily) Pulm: IS/cough/deep breathe/OOB/ambulate. Continue left CT to -20 suction, monitor output. FREIGHT RATE CLERK spiriva, albuterol FENGI: LR @100 ml/hr, Regular diet. RBOs Renal/: Matt in place, monitor UOP Heme: SQH ID: SHELLEY Endo: SEHLLEY MSK: FREIGHT RATE CLERK hydroxychloroquine for synovitis PPx: scds; SQH, Ambulate 4x a day. OOB. Dispo: full code, floor status Morales Armas MD 05/19/2022 Thoracic Surgery Service Pager [phone] * Morales Armas MD - 05/18/2022 3:[address] [facility] Department of Thoracic Surgery Inpatient Post Op Check Patient Name: Rajan Marquez Patient : 1950 Patient Patient Location: [address] Attending Surgeon: PARTH FOSTER ID: Rajan [...] OfficeVisit from 04/30/2022 in Thoracic Surgery at [facility] Weight 71.5 kg (157 lb 11.2 oz) [...] QTC Calculated (Bezet) 492 ms Calculated P [place] 106 degrees Calculated R [place] 71 degrees Calculated T [place] -169 degrees INTERPRETATION Sinus tachycardia Incomplete left [...] Result Value Ref Range Surgical Pathology Report [id number] Location: OR; OR11; A The signing pathologist has (i) examined the relevant preparation(s) for the specimen(s) and (ii) rendered or confirmed the diagnosis(es). . Frozen Section FROZEN SECTION DIAGNOSIS CFS - VISCERAL PLEURAL RIND. FROZEN, excision for frozen section Inflamed pleura, no evidence of malignancy (claims customer service representative sample) 05/18/22 11:27 Electronically signed by: Malia Lacy MD Verified: 05/18/2022 11:29 Pathologist Performed at: -[facility] Dept. of Pathology, [place] [address] Paver: Maria Ines Marrufo MD, GILMA, CLSOPHIA Certificate: [id number] This intraoperative consultation should be interpreted as [...] MD Verified: 05/18/2022 11:25 Pathologist Performed at: -[facility] Dept. of Pathology, [place] [address] Paver: Maria Ines Marrufo MD, GILMA, CLIA Certificate: [id number] This intraoperative consultation should be interpreted as [...] Value Ref Range T&S only valid at [facility] Basic Metabolic Panel (non-fasting) Result [...] have questions please contact the health hospice patient care secretary that requested your imaging first. Electronically signed by: Maryann Magallanes MD, [facility] ([phone]), at 05/18/2022 4:02 PM Assessment: Rajan Marquez is a 71 y.o. male who is Day of Surgery s/p robotic, converted to open left thoracotomy and total decortication. He is currently in stable condition and recovering well postoperatively.Post op CXR and labs reviewed. Maintain posterior CT strict suction and use a sling when OOB for left arm Plan: Neuro: Epidural w/ PCEA. FREIGHT RATE CLERK bupropion Card: HDS, FREIGHT RATE CLERK metoprolol, amiodarone (200mg daily) Pulm: IS/cough/deep breathe/OOB/ambulate. Continue left CT to -20 suction, monitor output. FREIGHT RATE CLERK spiriva, albuterol FENGI: LR @100 ml/hr, Regular diet. RBOs Renal/: Matt in place, monitor UOP Heme: SQH ID: SHELLEY Endo: SHELLEY MSK: FREIGHT RATE CLERK hydroxychloroquine for synovitis PPx: scds; SQH, Ambulate 4x a day. OOB. Dispo: full code, floor status Vaughn Davis MD 05/18/2022 Thoracic Surgery Service Pager [phone] * Missy Abdi RN - 05/18/2022 2:31 [...] given Having coffee 2039 report to [facility] 326 is cleaning When room ready, [...] IR Thoracentesis Left 11/08/2021 Ramírez Ramirez MD [facility] INTERVENTIONL RAD ??? PRO BRONCHOSCOPY, DIAGNOSTIC N/A 03/29/2021 BRONCHOSCOPY, DIAGNOSTIC (WRVU 2.78) performed by Parth Foster MD at [facility] OR ??? PRO BRONCHOSCOPY, DIAGNOSTIC N/A 02/08/2022 BRONCHOSCOPY, DIAGNOSTIC (WRVU 2.78) performed by Parth Foster MD at [facility] OR ? ? PRO INJECTION ANES AGENT &/ STEROID INTERCOSTAL NERVE SINGLE LEVEL Left 03/29/2021 NERVE BLOCK, INTERCOSTAL NERVE (WRVU 1.18) performed by Parth Foster MD at [facility] OR ??? PRO THORACOSCOPY SURG LOBECTOMY Left 03/29/2021 @THORACOSCOPY,SURGICAL,W\LOBECTOMY,TOTAL OR SEGMENTAL (WRVU 24.64) performed by Johana Foster MD at [facility] OR ??? PRO THORACOSCOPY WITH BIOPSY OF PLEURA Left 02/08/2022 THORACOSCOPY; WITH BIOPSY(IES) OF PLEURA (WRVU 4.58) performed by [facility] OR ??? PRO THORACOSCOPY WITH MEDIASTINAL AND REGIONAL LYMPHADENECTOMY 03/29/2021 @THORACOSCOPY, SURG; W/MEDIASTINAL& REGIONAL LYMPHADENECTOMY (WRVU 4.12) performed by Parth Foster MD at [facility] MAIN OR ??? PRO THORACOSCOPY WITH WEDGE RESECTION AND ANATOMIC LUNG RESECTN Left 03/29/2021 @THORACOSCOPY, SURG; W/DX WEDGE RESC W/ANATOMIC LUNG RESC (WRVU 3) performed by Johana Foster MD at [facility] MAIN OR MEDS: No current [...] STEVE Sethi 05/18/2022 Thoracic Surgery Service Pager [phone] documented in this encounter Miscellaneous Notes * [...] through: Primary Insurance: [employer] MANAGED MEDICARE Payor: [employer] MANAGED MEDICARE / Plan: [facility] COMPLETE / Product Type: *No Producttype* / Secondary Insurance: N/A Prescription Coverage: Yes This plan was formulated with input from patient and team. All are in agreement with plan. Kenia Sepulveda RN-BSN-CM Pager: [phone] * Plan of Care - Raquel Hoffmann [...] 180 days) Any patient receiving care in [place] must abide by [place] law. The hierarchy [...] (i) The agent with financial power of civil rights attorney or a conservator appointed in accordance [...] straight Home Address confirmed as: [place] [facility] [address] Social & Family Supports: All names listed [...] Specific Information: none Health/Prescription Coverage: Primary Insurance: [facility] MANAGED MEDICARE Payor: AAR MANAGED MEDICARE / [facility]: [facility] / Product Type: *No Producttype* / Secondary Insurance: N/A ; Prescription Coverage: Yes Preferred Pharmacy: [facility] - [place], [place] - [address] [place] [id number] [place] Status: Patient is a : No Primary Care Provider confirmed: Tami Olivia [phone] Patient/Caregiver Goals of Treatment: discharge home Potential Needs for Transition of Care: home health care Agency Referrals: I have met with the patient to: ?? discuss discharge planning needs. ?? provide the [facility], Office of Care Management letter from the Paver pertaining to rehabreferrals. ?? provide a letter describing our affiliations within the [facility] and educate about their right to choose where referrals are sent. ?? provide a list of Home Health Agencies / Durable Medical Equipment vendors which serve their preferred geographic area. ?? provided patient with [facility] Star Quality Rating handout. They have requested referrals to: [facility] [address] [place] [phone] Note routed to a Seconds Handler who will communicate referrals to facilities and [...] of care planning. Kenia Sepulveda RN-BSN-CM Pager: [phone] * Initial Assessments - Messi Dooley, OT [...] IR Thoracentesis Left 11/08/2021 Ramírez Ramirez MD [facility] INTERVENTIONL RAD ??? PRO BRONCHOSCOPY, DIAGNOSTIC N/A 03/29/2021 BRONCHOSCOPY, DIAGNOSTIC (WRVU 2.78) performed by Parth Foster MD at [facility] OR ??? PRO BRONCHOSCOPY, DIAGNOSTIC N/A 02/08/2022 BRONCHOSCOPY, DIAGNOSTIC (WRVU 2.78) performed by Parth Foster MD at [facility] OR ??? PRO BRONCHOSCOPY, DIAGNOSTIC N/A 05/18/2022 BRONCHOSCOPY, DIAGNOSTIC (WRVU 2.53) performed by Parth Foster MD at [facility] OR ??? PRO DECORTICATION, PULMONARY, TOTAL Left 05/18/2022 @THORACOTOMY,DECORTICATION, PULMONARY, TOTAL (WRVU 26.65) performed by Parth Foster MD [facility] OR ? ? PRO INJECTION ANES AGENT &/ STEROID INTERCOSTAL NERVE SINGLE LEVEL Left 03/29/2021 NERVE BLOCK, INTERCOSTAL NERVE (WRVU 1.18) performed by Parth Foster MD at [facility] MAIN OR ??? PRO RECONSTRUCT INJURED CHEST Left 05/18/2022 @MAJOR RECONSTRUCTION, CHEST WALL (WRVU 22.51) performed by Parth Foster MD at [facility] MAIN OR ??? PRO THORACOSCOPY SURG LOBECTOMY Left 03/29/2021 @THORACOSCOPY,SURGICAL,W\LOBECTOMY,TOTAL OR SEGMENTAL (WRVU 24.64) performed by Johana Foster MD at [facility] MAIN OR ??? PRO THORACOSCOPY WITH BIOPSY OF PLEURA Left 02/08/2022 THORACOSCOPY; WITH BIOPSY(IES) OF PLEURA (WRVU 4.58) [facility] ??? PRO THORACOSCOPY WITH MEDIASTINAL AND REGIONAL LYMPHADENECTOMY 03/29/2021 @THORACOSCOPY, SURG; W/MEDIASTINAL& REGIONAL LYMPHADENECTOMY (WRVU 4.12) performed by Parth Foster MD at [facility] MAIN OR ??? PRO THORACOSCOPY WITH WEDGE RESECTION AND ANATOMIC LUNG RESECTN Left 03/29/2021 @THORACOSCOPY, SURG; W/DX WEDGE RESC W/ANATOMIC LUNG RESC (WRVU 3) performed by Johana Foster MD at [facility] MAIN OR Social History: Patient [...] ?? WNL / WFL Communication: WFL B [facility] (pt reports hearing aids are no longer [...] planning. Total Minutes, Occupational Therapy: 40 (Tomi ([id number])) 2017 OT Evaluation Code Rationale: ?? Diagnosis [...] and measurable assessment of functional outcome. Pager: [phone] Messi Dooley OT 05/21/2022 Occupational Therapy Rehabilitation [...] Jose Manuel Salinas RN RN/CM - Cellphone: [phone] Pager: [phone] Covering Service RN/CM * Plan of Care - Mamta Mccullough RN - 05/19/2022 4:19 PM EST OUTCOME EVALUATION NOTE: OUTCOME SUMMARY: VSS BPs soft (250ml Bolus given) on 2L [place]-coughing w/ mild PETERSON; denies CP/N/V; pain well managed with epidural -04/20; dressings intact no OPHTHALMIC SURGEON known air leak; making adeq urine; tolerating [...] managed with epidural -04/20; dressings intact no OPHTHALMIC SURGEON known air leak; making adeq urine; tolerating [...] Foster MD - 05/18/2022 3:42 PM EST [facility] Operative Note Patient Name: Rajan Marquez : [id number] MR#: [id number] Case Date: 05/18/2022 Surgeon: Surgeon(s) and Role: * Parth Foster MD - Primary * Linda Mustafa PA - Physician Professor Of Music * Renu Donald PA - Physician Professor Of Music * Morales Armas MD - Resident Preoperative [...] 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 [facility] surgical timeout confirmed the patient's identity [...] muscular attachments and divided with the sliding distribution driver and then excised in pieces with a [...] muscular attachments and divided with the sliding distribution driver. This maneuverpermitted a [facility] rib blasting miner to be placed. The remainder of the [...] sharp dissection and cautery dissection, using the ShopSavvyis device for hemostasis. We worked posteriorly until [...] did appear to expand significantly. A 28 Yi chest tube was placed thr ough the camera port and advanced to the apex of the hemithorax and secured. We assessed the defectmade by resection of the fifth and sixth ribs. Because of the concern for scapular trapping, we elected to patch this defect. 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 Left visceral pleural [...] AM EST Office Visit Cardiology at [address] [place] [address] Chrissy Zepeda APRN [facility] [place] [address] Scheduled Procedures Name Priority Associated Diagnoses Date/Ti [...] 05/18/2022 10:17 AM EST Reconstruct Injured Chest (89984) 05/18/2022 9:19 AM EST Status post lobectomy of lung MODIFIER RIB RESECTION 05/18/2022 9:19 AM EST Status post lobectomy of lung Bronchoscopy, Diagnostic (98659) 05/18/2022 9:19 AM EST Status post lobectomy of lung Decortication, Pulmonary, Total (28559) 05/18/2022 9:19 AM EST Status post lobectomy [...] have questions please contact the health hospice patient care secretary that requested your imaging first. ? Electronically signed by: Savanah Suazo MD, [facility] ([phone]), at 06/11/2022 4:12 PM Narrative 06/11/2022 4:12 [...] who have questions please contactthe health hospice patient care secretary that requested your imaging first. Parth Foster [...] have questions please contact the health hospice patient care secretary that requested your imaging first. ? Electronically signed by: Marcus Edwards MD, [facility] ([phone]), at 05/24/2022 10:06 AM Narrative 05/24/2022 10:06 [...] who have questions please contactthe health hospice patient care secretary that requested your imaging first. Electronically signed by: Marcus Edwards MD, [facility]([phone]), at 05/24/2022 10:06 AM Parth Foster MD [...] have questions please contact the health hospice patient care secretary that requested your imaging first. ? Electronically signed by: Marcus Edwards MD, [facility] ([phone]), at 05/24/2022 8:58 AM Narrative 05/24/2022 8:58 [...] who have questions please contactthe health hospice patient care secretary that requested your imaging first. Electronically signed by: Marcus Edwards MD, [facility]([phone]), at 05/24/2022 8:58 AM Parth Foster MD IMG DX ORDERABLE S * Differential, Automated (05/24/2022 3:36 AM EDT) Neutrophil % 69.4 % [facility] Neutrophil Absolute 4.63 1.70 - 6.10 x10(3)/[facility] Lymph % 17.4 % [facility] Lymphocytes Abs 1.2 0.9 - 3.2 x10(3)/[facility] Monocyte % 11.1 % [facility] Monocyte Abs 0.7 0.3 - 0.9 x10(3)/[facility] Eos % 1.3 % [facility] Eosinophils Abs 0.1 0.0 - 0.4 x10(3)/[facility] Basophil % 0.7 % [facility] Baso Absolute 0.0 0.0 - 0.1 x10(3)/[facility] Immature Gran % 0.10 % [facility] Comment: Immature granulocytes(IG's)percentage and absolute count will include metamyelocytes, myelocytes, and promyelocytes. Blood smears from CBCs yielding IG's will be scanned manually for concordance. If this scan disagrees with the automated IG or if promyelocytes are noted, a manual differential will be performed. Immature Gran Absolute 0.01 0.00 - 0.04 x10(3)/[facility] Blood 05/24/2022 3:36 AM EDT 05/24/2022 4:02 AM EDT Narrative Resulting Agency Comment Spec In Lab Morales Armas MD HEMATOLOGY ORDERABLE S [facility] [place] [address] * (ABNORMAL) Hemogram (05/24/2022 3:36 AM EDT) White Blood Cell 6.7 4.0 - 9.5 x10(3)/mc L [facility] Red Blood Cell 3.10(L) 4.58 - 5.54 x10(6)/mc L [facility] Hemoglobin 8.1(L) 13.7 - 16.5 g/dL [facility] Hematocrit 25.8(L) 40.5 - 48.5 % [facility] Mean Cell Volume 83.2 82.9 - 93.1 fL [facility] Mean Cell Hemoglobin 26.1(L) 27.5 - 32.1 pg [facility] Mean Cell Hemoglobin Concentration 31.4(L) 32.0 - 35.7 g/dL [facility] Platelet 262 145 - 357 x10(3)/mc L [facility] RDW Standard Deviation 54.4(H) 36.0 - 45.0 fL [facility] RDW coefficient of variation 18.2(H) 11.4 - 13.8 % [facility] Mean Platelet Volume 8.3 7.6 - 12.9 fL [facility] NRBC% auto 0.0 % [facility] NRBC Absolute 0.000 0.000 - 0.000 x10(3)/mc L [facility] Blood 05/24/2022 3:36 AM EDT 05/24/2022 4:02 AM EDT Narrative Resulting Agency Comment Spec In Lab Morales Armas MD HEMATOLOGY ORDERABLE S Performing Organization Address City/State/[facility] Co de Phone Number [facility] [place] [address] * (ABNORMAL) Basic Metabolic Panel (non-fasting) (05/24/2022 3:36 AM EDT) Glucose 99 65 - 199 mg/dL [facility] Comment:Diabetes: >=200 mg/d L plus symptoms Blood Urea Nitrogen 18 10 - 20 mg/dL [facility] Creatinine 0.91 0.80 - 1.50 mg/dL [facility] Sodium 138 135 - 145 mmol/L [facility] Potassium 3.6 3.5 - 5.0 mmol/L [facility] Comment: Please note: ??Patients with WBC >100,000 may have falsely elevated Potassium levels. ??For accurate Potassium quantification in these patients send serum separator tube (gold top) for subsequent determinations. ??Contact the Clinical Chemistry Laboratory if there are any questions. Chloride 104 98 - 107 mmol/L [facility] Carbon Dioxide 25 22 - 31 mmol/L [facility] Anion Gap 9 5 - 15 mmol/L [facility] Calcium 8.3(L) 8.5 - 10.5 mg/dL [facility] Est Glomerular Filtration Rate 90 >=60 mL/min/1. 73 m?? [facility] Comment: This patient's estimated [...] Lab Parth Foster MD CHEMISTRY ORDERA JOSIE [facility] [place] [address] * XR Chest PA & Lateral (Generic) [...] have questions please contact the health hospice patient care secretary that requested your imaging first. ? Electronically signed by: Philip Church MD, [facility] ([phone]), at 05/23/2022 7:33 AM Narrative 05/23/2022 7:33 [...] who have questions please contactthe health hospice patient care secretary that requested your imaging first. Parth Foster MD IMG DX ORDERABLE S * Differential, Automated (05/23/2022 3:52 AM EDT) Neutrophil % 69.8 % [facility] Neutrophil Absolute 4.74 1.70 - 6.10 x10(3)/[facility] Lymph % 18.7 % [facility] Lymphocytes Abs 1.3 0.9 - 3.2 x10(3)/[facility] Monocyte % 10.2 % [facility] Monocyte Abs 0.7 0.3 - 0.9 x10(3)/[facility] Eos % 0.6 % [facility] Eosinophils Abs 0.0 0.0 - 0.4 x10(3)/[facility] Basophil % 0.4 % [facility] Baso Absolute 0.0 0.0 - 0.1 x10(3)/[facility] Immature Gran % 0.30 % [facility] Comment: Immature granulocytes(IG's)percentage and absolute count will include metamyelocytes, myelocytes, and promyelocytes. Blood smears from CBCs yielding IG's will be scanned manually for concordance. If this scan disagrees with the automated IG or if promyelocytes are noted, a manual differential will be performed. Immature Gran Absolute 0.02 0.00 - 0.04 x10(3)/[facility] Blood 05/23/2022 3:52 AM EDT 05/23/2022 4:08 AM EDT Narrative Resulting Agency Comment Spec In Lab Morales Armas MD HEMATOLOGY ORDERABLE S [facility] [place] [address] * (ABNORMAL) Hemogram (05/23/2022 3:52 AM EDT) White Blood Cell 6.8 4.0 - 9.5 x10(3)/mc L [facility] Red Blood Cell 3.13(L) 4.58 - 5.54 x10(6)/mc L [facility] Hemoglobin 8.2(L) 13.7 - 16.5 g/dL [facility] Hematocrit 26.5(L) 40.5 - 48.5 % [facility] Mean Cell Volume 84.7 82.9 - 93.1 fL [facility] Mean Cell Hemoglobin 26.2(L) 27.5 - 32.1 pg [facility] Mean Cell Hemoglobin Concentration 30.9(L) 32.0 - 35.7 g/dL [facility] Platelet 256 145 - 357 x10(3)/mc L [facility] RDW Standard Deviation 55.4(H) 36.0 - 45.0 fL [facility] RDW coefficient of variation 17.9(H) 11.4 - 13.8 % [facility] Mean Platelet Volume 8.3 7.6 - 12.9 fL [facility] NRBC% auto 0.0 % [facility] NRBC Absolute 0.000 0.000 - 0.000 x10(3)/mc L [facility] Blood 05/23/2022 3:52 AM EDT 05/23/2022 4:08 AM EDT Narrative Resulting Agency Comment Spec In Lab Morales Armas MD HEMATOLOGY ORDERABLE S [facility] [place] [address] * Basic Metabolic Panel (non-fasting) (05/23/2022 3:52 AM EDT) Glucose 99 65 - 199 mg/dL [facility] Comment:Diabetes: >=200 mg/d L plus symptoms Blood Urea Nitrogen 14 10 - 20 mg/dL [facility] Creatinine 0.94 0.80 - 1.50 mg/dL [facility] Sodium 135 135 - 145 mmol/L [facility] Potassium 3.6 3.5 - 5.0 mmol/L [facility] Comment: Please note: ??Patients with WBC >100,000 may have falsely elevated Potassium levels. ??For accurate Potassium quantification in these patients send serum separator tube (gold top) for subsequent determinations. ??Contact the Clinical Chemistry Laboratory if there are any questions. Chloride 100 98 - 107 mmol/L [facility] Carbon Dioxide 27 22 - 31 mmol/L [facility] Anion Gap 8 5 - 15 mmol/L [facility] Calcium 8.6 8.5 - 10.5 mg/dL [facility] Est Glomerular Filtration Rate 86 >=60 mL/min/1. 73 m?? [facility] Comment: This patient's estimated [...] In Lab Parth Foster MD CHEMISTRY ORDERA [facility] Performing Organization Address City/State/[facility] Co de Phone Number [facility] [place] [address] * Differential, Automated (05/22/2022 3:47 AM EDT) Neutrophil % 72.4 % [facility] Neutrophil Absolute 5.30 1.70 - 6.10 x10(3)/[facility] Lymph % 15.2 % [facility] Lymphocytes Abs 1.1 0.9 - 3.2 x10(3)/[facility] Monocyte % 11.1 % [facility] Monocyte Abs 0.8 0.3 - 0.9 x10(3)/[facility] Eos % 0.5 % [facility] Eosinophils Abs 0.0 0.0 - 0.4 x10(3)/[facility] Basophil % 0.4 % [facility] Baso Absolute 0.0 0.0 - 0.1 x10(3)/[facility] Immature Gran % 0.40 % [facility] Comment: Immature granulocytes(IG's)percentage and absolute count will include metamyelocytes, myelocytes, and promyelocytes. Blood smears from CBCs yielding IG's will be scanned manually for concordance. If this scan disagrees with the automated IG or if promyelocytes are noted, a manual differential will be performed. Immature Gran Absolute 0.03 0.00 - 0.04 x10(3)/mcL [facility] Blood 05/22/2022 3:47 AM EDT 05/22/2022 4:15 AM EDT Narrative Resulting Agency Comment Spec In Lab Morales Armas MD HEMATOLOGY ORDERABLE S [facility] [place] [address] * (ABNORMAL) Hemogram (05/22/2022 3:47 AM EDT) White Blood Cell 7.3 4.0 - 9.5 x10(3)/mc L [facility] Red Blood Cell 2.93(L) 4.58 - 5.54 x10(6)/mc L [facility] Hemoglobin 7.6(L) 13.7 - 16.5 g/dL [facility] Hematocrit 24.3(L) 40.5 - 48.5 % [facility] Mean Cell Volume 82.9 82.9 - 93.1 fL [facility] Mean Cell Hemoglobin 25.9(L) 27.5 - 32.1 pg [facility] Mean Cell Hemoglobin Concentration 31.3(L) 32.0 - 35.7 g/dL [facility] Platelet 236 145 - 357 x10(3)/mc L [facility] RDW Standard Deviation 53.4(H) 36.0 - 45.0 fL [facility] RDW coefficient of variation 17.5(H) 11.4 - 13.8 % [facility] Mean Platelet Volume 8.6 7.6 - 12.9 fL [facility] NRBC% auto 0.0 % [facility] NRBC Absolute 0.000 0.000 - 0.000 x10(3)/mc L [facility] Blood 05/22/2022 3:47 AM EDT 05/22/2022 4:15 AM EDT Narrative Resulting Agency Comment Spec In Lab Morales Armas MD HEMATOLOGY ORDERABLE S Performing Organization Address [facility] Co de Phone Number [facility] [place] [address] * Basic Metabolic Panel (non-fasting) (05/22/2022 3:47 AM EDT) Glucose 101 65 - 199 mg/dL [facility] Comment:Diabetes: >=200 mg/d L plus symptoms Blood Urea Nitrogen 14 10 - 20 mg/dL [facility] Comment:result rechecked-bm Creatinine 0.90 0.80 - 1.50 mg/dL [facility] Sodium 137 135 - 145 mmol/L [facility] Potassium 3.8 3.5 - 5.0 mmol/L [facility] Comment: Please note: ??Patients with WBC >100,000 may have falsely elevated Potassium levels. ??For accurate Potassium quantification in these patients send serum separator tube (gold top) for subsequent determinations. ??Contact the Clinical Chemistry Laboratory if there are any questions. Chloride 102 98 - 107 mmol/L [facility] Carbon Dioxide 26 22 - 31 mmol/L [facility] Anion Gap 9 5 - 15 mmol/L [facility] Calcium 8.5 8.5 - 10.5 mg/dL [facility] Est Glomerular Filtration Rate 91 >=60 mL/min/1. 73 m?? [facility] Comment: This patient's estimated [...] MD CHEMISTRY ORDERA BLES Performing Organization Address [facility]/ZIP Co de Phone Number [facility] [place] [address] * EKG 12 Lead (05/21/2022 7:36 AM EDT) Ventricular rate 118 BPM MUSE SYSTEM Atrial Rate 118 BPM MUSE SYSTEM P-R Interval 216 ms MUSE SYSTEM QRS Duration 106 ms MUSE SYSTEM Q-T Interval 324 ms MUSE SYSTEM QTC Calculated (Bezet) 454 ms MUSE SYSTEM Calculated R [place] 82 degrees MUSE SYSTEM Calculated T [place] -102 degrees MUSE SYSTEM INTERPRETATION Sinus tachycardia [...] Differential, Automated (05/21/2022 4:09 AM EDT) Pathologist [facility] Neutrophil % 72.4 % [facility] Neutrophil Absolute 4.83 1.70 - 6.10 x10(3)/[facility] Lymph % 14.5 % [facility] Lymphocytes Abs 1.0 0.9 - 3.2 x10(3)/[facility] Monocyte % 12.3 % [facility] Monocyte Abs 0.8 0.3 - 0.9 x10(3)/[facility] Eos % 0.1 % [facility] Eosinophils Abs 0.0 0.0 - 0.4 x10(3)/[facility] Basophil % 0.4 % [facility] Baso Absolute 0.0 0.0 - 0.1 x10(3)/[facility] Immature Gran % 0.30 % [facility] Comment: Immature granulocytes(IG's)percentage and absolute count will include metamyelocytes, myelocytes, and promyelocytes. Blood smears from CBCs yielding IG's will be scanned manually for concordance. If this scan disagrees with the automated IG or if promyelocytes are noted, a manual differential will be performed. Immature Gran Absolute 0.02 0.00 - 0.04 x10(3)/mcL [facility] Blood 05/21/2022 4:09 AM EDT 05/21/2022 5:00 AM EDT Narrative Resulting Agency Comment Spec In Lab Morales Armsa MD HEMATOLOGY ORDERABLE S [facility] [place] [address] * (ABNORMAL) Hemogram (05/21/2022 4:09 AM EDT) White Blood Cell 6.7 4.0 - 9.5 x10(3)/mc L [facility] Red Blood Cell 3.01(L) 4.58 - 5.54 x10(6)/mc L [facility] Hemoglobin 7.9(L) 13.7 - 16.5 g/dL [facility] Hematocrit 25.6(L) 40.5 - 48.5 % [facility] Mean Cell Volume 85.0 82.9 - 93.1 fL [facility] Mean Cell Hemoglobin 26.2(L) 27.5 - 32.1 pg [facility] Mean Cell Hemoglobin Concentration 30.9(L) 32.0 - 35.7 g/dL [facility] Platelet 226 145 - 357 x10(3)/mc L [facility] RDW Standard Deviation 53.6(H) 36.0 - 45.0 fL [facility] RDW coefficient of variation 17.3(H) 11.4 - 13.8 % [facility] Mean Platelet Volume 9.1 7.6 - 12.9 fL [facility] NRBC% auto 0.0 % [facility] NRBC Absolute 0.000 0.000 - 0.000 x10(3)/mc L [facility] Blood 05/21/2022 4:09 AM EDT 05/21/2022 5:00 AM EDT Narrative Resulting Agency Comment Spec In Lab Morales Armas MD HEMATOLOGY ORDERABLE S [facility] [place] [address] * (ABNORMAL) Basic Metabolic Panel (non-fasting) (05/21/2022 4:09 AM EDT) Glucose 84 65 - 199 mg/dL [facility] Comment:Diabetes: >=200 mg/d L plus symptoms Blood Urea Nitrogen 7(L) 10 - 20 mg/dL [facility] Creatinine 0.71(L) 0.80 - 1.50 mg/dL [facility] Sodium 137 135 - 145 mmol/L [facility] Potassium 3.5 3.5 - 5.0 mmol/L [facility] Comment: Please note: ??Patients with WBC >100,000 may have falsely elevated Potassium levels. ??For accurate Potassium quantification in these patients send serum separator tube (gold top) for subsequent determinations. ??Contact the Clinical Chemistry Laboratory if there are any questions. Chloride 103 98 - 107 mmol/L [facility] Carbon Dioxide 27 22 - 31 mmol/L [facility] Anion Gap 7 5 - 15 mmol/L [facility] Calcium 8.7 8.5 - 10.5 mg/dL [facility] Est Glomerular Filtration Rate 97 >=60 mL/min/1. 73 m?? [facility] Comment: This patient's estimated [...] Lab Parth Foster [place] [address] * Differential, Automated (05/20/2022 4:08 AM EDT) Pathologist [facility] Neutrophil % 74.7 % [facility] Neutrophil Absolute 5.59 1.70 - 6.10 x10(3)/[facility] Lymph % 12.6 % [facility] Lymphocytes Abs 0.9 0.9 - 3.2 x10(3)/[facility] Monocyte % 11.9 % [facility] Monocyte Abs 0.9 0.3 - 0.9 x10(3)/[facility] Eos % 0.0 % [facility] Eosinophils Abs 0.0 0.0 - 0.4 x10(3)/[facility] Basophil % 0.3 % [facility] Baso Absolute 0.0 0.0 - 0.1 x10(3)/[facility] Immature Gran % 0.50 % [facility] Comment: Immature granulocytes(IG's)percentage and absolute count will include metamyelocytes, myelocytes, and promyelocytes. Blood smears from CBCs yielding IG's will be scanned manually for concordance. If this scan disagrees with the automated IG or if promyelocytes are noted, a manual differential will be performed. Immature Gran Absolute 0.04 0.00 - 0.04 x10(3)/[facility] Blood 05/20/2022 4:08 AM EDT 05/20/2022 4:48 AM EDT Narrative Resulting Agency Comment Spec In Lab Morales Armas [place] [address] * (ABNORMAL) Hemogram (05/20/2022 4:08 AM EDT) White Blood Cell 7.5 4.0 - 9.5 x10(3)/mc L [facility] Red Blood Cell 3.07(L) 4.58 - 5.54 x10(6)/mc L [facility] Hemoglobin 8.0(L) 13.7 - 16.5 g/dL [facility] Hematocrit 25.9(L) 40.5 - 48.5 % [facility] Mean Cell Volume 84.4 82.9 - 93.1 fL [facility] Mean Cell Hemoglobin 26.1(L) 27.5 - 32.1 pg [facility] Mean Cell Hemoglobin Concentration 30.9(L) 32.0 - 35.7 g/dL [facility] Platelet 207 145 - 357 x10(3)/mc L [facility] RDW Standard Deviation 53.7(H) 36.0 - 45.0 fL [facility] RDW coefficient of variation 17.4(H) 11.4 - 13.8 % [facility] Mean Platelet Volume 8.7 7.6 - 12.9 fL [facility] NRBC% auto 0.0 % [facility] NRBC Absolute 0.000 0.000 - 0.000 x10(3)/mc L [facility] Blood 05/20/2022 4:08 AM EDT 05/20/2022 4:48 AM EDT Narrative Resulting Agency Comment Spec In Lab Morales Armas MD HEMATOLOGY ORDERABLE S [facility] [place] [address] * (ABNORMAL) Basic Metabolic Panel (non-fasting) (05/20/2022 4:08 AM EDT) Glucose 99 65 - 199 mg/dL [facility] Comment:Diabetes: >=200 mg/d L plus symptoms Blood Urea Nitrogen 11 10 - 20 mg/dL [facility] Creatinine 0.79(L) 0.80 - 1.50 mg/dL [facility] Sodium 133(L) 135 - 145 mmol/L [facility] Potassium 3.8 3.5 - 5.0 mmol/L [facility] Comment: Please note: ??Patients with WBC >100,000 may have falsely elevated Potassium levels. ??For accurate Potassium quantification in these patients send serum separator tube (gold top) for subsequent determinations. ??Contact the Clinical Chemistry Laboratory if there are any questions. Chloride 102 98 - 107 mmol/L [facility] Carbon Dioxide 23 22 - 31 mmol/L [facility] Anion Gap 8 5 - 15 mmol/L [facility] Calcium 8.3(L) 8.5 - 10.5 mg/dL [facility] Est Glomerular Filtration Rate 94 >=60 mL/min/1. 73 m?? [facility] Comment: This patient's estimated [...] ORDERA [facility] Performing Organization Address City/State/[facility] Co de Phone Number [facility] [place] [address] * XR Chest PA & Lateral (Generic) [...] have questions please contact the health hospice patient care secretary that requested your imaging first. ? Electronically signed by: Savanah Suazo MD, [facility] ([phone]), at 05/19/2022 11:16 AM Narrative 05/19/2022 11:16 [...] who have questions please contactthe health hospice patient care secretary that requested your imaging first. Parth Foster MD IMG DX ORDERABLE S * (ABNORMAL) Differential, Automated (05/19/2022 3:31 AM EST) Neutrophil % 80.9 % [facility] Neutrophil Absolute 8.95(H) 1.70 - 6.10 x10(3)/mc L [facility] Lymph % 9.3 % [facility] Lymphocytes Abs 1.0 0.9 - 3.2 x10(3)/[facility] Monocyte % 9.2 % [facility] Monocyte Abs 1.0(H) 0.3 - 0.9 x10(3)/[facility] Eos % 0.0 % [facility] Eosinophils Abs 0.0 0.0 - 0.4 x10(3)/[facility] Basophil % 0.1 % [facility] Baso Absolute 0.0 0.0 - 0.1 x10(3)/[facility] Immature Gran % 0.50 % [facility] Comment: Immature granulocytes(IG's)percentage and absolute count will include metamyelocytes, myelocytes, and promyelocytes. Blood smears from CBCs yielding IG's will be scanned manually for concordance. If this scan disagrees with the automated IG or if promyelocytes are noted, a manual differential will be performed. Immature Gran Absolute 0.05(H) 0.00 - 0.04 x10(3)/[facility] Blood 05/19/2022 3:31 AM EST 05/19/2022 3:56 AM EST Narrative Resulting Agency Comment Spec In Lab Morales Armas MD HEMATOLOGY ORDERABLE S [facility] [place] [address] * (ABNORMAL) Hemogram (05/19/2022 3:31 AM EST) White Blood Cell 11.1(H) 4.0 - 9.5 x10(3)/ L [facility] Red Blood Cell 3.23(L) 4.58 - 5.54 x10(6)/[facility] Hemoglobin 8.5(L) 13.7 - 16.5 g/dL [facility] Hematocrit 26.8(L) 40.5 - 48.5 % [facility] Mean Cell Volume 83.0 82.9 - 93.1 fL [facility] Mean Cell Hemoglobin 26.3(L) 27.5 - 32.1 pg [facility] Mean Cell Hemoglobin Concentration 31.7(L) 32.0 - 35.7 g/dL [facility] Platelet 245 145 - 357 x10(3)/mc L [facility] RDW Standard Deviation 52.6(H) 36.0 - 45.0 fL [facility] RDW coefficient of variation 17.3(H) 11.4 - 13.8 % [facility] Mean Platelet Volume 8.4 7.6 - 12.9 fL [facility] NRBC% auto 0.0 % [facility] NRBC Absolute 0.000 0.000 - 0.000 x10(3)/mc L [facility] Blood 05/19/2022 3:31 AM EST 05/19/2022 3:56 AM EST Narrative Resulting Agency Comment Spec In Lab Morales Armas MD HEMATOLOGY ORDERABLE S Performing Organization Address City/State/[facility] Co de Phone Number [facility] [place] [address] * Basic Metabolic Panel (non-fasting) (05/19/2022 3:31 AM EST) Glucose 111 65 - 199 mg/dL [facility] Comment:Diabetes: >=200 mg/d L plus symptoms Blood Urea Nitrogen 13 10 - 20 mg/dL [facility] Creatinine 0.93 0.80 - 1.50 mg/dL [facility] Sodium 135 135 - 145 mmol/L [facility] Potassium 4.8 3.5 - 5.0 mmol/L [facility] Comment: Please note: ??Patients with WBC >100,000 may have falsely elevated Potassium levels. ??For accurate Potassium quantification in these patients send serum separator tube (gold top) for subsequent determinations. ??Contact the Clinical Chemistry Laboratory if there are any questions. Chloride 102 98 - 107 mmol/L [facility] Carbon Dioxide 24 22 - 31 mmol/L [facility] Anion Gap 9 5 - 15 mmol/L [facility] Calcium 8.5 8.5 - 10.5 mg/dL [facility] Est Glomerular Filtration Rate 87 >=60 mL/min/1. 73 m?? [facility] Comment: This patient's estimated [...] Lab Parth Foster [place] [address] * XR Chest One View (05/18/2022 4:01 [...] have questions please contact the health hospice patient care secretary that requested your imaging first. ? Electronically signed by: Maryann Magallanes MD, [facility] ([phone]), at 05/18/2022 4:02 PM Narrative 05/18/2022 4:02 [...] who have questions please contactthe health hospice patient care secretary that requested your imaging first. Parth Foster MD IMG DX ORDERABLE S * (ABNORMAL) Differential, Automated (05/18/2022 2:18 PM EST) Neutrophil % 85.2 % [facility] Neutrophil Absolute 9.74(H) 1.70 - 6.10 x10(3)/mc L [facility] Lymph % 7.3 % [facility] Lymphocytes Abs 0.8(L) 0.9 - 3.2 x10(3)/mc L [facility] Monocyte % 6.8 % [facility] Monocyte Abs 0.8 0.3 - 0.9 x10(3)/mc L [facility] Eos % 0.2 % [facility] Eosinophils Abs 0.0 0.0 - 0.4 x10(3)/mc L [facility] Basophil % 0.2 % [facility] Baso Absolute 0.0 0.0 - 0.1 x10(3)/mc L [facility] Immature Gran % 0.30 % [facility] Comment: Immature granulocytes(IG's)percentage and absolute count will include metamyelocytes, myelocytes, and promyelocytes. Blood smears from CBCs yielding IG's will be scanned manually for concordance. If this scan disagrees with the automated IG or if promyelocytes are noted, a manual differential will be performed. Immature Gran Absolute 0.04 0.00 - 0.04 x10(3)/ L [facility] Blood 05/18/2022 2:18 PM EST 05/18/2022 2:30 PM EST Narrative Resulting Agency Comment Spec In Lab Morales Armas MD HEMATOLOGY ORDERABLE S Performing Organization Address City/State/[facility] Co de Phone Number [facility] [place] [address] * (ABNORMAL) Hemogram (05/18/2022 2:18 PM EST) White Blood Cell 11.4(H) 4.0 - 9.5 x10(3)/mc L [facility] Red Blood Cell 3.19(L) 4.58 - 5.54 x10(6)/ L [facility] Hemoglobin 8.4(L) 13.7 - 16.5 g/dL [facility] Hematocrit 26.5(L) 40.5 - 48.5 % [facility] Mean Cell Volume 83.1 82.9 - 93.1 fL [facility] Mean Cell Hemoglobin 26.3(L) 27.5 - 32.1 pg [facility] Mean Cell Hemoglobin Concentration 31.7(L) 32.0 - 35.7 g/dL [facility] Platelet 289 145 - 357 x10(3)/ L [facility] RDW Standard Deviation 52.3(H) 36.0 - 45.0 fL [facility] RDW coefficient of variation 17.2(H) 11.4 - 13.8 % [facility] Mean Platelet Volume 8.4 7.6 - 12.9 fL [facility] NRBC% auto 0.0 % [facility] NRBC Absolute 0.000 0.000 - 0.000 x10(3)/mc L [facility] Blood 05/18/2022 2:18 PM EST 05/18/2022 2:30 PM EST Narrative Resulting Agency Comment Spec In Lab Morales Armas MD HEMATOLOGY ORDERABLE S [facility] [place] [address] * (ABNORMAL) Basic Metabolic Panel (non-fasting) (05/18/2022 2:18 PM EST) Glucose 117 65 - 199 mg/dL [facility] Comment:Diabetes: >=200 mg/d L plus symptoms Blood Urea Nitrogen 15 10 - 20 mg/dL [facility] Creatinine 0.96 0.80 - 1.50 mg/dL [facility] Sodium 138 135 - 145 mmol/L [facility] Potassium 4.4 3.5 - 5.0 mmol/L [facility] Comment: Please note: ??Patients with WBC >100,000 may have falsely elevated Potassium levels. ??For accurate Potassium quantification in these patients send serum separator tube (gold top) for subsequent determinations. ??Contact the Clinical Chemistry Laboratory if there are any questions. Chloride 106 98 - 107 mmol/L [facility] Carbon Dioxide 22 22 - 31 mmol/L [facility] Anion Gap 10 5 - 15 mmol/L [facility] Calcium 8.3(L) 8.5 - 10.5 mg/dL [facility] Est Glomerular Filtration Rate 84 >=60 mL/min/1. 73 m?? [facility] Comment: This patient's estimated [...] MD CHEMISTRY ORDERA BLES Performing Organization Address [facility]/ZIP Co de Phone Number [facility] [place] [address] * Type and Screen Validity (05/18/2022 1:37 PM EST) T&S only valid at [facility] Comment:This Type and Screen result is only valid at the [facility] Blood 05/18/2022 1:37 PM EST 05/18/2022 1:48 PM EST Narrative Resulting Agency Comment Spec In Lab Parth Foster MD BLOOD BANK LAB O RDERABLES Performing Organization Address City/[facility]/ZIP Co de Phone Number [facility] [place] [address] * ABORH Recheck Status (05/18/2022 1:37 PM EST) ABORH Recheck Order Order Placed [facility] ABORH Type Recheck Complete [facility] Blood 05/18/2022 1:37 PM EST 05/18/2022 1:48 PM EST Narrative Resulting Agency Comment Spec In Lab Parth Foster MD BLOOD BANK LAB O RDERABLES Performing Organization Address City/[facility] Co de Phone Number [facility] [place] [address] * Antibody screen (05/18/2022 1:37 PM EST) Ab Screen Interp Negative [facility] Expires at [id number] on: 05/21/2022 [facility] Blood 05/18/2022 1:37 PM EST 05/18/2022 1:48 PM EST Narrative Resulting Agency Comment Spec In Lab Parth Foster MD BLOOD BANK LAB O RDERABLES [facility] [place] [address] * ABO/Rh Typing (05/18/2022 1:37 PM EST) ABORH Type A Pos [facility] Blood 05/18/2022 1:37 PM EST 05/18/2022 1:48 PM EST Narrative Resulting Agency Comment Spec In Lab Parth Foster MD BLOOD BANK LAB O RDERABLES Performing Organization Address City/[facility] Co de Phone Number [facility] [place] [address] * (ABNORMAL) BLOOD GAS 2 ARTERIAL (05/18/2022 12:41 PM EST) pH, Arterial 7.34(L) 7.35 - 7.45 [facility] PCO2, Arterial 42 35 - 45 mmHg [facility] PO2, Arterial 290(H) 85 - 104 mmHg [facility] Bicarbonate, Arterial 22.2 20.0 - 26.0 mmol/L [facility] Base Excess, Arterial -3.5(L) -3.0 - 3.0 mmol/L [facility] Hgb Blood Gas 9.2(L) 13.7 - 16.5 g/dL [facility] Oxyhemoglobin, Arterial 98.5(H) 94.0 - 97.0 % [facility] Carboxyhemoglob in, Arterial 1.2 % [facility] Comment: Nonsmokers: 0.5-1.5% COHB Smokers: Variable, but usually less than 10% Toxic: 20-30% COHB Lethal: Greater than 60% COHB Methemoglobin, Arterial 0.3 <=1.5 % [facility] Na Whole Blood 133(L) 135 - 145 mmol/L [facility] K Whole Blood 4.2 3.5 - 5.0 mmol/L [facility] Comment: Please note: Patients with WBC >100,000 may have falsely elevated Potassium levels. Contact the Clinical Chemistry Laboratory if there are any questions. ICa Whole Blood 1.16 1.15 - 1.33 mmol/L [facility] Comment: Note: ??Total bilirubin higher than 20 mg/dL may lead to falsely low ionized calcium. CL Whole Blood 104 98 - 107 mmol/L [facility] Gluc Whole Bld 130 65 - 199 mg/dL [facility] Comment:Diabetes: >=200 mg/d L plus symptoms. Lactate WB 1.0 0.5 - 2.2 mmol/L [facility] FIO2 Art 50 % [facility] Flow Art 1.0 LPM [facility] PF Ratio Art 580 [facility] Blood 05/18/2022 12:4 1 PM EST 05/18/2022 12:41 PM EST Parth Foster MD POINT OF CARE TE ST ORDERABLES Performing Organization Address [facility] Co de Phone Number [facility] [place] [place] [address] * Specimen to Pathology (05/18/2022 11:21 AM EST) AP Specimen 05/18/2022 11:2 1 AM EST 05/18/2022 11:21 AM EST Narrative [facility] - 05/18/2022 11:21 AM EST Specimen requisition ordered. ??Separate Pathology report to follow Parth Foster MD PATHOLOGY/CYTOLO GY ORDERABLES Performing Organization Address [facility] Co de Phone Number [facility] [place] [address] * Specimen to Pathology (05/18/2022 10:56 AM EST) AP Specimen 05/18/2022 10:5 6 AM EST 05/18/2022 10:56 AM EST Narrative [facility] - 05/18/2022 10:56 AM EST Specimen requisition ordered. ??Separate Pathology report to follow Parth Foster MD PATHOLOGY/CYTOLO GY ORDERABLES Performing Organization Address [facility] Co de Phone Number [facility] [place] [address] * Specimen to Pathology (05/18/2022 10:37 AM EST) AP Specimen 05/18/2022 10:3 7 AM EST 05/18/2022 10:37 AM EST Narrative [facility] - 05/18/2022 10:37 AM EST Specimen requisition ordered. ??Separate Pathology report to follow Parth Foster MD PATHOLOGY/CYTOLO GY ORDERABLES Performing Organization Address [facility] Co de Phone Number [facility] [place] [address] * Specimen to Pathology (05/18/2022 10:36 AM EST) AP Specimen 05/18/2022 10:3 6 AM EST 05/18/2022 10:36 AM EST Narrative [facility] - 05/18/2022 10:36 AM EST Specimen requisition ordered. ??Separate Pathology report to follow Parth Foster MD PATHOLOGY/CYTOLO GY ORDERABLES Performing Organization Address [facility] Co de Phone Number [facility] [place] [address] * Specimen to Pathology (05/18/2022 10:36 AM EST) AP Specimen 05/18/2022 10:3 6 AM EST 05/18/2022 10:36 AM EST Narrative [facility] - 05/18/2022 10:36 AM EST Specimen requisition ordered. ??Separate Pathology report to follow Parth Foster MD PATHOLOGY/CYTOLO GY ORDERABLES Performing Organization Address [facility] Co de Phone Number [facility] [place] [address] * Anaerobic Culture (05/18/2022 10:35 AM EST) Anaerobic Culture No anaerobic organisms isolated [facility] Lung 05/18/2022 10:3 5 AM EST 05/18/2022 2:17 PM EST Comment:Left pleural grumous Narrative Resulting Agency Comment Spec In Lab Parth Foster MD MICROBIOLOGY - G ENERAL ORDERABLES Performing Organization Address [facility] Co de Phone Number [facility] [place] [address] * Tissue culture (05/18/2022 10:35 AM EST) Tissue Culture No growth [facility] Gram Stain Few Neutrophils seen No microorganisms seen. [facility] Lung 05/18/2022 10:3 5 AM EST 05/18/2022 2:17 PM EST Comment:Left pleural grumous Narrative Resulting Agency Comment Spec In Lab Parth Foster MD MICROBIOLOGY - G ENERAL ORDERABLES [facility] [place] [address] * Surgical Pathology Report (05/18/2022 10:19 AM EST) Final Diagnosis [id number] ? Location: L3WD; 0326; B The signing [...] Soriano Verified: ??06/04/2022 14:52 ??Pathologist Performed at: ??-[facility] Dept. of Pathology, [place] [address] Paver: Maria Ines Marrufo MD, AP, ??CLIA Certificate: [id number] SPECIMEN(S) SUBMITTED A - Left pleural rind, [...] tissue is submitted for frozen section: A1. Corporate Treasury Analyst sections in 3 cassettes as follows: ?A1: ??Frozen section remnant ?A2-A3: ??Corporate Treasury Analyst sections B - Labeled/Fixative: Left pleural grumous, fresh. Quantity/Size: Fragments, 7.0 x 5.0 x 1.0 cm in aggregate. Tissue Description: Multiple soft rubbery fragments of white tissue. Sections/Processin g: Corporate Treasury Analyst sections in 2 cassettes labeled B1-B2. C - Labeled/Fixative: Visceral pleural rind. Frozen, fresh for frozen section. Quantity/Size: Single, 2.7 x 1.9 x 0.2 cm. Tissue Description: Serrato-white membranous soft tissue. Sections/Processin g: The following tissue is submitted for frozen section: C1. Corporate Treasury Analyst sections in 2 cassettes as follows: ?C1: ??Frozen section remnant ?C2: ??Corporate Treasury Analyst sections D - Labeled/Fixative: Fragments of rib, fresh. Quantity/Size: Fragments, 9.0 x 9.0 x 2.0 cm in aggregate. Tissue Description: Multiple fragments of rib and surrounding connective tissue. Sections/Processin g: Blocks submitted for decalcification: D1. Corporate Treasury Analyst sections in 1 cassette labeled D1. E - Labeled/Fixative: Left parietal pleural rind, fresh. Quantity/Size: Fragments, 12.5 x 12.5 x 2.0 cm in aggregate. Tissue Description: Multiple fragments of firm rubbery serrato-white tissue with surrounding adipose tissue. Sections/Processin g: Corporate Treasury Analyst sections in 2 cassettes labeled E1-E2. F - Labeled/Fixative: Left visceral pleural rind, fresh. Quantity/Size: Fragments, 9.0 x 5.0 x 2.0 cm in aggregate. Tissue Description: Fragments of firm rubbery serrato-white tissue. Sections/Processin g: Corporate Treasury Analyst sections in 2 cassettes labeled F1-F2. ??jnk ?Frozen Section FROZEN SECTION DIAGNOSIS CFS - VISCERAL PLEURAL RIND. FROZEN, excision ?for frozen section Inflamed ??pleura, no evidence of malignancy (claims customer service representative sample) 05/18/22 11:27 Electronically signed by: ?Malia Lacy MD Verified: ??05/18/2022 11:29 ??Pathologist Performed at: ??-[facility] Dept. of Pathology, [place] [address] Paver: Maria Ines Marrufo MD, FCAP, ??CLIA Certificate: [id number] This intraoperative consultation should be interpreted as [...] MD Verified: ??05/18/2022 11:25 ??Pathologist Performed at: ??-[facility] Dept. of Pathology, [place] [address] Paver: Maria Ines Marrufo MD, FCAP, ??CLIA Certificate: [id number] This intraoperative consultation should be interpreted as a preliminary diagnosis pending review of the entire specimen and special studies, if any. A final Surgical Pathology report will follow this preliminary Frozen Section report(s). 06/04/2022 2:52 PM EDT [facility] Frozen Specimen 05/18/2022 1 0:19 [...] MD PATHOLOGY/CYTOLO GY ORDERABLES Performing Organization Address City/[facility]/ZIP Co de Phone Number [facility] [address] [place] [address] * Specimen to Pathology (05/18/2022 10:19 AM EST) AP Specimen 05/18/2022 10:1 9 AM EST 05/18/2022 10:19 AM EST Narrative [facility] - 05/18/2022 10:19 AM EST Specimen requisition ordered. ??Separate Pathology report to follow Parth Foster MD PATHOLOGY/CYTOLO GY ORDERABLES [facility] [place] [address] * (ABNORMAL) BLOOD GAS 2 ARTERIAL (05/18/2022 10:17 AM EST) pH, Arterial 7.36 7.35 - 7.45 [facility] PCO2, Arterial 42 35 - 45 mmHg [facility] PO2, Arterial 226(H) 85 - 104 mmHg [facility] Bicarbonate, Arterial 22.9 20.0 - 26.0 mmol/L [facility] Base Excess, Arterial -2.6 -3.0 - 3.0 mmol/L [facility] Hgb Blood Gas 9.5(L) 13.7 - 16.5 g/dL [facility] Oxyhemoglobin, Arterial 98.5(H) 94.0 - 97.0 % [facility] Carboxyhemoglob in, Arterial 1.0 % [facility] Comment: Nonsmokers: 0.5-1.5% COHB Smokers: Variable, but usually less than 10% Toxic: 20-30% COHB Lethal: Greater than 60% COHB Methemoglobin, Arterial 0.3 <=1.5 % [facility] Na Whole Blood 133(L) 135 - 145 mmol/L [facility] K Whole Blood 3.8 3.5 - 5.0 mmol/L [facility] Comment: Please note: Patients with WBC >100,000 may have falsely elevated Potassium levels. Contact the Clinical Chemistry Laboratory if there are any questions. ICa Whole Blood 1.18 1.15 - 1.33 mmol/L [facility] Comment: Note: ??Total bilirubin higher than 20 mg/dL may lead to falsely low ionized calcium. CL Whole Blood 104 98 - 107 mmol/L [facility] Gluc Whole Bld 107 65 - 199 mg/dL [facility] Comment:Diabetes: >=200 mg/d L plus symptoms. Lactate WB 1.5 0.5 - 2.2 mmol/L [facility] Blood 05/18/2022 10:1 7 AM EST 05/18/2022 10:17 AM EST Parth Foster MD POINT OF CARE [facility] ORDERABLES [facility] [place] [address] * XR Fluoro No Rad <1Hr - [...] (Bezet) 492 ms MUSE SYSTEM Calculated P [place] 106 degrees MUSE SYSTEM Calculated R [place] 71 degrees MUSE SYSTEM Calculated T [place] -169 degrees MUSE SYSTEM INTERPRETATION Atrial flutter Non-specific intra-ventricular conduction delay Minimal voltage criteria for LVH, may be normal variant ( [place] product ) Nonspecific ST and T wave abnormality Abnormal ECG When compared with ECG of 21-FEB-2022 06:21, No significant change was found I personally reviewed the tracing and edited the fellows interpretation Confirmed by fellow Rudi Guzmán ([id number]) on 05/21/2022 4:25:34 AM Confirmed by MD RUST SALVATORE ([id number]) on 05/21/2022 10:56:00 AM MUSE SYSTEM 05/18/2022 8:00 AM EST 05/21/2022 10:56 AM EDT Parth Foster MD ECG ORDERABLES MUSE SYSTEM * POCT Glucose (05/18/2022 7:29 AM EST) Glucose, POC 93 65 - 199 mg/dL [facility] Comment: Supplemental ranges: <140 mg/dL before meals <180 mg/dL all other times of the day Blood 05/18/2022 7:29 AM EST 05/18/2022 7:29 AM EST Parth Foster MD POINT OF CARE TE ST ORDERABLES [facility] [place] [address] documented in this encounter Visit Diagnoses Diagnosis [...] Farias RN) 1014 (Given - Provider: Maribell aFrias RN) 0901 (Given - Provider: Deysi Motta [...] Discontinued, Routine 0555 (Given - Provider: Devorah Rviera RN) heparin (porcine) (5,000 units/1 mL) subcutaneous [...] Unit) documented in this encounter Care Teams Grain Mill Worker Relationship Specialty Start Date End Date Tami Olivia [address] [place] [address] PCP - General Family Medicine 12/30/20 documented as of this encounter
--- OUTSIDE RECORDS SUMMARY | 2023-12-31 22:47 | XMS_ITS | Encounter Summary ---
Author Organization [facility] Address [facility] [place] [address] Care Team Providers Care Etcher Hand Name Role Phone Tami Olivia Primary Care Provider [phone] Reason for Visit * Reason Onset Date Comments Post Procedure Call 02/26/2022 Encounter Details Date Type Department Care Team (Late st Contact Info) Description 02/26/2022 Telephone Thoracic Surgery at [facility] [place] [phone] Megan Reza, RN Post Procedure Call Social [...] 10:40 AM EST Office Visit Cardiology at [address] [address] Chrissy Zepeda APRN [facility] [place] [address] Scheduled Procedures Name Priority Associated Diagnoses Date/Ti me CARDIOVERSION-ELECTIVE (WRVU 2) atrial flutter ELECTROPHYSIOLOGY PROCEDURE Persistent atrial fibrillation CARDIOVERSION-ELECTIVE (WRVU 2) persistent atrial fibrillation TRANSESOPHAGEAL ECHOCARDIOGR AM (WRVU 2.3) persistent atrial fibrillation documented as of this encounter Visit Diagnoses Not on filedocumented in this encounter Care Teams Etcher Hand Relationship Specialty Start Date End Date Tami Olivia [address] [place] [address] PCP - General Family Medicine 12/30/20 documented as of this encounter
--- OUTSIDE RECORDS SUMMARY | 2023-12-31 22:47 | XMS_ITS | Encounter Summary ---
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 [place] [address] [facility] Referral ID Status Reason Start Date Expiration Date Visits Re quested Visits Authorized [id number] 1 1 Encounter Details Date Type Department Care Team (Late st Contact Info) Description 05/18/2022 9:21 AM EST Anesthesia Event [place] [address] Mary Wagoner MD [facility] [place] [address] Jakob Dickerson DO [facility] [place] [address] Anesthesia Record Procedure Summary Procedure Name Responsible [...] 0733; median cubital vein (antecubital fossa), right; ythp-mlm-ldcxfc catheter system; Anatomical Landmarks; 22 gauge; Beth [...] dorsal arch vein (top of hand), left; dfzl-yek-eouknj catheter system; Anatomical Landmarks; 16 gauge; nickie; [...] Procedure Summary Date: 05/18/22 Room / Location: [address] MAIN OR Anesthesia Start: 920 Anesthesia Stop: 1407 Procedures: @THORACOTOMY,DECORTICATION, PULMONARY, TOTAL (WRVU 26.65) (Left: Chest) BRONCHOSCOPY, DIAGNOSTIC (WRVU 2.53) MODIFIER RIB RESECTION (Left) @MAJOR RECONSTRUCTION, CHEST WALL (WRVU 22.51) (Left: Chest) Diagnosis: Status post lobectomy of lung (fibrothorax) Surgeons: Gilmer Gutiérrez MD Responsible Provider: Mary Wagoner MD Anesthesia Type: general ASA Status: 3 All Anesthesia Providers: Anesthesiologist: Mary Wagoner MD Veterinary Toxicologist: Sloan Rosa MD Vitals Value Taken Time BP Temp Pulse Resp SpO2 Pain Level Patient Location: PACU/[facility] Level of Consciousness: Awake and Alert [...] End time: 05/18/2022 9:19 AM Baseline Information (RSIR-unwk-bfvxcyyv entry for database use): HTN: Yes Patient [...] obtained. Patient was transported to [facility] OR [facility], [facility] procedure by surgeon/president in stable condition. Professor Of Biology (Caleb) I was present for the entire procedure. PA and Lateral dye study confirmed correct epidural location. Resident/PC MAINTENANCE TECHNICIAN: Second Resident/PC MAINTENANCE TECHNICIAN: SRNA: Fellow: Belkis Rosenberg MD Attending Physician: [...] IR Thoracentesis Left 11/08/2021 Ramírez Ramirez MD [facility] RAD ??? PRO BRONCHOSCOPY, DIAGNOSTIC N/A 03/29/2021 BRONCHOSCOPY, DIAGNOSTIC (WRVU 2.78) performed by Gilmer Gutiérrez MD at [facility] OR ??? PRO BRONCHOSCOPY, DIAGNOSTIC N/A 02/08/2022 BRONCHOSCOPY, DIAGNOSTIC (WRVU 2.78) performed by Gilmer Gutiérrez MD at [facility] OR ? ? PRO INJECTION ANES AGENT &/ STEROID INTERCOSTAL NERVE SINGLE LEVEL Left 03/29/2021 NERVE BLOCK, INTERCOSTAL NERVE (WRVU 1.18) performed by Gilmer Gutiérrez MD at [facility] OR ??? PRO THORACOSCOPY SURG LOBECTOMY Left 03/29/2021 @THORACOSCOPY,SURGICAL,W\LOBECTOMY,TOTAL OR SEGMENTAL (WRVU 24.64) performed by Johana Gutiérrez MD at [facility] OR ??? PRO THORACOSCOPY WITH BIOPSY OF PLEURA Left 02/08/2022 THORACOSCOPY; WITH BIOPSY(IES) OF PLEURA (WRVU 4.58) performed by Gilmer Gutiérrez MD at [facility] OR ??? PRO THORACOSCOPY WITH MEDIASTINAL AND REGIONAL LYMPHADENECTOMY 03/29/2021 @THORACOSCOPY, SURG; W/MEDIASTINAL& REGIONAL LYMPHADENECTOMY (WRVU 4.12) performed by Gilmer G[facility]rez MD at [facility] OR ??? PRO THORACOSCOPY WITH WEDGE RESECTION AND ANATOMIC LUNG RESECTN Left 03/29/2021 @THORACOSCOPY, SURG; W/DX WEDGE RESC W/ANATOMIC LUNG RESC (WRVU 3) performed by Johana Gutiérrez MD at [facility] OR Social History Tobacco [...] 10:40 AM EST Office Visit Cardiology at [address] [address] Chrissy Zepeda APRN [facility] [place] [address] Scheduled Procedures Name Priority Associated Diagnoses Date/Ti me CARDIOVERSION-ELECTIVE (WRVU 2) atrial flutter ELECTROPHYSIOLOGY PROCEDURE Persistent atrial fibrillation CARDIOVERSION-ELECTIVE (WRVU 2) persistent atrial fibrillation TRANSESOPHAGEAL ECHOCARDIOGR AM (WRVU 2.3) persistent atrial fibrillation documented as of this encounter Procedures Procedure Name Priority Date/Time Associated Diagnosis Comments [id number] ONLY Routine 05/18/2022 8:43 AM EST documented in this encounter Results * [id number] ONLY (05/18/2022 8:43 AM EST) Narrative Sites, [...] End time: 05/18/2022 9:19 AM Baseline Information (RKLG-maai-mdqupdps entry for database use): HTN: ??Yes Patient [...] to neighboring OR for their procedure by surgeon/president in stable condition. Professor Of Biology (Caleb) I was present for the entire procedure. PA and Lateral dye study confirmed correct epidural location. ?? Resident/PC MAINTENANCE TECHNICIAN: ? Second Resident/PC MAINTENANCE TECHNICIAN: SRNA: ? Fellow: ?Belkis Rosenberg MD Attending Physician: ? Caleb, Karri Sharp MD ~~~~~~~~~~~~~~~~~~~~~~~~~~~~~~~~~~~~~~~~~~~~~~~~~~~~~~~~~~~~ Karri Ellis MD BOBCAT OPERATOR [facility] documented in this encounter Visit Diagnoses Not on filedocumented in this encounter Administered Medications Inactive Administered Medications - up to 3 most recent administrations Medication Order MAR Action Action Date Dose Rate Site ceFAZolin (Ancef) 2 g vial attach to sodium chloride 0.9% 100 mL Mini-Bag Plus 2 g, Intravenous, CHARGE AUTHORIZER TO O.R., 1 dose, On Sat05/18/22 at [...] Units documented in this encounter Care Teams Rainbow Trout Farm Manager Relationship Specialty Start Date End Date Tami Olivia [address] [place] [address] PCP - General Family Medicine 12/30/20 documented as of this encounter
--- OUTSIDE RECORDS SUMMARY | 2023-12-31 22:47 | XMS_ITS | Encounter Summary ---
Author Organization [facility] [place] [address] Care Team Providers Care Weighbridge Operator Name Role Phone Tami Olivia Primary Care Provider [phone] Encounter Details Date Type Department Care Team (Late st Contact Info) Description 02/22/2022 Telephone [place] [phone] Megan Reza, RN Social History Tobacco Use [...] AM EST Office Visit Cardiology at [address] [phone] Chrissy Zepeda, MORTEZA [facility] [place] [address] Scheduled Procedures Name Priority Associated Diagnoses Date/Ti me CARDIOVERSION-ELECTIVE (WRVU 2) atrial flutter ELECTROPHYSIOLOGY PROCEDURE Persistent atrial fibrillation CARDIOVERSION-ELECTIVE (WRVU 2) persistent atrial fibrillation TRANSESOPHAGEAL ECHOCARDIOGR AM (WRVU 2.3) persistent atrial fibrillation documented as of this encounter Visit Diagnoses Not on filedocumented in this encounter Care Teams Weighbridge Operator Relationship Specialty Start Date End Date Tami Olivia [address] [place] [address] PCP - General Family Medicine 12/30/20 documented as of this encounter
--- OUTSIDE RECORDS SUMMARY | 2023-12-31 22:47 | XMS_ITS | Encounter Summary ---
Author Organization [facility] Address [facility] [place] [address] Care Team Providers Care Venetian Blind Installer Name Role Phone Tami Olivia Primary Care Provider [phone] Reason for Visit * Reason Comments Follow-up Encounter Details Date Type Department Care Team (Late st Contact Info) Description 04/30/2022 3:00 PM EST Office [place] [address] Gilmer Gutiérrez MD [facility] [place] [address] Primary squamous cell carcinoma of upper lobe [...] the surgeon to operate in small and fapn-fy-jrdvs places in the chest cavity, and to [...] stay. You may bring your cellphone, and personnel counselor, pajama pants and shirts, under garments, comfy [...] you will be scheduled to see Dr. uGtiérrez in his clinic and will also have [...] Follow Up Note MD Mendy Fischer PA-C [place] [address] Reason for Visit: Follow up after PFTs [...] Moreland PA-C 04/30/22 Dept of Thoracic Surgery [facility] * Gilmer Gutiérrez MD - 04/30/2022 [...] 10:40 AM EST Office Visit Cardiology at [address] [phone] Chrissy Zepeda, PURCHASING COORDINATOR [facility] [place] [address] Scheduled Procedures Name Priority Associated Diagnoses Date/Ti me CARDIOVERSION-ELECTIVE (WRVU 2) atrial flutter ELECTROPHYSIOLOGY PROCEDURE Persistent atrial fibrillation CARDIOVERSION-ELECTIVE (WRVU 2) persistent atrial fibrillation TRANSESOPHAGEAL ECHOCARDIOGR AM (WRVU 2.3) persistent atrial fibrillation documented as of this encounter Visit Diagnoses Diagnosis 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
--- OUTSIDE RECORDS SUMMARY | 2023-12-31 22:47 | XMS_ITS | Encounter Summary ---
Author Organization [facility] Address [facility] [place] [address] Care Team Providers Care Exercise Instructor Name Role Phone Tami Olivia Primary Care Provider +1 [phone] Encounter Details Date Type Department Care Team (Latest Contact Info) Description 04/16/2022 1:30 PM EST Laboratory Appointment Lab [address] [place] [phone] Pleural effusion; Squamous cell carcinoma of left [...] AM EST Office Visit Cardiology at [address] [phone] Chrissy Zepeda APRN [facility] [place] [address] Scheduled Procedures Name Priority Associated Diagnoses Date/Ti [...] 2:10 PM EST) Neutrophil % 70.5 % [facility] Neutrophil Absolute 5.46 1.70 - 6.10 x10(3)/mc L [facility] Lymph % 16.6 % [facility] Lymphocytes Abs 1.3 0.9 - 3.2 x10(3)/mc L [facility] Monocyte % 11.4 % [facility] Monocyte Abs 0.9 0.3 - 0.9 x10(3)/mc L [facility] Eos % 0.1 % [facility] Eosinophils Abs 0.0 0.0 - 0.4 x10(3)/mc L [facility] Basophil % 0.6 % [facility] Baso Absolute 0.0 0.0 - 0.1 x10(3)/mc L [facility] Immature Gran % 0.80 % [facility] Comment: Immature granulocytes(IG's)percentage and absolute count will include metamyelocytes, myelocytes, and promyelocytes. Blood smears from CBCs yielding IG's will be scanned manually for concordance. If this scan disagrees with the automated IG or if promyelocytes are noted, a manual differential will be performed. Immature Gran Absolute 0.06(H) 0.00 - 0.04 x10(3)/mc L [facility] Blood 04/16/2022 2:10 PM EST 04/16/2022 2:21 PM EST Narrative Resulting Agency Comment Spec In Lab Gilmer Gutiérrez MD HEMATOLOGY ORDER PHILOMENA [facility] [place] [address] * (ABNORMAL) Hemogram (04/16/2022 2:10 PM EST) White Blood Cell 7.8 4.0 - 9.5 x10(3)/mc L [facility] Red Blood Cell 4.54(L) 4.58 - 5.54 x10(6)/mc L [facility] Hemoglobin 11.5(L) 13.7 - 16.5 g/dL [facility] Hematocrit 36.9(L) 40.5 - 48.5 % [facility] Mean Cell Volume 81.3(L) 82.9 - 93.1 fL [facility] Mean Cell Hemoglobin 25.3(L) 27.5 - 32.1 pg [facility] Mean Cell Hemoglobin Concentration 31.2(L) 32.0 - 35.7 g/dL [facility] Platelet 364(H) 145 - 357 x10(3)/mc L [facility] RDW Standard Deviation 48.6(H) 36.0 - 45.0 fL [facility] RDW coefficient of variation 16.6(H) 11.4 - 13.8 % [facility] Mean Platelet Volume 8.6 7.6 - 12.9 fL [facility] NRBC% auto 0.0 % [facility] NRBC Absolute 0.000 0.000 - 0.000 x10(3)/ L [facility] Blood 04/16/2022 2:10 PM EST 04/16/2022 2:21 PM EST Narrative Resulting Agency Comment Spec In Lab Gilmer Gutiérrez MD HEMATOLOGY ORDER PHILOMENA [facility] [place] [address] * (ABNORMAL) Comprehensive metabolic panel (non-fasting) (04/16/2022 2:10 PM EST) Glucose 98 65 - 199 mg/dL [facility] Comment:Diabetes: >=200 mg/d L plus symptoms Blood Urea Nitrogen 19 10 - 20 mg/dL [facility] Creatinine 1.20 0.80 - 1.50 mg/dL [facility] Sodium 135 135 - 145 mmol/L [facility] Potassium 4.8 3.5 - 5.0 mmol/L [facility] Comment: Please note: ??Patients with WBC >100,000 may have falsely elevated Potassium levels. ??For accurate Potassium quantification in these patients send serum separator tube (gold top) for subsequent determinations. ??Contact the Clinical Chemistry Laboratory if there are any questions. Chloride 97(L) 98 - 107 mmol/L [facility] Carbon Dioxide 25 22 - 31 mmol/L [facility] Anion Gap 13 5 - 15 mmol/L [facility] Calcium 10.7(H) 8.5 - 10.5 mg/dL [facility] Protein, Total 7.3 6.1 - 8.0 g/dL [facility] Albumin 3.8 3.2 - 5.2 g/dL [facility] Aspartate Aminotransferase 11 0 - 39 unit/L [facility] Alanine Aminotransferase 13 0 - 55 unit/L [facility] Alkaline Phosphatase 202(H) 40 - 130 unit/L [facility] Bilirubin, Total 0.5 0.2 - 1.3 mg/dL [facility] Est Glomerular Filtration Rate 64 >=60 mL/min/1. 73 m?? [facility] Comment: This patient's estimated GFR [...] Organization Address City/State/ZIP Co de Phone Number [facility] [place] [address] documented in this encounter Visit Diagnoses Diagnosis Pleural effusion Unspecified pleural effusion 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 Other postprocedural status documented in this encounter Care Teams Exercise Instructor Relationship Specialty Start Date End Date Tami Olivia [address] [place] [address] PCP - General Family Medicine 12/30/20 documented as of this encounter
--- OUTSIDE RECORDS SUMMARY | 2023-12-31 22:47 | XMS_ITS | Encounter Summary ---
Author Organization [facility] Address [facility] [place] [address] Care Team Providers Care Rigger Supervisor Name Role Phone Tami Olivia Primary Care Provider [phone] [phone] Reason for Referral * Diagnostic Test (Routine) - Closed Specialty Diagnoses / Procedures Referred By Bert guatam Referred To Contact Radiology Diagnoses Pleural effusion 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 Procedures CT Chest w Contrast Gilmer Gutiérrez MD [facility] [place] [address] [facility] [place] [address] Referral ID Status Reason Start Date Expiration Date V isits Requested Visits Authorized [id number] Closed Specialty Service Requested 03/06/2022 09/05/2023 1 1 Reason for Visit * Reason Comments Follow-up Encounter Details Date Type Department Care Team (Late st Contact Info) Description 03/06/2022 1:00 PM EST Office [place] [phone] Gilmer Gutiérrez MD [facility] [place] [address] Pleural effusion; Squamous cell carcinoma [...] AM EST Office Visit Cardiology at [address] [phone] Chrissy Zepeda APRN [facility] [place] [address] Scheduled Procedures Name Priority Associated Diagnoses Date/Ti [...] who have questions please contact the health elderly caregiver that requested your imaging first. ? Electronically signed by: Maryann Magallanes MD, [facility] ([phone]), at 04/16/2022 7:31 PM Narrative 04/16/2022 7:31 [...] patients who have questions please contactthe health elderly caregiver that requested your imaging first. Electronically signed by: Maryann Magallanes MD, [facility]([phone]), at 04/16/2022 7:31 PM Gilmer Gutiérrez MD IMG CT ORDERABLE S documented in this encounter Visit Diagnoses Diagnosis Pleural effusion Unspecified pleural effusion 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 Other postprocedural status Pleural effusion Unspecified pleural effusion 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 Other postprocedural status documented in this encounter Care Teams Rigger Supervisor Relationship Specialty Start Date End Date Tami Olivia [address] [place] [address] PCP - General Family Medicine 12/30/20 documented as of this encounter
--- OUTSIDE RECORDS SUMMARY | 2023-12-31 22:47 | XMS_ITS | Encounter Summary ---
Author Organization [facility] [place] [address] Care Team Providers Care Personalized Living Manager Nurse Name Role Phone Tami Olivia Primary Care Provider [phone] [phone] Encounter Details Date Type Department Care Team [...] AM EST Office Visit Cardiology at [address] [phone] Chrissy Zepeda APRN [facility] [place] [address] Scheduled Procedures Name Priority Associated Diagnoses Date/Ti me CARDIOVERSION-ELECTIVE (WRVU 2) atrial flutter ELECTROPHYSIOLOGY PROCEDURE Persistent atrial fibrillation CARDIOVERSION-ELECTIVE (WRVU 2) persistent atrial fibrillation TRANSESOPHAGEAL ECHOCARDIOGR AM (WRVU 2.3) persistent atrial fibrillation documented as of this encounter Visit Diagnoses Not on filedocumented in this encounter Care Teams Personalized Living Manager Nurse Relationship Specialty Start Date End Date Tami Olivia [address] [place] [address] PCP - General Family Medicine 12/30/20 documented as of this encounter
--- OUTSIDE RECORDS SUMMARY | 2023-12-31 22:47 | XMS_ITS | Encounter Summary ---
Author Organization [facility] [place] [address] Care Team Providers Care Tankroom Tender Name Role Phone Tami Olivia Primary Care Provider [phone] [phone] Encounter Details Date Type Department Care Team (Late st Contact Info) Description 04/27/2022 Telephone [place] [address] Anayeli Brown Social History Tobacco [...] 11:31 AM EST Copied from [facility] #[id number]. Topic: Specialty Dept CRMs - Generic Call [...] AM EST Office Visit Cardiology at [address] [phone] Chrissy Zepeda, MORTEZA [facility] [place] [address] Scheduled Procedures Name Priority Associated Diagnoses Date/Ti me CARDIOVERSION-ELECTIVE (WRVU 2) atrial flutter ELECTROPHYSIOLOGY PROCEDURE Persistent atrial fibrillation CARDIOVERSION-ELECTIVE (WRVU 2) persistent atrial fibrillation TRANSESOPHAGEAL ECHOCARDIOGR AM (WRVU 2.3) persistent atrial fibrillation documented as of this encounter Visit Diagnoses Not on filedocumented in this encounter Care Teams Tankroom Tender Relationship Specialty Start Date End Date Tami Olivia [address] [place] [address] PCP - General Family Medicine 12/30/20 documented as of this encounter
--- OUTSIDE RECORDS SUMMARY | 2023-12-31 22:47 | XMS_ITS | Encounter Summary ---
Author Organization [place] [address] Care Team Providers Care Covering Machine Tender Name Role Phone Tami Olivia Primary Care Provider [phone] [phone] Encounter Details Date Type Department Care Team [...] 10:40 AM EST Office Visit Cardiology at [address] [phone] Chrissy Zepeda APRN [facility] [place] [address] Scheduled Procedures Name Priority Associated Diagnoses Date/Ti me CARDIOVERSION-ELECTIVE (WRVU 2) atrial flutter ELECTROPHYSIOLOGY PROCEDURE Persistent atrial fibrillation CARDIOVERSION-ELECTIVE (WRVU 2) persistent atrial fibrillation TRANSESOPHAGEAL ECHOCARDIOGR AM (WRVU 2.3) persistent atrial fibrillation documented as of this encounter Visit Diagnoses Not on filedocumented in this encounter Care Teams Covering Machine Tender Relationship Specialty Start Date End Date Tami Olivia [address] [place] [address] PCP - General Family Medicine 12/30/20 documented as of this encounter
--- OUTSIDE RECORDS SUMMARY | 2023-12-31 22:47 | XMS_ITS | Encounter Summary ---
Author Organization [facility] Address [facility] [place] [address] Care Team Providers Care Drum Stenciler Name Role Phone Tami Olivia Primary Care Provider [phone] [phone] Encounter Details Date Type Department Care Team (Latest Contact Info) Description 04/30/2022 1:50 PM EST - 04/30/2022 11:59 PM EST Hospital Encounter Pulmonology at [facility] [place] [phone] Pleural effusion; Squamous cell carcinoma of left [...] AM EST Office Visit Cardiology at [address] [phone] Chrissy Zepeda APRN [facility] [place] [address] Scheduled Procedures Name Priority Associated Diagnoses Date/Ti [...] / FVC LLN 62 % COMPAS PFT [id number] Actual Pre-BD 1.42 L/s COMPAS PFT [id number] Pre-BD % of Predicted 64 % COMPAS PFT [id number] Predicted 2.21 L/s COMPAS PFT CED03-63 Pre-BD Z-Score -0.94 COMPAS PFT DLCO Hb [...] status documented in this encounter Care Teams Drum Stenciler Relationship Specialty Start Date End Date Tami Olivia [address] [place] [address] PCP - General Family Medicine 12/30/20 documented as of this encounter
--- OUTSIDE RECORDS SUMMARY | 2023-12-31 22:47 | XMS_ITS | Encounter Summary ---
Author Organization [facility] Address [facility] [place] [address] Care Team Providers Care Geomorphology Teacher Name Role Phone Tami Olivia Primary Care Provider +1 [phone] Encounter Details Date Type Department Care Team (Late st Contact Info) Description 04/16/2022 3:45 PM EST Office Visit Thoracic Surgery at [facility] [place] [address] Gilmer Gutiérrez MD [facility] DR THORACIC [place] [address] Pleural effusion; Squamous cell carcinoma of left [...] Consultation Note MD Yosef Blanco. ASHLEY Butcher [place] [address] Reason for Visit: Follow up HPI: Rajan [...] Dr. Gutiérrez. STEVE Lenz 04/16/2022 Thoracic Surgery [facility] * Gilmer Gutiérrez MD - [...] 10:40 AM EST Office Visit Cardiology at [address] [phone] Chrissy Zepeda, MORTEZA [facility] [place] [address] Scheduled Procedures Name Priority Associated Diagnoses Date/Ti [...] / FVC LLN 62 % COMPAS PFT [id number] Actual Pre-BD 1.42 L/s COMPAS PFT [id number] Pre-BD % of Predicted 64 % COMPAS PFT [id number] Predicted 2.21 L/s COMPAS PFT RHS99-14 Pre-BD Z-Score -0.94 COMPAS PFT DLCO Hb [...] status documented in this encounter Care Teams Geomorphology Teacher Relationship Specialty Start Date End Date Kobeapalamar-JacksonRomaTami [address] [place] [address] PCP - General Family Medicine 12/30/20 documented as of this encounter
--- OUTSIDE RECORDS SUMMARY | 2023-12-31 22:47 | XMS_ITS | Encounter Summary ---
Author Organization [facility] Address [facility] [place] [address] Care Team Providers Care General Utility Machine Operator Name Role Phone Tami Olivia Primary Care Provider [phone] [phone] Encounter Details Date Type Department Care Team (Late st Contact Info) Description 05/01/2022 Orders [place] [phone] Megan Reza RN Social History Tobacco Use [...] AM EST Office Visit Cardiology at [address] [phone] Chrissy Zepeda, GRAPHIC DESIGN TEACHER [facility] [place] [address] Scheduled Procedures Name Priority Associated Diagnoses Date/Ti me CARDIOVERSION-ELECTIVE (WRVU 2) atrial flutter ELECTROPHYSIOLOGY PROCEDURE Persistent atrial fibrillation CARDIOVERSION-ELECTIVE (WRVU 2) persistent atrial fibrillation TRANSESOPHAGEAL ECHOCARDIOGR AM (WRVU 2.3) persistent atrial fibrillation documented as of this encounter Visit Diagnoses Not on filedocumented in this encounter Care Teams General Utility Machine Operator Relationship Specialty Start Date End Date Tami Olivia [address] [place] [address] PCP - General Family Medicine 12/30/20 documented as of this encounter
--- OUTSIDE RECORDS SUMMARY | 2023-12-31 22:47 | XMS_ITS | Encounter Summary ---
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 Procedures CT Chest w Contrast Gilmer Gutiérrez MD [facility] [place] [address] [facility] [place] [address] Referral ID Status Reason Start Date Expiration Date V isits Requested Visits Authorized [id number] Closed Specialty Service Requested 03/06/2022 09/05/2023 1 1 Reason for Visit * Diagnostic Test (Routine) - Closed Specialty Diagnoses / Procedures Referred By Bert gautam Referred To Contact Radiology Diagnoses Pleural effusion 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 Procedures CT Chest w Contrast Gilmer Gutiérrez MD [facility] [place] [address] [facility] [place] [address] Referral ID Status Reason Start Date Expiration Date V isits Requested Visits Authorized [id number] Closed Specialty Service Requested 03/06/2022 09/05/2023 1 1 Encounter Details Date Type Department Care Team (Latest Contact Info) Description 04/16/2022 2:16 PM EST - 04/16/2022 11:59 PM EST Hospital [place] [phone] Gilmer Gutiérrez MD [facility] [place] [address] Pleural effusion; Squamous cell carcinoma of left [...] AM EST Office Visit Cardiology at [address] [phone] Chrissy Zepeda SALESPERSON FLOWERS [facility] [place] [address] Scheduled Procedures Name Priority Associated Diagnoses Date/Ti [...] questions please contact the health animal care taker that requested your imaging first. ? Electronically signed by: Maryann Magallanes MD, [facility] ([phone]), at 04/16/2022 7:31 PM Narrative 04/16/2022 7:31 [...] have questions please contactthe health animal care taker that requested your imaging first. Gilmer Gutiérrez [...] mLs documented in this encounter Care Teams Loading Unit Operator Powder Charging Relationship Specialty Start Date End Date KobejaylamarTami Desir [address] [place] [address] PCP - General Family Medicine 12/30/20 documented as of this encounter
--- OUTSIDE RECORDS SUMMARY | 2023-12-31 22:48 | XMS_ITS | Encounter Summary ---
Author Organization [facility] Address [facility] [place] [address] Care Team Providers Care Mounter Saxophones Name Role Phone Tami Olivia Primary Care Provider [phone] [phone] Encounter Details Date Type Department Care Team (Latest Contact Info) Description 10/30/2021 1:00 PM EDT Laboratory Appointment Lab [address] [place] [phone] Squamous cell carcinoma of left lung; Status [...] AM EST Office Visit Cardiology at [address] [phone] Chrissy Zepeda, STEAM BLOCKER [facility] [place] [address] Scheduled Procedures Name Priority Associated Diagnoses Date/Ti [...] EDT) Creatinine 1.01 0.80 - 1.50 mg/dL [facility] Est Glomerular Filtration Rate 80 >=60 mL/min/1. 73 m?? 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
--- OUTSIDE RECORDS SUMMARY | 2023-12-31 22:48 | XMS_ITS | Encounter Summary ---
Author Organization [facility] Address [facility] [place] [address] Care Team Providers Care Dental Surgery Doctor Name Role Phone Tami Olivia Primary Care Provider [phone] Encounter Details Date Type Department Care Team [...] AM EST Office Visit Cardiology at [address] [phone] Chrissy Zepeda, METAL FRAMER [facility] [place] [address] Scheduled Procedures Name Priority Associated Diagnoses Date/Ti me CARDIOVERSION-ELECTIVE (WRVU 2) atrial flutter ELECTROPHYSIOLOGY PROCEDURE Persistent atrial fibrillation CARDIOVERSION-ELECTIVE (WRVU 2) persistent atrial fibrillation TRANSESOPHAGEAL ECHOCARDIOGR AM (WRVU 2.3) persistent atrial fibrillation documented as of this encounter Visit Diagnoses Not on filedocumented in this encounter Care Teams Dental Surgery Doctor Relationship Specialty Start Date End Date Tami Olivia [address] [place] [address] PCP - General Family Medicine 12/30/20 documented as of this encounter
--- OUTSIDE RECORDS SUMMARY | 2023-12-31 22:48 | XMS_ITS | Encounter Summary ---
Author Organization Formerly [facility] Address [facility] [place] [address] Care Team Providers Care Home Health Registered Nurse Name Role Phone Tami Olivia Primary Care Provider [phone] Encounter Details Date Type Department Care Team (Late st Contact Info) Description 11/01/2021 [place] [address] Ramon Manrique PA [facility] DR INTERVENTIONAL RADIOLOGY [place] [id number] Social History Tobacco Use Types Packs/Day Years [...] 2.78) performed by Gilmer Gutiérrez MD at [facility] MAIN OR ? ? PRO INJECTION ANES AGENT &/ STEROID INTERCOSTAL NERVE SINGLE LEVEL Left 03/29/2021 NERVE BLOCK, INTERCOSTAL NERVE (WRVU 1.18) performed by Gilmer Gutiérrez MD at [facility] OR ??? PRO THORACOSCOPY SURG LOBECTOMY Left 03/29/2021 @THORACOSCOPY,SURGICAL,W\LOBECTOMY,TOTAL OR SEGMENTAL (WRVU 24.64) performed by Johana Gutiérrez MD at [facility] MAIN OR ??? PRO THORACOSCOPY WITH MEDIASTINAL AND REGIONAL LYMPHADENECTOMY 03/29/2021 @THORACOSCOPY, SURG; W/MEDIASTINAL& REGIONAL LYMPHADENECTOMY (WRVU 4.12) performed by Gilmer Gutiérrez MD at [facility] OR ??? PRO THORACOSCOPY WITH WEDGE RESECTION AND ANATOMIC LUNG RESECTN Left 03/29/2021 @THORACOSCOPY, SURG; W/DX WEDGE RESC W/ANATOMIC LUNG RESC (WRVU 3) performed by Johana Gutiérrez MD at [facility] OR Social history and habits: Social History [...] AM EST Office Visit Cardiology at [address] [phone] Chrissy Zepeda CLINICAL ALLERGIST [facility] [place] [address] Scheduled Procedures Name Priority Associated Diagnoses Date/Ti me CARDIOVERSION-ELECTIVE (WRVU 2) atrial flutter ELECTROPHYSIOLOGY PROCEDURE Persistent atrial fibrillation CARDIOVERSION-ELECTIVE (WRVU 2) persistent atrial fibrillation TRANSESOPHAGEAL ECHOCARDIOGR AM (WRVU 2.3) persistent atrial fibrillation documented as of this encounter Results * (ABNORMAL) Hemogram (11/08/2021 10:27 AM EDT) White Blood Cell 8.8 4.0 - 9.5 x10(3)/mc L [facility] Red Blood Cell 4.28(L) 4.58 - 5.54 x10(6)/mc L [facility] Hemoglobin 13.1(L) 13.7 - 16.5 g/dL [facility] Hematocrit 38.3(L) 40.5 - 48.5 % [facility] Mean Cell Volume 89.5 82.9 - 93.1 fL [facility] Mean Cell Hemoglobin 30.6 27.5 - 32.1 pg [facility] Mean Cell Hemoglobin Concentration 34.2 32.0 - 35.7 g/dL [facility] Platelet 287 145 - 357 x10(3)/mc L [facility] RDW Standard Deviation 43.4 36.0 - 45.0 fL [facility] RDW coefficient of variation 13.2 11.4 - 13.8 % [facility] Mean Platelet Volume 9.3 7.6 - 12.9 fL [facility] NRBC% auto 0.0 % [facility] NRBC Absolute 0.000 0.000 - 0.000 x10(3)/mc L [facility] Blood 11/08/2021 10:2 7 AM EDT 11/08/2021 10:31 AM EDT Narrative Resulting Agency Comment Spec In Lab Sloan Parker DO HEMATOLOGY ORDERABLE S [facility] [place] [address] documented in this encounter Visit Diagnoses Diagnosis Squamous cell carcinoma of left lung documented in this encounter Care Teams Home Health Registered Nurse Relationship Specialty Start Date End Date Tami Olivia [address] [place] [address] PCP - General Family Medicine 12/30/20 documented as of this encounter
--- OUTSIDE RECORDS SUMMARY | 2023-12-31 22:48 | XMS_ITS | Encounter Summary ---
Author Organization [facility] [place] [address] Care Team Providers Care Client Service Manager Name Role Phone Tami Olivia Primary Care Provider Encounter Details Date Type Department Care Team (Late st Contact Info) Description 01/30/2022 Telephone [place] [phone] Amy Corbett, RN Social History Tobacco Use [...] AM EST Office Visit Cardiology at [address] [phone] Chrissy Zepeda APRN [facility] [place] [address] Scheduled Procedures Name Priority Associated Diagnoses Date/Ti me CARDIOVERSION-ELECTIVE (WRVU 2) atrial flutter ELECTROPHYSIOLOGY PROCEDURE Persistent atrial fibrillation CARDIOVERSION-ELECTIVE (WRVU 2) persistent atrial fibrillation TRANSESOPHAGEAL ECHOCARDIOGR AM (WRVU 2.3) persistent atrial fibrillation documented as of this encounter Visit Diagnoses Not on filedocumented in this encounter Care Teams Client Service Manager Relationship Specialty Start Date End Date Tami Olivia [address] [place] [address] PCP - General Family Medicine 12/30/20 documented as of this encounter
--- OUTSIDE RECORDS SUMMARY | 2023-12-31 22:48 | XMS_ITS | Encounter Summary ---
Author Organization [facility] Address [facility] [place] [address] Care Team Providers Care Account Solutions Analyst Name Role Phone Tami Olivia Primary Care Provider [phone] Reason for Visit * Auth/Cert (Routine) Specialty Diagnoses / Procedures Referred By Bert t Referred To Contact Diagnoses Pleural effusion, not elsewhere classified Malignant neoplasm of unspecified part of left bronchus or lung pleural effusion Procedures PRO THORACOSCOPY WITH BIOPSY OF PLEURA PRO BRONCHOSCOPY, DIAGNOSTIC THORACOSCOPY; WITH BIOPSY(IES) OF PLEURA (WRVU 4.58) BRONCHOSCOPY, DIAGNOSTIC (WRVU 2.78) Gilmer Foster MD [facility] [place] [address] [facility] Referral ID Status Reason Start Date Expiration Date Visits Re quested Visits Authorized [id number] 1 1 Encounter Details Date Type Department Care Team (Late st Contact Info) Description 02/08/2022 12:15 PM EST - 02/08/2022 3:16 PM EST [place] [address] Gilmer Foster MD [facility] [place] [address] THORACOSCOPY; WITH BIOPSY(IES) OF PLEURA (WRVU 4.58) [...] has recurred on each occasion. Hospital Course: Raajn Marquez was admitted to [facility] on 02/08/2022 via the SD. He [...] questions please contact the health personal care aide that requested your imaging first. Chest PA & Lateral (Generic) (Exam End: 02/10/2022 5:23 AM) Impression Enlarging left hydropneumothorax. Thank you for letting us participate in the care of this patient. If you are a health care provider and have any questions regarding this report, please contact the number below. For patients who have questions please contact the health personal care aide that requested your imaging first. Electronically signed by: Maryann Magallanes MD, [facility] ([phone]), at 02/10/2022 8:05 AM Pending Studies and [...] a nurse in the Thoracic Clinic at [phone]. After hours or on weekends or holidays please call: [phone] and ask to speak to the Thoracic [...] please call the thoracic surgery clinic at [phone]. Driving: No driving for 1 week or [...] the Thoracic Clinic or the Thoracic Surgeon harvest contractor after hours. Please take over the counter [...] our office if you have any questions. [phone] Future Appointments Date Time Provider Department Center 02/10/2022 5:00 AM [facility] DX ROOM 9 Xray [facility] Rad General Instructions Keep the Express Mini in an upright position and make sure the tubing stays firmly attached to the end of your chest tube. If it becomes disconnected you will need to reconnect it immediately and tape it securely. If you cannot get it reconnected you will need to go to the Emergency Room at [facility] immediately. Be sure to not let [...] and contact Dr. Gilmer Cardozo office at [phone] if the amount increases by 200 cc [...] contact the Thoracic Surgery office promptly at [phone]. Opioid PDMP 02/13/2021 [place] PDMP Query Date [...] Expires XR Chest PA & Lateral (Generic) [66816 [id number] Custom] 02/23/2022 08/25/2022 Process Instructions: Scheduling Instructions: Questions: Reason for exam and clinical history: s/p left VATS pleural biopsy Clinical information / bryan questions for radiologist: ?interval change Where will study be performed?: [facility] Radiology Portable exam?: Stat read required?: Date of injury if applicable: Requested Time: XR Chest PA & Lateral (Generic) [[id number] Custom] 02/24/2022 (Approximate) 08/26/2022 Process Instructions: Scheduling Instructions: Questions: Reason for exam and clinical history: s/p left vats pleural biopsy Clinical information / bryan questions for radiologist: eval for ptx and or effusion Where will study be performed?: [facility] Radiology Portable exam?: Stat read required?: Date of injury if applicable: Requested Time: Referral to Home Health [REF34 Custom] As directed Process Instructions: If no progress note charted, please enter Clinical details in comments. Scheduling Instructions: Comments: Please evaluate Rajan Marquez for admission to Home Health. [address] [facility] [address] Phone Number: Date of : 1950 Inpatient DOCUMENTATION FOR VNA SERVICES (INCLUDING THOSE PATIENTS WITH MEDICARE COVERAGE REQUIRING HOME VNA SERVICES AND/OR HOSPICE SERVICES) PATIENT'S LOCATION: Rajan Marquez [address] [facility] [address] Refrigeration Operator's Name: self/family In discussion with the attending physician, it is certified that this patient is under their care and that they, or a Nurse Practitioner,Clinical Nurse specialist or Physician Filament Cutter who is working directly with them, [...] Emergency Room or the Emergency Room at [facility] immediately. Check the Atrium Express Mini [...] your scheduled appointment. HOME HEALTH CARE AGENCY: [facility]. [address]oss[address] Vas[address] [facility] [address] PHONE: [phone] FAX: [phone] Start of care: within 24 to 48 hours of discharge Please note that any additional orders needs or changes will need to be obtained from this patient's PCP: Tami ALTMAN [address] / [place] [id number] All VNA agencies which cover the area of patient's residence have been reviewed, either verbally crow writing, and patient/family have chosen the home health care agency noted Questions: Disciplines Requested: Nursing Provider Contact Information: Primary Care Provider: Tami Olivia [phone] Discharge References/Attachments: Discharge References/Attachments None For questions regarding this document or issues relating to this hospitalization on the Thoracic Surgery Service, please contact Dr. Foster's office at . Signed: STEVE Black 02/10/2022 Thoracic Surgery [facility] CC: PCP: Tami Olivia Referring: Tami Olivia [address] [place] [address] documented in this encounter Discharge Instructions * [...] to go to the Emergency Room at [facility] immediately. Be sure to not let [...] and contact Dr. Gilmer Fosters office at [phone] if the amount increases by 200 cc [...] contact the Thoracic Surgery office promptly at [phone]. * Patient Instructions* Camilo Stevenson PA - 02/09/2022 11:12 AM EST Call if you have a fever of greater than 101 degrees, shaking chills, develop redness or drainage from your incision site(s), or if you have questions. During normal business hours, Saturday- Saturday 8:00 a.m.-5:00 p.m., please call to speak to a nurse in the Thoracic Clinic at [phone]. After hours or on weekends or holidays please call: [phone] and ask to speak to the Thoracic [...] please call the thoracic surgery clinic at [phone]. Driving: No driving for 1 week or [...] the Thoracic Clinic or the Thoracic Surgeon harvest contractor after hours. Please take over the counter [...] our office if you have any questions. [phone] Future Appointments Date Time Provider Department Center 02/10/2022 5:00 AM [facility] DX ROOM 9 Xray [facility] Rad documented in this encounter Medications at Time of Discharge Medication Sig Dispensed Refills Start Date End Date tamsulosin (Flomax) 0.4 mg Capsule Take 0.4 mg by mouth daily. hydrOXYchloroQUINE (Plaquenil) 200 mg Tablet Take 200 mg by mouth Daily. 04/04/2018 cholecalciferol, Vitamin D3, (Vitamin D3) 1,000 unit Tablet Take 1 tablet by mouth daily. 11/01/2014 Spiriva Respimat 2.5 mcg/actuation Mist 01/26/2022 acetaminophen [...] 1 puff into the lungs Daily. 02/17/2022 albuterol sulfate (Proair Digihaler) 90 mcg/actuation aero powdr breath act w/sensor 4 times daily as needed. 12/16/2023 documented as of this encounter Progress Notes * Malia Paredes RN - 02/10/2022 1:16 PM EST [facility] Short Stay Unit Discharge Note All [...] - 02/09/2022 11:04 AM EST Report from [place]. Arrived to room. CT to water seal with small, known, intermittent air leak. CT dressing with scant sanguineous drainage, L back dsg c/d/i. Oriented to room and placed on monitoring system. Awaiting lunch meal. [facility]. * Bi Baez MD - 02/09/2022 8:53 AM EST [facility] Department of Thoracic Surgery Inpatient Progress Note Patient Name: Rajan Marquez Patient : 1950 Patient [facility] Attending Surgeon: GILMER FOSTER ID: Rajan [...] Admission (Current) from 02/08/2022 in PACU at [facility] OfficeVisit from 01/29/2022 in Thoracic Surgery at [facility] Weight 75.8 kg (167 lb) 1 02/08/2022 [...] Result Value Ref Range Surgical Pathology Report [id number] Location: OR; OR22; A The signing pathologist has (i) examined the relevant preparation(s) for the specimen(s) and (ii) rendered or confirmed the diagnosis(es). . Frozen Section FROZEN SECTION DIAGNOSIS AFS - Left pleural biopsy, for frozen section (2 blocks): Atypical cells, cannot exclude malignancy, defer to permanent. 02/08/22 13:26 Electronically signed by: Malia Lacy MD Verified: 02/08/2022 13:50 Pathologist Performed at: -[facility] Dept. of Pathology, [place] [address] Baggage Agent Supervisor: Maria Ines Marrufo MD, FCAP, CLIA Certificate: [id number] This intraoperative consultation should be interpreted as [...] questions please contact the health personal care aide that requested your imaging first. Micro: Procedure Component Value Units Date/Time Fungus culture Pleural Fluid [[id number]] Collected: 02/08/22 1254 Lab Status: Preliminary result Specimen: Pleural Fluid Updated: 02/09/22 08 Fungus Culture No Fungus isolated to date Body Fluid Culture, Aerobic & Anaerobic Pleural Fluid [[id number]] Collected: 02/08/221253 Lab Status: Preliminary result Specimen: Pleural Fluid Updated: 02/09/22742 Body Fluid Culture, Aerobic [[id number]] Collected: 02/08/221253 Lab Status: Preliminary result Specimen: [...] Baez MD 02/09/2022 Thoracic Surgery Service Pager [phone] * Debbie Pride RN - 02/09/2022 8:44 [...] dressing is CDI. 0700: Report given to DISH WASHERDebbie VASQUEZ. Care assumed. * Juanita Sotomayor RN [...] IR Thoracentesis Left 11/08/2021 Ramírez Ramirez MD [facility] INTERVENTIONL RAD ??? PRO BRONCHOSCOPY, DIAGNOSTIC N/A 03/29/2021 BRONCHOSCOPY, DIAGNOSTIC (WRVU 2.78) performed by Gilmer Foster MD at [facility] MAIN OR ? ? PRO INJECTION ANES AGENT &/ STEROID INTERCOSTAL NERVE SINGLE LEVEL Left 03/29/2021 NERVE BLOCK, INTERCOSTAL NERVE (WRVU 1.18) performed by Gilmer Foster MD at [facility] OR ??? PRO THORACOSCOPY SURG LOBECTOMY Left 03/29/2021 @THORACOSCOPY,SURGICAL,W\LOBECTOMY,TOTAL OR SEGMENTAL (WRVU 24.64) performed by Johana Foster MD at [facility] OR ??? PRO THORACOSCOPY WITH MEDIASTINAL AND REGIONAL LYMPHADENECTOMY 03/29/2021 @THORACOSCOPY, SURG; W/MEDIASTINAL& REGIONAL LYMPHADENECTOMY (WRVU 4.12) performed by Gilmer Foster MD at [facility] OR ??? PRO THORACOSCOPY WITH WEDGE RESECTION AND ANATOMIC LUNG RESECTN Left 03/29/2021 @THORACOSCOPY, SURG; W/DX WEDGE RESC W/ANATOMIC LUNG RESC (WRVU 3) performed by Johana Foster MD at [facility] OR MEDS: No current facility-administered medications [...] Nieto MD 02/08/2022 Thoracic Surgery Service Pager [phone] documented in this encounter Miscellaneous Notes * [...] information for follow-up [facility], [place] [address] [place] [address] Transportation: family or friend will provide Wheelchair [...] plan. Natanael Sims RN, BSN Case Management [phone] * Care Management - Melania Salinas RN - 02/09/2022 2:26 PM EST RN/CM has reviewed with provider team. Admit: 02/08/2022 with anticipated discharge: 02/10/2022. Pt remains OBS status at this time. Pending UM review later today. Christie Salinas RN (Jonas) RN/CM - Cellphone: [phone] Pager: [phone] Covering Service RN/LACEY * Initial Assessments - [...] receiving care in [place] must abide by [place] law. The hierarchy [...] Current DME: none Home Address confirmed as: [address] [place] [id number] Social & Family Supports: All names listed [...] points: Addiction likely Health/Prescription Coverage: Primary Insurance: [facility] MANAGED MEDICARE Payor: [facility] MEDICARE / Plan: [facility] COMPLETE / Product Type: *No Producttype* / Secondary Insurance: N/A ; Prescription Coverage: Yes Preferred Pharmacy: [id number] - [place], [place] - [address] [place] [id number] Status: Patient is a : No Primary Care Provider listed: Tami BullockjaylamarKarlee [phone] Patient/Caregiver Goals of Treatment: Return home with [...] are placed. Patient requests referral to : [facility] [place] [address] PHONE: [phone] FAX: [phone] Expected date of discharge: 02/09/2022 vs 02/10/2022 Referral routed to the Transport Pilot for matching with agency/vendor and to provide [...] planningCecilia Salinas RN (Jonas) RN/CM - Cellphone: [phone] Pager: [phone] Covering Service RN/CM * Op Note - Gilmer Foster MD - 02/08/2022 12:40 PM EST [facility] Operative Note Patient Name: Rajan Marquez : [id number] MR#: [id number] Case Date: 02/08/2022 Surgeon: Surgeon(s) and Role: [...] tissue samples (in container) 1 Drains: 28 Estonian chest tube, left Surgical Closure: Primary Closure [...] copiously with warm normal saline. A 28 Estonian chest tube was placed through the anterior [...] AM EST Office Visit Cardiology at [address] [address] Chrissy Zepeda APRN [facility] [place] [address] Scheduled Procedures Name Priority Associated Diagnoses Date/Ti [...] TO PATHOLOGY Routine 02/08/2022 1:15 PM EST NON-STOCK RAISER FINAL REPORT Routine 02/08/2022 1:10 PM EST [...] Routine 02/08/2022 12:54 PM EST Bronchoscopy, Diagnostic (06164) 02/08/2022 12:00 PM EST Pleural effusion Squamous [...] questions please contact the health personal care aide that requested your imaging first. ? Electronically signed by: Marcus Edwards MD, [facility] ([phone]), at 03/06/2022 2:27 PM Narrative 03/06/2022 2:27 [...] have questions please contactthe health personal care aide that requested your imaging first. Gilmer Foster [...] questions please contact the health personal care aide that requested your imaging first. ? Electronically signed by: Maryann Magallanes MD, [facility] ([phone]), at 02/10/2022 8:05 AM Narrative 02/10/2022 8:05 [...] have questions please contactthe health personal care aide that requested your imaging first. Electronically signed by: Maryann Magallanes MD, [facility]([phone]), at 02/10/2022 8:05 AM Gilmer Foster MD [...] questions please contact the health personal care aide that requested your imaging first. ? Narrative [...] have questions please contactthe health personal care aide that requested your imaging first. Gilmer Foster MD IMG DX ORDERABLE S * Specimen to Pathology (02/08/2022 1:15 PM EST) AP Specimen 02/08/2022 1:15 PM EST 02/08/2022 1:15 PM EST Narrative [facility] - 02/08/2022 1:15 PM EST Specimen requisition ordered. ??Separate Pathology report to follow Gilmer Foster MD PATHOLOGY/CYTOLO GY ORDERABLES [facility] [place] [address] * Non-General Practitioner Final Report (02/08/2022 1:10 PM EST) Diagnosis Discussion [id number] ? Location: [facility]; [facility]; The signing pathologist has (i) examined the relevant preparation(s) for the specimen(s) and (ii) rendered or confirmed the diagnosis(es). . ? Non-General Practitioner Final DIAGNOSIS See Discussion Electronically signed by: ?Asher FLORES, Rory Swann Verified: ??02/10/2022 17:36 ??Cytopathologis t Performed at: ??-[facility] Dept. of Pathology, [place] [address] Baggage Agent Supervisor: Maria Ines Marrufo MD, FCAP, ??CLIA Certificate: [id number] DISCUSSION Pleural fluid: left (thoracentesis) - Predominantly [...] Cell Block 1. 02/10/2022 5:36 PM EST [facility] LEFT PLEURAL FLUID / Unknown 02/08/2022 1:10 PM EST 02/08/2022 1:10 PM EST Gilmer Foster MD PATHOLOGY/CYTOLO GY ORDERABLES Performing Organization Address [facility] Co de Phone Number [facility] [place] [address] * Cytopathology Non-Gynecological (02/08/2022 1:10 PM EST) AP Specimen 02/08/2022 1:10 PM EST 02/08/2022 1:10 PM EST Narrative [facility] - 02/08/2022 1:10 PM EST Specimen requisition ordered. ??Separate Pathology report to follow Gilmer Foster MD PATHOLOGY/CYTOLO GY ORDERABLES Performing Organization Address [facility] Co de Phone Number [facility] [place] [address] * Surgical Pathology Report (02/08/2022 1:01 PM EST) Final Diagnosis [id number] ? Location: [facility]; [facility]; A The signing pathologist has (i) examined [...] DO Verified: ??02/16/2022 10:09 ??Pathologist Performed at: ??-[facility] Dept. of Pathology, [place] [address] Baggage Agent Supervisor: Maria Ines Marrufo MD, FCAP, ??CLIA Certificate: [id number] DISCUSSION No malignancy is identified. ??The morphology [...] A2 ?CK20 ?Negative A2 ?CDX2 ?Negative A2 ?AUJ4aiyn ?Negative A2 ?Calretinin ?Rare positive cell (high [...] of soft, pink-white membranous tissue fragments. Sections/Processing: Service Supervisor sections in 2 cassettes labeled B1-B2. ??sns ?Frozen Section FROZEN SECTION DIAGNOSIS AFS - Left pleural biopsy, ?? for frozen section (2 blocks): Atypical cells, cannot exclude malignancy, defer to permanent. 02/08/22 13:26 Electronically signed by: ?Malia Lacy MD Verified: ??02/08/2022 13:50 ??Pathologist Performed at: ??-[facility] Dept. of Pathology, [place] [address] Baggage Agent Supervisor: Maria Ines Marrufo MD, FCAP, ??CLIA Certificate: [id number] This intraoperative consultation should be interpreted as a preliminary diagnosis pending review of the entire specimen and special studies, if any. A final Surgical Pathology report will follow this preliminary Frozen Section report(s). 02/16/2022 10:09 AM EST [facility] Frozen Specimen 02/08/2022 1 :01 PM EST 02/08/2022 1:01 PM EST Pleura 02/08/2022 1:01 PM EST 02/08/2022 1:01 PM EST Gilmer Foster MD PATHOLOGY/CYTOLO GY ORDERABLES Performing Organization Address [facility] Co de Phone Number [facility] [place] [address] [facility] [place] [address] * Specimen to Pathology (02/08/2022 1:01 PM EST) AP Specimen 02/08/2022 1:01 PM EST 02/08/2022 1:01 PM EST Narrative [facility] - 02/08/2022 1:01 PM EST Specimen requisition ordered. ??Separate Pathology report to follow Gilmer Foster MD PATHOLOGY/CYTOLO GY ORDERABLES Performing Organization Address [facility] Co de Phone Number [facility] [place] [address] * Flow Cytometry Report (02/08/2022 12:54 PM EST) Flow Cytometry Report [id number] ? Location: [facility]; [address] The signing pathologist has (i) examined [...] Ruddy Verified: ??02/09/2022 16:30 ??Hematopathologist Performed at: ??-[facility] Dept. of Pathology, [place] [address] Baggage Agent Supervisor: Maria Ines Marrufo MD, FCAP, ??CLIA Certificate: [id number] DISCUSSION Blasts based on CD45 expression and orthogonal light scatter, are not increased. The CD19 positive B-cells have a polytypic expression of surface immunoglobulin light chain ([place]:Lambda ratio at 1.7). The T-cells are an admixture of CD4+ and CD8+ T lymphocytes (ratio of 1.6). No loss or atypical intensity distributions are seen for any nixon T antigen (CD2, 3, 4+8, 5, 7). There is no increase in MW59-qrgtjfjc/CD3-ne g NK cells. Flow analysis is an ancillary study. A definite diagnosis requires correlation with the morphologic features of this process and if necessary, correlation with other ancillary studies like immunohistochemistry , enzyme cytochemistry and/or cyto/ molecular genetics. This test was developed and its performance characteristics determined by the Clinical Flow Cytometry Laboratory at [facility]. It has not been [...] high complexity clinical laboratory testing. SPECIMEN PROCESSING [id number] Cells for immunophenotypic analysis were derived from [...] cytology but has ??recurred on each occasion. [facility] 02/08/2022 12:5 4 PM EST Gilmer Foster MD PATHOLOGY/CYTOLO GY ORDERABLES Performing Organization Address [facility] Co de Phone Number [facility] [place] [address] * Body Fluid Culture, Aerobic (02/08/2022 12:54 PM EST) Body Fluid Culture No growth [facility] Gram Stain Cytocentrifuge Gram Stain performed No Neutrophils seen. No microorganisms seen. [facility] Pleural Fluid 02/08/2022 12: 54 PM EST 02/08/2022 2:17 PM EST Comment:Pleural fluid Narrative Resulting Agency Comment Spec In Lab Gilmer Foster MD MICROBIOLOGY - G ENERAL ORDERABLES Performing Organization Address [facility] [place] [address] * Immunophenotyping Flow Cytometry (02/08/2022 12:54 PM EST) Immunophenotyping Flow See Comment [facility] Comment: When completed by the Pathologist, the Flow Cytometry Report ([id number]) will display under the Pathology Results section within [facility]. Other 02/08/2022 12:5 4 PM EST 02/08/2022 2:07 PM EST Narrative Resulting Agency Comment Spec In Lab Gilmer Foster MD HEMATOLOGY ORDER PHILOMENA Performing Organization Address City/[facility] Co de Phone Number [facility] [place] [address] * AFB culture Pleural Fluid (02/08/2022 12:54 PM EST) Acid Fast Bacilli Culture No Acid Fast Bacilli isolated If active tuberculosis is suspected, the patient should be on [employer]OR[employer] PRECAUTIONS. Call Infection Prevention for assistance if needed. [facility] Acid Fast Stain No Acid Fast Bacilli seen [facility] Pleural Fluid 02/08/2022 12: 54 PM EST 02/08/2022 2:17 PM EST Comment:Pleural fluid Narrative Resulting Agency Comment Spec In Lab Gilmer Foster MD MICROBIOLOGY - G ENERAL ORDERABLES Performing Organization Address City/[facility]/[place] [address] * Fungus culture Pleural Fluid (02/08/2022 12:54 PM EST) Fungus Culture No Fungus isolated [facility] Pleural Fluid 02/08/2022 12: 54 PM EST 02/08/2022 2:17 PM EST Comment:Pleural fluid Narrative Resulting Agency Comment Spec In Lab Gilmer Foster MD MICROBIOLOGY - G [facility] ORDERABLES Performing Organization Address [facility] de Phone Number [facility] [place] [address] documented in this encounter Visit Diagnoses Diagnosis [...] subcutaneous injection 5,000 Units 5,000 Units, Subcutaneous, HOUSE FURNISHINGS SUPERVISOR TO O.R., 1 dose, On Stephanie [...] injection 5,000 Units (COMPLETED) 5,000 Units, Subcutaneous, HOUSE FURNISHINGS SUPERVISOR TO O.R., 1 dose, On Stephanie [...] OR OPEN, Routine 08 (Given - Provider: Debbei Pride RN) 0836 (Given - Provider: Malia [...] documented in this encounter Care Teams Account Solutions Analyst Relationship Specialty Start Date End Date Tami Olivia [address] [place] [address] PCP - General Family Medicine 12/30/20 documented as of this encounter
--- OUTSIDE RECORDS SUMMARY | 2023-12-31 22:48 | XMS_ITS | Encounter Summary ---
Author Organization [facility] Address [facility] [place] [address] Care Team Providers Care Direct Response Consultant Name Role Phone Tami Olivia Primary Care Provider [phone] Reason for Visit * Reason Onset Date Comments Post Procedure Call 02/12/2022 Encounter Details Date Type Department Care Team (Late st Contact Info) Description 02/12/2022 Telephone Thoracic Surgery at [facility] [place] [phone] Megan Reza, RN Post Procedure Call Social [...] 10:40 AM EST Office Visit Cardiology at [address] [address] Chrissy Zepeda APRN [facility] [address] Scheduled Procedures Name Priority Associated Diagnoses Date/Ti me CARDIOVERSION-ELECTIVE (WRVU 2) atrial flutter ELECTROPHYSIOLOGY PROCEDURE Persistent atrial fibrillation CARDIOVERSION-ELECTIVE (WRVU 2) persistent atrial fibrillation TRANSESOPHAGEAL ECHOCARDIOGR AM (WRVU 2.3) persistent atrial fibrillation documented as of this encounter Visit Diagnoses Not on filedocumented in this encounter Care Teams Direct Response Consultant Relationship Specialty Start Date End Date Tami Olivia [address] [place] [address] PCP - General Family Medicine 12/30/20 documented as of this encounter
--- OUTSIDE RECORDS SUMMARY | 2023-12-31 22:48 | XMS_ITS | Encounter Summary ---
Author Organization [facility] Address [facility] [place] [address] Care Team Providers Care Pot Feeder Name Role Phone Tami Olivia Primary Care Provider Encounter Details Date Type Department Care Team (Late st Contact Info) Description 01/03/2022 Ancillary Procedure Radiology Library at [facility] K[place] Bright [phone] Gilmer Gutiérrez MD [facility] [address] Social History Tobacco Use Types Packs/Day Years [...] AM EST Office Visit Cardiology at [address] [place] [phone] Chrissy Zepeda APRN [facility] [place] [address] Scheduled Procedures Name Priority Associated Diagnoses Date/Ti [...] CT Chest (01/03/2022 12:00 AM EDT) Narrative [facility] - 01/04/2022 7:48 PM EDT This exam is auto-finalizing. It's purpose is for storage only. Gilmer Gutiérrez MD IMG FILM LIBRARY ORDERABLES Performing Organization Address City/State/[facility] Co de Phone Number [place], [place] documented in this encounter Visit Diagnoses Not on filedocumented in this encounter Care Teams Pot Feeder Relationship Specialty Start Date End Date Tami Olivia [address] [place] [address] PCP - General Family Medicine 12/30/20 documented as of this encounter
--- OUTSIDE RECORDS SUMMARY | 2023-12-31 22:48 | XMS_ITS | Encounter Summary ---
Author Organization [facility] Address [facility] [place] [address] Care Team Providers Care Country Singer Name Role Phone Tami Olivia Primary Care Provider Encounter Details Date Type Department Care Team (Late st Contact Info) Description 12/07/2021 Ancillary Procedure Radiology Library at [facility] [place] [phone] Tami Olivia [address] [place], [place] [id number] Social History Tobacco Use Types Packs/Day Years [...] AM EST Office Visit Cardiology at [address] [place] [phone] Chrissy Zepeda APRN [facility] [place] [address] Scheduled Procedures Name Priority Associated Diagnoses Date/Ti [...] (12/07/2021 12:00 AM EDT) Narrative [facility] - 12/16/2021 12:57 AM EDT This exam is auto-finalizing. It's purpose is for storage only. Tami Olivia [facility] FILM LIBRARY OR DERABLES Performing Organization Address City/State/[facility] Co de Phone Number [place], [place] documented in this encounter Visit Diagnoses Not on filedocumented in this encounter Care Teams Country Singer Relationship Specialty Start Date End Date Tami Olivia [address] [place] [address] PCP - General Family Medicine 12/30/20 documented as of this encounter
--- OUTSIDE RECORDS SUMMARY | 2023-12-31 22:48 | XMS_ITS | Encounter Summary ---
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 Procedures CT Chest w Contrast Gilmer Gutiérrez MD [facility] [place] [address] [facility] [place] [address] Referral ID Status Reason Start Date Expiration Date V isits Requested Visits Authorized [id number] Closed Specialty Service Requested 11/14/2021 05/15/2023 1 1 Reason for Visit * Diagnostic Test (Routine) - Closed Specialty Diagnoses / Procedures Referred By Bert gautam Referred To Contact Radiology Diagnoses 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 Procedures CT Chest w Contrast Gilmer Gutiérrez MD [facility] [place] [address] [facility] [place] [address] Referral ID Status Reason Start Date Expiration Date V isits Requested Visits Authorized [id number] Closed Specialty Service Requested 11/14/2021 05/15/2023 1 1 Encounter Details Date Type Department Care Team (Latest Contact Info) Description 01/29/2022 12:10 PM EST - 01/29/2022 11:59 PM EST Hospital Encounter CT Scan at [facility] [place] [address] Gilmer Gutiérrez MD [facility] [place] [address] Status post lobectomy of lung; Primary squamous [...] 11/01/2014 Spiriva Respimat 2.5 mcg/actuation Mist 01/26/2022 rivaroxaban [...] AM EST Office Visit Cardiology at [address] [place] [address] Chrissy Zepeda APRN [facility] [place] [address] Scheduled Procedures Name Priority Associated Diagnoses Date/Ti [...] have questions please contact the health career guidance technician that requested your imaging first. ? Electronically signed by: Ludivina Cummings MD, [facility] ([phone]), at 01/29/2022 3:05 PM Narrative 01/29/2022 3:05 [...] who have questions please contactthe health career guidance technician that requested your imaging first. Electronically signed by: Ludivina Cummings MD, [facility]([phone]), at 01/29/2022 3:05 PM Gilmer Gutiérrez MD [...] mLs documented in this encounter Care Teams Skate Maker Relationship Specialty Start Date End Date Tami Olivia [address] [place] [address] PCP - General Family Medicine 12/30/20 documented as of this encounter
--- OUTSIDE RECORDS SUMMARY | 2023-12-31 22:48 | XMS_ITS | Encounter Summary ---
Author Organization [facility] Address [facility] [place] [address] Care Team Providers Care Dye House Hand Name Role Phone Tami Olivia Primary Care Provider [phone] Encounter Details Date Type Department Care Team (Latest Contact Info) Description 11/08/2021 10:25 AM EDT Laboratory Appointment Lab [address] [place] [phone] Squamous cell carcinoma of left lung Social [...] AM EST Office Visit Cardiology at [address] [phone] Chrissy Zepeda, VP RESPIRATORY [facility] [place] [address] Scheduled Procedures Name Priority Associated Diagnoses Date/Ti [...] Cell 8.8 4.0 - 9.5 x10(3)/ L [facility] Red Blood Cell 4.28(L) 4.58 - 5.54 x10(6)/[facility] Hemoglobin 13.1(L) 13.7 - 16.5 g/dL [facility] Hematocrit 38.3(L) 40.5 - 48.5 % [facility] Mean Cell Volume 89.5 82.9 - 93.1 fL [facility] Mean Cell Hemoglobin 30.6 27.5 - 32.1 pg [facility] Mean Cell Hemoglobin Concentration 34.2 32.0 - 35.7 g/dL [facility] Platelet 287 145 - 357 x10(3)/[facility] RDW Standard Deviation 43.4 36.0 - 45.0 [facility] RDW coefficient of variation 13.2 11.4 - 13.8 % [facility] Mean Platelet Volume 9.3 7.6 - 12.9 fL [facility] NRBC% auto 0.0 % [facility] NRBC Absolute 0.000 0.000 - 0.000 x10(3)/[facility] Blood 11/08/2021 10:2 7 AM EDT 11/08/2021 10:31 AM EDT Narrative Resulting Agency Comment Spec In Lab Sloan Parker DO HEMATOLOGY ORDERABLE S [facility] [place] [address] documented in this encounter Visit Diagnoses Diagnosis Squamous cell carcinoma of left lung documented in this encounter Care Teams Dye House Hand Relationship Specialty Start Date End Date Tami Olivia [address] [place] [address] PCP - General Family Medicine 12/30/20 documented as of this encounter
--- OUTSIDE RECORDS SUMMARY | 2023-12-31 22:48 | XMS_ITS | Encounter Summary ---
Author Organization [facility] Address [facility] [place] [address] Care Team Providers Care Wire Stitcher Machine Name Role Phone SudhakarJacksonTami Primary Care Provider [phone] Reason for Referral * Diagnostic Test (Routine) - Closed Specialty Diagnoses / Procedures Referred By Bert gautam Referred To Contact Radiology Diagnoses 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 Pleural effusion Procedures IR Thoracentesis Left Gilmer Gutiérrez MD [facility] [place] [address] [place] [address] Referral ID Status Reason Start Date Expiration Date V isits Requested Visits Authorized [id number] Closed Specialty Service Requested 10/30/2021 05/02/2023 1 1 Reason for Visit * Diagnostic Test (Routine) - Closed Specialty Diagnoses / Procedures Referred By Bert gautam Referred To Contact Radiology Diagnoses 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 Pleural effusion Procedures IR Thoracentesis Left Gilmer Gutiérrez MD [facility] [place] [address] [place] [address] Referral ID Status Reason Start Date Expiration Date V isits Requested Visits Authorized [id number] Closed Specialty Service Requested 10/30/2021 05/02/2023 1 1 Encounter Details Date Type Department Care Team (Latest Contact Info) Description 11/08/2021 10:32 AM EDT - 11/08/2021 11:59 PM EDT Hospital Encounter Radiology at [facility] [place] [address] Gilmer Gutiérrez MD [facility] [place] [address] Squamous cell carcinoma of left lung; Status [...] Canela RN - 11/08/2021 12:33 PM EDT [facility] Vascular and Interventional Radiology Discharge Instructions [...] is during regular office hours, please call [phone]. If it is after regular office hours, or on weekends or holidays, please call [phone] and ask to speak to the Senior Java Web Application Developer database administration manager for Interventional Radiology. Revised 09/05/16 documented in [...] of : 1950 AGE: 70 y.o. Address: [address] [place] [address] Phone: [phone] (home) Mobile: Telephone Information: Referring Provider: Gilmer Gutiérrez REASON FOR VISIT: Order Questions Answers Where will study be performed? [facility] Radiology [120] What is the purpose of [...] AM EST Office Visit Cardiology at [address] [address] Chrissy Zepeda APRN [facility] [place] [address] Scheduled Procedures Name Priority Associated Diagnoses Date/Ti [...] Status post lobectomy of lung Pleural effusion NON-MARINE OPERATIONS COORDINATOR FINAL REPORT Routine 11/08/2021 12:23 PM EDT [...] Gutiérrez MD IMG IR ORDERABLE S * Non-Thermoscrew Operator Final Report (11/08/2021 12:23 PM EDT) Diagnosis Discussion [id number] ? Location: [facility] The signing pathologist has (i) examined the relevant preparation(s) for the specimen(s) and (ii) rendered or confirmed the diagnosis(es). . ? Non-Thermoscrew Operator Final DIAGNOSIS See Discussion Electronically signed by: ?Rory Sterling MD Verified: ??11/11/2021 11:10 ??Cytopathologis t Performed at: ??-[facility] Dept. of Pathology, [place], [place] DISCUSSION Pleural fluid: left (thoracentesis) - [...] Cell Block 1. 11/11/2021 11:10 AM EDT [facility] LEFT PLEURAL FLUID / Unknown 11/08/2021 12:23 PM EDT 11/08/2021 12:23 PM EDT Gilmer Gutiérrez MD PATHOLOGY/CYTOLO GY ORDERABLES [facility] [place] [address] * Cell Count Body Fluid (11/08/2021 12:23 PM EDT) Body Fluid Source Pleural Fl M [facility] Color, Fld Yellow [facility] Appearance, Fld Clear [facility] WBC Count, Fld 455 <=499 /[facility]ORATORY Comment: All body fluid results should always be interpreted in light of the total clinical presentation of the patient, including clinical history, data from additional tests and other appropriate information. Polymorphonuclear cells BF % 4 % [facility] Comment: Polymorphonuclear cell percent and absolute values may contain Neutrophils, Eosinophils, and Basophils. Body fluid smear will be scanned manually for concordance. Mononuclear cells BF % 451 % [facility] Comment: Mononuclear cell percent and absolute values may contain Lymphocytes and Monocytes. Body fluid smear will be scanned manually for concordance. Polymorphonuclear cells BF ABS 1 /[facility]AT[facility] Comment: Polymorphonuclear cell percent and absolute values may contain Neutrophils, Eosinophils, and Basophils. Body fluid smear will be scanned manually for concordance. Mononuclear cells BF ABS 99 /[facility]ORATORY Comment: Mononuclear cell percent and absolute values may contain Lymphocytes and Monocytes. Body fluid smear will be scanned manually for concordance. Pleural Fluid Other / Unknown 11/08/2021 12:23 PM EDT 11/08/2021 1:33 PM EDT Narrative Resulting Agency Comment Spec In Lab Renu WILSON BODY FLUIDS AND STO OLS ORDERABLES Performing Organization Address City/[facility]/[place] [address] * Cytopathology Non-Gynecological (11/08/2021 11:09 AM EDT) AP Specimen 11/08/2021 11:0 9 AM EDT 11/08/2021 11:09 AM EDT Narrative [facility] - 11/08/2021 11:09 AM EDT Specimen requisition ordered. ??Separate Pathology report to follow Sloan Parker DO PATHOLOGY/CYTOLOGY O RDERABLES [facility] [place] [address] documented in this encounter Visit Diagnoses Diagnosis [...] mg documented in this encounter Care Teams Wire Stitcher Machine Relationship Specialty Start Date End Date Tami Olivia [address] [place] [address] PCP - General Family Medicine 12/30/20 documented as of this encounter
--- OUTSIDE RECORDS SUMMARY | 2023-12-31 22:48 | XMS_ITS | Encounter Summary ---
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 Procedures CT Chest w Contrast Gilmer Gutiérrez MD [facility] [place] [address] [facility] [place] [address] Referral ID Status Reason Start Date Expiration Date V isits Requested Visits Authorized [id number] Closed Specialty Service Requested 11/14/2021 05/15/2023 1 1 Encounter Details Date Type Department Care Team (Late st Contact Info) Description 11/14/2021 Orders [place] [address] Gilmer Gutiérrez MD [facility] [place] [address] Status post lobectomy of lung; Primary squamous [...] AM EST Office Visit Cardiology at [address] [address] Chrissy Zepeda APRN [facility] [place] [address] Scheduled Procedures Name Priority Associated Diagnoses Date/Ti [...] questions please contact the health lawn care worker that requested your imaging first. ? Narrative [...] patients who have questions please contactthe health lawn care worker that requested your imaging first. Electronically signed by: Ludivina Cummings MD, [facility]([phone]), at 01/29/2022 3:05 PM Gilmer Gutiérrez MD IMG CT ORDERABLE S * Creatinine (01/29/2022 11:45 AM EST) Creatinine 1.11 0.80 - 1.50 mg/dL [facility] Est Glomerular Filtration Rate 71 >=60 mL/min/1. 73 m?? 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
--- OUTSIDE RECORDS SUMMARY | 2023-12-31 22:48 | XMS_ITS | Encounter Summary ---
Author Organization [facility] [place] [address] Care Team Providers Care Real Estate Services Administrator Name Role Phone Tami Olivia Primary Care Provider [phone] Reason for Referral * Home Health Care (Routine) - Closed Specialty Diagnoses / Procedures Referred By Bert gautam Referred To Contact Diagnoses Mass of upper lobe of left lung Tami Olivia [address] [place] [address] [facility] & [address] [place] [address] Referral ID Status Reason Start Date Expiration Date V isits Requested Visits Authorized [id number] Closed Consult, Test & Treat 02/19/2022 08/18/2022 999 999 Reason for Visit * Reason Comments Wound Check (Drain problem) * Auth/Cert (Routine) Specialty Diagnoses / Procedures Referred By Bert t Referred To Contact Diagnoses Atrial flutter Procedures EMERGENCY Casa Rm MD [facility] [place] [address] [facility] Referral ID Status Reason Start Date Expiration Date Visits Re quested Visits Authorized [id number] 1 1 Encounter Details Date Type Department Care Team (Latest Contact Info) Description 02/17/2022 12:56 PM EST - 02/21/2022 1:04 PM EST Hospital Encounter Intermediate [place] [phone] Sommer Pryor MD [facility] [place] [address] Casa Alarcon MD [facility] [place] [address] Ramon Garcia MD [facility] [place] [address] Atrial flutter (Primary Dx); Mass of upper [...] Rajan Faulkner Patient Age: 71 y.o. Language: Maltese Race: White Ethnicity: Not nor Admit date: [...] hypertensive #Hydropneumothorax -Known to Thoracic Surgery at [facility] -Chest tube removed on 02/19/22 -Follow up with Thoracic Surgery in 2 weeks for repeat CXR Inpatient Provider Contact Information: MD Eren Flores PA-C Elise Bishop-Rimmer, PA-C Cardiovascular Medicine [phone] Discharge Diagnoses (Hospital Problems) and Secondary Diagnoses [...] RA. Labs with wbc 10, H&H 11/33, [id number], BUN 16, Cr 1. EKG Aflutter with [...] to follow up with Dr. Neeru Vasquez [facility]. He will follow up with [...] you do not miss any doses. Your automobile service writer will decide if you should stay on [...] of 8AM-5PM please call the Cardiology Clinic [phone] to speak with a nurse. All other hours please call the Hospital Gear Cutting Machine Operator [phone] and ask to speak to the puff iron operator on-call. Follow up Appointments: Doctor Where Phone # Date Time PCP Tami Olivia [address] [place] [address] 03/01/22 At 3:30pm Technician'S Helper - Dr. Joseph [facility] Cardiology [phone] 03/29/22 At 11:00AM Home oxygen therapy: N/A [...] a nurse in the Thoracic Clinic at [phone]. After hours or on weekends or holidays please call: [phone] and ask to speak to the Thoracic [...] Department Dept Phone 03/06/2022 12:30 PM [facility] PILY XRAY ROOM 1 XRay at [facility] Arrive at: Logging Tractor Operator Area Please go to Logging Tractor Operator Area 3L ([place] Location). 03/06/2022 1:00 PM Gilmer Foster MD Thoracic Surgery at [facility] Arrive at: Logging Tractor Operator Area [phone] Future Orders Complete By Expires Referral to Home Health [REF34 Custom] As directed Process Instructions: If no progress note charted, please enter Clinical details in comments. Scheduling Instructions: Comments: Please evaluate Rajan Faulkner for admission to Home Health. [address] [facility] [address] (home) Date of : 1950 DOCUMENTATION FOR VNA SERVICES (INCLUDING THOSE PATIENTS WITH MEDICARE COVERAGE REQUIRING HOME VNA SERVICES AND/OR HOSPICE SERVICES) PATIENT'S LOCATION: Rajan Faulkner [address] [facility] [address] (home) Cell: Telephone Information: Leadership Development Consultant's Name: Eleanor Prado In discussion with the attending physician, it is certified that this patient is under their care and that they, or a Nurse Practitioner,Clinical Nurse specialist or Physician High School Sports Coach who is working directly with them, had [...] status. Resumeprevious services. HOME HEALTH CARE AGENCY: [place] [facility]. [address] [place] [address] PHONE: [phone] FAX: [phone] Start of care: 24-48 hours following discharge [...] Tami Olivia [address] / [place] [address] All VNA agencies which cover the area [...] a nurse in the Thoracic Clinic at [phone]. After hours or on weekends or holidays please call: [phone] and ask to speak to the Thoracic [...] you do not miss any doses. Your automobile service writer will decide if you should stay on [...] of 8AM-5PM please call the Cardiology Clinic [phone] to speak with a nurse. All other hours please call the Hospital Gear Cutting Machine Operator [phone] and ask to speak to the puff iron operator on-call. Follow up Appointments: Doctor Where Phone # Date Time PCP Tami Olivia [address] [place] [address] 03/01/22 At 3:30pm Technician'S Helper - Dr. Joseph [facility] Cardiology [phone] 03/29/22 At 11:00AM Home oxygen therapy: N/A [...] for 7 days. 34 tablet 02/21/2022 03/06/2022 AMIOdarone (Paceron) 200 mg Tablet Take 1 [...] Progress Note Patient Name: Rajan Faulkner Service: FOOD SERVICES MANAGER / PA Responsible Attending: Ramon Garcia MD [...] SOB. A-flutter on tele. see scanned documents. LR=525r, Amiodarone gtt started, Mg+ & K+ repleted. See flowsheet for I/O. Safety precaution applied while in bed/OOB. Call w/in reach. PLAN MOVING FORWARD: D/C home tomorrow Continue to monitor per protocol Discharge planning as appropriate * Malia Nieto MD - 02/20/2022 8:31 AM EST [facility] Department of Thoracic Surgery Inpatient Consultation Note [place], [place] [address] FAX: Patient Name: Rajan Faulkner Patient : 1950 Patient Patient Location: [address] [place] [address] This consultation request was made by: SOMMER [...] 4.58) performed by Gilmer Foster MD at [facility] OR ??? PRO THORACOSCOPY WITH MEDIASTINAL AND REGIONAL LYMPHADENECTOMY 03/29/2021 @THORACOSCOPY, SURG; W/MEDIASTINAL& REGIONAL LYMPHADENECTOMY (WRVU 4.12) performed by Gilmer Foster MD at [facility] MAIN OR ??? PRO THORACOSCOPY WITH WEDGE RESECTION AND ANATOMIC LUNG RESECTN Left 03/29/2021 @THORACOSCOPY, SURG; W/DX WEDGE RESC W/ANATOMIC LUNG RESC (WRVU 3) performed by Johana Foster MD at [facility] OR Medications: Outpatient Medications Marked as Taking [...] on file Review of Systems: Patient denies WA/stroke/TIA/DVT/PE/cancer, problems with kidneys/liver/bleeding/anesthesia, fevers, [...] from 02/17/2022 in Intermediate Cardiac Care Unit [facility] Admission (Discharged) from 02/08/2022 in Short Stay Unit at [facility] Weight 72.7 kg (160 lb 4.4 [...] QTC Calculated (Bezet) 498 ms Calculated P Orrick -101 degrees Calculated R Orrick 75 degrees Calculated T Orrick -88 degrees INTERPRETATION Atrial flutter with 2:1 A-V conduction Minimal voltage criteria for LVH, may be normal variant ( [place] product ) Abnormal ECG When compared with ECG of 13-FEB-2021 15:15, Atrial flutter has replaced Sinus rhythm Vent. rate has increased BY [address] now depressed in Inferior leads T wave inversion now evident in Inferior leads Nonspecific T wave abnormality now evident in Lateral leads Confirmed by MD Glenda, Rodger ([id number]) on 02/18/2022 4:23:20 PM Comprehensive metabolic panel [...] QTC Calculated (Bezet) 549 ms Calculated P Orrick 89 degrees Calculated R Orrick 73 degrees Calculated T Orrick -131 degrees INTERPRETATION Atrial flutter with 2:1 A-V conduction Minimal voltage criteria for LVH, may be normal variant Abnormal ECG When compared with ECG of 17-FEB-2022 13:18, (unconfirmed) No significant change was found Confirmed by MD Radha, Ramon ([id number]) on 02/18/2022 1:36:02 PM Echocardiogram Transthoracic Result [...] QTC Calculated (Bezet) 514 ms Calculated R Orrick 71 degrees Calculated T Orrick -130 degrees INTERPRETATION Atrial flutter with variable A-V block Minimal voltage criteria for LVH, may be normal variant ( [place] product ) Abnormal ECG When compared with ECG of 18-FEB-2022 06:25, ST no longer depressed in Inferior leads Nonspecific T wave abnormality, improved in Anterolateral leads EKG 12 Lead Result Value Ref Range Ventricular rate 78 BPM QRS Duration 98 ms Q-T Interval 382 ms QTC Calculated (Bezet) 435 ms Calculated R Orrick 90 degrees Calculated T Orrick 72 degrees INTERPRETATION Atrial fibrillation Rightward axis [...] QTC Calculated (Bezet) 462 ms Calculated R Orrick 78 degrees Calculated T Orrick -112 degrees INTERPRETATION Atrial fibrillation with rapid [...] QTC Calculated (Bezet) 500 ms Calculated R Orrick 93 degrees Calculated T Orrick -81 degrees INTERPRETATION Sinus tachycardia Rightward axis [...] who have questions please contact the health client care coordinator that requested your imaging first. Electronically signed by: Matias Mata MD, [facility] ([phone]), at 02/17/2022 2:16 PM XR Chest PA [...] who have questions please contact the health client care coordinator that requested your imaging first. Electronically signed by: Sheeba Woods MD, [facility] ([phone]), at 02/18/2022 6:41 AM XR Chest PA [...] who have questions please contact the health client care coordinator that requested your imaging first. Electronically signed by: Sheeba Woods MD, [facility] ([phone]), at 02/19/2022 6:55 AM Micro: None Assessment: [...] Nieto MD 02/20/2022 Thoracic Surgery Service Pager [phone] * Rosalie Champagne PA - 02/20/2022 7:05 AM EST Images from the original note were not included. Inpatient Cardiology Progress Note Patient Name: Rajan Faulkner Service: FOOD SERVICES MANAGER / PA Responsible Attending: Ramon Garcia MD [...] Progress Note Patient Name: Rajan Faulkner Service: FOOD SERVICES MANAGER / PA Responsible Attending: Ramon Garcia MD [...] Progress Note Patient Name: Rajan Faulkner Service: FOOD SERVICES MANAGER / PA Responsible Attending: Ramon Garcia MD [...] Discussed with MD Eren Flores PA-C Pager [phone] 02/18/2022 Associated attestation - Ramon Garcia MD [...] RA. Labs with wbc 10, H&H 11/33, [id number], BUN 16, Cr 1. EKG Aflutter with [...] performed by Gil[facility] Foster [facility] OR ??? PRO THORACOSCOPY WITH MEDIASTINAL [...] [facility] MAIN OR Significant Family [...] B/L, no calf tenderness, swelling, or erythema. Neuro/VICE CHAIR: AAO x 3, No gross motor deficits. [...] drip Sarah Barnes MD 02/17/2022 Pager # [phone] documented in this encounter ED Notes * [...] changed. Electronically signed by: Matias Mata MD, [facility] ([phone]), at 02/17/2022 2:16 PM ED Course as of 02/17/22 1902 Sat Feb 17, 2022 1430 Patient remains tachycardic to 140s s/p three doses 5 mg metoprolol. Per records, patient was tachycardic to this same range during home health visits this week. Plan for cardiology involvement to discuss further management. 1515 Surgery regional geodetic advisor for Thoracic will see the patient in [...] pleural effusion compared to prior. General Surgery, regional geodetic advisor for Thoracic Surgery, examined the patient in [...] & Follow-up Care: Contact information for follow-up [facility] [address] [place] [address] Home Health & H[facility], [place] [address] [facility] [address] Transportation: family/friend (Eleanor) Functional status prior to [...] MEDICARE Payor: AARP MANAGED MEDICARE / Plan: [facility] COMPLETE / Product Type: *No [...] Donald PA - 02/19/2022 2:25 PM EST [facility] Department of Thoracic Surgery Inpatient Consultation Note [facility] [address] [place] [address] FAX: Patient Name: Rajan Faulkner Patient : 1950 Patient Patient Location: [address] [place] [address] This consultation request was made by: SOMMER [...] 2.78) performed by Gilmer Foster MD at [facility] OR ??? PRO BRONCHOSCOPY, DIAGNOSTIC N/A 02/08/2022 BRONCHOSCOPY, DIAGNOSTIC (WRVU 2.78) performed by Gilmer Foster MD at [facility] OR ? ? PRO INJECTION ANES AGENT &/ STEROID INTERCOSTAL NERVE SINGLE LEVEL Left 03/29/2021 NERVE BLOCK, INTERCOSTAL NERVE (WRVU 1.18) performed by Gilmer Foster MD at [facility] OR ??? PRO THORACOSCOPY SURG LOBECTOMY Left 03/29/2021 @THORACOSCOPY,SURGICAL,W\LOBECTOMY,TOTAL OR SEGMENTAL (WRVU 24.64) performed by Johana Foster MD at [facility] OR ??? PRO THORACOSCOPY WITH BIOPSY OF PLEURA Left 02/08/2022 THORACOSCOPY; WITH BIOPSY(IES) OF PLEURA (WRVU 4.58) performed by Gilmer Foster MD at [facility] OR ??? PRO THORACOSCOPY WITH MEDIASTINAL AND REGIONAL LYMPHADENECTOMY 03/29/2021 @THORACOSCOPY, SURG; W/MEDIASTINAL& REGIONAL LYMPHADENECTOMY (WRVU 4.12) performed by Gilmer Foster MD at [facility] OR ??? PRO THORACOSCOPY WITH WEDGE RESECTION AND ANATOMIC LUNG RESECTN Left 03/29/2021 @THORACOSCOPY, SURG; W/DX WEDGE RESC W/ANATOMIC LUNG RESC (WRVU 3) performed by Johana Foster MD at [facility] Medications: Outpatient Medications Marked as Taking [...] on file Review of Systems: Patient denies WA/stroke/TIA/DVT/PE/cancer, problems with kidneys/liver/bleeding/anesthesia, fevers, [...] from 02/17/2022 in Intermediate Cardiac Care Unit [facility] Admission (Discharged) from 02/08/2022 in Short Stay Unit at [facility] Weight 72.5 kg (159 lb 13.3 [...] QTC Calculated (Bezet) 498 ms Calculated P Orrick -101 degrees Calculated R Orrick 75 degrees Calculated T Orrick -88 degrees INTERPRETATION Atrial flutter with 2:1 A-V conduction Minimal voltage criteria for LVH, may be normal variant ( [place] product ) Abnormal ECG When compared with ECG of 13-FEB-2021 15:15, Atrial flutter has replaced Sinus rhythm Vent. rate has increased BY [address] now depressed in Inferior leads T wave inversion now evident in Inferior leads Nonspecific T wave abnormality now evident in Lateral leads Confirmed by MD Glenda, Rodger ([id number]) on 02/18/2022 4:23:20 PM Comprehensive metabolic panel [...] QTC Calculated (Bezet) 549 ms Calculated P Orrick 89 degrees Calculated R Orrick 73 degrees Calculated T Orrick -131 degrees INTERPRETATION Atrial flutter with 2:1 A-V conduction Minimal voltage criteria for LVH, may be normal variant Abnormal ECG When compared with ECG of 17-FEB-2022 13:18, (unconfirmed) No significant change was found Confirmed by MD Garcia Daniel ([id number]) on 02/18/2022 1:36:02 PM Echocardiogram Transthoracic Result [...] QTC Calculated (Bezet) 514 ms Calculated R Orrick 71 degrees Calculated T Orrick -130 degrees INTERPRETATION Atrial flutter with variable A-V block Minimal voltage criteria for LVH, may be normal variant ( [place] product ) Abnormal ECG When compared with ECG of 18-FEB-2022 06:25, ST no longer depressed in Inferior leads Nonspecific T wave abnormality, improved in Anterolateral leads EKG 12 Lead Result Value Ref Range Ventricular rate 78 BPM QRS Duration 98 ms Q-T Interval 382 ms QTC Calculated (Bezet) 435 ms Calculated R Orrick 90 degrees Calculated T Orrick 72 degrees INTERPRETATION Atrial fibrillation Rightward axis [...] QTC Calculated (Bezet) 462 ms Calculated R Orrick 78 degrees Calculated T Orrick -112 degrees INTERPRETATION Atrial fibrillation with rapid [...] who have questions please contact the health client care coordinator that requested your imaging first. Electronically signed by: Matias Mata MD, [facility] ([phone]), at 02/17/2022 2:16 PM XR Chest PA [...] who have questions please contact the health client care coordinator that requested your imaging first. Electronically signed by: Sheeba Woods MD, [facility] ([phone]), at 02/18/2022 6:41 AM XR Chest PA [...] who have questions please contact the health client care coordinator that requested your imaging first. Electronically signed by: Sheeba Woods MD, [facility] ([phone]), at 02/19/2022 6:55 AM Micro: None Assessment: [...] STEVE Peñaloza 02/19/2022 Thoracic Surgery Service Pager [phone] Associated attestation - Gilmer Foster MD - [...] MEDICARE Payor: AARP MANAGED MEDICARE / Plan: [facility] MA[facility]IC[facility] COMPLETE / Product Type: *No Producttype* / Secondary Insurance: N/A Last Physical Therapy Recommendation: with Last Occupational Therapy Recommendation: with Plan for discharge is: Home with family; services to be determined Agency Referrals: [facility] Transportation: family Barriers to discharge: Discharge [...] for further details. STEVE Johnson 02/19/2022 Pager [phone] * Plan of Care - Eren Cesar [...] for further details. STEVE Mack 02/18/2022 Pager [phone] * Initial Assessments - Isa Lew RN [...] surrogate would be surrogate decision maker per [place] decision making law. (Only good for 180 days) Any patient receiving care in [place] must abide by [place] law. The hierarchy for surrogate decision making [...] (i) The agent with financial power of admitted attorneys or a conservator appointed in accordance with [...] none Home Address confirmed as: [address] [facility] [address] Social & Family Supports: All names listed below confirmed with patient as current and correct Extended Emergency Contact Information Primary Emergency Contact: ELEANOR PRADO Mobile Relation: Significant Other Current Care Provided by: spouse/significant other (she helps with chest tube.) Provides Primary Care For: no one Quality of Family relationships: supportive, helpful Community Resources being provided currently: homecare agency- followed by [facility] Agency [facility]. [address] [place] [address] PHONE: [phone] FAX: [phone] Behavioral Health History: none discussed Substance Use/Abuse [...] Pertinent/Service Specific Information: Health/Prescription Coverage: Primary Insurance: [employer] MEDICARE Payor: [employer] MEDICARE / Plan: [facility] COMPLETE / Product Type: *No Producttype* / Secondary Insurance: N/A ONLY if patient has Medicare A&B - Does this patient have secondary insurance?: Yes ; Prescription Coverage: Yes Preferred Pharmacy: [facility] [address] [address] [place] Status: Patient is a : No Primary Care Provider confirmed: Tami Olivia [phone] Patient/Caregiver Goals of Treatment: Potential Needs for Transition of Care: home health care Agency Referrals: Resumption of services with: [facility]. [address] [facility] [address] PHONE: [phone] FAX: [phone] He gets RN services for his atrium. [...] with transition of care planning. Covering pager #[phone] for today. * Consult Note - Bi Baez MD - 02/18/2022 10:08 AM EST [facility] Department of Thoracic Surgery Inpatient Consultation Note [facility] [address] [place], [place] [address] FAX: Patient Name: Rajan Faulkner Patient : 1950 Patient Patient Location: [address] [place] [address] This consultation request was made by: SOMMER [...] [facility] MAIN OR Medications: Outpatient [...] on file Review of Systems: Patient denies WA/stroke/TIA/DVT/PE/cancer, problems with kidneys/liver/bleeding/anesthesia, fevers, [...] from 02/17/2022 in Intermediate Cardiac Care Unit [facility] Admission (Discharged) from 02/08/2022 in Short Stay Unit at [facility] Weight 73.3 kg (161 lb 8 [...] QTC Calculated (Bezet) 498 ms Calculated P Orrick -101 degrees Calculated R Orrick 75 degrees Calculated T Orrick -88 degrees INTERPRETATION Atrial flutter with 2:1 [...] QTC Calculated (Bezet) 549 ms Calculated P Orrick 89 degrees Calculated R Orrick 73 degrees Calculated T Orrick -131 degrees INTERPRETATION Atrial flutter with 2:1 [...] who have questions please contact the health client care coordinator that requested your imaging first. Electronically signed by: Matias Mata MD, [facility] ([phone]), at 02/17/2022 2:16 PM XR Chest PA [...] who have questions please contact the health client care coordinator that requested your imaging first. Electronically signed by: Shebea Woods MD, [facility] ([phone]), at 02/18/2022 6:41 AM Micro: None Assessment: [...] Baez MD 02/18/2022 Thoracic Surgery Service Pager [phone] Associated attestation - Anthony Tanner MD - [...] pharmacologic rhythm control strategy Jakob Hogan MD [employer] Driver [id number] * Consult Note - Lacy Rosario MD - 02/17/2022 1:25 PM EST [facility] Department of Surgery Inpatient Consult Note Consultation [...] Left 11/08/2021 Ashley, Ramírez Ziegler MD [facility] INTERVENTIONL RAD ??? PRO BRONCHOSCOPY, DIAGNOSTIC N/A 03/29/2021 BRONCHOSCOPY, DIAGNOSTIC (WRVU 2.78) performed by Gilmer Foster MD at [facility] MAIN OR ??? PRO BRONCHOSCOPY, DIAGNOSTIC N/A 02/08/2022 BRONCHOSCOPY, DIAGNOSTIC (WRVU 2.78) performed by Gilmer Foster MD at [facility] OR ? ? PRO INJECTION ANES AGENT &/ STEROID INTERCOSTAL NERVE SINGLE LEVEL Left 03/29/2021 NERVE BLOCK, INTERCOSTAL NERVE (WRVU 1.18) performed by Gilmer Foster MD at [facility] OR ??? PRO THORACOSCOPY SURG LOBECTOMY Left 03/29/2021 @THORACOSCOPY,SURGICAL,W\LOBECTOMY,TOTAL OR SEGMENTAL (WRVU 24.64) performed by Johana Foster MD at [facility] OR ??? PRO THORACOSCOPY WITH BIOPSY OF PLEURA Left 02/08/2022 THORACOSCOPY; WITH BIOPSY(IES) OF PLEURA (WRVU 4.58) performed by Gilmer Foster MD at [facility] OR ??? PRO THORACOSCOPY WITH MEDIASTINAL AND REGIONAL LYMPHADENECTOMY 03/29/2021 @THORACOSCOPY, SURG; W/MEDIASTINAL& REGIONAL LYMPHADENECTOMY (WRVU 4.12) performed by Gilmer Foster MD at [facility] OR ??? PRO THORACOSCOPY WITH WEDGE RESECTION AND ANATOMIC LUNG RESECTN Left 03/29/2021 @THORACOSCOPY, SURG; W/DX WEDGE RESC W/ANATOMIC LUNG RESC (WRVU 3) performed by Johana Foster MD at [facility] OR Medications No current facility-administered medications on [...] If you have any questions, please page [phone]. [X] Consult service to continue to follow [...] AM EST Office Visit Cardiology at [address] [address] Chrissy Zepeda APRN [facility] [place] [address] Scheduled Procedures Name Priority Associated Diagnoses Date/Ti [...] (Bezet) 488 ms MUSE SYSTEM Calculated P Orrick 131 degrees MUSE SYSTEM Calculated R Orrick 71 degrees MUSE SYSTEM Calculated T Orrick -83 degrees MUSE SYSTEM INTERPRETATION Atrial flutter with 2:1 A-V conduction Minimal voltage criteria for LVH, may be normal variant ( [place] product ) Nonspecific ST abnormality Abnormal ECG When compared with ECG of 20-FEB-2022 07:59, (unconfirmed) No significant change was found I personally reviewed the tracing and edited the fellows interpretation Confirmed by fellow Rudi Guzmán ([id number]) on 02/22/2022 7:13:33 AM Confirmed by MD Rojas David ([id number]) on 02/24/2022 4:32:44 PM MUSE SYSTEM 02/21/2022 6:21 AM EST 02/24/2022 4:32 PM EST Sarah Barnes MD ECG ORDERABLES MUSE SYSTEM * Scan, Peripheral Blood (02/21/2022 3:56 AM EST) Pathologist [facility] Plat estimate Normal [facility] [facility] RBC Morphology Abnormal [facility] Ovalocytes 1-5 /HPF [facility] Blood 02/21/2022 3:56 AM EST 02/21/2022 4:30 AM EST Narrative Resulting Agency Comment Spec In Lab Sarah Barnes MD HEMATOLOGY ORDERABLE S [facility] [place] [address] * (ABNORMAL) Differential, Automated (02/21/2022 3:56 AM EST) Pathologist [facility] Neutrophil % 73.9 % [facility] Neutrophil Absolute 9.07(H) 1.70 - 6.10 x10(3)/mc L [facility] Lymph % 12.0 % [facility] Lymphocytes Abs 1.5 0.9 - 3.2 x10(3)/mc L [facility] Monocyte % 13.1 % [facility] Monocyte Abs 1.6(H) 0.3 - 0.9 x10(3)/mc L [facility] Eos % 0.2 % [facility] Eosinophils Abs 0.0 0.0 - 0.4 x10(3)/ L [facility] Basophil % 0.3 % [facility] Baso Absolute 0.0 0.0 - 0.1 x10(3)/ L [facility] Immature Gran % 0.50 % [facility] Comment: Immature granulocytes(IG's)percentage and absolute count will include metamyelocytes, myelocytes, and promyelocytes. Blood smears from CBCs yielding IG's will be scanned manually for concordance. If this scan disagrees with the automated IG or if promyelocytes are noted, a manual differential will be performed. Immature Gran Absolute 0.06(H) 0.00 - 0.04 x10(3)/ L [facility] Blood 02/21/2022 3:56 AM EST 02/21/2022 4:30 AM EST Narrative Resulting Agency Comment Spec In Lab Sarah Barnes MD HEMATOLOGY ORDERABLE S Performing Organization Address City/State/[facility] Co de Phone Number [facility] [place] [address] * (ABNORMAL) Hemogram (02/21/2022 3:56 AM EST) White Blood Cell 12.3(H) 4.0 - 9.5 x10(3)/mc L [facility] Red Blood Cell 3.59(L) 4.58 - 5.54 x10(6)/ L [facility] Hemoglobin 10.0(L) 13.7 - 16.5 g/dL [facility] Hematocrit 30.2(L) 40.5 - 48.5 % [facility] Mean Cell Volume 84.1 82.9 - 93.1 fL [facility] Mean Cell Hemoglobin 27.9 27.5 - 32.1 pg [facility] Mean Cell Hemoglobin Concentration 33.1 32.0 - 35.7 g/dL [facility] Platelet 310 145 - 357 x10(3)/mc L [facility] RDW Standard Deviation 43.2 36.0 - 45.0 fL [facility] RDW coefficient of variation 13.9(H) 11.4 - 13.8 % [facility] Mean Platelet Volume 9.2 7.6 - 12.9 fL [facility] NRBC% auto 0.0 % [facility] NRBC Absolute 0.000 0.000 - 0.000 x10(3)/mc L [facility] Blood 02/21/2022 3:56 AM EST 02/21/2022 4:30 AM EST Narrative Resulting Agency Comment Spec In Lab Sarah Barnes MD HEMATOLOGY ORDERABLE S Performing Organization Address [facility] de Phone Number [facility] [place] [address] * Magnesium (02/21/2022 3:56 AM EST) Magnesium 0.85 0.69 - 1.07 mmol/L [facility] Blood 02/21/2022 3:56 AM EST 02/21/2022 4:30 AM EST Narrative Resulting Agency Comment Spec In Lab Sarah Barnes MD CHEMISTRY ORDERABLES Performing Organization Address [facility] de Phone Number [facility] [place] [place] [address] * (ABNORMAL) BMP w/fasting Glucose (02/21/2022 3:56 AM EST) Glucose Fasting 110(H) 65 - 99 mg/dL [facility] Comment: ?Fasting* Glucose Interpretive [...] of Diabetes Mellitus, Position Statement from the [employer]. ??Diabetes Care, Volume 33, Supplement 1, Mar 2009 Blood Urea Nitrogen 16 10 - 20 mg/dL [facility] Creatinine 1.04 0.80 - 1.50 mg/dL [facility] Sodium 135 135 - 145 mmol/L [facility] Potassium 4.0 3.5 - 5.0 mmol/L [facility] Comment: Please note: ??Patients with WBC >100,000 may have falsely elevated Potassium levels. ??For accurate Potassium quantification in these patients send serum separator tube (gold top) for subsequent determinations. ??Contact the Clinical Chemistry Laboratory if there are any questions. Chloride 101 98 - 107 mmol/L [facility] Carbon Dioxide 24 22 - 31 mmol/L [facility] Anion Gap 10 5 - 15 mmol/L [facility] Calcium 8.9 8.5 - 10.5 mg/dL [facility] Est Glomerular Filtration Rate 76 >=60 mL/min/1. 73 m?? [facility] Comment: This patient's estimated [...] Barnes MD CHEMISTRY ORDERABLES [facility] [place] [address] * EKG 12 Lead (02/20/2022 7:59 AM EST) Ventricular rate 140 BPM MUSE SYSTEM Atrial Rate 140 BPM MUSE SYSTEM P-R Interval 176 ms MUSE SYSTEM QRS Duration 98 ms MUSE SYSTEM Q-T Interval 328 ms MUSE SYSTEM QTC Calculated (Bezet) 500 ms MUSE SYSTEM Calculated R Orrick 93 degrees MUSE SYSTEM Calculated T Orrick -81 degrees MUSE SYSTEM INTERPRETATION Atrial flutter with 2:1 A-V conduction Left posterior fascicular block Minimal voltage criteria for LVH, may be normal variant ( [place] product ) Abnormal ECG When compared with ECG of 19-FEB-2022 10:55, Atrial flutter has replaced Atrial fibrillation I personally reviewed the tracing and edited the fellows interpretation Confirmed by fellow Rudi Guzmán ([id number]) on 02/20/2022 4:12:13 PM Confirmed by Cindy [...] small air component. 2. ??Additional unchanged loculated [id number] left pleural effusion. 3. ??Unchanged left lung atelectasis. Thank you for letting us participate in the care of this patient. ??If you are a health care provider and have any questions regarding this report, please contact the number below. ??For patients who have questions please contact the health client care coordinator that requested your imaging first. ? Electronically signed by: Yosef Earl MD, [facility] ([phone]), at 02/20/2022 8:52 AM Narrative 02/20/2022 8:52 [...] small air component. 2. Additional unchanged loculated [id number] left pleuraleffusion. 3. Unchanged left lung atelectasis. Thank you for letting us participate in the care of this patient. If youare a health care provider and have any questions regarding this report,please contact the number below. For patients who have questions please contactthe health client care coordinator that requested your imaging first. Electronically signed by: Yosef Earl MD, [facility]([phone]), at 02/20/2022 8:52 AM Ramon Garcia MD IMG DX ORDERABLES * (ABNORMAL) Differential, Automated (02/20/2022 4:29 AM EST) Neutrophil % 71.7 % [facility] Neutrophil Absolute 7.04(H) 1.70 - 6.10 x10(3)/mc L [facility] Lymph % 15.7 % [facility] Lymphocytes Abs 1.5 0.9 - 3.2 x10(3)/mc L [facility] Monocyte % 11.9 % [facility] Monocyte Abs 1.2(H) 0.3 - 0.9 x10(3)/mc L [facility] Eos % 0.2 % [facility] Eosinophils Abs 0.0 0.0 - 0.4 x10(3)/mc L [facility] Basophil % 0.3 % [facility] Baso Absolute 0.0 0.0 - 0.1 x10(3)/mc L [facility] Immature Gran % 0.20 % [facility] Comment: Immature granulocytes(IG's)percentage and absolute count will include metamyelocytes, myelocytes, and promyelocytes. Blood smears from CBCs yielding IG's will be scanned manually for concordance. If this scan disagrees with the automated IG or if promyelocytes are noted, a manual differential will be performed. Immature Gran Absolute 0.02 0.00 - 0.04 x10(3)/mc L [facility] Blood 02/20/2022 4:29 AM EST 02/20/2022 4:47 AM EST Narrative Resulting Agency Comment Spec In Lab Sarah Barnes MD HEMATOLOGY ORDERABLE S [facility] [place] [address] * (ABNORMAL) Hemogram (02/20/2022 4:29 AM EST) White Blood Cell 9.8(H) 4.0 - 9.5 x10(3)/mc L [facility] Red Blood Cell 3.80(L) 4.58 - 5.54 x10(6)/mc L [facility] Hemoglobin 10.6(L) 13.7 - 16.5 g/dL [facility] Hematocrit 31.6(L) 40.5 - 48.5 % [facility] Mean Cell Volume 83.2 82.9 - 93.1 fL [facility] Mean Cell Hemoglobin 27.9 27.5 - 32.1 pg [facility] Mean Cell Hemoglobin Concentration 33.5 32.0 - 35.7 g/dL [facility] Platelet 295 145 - 357 x10(3)/mc L [facility] RDW Standard Deviation 42.9 36.0 - 45.0 fL [facility] RDW coefficient of variation 14.0(H) 11.4 - 13.8 % [facility] Mean Platelet Volume 9.2 7.6 - 12.9 fL [facility] NRBC% auto 0.0 % [facility] NRBC Absolute 0.000 0.000 - 0.000 x10(3)/mc L [facility] Blood 02/20/2022 4:29 AM EST 02/20/2022 4:47 AM EST Narrative Resulting Agency Comment Spec In Lab Sarah Barnes MD HEMATOLOGY ORDERABLE S [facility] [place] [address] * Magnesium (02/20/2022 4:29 AM EST) Magnesium 0.87 0.69 - 1.07 mmol/L [facility] Blood 02/20/2022 4:29 AM EST 02/20/2022 4:47 AM EST Narrative Resulting Agency Comment Spec In Lab Sarah Barnes MD CHEMISTRY ORDERABLES [facility] [place] [address] * (ABNORMAL) BMP w/fasting Glucose (02/20/2022 4:29 AM EST) Glucose Fasting 108(H) 65 - 99 mg/dL [facility] Comment: ?Fasting* Glucose Interpretive [...] of Diabetes Mellitus, Position Statement from the [employer]. ??Diabetes Care, Volume 33, Supplement 1, Mar 2009 Blood Urea Nitrogen 20 10 - 20 mg/dL [facility] Creatinine 1.01 0.80 - 1.50 mg/dL [facility] Sodium 137 135 - 145 mmol/L [facility] Potassium 3.9 3.5 - 5.0 mmol/L [facility] Comment: Please note: ??Patients with WBC >100,000 may have falsely elevated Potassium levels. ??For accurate Potassium quantification in these patients send serum separator tube (gold top) for subsequent determinations. ??Contact the Clinical Chemistry Laboratory if there are any questions. Chloride 103 98 - 107 mmol/L [facility] Carbon Dioxide 23 22 - 31 mmol/L [facility] Anion Gap 11 5 - 15 mmol/L [facility] Calcium 8.7 8.5 - 10.5 mg/dL [facility] Est Glomerular Filtration Rate 79 >=60 mL/min/1. 73 m?? [facility] [...] MD CHEMISTRY ORDERABLES Performing Organization Address [facility] Co de Phone Number [facility] [place] [address] * Heparin (unfractionated) Level (02/19/2022 12:35 PM EST) UF Heparin 0.22 IU/mL [facility] Comment: [...] MD HEMATOLOGY ORDERABLE S Performing Organization Address [facility] Co de Phone Number [facility] [place] [address] * EKG 12 Lead (02/19/2022 10:55 AM EST) Ventricular rate 121 BPM MUSE SYSTEM QRS Duration 108 ms MUSE SYSTEM Q-T Interval 326 ms MUSE SYSTEM QTC Calculated (Bezet) 462 ms MUSE SYSTEM Calculated R Orrick 78 degrees MUSE SYSTEM Calculated T Orrick -112 degrees MUSE SYSTEM INTERPRETATION Atrial fibrillation with rapid ventricular response Minimal voltage criteria for LVH, may be normal variant ( [place] product ) Nonspecific T wave abnormality Abnormal [...] Garcia MD ECG ORDERABLES Performing Organization Address [facility] Phone Number MUSE SYSTEM * EKG 12 Lead (02/19/2022 9:38 AM EST) Ventricular rate 78 BPM MUSE SYSTEM QRS Duration 98 ms MUSE SYSTEM Q-T Interval 382 ms MUSE SYSTEM QTC Calculated (Bezet) 435 ms MUSE SYSTEM Calculated R Orrick 90 degrees MUSE SYSTEM Calculated T Orrick 72 degrees MUSE SYSTEM INTERPRETATION Likely Normal sinus rhythm with frequent Premature atrial complexes Rightward axis Abnormal ECG When compared with ECG of 19-FEB-2022 06:14, (unconfirmed ) Patient is now in sinus rhythm Vent. rate has decreased BY ??66 BPM T wave inversion now evident in Anterior leads Confirmed by fellow MD Nielsen Daniel ([id number]) on 02/19/2022 10:47:28 AM Confirmed by MD Corbett Eric ([id number]) on 02/20/2022 9:04:52 AM MUSE SYSTEM 02/19/2022 9:38 AM EST 02/20/2022 9:04 AM EST Sarah Barnes MD ECG ORDERABLES Performing Organization Address [facility] Co az Phone Number MUSE SYSTEM * EKG 12 Lead (02/19/2022 6:14 AM EST) Ventricular rate 144 BPM MUSE SYSTEM Atrial Rate 300 BPM MUSE SYSTEM QRS Duration 90 ms MUSE SYSTEM Q-T Interval 332 ms MUSE SYSTEM QTC Calculated (Bezet) 514 ms MUSE SYSTEM Calculated R Orrick 71 degrees MUSE SYSTEM Calculated T Orrick -130 degrees MUSE SYSTEM INTERPRETATION Atrial flutter with variable A-V block Minimal voltage criteria for LVH, may be normal variant ( [place] product ) Abnormal ECG When compared with ECG of 19-FEB-2022 01:17, (unconfirmed) No significant change was found Confirmed by fellow MD Morales, Ramon ([id number]) on 02/19/2022 10:45:05 AM Confirmed by MD Aric, Emre ([id number]) on 02/20/2022 9:04:43 AM MUSE SYSTEM 02/19/2022 6:14 AM EST 02/20/2022 9:04 AM EST Ramon Garica MD ECG ORDERABLES MUSE SYSTEM * XR [...] who have questions please contact the health client care coordinator that requested your imaging first. ? Electronically signed by: Sheeba Woods MD, [facility] ([phone]), at 02/19/2022 6:55 AM Narrative 02/19/2022 6:55 [...] patients who have questions please contactthe health client care coordinator that requested your imaging first. Ramon Garcia MD IMG DX ORDERABLES * Hepatic Function Panel (02/19/2022 4:01 AM EST) Protein, Total 6.7 6.1 - 8.0 g/dL [facility] Albumin 3.3 3.2 - 5.2 g/dL [facility] Aspartate Aminotransferase Not Perf 0 - 39 [facility] Comment: Called by: FRANCISCO, Read back by: Naomie Monteiro, Date/Time:02/19/22 11:59. Unable to quantitate due to sample hemolysis. ??Sample redraw suggested. Alanine Aminotransferase 13 0 - 55 unit/L [facility] Alkaline Phosphatase 72 40 - 130 unit/L [facility] Bilirubin, Total 0.4 0.2 - 1.3 mg/dL [facility] Bilirubin, Direct 0.1 0.0 - 0.3 mg/dL [facility] Blood Venous Draw / Unknown 02/19/2022 4:01 AM EST 02/19/2022 5:01 AM EST Narrative Resulting Agency Comment Spec In Lab Rosalie IWLSON CHEMISTRY ORDER PHILOMENA [facility] [place] [address] * (ABNORMAL) Differential, Automated (02/19/2022 4:01 AM EST) Neutrophil % 70.0 % [facility] Neutrophil Absolute 7.63(H) 1.70 - 6.10 x10(3)/mc L [facility] Lymph % 17.6 % [facility] Lymphocytes Abs 1.9 0.9 - 3.2 x10(3)/mc L [facility] Monocyte % 11.2 % [facility] Monocyte Abs 1.2(H) 0.3 - 0.9 x10(3)/mc L [facility] Eos % 0.4 % [facility] Eosinophils Abs 0.0 0.0 - 0.4 x10(3)/mc L [facility] Basophil % 0.4 % [facility] Baso Absolute 0.0 0.0 - 0.1 x10(3)/mc L [facility] Immature Gran % 0.40 % [facility] Comment: Immature granulocytes(IG's)percentage and absolute count will include metamyelocytes, myelocytes, and promyelocytes. Blood smears from CBCs yielding IG's will be scanned manually for concordance. If this scan disagrees with the automated IG or if promyelocytes are noted, a manual differential will be performed. Immature Gran Absolute 0.04 0.00 - 0.04 x10(3)/mc L [facility] Blood 02/19/2022 4:01 AM EST 02/19/2022 5:00 AM EST Narrative Resulting Agency Comment Spec In Lab Sarah Barnes MD HEMATOLOGY ORDERABLE S Performing Organization Address City/[facility]/ZIP Co de Phone Number [facility] [place] [address] * (ABNORMAL) Hemogram (02/19/2022 4:01 AM EST) White Blood Cell 10.9(H) 4.0 - 9.5 x10(3)/mc L [facility] Red Blood Cell 4.19(L) 4.58 - 5.54 x10(6)/mc L [facility] Hemoglobin 11.7(L) 13.7 - 16.5 g/dL [facility] Hematocrit 35.4(L) 40.5 - 48.5 % [facility] Mean Cell Volume 84.5 82.9 - 93.1 fL [facility] Mean Cell Hemoglobin 27.9 27.5 - 32.1 pg [facility] Mean Cell Hemoglobin Concentration 33.1 32.0 - 35.7 g/dL [facility] Platelet 279 145 - 357 x10(3)/mc L [facility] RDW Standard Deviation 43.1 36.0 - 45.0 fL [facility] RDW coefficient of variation 14.0(H) 11.4 - 13.8 % [facility] Mean Platelet Volume 10.1 7.6 - 12.9 fL [facility] NRBC% auto 0.0 % [facility] NRBC Absolute 0.000 0.000 - 0.000 x10(3)/mc L [facility] Blood 02/19/2022 4:01 AM EST 02/19/2022 5:00 AM EST Narrative Resulting Agency Comment Spec In Lab Sarah Barnes MD HEMATOLOGY ORDERABLE S Performing Organization Address City/[facility]/ZIP Co de Phone Number [facility] [place] [address] * Heparin (unfractionated) Level (02/19/2022 4:01 AM EST) Pathologist [facility] UF Heparin 0.19 IU/mL [facility] Comment: Specimen drawn more than one [...] Lab Sarah Barnes MD HEMATOLOGY ORDERABLE S [facility] [place] [address] * Magnesium (02/19/2022 4:01 AM EST) [facility] Magnesium 0.82 0.69 - 1.07 mmol/L [facility] Blood 02/19/2022 4:01 AM EST 02/19/2022 5:00 AM EST Narrative Resulting Agency Comment Spec In Lab Sarah Barnes MD CHEMISTRY ORDERABLES [facility] [place] [address] * BMP w/fasting Glucose (02/19/2022 4:01 AM EST) Pathologist [facility] Glucose Fasting 96 65 - 99 mg/dL [facility] Comment: ?Fasting* [...] of Diabetes Mellitus, Position Statement from the [place] [employer]. ??Diabetes Care, Volume 33, Supplement 1, Mar 2009 Blood Urea Nitrogen 19 10 - 20 mg/dL [facility] Creatinine 1.07 0.80 - 1.50 mg/dL [facility] Sodium 137 135 - 145 mmol/L [facility] Potassium 4.3 3.5 - 5.0 mmol/L [facility] Comment: Please note: ??Patients with WBC >100,000 may have falsely elevated Potassium levels. ??For accurate Potassium quantification in these patients send serum separator tube (gold top) for subsequent determinations. ??Contact the Clinical Chemistry Laboratory if there are any questions. Chloride 101 98 - 107 mmol/L [facility] Carbon Dioxide 23 22 - 31 mmol/L [facility] Anion Gap 13 5 - 15 mmol/L [facility] Calcium 9.4 8.5 - 10.5 mg/dL [facility] Est Glomerular Filtration Rate 74 >=60 mL/min/1. 73 m?? [facility] Comment: This patient's estimated [...] Lab Ikram Ullah MD CHEMISTRY ORDERABLES [facility] [place] [address] * EKG 12 Lead (02/19/2022 1:17 AM EST) Ventricular rate 137 BPM MUSE SYSTEM Atrial Rate 300 BPM MUSE SYSTEM QRS Duration 96 ms MUSE SYSTEM Q-T Interval 260 ms MUSE SYSTEM QTC Calculated (Bezet) 392 ms MUSE SYSTEM Calculated P Orrick 116 degrees MUSE SYSTEM Calculated R Orrick 83 degrees MUSE SYSTEM Calculated T Orrick -124 degrees MUSE SYSTEM INTERPRETATION Atrial flutter with variable A-V block Nonspecific ST and T wave abnormality Abnormal ECG When compared with ECG of 18-FEB-2022 06:25, No significant change was found Confirmed by fellow MD Morales, Ramon ([id number]) on 02/19/2022 10:44:39 AM Confirmed by MD Aric, Emre ([id number]) on 02/20/2022 9:04:38 AM MUSE SYSTEM 02/19/2022 1:17 AM EST 02/20/2022 9:04 AM EST Sarah Barnes MD ECG ORDERABLES Performing Organization Address City/[facility] Co de Phone Number MUSE SYSTEM * Heparin (unfractionated) Level (02/18/2022 7:08 PM EST) UF Heparin 0.06 IU/mL [facility] Comment: [...] MD HEMATOLOGY ORDERABLE S Performing Organization Address City/[facility]/ZIP Co de Phone Number [facility] [place] [address] * Heparin (unfractionated) Level (02/18/2022 11:26 AM EST) UF Heparin 0.16 IU/mL [facility] Comment: Heparin (anti-Xa) levels should be [...] MD HEMATOLOGY ORDERABLE S Performing Organization Address [facility] Co de Phone Number [facility] [place] [address] * ECHO COMPLETE W CONTRAST (02/18/2022 10:31 AM EST) EF 52 [facility] Anatomical Region Laterality Modality Cardiac Other 02/18/2022 9:15 AM EST Narrative 02/18/2022 11:39 AM EST ? Version 2 ? Echocardiogram Report Name: RAJAN FAULKNER ?Study Date: 02/18/2022 09:15 AMBP: 126/62 mmHg ? [facility] : 1950 ? Height: 173 cm ? Account: [id number] Age: 71 yrs ? Weight: 73 kg Gender: Male ?BSA: 1.9 m2 Ordering Physician: SARAH BARNES Performed By: CONNOR Rankin Reason For Study: Atrial Flutter Exam Location: [facility]. Interpretation Summary Patient is in 2:1 atrial flutter. Left ventricle is normal in size with mild hypertrophy and sigmoid septum. There is probably normal global systolic function; cannot accurately quantify due to signficant tachyarrhythmia. Right ventricle is normal in size and function. Normal left atrial size. No hemodynamically significant valve disease. IVC is non-dilated and non-plethoric. Procedure Complete-68904. Image enhancement Optison was used for left [...] Date: 209:15 AMBP: 126/62 mmHg Patient Location: [address] : 1950 Height: 173 cm Account: [id number] Age: 71 yrs Weight: 73 kg Gender: Male BSA: 1.9 m2 Ordering Physician: SARAH BARNES Performed By: CONNOR Rankin Reason For Study: Atrial Flutter Exam Location: [facility]. Interpretation Summary Patient is in 2:1 atrial flutter. Left ventricle is normal in size with mild hypertrophy and sigmoid septum.There is probably normal global systolic function; cannot accurately quantifydue to signficant tachyarrhythmia. Right ventricle is normal in size and function. Normal left atrial size. No hemodynamically significant valve disease. IVC is non-dilated and non-plethoric. Procedure Complete-[id number]. Image enhancement Optison was used for left [...] (Bezet) 549 ms MUSE SYSTEM Calculated P Orrick 89 degrees MUSE SYSTEM Calculated R Orrick 73 degrees MUSE SYSTEM Calculated T Orrick -131 degrees MUSE SYSTEM INTERPRETATION Atrial flutter with 2:1 A-V conduction Minimal voltage criteria for LVH, may be normal variant Abnormal ECG When compared with ECG of 17-FEB-2022 13:18, (unconfirmed) No significant change was found Confirmed by MD Radha, Ramon ([id number]) on 02/18/2022 1:36:02 PM MUSE SYSTEM 02/18/2022 [...] who have questions please contact the health client care coordinator that requested your imaging first. ? Electronically signed by: Sheeba Woods MD, [facility] ([phone]), at 02/18/2022 6:41 AM Narrative 02/18/2022 6:41 [...] patients who have questions please contactthe health client care coordinator that requested your imaging first. Ramon Garcia MD IMG DX ORDERABLES * (ABNORMAL) Differential, Automated (02/18/2022 4:13 AM EST) Neutrophil % 69.7 % [facility] Neutrophil Absolute 6.60(H) 1.70 - 6.10 x10(3)/mc L [facility] Lymph % 18.0 % [facility] Lymphocytes Abs 1.7 0.9 - 3.2 x10(3)/mc L [facility] Monocyte % 11.2 % [facility] Monocyte Abs 1.1(H) 0.3 - 0.9 x10(3)/mc L [facility] Eos % 0.3 % [facility] Eosinophils Abs 0.0 0.0 - 0.4 x10(3)/mc L [facility] Basophil % 0.5 % [facility] Baso Absolute 0.0 0.0 - 0.1 x10(3)/mc L [facility] Immature Gran % 0.30 % [facility] Comment: Immature granulocytes(IG's)percentage and absolute count will include metamyelocytes, myelocytes, and promyelocytes. Blood smears from CBCs yielding IG's will be scanned manually for concordance. If this scan disagrees with the automated IG or if promyelocytes are noted, a manual differential will be performed. Immature Gran Absolute 0.03 0.00 - 0.04 x10(3)/mc L [facility] Blood 02/18/2022 4:13 AM EST 02/18/2022 4:29 AM EST Narrative Resulting Agency Comment Spec In Lab Sarah Barnes MD HEMATOLOGY ORDERABLE S [facility] [place] [address] * (ABNORMAL) Hemogram (02/18/2022 4:13 AM EST) White Blood Cell 9.5 4.0 - 9.5 x10(3)/mc L [facility] Red Blood Cell 4.18(L) 4.58 - 5.54 x10(6)/mc L [facility] Hemoglobin 11.7(L) 13.7 - 16.5 g/dL [facility] Hematocrit 35.8(L) 40.5 - 48.5 % [facility] Mean Cell Volume 85.6 82.9 - 93.1 fL [facility] Mean Cell Hemoglobin 28.0 27.5 - 32.1 pg [facility] Mean Cell Hemoglobin Concentration 32.7 32.0 - 35.7 g/dL [facility] Platelet 280 145 - 357 x10(3)/mc L [facility] RDW Standard Deviation 43.3 36.0 - 45.0 fL [facility] RDW coefficient of variation 14.0(H) 11.4 - 13.8 % [facility] Mean Platelet Volume 9.4 7.6 - 12.9 fL [facility] NRBC% auto 0.0 % [facility] NRBC Absolute 0.000 0.000 - 0.000 x10(3)/ L [facility] Blood 02/18/2022 4:13 AM EST 02/18/2022 4:29 AM EST Narrative Resulting Agency Comment Spec In Lab Sarah Barnes MD HEMATOLOGY ORDERABLE S Performing Organization Address City/State/[facility] Co de Phone Number [facility] [place] [address] * Magnesium (02/18/2022 4:13 AM EST) Magnesium 0.77 0.69 - 1.07 mmol/L [facility] Blood 02/18/2022 4:13 AM EST 02/18/2022 4:29 AM EST Narrative Resulting Agency Comment Spec In Lab Sarah Barnes MD CHEMISTRY ORDERABLES [facility] [place] [address] * (ABNORMAL) BMP w/fasting Glucose (02/18/2022 4:13 AM EST) Glucose Fasting 83 65 - 99 mg/dL [facility] Comment: ?Fasting* Glucose Interpretive [...] of Diabetes Mellitus, Position Statement from the [place] [employer]. ??Diabetes Care, Volume 33, Supplement 1, Mar 2009 Blood Urea Nitrogen 15 10 - 20 mg/dL [facility] Creatinine 0.96 0.80 - 1.50 mg/dL [facility] Sodium 135 135 - 145 mmol/L [facility] Potassium 4.2 3.5 - 5.0 mmol/L [facility] Comment: Please note: ??Patients with WBC >100,000 may have falsely elevated Potassium levels. ??For accurate Potassium quantification in these patients send serum separator tube (gold top) for subsequent determinations. ??Contact the Clinical Chemistry Laboratory if there are any questions. Chloride 103 98 - 107 mmol/L [facility] Carbon Dioxide 20(L) 22 - 31 mmol/L [facility] Anion Gap 12 5 - 15 mmol/L [facility] Calcium 9.3 8.5 - 10.5 mg/dL [facility] Est Glomerular Filtration Rate 84 >=60 mL/min/1. 73 m?? [facility] Comment: This patient's estimated [...] MD CHEMISTRY ORDERABLES Performing Organization Address [facility]/ZIP Co de Phone Number [facility] [place] [address] * Heparin (unfractionated) Level (02/18/2022 4:13 AM EST) UF Heparin 0.12 IU/mL [facility] Comment: [...] MD HEMATOLOGY ORDERABLE S Performing Organization Address [facility] Co de Phone Number [facility] [place] [address] * [place] Cardiac (POCUS) (02/17/2022 4:51 PM [...] was done:: Not applicable Results:: CPT Code 58456:Limited Basic Cardiac (63503) Electronically Signed by the following Performing: ?on [...] was done:: Not applicable Results:: CPT Code 52982:Limited Basic Cardiac (59980) Electronically Signed by the following Performing: on [...] who have questions please contact the health client care coordinator that requested your imaging first. ? Electronically signed by: Matias Mata MD, [facility] ([phone]), at 02/17/2022 2:16 PM Narrative 02/17/2022 2:16 [...] patients who have questions please contactthe health client care coordinator that requested your imaging first. Sommer Pryor MD IMG DX ORDERABLES * TSH (02/17/2022 1:50 PM EST) Pathologist [facility] Thyroid Stimulating Hormone 1.36 0.27 - 4.20 mcIU/mL [facility] Comment: Reference Interval (mcIU/mL): Females: ??First Trimester: 0.23-3.88 ??Second Trimester: 0.22-3.90 ??Third Trimester: 0.44-4.66 Blood Venous Draw / Unknown 02/17/2022 1:50 PM EST 02/17/2022 1:59 PM EST Narrative Resulting Agency Comment Spec In Lab Sarah Barnes MD CHEMISTRY ORDERABLES [facility] [place] [address] * (ABNORMAL) pro-Brain Natriuretic Peptide (02/17/2022 1:50 PM EST) NT-proBNP 3,033(H) <=124 pg/mL [facility] Blood Venous Draw / Unknown 02/17/2022 1:50 PM EST 02/17/2022 1:59 PM EST Narrative Resulting Agency Comment Spec In Lab Sarah Barnes MD [place] [address] * (ABNORMAL) Differential, Automated (02/17/2022 1:50 PM EST) Neutrophil % 74.6 % [facility] Neutrophil Absolute 7.60(H) 1.70 - 6.10 x10(3)/mc L [facility] Lymph % 13.6 % [facility] Lymphocytes Abs 1.4 0.9 - 3.2 x10(3)/mc L [facility] Monocyte % 10.8 % [facility] Monocyte Abs 1.1(H) 0.3 - 0.9 x10(3)/mc L [facility] Eos % 0.3 % [facility] Eosinophils Abs 0.0 0.0 - 0.4 x10(3)/mc L [facility] Basophil % 0.3 % [facility] Baso Absolute 0.0 0.0 - 0.1 x10(3)/mc L [facility] Immature Gran % 0.40 % [facility] Comment: Immature granulocytes(IG's)percentage and absolute count will include metamyelocytes, myelocytes, and promyelocytes. Blood smears from CBCs yielding IG's will be scanned manually for concordance. If this scan disagrees with the automated IG or if promyelocytes are noted, a manual differential will be performed. Immature Gran Absolute 0.04 0.00 - 0.04 x10(3)/mc L [facility] Blood 02/17/2022 1:50 PM EST 02/17/2022 1:58 PM EST Narrative Resulting Agency Comment Spec In Lab Michelle Contreras MD HEMATOLOGY ORDERABLE S Performing Organization Address City/[facility]/[place] [address] * (ABNORMAL) Hemogram (02/17/2022 1:50 PM EST) White Blood Cell 10.2(H) 4.0 - 9.5 x10(3)/mc L [facility] Red Blood Cell 3.99(L) 4.58 - 5.54 x10(6)/mc L [facility] Hemoglobin 11.0(L) 13.7 - 16.5 g/dL [facility] Hematocrit 33.6(L) 40.5 - 48.5 % [facility] Mean Cell Volume 84.2 82.9 - 93.1 fL [facility] Mean Cell Hemoglobin 27.6 27.5 - 32.1 pg [facility] Mean Cell Hemoglobin Concentration 32.7 32.0 - 35.7 g/dL [facility] Platelet 314 145 - 357 x10(3)/mc L [facility] RDW Standard Deviation 43.4 36.0 - 45.0 fL [facility] RDW coefficient of variation 14.0(H) 11.4 - 13.8 % [facility] Mean Platelet Volume 9.2 7.6 - 12.9 fL [facility] NRBC% auto 0.0 % [facility] NRBC Absolute 0.000 0.000 - 0.000 x10(3)/ L [facility] Blood 02/17/2022 1:50 PM EST 02/17/2022 1:58 PM EST Narrative Resulting Agency Comment Spec In Lab Michelle Contreras MD HEMATOLOGY ORDERABLE S [facility] [place] [address] * Magnesium (02/17/2022 1:50 PM EST) Magnesium 0.74 0.69 - 1.07 mmol/L [facility] Blood 02/17/2022 1:50 PM EST 02/17/2022 1:58 PM EST Narrative Resulting Agency Comment Spec In Lab Sommer Pryor MD CHEMISTRY ORDERABLE S [facility] [place] [address] * Phosphorus (02/17/2022 1:50 PM EST) Phosphorus 2.8 2.5 - 4.5 mg/dL [facility] Blood 02/17/2022 1:50 PM EST 02/17/2022 1:58 PM EST Narrative Resulting Agency Comment Spec In Lab Sommer Pryor MD CHEMISTRY ORDERABLE S [facility] [place] [address] * Comprehensive metabolic panel (non-fasting) (02/17/2022 1:50 PM EST) Glucose 95 65 - 199 mg/dL [facility] Comment:Diabetes: >=200 mg/d L plus symptoms Blood Urea Nitrogen 16 10 - 20 mg/dL [facility] Creatinine 1.04 0.80 - 1.50 mg/dL [facility] Sodium 138 135 - 145 mmol/L [facility] Potassium 4.2 3.5 - 5.0 mmol/L [facility] Comment: Please note: ??Patients with WBC >100,000 may have falsely elevated Potassium levels. ??For accurate Potassium quantification in these patients send serum separator tube (gold top) for subsequent determinations. ??Contact the Clinical Chemistry Laboratory if there are any questions. Chloride 104 98 - 107 mmol/L [facility] Carbon Dioxide 23 22 - 31 mmol/L [facility] Anion Gap 11 5 - 15 mmol/L [facility] Calcium 9.6 8.5 - 10.5 mg/dL [facility] Protein, Total 6.8 6.1 - 8.0 g/dL [facility] Albumin 3.5 3.2 - 5.2 g/dL [facility] Aspartate Aminotransferase 18 0 - 39 unit/L [facility] Alanine Aminotransferase 12 0 - 55 unit/L [facility] Alkaline Phosphatase 67 40 - 130 unit/L [facility] Bilirubin, Total 0.3 0.2 - 1.3 mg/dL [facility] Est Glomerular Filtration Rate 76 >=60 mL/min/1. 73 m?? [facility] Comment: This patient's estimated [...] Lab Sommer Pryor MD CHEMISTRY ORDERABLE S [facility] [place] [address] * EKG 12 Lead (02/17/2022 1:18 PM EST) Ventricular rate 142 BPM MUSE SYSTEM Atrial Rate 284 BPM MUSE SYSTEM QRS Duration 96 ms MUSE SYSTEM Q-T Interval 324 ms MUSE SYSTEM QTC Calculated (Bezet) 498 ms MUSE SYSTEM Calculated P Orrick -101 degrees MUSE SYSTEM Calculated R Orrick 75 degrees MUSE SYSTEM Calculated T Orrick -88 degrees MUSE SYSTEM INTERPRETATION Atrial flutter with 2:1 A-V conduction Minimal voltage criteria for LVH, may be normal variant ( [place] product ) Abnormal ECG When compared with ECG of 13-FEB-2021 15:15, Atrial flutter has replaced Sinus rhythm Vent. rate has increased BY ??[address] now depressed in Inferior leads T wave inversion now evident in Inferior leads Nonspecific T wave abnormality now evident in Lateral leads Confirmed by MD Glenda, Rodger ([id number]) on 02/18/2022 4:23:20 PM MUSE SYSTEM 02/17/2022 [...] Mk Stanford RN) 0914 (Given - Provider: kM Stanford RN) magnesium sulfate 2 g in [...] Routine documented in this encounter Care Teams Real Estate Services Administrator Relationship Specialty Start Date End Date Tami Olivia [address] [place] [address] PCP - General Family Medicine 12/30/20 documented as of this encounter
--- OUTSIDE RECORDS SUMMARY | 2023-12-31 22:48 | XMS_ITS | Encounter Summary ---
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 Procedures CT Chest w Contrast Gilmer Gutiérrez MD [facility] [place] [address] [facility] [place] [address] Referral ID Status Reason Start Date Expiration Date V isits Requested Visits Authorized [id number] Closed Specialty Service Requested 04/17/2021 10/15/2022 1 1 Reason for Visit * Diagnostic Test (Routine) - Closed Specialty Diagnoses / Procedures Referred By Bert gautam Referred To Contact Radiology Diagnoses 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 Procedures CT Chest w Contrast Gilmer Gutiérrez MD [facility] [place] [address] [facility] [place] [address] Referral ID Status Reason Start Date Expiration Date V isits Requested Visits Authorized [id number] Closed Specialty Service Requested 04/17/2021 10/15/2022 1 1 Encounter Details Date Type Department Care Team (Latest Contact Info) Description 10/30/2021 1:06 PM EDT - 10/30/2021 11:59 PM EDT Hospital Encounter CT Scan at [facility] [place] [phone] Gilmer Gutiérrez MD [facility] [place] [address] Squamous cell carcinoma of left lung; Status [...] AM EST Office Visit Cardiology at [address] [phone] Chrissy Zepeda APRN [facility] [place] [address] Scheduled Procedures Name Priority Associated Diagnoses Date/Ti [...] have questions please contact the health career technology teacher that requested your imaging first. ? Electronically signed by: Marcus Edwards MD, [facility] ([phone]), at 10/30/2021 4:47 PM Narrative 10/30/2021 4:47 [...] mLs documented in this encounter Care Teams Manager Analysis Relationship Specialty Start Date End Date Tami Olivia [address] [place] [address] PCP - General Family Medicine 12/30/20 documented as of this encounter
--- OUTSIDE RECORDS SUMMARY | 2023-12-31 22:48 | XMS_ITS | Encounter Summary ---
Author Organization [facility] Address [facility] [place] [address] Care Team Providers Care County Demonstrator Name Role Phone Tami Olivia Primary Care Provider [phone] Reason for Visit * Reason Onset Date Comments Other 02/15/2022 Encounter Details Date Type Department Care Team (Late st Contact Info) Description 02/15/2022 Telephone Thoracic Surgery at [facility] [place] [phone] Megan Reza, RN Other Social History Tobacco [...] AM EST Office Visit Cardiology at [address] [phone] Chrissy Zepeda APRN [facility] [place] [address] Scheduled Procedures Name Priority Associated Diagnoses Date/Ti me CARDIOVERSION-ELECTIVE (WRVU 2) atrial flutter ELECTROPHYSIOLOGY PROCEDURE Persistent atrial fibrillation CARDIOVERSION-ELECTIVE (WRVU 2) persistent atrial fibrillation TRANSESOPHAGEAL ECHOCARDIOGR AM (WRVU 2.3) persistent atrial fibrillation documented as of this encounter Visit Diagnoses Not on filedocumented in this encounter Care Teams County Demonstrator Relationship Specialty Start Date End Date Tami Olivia [address] [place] [address] PCP - General Family Medicine 12/30/20 documented as of this encounter
--- OUTSIDE RECORDS SUMMARY | 2023-12-31 22:48 | XMS_ITS | Encounter Summary ---
Author Organization [facility] Address [facility] [place] [address] Care Team Providers Care Human Service Worker Name Role Phone Tami Olivia Primary Care Provider [phone] Encounter Details Date Type Department Care Team (Late st Contact Info) Description 11/08/2021 Orders Only [place] [phone] Renu Donald PA [facility] [place] [address] Pleural effusion (Primary Dx) Social History Tobacco [...] AM EST Office Visit Cardiology at [address] [phone] Chrissy Zepeda APRN [facility] [place] [address] Scheduled Procedures Name Priority Associated Diagnoses Date/Ti me CARDIOVERSION-ELECTIVE (WRVU 2) atrial flutter ELECTROPHYSIOLOGY PROCEDURE Persistent atrial fibrillation CARDIOVERSION-ELECTIVE (WRVU 2) persistent atrial fibrillation TRANSESOPHAGEAL ECHOCARDIOGR AM (WRVU 2.3) persistent atrial fibrillation documented as of this encounter Visit Diagnoses Diagnosis Pleural effusion- Primary Unspecified pleural effusion documented in this encounter Care Teams Human Service Worker Relationship Specialty Start Date End Date Tami Olivia [address] [place] [address] PCP - General Family Medicine 12/30/20 documented as of this encounter
--- OUTSIDE RECORDS SUMMARY | 2023-12-31 22:48 | XMS_ITS | Encounter Summary ---
Author Organization [facility] Address [facility] [place] [address] Care Team Providers Care Orthophoto Tech/Draftsman Name Role Phone Tami Olivia Primary Care Provider [phone] Encounter Details Date Type Department Care Team (Late st Contact Info) Description 02/19/2022 11:59 PM EST Anesthesia [place] [phone] Verna Anton MD [facility] [place] [address] Anesthesia Record Procedure Summary Procedure Name Responsible [...] IR Thoracentesis Left 11/08/2021 ForRamírez caldera MD [facility] INTERVENTIONL RAD ??? PRO BRONCHOSCOPY, DIAGNOSTIC N/A 03/29/2021 BRONCHOSCOPY, DIAGNOSTIC (WRVU 2.78) performed by Gilmer Gutiérrez MD at [facility] MAIN OR ??? PRO BRONCHOSCOPY, DIAGNOSTIC N/A 02/08/2022 BRONCHOSCOPY, DIAGNOSTIC (WRVU 2.78) performed by Gilmer Gutiérrez MD at [facility] MAIN OR ? ? PRO INJECTION ANES AGENT &/ STEROID INTERCOSTAL NERVE SINGLE LEVEL Left 03/29/2021 NERVE BLOCK, INTERCOSTAL NERVE (WRVU 1.18) performed by Gilmer Gutiérrez MD at [facility] MAIN OR ??? PRO THORACOSCOPY SURG LOBECTOMY Left 03/29/2021 @THORACOSCOPY,SURGICAL,W\LOBECTOMY,TOTAL OR SEGMENTAL (WRVU 24.64) performed by Johana Gutiérrez MD at [facility] MAIN OR ??? PRO THORACOSCOPY WITH BIOPSY OF PLEURA Left 02/08/2022 THORACOSCOPY; WITH BIOPSY(IES) OF PLEURA (WRVU 4.58) performed by Gilmer Gutiérrez MD at [facility] OR ??? PRO THORACOSCOPY WITH MEDIASTINAL AND REGIONAL LYMPHADENECTOMY 03/29/2021 @THORACOSCOPY, SURG; W/MEDIASTINAL& REGIONAL LYMPHADENECTOMY (WRVU 4.12) performed by Gilmer Gutiérrez MD at [facility] MAIN OR ??? PRO THORACOSCOPY WITH WEDGE RESECTION AND ANATOMIC LUNG RESECTN Left 03/29/2021 @THORACOSCOPY, SURG; W/DX WEDGE RESC W/ANATOMIC LUNG RESC (WRVU 3) performed by Johana Gutiérrez MD at [facility] MAIN OR Social History Tobacco Use [...] DL with MAC 4. Plan: GA with kake airway with possible LMA, given history of [...] 10:40 AM EST Office Visit Cardiology at [address] [address] Chrissy Zepeda, MORTEZA [facility] [place] [address] Scheduled Procedures Name Priority Associated Diagnoses Date/Ti me CARDIOVERSION-ELECTIVE (WRVU 2) atrial flutter ELECTROPHYSIOLOGY PROCEDURE Persistent atrial fibrillation CARDIOVERSION-ELECTIVE (WRVU 2) persistent atrial fibrillation TRANSESOPHAGEAL ECHOCARDIOGR AM (WRVU 2.3) persistent atrial fibrillation documented as of this encounter Visit Diagnoses Not on filedocumented in this encounter Care Teams Orthophoto Tech/Draftsman Relationship Specialty Start Date End Date Tami Olivia [address] [place] [address] PCP - General Family Medicine 12/30/20 documented as of this encounter
--- OUTSIDE RECORDS SUMMARY | 2023-12-31 22:48 | XMS_ITS | Encounter Summary ---
Author Organization [facility] [place] [address] Care Team Providers Care Food Service Driver Name Role Phone Tami Olivia Primary Care Provider [phone] Encounter Details Date Type Department Care Team (Late st Contact Info) Description 02/12/2022 Telephone [place] [address] Megan Reza, RN Social History [...] AM EST Office Visit Cardiology at [address] [address] Chrissy Zepeda APRN [facility] [place] [address] Scheduled Procedures Name Priority Associated Diagnoses Date/Ti me CARDIOVERSION-ELECTIVE (WRVU 2) atrial flutter ELECTROPHYSIOLOGY PROCEDURE Persistent atrial fibrillation CARDIOVERSION-ELECTIVE (WRVU 2) persistent atrial fibrillation TRANSESOPHAGEAL ECHOCARDIOGR AM (WRVU 2.3) persistent atrial fibrillation documented as of this encounter Visit Diagnoses Not on filedocumented in this encounter Care Teams Food Service Driver Relationship Specialty Start Date End Date Tami Olivia [address] [place] [address] PCP - General Family Medicine 12/30/20 documented as of this encounter
--- OUTSIDE RECORDS SUMMARY | 2023-12-31 22:48 | XMS_ITS | Encounter Summary ---
Author Organization [facility] [place] [address] Care Team Providers Care Billing And Insurance Coordinator Name Role Phone Tami Olivia Primary Care Provider [phone] Encounter Details Date Type Department Care Team [...] 10:40 AM EST Office Visit Cardiology at [address] [address] Chrissy Zepeda APRN [facility] [place] [address] Scheduled Procedures Name Priority Associated Diagnoses Date/Ti me CARDIOVERSION-ELECTIVE (WRVU 2) atrial flutter ELECTROPHYSIOLOGY PROCEDURE Persistent atrial fibrillation CARDIOVERSION-ELECTIVE (WRVU 2) persistent atrial fibrillation TRANSESOPHAGEAL ECHOCARDIOGR AM (WRVU 2.3) persistent atrial fibrillation documented as of this encounter Visit Diagnoses Not on filedocumented in this encounter Care Teams Billing And Insurance Coordinator Relationship Specialty Start Date End Date Tami Olivia [address] [place] [address] PCP - General Family Medicine 12/30/20 documented as of this encounter
--- OUTSIDE RECORDS SUMMARY | 2023-12-31 22:48 | XMS_ITS | Encounter Summary ---
Author Organization [facility] Address [facility] [place] [address] Care Team Providers Care Technicians And Trades Workers Name Role Phone Tami Olivia Primary Care Provider [phone] Encounter Details Date Type Department Care Team (Late st Contact Info) Description 01/29/2022 2:00 PM EST Office Visit Thoracic Surgery at [facility] [place], [facility] [address] Gilmer Gutiérrez MD [facility] [place] [address] Pleural effusion; Squamous cell carcinoma of left [...] and drinking. Your procedure will occur in professor of genetics area 4W. YOU WILL NEED TO STOP [...] at home before you are discharged : [id number] mg alternate with ibuprofen 200 mg (2-3 [...] encounter Progress Notes * Loreta Terrell V, NIGHT COURT MAGISTRATE - 01/29/2022 2:00 PM EST Thoracic Surgery Attending Outpatient Follow Up Note Gilmer Gutiérrez MD [place], [place] [address] FAX: Chief complaint: Follow up LULobectomy, recurrent [...] this thoracentesis. He was seen by his hide trimmer in December who repeated a CT Chest [...] concerns Loreta Terrell APRN 01/29/22 Thoracic Surgery [facility] * Gilmer Gutiérrez MD - 01/29/2022 2:00 [...] AM EST Office Visit Cardiology at [address] [address] Chrissy Zepeda APRN [facility] [place] [address] Scheduled Procedures Name Priority Associated Diagnoses Date/Ti [...] LABORATORY Creatinine 1.20 0.80 - 1.50 mg/dL [facility] Sodium 135 135 - [...] Lab Gilmer Gutiérrez MD CHEMISTRY ORDERA [facility] [address] documented in this encounter Visit Diagnoses Diagnosis Pleural effusion Unspecified pleural effusion Squamous cell carcinoma of left lung documented in this encounter Care Teams Technicians And Trades Workers Relationship Specialty Start Date End Date Tami Olivia [address] [place] [address] PCP - General Family Medicine 12/30/20 documented as of this encounter
--- OUTSIDE RECORDS SUMMARY | 2023-12-31 22:48 | XMS_ITS | Encounter Summary ---
Author Organization [facility] Address [facility] [place] [address] Care Team Providers Care Assistant Director Of Nursing Name Role Phone Tami Olivia Primary Care Provider [phone] Reason for Visit * Reason Onset Date Comments Other 02/13/2022 Encounter Details Date Type Department Care Team (Late st Contact Info) Description 02/13/2022 Telephone Thoracic Surgery at [facility] [place] [phone] Megan Reza, RN Other Social History Tobacco [...] IS more as directed yesterday and pulling [phone]. VNA returning on 02/15/22. Will check in and he will continue to check for his air leak. They knows to call with any questions or concerns. documented in this encounter Plan of Treatment Upcoming Encounters Date Type Department Care Team (Late st Contact Info) Description 01/20/2024 10:40 AM EST Office Visit Cardiology at [address] [address] Chrissy Zepeda APRN [facility] [place] [address] Scheduled Procedures Name Priority Associated Diagnoses Date/Ti me CARDIOVERSION-ELECTIVE (WRVU 2) atrial flutter ELECTROPHYSIOLOGY PROCEDURE Persistent atrial fibrillation CARDIOVERSION-ELECTIVE (WRVU 2) persistent atrial fibrillation TRANSESOPHAGEAL ECHOCARDIOGR AM (WRVU 2.3) persistent atrial fibrillation documented as of this encounter Visit Diagnoses Not on filedocumented in this encounter Care Teams Assistant Director Of Nursing Relationship Specialty Start Date End Date Tami Olivia [address] [place] [address] PCP - General Family Medicine 12/30/20 documented as of this encounter
--- OUTSIDE RECORDS SUMMARY | 2023-12-31 22:48 | XMS_ITS | Encounter Summary ---
Author Organization [facility] Address [facility] [address] [place] [id number] Care Team Providers Care Pot Holder Binder Name Role Phone Tami Olivia Primary Care Provider [phone] Reason for Visit * Auth/Cert (Routine) Specialty Diagnoses / Procedures Referred By Bert t Referred To Contact Diagnoses Pleural effusion, not elsewhere classified Malignant neoplasm of unspecified part of left bronchus or lung pleural effusion Procedures PRO THORACOSCOPY WITH BIOPSY OF PLEURA PRO BRONCHOSCOPY, DIAGNOSTIC THORACOSCOPY; WITH BIOPSY(IES) OF PLEURA (WRVU 4.58) BRONCHOSCOPY, DIAGNOSTIC (WRVU 2.78) Gilmer Gutiérrez MD [facility] DR THORACIC [place] [address] [facility] Referral ID Status Reason Start Date Expiration Date Visits Re quested Visits Authorized [id number] 1 1 Encounter Details Date Type Department Care Team (Late st Contact Info) Description 02/08/2022 12:01 PM EST Anesthesia [place] [phone] Keerthi Rice MD [facility] ANESTHESIOLOGY [place] [address] Tita Raza MD [facility] ANESTHESIOLOGY [place] [address] Anesthesia Record Procedure Summary Procedure Name Responsible [...] Single Lumen 02/08/22; 1132; brachial vein, right; [id number] catheter system; Anatomical Landmarks; 20 gauge; Kendall [...] by Judie Carrasco RN 02/19/22 1200 by Naoime Monteiro RN documented in this encounter Social [...] Procedure Summary Date: 02/08/22 Room / Location: [facility] OR [address] [place] [address] MAIN OR Anesthesia Start: 1201 Anesthesia Stop: 1401 Procedures: THORACOSCOPY; WITH BIOPSY(IES) OF PLEURA (WRVU 4.58) (Left: Chest) BRONCHOSCOPY, DIAGNOSTIC (WRVU 2.78) Diagnosis: Pleural effusion Squamous cell carcinoma of left lung (pleural effusion) Surgeons: Gilmer Gutiérrez MD Responsible Provider: Keerthi Rice MD Anesthesia Type: general ASA Status: 3 All Anesthesia Providers: Anesthesiologist: Keerthi Rice MD P 3 Armament/Ordnance Ima Technician: Tita Raza MD Vitals Value Taken Time BP 125/71 02/08/22 1400 Temp Pulse 57 02/08/22 1401 Resp 16 02/08/22 1401 SpO2 99 % 02/08/22 1401 Pain Level Vitals shown include unvalidated device data. Patient Location: PACU/[facility] Level of Consciousness: Awake and [...] IR Thoracentesis Left 11/08/2021 Ramírez Ramirez MD [facility] INTERVENTIONL RAD ??? PRO BRONCHOSCOPY, DIAGNOSTIC N/A 03/29/2021 BRONCHOSCOPY, DIAGNOSTIC (WRVU 2.78) performed by Gilmer Gutiérrez MD at [facility] MAIN OR ? ? PRO INJECTION ANES AGENT &/ STEROID INTERCOSTAL NERVE SINGLE LEVEL Left 03/29/2021 NERVE BLOCK, INTERCOSTAL NERVE (WRVU 1.18) performed by Gilmer Gutiérrez MD at [facility] MAIN OR ??? PRO THORACOSCOPY SURG LOBECTOMY Left 03/29/2021 @THORACOSCOPY,SURGICAL,W\LOBECTOMY,TOTAL OR SEGMENTAL (WRVU 24.64) performed by Johana Gutiérrez MD at [facility] MAIN OR ??? PRO THORACOSCOPY WITH MEDIASTINAL AND REGIONAL LYMPHADENECTOMY 03/29/2021 @THORACOSCOPY, SURG; W/MEDIASTINAL& REGIONAL LYMPHADENECTOMY (WRVU 4.12) performed by Gilmer Gutiérrez MD at [facility] MAIN OR ??? PRO THORACOSCOPY WITH WEDGE RESECTION AND ANATOMIC LUNG RESECTN Left 03/29/2021 @THORACOSCOPY, SURG; W/DX WEDGE RESC W/ANATOMIC LUNG RESC (WRVU 3) performed by Johana Gutiérrez MD at [facility] MAIN OR Social History Tobacco Use [...] and adequate venousaccess. Tita Raza MD 02/07/2022 labor custodian (Dwayne): chart reviewed, patient interviewed and examined [...] AM EST Office Visit Cardiology at [address] [phone] Chrissy Zepeda APRN [facility] [place] [address] Scheduled Procedures Name Priority Associated Diagnoses Date/Ti [...] mg documented in this encounter Care Teams Pot Holder Binder Relationship Specialty Start Date End Date Tami Olivia [address] [place] [address] PCP - General Family Medicine 12/30/20 documented as of this encounter
--- OUTSIDE RECORDS SUMMARY | 2023-12-31 22:48 | XMS_ITS | Encounter Summary ---
Author Organization [facility] Address 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 Pleural effusion Procedures IR Thoracentesis Left Gilmer Gutiérrez MD [facility] [place] [address] [place] [address] Referral ID Status Reason Start Date Expiration Date V isits Requested Visits Authorized [id number] Closed Specialty Service Requested 10/30/2021 05/02/2023 1 1 Reason for Visit * Reason Comments Follow-up Encounter Details Date Type Department Care Team (Late st Contact Info) Description 10/30/2021 2:30 PM EDT Office [place] [phone] Gilmer Gutiérrez MD [facility] [place] [address] Squamous cell carcinoma of left [...] Up Note MD Yosef Fischer. ASHLEY Butcher [place] [address] FAX: Reason for Visit: Follow up s/p [...] Kathleen Kemp MD 60 mL at 10/30/21 9952 Physical Exam: BP 157/75 (Patient Position: Sitting) [...] read pending per radiology. On our review, [id number] Left pleural effusion appreciated, no new nodules appreciated. Assessment: Rajan Marquez is a 70 y.o. 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 He is currently feeling well, however [id number] Left pleural effusion appreciated on CT today, [...] AM EST Office Visit Cardiology at [address] [place] [address] Chrissy Zepeda APRN [facility] [place] [address] Scheduled Procedures Name Priority Associated Diagnoses Date/Ti [...] Fr inner micropuncture dilator with coaxial mounted Hydrocapsuleeh catheter was advanced. A total of 200 [...] effusion documented in this encounter Care Teams Court Administrator Relationship Specialty Start Date End Date Tami Olivia [address] [place] [address] PCP - General Family Medicine 12/30/20 documented as of this encounter
--- OUTSIDE RECORDS SUMMARY | 2023-12-31 22:48 | XMS_ITS | Encounter Summary ---
Author Organization [facility] Address [facility] [place] [address] Care Team Providers Care Hearing Impaired Itinerant Teacher Name Role Phone SudhakarJacksonTami Primary Care Provider [phone] Encounter Details Date Type Department Care Team (Latest Contact Info) Description 04/17/2021 10:34 AM EST - 04/17/2021 11:59 PM [facility] Hospital Encounter XRay at [address] [address] S/P lobectomy of lung Discharge Disposition: Home [...] Take 81 mg by mouth daily. 10/30/2021 bupropion HCl (WELLBUTRIN ORAL) Take 150 mg [...] AM EST Office Visit Cardiology at [address] [address] Chrissy Zepeda, [facility] [place] [address] Scheduled Procedures Name Priority Associated Diagnoses Date/Ti [...] questions please contact the health director of home care hospice that requested your imaging first. ? Narrative [...] have questions please contactthe health director of home care hospice that requested your imaging first. Gilmer Gutiérrez MD IMG DX ORDERABLE S documented in this encounter Visit Diagnoses Diagnosis S/P lobectomy of lung Other postprocedural status documented in this encounter Care Teams Hearing Impaired Itinerant Teacher Relationship Specialty Start Date End Date Tami Olivia [address] [place] [address] PCP - General Family Medicine 12/30/20 documented as of this encounter
--- OUTSIDE RECORDS SUMMARY | 2023-12-31 22:48 | XMS_ITS | Encounter Summary ---
Author Organization [facility] [place] [address] Care Team Providers Care Sap Bi Architect Name Role Phone SudhakarJacksonTami Primary Care Provider [phone] Reason for Referral * Home Health Care (Routine) - Closed Specialty Diagnoses / Procedures Referred By Bert gautam Referred To Contact Diagnoses Mass of upper lobe of left lung Gilmer Foster MD [facility] [place] [address] Referral ID Status Reason Start Date Expiration Date V isits Requested Visits Authorized [id number] Closed Consult, Test & Treat 02/10/2022 08/09/2022 [...] BRONCHOSCOPY, DIAGNOSTIC (WRVU 2.78) Gilmer Foster MD [facility] [place] [address] [facility] Referral ID Status Reason Start Date Expiration Date Visits Re quested Visits Authorized [id number] 1 1 Encounter Details Date Type Department Care Team (Latest Contact Info) Description 02/08/2022 10:50 AM EST - 02/10/2022 1:20 AM EST Hospital Encounter [place] [address] Gilmer Foster MD [facility] [place] [address] Pleural effusion; Squamous cell carcinoma of left [...] Hospital Course: Rajan Marquez was admitted to [facility] on 02/08/2022 via the [place]. He [...] questions please contact the health home care scheduler that requested your imaging first. Electronically signed by: Jose Araon MD, [facility] ([phone]), at 02/08/2022 2:57 PM XR Chest PA & Lateral (Generic) (Exam End: 02/10/2022 5:23 AM) Impression Enlarging left hydropneumothorax. Thank you for letting us participate in the care of this patient. If you are a health care provider and have any questions regarding this report, please contact the number below. For patients who have questions please contact the health home care scheduler that requested your imaging first. Electronically signed by: Maryann Magallanes MD, [facility] ([phone]), at 02/10/2022 8:05 AM Pending Studies and [...] a nurse in the Thoracic Clinic at [phone]. After hours or on weekends or holidays please call: [phone] and ask to speak to the Thoracic [...] please call the thoracic surgery clinic at [phone]. Driving: No driving for 1 week or [...] the Thoracic Clinic or the Thoracic Surgeon admissions supervisor after hours. Please take over the [...] our office if you have any questions. [phone] Future Appointments Date Time Provider Department Center 02/10/2022 5:00 AM [facility] DX ROOM 9 MH Xray [facility] Rad General Instructions Keep the Express Mini in an upright position and make sure the tubing stays firmly attached to the end of your chest tube. If it becomes disconnected you will need to reconnect it immediately and tape it securely. If you cannot get it reconnected you will need to go to the Emergency Room at [facility] immediately. Be sure to not let [...] and contact Dr. Gilmer Cardozo office at [phone] if the amount increases by 200 cc [...] contact the Thoracic Surgery office promptly at [phone]. Opioid PDMP 02/13/2021 [place] PDMP Query Date [...] Expires XR Chest PA & Lateral (Generic) [[id number] Custom] 02/23/2022 08/25/2022 Process Instructions: Scheduling Instructions: Questions: Reason for exam and clinical history: s/p left VATS pleural biopsy Clinical information / bryan questions for radiologist: ?interval change Where will study be performed?: [facility] Radiology Portable exam?: Stat read required?: Date of injury if applicable: Requested Time: XR Chest PA & Lateral (Generic) [[id number] Custom] 02/24/2022 (Approximate) 08/26/2022 Process Instructions: Scheduling Instructions: Questions: Reason for exam and clinical history: s/p left vats pleural biopsy Clinical information / bryan questions for radiologist: eval for ptx and or effusion Where will study be performed?: [facility] Radiology Portable exam?: Stat read required?: Date of injury if applicable: Requested Time: Referral to Home Health [REF34 Custom] As directed Process Instructions: If no progress note charted, please enter Clinical details in comments. Scheduling Instructions: Comments: Please evaluate Rajan Marquez for admission to Home Health. [address] [facility] [address] Phone Number: mobile [phone] Date of : 1950 Inpatient DOCUMENTATION FOR VNA SERVICES (INCLUDING THOSE PATIENTS WITH MEDICARE COVERAGE REQUIRING HOME VNA SERVICES AND/OR HOSPICE SERVICES) PATIENT'S LOCATION: Rajan Bravo [facility] [address] [place] [phone] Precision Instrument Maker And Repairer's Name: self/family In discussion with the attending physician, it is certified that this patient is under their care and that they, or a Nurse Practitioner,Clinical Nurse specialist or Physician Diamond Sander who is working directly with them, had [...] Emergency Room or the Emergency Room at [facility] immediately. Check the Atrium Express Mini [...] your scheduled appointment. HOME HEALTH CARE AGENCY: [facility] [address] [place] [address] PHONE: [phone] FAX: [phone] Start of care: within 24 to 48 hours of discharge Please note that any additional orders needs or changes will need to be obtained from this patient's PCP: Tami Olivia [address] / [place] [address] All VNA agencies which cover the area of patient's residence have been reviewed, either verbally crow writing, and patient/family have chosen the home health care agency noted Questions: Disciplines Requested: Nursing Provider Contact Information: Primary Care Provider: Tami Olivia [phone] Discharge References/Attachments: Discharge References/Attachments None For questions regarding this document or issues relating to this hospitalization on the Thoracic Surgery Service, please contact Dr. Foster's office at . Signed: STEVE Black 02/10/2022 Thoracic Surgery [facility] CC: PCP: Tami Olivia Referring: Tami Olivia [address] [place] [address] documented in this encounter Discharge Instructions * [...] to go to the Emergency Room at [facility] immediately. Be sure to not let [...] contact the Thoracic Surgery office promptly at [phone]. * Patient Instructions* Camilo Stevenson PA - 02/09/2022 11:12 AM EST Call if you have a fever of greater than 101 degrees, shaking chills, develop redness or drainage from your incision site(s), or if you have questions. During normal business hours, Saturday- Saturday 8:00 a.m.-5:00 p.m., please call to speak to a nurse in the Thoracic Clinic at [phone]. After hours or on weekends or holidays please call: [phone] and ask to speak to the Thoracic [...] please call the thoracic surgery clinic at [phone]. Driving: No driving for 1 week or [...] the Thoracic Clinic or the Thoracic Surgeon admissions supervisor after hours. Please take over the [...] our office if you have any questions. [phone] Future Appointments Date Time Provider Department Center 02/10/2022 5:00 AM [facility] DX ROOM 9 Xray [facility] Rad documented in this encounter Medications at [...] Paredes RN - 02/10/2022 1:16 PM EST [facility] Short Stay Unit Discharge Note All relevant [...] Horton MD - 02/09/2022 8:53 AM EST [facility] Department of Thoracic Surgery Inpatient Progress Note Patient Name: Rajan Marquez Patient : 1950 Patient [facility] Attending Surgeon: GILMER FOSTER ID: Rajan [...] Admission (Current) from 02/08/2022 in PACU at [facility] OfficeVisit from 01/29/2022 in Thoracic Surgery at [facility] Weight 75.8 kg (167 lb) 1 02/08/2022 [...] Result Value Ref Range Surgical Pathology Report [id number] Location: OR; OR22; A The signing pathologist has (i) examined the relevant preparation(s) for the specimen(s) and (ii) rendered or confirmed the diagnosis(es). . Frozen Section FROZEN SECTION DIAGNOSIS AFS - Left pleural biopsy, for frozen section (2 blocks): Atypical cells, cannot exclude malignancy, defer to permanent. 02/08/22 13:26 Electronically signed by: Malia Lacy MD Verified: 02/08/2022 13:50 Pathologist Performed at: -[facility] Dept. of Pathology, [place] [address] Dental Claims Processor: Maria Ines Marrufo MD, FCAP, CLIA Certificate: [id number] This intraoperative consultation should be interpreted as [...] questions please contact the health home care scheduler that requested your imaging first. Electronically signed by: Jose Aaron MD, [facility] ([phone]), at 02/08/2022 2:57 PM Micro: Procedure Component Value Units Date/Time Fungus culture Pleural Fluid [[id number]] Collected: 02/08/22 125 Lab Status: Preliminary result Specimen: Pleural Fluid Updated: 02/09/22 0817 Fungus Culture No Fungus isolated to date Body Fluid Culture, Aerobic & Anaerobic Pleural Fluid [[id number]] Collected: 02/08/221253 Lab Status: Preliminary result Specimen: Pleural Fluid Updated: 02/09/22 0743 Body Fluid Culture, Aerobic [[id number]] Collected: 02/08/221253 Lab Status: Preliminary result Specimen: [...] Baez MD 02/09/2022 Thoracic Surgery Service Pager [phone] Debbie Lou RN - 02/09/2022 8:44 AM [...] dressing is CDI. 0700: Report given to HAMMERERDebbie VASQUEZ. Care assumed. * Juanita Sotomayor RN [...] Thoracentesis Left 11/08/2021 Ashley, Ramírez Ziegler MD [facility] INTERVENTIONL RAD ??? PRO BRONCHOSCOPY, DIAGNOSTIC N/A 03/29/2021 BRONCHOSCOPY, DIAGNOSTIC (WRVU 2.78) performed by Gilmer Foster MD at [facility] OR ? ? PRO INJECTION ANES AGENT &/ STEROID INTERCOSTAL NERVE SINGLE LEVEL Left 03/29/2021 NERVE BLOCK, INTERCOSTAL NERVE (WRVU 1.18) performed by Gilmer Foster MD at [facility] OR ??? PRO THORACOSCOPY SURG LOBECTOMY Left 03/29/2021 @THORACOSCOPY,SURGICAL,W\LOBECTOMY,TOTAL OR SEGMENTAL (WRVU 24.64) performed by Johana Foster MD at [facility] OR ??? PRO THORACOSCOPY WITH MEDIASTINAL AND REGIONAL LYMPHADENECTOMY 03/29/2021 @THORACOSCOPY, SURG; W/MEDIASTINAL& REGIONAL LYMPHADENECTOMY (WRVU 4.12) performed by Gilmer Foster MD at [facility] OR ??? PRO THORACOSCOPY WITH WEDGE RESECTION AND ANATOMIC LUNG RESECTN Left 03/29/2021 @THORACOSCOPY, SURG; W/DX WEDGE RESC W/ANATOMIC LUNG RESC (WRVU 3) performed by Johana Foster MD at [facility] OR MEDS: No current facility-administered medications [...] Nieto MD 02/08/2022 Thoracic Surgery Service Pager [phone] documented in this encounter Miscellaneous Notes * [...] information for follow-up Home Health & H[facility]ice, [place] [address] Transportation: family or friend will provide Wheelchair [...] Natanael Sims RN, BSN CM Case Management [phone] * Care Management - Melania Salinas RN - 02/09/2022 2:26 PM EST RN/CM has reviewed with provider team. Admit: 02/08/2022 with anticipated discharge: 02/10/2022. Pt remains OBS status at this time. Pending UM review later today. Christie Salinas RN (Jonas) RN/CM - Cellphone: [phone] Pager: [phone] Covering Service RN/CM * Initial Assessments - [...] surrogate would be surrogate decision maker per [place] surrogate decision making law. (Only good for 180 days) Any patient receiving care in [place] must abide by [place] law. The hierarchy for surrogate decision making [...] (i) The agent with financial power of regulatory attorney or a conservator appointed in accordance [...] Current DME: none Home Address confirmed as: [address] [place] [address] Social & Family Supports: All names listed [...] points: Addiction likely Health/Prescription Coverage: Primary Insurance: [facility] MANAGED MEDICARE Payor: [employer] MANAGED MEDICARE / Plan: [facility] COMPLETE / Product Type: *No Producttype* / Secondary Insurance: N/A ; Prescription Coverage: Yes Preferred Pharmacy: [facility] [place], [place] - [address] [place] [phone] [place] Status: Patient is a : No Primary Care Provider listed: Tami Olivia [phone] Patient/Caregiver Goals of Treatment: Return home with [...] are placed. Patient requests referral to : [facility] [address] [place] [address] PHONE: [phone] FAX: [phone] Expected date of discharge: 02/09/2022 vs 02/10/2022 Referral routed to the Lower School Music Teacher for matching with agency/vendor and to provide [...] planningCecilia Salinas RN (Jonas) RN/CM - Cellphone: [phone] Pager: [phone] Covering Service RN/CM * Op Note - Gilmer Foster MD - 02/08/2022 12:40 PM EST [facility] Operative Note Patient Name: Rajan Marquez : [id number] MR#: [id number] Case Date: 02/08/2022 Surgeon: Surgeon(s) and Role: [...] tissue samples (in container) 1 Drains: 28 Sami chest tube, left Surgical Closure: Primary Closure [...] copiously with warm normal saline. A 28 Sami chest tube was placed through the anterior [...] 10:40 AM EST Office Visit Cardiology at [address] [place] [address] Chrissy Zepeda APRN [facility] [address] Scheduled Procedures Name Priority Associated Diagnoses Date/Ti [...] TO PATHOLOGY Routine 02/08/2022 1:15 PM EST NON-RESEARCH AIDE FINAL REPORT Routine 02/08/2022 1:10 PM EST [...] Routine 02/08/2022 12:54 PM EST Bronchoscopy, Diagnostic ([id number]) 02/08/2022 12:00 PM EST Pleural effusion Squamous [...] questions please contact the health home care scheduler that requested your imaging first. ? Electronically signed by: Marcus Edwards MD, [facility] ([phone]), at 03/06/2022 2:27 PM Narrative 03/06/2022 2:27 [...] have questions please contactthe health home care scheduler that requested your imaging first. Electronically signed by: Marcus Edwards MD, [facility]([phone]), at 03/06/2022 2:27 PM Gilmer Foster MD [...] questions please contact the health home care scheduler that requested your imaging first. ? Electronically signed by: Maryann Magallanes MD, [facility] ([phone]), at 02/10/2022 8:05 AM Narrative 02/10/2022 8:05 [...] have questions please contactthe health home care scheduler that requested your imaging first. Electronically signed by: Maryann Magallanes MD, [facility]([phone]), at 02/10/2022 8:05 AM Gilmer Foster MD [...] questions please contact the health home care scheduler that requested your imaging first. ? Electronically signed by: Jose Aaron MD, [facility] ([phone]), at 02/08/2022 2:57 PM Narrative 02/08/2022 2:57 [...] have questions please contactthe health home care scheduler that requested your imaging first. Electronically signed by: Jose Aaron MD, [facility]([phone]), at 02/08/2022 2:57 PM Gilmer Foster MD IMG DX ORDERABLE S * Specimen to Pathology (02/08/2022 1:15 PM EST) AP Specimen 02/08/2022 1:15 PM EST 02/08/2022 1:15 PM EST Narrative [facility] - 02/08/2022 1:15 PM EST Specimen requisition ordered. ??Separate Pathology report to follow Gilmer Foster MD PATHOLOGY/CYTOLO GY ORDERABLES [facility] [place] [address] * Non-Instant Potato Processing Supervisor Final Report (02/08/2022 1:10 PM EST) Diagnosis Discussion [id number] ? Location: [facility]; [facility]; The signing pathologist has (i) examined the relevant preparation(s) for the specimen(s) and (ii) rendered or confirmed the diagnosis(es). . ? Non-Instant Potato Processing Supervisor Final DIAGNOSIS See Discussion Electronically signed by: ?Asher FLORES, Rory Swann Verified: ??02/10/2022 17:36 ??Cytopathologis t Performed at: ??-[facility] Dept. of Pathology, [place] [address] Dental Claims Processor: Maria Ines Marrufo MD, AP, ??CLIA Certificate: [id number] DISCUSSION Pleural fluid: left (thoracentesis) - Predominantly [...] MD PATHOLOGY/CYTOLO GY ORDERABLES Performing Organization Address [facility] Co de Phone Number [facility] [place] [address] * Cytopathology Non-Gynecological (02/08/2022 1:10 PM EST) AP Specimen 02/08/2022 1:10 PM EST 02/08/2022 1:10 PM EST Narrative [facility] - 02/08/2022 1:10 PM EST Specimen requisition ordered. ??Separate Pathology report to follow Gilmer Foster MD PATHOLOGY/CYTOLO GY ORDERABLES Performing Organization Address [facility]/ZIP Co de Phone Number [facility] [place] [address] * Surgical Pathology Report (02/08/2022 1:01 PM EST) Final Diagnosis [id number] ? Location: [facility]; [facility]; A The signing pathologist has (i) [...] DO Verified: ??02/16/2022 10:09 ??Pathologist Performed at: ??-[facility] Dept. of Pathology, [place] [address] Dental Claims Processor: Maria Ines Marrufo MD, AP, ??CLIA Certificate: [id number] DISCUSSION No malignancy is identified. ??The morphology [...] A2 ?CK20 ?Negative A2 ?CDX2 ?Negative A2 ?KAW1bskq ?Negative A2 ?Calretinin ?Rare positive cell (high [...] of soft, pink-white membranous tissue fragments. Sections/Processing: Client Operations Manager sections in 2 cassettes labeled B1-B2. ??sns ?Frozen Section FROZEN SECTION DIAGNOSIS AFS - Left pleural biopsy, ?? for frozen section (2 blocks): Atypical cells, cannot exclude malignancy, defer to permanent. 02/08/22 13:26 Electronically signed by: ?Malia Lacy MD Verified: ??02/08/2022 13:50 ??Pathologist Performed at: ??-[facility] Dept. of Pathology, [place] [address] Dental Claims Processor: Maria Ines Marrufo MD, FCAP, ??CLIA Certificate: [id number] This intraoperative consultation should be interpreted as [...] GY ORDERABLES Performing Organization Address City/[facility]/ZIP Co de Phone Number [facility] [address] [place] [address] * Specimen to Pathology (02/08/2022 1:01 PM EST) AP Specimen 02/08/2022 1:01 PM EST 02/08/2022 1:01 PM EST Narrative [facility] - 02/08/2022 1:01 PM EST Specimen requisition ordered. ??Separate Pathology report to follow Gilmer Foster MD PATHOLOGY/CYTOLO GY ORDERABLES [facility] [place] [address] * Flow Cytometry Report (02/08/2022 12:54 PM EST) Flow Cytometry Report [id number] ? Location: U; 08; A The signing [...] Ruddy Verified: ??02/09/2022 16:30 ??Hematopathologist Performed at: ??-[facility] Dept. of Pathology, [place] [address] Dental Claims Processor: Maria Ines Marrufo MD, FCAP, ??CLIA Certificate: [id number] DISCUSSION Blasts based on CD45 expression and orthogonal light scatter, are not increased. The CD19 positive B-cells have a polytypic expression of surface immunoglobulin light chain (Port Protection:Lambda ratio at 1.7). The T-cells are an admixture of CD4+ and CD8+ T lymphocytes (ratio of 1.6). No loss or atypical intensity distributions are seen for any nixon T antigen (CD2, 3, 4+8, 5, 7). There is no increase in WJ87-qdtstxxs/CD3-ne g NK cells. Flow analysis is an ancillary study. A definite diagnosis requires correlation with the morphologic features of this process and if necessary, correlation with other ancillary studies like immunohistochemistry , enzyme cytochemistry and/or cyto/ molecular genetics. This test was developed and its performance characteristics determined by the Clinical Flow Cytometry Laboratory at [facility]. It has not been cleared [...] high complexity clinical laboratory testing. SPECIMEN PROCESSING [id number] Cells for immunophenotypic analysis were derived from [...] MD PATHOLOGY/CYTOLO GY ORDERABLES Performing Organization Address [facility] [place] [address] * Body Fluid Culture, Aerobic (02/08/2022 12:54 [...] - G ENERAL ORDERABLES Performing Organization Address [facility] Co de Phone Number [facility] [place] [address] * Immunophenotyping Flow Cytometry (02/08/2022 12:54 PM EST) Immunophenotyping Flow See Comment [facility] Comment: When completed by the Pathologist, the Flow Cytometry Report ([id number]) will display under the Pathology Results section within [facility]. Other 02/08/2022 12:5 4 PM EST 02/08/2022 2:07 PM EST Narrative Resulting Agency Comment Spec In Lab Gilmer Foster MD HEMATOLOGY ORDER PHILOMENA Performing Organization Address City/[facility] Co de Phone Number [facility] [place] [address] * AFB culture Pleural Fluid (02/08/2022 12:54 PM EST) Acid Fast Bacilli Culture No Acid Fast Bacilli isolated If active tuberculosis is suspected, the patient should be on [employer] PRECAUTIONS. Call Infection Prevention for assistance if needed. [facility] Acid Fast Stain No Acid Fast Bacilli seen [facility] Pleural Fluid 02/08/2022 12: 54 PM EST 02/08/2022 2:17 PM EST Comment:Pleural fluid Narrative Resulting Agency Comment Spec In Lab Gilmer Foster MD MICROBIOLOGY - G ENERAL ORDERABLES Performing Organization Address City/[facility] Co de Phone Number [facility] [place] [address] * Fungus culture Pleural Fluid (02/08/2022 12:54 PM EST) Fungus Culture No Fungus isolated [facility] Pleural Fluid 02/08/2022 12: 54 PM EST 02/08/2022 2:17 PM EST Comment:Pleural fluid Narrative Resulting Agency Comment Spec In Lab Gilmer Foster MD MICROBIOLOGY - G ENERAL ORDERABLES Performing Organization Address [facility] [place] [address] documented in this encounter Visit Diagnoses Diagnosis [...] Oral, 3 TIMES DAILY, First dose on Stehpanie 02/08/22 at 2100, Until Discontinued, Routine Given 02/09/2022 9:00 PM EST 100 mg Given 02/09/2022 5:28 PM EST 100 mg Given 02/09/2022 8:27 AM EST 100 mg heparin (porcine) (5,000 units/1 mL) subcutaneous injection 5,000 Units 5,000 Units, Subcutaneous, CHEMISTRY PROFESSOR TO O.R., 1 dose, On Stephanie 02/08/22 [...] injection 5,000 Units (COMPLETED) 5,000 Units, Subcutaneous, CHEMISTRY PROFESSOR TO O.R., 1 dose, On Stephanie 02/08/22 at 1130, Not within 60 minutes of placing epidural catheter., Day of Surgery (Day of Procedure), Routine 1130 (Given - Provider: Marcus Kong RN) hydrOXYchloroQUINE (Plaquenil) tablet 200 mg 200 mg, Oral, DAILY, First dose on Sat02/09/22 at 0900, Until Discontinued, Routine 0827 (Given - Provider: Debbie Pride RN) 0836 (Given - Provider: Maila Paredes RN) lidocaine (Lidoderm) 5% patch 1 [...] Unit) documented in this encounter Care Teams Sap Bi Architect Relationship Specialty Start Date End Date Tami Olivia [address] [place] [address] PCP - General Family Medicine 12/30/20 documented as of this encounter
--- OUTSIDE RECORDS SUMMARY | 2023-12-31 22:48 | XMS_ITS | Encounter Summary ---
Author Organization [facility] [place] [address] Care Team Providers Care Vehicle Sales Professional Name Role Phone Tami Olivia Primary Care Provider [phone] Encounter Details Date Type Department Care Team (Late st Contact Info) Description 02/19/2022 Telephone [place] [phone] Megan Reza RN Social History [...] AM EST Office Visit Cardiology at [address] [phone] Chrissy Zepeda APRN [facility] [place] [address] Scheduled Procedures Name Priority Associated Diagnoses Date/Ti me CARDIOVERSION-ELECTIVE (WRVU 2) atrial flutter ELECTROPHYSIOLOGY PROCEDURE Persistent atrial fibrillation CARDIOVERSION-ELECTIVE (WRVU 2) persistent atrial fibrillation TRANSESOPHAGEAL ECHOCARDIOGR AM (WRVU 2.3) persistent atrial fibrillation documented as of this encounter Visit Diagnoses Not on filedocumented in this encounter Care Teams Vehicle Sales Professional Relationship Specialty Start Date End Date Tami Olivia [address] [place] [address] PCP - General Family Medicine 12/30/20 documented as of this encounter
--- OUTSIDE RECORDS SUMMARY | 2023-12-31 22:48 | XMS_ITS | Encounter Summary ---
Author Organization [facility] [place] [address] Care Team Providers Care Electronics Engineer Name Role Phone Tami Olivia Primary Care Provider Reason for Visit * Reason Onset Date Comments Other 11/03/2021 Encounter Details Date Type Department Care Team (Late st Contact Info) Description 11/03/2021 Telephone [place] [phone] Megan Reza RN Other Social History Tobacco [...] for 11/08/2021 at 10:30 am arrival in center receptionist area 3. He is aware and in agreement with this plan. documented in this encounter Plan of Treatment Upcoming Encounters Date Type Department Care Team (Late st Contact Info) Description 01/20/2024 10:40 AM EST Office Visit Cardiology at [address] [phone] Chrissy Zepeda GEOTHERM[employer] SHEET METAL WORKER [facility] [place] [address] Scheduled Procedures Name Priority Associated Diagnoses Date/Ti me CARDIOVERSION-ELECTIVE (WRVU 2) atrial flutter ELECTROPHYSIOLOGY PROCEDURE Persistent atrial fibrillation CARDIOVERSION-ELECTIVE (WRVU 2) persistent atrial fibrillation TRANSESOPHAGEAL ECHOCARDIOGR AM (WRVU 2.3) persistent atrial fibrillation documented as of this encounter Visit Diagnoses Not on filedocumented in this encounter Care Teams Electronics Engineer Relationship Specialty Start Date End Date Tami Olivia [address] [place] [address] PCP - General Family Medicine 12/30/20 documented as of this encounter
--- OUTSIDE RECORDS SUMMARY | 2023-12-31 22:48 | XMS_ITS | Encounter Summary ---
Author Organization [facility] Address [facility] [place] [address] Care Team Providers Care Brick Mason Name Role Phone Tami Olivia Primary Care Provider [phone] Encounter Details Date Type Department Care Team (Latest Contact Info) Description 01/29/2022 12:00 PM EST Laboratory Appointment Lab [address] [place] [phone] Status post lobectomy of lung; Primary squamous [...] AM EST Office Visit Cardiology at [address] [phone] Chrissy Zepeda, MORTE[facility] [place] [address] Scheduled Procedures Name Priority Associated Diagnoses Date/Ti [...] EST) Creatinine 1.11 0.80 - 1.50 mg/dL [facility] Est Glomerular Filtration Rate 71 >=60 mL/min/1. 73 m?? 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
--- OUTSIDE RECORDS SUMMARY | 2023-12-31 22:48 | XMS_ITS | Encounter Summary ---
Author Organization [facility] Address [facility] [place] [address] Care Team Providers Care Staff Accountant Name Role Phone Tami Olivia Primary Care Provider Encounter Details Date Type Department Care Team (Late st Contact Info) Description 12/11/2021 Ancillary Procedure Radiology Library at [facility] [place] [phone] Tami Olivia [address] [place], [place] [id number] Social History Tobacco Use Types Packs/Day Years [...] AM EST Office Visit Cardiology at [address] [place] [phone] Chrissy Zepeda APRN [facility] [place] [address] Scheduled Procedures Name Priority Associated Diagnoses Date/Ti [...] DX Chest (12/11/2021 12:00 AM EDT) Narrative [facility] - 12/16/2021 12:56 AM EDT This exam is auto-finalizing. It's purpose is for storage only. Tami Olivia [facility] FILM LIBRARY OR DERABLES Performing Organization Address City/State/[facility] Co de Phone Number [place], [place] documented in this encounter Visit Diagnoses Not on filedocumented in this encounter Care Teams Staff Accountant Relationship Specialty Start Date End Date Tami Olivia [address] [place] [address] PCP - General Family Medicine 12/30/20 documented as of this encounter
--- OUTSIDE RECORDS SUMMARY | 2023-12-31 22:49 | XMS_ITS | Encounter Summary ---
Author Organization [facility] Address [facility] [address] [place] [id number] Care Team Providers Care Vocational Coordinator Name Role Phone Tami Olivia Primary Care Provider [phone] Reason for Visit * Consultation (Urgent) - Closed Specialty Diagnoses / Procedures Referred By Bert gautam Referred To Contact Otolaryngology Diagnoses Pharyngeal lesion PET avid left lateral pharyngeal wall uptake, please eval Patient is scheduled for Left Upper Lobe lung Lobectomy on 03/29/2021, Gilmer Gutiérrez MD [facility] [place] [address] [facility] Otolaryngology [address] [place] [phone] Referral ID Status Reason Start Date Expiration Date V isits Requested Visits Authorized [id number] Closed Consult, Test & Treat 02/13/2021 02/13/2022 1 1 Encounter Details Date Type Department Care Team (Late st Contact Info) Description 02/17/2021 2:00 PM EST Office Visit [place] [phone] Gunnar Cottrell III, MD [facility] [place] [address] Pharyngeal candidiasis; Mucositis Social [...] Visit: 02/17/2021 Location of Visit: Otolaryngology Clinic, [facility] Patient: Rajan Marquez ([id number]; 1950) Primary Care Provider: Tami Olivia Referring [...] no known allergies. Social History: Lives in [place] [address], Tobacco:Yes Alcohol:Yes Other: Immunizations UTD. Family History: [...] AM EST Office Visit Cardiology at [address] [phone] Chrissy Zepeda APRN [facility] [place] [address] Scheduled Procedures Name Priority Associated Diagnoses Date/Ti [...] unspecified documented in this encounter Care Teams Vocational Coordinator Relationship Specialty Start Date End Date Tami Olivia [address] [place] [address] PCP - General Family Medicine 12/30/20 documented as of this encounter
--- OUTSIDE RECORDS SUMMARY | 2023-12-31 22:49 | XMS_ITS | Encounter Summary ---
Author Organization [facility] Address [facility] [place] [address] Care Team Providers Care Upper Stitcher Name Role Phone Tami Olivia Primary Care Provider [phone] Encounter Details Date Type Department Care Team (Late st Contact Info) Description 04/04/2021 Telephone Thoracic Surgery at [facility] [place] [phone] Megan Reza RN Social History Tobacco Use [...] 04/17/2021 CXR 04/17/2021 at 10:45 am in unit receptionist area 3L 04/17/2021 at 11:15 am in unit receptionist area 3K Rajan Marquez is aware of appointments and know to call with any questions or concerns. documented in this encounter Plan of Treatment Upcoming Encounters Date Type Department Care Team (Late st Contact Info) Description 01/20/2024 10:40 AM EST Office Visit Cardiology at [address] [phone] Chrissy Zepeda APRN [facility] [address] Scheduled Procedures Name Priority Associated Diagnoses Date/Ti me CARDIOVERSION-ELECTIVE (WRVU 2) atrial flutter ELECTROPHYSIOLOGY PROCEDURE Persistent atrial fibrillation CARDIOVERSION-ELECTIVE (WRVU 2) persistent atrial fibrillation TRANSESOPHAGEAL ECHOCARDIOGR AM (WRVU 2.3) persistent atrial fibrillation documented as of this encounter Visit Diagnoses Not on filedocumented in this encounter Care Teams Upper Stitcher Relationship Specialty Start Date End Date Tami Olivia [address] [place] [address] PCP - General Family Medicine 12/30/20 documented as of this encounter
--- OUTSIDE RECORDS SUMMARY | 2023-12-31 22:49 | XMS_ITS | Encounter Summary ---
Author Organization Formerly [facility] Address [facility] [place] [address] Care Team Providers Care Enterprise Applications Manager Name Role Phone Tami Olivia Primary Care Provider [phone] Reason for Visit * Auth/Cert Specialty Diagnoses / Procedures Referred By Bert gautam Referred To Contact Diagnoses Mass of upper lobe of left lung left upper lobe lung mass Procedures PRO THORACOSCOPY SURG LOBECTOMY PRO BRONCHOSCOPY, DIAGNOSTIC @THORACOSCOPY,SURGICAL,W\LOBECTOMY, TOTAL OR SEGMENTAL (WRVU 24.64) BRONCHOSCOPY, DIAGNOSTIC (WRVU 2.78) Referral ID Status Reason Start Date Expiration Date Visits Re quested Visits Authorized [id number] 1 1 Encounter Details Date Type Department Care Team (Latest Contact Info) Description 03/29/2021 10:54 AM EST - 04/01/2021 3:25 PM EST Hospital Encounter [place] [address] Gilmer Foster MD [facility] [place] [address] Mass of upper lobe of left lung; [...] Primary * Renu Tan PA - Physician Technical Architect * Say Mo MD - Resident Procedure: [...] Rajan Marquez was admitted to [facility] on 03/29/2021 via the Same [...] a nurse in the Thoracic Clinic at [phone]. After hours or on weekends or holidays please call: [phone] and ask to speak to the Thoracic [...] the Thoracic Clinic or the Thoracic Surgeon yardage control operator forming after hours. Please take over the counter [...] Expires XR Chest PA & Lateral (Generic) [[id number] Custom] 04/15/2021 10/15/2021 Process Instructions: Scheduling Instructions: Questions: Where will study be performed?: [facility] Radiology Portable exam?: Reason for exam and clinical history: s/p LULobectomy Clinical information / bryan questions for radiologist: Stat read required?: Date of injury if applicable: Requested Time: Provider Contact Information: Primary Care Provider: Tami Olivia [phone] Discharge References/Attachments: Discharge References/Attachments None For questions regarding this document or issues relating to this hospitalization on the Thoracic Surgery Service, please contact Dr. Foster's office at . Signed: STEVE Black 04/01/2021 Thoracic Surgery [facility] CC: PCP: Tami Olivia Referring: Tami Olivia [address] [place] [address] documented in this encounter Discharge Instructions * [...] a nurse in the Thoracic Clinic at [phone]. After hours or on weekends or holidays please call: [phone] and ask to speak to the Thoracic [...] the Thoracic Clinic or the Thoracic Surgeon yardage control operator forming after hours. Please take over the counter [...] Paredes RN - 04/01/2021 9:07 AM EST [facility] Short Stay Unit Discharge Note All [...] Mustafa PA - 03/31/2021 8:39 AM EST [facility] Department of Thoracic Surgery Inpatient Progress Note Patient Name: Rajan Marquez Patient : 1950 Patient Patient Location: [address] Attending Surgeon: GILMER FOSTER ID: Rajan [...] Result Value Ref Range Surgical Pathology Report [id number] Location: OR; OR11; A The signing pathologist [...] [facility] [place] Dept. [place], [place], [place] This intraoperative consultation should be interpreted [...] STEVE Sethi 03/31/2021 Thoracic Surgery Service Pager [phone] * Debbie Pride RN - 03/30/2021 11:05 [...] outlinedin this evaluation. Time IN / OUT: 4473-1906 Total Minutes, Physical Therapy: 25 (mod complexity eval ) Michaela Butcher, PT Pager: [phone] Physical Therapy Inpatient Rehabilitation Department * Sandra [...] of functional outcome. Sandra Goncalves OTR/L Pager [phone] Occupational Therapy Rehabilitation Department * Yosef Butcher PA - 03/30/2021 9:34 AM EST [facility] Department of Thoracic Surgery Inpatient Progress Note Patient Name: Rajan Marquez Patient : 1950 Patient Patient Location: [address] Attending Surgeon: GILMER FOSTER ID: Rajan [...] Result Value Ref Range Surgical Pathology Report [id number] Location: OR; OR11; A The signing pathologist has (i) examined the relevant preparation(s) for the specimen(s) and (ii) rendered or confirmed the diagnosis(es). . Frozen Section FROZEN SECTION DIAGNOSIS AFS - Left upper lobe wedge, excision (1) for frozen section Positive for non-small cell carcinoma. 03/29/21 13:48 Electronically signed by: Tafe MD, Malia Peterson: 03/29/2021 13:49 Pathologist Performed at: -[facility] Dept. of Pathology, [place], [place] This intraoperative consultation should be interpreted [...] OOB. Dispo: full code, floor status STEVE Lnez 03/30/2021 Thoracic Surgery Service Pager [phone] * Loreta Terrell APRN - 03/30/2021 9:19 AM EST [facility] Department of Thoracic Surgery Inpatient Post Op Check Note Patient Name: Rajan Marquez Patient : 1950 Patient [address] Attending Surgeon: GILMER FOSTER ID: Rajan [...] Result Value Ref Range Surgical Pathology Report [id number] Location: OR; OR11; A The signing pathologist [...] [facility] Dept. [place], [place], [place] This intraoperative consultation should be interpreted [...] Terrell APRN 03/30/2021 Thoracic Surgery Service Pager [phone] * Vanessa Salcedo RN - 03/29/2021 10:04 [...] Rosario MD - 03/29/2021 10:01 PM EST [facility] Department of Thoracic Surgery Inpatient Post Op Check Note Patient Name: Rajan Marquez Patient : 1950 Patient Patient Location: [address] Attending Surgeon: GILMER FOSTER ID: Rajan [...] Result Value Ref Range Surgical Pathology Report [id number] Location: OR; OR11; A The signing pathologist [...] [facility] [place] Dept. [place], [place], [place] This intraoperative consultation should be interpreted [...] Rosario MD 03/29/2021 Thoracic Surgery Service Pager [phone] * Debbie Pride RN - 03/29/2021 5:39 [...] STEVE Noguera 03/29/2021 Thoracic Surgery Service Pager [phone] documented in this encounter Nursing Notes * [...] anticipated Patient is insured through: Primary Insurance: [facility] MANAGED MEDICARE Payor: [facility] MANAGED MEDICARE / Plan: [facility] COM[facility]TE / Product Type: *No Producttype* / Secondary Insurance: N/A Prescription Coverage: YES Preferred Pharmacy: No Pharmacies Listed This plan was formulated with input from patient and team. All are in agreement with plan. Initial IMM given: 03/30/21 11:18 AM OCM RS to provide DC IMM R. (Jose Manuel) CHRISTINA Salinas RN/CM - Cellphone: [phone] Pager: [phone] Covering Service RN/CM * Initial Assessments - [...] SO, would be surrogate decision maker per [place] surrogate decision making law. (Only good for 180 days) Any patient receiving care at [facility] must abide by [place] law. The hierarchy for surrogate decision making [...] (i) The agent with financial power of collections attorney or a conservator appointed in accordance [...] Current DME: none Home Address confirmed as: [address] [place] [address] Social & Family Supports: All names listed below confirmed with patient as current and correct Extended Emergency Contact Information Primary Emergency Contact: SHAY PARISH Address: [address] [place] [address] of [facility] Mobile Relation: Life Partner Secondary Emergency [...] removed before discharge Health/Prescription Coverage: Primary Insurance: [facility] MANAGED MEDICARE Payor: [facility] MANAGED MEDICARE / Plan: [facility] COMPLETE / Product Type: *No Producttype* / Secondary Insurance: N/A Prescription Coverage: Yes Preferred Pharmacy: No Pharmacies Listed Patient reports he uses [facility], [place], [place] Status: Patient is a : No Primary Care Provider: Tami Olivia [phone] Patient/Caregiver Goals of Treatment: 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 PHONE: [phone] FAX: [phone] Transportation: no concerns Transportation Anticipated: family or [...] Reyes RN CM(remote) Melania Salinas RN CM [phone] * Brief Op Note - Say Mo MD - 03/29/2021 4:35 PM EST Brief Operative Note Patient Name: Rajan Marquez : [id number] MR#: [id number] Case Date: 03/29/2021 Surgeon: Surgeon(s) and Role: * Gilmer Foster MD - Primary * Renu Tan PA - Physician Technical Architect * Say Mo MD - Resident Preoperative [...] SPECIMEN TO PATHOLOGY Freeze mass, not margin 10000 left upper lobe lung mass left upper lobe wedge excision YES, Please perform frozen section 03/29/2021 1:18 PM Number of tissue samples (in container) 1 Time specimen removed from patient: 1:18 PM PATHOLOGY ORDER UPDATE [id number] 03/29/2021 1:29 PM Additional information: Additional Info Enter requested changes: Fragment of tumor marked with stitch eD-H Order Id number [id number] SPECIMEN TO PATHOLOGY 71500 left upper lobe lung mass left upper lobectomy resection 03/29/2021 3:39 PM Number of tissue samples (in container) 1 Time specimen removed from patient: 3:36 PM SPECIMEN TO PATHOLOGY 10728 left upper lobe lung mass AP Window [...] Operative Note Patient Name: Rajan Marquez : [id number] MR#: [id number] Case Date: 03/29/2021 Surgeon: Surgeon(s) and Role: * Gilmer Foster MD - Primary * Renu Tan PA - Physician Technical Architect * Say Mo MD - Resident Preoperative [...] SPECIMEN TO PATHOLOGY Freeze mass, not margin 26461 left upper lobe lung mass left upper lobe wedge excision YES, Please perform frozen section 03/29/2021 1:18 PM Number of tissue samples (in container) 1 Time specimen removed from patient: 1:18 PM PATHOLOGY ORDER UPDATE [id number] 03/29/2021 1:29 PM Additional information: Additional Info Enter requested changes: Fragment of tumor marked with stitch eD-H Order Id number [id number] SPECIMEN TO PATHOLOGY 97603 left upper lobe lung mass left upper lobectomy resection 03/29/2021 3:39 PM Number of tissue samples (in container) 1 Time specimen removed from patient: 3:36 PM SPECIMEN TO PATHOLOGY 27158 left upper lobe lung mass AP Window lymph node excision 03/29/2021 3:55 PM Number of tissue samples (in container) 1 Time specimen removed from patient: 3:54 PM Drains: 28 Monegasque chest tube, left Surgical Closure: Primary Closure [...] The aorticopulmonary window was explored and customer account representative lymph nodes were resected. After assessing each port site for hemostasis, a 28 Monegasque chest tube was placed through the camera [...] AM EST Office Visit [address]iology [place] [address] [place] [address] Chrissy Zepeda, MORTEZA [facility] [place] [address] Scheduled Procedures Name Priority Associated Diagnoses Date/Ti [...] Agent &/ Steroid Intercostal Nerve Single Level (86701) 03/29/2021 12:08 PM EST Mass of upper lobe of left lung Thoracoscopy With Mediastinal And Regional Lymphadenectomy 03/29/2021 12:08 PM EST Mass of upper lobe of left lung Bronchoscopy, Diagnostic (19897) 03/29/2021 12:08 PM EST Mass of upper lobe of left lung Thoracoscopy Surg Lobectomy (09872) 03/29/2021 12:08 PM EST Mass of upper [...] who have questions please contact the health pediatric acute care unit nurse that requested your imaging first. ? Narrative [...] patients who have questions please contactthe health pediatric acute care unit nurse that requested your imaging first. Gilmer [...] who have questions please contact the health pediatric acute care unit nurse that requested your imaging first. ? Narrative [...] patients who have questions please contactthe health pediatric acute care unit nurse that requested your imaging first. Gilmer Foster MD IMG DX ORDERABLE S * (ABNORMAL) Differential, Automated (04/01/2021 3:59 AM EST) Neutrophil % 74.5 % [facility] Neutrophil Absolute 7.27(H) 1.70 - 6.10 x10(3)/ L [facility] Lymph % 14.3 % [facility] Lymphocytes Abs 1.4 0.9 - 3.2 x10(3)/ L [facility] Monocyte % 9.1 % [facility] Monocyte Abs 0.9 0.3 - 0.9 x10(3)/[facility] Eos % 1.4 % [facility] Eosinophils Abs 0.1 0.0 - 0.4 x10(3)/[facility] Basophil % 0.3 % [facility] [...] MD HEMATOLOGY ORDERABLE S [facility] [place] [address] * (ABNORMAL) Hemogram (04/01/2021 3:59 AM EST) [...] HOSPITAL LABORATORY Platelet 176 145 - 357 x10(3)/[facility] RDW Standard Deviation 44.7 36.0 - 45.0 [facility] RDW coefficient of variation 13.2 11.4 - 13.8 % [facility] Mean Platelet Volume 10.1 7.6 - 12.9 [facility] NRBC% auto 0.0 % [facility] NRBC Absolute 0.000 0.000 - 0.000 x10(3)/[facility] Blood 04/01/2021 3:59 AM EST 04/01/2021 4:11 AM EST Narrative Resulting Agency Comment Spec In Lab Lacy Rosario MD HEMATOLOGY ORDERABLE S [facility] [place] [address] * Phosphorus (04/01/2021 3:59 AM EST) Phosphorus 3.2 2.5 - 4.5 mg/dL [facility] Blood 04/01/2021 3:59 AM EST 04/01/2021 4:11 AM EST Narrative Resulting Agency Comment Spec In Lab Gilmer Foster MD CHEMISTRY ORDERA BLES [facility] [place] [address] * Magnesium (04/01/2021 3:59 AM EST) Magnesium 0.85 0.69 - 1.07 mmol/L [facility] Blood 04/01/2021 3:59 AM EST 04/01/2021 4:11 AM EST Narrative Resulting Agency Comment Spec In Lab Gilmer Foster MD CHEMISTRY ORDERA BLES Performing Organization Address [facility]/ZIP Co de Phone Number [facility] [place] [address] * (ABNORMAL) Basic Metabolic Panel (non-fasting) (04/01/2021 3:59 AM EST) Pathologist [facility] Glucose 107 65 - 199 mg/dL [facility] [...] MD CHEMISTRY ORDERA JOSIE [facility] [place] [address] * XR Chest PA & Lateral (Generic) [...] who have questions please contact the health pediatric acute care unit nurse that requested your imaging first. ? Narrative [...] patients who have questions please contactthe health pediatric acute care unit nurse that requested your imaging first. Loreta Xander Casillas, DEPENDENCY DIRECTOR IMG DX ORDERABL ES * XR Chest [...] who have questions please contact the health pediatric acute care unit nurse that requested your imaging first. ? Narrative [...] patients who have questions please contactthe health pediatric acute care unit nurse that requested your imaging first. Electronically signed by: Savanah Suazo MD, [facility] ([phone]), at 03/31/2021 11:31 AM Gilmer Foster MD IMG DX ORDERABLE S * (ABNORMAL) Differential, Automated (03/31/2021 4:08 AM EST) Neutrophil % 71.6 % [facility] Neutrophil Absolute 7.59(H) 1.70 - 6.10 x10(3)/ L [facility] Lymph % 18.1 % [facility] Lymphocytes Abs 1.9 0.9 - 3.2 x10(3)/ L [facility] Monocyte % 8.7 % [facility] Monocyte Abs 0.9 0.3 - 0.9 x10(3)/ L [facility] Eos % 0.6 % [facility] Eosinophils Abs 0.1 0.0 - 0.4 x10(3)/[facility] Basophil % 0.5 % [facility] Baso Absolute 0.0 0.0 - 0.1 x10(3)/[facility] Immature Gran % 0.50 % [facility] Comment: Immature granulocytes(IG's)percentage and absolute count will include metamyelocytes, myelocytes, and promyelocytes. Blood smears from CBCs yielding IG's will be scanned manually for concordance. If this scan disagrees with the automated IG or if promyelocytes are noted, a manual differential will be performed. Immature Gran Absolute 0.05(H) 0.00 - 0.04 x10(3)/[facility] Blood 03/31/2021 4:08 AM EST 03/31/2021 4:16 AM EST Narrative Resulting Agency Comment Spec In Lab Lacy Rosario MD HEMATOLOGY ORDERABLE S [facility] [place] [address] * (ABNORMAL) Hemogram (03/31/2021 4:08 AM EST) Pathologist [facility] White Blood Cell 10.6(H) 4.0 - 9.5 x10(3)/[facility] Red Blood Cell 3.99(L) 4.58 [...] [facility] NRBC% auto 0.0 % [facility] NRBC Absolute 0.000 0.000 - 0.000 x10(3)/mc L [facility] Blood 03/31/2021 4:08 AM EST 03/31/2021 4:16 AM EST Narrative Resulting Agency Comment Spec In Lab Lacy Rosario MD HEMATOLOGY ORDERABLE S [facility] [place] [address] * Phosphorus (03/31/2021 4:08 AM EST) Phosphorus 3.2 2.5 - 4.5 mg/dL [facility] Blood 03/31/2021 4:08 AM EST 03/31/2021 4:16 AM EST Narrative Resulting Agency Comment Spec In Lab Gilmer Foster MD CHEMISTRY ORDERA BLES [facility] [place] [address] * Magnesium (03/31/2021 4:08 AM EST) Magnesium 0.86 0.69 - 1.07 mmol/L [facility] Blood 03/31/2021 4:08 AM EST 03/31/2021 4:16 AM EST Narrative Resulting Agency Comment Spec In Lab Gilmer Foster MD CHEMISTRY ORDERA BLES [facility] [place] [address] * (ABNORMAL) Basic Metabolic Panel (non-fasting) (03/31/2021 4:08 AM EST) Pathologist [facility] Glucose 114 65 - 199 mg/dL [facility] [...] MD CHEMISTRY ORDERA BLES [facility] [place] [address] * (ABNORMAL) XR Chest PA & Lateral [...] who have questions please contact the health pediatric acute care unit nurse that requested your imaging first. ? Narrative [...] patients who have questions please contactthe health pediatric acute care unit nurse that requested your imaging first. Gilmer Foster MD IMG DX ORDERABLE S * (ABNORMAL) Differential, Automated (03/30/2021 4:04 AM EST) Neutrophil % 86.1 % [facility] Neutrophil Absolute 13.63(H) 1.70 - 6.10 x10(3)/mc L [facility] Lymph % 7.9 % [facility] Lymphocytes Abs 1.2 0.9 - 3.2 x10(3)/mc L [facility] Monocyte % 5.6 % [facility] Monocyte Abs 0.9 0.3 - 0.9 x10(3)/[facility] Eos % 0.0 % [facility] Eosinophils Abs 0.0 0.0 - 0.4 x10(3)/[facility] Basophil % 0.1 % [facility] Baso Absolute 0.0 0.0 - 0.1 x10(3)/[facility] Immature Gran % 0.30 % [facility] Comment: Immature granulocytes(IG's)percentage and absolute count will include metamyelocytes, myelocytes, and promyelocytes. Blood smears from CBCs yielding IG's will be scanned manually for concordance. If this scan disagrees with the automated IG or if promyelocytes are noted, a manual differential will be performed. Immature Gran Absolute 0.05(H) 0.00 - 0.04 x10(3)/[facility] Blood 03/30/2021 4:04 AM EST 03/30/2021 4:14 AM EST Narrative Resulting Agency Comment Spec In Lab Lacy Rosario MD HEMATOLOGY ORDERABLE S [facility] [place] [address] * (ABNORMAL) Hemogram (03/30/2021 4:04 AM EST) White Blood Cell 15.8(H) 4.0 - 9.5 x10(3)/[facility] Red Blood Cell 4.20(L) 4.58 - 5.54 x10(6)/[facility] Hemoglobin 13.1(L) 13.7 - 16.5 [...] [facility] NRBC% auto 0.0 % [facility] NRBC Absolute 0.000 0.000 - 0.000 x10(3)/mc L [facility] Blood 03/30/2021 4:04 AM EST 03/30/2021 4:14 AM EST Narrative Resulting Agency Comment Spec In Lab Lacy Rosario MD HEMATOLOGY ORDERABLE S Performing Organization Address City/[facility]/ZIP Co de Phone Number [facility] [place] [address] * Phosphorus (03/30/2021 4:04 AM EST) Phosphorus 3.1 2.5 - 4.5 mg/dL [facility] Blood 03/30/2021 4:04 AM EST 03/30/2021 4:14 AM EST Narrative Resulting Agency Comment Spec In Lab Gilmer Foster MD CHEMISTRY ORDERA BLES Performing Organization Address City/[facility]/ZIP Co de Phone Number [facility] [place] [address] * (ABNORMAL) Magnesium (03/30/2021 4:04 AM EST) Magnesium 0.67(L) 0.69 - 1.07 mmol/L [facility] Blood 03/30/2021 4:04 AM EST 03/30/2021 4:14 AM EST Narrative Resulting Agency Comment Spec In Lab Gilmer Foster MD CHEMISTRY ORDERA BLES [facility] [place] [address] * Basic Metabolic Panel (non-fasting) (03/30/2021 4:04 [...] MD CHEMISTRY CARMEN GALINDO [facility] [place] [address] * XR Chest One View (03/29/2021 5:35 [...] who have questions please contact the health pediatric acute care unit nurse that requested your imaging first. ? Narrative [...] patients who have questions please contactthe health pediatric acute care unit nurse that requested your imaging first. Gilmer Foster MD IMG DX ORDERABLE S * Specimen to Pathology (03/29/2021 3:55 PM EST) AP Specimen 03/29/2021 3:55 PM EST 03/29/2021 3:55 PM EST Narrative [facility] - 03/29/2021 3:55 PM EST Specimen requisition ordered. ??Separate Pathology report to follow Gilmer Foster MD PATHOLOGY/CYTOLO GY ORDERABLES Performing Organization Address [facility] Co de Phone Number [facility] [place] [address] * Specimen to Pathology (03/29/2021 3:39 PM EST) AP Specimen 03/29/2021 3:39 PM EST 03/29/2021 3:39 PM EST Narrative [facility] - 03/29/2021 3:39 PM EST Specimen requisition ordered. ??Separate Pathology report to follow Gilmer Foster MD PATHOLOGY/CYTOLO GY ORDERABLES Performing Organization Address [facility]/ZIP Co de Phone Number [facility] [place] [address] * Solid Tumor NGS Panel (03/29/2021 1:18 PM EST) Tissue 03/29/2021 1:18 PM EST 04/10/2021 2:38 PM EST Narrative Resulting Agency Comment Spec In Lab Gilmer Foster MD PATHOLOGY/CYTOLO GY ORDERABLES Performing Organization Address [facility] de Phone Number [facility] [place] [address] * Surgical Pathology Report (03/29/2021 1:18 PM EST) Final Diagnosis [id number] ? Location: [facility]; [address] The signing pathologist has (i) examined [...] The assay was performed according to the pantomimist's instructions using Anti-PD-L1 (22C3, pharmDX) antibody. Electronically signed by: ?Eugene FLORES PhD, Alysia Verified: ??04/12/2021 8:54 ?? Pathologist Performed at: ??-[facility] Dept. of Pathology, [place], [place] ?Surgical Pathology DIAGNOSIS A) Left upper [...] [facility] [place], [place] SYNOPTIC Specimen ? Procedure: ??Lobectomy ? [...] These foci are ?favored to represent entrapped [place] mucin cells; however, the possibility ?of focal glandular carcinoma differentiation cannot be entirely excluded. Tumor Block(s): ??B7 Normal Block(s): ??C1 [facility] January 2021 Release DISCUSSION Tumor somatic mutation testing and PD-L1 IHC testing have been ordered and will be reported separately. ADDITIONAL STUDIES Whole slide scan: customer account representative slide(s) EVG stains were evaluated for [...] ?Negative B5 ? p40 ?Positive B5 ? [id number] ? Positive B6 ? [id number] ? Positive B8 ? p40 ?Positive B8 [...] is submitted for frozen section: FS 1-lesion. Groundman/Lineman sections in 3 cassettes as follows: ?A1: ??FS1 frozen section remnant/lesion ?A2: ??Closest staple line (including possible residual lesion) ?A3: ??Groundman/Lineman lung parenchyma adjacent to lesion B - [...] of friable pleural disruption is inked blue Groundman/Lineman sections in 14 cassettes as follows: ?B1: ??Bronchial margin, en face ?B2: ??Vascular margins, en face ?B3: ??Parenchymal staple margin ?B4: ??Prior wedge staple line ?B5-B7: ??Mass in relation to disrupted pleura (inked blue) ?B8-B9: ??Mass with adjacent uninvolved lung parenchyma . SPECIMEN PROCESSING ?B10: ??Groundman/Lineman uninvolved lung parenchyma ?B11: ??Single intact lobar [...] [facility] [place] Dept. [place]ology, [place], [place] This intraoperative consultation should be interpreted [...] MD PATHOLOGY/CYTOLO GY ORDERABLES [facility] [place] [address] * Specimen to Pathology (03/29/2021 1:18 PM EST) AP Specimen 03/29/2021 1:18 PM EST 03/29/2021 1:18 PM EST Narrative [facility] - 03/29/2021 1:18 PM EST Specimen requisition ordered. ??Separate Pathology report to follow Gilmer Foster MD PATHOLOGY/CYTOLO GY ORDERABLES Performing Organization Address City/[facility]/ZIP Co de Phone Number [facility] [place] [address] * POCT Glucose (03/29/2021 12:02 PM EST) Glucose, POC 89 65 - 199 mg/dL [facility] Comment: Supplemental ranges: <140 mg/dL before meals <180 mg/dL all other times of the day Blood 03/29/2021 12:0 2 PM EST 03/29/2021 12:02 PM EST Gilmer Fotser MD POINT OF CARE TE ST ORDERABLES Performing Organization Address [facility] Co de Phone Number [facility] [place] [address] documented in this encounter Visit Diagnoses Diagnosis [...] on Sat03/30/21 at 0130, Last dose on [facility] 04/01/21 at 1730, Routine Given 04/01/2021 9:02 [...] subcutaneous injection 5,000 Units 5,000 Units, Subcutaneous, ENVIRONMENTAL CONSULTANT TO O.R., 1 dose, On Sat03/29/21 at [...] 5 mg, Oral, DAILY, First dose on [facility] 03/30/21 at 1015, Until Discontinued, Routine Given 04/01/2021 9:01 AM EST 5 mg Given 03/31/2021 9:08 AM EST 5 mg Given 03/30/2021 11:39 AM EST 5 mg magnesium sulfate 2 g in sterile water 50 mL infusion 2 g, Intravenous, ONCE, 1 dose, On [facility] 03/30/21 at 0800, Administer over 120 Minutes New Bag 03/30/2021 11:36 AM EST 2 g 25 mL/hr mometasone (Asmanex) aerosol 2 puff 2 puff (440 mcg), Inhalation, 2 TIMES DAILY, First dose on [facility] 03/30/21 at 1030, Until Discontinued, Routine, Does the patient have the inspiratory effort to support a dry powder inhaler? Yes Given 04/01/2021 8:59 AM EST 2 puffs Given 03/31/2021 8:20 PM EST 2 puffs Given 03/31/2021 9:07 AM EST 2 puffs nicotine (Nicoderm CQ) 21 mg/24 hr patch 21 mg 21 mg (1 patch), Transdermal, DAILY, First dose on [facility] 03/30/21 at 0900, Until Discontinued, Apply [...] Patch Removal Transdermal, DAILY, First dose on [facility] 03/30/21 at 0900, Until Discontinued, Remove [...] patch documented in this encounter Care Teams Enterprise Applications Manager Relationship Specialty Start Date End Date Corwin Tami [address] [place] [address] PCP - General Family Medicine 12/30/20 documented as of this encounter
--- OUTSIDE RECORDS SUMMARY | 2023-12-31 22:49 | XMS_ITS | Encounter Summary ---
Author Organization [facility] Address [facility] [place] [address] Care Team Providers Care Instruction Assistant Principal Name Role Phone Tami Olivia Primary Care Provider [phone] Reason for Visit * Reason Onset Date Comments Other 04/11/2021 Encounter Details Date Type Department Care Team (Late st Contact Info) Description 04/11/2021 Telephone Thoracic Surgery at [facility] [place] [phone] Megan Reza RN Other Social History Tobacco [...] AM EST Office Visit Cardiology at [address] [address] Chrissy Zepeda APRN [facility] [place] [address] Scheduled Procedures Name Priority Associated Diagnoses Date/Ti me CARDIOVERSION-ELECTIVE (WRVU 2) atrial flutter ELECTROPHYSIOLOGY PROCEDURE Persistent atrial fibrillation CARDIOVERSION-ELECTIVE (WRVU 2) persistent atrial fibrillation TRANSESOPHAGEAL ECHOCARDIOGR AM (WRVU 2.3) persistent atrial fibrillation documented as of this encounter Visit Diagnoses Not on filedocumented in this encounter Care Teams Instruction Assistant Principal Relationship Specialty Start Date End Date Tami Olivia [address] [place] [address] PCP - General Family Medicine 12/30/20 documented as of this encounter
--- OUTSIDE RECORDS SUMMARY | 2023-12-31 22:49 | XMS_ITS | Encounter Summary ---
Author Organization [facility] Address [facility] [place] [address] Care Team Providers Care Public Health Informatician Name Role Phone Tami Olivia Primary Care Provider [phone] Encounter Details Date Type Department Care Team (Latest Contact Info) Description 02/13/2021 10:02 AM EST Hospital Encounter Non[place] [address] Gilmer Gutiérrez MD [facility] [place] [address] Discharge Disposition: Home Social History Tobacco Use [...] AM EST Office Visit Cardiology at [address] [phone] Chrissy Zepeda APRN [facility] [place] [address] Scheduled Procedures Name Priority Associated Diagnoses Date/Ti [...] on filedocumented in this encounter Care Teams Public Health Informatician Relationship Specialty Start Date End Date Tami Olivia [address] [place] [address] PCP - General Family Medicine 12/30/20 documented as of this encounter
--- OUTSIDE RECORDS SUMMARY | 2023-12-31 22:49 | XMS_ITS | Encounter Summary ---
Author Organization [facility] [place] [address] Care Team Providers Care Keg Header Name Role Phone Tami Olivia Primary Care Provider [phone] Encounter Details Date Type Department Care Team (Late st Contact Info) Description 02/27/2021 Telephone [place] [address] Megan Reza RN Social History [...] AM EST Office Visit Cardiology at [address] [phone] Chrissy Zepeda APRN [facility] [place] [address] Scheduled Procedures Name Priority Associated Diagnoses Date/Ti me CARDIOVERSION-ELECTIVE (WRVU 2) atrial flutter ELECTROPHYSIOLOGY PROCEDURE Persistent atrial fibrillation CARDIOVERSION-ELECTIVE (WRVU 2) persistent atrial fibrillation TRANSESOPHAGEAL ECHOCARDIOGR AM (WRVU 2.3) persistent atrial fibrillation documented as of this encounter Visit Diagnoses Not on filedocumented in this encounter Care Teams Keg Header Relationship Specialty Start Date End Date Tami Olivia [address] [place] [address] PCP - General Family Medicine 12/30/20 documented as of this encounter
--- OUTSIDE RECORDS SUMMARY | 2023-12-31 22:49 | XMS_ITS | Encounter Summary ---
Author Organization Count Includes [facility] Address [facility] [place] [address] Care Team Providers Care Head Sawyer Name Role Phone Tami Olivia Primary Care Provider [phone] Encounter Details Date Type Department Care Team (Latest Contact Info) Description 02/13/2021 2:30 PM EST Clinical Support Tobacco Treatment at [facility] [place] [place] [address] Anali Benítez Cigarette nicotine dependence without complication [...] AM EST Office Visit Cardiology at [address] [phone] Chrissy Zepeda, MORTEZA [facility] [place] [address] Scheduled Procedures Name Priority Associated Diagnoses Date/Ti me CARDIOVERSION-ELECTIVE (WRVU 2) atrial flutter ELECTROPHYSIOLOGY PROCEDURE Persistent atrial fibrillation CARDIOVERSION-ELECTIVE (WRVU 2) persistent atrial fibrillation TRANSESOPHAGEAL ECHOCARDIOGR AM (WRVU 2.3) persistent atrial fibrillation documented as of this encounter Visit Diagnoses Diagnosis Cigarette nicotine dependence without complication Tobacco use disorder documented in this encounter Care Teams Head Sawyer Relationship Specialty Start Date End Date Tami Olivia [address] [place] [address] PCP - General Family Medicine 12/30/20 documented as of this encounter
--- OUTSIDE RECORDS SUMMARY | 2023-12-31 22:49 | XMS_ITS | Encounter Summary ---
Author Organization [facility] Address [facility] [place] [address] Care Team Providers Care Golf Tournament Consultant Name Role Phone Tami Olivia Primary Care Provider [phone] Encounter Details Date Type Department Care Team (Latest Contact Info) Description 02/13/2021 12:56 PM EST - 02/13/2021 11:59 PM EST Hospital Encounter Pulmonology at [facility] [place] [phone] Mass of upper lobe of left lung; [...] AM EST Office Visit Cardiology at [address] [phone] Chrissy Zepeda APRN [facility] [place] [address] Scheduled Procedures Name Priority Associated Diagnoses Date/Ti [...] / FVC LLN 63 % COMPAS PFT HFJ12-12 Actual Pre-BD 3.63 L/s COMPAS PFT IKT41-36 Pre-BD % of Predicted 159 % COMPAS PFT VHN39-50 Predicted 2.29 L/s COMPAS PFT JWQ87-28 Pre-BD Z-Score 1.24 COMPAS PFT DLCO Hb [...] examination documented in this encounter Care Teams Golf Tournament Consultant Relationship Specialty Start Date End Date Tami Olivia [address] [place] [address] PCP - General Family Medicine 12/30/20 documented as of this encounter
--- OUTSIDE RECORDS SUMMARY | 2023-12-31 22:49 | XMS_ITS | Encounter Summary ---
Author Organization [facility] Address [facility] [place] [address] Care Team Providers Care Visual Basic Developer Name Role Phone Tami Olivia Primary Care Provider [phone] Reason for Referral * Diagnostic Test (Routine) - Closed Specialty Diagnoses / Procedures Referred By Contac t Referred To Contact Radiology Diagnoses Mass of upper lobe of left lung Pre-operative cardiovascular examination, high risk surgery Procedures NM Exercise Stress CT Component Gilmer Gutiérrez MD [facility] [place] [address] [place] [address] Referral ID Status Reason Start Date Expiration Date V isits Requested Visits Authorized [id number] Closed Specialty Service Requested 02/09/2021 03/26/2021 1 1 Reason for Visit * Diagnostic Test (Routine) - Closed Specialty Diagnoses / Procedures Referred By Contac t Referred To Contact Radiology Diagnoses Mass of upper lobe of left lung Pre-operative cardiovascular examination, high risk surgery Procedures NM Exercise Stress CT Component Gilmer Gutiérrez MD [facility] [place] [address] [place] [address] Referral ID Status Reason Start Date Expiration Date V isits Requested Visits Authorized [id number] Closed Specialty Service Requested 02/09/2021 03/26/2021 1 1 Encounter Details Date Type Department Care Team (Latest Contact Info) Description 02/13/2021 10:03 AM EST - 02/13/2021 12:55 PM EST Hospital Encounter [place] [address] Gilmer Gutiérrez MD [facility] [place] [address] Mass of upper lobe of left lung; [...] AM EST Office Visit Cardiology at [address] [phone] Chrissy Zepeda APRN [facility] [place] [address] Scheduled Procedures Name Priority Associated Diagnoses Date/Ti [...] who have questions please contact the health manager intensive care unit that requested your imaging first. ? Electronically signed by: Marcus Edwards MD, [facility] ([phone]), at 02/13/2021 4:12 PM Procedure Note Marcus [...] patients who have questions please contactthe health manager intensive care unit that requested your imaging first. Electronically signed by: Marcus Edwards MD, [facility]([phone]), at 02/13/2021 4:12 PM Gilmer Gutiérrez MD [facility] [place] ORDERABLE S documented in this encounter Visit Diagnoses Diagnosis Mass of upper lobe of left lung Pre-operative cardiovascular examination, high risk surgery Pre-operative cardiovascular examination documented in this encounter Care Teams Visual Basic Developer Relationship Specialty Start Date End Date Tami Olivia [address] [place] [address] PCP - General Family Medicine 12/30/20 documented as of this encounter
--- OUTSIDE RECORDS SUMMARY | 2023-12-31 22:49 | XMS_ITS | Encounter Summary ---
Author Organization [facility] Address [facility] [place] [address] Care Team Providers Care Virtual Assistant For Advertisers Name Role Phone Tami Olivia Primary Care Provider [phone] Reason for Visit * Reason Onset Date Comments Prior Authorization 04/14/2021 Molecular ca ncer testing - A covered benefit Encounter Details Date Type Department Care Team (Late st Contact Info) Description 04/14/2021 Telephone [place] [phone] Lesly Bond Prior Authorization (Molecular cancer testing [...] received an e-mail from [employer] in [employer] ([id number]) requesting coverage review for CPT 12265 which is to be done on the patient's left lung cancer biopsy. Ordering provider is Gilmer Gutiérrez MD. Per a call to [facility] ( ), policy [id number] is an active HMO with a [place] PCP listed. [facility] is in-network. CPT 13987 is a covered benefit with no authorization needed. Ref: [id number]. I will e-mail [employer] to let her know CPT 00252 is a covered benefit. documented in this encounter Plan of Treatment Upcoming Encounters Date Type Department Care Team (Late st Contact Info) Description 01/20/2024 10:40 AM EST Office Visit Cardiology at [address] [phone] Chrissy Zepeda, MORTEZA [facility] [address] Scheduled Procedures Name Priority Associated Diagnoses Date/Ti me CARDIOVERSION-ELECTIVE (WRVU 2) atrial flutter ELECTROPHYSIOLOGY PROCEDURE Persistent atrial fibrillation CARDIOVERSION-ELECTIVE (WRVU 2) persistent atrial fibrillation TRANSESOPHAGEAL ECHOCARDIOGR AM (WRVU 2.3) persistent atrial fibrillation documented as of this encounter Visit Diagnoses Not on filedocumented in this encounter Care Teams Virtual Assistant For Advertisers Relationship Specialty Start Date End Date Tmai Olivia [address] [place] [address] PCP - General Family Medicine 12/30/20 documented as of this encounter
--- OUTSIDE RECORDS SUMMARY | 2023-12-31 22:49 | XMS_ITS | Encounter Summary ---
Author Organization [facility] Address [facility] [place] [address] Care Team Providers Care Interlocking Tower Operator Name Role Phone Tami Olivia Primary Care Provider [phone] Reason for Visit * Reason Onset Date Comments Results 03/27/2021 Negative Covid f or Pre-op Encounter Details Date Type Department Care Team (Late st Contact Info) Description 03/27/2021 Telephone [place] [address] Gabriela Milligan, RN Results (Negative [...] AM EST Office Visit Cardiology at [address] [phone] Chrissy Zepeda, FLAKING ROLL OPERATOR [facility] [address] [place] [place], [place] [phone] Scheduled Procedures Name Priority Associated Diagnoses Date/Ti me CARDIOVERSION-ELECTIVE (WRVU 2) atrial flutter ELECTROPHYSIOLOGY PROCEDURE Persistent atrial fibrillation CARDIOVERSION-ELECTIVE (WRVU 2) persistent atrial fibrillation TRANSESOPHAGEAL ECHOCARDIOGR AM (WRVU 2.3) persistent atrial fibrillation documented as of this encounter Visit Diagnoses Not on filedocumented in this encounter Care Teams Interlocking Tower Operator Relationship Specialty Start Date End Date Tami Olivia [address] [place] [address] PCP - General Family Medicine 12/30/20 documented as of this encounter
--- OUTSIDE RECORDS SUMMARY | 2023-12-31 22:49 | XMS_ITS | Encounter Summary ---
Author Organization [facility] Address [facility] [place] [address] Care Team Providers Care Press Puller Name Role Phone Tami Olivia Primary Care Provider [phone] Reason for Visit * Auth/Cert Specialty Diagnoses / Procedures Referred By Bert gautam Referred To Contact Diagnoses Mass of upper lobe of left lung left upper lobe lung mass Procedures PRO THORACOSCOPY SURG LOBECTOMY PRO BRONCHOSCOPY, DIAGNOSTIC @THORACOSCOPY,SURGICAL,W\LOBECTOMY, TOTAL OR SEGMENTAL (WRVU 24.64) BRONCHOSCOPY, DIAGNOSTIC (WRVU 2.78) Referral ID Status Reason Start Date Expiration Date Visits Re quested Visits Authorized [id number] 1 1 Encounter Details Date Type Department Care Team (Late st Contact Info) Description 03/29/2021 12:00 PM EST - 03/29/2021 4:45 PM EST Surgery [place] [id number] Gilmer Foster MD [facility] [place] [address] @THORACOSCOPY,SURGICAL ,W\LOBECTOMY,TOTAL OR SEGMENTAL (WRVU 24.64) Social [...] Primary * Renu Tan PA - Physician Carry In Worker * Say Mo MD - Resident Procedure: [...] Hospital Course: Rajan Marquez was admitted to [facility] on 03/29/2021 via the Same Day Program. [...] a nurse in the Thoracic Clinic at [phone]. After hours or on weekends or holidays please call: [phone] and ask to speak to the Thoracic [...] the Thoracic Clinic or the Thoracic Surgeon ribbon tier after hours. Please take over the counter [...] Expires XR Chest PA & Lateral (Generic) [[id number] Custom] 04/15/2021 10/15/2021 Process Instructions: Scheduling Instructions: Questions: Where will study be performed?: [facility] Radiology Portable exam?: Reason for exam and clinical history: s/p LULobectomy Clinical information / bryan questions for radiologist: Stat read required?: Date of injury if applicable: Requested Time: Provider Contact Information: Primary Care Provider: Tami Olivia [phone] Discharge References/Attachments: Discharge References/Attachments None For questions regarding this document or issues relating to this hospitalization on the Thoracic Surgery Service, please contact Dr. Foster's office at . Signed: STEVE Black 04/01/2021 Thoracic Surgery [facility] CC: PCP: Tami Olivia Referring: Tami Olivia [address] [place] [address] documented in this encounter Discharge Instructions * [...] a nurse in the Thoracic Clinic at [phone]. After hours or on weekends or holidays please call: [phone] and ask to speak to the Thoracic [...] the Thoracic Clinic or the Thoracic Surgeon ribbon tier after hours. Please take over the counter [...] Paredes RN - 04/01/2021 9:07 AM EST [facility] Short Stay Unit Discharge Note All [...] Marquez Patient : 1950 Patient Patient Location: [address] Attending Surgeon: GILMER FOSTER ID: Rajan [...] 03/29/2021 in Short Stay Unit at [facility] Office Visit from 02/17/2021 in [place] [facility] Weight 100.3 kilograms, or 221 pounds 1.6 [...] Result Value Ref Range Surgical Pathology Report [id number] Location: OR; OR11; A The signing pathologist has (i) examined the relevant preparation(s) for the specimen(s) and (ii) rendered or confirmed the diagnosis(es). . Frozen Section FROZEN SECTION DIAGNOSIS AFS - Left upper lobe wedge, excision (1) for frozen section Positive for non-small cell carcinoma. 03/29/21 13:48 Electronically signed by: Malia Lacy MD Verified: 03/29/2021 13:49 Pathologist Performed at: -[facility] Dept. [place] Pathology, [place], [place] This intraoperative consultation should be interpreted [...] STEVE Sethi 03/31/2021 Thoracic Surgery Service Pager [phone] * Debbie Pride RN - 03/30/2021 11:05 [...] outlinedin this evaluation. Time IN / OUT: 7938-0502 Total Minutes, Physical Therapy: 25 (mod complexity eval ) Michaela Buthcer, PT Pager: [phone] Physical Therapy Inpatient Rehabilitation Department * Sandra [...] of functional outcome. Sandra Goncalves OTR/L Pager [phone] Occupational Therapy Rehabilitation Department * Yosef Butcher PA - 03/30/2021 9:34 AM EST [facility] Department of Thoracic Surgery Inpatient Progress Note Patient Name: Rajan Marquez Patient : 1950 Patient Patient Location: [address] Attending Surgeon: GILMER FOSTER ID: Rajan [...] 03/29/2021 in Short Stay Unit at [facility] Office Visit from 02/17/2021 in Otol[place]ology at [facility] Weight 100.3 kg (221 lb 1.6 oz) [...] Result Value Ref Range Surgical Pathology Report [id number] Location: OR; OR11; A The signing pathologist has (i) examined the relevant preparation(s) for the specimen(s) and (ii) rendered or confirmed the diagnosis(es). . Frozen Section FROZEN SECTION DIAGNOSIS AFS - Left upper lobe wedge, excision (1) for frozen section Positive for non-small cell carcinoma. 03/29/21 13:48 Electronically signed by: Malia Lacy MD Verified: 03/29/2021 13:49 Pathologist Performed at: -[facility] Dept. of Pathology, [place], [place] This intraoperative consultation should be interpreted [...] STEVE Lenz 03/30/2021 Thoracic Surgery Service Pager [phone] * Loreta Terrell APRN - 03/30/2021 9:19 AM EST [facility] Department of Thoracic Surgery Inpatient Post Op Check Note Patient Name: Rajan Marquez Patient : 1950 Patient Patient [facility]: [facility] Attending Surgeon: GILMER FOSTER ID: Rajan Marquez [...] 03/29/2021 in Short Stay Unit at [facility] Office Visit from 02/17/2021 in [facility]ology at [facility] Weight 100.3 kilograms, or 221 pounds 1.6 [...] Result Value Ref Range Surgical Pathology Report [id number] Location: OR; OR11; A The signing pathologist has (i) examined the relevant preparation(s) for the specimen(s) and (ii) rendered or confirmed the diagnosis(es). . Frozen Section FROZEN SECTION DIAGNOSIS AFS - Left upper lobe wedge, excision (1) for frozen section Positive for non-small cell carcinoma. 03/29/21 13:48 Electronically signed by: Malia Lacy MD Verified: 03/29/2021 13:49 Pathologist Performed at: -[facility] Dept. of Pathology, [place], [place] This intraoperative consultation should be interpreted [...] Terrell APRN 03/30/2021 Thoracic Surgery Service Pager [phone] * Vanessa Salcedo RN - 03/29/2021 10:04 [...] Marquez Patient : 1950 Patient Patient Location: [address] Attending Surgeon: GILMER FOSTER ID: Rajan [...] 03/29/2021 in Short Stay Unit at [facility] Office Visit from 02/17/2021 in Otol[facility]ology at [facility] Weight 100.3 kg (221 lb 1.6 oz) [...] Result Value Ref Range Surgical Pathology Report [id number] Location: OR; OR11; A The signing pathologist has (i) examined the relevant preparation(s) for the specimen(s) and (ii) rendered or confirmed the diagnosis(es). . Frozen Section FROZEN SECTION DIAGNOSIS AFS - Left upper lobe wedge, excision (1) for frozen section Positive for non-small cell carcinoma. 03/29/21 13:48 Electronically signed by: Malia Lacy MD Verified: 03/29/2021 13:49 Pathologist Performed at: -[facility] Dept. of Pathology, [place], [place] This intraoperative consultation should be interpreted [...] Rosario MD 03/29/2021 Thoracic Surgery Service Pager [phone] * Debbie Pride RN - 03/29/2021 5:39 [...] STEVE Noguera 03/29/2021 Thoracic Surgery Service Pager [phone] documented in this encounter Nursing Notes * [...] MEDICARE Payor: AAR MANAGED MEDICARE / [facility]: [facility] COM[facility]TE / Product Type: *No Producttype* / Secondary Insurance: N/A Prescription Coverage: YES Preferred Pharmacy: No Pharmacies Listed This plan was formulated with input from patient and team. All are in agreement with plan. Initial IMM given: 03/30/21 11:18 AM OCM RS to provide DC IMM R. (Jose Manuel) CHRISTINA Salinas RN/CM - Cellphone: [phone] Pager: [phone] Covering Service RN/CM * Initial Assessments - [...] SO, would be surrogate decision maker per [place] surrogate decision making law. (Only good for 180 days) Any patient receiving care at [facility] must abide by [place] law. The hierarchy for surrogate decision making [...] (i) The agent with financial power of employment attorney or a conservator appointed in accordance [...] Current DME: none Home Address confirmed as: [address] [place] [address] Social & Family Supports: All names listed below confirmed with patient as current and correct Extended Emergency Contact Information Primary Emergency Contact: SHAY PARISH Address: [address] [place] [address] of [facility] Mobile Relation: Life Partner Secondary Emergency [...] removed before discharge Health/Prescription Coverage: Primary Insurance: [employer] MANAGED MEDICARE Payor: [employer] MANAGED MEDICARE / Plan: [facility] MANA[facility]IC[facility] COMPLETE / Product Type: *No Producttype* / Secondary Insurance: N/A Prescription Coverage: Yes Preferred Pharmacy: No Pharmacies Listed Patient reports he uses [facility], [place], [place] Status: Patient is a : No Primary Care Provider: Tami Olivia [phone] Patient/Caregiver Goals of Treatment: 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 PHONE: [phone] FAX: [phone] Transportation: no concerns Transportation Anticipated: family or [...] Reyes RN CM(remote) Melania Salinas RN CM [phone] * Brief Op Note - Say Mo MD - 03/29/2021 4:35 PM EST Brief Operative Note Patient Name: Rajan Marquez : [id number] MR#: [id number] Case Date: 03/29/2021 Surgeon: Surgeon(s) and Role: * Gilmer Foster MD - Primary * Renu Tan PA - Physician Carry In Worker * Say Mo MD - Resident Preoperative [...] SPECIMEN TO PATHOLOGY Freeze mass, not margin 24297 left upper lobe lung mass left upper lobe wedge excision YES, Please perform frozen section 03/29/2021 1:18 PM Number of tissue samples (in container) 1 Time specimen removed from patient: 1:18 PM PATHOLOGY ORDER UPDATE [id number] 03/29/2021 1:29 PM Additional information: Additional Info Enter requested changes: Fragment of tumor marked with stitch eD-H Order Id number [id number] SPECIMEN TO PATHOLOGY 31566 left upper lobe lung mass left upper lobectomy resection 03/29/2021 3:39 PM Number of tissue samples (in container) 1 Time specimen removed from patient: 3:36 PM SPECIMEN TO PATHOLOGY 62533 left upper lobe lung mass AP Window [...] Foster MD - 03/29/2021 1:01 PM EST [facility] Operative Note Patient Name: Rajan Marquez : [id number] MR#: [id number] Case Date: 03/29/2021 Surgeon: Surgeon(s) and Role: * Gilmer Foster MD - Primary * Renu Tan PA - Physician Carry In Worker * Say Mo MD - Resident Preoperative [...] SPECIMEN TO PATHOLOGY Freeze mass, not margin 24076 left upper lobe lung mass left upper lobe wedge excision YES, Please perform frozen section 03/29/2021 1:18 PM Number of tissue samples (in container) 1 Time specimen removed from patient: 1:18 PM PATHOLOGY ORDER UPDATE [id number] 03/29/2021 1:29 PM Additional information: Additional Info Enter requested changes: Fragment of tumor marked with stitch eD-H Order Id number [id number] SPECIMEN TO PATHOLOGY [id number] left upper lobe lung mass left upper lobectomy resection 03/29/2021 3:39 PM Number of tissue samples (in container) 1 Time specimen removed from patient: 3:36 PM SPECIMEN TO PATHOLOGY 84211 left upper lobe lung mass AP Window lymph node excision 03/29/2021 3:55 PM Number of tissue samples (in container) 1 Time specimen removed from patient: 3:54 PM Drains: 28 Algerian chest tube, left Surgical Closure: Primary Closure [...] adequate. The aorticopulmonary window was explored and billing representative lymph nodes were resected. After assessing each port site for hemostasis, a 28 Algerian chest tube was placed through the camera [...] 10:40 AM EST Office Visit Cardiology at [address] [phone] Chrissy Zepeda APRN [facility] [place] [address] Scheduled Procedures Name Priority Associated Diagnoses Date/Ti [...] Agent &/ Steroid Intercostal Nerve Single Level (54247) 03/29/2021 12:08 PM EST Mass of upper lobe of left lung Thoracoscopy With Mediastinal And Regional Lymphadenectomy 03/29/2021 12:08 PM EST Mass of upper lobe of left lung Bronchoscopy, Diagnostic (13715) 03/29/2021 12:08 PM EST Mass of upper lobe of left lung Thoracoscopy Surg Lobectomy (64256) 03/29/2021 12:08 PM EST Mass of upper [...] who have questions please contact the health care management coordinator that requested your imaging first. ? Electronically signed by: Savanna Lyles MD, [facility] ([phone]), at 04/17/2021 10:54 AM Narrative 04/17/2021 10:54 [...] patients who have questions please contactthe health care management coordinator that requested your imaging first. Electronically signed by: Savanna Lyles MD, [facility]([phone]), at 04/17/2021 10:54 AM Gilmer Foster MD [...] who have questions please contact the health care management coordinator that requested your imaging first. ? Electronically signed by: Howie Braxton [facility] ([phone]), at 04/01/2021 2:47 PM Narrative 04/01/2021 2:47 [...] patients who have questions please contactthe health care management coordinator that requested your imaging first. Electronically signed by: Howie Braxton [facility]([phone]), at 04/01/2021 2:47 PM Gilmer Foster MD IMG DX ORDERABLE S * (ABNORMAL) Differential, Automated (04/01/2021 3:59 AM EST) Neutrophil % 74.5 % [facility] Neutrophil Absolute 7.27(H) 1.70 - 6.10 x10(3)/ L [facility] Lymph % 14.3 % [facility] Lymphocytes Abs 1.4 0.9 - 3.2 x10(3)/ L [facility] Monocyte % 9.1 % [facility] Monocyte Abs 0.9 0.3 - 0.9 x10(3)/[facility] Eos % 1.4 % [facility] Eosinophils Abs 0.1 0.0 - 0.4 x10(3)/[facility] Basophil % 0.3 % [facility] Baso Absolute 0.0 0.0 - 0.1 x10(3)/[facility] Immature Gran % 0.40 % [...] ORDERABLE S [facility] [place] [address] * (ABNORMAL) Hemogram (04/01/2021 3:59 AM EST) [...] HOSPITAL LABORATORY Platelet 176 145 - 357 x10(3)/[facility] RDW Standard Deviation 44.7 36.0 - 45.0 [facility] RDW coefficient of variation 13.2 11.4 - 13.8 % [facility] Mean Platelet Volume 10.1 7.6 - 12.9 [facility] NRBC% auto 0.0 % [facility] NRBC Absolute 0.000 0.000 - 0.000 x10(3)/[facility] Blood 04/01/2021 3:59 AM EST 04/01/2021 4:11 AM EST Narrative Resulting Agency Comment Spec In Lab Lacy Rosario MD HEMATOLOGY ORDERABLE S [facility] [place] [address] * Phosphorus (04/01/2021 3:59 AM EST) Phosphorus 3.2 2.5 - 4.5 mg/dL [facility] Blood 04/01/2021 3:59 AM EST 04/01/2021 4:11 AM EST Narrative Resulting Agency Comment Spec In Lab Gilmer Foster MD CHEMISTRY ORDERA BLES [facility] [place] [address] * Magnesium (04/01/2021 3:59 AM EST) Magnesium 0.85 0.69 - 1.07 mmol/L [facility] Blood 04/01/2021 3:59 AM EST 04/01/2021 4:11 AM EST Narrative Resulting Agency Comment Spec In Lab Gilmer Foster MD CHEMISTRY ORDERA BLES Performing Organization Address [facility]/ZIP Co de Phone Number [facility] [place] [address] * (ABNORMAL) Basic Metabolic Panel (non-fasting) (04/01/2021 [...] DAINA JOSIE [facility] [place] [address] * XR Chest PA & Lateral (Generic) [...] who have questions please contact the health care management coordinator that requested your imaging first. ? Electronically signed by: Jose Aaron MD, [facility] ([phone]), at 03/31/2021 4:30 PM Narrative 03/31/2021 4:30 [...] patients who have questions please contactthe health care management coordinator that requested your imaging first. Electronically signed by: Jose Aaron MD, [facility]([phone]), at 03/31/2021 4:30 PM Loreta Xander Casillas, [employer] IMG DX ORDERABL ES * XR Chest [...] who have questions please contact the health care management coordinator that requested your imaging first. ? Electronically signed by: Savanah Suazo MD, [facility] ([phone]), at 03/31/2021 11:31 AM Narrative 03/31/2021 11:31 [...] patients who have questions please contactthe health care management coordinator that requested your imaging first. Gilmer Foster MD IMG DX ORDERABLE S * (ABNORMAL) Differential, Automated (03/31/2021 4:08 AM EST) Neutrophil % 71.6 % [facility] Neutrophil Absolute 7.59(H) 1.70 - 6.10 x10(3)/ L [facility] Lymph % 18.1 % [facility] Lymphocytes Abs 1.9 0.9 - 3.2 x10(3)/ L [facility] Monocyte % 8.7 % [facility] Monocyte Abs 0.9 0.3 - 0.9 x10(3)/ L [facility] Eos % 0.6 % [facility] Eosinophils Abs 0.1 0.0 - 0.4 x10(3)/[facility] Basophil % 0.5 % [facility] Baso Absolute 0.0 0.0 - 0.1 x10(3)/[facility] Immature Gran % 0.50 % [...] ORDERABLE S [facility] [place] [address] * (ABNORMAL) Hemogram (03/31/2021 4:08 AM EST) [facility] White Blood Cell 10.6(H) 4.0 - 9.5 x10(3)/[facility] Red Blood Cell 3.99(L) 4.58 [...] [facility] NRBC% auto 0.0 % [facility] NRBC Absolute 0.000 0.000 - 0.000 x10(3)/mc L [facility] Blood 03/31/2021 4:08 AM EST 03/31/2021 4:16 AM EST Narrative Resulting Agency Comment Spec In Lab Lacy Rosario MD HEMATOLOGY ORDERABLE S Performing Organization Address City/[facility]/ZIP Co de Phone Number [facility] [place] [address] * Phosphorus (03/31/2021 4:08 AM EST) Phosphorus 3.2 2.5 - 4.5 mg/dL [facility] Blood 03/31/2021 4:08 AM EST 03/31/2021 4:16 AM EST Narrative Resulting Agency Comment Spec In Lab Gilmer Foster MD CHEMISTRY ORDERA BLES [facility] [place] [address] * Magnesium (03/31/2021 4:08 AM EST) Magnesium 0.86 0.69 - 1.07 mmol/L [facility] Blood 03/31/2021 4:08 AM EST 03/31/2021 4:16 AM EST Narrative Resulting Agency Comment Spec In Lab Gilmer Foster MD CHEMISTRY ORDERA JOSIE [facility] [place] [address] * (ABNORMAL) Basic Metabolic Panel (non-fasting) (03/31/2021 4:08 AM EST) Pathologist [facility] Glucose 114 65 - 199 mg/dL [facility] [...] ORDERA BLES [facility] [place] [address] * (ABNORMAL) XR Chest PA & Lateral [...] who have questions please contact the health care management coordinator that requested your imaging first. ? Electronically signed by: Sara Aaron MD, [facility] ([phone]), at 03/30/2021 1:18 PM Narrative 03/30/2021 1:18 [...] patients who have questions please contactthe health care management coordinator that requested your imaging first. Electronically signed by: Sara Aaron MD, [facility]([phone]), at 03/30/2021 1:18 PM Gilmer Foster MD IMG DX ORDERABLE S * (ABNORMAL) Differential, Automated (03/30/2021 4:04 AM EST) Neutrophil % 86.1 % [facility] Neutrophil Absolute 13.63(H) 1.70 - 6.10 x10(3)/mc L [facility] Lymph % 7.9 % [facility] Lymphocytes Abs 1.2 0.9 - 3.2 x10(3)/mc L [facility] Monocyte % 5.6 % [facility] Monocyte Abs 0.9 0.3 - 0.9 x10(3)/[facility] Eos % 0.0 % [facility] Eosinophils Abs 0.0 0.0 - 0.4 x10(3)/[facility] Basophil % 0.1 % [facility] Baso Absolute 0.0 0.0 - 0.1 x10(3)/[facility] Immature Gran % 0.30 % [facility] Comment: Immature granulocytes(IG's)percentage and absolute count will include metamyelocytes, myelocytes, and promyelocytes. Blood smears from CBCs yielding IG's will be scanned manually for concordance. If this scan disagrees with the automated IG or if promyelocytes are noted, a manual differential will be performed. Immature Gran Absolute 0.05(H) 0.00 - 0.04 x10(3)/[facility] Blood 03/30/2021 4:04 AM EST 03/30/2021 4:14 AM EST Narrative Resulting Agency Comment Spec In Lab Lacy Rosario MD HEMATOLOGY ORDERABLE S [facility] [place] [address] * (ABNORMAL) Hemogram (03/30/2021 4:04 AM EST) White Blood Cell 15.8(H) 4.0 - 9.5 x10(3)/[facility] Red Blood Cell 4.20(L) 4.58 - 5.54 x10(6)/[facility] Hemoglobin 13.1(L) 13.7 - 16.5 [...] RDW Standard Deviation 41.9 36.0 - 45.0 [facility] RDW coefficient of variation 12.9 11.4 - 13.8 % [facility] Mean Platelet Volume 10.3 7.6 - 12.9 fL [facility] NRBC% auto 0.0 % [facility] NRBC Absolute 0.000 0.000 - 0.000 x10(3)/mc L [facility] Blood 03/30/2021 4:04 AM EST 03/30/2021 4:14 AM EST Narrative Resulting Agency Comment Spec In Lab Lacy Rosario MD HEMATOLOGY ORDERABLE S Performing Organization Address City/[facility]/ZIP Co de Phone Number [facility] [place] [address] * Phosphorus (03/30/2021 4:04 AM EST) Phosphorus 3.1 2.5 - 4.5 mg/dL [facility] Blood 03/30/2021 4:04 AM EST 03/30/2021 4:14 AM EST Narrative Resulting Agency Comment Spec In Lab Gilmer Foster MD CHEMISTRY ORDERA BLES Performing Organization Address City/[facility]/ZIP Co de Phone Number [facility] [place] [address] * (ABNORMAL) Magnesium (03/30/2021 4:04 AM EST) Magnesium 0.67(L) 0.69 - 1.07 mmol/L [facility] Blood 03/30/2021 4:04 AM EST 03/30/2021 4:14 AM EST Narrative Resulting Agency Comment Spec In Lab Gilmer Foster MD CHEMISTRY ORDERA BLES [facility] [place] [address] * Basic Metabolic Panel (non-fasting) (03/30/2021 4:04 [...] GALINDO [facility] [place] [address] * XR Chest One View (03/29/2021 5:35 [...] who have questions please contact the health care management coordinator that requested your imaging first. ? Electronically signed by: Casa Sanchez MD, [facility] ([phone]), at 03/29/2021 5:37 PM Narrative 03/29/2021 5:37 [...] patients who have questions please contactthe health care management coordinator that requested your imaging first. Electronically signed by: Casa Sanchez MD, [facility]([phone]), at 03/29/2021 5:37 PM Gilmer Foster MD IMG DX ORDERABLE S * Specimen to Pathology (03/29/2021 3:55 PM EST) AP Specimen 03/29/2021 3:55 PM EST 03/29/2021 3:55 PM EST Narrative [facility] - 03/29/2021 3:55 PM EST Specimen requisition ordered. ??Separate Pathology report to follow Gilmer Foster MD PATHOLOGY/CYTOLO GY ORDERABLES [facility] [place] [address] * Specimen to Pathology (03/29/2021 3:39 PM EST) AP Specimen 03/29/2021 3:39 PM EST 03/29/2021 3:39 PM EST Narrative [facility] - 03/29/2021 3:39 PM EST Specimen requisition ordered. ??Separate Pathology report to follow Gilmer Foster MD PATHOLOGY/CYTOLO GY ORDERABLES [facility] [place] [address] * Solid Tumor NGS Panel (03/29/2021 1:18 PM EST) Tissue 03/29/2021 1:18 PM EST 04/10/2021 2:38 PM EST Narrative Resulting Agency Comment Spec In Lab Gilmer Foster MD PATHOLOGY/CYTOLO GY ORDERABLES Performing Organization Address [facility] Co de Phone Number [facility] [place] [address] * Surgical Pathology Report (03/29/2021 1:18 PM EST) Final Diagnosis [id number] ? Location: [facility]; [address] The signing pathologist has (i) examined [...] The assay was performed according to the body specialist's instructions using Anti-PD-L1 (22C3, pharmDX) antibody. Electronically signed by: ?Eugene FLORES PhD, Alysia Verified: ??04/12/2021 8:54 ?? Pathologist Performed at: ??-[facility], [place], [place] ?Surgical Pathology DIAGNOSIS A) Left upper [...] Soriano Verified: ??04/09/2021 11:33 ??Pathologist Performed at: ??-[facility], [place], [place] SYNOPTIC Specimen ? Procedure: ??Lobectomy ? [...] These foci are ?favored to represent entrapped mekoryuk mucin cells; however, the possibility ?of focal glandular carcinoma differentiation cannot be entirely excluded. Tumor Block(s): ??B7 Normal Block(s): ??C1 [facility] January 2021 Release DISCUSSION Tumor somatic mutation testing and PD-L1 IHC testing have been ordered and will be reported separately. ADDITIONAL STUDIES Whole slide scan: billing representative slide(s) EVG stains were evaluated for [...] ?Negative B5 ? p40 ?Positive B5 ? [id number] ? Positive B6 ? [id number] ? Positive B8 ? p40 ?Positive B8 [...] is submitted for frozen section: FS 1-lesion. Scheduler Conveyor sections in 3 cassettes as follows: ?A1: ??FS1 frozen section remnant/lesion ?A2: ??Closest staple line (including possible residual lesion) ?A3: ??Scheduler Conveyor lung parenchyma adjacent to lesion B - [...] of friable pleural disruption is inked blue Scheduler Conveyor sections in 14 cassettes as follows: ?B1: ??Bronchial margin, en face ?B2: ??Vascular margins, en face ?B3: ??Parenchymal staple margin ?B4: ??Prior wedge staple line ?B5-B7: ??Mass in relation to disrupted pleura (inked blue) ?B8-B9: ??Mass with adjacent uninvolved lung parenchyma . SPECIMEN PROCESSING ?B10: ??Scheduler Conveyor uninvolved lung parenchyma ?B11: ??Single intact lobar [...] Swann Verified: ??03/29/2021 13:49 ??Pathologist Performed at: ??-[facility], [place], [place] This intraoperative consultation should be interpreted [...] GY ORDERABLES [facility] [place] [address] * Specimen to Pathology (03/29/2021 1:18 PM EST) AP Specimen 03/29/2021 1:18 PM EST 03/29/2021 1:18 PM EST Narrative [facility] - 03/29/2021 1:18 PM EST Specimen requisition ordered. ??Separate Pathology report to follow Gilmer Foster MD PATHOLOGY/CYTOLO GY ORDERABLES [facility] [place] [address] * POCT Glucose (03/29/2021 12:02 PM EST) Glucose, POC 89 65 - 199 mg/dL [facility] Comment: Supplemental ranges: <140 mg/dL before meals <180 mg/dL all other times of the day Blood 03/29/2021 12:0 2 PM EST 03/29/2021 12:02 PM EST Gilmer Foster MD POINT OF CARE TE ST ORDERABLES Performing Organization Address [facility] Co de Phone Number [facility] [place] [address] documented in this encounter Visit Diagnoses Diagnosis [...] Unit) 0000 (Rate/Dose Verify - Provider: Vanessa aSlcedo RN)0100 (Rate/Dose Verify - Provider: Vanessa Salcedo [...] patch documented in this encounter Care Teams Press Puller Relationship Specialty Start Date End Date Tami Olivia [address] [place] [address] PCP - General Family Medicine 12/30/20 documented as of this encounter
--- OUTSIDE RECORDS SUMMARY | 2023-12-31 22:49 | XMS_ITS | Encounter Summary ---
Author Organization [facility] Address [facility] [place] [address] Care Team Providers Care Storage Worker Name Role Phone Tami Olivia Primary Care Provider [phone] Reason for Visit * Auth/Cert Specialty Diagnoses / Procedures Referred By Bert gautam Referred To Contact Diagnoses Mass of upper lobe of left lung left upper lobe lung mass Procedures PRO THORACOSCOPY SURG LOBECTOMY PRO BRONCHOSCOPY, DIAGNOSTIC @THORACOSCOPY,SURGICAL,W\LOBECTOMY, TOTAL OR SEGMENTAL (WRVU 24.64) BRONCHOSCOPY, DIAGNOSTIC (WRVU 2.78) Referral ID Status Reason Start Date Expiration Date Visits Re quested Visits Authorized [id number] 1 1 Encounter Details Date Type Department Care Team (Late st Contact Info) Description 03/29/2021 12:09 PM EST Anesthesia [place] [address] Anali Dubon MD [facility] [place] [address] Anesthesia Record Procedure Summary Procedure Name Responsible [...] 0802; median cubital vein (antecubital fossa), left; tjom-hrv-yqudik catheter system; Anatomical Landmarks; 20 gauge; Rosy; [...] 1341; metacarpal vein (top of hand), left; utea-rfb-dizzoi catheter system; Anatomical Landmarks; 18 gauge; Kerry [...] Procedure Summary Date: 03/29/21 Room / Location: [facility] OR [address] [place] [address] MAIN OR Anesthesia Start: 1209 Anesthesia Stop: [...] All Anesthesia Providers: Anesthesiologist: Anali Dubon MD Biomedical Engineering Aide: Sommer Payne MD Vitals Value Taken Time BP 123/56 03/29/21 1646 Temp 36.3 ??C (97.3 ??F) 03/29/21 1646 Pulse 73 03/29/21 1656 Resp 17 03/29/21 1656 SpO2 96 % 03/29/21 1656 Pain Level Vitals shown include unvalidated device data. Patient Location: PACU/[facility] Level of Consciousness: Awake and Alert Pain [...] AM EST Office Visit Cardiology at [address] [address] Chrissy Zepeda APRN [facility] [place] [address] Scheduled Procedures Name Priority Associated Diagnoses Date/Ti [...] mg documented in this encounter Care Teams Storage Worker Relationship Specialty Start Date End Date Tami Olivia [address] [place] [address] PCP - General Family Medicine 12/30/20 documented as of this encounter
--- OUTSIDE RECORDS SUMMARY | 2023-12-31 22:49 | XMS_ITS | Encounter Summary ---
Author Organization [facility] Address [facility] [place] [address] Care Team Providers Care Magazine Editor Name Role Phone Tami Olivia Primary Care Provider [phone] Reason for Visit * Auth/Cert Specialty Diagnoses / Procedures Referred By Bert gautam Referred To Contact Diagnoses Mass of upper lobe of left lung left upper lobe lung mass Procedures PRO THORACOSCOPY SURG LOBECTOMY PRO BRONCHOSCOPY, DIAGNOSTIC @THORACOSCOPY,SURGICAL,W\LOBECTOMY, TOTAL OR SEGMENTAL (WRVU 24.64) BRONCHOSCOPY, DIAGNOSTIC (WRVU 2.78) Referral ID Status Reason Start Date Expiration Date Visits Re quested Visits Authorized [id number] 1 1 Encounter Details Date Type Department Care Team (Late st Contact Info) Description 03/26/2021 11:30 AM EST Public [place] [phone] COVID-19 ruled out Social History Tobacco Use [...] AM EST Office Visit Cardiology at [address] [phone] Chrissy Zepeda, MORTEZA [facility] [address] Scheduled Procedures Name Priority Associated Diagnoses Date/Ti [...] EST) SARS-CoV-2 RNA Not Detected Not Detected [facility] Comment: This result should [...] diagnosis of COVID-19 is performed using the Prolifynity m SARS-CoV-2 Assay as authorized by the FDA Emergency Use Authorization (EUA). This EUA assay is intended for In-vitro Diagnostic (IVD) use with respiratory specimens such as nasopharyngeal swabs collected from individuals during the acute phase of infection. This assay is performed based on the instructions for use provided by [employer] and additional guidance provided by CDC and FDA. Testing is performed in the Clinical Genomics and [facility] Laboratory within the Department of Pathology and Laboratory Medicine at [facility], certified under the Clinical Laboratory Improvement Amendments [...] fact sheets at the following FDA website: https://www.fda.gov/medical-devices/vyxlgvmrqna-ynkdfgf-8245-zodfl-32-rmgmtopra- use-a gkqbrvuvuexbz-pabafpa-dbttfab/opxjh-xbmrmuemoyw-sudp SARS-CoV-2 RNA Source TRUCK WASHER Swab [facility] Nasopharyngeal Swab 03/26/19 2:51 PM EST 03/26/2021 2:51 PM EST Comment:Symptoms->Asymptomat ic Narrative Resulting Agency Comment Spec In Lab Gilmer Gutiérrez MD MOLECULAR CARMEN GALINDO [facility] [place] [address] documented in this encounter Visit Diagnoses Diagnosis COVID-19 ruled out documented in this encounter Care Teams Magazine Editor Relationship Specialty Start Date End Date Tami Olivia [address] [place] [address] PCP - General Family Medicine 12/30/20 documented as of this encounter
--- OUTSIDE RECORDS SUMMARY | 2023-12-31 22:49 | XMS_ITS | Encounter Summary ---
Author Organization [facility] Address [facility] [place] [address] Care Team Providers Care Document Specialist Name Role Phone Tami Olivia Primary Care Provider [phone] Encounter Details Date Type Department Care Team (Late st Contact Info) Description 03/09/2021 Telephone Public Health at [facility] [place] [phone] Tamika [place] Social History Tobacco Use Types [...] ASK: TRAVEL ???Have you travelled outside of [place] ([place], [place], [place], [place], [place], [place]) in the past 14 days??? 2. ASK: [...] Transfer patient to the Covid-19 Hotline Number ([phone]) for further instructions. If 'No' to all [...] Ordering provider: Dr. Gilmer Gutiérrez Testing Facility: [facility] Date of Testin03/26/2021 Time of Testin:30am Symptoms: No Give directions to testing facility. All passengers in the vehicle MUST wear a mask. Leave dogs/pets at home or have them crated/behind a net. * Telephone Encounter - Sayda Ortega - 03/09/2021 3:16 PM EST 03/09 - Rajan will check [facility] to see if he can have COVID [...] AM EST Office Visit Cardiology at [address] [place] [address] Chrissy Zepeda APRN [facility] [place] [address] Scheduled Procedures Name Priority Associated Diagnoses Date/Ti me CARDIOVERSION-ELECTIVE (WRVU 2) atrial flutter ELECTROPHYSIOLOGY PROCEDURE Persistent atrial fibrillation CARDIOVERSION-ELECTIVE (WRVU 2) persistent atrial fibrillation TRANSESOPHAGEAL ECHOCARDIOGR AM (WRVU 2.3) persistent atrial fibrillation documented as of this encounter Visit Diagnoses Not on filedocumented in this encounter Care Teams Document Specialist Relationship Specialty Start Date End Date Tami Olivia [address] [place] [address] PCP - General Family Medicine 12/30/20 documented as of this encounter
--- OUTSIDE RECORDS SUMMARY | 2023-12-31 22:49 | XMS_ITS | Encounter Summary ---
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 Procedures CT Chest w Contrast Gilmer Gutiérrez MD [facility] DR [place]AC[place] [address] [facility] [place] [address] Referral ID Status Reason Start Date Expiration Date V isits Requested Visits Authorized [id number] Closed Specialty Service Requested 04/17/2021 10/15/2022 1 1 Encounter Details Date Type Department Care Team (Late st Contact Info) Description 04/17/2021 11:30 AM EST Office [place] [phone] Gilmer Gutiérrez MD [facility] [place]ACIC [place] [address] Squamous cell carcinoma of left lung; Status [...] Marquez is a 70-year-old man with a 650-gmmv-otnq smoking history referred to me for a [...] AM EST Office Visit Cardiology at [address] [phone] Chrissy Zepeda, MORTEZA [facility] [place] [address] Scheduled Procedures Name Priority Associated Diagnoses Date/Ti [...] questions please contact the health child care team lead that requested your imaging first. ? Electronically signed by: Marcus Edwards MD, [facility] ([phone]), at 10/30/2021 4:47 PM Narrative 10/30/2021 4:47 [...] EDT) Creatinine 1.01 0.80 - 1.50 mg/dL [facility] Est Glomerular Filtration Rate 80 >=60 mL/min/1. 73 m?? [facility] [...] Lab Gilmer Gutiérrez MD CHEMISTRY ORDERA [place]ES [place] [address] documented in this encounter Visit Diagnoses Diagnosis 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 Other postprocedural status 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 Other postprocedural status documented in this encounter Care Teams Social Human Services Assistants Relationship Specialty Start Date End Date Tami Olivia [address] [place] [address] PCP - General Family Medicine 12/30/20 documented as of this encounter
--- OUTSIDE RECORDS SUMMARY | 2023-12-31 22:49 | XMS_ITS | Encounter Summary ---
Author Organization [facility] Address [facility] [place] [address] Care Team Providers Care Record Changer Tester Name Role Phone Tami Olivia Primary Care Provider [phone] Reason for Referral * Consultation (Urgent) - Closed Specialty Diagnoses / Procedures Referred By Bert gautam Referred To Contact Otolaryngology Diagnoses Pharyngeal lesion PET avid left lateral pharyngeal wall uptake, please eval Patient is scheduled for Left Upper Lobe lung Lobectomy on 03/29/2021, Gilmer Gutiérrez MD [facility] [place] [address] [facility] Otolaryngology [address] [place] [phone] Referral ID Status Reason Start Date Expiration Date V isits Requested Visits Authorized [id number] Closed Consult, Test & Treat 02/13/2021 02/13/2022 1 1 Encounter Details Date Type Department Care Team (Late st Contact Info) Description 02/13/2021 2:15 PM EST Office [place] [address] Gilmer Gutiérrez MD [facility] [place] [address] Mass of upper lobe of [...] and drinking. Your procedure will occur in day care supervisor area 4W. Please park in the parking garage and you will come into the [facility] on level 4. Go straight, all the way to the end of the soto, that is Same day surgery wooden desk also day care supervisor area 4W. Bronchoscopy is the term [...] will receive a phone call from the [facility] Hotline [phone] prior to your surgery to schedule you an appointment. Please call the [facility] Hotline number with any questions or concerns. [...] Follow Up Note MD Matt Fischer PA-C [place] [address] FAX: Chief Complaint: Follow-up for spiculated 2.8 [...] and establish a treatment plan. ?? Overall, Rjaan Marquez reports that he is feeling well. [...] Plan: 1. F/u on results of today's MI cardiac stress test 2. PSA for further [...] Dr. Gutiérrez. STEVE Arriaga 02/13/21 Thoracic Surgery [facility] * Gilmer Gutiérrez MD - 02/13/2021 2:15 PM EST Thoracic surgery follow-up visit I saw and examined Mr. Marquez with STEVE Brooks, and agree with her findings, assessment and plan. In brief: Chief complaint: Spiculated left upper lobe lung nodule History of present illness: Mr. Marquez is a 70-year-old man with a 814-gnii-wpei smoking history referred initially for a 2.8 [...] the prostate lesion, and referral to an supervisor mirror fabrication for direct examination of the pharynx. Pending [...] AM EST Office Visit Cardiology at [address] [place] [address] Chrissy Zepeda APRN [facility] [place] [address] Scheduled Procedures Name Priority Associated Diagnoses Date/Ti [...] 3:56 PM EST) Neutrophil % 68.8 % [facility] Neutrophil Absolute 6.59(H) 1.70 - 6.10 x10(3)/[facility] Lymph % 23.4 % [facility] Lymphocytes Abs 2.2 0.9 - 3.2 x10(3)/[facility] Monocyte % 6.8 % [facility] Monocyte Abs 0.6 0.3 - 0.9 x10(3)/[facility] Eos % 0.3 % [facility] Eosinophils Abs 0.0 0.0 - 0.4 x10(3)/[facility] Basophil % 0.5 % [facility] Baso Absolute 0.0 0.0 - 0.1 x10(3)/[facility] Immature Gran % 0.20 % [facility] Comment: Immature granulocytes(IG's)percentage and absolute count will include metamyelocytes, myelocytes, and promyelocytes. Blood smears from CBCs yielding IG's will be scanned manually for concordance. If this scan disagrees with the automated IG or if promyelocytes are noted, a manual differential will be performed. Immature Gran Absolute 0.02 0.00 - 0.04 x10(3)/[facility] Blood 02/13/2021 3:56 PM EST 02/13/2021 4:15 PM EST Narrative Resulting Agency Comment Spec In Lab Gilmer Gutiérrez MD HEMATOLOGY ORDER PHILOMENA [facility] [place] [address] * (ABNORMAL) Hemogram (02/13/2021 3:56 PM EST) White Blood Cell 9.6(H) 4.0 - 9.5 x10(3)/[facility] Red Blood Cell 4.63 4.58 - 5.54 x10(6)/[facility] Hemoglobin 14.5 13.7 - 16.5 g/dL [...] Platelet 202 145 - 357 x10(3)/mc L [facility] RDW Standard Deviation 43.0 36.0 - 45.0 [facility] RDW coefficient of variation 13.1 11.4 - 13.8 % [facility] Mean Platelet Volume 10.3 7.6 - 12.9 [facility] NRBC% auto 0.0 % [facility] NRBC Absolute 0.000 0.000 - 0.000 x10(3)/mc L [facility] Blood 02/13/2021 3:56 PM EST 02/13/2021 4:15 PM EST Narrative Resulting Agency Comment Spec In Lab Gilmer Gutiérrez MD HEMATOLOGY ORDER PHILOMENA Performing Organization Address [facility] Co de Phone Number [facility] [place] [address] * PSA (Ultrasensitive) (02/13/2021 3:56 PM EST) [...] MD CHEMISTRY ORDERA BLES Performing Organization Address City/[facility]/ZIP Co de Phone Number [facility] [place] [address] * (ABNORMAL) Comprehensive metabolic panel (non-fasting) (02/13/2021 3:56 PM EST) Glucose 81 65 - 199 mg/dL [facility] [...] CHEMISTRY ORDERA BLES [facility] [place] [address] * EKG 12 Lead (02/13/2021 3:15 PM EST) Ventricular rate 73 BPM MUSE SYSTEM Atrial Rate 73 BPM MUSE SYSTEM P-R Interval 170 ms MUSE SYSTEM QRS Duration 104 ms MUSE SYSTEM Q-T Interval 390 ms MUSE SYSTEM QTC Calculated (Bezet) 429 ms MUSE SYSTEM Calculated P [place] 83 degrees MUSE SYSTEM Calculated R [place] 88 degrees MUSE SYSTEM Calculated T [place] 57 degrees MUSE SYSTEM INTERPRETATION Sinus rhythm with Premature atrial complexes Otherwise normal ECG When compared with ECG of 16-JAN-2021 14:36, No significant change was found Confirmed by MD Chaka, Srini Cottrell ([id number]) on 02/16/2021 9:29:07 AM MUSE SYSTEM 02/13/2021 3:15 PM EST 02/16/2021 9:29 AM EST Gilmer Gutiérrez MD ECG ORDERABLES Performing Organization Address [facility] Co de Phone Number MUSE SYSTEM documented in this encounter Visit Diagnoses Diagnosis Mass of upper lobe of left lung Prostate enlargement Hypertrophy of prostate without urinary obstruction and other lower urinary tract symptoms (LUTS) Pharyngeal lesion Unspecified disease of pharynx documented in this encounter Care Teams Record Changer Tester Relationship Specialty Start Date End Date Tami Olivia [address] [place] [address] PCP - General Family Medicine 12/30/20 documented as of this encounter
--- OUTSIDE RECORDS SUMMARY | 2023-12-31 22:50 | XMS_ITS | Encounter Summary ---
Author Organization Formerly [facility] Address [facility] [place] [address] Care Team Providers Care Stitch Rubber Name Role Phone SudhakarJacksonTami Primary Care Provider [phone] Reason for Visit * Diagnostic Test (Routine) - Specialty Diagnoses / Procedures Referred By Bert gautam Referred To Contact Radiology Diagnoses Mass of upper lobe of left lung Pre-operative cardiovascular examination, high risk surgery Procedures NM Exercise Stress and Rest Myocardial Perfusion Gilmer Gutiérrez MD [facility] [place] [address] [facility] [place] [address] Referral ID Status Reason Start Date Expiration Date Visits Requested Visits Authorized [id number] Specialty Service Requested 02/09/2021 03/26/2021 4 4 Encounter Details Date Type Department Care Team (Latest Contact Info) Description 02/13/2021 10:03 AM EST - 02/13/2021 12:55 PM [facility] Hospital En[place] [phone]érrez MD [facility] [place] [address] Discharge Disposition: Home Social History [...] AM EST Office Visit Cardiology at [address] [place] [address] Chrissy Zepeda, MORTEZA [facility] [address] Scheduled Procedures Name Priority Associated Diagnoses Date/Ti [...] questions please contact the health health care coordinator that requested your imaging first. ? Electronically signed by: DARIO GOLDSMITH MD, [facility] ([phone]), at 02/13/2021 3:29 PM Narrative 02/13/2021 3:29 [...] have questions please contactthe health health care coordinator that requested your imaging first. Electronically signed by: DARIO GOLDSMITH MD, [facility]([phone]), at 02/13/2021 3:29 PM Gilmer Gutiérrez MD [...] mCi documented in this encounter Care Teams Stitch Rubber Relationship Specialty Start Date End Date Tami Olivia [address] [place] [address] PCP - General Family Medicine 12/30/20 documented as of this encounter
--- OUTSIDE RECORDS SUMMARY | 2023-12-31 22:50 | XMS_ITS | Encounter Summary ---
Author Organization [facility] Address [address] [place] [address] Care Team Providers Care Transaction Coordinator Name Role Phone Tami Olivia Primary Care Provider [phone] Encounter Details Date Type Department Care Team (Late st Contact Info) Description 12/11/2021 Lab Requisition [facility] Pathology & Laboratory Medicine - [address] [address] Josephine Sotomayor MD [address] [facility], Level [address] [place] [phone] Pleural effusion, not elsewhere classified; Malignant neoplasm [...] clonal cell population. See comment. 2 10:12 [facility] Comment The cytospin from the tube is acellular and non-diagnotic. However, the flow study reveals adequately charter representative numbers of lymphocytes. The results of flow cytometry show no immunophenotypic evidence of involvement by a clonal lymphoproliferativ e. 2 10:12 [facility] Attestation By the signature below, the attending physician certifies that they have 1) personally conducted a gross and/or microscopic examination of the described specimen(s), and/or personally interpreted the results of laboratory testing of the described specimen(s), and 2) personally rendered or confirmed the above diagnosis. 2 10:12 [facility] at 1012 Clinical History 70 yo male with pleural effusion. 2 10:12 [facility] Description Morphology of a [...] lineage. There are no blasts. 2 10:12 [facility] Flow Markers CD10, CD19, CD20, CD3, CD4, CD45, CD5, CD8, [place], and Lambda 2 10:12 [facility] FDA Disclaimer This test was developed and its performance characteristics determined by the Department of Pathology and Laboratory Medicine, [place] It has not been cleared or [...] high complexity clinical laboratory testing. 2 10:12 [facility] Sample Analyzed Date and Time 12/12/2021 1115 2 10:12 [facility] Scanned Images 2 10:12 [facility] ZZUNK PLEURAL FLUID / Unknown 12/11/2021 11:00 EDT 12/12/2021 8:18 EDT Josephine Sotomayor MD PATHOLOGY ORDERABLES [facility] [address] [place] [address] documented in this encounter Visit Diagnoses Diagnosis Pleural effusion, not elsewhere classified Malignant neoplasm of unspecified part of left bronchus or lung (HCC-CMS) documented in this encounter Care Teams Transaction Coordinator Relationship Specialty Start Date End Date Tami Olivia [address] [place] [address] PCP - General 12/04/19 documented as of this encounter
--- OUTSIDE RECORDS SUMMARY | 2023-12-31 22:50 | XMS_ITS | Encounter Summary ---
Author Organization [facility] Address [address] [place] [address] Care Team Providers Care Technical Solutions Consultant Name Role Phone Tami Olivia Primary Care Provider [phone] Reason for Visit * Reason Onset Date Comments Other 08/12/2020 Encounter Details Date Type Department Care Team (Late st Contact Info) Description 08/12/2020 Telephone [facility] - [facility] Rheumatology [address] [place] [address] Mena Ng MD 130 [facility] [address] [place] [address] Other Social History Tobacco Use [...] documented as of this encounter Care Teams Technical Solutions Consultant Relationship Specialty Start Date End Date Tami Olivia [address] [place] [address] PCP - General 12/04/19 documented as of this encounter
--- OUTSIDE RECORDS SUMMARY | 2023-12-31 22:50 | XMS_ITS | Encounter Summary ---
Author Organization [facility] [place] [address] Care Team Providers Care Promotional Model Name Role Phone Unavailable Primary Care Provider Unavailabl e Encounter Details Date Type Department Care Team (Late st Contact Info) Description 09/18/2019 Ancillary Procedure Radiology Library at [facility] [place] [address] Kasie Marcus MD [address] [place] [address] [id number] Social History Tobacco Use Types Packs/Day Years [...] AM EST Office Visit Cardiology at [address] [place] [address] Chrissy Zepeda, FUR MACHINE OPERATOR [facility] [place] [address] Scheduled Procedures Name Priority Associated Diagnoses Date/Ti [...] FILM LIBRARY ORDERABLES Performing Organization Address City/State/[facility] Co de Phone Number BARBARA [place], [place] documented in this encounter Visit Diagnoses Not on filedocumented in this encounter
--- OUTSIDE RECORDS SUMMARY | 2023-12-31 22:50 | XMS_ITS | Encounter Summary ---
Author Organization [facility] Address [address] [place] [address] Care Team Providers Care Customer Solutions Representative Name Role Phone Tami Olivia Primary Care Provider [phone] Reason for Visit * Reason Comments Other Encounter Details Date Type Department Care Team (Late st Contact Info) Description 10/14/2021 Refill [facility] - [facility] Rheumatology [address] [place] [address] Mena Ng MD 130 [facility] [address] [place] [address] Other Social History Tobacco Use [...] documented as of this encounter Care Teams Customer Solutions Representative Relationship Specialty Start Date End Date Tami Olivia [address] [place] [address] PCP - General 12/04/19 documented as of this encounter
--- OUTSIDE RECORDS SUMMARY | 2023-12-31 22:50 | XMS_ITS | Encounter Summary ---
Author Organization [facility] Address [address] [place] [address] Care Team Providers Care Youth Services Librarian Name Role Phone Tami Olivia Primary Care Provider [phone] Encounter Details Date Type Department Care Team (Late st Contact Info) Description 06/25/[address] [facility] Pathology & Laboratory Medicine - [place] [address] [place] [address] Mandeep Licona, [address] [place] [address] Neoplasm of unspecified behavior of bone, soft [...] explore management options, if applicable. 06/26/2022 15:23 [facility] Final Diagnosis A. SKIN OF SCALP, LEFT ANTERIOR, SHAVE BIOPSIES: - Seborrheic keratosis, pigmented. 06/26/2022 15:23 [facility] Attestation By the signature below, the attending physician certifies that they have 1) personally conducted a gross and/or microscopic examination of the described specimen(s), and/or personally interpreted the results of laboratory testing of the described specimen(s), and 2) personally rendered or confirmed the above diagnosis. 06/26/2022 15:23 [facility] at 1523 Clinical History Clinical diagnosis code: D49.2 06/26/2022 15:23 [facility] Gross Description A. Received [...] Kelin Aleisha 06/26/2022 7:48 06/26/2022 15:23 EDT [facility] Performing Lab [facility] 06/26/2022 15:23 EDT [facility] Scanned Images 06/26/2022 15:23 EDT [facility] Tissue TISSUE SPECIMEN FROM SKIN / Unknown 06/22/2022 13:20 EDT 06/25/2022 21:37 EDT Mandeep Licona DO PATHOLOGY ORDER [place] [facility] [address] [place] [address] documented in this encounter Visit Diagnoses Diagnosis Neoplasm of unspecified behavior of bone, soft tissue, and skin documented in this encounter Care Teams Youth Services Librarian Relationship Specialty Start Date End Date Tami Olivia [address] [place] [address] PCP - General 12/04/19 documented as of this encounter
--- OUTSIDE RECORDS SUMMARY | 2023-12-31 22:50 | XMS_ITS | Encounter Summary ---
Author Organization [facility] Address [address] [place] [address] Care Team Providers Care Ui Application Developer Name Role Phone Tami Olivia Primary Care Provider [phone] Encounter Details Date Type Department Care Team (Late st Contact Info) Description 12/11/2021 Lab Requisition [facility] Pathology & Laboratory Medicine - [facility] [address] [place] [address] Outr Resulting Lab, Provider Social History Tobacco [...] 38 See Note mg/dL 12/11/2021 18:45 EDT [facility] Comment: Reference range unavailable. Clinical correlation required. This Fluid Glucose assay was developed and its performance characteristics determined by [facility]. ??It has not been cleared or approved by the [place] Food and Drug Administration. Fluid PLEURAL FLUID / Unknown 12/11/2021 11:00 EDT 12/11/2021 17:43 EDT Provider Outr Resulting Lab GEN LAB UNIT COLLECT ORDERABLES [facility] [address] [place] [address] documented in this encounter Visit Diagnoses Not on filedocumented in this encounter Care Teams Ui Application Developer Relationship Specialty Start Date End Date Tami Olivia [address] [place] [address] PCP - General 12/04/19 documented as of this encounter
--- OUTSIDE RECORDS SUMMARY | 2023-12-31 22:50 | XMS_ITS | Encounter Summary ---
Author Organization [facility] Address [address] [place] [address] Care Team Providers Care Industrial Sweeper Cleaner Name Role Phone Tami Olivia Primary Care Provider [phone] Encounter Details Date Type Department Care Team (Late st Contact Info) Description 09/27/2022 Lab Requisition [facility] Pathology & Laboratory Medicine - [facility] [address] [place] [address] Outr Resulting Lab, Provider Social History Tobacco [...] 54.6(L) 55.8 - 66.1 % 09/28/2022 13:53 [facility] Albumin g/dL 3.9 3.6 - 5.2 g/dL 09/28/2022 13:53 [facility] Alpha-1 % 5.1(H) 2.9 - 4.9 % 09/28/2022 13:53 [facility] Alpha-1 g/dL 0.40 0.15 - 0.40 g/dL 09/28/2022 13:53 [facility] Alpha-2 % 12.0(H) 7.1 - 11.8 % 09/28/2022 13:53 [facility] Alpha-2 g/dL 0.90 0.50 - 1.00 g/dL 09/28/2022 13:53 [facility] Beta % 13.3(H) 8.4 - 13.1 % 09/28/2022 13:53 [facility] Beta g/dL 1.00 0.60 - 1.20 g/dL 09/28/2022 13:53 [facility] Gamma % 15.0 11.1 - 18.8 % 09/28/2022 13:53 [facility] Gamma g/dL 1.10 0.60 - 1.60 g/dL 09/28/2022 13:53 EDT [facility] SPEP Comment No apparent monoclonal protein seen on serum electrophoresis 09/28/2022 13:53 EDT [facility] Comment:See scanned/suppleme ntary report. Total Protein 7.2 6.3 - 8.2 g/dL 09/28/2022 13:53 EDT [facility] Blood VENOUS BLOOD / Unknown 09/26/2022 12:30 EDT 09/27/2022 18:12 EDT Provider Outr Resulting Lab CHEMISTRY & BLOOD GAS ORDERABLES Performing Organization Address [facility] de Phone Number [facility] [address] [place] [address] * PROTEIN, TOTAL (09/26/2022 12:30 EDT) Blood VENOUS BLOOD / Unknown 09/26/2022 12:30 EDT 09/27/2022 18:12 EDT Provider Outr Resulting Lab CHEMISTRY & BLOOD GAS ORDERABLES Performing Organization Address [facility] Co de Phone Number [facility] [address] [place] [address] documented in this encounter Visit Diagnoses Not on filedocumented in this encounter Care Teams Industrial Sweeper Cleaner Relationship Specialty Start Date End Date Tami Olivia [address] [place] [address] PCP - General 12/04/19 documented as of this encounter
--- OUTSIDE RECORDS SUMMARY | 2023-12-31 22:50 | XMS_ITS | Encounter Summary ---
Author Organization [facility] Address [address] [place] [address] Care Team Providers Care Music Video Director Name Role Phone Tami Olivia Primary Care Provider [phone] Reason for Visit * Reason Comments Follow-up RS3PE syndrome, hand + joint pain - 1yr. Pt states feeling good as far as RA. Has had cancer, feeling very weak. New pharmacy-check? Encounter Details Date Type Department Care Team (Late st Contact Info) Description 04/20/2022 11:45 EST Office Visit [facility] Rheumatology [address] [place], [place] [id number] Mena Ng MD [address] [facility]- [address] [place] [address] RS3PE syndrome (Primary Dx); RS3PE [...] Mena Ng MD - 04/20/2022 1145 EST [facility] -[place]heumatology follow up Chief [...] Squamous Cell Carcinoma of the left lung -[facility] 03/2021-lobectomy -recurrent left pleural effusion. HPI Rajan Marquez is here in follow up . New diagnosis of squamous cell ca of lung in 02/2022 at [facility] Allergies include: Cat dander and Dog dander [...] 01/26/2022 added in this encounter Care Teams Music Video Director Relationship Specialty Start Date End Date Tami Olivia [address] [place] [address] PCP - General 12/04/19 documented as of this encounter
--- OUTSIDE RECORDS SUMMARY | 2023-12-31 22:50 | XMS_ITS | Encounter Summary ---
Author Organization [facility] Address [address] [place] [address] Care Team Providers Care Actimize Architect Name Role Phone Tiffany Gutierres WET PAN OPERATOR Primary Care Provider [phone] Encounter Details Date Type Department Care Team (Late st Contact Info) Description 04/28/2018 Results Only [facility] [phone] Aby Winston MD [address] [place] [address] [place] [address] Social History Tobacco Use Types [...] ? RAJAN MARQUEZ ? Accession #: ? [id number] ? : ? 1950 (Age: 67) ??M [...] (ASCP) 04/28/2018 4:41 PM End of Report [facility] 04/28/2018 16:0 5 EST 04/28/2018 16:05 EST Aby Winston MD PATHOLOGY ORDERClemencia GALINDO [facility] [address] [place] [address] documented in this encounter Visit Diagnoses Not on filedocumented in this encounter Care Teams Actimize Architect Relationship Specialty Start Date End Date Tiffany Gutierres, WET PAN OPERATOR [address] [place] [phone] PCP - General 02/07/12 11/04/19 documented as of this encounter
--- OUTSIDE RECORDS SUMMARY | 2023-12-31 22:50 | XMS_ITS | Encounter Summary ---
Author Organization [facility] Address [facility] [place] [address] Care Team Providers Care Jet Mechanic Name Role Phone Tami Olivia Primary Care Provider [phone] Reason for Referral * Diagnostic Test (Routine) - Closed Specialty Diagnoses / Procedures Referred By Bert gautam Referred To Contact Radiology Diagnoses Mass of upper lobe of left lung Pre-operative cardiovascular examination, high risk surgery Procedures MRI Brain wwo Contrast (Generic) Gilmer Gutiérrez MD [facility] [place] [address] [place] [address] Referral ID Status Reason Start Date Expiration Date V isits Requested Visits Authorized [id number] Closed Specialty Service Requested 01/16/2021 07/16/2022 1 1 Reason for Visit * Diagnostic Test (Routine) - Closed Specialty Diagnoses / Procedures Referred By Contlisa t Referred To Contact Radiology Diagnoses Mass of upper lobe of left lung Pre-operative cardiovascular examination, high risk surgery Procedures MRI Brain wwo Contrast (Generic) Gilmer Gutiérrez MD [facility] [place] [address] [place] [address] Referral ID Status Reason Start Date Expiration Date V isits Requested Visits Authorized [id number] Closed Specialty Service Requested 01/16/2021 07/16/2022 1 1 Encounter Details Date Type Department Care Team (Latest Contact Info) Description 02/10/2021 7:42 AM EST - 02/10/2021 8:40 AM EST Hospital [place] [address] Gilmer Gutiérrez MD [facility] [place] [address] Mass of upper lobe of left lung; [...] AM EST Office Visit Cardiology at [address] [address] Chrissy Zepeda APRN [facility] [place] [address] Scheduled Procedures Name Priority Associated Diagnoses Date/Ti [...] questions please contact the health pet care technician that requested your imaging first. ? Electronically signed by: Ness Murillo MD, [facility] ([phone]), at 02/10/2021 3:23 PM Narrative 02/10/2021 3:23 [...] have questions please contactthe health pet care technician that requested your imaging first. Electronically signed by: Ness Murillo MD, [facility]([phone]), at 02/10/2021 3:23 PM Gilmer Gutiérrez MD [...] mLs documented in this encounter Care Teams Jet Mechanic Relationship Specialty Start Date End Date Tami Olivia [address] [place] [address] PCP - General Family Medicine 12/30/20 documented as of this encounter
--- OUTSIDE RECORDS SUMMARY | 2023-12-31 22:50 | XMS_ITS | Encounter Summary ---
Author Organization [facility] Address [facility] [place] [address] Care Team Providers Care Broadcasting Equipment Mechanic Name Role Phone SudhakarJacksonTami Primary Care Provider [phone] Reason for Referral * Diagnostic Test (Routine) - Closed Specialty Diagnoses / Procedures Referred By Contac t Referred To Contact Radiology Diagnoses Mass of upper lobe of left lung Pre-operative cardiovascular examination, high risk surgery Procedures NM PET CT Skull Base to Mid-thigh Gilmer Gutiérrez MD [facility] [place] [address] [place] [address] Referral ID Status Reason Start Date Expiration Date V isits Requested Visits Authorized [id number] Closed Specialty Service Requested 01/27/2021 03/13/2021 1 1 Reason for Visit * Diagnostic Test (Routine) - Closed Specialty Diagnoses / Procedures Referred By Contac t Referred To Contact Radiology Diagnoses Mass of upper lobe of left lung Pre-operative cardiovascular examination, high risk surgery Procedures NM PET CT Skull Base to Mid-thigh Gilmer Gutiérrez MD [facility] [place] [address] [place] [address] Referral ID Status Reason Start Date Expiration Date V isits Requested Visits Authorized [id number] Closed Specialty Service Requested 01/27/2021 03/13/2021 1 1 Encounter Details Date Type Department Care Team (Latest Contact Info) Description 02/10/2021 8:41 AM EST Hospital Encounter [place] [address] Gilmer Gutiérrez MD [facility] [place] [address] Mass of upper lobe of left lung; [...] 10:40 AM EST Office Visit Cardiology at [address] [place] [address] Chrissy Zepeda APRN [facility] [place] [address] Scheduled Procedures Name Priority Associated Diagnoses Date/Ti [...] who have questions please contact the health tire care manager that requested your imaging first. ? Narrative 02/10/2021 3:25 PM EST EXAMINATION: NM PET CT STANDARD SKULL BASE TO MID-THIGH CLINICAL HISTORY: 70-year-old male with left upper lobe mass presenting for metastatic disease evaluation TECHNIQUE: Following IV injection of 05-tcrpcv-2-deoxyglucose (FDG) a standard uptake of approximately 60 [...] Arm documented in this encounter Care Teams Broadcasting Equipment Mechanic Relationship Specialty Start Date End Date Tami Olivia [address] [place] [address] PCP - General Family Medicine 12/30/20 documented as of this encounter
--- OUTSIDE RECORDS SUMMARY | 2023-12-31 22:50 | XMS_ITS | Encounter Summary ---
Author Organization [facility] Address [address] [place] [address] Care Team Providers Care Expediter Service Order Name Role Phone Tami Olivia Primary Care Provider [phone] Reason for Visit * Reason Onset Date Comments Appointment Related 02/20/2022 Encounter Details Date Type Department Care Team (Late st Contact Info) Description 02/20/2022 Telephone [facility] Rheumatology [address] [place] [address] Mena Ng MD [address] [facility] [address] [place] [phone] Appointment Related Social History Tobacco Use Types [...] Dr. Ng, he has been admitted at [facility]. Appt has been rescheduled to April. documented in this encounter Plan of Treatment Not on file documented as of this encounter Visit Diagnoses Not on filedocumented in this encounter Care Teams Expediter Service Order Relationship Specialty Start Date End Date Tami Olivia [address] [place] [address] PCP - General 12/04/19 documented as of this encounter
--- OUTSIDE RECORDS SUMMARY | 2023-12-31 22:50 | XMS_ITS | Encounter Summary ---
Author Organization [facility] Address [address] [place] [address] Care Team Providers Care Airplane Flight Attendant Name Role Phone Unknown, Provider Primary Care Provider [phone] Encounter Details Date Type Department Care Team (Late st Contact Info) Description 02/05/2012 Results Only [facility] ([facility] [address] [place], [place] [id number] Марина Mann MD [address] [place] [id number] Social History Tobacco Use Types Packs/Day Years [...] ? RAJAN MARQUEZ ? Accession #: ? [id number] ? : ? 1950 (Age: 61) ??M ? Collect Date: ? 02/05/2012 ? Location: ? [facility] ? Receive Date: ? 02/06/2012 ? Provider: МАРИНА MANN MD Copy to: IRIS ROY QUALITY PROCESS ENGINEER ? Final Pathologic Diagnosis: ? Skin of ear, left external, shave biopsy: - Fibroepithelial polyp (soft fibroma). Microscopic Description: ? Sections are of a pedunculated portion of skin. ??The epidermis is relatively unremarkable. ??Within the dermis, there is loose fibrous tissue with stellate fibroblasts. ??There are lobules of mature adipose tissue. ??(Dr. Iglesias)/[facility] Document reviewed and electronically signed by: RICARDO [...] entirely submitted as (A1) and (A2). (Ronit Juarez)/[facility] End of Report RAYNA KUMAR 02/05/2012 02/06/2012 19: 45 EST Марина Mann MD PATHOLOGY ORDERABLES RAYNA KUMAR [address] [place] [address] documented in this encounter Visit Diagnoses Not on filedocumented in this encounter Care Teams Airplane Flight Attendant Relationship Specialty Start Date End Date Unknown, Provider, PCP - General 02/06/12 02/06/12 documented as of this encounter
--- OUTSIDE RECORDS SUMMARY | 2023-12-31 22:50 | XMS_ITS | Encounter Summary ---
Author Organization [facility] Address [address] [place] [address] Care Team Providers Care Manager Metal Name Role Phone Tmai Olivia Primary Care Provider [phone] Encounter Details Date Type Department Care Team (Late st Contact Info) Description 12/11/2021 Lab Requisition [facility] Pathology & Laboratory Medicine - [facility] [address] [place] [address] Outr Resulting Lab, Provider Social History Tobacco [...] ID No fungi isolated 01/08/2022 10:43 EDT [facility] Fungal Smear No Fungi Seen 01/08/2022 10:43 EDT [facility] Fluid PLEURAL / Unknown 12/11/2021 11:00 EDT 12/11/2021 17:43 EDT Provider Outr Resulting Lab MICROBIOLOGY - GENERAL ORDERABLES Performing Organization Address City/State/[facility] Co de Phone Number [facility] [address] [place] [address] documented in this encounter Visit Diagnoses Not on filedocumented in this encounter Care Teams Manager Metal Relationship Specialty Start Date End Date Tami Olivia [address] [place] [address] PCP - General 12/04/19 documented as of this encounter
--- OUTSIDE RECORDS SUMMARY | 2023-12-31 22:50 | XMS_ITS | Encounter Summary ---
Author Organization [facility] Address [address] [place] [address] Care Team Providers Care Tool Repairer Name Role Phone Tami Olivia Primary Care Provider [phone] Reason for Visit * Reason Comments Medications Refill Encounter Details Date Type Department Care Team (Late st Contact Info) Description 04/09/2023 Refill [facility] Rheumatology [address] [place], [place] [phone] Mena Ng MD [address] [facility] [address] [place] [address] Medications Refill Social History Tobacco [...] documented as of this encounter Care Teams Tool Repairer Relationship Specialty Start Date End Date Tami Olivia [address] [place] [address] PCP - General 12/04/19 documented as of this encounter
--- OUTSIDE RECORDS SUMMARY | 2023-12-31 22:50 | XMS_ITS | Encounter Summary ---
Author Organization [facility] Address [facility] [place] [address] Care Team Providers Care Internet Marketing Consultant Name Role Phone SudhakarJacksonTami Primary Care Provider [phone] Reason for Referral * Diagnostic Test (Routine) - Specialty Diagnoses / Procedures Referred By Bert t Referred To Contact Radiology Diagnoses Mass of upper lobe of left lung Pre-operative cardiovascular examination, high risk surgery Procedures NM Exercise Stress and Rest Myocardial Perfusion Gilmer Gutiérrez MD [facility] [place] [address] [place] [address] Referral ID Status Reason Start Date Expiration Date Visits Requested Visits Authorized [id number] Specialty Service Requested 02/09/2021 03/26/2021 4 4 Reason for Visit * Diagnostic Test (Routine) - Specialty Diagnoses / Procedures Referred By Contlisa t Referred To Contact Radiology Diagnoses Mass of upper lobe of left lung Pre-operative cardiovascular examination, high risk surgery Procedures NM Exercise Stress and Rest Myocardial Perfusion Gilmer Gutiérrez MD [facility] [place] [address] [place] [address] Referral ID Status Reason Start Date Expiration Date Visits Requested Visits Authorized [id number] Specialty Service Requested 02/09/2021 03/26/2021 4 4 Encounter Details Date Type Department Care Team (Latest Contact Info) Description 02/13/2021 10:01 AM EST Hospital Encounter Nuclear Medicine at [facility] [place] [address] Gilmer Gutiérrez MD [facility] DR THORACIC SURGERY [facility] [place] [address] Mass of upper lobe of left lung; [...] 10:40 AM EST Office Visit Cardiology at [address] [address] Chrissy Zepeda APRN [facility] [place] [address] Scheduled Procedures Name Priority Associated Diagnoses Date/Ti [...] who have questions please contact the health ocular care technologist that requested your imaging first. ? Narrative [...] patients who have questions please contactthe health ocular care technologist that requested your imaging first. Gilmer Gutiérrez [...] mCi documented in this encounter Care Teams Internet Marketing Consultant Relationship Specialty Start Date End Date Tami Olivia [address] [place] [address] PCP - General Family Medicine 12/30/20 documented as of this encounter
--- OUTSIDE RECORDS SUMMARY | 2023-12-31 22:50 | XMS_ITS | Encounter Summary ---
Author Organization [facility] Address [address] [place] [address] Care Team Providers Care Bookkeeper Assistant Name Role Phone Tami Olivia Primary Care Provider [phone] Reason for Visit * Reason Comments Follow-up Lupus anti coag posi tive; feels a lot better; pain is weather dependent. Encounter Details Date Type Department Care Team (Late st Contact Info) Description 12/04/2019 9:45 EDT Office Visit [facility] Rheumatology [address] [place] [address] Mena Ng MD [address] [facility] [address] [place] [address] RS3PE syndrome (Primary Dx); Encounter [...] you in a year. Call if problems [facility] Patient Instructions hydroxychloroquine Pronunciation: shaina drox [...] system);or ?? a genetic enzyme deficiency called tchsody-3-qarwwodww dehydrogenase (G6PD) deficiency. Tell your doctor if [...] may report side effects to FDA at 4-739-QVB-1911. What other drugs will affect hydroxychloroquine? Hydroxychloroquine [...] drugs may affect hydroxychloroquine, including prescription and gckf-twa-twbsiue medicines, vitamins, and herbal products. Not all [...] to ensure that the information provided by [employer] ('[employer]') is accurate, up-to-date, and complete, but no guarantee is made to that effect. Drug information contained herein may be time sensitive. [employer] information has been compiled for use by healthcare practitioners and consumers in the [place] and therefore [employer] does not warrant that uses outside of the [place] are appropriate, unless specifically indicated otherwise. [employer] drug information does not endorse drugs, diagnose patients or recommend therapy. [employer] drug information isan informational resource designed to [...] effective or appropriate for any given patient. [employer] does not assume any responsibility for any aspect of healthcare administered with the aid of information [employer] provides. The information contained herein is not intended to cover all possible uses, directions, precautions, warnings, drug interactions, allergic reactions, or adverse effects. If you have questions about the drugs you are taking, check with your doctor, nurse or pharmacist. Copyright 2362-4988 [employer] Version: 10.02. Revision date: 08/24/2019. Care instructions adapted under license by [facility]. If you have questions about a medical condition or this instruction, always ask your healthcare professional. [employer] disclaims any warranty or liability for your [...] that he has not been to the hand upper and bottom lacer recently. Patient states that a little over [...] Patient states that he has retired from [employer] in [place], [place], felt that he was going crazy staying at home all the time, and has since started working at [employer] in [place], [place] for 4 hours a day. Current [...] file Gets together: Not on file Attends judaism service: Not on file Active member of [...] documented as of this encounter Care Teams Bookkeeper Assistant Relationship Specialty Start Date End Date Tami Olivia [address] [place] [address] PCP - General 12/04/19 documented as of this encounter
--- OUTSIDE RECORDS SUMMARY | 2023-12-31 22:50 | XMS_ITS | Encounter Summary ---
Author Organization [facility] Address [address] [place] [address] Care Team Providers Care Funeral Planner Name Role Phone Unavailable Primary Care Provider Unavailabl e Encounter Details Date Type Department Care Team (Late st Contact Info) Description 11/05/2019 Abstract [facility] - [facility] Rheumatology [address] [place] [address] Jeannie Hurtado RN Social History Tobacco Use [...]
--- OUTSIDE RECORDS SUMMARY | 2023-12-31 22:50 | XMS_ITS | Clinical Summary ---
Author Organization [facility] Address [address] [place] [address] Care Team Providers Care Front Office Supervisor Name Role Phone Tami Olivia Primary Care Provider [phone] Allergies Active Allergy Reactions Criticality Noted Date [...] pulmonary disease) ([facility]) 11/05/2019 ADHD 11/05/2019 Depression 11/05/2019 [...] Cancer Screening 04/16/2023 04/16/2022, 022 Care Teams Front Office Supervisor Relationship Specialty Start Date End Date Tami Olivia [address] [place] [address] PCP - General 12/04/19
--- OUTSIDE RECORDS SUMMARY | 2023-12-31 22:50 | XMS_ITS | Encounter Summary ---
Author Organization [facility] Address [facility] [place] [address] Care Team Providers Care Institutional Asset Manager Name Role Phone Tami Olivia Primary Care Provider [phone] Encounter Details Date Type Department Care Team (Late st Contact Info) Description 01/17/2021 Notes [place] [address] Anali Benítez Social History Tobacco Use Types [...] .. Anali Benítez, [place] [address] [email or web address] HPI: Rajan Marquez is a 70 y.o. [...] () e-cigarette (X) Cigarettes Brand currently smoking: guadalupita Current amount: 1ppd Age initiated: 10yrs Years [...] in places where it is forbidden? (ex. mormon) No Yes 0 3. Which cigarette would [...] The patient has been provided with a [facility] Smoking Cessation packet. The patient has my [...] steps: Anali Benítez 01/17/21 Tobacco Treatment Program [facility] documented in this encounter Plan of Treatment Upcoming Encounters Date Type Department Care Team (Late st Contact Info) Description 01/20/2024 10:40 AM EST Office Visit Cardiology at [address] [place] [address] Chrissy Zepeda APRN [facility] [place] [address] Scheduled Procedures Name Priority Associated Diagnoses Date/Ti me CARDIOVERSION-ELECTIVE (WRVU 2) atrial flutter ELECTROPHYSIOLOGY PROCEDURE Persistent atrial fibrillation CARDIOVERSION-ELECTIVE (WRVU 2) persistent atrial fibrillation TRANSESOPHAGEAL ECHOCARDIOGR AM (WRVU 2.3) persistent atrial fibrillation documented as of this encounter Visit Diagnoses Not on filedocumented in this encounter Care Teams Institutional Asset Manager Relationship Specialty Start Date End Date Tami Olivia [address] [place] [address] PCP - General Family Medicine 12/30/20 documented as of this encounter
--- OUTSIDE RECORDS SUMMARY | 2023-12-31 22:50 | XMS_ITS | Referral Summary ---
Author Organization [facility] Address [address] [place] [address] Care Team Providers Care Parts Room Assistant Name Role Phone Tami Olivia Primary Care Provider [phone] Allergies Active Allergy Reactions Criticality Noted Date [...] COPD (chronic obstructive pulmonary disease) ([facility]) 11/05/2019 ADHD 11/05/2019 Depression 11/05/2019 [...] of Treatment Not on file Care Teams Parts Room Assistant Relationship Specialty Start Date End Date Tami Olivia [address] [place] [address] PCP - General 12/04/19
--- OUTSIDE RECORDS SUMMARY | 2023-12-31 22:50 | XMS_ITS | Encounter Summary ---
Author Organization [facility] Address [address] [place] [address] Care Team Providers Care Wireless Team Member Name Role Phone Tami Olivia Primary Care Provider [phone] Reason for Visit * Reason Onset Date Comments Medications Refill 05/10/2020 Encounter Details Date Type Department Care Team (Late st Contact Info) Description 05/10/2020 Refill [facility] Rhe[facility]ology [address] [place], [place] [phone] Rowena Ornelas MD [address] [facility] [address] [place] [phone] Medications Refill Social History Tobacco Use Types [...] on filedocumented in this encounter Care Teams Wireless Team Member Relationship Specialty Start Date End Date Tami Olivia [address] [place] [address] PCP - General 12/04/19 documented as of this encounter
--- OUTSIDE RECORDS SUMMARY | 2023-12-31 22:50 | XMS_ITS | Encounter Summary ---
Author Organization [facility] Address [address] [place] [address] Care Team Providers Care Ethical Hacker Name Role Phone Tami Olivia Primary Care Provider [phone] Encounter Details Date Type Department Care Team (Late st Contact Info) Description 09/28/2021 Lab Requisition [facility] Pathology & Laboratory Medicine - [facility] [address] [place] [address] Outr Resulting Lab, Provider Social History Tobacco [...] PSA 2.4 <=6.5 ng/mL 09/28/2021 22:36 EDT [facility] Blood VENOUS BLOOD / Unknown 09/28/2021 10:40 EDT 09/28/2021 21:24 EDT Narrative [facility] - 09/28/2021 22:36 EDT NOTE: Serum PSA concentration should not be interpreted as absolute evidence for the presence or absence of malignant disease. Assayed on Siemens [employer] XPT using chemiluminescent technology.??Values obtained by using different assay methods cannot be used interchangeably. Provider Outr Resulting Lab CHEMISTRY & BLOOD GAS ORDERABLES [facility] [address] [place] [address] documented in this encounter Visit Diagnoses Not on filedocumented in this encounter Care Teams Ethical Hacker Relationship Specialty Start Date End Date Tami Olivia [address] [place] [address] PCP - General 12/04/19 documented as of this encounter
--- OUTSIDE RECORDS SUMMARY | 2023-12-31 22:50 | XMS_ITS | Encounter Summary ---
Author Organization [facility] Address [facility] [place] [address] Care Team Providers Care Powder Room Attendant Name Role Phone Tami Olivia Primary Care Provider [phone] Reason for Referral * Diagnostic Test (Routine) - Closed Specialty Diagnoses / Procedures Referred By Bert gautam Referred To Contact Radiology Diagnoses Mass of upper lobe of left lung Pre-operative cardiovascular examination, high risk surgery Procedures MRI Brain wwo Contrast (Generic) Gilmer Foster MD [facility] [place] [address] [place] [address] Referral ID Status Reason Start Date Expiration Date V isits Requested Visits Authorized [id number] Closed Specialty Service Requested 01/16/2021 07/16/2022 1 1 * Diagnostic Test (Routine) - Specialty Diagnoses / Procedures Referred By Bert gautam Referred To Contact Radiology Diagnoses Mass of upper lobe of left lung Pre-operative cardiovascular examination, high risk surgery Procedures NM Exercise Stress and Rest Myocardial Perfusion Gilmer Foster MD [facility] [place] [address] [facility] [place] [address] Referral ID Status Reason Start Date Expiration Date Visits Requested Visits Authorized [id number] Specialty Service Requested 02/09/2021 03/26/2021 4 4 * Diagnostic Test (Routine) - Closed Specialty Diagnoses / Procedures Referred By Contac t Referred To Contact Radiology Diagnoses Mass of upper lobe of left lung Pre-operative cardiovascular examination, high risk surgery Procedures NM Exercise Stress CT Component Gilmer Foster MD [facility] [place] [address] [place] [address] Referral ID Status Reason Start Date Expiration Date V isits Requested Visits Authorized [id number] Closed Specialty Service Requested 02/09/2021 03/26/2021 1 1 * Diagnostic Test (Routine) - Closed Specialty Diagnoses / Procedures Referred By Contac t Referred To Contact Radiology Diagnoses Mass of upper lobe of left lung Pre-operative cardiovascular examination, high risk surgery Procedures NM PET CT Skull Base to Mid-thigh Gilmer Foster MD [facility] [place] [address] [place] [address] Referral ID Status Reason Start Date Expiration Date V isits Requested Visits Authorized [id number] Closed Specialty Service Requested 01/27/2021 03/13/2021 1 1 Reason for Visit * Reason Comments Advice Only * Consultation (Urgent) - Closed Specialty Diagnoses / Procedures Referred By Contac t Referred To Contact Thoracic Surgery Diagnoses Other nonspecific abnormal finding of lung field Nicotine dependence, unspecified, uncomplicated Other nonspecific abnormal finding of lung field Tami Olivia [address] [place] [address] [facility] [address] [place] [address] Referral ID Status Reason Start Date Expiration Date V isits Requested Visits Authorized [id number] Closed Consult, [facility] PCP Updated and/or Approved 12/30/2020 12/30/2021 6 6 Encounter Details Date Type Department Care Team (Latest Contact Info) Description 01/16/2021 1:45 PM EST Office [place] [address] Gilmer Foster MD [facility] [place] [address] Mass of upper lobe of left lung; [...] check in for you PET scan at [facility] area [facility]. Please refrain from eating or [...] will check in for your MRI at [facility]. Please remember to remove all [...] weigh more than 300 pounds please call [phone] weekdays 8 to 4pm and tell the appointment company secretary. This information will help us choose the best way to schedule your test. *If you have diabetes and take insulin, tell the company secretary scheduling your appointment. We need to [...] at least 24 hours in advance at [phone]. This office is open Saturday through Saturday 8:00 am to 5:00pm. Please check in at the 3 care manager cna desk on the day of your test. You will be having a stress test. A stress test shows how well your heart works with increased demands on it. You will check in for your stress test at [facility]. You must refrain from eatingor [...] of certain lung disorders. You will check [facility] area [facility] for your Pulmonary Function Testing. [...] Marquez is a 70-year-old man with a 509-smgw-kuys smoking history who had a screening chest [...] Outpatient Consultation Note MD Matt Fischer PA [place] [address] Date of Consultation: 01/16/2021 This consultation has been requested by PCP: Tami Olivia Referring Physician: Tami Olivia [address] [place] [address] Purpose for Consultation: Spiculated 2.8 cm ARACELI [...] positives as documented per HPI. Patient denies TN/stroke/TIA/DVT/PE/cancer, problems with kidneys/liver/bleeding/anesthesia, fevers, chills, sweats, weight [...] Dr. Foster. STEVE Arriaga 01/16/2021 Thoracic Surgery [facility] documented in this encounter Plan of Treatment Upcoming Encounters Date Type Department Care Team (Late st Contact Info) Description 01/20/2024 10:40 AM EST Office Visit Cardiology at [address] [place] [address] Chrissy Zepeda APRN [facility] [place] [address] Scheduled Procedures Name Priority Associated Diagnoses Date/Ti [...] / FVC LLN 63 % COMPAS PFT AIC49-55 Actual Pre-BD 3.63 L/s COMPAS PFT ELH40-35 Pre-BD % of Predicted 159 % COMPAS PFT RQK08-74 Predicted 2.29 L/s COMPAS PFT FQI42-22 Pre-BD Z-Score 1.24 COMPAS PFT DLCO Hb [...] have questions please contact the health rn urgent care that requested your imaging first. ? Procedure [...] who have questions please contactthe health rn urgent care that requested your imaging first. Gilmer [...] have questions please contact the health rn urgent care that requested your imaging first. ? [...] who have questions please contactthe health rn urgent care that requested your imaging first. Gilmer [...] have questions please contact the health rn urgent care that requested your imaging first. ? Narrative 02/10/2021 3:25 PM EST EXAMINATION: NM PET CT STANDARD SKULL BASE TO MID-THIGH CLINICAL HISTORY: 70-year-old male with left upper lobe mass presenting for metastatic disease evaluation TECHNIQUE: Following IV injection of 16-xlfeoa-3-deoxyglucose (FDG) a standard uptake of approximately 60 [...] have questions please contact the health rn urgent care that requested your imaging first. ? [...] who have questions please contactthe health rn urgent care that requested your imaging first. Gilmer Foster MD IMG MRI ORDERABL ES * EKG 12 Lead (01/16/2021 2:36 PM EST) Ventricular rate 81 BPM MUSE SYSTEM Atrial Rate 81 BPM MUSE SYSTEM P-R Interval 168 ms MUSE SYSTEM QRS Duration 104 ms MUSE SYSTEM Q-T Interval 402 ms MUSE SYSTEM QTC Calculated (Bezet) 466 ms MUSE SYSTEM Calculated P [place] 79 degrees MUSE SYSTEM Calculated R [place] 99 degrees MUSE SYSTEM Calculated T [place] 15 degrees MUSE SYSTEM INTERPRETATION Sinus rhythm [...] examination documented in this encounter Care Teams Powder Room Attendant Relationship Specialty Start Date End Date Tami Olivia [address] [place] [address] PCP - General Family Medicine 12/30/20 documented as of this encounter
--- OUTSIDE RECORDS SUMMARY | 2023-12-31 22:50 | XMS_ITS | Encounter Summary ---
Author Organization [facility] Address [address] [place] [address] Care Team Providers Care Trimming Machine Set Up Operator Name Role Phone Tiffany Gutierres RAILROAD WORKER Primary Care Provider [phone] Encounter Details Date Type Department Care Team (Latest Contact Info) Description 04/28/2018 13:26 EST - 04/28/2018 23:59 EST Hospital Encounter [address] [address] Unknown, Provider, Discharge Disposition: Home or Self Care Social History Tobacco Use Types Packs/Day Years Used Date Smoking Tobacco: Never Assessed Sex and Gender Information Value Date Recorded Sex Assigned at Not on file Gender Identity Male 11/05/2019 8:00 EDT Sexual Orientation Not on file documented as of this encounter Discharge Disposition Disposition Code Departure Means Destination Home or Self Group Home documented in this encounter Plan of Treatment Not on file documented as of this encounter Visit Diagnoses Not on filedocumented in this encounter Care Teams Trimming Machine Set Up Operator Relationship Specialty Start Date End Date Tiffany Gutierres NP [address] [place] [phone] PCP - General 02/07/12 11/04/19 documented as of this encounter
--- OUTSIDE RECORDS SUMMARY | 2023-12-31 22:50 | XMS_ITS | Encounter Summary ---
Author Organization [facility] [place] [address] Care Team Providers Care Pool Hall Inspector Name Role Phone Unavailable Primary Care Provider Unavailabl e Encounter Details Date Type Department Care Team (Late st Contact Info) Description 12/23/2020 Ancillary Procedure Radiology Library [facility] [place] [address] Kasie Marcus MD [address] [place] [id number] Social History Tobacco Use Types Packs/Day Years [...] AM EST Office Visit Cardiology at [address] [place] [address] Chrissy Zepeda, MEDICAL BILLING ASSISTANT [facility] [place] [address] Scheduled Procedures Name Priority Associated Diagnoses Date/Ti [...] MD IMG FILM LIBRARY ORDERABLES THU JIMENEZ [place] documented in this encounter Visit Diagnoses Not on filedocumented in this encounter
--- OUTSIDE RECORDS SUMMARY | 2023-12-31 22:50 | XMS_ITS | Encounter Summary ---
Author Organization [facility] Address [facility] [place] [address] Care Team Providers Care Management Intern Name Role Phone Tami Olivia Primary Care Provider [phone] Encounter Details Date Type Department Care Team (Late st Contact Info) Description 01/23/2021 [place]phone [place] [phone] Anali Benítez Social History Tobacco Use Types [...] AM EST Office Visit Cardiology at [address] [phone] Chrissy Zepeda, MORTEZA [facility] [place] [address] Scheduled Procedures Name Priority Associated Diagnoses Date/Ti me CARDIOVERSION-ELECTIVE (WRVU 2) atrial flutter ELECTROPHYSIOLOGY PROCEDURE Persistent atrial fibrillation CARDIOVERSION-ELECTIVE (WRVU 2) persistent atrial fibrillation TRANSESOPHAGEAL ECHOCARDIOGR AM (WRVU 2.3) persistent atrial fibrillation documented as of this encounter Visit Diagnoses Not on filedocumented in this encounter Care Teams Management Intern Relationship Specialty Start Date End Date Tami Olivia [address] [place] [address] PCP - General Family Medicine 12/30/20 documented as of this encounter
--- OUTSIDE RECORDS SUMMARY | 2023-12-31 22:50 | XMS_ITS | Encounter Summary ---
Author Organization [facility] Address [facility] [place] [address] Care Team Providers Care Director Of Radio Services Name Role Phone Tami Olivia Primary Care Provider [phone] Reason for Visit * Diagnostic Test (Routine) - Closed Specialty Diagnoses / Procedures Referred By Bert gautam Referred To Contact Radiology Diagnoses Mass of upper lobe of left lung Pre-operative cardiovascular examination, high risk surgery Procedures NM PET CT Skull Base to Mid-thigh Gilmer Gutiérrez MD [facility] [place] [address] [facility] [place] [address] Referral ID Status Reason Start Date Expiration Date V isits Requested Visits Authorized [id number] Closed Specialty Service Requested 01/27/2021 03/13/2021 1 1 Encounter Details Date Type Department Care Team (Latest Contact Info) Description 02/10/2021 8:42 AM EST - 02/10/2021 11:59 PM [facility] Hospital Encounter [place] [phone] Gilmer Gutiérrez MD [facility] [place] [address] Discharge Disposition: Home Social History [...] AM EST Office Visit Cardiology at [address] [address] Chrissy Zepeda, MORTEZA [facility] [place] [address] Scheduled Procedures Name Priority Associated Diagnoses Date/Ti [...] Glucose, POC 90 65 - 199 mg/dL [facility] Comment: Supplemental ranges: <140 mg/dL before meals <180 mg/dL all other times of the day Blood 02/10/2021 9:13 AM EST 02/10/2021 9:13 AM EST Gilmer Gutiérrez MD POINT OF CARE TE ST ORDERABLES [facility] [place] [address] documented in this encounter Visit Diagnoses Not on filedocumented in this encounter Care Teams Director Of Radio Services Relationship Specialty Start Date End Date Tami Olivia [address] [place] [address] PCP - General Family Medicine 12/30/20 documented as of this encounter
--- OUTSIDE RECORDS SUMMARY | 2023-12-31 22:50 | XMS_ITS | Encounter Summary ---
Author Organization [facility] Address [address] [place] [address] Care Team Providers Care Outside B2B Sales Name Role Phone Tami Olivia Primary Care Provider [phone] Reason for Visit * Reason Onset Date Comments Other Medications Refill 11/06/2019 Encounter Details Date Type Department Care Team (Late st Contact Info) Description 11/05/2019 Refill [facility] Rheumatology [address] [place] [address] Mena Ng MD [address] [facility] [address] [place] [phone] Other; Medications Refill Social History Tobacco Use [...] documented as of this encounter Care Teams Outside B2B Sales Relationship Specialty Start Date End Date Tami Olivia [address] [place] [address] PCP - General 12/04/19 documented as of this encounter
--- OUTSIDE RECORDS SUMMARY | 2023-12-31 22:50 | XMS_ITS | Encounter Summary ---
Author Organization [facility] Address [facility] [place] [address] Care Team Providers Care Mill Worker Name Role Phone SudhakarJacksonTami Primary Care Provider [phone] Reason for Visit * Diagnostic Test (Routine) - Specialty Diagnoses / Procedures Referred By Bert gautam Referred To Contact Radiology Diagnoses Mass of upper lobe of left lung Pre-operative cardiovascular examination, high risk surgery Procedures NM Exercise Stress and Rest Myocardial Perfusion Gilmer Gutiérrez MD [facility] [place] [address] [facility] [place] [address] Referral ID Status Reason Start Date Expiration Date Visits Requested Visits Authorized [id number] Specialty Service Requested 02/09/2021 03/26/2021 4 4 Encounter Details Date Type Department Care Team (Latest Contact Info) Description 02/13/2021 10:02 AM EST Hospital Encounter [place] [address] Gilmer Gutiérrez MD [facility] [place] [address] Discharge Disposition: Home Social History [...] AM EST Office Visit Cardiology at [address] [place] [address] Chrissy Zepeda APRN [facility] [place] [address] Scheduled Procedures Name Priority Associated Diagnoses Date/Ti [...] questions please contact the health day care director that requested your imaging first. ? Narrative [...] have questions please contactthe health day care director that requested your imaging first. Gilmer Gutiérrez MD IMG NM ORDERABLE S documented in this encounter Visit Diagnoses Not on filedocumented in this encounter Care Teams Mill Worker Relationship Specialty Start Date End Date Tami Olivia [address] [place] [address] PCP - General Family Medicine 12/30/20 documented as of this encounter
--- OUTSIDE RECORDS SUMMARY | 2023-12-31 22:50 | XMS_ITS | Encounter Summary ---
Author Organization [facility] Address [address] [place] [address] Care Team Providers Care Structural Mill Supervisor Name Role Phone Tami Olivia Primary Care Provider [phone] Encounter Details Date Type Department Care Team (Late st Contact Info) Description 08/10/2021 Lab Requisition [facility] Pathology & Laboratory Medicine - [facility] [address] [place] [address] Outr Resulting Lab, Provider Social History Tobacco [...] PSA 4.7 <=6.5 ng/mL 08/10/2021 22:25 EDT [facility] Blood VENOUS BLOOD / Unknown 08/10/2021 12:55 EDT 08/10/2021 21:07 EDT Narrative [facility] - 08/10/2021 22:25 EDT NOTE: Serum PSA concentration should not be interpreted as absolute evidence for the presence or absence of malignant disease. Assayed on Siemens [employer] XPT using chemiluminescent technology.??Values obtained by using different assay methods cannot be used interchangeably. Provider Outr Resulting Lab CHEMISTRY & BLOOD GAS ORDERABLES [facility] [address] [place] [address] documented in this encounter Visit Diagnoses Not on filedocumented in this encounter Care Teams Structural Mill Supervisor Relationship Specialty Start Date End Date Tami Olivia [address] [place] [address] PCP - General 12/04/19 documented as of this encounter
--- OUTSIDE RECORDS SUMMARY | 2023-12-31 22:50 | XMS_ITS | Encounter Summary ---
Author Organization [facility] Address [address] [place] [address] Care Team Providers Care Obstetric Assistant Name Role Phone Tami Olivia Primary Care Provider [phone] Reason for Visit * Reason Comments Follow-up RS3PE syndrome Encounter Details Date Type Department Care Team (Late st Contact Info) Description 12/07/2020 13:15 EDT Office Visit [facility] Rhe[place]ology [address] [place] [address] Mena Ng MD [address] [facility] [address] [place] [phone] RS3PE syndrome (Primary Dx) Social History Tobacco [...] 12/07/2020 added in this encounter Care Teams Obstetric Assistant Relationship Specialty Start Date End Date Tami Olivia [address] [place] [address] PCP - General 12/04/19 documented as of this encounter
--- OUTSIDE RECORDS SUMMARY | 2023-12-31 22:50 | XMS_ITS | Encounter Summary ---
Author Organization [facility] Address [address] [place] [address] Care Team Providers Care Document Control Supervisor Name Role Phone Tami Olivia Primary Care Provider [phone] Encounter Details Date Type Department Care Team (Late st Contact Info) Description 12/12/2021 Lab Requisition [facility] Pathology & Laboratory Medicine - [address] [phone] Josephine Sotomayor MD [address] [facility], [address] [place] [address] Encounter for other general examination [...] Name Priority Date/Time Associated Diagnosis Comments NON JIGMAKER/FNA CYTOLOGY Today 12/11/2021 10:54 EDT Encounter for other general examination documented in this encounter Results * NON JIGMAKER/FNA CYTOLOGY (12/11/2021 10:54 EDT) Note to Patient The following pathology results have been interpreted by your pathologist and may be available to you before your health provider has had the opportunity to review them. Please allow time for your provider to receive these results and explore management options, if applicable. 12/12/2021 10:41 [facility] Final Diagnosis A. PLEURAL FLUID, LATERALITY NOT SPECIFIED, CYTOLOGIC EVALUATION: - Negative for malignant epithelial cells. - Hypocellular specimen composed of predominantly small lymphocytes. See comment. 12/12/2021 10:41 [facility] Diagnosis Comment Please see the concurrent flow cytometry ([id number]) for characterization of the lymphocytes. 12/12/2021 10:41 [facility] Attestation By the signature below, the attending physician certifies that they have personally conducted a gross and/or microscopic examination of the described specimens and rendered or confirmed the above diagnosis. 12/12/2021 10:41 [facility] at 1041 Clinical History Pleural effusion 12/12/2021 10:41 [facility] Gross Description A. 50cc's of clear yellow fluid were received and processed by selective cellular enhancement technique. 12/12/2021 10:41 [facility] Performing Lab [facility] 10:41 [facility] Scanned Images 12/12/2021 10:41 EDT [facility] Fluid PLEURAL FLUID / Unknown 12/11/2021 10:54 EDT 12/12/2021 6:39 EDT Josephine Sotomayor MD PATHOLOGY ORDERABLES [facility] [address] [place] [address] documented in this encounter Visit Diagnoses Diagnosis Encounter for other general examination documented in this encounter Care Teams Document Control Supervisor Relationship Specialty Start Date End Date Tami Olivia [address] [place] [address] PCP - General 12/04/19 documented as of this encounter
--- OUTSIDE RECORDS SUMMARY | 2023-12-31 22:50 | XMS_ITS | Encounter Summary ---
Author Organization [facility] Address [address] [place] [address] Care Team Providers Care Tank Crewmember Name Role Phone Tami Olivia Primary Care Provider [phone] Encounter Details Date Type Department Care Team (Late st Contact Info) Description 01/22/2022 Lab Requisition [facility] Pathology & Laboratory Medicine - [facility] [address] [place] [address] Gab Mejia MD [address] [place] [address] [address] [place], [place] [address] Encounter for other general examination Social History [...] explore management options, if applicable. 01/23/2022 16:55 [facility] Final Diagnosis A. COLON, DESCENDING, POLYP, BIOPSY: - Tubular adenoma. B. COLON, ASCENDING, POLYPS X2, BIOPSY: - Tubular adenomas. 01/23/2022 16:55 [facility] Attestation By the signature below, the attending physician certifies that they have 1) personally conducted a gross and/or microscopic examination of the described specimen(s), and/or personally interpreted the results of laboratory testing of the described specimen(s), and 2) personally rendered or confirmed the above diagnosis. 01/23/2022 16:55 [facility] at 1655 Clinical History Hx of colon polyps 01/23/2022 16:55 [facility] Gross Description A. [...] ISIDRA CHALOR 01/23/2022 5:43 01/23/2022 16:55 EST [facility] Performing Lab [facility] 01/23/2022 16:55 EST [facility] Scanned Images 01/23/2022 16:55 EST [facility] Tissue POLYP OF COLON / Unknown 01/22/2022 12:00 EST 01/22/2022 16:51 EST Tissue specimen (specimen) POLYP OF COLON / Unknown 01/22/2022 12:00 EST 01/22/2022 16:51 EST Gab Mejia MD PATHOLOGY ORDERA JOSIE [facility] [address] [place] [address] documented in this encounter Visit Diagnoses Diagnosis Encounter for other general examination documented in this encounter Care Teams Tank Crewmember Relationship Specialty Start Date End Date Tami Olivia [address] [place], [place] [phone] PCP - General 12/04/19 documented as of this encounter
--- OUTSIDE RECORDS SUMMARY | 2023-12-31 22:50 | XMS_ITS | Encounter Summary ---
Author Organization [facility] Address [address] [place] [address] Care Team Providers Care Bellperson Name Role Phone Tami Olivia Primary Care Provider [phone] Reason for Visit * Reason Comments Medication Management Doing well, no com plaints. Encounter Details Date Type Department Care Team (Late st Contact Info) Description 05/08/2023 13:15 EST Office Visit [facility] - [facility] Rheumatology [address] [place], [place] [phone] Mena Ng MD [address] [facility] [address] [place] [phone] RS3PE syndrome (Primary Dx); High risk medication [...] Mena Ng MD - 05/08/2023 1315 EST [facility] -Rheumatology follow up Chief Complaint Patient presents with Medication Management Doing well, no complaints. 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 HPI Doing [...] documented as of this encounter Care Teams Bellperson Relationship Specialty Start Date End Date Tami Olivia [address] [place] [address] PCP - General 12/04/19 documented as of this encounter
--- OUTSIDE RECORDS SUMMARY | 2023-12-31 22:50 | XMS_ITS | Encounter Summary ---
Author Organization [facility] Address [address] [place] [address] Care Team Providers Care Geology Teacher Name Role Phone Tami Olivia Primary Care Provider [phone] Encounter Details Date Type Department Care Team (Late st Contact Info) Description 12/06/2021 Lab Requisition [facility] Pathology & Laboratory Medicine - [facility] [address] [place] [address] Outr Resulting Lab, Provider Social History Tobacco [...] * QUANTIFERON INTERPRETATION (PERFORMABLE) (12/05/2021 13:56 EDT) [facility] Quantiferon Interpretation Negative Negative 12/07/2021 9:59 EDT [facility] Comment:No interferon-gamma response to M. tuberculosis antigens was detected. ??Infection with M. tuberculosis is unlikely. A single negative result does not exclude infection with M. tuberculosis. ??In patients at high risk for M. tuberculosis infection, a second test should be considered. TB1 Ag minus Nil 0.01 IU/ml 12/08/19 22 9:59 EDT [facility] TB2 Ag minus Nil 0.01 IU/mL 12/08/19 9:59 EDT [facility] Blood VENOUS BLOOD / Unknown 12/05/2021 13:56 EDT 12/07/2021 9:55 EDT Narrative [facility] - 12/07/2021 9:59 EDT Results were obtained with the [employer] QuantiFERON-TB Gold Plus CLIA. New platform in use 11/16/2020 Provider Outr Resulting Lab IMMUNOLOGY A ND SEROLOGY ORDERABLES [facility] [address] [place] [address] * QUANTIFERON MITOGEN (PERFORMABLE) (12/05/2021 13:56 EDT) Blood VENOUS BLOOD / Unknown 12/05/2021 13:56 EDT 12/06/2021 16:51 EDT Provider Outr Resulting Lab IMMUNOLOGY A ND SEROLOGY ORDERABLES Performing Organization Address [facility] Co de Phone Number [facility] [address] [place] [address] * QUANTIFERON TB2 (PERFORMABLE) (12/05/2021 13:56 EDT) Blood VENOUS BLOOD / Unknown 12/05/2021 13:56 EDT 12/06/2021 16:51 EDT Provider Outr Resulting Lab IMMUNOLOGY A ND SEROLOGY ORDERABLES Performing Organization Address [facility] Co de Phone Number [facility] [address] [place] [address] * QUANTIFERON TB1 (PERFORMABLE) (12/05/2021 13:56 EDT) Blood VENOUS BLOOD / Unknown 12/05/2021 13:56 EDT 12/06/2021 16:51 EDT Provider Outr Resulting Lab IMMUNOLOGY A ND SEROLOGY ORDERABLES Performing Organization Address [facility] Co de Phone Number [facility] [address] [place] [address] * QUANTIFERON NIL (PERFORMABLE) (12/05/2021 13:56 EDT) Blood VENOUS BLOOD / Unknown 12/05/2021 13:56 EDT 12/06/2021 16:51 EDT Provider Outr Resulting Lab IMMUNOLOGY A ND SEROLOGY ORDERABLES Performing Organization Address [facility] Co de Phone Number [facility] [address] [place] [address] documented in this encounter Visit Diagnoses Not on filedocumented in this encounter Care Teams Geology Teacher Relationship Specialty Start Date End Date Tami Olivia [address] [place] [address] PCP - General 12/04/19 documented as of this encounter
== END 2023-12-31 22:41 | disposition home or self-care (01) ==
LOC: LBO 22:42
PROVIDERS: PCP Nurse Practitioner Family; Visit Provider Nurse Practitioner Family
DX: Z51.81 Encounter for therapeutic drug level monitoring (principal)
CPT/HCPCS: 36415; 80162

== ENCOUNTER 2024-05-28 11:57 | Outpatient (CLI) | payer MEDICARE, SELFPAY ==
[2024-05-28 10:00] LABS: Abs Immature Grans 0.04 10^3/uL (0.0-0.06); Absolute Basophil Count 0.05 10^3/uL (0.0-0.2); Absolute Eosinophil Count 0.18 10^3/uL (0.0-0.7); Absolute Lymphocyte Count 1.74 10^3/uL (1.2-3.4); Absolute Monocyte Count 0.72 10^3/uL (0.1-0.8); Absolute Neutrophil Count 5.97 10^3/uL (1.2-6.7); Basophils % 0.6 %; Eosinophils % 2.1 %; HCT 37.6 % (40.0-50.0); HGB 12.8 g/dL (13.5-17.5); Immature Grans % 0.5 %; MCH 31.5 pg (27.0-33.0); MCV 93 fL (80-95); Monocytes % 8.3 %; Neutrophils % 68.5 %; Platelet Count 238 10^3/uL (130-400); RBC 4.06 10^6/uL (4.36-5.78); RDW 12.7 % (11.8-14.1); RDW-SD 43.6 fL
[2024-05-28 10:11] LABS: Hemoglobin A1C 5.3 % (<5.7)
[2024-05-28 10:30] LABS: ALT 16 U/L (16-63); AST 18 U/L (15-37); Albumin 3.6 g/dL (3.4-5.0); Alkaline Phosphatase 52 U/L (46-116); Anion Gap 7.7 mmol/L (3-11); BUN 27 mg/dL (7-18); Bilirubin, Total 0.5 mg/dL (0.2-1.0); CO2 27.3 mmol/L (21.0-32.0); CREATININE 1.6 mg/dL (0.70-1.30); Calcium 9.3 mg/dL (8.5-10.1); Chloride 105 mmol/L (98-107); Estimated GFR 44.93 (mL/min/1.73m2); Glucose 97 mg/dL (74-106); Potassium 4.4 mmol/L (3.5-5.1); Sodium 140 mmol/L (136-145); Total Protein 7.5 g/dL (6.4-8.2)
== END 2024-05-28 11:58 | disposition home or self-care (01) ==
LOC: LBO 12:07
PROVIDERS: PCP Nurse Practitioner Family; Visit Provider Nurse Practitioner Family
DX: Z13.1 Encounter for screening for diabetes mellitus (principal); I48.92 Unspecified atrial flutter; D64.9 Anemia, unspecified
CPT/HCPCS: 36415; 80053; 83036; 85025

== ENCOUNTER 2024-06-02 12:20 | Outpatient (CLI) | payer MEDICARE, SELFPAY ==
[2024-06-02 13:01] LABS: Digoxin 0.26 ng/mL (0.90-2.00); Magnesium 2.1 mg/dL
[2024-06-02 18:22] LABS: PSA, Screening 2.8 ng/mL (<=6.5)
[2024-06-02 18:56] LABS: Hepatitis C Ab w Rflx HCV PCR Negative (Negative)
== END 2024-06-02 12:21 | disposition home or self-care (01) ==
LOC: LBO 12:20
PROVIDERS: PCP Nurse Practitioner Family; Visit Provider Nurse Practitioner Family
DX: I48.91 Unspecified atrial fibrillation (principal); N40.0 Benign prostatic hyperplasia without lower urinary tract symptoms; Z00.00 Encounter for general adult medical examination without abnormal findings
CPT/HCPCS: 36415; 84153; 86803; 80162; 83735

== ENCOUNTER 2024-12-11 04:25 | Outpatient (CLI) | payer MEDICARE, SELFPAY ==
--- NOTE | 2024-12-11 | DI.RAD_ITS ---
Exam(s) XR ARTHRITIS SERIES EXAM: XR ARTHRITIS SERIES CLINICAL HISTORY: HAND SWELLING M79.89 EVAL FOR ARTHRITIS CONCERN FOR RA VS GOUT. TECHNIQUE: 2D digital imaging was performed. COMPARISON: No exams were available for comparison FINDINGS: Two views of both hands: No evidence of fractures nor subluxations. No osseous lesions nor erosions. No abnormal soft tissue calcifications. Carpophalangeal joints appear unremarkable as do the interphalangeal joints. In addition, there are no obvious degenerative changes at the 1st carpometacarpal joints. Carpal row bones also appear unremarkable. IMPRESSION: No significant findings. No erosions nor obvious significant osteoarthritic degenerative changes given this patient's age of 73 years. DATA REPOSITORY: RADIATION DOSE DELIVERED:
== END 2024-12-11 04:45 ==
PROVIDERS: PCP Nurse Practitioner Family; Visit Provider Internal Medicine Rheumatology
DX: M79.89 Other specified soft tissue disorders (principal)
CPT/HCPCS: 73120